=== PATIENT | female | born 2000 | race Caucasian/White ===

== ENCOUNTER 2022-07-21 11:48 | Emergency (ER) | payer MEDICAID, SELFPAY ==
[2022-07-21 12:19] VITALS: BP 114/73; PULSE 117; RESP 22; TEMP 36.7; O2SAT 97
--- NOTE | 2022-07-21 12:23 | ED.GENADULT ---
HPI - General Adult General Time Seen by Provider: 12:23 Date Seen: 07/21/22 Chief complaint: Cough Stated complaint: ear and nose drainage, headache Time Seen by Provider: 07/21/22 12:05 Source: patient, family and RN notes reviewed Mode of arrival: wheelchair Limitations: no limitations History of Present Illness HPI narrative: Patient is a 21-year-old female accompanied by family into the ER with concern of a secondary infection from COVID. She had COVID about 2 weeks ago, recovered without complication, was fine all last week. No current fevers. No last day or so has started with nasal drainage, headache again, has had some otalgia on the left side and today noted ear drainage. Related Data Home Medications Medication Instructions Recorded Confirmed oxybutynin chloride 5 mg tablet mg 07/21/22 Previous Rx's Medication Instructions Recorded amoxicillin 875 mg-potassium 1 tab PO BID #20 tabs 07/21/22 clavulanate 125 mg tablet ciprofloxacin 0.2 %-hydrocortisone 3 drp otic (ear) BID 7 days #10 mL 07/21/22 1 % ear drops,suspension (Cipro HC) Allergies Allergy/AdvReac Type Severity Reaction Status Date / Time ibuprofen Allergy Verified 07/21/22 12:16 latex Allergy Verified 07/21/22 12:16 vancomycin Allergy Verified 07/21/22 12:16 Review of Systems Status of ROS: Reports: 6 or more systems reviewed and unremarkable except as noted in History and below [facility] Social History Smoking Status: Never smoker Do you use any of these nicotine containing products: None How often do you have a drink containing alcohol: never AUDIT-C Alcohol total score: 0 Non-prescribed substance use: denies use service: No Exam Const: Vital Signs, click to edit/add: Vital Signs - 24 hr 07/21/22 12:19 Temperature 98.0 F Pulse Rate [Right Pulse Oximeter] 117 H Respiratory Rate 22 Blood Pressure [Ri ght Upper Arm] 114/73 Pulse Oximetry 97 Oxygen Delivery Me thod Room Air Patient is a 21-year-old female in her wheelchair, alert interactive no apparent stress. Common normals: no apparent distress, average body habitus, oriented x3, no limitations, healthy appearing, alert and well nourished General appearance: cooperative, comfortable, well kempt and well developed HENMT: Other: Pupils equal round reactive to light sclera clear. Right external ear and canal are normal, the tympanic membrane has loss of landmarks, erythema peripherally and mucoid material behind it causing some distortion. She has yellowish greenish drainage in her left ear canal but the external structures are normal. Cannot see down to the tympanic membrane but reviewed with them that this is most definitely perforated due to underlying infection. Anterior nares external nose normal. Oral mucosa is glistening, tongue normal. Uvula is normal without any swelling. Just to the right of the uvula, there is a little white pinpoint spot that could be an early aphthous ulcer that is coming, patient states she is having no pain. Neck is supple, no adenopathy noted. Lungs are clear with good air entry, no tachypnea, no wheezing or crackles noted. CV is regular, no murmur. Neuro: Common normals: oriented x3 Sensorium/orientation: alert Psych: Appearance: well kempt Course Course Hospital Course: Have reviewed with them that she actually appears to have bilateral ear infections, would treat her right ear if this was a presenting complaint. With a perforation in the left tympanic membrane, are going to need to use drops in this ear as well. We discussed cleaning external debris out of the ear, they are comfortable doing so. Have been advised not put anything deep into the canal. Vital Signs Vital signs: Initial Vital Signs Temperature 98.0 F 07/21/22 12:19 Temperature Source Temporal Artery Scan 07/21/22 12:19 Pulse Rate 117 H 07/21/22 12:19 Respiratory Rate 07/21/22 12:19 Blood Pressure 114/73 07/21/22 12:19 Blood Pressure Mean 86 07/21/22 12:19 Blood Pressure Position Sitting 07/21/22 12:19 Pulse Oximetry 97 07/21/22 12:19 Oxygen Delivery Method 07/21/22 12:19 Vital Signs Temperature 98.0 F 07/21/22 12:19 Pulse Rate 117 H 07/21/22 12:19 Respiratory Rate 22 07/21/22 12:19 Blood Pressure 114/73 07/21/22 12:19 Pulse Oximetry 97 07/21/22 12:19 Oxygen Delivery Method 07/21/22 12:19 Temperature 98.0 F 07/21/22 12:19 Pulse Rate 117 H 07/21/22 12:19 Respiratory Rate 22 07/21/22 12:19 Blood Pressure 114/73 07/21/22 12:19 Pulse Oximetry 97 07/21/22 12:19 Oxygen Delivery Method 07/21/22 12:19 Critical Care Time Critical Care Time Critical Care Time: No Discharge Plan Discharge Clinical Impression: Acute right otitis media, Acute otitis media of left ear with perforation Patient Disposition: Home, Self-Care Condition: Stable Instructions: Ruptured Eardrum (ED), How to Use Ear Drops (ED), Ear Infection (ED) Additional Instructions: Start oral antibiotics today and take as prescribed. May need to eat yogurt or use probiotic to help with antibiotic associated diarrhea. Need to use the ear drops to the left ear as there most definitely is a perforation of the eardrum. Need recheck in clinic in about 2 weeks to assess the underlying left eardrum, hopefully this will close off on its own. In the meantime, if you are worsening with concerning symptoms, are not improving in the next few days, would recommend re-evaluation. Prescriptions: New amoxicillin-pot clavulanate 875-125 mg tablet 1 tab PO BID Qty: 20 0RF Cipro HC 0.2-1 % drops,suspension 3 drp otic (ear) BID 7 Days Qty: 10 0RF No Action oxybutynin chloride 5 mg tablet Label Comments: TAKE ONE TABLET BY MOUTH TWICE DAILY Follow Up/Referrals: Ignacia Duran MD [Primary Care Provider] - Stand Alone [facility]
== END 2022-07-21 13:17 | disposition home or self-care (01) ==
PROVIDERS: Emergency Provider Family Medicine; PCP Pediatrics
DX: H66.93 Otitis media, unspecified, bilateral (principal); H72.92 Unspecified perforation of tympanic membrane, left ear
CPT/HCPCS: 87502; 87634; 87635; 99283; 99284

== ENCOUNTER 2023-10-31 19:40 | Emergency (ER) | payer MEDICARE, BC, MEDICAID, SELFPAY ==
[2023-10-31 19:48] VITALS: BP 135/78; PULSE 89; RESP 18; TEMP 36.7; O2SAT 99; BMI 24.8
--- NOTE | 2023-10-31 19:49 | ED.GENADULT ---
HPI - General Adult General Date Seen: 10/31/23 Chief complaint: Ear/Nose/Throat Problem Stated complaint: L ear infection Time Seen by Provider: 10/31/23 19:48 History of Present Illness HPI narrative: 23-year-old female who has a history of paraplegia, wheelchair-bound, presenting to the ER for evaluation of. She does have a history of otitis media in June 2022-treated with Augmentin. She has no history of diabetes or immunosuppression. No cancer chemotherapy. She presents to the ER today with her caregiver. She developed left ear pain radiating to left side of her neck this evening. No other antecedent symptoms such as fever or chills or cough or nasal congestion. No ear trauma. She does have a long history of excessive earwax and normally has an device like a soft screwdriver that she uses to remove her earwax at home. She felt like she might have earwax plug in upper here tonight because she was unable to hear anything. She could not find her device removed the wax and then her ear started hurting a lot anyway. It has not been swollen. No redness. No trauma. Related Data Home Medications ?Medication ?Instructions ?Recorded ?Confirmed oxybutynin chloride 5 mg tablet 5 mg PO BID 07/21/22 10/31/23 indapamide 1.25 mg tablet 1.25 mg PO QAM 10/31/23 10/31/23 potassium chloride 10 mEq 10 meq PO BID 10/31/23 10/31/23 tablet,extended release(part/cryst) Allergies Allergy/AdvReac Type Severity Reaction Status Date / Time ibuprofen Allergy Intermediate 1 Kidney Verified 10/31/23 19:52 vancomycin Allergy Intermediate Swapnil Verified 10/31/23 19:52 Syndrome latex Allergy Mild Rash Verified 10/31/23 19:52 PFSH PFS Social History Smoking Status: Never smoker Do you use any of these nicotine containing products: None How often do you have a drink containing alcohol: never AUDIT-C Alcohol total score: 0 Non-prescribed substance use: denies use service: No Exam Narrative: Exam Narrative: Constitutional: Appears well-developed and well-nourished. Active. Non-toxic appearing. Caregiver attentively at her side HENT: Head: Atraumatic. No signs of injury. No depressed skull fracture, Raccoon Eyes, Slater's sign, or hemotympanum. Face normal. Right ear: Mastoid, pinna, canal are normal. There is a small to moderate amount of cerumen but I am able to see the TM. TM is normal. Left ear: Mastoid and PIN are normal. She does complain of tenderness with palpation of the pinna. No redness. Canal is completely occluded by a soft yellowish/weight is cerumen. Cerumen was extracted using a lighted ear curette. We removed copious cerumen. No foreign body. I was able to visualize the TM which does appear normal. There does appear to be some purulent debris adherent to the wall of the canal and still some residual cerumen that I am not able to remove because it is too uncomfortable for the patient. Clinically consistent with otitis externa on the left ear canal Nose: No nasal discharge. Mouth/Throat: Mucous membranes are moist. Pharynx is normal. Tonsils symmetric. Uvula midline. Airway patent. Eyes: Conjunctivae normal and EOM are normal. Pupils are equal, round, and reactive to light. Right eye exhibits no discharge. Left eye exhibits no discharge. No icterus. Neck: Normal range of motion. Neck supple. No adenopathy. No stridor. No swelling or redness on the left neck. No adenopathy. Trachea midline. Airway patent. Cardiovascular: Normal rate and regular rhythm. No murmur heard. No murmurs, rubs, or gallops. Brisk capillary refill Pulmonary/Chest: Effort normal. No stridor. No respiratory distress. No wheezes.No rhonchi. No rales. No retractions. Musculoskeletal: Normal range of motion. No edema. No tenderness. No deformity. Neurological: Alert. Normal strength. No cranial nerve deficit or sensory deficit. Coordination normal. GCS eye subscore is 4. GCS verbal subscore is 5. GCS motor subscore is 6. Skin: Skin is warm. No rash noted. Const: Vital Signs, click to edit/add: Vital Signs - 24 hr 10/31/23 19:48 Temperature 98.0 F Pulse Rate [Right Pulse Oximeter] 89 Respiratory Rate 18 Blood Pressure [Ri ght Upper Arm] 135/78 Pulse Oximetry 99 Oxygen Delivery Me thod Room Air Course Vital Signs Vital signs: Initial Vital Signs Temperature 98.0 F 10/31/23 19:48 Temperature Source Temporal Artery Scan 10/31/23 19:48 Pulse Rate 89 10/31/23 19:48 Respiratory Rate 18 10/31/23 19:48 Blood Pressure 135/78 10/31/23 19:48 Blood Pressure Mean 97 10/31/23 19:48 Blood Pressure Position Sitting 10/31/23 19:48 Pulse Oximetry 99 10/31/23 19:48 Oxygen Delivery Method Room Air 10/31/23 19:48 Vital Signs Temperature 98.0 F 10/31/23 19:48 Pulse Rate 89 10/31/23 19:48 Respiratory Rate 18 10/31/23 19:48 Blood Pressure 135/78 10/31/23 19:48 Pulse Oximetry 99 10/31/23 19:48 Oxygen Delivery Method Room Air 10/31/23 19:48 Temperature 98.0 F 10/31/23 19:48 Pulse Rate 89 10/31/23 19:48 Respiratory Rate 18 10/31/23 19:48 Blood Pressure 135/78 10/31/23 19:48 Pulse Oximetry 99 10/31/23 19:48 Oxygen Delivery Method Room Air 10/31/23 19:48 Medical Decision Making MDM Narrative Medical decision making narrative: This patient presents for evaluation of left otalgia. The patient has an exam consistent with cerumen impaction, which I removed with a lighted curette curette and resultantly revealed otitis externa. She actually notes significant improvement in her pain just by removing the impacted cerumen. Still mild pain but she thinks it would be easily manageable with Tylenol or ibuprofen at home. Differential considered in this patient with otalgia included mastoiditis, meningitis, perforation, cerumen impaction, mass, dental abscess, or peritonsillar abscess, referred pain, cholesteatoma, otitis externa, etc. Tylenol or Ibuprofen for pain. Topical antibiotic drops for the externa are noted below. Return if increasing pain, fever, decrease in hearing or ear discharge. Follow-up with primary physician in 7-10 days, if symptoms persist and ENT consultation may be needed as outpatient. Precautions for immediate return to the ER for worsening pain, new redness or swelling of the ear or mastoid, fever chills, diffuse headache, or other worsening symptoms. Instymeds prescription for Cortisporin otic 4 drops 4 times daily. Discharge Plan Discharge Clinical Impression: Otitis externa, Cerumen impaction Patient Disposition: Home, Self-Care Condition: Stable Instructions: Swimmer's Ear (ED) Additional Instructions: As we discussed, please come back to the ER if you have worsening pain, increasing redness and swelling of your ear or around her ear, fever, headache, or any problems. Use the antibiotic drops (Cortisporin) 4 drops into her left ear canal 4 times daily for the next 5 days. After she put the drops in her ear, try to keep laying on your right side or till your head so that your left ear point up. This will allow the drops stay in your ear canal to treat the infection. Prescriptions: No Action oxybutynin chloride 5 mg tablet 5 mg PO BID Patient Comments: TAKE ONE TABLET BY MOUTH TWICE DAILY indapamide 1.25 mg tablet 1.25 mg PO QAM potassium chloride 10 mEq tablet,ER particles/crystals 10 meq PO BID Follow Up/Referrals: Ignacia Duran MD [Primary Care Provider] - Stand Alone Forms: [employer] Info Instructions
--- OUTSIDE RECORDS SUMMARY | 2023-10-31 20:44 | XMS_ITS | Clinical Summary ---
Author Organization [employer] [facility] Address [place], [place] [address] Care Team Providers Care Jig Fitter Name Role Phone Ignacia Duran MD Primary Care Provider Maren vailable Allergies Active Allergy Reactions Criticality Noted Date Comments Latex Other - Describe In Comment Field 10/08/2013 Has spina bifida Medications Medication Sig Dispensed Refills Start Date End Date Status multivitamin (MVI) tablet Take 1 tablet by mouth once daily. 0 01/17/2014 Active oxybutynin (DITROPAN) 5 mg tabletIndications:Spi na bifida of dorsal region (HC) Take 1 tablet by mouth once daily. 90 tablet 0 06/09/2015 Active medication order composerIndications:P araplegia (HC),Spina bifida of thoracic region, unspecified hydrocephalus presence Seat Cushion for Wheelchair 1 Each 01/20/2017 Active docusate (COLACE) 100 mg capsule Take 100 mg by mouth. Active silver-foam bandage (AQUACEL AG FOAM) 1.2 %- 10 X 12 bndgIndications:Skin infection Apply topically to affected area(s). 10 Each 06/05/2018 Active naproxen (NAPROSYN) 375 mg tabletIndications:Bur sitis of right shoulder Take 1 tablet by mouth 2 times daily with meals. 20 tablet 08/24/2018 Active Foam Bandage (TENDRA MEPILEX BORDER) 4 X 4 bndgIndications:Press ure injury of left elbow, stage 3 (HC) Apply topically to affected area(s). 10 Each 10/29/2018 Active hydrocolloid dressing 4 X 4 bndgIndications:Skin infection Apply topically to affected area(s). 10 Each 04/20/2019 Active medication order composer Gentamicin 30 mg flush injectable solution 0 04/29/2019 Active OTHER PEDIATRIC FLUIDS Polymyxin 500,000units/1L - Gentamicin 400mg/1L - in Normal Saline for irrigation with 30mL one time daily instill into bladder as instructed 04/20/2019 Active cephalexin (KEFLEX) 500 mg capsule Take 500 mg by mouth. 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 04/29/2011 UTI (urinary tract infection) 04/24/2011 Paraplegia 02/21/2009 Spina bifida of dorsal region 02/21/2009 Resolved Problems Problem Noted Date Diagnosed Date Resolved Date Adjustment disorder with mix ed disturbance of emotions and conduct 07/04/2011 11/23/2018 Immunizations Name Administration Dates Next Due DTaP 01/18/2008,05/06/2005 [id number] (Pediarix) 05/27/2003,03/21/2003,0 2002 HIB PRP-T (ActHIB,Hiberix) 05/27/2003,03/21/2003 ,2002 HPV 9 (Gardasil 9) 06/17/2019,12/18/2017 Hepatitis A (Peds) 01/18/2008,08/08/2006 Hib Conjugate, Unspecified 05/27/2003,03/21/2003 ,2002 Inactivated Polio Vaccine 01/18/2008 Influenza A (H1N1), Inactivated 03/18/2009 Influenza A (H1N1), Inactiva christine (Age 6-35 Mos) 03/30/2004,05/27/2003 Influenza A (H1N1), Inactiva christine (Age >=3 Years) 03/18/2009 Influenza Virus, Unspecified 02/26/2016,02/22/20 09,05/27/2003 Influenza, IIV3 (Age 6-35 mos) 1,03/23/2007,03/30/2004,05/27 Influenza, IIV3 (Age >=3 years) 06/09/19 14,04/23/2012,02/25/2011,02/21,03/23/2007,03/30/2004 Influenza, IIV4 03/27/2021, 0,06/17/2019,03/06,02/26/2016,04/27/2014 MMR 01/18/2008,09/15/2003 Meningococcal Vaccine (Menveo) 06/17/2019,2014 Pneumococcal conj 7-Valent (Prevnar 7) 4,03/21/2003,2002 Tdap 01/16/2015 Tdap, Unspecified 01/16/2015 Varicella Vaccine 01/18/2008,09/15/2003 Family History Medical History Relation Name Comments Diabetes Father Other Father obese,> 500 aravind nds/ from a blood infection Psychiatric illness Mother Bipolar disorder Anesthesia Problem No Family History Blood Disease No Family History Relation Name Status Comments Father blood infection Maternal Grandfather Maternal Grandmother Mother Alive Social History Tobacco Use Types Packs/Day Years Used Date Smoking Tobacco: Passive Smo ke Exposure - Never Smoker Smokeless Tobacco: Never Tobacco Cessation:Counseling Given: Yes Comments:family smokes Alcohol Use Standard Drinks/Week Comments No 0 (1 standard drink = 0.6 oz pur e alcohol) PHQ-2 Answer Date Recorded PHQ-2 TOTAL SCORE 0 01/11/2020 Social Connections Answer Date Recorded Frequency of Communication with Friends and Fami ly Not on file 05/22/2021 Financial Resource Strain Answer Date R ecorded Difficulty of Paying Living Expenses Not on file 05/22/2021 Difficulty of Paying Living Expenses Not on file 05/22/2021 Sex and Gender Information Value Date Recorded Sex Assigned at Not on file Gender Identity Not on file Sexual Orientation Not on file Obstetrics History Para Term AB IAB SAB Ectopic Multiple Livin g Live Births 0 0 0 0 0 0 0 0 0 0 Last Filed Vital Signs Vital Sign Reading Time Taken Comments Blood Pressure 123/80 07/12/2021 1:30 PM [employer] WORK[employer] SUPERVISOR Pulse 98 07/12/2021 1:30 PM [employer] SUPER[employer] Temperature 36.9 ??C (98.5 ??F) 07/12/2021 1:30 PM CS T Respiratory Rate 18 07/03/2015 5:27 PM [employer] SUPERVISOR Oxygen Saturation 98% 07/12/2021 1:30 PM [employer] SUPER[employer]OR Inhaled Oxygen Concentration - - Weight 61.2 kg (135 lb) 07/03/2015 5:27 PM [employer] SUPERVISOR Height - - Body Mass Index - - Plan of Treatment Health Maintenance Due Date Last Done Comments HIV for age 15-65 2017 HPV series for age 9-26 (3 - 3-dose series) 09/09/2019 06/17/2019, 12/18/2017 BMI (ht and wt on same day) for age 18+ 2020 Hepatitis C screening for age 18-79 2020 Depression screening for age 12+ 01/12/2021 01/13/2020, 01/11/2020, 12/29/2018, Additional history exists COVID-19 vaccine series (2022- season) 2023 05/02/2022, 03/27/2021, 09/18/2020, Additional history exists Pap test for age 21-65 09/17/2023 Influenza for age 9-49 01/25/2024 , 03/22/2020, 06/17/2019, Additional history exists Tetanus booster 01/16/2025 01/16/2015, 01/16/2015 Pneumococcal series for age 6-64 Aged Out 05/27/2003, 03/21/2003, 2002 No longer eligible based on patient's age to complete this topic Tdap Completed 01/16/2015, 01/16/2015 Meningococcal series for age 11-21 Completed 06/17/2019, 01/16/2015 Advance Directives Documents on File Type Date Recorded Patient [employer] Carpenter Expl anation Power of Physician Asst 06/24/2023 1:00 PM Care Teams Jig Fitter Relationship Specialty Start Date End Date Ignacia Duran MD PCP - General Pediatric 10/07/19
--- OUTSIDE RECORDS SUMMARY | 2023-10-31 20:45 | XMS_ITS | Patient Health Record ---
Author Organization [facility] Address [facility] [address] [place] [address] Care Team Providers Care Lodge Sales Associate Name Role Phone Ignacia Duran MD Primary Care Provider [phone] ADOLFO PAZ MD Reason For Referral No Information Medications Medication SIG (Take, Route, Fr equency, Duration) Notes Start Date End Date Status Gentamicin Sulfate 40 MG/ML 30ML QHS Intravesically BID for 30 days 12/30/2019 Active Problems Problem Type SNOMED Code ICD Code Onset Dates Problem Status W/U Status Risk Notes Problem 776860460 Neurogenic bladd er (N31.9) Active confirmed Problem Hydrocephalus (269600100) Hydrocephalus (G91.9) Active confirmed Problem 01709898 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 Problem 660096791 Acute pyonephros is (N13.6) Active confirmed Problem 616474171 Obesity (BMI 30-39.9) (E66.9) Active confirmed Problem 04129582 Spina bifida of lumbosacral region with 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) Active confirmed Problem 41301976 Acute pyelonephritis (N10) Active confirmed Problem Sepsis (83090779) Sepsis, due to unspecified organism (A41.9) Active confirmed Problem 07510262 Bilateral nephrolithiasis (N20.0) Active confirmed Plan Of Treatment Pending Test Test Name Order Date UDS- Flow, ru, EMG, CMG w/UA/UC and mario tion 12/02/2019 Insurance Providers Payer Name Payer Address Payer Phone Subscriber Number Group Number Insured Name Patient Relationship to Insured Coverage Start Date Coverage End Date [facility] [address] [address] [place] [id number] Fe Escudero Child - Insured has Financial Responsibility [facility] [employer] [address] [address] [place] [address] [id number] Laina Escudero Self - patient is the insured
--- OUTSIDE RECORDS SUMMARY | 2023-10-31 20:45 | XMS_ITS | Clinical Summary ---
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 Name Role Phone Carlos Joyner MD Unavailable [phone] Jadon Murray MD Unavailable Maru Villagomez RN Unavailable Unavailable Ang Slade MD Unavailable Carlos Joyner MD Unavailable [phone] Ang Slade MD Unavailable Lakshmi Wilhelm-C Unavailable Heladio Willoughby MD Primary Care Provider Heladio Willoughby MD Unavailable Alissa Perez PA-C Unavailable [phone] LaLakshmi morales-C Unavailable [phone] Allergies Active Allergy Reactions Criticality Noted Date Comments Ibuprofen Nephrotoxicity 02/04/2023 Due to hx of horseshoe kidney and recurrent nephrolithiasis Latex 10/04/2010 PN: Converted from LW Latex Sensitivity Flag Nsaids Nephrotoxicity 04/16/2023 Due to hx of horseshoe kidney and nephrolithiasis Vancomycin 02/17/2011 Other reaction(s): redmans Other reaction(s): redmans Medications Medication Sig Dispensed Refills Start Date End Date Status docusate sodium (COLACE) 100 MG capsule Take 100 mg by mouth every evening Active Elastic Bandages & Supports (PATEL ELASTIC BANDAGE 4) MISC Apply 1 each topically 11/09/2018 Active Multiple Vitamin (MULTI-VITAMINS) TABS Take 1 tablet by mouth every evening Active sodium chloride 0.9%, bottle, 0.9 % irrigation Irrigate with 60 mLs as directed 2 times daily Instill 60 ml into bladder along with Gentamicin solution Active MONOJECT HYPODERMIC NEEDLE 18G X 1 MISC USE TO FLUSH BLADDER 11/09/2019 Active B-D SYRINGE LUER-OLGA 30 ML MISC USE TO FLUSH BLADDER 11/09/2019 Active NEW MEDIndications:Recur rent UTI 480 MG Gentamicin in 1 Liter 0.9 Normal Saline. Instill 60 mL of Gentamicin solution into bladder at HS 1800 mL 11 03/15/2020 Active Additional Information Patient taking differently: EVERY EVENING, 480 MG Gentamicin in 1 Liter 0.9 Normal Saline. Instill 60 mL of Gentamicin solution into bladder at HS, Reported on 11/13/2021 Saline Bacteriostatic (SODIUM CHLORIDE BACTERIOSTATIC) 0.9 % SOLN flushIndications:Rec urrent UTI Irrigate with 30 mLs as directed At Bedtime for 31 doses 930 mL 11 08/09/2020 Active NEW MEDIndications:DUPIC ATE 480mg Gentamicin in one liter of Normal Saline. Instill 30 ml of gentamicin solution into bladder at bedtime 930 mL 11 08/09/2020 Active acetaminophen (TYLENOL) 325 MG tablet Take 325-650 mg by mouth every 6 hours as needed for mild pain Active bisacodyl (DULCOLAX) 5 MG EC tablet 0 Refill(s), Maintenance 03/13/2021 Active polyethylene glycol (MIRALAX) 17 GM/Dose powder See Instructions, 1-3 tsp as needed to maintain soft stools, # 527 g, 1 Refill(s), Maintenance, other 03/13/2021 Active Wound Dressings (MEDIHONEY CA ALGINATE 2X2) PADSIndications:Pres sure ulcer acquired in Externally apply 1 each topically daily 10 each 04/16/2023 Active indapamide (LOZOL) 1.25 MG tabletIndications:Hy percalciuria Take 1 tablet (1.25 mg) by mouth every morning 90 tablet 3 06/17/2023 Active potassium chloride ER (K-TAB) 20 MEQ CR tabletIndications:Hy percalciuria Take 1 tablet (20 mEq) by mouth daily 90 tablet 3 06/17/2023 Active potassium chloride ER (KLOR-CON M) 10 MEQ CR tabletIndications:Hy percalciuria Take 1 tablet (10 mEq) by mouth 2 times daily 90 tablet 3 06/23/2023 Active oxyBUTYnin (DITROPAN) 5 MG tabletIndications:Bl adder spasms TAKE ONE TABLET BY MOUTH TWICE DAILY 180 tablet 07/18/2023 Active sulfamethoxazole-tri methoprim (BACTRIM DS) 800-160 MG tabletIndications:Re current UTI Take 1 tablet by mouth 2 times daily 14 tablet 08/14/2023 Active Additional Information Patient not taking.Reported on 09/05/2023 Hospital, Clinic, or Other Facility Administered Medication Ordered Dose Route Frequency Start Date End Date Status medroxyPROGESTERone (DEPO-PROVERA) injection 150 mgIndications: control counseling 150 mg IM EVERY 3 MONTHS 04/16/2023 04/10/2024 Ac tive Active Problems Problem Noted Date Diagnosed Date Mild intellectual disability 04/18/2023 Overview: Dx through Neuropsych testing in 2021 Bilateral nephrolithiasis 03/31/2023 Horseshoe kidney 03/05/2023 History of major vascular surgery 08/02/2020 Hx of thrombosis 08/02/2020 Overview: In arm, 2/2 arm getting stuck overnight. Was on heparin injections. 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 10/15/2023 Travel 10/14/[address] [facility] [address] [place] [phone] Heladio Willoughby MD Dme 10/10/2023 Travel 10/06/2023 PRE VISIT [facility] [address] [phone] Lakshmi Wilhelm PA-C Pre Visit Planning - Done (UDS for neurogenic bladder/urinary incontinence. Records available in EPIC.) 10/01/2023 Telephone [facility] [address] [phone] Alissa Perez PA-C Appointment (Rescheduled 11/25 Appt) 09/24/2023 Orders Only [facility] Service Line [address] [place] [phone] Carlos Joyner MD 09/23/2023 8:00 AM CDT Virtual Visit [facility] [address] [phone] Carlos Joyner MD Kidney stone (Primary Dx) 09/18/[address] [facility] [address] [place] [phone] Heladio Willoughby MD Medication Question 09/18/2023 MyC Medical Advice [facility] [address] [phone] Carlos Joyner MD 09/17/2023 Telephone [facility] [address] [phone] Carlos Joyner MD Orders; update perscription order notes 09/17/[address] [facility] [address] [place] [phone] Heladio Willoughby MD Orders 09/17/2023 PRE VISIT [facility] [address] [phone] Carlos Joyner MD Pre Visit Planning - Done 2023 8:16 AM CDT - 2023 11:59 PM CDT Hospital Encounter [facility] [address] [place] [place] [address] [place] [phone] Carlos Joyner MD Kidney stone Discharge Disposition: Home or Self Care 2023 8:15 AM CDT Hospital Encounter [facility] [address] [place] [address] [place] [phone] Carlos Joyner MD Kidney stone Discharge Disposition: Home or Self Care 2023 Orders Only [facility] [address] [phone] Roberto Rod Kidney stone 2023 Travel 09/14/2023 Orders Only [facility] [address] [phone] Rosita Velasco RN Urinary incontinence, unspecified type (Primary Dx) 09/08/2023 MyC Medical Advice [address] [phone] Bhavna Ferris 09/08/[address] [phone] Lakshmi Wilhelm PA-C Appointment 09/05/2023 8:30 AM CDT Virtual Visit [address] [phone] Lakshmi Wilhelm PA-C Urinary incontinence, unspecified type (Primary Dx); Neurogenic bladder; Continuous leakage of urine 09/05/[address] [phone] Heladio Willoughby MD Orders 09/04/2023 MyC Medical Advice [address] [phone] Tanisha Kaur RN 09/03/2023 Telephone [facility] [address] [phone] Carlos Joyner MD Prior Auth - Medication (Gentamicin 480mg/l bladder irrigation (compounded)-primar y INSURANCE PA APPROVED) 09/03/[address] [phone] Heladio Willoughby MD Nurse Advice Line (update) 09/02/2023 11:00 AM CDT Office Visit [address] [phone] Heladio Willoughby MD Diarrhea of presumed infectious origin (Primary Dx); Rectal bleeding; Continuous leakage of urine; Neurogenic bladder; Irregular heartbeat; control counseling; Paraplegia (H) 09/02/2023 Travel 09/01/2023 Travel 08/29/[address] [facility] [address] [place] [phone] Heladio Willoughby MD wound care orders; Referral; [facility] 08/29/[address] [facility] [phone] [place] [phone] Heladio Willoughby MD Forms; Orders 08/26/2023 1:30 PM CDT Virtual Visit [facility] [address] [phone] Lakshmi Wilhelm PA-C Neurogenic bladder (Primary Dx) 08/22/2023 Telephone [facility] [address] [phone] Carlos Joyner MD Prior Auth - Medication (Gentamicin 480mg/l bladder irrigation (compounded)-PA DENIED-APPEAL INITIATED TO [employer]) 08/18/[address] [facility] [address] [place] [phone] Analisa Conner 08/18/2023 [facility] Medical Advice [facility] [phone] [place] [phone] Heladio Willoughby MD Call To Schedule Appointment (Follow up: D... 08/13/2023 11:[address] [facility] [id number] [place] [phone] Recurrent UTI 08/13/2023 Travel 08/12/2023 Telephone [facility] [address] [phone] Rosita Velasco RN Clinic Care Coordination - Follow-up (Symptoms ) 08/05/2023 Medical Correspondence [facility] [address] [place] [phone] Scan, Non-Provider 08/01/2023 Documentation Only [facility] [address] 4th [place] [phone] Carlos Joyner MD Forms; Orders from Last 3 Months Immunizations Name Administration Dates Next Due DTAP (<7y) 01/18/2008,05/06/2005 DTaP, Unspecified 01/16/2015 DTaP/HepB/IPV 05/27/2003,03/21/2003,2002 Flu, Unspecified 02/26/2016,02/21/2009, 4 E3g3-13 Novel Flu 03/18/2009 T9b1-74 Novel Flu P-free 03/30/2004,05/27/2003 HEPATITIS A (PEDS 12M-18Y) 01/18/2008,08/08/2006 HIB (PRP-T) 05/27/2003,03/21/2003,2002 HIB, Unspecified 05/27/2003,03/21/2003, 3 HPV9 04/16/2023,06/17/2019,12/18/2017 Influenza (H1N1) 03/18/2009 Influenza (IIV3) PF 06/09/2013, 2,02/25/2011,02/21,03/23/2007,03/30/2004 Influenza Vaccine 18-64 (Flublok) 03/05/2023 Influenza Vaccine >6 months,quad, PF 12/2021,03/27/2021,03/22/2020,06/17,03/06/2018,02/26/2016,04/27/2014 Influenza Vaccine, 6+MO IM (QUADRIVALENT W/PRESERVATIVES) 05/02/2022,03/27/2021 Influenza, seasonal, injectable, PF 11/2 01/2012,02/25/2011,02/21/2009,03/23,03/30/2004,05/27/2003 MMR 01/18/2008,09/15/2003 Meningococcal ACWY (Menveo??) 06/17/2019, 015 Pneumococcal (PCV 7) 05/27/2003,03/21/2003,11/22 Poliovirus, inactivated (IPV) 01/18/2008, 005 TDAP (Adacel,Boostrix) 01/16/2015 Varicella 01/18/2008,09/15/2003 Family History Medical History Relation Comments Diabetes Father Morbid Obesity Father Mental Illness Mother Bipolar disorder Relation Status Comments Father Mother Social History Tobacco Use Types Packs/Day Years Used Date Smoking Tobacco: Never Smokeless Tobacco: Never Tobacco Cessation:Counseling Given: Not Answered Alcohol Use Standard Drinks/Week Comments Not Currently 0 (1 standard drink = 0.6 oz pur e alcohol) PHQ-2 Answer Date Recorded PHQ-2 Score 0 06/24/2023 Adolescent Education Answer Date Record ed Getting School Help Needed Not on file 02/15 Food Insecurity Answer Date Recorded Within the past 12 months, d id you worry that your food would run out before you got money to buy more? No 04/16/2023 Within the past 12 months, d id the food you bought just not last and you didn? t have money to get more? No 04/16/2023 Housing Stability Answer Date Recorded Do you have housing? Yes 04/16/2023 Are you worried about losing your housing? No 04/16/2023 Financial Resource Strain Answer Date R ecorded Within the past 12 months, h ave you or your family members you live with been unable to get utilities (heat, electricity) when it was really needed? No 04/16/2023 Transportation Needs Answer Date Record ed Within the past 12 months, h as lack of transportation kept you from medical appointments, getting your medicines, non-medical meetings or appointments, work, or from getting things that you need? Yes 04/16/2023 Sex and Gender Information Value Date Recorded Sex Assigned at Not on file Gender Identity Not on file Sexual Orientation Not on file Last Filed Vital Signs Vital Sign Reading Time Taken Comments Blood Pressure 116/64 09/02/2023 10:55 AM CDT Pulse 97 09/02/2023 10:55 AM CDT Temperature 36.9 ??C (98.4 ??F) 09/02/2023 10:55 AM C DT Respiratory Rate 20 09/02/2023 10:55 AM CDT Oxygen Saturation 97% 09/02/2023 10:55 AM CDT Inhaled Oxygen Concentration - - Weight 65.8 kg (145 lb) 10/15/2023 9:01 AM CDT Height 147.3 cm (4' 10) 10/15/2023 9:01 AM CDT Body Mass Index 30.31 10/15/2023 9:01 AM CDT Plan of Treatment Upcoming Encounters Date Type Department Care Team (Late st Contact Info) Description 11/26/2023 PRE VISIT [facility] [address] [phone] Alissa Perez PA-C [address] [place], [place] [phone] Previsit 12/08/2023 9:30 AM CDT Office Visit [facility] [address] [phone] [place] [address] [place], [place] [phone] Alissa Perez PA-C [address] [place], [place] [phone] Health Maintenance Due Date Last Done Comments ANNUAL REVIEW OF HM ORDERS 2002 PAP 09/17/2023 MEDICARE ANNUAL WELLNESS VISIT 04/16/2024 04/16/2023 DTAP/TDAP/TD IMMUNIZATION (8 - Td or Tdap) 01/16/2025 01/16/2015, 01/16/2015, 01/18/2008, Additional history exists ADVANCE CARE PLANNING 04/23/2028 04/23/2023 , 04/18/2023, 09/30/2022, Additional history exists CHLAMYDIA SCREENING 07/15/2028 Postpone d from 2002 (Patient Request) HEPATITIS C SCREENING 04/16/2043 Postpo florentin from 2020 (Other) HIV SCREENING 04/16/2043 Postponed from 2017 (Other) HEPATITIS B IMMUNIZATION Completed 004, 03/21/2003, 2002 Pneumococcal Vaccine: Pediatrics (0 to 5 Years) and At-Risk Patients (6 to 64 Years) Aged Out 05/27/2003, 03/21/2003, 2002 No longer eligible based on patient's age to complete this topic IPV IMMUNIZATION Completed 01/18/2008, 04/2005, 05/27/2003, Additional history exists MENINGITIS IMMUNIZATION Completed 06/17/2019, 01/16 INFLUENZA VACCINE Completed 03/05/2023, , 05/02/2022, Additional history exists COVID-19 Vaccine Completed 03/21/2023, 06/2020, 09/18/2020, Additional history exists HPV IMMUNIZATION Completed 04/16/2023, , 12/18/2017 PHQ-2 (once per calendar year) Completed 10/15/2023, 06/24/2023, 04/16/2023, Additional history exists RSV MONOCLONAL ANTIBODY Aged Out No l onger eligible based on patient's age to complete this topic Medical Devices Implanted Type Area Poacher Operator Device Identifier Shelf Expiration Date Model / Serial / Lot Stent Ureteral Percuflex Plus [id number] - [id number] Implanted:Qty: 1 on 11/12/2021 by Carlos Joyner MD at [facility] Stent Right: Abdomen [employer] [id number] 12/26/2022 [id number] / / [id number] Ureteral Catheter 5 [place] Implanted:Qty: 1 on 03/31/2023 by Elizabeth Jacobsen MD at [facility] Right: Ureter 02/02/2026 [id number] / / [id number] Description:5 arabic Uretera l catheter used as a stent in right ureter 5 [place] Island[place] Open Ended Catheter Implanted:Qty: 1 on 03/31/2023 by Elizabeth Jacobsen MD at [facility] Left: Ureter 02/19/2026 [id number] / / [id number] Explanted Type Area Poacher Operator Device Identifier Shelf Expiration Date Model / Serial / Lot Stent Ureteral Percuflex Plus [id number] - [id number] Implanted:Qty: 1 on 05/10/2021 by Carlos Joyner MD at [facility] Explanted:Qty: 1 on 08/09/2021 by Jane Gomez MD at [facility] Stent Right: Urethra [employer] 06/14/2022 [id number] Description:Ureter Stent Ureteral Percuflex Plus [id number] - [id number] Implanted:Qty: 1 on 05/10/2021 by Carols Joyner MD at [facility] Explanted:Qty: 1 on 08/09/2021 by Jane Gomez MD at [facility] Stent Left: Urethra [employer] 07/25/2022 [id number] Stent Ureteral Percuflex Plus [id number] - [id number] Implanted:Qty: 1 on 08/09/2021 by Jane Gomez MD at [facility] Explanted:Qty: 1 on 11/12/2021 at [facility] Stent Right: Ureter [employer] 02/29/2024 [id number] Stent Ureteral Percuflex Plus [id number] - [id number] Implanted:Qty: 1 on 08/09/2021 by Jane Gomez MD at [facility] Explanted:Qty: 1 on 11/12/2021 at [facility] Stent Right: Ureter [employer] 02/29/2024 [id number] 5 Fr X 22cm Ureteral Stent Explanted:Qty: 1 on 02/07/2020 by Carlos Joyner MD at [facility] COOK 5 Fr X 22cm Ureteral Stent Explanted:Qty: 1 on 02/07/2020 by Carlos Joyner MD at [facility] COOK Procedures Procedure Name Priority Date/Time Associated Diagnosis Comments US RENAL COMPLETE NON-VASCULAR Routine 2023 9:45 AM CDT Kidney stone BASIC METABOLIC PANEL Routine 2023 9:45 AM CDT Kidney stone XR KUB Routine 2023 8:47 AM CDT Kidney stone URINE CULTURE Routine 09/08/2023 9:30 AM CDT Urinary incontinence, unspecified type URINE MICROSCOPIC EXAM Routine 09/08/2023 9:30 AM CDT Neurogenic bladder Continuous leakage of urine UA MACROSCOPIC WITH REFLEX TO MICRO AND CULTURE Routine 09/08/2023 9:30 AM CDT Neurogenic bladder Continuous leakage of urine HCG QUALITATIVE URINE Routine 09/02/2023 12:13 PM CDT control counseling EKG 12-LEAD COMPLETE W/READ - CLINICS Routine 09/02/2023 12:11 PM CDT Irregular heartbeat URINE CULTURE Routine 08/13/2023 9:54 AM CDT Recurrent UTI URINE MICROSCOPIC EXAM Routine 08/13/2023 9:54 AM CDT Recurrent UTI URINE MACROSCOPIC WITH REFLEX TO MICRO Routine 08/13/2023 9:54 AM CDT Recurrent UTI from Last 3 Months Results * US Renal Complete Non-Vascular (2023 9:45 AM CDT) Anatomical Region Laterality Modality Abdomen/Pelvis Ultrasound Impressions 2023 1:57 PM CDT IMPRESSION: 1. ??No hydronephrosis. SARANYA HALL MD SYSTEM ID: [id number] Narrative 2023 1:57 PM CDT US RENAL COMPLETE NON-VASCULAR 2023 9:45 AM CLINICAL HISTORY: Kidney stone TECHNIQUE: Routine Bilateral Renal and Bladder Ultrasound. COMPARISON: CT 04/01/2023 FINDINGS: The kidneys are suboptimally visualized due to horseshoe configuration and bowel gas. No hydronephrosis on either side. Possible nonobstructing left renal calculi. BLADDER: Decompressed. Procedure Note Saranya Hall MD - 2023 US RENAL COMPLETE NON-VASCULAR 2023 9:45 AM CLINICAL HISTORY: Kidney stone TECHNIQUE: Routine Bilateral Renal and Bladder Ultrasound. COMPARISON: CT 04/01/2023 FINDINGS: The kidneys are suboptimally visualized due to horseshoe configuration and bowel gas. No hydronephrosis on either side. Possible nonobstructing left renal calculi. BLADDER: Decompressed. IMPRESSION: 1. No hydronephrosis. SARANYA HALL MD SYSTEM ID: [id number] Carlos Joyner MD IMG US ORDERABLES * Basic metabolic panel (Ca, Cl, CO2, Creat, Gluc, K, Na, BUN) (2023 9:45 AM CDT) [facility] Sodium 139 135 - 145 mmol/L 2023 10:12 AM CDT LABORATORY Comment:Reference intervals for this test were updated on 02/18/2023 to more accurately reflect our healthy population. There may be differences in the flagging of prior results with similar values performed with this method. Interpretation of those prior results can be made in the context of the updated reference intervals. Potassium 4.1 3.4 - 5.3 mmol/L 2023 10:12 AM CDT LABORATORY Chloride 106 98 - 107 mmol/L 2023 10:12 AM CDT LABORATORY Carbon Dioxide (CO2) 23 22 - 29 mmol/L 2023 10:12 AM CDT LABORATORY Anion Gap 10 7 - 15 mmol/L 2023 10:12 AM CDT LABORATORY Urea Nitrogen 10.9 6.0 - 20.0 mg/dL 2023 10:12 AM CDT LABORATORY Creatinine 0.51 0.51 - 0.95 mg/dL 2023 10:12 AM CDT LABORATORY GFR Estimate >90 >60 mL/min/1. 73m2 2023 10:12 AM CDT LABORATORY Calcium 9.5 8.6 - 10.0 mg/dL 2023 10:12 AM CDT LABORATORY Glucose 95 70 - 99 mg/dL 2023 10:12 AM CDT LABORATORY Blood STRUCTURE OF RIGHT UPPER LIMB / Unknown Venipuncture / Unknown 2023 9:45 AM CDT 2023 9:45 AM CDT Carlos Joyner MD LAB - BLOOD ORDERA BLES LABORATORY [facility] [address] Lab (1st floor, no room number) [place] [address] * XR KUB (2023 8:47 AM CDT) Anatomical Region Laterality Modality Abdomen/Pelvis Radio Fluoroscop y Impressions 2023 1:47 PM CDT IMPRESSION: Unremarkable bowel gas pattern. Previously seen stents are no longer demonstrated. No definite urolithiasis demonstrated currently. BAY GROSS MD Narrative 2023 1:47 PM CDT ABDOMEN ONE VIEW 2023 8:47 AM HISTORY: Kidney stone. COMPARISON: February 08, 2020. Procedure Note Bay Gross MD - 2023 ABDOMEN ONE VIEW 2023 8:47 AM HISTORY: Kidney stone. COMPARISON: February 08, 2020. IMPRESSION: Unremarkable bowel gas pattern. Previously seen stents are no longer demonstrated. No definite urolithiasis demonstrated currently. BAY GROSS MD Carlos Joyner MD IMG DIAGNOSTIC MAYLIN GING ORDERABLES * (ABNORMAL) UA Macroscopic with reflex to Microscopic and Culture - Lab Collect (09/08/2023 9:30 AM CDT) Color Urine Yellow Colorless, Straw, Light Yellow, Yellow 09/08/2023 11:54 AM CDT LABORATORY Appearance Urine Cloudy(A) Clear 09/08/19 11:54 AM CDT LABORATORY Glucose Urine Negative Negative mg/dL 09/08/2023 11:54 AM CDT LABORATORY Bilirubin Urine Negative Negative 11:54 AM CDT LABORATORY Ketones Urine Negative Negative mg/dL 09/08/2023 11:54 AM CDT LABORATORY Specific Pelzer Urine 1.020 1.003 - 1.035 09/08/2023 11:54 AM CDT LABORATORY Blood Urine Trace(A) Negative 09/08/2023 11:54 AM CDT LABORATORY pH Urine 6.0 5.0 - 7.0 09/08/2023 11:54 AM CDT LABORATORY Protein Albumin Urine Negative Negative mg/dL 09/08/2023 11:54 AM CDT LABORATORY Urobilinogen Urine 0.2 0.2, 1.0 E.U./dL 09/08/2023 11:54 AM CDT LABORATORY Nitrite Urine Positive(A) Negative 09/08/2023 11:54 AM CDT LABORATORY Leukocyte Esterase Urine Large(A) Negative 09/08/2023 11:54 AM CDT LABORATORY Urine URINE SPECIMEN FROM URINARY CONDUIT / Unknown Non-blood Collection / Unknown 09/08/2023 9:30 AM CDT 09/08/2023 11:38 AM CDT Heladio Willoughby MD LAB - URINE ORDERABL ES LABORATORY [facility] [address] [facility] Lab (no room number, 1st floor of clinic) [place] [address], [facility] * (ABNORMAL) Urine Microscopic Exam (09/08/2023 9:30 AM CDT) Only the most recent of2 resultswithin the time period is included. Bacteria Urine Many(A) None Seen /HPF LINDA 09/08/2023 11:54 AM CDT LABORATORY RBC Urine 2-5(A) 0-2 /HPF /HPF LINDA 09/08/2023 11:54 AM CDT LABORATORY WBC Urine 50-100(A) 0-5 /HPF /HPF LINDA 09/08/2023 11:54 AM CDT LABORATORY Squamous Epithelials Urine Few(A) None Seen /LPF LINDA 09/08/2023 11:54 AM CDT LABORATORY Urine URINE SPECIMEN FROM URINARY CONDUIT / Unknown Non-blood Collection / Unknown 09/08/2023 9:30 AM CDT 09/08/2023 11:38 AM CDT Heladio Willoughby MD LAB - URINE ORDERABL ES RM LABORATORY [facility] [address] [facility] (no room number, 1st floor of clinic) [place] [address] [facility] * (ABNORMAL) Urine Culture Aerobic Bacterial (09/08/2023 9:30 AM CDT) Only the most recent of2 resultswithin the time period is included. Culture 50,000-100,000 CFU/mL Gram positive cocci(A) 09/09/2023 2:26 PM CDT [facility] Culture 50,000-100,000 CFU/mL Gram positive cocci(A) 09/09/2023 2:26 PM CDT [facility] Culture 50,000-100,000 CFU/mL Gram positive cocci(A) 09/09/2023 2:26 PM CDT [facility] Culture <10,000 CFU/mL Non lactose fermenting gram negative bacilli(A) 09/09/2023 2:26 PM CDT [facility] Urine URINE SPECIMEN OBTAINED VIA INDWELLING URINARY CATHETER / Unknown Non-blood Collection / Unknown 09/08/2023 9:30 AM CDT 09/08/2023 11:38 AM CDT Lakshmi Wilhelm PA-C LAB - MICRO GENE RAL ORDERABLES [facility] Inf. Diseases Diag. Lab [address] [facility], [address] [place] [address], [place] * HCG qualitative urine (09/02/2023 12:13 PM CDT) hCG Urine Qualitative Negative Negative LINDA 09/02/2023 12:19 PM CDT LABORATORY Comment:This test is for scr eening purposes. Results should be interpreted along with the clinical picture. Confirmation testing is available if warranted by ordering [id number], HCG Quantitative . Urine URINE SPECIMEN / Unknown Non-blood Collection / Unknown 09/02/2023 12:13 PM CDT 09/02/2023 12:13 PM CDT Heladio Willoughby MD LAB - URINE ORDERABL ES LABORATORY [facility] [place] [facility] [address] [facility] (no room number, 1st floor of clinic) [place] [address], [facility] * EKG 12-lead complete w/read - Clinics (09/02/2023 12:11 PM CDT) Heladio Willoughby MD ECG ORDERABLES * (ABNORMAL) UA reflex to Microscopic (08/13/2023 9:54 AM CDT) Color Urine Yellow Colorless, Straw, Light Yellow, Yellow 08/13/2023 10:02 AM CDT LABORATORY Appearance Urine Cloudy(A) Clear 08/13/19 24 10:02 AM [facility] Glucose Urine Negative Negative mg/dL 08/13/2023 10:02 AM [facility] Bilirubin Urine Negative Negative 4 10:02 AM T LABORATORY Ketones Urine Negative Negative mg/dL 08/13/2023 10:02 AM CDT LABORATORY Specific Pelzer Urine 1.025 1.003 - 1.035 08/13/2023 10:02 AM T LABORATORY Blood Urine Trace(A) Negative 08/13/2023 10:02 AM [facility] pH Urine 6.0 5.0 - 7.0 08/13/2023 10:02 AM [facility] Protein Albumin Urine Negative Negative mg/dL 08/13/2023 10:02 AM [facility] Urobilinogen Urine 0.2 0.2, 1.0 E.U./dL 08/13/2023 10:02 AM [facility] Nitrite Urine Positive(A) Negative 08/13/2023 10:02 AM CDT LABORATORY Leukocyte Esterase Urine Moderate(A) Negative 08/13/2023 10:02 AM CDT LABORATORY Urine MID-STREAM URINE SPECIMEN / Unknown Non-blood Collection / Unknown 08/13/2023 9:54 AM CDT 08/13/2023 9:54 AM CDT Lakshmi Wilhelm PA-C LAB - URINE DENIE HUAN RM LABORATORY [facility] [place] [facility] [address] [facility] (no room number, 1st floor of clinic) [place] [address], [facility] from Last 3 Months Advance Directives For more information, please contact: [phone] Documents on File Type Date Recorded Patient Rhia Expl anation Advance Directives and Living Will 04/23/2023 First Fiduciary [place] (GUARDIAN; SEE ACP TAB/SCANNED LIST FOR AUTHORIZED STAFF) Legal Guardianship 04-08-2023 Advance Directives and Living Will 09/30/2022 superseded by 04-08-2023 lg; Legal Temporary Guardianship 06-24-2022 to 04-25-2023 Advance Directives and Living Will 09/30/2022 superseded by 023 order; Legal Temporary Guardianship 02-07-2022 to 06-14-2022 Advance Directives and Living Will 04/12/2022 superseded by 022 order: Legal Temporary Guardianship 09-27-2021 to 06-14-2022 * Full Code (Latest Code Status on File) Date Activated Date Inactivated Comments 04/02/2023 8:30 PM 04/04/2023 4:39 PM All basic a nd advanced life-sustaining interventions are performed as appropriate Question Answer Comments Code status determined by: Discussion with patie nt/ legal decision maker * Full Code Date Activated Date Inactivated Comments 03/31/2023 5:39 PM 04/02/2023 8:30 PM All basic an d advanced life-sustaining interventions are performed as appropriate Question Answer Comments Code status determined by: Unable to det ermine; FULL CODE until documents or legal decision maker available * Full Code Date Activated Date Inactivated Comments 11/12/2021 10:12 PM 11/13/2021 8:25 PM All basic a nd advanced life-sustaining interventions are performed as appropriate Question Answer Comments Code status determined by: Discussion with patie nt/ legal decision maker * Full Code Date Activated Date Inactivated Comments 02/12/2020 12:41 PM 11/12/2021 12:15 PM Question Answer Comments Code status determined by: Discussion with patie nt/ legal decision maker * Full Code Date Activated Date Inactivated Comments 02/05/2020 10:00 AM 02/12/2020 12:41 PM All basic and advanced life-sustaining interventions are performed as appropriate Question Answer Comments Code status determined by: Unable to dis cuss and no AD/POLST on file; continue PREVIOUSLY ORDERED code status Care Teams Assembly Machine Tool Setter Relationship Specialty [place] [address] [facility] [place] [address] PCP - General 03/05/23 Carlos Joyner MD [address] [place] [address] Urology 12/09/19 Jadon Murray MD [facility] [address] [facility] [address] [place] [address] Referring Physician Pediatric Surgery 12/09/19 Maru Villagomez, RN Registered Nurse 12/10/19 Ang Slade MD [address] [place] [address] [address] [place], [place] [id number] Urology 04/24/20 Carlos Joyner MD [address] [place] [address] [id number] Assigned Surgical Provider 12/24/20 Ang Slade MD [address] [place] [address] [address] [place], [place] 768365 Urology 12/18/22 Lakshmi Wilhelm PA-C [address] [place] [address] 567255 Physician Automotive Service [place] Urology 02/03/23 [place] [address] [place] [address] Assigned PCP 02/06/23 Alissa Perez PA-C [address] [place] [address] [phone] Physician [employer] Surgery 09/04/23 Lakshmi Wilhelm PA-C [address] [place] [address] [id number] Physician Automotive Service [place] Urology 09/16/23
--- OUTSIDE RECORDS SUMMARY | 2023-10-31 20:46 | XMS_ITS | Encounter Summary ---
Author Organization [facility] Address [address] [place] [address] Care Team Providers Care Numberer And Wirer Name Role Phone Carlos Joyner MD Unavailable [phone] Jadon Murray MD Unavailable [phone] Maru Villagomez RN Unavailable Unavailable Ang Slade MD Unavailable [phone] Carlos Joyner MD Unavailable [phone] Ang Slade MD Unavailable [phone] Lakshmi WilhelmC Unavailable [phone] Heladio Willoughby MD Primary Care Provider [phone] Heladio Willoughby MD Unavailable Alissa Perez PA-C Unavailable [phone] Lakshmi WilhelmC Unavailable Reason for Visit * Reason Comments Urodynamics Study Neurogenic bladder/u rinary incontinence Encounter Details Date Type Department Care Team (Latest Contact Info) Description 10/15/2023 9:00 AM CDT Allied Health/Nurse Visit [facility] [address] 4th [place] [address] Lakshmi Wilhelm PA-C [address] [place] [address] Urodynamics Study (Neurogenic bladder/urin... Social History Tobacco Use Types Packs/Day Years [...] on file Sexual Orientation Not on file documented as of this encounter Last Filed Vital Signs Vital Sign Reading Time Taken Comments Blood Pressure - - Pulse - - Temperature - - Respiratory Rate - - Oxygen Saturation - - Inhaled Oxygen Concentration - - Weight 65.8 kg (145 lb) 10/15/2023 9:01 AM CDT Height 147.3 cm (4' 10) 10/15/2023 9:01 AM CDT Body Mass Index 30.31 10/15/2023 9:01 AM CDT documented in this encounter Patient Instructions * Patient Instructions* Lakshmi Wilhelm PA-C - 10/15/2023 9:00 AM CDT UROLOGY CLINIC VISIT PATIENT INSTRUCTIONS Catheterize 5 times per day on school days. Catheterize 4 times per day on weekends and in the summer. If you start to experience UTIs or incontinence while catheterizing, please increase to 5 times per day. Continue daily bladder irrigations. You can do these more often as needed (for cloudy or smelly urine). Make sure you stay well hydrated. Follow up with Dr. Joyner in [address] scan prior to monitor kidney stones. If you have any issues, questions or concerns in the meantime, do not hesitate to contact us at [phone] or via [employer]. It was a pleasure meeting with you today. Thank you for allowing me and my team the privilege of caring for you today. YOU are the reason we are here, and I truly hope we provided you with the excellent service you deserve. Please let us know if there is anything else we can do for you so that we can be sure you are leaving completely satisfied with your care experience. documented in this encounter Progress Notes * Lakshmi Wilhelm PA-C - 10/15/2023 9:00 AM CDT Urology Virtual Visit - Follow Up Reason for visit: urinary incontinence HPI: Laina Escudero is a 23 year old female with neurogenic bladder secondary to spina bifida. 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 Joyner). For bladder management, she does CIC per urethra with help from family / caregivers. At her last visit with Dr. Slade on 05/05/2023, she was not having any urinary incontinence. Urodynamics on 04/13/23 demonstrated bladder capacity 950 mL with good compliance and no significant DO or stress incontinence. I talked to Laina briefly (not an official visit as she was out of [place]) on 08/26/2023: Laina is accompanied by her casework specialist/guardian, Tanisha Marlow, of [place], as well as her school nurse, Sarika. Sraika noted a few weeks ago that Laina was having large volume incontinence at school with minimal output with straight catheterization. She was diagnosed and treated for a UTI and then went on Spring Break to [place]. Today, Laina reports that she is no longer experiencing incontinence. Last visit with me on 09/05/2023: I am meeting again with Laina, Tanisha Marlow (legal guardian / casework specialist), and Sarika (school nurse) to discuss ongoing issues with urinary incontinence. Incontinence is a new problem starting 3-4 weeks ago. She was completely dry prior to that. She is supposed to be on a 5 times per day CIC regimen, but there is some concern that her home caths are not always happening. Her schedule is normally as follows: 6AM - wake up and catheterized by cousin / mix technician, Alecia. 8:30-9AM - catheterized by school nurse 12:05 PM - brief check by school nurse 2PM - catheterized by school nurse 3:15PM - home 4-4:30PM - catheterized by OILER HELPER 8:30PM - catheterized by mix technician, then bed She sleeps throughout the night without waking to cath. Brief is sometimes wet in the mornings. She is supposed to be having her bladder irrigated once daily in the morning. Laina states that this is happening, but unsure on details. Tanisha will follow up to clarify. While on Spring Break recently, Laina reports that she was only catheterized 1-2 times per day. Now that she is home, she states that she is back on her 5 times per day schedule. School nurse, Sarika, reports that Laina continues to have intermittent wet briefs with minimal outputs with catheterization. Last week, her urine was dark, maldorous, with a lot of sediment. However, she was recovering from a diarrheal illness and likely dehydrated. Today, the urine appears moreclear. No fevers, chills, or gross hematuria. The diarrhea has resolved. Laina saw her PCP a few days ago. Tanisha reports that her doctor noted incontinence during a pelvic exam. Sarika also reports some yellowish discharge in the last few days - unsure if coming from urethra or vagina. Laina's PCP ordered a UA but it was not processed. TODAY 10/15/2023: Angelina is accompanied by her guardian, Tanisha. Plan was to repeat urodynamics given the sudden onsetof incontinence. However, there have been some changes since last visit. Laina's cousin/mix technician is no longer living with her. As a result, her nursing agency is doing all of her catheterizing. She is now being catheterized reliably 5 times per day. Since making this change, her incontinence has resolved. Both her school nurse and home health nurse report that she is dry. Her urine is clear with good outputs with each catheterization. Laina feels well with no complaints today. PEx GENERAL: alert and no distress, resting comfortably in a motorized wheelchair EYES: Eyes grossly normal to inspection. No discharge or erythema, or obvious scleral/conjunctival abnormalities. RESP: No audible wheeze, cough, or visible cyanosis. SKIN: Visible skin clear. No significant rash, abnormal pigmentation or lesions. NEURO: Cranial nerves grossly intact. Mentation and speech appropriate for age. PSYCH: Appropriate affect, tone, and pace of words LAB: Creatinine Date Value Ref Range Status 2023 0.51 0.51 - 0.95 mg/dL Final 02/12/2020 0.43 (L) 0.50 - 1.00 mg/dL Final Lab Results Component Value Date CULTURE 50,000-100,000 CFU/mL Gram positive cocci 09/08/2023 CULTURE 50,000-100,000 CFU/mL Gram positive cocci 09/08/2023 CULTURE 50,000-100,000 CFU/mL Gram positive cocci 09/08/2023 CULTURE 09/08/2023 <10,000 CFU/mL Non lactose fermenting gram negative bacilli CULTURE >100,000 CFU/mL Streptococcus constellatus 08/13/2023 CULTURE 50,000-100,000 CFU/mL Enterococcus faecalis 08/13/2023 IMAGING: US RENAL COMPLETE NON-VASCULAR 2023 FINDINGS: The kidneys are suboptimally visualized due to horseshoe configuration and bowel gas. No hydronephrosis on either side. Possible nonobstructing left renal calculi. BLADDER: Decompressed. IMPRESSION: 1. No hydronephrosis. ABDOMEN ONE VIEW 2023 IMPRESSION: Unremarkable bowel gas pattern. Previously seen stents are no longer demonstrated. No definite urolithiasis demonstrated currently. CT ABDOMEN PELVIS W/O CONTRAST, 04/01/2023 FINDINGS: Lower thorax: Patchy basilar atelectasis. No focal consolidations. Small calcified granuloma in left base. Liver: No mass within the limitations of non-contrast technique. No intrahepatic biliary ductal dilation. Biliary System: Gallbladder sludge. No gallbladder wall thickening. No extrahepatic biliary ductal dilation. Pancreas: No pancreatic ductal dilation. Adrenal glands: No mass or nodules Spleen: Normal. Kidneys: Horseshoe kidneys. Interval placement of bilateral nephroureteral stents with reduction in stone burden, largest stone in the right kidney measures up to 1 cm in lower pole and up to 0.7 cm in the left lower pole. There are blood products in right renal collecting system and likely in the renal cortex without significant hydronephrosis. Gastrointestinal tract: Normal appendix. Normal caliber small and large bowel. Moderate gaseous distention of the transverse colon with mild stool burden. Mesentery/peritoneum/retroperitoneum: New small amount of air and layering blood products in the right retroperitoneum with extension into the pelvis, maximum thickness of about 1.4 cm. Trace blood products noted in left perinephric space. REHABILITATION CASEWORKER shunt coiled in the dependant pelvis. Lymph nodes: Stable mildly enlarged right common iliac, retroperitoneal and inguinal nodes are presumably reactive. Vasculature: Normal calibre aorta. Pelvis: Urinary bladder is decompressed by Fernandez with antidependant air. Extensive stranding and small amount of fluid around the bladder. Osseous structures: Postsurgical changes of the lumbosacral spine. Chronic appearing deformity of the left femur. Soft tissues: Dystrophic calcifications and chronic fat necrosis in the left subcutaneous gluteal region. IMPRESSION: 1. Interval placement of bilateral nephroureteral stents with reduction in stone burden within the horseshoe kidney. Small amount of blood products noted in the right renal collecting system without significant hydronephrosis. 2. New small amount of air and layering blood products in the right peripheric space/retroperitoneum and extending into the pelvis. No associated significant mass effects. Trace blood products noted in the left perinephric space. 3. Moderate gaseous distention of the transverse colon, likely due to ileus. Mild colonic stool burden. ASSESSMENT/PLAN: 23 year old female with neurogenic bladder secondary to spina bifida, managed with CIC per urethra 4-5x / day, as well as a horseshoe kidney with history of recurrent staghorn calculi (followed by Dr. Joyner). UDS in 03/2023 showed capacity of 950 mL with no significant DO or incontinence and good compliance. Over the last several months, Laina experienced worsening urinary incontinence which turned out to be a result of not being catheterized by her prior mix technician/family member. This family member has now left and Laina is being catheterized regularly by her nursing agency and her incontinence has resolved. Neither home health nurse nor school nurse have any concerns to report at this time. As a result, plan to defer urodynamics today. -They will continue with CIC 5 times per day on school days, 4 times per day on weekends and in thesummer. However, if she starts to have UTIs or incontinence, will increase CIC to 5 times per day. [Pt requires intermittent catheterization for 3 months or greater (lifetime) due to chronic urinary retention.] -Continue once daily bladder irrigation. -Follow up with Dr. Joyner as planned for stone surveillance. -Follow up with Elissa Martinez CNP in 1 year for annual neurogenic bladder surveillance. Lakshmi Wilhelm PA-C Department of Urology 20 minutes spent on the date of the encounter doing chart review, review of test results, patient visit, documentation, and discussion with family documented in this encounter Plan of Treatment Upcoming Encounters Date Type Department Care Team (Late st Contact Info) Description 11/26/2023 PRE VISIT [facility] [address] [phone] Alissa Perez PA-C [address] [place] [address] Previsit 12/08/2023 9:30 AM CDT Office Visit [facility] [address] [phone] [place] [address] [place], [place] [phone] Alissa Perez PA-C [address] [place] [address] documented as of this encounter Visit Diagnoses Diagnosis Neurogenic bladder- Primary Neurogenic bladder, NOS documented in this encounter Care Teams Numberer And Wirer Relationship Specialty [place] [address] [place] [address] PCP - General 03/05/23 Carlos Joyner MD [address] [place] [address] Urology 12/09/19 Jadon Murray MD [facility] [address] [facility] [address] [place], [place] [id number] Referring Physician Pediatric Surgery 12/09/19 Maru Villagomez, RN Registered Nurse 12/10/19 Ang Slade MD [address] [place] [address] Urology 04/24/20 Carlos Joyner MD [address] [place] [address] [id number] Assigned Surgical Provider 12/24/20 Ang Slade MD [address] [place] [address] Urology 12/18/22 Lakshmi Wilhelm PA-C [address] [place] [address] [phone] Physician Negotiations Director Urology 02/03/23 [place] [address] [place] [address] Assigned PCP 02/06/23 Alissa Perez PA-C [address] [place] [address] Physician Negotiations Director Surgery 09/04/23 Lakshmi Wilhelm PA-C [address] [place] [address] Physician Negotiations Director Urology 09/16/23 documented as of this encounter
--- OUTSIDE RECORDS SUMMARY | 2023-10-31 20:46 | XMS_ITS | Encounter Summary ---
Author Organization [place] Address [address] [place] [address] Care Team Providers Care Technical Administrative Assistant Name Role Phone Carlos Joyner MD Unavailable [phone] Jadon Murray MD Unavailable [phone] Maru Villagomez RN Unavailable Unavailable Ang Slade MD Unavailable [phone] Carlos Joyner MD Unavailable [phone] Ang Slade MD Unavailable [phone] Lakshmi Wilhelm-C Unavailable [phone] Heladio Willoughby MD Primary Care Provider [phone] Heladio Willoughby MD Unavailable Alissa Perez PA-C Unavailable [phone] Lakshmi Wilhelm-C Unavailable [phone] Encounter Details Date Type Department Care Team (Latest Contact Info) Description 10/15/2023 Travel Social History Tobacco Use Types Packs/Day Years Used Date Smoking Tobacco: Never Smokeless Tobacco: Never Alcohol Use Standard Drinks/Week Comments Not Currently [...] on file documented as of this encounter Plan of Treatment Upcoming Encounters Date Type Department Care Team (Late st Contact Info) Description 11/26/2023 PRE VISIT [facility] [address] [phone] Alissa Perez PA-C [address] [place] [address] Previsit 12/08/2023 9:30 AM CDT Office Visit [facility] [address] [phone] [place] [address] [place] [address] Alissa Perez PA-C [address] [place], [place] 404405 documented as of this encounter Visit Diagnoses Not on filedocumented in this encounter Care Teams Technical Administrative Assistant Relationship Specialty Start [place] [address] [place] [address] PCP - General 03/05/23 Carlos Joyner MD [address] [place] [address] [id number] Urology 12/09/19 Jadon Murray MD [facility] [address] [facility] [address] [place] [address] Referring Physician Pediatric Surgery 12/09/19 Maru Villagomez, RN Registered Nurse 12/10/19 Ang Slade MD [address] [facility] [address] [place], [place] 899[address] Urology 04/24/20 Carlos Joyner MD [address] [place] [address] [id number] Assigned Surgical Provider 12/24/20 Ang Slade MD [address] [facility] [address] [place], [place] [address] Urology 12/18/22 Lakshmi Wilhelm PA-C [address] [place] [address] [phone] Physician Decision Support Manager Urology 02/03/23 [place] [address] [facility] [place] [address] Assigned PCP 02/06/23 Alissa Perez PA-C [address] [place] [address] [phone] Physician Decision Support Manager Surgery 09/04/23 Lakshmi Wilhelm PA-C [address] [place] [address] Physician Decision Support Manager Urology 09/16/23 documented as of this encounter
--- OUTSIDE RECORDS SUMMARY | 2023-10-31 20:46 | XMS_ITS | Encounter Summary ---
Author Organization [place] Address [address] [place] [address] Care Team Providers Care Fish Cake Maker Name Role Phone Carlos Joyner MD Unavailable [phone] Jadon Murray MD Unavailable [phone] Maru Villagomez RN Unavailable Unavailable Ang Slade MD Unavailable [phone] Carlos Joyner MD Unavailable [phone] Ang Slade MD Unavailable [phone] Lakshmi Wilhelm-C Unavailable [phone] Heladio Willoughby MD Primary Care Provider [phone] Heladio Willoughby MD Unavailable Alissa Perez PA-C Unavailable [phone] LaLakshmi morales-C Unavailable [phone] Encounter Details Date Type Department Care Team (Late st Contact Info) Description 09/14/2023 Orders Only M [facility] [address] 4th [place] [address] Amari Mcconnell RN Urinary incontinence, unspecified type (Primary Dx) Social History Tobacco Use Types Packs/Day Years [...] on file documented as of this encounter Progress Notes * Amari Mcconnell RN - 09/14/2023 8:28 PM CDT Edited orders to be under Lakshmi Wilhlem PA-C to align with recent notes. OTILIO Becker Physicist [facility] [phone] documented in this encounter Nursing Notes * Amari Mcconnell RN - 09/14/2023 8:28 PM CDT Faxed order to [facility] [phone] OTILIO Becker Physicist [facility] [phone] documented in this encounter Miscellaneous Notes * Addendum Note - Amari Mcconnell RN - 09/14/2023 8:28 PM CDTAddended by: AMAIR MCCONNELL on: 09/18/2023 08:12 AM Modules accepted: Orders documented in this encounter Plan of Treatment Upcoming Encounters Date Type Department Care Team (Late st Contact Info) Description 11/26/2023 PRE VISIT [facility] [address] [phone] Alissa Perez PA-C [address] [place] [address] 706395 Previsit 12/08/2023 9:30 AM CDT Office Visit [facility] Colon and Rectal Surgery [address] [phone] [place] [address] [place], [place] [phone] Alissa Perez PA-C [address] [place] [address] [phone] documented as of this encounter Visit Diagnoses Diagnosis Urinary incontinence, unspecified type- Primary documented in this encounter Care Teams Fish Cake Maker Relationship Specialty Start [place] [address] [place] [address] PCP - General 03/05/23 Carlos Joyner MD [address] [place] [address] Urology 12/09/19 Jadon Murray MD [facility] [address] [address] Referring Physician Pediatric Surgery 12/09/19 Maru Villagomez, RN Registered Nurse 12/10/19 Ang Slade MD [address] 530865 Urology 04/24/20 Carlos Joyner MD [address] [place] [address]19 Assigned Surgical Provider 12/24/20 Ang Slade MD [address] 233695 Urology 12/18/22 Lakshmi Wilhelm PA-C [address] [place] [address] 304555 Physician Shuttle Fixer Urology 02/03/23 [place] [address] [place] [address] Assigned PCP 02/06/23 Alissa Perez PA-C [address] [place] [address] [id number] Physician Shuttle Fixer Surgery 09/04/23 Lakshmi Wilhelm PA-C [address] [place] [address] 246565 Physician Shuttle Fixer Urology 09/16/23 documented as of this encounter
--- OUTSIDE RECORDS SUMMARY | 2023-10-31 20:46 | XMS_ITS | Encounter Summary ---
Author Organization [place] Address [address] [place] [address] Care Team Providers Care Claims Adjuster Supervisor Name Role Phone Carlos Joyner MD Unavailable [phone] Jadon Murray MD Unavailable [phone] Maru Villagomez RN Unavailable Unavailable Ang Slade MD Unavailable [phone] Carlos Joyner MD Unavailable [phone] Ang Slade MD Unavailable [phone] Lakshmi Wilhelm-C Unavailable Heladio Willoughby MD Primary Care Provider [phone] Heladio Willoughby MD Unavailable Alissa Perez PA-C Unavailable [phone] LaLakshmi morales-C Unavailable Reason for Referral * Diagnostic Imaging Ultrasound (Routine) - Pending Review Specialty Diagnoses / Procedures Referred By Charli sylvester Referred To Contact Radiology. Diagnoses Kidney stone Procedures US Renal Complete Non-Vascular Carlos Joyner MD [address] [place] [address] Referral ID Status Reason Start Date Expiration Date V isits Requested Visits Authorized [id number] Pending Review 06/24/2023 06/23/2024 1 1 Reason for Visit * Diagnostic Imaging Ultrasound (Routine) - Pending Review Specialty Diagnoses / Procedures Referred By Charli sylvester Referred To Contact Radiology. Diagnoses Kidney stone Procedures US Renal Complete Non-Vascular Carlos Joyner MD [address] [place] [address] Referral ID Status Reason Start Date Expiration Date V isits Requested Visits Authorized [id number] Pending Review 06/24/2023 06/23/2024 1 1 Encounter Details Date Type Department Care Team (Latest Contact Info) Description 2023 8:15 AM CDT Hospital Encounter [facility] [address] [place] [address] [place] [address] Carlos Joyner MD [address] [place], [place] [phone] Kidney stone Discharge Disposition: Home or Self Care Social History Tobacco Use Types Packs/Day Years [...] on file documented as of this encounter Medications at Time of Discharge Medication Sig Dispensed Refills Start Date End Date acetaminophen (TYLENOL) 325 MG tablet Take 325-650 mg by mouth every 6 hours as needed for mild pain B-D SYRINGE LUER-OLGA 30 ML MISC USE TO FLUSH BLADDER 11/09/2019 bisacodyl (DULCOLAX) 5 MG EC tablet 0 Refill(s), Maintenance 03/13/2021 docusate sodium (COLACE) 100 MG capsule Take 100 mg by mouth every evening Elastic Bandages & Supports (PATEL ELASTIC BANDAGE 4) MISC Apply 1 each topically 11/09/2018 indapamide (LOZOL) 1.25 MG tabletIndications:Hype rcalciuria Take 1 tablet (1.25 mg) by mouth every morning 90 tablet 3 06/17/2023 MONOJECT HYPODERMIC NEEDLE 18G X 1 MISC USE TO FLUSH BLADDER 11/09/2019 Multiple Vitamin (MULTI-VITAMINS) TABS Take 1 tablet by mouth every evening NEW MEDIndications:DUPICAT E 480mg Gentamicin in one liter of Normal Saline. Instill 30 ml of gentamicin solution into bladder at bedtime 930 mL 11 08/09/2020 NEW MEDIndications:Recurre nt UTI 480 MG Gentamicin in 1 Liter 0.9 Normal Saline. Instill 60 mL of Gentamicin solution into bladder at HS 1800 mL 11 03/15/2020 oxyBUTYnin (DITROPAN) 5 MG tabletIndications:Blad loan spasms TAKE ONE TABLET BY MOUTH TWICE DAILY 180 tablet 07/18/2023 polyethylene glycol (MIRALAX) 17 GM/Dose powder See Instructions, 1-3 tsp as needed to maintain soft stools, # 527 g, 1 Refill(s), Maintenance, other 03/13/2021 potassium chloride ER (K-TAB) 20 MEQ CR tabletIndications:Hype rcalciuria Take 1 tablet (20 mEq) by mouth daily 90 tablet 3 06/17/2023 potassium chloride ER (KLOR-CON M) 10 MEQ CR tabletIndications:Hype rcalciuria Take 1 tablet (10 mEq) by mouth 2 times daily 90 tablet 3 06/23/2023 sodium chloride 0.9%, bottle, 0.9 % irrigation Irrigate with 60 mLs as directed 2 times daily Instill 60 ml into bladder along with Gentamicin solution sulfamethoxazole-trime thoprim (BACTRIM DS) 800-160 MG tabletIndications:Recu rrent UTI Take 1 tablet by mouth 2 times daily 14 tablet 08/14/2023 Wound Dressings (MEDIHONEY CA ALGINATE 2X2) PADSIndications:Pressu re ulcer acquired in [facility] Externally apply 1 each topically daily 10 each 04/16/2023 documented as of this encounter Plan of Treatment Upcoming Encounters Date Type Department Care Team (Late st Contact Info) Description 11/26/2023 PRE VISIT [facility] Surgery Clinic [address] [phone] Alissa Perez PA-C [address] [place] [address] [phone] Previsit 12/08/2023 9:30 AM CDT Office Visit [facility] [address] [phone] [place] [address] [place] [address] Alissa Perez PA-C [address] [place], [place] 790395 documented as of this encounter Procedures Procedure Name Priority Date/Time Associated Diagnosis Comments US RENAL COMPLETE NON-VASCULAR Routine 2023 9:45 AM CDT Kidney stone documented in this encounter Results * US Renal Complete Non-Vascular (2023 9:45 AM CDT) Anatomical Region Laterality Modality Abdomen/Pelvis Ultrasound Impressions 2023 1:57 PM CDT IMPRESSION: 1. ??No hydronephrosis. SARANYA JIMENEZ MD SYSTEM ID: ??[id number] Narrative 2023 1:57 PM CDT US RENAL COMPLETE NON-VASCULAR 2023 9:45 AM CLINICAL HISTORY: Kidney stone TECHNIQUE: Routine Bilateral Renal and Bladder Ultrasound. COMPARISON: CT 04/01/2023 FINDINGS: The kidneys are suboptimally visualized due to horseshoe configuration and bowel gas. No hydronephrosis on either side. Possible nonobstructing left renal calculi. BLADDER: Decompressed. Procedure Note Saranya Jimenez MD - 2023 US RENAL COMPLETE NON-VASCULAR 2023 9:45 AM CLINICAL HISTORY: Kidney stone TECHNIQUE: Routine Bilateral Renal and Bladder Ultrasound. COMPARISON: CT 04/01/2023 FINDINGS: The kidneys are suboptimally visualized due to horseshoe configuration and bowel gas. No hydronephrosis on either side. Possible nonobstructing left renal calculi. BLADDER: Decompressed. IMPRESSION: 1. No hydronephrosis. SARANYA JIMENEZ MD SYSTEM ID: [id number] Carlos Joyner MD IMG US ORDERABLES documented in this encounter Visit Diagnoses Diagnosis Kidney stone Calculus of kidney documented in this encounter Care Teams Claims Adjuster Supervisor Relationship Specialty Start [place] [address] [place] [address] PCP - General 03/05/23 Carlos Joyner MD [address] [place], [place] 366235 Urology 12/09/19 Jadon Murray MD [facility] 2530 [facility] [address] [place] [address] Referring Physician Pediatric Surgery 12/09/19 Maru Villagomez, RN Registered Nurse 12/10/19 Ang Slade MD [address] [place] [address] [address] [place], [place] 958625 Urology 04/24/20 Carlos Joyner MD [address] [place] [address] 150215 Assigned Surgical Provider 12/24/20 Ang Slade MD [address] [place] [address] [id number] Urology 12/18/22 aLkshmi Wilhelm PA-C [address] [place] [address] 549685 Physician Dean Of Girls Urology 02/03/23 [place] [address] [place] [address] Assigned PCP 02/06/23 Alissa Perez PA-C [address] [place] [address] 138975 Physician [employer] Surgery 09/04/23 Lakshmi Wilhelm PA-C [address] [place] [address] 995855 Physician [employer] Urology 09/16/23 documented as of this encounter
--- OUTSIDE RECORDS SUMMARY | 2023-10-31 20:46 | XMS_ITS | Encounter Summary ---
Author Organization [place] Address [address] [place] [address] Care Team Providers Care National Sales Consultant Name Role Phone Carlos Joyner MD Unavailable [phone] Jadon Murray MD Unavailable [phone] Maru Villagomez RN Unavailable Unavailable Ang Slade MD Unavailable [phone] Carlos Joyner MD Unavailable [phone] Ang Slade MD Unavailable [phone] Lakshmi Wilhelm-C Unavailable Heladio Willoughby MD Primary Care Provider [phone] Heladio Willoughby MD Unavailable Alissa Perez PA-C Unavailable [phone] LaLakshmi morales-C Unavailable [phone] Reason for Referral * Diagnostic Imaging CT Scan (Routine) - Authorized Specialty Diagnoses / Procedures Referred By Contac t Referred To Contact Radiology. Diagnoses Kidney stone Procedures CT Abdomen Pelvis w/o Contrast Carlos Joyner MD [address] [place] [address] Referral ID Status Reason Start Date Expiration Date V isits Requested Visits Authorized [id number] Authorized 09/23/2023 09/22/2024 1 1 Reason for Visit * Reason Comments RECHECK 3 month follow up Encounter Details Date Type Department Care Team ([facility] st Contact Info) Description 09/23/2023 8:00 AM CDT Virtual Visit [facility] Urology Clinic [address] [place] [address] Carlos Joyner MD [address] [place] [address] Kidney stone (Primary Dx) Social History Tobacco Use Types [...] as of this encounter Progress Notes * Carlos Joyner MD - 09/23/2023 8:00 AM CDT UROLOGY OUTPATIENT VISIT Chief Complaint: Kidney Stones Synopsis Laina Escudero is a very pleasant AGE: [age] year old year old person 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 We performed multiple percutaneous stone removal is unclear. Now here for stone prevention visit Taking Indapamide Occasionally leaks overnight, has urodynamic appointment next month No stone or UTI type symptoms Renal ultrasound is personally reviewed there is no hydronephrosis on the limited examination KUB is personally reviewed there is no evidence of radiopaque stone Medications Current Outpatient Medications Medication Sig Dispense Refill acetaminophen (TYLENOL) 325 MG tablet Take 325-650 mg by mouth every 6 hours as needed for mild pain B-D SYRINGE LUER-OLGA 30 ML MISC USE TO FLUSH BLADDER bisacodyl (DULCOLAX) 5 MG EC tablet 0 Refill(s), Maintenance docusate sodium (COLACE) 100 MG capsule Take 100 mg by mouth every evening Elastic Bandages & Supports (PATEL ELASTIC BANDAGE 4) MISC Apply 1 each topically indapamide (LOZOL) 1.25 MG tablet Take 1 tablet (1.25 mg) by mouth every morning 90 tablet 3 MONOJECT HYPODERMIC NEEDLE 18G X 1 MISC USE TO FLUSH BLADDER Multiple Vitamin (MULTI-VITAMINS) TABS Take 1 tablet by mouth every evening NEW MED 480mg Gentamicin in one liter of Normal Saline. Instill 30 ml of gentamicin solution into bladder at bedtime 930 mL 11 NEW MED 480 MG Gentamicin in 1 Liter 0.9 Normal Saline. Instill 60 mL of Gentamicin solution into bladder at HS (Patient taking differently: every evening 480 MG Gentamicin in 1 Liter 0.9 Normal Saline. Instill 60 mL of Gentamicin solution into bladder at HS) 1800 mL 11 oxyBUTYnin (DITROPAN) 5 MG tablet TAKE ONE TABLET BY MOUTH TWICE DAILY 180 tablet 0 polyethylene glycol (MIRALAX) 17 GM/Dose powder See Instructions, 1-3 tsp as needed to maintain soft stools, # 527 g, 1 Refill(s), Maintenance, other potassium chloride ER (K-TAB) 20 MEQ CR tablet Take 1 tablet (20 mEq) by mouth daily 90 tablet 3 potassium chloride ER (KLOR-CON M) 10 MEQ CR tablet Take 1 tablet (10 mEq) by mouth 2 times daily 90 tablet 3 Saline Bacteriostatic (SODIUM CHLORIDE BACTERIOSTATIC) 0.9 % SOLN flush Irrigate with 30 mLs as directed At Bedtime for 31 doses 930 mL 11 sodium chloride 0.9%, bottle, 0.9 % irrigation Irrigate with 60 mLs as directed 2 times daily Instill 60 ml into bladder along with Gentamicin solution (Patient not taking: Reported on 08/26/2023) sulfamethoxazole-trimethoprim (BACTRIM DS) 800-160 MG tablet Take 1 tablet by mouth 2 times daily (Patient not taking: Reported on 09/05/2023) 14 tablet 0 Wound Dressings (MEDIHONEY CA ALGINATE 2X2) PADS Externally apply 1 each topically daily 10 each 0 Current Facility-Administered Medications Medication Dose Route Frequency Provider Last Rate Last Admin medroxyPROGESTERone (DEPO-PROVERA) injection 150 mg 150 mg Intramuscular Q90 Days Heladio Willoughby MD150 mg at 09/02/23 1219 The following distinct labs were reviewed I personally reviewed all applicable laboratory data and went over findings with patient Significant for: CBC RESULTS: Recent Labs Lab Test 04/04/23 0657 04/04/23 0023 04/02/23 0719 04/01/23 0814 WBC 6.9 8.7 10.5 13.0* HGB 9.8* 10.3* 10.6* 13.3 PLT 190 184 163 184 BMP RESULTS: Recent Labs Lab Test 09/16/23 0945 06/23/23 0830 04/04/23 0657 04/04/23 0023 11/12/21 1342 02/12/20 0539 02/11/20 0544 02/10/20 0530 02/09/20 0555 NA 139 142 142 140 < > 139 140 141 142 POTASSIUM 4.1 5.4* 3.4 3.2* < > 3.6 3.4 3.7 3.6 CHLORIDE 106 112* 113* 112* < > 109 112* 115* 117* CO2 23 18* 20* 19* < > 21 18* 18* 17* ANIONGAP 10 12 9 9 < > 9 10 8 8 GLC 95 82 74 92 < > 86 94 97 58* BUN 10.9 17.2 6.5 7.0 < > 11 12 8 9 CR 0.51 0.52 0.48* 0.48* < > 0.43* 0.49* 0.47* 0.43* GFRESTIMATED >90 >90 >90 >90 < > GFR not calculated, patient <18 years old. GFR not calculated, patient <18 years old. GFR not calculated, patient <18 years old. GFR not calculated, patient <18 years old. GFRESTBLACK -- -- -- -- -- GFR not calculated, patient <18 years old. GFR not calculated, patient <18 years old. GFR not calculated, patient <18 years old. GFR not calculated, patient <18years old. < > = values in this interval not displayed. CALCIUM RESULTS: Recent Labs Lab Test 09/16/23 0945 06/23/23 0830 04/04/23 0657 04/04/23 0023 SHIRA 9.5 9.4 8.2* 7.8* PTH RESULTS: No results for input(s): PTHI in the last 49284 hours. HGB A1C RESULTS: No results found for: A1C UA RESULTS: Recent Labs Lab Test 09/08/23 0930 08/13/23 0954 03/20/23 1155 11/01/21 1419 SG 1.020 1.025 1.020 1.020 URINEPH 6.0 6.0 6.0 7.5* NITRITE Positive* Positive* Positive* Positive* RBCU 2-5* 0-2 -- 10-25* WBCU 50-100* 25-50* -- 50-100* Recent Imaging Report I personally reviewed all applicable imaging and went over the below findings with patient. Results for orders placed or performed during the hospital encounter of 09/16/23 XR KUB Narrative ABDOMEN ONE VIEW 2023 8:47 AM HISTORY: Kidney stone. COMPARISON: February 08, 2020. Impression IMPRESSION: Unremarkable bowel gas pattern. Previously seen stents are no longer demonstrated. No definite urolithiasis demonstrated currently. BAY GROSS MD Assessment/Plan 23 year old year old person with history of horseshoe kidney and recurrent stones -Follow-up with me in [address] scan CC: Heladio Willoughby Virtual Visit Details Type of service: Video Visit Video Start Time: 8:00 Video End Time:8:17 AM Originating Location (pt. Location): Home Distant Location (provider location): Off-site Platform used for Video Visit: Joanna documented in this encounter Nursing Notes * Ignacia Simpson - 09/23/2023 8:00 AM CDT Check-in/rooming completed with staff, pt is joining video. Is the patient currently in the state of [place]? YES Visit mode:VIDEO If the visit is dropped, the patient can be reconnected by: VIDEO VISIT: Text to cell phone: Telephone Information: Mobile Not on file. and VIDEO VISIT: Send to e-mail at: [email or web address] Will anyone else be joining the visit? NO (If patient encounters technical issues they should call [phone] :[phone]) How would you like to obtain your AVS? MyChart Are changes needed to the allergy or medication list? No Are refills needed on medications prescribed by this physician? NO Reason for visit: RECHECK (3 month follow up) Ignacia Simpson VVBismark documented in this encounter Plan of Treatment Upcoming Encounters Date Type Department Care Team (Late st Contact Info) Description 11/26/2023 PRE VISIT [facility]al Surgery [facility] [address] [phone] Alissa Perez PA-C [address] [place] [address] [phone] Previsit 12/08/2023 9:30 AM CDT Office Visit [facility] [address] [phone] [place] [address] [place] [address] Alissa Perez PA-C [address] [place] [address] [phone] Scheduled Orders Name Type Priority Associated Diagnoses Orde r Schedule CT Abdomen Pelvis w/o Contrast Imaging Routine Kidney stone Expected: 03/24/2024 (Approximate), Expires: 09/22/2024 documented as of this encounter Visit Diagnoses Diagnosis Kidney stone- Primary Calculus of kidney documented in this encounter Care Teams National Sales Consultant Relationship Specialty Start [place] [address] [place], [place] [phone] PCP - General 03/05/23 Carlos Joyner MD [address] [place] [address] [phone] Urology 12/09/19 Jadon Murray MD [facility] [address] [id number] Referring Physician Pediatric Surgery 12/09/19 Maru Villagomez, OTILIO Registered Nurse 12/10/19 Ang Slade MD [address] [place] [address] Urology 04/24/20 Carlos Joyner MD [address] [place] [address] 057095 Assigned Surgical Provider 12/24/20 Ang Slade MD [address] [place] [address] Urology 12/18/22 Lakshmi Wilhelm PA-C [address] [place] [address] 126855 Physician Professor Of Literacy Urology 02/03/23 [place] [address] [place] [address] Assigned PCP 02/06/23 Alissa Perez PA-C [address] [place] [address] 055495 Physician Professor Of Literacy Surgery 09/04/23 Lakshmi Wilhelm PA-C [address] [place] [address] 154535 Physician Professor Of Literacy Urology 09/16/23 documented as of this encounter
--- OUTSIDE RECORDS SUMMARY | 2023-10-31 20:46 | XMS_ITS | Encounter Summary ---
Author Organization [place] Address [address] [place] [address]663 Care Team Providers Care Carnallite Plant Operator Name Role Phone Carlos Joyner MD Unavailable [phone] Jadon Murray MD Unavailable [phone] Maru Villagomez RN Unavailable Unavailable Ang Slade MD Unavailable [phone] Carlos Joyner MD Unavailable [phone] Ang Slade MD Unavailable [phone] Lakshmi Wilhelm-C Unavailable [phone] Heladio Willoughby MD Primary Care Provider [phone] Heladio Willoughby MD Unavailable Alissa Perez PA-C Unavailable [phone] LaLakshmi morales-C Unavailable [phone] Encounter Details Date Type Department Care Team (Late st Contact Info) Description 09/18/2023 [facility] Medical Advice [facility] Urology Clinic [address] [place] [address] Carlos Joyner MD [address] [place] [address] Social History Tobacco Use Types Packs/Day Years [...] st Contact Info) Description 11/26/2023 PRE VISIT [facility] Surgery Clinic [address] [phone] Alissa Perez PA-C [address] [place], [place] 309285 Previsit 12/08/2023 9:30 AM CDT Office Visit [facility] [address] [address] [place] [address] [facility] [place] [address] Alissa Perez PA-C [address] [place] [address] 233185 documented as of this encounter Visit Diagnoses Not on filedocumented in this encounter Care Teams Carnallite Plant Operator Relationship Specialty Start [place] [address] [place] [address] PCP - General 03/05/23 Carlos Joyner MD [address] [place] [address] Urology 12/09/19 Jadon Murray MD [facility] [address] [id number] Referring Physician Pediatric Surgery 12/09/19 Maru Villagomez, RN Registered Nurse 12/10/19 Ang Slade MD [address] [place] [address] Urology 04/24/20 Carlos Joyner MD [address] [place] [address] Assigned Surgical Provider 12/24/20 Ang Slade MD [address] [place] [address] 937025 Urology 12/18/22 Lakshmi Wilhelm PA-C [address] [place] [address] 896285 Physician Zyglo Inspector Urology 02/03/23 [place] [address] [place] [address] Assigned PCP 02/06/23 Alissa Perez PA-C [address] [place] [address] Physician Zyglo Inspector Surgery 09/04/23 Lakshmi Wilhelm PA-C [address] [place] [address] [phone] Physician Zyglo Inspector Urology 09/16/23 documented as of this encounter
--- OUTSIDE RECORDS SUMMARY | 2023-10-31 20:46 | XMS_ITS | Encounter Summary ---
Author Organization [place] Address [address] [place] [address] Care Team Providers Care Oral Surgery Technician Name Role Phone Carlos Joyner MD Unavailable [phone] Jadon Murray MD Unavailable [phone] Maru Villagomez RN Unavailable Unavailable Ang Slade MD Unavailable [phone] Carlos Joyner MD Unavailable [phone] Ang Slade MD Unavailable [phone] Lakshmi Wilhelm-C Unavailable Heladio Willoughby MD Primary Care Provider [phone] Heladio Willoughby MD Unavailable Alissa Perez PA-C Unavailable [phone] LaLakshmi morales-C Unavailable [phone] Encounter Details Date Type Department Care Team (Late st Contact Info) Description 09/24/2023 Orders Only [facility] Services - Surgical Specialties Service Line [address] [place] [address] Carlos Joyner MD [address] [place] [address] Social History Tobacco Use Types Packs/Day [...] st Contact Info) Description 11/26/2023 PRE VISIT [facility] [address] [address] Alissa Perez PA-C [address] [place], [place] 501225 Previsit 12/08/2023 9:30 AM CDT Office Visit [facility] [address] [phone] [place] [address] [facility] [place], [place] 1714068 Alissa Perez PA-C [address] [place] [address] 961745 documented as of this encounter Visit Diagnoses Not on filedocumented in this encounter Care Teams Oral Surgery Technician Relationship Specialty [place] [address] [place] [address] PCP - General 03/05/23 Carlos Joyner MD [address] [place] [address] 046065 Urology 12/09/19 Jadon Murray MD [facility] [address] [id number] Referring Physician Pediatric Surgery 12/09/19 Maru Villagomez, RN Registered Nurse 12/10/19 Ang Slade MD [address] [place] [address] 957965 Urology 04/24/20 Carlos Joyner MD [address] [place] [address] 612095 Assigned Surgical Provider 12/24/20 Ang Slade MD [address] [place] [address] 002175 Urology 12/18/22 Lakshmi Wilhelm PA-C [address] [place] [address] 551135 Physician Certified Home Health Aide Urology 02/03/23 [place] [address] [place] [address] Assigned PCP 02/06/23 Alissa Perez PA-C [address] [place] [address] Physician Certified Home Health Aide Surgery 09/04/23 Lakshmi Wilhelm PA-C [address] [place] [address] Physician Certified Home Health Aide Urology 09/16/23 documented as of this encounter
--- OUTSIDE RECORDS SUMMARY | 2023-10-31 20:46 | XMS_ITS | Encounter Summary ---
Author Organization [place] Address [address] [place] [address]. [place] [address] Care Team Providers Care Block Saw Operator Name Role Phone Carlos Joyner MD Unavailable [phone] Jadon Murray MD Unavailable [phone] Maru Villagomez RN Unavailable Unavailable Ang Slade MD Unavailable [phone] Carlos Joyner MD Unavailable [phone] Ang Slade MD Unavailable [phone] Lakshmi Wilhelm-C Unavailable [phone] Heladio Willoughby MD Primary Care Provider [phone] Heladio Willoughby MD Unavailable Alissa Perez PA-C Unavailable [phone] LaLakshmi morales-C Unavailable [phone] Reason for Visit * Reason Onset Date Comments Orders 09/17/2023 Encounter Details Date Type Department Care Team (Late st Contact Info) Description 09/17/2023 Telephone [facility] [address] [place] [address] [place] [address] [place] [address] Orders Social History Tobacco Use Types Packs/Day Years [...] on file documented as of this encounter Miscellaneous Notes * Telephone Encounter - Oliva Muñoz RN - 09/17/2023 12:38 PM CDT [employer] calling from [facility] ext [phone] Asking for addendum for catheter supplies of 3 months or greater per insurance requirements. Needs to state for 3 months or more or can say lifetime. Order if signed by Urologist Carlos Joyner. Advised should contact that provider's office. Transferred to get to correct care team. Oliva Muñoz RN documented in this encounter Plan of Treatment Upcoming Encounters Date Type Department Care Team ([facility] st Contact Info) Description 11/26/2023 PRE VISIT [facility] Surgery Clinic [address] [place] [address] Alissa Perez PA-C [address] [place] [address] 035315 Previsit 12/08/2023 9:30 AM CDT Office Visit [facility] [place] [address] [facility] 4th [place] [phone] [place] [address] [address] [place], [place] [phone] Alissa Perez PA-C 500 [place], [place] 204965 documented as of this encounter Visit Diagnoses Not on filedocumented in this encounter Care Teams Block Saw Operator Relationship Specialty [place] [address] [place] [address] PCP - General 03/05/23 Carlos Joyner MD [address] [place] [address] 873385 Urology 12/09/19 Jadon Murray MD [facility] [address] [address] Referring Physician Pediatric Surgery 12/09/19 Maru Villagomez, RN Registered Nurse 12/10/19 Ang Slade MD [address] [place] [address] [address] [place], [place] 306385 Urology 04/24/20 Carlos Joyner MD [address] [place] [address] 585415 Assigned Surgical Provider 12/24/20 Ang Slade MD [address] [place] [address] 776395 Urology 12/18/22 Lakshmi Wilhelm PA-C [address] [place] [address] 493565 Physician Coal Hiker Urology 02/03/23 [place] [address] [place] [address] Assigned PCP 02/06/23 Alissa Perez PA-C [address] [place] [address] 783615 Physician Coal Hiker Surgery 09/04/23 Lakshmi Wilhelm PA-C [address] [place] [address] Physician Coal Hiker Urology 09/16/23 documented as of this encounter
--- OUTSIDE RECORDS SUMMARY | 2023-10-31 20:46 | XMS_ITS | Encounter Summary ---
Author Organization [place] Address [address] [place] [address]. [place] [address] Care Team Providers Care Eyewear Manufacturing Supervisor Name Role Phone Carlos Joyner MD Unavailable [phone] Jadon Murray MD Unavailable [phone] Maru Villagomez RN Unavailable Unavailable Ang Slade MD Unavailable [phone] Carlos Joyner MD Unavailable [phone] Ang Slade MD Unavailable [phone] Lakshmi Wilhelm-C Unavailable [phone] Heladio Willoughby MD Primary Care Provider [phone] Heladio Willoughby MD Unavailable Alissa Perez PA-C Unavailable [phone] LaLakshmi morales-C Unavailable [phone] Reason for Visit * Reason Onset Date Comments Dme 10/14/2023 Encounter Details Date Type Department Care Team (Late st Contact Info) Description 10/14/2023 Telephone [facility] [address] [place] [address] [place] [address] [place] [address] Dme Social History Tobacco Use Types Packs/Day Years [...] encounter Miscellaneous Notes * Telephone Encounter - Kasia Gutierrez - 10/16/2023 11:03 AM CDT Faxed. Kasia Romero Lead Tub Chucker [facility] * Telephone Encounter - Heladio Willoughby MD - 10/16/2023 10:39 AM CDT Signed. Placed in outgoing box. Heladio Willoughby MD [facility] 10/16/2023 * Telephone Encounter - Kasia Gutierrez - 10/16/2023 9:38 AM CDT Forms/Letter Request Type of form/letter: DME Type of DME requested: Neurogenic bowel supplies Do we have the form/letter: Yes: Prescribing Order for Supplies Who is the form from? [employer] (if other please explain) Where did/will the form come from? form was faxed in When is form/letter needed by: RUPA How would you like the form/letter returned: Form placed in provider's basket for review and signature Kasia Gutierrez Lead Tub Chucker [facility] * Telephone Encounter - Tanisha Kaur RN - 10/16/2023 7:09 AM CDT Returned call to [facility] with [employer]. She will fax form over for Dr. Leija to sign today. Tanisha Kaur RN on 10/16/2023 at 7:10 AM * Telephone Encounter - Heladio Willoughby MD - 10/16/2023 6:45 AM CDT Yes, will to sign order. Thanks, Heladio Willoughby MD [facility] * Telephone Encounter - Tanisha Kaur RN - 10/14/2023 2:45 PM CDT [employer] calls requesting order for Peristeen System. Patient has a week left of supplies and previous GI provider unwilling to re-order since patient has not seen them in over a year. [facility] not have appointment with [facility] until Mid November. Routing to PCP to inquire. Triage, If PCP able to sign order, please return call to [employer], they will fax order form over for signature. Tanisha Kaur RN on 10/14/2023 at 2:53 PM documented in this encounter Plan of Treatment Upcoming Encounters Date Type Department Care Team (Late st Contact Info) Description 11/26/2023 PRE VISIT [facility] [address] [phone] Alissa Perez PA-C [address] [place] [address] 149165 Previsit 12/08/2023 9:30 AM CDT Office Visit [facility] [address] [phone] [place] [address] [facility] [place], [place] 46658[address] Alissa Perez PA-C [address] [place] [address] 848915 documented as of this encounter Visit Diagnoses Not on filedocumented in this encounter Care Teams Eyewear Manufacturing Supervisor Relationship Specialty [place] [address] [address] [place], [place] [phone] PCP - General 03/05/23 Carlos Joyner MD [address] [place] [address] Urology 12/09/19 Jadon Murray MD [facility] 2530 [facility] [address] [place] [address] Referring Physician Pediatric Surgery 12/09/19 Maru Villagomez, RN Registered Nurse 12/10/19 Ang Slade MD [address] [place] [address] 394 [place], [place] 047175 Urology 04/24/20 Carlos Joyner MD [address] [place] [address] 920955 Assigned Surgical Provider 12/24/20 Ang Slade MD [address] [place] [address] 505355 MD Urology 12/18/22 Lakshmi Wilhelm PA-C [address] [place] [address] 592855 Physician Operations Intelligence Urology 02/03/23 [place] [address] [place] [address] Assigned PCP 02/06/23 Alissa Perez PA-C [address] [place] [address]452 Physician Operations Intelligence Surgery 09/04/23 Lakshmi Wilhelm PA-C [address] [place] [address] Physician Operations Intelligence Urology 09/16/23 documented as of this encounter
--- OUTSIDE RECORDS SUMMARY | 2023-10-31 20:46 | XMS_ITS | Encounter Summary ---
Author Organization [place] Address [address] [place] [address]216 Care Team Providers Care Hot Sealing Machine Operator Name Role Phone Carlos Joyner MD Unavailable [phone] Jadon Murray MD Unavailable [phone] Maru Villagomez RN Unavailable Unavailable Ang Slade MD Unavailable [phone] Carlso Joyner MD Unavailable [phone] Ang Slade MD Unavailable [phone] Lakshmi Wilhelm-C Unavailable [phone] Heladio Willoughby MD Primary Care Provider [phone] Heladio Willoughby MD Unavailable Alissa Perez PA-C Unavailable [phone] Lakshmi Wilhelm-C Unavailable [phone] Encounter Details Date Type Department Care Team (Latest Contact Info) Description 2023 Travel Social History Tobacco Use Types Packs/Day [...] st Contact Info) Description 11/26/2023 PRE VISIT [facility] Clinic [address] [phone] Alissa Perez PA-C 500 [place] [address] Previsit 12/08/2023 9:30 AM CDT Office Visit [facility] [address] [phone] [place] [address] [place] [address] Alissa Perez PA-C 500 [place], [place] 856535 documented as of this encounter Visit Diagnoses Not on filedocumented in this encounter Care Teams Hot Sealing Machine Operator Relationship Specialty Start [place] [address] [place] [address] PCP - General 03/05/23 Carlos Joyner MD [address] [place] [address] 907535 Urology 12/09/19 Jadon Murray MD [facility] 2530 [facility] [address] [place] [address] Referring Physician Pediatric Surgery 12/09/19 Maru Villagomez, RN Registered Nurse 12/10/19 Ang Slade MD 420 [facility] 394 [place], [place] 847515 Urology 04/24/20 Carlos Joyner MD [address] [place] [address] 455585 Assigned Surgical Provider 12/24/20 Ang Slade MD 420 [facility] 394 [place], [place] 496005 Urology 12/18/22 Lakshmi Wilhelm PA-C [address] [place] [address] 624995 Physician Subway Repair Supervisor Urology 02/03/23 [place] [address] [facility] [place] [address] Assigned PCP 02/06/23 Alissa Perez PA-C [address] [place] [address] 322395 Physician Subway Repair Supervisor Surgery 09/04/23 Lakshmi Wilhelm PA-C 909 [place] [address] Physician Subway Repair Supervisor Urology 09/16/23 documented as of this encounter
--- OUTSIDE RECORDS SUMMARY | 2023-10-31 20:46 | XMS_ITS | Encounter Summary ---
Author Organization [place] Address [address] [place] [address]. [place] [address] Care Team Providers Care Funeral Home Associate Name Role Phone Carlos Joyner MD Unavailable [phone] Jadon Murray MD Unavailable [phone] Maru Villagomez RN Unavailable Unavailable Ang Slade MD Unavailable [phone] Carlos Joyner MD Unavailable [phone] Ang Slade MD Unavailable [phone] Lakshmi Wilhelm-C Unavailable [phone] Heladio Willoughby MD Primary Care Provider [phone] Heladio Willoughby MD Unavailable Alissa Perez PA-C Unavailable [phone] LaLakshmi morales-C Unavailable [phone] Reason for Visit * Reason Onset Date Comments Medication Question 09/18/2023 Encounter Details Date Type Department Care Team (Late st Contact Info) Description 09/18/2023 [facility] [address] [place] [address] [place] [address] [place] [address] Medication Question Social History Tobacco Use Types Packs/Day Years [...] st Contact Info) Description 11/26/2023 PRE VISIT [facility] and [facility]al Surgery Clinic [address] [phone] Alissa Perez PA-C 500 [place], [place] 380485 Previsit 12/08/2023 9:30 AM CDT Office Visit [facility] [address] [address] [place] [address] [place] [address] Alissa Perez PA-C 500 [place], [place] 252885 documented as of this encounter Visit Diagnoses Not on filedocumented in this encounter Care Teams Funeral Home Associate Relationship Specialty [place] [address] [place] [address] PCP - General 03/05/23 Carlos Joyner MD [address] [place] [address] Urology 12/09/19 Jadon Murray MD [facility] [address] [address] Referring Physician Pediatric Surgery 12/09/19 Maru Villagomez, OTILIO Registered Nurse 12/10/19 Ang Slade MD [address] [place] [address] Urology 04/24/20 Carlos Joyner MD [address] [place] [address] Assigned Surgical Provider 12/24/20 Ang Slade MD [address] [place] [address] Urology 12/18/22 Lakshmi Wilhelm PA-C [address] [place] [address]369 Physician Children'S Choir Director Urology 02/03/23 [place] [address] [address] [place] [address] Assigned PCP 02/06/23 Alissa Perez PA-C [address] [place] [address] Physician Children'S Choir Director Surgery 09/04/23 Lakshmi Wilhelm PA-C [address] [place] [address] 649775 Physician Children'S Choir Director Urology 09/16/23 documented as of this encounter
--- OUTSIDE RECORDS SUMMARY | 2023-10-31 20:46 | XMS_ITS | Encounter Summary ---
Author Organization [place] Address [address] [place] [address] Care Team Providers Care Service Support Representative Name Role Phone Carlos Joyner MD Unavailable [phone] Jadon Murray MD Unavailable [phone] Maru Villagomez RN Unavailable Unavailable Ang Slade MD Unavailable [phone] Carlos Joyner MD Unavailable [phone] Ang Slade MD Unavailable [phone] Lakshmi Wilhelm PA-C Unavailable [phone] Heladio Willoughby MD Primary Care Provider [phone] Heladio Willoughby MD Unavailable Alissa Perez PA-C Unavailable [phone] Lakshmi Wilhelm PA-C Unavailable [phone] Reason for Visit * Reason Onset Date Comments Appointment 10/01/2023 Rescheduled 11/25 Appt Encounter Details Date Type Department Care Team ([facility] st Contact Info) Description 10/01/2023 Telephone [facility] Clinic [address] [place] [address] Alissa Perez PA-C [address] [place] [address] Appointment (Rescheduled 11/25 Appt) Social History Tobacco Use Types Packs/Day Years [...] encounter Miscellaneous Notes * Telephone Encounter - Madhav Dempsey - 10/01/2023 3:05 PM CDT Patient confirmed scheduled appointment: Date: 12/08/23 Time: 9:30 am Visit type: New Patient Provider: Alissa Perez Location: [facility] Testing/imaging: n/a Additional notes: rescheduled 11/25 appt due to the provider being out documented in this encounter Plan of Treatment Upcoming Encounters Date Type Department Care Team (Late st Contact Info) Description 11/26/2023 PRE VISIT [facility] [address] [place] [address] Alissa Perez PA-C [address] [place] [address] Previsit 12/08/2023 9:30 AM CDT Office Visit [facility] [address] [place] [phone] [place] [address] [facility] [place], [place] 0323468 Alissa Perez PA-C [address] [place] [address] 785215 documented as of this encounter Visit Diagnoses Not on filedocumented in this encounter Care Teams Service Support Representative Relationship Specialty [place] [address] [place] [address] PCP - General 03/05/23 Carlos Joyner MD [address] [place] [address] Urology 12/09/19 Jadon Murray MD [facility] [address] [address] Referring Physician Pediatric Surgery 12/09/19 Maru Villagomez, OTILIO Registered Nurse 12/10/19 Ang Slade MD [address] [place] [address] Urology 04/24/20 Carlos Joyner MD [address] [place] [address] Assigned Surgical Provider 12/24/20 Ang Slade MD [address] [place] [address] [place] [address] Urology 12/18/22 Lakshmi Wilhelm PA-C [address] [place] [address] Physician County Library Director Urology 02/03/23 [place] [address] [place] [address] Assigned PCP 02/06/23 Alissa Perez PA-C [address] [place] [address] Physician County Library Director Surgery 09/04/23 Lakshmi Wilhelm PA-C [address] [place] [address] Physician County Library Director Urology 09/16/23 documented as of this encounter
--- OUTSIDE RECORDS SUMMARY | 2023-10-31 20:46 | XMS_ITS | Encounter Summary ---
Author Organization [place] Address [address] [place] [address] Care Team Providers Care Grease Renderer Name Role Phone Carlos Joyner MD Unavailable [phone] Jadon Murray MD Unavailable Maru Villagomez RN Unavailable Unavailable Ang Slade MD Unavailable [phone] Carlos Joyner MD Unavailable [phone] Ang Slade MD Unavailable Lakshmi Wilhelm-C Unavailable Heladio Willoughby MD Primary Care Provider Heladio Willoughby MD Unavailable Alissa Perez PA-C Unavailable [phone] LaLakshmi morales-C Unavailable Reason for Visit * Diagnostic Imaging XR (Routine) - Pending Review Specialty Diagnoses / Procedures Referred By Charli t Referred To Contact Radiology. Diagnoses Kidney stone Procedures XR KUB XR Abdomen 2 Views Carlos Joyner MD [address] [place] [address] Referral ID Status Reason Start Date Expiration Date V isits Requested Visits Authorized [id number] Pending Review 06/24/2023 06/23/2024 1 1 Encounter Details Date Type Department Care Team (Latest Contact Info) Description 2023 8:16 AM CDT - 2023 11:59 PM CDT Hospital Encounter [facility] [address] [facility] [address] [place] [address] Carlos Joyner MD [address] [place] [address] Kidney stone Discharge Disposition: Home or Self [...] ALGINATE 2X2) PADSIndications:Pressu re ulcer acquired in [facility] Externally apply 1 each topically daily 10 each 04/16/2023 documented as of this encounter Plan of Treatment Upcoming Encounters Date Type Department Care Team (Late st Contact Info) Description 11/26/2023 PRE VISIT [facility] [address] [phone] Alissa Preez PA-C 500 [place] [address] Previsit 12/08/2023 9:30 AM CDT Office Visit [facility] [address] [phone] [place] [address] [place] [address] Alissa Perez PA-C 500 [place], [place] 043215 documented as of this encounter Procedures Procedure Name Priority Date/Time Associated Diagnosis Comments XR KUB Routine 2023 8:47 AM CDT Kidney stone documented in this encounter Results * XR KUB (2023 8:47 AM CDT) [...] Joyner MD IMG DIAGNOSTIC MAYLIN GING ORDERABLES documented in this encounter Visit Diagnoses Diagnosis Kidney stone Calculus of kidney documented in this encounter Care Teams Grease Renderer Relationship Specialty Start [place] [address] [place] [address] PCP - General 03/05/23 Carlos Joyner MD [address] [place] [address] Urology 12/09/19 Jadon Murray MD [facility] [address] [address] Referring Physician Pediatric Surgery 12/09/19 Maru Villagomez, OTILIO Registered Nurse 12/10/19 Ang Slade MD [address] [place] [address] Urology 04/24/20 Carlos Joyner MD [address] [place] [address] 874895 Assigned Surgical Provider 12/24/20 Ang Slade MD [address] [place] [address] 9[address] Urology 12/18/22 Lakshmi Wilhelm PA-C [address] [place] [address] 451035 Physician Continuous Miner Operator Urology 02/03/23 [place] [address] [place] [address] Assigned PCP 02/06/23 Alissa Perez PA-C [address] [place] [address] 984415 Physician Continuous Miner Operator Surgery 09/04/23 Lakshmi Wilhelm PA-C [address] [place] [address] 134725 Physician Continuous Miner Operator Urology 09/16/23 documented as of this encounter
--- OUTSIDE RECORDS SUMMARY | 2023-10-31 20:46 | XMS_ITS | Encounter Summary ---
Author Organization [facility] Address [address] [place] [address] Care Team Providers Care Tool Grinder Name Role Phone Carlos Joyner MD Unavailable [phone] Jadon Murray MD Unavailable [phone] Maru Villagomez RN Unavailable Unavailable Ang Slade MD Unavailable [phone] Carlos Joyner MD Unavailable [phone] Ang Slade MD Unavailable [phone] Lakshmi Wilhelm PA-C Unavailable Heladio Willoughby MD Primary Care Provider [phone] Heladio Willoughby MD Unavailable Alissa Perez-C Unavailable [phone] Lakshmi WilhelmC Unavailable [phone] Reason for Visit * Reason Onset Date Comments Pre Visit Planning - Done 10/06/2023 UDS fo r neurogenic bladder/urinary incontinence. Records available in [employer] Encounter Details Date Type Department Care Team (Late st Contact Info) Description 10/06/2023 PRE VISIT [facility] [address] 4th [place] [address] Lakshmi Wilhelm PA-C [address] [place] [address] Pre Visit Planning - Done (UDS for neurogenic bladder/urinary incontinence. Records available in [facility].) Social History Tobacco Use Types Packs/Day Years [...] encounter Miscellaneous Notes * Telephone Encounter - Narda Malloy CMA - 10/07/2023 6:40 AM CDT UDS for neurogenic bladder/urinary incontinence. Records available in [facility]. documented in this encounter Plan of Treatment Upcoming Encounters Date Type Department Care Team (Late st Contact Info) Description 11/26/2023 PRE VISIT [facility] [address] [place] [address] Alissa Perez PA-C [address] [place] [address] Previsit 12/08/2023 9:30 AM CDT Office Visit [facility] [place] [address] [facility] 4th [place] [phone] [place] [address] [place], [place] [phone] Alissa Perez PA-C [address] [place] [address] 943265 documented as of this encounter Visit Diagnoses Not on filedocumented in this encounter Care Teams Tool Grinder Relationship Specialty [place] [address] [place] [address] PCP - General 03/05/23 Carlos Joyner MD [address] [place] [address] Urology 12/09/19 Jadon Murray MD [facility] [address] [address] Referring Physician Pediatric Surgery 12/09/19 Maru Villagomez, OTILIO Registered Nurse 12/10/19 Ang Slade MD [address] [place] [address] Urology 04/24/20 Carlos Joyner MD [address] [place] [address] Assigned Surgical Provider 12/24/20 Ang Slade MD [address] [place] [address] Urology 12/18/22 Lakshmi Wilhelm PA-C [address] [place] [address] Physician Director [facility] 02/03/23 [place] [address] [place] [address] Assigned PCP 02/06/23 Alissa Perez PA-C [address] [place] [address] Physician Director [facility] Surgery 09/04/23 Lakshmi Wilhelm PA-C [address] [place] [address] Physician Director [facility] 09/16/23 documented as of this encounter
--- OUTSIDE RECORDS SUMMARY | 2023-10-31 20:46 | XMS_ITS | Referral Summary ---
Author Organization [facility] Address [address] [place] [address] Care Team Providers Care Patient Resource Specialist Name Role Phone Carlos Joyner MD Unavailable [phone] Jadon Murray MD Unavailable [phone] Maru Villagomez RN Unavailable Unavailable Ang Slade MD Unavailable [phone] Carlos Joyner MD Unavailable [phone] Ang Slade MD Unavailable [phone] Lakshmi Wilhelm-C Unavailable [phone] Heladio Willoughby MD Primary Care Provider [phone] Heladio Willoughby MD Unavailable Alissa Perez PA-C Unavailable [phone] Lakshmi Wilhelm-C Unavailable [phone] Encounters Date Type Department Care Team Description 10/15/2023 Travel 10/15/2023 9:00 AM CDT Allied Health/Nurse Visit [facility] Urology [address] 4th [place] [address] Lakshmi Wilhelm PA-C Urodynamics Study (Neurogenic bladder/urin... 10/14/2023 Telephone [facility] [address] [place] [address] Heladio Willoughby MD Dme 10/10/2023 Travel 10/06/2023 PRE VISIT [facility] [address] [phone] Lakshmi Wilehlm PA-C Pre Visit Planning - Done (UDS for neurogenic bladder/urinary incontinence. Records available in [facility] 10/01/2023 Telephone [facility] [address] [phone] Alissa Perez PA-C Appointment (Rescheduled 11/25 Appt) 09/24/2023 Orders Only [facility] - Surgical Specialties Service Line [address] [place] [address] [phone] Carlos Joyner MD 09/23/2023 8:00 AM CDT Virtual Visit [facility] [address] [phone] Carlos Joyner MD Kidney stone (Primary Dx) 09/18/2023 MyC Medical Advice [facility] [address] [place] [phone] Heladio Willoughby MD Medication Question 09/18/2023 MyC Medical Advice [facility] [address] [phone] Carlos Joyner MD 09/17/2023 Telephone [facility] [address] [phone] Carlos Joyner MD Orders; update perscription order notes 09/17/2023 Telephone [facility] [address] [place] [phone] Heladio Willoughby MD Orders 09/17/2023 PRE VISIT [facility] [address] [phone] Carlos Joyner MD Pre Visit Planning - Done 2023 Orders Only [facility] [address] [place] [address] AidaRoberto carey Genie Kidney stone 2023 Travel 2023 8:15 AM CDT Hospital Encounter [facility] [address] [place] [phone] Carlos Joyner MD Kidney stone Discharge Disposition: Home or Self Care 2023 8:16 AM CDT - 2023 11:59 PM CDT Hospital Encounter [facility] [address] [place] [phone] Carlos Joyner MD Kidney stone Discharge Disposition: Home or Self Care 09/14/2023 Orders Only [facility] [address] [phone] Rosita Velasco RN Urinary incontinence, unspecified type (Primary Dx) 09/08/2023 MyC Medical Advice [address] [address] Bhavna Ferris 09/08/[address] [address] Lakshmi Wilhelm PA-C Appointment 09/05/2023 Telephone [facility] [address] [place] [address] Heladio Willoughby MD Orders 09/05/2023 8:30 AM CDT Virtual Visit [address] [address] Lakshmi Wilhelm PA-C Urinary incontinence, unspecified type (Primary Dx); Neurogenic bladder; Continuous leakage of urine 09/04/2023 MyC Medical Advice [facility] [address] [place] [phone] Tanisha Kaur RN 09/03/2023 Telephone [facility] [address] [phone] Carlos Joyner MD Prior Auth - Medication (Gentamicin 480mg/l bladder irrigation (compounded)-primar y INSURANCE PA APPROVED) 09/03/[address] [phone] Heladio Willoughby MD Nurse Advice Line (update) 09/02/2023 Travel 09/02/2023 11:00 AM CDT Office Visit [address] [phone] Heladio Willoughby MD Diarrhea of presumed infectious origin (Primary Dx); Rectal bleeding; Continuous leakage of urine; Neurogenic bladder; Irregular heartbeat; control counseling; Paraplegia (H) 09/01/2023 Travel 08/29/[address] [phone] Heladio Willoughby MD wound care orders; Referral; [facility] 08/29/2023 [place] [address] [place] [phone] Heladio Willoughby MD Forms; Orders 08/26/2023 1:30 PM CDT Virtual Visit [facility] [address] [phone] Lakshmi Wilhelm PA-C Neurogenic bladder (Primary Dx) 08/22/2023 Telephone [facility] [address] [phone] Carlos Joyner MD Prior Auth - Medication (Gentamicin 480mg/l bladder irrigation (compounded)-PA DENIED-APPEAL INITIATED TO [employer]) 08/18/2023 MyC Medical Advice [facility] [address] [place] [phone] Analisa Conner 08/18/2023 MyC Medical Advice [facility] [address] [place] [phone] Heladio Willoughby MD Call To Schedule Appointment (Follow up: D... 08/13/2023 Travel 08/13/2023 11:00 AM CDT Lab [facility] [address] [place] [phone] Recurrent UTI 08/12/2023 Telephone [facility] [address] [address] Rosita Velasco RN Clinic Care Coordination - Follow-up (Symptoms ) 08/05/2023 Medical Correspondence [facility] [address] [place] [address] Scan, Non-Provider 08/01/2023 Documentation Only [facility] [address] [place] [address] Carlos Joyner MD Forms; Orders from Last 3 Months Allergies Active Allergy Reactions Criticality Noted Date [...] ALGINATE 2X2) PADSIndications:Pres sure ulcer acquired in critical access hospital hospital Externally apply 1 each topically daily [...] Acute cystitis 04/04/2019 Ulcer, surgical 06/07/2011 S/P SKEINER shunt 04/29/2011 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) 08/04/2008 Overview: Kyphosis Neurogenic bladder 07/22/2003 Overview: LW Onset: 54Cmq01 ; Paralysis Bladder Neurogenic bowel 07/22/2003 Overview: LW Onset: 67Bds19 Paraplegia 07/22/2003 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/2003 Overview: LW Onset: 85Ynq61 ; Short Stature 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/22/2003 Overview: LW Modifier: shunted LW Onset: 16Qid60 ; Spina Bifida Lumbar w Hydrocephalus Resolved Problems Problem Noted Date Diagnosed Date Resolved Date Acute kidney failure, unspecified (H24) 02/10/2020 03/05/2023 Immunizations Name Administration Dates Next Due DTAP (<7y) 01/18/2008,05/06/2005 DTaP, Unspecified 01/16/2015 DTaP/HepB/IPV 05/27/2003,03/21/2003,2002 Flu, Unspecified 02/26/2016,02/21/2009, 4 W3d0-45 Novel Flu 03/18/2009 [id number] Novel Flu P-free 03/30/2004,05/27/2003 HEPATITIS A (PEDS [...] 01/18/2008, 005 TDAP (Adacel,Boostrix) 01/16/2015 Varicella 01/18/2008,09/15/2003 Social History Tobacco Use Types Packs/Day Years [...] st Contact Info) Description 11/26/2023 PRE VISIT [facility] [address] [phone] Alissa Perez PA-C [address] [place], [place] [address] Previsit 12/08/2023 9:30 AM CDT Office Visit [facility] [address] [phone] [place] [address] [place] [address] Alissa Perez PA-C [address] [place], [place] [phone] Medical Devices Implanted Type Area Deck And Hull Assembler Device Identifier Shelf Expiration Date Model / Serial / Lot Stent Ureteral Percuflex Plus [id number] - [id number] Implanted:Qty: 1 on 11/12/2021 by Carlos Joyner MD at [facility] Stent Right: Abdomen [employer] [id number] 12/26/2022 [id number] Ureteral Catheter 5 Singaporean Implanted:Qty: 1 on 03/31/2023 by Elizabeth Jacobsen MD at [facility] Right: Ureter 02/02/2026 [id number] Description:5 yemeni Uretera l catheter used as a stent in right ureter 5 Singaporean Open Ended Catheter Implanted:Qty: 1 on 03/31/2023 by Elizabeth Jacobsen MD at [facility] Left: Ureter 02/19/2026 [id number] Explanted Type Area Deck And Hull Assembler Device Identifier Shelf Expiration Date Model / Serial / Lot Stent Ureteral Percuflex Plus [id number] - [id number] Implanted:Qty: 1 on 05/10/2021 by Carlos Joyner MD at [facility] Explanted:Qty: 1 on 08/09/2021 by Jane Gomez MD at [facility] Stent Right: Urethra [employer] 06/14/2022 [id number] Description:Ureter Stent Ureteral Percuflex Plus [id number] - [id number] Implanted:Qty: 1 on 05/10/2021 by Carlos Joyner MD at [facility] Explanted:Qty: 1 on 08/09/2021 by Jane Gomez MD at [facility] Stent Left: Urethra [employer] 07/25/2022 [id number] Stent Ureteral Percuflex Plus [id number] - [id number] Implanted:Qty: 1 on 08/09/2021 by Jane Gomez MD at [facility] Explanted:Qty: 1 on 11/12/2021 at [facility] Stent Right: Ureter [employer] 02/29/2024 [id number] Stent Ureteral Percuflex Plus [id number] - [id number] Implanted:Qty: 1 on 08/09/2021 by Jane Gomez MD at [facility] Explanted:Qty: 1 on 11/12/2021 at [facility] Stent Right: Ureter [employer] 02/29/2024 [id number] 5 Fr X 22cm Ureteral Stent Explanted:Qty: 1 on 02/07/2020 by Carlos Joyner MD at [facility] COOK 5 Fr X 22cm Ureteral Stent Explanted:Qty: 1 on 02/07/2020 by Carlos Joyner MD at [facility] COOK Procedures Procedure Name Priority Date/Time Associated [...] ??No hydronephrosis. SARANYA HALL MD SYSTEM ID: ??[id number] Narrative 2023 1:57 PM CDT US RENAL [...] No hydronephrosis. SARANYA HALL MD SYSTEM ID: [id number] Carlos Joyner MD IMG US ORDERABLES * Basic metabolic panel (Ca, Cl, CO2, Creat, Gluc, K, Na, BUN) (2023 9:45 AM CDT) [facility] Sodium 139 135 - 145 mmol/L 2023 [...] MD LAB - BLOOD ORDERA BLES LABORATORY [facility] Lab [address] [facility] Lab (1st floor, no room number) [place] [address] * XR KUB (2023 8:47 AM CDT) Anatomical Region Laterality Modality Abdomen/Pelvis Radio Fluoroscop y Impressions 2023 1:47 PM CDT IMPRESSION: Unremarkable bowel gas pattern. Previously seen stents are no longer demonstrated. No definite urolithiasis demonstrated currently. ABY GROSS MD Narrative 2023 1:47 PM CDT [...] mg/dL 09/08/2023 11:54 AM CDT LABORATORY Specific [place] Urine 1.020 1.003 - 1.035 09/08/2023 11:54 [...] LAB - URINE ORDERABL ES LABORATORY [facility] [place] [facility] [address] [facility] (no room number, 1st floor of clinic) [place] [address], [facility] * (ABNORMAL) Urine Microscopic Exam [...] LAB - URINE ORDERABL ES LABORATORY [facility] [address] [facility] (no room number, 1st floor of clinic) [place] [address], [facility] * (ABNORMAL) Urine Culture Aerobic Bacterial [...] MICRO GENE RAL ORDERABLES UU IDD LABORATORY [facility] Inf. Diseases Diag. Lab [address] [facility], [address] [place] [address], [facility] * HCG qualitative urine (09/02/2023 12:13 PM CDT) hCG Urine Qualitative Negative Negative LINDA 09/02/2023 12:19 PM CDT LABORATORY Comment:This test is for scr eening purposes. Results should be interpreted along with the clinical picture. Confirmation testing is available if warranted by ordering [id number], HCG Quantitative . Urine URINE SPECIMEN / Unknown Non-blood Collection / Unknown 09/02/2023 12:13 PM CDT 09/02/2023 12:13 PM CDT Heladio Willoughby MD LAB - URINE ORDERABL ES LABORATORY [facility] [place] [facility] [address] [facility] (no room number, 1st floor of clinic) [place] [address], [facility] * EKG 12-lead complete w/read - Clinics (09/02/2023 12:11 PM CDT) Heladio Willoughby MD ECG ORDERABLES * (ABNORMAL) UA reflex to Microscopic (08/13/2023 9:54 AM CDT) Color Urine Yellow Colorless, Straw, Light Yellow, Yellow 08/13/2023 10:02 AM CDT LABORATORY Appearance Urine Cloudy(A) Clear 08/13/19 24 10:02 AM CDT LABORATORY Glucose Urine Negative Negative mg/dL 08/13/2023 10:02 AM CDT LABORATORY Bilirubin Urine Negative Negative 4 10:02 AM CDT LABORATORY Ketones Urine Negative Negative mg/dL 08/13/2023 10:02 AM CDT LABORATORY Specific [place] Urine 1.025 1.003 - 1.035 08/13/2023 10:02 AM CDT LABORATORY Blood Urine Trace(A) Negative 08/13/2023 10:02 AM CDT LABORATORY pH Urine 6.0 5.0 - 7.0 08/13/2023 10:02 AM CDT LABORATORY Protein Albumin Urine Negative Negative mg/dL 08/13/2023 10:02 AM CDT LABORATORY Urobilinogen Urine 0.2 0.2, 1.0 E.U./dL 08/13/2023 10:02 AM CDT LABORATORY Nitrite Urine Positive(A) Negative 08/13/2023 10:02 AM CDT LABORATORY Leukocyte Esterase Urine Moderate(A) Negative 08/13/2023 10:02 AM CDT LABORATORY Urine MID-STREAM URINE SPECIMEN / Unknown Non-blood Collection / Unknown 08/13/2023 9:54 AM CDT 08/13/2023 9:54 AM CDT Lakshmi Wilhelm PA-C LAB - URINE ORDE HUAN LABORATORY [facility] [place] [facility] [address] [facility] Lab (no room number, 1st floor of clinic) [place] [address], [facility] from Last 3 Months Advance Directives For more information, please contact: [phone] Documents on File Type Date Recorded Patient Air Pollution Engineer Expl anation Advance Directives and Living Will [...] continue PREVIOUSLY ORDERED code status Care Teams Patient Resource Specialist Relationship Specialty [place] [address] [place] [address] PCP - General 03/05/23 Carlos Joyner MD [address] [place] [address] [id number] Urology 12/09/19 Jadon Murray MD [facility] [address] [id number] Referring Physician Pediatric Surgery 12/09/19 Maru Villagomez, RN Registered Nurse 12/10/19 Ang Slade MD [address] [place] [address] Urology 04/24/20 Carlos Joyner MD [address] [place] [address] Assigned Surgical Provider 12/24/20 Ang Slade MD [address] [place] [address] 520825 Urology 12/18/22 Lakshmi Wilhelm PA-C [address] [place] [address] Physician Radius Corner Machine Operator Urology 02/03/23 [place] [address] [place] [address] Assigned PCP 02/06/23 Alissa Perez PA-C [address] [place] [address] 155895 Physician Radius Corner Machine Operator Surgery 09/04/23 Lakshmi Wilhelm PA-C [address] [place] [address] Physician Radius Corner Machine Operator Urology 09/16/23
--- OUTSIDE RECORDS SUMMARY | 2023-10-31 20:46 | XMS_ITS | Encounter Summary ---
Author Organization [facility] Address [address] [place] [address] Care Team Providers Care Gas Well Drilling Manager Name Role Phone Carlos Joyner MD Unavailable [phone] Jadon Murray MD Unavailable [phone] Maru Villagomez RN Unavailable Unavailable Ang Slade MD Unavailable [phone] Carlos Joyner MD Unavailable [phone] Ang Slade MD Unavailable [phone] Lakshmi Wilhelm-C Unavailable Heladio Willoughby MD Primary Care Provider [phone] Heladio Willoughby MD Unavailable Alissa Perez PA-C Unavailable [phone] LaLakshmi morales-C Unavailable [phone] Reason for Visit * Reason Onset Date Comments Pre Visit Planning - Done 09/17/2023 Encounter Details Date Type Department Care Team (Late st Contact Info) Description 09/17/2023 PRE VISIT [facility] [address] [place] [address] Carlos Joyner MD [address] [place] [address] Pre Visit Planning - Done Social History Tobacco Use Types Packs/Day Years [...] encounter Miscellaneous Notes * Telephone Encounter - Gemma Zayas LPN - 09/17/2023 8:36 AM CDT Reason for visit: Return Kidney stone Relevant information: [place]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 Possible non-obstructing left renal calculi Records/imaging/labs/orders: BMP, XR KUB, US Renal complete done as of 09/17/23 Pt called: Gwendolyn Zayas LPN 09/17/2023 8:36 AM documented in this encounter Plan of Treatment Upcoming Encounters Date Type Department Care Team (Late st Contact Info) Description 11/26/2023 PRE VISIT [facility] [address] [place] [address] Alissa Perez PA-C [address] [place] [address] 464035 Previsit 12/08/2023 9:30 AM CDT Office Visit [facility] [place] [address] [facility] [address] [place] [phone] [place] [address] [facility] [place], [place] [phone] Alissa Perez PA-C [address] [place], [place] 1314[address] documented as of this encounter Visit Diagnoses Not on filedocumented in this encounter Care Teams Gas Well Drilling Manager Relationship Specialty Start [place] [address] [place] [address] PCP - General 03/05/23 Carlos Joyner MD [address] [place] [address] [id number] Urology 12/09/19 Jadon Murray MD [facility] [address] [address] Referring Physician Pediatric Surgery 12/09/19 Maru Villagomez, RN Registered Nurse 12/10/19 Ang Slade MD [address] [place] [address] 394 [place], [place] 0078[address] Urology 04/24/20 Carlos Joyner MD [address] [place] [address] Assigned Surgical Provider 12/24/20 Ang Slade MD [address] [place] [address] 448105 Urology 12/18/22 Lakshmi Wilhelm PA-C [address] [place] [address] 942545 Physician Ring Sorter Urology 02/03/23 [place] [address] [place] [address] Assigned PCP 02/06/23 Alissa Perez PA-C [address] [place] [address] 770175 Physician Ring Sorter Surgery 09/04/23 Lakshmi Wilhelm PA-C [address] [place] [address] Physician Ring Sorter Urology 09/16/23 documented as of this encounter
--- OUTSIDE RECORDS SUMMARY | 2023-10-31 20:46 | XMS_ITS | Encounter Summary ---
Author Organization [place] Address [address] [place] [address] Care Team Providers Care High School Math Teacher Name Role Phone Carlos Joyner MD Unavailable [phone] Jadon Murray MD Unavailable [phone] Maru Villagomez RN Unavailable Unavailable Ang Slade MD Unavailable [phone] Carlos Joyner MD Unavailable [phone] Ang Slade MD Unavailable [phone] Lakshmi Wilhelm-C Unavailable +[phone] Heladio Willoughby MD Primary Care Provider [phone] Heladio Willoughby MD Unavailable Alissa Perez PA-C Unavailable [phone] LaLakshmi morales-C Unavailable [phone] Encounter Details Date Type Department Care Team (Late st Contact Info) Description 2023 Orders Only [facility] [address] [place] [address] Roberto Rod Kidney stone Social History Tobacco Use Types Packs/Day Years [...] st Contact Info) Description 11/26/2023 PRE VISIT [facility] [address] [address] Alissa Perez PA-C 500 [place], [place] 0[address]45 Previsit 12/08/2023 9:30 AM CDT Office Visit [facility] [address] [phone] [place] [address] [facility] [place] [address] Alissa Perez PA-C 500 [place], [place] 536785 documented as of this encounter Procedures Procedure Name Priority Date/Time Associated Diagnosis Comments BASIC METABOLIC PANEL Routine 2023 9:45 AM CDT Kidney stone documented in this encounter Results * Basic metabolic panel (Ca, Cl, CO2, Creat, Gluc, K, Na, BUN) (2023 9:45 AM CDT) [facility] Signature Sodium 139 135 - 145 mmol/L 2023 [...] MD LAB - BLOOD ORDERA [facility] Acute Care Lab [address] [facility] Lab (1st floor, no room number) [place] [address], [facility] documented in this encounter Visit Diagnoses Diagnosis Kidney stone Calculus of kidney documented in this encounter Care Teams High School Math Teacher Relationship Specialty [place] [address] [address] [place] [address] PCP - General 03/05/23 Carlos Joyner MD [address] [place] [address] Urology 12/09/19 Jadon Murray MD [facility] [address] [id number] Referring Physician Pediatric Surgery 12/09/19 Maru Villagomez, RN Registered Nurse 12/10/19 Ang Slade MD [address] [place] [address] 54070 Urology 04/24/20 Carlos Joyner MD [address] [place] [address] 25224 Assigned Surgical Provider 12/24/20 Ang Slade MD [address] [place] [address] 383365 Urology 12/18/22 Lakshmi Wilhelm PA-C [address] [place] [address] 577185 Physician Lead Architect Urology 02/03/23 [place] [address] [place] [address] Assigned PCP 02/06/23 Alissa Perez PA-C [address] [place] [address] Physician Lead Architect Surgery 09/04/23 Lakshmi Wilhelm PA-C [address] [place] [address] 885805 Physician Lead Architect Urology 09/16/23 documented as of this encounter
--- OUTSIDE RECORDS SUMMARY | 2023-10-31 20:46 | XMS_ITS | Encounter Summary ---
Author Organization [place] Address [address] [place] [address]015 Care Team Providers Care Insurance Risk Analyst Name Role Phone Carlos Joyner MD Unavailable [phone] Jadon Murray MD Unavailable [phone] Maru Villagomez RN Unavailable Unavailable Ang Slade MD Unavailable +[phone] Carlos Joyner MD Unavailable [phone] Ang Slade MD Unavailable [phone] Lakshmi Wilhelm-C Unavailable [phone] Heladio Willoughby MD Primary Care Provider [phone] Heladio Willoughby MD Unavailable Alissa Perez PA-C Unavailable [phone] LaLakshmi morales-C Unavailable Reason for Visit * Reason Onset Date Comments Orders 09/17/2023 update perscription order notes 09/17/2023 Encounter Details Date Type Department Care Team (Late st Contact Info) Description 09/17/2023 Telephone [facility]rology Clinic [address] [place] [address] Carlos Joyner MD [address] [place] [address] Orders; update perscription order notes Social History Tobacco Use Types Packs/Day Years [...] encounter Miscellaneous Notes * Telephone Encounter - Rosita Velasco RN - 09/17/2023 2:25 PM CDT RN indicated Lifetime on original prescription, so unclear what needs to be done to clarify this order. RN called [facility] and requested a call back for clarification. OTILIO Becker Automobile Appraiser- Urology [phone] * Telephone Encounter - Anjali Jackie - 09/17/2023 12:57 PM CDT [facility] Phone Message May a detailed message be left on voicemail: yes Reason for Call: Order(s): Other: Reason for requested: please update order notes for insurance purposes Date needed: yodit Provider name: Anya Please update the catheter supplies order - MUST BE 3 MONTHS OR GREATER (or lifetime) per insurancerequirements. The script is ok, but the attached notes must indicate minimum of 3 months in order to be covered by insurance. Please fax to [facility] at [phone] so [facility] can dispense. Thank you! Action Taken: Message routed to: [facility] Urology Travel Screening: Not Applicable documented in this encounter Plan of Treatment Upcoming Encounters Date Type Department Care Team (Late st Contact Info) Description 11/26/2023 PRE VISIT [facility] Colon and Rectal Surgery [address] [phone] Alissa Perez PA-C [address] [place] [address] 582135 Previsit 12/08/2023 9:30 AM CDT Office Visit [facility] Colon and Rectal Surgery [address] [phone] [place] [address] [address] [place], [place] 3464168 Alissa Perez PA-C [address] [place] [address] 161925 documented as of this encounter Visit Diagnoses Not on filedocumented in this encounter Care Teams Insurance Risk Analyst Relationship Specialty Start [place] [address] [place] [address] PCP - General 03/05/23 Carlos Joyner MD [address] [place] [address] 11960 Urology 12/09/19 Jadon Murray MD [facility] 2530 [facility] [address] [place] [address] Referring Physician Pediatric Surgery 12/09/19 Maru Villagomez, RN Registered Nurse 12/10/19 Ang Slade MD 420 [facility] 394 [place], [place] 934805 Urology 04/24/20 Carlos Joyner MD [address] [place] [address] 087325 Assigned Surgical Provider 12/24/20 Ang Slade MD 420 [facility] 394 [place], [place] 939575 MD Urology 12/18/22 Lakshmi Wilhelm PA-C [address] [place] [address] 566285 Physician Song Lyricist Urology 02/03/23 [place] [address] [place] [address] Assigned PCP 02/06/23 Alissa Perez PA-C [address] [place] [address] 248855 Physician Song Lyricist Surgery 09/04/23 Lakshmi Wilhelm PA-C [address] [place] [address] 044905 Physician Song Lyricist Urology 09/16/23 documented as of this encounter
--- OUTSIDE RECORDS SUMMARY | 2023-10-31 20:46 | XMS_ITS | Encounter Summary ---
Author Organization [place] Address [address] [place] [address]43 Care Team Providers Care Planning Feeder Name Role Phone Carlos Joyner MD Unavailable [phone] Jadon Murray MD Unavailable [phone] Maru Villagomez RN Unavailable Unavailable Ang Slade MD Unavailable [phone] Carols Joyner MD Unavailable [phone] Ang Slaed MD Unavailable [phone] Lakshmi Wilhelm-C Unavailable [phone] Heladio Willoughby MD Primary Care Provider [phone] Heladio Willoughby MD Unavailable Alissa Perez PA-C Unavailable [phone] Lakshmi Wilhelm-C Unavailable [phone] Encounter Details Date Type Department Care Team (Latest Contact Info) Description 10/10/2023 Travel Social History Tobacco Use Types Packs/Day [...] st Contact Info) Description 11/26/2023 PRE VISIT [facility] and [facility]al Surgery Clinic [address] [phone] Alissa Perez PA-C 500 [place] [address] Previsit 12/08/2023 9:30 AM CDT Office Visit [facility] [address] [phone] [place] [address] [place] [address] Alissa Perez PA-C 500 [place], [place] 686415 documented as of this encounter Visit Diagnoses Not on filedocumented in this encounter Care Teams Planning Feeder Relationship Specialty Start [place] [address] [place] [address] PCP - General 03/05/23 Carlos Joyner MD [address] [place] [address] 096075 Urology 12/09/19 Jadon Murray MD [facility] 2530 [facility] 550 [place] [address] Referring Physician Pediatric Surgery 12/09/19 Maru Villagomez, RN Registered Nurse 12/10/19 Ang Slade MD 420 [facility] 394 [place], [place] 241535 Urology 04/24/20 Carlos Joyner MD [address] [place] [address] 441445 Assigned Surgical Provider 12/24/20 Ang Slade MD 420 [facility] 394 [place], [place] 028545 Urology 12/18/22 Lakshmi Wilhelm PA-C [address] [place] [address] 974175 Physician Telecommunications Field Engineer Urology 02/03/23 [place] [address] [facility] [place] [address] Assigned PCP 02/06/23 Alissa Perez PA-C [address] [place] [address] 119545 Physician Telecommunications Field Engineer Surgery 09/04/23 Lakshmi Wilhelm PA-C 909 [place] [address] Physician Telecommunications Field Engineer Urology 09/16/23 documented as of this encounter
--- OUTSIDE RECORDS SUMMARY | 2023-10-31 20:47 | XMS_ITS | Encounter Summary ---
Author Organization [place] Address [address] [place] [address] 63339 Care Team Providers Care Maintenance Pipefitter Name Role Phone Carlos Joyner MD Unavailable [phone] Jadon Murray MD Unavailable [phone] Maru Villagomez RN Unavailable Unavailable Ang Slade MD Unavailable [phone] Carlos Joyner MD Unavailable [phone] Ang Slade MD Unavailable [phone] Lakshmi Wilhelm-C Unavailable [phone] Heladio Willoughby MD Primary Care Provider [phone] Heladio Willoughby MD Unavailable Alissa Perez-C Unavailable [phone] Reason for Visit * Reason Onset Date Comments Appointment 09/08/2023 Encounter Details Date Type Department Care Team (Late st Contact Info) Description 09/08/[address] [address] Lakshmi Wilhelm PA-C 9 [place] [address] Appointment Social History Tobacco Use Types Packs/Day Years [...] encounter Miscellaneous Notes * Telephone Encounter - Bhavna Ferris - 09/12/2023 9:15 AM CDT Left Voicemail (2nd Attempt) for the patient to call back and schedule the following: Appointment type: Urodynamics Provider: Lakshmi Wilhelm PA-C Return date: next available Specialty phone number: [phone] Additonal Notes: Urodynamics with Lakshmi Wilhelm in 4 weeks or next soonest available after that Bhavna biswas Complex Supervisor Sewing Department Dermatology, Surgery, Urology [facility] * Telephone Encounter - Bhavna Ferris - 09/08/2023 9:53 AM CDT Left Voicemail (1st Attempt) for the patient to call back and schedule the following: Appointment type: Urodynamics Provider: Lakshmi Wilhelm PA-C Return date: next available Specialty phone number: [phone] Additonal Notes: Urodynamics with Lakshmi Severinocarmen in 4 weeks or next soonest available after that Bhavna Valadez Supervisor Sewing Department Dermatology, Surgery, Urology [facility] documented in this encounter Plan of Treatment Upcoming Encounters Date Type Department Care Team (Late st Contact Info) Description 11/26/2023 PRE VISIT [facility] Colon and Rectal Surgery [address] [phone] Alissa Perez PA-C [address] [place] [address] 662405 Previsit 12/08/2023 9:30 AM CDT Office Visit [facility] Colon and Rectal Surgery [address] [phone] [place] [address] [place], [place] 3650868 Alissa Perez PA-C [address] [place] [address] 375315 documented as of this encounter Visit Diagnoses Not on filedocumented in this encounter Care Teams Maintenance Pipefitter Relationship Specialty [place] [address] [facility] [place] [address] PCP - General 03/05/23 Carlos Joyner MD [address] [place] [address] 26716 Urology 12/09/19 Jadno Murray MD [facility] [address] [address] Referring Physician Pediatric Surgery 12/09/19 Maru Villagomez, RN Registered Nurse 12/10/19 Ang Slade MD [address] [place] [address] Urology 04/24/20 Carlos Joyner MD [address] [place] [address] 88666 Assigned Surgical Provider 12/24/20 Ang Slade MD [address] [place] [address] Urology 12/18/22 Lakshmi Wilhelm PA-C [address] [place] [address] 18780 Physician Plant Sprayer Urology 02/03/23 [place] [address] [place] [address] Assigned PCP 02/06/23 Alissa Perez PA-C [address] [place] [address] 27747 Physician Plant Sprayer Surgery 09/04/23 documented as of this encounter
--- OUTSIDE RECORDS SUMMARY | 2023-10-31 20:47 | XMS_ITS | Encounter Summary ---
Author Organization [place] Address [address] [place] [address] 14347 Care Team Providers Care Fire Boat Engineer Name Role Phone Carlos Joyner MD Unavailable [phone] Jadon Murray MD Unavailable [phone] Maru Villagomez RN Unavailable Unavailable Ang Slade MD Unavailable [phone] Carlos Joyner MD Unavailable [phone] Ang Slade MD Unavailable [phone] Lakshmi Wilhelm PA-C Unavailable [phone] Heladio Willoughby MD Primary Care Provider [phone] Heladio Willoughby MD Unavailable Encounter Details Date Type Department Care Team (Latest Contact Info) Description 08/13/2023 Travel Social History Tobacco Use Types Packs/Day [...] st Contact Info) Description 11/26/2023 PRE VISIT [facility] Colon and Rectal Surgery Clinic [address] [phone] Alissa Perez PA-C [address] [place] [address] 387495 Previsit 12/08/2023 9:30 AM CDT Office Visit [facility] Colon and Rectal Surgery [address] [phone] [place] [address] [address] [place], [place] 0731168 Alissa Perez PA-C [address] [place] [address] 205615 documented as of this encounter Visit Diagnoses Not on filedocumented in this encounter Care Teams Fire Boat Engineer Relationship Specialty Start [place] [address] [address] [place] [phone] PCP - General 03/05/23 Carlos Joyner MD [address] [place] [address] 63[address] Urology 12/09/19 Jadon Murray MD [facility] [address] [facility] 550 [place], [place] 41633404 Referring Physician Pediatric Surgery 12/09/19 Maru Villagomez, RN Registered Nurse 12/10/19 Ang Slade MD 420 [facility] 394 [place], [place] 418255 Urology 04/24/20 Carlos Joyner MD 909 [place], [place] 895695 Assigned Surgical Provider 12/24/20 Ang Slade MD 420 [facility] 394 [place], [place] 082905 Urology 12/18/22 Lakshmi Wilhelm PA-C 909 [place], [place] 886335 Physician Mounting Inspector Urology 02/03/23 [place] [address] [place] [address] Assigned PCP 02/06/23 documented as of this encounter
--- OUTSIDE RECORDS SUMMARY | 2023-10-31 20:47 | XMS_ITS | Encounter Summary ---
Author Organization [place] Address [address] [place] [address]123 Care Team Providers Care Cafe Team Member Name Role Phone Carlos Joyner MD Unavailable [phone] Jadon Murray MD Unavailable [phone] Maru Villagomez RN Unavailable Unavailable Ang Slade MD Unavailable +[phone] Carlos Joyner MD Unavailable [phone] Ang Slade MD Unavailable [phone] Lakshmi Wilhelm PA-C Unavailable [phone] Heladio Willoughby MD Primary Care Provider [phone] Heladio Willoughby MD Unavailable Encounter Details Date Type Department Care Team (Latest Contact Info) Description 09/02/2023 Travel Social History Tobacco Use Types Packs/Day [...] st Contact Info) Description 11/26/2023 PRE VISIT [facility] Colon and Rectal Surgery Clinic [address] [phone] Alissa Perez PA-C [address] [place] [address] 805175 Previsit 12/08/2023 9:30 AM CDT Office Visit [facility] Colon and Rectal Surgery [address] [phone] [place] [address] [address] [place], [place] 5140568 Alissa Perez PA-C [address] [place] [address] 136045 documented as of this encounter Visit Diagnoses Not on filedocumented in this encounter Care Teams Cafe Team Member Relationship Specialty Start [place] [address] [address] [phone] PCP - General 03/05/23 Carlos Joyner MD [address] [place] [address]874 Urology 12/09/19 Jadon Murray MD [facility] 2530 [facility] 550 [place], [place] 62659404 Referring Physician Pediatric Surgery 12/09/19 Maru Villagomez, RN Registered Nurse 12/10/19 Ang Slade MD 420 [facility] 394 [place], [place] 465045 Urology 04/24/20 Carlos Joyner MD 909 [place], [place] 920515 Assigned Surgical Provider 12/24/20 Ang Slade MD 420 [facility] 394 [place], [place] 346625 Urology 12/18/22 Lakshmi Wilhelm PA-C 909 [place], [place] 544745 Physician Safety Analyst Urology 02/03/23 [place] [address] [place] [address] Assigned PCP 02/06/23 documented as of this encounter
--- OUTSIDE RECORDS SUMMARY | 2023-10-31 20:47 | XMS_ITS | Encounter Summary ---
Author Organization [place] Address [address] [place] [address] 26920 Care Team Providers Care Ramp Flight Attendant Name Role Phone Carlos Joyner MD Unavailable [phone] Jadon Murray MD Unavailable [phone] Maru Villagomez RN Unavailable Unavailable Ang Slade MD Unavailable [phone] Carlos Joyner MD Unavailable [phone] Ang Slade MD Unavailable [phone] Lakshmi Wilhelm-C Unavailable [phone] Heladio Willoughby MD Primary Care Provider [phone] Heladio Willoughby MD Unavailable Alissa Perez PA-C Unavailable [phone] LaLakshmi morales-C Unavailable [phone] Encounter Details Date Type Department Care Team (Late st Contact Info) Description 09/08/2023 MyC Medical Advice [address] [address] Bhavna Ferris Social History Tobacco Use Types Packs/Day Years [...] st Contact Info) Description 11/26/[address] [facility] Colon and Rectal Surgery Clinic [address] [phone] Alissa Perez PA-C 500 [place], [place] 513705 Previsit 12/08/2023 9:30 AM CDT Office Visit [facility] Colon and Rectal Surgery Clinic [address] [phone] [place] [address] [place] [address] Alissa Perez PA-C 500 [place], [place] 885155 documented as of this encounter Visit Diagnoses Not on filedocumented in this encounter Care Teams Ramp Flight Attendant Relationship Specialty [place] [address] [place] [address] PCP - General 03/05/23 Carlos Joyner MD [address] [place] [address] Urology 12/09/19 Jadon Murray MD [facility] [address] [facility] 550 [place] [address] Referring Physician Pediatric Surgery 12/09/19 Maru Villagomez, OTILIO Registered Nurse 12/10/19 Ang Slade MD [address] [place] [address] 862065 Urology 04/24/20 Carlos Joyner MD [address] [place] [address] 659295 Assigned Surgical Provider 12/24/20 Ang Slade MD [address] [place] [address] 852875 Urology 12/18/22 Lakshmi Wilhelm PA-C [address] [place] [address] 937315 Physician Director Professional Services Urology 02/03/23 [place] [address] [place] [address] Assigned PCP 02/06/23 Alissa Perez PA-C [address] [place] [address] 055666 Physician Director Professional Services Surgery 09/04/23 Lakshmi Wilhelm PA-C [address] [place] [address] Physician Director Professional Services Urology 09/16/23 documented as of this encounter
--- OUTSIDE RECORDS SUMMARY | 2023-10-31 20:47 | XMS_ITS | Encounter Summary ---
Author Organization [facility] Address [address] [place] [address] 8[address]35 Care Team Providers Care Cement Mason Apprentice Name Role Phone Carlos Joyner MD Unavailable [phone] Jadon Murray MD Unavailable [phone] Maru Villagomez RN Unavailable Unavailable Ang Slade MD Unavailable [phone] Carlos Joyner MD Unavailable [phone] Ang Slade MD Unavailable [phone] Lakshmi Wilhelm PA-C Unavailable [phone] Heladio Willoughby MD Primary Care Provider [phone] Heladio Willoughby MD Unavailable Encounter Details Date Type Department Care Team (Latest Contact Info) Description 09/01/2023 Travel Social History Tobacco Use Types Packs/Day [...] st Contact Info) Description 11/26/2023 PRE VISIT [facility] Colon and [facility]al Surgery Clinic [address] [phone] Alissa Perez PA-C [address] [place] [address] 633695 Previsit 12/08/2023 9:30 AM CDT Office Visit [facility] Colon and Rectal Surgery [address] [phone] [place] [address] [address] [place], [place] [phone] Alissa Perez PA-C [address] [place] [address] 131345 documented as of this encounter Visit Diagnoses Not on filedocumented in this encounter Care Teams Cement Mason Apprentice Relationship Specialty Start [place] [address] [address] [phone] PCP - General 03/05/23 Carlos Joyner MD [address] [place] [address] 8[address] Urology 12/09/19 Jadon Murray MD [facility] 2530 [facility] 550 [place], [place] 633[address]404 Referring Physician Pediatric Surgery 12/09/19 Maru Villagomez, RN Registered Nurse 12/10/19 Ang Slade MD 420 [facility] 394 [place], [place] 888955 Urology 04/24/20 Carlos Joyner MD 909 [place], [place] 500865 Assigned Surgical Provider 12/24/20 Ang Slade MD 420 [facility] 394 [place], [place] 335925 Urology 12/18/22 Lakshmi Wilhelm PA-C 909 [place], [place] 979695 Physician Weather Stripper Urology 02/03/23 [place] [address] [place] [address] Assigned PCP 02/06/23 documented as of this encounter
--- OUTSIDE RECORDS SUMMARY | 2023-10-31 20:47 | XMS_ITS | Encounter Summary ---
Author Organization [place] Address [address] [place] [address]. [place] [address] Care Team Providers Care Mortgage Consultant Name Role Phone Carlos Joyner MD Unavailable [phone] Jadon Murray MD Unavailable [phone] Maru Villagomez RN Unavailable Unavailable Ang Slade MD Unavailable [phone] Carlos Joyner MD Unavailable [phone] Ang Slade MD Unavailable [phone] Lakshmi Wilhelm-C Unavailable [phone] Heladio Willoughby MD Primary Care Provider [phone] Heladio Willoughby MD Unavailable Alissa Perez PA-C Unavailable [phone] Reason for Visit * Reason Onset Date Comments Forms 08/29/2023 Orders 08/29/2023 Encounter Details Date Type Department Care Team (Late st Contact Info) Description 08/29/2023 Telephone [facility] [address] [place] [address] [place] [address] [place] [address] Forms; Orders Social History Tobacco Use Types Packs/Day [...] * Telephone Encounter - Kasia Gutierrez - 09/15/2023 3:35 PM CDT Faxed. Kasia Romero Lead Janitor And Cleaner [facility] * Telephone Encounter - Heladio Willoughby MD - 09/15/2023 3:18 PM CDT Signed. Placed in outgoing box. Heladio [facility] MD [facility] 09/15/2023 * Telephone Encounter - Kasia Gutierrez - 09/15/2023 2:17 PM CDT Forms/Letter Request Type of form/letter: OTHER: Fax Face Sheet Do we have the form/letter: Yes: Face Sheet Who is the form from? [facility] (if other please explain) Where did/will the form come from? form was faxed in When is form/letter needed by: RUPA How would you like the form/letter returned: Fax : LORI Curtis [phone] Note on sheet: We received a incontinence and urology prescription for Laina Escudero. In order for us to dispense we are in need of signed recent progress notes within the past 12 months that talks about the need for incontinence and urology products. On the prescription there also needs to be a length of need/refills Please fax to LORI Curtis [phone] Placed in provider basket with printed visit from 09/02/23 for review and signature Kasia Gutierrez Lead Janitor And Cleaner [facility] Yancy Villarreal * Telephone Encounter - Kasia Gutierrez - 09/12/2023 11:37 AM CDT Order faxed and encounter routed to Urology. Kasia Gutierrez Lead Janitor And Cleaner [facility] Yancy Villarreal * Telephone Encounter - Lynette Bhakta RN - 09/12/2023 11:24 AM CDT Routing to to assist with faxing order. Thanks! Lynette Bhakta RN * Telephone Encounter - Heladio Willoughby MD - 09/11/2023 4:02 PM CDT Placed order. Please fax to [facility]. Disregard the bed rails, patient doesn't want these. Please route to Urology for remaining items. Heladio Willoughby MD [facility] Cherelle Haines 09/11/2023 * Telephone Encounter - Tamara Islas RN - 09/10/2023 10:16 AM CDT Called [facility]. Spoke to Derian. She said they needed the following - Added for primary care - Swabstick povodine-iodine sterrile - 2 boxes - Glove nitrile exam med 100/bx - 6 boxes - Underpad 30x36 in wings Habs - 6 bags - Inc brief derma dry xxl 12/bg - 6 bags - Cath enema set w/15 rg - 2 boxes They will contact urology for the other supplies. I had also ramy'd up a separate DME for the bed rails if that is ok. They need the order faxed to [facility] at [phone]. * Telephone Encounter - Tamara Islas RN - 09/09/2023 8:14 AM CDT Called to try to find out from [facility] the quantity of each supply that is needed. Spoke with Maru. She said that [facility] is out of the office today. She will leave her a message. Ramy'd up supplies. When [facility] calls back, please add the quantity of supplies that is needed. Thenforward to Dr. Willoughby. Can also forward on to Urology and they can order there part. * Telephone Encounter - Heladio Willoughby MD - 09/08/2023 2:17 PM CDT Yes, individual orders. There should be prior orders to copy for amounts (ramy'd up from Eliazar YAÑEZ last time). Then should be sent over to Urology for remaining orders. Heladio Willoughby MD [facility] 09/08/2023 * Telephone Encounter - Milena Vides RN - 09/05/2023 3:08 PM CDT Looks like there are individual orders for each item? Are there to be amounts for each? Looks like there was a request for bed rails also. After setting this up, do we send urology their portion? Milena Vides RN * Telephone Encounter - Heladio Willoughby MD - 09/05/2023 1:31 PM CDT Received large list of DME supplies again but now insurance requiring items to go through [facility]. Please see last MyChart/telephone encounter from 04/18/23 to identify which ones PCP should order and which ones need to be sent to Urology for orders. Specifics copy pasted from below: Provided with DME supply list for patient which needs orders. Will route to nurse triage to review paperwork, help place orders to sign. Some orders will need to go through Urology including cath, irrigation, gentamicin. Added for primary care - Swabstick povodine-iodine sterrile - Glove nitrile exam med 100/bx - Underpad 30x36 in wings Habs - Inc brief derma dry xxl 12/bg - Cath enema set w/15 rg Left out for Urology - Cath Urine straight 14fr 10 in cure - NaCl 0.9% irrigation 250 mls - Gentamicin 120 mg/250 ml NS - Cargo Surveyor irrigation - Urinal Male Please see list and ramy up PCP orders. Thanks, Heladio Willoughby MD [facility] 09/05/2023 * Telephone Encounter - Aidee Hassan RN - 08/29/2023 1:47 PM CDT Tanisha from [employer] calling to request order for bed rails to assist with ADL's. Please advise if this can be added to the DME order. OTILIO Hoskins on 08/29/2023 at 1:48 PM * Telephone Encounter - Kasia Gutierrez - 08/29/2023 12:23 PM CDT Rec'd Working DT Supply Items from [facility]. Placed in PCP basket for review and signature. . Kasia Gutierrez Lead Janitor And Cleaner [facility] Yancy [facility] * Telephone Encounter - Derian Evangelista, RN - 08/29/2023 11:[address] Leija and MA/TC: [facility] with [facility] calling to report that pt is switching to [facility] d/t coverage from Medicare. [facility] is needing all DME supply orders renewed with medical necessity (associated dx) and last office visit notes sent to: . [facility] will be faxing the needed supply list (needed orders listed) to the [facility] station at #[phone]. Please assist, thank you! Derian Evangelista, RN on 08/29/2023 at 12:18 PM documented in this encounter Plan of Treatment Upcoming Encounters Date Type Department Care Team (Late st Contact Info) Description 11/26/2023 PRE VISIT [facility] [address] [address] Alissa Perez PA-C [address] [place], [place] [id number] Previsit 12/08/2023 9:30 AM CDT Office Visit [facility] [address] [address] [place] [address] [address] [place] [address] Alissa Perez PA-C [address] [place] [id number] documented as of this encounter Visit Diagnoses Diagnosis Paraplegia (H)- Primary Paraplegia Thoracic spina bifida, unspecified hydrocephalus presence (H) documented in this encounter Care Teams Mortgage Consultant Relationship Specialty [place] [address] [place] [address] PCP - General 03/05/23 Carlos Joyner MD [address] [place] [address] Urology 12/09/19 Jadon Murray MD [facility] [address] [facility] [address] [place] [address] Referring Physician Pediatric Surgery 12/09/19 Maru Villagomez, OTILIO Registered Nurse 12/10/19 Ang Slade MD [address] [place] [address] [address] [place] [address] Urology 04/24/20 Carlos Joyner MD [address] [place] [address] Assigned Surgical Provider 12/24/20 Ang Slade MD [address] [place] [address] [address] [place] [address] Urology 12/18/22 Lakshmi Wilhelm PA-C [address] [place] [address] Physician Jogger Operator Urology 02/03/23 [place] [address] [place] [address] Assigned PCP 02/06/23 Alissa Perez PA-C [address] [place] [address] Physician Jogger Operator Surgery 09/04/23 documented as of this encounter
--- OUTSIDE RECORDS SUMMARY | 2023-10-31 20:47 | XMS_ITS | Encounter Summary ---
Author Organization [place] Address [address] [place] [address] Care Team Providers Care Long Chain Beamer Name Role Phone Carlos Joyner MD Unavailable [phone] Jadon Murray MD Unavailable [phone] Maru Villagomez RN Unavailable Unavailable Ang Slade MD Unavailable [phone] Carlos Joyner MD Unavailable [phone] Ang Slade MD Unavailable [phone] Lakshmi Wilhelm PA-C Unavailable [phone] Heladio Willoughby MD Primary Care Provider [phone] Heladio Willoughby MD Unavailable Reason for Visit * Reason Onset Date Comments Clinic Care Coordination - Follow-up 08/12/2023 Symptoms Encounter Details Date Type Department Care Team (Late st Contact Info) Description 08/12/2023 Telephone [facility] [place] [id number] [facility] 4th [place] [address] Amari Mcconnell, RN Clinic Care Coordination - Follow-up (Symptoms ) Social History Tobacco Use Types Packs/Day Years [...] encounter Miscellaneous Notes * Telephone Encounter - Amari Mcconnell RN - 08/15/2023 4:22 PM CDT Urine culture results received- per Lakshmi Wilhelm PA-C, sent amoxicillin 500mg BID x 7 days to pharmacy for pt. Advised they stop the Bactrim that was previously dispensed. Sent to [facility] in [place], [place] per caregiver Alecia's request as family is on vacation. OTILIO Becker Display Trimmer- Urology [phone] * Telephone Encounter - Amari Mcconnell RN - 08/14/2023 9:44 AM CDT RN received message from Tanisha pt's guardian, via email requesting follow up on UA/UC results. Pt is leaving for vacation and the family is concerned with obtaining antibiotics prior to leaving. Disc'd with Lakshmi Wilhelm PA-C, who recommends starting Bactrim BID x 7 days while culture results are pending. If culture results require a change in therapy, RN will reach out to pt's guardian and facilitate a different rx. Relayed this information via phone to Tanisha. No additional questions. OTILIO Becker Display Trimmer- Urology [phone] * Telephone Encounter - Amari Mcconnell RN - 08/12/2023 9:58 AM CDT Message received from Tanisha, pt's guardian regarding new urinary leakage. 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 They are unclear what might be causing this. Left direct call back number for further assistance. OTILIO Becker Display Trimmer- Urology [phone] * Addendum Note - Amari Mcconnell RN - 08/12/2023 9:58 AM CDTAddended by: AMARI MCCONNELL on: 08/12/2023 10:21 AM Modules accepted: Orders * Addendum Note - Amari Mcconnell RN - 08/12/2023 9:58 AM CDTAddended by: AMARI MCCONNELL on: 08/14/2023 09:48 AM Modules accepted: Orders * Addendum Note - Amari Mcconnell RN - 08/12/2023 9:58 AM CDTAddended by: AMARI MCCONNELL on: 08/15/2023 04:21 PM Modules accepted: Orders documented in this encounter Plan of Treatment Upcoming Encounters Date Type Department Care Team (Late st Contact Info) Description 11/26/2023 PRE VISIT [facility] [address] [address] Alissa Perez PA-C [address] [place] [address] Previsit 12/08/2023 9:30 AM CDT Office Visit [facility] [place] [id number] [facility] 4th [place] [address] [place] [address] [facility] [place] [address] Alissa Perez PA-C [address] [place], [place] [address] documented as of this encounter Results * (ABNORMAL) Urine Culture Aerobic Bacterial (08/13/2023 9:54 AM CDT) Culture >100,000 CFU/mL Streptococcus constellatus(A) LINDA 08/15/2023 10:00 PM CDT [facility] Comment:This organism is aamir ceptible to ampicillin, penicillin, vancomycin and the cephalosporins. If treatment is required and your patient is allergic to penicillin, contact the microbiology lab within 5 days to request susceptibility testing. Culture 50,000-100,000 CFU/mL Enterococcus faecalis(A) 08/15/2023 10:00 PM CDT [facility] Urine MID-STREAM URINE SPECIMEN / Unknown Non-blood Collection / Unknown 08/13/2023 9:54 AM CDT 08/13/2023 9:54 AM CDT Narrative Organism Antibiotic Method Susceptibility Enterococcus faecalis Ampicillin LINDA <=2 ug/mL: Susceptible Enterococcus faecalis Vancomycin LINDA 1 ug/mL: Susceptible Enterococcus faecalis Nitrofurantoin LINDA <=16 ug/mL: Susceptible Lakshmi Wilhelm PA-C LAB - MICRO GENE RAL ORDERABLES [facility] Inf. Diseases Diag. Lab [address] [facility], [address] [place] [address], [facility] * (ABNORMAL) UA reflex to Microscopic (08/13/2023 9:54 AM CDT) Color Urine Yellow Colorless, Straw, Light Yellow, Yellow 08/13/2023 10:02 AM CDT LABORATORY Appearance Urine Cloudy(A) Clear 08/13/19 24 10:02 AM CDT LABORATORY Glucose Urine Negative Negative mg/dL 08/13/2023 10:02 AM CDT LABORATORY Bilirubin Urine Negative Negative 10:02 AM CDT LABORATORY Ketones Urine Negative Negative mg/dL 08/13/2023 10:02 AM CDT LABORATORY Specific Ira Urine 1.025 1.003 - 1.035 08/13/2023 10:02 [...] CDT Lakshmi Wilhelm PA-C LAB - URINE [facility] - [facility] [address] [facility] (no room number, 1st floor of clinic) [place] [address], [facility] documented in this encounter Visit Diagnoses Diagnosis Neurogenic bladder- Primary Neurogenic bladder, NOS Recurrent UTI Urinary tract infection, site not specified documented in this encounter Care Teams Long Chain Beamer Relationship Specialty [place] [address] [address] [id number] PCP - General 03/05/23 Carlos Joyner MD [address] [place] [address] Urology 12/09/19 Jadon Murray MD [facility] [address] [id number] Referring Physician Pediatric Surgery 12/09/19 Maru Villagomez, RN Registered Nurse 12/10/19 Ang Slade MD [address] [place] [address] Urology 04/24/20 Carlos Joyner MD [address] [place] [address] Assigned Surgical Provider 12/24/20 Ang Slade MD [address] [place] [address] Urology 12/18/22 Lakshmi Wilhelm PA-C [address] [place] [address] Physician Market Research Lead Urology 02/03/23 [place] [address] [address] [address] Assigned PCP 02/06/23 documented as of this encounter
--- OUTSIDE RECORDS SUMMARY | 2023-10-31 20:47 | XMS_ITS | Encounter Summary ---
Author Organization [place] Address [address] [place] [address]. [place] [address] Care Team Providers Care Corporate Account Executive Name Role Phone Carlos Joyner MD Unavailable [phone] Jadon Murray MD Unavailable [phone] Maru Villagomez RN Unavailable Unavailable Ang Slade MD Unavailable [phone] Carlos Joyner MD Unavailable [phone] Ang Slade MD Unavailable [phone] Lakshmi Wilhelm PA-C Unavailable [phone] Heladio Willoughby MD Primary Care Provider [phone] Heladio Willoughby MD Unavailable Reason for Visit * Reason Onset Date Comments Call To Schedule Appointment 08/18/2023 Fol low up: Depo Encounter Details Date Type Department Care Team (Late st Contact Info) Description 08/18/2023 MyC Medical Advice [facility] [address] [place] [address] [place] [address] [place] [address] Call To Schedule Appointment (Follow up: D... Social History Tobacco Use Types Packs/Day Years [...] encounter Miscellaneous Notes * Telephone Encounter - Heladio Willoughby MD - 08/21/2023 10:49 AM CDT Yes, Miralax daily or EOD is ok. Helaido Willoughby MD [facility] 08/21/2023 * Telephone Encounter - Silvia Sidhu - 08/20/2023 11:51 AM CDT Phone # adjusted to reflect preferred number for appointed guardian per chart. Silvia Villarreal Videogame Tester * Telephone Encounter - Milena Vides, RN - 08/20/2023 10:55 AM CDT TC Please change primary number. Routed also to pcp to clarify miralax dosing. Milena Vides RN * Telephone Encounter - Analisa Conner - 08/18/2023 5:26 PM CDT [facility] with [facility] a OV for a Depo inj. Will call F/U in a few days, if Pt doesn't call back. MCM was sent to the Pt. Analisa Villarreal Videogame Tester * Telephone Encounter - Tanisha Kaur RN - 08/18/2023 5:12 PM CDT Please assist in scheduling. Pls see notes below for due date on depo. Tanisha Kaur RN on 08/18/2023 at 5:12 PM * Telephone Encounter - Heladio Willoughby MD - 08/18/2023 3:32 PM CDT Needs visit to discuss constipation. Triage, Can you please review last dose of depo and recommend appropriate next dose? Thanks, Heladio Willoughby MD [facility] 08/18/2023 * Telephone Encounter - Tamara Islas RN - 08/18/2023 2:40 PM CDT Will forward to Dr. Willoughby. Not seeing Tanisha Marlow on consent to communicate or guardianship from Fiduciary papers. Do you want the pt to do some kind of visit for this? Last depo was 04/16/23 - due for next one 07/02/23-07/30/23. documented in this encounter Plan of Treatment Upcoming Encounters Date Type Department Care Team (Late st Contact Info) Description 11/26/2023 PRE VISIT [facility] [address] [place] [phone] Alissa Perez PA-C [address] [place], [place] [address] Previsit 12/08/2023 9:30 AM CDT Office Visit [facility] [place] [address] [phone] [place] [address] [facility] [place] [address] Alissa Perez PA-C [address] [place] [id number] documented as of this encounter Visit Diagnoses Not on filedocumented in this encounter Care Teams Corporate Account Executive Relationship Specialty Start [place] [address] [place] [address] PCP - General 03/05/23 Carlos Joyner MD [address] [place] [address] 952[address] Urology 12/09/19 Jadon Murray MD [facility] [address] [address] Referring Physician Pediatric Surgery 12/09/19 Maru Villagomez, OTILIO Registered Nurse 12/10/19 Ang Slade MD [address] [place] [address] Urology 04/24/20 Carlos Joyner MD [address] [place] [address] Assigned Surgical Provider 12/24/20 Ang Slade MD [address] [place] [address] [address] [place], [place] [address] Urology 12/18/22 Lakshmi Wilhelm PA-C [address] [place] [id number] Physician Anatomy Professor Urology 02/03/23 [place] [address] [place] [address] Assigned PCP 02/06/23 documented as of this encounter
--- OUTSIDE RECORDS SUMMARY | 2023-10-31 20:47 | XMS_ITS | Encounter Summary ---
Author Organization [facility] Address [address] [place] [address] Care Team Providers Care Youth Program Director Name Role Phone Carlos Joyner MD Unavailable [phone] Jadon Murray MD Unavailable [phone] Maru Villagomez RN Unavailable Unavailable Ang Slade MD Unavailable [phone] Carlos Joyner MD Unavailable [phone] Ang Slade MD Unavailable [phone] Lakshmi Wilhelm-C Unavailable Heladio Willoughby MD Primary Care Provider [phone] Heladio Willoughby MD Unavailable Alissa Perez PA-C Unavailable [phone] LaLakshmi morales-C Unavailable Reason for Visit * Reason Onset Date Comments Prior Auth - Medication 08/22/2023 Gentamic in 480mg/l bladder irrigation (compounded)-PA DENIED-APPEAL INITIATED TO [employer] Encounter Details Date Type Department Care Team (Late st Contact Info) Description 08/22/2023 Telephone [facility] [address] 4th [place] [address] Carlos Joyner MD [address] [place] [address] Prior Auth - Medication (Gentamicin 480mg/l bladder irrigation (compounded)-[place] DENIED-APPEAL INITIATED TO [facility]) Social History Tobacco Use Types Packs/Day Years [...] encounter Miscellaneous Notes * Telephone Encounter - Jodi Whittington - 10/10/2023 10:24 AM CDT Images from the original note were not included. Central Prior Authorization Team - Medication Appeal Initiation Medication: COMPOUND 347 IN Appeal Start Date: 10/10/2023 Insurance Company: [employer] Insurance Comments: lmn sent via fax * Telephone Encounter - Rosita Velasco RN - 09/29/2023 2:20 PM CDT Mary- I reached out to the pharmacist [facility] to provide additional documentation. This was the reply I received from Ольга Villagomez PharmD.-[facility] Staff Pharmacist: As it is a compounded medication, it would probably not be listed in either of those references. Weare following HALF-WAY ([place] Pharmacopeia) 797 guidelines for sterile compounding. These standards are recognized, mandated and enforced by the FDA as well as state boards of pharmacy. There are multiple studies from reputable scientific journals that support the use of gentamicin bladder irrigations for UTI. I performed a PubMed search and found many example studies. Dr. Joyner has also detailed the criteria for medical necessity in a previous message. What are the next steps I need to take to have this approved? Rosita Conner RN [facility] [phone] * Telephone Encounter - Jodi Whittington - 09/17/2023 10:29 AM CDT Images from the original note were not included. Central Prior Authorization Team - PRIOR AUTHORIZATION DENIED Medication: COMPOUND 347 IN Insurance Company: [facility] ([facility]) - Denial Date: 09/04/2023 Denial Reason(s): Appeal Information: If the provider would like to appeal, please provide a letter of medical necessity and route back to the team. Otherwise you can close the encounter. Thank you, Central PA Team Patient Notified: NO Unfortunately, we cannot call the patient with denials because we do not know what next steps the MD will take nor can we give medical advice, please notify the patient of what they are to expect forthe continuation of their therapy from the provider. * Telephone Encounter - Jodi Whittington - 09/04/2023 10:16 AM CDT Images from the original note were not included. Prior Authorization Follow Up Received faxed request for additional info, completed form and returned via fax. Waiting for determination. PA DEPT will follow up again on status in 1 to 2 business days. * Telephone Encounter - Jodi Whittington - 09/03/2023 4:45 PM CDT Images from the original note were not included. Central Prior Authorization Team - PA Initiation Medication: COMPOUND 347 IN Insurance Company: [employer] ([facility]) - Pharmacy Filling the Rx: [facility] - [place], [place] - [address] [facility] Pharmacy Filling Pharmacy Fax: Start Date: 09/03/2023 * Telephone Encounter - Patito Cristobal - 08/22/2023 12:53 PM CDTSummary: Prior auth- Gentamicin 480mg/l bladder irrigation (compounded) A prior authorization is needed for the following compounded medications prescribed. Please complete a prior authorization with the information included below. Medication:Gentamicin 480mg/l bladder irrigation (compounded) Ingredients NDCs Quantities Gentamicin sulfate 40mg/ml soln [address]-74 10.8 ml Sodium chloride 0.9% soln [address]-53 889.2 ml Bd syringe 50ml [facility] [address]-29 30 each RX #: [id number] Reason for Rejection:product/service not covered -plan/benefit exclusion Primary Pharmacy Insurance plan:[facility] BIN #:[id number] ID #:[id number] PCN #:[id number] Phone #:[phone] Secondary insurance: [facility] part D Bin: [id number] Id: [id number] Pcn: [phone] Pharmacy Please advise the [facility] @ [phone] when the prior authorization is approved or denied. Thank you for your time. Dayan Cristobal high climber, GHISLAINE Balance Bridge Assembler [facility] [address] [place] [address] [email or web address] documented in this encounter Plan of Treatment Upcoming Encounters Date Type Department Care Team (Late st Contact Info) Description 11/26/2023 PRE VISIT [facility] [address] [phone] Alissa Perez PA-C [address] [place] [address] [id number] Previsit 12/08/2023 9:30 AM CDT Office Visit [facility] [address] [phone] [place] [address] [facility] [place], [place] [id number] Alissa Perez PA-C [address] [place] [address] 974985 documented as of this encounter Visit Diagnoses Not on filedocumented in this encounter Care Teams Youth Program Director Relationship Specialty Start [place] [address] [place] [address] PCP - General 03/05/23 Carlos Joyner MD [address] [place] [address] Urology 12/09/19 Jadon Murray MD [facility] [address] [place] [address] Referring Physician Pediatric Surgery 12/09/19 Maru Villagomez, RN Registered Nurse 12/10/19 Ang Slade MD [address] [place] [address] [address] [place] [address] Urology 04/24/20 Carlos Joyner MD [address] [place] [address] Assigned Surgical Provider 12/24/20 Ang Slade MD [address] [place] [address] Urology 12/18/22 Lakshmi Wilhelm PA-C [address] [place] [address] 61178 Physician Travel Nurse Urology 02/03/23 [place] [address] [place] [address] Assigned PCP 02/06/23 Alissa Perez PA-C [address] [place] [address]152 Physician Travel Nurse Surgery 09/04/23 Lakshmi Wilhelm PA-C [address] [place] [address] 96[address] Physician Travel Nurse Urology 09/16/23 documented as of this encounter
--- OUTSIDE RECORDS SUMMARY | 2023-10-31 20:47 | XMS_ITS | Encounter Summary ---
Author Organization [facility] Address [address] [place] [address]. [place] [address] Care Team Providers Care Escalator Constructor Name Role Phone Carlos Joyner MD Unavailable [phone] Jadon Murray MD Unavailable [phone] Maru Villagomez RN Unavailable Unavailable Ang Slade MD Unavailable [phone] Carlos Joyner MD Unavailable [phone] Ang Slade MD Unavailable [phone] Lakshmi Wilhelm-C Unavailable [phone] Heladio Willoughby MD Primary Care Provider [phone] Heladio Willoughby MD Unavailable Alissa Perez-C Unavailable [phone] Reason for Visit * Reason Onset Date Comments Nurse Advice Line 09/03/2023 update Encounter Details Date Type Department Care Team (Late st Contact Info) Description 09/03/2023 Telephone [facility] [address] [place] [address] [place] [address] [place] [address] Nurse Advice Line (update) Social History Tobacco Use Types Packs/Day Years [...] encounter Miscellaneous Notes * Telephone Encounter - Tanisha Kaur RN - 09/04/2023 7:08 AM CDT Sent [facility] informing Tanisha referral has been placed. Tanisha Kaur RN on 09/04/2023 at 7:08 AM * Telephone Encounter - Heladio Willoughby MD - 09/03/2023 6:15 PM CDT Sent in CRC referral for patient. Heladio Willoughby MD [facility] 09/03/2023 * Telephone Encounter - Daksha Crawford RN - 09/03/2023 10:11 AM CDT Tanisha (legal guardian) calls with update on visit yesterday, also home care, [facility], sees pt 5-6 daysa week, family pays for home care ~wants to confirm referral to colon rectal surgeon, wants referral yodit ~received email from staff informing pt had very extra large BM last night followed by shaheed of blood came out at the end of the BM, has no further information, pt at school now ~had visit yesterday but did not tell Dr Leija about the large BM ~Tanisha will be seeing pt today at school and can confirm above issues with pt, discussed need for evaluation if symptoms worsen or persist Tanisha is legal guardian and will need to sign CTC to have on file for ongoing communication, this was not filled out yesterday, FYI to PCP ROUTED TO DR LEIJA, PLEASE ADVISE COLON RECTAL REFERRAL, ROUTE TO INFORM TANISHA ON CELL Daksha Crawford RN, BSN [facility] documented in this encounter Plan of Treatment Upcoming Encounters Date Type Department Care Team (Late st Contact Info) Description 11/26/2023 PRE VISIT [facility] [address] [phone] Alissa Perez PA-C [address] [place] [address] 225355 Previsit 12/08/2023 9:30 AM CDT Office Visit [facility] Colon [facility] Rectal Surgery [address] [phone] [place] [address] [place] [address] Alissa Perez PA-C [address] [place] [address] 222255 documented as of this encounter Visit Diagnoses Not on filedocumented in this encounter Care Teams Escalator Constructor Relationship Specialty Start [place] [address] [address] [address] PCP - General 03/05/23 Carlos Joyner MD [address] [place] [address] Urology 12/09/19 Jadon Murray MD [facility] [address] [address] Referring Physician Pediatric Surgery 12/09/19 Maru Villagomez, OTILIO Registered Nurse 12/10/19 Ang Sldae MD [address] [place] [address] 564645 Urology 04/24/20 Carlos Joyner MD [address] [place] [address]295 Assigned Surgical Provider 12/24/20 Ang Slade MD [address] [place] [address] Urology 12/18/22 Lakshmi Wilhelm PA-C [address] [place] [address] 254675 Physician Supervisor Prepress Urology 02/03/23 [place] [address] [place] [address] Assigned PCP 02/06/23 Alissa Perze PA-C [address] [place] [address] 276655 Physician Supervisor Prepress Surgery 09/04/23 documented as of this encounter
--- OUTSIDE RECORDS SUMMARY | 2023-10-31 20:47 | XMS_ITS | Encounter Summary ---
Author Organization [facility] Address [address] [place] [address]. [place] [address] Care Team Providers Care Blender Helper Name Role Phone Carlos Joyner MD Unavailable [phone] Jadon Murray MD Unavailable [phone] Maru Villagomez RN Unavailable Unavailable Ang Slade MD Unavailable [phone] Carlos Joyner MD Unavailable [phone] Ang Slade MD Unavailable [phone] Lakshmi Wilhelm-C Unavailable [phone] Heladoi Willoughby MD Primary Care Provider [phone] Heladio Willoughby MD Unavailable Alissa Perez-C Unavailable [phone] Reason for Visit * Reason Onset Date Comments Orders 09/05/2023 Encounter Details Date Type Department Care Team (Late st Contact Info) Description 09/05/2023 Telephone [facility] [address] [place] [address] [place] [address] [place] [address] Orders Social History Tobacco Use [...] Encounter - Heladio Willoughby MD - 09/05/2023 1:36 PM CDT Two encounters open for same issue. Will close this encounter. [facility] * Telephone Encounter - Kasia Gutierrez - 09/05/2023 1:34 PM CDT Routing to provider to advise. Kasia Gutierrez Lead Legal Analyst [facility] * Telephone Encounter - Oliva Muñoz RN - 09/05/2023 12:41 PM CDT Images from the original note were not included. Homa calling from [facility] [phone]. Going to use [facility] due to insurance. [facility] is not Medicare supplier. [facility] wants orders sent to them.There are 24 items. She is faxing to main fax. Unsure if completed below. Will route to care team for follow-up. Oliva Muñoz RN This encounter was handled by a team outside your facility. If action needs to be taken, please route the encounter back to your team at your own clinic, not the sender. Thank you Aidee Hassan RN RG 08/29/23 1:48 PM Note Tanisha from [facility] calling to request order for bed rails to assist with ADL's. Please advise if this can be added to the DME order. OTILIO Hoskins on 08/29/2023 at 1:48 PM FS 08/29/23 1:33 PM [facility] [place] (GUARDIAN; SEE ACP TAB/SCANNED LIST FOR AUTHORIZED STAFF) (Emergency Contact) contacted Aidee Hassan RN CW 08/29/23 12:25 PM Kasia Gutierrez routed this conversation to Heladio Willoughby MD Wood, Chelsey 08/29/23 12:25 PM Note Rec'd Working DT Supply Items from [facility]. Placed in PCP basket for review and signature. . Kasia Gutierrez Lead Legal Analyst [facility] MR 08/29/23 12:21 PM Derian Evangelista, RN routed this conversation to Heladio Fung MD Rohwer, Morgan M, RN MR 08/29/23 12:[address] Leija and MA/TC: Homa with [facility] calling to report that pt is switching to [facility] d/t coverage from Medicare. [facility] is needing all DME supply orders renewed with medical necessity (associated dx) and last office visit notes sent to: . Homa will be faxing the needed supply list (needed orders listed) to the [facility] at #[phone]. Please assist, thank you! Derian Evangelista RN on 08/29/2023 at 12:18 PM documented in this encounter Plan of Treatment Upcoming Encounters Date Type Department Care Team (Late st Contact Info) Description 11/26/2023 PRE VISIT [facility] [address] [phone] Alissa Perez PA-C [address] [place] [address] 684395 Previsit 12/08/2023 9:30 AM CDT [facility] [address] [phone] [place] [address] [place], [place] [phone] Alissa Perez PA-C [address] [place] [address] 768365 documented as of this encounter Visit Diagnoses Not on filedocumented in this encounter Care Teams Blender Helper Relationship Specialty Start [place] [address] [place] [address] PCP - General 03/05/23 Carlos Joyner MD [address] [place] [address] 882375 Urology 12/09/19 Jadon Murray MD [facility] [address] [address] Referring Physician Pediatric Surgery 12/09/19 Maru Villagomez, RN Registered Nurse 12/10/19 Ang Slade MD [address] [place] [address] 883385 Urology 04/24/20 Carlos Joyner MD [address] [place] [address] 027605 Assigned Surgical Provider 12/24/20 Ang Slade MD [address] [place] [address] [phone] Urology 12/18/22 Lakshmi Wilhelm PA-C [address] [place] [address] 490985 Physician Director Information Security Urology 02/03/23 [place] [address] [place] [address] Assigned PCP 02/06/23 Alissa Perez PA-C [address] [place] [address] [id number] Physician Director Information Security Surgery 09/04/23 documented as of this encounter
--- OUTSIDE RECORDS SUMMARY | 2023-10-31 20:47 | XMS_ITS | Encounter Summary ---
Author Organization [facility] Address [address] [place] [address] Care Team Providers Care Airline Customer Service Agent Name Role Phone Carlos Joyner MD Unavailable [phone] Jadon Murray MD Unavailable [phone] Maru Villagomez RN Unavailable Unavailable Ang Slade MD Unavailable [phone] Carlos Joyner MD Unavailable [phone] Ang Slade MD Unavailable [phone] Lakshmi Wilhelm-C Unavailable [phone] Heladio Willoughby MD Primary Care Provider [phone] Heladio Willoughby MD Unavailable Alissa Perez PA-C Unavailable [phone] Encounter Details Date Type Department Care Team (Late st Contact Info) Description 09/04/2023 MyC Medical Advice [address] [phone] Tanisha Kaur, OTILIO Social History Tobacco Use Types Packs/Day Years [...] st Contact Info) Description 11/26/2023 PRE VISIT [facility] [address] [phone] Alissa Perez PA-C [address] [place], [place] 094085 Previsit 12/08/2023 9:30 AM CDT Office Visit [facility] [address] [phone] [place] [address] [place] [address] Alissa Perez PA-C [address] [place], [place] 832905 documented as of this encounter Visit Diagnoses Not on filedocumented in this encounter Care Teams Airline Customer Service Agent Relationship Specialty [place] [address] [address] [address] PCP - General 03/05/23 Carlos Joyner MD [address] [place] [address] 155525 Urology 12/09/19 Jadon Murray MD [facility] [address] [id number] Referring Physician Pediatric Surgery 12/09/19 Maru Villagomez, RN Registered Nurse 12/10/19 Ang Slade MD [address] [place] [address] 549365 Urology 04/24/20 Carlos Joyner MD [address] [place] [address] 19944 Assigned Surgical Provider 12/24/20 Ang Slade MD [address] [place] [address] 194945 Urology 12/18/22 Lakshmi Wilhelm PA-C [address] [place] [address] 924835 Physician Box Chipper Urology 02/03/23 [place] [address] [place] [address] Assigned PCP 02/06/23 Alissa Perez PA-C [address] [place] [address] 630875 Physician Box Chipper Surgery 09/04/23 documented as of this encounter
--- OUTSIDE RECORDS SUMMARY | 2023-10-31 20:47 | XMS_ITS | Encounter Summary ---
Author Organization [place] Address [address] [place] [address] Care Team Providers Care Sheltered Workshop Worker Name Role Phone Carlos Joyner MD Unavailable [phone] Jadon Murray MD Unavailable [phone] Maru Villagomez RN Unavailable Unavailable Ang Slade MD Unavailable [phone] Carlos Joyner MD Unavailable [phone] Ang Slade MD Unavailable [phone] Lakshmi WilhelmC Unavailable [phone] Heladio Willoughby MD Primary Care Provider [phone] Heladio Willoughby MD Unavailable Reason for Visit * Reason Comments RECHECK Encounter Details Date Type Department Care Team (Late st Contact Info) Description 08/26/2023 1:30 PM CDT Virtual Visit [facility] [address] [phone] Lakshmi Wilhelm PA-C [address] [place] [address] Neurogenic bladder (Primary Dx) Social History Tobacco Use Types [...] on file documented as of this encounter Patient Instructions * Patient Instructions* Lakshmi Wilhelm PA-C - 08/26/2023 1:30 PM CDT UROLOGY CLINIC VISIT PATIENT INSTRUCTIONS Call or follow up if incontinence recurs. If you have any issues, questions or concerns in the meantime, do not hesitate to contact us at [phone] or via NOBOT. It was a pleasure meeting with you [...] Progress Notes * Lakshmi Wilhelm PA-C - 08/26/2023 1:30 PM CDT Urology Brief Note Appointment scheduled today to discuss new urinary incontinence Chart review and documentation in preparation for visit: Laina Escudero is a 22 year old female with neurogenic bladder secondary to spina bifida. 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 Joyner). For bladder management, she does CIC per urethra with help from staff. At her last visit with Dr. Slade on 05/05/2023, she was not having any urinary incontinence. Urodynamics on 04/13/23 demonstrated bladder capacity 950 mL with good compliance and no significant DO or stress incontinence. TODAY 08/26/2023: Laina is accompanied by her piano case maker/guardian, Tanisha Marlow, of [employer], as well as her school nurse, Sarika. Sarika noted a few weeks ago that Laina was having large volume incontinence at school with minimal output with straight catheterization. She was diagnosed and treated for a UTI and then went on Spring Break to [place]. Today, Laina reports that she is no longer experiencing incontinence. It was initially reported that Laina was in the state of [place] when the virtual facilitatorschecked her in for today's appointment. However, Evonne disclosed to me that she is currently driving through [place] on her way home to [place]. At this point, the visit was concluded since patient is not in the state of [place]. No medical advice, diagnosis, or treatment was provided. No charge for today's visit. Instructed LainaTanisha, and Sarika to contact urology if incontinence recurs in the future. Wouldbe happy to coordinate another virtual or in person visit should Evonne continue to have bladderproblems that need addressing. Lakshmi Wilhelm PA-C Department of Urology documented in this encounter Nursing Notes * Jami Briones - 08/26/2023 1:30 PM CDT Is the patient currently in the state of [place]? YES Visit mode:TELEPHONE If the visit is dropped, the patient can be reconnected by: VIDEO VISIT: Text to cell phone: Telephone Information: Will anyone else be joining the visit? NO (If patient encounters technical issues they should call [phone] :[phone]) How would you like to obtain your AVS? MyChart Are changes needed to the allergy or medication list? No Are refills needed on medications prescribed by this physician? Reason for visit: RECHECK Jami Townsendlucretia VVF documented in this encounter Plan of Treatment Upcoming Encounters Date Type Department Care Team (Late st Contact Info) Description 11/26/2023 PRE VISIT [facility] [address] [phone] Alissa Perez PA-C [address] [place] [address] [phone] Previsit 12/08/2023 9:30 AM CDT Office Visit [facility] [address] [phone] [place] [address] [facility] [place], [place] [phone] Alissa Perez PA-C [address] [place] [address] 388465 documented as of this encounter Visit Diagnoses Diagnosis Neurogenic bladder- Primary Neurogenic bladder, NOS documented in this encounter Care Teams Sheltered Workshop Worker Relationship Specialty Start [place] [address] [place] [address] PCP - General 03/05/23 Carlos Joyner MD [address] [place] [address] Urology 12/09/19 Jadon Murray MD [facility] [address] [facility] [address] [place] [address] Referring Physician Pediatric Surgery 12/09/19 Maru Villagomez, RN Registered Nurse 12/10/19 Ang Slade MD [address] [facility] [address] [place], [place] 298175 Urology 04/24/20 Carlos Joyner MD [address] [place], [place] 748675 Assigned Surgical Provider 12/24/20 Ang Slade MD [address] [facility] [address] [place] [address] Urology 12/18/22 Lakshmi Wilhelm PA-C 9[address] [place], [place] 068595 Physician Central Office Operator Supervisor Urology 02/03/23 [place] [address] [place] [address] Assigned PCP 02/06/23 documented as of this encounter
--- OUTSIDE RECORDS SUMMARY | 2023-10-31 20:47 | XMS_ITS | Encounter Summary ---
Author Organization [place] Address [address] [place] [address] Care Team Providers Care Early Childhood Special Educator Name Role Phone Carlos Joyner MD Unavailable [phone] Jadon Murray MD Unavailable [phone] Maru Villagomez RN Unavailable Unavailable Ang Slade MD Unavailable [phone] Carlos Joyner MD Unavailable [phone] Ang Slade MD Unavailable [phone] Lakshmi Wilhelm PA-C Unavailable [phone] Heladio Willoughby MD Primary Care Provider [phone] Heladio Willoughby MD Unavailable Encounter Details Date Type Department Care Team (Late st Contact Info) Description 08/13/2023 11:[address] [facility] Laboratory [address] [place] [phone] Recurrent UTI Social History Tobacco Use Types Packs/Day Years [...] Upcoming Encounters Date Type Department Care Team ([facility] st Contact Info) Description 11/26/2023 PRE VISIT [facility] [address] [address] Alissa Perez PA-C [address] [place] [address] Previsit 12/08/2023 9:30 AM CDT Office Visit [facility] [address] [phone] [place] [address] [place] [address] Alissa Perez PA-C [address] [place], [place] [phone] documented as of this encounter Procedures Procedure Name Priority Date/Time Associated Diagnosis Comments URINE MACROSCOPIC WITH REFLEX TO MICRO Routine 08/13/2023 9:54 AM CDT Recurrent UTI URINE MICROSCOPIC EXAM Routine 08/13/2023 9:54 AM CDT Recurrent UTI URINE CULTURE Routine 08/13/2023 9:54 AM CDT Recurrent UTI documented in this encounter Results * (ABNORMAL) Urine Microscopic Exam (08/13/2023 9:54 AM CDT) Bacteria Urine Many(A) None Seen /HPF LINDA 08/13/2023 10:02 AM CDT [facility] LAB[facility]ATORY RBC Urine 0-2 0-2 /HPF /HPF LINDA 08/13/2023 10:02 AM CDT [facility] WBC Urine 25-50(A) 0-5 /HPF /HPF LINDA 08/13/2023 10:02 AM CDT [facility] LAB[facility]ATORY Squamous Epithelials Urine Few(A) None Seen /LPF LINDA 08/13/2023 10:02 AM CDT [facility] LAB[facility]ATORY Urine MID-STREAM URINE SPECIMEN / Unknown Non-blood Collection / Unknown 08/13/2023 9:54 AM CDT 08/13/2023 9:54 AM CDT Lakshmi Wilhelm PA-C LAB - URINE ORDE CRISTOBALLES LABORATORY [facility] [place] [facility] [address] [facility] (no room number, 1st floor of clinic) [place] [address] * (ABNORMAL) Urine Culture Aerobic Bacterial (08/13/2023 [...] PA-C LAB - MICRO GENE RAL ORDERABLES Performing Organization Address City/State/[facility] Co de Phone Number [facility]U IDD LABORATORY [facility] Inf. Diseases Diag. Lab [address] [facility], [address] [place] [id number] * (ABNORMAL) UA reflex to Microscopic (08/13/2023 9:54 AM CDT) Color Urine Yellow Colorless, Straw, Light Yellow, Yellow 08/13/2023 10:02 AM CDT LABORATORY Appearance Urine Cloudy(A) Clear 08/13/19 10:02 AM CDT LABORATORY Glucose Urine Negative Negative mg/dL 08/13/2023 10:02 AM CDT LABORATORY Bilirubin Urine Negative Negative 10:02 AM CDT LABORATORY Ketones Urine Negative Negative mg/dL 08/13/2023 10:02 AM CDT LABORATORY Specific [place] Urine 1.025 1.003 - 1.035 08/13/2023 10:02 [...] Lakshmi Wilhelm PA-C LAB - URINE ORDE RABLES LABORATORY [facility] [place] [facility] [address] [facility] (no room number, 1st floor of clinic) [place] [address], [facility] documented in this encounter Visit Diagnoses Diagnosis Recurrent UTI Urinary tract infection, site not specified documented in this encounter Care Teams Early Childhood Special Educator Relationship Specialty [place] [address] [facility] [place] [address] PCP - General 03/05/23 Carlos Joyner MD [address] [place] [address] [phone] Urology 12/09/19 Jadon Murray MD [facility] [address] [facility] [address] [place], [place] [phone] Referring Physician Pediatric Surgery 12/09/19 Maru Villagomez, RN Registered Nurse 12/10/19 Ang Slade MD [address] [place] [place] [address] [id number] Urology 04/24/20 Carlos Joyner MD [address] [place] [address] 139455 Assigned Surgical Provider 12/24/20 Ang Slade MD [address] [place] [place] [address] 139655 Urology 12/18/22 Lakshmi Wilhelm PA-C [address] [place] [address] 477825 Physician Environmental Health Manager Urology 02/03/23 [place] [address] [place] [address] Assigned PCP 02/06/23 documented as of this encounter
--- OUTSIDE RECORDS SUMMARY | 2023-10-31 20:47 | XMS_ITS | Encounter Summary ---
Author Organization [place] Address [address] [place] [address] Care Team Providers Care Loading Checker Name Role Phone Carlos Joyner MD Unavailable [phone] Jadon Murray MD Unavailable [phone] Maru Villagomez RN Unavailable Unavailable Ang Slade MD Unavailable [phone] Carlos Joyner MD Unavailable [phone] Ang Slade MD Unavailable [phone] Lakshmi Wilhelm PA-C Unavailable [phone] Heladio Willoughby MD Primary Care Provider [phone] Heladio Willoughby MD Unavailable Alissa Perez-C Unavailable [phone] Lakshmi WilhelmC Unavailable [phone] Reason for Visit * Reason Comments RECHECK Encounter Details Date Type Department Care Team ([facility] st Contact Info) Description 09/05/2023 8:30 AM CDT Virtual Visit [address] [place] [address] Lakshmi Wilhelm PA-C [address] [place] [address] Urinary incontinence, unspecified type (Primary Dx); Neurogenic bladder; Continuous leakage of urine Social History Tobacco Use Types Packs/Day Years [...] * Patient Instructions* Lakshmi Wilhelm PA-C - 09/05/2023 8:30 AM CDT UROLOGY CLINIC VISIT PATIENT INSTRUCTIONS VERY important to catheterize 5 times per day without missing any catheterizations. Irrigate your bladder once per day to minimize mucous/sediment and reduce risk for UTI. Submit a urine specimen to [facility] lab for urinalysis and culture to ensure no residual UTI. Schedule urodynamics with Lakshmi Wilhelm PA-C next available. If incontinence improves with the above measures, then cancel urodynamics. URODYNAMIC TESTING Where should I go for this test? The procedure is performed at: [facility] [address] [place] [address] Floor 4 If you have questions about your test, please call our nurse triage line at , option #2. If you need to cancel or reschedule your test for any reason, please notify us as soon as possible. Please check in approximately 15 minutes prior to your procedure time. What is urodynamic testing? Urodynamic testing refers to a group of tests used to assess bladder function by measuring various aspects of urine storage and emptying. The test takes about 75 minutes. For most patients, the test is not painful. How should I get ready for this test? If you received a bladder diary, please complete this prior to your urodynamic test and bring it with you to your appointment. A bladder diary measures how much fluid you are drinking and how often and how much you are urinating. You can also record any urinary leakage that may have occurred and what you were doing when you leaked. If you have chronic constipation, please take stool softeners for two days before your test. What happens during the test? A nurse will place a very small tube (called a catheter) into your bladder. This drains any urine left over after urinating and also measures the pressures inside of your bladder during your test. Another small catheter will then be placed into your rectum to measure abdominal pressures. Two small sticky patches will be placed on the skin near your anus to measure pelvic floor function. We will then instill contrast dye into your bladder through the bladder catheter. The contrast is very dense and will allow us to take x-ray pictures of your bladder intermittently during your test. You will be asked to tell us when you first start to feel like your bladder is filling up, when youhave moderate urgency to urinate, when you have very strong urgency to urinate and finally when youfeel that your bladder is full. You may be asked to cough or bear down several times during your procedure. The provider running your study will be looking for urine leakage during this time. What happens after the test? The provider running your urodynamic study will share the results of your test on the day of your procedure or very soon after. After your test, you may go about your day as normal. You may notice some blood in your urine for acouple of days which should clear up on its own. You may also feel a more urgent need to use the toilet or you may need to go more often - this is due to having a catheter placed and should resolve on its own in a few days. If you have any issues, questions or concerns in the meantime, do not hesitate to contact us at [phone] or via [email or web address]. It was a pleasure meeting with you [...] Progress Notes * Lakshmi Wilhelm PA-C - 09/05/2023 8:30 AM CDT Urology Virtual Visit - Follow Up Reason for visit: urinary incontinence HPI: Laina Escudero is a 22 year old [...] on 08/26/2023: Laina is accompanied by her test case developer/guardian, Tanisha Marlow, of [employer], as well as her school nurse, Sarika. Sarika noted a few weeks ago that Laina was having large volume incontinence at school with minimal output with straight catheterization. She was diagnosed and treated for a UTI and then went on Spring Break to [place]. Today, Laina reports that she is no longer experiencing incontinence. TODAY 09/05/2023: I am meeting again with Laina, Tanisha Marlow (legal guardian / test case developer), and Sarika (school nurse) to discuss ongoing [...] wake up and catheterized by cousin / textile coating machine operator, Alecia. 8:30-9AM - catheterized by school nurse 12:05 PM - brief check by school nurse 2PM - catheterized by school nurse 3:15PM - home 4-4:30PM - catheterized by DESIGN LEAD 8:30PM - catheterized by textile coating machine operator, then bed She sleeps throughout the night without waking to cath. Estlea is sometimes wet in the mornings. She [...] a UA but it was not processed. PEx GENERAL: alert and no distress EYES: Eyes grossly normal to inspection. No discharge or erythema, or obvious scleral/conjunctival abnormalities. RESP: No audible wheeze, cough, or visible cyanosis. SKIN: Visible skin clear. No significant rash, abnormal pigmentation or lesions. NEURO: Cranial nerves grossly intact. Mentation and speech appropriate for age. PSYCH: Appropriate affect, tone, and pace of words LAB: Creatinine Date Value Ref Range Status 06/23/2023 0.52 0.51 - 0.95 mg/dL Final 02/12/2020 0.43 (L) 0.50 - 1.00 mg/dL Final Lab Results Component Value Date CULTURE >100,000 CFU/mL Streptococcus constellatus 08/13/2023 CULTURE 50,000-100,000 CFU/mL Enterococcus faecalis 08/13/2023 CULTURE 3+ Escherichia coli 03/31/2023 CULTURE 2+ Serratia marcescens 03/31/2023 CULTURE 1+ Enterococcus faecalis 03/31/2023 IMAGING: CT ABDOMEN PELVIS W/O CONTRAST, 04/01/2023 FINDINGS: [...] blood products noted in left perinephric space. THERMITE BOMB LOADER shunt coiled in the dependant pelvis. Lymph [...] to ileus. Mild colonic stool burden. 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 Joyner), seen today to discuss new onset urinary incontinence. She previously did well with CIC 5 times perday with no incontinence or UTIs. UDS in 03/2023 showed capacity of 950 mL with no significant DO or incontinence and good compliance. There is some concern that she is not being catheterized at certain times of the day, which could certainly result in overflow incontinence. We discussed the importance of adhering to 5x per day CIC regimen and Tanisha, her legal guardian and test case developer, will follow up with family/caretakers. We will also proceed as follows: -UA/UC to ensure no residual infection. -Strict CIC regimen 5 times per day. Pt requires intermittent catheterization for 3 months or greater (lifetime) due to chronic urinary retention. -Continue once daily bladder irrigation. -Schedule urodynamics next available. If incontinence improves with the above measures, then cancelUDS. Lakshmi Wilhelm PA-C Department of Urology Virtual Visit Details Type of service: Video Visit Video Start Time: 8:29 AM Video End Time:8:55 AM Originating Location (pt. Location): Health system Distant Location (provider location): On-site Platform used for Video Visit: [employer] 40 minutes spent on the date of the encounter doing chart review, review of test results, interpretation of tests, patient visit, documentation, and discussion with other provider(s) documented in this encounter Nursing Notes * Jami Briones - 09/05/2023 8:30 AM CDT Is the patient currently in the state of [place]? YES Visit mode:VIDEO If the visit is dropped, the patient can be reconnected by: VIDEO VISIT: Text to cell phone: Telephone Information: Mobile Not on file. Will anyone else be joining the visit? NO (If patient encounters technical issues they should call [phone] :[phone]) How would you like to obtain your AVS? MyChart Are changes needed to the allergy or medication list? No Are refills needed on medications prescribed by this physician? Reason for visit: RECHECK Jami Rodriguezprecious VVF documented in this encounter Plan of Treatment Upcoming Encounters Date Type Department Care Team (Late st Contact Info) Description 11/26/2023 PRE VISIT [facility] [address] [phone] Alissa Perez PA-C [address] [place] [address] [phone] Previsit 12/08/2023 9:30 AM CDT Office Visit [facility] [address] [phone] [place] [address] [place] [address] Alissa Perez PA-C [address] [place] [address] [phone] documented as of this encounter Procedures Procedure Name Priority Date/Time Associated Diagnosis Comments UA MACROSCOPIC WITH REFLEX TO MICRO AND CULTURE Routine 09/08/2023 9:30 AM CDT Neurogenic bladder Continuous leakage of urine URINE MICROSCOPIC EXAM Routine 09/08/2023 9:30 AM CDT Neurogenic bladder Continuous leakage of urine URINE CULTURE Routine 09/08/2023 9:30 AM CDT Urinary incontinence, unspecified type documented in this encounter Results * (ABNORMAL) Urine Microscopic Exam (09/08/2023 9:30 AM CDT) Bacteria Urine Many(A) None Seen /HPF LNIDA 09/08/2023 11:54 AM CDT LABORATORY RBC Urine [...] MD LAB - URINE ORDERABL ES LABORATORY [facility] [address] [facility] (no room number, 1st floor of clinic) [place] [address], [facility] * (ABNORMAL) UA Macroscopic with reflex to Microscopic and Culture - Lab Collect (09/08/2023 9:30 AM CDT) Color Urine Yellow Colorless, Straw, Light Yellow, Yellow 09/08/2023 11:54 AM CDT LABORATORY Appearance Urine Cloudy(A) Clear 09/08/19 24 11:54 AM CDT LABORATORY Glucose Urine Negative Negative mg/dL 09/08/2023 11:54 AM T LABORATORY Bilirubin Urine Negative Negative 11:54 AM CDT LABORATORY Ketones Urine Negative Negative mg/dL 09/08/2023 11:54 AM CDT LABORATORY Specific [place] Urine 1.020 1.003 - 1.035 09/08/2023 11:54 [...] MD LAB - URINE ORDERABL ES LABORATORY [facility] [address] [facility] (no room number, 1st floor of clinic) [place] [address], [facility] * (ABNORMAL) Urine Culture Aerobic Bacterial (09/08/2023 9:30 AM CDT) Culture 50,000-100,000 CFU/mL Gram positive cocci(A) 09/09/2023 [...] MICRO GENE RAL ORDERABLES [facility]U IDD LABORATORY [facility] Inf. Diseases Diag. Lab [address] [facility], [address] [place] [address], [facility] documented in this encounter Visit Diagnoses Diagnosis Urinary incontinence, unspecified type- Primary Neurogenic bladder Neurogenic bladder, NOS Continuous leakage of urine Continuous leakage documented in this encounter Care Teams Loading Checker Relationship Specialty [place] [address] [place] [address] PCP - General 03/05/23 Carlos Joyner MD [address] [place] [address] Urology 12/09/19 Jadon Murray MD [facility] [address] [phone] Referring Physician Pediatric Surgery 12/09/19 Maru Villagomez, RN Registered Nurse 12/10/19 Ang Slade MD [address] [place] [address] Urology 04/24/20 Carlos Joyner MD [address] [place] [address] Assigned Surgical Provider 12/24/20 Ang Slade MD [address] [place] [address] 503125 Urology 12/18/22 Lakshmi Wilhelm PA-C [address] [place] [address] [phone] Physician Pharmacology Associate Urology 02/03/23 [place] [address] [place] [address] Assigned PCP 02/06/23 Alissa Perez PA-C [address] [place] [address] Physician Pharmacology Associate Surgery 09/04/23 Lakshmi Wilhelm PA-C [address] [place] [address] [phone] Physician Pharmacology Associate Urology 09/16/23 documented as of this encounter
--- OUTSIDE RECORDS SUMMARY | 2023-10-31 20:47 | XMS_ITS | Encounter Summary ---
Author Organization [place] Address [address] [place] [address] Care Team Providers Care Locker Room Clerk Name Role Phone Carlos Joyner MD Unavailable [phone] Jadon Murray MD Unavailable [phone] Maru Villagomez RN Unavailable Unavailable Ang Slade MD Unavailable [phone] Carlos Joyner MD Unavailable [phone] Ang Slade MD Unavailable [phone] Lakshmi Wilhelm-C Unavailable [phone] Heladio Willoughby MD Primary Care Provider [phone] Heladio Willoughby MD Unavailable Alissa Perez PA-C Unavailable [phone] LaLakshmi morales-C Unavailable [phone] Encounter Details Date Type Department Care Team (Late st Contact Info) Description 08/18/2023 MyC Medical Advice [facility] [address] [place] [address] Analisa Conner Social History Tobacco Use Types Packs/Day Years [...] [place] [facility] [address] [phone] Alissa Perez PA-C [address] [place] [address] [phone] Previsit 12/08/2023 9:30 AM CDT Office Visit [facility] [address] [phone] [place] [address] [place] [address] Alissa Perez PA-C [address] [place] [address] [phone] documented as of this encounter Visit Diagnoses Not on filedocumented in this encounter Care Teams Locker Room Clerk Relationship Specialty [place] [address] [address] [address] PCP - General 03/05/23 Carlos Joyner MD [address] [place] [address] [phone] Urology 12/09/19 Jadon Murray MD [facility] [address] [facility] 550 [place] [address] Referring Physician Pediatric Surgery 12/09/19 Maru Villagomez, RN Registered Nurse 12/10/19 Ang Slade MD [address] [place] [address] [phone] Urology 04/24/20 Carlos Joyner MD [address] [place] [address] [phone] Assigned Surgical Provider 12/24/20 Ang Slade MD [address] [place] [address] 090075 Urology 12/18/22 Lakshmi Wilhelm PA-C [address] [place] [address] [phone] Physician Air Cargo Specialist Urology 02/03/23 [place] [address] [place] [address] Assigned PCP 02/06/23 Alissa Perez PA-C [address] [place] [address] [phone] Physician Air Cargo Specialist Surgery 09/04/23 Lakshmi Wilhelm PA-C [address] [place] [address] 813285 Physician Air Cargo Specialist Urology 09/16/23 documented as of this encounter
--- OUTSIDE RECORDS SUMMARY | 2023-10-31 20:47 | XMS_ITS | Encounter Summary ---
Author Organization [place] Address [address] [place] [address] Care Team Providers Care Manager Data Center Name Role Phone Carlos Joyner MD Unavailable [phone] Jadon Murray MD Unavailable [phone] Maru Villagomez RN Unavailable Unavailable Ang Salde MD Unavailable [phone] Carlos Joyner MD Unavailable [phone] Ang Slade MD Unavailable [phone] Lakshmi Wilhelm-C Unavailable [phone] Heladio Willoughby MD Primary Care Provider [phone] Heladio Willoughby MD Unavailable Alissa Perez PA-C Unavailable [phone] LaLakshmi morales-C Unavailable Reason for Visit * Reason Onset Date Comments Prior Auth - Medication 09/03/2023 Gentamic in 480mg/l bladder irrigation (compounded)-primary INSURANCE PA APPROVED Encounter Details Date Type Department Care Team (Late st Contact Info) Description 09/03/2023 Telephone [facility] [address] 4th [place] [address] Carlos Joyner MD [address] [place] [address] Prior Auth - Medication (Gentamicin 480mg/l bladder irrigation (compounded)-primary INSURANCE PA APPROVED) Social History Tobacco Use Types Packs/Day Years [...] * Telephone Encounter - Jodi Whitting[place] - 09/08/2023 11:17 AM CDT Images from the original note were not included. Central Prior Authorization Team - Prior Authorization Approval Medication: COMPOUND [id number] IN Authorization Effective Date: 08/06/2023 Authorization Expiration Date: 09/04/2024 Approved Dose/Quantity: 900 ML Reference #: Insurance Company: [employer] [place] - Expected CoPay: $ CoPay Card Available: Financial Assistance Needed: Which Pharmacy is filling the prescription: [facility] - [place], [place] - [facility] [address] Pharmacy Notified: YES Patient Notified: YES pharmacy will notify when ready * Telephone Encounter - Jodi [place]itting[place] - 09/03/2023 4:58 PM CDT Images from the original note were not included. Central Prior Authorization Team - PA Initiation Medication: COMPOUND [id number] IN Insurance Company: [employer] [place] - Pharmacy Filling the Rx: [facility] - [place], [place] - [address] [facility] Filling Pharmacy Phone: Filling Pharmacy Fax: Start Date: 09/03/2023 * Telephone Encounter - Jodi Whittington - 09/03/2023 4:47 PM CDT Images from the original note were not included. Central Prior Authorization Team - Patient with dual insurance. Submit to Primary insurance documented in this encounter Plan of Treatment Upcoming Encounters Date Type Department Care Team (Late st Contact Info) Description 11/26/2023 PRE VISIT [facility] [address] [phone] Alissa Perez PA-C [address] [place], [place] [phone] Previsit 12/08/2023 9:30 AM CDT Office Visit [facility] [address] [address] [place] [address] [place] [address] Alissa Perez PA-C [address] [place], [place] [address] documented as of this encounter Visit Diagnoses Not on filedocumented in this encounter Care Teams Manager Data Center Relationship Specialty [place] [address] [place] [address] PCP - General 03/05/23 Carlos Joyner MD [address] [place] [address] Urology 12/09/19 Jadon Murray MD [facility] [address] [address] Referring Physician Pediatric Surgery 12/09/19 Maru Villagomez, OTILIO Registered Nurse 12/10/19 Ang Slade MD [address] [place] [address] Urology 04/24/20 Carlos Joyner MD [address] [place] [address] Assigned Surgical Provider 12/24/20 Ang Slade MD [address] [place] [address] Urology 12/18/22 Lakshmi Wilhelm PA-C [address] [place] [address] Physician Instructor Modeling Urology 02/03/23 [place] [address] [place] [address] Assigned PCP 02/06/23 Alissa Perez PA-C [address] [place] [address] Physician Instructor Modeling Surgery 09/04/23 Lakshmi Wilhelm PA-C [address] [place] [address] Physician Instructor Modeling Urology 09/16/23 documented as of this encounter
--- OUTSIDE RECORDS SUMMARY | 2023-10-31 20:47 | XMS_ITS | Encounter Summary ---
Author Organization [place] Address [address] [place] [address]. [place] [address] Care Team Providers Care Technical Writing Lead/Mgr Name Role Phone Carlos Joyner MD Unavailable [phone] Jadon Murray MD Unavailable [phone] Maru Villagomez RN Unavailable Unavailable Ang Slade MD Unavailable [phone] Carlos Joyner MD Unavailable [phone] Ang Slade MD Unavailable [phone] Lakshmi Wilhelm PA-C Unavailable [phone] Heladio Willoughby MD Primary Care Provider [phone] Heladio Willoughby MD Unavailable Reason for Visit * Reason Onset Date Comments wound care orders 08/29/2023 Referral 08/29/2023 [facility] 08/29/2023 Encounter Details Date Type Department Care Team (Late st Contact Info) Description 08/29/2023 Telephone [facility] [address] [place] [address] [place] [address] [place] [address] wound care orders; Referral; [facility] Social History Tobacco Use Types Packs/Day Years [...] encounter Miscellaneous Notes * Telephone Encounter - Kamla Roque RN - 08/29/2023 3:54 PM CDT Called Tanisha back and scheduled appt with Dr Heladio Willoughby for 09/02/23 (same day with approval from Dr Leija). Advised to be seen in UC sooner if develops any worsening symptoms or if she is concerned about dehydration. Tanisha verbalized understanding and agreeable to plan. Kamla Roque RN, BSN [facility] * Telephone Encounter - Heladio Willoughby MD - 08/29/2023 3:34 PM CDT Needs appt to discuss all items. Heladio Willoughby MD [facility] 08/29/2023 * Telephone Encounter - Aidee Hassan RN - 08/29/2023 1:41 PM CDT S-(situation): Tanisha, guardian calling to report that patient has open sores/skin breakdown in her genital area near her anus due to some loose stools and incontinence. Patient's day care aide family went to [place] with her for vacation and they all got sick. Returned home Friday but Laina was kept home yesterday and in bed due to loose stools as it was easier to clean her up per her nurse wound care report to Tanisha. B-(background): School nurse contacted guardian to report this and other concerns for UTI which urology will be addressing for the UTI symptoms. A-(assessment): skin breakdown in genital area near anus. [facility] nurse reports she was soaked with urine, she was cleaned up and a barrier cream was applied. Per nurse wound care some skin came off this morning with horacio-cares.Per Tanisha sounds like patient was very dehydrated as well. R-(recommendations): #1- Tanisha needing orders for skin breakdown in the genital/anal/back area (due to lying in bed all day yesterday with loose stools up her back). #2- Also wondering about plan of care going forward for the incontinence. #3- Tanisha also asking for a referral to [facility]. Please advise. Tanisha will coordinate everything. Aidee RN on 08/29/2023 at 2:07 PM documented in this encounter Plan of Treatment Upcoming Encounters Date Type Department Care Team (Late st Contact Info) Description 11/26/2023 PRE VISIT [facility] [address] [address] Alissa Perez PA-C [address] [place] [address] [phone] Previsit 12/08/2023 9:30 AM CDT Office Visit [facility] [address] [phone] [place] [address] [place] [address] Alissa Perez PA-C [address] [place] [address] documented as of this encounter Visit Diagnoses Not on filedocumented in this encounter Care Teams Technical Writing Lead/Mgr Relationship Specialty [place] [address] [place] [address] PCP - General 03/05/23 Carlos Joyner MD [address] [place] [address] [id number] Urology 12/09/19 Jadon Murray MD [facility] [address] [address] Referring Physician Pediatric Surgery 12/09/19 Maru Villagomez, RN Registered Nurse 12/10/19 Ang Slade MD [address] [place] [address] Urology 04/24/20 Carlos Joyner MD [address] [place] [address] [id number] Assigned Surgical Provider 12/24/20 Ang Slade MD [address] [address] Urology 12/18/22 Lakshmi Wilhelm PA-C 909 [place] [address] Physician Patient Intake Coordinator Urology 02/03/23 [place] [address] [place] [address] Assigned PCP 02/06/23 documented as of this encounter
--- OUTSIDE RECORDS SUMMARY | 2023-10-31 20:47 | XMS_ITS | Encounter Summary ---
Author Organization [facility] Address [address] [facility] [place] [address] Care Team Providers Care Career Consultant Name Role Phone Carlos Joyner MD Unavailable [phone] Jadon Murray MD Unavailable [phone] Maru Villagomez RN Unavailable Unavailable Ang Slade MD Unavailable [phone] Carlos Joyner MD Unavailable [phone] Ang Slade MD Unavailable [phone] Lakshmi Wilhelm PA-C Unavailable [phone] Heladio Willoughby MD Primary Care Provider [phone] Heladio Willoughby MD Unavailable Reason for Referral * Rehab Therapy Physical Therapy (Routine: Next available opening) - Referral NOT Required Specialty Diagnoses / Procedures Referred By Contac t Referred To Contact Diagnoses Paraplegia (H) [place] [address] [place] [address] [address] Referral ID Status Reason Start Date Expiration Date V isits Requested Visits Authorized [id number] Referral NOT Required 09/05/2023 09/04/2024 1 1 Question Answer Course of Action: Evaluation and Treatment Specialty Services: Per Associated Diagnosis Scheduling Instructions: [facility] will call you to coordinate your care as prescribed by your provider. If you don't hear from a construction representative within 2 business days, please call . Additional Information: Pool therapy Comments Please be aware that coverage of these services is subject to the terms and limitations of your health insurance plan. Call member services at your health plan with any benefit or coverage questions. [facility] will call you to coordinate your care as prescribed by your provider. If you don't hear from a construction representative within 2 business days, please call . * Consultation (Routine: Next available opening) - Referral NOT Required Specialty Diagnoses / Procedures [facility] To Contact Colon and Rectal Surgery Diagnoses [place] [address] [place] [address] Referral ID Status Reason Start Date Expiration Date V isits Requested Visits Authorized [id number] Referral NOT Required 09/03/2023 09/02/2024 1 1 Question Answer Reason for Referral: Rectal Bleeding Special Concerns: Other My Clinical Question Is: Hx of spina bifida, chronic constipation, use of Peristeen for bowels Scheduling Instructions: [facility] will call you to coordinate care as prescribed your provider. If you don? t hear from a construction representative within 2 business days, please call . Comments Please be aware that coverage of these services is subject to the terms and limitations of your health insurance plan. Call member services at your health plan with any benefit or coverage questions. [facility] will call you to coordinate care as prescribed your provider. If you don? t hear from a construction representative within 2 business days, please call . Reason for Visit * Reason Comments Incontinence Encounter Details Date Type Department Care Team (Late st Contact Info) Description 09/02/2023 11:00 AM CDT Office Visit [facility] [address] [place] [address] [place] [address] [place] [address] Diarrhea of presumed infectious origin (Primary Dx); Rectal bleeding; Continuous leakage of urine; Neurogenic bladder; Irregular heartbeat; control counseling; Paraplegia (H) Social History Tobacco Use Types Packs/Day Years [...] - - Weight 65.8 kg (145 lb) 09/02/2023 10:55 AM CDT Height - - Body Mass Index 30.31 05/05/2023 7:20 AM SOCIAL SCIENCE TEACHER documented in this encounter Progress Notes * Heladio Willoughby MD - 09/02/2023 11:00 AM CDT Assessment & Plan Diarrhea of presumed infectious origin Resolving. No longer with symptoms of dehydration. Continue to monitor. Rectal bleeding Episodes of rectal bleeding. Hx of constipation, using Peristeen system. exam with no obvious hemorrhoid/fissure. Referring to colorectal surgery team. - Adult Colorectal Surgery Film Examiner Referral Continuous leakage of urine Neurogenic bladder Has CIC routine. Now with new urinary incontinence. May be UTI 2/2 diarrhea/stool in combination with dehydration. Will collect UA for UTI. Follow up with Urology on Friday as already scheduled. - UA Macroscopic with reflex to Microscopic and Culture - Lab Collect Irregular heartbeat Per home care nurse. EKG showing sinus arrhythmia. Benign. - EKG 12-lead complete w/read - Clinics control counseling - HCG qualitative urine Paraplegia (H) Requesting pool therapy through [facility]. Placed order. - Physical Therapy Film Examiner Referral BMI Estimated body mass index is 30.31 kg/m?? as calculated from the following: Height as of 05/05/23: 1.473 m (4' 10). Weight as of this encounter: 65.8 kg (145 lb). Follow up in 6 months Heladio Willoughby MD [facility] 09/05/2023 Yared Marina is a 22 year old, presenting for the following health issues: Incontinence 09/02/2023 10:54 AM Additional Questions Roomed by jacques whittaker History of Present Illness Reason for visit: New wounds near anus, extreme loose stool, Dehydration, Referral Request for PoolTherapy & Bed Rails Symptom onset: 1-2 weeks ago Symptoms include: Frequent loose stools, Extreme Dehydration, New wounds near anus (from loose stool or Peristeen BM system - unsure) and diaper rash Symptom intensity: Severe Symptom progression: Staying the same Had these symptoms before: Yes Has tried/received treatment for these symptoms: Yes Previous treatment was successful: Yes Prior treatment description: Topical barrier cream for urine leakage and wound care[facility] with bandages, frequent brief changing She eats 2-3 servings of fruits and vegetables daily.She consumes 1 sweetened beverage(s) daily.Sheexercises with enough effort to increase her heart rate 9 or less minutes per day. She exercises with enough effort to increase her heart rate 3 or less days per week. She is taking medications regularly. Diarrhea Loose stools starting on 08/23/23 while in vehicle on the way home from [place]. Is overall improving, now is very soft. Not running diarrhea anymore. No Bms today yet. Had only one BM yesterday, three the day prior to that. Before that was 1-5 times. No abdominal pain. No nausea or vomiting. No blood in the stools. Caregiver also with recent GI illness (food poisoning but only vomited for 1 dy) Is now hydrating better. Yesterday drank a full large cup at school. Drinks 2 large cups per day typically. Feels good today. Anal skin breakdown Diarrhea has caused few small areas of skin breakdown. Then on Friday, nurse call to note there was a tear near the anus. They are wondering if this is from?compaction, peristeen system used every evening. Maybe could be due to Peristeen system use? Patient feels safe at home and denies any sexual abuse or unwanted touching. Urinary incontinence Shortly after the diarrhea started, she developed urinary incontinence. She normally does not have urinary incontinence and requires CIC. She has been receiving her normal CIC but incontinence brief soaked with urine afterwards. They do follow up Urology and have an upcoming appointment on Friday for this issue. Does have hx of UTI prior to leaving for [place]. Was placed on Bactrim initially but had to transition to amoxicillin which was completed on the . Irregular HR Noted by home care nurse who was concerned. Pulse was noted to be 57 at that time. Patient without any symptoms besides diarrhea at that time. PT Interested in pool therapy - through [facility] in [facility] Home care nurse was requesting an order for bed rails. Patient does not want bed rails. She cannot roll over in bed thus patient, caregiver and guardian do not feel this is necessary either. Wanted to make sure this was ok. Has never had issues in the past. Did have episode of arm getting stuck between bed and the wall/chair or something but nothing otherthan that. Clinic Administered Medication Documentation Patient was given Depo Provera. Prior to medication administration, verified patient's identity using patient???s name and date of . Please see MAR and medication order for additional information. Patient instructed to remain in clinic for 15 minutes and report any adverse reaction to staff immediately. Vial/Syringe: Single dose vial. Was entire vial of medication used? Yes NEXT INJECTION DUE: 11/18/23 - 12/16/23 Objective BP 116/64 (BP Location: Right arm, Patient Position: Sitting, Cuff Size: Adult Regular) Pulse 97 Temp 98.4 ??F (36.9 ??C) (Oral) Resp 20 Wt 65.8 kg (145 lb) SpO2 97% BMI 30.31 kg/m?? Body mass index is 30.31 kg/m??. Physical Exam GENERAL: healthy, alert and no distress HEAD: Normocephalic, atraumatic. EYES: Normal conjunctivae, sclera. RESP: lungs clear to auscultation - no rales, rhonchi or wheezes CV: irregular rate and rhythm, normal S1 S2, no murmur, click, rub or gallop. No peripheral swelling noted. ABDOMEN: soft, no TTP x4 quadrants. No hepatomegaly or masses appreciated. BS normactive. : Urinary leaking present during exam. Few <1cm superficial erosions located on skin surrounding anus. Anus is irritated appearing, no obvious hemorrhoids or fissures appreciated. EXT: Warm and well perfused. NEURO: CNII-XII grossly intact. No focal deficits. PSYCH: Groomed, dressed appropriately for weather. Normal mood with consistent affect. EKG: Indication: Irregular heart beat Impression: Sinus arrhythmia. No prior EKG for comparison. Signed Electronically by: Heladio Willoughby MD documented in this encounter Plan of Treatment Upcoming Encounters Date Type Department Care Team (Late st Contact Info) Description 11/26/2023 PRE VISIT [facility] [address] [place] [address] Alissa Perez PA-C [address] [place] [address] Previsit 12/08/2023 9:30 AM CDT Office Visit [facility] [address] 4[address] [place] [address] [place] [address] [place] [address] Alissa Perez PA-C [address] [place] [address] Scheduled Referrals Name Type Priority Associated Diagnoses Orde r Schedule Adult Colorectal Surgery Film Examiner Referral Referral Routine: Next available opening Rectal bleeding Expected: 09/03/2023 (Approximate), Expires: 09/02/2024 Physical Therapy Film Examiner Referral Referral Routine: Next available opening Paraplegia (H) Expected: 09/05/2023 (Approximate), Expires: 09/04/2024 documented as of this encounter Procedures Procedure Name Priority Date/Time Associated Diagnosis Comments HCG QUALITATIVE URINE Routine 09/02/2023 12:13 PM CDT control counseling EKG 12-LEAD COMPLETE W/READ - CLINICS Routine 09/02/2023 12:11 PM CDT Irregular heartbeat documented in this encounter Results * (ABNORMAL) UA Macroscopic with reflex to [...] mg/dL 09/08/2023 11:54 AM CDT LABORATORY Specific [place]ester Urine 1.020 1.003 - 1.035 09/08/2023 11:54 [...] Willoughby MD LAB - URINE ORDERABL ES Performing Organization Address City[facility]/ZIP Co de Phone Number LABORATORY [facility] [address] [facility] (no room number, 1st floor of clinic) [place] [address], [place] * HCG qualitative urine (09/02/2023 12:13 PM CDT) hCG Urine Qualitative Negative Negative LINDA 09/02/2023 12:19 PM CDT LABORATORY Comment:This test is for scr eening purposes. Results should be interpreted along with the clinical picture. Confirmation testing is available if warranted by ordering [id number], HCG Quantitative . Urine URINE SPECIMEN / Unknown Non-blood Collection / Unknown 09/02/2023 12:13 PM CDT 09/02/2023 12:13 PM CDT Heladio Willoughby MD LAB - URINE ORDERABL ES LABORATORY [facility] [address] [facility] (no room number, 1st floor of clinic) [place] [address], [place] * EKG 12-lead complete w/read - Clinics (09/02/2023 12:11 PM CDT) Heladio Willoughby MD ECG ORDERABLES documented in this encounter Visit Diagnoses Diagnosis Diarrhea of presumed infectious origin- Primary Rectal bleeding Hemorrhage of rectum and anus Continuous leakage of urine Continuous leakage Neurogenic bladder Neurogenic bladder, NOS Irregular heartbeat Cardiac dysrhythmia, unspecified control counseling General counseling for initiation of other contraceptive measures Paraplegia (H) Paraplegia documented in this encounter Administered Medications Active Administered Medications - up to 3 most recent administrations Medication Order MAR Action Action Date Dose Rate Site medroxyPROGESTERone (DEPO-PROVERA) injection 150 mg 150 mg, Intramuscular, EVERY 3 MONTHS, First dose on Fri04/16/23 at 1730, For 4 doses $Given by Other 09/02/2023 12:19 PM CDT 150 mg Right Deltoid $Given 04/16/2023 5:32 PM SOCIAL SCIENCE TEACHER 150 mg Ri ght Ventrogluteal documented in this encounter Care Teams Career Consultant Relationship Specialty [place] [address] [place] [address] PCP - General 03/05/23 Carlos Joyner MD [address] [place] [address] [id number] Urology 12/09/19 Jadon Murray MD [facility] [address] [facility] [address] [place], [place] [id number] Referring Physician Pediatric Surgery 12/09/19 Maru Villagomez, RN Registered Nurse 12/10/19 Ang Slade MD [address] [place] [address] [address] [place], [place] [id number] Urology 04/24/20 Carlos Joyner MD [address] [place] [address] [id number] Assigned Surgical Provider 12/24/20 Ang Slade MD [address] [facility] [address] [place], [place] 409335 Urology 12/18/22 Lakshmi Wilhelm PA-C [address] [place] [address] [id number] Physician Actuarial Science Teacher Urology 02/03/23 [place] [address] [place] [address] Assigned PCP 02/06/23 documented as of this encounter
--- OUTSIDE RECORDS SUMMARY | 2023-10-31 20:48 | XMS_ITS | Encounter Summary ---
Author Organization [place] Address [address] [place] [address] Care Team Providers Care Egg Buyer Name Role Phone Carlos Joyner MD Unavailable [phone] Jadon Murray MD Unavailable [phone] Maru Villagomez RN Unavailable Unavailable Ignacia Duran MD Primary Care Provider [phone] Ang Slade MD Unavailable [phone] Carlos Joyner MD Unavailable [phone] Ang Slade MD Unavailable [phone] Lakshmi WilhelmC Unavailable [phone] Heladio Willoughby MD Primary Care Provider [phone] Heladio Willoughby MD Unavailable Alissa Perez-C Unavailable [phone] Lakshmi WilhelmC Unavailable [phone] Encounter Details Date Type Department Care Team (Late st Contact Info) Description 12/30/2022 [facility] [facility] [address] [place] [address] Analisa Palacio RN Social History Tobacco Use Types Packs/Day Years Used Date Smoking Tobacco: Never Smokeless Tobacco: Never Alcohol Use Standard Drinks/Week Comments Not Currently 0 (1 standard drink = 0.6 oz pur e alcohol) PHQ-2 Answer Date Recorded PHQ-2 Score 0 04/02/2022 Sex and Gender Information Value Date Recorded Sex Assigned at Not on file Gender Identity Not on file Sexual Orientation Not on file COVID-19 Exposure Response Date Recorded In the last 10 days, have yo u been in contact with someone who was confirmed or suspected to have Coronavirus/COVID-19? No / Unsure 12/11/2022 8:56 AM CDT documented as of this encounter Plan of Treatment Upcoming Encounters Date Type Department Care Team (Late st Contact Info) Description 11/26/2023 PRE VISIT [facility] [address] [phone] Alissa Perez PA-C [address] [place] [address] 946785 Previsit 12/08/2023 9:30 AM CDT Office Visit [facility] [address] [phone] [place] [address] [place] [address] Alissa Perez PA-C [address] [place] [address] 656595 documented as of this encounter Visit Diagnoses Not on filedocumented in this encounter Additional Health Concerns Infection Onset Date Last Indicated Resolved Time MRSA Comment:Added from external infection. Pt has had Staph infections but never MRSA from Care everywhere chart review. Removing MRSA .1406/17/2019 02/06/2023 9:41 AM C DT documented as of this encounter Care Teams Egg Buyer Relationship Specialty Start Date End Date Ignacia Duran MD PCP - General Pediatrics 01/20/20 03/04/23 [place] [address] [address] [address] PCP - General 03/05/23 Carlos Joyner MD [address] [place] [address] Urology 12/09/19 Jadon Murray MD [facility] 2530 [facility] 550 [place] [address] Referring Physician Pediatric Surgery 12/09/19 Maru Villagomez, RN Registered Nurse 12/10/19 Ang Slade MD 420 [facility] 394 [place], [place] 574085 Urology 04/24/20 Carlos Joyner MD [address] [place] [address] 180035 Assigned Surgical Provider 12/24/20 Ang Slade MD 420 [facility] 394 [place], [place] 608375 Urology 12/18/22 Lakshmi Wilhelm PA-C [address] [place] [address] 423565 Physician International Travel Consultant Urology 02/03/23 [place] [address] [facility] [place] [address] Assigned PCP 02/06/23 Alissa Perez PA-C [address] [place] [address] 663315 Physician International Travel Consultant Surgery 09/04/23 Lakshmi Wilhelm PA-C 9 [place] [address] Physician International Travel Consultant Urology 09/16/23 documented as of this encounter
--- OUTSIDE RECORDS SUMMARY | 2023-10-31 20:48 | XMS_ITS | Encounter Summary ---
Author Organization [place] Address [address] [place] [address] Care Team Providers Care Renewable Energy Technician Name Role Phone Carlos Joyner MD Unavailable [phone] Jadon Murray MD Unavailable [phone] Maru Villagomez RN Unavailable Unavailable Ignacia Duran MD Primary Care Provider [phone] Ang Slade MD Unavailable [phone] Carlos Joyner MD Unavailable [phone] Annalise Orta-C Unavailable [phone] Ang Slade MD Unavailable [phone] Lakshmi Wilhelm-C Unavailable [phone] Heladio Willoughby MD Primary Care Provider [phone] Heladio Willoughby MD Unavailable Alissa Perez PA-C Unavailable [phone] Lakshmi Wilhelm-C Unavailable [phone] Encounter Details Date Type Department Care Team (Late st Contact Info) Description 11/07/2021 [facility] [address] [address] Analisa Palacio, OTILIO Social History Tobacco Use Types Packs/Day Years Used Date Smoking Tobacco: Never Smokeless Tobacco: Never Alcohol Use Standard Drinks/Week Comments Not Currently 0 (1 standard drink = 0.6 oz pur e alcohol) PHQ-2 Answer Date Recorded PHQ-2 Score 0 10/31/2021 Sex and Gender Information Value Date Recorded Sex Assigned at Not on file Gender Identity Not on file Sexual Orientation Not on file COVID-19 Exposure Response Date Recorded In the last 10 days, have yo u been in contact with someone who was confirmed or suspected to have Coronavirus/COVID-19? No / Unsure 11/08/2021 1:12 PM CDT documented as of this encounter Plan of Treatment Upcoming Encounters Date Type Department Care Team (Late st Contact Info) Description 11/26/2023 PRE VISIT [facility] [address] [phone] Alissa Perez PA-C [address] [place] [address] 056375 Previsit 12/08/2023 9:30 AM CDT Office Visit [facility] [address] [phone] [place] [address] [address] [address] Alissa Perez PA-C [address] [place] [address] documented as of this encounter Visit Diagnoses Not on filedocumented in this encounter Additional Health Concerns Infection Onset Date Last Indicated Resolved Time MRSA Comment:Added from external infection. Pt has had Staph infections but never MRSA from Care everywhere chart review. Removing MRSA 02.06.23 06/17/2019 02/06/2023 9:41 AM C DT documented as of this encounter Care Teams Renewable Energy Technician Relationship Specialty Start Date End Date Ignacia Duran MD PCP - General Pediatrics 01/20/20 03/04/23 [place] [address] [address] [address] PCP - General 03/05/23 Carlos Joyner MD [address] [place] [address] Urology 12/09/19 Jadon Murray MD [facility] [address] [address] Referring Physician Pediatric Surgery 12/09/19 Maru Villagomez, RN Registered Nurse 12/10/19 Ang Slade MD [address] [place] [address] Urology 04/24/20 Carlos Joyner MD [address] [place] [address] Assigned Surgical Provider 12/24/20 Annalise Orta PA-C 5200 [place] [address] Assigned Cancer Care Provider 05/13/21 11/01/22 Ang Slade MD [address] [place] [address] Urology 12/18/22 Lakshmi Wilhelm PA-C [address] [place] [address] Physician Metal Die Finisher Urology 02/03/23 [place] [address] [place] [address] Assigned PCP 02/06/23 Alissa Perez PA-C [address] [place] [address] Physician Metal Die Finisher Surgery 09/04/23 Lakshmi Wilhelm PA-C [address] [place] [address] Physician Metal Die Finisher Urology 09/16/23 documented as of this encounter
--- OUTSIDE RECORDS SUMMARY | 2023-10-31 20:48 | XMS_ITS | Encounter Summary ---
Author Organization [place] Address [facility] [place] [address] Care Team Providers Care Industrial Renderer Name Role Phone Carlos Joyner MD Unavailable [phone] Jadon Murray MD Unavailable [phone] Maru Villagomez RN Unavailable Unavailable Ang Slade MD Unavailable [phone] Carlos Joyner MD Unavailable [phone] Ang Slade MD Unavailable [phone] Lakshmi Wilhelm PA-C Unavailable [phone] Heladio Willoughby MD Primary Care Provider [phone] Heladio Willoughby MD Unavailable Encounter Details Date Type Department Care Team (Late st Contact Info) Description 08/05/2023 Medical Correspondence [facility] [address] [place] [address] Scan, Non-Provider Social History Tobacco Use Types Packs/Day Years [...] Upcoming Encounters Date Type Department Care Team ([facility] st Contact Info) Description 11/26/2023 PRE VISIT [facility] [address] [phone] Alissa Perez PA-C [address] [place] [address] Previsit 12/08/2023 9:30 AM CDT Office Visit [facility] [address] [phone] [place] [address] [place] [address] Alissa Perez PA-C 500 [place], [place] 605725 documented as of this encounter Visit Diagnoses Not on filedocumented in this encounter Care Teams Industrial Renderer Relationship Specialty Start [place] [address] [place] [address] PCP - General 03/05/23 Carlos Joyner MD 9 [place] [address] Urology 12/09/19 Jadon Murray MD [facility] 2530 [facility] 550 [place] [address] Referring Physician Pediatric Surgery 12/09/19 Maru Villagomez, RN Registered Nurse 12/10/19 Ang Slade MD 420 [facility] 394 [place] [address] Urology 04/24/20 Carlos Joyner MD 9 [place] [address] Assigned Surgical Provider 12/24/20 Ang Slade MD 420 [facility] 394 [place] [address] Urology 12/18/22 Lakshmi Wilhelm PA-C 9 [place] [address] Physician Collet Driller Urology 02/03/23 [place] [address] [place] [address] Assigned PCP 02/06/23 documented as of this encounter
--- OUTSIDE RECORDS SUMMARY | 2023-10-31 20:48 | XMS_ITS | Encounter Summary ---
Author Organization [place] Address [address] [place] [address] Care Team Providers Care Hydrographical Technical Officer Name Role Phone Carlos Joyner MD Unavailable [phone] Jadon Murray MD Unavailable [phone] Maru Villagomez RN Unavailable Unavailable Ignacia Duran MD Primary Care Provider Ang Slade MD Unavailable [phone] Carlos Joyner MD Unavailable [phone] Annalise Orta-C Unavailable [phone] Ang Slade MD Unavailable [phone] Lakshmi Wilhelm-C Unavailable [phone] Heladio Willoughby MD Primary Care Provider [phone] Heladio Willoughby MD Unavailable Alissa Perez PA-C Unavailable [phone] Lakshmi Wilhelm-C Unavailable [phone] Encounter Details Date Type Department Care Team (Late st Contact Info) Description 07/19/2021 [facility] [address] [place] [address] Shyann Rehman Social History Tobacco Use Types Packs/Day Years Used Date Smoking Tobacco: Never Smokeless Tobacco: Never PHQ-2 Answer Date Recorded PHQ-2 Score 0 05/03/2021 Sex and Gender Information Value Date Recorded Sex Assigned at Not on file Gender Identity Not on file Sexual Orientation Not on file COVID-19 Exposure Response Date Recorded In the last month, have you been in contact with someone who was confirmed or suspected to have Coronavirus / COVID-19? No / Unsure 06/19/2021 11:16 AM MANAGER FIELD INVESTIGATIONS documented as of this encounter Plan of Treatment Upcoming Encounters Date Type Department Care Team (Late st Contact Info) Description 11/26/2023 PRE VISIT [facility] [address] [phone] Alissa Perez PA-C [address] [place] [address] 105725 Previsit 12/08/2023 9:30 AM CDT Office Visit [facility] [address] [phone] [place] [address] [place] [address] Alissa Perez PA-C [address] [place] [address] 938685 documented as of this encounter Visit Diagnoses Not on filedocumented in this encounter Additional Health Concerns Infection Onset Date Last Indicated Resolved Time MRSA Comment:Added from external infection. Pt has had Staph infections but never MRSA from Care everywhere chart review. Removing MRSA 02.06.23 06/17/2019 02/06/2023 9:41 AM C DT documented as of this encounter Care Teams Hydrographical Technical Officer Relationship Specialty Start Date End Date Ignacia Duran MD PCP - General Pediatrics 01/20/20 03/04/23 [place] [address] [address] [address] PCP - General 03/05/23 Carlos Joyner MD [address] [place] [address] Urology 12/09/19 Jadon Murray MD [facility] [address] [facility] 550 [place] [address] Referring Physician Pediatric Surgery 12/09/19 Maru Villagomez, RN Registered Nurse 12/10/19 Ang Slade MD [address] [place] [address] Urology 04/24/20 Carlos Joyner MD [address] [place] [address] Assigned Surgical Provider 12/24/20 Annalise Orta PA-C 5200 [place] [address] Assigned Cancer Care Provider 05/13/21 11/01/22 Ang Slade MD [address] [place] [address] Urology 12/18/22 Lakshmi Wilhelm PA-C [address] [place] [address] 225325 Physician Pipe Insulator Helper Urology 02/03/23 [place] [address] [place] [address] Assigned PCP 02/06/23 Alissa Perez PA-C [address] [place] [address] 330015 Physician Pipe Insulator Helper Surgery 09/04/23 Lakshmi Wilhelm PA-C [address] [place] [address] Physician Pipe Insulator Helper Urology 09/16/23 documented as of this encounter
--- OUTSIDE RECORDS SUMMARY | 2023-10-31 20:48 | XMS_ITS | Encounter Summary ---
Author Organization [place] Address [address] [place] [address] Care Team Providers Care Telephone Diaphragm Assembler Name Role Phone Carlos Joyner MD Unavailable [phone] Jadon Murray MD Unavailable [phone] Maru Villagomez RN Unavailable Unavailable Ang Slade MD Unavailable [phone] Carlos Joyner MD Unavailable [phone] Ang Slade MD Unavailable [phone] Lakshmi Wilhelm-C Unavailable [phone] Heladio Willoughby MD Primary Care Provider [phone] Heladio Willoughby MD Unavailable Alissa Perez PA-C Unavailable [phone] LaLakshmi morales-C Unavailable [phone] Encounter Details Date Type Department Care Team (Late st Contact Info) Description 07/01/2023 MyC Medical Advice [facility] [address] [place] [address] Joao Arceo MA Social History Tobacco Use Types Packs/Day Years [...] Contact Info) Description 11/26/2023 PRE VISIT [facility]al Surgery Clinic [address] [phone] Alissa Perez PA-C 500 [place], [place] 202665 Previsit 12/08/2023 9:30 AM CDT Office Visit [facility] [address] [phone] [place] [address] [place] [address] Alissa Perez PA-C 500 [place], [place] 078375 documented as of this encounter Visit Diagnoses Not on filedocumented in this encounter Care Teams Telephone Diaphragm Assembler Relationship Specialty Start [place] [address] [place] [address] PCP - General 03/05/23 Carlos Joyner MD [address] [place] [address] Urology 12/09/19 Jadon Murray MD [facility] 2530 [facility] 550 [place] [address] Referring Physician Pediatric Surgery 12/09/19 Maru Villagomze, OTILIO Registered Nurse 12/10/19 Ang Slade MD [address] [place] [address] 021665 Urology 04/24/20 Carlos Joyner MD [address] [place] [address] 145755 Assigned Surgical Provider 12/24/20 Ang Slade MD [address] [place] [address] 898125 Urology 12/18/22 Lakshmi Wilhelm PA-C [address] [place] [address] 597615 Physician Transport Specialist Urology 02/03/23 [place] [address] [place] [address] Assigned PCP 02/06/23 Alissa Perez PA-C [address] [place] [address] Physician Transport Specialist Surgery 09/04/23 Lakshmi Wilhelm PA-C 9 [place] [address] Physician Transport Specialist Urology 09/16/23 documented as of this encounter
--- OUTSIDE RECORDS SUMMARY | 2023-10-31 20:48 | XMS_ITS | Encounter Summary ---
Author Organization [place] Address [address] [place] [address] Care Team Providers Care Gift Wrapper Name Role Phone Carlos Joyner MD Unavailable [phone] Jadon Murray MD Unavailable [phone] Maru Villagomez RN Unavailable Unavailable Ang Slade MD Unavailable [phone] Carlos Joyner MD Unavailable [phone] Ang Slade MD Unavailable [phone] Lakshmi Wilhelm PA-C Unavailable [phone] Heladio Willoughby MD Primary Care Provider [phone] Heladio Willoughby MD Unavailable Reason for Visit * Reason Comments Forms Orders Encounter Details Date Type Department Care Team (Late st Contact Info) Description 08/01/2023 Documentation Only [facility] [address] [place] [address] Carlos Joyner MD [address] [place] [address] [phone] Forms; Orders Social History Tobacco Use Types [...] as of this encounter Progress Notes * Danielle Cervantes - 08/01/2023 2:36 PM CST Type of Form Received: Order ([facility]) Form Received (Date) 08/01/23 Form Filled out Yes, date 08/01/23 Placed in provider folder Yes Received Completed forms Yes Faxed Forms Faxed To: [facility] Sent to HIM (Date) 08/05/23 documented in this encounter Plan of Treatment Upcoming Encounters Date Type Department Care Team (Late st Contact Info) Description 11/26/2023 PRE VISIT [facility] [address] [phone] Alissa Perez PA-C [address] [place] [address] Previsit 12/08/2023 9:30 AM CDT Office Visit [facility] [address] [phone] [place] [address] [place] [address] Alissa Perez PA-C [address] [place] [address] 858335 documented as of this encounter Visit Diagnoses Not on filedocumented in this encounter Care Teams Gift Wrapper Relationship Specialty Start [place] [address] [place] [address] PCP - General 03/05/23 Carlos Joyner MD [address] [place] [address] 329875 Urology 12/09/19 Jadon Murray MD [facility] [address] [address] Referring Physician Pediatric Surgery 12/09/19 Maru Villagomez, RN Registered Nurse 12/10/19 Ang Slade MD [address] [place] [address] Urology 04/24/20 Carlos Joyner MD [address] [place] [address] 333615 Assigned Surgical Provider 12/24/20 Ang Slade MD [address] [address] Urology 12/18/22 Lakshmi Wilhelm PA-C 909 [place] [address] Physician Lei Seller Urology 02/03/23 [place] [address] [place] [address] Assigned PCP 02/06/23 documented as of this encounter
--- OUTSIDE RECORDS SUMMARY | 2023-10-31 20:48 | XMS_ITS | Encounter Summary ---
Author Organization [place] Address [facility] [place] [address] Care Team Providers Care Ribbon Sweatband Operator Name Role Phone Carlos Joyner MD Unavailable [phone] Jadon Murray MD Unavailable [phone] Maru Villagomez RN Unavailable Unavailable Ang Slade MD Unavailable [phone] Carlos Joyner MD Unavailable +[phone] Ang Slade MD Unavailable [phone] Lakshmi Wilhelm-C Unavailable [phone] Heladio Willoughby MD Primary Care Provider [phone] Heladio Willoughby MD Unavailable Alissa Perez PA-C Unavailable [phone] LaLakshmi morales-C Unavailable [phone] Encounter Details Date Type Department Care Team (Late st Contact Info) Description 03/27/2023 MyC Medical Advice [facility] PREOP/PHASE II 2450 [place] [phone] Lisette Salinas RN Social History Tobacco Use Types Packs/Day Years Used Date Smoking Tobacco: Never Smokeless Tobacco: Never Alcohol Use Standard Drinks/Week Comments Not Currently 0 (1 standard drink = 0.6 oz pur e alcohol) PHQ-2 Answer Date Recorded PHQ-2 Score 0 04/02/2022 Adolescent Education Answer Date Record ed Getting School Help Needed Not on file 02/15 Food Insecurity Answer Date Recorded Within the past 12 months, d id you worry that your food would run out before you got money to buy more? No 02/26/2023 Within the past 12 months, d id the food you bought just not last and you didn? t have money to get more? No 02/26/2023 Housing Stability Answer Date Recorded Do you have housing? Yes 02/26/2023 Are you worried about losing your housing? No 02/26/2023 Financial Resource Strain Answer Date R ecorded Within the past 12 months, h ave you or your family members you live with been unable to get utilities (heat, electricity) when it was really needed? No 02/26/2023 Transportation Needs Answer Date Record ed Within the past 12 months, h as lack of transportation kept you from medical appointments, getting your medicines, non-medical meetings or appointments, work, or from getting things that you need? No 02/26/2023 Sex and Gender Information Value Date Recorded Sex Assigned at Not on file Gender Identity Not on file Sexual Orientation Not on file COVID-19 Exposure Response Date Recorded In the last 10 days, have yo u been in contact with someone who was confirmed or suspected to have Coronavirus/COVID-19? No / Unsure 02/26/2023 10:28 AM CDT documented as of this encounter Plan of Treatment Upcoming Encounters Date Type Department Care Team (Late st Contact Info) Description 11/26/2023 PRE VISIT [facility] [address] [phone] Alissa Perez PA-C 500 [place], [place] 426[address] Previsit 12/08/2023 9:30 AM CDT Office Visit [facility] [address] [address] [place] [address] [place] [address] Alissa Perez PA-C 500 [place], [place] 182785 documented as of this encounter Visit Diagnoses Not on filedocumented in this encounter Care Teams Ribbon Sweatband Operator Relationship Specialty Start [place] [address] [place] [address] PCP - General 03/05/23 Carlos Joyner MD [address] [place] [address] Urology 12/09/19 Jadon Murray MD [facility] [address] [address] Referring Physician Pediatric Surgery 12/09/19 Maru Villagomez, OTILIO Registered Nurse 12/10/19 Ang Slade MD [address] [place] [address] Urology 04/24/20 Carlos Joyner MD [address] [place] [address] Assigned Surgical Provider 12/24/20 Ang Slade MD [address] [place] [address] Urology 12/18/22 Lakshmi Wilhelm PA-C [address] [place] [address] Physician Chief Of Harbor Patrol Urology 02/03/23 [place] [address] [place] [address] Assigned PCP 02/06/23 Alissa Perez PA-C [address] [place] [address] Physician Chief Of Harbor [employer] Surgery 09/04/23 Lakshmi Wilhelm PA-C [address] [place] [address] Physician Chief Of Harbor Patrol Urology 09/16/23 documented as of this encounter
--- OUTSIDE RECORDS SUMMARY | 2023-10-31 20:48 | XMS_ITS | Encounter Summary ---
Author Organization [place] Address [address] [place] [address] 53734 Care Team Providers Care Instrument Fitter Name Role Phone Carlos Joyner MD Unavailable [phone] Jadon Murray MD Unavailable [phone] Maru Villagomez RN Unavailable Unavailable Ignacia Duran MD Primary Care Provider Ang Slade MD Unavailable [phone] Carlos Joyner MD Unavailable [phone] Annalise Orta-C Unavailable Ang Slade MD Unavailable Lakshmi Wilhelm-C Unavailable [phone] Heladio Willoughby MD Primary Care Provider [phone] Heladio Willoughby MD Unavailable Alissa Perez PA-C Unavailable [phone] Lakshmi Wilhelm-Juan A Unavailable Reason for Visit * Reason Onset Date Comments Orders 01/01/2022 Syringes - 35 an d 60 ml requested Encounter Details Date Type Department Care Team (Late st Contact Info) Description 01/01/2022 [facility] [address] 4th [place] [address] Carlos Joyner MD [address] [place] [address] Orders (Syringes - 35 and 60 ml requested) Social History Tobacco Use Types Packs/Day Years [...] Recorded In the last 10 days, have ivelisse cervnates been in contact with someone who was confirmed or suspected to have Coronavirus/COVID-19? No / Unsure 01/01/2022 12:18 PM CDT documented as of this encounter Miscellaneous Notes * Telephone Encounter - Sarika Gonsalez - 01/07/2022 3:56 PM CDT Images from the original note were not included. Analisa Palacio RN You; Sharon Mckeon CMA; Mohini Diego RN; Tani Olivares, EMT 3 days ago AM Sarika would you look into this? You will have to call her home support person, Aleica, or send a mychart. Alecia is her caregiver and reads the mycharts Thank you!! Analisa Message text Sharon Mckeon CMA Masaisai, Basil, GREGORIA 6 days ago [facility] Can you place the orders? I don't know the amount she needs. Tani placed the order on 01/04 * Telephone Encounter - Roopa Hampton - 01/01/2022 3:42 PM CDT Health Call Center Phone Message May a detailed message be left on voicemail: yes Reason for Call: Order(s): Other: Reason for requested: Syringes - 35 ml and 60 ml syringes needed Date needed: RUPA Provider name: Anya Please fax order to [facility] at [phone]. Thank you. Action Taken: Other: Urology Travel Screening: Not Applicable documented in this encounter Plan of Treatment Upcoming Encounters Date Type Department Care Team (Late st Contact Info) Description 11/26/2023 PRE VISIT [facility] [address] [phone] Alissa Perez PA-C 500 [place], [place] 467965 Previsit 12/08/2023 9:30 AM CDT Office Visit [facility] Colon and Rectal Surgery [address] [phone] [place] [address] [place] [place], [place] 19865[address] Alissa Perez PA-C [address] [place], [place] 077645 documented as of this encounter Visit Diagnoses Not on filedocumented in this encounter Additional Health Concerns Infection Onset Date Last Indicated Resolved Time MRSA Comment:Added from external infection. Pt has had Staph infections but never MRSA from Care everywhere chart review. Removing MRSA 02.06.23 06/17/2019 02/06/2023 9:41 AM C DT documented as of this encounter Care Teams Instrument Fitter Relationship Specialty Start Date End Date Ignacia Duran MD PCP - General Pediatrics 01/20/20 03/04/23 [place] [address] [place] [id number] PCP - General 03/05/23 Carlos Joyner MD [address] [place] [address] 28168 Urology 12/09/19 Jadon Murray MD [facility] 2530 [facility] [address] [place], [place] [id number] Referring Physician Pediatric Surgery 12/09/19 Maru Villagomez, RN Registered Nurse 12/10/19 Ang Slade MD 420 [facility] [address] [place], [place] 172935 Urology 04/24/20 Carlos Joyner MD [address] [place] [address] 383065 Assigned Surgical Provider 12/24/20 Annalise Orta PA-C 5200 [place] [address] Assigned Cancer Care Provider 05/13/21 11/01/22 Ang Slade MD [address] [place] [address] 011405 Urology 12/18/22 Lakshmi Wilhelm PA-C [address] [place] [address] 745045 Physician Medical Library Assistant Urology 02/03/23 [place] [address] [facility] [place] [place] 0970768 Assigned PCP 02/06/23 Alissa Perez PA-C [address] [place] [address] 084745 Physician Medical Library Assistant Surgery 09/04/23 Lakshmi Wilhelm PA-C 9 [place] [address] Physician Medical Library Assistant Urology 09/16/23 documented as of this encounter
--- OUTSIDE RECORDS SUMMARY | 2023-10-31 20:48 | XMS_ITS | Encounter Summary ---
Author Organization [place] Address [address] [place] [address] Care Team Providers Care Lace Winder Name Role Phone Carlos Joyner MD Unavailable [phone] Jadon Murray MD Unavailable [phone] Maru Villagomez RN Unavailable Unavailable Ignacia Duran MD Primary Care Provider [phone] Ang Slade MD Unavailable [phone] Carlos Joyner MD Unavailable [phone] Annalise Orta-C Unavailable [phone] Ang Salde MD Unavailable Lakshmi Wilhelm-C Unavailable Heladio Willoughby MD Primary Care Provider [phone] Heladio Willoughby MD Unavailable Alissa Perez PA-C Unavailable [phone] Lakshmi Wilhelm-C Unavailable [phone] Encounter Details Date Type Department Care Team (Late st Contact Info) Description 12/18/2021 Ifeanyi Peck [facility] [address] [address] Carlos Joyner MD [address] [place] [address] Social History Tobacco Use Types Packs/Day [...] suspected to have Coronavirus/COVID-19? No / Unsure 12/04/2021 3:26 PM CDT documented as of this encounter Plan of Treatment Upcoming Encounters Date Type Department Care Team (Late st Contact Info) Description 11/26/2023 PRE VISIT [facility] [address] [phone] Alissa Perez PA-C [address] [place] [address] Previsit 12/08/2023 9:30 AM CDT Office Visit [facility] [address] [phone] [place] [address] [place] [address] Alissa Perez PA-C 500 [place], [place] 791625 documented as of this encounter Visit Diagnoses Not on filedocumented in this encounter Additional Health Concerns Infection Onset Date Last Indicated Resolved Time MRSA Comment:Added from external infection. Pt has had Staph infections but never MRSA from Care everywhere chart review. Removing MRSA 02.06.23 06/17/2019 02/06/2023 9:41 AM C DT documented as of this encounter Care Teams Lace Winder Relationship Specialty Start Date End Date Ignacia Duran MD PCP - General Pediatrics 01/20/20 03/04/23 [place] [address] [facility] [place] [address] PCP - General 03/05/23 Carlos Joyner MD [address] [place] [address]23 Urology 12/09/19 Jadon Murray MD [facility] [address] [address] Referring Physician Pediatric Surgery 12/09/19 Maru Villagomez, RN Registered Nurse 12/10/19 Ang Slade MD [address] [place] [address] 984185 Urology 04/24/20 Carlos Joyner MD [address] [place] [address] 300975 Assigned Surgical Provider 12/24/20 Annalise Orta PA-C 5200 [place] [address] Assigned Cancer Care Provider 05/13/21 11/01/22 Ang Slade MD [address] 358105 Urology 12/18/22 Lakshmi Wilhelm PA-C [address] [place] [address] 791175 Physician Keymodule Assembly Machine Tender Urology 02/03/23 [place] [address] [facility] [place] [address] Assigned PCP 02/06/23 Alissa Perez PA-C [address] [place] [address] 048045 Physician Keymodule Assembly Machine Tender Surgery 09/04/23 Lakshmi Wilhelm PA-C [address] [place] [address] 338585 Physician Keymodule Assembly Machine Tender Urology 09/16/23 documented as of this encounter
--- OUTSIDE RECORDS SUMMARY | 2023-10-31 20:48 | XMS_ITS | Encounter Summary ---
Author Organization [place] Address [address] [place] [address] Care Team Providers Care Hauling Contractor Name Role Phone Carlos Joyner MD Unavailable [phone] Jadon Murray MD Unavailable [phone] Maru Villagomez RN Unavailable Unavailable Ignacia Duran MD Primary Care Provider Ang Slade MD Unavailable [phone] Carlos Joyner MD Unavailable [phone] Annalise Orta-C Unavailable [phone] Ang Slade MD Unavailable [phone] Lakshmi Wilhelm-C Unavailable [phone] Heladio Willoughby MD Primary Care Provider [phone] Heladio Willoughby MD Unavailable Alissa Perez PA-C Unavailable [phone] Lakshmi Wilhelm-Juan A Unavailable [phone] Encounter Details Date Type Department Care Team (Late st Contact Info) Description 12/05/2021 [facility] [address] [phone] Yancy Seo Social History Tobacco Use Types Packs/Day Years [...] st Contact Info) Description 11/26/2023 PRE VISIT [facility] [address] [phone] Alissa Perez PA-C [address] [place] [address] 512845 Previsit 12/08/2023 9:30 AM CDT Office Visit [facility] [address] [phone] [place] [address] [place] [address] Alissa Perez PA-C [address] [place] [address] documented as of this encounter Visit Diagnoses Not on filedocumented in this encounter Additional Health Concerns Infection Onset Date Last Indicated Resolved Time MRSA Comment:Added from external infection. Pt has had Staph infections but never MRSA from Care everywhere chart review. Removing MRSA 02.06.23 06/17/2019 02/06/2023 9:41 AM C DT documented as of this encounter Care Teams Hauling Contractor Relationship Specialty Start Date End Date Ignacia Duran MD PCP - General Pediatrics 01/20/20 03/04/23 [place] [address] [address] [id number] PCP - General 03/05/23 Carlos Joyner MD [address] [place] [address] 768335 Urology 12/09/19 Jadon Murray MD [facility] [address] [id number] Referring Physician Pediatric Surgery 12/09/19 Maru Villagomez, OTILIO Registered Nurse 12/10/19 Ang Slade MD [address] [place] [address] 007805 Urology 04/24/20 Carlos Joyner MD [address] [place] [address] Assigned Surgical Provider 12/24/20 Annalise Orta PA-C 5200 [place] [address] Assigned Cancer Care Provider 05/13/21 11/01/22 Ang Slade MD [address] [place] [address] 472855 Urology 12/18/22 Lakshmi Wilhelm PA-C [address] [place] [address] 722685 Physician Hand Profiler Urology 02/03/23 [place] [address] [facility] [place] [address] Assigned PCP 02/06/23 Alissa Perez PA-C [address] [place] [address] Physician Hand Profiler Surgery 09/04/23 Lakshmi Wilhelm PA-C [address] [place] [address] Physician Hand Profiler Urology 09/16/23 documented as of this encounter
--- OUTSIDE RECORDS SUMMARY | 2023-10-31 20:48 | XMS_ITS | Encounter Summary ---
Author Organization [place] Address [address] [place] [address] Care Team Providers Care Outside Plant Engineer Name Role Phone Carlos Joyner MD Unavailable [phone] Jadon Murray MD Unavailable [phone] Maru Villagomez RN Unavailable Unavailable Ang Slade MD Unavailable [phone] Carlos Joyner MD Unavailable [phone] Ang Slade MD Unavailable [phone] Lakshmi Wilhelm-C Unavailable Heladio Willoughby MD Primary Care Provider [phone] Heladio Willoughby MD Unavailable Alissa Perez PA-C Unavailable [phone] LaLakshmi morales-C Unavailable [phone] Encounter Details Date Type Department Care Team (Late st Contact Info) Description 06/25/2023 [facility] Medical Advice [facility] [address] [place] [address] Carlos Joyner MD [address] [place] [address] Social History Tobacco Use Types Packs/Day [...] st Contact Info) Description 11/26/2023 PRE VISIT [facility] [address] [phone] Alissa Perez PA-C 500 [place], [place] 6[address]235 Previsit 12/08/2023 9:30 AM CDT Office Visit [facility] [address] [phone] [place] [address] [facility] [place] [address] Alissa Perez PA-C [address] [place] [address] 658575 documented as of this encounter Visit Diagnoses Not on filedocumented in this encounter Care Teams Outside Plant Engineer Relationship Specialty [place] [address] [place] [address] PCP - General 03/05/23 Carlos Joyner MD [address] [place] [address] 18022 Urology 12/09/19 Jadon Murray MD [facility] [address] [id number] Referring Physician Pediatric Surgery 12/09/19 Maru Villagomez, RN Registered Nurse 12/10/19 Ang Slade MD [address] [place] [address] 89109 Urology 04/24/20 Carlos Joyner MD [address] [place] [address] 14985 Assigned Surgical Provider 12/24/20 Ang Slade MD [address] [place] [address] 769285 Urology 12/18/22 Lakshmi Wilhelm PA-C [address] [place] [address] 364325 Physician Delivery Engineer Urology 02/03/23 [place] [address] [place] [address] Assigned PCP 02/06/23 Alissa Perez PA-C [address] [place] [address] Physician Delivery Engineer Surgery 09/04/23 Lakshmi Wilhelm PA-C [address] [place] [place] [address] 762745 Physician Delivery Engineer Urology 09/16/23 documented as of this encounter
--- OUTSIDE RECORDS SUMMARY | 2023-10-31 20:48 | XMS_ITS | Encounter Summary ---
Author Organization [place] Address [address] [place] [address]658 Care Team Providers Care Baker Pie Name Role Phone Carlos Joyner MD Unavailable [phone] Jadon Murray MD Unavailable [phone] Maru Villagomez RN Unavailable Unavailable Ignacia Duran MD Primary Care Provider Ang Slade MD Unavailable [phone] Carlos Joyner MD Unavailable [phone] Annalise Orta-C Unavailable [phone] Ang Slade MD Unavailable Lakshmi Wilhelm-C Unavailable Heladio Willoughby MD Primary Care Provider Heladio Willoughby MD Unavailable Alissa Perez PA-C Unavailable [phone] Lakshmi Wilhelm-C Unavailable Encounter Details Date Type Department Care Team (Late st Contact Info) Description 10/01/2021 Ifeanyi Peck [facility] [address] [phone] Carlos Joyner MD [address] [place] [address] Social History Tobacco Use Types Packs/Day [...] st Contact Info) Description 11/26/2023 PRE VISIT [facility] [address] [phone] Alissa Perez PA-C [address] [place] [address] 228435 Previsit 12/08/2023 9:30 AM CDT Office Visit [facility] [address] [phone] [place] [address] [place] [address] Alissa Perez PA-C [address] [place] [address] documented as of this encounter Visit Diagnoses Not on filedocumented in this encounter Additional Health Concerns Infection Onset Date Last Indicated Resolved Time MRSA Comment:Added from external infection. Pt has had Staph infections but never MRSA from Care everywhere chart review. Removing MRSA .14.06/17/2019 02/06/2023 9:41 AM C DT documented as of this encounter Care Teams Baker Pie Relationship Specialty Start Date End Date Ignacia Duran MD PCP - General Pediatrics 01/20/20 03/04/23 [place] [address] [address] [address] PCP - General 10/11/23 Carlos Joyner MD [address] [place] [address] Urology 12/09/19 Jadon Murray MD [facility] [address] [address] Referring Physician Pediatric Surgery 12/09/19 Maru Villagomez, RN Registered Nurse 12/10/19 Ang Slade MD [address] [place] [address] 119055 Urology 04/24/20 Carlos Joyner MD [address] [place] [address] 203205 Assigned Surgical Provider 12/24/20 Annalise Orta PA-C 5200 [place] [address] Assigned Cancer Care Provider 05/13/21 11/01/22 Ang Slade MD [address] [place] [address] 517285 Urology 12/18/22 Lakshmi Wilhelm PA-C [address] [place] [address] 660065 Physician Physician Underwriter Urology 02/03/23 [place] [address] [place] [address] Assigned PCP 02/06/23 Alissa Perez PA-C [address] [place] [address] Physician Physician Underwriter Surgery 09/04/23 Lakshmi Wilhelm PA-C [address] [place] [address] 160575 Physician Physician Underwriter Urology 09/16/23 documented as of this encounter
--- OUTSIDE RECORDS SUMMARY | 2023-10-31 20:48 | XMS_ITS | Encounter Summary ---
Author Organization [facility] Address [address] [place] [address] Care Team Providers Care Grass Cutter Name Role Phone Carlos Joyner MD Unavailable [phone] Jadon Murray MD Unavailable [phone] Maru Villagomez RN Unavailable Unavailable Ignacia Duran MD Primary Care Provider Ang Slade MD Unavailable [phone] Carlos Joyner MD Unavailable [phone] Annalise Orta-C Unavailable [phone] Ang Slade MD Unavailable [phone] Lakshmi Wilhelm-C Unavailable [phone] Heladio Willoughby MD Primary Care Provider [phone] Heladio Willoughby MD Unavailable Alissa Perez PA-C Unavailable [phone] Lakshmi Wilhelm-C Unavailable [phone] Encounter Details Date Type Department Care Team (Late st Contact Info) Description 07/31/2021 [facility] Medical Advice [facility] [address] 5th [place] [address] Makenzie Drummond, RN Social History Tobacco Use Types Packs/Day [...] Upcoming Encounters Date Type Department Care Team ([facility] st Contact Info) Description 11/26/2023 PRE VISIT [facility] [address] [phone] Alissa Perez PA-C [address] [place] [address] Previsit 12/08/2023 9:30 AM CDT Office Visit [facility] [address] [phone] [place] [address] [address] [place] [phone] Alissa Perez PA-C 500 [place] [address] documented as of this encounter Visit Diagnoses Not on filedocumented in this encounter Additional Health Concerns Infection Onset Date Last Indicated Resolved Time MRSA Comment:Added from external infection. Pt has had Staph infections but never MRSA from Care everywhere chart review. Removing MRSA 02.06.23 06/17/2019 02/06/2023 9:41 AM C DT documented as of this encounter Care Teams Grass Cutter Relationship Specialty Start Date End Date Ignacia Duran MD PCP - General Pediatrics 01/20/20 03/04/23 [place] [address] [place] [address] PCP - General 03/05/23 Carlos Joyner MD [address] [place] [address] Urology 12/09/19 Jadon Murray MD [facility] 2530 [facility] 550 [place] [address] Referring Physician Pediatric Surgery 12/09/19 Maru Villagomez, RN Registered Nurse 12/10/19 Ang Slade MD [address] [place] [address] 394 [place], [place] 637875 Urology 04/24/20 Carlos Joyner MD [address] [place] [address] 594015 Assigned Surgical Provider 12/24/20 Annalise Orta PA-C 5200 [place] [address] Assigned Cancer Care Provider 05/13/21 11/01/22 Ang Slade MD [address] [place] [address] 389295 Urology 12/18/22 Lakshmi Wilhelm PA-C [address] [place] [address] 531325 Physician Health Plan Advisor Urology 02/03/23 [place] [address] [place] [address] Assigned PCP 02/06/23 Alissa Perez PA-C [address] [place] [address]841 Physician Health Plan Advisor Surgery 09/04/23 Lakshmi Wilhelm PA-C 909 [place] [address] Physician Health Plan Advisor Urology 09/16/23 documented as of this encounter
--- OUTSIDE RECORDS SUMMARY | 2023-10-31 20:48 | XMS_ITS | Encounter Summary ---
Author Organization [facility] Address [address] [place] [address]57 Care Team Providers Care Pricing Clerk Name Role Phone Carlos Joyner MD Unavailable [phone] Jadon Murray MD Unavailable [phone] Maru Villagomez RN Unavailable Unavailable Ignacia Duran MD Primary Care Provider Ang Slade MD Unavailable [phone] Carlos Joyner MD Unavailable [phone] Annalise Orta-C Unavailable [phone] Ang Slade MD Unavailable [phone] Lakshmi Wilhelm-C Unavailable [phone] Heladio Willoughby MD Primary Care Provider [phone] Heladio Willoughby MD Unavailable Alissa Perez PA-C Unavailable [phone] Lakshmi Wilhelm-C Unavailable [phone] Encounter Details Date Type Department Care Team (Late st Contact Info) Description 10/02/2021 [facility] [address] [phone] Analisa Palacio, OTILIO Social History [...] encounter Miscellaneous Notes * Telephone Encounter - JerryfroilanSarika lawson - 10/03/2021 1:34 PM CDT documented in this encounter Plan of Treatment Upcoming Encounters Date Type Department Care Team (Late st Contact Info) Description 11/26/2023 PRE VISIT [facility]al Surgery Clinic [address] [phone] Alissa Perez PA-C [address] [place] [address] Previsit 12/08/2023 9:30 AM CDT Office Visit [facility] [address] [phone] [place] [address] [place] [address] Alissa Perez PA-C 500 [place] [address] documented as of this encounter Visit Diagnoses Not on filedocumented in this encounter Additional Health Concerns Infection Onset Date Last Indicated Resolved Time MRSA Comment:Added from external infection. Pt has had Staph infections but never MRSA from Care everywhere chart review. Removing MRSA 02.06.23 06/17/2019 02/06/2023 9:41 AM C DT documented as of this encounter Care Teams Pricing Clerk Relationship Specialty Start Date End Date Ignacia Duran MD PCP - General Pediatrics 01/20/20 03/04/23 [place] [address] [facility] [place] [address] PCP - General 03/05/23 Carlos Joyner MD [address] [place] [address] Urology 12/09/19 Jadon Murray MD [facility] [address] [address] Referring Physician Pediatric Surgery 12/09/19 Maru Villagomez, RN Registered Nurse 12/10/19 Ang Slade MD [address] [place] [address] 244375 Urology 04/24/20 Carlos Joyner MD [address] [place] [address] 115225 Assigned Surgical Provider 12/24/20 Annalise Orta PA-C 5200 [place] [address] Assigned Cancer Care Provider 05/13/21 11/01/22 Ang Slade MD [address] [place] [address] 227875 Urology 12/18/22 Lakshmi Wilhelm PA-C [address] [place] [address] Physician Clinical Product Manager Urology 02/03/23 [place] [address] [place] [address] Assigned PCP 02/06/23 Alissa Perez PA-C [address] [place] [address] Physician Clinical Product Manager Surgery 09/04/23 Lakshmi Wilhelm PA-C [address] [place] [address] Physician Clinical Product Manager Urology 09/16/23 documented as of this encounter
--- OUTSIDE RECORDS SUMMARY | 2023-10-31 20:48 | XMS_ITS | Encounter Summary ---
Author Organization [facility] Address [address] [place] [address]139 Care Team Providers Care Copyright Manager Name Role Phone Carlos Joyner MD Unavailable [phone] Jadon Murray MD Unavailable [phone] Maru Villagomez RN Unavailable Unavailable Ang Slade MD Unavailable [phone] Carlos Joyner MD Unavailable +[phone] Ang Slade MD Unavailable [phone] Lakshmi Wilhelm-C Unavailable [phone] Heladio Willoughby MD Primary Care Provider [phone] Heladio Willoughby MD Unavailable Alissa Perez PA-C Unavailable [phone] LaLakshmi morales-C Unavailable [phone] Encounter Details Date Type Department Care Team (Late st Contact Info) Description 04/08/2023 MyC Medical Advice [facility] [address] [place] [address] Rosita Velasco, RN Social History Tobacco Use Types Packs/Day [...] you got money to buy more? No 04/11/2023 Within the past 12 months, d id the food you bought just not last and you didn? t have money to get more? No 04/11/2023 Housing Stability Answer Date Recorded Do you have housing? Yes 04/11/2023 Are you worried about losing your housing? No 04/11/2023 Financial Resource Strain Answer Date R ecorded Within the past 12 months, h ave you or your family members you live with been unable to get utilities (heat, electricity) when it was really needed? No 04/11/2023 Transportation Needs Answer Date Record ed Within the past 12 months, h as lack of transportation kept you from medical appointments, getting your medicines, non-medical meetings or appointments, work, or from getting things that you need? Yes 04/11/2023 Sex and Gender Information Value Date Recorded Sex Assigned at Not on file Gender Identity Not on file Sexual Orientation Not on file documented as of this encounter Plan of Treatment Upcoming Encounters Date Type Department Care Team (Late st Contact Info) Description 11/26/2023 PRE VISIT [facility] [address] [address] Alissa Perez PA-C [address] [place], [place] 648595 Previsit 12/08/2023 9:30 AM CDT Office Visit [facility] [address] [phone] [place] [address] [place] [address] Alissa Perez PA-C [address] [place], [place] 497375 documented as of this encounter Visit Diagnoses Not on filedocumented in this encounter Care Teams Copyright Manager Relationship Specialty [place] [address] [place] [address] PCP - General 03/05/23 Carlos Joyner MD [address] [place] [address] Urology 12/09/19 Jadon Murray MD [facility] 2530 [facility] 550 [place] [address] Referring Physician Pediatric Surgery 12/09/19 Maru Villagomez, OTILIO Registered Nurse 12/10/19 Ang Slade MD [address] [place] [address] 802895 Urology 04/24/20 Carlos Joyner MD [address] [place] [address] 977515 Assigned Surgical Provider 12/24/20 Ang Slade MD [address] [place] [address] 927115 Urology 12/18/22 Lakshmi Wilhelm PA-C [address] [place] [address] 909655 Physician Building Mover Urology 02/03/23 [place] [address] [place] [address] Assigned PCP 02/06/23 Alissa Perez PA-C [address] [place] [address] 558414 Physician Building Mover Surgery 09/04/23 Lakshmi Wilhelm PA-C [address] [place] [address] Physician Building Mover Urology 09/16/23 documented as of this encounter
--- OUTSIDE RECORDS SUMMARY | 2023-10-31 20:48 | XMS_ITS | Encounter Summary ---
Author Organization [facility] Address [address] [place] [address] Care Team Providers Care Stone Gluer Name Role Phone Carlos Joyner MD Unavailable [phone] Jadon Murray MD Unavailable [phone] Maru Villagomez RN Unavailable Unavailable Ignacia Duran MD Primary Care Provider [phone] Ang Slade MD Unavailable [phone] Carlos Joyner MD Unavailable [phone] Ang Slade MD Unavailable [phone] Lakshmi WilhelmC Unavailable [phone] Heladio Willoughby MD Primary Care Provider [phone] Heladio Willoughby MD Unavailable Alissa Perez-C Unavailable [phone] Lakshmi WilhelmC Unavailable [phone] Encounter Details Date Type Department Care Team (Late st Contact Info) Description 01/07/2023 [facility] [address] [place] [address] Analisa Palacio RN Social History [...] [facility] [address] [phone] Alissa Perez PA-C [address] [place] [address] 488595 Previsit 12/08/2023 9:30 AM CDT Office Visit [facility] [address] [phone] [place] [address] [place] [address] Alissa Perez PA-C [address] [place] [address] 563925 documented as of this encounter Visit Diagnoses Not on filedocumented in this encounter Additional Health Concerns Infection Onset Date Last Indicated Resolved Time MRSA Comment:Added from external infection. Pt has had Staph infections but never MRSA from Care everywhere chart review. Removing MRSA .1406/17/2019 02/06/2023 9:41 AM C DT documented as of this encounter Care Teams Stone Gluer Relationship Specialty Start Date End Date Ignacia Duran MD PCP - General Pediatrics 01/20/20 03/04/23 [place] [address] [address] [address] PCP - General 03/05/23 Carlos Joyner MD [address] [place] [address] Urology 12/09/19 Jadon Murray MD [facility] 2530 [facility] 550 [place] [address] Referring Physician Pediatric Surgery 12/09/19 Maru Villagomez, RN Registered Nurse 12/10/19 Ang Slade MD 420 [facility] 394 [place], [place] 783875 Urology 04/24/20 Carlos Joyner MD [address] [place] [address] 400075 Assigned Surgical Provider 12/24/20 Ang Slade MD 420 [facility] 394 [place], [place] 733775 Urology 12/18/22 Lakshmi Wilhelm PA-C [address] [place] [address] 679065 Physician Explosives Worker Urology 02/03/23 [place] [address] [facility] [place] [address] Assigned PCP 02/06/23 Alissa Perez PA-C [address] [place] [address] 704185 Physician Explosives Worker Surgery 09/04/23 Lakshmi Wilhelm PA-C 9 [place] [address] Physician Explosives Worker Urology 09/16/23 documented as of this encounter
--- OUTSIDE RECORDS SUMMARY | 2023-10-31 20:48 | XMS_ITS | Encounter Summary ---
Author Organization [facility] Address [address] [place] [address] Care Team Providers Care Gem Expert Name Role Phone Carlos Joyner MD Unavailable [phone] Jadon Murray MD Unavailable [phone] Maru Villagomez RN Unavailable Unavailable Ang Slade MD Unavailable [phone] Carlos Joyner MD Unavailable [phone] Ang Slade MD Unavailable [phone] Lakshmi Wilhelm-C Unavailable [phone] Heladio Willoughby MD Primary Care Provider [phone] Heladio Willoughby MD Unavailable Alissa Perez PA-C Unavailable [phone] LaLakshmi morales-C Unavailable [phone] Encounter Details Date Type Department Care Team (Late st Contact Info) Description 05/05/2023 MyC Medical Advice [facility] Urology Clinic [address] [place] [address] Rosita Velasco, RN Social History Tobacco Use Types Packs/Day Years Used Date Smoking Tobacco: Never Smokeless Tobacco: Never Alcohol Use Standard Drinks/Week Comments Not Currently 0 (1 standard drink = 0.6 oz pur e alcohol) PHQ-2 Answer Date Recorded PHQ-2 Score 0 04/16/2023 Adolescent Education Answer Date Record ed Getting [...] st Contact Info) Description 11/26/2023 PRE VISIT [facility] [address] [address] Alissa Perez PA-C 500 [place], [place] 350105 Previsit 12/08/2023 9:30 AM CDT Office Visit [facility] [address] [phone] [place] [address] [place] [address] Alisas Perez PA-C [address] [place], [place] 871195 documented as of this encounter Visit Diagnoses Not on filedocumented in this encounter Care Teams Gem Expert Relationship Specialty [place] [address] [place] [address] PCP - General 03/05/23 Carlos Joyner MD [address] [place] [address] Urology 12/09/19 Jadon Murray MD [facility] 2530 [facility] 550 [place] [address] Referring Physician Pediatric Surgery 12/09/19 Maru Villagomez, OTILIO Registered Nurse 12/10/19 Ang Slade MD [address] [place] [address] 840935 Urology 04/24/20 Carlos Joyner MD [address] [place] [address] 691125 Assigned Surgical Provider 12/24/20 Ang Slade MD [address] [place] [address] 384215 Urology 12/18/22 Lakshmi Wilhelm PA-C [address] [place] [address] 788715 Physician Automation Machine Operator Urology 02/03/23 [place] [address] [place] [address] Assigned PCP 02/06/23 Alissa Perez PA-C [address] [place] [address] 317818 Physician Automation Machine Operator Surgery 09/04/23 Lakshmi Wilhelm PA-C [address] [place] [address] Physician Automation Machine Operator Urology 09/16/23 documented as of this encounter
--- OUTSIDE RECORDS SUMMARY | 2023-10-31 20:48 | XMS_ITS | Encounter Summary ---
Author Organization [facility] Address [address] [place] [address] Care Team Providers Care Perinatal Director Name Role Phone Carlos Joyner MD Unavailable [phone] Jadon Murray MD Unavailable [phone] Maru Villagomez RN Unavailable Unavailable Ignacia Duran MD Primary Care Provider [phone] Ang Slade MD Unavailable [phone] Carlos Joyner MD Unavailable [phone] Ang Slade MD Unavailable [phone] Lakshmi Wilhelm-C Unavailable [phone] Heladio Willoughby MD Primary Care Provider [phone] Heladio Willoughby MD Unavailable Alissa Perez-C Unavailable [phone] Lakshmi WilhelmC Unavailable [phone] Encounter Details Date Type Department Care Team (Late st Contact Info) Description 01/06/2023 [facility] [place] [facility] [place] 2945 [facility] 200 [place] [address] Lisette Mariee Social History Tobacco Use Types Packs/Day Years [...] Contact Info) Description 11/26/[address] [facility] [address] [phone] Alissa Perez PA-C [address] [place] [address] 478855 Previsit 12/08/2023 9:30 AM CDT Office Visit [facility] [address] [phone] [place] [address] [place] [address] Alissa Perez PA-C [address] [place] [address] 999635 documented as of this encounter Visit Diagnoses Not on filedocumented in this encounter Additional Health Concerns Infection Onset Date Last Indicated Resolved Time MRSA Comment:Added from external infection. Pt has had Staph infections but never MRSA from Care everywhere chart review. Removing MRSA .14.06/17/2019 02/06/2023 9:41 AM C DT documented as of this encounter Care Teams Perinatal Director Relationship Specialty Start Date End Date Ignacia Duran MD PCP - General Pediatrics 01/20/20 03/04/23 [place] [address] [address] [address] PCP - General 03/05/23 Carlos Joyner MD [address] [place] [address] Urology 12/09/19 Jadon Murray MD [facility] [address] [facility] 550 [place] [address] Referring Physician Pediatric Surgery 12/09/19 Maru Villagomez, RN Registered Nurse 12/10/19 Ang Slade MD [address] [place] [address] 394 [place], [place] 384975 Urology 04/24/20 Carlos Joyner MD [address] [place] [address] 717305 Assigned Surgical Provider 12/24/20 Ang Slade MD [address] [place] [address] 802055 Urology 12/18/22 Lakshmi Wilhelm PA-C [address] [place] [address] 165045 Physician Corn Breeder Urology 02/03/23 [place] [address] [place] [address] Assigned PCP 02/06/23 Alissa Perez PA-C [address] [place] [address] 036055 Physician Corn Breeder Surgery 09/04/23 Lakshmi Wilhelm PA-C [address] [place] [address] 64[address] Physician Corn Breeder Urology 09/16/23 documented as of this encounter
--- OUTSIDE RECORDS SUMMARY | 2023-10-31 20:48 | XMS_ITS | Encounter Summary ---
Author Organization [facility] Address [address] [place] [address] Care Team Providers Care Glass Inspector Name Role Phone Carlos Joyner MD Unavailable [phone] Jadon Murray MD Unavailable [phone] Maru Villagomez RN Unavailable Unavailable Ignacia Duran MD Primary Care Provider Ang Slade MD Unavailable [phone] Carlos Joyner MD Unavailable [phone] Annalise Orta-C Unavailable Ang Slade MD Unavailable Lakshmi Wilhelm-C Unavailable [phone] Heladio Willoughby MD Primary Care Provider [phone] Heladio Willoughby MD Unavailable Alissa Perez PA-C Unavailable [phone] Lakshmi Wilhelm-C Unavailable Encounter Details Date Type Department Care Team (Late st Contact Info) Description 09/17/2021 [facility] U[facility] [address] [phone] Carlos Joyner MD [address] [place] [address] Social History Tobacco Use Types Packs/Day [...] * Telephone Encounter - Sarika Gonsalez - 09/27/2021 8:51 AM CDT documented in this encounter Plan of Treatment Upcoming Encounters Date Type Department Care Team (Late st Contact Info) Description 11/26/2023 PRE VISIT [facility] [address] [phone] Alissa Perez PA-C 500 [place] [address] Previsit 12/08/2023 9:30 AM CDT Office Visit [facility] [address] [phone] [place] [address] [place] [address] Alissa Perez PA-C [address] [place] [address] 667015 documented as of this encounter Visit Diagnoses Not on filedocumented in this encounter Additional Health Concerns Infection Onset Date Last Indicated Resolved Time MRSA Comment:Added from external infection. Pt has had Staph infections but never MRSA from Care everywhere chart review. Removing MRSA .14.06/17/2019 02/06/2023 9:41 AM C DT documented as of this encounter Care Teams Glass Inspector Relationship Specialty Start Date End Date Ignacia Duran MD PCP - General Pediatrics 01/20/20 03/04/23 [place] [address] [place] [address] PCP - General 03/05/23 Carlos Joyner MD [address] [place] [address] 873265 Urology 12/09/19 Jadon Murray MD [facility] [address] [id number] Referring Physician Pediatric Surgery 12/09/19 Maru Villagomez, OTILIO Registered Nurse 12/10/19 Ang Slade MD [address] [place] [address] Urology 04/24/20 Carlos Joyner MD [address] [place] [address] 002195 Assigned Surgical Provider 12/24/20 Annalise Orta PA-C 5200 [place] [address] Assigned Cancer Care Provider 05/13/21 11/01/22 Ang Slade MD [address] [place] [address] 943345 Urology 12/18/22 Lakshmi Wilhelm PA-C [address] [place] [address] 884465 Physician Director Education Urology 02/03/23 [place] [address] [place] [address] Assigned PCP 02/06/23 Alissa Perez PA-C [address] [place] [address] Physician Director Education Surgery 09/04/23 Lakshmi Wilhelm PA-C [address] [place] [address] [phone] Physician Director Education Urology 09/16/23 documented as of this encounter
--- OUTSIDE RECORDS SUMMARY | 2023-10-31 20:48 | XMS_ITS | Encounter Summary ---
Author Organization [facility] Address [address] [place] [address] Care Team Providers Care Team Truck Driver Name Role Phone Carlos Joyner MD Unavailable [phone] Jadon Murray MD Unavailable [phone] Maru Villagomez RN Unavailable Unavailable Ignacia Duran MD Primary Care Provider [phone] Ang Slade MD Unavailable [phone] Carlos Joyner MD Unavailable +[phone] Annalise Orta-C Unavailable [phone] Ang Slade MD Unavailable [phone] Lakshmi Wilhelm-C Unavailable [phone] Heladio Willoughby MD Primary Care Provider [phone] Heladio Willoughby MD Unavailable Alissa Perez PA-C Unavailable [phone] Lakshmi Wilhelm-C Unavailable [phone] Encounter Details Date Type Department Care Team (Late st Contact Info) Description 11/14/2021 [facility] [address] [phone] Analisa Palacio, OTILIO Social History [...] suspected to have Coronavirus/COVID-19? No / Unsure 11/12/2021 12:13 PM CDT documented as of this encounter Plan of Treatment Upcoming Encounters Date Type Department Care Team (Late st Contact Info) Description 11/26/2023 PRE VISIT [facility] Surgery [facility] [address] [phone] Alissa Perez PA-C [address] [place] [address] 143235 Previsit 12/08/2023 9:30 AM CDT Office Visit [facility] [address] [phone] [place] [address] [address] [address] Alissa Perez PA-C [address] [place] [address] documented as of this encounter Visit Diagnoses Not on filedocumented in this encounter Additional Health Concerns Infection Onset Date Last Indicated Resolved Time MRSA Comment:Added from external infection. Pt has had Staph infections but never MRSA from Care everywhere chart review. Removing MRSA 02.06.23 06/17/2019 02/06/2023 9:41 AM C DT documented as of this encounter Care Teams Team Truck Driver Relationship Specialty Start Date End Date Ignacia Duran MD PCP - General Pediatrics 01/20/20 03/04/23 [place] [address] [address] [address] PCP - General 03/05/23 Carlos Joyner MD [address] [place] [address]87 Urology 12/09/19 Jadon Murray MD [facility] [address] [address] Referring Physician Pediatric Surgery 12/09/19 Maru Villagomez, RN Registered Nurse 12/10/19 Ang Slade MD [address] [place] [address] 887[address] Urology 04/24/20 Carlos Joyner MD [address] [place] [address] 22185 Assigned Surgical Provider 12/24/20 Annalise Orta PA-C 5200 [place] [address] Assigned Cancer Care Provider 05/13/21 11/01/22 Ang Slade MD [address] [place] [address] Urology 12/18/22 Lakshmi Wilhelm PA-C [address] [place] [address] Physician Pinking Machine Operator Urology 02/03/23 [place] [address] [place] [address] Assigned PCP 02/06/23 Alissa Perez PA-C [address] [place] [address] Physician Pinking Machine Operator Surgery 09/04/23 Lakshmi Wilhelm PA-C [address] [place] [address] Physician Pinking Machine Operator Urology 09/16/23 documented as of this encounter
--- OUTSIDE RECORDS SUMMARY | 2023-10-31 20:48 | XMS_ITS | Encounter Summary ---
Author Organization [facility] Address [address] [place] [address]992 Care Team Providers Care Reception Specialist Name Role Phone Carlos Joyner MD Unavailable [phone] Jadon Murray MD Unavailable [phone] Maru Villagomez RN Unavailable Unavailable Ignacia Duran MD Primary Care Provider Ang Slade MD Unavailable [phone] Carlos Joyner MD Unavailable +[phone] Annalise Orta PA-C Unavailable +[phone] Ang Slade MD Unavailable Lakshmi Wilhelm PA-C Unavailable [phone] Heladio Willoughby MD Primary Care Provider [phone] Heladio Willoughby MD Unavailable Alissa PerezC Unavailable [phone] Lakshmi Wilhelm PA-C Unavailable Encounter Details Date Type Department Care Team (Late st Contact Info) Description 10/12/2021 [facility] [place] 909 [facility] 5th [place] [address] Tanisha Coe PA-C 909 [place] [address] Social History Tobacco Use Types Packs/Day [...] [facility] [address] [phone] Alissa Perez PA-C [address] [place] [address] 957105 Previsit 12/08/2023 9:30 AM CDT Office Visit [facility] [address] [phone] [place] [address] [place] [address] Alissa Perez PA-C [address] [place] [address] 642135 documented as of this encounter Visit Diagnoses Not on filedocumented in this encounter Additional Health Concerns Infection Onset Date Last Indicated Resolved Time MRSA Comment:Added from external infection. Pt has had Staph infections but never MRSA from Care everywhere chart review. Removing MRSA 02.06.23 06/17/2019 02/06/2023 9:41 AM C DT documented as of this encounter Care Teams Reception Specialist Relationship Specialty Start Date End Date Ignacia Duran MD PCP - General Pediatrics 01/20/20 03/04/23 [place] [address] [address] [address] PCP - General 03/05/23 Carlos Joyner MD [address] [place] [address] Urology 12/09/19 Jadon Murray MD [facility] [address] [address] Referring Physician Pediatric Surgery 12/09/19 Maru Villagomez, RN Registered Nurse 12/10/19 Ang Slade MD [address] [place] [address] 397845 Urology 04/24/20 Carlos Joyner MD [address] [place] [address] 459575 Assigned Surgical Provider 12/24/20 Annalise Orta PA-C 5200 [place] [address] Assigned Cancer Care Provider 05/13/21 11/01/22 Ang Slade MD [address] [place] [address] 549625 Urology 12/18/22 Lakshmi Wilhelm PA-C [address] [place] [address] 826255 Physician Eeg Technologist Urology 02/03/23 [place] [address] [place] [address] Assigned PCP 02/06/23 Alissa Perez PA-C [address] [place] [address] Physician Eeg Technologist Surgery 09/04/23 Lakshmi Wilhelm PA-C [address] [place] [address] 732005 Physician Eeg Technologist Urology 09/16/23 documented as of this encounter
--- OUTSIDE RECORDS SUMMARY | 2023-10-31 20:49 | XMS_ITS | Encounter Summary ---
Author Organization [facility] Address [address] [place] [address] Care Team Providers Care Lead Nurse Name Role Phone Carlos Joyner MD Unavailable [phone] Jadon Murray MD Unavailable [phone] Maru Villagomez RN Unavailable Unavailable Ignacia Duran MD Primary Care Provider Ang Slade MD Unavailable [phone] Carlos Joyner MD Unavailable [phone] Annalise Orta-C Unavailable [phone] Ang Slade MD Unavailable Lakshmi Wilhelm-C Unavailable [phone] Heladio Willoughby MD Primary Care Provider [phone] Heladio Willoughby MD Unavailable Alissa Perez PA-C Unavailable [phone] Lakshmi Wilhelm-Juan A Unavailable Reason for Visit * Reason Onset Date Comments Patient/info Update 02/26/2021 pt currently intubated, will nto be able to have uro surgery Encounter Details Date Type Department Care Team (Late st Contact Info) Description 02/26/2021 [facility] [address] 4th [place] [address] Carlos Joyner MD [address] [place] [address] Patient/info Update (pt currently intubated, will nto be able to have uro surgery) Social History Tobacco Use Types Packs/Day Years Used Date Smoking Tobacco: Never Smokeless Tobacco: Never PHQ-2 Answer Date Recorded PHQ-2 Score 0 12/13/2019 Sex and Gender Information Value Date Recorded Sex Assigned at Not on file Gender Identity Not on file Sexual Orientation Not on file documented as of this encounter Miscellaneous Notes * Telephone Encounter - Dara Sanchez - 03/06/2021 3:14 PM CDT Appt on 04/10 has been confirmed * Telephone Encounter - Lakshmi Chowdhury - 02/26/2021 2:07 PM CDT [facility] Phone Message May a detailed message be left on voicemail: yes Reason for Call: Other: Edith called in wanting to let Dr. Joyner and his team know that [facility]21. Please call back if thereare any questions at [phone] Action Taken: Message routed to: [facility] Travel Screening: Not Applicable documented in this encounter Plan of Treatment Upcoming Encounters Date Type Department Care Team ([facility] st Contact Info) Description 11/26/2023 PRE VISIT [facility] [address] [address] Alissa Perez PA-C [address] [place] [address] 707835 Previsit 12/08/2023 9:30 AM CDT Office Visit [facility] [address] [address] [place] [address] [place] [address] Alissa Perez PA-C [address] [place] [address] 304205 documented as of this encounter Visit Diagnoses Not on filedocumented in this encounter Additional Health Concerns Infection Onset Date Last Indicated Resolved Time MRSA Comment:Added from external infection. Pt has had Staph infections but never MRSA from Care everywhere chart review. Removing MRSA 02.06.23 06/17/2019 02/06/2023 9:41 AM C DT documented as of this encounter Care Teams Lead Nurse Relationship Specialty Start Date End Date Ignacia Duran MD PCP - General Pediatrics 01/20/20 03/04/23 [place] [address] [facility] [place] [address] PCP - General 03/05/23 Carlos Joyner MD [address] [place] [address] 182165 Urology 12/09/19 Jadon Murray MD [facility] 2530 [facility] [address] [place] [address] Referring Physician Pediatric Surgery 12/09/19 Maru Villagomez, OTILIO Registered Nurse 12/10/19 Ang Slade MD [address] [place] [address] [address] [place], [place] 441475 Urology 04/24/20 Carlos Joyner MD [address] [place] [address] 837005 Assigned Surgical Provider 12/24/20 Annalise Orta PA-C 5200 [place] [address] Assigned Cancer Care Provider 05/13/21 11/01/22 Ang Slade MD [address] [place] [address] 075645 MD Urology 12/18/22 Lakshmi Wilhelm PA-C [address] [place] [address] 554325 Physician Electronic Sensing Equipment Assembler Urology 02/03/23 [place] [address] [place] [address] Assigned PCP 02/06/23 Alissa Perez PA-C [address] [place] [address] 784205 Physician Electronic Sensing Equipment Assembler Surgery 09/04/23 Lakshmi Wilhelm PA-C [address] [place] [address] 173135 Physician Electronic Sensing Equipment Assembler Urology 09/16/23 documented as of this encounter
--- OUTSIDE RECORDS SUMMARY | 2023-10-31 20:49 | XMS_ITS | Encounter Summary ---
Author Organization [facility] Address [address] [place] [address] Care Team Providers Care Publications Designer Name Role Phone Carlos Joyner MD Unavailable [phone] Jadon Murray MD Unavailable [phone] Maru Villagomez RN Unavailable Unavailable Ignacia Duran MD Primary Care Provider [phone] Carlos Joyner MD Unavailable [phone] Ang Slade MD Unavailable [phone] Ang Slade MD Unavailable [phone] Carlos Joyner MD Unavailable [phone] Annalise Orta-C Unavailable [phone] Ang Slade MD Unavailable [phone] Lakshmi Wilhelm-C Unavailable [phone] Heladio Willoughby MD Primary Care Provider [phone] Heladio Willoughby MD Unavailable Alissa Perez-C Unavailable [phone] Lakshmi Wilhelm-C Unavailable [phone] Reason for Visit * Reason Onset Date Comments Call Back 08/01/2020 Miscommunication between urinary results Encounter Details Date Type Department Care Team (Late st Contact Info) Description 08/01/2020 [facility] [address] 4th [place] [address] Ang Slade MD 420 [facility] [address] [place], [place] 0684[address] Call Back (Miscommunication between urinary results) Social History Tobacco Use Types Packs/Day Years [...] have Coronavirus / COVID-19? 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 Reports that there is some miscommunication that she wants to clarify. Please call back. Action Taken: Message routed to: [facility] uro Travel Screening: Not Applicable STMAS TREE GRADER documented in this encounter Plan of Treatment Upcoming Encounters Date Type Department Care Team (Late st Contact Info) Description 11/26/[address] [facility] [address] [address] Alissa Perez PA-C [address] [place] [address] 508245 Previsit 12/08/2023 9:30 AM CDT Office Visit [facility] [address] [address] [place] [address] [facility] [address] Alissa Perez PA-C [address] [place] [address] documented as of this encounter Visit Diagnoses Not on filedocumented in this encounter Additional Health Concerns Infection Onset Date Last Indicated Resolved Time MRSA Comment:Added from external infection. Pt has had Staph infections but never MRSA from Care everywhere chart review. Removing MRSA 02.06.23 06/17/2019 02/06/2023 9:41 AM C DT documented as of this encounter Care Teams Publications Designer Relationship Specialty Start Date End Date Ignacia Duran MD PCP - General Pediatrics 01/20/20 03/04/23 [place] [address] [facility] [address] PCP - General 03/05/23 Carlos Joyner MD [address] [place] [address] Urology 12/09/19 Jadon Murray MD [facility] [address] [address] Referring Physician Pediatric Surgery 12/09/19 Maru Villagomez, RN Registered Nurse 12/10/19 Carlos Joyner MD [address] [place] [address] Assigned Surgical Provider 03/17/20 08/12/20 Ang Slade MD [address] [place] [address] Urology 04/24/20 Ang Slade MD [address] [place] [address] Assigned Surgical Provider 08/13/20 12/23/20 Carlos Joyner MD [address] [place] [address] Assigned Surgical Provider 12/24/20 Annalise Orta PA-C 5200 [place] [address] Assigned Cancer Care Provider 05/13/21 11/01/22 Ang Slade MD [address] [place] [address] Urology 12/18/22 Lakshmi Wilhelm PA-C [address] [place] [address] 003945 Physician Signals Intelligence Analysis Manager Urology 02/03/23 [place] [address] [place] [address] Assigned PCP 02/06/23 Alissa Perez PA-C [address] [place] [address] 825015 Physician Signals Intelligence Analysis Manager Surgery 09/04/23 Lakshmi Wilhelm PA-C [address] [place] [address] 770185 Physician Signals Intelligence Analysis Manager Urology 09/16/23 documented as of this encounter
--- OUTSIDE RECORDS SUMMARY | 2023-10-31 20:49 | XMS_ITS | Encounter Summary ---
Author Organization [facility] Address [address] [place] [address] Care Team Providers Care Financial Planning Advisor Name Role Phone Carlos Joyner MD Unavailable [phone] Jadon Murray MD Unavailable [phone] Maru Villagomez RN Unavailable Unavailable Ignacia Duran MD Primary Care Provider [phone] Ang Slade MD Unavailable Carlos Joyner MD Unavailable [phone] Annalise Orta-C Unavailable Ang Slaed MD Unavailable [phone] Lakshmi WilhelmC Unavailable Heladio Willoughby MD Primary Care Provider [phone] Heladio Willoughby MD Unavailable Alissa Perez-C Unavailable [phone] Lakshmi Wilhelm PA-C Unavailable Reason for Visit * Reason Onset Date Comments Call Back 06/27/2021 Bladder infectio n Encounter Details Date Type Department Care Team (Late st Contact Info) Description 06/27/2021 Telephone [facility] [address] 4th [place] [address] Carlos Joyner MD [address] [place] [address] Call Back (Bladder infection) Social History Tobacco Use Types Packs/Day Years [...] COVID-19? No / Unsure 06/19/2021 11:16 AM OCEANOGRAPHER PHYSICAL documented as of this encounter Miscellaneous Notes * Telephone Encounter - Karen Sheth - 06/27/2021 12:22 PM CST [facility] Phone Message May a detailed message be left on voicemail: yes Reason for Call: Other: Chetan calling to let Dr Joyner know that Laina has a bladder infection.Chetan asked to speak with a nurse regarding this as he has some questions. Please give Chetan a call to discuss Action Taken: Message routed to: [facility] uro Travel Screening: Not Applicable NOGRAPHER PHYSICAL documented in this encounter Plan of Treatment Upcoming Encounters Date Type Department Care Team (Late st Contact Info) Description 11/26/2023 PRE VISIT [facility] [address] [address] Alissa Perez PA-C [address] [place], [place] 219255 Previsit 12/08/2023 9:30 AM CDT Office Visit [facility] [address] [address] [place] [address] [place] [address] Alissa Perez PA-C [address] [place] [address] 602645 documented as of this encounter Visit Diagnoses Not on filedocumented in this encounter Additional Health Concerns Infection Onset Date Last Indicated Resolved Time MRSA Comment:Added from external infection. Pt has had Staph infections but never MRSA from Care everywhere chart review. Removing MRSA 02.06.23 06/17/2019 02/06/2023 9:41 AM C DT documented as of this encounter Care Teams Financial Planning Advisor Relationship Specialty Start Date End Date Ignacia Duran MD PCP - General Pediatrics 01/20/20 03/04/23 [place] [address] [place] [address] PCP - General 03/05/23 Carlos Joyner MD [address] [place] [address] 198645 Urology 12/09/19 Jadon Murray MD [facility] 2530 [facility] [address] [place] [address] Referring Physician Pediatric Surgery 12/09/19 Maru Villagomez, OTILIO Registered Nurse 12/10/19 Ang Slade MD [address] [place] [address] 394 [place], [place] 363015 Urology 04/24/20 Carlos Joyner MD [address] [place] [address] 396535 Assigned Surgical Provider 12/24/20 Annalise Orta PA-C 5200 [place] [address] Assigned Cancer Care Provider 05/13/21 11/01/22 Ang Slade MD [address] [place] [address] 826815 Urology 12/18/22 Lakshmi Wilhelm PA-C [address] [place] [address] 388025 Physician Aquaculture Farm Manager Urology 02/03/23 [place] [address] [place] [address] Assigned PCP 02/06/23 Alissa Perez PA-C [address] [place] [address] 987225 Physician Aquaculture Farm Manager Surgery 09/04/23 Lakshmi Wilhelm PA-C [address] [place] [address] 949845 Physician Aquaculture Farm Manager Urology 09/16/23 documented as of this encounter
--- OUTSIDE RECORDS SUMMARY | 2023-10-31 20:49 | XMS_ITS | Encounter Summary ---
Author Organization [facility] Address [address] [place] [address] Care Team Providers Care Networking Technician Name Role Phone Carlos Joyner MD Unavailable [phone] Jadon Murray MD Unavailable [phone] Maru Villagomez RN Unavailable Unavailable Ignacia Duran MD Primary Care Provider Ang Slade MD Unavailable [phone] Carlos Joyner MD Unavailable [phone] Annalise Orta-C Unavailable [phone] Ang Slade MD Unavailable [phone] Lakshmi Wilhelm-C Unavailable [phone] Heladio Willoughby MD Primary Care Provider [phone] Heladio Willoughby MD Unavailable Alissa Perez PA-C Unavailable [phone] Lakshmi Wilhelm-Juan A Unavailable [phone] Encounter Details Date Type Department Care Team (Late st Contact Info) Description 04/16/2021 [employer] [facility] [address] [address] Berna Britton Social History Tobacco Use Types Packs/Day Years [...] st Contact Info) Description 11/26/2023 PRE VISIT [facility] [address] [phone] Alissa Perez PA-C [address] [place], [place] 459515 Previsit 12/08/2023 9:30 AM CDT Office Visit [facility] [address] [address] [place] [address] [address] [place] [place], [place] 69[address] Alissa Perez PA-C 500 [place], [place] 830295 documented as of this encounter Visit Diagnoses Not on filedocumented in this encounter Additional Health Concerns Infection Onset Date Last Indicated Resolved Time MRSA Comment:Added from external infection. Pt has had Staph infections but never MRSA from Care everywhere chart review. Removing MRSA 02.06.23 06/17/2019 02/06/2023 9:41 AM C DT documented as of this encounter Care Teams Networking Technician Relationship Specialty Start Date End Date Ignacia Duran MD PCP - General Pediatrics 01/20/20 03/04/23 [place] [address] [place] [id number] PCP - General 03/05/23 Carlos Joyner MD [address] [place] [address] 223315 Urology 12/09/19 Jadon Murray MD [facility] [address] [address] Referring Physician Pediatric Surgery 12/09/19 Maru Villagomez, RN Registered Nurse 12/10/19 Ang Slade MD [address] [place] [address] 394 [place], [place] 066985 Urology 04/24/20 Carlos Joyner MD [address] [place] [address] 623125 Assigned Surgical Provider 12/24/20 Annalise Orta PA-C 5[address] [place] [address] Assigned Cancer Care Provider 05/13/21 11/01/22 Ang Slade MD [address] [place] [address] 844385 Urology 12/18/22 Lakshmi Wilhelm PA-C [address] [place] [address] 469625 Physician Maintenance Worker Urology 02/03/23 [place] [address] [facility] [place] [address] Assigned PCP 02/06/23 Alissa Perez PA-C [address] [place] [address] 887735 Physician Maintenance Worker Surgery 09/04/23 Lakshmi Wilhelm PA-C [address] [place] [address]102 Physician Maintenance Worker Urology 09/16/23 documented as of this encounter
--- OUTSIDE RECORDS SUMMARY | 2023-10-31 20:49 | XMS_ITS | Encounter Summary ---
Author Organization [facility] Address [address] [place] [address] Care Team Providers Care Water Mechanic Name Role Phone Carlos Joyner MD Unavailable [phone] Jadon Murray MD Unavailable [phone] Maru Villagomez RN Unavailable Unavailable Ignacia Duran MD Primary Care Provider [phone] Carlos Joyner MD Unavailable +[phone] Ang Slade MD Unavailable [phone] Ang Slade MD Unavailable [phone] Carlos Joyner MD Unavailable +[phone] Annalise Orta-C Unavailable [phone] Ang Slade MD Unavailable [phone] Lakshmi Wilhelm-C Unavailable [phone] Heladio Willoughby MD Primary Care Provider [phone] Heladio Willoughby MD Unavailable Alissa Perez-C Unavailable [phone] Lakshmi Wilhelm-C Unavailable [phone] Reason for Visit * Reason Onset Date Comments Call Back 06/07/2020 Stent FYI Encounter Details Date Type Department Care Team (Late st Contact Info) Description 06/07/2020 [facility] Urology [address] 4th [place] [address] Ang Slade MD 420 [facility] 394 [place] [address] Call Back (Stent FYI) Social History Tobacco Use Types Packs/Day Years Used Date Smoking Tobacco: Never Smokeless Tobacco: Never PHQ-2 Answer Date Recorded PHQ-2 Score 0 12/13/2019 Sex and Gender Information Value Date Recorded Sex Assigned at Not on file Gender Identity Not on file Sexual Orientation Not on file documented as of this encounter Miscellaneous Notes * Telephone Encounter - Marcelina Medley LPN - 06/07/2020 3:31 PM CST Called them back message sent to lamar reyna SPECIALIST * Telephone Encounter - Zo Geiger - 06/07/2020 3:16 PM CST [facility] Phone Message May a detailed message be left on voicemail: yes Reason for Call: Other: Cristine calling to let us know that Laina's stent was put in by a providerat [facility] in the Emergency room on 02/04. Cristine is hoping to get a call back to discuss. Action Taken: Message routed to: [facility] Urology Travel Screening: Not Applicable SPECIALIST documented in this encounter Plan of Treatment Upcoming Encounters Date Type Department Care Team (Late st Contact Info) Description 11/26/2023 PRE VISIT [facility] [address] [phone] Alissa Perez PA-C [address] [place] [address] Previsit 12/08/2023 9:30 AM CDT Office Visit [facility] [address] [phone] [place] [address] [facility] [place] [address] Alissa Perez PA-C 500 [place], [place] 769715 documented as of this encounter Visit Diagnoses Not on filedocumented in this encounter Additional Health Concerns Infection Onset Date Last Indicated Resolved Time MRSA Comment:Added from external infection. Pt has had Staph infections but never MRSA from Care everywhere chart review. Removing MRSA 02.06.23 06/17/2019 02/06/2023 9:41 AM C DT documented as of this encounter Care Teams Water Mechanic Relationship Specialty Start Date End Date Ignacia Duran MD PCP - General Pediatrics 01/20/20 03/04/23 [place] [address] [place] [address] PCP - General 03/05/23 Carlos Joyner MD [address] [place] [address] 147415 Urology 12/09/19 Jadon Murray MD [facility] [address] [address] Referring Physician Pediatric Surgery 12/09/19 Maru Villagomez, RN Registered Nurse 12/10/19 Carlos Joyner MD [address] [place] [address] 92788 Assigned Surgical Provider 03/17/20 08/12/20 Ang Slade MD [address] [place] [address] Urology 04/24/20 Ang Slade MD [address] [place] [address] 21726 Assigned Surgical Provider 08/13/20 12/23/20 Carlos Joyner MD [address] [place] [address] 61464 Assigned Surgical Provider 12/24/20 Annalise Orta PA-C [address] [place] [address] Assigned Cancer Care Provider 05/13/21 11/01/22 Ang Slade MD [address] [place] [address] 64185 Urology 12/18/22 Lakshmi Wilhelm PA-C [address] [place] [address] 200685 Physician Storage Consultant Urology 02/03/23 [place] [address] [place] [address] Assigned PCP 02/06/23 Alissa Perez PA-C [address] [place] [address] 647095 Physician Storage Consultant Surgery 09/04/23 Lakshmi Wilhelm PA-C [address] [place] [address] 522235 Physician Storage Consultant Urology 09/16/23 documented as of this encounter
--- OUTSIDE RECORDS SUMMARY | 2023-10-31 20:49 | XMS_ITS | Encounter Summary ---
Author Organization [place] Address [address] [place] [address] Care Team Providers Care Pest Control Applicator Name Role Phone Carlos Joyner MD Unavailable [phone] Jadon Murray MD Unavailable [phone] Maru Villagomez RN Unavailable Unavailable Ignacia Duran MD Primary Care Provider [phone] Carlos Joyenr MD Unavailable [phone] Ang Slade MD Unavailable [phone] Ang Slade MD Unavailable [phone] Carlos Joyner MD Unavailable [phone] Annalise Orta-C Unavailable [phone] Ang Slade MD Unavailable [phone] Lakshmi Wilhelm-C Unavailable [phone] Heladio Willoughby MD Primary Care Provider [phone] Heladio Willoughby MD Unavailable Alissa Perez-C Unavailable [phone] Lakshmi Wilhelm-C Unavailable [phone] Reason for Visit * Reason Comments Orders Encounter Details Date Type Department Care Team (Late st Contact Info) Description 02/02/2020 Orders Only [facility] Inst for Prostate and Urologic Cancers [address] [facility] [address] [place] [address] Maru Villagomez, RN Social History Tobacco Use Types Packs/Day [...] have Coronavirus / COVID-19? No / Unsure 01/16/2020 10:29 AM CDT documented as of this encounter Plan of Treatment Upcoming Encounters Date Type Department Care Team (Late st Contact Info) Description 11/26/2023 PRE VISIT [facility] [address] [phone] Alissa Perez PA-C [address] [place] [address] [id number] Previsit 12/08/2023 9:30 AM CDT Office Visit [facility] [address] [phone] [place] [address] [place] [address] Alissa Perez PA-C [address] [place], [place] [phone] documented as of this encounter Visit Diagnoses Not on filedocumented in this encounter Additional Health Concerns Infection Onset Date Last Indicated Resolved Time MRSA Comment:Added from external infection. Pt has had Staph infections but never MRSA from Care everywhere chart review. Removing MRSA 02.06.23 06/17/2019 02/06/2023 9:41 AM C DT documented as of this encounter Care Teams Pest Control Applicator Relationship Specialty Start Date End Date Ignacia Duran MD PCP - General Pediatrics 01/20/20 03/04/23 [place] [address] [facility] [address] PCP - General 03/05/23 Carlos Joyner MD [address] [place] [address] Urology 12/09/19 Jadon Murray MD [facility] [address] [facility] [address] [place] [address] Referring Physician Pediatric Surgery 12/09/19 Maru Villagomez, RN Registered Nurse 12/10/19 Carlos Joyner MD [address] [place] [address] Assigned Surgical Provider 03/17/20 08/12/20 Ang Slade MD [address] [facility] [address] [place] [address] Urology 04/24/20 Ang Slade MD [address] [facility] [address] [place] [address] Assigned Surgical Provider 08/13/20 12/23/20 Carlos Joyner MD [address] [place] [address] Assigned Surgical Provider 12/24/20 Annalise Orta PA-C [address] [place] [address] Assigned Cancer Care Provider 05/13/21 11/01/22 Ang Slade MD [address] [place] [address] [id number] Urology 12/18/22 Lakshmi Wilhelm PA-C [address] [place] [address] 900535 Physician Quality Measurement Specialist Urology 02/03/23 [place] [address] [place] [address] Assigned PCP 02/06/23 Alissa Perez PA-C [address] [place] [address] 314805 Physician Quality Measurement Specialist Surgery 09/04/23 Lakshmi Wilhelm PA-C [address] [place] [address] [id number] Physician Quality Measurement Specialist Urology 09/16/23 documented as of this encounter
--- OUTSIDE RECORDS SUMMARY | 2023-10-31 20:49 | XMS_ITS | Encounter Summary ---
Author Organization [place] Address [address] [place] [address] Care Team Providers Care Facility Manager Histology Name Role Phone Carlos Joyner MD Unavailable [phone] Jadon Murray MD Unavailable [phone] Maru Villagomez RN Unavailable Unavailable Ignacia Duran MD Primary Care Provider Ang Slade MD Unavailable [phone] Carlos Joyner MD Unavailable [phone] Annalise Orta-C Unavailable [phone] Ang Slade MD Unavailable [phone] Lakshmi Wilhelm-C Unavailable [phone] Heladio Willoughby MD Primary Care Provider [phone] Heladio Willoughby MD Unavailable Alissa Perez PA-C Unavailable [phone] Lakshmi Wilhelm PA-C Unavailable [phone] Encounter Details Date Type Department Care Team (Late st Contact Info) Description 06/19/2021 [facility] [address] [phone] Jenna Mcfadden, OTILIO Social History Tobacco Use Types Packs/Day [...] COVID-19? No / Unsure 06/19/2021 11:16 AM SOUND TECHNICIAN SUPERVISOR documented as of this encounter Plan of Treatment Upcoming Encounters Date Type Department Care Team ([facility] st Contact Info) Description 11/26/2023 PRE VISIT [facility] [address] [phone] Alissa Perez PA-C [address] [place] [address] 456805 Previsit 12/08/2023 9:30 AM CDT Office Visit [facility] [address] [phone] [place] [address] [place] [address] Alissa Perez PA-C [address] [place] [address] [phone] documented as of this encounter Visit Diagnoses Not on filedocumented in this encounter Additional Health Concerns Infection Onset Date Last Indicated Resolved Time MRSA Comment:Added from external infection. Pt has had Staph infections but never MRSA from Care everywhere chart review. Removing MRSA 02.06.23 06/17/2019 02/06/2023 9:41 AM C DT documented as of this encounter Care Teams Facility Manager Histology Relationship Specialty Start Date End Date Ignacia Duran MD PCP - General Pediatrics 01/20/20 03/04/23 [place] [address] [address] [address] PCP - General 03/05/23 Carlos Joyner MD [address] [place] [address] Urology 12/09/19 Jadon Murray MD [facility] [address] [facility] [address] [place] [address] Referring Physician Pediatric Surgery 12/09/19 Maru Villagomez, RN Registered Nurse 12/10/19 Ang Slade MD [address] [place] [address] Urology 04/24/20 Carlos Joyner MD [address] [place] [address] Assigned Surgical Provider 12/24/20 Annalise Orta PA-C [address] [place] [address] Assigned Cancer Care Provider 05/13/21 11/01/22 Ang Slade MD [address] [place] [address] Urology 12/18/22 Lakshmi Wlihelm PA-C [address] [place] [address] 784145 Physician Agriculture Instructor Urology 02/03/23 [place] [address] [facility] [place] [address] Assigned PCP 02/06/23 Alissa Perez PA-C [address] [place], [place] [address] Physician Agriculture Instructor Surgery 09/04/23 Lakshmi Wilheml PA-C [address] [place] [address] Physician Agriculture Instructor Urology 09/16/23 documented as of this encounter
[2023-10-31 21:11] VITALS: BP 122/68; PULSE 85; RESP 18; TEMP 36.7; O2SAT 99
[2023-10-31 21:12] VITALS: BP 122/68; PULSE 85; RESP 18; TEMP 36.7
== END 2023-10-31 21:12 | disposition home or self-care (01) ==
PROVIDERS: Emergency Provider Emergency Medicine; PCP Pediatrics
DX: H60.92 Unspecified otitis externa, left ear (principal)
CPT/HCPCS: 99282; 99283

== ENCOUNTER 2024-01-21 15:45 | Outpatient (RCR) | payer MEDICAID, MEDICARE, BC, SELFPAY | END 2024-04-26 09:08 | disposition home or self-care (01) | PROVIDERS: PCP Pediatrics; Visit Provider Pediatrics | DX: M62.81 Muscle weakness (generalized) (principal); Z51.89 Encounter for other specified aftercare | CPT/HCPCS: 97110; 97140; 97162 ==

== ENCOUNTER 2024-02-05 14:49 | Emergency (ER) | payer MEDICARE, BC, MEDICAID, SELFPAY ==
[2024-02-05] VITALS (33 sets, daily range): BP systolic 98–131; BP diastolic 73–100; PULSE 79–132; RESP 18; TEMP 39.2; O2SAT 96–99; BMI 30.3
--- NOTE | 2024-02-05 15:13 | ED.GENADULT ---
HPI - General Adult General Time Seen by Provider: 15:13 Date Seen: 02/05/24 Chief complaint: Abdominal Pain Stated complaint: UTI symptoms Time Seen by Provider: 02/05/24 15:13 Source: patient and RN notes reviewed Mode of arrival: ambulatory Limitations: no limitations History of Present Illness HPI narrative: This 23-year-old paraplegic female is coming in with complaint of headache, right-sided abdominal pain and foul-smelling urine. The abdominal pain started today. She has had a little bit of nasal congestion but no cough. Fever is noted at 102.5, unclear when fevers started for her. She has had a history of urinary tract infections, history of kidney stones, has a solitary kidney. 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 She is here with a care provider. They have not given her anything for her fever. Related Data Home Medications ?Medication ?Instructions ?Recorded ?Confirmed oxybutynin chloride 5 mg tablet 5 mg PO BID 07/21/22 10/31/23 indapamide 1.25 mg tablet 1.25 mg PO QAM 10/31/23 10/31/23 potassium chloride 10 mEq 10 meq PO BID 10/31/23 10/31/23 tablet,extended release(part/cryst) Previous Rx's ?Medication ?Instructions ?Recorded cephalexin 500 mg tablet 500 mg PO TID #21 tabs 02/05/24 nirmatrelvir 300 mg (150 mg See Rx Instructions PO .COMPLEX 02/05/24 x2)-ritonavir 100 mg tablet,dose #30 ea pack (Paxlovid) sulfamethoxazole 800 1 tab PO BID #14 tabs 02/08/24 mg-trimethoprim 160 mg tablet (Bactrim DS) Allergies Allergy/AdvReac Type Severity Reaction Status Date / Time ibuprofen Allergy Intermediate 1 Kidney Verified 10/31/23 19:52 vancomycin Allergy Intermediate Swapnil Verified 10/31/23 19:52 Syndrome latex Allergy Mild Rash Verified 10/31/23 19:52 Review of Systems Status of ROS: Reports: unobtainable due to medical condition Narrative: Care provider gives the majority of her history, patient is not feeling well, is alert and will give me yes no answers, points to her abdomen for where her pain is. [facility] Medical History (Updated 02/05/24 @ 20:56 by Jalyn Johnston MD) Spina bifida ?Q05.9 - Spina bifida, unspecified (ICD-10) Social History Smoking Status: Never smoker Do you use any of these nicotine containing products: None How often do you have a drink containing alcohol: never AUDIT-C Alcohol total score: 0 Non-prescribed substance use: denies use service: No Exam Const: Vital Signs, click to edit/add: Vital Signs - 24 hr 02/05/24 14:52 02/05/24 16:22 02/05/24 16:23 Temperature 102.5 F H Pulse Rate 120 H 124 H Pulse Rate [Right Pulse Oximeter] 132 H Respiratory Rate 18 Blood Pressure 131/85 Blood Pressure [Le ft Upper Arm] 124/79 Pulse Oximetry 96 98 97 Oxygen Delivery Me thod Room Air 02/05/24 16:30 02/05/24 16:31 02/05/24 16:45 Temperature Pulse Rate 116 H 110 H 121 H Pulse Rate [Right Pulse Oximeter] Respiratory Rate Blood Pressure 126/78 Blood Pressure [Le ft Upper Arm] Pulse Oximetry 98 98 98 Oxygen Delivery Me thod 02/05/24 16:46 02/05/24 17:00 02/05/24 17:04 Temperature Pulse Rate 126 H 132 H 123 H Pulse Rate [Right Pulse Oximeter] Respiratory Rate Blood Pressure Blood Pressure [Le ft Upper Arm] Pulse Oximetry 98 98 97 Oxygen Delivery Me thod 02/05/24 17:15 02/05/24 17:16 02/05/24 17:24 Temperature Pulse Rate 107 H 106 H 126 H Pulse Rate [Right Pulse Oximeter] Respiratory Rate Blood Pressure Blood Pressure [Le ft Upper Arm] Pulse Oximetry 97 97 99 Oxygen Delivery Me thod 02/05/24 17:30 02/05/24 17:45 02/05/24 18:00 Temperature Pulse Rate 108 H 107 H 112 H Pulse Rate [Right Pulse Oximeter] Respiratory Rate Blood Pressure Blood Pressure [Le ft Upper Arm] Pulse Oximetry 97 97 98 Oxygen Delivery Me thod 02/05/24 18:15 02/05/24 18:30 02/05/24 18:45 Temperature Pulse Rate 112 H 79 114 H Pulse Rate [Right Pulse Oximeter] Respiratory Rate Blood Pressure Blood Pressure [Le ft Upper Arm] Pulse Oximetry 96 98 98 Oxygen Delivery Me thod 02/05/24 19:00 02/05/24 19:11 02/05/24 19:12 Temperature Pulse Rate 116 H 108 H 106 H Pulse Rate [Right Pulse Oximeter] Respiratory Rate Blood Pressure 113/73 Blood Pressure [Le ft Upper Arm] Pulse Oximetry 98 98 98 Oxygen Delivery Me thod 02/05/24 19:15 02/05/24 19:41 02/05/24 19:46 Temperature Pulse Rate 111 H 115 H 109 H Pulse Rate [Right Pulse Oximeter] Respiratory Rate Blood Pressure Blood Pressure [Le ft Upper Arm] Pulse Oximetry 98 98 98 Oxygen Delivery Me thod 02/05/24 20:00 02/05/24 20:02 02/05/24 20:15 Temperature Pulse Rate 98 100 101 H Pulse Rate [Right Pulse Oximeter] Respiratory Rate Blood Pressure 110/90 H Blood Pressure [Le ft Upper Arm] Pulse Oximetry 98 98 99 Oxygen Delivery Me thod 02/05/24 20:30 02/05/24 20:32 Temperature Pulse Rate 118 H 105 H Pulse Rate [Right Pulse Oximeter] Respiratory Rate Blood Pressure 123/100 H Blood Pressure [Le ft Upper Arm] Pulse Oximetry 98 98 Oxygen Delivery Me thod Patient is sitting in her wheelchair, cheeks are flushed, she is breathing independently and awake but certainly looks like she does not feel well. Sclera clear, mildly tachypneic, lungs sound clear. No drainage from her nares. CV fast but regular, do not hear murmur. She currently is in her wheelchair, cannot feel any right abdominal pain but she is somewhat hunched over in her wheelchair. She is paraplegic. Documenting provider has reviewed patient's vital signs: yes Course Course ED Course: Reviewed with them that I am concerned given the history the kidney stones. We absolutely need to rule out infected kidney stone is in etiology, this really is a surgical emergency if we find this. They understand that we cannot treat that here. She could have pyelonephritis. She could have concomitant COVID. We are going to have to do catheterized specimen per their report, will get nursing staff to work on this. Will get her 1000 mg oral Tylenol for fever control, she does think she will be able to take it. Will get full complement of labs including a single blood culture due to the shortage. I will initiate a L of fluids at this time, have ordered a CT of her abdomen pelvis with IV contrast. Reevaluation(s) Time of Reevaluation #1: 16:47 Reevaluation #1: Have reviewed with them that medicine has come back COVID positive. She believes she probably got this from school. Her underlying disorder is not multiple sclerosis, it is spina bifida but there is a family history of multiple sclerosis. Time of Reevaluation #2: 17:04 Reevaluation #2: Patient's IV infiltrated, anesthesia has been called to try another IV start. Her urinalysis is showing evidence of infection with nitrite positivity. Have ordered IV Rocephin, her white blood count is normal. We do need to proceed with CT imaging. 5:25 p.m.: Anesthesia has arrived and will look for IV placement for us. 6:35 p.m.: Anesthesia cannot find an IV site, have tried multiple times. We will proceed with IM Rocephin, do noncontrast CT. Her care provider is requesting that she be allowed to eat. We will go ahead and allow her to eat. Time of Reevaluation #3: 20:34 Reevaluation #3: CT is finally back and did review this with them, provided them a copy. Her care providers worried that she is weak, usually transfers herself from her wheelchair to bed. They do have a Clementina at home, she does have round the clock care but her provider is worried she might need 2 to transfer. She does catheterization every 4 hours. We will do this now. They have requested that I ask the hospitalist if she would qualify for hospitalization, I did do so but the hospitalist does agree with me. She does not have an IV, we were unable to get IV access. Patient does admit that she is feeling better and feels that she would be okay to go home. Did discuss with them if she truly is so weak that she cannot return home, we can place her into the hospital but it would be likely that she might need a rehabilitation stay somewhere. They would like to try to go home at this point. We will get the catheterization done an empty her bladder. I will have patient see how she feels mobilizing from the bed back to her wheelchair. We discussed she will need oral antibiotic starting tomorrow as well as treatment for COVID. We do not carry that here, they should get this picked up as soon as possible tomorrow and start. We discussed that the Paxlovid is a time dependent medication, the quicker it is started, seems to have better response. She should not take it if she cannot get it within 5 days of onset of symptoms. We did go over side effects of this medicine as well. There where that we will be culturing her urine to ensure we do have her on an appropriate antibiotic. Vital Signs Vital signs: Initial Vital Signs Temperature 102.5 F H 02/05/24 14:52 Temperature Source Temporal Artery Scan 02/05/24 14:52 Pulse Rate 132 H 02/05/24 14:52 Pulse Rhythm Regular 02/05/24 14:52 Pulse Strength 3+ Normal 02/05/24 14:52 Respiratory Rate 18 02/05/24 14:52 Blood Pressure 124/79 02/05/24 14:52 Blood Pressure Mean 94 02/05/24 14:52 Blood Pressure Position Sitting 02/05/24 14:52 Pulse Oximetry 96 02/05/24 14:52 Oxygen Delivery Method Room Air 02/05/24 14:52 Vital Signs Temperature 102.5 F H 02/05/24 14:52 Pulse Rate 132 H 02/05/24 14:52 Respiratory Rate 18 02/05/24 14:52 Blood Pressure 124/79 02/05/24 14:52 Pulse Oximetry 96 02/05/24 14:52 Oxygen Delivery Method Room Air 02/05/24 14:52 Temperature 102.5 F H 02/05/24 14:52 Pulse Rate 97 02/05/24 21:02 Respiratory Rate 18 02/05/24 14:52 Blood Pressure 98/74 02/05/24 21:02 Pulse Oximetry 97 02/05/24 21:02 Oxygen Delivery Method Room Air 02/05/24 14:52 Medications Administered Medications: Discontinued Medications Generic Name Dose Route Start Last Admin Trade Name Freq PRN Reason Stop Dose Admin Acetaminophen 1,000 mg 02/05/24 15:18 02/05/24 16:22 Acetaminophen 500 Mg Tablet PO 02/05/24 15:19 1,000 mg ONCE ONE Administration Ceftriaxone Sodium 1 gm 02/05/24 18:36 02/05/24 19:06 Ceftriaxone 1 Gm Vial IM 02/05/24 18:37 1 gm ONCE ONE Administration Sodium Chloride 1,000 mls @ 1,000 mls/hr 02/05/24 15:20 02/05/24 16:25 0.9 % Sodium Chloride 1000 Ml IV 02/05/24 16:19 Infused .Q1H VAIBHAV Infusion Ceftriaxone Sodium 1 gm/ 100 mls @ 200 mls/hr 02/05/24 17:03 02/05/24 18:38 Sodium Chloride IVPB 02/05/24 17:04 Not Given ONCE ONE Lidocaine HCl 2.1 ml 02/05/24 18:36 02/05/24 19:09 Lidocaine 1% 5 Ml (Pf) 5 Ml Vial IM 2.1 ml DIRECTED PRN Administration Pain Medical Decision Making Lab Data Lab results reviewed: Yes I reviewed the patient's lab results Labs: Lab Results 02/05/24 02/05/24 02/05/24 Range/Units 16:03 16:08 16:15 WBC 6.73 (4.50-11.00) K/uL RBC 4.86 (4.00-5.20) m/uL Hgb 14.7 (12.0-16.0) gm/dL Hct 44.5 (33.0-51.0) % MCV 92 (80-100) fL MCH 30 (26-34) pg MCHC 33 (32-36) gm/dL RDW Coeff of Kimber 12.2 (11.5-15.5) % Plt Count 186 (140-440) K/uL Neut % (Auto) 83.0 H (42.0-72.0) % Lymph % (Auto) 5.9 L (20-44) % [place] % (Auto) 9.7 (0.0-11.0) % Eos % (Auto) 1.0 (0.0-7.0) % Baso % (Auto) 0.3 (0.0-3.0) % Neut # (Auto) 5.60 (1.7-7.0) K/uL Lymph # (Auto) 0.40 L (0.90-2.90) K/uL [place] # (Auto) 0.70 (0.00-0.90) K/UL Eos # (Auto) 0.07 (0.00-0.50) K/uL Baso # (Auto) 0.02 (0.00-0.30) K/uL Abs Immat Gran (auto) 0.01 (0.00-0.30) K/uL Imm/Tot Granulo (auto) 0.1 % Sodium 134 L (135-149) mmol/L Potassium 3.7 (3.6-5.1) mmol/L Chloride 101 (96-114) mmol/L Carbon Dioxide 22 (20-32) mmol/L Anion Gap 11 (7-15) mEq/L BUN 13 (5-24) mg/dL Creatinine 0.4 L (0.5-1.5) mg/dL Estimated Creat Clear 215.07 Estimated GFR 144 ml/min Glucose 91 (60-115) mg/dL Lactate 0.7 (0.5-1.9) mmol/L Calcium 9.2 (8.4-10.6) mg/dL Total Bilirubin 0.5 (0.1-1.5) mg/dL AST 24 (12-35) U/L ALT 13 (4-35) U/L Alkaline Phosphatase 80 (40-150) U/L C-Reactive Protein 1.9 H (0.5-1.0) mg/dL Total Protein 7.4 (6.0-8.3) g/dL Albumin 4.4 (3.3-5.0) g/dL Urine Color Yellow (Yellow) Urine Appearance Clear (Clear) Urine pH 6.5 (5.0-8.5) Ur Specific Hana 1.015 (1.000-1.030) Urine Protein Negative (Negative) Urine Glucose (UA) Negative (Negative) Urine Ketones Negative (Negative) Urine Blood Negative (Negative) Urine Nitrite Positive A (Negative) Urine Bilirubin Negative (Negative) Urine Urobilinogen 0.2 (0.2-1.0) Ur Leukocyte Esterase 3+ A (Negative) Urine RBC 0-2 (0-2) Urine WBC 2-5 (0-5) Ur Squamous Epith Cells None (None-Few) Urine Bacteria Few A (None) SARS-CoV-2 (PCR) POSITIVE SARS-CoV-2 A (Negative) Imaging Data CT scan - abdomen: Attestation: I have reviewed the pertinent imaging results. Radiologist's impression: Patient: GERMAIN CARNES Facility:?[facility] Patient ID:?[id number] Site Patient ID:?[id number]. Site :?[id number] Study:?CT-Abdomen/Pelvis W/O-02/05/2024 7:45:23 PM Ordering Physician:Peggy Gunderson Final Report: INDICATION: right abd pain, fever, ?pyelo, hx stones. TECHNIQUE: CT abdomen and pelvis without contrast. COMPARISON: November 30, 2019. FINDINGS: Limited evaluation of the intra-abdominal solid organs without IV contrast. Lower chest: Left lower lobe subpleural linear opacities likely atelectasis or scarring. Liver: Normal in size and attenuation. No suspicious masses. Gallbladder and bile ducts: No stones or inflammation. No biliary dilatation. Pancreas: Unremarkable. No mass or inflammation. Spleen: Normal in size. No masses. Adrenal glands: Normal in size. No nodules. Kidneys: The horseshoe kidney is noted. Bilateral renal stones are identified, nonobstructive. Mild bilateral hydronephrosis. No significant hydroureter. No obstructing stones identified. GI tract: Unremarkable. Normal in caliber. No sign of mass or inflammation. Normal appendix. Vasculature: Abdominal aorta is normal in caliber. Lymph nodes: No lymphadenopathy. Peritoneum/Abdominal Wall: Unremarkable. No sign of mass or infiltration. No free air or significant free fluid. Pelvis: Distention of the bladder. Uterus is unremarkable. Bones: Lumbar spine fixation hardware. Hardware appears intact without evidence of hardware fracture or loosening. Diffuse degenerative changes throughout the spine. Coarse calcifications adjacent to the proximal left femur may be related to prior trauma. IMPRESSION: 1. Redemonstrated horseshoe kidney with mild bilateral hydronephrosis. No hydroureter. No obstructive stones identified. Multiple bilateral nonobstructive stones similar to prior. 2. Distended bladder. 3. Otherwise, no acute intra-abdominal process identified. Please note that all CT scans at this facility use dose modulation, iterative reconstruction, and/or weight-based dosing when appropriate to reduce radiation dose to as low as reasonably achievable. Dictated by Bety Murcia MD @ 02/05/2024 8:32:47 PM (Electronic Signature) Discharge Plan Discharge Clinical Impression: COVID-19, Urinary tract infection Patient Disposition: Home, Self-Care Condition: Improved Instructions: COVID-19 (Coronavirus Disease 2019) (ED) Additional Instructions: Next dose of antibiotics due tomorrow morning, try to get 3 doses in tomorrow and take as prescribed. We will contact you if the urine does grow anything that should require an antibiotic change. For your COVID, start the Paxlovid as soon as possible tomorrow, try to get 2 doses of this medicine in. This may have interactions with your indapamide and oxybutynin. You may need to take these 2 medicines every other day or potentially hold them while you complete the Paxlovid. The interaction with Paxlovid and indapamide can be to lower your blood pressure too much. I would recommend following your blood pressure and it is significantly lower while on both of these medicines, hold the indapamide. There can be increased anticholinergic affects of the oxybutynin as in interaction, these can include such things as hallucinations come agitation, confusion, sleepiness. This very well may not happen at all but monitor for this. Review handouts. If you are not improving, feel you are worsening at any point to have concerns about these illnesses and her health, please seek re-evaluation. Use Tylenol 1000 mg 3 times a day for fever management. Activity Level: No Restrictions Discharge Diet: Regular Prescriptions: New Paxlovid 300 mg (150 mg x 2)-100 mg tablets,dose pack See Rx Instructions .ROUTE .COMPLEX Qty: 30 0RF Rx Instructions: take TWO 150 mg tablets of nirmatrelvir with ONE 100 mg tablet of ritonavir twice daily for 5 days cephalexin 500 mg tablet 500 mg PO TID Qty: 21 0RF sulfamethoxazole-trimethoprim [Bactrim DS] 800-160 mg tablet 1 tab PO BID Qty: 14 0RF No Action oxybutynin chloride 5 mg tablet 5 mg PO BID Patient Comments: TAKE ONE TABLET BY MOUTH TWICE DAILY indapamide 1.25 mg tablet 1.25 mg PO QAM potassium chloride 10 mEq tablet,ER particles/crystals 10 meq PO BID Follow Up/Referrals: Ignacia Duran MD [Primary Care Provider] - Stand Alone Forms: [facility] Inst[facility]
--- NOTE | 2024-02-05 15:18 | CRLHL7_ITS ---
For Patients: As a result of the Century Cures Act, medical imaging exams and procedure reports are released immediately into your electronic medical record. You may view this report before your referring provider. If you have questions, please contact your health care provider. INDICATION: right abd pain, fever, ?pyelo, hx stones. TECHNIQUE: CT abdomen and pelvis without contrast. COMPARISON: November 30, 2019. FINDINGS: Limited evaluation of the intra-abdominal solid organs without IV contrast. Lower chest: Left lower lobe subpleural linear opacities likely atelectasis or scarring. Liver: Normal in size and attenuation. No suspicious masses. Gallbladder and bile ducts: No stones or inflammation. No biliary dilatation. Pancreas: Unremarkable. No mass or inflammation. Spleen: Normal in size. No masses. Adrenal glands: Normal in size. No nodules. Kidneys: The horseshoe kidney is noted. Bilateral renal stones are identified, nonobstructive. Mild bilateral hydronephrosis. No significant hydroureter. No obstructing stones identified. GI tract: Unremarkable. Normal in caliber. No sign of mass or inflammation. Normal appendix. Vasculature: Abdominal aorta is normal in caliber. Lymph nodes: No lymphadenopathy. Peritoneum/Abdominal Wall: Unremarkable. No sign of mass or infiltration. No free air or significant free fluid. Pelvis: Distention of the bladder. Uterus is unremarkable. Bones: Lumbar spine fixation hardware. Hardware appears intact without evidence of hardware fracture or loosening. Diffuse degenerative changes throughout the spine. Coarse calcifications adjacent to the proximal left femur may be related to prior trauma. IMPRESSION: 1. Redemonstrated horseshoe kidney with mild bilateral hydronephrosis. No hydroureter. No obstructive stones identified. Multiple bilateral nonobstructive stones similar to prior. 2. Distended bladder. 3. Otherwise, no acute intra-abdominal process identified. Please note that all CT scans at this facility use dose modulation, iterative reconstruction, and/or weight-based dosing when appropriate to reduce radiation dose to as low as reasonably achievable. Dictated by Bety Murcia MD @ 02/05/2024 8:32:47 PM (Electronically Signed)
[2024-02-05] MEDS: 0.9 % SODIUM CHLORIDE 1000 ml 1,000 ML IV (16:00)
--- OUTSIDE RECORDS SUMMARY | 2024-02-05 16:04 | XMS_ITS | Clinical Summary ---
Author Organization [facility] Address [place], [place] [address] Care Team Providers Care Header Dock Name Role Phone Ignacia Duran MD Primary [...] recurrent major depressive d isorder 11/23/2018 S/P ACCOUNT SUPPORT REP shunt 04/29/2011 UTI (urinary tract infection) 04/24/2011 Paraplegia 02/21/2009 Spina bifida of dorsal region 02/21/2009 Resolved Problems Problem Noted Date Diagnosed Date Resolved Date Adjustment disorder with mix ed disturbance of emotions and conduct 07/04/2011 11/23/2018 Immunizations Name Administration Dates Next Due DTaP 01/18/2008,05/06/2005 PAgQ-BdeE-EUT (Pediarix) 05/27/2003,03/21/2003,0 2002 HIB PRP-T (ActHIB,Hiberix) 05/27/2003,03/21/2003 [...] years) 06/09/19 14,04/23/2012,02/25/2011,02/21,03/23/2007,03/30/2004 Influenza, IIV4 03/27/2021, 0,06/17/2019,03/06,02/26/2016,04/27/2014 MENINGOCOCCAL VACCINE 2 VIAL 2MO-55YO (MENVEO) 06/17/2019,01/16/2015 MMR 01/18/2008,09/15/2003 Pneumococcal conj 7-Valent (Prevnar 7) 4,03/21/2003,2002 Tdap [...] Comments Blood Pressure 123/80 07/12/2021 1:30 PM SENIOR SQL SERVER DBA Pulse 98 07/12/2021 1:30 PM SENIOR SQL SERVER DBA Temperature 36.9 ??C (98.5 ??F) 07/12/2021 1:30 PM CS T Respiratory Rate 18 07/03/2015 5:27 PM SENIOR SQL SERVER DBA Oxygen Saturation 98% 07/12/2021 1:30 PM SENIOR SQL SERVER DBA Inhaled Oxygen Concentration - - Weight 61.2 kg (135 lb) 07/03/2015 5:27 PM SENIOR SQL SERVER DBA Height - - Body Mass Index - [...] 01/12/2021 01/13/2020, 01/11/2020, 12/29/2018, Additional history exists Pap test for age 21-65 09/17/2023 COVID-19 vaccine series ( season) 2024 05/02/2022, 03/27/2021, 09/18/2020, Additional history exists Influenza for age 9-49 01/25/2024 , 03/22/2020, 06/17/2019, Additional history exists Tetanus booster 01/16/2025 01/16/2015, 01/16/2015 Pneumococcal series for age 6-64 Aged Out 05/27/2003, 03/21/2003, 2002 No longer eligible based on patient's age to complete this topic Tdap Completed 01/16/2015, 01/16/2015 Meningococcal series for age 11-21 Completed 06/17/2019, 01/16/2015 Advance Directives Documents on File Type Date Recorded 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
--- OUTSIDE RECORDS SUMMARY | 2024-02-05 16:04 | XMS_ITS | Clinical Summary ---
Author Organization [facility] Address [address] [place] [address] Care Team Providers Care Brand Designer Name Role Phone Carlos Joyner MD Unavailable [phone] Jadon Murray MD Unavailable Maru Villagomez RN Unavailable Unavailable Ang Slade MD Unavailable [phone] Carlos Joyner MD Unavailable [phone] Ang Slade MD Unavailable Lakshmi Wilhelm-C Unavailable Heladio Willoughby MD Primary Care Provider Heladio Willoughby MD Unavailable Alissa Perez PA-C Unavailable [phone] LaLakshmi morales-C Unavailable [phone] Allergies Active Allergy Reactions Criticality Noted Date [...] ALGINATE 2X2) PADSIndications:Pres sure ulcer acquired in [facility] Externally apply 1 each topically daily [...] times daily 90 tablet 3 06/23/2023 Active gentamicin (GARAMYCIN) 40 MG/ML injection 40 mg 11/11/2023 Active oxyBUTYnin (DITROPAN) 5 MG tabletIndications:Bl adder spasms TAKE ONE TABLET BY MOUTH TWICE DAILY 180 tablet 2 12/24/2023 Active Hospital, Clinic, or Other Facility Administered Medication [...] Acute cystitis 04/04/2019 Ulcer, surgical 06/07/2011 S/P INSPECTION MANAGER shunt 04/29/2011 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) 08/04/2008 Overview: Kyphosis Neurogenic bladder 07/22/2003 Overview: LW Onset: 66Ioc03 ; Paralysis Bladder Neurogenic bowel 07/22/2003 Overview: LW Onset: 18Unc45 Paraplegia 07/22/2003 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/2003 Overview: LW Onset: 09Mmz79 ; Short Stature 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/22/2003 Overview: LW Modifier: shunted LW Onset: 81Gop91 ; Spina Bifida Lumbar w Hydrocephalus Resolved Problems Problem Noted Date Diagnosed Date Resolved Date Acute kidney failure, unspecified (H24) 02/10/2020 03/05/2023 Encounters Date Type Department Care Team Description 12/29/2023 Telephone [facility] [address] [place] [phone] Heladio Willoughby MD 12/29/2023 Telephone [facility] [address] [place] [phone] Heladio Willoughby MD Forms ([facility]) 12/26/2023 Telephone [facility] [address] [place] [phone] Heladio Willoughby MD Orders 12/19/2023 Refill [facility] [address] [phone] Carlos Joyner MD Medication Refill ( oxyBUTYnin Chloride Oral Tablet 5 MG) 12/08/2023 9:30 AM CDT Office Visit [facility] [address] [phone] Heladio Willoughby MD Yan, Jasmine, PA-C Neurogenic bowel (Primary Dx); Paraplegia (H); Thoracic spina bifida, unspecified hydrocephalus presence (H) 12/08/2023 Travel 12/05/2023 Travel 11/26/2023 PRE VISIT [facility] [address] [phone] Alissa Perez PA-C Previsit 11/11/2023 MyC Medical Advice [facility] [address] [place] [phone] Heladio Willoughby MD Paraplegia (H) (Primary Dx) from Last 3 Months Immunizations Name Administration Dates Next Due DTAP (<7y) 01/18/2008,05/06/2005 DTaP, Unspecified 01/16/2015 DTaP/HepB/IPV 05/27/2003,03/21/2003,2002 Flu, Unspecified 02/26/2016,02/21/2009, 4 H5p4-46 Novel Flu 03/18/2009 O6d3-29 Novel Flu P-free 03/30/2004,05/27/2003 HEPATITIS A (PEDS 12M-18Y) 01/18/2008,08/08/2006 HIB (PRP-T) 05/27/2003,03/21/2003,2002 HIB, Unspecified 05/27/2003,03/21/2003, 3 HPV9 04/16/2023,06/17/2019,12/18/2017 Influenza (H1N1) 03/18/2009 Influenza (IIV3) PF 06/09/2013, 2,02/25/2011,02/21,03/23/2007,03/30/2004 Influenza Vaccine 18-64 (Flublok) 03/05/2023 Influenza Vaccine >6 months,quad, PF 12/2021,03/27/2021,03/22/2020,06/17,03/06/2018,02/26/2016,04/27/2014 Influenza Vaccine, 6+MO IM (QUADRIVALENT W/PRESERVATIVES) 05/02/2022,03/27/2021 Influenza, seasonal, injectable, PF 03/27,02/25/2011,02/21/2009,03/23,03/30/2004,05/27/2003 MMR 01/18/2008,09/15/2003 Meningococcal ACWY (Menveo??) 06/17/2019, 015 [...] Answer Date Recorded Do you have housing? (Joey cordero is defined as stable permanent housing and does not include staying ouside in a car, in a tent, in an abandoned building, in an overnight mcc, or couch-surfing.) Yes 04/16/2023 Are you worried about losing [...] Sign Reading Time Taken Comments Blood Pressure 127/83 12/08/2023 9:35 AM CDT Pulse 71 12/08/2023 9:35 AM CDT Temperature 36.9 ??C (98.4 ??F) 09/02/2023 10:55 AM C DT Respiratory Rate 20 09/02/2023 10:55 AM CDT Oxygen Saturation 99% 12/08/2023 9:35 AM CDT Inhaled Oxygen Concentration - - Weight 65.8 kg (145 lb) 12/08/2023 9:35 AM CDT p t reported Height 144.8 cm (4' 9) 12/08/2023 9:35 AM CDT Body Mass Index 31.38 12/08/2023 9:35 AM CDT Plan of Treatment Health Maintenance Due Date Last Done Comments ANNUAL REVIEW OF HM ORDERS 2002 PAP 09/17/2023 INFLUENZA VACCINE (#1) 2024 , 05/02/2022, 05/02/2022, Additional history exists MEDICARE ANNUAL WELLNESS VISIT 04/16/2024 04/16/2023 DTAP/TDAP/TD [...] on patient's age to complete this topic MENINGITIS IMMUNIZATION Completed 06/17/2019, 01/16 COVID-19 Vaccine Completed 03/21/2023, 06/2020, 09/18/2020, Additional history exists HPV IMMUNIZATION Completed 04/16/2023, , 12/18/2017 PHQ-2 (once per calendar year) Completed 10/15/2023, 06/24/2023, 04/16/2023, Additional history exists RSV MONOCLONAL ANTIBODY Aged Out No l onger eligible based on patient's age to complete this topic Medical Devices Implanted Type Area Image Processing Engineer Device Identifier Shelf Expiration Date Model / Serial / Lot Stent Ureteral Percuflex Plus [id number] - [id number] Implanted:Qty: 1 on 11/12/2021 by Carlos Joyner MD at [facility] Stent Right: Abdomen [employer] [id number] 12/26/2022 [id number] Ureteral Catheter 5 Setswana Implanted:Qty: 1 on 03/31/2023 by Elizabeth Jacobsen MD at [facility] Right: Ureter 02/02/2026 [id number] / / [id number] Description:5 israeli Uretera l catheter used as a stent in right ureter 5 Setswana Open Ended Catheter Implanted:Qty: 1 on 03/31/2023 by Elizabeth Jacobsen MD at [facility] Left: Ureter 02/19/2026 [id number] / [id number] Explanted Type Area Image Processing Engineer Device Identifier Shelf Expiration Date Model / Serial / Lot Stent Ureteral Percuflex Plus [id number] - [id number] Implanted:Qty: 1 on 05/10/2021 by Carlos Joyner MD at [facility] Explanted:Qty: 1 on 08/09/2021 by Jane Gomez MD at [facility] Stent Right: Urethra [employer] 06/14/2022 [id number] Description:Ureter Stent Ureteral Percuflex Plus [id number] - [id number] Implanted:Qty: 1 on 05/10/2021 by Carlos Joyner MD at [facility] Explanted:Qty: 1 on 08/09/2021 by Jane Gomez MD at [facility] Stent Left: Urethra [employer] 07/25/2022 [id number] Stent Ureteral Percuflex Plus [id number] - [id number] Implanted:Qty: 1 on 08/09/2021 by Jane Gomez MD at [facility] Explanted:Qty: 1 on 11/12/2021 at [facility] Stent Right: Ureter [employer] 02/29/2024 [id number] Stent Ureteral Percuflex Plus [id number] - [id number] Implanted:Qty: 1 on 08/09/2021 by Jane Gomez MD at [facility] Explanted:Qty: 1 on 11/12/2021 at [facility] Stent Right: Ureter [employer] 02/29/2024 [id number] 5 Fr X 22cm Ureteral Stent Explanted:Qty: 1 on 02/07/2020 by Carlos Joyner MD at [facility] 5 Fr X 22cm Ureteral Stent Explanted:Qty: 1 on 02/07/2020 by Carlos Joyner MD at [facility] Advance Directives For more information, please contact: [phone] Documents on File Type Date Recorded Patient Private Duty Aide Expl anation Advance Directives and Living Will [...] Comments Code status determined by: Discussion with luis alberto nt/ legal decision maker * Full Code [...] Comments Code status determined by: Discussion with luis alberto nt/ legal decision maker * Full Code Date Activated Date Inactivated Comments 02/12/2020 12:41 PM 11/12/2021 12:15 PM Question Answer Comments Code status determined by: Discussion with luis alberto nt/ legal decision maker * Full Code Date Activated Date Inactivated Comments 02/05/2020 10:00 AM 02/12/2020 12:41 PM All basic and advanced life-sustaining interventions are performed as appropriate Question Answer Comments Code status determined by: Unable to dis cuss and no AD/POLST on file; continue PREVIOUSLY ORDERED code status Care Teams Brand Designer Relationship Specialty [place] [address] [place] [address] PCP - General 03/05/23 Carlos Joyner MD [address] [place] [address] Urology 12/09/19 Jadon Murray MD [facility] [address] [facility] [address] [place] [address] Referring Physician Pediatric Surgery 12/09/19 Maru Villagomez, RN Registered Nurse 12/10/19 Ang Slade MD [address] [place] [address] [phone] Urology 04/24/20 Carlos Joyner MD [address] [place] [address] [phone] Assigned Surgical Provider 12/24/20 Ang Slade MD [address] [place] [address] [phone] Urology 12/18/22 Lakshmi Wilhelm PA-C [address] [place] [address] [phone] Physician Bus [facility] 02/03/23 [place] [address] [place] [address] Assigned PCP 02/06/23 Alissa Perez PA-C [address] [place] [address] Physician Bus [facility] Surgery 09/04/23 Lakshmi Wilhelm PA-C [address] [place] [address] Physician Bus [facility] Urology 09/16/23
--- OUTSIDE RECORDS SUMMARY | 2024-02-05 16:04 | XMS_ITS | Continuity of Care Document ---
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 Neurogenic bladder(Discharge Diagnosis) - 12/29/23 Neurogenic bowel(Discharge Diagnosis) - 12/29/23 DATA TECHNICAL LEAD (ventriculoperitoneal) shunt status(Discharge Diagnosis) - 12/29/23 Wheelchair dependent(Discharge Diagnosis) - 12/29/23 Discharge Disposition: Home/Self Care Attending Physician: Alessia Rodgers MD Admitting Physician: Alessia Rodgers MD Allergies, Adverse Reactions, Alerts Substance Reaction Severity Status ibuprofen 1 Active vancomycin redmans Active Latex 2 Active 1Avoid because of reduced kidney function 2Replaced free text allergy Assessment and Plan Future Scheduled Tests Referral* External Referral Orthopedics 12/29/23 * External Referral Sleep Disorder 12/29/23 Immunizations Given and Recorded Vaccine Date Status Refusal Reason COVID-19 Vaccine - BioNTech/Pfizer Peds 05/02/22 G iven .influenza vaccine, inactive, quadvlnt 05/02/22 Gi rosalinda .influenza vaccine, inactive, quadvlnt 03/27/21 Gi rosalinda COVID-19 Vaccine - BioNTech/Pfizer 03/27/21 Given COVID-19 Vaccine - BioNTech/Pfizer 09/18/20 Given COVID-19 Vaccine - BioNTech/Pfizer 08/28/20 Given .diphtheria-pertussis,acel-tetanus adult 01/16/15 Given .influenza H1N1 virus vaccine 03/18/09 Given influenza virus vaccine, unspec form 02/21/09 Give n influenza virus vaccine, unspec form 05/27/03 Give n .diphtheria-pertussis, acel-tetanus ped 01/18/08 G iven .diphtheria-pertussis, acel-tetanus ped 05/06/05 G iven .riqcpij-xynxg-fmyjddw virus vaccine 01/18/08 Give n .mnztqjl-cqvms-uttxtdn virus vaccine 01/18/08 Give n .nbhgwbq-fryrr-tqkklxl virus vaccine 09/15/03 Give n .poliovirus vaccine, inactivated 01/18/08 Given .poliovirus vaccine, inactivated 05/06/05 Given .varicella virus vaccine 01/18/08 Given .varicella virus vaccine 09/15/03 Given .evyahjvsyl-wbnL-olykcor,ptcp-yhroh-zqh 05/27/03 G iven .uqepptxkvz-yivI-lmcnefb,qrvf-tfwux-hxu 03/21/03 G iven .pswyrshwje-ynuL-hjnmzss,ludm-xzfiv-xdt 02 G iven .haemophilus B conjugate (PRP-T) vaccine 05/27/03 Given .haemophilus B conjugate (PRP-T) vaccine 03/21/03 Given .haemophilus B conjugate (PRP-T) vaccine 02 Given .pneumococcal 7-valent vaccine 05/27/03 Given .pneumococcal 7-valent vaccine 03/21/03 Given .pneumococcal 7-valent vaccine 02 Given Medications Ex-lax Ultra 5 mg oral enteric coated tablet 10 mg = 2 TABLET PO Once, 2 tablets the night before cleanout, # 2 TABLET, 0 Refill(s), Soft Stop, Pharmacy: [facility] #[id number] Start Date: 12/29/23 Status: Ordered Fleet Enema (Adult) 19 g-7 g rectal enema See Instructions, 1 enema as needed for 48 hours with no BM, # 30 EACH, 1 Refill(s), [facility] #[id number] Start Date: 12/29/23 Stop Date: 12/28/24 Status: Ordered indapamide 1.25 mg oral tablet 0 Refill(s), Acute = falls off med list w/stop date Start Date: 12/29/23 Status: Ordered magnesium citrate 5.8% oral solution 17.45 g = 300 mL PO Once, 300 mL by mouth the morning of bowel cleanout, # 300 mL, 0 Refill(s), [id number] Start Date: 12/29/23 Status: Ordered POTASSium CHLORIDE 10 mEq oral capsule, extended release 10 mEq = 1 CAP PO BID, 0 Refill(s), Acute = falls off med list w/stop date Start Date: 12/29/23 Status: Ordered Problem List Condition Confirmation Course Effective Dates Status Health Status Informant Acute cystitis Confirmed 04/04/19 Active At risk for falls Confirmed Active Capsulitis of left shoulder Confirmed Active Pressure injury of deep tissue Confirmed Active Wheelchair dependent Confirmed Active Rectal tear Confirmed Active Labral tear of shoulder Confirmed Active History of brain shunt Confirmed Active H/O hypercalcemia Confirmed Active DATA TECHNICAL LEAD (ventriculoperitoneal ) shunt status Confirmed Active History of urinary stone Confirmed Active High Risk Sedation (CP) Confirmed Active S/P ureteral stent placement Confirmed Active Hydrocephalus Confirmed Active Wound of thigh Confirmed Active 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 Other symptoms and signs involving the nervous system Confirmed Active Neurogenic bladder Confirmed Active Neurogenic bowel Confirmed Active Open wound of right thigh Confirmed Active Pressure injury of skin of elbow Confirmed Active Pressure injury of left elbow, unstageable Confirmed Resolved Pressure injury of right heel, stage 2 Confirmed Active Pressure injury of back, stage 3 Confirmed Active Pressure injury of elbow, stage 4 Confirmed Active Spina Bifda Confirmed Active patient Spina bifida Confirmed Active Spina bifida, unspecified Confirmed Active 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 Start Date:08/22/22 End Date:02/05/23 Status:Achieved Progression:Not Met STG: Demo management of cons tipation with bowel mgmt program x 3 mths for regular bowel movement. Start Date:08/22/22 End Date:11/05/22 Status:Achieved Progression:Not Met STG:Prob. solve w/ therapist 3 strat. for diff. portions of bowel routine success 24hr/day Start Date:08/22/22 End Date: Status:Achieved Progression:Not Met STG: will reposition self in bed with modAx1 to decrease risk of pressure injury Start Date:07/18/21 End Date:07/25/21 Status:Achieved Progression:Not Met STG: will participate in PRO M of LUE 2x/day to promote increased mobility and return to PLOF Start Date:07/18/21 End Date :07/25/21 Status:Achieved Progression:Not Met PT STG BB:Family I with food/hydration/medication strategies for daily type 4/5 BM type Start Date:03/13/21 End Date:06/11/21 Status:Achieved Progression:Not Met PT STG BB: Family I with 3 v arious strategies to promote bowel plan success for 24hr/day continence Start Date:03/13/21 End Date:06/11/21 Status:Achieved Progression:Not Met STG: Will consume 1C of food with adequate oral skills and no signs of residue Start Date:03/05/21 End Date:03/09/21 Status:Achieved Progression:Not Met STG: Will consume 6oz of thi n liquid without clinical s/s of aspiration or other issue Start Date:03/05/21 End Date: Status:Achieved Progression:Not Met LTG: consume 100% of nutriti onal needs orally without clinical s/s of aspiration or other issue Start Date:03/05/21 End Date:03/12/21 Status:Achieved Progression:Not Met STG: Will complete oral care s ind while sitting EOB with min A to progress ADL ind. Start Date:03/02/21 End Date:03/16/21 Status:Achieved Progression:Met STG: Will complete UB dressi ng with min A to progress ADL ind. Start Date:03/02/21 End Date:03/16/21 Status:Achieved Progression:Met LTG: Will complete UB dressi ng IND to return to PLOF. Start Date:03/02/21 End Date:04/02/21 Status:Achieved Progression:Not Met STG: Pt will sit EOB with mo d Ax1 and upright posture for 5min to progress towards PLOF. Start Date:03/01/21 End Date:07/25/21 Status:Achieved Progression:Not Met STG: Pt will sit EOB with mi n Ax1 for 5min to progress seated stability towards PLOF Start Date:03/01/21 End Date: Status:Achieved Progression:Not Met LTG: Pt will perform IND tra nsfer from bed to hair to return to PLOF Start Date:03/01/21 End Date:04/12/21 Status:Achieved Progression:Not Met Reason for Referral spina bifida, referred to: [id number] ( ) SLEEP MEDICINE Referred by: Alessia Rodgers MD spina bifida, referred to: [id number] ( ) ORTHOPEDIC CLINIC Referred by: Alessia Rodgers MD Patient Care team information Personnel Name: Herbie Hammond MD, Lakshmi Ham Address: Address: [id number] [place] [address]
--- OUTSIDE RECORDS SUMMARY | 2024-02-05 16:04 | XMS_ITS | Patient Health Record ---
Author Organization [facility] Address [facility] [address] [place] [address] Care Team Providers Care Third Rail Installer Name Role Phone Ignacia Duran MD Primary Care Provider [phone] ADOLFO PAZ MD [phone] Reason For Referral No Information Medications Medication SIG (Take, Route, Fr equency, Duration) Notes Start Date End Date Status Gentamicin Sulfate 40 MG/ML 30ML QHS Intravesically BID for 30 days 12/30/2019 Active Problems Problem Type SNOMED Code ICD Code Onset Dates Problem Status W/U Status Risk Notes Problem 727205694 Neurogenic bladd er (N31.9) Active confirmed Problem Hydrocephalus (917897763) Hydrocephalus (G91.9) Active confirmed Problem 54182046 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 Problem 651139663 Acute pyonephros is (N13.6) Active confirmed Problem 347063299 Obesity (BMI 30-39.9) (E66.9) Active confirmed Problem 77517097 Spina bifida of lumbosacral region with 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) Active confirmed Problem 58007359 Acute pyelonephritis (N10) Active confirmed Problem Sepsis (47908864) Sepsis, due to unspecified organism (A41.9) Active confirmed Problem 70618727 Bilateral nephrolithiasis (N20.0) Active confirmed Plan Of Treatment Pending Test Test Name Order Date UDS- Flow, ru, EMG, CMG w/UA/UC and mario tion 12/02/2019 Insurance Providers Payer Name Payer Address Payer Phone Subscriber Number Group Number Insured Name Patient Relationship to Insured Coverage Start Date Coverage End Date [facility] [address] [address] [place] [phone] [id number] Fe Escudero Child - Insured has Financial Responsibility [facility] [address] [address] [place] [address] [id number] Laina Escudero Self - patient is the insured
--- OUTSIDE RECORDS SUMMARY | 2024-02-05 16:04 | XMS_ITS | Continuity of Care Document ---
Author Organization [facility] Address Unknown Care Team Providers Care Batter Out Name Role Phone Lakshmi Guzman Primary Care Physician Encounter [facility] Date(s): 01/29/24 - 01/29/24 [facility] Discharge Disposition: Home/Self Care Attending Physician: Alessia Rodgers MD Admitting Physician: Alessia Rodgers MD Allergies, Adverse Reactions, Alerts Substance Reaction Severity Status ibuprofen 1 Active vancomycin redmans Active Latex 2 Active 1Avoid because of reduced kidney function 2Replaced free text allergy Immunizations Given and Recorded Vaccine Date Status [...] iven .diphtheria-pertussis, acel-tetanus ped 05/06/05 G iven .nllghtq-leenc-avgrckp virus vaccine 01/18/08 Give n .xiexrcb-gelrn-fplpqzv virus vaccine 01/18/08 Give n .jgahjcx-adclt-taraqkx virus vaccine 09/15/03 Give n .poliovirus vaccine, inactivated 01/18/08 Given .poliovirus vaccine, inactivated 05/06/05 Given .varicella virus vaccine 01/18/08 Given .varicella virus vaccine 09/15/03 Given .egzigbwtcf-dcdM-qvdikyt,bhmd-aotpr-kck 05/27/03 G iven .ievucfpwvo-qwpN-huzjknr,jnlg-qhwvr-uls 03/21/03 G iven .ttrdfahfos-dzeB-qcjfrzy,ibyf-tqrue-dry 02 G iven .haemophilus B conjugate (PRP-T) vaccine 05/27/03 Given .haemophilus B conjugate (PRP-T) vaccine 03/21/03 Given .haemophilus B conjugate (PRP-T) vaccine 02 Given .pneumococcal 7-valent vaccine 05/27/03 Given .pneumococcal 7-valent vaccine 03/21/03 Given .pneumococcal 7-valent vaccine 02 Given Problem List Condition Confirmation Course Effective Dates Status Health Status Informant Acute cystitis Confirmed 04/04/19 Active At risk for falls Confirmed Active Capsulitis of left shoulder Confirmed Active Pressure injury of deep tissue Confirmed Active Wheelchair dependent Confirmed Active Rectal tear Confirmed Active Requires assistance with activities of daily living (ADL) Confirmed Active Labral tear of shoulder Confirmed Active History of brain shunt Confirmed Active H/O hypercalcemia Confirmed Active COMMERCIAL REVIEW APPRAISER (ventriculoperitoneal ) shunt status Confirmed Active History [...] Confirmed Active Urinary tract infection Confirmed Active COMMERCIAL REVIEW APPRAISER shunt Confirmed Active patient Social History Social History Type Response Sex [...] Start Date:03/01/21 End Date:04/12/21 Status:Achieved Progression:Not Met Patient Care team information Personnel Name: Herbie Hammond MD, Lakshmi Ham Address: Address: [address] [place] [address]
--- OUTSIDE RECORDS SUMMARY | 2024-02-05 16:04 | XMS_ITS | Continuity of Care Document ---
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 Neurogenic bladder(Discharge Diagnosis) - 01/29/24 Neurogenic bowel(Discharge Diagnosis) - 01/29/24 Wheelchair dependent(Discharge Diagnosis) - 01/29/24 Hydrocephalus(Discharge Diagnosis) - 01/29/24 DYE RANGE FEEDER (ventriculoperitoneal) shunt status(Discharge Diagnosis) - 01/29/24 Other symptoms and signs involving the nervous system(Discharge Diagnosis) - 01/29/24 Requires assistance with activities of daily living (ADL)(Discharge Diagnosis) - 01/29/24 Discharge Disposition: Home/Self Care Attending Physician: Alessia Rodgers MD Admitting Physician: Alessia Rodgers MD Referring Physician: Alessia Rodgers MD Allergies, Adverse Reactions, [...] iven .diphtheria-pertussis, acel-tetanus ped 05/06/05 G iven .njttgzq-ysntl-pcablfa virus vaccine 01/18/08 Give n .axobolr-uwzxd-rvrcbhc virus vaccine 01/18/08 Give n .ptatsap-ciudb-uqyowvg virus vaccine 09/15/03 Give n .poliovirus vaccine, inactivated 01/18/08 Given .poliovirus vaccine, inactivated 05/06/05 Given .varicella virus vaccine 01/18/08 Given .varicella virus vaccine 09/15/03 Given .ubirvlsadd-gvuZ-aqyaxee,fhjf-rqizs-qmk 05/27/03 G iven .lgcsnzssej-yjnI-dzshcqa,ndja-llurw-omt 03/21/03 G iven .jgccqjiktf-opbB-nmznysw,mrkc-tukso-flr 02 G iven .haemophilus B conjugate (PRP-T) vaccine 05/27/03 Given .haemophilus B conjugate (PRP-T) vaccine 03/21/03 Given .haemophilus B conjugate (PRP-T) vaccine 02 Given .pneumococcal 7-valent vaccine 05/27/03 Given .pneumococcal 7-valent vaccine 03/21/03 Given .pneumococcal 7-valent vaccine 02 Given Medications ClearLax oral powder for reconstitution See Instructions, 1-3 tsp as needed to maintain soft stools, # 527 g, 1 Refill(s), Maintenance, Pharmacy: [facility][id number] Start Date: 01/29/24 Status: Ordered Ex-lax Ultra 5 mg oral enteric coated tablet See Instructions, Ex-Lax Chocolate Squares: 2 to 3 squares nightly, # 50 TABLET, 1 Refill(s), Maintenance = stays on med list, Pharmacy: [facility] #[id number] Start Date: 01/29/24 Stop Date: 01/28/25 Status: Ordered Problem List Condition Confirmation Course [...] shunt Confirmed Active H/O hypercalcemia Confirmed Active DYE RANGE FEEDER (ventriculoperitoneal ) shunt status Confirmed Active History [...] Confirmed Active Urinary tract infection Confirmed Active DYE RANGE FEEDER shunt Confirmed Active patient Vital Signs Most recent to oldest [Reference Range]: 1 Chief Complaint follow up (01/29/24 10:00 AM) Pulse Rate [61-90 bpm] 100 bpm *HI* (01/29/24 10:00 AM) Blood Pressure [90-140/60-90 mm Hg] 124/ 84mm Hg (01/29/24 10:00 AM) Concerns about Pain No (01/29/24 10:00 AM) Height Method Previously charted (01/29/24 10:00 AM) Weight 66.6 kg (01/29/24 10:00 AM) DOSING WEIGHT 66.600 kg (01/29/24 10:00 AM) Social History Social History Type Response [...] Herbie Hammond MD, Lakshmi Ham Address: Address: [id number] [place] [address]
--- OUTSIDE RECORDS SUMMARY | 2024-02-05 16:04 | XMS_ITS | Continuity of Care Document ---
Author Organization [facility] is Address [address] [place] [address]- Care Team Providers Care Account Management Specialist Name Role Phone Lakshmi Guzman Primary Care Physician Encounter [employer] Date(s): 01/29/24 - 01/29/24 [facility] [address] [place], [place] [address] Discharge Disposition: Home/Self Care Attending Physician: Lakshmi Daniels PA-C Admitting Physician: Lakshmi Daniels PA-C Allergies, Adverse Reactions, Alerts Substance Reaction Severity [...] iven .diphtheria-pertussis, acel-tetanus ped 05/06/05 G iven .suizfhe-urrow-ckjmfjc virus vaccine 01/18/08 Give n .bhdmxex-ojvca-tfifkru virus vaccine 01/18/08 Give n .vvrjotq-wrzyn-mainuhr virus vaccine 09/15/03 Give n .poliovirus vaccine, inactivated 01/18/08 Given .poliovirus vaccine, inactivated 05/06/05 Given .varicella virus vaccine 01/18/08 Given .varicella virus vaccine 09/15/03 Given .yttcguincf-qsiL-sduqlcl,wnwg-gqlqn-jdb 05/27/03 G iven .ibycjailvh-cawT-ghoqafv,zwoq-mtkeg-lxi 03/21/03 G iven .kzhhutdulo-cqzS-ygnuaxu,nsxt-teuyg-bvc 02 G iven .haemophilus B conjugate (PRP-T) [...] shunt Confirmed Active H/O hypercalcemia Confirmed Active 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 Start Date:03/02/21 End Date:04/02/21 Status:Achieved Progression:Met STG: Pt will sit EOB with mo [...] Herbie Hammond MD, Lakshmi Ham Address: Address: [id number] [place] [address]
--- OUTSIDE RECORDS SUMMARY | 2024-02-05 16:05 | XMS_ITS | Encounter Summary ---
Author Organization [facility] Address [address] [place] [address] Care Team Providers Care Production Control Technologist Name Role Phone Carlos Joyner MD Unavailable [phone] Jadon Murray MD Unavailable [phone] Maru Villagomez RN Unavailable Unavailable Ang Slade MD Unavailable [phone] Carlos Joyner MD Unavailable [phone] Ang Slade MD Unavailable [phone] Lakshmi Wilhelm-C Unavailable [phone] Heladio Willoughby MD Primary Care Provider [phone] Heladio Willoughby MD Unavailable Alissa Perez PA-C Unavailable [phone] LaLakshmi morales-C Unavailable [phone] Encounter Details Date Type Department Care Team (Late st Contact Info) Description 04/08/2023 MyC Medical Advice [facility] [address] [place] [address] Rosita Velasco, RN Social History [...] in an abandoned building, in an overnight [place], or couch-surfing.) Yes 04/11/2023 Are you worried about losing [...] as of this encounter Plan of Treatment Not on file documented as of this encounter Visit Diagnoses Not on filedocumented in this encounter Care Teams Production Control Technologist Relationship Specialty Start [place] [address] [place] [address] PCP - General 03/05/23 Carlos Joyner MD [address] [place] [address] Urology 12/09/19 Jadon Murray MD [facility] [address] [id number] Referring Physician Pediatric Surgery 12/09/19 Maru Villagomez, OTILIO Registered Nurse 12/10/19 Ang Slade MD [address] [place] [address] Urology 04/24/20 Carlos Joyner MD [address] [place] [address] Assigned Surgical Provider 12/24/20 Ang Slade MD [address] [place] [address] Urology 12/18/22 Lakshmi Wilhelm PA-C [address] [place] [address] Physician Lecturer In Computer Science Urology 02/03/23 [place] [address] [place] [address] Assigned PCP 02/06/23 Alissa Perez PA-C [address] [place] [address] Physician Lecturer In Computer Science Surgery 09/04/23 Lakshmi Wilhelm PA-C [address] [place] [address] Physician Lecturer In Computer Science Urology 09/16/23 documented as of this encounter
--- OUTSIDE RECORDS SUMMARY | 2024-02-05 16:05 | XMS_ITS | Encounter Summary ---
Author Organization [employer] Address [address] [place] [address] Care Team Providers Care Banquet Houseperson Name Role Phone Carlos Joyner MD Unavailable [phone] Jadon Murray MD Unavailable [phone] Maru Villagomez RN Unavailable Unavailable Ang Slade MD Unavailable [phone] Carlos Joyner MD Unavailable [phone] Ang Slade MD Unavailable [phone] Lakshmi Wilhelm-C Unavailable [phone] Heladio Willoughby MD Primary Care Provider [phone] Heladio Willoughby MD Unavailable Alissa Perez-C Unavailable [phone] Lakshmi Wilhelm-C Unavailable [phone] Reason for Referral * Rehab Therapy Physical Therapy (Routine: Next available opening) - Referral NOT Required Specialty Diagnoses / Procedures Referred By Contac t Referred To Contact Diagnoses Paraplegia (H) [place] [address] [place] [address] Referral ID Status Reason Start Date Expiration Date V isits Requested Visits Authorized [id number] Referral NOT Required 11/12/2023 11/11/2024 1 1 Question Answer Course of Action: Evaluation and Treatment Specialty Services: Per Associated Diagnosis Scheduling Instructions: [facility] will call you to coordinate your care as prescribed by your provider. If you don't hear from a representative government relations within 2 business days, please call . Comments Please be aware that coverage of these services is subject to the terms and limitations of your health insurance plan. Call member services at your health plan with any benefit or coverage questions. [facility] 0 , [facility], [place] [address] ?? [address] [facility] will call you to coordinate your care as prescribed by your provider. If you don't hear from a representative government relations within 2 business days, please call . Encounter Details Date Type Department Care Team (Late st Contact Info) Description 11/11/2023 MyC Medical Advice [facility] [address] [place] [address] [place] [address] [place] [address] Paraplegia (H) (Primary Dx) Social History Tobacco Use Types [...] Answer Date Recorded Do you have housing? (Housin g is defined as stable permanent housing and does not include staying ouside in a car, in a tent, in an abandoned building, in an overnight jail, or couch-surfing.) Yes 04/16/2023 Are you worried [...] Telephone Encounter - Heladio Willoughby MD - 11/12/2023 6:26 AM CDT Brief chart review. This was discussed and referral for PT through [facility] [place]. Looks like it was sent to the [place] location. [facility] [address] [place] [phone] Comment: Please be aware that coverage of these services is subject to the terms and limitations [facility] plan. Call member services at your health plan with any benefit or coverage questions.[facility] will call you to coordinate your care as prescribed by your provider. If you don't hear from a representative government relations within 2 business days, please call . I searched for [place] location on the referral order and nothing is coming up so I just placed the referral in the comments. Can we fax this over to correct location and let patient/family/caregiver know? Thanks, Heladio Willoughby MD [facility] * Telephone Encounter - Lynette Bhakta RN - 11/11/2023 2:14 PM CDT Please see MCM. Last OV 09/01, PT referral ( referral not required ). No discussion of pool therapy. Routing to PCP to review and advise. Lynette Bhakta RN documented in this encounter Plan of Treatment Scheduled Referrals Name Type Priority Associated Diagnoses Orde r Schedule Physical Therapy Needle Leader Referral Referral Routine: Next available opening Paraplegia (H) Expected: 11/12/2023 (Approximate), Expires: 11/11/2024 documented as of this encounter Visit Diagnoses Diagnosis Paraplegia (H)- Primary Paraplegia documented in this encounter Care Teams Banquet Houseperson Relationship Specialty Start [place] [address] [place] [address] PCP - General 03/05/23 Carlos Joyner MD [address] [place] [address] Urology 12/09/19 Jadon Murray MD [facility] [address] [address] Referring Physician Pediatric Surgery 12/09/19 Maru Villagomez, OTILIO Registered Nurse 12/10/19 Ang Slade MD [address] [place] [address] [id number] Urology 04/24/20 Carlos Joyner MD [address] [place] [address] Assigned Surgical Provider 12/24/20 Ang Slade MD [address] [place] [address] Urology 12/18/22 Lakshmi Wilhelm PA-C [address] [place] [address] Physician Bet Taker Urology 02/03/23 [place] [address] [facility] [place] [address] Assigned PCP 02/06/23 Alissa Perez PA-C [address] [place] [address] 763155 Physician Bet Taker Surgery 09/04/23 Lakshmi Wilhelm PA-C [address] [place] [address] [phone] Physician Bet Taker Urology 09/16/23 documented as of this encounter
--- OUTSIDE RECORDS SUMMARY | 2024-02-05 16:05 | XMS_ITS | Encounter Summary ---
Author Organization [facility] Address [address] [place] [address] Care Team Providers Care Stretcher And Drier Name Role Phone Carlos Joyner MD Unavailable [phone] Jadon Murray MD Unavailable [phone] Maru Villagomez RN Unavailable Unavailable Ang Slade MD Unavailable [phone] Carlos Joyner MD Unavailable [phone] Ang Slade MD Unavailable [phone] Lakshmi Wilhelm-C Unavailable Heladio Willoughby MD Primary Care Provider [phone] Heladio Willoughby MD Unavailable Alissa Perez PA-C Unavailable [phone] LaLakshmi morales-C Unavailable [phone] Encounter Details Date Type Department Care Team (Late st Contact Info) Description 06/25/2023 [facility] [address] [place] [address] Carlos Joynre MD [address] [place] [address] Social History Tobacco Use Types Packs/Day [...] [place] [facility] [place], or couch-surfing.) Yes 04/16/2023 Are you worried [...] on filedocumented in this encounter Care Teams Stretcher And Drier Relationship Specialty Start [place] [address] [place] [address] PCP - General 03/05/23 Carlos Joyner MD [address] [place] [address] Urology 12/09/19 Jadon Murray MD [facility] [address] [address] Referring Physician Pediatric Surgery 12/09/19 Maru Villagomez, RN Registered Nurse 12/10/19 Ang Slade MD [address] [place] [address] [id number] Urology 04/24/20 Carlos Joyner MD [address] [place] [address] 160505 Assigned Surgical Provider 12/24/20 Ang Slade MD [address] [place] [address] 622775 Urology 12/18/22 Lakshmi Wilhelm PA-C [address] [place] [address] 656565 Physician Philosophy Lecturer Urology 02/03/23 [place] [address] [place] [address] Assigned PCP 02/06/23 Alissa Perez PA-C [address] [place] [address] [phone] Physician Philosophy Lecturer Surgery 09/04/23 Lakshmi Wilhelm PA-C [address] [place] [address] 563485 Physician Philosophy Lecturer Urology 09/16/23 documented as of this encounter
--- OUTSIDE RECORDS SUMMARY | 2024-02-05 16:05 | XMS_ITS | Encounter Summary ---
Author Organization [facility] Address [address] [place] [address]. [place] [address] Care Team Providers Care Baked And Graphite Inspector Name Role Phone Carlos Joyner MD Unavailable [phone] Jadon Murray MD Unavailable [phone] Maru Villagomez RN Unavailable Unavailable Ang Slade MD Unavailable [phone] Carlos Joyner MD Unavailable [phone] Ang Slade MD Unavailable [phone] Lakshmi Wilhelm-C Unavailable [phone] Heladio Willoughby MD Primary Care Provider [phone] Heladio Willoughby MD Unavailable Alissa Perez-C Unavailable [phone] LaLakshmi morales-C Unavailable [phone] Reason for Visit * Reason Comments Consult Rectal bleeding * Consultation (Routine: Next available opening) - Closed Specialty Diagnoses / Procedures Referred By Contabran t Referred To Contact Colon and Rectal Surgery Diagnoses [place] [address] [place] [address] Referral ID Status Reason Start Date Expiration Date Visits Re quested Visits Authorized [id number] Closed 09/03/2023 09/02/2024 1 1 Encounter Details Date Type Department Care Team (Late st Contact Info) Description 12/08/2023 9:30 AM CDT Office Visit [facility] [address] [place] [address] [place] [address] [place], [place] [id number] Alissa Perez PA-C [address] [place], [place] 47[address] Neurogenic bowel (Primary Dx); Paraplegia (H); Thoracic spina bifida, unspecified hydrocephalus presence (H) Social History Tobacco Use Types Packs/Day [...] Date Recorded Do you have housing? (Joey g is defined as stable permanent housing and does not include staying ouside in a car, in a tent, in an abandoned building, in an overnight fdc, or couch-surfing.) Yes 04/16/2023 Are you worried [...] Pulse 71 12/08/2023 9:35 AM CDT Temperature - - Respiratory Rate - - Oxygen Saturation 99% 12/08/2023 9:35 AM CDT Inhaled Oxygen Concentration - - Weight 65.8 kg (145 lb) 12/08/2023 9:35 AM CDT p t reported Height 144.8 cm (4' 9) 12/08/2023 9:35 AM CDT Body Mass Index 31.38 12/08/2023 9:35 AM CDT documented in this encounter Progress Notes * Alissa Perez PA-C - 12/08/2023 9:30 AM CDT Colon and Rectal Surgery Consult Clinic Note Referring [place]: [place] [address] [place] [address] Patient: Laina Escudero Date of : 2000 Date of Visit: 12/08/2023 Laina Escudero is a very pleasant 23 year old female with a history of spina bifida, neurogenicbowel and bladder here with concerns for perianal irritation. Laina is here today with Alison. About 3-4 months ago, Laina was having some perianal skin breakdown. At that time she was having issues with urinary incontinence which ended up being related toher intermittent cath schedule not being followed by her SHIRT IRONER SUPERVISOR. She also had a roadtrip to/from [place] and had a bout of diarrhea. Alison reports that there was some barrier cream being used at the time but the skin breakdown seems to have cleared up after a month or so. Around that time, she also had some rectal bleeding from a tear and Alison notes that Laina had a very large bowel movement one day. Laina usually uses the Peristeen system every evening and has a bowel movement following this. She occasionally takes Miralax. Alison suspects that the bowel regimen was not being followed around that time (since the cath schedule was also being missed) and this is why she had a large bowel movement. She has not had rectal bleeding since then. No prior colonoscopy. No family history of colorectal cancer. Physical Examination: There were no vitals taken for this visit. General: alert, oriented, in no acute distress, in a powered wheelchair and can self-transfer with minimal assistance Respiratory: non-labored breathing on RA Perianal External Examination: Perianal skin: Intact with no excoriation or lichenification. Some excess moisture on the perianal and perineal skin but no skin breakdown, no pressure ulcers. Lesions: No evidence of an external lesion, nodularity, or induration in the perianal region. Eversion of buttocks: There was not evidence of an anal fissure. Details: N/A. Skin tags or external hemorrhoids: Small anal skin tag right posterior Digital Rectal Examination: Was deferred. Anoscopy: Was deferred. Assessment/Plan: Laina Escudero is a 23 year old female with a history of spina bifida, neurogenic bowel and bladder here with concerns for perianal irritation which is currently resolved. We discussed that the skin breakdown was likely due to a combination of factors at that time including urinary incontinence, diarrhea, and the long road trip. It is currently resolved and the perianal skin looks very healthy. Recommend a barrier cream as needed, which it sounds like they are already doing. Briefly discussed that if her bowel regimen eventually fails then she may return to see one of oursurgeons to discuss a colostomy. It sounds like the Peristeen system is working very well for her ri ght now. Follow up as needed. Patient's questions were answered to her stated satisfaction and she is in agreement with this plan. Past Medical History: Diagnosis Date Acute cystitis Acute kidney failure (H24) Acute kidney failure, unspecified (H24) 02/10/2020 Capsulitis left shoulder Cerebral infarction (H) Decubitus ulcer Depressive disorder History of brain shunt Hydrocephalus (H) evp chief exploration officer shunt 01/30/2021 Kidney stone Meningomyelocele (H) Neurogenic bladder Neurogenic bowel Paraplegia (H) Rectal tear Spina bifida with hydrocephalus, lumbar region (H) Thrombus Urinary tract infection Past Surgical History: Procedure Laterality Date CYSTOSCOPY N/A 02/07/2020 Procedure: Cystoscopy; Surgeon: Carlos Joyner MD; Location: [facility] CYSTOSCOPY, RETROGRADES, INSERT STENT URETER(S), COMBINED Bilateral 05/10/2021 Procedure: CYSTOSCOPY, WITH RETROGRADE PYELOGRAM AND URETERAL BILATERAL STENT INSERTION; Surgeon: Carlos Joyner MD; Location: [facility] OR CYSTOSCOPY, RETROGRADES, INSERT STENT URETER(S), COMBINED Bilateral 08/09/2021 Procedure: CYSTOSCOPY, WITH RETROGRADE PYELOGRAM AND URETERAL BILATERAL STENT INSERTION; Surgeon: Carlos Joyner MD; Location: [facility] OR EXTRACTION(S) DENTAL N/A 02/06/2023 Procedure: Extraction of teeth 1, 16, 17, 32; Surgeon: Joshua Martell DDS; Location: [facility] OR IMPLANT SHUNT VENTRICULOPERITONEAL 04/29/2011 LASER HOLMIUM NEPHROLITHOTOMY VIA PERCUTANEOUS NEPHROSTOMY Bilateral 02/07/2020 Procedure: NEPHROLITHOTOMY, PERCUTANEOUS, USING HOLMIUM LASER Bilateral; Surgeon: Shila Joyner MD; Location[facility] LASER HOLMIUM NEPHROLITHOTOMY VIA PERCUTANEOUS NEPHROSTOMY Bilateral 11/12/2021 Procedure: BILATERAL NEPHROLITHOTOMY, PERCUTANEOUS, USING HOLMIUM LASER; Surgeon: Shila Joyner MD; Location: [facility] OR LASER HOLMIUM NEPHROLITHOTOMY VIA PERCUTANEOUS NEPHROSTOMY SECONDARY Bilateral 04/03/2023 Procedure: BILATERAL NEPHROLITHOTOMY VIA PERCUTANEOUS NEPHROSTOMY SECONDARY; Surgeon: Carlos Joyner MD; Location: [facility] PERCUTANEOUS NEPHROLITHOTOMY Bilateral 03/31/2023 Procedure: NEPHROLITHOTOMY, PERCUTANEOUS; Surgeon: Carlos Joyenr MD; Location: [facility] OR Current Outpatient Medications Medication Sig Dispense Refill [...] 1 each topically daily 10 each 0 Allergies Allergen Reactions Ibuprofen Nephrotoxicity Due to hx of horseshoe kidney and recurrent nephrolithiasis Latex PN: Converted from LW Latex Sensitivity Flag Nsaids Nephrotoxicity Due to hx of horseshoe kidney and nephrolithiasis Vancomycin Other reaction(s): redmans Other reaction(s): redmans Family History Problem Relation Age of Onset Mental Illness Mother Bipolar disorder Diabetes Father Morbid Obesity Father Social History Tobacco Use Smoking status: Never Smokeless tobacco: Never Substance Use Topics Alcohol use: Not Currently Marital status: single. Alissa Perez PA-C Colon and Rectal Surgery [facility] No LOS data to display Time spent on date of encounter doing chart review, history and exam, documentation, and further activities in this note. documented in this encounter Nursing Notes * Joyce Jacob - 12/08/2023 9:30 AM CDT Chief Complaint Patient presents with Consult Rectal bleeding Vitals: 12/08/23 0935 BP: 127/83 BP Location: Left arm Patient Position: Sitting Cuff Size: Adult Regular Pulse: 71 SpO2: 99% Weight: 145 lb Height: 4' 9 Body mass index is 31.38 kg/m??. Joyce Jacob, EMT documented in this encounter Plan of Treatment Not on file documented as of this encounter Visit Diagnoses Diagnosis Neurogenic bowel- Primary Paraplegia (H) Paraplegia Thoracic spina bifida, unspecified hydrocephalus presence (H) documented in this encounter Care Teams Baked And Graphite Inspector Relationship Specialty [place] [address] [place] [address] PCP - General 03/05/23 Carlos Joyner MD [address] [place] [address] Urology 12/09/19 Jadon Murray MD [facility] [address] [facility] [address] [place] [address] Referring Physician Pediatric Surgery 12/09/19 Maru Villagomez, OTILIO Registered Nurse 12/10/19 Ang Slade MD [address] [place] [address] 654285 Urology 04/24/20 Carlos Joyner MD [address] [place] [address] [phone] Assigned Surgical Provider 12/24/20 Ang Slade MD [address] [place] [address] Urology 12/18/22 Lakshmi Wilhelm PA-C [address] [place] [address] Interpreter Urology 02/03/23 [place] [address] [place] [address] Assigned PCP 02/06/23 Alissa Perez PA-C [address] [place] [address] Interpreter Surgery 09/04/23 Lakshmi Wilhelm PA-C [address] [place] [address] Interpreter Urology 09/16/23 documented as of this encounter
--- OUTSIDE RECORDS SUMMARY | 2024-02-05 16:05 | XMS_ITS | Encounter Summary ---
Author Organization [facility] Address [address] [place] [address] Care Team Providers Care Archeologist Classical Name Role Phone Carlos Joyner MD Unavailable [phone] Jadon Murray MD Unavailable [phone] Maru Villagomez RN Unavailable Unavailable Ang Slade MD Unavailable [phone] Carlos Joyner MD Unavailable [phone] Ang Slade MD Unavailable [phone] Lakshmi Wilhelm-C Unavailable [phone] Heladio Willoughby MD Primary Care Provider [phone] Heladio Willoughby MD Unavailable Alissa Perez PA-C Unavailable [phone] LaLakshmi morales-C Unavailable [phone] Encounter Details Date Type Department Care Team (Late st Contact Info) Description 09/08/2023 MyC Medical Advice [address] [address] Bhavna Ferris Social History Tobacco [...] in an abandoned building, in an overnight prison, or couch-surfing.) Yes 04/16/2023 Are you worried [...] on filedocumented in this encounter Care Teams Archeologist Classical Relationship Specialty Start [place] [address] [place] [address] PCP - General 03/05/23 Carlos Joyner MD [address] [place] [address] Urology 12/09/19 Jadon Murray MD [facility] [address] [phone] Referring Physician Pediatric Surgery 12/09/19 Maru Villagomez, OTILIO Registered Nurse 12/10/19 Ang Slade MD [address] [place] [address] 385565 Urology 04/24/20 Carlos Joyner MD [address] [place] [address] Assigned Surgical Provider 12/24/20 Ang Slade MD [address] [place] [address]117 Urology 12/18/22 Lakshmi Wilhelm PA-C [address] [place] [address] Physician Planner Internship Urology 02/03/23 [place] [address] [place] [address] Assigned PCP 02/06/23 Alissa Perez PA-C [address] [place] [address] Physician Planner Internship Surgery 09/04/23 Lakshmi Wilhelm PA-C [address] [place] [address] Physician Planner Internship Urology 09/16/23 documented as of this encounter
--- OUTSIDE RECORDS SUMMARY | 2024-02-05 16:05 | XMS_ITS | Encounter Summary ---
Author Organization [facility] Address [address] [place] [address] Care Team Providers Care Financial Advisor Name Role Phone Carlos Joyner MD Unavailable [phone] Jadon Murray MD Unavailable [phone] Maru Villagomez RN Unavailable Unavailable Ang Slade MD Unavailable [phone] Carlos Joyner MD Unavailable [phone] Ang Slade MD Unavailable [phone] Lakshmi Wilhelm-C Unavailable [phone] Heladio Willoughby MD Primary Care Provider [phone] Heladio Willoughby MD Unavailable Alissa Perez PA-C Unavailable [phone] Lakshmi Wilhelm-C Unavailable [phone] Encounter Details Date Type Department Care Team (Latest Contact Info) Description 12/08/2023 Travel Social History Tobacco Use Types Packs/Day [...] in an abandoned building, in an overnight usp, or couch-surfing.) Yes 04/16/2023 Are you worried [...] on filedocumented in this encounter Care Teams Financial Advisor Relationship Specialty Start [place] [address] [place] [address] PCP - General 03/05/23 Carlos Joyner MD [address] [place], [place] 562845 Urology 12/09/19 Jadon Murray MD [facility] 2530 [facility] [address] [place] [address] Referring Physician Pediatric Surgery 12/09/19 Maru Villagomez, RN Registered Nurse 12/10/19 Ang Slade MD [address] [place] [address] [address] [place], [place] 072845 Urology 04/24/20 Carlos Joyner MD [address] [place] [address] 930525 Assigned Surgical Provider 12/24/20 Ang Slade MD [address] [place] [address] [id number] Urology 12/18/22 Lakshmi Wilhelm PA-C [address] [place] [address] 294205 Physician Linter Tender Urology 02/03/23 [place] [address] [place] [address] Assigned PCP 02/06/23 Alissa Perez PA-C [address] [place] [address] 294545 Physician Linter Tender Surgery 09/04/23 Lakshmi Wilhelm PA-C [address] [place] [address] 129805 Physician Linter Tender Urology 09/16/23 documented as of this encounter
--- OUTSIDE RECORDS SUMMARY | 2024-02-05 16:05 | XMS_ITS | Encounter Summary ---
Author Organization [facility] Address [address] [place] [address] Care Team Providers Care Electrical Controls Assembler Name Role Phone Carlos Joyner MD Unavailable [phone] Jadon Murray MD Unavailable [phone] Maru Villagomez RN Unavailable Unavailable Ang Slade MD Unavailable [phone] Carlos Joyner MD Unavailable [phone] Ang Slade MD Unavailable [phone] Lakshmi Wilhelm-C Unavailable [phone] Heladio Willoughby MD Primary Care Provider [phone] Heladio Willoughby MD Unavailable Alissa Perez-C Unavailable [phone] LaLakshmi morales-C Unavailable Reason for Visit * Reason Onset Date Comments Prior Auth - Medication 08/22/2023 Gentamic in 480mg/l bladder irrigation (compounded)-[place] DENIED-APPEAL cancelled. Patent has other insurance. Encounter Details Date Type Department Care Team (Late st Contact Info) Description 08/22/2023 Telephone [facility] [address] [place] [address] Carlos Joyner MD [address] [place] [address] Prior Auth - Medication (Gentamicin 480mg/l bladder irrigation (compounded)-[place] DENIED-APPEAL cancelled. Patent has other insurance.) Social History Tobacco Use Types Packs/Day Years [...] in an abandoned building, in an overnight custodial, or couch-surfing.) Yes 04/16/2023 Are you worried [...] * Telephone Encounter - Jodi Whittington - 11/10/2023 12:51 PM CDT Central Prior Authorization Team - Per insurance patient has another insurance plan, patient will need to obtain through other insurance. PA approved through other insurance 09/08/2023. * Telephone Encounter - Jodi Whittington - 10/10/2023 10:24 AM CDT Images from the original note were not included. Central Prior Authorization Team - Medication Appeal Initiation Medication: COMPOUND 347 [place] Appeal Start Date: 10/10/2023 Insurance Company: [email or web address] Insurance Insurance Comments: [place] sent via fax * Telephone Encounter - Rosita Velasco RN - 09/29/2023 2:20 PM CDT Mary- I reached out to the pharmacist at the [facility] to provide additional documentation. This was the reply I received from Ольга Villagomez PharmD.-[facility] Staff Pharmacist: As it is a compounded medication, it would probably not be listed in either of those references. Weare following MCFP ([place] Pharmacopeia) 797 guidelines for sterile [...] to have this approved? Rosita Conner RN Cement Mixer- Urology [phone] * Telephone Encounter - Jodi Whittington - 09/17/2023 10:29 AM CDT Images from the original note were not included. Central Prior Authorization Team - PRIOR AUTHORIZATION DENIED Medication: COMPOUND 347 [place] Insurance Company: [employer] ([employer]) - Denial Date: 09/04/2023 Denial Reason(s): Appeal [...] Medication: COMPOUND 347 [place] Insurance Company: [employer] ([employer]) - Pharmacy Filling the Rx: [facility] - [place], [place] - [address] [place] [address] Filling Pharmacy Filling Pharmacy Fax: Start Date: 09/03/2023 * Telephone Encounter - Patito Cristobal - 08/22/2023 12:53 PM CDTSummary: Prior auth- Gentamicin 480mg/l bladder irrigation (compounded) A prior authorization is needed for the following compounded medications prescribed. Please complete a prior authorization with the information included below. Medication:Gentamicin 480mg/l bladder irrigation (compounded) Ingredients NDCs Quantities Gentamicin sulfate 40mg/ml soln [address]-80 10.8 ml Sodium chloride 0.9% soln [address]-44 889.2 ml Bd syringe 50ml [facility] [address]-89 30 each RX #: [id number] Reason for Rejection:product/service not covered -plan/benefit exclusion Primary Pharmacy Insurance plan:[employer] [place] BIN #:[id number] ID #:[id number] PCN #:[facility] Phone #:[phone] Secondary insurance: [employer] part D Bin: [id number] Id: [id number] Pcn: [id number] Pharmacy Please advise the [facility] @ [phone] when the prior authorization is approved or denied. Thank you for your time. Dayan Cristobal [facility], GHISLAINE Brickmason Contractor [facility] [address] [place] [address] [email or web address] documented in this encounter Plan of Treatment Not on file documented as of this encounter Visit Diagnoses Not on filedocumented in this encounter Care Teams Electrical Controls Assembler Relationship Specialty Start [place] [address] [place] [address] PCP - General 03/05/23 Carlos Joyner MD 9 [place], [place] 794555 Urology 12/09/19 Jadon Murray MD [facility] 25[address] [facility] [address] [place], [place] [id number] Referring Physician Pediatric Surgery 12/09/19 Maru Villagomez, OTILIO Registered Nurse 12/10/19 Ang Slade MD [address] [address] Urology 04/24/20 Carlos Joyner MD [address] [place] [address] Assigned Surgical Provider 12/24/20 Ang Slade MD [address] [place] [address] Urology 12/18/22 Lakshmi Wilhelm PA-C [address] [place] [address] Physician Journeyman Glazier Urology 02/03/23 [place] [address] [place] [address] Assigned PCP 02/06/23 Alissa Perez PA-C [address] [place] [address] 310615 Physician Journeyman Glazier Surgery 09/04/23 Lakshmi Wilhelm PA-C [address] [place] [address] 058245 Physician Journeyman Glazier Urology 09/16/23 documented as of this encounter
--- OUTSIDE RECORDS SUMMARY | 2024-02-05 16:05 | XMS_ITS | Encounter Summary ---
Author Organization [facility] Address [address] [place] [address] Care Team Providers Care Statistical Modeler Name Role Phone Carlos Joyner MD Unavailable [phone] Jadon Murray MD Unavailable [phone] Maru Villagomez RN Unavailable Unavailable Ang Slade MD Unavailable [phone] Carlos Joyner MD Unavailable [phone] Ang Slade MD Unavailable [phone] Lakshmi Wilhelm PA-C Unavailable [phone] Heladio Willoughby MD Primary Care Provider [phone] Heladio Willoughby MD Unavailable Alissa Perez PA-C Unavailable [phone] Lakshmi Wilhelm PA-C Unavailable [phone] Reason for Visit * Reason Onset Date Comments Previsit 11/26/2023 Encounter Details Date Type Department Care Team (Late st Contact Info) Description 11/26/2023 PRE VISIT [facility] and [facility]al Surgery Clinic [address] [address] Alissa Perez PA-C [address] [place] [address] Previsit Social History Tobacco Use Types Packs/Day Years [...] in an abandoned building, in an overnight long-term, or couch-surfing.) Yes 04/16/2023 Are you worried [...] encounter Miscellaneous Notes * Telephone Encounter - Neha Ladd - 09/04/2023 3:35 PM CDT Diagnosis, Referred by & from: Rectal Bleeding Appt date: 11/26/2023 NOTES STATUS DETAILS OFFICE NOTE from referring provider [facility]: 09/02/23, 04/16/23 - PCC OV with Dr. Willoughby OFFICE NOTE from other specialist [facility]: 09/23/23, 06/24/23 - URO OV with Dr. Manning [facility] - M09/05/23 - URO OV with FREDDY Jimenez DISCHARGE SUMMARY from hospital N/A DISCHARGE REPORT from the ER N/A OPERATIVE REPORT N/A MEDICATION LIST Internal LABS N/A DIAGNOSTIC PROCEDURES N/A IMAGING (DISC & REPORT) CT [facility]: 04/01/23 - CT Abd/Pelvis 12/11/22 - CT Abd/Pelvis 04/01/22 - CT Abd/pelvis * Additional in Epic/PACs XRAY [facility]: (VA[facility]AV) 09/16/23 - XR Abdomen ULTRASOUND (ENDOANAL/ENDORECTAL) [facility]: ([facility]) 09/16/23 - US Renal 01/01/22 - US Renal documented in this encounter Plan of Treatment Not on file documented as of this encounter Visit Diagnoses Not on filedocumented in this encounter Care Teams Statistical Modeler Relationship Specialty Start [place] [address] [place] [address] PCP - General 03/05/23 Carlos Joyner MD [address] [place] [address] 973735 Urology 12/09/19 Jadon Murary MD [facility] 25[address] [facility] [address] [place] [address] Referring Physician Pediatric Surgery 12/09/19 Maru Villagomez, OTILIO Registered Nurse 12/10/19 Ang Slade MD [address] [place] [address] 803295 Urology 04/24/20 Carlos Joyner MD [address] [place] [address] Assigned Surgical Provider 12/24/20 Ang Slade MD [address] [place] [address] [phone] Urology 12/18/22 Lakshmi Wilhelm PA-C [address] [place] [address] 540945 Physician Fraud Analyst Urology 02/03/23 [place] [address] [place] [address] Assigned PCP 02/06/23 Alissa Perez PA-C [address] [place] [address] 066195 Physician Fraud Analyst Surgery 09/04/23 Lakshmi Wilhelm PA-C [address] [place] [address] 778405 Physician Fraud Analyst Urology 09/16/23 documented as of this encounter
--- OUTSIDE RECORDS SUMMARY | 2024-02-05 16:05 | XMS_ITS | Encounter Summary ---
Author Organization [facility] Address [address] [place] [address] Care Team Providers Care Manager Department Name Role Phone Carlos Joyner MD Unavailable [phone] Jadon Murray MD Unavailable [phone] Maru Villagomez RN Unavailable Unavailable Ang Slade MD Unavailable [phone] Carlos Joyner MD Unavailable +[phone] Ang Slade MD Unavailable +[phone] Lakshmi Wilhelm-C Unavailable +[phone] Heladio Willoughby MD Primary Care Provider [phone] Heladio Willoughby MD Unavailable Alissa Perez PA-C Unavailable [phone] LaLakshmi morales-C Unavailable [phone] Encounter Details Date Type Department Care Team (Late st Contact Info) Description 08/18/2023 MyC Medical Advice [facility] [address] [place] [address] Analisa Conner Social History Tobacco [...] filedocumented in this encounter Care Teams Manager Department Relationship Specialty [place] [address] [place] [address] PCP - General 03/05/23 Carlos Joyner MD [address] [place] [address] 466225 Urology 12/09/19 Jadon Murray MD [facility] [address] [address] Referring Physician Pediatric Surgery 12/09/19 Maru Villagomez, OTILIO Registered Nurse 12/10/19 Ang Slade MD [address] [address] Urology 04/24/20 Carlos Joyner MD [address] [place] [address] 23904 Assigned Surgical Provider 12/24/20 Ang Slade MD [address] [place] [address] 99441 Urology 12/18/22 Lakshmi Wilhelm PA-C [address] [place] [address] 024665 Physician Occupational Health Coordinator Urology 02/03/23 [place] [address] [place] [address] Assigned PCP 02/06/23 Alissa Perez PA-C [address] [place] [address] 881575 Physician Occupational Health Coordinator Surgery 09/04/23 Lakshmi Wilhelm PA-C [address] [place] [address] 07505 Physician Occupational Health Coordinator Urology 09/16/23 documented as of this encounter
--- OUTSIDE RECORDS SUMMARY | 2024-02-05 16:05 | XMS_ITS | Encounter Summary ---
Author Organization [facility] Address [address] [place] [address]. [place] [address] Care Team Providers Care Medicine Man Name Role Phone Carlos Joyner MD Unavailable [phone] Jadon Murray MD Unavailable [phone] Maru Villagomez RN Unavailable Unavailable Ang Slade MD Unavailable +[phone] Carlos Joyner MD Unavailable + [phone] Ang Slade MD Unavailable +[phone] Lakshmi Wilhelm-C Unavailable +[phone] Heladio Willoughby MD Primary Care Provider [phone] Heladio Willoughby MD Unavailable Alissa Perez PA-C Unavailable [phone] LaLakshmi morales-C Unavailable +[phone] Reason for Visit * Reason Onset Date Comments Orders 12/26/2023 Encounter Details Date Type Department Care Team (Late st Contact Info) Description 12/26/2023 Telephone [facility] [address] [place] [address] [place] [address] [place] [address] Orders Social History Tobacco Use [...] in an abandoned building, in an overnight fci, or couch-surfing.) Yes 04/16/2023 Are you worried [...] Telephone Encounter - Tanisha Kaur RN - 12/26/2023 9:28 AM CDT [facility] home medical calling regarding an order for incontinence supplies from August from Dr. Leija. Asking about a diagnosis code for urinary incontinence. Provided diagnosis code per chart documentation. Tanisha Kaur RN on 12/26/2023 at 9:31 AM documented in this encounter Plan of Treatment Not on file documented as of this encounter Visit Diagnoses Diagnosis Continuous leakage of urine- Primary Continuous leakage documented in this encounter Care Teams Medicine Man Relationship Specialty Start [place] [address] [place] [address] PCP - General 03/05/23 Carlos Joyner MD [address] [place] [address] 416255 Urology 12/09/19 Jadon Murray MD [facility] [address] [address] Referring Physician Pediatric Surgery 12/09/19 Maru Villagomez, RN Registered Nurse 12/10/19 Ang Slade MD [address] [place] [address] Urology 04/24/20 Carlos Joyner MD [address] [place] [address] 12609 Assigned Surgical Provider 12/24/20 Ang Slade MD [address] [place] [address] 63328 Urology 12/18/22 Lakshmi Wilhelm PA-C [address] [place] [address] 03878 Physician Balancer Scale Urology 02/03/23 [place] [address] [address] [place] [place], [place] 3307768 Assigned PCP 02/06/23 Alissa Perez PA-C [address] [place] [address] 641375 Physician Balancer Scale Surgery 09/04/23 Lakshmi Wilhelm PA-C [address] [place] [address] 91135 Physician Balancer Scale Urology 09/16/23 documented as of this encounter
--- OUTSIDE RECORDS SUMMARY | 2024-02-05 16:05 | XMS_ITS | Encounter Summary ---
Author Organization [facility] Address [address] [place] [address] Care Team Providers Care Sports Team Marketing Intern Name Role Phone Carlos Joyner MD Unavailable [phone] Jadon Murray MD Unavailable [phone] Maru Villagomez RN Unavailable Unavailable Ang Slade MD Unavailable +[phone] Carlos Joyner MD Unavailable +[phone] Ang Slade MD Unavailable +[phone] Lakshmi Wilhelm-C Unavailable +[phone] Heladio Willoughby MD Primary Care Provider [phone] Heladio Willoughby MD Unavailable Alissa Perez PA-C Unavailable [phone] Lakshmi Wilhelm-C Unavailable [phone] Encounter Details Date Type Department Care Team (Latest Contact Info) Description 12/05/2023 Travel Social History Tobacco Use Types Packs/Day [...] in an abandoned building, in an overnight correction, or couch-surfing.) Yes 04/16/2023 Are you worried [...] on filedocumented in this encounter Care Teams Sports Team Marketing Intern Relationship Specialty [place] [address] [place] [address] PCP - General 03/05/23 Carlos Joyner MD 909 [place], [place] 267945 Urology 12/09/19 Jadon Murray MD [facility] 2530 [facility] 550 [place] [address] Referring Physician Pediatric Surgery 12/09/19 Maru Villagomez, RN Registered Nurse 12/10/19 Ang Slade MD [address] [place] [address] 394 [place], [place] 797465 Urology 04/24/20 Carlos Joyner MD [address] [place] [address] 412535 Assigned Surgical Provider 12/24/20 Ang Slade MD [address] [place] [address] [id number] Urology 12/18/22 Lakshmi Wilhelm PA-C [address] [place] [address] 587335 Physician Morning News Producer Urology 02/03/23 [place] [address] [place] [address] Assigned PCP 02/06/23 Alissa Perez PA-C [address] [place] [address] 287485 Physician Morning News Producer Surgery 09/04/23 Lakshmi Wilhelm PA-C [address] [place] [address] 759665 Physician Morning News Producer Urology 09/16/23 documented as of this encounter
--- OUTSIDE RECORDS SUMMARY | 2024-02-05 16:05 | XMS_ITS | Encounter Summary ---
Author Organization [facility] Address [address] [place] [address] Care Team Providers Care Cycle Analyst Name Role Phone Carlos Joyner MD Unavailable [phone] Jadon Murray MD Unavailable [phone] Maru Villagomez RN Unavailable Unavailable Ang Slade MD Unavailable +[phone] Carlos Joyner MD Unavailable [phone] Ang Slade MD Unavailable +[phone] Lakshmi WilhelmC Unavailable Heladio Willoughby MD Primary Care Provider [phone] Heladio Willoughby MD Unavailable Alissa Perez-C Unavailable [phone] Lakshmi WilhelmC Unavailable Reason for Visit * Reason Comments Medication Refill oxyBUTYnin Chloride Oral Tablet 5 MG Encounter Details Date Type Department Care Team (Late st Contact Info) Description 12/19/2023 Refill [facility] [address] [place] [address] Carlos Joyner MD [address] [place] [address] Medication Refill ( oxyBUTYnin Chloride Oral Tablet 5 MG) Social History Tobacco Use Types Packs/Day Years [...] in an abandoned building, in an overnight senior living, or couch-surfing.) Yes 04/16/2023 Are you worried [...] Miscellaneous Notes * Telephone Encounter - Tanisha Macedo RN - 12/24/2023 7:44 AM CDT oxyBUTYnin Chloride Oral Tablet 5 MG Last Written Prescription Date: 07-18-23 Last Fill Quantity: 180, # refills: 0 Last Office Visit : 09-23-23 Future Office visit: none Routing refill request to provider for review/approval because: Failed protocol:diagnosis documented in this encounter Plan of Treatment Not on file documented as of this encounter Visit Diagnoses Diagnosis Bladder spasms Other specified disorders of bladder documented in this encounter Care Teams Cycle Analyst Relationship Specialty [place] [address] [place] [address] PCP - General 03/05/23 Carlos Joyner MD [address] [place] [address] Urology 12/09/19 Jadon Murray MD [facility] 2530 [facility] [address] [place] [address] Referring Physician Pediatric Surgery 12/09/19 Maru Villagomez, RN Registered Nurse 12/10/19 Ang Slade MD [address] [place] [address] Urology 04/24/20 Carlos Joyner MD [address] [place] [address] 987645 Assigned Surgical Provider 12/24/20 Agn Slade MD [address] [place] [address] Urology 12/18/22 Lakshmi Wilhelm PA-C [address] [place] [address] 9[address]42 Physician Director Of In Service Education Urology 02/03/23 [place] [address] [place] [address] Assigned PCP 02/06/23 Alissa Perez PA-C [address] [place] [address] Physician Director Of In Service Education Surgery 09/04/23 Lakshmi Wilhelm PA-C [address] [place] [address] Physician Director Of In Service Education Urology 09/16/23 documented as of this encounter
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
--- OUTSIDE RECORDS SUMMARY | 2024-02-05 16:05 | XMS_ITS | Encounter Summary ---
Author Organization [facility] Address [address] [place] [address] Care Team Providers Care Brusher Operator Name Role Phone Carlos Joyner MD Unavailable [phone] Jadon Murray MD Unavailable [phone] Maru Villagomez RN Unavailable Unavailable Ang Slade MD Unavailable [phone] Carlos Joyner MD Unavailable [phone] Ang Slade MD Unavailable [phone] Lakshmi Wilhelm-C Unavailable [phone] Heladio Willoughby MD Primary Care Provider [phone] Heladio Willoughby MD Unavailable Alissa Perez PA-C Unavailable [phone] LaLakshmi morales-C Unavailable [phone] Encounter Details Date Type Department Care Team (Late st Contact Info) Description 05/05/2023 MyC Medical Advice [facility] [address] [place] [address] Rosita Velasco, RN Social History [...] on filedocumented in this encounter Care Teams Brusher Operator Relationship Specialty [place] [address] [place] [address] PCP - General 03/05/23 Carlos Joyner MD 909 [place] [address] Urology 12/09/19 Jadon Murray MD [facility] [address] [phone] Referring Physician Pediatric Surgery 12/09/19 Maru Villagomez, OTILIO Registered Nurse 12/10/19 Ang Slade MD [address] [place] [address] 470985 Urology 04/24/20 Carlos Joyner MD [address] [place] [address] 00466 Assigned Surgical Provider 12/24/20 Ang Slade MD [address] [place] [address] Urology 12/18/22 Lakshmi Wilhelm PA-C [address] [place] [address] 85699 Physician Deblocker Urology 02/03/23 [place] [address] [place] [address] Assigned PCP 02/06/23 Alissa Perez PA-C [address] [place] [address] 16855 Physician Deblocker Surgery 09/04/23 Lakshmi Wilhelm PA-C [address] [place] [address] 66763 Physician Deblocker Urology 09/16/23 documented as of this encounter
--- OUTSIDE RECORDS SUMMARY | 2024-02-05 16:05 | XMS_ITS | Encounter Summary ---
Author Organization [facility] Address [facility] [place] [address] Care Team Providers Care Flight Coordinator Name Role Phone Carlos Joyner MD Unavailable [phone] Jadon Murray MD Unavailable [phone] Maru Villagomez RN Unavailable Unavailable Ang Slade MD Unavailable [phone] Carlos Joyner MD Unavailable +[phone] Ang Slade MD Unavailable +[phone] Lakshmi Wilhelm-C Unavailable +[phone] Heladio Willoughby MD Primary Care Provider [phone] Heladio Willoughby MD Unavailable Alissa Perez PA-C Unavailable [phone] LaLakshmi morales-C Unavailable [phone] Encounter Details Date Type Department Care Team (Late st Contact Info) Description 10/16/[address] [facility] 2450 [place] [address] Scan, Non-Provider Social History Tobacco [...] in an abandoned building, in an overnight care home, or couch-surfing.) Yes 04/16/2023 Are you worried [...] on filedocumented in this encounter Care Teams Flight Coordinator Relationship Specialty [place] [address] [place] [address] PCP - General 03/05/23 Carlos Joyner MD 9 [place] [address] Urology 12/09/19 Jadon Murray MD [facility] [address] [address] Referring Physician Pediatric Surgery 12/09/19 Maru Villagomez, OTILIO Registered Nurse 12/10/19 Ang Slade MD [address] [place] [address] 932885 Urology 04/24/20 Carlos Joyner MD [address] [place] [address] 6[address]05 Assigned Surgical Provider 12/24/20 Ang Slade MD [address] [place] [address] Urology 12/18/22 Lakshmi Wilhelm PA-C [address] [place] [address] 807025 Physician Set Up Machinist Urology 02/03/23 [place] [address] [place] [address] Assigned PCP 02/06/23 Alissa Perez PA-C [address] [place] [address] 80411 Physician Set Up Machinist Surgery 09/04/23 Lakshmi Wilhelm PA-C [address] [place] [address] Physician Set Up Machinist Urology 09/16/23 documented as of this encounter
--- OUTSIDE RECORDS SUMMARY | 2024-02-05 16:05 | XMS_ITS | Encounter Summary ---
Author Organization [facility] Address [address] [place] [address] Care Team Providers Care Test Tech Name Role Phone Carlos Joyner MD Unavailable [phone] Jadon Murray MD Unavailable [phone] Maru Villagomez RN Unavailable Unavailable Ang Slade MD Unavailable +[phone] Carlos Joyner MD Unavailable +[phone] Ang Slade MD Unavailable [phone] Lakshmi Wilhelm-C Unavailable +[phone] Heladio Willoughby MD Primary Care Provider [phone] Heladio Willoughby MD Unavailable Alissa Perez PA-C Unavailable [phone] LaLakshmi morales-C Unavailable [phone] Encounter Details Date Type Department Care Team (Late st Contact Info) Description 07/01/2023 MyC Medical Advice [facility] [address] [place] [address] Joao Arceo MA Social History [...] on filedocumented in this encounter Care Teams Test Tech Relationship Specialty [place] [address] [place] [address] PCP - General 03/05/23 Carlos Joyner MD 909 [place] [address] Urology 12/09/19 Jadon Murray MD [facility] [address] [phone] Referring Physician Pediatric Surgery 12/09/19 Maru Villagomez, OTILIO Registered Nurse 12/10/19 Ang Slade MD [address] [place] [address] 665265 Urology 04/24/20 Carlos Joyner MD [address] [place] [address] 24833 Assigned Surgical Provider 12/24/20 Ang Slade MD [address] [place] [address] 7[address] Urology 12/18/22 Lakshmi Wilhelm PA-C [address] [place] [address] 527975 Physician Environmental Emergencies Planner Urology 02/03/23 [place] [address] [place] [address] Assigned PCP 02/06/23 Alissa Perez PA-C [address] [place] [address] Physician Environmental Emergencies Planner Surgery 09/04/23 Lakshmi Wilhelm PA-C [address] [place] [address] Physician Environmental Emergencies Planner Urology 09/16/23 documented as of this encounter
--- OUTSIDE RECORDS SUMMARY | 2024-02-05 16:05 | XMS_ITS | Encounter Summary ---
Author Organization [facility] Address [address] [place] [address] Care Team Providers Care Lead Investigator Name Role Phone Carlos Joyner MD Unavailable [phone] Jadon Murray MD Unavailable [phone] Maru Villagomez RN Unavailable Unavailable Ang Slade MD Unavailable +[phone] Carlos Joyner MD Unavailable +[phone] Ang Slade MD Unavailable [phone] Lakshmi Wilhelm-C Unavailable +[phone] Heladio Willoughby MD Primary Care Provider [phone] Heladio Willoughby MD Unavailable Alissa Perez PA-C Unavailable [phone] LaLakshmi morales-C Unavailable [phone] Encounter Details Date Type Department Care Team (Late st Contact Info) Description 09/18/2023 [facility] Medical Advice [facility] [address] [place] [address] Carlos Joyner MD [address] [place] [address] Social History Tobacco Use Types Packs/Day [...] on filedocumented in this encounter Care Teams Lead Investigator Relationship Specialty [place] [address] [place] [address] PCP - General 03/05/23 Carlos Joyner MD 909 [place] [address] Urology 12/09/19 Jadon Murray MD [facility] [address] [address] Referring Physician Pediatric Surgery 12/09/19 Maru Villagomez, RN Registered Nurse 12/10/19 Ang Slade MD [address] [place] [address] 509685 Urology 04/24/20 Carlos Joyner MD [address] [place] [address] 800345 Assigned Surgical Provider 12/24/20 Ang Slade MD [address] [place] [address] 441445 Urology 12/18/22 Lakshmi Wilhelm PA-C [address] [place] [address] 244045 Physician Farm Equipment Maintenance Supervisor Urology 02/03/23 [place] [address] [place] [address] Assigned PCP 02/06/23 Alissa Perez PA-C [address] [place] [address] 741585 Physician Farm Equipment Maintenance Supervisor Surgery 09/04/23 Lakshmi Wilhelm PA-C [address] [place] [address] 727905 Physician Farm Equipment Maintenance Supervisor Urology 09/16/23 documented as of this encounter
--- OUTSIDE RECORDS SUMMARY | 2024-02-05 16:05 | XMS_ITS | Referral Summary ---
Author Organization [place] Address [address] [place] [address] Care Team Providers Care Community Support Professional Name Role Phone Carlos Joyner MD Unavailable [phone] Jadon Murray MD Unavailable [phone] Maru Villagomez RN Unavailable Unavailable Ang Slade MD Unavailable [phone] Carlos Joyner MD Unavailable [phone] Ang Slade MD Unavailable [phone] Lakshmi Wilhelm-C Unavailable Heladio Willoughby MD Primary Care Provider [phone] Heladio Willoughby MD Unavailable Alissa Perez PA-C Unavailable [phone] Lakshmi Wilhelm-C Unavailable [phone] Encounters Date Type Department Care Team Description 12/29/2023 [facility] [address] [place] [address] Heladio Willoughby MD 12/29/2023 [facility] [address] [place] [address] Heladio Willoughby MD Forms ([facility] - [facility]continence [facility]) 12/26/2023 [facility] [address] [place] [address] Heladio Willoughby MD Orders 12/19/2023 Refill [facility] [address] [address] Carlos Joyner MD Medication Refill ( oxyBUTYnin Chloride Oral Tablet 5 MG) 12/08/2023 Travel 12/08/2023 9:30 AM CDT Office Visit [facility] [address] [address] Heladio Willoughby MD Yan, Jasmine, PA-C Neurogenic bowel (Primary Dx); Paraplegia (H); Thoracic spina bifida, unspecified hydrocephalus presence (H) 12/05/2023 Travel 11/26/2023 PRE VISIT [facility] [address] [address] Alissa Perez PA-C Previsit 11/11/2023 [facility] Medical Advice [place] [phone] Heladio Willoughby MD Paraplegia (H) (Primary Dx) from Last 3 Months Allergies Active Allergy [...] ALGINATE 2X2) PADSIndications:Pres sure ulcer acquired in [facility] Externally apply 1 each topically [...] Acute cystitis 04/04/2019 Ulcer, surgical 06/07/2011 S/P INTERIOR DESIGN PROFESSIONAL shunt 04/29/2011 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) 08/04/2008 Overview: Kyphosis Neurogenic bladder 07/22/2003 Overview: LW Onset: 44Zrh87 ; Paralysis Bladder Neurogenic bowel 07/22/2003 Overview: LW Onset: 62Ktr33 Paraplegia 07/22/2003 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/2003 Overview: LW Onset: 30Prr85 ; Short Stature 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/22/2003 Overview: LW Modifier: shunted LW Onset: 57Dpu46 ; Spina Bifida Lumbar w Hydrocephalus Resolved Problems Problem Noted Date Diagnosed Date Resolved Date Acute kidney failure, unspecified (H24) 02/10/2020 03/05/2023 Immunizations Name Administration Dates Next Due DTAP (<7y) 01/18/2008,05/06/2005 DTaP, Unspecified 01/16/2015 DTaP/HepB/IPV 05/27/2003,03/21/2003,2002 Flu, Unspecified 02/26/2016,02/21/2009, 4 J1u4-74 Novel Flu 03/18/2009 E2a8-73 Novel Flu P-free 03/30/2004,05/27/2003 HEPATITIS A (PEDS [...] 12/08/2023 9:35 AM CDT Plan of Treatment Not on file Medical Devices Implanted Type Area Disability Advocate Device Identifier Shelf Expiration Date Model / Serial / Lot Stent Ureteral Percuflex Plus [id number] - [id number] Implanted:Qty: 1 on 11/12/2021 by Carlos Joyner MD at [facility] Stent Right: Abdomen [employer] [id number] 12/26/2022 [id number] Ureteral Catheter 5 [place] Implanted:Qty: 1 on 03/31/2023 by Elizabeth Jacobsen MD at [facility] Right: Ureter 02/02/2026 [id number] Description:5 cymro Uretera l catheter used as a stent in right ureter 5 [place] Open Ended Catheter Implanted:Qty: 1 on 03/31/2023 by Elizabeth Jacobsen MD at [facility] Left: Ureter 02/19/2026 [id number] Explanted Type Area Disability Advocate Device Identifier Shelf Expiration Date Model / Serial / Lot Stent Ureteral Percuflex Plus [id number] - [id number] Implanted:Qty: 1 on 05/10/2021 by Carlos Joyner MD at [facility] Explanted:Qty: 1 on 08/09/2021 by Jane Gomez MD at [facility] Stent Right: Urethra [employer] 06/14/2022 [id number] Description:Ureter Stent Ureteral Percuflex Plus [id number] - [id number] Implanted:Qty: 1 on 05/10/2021 by Carlos Joyner MD at [facility] Explanted:Qty: 1 on 08/09/2021 by Jane Gomez MD at [facility] Stent Left: Urethra [employer] 07/25/2022 [id number] Stent Ureteral Percuflex Plus [id number] - [id number] Implanted:Qty: 1 on 08/09/2021 by Jane Gomez MD at [facility] Explanted:Qty: 1 on 11/12/2021 at [facility] Stent Right: Ureter [employer] 02/29/2024 [id number] Stent Ureteral Percuflex Plus [id number] - [id number] Implanted:Qty: 1 on 08/09/2021 by Jane Gomez MD at [facility] Explanted:Qty: 1 on 11/12/2021 at [facility] Stent Right: Ureter [employer] 02/29/2024 [id number] 5 Fr X 22cm Ureteral Stent Explanted:Qty: 1 on 02/07/2020 by Carlos Joyner MD at [facility] COOK 5 Fr X 22cm Ureteral Stent Explanted:Qty: 1 on 02/07/2020 by Carlos Joyner MD at [facility] Advance Directives For more information, please contact: [phone] Documents on File Type Date Recorded Patient Wire Drawer Expl anation Advance Directives and Living Will [...] continue PREVIOUSLY ORDERED code status Care Teams Community Support Professional Relationship Specialty [place] [address] [place] [address] PCP - General 03/05/23 Carlos Joyner MD [address] [place] [address] 941605 Urology 12/09/19 Jadon Murray MD [facility] [address] [id number] Referring Physician Pediatric Surgery 12/09/19 Maru Villagomez, RN Registered Nurse 12/10/19 Ang Slade MD [address] [place] [address] 695015 Urology 04/24/20 Carlos Joyner MD [address] [place] [address] 237125 Assigned Surgical Provider 12/24/20 Ang Slade MD [address] [address] Urology 12/18/22 Lakshmi Wilhelm PA-C [address] [place] [address] 249495 Physician Certified Nurse Operating Room Urology 02/03/23 [place] [address] [facility] [place] [address] Assigned PCP 02/06/23 Alissa Perez PA-C [address] [place] [address] 349215 Physician Certified Nurse Operating Room Surgery 09/04/23 Lakshmi Wilhelm PA-C [address] [place] [address] 630295 Physician Certified Nurse Operating Room Urology 09/16/23
--- OUTSIDE RECORDS SUMMARY | 2024-02-05 16:05 | XMS_ITS | Encounter Summary ---
Author Organization [place] Address [address] [place] [address]. [place] [address] Care Team Providers Care Professor Of Anthropology Name Role Phone Carlos Joyner MD Unavailable [phone] Jadon Murray MD Unavailable [phone] Maru Villagomez RN Unavailable Unavailable Ang Slade MD Unavailable +[phone] Carlos Joyner MD Unavailable +[phone] Ang Slade MD Unavailable [phone] Lakshmi Wilhelm-C Unavailable [phone] Heladio Willoughby MD Primary Care Provider [phone] Heladio Willoughby MD Unavailable Alissa Perez PA-C Unavailable [phone] LaLakshmi morales-C Unavailable [phone] Reason for Visit * Reason Onset Date Comments Forms 12/29/2023 [facility] Encounter Details Date Type Department Care Team (Late st Contact Info) Description 12/29/2023 Telephone [facility] [address] [place] [address] [place] [address] [place] [address] Forms ([facility] - [facility]continence [facility]) Social History Tobacco Use Types Packs/Day Years [...] * Telephone Encounter - Kasia Gutierrez - 12/29/2023 2:38 PM CDT Faxed. Kasia Romero Lead Chief Risk Officer [facility] * Telephone Encounter - Heladio Willoughby MD - 12/29/2023 1:53 PM CDT Signed. Placed in outgoing box. Heladio Willoughby MD [facility] Haines 12/29/2023 * Telephone Encounter - Kasia Gutierrez - 12/29/2023 8:42 AM CDT Forms/Letter Request Type of form/letter: Incontinence Supplies Do we have the form/letter: Yes: Incontinence Supply Who is the form from? [facility] (if other please explain) Where did/will the form come from? form was faxed in When is form/letter needed by: RUPA How would you like the form/letter returned: Form placed in provider's basket for review and signature Kasia Gutierrez Lead Chief Risk Officer [facility] documented in this encounter Plan of Treatment Not on file documented as of this encounter Visit Diagnoses Not on filedocumented in this encounter Care Teams Professor Of Anthropology Relationship Specialty Start [place] [address] [place] [address] PCP - General 03/05/23 Carlos Joyner MD [address] [place] [address] 767505 Urology 12/09/19 Jadon Murray MD [facility] 2530 [facility] [address] [place] [address] Referring Physician Pediatric Surgery 12/09/19 Maru Villagomez, RN Registered Nurse 12/10/19 Ang Slade MD [address] [place] [address] [address] [place], [place] [phone] Urology 04/24/20 Carlos Joyner MD [address] [place] [address] 254595 Assigned Surgical Provider 12/24/20 Ang Slade MD [address] [place] [address] [phone] Urology 12/18/22 Lakshmi Wilhelm PA-C [address] [place] [address] 779645 Physician Web Marketing Specialist Urology 02/03/23 [place] [address] [place] [address] Assigned PCP 02/06/23 Alissa Perez PA-C [address] [place] [address] 955765 Physician Web Marketing Specialist Surgery 09/04/23 Lakshmi Wilhelm PA-C [address] [place] [address] 184485 Physician Web Marketing Specialist Urology 09/16/23 documented as of this encounter
[2024-02-05 16:06] LABS: Lactate* 0.7 mmol/L (0.5-1.9)
--- OUTSIDE RECORDS SUMMARY | 2024-02-05 16:06 | XMS_ITS | Encounter Summary ---
Author Organization [place] Address [address] [place] [address] Care Team Providers Care Wood Furniture Assembler Name Role Phone Carlos Jonyer MD Unavailable [phone] Jadon Murray MD Unavailable [phone] Maru Villagomez RN Unavailable Unavailable Ignacia Duran MD Primary Care Provider [phone] Ang Slade MD Unavailable [phone] Carlos Joyner MD Unavailable +[phone] Annalise Orta-C Unavailable +[phone] Ang Slade MD Unavailable [phone] Lakshmi Wilhelm-C Unavailable [phone] Heladio Willoughby MD Primary Care Provider [phone] Heladio Willoughby MD Unavailable Alissa Perez PA-C Unavailable [phone] Lakshmi Wilhelm-C Unavailable [phone] Encounter Details Date Type Department Care Team (Late st Contact Info) Description 07/19/2021 [facility] [address] [place] [address] Shyann Rehman Social History Tobacco [...] COVID-19? No / Unsure 06/19/2021 11:16 AM STABLE ATTENDANT documented as of this encounter Plan of [...] documented as of this encounter Care Teams Wood Furniture Assembler Relationship Specialty Start Date End Date Ignacia Duran MD PCP - General Pediatrics 01/20/20 03/04/23 [place] [address] [place] [address] PCP - General 03/05/23 Carlos Joyner MD [address] [place] [address] 625405 Urology 12/09/19 Jadon Murray MD [facility] 2530 [facility] [address] [place], [place] [address] Referring Physician Pediatric Surgery 12/09/19 Maru Villagomez, OTILIO Registered Nurse 12/10/19 Ang Slade MD [address] [place] [address] [address] [place], [place] 302875 Urology 04/24/20 Carlos Joyner MD [address] [place] [address] 639105 Assigned Surgical Provider 12/24/20 Annalise Orta PA-C 5200 [place] [address] Assigned Cancer Care Provider 05/13/21 11/01/22 Ang Slade MD [address] [place] [address] 179985 MD Urology 12/18/22 Lakshmi Wilhelm PA-C [address] [place] [address] 429035 Physician Body Piercer Urology 02/03/23 [place] [address] [place] [address] Assigned PCP 02/06/23 Ailssa Perez PA-C [address] [place] [address] 665625 Physician Body Piercer Surgery 09/04/23 Lakshmi Wilhelm PA-C [address] [place] [address] 221365 Physician Body Piercer Urology 09/16/23 documented as of this encounter
--- OUTSIDE RECORDS SUMMARY | 2024-02-05 16:06 | XMS_ITS | Encounter Summary ---
Author Organization [facility] Address [address] [place] [address] Care Team Providers Care Dramatic Coach Name Role Phone Carlos Joyner MD Unavailable [phone] Jadon Murray MD Unavailable [phone] Maru Villagomez RN Unavailable Unavailable Ignacia Duran MD Primary Care Provider Ang Slade MD Unavailable [phone] Carlos Joyner MD Unavailable +[phone] Annalise Orta-C Unavailable [phone] Ang Slade MD Unavailable [phone] Lakshmi Wilhelm-C Unavailable [phone] Heladio Willoughby MD Primary Care Provider [phone] Heladio Willoughby MD Unavailable Alissa Perez PA-C Unavailable [phone] Lakshmi Wilhelm PA-C Unavailable [phone] Encounter Details Date Type Department Care Team (Late st Contact Info) Description 06/19/2021 [facility] [address] [address] Jenna Mcfadden, OTILIO Social History [...] COVID-19? No / Unsure 06/19/2021 11:16 AM ACID WASHER OPERATOR documented as of this encounter Plan of [...] documented as of this encounter Care Teams Dramatic Coach Relationship Specialty Start Date End Date Ignacia Duran MD PCP - General Pediatrics 01/20/20 03/04/23 [place] [address] [place] [address] PCP - General 03/05/23 Carlos Joyner MD [address] [place] [address] 539355 Urology 12/09/19 Jadon Murray MD [facility] [address] [facility] [address] [place], [place] [phone] Referring Physician Pediatric Surgery 12/09/19 Maru Villagomez, RN Registered Nurse 12/10/19 Ang Slade MD [address] [place] [address] 394 [place], [place] 106295 Urology 04/24/20 Carlos Joyner MD [address] [place] [address] 383065 Assigned Surgical Provider 12/24/20 Annalise Orta PA-C 5200 [place] [address] Assigned Cancer Care Provider 05/13/21 11/01/22 Ang Slade MD [address] [place] [address] 225865 MD Urology 12/18/22 Lakshmi Wilhelm PA-C [address] [place] [address] 886365 Physician Loss Prevention Research Engineer Urology 02/03/23 [place] [address] [place] [address] Assigned PCP 02/06/23 Alissa Perez PA-C [address] [place] [address] 716635 Physician Loss Prevention Research Engineer Surgery 09/04/23 Lakshmi Wilhelm PA-C [address] [place] [address] 990435 Physician Loss Prevention Research Engineer Urology 09/16/23 documented as of this encounter
--- OUTSIDE RECORDS SUMMARY | 2024-02-05 16:06 | XMS_ITS | Encounter Summary ---
Author Organization [facility] Address [facility] [place] [address] Care Team Providers Care Pianos And Organs Salesperson Name Role Phone Carlos Joyner MD Unavailable [phone] Jadon Murray MD Unavailable [phone] Maru Villagomez RN Unavailable Unavailable Ang Slade MD Unavailable [phone] Carlos Joyner MD Unavailable +[phone] Ang Slade MD Unavailable [phone] Lakshmi Wilhelm-C Unavailable [phone] Heladio Willoughby MD Primary Care Provider [phone] Heladio Willoughby MD Unavailable Alissa Perez PA-C Unavailable [phone] LaLakshmi morales-C Unavailable [phone] Encounter Details Date Type Department Care Team (Late st Contact Info) Description 03/27/2023 My[facility] Medical Advice UR PREOP/PHASE II 2450 [place] [phone] Lisette Salinas RN Social History Tobacco Use [...] an abandoned building, in an overnight senior care, or couch-surfing.) Yes 02/26/2023 Are you worried about losing [...] on filedocumented in this encounter Care Teams Pianos And Organs Salesperson Relationship Specialty [place] [address] [place] [address] PCP - General 03/05/23 Carlos Joyner MD 9 [place] [address] Urology 12/09/19 Jadon Murray MD [facility] [address] [address] Referring Physician Pediatric Surgery 12/09/19 Maru Villagomez, RN Registered Nurse 12/10/19 Ang Slade MD [address] [place] [address] 728535 Urology 04/24/20 Carlos Joyner MD [address] [place] [address] 308015 Assigned Surgical Provider 12/24/20 Ang Slade MD [address] [place] [address] Urology 12/18/22 Lakshmi Wilhelm PA-C [address] [place] [address] 857915 Physician Whipper Beater Urology 02/03/23 [place] [address] [place] [address] Assigned PCP 02/06/23 Alissa Perez PA-C [address] [place] [address] 987015 Physician Whipper Beater Surgery 09/04/23 Lakshmi Wilhelm PA-C [address] [place] [address] 201185 Physician Whipper Beater Urology 09/16/23 documented as of this encounter
--- OUTSIDE RECORDS SUMMARY | 2024-02-05 16:06 | XMS_ITS | Encounter Summary ---
Author Organization [facility] Address [address] [place] [address] Care Team Providers Care Hot Box Operator Name Role Phone Carlos Joyner MD Unavailable [phone] Jadon Murray MD Unavailable [phone] Maru Villagomez RN Unavailable Unavailable Ignacia Duran MD Primary Care Provider [phone] Ang Slade MD Unavailable [phone] Carlos Joyner MD Unavailable +[phone] Ang Slade MD Unavailable [phone] Lakshmi WilhelmC Unavailable [phone] Heladio Willoughby MD Primary Care Provider [phone] Heladio Willoughyb MD Unavailable Alissa Perez-C Unavailable [phone] Lakshmi WilhelmC Unavailable [phone] Encounter Details Date Type Department Care Team (Late st Contact Info) Description 01/07/2023 [facility] Medical Advice [facility] U[facility] Clinic [address] [place] [address] Analisa Palacio RN Social History [...] documented as of this encounter Care Teams Hot Box Operator Relationship Specialty Start Date End Date Ignacia Duran MD PCP - General Pediatrics 01/20/20 03/04/23 [place] [address] [place] [address] PCP - General 03/05/23 Carlos Joyner MD [address] [place] [address] 283115 Urology 12/09/19 Jadon Murray MD [facility] 2530 [facility] 550 [place] [address] Referring Physician Pediatric Surgery 12/09/19 aMru Villagomez, OTILIO Registered Nurse 12/10/19 Ang Slade MD [address] [place] [address] 394 [place] [address] Urology 04/24/20 Carlos Joyner MD [address] [place] [address] 32855 Assigned Surgical Provider 12/24/20 Ang Slade MD [address] [place] [address] Urology 12/18/22 Lakshmi Wilhelm PA-C [address] [place] [address]909 Physician Publicity Writer Urology 02/03/23 [place] [address] [place] [address] Assigned PCP 02/06/23 Alissa Perez PA-C [address] [place] [address] 096585 Physician Publicity Writer Surgery 09/04/23 Lakshmi Wilhelm PA-C [address] [place] [address] 334175 Physician Publicity Writer Urology 09/16/23 documented as of this encounter
--- OUTSIDE RECORDS SUMMARY | 2024-02-05 16:06 | XMS_ITS | Encounter Summary ---
Author Organization [facility] Address [address] [place] [address] Care Team Providers Care Airplane Woodworker Name Role Phone Carlos Joyner MD Unavailable [phone] Jadon Murray MD Unavailable [phone] Maru Villagomez RN Unavailable Unavailable Ignacia Duran MD Primary Care Provider [phone] Ang Slade MD Unavailable [phone] Carlos Joyner MD Unavailable +[phone] Annalise Orta-C Unavailable [phone] Ang Slade MD Unavailable Lakshmi Wilhelm-C Unavailable Heladio Willoughby MD Primary Care Provider Heladio Willoughby MD Unavailable Alissa Perez PA-C Unavailable [phone] Lakshmi Wilhelm-C Unavailable Encounter Details Date Type Department Care Team (Late st Contact Info) Description 09/17/2021 [facility] U[facility] Clinic [address] [address] Carlos Joyner MD [address] [place] [address] Social History Tobacco Use Types Packs/Day [...] documented as of this encounter Care Teams Airplane Woodworker Relationship Specialty Start Date End Date Ignacia Duran MD PCP - General Pediatrics 01/20/20 03/04/23 [place] [address] [place] [address] PCP - General 03/05/23 Carlos Joyner MD 9 [place] [address] Urology 12/09/19 Jadon Murray MD [facility] [address] [address] Referring Physician Pediatric Surgery 12/09/19 Maru Villagomez, OTILIO Registered Nurse 12/10/19 Ang Slade MD [address] [place] [address] Urology 04/24/20 Carlos Joyner MD [address] [place] [address] Assigned Surgical Provider 12/24/20 Annalise Orta PA-C 5200 [place] [address] Assigned Cancer Care Provider 05/13/21 11/01/22 Ang Slade MD [address] [place] [address] Urology 12/18/22 Lakshmi Wilhelm PA-C [address] [place] [address] Physician Venetian Blind Assembler Urology 02/03/23 [place] [address] [place] [address] Assigned PCP 02/06/23 Alissa Perez PA-C [address] [place] [address] Physician Venetian Blind Assembler Surgery 09/04/23 Lakshmi Wilhelm PA-C [address] [place] [address] Physician Venetian Blind Assembler Urology 09/16/23 documented as of this encounter
--- OUTSIDE RECORDS SUMMARY | 2024-02-05 16:06 | XMS_ITS | Encounter Summary ---
Author Organization [place] Address [address] [place] [address] Care Team Providers Care Battery Container Tester Name Role Phone Carlos Joyner MD Unavailable [phone] Jadon Murray MD Unavailable [phone] Maru Villagomez RN Unavailable Unavailable Ignacia Duran MD Primary Care Provider Ang Slade MD Unavailable [phone] Carlos Joyner MD Unavailable +[phone] Annalise Orta PA-C Unavailable Ang Slade MD Unavailable Lakshmi Wilhelm PA-C Unavailable Heladio Willoughby MD Primary Care Provider [phone] Heladio Willoughby MD Unavailable Alissa PerezC Unavailable [phone] Lakshmi Wilhelm PA-C Unavailable [phone] Encounter Details Date Type Department Care Team (Late st Contact Info) Description 10/12/2021 [facility] [employer] 909 [facility] 5th [place] [address] Tanisha Coe PA-C 909 [place] [address] Social History Tobacco Use Types [...] from Care everywhere chart review. Removing MRSA 02.06.06/17/2019 02/06/2023 9:41 AM C DT documented as of this encounter Care Teams Battery Container Tester Relationship Specialty Start Date End Date Ignacia Duran MD PCP - General Pediatrics 01/20/20 03/04/23 [place] [address] [place] [address] PCP - General 03/05/23 Carlos Joyner MD [address] [place] [address] 921895 Urology 12/09/19 Jadon Murray MD [facility] [address] [address] Referring Physician Pediatric Surgery 12/09/19 Maru Villagomez, OTILIO Registered Nurse 12/10/19 Ang Slade MD [address] [place] [address] 980075 Urology 04/24/20 Carlos Joyner MD [address] [place] [address] 437[address] Assigned Surgical Provider 12/24/20 Annalise Orta PA-C 5200 [place] [address] Assigned Cancer Care Provider 05/13/21 11/01/22 Ang Slade MD [address] [place] [address] MD Urology 12/18/22 Lakshmi Wilhelm PA-C [address] [place] [address] 30952 Physician Senior Reliability Engineer Urology 02/03/23 [place] [address] [place] [address] Assigned PCP 02/06/23 Alissa Perez PA-C [address] [place] [address] 321435 Physician Senior Reliability Engineer Surgery 09/04/23 Lakshmi Wilhelm PA-C [address] [place] [address] Physician Senior Reliability Engineer Urology 09/16/23 documented as of this encounter
--- OUTSIDE RECORDS SUMMARY | 2024-02-05 16:06 | XMS_ITS | Encounter Summary ---
Author Organization [place] Address [address] [place] [address] 0[address]33 Care Team Providers Care Bolt Loader Name Role Phone Carlos Joyner MD Unavailable [phone] Jadon Murray MD Unavailable [phone] Maru Villagomez RN Unavailable Unavailable Ignacia Duran MD Primary Care Provider [phone] Carlos Joyner MD Unavailable +[phone] Ang Slade MD Unavailable [phone] Ang Slade MD Unavailable +[phone] Carlos Joyner MD Unavailable +[phone] Annalise Orta-C Unavailable +[phone] Ang Slade MD Unavailable +[phone] Lakshmi Wilhelm-C Unavailable +[phone] Heladio Willoughby MD Primary Care Provider [phone] Heladio Willoughby MD Unavailable Alissa Perez-C Unavailable [phone] Lakshmi Wilhelm-C Unavailable [phone] Reason for Visit * Reason Comments Orders Encounter Details Date Type Department Care Team (Late st Contact Info) Description 02/02/2020 Orders Only [facility] [address] [facility] 4th [place] [address] Maru Villagomez, RN Social History [...] documented as of this encounter Care Teams Bolt Loader Relationship Specialty Start Date End Date Ignacia Duran MD PCP - General Pediatrics 01/20/20 03/04/23 [place] [address] [place] [address] PCP - General 03/05/23 Carlos Joyner MD 9 [place], [place] 562055 Urology 12/09/19 Jadon Murray MD [facility] [address] [id number] Referring Physician Pediatric Surgery 12/09/19 Maru Villagomez, RN Registered Nurse 12/10/19 Carlos Joyner MD 9 [place], [place] 20011455 Assigned Surgical Provider 03/17/20 08/12/20 Ang Slade MD [address] [place] [address] 9[address]53 Urology 04/24/20 Ang Slade MD [address] [place] [address] 13079 Assigned Surgical Provider 08/13/20 12/23/20 Carlos Joyner MD [address] [place] [address] 414315 Assigned Surgical Provider 12/24/20 Annalise Orta PA-C 5200 [place] [address] Assigned Cancer Care Provider 05/13/21 11/01/22 Ang Slade MD [address] [place] [address] 24225 Urology 12/18/22 Lakshmi Wilhelm PA-C [address] [place] [address] 255255 Physician Yard Switch Operator Urology 02/03/23 [place] [address] [place] [address] Assigned PCP 02/06/23 Alissa Perez PA-C [address] [place] [address] 305225 Physician Yard Switch Operator Surgery 09/04/23 Lakshmi Wilhelm PA-C [address] [place] [address] 60391 Physician Yard Switch Operator Urology 09/16/23 documented as of this encounter
--- OUTSIDE RECORDS SUMMARY | 2024-02-05 16:06 | XMS_ITS | Encounter Summary ---
Author Organization [facility] Address [address] [place] [address] 36692 Care Team Providers Care Acoustic Engineer Name Role Phone Carlos Joyner MD Unavailable [phone] Jadon Murray MD Unavailable +[phone] Maru Villagomez RN Unavailable Unavailable Ignacia Duran MD Primary Care Provider [phone] Ang Slade MD Unavailable +[phone] Carlos Joyner MD Unavailable +[phone] Ang Slade MD Unavailable +[phone] Lakshmi WilhelmC Unavailable [phone] Heladio Willoughby MD Primary Care Provider [phone] Heladio Willoughby MD Unavailable Alissa Perez-C Unavailable [phone] Lakshmi WilhelmC Unavailable [phone] Encounter Details Date Type Department Care Team (Late st Contact Info) Description 12/30/2022 [facility] Medical Advice [facility] [address] [place] [address] Analisa Palacio RN Social History [...] documented as of this encounter Care Teams Acoustic Engineer Relationship Specialty Start Date End Date Ignacia Duran MD PCP - General Pediatrics 01/20/20 03/04/23 [place] [address] [place] [address] PCP - General 03/05/23 Carlos Joyner MD [address] [place] [address] 559885 Urology 12/09/19 Jadon Murray MD [facility] [address] [facility] 550 [place] [address] Referring Physician Pediatric Surgery 12/09/19 Maru Villagomez, OTILIO Registered Nurse 12/10/19 Ang Slade MD [address] [place] [address] 394 [place] [address] Urology 04/24/20 Carlos Joyner MD [address] [place] [address] 13079 Assigned Surgical Provider 12/24/20 Ang Slade MD [address] [place] [address] 15139 Urology 12/18/22 Lakshmi Wilhelm PA-C [address] [place] [address] 14428 Physician Senior Energy Trader Urology 02/03/23 [place] [address] [place] [address] Assigned PCP 02/06/23 Alissa Perez PA-C [address] [place] [address] 152745 Physician Senior Energy Trader Surgery 09/04/23 Lakshmi Wilhelm PA-C [address] [place] [address] 769695 Physician Senior Energy Trader Urology 09/16/23 documented as of this encounter
--- OUTSIDE RECORDS SUMMARY | 2024-02-05 16:06 | XMS_ITS | Encounter Summary ---
Author Organization [place] Address [address] [place] [address]12 Care Team Providers Care Stitch Bonding Machine Tender Helper Name Role Phone Carlos Joyner MD Unavailable [phone] Jadon Murray MD Unavailable +[phone] Maru Villagomez RN Unavailable Unavailable Ignacia Duran MD Primary Care Provider Ang Slade MD Unavailable +[phone] Carlos Joyner MD Unavailable +[phone] Annalise Orta-C Unavailable +[phone] Ang Slade MD Unavailable [phone] Lakshmi Wilhelm-C Unavailable [phone] Heladio Willoughby MD Primary Care Provider [phone] Heladio Willoughby MD Unavailable Alissa Perez PA-C Unavailable [phone] Lakshmi Wilhelm-C Unavailable [phone] Encounter Details Date Type Department Care Team (Late st Contact Info) Description 07/31/2021 [facility] Medical Advice [facility] [address] 5th [place] [address] Makenzie Drummond, RN Social History [...] from Care everywhere chart review. Removing MRSA 9.14.23 06/17/2019 02/06/2023 9:41 AM C DT documented as of this encounter Care Teams Stitch Bonding Machine Tender Helper Relationship Specialty Start Date End Date Ignacia Duran MD PCP - General Pediatrics 01/20/20 03/04/23 [place] [address] [place] [address] PCP - General 03/05/23 Carlos Joyner MD [address] [place] [address] 298455 Urology 12/09/19 Jadon Murray MD [facility] 2530 [facility] 550 [place], [place] [id number] Referring Physician Pediatric Surgery 12/09/19 Maru Villagomez, RN Registered Nurse 12/10/19 Ang Slade MD [address] [place] [address] 394 [place], [place] 808505 Urology 04/24/20 Carlos Joyner MD [address] [place] [address] 737465 Assigned Surgical Provider 12/24/20 Annalise Orta PA-C 5200 [place] [address] Assigned Cancer Care Provider 05/13/21 11/01/22 Ang Slade MD [address] [place] [address] 753525 MD Urology 12/18/22 Lakshmi Wilhelm PA-C [address] [place] [address] 00549455 Physician Parlor Chaperone Urology 02/03/23 [place] [address] [place] [address] Assigned PCP 02/06/23 Alissa Perez PA-C [address] [place] [address] 142935 Physician Parlor Chaperone Surgery 09/04/23 Lakshmi Wilhelm PA-C [address] [place] [address] 991315 Physician Parlor Chaperone Urology 09/16/23 documented as of this encounter
--- OUTSIDE RECORDS SUMMARY | 2024-02-05 16:06 | XMS_ITS | Encounter Summary ---
Author Organization [place] Address [address] [place] [address] 26950 Care Team Providers Care Kennel Aide Name Role Phone Carlos Joyner MD Unavailable [phone] Jadon Murray MD Unavailable [phone] Maru Villagomez RN Unavailable Unavailable Ignacia Duran MD Primary Care Provider [phone] Carlos Joyner MD Unavailable +[phone] Ang Slade MD Unavailable [phone] Ang Slade MD Unavailable [phone] Carlos Joyner MD Unavailable +[phone] Annalise Orta-C Unavailable +[phone] Ang Slade MD Unavailable [phone] Lakshmi Wilhelm-C Unavailable [phone] Heladio Willoughby MD Primary Care Provider [phone] Heladio Willoughby MD Unavailable Alissa Perez-C Unavailable [phone] Lakshmi Wilhelm-C Unavailable [phone] Reason for Visit * Reason Onset Date Comments Call Back 06/07/2020 Stent FYI Encounter Details Date Type Department Care Team (Late st Contact Info) Description 06/07/2020 [facility] Urology [address] 4th [place] [address] Ang Slade MD [address] [facility] 394 [place] [address] Call Back (Stent FYI) Social History Tobacco [...] Called them back message sent to [email or web address] YSIS INTERN * Telephone Encounter - Zo Geiger - 06/07/2020 3:16 PM CST [facility] Call Center Phone Message May a detailed message be left on voicemail: yes Reason for Call: Other: Cristine calling to let us know that Laina's stent was put in by a providerat [facility] in the Emergency room on 02/04. Cristine is hoping to get a call back to discuss. Action Taken: Message routed to: [facility] Urology Travel Screening: Not Applicable YS[employer] INTERN documented in this encounter Plan of Treatment [...] documented as of this encounter Care Teams Kennel Aide Relationship Specialty Start Date End Date Ignacia Duran MD PCP - General Pediatrics 01/20/20 03/04/23 [place] [address] [facility] [place] [address] PCP - General 03/05/23 Carlos Joyner MD [address] [place] [address] Urology 12/09/19 Jadon Murray MD [facility] [address] [address] Referring Physician Pediatric Surgery 12/09/19 Maru Villagomez, RN Registered Nurse 12/10/19 Carlos Joyner MD [address] [place] [address] 38926 Assigned Surgical Provider 03/17/20 08/12/20 Ang Slade MD [address] [facility] 394 [place] [address] Urology 04/24/20 Ang Slade MD [address] [facility] 394 [place] [address] Assigned Surgical Provider 08/13/20 12/23/20 Carlos Joyner MD [address] [place] [address] 88396 Assigned Surgical Provider 12/24/20 Annalise Orta PA-C 5200 [place] [address] Assigned Cancer Care Provider 05/13/21 11/01/22 Ang Slade MD [address] [place] [address] 818105 Urology 12/18/22 Lakshmi Wilhelm PA-C [address] [place] [address] 518805 Physician Art Educator Urology 02/03/23 [place] [address] [place] [address] Assigned PCP 02/06/23 Alissa Perez PA-C [address] [place] [address] 169055 Physician Art Educator Surgery 09/04/23 Lakshmi Wilhelm PA-C [address] [place] [address] 88411 Physician Art Educator Urology 09/16/23 documented as of this encounter
--- OUTSIDE RECORDS SUMMARY | 2024-02-05 16:06 | XMS_ITS | Encounter Summary ---
Author Organization [place] Address [address] [place] [address] 60255 Care Team Providers Care Rope Silica Machine Operator Name Role Phone Carlos Joyner MD Unavailable [phone] Jadon Murray MD Unavailable [phone] Maru Villagomez RN Unavailable Unavailable Ignacia Duran MD Primary Care Provider Ang Slade MD Unavailable [phone] Carlos Joyner MD Unavailable +[phone] Annalise Orta-C Unavailable Ang Slade MD Unavailable +[phone] Lakshmi Wilhelm-C Unavailable eHladio Willoughby MD Primary Care Provider [phone] Heladio Willoughby MD Unavailable Alissa Perez PA-C Unavailable [phone] Lakshmi Wilhelm-C Unavailable Encounter Details Date Type Department Care Team (Late st Contact Info) Description 10/01/2021 [facility] U[facility] Clinic [address] [address] Carlos Joyner MD [address] [place] [address] Social History Tobacco Use Types Packs/Day [...] documented as of this encounter Care Teams Rope Silica Machine Operator Relationship Specialty Start Date End Date Ignacia Duran MD PCP - General Pediatrics 01/20/20 03/04/23 [place] [address] [place] [address] PCP - General 03/05/23 Carlos Joyner MD [address] [place] [address] 494985 Urology 12/09/19 Jadon Murray MD [facility] 2530 [facility] 550 [place] [address] Referring Physician Pediatric Surgery 12/09/19 Maru Villagomez, OTILIO Registered Nurse 12/10/19 Ang Slade MD [address] [place] [address] 394 [place], [place] 984965 Urology 04/24/20 Carlos Joyner MD [address] [place] [address] 57578 Assigned Surgical Provider 12/24/20 Annalise Orta PA-C 5200 [place] [address] Assigned Cancer Care Provider 05/13/21 11/01/22 Ang Slade MD [address] [place] [address] MD Urology 12/18/22 Lakshmi Wilhelm PA-C [address] [place] [address] 22957 Physician Casualty Claims Supervisor Urology 02/03/23 [place] [address] [place] [address] Assigned PCP 02/06/23 Alissa Perez PA-C [address] [place] [address] 016095 Physician Casualty Claims Supervisor Surgery 09/04/23 Lakshmi Wilhelm PA-C [address] [place] [address] 185435 Physician Casualty Claims Supervisor Urology 09/16/23 documented as of this encounter
--- OUTSIDE RECORDS SUMMARY | 2024-02-05 16:06 | XMS_ITS | Encounter Summary ---
Author Organization [place] Address [address] [place] [address] Care Team Providers Care Marketing Senior Recruiter Name Role Phone Carlos Joyner MD Unavailable +[phone] Jadon Murray MD Unavailable [phone] Maru Villagomez RN Unavailable Unavailable Ignacia Duran MD Primary Care Provider Ang Slade MD Unavailable +[phone] Carlos Joyner MD Unavailable +[phone] Annalise Orta-C Unavailable +[phone] Ang Slade MD Unavailable [phone] Lakshmi Wilhelm-C Unavailable [phone] Heladio Willoughby MD Primary Care Provider [phone] Heladio Willoughby MD Unavailable Alissa Perez PA-C Unavailable [phone] Lakshmi Wilhelm-Juan A Unavailable [phone] Encounter Details Date Type Department Care Team (Late st Contact Info) Description 04/16/2021 [facility] [address] [address] Berna Britton Social History Tobacco [...] documented as of this encounter Care Teams Marketing Senior Recruiter Relationship Specialty Start Date End Date Ignacia Duran MD PCP - General Pediatrics 01/20/20 03/04/23 [place] [address] [place] [address] PCP - General 03/05/23 Carlos Joyner MD [address] [place] [address] 6[address] Urology 12/09/19 Jadon Murray MD [facility] [address] [facility] 550 [place] [address] Referring Physician Pediatric Surgery 12/09/19 Maru Villagomez, OTILIO Registered Nurse 12/10/19 Ang Slade MD [address] [place] [address] 394 [place], [place] 967165 Urology 04/24/20 Carlos Joyner MD [address] [place] [address] 13253 Assigned Surgical Provider 12/24/20 Annalise Orta PA-C 5200 [place] [address] Assigned Cancer Care Provider 05/13/21 11/01/22 Ang Slade MD [address] [place] [address] 601135 Urology 12/18/22 Lakshmi Wilhelm PA-C [address] [place] [address] 770565 Physician Attendant Campground Urology 02/03/23 [place] [address] [place] [address] Assigned PCP 02/06/23 Alissa Perez PA-C [address] [place] [address] 267075 Physician Attendant Campground Surgery 09/04/23 Lakshmi Wilhelm PA-C [address] [place] [address] 795805 Physician Attendant Campground Urology 09/16/23 documented as of this encounter
--- OUTSIDE RECORDS SUMMARY | 2024-02-05 16:06 | XMS_ITS | Encounter Summary ---
Author Organization [place] Address [address] [place] [address] 66056 Care Team Providers Care Outpatient Phlebotomist Name Role Phone Carlos Joyner MD Unavailable [phone] Jadon Murray MD Unavailable [phone] Maru Villagomez RN Unavailable Unavailable Ignacia Duran MD Primary Care Provider Ang Slade MD Unavailable [phone] Carlos Joyner MD Unavailable +[phone] Annalise Orta-C Unavailable +[phone] Ang Slade MD Unavailable [phone] Lakshmi Wilhelm-C Unavailable [phone] Heladio Willoughby MD Primary Care Provider [phone] Heladio Willoughby MD Unavailable Alissa Perez PA-C Unavailable [phone] Lakshmi Wilhelm-C Unavailable [phone] Encounter Details Date Type Department Care Team (Late st Contact Info) Description 11/14/2021 [facility] [address] [address] Analisa Palacio, OTILIO Social History [...] documented as of this encounter Care Teams Outpatient Phlebotomist Relationship Specialty Start Date End Date Ignacia Duran MD PCP - General Pediatrics 01/20/20 03/04/23 [place] [address] [place] [address] PCP - General 03/05/23 Carlos Joyner MD 9 [place] [address] Urology 12/09/19 Jadon Murray MD [facility] 2530 [facility] 550 [place] [address] Referring Physician Pediatric Surgery 12/09/19 Maru Villagomez, OTILIO Registered Nurse 12/10/19 Ang Slade MD [address] [place] [address] 394 [place], [place] 794705 Urology 04/24/20 Carlos Joyner MD [address] [place] [address] 63780 Assigned Surgical Provider 12/24/20 Annalise Orta PA-C 5[address] [facility] [place] [address] Assigned Cancer Care Provider 05/13/21 11/01/22 Ang Slade MD [address] [place] [address] 947035 Urology 12/18/22 Lakshmi Wilhelm PA-C [address] [place] [address] 794105 Physician Self Pay Collector Urology 02/03/23 [place] [address] [place] [address] Assigned PCP 02/06/23 Alissa Perez PA-C [address] [place] [address] 45113 Physician Self Pay Collector Surgery 09/04/23 Lakshmi Wilhelm PA-C [address] [place] [address] 56241 Physician Self Pay Collector Urology 09/16/23 documented as of this encounter
--- OUTSIDE RECORDS SUMMARY | 2024-02-05 16:06 | XMS_ITS | Encounter Summary ---
Author Organization [place] Address [address] [place] [address] Care Team Providers Care Loading Machine Operator Name Role Phone Carlos Joyner MD Unavailable [phone] Jadon Murray MD Unavailable [phone] Maru Villagomez RN Unavailable Unavailable Ignacia Duran MD Primary Care Provider Ang Slade MD Unavailable [phone] Carlos Joyner MD Unavailable +[phone] Annalise Orta-C Unavailable [phone] Ang Slade MD Unavailable Lakshmi Wilhelm-C Unavailable Heladio Willoughby MD Primary Care Provider [phone] Heladio Willoughby MD Unavailable Alissa Perez PA-C Unavailable [phone] Lakshmi Wilhelm-Juan A Unavailable Reason for Visit * Reason Onset Date Comments Orders 01/01/2022 Syringes - 35 an d 60 ml requested Encounter Details Date Type Department Care Team (Late st Contact Info) Description 01/01/2022 [facility] Urology Clinic [address] 4th [place] [address] Carlos Joyner MD [address] [place] [address] Orders (Syringes - 35 and 60 [...] In the last 10 days, have ivelisse cervantes been in contact with someone who was [...] have to call her home support person, Alecia, or send a mychart. Alecia is her [...] order to [facility] at [phone]. Thank you. Action Taken: Other: Urology Travel [...] documented as of this encounter Care Teams Loading Machine Operator Relationship Specialty Start Date End Date Ignacia Duran MD PCP - General Pediatrics 01/20/20 03/04/23 [place] [address] [place] [address] PCP - General 03/05/23 Carlos Joyner MD [address] [place] [address] 10866 Urology 12/09/19 Jadon Murray MD [facility] [address] [facility] 550 [place], [place] 60526404 Referring Physician Pediatric Surgery 12/09/19 Maru Villagomez, OTILIO Registered Nurse 12/10/19 Ang Sl[place] MD [address] [place] [address] 394 [place], [place] 635345 Urology 04/24/20 Carlos Joyner MD [address] [place] [address] 62602 Assigned Surgical Provider 12/24/20 Annalise Orta PA-C 5200 [place] [address] Assigned Cancer Care Provider 05/13/21 11/01/22 Ang Slade MD [address] [place] [address] 024695 MD Urology 12/18/22 Lakshmi Wilhelm PA-C [address] [place] [address] 459455 Physician General Internal Medicine Doctor Urology 02/03/23 [place] [address] [place] [address] Assigned PCP 02/06/23 Alissa Perez PA-C [address] [place] [address] 484805 Physician General Internal Medicine Doctor Surgery 09/04/23 Lakshmi Wilhelm PA-C [address] [place] [address] 593445 Physician General Internal Medicine Doctor Urology 09/16/23 documented as of this encounter
--- OUTSIDE RECORDS SUMMARY | 2024-02-05 16:06 | XMS_ITS | Encounter Summary ---
Author Organization [facility] Address [address] [place] [address] 37132 Care Team Providers Care Meat Team Lead Name Role Phone Carlos Joyner MD Unavailable [phone] Jadon Murray MD Unavailable [phone] Maru Villagomez RN Unavailable Unavailable Ignacia Duran MD Primary Care Provider Ang Slade MD Unavailable [phone] Carlos Joyner MD Unavailable [phone] Annalise Orta-C Unavailable [phone] Ang Slade MD Unavailable Lakshmi Wilhelm-C Unavailable [phone] Heladio Willoughby MD Primary Care Provider [phone] Heladio Willoughby MD Unavailable Alissa Perez PA-C Unavailable [phone] Lakshmi Wilhelm-Juan A Unavailable Reason for Visit * Reason Onset Date Comments Patient/info Update 02/26/2021 pt currently intubated, will nto be able to have uro surgery Encounter Details Date Type Department Care Team (Late st Contact Info) Description 02/26/2021 [facility] Urology Clinic [address] 4th [place] [address] Carlos Joyner MD [address] [place] [address] Patient/info Update (pt currently intubated, will [...] Lakshmi Chowdhury - 02/26/2021 2:07 PM CDT [facility] Phone Message May a detailed message be left on voicemail: yes Reason for Call: Other: Edith called in wanting to let Dr. Joyner and his team know that [facility] date [facility]09[facility]21. Please call back if thereare any questions at [phone] Action Taken: Message routed to: Clinics & [...] documented as of this encounter Care Teams Meat Team Lead Relationship Specialty Start Date End Date Ignacia Duran MD PCP - General Pediatrics 01/20/20 03/04/23 [place] [address] [place] [address] PCP - General 03/05/23 Carlos Joyner MD [address] [place] [address] 0[address]12 Urology 12/09/19 Jadon Murray MD [facility] 2530 [facility] [address] [address] Referring Physician Pediatric Surgery 12/09/19 Maru Villagomez, OTILIO Registered Nurse 12/10/19 Ang Slade MD [address] [place] [address] 766135 Urology 04/24/20 Carlos Joyner MD [address] [place] [address] 018065 Assigned Surgical Provider 12/24/20 Annalise Orta PA-C 5200 [place] [address] Assigned Cancer Care Provider 05/13/21 11/01/22 Ang Slade MD [address] [place] [address] 227005 Urology 12/18/22 Lakshmi Wilhelm PA-C [address] [place] [address] 621975 Physician Data Center Solutions Architect Urology 02/03/23 [place] [address] [place] [address] Assigned PCP 02/06/23 Alissa Perez PA-C [address] [place] [address] 21181 Physician Data Center Solutions Architect Surgery 09/04/23 Lakshmi Wilhelm PA-C [address] [place] [address] 43401 Physician Data Center Solutions Architect Urology 09/16/23 documented as of this encounter
--- OUTSIDE RECORDS SUMMARY | 2024-02-05 16:06 | XMS_ITS | Encounter Summary ---
Author Organization [place] Address [address] [place] [address] 17898 Care Team Providers Care Fuse Cutter Name Role Phone Carlos Joyner MD Unavailable [phone] Jadon Murray MD Unavailable [phone] Maru Villagomez RN Unavailable Unavailable Ignacia Duran MD Primary Care Provider Ang Slade MD Unavailable [phone] Carlos Joyner MD Unavailable [phone] Annalise Orta-C Unavailable +[phone] Ang Slade MD Unavailable [phone] Lakshmi Wilhelm-C Unavailable [phone] Heladio Willoughby MD Primary Care Provider [phone] Heladio Willoughby MD Unavailable Alissa Perez PA-C Unavailable [phone] Lakshmi Wilhelm-C Unavailable [phone] Encounter Details Date Type Department Care Team (Late st Contact Info) Description 11/07/2021 [facility] Clinic [address] [address] Analisa Palacio, OTILIO Social History [...] documented as of this encounter Care Teams Fuse Cutter Relationship Specialty Start Date End Date Ignacia Duran MD PCP - General Pediatrics 01/20/20 03/04/23 [place] [address] [place] [address] PCP - General 03/05/23 Carlos Joyner MD 9 [place] [address] Urology 12/09/19 Jadon Murray MD [facility] 2530 [facility] [address] [place] [address] Referring Physician Pediatric Surgery 12/09/19 Maru Villagomez, OTILIO Registered Nurse 12/10/19 Ang Slade MD [address] [place] [address] 394 [place], [place] 009745 Urology 04/24/20 Carlos Joyner MD [address] [place] [address] Assigned Surgical Provider 12/24/20 Annalise Orta PA-C 5[address] [facility] [place] [address] Assigned Cancer Care Provider 05/13/21 11/01/22 Ang Slade MD [address] [place] [address] 715705 Urology 12/18/22 Lakshmi Wilhelm PA-C [address] [place] [address] 613565 Physician Manager Php Urology 02/03/23 [place] [address] [place] [address] Assigned PCP 02/06/23 Alissa Perez PA-C [address] [place] [address] Physician Manager Php Surgery 09/04/23 Lakshmi Wilhelm PA-C [address] [place] [address] Physician Manager Php Urology 09/16/23 documented as of this encounter
--- OUTSIDE RECORDS SUMMARY | 2024-02-05 16:06 | XMS_ITS | Encounter Summary ---
Author Organization [place] Address [address] [place] [address] 51471 Care Team Providers Care Enrobing Machine Feeder Name Role Phone Carlos Joyner MD Unavailable [phone] Jadon Murray MD Unavailable [phone] Maru Villagomez RN Unavailable Unavailable Ignacia Duran MD Primary Care Provider Ang Slade MD Unavailable [phone] Carlos Joyner MD Unavailable [phone] Annalise Orta-C Unavailable Ang Slade MD Unavailable Lakshmi Wilhelm-C Unavailable Heladio Willoughby MD Primary Care Provider Heladio Willoughby MD Unavailable Alissa Perez PA-C Unavailable [phone] Lakshmi Wilhelm-C Unavailable Encounter Details Date Type Department Care Team (Late st Contact Info) Description 12/18/2021 [facility] Urology Clinic [address] [address] Carlos Joyner MD [address] [place] [address] Social History Tobacco Use Types Packs/Day [...] documented as of this encounter Care Teams Enrobing Machine Feeder Relationship Specialty Start Date End Date Ignacia Duran MD PCP - General Pediatrics 01/20/20 03/04/23 [place] [address] [place] [address] PCP - General 03/05/23 Carlos Joyner MD 9 [place], [place] [id number] Urology 12/09/19 Jadon Murray MD [facility] [address] [id number] Referring Physician Pediatric Surgery 12/09/19 Maru Villagomez, RN Registered Nurse 12/10/19 Ang Slade MD [address] [place] [address] [address] [place], [place] [phone] Urology 04/24/20 Carlos Joyner MD [address] [place] [address] 090215 Assigned Surgical Provider 12/24/20 Annalise Orta PA-C [address] [place] [address] Assigned Cancer Care Provider 05/13/21 11/01/22 Ang Slade MD [address] [place] [address] 789425 Urology 12/18/22 Lakshmi Wilhelm PA-C [address] [place] [address] 9[address] Physician Geological Sample Tester Urology 02/03/23 [place] [address] [place] [address] Assigned PCP 02/06/23 Alissa Perez PA-C [address] [place] [address] 858275 Physician Geological Sample Tester Surgery 09/04/23 Lakshmi Wilhelm PA-C [address] [place] [address] 780005 Physician Geological Sample Tester Urology 09/16/23 documented as of this encounter
--- OUTSIDE RECORDS SUMMARY | 2024-02-05 16:06 | XMS_ITS | Encounter Summary ---
Author Organization [place] Address [address] [place] [address] 29326 Care Team Providers Care Hot Metal Crane Operator Name Role Phone Carlos Joyner MD Unavailable [phone] Jadon Murray MD Unavailable [phone] Maru Villagomez RN Unavailable Unavailable Ignacia Duran MD Primary Care Provider Ang Slade MD Unavailable [phone] Carlos Joyner MD Unavailable [phone] Annalise Orta-C Unavailable [phone] Ang Slade MD Unavailable [phone] Lakshmi Wilhelm-C Unavailable [phone] Heladio Willoughby MD Primary Care Provider [phone] Heladio Willoughby MD Unavailable Alissa Perez PA-C Unavailable [phone] Lakshmi Wilhelm-C Unavailable [phone] Encounter Details Date Type Department Care Team (Late st Contact Info) Description 12/05/2021 [facility] Urology Clinic [address] [address] Yancy Seo Social History Tobacco [...] as of this encounter Care Teams Hot Metal Crane Operator Relationship Specialty Start Date End Date Ignacia Duran MD PCP - General Pediatrics 01/20/20 03/04/23 [place] [address] [place] [address] PCP - General 03/05/23 Carlos Joyner MD 9 [place] [address] Urology 12/09/19 Jadon Murray MD [facility] [address] [facility] 550 [place] [address] Referring Physician Pediatric Surgery 12/09/19 Maru Villagomez, OTILIO Registered Nurse 12/10/19 Ang Slade MD [address] [place] [address] 394 [place] [address] Urology 04/24/20 Carlos Joyner MD [address] [place] [address] Assigned Surgical Provider 12/24/20 Annalise Orta PA-C [address] [facility] [place] [address] Assigned Cancer Care Provider 05/13/21 11/01/22 Ang Slade MD [address] [place] [address] 654245 Urology 12/18/22 Lakshmi Wilhelm PA-C [address] [place] [address] 416515 Physician Animal Husbandman Urology 02/03/23 [place] [address] [place] [address] Assigned PCP 02/06/23 Alissa Perez PA-C [address] [place] [address] Physician Animal Husbandman Surgery 09/04/23 Lakshmi Wilhelm PA-C [address] [place] [address] Physician Animal Husbandman Urology 09/16/23 documented as of this encounter
--- OUTSIDE RECORDS SUMMARY | 2024-02-05 16:06 | XMS_ITS | Encounter Summary ---
Author Organization [place] Address [address] [place] [address] 26900 Care Team Providers Care Basin Cleaner Name Role Phone Carlos Joyner MD Unavailable [phone] Jadon Murray MD Unavailable [phone] Maru Villagomez RN Unavailable Unavailable Ignacia Duran MD Primary Care Provider [phone] Ang Slade MD Unavailable [phone] Carlos Jonyer MD Unavailable [phone] Annalise Orta-C Unavailable [phone] Ang Slade MD Unavailable [phone] Lakshmi Wilhelm-C Unavailable [phone] Heladio Willoughby MD Primary Care Provider [phone] Heladio Willoughby MD Unavailable Alissa Perez PA-C Unavailable [phone] Lakshmi Wilhelm-C Unavailable [phone] Encounter Details Date Type Department Care Team (Late st Contact Info) Description 10/02/2021 [facility] U[facility] Clinic [address] [address] Analisa Palacio, OTILIO Social History [...] * Telephone Encounter - Sarika Gonsalez - 10/03/2021 1:34 PM CDT documented in [...] documented as of this encounter Care Teams Basin Cleaner Relationship Specialty Start Date End Date Ignacia Duran MD PCP - General Pediatrics 01/20/20 03/04/23 [place] [address] [place] [address] PCP - General 03/05/23 Carlos Joyner MD 9 [place], [place] 488375 Urology 12/09/19 Jadon Murray MD [facility] 2530 [facility] 550 [place] [address] Referring Physician Pediatric Surgery 12/09/19 Maru Villagomez, RN Registered Nurse 12/10/19 Ang Slade MD [address] [place] [address] 394 [place], [place] 369965 Urology 04/24/20 Carlos Joyner MD [address] [place] [address] 666845 Assigned Surgical Provider 12/24/20 Annalise Orta PA-C 5200 [place] [address] Assigned Cancer Care Provider 05/13/21 11/01/22 Ang Slade MD [address] [place] [address] 892905 Urology 12/18/22 Lakshmi Wilhelm PA-C [address] [place] [address] 326545 Physician Sawdust Machine Operator Urology 02/03/23 [place] [address] [place] [address] Assigned PCP 02/06/23 Alissa Perez PA-C [address] [place] [address] 939255 Physician Sawdust Machine Operator Surgery 09/04/23 Lakshmi Wilhelm PA-C [address] [place] [address] 947105 Physician Sawdust Machine Operator Urology 09/16/23 documented as of this encounter
--- OUTSIDE RECORDS SUMMARY | 2024-02-05 16:06 | XMS_ITS | Encounter Summary ---
Author Organization [place] Address [address] [place] [address] 90656 Care Team Providers Care Commercial Horticulture Instructor Name Role Phone Carlos Joyner MD Unavailable [phone] Jadon Murray MD Unavailable [phone] Maru Villagomez RN Unavailable Unavailable Ignacia Duran MD Primary Care Provider Ang Slade MD Unavailable [phone] Carlos Joyner MD Unavailable [phone] Annalise Orta-C Unavailable Ang Slade MD Unavailable Lakshmi WilhelmC Unavailable Heladio Willoughby MD Primary Care Provider [phone] Heladio Willoughby MD Unavailable Alissa Perez-C Unavailable [phone] Lakshmi Wilhelm PA-C Unavailable Reason for Visit * Reason Onset Date Comments Call Back 06/27/2021 Bladder infectio n Encounter Details Date Type Department Care Team (Late st Contact Info) Description 06/27/2021 Telephone [facility] Urology Clinic [address] 4th [place] [address] Carlos Joyner MD [address] [place] [address] Call Back (Bladder infection) Social History [...] COVID-19? No / Unsure 06/19/2021 11:16 AM ELECTRIC PILE DRIVER OPERATOR documented as of this encounter Miscellaneous Notes * Telephone Encounter - Karen Sheth - 06/27/2021 12:22 PM CST [facility] Call Center Phone Message May a detailed [...] Center ([facility]): uro Travel Screening: Not Applicable TRIC PILE DRIVER OPERATOR documented in this encounter Plan of Treatment Not on file documented as of this encounter Visit Diagnoses Not on filedocumented in this encounter Additional Health Concerns Infection Onset Date Last Indicated Resolved Time MRSA Comment:Added from external infection. Pt has had Staph infections but never MRSA from Care everywhere chart review. Removing MRSA 9.14.06/17/2019 02/06/2023 9:41 AM C DT documented as of this encounter Care Teams Commercial Horticulture Instructor Relationship Specialty Start Date End Date Ignacia Duran MD PCP - General Pediatrics 01/20/20 03/04/23 [place] [address] [facility] [place] [address] PCP - General 03/05/23 Carlos Joyner MD [address] [place] [address] Urology 12/09/19 Jadon Murray MD [facility] [address] [facility] 550 [place] [address] Referring Physician Pediatric Surgery 12/09/19 Maru Villagomez, RN Registered Nurse 12/10/19 Ang Slade MD [address] [place] [address] Urology 04/24/20 Carlos Joyner MD [address] [place] [address] Assigned Surgical Provider 12/24/20 Annalise Orta PA-C 5200 [place] [address] Assigned Cancer Care Provider 05/13/21 11/01/22 Ang Slade MD [address] [place] [address] Urology 12/18/22 Lakshmi Wilhelm PA-C [address] [place] [address] Physician Cardiac Monitor Technician Urology 02/03/23 [place] [address] [place] [address] Assigned PCP 02/06/23 Alissa Perez PA-C [address] [place] [address] Physician Cardiac Monitor Technician Surgery 09/04/23 Lakshmi Wilhelm PA-C 909 [place] [address] Physician Cardiac Monitor Technician Urology 09/16/23 documented as of this encounter
--- OUTSIDE RECORDS SUMMARY | 2024-02-05 16:06 | XMS_ITS | Encounter Summary ---
Author Organization [place] Address [address] [place] [address] 62467 Care Team Providers Care Programming Coordinator Name Role Phone Carlos Joyner MD Unavailable [phone] Jadon Murray MD Unavailable [phone] Maru Villagomez RN Unavailable Unavailable Ignacia Duran MD Primary Care Provider [phone] Carlos Joyner MD Unavailable +[phone] Ang Slade MD Unavailable [phone] Ang Slade MD Unavailable [phone] Carlos Joyner MD Unavailable +[phone] Annalise Orta-C Unavailable [phone] Ang Slade MD Unavailable [phone] Lakshmi Wilhelm-C Unavailable [phone] Heladio Willoughby MD Primary Care Provider [phone] Heladio Willoughby MD Unavailable Alissa Perez-C Unavailable [phone] Lakshmi Wilhelm-C Unavailable [phone] Reason for Visit * Reason Onset Date Comments Call Back 08/01/2020 Miscommunication between urinary results Encounter Details Date Type Department Care Team (Late st Contact Info) Description 08/01/2020 [facility] Urology Clinic [address] 4th [place] [address] Agn Slade MD 420 [facility] 394 [place] [address] Call Back (Miscommunication between urinary results) Social [...] COVID-19? 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 Reports that there is some miscommunication that she wants to clarify. Please call back. 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 documented in this encounter Plan of Treatment [...] documented as of this encounter Care Teams Programming Coordinator Relationship Specialty Start Date End Date Ignacia Duran MD PCP - General Pediatrics 01/20/20 03/04/23 [place] [address] [place] [address] PCP - General 03/05/23 Carlos Joyner MD [address] [place] [address] Urology 12/09/19 Jadon Murray MD [facility] [address] [address] Referring Physician Pediatric Surgery 12/09/19 Maru Villagomez, RN Registered Nurse 12/10/19 Carlos Joyner MD [address] [place] [address] Assigned Surgical Provider 03/17/20 08/12/20 Ang Slade MD 420 [facility] 394 [place], [place] 732485 Urology 04/24/20 Ang Slade MD [address] [facility] [address] [place] [address] Assigned Surgical Provider 08/13/20 12/23/20 Carlos Joyner MD [address] [place] [address] Assigned Surgical Provider 12/24/20 Annalise Orta PA-C 5200 [place] [address] Assigned Cancer Care Provider 05/13/21 11/01/22 Ang Slade MD [address] [place] [address] 889975 Urology 12/18/22 Lakshmi Wilhelm PA-C [address] [place] [address] 533965 Physician Civil Defense Director Urology 02/03/23 [place] [address] [place] [address] Assigned PCP 02/06/23 Alissa Perez PA-C [address] [place] [address] 339635 Physician Civil Defense Director Surgery 09/04/23 Lakshmi Wilhelm PA-C [address] [place] [address] Physician Civil Defense Director Urology 09/16/23 documented as of this encounter
--- OUTSIDE RECORDS SUMMARY | 2024-02-05 16:06 | XMS_ITS | Encounter Summary ---
Author Organization [place] Address [address] [place] [address] 28338 Care Team Providers Care Penology Teacher Name Role Phone Carlos Joyner MD Unavailable [phone] Jadon Murray MD Unavailable [phone] Maru Villagomez RN Unavailable Unavailable Ignacia Duran MD Primary Care Provider [phone] Ang Slade MD Unavailable +[phone] Carlos Joyner MD Unavailable +[phone] Ang Slade MD Unavailable [phone] Lakshmi Wilhelm-C Unavailable [phone] Heladio Willoughby MD Primary Care Provider [phone] Heladio Willoughby MD Unavailable Alissa Perez-C Unavailable [phone] Lakshmi WilhelmC Unavailable [phone] Encounter Details Date Type Department Care Team (Late st Contact Info) Description 01/06/2023 [facility] [place] [address] [facility] 200 [place] [address] Lisette Mariee Social History Tobacco [...] documented as of this encounter Care Teams Penology Teacher Relationship Specialty Start Date End Date Ignacia Duran MD PCP - General Pediatrics 01/20/20 03/04/23 [place] [address] [place] [address] PCP - General 03/05/23 Carlos Joyner MD [address] [place] [address] 430305 Urology 12/09/19 Jadon Murray MD [facility] 2530 [facility] 550 [place] [address] Referring Physician Pediatric Surgery 12/09/19 Maru Villagomez, OTILIO Registered Nurse 12/10/19 Ang Slade MD [address] [place] [address] 394 [place], [place] 093535 Urology 04/24/20 Carlos Joyner MD [address] [place] [address] Assigned Surgical Provider 12/24/20 Ang Slade MD [address] [place] [address] Urology 12/18/22 Lakshmi Wilhelm PA-C [address] [place] [address] Physician Editor Urology 02/03/23 [place] [address] [place] [address] Assigned PCP 02/06/23 Alissa Perez PA-C [address] [place] [address] 339815 Physician Editor Surgery 09/04/23 Lakshmi Wilhelm PA-C [address] [place] [address] 657545 Physician Editor Urology 09/16/23 documented as of this encounter
[2024-02-05 16:09] LABS: Basophils Absolute Auto 0.02 K/uL (0.00-0.30); Basophils Percent Auto 0.3 % (0.0-3.0); Eosinophils Absolute Auto 0.07 K/uL (0.00-0.50); Hematocrit 44.5 % (33.0-51.0); Hemoglobin* 14.7 gm/dL (12.0-16.0); Immature Granulocytes Abs Auto 0.01 K/uL (0.00-0.30); Immature Granulocytes Pct Auto 0.1 %; Lymphocytes Percent Auto 5.9 % (20-44); Mean Corpuscular HGB Conc 33 gm/dL (32-36); Mean Corpuscular Hemoglobin 30 pg (26-34); Mean Corpuscular Volume 92 fL (80-100); Monocytes Percent Auto 9.7 % (0.0-11.0); Platelet Count* 186 K/uL (140-440); RDW Coefficient of Variation % 12.2 % (11.5-15.5); Red Blood Count 4.86 m/uL (4.00-5.20); White Blood Count* 6.73 K/uL (4.50-11.00)
[2024-02-05 16:12] LABS: Slide Review Reflex No
[2024-02-05] MEDS: ACETAMINOPHEN 500 MG TABLET 1000 MG PO (16:22)
[2024-02-05 16:33] LABS: Appearance Urine Clear (Clear); Bilirubin Urine Negative (Negative); Blood Urine Negative (Negative); Color Urine Yellow (Yellow); Glucose Urine Negative (Negative); Ketones Urine Negative (Negative); Leukocyte Esterase Urine 3+ (Negative); Nitrite Urine Positive (Negative); Protein Urine Negative (Negative); Specific Gravity Urine 1.015 (1.000-1.030); Urobilinogen Urine 0.2 (0.2-1.0); pH Urine 6.5 (5.0-8.5)
[2024-02-05 16:43] LABS: SARS PCR* POSITIVE SARS-CoV-2 (Negative)
[2024-02-05 16:43] LABS: Albumin* 4.4 g/dL (3.3-5.0); Chloride* 101 mmol/L (96-114)
[2024-02-05 16:44] LABS: Potassium* 3.7 mmol/L (3.6-5.1); Sodium* 134 mmol/L (135-149)
[2024-02-05 16:46] LABS: Bilirubin Total* 0.5 mg/dL (0.1-1.5); Creatinine* 0.4 mg/dL (0.5-1.5); Est. Creatinine Clearance* 215.07; Estimated Glomerular Filt Rate 144 ml/min
[2024-02-05 16:47] LABS: Alanine Aminotransferase* 13 U/L (4-35); Alkaline Phosphatase* 80 U/L (40-150); Anion Gap 11 mEq/L (7-15); Aspartate Amino Transferase* 24 U/L (12-35); Blood Urea Nitrogen* 13 mg/dL (5-24); Calcium* 9.2 mg/dL (8.4-10.6); Carbon Dioxide* 22 mmol/L (20-32); Glucose* 91 mg/dL (60-115); Total Protein* 7.4 g/dL (6.0-8.3)
[2024-02-05 16:50] LABS: C Reactive Protein* 1.9 mg/dL (0.5-1.0)
[2024-02-05 16:59] LABS: Bacteria Urine Few; RBC Urine 0-2 (0-2)
[2024-02-05] MEDS: cefTRIAXone 1 GM VIAL IM (19:06)
[2024-02-05] MEDS: LIDOCAINE 1% 5 ml (pf) 5 ML VIAL 2.1 ML IM (19:09)
--- NOTE | 2024-02-08 12:14 | ED_ITS ---
HPI - General Adult General Date Seen: 02/05/24 Chief complaint: Abdominal Pain Stated complaint: UTI symptoms Time Seen by Provider: 02/05/24 15:13 Source: patient and RN notes reviewed Mode of arrival: ambulatory Limitations: no limitations History of Present Illness HPI narrative: This is an addendum to the patient's ER note from 02/05/2024. Was seen in the ER on 02/04 for fever, weakness, tachycardia. Was diagnosed with coronavirus and prescribed Paxlovid. Also diagnosed with UTI. Unable to get IV while in the ER that day so received IM Rocephin and was discharged with a prescription for cephalexin to treat her urine. Patient's urine culture came back today with 2 different pathogens. She is growing > 100,000 CFU E coli which is pansensitive, including sensitive to cephalexin. She is also growing 50-60,000 CFU Enterobacter cloacae . This is resistant to 1st generation cephalosporins. It would have been sensitive to the Rocephin. That is also sensitive to Bactrim and fluoroquinolones. We will need to add additional antibiotic to cover the Enterobacter. Patient has allergies to vanco, ibuprofen, Lasix. Would prescribe Bactrim DS (or equivalent oral liquid dose if patient not able to take pills). We contacted the patient's primary contact. It is a phone line for a [employer]. They did not answer the phone. For call went straight to their voicemail. I left a message instructed them to call back today on Friday. We also contacted the patient's 2nd contact. The phone number listed for Alecia is not accurate. Phone call was answered (twice) by a different gentleman who is not associated with this patient. Apparently the phone number recently changed possession. Her listed address is in [place]. We Google search to this and a turns out that this is the address for her [employer], not the address of her care home. I do not have any good way to contact her or her care providers today. Awaiting for her guardian to call back and then we will be able to get her started on the additional antibiotic. At 12:22 p.m. her [employer] called back. I was also able to contact her primary guardian, Tanisha. We will send in a prescription for Bactrim DS to the [facility] here in [place]. The patient's care provider will be able to pick it up today and start the patient on the antibiotic today. Related Data Home Medications ?Medication ?Instructions ?Recorded ?Confirmed oxybutynin chloride 5 mg tablet 5 mg PO BID 07/21/22 10/31/23 indapamide 1.25 mg tablet 1.25 mg PO QAM 10/31/23 10/31/23 potassium chloride 10 mEq 10 meq PO BID 10/31/23 10/31/23 tablet,extended release(part/cryst) Previous Rx's ?Medication ?Instructions ?Recorded cephalexin 500 mg tablet 500 mg PO TID #21 tabs 02/05/24 nirmatrelvir 300 mg (150 mg See Rx Instructions PO .COMPLEX 02/05/24 x2)-ritonavir 100 mg tablet,dose #30 ea pack (Paxlovid) sulfamethoxazole 800 1 tab PO BID #14 tabs 02/08/24 mg-trimethoprim 160 mg tablet (Bactrim DS) Allergies Allergy/AdvReac Type Severity Reaction Status Date / Time ibuprofen Allergy Intermediate 1 Kidney Verified 10/31/23 19:52 vancomycin Allergy Intermediate Swapnil Verified 10/31/23 19:52 Syndrome latex Allergy Mild Rash Verified 10/31/23 19:52 [facility] Medical History (Updated 02/05/24 @ 20:56 by Jalyn Johnston MD) Spina bifida ?Q05.9 - Spina bifida, unspecified (ICD-10) Social History Smoking Status: Never smoker Do you use any of these nicotine containing products: None How often do you have a drink containing alcohol: never AUDIT-C Alcohol total score: 0 Non-prescribed substance use: denies use service: No Course Vital Signs Vital signs: Initial Vital Signs Temperature 102.5 F H 02/05/24 14:52 Temperature Source Temporal Artery Scan 02/05/24 14:52 Pulse Rate 132 H 02/05/24 14:52 Pulse Rhythm Regular 02/05/24 14:52 Pulse Strength 3+ Normal 02/05/24 14:52 Respiratory Rate 18 02/05/24 14:52 Blood Pressure 124/79 02/05/24 14:52 Blood Pressure Mean 94 02/05/24 14:52 Blood Pressure Position Sitting 02/05/24 14:52 Pulse Oximetry 96 02/05/24 14:52 Oxygen Delivery Method Room Air 02/05/24 14:52 Vital Signs Temperature 102.5 F H 02/05/24 14:52 Pulse Rate 132 H 02/05/24 14:52 Respiratory Rate 18 02/05/24 14:52 Blood Pressure 124/79 02/05/24 14:52 Pulse Oximetry 96 02/05/24 14:52 Oxygen Delivery Method Room Air 02/05/24 14:52 Temperature 102.5 F H 02/05/24 14:52 Pulse Rate 97 02/05/24 21:02 Respiratory Rate 18 02/05/24 14:52 Blood Pressure 98/74 02/05/24 21:02 Pulse Oximetry 97 02/05/24 21:02 Oxygen Delivery Method Room Air 02/05/24 14:52 Medications Administered Medications: Discontinued Medications Generic Name Dose Route Start Last Admin Trade Name Freq PRN Reason Stop Dose Admin Acetaminophen 1,000 mg 02/05/24 15:18 02/05/24 16:22 Acetaminophen 500 Mg Tablet PO 02/05/24 15:19 1,000 mg ONCE ONE Administration Ceftriaxone Sodium 1 gm 02/05/24 18:36 02/05/24 19:06 Ceftriaxone 1 Gm Vial IM 02/05/24 18:37 1 gm ONCE ONE Administration Sodium Chloride 1,000 mls @ 1,000 mls/hr 02/05/24 15:20 02/05/24 16:25 0.9 % Sodium Chloride 1000 Ml IV 02/05/24 16:19 Infused .Q1H VAIBHAV Infusion Ceftriaxone Sodium 1 gm/ 100 mls @ 200 mls/hr 02/05/24 17:03 02/05/24 18:38 Sodium Chloride IVPB 02/05/24 17:04 Not Given ONCE ONE Lidocaine HCl 2.1 ml 02/05/24 18:36 02/05/24 19:09 Lidocaine 1% 5 Ml (Pf) 5 Ml Vial IM 2.1 ml DIRECTED PRN Administration Pain Medical Decision Making Lab Data Labs: Lab Results 02/05/24 02/05/24 02/05/24 Range/Units 16:03 16:08 16:15 WBC 6.73 (4.50-11.00) K/uL RBC 4.86 (4.00-5.20) m/uL Hgb 14.7 (12.0-16.0) gm/dL Hct 44.5 (33.0-51.0) % MCV 92 (80-100) fL MCH 30 (26-34) pg MCHC 33 (32-36) gm/dL RDW Coeff of Kimber 12.2 (11.5-15.5) % Plt Count 186 (140-440) K/uL Neut % (Auto) 83.0 H (42.0-72.0) % Lymph % (Auto) 5.9 L (20-44) % [place] % (Auto) 9.7 (0.0-11.0) % Eos % (Auto) 1.0 (0.0-7.0) % Baso % (Auto) 0.3 (0.0-3.0) % Neut # (Auto) 5.60 (1.7-7.0) K/uL Lymph # (Auto) 0.40 L (0.90-2.90) K/uL [place] # (Auto) 0.70 (0.00-0.90) K/UL Eos # (Auto) 0.07 (0.00-0.50) K/uL Baso # (Auto) 0.02 (0.00-0.30) K/uL Abs Immat Gran (auto) 0.01 (0.00-0.30) K/uL Imm/Tot Granulo (auto) 0.1 % Sodium 134 L (135-149) mmol/L Potassium 3.7 (3.6-5.1) mmol/L Chloride 101 (96-114) mmol/L Carbon Dioxide 22 (20-32) mmol/L Anion Gap 11 (7-15) mEq/L BUN 13 (5-24) mg/dL Creatinine 0.4 L (0.5-1.5) mg/dL Estimated Creat Clear 215.07 Estimated GFR 144 ml/min Glucose 91 (60-115) mg/dL Lactate 0.7 (0.5-1.9) mmol/L Calcium 9.2 (8.4-10.6) mg/dL Total Bilirubin 0.5 (0.1-1.5) mg/dL AST 24 (12-35) U/L ALT 13 (4-35) U/L Alkaline Phosphatase 80 (40-150) U/L C-Reactive Protein 1.9 H (0.5-1.0) mg/dL Total Protein 7.4 (6.0-8.3) g/dL Albumin 4.4 (3.3-5.0) g/dL Urine Color Yellow (Yellow) Urine Appearance Clear (Clear) Urine pH 6.5 (5.0-8.5) Ur Specific [place] 1.015 (1.000-1.030) Urine Protein Negative (Negative) Urine Glucose (UA) Negative (Negative) Urine Ketones Negative (Negative) Urine Blood Negative (Negative) Urine Nitrite Positive A (Negative) Urine Bilirubin Negative (Negative) Urine Urobilinogen 0.2 (0.2-1.0) Ur Leukocyte Esterase 3+ A (Negative) Urine RBC 0-2 (0-2) Urine WBC 2-5 (0-5) Ur Squamous Epith Cells None (None-Few) Urine Bacteria Few A (None) SARS-CoV-2 (PCR) POSITIVE SARS-CoV-2 A (Negative) Discharge Plan Discharge Clinical Impression: COVID-19 Urinary tract infection Qualifiers: Urinary tract infection type: acute cystitis Hematuria presence: without hematuria Qualified Code(s): N30.00 - Acute cystitis without hematuria Patient Disposition: Home, Self-Care Condition: Improved Instructions: COVID-19 (Coronavirus Disease 2019) (ED) Additional Instructions: Next dose of antibiotics due tomorrow morning, try to get 3 doses in tomorrow and take as prescribed. We will contact you if the urine does grow anything that should require an antibiotic change. For your COVID, start the Paxlovid as soon as possible tomorrow, try to get 2 doses of this medicine in. This may have interactions with your indapamide and oxybutynin. You may need to take these 2 medicines every other day or potentially hold them while you complete the Paxlovid. The interaction with Paxlovid and indapamide can be to lower your blood pressure too much. I would recommend following your blood pressure and it is significantly lower while on both of these medicines, hold the indapamide. There can be increased anticholinergic affects of the oxybutynin as in interaction, these can include such things as hallucinations come agitation, confusion, sleepiness. This very well may not happen at all but monitor for this. Review handouts. If you are not improving, feel you are worsening at any point to have concerns about these illnesses and her health, please seek re- evaluation. Use Tylenol 1000 mg 3 times a day for fever management. Activity Level: No Restrictions Discharge Diet: Regular Prescriptions: New Paxlovid 300 mg (150 mg x 2)-100 mg tablets,dose pack See Rx Instructions .ROUTE .COMPLEX Qty: 30 0RF Rx Instructions: take TWO 150 mg tablets of nirmatrelvir with ONE 100 mg tablet of ritonavir twice daily for 5 days cephalexin 500 mg tablet 500 mg PO TID Qty: 21 0RF sulfamethoxazole-trimethoprim [Bactrim DS] 800-160 mg tablet 1 tab PO BID Qty: 14 0RF No Action oxybutynin chloride 5 mg tablet 5 mg PO BID Patient Comments: TAKE ONE TABLET BY MOUTH TWICE DAILY indapamide 1.25 mg tablet 1.25 mg PO QAM potassium chloride 10 mEq tablet,ER particles/crystals 10 meq PO BID Follow Up/Referrals: Ignacia Duran MD [Primary Care Provider] - Stand Alone Forms: [employer] Work[employer] Management Info Instructions
== END 2024-02-05 21:24 | disposition home or self-care (01) ==
PROVIDERS: Emergency Provider Family Medicine; PCP Pediatrics
DX: U07.1 COVID-19 (principal); N39.0 Urinary tract infection, site not specified
CPT/HCPCS: 51702; 36415; 51701; 74176; 80053; 81001; 83605; 85025; 86140; 87040; 87086; 87186; 87635; 94761; 96372; 96374; 99281; 99284; 99285; A9270; J0696; J7030

== ENCOUNTER 2024-04-29 00:45 | Outpatient (CLI) | payer MEDICARE, BC, MEDICAID, SELFPAY ==
--- OUTSIDE RECORDS SUMMARY | 2024-04-30 03:00 | XMS_ITS | Clinical Summary ---
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 UTI (urinary tract infection) 04/24/2011 Paraplegia 02/21/2009 Spina bifida of dorsal region 02/21/2009 Resolved Problems Problem Noted Date Diagnosed Date Resolved Date Adjustment disorder with mix ed disturbance of emotions and conduct 07/04/2011 11/23/2018 Immunizations Name Administration Dates Next Due DTaP 01/18/2008,05/06/2005 [id number] (Pediarix) 05/27/2003,03/21/2003,0 2002 HIB PRP-T (ActHIB,Hiberix) 05/27/2003,03/21/2003 [...] Comments Blood Pressure 123/80 07/12/2021 1:30 PM TECHNOLOGY EDUCATION INSTRUCTOR Pulse 98 07/12/2021 1:30 PM TECHNOLOGY EDUCATION INSTRUCTOR Temperature 36.9 C (98.5 F) 07/12/2021 1:30 PM TECHNOLOGY EDUCATION INSTRUCTOR Respiratory Rate 18 07/03/2015 5:27 PM TECHNOLOGY EDUCATION INSTRUCTOR Oxygen Saturation 98% 07/12/2021 1:30 PM TECHNOLOGY EDUCATION INSTRUCTOR Inhaled Oxygen Concentration - - Weight 61.2 kg (135 lb) 07/03/2015 5:27 PM TECHNOLOGY EDUCATION INSTRUCTOR Height - - Body Mass Index - [...] Documents on File Type Date Recorded Patient Freight Claim Investigator Expl anation Power of Chute Builder 06/24/2023 1:00 PM Care Teams Licensed Architect Relationship Specialty Start Date End Date Ignacia Duran MD PCP - General Pediatric 10/07/19
--- OUTSIDE RECORDS SUMMARY | 2024-04-30 03:00 | XMS_ITS | Patient Health Record ---
Author Organization [facility] Address [facility] [address] [address] [place] [address] Care Team Providers Care Insulation Cupola Charger Name Role Phone Ignacia Duran MD Primary Care Provider [phone] ADOLFO PAZ MD Reason For Referral No Information Medications Medication SIG (Take, Route, Fr equency, Duration) Notes Start Date End Date Status Gentamicin Sulfate 40 MG/ML 30ML QHS Intravesically BID for 30 days 12/30/2019 Active Problems Problem Type SNOMED Code ICD Code Onset Dates Problem Status W/U Status Risk Notes Problem 557833640 Neurogenic bladd er (N31.9) Active confirmed Problem Hydrocephalus (527328912) Hydrocephalus (G91.9) Active confirmed Problem 30837213 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 Problem 236232963 Acute pyonephros is (N13.6) Active confirmed Problem 513664681 Obesity (BMI 30-39.9) (E66.9) Active confirmed Problem 86733219 Spina bifida of lumbosacral region with 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) Active confirmed Problem 20545388 Acute pyelonephritis (N10) Active confirmed Problem Sepsis (06105666) Sepsis, due to unspecified organism (A41.9) Active confirmed Problem 76236603 Bilateral nephrolithiasis (N20.0) Active confirmed Plan Of Treatment Pending Test Test Name Order Date UDS- Flow, ru, EMG, CMG w/UA/UC and mario tion 12/02/2019 Insurance Providers Payer Name Payer Address Payer Phone Subscriber Number Group Number Insured Name Patient Relationship to Insured Coverage Start Date Coverage End Date [facility] [address] [address] [place] [address] [phone] [id number] Fe Escudero Child - Insured has Financial Responsibility [facility] [address] [address] [place] [address] [id number] Laina Escudero Self - patient is the insured
--- OUTSIDE RECORDS SUMMARY | 2024-04-30 03:01 | XMS_ITS | Encounter Summary ---
Author Organization [facility] Address [address] [place] [address] Care Team Providers Care Organic Preparation Technician Name Role Phone Carlos Joyner MD Unavailable [phone] Jadon Murray MD Unavailable [phone] Maru Villagomez RN Unavailable Unavailable Ang Slade MD Unavailable [phone] Carlos Joyner MD Unavailable [phone] Ang Slade MD Unavailable [phone] Lakshmi Wilhelm-C Unavailable [phone] Heladio Willoughby MD Primary Care Provider [phone] Heladio Willoughby MD Unavailable Alissa Perez PA-C Unavailable [phone] Lakshmi Wilhelm-C Unavailable [phone] Aidee Valero PA-C Unavailable [phone] Encounter Details Date Type Department Care Team [...] Care Team (Late st Contact Info) Description 06/15/2024 9:30 AM IT TECHNICAL ARCHITECT Office Visit [address] [phone] Xu Prince MD [address] [place] [address] [phone] 06/15/2024 2:30 PM IT TECHNICAL ARCHITECT Office Visit [facility] [address] [place] [address] Andreea Cruz PA-C [address] [place] [address] 07/21/2024 4:00 PM IT TECHNICAL ARCHITECT Office Visit [facility] [address] [place] [address] [place] [address] [place] [address] documented as of this encounter Visit Diagnoses Not on filedocumented in this encounter Care Teams Organic Preparation Technician Relationship Specialty [place] [address] [place] [address] PCP - General 03/05/23 Carlos Joyner MD [address] [place] [address] 376505 Urology 12/09/19 Jadon Murray MD [facility] [address] [phone] Referring Physician Pediatric Surgery 12/09/19 Maru Villagomez, RN Registered Nurse 12/10/19 Ang Slade MD [address] [place] [address] 087335 Urology 04/24/20 Carlos Joyner MD [address] [place] [address] [id number] Assigned Surgical Provider 12/24/20 Ang Slade MD [address] [place] [address] Urology 12/18/22 Lakshmi Wilhelm PA-C [address] [place] [address] 684665 Physician Test Clerk Urology 02/03/23 [place] [address] [place] [address] Assigned PCP 02/06/23 Alissa Perez PA-C [address] [place] [address] Physician Test Clerk Surgery 09/04/23 Lakshmi Wilhelm PA-C [address] [place] [address] Physician Test Clerk Urology 09/16/23 Aidee Valero PA-C [address] [place] [address] Assigned Musculoskeletal Provider 04/17/24 Tanisha Marlow [address] [facility] [address] 03/30/24 documented as of this encounter
--- OUTSIDE RECORDS SUMMARY | 2024-04-30 03:01 | XMS_ITS | Encounter Summary ---
Author Organization [facility] Address [address] [place] [address] Care Team Providers Care Strip Deburrer Name Role Phone Carlos Joyner MD Unavailable [phone] Jadon Murray MD Unavailable [phone] Maru Villagomez RN Unavailable Unavailable Ang Slade MD Unavailable [phone] Carlos Joyner MD Unavailable [phone] Ang Slade MD Unavailable [phone] Lakshmi Wilhelm-C Unavailable [phone] Heladio Willoughby MD Primary Care Provider [phone] Heladio Willoughby MD Unavailable Alissa Perez PA-C Unavailable [phone] Lakshmi Wilhelm-C Unavailable [phone] Aidee Valero PA-C Unavailable [phone] Encounter Details Date Type Department Care Team (Late st Contact Info) Description 04/21/2024 11:45 AM GROCERY CASHIER Lab [facility] [address] [place] [phone] Recurrent UTI Social History Tobacco Use [...] st Contact Info) Description 06/15/2024 9:30 AM GROCERY CASHIER Office Visit [address] [address] Xu Prince MD [address] [place] [address] [phone] 06/15/2024 2:30 PM GROCERY CASHIER Office Visit [facility] [address] [place] [phone] Andreea Cruz PA-C [address] [place], [place] [phone] 07/21/2024 4:00 PM GROCERY CASHIER [facility] [address] [facility] [place] [phone] [place] [address] [place] [address] documented as of this encounter Procedures Procedure Name Priority Date/Time Associated Diagnosis Comments ROUTINE UA WITH MICROSCOPIC Routine 04/21/2024 10:30 AM GROCERY CASHIER Recurrent UTI URINE MICROSCOPIC EXAM Routine 04/21/2024 10:30 AM GROCERY CASHIER Recurrent UTI URINE CULTURE Routine 04/21/2024 10:30 AM GROCERY CASHIER Recurrent UTI documented in this encounter Results * (ABNORMAL) Urine Microscopic Exam (04/21/2024 10:30 AM GROCERY CASHIER) Bacteria Urine Moderate( A) None Seen /HPF LINDA 04/21/2024 11:48 AM GROCERY CASHIER [facility] RBC Urine 2-5(A) 0-2 /HPF /HPF LINDA 04/21/2024 11:48 AM GROCERY CASHIER [facility] WBC Urine 25-50(A) 0-5 /HPF /HPF LINDA 04/21/2024 11:48 AM GROCERY CASHIER [facility] Squamous Epithelials Urine Few(A) None Seen /LPF LINDA 04/21/2024 11:48 AM GROCERY CASHIER [facility] Urine URINE SPECIMEN OBTAINED BY CLEAN CATCH PROCEDURE / Unknown Non-blood Collection / Unknown 04/21/2024 10:30 AM GROCERY CASHIER 04/21/2024 11:40 AM GROCERY CASHIER us Carlos Joyner MD LAB - URINE ORDERABLES Fin al Result LABORATORY [facility] [address] [facility] Lab (no room number, 1st floor of clinic) [place] [address], [facility] * (ABNORMAL) UA with Microscopic (04/21/2024 10:30 AM GROCERY CASHIER) Color Urine Yellow Colorless, Straw, Light Yellow, Yellow 04/21/2024 11:45 AM GROCERY CASHIER LABORATORY Appearance Urine Clear Clear 04/21/20 11:45 AM GROCERY CASHIER LABORATORY Glucose Urine Negative Negative mg/dL 04/21/2024 11:45 AM GROCERY CASHIER LABORATORY Bilirubin Urine Negative Negative 11:45 AM GROCERY CASHIER LABORATORY Ketones Urine Negative Negative mg/dL 04/21/2024 11:45 AM GROCERY CASHIER LABORATORY Specific [place] Urine 1.020 1.003 - 1.035 04/21/2024 11:45 AM GROCERY CASHIER LABORATORY Blood Urine Negative Negative 04/21/2024 11:45 AM GROCERY CASHIER LABORATORY pH Urine 6.5 5.0 - 7.0 04/21/2024 11:45 AM GROCERY CASHIER LABORATORY Protein Albumin Urine Negative Negative mg/dL 04/21/2024 11:45 AM GROCERY CASHIER LABORATORY Urobilinogen Urine 0.2 0.2, 1.0 E.U./dL 04/21/2024 11:45 AM GROCERY CASHIER LABORATORY Nitrite Urine Positive(A) Negative 04/21/2024 11:45 AM GROCERY CASHIER LABORATORY Leukocyte Esterase Urine Large(A) Negative 04/21/2024 11:45 AM GROCERY CASHIER LABORATORY Urine URINE SPECIMEN OBTAINED BY CLEAN CATCH PROCEDURE / Unknown Non-blood Collection / Unknown 04/21/2024 10:30 AM GROCERY CASHIER 04/21/2024 11:40 AM GROCERY CASHIER us Carlos Joyner MD LAB - URINE ORDERABLES Fin al Result LABORATORY [facility] [address] [facility] (no room number, 1st floor of clinic) [place] [address] * (ABNORMAL) Urine Culture (04/21/2024 10:30 AM GROCERY CASHIER) Culture >100,000 CFU/mL Escherichia coli(A) LINDA 04/23/2024 8:04 PM GROCERY CASHIER [facility] Culture >100,000 CFU/mL Enterobacter cloacae complex(A) 04/23/2024 8:04 PM GROCERY CASHIER [facility] Urine MID-STREAM URINE SPECIMEN / Unknown Non-blood Collection / Unknown 04/21/2024 10:30 AM GROCERY CASHIER 04/21/2024 11:40 AM GROCERY CASHIER Narrative Organism Antibiotic Method Susceptibility Escherichia coli [...] ORDERA BLES Final Result [facility] Inf. Diseases Diag. Lab [address] [facility], [address] [place] [address], [facility] documented in this encounter Visit Diagnoses Diagnosis Recurrent UTI Urinary tract infection, site not specified documented in this encounter Care Teams Strip Deburrer Relationship Specialty Start [place] [address] [place] [address] PCP - General 03/05/23 Carlos Joyner MD [address] [place] [address] 188505 Urology 12/09/19 Jadon Murray MD [facility] [address] [facility] [address] [place], [place] [phone] Referring Physician Pediatric Surgery 12/09/19 Maru Villagomez, RN Registered Nurse 12/10/19 Ang Slade MD [address] [place] [address] [address] [place], [place] [phone] Urology 04/24/20 Carlos Joyner MD [address] [place] [address] 777455 Assigned Surgical Provider 12/24/20 Ang Slade MD [address] [place] [address] 457605 Urology 12/18/22 Lakshmi Wilhelm PA-C [address] [place] [address] [phone] Physician Stove Cleaner Urology 02/03/23 [place] [address] [place] [address] Assigned PCP 02/06/23 Alissa Perez PA-C [address] [place] [address] Physician Stove Cleaner Surgery 09/04/23 Lakshmi Wilhelm PA-C [address] [place] [address] Physician Stove Cleaner Urology 09/16/23 Aidee Valero PA-C [address] [place] [address] Assigned Musculoskeletal Provider 04/17/24 Tanisha Marlow [address] [facility] [address] 03/30/24 documented as of this encounter
--- OUTSIDE RECORDS SUMMARY | 2024-04-30 03:01 | XMS_ITS | Clinical Summary ---
Author Organization [facility] Address [address] [place] [address] Care Team Providers Care Funeral Location Manager Name Role Phone Carlos Joyner MD Unavailable [phone] Jadon Murray MD Unavailable [phone] Maru Villagomez RN Unavailable Unavailable Ang Slade MD Unavailable Carlos Joyner MD Unavailable [phone] Ang Slade MD Unavailable [phone] Lakshmi Wilhelm-C Unavailable Heladio Willoughby MD Primary Care Provider [phone] Heladio Willoughby MD Unavailable Alissa Perez PA-C Unavailable [phone] Lakshmi Wilhelm-C Unavailable Aidee Valero PA-C Unavailable Allergies Active Allergy Reactions Criticality Noted Date [...] Refill(s), Maintenance, other 03/13/20 Active Wound Dressings ([facility] 2X2) PADSIndications:Pr essure ulcer acquired in formerly [facility] Externally apply 1 each topically daily [...] Acute cystitis 04/04/2019 Ulcer, surgical 06/07/2011 S/P MEDICINE WORKER shunt 04/29/2011 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 (03/14/2020): Vertebra Absence Congenital Kyphosis (acquired) (postural) 08/04/2008 Overview (03/14/2020): Kyphosis Neurogenic bladder 07/22/2003 Overview (03/05/2023): LW Onset: [id number] ; Paralysis Bladder Neurogenic bowel 07/22/2003 Overview (03/14/2020): LW Onset: 52Uwk12 Paraplegia 07/22/2003 Overview (04/18/2023): 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 07/22/2003 Overview (03/14/2020): LW Onset: 91Ifu21 ; Short Stature 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/22/2003 Overview (04/16/2023): LW Modifier: shunted LW Onset: ; Spina Bifida Lumbar w Hydrocephalus Resolved Problems Problem Noted Date Diagnosed Date Resolved Date Acute kidney failure, unspecified 02/10/2020 03/05/2023 Encounters Date Type Department Care Team Description 04/28/2024 Travel 04/26/2024 Orders Only [facility] [address] [phone] Carlos Joyner MD Recurrent UTI (Primary Dx) 04/26/2024 MyC Medical Advice [facility] [address] [phone] Rosita Velasco RN 04/21/2024 11:45 AM HEAT AND FROST INSULATOR HELPER Lab [facility] [address] [place] [address] Recurrent UTI 04/21/2024 Travel 04/21/2024 Orders Only [facility] [address] [phone] Carlos Joyner MD Recurrent UTI (Primary Dx) 04/21/2024 Telephone [facility] [address] [phone] Carlos Joyner MD Call Back (Pt still having UTI Symptoms. They are wanting to see about getting a new antibiotic. Please call Nurse manager mining at [phone]. Please call Yamini. As they would like to get something done prior to the holiday. Thanks ) 04/21/2024 Telephone [facility] [address] [place] [address] Heladio Willoughby MD 04/13/2024 Telephone [facility] [address] [place] [address] Heladio Willoughby MD Orders 04/13/2024 Documentation Only [facility] [address] [phone] Estrella Martinez NP Forms; Orders (Catheter, lubrication, gloves) 04/12/[address] [facility] Information Management [address] [place] [address] [address] [place] [address] Scan, Non-Provider 04/01/2024 MyC Medical Advice [facility] [address] [phone] Aidee Valero PA-C 03/30/2024 2:00 PM HEAT AND FROST INSULATOR HELPER Office Visit [facility] [address] [phone] Aidee Valero PA-C History of spinal fusion (Primary Dx); Thoracic spina bifida, unspecified hydrocephalus presence (H) 03/30/2024 1:40 PM HEAT AND FROST INSULATOR HELPER Ancillary Procedure [facility] Xray [address] [phone] Aidee Valero PA-C Thoracic spina bifida, unspecified hydrocephalus presence (H) 03/30/2024 Telephone [facility] [address] [phone] Aidee Valero PA-C 03/30/2024 Travel 03/30/2024 PRE VISIT [facility] [address] [phone] Aidee Valero PA-C Previsit 03/25/2024 Travel 03/23/2024 Orders Only [facility] [address] [phone] Aidee Valero PA-C Thoracic spina bifida, unspecified hydrocephalus presence (H) (Primary Dx) 03/09/2024 Telephone [facility] [address] [phone] Aidee Valero PA-C 03/09/2024 Telephone [facility] [address] [phone] Unknown, MD Ronak Appointment 03/05/2024 10:45 AM CDT Lab [facility] [address] [place] [address] Kidney stone 03/05/2024 Travel 03/02/2024 Orders Only [facility] [address] [phone] Carlos Joyner MD Kidney stone (Primary Dx) 03/02/2024 MyC Medical Advice [facility] [address] [phone] Carlos Joyner MD Recurrent UTI (Primary Dx) 02/14/2024 Refill [facility] [address] [phone] Carlos Joyner MD Medication Refill (Potassium Chloride Marcie ER Oral Tablet Extended Release 10 MEQ) 02/13/2024 MyC Medical Advice [facility] [address] [phone] Carlos Joyner MD 02/06/2024 MyC Medical Advice [address] [phone] Heladio Willoughby MD Forms ([facility] Education Syrup Mixer... from Last 3 Months Immunizations Name Administration Dates Next Due DTAP (<7y) 01/18/2008,05/06/2005 DTaP, Unspecified 01/16/2015 DTaP/HepB/IPV 05/27/2003,03/21/2003,2002 Flu, Unspecified 02/26/2016,02/21/2009, 4 Q9w0-33 Novel Flu 03/18/2009 W5t4-13 Novel Flu P-free 03/30/2004,05/27/2003 HEPATITIS A (PEDS [...] in an abandoned building, in an overnight skilled nursing, or couch-surfing.) Yes 04/16/2023 Are you worried [...] 61.2 kg (135 lb) 03/30/2024 2:01 PM HEAT AND FROST INSULATOR HELPER Height 147.3 cm (4' 10) 03/30/2024 2:01 PM HEAT AND FROST INSULATOR HELPER Body Mass Index 28.22 03/30/2024 2:01 PM HEAT AND FROST INSULATOR HELPER Plan of Treatment Upcoming Encounters Date Type Department Care Team (Late st Contact Info) Description 06/15/2024 9:30 AM HEAT AND FROST INSULATOR HELPER Office Visit [facility] [address] [place] [phone] Xu Prince MD [address] [place] [address] 06/15/2024 2:30 PM HEAT AND FROST INSULATOR HELPER Office Visit [facility] [address] [place] [address] nAdreea Cruz, PAEarlC [address] [place], [place] [phone] 07/21/2024 4:00 PM HEAT AND FROST INSULATOR HELPER [facility] [address] [place] [address] [place] [address] [place] [address] Health Maintenance Due Date Last Done Comments [...] this topic Medical Devices Implanted Type Area Family Psychologist Device Identifier Shelf Expiration Date Model / Serial / Lot Stent Ureteral Percuflex Plus [id number] - [id number] Implanted:Qty: 1 on 11/12/2021 by Carlos Joyner MD at [facility] Stent Right: Abdomen tracx [employer] [id number] 12/26/2022 [id number] Ureteral Catheter 5 [place]iqu[place] Implanted:Qty: 1 on 03/31/2023 by Elizabeth Jacobsen MD at [facility] Right: Ureter 02/02/2026 [id number] Description:5 citizen [place] Uretera l catheter used as a stent in right ureter 5 [place]iqu[place] Open Ended Catheter Implanted:Qty: 1 on 03/31/2023 by Elizabeth Jacobsen MD at [facility] Left: Ureter 02/19/2026 [id number] / [id number] Explanted Type Area Family Psychologist Device Identifier Shelf Expiration Date Model / Serial / Lot Stent Ureteral Percuflex Plus [id number] - [id number] Implanted:Qty: 1 on 05/10/2021 by Carlos Joyner MD at [facility] Explanted:Qty: 1 on 08/09/2021 by Jane Gomez MD at [facility] Stent Right: Urethra [employer] 06/14/2022 [id number] / [id number] Description:Ureter Stent Ureteral Percuflex Plus [id number] - [id number] Implanted:Qty: 1 on 05/10/2021 by Carlos Joyner MD at [facility] Explanted:Qty: 1 on 08/09/2021 by Jane Gomez MD at [facility] Stent Left: Urethra [employer] 07/25/2022 [id number] Stent Ureteral Percuflex Plus [id number] - [id number] Implanted:Qty: 1 on 08/09/2021 by Jane Gomez MD at [facility] Explanted:Qty: 1 on 11/12/2021 at [facility] Stent Right: Ureter [employer] 02/29/2024 [id number] Stent Ureteral Percuflex Plus [id number] - [id number] Implanted:Qty: 1 on 08/09/2021 by Jane Gomez MD at [facility] Explanted:Qty: 1 on 11/12/2021 at [facility] Stent Right: Ureter [employer] 02/29/2024 [id number] 5 Fr X 22cm Ureteral Stent Explanted:Qty: 1 on 02/07/2020 by Carlos Joyner MD at [facility] COOK 5 Fr X 22cm Ureteral Stent Explanted:Qty: 1 on 02/07/2020 by Carlos Joyner MD at [facility] COOK Procedures Procedure Name Priority Date/Time Associated Diagnosis Comments URINE CULTURE Routine 04/21/2024 10:30 AM HEAT AND FROST INSULATOR HELPER Recurrent UTI URINE MICROSCOPIC EXAM Routine 04/21/2024 10:30 AM HEAT AND FROST INSULATOR HELPER Recurrent UTI ROUTINE UA WITH MICROSCOPIC Routine 04/21/2024 10:30 AM HEAT AND FROST INSULATOR HELPER Recurrent UTI XR SPINE COMPLETE SCOLIOSIS 2 VIEWS Routine 03/30/2024 1:38 PM HEAT AND FROST INSULATOR HELPER Thoracic spina bifida, unspecified hydrocephalus presence (H) URINE CULTURE Routine 03/05/2024 7:30 AM CDT Kidney stone URINE MICROSCOPIC EXAM Routine 03/05/2024 7:30 AM CDT Kidney stone ROUTINE UA WITH MICROSCOPIC Routine 03/05/2024 7:30 AM CDT Kidney stone from Last 3 Months Results * (ABNORMAL) UA with Microscopic (04/21/2024 10:30 AM HEAT AND FROST INSULATOR HELPER) Only the most recent of2 resultswithin the time period is included. Color Urine Yellow Colorless, Straw, Light Yellow, Yellow 04/21/2024 11:45 AM HEAT AND FROST INSULATOR HELPER [facility] Appearance Urine Clear Clear 04/21/20 24 11:45 AM HEAT AND FROST INSULATOR HELPER [facility] Glucose Urine Negative Negative mg/dL 04/21/2024 11:45 AM HEAT AND FROST INSULATOR HELPER [facility] Bilirubin Urine Negative Negative 11:45 AM HEAT AND FROST INSULATOR HELPER [facility] Ketones Urine Negative Negative mg/dL 04/21/2024 11:45 AM HEAT AND FROST INSULATOR HELPER [facility] Specific Peterson Urine 1.020 1.003 - 1.035 04/21/2024 11:45 AM HEAT AND FROST INSULATOR HELPER [facility] Blood Urine Negative Negative 04/21/2024 11:45 AM HEAT AND FROST INSULATOR HELPER [facility] pH Urine 6.5 5.0 - 7.0 04/21/2024 11:45 AM HEAT AND FROST INSULATOR HELPER [facility] Protein Albumin Urine Negative Negative mg/dL 04/21/2024 11:45 AM HEAT AND FROST INSULATOR HELPER LABORATORY Urobilinogen Urine 0.2 0.2, 1.0 E.U./dL 04/21/2024 11:45 AM HEAT AND FROST INSULATOR HELPER LABORATORY Nitrite Urine Positive(A) Negative 04/21/2024 11:45 AM HEAT AND FROST INSULATOR HELPER LABORATORY Leukocyte Esterase Urine Large(A) Negative 04/21/2024 11:45 AM HEAT AND FROST INSULATOR HELPER LABORATORY Urine URINE SPECIMEN OBTAINED BY CLEAN CATCH PROCEDURE / Unknown Non-blood Collection / Unknown 04/21/2024 10:30 AM HEAT AND FROST INSULATOR HELPER 04/21/2024 11:40 AM HEAT AND FROST INSULATOR HELPER Carlos Joyner MD LAB - URINE ORDERABLES Fin al Result Performing Organization Address City/[facility]/ZIP Co de Phone Number LABORATORY [place] [phone] [facility] (no room number, 1st floor of [facility]) [address] * (ABNORMAL) Urine Microscopic Exam (04/21/2024 10:30 AM HEAT AND FROST INSULATOR HELPER) Only the most recent of2 resultswithin the time period is included. Bacteria Urine Moderate( A) None Seen /HPF LINDA 04/21/2024 11:48 AM HEAT AND FROST INSULATOR HELPER LABORATORY RBC Urine 2-5(A) 0-2 /HPF /HPF LINDA 04/21/2024 11:48 AM HEAT AND FROST INSULATOR HELPER LABORATORY WBC Urine 25-50(A) 0-5 /HPF /HPF LINDA 04/21/2024 11:48 AM HEAT AND FROST INSULATOR HELPER LABORATORY Squamous Epithelials Urine Few(A) None Seen /LPF LINDA 04/21/2024 11:48 AM HEAT AND FROST INSULATOR HELPER LABORATORY Urine URINE SPECIMEN OBTAINED BY CLEAN CATCH PROCEDURE / Unknown Non-blood Collection / Unknown 04/21/2024 10:30 AM HEAT AND FROST INSULATOR HELPER 04/21/2024 11:40 AM HEAT AND FROST INSULATOR HELPER Carlos Joyner MD LAB - URINE ORDERABLES Fin al Result Performing Organization Address City/[facility]/ZIP Co de Phone Number LABORATORY [facility] [address] [facility] (no room number, 1st floor of [facility]) [address] * (ABNORMAL) Urine Culture (04/21/2024 10:30 AM HEAT AND FROST INSULATOR HELPER) Only the most recent of2 resultswithin the time period is included. Culture >100,000 CFU/mL Escherichia coli(A) LINDA 04/23/2024 8:04 PM HEAT AND FROST INSULATOR HELPER [facility] Culture >100,000 CFU/mL Enterobacter cloacae complex(A) 04/23/2024 8:04 PM HEAT AND FROST INSULATOR HELPER [facility] Urine MID-STREAM URINE SPECIMEN / Unknown Non-blood Collection / Unknown 04/21/2024 10:30 AM HEAT AND FROST INSULATOR HELPER 04/21/2024 11:40 AM HEAT AND FROST INSULATOR HELPER Narrative Organism Antibiotic Method Susceptibility Escherichia coli Ampicillin LINDA <=2 ug/mL: Susceptible Escherichia coli Ampicillin/ Sulbactam LINDA <=2 ug/mL: Susceptible Escherichia coli Piperacillin/Tazobactam LINDA <=4 ug/mL: Susceptible Escherichia coli Cefazolin LINDA <=4 ug/mL: Susceptible Comment:Cefazolin [place] C breakpoints are for the treatment of [...] ORDERA BLES Final Result [facility] Inf. Diseases Diag. Lab [address] [facility], Room [address] [place], [place] [phone] * XR Spine Complete Scoliosis 2 Views (03/30/2024 1:38 PM HEAT AND FROST INSULATOR HELPER) Anatomical Region Laterality Modality Spine Computed Radiogr aphy Impressions 03/31/2024 1:57 PM HEAT AND FROST INSULATOR HELPER Impression: 1. Postoperative changes of T10 through pelvis fusion without evidence of hardware complication. 2. No substantial coronal curvature of the spine. 3. Negative global coronal imbalance. 4. Positive global sagittal imbalance. MILLA CHOI DO Narrative 03/31/2024 1:57 PM HEAT AND FROST INSULATOR HELPER Exam: Full spine radiographs using EOS [...] spine. Negative global coronal imbalance. Sagittal Vertical [place] (A vertical line drawn from the center [...] spine. Negative global coronal imbalance. Sagittal Vertical [place] (A vertical line drawn from the center [...] 3 Months [place] [facility] INDIVIDUAL [facility] [place] [facility] INDIVIDUAL [facility] [place] Advance Directives For more information, please contact: [phone] Documents on File Type Date Recorded Patient Pulp Screen Operator Expl anation Advance Directives and Living Will [...] continue PREVIOUSLY ORDERED code status Care Teams Funeral Location Manager Relationship Specialty [place] [address] [place] [address] PCP - General 03/05/23 Carlos Joyner MD [address] [place] [address] 190505 Urology 12/09/19 Jadon Murray MD [facility] [address] [facility] [address] [place], [place] [phone] Referring Physician Pediatric Surgery 12/09/19 Maru Villagomez RN Registered Nurse 12/10/19 Ang Slade MD [address] [place] [address] Urology 04/24/20 Carlos Joyner MD [address] [place] [address] 152025 Assigned Surgical Provider 12/24/20 Ang Slade MD [address] [place] [address] Urology 12/18/22 Lakshmi Wilhelm PA-C [address] [place] [address] 292355 Physician Claim Trainee Urology 02/03/23 [place] [address] [facility] [place] [address] Assigned PCP 02/06/23 Alissa Perez PA-C [address] [place] [address] 822005 Physician Claim Trainee Surgery 09/04/23 Lakshmi Wilhelm PA-C [address] [place] [address] Physician Claim Trainee Urology 09/16/23 Aidee Valero PA-C [address] [place] [address] 787505 Assigned Musculoskeletal Provider 04/17/24 Tanisha Marlow [address] [facility] [address] 03/30/24
--- OUTSIDE RECORDS SUMMARY | 2024-04-30 03:01 | XMS_ITS | Encounter Summary ---
Author Organization [place] Address [address] [place] [address] Care Team Providers Care Retail Helper Name Role Phone Carlos Joyner MD Unavailable [phone] Jadon Murray MD Unavailable [phone] Maru Villagomez RN Unavailable Unavailable Ang Slade MD Unavailable [phone] Carlos Joyner MD Unavailable [phone] Ang Slade MD Unavailable [phone] Lakshmi Wilhelm-C Unavailable [phone] Heladio Willoughby MD Primary Care Provider [phone] Heladio Willoughby MD Unavailable Alissa Perez PA-C Unavailable [phone] Lakshmi Wilhelm-C Unavailable [phone] Aidee Valero PA-C Unavailable [phone] Encounter Details Date Type Department Care Team [...] st Contact Info) Description 06/15/2024 9:30 AM MANAGER DISASTER RECOVERY Office Visit [address] [phone] Xu Prince MD [address] [place] [address] 152794 06/15/2024 2:30 PM MANAGER DISASTER RECOVERY Office Visit [facility] [address] [place] [address] Andreea Cruz PA-C [address] [place] [address] 07/21/2024 4:00 PM MANAGER DISASTER RECOVERY Office Visit [facility] [address] [place] [address] [place] [address] [place] [address] documented as of this encounter Visit Diagnoses Not on filedocumented in this encounter Care Teams Retail Helper Relationship Specialty [place] [address] [place] [address] PCP - General 03/05/23 Carlos Joyner MD [address] [place] [address] 389415 Urology 12/09/19 Jadon Murray MD [facility] [address] [phone] Referring Physician Pediatric Surgery 12/09/19 Maru Villagomez, RN Registered Nurse 12/10/19 Ang Slade MD [address] [place] [address] 180635 Urology 04/24/20 Carlos Joyner MD [address] [place] [address] [id number] Assigned Surgical Provider 12/24/20 Ang Slade MD [address] [place] [address] Urology 12/18/22 Lakshmi Wilhelm PA-C [address] [place] [address] 792015 Physician Accessibility Lift Technician Urology 02/03/23 [place] [address] [place] [address] Assigned PCP 02/06/23 Alissa Perez PA-C [address] [place] [address] Physician Accessibility Lift Technician Surgery 09/04/23 Lakshmi Wilhelm PA-C [address] [place] [address] Physician Accessibility Lift Technician Urology 09/16/23 Aidee Valero PA-C [address] [place] [address] Assigned Musculoskeletal Provider 04/17/24 Tanisha Marlow [address] [place] [address] 03/30/24 documented as of this encounter
--- OUTSIDE RECORDS SUMMARY | 2024-04-30 03:01 | XMS_ITS | Encounter Summary ---
Author Organization [place] Address [address] [place] [address] Care Team Providers Care Bakery Team Leader Name Role Phone Carlos Joyner MD Unavailable [phone] Jadon Murray MD Unavailable [phone] Maru Villagomez RN Unavailable Unavailable Ang Slade MD Unavailable [phone] Carlos Joyner MD Unavailable [phone] Ang Slade MD Unavailable Lakshmi Wilhelm-C Unavailable Heladio Willoughby MD Primary Care Provider [phone] Heladio Willoughby MD Unavailable Alissa Perez PA-C Unavailable [phone] Lakshmi Wilhelm-C Unavailable [phone] Aidee Valero PA-C Unavailable Encounter Details Date Type Department Care Team (Late st Contact Info) Description 04/26/2024 [facility] [address] [place] [address] Carlos Joyner MD [address] [place] [address] Recurrent UTI (Primary Dx) Social History [...] Answer Date Recorded Do you have housing? (Housashish g is defined as stable permanent housing [...] UTI and antibiotic being sent to the [facility] in [place]. She voices understanding. Thank you, Hattie Wing RN, BSN Urology Triage Nurse LIFT MATERIAL HANDLER documented in this encounter Plan of Treatment Upcoming Encounters Date Type Department Care Team (Late st Contact Info) Description 06/15/2024 9:30 AM FORKLIFT MATERIAL HANDLER Office Visit [address] [phone] Xu Prince MD 606 [address] 106 [place], [place] 188154 06/15/2024 2:30 PM FORKLIFT MATERIAL HANDLER Office Visit [facility] [address] [place] [address] Andreea Cruz PA-C [address] [place] [address] 07/21/2024 4:00 PM FORKLIFT MATERIAL HANDLER Office Visit [facility] [address] [place] [address] [place] [address] [place] [address] documented as of this encounter Visit Diagnoses Diagnosis Recurrent UTI- Primary Urinary tract infection, site not specified documented in this encounter Care Teams Bakery Team Leader Relationship Specialty Start Date End Date Heladio Will[place]by [place] [address] [place] [address] PCP - General 03/05/23 Carlos Joyner MD 9 [place] [address] Urology 12/09/19 Jadon Murray MD [facility] 25[address] [facility] 550 [place], [place] [phone] Referring Physician Pediatric Surgery 12/09/19 Maru Villagomez, RN Registered Nurse 12/10/19 Ang Slade MD [address] [place] [address] [address] [place], [place] [phone] Urology 04/24/20 Carlos Joyner MD [address] [place] [address] 079025 Assigned Surgical Provider 12/24/20 Ang Slade MD [address] [place] [address] 273165 Urology 12/18/22 Lakshmi Wilhelm PA-C [address] [place] [address] [phone] Physician Motorcycle Riding Instructor Urology 02/03/23 [place] [address] [place] [address] Assigned PCP 02/06/23 Alissa Perez PA-C [address] [place] [address] 507745 Physician Motorcycle Riding Instructor Surgery 09/04/23 Lkashmi Wilhelm PA-C [address] [place] [address] 384325 Physician Motorcycle Riding Instructor Urology 09/16/23 Aidee Valero PA-C [address] [place] [address] 815285 Assigned Musculoskeletal Provider 04/17/24 Tanisha Marlow [address] [facility] [address] 03/30/24 documented as of this encounter
--- OUTSIDE RECORDS SUMMARY | 2024-04-30 03:01 | XMS_ITS | Encounter Summary ---
Author Organization [facility] Address [address] [place] [address] Care Team Providers Care Career Development Engineer Name Role Phone Carlos Joyner MD Unavailable [phone] Jadon Murray MD Unavailable [phone] Maru Villagomez RN Unavailable Unavailable Ang Slade MD Unavailable [phone] Carlos Joyner MD Unavailable [phone] Ang Slade MD Unavailable [phone] Lakshmi Wilhelm-C Unavailable Heladio Willoughby MD Primary Care Provider Heladio Willoughby MD Unavailable Alissa Perez PA-C Unavailable [phone] Lakshmi Wilhelm-C Unavailable [phone] Aidee Valero PA-C Unavailable Encounter Details Date Type Department Care Team (Late st Contact Info) Description 04/21/2024 [facility] [address] [place] [address] Carlos Joyner MD [address] [place] [address] Recurrent UTI (Primary Dx) Social History [...] Hattie Wing RN, BSN Urology Triage Nurse ERVATION EDUCATOR documented in this encounter Plan of Treatment Upcoming Encounters Date Type Department Care Team (Late st Contact Info) Description 06/15/2024 9:30 AM CONSERVATION EDUCATOR Office Visit [address] [phone] Xu Prince MD [address] [place] [address] 06/15/2024 2:30 PM CONSERVATION EDUCATOR [facility] [address] [place] [address] Andreea Cruz PA-C [address] [place] [address] 07/21/2024 4:00 PM CONSERVATION EDUCATOR Office Visit [facility] [address] [place] [address] [place] [address] [place] [address] documented as of this encounter Results * (ABNORMAL) UA with Microscopic (04/21/2024 10:30 AM CONSERVATION EDUCATOR) Color Urine Yellow Colorless, Straw, Light Yellow, Yellow 04/21/2024 11:45 AM CONSERVATION EDUCATOR LABORATORY Appearance Urine Clear Clear 04/21/20 11:45 AM CONSERVATION EDUCATOR LABORATORY Glucose Urine Negative Negative mg/dL 04/21/2024 11:45 AM CONSERVATION EDUCATOR [facility] Bilirubin Urine Negative Negative 11:45 AM CONSERVATION EDUCATOR [facility] Ketones Urine Negative Negative mg/dL 04/21/2024 11:45 AM CONSERVATION EDUCATOR [facility] Specific [place] Urine 1.020 1.003 - 1.035 04/21/2024 11:45 AM CONSERVATION EDUCATOR [facility] Blood Urine Negative Negative 04/21/2024 11:45 AM CONSERVATION EDUCATOR [facility] pH Urine 6.5 5.0 - 7.0 04/21/2024 11:45 AM CONSERVATION EDUCATOR [facility] Protein Albumin Urine Negative Negative mg/dL 04/21/2024 11:45 AM CONSERVATION EDUCATOR [facility] Urobilinogen Urine 0.2 0.2, 1.0 E.U./dL 04/21/2024 11:45 AM CONSERVATION EDUCATOR [facility] Nitrite Urine Positive(A) Negative 04/21/2024 11:45 AM CONSERVATION EDUCATOR LABORATORY Leukocyte Esterase Urine Large(A) Negative 04/21/2024 11:45 AM CONSERVATION EDUCATOR LABORATORY Urine URINE SPECIMEN OBTAINED BY CLEAN CATCH PROCEDURE / Unknown Non-blood Collection / Unknown 04/21/2024 10:30 AM CONSERVATION EDUCATOR 04/21/2024 11:40 AM CONSERVATION EDUCATOR Carlos Joyner MD LAB - URINE ORDERABLES Fin al Result [facility] [address] [facility] (no room number, 1st floor of clinic) [place] [address], [facility] * (ABNORMAL) Urine Culture (04/21/2024 10:30 AM CONSERVATION EDUCATOR) [facility] Culture >100,000 CFU/mL Escherichia coli(A) LINDA 04/23/2024 8:04 PM CONSERVATION EDUCATOR [facility] Culture >100,000 CFU/mL Enterobacter cloacae complex(A) 04/23/2024 8:04 PM CONSERVATION EDUCATOR [facility] Urine MID-STREAM URINE SPECIMEN / Unknown Non-blood Collection / Unknown 04/21/2024 10:30 AM CONSERVATION EDUCATOR 04/21/2024 11:40 AM CONSERVATION EDUCATOR Narrative Organism Antibiotic Method Susceptibility Escherichia coli [...] ORDERA BLES Final Result [facility] Inf. Diseases Diag. Lab [address] [facility], [address] [place] [address], [facility] documented in this encounter Visit Diagnoses Diagnosis Recurrent UTI- Primary Urinary tract infection, site not specified documented in this encounter Care Teams Career Development Engineer Relationship Specialty [place] [address] [place] [address] PCP - General 03/05/23 Carlos Joyner MD [address] [place] [address] Urology 12/09/19 Jadon Murray MD [facility] [address] [address] Referring Physician Pediatric Surgery 12/09/19 Maru Villagomez, RN Registered Nurse 12/10/19 Ang Slade MD [address] [place] [address] [id number] Urology 04/24/20 Carlos Joyner MD [address] [place] [address] Assigned Surgical Provider 12/24/20 Ang Slade MD [address] [place] [address] Urology 12/18/22 Lakshmi Wilhelm PA-C [address] [place] [address] [facility] Urology 02/03/23 [place] [address] [place] [address] Assigned PCP 02/06/23 Alissa Perez PA-C [address] [place] [address] [phone] [facility] Surgery 09/04/23 Lakshmi Wilhelm PA-C [address] [place], [place] [id number] [facility] Urology 09/16/23 Aidee Valero PA-C [address] [place] [address] [id number] Assigned Musculoskeletal Provider 04/17/24 Tanisha Marlow [address] [facility] [id number] 03/30/24 documented as of this encounter
--- OUTSIDE RECORDS SUMMARY | 2024-04-30 03:01 | XMS_ITS | Encounter Summary ---
Author Organization [facility] Address [address] [place] [address] Care Team Providers Care Radiation Officer Name Role Phone Carlos Joyner MD Unavailable [phone] Jadon Murray MD Unavailable [phone] Maru Villagomez RN Unavailable Unavailable Ang Slade MD Unavailable [phone] Carlos Joyner MD Unavailable [phone] Ang Slade MD Unavailable [phone] Lakshmi Wilhelm-C Unavailable [phone] Heladio Willoughby MD Primary Care Provider [phone] Heladio Willoughby MD Unavailable Alissa Perez PA-C Unavailable [phone] Lakshmi Wilhelm-C Unavailable [phone] Aidee Valero PA-C Unavailable [phone] Reason for Visit * Reason Onset Date Comments Call Back 04/21/2024 Pt still having UTI Symptoms. They are wanting to see about getting a new antibiotic. Please call Nurse culture manager at [phone]. Please call Yamini. As they would like to get something done prior to the holiday. Thanks Encounter Details Date Type Department Care Team ([facility] st Contact Info) Description 04/21/2024 Telephone [facility] Urology Clinic [address] 4th [place] [address] Carlos Joyner MD [address] [place] [address] Call Back (Pt still having UTI Symptoms. They are wanting to see about getting a new antibiotic. Please call Nurse culture manager at [phone]. Please call Yamini. As they would like [...] getting a new antibiotic. Please call Nurse culture manager at [phone]. Please call Yamini. As they would like to get something done prior to the holiday. Thanks Action Taken: Other: uro Travel Screening: Not Applicable Date of Service: HASING INTERN documented in this encounter Plan of Treatment Upcoming Encounters Date Type Department Care Team (Late st Contact Info) Description 06/15/2024 9:30 AM PURCHASING INTERN Office Visit [address] [phone] Xu Prince MD [address] [place] [address] [id number] 06/15/2024 2:30 PM PURCHASING INTERN Office Visit [facility] [address] [place] [address] Andreea Cruz PA-C [address] [place] [address] 07/21/2024 4:00 PM PURCHASING INTERN Office Visit [facility] [address] [place] [address] [place] [address] [place], [place] [phone] documented as of this encounter Visit Diagnoses Not on filedocumented in this encounter Care Teams Radiation Officer Relationship Specialty Start [place] [address] [place], [place] [phone] PCP - General 03/05/23 Carlos Joyner MD [address] [place] [address] [phone] Urology 12/09/19 Jadon Murray MD [facility] [address] [facility] [address] [place] [address] Referring Physician Pediatric Surgery 12/09/19 Maru Villagomez, RN Registered Nurse 12/10/19 Ang Slade MD [address] [facility] [address] [place], [place] 559295 Urology 04/24/20 Carlos Joyner MD [address] [place] [address] [id number] Assigned Surgical Provider 12/24/20 Ang Slade MD [address] [facility] [address] [place], [place] 214395 Urology 12/18/22 Lakshmi Wilhelm PA-C [address] [place] [address] [phone] Physician Mastic Sprayer Urology 02/03/23 [place] [address] [place] [address] Assigned PCP 02/06/23 Alissa Perez PA-C [address] [place] [address] [id number] Physician Mastic Sprayer Surgery 09/04/23 Lakshmi Wilhelm PA-C [address] [place] [address] Physician Mastic Sprayer Urology 09/16/23 Aidee Valero, [facility] [address] [place] [address] Assigned Musculoskeletal Provider 04/17/24 Tanisha Marlow [address] [facility] [address] 03/30/24 documented as of this encounter
--- OUTSIDE RECORDS SUMMARY | 2024-04-30 03:01 | XMS_ITS | Referral Summary ---
Author Organization [facility] Address [address] [place] [address] Care Team Providers Care Head Of Ethics And Compliance Name Role Phone Carlos Joyner MD Unavailable [phone] Jadon Murray MD Unavailable [phone] Maru Villagomez RN Unavailable Unavailable Ang Slade MD Unavailable [phone] Carlos Joyner MD Unavailable [phone] Ang Slade MD Unavailable [phone] Lakshmi Wilhelm PA-C Unavailable [phone] Heladio Willoughby MD Primary Care Provider Heladio Willoughby MD Unavailable Alissa Perez PA-C Unavailable [phone] Lakshmi Wilhelm PA-C Unavailable Aidee Valero PA-C Unavailable [phone] Encounters Date Type Department Care Team Description 04/28/2024 Travel 04/26/2024 Orders Only [facility] Urology [address] [place] [address] Carlos Joyner MD Recurrent UTI (Primary Dx) 04/26/2024 MyC Medical Advice [facility] [address] [place] [address] Rosita Velasco RN 04/21/2024 Travel 04/21/2024 11:45 AM HOROLOGIST APPRENTICE Lab [facility] [address] [place] [address] Recurrent UTI 04/21/2024 Orders Only [facility] [address] [phone] Carlos Joyner MD Recurrent UTI (Primary Dx) 04/21/2024 Telephone [facility] [address] [address] Carlos Joyner MD Call Back (Pt still having UTI Symptoms. They are wanting to see about getting a new antibiotic. Please call Nurse sales product manager at [phone]. Please call Yamini. As they would like to get something done prior to the holiday. Thanks ) 04/21/2024 Telephone [facility] [address] [place] [address] Heladio Willoughby MD 04/13/2024 Telephone [facility] [address] [place] [address] Heladio Willoughby MD Orders 04/13/2024 Documentation Only [facility] [address] [phone] Estrella Martinez NP Forms; Orders (Catheter, lubrication, gloves) 04/12/2024 Medical Correspondence [facility] Health Information Management [address] [facility] [place] [address] Scan, Non-Provider 04/01/2024 MyC Medical Advice [facility] Orthopedic [address] [phone] Aidee Valero PA-C 03/30/2024 Telephone [facility] [address] [phone] Aidee Valero PA-C 03/30/2024 Travel 03/30/2024 PRE VISIT [facility] [address] [phone] Aidee Valero PA-C Previsit 03/30/2024 1:40 PM HOROLOGIST APPRENTICE Ancillary Procedure [facility] Xray [address] [phone] Aidee Valero PA-C Thoracic spina bifida, unspecified hydrocephalus presence (H) 03/30/2024 2:00 PM HOROLOGIST APPRENTICE Office Visit [facility] [address] [phone] Aidee Valero PA-C History of spinal fusion (Primary Dx); Thoracic spina bifida, unspecified hydrocephalus presence (H) 03/25/2024 Travel 03/23/2024 Orders Only [facility] [address] [phone] Aidee Valero PA-C Thoracic spina bifida, unspecified hydrocephalus presence (H) (Primary Dx) 03/09/2024 Telephone [facility] [address] [phone] Aidee Valero PA-C 03/09/2024 Telephone [facility] [address] [phone] Unknown, MD Ronak Appointment 03/05/2024 Travel 03/05/2024 10:45 AM CDT Lab [facility] [address] [place] [phone] Kidney stone 03/02/2024 Orders Only [facility]rology [address] [phone] Carlos Joyner MD Kidney stone (Primary Dx) 03/02/2024 MyC Medical Advice [facility] [address] [phone] Carlos Joyner MD Recurrent UTI (Primary Dx) 02/14/2024 Refill [facility] Clinic [address] [place] [phone] Carlos Joyner MD Medication Refill (Potassium Chloride Marcie ER Oral Tablet Extended Release 10 MEQ) 02/13/2024 [facility] [place] [address] [place] [phone] Carlos Joyner MD 02/06/2024 MyC Medical Advice [address] [address] Heladio Willoughby MD Forms ([facility] [employer] Lunchroom Operator... 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 (03/14/2020): Vertebra Absence Congenital Kyphosis (acquired) (postural) 08/04/2008 Overview (03/14/2020): Kyphosis Neurogenic bladder 07/22/2003 Overview (03/05/2023): LW Onset: 76Hky73 ; Paralysis Bladder Neurogenic bowel 07/22/2003 Overview (03/14/2020): LW Onset: 20Agl10 Paraplegia 07/22/2003 Overview (04/18/2023): 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 07/22/2003 Overview (03/14/2020): LW Onset: 33Bws88 ; Short Stature 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/22/2003 Overview (04/16/2023): LW Modifier: shunted LW Onset: 57Wbu96 ; Spina Bifida Lumbar w Hydrocephalus Resolved Problems Problem Noted Date Diagnosed Date Resolved Date Acute kidney failure, unspecified 02/10/2020 03/05/2023 Immunizations Name Administration Dates Next Due DTAP (<7y) 01/18/2008,05/06/2005 DTaP, Unspecified 01/16/2015 DTaP/HepB/IPV 05/27/2003,03/21/2003,2002 Flu, Unspecified 02/26/2016,02/21/2009, 4 D0x0-05 Novel Flu 03/18/2009 F5l4-20 Novel Flu P-free 03/30/2004,05/27/2003 HEPATITIS A (PEDS [...] 61.2 kg (135 lb) 03/30/2024 2:01 PM HOROLOGIST APPRENTICE Height 147.3 cm (4' 10) 03/30/2024 2:01 PM HOROLOGIST APPRENTICE Body Mass Index 28.22 03/30/2024 2:01 PM HOROLOGIST APPRENTICE Plan of Treatment Upcoming Encounters Date Type Department Care Team (Late st Contact Info) Description 06/15/2024 9:30 AM HOROLOGIST APPRENTICE Office Visit [facility] [address] [place] [phone] Xu Prince MD [address] [address] 06/15/2024 2:30 PM HOROLOGIST APPRENTICE Office Visit [facility] [address] [place] [address] Andreea Cruz PA-C [address] [place] [address] 07/21/2024 4:00 PM HOROLOGIST APPRENTICE Office Visit [facility] [address] [place] [address] [place] [address] [place] [address] Medical Devices Implanted Type Area Sawyer Cork Slabs Device Identifier Shelf Expiration Date Model / Serial / Lot Stent Ureteral Percuflex Plus [id number] - [id number] Implanted:Qty: 1 on 11/12/2021 by Carlos Joyner MD at [facility] Stent Right: Abdomen [employer] [id number] 12/26/2022 [id number] Ureteral Catheter 5 Montenegrin Implanted:Qty: 1 on 03/31/2023 by Elizabeth Jacobsen MD at [facility] Right: Ureter 02/02/2026 [id number] Description:5 greenlandic Uretera l catheter used as a stent in right ureter 5 Montenegrin Open Ended Catheter Implanted:Qty: 1 on 03/31/2023 by Elizabeth Jacobsen MD at [facility] Left: Ureter 02/19/2026 [id number] / / [id number] Explanted Type Area Sawyer Cork Slabs Device Identifier Shelf Expiration Date Model / Serial / Lot Stent Ureteral Percuflex Plus [id number] - [id number] Implanted:Qty: 1 on 05/10/2021 by Carlos Joyner MD at [facility] Explanted:Qty: 1 on 08/09/2021 by Jane Gomez MD at [facility] Stent Right: Urethra [employer] 06/14/2022 [id number] / [id number] Description:Ureter Stent Ureteral Percuflex Plus [id number] - [id number] Implanted:Qty: 1 on 05/10/2021 by Carlos Joyner MD at [facility] Explanted:Qty: 1 on 08/09/2021 by Jane Gomez MD at [facility] Stent Left: Urethra [employer] 07/25/2022 [id number] Stent Ureteral Percuflex Plus [id number] - [id number] Implanted:Qty: 1 on 08/09/2021 by Jane Gomez MD at [facility] Explanted:Qty: 1 on 11/12/2021 at [facility] Stent Right: Ureter [employer] 02/29/2024 [id number] Stent Ureteral Percuflex Plus [id number] - [id number] Implanted:Qty: 1 on 08/09/2021 by Jane Gomez MD at [facility] Explanted:Qty: 1 on 11/12/2021 at [facility] Stent Right: Ureter [employer] 02/29/2024 [id number] / / [id number] 5 Fr X 22cm Ureteral Stent Explanted:Qty: 1 on 02/07/2020 by Carlos Joyner MD at [facility] COOK 5 Fr X 22cm Ureteral Stent Explanted:Qty: 1 on 02/07/2020 by Carlos Joyner MD at [facility] COOK Procedures Procedure Name Priority Date/Time Associated Diagnosis Comments URINE CULTURE Routine 04/21/2024 10:30 AM HOROLOGIST APPRENTICE Recurrent UTI URINE MICROSCOPIC EXAM Routine 04/21/2024 10:30 AM HOROLOGIST APPRENTICE Recurrent UTI ROUTINE UA WITH MICROSCOPIC Routine 04/21/2024 10:30 AM HOROLOGIST APPRENTICE Recurrent UTI XR SPINE COMPLETE SCOLIOSIS 2 VIEWS Routine 03/30/2024 1:38 PM HOROLOGIST APPRENTICE Thoracic spina bifida, unspecified hydrocephalus presence (H) URINE CULTURE Routine 03/05/2024 7:30 AM CDT Kidney stone URINE MICROSCOPIC EXAM Routine 03/05/2024 7:30 AM CDT Kidney stone ROUTINE UA WITH MICROSCOPIC Routine 03/05/2024 7:30 AM CDT Kidney stone from Last 3 Months Results * (ABNORMAL) UA with Microscopic (04/21/2024 10:30 AM HOROLOGIST APPRENTICE) Only the most recent of2 resultswithin the time period is included. Color Urine Yellow Colorless, Straw, Light Yellow, Yellow 04/21/2024 11:45 AM HOROLOGIST APPRENTICE [facility] Appearance Urine Clear Clear 04/21/20 24 11:45 AM HOROLOGIST APPRENTICE [facility] Glucose Urine Negative Negative mg/dL 04/21/2024 11:45 AM HOROLOGIST APPRENTICE [facility] Bilirubin Urine Negative Negative 4 11:45 AM HOROLOGIST APPRENTICE [facility] Ketones Urine Negative Negative mg/dL 04/21/2024 11:45 AM HOROLOGIST APPRENTICE [facility] Specific Martin Urine 1.020 1.003 - 1.035 04/21/2024 11:45 AM HOROLOGIST APPRENTICE LABORATORY Blood Urine Negative Negative 04/21/2024 11:45 AM HOROLOGIST APPRENTICE LABORATORY pH Urine 6.5 5.0 - 7.0 04/21/2024 11:45 AM HOROLOGIST APPRENTICE LABORATORY Protein Albumin Urine Negative Negative mg/dL 04/21/2024 11:45 AM HOROLOGIST APPRENTICE LABORATORY Urobilinogen Urine 0.2 0.2, 1.0 E.U./dL 04/21/2024 11:45 AM HOROLOGIST APPRENTICE LABORATORY Nitrite Urine Positive(A) Negative 04/21/2024 11:45 AM HOROLOGIST APPRENTICE LABORATORY Leukocyte Esterase Urine Large(A) Negative 04/21/2024 11:45 AM HOROLOGIST APPRENTICE LABORATORY Urine URINE SPECIMEN OBTAINED BY CLEAN CATCH PROCEDURE / Unknown Non-blood Collection / Unknown 04/21/2024 10:30 AM HOROLOGIST APPRENTICE 04/21/2024 11:40 AM HOROLOGIST APPRENTICE Carlos Joyner MD LAB - URINE ORDERABLES Fin al Result LABORATORY [facility] [address] [facility] (no room number, 1st floor of clinic) [place] [address], [facility] * (ABNORMAL) Urine Microscopic Exam (04/21/2024 10:30 AM HOROLOGIST APPRENTICE) Only the most recent of2 resultswithin the time period is included. Bacteria Urine Moderate( A) None Seen /HPF LINDA 04/21/2024 11:48 AM HOROLOGIST APPRENTICE LABORATORY RBC Urine 2-5(A) 0-2 /HPF /HPF LINDA 04/21/2024 11:48 AM HOROLOGIST APPRENTICE LABORATORY WBC Urine 25-50(A) 0-5 /HPF /HPF LINDA 04/21/2024 11:48 AM HOROLOGIST APPRENTICE LABORATORY Squamous Epithelials Urine Few(A) None Seen /LPF LINDA 04/21/2024 11:48 AM HOROLOGIST APPRENTICE LABORATORY Urine URINE SPECIMEN OBTAINED BY CLEAN CATCH PROCEDURE / Unknown Non-blood Collection / Unknown 04/21/2024 10:30 AM HOROLOGIST APPRENTICE 04/21/2024 11:40 AM HOROLOGIST APPRENTICE Carlos Joyner MD LAB - URINE ORDERABLES Fin al Result LABORATORY [facility] [address] [facility] (no room number, 1st floor of clinic) [place] [address], [facility] * (ABNORMAL) Urine Culture (04/21/2024 10:30 AM HOROLOGIST APPRENTICE) Only the most recent of2 resultswithin the time period is included. Culture >100,000 CFU/mL Escherichia coli(A) LINDA 04/23/2024 8:04 PM HOROLOGIST APPRENTICE [facility] Culture >100,000 CFU/mL Enterobacter cloacae complex(A) 04/23/2024 8:04 PM HOROLOGIST APPRENTICE [facility] Urine MID-STREAM URINE SPECIMEN / Unknown Non-blood Collection / Unknown 04/21/2024 10:30 AM HOROLOGIST APPRENTICE 04/21/2024 11:40 AM HOROLOGIST APPRENTICE Narrative Organism Antibiotic Method Susceptibility Escherichia coli Ampicillin LINDA <=2 ug/mL: Susceptible Escherichia coli Ampicillin/ Sulbactam LINDA <=2 ug/mL: Susceptible Escherichia coli Piperacillin/Tazobactam LINDA <=4 ug/mL: Susceptible Escherichia coli Cefazolin LINDA <=4 ug/mL: Susceptible Comment:Cefazolin IA C breakpoints are for the treatment of [...] <=1 ug/mL: Susceptible Enterobacter cloacae complex Tobramycin LIDNA <=1 ug/mL: Susceptible Enterobacter cloacae complex Ciprofloxacin [...] ORDERA BLES Final Result [facility] [employer] Inf. Diseases Diag. Lab [address] [facility], Room [address] [place], [place] [id number] * XR Spine Complete Scoliosis 2 Views (03/30/2024 1:38 PM HOROLOGIST APPRENTICE) Anatomical Region Laterality Modality Spine Computed Radiogr aphy Impressions 03/31/2024 1:57 PM HOROLOGIST APPRENTICE Impression: 1. Postoperative changes of T10 through pelvis fusion without evidence of hardware complication. 2. No substantial coronal curvature of the spine. 3. Negative global coronal imbalance. 4. Positive global sagittal imbalance. MILLA CHOI DO Narrative 03/31/2024 1:57 PM HOROLOGIST APPRENTICE Exam: Full spine radiographs using EOS History: [...] spine. Negative global coronal imbalance. Sagittal Vertical Troutman (A vertical line drawn from the center [...] spine. Negative global coronal imbalance. Sagittal Vertical [place] (A vertical line drawn from the center [...] global sagittal imbalance. MILLA CHOI DO Aidee Valreo PA-C IMG DIAGNOSTIC IMAGING ORDER ERROL Final Result from Last 3 Months Insurance [place] [facility] [facility] [facility] [facility] [place] Advance Directives For more information, please contact: [phone] Documents on File Type Date Recorded Patient Dining Car Server Expl anation Advance Directives and Living Will [...] Comments Code status determined by: Discussion with errole nt/ legal decision maker * Full Code [...] continue PREVIOUSLY ORDERED code status Care Teams Head Of Ethics And Compliance Relationship Specialty [place] [address] [place] [address] PCP - General 03/05/23 Carlos Joyner MD [address] [place] [address] Urology 12/09/19 Jadon Murray MD [facility] [address] [facility] 550 [place] [address] Referring Physician Pediatric Surgery 12/09/19 Maru Villagomez, RN Registered Nurse 12/10/19 Ang Slade MD [address] [place] [address] [address] [place] [address] Urology 04/24/20 Carlos Joyner MD [address] [place] [address] [id number] Assigned Surgical Provider 12/24/20 Ang Slade MD [address] [place] [id number] MD Urology 12/18/22 Lakshmi Wilhelm PA-C [address] [place] [address] Justice Urology 02/03/23 [place] [address] [place] [address] Assigned PCP 02/06/23 Alissa Perez PA-C [address] [place] [address] Justice Surgery 09/04/23 Lakshmi Wilhelm PA-C [address] [place] [address] Justice Urology 09/16/23 Aidee Valero PA-C [address] [place] [address] Assigned Musculoskeletal Provider 04/17/24 Tanisha Marlow [address] [facility] [address] 03/30/24
--- OUTSIDE RECORDS SUMMARY | 2024-04-30 03:01 | XMS_ITS | Encounter Summary ---
Author Organization [facility] Address [address] [place] [address]. [place] [address] Care Team Providers Care Fairground Operator Name Role Phone Carlos Joyner MD Unavailable [phone] Jadon Murray MD Unavailable [phone] Maru Villagomez RN Unavailable Unavailable Ang Slade MD Unavailable [phone] Carlos Joyner MD Unavailable [phone] Ang Slade MD Unavailable [phone] Lakshmi Wilehlm PA-C Unavailable [phone] Heladio Willoughby MD Primary Care Provider [phone] Heladio Willoughby MD Unavailable Alissa Perez PA-C Unavailable [phone] Lakshmi Wilhelm PA-C Unavailable [phone] Aidee Valero PA-C Unavailable [phone] Encounter Details Date Type Department Care Team (Late st Contact Info) Description 04/26/2024 [facility] Medical Advice [facility] [address] 4th [place] [address] Rosita Velasco, RN Social History [...] as of this encounter Progress Notes * Rosita Velasco RN - 04/26/2024 8:20 AM CST Spoke with Tanisha from [employer]. Appreciate the update on Laina's care. No additional needsat this time. OTILIO Becker Crime Scene Evidence Technician- Urology [phone] RAMMING DIRECTOR documented in this encounter Plan of Treatment Upcoming Encounters Date Type Department Care Team (Late st Contact Info) Description 06/15/2024 9:30 AM PROGRAMMING DIRECTOR Office Visit [address] [address] Xu Prince MD [address] [place] [address] 06/15/2024 2:30 PM PROGRAMMING DIRECTOR [facility] [address] [place] [address] Andreea Cruz PA-C [address] [place] [address] 07/21/2024 4:00 PM PROGRAMMING DIRECTOR [facility] [address] [place] [address] [place] [address] [place] [address] documented as of this encounter Visit Diagnoses Not on filedocumented in this encounter Care Teams Fairground Operator Relationship Specialty Start Date End Date Heladio [place] [id number] [place], [place] [address], [place] 8[address] PCP - General 03/05/23 Carlos Joyner MD [address] [place] [address] 625975 Urology 12/09/19 Jadon Murray MD [facility] [address] [facility] [address] [place] [address] Referring Physician Pediatric Surgery 12/09/19 Maru Villagomez, OTILIO Registered Nurse 12/10/19 Ang Slade MD [address] [place] [address] 394 [place] [address] Urology 04/24/20 Carlos Joyner MD [address] [place] [address] Assigned Surgical Provider 12/24/20 Ang Slade MD [address] [place] [address] Urology 12/18/22 Lakshmi Wilhelm PA-C [address] [place] [address] Physician Outdoor Illuminating Engineer Urology 02/03/23 [place] [address] [place] [address] Assigned PCP 02/06/23 Alissa Perez PA-C [address] [place] [address] Physician Outdoor Illuminating Engineer Surgery 09/04/23 Lakshmi Wilhelm PA-C [address] [place] [address] Physician Outdoor Illuminating Engineer Urology 09/16/23 Aidee Valero PA-C [address] [place] [address] Assigned Musculoskeletal Provider 04/17/24 Tanisha Marlow 4[address] [facility] [address] 03/30/24 documented as of this encounter
--- OUTSIDE RECORDS SUMMARY | 2024-04-30 03:01 | XMS_ITS | Encounter Summary ---
Author Organization [facility] Address [address] [place] [address] Care Team Providers Care Car Salter Name Role Phone Carlos Joyner MD Unavailable [phone] Jadon Murray MD Unavailable [phone] Maru Villagomez RN Unavailable Unavailable Ang Slade MD Unavailable [phone] Carlos Joyner MD Unavailable [phone] Ang Slade MD Unavailable [phone] Lakshmi Wilhelm-C Unavailable Heladio Willoughby MD Primary Care Provider [phone] Heladio Willoughby MD Unavailable Alissa Perez PA-C Unavailable [phone] Lakshmi Wilhelm-C Unavailable [phone] Reason for Visit * Reason Comments Forms Orders Catheter, lubricatio n, gloves Encounter Details Date Type Department Care Team (Latest Contact Info) Description 04/13/[address] [facility] [place] [address] [facility] [address] 4th [place] [address] Estrella Martinez NP [address] [facility], ROOM [address] [address] Forms; Orders (Catheter, lubrication, gloves) [...] Completed forms Yes Faxed Forms Faxed To: [facility] Fax Number: [phone] Sent to HIM (Date) 04/13/24 S CUTTER HAND documented in this encounter Plan of Treatment Upcoming Encounters Date Type Department Care Team (Late st Contact Info) Description 06/15/2024 9:30 AM GLASS CUTTER HAND Office Visit [facility] [address] [place] [address] Xu Prince MD 606 [facility] 106 [place], [place] [address] 06/15/2024 2:30 PM GLASS CUTTER HAND [facility] [address] [place] [address] Andreea Cruz PA-C [address] [place] [address] 07/21/2024 4:00 PM GLASS CUTTER HAND [facility] [address] [place] [address] [place] [address] [place] [address] documented as of this encounter Visit Diagnoses Not on filedocumented in this encounter Care Teams Car Salter Relationship Specialty Start [place] [address] [place] [address] PCP - General 03/05/23 Carlos Joyner MD [address] [place] [address] 935355 Urology 12/09/19 Jadon Murray MD [facility] 2530 [facility] 550 [place], [place] [id number] Referring Physician Pediatric Surgery 12/09/19 Maru Villagomez, RN Registered Nurse 12/10/19 Ang Slade MD [address] [place] [address] [address] Urology 04/24/20 Carlos Joyner MD [address] [place] [address] Assigned Surgical Provider 12/24/20 Ang Slade MD [address] [place] [address] Urology 12/18/22 Lakshmi Wilhelm PA-C [address] [place] [address] Physician Marketing Liaison Urology 02/03/23 [place] [address] [place] [address] Assigned PCP 02/06/23 Alissa Perez PA-C [address] [place] [address] 852615 Physician Marketing Liaison Surgery 09/04/23 Lakshmi Wilhelm PA-C [address] [place] [address] 884475 Physician Marketing Liaison Urology 09/16/23 Tanisha Marlow 4[address] [facility] [address] 03/30/24 documented as of this encounter
--- OUTSIDE RECORDS SUMMARY | 2024-04-30 03:01 | XMS_ITS | Encounter Summary ---
Author Organization [facility] Address [address] [place] [address] Care Team Providers Care Supervisor Asbestos Textile Name Role Phone Carlos Joyner MD Unavailable [phone] Jadon Murray MD Unavailable [phone] Maru Villagomez RN Unavailable Unavailable Ang Slade MD Unavailable +[phone] Carlos Joyner MD Unavailable [phone] Ang Slade MD Unavailable [phone] Lakshmi Wilhelm-C Unavailable +[phone] Heladio Willoughby MD Primary Care Provider [phone] Heladio Willoughby MD Unavailable Alissa Perez PA-C Unavailable [phone] Lakshmi Wilhelm-C Unavailable [phone] Encounter Details Date Type Department Care Team (Late st Contact Info) Description 04/12/2024 Medical Correspondence [facility] Health Information Management [address] [facility] 180 [place] [address] Scan, Non-Provider Social History Tobacco Use Types [...] st Contact Info) Description 06/15/2024 9:30 AM MUD WORKER Office Visit [address] [phone] Xu Prince MD [address] [place] [address] 209974 06/15/2024 2:30 PM MUD WORKER Office Visit [facility] [address] [place] [address] Andreea Cruz PA-C [address] [place], [place] 9301168 07/21/2024 4:00 PM MUD WORKER Office Visit [facility] [address] [place] [phone] [place] [address] [address] [place], [place] 4856668 documented as of this encounter Visit Diagnoses Not on filedocumented in this encounter Care Teams Supervisor Asbestos Textile Relationship Specialty Start [place] [address] [address] [place] [id number] PCP - General 03/05/23 Carlos Joyner MD [address] [place] [address] 885405 Urology 12/09/19 Jadon Murray MD [facility] [address] [address] Referring Physician Pediatric Surgery 12/09/19 Maru Villagomez, RN Registered Nurse 12/10/19 Ang Slade MD [address] [place] [address] 14784 Urology 04/24/20 Carlos Joyner MD [address] [place] [address] 96300 Assigned Surgical Provider 12/24/20 Ang Slade MD [address] [place] [address] 29278 Urology 12/18/22 Lakshmi Wilhelm PA-C [address] [place] [address] 53357 Physician Swatch Cutter Urology 02/03/23 [place] [address] [place] [address] Assigned PCP 02/06/23 Alissa Perez PA-C 500 [place], [place] [phone] Physician Swatch Cutter Surgery 09/04/23 Lakshmi Wilhelm PA-C [address] [place] [address] 261185 Physician Swatch Cutter Urology 09/16/23 Tanisha Marlow 4120 [facility] [address] 03/30/24 documented as of this encounter
--- OUTSIDE RECORDS SUMMARY | 2024-04-30 03:01 | XMS_ITS | Encounter Summary ---
Author Organization [facility] Address [address] [place] [address]. [place] [address] Care Team Providers Care Manager Sales Training Name Role Phone Carlos Joyner MD Unavailable [phone] Jadon Murray MD Unavailable [phone] Maru Villagomez RN Unavailable Unavailable Ang Slade MD Unavailable +[phone] Carlos Joyner MD Unavailable [phone] Ang Slade MD Unavailable [phone] Lakshmi Wilhelm PA-C Unavailable [phone] Heladio Willoughby MD Primary Care Provider [phone] Heladio Willoughby MD Unavailable Alissa Perez PA-C Unavailable [phone] Lakshmi Wilhelm PA-C Unavailable [phone] Aidee Valero PA-C Unavailable [phone] Encounter Details Date Type Department Care Team (Late st Contact Info) Description 04/21/2024 Telephone [facility] [address] [place] [address] [place] [address] [place] [address] Social History Tobacco Use Types [...] Tamara Islas RN - 04/21/2024 8:30 AM SPEECH COACH Received a call from Tangela from [facility] [phone]. Home Care is calling regarding an established patient with [facility]. She said the pt was recently treated [...] Phone number given. Tamara F. Bastyr, RN CH COACH documented in this encounter Plan of Treatment Upcoming Encounters Date Type Department Care Team (Late st Contact Info) Description 06/15/2024 9:30 AM SPEECH COACH Office Visit [facility] [address] [place] [phone] Xu Prince MD [address] [place], [place] [address]E S [facility] 106 [place], [place] 550844 06/15/2024 2:30 PM SPEECH COACH Office Visit [facility] [address] [place] [address] Andreea Cruz PA-C [address] [place] [address] 07/21/2024 4:00 PM SPEECH COACH [facility] [address] [place] [address] [place] [address] [place] [address] documented as of this encounter Visit Diagnoses Not on filedocumented in this encounter Care Teams Manager Sales Training Relationship Specialty Start [place] [address] [place], [place] [phone] PCP - General 03/05/23 Carlos Joyner MD 909 [place], [place] 473375 Urology 12/09/19 Jadon Murray MD [facility] [address] [place] [address] [place], [place] [phone] Referring Physician Pediatric Surgery 12/09/19 Maru Villagomez, RN Registered Nurse 12/10/19 Ang Slade MD [address] [place] [address] Urology 04/24/20 Carlos Joyner MD [address] [place] [address] 593285 Assigned Surgical Provider 12/24/20 Ang Slade MD [address] [place] [address] 698935 Urology 12/18/22 Lakshmi Wilhelm PA-C [address] [place] [address] 845445 Physician Threading Machine Setter Urology 02/03/23 [place] [address] [place] [address] Assigned PCP 02/06/23 Alissa Perez PA-C [address] [place] [address] 868225 Physician Threading Machine Setter Surgery 09/04/23 Lakshmi Wilhelm PA-C [address] [place] [address] 005645 Physician Threading Machine Setter Urology 09/16/23 Aidee Valero PA-C [address] [place] [address] 381475 Assigned Musculoskeletal Provider 04/17/24 Tanisha Marlow [address] [place] [address] 03/30/24 documented as of this encounter
--- OUTSIDE RECORDS SUMMARY | 2024-04-30 03:01 | XMS_ITS | Encounter Summary ---
Author Organization [facility] Address [address] [place] [address]. [place] [address] Care Team Providers Care Scale Model Maker Name Role Phone Carlos Joyner MD Unavailable [phone] Jadon Murray MD Unavailable [phone] Maru Villagomez RN Unavailable Unavailable Ang Slade MD Unavailable [phone] Carlos Joyner MD Unavailable [phone] Ang Slade MD Unavailable [phone] Lakshmi Wilhelm-C Unavailable [phone] Heladio Willoughby MD Primary Care Provider [phone] Heladio Willoughby MD Unavailable Alissa Perez PA-C Unavailable [phone] Lakshmi Wilhelm-C Unavailable [phone] Reason for Visit * Reason Onset Date Comments Orders 04/13/2024 Encounter Details Date Type Department Care Team (Late st Contact Info) Description 04/13/2024 Telephone [facility] [address] [place] [address] [place] [address] [place] [address] Orders Social History Tobacco Use [...] 10:52 AM CST Scheduled. Kasia Gutierrez Lead Olericulturist [facility] [place] BOX TENDER * Telephone Encounter - Heladio Willoughby MD - 04/16/2024 10:41 AM CST If standing order is , does need follow up visit to discuss. Please let them know and help set up appt. Thanks, Heladio Willoughby MD [place] C[facility] Haines 04/16/2024 BOX TENDER * Telephone Encounter - Tanisha Quiros RN - 04/13/2024 4:33 PM CST Routing to [place] team. I do not administer depo, unsure if order is active. Can someone confirm if standing order is active? Tanisha Quiros RN on 04/13/2024 at 4:34 PM BOX TENDER * Telephone Encounter - Heladio Willoughby MD [...] let them know. Thanks, Heladio Willoughby MD [facility] 04/13/2024 BOX TENDER * Telephone Encounter - Oliva Muñoz RN - 04/13/2024 2:20 PM CST Tanisha, guardian calling [phone]. I scheduled her physical for 07/21/23. Needs [...] on 07/21/23. Please advise. Oliva Muñoz RN BOX TENDER documented in this encounter Plan of Treatment Upcoming Encounters Date Type Department Care Team (Late st Contact Info) Description 06/15/2024 9:30 AM DRY BOX TENDER Office Visit [facility] [address] [facility] [address] [place] [phone] Xu Prince MD [address] [place] [address] 106 [place], [place] 089254 06/15/2024 2:30 PM DRY BOX TENDER [facility] [address] [place] [address] Andreea Cruz PA-C [address] [place] [address] 07/21/2024 4:00 PM DRY BOX TENDER [facility] [address] [place] [address] [place] [address] [place], [place] 2675468 documented as of this encounter Visit Diagnoses Not on filedocumented in this encounter Care Teams Scale Model Maker Relationship Specialty Start Date [place] [id number] [place] [address] [id number] PCP - General 03/05/23 Carlos Joyner MD [address] [place] [address] Urology 12/09/19 Jadon Murray MD [facility] 2530 [facility] 550 [place] [address] Referring Physician Pediatric Surgery 12/09/19 Maru Villagomez, RN Registered Nurse 12/10/19 Ang Slade MD [address] [address] Urology 04/24/20 Carlos Joyner MD [address] [place] [address] Assigned Surgical Provider 12/24/20 Ang Slade MD [address] [place] [address]36 Urology 12/18/22 Lakshmi Wilhelm PA-C [address] [place] [address] Physician Academic Success Coordinator Urology 02/03/23 [place] [address] [place] [address] Assigned PCP 02/06/23 Alissa Perez PA-C [address] [place] [address] Physician Academic Success Coordinator Surgery 09/04/23 Lakshmi Wilhelm PA-C [address] [place] [address] Physician Academic Success Coordinator Urology 09/16/23 Tanisha Marlow 4120 [facility] [address] 03/30/24 documented as of this encounter
--- OUTSIDE RECORDS SUMMARY | 2024-04-30 03:02 | XMS_ITS | Encounter Summary ---
Author Organization [place] Address [address] [place] [address] Care Team Providers Care Inspector Multifocal Lens Name Role Phone Carlos Joyner MD Unavailable [phone] Jadon Murray MD Unavailable [phone] Maru Villagomez RN Unavailable Unavailable Ang Slade MD Unavailable +[phone] Carlos Joyner MD Unavailable [phone] Ang Slade MD Unavailable [phone] Lakshmi Wilhelm-C Unavailable [phone] Heladio Willoughby MD Primary Care Provider [phone] Heladio Willoughby MD Unavailable Alissa Perez PA-C Unavailable [phone] Lakshmi Wilhelm-C Unavailable [phone] Aidee Valero PA-C Unavailable [phone] Encounter Details Date Type Department Care Team (Late st Contact Info) Description 07/01/2023 [facility] [address] [place] [address] Joao Arceo MA Social History Tobacco [...] st Contact Info) Description 06/15/2024 9:30 AM MANGANESE HEATER Office Visit [address] [address] Xu Prince MD [address] [address] 360064 06/15/2024 2:30 PM MANGANESE HEATER Office Visit [facility] [address] [place] [phone] Andreea Cruz PAYuki [address] [place], [place] 7737368 07/21/2024 4:00 PM MANGANESE HEATER Office Visit [facility] [address] [place] [phone] [place] [address] [place] [address] documented as of this encounter Visit Diagnoses Not on filedocumented in this encounter Care Teams Inspector Multifocal Lens Relationship Specialty [place] [address] [address] [phone] PCP - General 03/05/23 Carlos Joyner MD [address] [place] [address] Urology 12/09/19 Jadon Murray MD [facility] 2530 [facility] 550 [place] [address] Referring Physician Pediatric Surgery 12/09/19 Maru Villagomez, OTILIO Registered Nurse 12/10/19 Ang Slade MD [address] [place] [address] 153995 Urology 04/24/20 Carlos Joyner MD [address] [place] [address] Assigned Surgical Provider 12/24/20 Ang Slade MD [address] [address] Urology 12/18/22 Lakshmi Wilhelm PA-C 909 [place] [address] Physician Insurance Assistant Urology 02/03/23 [place] [address] [place] [address] Assigned PCP 02/06/23 Alissa Perez PA-C [address] [place] [address] Physician Insurance Assistant Surgery 09/04/23 Lakshmi Wilhelm PA-C [address] [place] [address] Physician Insurance Assistant Urology 09/16/23 Aidee Valero PA-C [address] [place] [address] Assigned Musculoskeletal Provider 04/17/24 Tanisha Marlow 4120 [facility] [address] 03/30/24 documented as of this encounter
--- OUTSIDE RECORDS SUMMARY | 2024-04-30 03:02 | XMS_ITS | Encounter Summary ---
Author Organization [facility] Address [address] [place] [address] Care Team Providers Care Operating Room Assistant Name Role Phone Carlos Joyner MD Unavailable [phone] Jadon Murray MD Unavailable [phone] Maru Villagomez RN Unavailable Unavailable Ang Slade MD Unavailable [phone] Carlos Joyner MD Unavailable [phone] Ang Slade MD Unavailable [phone] Lakshmi Wilhelm PA-C Unavailable Heladio Willoughby MD Primary Care Provider [phone] Heladio Willoughby MD Unavailable Alissa Perez PA-C Unavailable [phone] Lakshmi Wilhelm PA-C Unavailable [phone] Aidee Valero PA-C Unavailable [phone] Encounter Details Date Type Department Care Team (Late st Contact Info) Description 06/25/2023 [facility] [address] [place] [address] Carlos Joyner MD [address] [place] [address] Social History Tobacco Use Types Packs/Day [...] st Contact Info) Description 06/15/2024 9:30 AM MODELER Office Visit [address] [address] Xu Prince MD [address] [place] [address] 06/15/2024 2:30 PM MODELER Office Visit [facility] [address] [place] [address] Andreea Cruz, PAEarlC [address] [facility] [place], [place] 7823868 07/21/2024 4:00 PM MODELER Office Visit [facility] [address] [place] [address] [place] [address] [place], [place] 3630468 documented as of this encounter Visit Diagnoses Not on filedocumented in this encounter Care Teams Operating Room Assistant Relationship Specialty [place] [address] [facility] [place], [place] 1008968 PCP - General 03/05/23 Carlos Joyner MD [address] [place] [address] 452175 Urology 12/09/19 Jadon Murray MD [facility] 2530 [facility] 550 [place] [address] Referring Physician Pediatric Surgery 12/09/19 Maru Villagomez, OTILIO Registered Nurse 12/10/19 Ang Slade MD [address] [place] [address] Urology 04/24/20 Carlos Joyner MD [address] [place] [address] 392095 Assigned Surgical Provider 12/24/20 Ang Slade MD [address] [place] [address] Urology 12/18/22 Lakshmi Wilhelm PA-C [address] [place] [address] 955715 Physician Acid Blower Urology 02/03/23 [place] [address] [facility] [place] [address] Assigned PCP 02/06/23 Alissa Perez PA-C [address] [place] [address] Physician Acid Blower Surgery 09/04/23 Lakshmi Wilhelm PA-C [address] [place] [address] Physician Acid Blower Urology 09/16/23 Aidee Valero PA-C [address] [place] [address] 138045 Assigned Musculoskeletal Provider 04/17/24 Tanisha Marlow 4120 [facility] [address] 03/30/24 documented as of this encounter
--- OUTSIDE RECORDS SUMMARY | 2024-04-30 03:02 | XMS_ITS | Encounter Summary ---
Author Organization [facility] Address [address] [place] [address]. [place] [address] Care Team Providers Care Film Examiner Name Role Phone Carlos Joyner MD Unavailable [phone] Jadon Murray MD Unavailable [phone] Maru Villagomez RN Unavailable Unavailable Ang Slade MD Unavailable [phone] Carlos Joyner MD Unavailable [phone] Ang Slade MD Unavailable [phone] Lakshmi Wilhelm-C Unavailable [phone] Heladio Willoughby MD Primary Care Provider [phone] Heladio Willoughby MD Unavailable Alissa Perez PA-C Unavailable [phone] Lakshmi Wilhelm-C Unavailable [phone] Aidee Valero PA-C Unavailable [phone] Reason for Visit * Reason Onset Date Comments Forms 02/06/2024 [facility]cial Education Cooperative - Medication Authorization Form Encounter Details Date Type Department Care Team (Late st Contact Info) Description 02/06/2024 [facility] [address] [place] [address] [place] [address] [place] [address] Forms ([facility] Education Inclusion Internship... Social History Tobacco Use Types Packs/Day Years [...] Authorization Form Who is the form from? [facility] [employer] [facility] (if other please explain) Where did/will the form come from? form was sent via [employer] When is form/letter needed by: [facility] How would you like the form/letter returned: [employer] Printed forms and placed in provider's basket for review and signature Kasia Gutierrez Lead Instructor [facility] documented in this encounter Plan of Treatment Upcoming Encounters Date Type Department Care Team (Late st Contact Info) Description 06/15/2024 9:30 AM MANAGER GLOBAL Office Visit [facility] [address] [place] [address] Xu Prince MD [address] [place], [place] [address] [address] 553614 06/15/2024 2:30 PM MANAGER GLOBAL [facility] [address] [place] [phone] Andreea Cruz PA-C [address] [place] [address] 07/21/2024 4:00 PM MANAGER GLOBAL [facility] [address] [place] [address] [place] [address] [place], [place] 9314468 documented as of this encounter Visit Diagnoses Not on filedocumented in this encounter Care Teams Film Examiner Relationship Specialty [place] [address] [place], [place] [phone] PCP - General 03/05/23 Carlos Joyner MD 909 [place], [place] 563985 Urology 12/09/19 Jadon Murray MD [facility] [address] [facility] 550 [place] [address] Referring Physician Pediatric Surgery 12/09/19 Maru Villagomez, RN Registered Nurse 12/10/19 Ang Slade MD [address] [place] [address] 394 [place] [address] Urology 04/24/20 Carlos Joyner MD [address] [place] [address] 467675 Assigned Surgical Provider 12/24/20 Ang Slade MD [address] [place] [address]997 MD Urology 12/18/22 Lakshmi Wilhelm PA-C [address] [place] [address] 607785 Physician Cadastral Surveyor Urology 02/03/23 [place] [address] [place] [address] Assigned PCP 02/06/23 Alissa Perez PA-C [address] [place] [address] Physician Cadastral Surveyor Surgery 09/04/23 Lakshmi Wilhelm PA-C [address] [place] [address] 381065 Physician Cadastral Surveyor Urology 09/16/23 Aiede Valero PA-C [address] [place] [address] 602735 Assigned Musculoskeletal Provider 04/17/24 Tanisha Marlow [address] [facility] [place] [address] 03/30/24 documented as of this encounter
--- OUTSIDE RECORDS SUMMARY | 2024-04-30 03:02 | XMS_ITS | Encounter Summary ---
Author Organization [facility] Address [address] [place] [address] Care Team Providers Care Delivery Motorcycle Driver Name Role Phone Carlos Joyner MD Unavailable [phone] Jadon Murray MD Unavailable [phone] Maru Villagomez RN Unavailable Unavailable Ang Slade MD Unavailable [phone] Carlos Joyner MD Unavailable [phone] Ang Slade MD Unavailable [phone] Lakshmi Wilhelm PA-C Unavailable [phone] Heladio Willoughby MD Primary Care Provider [phone] Heladio Willoughby MD Unavailable Alissa Perez PA-C Unavailable [phone] Lakshmi Wilhelm PA-C Unavailable [phone] Aidee Valero PA-C Unavailable [phone] Reason for Visit * Reason Onset Date Comments Appointment 03/09/2024 Encounter Details Date Type Department Care Team (Late st Contact Info) Description 03/09/2024 Telephone [facility] [place] [address] [facility] [address] 4th [place] [address] Unknown, Doctor, MD Appointment Social [...] st Contact Info) Description 06/15/2024 9:30 AM ROADS AND PARKING LOTS SWEEPER OPERATOR Office Visit [address] [address] Xu Prince MD [address] [place], [place] [address] 06/15/2024 2:30 PM ROADS AND PARKING LOTS SWEEPER OPERATOR [facility] [address] [place] [address] Andreea Cruz PA-C [address] [place] [address] 07/21/2024 4:00 PM ROADS AND PARKING LOTS SWEEPER OPERATOR [facility] [address] [place] [address] [place] [address] [place] [address] documented as of this encounter Visit Diagnoses Not on filedocumented in this encounter Care Teams Delivery Motorcycle Driver Relationship Specialty Start Date End Date [place] [address] [place] [address] [id number] PCP - General 03/05/23 Carlos Joyner MD [address] [place] [address] Urology 12/09/19 Jadon Murray MD [facility] 2530 [facility] 550 [place] [address] Referring Physician Pediatric Surgery 12/09/19 Maru Villagomez, RN Registered Nurse 12/10/19 Ang Slade MD [address] [place] [address] 394 [place] [address] Urology 04/24/20 Carlos Joyner MD NPI: [id number] [place] [address] Assigned Surgical Provider 12/24/20 Ang Slade MD [address] [place] [address] Urology 12/18/22 Lakshmi Wilhelm PA-C [address] [place] [address] Physician Neurology Physician Urology 02/03/23 [place] [address] [place] [address] Assigned PCP 02/06/23 Alissa Perez PA-C [address] [place] [address] Physician Neurology Physician Surgery 09/04/23 Lakshmi Wilhelm PA-C [address] [place] [address] Physician Neurology Physician Urology 09/16/23 Aidee Valero PA-C [address] [place] [address] Assigned Musculoskeletal Provider 04/17/24 Tanisha Marlow 4120 [facility] [address] 03/30/24 documented as of this encounter
--- OUTSIDE RECORDS SUMMARY | 2024-04-30 03:02 | XMS_ITS | Encounter Summary ---
Author Organization [place] Address [address] [place] [address]. [place] [address] Care Team Providers Care Channeler Name Role Phone Carlos Joyner MD Unavailable [phone] Jadon Murray MD Unavailable [phone] Maru Villagomez RN Unavailable Unavailable Ang Slade MD Unavailable +[phone] Carlos Joyner MD Unavailable +[phone] Ang Slade MD Unavailable +[phone] Lakshmi Wilhelm PA-C Unavailable +[phone] Heladio Willoughby MD Primary Care Provider [phone] Heladio Willoughby MD Unavailable Alissa Perez PA-C Unavailable [phone] Lakshmi Wilhelm PA-C Unavailable [phone] Aidee Valero PA-C Unavailable [phone] Encounter Details Date Type Department Care Team (Late st Contact Info) Description 05/05/2023 [facility] Medical Advice [facility] [address] 4th [place] [address] Rosita Velasco, RN Social History [...] st Contact Info) Description 06/15/2024 9:30 AM MULTIMEDIA EDITOR Office Visit [address] [address] Xu Prince MD [address] [place] [address] 450354 06/15/2024 2:30 PM MULTIMEDIA EDITOR Office Visit [facility] [address] [place] [phone] Andreea Cruz PA-C [address] [place], [place] 3812768 07/21/2024 4:00 PM MULTIMEDIA EDITOR Office Visit [facility] [place] [address] [address] [place] [phone] [place] [address] [address] [place] [id number] documented as of this encounter Visit Diagnoses Not on filedocumented in this encounter Care Teams Channeler Relationship Specialty [place] [address] [address] [id number] PCP - General 03/05/23 Carlos Joyner MD [address] [place] [address] Urology 12/09/19 Jadon Murray MD [facility] 2530 [facility] 550 [place] [address] Referring Physician Pediatric Surgery 12/09/19 Maru Villagomez, OTILIO Registered Nurse 12/10/19 Ang Slade MD [address] [place] [address] Urology 04/24/20 Carlos Joyner MD [address] [place] [address]45 Assigned Surgical Provider 12/24/20 Ang Slade MD [address] [address] Urology 12/18/22 Lakshmi Wilhelm PA-C [address] [place] [address]91 Physician Clinical Nurse Manager Urology 02/03/23 [place] [address] [place] [address] Assigned PCP 02/06/23 Alissa Perez PA-C [address] [place] [address]3583 Physician Clinical Nurse Manager Surgery 09/04/23 Lakshmi Wilhelm PA-C [address] [place] [address] 41920 Physician Clinical Nurse Manager Urology 09/16/23 Aidee Valero PA-C [address] [place] [address] Assigned Musculoskeletal Provider 04/17/24 Tanisha Marlow 4120 [facility] [address] 03/30/24 documented as of this encounter
--- OUTSIDE RECORDS SUMMARY | 2024-04-30 03:02 | XMS_ITS | Encounter Summary ---
Author Organization [place] Address [address] [place] [address] Care Team Providers Care Grid Operator Name Role Phone Carlos Joyner MD Unavailable [phone] Jadon Murray MD Unavailable [phone] Maru Villagomez RN Unavailable Unavailable Ang Slade MD Unavailable [phone] Carlos Joyner MD Unavailable [phone] Ang Slade MD Unavailable [phone] Lakshmi WilhelmC Unavailable [phone] Heladio Willoughby MD Primary Care Provider [phone] Heladio Willoughby MD Unavailable Alissa Perez-C Unavailable [phone] Lakshmi WilhelmC Unavailable [phone] Encounter Details Date Type Department Care Team (Late st Contact Info) Description 03/09/2024 [facility] [address] [address] Aidee Valero PA-C [address] [place] [address] Social History Tobacco Use Types Packs/Day [...] st Contact Info) Description 06/15/2024 9:30 AM CLASSIFIER TENDER Office Visit [address] [phone] Xu Prince MD [address] [place] [address] 06/15/2024 2:30 PM CLASSIFIER TENDER [facility] [address] [place] [address] Andreea Cruz PA-C [address] [place] [address] 07/21/2024 4:00 PM CLASSIFIER TENDER [facility] [address] [place] [address] [place] [address] [place] [address] documented as of this encounter Visit Diagnoses Not on filedocumented in this encounter Care Teams Grid Operator Relationship Specialty Start Date End Date Helad[place] [id number] [place], [place] [address], [place] [phone] PCP - General 03/05/23 Carlos Joyner MD [address] [place] [address] Urology 12/09/19 Jadon Murray MD [facility] 2530 [facility] 550 [place] [address] Referring Physician Pediatric Surgery 12/09/19 Maru Villagomez, OTILIO Registered Nurse 12/10/19 Ang Slade MD [address] [place] [address] 394 [place] [address] Urology 04/24/20 Carlos Joyner MD [address] [place] [address] Assigned Surgical Provider 12/24/20 Ang Slade MD [address] [place] [address] Urology 12/18/22 Lakshmi Wilhelm PA-C [address] [place] [address] 34650 Physician Bar And Filler Assembler Urology 02/03/23 [place] [address] [place] [address] Assigned PCP 02/06/23 Alissa Perez PA-C [address] [place] [address] 013605 Physician Bar And Filler Assembler Surgery 09/04/23 Lkashmi Wilhelm PA-C [address] [place] [address] 962425 Physician Bar And Filler Assembler Urology 09/16/23 documented as of this encounter
--- OUTSIDE RECORDS SUMMARY | 2024-04-30 03:02 | XMS_ITS | Encounter Summary ---
Author Organization [place] Address [address] [place] [address] Care Team Providers Care Black Ash Worker Name Role Phone Carlos Joyner MD Unavailable [phone] Jadon Murray MD Unavailable [phone] Maru Villagomez RN Unavailable Unavailable Ang Slade MD Unavailable [phone] Carlos Joyner MD Unavailable [phone] Ang Slade MD Unavailable [phone] Lakshmi Wilhelm PA-C Unavailable Heladio Willoughby MD Primary Care Provider [phone] Heladio Willoughby MD Unavailable Alissa Perez PA-C Unavailable [phone] Lakshmi Wilhelm PA-C Unavailable [phone] Aidee Valero PA-C Unavailable [phone] Encounter Details Date Type Department Care Team (Late st Contact Info) Description 02/13/2024 [facility] [address]th [place] [address] Carlos Joyner MD [address] [place] [address] Social History Tobacco Use Types Packs/Day [...] st Contact Info) Description 06/15/2024 9:30 AM PRODUCT MANAGER E COMMERCE Office Visit [address] [address] Xu Prince MD [address] [place] [address] 06/15/2024 2:30 PM PRODUCT MANAGER E COMMERCE Office Visit [facility] [address] [place] [address] Andreea Cruz, PAEarlC 132[address] [facility] [place], [place] 0388668 07/21/2024 4:00 PM PRODUCT MANAGER E COMMERCE Office Visit [facility] [address] [place] [address] [place] [address] [address] [place], [place] 8694168 documented as of this encounter Visit Diagnoses Not on filedocumented in this encounter Care Teams Black Ash Worker Relationship Specialty [place] [address] [facility] [place], [place] 6162568 PCP - General 03/05/23 Carlos Joyner MD [address] [place] [address] 698605 Urology 12/09/19 Jadon Murray MD [facility] 2530 [facility] 550 [place] [address] Referring Physician Pediatric Surgery 12/09/19 Maru Villagomez, OTILIO Registered Nurse 12/10/19 Ang Slade MD [address] [place] [address] Urology 04/24/20 Carlos Joyner MD [address] [place] [address] 323895 Assigned Surgical Provider 12/24/20 Ang Slade MD [address] [place] [address] Urology 12/18/22 Lakshmi Wilhelm PA-C [address] [place] [address] 601655 Physician Civil Engineer Helper Urology 02/03/23 [place] [address] [facility] [place] [address] Assigned PCP 02/06/23 Alissa Perez PA-C [address] [place] [address] Physician Civil Engineer Helper Surgery 09/04/23 Lakshmi Wilhelm PA-C [address] [place] [address] Physician Civil Engineer Helper Urology 09/16/23 Aidee Valero PA-C [address] [place] [address] 891595 Assigned Musculoskeletal Provider 04/17/24 Tanisha Marlow 4120 [facility] [address] 03/30/24 documented as of this encounter
--- OUTSIDE RECORDS SUMMARY | 2024-04-30 03:02 | XMS_ITS | Encounter Summary ---
Author Organization [place] Address [address] [place] [address] Care Team Providers Care Brim Plater Name Role Phone Carlos Joyner MD Unavailable [phone] Jadon Murray MD Unavailable [phone] Maru Villagomez RN Unavailable Unavailable Ang Slade MD Unavailable [phone] Carlos Joyner MD Unavailable [phone] Ang Slade MD Unavailable [phone] Lakshmi Wilhelm-C Unavailable [phone] Heladio Willoughby MD Primary Care Provider [phone] Heladio Willoughby MD Unavailable Alissa Perez PA-C Unavailable [phone] Lakshmi Wilhelm-C Unavailable [phone] Aidee Valero PA-C Unavailable [phone] Encounter Details Date Type Department Care Team (Late st Contact Info) Description 09/08/2023 [facility] Medical Advice [address] [address] Bhavna Ferris Social History Tobacco [...] st Contact Info) Description 06/15/2024 9:30 AM FOREST FIRE PREVENTION MANAGER Office Visit [address] [address] Xu Prince MD [address] [place] [address] 673124 06/15/2024 2:30 PM FOREST FIRE PREVENTION MANAGER Office Visit [facility] [address] [place] [address] Andreea Cruz PA-C [address] [place], [place] 7380868 07/21/2024 4:00 PM FOREST FIRE PREVENTION MANAGER Office Visit [facility] [address] [address] [phone] [place] [address] [address] [place] [phone] documented as of this encounter Visit Diagnoses Not on filedocumented in this encounter Care Teams Brim Plater Relationship Specialty [place] [address] [address] [phone] PCP - General 03/05/23 Carlos Joyner MD [address] [place] [address] Urology 12/09/19 Jadon Murray MD [facility] 2530 [facility] 550 [place] [address] Referring Physician Pediatric Surgery 12/09/19 Maru Villagomez, OTILIO Registered Nurse 12/10/19 Ang Slade MD [address] [place] [address] Urology 04/24/20 Carlos Joyner MD [address] [place] [address] Assigned Surgical Provider 12/24/20 Ang Slade MD [address] [address] Urology 12/18/22 Lakshmi Wilhelm PA-C [address] [place] [address]368 Physician Decorating Instructor Urology 02/03/23 [place] [address] [place] [address] Assigned PCP 02/06/23 Alissa Perez PA-C [address] [place] [address]763 Physician Decorating Instructor Surgery 09/04/23 Lakshmi Wilhelm PA-C [address] [place] [address] Physician Decorating Instructor Urology 09/16/23 Aidee Valero PA-C [address] [place] [address] Assigned Musculoskeletal Provider 04/17/24 Tanisha Marlow 4120 [facility] [address] 03/30/24 documented as of this encounter
--- OUTSIDE RECORDS SUMMARY | 2024-04-30 03:02 | XMS_ITS | Encounter Summary ---
Author Organization [facility] Address [address] [place] [address] Care Team Providers Care Transition Coach Name Role Phone Carlos Joyner MD Unavailable [phone] Jadon Murray MD Unavailable [phone] Maru Villagomez RN Unavailable Unavailable Ang Slade MD Unavailable [phone] Carlos Joyner MD Unavailable [phone] Ang Slade MD Unavailable [phone] Lakshmi WilhelmC Unavailable [phone] Heladio Willoughby MD Primary Care Provider [phone] Heladio Willoughby MD Unavailable Alissa Perez PA-C Unavailable [phone] Lakshmi WilhelmC Unavailable [phone] Aidee ValeroC Unavailable [phone] Encounter Details Date Type Department Care Team (Late st Contact Info) Description 03/30/2024 Telephone [facility] Orthopedic [address] 4th [place] [address] Aidee Valero PA-C [address] [place] [address] Social History Tobacco Use Types Packs/Day [...] Natalie Abdullahi - 03/30/2024 3:23 PM CST [facility] Call Center Phone Message May a detailed message be left on voicemail: yes Reason for Call: Other: Anna is calling from Medical Records at [facility]. She is calling as she wants to know the time frame of records that are being requested? Action Taken: Other: te Travel Screening: Not Applicable Date of Service: MESH KNITTER documented in this encounter Plan of Treatment Upcoming Encounters Date Type Department Care Team (Late st Contact Info) Description 06/15/2024 9:30 AM WIRE MESH KNITTER Office Visit [facility] [address] [place] [address] Xu Prince MD 606 24[facility] 106 [place], [place] 777074 06/15/2024 2:30 PM WIRE MESH KNITTER [facility] [address] [place] [address] Andreea Cruz PA-C [address] [place] [address] 07/21/2024 4:00 PM WIRE MESH KNITTER [facility] [address] [place] [address] [place] [address] [place] [address] documented as of this encounter Visit Diagnoses Not on filedocumented in this encounter Care Teams Transition Coach Relationship Specialty Start Date [place] [address] [place] [address] PCP - General 03/05/23 Carlos Joyner MD [address] [place] [address] 556105 Urology 12/09/19 Jadon Murray MD [facility] 2530 [facility] 550 [place], [place] [address] Referring Physician Pediatric Surgery 12/09/19 Maru Villagomez, RN Registered Nurse 12/10/19 Ang Slade MD [address] [place] [address] 394 [place] [address] Urology 04/24/20 Carlos Joyner MD [address] [place] [address] Assigned Surgical Provider 12/24/20 Ang Slade MD [address] [place] [address] Urology 12/18/22 Lakshmi Wilhelm PA-C [address] [place] [address]383 Physician Ophthalmic Tech Urology 02/03/23 [place] [address] [place] [address] Assigned PCP 02/06/23 Alissa Perez PA-C [address] [place] [address] 779835 Physician Ophthalmic Tech Surgery 09/04/23 Lakshmi Wilhelm PA-C [address] [place] [address] 173005 Physician Ophthalmic Tech Urology 09/16/23 Aidee Valero PA-C [address] [place] [address] 105525 Assigned Musculoskeletal Provider 04/17/24 Tanisha Marlow 4120 [facility] [address] 03/30/24 documented as of this encounter
--- OUTSIDE RECORDS SUMMARY | 2024-04-30 03:02 | XMS_ITS | Encounter Summary ---
Author Organization [place] Address [address] [place] [address] Care Team Providers Care Teleradiologist Name Role Phone Carlos Joyner MD Unavailable [phone] Jadon Murray MD Unavailable [phone] Maru Villagomez RN Unavailable Unavailable Ang Slade MD Unavailable [phone] Carlos Joyner MD Unavailable [phone] Ang Slade MD Unavailable [phone] Lakshmi Wilhelm-C Unavailable [phone] Heladio Willoughby MD Primary Care Provider [phone] Heladio Willoughby MD Unavailable Alissa Perez PA-C Unavailable [phone] Lakshmi Wilhelm-C Unavailable [phone] Reason for Visit * Reason Comments Medication Refill Potassium Chloride C ngoc ER Oral Tablet Extended Release 10 MEQ Encounter Details Date Type Department Care Team (Late st Contact Info) Description 02/14/2024 Refill [facility] [address] [place] [address] Carlos Joyner MD [address] [place] [address] Medication Refill (Potassium Chloride Nieves ER [...] Miscellaneous Notes * Telephone Encounter - Judy Granda RN - 02/20/2024 7:54 AM CDT Potassium [...] st Contact Info) Description 06/15/2024 9:30 AM SIGNAL TOWER DIRECTOR Office Visit [facility] [address] [place] [address] Xu Prince MD [address] [facility] 106 [place], [place] 688434 06/15/2024 2:30 PM SIGNAL TOWER DIRECTOR [facility] [address] [place] [address] Andreea Cruz PAEarlC [address] [place] [address] 07/21/2024 4:00 PM SIGNAL TOWER DIRECTOR Office [facility] [address] [place] [address] [place] [address] [place], [place] 3794368 documented as of this encounter Visit Diagnoses Diagnosis Hypercalciuria Unspecified disorders of calcium metabolism documented in this encounter Care Teams Teleradiologist Relationship Specialty [place] [address] [place] [address] PCP - General 03/05/23 Carlos Joyner MD 909 [place] [address] Urology 12/09/19 Jadon Murray MD [facility] 2530 [facility] 550 [place] [address] Referring Physician Pediatric Surgery 12/09/19 Maru Villagomez, RN Registered Nurse 12/10/19 Ang Slade MD [address] [place] [address] 071345 Urology 04/24/20 Carlos Joyner MD [address] [place] [address] 115695 Assigned Surgical Provider 12/24/20 Ang Slade MD [address] [place] [address] 682175 Urology 12/18/22 Lakshmi Wilhelm PA-C [address] [place] [address] 073985 Physician Field Service Manager Urology 02/03/23 [place] [address] [place] [address] Assigned PCP 02/06/23 Alissa Perez PA-C [address] [place] [address] 660125 Physician Field Service Manager Surgery 09/04/23 Lakshmi Wilhelm PA-C [address] [place] [address] Physician Field Service Manager Urology 09/16/23 documented as of this encounter
--- OUTSIDE RECORDS SUMMARY | 2024-04-30 03:02 | XMS_ITS | Encounter Summary ---
Author Organization [place] Address [address] [place] [address] Care Team Providers Care Center Receptionist Name Role Phone Carlos Joyner MD Unavailable [phone] Jadon Murray MD Unavailable Maru Villagomez RN Unavailable Unavailable Ang Slade MD Unavailable [phone] Carlos Joyner MD Unavailable [phone] Ang Slade MD Unavailable Lakshmi Wilhelm-C Unavailable Heladio Willoughby MD Primary Care Provider [phone] Heladio Willoughby MD Unavailable Alissa Perez PA-C Unavailable [phone] Lakshmi Wilhelm-C Unavailable [phone] Encounter Details Date Type Department Care Team (Late st Contact Info) Description 03/02/2024 [facility] Urology Clinic [address] [place] [address] Carlos Joyner MD [address] [place] [address] Kidney stone (Primary Dx) Social History [...] st Contact Info) Description 06/15/2024 9:30 AM LOAD TEST MECHANIC Office Visit [address] [address] Xu Prince MD 60[facility] [address] [address] 06/15/2024 2:30 PM LOAD TEST MECHANIC Office Visit [facility] [address] [place] [address] Andreea Cruz PAEarlC [address] [place] [address] 07/21/2024 4:00 PM LOAD TEST MECHANIC Office Visit [facility] [address] [place] [address] [place] [address] [facility] [place], [place] 4361168 documented as of this encounter Results * [...] 03/05/2024 9:06 AM CDT [facility] Specific [place] Urine 1.025 1.003 - 1.035 03/05/2024 9:06 AM CDT [facility] Blood Urine Negative Negative 03/05/2024 9:06 AM CDT [facility] pH Urine 7.0 5.0 - 7.0 03/05/2024 9:06 AM CDT [facility] Protein Albumin Urine Trace(A) Negative mg/dL 03/05/2024 9:06 AM CDT [facility] Urobilinogen Urine 0.2 0.2, 1.0 [...] ORDERABLES Fin al Result [facility] [address] [facility] (no room number, 1st floor of clinic) [place] [address], [facility] * (ABNORMAL) Urine Culture (03/05/2024 7:30 [...] coli Cefazolin LINDA <=4 ug/mL: Susceptible Comment:Cefazolin DE C breakpoints are for the treatment of [...] testing. Intrinsically Resistant Enterobacter cloacae complex Cefoxitin ILNDA Resistant Comment:Intrinsicall y Resistant Enterobacter cloacae [...] ORDERA BLES Final Result [facility] Inf. Diseases Diag. Lab [address] [facility], Room [address] [place] [phone] documented in this encounter Visit Diagnoses Diagnosis Kidney stone- Primary Calculus of kidney documented in this encounter Care Teams Center Receptionist Relationship Specialty [place] [address] [place] [address] PCP - General 03/05/23 Carlos Joyner MD [address] [place] [address] Urology 12/09/19 Jadon Murray MD [facility] [address] [id number] Referring Physician Pediatric Surgery 12/09/19 Maru Villagomez, RN Registered Nurse 12/10/19 Ang Slade MD [address] [place] [address] Urology 04/24/20 Carlos Jonyer MD [address] [place] [address] 456435 Assigned Surgical Provider 12/24/20 Ang Slade MD [address] [place] [address] 519975 Urology 12/18/22 Lakshmi Wilhelm PA-C [address] [place] [address] 687625 Physician Financial Center Manager Urology 02/03/23 [place] [address] [place] [address] Assigned PCP 02/06/23 Alissa Perez PA-C [address] [place] [address] Physician Financial Center Manager Surgery 09/04/23 Lakshmi Wilhelm PA-C [address] [place] [address] Physician Financial Center Manager Urology 09/16/23 documented as of this encounter
--- OUTSIDE RECORDS SUMMARY | 2024-04-30 03:02 | XMS_ITS | Encounter Summary ---
Author Organization [place] Address [address] [place] [address] 90251 Care Team Providers Care Riprap Placer Name Role Phone Carlos Joyner MD Unavailable [phone] Jadon Murray MD Unavailable +[phone] Maru Villagomez RN Unavailable Unavailable Ang Slade MD Unavailable +[phone] Carlos Joyner MD Unavailable +[phone] Ang Slade MD Unavailable +[phone] Lakshmi WilhelmC Unavailable +[phone] Heladio Willoughby MD Primary Care Provider [phone] Heladio Willoughby MD Unavailable Alissa Perez-C Unavailable [phone] Lakshmi Wilhelm PA-C Unavailable [phone] Reason for Visit * Reason Onset Date Comments Previsit 03/30/2024 Encounter Details Date Type Department Care Team (Late st Contact Info) Description 03/30/2024 PRE VISIT [facility] [address] [place] [address] Aidee Valero PA-C [address] [place] [address] Previsit Social History Tobacco Use Types [...] in an abandoned building, in an overnight assisted, or couch-surfing.) Yes 04/16/2023 Are you worried [...] Internal 12/08/2023 - Alissa Perez PA-C - [facility] Colon Surgery 11/16/2018 - Thong Ellis MD - [facility] Specialty OPERATIVE REPORT In process: ZA NEEDED! [id number]: Spine surgery with [facility]cho[facility] @ 10 years old. MRI PACS [facility]: 01/17/2010 - Entire Spine 01/10/2009 - C Spine 01/10/2009 - T Spine 01/10/2009 - L Spine CT SCAN PACS Internal Radiology: 02/17/2021 - Abd/Pel XRAYS (IMAGES & REPORTS) PACS Internal [facility] [place]: 2020 - Abdomen/Spine Imaging [place]: - Spine Imaging F CYTOTECHNOLOGIST F CYTOTECHNOLOGIST F CYTOTECHNOLOGIST F CYTOTECHNOLOGIST documented in this encounter Plan of Treatment Upcoming Encounters Date Type Department Care Team (Late st Contact Info) Description 06/15/2024 9:30 AM STAFF CYTOTECHNOLOGIST Office Visit [address] [phone] Xu Prince MD [address] [place] [address] [phone] 06/15/2024 2:30 PM STAFF CYTOTECHNOLOGIST Office Visit [facility] [address] [place] [address] Andreea Cruz PA-C [address] [place], [place] 7304568 07/21/2024 4:00 PM STAFF CYTOTECHNOLOGIST Office Visit [facility] [address] [place] [address] [place] [address] [place] [address] documented as of this encounter Visit Diagnoses Not on filedocumented in this encounter Care Teams Riprap Placer Relationship Specialty [place] [address] [place] [address] PCP - General 03/05/23 Carlos Joyner MD [address] [place] [address] 9[address]37 Urology 12/09/19 Jadon Murray MD [facility] 2530 [facility] 550 [place], [place] [id number] Referring Physician Pediatric Surgery 12/09/19 Maru Villagomez, RN Registered Nurse 12/10/19 Ang Slade MD [address] [place] [address] 960575 Urology 04/24/20 Carlos Joyner MD [address] [place] [address] 431005 Assigned Surgical Provider 12/24/20 Ang Slade MD [address] [place] [address] 74082 Urology 12/18/22 Lakshmi Wilhelm PA-C [address] [place] [address] 974125 Physician Head Knitting Machine Fixer Urology 02/03/23 [place] [address] [place] [address] Assigned PCP 02/06/23 Alissa Perez PA-C [address] [place] [address] Physician Head Knitting Machine Fixer Surgery 09/04/23 Lakshmi Wilhelm PA-C 909 [place] [address] Physician Head Knitting Machine Fixer Urology 09/16/23 Tanisha Marlow 4120 [facility] [address] 03/30/24 documented as of this encounter
--- OUTSIDE RECORDS SUMMARY | 2024-04-30 03:02 | XMS_ITS | Encounter Summary ---
Author Organization [place] Address [address] [place] [address] 6[address]71 Care Team Providers Care Deep Fat Cook Fry Name Role Phone Carlos Joyner MD Unavailable [phone] Jadon Murray MD Unavailable [phone] Maru Villagomez RN Unavailable Unavailable Ang Slade MD Unavailable +[phone] Carlos Joyner MD Unavailable +[phone] Ang Slade MD Unavailable +[phone] Lakshmi Wilhelm-C Unavailable +[phone] Heladio Willoughby MD Primary Care Provider [phone] Heladio Willough[place] MD Unavailable Alissa Perez PA-C Unavailable [phone] Lakshmi Wilhelm-C Unavailable [phone] Encounter Details Date Type Department Care Team (Late st Contact Info) Description 03/05/2024 10:45 AM CDT Lab [facility] [address] [place] [address] Kidney stone Social History Tobacco [...] st Contact Info) Description 06/15/2024 9:30 AM MATERIAL HANDLING EQUIPMENT STEVEDORE Office Visit [address] [phone] Xu Prince MD [address] [place] [address] 708674 06/15/2024 2:30 PM MATERIAL HANDLING EQUIPMENT STEVEDORE Office Visit [facility] [address] [place] [address] Andreea Cruz PA-C [address] [place], [place] 5005168 07/21/2024 4:00 PM MATERIAL HANDLING EQUIPMENT STEVEDORE Office Visit [facility] [address] [place] [phone] [place] [address] [place] [address] documented as of this encounter Procedures [...] - URINE ORDERABLES Fin al Result LABORATORY [facility] [address] [facility] (no room number, 1st floor of clinic) [place] [address], [facility] * (ABNORMAL) UA with Microscopic (03/05/2024 [...] 03/05/2024 9:06 AM CDT LV LABORATORY Specific [place] Urine 1.025 1.003 - 1.035 03/05/2024 9:06 [...] - URINE ORDERABLES Fin al Result LABORATORY [facility] [address] [facility] (no room number, 1st floor of clinic) [place] [address], [facility] * (ABNORMAL) Urine Culture (03/05/2024 7:30 [...] coli Cefazolin LINDA <=4 ug/mL: Susceptible Comment:Cefazolin CA C breakpoints are for the treatment of [...] ORDERA BLES Final Result [facility] IDD LABORATORY [facility] Inf. Diseases Diag. Lab 500 [facility], Room [address] [place] [address] documented in this encounter Visit Diagnoses Diagnosis Kidney stone Calculus of kidney documented in this encounter Care Teams Deep Fat Cook Fry Relationship Specialty [place] [address] [place] [address] PCP - General 03/05/23 Carlos Joyner MD 9 [place], [place] 796165 Urology 12/09/19 Jadon Murray MD [facility] [address] [address] Referring Physician Pediatric Surgery 12/09/19 Maru Villagomez, RN Registered Nurse 12/10/19 Ang Slade MD [address] [place] [address] 081035 Urology 04/24/20 Carlos Joyner MD [address] [place] [address] 854265 Assigned Surgical Provider 12/24/20 Ang Slade MD [address] [place] [address] 212435 Urology 12/18/22 Lakshmi Wilhelm PA-C [address] [place] [address] 58751 Physician College [employer] Dean Urology 02/03/23 [place] [address] [place] [address] Assigned PCP 02/06/23 Alissa Perez PA-C [address] [place] [address] 809625 Physician College [employer] Dean Surgery 09/04/23 Lakshmi Wilhelm PA-C [address] [place] [address] 835055 Physician College [employer] Dean Urology 09/16/23 documented as of this encounter
--- OUTSIDE RECORDS SUMMARY | 2024-04-30 03:02 | XMS_ITS | Encounter Summary ---
Author Organization [place] Address [address] [place] [address] Care Team Providers Care Manager Privacy Name Role Phone Carlos Joyner MD Unavailable [phone] Jadon Murray MD Unavailable [phone] Maru Villagomez RN Unavailable Unavailable Ang Slade MD Unavailable [phone] Carlos Joyner MD Unavailable [phone] Ang Sldae MD Unavailable +[phone] Lakshmi WilhelmC Unavailable +[phone] Heladio Willoughby MD Primary Care Provider [phone] Heladio Willoughby MD Unavailable Alissa Perez PA-C Unavailable [phone] Lakshmi WilhelmC Unavailable [phone] Aidee ValeroC Unavailable [phone] Encounter Details Date Type Department Care Team (Late st Contact Info) Description 04/01/2024 [facility] [address] [place] [address] Aidee Valero PA-C [address] [place] [address] Social History Tobacco Use Types Packs/Day [...] st Contact Info) Description 06/15/2024 9:30 AM CAT SCAN TECHNOLOGIST Office Visit [address] [address] Xu Prince MD [address] [place] [address] 06/15/2024 2:30 PM CAT SCAN TECHNOLOGIST Office Visit [facility] [address] [place] [address] Andreea Cruz, PAEarlC [address] [facility] [place], [place] 9668068 07/21/2024 4:00 PM CAT SCAN TECHNOLOGIST [facility] [address] [place] [phone] [place] [address] [address] [place], [place] 4763768 documented as of this encounter Visit Diagnoses Not on filedocumented in this encounter Care Teams Manager Privacy Relationship Specialty Start [place] [address] [address] [place], [place] [phone] PCP - General 03/05/23 Carlos Joyner MD [address] [place] [address] 824395 Urology 12/09/19 Jadon Murray MD [facility] 2530 [facility] 550 [place], [place] [phone] Referring Physician Pediatric Surgery 12/09/19 Maru Villagomez, RN Registered Nurse 12/10/19 Ang Slade MD [address] [place] [address] Urology 04/24/20 Carlos Joyner MD [address] [place] [address] 676115 Assigned Surgical Provider 12/24/20 Ang Slade MD [address] [place] [address] 394 [place] [address] Urology 12/18/22 Lakshmi Wilhelm PA-C [address] [place] [address] 625355 Physician Diversity Intern Urology 02/03/23 [place] [address] [facility] [place] [address] Assigned PCP 02/06/23 Alissa Perez PA-C [address] [place] [address] Physician Diversity Intern Surgery 09/04/23 Lakshmi Wilhelm PA-C [address] [place] [address] 027[address] Physician Diversity Intern Urology 09/16/23 Aidee Valero PA-C [address] [place] [address] 654245 Assigned Musculoskeletal Provider 04/17/24 Tanisha Marlow 4120 [facility] [address] 03/30/24 documented as of this encounter
--- OUTSIDE RECORDS SUMMARY | 2024-04-30 03:02 | XMS_ITS | Encounter Summary ---
Author Organization [place] Address [address] [place] [address] Care Team Providers Care Ride Attendant Name Role Phone Carlos Joyner MD Unavailable [phone] Jadon Murray MD Unavailable + [phone] Maru Villagomez RN Unavailable Unavailable Ang Slade MD Unavailable +[phone] Carlos Joyner MD Unavailable [phone] Ang Slade MD Unavailable +[phone] Lakshmi WilhelmC Unavailable [phone] Heladio Willoughby MD Primary Care Provider [phone] Heladio Willoughby MD Unavailable Alissa Perez-C Unavailable [phone] Lakshmi WilhelmC Unavailable [phone] Encounter Details Date Type Department Care Team [...] st Contact Info) Description 06/15/2024 9:30 AM MILLWRIGHT SUPERVISOR Office Visit [facility] [address] [place] [phone] Xu Prince MD [address] [place] [address] 402184 06/15/2024 2:30 PM MILLWRIGHT SUPERVISOR Office Visit [facility] [address] [place] [address] Andreea Cruz PA-C [address] [place] [address] 07/21/2024 4:00 PM MILLWRIGHT SUPERVISOR Office Visit [facility] [address] [place] [phone] [place] [address] [place] [address] documented as of this encounter Visit Diagnoses Not on filedocumented in this encounter Care Teams Ride Attendant Relationship Specialty [place] [address] [place] [address] PCP - General 03/05/23 Carlos Joyner MD [address] [place] [address] Urology 12/09/19 Jadon Murray MD [facility] 2530 [facility] 550 [place], [place] [phone] Referring Physician Pediatric Surgery 12/09/19 Maru Villagomez, OTILIO Registered Nurse 12/10/19 Ang Slade MD [address] [place] [address] 742815 Urology 04/24/20 Carlos Joyner MD [address] [place] [address] 023245 Assigned Surgical Provider 12/24/20 Ang Slade MD [address] [place] [address] 08875 Urology 12/18/22 Lakshmi Wilhelm PA-C [address] [place] [address] 876715 Physician Feed Miller Urology 02/03/23 [place] [address] [place] [address] Assigned PCP 02/06/23 Alissa Perez PA-C 500 [place] [address] Physician Feed Miller Surgery 09/04/23 Lakshmi Wilhelm PA-C [address] [place] [address] 81508 Physician Feed Miller Urology 09/16/23 Tanisha Marlow 4120 [facility] [address] 03/30/24 documented as of this encounter
--- OUTSIDE RECORDS SUMMARY | 2024-04-30 03:02 | XMS_ITS | Encounter Summary ---
Author Organization [place] Address [address] [place] [address] 23939 Care Team Providers Care Customer Account Executive Name Role Phone Carlos Joyner MD Unavailable [phone] Jadon Murray MD Unavailable [phone] Maru Villagomez RN Unavailable Unavailable Ang Slade MD Unavailable +[phone] Carlos Joyner MD Unavailable [phone] Ang Slade MD Unavailable [phone] Lakshmi Wilhelm-C Unavailable [phone] Heladio Willoughby MD Primary Care Provider Heladio Willoughby MD Unavailable Alissa Perez PA-C Unavailable [phone] Lakshmi Wilhelm-C Unavailable [phone] Encounter Details Date Type Department Care Team (Late st Contact Info) Description 12/29/2023 Medical Correspondence [facility] Health Information Management 0390 [facility] 180 [place] [address] Scan, Non-Provider Social History Tobacco Use Types [...] st Contact Info) Description 06/15/2024 9:30 AM HEALTH RECORD TECHNICIAN Office Visit [address] [phone] Xu Prince MD [address] [place] [address] 572984 06/15/2024 2:30 PM HEALTH RECORD TECHNICIAN Office Visit [facility] [address] [place] [address] Andreea Cruz PA-C [address] [place], [place] 7019768 07/21/2024 4:00 PM HEALTH RECORD TECHNICIAN Office Visit [facility] [address] [place] [address] [place] [address] [place], [place] 8818568 documented as of this encounter Visit Diagnoses Not on filedocumented in this encounter Care Teams Customer Account Executive Relationship Specialty [place] [address] [address] [place] [phone] PCP - General 03/05/23 Carlos Joyner MD [address] [place] [address] 758625 Urology 12/09/19 Jadon Murray MD [facility] [address] [address] Referring Physician Pediatric Surgery 12/09/19 Maru Villagomez, RN Registered Nurse 12/10/19 Ang Slade MD [address] [place] [address] 61424 Urology 04/24/20 Carlos Joyner MD [address] [place] [address] 49646 Assigned Surgical Provider 12/24/20 Ang Slade MD [address] [place] [address] 311[address] Urology 12/18/22 Lakshmi Wilhelm PA-C [address] [place] [address] 24458 Physician Electrical Engineering Drafting Officer Urology 02/03/23 [place] [address] [place] [address] Assigned PCP 02/06/23 Alissa Perez PA-C [address] [place] [address] Physician Electrical Engineering Drafting Officer Surgery 09/04/23 Lakshmi Wilhelm PA-C [address] [place] [address] 34687455 Physician Electrical Engineering Drafting Officer Urology 09/16/23 documented as of this encounter
--- OUTSIDE RECORDS SUMMARY | 2024-04-30 03:02 | XMS_ITS | Encounter Summary ---
Author Organization [place] Address [address] [place] [address] 03605 Care Team Providers Care Manager Media Relations Name Role Phone Carlos Joyner MD Unavailable [phone] Jadon Murray MD Unavailable [phone] Maru Villagomez RN Unavailable Unavailable Ang Slade MD Unavailable +[phone] Carlos Joyner MD Unavailable +[phone] Ang Slade MD Unavailable [phone] Lakshmi Wilhelm-C Unavailable [phone] Heladio Willoughby MD Primary Care Provider [phone] Heladio Willoughby MD Unavailable Alissa Perez PA-C Unavailable [phone] Lakshmi Wilhelm-C Unavailable [phone] Aidee Valero PA-C Unavailable +[phone] Encounter Details Date Type Department Care Team (Late st Contact Info) Description 08/18/2023 [facility] [address] [place] [address] Analisa Conner Social History Tobacco Use [...] st Contact Info) Description 06/15/2024 9:30 AM GAMB CUTTER Office Visit [address] [address] Xu Prince MD [address] [place] [address] 531774 06/15/2024 2:30 PM GAMB CUTTER Office Visit [facility] [address] [place] [address] Andreea Cruz PA-C [address] [place], [place] 4930768 07/21/2024 4:00 PM GAMB CUTTER [facility] [address] [place] [place] [phone] [place] [address] [address] [id number] documented as of this encounter Visit Diagnoses Not on filedocumented in this encounter Care Teams Manager Media Relations Relationship Specialty [place] [address] [address] [phone] PCP - General 03/05/23 Carlos Joyner MD [address] [place] [address]69 Urology 12/09/19 Jadon Murray MD [facility] [address] [address] Referring Physician Pediatric Surgery 12/09/19 Maru Villagomez, OTILIO Registered Nurse 12/10/19 Ang Slade MD [address] [place] [address] Urology 04/24/20 Carlos Joyner MD [address] [place] [address] 16973 Assigned Surgical Provider 12/24/20 Ang Slade MD [address] [address] Urology 12/18/22 Lakshmi Wilhelm PA-C [address] [place] [address] 717595 Physician Production Editor Urology 02/03/23 [place] [address] [place] [address] Assigned PCP 02/06/23 Alissa Perez PA-C [address] [place] [address] 222155 Physician Production Editor Surgery 09/04/23 Lakshmi Wilhelm PA-C [address] [place] [address] 143405 Physician Production Editor Urology 09/16/23 Aidee Valero PA-C [address] [place] [address] 587275 Assigned Musculoskeletal Provider 04/17/24 Tanisha Marlow 4120 [facility] [address] 03/30/24 documented as of this encounter
--- OUTSIDE RECORDS SUMMARY | 2024-04-30 03:02 | XMS_ITS | Encounter Summary ---
Author Organization [place] Address [address] [place] [address] 86389 Care Team Providers Care Steel Worker Name Role Phone Carlos Joyner MD Unavailable [phone] Jadon Murray MD Unavailable + [phone] Maru Villagomez RN Unavailable Unavailable Ang Slade MD Unavailable +[phone] Carlos Joyner MD Unavailable [phone] Ang Slade MD Unavailable +[phone] Lakshmi WilhelmC Unavailable +[phone] Heladio Willoughby MD Primary Care Provider [phone] Heladio Willoughby MD Unavailable Alissa Perez-C Unavailable [phone] Lakshmi WilhelmC Unavailable [phone] Encounter Details Date Type Department Care Team [...] st Contact Info) Description 06/15/2024 9:30 AM PICKLER HELPER Office Visit [facility] [address] [place] [phone] Xu Prince MD [address] [place] [address] 218794 06/15/2024 2:30 PM PICKLER HELPER Office Visit [facility] [address] [place] [address] Andreea Cruz PA-C [address] [place] [address] 07/21/2024 4:00 PM PICKLER HELPER Office Visit [facility] [address] [place] [phone] [place] [address] [place] [address] documented as of this encounter Visit Diagnoses Not on filedocumented in this encounter Care Teams Steel Worker Relationship Specialty Start [place] [address] [place] [address] PCP - General 03/05/23 Carlos Joyner MD [address] [place] [address] 70083 Urology 12/09/19 Jadon Murray MD [facility] [address] [facility] 550 [place], [place] [phone] Referring Physician Pediatric Surgery 12/09/19 Maru Villagomez, OTILIO Registered Nurse 12/10/19 Ang Slade MD [address] [place] [address] 315205 Urology 04/24/20 Carlos Joyner MD [address] [place] [address] 604885 Assigned Surgical Provider 12/24/20 Ang Slade MD [address] [place] [address] 21732 Urology 12/18/22 Lakshmi Wilhelm PA-C [address] [place] [address] 739995 Physician Area Relief Pilot Urology 02/03/23 [place] [address] [place] [address] Assigned PCP 02/06/23 Alissa Perez PA-C [address] [place] [address] 77277 Physician Area Relief Pilot Surgery 09/04/23 Lakshmi Wilhelm PA-C [address] [place] [address] 82569 Physician Area Relief Pilot Urology 09/16/23 documented as of this encounter
--- OUTSIDE RECORDS SUMMARY | 2024-04-30 03:02 | XMS_ITS | Encounter Summary ---
Author Organization [facility] Address [address] [place] [address] Care Team Providers Care Non Profit Director Name Role Phone Carlos Joyner MD Unavailable [phone] Jadon Murray MD Unavailable [phone] Maru Villagomez RN Unavailable Unavailable Ang Slade MD Unavailable [phone] Carlos Joyner MD Unavailable [phone] Ang Slade MD Unavailable [phone] Lakshmi Wilhelm PA-C Unavailable [phone] Heladio Willoughby MD Primary Care Provider [phone] Heladio Willoughby MD Unavailable Alissa Perez PA-C Unavailable [phone] Lakshmi Wilhelm PA-C Unavailable Reason for Visit * Reason Comments Consult Patient has spina bi fida.need to establish care Encounter Details Date Type Department Care Team (Latest Contact Info) Description 03/30/2024 2:00 PM HOUSING OFFICER Office Visit [facility] [address] 4th [place] [address] Aidee Valero PA-C [address] [place] [address] History of spinal fusion (Primary Dx); [...] 61.2 kg (135 lb) 03/30/2024 2:01 PM HOUSING OFFICER Height 147.3 cm (4' 10) 03/30/2024 2:01 PM HOUSING OFFICER Body Mass Index 28.22 03/30/2024 2:01 PM HOUSING OFFICER documented in this encounter Progress Notes * [...] bifida. Presents today with her nurse and rn case mgr/guardian (Tanisha). Previously managed for spina bifida care with [facility]; is working on transitioning care to adult centers since she is 23. She underwent spinal fusion at [facility] in April 2011. Se[address] 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 Has seen by Colon Surgeon here at the [facility] for neurogenic bowel and perianal irritation. She follows with primary care provider Dr. Heladio Willoughby here at the [facility]. They have a PM&R team who manages wheelchair adjustments. Today, history is provided by Laina and supplemented by Tanisha her guardian/ rn case mgr. Laina denies back pain, nerve symptoms, sitting [...] vertebrectomy with L1-3 fusion (Dr. Kulwant Alexandra, [facility]) for lumbar kyphosis with myelodysplasia 05/01/2011 - [id number] posterior spinal fusion (?doctor, [facility]) for lumbar kyphosis [?Instrumentation] DOMONIQUE Scores: [...] and extension, wrist flexion and extension. 4/5 maternity nurse strength bilaterally. 3/5 strength with interossei bilaterally. [...] T12 paraplegia, neurogenic bowel/bladder, history of PISF [id number]. Stable PJK, stable haloing bilateral pelvic instrumentation. No complaints or concerns today Plan: Patient here to establish care with spine surgery team, transitioning care from [facility]. Currently without any complaints. Reviewed today's XR [...] Mujica)MAINE Orthopaedic Spine Surgery Dept Orthopaedic Surgery, [facility] Physicians [facility] 35 minutes spent on the date of [...] to be present in the completed chart. ING OFFICER documented in this encounter Plan of Treatment Upcoming Encounters Date Type Department Care Team (Late st Contact Info) Description 06/15/2024 9:30 AM HOUSING OFFICER Office Visit [address] [address] Xu Prince MD [address] [place] [address] 803194 06/15/2024 2:30 PM HOUSING OFFICER Office Visit [facility] [address] [place] [address] Andreea Cruz PA-C [address] [place], [place] 2307168 07/21/2024 4:00 PM HOUSING OFFICER Office Visit [facility] [address] [place] [phone] [place] [address] [address] [place] [id number] documented as of this encounter Visit Diagnoses Diagnosis History of spinal fusion- Primary Arthrodesis status Thoracic spina bifida, unspecified hydrocephalus presence (H) documented in this encounter Care Teams Non Profit Director Relationship Specialty [place] [address] [address] [place] [id number] PCP - General 03/05/23 Carlos Joyner MD [address] [place] [address] 151125 Urology 12/09/19 Jadon Murray MD [facility] 2530 [facility] [address] [place] [address] Referring Physician Pediatric Surgery 12/09/19 Maru Villagomez, RN Registered Nurse 12/10/19 Ang Slade MD [address] [place] [address] 00687 Urology 04/24/20 Carlos Joyner MD [address] [place] [address] 630175 Assigned Surgical Provider 12/24/20 Ang Slade MD [address] [address] Urology 12/18/22 Lakshmi Wilhelm PA-C [address] [place] [address] Physician Media Center Assistant Urology 02/03/23 [place] [address] [place] [address] Assigned PCP 02/06/23 Alissa Perez PA-C [address] [place] [address] Physician Media Center Assistant Surgery 09/04/23 Lakshmi Wilhelm PA-C [address] [place] [address] Physician Media Center Assistant Urology 09/16/23 Tanisha Marlow [address] [facility] [address] 03/30/24 documented as of this encounter
--- OUTSIDE RECORDS SUMMARY | 2024-04-30 03:02 | XMS_ITS | Encounter Summary ---
Author Organization [facility] Address [address] [place] [address] Care Team Providers Care Foundry Worker Name Role Phone Carlos Joyner MD Unavailable [phone] Jadon Murray MD Unavailable [phone] Maru Villagomez RN Unavailable Unavailable Ang Slade MD Unavailable [phone] Carlos Joyner MD Unavailable [phone] Ang Slade MD Unavailable [phone] Lakshmi Wilhelm-C Unavailable [phone] Heladio Willoughby MD Primary Care Provider [phone] Heladio Willoughby MD Unavailable Alissa Perez PA-C Unavailable [phone] Lakshmi Wilhelm-C Unavailable [phone] Encounter Details Date Type Department Care Team (Late st Contact Info) Description 03/02/2024 Ifeanyi Medical Advice [facility] [address] [place] [address] Carlos Joyner MD [address] [place] [address] Recurrent UTI (Primary Dx) Social History [...] st Contact Info) Description 06/15/2024 9:30 AM TIRE REPAIRER Office Visit [address] [place] [address] Xu Prince MD [address] [address] [address] 06/15/2024 2:30 PM TIRE REPAIRER Office Visit [facility] [address] [place] [phone] Andreea Cruz, PAEarlC [address] [place], [place] [phone] 07/21/2024 4:00 PM TIRE REPAIRER Office Visit [facility] [address] [address] [phone] [place] [address] [address] [place] [id number] documented as of this encounter Visit Diagnoses Diagnosis Recurrent UTI- Primary Urinary tract infection, site not specified documented in this encounter Care Teams Foundry Worker Relationship Specialty Start [place] [address] [place] [id number] PCP - General 03/05/23 Carlos Joyner MD [address] [place] [address] 463[address] Urology 12/09/19 Jadon Murray MD [facility] 2530 [facility] 550 [place] [address] Referring Physician Pediatric Surgery 12/09/19 Maru Villagomez, RN Registered Nurse 12/10/19 Ang Slade MD [address] [place] [address] Urology 04/24/20 Carlos Joyner MD [address] [place] [address] Assigned Surgical Provider 12/24/20 Ang Slade MD [address] [place] [address] 239[address] Urology 12/18/22 Lakshmi Wilhelm PA-C 909 [place], [place] 300325 Physician Forest Ranger Urology 02/03/23 [place] [address] [place] [address] Assigned PCP 02/06/23 Alissa Perez PA-C [address] [place] [address] 137785 Physician Forest Ranger Surgery 09/04/23 Lakshmi Wilhelm PA-C 909 [place], [place] 464165 Physician Forest Ranger Urology 09/16/23 documented as of this encounter
--- OUTSIDE RECORDS SUMMARY | 2024-04-30 03:02 | XMS_ITS | Encounter Summary ---
Author Organization [facility] Address [address] [place] [address] Care Team Providers Care Rehabilitation Physician Name Role Phone Carlos Joyner MD Unavailable [phone] Jadon Murray MD Unavailable [phone] Maru Villagomez RN Unavailable Unavailable Ang Slade MD Unavailable [phone] Carlos Joyner MD Unavailable [phone] Ang Slade MD Unavailable [phone] Lakshmi Wilhelm PA-C Unavailable Heladio Willoughby MD Primary Care Provider [phone] Heladio Willoughby MD Unavailable Alissa Perez PA-C Unavailable [phone] Lakshmi Wilhelm PA-C Unavailable Reason for Visit * Diagnostic Imaging XR (Routine) - Pending Review Specialty Diagnoses / Procedures Referred By Charli t Referred To Contact Radiology. Diagnoses Thoracic spina bifida, unspecified hydrocephalus presence (H) Procedures XR Spine Complete Scoliosis 2 Views XR Spine Complete Scoliosis 2 Views Aidee Valero PA-C 909 [place] [address] Phone: tel: fax: Referral ID Status Reason Start Date Expiration Date V isits Requested Visits Authorized [id number] Pending Review 03/23/2024 03/23/2025 1 1 Encounter Details Date Type Department Care Team (Latest Contact Info) Description 03/30/2024 1:40 PM CLINIC PHYSICIAN Ancillary Procedure [facility] [place] [address] [place] [address] 4th [place] [address] Aidee Valero PA-C [address] [place] [address] Thoracic spina bifida, unspecified hydrocephalus presence (H) [...] st Contact Info) Description 06/15/2024 9:30 AM CLINIC PHYSICIAN Office Visit [facility] [place] [address] [place] [address] Xu Prince MD [address] [address] 06/15/2024 2:30 PM CLINIC PHYSICIAN [facility] [address] [place] [address] Andreea Cruz PA-C [address] [place] [address] 07/21/2024 4:00 PM CLINIC PHYSICIAN [facility] [address] [place] [address] [place] [address] [place] [address] documented as of this encounter Procedures Procedure Name Priority Date/Time Associated Diagnosis Comments XR SPINE COMPLETE SCOLIOSIS 2 VIEWS Routine 03/30/2024 1:38 PM CLINIC PHYSICIAN Thoracic spina bifida, unspecified hydrocephalus presence (H) documented in this encounter Results * XR Spine Complete Scoliosis 2 Views (03/30/2024 1:38 PM CLINIC PHYSICIAN) Anatomical Region Laterality Modality Spine Computed Radiogr aphy Impressions 03/31/2024 1:57 PM CLINIC PHYSICIAN Impression: 1. Postoperative changes of T10 through pelvis fusion without evidence of hardware complication. 2. No substantial coronal curvature of the spine. 3. Negative global coronal imbalance. 4. Positive global sagittal imbalance. MILLA CHOI DO Narrative 03/31/2024 1:57 PM CLINIC PHYSICIAN Exam: Full spine radiographs using EOS History: [...] spine. Negative global coronal imbalance. Sagittal Vertical Schurz (A vertical line drawn from the center [...] spine. Negative global coronal imbalance. Sagittal Vertical Schurz (A vertical line drawn from the center [...] (H) documented in this encounter Care Teams Rehabilitation Physician Relationship Specialty [place] [address] [place] [address] PCP - General 03/05/23 Carlos Joyner MD [address] [place] [address] 638585 Urology 12/09/19 Jadon Murray MD [facility] [address] [id number] Referring Physician Pediatric Surgery 12/09/19 Maru Villagomez, RN Registered Nurse 12/10/19 Ang Slade MD [address] [place] [address] Urology 04/24/20 Carlos Joyner MD [address] [place] [address] 26[address] Assigned Surgical Provider 12/24/20 Ang Slade MD [address] [place] [address] Urology 12/18/22 Lakshmi Wilhelm PA-C [address] [place] [address] Physician Hot Head Machine Operator Urology 02/03/23 [place] [address] [facility] [place] [address] Assigned PCP 02/06/23 Alissa Perez PA-C [address] [place] [address] 052875 Physician Hot Head Machine Operator Surgery 09/04/23 Lakshmi Wilhelm PA-C 909 [place] [address] Physician Hot Head Machine Operator Urology 09/16/23 Tanisha Marlow 4120 [facility] [address] 03/30/24 documented as of this encounter
--- OUTSIDE RECORDS SUMMARY | 2024-04-30 03:02 | XMS_ITS | Encounter Summary ---
Author Organization [facility] Address [address] [place] [address] Care Team Providers Care Sales Executive Name Role Phone Carlos Joyner MD Unavailable [phone] Jadon Murray MD Unavailable Maru Villagomez RN Unavailable Unavailable Ang Slade MD Unavailable [phone] Carlos Joyner MD Unavailable [phone] Ang Slade MD Unavailable Lakshmi Wilhelm PA-C Unavailable Heladio Willoughby MD Primary Care Provider [phone] Heladio Willoughby MD Unavailable Alissa Perez PA-C Unavailable [phone] Lakshmi Wilhelm PA-C Unavailable Reason for Referral * Diagnostic Imaging XR (Routine) - Pending Review Specialty Diagnoses / Procedures Referred By Charli t Referred To Contact Radiology. Diagnoses Thoracic spina bifida, unspecified hydrocephalus presence (H) Procedures XR Spine Complete Scoliosis 2 Views XR Spine Complete Scoliosis 2 Views Aidee Valero PA-C 904 [place] [address] Phone: tel: fax: Referral ID Status Reason Start Date Expiration Date V isits Requested Visits Authorized [id number] Pending Review 03/23/2024 03/23/2025 1 1 Encounter Details Date Type Department Care Team (Late st Contact Info) Description 03/23/2024 Orders Only [facility] [address] 4th [place] [address] Aidee Valero PA-C [address] [place] [address] Thoracic spina bifida, unspecified hydrocephalus presence [...] st Contact Info) Description 06/15/2024 9:30 AM COLORED LEATHER SETTER Office Visit [facility] [address] [place] [phone] Xu Prince MD [address] [place] [address] 06/15/2024 2:30 PM COLORED LEATHER SETTER [facility] [address] [place] [address] Andreea Cruz PAEarlC [address] [place] [address] 07/21/2024 4:00 PM COLORED LEATHER SETTER [facility] [address] [place] [address] [place] [address] [place] [address] documented as of this encounter Results * XR Spine Complete Scoliosis 2 Views (03/30/2024 1:38 PM COLORED LEATHER SETTER) Anatomical Region Laterality Modality Spine Computed Radiogr aphy Impressions 03/31/2024 1:57 PM COLORED LEATHER SETTER Impression: 1. Postoperative changes of T10 through pelvis fusion without evidence of hardware complication. 2. No substantial coronal curvature of the spine. 3. Negative global coronal imbalance. 4. Positive global sagittal imbalance. MILLA CHOI DO Narrative 03/31/2024 1:57 PM COLORED LEATHER SETTER Exam: Full spine radiographs using EOS History: [...] spine. Negative global coronal imbalance. Sagittal Vertical Kingston (A vertical line drawn from the center [...] spine. Negative global coronal imbalance. Sagittal Vertical [place] (A vertical line drawn from the center [...] (H) documented in this encounter Care Teams Sales Executive Relationship Specialty [place] [address] [place] [place], [place] [phone] PCP - General 03/05/23 Carlos Joyner MD [address] [place] [address] Urology 12/09/19 Jadon Murray MD [facility] [address] [address] Referring Physician Pediatric Surgery 12/09/19 Maru Villagomez, RN Registered Nurse 12/10/19 Ang Slade MD [address] [place] [address] Urology 04/24/20 Carlos Joyner MD [address] [place] [address] Assigned Surgical Provider 12/24/20 Ang Slade MD [address] [place] [address] Urology 12/18/22 Lakshmi Wilhelm PA-C [address] [place] [address] 524915 Physician Maintenance Technician Urology 02/03/23 [place] [address] [place] [address] Assigned PCP 02/06/23 Alissa Perez PA-C [address] [place] [address] Physician Maintenance Technician Surgery 09/04/23 Lakshmi Wilhelm PA-C [address] [place] [address] Physician Maintenance Technician Urology 09/16/23 documented as of this encounter
--- OUTSIDE RECORDS SUMMARY | 2024-04-30 03:02 | XMS_ITS | Encounter Summary ---
Author Organization [place] Address [address] [place] [address] Care Team Providers Care Preschool Teacher Aide Name Role Phone Carlos Joyner MD Unavailable [phone] Jadon Murray MD Unavailable [phone] Maru Villagomez RN Unavailable Unavailable Ang Slade MD Unavailable [phone] Carlos Joyner MD Unavailable [phone] Ang Slade MD Unavailable [phone] Lakshmi WilhelmC Unavailable [phone] Heladio Willoughby MD Primary Care Provider [phone] Heladio Willoughby MD Unavailable Alissa Perez-C Unavailable [phone] Lakshmi WilhelmC Unavailable [phone] Encounter Details Date Type Department Care Team [...] st Contact Info) Description 06/15/2024 9:30 AM ISOTOPE HYDROLOGIST Office Visit [facility] [address] [place] [phone] Xu Prince MD [address] [place] [address] 191514 06/15/2024 2:30 PM ISOTOPE HYDROLOGIST Office Visit [facility] [address] [place] [address] Andreea Cruz PA-C [address] [place] [address] 07/21/2024 4:00 PM ISOTOPE HYDROLOGIST Office Visit [facility] [address] [place] [phone] [place] [address] [place] [address] documented as of this encounter Visit Diagnoses Not on filedocumented in this encounter Care Teams Preschool Teacher Aide Relationship Specialty [place] [address] [place] [address] PCP - General 03/05/23 Carlos Joyner MD [address] [place] [address] Urology 12/09/19 Jadon Murray MD [facility] 2530 [facility] 550 [place], [place] [phone] Referring Physician Pediatric Surgery 12/09/19 Maru Villagomez, OTILIO Registered Nurse 12/10/19 Ang Slade MD [address] [place] [address] 119355 Urology 04/24/20 Carlos Joyner MD [address] [place] [address] 583225 Assigned Surgical Provider 12/24/20 Ang Slade MD [address] [place] [address] Urology 12/18/22 Lakshmi Wilhelm PA-C [address] [place] [address] 451225 Physician Client Development Manager Urology 02/03/23 [place] [address] [place] [address] Assigned PCP 02/06/23 Alissa Perez PA-C [address] [place] [address] Physician Client Development Manager Surgery 09/04/23 Lakshmi Wilhelm PA-C [address] [place] [address] Physician Client Development Manager Urology 09/16/23 documented as of this encounter
--- OUTSIDE RECORDS SUMMARY | 2024-04-30 03:02 | XMS_ITS | Encounter Summary ---
Author Organization [facility] Address [address] [place] [address] Care Team Providers Care Secondary School Teacher Name Role Phone Carlos Joyner MD Unavailable [phone] Jadon Murray MD Unavailable [phone] Maru Villagomez RN Unavailable Unavailable Ang Slade MD Unavailable [phone] Carlos Joyner MD Unavailable [phone] Ang Slade MD Unavailable [phone] Lakshmi Wilhelm PA-C Unavailable Heladio Willoughby MD Primary Care Provider [phone] Heladio Willoughby MD Unavailable Alissa Perez PA-C Unavailable [phone] Lakshmi Wilhelm PA-C Unavailable [phone] Aidee Valero PA-C Unavailable [phone] Encounter Details Date Type Department Care Team (Late st Contact Info) Description 09/18/2023 [facility] [address] [place] [address] Carlos Joyner MD [address] [place] [address] Social History Tobacco Use Types Packs/Day [...] st Contact Info) Description 06/15/2024 9:30 AM ASSISTANT FILM EDITOR Office Visit [address] [address] Xu Prince MD [address] [place] [address] 06/15/2024 2:30 PM ASSISTANT FILM EDITOR Office Visit [facility] [address] [place] [address] Andreea Cruz, PAEarlC [address] [facility] [place], [place] [phone] 07/21/2024 4:00 PM ASSISTANT FILM EDITOR Office Visit [facility] [address] [facility] [place] [phone] [place] [address] [address] [place], [place] [phone] documented as of this encounter Visit Diagnoses Not on filedocumented in this encounter Care Teams Secondary School Teacher Relationship Specialty [place] [address] [facility] [place], [place] [phone] PCP - General 03/05/23 Carlos Joyner MD [address] [place] [address] 358795 Urology 12/09/19 Jadon Murray MD [facility] 2530 [facility] 550 [place] [address] Referring Physician Pediatric Surgery 12/09/19 Maru Villagomez, OTILIO Registered Nurse 12/10/19 Ang Slade MD [address] [place] [address] Urology 04/24/20 Carlos Joyner MD [address] [place] [address] 486775 Assigned Surgical Provider 12/24/20 Ang Slade MD [address] [place] [address] Urology 12/18/22 Lakshmi Wilhelm PA-C [address] [place] [address] 735695 Physician Sponge Fisherman Urology 02/03/23 [place] [address] [facility] [address] Assigned PCP 02/06/23 Alissa Perez PA-C [address] [place] [address] Physician Sponge Fisherman Surgery 09/04/23 Lakshmi Wilhelm PA-C [address] [place] [address] Physician Sponge Fisherman Urology 09/16/23 Aidee Valero PA-C [address] [place] [address] 105715 Assigned Musculoskeletal Provider 04/17/24 Tanisha Marlow 4120 [facility] [address] 03/30/24 documented as of this encounter
--- OUTSIDE RECORDS SUMMARY | 2024-04-30 03:03 | XMS_ITS | Encounter Summary ---
Author Organization [place] Address [address] [place] [address] Care Team Providers Care Nut Steamer Name Role Phone Carlos Joyner MD Unavailable +[phone] Jadon Murray MD Unavailable [phone] Maru Villagomez RN Unavailable Unavailable Ignacia Duran MD Primary Care Provider [phone] Ang Slade MD Unavailable +[phone] Carlos Joyner MD Unavailable +[phone] Annalise Orta PA-C Unavailable +[phone] Ang Slade MD Unavailable +[phone] Lakshmi Wilhelm-C Unavailable +[phone] Heladio Willoughby MD Primary Care Provider [phone] Heladio Willoughby MD Unavailable Alissa Perez PA-C Unavailable [phone] Lakshmi Wilhelm PA-C Unavailable +[phone] Aidee Valero PA-C Unavailable +[phone] Encounter Details Date Type Department Care Team (Late st Contact Info) Description 12/05/2021 [facility] [address] [address] [facility] Social History Tobacco Use Types Packs/Day Years [...] st Contact Info) Description 06/15/2024 9:30 AM SWING SAW OPERATOR Office Visit [facility] [address] [place] [address] Xu Prince MD [address] [place] [address] [phone] 06/15/2024 2:30 PM SWING SAW OPERATOR Office Visit [facility] [address] [place] [address] Andreea Cruz PA-C [address] [place] [address] 07/21/2024 4:00 PM SWING SAW OPERATOR Office Visit [facility] [address] [place] [address] [place] [address] [place], [place] 7651968 documented as of this encounter Visit Diagnoses Not on filedocumented in this encounter Additional Health Concerns Infection Onset Date Last Indicated Resolved Time MRSA Comment:Added from external infection. Pt has had Staph infections but never MRSA from Care everywhere chart review. Removing MRSA 9.14.23 06/17/2019 02/06/2023 9:41 AM C DT documented as of this encounter Care Teams Nut Steamer Relationship Specialty Start Date End Date Ignacia Duran MD PCP - General Pediatrics 01/20/20 03/04/23 [place] [address] [facility] [place] [address] PCP - General 03/05/23 Carlos Joyner MD 9 [place] [address] Urology 12/09/19 Jadon Murray MD [facility] [address] [address] Referring Physician Pediatric Surgery 12/09/19 Maru Villagomez, RN Registered Nurse 12/10/19 Ang Slade MD [address] [address] Urology 04/24/20 Carlos Joyner MD [address] [place] [address]683 Assigned Surgical Provider 12/24/20 Annalise Orta PA-C 5200 [place] [address] Assigned Cancer Care Provider 05/13/21 11/01/22 Ang Slade MD [address] [address] Urology 12/18/22 Lakshmi Wilhelm PA-C [address] [place] [address] Physician Packer Inspector Urology 02/03/23 [place] [address] [place] [address] Assigned PCP 02/06/23 Alissa Perez PA-C [address] [place] [address] Physician Packer Inspector Surgery 09/04/23 Lakshmi Wilhelm PA-C [address] [place] [address] Physician Packer Inspector Urology 09/16/23 Aidee Valero PA-C [address] [place] [address] Assigned Musculoskeletal Provider 04/17/24 Tanisha Marlow 4120 [facility] [address] 03/30/24 documented as of this encounter
--- OUTSIDE RECORDS SUMMARY | 2024-04-30 03:03 | XMS_ITS | Encounter Summary ---
Author Organization [place] Address [address] [place] [address] Care Team Providers Care Plate Printer Name Role Phone Carlos Joyner MD Unavailable +[phone] Jadon Murray MD Unavailable +[phone] Maru Villagomez RN Unavailable Unavailable Ignacia Duran MD Primary Care Provider Ang Slade MD Unavailable +[phone] Carlos Joyner MD Unavailable +[phone] Annalise Orta PA-C Unavailable +[phone] Ang Slade MD Unavailable +[phone] Lakshmi Wilhelm PA-C Unavailable [phone] Heladio Willoughby MD Primary Care Provider [phone] Heladio Willoughby MD Unavailable Alissa Perez PA-C Unavailable [phone] Lakshmi Wilhelm PA-C Unavailable [phone] Aidee Valero PA-C Unavailable +[phone] Encounter Details Date Type Department Care Team (Late st Contact Info) Description 07/31/2021 [facility] [address] 5th [place] [address] Makenzie Drummond, RN Social History [...] st Contact Info) Description 06/15/2024 9:30 AM SUBSTANCE ABUSE SERVICES DIRECTOR Office Visit [facility] [address] [place] [phone] Xu Prince MD [address] [place] [address] [phone] 06/15/2024 2:30 PM SUBSTANCE ABUSE SERVICES DIRECTOR [facility] [address] [place] [address] Andreea Cruz, PA-C [address] [place], [place] [phone] 07/21/2024 4:00 PM SUBSTANCE ABUSE SERVICES DIRECTOR [facility] [address] [place] [address] [place] [address] [place] [address] documented as of this encounter Visit Diagnoses Not on filedocumented in this encounter Additional Health Concerns Infection Onset Date Last Indicated Resolved Time MRSA Comment:Added from external infection. Pt has had Staph infections but never MRSA from Care everywhere chart review. Removing MRSA 02.06.23 06/17/2019 02/06/2023 9:41 AM C DT documented as of this encounter Care Teams Plate Printer Relationship Specialty Start Date End Date Ignacia Duran MD PCP - General Pediatrics 01/20/20 03/04/23 [place] [address] [place] [address] PCP - General 03/05/23 Carlos Joyner MD [address] [place] [address] Urology 12/09/19 Jadon Murray MD [facility] [address] [address] Referring Physician Pediatric Surgery 12/09/19 Maru Villagomez, RN Registered Nurse 12/10/19 Ang Slade MD [address] [place] [address] 474285 Urology 04/24/20 Carlos Joyner MD [address] [place] [address] 794595 Assigned Surgical Provider 12/24/20 Annalise Orta PA-C 5200 [place] [address] Assigned Cancer Care Provider 05/13/21 11/01/22 Ang Slade MD [address] 942885 Urology 12/18/22 Lakshmi Wilhelm PA-C [address] [place] [address] 226045 Physician Neurologist Urology 02/03/23 [place] [address] [place] [address] Assigned PCP 02/06/23 Alissa Perez PA-C [address] [place] [address] Physician Neurologist Surgery 09/04/23 Lakshmi Wilhelm PA-C [address] [place] [address] 968335 Physician Neurologist Urology 09/16/23 Aidee Valero PA-C [address] [place] [address] 759945 Assigned Musculoskeletal Provider 04/17/24 Tanisha Marlow 4120 [facility] [address] 03/30/24 documented as of this encounter
--- OUTSIDE RECORDS SUMMARY | 2024-04-30 03:03 | XMS_ITS | Encounter Summary ---
Author Organization [place] Address [address] [place] [address] Care Team Providers Care Emery Wheel Worker Name Role Phone Carlos Joyner MD Unavailable +[phone] Jadon Murray MD Unavailable [phone] Maru Villagomez RN Unavailable Unavailable Ignacia Duran MD Primary Care Provider Ang Slade MD Unavailable +[phone] Carlos Joyner MD Unavailable +[phone] Annalise Orta PA-C Unavailable +[phone] Ang Slade MD Unavailable [phone] Lakshmi Wilhelm PA-C Unavailable [phone] Heladio Willoughby MD Primary Care Provider [phone] Heladio Willoughby MD Unavailable Alissa Perez PA-C Unavailable [phone] Lakshmi Wilhelm PA-C Unavailable [phone] Aidee Valero PA-C Unavailable [phone] Encounter Details Date Type Department Care Team (Late st Contact Info) Description 07/19/2021 [facility] [place] 20[address]59 [facility] 4th [place] [address] Shyann Rehman Social History Tobacco [...] COVID-19? No / Unsure 06/19/2021 11:16 AM ESTHETICIAN SPA documented as of this encounter Plan of Treatment Upcoming Encounters Date Type Department Care Team (Late st Contact Info) Description 06/15/2024 9:30 AM ESTHETICIAN SPA Office Visit [facility] [address] [facility] [phone] Xu Prince MD [address] [place] [address] 425444 06/15/2024 2:30 PM ESTHETICIAN SPA [facility] [address] [place] [address] Andreea Cruz PA-C [address] [place] [address] 07/21/2024 4:00 PM ESTHETICIAN SPA [facility] [address] [place] [address] [place] [address] [place] [address] documented as of this encounter Visit Diagnoses Not on filedocumented in this encounter Additional Health Concerns Infection Onset Date Last Indicated Resolved Time MRSA Comment:Added from external infection. Pt has had Staph infections but never MRSA from Care everywhere chart review. Removing MRSA 9.14.23 06/17/2019 02/06/2023 9:41 AM C DT documented as of this encounter Care Teams Emery Wheel Worker Relationship Specialty Start Date End Date Ignacia Duran MD PCP - General Pediatrics 01/20/20 03/04/23 [place] [address] [facility] [place] [address] PCP - General 03/05/23 Carlos Joyner MD [address] [place] [address] Urology 12/09/19 Jadon Murray MD [facility] [address] [address] Referring Physician Pediatric Surgery 12/09/19 Maru Villagomez, OTILIO Registered Nurse 12/10/19 Ang Slade MD [address] [place] [address] Urology 04/24/20 Carlos Joyner MD [address] [place] [address] Assigned Surgical Provider 12/24/20 Annalise Orta PA-C 5200 [place] [address] Assigned Cancer Care Provider 05/13/21 11/01/22 Ang Slade MD [address] [place] [address] 572145 Urology 12/18/22 Lakshmi Wilhelm PA-C [address] [place] [address] 100665 Physician Sugar Mixer Urology 02/03/23 [place] [address] [place] [address] Assigned PCP 02/06/23 Alissa Perez PA-C [address] [place] [address] 404635 Physician Sugar Mixer Surgery 09/04/23 Lakshmi Wilhelm PA-C [address] [place] [address] 694375 Physician Sugar Mixer Urology 09/16/23 Aidee Valero PA-C 909 [place], [place] 184065 Assigned Musculoskeletal Provider 04/17/24 Tanisha Marlow 4120 [facility] [address] 03/30/24 documented as of this encounter
--- OUTSIDE RECORDS SUMMARY | 2024-04-30 03:03 | XMS_ITS | Encounter Summary ---
Author Organization [place] Address [address] [place] [address] Care Team Providers Care Frit Mixer Name Role Phone Carlos Joyner MD Unavailable [phone] Jadon Murray MD Unavailable [phone] Maru Villagomez RN Unavailable Unavailable Ignacia Duran MD Primary Care Provider [phone] Ang Slade MD Unavailable [phone] Carlos Joyner MD Unavailable +[phone] Annalise Orta PA-C Unavailable [phone] Ang Sldae MD Unavailable [phone] Lakshmi Wilhelm-C Unavailable [phone] Heladio Willoughby MD Primary Care Provider [phone] Heladio Willoughby MD Unavailable Alissa Perez PA-C Unavailable [phone] Lakshmi Wilhelm PA-C Unavailable [phone] Aidee Valero PA-C Unavailable [phone] Encounter Details Date Type Department Care Team (Late st Contact Info) Description 11/14/2021 [facility] Urology Clinic [address] [place] [address] Analisa Palacio, RN Social History [...] st Contact Info) Description 06/15/2024 9:30 AM HEDDLER TIER Office Visit [facility] [address] [place] [phone] Xu Prince MD [address] [place] [address] [phone] 06/15/2024 2:30 PM HEDDLER TIER Office Visit [facility] [address] [place] [address] Andreea Cruz PA-C [address] [place] [address] 07/21/2024 4:00 PM HEDDLER TIER Office Visit [facility] [address] [place] [address] [place] [address] [place], [place] 6445568 documented as of this encounter Visit Diagnoses Not on filedocumented in this encounter Additional Health Concerns Infection Onset Date Last Indicated Resolved Time MRSA Comment:Added from external infection. Pt has had Staph infections but never MRSA from Care everywhere chart review. Removing MRSA 9.14.23 06/17/2019 02/06/2023 9:41 AM C DT documented as of this encounter Care Teams Frit Mixer Relationship Specialty Start Date End Date Ignacia Duran MD PCP - General Pediatrics 01/20/20 03/04/23 [place] [address] [facility] [place] [address] PCP - General 03/05/23 Carlos Joyner MD [address] [place] [address] Urology 12/09/19 Jadon Murray MD [facility] [address] [address] Referring Physician Pediatric Surgery 12/09/19 Maru Villagomez, RN Registered Nurse 12/10/19 Ang Slade MD [address] [place] [address] Urology 04/24/20 Carlos Joyner MD [address] [place] [address]67 Assigned Surgical Provider 12/24/20 Annalise Orta PA-C 5200 [place] [address] Assigned Cancer Care Provider 05/13/21 11/01/22 Ang Slade MD [address] [address] Urology 12/18/22 Lakshmi Wilhelm PA-C [address] [place] [address] Physician Yarn Preparation Supervisor Urology 02/03/23 [place] [address] [place] [address] Assigned PCP 02/06/23 Alissa Perez PA-C [address] [place] [address] Physician Yarn Preparation Supervisor Surgery 09/04/23 Lakshmi Wilhelm PA-C [address] [place] [address]47 Physician Yarn Preparation Supervisor Urology 09/16/23 Aidee Valero PA-C [address] [place] [address] Assigned Musculoskeletal Provider 04/17/24 Tanisha Marlow 4120 [facility] [address] 03/30/24 documented as of this encounter
--- OUTSIDE RECORDS SUMMARY | 2024-04-30 03:03 | XMS_ITS | Encounter Summary ---
Author Organization [place] Address [address] [place] [address] Care Team Providers Care Solar Project Engineer Name Role Phone Carlos Joyner MD Unavailable [phone] Jadon Murray MD Unavailable [phone] Maru Villagomez RN Unavailable Unavailable Ignacia Duran MD Primary Care Provider Ang Slade MD Unavailable Carlos Joyner MD Unavailable [phone] Annalise Orta-C Unavailable [phone] Ang Slade MD Unavailable Lakshmi Wilhelm-C Unavailable Heladio Willoughby MD Primary Care Provider [phone] Heladio Willoughby MD Unavailable Alissa Perez PA-C Unavailable [phone] Lakshmi Wilhelm-C Unavailable Aidee Valero PA-C Unavailable [phone] Encounter Details Date Type Department Care Team (Late st Contact Info) Description 10/12/2021 [facility] Preoperative Assessment Center [address] 5th [place] [address] Tanisha Coe PA-C [address] [place] [address] Social History Tobacco Use Types Packs/Day [...] st Contact Info) Description 06/15/2024 9:30 AM GENERAL MANAGER FOOD Office Visit [facility] [address] [facility] [place] [phone] Xu Prince MD [address] [place] [address] 225164 06/15/2024 2:30 PM GENERAL MANAGER FOOD Office Visit [facility] [address] [place] [address] Andreea Cruz PA-C [address] [place] [address] 07/21/2024 4:00 PM GENERAL MANAGER FOOD Office Visit [facility] [address] [place] [address] [place] [address] [place] [address] documented as of this encounter Visit Diagnoses Not on filedocumented in this encounter Additional Health Concerns Infection Onset Date Last Indicated Resolved Time MRSA Comment:Added from external infection. Pt has had Staph infections but never MRSA from Care everywhere chart review. Removing MRSA 02.06.23 06/17/2019 02/06/2023 9:41 AM C DT documented as of this encounter Care Teams Solar Project Engineer Relationship Specialty Start Date End Date Ignacia Duran MD PCP - General Pediatrics 01/20/20 03/04/23 [place] [address] [facility] [address] PCP - General 03/05/23 Carlos Joyner MD [address] [place] [address] Urology 12/09/19 Jadon Murray MD [facility] [address] [address] Referring Physician Pediatric Surgery 12/09/19 Maru Villagomez, OTILIO Registered Nurse 12/10/19 Ang Slade MD [address] [place] [address] Urology 04/24/20 Carlos Joyner MD [address] [place] [address] 719035 Assigned Surgical Provider 12/24/20 Annalise Orta PA-C 5200 [place] [address] Assigned Cancer Care Provider 05/13/21 11/01/22 Ang Slade MD [address] [place] [address] Urology 12/18/22 Lakshmi Wilhelm PA-C [address] [place] [address] 715465 Physician Shingle Grader Urology 02/03/23 [place] [address] [place] [address] Assigned PCP 02/06/23 Alissa Perez PA-C [address] [place] [address] 836365 Physician Shingle Grader Surgery 09/04/23 Lakshmi Wilhelm PA-C [address] [place] [address] 155105 Physician Shingle Grader Urology 09/16/23 Aidee Valero PA-C [address] [place] [address] 371775 Assigned Musculoskeletal Provider 04/17/24 Tanisha Marlow 4120 [facility] [address] 03/30/24 documented as of this encounter
--- OUTSIDE RECORDS SUMMARY | 2024-04-30 03:03 | XMS_ITS | Encounter Summary ---
Author Organization [place] Address [address] [place] [address] Care Team Providers Care Finished Hardware Erector Name Role Phone Carlos Joyner MD Unavailable +[phone] Jadon Murray MD Unavailable +[phone] Maru Villagomez RN Unavailable Unavailable Ignacia Duran MD Primary Care Provider [phone] Carlos Joyner MD Unavailable +[phone] Ang Slade MD Unavailable [phone] Ang Slade MD Unavailable [phone] Carlos Joyner MD Unavailable +[phone] Annalise Orta-C Unavailable +[phone] Ang Slade MD Unavailable [phone] Lakshmi Wilhelm-C Unavailable [phone] Heladio Willoughby MD Primary Care Provider [phone] Heladoi Willoughby MD Unavailable Alissa Perez PA-C Unavailable [phone] Lakshmi Wilhelm-C Unavailable [phone] Aidee Valero PA-C Unavailable [phone] Reason for Visit * Reason Comments Orders Encounter Details Date Type Department Care Team (Late st Contact Info) Description 02/02/2020 Orders Only [facility] Urology and [facility] [address] [phone] Maru Villagomez, RN Social History Tobacco Use [...] st Contact Info) Description 06/15/2024 9:30 AM RETAIL PHARMACIST Office Visit [facility] [address] [place] [phone] Xu Prince MD [address] [place] [address] 048974 06/15/2024 2:30 PM RETAIL PHARMACIST Office Visit [facility] [address] [place] [address] Andreea Cruz PA-C [address] [place] [address] 07/21/2024 4:00 PM RETAIL PHARMACIST Office Visit [facility] [address] [place] [address] [place] [address] [place] [address] documented as of this encounter Visit Diagnoses Not on filedocumented in this encounter Additional Health Concerns Infection Onset Date Last Indicated Resolved Time MRSA Comment:Added from external infection. Pt has had Staph infections but never MRSA from Care everywhere chart review. Removing MRSA 9.14.23 06/17/2019 02/06/2023 9:41 AM C DT documented as of this encounter Care Teams Finished Hardware Erector Relationship Specialty Start Date End Date Ignacia Duran MD PCP - General Pediatrics 01/20/20 03/04/23 [place] [address] [place] [address] PCP - General 03/05/23 Carlos Joyner MD [address] [place] [address] 383835 Urology 12/09/19 Jadon Murray MD [facility] [address] [id number] Referring Physician Pediatric Surgery 12/09/19 Maru Villagomez, RN Registered Nurse 12/10/19 Carlos Joyner MD [address] [place] [address] 431995 Assigned Surgical Provider 03/17/20 Ang Slade MD [address] [place] [address] 140075 Urology 04/24/20 Ang Slade MD [address] [place] [address] 506145 Assigned Surgical Provider 08/13/20 Carlos Joyner MD [address] [place] [address] [phone] Assigned Surgical Provider 12/24/20 Annalise Orta PA-C 5200 [place] [address] Assigned Cancer Care Provider 05/13/21 11/01/22 Ang Slade MD [address] [place] [address] 380735 MD Urology 12/18/22 Lakshmi Wilhelm PA-C [address] [place] [address] 105195 Physician Marine Diesel Mechanic Urology 02/03/23 [place] [address] [place] [address] Assigned PCP 02/06/23 Alissa Perez PA-C [address] [place] [address] 802035 Physician Marine Diesel Mechanic Surgery 09/04/23 Lakshmi Wilhelm PA-C [address] [place] [address] 712075 Physician Marine Diesel Mechanic Urology 09/16/23 Aidee Valero PA-C [address] [place] [address] 618215 Assigned Musculoskeletal Provider 04/17/24 Tanisha Marlow 4120 [facility] [address] 03/30/24 documented as of this encounter
--- OUTSIDE RECORDS SUMMARY | 2024-04-30 03:03 | XMS_ITS | Encounter Summary ---
Author Organization [place] Address [address] [place] [address]. [place] [address] Care Team Providers Care Superior Court Justice Name Role Phone Carlos Joyner MD Unavailable [phone] Jadon Murray MD Unavailable [phone] Maru Villagomez RN Unavailable Unavailable Ang Slade MD Unavailable +[phone] Carlos Joyner MD Unavailable [phone] Ang Slade MD Unavailable [phone] Lakshmi Wilhelm PA-C Unavailable [phone] Heladio Willoughby MD Primary Care Provider [phone] Heladio Willoughby MD Unavailable Alissa Perez PA-C Unavailable [phone] Lakshmi Wilhelm PA-C Unavailable [phone] Aidee Valero PA-C Unavailable [phone] Encounter Details Date Type Department Care Team (Late st Contact Info) Description 04/08/2023 [facility] Medical Advice [facility] [address] 4th [place] [address] Rosita Velasco, RN Social History [...] an overnight senior living, or couch-surfing.) Yes 04/11/2023 Are you worried [...] st Contact Info) Description 06/15/2024 9:30 AM PASSENGER SERVICE SUPERVISOR Office Visit [address] [address] Xu Prince MD [address] [place] [address] 738254 06/15/2024 2:30 PM PASSENGER SERVICE SUPERVISOR Office Visit [facility] [address] [place] [phone] Andreea Cruz PA-C [address] [place], [place] 6635668 07/21/2024 4:00 PM PASSENGER SERVICE SUPERVISOR Office Visit [facility] [place] [address] [phone] [place] [address] [address] [place] [id number] documented as of this encounter Visit Diagnoses Not on filedocumented in this encounter Care Teams Superior Court Justice Relationship Specialty Start [place] [address] [address] [id number] PCP - General 03/05/23 Carlos Joyner MD [address] [place] [address] 56435 Urology 12/09/19 Jadon Murray MD [facility] 2530 [facility] [address] [place] [address] Referring Physician Pediatric Surgery 12/09/19 Maru Villagomez, OTILIO Registered Nurse 12/10/19 Ang Slade MD [address] [place] [address] Urology 04/24/20 Carlos Joyner MD [address] [place] [address] 51643 Assigned Surgical Provider 12/24/20 Ang Slade MD [address] [address] Urology 12/18/22 Lakshmi Wilhelm PA-C [address] [place] [address]1208 Physician Scientific Software Developer Urology 02/03/23 [place] [address] [place] [address] Assigned PCP 02/06/23 Alissa Perez PA-C [address] [place] [address]482 Physician Scientific Software Developer Surgery 09/04/23 Lakshmi Wilhelm PA-C [address] [place] [address] 31782 Physician Scientific Software Developer Urology 09/16/23 Aidee Valero PA-C [address] [place] [address] Assigned Musculoskeletal Provider 04/17/24 Tnaisha Marlow 4120 [facility] [address] 03/30/24 documented as of this encounter
--- OUTSIDE RECORDS SUMMARY | 2024-04-30 03:03 | XMS_ITS | Encounter Summary ---
Author Organization [facility] Address [address] [place] [address] Care Team Providers Care Manager Office Services Name Role Phone Carlos Joyner MD Unavailable [phone] Jadon Murray MD Unavailable + [phone] Maru Villagomez RN Unavailable Unavailable Ignacia Duran MD Primary Care Provider [phone] Agn Slade MD Unavailable [phone] Carlos Joyner MD Unavailable [phone] Ang Slade MD Unavailable [phone] Lakshmi Wilhelm-C Unavailable [phone] Heladio Willoughby MD Primary Care Provider [phone] Heladio Willoughby MD Unavailable Alissa Perez PA-C Unavailable [phone] Lakshmi Wilhelm-C Unavailable [phone] Aidee Valero PA-C Unavailable [phone] Encounter Details Date Type Department Care Team (Late st Contact Info) Description 01/07/2023 [facility] [address] [place] [address] Analisa Palacio, OTILIO Social History [...] st Contact Info) Description 06/15/2024 9:30 AM CIRCULAR SAW FILER Office Visit [facility] [address] [place] [phone] Xu Prince MD [address] [place] [address] [id number] 06/15/2024 2:30 PM CIRCULAR SAW FILER Office Visit [facility] [address] [place] [address] Andreea Cruz PA-C [address] [place] [address] 07/21/2024 4:00 PM CIRCULAR SAW FILER Office Visit [facility] [address] [place] [address] [place] [address] [place] [address] documented as of this encounter Visit Diagnoses Not on filedocumented in this encounter Additional Health Concerns Infection Onset Date Last Indicated Resolved Time MRSA Comment:Added from external infection. Pt has had Staph infections but never MRSA from Care everywhere chart review. Removing MRSA 02.06.23 06/17/2019 02/06/2023 9:41 AM C DT documented as of this encounter Care Teams Manager Office Services Relationship Specialty Start Date End Date Ignacia Duran MD PCP - General Pediatrics 01/20/20 03/04/23 [place] [address] [place] [address] PCP - General 03/05/23 Carlos Joyner MD [address] [place] [address] Urology 12/09/19 Jadon Murray MD [facility] [address] [address] Referring Physician Pediatric Surgery 12/09/19 Maru Villagomez, OTILIO Registered Nurse 12/10/19 Ang Slade MD [address] [place] [address] Urology 04/24/20 Carlos Joyner MD [address] [place] [address] Assigned Surgical Provider 12/24/20 Ang Slade MD [address] [place] [address] 13490 Urology 12/18/22 Lakshmi Wilhelm PA-C [address] [place] [address] Physician School Office Manager Urology 02/03/23 [place] [address] [place] [address] Assigned PCP 02/06/23 Alissa Perez PA-C [address] [place] [address] 237765 Physician School Office Manager Surgery 09/04/23 Lakshmi Wilhelm PA-C [address] [place] [address] [phone] Physician School Office Manager Urology 09/16/23 Aidee Valero PA-C [address] [place] [address] [id number] Assigned Musculoskeletal Provider 04/17/24 Tanisha Marlow 4120 [facility] [address] 03/30/24 documented as of this encounter
--- OUTSIDE RECORDS SUMMARY | 2024-04-30 03:03 | XMS_ITS | Encounter Summary ---
Author Organization [place] Address [address] [place] [address] Care Team Providers Care Chief Controller Center Name Role Phone Carlos Joyner MD Unavailable [phone] Jadon Murray MD Unavailable [phone] Maru Villagomez RN Unavailable Unavailable Ignacia Duran MD Primary Care Provider Ang Slade MD Unavailable Carlos Joyner MD Unavailable [phone] Annalise Orta PA-C Unavailable [phone] Ang Slade MD Unavailable Lakshmi Wilhelm-C Unavailable Heladio Willoughby MD Primary Care Provider Heladio Willoughby MD Unavailable Alissa Perez PA-C Unavailable [phone] Lakshmi Wilhelm PA-C Unavailable [phone] Aidee Valero PA-C Unavailable Encounter Details Date Type Department Care Team (Late st Contact Info) Description 10/01/[address] [facility] [address] [place] [address] Carlos Joyner MD [address] [place] [address] Social History Tobacco Use Types Packs/Day [...] st Contact Info) Description 06/15/2024 9:30 AM MIXER LEVER OPERATOR Office Visit [facility] [address] [facility] [place] [phone] Xu Prince MD [address] [place] [address] 238004 06/15/2024 2:30 PM MIXER LEVER OPERATOR Office [facility] [address] [place] [address] Andreea Cruz PA-C [address] [place] [address] 07/21/2024 4:00 PM MIXER LEVER OPERATOR Office [facility] [address] [place] [address] [place] [address] [place], [place] [phone] documented as of this encounter Visit Diagnoses Not on filedocumented in this encounter Additional Health Concerns Infection Onset Date Last Indicated Resolved Time MRSA Comment:Added from external infection. Pt has had Staph infections but never MRSA from Care everywhere chart review. Removing MRSA 02.06.23 06/17/2019 02/06/2023 9:41 AM C DT documented as of this encounter Care Teams Chief Controller Center Relationship Specialty Start Date End Date Ignacia Duran MD PCP - General Pediatrics 01/20/20 03/04/23 [place] [address] [facility] [place] [place] [address] PCP - General 03/05/23 Carlos Joyner MD [address] [place] [address] Urology 12/09/19 Jadon Murray MD [facility] [address] [address] Referring Physician Pediatric Surgery 12/09/19 Maru Villagomez, OTILIO Registered Nurse 12/10/19 Ang Slade MD [address] [place] [address] Urology 04/24/20 Carlos Joyner MD [address] [place] [address] Assigned Surgical Provider 12/24/20 Annalise Orta PA-C 5200 [place] [address] Assigned Cancer Care Provider 05/13/21 11/01/22 Ang Slade MD [address] [place] [address] Urology 12/18/22 Lakshmi Wilhelm PA-C [address] [place] [address] 037495 Physician Mica Machine Operator Urology 02/03/23 [place] [address] [place] [address] Assigned PCP 02/06/23 Alissa Perez PA-C [address] [place] [address] 786525 Physician Mica Machine Operator Surgery 09/04/23 Lakshmi Wilhelm PA-C [address] [place] [address] 304505 Physician Mica Machine Operator Urology 09/16/23 Aidee Valero PA-C [address] [place] [address] 829055 Assigned Musculoskeletal Provider 04/17/24 Tanisha Marlow 4120 [facility] [address] 03/30/24 documented as of this encounter
--- OUTSIDE RECORDS SUMMARY | 2024-04-30 03:03 | XMS_ITS | Encounter Summary ---
Author Organization [place] Address [address] [place] [address] Care Team Providers Care Manufacturing Automation Engineer Name Role Phone Carlos Joyner MD Unavailable [phone] Jadon Murray MD Unavailable [phone] Maur Villagomez RN Unavailable Unavailable Ignacia Duran MD Primary Care Provider [phone] Ang Slade MD Unavailable Carlos Joyner MD Unavailable [phone] Annalise Orta PA-C Unavailable Ang Slade MD Unavailable Lakshmi Wilhelm-C Unavailable Heladio Willoughby MD Primary Care Provider [phone] Heladio Willoughby MD Unavailable Alissa Perez PA-C Unavailable [phone] Lakshmi Wilhelm PA-C Unavailable [phone] Aidee Valero PA-C Unavailable Encounter Details Date Type Department Care Team (Late st Contact Info) Description 12/18/2021 [facility] [address]th [place] [address] Carlos Joyner MD [address] [place] [address] Social History Tobacco Use Types Packs/Day [...] st Contact Info) Description 06/15/2024 9:30 AM CERTIFIED HYPERBARIC TECHNICIAN Office Visit [facility] [address] [place] [address] Xu Prince MD [address] [place] [address] [phone] 06/15/2024 2:30 PM CERTIFIED HYPERBARIC TECHNICIAN Office Visit [facility] [address] [place] [address] Andreea Cruz PA-C [address] [place] [address] 07/21/2024 4:00 PM CERTIFIED HYPERBARIC TECHNICIAN Office Visit [facility] [address] [place] [address] [place] [address] [place] [address] documented as of this encounter Visit Diagnoses Not on filedocumented in this encounter Additional Health Concerns Infection Onset Date Last Indicated Resolved Time MRSA Comment:Added from external infection. Pt has had Staph infections but never MRSA from Care everywhere chart review. Removing MRSA 02.06.23 06/17/2019 02/06/2023 9:41 AM C DT documented as of this encounter Care Teams Manufacturing Automation Engineer Relationship Specialty Start Date End Date Ignacia Duran MD PCP - General Pediatrics 01/20/20 03/04/23 [place] [address] [place] [address] PCP - General 03/05/23 Carlos Joyner MD [address] [place] [address] [phone] Urology 12/09/19 Jadon Murray MD [facility] [address] [address] Referring Physician Pediatric Surgery 12/09/19 Maru Villagomez, OTILIO Registered Nurse 12/10/19 Ang Slade MD [address] [place] [address] Urology 04/24/20 Carlos Joyner MD [address] [place] [address] Assigned Surgical Provider 12/24/20 Annalise Orta PA-C 5200 [place] [address] Assigned Cancer Care Provider 05/13/21 11/01/22 Ang Slade MD [address] 910795 Urology 12/18/22 Lakshmi Wilhelm PA-C [address] [place] [address] 534905 Physician Shellfish Farming Supervisor Urology 02/03/23 [place] [address] [facility] [place] [address] Assigned PCP 02/06/23 Alissa Perez PA-C [address] [place] [address] 724115 Physician Shellfish Farming Supervisor Surgery 09/04/23 Lakshmi Wilhelm PA-C [address] [place] [address] 130305 Physician Shellfish Farming Supervisor Urology 09/16/23 Aidee Valero PA-C [address] [place] [address] 825025 Assigned Musculoskeletal Provider 04/17/24 Tanisha Marlow 4120 [facility] [address] 03/30/24 documented as of this encounter
--- OUTSIDE RECORDS SUMMARY | 2024-04-30 03:03 | XMS_ITS | Encounter Summary ---
Author Organization [place] Address [address] [place] [address] Care Team Providers Care Escort Service Attendant Name Role Phone Carlos Joyner MD Unavailable [phone] Jadon Murray MD Unavailable [phone] Maru Villagomez RN Unavailable Unavailable Ignacia Duran MD Primary Care Provider [phone] Ang Slade MD Unavailable [phone] Carlos Joyner MD Unavailable [phone] Annalise Orta PA-C Unavailable [phone] Ang Slade MD Unavailable [phone] Lakshmi Wilhelm-C Unavailable [phone] Heladio Willoughby MD Primary Care Provider [phone] Heladio Willoughby MD Unavailable Alissa Perez PA-C Unavailable [phone] Lakshmi Wilhelm PA-C Unavailable [phone] Aidee Valero PA-C Unavailable [phone] Encounter Details Date Type Department Care Team (Late st Contact Info) Description 04/16/2021 [facility] [address] [place] [address] Berna Britton Social History Tobacco [...] st Contact Info) Description 06/15/2024 9:30 AM SUPERVISOR LAMP SHADES Office Visit [facility] [address] [place] [phone] Xu Prince MD [address] [place] [address] 508434 06/15/2024 2:30 PM SUPERVISOR LAMP SHADES [facility] [address] [place] [address] Andreea Cruz PA-C [address] [place] [address] 07/21/2024 4:00 PM SUPERVISOR LAMP SHADES Office Visit [facility] [address] [place] [address] [place] [address] [place] [address] documented as of this encounter Visit Diagnoses Not on filedocumented in this encounter Additional Health Concerns Infection Onset Date Last Indicated Resolved Time MRSA Comment:Added from external infection. Pt has had Staph infections but never MRSA from Care everywhere chart review. Removing MRSA 02.06.23 06/17/2019 02/06/2023 9:41 AM C DT documented as of this encounter Care Teams Escort Service Attendant Relationship Specialty Start Date End Date Ignacia Duran MD PCP - General Pediatrics 01/20/20 03/04/23 [place] [address] [place] [address] PCP - General 03/05/23 Carlos Joyner MD [address] [place] [address] Urology 12/09/19 Jadon Murray MD [facility] 2530 [facility] [address] [address] Referring Physician Pediatric Surgery 12/09/19 Maru Villagomez, RN Registered Nurse 12/10/19 Ang Slade MD [address] [place] [address] Urology 04/24/20 Carlos Joyner MD [address] [place] [address]78 Assigned Surgical Provider 12/24/20 Annalise Orta PA-C 5200 [place] [address] Assigned Cancer Care Provider 05/13/21 11/01/22 Ang Slade MD [address] [place] [address] Urology 12/18/22 Lakshmi Wilhelm PA-C [address] [place] [address]24 Physician Solicitor Patent Urology 02/03/23 [place] [address] [place] [address] Assigned PCP 02/06/23 Alissa Perez PA-C [address] [place] [address] Physician Solicitor Patent Surgery 09/04/23 Lakshmi Wilhelm PA-C [address] [place] [address] [id number] Physician Solicitor Patent Urology 09/16/23 Aidee Valero PA-C [address] [place] [address] 865115 Assigned Musculoskeletal Provider 04/17/24 Tanisha Marlow 4120 [facility] [address] 03/30/24 documented as of this encounter
--- OUTSIDE RECORDS SUMMARY | 2024-04-30 03:03 | XMS_ITS | Encounter Summary ---
Author Organization [place] Address [address] [place] [address] Care Team Providers Care Etl Database Developer Name Role Phone Carlos Joyner MD Unavailable [phone] Jadon Murray MD Unavailable [phone] Maru Villagomez RN Unavailable Unavailable Ignacia Duran MD Primary Care Provider Ang Slade MD Unavailable Carlos Joyner MD Unavailable [phone] Annalise Orta PA-C Unavailable Ang Slade MD Unavailable [phone] Lakshmi Wilhelm-C Unavailable [phone] Heladio Willoughby MD Primary Care Provider [phone] Heladio Willoughby MD Unavailable Alissa Perez PA-C Unavailable [phone] Lakshmi Wilhelm-C Unavailable Aidee Valero PA-C Unavailable Reason for Visit * Reason Onset Date Comments Call Back 06/27/2021 Bladder infectio n Encounter Details Date Type Department Care Team (Late st Contact Info) Description 06/27/2021 Telephone [facility] [address] 4th [place] [address] Carlos Joyner MD [address] [place] [address] Call Back (Bladder infection) Social History [...] COVID-19? No / Unsure 06/19/2021 11:16 AM BIOMEDICAL SPECIALIST documented as of this encounter Miscellaneous Notes * Telephone Encounter - Karen Sheth - 06/27/2021 12:22 PM CST [facility] Phone [...] Center ([facility]): uro Travel Screening: Not Applicable EDICAL SPECIALIST documented in this encounter Plan of Treatment Upcoming Encounters Date Type Department Care Team (Late st Contact Info) Description 06/15/2024 9:30 AM BIOMEDICAL SPECIALIST Office Visit [address] [address] Xu Prince MD [address] [place] [address] 06/15/2024 2:30 PM BIOMEDICAL SPECIALIST Office Visit [facility] [address] [place] [phone] Andreea Cruz PA-C [address] [place] [address] 07/21/2024 4:00 PM BIOMEDICAL SPECIALIST Office Visit [facility] [address] [place] [address] [place] [address] [facility] [place], [place] 7500568 documented as of this encounter Visit Diagnoses Not on filedocumented in this encounter Additional Health Concerns Infection Onset Date Last Indicated Resolved Time MRSA Comment:Added from external infection. Pt has had Staph infections but never MRSA from Care everywhere chart review. Removing MRSA 02.06.23 06/17/2019 02/06/2023 9:41 AM C DT documented as of this encounter Care Teams Etl Database Developer Relationship Specialty Start Date End Date Ignacia Duran MD PCP - General Pediatrics 01/20/20 03/04/23 [place] [address] [address] [place], [place] 4888768 PCP - General 03/05/23 Carlos Joyner MD [address] [place] [address] Urology 12/09/19 Jadon Murray MD [facility] 2530 [facility] 550 [place] [address] Referring Physician Pediatric Surgery 12/09/19 Maru Villagomez, OTILIO Registered Nurse 12/10/19 Ang Slade MD [address] [place] [address] 394 [place] [address] Urology 04/24/20 Carlos Joyner MD [address] [place] [address] Assigned Surgical Provider 12/24/20 Annalise Orta PA-C 5200 [place] [address] Assigned Cancer Care Provider 05/13/21 11/01/22 Ang Slade MD [address] [place] [address] 500685 Urology 12/18/22 Lakshmi Wilhelm PA-C [address] [place] [address] 693725 Physician Softball Player Urology 02/03/23 [place] [address] [place] [address] Assigned PCP 02/06/23 Alissa Perez PA-C [address] [place] [address] Physician Softball Player Surgery 09/04/23 Lakshmi Wilhelm PA-C [address] [place] [address] Physician Softball Player Urology 09/16/23 Aidee Valero PA-C [address] [place] [address] Assigned Musculoskeletal Provider 04/17/24 Tanisha Marlow 4120 [facility] [address] 03/30/24 documented as of this encounter
--- OUTSIDE RECORDS SUMMARY | 2024-04-30 03:03 | XMS_ITS | Encounter Summary ---
Author Organization [place] Address [address] [place] [address] Care Team Providers Care Abrasive Grinder Name Role Phone Carlos Joyner MD Unavailable +[phone] Jadon Murray MD Unavailable +[phone] Maru Villagomez RN Unavailable Unavailable Ignacia Duran MD Primary Care Provider +[phone] Carlos Joyner MD Unavailable +[phone] Ang Slade MD Unavailable +[phone] Ang Slade MD Unavailable +[phone] Carlos Joyner MD Unavailable +[phone] Annalise Orta PA-C Unavailable +[phone] Ang Slade MD Unavailable +[phone] Lakshmi Wilhelm-C Unavailable +[phone] Heladio iWlloughby MD Primary Care Provider +[phone] Heladio Willoughby MD Unavailable Alissa Perez PA-C Unavailable +[phone] Lakshmi Wilhelm-C Unavailable +[phone] Aidee Valero PA-C Unavailable +[phone] Reason for Visit * Reason Onset Date Comments Call Back 08/01/2020 Miscommunication between urinary results Encounter Details Date Type Department Care Team (Late st Contact Info) Description 08/01/2020 Telephone [facility] [address] [place] [phone] Ang Slade MD 420 [facility] 394 [place], [place] 451655 Call Back (Miscommunication between urinary results) Social [...] COVID-19? No / Unsure 08/02/2020 8:37 AM EXPORT FREIGHT MANAGER documented as of this encounter Miscellaneous Notes * Telephone Encounter - Diego Sams - 08/01/2020 11:21 AM CST [facility] Phone Message May a detailed message be left on voicemail: yes Reason for Call: Other: Cristine with [facility] calling because pt's primary, , would like to speak with or a nurse regarding pt's urinary results. Reports that there is some miscommunication that she wants to clarify. Please call back. Action Taken: Message routed to: [facility] uro Travel Screening: Not Applicable RT FREIGHT MANAGER documented in this encounter Plan of Treatment Upcoming Encounters Date Type Department Care Team (Late st Contact Info) Description 06/15/2024 9:30 AM EXPORT FREIGHT MANAGER Office Visit [address] [address] Xu Prince MD [address] [place] [address] 106 [place] [address] 06/15/2024 2:30 PM EXPORT FREIGHT MANAGER [facility] [address] [place] [phone] Andreea Cruz PA-C [address] [place], [place] 0839568 07/21/2024 4:00 PM EXPORT FREIGHT MANAGER [facility] [address] [place] [phone] [place] [address] [place], [place] [phone] documented as of this encounter Visit Diagnoses Not on filedocumented in this encounter Additional Health Concerns Infection Onset Date Last Indicated Resolved Time MRSA Comment:Added from external infection. Pt has had Staph infections but never MRSA from Care everywhere chart review. Removing MRSA 02.06.23 06/17/2019 02/06/2023 9:41 AM C DT documented as of this encounter Care Teams Abrasive Grinder Relationship Specialty Start Date End Date Ignacia Duran MD PCP - General Pediatrics 01/20/20 03/04/23 [place] [address] [place], [place] [id number] PCP - General 03/05/23 Carlos Joyner MD 909 [place] [address] Urology 12/09/19 Jadon Murray MD [facility] [address] [address] Referring Physician Pediatric Surgery 12/09/19 Maru Villagomez, RN Registered Nurse 12/10/19 Carlos Joyner MD 909 [place], [place] 579845 Assigned Surgical Provider 03/17/20 Ang Slade MD 420 [facility] [address] [place], [place] 579675 Urology 04/24/20 Ang Slade MD 420 [facility] [address] [place], [place] 915045 Assigned Surgical Provider 08/13/20 Carlos Joyner MD [address] [place] [address] 218955 Assigned Surgical Provider 12/24/20 Annalise Orta PA-C 5200 [place] [address] Assigned Cancer Care Provider 05/13/21 11/01/22 Ang Slade MD [address] 682585 Urology 12/18/22 Lakshmi Wilhelm PA-C [address] [place] [address] 418895 Physician Service Rig Operator Urology 02/03/23 [place] [address] [facility] [address] Assigned PCP 02/06/23 Alissa Perez PA-C [address] [place] [address] Physician Service Rig Operator Surgery 09/04/23 Lakshmi Wilhelm PA-C [address] [place] [address] Physician Service Rig Operator Urology 09/16/23 Aidee Valero PA-C [address] [place] [address] Assigned Musculoskeletal Provider 04/17/24 Tanisha Marlow 4120 [facility] [address] 03/30/24 documented as of this encounter
--- OUTSIDE RECORDS SUMMARY | 2024-04-30 03:03 | XMS_ITS | Encounter Summary ---
Author Organization [place] Address [address] [place] [address] Care Team Providers Care Ammunition Storekeeper Name Role Phone Carlos Joyner MD Unavailable +[phone] Jadon Murray MD Unavailable +[phone] Maru Villagomez RN Unavailable Unavailable Ignacia Duran MD Primary Care Provider [phone] Carlos Joyner MD Unavailable +[phone] Ang Slade MD Unavailable +[phone] Ang Slade MD Unavailable +[phone] Carlos Joyner MD Unavailable +[phone] Annalise Orta PA-C Unavailable +[phone] Ang Slade MD Unavailable +[phone] Lakshmi Wilhelm-C Unavailable +[phone] Heladio Willoughby MD Primary Care Provider +[phone] Heladio Willoughby MD Unavailable Alissa Perez PA-C Unavailable [phone] Lakshmi Wilhelm-C Unavailable +[phone] Aidee Valero PA-C Unavailable +[phone] Reason for Visit * Reason Onset Date Comments Call Back 06/07/2020 Stent FYI Encounter Details Date Type Department Care Team (Late st Contact Info) Description 06/07/2020 [facility] [place] 205379 [facility] [address]th [place] [phone] Ang Slade MD 420 [facility] 394 [place], [place] 529115 Call Back (Stent FYI) Social History Tobacco [...] them back message sent to [email or web address] GER NICU * Telephone Encounter - Zo Geiger - 06/07/2020 3:16 PM CST [facility] Phone Message May a detailed message be left on voicemail: yes Reason for Call: Other: Cristine calling to let us know that Laina's stent was put in by a provider[facility] in the Emergency room on 02/04. Cristine is hoping to get a call back to discuss. Action Taken: Message routed to: [facility] Urology Travel Screening: Not Applicable GER NICU documented in this encounter Plan of Treatment Upcoming Encounters Date Type Department Care Team (Late st Contact Info) Description 06/15/2024 9:30 AM MANAGER NICU Office Visit [address] [address] Xu Prince MD [address] [place] [address] 835634 06/15/2024 2:30 PM MANAGER NICU Office Visit [facility] [address] [place] [phone] Andreea Cruz PA-C [address] [place], [place] 7614068 07/21/2024 4:00 PM MANAGER NICU [facility] [address] [place] [address] [place] [address] [place], [place] [phone] documented as of this encounter Visit Diagnoses Not on filedocumented in this encounter Additional Health Concerns Infection Onset Date Last Indicated Resolved Time MRSA Comment:Added from external infection. Pt has had Staph infections but never MRSA from Care everywhere chart review. Removing MRSA 02.06.23 06/17/2019 02/06/2023 9:41 AM C DT documented as of this encounter Care Teams Ammunition Storekeeper Relationship Specialty Start Date End Date Ignacia Duran MD PCP - General Pediatrics 01/20/20 03/04/23 [place] [address] [place], [place] 0688868 PCP - General 03/05/23 Carlos Joyner MD 9 [place] [address] Urology 12/09/19 Jadon Murray MD [facility] [address] [address] Referring Physician Pediatric Surgery 12/09/19 Maru Villagomez, OTILIO Registered Nurse 12/10/19 Carlos Joyner MD 909 [place], [place] 439405 Assigned Surgical Provider 03/17/20 Ang Slade MD 420 [facility] 394 [place] [address] Urology 04/24/20 Ang Slade MD 420 [facility] 394 [place], [place] 005[address] Assigned Surgical Provider 08/13/20 Carlos Joyner MD [address] [place] [address] 540185 Assigned Surgical Provider 12/24/20 Annalise Orta PA-C 5200 [place] [address] Assigned Cancer Care Provider 05/13/21 11/01/22 Ang Slade MD [address] 954075 Urology 12/18/22 Lakshmi Wilhelm PA-C [address] [place] [address] 393945 Physician Music Industry Internship Urology 02/03/23 [place] [address] [place] [address] Assigned PCP 02/06/23 Alissa Perez PA-C 500 [place] [address] Physician Music Industry Internship Surgery 09/04/23 Lakshmi Wilhelm PA-C [address] [place] [address] Physician Music Industry Internship Urology 09/16/23 Aidee Valero PA-C [address] [place] [address] Assigned Musculoskeletal Provider 04/17/24 Tanisha Marlow 4120 [facility] [address] 03/30/24 documented as of this encounter
--- OUTSIDE RECORDS SUMMARY | 2024-04-30 03:03 | XMS_ITS | Encounter Summary ---
Author Organization [place] Address [address] [place] [address] Care Team Providers Care Pre Press Manager Name Role Phone Carlos Joyner MD Unavailable [phone] Jadon Murray MD Unavailable + [phone] Maru Villagomez RN Unavailable Unavailable Ignacia Duran MD Primary Care Provider [phone] Ang Slade MD Unavailable +[phone] Carlos Joyner MD Unavailable [phone] Ang Slade MD Unavailable +[phone] Lakshmi Wilhelm-C Unavailable +[phone] Heladio Willoughby MD Primary Care Provider [phone] Heladio Willoughby MD Unavailable Alissa Perez PA-C Unavailable [phone] Lakshmi Wilhelm-C Unavailable [phone] Aidee Valero PA-C Unavailable [phone] Encounter Details Date Type Department Care Team (Late st Contact Info) Description 12/30/2022 [facility] Medical Advice [facility] Urology Clinic [address]th [place] [address] Analisa Palacio, OTILIO Social History [...] st Contact Info) Description 06/15/2024 9:30 AM DISTILLERY MILLER Office Visit [facility] [address] [place] [phone] Xu Prince MD [address] [place] [address] [phone] 06/15/2024 2:30 PM DISTILLERY MILLER Office Visit [facility] [address] [place] [address] Andreea Cruz PA-C [address] [place] [address] 07/21/2024 4:00 PM DISTILLERY MILLER Office Visit [facility] [address] [place] [address] [place] [address] [place] [address] documented as of this encounter Visit Diagnoses Not on filedocumented in this encounter Additional Health Concerns Infection Onset Date Last Indicated Resolved Time MRSA Comment:Added from external infection. Pt has had Staph infections but never MRSA from Care everywhere chart review. Removing MRSA 02.06.23 06/17/2019 02/06/2023 9:41 AM C DT documented as of this encounter Care Teams Pre Press Manager Relationship Specialty Start Date End Date Ignacia Duran MD PCP - General Pediatrics 01/20/20 03/04/23 [place] [address] [place] [address] PCP - General 03/05/23 Carlos Joyner MD [address] [place] [address] Urology 12/09/19 Jadon Murray MD [facility] [address] [address] Referring Physician Pediatric Surgery 12/09/19 Maru Villagomez, OTILIO Registered Nurse 12/10/19 Ang Slade MD [address] [place] [address] Urology 04/24/20 Carlos Joyner MD [address] [place] [address] Assigned Surgical Provider 12/24/20 Ang Slade MD [address] [place] [address] Urology 12/18/22 Lakshmi Wilhelm PA-C [address] [place] [address] Physician Erp Analyst Urology 02/03/23 [place] [address] [place] [address] Assigned PCP 02/06/23 Alissa Perez PA-C [address] [place] [address] 027025 Physician Erp Analyst Surgery 09/04/23 Lakshmi Wilhelm PA-C [address] [place] [address] [id number] Physician Erp Analyst Urology 09/16/23 iAdee Valero PA-C [address] [place] [address] [id number] Assigned Musculoskeletal Provider 04/17/24 Tanisha Marlow 4120 [facility] [address] 03/30/24 documented as of this encounter
--- OUTSIDE RECORDS SUMMARY | 2024-04-30 03:03 | XMS_ITS | Encounter Summary ---
Author Organization [place] Address [address] [place] [address] Care Team Providers Care Salesperson Children'S Shoes Name Role Phone Carlos Joyner MD Unavailable [phone] Jadon Murray MD Unavailable +[phone] Maru Villagomez RN Unavailable Unavailable Ang Slade MD Unavailable +[phone] Carlos Joyner MD Unavailable +[phone] Ang Slade MD Unavailable +[phone] Lakshmi Wilhelm PA-C Unavailable +[phone] Heladio Willoughby MD Primary Care Provider [phone] Heladio Willoughby MD Unavailable Alissa Perez PA-C Unavailable [phone] Lakshmi Wilhelm PA-C Unavailable +[phone] Aidee Valero PA-C Unavailable +[phone] Encounter Details Date Type Department Care Team (Late st Contact Info) Description 03/27/2023 [facility] Medical Advice UR PREOP/PHASE II 2450 [place] [phone] Lisette Salinas RN Social History Tobacco Use [...] an overnight nursing home, or couch-surfing.) Yes 02/26/2023 Are you worried [...] st Contact Info) Description 06/15/2024 9:30 AM NURSE PRACTITIONER ADULT Office Visit [address] [address] Xu Prince MD [address] [place] [address] 024074 06/15/2024 2:30 PM NURSE PRACTITIONER ADULT Office Visit [address] [address] Andreea Cruz PA-C [address] [place] [address] 07/21/2024 4:00 PM NURSE PRACTITIONER ADULT Office [facility] [address] [place] [phone] [place] [address] [facility] [place] [place] 1809168 documented as of this encounter Visit Diagnoses Not on filedocumented in this encounter Care Teams Salesperson Children'S Shoes Relationship Specialty Start [place] [address] [facility] [place], [place] [phone] PCP - General 03/05/23 Carlos Joyner MD [address] [place] [address] Urology 12/09/19 Jadon Murray MD [facility] 2530 [facility] 550 [place] [address] Referring Physician Pediatric Surgery 12/09/19 Maru Villagomez, OTILIO Registered Nurse 12/10/19 Ang Slade MD [address] [place] [address] 015375 Urology 04/24/20 Carlos Joyner MD [address] [place] [address] Assigned Surgical Provider 12/24/20 Ang Slade MD [address] [place] [address] Urology 12/18/22 Lakshmi Wilhelm PA-C [address] [place] [address] Physician Ambulatory Care Coordinator Urology 02/03/23 [place] [address] [place] [address] Assigned PCP 02/06/23 Alissa Perez PA-C [address] [place] [address] Physician Ambulatory Care Coordinator Surgery 09/04/23 Lakshmi Wilhelm PA-C [address] [place] [address] Physician Ambulatory Care Coordinator Urology 09/16/23 Aidee Valero PA-C [address] [place] [address] 170735 Assigned Musculoskeletal Provider 04/17/24 Tanisha Marlow 4120 [facility] [address] 03/30/24 documented as of this encounter
--- OUTSIDE RECORDS SUMMARY | 2024-04-30 03:03 | XMS_ITS | Encounter Summary ---
Author Organization [place] Address [address] [place] [address] Care Team Providers Care Lab Nurse Name Role Phone Carlos Joyner MD Unavailable [phone] Jadon Murray MD Unavailable +[phone] Maru Villagomez RN Unavailable Unavailable Ignacia Duran MD Primary Care Provider [phone] Ang Slade MD Unavailable +[phone] Carlos Joyner MD Unavailable +[phone] Annalise Orta PA-C Unavailable +[phone] Ang Slade MD Unavailable +[phone] Lakshmi Wilhelm-C Unavailable [phone] Heladio Willoughby MD Primary Care Provider [phone] Heladio Willoughby MD Unavailable Alissa Perez PA-C Unavailable [phone] Lakshmi Wilhelm PA-C Unavailable [phone] Aidee Valero PA-C Unavailable [phone] Encounter Details Date Type Department Care Team (Late st Contact Info) Description 06/19/2021 [facility] U[facility] Clinic [address] [address] Jenna Mcfadden, RN Social History [...] COVID-19? No / Unsure 06/19/2021 11:16 AM ORTHOTIC AND PROSTHETIC TECHNICIAN documented as of this encounter Plan of Treatment Upcoming Encounters Date Type Department Care Team (Late st Contact Info) Description 06/15/2024 9:30 AM ORTHOTIC AND PROSTHETIC TECHNICIAN Office Visit [facility] [address] [place] [address] Xu Prince MD [address] [place] [address] 865274 06/15/2024 2:30 PM ORTHOTIC AND PROSTHETIC TECHNICIAN [facility] [address] [place] [address] Andreea Cruz PA-C [address] [place] [address] 07/21/2024 4:00 PM ORTHOTIC AND PROSTHETIC TECHNICIAN [facility] [address] [place] [address] [place] [address] [place] [address] documented as of this encounter Visit Diagnoses Not on filedocumented in this encounter Additional Health Concerns Infection Onset Date Last Indicated Resolved Time MRSA Comment:Added from external infection. Pt has had Staph infections but never MRSA from Care everywhere chart review. Removing MRSA 9.14.23 06/17/2019 02/06/2023 9:41 AM C DT documented as of this encounter Care Teams Lab Nurse Relationship Specialty Start Date End Date Ignacia Duran MD PCP - General Pediatrics 01/20/20 03/04/23 [place] [address] [facility] [place] [address] PCP - General 03/05/23 Carlos Joyner MD [address] [place] [address] Urology 12/09/19 Jadon Murray MD [facility] [address] [id number] Referring Physician Pediatric Surgery 12/09/19 Maru Villagomez, OTILIO Registered Nurse 12/10/19 Ang Slade MD [address] [place] [address] Urology 04/24/20 Carlos Joyner MD [address] [place] [address] Assigned Surgical Provider 12/24/20 Annalise Orta PA-C 5200 [place] [address] Assigned Cancer Care Provider 05/13/21 11/01/22 Ang Slade MD [address] [place] [address] 371305 Urology 12/18/22 Lakshmi Wilhelm PA-C [address] [place] [address] 702675 Physician Exercise Planner Urology 02/03/23 [place] [address] [place] [address] Assigned PCP 02/06/23 Alissa Perez PA-C [address] [place] [address] 489785 Physician Exercise Planner Surgery 09/04/23 Lakshmi Wilhelm PA-C [address] [place] [address] 011395 Physician Exercise Planner Urology 09/16/23 Aidee Valero PA-C 909 [place], [place] 698885 Assigned Musculoskeletal Provider 04/17/24 Tanisha Marlow 4120 [facility] [address] 03/30/24 documented as of this encounter
--- OUTSIDE RECORDS SUMMARY | 2024-04-30 03:03 | XMS_ITS | Encounter Summary ---
Author Organization [place] Address [address] [place] [address] Care Team Providers Care High School Social Studies Teacher Name Role Phone Carlos Joyner MD Unavailable [phone] Jadon Murray MD Unavailable [phone] Maru Villagomez RN Unavailable Unavailable Ignacia Duran MD Primary Care Provider [phone] Ang Sldae MD Unavailable +[phone] Carlos Joyner MD Unavailable +[phone] Annalise Orta PA-C Unavailable +[phone] Ang Slade MD Unavailable [phone] Lakshmi Wilhelm-C Unavailable Heladio Willoughby MD Primary Care Provider Heladio Willoughby MD Unavailable Alissa Perez PA-C Unavailable [phone] Lakshmi Wilhelm PA-C Unavailable +[phone] Aidee Valero PA-C Unavailable [phone] Encounter Details Date Type Department Care Team (Late st Contact Info) Description 09/17/2021 [facility] Urology Clinic [address] [place] [address] Carlos Joyner MD [address] [place] [address] Social History Tobacco Use Types Packs/Day [...] encounter Miscellaneous Notes * Telephone Encounter - Sairka Gonsalez - 09/27/2021 8:51 AM CDT documented in this encounter Plan of Treatment Upcoming Encounters Date Type Department Care Team (Late st Contact Info) Description 06/15/2024 9:30 AM CONFERENCE CENTER COORDINATOR Office Visit [address] [phone] Xu Prince MD [address] [place] [address] 06/15/2024 2:30 PM CONFERENCE CENTER COORDINATOR Office Visit [facility] [address] [place] [address] Andreea Cruz PAEarlC [address] [place] [address] 07/21/2024 4:00 PM CONFERENCE CENTER COORDINATOR Office Visit [facility] [address] [place] [address] [place] [address] [place] [address] documented as of this encounter Visit Diagnoses Not on filedocumented in this encounter Additional Health Concerns Infection Onset Date Last Indicated Resolved Time MRSA Comment:Added from external infection. Pt has had Staph infections but never MRSA from Care everywhere chart review. Removing MRSA 9.14.23 06/17/2019 02/06/2023 9:41 AM C DT documented as of this encounter Care Teams High School Social Studies Teacher Relationship Specialty Start Date End Date Ignacia Duran MD PCP - General Pediatrics 01/20/20 03/04/23 [place] [address] [place] [address] PCP - General 03/05/23 Carlos Joyner MD [address] [place] [address] Urology 12/09/19 Jadon Murray MD [facility] [address] [address] Referring Physician Pediatric Surgery 12/09/19 Maru Villagomez, OTILIO Registered Nurse 12/10/19 Ang Slade MD 420 [facility] 394 [place] [address] Urology 04/24/20 Carlos Joyner MD [address] [place] [address] Assigned Surgical Provider 12/24/20 Annalise Orta PA-C 5200 [place] [address] Assigned Cancer Care Provider 05/13/21 11/01/22 Ang Slade MD [address] [place] [address] Urology 12/18/22 Lakshmi Wilhelm PA-C [address] [place] [address] Physician Mechatronics Technologist Urology 02/03/23 [place] [address] [place] [address] Assigned PCP 02/06/23 Alissa Perez PA-C [address] [place] [address] Physician Mechatronics Technologist Surgery 09/04/23 Lakshmi Wilhelm PA-C [address] [place] [address] Physician Mechatronics Technologist Urology 09/16/23 Aidee Valero PA-C [address] [place] [address] Assigned Musculoskeletal Provider 04/17/24 Tanisha Marlow 4120 [facility] [address] 03/30/24 documented as of this encounter
--- OUTSIDE RECORDS SUMMARY | 2024-04-30 03:03 | XMS_ITS | Encounter Summary ---
Author Organization [place] Address [address] [place] [address] Care Team Providers Care Rip/Mould Operator Name Role Phone Carlos Joyner MD Unavailable [phone] Jadon Murray MD Unavailable + [phone] Maru Villagomez RN Unavailable Unavailable Ignacia Duran MD Primary Care Provider [phone] Ang Slade MD Unavailable [phone] Carlos Joyner MD Unavailable [phone] Ang Slade MD Unavailable [phone] Lakshmi Wilhelm-C Unavailable +[phone] Heladio Willoughby MD Primary Care Provider [phone] Heladio Willoughby MD Unavailable Alissa Perez PA-C Unavailable [phone] Lakshmi Wilhelm-C Unavailable [phone] Aidee Valero PA-C Unavailable +[phone] Encounter Details Date Type Department Care Team (Late st Contact Info) Description 01/06/2023 [facility] [place] [facility] [address] Lisette Mariee Social History Tobacco [...] st Contact Info) Description 06/15/2024 9:30 AM BUTT WELDER Office Visit [facility] [address] [place] [address] [phone] Xu Prince MD [address] [place] [address] 465474 06/15/2024 2:30 PM BUTT WELDER Office Visit [facility] [address] [place] [address] Andreea Cruz PA-C [address] [place] [address] 07/21/2024 4:00 PM BUTT WELDER Office Visit [facility] [address] [place] [address] [place] [address] [place], [place] [phone] documented as of this encounter Visit Diagnoses Not on filedocumented in this encounter Additional Health Concerns Infection Onset Date Last Indicated Resolved Time MRSA Comment:Added from external infection. Pt has had Staph infections but never MRSA from Care everywhere chart review. Removing MRSA 02.06.23 06/17/2019 02/06/2023 9:41 AM C DT documented as of this encounter Care Teams Rip/Mould Operator Relationship Specialty Start Date End Date Ignacia Duran MD PCP - General Pediatrics 01/20/20 03/04/23 [place] [address] [place] [address] PCP - General 03/05/23 Carlos Joyner MD [address] [place] [address] 18492 Urology 12/09/19 Jadon Murray MD [facility] [address] [address] Referring Physician Pediatric Surgery 12/09/19 Maru Villagomez, OTILIO Registered Nurse 12/10/19 Ang Slade MD [address] [place] [address] 88922 Urology 04/24/20 Carlos Joyner MD [address] [place] [address]7623 Assigned Surgical Provider 12/24/20 Ang Slade MD [address] [place] [address] 10742 Urology 12/18/22 Lakshmi Wilhelm PA-C [address] [place] [address] Physician Emd Teacher Urology 02/03/23 [place] [address] [place] [address] Assigned PCP 02/06/23 Alissa Perez PA-C [address] [place] [address] 387455 Physician Emd Teacher Surgery 09/04/23 Lakshmi Wilhelm PA-C [address] [place] [address] [id number] Physician Emd Teacher Urology 09/16/23 Aidee Valero PA-C [address] [place] [address] [id number] Assigned Musculoskeletal Provider 04/17/24 Tanisha Marlow 4120 [facility] [address] 03/30/24 documented as of this encounter
--- OUTSIDE RECORDS SUMMARY | 2024-04-30 03:03 | XMS_ITS | Encounter Summary ---
Author Organization [place] Address [address] [place] [address] Care Team Providers Care Jawbone Puller Name Role Phone Carlos Joyner MD Unavailable [phone] Jadon Murray MD Unavailable +[phone] Maru Villagomez RN Unavailable Unavailable Ignacia Duran MD Primary Care Provider Ang Slade MD Unavailable [phone] Carlos Joyner MD Unavailable [phone] Annalise Orta PA-C Unavailable [phone] Ang Slade MD Unavailable [phone] Lakshmi Wilhelm-C Unavailable [phone] Heladio Willoughby MD Primary Care Provider [phone] Heladio Willoughby MD Unavailable Alissa Perez PA-C Unavailable [phone] Lakshmi Wilhelm PA-C Unavailable [phone] Aidee Valero PA-C Unavailable +[phone] Encounter Details Date Type Department Care Team (Late st Contact Info) Description 10/02/2021 [facility] [address] [place] [address] Analisa Palacio, RN Social History [...] encounter Miscellaneous Notes * Telephone Encounter - Walalce Sarika - 10/03/2021 1:34 PM CDT documented in this encounter Plan of Treatment Upcoming Encounters Date Type Department Care Team (Late st Contact Info) Description 06/15/2024 9:30 AM ANDROID PROGRAMMER Office Visit [address] [phone] Xu Prince MD [address] [place] [address] [phone] 06/15/2024 2:30 PM ANDROID PROGRAMMER Office Visit [facility] [address] [place] [address] Andreea Cruz PA-C [address] [place], [place] 2597668 07/21/2024 4:00 PM ANDROID PROGRAMMER Office Visit [facility] [address] [place] [address] [place] [address] [place] [address] documented as of this encounter Visit Diagnoses Not on filedocumented in this encounter Additional Health Concerns Infection Onset Date Last Indicated Resolved Time MRSA Comment:Added from external infection. Pt has had Staph infections but never MRSA from Care everywhere chart review. Removing MRSA 9.14.23 06/17/2019 02/06/2023 9:41 AM C DT documented as of this encounter Care Teams Jawbone Puller Relationship Specialty Start Date End Date Ignacia Duran MD PCP - General Pediatrics 01/20/20 03/04/23 [place] [address] [place] [address] PCP - General 03/05/23 Carlos Joyner MD [address] [place] [address] Urology 12/09/19 Jadon Murray MD [facility] [address] [address] Referring Physician Pediatric Surgery 12/09/19 Maru Villagomez, RN Registered Nurse 12/10/19 Ang Slade MD [address] [place] [address] 728805 Urology 04/24/20 Carlos Joyner MD [address] [place] [address] [phone] Assigned Surgical Provider 12/24/20 Annalise Orta PA-C 5200 [place] [address] Assigned Cancer Care Provider 05/13/21 11/01/22 Ang Slade MD [address] [address] Urology 12/18/22 Lakshmi Wilhelm PA-C [address] [place] [phone] Clerk Urology 02/03/23 [place] [address] [place] [address] Assigned PCP 02/06/23 Alissa Perez PA-C [address] [place] [address] Clerk Surgery 09/04/23 Lakshmi Wilhelm PA-C [address] [place] [address] Urology 09/16/23 Aidee Valero PA-C [address] [place] [address] 982995 Assigned Musculoskeletal Provider 04/17/24 Tanisha Marlow 4120 [facility] [address] 03/30/24 documented as of this encounter
--- OUTSIDE RECORDS SUMMARY | 2024-04-30 03:03 | XMS_ITS | Encounter Summary ---
Author Organization [facility] Address [address] [place] [address] Care Team Providers Care Reimbursement Specialist Name Role Phone Carlos Joyner MD Unavailable [phone] Jadon Murray MD Unavailable [phone] Maru Villagomez RN Unavailable Unavailable Ignacia Duran MD Primary Care Provider Ang Slade MD Unavailable [phone] Carlos Joyner MD Unavailable +[phone] Annalise Orta PA-C Unavailable [phone] Ang Slade MD Unavailable [phone] Lakshmi Wilhelm-C Unavailable [phone] Heladio Willoughby MD Primary Care Provider Heladio Willoughby MD Unavailable Alissa Perez PA-C Unavailable [phone] Lakshmi Wilhelm PA-C Unavailable [phone] Aidee Valero PA-C Unavailable [phone] Reason for Visit * Reason Onset Date Comments Orders 01/01/2022 Syringes - 35 an d 60 ml requested Encounter Details Date Type Department Care Team (Late st Contact Info) Description 01/01/2022 Telephone [facility] [address] 4th [place] [address] Carlos Joyner MD [address] [place] [address] Orders (Syringes - 35 and 60 ml [...] order to [facility] at [phone]. Thank you. Action Taken: Other: Urology Travel Screening: Not Applicable documented in this encounter Plan of Treatment Upcoming Encounters Date Type Department Care Team (Late st Contact Info) Description 06/15/2024 9:30 AM MANUFACTURING GROUP LEADER Office Visit [facility] [address] [place] [phone] Xu Prince MD [address] [phone] 06/15/2024 2:30 PM MANUFACTURING GROUP LEADER Office Visit [facility] [address] [place] [address] Andreea Cruz PA-C [address] [place] [address] 07/21/2024 4:00 PM MANUFACTURING GROUP LEADER Office Visit [facility] [address] [place] [address] [place] [address] [place] [address] documented as of this encounter Visit Diagnoses Not on filedocumented in this encounter Additional Health Concerns Infection Onset Date Last Indicated Resolved Time MRSA Comment:Added from external infection. Pt has had Staph infections but never MRSA from Care everywhere chart review. Removing MRSA 02.06.23 06/17/2019 02/06/2023 9:41 AM C DT documented as of this encounter Care Teams Reimbursement Specialist Relationship Specialty Start Date End Date Ignacia Duran MD PCP - General Pediatrics 01/20/20 03/04/23 [place] [address] [place] [address] PCP - General 03/05/23 Carlos Joyner MD [address] [place] [address] Urology 12/09/19 Jadon Murray MD [facility] 2530 [facility] [address] [address] Referring Physician Pediatric Surgery 12/09/19 Maru Villagomez, OTILIO Registered Nurse 12/10/19 Ang Slade MD [address] [place] [address] [phone] Urology 04/24/20 Carlos Joyner MD [address] [place] [address] 238835 Assigned Surgical Provider 12/24/20 Annalise Orta PA-C 5200 [place] [address] Assigned Cancer Care Provider 05/13/21 11/01/22 Ang Slade MD [address] [place] [address] 936035 Urology 12/18/22 Lakshmi Wilhelm PA-C [address] [place] [address] 059805 Physician Community Artist Urology 02/03/23 [place] [address] [place] [address] Assigned PCP 02/06/23 Alissa Perez PA-C [address] [place] [address]702 Physician Community Artist Surgery 09/04/23 Lakshmi Wilhelm PA-C [address] [place] [address] Physician Community Artist Urology 09/16/23 Aidee Valero PA-C [address] [place] [address] Assigned Musculoskeletal Provider 04/17/24 Tanisha Marlow [facility]0 [facility] [address] 03/30/24 documented as of this encounter
--- OUTSIDE RECORDS SUMMARY | 2024-04-30 03:03 | XMS_ITS | Encounter Summary ---
Author Organization [place] Address [address] [place] [address] Care Team Providers Care Admiralty Lawyer Name Role Phone Carlos Joyner MD Unavailable [phone] Jadon Murray MD Unavailable [phone] Maru Villagomez RN Unavailable Unavailable Ignacia Duran MD Primary Care Provider Ang Slade MD Unavailable [phone] Carlos Joyner MD Unavailable [phone] Annalise Orta PA-C Unavailable [phone] Ang Slade MD Unavailable [phone] Lakshmi Wilhelm-C Unavailable [phone] Heladio Willoughby MD Primary Care Provider [phone] Heladio Willoughby MD Unavailable Alissa Perez PA-C Unavailable [phone] Lakshmi Wilhelm PA-C Unavailable [phone] Aidee Valero PA-C Unavailable [phone] Encounter Details Date Type Department Care Team (Late st Contact Info) Description 11/07/2021 [facility] [address] [place] [address] Analisa Palacio, RN Social History [...] st Contact Info) Description 06/15/2024 9:30 AM CLINICAL DIETICIAN Office Visit [facility] [address] [place] [address] [phone] Xu Prince MD [address] [place] [address] [phone] 06/15/2024 2:30 PM CLINICAL DIETICIAN Office Visit [facility] [address] [place] [address] Andreea Cruz PA-C [address] [place] [address] 07/21/2024 4:00 PM CLINICAL DIETICIAN Office Visit [facility] [address] [place] [address] [place] [address] [place], [place] [phone] documented as of this encounter Visit Diagnoses Not on filedocumented in this encounter Additional Health Concerns Infection Onset Date Last Indicated Resolved Time MRSA Comment:Added from external infection. Pt has had Staph infections but never MRSA from Care everywhere chart review. Removing MRSA 9.14.23 06/17/2019 02/06/2023 9:41 AM C DT documented as of this encounter Care Teams Admiralty Lawyer Relationship Specialty Start Date End Date Ignacia Duran MD PCP - General Pediatrics 01/20/20 03/04/23 [place] [address] [place] [address] PCP - General 03/05/23 Carlos Joyner MD [address] [place] [address] Urology 12/09/19 Jadon Murray MD [facility] [address] [address] Referring Physician Pediatric Surgery 12/09/19 Maru Villagomez, RN Registered Nurse 12/10/19 Ang Slade MD [address] [place] [address] Urology 04/24/20 Carlos Joyner MD [address] [place] [address] Assigned Surgical Provider 12/24/20 Annalise Orta PA-C 5200 [place] [address] Assigned Cancer Care Provider 05/13/21 11/01/22 Ang Slade MD [address] [address] Urology 12/18/22 Lakshmi Wilhelm PA-C [address] [place] [address] Physician Business Support Specialist Urology 02/03/23 [place] [address] [place] [address] Assigned PCP 02/06/23 Alissa Perez PA-C [address] [place] [address]21 Physician Business Support Specialist Surgery 09/04/23 Lakshmi Wilhelm PA-C [address] [place] [address] Physician Business Support Specialist Urology 09/16/23 Aidee Valero PA-C [address] [place] [address] Assigned Musculoskeletal Provider 04/17/24 Tanisha Marlow 4120 [facility] [address] 03/30/24 documented as of this encounter
--- OUTSIDE RECORDS SUMMARY | 2024-04-30 03:03 | XMS_ITS | Encounter Summary ---
Author Organization [facility] Address [address] [place] [address] Care Team Providers Care Composition Board Press Operator Name Role Phone Carlos Joyner MD Unavailable [phone] Jadon Murray MD Unavailable +[phone] Maru Villagomez RN Unavailable Unavailable Ignacia Duran MD Primary Care Provider Ang Slade MD Unavailable +[phone] Carlos Joyner MD Unavailable +[phone] Annalise Orta PA-C Unavailable Ang Slade MD Unavailable Lakshmi Wilhelm-C Unavailable [phone] Heladio Willoughby MD Primary Care Provider Heladio Willoughby MD Unavailable Alissa Perez PA-C Unavailable [phone] Lakshmi Wilhelm-C Unavailable [phone] Aidee Valero PA-C Unavailable [phone] Reason for Visit * Reason Onset Date Comments Patient/info Update 02/26/2021 pt currently intubated, will nto be able to have uro surgery Encounter Details Date Type Department Care Team ([facility] Contact Info) Description 02/26/2021 [facility] [address] [place] [address] Carlos Joyner MD 909 [place], [place] 527825 Patient/info Update (pt currently intubated, will nto [...] Lakshmi Chowdhury - 02/26/2021 2:07 PM CDT [facility] Phone Message May a detailed message be left on voicemail: yes Reason for Call: Other: Edith called in wanting to let Dr. Joyner and his team know that [facility] date [facility]09[facility]21. Please call back if thereare any questions at [phone] Action Taken: Message routed to: [facility] uro Travel Screening: Not Applicable documented in this encounter Plan of Treatment Upcoming Encounters Date Type Department Care Team (Late st Contact Info) Description 06/15/2024 9:30 AM EARLY CHILDHOOD EDUCATION INSTRUCTOR Office Visit [address] [address] Xu Prince MD [address] [place] [address] 093714 06/15/2024 2:30 PM EARLY CHILDHOOD EDUCATION INSTRUCTOR [facility] [address] [place] [phone] Andreea Cruz PA-C [address] [place], [place] 8452868 07/21/2024 4:00 PM EARLY CHILDHOOD EDUCATION INSTRUCTOR [facility] [address] [place] [address] [place] [address] [place], [place] [phone] documented as of this encounter Visit Diagnoses Not on filedocumented in this encounter Additional Health Concerns Infection Onset Date Last Indicated Resolved Time MRSA Comment:Added from external infection. Pt has had Staph infections but never MRSA from Care everywhere chart review. Removing MRSA .1406/17/2019 02/06/2023 9:41 AM C DT documented as of this encounter Care Teams Composition Board Press Operator Relationship Specialty Start Date End Date Ignacia Duran MD PCP - General Pediatrics 01/20/20 03/04/23 [place] [address] [place], [place] [phone] PCP - General 03/05/23 Carlos Joyner MD 9 [place] [address] Urology 12/09/19 Jadon Murray MD [facility] [address] [address] Referring Physician Pediatric Surgery 12/09/19 Maru Villagomez, OTILIO Registered Nurse 12/10/19 Ang Slade MD [address] [place] [address] Urology 04/24/20 Carlos Joyner MD [address] [place] [address] Assigned Surgical Provider 12/24/20 Annalise Orta PA-C 5200 [place] [address] Assigned Cancer Care Provider 05/13/21 11/01/22 Ang Slade MD [address] [place] [address] Urology 12/18/22 Lakshmi Wilhelm PA-C [address] [place] [address] Physician Vice President Sales Urology 02/03/23 [place] [address] [place] [address] Assigned PCP 02/06/23 Alissa Perez PA-C [address] [place] [address] Physician Vice President Sales Surgery 09/04/23 Lakshmi Wilhelm PA-C [address] [place] [address] Physician Vice President Sales Urology 09/16/23 Aidee Valero PA-C [address] [place] [address] Assigned Musculoskeletal Provider 04/17/24 Tanisha Marlow 4120 [facility] [address] 03/30/24 documented as of this encounter
== END 2024-04-29 00:46 | disposition home or self-care (01) ==
LOC: AMB 04-30 02:58
PROVIDERS: PCP Pediatrics; Visit Provider Family Medicine
DX: R10.9 Unspecified abdominal pain (principal); R11.0 Nausea
CPT/HCPCS: A0425; A0427

== ENCOUNTER 2024-04-29 01:21 | Inpatient (IN) | payer MEDICARE, BC, MEDICAID, SELFPAY ==
[2024-04-29] VITALS (16 sets, daily range): BP systolic 98–122; BP diastolic 48–82; PULSE 99–135; RESP 16–20; TEMP 37.3–38.8; O2SAT 94–99
[2024-04-29] MEDS: 0.9 % SODIUM CHLORIDE 1000 ml 1,000 ML IV (01:59)
[2024-04-29 02:08] LABS: PCR FLU A Negative PCR FLU A (Negative); PCR FLU B Negative PCR FLU B (Negative); PCR RSV Negative PCR RSV (Negative); SARS PCR* Negative SARS-CoV-2 (Negative)
[2024-04-29 02:13] LABS: Lactate* 1.1 mmol/L (0.5-1.9)
--- NOTE | 2024-04-29 02:14 | ED_ITS ---
HPI - General Adult General Date Seen: 04/29/24 Chief complaint: Fever Stated complaint: fever Time Seen by Provider: 04/29/24 01:33 Source: patient Mode of arrival: EMS Limitations: no limitations History of Present Illness HPI narrative: Patient is a 23-year-old female with a history of spina bifida, neurogenic bladder, and recurrent urinary tract infections. She has a remote history of urosepsis about four or five years ago. She was recently treated with antibiotics and when she continued to have symptoms her urologist was contacted and another urine was sent in on 04/21/2024. This was nitrite positive with 25- 50 white blood cells. Her urine culture grew both pansensitive E coli and Enterobacter cloacae that was sensitive to Cipro and Bactrim. She was started on Cipro but did not get the antibiotic until yesterday. She has had two or three doses. Today she began complaining of some migratory abdominal pain and difficulty breathing. She was less responsive and may have been confused earlier this evening. The nurse line was called by her caregiver and they were instructed to bring her to the emergency department for evaluation for sepsis. She has had fever as high as 102. With her neurogenic bladder she self catheterizes about 5 times per day. She has a history of kidney stones. Related Data Home Medications ?Medication ?Instructions ?Recorded ?Confirmed oxybutynin chloride 5 mg tablet 5 mg PO BID 07/21/22 10/31/23 indapamide 1.25 mg tablet 1.25 mg PO QAM 10/31/23 10/31/23 potassium chloride 10 mEq 10 meq PO BID 10/31/23 10/31/23 tablet,extended release(part/cryst) Previous Rx's ?Medication ?Instructions ?Recorded cephalexin 500 mg tablet 500 mg PO TID #21 tabs 02/05/24 sulfamethoxazole 800 1 tab PO BID #14 tabs 02/08/24 mg-trimethoprim 160 mg tablet (Bactrim DS) Allergies Allergy/AdvReac Type Severity Reaction Status Date / Time ibuprofen Allergy Intermediate 1 Kidney Verified 10/31/23 19:52 vancomycin Allergy Intermediate Swapnil Verified 10/31/23 19:52 Syndrome latex Allergy Mild Rash Verified 10/31/23 19:52 Review of Systems Narrative: Review of systems is as outlined above otherwise noted to be negative. Her urologist is at [facility]. She does not have a local PCP. She is full code. Her last hospitalization was at [facility] about five years ago. 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.1 - Lobulated, fused and horseshoe kidney (ICD-10) Mild intellectual disability ?F70 - Mild intellectual disabilities (ICD-10) Neurogenic bladder ?N31.9 - Neuromuscular dysfunction of bladder, unspecified (ICD-10) COVID-19 ?U07.1 - COVID-19 (ICD-10) Spina bifida ?Q05.9 - Spina bifida, unspecified (ICD-10) Surgical History (Updated 04/29/24 @ 02:09 by Jadon Thompson MD) History of spinal fusion ?Z98.1 - Arthrodesis status (ICD-10) H/O wisdom tooth extraction ?K08.409 - Partial loss of teeth, unspecified cause, unspecified class (ICD- 10) Hx of nephrolithotomy with removal of calculi ?Z98.890 - Other specified postprocedural states (ICD-10) ?Z87.442 - Personal history of urinary calculi (ICD-10) S/P PUBLICITY AGENT shunt ?Z98.2 - Presence of cerebrospinal fluid drainage device (ICD-10) Family History (Updated 04/29/24 @ 02:08 by Jadon Thompson MD) Father Diabetes Mother Bipolar 1 disorder Social History Smoking Status: Never smoker Do you use any of these nicotine containing products: None Second hand tobacco smoke exposure: No How often do you have a drink containing alcohol: never AUDIT-C Alcohol total score: 0 Non-prescribed substance use: denies use service: No Exam Narrative: Exam Narrative: Vitals noted. She is awake and alert and able to answer questions. She is tachycardic. Temp is 100.0?. HEENT: Conjunctiva clear. Posterior pharynx is clear without erythema or exudate. Neck is supple without adenopathy. Lungs: Clear to auscultation in all pérez. No wheezes, rales, rhonchi. No inc reased work of breathing. Heart: Tachycardic, regular rate, without murmur. Abdomen: Soft with mild diffuse tenderness. No guarding, rigidity, rebound. Bowel sounds are normal. No palpable masses. Extremities: No cyanosis or edema. Good distal pulses. Skin: Her lower extremities are pink and perfused. Neurologic: Awake, alert, fully oriented. She is paraplegic with previous spinal surgery. Const: Vital Signs, click to edit/add: Vital Signs - 24 hr 04/29/24 01:26 04/29/24 01:32 04/29/24 01:51 Temperature 100.0 F H 100.0 F H Pulse Rate 123 H Pulse Rate [Right Pulse Oximeter] 125 H 127 H Respiratory Rate 20 20 20 Blood Pressure 113/71 Blood Pressure [Le ft Arm] 122/69 Blood Pressure [Ri ght Upper Arm] 107/76 Pulse Oximetry 99 95 99 Oxygen Delivery Me thod Room Air Room Air 04/29/24 02:11 04/29/24 02:13 04/29/24 02:32 Temperature Pulse Rate 128 H 126 H Pulse Rate [Right Pulse Oximeter] Respiratory Rate 20 20 Blood Pressure 122/69 118/82 Blood Pressure [Le ft Arm] Blood Pressure [Ri ght Upper Arm] Pulse Oximetry 94 99 97 Oxygen Delivery Me thod Course Course ED Course: Patient is seen and examined. IV is established in she received 1 L of normal saline rapidly initially. After reviewing her records we did give Cipro 400 mg IV after drawing labs and blood cultures x2. Reevaluation(s) Reevaluation #1: [place] [address], hemoglobin 17.0. 88% neutrophils. Lactate is 1.1. Triple swab is negative. Basic metabolic panel shows a BUN of 26 and a creatinine of 0.5. Procalcitonin are pending. CT of the abdomen and pelvis with IV contrast is ordered. Reevaluation #2: Procalcitonin is minimally elevated. CT scan shows chronic stable bilateral hydronephrosis, multiple renal calculi, bladder stone. No evidence of pyelonephrosis. I do not believe that she is septic but with her febrile UTI, neurogenic bladder, and history of chronic recurrent infections I think she would benefit from admission, IV fluids, IV antibiotics. Our E-hospitalist kindly agrees to admit her. Vital Signs Vital signs: Initial Vital Signs Temperature 100.0 F H 04/29/24 01:26 Temperature Source Temporal Artery Scan 04/29/24 01:26 Pulse Rate 125 H 04/29/24 01:26 Respiratory Rate 20 04/29/24 01:26 Blood Pressure 107/76 04/29/24 01:26 Blood Pressure Mean 86 04/29/24 01:26 Blood Pressure Position Supine 04/29/24 01:26 Pulse Oximetry 99 04/29/24 01:26 Oxygen Delivery Method Room Air 04/29/24 01:26 Vital Signs Temperature 100.0 F H 04/29/24 01:26 Pulse Rate 125 H 04/29/24 01:26 Respiratory Rate 20 04/29/24 01:26 Blood Pressure 107/76 04/29/24 01:26 Pulse Oximetry 99 04/29/24 01:26 Oxygen Delivery Method Room Air 04/29/24 01:26 Temperature 100.0 F H 04/29/24 01:51 Pulse Rate 126 H 04/29/24 02:32 Respiratory Rate 20 04/29/24 02:32 Blood Pressure 118/82 04/29/24 02:32 Pulse Oximetry 97 04/29/24 02:32 Oxygen Delivery Method Room Air 04/29/24 01:51 Medications Administered Medications: Generic Name Dose Route Start Last Admin Trade Name Freq PRN Reason Stop Dose Admin Ciprofloxacin 400 mg in 200 mls @ 200 mls/hr 04/29/24 02:17 04/29/24 02:22 Ciprofloxacin IVPB 200 mls/hr Q12H VAIBHAV Administration Discontinued Medications Generic Name Dose Route Start Last Admin Trade Name Freq PRN Reason Stop Dose Admin Sodium Chloride 1,000 mls @ 1,000 mls/hr 04/29/24 01:50 04/29/24 02:58 0.9 % Sodium Chloride 1000 Ml IV 04/29/24 02:49 Infused .Q1H VAIBHAV Infusion Medical Decision Making Lab Data Labs: Lab Results 04/29/24 04/29/24 Range/Units 01:25 02:10 WBC 11.07 H (4.50-11.00) K/uL RBC 5.65 H (4.00-5.20) m/uL Hgb 17.0 H (12.0-16.0) gm/dL Hct 52.0 H (33.0-51.0) % MCV 92 (80-100) fL MCH 30 (26-34) pg MCHC 33 (32-36) gm/dL RDW Coeff of Kimber 12.6 (11.5-15.5) % Plt Count 196 (140-440) K/uL Neut % (Auto) 88.3 H (42.0-72.0) % Lymph % (Auto) 4.1 L (20-44) % [place] % (Auto) 6.7 (0.0-11.0) % Eos % (Auto) 0.6 (0.0-7.0) % Baso % (Auto) 0.1 (0.0-3.0) % Neut # (Auto) 9.80 H (1.7-7.0) K/uL Lymph # (Auto) 0.50 L (0.90-2.90) K/uL [place] # (Auto) 0.70 (0.00-0.90) K/UL Eos # (Auto) 0.10 (0.00-0.50) K/uL Baso # (Auto) 0.00 (0.00-0.30) K/uL Abs Immat Gran (auto) 0.00 (0.00-0.30) K/uL Imm/Tot Granulo (auto) 0.2 % Sodium 139 (135-149) mmol/L Potassium 3.7 (3.6-5.1) mmol/L Chloride 108 (96-114) mmol/L Carbon Dioxide 21 (20-32) mmol/L Anion Gap 10 (7-15) mEq/L BUN 26 H (5-24) mg/dL Creatinine 0.5 (0.5-1.5) mg/dL Estimated GFR 137 ml/min Glucose 117 H (60-115) mg/dL Lactate 1.1 (0.5-1.9) mmol/L Calcium 9.1 (8.4-10.6) mg/dL Procalcitonin 0.53 H (<0.50) ng/mL SARS-CoV-2 (PCR) Negative SARS-CoV-2 (Negative) Influenza Type A (PCR) Negative PCR FLU A (Negative) Influenza Type B (PCR) Negative PCR FLU B (Negative) RSV (PCR) Negative PCR RSV (Negative) Discharge Plan Discharge Clinical Impression: Febrile urinary tract infection, Neurogenic bladder Patient Disposition: Admitted As Inpatient Condition: Stable
[2024-04-29 02:15] LABS: Basophils Percent Auto 0.1 % (0.0-3.0); Eosinophils Percent Auto 0.6 % (0.0-7.0); Immature Granulocytes Pct Auto 0.2 %; Lymphocytes Percent Auto 4.1 % (20-44); Mean Corpuscular HGB Conc 33 gm/dL (32-36); Mean Corpuscular Hemoglobin 30 pg (26-34); Mean Corpuscular Volume 92 fL (80-100); Monocytes Percent Auto 6.7 % (0.0-11.0); Neutrophils Percent Auto 88.3 % (42.0-72.0); Platelet Count* 196 K/uL (140-440); RDW Coefficient of Variation % 12.6 % (11.5-15.5); Red Blood Count 5.65 m/uL (4.00-5.20); White Blood Count* 11.07 K/uL (4.50-11.00)
[2024-04-29 02:17] LABS: Slide Review Reflex No
[2024-04-29] MEDS: CIPROFLOXACIN 400 MG/200 ML PIGGYBACK 200 MG IVPB (02:22)
--- OUTSIDE RECORDS SUMMARY | 2024-04-29 02:22 | XMS_ITS | Continuity of Care Document ---
Author Organization Saritha Gurrola is Address [address] [place] [id number]- Care Team Providers Care Principal Web Developer Name Role Phone Lakshmi Guzman Primary Care Physician Encounter [facility] Date(s): 02/12/24 - 02/12/24 [facility] [address] [place], [place] [address] Discharge Disposition: Home/Self Care Attending Physician: Alessia [...] iven .diphtheria-pertussis, acel-tetanus ped 05/06/05 G iven .xtmgigk-bzbrq-xofhxka virus vaccine 01/18/08 Give n .qrnmduw-ygtgc-vjqvwvl virus vaccine 01/18/08 Give n .ivqgpmx-gkkib-vxzbush virus vaccine 09/15/03 Give n .poliovirus vaccine, inactivated 01/18/08 Given .poliovirus vaccine, inactivated 05/06/05 Given .varicella virus vaccine 01/18/08 Given .varicella virus vaccine 09/15/03 Given .kmdfzwfjbu-jloG-htnipbw,vfcx-wnlfr-lzb 05/27/03 G iven .qqxbcbwhrh-hhdL-jqumkim,auuu-pbqqu-cuu 03/21/03 G iven .jfwhmxfeue-lhyR-lpcoloi,musf-eamsp-sga 02 G iven .haemophilus B conjugate (PRP-T) [...] shunt Confirmed Active H/O hypercalcemia Confirmed Active PLANT OPERATOR HELPER (ventriculoperitoneal ) shunt status Confirmed Active History [...] Confirmed Active Urinary tract infection Confirmed Active PLANT OPERATOR HELPER shunt Confirmed Active patient Social History Social History Type Response Sex Female Goals LTG: Complete bowel manageme nt program 7/7 d/wk for daily stooling with social continence daily. Start Date:01/29/24 End Date:04/28/24 Status:Achieved Progression:Not Met STG: Demo management of cons tipation with bowel mgmt program x 3 mths for regular bowel movement. Start Date:01/29/24 End Date:04/28/24 Status:Achieved Progression:Not Met STG:Prob. solve w/ therapist 3 strat. for diff. portions of bowel routine success 24hr/day Start Date:01/29/24 End Date: Status:Achieved Progression:Not Met STG: will [...] Herbie Hammond MD, Lakshmi Ham Address: Address: [id number] [place] [address]
--- OUTSIDE RECORDS SUMMARY | 2024-04-29 02:22 | XMS_ITS | Continuity of Care Document ---
Author Organization Saritha Gurrola is Address [address] [place] [id number]- Care Team Providers Care Manager Culture Name Role Phone Lakshmi Guzman Primary Care Physician Encounter [facility] Date(s): 03/04/24 - 03/04/24 [facility] [address] [place] [address]- Encounter Diagnosis Neurogenic bladder(Discharge Diagnosis) - 03/04/24 Neurogenic bowel(Discharge Diagnosis) - 03/04/24 Other symptoms and signs involving the nervous system(Discharge Diagnosis) - 03/04/24 Myelomeningocele(Discharge Diagnosis) - 03/04/24 Discharge Disposition: Home/Self Care Attending Physician: Alessia [...] 03/18/09 Given influenza virus vaccine, unspec form 9/29/09 Give n influenza virus vaccine, unspec form 05/27/03 Give n .diphtheria-pertussis, acel-tetanus ped 01/18/08 G iven .diphtheria-pertussis, acel-tetanus ped 05/06/05 G iven .nosmqje-ntkdu-zjfdkhh virus vaccine 01/18/08 Give n .vxgosqb-rdmqc-wedflnw virus vaccine 01/18/08 Give n .rzomquk-qbart-mvpqkxi virus vaccine 09/15/03 Give n .poliovirus vaccine, inactivated 01/18/08 Given .poliovirus vaccine, inactivated 05/06/05 Given .varicella virus vaccine 01/18/08 Given .varicella virus vaccine 09/15/03 Given .djsyqgdjgw-pflU-lzwvzxq,ckbl-hqies-cxc 05/27/03 G iven .udxaexwnti-aepH-wmvsbjj,jear-lfgxm-itx 03/21/03 G iven .aretwababq-blnS-iqewdkz,ccbc-yeadw-mld 02 G iven .haemophilus B conjugate (PRP-T) [...] shunt Confirmed Active H/O hypercalcemia Confirmed Active ASSISTANT DEAN (ventriculoperitoneal ) shunt status Confirmed Active History [...] Confirmed Active Urinary tract infection Confirmed Active ASSISTANT DEAN shunt Confirmed Active patient Social History Social [...] Herbie Hammond MD, Lakshmi Ham Address: Address: [id number] [place] [address]
--- OUTSIDE RECORDS SUMMARY | 2024-04-29 02:22 | XMS_ITS | Clinical Summary ---
Author Organization [employer] [facility] Address [place], [place] [address] Care Team Providers Care Trolley Car Mechanic Name Role Phone Ignacia Duran MD Primary Care Provider [phone] Allergies Active Allergy Reactions Criticality Noted Date [...] Apply topically to affected area(s). 10 Each 6 10/29/2018 Active hydrocolloid dressing 4 X 4 bndgIndications:Skin infection Apply topically to affected area(s). 10 Each 6 04/20/2019 Active medication order composer Gentamicin 30 [...] recurrent major depressive d isorder 11/23/2018 S/P PEDIATRIC PSYCHOLOGIST shunt 04/29/2011 UTI (urinary tract infection) 04/24/2011 Paraplegia 02/21/2009 Spina bifida of dorsal region 02/21/2009 Resolved Problems Problem Noted Date Diagnosed Date Resolved Date Adjustment disorder with mix ed disturbance of emotions and conduct 07/04/2011 11/23/2018 Immunizations Name Administration Dates Next Due DTaP 01/18/2008,05/06/2005 [id number] (Pediarix) 05/27/2003,03/21/2003,0 2002 HIB PRP-T (ActHIB,Hiberix) 05/27/2003,03/21/2003 [...] Comments Blood Pressure 123/80 07/12/2021 1:30 PM COATING MIXER SUPERVISOR Pulse 98 07/12/2021 1:30 PM COATING MIXER SUPERVISOR Temperature 36.9 C (98.5 F) 07/12/2021 1:30 PM COATING MIXER SUPERVISOR Respiratory Rate 18 07/03/2015 5:27 PM COATING MIXER SUPERVISOR Oxygen Saturation 98% 07/12/2021 1:30 PM COATING MIXER SUPERVISOR Inhaled Oxygen Concentration - - Weight 61.2 kg (135 lb) 07/03/2015 5:27 PM COATING MIXER SUPERVISOR Height - - Body Mass Index [...] Documents on File Type Date Recorded Patient Helmet Hat Puncher Expl anation Power of Manager Unit 06/24/2023 1:00 PM Care Teams Trolley Car Mechanic Relationship Specialty Start Date End Date Ignacia Duran MD PCP - General Pediatric 10/07/19
--- OUTSIDE RECORDS SUMMARY | 2024-04-29 02:22 | XMS_ITS | Patient Health Record ---
Author Organization [facility] Address [facility] [address] [place] [address] Care Team Providers Care Conference Translator Name Role Phone Ignacia Duran MD Primary Care Provider [phone] ADOLFO PAZ MD Reason For Referral No Information Medications Medication SIG (Take, Route, Fr equency, Duration) Notes Start Date End Date Status Gentamicin Sulfate 40 MG/ML 30ML QHS Intravesically BID for 30 days 12/30/2019 Active Problems Problem Type SNOMED Code ICD Code Onset Dates Problem Status W/U Status Risk Notes Problem 821373976 Neurogenic bladd er (N31.9) Active confirmed Problem Hydrocephalus (589891196) Hydrocephalus (G91.9) Active confirmed Problem 69510118 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 Problem 451877999 Acute pyonephros is (N13.6) Active confirmed Problem 356705869 Obesity (BMI 30-39.9) (E66.9) Active confirmed Problem 36409621 Spina bifida of lumbosacral region with 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) Active confirmed Problem 73550128 Acute pyelonephritis (N10) Active confirmed Problem Sepsis (14213802) Sepsis, due to unspecified organism (A41.9) Active confirmed Problem 07833688 Bilateral nephrolithiasis (N20.0) Active confirmed Plan Of Treatment Pending Test Test Name Order Date UDS- Flow, ru, EMG, CMG w/UA/UC and mario tion 12/02/2019 Insurance Providers Payer Name Payer Address Payer Phone Subscriber Number Group Number Insured Name Patient Relationship to Insured Coverage Start Date Coverage End Date [facility] [address] [address] [place] [phone] [id number] Fe Escudero Child - Insured has Financial Responsibility [facility] [address] [address] [place] [address] [id number] Laina Escudero Self - patient is the insured
--- OUTSIDE RECORDS SUMMARY | 2024-04-29 02:23 | XMS_ITS | Referral Summary ---
Author Organization [place] Address [address] [place] [address] Care Team Providers Care Gm/Svp Global Publisher Business Name Role Phone Carlos Joyner MD Unavailable [phone] Jadon Murray MD Unavailable [phone] Maru Villagomez RN Unavailable Unavailable Ang Slade MD Unavailable [phone] Carlos Joyner MD Unavailable [phone] Ang Slade MD Unavailable [phone] Lakshmi Wilhelm PA-C Unavailable Heladio Willoughby MD Primary Care Provider [phone] Heladio Willoughby MD Unavailable Alissa Perez PA-C Unavailable [phone] Lakshmi Wilhelm PA-C Unavailable Aidee Valero PA-C Unavailable Encounters Date Type Department Care Team Description 04/28/2024 Travel 04/26/2024 Orders Only [facility] [address] [place] [address] Carlos Joyner MD Recurrent UTI (Primary Dx) 04/26/2024 MyC Medical Advice [facility] [address] [place] [address] Rosita Velasco RN 04/21/2024 Travel 04/21/2024 11:45 AM SYRUP MIXER HELPER Lab [facility] [address] [place] [phone] Recurrent UTI 04/21/2024 Orders Only [facility] [address] [phone] Carlos Joyner MD Recurrent UTI (Primary Dx) 04/21/2024 Telephone [facility] [address] [phone] Carlos Joyner MD Call Back (Pt still having UTI Symptoms. They are wanting to see about getting a new antibiotic. Please call Nurse manager cleaning at [phone]. Please call Yamini. As they would like to get something done prior to the holiday. Thanks ) 04/21/2024 Telephone [facility] [address] [place] [address] Heladio Willoughby MD 04/13/2024 Telephone [facility] [address] [place] [address] Heladio Willoughby MD Orders 04/13/2024 Documentation Only [facility] [address] [phone] Estrella Martinez NP Forms; Orders (Catheter, lubrication, gloves) 04/12/2024 Medical Correspondence [facility] [address] [facility] [address] [place] [address] Scan, Non-Provider 04/01/2024 MyC Medical Advice [facility] [address] [phone] Aidee Valero PA-C 03/30/2024 Telephone [facility] [address] [phone] Aidee Valero PA-C 03/30/2024 Travel 03/30/2024 PRE VISIT [facility] [address] [phone] Aidee Valero PA-C Previsit 03/30/2024 1:40 PM SYRUP MIXER HELPER Ancillary Procedure [facility] Xray [address] [phone] Aidee Valero PA-C Thoracic spina bifida, unspecified hydrocephalus presence (H) 03/30/2024 2:00 PM SYRUP MIXER HELPER Office Visit [facility] [address] [phone] Aidee Valero PA-C History of spinal fusion (Primary Dx); Thoracic spina bifida, unspecified hydrocephalus presence (H) 03/25/2024 Travel 03/23/2024 Orders Only [facility] [address] [phone] Aidee Valero PA-C Thoracic spina bifida, unspecified hydrocephalus presence (H) (Primary Dx) 03/09/2024 Telephone [facility] [address] [phone] Aidee Valero PA-C 03/09/2024 Telephone [facility] [address] [phone] Unknown, MD Ronak Appointment 03/05/2024 Travel 03/05/2024 10:45 AM CDT Lab [facility] [address] [place] [phone] Kidney stone 03/02/2024 Orders Only [facility] [address] [phone] Carlos Joyner MD Kidney stone (Primary Dx) 03/02/2024 MyC Medical Advice [facility] [address] [phone] Carlos Joyner MD Recurrent UTI (Primary Dx) 02/14/2024 Refill [facility] [address] [place] [phone] Carlos Joyner MD Medication Refill (Potassium Chloride Marcie ER Oral Tablet Extended Release 10 MEQ) 02/13/2024 [facility] Medical Advice [facility] [address] [place] [phone] Carlos Joyner MD 02/06/2024 MyC Medical Advice [address] [phone] Heladio Willoughby MD Forms (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 Last 3 Months Allergies Active Allergy Reactions Criticality Noted Date Comments Ibuprofen Nephrotoxicity 02/04/2023 Due to hx of horseshoe kidney and recurrent nephrolithiasis Latex 10/04/2010 PN: Converted from LW Latex Sensitivity Flag Nsaids Nephrotoxicity 04/16/2023 Due to hx of horseshoe kidney and nephrolithiasis Vancomycin 02/17/2011 Other reaction(s): redmans Other reaction(s): redmans Medications docusate sodium (COLACE) 100 MG capsule Take 100 mg by mouth every evening Active Elastic Bandages & Supports (PATEL ELASTIC BANDAGE 4) MISC Apply 1 each topically 11/10/19 19 Active Multiple Vitamin (MULTI-VITAMINS) TABS Take 1 tablet by mouth every evening Active sodium chloride 0.9%, bottle, 0.9 % irrigation Irrigate with 60 mLs as directed 2 times daily Instill 60 ml into bladder along with Gentamicin solution Active MONOJECT HYPODERMIC NEEDLE 18G X 1 MISC USE TO FLUSH BLADDER 11/09/19 20 Active B-D SYRINGE LUER-OLGA 30 ML MISC USE TO FLUSH BLADDER 11/09/19 20 Active NEW MEDIndications:Rec urrent UTI 480 MG Gentamicin in 1 Liter 0.9 Normal Saline. Instill 60 mL of Gentamicin solution into bladder at HS 1800 mL 11 03/15/20 20 Active Saline Bacteriostatic (SODIUM CHLORIDE BACTERIOSTATIC) 0.9 % SOLN flushIndications:R ecurrent UTI Irrigate with 30 mLs as directed At Bedtime for 31 doses 930 mL 11 08/10/19 Active NEW MEDIndications:DUP ICATE 480mg Gentamicin in one liter of Normal Saline. Instill 30 ml of gentamicin solution into bladder at bedtime 930 mL 08/10/19 Active acetaminophen (TYLENOL) 325 MG tablet Take 325-650 mg by mouth every 6 hours as needed for mild pain Active bisacodyl (DULCOLAX) 5 MG EC tablet 0 Refill(s), Maintenance 03/13/20 Active polyethylene glycol (MIRALAX) 17 GM/Dose powder See Instructions, 1-3 tsp as needed to maintain soft stools, # 527 g, 1 Refill(s), Maintenance, other 03/13/20 Active Wound Dressings (MEDIHONEY CA ALGINATE 2X2) PADSIndications:Pr essure ulcer acquired in formerly [facility] Externally apply 1 each topically daily 10 each 04/16/20 23 Active indapamide (LOZOL) 1.25 MG tabletIndications: Hypercalciuria Take 1 tablet (1.25 mg) by mouth every morning 90 tablet 3 06/17/19 24 Active potassium chloride ER (K-TAB) 20 MEQ CR tabletIndications: Hypercalciuria Take 1 tablet (20 mEq) by mouth daily 90 tablet 3 06/17/19 24 Active gentamicin (GARAMYCIN) 40 MG/ML injection 40 mg 11/11/19 24 Active oxyBUTYnin (DITROPAN) 5 MG tabletIndications: Bladder spasms TAKE ONE TABLET BY MOUTH TWICE DAILY 180 tablet 2 12/24/19 24 Active potassium chloride marcie ER (KLOR-CON M10) 10 MEQ CR tabletIndications: Hypercalciuria TAKE ONE TABLET BY MOUTH TWICE DAILY 90 tablet 3 02/20/20 24 Active nitroFURantoin macrocrystal-monoh ydrate (MACROBID) 100 MG capsuleIndications :Recurrent UTI Take 1 capsule (100 mg) by mouth 2 times daily. 14 capsule 03/09/20 24 Active ciprofloxacin (CIPRO) 500 MG tabletIndications: Recurrent UTI Take 1 tablet (500 mg) by mouth 2 times daily for 7 days. 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 Was on heparin injections. 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 07/22/2003 Overview (03/14/2020): LW Onset: 05Mgp42 ; Short Stature 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/22/2003 Overview (04/16/2023): LW Modifier: shunted LW Onset: 10Jjz12 ; Spina Bifida Lumbar w Hydrocephalus Resolved Problems Problem Noted Date Diagnosed Date Resolved Date Acute kidney failure, unspecified 02/10/2020 03/05/2023 Immunizations Name Administration Dates Next Due DTAP (<7y) 01/18/2008,05/06/2005 DTaP, Unspecified 01/16/2015 DTaP/HepB/IPV 05/27/2003,03/21/2003,2002 Flu, Unspecified 02/26/2016,02/21/2009, 4 D2q8-22 Novel Flu 03/18/2009 [id number] Novel Flu P-free 03/30/2004,05/27/2003 HEPATITIS A (PEDS 12M-18Y) 01/18/2008,08/08/2006 HIB (PRP-T) 05/27/2003,03/21/2003,2002 HIB, Unspecified 05/27/2003,03/21/2003, 3 HPV9 04/16/2023,06/17/2019,12/18/2017 Influenza (H1N1) 03/18/2009 Influenza (IIV3) PF 06/09/2013, 2,02/25/2011,02/21,03/23/2007,03/30/2004 Influenza (prior to 2023) 04/23/2012,07/2010,02/21/2009,03/23,03/30/2004,05/27/2003 Influenza Vaccine 18-64 (Flublok) 03/05/2023 Influenza Vaccine >6 months,quad, PF 12/2021,03/27/2021,03/22/2020,06/17,03/06/2018,02/26/2016,04/27/2014 Influenza Vaccine, 6+MO IM (QUADRIVALENT W/PRESERVATIVES) 05/02/2022,03/27/2021 MMR 01/18/2008,09/15/2003 Meningococcal ACWY (Menveo ) 06/17/2019,01/16/2015 Pneumococcal (PCV 7) 05/27/2003,03/21/2003,11/22 Poliovirus, inactivated (IPV) [...] you bought just not last and you didn t have money to get more? No 04/16/2023 Housing Stability Answer Date Recorded Do you have housing? (Joey cordero is defined as stable permanent housing and does not include staying ouside in a car, in a tent, in an abandoned building, in an overnight half-way, or couch-surfing.) Yes 04/16/2023 Are you worried [...] getting things that you need? Yes 04/16/2023 Comments No Sex and Gender Information Value Date Recorded Sex Assigned at Not on file Legal Sex Female 3:09 PM CDT Gender Identity Not on file Sexual Orientation Not on file Last Filed Vital Signs Vital Sign Reading Time Taken Comments Blood Pressure 127/83 12/08/2023 9:35 AM CDT Pulse 71 12/08/2023 9:35 AM CDT Temperature 36.9 C (98.4 F) 09/02/2023 10:55 AM CDT Respiratory Rate 20 09/02/2023 10:55 AM CDT Oxygen Saturation 99% 12/08/2023 9:35 AM CDT Inhaled Oxygen Concentration - - Weight 61.2 kg (135 lb) 03/30/2024 2:01 PM SYRUP MIXER HELPER Height 147.3 cm (4' 10) 03/30/2024 2:01 PM SYRUP MIXER HELPER Body Mass Index 28.22 03/30/2024 2:01 PM SYRUP MIXER HELPER Plan of Treatment Upcoming Encounters Date Type Department Care Team (Late st Contact Info) Description 04/29/2024 5:00 PM SYRUP MIXER HELPER Office Visit [facility] [address] [place] [address] Carlene Knight APRN FIRE CLAIMS ADJUSTER [address] [place] [address] 06/15/2024 9:30 AM SYRUP MIXER HELPER Office Visit [facility] [address] [phone] Xu Prince MD [address] [place] [address] 07/21/2024 4:00 PM SYRUP MIXER HELPER Office Visit [facility] [address] [place] [address] [place] [address] [place] [address] Medical Devices Implanted Type Area Licensed Retail Supervisor Device Identifier Shelf Expiration Date Model / Serial / Lot Stent Ureteral Percuflex Plus [id number] - [id number] Implanted:Qty: 1 on 11/12/2021 by Carlos Joyner MD at [facility] Stent Right: Abdomen [employer] [id number] 12/26/2022 [id number] Ureteral Catheter 5 [place] Implanted:Qty: 1 on 03/31/2023 by Elizabeth Jacobsen MD at [facility] Right: Ureter 02/02/2026 [id number] Description:5 indonesian Uretera l catheter used as a stent in right ureter 5 [place] Open Ended Catheter Implanted:Qty: 1 on 03/31/2023 by Elizabeth Jacobsen MD at [facility] Left: Ureter 02/19/2026 [id number] / / [id number] Explanted Type Area Licensed Retail Supervisor Device Identifier Shelf Expiration Date Model / Serial / Lot Stent Ureteral Percuflex Plus [id number] - [id number] Implanted:Qty: 1 on 05/10/2021 by Carlos Joyner MD at [facility] Explanted:Qty: 1 on 08/09/2021 by Jane Gomez MD at [facility] Stent Right: Urethra [employer] 06/14/2022 [id number] / [id number] Description:Ureter Stent Ureteral Percuflex Plus [id number] - [id number] Implanted:Qty: 1 on 05/10/2021 by Carlos Joyner MD at [facility] Explanted:Qty: 1 on 08/09/2021 by Jane Gomez MD at [facility] Stent Left: Urethra [employer] 07/25/2022 [id number] Stent Ureteral Percuflex Plus [id number] - [id number] Implanted:Qty: 1 on 08/09/2021 by Jane Gomez MD at [facility] Explanted:Qty: 1 on 11/12/2021 at [facility] Stent Right: Ureter [employer] 02/29/2024 [id number] Stent Ureteral Percuflex Plus [id number] - [id number] Implanted:Qty: 1 on 08/09/2021 by Jane Gomez MD at [facility] Explanted:Qty: 1 on 11/12/2021 at [facility] Stent Right: Ureter [employer] 02/29/2024 [id number] / / [id number] 5 Fr X 22cm Ureteral Stent Explanted:Qty: 1 on 02/07/2020 by Carlos Joyner MD at [facility] COOK 5 Fr X 22cm Ureteral Stent Explanted:Qty: 1 on 02/07/2020 by Carlos Joyner MD at [facility] COOK Procedures Procedure Name Priority Date/Time Associated Diagnosis Comments URINE CULTURE Routine 04/21/2024 10:30 AM SYRUP MIXER HELPER Recurrent UTI URINE MICROSCOPIC EXAM Routine 04/21/2024 10:30 AM SYRUP MIXER HELPER Recurrent UTI ROUTINE UA WITH MICROSCOPIC Routine 04/21/2024 10:30 AM SYRUP MIXER HELPER Recurrent UTI XR SPINE COMPLETE SCOLIOSIS 2 VIEWS Routine 03/30/2024 1:38 PM SYRUP MIXER HELPER Thoracic spina bifida, unspecified hydrocephalus presence (H) URINE CULTURE Routine 03/05/2024 7:30 AM CDT Kidney stone URINE MICROSCOPIC EXAM Routine 03/05/2024 7:30 AM CDT Kidney stone ROUTINE UA WITH MICROSCOPIC Routine 03/05/2024 7:30 AM CDT Kidney stone from Last 3 Months Results * (ABNORMAL) UA with Microscopic (04/21/2024 10:30 AM SYRUP MIXER HELPER) Only the most recent of2 resultswithin the time period is included. Color Urine Yellow Colorless, Straw, Light Yellow, Yellow 04/21/2024 11:45 AM SYRUP MIXER HELPER [facility] Appearance Urine Clear Clear 04/21/20 11:45 AM SYRUP MIXER HELPER [facility] Glucose Urine Negative Negative mg/dL 04/21/2024 11:45 AM SYRUP MIXER HELPER [facility] Bilirubin Urine Negative Negative 4 11:45 AM SYRUP MIXER HELPER [facility] Ketones Urine Negative Negative mg/dL 04/21/2024 11:45 AM SYRUP MIXER HELPER [facility] Specific [place] Urine 1.020 1.003 - 1.035 04/21/2024 11:45 AM SYRUP MIXER HELPER LABORATORY Blood Urine Negative Negative 04/21/2024 11:45 AM SYRUP MIXER HELPER LABORATORY pH Urine 6.5 5.0 - 7.0 04/21/2024 11:45 AM SYRUP MIXER HELPER LABORATORY Protein Albumin Urine Negative Negative mg/dL 04/21/2024 11:45 AM SYRUP MIXER HELPER LABORATORY Urobilinogen Urine 0.2 0.2, 1.0 E.U./dL 04/21/2024 11:45 AM SYRUP MIXER HELPER LABORATORY Nitrite Urine Positive(A) Negative 04/21/2024 11:45 AM SYRUP MIXER HELPER LABORATORY Leukocyte Esterase Urine Large(A) Negative 04/21/2024 11:45 AM SYRUP MIXER HELPER LABORATORY Urine URINE SPECIMEN OBTAINED BY CLEAN CATCH PROCEDURE / Unknown Non-blood Collection / Unknown 04/21/2024 10:30 AM SYRUP MIXER HELPER 04/21/2024 11:40 AM SYRUP MIXER HELPER Carlos Joyner MD LAB - URINE ORDERABLES Fin al Result LABORATORY [facility] [address] [facility] (no room number, 1st floor of clinic) [place] [address], [facility] * (ABNORMAL) Urine Microscopic Exam (04/21/2024 10:30 AM SYRUP MIXER HELPER) Only the most recent of2 resultswithin the time period is included. Bacteria Urine Moderate( A) None Seen /HPF LINDA 04/21/2024 11:48 AM SYRUP MIXER HELPER LABORATORY RBC Urine 2-5(A) 0-2 /HPF /HPF LINDA 04/21/2024 11:48 AM SYRUP MIXER HELPER LABORATORY WBC Urine 25-50(A) 0-5 /HPF /HPF LINDA 04/21/2024 11:48 AM SYRUP MIXER HELPER LABORATORY Squamous Epithelials Urine Few(A) None Seen /LPF LINDA 04/21/2024 11:48 AM SYRUP MIXER HELPER LABORATORY Urine URINE SPECIMEN OBTAINED BY CLEAN CATCH PROCEDURE / Unknown Non-blood Collection / Unknown 04/21/2024 10:30 AM SYRUP MIXER HELPER 04/21/2024 11:40 AM SYRUP MIXER HELPER Carlos Joyner MD LAB - URINE ORDERABLES Fin al Result LABORATORY [facility] [address] [facility] (no room number, 1st floor of clinic) [place] [address], [facility] * (ABNORMAL) Urine Culture (04/21/2024 10:30 AM SYRUP MIXER HELPER) Only the most recent of2 resultswithin the time period is included. Culture >100,000 CFU/mL Escherichia coli(A) LINDA 04/23/2024 8:04 PM SYRUP MIXER HELPER [facility] Culture >100,000 CFU/mL Enterobacter cloacae complex(A) 04/23/2024 8:04 PM SYRUP MIXER HELPER [facility] Urine MID-STREAM URINE SPECIMEN / Unknown Non-blood Collection / Unknown 04/21/2024 10:30 AM SYRUP MIXER HELPER 04/21/2024 11:40 AM SYRUP MIXER HELPER Narrative Organism Antibiotic Method Susceptibility Escherichia coli Ampicillin LINDA <=2 ug/mL: Susceptible Escherichia coli Ampicillin/ Sulbactam LINDA <=2 ug/mL: Susceptible Escherichia coli Piperacillin/Tazobactam LINDA <=4 ug/mL: Susceptible Escherichia coli Cefazolin LINDA <=4 ug/mL: Susceptible Comment:Cefazolin NH C breakpoints are for the treatment of uncomplicated urinary tract infections. For the treatment of systemic infections, please contact the laboratory for additional testing. Escherichia coli Cefoxitin LINDA <=4 ug/mL: Susceptible Escherichia coli Ceftazidime LINDA <=1 ug/mL: Susceptible Escherichia coli Ceftriaxone LINDA <=1 ug/mL: Susceptible Escherichia coli Cefepime LINDA <=1 ug/mL: Susceptible Escherichia coli Gentamicin LINDA <=1 ug/mL: Susceptible Escherichia coli Tobramycin LINDA <=1 ug/mL: Susceptible Escherichia coli Ciprofloxacin LINDA <=0.25 ug/mL: Susceptible Escherichia coli Levofloxacin LINDA <=0.12 ug/mL: Susceptible Escherichia coli Nitrofurantoin LINDA <=16 ug/mL: Susceptible Escherichia coli Trimethoprim/Sulfame thoxaz ole LINDA <=1/19 ug/mL: Susceptible Enterobacter cloacae complex Ampicillin ILNDA Resistant Comment:Intrinsicall y Resistant Enterobacter cloacae complex Ampicillin/ Sulbactam LINDA Resistant Comment:Intrinsicall y Resistant Enterobacter cloacae complex Piperacillin/Tazobactam LINDA Resistant Enterobacter cloacae complex Cefazolin LINDA Resistant Comment: Cefazolin LINDA breakpoints are for the treatment of uncomplicated urinary tract infections. For the treatment of systemic infections, please contact the laboratory for additional testing. Intrinsically Resistant Enterobacter cloacae complex Cefoxitin LINDA Resistant Comment:Intrinsicall y Resistant Enterobacter cloacae complex Ceftazidime LINDA Resistant Enterobacter cloacae complex Ceftriaxone LINDA Resistant Enterobacter cloacae complex Cefepime LINDA <=1 ug/mL: Susceptible Enterobacter cloacae complex Gentamicin LINDA <=1 ug/mL: Susceptible Enterobacter cloacae complex Tobramycin LINDA <=1 ug/mL: Susceptible Enterobacter cloacae complex Ciprofloxacin LINDA <=0.25 ug/mL: Susceptible Enterobacter cloacae complex Levofloxacin LINDA <=0.12 ug/mL: Susceptible Enterobacter cloacae complex Nitrofurantoin LINDA 64 ug/mL: Intermediate Enterobacter cloacae complex Trimethoprim/Sulfamethoxaz ole LINDA <=1/19 ug/mL: Susceptible Comment: Enterobacter cloacae, Klebsiella aerogenes, and Citrobacter freundii have moderate to high levels of inducible AmpC -lactamase expression. The use of 3rd generation cephalosporins including ceftriaxone and ceftazidime, as well as piperacillin-tazobactam, should be avoided for invasive infections, regardless of susceptibility results. Carlos Joyner MD LAB - MICRO GENERAL ORDERA BLES Final Result [facility] Inf. Diseases Diag. Lab [facility], [address] [place], [place] [id number] * XR Spine Complete Scoliosis 2 Views (03/30/2024 1:38 PM SYRUP MIXER HELPER) Anatomical Region Laterality Modality Spine Computed Radiogr aphy Impressions 03/31/2024 1:57 PM SYRUP MIXER HELPER Impression: 1. Postoperative changes of T10 through pelvis fusion without evidence of hardware complication. 2. No substantial coronal curvature of the spine. 3. Negative global coronal imbalance. 4. Positive global sagittal imbalance. MILLA CHOI DO Narrative 03/31/2024 1:57 PM SYRUP MIXER HELPER Exam: Full spine radiographs using EOS History: Thoracic spina bifida, unspecified hydrocephalus presence (H) Comparison: None. Findings: 12 rib bearing vertebral bodies and 5 lumbar type vertebral bodies are used for the purpose of this dictation. Postoperative changes of T10 through pelvis fusion. Hardware appears intact without evidence of complication. Coronal Deformity: There is no substantial coronal curvature of the spine. Negative global coronal imbalance. Sagittal Vertical [place] (A vertical line drawn from the center of C7 (sang line) to the posterosuperior aspect of the S1 on sagittal plane): positive Additional Findings: Focal kyphosis centered about the T9 level. There is otherwise straightening of the spine with loss of the normal lordotic and kyphotic curvatures. No acute osseous abnormality. Nonobstructive bowel gas pattern with prominent gaseous distended large bowel in the right upper quadrant. Low lung volumes without acute airspace disease. Procedure Note Milla Choi MD - 03/31/2024 Exam: Full spine radiographs using EOS History: Thoracic spina bifida, unspecified hydrocephalus presence (H) Comparison: None. Findings: 12 rib bearing vertebral bodies and 5 lumbar type vertebral bodies are used for the purpose of this dictation. Postoperative changes of T10 through pelvis fusion. Hardware appears intact without evidence of complication. Coronal Deformity: There is no substantial coronal curvature of the spine. Negative global coronal imbalance. Sagittal Vertical [place] (A vertical line drawn from the center of C7 (sang line) to the posterosuperior aspect of the S1 on sagittal plane): positive Additional Findings: Focal kyphosis centered about the T9 level. There is otherwise straightening of the spine with loss of the normal lordotic and kyphotic curvatures. No acute osseous abnormality. Nonobstructive bowel gas pattern with prominent gaseous distended large bowel in the right upper quadrant. Low lung volumes without acute airspace disease. Impression: 1. Postoperative changes of T10 through pelvis fusion without evidence of hardware complication. 2. No substantial coronal curvature of the spine. 3. Negative global coronal imbalance. 4. Positive global sagittal imbalance. MILLA CHOI DO Aidee Valero PA-C IMG DIAGNOSTIC IMAGING ORDER ERROL Final Result from Last 3 Months Insurance [place] [facility] INDIVIDUAL [facility] [place]DIVIDUAL [place] [facility] INDIVIDUAL [facility] INDIV[place]UAL [place] Advance Directives For more information, please contact: [phone] Documents on File Type Date Recorded Patient Bisque Brusher Expl anation Advance Directives and Living Will [...] continue PREVIOUSLY ORDERED code status Care Teams Gm/Svp Global Publisher Business Relationship Specialty Start Date End [place] [address] [place] [address] PCP - General 03/05/23 Carlos Joyner MD [address] [place] [address] 327555 Urology 12/09/19 Jadon Murray MD [facility] [address] [facility] 550 [place] [address] Referring Physician Pediatric Surgery 12/09/19 Maru Villagomez, RN Registered Nurse 12/10/19 Ang Slade MD [address] [place] [address] 394 [place], [place] [phone] Urology 04/24/20 Carlos Joyner MD [address] [place] [address] 220995 Assigned Surgical Provider 12/24/20 Ang Slade MD [address] [place] [address] [id number] MD Urology 12/18/22 Lakshmi Wilhelm PA-C [address] [place] [address] 969895 Physician Ophthalmic Technologist Urology 02/03/23 [place] [address] [place] [address] Assigned PCP 02/06/23 Alissa Perez PA-C [address] [place] [address] 757685 Physician Ophthalmic Technologist Surgery 09/04/23 Lakshmi Wilhelm PA-C [address] [place] [address] 466075 Physician Ophthalmic Technologist Urology 09/16/23 Aidee Valero PA-C [address] [place] [address] 195775 Assigned Musculoskeletal Provider 04/17/24 Tanisha Marlow 4120 [facility] [address] 03/30/24
--- OUTSIDE RECORDS SUMMARY | 2024-04-29 02:23 | XMS_ITS | Encounter Summary ---
Author Organization [place] Address [address] [place] [address] Care Team Providers Care Stocklayer Name Role Phone Carlos Joyner MD Unavailable [phone] Jadon Murray MD Unavailable [phone] Maru Villagomez RN Unavailable Unavailable Ang Slade MD Unavailable [phone] Carlos Joyner MD Unavailable [phone] Ang Slade MD Unavailable [phone] Lakshmi Wilhelm-C Unavailable [phone] Heladio Willoughby MD Primary Care Provider [phone] Heladio Willoughby MD Unavailable Alissa Perez PA-C Unavailable [phone] Lakshmi Wilhelm-C Unavailable [phone] Aidee Valero PA-C Unavailable [phone] Reason for Visit * Reason Onset Date Comments Call Back 04/21/2024 Pt still having UTI Symptoms. They are wanting to see about getting a new antibiotic. Please call Nurse technical manager at [phone]. Please call Yamini. As they would like to get something done prior to the holiday. Thanks Encounter Details Date Type Department Care Team ([facility] st Contact Info) Description 04/21/2024 Telephone [facility] [address] 4th [place] [address] Carlos Joyner MD [address] [place] [address] Call Back (Pt still having UTI Symptoms. They are wanting to see about getting a new antibiotic. Please call Nurse technical manager at [phone]. Please call Yamini. As they would like to get something done prior to the holiday. Thanks ) Social History Tobacco Use Types Packs/Day [...] in an abandoned building, in an overnight snf, or couch-surfing.) Yes 04/16/2023 Are you worried [...] encounter Miscellaneous Notes * Telephone Encounter - Yoli Benjamin - 04/21/2024 8:39 AM CST [facility] Phone Message May a detailed message be left on voicemail: no Reason for Call: Other: Pt still having UTI Symptoms. They are wanting to see about getting a new antibiotic. Please call Nurse technical manager at [phone]. Please call Yamini. As they would like to get something done prior to the holiday. Thanks Action Taken: Other: uro Travel Screening: Not Applicable Date of Service: R CUTTER MACHINE documented in this encounter Plan of Treatment Upcoming Encounters Date Type Department Care Team (Late st Contact Info) Description 04/29/2024 5:00 PM COVER CUTTER MACHINE Office Visit [facility] [address] [place] [address] Carlene Knight APRN [facility] [address] [place], [place] [phone] 06/15/2024 9:30 AM COVER CUTTER MACHINE Office Visit [address] [phone] Xu Prince MD [address] [place] [address] 07/21/2024 4:00 PM COVER CUTTER MACHINE Office Visit [facility] [address] [place] [address] [place] [address] [place], [place] 7991968 documented as of this encounter Visit Diagnoses Not on filedocumented in this encounter Care Teams Stocklayer Relationship Specialty Start [place] [address] [place], [place] [phone] PCP - General 03/05/23 Carlos Joyner MD [address] [place], [place] [phone] Urology 12/09/19 Jadon Murray MD [facility] [address] [facility] 550 [place] [address] Referring Physician Pediatric Surgery 12/09/19 Maru Villagomez, RN Registered Nurse 12/10/19 Ang Slade MD 420 [facility] 394 [place], [place] 222515 Urology 04/24/20 Carlos Joyner MD [address] [place] [address] 404825 Assigned Surgical Provider 12/24/20 Ang Slade MD [address] [place] [address] 394 [place], [place] 261435 Urology 12/18/22 Lakshmi Wilhelm PA-C [address] [place] [address] 264765 Physician Master Brewer Urology 02/03/23 [place] [address] [place] [address] Assigned PCP 02/06/23 Alissa Perez PA-C [address] [place] [address] 851235 Physician Master Brewer Surgery 09/04/23 Lakshmi Wilhelm PA-C [address] [place] [address] Physician Master Brewer Urology 09/16/23 Aidee Valreo, [facility] 9 [place] [address] Assigned Musculoskeletal Provider 04/17/24 Tanisha Marlow 4120 [facility] [address] 03/30/24 documented as of this encounter
--- OUTSIDE RECORDS SUMMARY | 2024-04-29 02:23 | XMS_ITS | Encounter Summary ---
Author Organization [place] Address [address] [place] [address] Care Team Providers Care Soil Field Technician Name Role Phone Carlos Joyner MD Unavailable [phone] Jadon Murray MD Unavailable [phone] Maru Villagomez RN Unavailable Unavailable Ang Slade MD Unavailable [phone] Carlos Joyner MD Unavailable [phone] Ang Slade MD Unavailable [phone] Lakshmi Wilhelm-C Unavailable [phone] Heladio Willoughby MD Primary Care Provider [phone] Heladio Willoughby MD Unavailable Alissa Perez PA-C Unavailable [phone] Lakshmi Wilhelm-C Unavailable [phone] Aidee Valero PA-C Unavailable [phone] Encounter Details Date Type Department Care Team (Latest Contact Info) Description 04/21/2024 Travel Social History Tobacco Use Types Packs/Day [...] st Contact Info) Description 04/29/2024 5:00 PM DRIER TAKE OFF TENDER Office Visit [facility] [address] [place] [phone] Carlene Knight APRN MULTIPLE RESAW OPERATOR [address] [place], [place] 1013868 06/15/2024 9:30 AM DRIER TAKE OFF TENDER Office Visit [facility] [address] [place] [address] Xu Prince MD [address] [address] 07/21/2024 4:00 PM DRIER TAKE OFF TENDER [facility] [address] [place] [phone] [place] [address] [place] [address] documented as of this encounter Visit Diagnoses Not on filedocumented in this encounter Care Teams Soil Field Technician Relationship Specialty Start [place] [address] [place] [address] PCP - General 03/05/23 Carlos Joyner MD [address] [place] [address] 835155 Urology 12/09/19 Jadon Murray MD [facility] 2530 [facility] 550 [place], [place] [phone] Referring Physician Pediatric Surgery 12/09/19 Maru Villagomez, RN Registered Nurse 12/10/19 Ang Slade MD [address] [place] [address] 528055 Urology 04/24/20 Carlos Joyner MD [address] [place] [address] 930715 Assigned Surgical Provider 12/24/20 Ang Slade MD [address] [place] [address] Urology 12/18/22 Lakshmi Wilhelm PA-C [address] [place] [address] 95011 Physician Gridcap Machine Operator Urology 02/03/23 [place] [address] [place] [address] Assigned PCP 02/06/23 Alissa Perez PA-C [address] [place] [address] Physician Gridcap Machine Operator Surgery 09/04/23 Lakshmi Wilhelm PA-C [address] [place] [address] Physician Gridcap Machine Operator Urology 09/16/23 Aidee Valero PA-C [address] [place] [address] Assigned Musculoskeletal Provider 04/17/24 Tanisha Marlow 4120 [facility] [address] 03/30/24 documented as of this encounter
--- OUTSIDE RECORDS SUMMARY | 2024-04-29 02:23 | XMS_ITS | Encounter Summary ---
Author Organization [place] Address [address] [place] [address]. [place] [address] Care Team Providers Care Radio Control Crane Operator Name Role Phone Carlos Joyner MD Unavailable [phone] Jadon Murray MD Unavailable [phone] Maru Villagomez RN Unavailable Unavailable Ang Slade MD Unavailable [phone] Carlos Joyner MD Unavailable [phone] Ang Slade MD Unavailable [phone] Lakshmi Wilhelm-C Unavailable [phone] Heladio Willoughby MD Primary Care Provider [phone] Heladio Willoughby MD Unavailable Alissa Perez PA-C Unavailable [phone] Lakshmi Wilhelm-C Unavailable [phone] Reason for Visit * Reason Onset Date Comments Orders 04/13/2024 Encounter Details Date Type Department Care Team (Late st Contact Info) Description 04/13/2024 Telephone [facility] [address] [place] [address] [place] [address] [place] [address] Orders Social History Tobacco Use [...] in an abandoned building, in an overnight chcf, or couch-surfing.) Yes 04/16/2023 Are you worried [...] * Telephone Encounter - Kasia Gutierrez - 04/16/2024 10:52 AM CST Scheduled. Kasia Gutierrez Lead Labor Relations Analyst [facility] Y[facility] [place] UTION CONTROL TECHNICIAN * Telephone Encounter - Heladio Willoughby MD - 04/16/2024 10:41 AM CST If standing order is , does need follow up visit to discuss. Please let them know and help set up appt. Thanks, Heladio Willoughby MD [facility] Cherelle Haines 04/16/2024 UTION CONTROL TECHNICIAN * Telephone Encounter - Tanisha Quiros RN - 04/13/2024 4:33 PM CST Routing to NE team. I do not administer depo, unsure if order is active. Can someone confirm if standing order is active? Tanisha Quiros RN on 04/13/2024 at 4:34 PM UTION CONTROL TECHNICIAN * Telephone Encounter - Heladio Willoughby MD - 04/13/2024 3:53 PM CST If there are standing orders for depo that have not yet , ok to provide depo shot so long asshe has not been sexually active for the past 2 weeks and we obtain a urine hCG on day of depo. Will discuss alternative, better forms of control at upcoming physical on 06/2024. Please let them know. Thanks, Heladio Willoughby MD [facility] 04/13/2024 UTION CONTROL TECHNICIAN * Telephone Encounter - Oliva Muñoz RN - 04/13/2024 2:20 PM CST Tanisha, guardian calling [phone]. I scheduled her physical for 07/21/23. Needs physical and to discuss control options. Patient currently has her period. Got period last month also and now. Tanisha feels this period started the 17th or 18th. She is having cramps and upset stomach. Tanisha states she was told by Dr. Willoughby she should not be on depo more than a year. Has been a year and is overdue for depo but Laina would like to get depo. Wondering if can get depo and discuss control options at visit on 07/21/23. Please advise. Oliva Muñoz RN UTION CONTROL TECHNICIAN documented in this encounter Plan of Treatment Upcoming Encounters Date Type Department Care Team (Late st Contact Info) Description 04/29/2024 5:00 PM POLLUTION CONTROL TECHNICIAN [facility] [address] [place] [phone] [place] CHARGE ATTENDANT [facility] [address] [place], [place] 8007468 06/15/2024 9:30 AM POLLUTION CONTROL TECHNICIAN Office Visit [facility] [address] [place] [phone] Xu Prince MD [address] [place] [address] 106 [place] [address] 07/21/2024 4:00 PM POLLUTION CONTROL TECHNICIAN [facility] [address] [place] [address] [place] [address] [place], [place] 5849168 documented as of this encounter Visit Diagnoses Not on filedocumented in this encounter Care Teams Radio Control Crane Operator Relationship Specialty Start Date End Date Heladio [place] [address] [place] [address] 4983368 PCP - General 03/05/23 Carlos Joyner MD [address] [place] [address] Urology 12/09/19 Jadon Murray MD [facility] 2530 [facility] 550 [place] [address] Referring Physician Pediatric Surgery 12/09/19 Maru Villagomez, RN Registered Nurse 12/10/19 Ang Slade MD [address] [address] Urology 04/24/20 Cralos Joyner MD [address] [place] [address] Assigned Surgical Provider 12/24/20 Ang Slade MD [address] [place] [address] Urology 12/18/22 Lakshmi Wilhelm PA-C [address] [place] [address] 85104 Physician Knot Borer Urology 02/03/23 [place] [address] [place] [address] Assigned PCP 02/06/23 Alissa Perez PA-C [address] [place] [address] Physician Knot Borer Surgery 09/04/23 Lakshmi Wilhelm PA-C [address] [place] [address] Physician Knot Borer Urology 09/16/23 Tanisha Marlow 4120 [facility] [address] 03/30/24 documented as of this encounter
--- OUTSIDE RECORDS SUMMARY | 2024-04-29 02:23 | XMS_ITS | Encounter Summary ---
Author Organization [place] Address [address] [place] [address] Care Team Providers Care Phlebotomy Technician Name Role Phone Carlos Joyner MD Unavailable [phone] Jadon Murray MD Unavailable [phone] Maru Villagomez RN Unavailable Unavailable Ang Slade MD Unavailable [phone] Carlos Joyner MD Unavailable [phone] Ang Slade MD Unavailable [phone] Lakshmi Wilhelm-C Unavailable [phone] Heladio Willoughby MD Primary Care Provider [phone] Heladio Willoughby MD Unavailable Alissa Perez PA-C Unavailable [phone] Lakshmi Wilhelm-C Unavailable [phone] Encounter Details Date Type Department Care Team (Late st Contact Info) Description 04/12/2024 Medical Correspondence [facility] Health Information Management 3530 [facility] 180 [place] [address] Scan, Non-Provider Social History Tobacco Use Types [...] st Contact Info) Description 04/29/2024 5:00 PM MIS SPECIALIST Office Visit [facility] [address] [place] [phone] Carlene Knight APRN PUBLIC RELATIONS SPECIALIST [address] [place], [place] [phone] 06/15/2024 9:30 AM MIS SPECIALIST Office Visit [facility] [place] [address] [place] [address] Xu Prince MD [address] 206914 07/21/2024 4:00 PM MIS SPECIALIST [facility] [address] [place] [address] [place] [address] [place] [address] documented as of this encounter Visit Diagnoses Not on filedocumented in this encounter Care Teams Phlebotomy Technician Relationship Specialty Start [place] [address] [address] [place] [phone] PCP - General 03/05/23 Carlos Joyner MD [address] [place] [address] 714315 Urology 12/09/19 Jadon Murray MD [facility] [address] [address] Referring Physician Pediatric Surgery 12/09/19 Maru Villagomez, RN Registered Nurse 12/10/19 Ang Slade MD [address] [place] [address] Urology 04/24/20 Carlos Joyner MD [address] [place] [address]85 Assigned Surgical Provider 12/24/20 Ang Slade MD [address] [place] [address] Urology 12/18/22 Lakshmi Wilhelm PA-C [address] [place] [address] Physician Helper/Driver Urology 02/03/23 [place] [address] [place] [address] Assigned PCP 02/06/23 Alissa Perez PA-C [address] [place], [place] 03596455 Physician Helper/Driver Surgery 09/04/23 Lakshmi Wilhelm PA-C 909 [place], [place] 646185 Physician Helper/Driver Urology 09/16/23 Tanisha Marlow 4120 [facility] [address] 03/30/24 documented as of this encounter
--- OUTSIDE RECORDS SUMMARY | 2024-04-29 02:23 | XMS_ITS | Encounter Summary ---
Author Organization [place] Address [address] [place] [address] Care Team Providers Care Freight Car Cleaner Delta System Name Role Phone Carlos Joyner MD Unavailable [phone] Jadon Murray MD Unavailable [phone] Maru Villagomez RN Unavailable Unavailable Ang Slade MD Unavailable [phone] Carlos Joyner MD Unavailable [phone] Ang Slade MD Unavailable [phone] Lakshmi Wilhelm-C Unavailable [phone] Heladio Willoughby MD Primary Care Provider [phone] Heladio Willoughby MD Unavailable Alissa Perez PA-C Unavailable [phone] Lakshmi Wilhelm-C Unavailable [phone] Aidee Valero PA-C Unavailable [phone] Encounter Details Date Type Department Care Team (Late st Contact Info) Description 04/21/2024 [facility] [address] 4th [place] [address] Carlos Joyner MD [address] [place] [address] Recurrent UTI (Primary Dx) Social History Tobacco Use Types [...] in an abandoned building, in an overnight halfway, or couch-surfing.) Yes 04/16/2023 Are you worried [...] as of this encounter Progress Notes * Hattie Wing, RN - 04/21/2024 9:13 AM CST Call placed to patient's facility and spoke with Angle, staff there. Let her know that I have placed UA/UC orders. She will get a specimen in today. Thank you, Hattie Wing RN, BSN Urology Triage Nurse GRAPHY TECHNOLOGIST documented in this encounter Plan of Treatment Upcoming Encounters Date Type Department Care Team (Late st Contact Info) Description 04/29/2024 5:00 PM SONOGRAPHY TECHNOLOGIST Office Visit [address] [address] Carlene Knight APRN DIGGING MACHINE OPERATOR [address] [place] [address] 06/15/2024 9:30 AM SONOGRAPHY TECHNOLOGIST Office Visit [facility] [address] [place] [address] Xu Prince MD [address] [address] 07/21/2024 4:00 PM SONOGRAPHY TECHNOLOGIST Office Visit [facility] [address] [place] [address] [place] [address] [place] [address] documented as of this encounter Results * (ABNORMAL) UA with Microscopic (04/21/2024 10:30 AM SONOGRAPHY TECHNOLOGIST) Color Urine Yellow Colorless, Straw, Light Yellow, Yellow 04/21/2024 11:45 AM SONOGRAPHY TECHNOLOGIST LABORATORY Appearance Urine Clear Clear 04/21/20 11:45 AM SONOGRAPHY TECHNOLOGIST LV LABORATORY Glucose Urine Negative Negative mg/dL 04/21/2024 11:45 AM SONOGRAPHY TECHNOLOGIST [facility] Bilirubin Urine Negative Negative 11:45 AM SONOGRAPHY TECHNOLOGIST [facility] Ketones Urine Negative Negative mg/dL 04/21/2024 11:45 AM SONOGRAPHY TECHNOLOGIST [facility] Specific [place] Urine 1.020 1.003 - 1.035 04/21/2024 11:45 AM SONOGRAPHY TECHNOLOGIST [facility] Blood Urine Negative Negative 04/21/2024 11:45 AM SONOGRAPHY TECHNOLOGIST [facility] pH Urine 6.5 5.0 - 7.0 04/21/2024 11:45 AM SONOGRAPHY TECHNOLOGIST [facility] Protein Albumin Urine Negative Negative mg/dL 04/21/2024 11:45 AM SONOGRAPHY TECHNOLOGIST [facility] Urobilinogen Urine 0.2 0.2, 1.0 E.U./dL 04/21/2024 11:45 AM SONOGRAPHY TECHNOLOGIST [facility] Nitrite Urine Positive(A) Negative 04/21/2024 11:45 AM SONOGRAPHY TECHNOLOGIST LABORATORY Leukocyte Esterase Urine Large(A) Negative 04/21/2024 11:45 AM SONOGRAPHY TECHNOLOGIST [facility]OR[facility] Urine URINE SPECIMEN OBTAINED BY CLEAN CATCH PROCEDURE / Unknown Non-blood Collection / Unknown 04/21/2024 10:30 AM SONOGRAPHY TECHNOLOGIST 04/21/2024 11:40 AM SONOGRAPHY TECHNOLOGIST Carlos Joyner MD LAB - URINE ORDERABLES Fin al Result LABORATORY [facility] [address] [facility] Lab (no room number, 1st floor of clinic) [place] [address], [facility] * (ABNORMAL) Urine Culture (04/21/2024 10:30 AM SONOGRAPHY TECHNOLOGIST) [facility] Culture >100,000 CFU/mL Escherichia coli(A) LINDA 04/23/2024 8:04 PM SONOGRAPHY TECHNOLOGIST [facility] Culture >100,000 CFU/mL Enterobacter cloacae complex(A) 04/23/2024 8:04 PM SONOGRAPHY TECHNOLOGIST [facility] Urine MID-STREAM URINE SPECIMEN / Unknown Non-blood Collection / Unknown 04/21/2024 10:30 AM SONOGRAPHY TECHNOLOGIST 04/21/2024 11:40 AM SONOGRAPHY TECHNOLOGIST Narrative Organism Antibiotic Method Susceptibility Escherichia coli Ampicillin LINDA <=2 ug/mL: Susceptible Escherichia coli Ampicillin/ Sulbactam LINDA <=2 ug/mL: Susceptible Escherichia coli Piperacillin/Tazobactam LINDA <=4 ug/mL: Susceptible Escherichia coli Cefazolin LINDA <=4 ug/mL: Susceptible Comment:Cefazolin AZ C breakpoints are for the treatment of [...] <=1/19 ug/mL: Susceptible Enterobacter cloacae complex Ampicillin LINDA Resistant Comment:Intrinsicall y Resistant Enterobacter cloacae [...] for invasive infections, regardless of susceptibility results. us Carlos Joyner MD LAB - MICRO GENERAL ORDERA BLES Final Result [facility] Inf. Diseases Diag. Lab [address] [facility][1], Room [address] [place] [address], [facility] documented in this encounter Visit Diagnoses Diagnosis Recurrent UTI- Primary Urinary tract infection, site not specified documented in this encounter Care Teams Freight Car Cleaner Delta System Relationship Specialty Start [place] [address] [facility] [place] [address] PCP - General 03/05/23 Carlos Joyner MD [address] [place] [address] Urology 12/09/19 Jadon Murray MD [facility] [address] [address] Referring Physician Pediatric Surgery 12/09/19 Maru Villagomez, RN Registered Nurse 12/10/19 Ang Slade MD [address] [place] [address] Urology 04/24/20 Carlos Joyner MD [address] [place] [address] 70274 Assigned Surgical Provider 12/24/20 Ang Slade MD [address] [place] [address] Urology 12/18/22 Lakshmi Wilhelm PA-C [address] [place] [address] Physician Construction Teacher Urology 02/03/23 [place] [address] [facility] [place] [address] Assigned PCP 02/06/23 Alissa Perez PA-C [address] [place] [address] 306545 Physician Construction Teacher Surgery 09/04/23 Lakshmi Wilhelm PA-C 909 [place] [address] Physician Construction Teacher Urology 09/16/23 Aidee Valero PA-C [address] [place] [address] 74809455 Assigned Musculoskeletal Provider 04/17/24 Tanisha Marlow 4120 [facility] [address] 03/30/24 documented as of this encounter
--- OUTSIDE RECORDS SUMMARY | 2024-04-29 02:23 | XMS_ITS | Encounter Summary ---
Author Organization [facility] Address [address] [place] [address] Care Team Providers Care Stitchdowns Toe Former Name Role Phone Carlos Joyner MD Unavailable [phone] Jadon Murray MD Unavailable [phone] Maru Villagomez RN Unavailable Unavailable Ang Slade MD Unavailable [phone] Carlos Joyner MD Unavailable [phone] Ang Slade MD Unavailable [phone] Lakshmi WilhelmC Unavailable [phone] Heladio Willoughby MD Primary Care Provider [phone] Heladio Willoughby MD Unavailable Alissa Perez PA-C Unavailable [phone] Lakshmi WilhelmC Unavailable [phone] Aidee ValeroC Unavailable +[phone] Encounter Details Date Type Department Care Team (Late st Contact Info) Description 03/30/2024 Telephone [facility] [place] [facility] [address] 4th [place] [address] Aidee Valero PA-C [address] [place] [address] Social History Tobacco Use Types Packs/Day [...] in an abandoned building, in an overnight mcfp, or couch-surfing.) Yes 04/16/2023 Are you worried [...] encounter Miscellaneous Notes * Telephone Encounter - Natalie Abdullahi - 03/30/2024 3:23 PM CST [facility] Phone Message May a detailed message be left on voicemail: yes Reason for Call: Other: Anna is calling from Medical Records at [facility]. She is calling as she wants to know the time frame of records that are being requested? Action Taken: Other: te Travel Screening: Not Applicable Date of Service: USION TEACHER documented in this encounter Plan of Treatment Upcoming Encounters Date Type Department Care Team (Late st Contact Info) Description 04/29/2024 5:00 PM INCLUSION TEACHER [facility] [address] [place] [phone] EugeneCarlene BOW TACKER SEDIMENTATIONIST [address] [place] [address] 06/15/2024 9:30 AM INCLUSION TEACHER Office [facility] [address] [place] [phone] Xu Prince MD [facility] 106 [place] [address] 07/21/2024 4:00 PM INCLUSION TEACHER [facility] [address] [place] [address] [place] [address] [place], [place] [phone] documented as of this encounter Visit Diagnoses Not on filedocumented in this encounter Care Teams Stitchdowns Toe Former Relationship Specialty Start Date End Date Helad[place] [id number] [place] [address] [id number] PCP - General 03/05/23 Carlos Joyner MD [address] [place] [address] [id number] Urology 12/09/19 Jadon Murray MD [facility] [address] [facility] 550 [place], [place] [id number] Referring Physician Pediatric Surgery 12/09/19 Maru Villagomez, RN Registered Nurse 12/10/19 Ang Slade MD [address] [place] [address] 394 [place] [address] Urology 04/24/20 Carlos Joyner MD [address] [place] [address] Assigned Surgical Provider 12/24/20 Ang Slade MD [address] [place] [address] Urology 12/18/22 Lakshmi Wilhelm PA-C [address] [place] [address] Physician Grocery Manager Urology 02/03/23 [place] [address] [place] [address] Assigned PCP 02/06/23 Alissa Perez PA-C [address] [place] [address] 401665 Physician Grocery Manager Surgery 09/04/23 Lakshmi Wilhelm PA-C [address] [place] [address] 967055 Physician Grocery Manager Urology 09/16/23 Aidee Valero PA-C [address] [place] [address] 705725 Assigned Musculoskeletal Provider 04/17/24 Tanisha Marlow 4120 [facility] [address] 03/30/24 documented as of this encounter
--- OUTSIDE RECORDS SUMMARY | 2024-04-29 02:23 | XMS_ITS | Encounter Summary ---
Author Organization [place] Address [address] [place] [address] Care Team Providers Care User Interface Artist Name Role Phone Carlos Joyner MD Unavailable [phone] Jadon Mruray MD Unavailable + [phone] Maru Villagomez RN Unavailable Unavailable Ang Slade MD Unavailable [phone] Carlos Joyner MD Unavailable [phone] Ang Slade MD Unavailable [phone] Lakshmi Wilhelm-C Unavailable [phone] Heladio Willoughby MD Primary Care Provider [phone] Heladio Willoughby MD Unavailable Alissa Perez PA-C Unavailable [phone] Lakshmi Wilhelm-C Unavailable [phone] Aidee Valero PA-C Unavailable [phone] Encounter Details Date Type Department Care Team (Latest Contact Info) Description 04/28/2024 Travel Social History Tobacco Use Types Packs/Day [...] in an abandoned building, in an overnight retirement, or couch-surfing.) Yes 04/16/2023 Are you worried [...] st Contact Info) Description 04/29/2024 5:00 PM ORGAN PIPE MAKER METAL Office Visit [facility] [address] [place] [phone] Carlene Knight APRN MACHINE TOOL ELECTRICIAN [address] [place], [place] [phone] 06/15/2024 9:30 AM ORGAN PIPE MAKER METAL Office Visit [facility] [address] [place] [address] Xu Prince MD [address] [address] 07/21/2024 4:00 PM ORGAN PIPE MAKER METAL [facility] [address] [place] [phone] [place] [address] [place] [address] documented as of this encounter Visit Diagnoses Not on filedocumented in this encounter Care Teams User Interface Artist Relationship Specialty [place] [address] [place] [address] PCP - General 03/05/23 Carlos Joyner MD [address] [place] [address] 161735 Urology 12/09/19 Jadon Murray MD [facility] 2530 [facility] 550 [place], [place] [phone] Referring Physician Pediatric Surgery 12/09/19 Maru Villagomez, RN Registered Nurse 12/10/19 Ang Slade MD [address] [place] [address] 040845 Urology 04/24/20 Carlos Joyner MD [address] [place] [address] 087655 Assigned Surgical Provider 12/24/20 Ang Slade MD [address] [place] [address] Urology 12/18/22 Lakshmi Wilhelm PA-C [address] [place] [address] Physician Residential Remodeling Subcontractor Urology 02/03/23 [place] [address] [place] [address] Assigned PCP 02/06/23 Alissa Perez PA-C [address] [place] [address] Physician Residential Remodeling Subcontractor Surgery 09/04/23 Lakshmi Wilhelm PA-C [address] [place] [address] Physician Residential Remodeling Subcontractor Urology 09/16/23 Aidee Valero PA-C [address] [place] [address] Assigned Musculoskeletal Provider 04/17/24 Tanisha Marlow 4120 [facility] [address] 03/30/24 documented as of this encounter
--- OUTSIDE RECORDS SUMMARY | 2024-04-29 02:23 | XMS_ITS | Encounter Summary ---
Author Organization [place] Address [address] [place] [address] Care Team Providers Care Bander And Cellophaner Machine Name Role Phone Carlos Joyner MD Unavailable [phone] Jadon Murray MD Unavailable [phone] Maru Villagomez RN Unavailable Unavailable Ang Slade MD Unavailable [phone] Carlos Joyner MD Unavailable [phone] Ang Slade MD Unavailable [phone] Lakshmi WilhelmC Unavailable [phone] Heladio Willoughby MD Primary Care Provider [phone] Heladio Willoughby MD Unavailable Alissa Perez PA-C Unavailable [phone] Lakshmi WilhelmC Unavailable [phone] Aidee ValeroC Unavailable [phone] Encounter Details Date Type Department Care Team (Late st Contact Info) Description 04/01/2024 [facility] [address] [place] [address] Aidee Valero PA-C [address] [place] [address] Social History Tobacco Use Types Packs/Day [...] st Contact Info) Description 04/29/2024 5:00 PM SANITARY INSPECTOR Office Visit [facility] [address] [place] [phone] Carlene Knight APRN DIRECTOR OF DIRECT MARKETING [address] [place], [place] [phone] 06/15/2024 9:30 AM SANITARY INSPECTOR Office Visit [facility] [place] [address] [place] [address] Xu Prince MD [address] [facility] 106 [place] [address] 07/21/2024 4:00 PM SANITARY INSPECTOR Office Visit [facility] [address] [place] [address] [place] [address] [facility] [place], [place] [phone] documented as of this encounter Visit Diagnoses Not on filedocumented in this encounter Care Teams Bander And Cellophaner Machine Relationship Specialty [place] [address] [place] [address] PCP - General 03/05/23 Carlos Joyner MD [address] [place] [address] 444275 Urology 12/09/19 Jadon Murray MD [facility] 2530 [facility] 550 [place] [address] Referring Physician Pediatric Surgery 12/09/19 Maru Villagomez RN Registered Nurse 12/10/19 Ang Slade MD [address] [place] [address] Urology 04/24/20 Carlos Joyner MD [address] [place] [address] 839685 Assigned Surgical Provider 12/24/20 Ang Slade MD [address] [place] [address] 394 [place] [address] Urology 12/18/22 Lakshmi Wilhelm PA-C [address] [place] [address] 297635 Physician Specimen Accessioner Urology 02/03/23 [place] [address] [facility] [place] [address] Assigned PCP 02/06/23 Alissa Perez PA-C [address] [place] [address] Physician Specimen Accessioner Surgery 09/04/23 Lakshmi Wilhelm PA-C [address] [place] [address] Physician Specimen Accessioner Urology 09/16/23 Aidee Valero PA-C [address] [place] [address] 086945 Assigned Musculoskeletal Provider 04/17/24 Tanisha Marlow 4120 [facility] [address] 03/30/24 documented as of this encounter
--- OUTSIDE RECORDS SUMMARY | 2024-04-29 02:23 | XMS_ITS | Encounter Summary ---
Author Organization [place] Address [address] [place] [address] Care Team Providers Care Surgical Appliance Fitter Name Role Phone Carlos Joyner MD Unavailable [phone] Jadon Murray MD Unavailable [phone] Maru Villagomez RN Unavailable Unavailable Ang Slade MD Unavailable [phone] Carlos Joyner MD Unavailable [phone] Ang Slade MD Unavailable [phone] Lakshmi Wilhelm-C Unavailable Heladio Willoughby MD Primary Care Provider [phone] Heladio Willoughby MD Unavailable Alissa Perez PA-C Unavailable [phone] Lakshmi Wilhelm-C Unavailable [phone] Reason for Visit * Reason Comments Forms Orders Catheter, lubricatio n, gloves Encounter Details Date Type Department Care Team (Latest Contact Info) Description 04/13/2024 Documentation Only [facility] [place] [address] [facility] [address] [place] [address] Estrella Martinez NP 420 [facility], ROOM [address] [address] Forms; Orders (Catheter, lubrication, gloves) Social History Tobacco Use Types Packs/Day Years [...] in an abandoned building, in an overnight long term, or couch-surfing.) Yes 04/16/2023 Are you worried [...] as of this encounter Progress Notes * Ciera Villatoro - 04/13/2024 10:25 AM CST Type of Form Received: Orders (catheter, lubrication, gloves) Form Received (Date) 04/13/24 Form Filled out Yes Placed in provider folder Yes Received Completed forms Yes Faxed Forms Faxed To: [facility] Fax Number: [phone] Sent to HIM (Date) 04/13/24 N ELECTRONIC TECHNICIAN documented in this encounter Plan of Treatment Upcoming Encounters Date Type Department Care Team (Late st Contact Info) Description 04/29/2024 5:00 PM TRAIN ELECTRONIC TECHNICIAN [facility] [address] [place] [phone] Eugene NESTOR Concepcion CNP [address] [place] [address] 06/15/2024 9:30 AM TRAIN ELECTRONIC TECHNICIAN Office Visit [facility] [address] [place] [address] Xu Prince MD [address] [facility] 106 [place] [address] 07/21/2024 4:00 PM TRAIN ELECTRONIC TECHNICIAN [facility] [address] [place] [address] [place] [address] [place], [place] [phone] documented as of this encounter Visit Diagnoses Not on filedocumented in this encounter Care Teams Surgical Appliance Fitter Relationship Specialty Start [place] [address] [place], [place] [phone] PCP - General 03/05/23 Carlos Joyner MD 909 [place], [place] 930435 Urology 12/09/19 Jadon Murray MD [facility] 2530 [facility] 550 [place], [place] [phone] Referring Physician Pediatric Surgery 12/09/19 Maru Villagomez, RN Registered Nurse 12/10/19 Ang Slade MD [address] [place] [address] [address] Urology 04/24/20 Carlos Joyner MD [address] [place] [address] Assigned Surgical Provider 12/24/20 Ang Slade MD [address] [place] [address] Urology 12/18/22 Lakshmi Wilhelm PA-C [address] [place] [address] Physician Shingle Weaver Urology 02/03/23 [place] [address] [place] [address] Assigned PCP 02/06/23 Alissa Perez PA-C [address] [place] [address] 712595 Physician Shingle Weaver Surgery 09/04/23 Lakshmi Wilhelm PA-C [address] [place] [address] 338345 Physician Shingle Weaver Urology 09/16/23 Tanisha Marlow 4120 [facility] [address] 03/30/24 documented as of this encounter
--- OUTSIDE RECORDS SUMMARY | 2024-04-29 02:23 | XMS_ITS | Clinical Summary ---
Author Organization [facility] Address [address] [place] [address] Care Team Providers Care Lumber Straightened Name Role Phone Carlos Joyner MD Unavailable [phone] Jadon Murray MD Unavailable [phone] Maru Villagomez RN Unavailable Unavailable Ang Slade MD Unavailable Carlos Joyner MD Unavailable [phone] Ang Slade MD Unavailable [phone] Lakshmi Wilhelm-C Unavailable [phone] Heladio Willoughby MD Primary Care Provider [phone] Heladio Willoughby MD Unavailable Alissa Perez PA-C Unavailable [phone] Lakshmi Wilhelm-C Unavailable [phone] Aidee Valero PA-C Unavailable [phone] Allergies Active Allergy Reactions Criticality Noted Date [...] BANDAGE 4) MISC Apply 1 each topically 06/17/20 19 Active Multiple Vitamin (MULTI-VITAMINS) TABS Take 1 tablet by mouth every evening Active sodium chloride 0.9%, bottle, 0.9 % irrigation Irrigate with 60 mLs as directed 2 times daily Instill 60 ml into bladder along with Gentamicin solution Active MONOJECT HYPODERMIC NEEDLE 18G X 1 MISC USE TO FLUSH BLADDER 11/09/19 Active B-D SYRINGE LUER-OLGA 30 ML MISC USE TO FLUSH BLADDER 11/09/19 Active NEW MEDIndications:Rec urrent UTI 480 MG Gentamicin in 1 Liter 0.9 Normal Saline. Instill 60 mL of Gentamicin solution into bladder at HS 1800 mL 11 03/15/20 Active Saline Bacteriostatic (SODIUM CHLORIDE BACTERIOSTATIC) 0.9 [...] Refill(s), Maintenance, other 03/13/20 Active Wound Dressings (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 (03/14/2020): Vertebra Absence Congenital Kyphosis (acquired) (postural) 08/04/2008 Overview (03/14/2020): Kyphosis Neurogenic bladder 07/22/2003 Overview (03/05/2023): LW Onset: 39Vuk50 ; Paralysis Bladder Neurogenic bowel 07/22/2003 Overview (03/14/2020): LW Onset: 79Dht34 Paraplegia 07/22/2003 Overview (04/18/2023): 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 07/22/2003 Overview (03/14/2020): LW Onset: 38Fdw45 ; Short Stature 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/22/2003 Overview (04/16/2023): LW Modifier: shunted LW Onset: ; Spina Bifida Lumbar w Hydrocephalus Resolved Problems Problem Noted Date Diagnosed Date Resolved Date Acute kidney failure, unspecified 02/10/2020 03/05/2023 Encounters Date Type Department Care Team Description 04/28/2024 Travel 04/26/2024 Orders Only [facility] [address] [phone] Carlos Joyner MD Recurrent UTI (Primary Dx) 04/26/2024 MyC Medical Advice [facility] [address] [phone] Rosita Velasco RN 04/21/2024 11:45 AM PREDICTIVE MAINTENANCE TECHNICIAN Lab [facility] [address] [place] [address] Recurrent UTI 04/21/2024 Travel 04/21/2024 Orders Only [facility] [address] [phone] Carlos Joyner MD Recurrent UTI (Primary Dx) 04/21/2024 Telephone [facility] [address] [phone] Carlos Joyner MD Call Back (Pt still having UTI Symptoms. They are wanting to see about getting a new antibiotic. Please call Nurse safety and skill based pay manager at [phone]. Please call Yamini. As they would like to get something done prior to the holiday. Thanks ) 04/21/2024 Telephone [facility] [address] [place] [address] Heladio Willoughby MD 04/13/2024 Telephone [facility] [address] [place] [address] Heladio Willoughby MD Orders 04/13/2024 Documentation Only [facility] [address] [phone] Estrella Martinez NP Forms; Orders (Catheter, lubrication, gloves) 04/12/2024 Medical Correspondence [facility] Information Management [address] [place] [address] [address] [place] [address] Scan, Non-Provider 04/01/2024 MyC Medical Advice [facility] [address] [phone] Aidee Valero PA-C 03/30/2024 2:00 PM PREDICTIVE MAINTENANCE TECHNICIAN Office Visit [facility] [address] [phone] Aidee Valero PA-C History of spinal fusion (Primary Dx); Thoracic spina bifida, unspecified hydrocephalus presence (H) 03/30/2024 1:40 PM PREDICTIVE MAINTENANCE TECHNICIAN Ancillary Procedure [facility] Xray [address] [phone] Aidee Valero PA-C Thoracic spina bifida, unspecified hydrocephalus presence (H) 03/30/2024 Telephone [facility] [address] [phone] Aidee Valero PA-C 03/30/2024 Travel 03/30/2024 PRE VISIT [facility] [address] [phone] Aidee Valero PA-C Previsit 03/25/2024 Travel 03/23/2024 Orders Only [facility] [address] [phone] Aidee Valero PA-C Thoracic spina bifida, unspecified hydrocephalus presence (H) (Primary Dx) 03/09/2024 Telephone [facility] [address] [phone] Aidee Valero PA-C 03/09/2024 Telephone [facility] [address] [phone] Unknown, MD Ronak Appointment 03/05/2024 10:45 AM CDT Lab [facility] [address] [place] [address] Kidney stone 03/05/2024 Travel 03/02/2024 Orders Only [facility] [address] [phone] Carlos Joyner MD Kidney stone (Primary Dx) 03/02/2024 MyC Medical Advice [facility] [address] [phone] Carlos Joyner MD Recurrent UTI (Primary Dx) 02/14/2024 Refill [facility] [address] [phone] Carlos Joyner MD Medication Refill (Potassium Chloride Marcie ER Oral Tablet Extended Release 10 MEQ) 02/13/2024 MyC Medical Advice [facility] [address] [phone] Carlos Joyner MD 02/06/2024 MyC Medical Advice [address] [phone] Heladio Willoughby MD Forms ([facility] Education Plate Mounter... from Last 3 Months Immunizations Name Administration Dates Next Due DTAP (<7y) 01/18/2008,05/06/2005 DTaP, Unspecified 01/16/2015 DTaP/HepB/IPV 05/27/2003,03/21/2003,2002 Flu, Unspecified 02/26/2016,02/21/2009, 4 H7g1-96 Novel Flu 03/18/2009 Z7q0-24 Novel Flu P-free 03/30/2004,05/27/2003 HEPATITIS A (PEDS [...] Answer Date Recorded Do you have housing? (Natin g is defined as stable permanent housing [...] 61.2 kg (135 lb) 03/30/2024 2:01 PM PREDICTIVE MAINTENANCE TECHNICIAN Height 147.3 cm (4' 10) 03/30/2024 2:01 PM PREDICTIVE MAINTENANCE TECHNICIAN Body Mass Index 28.22 03/30/2024 2:01 PM PREDICTIVE MAINTENANCE TECHNICIAN Plan of Treatment Upcoming Encounters Date Type Department Care Team (Late st Contact Info) Description 04/29/2024 5:00 PM PREDICTIVE MAINTENANCE TECHNICIAN Office Visit [facility] [address] [place] [phone] Carlene Knight APRN CUSTOMER ASSISTANT [address] [place], [place] [phone] 06/15/2024 9:30 AM PREDICTIVE MAINTENANCE TECHNICIAN Office Visit [facility] Sleep [address] [phone] Xu Prince MD [address] [place] [address] [phone] 07/21/2024 4:00 PM PREDICTIVE MAINTENANCE TECHNICIAN Office Visit [facility] [address] [place] [phone] [place] [address] [place], [place] [phone] Health Maintenance Due Date Last Done Comments [...] HIV SCREENING 04/16/2043 Postponed from 2017 (Other) RSV VACCINE (1 - 1-dose 75+ series) 2077 HEPATITIS B IMMUNIZATION Completed 004, 03/21/2003, 2002 Pneumococcal Vaccine: Pediatrics (0 to 5 Years) and At-Risk Patients (6 to 64 Years) Aged Out 05/27/2003, 03/21/2003, 2002 No longer eligible based on patient's age to complete this topic MENINGITIS IMMUNIZATION Completed 06/17/2019, 01/16 HPV IMMUNIZATION Completed 04/16/2023, , 12/18/2017 PHQ-2 (once per calendar year) Completed 10/15/2023, 06/24/2023, 04/16/2023, Additional history exists COVID-19 Vaccine Completed 04/14/2024, , 05/02/2022, Additional history exists INFLUENZA VACCINE Completed 04/14/2024, , 05/02/2022, Additional history exists RSV MONOCLONAL ANTIBODY Aged Out No l onger eligible based on patient's age to complete this topic Medical Devices Implanted Type Area Hydrochloric Area Supervisor Device Identifier Shelf Expiration Date Model / Serial / Lot Stent Ureteral Percuflex Plus [id number] - [id number] Implanted:Qty: 1 on 11/12/2021 by Carlos Joyner MD at [facility] Stent Right: Abdomen [employer] [id number] 12/26/2022 [id number] Ureteral Catheter 5 [place] Implanted:Qty: 1 on 03/31/2023 by Elizabeth Jacobsen MD at [facility] Right: Ureter 02/02/2026 [id number] Description:5 tamazight Uretera l catheter used as a stent in right ureter 5 [place] Open Ended Catheter Implanted:Qty: 1 on 03/31/2023 by Elizabeth Jacobsen MD at [facility] Left: Ureter 02/19/2026 [id number] / [id number] Explanted Type Area Hydrochloric Area Supervisor Device Identifier Shelf Expiration Date Model / Serial / Lot Stent Ureteral Percuflex Plus [id number] - [id number] Implanted:Qty: 1 on 05/10/2021 by Carlos Joyner MD at [facility] Explanted:Qty: 1 on 08/09/2021 by Jane Gomez MD at [facility] Stent Right: Urethra [employer] 06/14/2022 [id number] Description:Ureter Stent Ureteral Percuflex Plus [id number] - [id number] Implanted:Qty: 1 on 05/10/2021 by Carlos Joyner MD at [facility] Explanted:Qty: 1 on 08/09/2021 by Jane Gomez MD at [facility] Stent Left: Urethra [employer] 07/25/2022 [id number] Stent Ureteral Percuflex Plus [id number] - [id number] Implanted:Qty: 1 on 08/09/2021 by Jane Gomez MD at [facility] Explanted:Qty: 1 on 11/12/2021 at [facility] Stent Right: Ureter [employer] 02/29/2024 [id number] Stent Ureteral Percuflex Plus [id number] - [id number] Implanted:Qty: 1 on 08/09/2021 by Jane Gomez MD at [facility] Explanted:Qty: 1 on 11/12/2021 at [facility] Stent Right: Ureter [employer] 02/29/2024 [id number] 5 Fr X 22cm Ureteral Stent Explanted:Qty: 1 on 02/07/2020 by Carlos Joyner MD at [facility] COOK 5 Fr X 22cm Ureteral Stent Explanted:Qty: 1 on 02/07/2020 by Carlos Joyner MD at [facility] COOK Procedures Procedure Name Priority Date/Time Associated Diagnosis Comments URINE CULTURE Routine 04/21/2024 10:30 AM PREDICTIVE MAINTENANCE TECHNICIAN Recurrent UTI URINE MICROSCOPIC EXAM Routine 04/21/2024 10:30 AM PREDICTIVE MAINTENANCE TECHNICIAN Recurrent UTI ROUTINE UA WITH MICROSCOPIC Routine 04/21/2024 10:30 AM PREDICTIVE MAINTENANCE TECHNICIAN Recurrent UTI XR SPINE COMPLETE SCOLIOSIS 2 VIEWS Routine 03/30/2024 1:38 PM PREDICTIVE MAINTENANCE TECHNICIAN Thoracic spina bifida, unspecified hydrocephalus presence (H) URINE CULTURE Routine 03/05/2024 7:30 AM CDT Kidney stone URINE MICROSCOPIC EXAM Routine 03/05/2024 7:30 AM CDT Kidney stone ROUTINE UA WITH MICROSCOPIC Routine 03/05/2024 7:30 AM CDT Kidney stone from Last 3 Months Results * (ABNORMAL) UA with Microscopic (04/21/2024 10:30 AM PREDICTIVE MAINTENANCE TECHNICIAN) Only the most recent of2 resultswithin the time period is included. Color Urine Yellow Colorless, Straw, Light Yellow, Yellow 04/21/2024 11:45 AM PREDICTIVE MAINTENANCE TECHNICIAN [facility] Appearance Urine Clear Clear 04/21/20 24 11:45 AM PREDICTIVE MAINTENANCE TECHNICIAN [facility] Glucose Urine Negative Negative mg/dL 04/21/2024 11:45 AM PREDICTIVE MAINTENANCE TECHNICIAN [facility] Bilirubin Urine Negative Negative 11:45 AM PREDICTIVE MAINTENANCE TECHNICIAN [facility] Ketones Urine Negative Negative mg/dL 04/21/2024 11:45 AM PREDICTIVE MAINTENANCE TECHNICIAN [facility] Specific [place] Urine 1.020 1.003 - 1.035 04/21/2024 11:45 AM PREDICTIVE MAINTENANCE TECHNICIAN [facility] Blood Urine Negative Negative 04/21/2024 11:45 AM PREDICTIVE MAINTENANCE TECHNICIAN [facility] pH Urine 6.5 5.0 - 7.0 04/21/2024 11:45 AM PREDICTIVE MAINTENANCE TECHNICIAN [facility] Protein Albumin Urine Negative Negative mg/dL 04/21/2024 11:45 AM PREDICTIVE MAINTENANCE TECHNICIAN LABORATORY Urobilinogen Urine 0.2 0.2, 1.0 E.U./dL 04/21/2024 11:45 AM PREDICTIVE MAINTENANCE TECHNICIAN LABORATORY Nitrite Urine Positive(A) Negative 04/21/2024 11:45 AM PREDICTIVE MAINTENANCE TECHNICIAN LABORATORY Leukocyte Esterase Urine Large(A) Negative 04/21/2024 11:45 AM PREDICTIVE MAINTENANCE TECHNICIAN LABORATORY Urine URINE SPECIMEN OBTAINED BY CLEAN CATCH PROCEDURE / Unknown Non-blood Collection / Unknown 04/21/2024 10:30 AM PREDICTIVE MAINTENANCE TECHNICIAN 04/21/2024 11:40 AM PREDICTIVE MAINTENANCE TECHNICIAN Carlos Joyner MD LAB - URINE ORDERABLES Fin al Result Performing Organization Address [facility]/ZIP Co de Phone Number LABORATORY [facility] [address] [facility] (no room number, 1st floor of [facility]) [address] * (ABNORMAL) Urine Microscopic Exam (04/21/2024 10:30 AM PREDICTIVE MAINTENANCE TECHNICIAN) Only the most recent of2 resultswithin the time period is included. Bacteria Urine Moderate( A) None Seen /HPF LINDA 04/21/2024 11:48 AM PREDICTIVE MAINTENANCE TECHNICIAN LABORATORY RBC Urine 2-5(A) 0-2 /HPF /HPF LINDA 04/21/2024 11:48 AM PREDICTIVE MAINTENANCE TECHNICIAN LABORATORY WBC Urine 25-50(A) 0-5 /HPF /HPF LINDA 04/21/2024 11:48 AM PREDICTIVE MAINTENANCE TECHNICIAN LABORATORY Squamous Epithelials Urine Few(A) None Seen /LPF LINDA 04/21/2024 11:48 AM PREDICTIVE MAINTENANCE TECHNICIAN LABORATORY Urine URINE SPECIMEN OBTAINED BY CLEAN CATCH PROCEDURE / Unknown Non-blood Collection / Unknown 04/21/2024 10:30 AM PREDICTIVE MAINTENANCE TECHNICIAN 04/21/2024 11:40 AM PREDICTIVE MAINTENANCE TECHNICIAN Carlos Joyner MD LAB - URINE ORDERABLES Fin al Result Performing Organization Address City/[facility]/ZIP Co de Phone Number LABORATORY [facility] [address] [facility] (no room number, [facility]st floor [facility]) [address] * (ABNORMAL) Urine Culture (04/21/2024 10:30 AM PREDICTIVE MAINTENANCE TECHNICIAN) Only the most recent of2 resultswithin the time period is included. Culture >100,000 CFU/mL Escherichia coli(A) LINDA 04/23/2024 8:04 PM PREDICTIVE MAINTENANCE TECHNICIAN [facility] Culture >100,000 CFU/mL Enterobacter cloacae complex(A) 04/23/2024 8:04 PM PREDICTIVE MAINTENANCE TECHNICIAN [facility] Urine MID-STREAM URINE SPECIMEN / Unknown Non-blood Collection / Unknown 04/21/2024 10:30 AM PREDICTIVE MAINTENANCE TECHNICIAN 04/21/2024 11:40 AM PREDICTIVE MAINTENANCE TECHNICIAN Narrative Organism Antibiotic Method Susceptibility Escherichia coli Ampicillin LINDA <=2 ug/mL: Susceptible Escherichia coli Ampicillin/ Sulbactam LINDA <=2 ug/mL: Susceptible Escherichia coli Piperacillin/Tazobactam LINDA <=4 ug/mL: Susceptible Escherichia coli Cefazolin LINDA <=4 ug/mL: Susceptible Comment:Cefazolin [place] C breakpoints are for the treatment of [...] ORDERA BLES Final Result [facility] Inf. Diseases Diag. Lab [address] [facility], [address] [place], [place] [phone] * XR Spine Complete Scoliosis 2 Views (03/30/2024 1:38 PM PREDICTIVE MAINTENANCE TECHNICIAN) Anatomical Region Laterality Modality Spine Computed Radiogr aphy Impressions 03/31/2024 1:57 PM PREDICTIVE MAINTENANCE TECHNICIAN Impression: 1. Postoperative changes of T10 through pelvis fusion without evidence of hardware complication. 2. No substantial coronal curvature of the spine. 3. Negative global coronal imbalance. 4. Positive global sagittal imbalance. MILLA CHOI DO Narrative 03/31/2024 1:57 PM PREDICTIVE MAINTENANCE TECHNICIAN Exam: Full spine radiographs using EOS History: [...] spine. Negative global coronal imbalance. Sagittal Vertical [place] (A vertical line drawn from the center [...] spine. Negative global coronal imbalance. Sagittal Vertical [place] (A vertical line drawn from the center [...] 3 Months [place] [facility] INDIVIDUAL [facility] [place]DIV[facility]UAL [place] [facility] INDIVIDUAL [facility] [place]UAL [place] IN[place] Advance Directives For more information, please contact: [phone] Documents on File Type Date Recorded Patient B2B Account Executive Expl anation Advance Directives and Living Will [...] continue PREVIOUSLY ORDERED code status Care Teams Lumber Straightened Relationship Specialty [place] [address] [place] [address] PCP - General 03/05/23 Carlos Joyner MD [address] [place] [address] 990245 Urology 12/09/19 Jadon Murray MD [facility] [address] [facility] [address] [place], [place] [phone] Referring Physician Pediatric Surgery 12/09/19 Maru Villagomez, RN Registered Nurse 12/10/19 Ang Slade MD [address] [place] [address] [id number] Urology 04/24/20 Carlos Joyner MD [address] [place] [address] 524885 Assigned Surgical Provider 12/24/20 Ang Slade MD [address] [place] [address] [address] [place] [address] Urology 12/18/22 Lakshmi Wilhelm PA-C [address] [place] [address] 056645 Physician Gun Sealing Machine Operator Urology 02/03/23 [place] [address] [facility] [place] [address] Assigned PCP 02/06/23 Alissa Perez PA-C [address] [place] [address] [id number] Physician Gun Sealing Machine Operator Surgery 09/04/23 Lakshmi Wilhelm PA-C [address] [place] [address] Physician Gun Sealing Machine Operator Urology 09/16/23 Aidee Valero PA-C [address] [place] [address] 393145 Assigned Musculoskeletal Provider 04/17/24 Tanisha Marlow [address] [facility] [address] 03/30/24
--- OUTSIDE RECORDS SUMMARY | 2024-04-29 02:23 | XMS_ITS | Encounter Summary ---
Author Organization [facility] Address [address] [place] [address] Care Team Providers Care Slab Lifting Supervisor Name Role Phone Carlos Joyner MD Unavailable [phone] Jadon Murray MD Unavailable [phone] Maru Villagomez RN Unavailable Unavailable Ang Slade MD Unavailable [phone] Carlos Joyner MD Unavailable [phone] Ang Slade MD Unavailable [phone] Lakshmi WilhelmC Unavailable [phone] Heladio Willoughby MD Primary Care Provider [phone] Heladio Willoughby MD Unavailable Alisas Perez-C Unavailable [phone] Lakshmi WilhelmC Unavailable [phone] Encounter Details Date Type Department Care Team (Latest Contact Info) Description 03/30/2024 Travel Social History Tobacco Use Types Packs/Day [...] in an abandoned building, in an overnight alf, or couch-surfing.) Yes 04/16/2023 Are you worried [...] st Contact Info) Description 04/29/2024 5:00 PM PRESS MACHINE FEEDER [facility] [address] [place] [address] Carlene Knight APRN TUB WASHER [address] [place], [place] [phone] 06/15/2024 9:30 AM PRESS MACHINE FEEDER Office Visit [facility] [address] [address] Xu Prince MD [address] [place] [address] 07/21/2024 4:00 PM PRESS MACHINE FEEDER Office Visit [facility] [address] [place] [phone] [place] [address] [place], [place] [phone] documented as of this encounter Visit Diagnoses Not on filedocumented in this encounter Care Teams Slab Lifting Supervisor Relationship Specialty Start [place] [address] [place] [address] PCP - General 03/05/23 Carlos Joyner MD [address] [place] [address] Urology 12/09/19 Jadon Murray MD [facility] [address] [phone] Referring Physician Pediatric Surgery 12/09/19 Maru Villagomez, OTILIO Registered Nurse 12/10/19 Ang Slade MD [address] [place] [address] [id number] Urology 04/24/20 Carlos Joyner MD [address] [place] [address] [phone] Assigned Surgical Provider 12/24/20 Ang Slade MD [address] [place] [address] Urology 12/18/22 Lakshmi Wilhelm PA-C [address] [place] [address] [phone] Physician Sole Filler Urology 02/03/23 [place] [address] [place] [address] Assigned PCP 02/06/23 Alissa Perez PA-C [address] [place] [address] Physician Sole Filler Surgery 09/04/23 Lakshmi Wilhelm PA-C [address] [place] [address] Physician Sole Filler Urology 09/16/23 Tanisha Marlow [address] [facility] [address] 03/30/24 documented as of this encounter
--- OUTSIDE RECORDS SUMMARY | 2024-04-29 02:23 | XMS_ITS | Encounter Summary ---
Author Organization [facility] Address [address] [place] [address] Care Team Providers Care Income Tax Expert Name Role Phone Carlos Joyenr MD Unavailable [phone] Jadon Murray MD Unavailable [phone] Maru Villagomez RN Unavailable Unavailable Ang Slade MD Unavailable [phone] Carlos Joyner MD Unavailable [phone] Ang Slade MD Unavailable [phone] Lakshmi Wilhelm-C Unavailable [phone] Heladio Willoughby MD Primary Care Provider [phone] Heladio Willoughby MD Unavailable Alissa Perez PA-C Unavailable [phone] Lakshmi Wilhelm-C Unavailable [phone] Aidee Valero PA-C Unavailable [phone] Encounter Details Date Type Department Care Team (Late st Contact Info) Description 04/21/2024 11:45 AM KILNMAN Lab [facility] [address] [place] [address] Recurrent UTI Social History Tobacco Use Types [...] an overnight senior care, or couch-surfing.) Yes 04/16/2023 Are you worried [...] st Contact Info) Description 04/29/2024 5:00 PM KILNMAN Office Visit [facility] [address] [place] [phone] Carlene Knight APRN [facility] [address] [place] [address] 06/15/2024 9:30 AM KILNMAN Office Visit [address] [address] Xu Prince MD [address] [place] [address] 07/21/2024 4:00 PM KILNMAN [facility] [address] [facility] [place] [phone] [place] [address] [place] [address] documented as of this encounter Procedures Procedure Name Priority Date/Time Associated Diagnosis Comments ROUTINE UA WITH MICROSCOPIC Routine 04/21/2024 10:30 AM KILNMAN Recurrent UTI URINE MICROSCOPIC EXAM Routine 04/21/2024 10:30 AM KILNMAN Recurrent UTI URINE CULTURE Routine 04/21/2024 10:30 AM KILNMAN Recurrent UTI documented in this encounter Results * (ABNORMAL) Urine Microscopic Exam (04/21/2024 10:30 AM KILNMAN) Bacteria Urine Moderate( A) None Seen /HPF LINDA 04/21/2024 11:48 AM [facility] RBC Urine 2-5(A) 0-2 /HPF /HPF LINDA 04/21/2024 11:48 AM [facility] WBC Urine 25-50(A) 0-5 /HPF /HPF LINDA 04/21/2024 11:48 AM [facility] Squamous Epithelials Urine Few(A) None Seen /LPF LINDA 04/21/2024 11:48 AM [facility] Urine URINE SPECIMEN OBTAINED BY CLEAN CATCH PROCEDURE / Unknown Non-blood Collection / Unknown 04/21/2024 10:30 AM KILNMAN 04/21/2024 11:40 AM KILNMAN us Carlos Joyner MD LAB - URINE ORDERABLES Fin al Result LABORATORY [facility] [address] [facility] Lab (no room number, 1st floor of clinic) [place] [address], [facility] * (ABNORMAL) UA with Microscopic (04/21/2024 10:30 AM KILNMAN) Color Urine Yellow Colorless, Straw, Light Yellow, Yellow 04/21/2024 11:45 AM [facility] LABORATORY Appearance Urine Clear Clear 04/21/20 11:45 AM [facility] LABORATORY Glucose Urine Negative Negative mg/dL 04/21/2024 11:45 AM [facility] LABORATORY Bilirubin Urine Negative Negative 11:45 AM [facility] LABOR[facility]ORY Ketones Urine Negative Negative mg/dL 04/21/2024 11:45 AM [facility] LABORATORY Specific Cameron Urine 1.020 1.003 - 1.035 04/21/2024 11:45 AM [facility] LAB[facility] Blood Urine Negative Negative 04/21/2024 11:45 AM [facility] pH Urine 6.5 5.0 - 7.0 04/21/2024 11:45 AM [facility] LABORAT[facility] Protein Albumin Urine Negative Negative mg/dL 04/21/2024 11:45 AM [facility] LABORATORY Urobilinogen Urine 0.2 0.2, 1.0 E.U./dL 04/21/2024 11:45 AM [facility] LABORATORY Nitrite Urine Positive(A) Negative 04/21/2024 11:45 AM [facility] LABORATORY Leukocyte Esterase Urine Large(A) Negative 04/21/2024 11:45 AM [facility] LABORATORY Urine URINE SPECIMEN OBTAINED BY CLEAN CATCH PROCEDURE / Unknown Non-blood Collection / Unknown 04/21/2024 10:30 AM KILNMAN 04/21/2024 11:40 AM KILNMAN Carlos Joyner MD LAB - URINE ORDERABLES Fin al Result LABORATORY [facility] [address] [facility] Lab (no room number, 1st floor of clinic) [place] [address] * (ABNORMAL) Urine Culture (04/21/2024 10:30 AM KILNMAN) Culture >100,000 CFU/mL Escherichia coli(A) LINDA 04/23/2024 8:04 PM K[facility]NMAN [facility] Culture >100,000 CFU/mL Enterobacter cloacae complex(A) 04/23/2024 8:04 PM K[facility]NMAN [facility] Urine MID-STREAM URINE SPECIMEN / Unknown Non-blood Collection / Unknown 04/21/2024 10:30 AM KILNMAN 04/21/2024 11:40 AM KILNMAN Narrative Organism Antibiotic Method Susceptibility Escherichia coli Ampicillin LINDA <=2 ug/mL: Susceptible Escherichia coli Ampicillin/ Sulbactam LINDA <=2 ug/mL: Susceptible Escherichia coli Piperacillin/Tazobactam LINDA <=4 ug/mL: Susceptible Escherichia coli Cefazolin LINDA <=4 ug/mL: Susceptible Comment:Cefazolin DC C breakpoints are for the treatment of [...] ORDERA BLES Final Result [facility]ORAT[facility] Inf. Diseases Diag. Lab [address] [facility], Room [address] [place] [address], [facility] documented in this encounter Visit Diagnoses Diagnosis Recurrent UTI Urinary tract infection, site not specified documented in this encounter Care Teams Income Tax Expert Relationship Specialty [place] [address] [place] [address] PCP - General 03/05/23 Carlos Joyner MD [address] [place] [address] 766645 Urology 12/09/19 Jadon Murray MD [facility] 2530 [facility] [address] [place], [place] [phone] Referring Physician Pediatric Surgery 12/09/19 Maru Villagomez, RN Registered Nurse 12/10/19 Ang Slade MD [address] [place] [address] [address] [place], [place] 390385 Urology 04/24/20 Carlos Joyner MD [address] [place] [address] 409165 Assigned Surgical Provider 12/24/20 Ang Slade MD [address] [place] [address] [phone] Urology 12/18/22 Lakshmi Wilhelm PA-C [address] [place] [address] 174685 Physician Electronic Prepress Technician Urology 02/03/23 [place] [address] [place] [address] Assigned PCP 02/06/23 Alissa Perez PA-C [address] [place] [address] Physician Electronic Prepress Technician Surgery 09/04/23 Lakshmi Wilhelm PA-C [address] [place] [address] Physician Electronic Prepress Technician Urology 09/16/23 Aidee Valero PA-C [address] [place] [address] Assigned Musculoskeletal Provider 04/17/24 Tanisha Marlow 4120 [facility] [address] 03/30/24 documented as of this encounter
--- OUTSIDE RECORDS SUMMARY | 2024-04-29 02:23 | XMS_ITS | Encounter Summary ---
Author Organization [facility] Address [address] [place] [address]. [place] [address] Care Team Providers Care Generator Technician Name Role Phone Carlos Joyner MD Unavailable [phone] Jadon Murray MD Unavailable [phone] Maru Villagomez RN Unavailable Unavailable Ang Slade MD Unavailable [phone] Carlos Joyner MD Unavailable [phone] Ang Slade MD Unavailable [phone] Lakshmi Wilhelm PA-C Unavailable [phone] Heladio Willoughby MD Primary Care Provider [phone] Heladio Willoughby MD Unavailable Alissa Perez PA-C Unavailable [phone] Lakshmi Wilhelm PA-C Unavailable [phone] Aidee Valero PA-C Unavailable [phone] Encounter Details Date Type Department Care Team (Late st Contact Info) Description 04/26/2024 [facility] [address] 4th [place] [address] Rosita Velasco, RN Social History [...] st Contact Info) Description 04/29/2024 5:00 PM WATER REUSE PROGRAM MANAGER Office Visit [facility] [address] [place] [phone] Carlene Knight APRN [facility] [address] [place], [place] [phone] 06/15/2024 9:30 AM WATER REUSE PROGRAM MANAGER Office Visit [place] [address] [place] [address] Xu Prince MD [address] [address] 07/21/2024 4:00 PM WATER REUSE PROGRAM MANAGER Office Visit [facility] [address] [address] [phone] [place] [address] [address] [phone] documented as of this encounter Visit Diagnoses Not on filedocumented in this encounter Care Teams Generator Technician Relationship Specialty [place] [address] [address] [phone] PCP - General 03/05/23 Carlos Joyner MD [address] [place] [address] Urology 12/09/19 Jadon Murray MD [facility] 2530 [facility] 550 [place] [address] Referring Physician Pediatric Surgery 12/09/19 Maru Villagomez, OTILIO Registered Nurse 12/10/19 Ang Slade MD [address] [place] [address] Urology 04/24/20 Carlos Joyner MD [address] [place] [address] Assigned Surgical Provider 12/24/20 Ang Slade MD [address] [address] Urology 12/18/22 Lakshmi Wilhelm PA-C [address] [place] [address] Physician Probate Judge Urology 02/03/23 [place] [address] [facility] [place] [address] Assigned PCP 02/06/23 Alissa Perez PA-C [address] [place] [address] Physician Probate Judge Surgery 09/04/23 Lakshmi Wilhelm PA-C [address] [place] [address] Physician Probate Judge Urology 09/16/23 Aidee Valero PA-C [address] [place] [address] Assigned Musculoskeletal Provider 04/17/24 Tanisha Marlow 4120 [facility] [address] 03/30/24 documented as of this encounter
--- OUTSIDE RECORDS SUMMARY | 2024-04-29 02:23 | XMS_ITS | Encounter Summary ---
Author Organization [facility] Address [address] [place] [address] Care Team Providers Care Pump Servicer Supervisor Name Role Phone Carlos Joyner MD Unavailable [phone] Jadon Murray MD Unavailable [phone] Maru Villagomez RN Unavailable Unavailable Ang Slade MD Unavailable [phone] Carlos Joyner MD Unavailable [phone] Ang Slade MD Unavailable [phone] Lakshmi Wilhelm-C Unavailable Heladio Willoughby MD Primary Care Provider [phone] Heladio Willoughby MD Unavailable Alissa Perez PA-C Unavailable [phone] Lakshmi Wilhelm-C Unavailable Aidee Valero PA-C Unavailable Encounter Details Date Type Department Care Team (Late st Contact Info) Description 04/26/2024 [facility] [address] 4th [place] [address] Carlos Joyner MD [address] [place] [address] Recurrent UTI (Primary Dx) Social History [...] Progress Notes * Hattie Wing, RN - 04/26/2024 11:15 AM CST Call placed to Tanisha Marlow, patient's guardian to inform her of Laina's UTI and antibiotic being sent to the [facility] in [place]. She voices understanding. Thank you, Hattie Wing RN, BSN Urology Triage Nurse LER RUBBER STRAND documented in this encounter Plan of Treatment Upcoming Encounters Date Type Department Care Team (Late st Contact Info) Description 04/29/2024 5:00 PM SPOOLER RUBBER STRAND Office Visit [place] [phone] Carlene Knight APRN SUPERVISOR [employer] [address] [place] [address] 06/15/2024 9:30 AM SPOOLER RUBBER STRAND Office Visit [facility] [address] [place] [phone] Xu Prince MD 606 24[facility] 106 [place] [address] 07/21/2024 4:00 PM SPOOLER RUBBER STRAND Office Visit [facility] [address] [place] [address] [place] [address] [place] [address] documented as of this encounter Visit Diagnoses Diagnosis Recurrent UTI- Primary Urinary tract infection, site not specified documented in this encounter Care Teams Pump Servicer Supervisor Relationship Specialty Start [place] [address] [place] [address] PCP - General 03/05/23 Carlos Joyner MD 909 [place] [address] Urology 12/09/19 Jadon Murray MD [facility] 2530 [facility] 550 [place], [place] [phone] Referring Physician Pediatric Surgery 12/09/19 Maru Villagomez, RN Registered Nurse 12/10/19 Ang Slade MD [address] [place] [address] 394 [place] [address] Urology 04/24/20 Carlos Joyner MD [address] [place] [address] 790825 Assigned Surgical Provider 12/24/20 Ang Slade MD [address] [place] [address] 491205 Urology 12/18/22 Lakshmi Wilhelm PA-C [address] [place] [address] 415975 Physician Airframe Design Engineer Urology 02/03/23 [place] [address] [place], [place] 6292068 Assigned PCP 02/06/23 Alissa Perez PA-C [address] [place] [address] 249125 Physician Airframe Design Engineer Surgery 09/04/23 Lakshmi Wilhelm PA-C [address] [place] [address] 835805 Physician Airframe Design Engineer Urology 09/16/23 Aidee Valero PA-C [address] [place] [address] 492235 Assigned Musculoskeletal Provider 04/17/24 Tanisha Marlow 4120 [facility] [address] 03/30/24 documented as of this encounter
--- OUTSIDE RECORDS SUMMARY | 2024-04-29 02:23 | XMS_ITS | Encounter Summary ---
Author Organization [facility] Address [address] [place] [address]. [place] [address] Care Team Providers Care Stretcher Leveler Operator Helper Name Role Phone Carlos Joyner MD Unavailable [phone] Jadon Murray MD Unavailable [phone] Maru Villagomez RN Unavailable Unavailable Ang Slade MD Unavailable [phone] Carlos Joyner MD Unavailable [phone] Ang Slade MD Unavailable [phone] Lakshmi Wilhelm PA-C Unavailable [phone] Heladio Willoughby MD Primary Care Provider [phone] Heladio Willoughby MD Unavailable Alissa Perez PA-C Unavailable [phone] Lakshmi Wilhelm PA-C Unavailable [phone] Aidee Valero PA-C Unavailable [phone] Encounter Details Date Type Department Care Team (Late st Contact Info) Description 04/21/2024 Telephone [facility] [address] [place] [address] [place] [address] [place] [address] Social History Tobacco Use Types [...] encounter Miscellaneous Notes * Telephone Encounter - Tamara Islas RN - 04/21/2024 8:30 AM SECRETARY OFFICE CLERK Received a call from Tangela from [facility] [phone]. Home Care is calling regarding an established patient with [facility]. She said the pt was recently treated for a uti with nitrofurantoin. She believes it didn't get rid of the uti. The urine is cloudy and has a foul order. Advised it looks like the pt is followed by Urology and Dr. Carlos Joyner ordered the nitrofurantoin and ordered the last urine test. Advised reaching out to Urology. Phone number given. Tamara F. Bastyr, RN ETARY OFFICE CLERK documented in this encounter Plan of Treatment Upcoming Encounters Date Type Department Care Team (Late st Contact Info) Description 04/29/2024 5:00 PM SECRETARY OFFICE CLERK [facility] [address] [place] [phone] Carlene Knight APRN CNP [address] [place], [place] [phone] 06/15/2024 9:30 AM SECRETARY OFFICE CLERK Office [facility] [address] [facility] [place] [phone] Xu Prince MD [address] [place] [address] [phone] 07/21/2024 4:00 PM SECRETARY OFFICE CLERK [facility] [address] [place] [phone] [place] [address] [place], [place] [phone] documented as of this encounter Visit Diagnoses Not on filedocumented in this encounter Care Teams Stretcher Leveler Operator Helper Relationship Specialty Start Date End Date Heladio Willoughby [place] [address] [place] [address] [phone] PCP - General 03/05/23 Carlos Joyner MD 909 [place], [place] 435005 Urology 12/09/19 Jadon Murray MD [facility] [address] [facility] 550 [place], [place] [phone] Referring Physician Pediatric Surgery 12/09/19 Maru Villagomez, RN Registered Nurse 12/10/19 Ang Slade MD [address] [place] [address] Urology 04/24/20 Carlos Joyner MD [address] [place] [address] 819745 Assigned Surgical Provider 12/24/20 Ang Slade MD [address] [place] [address] 154045 Urology 12/18/22 Lakshmi Wilhelm PA-C [address] [place] [address] 756655 Physician [place] Attorney Urology 02/03/23 [place] [address] [place] [address] Assigned PCP 02/06/23 Alissa Perez PA-C [address] [place] [address] 779255 Physician [place] Attorney Surgery 09/04/23 Lakshmi Wilhelm PA-C [address] [place] [address] 718525 Physician [place] Attorney Urology 09/16/23 Aidee Valero PA-C [address] [place] [address] 711105 Assigned Musculoskeletal Provider 04/17/24 Tanisha Marlow [address] [place] [address] 03/30/24 documented as of this encounter
--- OUTSIDE RECORDS SUMMARY | 2024-04-29 02:23 | XMS_ITS | Encounter Summary ---
Author Organization [facility] Address [address] [place] [address] Care Team Providers Care Shipping And Receiving Associate Name Role Phone Carlos Joyner MD Unavailable [phone] Jadon Murray MD Unavailable [phone] Maru Villagomez RN Unavailable Unavailable Ang Slade MD Unavailable [phone] Carlos Joyner MD Unavailable [phone] Ang Slade MD Unavailable [phone] Lakshmi WilhelmC Unavailable [phone] Heladio Willoughby MD Primary Care Provider [phone] Heladio Willoughby MD Unavailable Alissa Perez-C Unavailable [phone] Lakshmi Wilhelm PA-C Unavailable [phone] Reason for Visit * Reason Onset Date Comments Previsit 03/30/2024 Encounter Details Date Type Department Care Team (Late st Contact Info) Description 03/30/[address] [facility] [address] [place] [address] Aidee Valero PA-C [address] [place] [address] Previsit Social History Tobacco Use Types [...] in an abandoned building, in an overnight group home, or couch-surfing.) Yes 04/16/2023 Are you [...] encounter Miscellaneous Notes * Telephone Encounter - Naomi Wolf - 03/29/2024 3:39 PM CST Action March 30, 2024 10:55 AM MT Action Taken Called [facility] for imaging to be pushed STAT, rep states the last imaging with them were done in [address] back to 2004. They will push over the imaging, but the za is needed for records. DIAGNOSIS: SPINE BIFIDA APPOINTMENT DATE: 03/30/2024 NOTES STATUS DETAILS OFFICE NOTE from referring provider SELF OFFICE NOTE from other specialist Internal 12/08/2023 - Alissa Perez PA-C - [facility] Colon Surgery 11/16/2018 - Thong Ellis MD - [facility] Specialty OPERATIVE REPORT In process: ZA NEEDED! [id number]: Spine surgery with [facility] @ 10 years old. MRI PACS [facility]: 01/17/2010 - Entire Spine 01/10/2009 - C Spine 01/10/2009 - T Spine 01/10/2009 - L Spine CT SCAN PACS Internal Radiology: 02/17/2021 - Abd/Pel XRAYS (IMAGES & REPORTS) PACS Internal [facility] [place]: 2020 - Abdomen/Spine Imaging [place]: - Spine Imaging Y LEVEL ACCOUNT MANAGER Y LEVEL ACCOUNT MANAGER Y LEVEL ACCOUNT MANAGER Y LEVEL ACCOUNT MANAGER documented in this encounter Plan of Treatment Upcoming Encounters Date Type Department Care Team (Late st Contact Info) Description 04/29/2024 5:00 PM ENTRY LEVEL ACCOUNT MANAGER [facility] [address] [place] [address] Carlene Knight APRN ADVERTISING ACCOUNT MANAGER [address] [place] [address] 06/15/2024 9:30 AM ENTRY LEVEL ACCOUNT MANAGER Office Visit [address] [address] Xu Prince MD [address] [place] [address] [phone] 07/21/2024 4:00 PM ENTRY LEVEL ACCOUNT MANAGER Office Visit [facility] [place] [address] [place] [address] [place] [address] [place], [place] [phone] documented as of this encounter Visit Diagnoses Not on filedocumented in this encounter Care Teams Shipping And Receiving Associate Relationship Specialty [place] [address] [place] [address] PCP - General 03/05/23 Carlos Joyner MD [address] [place] [address] Urology 12/09/19 Jadon Murray MD [facility] 2530 [facility] 550 [place], [place] [phone] Referring Physician Pediatric Surgery 12/09/19 Maru Villagomez, RN Registered Nurse 12/10/19 Ang Slade MD [address] [place] [address] Urology 04/24/20 Carlos Joyner MD [address] [place] [address] 780725 Assigned Surgical Provider 12/24/20 Ang Sldae MD [address] [place] [address] Urology 12/18/22 Lakshmi Wilhelm PA-C [address] [place] [address] 041915 Physician Label Paster Urology 02/03/23 [place] [address] [place] [address] Assigned PCP 02/06/23 Alissa Perez PA-C [address] [place] [address] Physician Label Paster Surgery 09/04/23 Lakshmi Wilhelm PA-C 909 [place] [address] Physician Label Paster Urology 09/16/23 Tanisha Marlow 4120 [facility] [address] 03/30/24 documented as of this encounter
--- OUTSIDE RECORDS SUMMARY | 2024-04-29 02:24 | XMS_ITS | Encounter Summary ---
Author Organization [facility] Address [address] [place] [address] Care Team Providers Care Reading Recovery Teacher Name Role Phone Carlos Joyner MD Unavailable [phone] Jadon Murray MD Unavailable [phone] Maru Villagomez RN Unavailable Unavailable Ang Slade MD Unavailable [phone] Carlos Joyner MD Unavailable [phone] Ang Slade MD Unavailable [phone] Lakshmi Wilhelm PA-C Unavailable Heladio Willoughby MD Primary Care Provider [phone] Heladio Willoughby MD Unavailable Alissa Perez PA-C Unavailable [phone] Lakshmi Wilhelm PA-C Unavailable [phone] Reason for Visit * Diagnostic Imaging XR (Routine) - Pending Review Specialty Diagnoses / Procedures Referred By Charli t Referred To Contact Radiology. Diagnoses Thoracic spina bifida, unspecified hydrocephalus presence (H) Procedures XR Spine Complete Scoliosis 2 Views XR Spine Complete Scoliosis 2 Views Aidee Valero PA-C [address] [place] [address] Phone: tel: fax: Referral ID Status Reason Start Date Expiration Date V isits Requested Visits Authorized [id number] Pending Review 03/23/2024 03/23/2025 1 1 Encounter Details Date Type Department Care Team (Latest Contact Info) Description 03/30/2024 1:40 PM COOPERAGE SHOP SUPERVISOR Ancillary Procedure [facility] [address] [place] [address] 4th [place] [address] Aidee Valero PA-C [address] [place] [address] Thoracic spina bifida, unspecified hydrocephalus presence (H) [...] st Contact Info) Description 04/29/2024 5:00 PM COOPERAGE SHOP SUPERVISOR [facility] [address] [place] [phone] Eugene Carlene, APRN DATA PROCESSING CONTROL CLERK [address] [place] [address] 06/15/2024 9:30 AM COOPERAGE SHOP SUPERVISOR Office Visit [facility] [address] [place] [address] Xu Prince MD [address] [address] 07/21/2024 4:00 PM COOPERAGE SHOP SUPERVISOR [facility] [address] [place] [address] [place] [address] [place] [address] documented as of this encounter Procedures Procedure Name Priority Date/Time Associated Diagnosis Comments XR SPINE COMPLETE SCOLIOSIS 2 VIEWS Routine 03/30/2024 1:38 PM COOPERAGE SHOP SUPERVISOR Thoracic spina bifida, unspecified hydrocephalus presence (H) documented in this encounter Results * XR Spine Complete Scoliosis 2 Views (03/30/2024 1:38 PM COOPERAGE SHOP SUPERVISOR) Anatomical Region Laterality Modality Spine Computed Radiogr aphy Impressions 03/31/2024 1:57 PM COOPERAGE SHOP SUPERVISOR Impression: 1. Postoperative changes of T10 through pelvis fusion without evidence of hardware complication. 2. No substantial coronal curvature of the spine. 3. Negative global coronal imbalance. 4. Positive global sagittal imbalance. MILLA CHOI DO Narrative 03/31/2024 1:57 PM COOPERAGE SHOP SUPERVISOR Exam: Full spine radiographs using EOS History: [...] spine. Negative global coronal imbalance. Sagittal Vertical [place] (A vertical line drawn from the center [...] spine. Negative global coronal imbalance. Sagittal Vertical [place] (A vertical line drawn from the center [...] Positive global sagittal imbalance. MILLA CHOI DO us Aidee Valero PA-C IMG DIAGNOSTIC IMAGING ORDER ERROL Final Result documented in this encounter Visit Diagnoses Diagnosis Thoracic spina bifida, unspecified hydrocephalus presence (H) documented in this encounter Care Teams Reading Recovery Teacher Relationship Specialty Start [place] [address] [place] [address] PCP - General 03/05/23 Carlos Joyner MD [address] [place] [address] 225115 Urology 12/09/19 Jadon Murray MD [facility] [address] [id number] Referring Physician Pediatric Surgery 12/09/19 Maru Villagomez, RN Registered Nurse 12/10/19 Ang Slade MD [address] [place] [address] 909505 Urology 04/24/20 Carlos Joyner MD [address] [place] [address] 047955 Assigned Surgical Provider 12/24/20 Ang Slade MD [address] [place] [address] 227475 Urology 12/18/22 Lakshmi Wilhelm PA-C [address] [place] [address] 817055 Physician Tobacco Hanger Urology 02/03/23 [place] [address] [facility] [place] [address] Assigned PCP 02/06/23 Alissa Perez PA-C [address] [place] [address] 476115 Physician Tobacco Hanger Surgery 09/04/23 Lakshmi Wilhelm PA-C [address] [place] [address] Physician Tobacco Hanger Urology 09/16/23 Tanisha Marlow 4120 [facility] [address] 03/30/24 documented as of this encounter
--- OUTSIDE RECORDS SUMMARY | 2024-04-29 02:24 | XMS_ITS | Encounter Summary ---
Author Organization [facility] Address [address] [place] [address] Care Team Providers Care Probation Manager Name Role Phone Carlos Joyner MD Unavailable [phone] Jadon Murray MD Unavailable [phone] Maru Villagomez RN Unavailable Unavailable Ang Slade MD Unavailable [phone] Carlos Joyner MD Unavailable [phone] Ang Slade MD Unavailable [phone] Lakshmi Wilhelm PA-C Unavailable [phone] Heladio Willoughby MD Primary Care Provider [phone] Heladio Willoughby MD Unavailable Alissa Perez PA-C Unavailable [phone] Lakshmi Wilhelm PA-C Unavailable [phone] Aidee Valero PA-C Unavailable [phone] Encounter Details Date Type Department Care Team (Late st Contact Info) Description 06/25/2023 [facility] [address] [place] [address] Carlos Joyner MD [address] [place] [address] Social History Tobacco Use Types Packs/Day [...] in an abandoned building, in an overnight longterm, or couch-surfing.) Yes 04/16/2023 Are you worried [...] st Contact Info) Description 04/29/2024 5:00 PM CLOTH COLORER Office Visit [facility] [address] [place] [address] Carlene Knight APRN CMM TECHNICIAN [address] [place], [place] [phone] 06/15/2024 9:30 AM CLOTH COLORER Office Visit [facility] [place] [address] [place] [address] Xu Prince MD 606 24[facility] 106 [place] [address] 07/21/2024 4:00 PM CLOTH COLORER Office Visit [facility] [address] [place] [address] [place] [address] [address] [place], [place] [phone] documented as of this encounter Visit Diagnoses Not on filedocumented in this encounter Care Teams Probation Manager Relationship Specialty Start [place] [address] [place] [address] PCP - General 03/05/23 Carlos Joyner MD [address] [place] [address] 727625 Urology 12/09/19 Jadon Murray MD [facility] [address] [facility] [address] [place] [address] Referring Physician Pediatric Surgery 12/09/19 Maru Villagomez RN Registered Nurse 12/10/19 Ang Slade MD [address] [place] [address] Urology 04/24/20 Carlos Joyner MD [address] [place] [address] 640885 Assigned Surgical Provider 12/24/20 Ang Slade MD [address] [place] [address] Urology 12/18/22 Lakshmi Wilhelm PA-C [address] [place] [address] 185615 Physician Electrical Engineering Drafting Officer Urology 02/03/23 [place] [address] [facility] [place] [address] Assigned PCP 02/06/23 Alissa Perez PA-C [address] [place] [address] 677945 Physician Electrical Engineering Drafting Officer Surgery 09/04/23 Lakshmi Wilhelm PA-C [address] [place] [address] Physician Electrical Engineering Drafting Officer Urology 09/16/23 Aidee Valero PA-C [address] [place] [address] 162745 Assigned Musculoskeletal Provider 04/17/24 Tanisha Marlow 4120 [facility] [address] 03/30/24 documented as of this encounter
--- OUTSIDE RECORDS SUMMARY | 2024-04-29 02:24 | XMS_ITS | Encounter Summary ---
Author Organization [facility] Address [address] [place] [address] Care Team Providers Care Provider Relations Representative Name Role Phone Carlos Joyner MD Unavailable [phone] Jadon Murray MD Unavailable [phone] Maru Villagomez RN Unavailable Unavailable Ang Slade MD Unavailable [phone] Carlos Joyner MD Unavailable [phone] Ang Slade MD Unavailable [phone] Lakshmi Wilhelm PA-C Unavailable [phone] Heladio Willoughby MD Primary Care Provider [phone] Heladio Willoughby MD Unavailable Alissa Perez PA-C Unavailable [phone] Lakshmi Wilhelm PA-C Unavailable Reason for Visit * Reason Comments Consult Patient has spina bi fida.need to establish care Encounter Details Date Type Department Care Team (Latest Contact Info) Description 03/30/2024 2:00 PM SLOPE TENDER Office Visit [facility] [address] 4th [place] [address] Aidee Valero PA-C [address] [place] [address] History of spinal fusion (Primary Dx); Thoracic [...] - Inhaled Oxygen Concentration - - Weight 61.2 kg (135 lb) 03/30/2024 2:01 PM SLOPE TENDER Height 147.3 cm (4' 10) 03/30/2024 2:01 PM SLOPE TENDER Body Mass Index 28.22 03/30/2024 2:01 PM SLOPE TENDER documented in this encounter Progress Notes * Aidee Valero PA-C - 03/30/2024 2:00 PM CST Images from the original note were not included. Laina Escudero complains of Chief Complaint Patient presents with Consult Patient has spina bifida.need to establish care I have reviewed and updated the patient's Past Medical History, Social History, Family History and Medication List. ALLERGIES Ibuprofen, Latex, Nsaids, and Vancomycin Spine Surgery Consultation REFERRING PHYSICIAN: Aidee Valero PRIMARY CARE PHYSICIAN: Heladio Willoughby Chief Complaint: Consult (Patient has spina bifida.need to establish care) History of Present Illness: Symptom Profile Including: location of symptoms, onset, severity, exacerbating/alleviating factors,previous treatments: Laina Escudero is a 23 year old female who presents today to establish care for spina bifida. Patient born with spina bifida. Presents today with her nurse and correctional case records supervisor/guardian (Tanisha). Previously managed for spina bifida care with [facility]; is working on transitioning care to adult centers since she is 23. She underwent spinal fusion at [facility] in April 2011. Se[address]. 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 Has seen by Colon Surgeon here at the [facility] for neurogenic bowel and perianal irritation. She follows with primary care provider Dr. Heladio Willoughby here at the [facility]. They have a PM&R team who manages wheelchair adjustments. Today, history is provided by Laina and supplemented by Tanisha her guardian/ correctional case records supervisor. Laina denies back pain, nerve symptoms, sitting intolerance, or other complaints today. Denies skin breakdown, prominent hardware, etc. she did have an MRI recently which did cause her significant back pain while needing to lay flat, but otherwise does not have pain on a day-to-day basis. She reports she has full function of her arms. She usually sits in her wheelchair during the day, and does not have issues with this. Spine Surgery hx: 01/19/2010 - L2 vertebrectomy with L1-3 fusion (Dr. Kulwant Alexandra, [facility]) for lumbar kyphosis with myelodysplasia 05/01/2011 - W60-stilsr posterior spinal fusion (?doctor, [facility]) for lumbar kyphosis [?Instrumentation] DOMONIQUE Scores: Oswestry (DOMONIQUE) Questionnaire 03/25/2024 11:56 AM OSWESTRY DISABILITY INDEX Count 9 Sum 19 Oswestry Score (%) 42.22 % Patient-reported Visual Analog Pain Scale Back Pain Scale 0-10: 0 Right leg pain: 0 Left leg pain: 0 Neck Pain Scale 0-10: 0 Right arm pain: 0 Left arm pain: 0 PROMIS-10 Scores: Global Mental Health Score: (Proxy-Rptd) (P) 12 Global Physical Health Score: (Proxy-Rptd) (P) 13 PROMIS TOTAL - SUBSCORES: (Proxy-Rptd) (P) 25 Physical Exam: Constitutional - Patient is healthy, well-nourished and appears stated age Respiratory - Patient is breathing normally and in no respiratory distress. Skin - No suspicious rashes or lesions. Psychiatric - Normal mood and affect. Cardiovascular - Extremities warm and well perfused. Eyes - Visual acuity is normal to the written word. ENT - Hearing intact to the spoken word. GI - No abdominal distention. Musculoskeletal -presents in a power wheelchair today. Not in acute distress. Able to flex forward without pain or difficulty. Well-healed midline surgical incision without evidence of wound dehiscence or skin breakdown. No gross deformity or hardware prominence. Patient reports LE paraplegia. Bilateral upper extremity strength: 5/5 shoulder abduction, elbow flexion and extension, wrist flexion and extension. 4/5 timber killer strength bilaterally. 3/5 strength with interossei bilaterally. Imaging: I independently reviewed & provided my own interpretation of new radiographs and/ or advanced imaging at this clinic visit. The results were discussed with the patient. Findings include: 03/30/2024 full spine seated AP/lateral view x-rays: Stable appearance of posterior instrumentation.Stable appearance of haloing around bilateral pelvic fixation screws. Stable appearance of adjacentsegment kyphosis compared to previous CT scans available 04/01/2023 CT chest abdomen pelvis without contrast: Haloing surrounding bilateral pelvic screws. solid fusion mass T10-S1. Stable proximal junctional kyphosis measured at 31 degrees between T9-10 Assessment and Plan: Assessment: 23 year old female with complex PMH spina bifida with T12 paraplegia, neurogenic bowel/bladder, history of PISF [id number]. Stable PJK, stable haloing bilateral pelvic instrumentation. No complaints or concerns today Plan: Patient here to establish care with spine surgery team, transitioning care from [facility]. Currently without any complaints. Reviewed today's XR images which demonstrate stable instrumentation, stable appearance of adjacent segment kyphosis which has been present for at least the past 4 years upon review of previous imaging. Would recommend follow-up in 2 years with repeat images, or sooner if issues arise. Reviewed patient's case with Drs. Le and Kurtis who agree with plan for follow-up, no other advanced imaging or procedures necessary at this time. - Obtain operative report from previous [facility] spine surgery so we have records of current implants in case of need for any future spine surgery - Follow up in about 2 years with repeat full spine seated AP/lateral view XR, or sooner if issues arise. Respectfully, Aidee Valero (tommy Mujica)MAINE [facility] Surgery Dept Orthopaedic Surgery, [facility] 35 minutes spent on the date of the encounter doing chart review, review of outside records, reviewof test results, my own interpretation of tests, documentation, patient history, physical exam & discussion of plan with patient and family. Dictation Disclaimer: Some of this Note has been completed with voice- recognition dictation software. Although errors are generally corrected real- time, there is the potential for a rare error to be present in the completed chart. E TENDER documented in this encounter Plan of Treatment Upcoming Encounters Date Type Department Care Team (Late st Contact Info) Description 04/29/2024 5:00 PM SLOPE TENDER [facility] [address] [place] [address] Carlene Knight APRN TRACK LAYER HEAD [address] [place], [place] 54569[address] 06/15/2024 9:30 AM SLOPE TENDER Office Visit [address] [address] Xu Prince MD [address] [place] [address] 07/21/2024 4:00 PM SLOPE TENDER Office Visit [facility] [address] [address] [place] [address] [place] [address] [address] [place] [phone] documented as of this encounter Visit Diagnoses Diagnosis History of spinal fusion- Primary Arthrodesis status Thoracic spina bifida, unspecified hydrocephalus presence (H) documented in this encounter Care Teams Provider Relations Representative Relationship Specialty [place] [address] [address] [id number] PCP - General 03/05/23 Carlos Joyner MD [address] [place] [address] 764835 Urology 12/09/19 Jadon Murray MD [facility] 2530 [facility] 550 [place] [address] Referring Physician Pediatric Surgery 12/09/19 Maru Villagomez, RN Registered Nurse 12/10/19 Ang Slade MD [address] [place] [address] Urology 04/24/20 Carlos Joyner MD [address] [place] [address] 065495 Assigned Surgical Provider 12/24/20 Ang Slade MD [address] [address] Urology 12/18/22 Lakshmi Wilhelm PA-C [address] [place] [address] Physician Journeyman Tool And Die Maker Urology 02/03/23 [place] [address] [place] [address] Assigned PCP 02/06/23 Alissa Perez PA-C [address] [place] [address] Physician Journeyman Tool And Die Maker Surgery 09/04/23 Lakshmi Wilhelm PA-C [address] [place] [address] Physician Journeyman Tool And Die Maker Urology 09/16/23 Tanisha Marlow [facility] [address] 03/30/24 documented as of this encounter
--- OUTSIDE RECORDS SUMMARY | 2024-04-29 02:24 | XMS_ITS | Encounter Summary ---
Author Organization [facility] Address [address] [place] [address]. [place] [address] Care Team Providers Care Pipe Stem Sawyer Name Role Phone Carlos Joyner MD Unavailable [phone] Jadon Murray MD Unavailable [phone] Maru Villagomez RN Unavailable Unavailable Ang Slade MD Unavailable [phone] Carlos Joyner MD Unavailable [phone] Ang Slade MD Unavailable [phone] Lakshmi Wilhelm PA-C Unavailable [phone] Heladio Willoughby MD Primary Care Provider [phone] Heladio Willoughby MD Unavailable Alissa Perez PA-C Unavailable [phone] Lakshmi Wilhelm PA-C Unavailable [phone] Aidee Valero PA-C Unavailable [phone] Encounter Details Date Type Department Care Team (Late st Contact Info) Description 05/05/2023 [facility] Medical Advice [facility] [address] 4th [place] [address] Rosita Velasco, RN Social History [...] st Contact Info) Description 04/29/2024 5:00 PM DIRECTOR WHOLESALE Office Visit [facility] [address] [place] [address] Carlene Knight APRN [facility] [address] [place], [place] [phone] 06/15/2024 9:30 AM DIRECTOR WHOLESALE Office Visit [place] [address] [place] [address] Xu Prince MD [address] [address] 07/21/2024 4:00 PM DIRECTOR WHOLESALE Office Visit [facility] [address] [address] [phone] [place] [address] [address] [id number] documented as of this encounter Visit Diagnoses Not on filedocumented in this encounter Care Teams Pipe Stem Sawyer Relationship Specialty [place] [address] [address] [phone] PCP - General 03/05/23 Carlos Joyner MD [address] [place] [address] Urology 12/09/19 Jadon Murray MD [facility] 2530 [facility] 550 [place] [address] Referring Physician Pediatric Surgery 12/09/19 Maru Villagomez, OTILIO Registered Nurse 12/10/19 Ang Slade MD [address] [place] [address] Urology 04/24/20 Carlos Joyner MD [address] [place] [address] Assigned Surgical Provider 12/24/20 Ang Slade MD [address] [address] Urology 12/18/22 Lakshmi Wilhelm PA-C [address] [place] [address] Physician Chemical Equipment Sales Engineer Urology 02/03/23 [place] [address] [facility] [place] [address] Assigned PCP 02/06/23 Alissa Perez PA-C [address] [place] [address] Physician Chemical Equipment Sales Engineer Surgery 09/04/23 Lakshmi Wilhelm PA-C [address] [place] [address] Physician Chemical Equipment Sales Engineer Urology 09/16/23 Aidee Valero PA-C [address] [place] [address] Assigned Musculoskeletal Provider 04/17/24 Tanisha Marlow 4[address] [facility] [address] 03/30/24 documented as of this encounter
--- OUTSIDE RECORDS SUMMARY | 2024-04-29 02:24 | XMS_ITS | Encounter Summary ---
Author Organization [facility] Address [address] [place] [address] Care Team Providers Care General Production Laborer Name Role Phone Carlos Joyner MD Unavailable [phone] Jadon Murray MD Unavailable + [phone] Maru Villagomez RN Unavailable Unavailable Ang Slade MD Unavailable [phone] Carlos Joyner MD Unavailable [phone] Ang Slade MD Unavailable [phone] Lakshmi WilhelmC Unavailable [phone] Heladio Willoughby MD Primary Care Provider [phone] Heladio Willoughby MD Unavailable Alissa Perez-C Unavailable [phone] Lakshmi WilhelmC Unavailable [phone] Encounter Details Date Type Department Care Team (Latest Contact Info) Description 03/25/2024 Travel Social History Tobacco Use Types Packs/Day [...] st Contact Info) Description 04/29/2024 5:00 PM EVENT MANAGEMENT CONSULTANT [facility] [address] [place] [address] Carlene Knight APRN CIGARETTE INSPECTOR [address] [place], [place] [phone] 06/15/2024 9:30 AM EVENT MANAGEMENT CONSULTANT Office Visit [facility] [address] [address] Xu Prince MD [address] [place] [address] 07/21/2024 4:00 PM EVENT MANAGEMENT CONSULTANT Office Visit [facility] [address] [place] [phone] [place] [address] [place], [place] [phone] documented as of this encounter Visit Diagnoses Not on filedocumented in this encounter Care Teams General Production Laborer Relationship Specialty Start [place] [address] [place] [address] PCP - General 03/05/23 Carlos Joyner MD [address] [place] [address] Urology 12/09/19 Jadon Murray MD [facility] [address] [id number] Referring Physician Pediatric Surgery 12/09/19 Maru Villagomez, OTILIO Registered Nurse 12/10/19 Ang Slade MD [address] [place] [address] 311955 Urology 04/24/20 Carlos Joyner MD [address] [place] [address] 652915 Assigned Surgical Provider 12/24/20 Ang Slade MD [address] [place] [address] Urology 12/18/22 Lakshmi Wilhelm PA-C [address] [place] [address] 402795 Physician Neck Band Maker Urology 02/03/23 [place] [address] [place] [address] Assigned PCP 02/06/23 Alissa Perez PA-C [address] [place] [address] Physician Neck Band Maker Surgery 09/04/23 Lakshmi Wilhelm PA-C [address] [place] [address] Physician Neck Band Maker Urology 09/16/23 documented as of this encounter
--- OUTSIDE RECORDS SUMMARY | 2024-04-29 02:24 | XMS_ITS | Encounter Summary ---
Author Organization [employer] Address [address] [place] [address] Care Team Providers Care Director Of Intelligence Name Role Phone Carlos Joyner MD Unavailable [phone] Jadon Murray MD Unavailable + [phone] Maru Villagomez RN Unavailable Unavailable Ignacia Duran MD Primary Care Provider [phone] Ang Slade MD Unavailable [phone] Carlos Joyner MD Unavailable [phone] Ang Slade MD Unavailable [phone] Lakshmi Wilhelm-C Unavailable +[phone] Heladio Willoughby MD Primary Care Provider [phone] Heladio Willoughby MD Unavailable Alissa Perez PA-C Unavailable [phone] Lakshmi Wilhelm-C Unavailable [phone] Aidee Valero PA-C Unavailable +[phone] Encounter Details Date Type Department Care Team (Late st Contact Info) Description 01/07/2023 [facility] [address] [place] [address] Analisa Palacio, OTILIO Social History Tobacco Use Types Packs/Day Years Used Date Smoking Tobacco: Never Smokeless Tobacco: Never Alcohol Use Standard Drinks/Week Comments Not Currently 0 (1 standard drink = 0.6 oz pur e alcohol) PHQ-2 Answer Date Recorded PHQ-2 Score 0 04/02/2022 Comments No Sex and Gender Information Value [...] st Contact Info) Description 04/29/2024 5:00 PM ALUMNI RELATIONS MANAGER [facility] [address] [place] [address] Carlene Knight APRN SUPERVISOR ASSEMBLY STOCK [address] [place], [place] 1190068 06/15/2024 9:30 AM ALUMNI RELATIONS MANAGER Office Visit [address] [phone] Xu Prince MD [address] [place] [address] 07/21/2024 4:00 PM ALUMNI RELATIONS MANAGER [facility] [address] [place] [address] [place] [address] [place], [place] [phone] documented as of this encounter Visit Diagnoses Not on filedocumented in this encounter Additional Health Concerns Infection Onset Date Last Indicated Resolved Time MRSA Comment:Added from external infection. Pt has had Staph infections but never MRSA from Care everywhere chart review. Removing MRSA 02.06.23 06/17/2019 02/06/2023 9:41 AM C DT documented as of this encounter Care Teams Director Of Intelligence Relationship Specialty Start Date End Date Ignacia Duran MD PCP - General Pediatrics 01/20/20 03/04/23 [place] [address] [place] [address] PCP - General 03/05/23 Carlos Joyner MD [address] [place] [address] Urology 12/09/19 Jadon Murray MD [facility] [address] [id number] Referring Physician Pediatric Surgery 12/09/19 Maru Villagomez, RN Registered Nurse 12/10/19 Ang Slade MD [address] [place] [address] Urology 04/24/20 Carlos Joyner MD [address] [place] [address] 88[address] Assigned Surgical Provider 12/24/20 Ang Slade MD [address] [place] [address] 394 [place] [address] Urology 12/18/22 Lakshmi Wilhelm PA-C [address] [place] [address] 580785 Physician Trauma Coordinator Urology 02/03/23 [place] [address] [place] [address] Assigned PCP 02/06/23 Alissa Perez PA-C [address] [place] [address] 705425 Physician Trauma Coordinator Surgery 09/04/23 Lakshmi Wilhelm PA-C [address] [place] [address] 376495 Physician Trauma Coordinator Urology 09/16/23 Aidee Valero PA-C [address] [place] [address] 692635 Assigned Musculoskeletal Provider 04/17/24 Tanisha Marlow 4120 [facility] [address] 03/30/24 documented as of this encounter
--- OUTSIDE RECORDS SUMMARY | 2024-04-29 02:24 | XMS_ITS | Encounter Summary ---
Author Organization [place] Address [address] [place] [address] Care Team Providers Care Escort Patients Name Role Phone Carlos Joyner MD Unavailable [phone] Jadon Murray MD Unavailable [phone] Maru Villagomez RN Unavailable Unavailable Ang Slade MD Unavailable [phone] Carlos Joyner MD Unavailable [phone] Ang Slade MD Unavailable [phone] Lakshmi Wilhelm-C Unavailable [phone] Heladio Willoughby MD Primary Care Provider [phone] Heladio Willoughby MD Unavailable Alissa Perez PA-C Unavailable [phone] Lakshmi Wilhelm-C Unavailable [phone] Reason for Visit * Reason Comments Medication Refill Potassium Chloride C ngoc ER Oral Tablet Extended Release 10 MEQ Encounter Details Date Type Department Care Team (Late st Contact Info) Description 02/14/2024 Refill [facility] [address] [place] [address] Carlos Joyner MD [address] [place] [address] Medication Refill (Potassium Chloride Nieves ER Oral Tablet Extended Release 10 MEQ) Social History Tobacco Use Types Packs/Day Years [...] encounter Miscellaneous Notes * Telephone Encounter - Judy Grnada RN - 02/20/2024 7:54 AM CDT Potassium Chloride Nieves ER Oral Tablet Extended Release 10 MEQ Last Written Prescription Date: 06/23/23 Last Fill Quantity: 90( 45 days), # refills: 3 Last Office Visit : 09/23/23 Future Office visit: None Routing refill request to provider for review/approval because: Potassium Chloride NIEVES not on UROLOGY Health refill protocol documented in this encounter Plan of Treatment Upcoming Encounters Date Type Department Care Team (Late st Contact Info) Description 04/29/2024 5:00 PM TRAUMA COUNSELLOR [facility] [address] [place] [address] Carlene Knight APRN DIRECTOR DIVERSITY [address] [place], [place] [phone] 06/15/2024 9:30 AM TRAUMA COUNSELLOR Office Visit [facility] [address] [place] [phone] Xu Prince MD [address] [place] [address] 106 [place] [address] 07/21/2024 4:00 PM TRAUMA COUNSELLOR [facility] [address] [place] [address] [place] [address] [place], [place] [phone] documented as of this encounter Visit Diagnoses Diagnosis Hypercalciuria Unspecified disorders of calcium metabolism documented in this encounter Care Teams Escort Patients Relationship Specialty Start [place] [address] [place], [place] [phone] PCP - General 03/05/23 Carlos Joyner MD 909 [place] [address] Urology 12/09/19 Jadon Murray MD [facility] 2530 [facility] 550 [place] [address] Referring Physician Pediatric Surgery 12/09/19 Maru Villagomez, RN Registered Nurse 12/10/19 Ang Slade MD [address] 427725 Urology 04/24/20 Carlos Joyner MD [address] [place] [address] 608185 Assigned Surgical Provider 12/24/20 Ang Slade MD [address] [place] [address] 231545 Urology 12/18/22 Lakshmi Wilhelm PA-C [address] [place] [address] 594475 Physician Textile Technical Officer Urology 02/03/23 [place] [address] [place] [address] Assigned PCP 02/06/23 Alissa Perez PA-C [address] [place] [address] 912775 Physician Textile Technical Officer Surgery 09/04/23 Lakshmi Wilhelm PA-C [address] [place] [address] Physician Textile Technical Officer Urology 09/16/23 documented as of this encounter
--- OUTSIDE RECORDS SUMMARY | 2024-04-29 02:24 | XMS_ITS | Encounter Summary ---
Author Organization [place] Address [address] [facility] [place] [address] Care Team Providers Care Garland Machine Operator Name Role Phone Carlos Joyner MD Unavailable [phone] Jadon Murray MD Unavailable [phone] Maru Villagomez RN Unavailable Unavailable Ang Slade MD Unavailable [phone] Carlos Joyner MD Unavailable [phone] Ang Slade MD Unavailable [phone] Lakshmi Wilhelm PA-C Unavailable [phone] Heladio Willoughby MD Primary Care Provider [phone] Heladio Willoughby MD Unavailable Alissa Perez PA-C Unavailable [phone] Lakshmi Wilhelm PA-C Unavailable [phone] Aidee Valero PA-C Unavailable [phone] Encounter Details Date Type Department Care Team (Late st Contact Info) Description 03/27/2023 [facility] Medical Advice UR PREOP/PHASE II 2450 [place] [phone] Lisette Salinas RN Social History Tobacco Use [...] in an overnight custodial, or couch-surfing.) Yes 02/26/2023 Are you worried [...] getting things that you need? No 02/26/2023 Comments No Sex and Gender Information Value [...] st Contact Info) Description 04/29/2024 5:00 PM SLATE CUTTER Office [facility] [address] [place] [phone] Carlene Knight APRN HISTORY DEPARTMENT CHAIR [address] [place], [place] [phone] 06/15/2024 9:30 AM SLATE CUTTER Office Visit [facility] [address] [place] [address] Xu Prince MD 606 24 [facility] [place] 106 [place], [place] 532664 07/21/2024 4:00 PM SLATE CUTTER Office Visit [facility] [address] [place] [phone] [place] [address] [place] [address] documented as of this encounter Visit Diagnoses Not on filedocumented in this encounter Care Teams Garland Machine Operator Relationship Specialty Start [place] [address] [facility] [place] [address] PCP - General 03/05/23 Carlos Joyner MD [address] [place] [address] 923615 Urology 12/09/19 Jadon Murray MD [facility] [address] [facility] 550 [place] [address] Referring Physician Pediatric Surgery 12/09/19 Maru Villagomez RN Registered Nurse 12/10/19 Ang Slade MD [address] [place] [address] 394 [place], [place] 664325 Urology 04/24/20 Carlos Joyner MD [address] [place] [address] 629735 Assigned Surgical Provider 12/24/20 Ang Slade MD [address] [place] [address] 394 [place] [address] Urology 12/18/22 Lakshmi Wilhelm PA-C [address] [place] [address] Physician Government Minister Urology 02/03/23 [place] [address] [place] [address] Assigned PCP 02/06/23 Alissa Perez PA-C [address] [place] [address] Physician Government Minister Surgery 09/04/23 Lakshmi Wilhelm PA-C [address] [place] [address] Physician Government Minister Urology 09/16/23 Aidee Valero PA-C [address] [place] [address] 955305 Assigned Musculoskeletal Provider 04/17/24 Tanisha Malrow 4120 [facility] [place] [address] 03/30/24 documented as of this encounter
--- OUTSIDE RECORDS SUMMARY | 2024-04-29 02:24 | XMS_ITS | Encounter Summary ---
Author Organization [employer] Address [address] [place] [address] Care Team Providers Care Cement Tile Maker Name Role Phone Carlos Joyner MD Unavailable [phone] Jadon Murray MD Unavailable [phone] Maru Villagomez RN Unavailable Unavailable Ang Slade MD Unavailable [phone] Carlos Joyner MD Unavailable [phone] Ang Slade MD Unavailable [phone] Lakshmi Wilhelm-C Unavailable [phone] Heladio Willoughby MD Primary Care Provider [phone] Heladio Willoughby MD Unavailable Alissa Perez PA-C Unavailable [phone] Lakshmi Wilhelm-C Unavailable [phone] Aidee Valero PA-C Unavailable [phone] Encounter Details Date Type Department Care Team (Late st Contact Info) Description 09/08/2023 [facility] Medical Advice [address] [address] Bhavna Ferris Social History Tobacco [...] st Contact Info) Description 04/29/2024 5:00 PM FOOD QUALITY TECHNICIAN Office Visit [facility] [address] [place] [phone] Carlene Knight APRN [facility] [address] [place], [place] [phone] 06/15/2024 9:30 AM FOOD QUALITY TECHNICIAN Office Visit [place] [address] [place] [address] Xu Prince MD [address] [address] 07/21/2024 4:00 PM FOOD QUALITY TECHNICIAN Office Visit [facility] [place] [address] [address] [place] [phone] [place] [address] [address] [id number] documented as of this encounter Visit Diagnoses Not on filedocumented in this encounter Care Teams Cement Tile Maker Relationship Specialty [place] [address] [address] [id number] PCP - General 03/05/23 Carlos Joyner MD [address] [place] [address] Urology 12/09/19 Jadon Murray MD [facility] 2530 [facility] 550 [place] [address] Referring Physician Pediatric Surgery 12/09/19 Maru Villagomez, OTILIO Registered Nurse 12/10/19 Ang Slade MD [address] [place] [address] Urology 04/24/20 Carlos Joyner MD [address] [place] [address] Assigned Surgical Provider 12/24/20 Ang Slade MD [address] [address] Urology 12/18/22 Lakshmi Wilhelm PA-C [address] [place] [address] Physician Administrative Support Specialist Urology 02/03/23 [place] [address] [facility] [place] [address] Assigned PCP 02/06/23 Alissa Perez PA-C [address] [place] [address] Physician Administrative Support Specialist Surgery 09/04/23 Lakshmi Wilhelm PA-C [address] [place] [address] Physician Administrative Support Specialist Urology 09/16/23 Aidee Valero PA-C [address] [place] [address] Assigned Musculoskeletal Provider 04/17/24 Tanisha Marlow 4120 [facility] [address] 03/30/24 documented as of this encounter
--- OUTSIDE RECORDS SUMMARY | 2024-04-29 02:24 | XMS_ITS | Encounter Summary ---
Author Organization [place] Address [address] [place] [address] Care Team Providers Care Commercial Specialist Name Role Phone Carlos Joyner MD Unavailable [phone] Jadon Murray MD Unavailable [phone] Maru Villagomez RN Unavailable Unavailable Ang Slade MD Unavailable [phone] Carlos Joyner MD Unavailable [phone] Ang Slade MD Unavailable [phone] Lakshmi Wilhelm-C Unavailable [phone] Heladio Willoughby MD Primary Care Provider [phone] Heladio Willoughby MD Unavailable Alissa Perez PA-C Unavailable [phone] Lakshmi Wilhelm-C Unavailable [phone] Encounter Details Date Type Department Care Team (Late st Contact Info) Description 03/05/2024 10:45 AM CDT Lab [facility] [address] [place] [address] Kidney stone Social History Tobacco Use Types [...] st Contact Info) Description 04/29/2024 5:00 PM GUT CARRIER [facility] [address] [place] [address] Carlene Knight APRN PUBLIC SPEAKING TEACHER [address] [place] [address] 06/15/2024 9:30 AM GUT CARRIER Office Visit [facility] [address] [place] [address] Xu Prince MD [address] [address] 07/21/2024 4:00 PM GUT CARRIER [facility] [address] [place] [phone] [place] [address] [place] [address] documented as of this encounter Procedures Procedure Name Priority Date/Time Associated Diagnosis Comments ROUTINE UA WITH MICROSCOPIC Routine 03/05/2024 7:30 AM CDT Kidney stone URINE MICROSCOPIC EXAM Routine 03/05/2024 7:30 AM CDT Kidney stone URINE CULTURE Routine 03/05/2024 7:30 AM CDT Kidney stone documented in this encounter Results * (ABNORMAL) Urine Microscopic Exam (03/05/2024 7:30 AM CDT) Bacteria Urine Many(A) None Seen /HPF LINDA 03/05/2024 9:07 AM CDT [facility] RBC Urine 0-2 0-2 /HPF /HPF LINDA 03/05/2024 9:07 AM CDT [facility] WBC Urine >100(A) 0-5 /HPF /HPF LINDA 03/05/2024 9:07 AM CDT [facility] Squamous Epithelials Urine Few(A) None Seen /LPF LINDA 03/05/2024 9:07 AM CDT [facility] Urine URINE SPECIMEN FROM URINARY CONDUIT / Unknown Non-blood Collection / Unknown 03/05/2024 7:30 AM CDT 03/05/2024 8:59 AM CDT us Carlos Joyner MD LAB - URINE ORDERABLES Fin al Result LABORATORY [facility] - [facility] [address] [facility] (no room number, 1st floor of clinic) [place] [address], [facility] * (ABNORMAL) UA with Microscopic (03/05/2024 7:30 AM CDT) Color Urine Yellow Colorless, Straw, Light Yellow, Yellow 03/05/2024 9:06 AM CDT [facility] Appearance Urine Slightly Cloudy(A) Clear 03/05/2024 9:06 AM CDT LABORATORY Glucose Urine Negative Negative mg/dL 03/05/2024 9:06 AM CDT LABORATORY Bilirubin Urine Negative Negative 9:06 AM CDT LABORATORY Ketones Urine Negative Negative mg/dL 03/05/2024 9:06 AM CDT LABORATORY Specific [place] Urine 1.025 1.003 - 1.035 03/05/2024 9:06 AM CDT LABORATORY Blood Urine Negative Negative 03/05/2024 9:06 AM CDT LABORATORY pH Urine 7.0 5.0 - 7.0 03/05/2024 9:06 AM CDT LABORATORY Protein Albumin Urine Trace(A) Negative mg/dL 03/05/2024 9:06 AM CDT LABORATORY Urobilinogen Urine 0.2 0.2, 1.0 E.U./dL 03/05/2024 9:06 AM CDT LABORATORY Nitrite Urine Positive(A) Negative 03/05/2024 9:06 AM CDT LABORATORY Leukocyte Esterase Urine Moderate(A) Negative 03/05/2024 9:06 AM CDT LABORATORY Urine URINE SPECIMEN FROM URINARY CONDUIT / Unknown Non-blood Collection / Unknown 03/05/2024 7:30 AM CDT 03/05/2024 8:59 AM CDT us Carlos Joyner MD LAB - URINE ORDERABLES Fin al Result LABORATORY [facility] [address] [facility] (no room number, 1st floor of clinic) [place] [address], [facility] * (ABNORMAL) Urine Culture (03/05/2024 7:30 AM CDT) Culture 50,000-100,000 CFU/mL Escherichia coli(A) LINDA 03/07/2024 11:06 PM CDT [facility] Culture 10,000-50,000 CFU/mL Enterobacter cloacae complex(A) 03/07/2024 11:06 PM CDT [facility] Culture >100,000 CFU/mL Enterococcus faecalis(A) 03/07/2024 11:06 PM CDT [facility] Culture >100,000 CFU/mL Streptococcus constellatus(A) 03/07/2024 11:06 PM CDT [facility] Comment:This organism is aamir ceptible to ampicillin, penicillin, vancomycin and the cephalosporins. If treatment is required and your patient is allergic to penicillin, contact the microbiology lab within 5 days to request susceptibility testing. Urine URINE SPECIMEN OBTAINED VIA INDWELLING URINARY CATHETER / Unknown Non-blood Collection / Unknown 03/05/2024 7:30 AM CDT 03/05/2024 8:59 AM CDT Narrative Organism Antibiotic Method Susceptibility Escherichia coli Ampicillin LINDA <=2 ug/mL: Susceptible Escherichia coli Ampicillin/ Sulbactam LINDA <=2 ug/mL: Susceptible Escherichia coli Piperacillin/Tazobactam LINDA <=4 ug/mL: Susceptible Escherichia coli Cefazolin LINDA <=4 ug/mL: Susceptible Comment:Cefazolin MS C breakpoints are for the treatment of [...] for invasive infections, regardless of susceptibility results. Enterococcus faecalis Ampicillin LINDA <=2 ug/mL: Susceptible Enterococcus faecalis Vancomycin LINDA 1 ug/mL: Susceptible Enterococcus faecalis Nitrofurantoin LINDA <=16 ug/mL: Susceptible Carlos Joyner MD LAB - MICRO GENERAL ORDERA BLES Final Result [facility] Inf. Diseases Diag. Lab [address] [facility], Room [address] [place] [address] documented in this encounter Visit Diagnoses Diagnosis Kidney stone Calculus of kidney documented in this encounter Care Teams Commercial Specialist Relationship Specialty [place] [address] [place] [address] PCP - General 03/05/23 Carlos Joyner MD 9 [place] [address] Urology 12/09/19 Jadon Murray MD [facility] [address] [address] Referring Physician Pediatric Surgery 12/09/19 Maru Villagomez, RN Registered Nurse 12/10/19 Ang Slade MD [address] [place] [address] 405135 Urology 04/24/20 Carlos Joyner MD [address] [place] [address] 340685 Assigned Surgical Provider 12/24/20 Ang Slade MD [address] [place] [address] 845765 Urology 12/18/22 Lakshmi Wilhelm PA-C [address] [place] [address] Physician Cook Fish And Chips Urology 02/03/23 [place] [address] [place] [address] Assigned PCP 02/06/23 Alissa Perez PA-C [address] [place] [address] 897895 Physician [employer] Surgery 09/04/23 Lakshmi Wilhelm PA-C [address] [place] [address] 235425 Physician [employer] Urology 09/16/23 documented as of this encounter
--- OUTSIDE RECORDS SUMMARY | 2024-04-29 02:24 | XMS_ITS | Encounter Summary ---
Author Organization [place] Address [address] [place] [address] Care Team Providers Care Mechanic Chief Name Role Phone Carlos Joyner MD Unavailable [phone] Jadon Murray MD Unavailable [phone] Maru Villagomez RN Unavailable Unavailable Ang Slade MD Unavailable [phone] Carlos Joyner MD Unavailable [phone] Ang Slade MD Unavailable [phone] Lakshmi Wilhelm-C Unavailable [phone] Heladio Willoughby MD Primary Care Provider [phone] Heladio Willoughby MD Unavailable Alissa Perez PA-C Unavailable [phone] Lakshmi Wilhelm-C Unavailable [phone] Encounter Details Date Type Department Care Team (Late st Contact Info) Description 03/02/2024 [facility] Medical Advice [facility] Clinic [address] [place] [address] Carlos Joyner MD [address] [place] [address] Recurrent UTI (Primary Dx) Social History [...] st Contact Info) Description 04/29/2024 5:00 PM LABORER PETROLEUM REFINERY Office Visit [facility] [address] [place] [address] Carlene Knight APRN WAREHOUSE ENGINEER [address] [place], [place] [phone] 06/15/2024 9:30 AM LABORER PETROLEUM REFINERY Office Visit [address] [place] [address] Xu Prince MD [address] [place] [address] 07/21/2024 4:00 PM LABORER PETROLEUM REFINERY Office Visit [facility] [address] [place] [phone] [place] [address] [place] [phone] documented as of this encounter Visit Diagnoses Diagnosis Recurrent UTI- Primary Urinary tract infection, site not specified documented in this encounter Care Teams Mechanic Chief Relationship Specialty Start [place] [address] [address] [place] [phone] PCP - General 03/05/23 Carlos Joyner MD [address] [place] [address] Urology 12/09/19 Jadon Murray MD [facility] [address] [facility] 550 [place] [address] Referring Physician Pediatric Surgery 12/09/19 Maru Villagomez, RN Registered Nurse 12/10/19 Ang Slade MD [address] [place] [address] Urology 04/24/20 Carlos Joyner MD [address] [place] [address] Assigned Surgical Provider 12/24/20 nAg Slade MD [address] [place] [address] Urology 12/18/22 Lakshmi Wilhelm PA-C 909 [place], [place] 241855 Physician Forestry Consultant Urology 02/03/23 [place] [address] [place] [address] Assigned PCP 02/06/23 Alissa Perez PA-C [address] [place] [address] 155995 Physician Forestry Consultant Surgery 09/04/23 Lakshmi Wilhelm PA-C 909 [place] [address] Physician Forestry Consultant Urology 09/16/23 documented as of this encounter
--- OUTSIDE RECORDS SUMMARY | 2024-04-29 02:24 | XMS_ITS | Encounter Summary ---
Author Organization [place] Address [address] [place] [address] Care Team Providers Care Pulverizer Operator Name Role Phone Carlos Joyner MD Unavailable [phone] Jadon Murray MD Unavailable [phone] Maru Villagomez RN Unavailable Unavailable Ang Slade MD Unavailable +[phone] Carlos Joyner MD Unavailable [phone] Ang Slade MD Unavailable +[phone] Lakshmi WilhelmC Unavailable [phone] Heladio Willoughby MD Primary Care Provider [phone] Heladio Willoughby MD Unavailable Alissa Perez-C Unavailable [phone] Lakshmi WilhelmC Unavailable [phone] Encounter Details Date Type Department Care Team (Late st Contact Info) Description 03/09/2024 [facility] [address] [address] Aidee Valero PA-C [address] [place] [address] Social History Tobacco Use Types Packs/Day [...] in an abandoned building, in an overnight detention, or couch-surfing.) Yes 04/16/2023 Are you worried [...] encounter Miscellaneous Notes * Telephone Encounter - Chiara Harris - 03/09/2024 1:49 PM CDT Patient confirmed scheduled appointment: Date: 03/30/24 Time: 2:00PM Visit type: new lumbar spine Provider: Aidee Valero Location: [facility] documented in this encounter Plan of Treatment Upcoming Encounters Date Type Department Care Team (Late st Contact Info) Description 04/29/2024 5:00 PM BRIM SHAPER Office Visit [facility] [address] [place] [address] Carlene Knight APRN WATER PLUMBER [address] [place] [address] 06/15/2024 9:30 AM BRIM SHAPER Office Visit [facility] [address] [place] [phone] Xu Prince MD [address] [facility] 106 [place], [place] 051374 07/21/2024 4:00 PM BRIM SHAPER Office Visit [facility] [address] [place] [address] [place] [address] [place] [address] documented as of this encounter Visit Diagnoses Not on filedocumented in this encounter Care Teams Pulverizer Operator Relationship Specialty Start Date [place] [address] [place] [address] PCP - General 03/05/23 Carlos Joyner MD [address] [place] [address] 935455 Urology 12/09/19 Jadon Murray MD [facility] 2530 [facility] 550 [place] [address] Referring Physician Pediatric Surgery 12/09/19 Maru Villagomez, OTILIO Registered Nurse 12/10/19 Ang Slade MD [address] [place] [address] 394 [place], [place] 727015 Urology 04/24/20 Carlos Joyner MD [address] [place] [address] Assigned Surgical Provider 12/24/20 Ang Slade MD [address] [place] [address] Urology 12/18/22 Lakshmi Wilhelm PA-C [address] [place] [address] Physician Dye Boarding Machine Operator Urology 02/03/23 [place] [address] [place] [address] Assigned PCP 02/06/23 Alissa Perez PA-C [address] [place] [address] 209215 Physician Dye Boarding Machine Operator Surgery 09/04/23 Lakshmi Wilhelm PA-C [address] [place] [address] 026285 Physician Dye Boarding Machine Operator Urology 09/16/23 documented as of this encounter
--- OUTSIDE RECORDS SUMMARY | 2024-04-29 02:24 | XMS_ITS | Encounter Summary ---
Author Organization [place] Address [address] [place] [address]85 Care Team Providers Care Sewing Machine Repairer Name Role Phone Carlos Joyner MD Unavailable [phone] Jadon Murray MD Unavailable + [phone] Maru Villagomez RN Unavailable Unavailable Ang Slade MD Unavailable +[phone] Carlos Joyner MD Unavailable [phone] Ang Slade MD Unavailable [phone] Lakshmi WilhelmC Unavailable [phone] Heladio Willoughby MD Primary Care Provider [phone] Heladio Willoughby MD Unavailable Alissa Perez-C Unavailable [phone] Lakshmi WilhelmC Unavailable [phone] Encounter Details Date Type Department Care Team (Latest Contact Info) Description 03/05/2024 Travel Social History Tobacco Use Types Packs/Day [...] in an abandoned building, in an overnight intermediate, or couch-surfing.) Yes 04/16/2023 Are you worried [...] st Contact Info) Description 04/29/2024 5:00 PM GUARD MUSEUM [facility] [address] [place] [address] Carlene Knight APRN MANAGER READING [address] [place], [place] 25690[address] 06/15/2024 9:30 AM GUARD MUSEUM Office Visit [facility] [address] [address] Xu Prince MD [address] [place] [address] 07/21/2024 4:00 PM GUARD MUSEUM Office Visit [facility] [address] [place] [address] [place] [address] [place], [place] 2521194 documented as of this encounter Visit Diagnoses Not on filedocumented in this encounter Care Teams Sewing Machine Repairer Relationship Specialty [place] [address] [place] [address] PCP - General 03/05/23 Carlos Joyner MD [address] [place] [address] Urology 12/09/19 Jadon Murray MD [facility] [address] [phone] Referring Physician Pediatric Surgery 12/09/19 Maru Villagomez, OTILIO Registered Nurse 12/10/19 Ang Slade MD [address] [place] [address] 903335 Urology 04/24/20 Carlos Joyner MD [address] [place] [address] 066125 Assigned Surgical Provider 12/24/20 Ang Slade MD [address] [place] [address] Urology 12/18/22 Lakshmi Wilhelm PA-C [address] [place] [address] 743025 Physician Stem Mounter Urology 02/03/23 [place] [address] [place] [address] Assigned PCP 02/06/23 Alissa Perez PA-C [address] [place] [address] Physician Stem Mounter Surgery 09/04/23 Lakshmi Wilhelm PA-C [address] [place] [address] Physician Stem Mounter Urology 09/16/23 documented as of this encounter
--- OUTSIDE RECORDS SUMMARY | 2024-04-29 02:24 | XMS_ITS | Encounter Summary ---
Author Organization [place] Address [address] [place] [address] Care Team Providers Care Costume Maker Name Role Phone Carlos Joyner MD Unavailable [phone] Jadon Murray MD Unavailable [phone] Maru Villagomez RN Unavailable Unavailable Ang Slade MD Unavailable [phone] Carlos Joyner MD Unavailable +[phone] Ang Slade MD Unavailable +[phone] Lakshmi Wilhelm-C Unavailable [phone] Heladio Willoughby MD Primary Care Provider [phone] Heladio Willoughby MD Unavailable Alissa Perez PA-C Unavailable [phone] Lakshmi Wilhelm-C Unavailable [phone] Encounter Details Date Type Department Care Team (Late st Contact Info) Description 12/29/2023 Medical Correspondence [facility] 3510 [facility] 180 [place] [address] Scan, Non-Provider Social History Tobacco Use Types [...] st Contact Info) Description 04/29/2024 5:00 PM ADMISSIONS RECRUITER Office Visit [facility] [address] [place] [phone] Carlene Knight APRN LINUX DEVOPS ENGINEER [address] [place], [place] 2065768 06/15/2024 9:30 AM ADMISSIONS RECRUITER Office Visit [facility] [place] [address] [place] [address] Xu Prince MD [address] 836414 07/21/2024 4:00 PM ADMISSIONS RECRUITER [facility] [address] [place] [address] [place] [address] [place] [address] documented as of this encounter Visit Diagnoses Not on filedocumented in this encounter Care Teams Costume Maker Relationship Specialty [place] [address] [address] [place] [phone] PCP - General 03/05/23 Carlos Joyner MD [address] [place] [address] 388235 Urology 12/09/19 Jadon Murray MD [facility] [address] [address] Referring Physician Pediatric Surgery 12/09/19 Maru Villagomez, RN Registered Nurse 12/10/19 Ang Slade MD [address] [place] [address] Urology 04/24/20 Carlos Joyner MD [address] [place] [address]95 Assigned Surgical Provider 12/24/20 Ang Slade MD [address] [place] [address] Urology 12/18/22 Lakshmi Wilhelm PA-C [address] [place] [address]89 Physician Snaker Driving Horses Urology 02/03/23 [place] [address] [facility] [place] [address] Assigned PCP 02/06/23 Alissa Perez PA-C [address] [place] [address] [phone] Physician Snaker Driving Horses Surgery 09/04/23 Lakshmi Wilhelm PA-C [address] [place] [address] [phone] Physician Snaker Driving Horses Urology 09/16/23 documented as of this encounter
--- OUTSIDE RECORDS SUMMARY | 2024-04-29 02:24 | XMS_ITS | Encounter Summary ---
Author Organization [place] Address [address] [place] [address] Care Team Providers Care Sales Training Manager Name Role Phone Carlos Joyner MD Unavailable [phone] Jadon Murray MD Unavailable [phone] Maru Villagomez RN Unavailable Unavailable Ang Slade MD Unavailable +[phone] Carlos Joyner MD Unavailable [phone] Ang Slade MD Unavailable +[phone] Lakshmi Wilhelm PA-C Unavailable +[phone] Heladio Willoughby MD Primary Care Provider [phone] Heladio Willoughby MD Unavailable Alissa Perez PA-C Unavailable [phone] Lakshmi Wilhelm PA-C Unavailable [phone] Aidee Valero PA-C Unavailable +[phone] Reason for Visit * Reason Onset Date Comments Appointment 03/09/2024 Encounter Details Date Type Department Care Team (Late st Contact Info) Description 03/09/2024 Telephone [facility] [place] 033[address] [facility] [address] 4th [place] [address] Unknown, Doctor, MD Appointment Social History Tobacco Use Types Packs/Day [...] encounter Miscellaneous Notes * Telephone Encounter - Jaimie Melo - 03/09/2024 11:06 AM CDT Appointment Reason for Call: Patient's guardian calling because they need to establish care with an ortho spineprovider. Patient has spina bifida - checking which provider she should see. documented in this encounter Plan of Treatment Upcoming Encounters Date Type Department Care Team (Late st Contact Info) Description 04/29/2024 5:00 PM PHARMACIST INTERN Office Visit [facility] [address] [place] [phone] Carlene Knight APRN [facility] [address] [place], [place] 7116868 06/15/2024 9:30 AM PHARMACIST INTERN Office Visit [facility] [address] [place] [address] Xu Prince MD [address] [place] [address] 106 [place], [place] [phone] 07/21/2024 4:00 PM PHARMACIST INTERN Office Visit [facility] [address] [place] [address] [place] [address] [place], [place] 0621068 documented as of this encounter Visit Diagnoses Not on filedocumented in this encounter Care Teams Sales Training Manager Relationship Specialty Start [place] [address] [place] [address] [phone] PCP - General 03/05/23 Carlos Joyner MD [address] [place] [address] Urology 12/09/19 Jadon Murray MD [facility] 2530 [facility] 550 [place] [address] Referring Physician Pediatric Surgery 12/09/19 Maru Villagomez, OTILIO Registered Nurse 12/10/19 Ang Slade MD [address] [place] [address] 394 [place] [address] Urology 04/24/20 Carlos Joyner MD [address] [place] [address] Assigned Surgical Provider 12/24/20 Ang Slade MD [address] [place] [address] Urology 12/18/22 Lakshmi Wilhelm PA-C [address] [place] [address] 03800 Physician Executive Administrative Assistant Urology 02/03/23 [place] [address] [place] [address] Assigned PCP 02/06/23 Alissa Perez PA-C [address] [place] [address]136 Physician Executive Administrative Assistant Surgery 09/04/23 Lakshmi Wilhelm PA-C [address] [place] [address] Physician Executive Administrative Assistant Urology 09/16/23 Aidee Valero PA-C [address] [place] [address] Assigned Musculoskeletal Provider 04/17/24 Tanisha Marlow 4120 [facility] [address] 03/30/24 documented as of this encounter
--- OUTSIDE RECORDS SUMMARY | 2024-04-29 02:24 | XMS_ITS | Encounter Summary ---
Author Organization [place] Address [address] [place] [address] 30897 Care Team Providers Care Flavor Room Worker Name Role Phone Carlos Joyner MD Unavailable [phone] Jadon Murray MD Unavailable Maru Villagomez RN Unavailable Unavailable Ang Slade MD Unavailable [phone] Carlos Joyner MD Unavailable [phone] Ang Slade MD Unavailable [phone] Lakshmi Wilhelm PA-C Unavailable Heladio Willoughby MD Primary Care Provider Heladio Willoughby MD Unavailable Alissa Perez PA-C Unavailable [phone] Lakshmi Wilhelm PA-C Unavailable [phone] Reason for Referral * Diagnostic Imaging XR (Routine) - Pending Review Specialty Diagnoses / Procedures Referred By Charli t Referred To Contact Radiology. Diagnoses Thoracic spina bifida, unspecified hydrocephalus presence (H) Procedures XR Spine Complete Scoliosis 2 Views XR Spine Complete Scoliosis 2 Views Aidee Valero PA-C 901 [place] [address] Phone: tel: fax: Referral ID Status Reason Start Date Expiration Date V isits Requested Visits Authorized [id number] Pending Review 03/23/2024 03/23/2025 1 1 Encounter Details Date Type Department Care Team (Late st Contact Info) Description 03/23/2024 Orders Only [facility] [address] 4th [place] [address] Aidee Valero PA-C [address] [place] [address] Thoracic spina bifida, unspecified hydrocephalus presence (H) (Primary Dx) Social History Tobacco Use [...] as of this encounter Miscellaneous Notes * Addendum Note - Dandre Jaramillo MA - 03/23/2024 4:30 PM CDTAddended by: DANDRE JARAMILLO on: 03/23/2024 04:37 PM Modules accepted: Orders documented in this encounter Plan of Treatment Upcoming Encounters Date Type Department Care Team (Late st Contact Info) Description 04/29/2024 5:00 PM NEPHROLOGIST [facility] [address] [place] [phone] Carlene Knight APRN REMOTE SENSING SPECIALIST [address] [place] [address] 06/15/2024 9:30 AM NEPHROLOGIST Office Visit [address] [phone] Xu Prince MD [address] [place] [address] 64584454 07/21/2024 4:00 PM NEPHROLOGIST Office Visit [facility] [address] [place] [address] [place] [address] [place], [place] [phone] documented as of this encounter Results * XR Spine Complete Scoliosis 2 Views (03/30/2024 1:38 PM NEPHROLOGIST) Anatomical Region Laterality Modality Spine Computed Radiogr aphy Impressions 03/31/2024 1:57 PM NEPHROLOGIST Impression: 1. Postoperative changes of T10 through pelvis fusion without evidence of hardware complication. 2. No substantial coronal curvature of the spine. 3. Negative global coronal imbalance. 4. Positive global sagittal imbalance. MILLA CHOI DO Narrative 03/31/2024 1:57 PM NEPHROLOGIST Exam: Full spine radiographs using EOS History: [...] spine. Negative global coronal imbalance. Sagittal Vertical [place] (A vertical line drawn from the center [...] spine. Negative global coronal imbalance. Sagittal Vertical [place] (A vertical line drawn from the center [...] Diagnosis Thoracic spina bifida, unspecified hydrocephalus presence (H)- Primary Thoracic spina bifida, unspecified hydrocephalus presence (H) documented in this encounter Care Teams Flavor Room Worker Relationship Specialty Start [place] [address] [place], [place] 3296368 PCP - General 03/05/23 Carlos Joyner MD [address] [place] [address] Urology 12/09/19 Jadon Murray MD [facility] [address] [address] Referring Physician Pediatric Surgery 12/09/19 Maru Villagomez, RN Registered Nurse 12/10/19 Ang Slade MD [address] [place] [address] Urology 04/24/20 Carlos Joyner MD [address] [place] [address] 331845 Assigned Surgical Provider 12/24/20 Ang Slade MD [address] [place] [address] Urology 12/18/22 Lakshmi Wilhelm PA-C [address] [place] [address] 351065 Physician Metal Drill Press Operator Urology 02/03/23 [place] [address] [place] [address] Assigned PCP 02/06/23 Alissa Perez PA-C [address] [place] [address] Physician Metal Drill Press Operator Surgery 09/04/23 Lakshmi Wilhelm PA-C [address] [place] [address] 453715 Physician Metal Drill Press Operator Urology 09/16/23 documented as of this encounter
--- OUTSIDE RECORDS SUMMARY | 2024-04-29 02:24 | XMS_ITS | Encounter Summary ---
Author Organization [place] Address [address] [place] [address] Care Team Providers Care Recreational Resort Manager Name Role Phone Carlos Joyner MD Unavailable [phone] Jadon Murray MD Unavailable [phone] Maru Villagomez RN Unavailable Unavailable Ang Slade MD Unavailable [phone] Carlos Joyner MD Unavailable [phone] Ang Slade MD Unavailable [phone] Lakshmi Wilhelm-C Unavailable [phone] Heladio Willoughby MD Primary Care Provider [phone] Heladio Willoughby MD Unavailable Alissa Perez PA-C Unavailable [phone] Lakshmi Wilhelm-C Unavailable [phone] Aidee Valero PA-C Unavailable [phone] Encounter Details Date Type Department Care Team (Late st Contact Info) Description 08/18/2023 [facility] [place] [facility] [address] [place] [address] Analisa Conner Social History Tobacco Use [...] st Contact Info) Description 04/29/2024 5:00 PM STRAIGHTEDGE WORKER Office Visit [facility] [address] [place] [address] Carlene Knight APRN [facility] [address] [place] [address] 06/15/2024 9:30 AM STRAIGHTEDGE WORKER Office Visit [address] [address] Xu Prince MD [address] [place] [address] 07/21/2024 4:00 PM STRAIGHTEDGE WORKER [facility] [address] [place] [phone] [place] [address] [address] [place] [address] documented as of this encounter Visit Diagnoses Not on filedocumented in this encounter Care Teams Recreational Resort Manager Relationship Specialty [place] [address] [address] [place] [address] PCP - General 03/05/23 Carlos Joyner MD [address] [place] [address] Urology 12/09/19 Jadon Murray MD [facility] 2530 [facility] 550 [place] [address] Referring Physician Pediatric Surgery 12/09/19 Maru Villagomez, OTILIO Registered Nurse 12/10/19 Ang Slade MD [address] 073465 Urology 04/24/20 Carlos Joyner MD [address] [place] [address] Assigned Surgical Provider 12/24/20 Ang Slade MD [address] [address] Urology 12/18/22 Lakshmi Wilhelm PA-C [address] [place] [address] 321895 Physician Tallier Urology 02/03/23 [place] [address] [place] [address] Assigned PCP 02/06/23 Alissa Perez PA-C [address] [place] [address] 982595 Physician Tallier Surgery 09/04/23 Lakshmi Wilhelm PA-C [address] [place] [address] 429785 Physician Tallier Urology 09/16/23 Aidee Valero PA-C [address] [place] [address] 406565 Assigned Musculoskeletal Provider 04/17/24 Tanisha Marlow 4120 [facility] [address] 03/30/24 documented as of this encounter
--- OUTSIDE RECORDS SUMMARY | 2024-04-29 02:24 | XMS_ITS | Encounter Summary ---
Author Organization [place] Address [address] [place] [address] Care Team Providers Care Sr. Manager Name Role Phone Carlos Joyner MD Unavailable [phone] Jadon Murray MD Unavailable [phone] Maru Villagomez RN Unavailable Unavailable Ang Slade MD Unavailable [phone] Carlos Joyner MD Unavailable +[phone] Ang Slade MD Unavailable [phone] Lakshmi Wilhelm-C Unavailable [phone] Heladio Willoughby MD Primary Care Provider [phone] Heladio Willoughby MD Unavailable Alissa Perez PA-C Unavailable [phone] Lakshmi Wilhelm-C Unavailable [phone] Aidee Valero PA-C Unavailable [phone] Encounter Details Date Type Department Care Team (Late st Contact Info) Description 07/01/2023 [facility] [place] [facility] [id number] [place] [address] Joao Arceo MA Social History Tobacco [...] st Contact Info) Description 04/29/2024 5:00 PM [employer] [place] Office Visit [facility] [address] [place] [address] Carlene Knight APRN [facility] [address] [place], [place] 2143368 06/15/2024 9:30 AM [employer] [place] Office Visit [address] [place] [address] Xu Prince MD [address] [address] 07/21/2024 4:00 PM [employer] [place] Office Visit [facility] [address] [place] [phone] [place] [address] [address] [place] [phone] documented as of this encounter Visit Diagnoses Not on filedocumented in this encounter Care Teams Sr. Manager Relationship Specialty [place] [address] [address] [phone] PCP - General 03/05/23 Carlos Joyner MD [address] [place] [address] Urology 12/09/19 Jadon Murray MD [facility] [address] [facility] 550 [place] [address] Referring Physician Pediatric Surgery 12/09/19 Maru Villagomez, OTILIO Registered Nurse 12/10/19 Ang Slade MD [address] [place] [address] Urology 04/24/20 Carlos Joyner MD [address] [place] [address] Assigned Surgical Provider 12/24/20 Ang Slade MD [address] [address] Urology 12/18/22 Lakshmi Wilhelm PA-C [address] [place] [address] Physician Conference Coordinator Urology 02/03/23 [place] [address] [place] [address] Assigned PCP 02/06/23 Alissa Perez PA-C [address] [place] [address] Physician Conference Coordinator Surgery 09/04/23 Lakshmi Wilhelm PA-C [address] [place] [address] Physician Conference Coordinator Urology 09/16/23 Aidee Valero PA-C [address] [place] [address] 320[address] Assigned Musculoskeletal Provider 04/17/24 Tanisha Marlow 4120 [facility] [address] 03/30/24 documented as of this encounter
--- OUTSIDE RECORDS SUMMARY | 2024-04-29 02:24 | XMS_ITS | Encounter Summary ---
Author Organization [facility] Address [address] [place] [address] Care Team Providers Care Musical Engineer Name Role Phone Carlos Joyner MD Unavailable [phone] Jadon Murray MD Unavailable Maru Villagomez RN Unavailable Unavailable Ang Slade MD Unavailable [phone] Carlos Joyner MD Unavailable [phone] Ang Slade MD Unavailable [phone] Lakshmi Wilhelm-C Unavailable Heladio Willoughby MD Primary Care Provider Heladio Willoughby MD Unavailable Alissa Perez PA-C Unavailable [phone] Lakshmi Wilhelm-C Unavailable [phone] Encounter Details Date Type Department Care Team (Late st Contact Info) Description 03/02/2024 [facility] [address] [place] [address] Carlos Joyner MD [address] [place] [address] Kidney stone (Primary Dx) Social History Tobacco [...] st Contact Info) Description 04/29/2024 5:00 PM BUSINESS DEVELOPMENT ASSOCIATE Office Visit [facility] [address] [place] [address] Carlene Knight APRN POLICE COMMISSIONER [address] [place], [place] 9640168 06/15/2024 9:30 AM BUSINESS DEVELOPMENT ASSOCIATE Office Visit [address] [place] [address] Xu Prince MD [address] [place] [address] 07/21/2024 4:00 PM BUSINESS DEVELOPMENT ASSOCIATE Office Visit [facility] [address] [place] [address] [place] [address] [place] [address] documented as of this encounter Results * (ABNORMAL) UA with Microscopic (03/05/2024 7:30 AM CDT) Color Urine Yellow Colorless, Straw, Light Yellow, Yellow 03/05/2024 9:06 AM CDT [facility] Appearance Urine Slightly Cloudy(A) Clear 03/05/2024 9:06 AM CDT [facility] Glucose Urine Negative Negative mg/dL 03/05/2024 9:06 AM CDT [facility] Bilirubin Urine Negative Negative 9:06 AM CDT [facility] Ketones Urine Negative Negative mg/dL 03/05/2024 9:06 AM CDT [facility] Specific [place] Urine 1.025 1.003 - 1.035 03/05/2024 9:06 AM CDT [facility] Blood Urine Negative Negative 03/05/2024 9:06 AM CDT [facility] pH Urine 7.0 5.0 - 7.0 03/05/2024 9:06 AM CDT [facility] Protein Albumin Urine Trace(A) Negative mg/dL 03/05/2024 9:06 AM CDT LABORATORY Urobilinogen Urine 0.2 0.2, 1.0 E.U./dL 03/05/2024 9:06 AM CDT [facility] Nitrite Urine Positive(A) Negative 03/05/2024 9:06 AM CDT [facility] Leukocyte Esterase Urine Moderate(A) Negative 03/05/2024 9:06 AM CDT [facility] Urine URINE SPECIMEN FROM URINARY CONDUIT / Unknown Non-blood Collection / Unknown 03/05/2024 7:30 AM CDT 03/05/2024 8:59 AM CDT Carlos Joyner MD LAB - URINE ORDERABLES Fin al Result [facility] [address] [facility] Lab (no room number, 1st floor of clinic) [place] [address], [facility] * (ABNORMAL) Urine Culture (03/05/2024 7:30 AM [...] coli Cefazolin LINDA <=4 ug/mL: Susceptible Comment:Cefazolin NM C breakpoints are for the treatment of [...] Enterococcus faecalis Nitrofurantoin LINDA <=16 ug/mL: Susceptible us Carlos Joyner MD LAB - MICRO GENERAL ORDERA BLES Final Result [facility] Inf. Diseases Diag. Lab 500 [facility], [address] [place] [phone] documented in this encounter Visit Diagnoses Diagnosis Kidney stone- Primary Calculus of kidney documented in this encounter Care Teams Musical Engineer Relationship Specialty Start [place] [address] [place] [address] PCP - General 03/05/23 Carlos Joyner MD [address] [place] [address] Urology 12/09/19 Jadon Murray MD [facility] [address] [id number] Referring Physician Pediatric Surgery 12/09/19 Maru Villagomez, RN Registered Nurse 12/10/19 Ang Slade MD [address] [place] [address] Urology 04/24/20 Carlos Joyner MD [address] [place] [address] 370945 Assigned Surgical Provider 12/24/20 Ang Slade MD [address] [place] [address] 735125 Urology 12/18/22 Lakshmi Wilhelm PA-C [address] [place] [address] 140625 Physician Tube Coremaker Urology 02/03/23 [place] [address] [place] [address] Assigned PCP 02/06/23 Alissa Perez PA-C [address] [place] [address] Physician Tube Coremaker Surgery 09/04/23 Lakshmi Wilhelm PA-C [address] [place] [address] 477125 Physician Tube Coremaker Urology 09/16/23 documented as of this encounter
--- OUTSIDE RECORDS SUMMARY | 2024-04-29 02:24 | XMS_ITS | Encounter Summary ---
Author Organization [facility] Address [address] [place] [address]. [place] [address] Care Team Providers Care Evaporator Helper Name Role Phone Carlos Joyner MD Unavailable [phone] Jadon Murray MD Unavailable [phone] Maru Villagomez RN Unavailable Unavailable Ang Slade MD Unavailable [phone] Carlos Joyner MD Unavailable [phone] Ang Slade MD Unavailable [phone] Lakshmi Wilhelm PA-C Unavailable [phone] Heladio Willoughby MD Primary Care Provider [phone] Heladio Willoughby MD Unavailable Alissa Perez PA-C Unavailable [phone] Lakshmi Wilhelm PA-C Unavailable [phone] Aidee Valero PA-C Unavailable [phone] Encounter Details Date Type Department Care Team (Late st Contact Info) Description 04/08/2023 [facility] Medical Advice [facility] Clinic [address] 4th [place] [address] Rosita Velasco, RN Social History [...] in an overnight intermediate, or couch-surfing.) Yes 04/11/2023 Are you worried [...] getting things that you need? Yes 04/11/2023 Comments No Sex and Gender Information Value Date Recorded Sex Assigned at Not on file Legal Sex Female 3:09 PM CDT Gender Identity Not on file Sexual Orientation Not on file documented as of this encounter Plan of Treatment Upcoming Encounters Date Type Department Care Team (Late st Contact Info) Description 04/29/2024 5:00 PM SPUD DRILLER Office Visit [facility] [address] [place] [phone] Carlene Knight APRN [facility] [address] [place], [place] 1181068 06/15/2024 9:30 AM SPUD DRILLER Office Visit [place] [address] [place] [address] Xu Prince MD [address] [address] 07/21/2024 4:00 PM SPUD DRILLER Office Visit [facility] [place] [address] [address] [phone] [place] [address] [address] [phone] documented as of this encounter Visit Diagnoses Not on filedocumented in this encounter Care Teams Evaporator Helper Relationship Specialty [place] [address] [address] [phone] PCP - General 03/05/23 Carlos Joyner MD [address] [place] [address] Urology 12/09/19 Jadon Murray MD [facility] 2530 [facility] 550 [place] [address] Referring Physician Pediatric Surgery 12/09/19 Maru Villagomez, OTILIO Registered Nurse 12/10/19 Ang Slade MD [address] [place] [address] Urology 04/24/20 Carlos Joyner MD [address] [place] [address] Assigned Surgical Provider 12/24/20 Ang Slade MD [address] [address] Urology 12/18/22 Lakshmi Wilhelm PA-C [address] [place] [address]227 Physician Learning Services Coordinator Urology 02/03/23 [place] [address] [facility] [place] [address] Assigned PCP 02/06/23 Alissa Perez PA-C [address] [place] [address] Physician Learning Services Coordinator Surgery 09/04/23 Lakshmi Wilhelm PA-C [address] [place] [address] Physician Learning Services Coordinator Urology 09/16/23 Aidee Valero PA-C [address] [place] [address] Assigned Musculoskeletal Provider 04/17/24 Tanisha Marlow 4120 [facility] [address] 03/30/24 documented as of this encounter
--- OUTSIDE RECORDS SUMMARY | 2024-04-29 02:24 | XMS_ITS | Encounter Summary ---
Author Organization [facility] Address [address] [place] [address] Care Team Providers Care Clinical Program Consultant Name Role Phone Carlos Joyner MD Unavailable [phone] Jadon Murray MD Unavailable [phone] Maru Villagomez RN Unavailable Unavailable Ang Slade MD Unavailable [phone] Carlos Joyner MD Unavailable [phone] Ang Slade MD Unavailable [phone] Lakshmi Wilhelm PA-C Unavailable [phone] Heladio Willoughby MD Primary Care Provider [phone] Heladio Willoughby MD Unavailable Alissa Perez PA-C Unavailable [phone] Lakshmi Wilhelm PA-C Unavailable [phone] Aidee Valero PA-C Unavailable [phone] Encounter Details Date Type Department Care Team (Late st Contact Info) Description 02/13/2024 [facility] Urology Clinic [address] [place] [address] Carlos Joyner MD [address] [place] [address] Social History Tobacco Use Types Packs/Day [...] in an abandoned building, in an overnight nursing home, or couch-surfing.) Yes 04/16/2023 Are you [...] st Contact Info) Description 04/29/2024 5:00 PM SOLDERER DIPPER Office Visit [facility] [address] [place] [address] Carlene Knight APRN FACULTY RESEARCH PHYSICIAN [address] [place], [place] [phone] 06/15/2024 9:30 AM SOLDERER DIPPER Office Visit [facility] [place] [address] [place] [address] Xu Prince MD 606 24[facility] 106 [place] [address] 07/21/2024 4:00 PM SOLDERER DIPPER Office Visit [facility] [address] [place] [address] [place] [address] [address] [place], [place] [phone] documented as of this encounter Visit Diagnoses Not on filedocumented in this encounter Care Teams Clinical Program Consultant Relationship Specialty Start [place] [address] [place] [address] PCP - General 03/05/23 Carlos Joyner MD [address] [place] [address] 398965 Urology 12/09/19 Jadon Murray MD [facility] [address] [facility] 550 [place] [address] Referring Physician Pediatric Surgery 12/09/19 Maru Villagomez RN Registered Nurse 12/10/19 Ang Slade MD [address] [place] [address] Urology 04/24/20 Carlos Joyner MD [address] [place] [address] 926385 Assigned Surgical Provider 12/24/20 Ang Slade MD [address] [place] [address] 0[address] Urology 12/18/22 Lakshmi Wilhelm PA-C [address] [place] [address] 936195 Physician Knifeman Urology 02/03/23 [place] [address] [facility] [place] [address] Assigned PCP 02/06/23 Alissa Perez PA-C [address] [place] [address] 804725 Physician Knifeman Surgery 09/04/23 Lakshmi Wilhelm PA-C [address] [place] [address] Physician Knifeman Urology 09/16/23 Aidee Valero PA-C [address] [place] [address] 372505 Assigned Musculoskeletal Provider 04/17/24 Tanisha Marlow 4120 [facility] [address] 03/30/24 documented as of this encounter
--- OUTSIDE RECORDS SUMMARY | 2024-04-29 02:24 | XMS_ITS | Encounter Summary ---
Author Organization [facility] Address [address] [place] [address] Care Team Providers Care Community Services Manager Name Role Phone Carlos Joyner MD Unavailable [phone] Jadon Murray MD Unavailable [phone] Maru Villagomez RN Unavailable Unavailable Ang Slade MD Unavailable [phone] Carlos Joyner MD Unavailable [phone] Ang Slade MD Unavailable [phone] Lakshmi Wilhelm PA-C Unavailable [phone] Heladio Willoughby MD Primary Care Provider [phone] Heladio Willoughby MD Unavailable Alissa Perez PA-C Unavailable [phone] Lakshmi Wilhelm PA-C Unavailable [phone] Aidee Valero PA-C Unavailable [phone] Encounter Details Date Type Department Care Team (Late st Contact Info) Description 09/18/2023 [facility] [address] [place] [address] Carlos Joyner MD [address] [place] [address] Social History Tobacco Use Types Packs/Day [...] st Contact Info) Description 04/29/2024 5:00 PM SOCIAL INSURANCE SPECIALIST Office Visit [facility] [address] [place] [address] Carlene Knight APRN CLOTH COVERED HELMET PULLER [address] [place], [place] 9240168 06/15/2024 9:30 AM SOCIAL INSURANCE SPECIALIST Office Visit [facility] [place] [address] [place] [address] Xu Prince MD 606 24[facility] 106 [place] [address] 07/21/2024 4:00 PM SOCIAL INSURANCE SPECIALIST Office Visit [facility] [address] [place] [address] [place] [address] [place], [place] 4068868 documented as of this encounter Visit Diagnoses Not on filedocumented in this encounter Care Teams Community Services Manager Relationship Specialty [place] [address] [place] [address] PCP - General 03/05/23 Carlos Joyner MD [address] [place] [address] 610555 Urology 12/09/19 Jadon Murray MD [facility] 2530 [facility] 550 [place] [address] Referring Physician Pediatric Surgery 12/09/19 Maru Villagomez RN Registered Nurse 12/10/19 Ang Slade MD [address] [place] [address] Urology 04/24/20 Carlos Joyner MD [address] [place] [address] 299235 Assigned Surgical Provider 12/24/20 Ang Slade MD [address] [place] [address] Urology 12/18/22 Lakshmi Wilhelm PA-C [address] [place] [address] 877245 Physician Vulcanized Fiber Unit Operator Urology 02/03/23 [place] [address] [facility] [place] [address] Assigned PCP 02/06/23 Alissa Perez PA-C [address] [place] [address] 818735 Physician Vulcanized Fiber Unit Operator Surgery 09/04/23 Lakshmi Wilhelm PA-C [address] [place] [address] Physician Vulcanized Fiber Unit Operator Urology 09/16/23 Aidee Valero PA-C [address] [place] [address] 921315 Assigned Musculoskeletal Provider 04/17/24 Tanisha Marlow 4120 [facility] [address] 03/30/24 documented as of this encounter
--- OUTSIDE RECORDS SUMMARY | 2024-04-29 02:24 | XMS_ITS | Encounter Summary ---
Author Organization [facility] Address [address] [place] [address]. [place] [address] Care Team Providers Care Back Facer Name Role Phone Carlos Joyner MD Unavailable [phone] Jadon Murray MD Unavailable [phone] Maru Villagomez RN Unavailable Unavailable Ang Slade MD Unavailable [phone] Carlos Joyner MD Unavailable [phone] Ang Slade MD Unavailable [phone] Lakshmi Wilhelm-C Unavailable [phone] Heladio Willoughby MD Primary Care Provider [phone] Heladio Willoughby MD Unavailable Alissa Perez PA-C Unavailable [phone] Lakshmi Wilhelm-C Unavailable [phone] Aidee Valero PA-C Unavailable [phone] Reason for Visit * Reason Onset Date Comments Forms 02/06/2024 [facility] ecial Education [employer] - Medication Authorization Form Encounter Details Date Type Department Care Team (Late st Contact Info) Description 02/06/2024 [facility] [address] [place] [address] [place] [address] [place] [address] Forms ([facility] Education Veneer Lathe Operator... Social History Tobacco Use Types Packs/Day Years [...] * Telephone Encounter - Kasia Gutierrez - 02/06/2024 1:08 PM CDT Forms/Letter Request Type of form/letter: School Do we have the form/letter: Yes: Medication Authorization Form Who is the form from? [facility] [facility] (if other please explain) Where did/will the form come from? form was sent via [employer] When is form/letter needed by: [facility] How would you like the form/letter returned: [employer] Printed forms and placed in provider's basket for review and signature Kasia Gutierrez Lead Chemical Research Technician [facility] documented in this encounter Plan of Treatment Upcoming Encounters Date Type Department Care Team (Late st Contact Info) Description 04/29/2024 5:00 PM STUDENT FINANCE SPECIALIST [facility] [address] [place] [address] Carlene Knight APRN CCTV TECHNICIAN [address] [place], [place] [phone] 06/15/2024 9:30 AM STUDENT FINANCE SPECIALIST Office Visit [facility] [address] [place] [phone] Xu Prince MD [address] [place], [place] [address]E [facility] 106 [place], [place] 400244 07/21/2024 4:00 PM STUDENT FINANCE SPECIALIST [facility] [address] [place] [address] [place] [address] [place], [place] [address] documented as of this encounter Visit Diagnoses Not on filedocumented in this encounter Care Teams Back Facer Relationship Specialty Start [place] [address] [place], [place] [phone] PCP - General 03/05/23 Carlos Joyner MD 909 [place], [place] 902375 Urology 12/09/19 Jadon Murray MD [facility] 2530 [facility] 550 [place] [address] Referring Physician Pediatric Surgery 12/09/19 Maru Villagomez, RN Registered Nurse 12/10/19 Ang Slade MD 420 [facility] 394 [place] [address] MD Urology 04/24/20 Carlos Joyner MD [address] [place] [address] 644705 Assigned Surgical Provider 12/24/20 Ang Slade MD [address] [place] [address] Urology 12/18/22 Lakshmi Wilhelm PA-C [address] [place] [address] Physician Commercial Loan Underwriter Urology 02/03/23 [place] [address] [place] [address] Assigned PCP 02/06/23 Alissa Perez PA-C [address] [place] [address] 757605 Physician Commercial Loan Underwriter Surgery 09/04/23 Lakshmi Wilhelm PA-C [address] [place] [address] 148905 Physician Commercial Loan Underwriter Urology 09/16/23 Aidee Valero PA-C [address] [place] [address] 187595 Assigned Musculoskeletal Provider 04/17/24 Tanisha Marlow [address] [facility] [place] [address] 03/30/24 documented as of this encounter
--- OUTSIDE RECORDS SUMMARY | 2024-04-29 02:25 | XMS_ITS | Encounter Summary ---
Author Organization [facility] [facility] Address [address] [place] [address] Care Team Providers Care Child Protection Specialist Name Role Phone Carlos Joyner MD Unavailable [phone] Jadon Murray MD Unavailable [phone] Maru Villagomez RN Unavailable Unavailable Ignacia Duran MD Primary Care Provider Ang Slade MD Unavailable Carlos Joyner MD Unavailable [phone] Annalise Orta PA-C Unavailable Ang Slade MD Unavailable Lakshmi Wilhelm-C Unavailable Heladio Willoughby MD Primary Care Provider Heladio Willoughby MD Unavailable Alissa Perez PA-C Unavailable [phone] Lakshmi Wilhelm PA-C Unavailable Aidee Valero PA-C Unavailable Encounter Details Date Type Department Care Team (Late st Contact Info) Description 09/17/2021 [facility] [address] [place] [address] Carlos Joyner MD [address] [place] [address] Social History Tobacco Use Types Packs/Day Years Used Date Smoking Tobacco: Never Smokeless Tobacco: Never Alcohol Use Standard Drinks/Week Comments Not Currently 0 (1 standard drink = 0.6 oz pur e alcohol) PHQ-2 Answer Date Recorded PHQ-2 Score 0 05/03/2021 Comments No Sex and Gender Information Value [...] st Contact Info) Description 04/29/2024 5:00 PM WASTE ELIMINATION [facility] [address] [place] [address] Carlene Knight APRN MAMMOGRAPHY TECH [address] [place], [place] 5153068 06/15/2024 9:30 AM WASTE ELIMINATION Office Visit [facility] [place] [address] [place] [phone] Xu Prince MD [address] [place] [address] 07/21/2024 4:00 PM WASTE ELIMINATION [facility] [address] [place] [address] [place] [address] [place] [address] documented as of this encounter Visit Diagnoses Not on filedocumented in this encounter Additional Health Concerns Infection Onset Date Last Indicated Resolved Time MRSA Comment:Added from external infection. Pt has had Staph infections but never MRSA from Care everywhere chart review. Removing MRSA 9.14.23 06/17/2019 02/06/2023 9:41 AM C DT documented as of this encounter Care Teams Child Protection Specialist Relationship Specialty Start Date End Date Ignacia Duran MD PCP - General Pediatrics 01/20/20 03/04/23 [place] [address] [place] [address] PCP - General 03/05/23 Carlos Joyner MD [address] [place] [address] Urology 12/09/19 Jadon Murray MD [facility] [address] [address] Referring Physician Pediatric Surgery 12/09/19 Maru Villagomez, OTILIO Registered Nurse 12/10/19 Ang Slade MD [address] [place] [address] Urology 04/24/20 Carlos Joyner MD [address] [place] [address]77 Assigned Surgical Provider 12/24/20 Annalise Orta PA-C 5200 [place] [address] Assigned Cancer Care Provider 05/13/21 11/01/22 Ang Slade MD [address] [address] Urology 12/18/22 Lakshmi Wilhelm PA-C [address] [place] [address] 9[address] Physician Gas Leak Inspector Urology 02/03/23 [place] [address] [place] [address] Assigned PCP 02/06/23 Alissa Perez PA-C [address] [place] [address] Physician Gas Leak Inspector Surgery 09/04/23 Lakshmi Wilhelm PA-C [address] [place] [address] Physician Gas Leak Inspector Urology 09/16/23 Aidee Valero PA-C [address] [place] [address] Assigned Musculoskeletal Provider 04/17/24 Tanisha Marlow 4120 [facility] [address] 03/30/24 documented as of this encounter
--- OUTSIDE RECORDS SUMMARY | 2024-04-29 02:25 | XMS_ITS | Encounter Summary ---
Author Organization [place] Address [address] [place] [address] Care Team Providers Care Tack Cutter Name Role Phone Carlos Joyner MD Unavailable +[phone] Jadon Murray MD Unavailable +[phone] Maru Villagomez RN Unavailable Unavailable Ignacia Duran MD Primary Care Provider Ang Slade MD Unavailable +[phone] Carlos Joyner MD Unavailable +[phone] Annalise Orta PA-C Unavailable +[phone] Ang Slade MD Unavailable +[phone] Lakshmi Wilhelm PA-C Unavailable +[phone] Heladio Willoughby MD Primary Care Provider [phone] Heladio Willoughby MD Unavailable Alissa Perez PA-C Unavailable [phone] Lakshmi Wilhelm PA-C Unavailable +[phone] Aidee Valero PA-C Unavailable +[phone] Encounter Details Date Type Department Care Team (Late st Contact Info) Description 07/19/2021 [facility] [place] [id number] [facility] 4th [place] [address] Shyann Rehman Social History Tobacco [...] COVID-19? No / Unsure 06/19/2021 11:16 AM SENIOR SOURCING MANAGER documented as of this encounter Plan of Treatment Upcoming Encounters Date Type Department Care Team (Late st Contact Info) Description 04/29/2024 5:00 PM SENIOR SOURCING MANAGER [facility] [address] [place] [address] Carlene Knight APRN FIREBRICK LAYER [address] [place], [place] [phone] 06/15/2024 9:30 AM SENIOR SOURCING MANAGER Office Visit [address] [phone] Xu Prince MD [address] [place] [address] 07/21/2024 4:00 PM SENIOR SOURCING MANAGER [facility] [address] [place] [address] [place] [address] [facility], [place] 8502768 documented as of this encounter Visit Diagnoses Not on filedocumented in this encounter Additional Health Concerns Infection Onset Date Last Indicated Resolved Time MRSA Comment:Added from external infection. Pt has had Staph infections but never MRSA from Care everywhere chart review. Removing MRSA .14.06/17/2019 02/06/2023 9:41 AM C DT documented as of this encounter Care Teams Tack Cutter Relationship Specialty Start Date End Date Ignacia Duran MD PCP - General Pediatrics 01/20/20 03/04/23 [place] [address] [facility] [place] [address] PCP - General 03/05/23 Carlos Joyner MD [address] [place] [address] Urology 12/09/19 Jadon Murray MD [facility] [address] [id number] Referring Physician Pediatric Surgery 12/09/19 Maru Villagomez, OTILIO Registered Nurse 12/10/19 Ang Slade MD [address] [place] [address] 9[address] Urology 04/24/20 Carlos Joyner MD [address] [place] [address] 987[address] Assigned Surgical Provider 12/24/20 Annalise Orta PA-C 5200 [place] [address] Assigned Cancer Care Provider 05/13/21 11/01/22 Ang Slade MD [address] [place] [address] 598195 Urology 12/18/22 Lakshmi Wilhelm PA-C [address] [place] [address] 957165 Physician Wholesale Buyer Urology 02/03/23 [place] [address] [place] [address] Assigned PCP 02/06/23 Alissa Perez PA-C [address] [place] [address] 026495 Physician Wholesale Buyer Surgery 09/04/23 Lakshmi Wilhelm PA-C [address] [place] [address] 915085 Physician Wholesale Buyer Urology 09/16/23 Aidee Valero PA-C 909 [place], [place] 520515 Assigned Musculoskeletal Provider 04/17/24 Tanisha Marlow 4120 [facility] [address] 03/30/24 documented as of this encounter
--- OUTSIDE RECORDS SUMMARY | 2024-04-29 02:25 | XMS_ITS | Encounter Summary ---
Author Organization [place] Address [address] [place] [address] 9[address] Care Team Providers Care Supply Aide Name Role Phone Carlos Joyner MD Unavailable [phone] Jadon Murray MD Unavailable +[phone] Maru Villagomez RN Unavailable Unavailable Ignacia Duran MD Primary Care Provider Ang Slade MD Unavailable +[phone] Carlos Joyner MD Unavailable +[phone] Annalise Orta PA-C Unavailable +[phone] Ang Slade MD Unavailable Lakshmi Wilhelm-C Unavailable +[phone] Heladio Willoughby MD Primary Care Provider Heladio Willoughby MD Unavailable Alissa Perez PA-C Unavailable [phone] Lakshmi Wilhelm-C Unavailable [phone] Aidee Valero PA-C Unavailable +[phone] Reason for Visit * Reason Onset Date Comments Patient/info Update 02/26/2021 pt currently intubated, will nto be able to have uro surgery Encounter Details Date Type Department Care Team ([facility] Contact Info) Description 02/26/2021 [facility] [address] [place] [address] Carlos Joyner MD 909 [place] [address] Patient/info Update (pt currently intubated, will nto be able to have uro surgery) Social History Tobacco Use Types Packs/Day Years Used Date Smoking Tobacco: Never Smokeless Tobacco: Never PHQ-2 Answer Date Recorded PHQ-2 Score 0 12/13/2019 Comments No Sex and Gender Information Value [...] Lakshmi Chowdhury - 02/26/2021 2:07 PM CDT [facility] Phone Message May a detailed message be left on voicemail: yes Reason for Call: Other: Edith called in wanting to let Dr. Joyner and his team know that [facility] date [facility]09[facility]21. Please call back if thereare any questions at [phone] Action Taken: Message routed to: [facility] uro Travel Screening: Not Applicable documented in this encounter Plan of Treatment Upcoming Encounters Date Type Department Care Team (Late st Contact Info) Description 04/29/2024 5:00 PM GREENHOUSE WORKER Office Visit [facility] [address] [place] [address] Carlene Knight APRN LINE DANCER [address] [place] [address] 06/15/2024 9:30 AM GREENHOUSE WORKER Office Visit [facility] [address] [address] Xu Prince MD [address] [place] [address] 637174 07/21/2024 4:00 PM GREENHOUSE WORKER [facility] [address] [place] [address] [place] [address] [place], [place] 9793968 documented as of this encounter Visit Diagnoses Not on filedocumented in this encounter Additional Health Concerns Infection Onset Date Last Indicated Resolved Time MRSA Comment:Added from external infection. Pt has had Staph infections but never MRSA from Care everywhere chart review. Removing MRSA 1406/17/2019 02/06/2023 9:41 AM CDT documented as of this encounter Care Teams Supply Aide Relationship Specialty Start Date End Date Ignacia Duran MD PCP - General Pediatrics 01/20/20 03/04/23 [place] [address] [place], [place] [phone] PCP - General 03/05/23 Carlos Joyner MD [address] [place] [address] Urology 12/09/19 Jadon Murray MD [facility] [address] [address] Referring Physician Pediatric Surgery 12/09/19 Maru Villagomez, OTILIO Registered Nurse 12/10/19 Ang Slade MD [address] [place] [address] Urology 04/24/20 Carlos Joyner MD [address] [place] [address]30[address] Assigned Surgical Provider 12/24/20 Annalise Orta PA-C 5200 [place] [address] Assigned Cancer Care Provider 05/13/21 11/01/22 Ang Slade MD [address] [place] [address]39[address] Urology 12/18/22 Lakshmi Wilhelm PA-C [address] [place] [address] Physician Ratings Analyst Urology 02/03/23 [place] [address] [place] [address] Assigned PCP 02/06/23 Alissa Perez PA-C [address] [place] [address]642 Physician Ratings Analyst Surgery 09/04/23 Lakshmi Wilhelm PA-C [address] [place] [address] Physician Ratings Analyst Urology 09/16/23 Aidee Valero PA-C [address] [place] [address] 836935 Assigned Musculoskeletal Provider 04/17/24 Tanisha Marlow 4120 [facility] [address] 03/30/24 documented as of this encounter
--- OUTSIDE RECORDS SUMMARY | 2024-04-29 02:25 | XMS_ITS | Encounter Summary ---
Author Organization [place] Address [address] [place] [address] Care Team Providers Care Health Service Worker Name Role Phone Carlos Joyner MD Unavailable +[phone] Jadon Murray MD Unavailable +[phone] Maru Villagomez RN Unavailable Unavailable Ignacia Duran MD Primary Care Provider Ang Slade MD Unavailable +[phone] Carlos Joyner MD Unavailable +[phone] Annalise Orta PA-C Unavailable +[phone] Ang Slade MD Unavailable +[phone] Lakshmi Wilhelm-C Unavailable [phone] Heladio Willoughby MD Primary Care Provider [phone] Heladio Willoughby MD Unavailable Alissa Perez PA-C Unavailable [phone] Lakshmi Wilhelm PA-C Unavailable [phone] Aidee Valero PA-C Unavailable +[phone] Encounter Details Date Type Department Care Team (Late st Contact Info) Description 04/16/2021 [facility] [address] [place] [address] Berna Britton Social History Tobacco Use [...] st Contact Info) Description 04/29/2024 5:00 PM POLISH COMPOUNDER Office Visit [facility] [address] [place] [phone] Carlene Knight APRN SOCIAL MEDIA CAMPAIGN MANAGER [address] [place], [place] [phone] 06/15/2024 9:30 AM POLISH COMPOUNDER Office Visit [facility] [address] [place] [phone] Xu Prince MD 606 [facility] [address] [address] 07/21/2024 4:00 PM POLISH COMPOUNDER Office Visit [facility] [address] [place] [address] [place] [address] [place], [place] 1338168 documented as of this encounter Visit Diagnoses Not on filedocumented in this encounter Additional Health Concerns Infection Onset Date Last Indicated Resolved Time MRSA Comment:Added from external infection. Pt has had Staph infections but never MRSA from Care everywhere chart review. Removing MRSA 9.14.06/17/2019 02/06/2023 9:41 AM C DT documented as of this encounter Care Teams Health Service Worker Relationship Specialty Start Date End Date Ignacia Duran MD PCP - General Pediatrics 01/20/20 03/04/23 [place] [address] [facility] [place] [address] PCP - General 03/05/23 Carlos Joyner MD [address] [place] [address] Urology 12/09/19 Jadon Murray MD [facility] 2530 [facility] [address] [address] Referring Physician Pediatric Surgery 12/09/19 Maru Villagomez, RN Registered Nurse 12/10/19 Ang Slade MD [address] [place] [address] Urology 04/24/20 Carlos Joyner MD [address] [place] [address] Assigned Surgical Provider 12/24/20 Annalise Orta PA-C 5200 [place] [address] Assigned Cancer Care Provider 05/13/21 11/01/22 Ang Slade MD [address] [place] [address] Urology 12/18/22 Lakshmi Wilhelm PA-C [address] [place] [address] Physician Trial Attorney Urology 02/03/23 [place] [address] [facility] [place] [address] Assigned PCP 02/06/23 Alissa Perez PA-C [address] [place] [address] Physician Trial Attorney Surgery 09/04/23 Lakshmi Wilhelm PA-C [address] [place] [address] 069455 Physician Trial Attorney Urology 09/16/23 Aidee Valero PA-C [address] [place] [address] 651925 Assigned Musculoskeletal Provider 04/17/24 Tanisha Marlow 4120 [facility] [address] 03/30/24 documented as of this encounter
--- OUTSIDE RECORDS SUMMARY | 2024-04-29 02:25 | XMS_ITS | Encounter Summary ---
Author Organization [place] Address [address] [place] [address] Care Team Providers Care Mems Process Engineer Name Role Phone Carlos Joyner MD Unavailable [phone] Jadon Murray MD Unavailable + [phone] Maru Villagomez RN Unavailable Unavailable Ignacia Duran MD Primary Care Provider [phone] Ang Slade MD Unavailable [phone] Carlos Joyner MD Unavailable [phone] Ang Slade MD Unavailable [phone] Lakshmi Wilhelm-C Unavailable [phone] Heladio Willoughby MD Primary Care Provider Heladio Willoughby MD Unavailable Alissa Perez PA-C Unavailable [phone] Lakshmi Wilhelm-C Unavailable [phone] Aidee Valero PA-C Unavailable +[phone] Encounter Details Date Type Department Care Team (Late st Contact Info) Description 01/06/2023 [facility] [address] [address] Lisette Mariee Social History Tobacco Use [...] st Contact Info) Description 04/29/2024 5:00 PM MANAGER CITY [facility] [address] [place] [address] Carlene Knight APRN RETAIL SALES TEAMMATE [address] [place], [place] [phone] 06/15/2024 9:30 AM MANAGER CITY Office Visit [address] [phone] Xu Prince MD [address] [place] [address] 07/21/2024 4:00 PM MANAGER CITY [facility] [address] [place] [address] [place] [address] [place], [place] [phone] documented as of this encounter Visit Diagnoses Not on filedocumented in this encounter Additional Health Concerns Infection Onset Date Last Indicated Resolved Time MRSA Comment:Added from external infection. Pt has had Staph infections but never MRSA from Care everywhere chart review. Removing MRSA 02.06.23 06/17/2019 02/06/2023 9:41 AM C DT documented as of this encounter Care Teams Mems Process Engineer Relationship Specialty Start Date End Date Ignacia Duran MD PCP - General Pediatrics 01/20/20 03/04/23 [place] [address] [place] [address] PCP - General 03/05/23 Carlos Joyner MD [address] [place] [address] Urology 12/09/19 Jadon Murray MD [facility] [address] [address] Referring Physician Pediatric Surgery 12/09/19 Maru Villagomez, OTILIO Registered Nurse 12/10/19 Ang Slade MD [address] [place] [address] Urology 04/24/20 Carlos Joyner MD [address] [place] [address] Assigned Surgical Provider 12/24/20 Ang Slade MD [address] [place] [address] Urology 12/18/22 Lakshmi Wilhelm PA-C [address] [place] [address] Physician Black Off Worker Urology 02/03/23 [place] [address] [place] [address] Assigned PCP 02/06/23 Alissa Perez PA-C [address] [place] [address] 896865 Physician Black Off Worker Surgery 09/04/23 Lakshmi Wilhelm PA-C [address] [place] [address] [phone] Physician Black Off Worker Urology 09/16/23 Aidee Valero PA-C [address] [place] [address] [phone] Assigned Musculoskeletal Provider 04/17/24 Tanisha Marlow 4120 [facility] [address] 03/30/24 documented as of this encounter
--- OUTSIDE RECORDS SUMMARY | 2024-04-29 02:25 | XMS_ITS | Encounter Summary ---
Author Organization [place] Address [address] [place] [address] Care Team Providers Care Terrazzo Mechanic Helper Name Role Phone Carlos Joyner MD Unavailable +[phone] Jadon Murray MD Unavailable +[phone] Maru Villagomez RN Unavailable Unavailable Ignacia Duran MD Primary Care Provider [phone] Ang Slade MD Unavailable +[phone] Carlos Joyner MD Unavailable +[phone] Annalise Orta PA-C Unavailable +[phone] Ang Slade MD Unavailable [phone] Lakshmi Wilhelm-C Unavailable [phone] Heladio Willoughby MD Primary Care Provider [phone] Heladio Willoughby MD Unavailable Alissa Perez PA-C Unavailable [phone] Lakshmi Wilhelm PA-C Unavailable [phone] Aidee Valero PA-C Unavailable +[phone] Encounter Details Date Type Department Care Team (Late st Contact Info) Description 11/14/2021 [facility] [address] [place] [address] Analisa Palacio, RN Social History Tobacco Use Types Packs/Day Years Used Date Smoking Tobacco: Never Smokeless Tobacco: Never Alcohol Use Standard Drinks/Week Comments Not Currently 0 (1 standard drink = 0.6 oz pur e alcohol) PHQ-2 Answer Date Recorded PHQ-2 Score 0 10/31/2021 Comments No Sex and Gender Information Value [...] st Contact Info) Description 04/29/2024 5:00 PM UNEMPLOYMENT CLAIMS ADJUDICATOR [facility] [address] [place] [address] Carlene Knight APRN CNP [address] [place] [address] 06/15/2024 9:30 AM UNEMPLOYMENT CLAIMS ADJUDICATOR Office Visit [address] [phone] Xu Prince MD [address] [place] [address] 348744 07/21/2024 4:00 PM UNEMPLOYMENT CLAIMS ADJUDICATOR [facility] [address] [place] [address] [place] [address] [place], [place] 8446968 documented as of this encounter Visit Diagnoses Not on filedocumented in this encounter Additional Health Concerns Infection Onset Date Last Indicated Resolved Time MRSA Comment:Added from external infection. Pt has had Staph infections but never MRSA from Care everywhere chart review. Removing MRSA 9.14.23 06/17/2019 02/06/2023 9:41 AM C DT documented as of this encounter Care Teams Terrazzo Mechanic Helper Relationship Specialty Start Date End Date Ignacia Duran MD PCP - General Pediatrics 01/20/20 03/04/23 [place] [address] [facility] [place] [address] PCP - General 03/05/23 Carlos Joyner MD 9 [place] [address] Urology 12/09/19 Jadon Murray MD [facility] [address] [address] Referring Physician Pediatric Surgery 12/09/19 Maru Villagomez, RN Registered Nurse 12/10/19 Ang Slade MD [address] 977545 Urology 04/24/20 Carlos Joyner MD [address] [place] [address] 459205 Assigned Surgical Provider 12/24/20 Annalise Orta PA-C 5200 [place] [address] Assigned Cancer Care Provider 05/13/21 11/01/22 Ang Slade MD [address] [address] Urology 12/18/22 Lakshmi Wilhelm PA-C [address] [place] [address] Physician Wood Shop Teacher Urology 02/03/23 [place] [address] [place] [address] Assigned PCP 02/06/23 Alissa Perez PA-C [address] [place] [address]80 Physician Wood Shop Teacher Surgery 09/04/23 Lakshmi Wilhelm PA-C [address] [place] [address] Physician Wood Shop Teacher Urology 09/16/23 Aidee Valero PA-C [address] [place] [address] Assigned Musculoskeletal Provider 04/17/24 Tanisha Marlow 4120 [facility] [address] 03/30/24 documented as of this encounter
--- OUTSIDE RECORDS SUMMARY | 2024-04-29 02:25 | XMS_ITS | Encounter Summary ---
Author Organization [place] Address [address] [place] [address] Care Team Providers Care Technical Delivery Manager Name Role Phone Carlos Joyner MD Unavailable +[phone] Jadon Murray MD Unavailable +[phone] Maru Villagomez RN Unavailable Unavailable Ignacia Duran MD Primary Care Provider Ang Slade MD Unavailable +[phone] Carlos Joyner MD Unavailable +[phone] Annalise Orta PA-C Unavailable +[phone] Ang Slade MD Unavailable [phone] Lakshmi Wilhelm-C Unavailable [phone] Heladio Willoughby MD Primary Care Provider [phone] Heladio Willoughby MD Unavailable Alissa Perez PA-C Unavailable [phone] Lakshmi Wilhelm PA-C Unavailable [phone] Aidee Valero PA-C Unavailable [phone] Encounter Details Date Type Department Care Team (Late st Contact Info) Description 10/02/2021 [facility] [address] [place] [address] Analisa Palacio, RN Social History [...] encounter Miscellaneous Notes * Telephone Encounter - Wallace Sarika - 10/03/2021 1:34 PM CDT documented in this encounter Plan of Treatment Upcoming Encounters Date Type Department Care Team (Late st Contact Info) Description 04/29/2024 5:00 PM HYDRAULICS ENGINEER [facility] [address] [place] [phone] Carlene Knight APRN THREAD MACHINE OPERATOR [address] [place], [place] 1162368 06/15/2024 9:30 AM HYDRAULICS ENGINEER Office Visit [facility] [address] [place] [phone] Xu Prince MD [address] [place] [address] 274234 07/21/2024 4:00 PM HYDRAULICS ENGINEER [facility] [address] [place] [phone] [place] [address] [place], [place] [phone] documented as of this encounter Visit Diagnoses Not on filedocumented in this encounter Additional Health Concerns Infection Onset Date Last Indicated Resolved Time MRSA Comment:Added from external infection. Pt has had Staph infections but never MRSA from Care everywhere chart review. Removing MRSA 9.14.23 06/17/2019 02/06/2023 9:41 AM C DT documented as of this encounter Care Teams Technical Delivery Manager Relationship Specialty Start Date End Date Ignacia Duran MD PCP - General Pediatrics 01/20/20 03/04/23 [place] [address] [place] [address] PCP - General 03/05/23 Carlos Joyner MD [address] [place] [address] Urology 12/09/19 Jadon Murray MD [facility] [address] [address] Referring Physician Pediatric Surgery 12/09/19 Maru Villagomez, RN Registered Nurse 12/10/19 Ang Slade MD [address] [place] [address] 769935 Urology 04/24/20 Carlos Joyner MD [address] [place] [address] 373525 Assigned Surgical Provider 12/24/20 Annalise Orta PA-C 5200 [place] [address] Assigned Cancer Care Provider 05/13/21 11/01/22 Ang Slade MD [address] [address] Urology 12/18/22 Lakshmi Wilhelm PA-C [address] [place] [address] 360025 Physician Registered Phlebotomist Part Time Urology 02/03/23 [place] [address] [place] [address] Assigned PCP 02/06/23 Alissa Perez PA-C [address] [place] [address] Physician Registered Phlebotomist Part Time Surgery 09/04/23 Lakshmi Wilhelm PA-C [address] [place] [address] Physician Registered Phlebotomist Part Time Urology 09/16/23 Aidee Valero PA-C [address] [place] [address] 973795 Assigned Musculoskeletal Provider 04/17/24 Tanisha Marlow 4120 [facility] [address] 03/30/24 documented as of this encounter
--- OUTSIDE RECORDS SUMMARY | 2024-04-29 02:25 | XMS_ITS | Encounter Summary ---
Author Organization [facility] Address [address] [place] [address] Care Team Providers Care Software Validation Technician Name Role Phone Carlos Joyner MD Unavailable [phone] Jadon Murray MD Unavailable [phone] Maru Villagomez RN Unavailable Unavailable Ignacia Duran MD Primary Care Provider Ang Slade MD Unavailable +[phone] Carlos Joyner MD Unavailable +[phone] Annalise Orta PA-C Unavailable Ang Slade MD Unavailable Lakshmi Wilhelm-C Unavailable +[phone] Heladio Willoughby MD Primary Care Provider [phone] Heladio Willoughby MD Unavailable Alissa Perez PA-C Unavailable [phone] Lakshmi Wilhelm-C Unavailable +[phone] Aidee Valero PA-C Unavailable Reason for Visit * Reason Onset Date Comments Call Back 06/27/2021 Bladder infectio n Encounter Details Date Type Department Care Team (Late st Contact Info) Description 06/27/2021 Telephone [facility] Urology Clinic [address] 4th [place] [address] Carlos Joyner MD [address] [place] [address] Call Back (Bladder infection) Social History [...] COVID-19? No / Unsure 06/19/2021 11:16 AM RETAIL PHARMACY TECHNICIAN documented as of this encounter Miscellaneous Notes * Telephone Encounter - Karen Sheth - 06/27/2021 12:22 PM CST [facility] Phone Message May a detailed [...] Center ([facility]): uro Travel Screening: Not Applicable [place] PHARMACY TECHNICIAN documented in this encounter Plan of Treatment Upcoming Encounters Date Type Department Care Team (Late st Contact Info) Description 04/29/2024 5:00 PM RETAIL PHARMACY TECHNICIAN Office Visit [facility] [address] [place] [phone] Carlene Knight APRN CREDIT UNION MANAGER [address] [place] [address] 06/15/2024 9:30 AM RETAIL PHARMACY TECHNICIAN Office Visit [address] [address] Xu Prince MD [address] [place] [address] 07/21/2024 4:00 PM RETAIL PHARMACY TECHNICIAN Office Visit [facility] [address] [place] [address] [place] [address] [facility] [place] 6225[address] documented as of this encounter Visit Diagnoses Not on filedocumented in this encounter Additional Health Concerns Infection Onset Date Last Indicated Resolved Time MRSA Comment:Added from external infection. Pt has had Staph infections but never MRSA from Care everywhere chart review. Removing MRSA 02.06.23 06/17/2019 02/06/2023 9:41 AM C DT documented as of this encounter Care Teams Software Validation Technician Relationship Specialty Start Date End Date Ignacia Duran MD PCP - General Pediatrics 01/20/20 03/04/23 [place] [address] [place] [address] PCP - General 03/05/23 Carlos Joyner MD [address] [place] [address] Urology 12/09/19 Jadon Murray MD [facility] 2530 [facility] 550 [place] [address] Referring Physician Pediatric Surgery 12/09/19 Maru Villagomez, OTILIO Registered Nurse 12/10/19 Ang Slade MD [address] [place] [address] 394 [place] [address] Urology 04/24/20 Carlos Joyner MD [address] [place] [address] Assigned Surgical Provider 12/24/20 Annalise Orta PA-C 5200 [place] [address] Assigned Cancer Care Provider 05/13/21 11/01/22 Ang Slade MD [address] [place] [address] 454485 Urology 12/18/22 Lakshmi Wilhelm PA-C [address] [place] [address] Physician Budget Record Clerk Urology 02/03/23 [place] [address] [place] [address] Assigned PCP 02/06/23 Alissa Perez PA-C [address] [place] [address] Physician Budget Record Clerk Surgery 09/04/23 Lakshmi Wilhelm PA-C [address] [place] [address] Physician Budget Record Clerk Urology 09/16/23 Aidee Valero PA-C [address] [place] [address] Assigned Musculoskeletal Provider 04/17/24 Tanisha Marlow 4120 [facility] [address] 03/30/24 documented as of this encounter
--- OUTSIDE RECORDS SUMMARY | 2024-04-29 02:25 | XMS_ITS | Encounter Summary ---
Author Organization [facility] Address [address] [place] [address] Care Team Providers Care Dry Box Tender Name Role Phone Carlos Joyner MD Unavailable [phone] Jadon Murray MD Unavailable [phone] Maru Villagomez RN Unavailable Unavailable Ignacia Duran MD Primary Care Provider Ang Slade MD Unavailable +[phone] Carlos Joyner MD Unavailable +[phone] Annalise Orta PA-C Unavailable +[phone] Ang Slade MD Unavailable [phone] Lakshmi Wilhelm-C Unavailable [phone] Heladio Willoughby MD Primary Care Provider [phone] Heladio Willoughby MD Unavailable Alissa Perez PA-C Unavailable [phone] Lakshmi Wilhelm PA-C Unavailable [phone] Aidee Valero PA-C Unavailable +[phone] Encounter Details Date Type Department Care Team (Late st Contact Info) Description 11/07/2021 [facility] Urology Clinic [address] 4th [place] [address] Analisa Palacio, RN Social History [...] Contact Info) Description 04/29/2024 5:00 PM RETAIL ADVERTISING SALES MANAGER [facility] [address] [place] [address] Carlene Knight APRN CNP [address] [place], [place] [id number] 06/15/2024 9:30 AM RETAIL ADVERTISING SALES MANAGER Office Visit [address] [phone] Xu Prince MD [address] [place] [address] 305634 07/21/2024 4:00 PM RETAIL ADVERTISING SALES MANAGER [facility] [address] [place] [address] [place] [address] [place], [place] 5381968 documented as of this encounter Visit Diagnoses Not on filedocumented in this encounter Additional Health Concerns Infection Onset Date Last Indicated Resolved Time MRSA Comment:Added from external infection. Pt has had Staph infections but never MRSA from Care everywhere chart review. Removing MRSA 9.14.23 06/17/2019 02/06/2023 9:41 AM C DT documented as of this encounter Care Teams Dry Box Tender Relationship Specialty Start Date End Date Ignacia Duran MD PCP - General Pediatrics 01/20/20 03/04/23 [place] [address] [facility] [place] [address] PCP - General 03/05/23 Carlos Joyner MD 9 [place] [address] Urology 12/09/19 Jadon Murray MD [facility] [address] [address] Referring Physician Pediatric Surgery 12/09/19 Maru Villagomez, RN Registered Nurse 12/10/19 Ang Slade MD [address] 450635 Urology 04/24/20 Carlos Joyner MD [address] [place] [address] 774275 Assigned Surgical Provider 12/24/20 Annalise Orta PA-C 5200 [place] [address] Assigned Cancer Care Provider 05/13/21 11/01/22 Ang Slade MD [address] [address] Urology 12/18/22 Lakshmi Wilhelm PA-C [address] [place] [address] Physician Carving Machine Operator Urology 02/03/23 [place] [address] [place] [address] Assigned PCP 02/06/23 Alissa Perez PA-C [address] [place] [address] Physician Carving Machine Operator Surgery 09/04/23 Lakshmi Wilhelm PA-C [address] [place] [address] Physician Carving Machine Operator Urology 09/16/23 Aidee Valero PA-C [address] [place] [address] Assigned Musculoskeletal Provider 04/17/24 Tanisha Marlow 4120 [facility] [address] 03/30/24 documented as of this encounter
--- OUTSIDE RECORDS SUMMARY | 2024-04-29 02:25 | XMS_ITS | Encounter Summary ---
Author Organization [facility] Address [address] [place] [address] Care Team Providers Care Perishable Freight Inspector Name Role Phone Carlos Joyner MD Unavailable +[phone] Jadon Murray MD Unavailable +[phone] Maru Villagomez RN Unavailable Unavailable Ignacia Duran MD Primary Care Provider [phone] Carlos Joyner MD Unavailable +[phone] Ang Slade MD Unavailable [phone] Ang Slade MD Unavailable +[phone] Carlos Joyner MD Unavailable +[phone] Annalise Orta PA-C Unavailable +[phone] Ang Slade MD Unavailable +[phone] Lakshmi Wilhelm-C Unavailable +[phone] Heladio Willoughby MD Primary Care Provider [phone] Heladio Willoughby MD Unavailable Alissa Perez PA-C Unavailable [phone] Lakshmi Wilhelm-C Unavailable [phone] Aidee Valero PA-C Unavailable +[phone] Reason for Visit * Reason Onset Date Comments Call Back 06/07/2020 Stent FYI Encounter Details Date Type Department Care Team (Late st Contact Info) Description 06/07/2020 [facility] [place] 211449 [facility] 4th [place] [phone] Ang Slade MD 420 [facility] 394 [place] [address] Call Back (Stent FYI) Social History Tobacco [...] Called them back message sent to [email or web address] ETING SALES SUPERVISOR * Telephone Encounter - Zo Geiger - 06/07/2020 3:16 PM CST [facility] Phone Message May a detailed message be left on voicemail: yes Reason for Call: Other: Cristine calling to let us know that Laina's stent was put [facility] a [facility] in [facility] Emergency room on 02/04. Cristine is hoping to get a call back to discuss. Action Taken: Message routed to: [facility] Urology Travel Screening: Not Applicable ETING SALES SUPERVISOR documented in this encounter Plan of Treatment Upcoming Encounters Date Type Department Care Team (Late st Contact Info) Description 04/29/2024 5:00 PM MARKETING SALES SUPERVISOR Office Visit [facility] [address] [place] [address] Carlene Knight APRN SHAMPOOER [address] [place] [address] 06/15/2024 9:30 AM MARKETING SALES SUPERVISOR Office Visit [facility] [place] [address] [place] [phone] Xu Prince MD [address] [place] [address] 106 [place], [place] 481744 07/21/2024 4:00 PM MARKETING SALES SUPERVISOR [facility] [address] [place] [address] [place] [address] [place], [place] 7931968 documented as of this encounter Visit Diagnoses Not on filedocumented in this encounter Additional Health Concerns Infection Onset Date Last Indicated Resolved Time MRSA Comment:Added from external infection. Pt has had Staph infections but never MRSA from Care everywhere chart review. Removing MRSA 02.06.23 06/17/2019 02/06/2023 9:41 AM C DT documented as of this encounter Care Teams Perishable Freight Inspector Relationship Specialty Start Date End Date Ignacia Duran MD PCP - General Pediatrics 01/20/20 03/04/23 [place] [address] [place], [place] 6044568 PCP - General 03/05/23 Carlos Joyner MD [address] [place] [address] Urology 12/09/19 Jadon Murray MD [facility] 2530 [facility] 550 [place] [address] Referring Physician Pediatric Surgery 12/09/19 Maru Villagomez, OTILIO Registered Nurse 12/10/19 Carlos Joyner MD 909 [place] [address] Assigned Surgical Provider 03/17/20 Ang Slade MD 420 [facility] 394 [place] [address] Urology 04/24/20 Ang Slade MD 420 [facility] 394 [place], [place] 886375 Assigned Surgical Provider 08/13/20 Carlos Joyner MD [address] [place] [address] 967255 Assigned Surgical Provider 12/24/20 Annalise Orta PA-C 5200 [place] [address] Assigned Cancer Care Provider 05/13/21 11/01/22 Ang Slade MD [address] 974745 Urology 12/18/22 Lakshmi Wilhelm PA-C [address] [place] [address] 844185 Physician Site Engineer Urology 02/03/23 [place] [address] [place] [address] Assigned PCP 02/06/23 Alissa Perez PA-C [address] [place] [address] [place] [address] Physician Site Engineer Surgery 09/04/23 Lakshmi Wilhelm PA-C 909 [place] [address] Physician Site Engineer Urology 09/16/23 Aidee Valero PA-C [address] [place] [address] Assigned Musculoskeletal Provider 04/17/24 Tanisha Marlow 4120 [facility] [address] 03/30/24 documented as of this encounter
--- OUTSIDE RECORDS SUMMARY | 2024-04-29 02:25 | XMS_ITS | Encounter Summary ---
Author Organization [facility] Address [address] [place] [address] Care Team Providers Care Care Nurse Rn Name Role Phone Carlos Joyner MD Unavailable [phone] Jadon Murray MD Unavailable +[phone] Maru Villagomez RN Unavailable Unavailable Ignacia Duran MD Primary Care Provider Ang Slade MD Unavailable +[phone] Carlos Joyner MD Unavailable +[phone] Annalise Orta PA-C Unavailable +[phone] Ang Slade MD Unavailable +[phone] Lakshmi Wilhelm PA-C Unavailable [phone] Heladio Willoughby MD Primary Care Provider [phone] Heladio Willoughby MD Unavailable Alissa Perez PA-C Unavailable [phone] Lakshmi Wilhelm PA-C Unavailable +[phone] Aidee Valero PA-C Unavailable +[phone] Encounter Details Date Type Department Care Team (Late st Contact Info) Description 07/31/2021 [facility] Preoperative Assessment Center [address] 5th [place] [address] Makenzie Drummond, RN Social History [...] st Contact Info) Description 04/29/2024 5:00 PM FACILITIES TECHNICIAN [facility] [address] [place] [phone] JacksonCarlene APRN CYLINDER SANDER OPERATOR [address] [place] [address] 06/15/2024 9:30 AM FACILITIES TECHNICIAN Office Visit [address] [address] Xu Prince MD [address] [place] [address] 64266454 07/21/2024 4:00 PM FACILITIES TECHNICIAN Office Visit [facility] [address] [place] [phone] [place] [address] [place], [place] 9288068 documented as of this encounter Visit Diagnoses Not on filedocumented in this encounter Additional Health Concerns Infection Onset Date Last Indicated Resolved Time MRSA Comment:Added from external infection. Pt has had Staph infections but never MRSA from Care everywhere chart review. Removing MRSA 02.06.23 06/17/2019 02/06/2023 9:41 AM C DT documented as of this encounter Care Teams Care Nurse Rn Relationship Specialty Start Date End Date Ignacia Duran MD PCP - General Pediatrics 01/20/20 03/04/23 [place] [address] [facility] [place] [address] PCP - General 03/05/23 Carlos Joyner MD [address] [place] [address] Urology 12/09/19 Jadon Murray MD [facility] 2530 [facility] [address] [place] [address] Referring Physician Pediatric Surgery 12/09/19 Maru Villagomez, RN Registered Nurse 12/10/19 Ang Slade MD [address] [place] [address] 787115 Urology 04/24/20 Carlos Joyner MD [address] [place] [address] 002145 Assigned Surgical Provider 12/24/20 Annalise Orta PA-C 5200 [place] [address] Assigned Cancer Care Provider 05/13/21 11/01/22 Ang Slade MD [address] 263915 Urology 12/18/22 Lakshmi Wilhelm PA-C [address] [place] [address] Physician Training Mgr Urology 02/03/23 [place] [address] [address] [place] [address] Assigned PCP 02/06/23 Alissa Perez PA-C [address] [place] [address] Physician Training Mgr Surgery 09/04/23 aLkshmi Wilhelm PA-C [address] [place] [address] Physician Training Mgr Urology 09/16/23 Aidee Valero PA-C 909 [place], [place] 814055 Assigned Musculoskeletal Provider 04/17/24 Tanisha Marlow 4120 [facility] [address] 03/30/24 documented as of this encounter
--- OUTSIDE RECORDS SUMMARY | 2024-04-29 02:25 | XMS_ITS | Encounter Summary ---
Author Organization [facility] Address [address] [place] [address] Care Team Providers Care Clothes Model Name Role Phone Carlos Joyner MD Unavailable +[phone] Jadon Murray MD Unavailable +[phone] Maru Villagomez RN Unavailable Unavailable Ignacia Duran MD Primary Care Provider [phone] Carlos Joyner MD Unavailable +[phone] Ang Slade MD Unavailable +[phone] Ang Slade MD Unavailable +[phone] Carlos Joyner MD Unavailable +[phone] Annalise Orta-C Unavailable +[phone] Ang Slade MD Unavailable [phone] Lakshmi Wilhelm-C Unavailable +[phone] Heladio Willoughby MD Primary Care Provider [phone] Heladio Willoughby MD Unavailable Alissa Perez PA-C Unavailable [phone] Lakshmi Wilhelm-C Unavailable [phone] Aidee Valero PA-C Unavailable +[phone] Reason for Visit * Reason Comments Orders Encounter Details Date Type Department Care Team (Late st Contact Info) Description 02/02/2020 Orders Only [facility] [address] [phone] Maru Villagomez, RN Social History Tobacco Use [...] st Contact Info) Description 04/29/2024 5:00 PM FRONT DESK AUXILIARY [facility] [address] [place] [address] Carlene Knight APRN CNP [address] [place], [place] 7627468 06/15/2024 9:30 AM FRONT DESK AUXILIARY [facility] [address] [place] [phone] Xu Prince MD [address] [place] [address] 79916454 07/21/2024 4:00 PM FRONT DESK AUXILIARY [facility] [address] [place] [address] [place] [address] [place] [address] documented as of this encounter Visit Diagnoses Not on filedocumented in this encounter Additional Health Concerns Infection Onset Date Last Indicated Resolved Time MRSA Comment:Added from external infection. Pt has had Staph infections but never MRSA from Care everywhere chart review. Removing MRSA 9.14.23 06/17/2019 02/06/2023 9:41 AM C DT documented as of this encounter Care Teams Clothes Model Relationship Specialty Start Date End Date Ignacia Duran MD PCP - General Pediatrics 01/20/20 03/04/23 [place] [address] [place] [address] PCP - General 03/05/23 Carlos Joyner MD [address] [place] [address] 734765 Urology 12/09/19 Jadon Murray MD [facility] [address] [id number] Referring Physician Pediatric Surgery 12/09/19 Maru Villagomez, RN Registered Nurse 12/10/19 Carlos Joyner MD [address] [place] [address] 227875 Assigned Surgical Provider 03/17/20 Ang Slade MD [address] [place] [address] 759355 Urology 04/24/20 Ang Slade MD [address] [place] [address] 327445 Assigned Surgical Provider 08/13/20 Carlos Joyner MD [address] [place] [address] 799545 Assigned Surgical Provider 12/24/20 Annalise Orta PA-C 5200 [place] [address] Assigned Cancer Care Provider 05/13/21 11/01/22 Ang Slade MD [address] [place] [address] 447345 MD Urology 12/18/22 Lakshmi Wilhelm PA-C [address] [place] [address] 603635 Physician Deputy Coroner Urology 02/03/23 [place] [address] [place] [address] Assigned PCP 02/06/23 Alissa Perez PA-C [address] [place] [address] 485685 Physician Deputy Coroner Surgery 09/04/23 Lakshmi Wilhelm PA-C [address] [place] [address] 661305 Physician Deputy Coroner Urology 09/16/23 Aidee Valero PA-C [address] [place] [address] 737935 Assigned Musculoskeletal Provider 04/17/24 Tanisha Marlow 4120 [facility] [address] 03/30/24 documented as of this encounter
--- OUTSIDE RECORDS SUMMARY | 2024-04-29 02:25 | XMS_ITS | Encounter Summary ---
Author Organization [place] Address [address] [place] [address] Care Team Providers Care Nut Sorter Operator Name Role Phone Carlos Joyner MD Unavailable +[phone] Jadon Murray MD Unavailable [phone] Maru Villagomez RN Unavailable Unavailable Ignacia Duran MD Primary Care Provider Ang Slade MD Unavailable [phone] Carlos Joyner MD Unavailable +[phone] Annalise Orta-C Unavailable +[phone] Ang Slade MD Unavailable [phone] Lakshmi Wilhelm-C Unavailable [phone] Heladio Willoughby MD Primary Care Provider [phone] Heladio Willoughby MD Unavailable Alissa Perez PA-C Unavailable [phone] Lakshmi Wilhelm-C Unavailable [phone] Aidee Valero PA-C Unavailable Encounter Details Date Type Department Care Team (Late st Contact Info) Description 10/12/2021 [facility] Preoperative Assessment Center [address] 5th [place] [address] Tnaisha Coe PA-C [address] [place] [address] Social History Tobacco Use Types Packs/Day [...] st Contact Info) Description 04/29/2024 5:00 PM BURIAL VAULT MAKER [facility] [address] [place] [address] Carlene Knight APRN SKEET OPERATOR [address] [place], [place] 3526668 06/15/2024 9:30 AM BURIAL VAULT MAKER Office Visit [address] [phone] Xu Prince MD [address] [place] [address] 07/21/2024 4:00 PM BURIAL VAULT MAKER Office [facility] [address] [place] [address] [place] [address] [place], [place] [phone] documented as of this encounter Visit Diagnoses Not on filedocumented in this encounter Additional Health Concerns Infection Onset Date Last Indicated Resolved Time MRSA Comment:Added from external infection. Pt has had Staph infections but never MRSA from Care everywhere chart review. Removing MRSA 02.06.23 06/17/2019 02/06/2023 9:41 AM C DT documented as of this encounter Care Teams Nut Sorter Operator Relationship Specialty Start Date End Date Ignacia Duran MD PCP - General Pediatrics 01/20/20 03/04/23 [place] [address] [facility] [place] [address] PCP - General 03/05/23 Carlos Joyner MD [address] [place] [address] Urology 12/09/19 Jadon Murray MD [facility] [address] [address] Referring Physician Pediatric Surgery 12/09/19 Maru Villagomez, OTILIO Registered Nurse 12/10/19 Ang Slade MD [address] [place] [address] Urology 04/24/20 Carlos Joyner MD [address] [place] [address] 043945 Assigned Surgical Provider 12/24/20 Annalise Orta PA-C 5200 [place] [address] Assigned Cancer Care Provider 05/13/21 11/01/22 Ang Slade MD [address] [place] [address] Urology 12/18/22 Lakshmi Wilhelm PA-C [address] [place] [address] 853195 Physician Spiral Tube Winder Urology 02/03/23 [place] [address] [place] [address] Assigned PCP 02/06/23 Alissa Perez PA-C [address] [place] [address] 124035 Physician Spiral Tube Winder Surgery 09/04/23 Lakshmi Wilhelm PA-C [address] [place] [address] 083965 Physician Spiral Tube Winder Urology 09/16/23 Aidee Valero PA-C [address] [place] [address] 748185 Assigned Musculoskeletal Provider 04/17/24 Tanisha Marlow 4120 [facility] [address] 03/30/24 documented as of this encounter
--- OUTSIDE RECORDS SUMMARY | 2024-04-29 02:25 | XMS_ITS | Encounter Summary ---
Author Organization [facility] Address [address] [place] [address] Care Team Providers Care Surface Boss Name Role Phone Carlos Joyner MD Unavailable [phone] Jadon Murray MD Unavailable +[phone] Maru Villagomez RN Unavailable Unavailable Ignacia Duran MD Primary Care Provider Ang Slade MD Unavailable +[phone] Carlos Joyner MD Unavailable +[phone] Annalise Orta PA-C Unavailable +[phone] Ang Slade MD Unavailable +[phone] Lakshmi Wilhelm-C Unavailable +[phone] Heladio Willoughby MD Primary Care Provider [phone] Heladio Willoughby MD Unavailable Alissa Perez PA-C Unavailable [phone] Lakshmi Wilhelm PA-C Unavailable +[phone] Aidee Valero PA-C Unavailable +[phone] Encounter Details Date Type Department Care Team (Late st Contact Info) Description 12/05/2021 [facility] Clinic [address] [address] [facility] Social History Tobacco Use Types Packs/Day Years [...] st Contact Info) Description 04/29/2024 5:00 PM TORCH BURNER [facility] [address] [place] [address] Carlene Knight APRN WILLOW MACHINE OPERATOR [address] [place], [place] [id number] 06/15/2024 9:30 AM TORCH BURNER Office Visit [facility] [address] [phone] Xu Prince MD [address] [place] [address] 880104 07/21/2024 4:00 PM TORCH BURNER [facility] [address] [place] [address] [place] [address] [place], [place] [phone] documented as of this encounter Visit Diagnoses Not on filedocumented in this encounter Additional Health Concerns Infection Onset Date Last Indicated Resolved Time MRSA Comment:Added from external infection. Pt has had Staph infections but never MRSA from Care everywhere chart review. Removing MRSA 9.14.23 06/17/2019 02/06/2023 9:41 AM C DT documented as of this encounter Care Teams Surface Boss Relationship Specialty Start Date End Date Ignacia Duran MD PCP - General Pediatrics 01/20/20 03/04/23 [place] [address] [facility] [address] PCP - General 03/05/23 Carlos Joyner MD 9 [place] [address] Urology 12/09/19 Jadon Murray MD [facility] [address] [facility] 550 [place] [address] Referring Physician Pediatric Surgery 12/09/19 Maru Villagomez, RN Registered Nurse 12/10/19 Ang Slade MD [address] [place] [address] 030745 Urology 04/24/20 Carlos Joyner MD [address] [place] [address] Assigned Surgical Provider 12/24/20 Annalise Orta PA-C 5200 [place] [address] Assigned Cancer Care Provider 05/13/21 11/01/22 Ang Slade MD [address] [address] Urology 12/18/22 Lakshmi Wilhelm PA-C [address] [place] [address] Physician Beam Doffer Urology 02/03/23 [place] [address] [place] [address] Assigned PCP 02/06/23 Alissa Perez PA-C [address] [place] [address] Physician Beam Doffer Surgery 09/04/23 Lakshmi Wilhelm PA-C [address] [place] [address] Physician Beam Doffer Urology 09/16/23 Aidee Valero PA-C [address] [place] [address] Assigned Musculoskeletal Provider 04/17/24 Tanisha Marlow 4120 [facility] [address] 03/30/24 documented as of this encounter
--- OUTSIDE RECORDS SUMMARY | 2024-04-29 02:25 | XMS_ITS | Encounter Summary ---
Author Organization [place] Address [address] [place] [address] Care Team Providers Care Supervisor Audit Clerks Name Role Phone Carlos Joyner MD Unavailable +[phone] Jadon Murray MD Unavailable +[phone] Maru Villagomez RN Unavailable Unavailable Ignacia Duran MD Primary Care Provider [phone] Carlos Joyner MD Unavailable +[phone] Ang Slade MD Unavailable [phone] Ang Slade MD Unavailable +[phone] Carlos Joyner MD Unavailable +[phone] Annalise Orta PA-C Unavailable +[phone] Ang Slade MD Unavailable +[phone] Lakshmi Wilhelm-C Unavailable +[phone] Heladio Willoughby MD Primary Care Provider [phone] Heladio Willoughby MD Unavailable Alissa Perez PA-C Unavailable [phone] Lakshmi Wilhelm-C Unavailable +[phone] Aidee Valero PA-C Unavailable +[phone] Reason for Visit * Reason Onset Date Comments Call Back 08/01/2020 Miscommunication between urinary results Encounter Details Date Type Department Care Team (Late st Contact Info) Description 08/01/2020 Telephone [facility] Urology Clinic [address] [place] [phone] Ang Slade MD 420 [facility] 394 [place] [address] Call Back (Miscommunication between urinary results) Social [...] COVID-19? No / Unsure 08/02/2020 8:37 AM EARLY CHILDHOOD EDUCATION INSTRUCTOR documented as of this encounter Miscellaneous Notes * Telephone Encounter - Diego Sams - 08/01/2020 11:21 AM CST [facility] Phone Message May a detailed message be left on voicemail: yes Reason for Call: Other: Cristine with [facility] calling because pt's primary, , would like to speak with or a nurse regarding pt's urinary results. Reports that there is some miscommunication that she wants to clarify. Please call back. Action Taken: Message routed to: [facility] uro Travel Screening: Not Applicable Y CHILDHOOD EDUCATION INSTRUCTOR documented in this encounter Plan of Treatment Upcoming Encounters Date Type Department Care Team (Late st Contact Info) Description 04/29/2024 5:00 PM EARLY CHILDHOOD EDUCATION INSTRUCTOR Office Visit [facility] [address] [place] [phone] Carlene Knight APRN BOX SPRING FRAME BUILDER [address] [place], [place] [phone] 06/15/2024 9:30 AM EARLY CHILDHOOD EDUCATION INSTRUCTOR Office Visit [facility] [address] [facility] [place] [phone] Xu Prince MD [address] [place] [address] 106 [place] [address] 07/21/2024 4:00 PM EARLY CHILDHOOD EDUCATION INSTRUCTOR Office [facility] [address] [place] [phone] [place] [address] [place], [place] 5137068 documented as of this encounter Visit Diagnoses Not on filedocumented in this encounter Additional Health Concerns Infection Onset Date Last Indicated Resolved Time MRSA Comment:Added from external infection. Pt has had Staph infections but never MRSA from Care everywhere chart review. Removing MRSA 02.06.23 06/17/2019 02/06/2023 9:41 AM C DT documented as of this encounter Care Teams Supervisor Audit Clerks Relationship Specialty Start Date End Date Ignacia Duran MD PCP - General Pediatrics 01/20/20 03/04/23 [place] [address] [place], [place] [phone] PCP - General 03/05/23 Carlos Joyner MD [address] [place] [address] Urology 12/09/19 Jadon Murray MD [facility] [address] [facility] 550 [place] [address] Referring Physician Pediatric Surgery 12/09/19 Maru Villagomez, OTILIO Registered Nurse 12/10/19 Carlos Joyner MD 909 [place], [place] 679195 Assigned Surgical Provider 03/17/20 Ang Slade MD 420 [facility] 394 [place], [place] 639295 Urology 04/24/20 Ang Slade MD 420 [facility] 394 [place], [place] 168985 Assigned Surgical Provider 08/13/20 Carlos Joyner MD [address] [place] [address] 384255 Assigned Surgical Provider 12/24/20 Annalise Orta PA-C 5200 [place] [address] Assigned Cancer Care Provider 05/13/21 11/01/22 Ang Slade MD [address] 228855 Urology 12/18/22 Lakshmi Wilhelm PA-C [address] [place] [address] 406915 Physician Education Diagnostician Urology 02/03/23 [place] [address] [facility] [place] [address] Assigned PCP 02/06/23 Alissa Perez PA-C [address] [place] [address] Physician Education Diagnostician Surgery 09/04/23 Lakshmi Wilhelm PA-C [address] [place] [address] Physician Education Diagnostician Urology 09/16/23 Aidee Valero PA-C [address] [place] [address] Assigned Musculoskeletal Provider 04/17/24 Tanisha Marlow 4120 [facility] [address] 03/30/24 documented as of this encounter
--- OUTSIDE RECORDS SUMMARY | 2024-04-29 02:25 | XMS_ITS | Encounter Summary ---
Author Organization [facility] Address [address] [place] [address] Care Team Providers Care City Secretary Name Role Phone Carlos Joyner MD Unavailable [phone] Jadon Murray MD Unavailable + [phone] Maru Villagomez RN Unavailable Unavailable Ignacia Duran MD Primary Care Provider [phone] Ang Slade MD Unavailable [phone] Carlos Joyner MD Unavailable [phone] Ang Slade MD Unavailable [phone] Lakshmi Wilhelm-C Unavailable [phone] Heladio Willoughby MD Primary Care Provider Heladio Willoughby MD Unavailable Alissa Preez PA-C Unavailable [phone] Lakshmi Wilhelm-C Unavailable [phone] Aidee Valero PA-C Unavailable [phone] Encounter Details Date Type Department Care Team (Late st Contact Info) Description 12/30/2022 [facility] Medical Advice [facility] Urology Clinic [address] [place] [address] Analisa Palacio, OTILIO Social History [...] st Contact Info) Description 04/29/2024 5:00 PM SPECIAL EFFECTS TECHNICIAN [facility] [address] [place] [address] Carlene Knight APRN BELT PRESS OPERATOR [address] [place], [place] 0281868 06/15/2024 9:30 AM SPECIAL EFFECTS TECHNICIAN Office Visit [address] [phone] Xu Prince MD [address] [place] [address] 07/21/2024 4:00 PM SPECIAL EFFECTS TECHNICIAN [facility] [address] [place] [address] [place] [address] [place], [place] 0358468 documented as of this encounter Visit Diagnoses Not on filedocumented in this encounter Additional Health Concerns Infection Onset Date Last Indicated Resolved Time MRSA Comment:Added from external infection. Pt has had Staph infections but never MRSA from Care everywhere chart review. Removing MRSA 02.06.23 06/17/2019 02/06/2023 9:41 AM C DT documented as of this encounter Care Teams City Secretary Relationship Specialty Start Date End Date Ignacia Duran MD PCP - General Pediatrics 01/20/20 03/04/23 [place] [address] [place] [address] PCP - General 03/05/23 Carlos Joyner MD [address] [place] [address] Urology 12/09/19 Jadon Murray MD [facility] [address] [phone] Referring Physician Pediatric Surgery 12/09/19 Maru Villagomez, RN Registered Nurse 12/10/19 Ang Slade MD [address] [place] [address] Urology 04/24/20 Carlos Joyner MD [address] [place] [address] Assigned Surgical Provider 12/24/20 Ang Slade MD [address] [place] [address] 394 [place] [address] Urology 12/18/22 Lakshmi Wilhelm PA-C [address] [place] [address] 360005 Physician Wallcovering Hanger Urology 02/03/23 [place] [address] [place] [address] Assigned PCP 02/06/23 Alissa Perez PA-C [address] [place] [address] 404345 Physician Wallcovering Hanger Surgery 09/04/23 Lakshmi Wilhelm PA-C [address] [place] [address] 505165 Physician Wallcovering Hanger Urology 09/16/23 Aidee Valero PA-C [address] [place] [address] 936775 Assigned Musculoskeletal Provider 04/17/24 Tanisha Marlow 4120 [facility] [address] 03/30/24 documented as of this encounter
--- OUTSIDE RECORDS SUMMARY | 2024-04-29 02:25 | XMS_ITS | Encounter Summary ---
Author Organization [place] Address [address] [place] [address] Care Team Providers Care Sequins Winder Name Role Phone Carlos Joyner MD Unavailable [phone] Jadon Murray MD Unavailable [phone] Maru Villagomez RN Unavailable Unavailable Ignacia Duran MD Primary Care Provider Ang Slade MD Unavailable [phone] Carlos Joyner MD Unavailable +[phone] Annalise Orta PA-C Unavailable +[phone] Ang Slade MD Unavailable [phone] Lakshmi Wilhelm-C Unavailable Heladio Willoughby MD Primary Care Provider Heladio Willoughby MD Unavailable Alissa Perez PA-C Unavailable [phone] Lakshmi Wilhelm PA-C Unavailable Aidee Valero PA-C Unavailable Encounter Details Date Type Department Care Team (Late st Contact Info) Description 10/01/2021 [facility] Urology Clinic [address] [place] [address] Carlos Joyner MD [address] [place] [address] Social History Tobacco Use Types Packs/Day [...] st Contact Info) Description 04/29/2024 5:00 PM GANG SAWYER [facility] [address] [place] [address] Carlene Knight APRN INTERNAL COMBUSTION ENGINEER [address] [place], [place] 7382368 06/15/2024 9:30 AM GANG SAWYER Office Visit [address] [phone] Xu Prince MD [address] [place] [address] 07/21/2024 4:00 PM GANG SAWYER [facility] [address] [place] [address] [place] [address] [place], [place] 5517568 documented as of this encounter Visit Diagnoses Not on filedocumented in this encounter Additional Health Concerns Infection Onset Date Last Indicated Resolved Time MRSA Comment:Added from external infection. Pt has had Staph infections but never MRSA from Care everywhere chart review. Removing MRSA 02.06.23 06/17/2019 02/06/2023 9:41 AM C DT documented as of this encounter Care Teams Sequins Winder Relationship Specialty Start Date End Date Ignacia Duran MD PCP - General Pediatrics 01/20/20 03/04/23 [place] [address] [facility] [place] [address] PCP - General 03/05/23 Carlos Joyner MD [address] [place] [address] Urology 12/09/19 Jadon Murray MD [facility] [address] [address] Referring Physician Pediatric Surgery 12/09/19 Maru Villagomez, OTILIO Registered Nurse 12/10/19 Ang Slade MD [address] [place] [address] Urology 04/24/20 Carlos Joyner MD [address] [place] [address] Assigned Surgical Provider 12/24/20 Annalise Orta PA-C 5200 [place] [address] Assigned Cancer Care Provider 05/13/21 11/01/22 Ang Slade MD [address] [place] [address] Urology 12/18/22 Lakshmi Wilhelm PA-C [address] [place] [address] 035845 Physician Bottle Capping Machine Operator Urology 02/03/23 [place] [address] [place] [address] Assigned PCP 02/06/23 Alissa Perez PA-C [address] [place] [address] 062995 Physician Bottle Capping Machine Operator Surgery 09/04/23 Lakshmi Wilhelm PA-C [address] [place] [address] 748685 Physician Bottle Capping Machine Operator Urology 09/16/23 Aidee Valero PA-C [address] [place] [address] 966475 Assigned Musculoskeletal Provider 04/17/24 Tanisha Marlow 4120 [facility] [address] 03/30/24 documented as of this encounter
--- OUTSIDE RECORDS SUMMARY | 2024-04-29 02:25 | XMS_ITS | Encounter Summary ---
Author Organization [facility] Address [address] [place] [address] Care Team Providers Care Motor Assembly Supervisor Name Role Phone Carlos Joyner MD Unavailable [phone] Jadon Murray MD Unavailable [phone] Maru Villagomez RN Unavailable Unavailable Ignacia Duran MD Primary Care Provider [phone] Ang Slade MD Unavailable Carlos Joyner MD Unavailable +[phone] Annalise Orta PA-C Unavailable Ang Slade MD Unavailable Lakshmi Wilhelm-C Unavailable [phone] Heladio Willoughby MD Primary Care Provider [phone] Heladio Willoughby MD Unavailable Alissa Perez PA-C Unavailable [phone] Lakshmi Wilhelm PA-C Unavailable Aidee Valero PA-C Unavailable [phone] Encounter Details Date Type Department Care Team (Late st Contact Info) Description 12/18/2021 [facility] U[facility] Clinic [address] [place] [address] Carlos Joyner MD [address] [place] [address] Social History Tobacco Use Types Packs/Day [...] st Contact Info) Description 04/29/2024 5:00 PM CATALOGUE ILLUSTRATOR [facility] [address] [place] [address] Carlene Knight APRN CUFF CUTTER [address] [place], [place] 2994368 06/15/2024 9:30 AM CATALOGUE ILLUSTRATOR Office Visit [facility] [address] [place] [address] Xu Prince MD [address] [place] [address] 07/21/2024 4:00 PM CATALOGUE ILLUSTRATOR [facility] [address] [place] [address] [place] [address] [place] [address] documented as of this encounter Visit Diagnoses Not on filedocumented in this encounter Additional Health Concerns Infection Onset Date Last Indicated Resolved Time MRSA Comment:Added from external infection. Pt has had Staph infections but never MRSA from Care everywhere chart review. Removing MRSA 9.14.23 06/17/2019 02/06/2023 9:41 AM C DT documented as of this encounter Care Teams Motor Assembly Supervisor Relationship Specialty Start Date End Date Ignacia Duran MD PCP - General Pediatrics 01/20/20 03/04/23 [place] [address] [place] [address] PCP - General 03/05/23 Carlos Joyner MD [address] [place] [address] 445775 Urology 12/09/19 Jadon Murray MD [facility] [address] [id number] Referring Physician Pediatric Surgery 12/09/19 Maru Villagomez, OTILIO Registered Nurse 12/10/19 Ang Slade MD [address] [place] [address] 830195 Urology 04/24/20 Carlos Joyner MD [address] [place] [address] 042675 Assigned Surgical Provider 12/24/20 Annalise Orta PA-C 5200 [place] [address] Assigned Cancer Care Provider 05/13/21 11/01/22 Ang Slade MD [address] 001105 Urology 12/18/22 Lakshmi Wilhelm PA-C [address] [place] [address] 880885 Physician Ctrs Urology 02/03/23 [place] [address] [facility] [place] [address] Assigned PCP 02/06/23 Alissa Perez PA-C [address] [place] [address] 856045 Physician Ctrs Surgery 09/04/23 Lakshmi Wilhelm PA-C [address] [place] [address] 312755 Physician Ctrs Urology 09/16/23 Aidee Valero PA-C [address] [place] [address] 296035 Assigned Musculoskeletal Provider 04/17/24 Tanisha Marlow 4120 [facility] [address] 03/30/24 documented as of this encounter
--- OUTSIDE RECORDS SUMMARY | 2024-04-29 02:25 | XMS_ITS | Encounter Summary ---
Author Organization [place] Address [address] [place] [address] Care Team Providers Care Component Design Engineer Name Role Phone Carlos Joyner MD Unavailable [phone] Jadon Murray MD Unavailable [phone] Maru Villagomez RN Unavailable Unavailable Ignacia Duran MD Primary Care Provider Ang Slade MD Unavailable [phone] Carlos Joyner MD Unavailable +[phone] Annalise Orta PA-C Unavailable [phone] Ang Slade MD Unavailable [phone] Lakshmi Wilhelm-C Unavailable [phone] Heladio Willoughby MD Primary Care Provider [phone] Heladio Willoughby MD Unavailable Alissa Perez PA-C Unavailable [phone] Lakshmi Wilhelm PA-C Unavailable [phone] Aidee Valero PA-C Unavailable [phone] Encounter Details Date Type Department Care Team (Late st Contact Info) Description 06/19/2021 [facility] Urology Clinic [address] [place] [address] [address] Jenna Mcfadden, RN Social History Tobacco Use Types Packs/Day [...] COVID-19? No / Unsure 06/19/2021 11:16 AM INPUT OUTPUT CLERK documented as of this encounter Plan of Treatment Upcoming Encounters Date Type Department Care Team (Late st Contact Info) Description 04/29/2024 5:00 PM INPUT OUTPUT CLERK [facility] [address] [place] [address] Carlene Knight APRN SOFTWARE CONFIGURATION MANAGER [address] [place], [place] 5731168 06/15/2024 9:30 AM INPUT OUTPUT CLERK Office Visit [address] [address] Xu Prince MD [address] [place] [address] 07/21/2024 4:00 PM INPUT OUTPUT CLERK [facility] [address] [place] [address] [place] [address] [place] [address] documented as of this encounter Visit Diagnoses Not on filedocumented in this encounter Additional Health Concerns Infection Onset Date Last Indicated Resolved Time MRSA Comment:Added from external infection. Pt has had Staph infections but never MRSA from Care everywhere chart review. Removing MRSA 02.06.06/17/2019 02/06/2023 9:41 AM C DT documented as of this encounter Care Teams Component Design Engineer Relationship Specialty Start Date End Date Ignacia Duran MD PCP - General Pediatrics 01/20/20 03/04/23 [place] [address] [place] [address] PCP - General 03/05/23 Carlos Joyner MD [address] [place] [address] Urology 12/09/19 Jadon Murray MD [facility] [address] [id number] Referring Physician Pediatric Surgery 12/09/19 Maru Villagomez, RN Registered Nurse 12/10/19 Ang Slade MD [address] [place] [address] Urology 04/24/20 Carlos Joyner MD [address] [place] [address] Assigned Surgical Provider 12/24/20 Annalise Orta PA-C 5200 [place] [address] Assigned Cancer Care Provider 05/13/21 11/01/22 Ang Slade MD [address] [place] [address] 902945 Urology 12/18/22 Lakshmi Wilhelm PA-C [address] [place] [address] 026445 Physician Transportation Department Supervisor Urology 02/03/23 [place] [address] [place] [address] Assigned PCP 02/06/23 Alissa Perez PA-C [address] [place] [address] 281415 Physician Transportation Department Supervisor Surgery 09/04/23 Lakshmi Wilhelm PA-C [address] [place] [address] 840485 Physician Transportation Department Supervisor Urology 09/16/23 Aidee Valero PA-C 909 [place], [place] 843595 Assigned Musculoskeletal Provider 04/17/24 Tanisha Marlow 4120 [facility] [address] 03/30/24 documented as of this encounter
--- OUTSIDE RECORDS SUMMARY | 2024-04-29 02:25 | XMS_ITS | Encounter Summary ---
Author Organization [facility] Address [address] [place] [id number] Care Team Providers Care Applications Engineer Manufacturing Name Role Phone Carlos Joyner MD Unavailable [phone] Jadon Murray MD Unavailable [phone] Maru Villagomez RN Unavailable Unavailable Ignacia Duran MD Primary Care Provider Ang Slade MD Unavailable [phone] Carlos Joyner MD Unavailable [phone] Annalise Orta PA-C Unavailable [phone] Ang Slade MD Unavailable Lakshmi Wilhelm-C Unavailable [phone] Heladio Willoughby MD Primary Care Provider Heladio Willoughby MD Unavailable Alissa Perez PA-C Unavailable [phone] Lakshmi Wilhelm PA-C Unavailable [phone] Aidee Valero PA-C Unavailable [phone] Reason for Visit * Reason Onset Date Comments Orders 01/01/2022 Syringes - 35 an d 60 ml requested Encounter Details Date Type Department Care Team (Late st Contact Info) Description 01/01/2022 Telephone [facility] [address] 4th [place] [address] Carlos Joyner MD [address] [place] [id number] Orders (Syringes - 35 and 60 ml [...] the original note were not included. Analisa Palacio, OTILIO You; Sharon Mckeon CMA; Mohini Diego RN; Tani Olivares, GREGORIA 3 days ago AM Sarika would you look into this? You will have to call her home support person, Alecia, or send a mychart. Alecia is her caregiver and reads the mycharts Thank you!! Analisa Message text Sharon Mckeon CMA [place], Basil, EMT 6 days ago [facility] Can you place [...] syringes needed Date needed: RUPA Provider name: Borofsky Please fax order to [facility] at [phone]. Thank you. Action Taken: Other: Urology Travel Screening: Not Applicable documented in this encounter Plan of Treatment Upcoming Encounters Date Type Department Care Team (Late st Contact Info) Description 04/29/2024 5:00 PM HYDROLOGY TEACHER Office Visit [facility] [address] [place] [address] Carlene Knight APRN STEAM HAMMER OPERATOR [address] [place], [place] [id number] 06/15/2024 9:30 AM HYDROLOGY TEACHER Office Visit [address] [phone] Xu Prince MD [address] [place] [address] 07/21/2024 4:00 PM HYDROLOGY TEACHER Office Visit [facility] [address] [place] [address] [place] [address] [place], [place] [id number] documented as of this encounter Visit Diagnoses Not on filedocumented in this encounter Additional Health Concerns Infection Onset Date Last Indicated Resolved Time MRSA Comment:Added from external infection. Pt has had Staph infections but never MRSA from Care everywhere chart review. Removing MRSA 02.06.23 06/17/2019 02/06/2023 9:41 AM C DT documented as of this encounter Care Teams Applications Engineer Manufacturing Relationship Specialty Start Date End Date Ignacia Duran MD PCP - General Pediatrics 01/20/20 03/04/23 [place] [address] [place] [address] PCP - General 03/05/23 Carlos Joyner MD [address] [place] [address] Urology 12/09/19 Jadon Murray MD [facility] [address] [address] Referring Physician Pediatric Surgery 12/09/19 Maru Villagomez, RN Registered Nurse 12/10/19 Ang Slade MD [address] [place] [address] [id number] Urology 04/24/20 Carlos Joyner MD [address] [place] [address] [id number] Assigned Surgical Provider 12/24/20 Annalise Orta PA-C [address] [place] [address] Assigned Cancer Care Provider 05/13/21 11/01/22 Ang Slade MD [address] [place] [address] [id number] Urology 12/18/22 Lakshmi Wilhelm PA-C [address] [place] [address] [id number] Physician Binder Technician Urology 02/03/23 [place] [address] [place] [address] Assigned PCP 02/06/23 Alissa Perez PA-C [address] [place] [address] Physician Binder Technician Surgery 09/04/23 Lakshmi Wilhelm PA-C [address] [place] [address] Physician Binder Technician Urology 09/16/23 Aidee Valero PA-C [address] [place] [address] [id number] Assigned Musculoskeletal Provider 04/17/24 Tanisha Marlow [facility] [address] 03/30/24 documented as of this encounter
[2024-04-29 02:30] LABS: Chloride* 108 mmol/L (96-114); Potassium* 3.7 mmol/L (3.6-5.1); Sodium* 139 mmol/L (135-149)
[2024-04-29 02:32] LABS: Creatinine* 0.5 mg/dL (0.5-1.5); Estimated Glomerular Filt Rate 137 ml/min
[2024-04-29 02:33] LABS: Anion Gap 10 mEq/L (7-15); Blood Urea Nitrogen* 26 mg/dL (5-24); Calcium* 9.1 mg/dL (8.4-10.6); Carbon Dioxide* 21 mmol/L (20-32); Glucose* 117 mg/dL (60-115)
--- NOTE | 2024-04-29 02:43 | CRLHL7_ITS ---
For Patients: As a result of the Century Cures Act, medical imaging exams and procedure reports are released immediately into your electronic medical record. You may view this report before your referring provider. If you have questions, please contact your health care provider. INDICATION: Kidney infection. TECHNIQUE: CT abdomen and pelvis acquired with 66 cc Omnipaque 370 IV contrast. COMPARISON: CT abdomen and pelvis 02/05/2024. FINDINGS: Lower chest: Unremarkable. Liver: No suspicious hepatic lesion. Gallbladder and bile ducts: No gallstones. No suspicious biliary ductal dilatation. Pancreas: Unremarkable. No mass or inflammation. Spleen: Unremarkable. Normal in size. No masses. Adrenal glands: Unremarkable. No nodules. Kidneys: Horseshoe kidney. Multiple bilateral renal calculi with staghorn calculus at the left lower pole measuring up to 2.1 cm, similar to prior. There is [id number] bilateral hydronephrosis, likely minimally increased compared to prior. No obstructing calculus is evident. No suspicious renal lesion. GI tract: No bowel obstruction. No suspicious bowel wall thickening. Normal appendix. Vasculature: Abdominal aorta is normal in caliber. Mesenteric vasculature patent. Lymph nodes: No suspicious lymphadenopathy. Peritoneum/Abdominal Wall: No ascites or pneumoperitoneum. Pelvis: Air present within the bladder lumen in addition to layering bladder calculi. Bones: Spinal fixation hardware. No acute osseous abnormality evident. IMPRESSION: 1. Horseshoe kidney with multiple bilateral renal calculi including prominent staghorn calculus at the left lower pole measuring 2.1 cm, overall similar to the previous examination with probable mild interval increase in degree of mild to moderate bilateral hydronephrosis, although no obstructing calculi are definitively identified. 2. Bladder calculi. Gas within the bladder lumen. Correlate for cystitis or history of recent instrumentation. Please note that all CT scans at this facility use dose modulation, iterative reconstruction, and/or weight-based dosing when appropriate to reduce radiation dose to as low as reasonably achievable. Dictated by Joshua Edwards MD @ 04/29/2024 3:32:04 AM (Electronically Signed)
[2024-04-29 02:50] LABS: Procalcitonin* 0.53 ng/mL (<0.50)
--- NOTE | 2024-04-29 05:59 | W.PM.THH&P_ITS ---
Telehealth- H&P: HPI History of Present Illness Date Seen: 04/29/24 Chief complaint: fever Narrative: Laina Escudero is seen as an Interactive Telehealth visit. Laina Escudero is a 23 year old female with past medical history significant for spina bifida, paraplegia, mild intellectual disability, neurogenic bladder requiring straight cath 4-5 times a day, depression, GERD presented to ED with fevers and nausea/vomiting Pt has h/o spina bifida and paraplegia, neurogenic bladder requiring straight cath 6 times a day. She gets frequent UTIs. Last UTI in january 2024 grew enterobacter cloacae and e coli. Pt at the time of interview was sleeping and refused to participate in interview. She was awake however wished to rest. Pts family member who lives with her was present in the room at the time of interview and provided brief history. Pt is denying any pain any where. No nausea. Did have two BMS since coming to hospital. Unable to obtain further history or ROS from the patient. . Per history from ER provider, pt has been having recurrent UTIS and most recent UA from 04/21 by urology was positive nitrite and ecoli and enterobacter. She was started on cipro and bactrim and her first dose was just a day before coming in. Caregiver called nurse line because pt had been more confused, less responsive and had fever of 102. She was also tachycardic. She was brought to ED for further evaluation. In ED pt was tachycardic with HR in 120s. Workup in the emergency department showed mild leukocytosis with white count of 11.07, hemoglobin 17, hematocrit 52, platelets 196. Sodium 139, potassium 3.7, chloride 108, bicarb 21, BUN 26, creatinine 0.5, glucose 117, lactate 1.1, procalcitonin 0.53 CT scan showed horseshoe kidney with multiple bilateral renal calculi including prominent staghorn calculus at the left lower pole measuring 2.1 cm overall similar to the previous examination with probable mild interval increase in degree of mild to moderate bilateral hydronephrosis, although no obstructing calculi are definitely identified. Bladder calculi. Gas within the bladder lumen correlate for cystitis. Pt was given IV cipro and Iv fluids in ER. male who is Review of Systems Status of ROS: Reports: unobtainable due to medical condition [facility] Medical History (Updated 04/29/24 @ 06:11 by Aide Ortiz MD) Depression ?F32.A - Depression, unspecified (ICD-10) Paraplegia ?G82.20 - Paraplegia, unspecified (ICD-10) Horseshoe kidney ?Q63.1 - Lobulated, fused and horseshoe kidney (ICD-10) Mild intellectual disability ?F70 - Mild intellectual disabilities (ICD-10) Neurogenic bladder ?N31.9 - Neuromuscular dysfunction of bladder, unspecified (ICD-10) COVID-19 ?U07.1 - COVID-19 (ICD-10) Spina bifida ?Q05.9 - Spina bifida, unspecified (ICD-10) Surgical History (Updated 04/29/24 @ 02:09 by Jadon Thompson MD) History of spinal fusion ?Z98.1 - Arthrodesis status (ICD-10) H/O wisdom tooth extraction ?K08.409 - Partial loss of teeth, unspecified cause, unspecified class (ICD- 10) Hx of nephrolithotomy with removal of calculi ?Z98.890 - Other specified postprocedural states (ICD-10) ?Z87.442 - Personal history of urinary calculi (ICD-10) S/P RADAR AIR TRAFFIC CONTROLLER shunt ?Z98.2 - Presence of cerebrospinal fluid drainage device (ICD-10) Family History (Updated 04/29/24 @ 02:08 by Jadon Thompson MD) Father Diabetes Mother Bipolar 1 disorder Social History What is your current living situation?: I presently have a place to live Problems where you live: no known problems Problems where you live details: no known problems In the past 12 months, utilities in danger of being shut off: no In the past 12 mos, have been you worried that your food would run out before you had money to buy more?: never true In the past 12 mos, the food you bought just didn't last and you didn't have money to buy more?: never true Smoking Status: Never smoker Do you use any of these nicotine containing products: None Second hand tobacco smoke exposure: No How often do you have a drink containing alcohol: never AUDIT-C Alcohol total score: 0 Non-prescribed substance use: denies use Caffeine: Yes (Coffee) How often does anyone, including family, friends and others, physically hurt you : never How often does anyone, including family, friends and others, insult or talk down to you: never How often does anyone, including family, friends and others, threaten you with harm: never How often does anyone, including family, friends and others, scream or curse at you: never service: No Meds Home Medications and Allergies Home Medications ?Medication ?Instructions ?Recorded ?Confirmed ?Type oxybutynin chloride 5 mg tablet 5 mg PO BID 07/21/22 10/31/23 History indapamide 1.25 mg tablet 1.25 mg PO QAM 10/31/23 10/31/23 History potassium chloride 10 mEq 10 meq PO BID 10/31/23 10/31/23 History tablet,extended release(part/cryst) Allergies Allergy/AdvReac Type Severity Reaction Status Date / Time ibuprofen Allergy Intermediate 1 Kidney Verified 10/31/23 19:52 vancomycin Allergy Intermediate Swapnil Verified 10/31/23 19:52 Syndrome latex Allergy Mild Rash Verified 10/31/23 19:52 Exam Narrative Exam Narrative: Physical Exam GENERAL: ?vital signs reviewed, Pt doesnt appear to be in any acute resp distress HEART: +tachycardia, no murmer LUNGS: Clear to auscultation bilaterally with good air movement throughout ABDOMEN: Observation from nurse assisted exam, abdomen appears soft, nontender, and nondistended with Positive bowel sounds noted. EXTREMITIES: no gross edema Limited exam due to patient reluctant to participate. Const Vital Signs, click to edit/add: Vital Signs - 24 hr 04/29/24 01:26 04/29/24 01:32 04/29/24 01:51 Temperature 100.0 F H 100.0 F H Pulse Rate 123 H Pulse Rate [Right Pulse Oximeter] 125 H 127 H Respiratory Rate 20 20 20 Blood Pressure 113/71 Blood Pressure [Left Arm] 122/69 Blood Pressure [Right Upper Arm] 107/76 Pulse Oximetry 99 95 99 Oxygen Delivery Method Room Air Room Air 04/29/24 02:11 04/29/24 02:13 04/29/24 02:32 Temperature Pulse Rate 128 H 126 H Pulse Rate [Right Pulse Oximeter] Respiratory Rate 20 20 Blood Pressure 122/69 118/82 Blood Pressure [Left Arm] Blood Pressure [Right Upper Arm] Pulse Oximetry 94 99 97 Oxygen Delivery Method 04/29/24 03:46 04/29/24 03:54 04/29/24 04:12 Temperature 99.5 F 99.5 F 99.7 F H Pulse Rate Pulse Rate [Right Pulse Oximeter] 115 H 115 H 128 H Respiratory Rate 20 20 20 Blood Pressure Blood Pressure [Left Arm] 114/65 Blood Pressure [Right Upper Arm] 118/74 118/74 Pulse Oximetry 97 96 Oxygen Delivery Method Room Air Room Air 04/29/24 04:12 Temperature Pulse Rate Pulse Rate [Right Pulse Oximeter] Respiratory Rate 20 Blood Pressure Blood Pressure [Left Arm] Blood Pressure [Right Upper Arm] Pulse Oximetry Oxygen Delivery Method Room Air Hospitalist - H&P: Result Labs Labs: Short CBC 04/29/24 Range/Units 02:10 WBC 11.07 H (4.50-11.00) K/uL Hgb 17.0 H (12.0-16.0) gm/dL Hct 52.0 H (33.0-51.0) % Plt Count 196 (140-440) K/uL [facility] 04/29/24 02:10 Sodium 139 Potassium 3.7 Chloride 108 Carbon Dioxide 21 BUN 26 H Creatinine 0.5 Glucose 117 H Calcium 9.1 Assessment and Plan Assessment and plan (1) Febrile urinary tract infection: Status: Acute (2) Horseshoe kidney: Status: Acute (3) Mild intellectual disability: Status: Acute (4) Neurogenic bladder: Status: Acute (5) Spina bifida: Status: Acute (6) Paraplegia: Status: Acute (7) Depression: Status: Acute (8) Hydronephrosis with infection: Status: Acute Plan # UTI with sepsis # Mild to moderate b/l Hydronephrosis # Non ostructive nephrolithiasis. # Neurogenic bladder requiring self cath - pt is presenting with change in mental status, fever, nausea and vomiting. Recent follow up with urology and was started on abx yesterday. - repeat UA and change abx to ceftriaxone 2 g daily - consult urology in am regarding mildly increased hydronephrosis seen on CT scan. - follow up blood and urine cultures # Depression # h/o spinal Bifida # h/o paraplagia - review meds after reconciled [facility]. # DVT proph - [facility] Telehealth: Statement Statement Telehealth Visit: Today's History and Physical is provided via interactive telehealth by Aide Ortiz MD.? Patient is located at [facility].? Provider is located at [facility].? Nursing staff assisted with the patient's exam. The visit being done today meets criteria for a telehealth visit and the patient or patient?s parent/guardian is aware the visit is a telehealth visit. Camera Start Time: 05:04 Camera End Time: 05:16
[2024-04-29] MEDS: cefTRIAXone 2 GM in 0.9 % SODIUM CHLORIDE Mini-bag 100 ML IVPB (06:26)
[2024-04-29] MEDS: 0.9 % SODIUM CHLORIDE 1000 ml 1,000 ML 100 ML IV (06:26)
[2024-04-29 06:54] LABS: Appearance Urine Slightly Cloudy (Clear); Bilirubin Urine Negative (Negative); Blood Urine 1+ (Negative); Color Urine Yellow (Yellow); Glucose Urine Negative (Negative); Ketones Urine Negative (Negative); Leukocyte Esterase Urine Trace (Negative); Nitrite Urine Negative (Negative); Protein Urine Negative (Negative); Urobilinogen Urine 0.2 (0.2-1.0); pH Urine 5.5 (5.0-8.5)
--- NOTE | 2024-04-29 07:02 | PC.NURSE ---
Pt admitted to floor at 03:55. Pt alert and oriented to self only. Pt denies pain, chest pain, SOB, N/V. Pt is paraplegic and was turned and repositioned in bed but uses her own power chair at home during day. Pt's Aunt Kecia reports she will go and get the power chair to bring back to the hospital. Pt had two soft/loose bowel movements. Pt was straight catheterized with 550 ml output, tolerated well.
[2024-04-29 07:13] LABS: Squamous Epithelial Cell Urine Few (None-Few)
--- NOTE | 2024-04-29 07:36 | PM.IMPN1 ---
Progress Note: A&P Assessment and plan (1) Febrile urinary tract infection: Problem details: -UA slightly cloudy, trace LE, negative nitrate, WBC 10-25, no bacteria - questionable UTI, await culture, continue empiric antibiotic therapy -fever 100? at highest, mild leukocytosis with left shift, lactate 1.1, procalcitonin 0.53 -CT shows Bladder calculi. Gas within the bladder lumen, c/w possible acute cystitis. No CXR obtained but no c/o cough, SOB, triple swab negative -continue ceftriaxone 2g Q 24 hours, previous urine cultures show sensitivities to this -BC x1 and UC pending -will obtain CXR Status: Acute (2) Hydronephrosis with infection: Problem details: -CT shows probable mild interval increase in degree of mild to moderate bilateral hydronephrosis, although no obstructing calculi are definitively identified -consider further imaging if necessary Status: Acute (3) Horseshoe kidney: Problem details: -CT shows Horseshoe kidney with multiple bilateral renal calculi including prominent staghorn calculus at the left lower pole measuring 2.1 cm Status: Acute (4) Mild intellectual disability: Problem details: -noted. Care team consists of aunt who lives with her, [facility] care, and a [facility] case packer, Alison Status: Acute (5) Spina bifida: Problem details: -noted Status: Acute (6) Paraplegia: Problem details: -noted. Frequent positional changes, offloading, skin barrier cream as needed Status: Acute (7) Neurogenic bladder: Problem details: -noted, complicating above, history of recurrent UTIs -continue oxybutynin -continue straight cath Status: Acute (8) Abdominal pain: Problem details: -LUQ, worse with deep breath and palpation -CT without acute findings. No known ulcerative history. Mild nausea without vomiting -manage nausea, trial Tylenol for pain, PPI. Monitor Status: Acute Time Spent With Patient Total time spent: Reassessment following admission requiring further studies and management of acute findings. Total time spent caring for the patient today was 45 minutes. This includes time spent for the visit reviewing the chart, time spent during the visit, time spent after the visit and documentation and planning in coordination of care. Subjective Date Seen: 04/29/24 Interval history: This patient was admitted earlier this morning by our overnight hospitalist service. Is seen with nurse at bedside. Reporting pain under the left lower rib cage, worse with deep breath and with palpation. Noted in ED. Nauseous but has not vomited. Denies headache or dizziness. Admitted with UTI, does not quite fit sepsis criteria. Has been tachycardic, remains mildly febrile. Blood pressure stable. Lactate WNL. Elevated procalcitonin. Exam Narrative: Exam Narrative: PHYSICAL EXAM General: Appropriately conversant, NAD Cardiovascular: Tachycardic. No pitting edema Pulmonary: CTA bilaterally without rhonchi, rales, expiratory wheezes. No dyspnea on RA Abdominal: Soft, nondistended, tender LUQ Neurological: Alert, currently answering questions appropriately, cranial nerves intact, no focal findings Extremities: Bilateral lower extremity deformities noted, chronic. Neurovascularly intact Skin: Warm, dry. Const: Vital Signs, click to edit/add: Vital Signs - 24 hr 04/29/24 01:26 04/29/24 01:32 04/29/24 01:51 Temperature 100.0 F H 100.0 F H Pulse Rate 123 H Pulse Rate [Right Pulse Oximeter] 125 H 127 H Respiratory Rate 20 20 20 Blood Pressure 113/71 Blood Pressure [Le ft Arm] 122/69 Blood Pressure [Ri ght Upper Arm] 107/76 Pulse Oximetry 99 95 99 Oxygen Delivery Me thod Room Air Room Air 04/29/24 02:11 04/29/24 02:13 04/29/24 02:32 Temperature Pulse Rate 128 H 126 H Pulse Rate [Right Pulse Oximeter] Respiratory Rate 20 20 Blood Pressure 122/69 118/82 Blood Pressure [Le ft Arm] Blood Pressure [Ri ght Upper Arm] Pulse Oximetry 94 99 97 Oxygen Delivery Me thod 04/29/24 03:46 04/29/24 03:54 04/29/24 04:12 Temperature 99.5 F 99.5 F 99.7 F H Pulse Rate Pulse Rate [Right Pulse Oximeter] 115 H 115 H 128 H Respiratory Rate 20 20 20 Blood Pressure Blood Pressure [Le ft Arm] 114/65 Blood Pressure [Ri ght Upper Arm] 118/74 118/74 Pulse Oximetry 97 96 Oxygen Delivery Me thod Room Air Room Air 04/29/24 04:12 Temperature Pulse Rate Pulse Rate [Right Pulse Oximeter] Respiratory Rate 20 Blood Pressure Blood Pressure [Le ft Arm] Blood Pressure [Ri ght Upper Arm] Pulse Oximetry Oxygen Delivery Me thod Room Air Labs Labs: Laboratory Results - last 24 hr 04/29/24 04/29/24 04/29/24 01:25 02:10 06:47 WBC 11.07 H RBC 5.65 H Hgb 17.0 H Hct 52.0 H MCV 92 MCH 30 MCHC 33 RDW Coeff of Kimber 12.6 Plt Count 196 Neut % (Auto) 88.3 H Lymph % (Auto) 4.1 L [place] % (Auto) 6.7 Eos % (Auto) 0.6 Baso % (Auto) 0.1 Neut # (Auto) 9.80 H Lymph # (Auto) 0.50 L [place] # (Auto) 0.70 Eos # (Auto) 0.10 Baso # (Auto) 0.00 Abs Immat Gran (auto) 0.00 Imm/Tot Granulo (auto) 0.2 Sodium 139 Potassium 3.7 Chloride 108 Carbon Dioxide 21 Anion Gap 10 BUN 26 H Creatinine 0.5 Estimated GFR 137 Glucose 117 H Lactate 1.1 Calcium 9.1 Procalcitonin 0.53 H Urine Color Yellow Urine Appearance Slightly Cloudy A Urine pH 5.5 Ur Specific [place] 1.020 Urine Protein Negative Urine Glucose (UA) Negative Urine Ketones Negative Urine Blood 1+ A Urine Nitrite Negative Urine Bilirubin Negative Urine Urobilinogen 0.2 Ur Leukocyte Esterase Trace A Urine RBC 2-5 A Urine WBC 10-25 A Ur Squamous Epith Cells Few Urine Bacteria None SARS-CoV-2 (PCR) Negative SARS-CoV-2 Influenza Type A (PCR) Negative PCR FLU A Influenza Type B (PCR) Negative PCR FLU B RSV (PCR) Negative PCR RSV
[2024-04-29] MEDS: 0.9 % SODIUM CHLORIDE 1000 ml 1,000 ML 500 ML IV (09:34)
[2024-04-29] MEDS: ACETAMINOPHEN 325 MG TABLET 650 MG PO ×2 (09:53→15:59)
[2024-04-29] MEDS: ONDANSETRON 2 MG/ML inj 4 MG IVP (09:53)
[2024-04-29] MEDS: oxyBUTYnin chloride 5 MG TABLET PO ×2 (09:54→22:54)
[2024-04-29] MEDS: POTASSIUM CHLORIDE 10 MEQ CAPSULE ER PO ×2 (09:54→22:54)
[2024-04-29] MEDS: PANTOPRAZOLE SODIUM 40 MG INJ IVP (09:54)
--- NOTE | 2024-04-29 12:25 | CRLHL7_ITS ---
For Patients: As a result of the Century Cures Act, medical imaging exams and procedure reports are released immediately into your electronic medical record. You may view this report before your referring provider. If you have questions, please contact your health care provider. INDICATION: Chest pain. TECHNIQUE: Chest radiograph, 1 view. COMPARISON: None. FINDINGS: Cardiovascular/Mediastinum: Normal heart size. Unremarkable. Lungs: Low lung volumes limit evaluation. No focal consolidation. Airways: Trachea remains midline. Pleura: No pleural effusions or pneumothorax. Bones: No acute osseous abnormalities. Partially visualized lumbar spinal fixation Upper abdomen: Unremarkable. IMPRESSION: No acute cardiopulmonary process. No acute displaced rib fractures Dictated by Jairo Haney MD @ 04/29/2024 1:08:29 PM (Electronically Signed)
--- NOTE | 2024-04-29 16:19 | PC.SOCIAL ---
Discharge planning: Social work attempted to meet with the pt today to discuss early discharge planning. Pt was sleeping/resting for most of the day today. Social work will attempt to meet with pt again tomorrow. Social work to follow-up as needed.
--- NOTE | 2024-04-29 16:31 | PC.NURSE ---
shift note: pt temp 101.9 axillary. pt appears flushed and tired. frequent loose stools. approx 5 total since 0800. po tylenol given. Dr. Ojeda and charge nurse Mini updated on pt's status. pt strght cath for 350cc cloudy dk yellow urine. order for cdiff placed and sample collected. No further orders at this time
[2024-04-29 17:50] LABS: C.Difficile Negative (Negative); CDIFFEPI 027 PRESUMPTIVE NEGATIVE (Negative)
[2024-04-29] MEDS: 0.9 % SODIUM CHLORIDE 1000 ml 1,000 ML 125 ML IV (19:21)
--- NOTE | 2024-04-29 20:12 | PC.NURSE ---
shift note: pt with elevated temps as high as 101.9. pt flushed and sleepy. pt has frequent loose stools. pt straight cath using sterile technique x2 and bladder scanned x3. pt medicated for nausea and epigastric pain this a.m. Pt medicated with prn tylenol for elevated temps. LS remain clr. cont sats average >92%. pt refused meal x3. Pt's skin intact but noted to have bright pink tint to bilat u/e, pt drinking water and juice. Dr. Goldman and Dr. Ojeda updated throughout the day with pt's condition. IV to Lt hand placed. Alison pt's guardian updated late a.m on pt's condition. Tangela pt's home care nurse updated this breann on pt's condition. Report given to Tanisha YAÑEZ.
--- NOTE | 2024-04-29 20:55 | PC.NURSE ---
shift note: pt temp @ 1559 axillary 101.9. pt asked to pull personal blanket to waist to help decrease temp. pt states No! It's my body. Explained to pt that she needed to turn down blanket partially to help decrease body temp due to high temperature. Pt reassured that bond underwriter would check temp in 30 mins to see if it was decreasing and pt could resume blanket covering body up to her head. Pt agreed to this.
[2024-04-30] VITALS (7 sets, daily range): BP systolic 109–131; BP diastolic 54–77; PULSE 75–107; RESP 16–20; TEMP 36.8–37.4; O2SAT 95–100
[2024-04-30] MEDS: 0.9 % SODIUM CHLORIDE 1000 ml 1,000 ML 125 ML IV (03:09)
[2024-04-30] MEDS: cefTRIAXone 2 GM in 0.9 % SODIUM CHLORIDE Mini-bag 100 ML IVPB (06:21)
[2024-04-30 06:50] LABS: Hematocrit 40.7 % (33.0-51.0); Hemoglobin* 13.2 gm/dL (12.0-16.0); Mean Corpuscular HGB Conc 32 gm/dL (32-36); Mean Corpuscular Hemoglobin 30 pg (26-34); Mean Corpuscular Volume 94 fL (80-100); Platelet Count* 140 K/uL (140-440); Red Blood Count 4.34 m/uL (4.00-5.20); White Blood Count* 4.69 K/uL (4.50-11.00)
[2024-04-30 07:01] LABS: Slide Review Reflex No
[2024-04-30 07:02] LABS: Chloride* 114 mmol/L (96-114)
[2024-04-30 07:03] LABS: Sodium* 139 mmol/L (135-149)
[2024-04-30 07:06] LABS: Blood Urea Nitrogen* 15 mg/dL (5-24); Calcium* 7.7 mg/dL (8.4-10.6); Creatinine* 0.5 mg/dL (0.5-1.5); Estimated Glomerular Filt Rate 137 ml/min; Glucose* 78 mg/dL (60-115)
[2024-04-30 07:27] LABS: Potassium* 2.3 mmol/L (3.6-5.1)
[2024-04-30 07:38] LABS: Anion Gap 8 mEq/L (7-15); Carbon Dioxide* 17 mmol/L (20-32)
--- NOTE | 2024-04-30 07:40 | PC.NURSE ---
Shift Note: HR has been mildly tachycardic, low 100's. BP's WNL and pt has been afebrile. Denies pain. Resistant to planning straight cath timing, pt rolled eyes, glared, and told bond writer to get out of my room. This occurred a second time when bond writer offered to reposition pt. Pt was approached Q2h throughout the shift and continually refused to reposition off her back. Pt educated on risks of pressure injury and pt verbalized understanding. Loose stool x1. Straight cathed at 0620, a moderate amount of sediment was noted at the end of urine stream. No blood noted in relation to straight cath, although pt is currently menstruating.
[2024-04-30 08:01] LABS: Potassium* 3.2 mmol/L (3.6-5.1)
[2024-04-30] MEDS: SODIUM CHLORIDE 0.9 % (FLUSH) 10 ML SYRINGE 5 ML IVF ×2 (09:28→21:10)
[2024-04-30] MEDS: oxyBUTYnin chloride 5 MG TABLET PO ×2 (09:28→21:10)
[2024-04-30] MEDS: PANTOPRAZOLE SODIUM 40 MG INJ IVP (09:28)
[2024-04-30] MEDS: POTASSIUM BICARB 25 MEQ EFFERVESCENT TAB PO ×2 (09:28→10:16)
[2024-04-30] MEDS: POTASSIUM CHLORIDE 10 MEQ CAPSULE ER PO ×2 (09:28→21:10)
--- NOTE | 2024-04-30 10:21 | NUTR.NU ---
RDN with nutrition screen related to positive skin risk. Patient admitted for hydronephrosis and UTI positive. Past medical history includes but not limited to spina bifida, paraplegia, mild intellectual disability, neurogenic bladder, depression, and GERD. Current weight is 146 lbs 7oz; per weight history weight has been stable recently. Current diet is Regular. No meal intakes yet since admit. No nutrition interventions at this time due to stable weight. RDN will continue to monitor and follow up prn.
--- NOTE | 2024-04-30 10:57 | P.IMPN_ITS ---
Progress Note: A&P Assessment and plan (1) Febrile urinary tract infection: Problem details: -UA slightly cloudy, trace LE, negative nitrate, WBC 10-25, no bacteria - questionable UTI, await culture, continue empiric antibiotic therapy -fever 100? at highest, mild leukocytosis with left shift, lactate 1.1, procalcitonin 0.53 -CT shows Bladder calculi. Gas within the bladder lumen, c/w possible acute cystitis. No CXR obtained but no c/o cough, SOB, triple swab negative -continue ceftriaxone 2g Q 24 hours, previous urine cultures show sensitivities to this 04/30: -leukocytosis resolved, BC x1 NGTD. Tachycardia resolved. Last fever 101.5? at 1700 on 04/29 -UC growing Gram-positive cocci, preliminary, remains pending -CXR shows no acute cardiopulmonary process Status: Acute (2) Hydronephrosis with infection: Problem details: -CT shows probable mild interval increase in degree of mild to moderate bilateral hydronephrosis, although no obstructing calculi are definitively identified -consider further imaging if necessary Status: Acute (3) Horseshoe kidney: Problem details: -CT shows Horseshoe kidney with multiple bilateral renal calculi including prominent staghorn calculus at the left lower pole measuring 2.1 cm Status: Acute (4) Mild intellectual disability: Problem details: -noted. Care team consists of aunt who lives with her, [facility] care, and a [facility] appointed guardian, Alison Status: Acute (5) Spina bifida: Problem details: -noted Status: Acute (6) Paraplegia: Problem details: -noted. Frequent positional changes, offloading, skin barrier cream as needed Status: Acute (7) Neurogenic bladder: Problem details: -noted, complicating above, history of recurrent UTIs -continue oxybutynin -continue straight cath -recommend outpatient follow-up with Urology, consideration for suprapubic catheter if not previously addressed Status: Acute (8) Hypokalemia: Problem details: -initial potassium 2.3, repeated is 3.2 -normally on 10 mEq b.i.d.. Additional 25 mEq potassium bicarbonate x2 ordered Status: Acute (9) Abdominal pain: Problem details: RESOLVED -LUQ, worse with deep breath and palpation -CT without acute findings. No known ulcerative history. Mild nausea without vomiting -manage nausea, trial Tylenol for pain, PPI. Monitor Status: Resolved Plan Awaiting urine culture results. Continue IV antibiotics with plan to transition to oral once sensitivities are available and discharge to home. Time Spent With Patient Total time spent: Total time spent caring for the patient today was 45 minutes. This includes time spent for the visit reviewing the chart, time spent during the visit, time spent after the visit and documentation and planning in coordination of care. Subjective Date Seen: 04/30/24 Interval history: Patient is seen sitting up in bed this morning. Appears brighter and feeling better. LUQ abdominal pain has resolved. No further nausea. Tolerating orals without vomiting. Few loose stools with history of same. C difficile negative. Last fever of 101.5? at 1700 last night. Tachycardia improved overnight, resolved this morning. Leukocytosis resolved. Blood culture x1 NGTD. Urine culture growing Gram- positive cocci otherwise remains pending. C difficile negative. Stool culture pending. Exam Narrative: Exam Narrative: PHYSICAL EXAM General: Alert, smiling, pleasant, NAD Cardiovascular: RRR. No pitting edema Pulmonary: CTA bilaterally without rhonchi, rales, expiratory wheezes. No dyspnea on RA Abdominal: Soft, nondistended, NTTP Neurological: Alert, currently answering questions appropriately, cranial nerves intact, no focal findings Extremities: Bilateral lower extremity deformities noted, chronic. Neurovascularly intact Skin: Warm, dry. Const: Vital Signs, click to edit/add: Vital Signs - 24 hr 04/29/24 11:00 04/29/24 15:00 04/29/24 15:59 Temperature 100.2 F H 100.3 F H 101.9 F H Pulse Rate [Right Pulse Oximeter] 134 H 121 H Respiratory Rate 20 16 Blood Pressure [Le ft Arm] 106/48 L 105/55 L Blood Pressure [Ri ght Arm] Pulse Oximetry 97 97 Oxygen Delivery Me thod Room Air Room Air 04/29/24 17:18 04/29/24 21:06 04/29/24 23:00 Temperature 101.5 F H 99.2 F Pulse Rate [Right Pulse Oximeter] 125 H 99 Respiratory Rate 16 18 Blood Pressure [Le ft Arm] Blood Pressure [Ri ght Arm] 98/50 L Pulse Oximetry 97 Oxygen Delivery Me thod Room Air 04/29/24 23:00 04/30/24 03:09 04/30/24 07:00 Temperature 99.2 F 99.3 F Pulse Rate [Right Pulse Oximeter] 125 H 107 H 76 Respiratory Rate 16 20 20 Blood Pressure [Le ft Arm] 105/55 L Blood Pressure [Ri ght Arm] 98/50 L 111/67 Pulse Oximetry 97 95 Oxygen Delivery Me thod Room Air Room Air 04/30/24 08:00 Temperature 99.1 F Pulse Rate [Right Pulse Oximeter] 76 Respiratory Rate 20 Blood Pressure [Le ft Arm] Blood Pressure [Ri ght Arm] 109/61 Pulse Oximetry 100 Oxygen Delivery Me thod Room Air Labs Labs: Laboratory Results - last 24 hr 04/29/24 04/30/24 04/30/24 Unknown 06:24 07:44 WBC 4.69 RBC 4.34 Hgb 13.2 Hct 40.7 MCV 94 MCH 30 MCHC 32 Plt Count 140 Sodium 139 Potassium 2.3 L* 3.2 L Chloride 114 Carbon Dioxide 17 L Anion Gap 8 BUN 15 Creatinine 0.5 Estimated GFR 137 Glucose 78 Calcium 7.7 L Stl C. diff Tox B Gene Negative Stl C. diff [id number] PRESUMPTIVE NEGATIVE
[2024-04-30] MEDS: POTASSIUM CHLORIDE 10 MEQ CAPSULE ER 30 MEQ PO (18:18)
--- NOTE | 2024-04-30 19:17 | PC.NURSE ---
15-19: The patient is pleasant and cooperative with cares. Incontinent of 1 small BM this shift. Straight cath completed with no issues for 300cc. The patient is eating dinner in bed sitting up, offered to get up to her wheelchair, but the patient refused. VSS on RA, afebrile. No complaints of pain per the patient. Claudia YAÑEZ BSN
[2024-04-30] MEDS: ENOXAPARIN 40 MG/0.4 ML INJ SUBCUT (21:10)
[2024-05-01] VITALS (7 sets, daily range): BP systolic 103–109; BP diastolic 54–69; PULSE 59–84; RESP 16–18; TEMP 36.6–36.9; O2SAT 96–99
[2024-05-01] MEDS: cefTRIAXone 2 GM in 0.9 % SODIUM CHLORIDE Mini-bag 100 ML IVPB (05:45)
[2024-05-01 06:41] LABS: Hematocrit 35.5 % (33.0-51.0); Hemoglobin* 11.6 gm/dL (12.0-16.0); Mean Corpuscular HGB Conc 33 gm/dL (32-36); Mean Corpuscular Hemoglobin 30 pg (26-34); Mean Corpuscular Volume 93 fL (80-100); Platelet Count* 121 K/uL (140-440); Red Blood Count 3.81 m/uL (4.00-5.20); White Blood Count* 4.35 K/uL (4.50-11.00)
[2024-05-01 06:54] LABS: Slide Review Reflex No
--- NOTE | 2024-05-01 07:03 | PC.NURSE ---
End of shift [id number]: Pleasant and cooperative with cares. Denies any pain or SOB this shift. Straight cath completed x 2 this shift per orders, urine was clear, straw in color with normal odor. Patient able to sit self up in bed and turn with minimal assistance, declined to transfer to chair or wheelchair. Continues to be menstruating, patient unsure which day was onset of cycle. Louisa cares completed and utilized large tabbed brief. Incontinent of bowels.
[2024-05-01 07:07] LABS: Chloride* 112 mmol/L (96-114); Potassium* 3.5 mmol/L (3.6-5.1); Sodium* 138 mmol/L (135-149)
[2024-05-01 07:09] LABS: Creatinine* 0.4 mg/dL (0.5-1.5); Estimated Glomerular Filt Rate 144 ml/min
[2024-05-01 07:10] LABS: Anion Gap 6 mEq/L (7-15); Blood Urea Nitrogen* 10 mg/dL (5-24); Calcium* 8.4 mg/dL (8.4-10.6); Carbon Dioxide* 20 mmol/L (20-32); Glucose* 70 mg/dL (60-115)
--- NOTE | 2024-05-01 07:38 | P.IMPN_ITS ---
Progress Note: A&P Assessment and plan (1) Febrile urinary tract infection: Problem details: -UA slightly cloudy, trace LE, negative nitrate, WBC 10-25, no bacteria - questionable UTI, await culture, continue empiric antibiotic therapy -fever 100? at highest, mild leukocytosis with left shift, lactate 1.1, procalcitonin 0.53 -CT shows Bladder calculi. Gas within the bladder lumen, c/w possible acute cystitis. No CXR obtained but no c/o cough, SOB, triple swab negative -continue ceftriaxone 2g Q 24 hours, previous urine cultures show sensitivities to this 04/30: -leukocytosis resolved, BC x1 NGTD. Tachycardia resolved. Last fever 101.5? at 1700 on 04/29 -UC growing Gram-positive cocci, preliminary, remains pending -CXR shows no acute cardiopulmonary process - 05/01 BCx1 NGTD, TM 99.1 yesterday morning, clinically improved, awaiting UC results (currently G+ cocci), continue IV ceftriaxone Status: Acute (2) Neurogenic bladder: Problem details: -noted, complicating above, history of recurrent UTIs -continue oxybutynin -continue straight cath -recommend outpatient follow-up with Urology, consideration for suprapubic catheter if not previously addressed Status: Chronic (3) Hypokalemia: Problem details: -initial potassium 2.3, improving with oral replacement/supplementation -Continue home 10 mEq b.i.d.. - Give additional 25 mEq potassium bicarbonate x1 today, recheck in am Status: Acute (4) Pancytopenia: Problem details: - mild, suspect reactionary, follow Status: Acute (5) Hydronephrosis with infection: Problem details: -CT shows probable mild interval increase in degree of mild to moderate bilateral hydronephrosis, although no obstructing calculi are definitively identified -consider further imaging if necessary Status: Acute (6) Horseshoe kidney: Problem details: -CT shows Horseshoe kidney with multiple bilateral renal calculi including prominent staghorn calculus at the left lower pole measuring 2.1 cm Status: Acute (7) Mild intellectual disability: Problem details: -noted. Care team consists of aunt who lives with her, [facility] care, and a [facility] appointed guardian, Alison Status: Chronic (8) Spina bifida: Problem details: -noted Status: Chronic (9) Paraplegia: Problem details: -noted. Frequent positional changes, offloading, skin barrier cream as needed Status: Chronic (10) Abdominal pain: Problem details: RESOLVED -LUQ, worse with deep breath and palpation -CT without acute findings. No known ulcerative history. Mild nausea without vomiting -manage nausea, trial Tylenol for pain, PPI. Monitor Status: Resolved Plan Awaiting urine culture results. Continue IV ceftriaxone with plan to transition to oral once sensitivities are available and discharge to home. Subjective Time Seen by Provider: 07:25 Date Seen: 05/01/24 Interval history: Laina denies any concerns or complaints this morning. She says she feels well. Denies pain. Exam Narrative: Exam Narrative: General: No acute distress. Awake, alert, oriented. Pleasant. No pallor. No jaundice. Oropharynx: Clear. Mucous membranes moist. Cardiovascular: Regular rate and rhythm. No murmurs, gallops, or rubs. Respiratory: Clear to auscultation bilaterally. No wheezes or crackles. Abdomen: Bowel sounds present. Soft, nondistended, nontender. Extremities: Bilateral lower extremity congenital deformities noted. No pedal edema. Const: Vital Signs, click to edit/add: Vital Signs - 24 hr 04/30/24 08:00 04/30/24 11:35 04/30/24 15:00 Temperature 99.1 F 98.8 F 98.4 F Pulse Rate [Right Pulse Oximeter] 76 95 78 Respiratory Rate 20 18 18 Blood Pressure [Ri ght Arm] 109/61 131/77 115/54 L Pulse Oximetry 100 97 100 Oxygen Delivery Me thod Room Air Room Air Room Air 04/30/24 19:00 04/30/24 23:00 04/30/24 23:00 Temperature 98.3 F 98.8 F Pulse Rate [Right Pulse Oximeter] 75 76 76 Respiratory Rate 16 17 17 Blood Pressure [Ri ght Arm] 112/59 L 123/61 Pulse Oximetry 100 96 Oxygen Delivery Me thod Room Air Room Air 05/01/24 03:00 Temperature Pulse Rate [Right Pulse Oximeter] Respiratory Rate 18 Blood Pressure [Ri ght Arm] Pulse Oximetry Oxygen Delivery Me thod Labs Labs: Laboratory Results - last 24 hr 04/30/24 04/30/24 05/01/24 06:24 07:44 05:54 WBC 4.35 L RBC 3.81 L Hgb 11.6 L Hct 35.5 MCV 93 MCH 30 MCHC 33 Plt Count 121 L Sodium 138 Potassium 3.2 L 3.5 L Chloride 112 Carbon Dioxide 17 L 20 Anion Gap 8 6 L BUN 10 Creatinine 0.4 L Estimated GFR 144 Glucose 70 Calcium 8.4
[2024-05-01] MEDS: oxyBUTYnin chloride 5 MG TABLET PO ×2 (09:09→21:21)
[2024-05-01] MEDS: PANTOPRAZOLE SODIUM 40 MG INJ IVP (09:10)
[2024-05-01] MEDS: POTASSIUM CHLORIDE 10 MEQ CAPSULE ER PO ×2 (09:10→21:21)
[2024-05-01] MEDS: SODIUM CHLORIDE 0.9 % (FLUSH) 10 ML SYRINGE 5 ML IVF ×2 (09:16→21:22)
[2024-05-01] MEDS: POTASSIUM CHLORIDE 10 MEQ CAPSULE ER 20 MEQ PO (10:08)
--- NOTE | 2024-05-01 15:53 | PC.NURSE ---
End of Shift: Patient pleasant and cooperative, A&O. VSS, afebrile. SpO2 maintained above 90% on RA. Straight cathed x2 this shift. Patient denies pain this shift. Patient is tolerating regular diet.
[2024-05-01] MEDS: CIPROFLOXACIN 250 MG TABLET PO (17:16)
[2024-05-01] MEDS: ENOXAPARIN 40 MG/0.4 ML INJ SUBCUT (21:21)
--- NOTE | 2024-05-01 23:46 | PC.NURSE ---
Patient alert and orientedx4 all shift. Denies pain this shift. Declined to get out of bed to the chair. Stated that she did not want to. Vital signs stable. Able to communicate needs. Straight cathed as directed.
[2024-05-02 03:00] VITALS: RESP 15
[2024-05-02 06:09] LABS: Hematocrit 34.9 % (33.0-51.0); Hemoglobin* 11.4 gm/dL (12.0-16.0); Mean Corpuscular HGB Conc 33 gm/dL (32-36); Mean Corpuscular Hemoglobin 30 pg (26-34); Mean Corpuscular Volume 93 fL (80-100); Platelet Count* 117 K/uL (140-440); Red Blood Count 3.76 m/uL (4.00-5.20); White Blood Count* 4.98 K/uL (4.50-11.00)
[2024-05-02 06:11] LABS: Slide Review Reflex No
[2024-05-02 06:22] LABS: Chloride* 110 mmol/L (96-114); Potassium* 3.7 mmol/L (3.6-5.1); Sodium* 137 mmol/L (135-149)
[2024-05-02 06:25] LABS: Anion Gap 5 mEq/L (7-15); Blood Urea Nitrogen* 10 mg/dL (5-24); Calcium* 8.5 mg/dL (8.4-10.6); Carbon Dioxide* 22 mmol/L (20-32); Creatinine* 0.4 mg/dL (0.5-1.5); Estimated Glomerular Filt Rate 144 ml/min; Glucose* 79 mg/dL (60-115)
--- NOTE | 2024-05-02 06:26 | PC.NURSE ---
End of shift report [id number]: Alert and oriented x 4. Pleasant and cooperative with cares. Denies any pain or SOB this shift. Straight cath x 2 this shift, urine is clear, straw in color and normal odor.
[2024-05-02] MEDS: CIPROFLOXACIN 250 MG TABLET PO (06:44)
[2024-05-02 08:49] VITALS: BP 112/70; PULSE 82; RESP 18; TEMP 36.8; O2SAT 96
[2024-05-02 09:00] VITALS: PULSE 82; RESP 18
[2024-05-02] MEDS: POTASSIUM CHLORIDE 10 MEQ CAPSULE ER PO (09:38)
[2024-05-02] MEDS: SODIUM CHLORIDE 0.9 % (FLUSH) 10 ML SYRINGE 5 ML IVF (09:39)
[2024-05-02] MEDS: INDAPAMIDE 2.5 MG TABLET 1.25 MG PO (09:39)
[2024-05-02] MEDS: oxyBUTYnin chloride 5 MG TABLET PO (09:39)
--- NOTE | 2024-05-02 10:19 | P.DS_ITS ---
DS: Providers Provider Time Seen by Provider: 08:34 Date Seen: 05/02/24 Date of admission: 04/29/24 03:53 Primary care physician: Ignacia Duran MD Admitting Clinician: Aide Ortiz MD Attending Physician on discharge: Christie Jacob MD Date of Discharge: 05/02/24 DS: Diagnosis Discharge Diagnosis (1) Febrile urinary tract infection: Status: Acute Problem details: -UA slightly cloudy, trace LE, negative nitrate, WBC 10-25, no bacteria - questionable UTI, await culture, continue empiric antibiotic therapy -fever 100? at highest, mild leukocytosis with left shift, lactate 1.1, procalcitonin 0.53 -CT shows Bladder calculi. Gas within the bladder lumen, c/w possible acute cystitis. No CXR obtained but no c/o cough, SOB, triple swab negative -treated with ceftriaxone 2g Q 24 hours, previous urine cultures show sensitivities to this 04/30: -leukocytosis resolved, BC x1 NGTD. Tachycardia resolved. Last fever 101.5? at 1700 on 04/29 -UC growing Gram-positive cocci, preliminary, remains pending -CXR shows no acute cardiopulmonary process - 05/01 BCx1 NGTD, TM 99.1 yesterday morning, clinically improved, awaiting UC results (currently G+ cocci), continue IV ceftriaxone - 05/02 BCx1 NGTD, afebrile, UC grew out enterococcus faecalis, pansensitive, started ciprofloxacin last night. Doing well. Will discharge home with 10 day course of ciprofloxacin. F/u with urologist. (2) Neurogenic bladder: Status: Chronic Problem details: -noted, complicating above, history of recurrent UTIs -continue oxybutynin -continue straight cath -recommend outpatient follow-up with Urology, consideration for suprapubic catheter if not previously addressed (3) Hypokalemia: Status: Resolved Problem details: -initial potassium 2.3, improving with oral replacement/supplementation -Continue home 10 mEq b.i.d.. - Give additional 25 mEq potassium bicarbonate x1 today, recheck in am 12 K 3.7 (4) Pancytopenia: Status: Resolved Problem details: - mild, suspect reactionary (5) Hydronephrosis with infection: Status: Acute Problem details: -CT shows probable mild interval increase in degree of mild to moderate bilateral hydronephrosis, although no obstructing calculi are definitively identified -consider further imaging if necessary (6) Horseshoe kidney: Status: Acute Problem details: -CT shows Horseshoe kidney with multiple bilateral renal calculi including prominent staghorn calculus at the left lower pole measuring 2.1 cm (7) Mild intellectual disability: Status: Chronic Problem details: -noted. Care team consists of aunt who lives with her, [facility] care, and a [facility] appointed guardian, Alison (8) Spina bifida: Status: Chronic Problem details: -noted (9) Paraplegia: Status: Chronic Problem details: -noted. Frequent positional changes, offloading, skin barrier cream as needed (10) Abdominal pain: Status: Resolved Problem details: RESOLVED -LUQ, worse with deep breath and palpation -CT without acute findings. No known ulcerative history. Mild nausea without vomiting -manage nausea, trial Tylenol for pain, PPI. Monitor DS: Summary Hospital Course Hospital Course: Per H&P: Laina Escudero is seen as an Interactive Telehealth visit. Laina Escudero is a 23 year old female with past medical history significant for spina bifida, paraplegia, mild intellectual disability, neurogenic bladder requiring straight cath 4-5 times a day, depression, GERD presented to ED with fevers and nausea/vomiting Pt has h/o spina bifida and paraplegia, neurogenic bladder requiring straight cath 6 times a day. She gets frequent UTIs. Last UTI in january 2024 grew enterobacter cloacae and e coli. Pt at the time of interview was sleeping and refused to participate in interview. She was awake however wished to rest. Pts family member who lives with her was present in the room at the time of interview and provided brief history. Pt is denying any pain any where. No nausea. Did have two BMS since coming to hospital. Unable to obtain further history or ROS from the patient. . Per history from ER provider, pt has been having recurrent UTIS and most recent UA from 04/21 by urology was positive nitrite and ecoli and enterobacter. She was started on cipro and bactrim and her first dose was just a day before coming in. Caregiver called nurse line because pt had been more confused, less responsive and had fever of 102. She was also tachycardic. She was brought to ED for further evaluation. In ED pt was tachycardic with HR in 120s. Workup in the emergency department showed mild leukocytosis with white count of 11.07, hemoglobin 17, hematocrit 52, platelets 196. Sodium 139, potassium 3.7, chloride 108, bicarb 21, BUN 26, creatinine 0.5, glucose 117, lactate 1.1, procalcitonin 0.53 CT scan showed horseshoe kidney with multiple bilateral renal calculi including prominent staghorn calculus at the left lower pole measuring 2.1 cm overall similar to the previous examination with probable mild interval increase in degree of mild to moderate bilateral hydronephrosis, although no obstructing calculi are definitely identified. Bladder calculi. Gas within the bladder lumen correlate for cystitis. Pt was given IV cipro and Iv fluids in ER. Laina was admitted on IV ceftriaxone. She clinically improved. UC grew out pansensitive Enterococcus faecalis. She has a known horseshoe kidney with mild to moderate hydronephrosis, so I avoided nitrofurantoin and have placed her on ciprofloxacin for 10 days for complicated UTI. Would like her to follow-up with her urologist in the next 2 weeks. Time Spent with Patient Time attestation: Total time spent providing and/or coordinating discharge services: 35 minutes, coordination with team, home care, call to guardian, discussion with pharmacist Exam Narrative: Exam Narrative: General: No acute distress. Awake, alert, oriented. Pleasant. No pallor. No jaundice. Oropharynx: Clear. Mucous membranes moist. Cardiovascular: Regular rate and rhythm. No murmurs, gallops, or rubs. Respiratory: Clear to auscultation bilaterally. No wheezes or crackles. Abdomen: Bowel sounds present. Soft, nondistended, nontender. Const: Vital Signs, click to edit/add: Vital Signs - 24 hr 05/01/24 11:45 05/01/24 15:52 05/01/24 16:00 Temperature 97.8 F 98.3 F Pulse Rate [Right Pulse Oximeter] 59 L 84 84 Respiratory Rate 18 18 18 Blood Pressure [Le ft Arm] 108/69 Blood Pressure [Ri ght Arm] 103/56 L Pulse Oximetry 99 98 Oxygen Delivery Me thod Room Air Room Air 05/01/24 20:00 05/01/24 23:00 05/01/24 23:00 Temperature 97.9 F 97.8 F Pulse Rate [Right Pulse Oximeter] 69 61 61 Respiratory Rate 18 16 16 Blood Pressure [Le ft Arm] Blood Pressure [Ri ght Arm] 109/62 103/54 L Pulse Oximetry 98 96 Oxygen Delivery Me thod Room Air 05/02/24 03:00 05/02/24 08:49 05/02/24 09:00 Temperature 98.2 F Pulse Rate [Right Pulse Oximeter] 82 82 Respiratory Rate 15 18 18 Blood Pressure [Le ft Arm] Blood Pressure [Ri ght Arm] 112/70 Pulse Oximetry 96 Oxygen Delivery Me thod Room Air DS: Data Data Completed and Pending Completed studies during hospitalization: Ordering Physician: Jadon Thompson M.D. Date of Service: 04/29/24 Procedure(s): CT abdomen pelvis w con Accession Number(s): [id number] cc: Jadon Thompson M.D.; Ignacia Duran M.D.~ For Patients: As a result of the Cures Act, medical imaging exams and procedure reports are released immediately into your electronic medical record. You may view this report before your referring provider. If you have questions, please contact your health care provider. INDICATION: Kidney infection. TECHNIQUE: CT abdomen and pelvis acquired with 66 cc Omnipaque 370 IV contrast. COMPARISON: CT abdomen and pelvis 02/05/2024. FINDINGS: Lower chest: Unremarkable. Liver: No suspicious hepatic lesion. Gallbladder and bile ducts: No gallstones. No suspicious biliary ductal dilatation. Pancreas: Unremarkable. No mass or inflammation. Spleen: Unremarkable. Normal in size. No masses. Adrenal glands: Unremarkable. No nodules. Kidneys: Horseshoe kidney. Multiple bilateral renal calculi with staghorn calculus at the left lower pole measuring up to 2.1 cm, similar to prior. There is [id number] bilateral hydronephrosis, likely minimally increased compared to prior. No obstructing calculus is evident. No suspicious renal lesion. GI tract: No bowel obstruction. No suspicious bowel wall thickening. Normal appendix. Vasculature: Abdominal aorta is normal in caliber. Mesenteric vasculature patent. Lymph nodes: No suspicious lymphadenopathy. Peritoneum/Abdominal Wall: No ascites or pneumoperitoneum. Pelvis: Air present within the bladder lumen in addition to layering bladder calculi. Bones: Spinal fixation hardware. No acute osseous abnormality evident. IMPRESSION: 1. Horseshoe kidney with multiple bilateral renal calculi including prominent staghorn calculus at the left lower pole measuring 2.1 cm, overall similar to the previous examination with probable mild interval increase in degree of mild to moderate bilateral hydronephrosis, although no obstructing calculi are definitively identified. 2. Bladder calculi. Gas within the bladder lumen. Correlate for cystitis or history of recent instrumentation. Please note that all CT scans at this facility use dose modulation, iterative reconstruction, and/or weight-based dosing when appropriate to reduce radiation dose to as low as reasonably achievable. Dictated by Joshua Edwards MD @ 04/29/2024 3:32:04 AM (Electronically Signed) Ordering Physician: Siria GROVE Date of Service: 04/29/24 Procedure(s): XR chest 1V portable Accession Number(s): [id number] cc: Ignacia Duran M.D.; Siria GROVE~ For Patients: As a result of the Cures Act, medical imaging exams and procedure reports are released immediately into your electronic medical record. You may view this report before your referring provider. If you have questions, please contact your health care provider. INDICATION: Chest pain. TECHNIQUE: Chest radiograph, 1 view. COMPARISON: None. FINDINGS: Cardiovascular/Mediastinum: Normal heart size. Unremarkable. Lungs: Low lung volumes limit evaluation. No focal consolidation. Airways: Trachea remains midline. Pleura: No pleural effusions or pneumothorax. Bones: No acute osseous abnormalities. Partially visualized lumbar spinal fixation Upper abdomen: Unremarkable. IMPRESSION: No acute cardiopulmonary process. No acute displaced rib fractures Dictated by Jairo Haney MD @ 04/29/2024 1:08:29 PM (Electronically Signed) Labs on day of discharge: Labs from last 24 hours 05/02/24 05:46 WBC 4.98 RBC 3.76 L Hgb 11.4 L Hct 34.9 MCV 93 MCH 30 MCHC 33 Plt Count 117 L Sodium 137 Potassium 3.7 Chloride 110 Carbon Dioxide 22 Anion Gap 5 L BUN 10 Creatinine 0.4 L Estimated GFR 144 Glucose 79 Calcium 8.5 Preliminary micro results at discharge 04/29/24 18:19 Stool Culture - Preliminary Stool 04/29/24 02:10 Blood Culture - Preliminary Blood NO GROWTH AFTER 72 HOURS Discharge Plan Discharge Disposition: Home w/ Parent or Adult Date of Admission: 04/29/24 03:53 Attending Provider on Discharge: Christie Jacob Primary Care Provider: Ignacia Duran Condition: Stable Anticipated Discharge Date/Time: 05/02/24 10:25 Discharge Medications: New ciprofloxacin HCl [Cipro] 500 mg tablet 500 mg PO BID 10 Days Qty: 20 0RF Continued oxybutynin chloride 5 mg tablet 5 mg PO BID indapamide 1.25 mg tablet 1.25 mg PO QAM potassium chloride 10 mEq tablet,ER particles/crystals 10 meq PO BID Discontinued ciprofloxacin HCl 500 mg tablet 500 mg PO BID Discharge Orders: Discharge Order (Routine); Ordered 05/02/24 Ordered By: Christie Jacob Additional Instructions: Recommend outpatient follow-up with Urology for consideration of suprapubic cat heter if not already addressed. Resume straight cath 5x/day and as needed. Resume home care as previously ordered. Activity Level: No Restrictions Discharge Diet: Regular Follow Up Appointments: Ignacia Duran MD [Primary Care Provider] - [facility] Info Instructions
[2024-05-02 11:22] VITALS: BP 110/60; PULSE 59; RESP 18; TEMP 36.7; O2SAT 98
--- NOTE | 2024-05-02 15:44 | PC.NURSE ---
Discharge: Patient pleasant and cooperative, A&O. VSS, afebrile. Straight cathed x2 this shift. Tolerating regular diet. IV removed with tip intact. Discharge instructions provided, all questions answered . Discharge to home with home care.
== END 2024-05-02 15:32 | disposition home or self-care (01) | DRG 690 ==
LOC: ED 03:39 → MEDSURG 03:55
PROVIDERS: Physician Assistant; Student in an Organized Health Care Education/Training Program; Admitting Provider Internal Medicine; Emergency Provider Family Medicine; PCP Pediatrics; Visit Provider Internal Medicine
DX: N13.6 Pyonephrosis (principal); G82.20 Paraplegia, unspecified; D61.818 Other pancytopenia; B95.2 Enterococcus as the cause of diseases classified elsewhere; Q63.1 Lobulated, fused and horseshoe kidney; N31.9 Neuromuscular dysfunction of bladder, unspecified; E87.6 Hypokalemia; R10.12 Left upper quadrant pain; R00.0 Tachycardia, unspecified; Z87.442 Personal history of urinary calculi; Z87.440 Personal history of urinary (tract) infections; Q05.9 Spina bifida, unspecified; F70 Mild intellectual disabilities; F32.A Depression, unspecified; Z98.1 Arthrodesis status; Z98.2 Presence of cerebrospinal fluid drainage device
CPT/HCPCS: 36415; 51702; 51798; 71045; 74177; 80048; 81001; 83605; 84132; 84145; 85025; 85027; 87040; 87045; 87046; 87086; 87186; 87427; 87493; 87631; 94761; 99284; 99285; A9270; J0696; J0744; J1650; J2405; J2470; J7030; Q9967

== ENCOUNTER 2024-06-07 15:12 | Emergency (ER) | payer MEDICARE, BC, MEDICAID, SELFPAY ==
[2024-06-07 15:17] VITALS: BP 136/77; PULSE 65; RESP 20; TEMP 36.6; O2SAT 100; BMI 30.3
[2024-06-07 15:52] LABS: Appearance Urine Clear (Clear); Bilirubin Urine Negative (Negative); Blood Urine Negative (Negative); Color Urine Yellow (Yellow); Glucose Urine Negative (Negative); Ketones Urine Negative (Negative); Leukocyte Esterase Urine 3+ (Negative); Nitrite Urine Positive (Negative); Protein Urine Negative (Negative); Urobilinogen Urine 0.2 (0.2-1.0)
--- NOTE | 2024-06-07 15:55 | ED_ITS ---
HPI - Headache General Time Seen by Provider: 15:55 Date Seen: 06/07/24 Chief Complaint: Headache/Migraine Stated Complaint: Headache Time Seen by Provider: 06/07/24 15:52 Source: patient Mode of arrival: wheelchair Limitations: no limitations History of Present Illness HPI Narrative: 23-year-old female who presents today with headache. Patient notes right-sided headache in the right frontal and right occipital area going into the right side of the neck starting earlier today, pain is almost resolved now. When she had the headache it was better when she laid down. No photophobia, no nausea vomiting. Did not taking anything for her headache. Also notes ?cloudy urine?. No fever, no abdominal pain. Related Data Home Medications ?Medication ?Instructions ?Recorded ?Confirmed oxybutynin chloride 5 mg tablet 5 mg PO BID 07/21/22 04/29/24 indapamide 1.25 mg tablet 1.25 mg PO QAM 10/31/23 04/29/24 potassium chloride 10 mEq 10 meq PO BID 10/31/23 04/29/24 tablet,extended release(part/cryst) Previous Rx's ?Medication ?Instructions ?Recorded ciprofloxacin HCl 500 mg tablet 500 mg PO BID 10 days #20 tabs 05/02/24 (Cipro) ciprofloxacin HCl 500 mg tablet 500 mg PO BID #14 tabs 06/07/24 (Cipro) Allergies Allergy/AdvReac Type Severity Reaction Status Date / Time ibuprofen Allergy Intermediate 1 Kidney Verified 10/31/23 19:52 vancomycin Allergy Intermediate Swapnil Verified 10/31/23 19:52 Syndrome latex Allergy Mild Rash Verified 10/31/23 19:52 PFSH PFS Medical History (Updated 06/07/24 @ 17:19 by Fredo Yoder MD) Depression ?F32.A - Depression, unspecified (ICD-10) Paraplegia ?G82.20 - Paraplegia, unspecified (ICD-10) Horseshoe kidney ?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.1 - Lobulated, fused and horseshoe kidney (ICD-10) Mild intellectual disability ?F70 - Mild intellectual disabilities (ICD-10) Neurogenic bladder ?N31.9 - Neuromuscular dysfunction of bladder, unspecified (ICD-10) COVID-19 ?U07.1 - COVID-19 (ICD-10) Spina bifida ?Q05.9 - Spina bifida, unspecified (ICD-10) Surgical History (Updated 06/07/24 @ 17:19 by Fredo Yoder MD) History of spinal fusion ?Z98.1 - Arthrodesis status (ICD-10) H/O wisdom tooth extraction ?K08.409 - Partial loss of teeth, unspecified cause, unspecified class (ICD- 10) Hx of nephrolithotomy with removal of calculi ?Z98.890 - Other specified postprocedural states (ICD-10) ?Z87.442 - Personal history of urinary calculi (ICD-10) S/P DIRECTOR HEDIS shunt ?Z98.2 - Presence of cerebrospinal fluid drainage device (ICD-10) Family History (Updated 04/29/24 @ 02:08 by Jadon Thompson MD) Father Diabetes Mother Bipolar 1 disorder Social History What is your current living situation?: I presently have a place to live Problems where you live: no known problems Problems where you live details: no known problems In the past 12 months, utilities in danger of being shut off: no In past 12 months, lack of transportation kept you from medical appts, meetings, work, or getting things needed for daily living: no In the past 12 mos, have been you worried that your food would run out before you had money to buy more?: never true In the past 12 mos, the food you bought just didn't last and you didn't have money to buy more?: never true Smoking Status: Never smoker Do you use any of these nicotine containing products: None Second hand tobacco smoke exposure: No How often do you have a drink containing alcohol: never AUDIT-C Alcohol total score: 0 Non-prescribed substance use: denies use Caffeine: Yes (Coffee) How often does anyone, including family, friends and others, physically hurt you : never How often does anyone, including family, friends and others, insult or talk down to you: never How often does anyone, including family, friends and others, threaten you with harm: never How often does anyone, including family, friends and others, scream or curse at you: never service: No Exam Narrative: Exam Narrative: General: Well-developed and well-nourished, no acute distress Head: Atraumatic and normocephalic Eyes: Pupils are equal reactive, extraocular motions intact, conjunctiva clear ENT: External nose and ears are normal, posterior pharynx without erythema or exudate Neck: No midline cervical tenderness, full spontaneous range of motion the neck, trachea midline, no adenopathy Heart: Regular rate and rhythm no murmurs or thrills Lungs: Clear to auscultation bilaterally without wheezes or crackles Abdomen: Soft, nontender, nondistended with active bowel sounds Musculoskeletal: No tenderness or edema Neurologic: Awake, alert, and oriented x3, at baseline Psych: Mood and affect are appropriate Skin: No rashes Const: Vital Signs, click to edit/add: Vital Signs - 24 hr 06/07/24 15:17 06/07/24 17:08 Temperature 97.9 F 98.1 F Pulse Rate [Pulse Oximeter] 65 74 Respiratory Rate 20 18 Blood Pressure [Le ft Upper Arm] 136/77 137/88 Pulse Oximetry 100 100 Oxygen Delivery Me thod Room Air Course Course ED Course: Reviewed most recent primary care visit from October 2023 which was follow-up for multiple medical issues, referral for [facility] rehab was made. Patient also has close follow-up with urology and ortho spine to [place]. Patient presents today with concern for headache. This is right-sided, 0 most resolved at this point, and better when she lays down. Patient does have a shunt but symptoms are not consistent with increased intracranial pressure given the patient is almost headache free now, no associated nausea nor vomiting, and pain is better lying down. Nonetheless, due to patient and family concern, CT scan of the head is ordered. They also concerned about cloudy urine with history of urinary tract infection, however no recent fever or systemic signs of infection. Reevaluation(s) Time of Reevaluation #1: 17:15 Reevaluation #1: CT scan of the head panel interpreted by me with shunt in place, ventricles well decompressed, no acute changes. Urinalysis independently interpreted by me nitrate positive with some white cells. Patient will be started on antibiotics, review of culture from April 29 with pansensitive Enterococcus, prior to that had Enterobacter resistant to cephalosporin, cefoxitin, nitrofurantoin with pansensitive E coli. Due to recent resistance pattern, will be started on ciprofloxacin pending cultures. Time of Reevaluation #2: 17:25 Reevaluation #2: Reviewed radiology interpretation of CT scan which also demonstrates changes of suboccipital craniotomy for Chiari malformation. Patient is stable for discharge. Vital Signs Vital signs: Initial Vital Signs Temperature 97.9 F 06/07/24 15:17 Temperature Source Temporal Artery Scan 06/07/24 15:17 Pulse Rate 65 06/07/24 15:17 Pulse Rhythm Regular 06/07/24 15:17 Respiratory Rate 20 06/07/24 15:17 Blood Pressure 136/77 06/07/24 15:17 Blood Pressure Mean 96 06/07/24 15:17 Blood Pressure Position Sitting 06/07/24 15:17 Pulse Oximetry 100 06/07/24 15:17 Vital Signs Temperature 97.9 F 06/07/24 15:17 Pulse Rate 65 06/07/24 15:17 Respiratory Rate 20 06/07/24 15:17 Blood Pressure 136/77 06/07/24 15:17 Pulse Oximetry 100 06/07/24 15:17 Temperature 98.1 F 06/07/24 17:08 Pulse Rate 74 06/07/24 17:08 Respiratory Rate 18 06/07/24 17:08 Blood Pressure 137/88 06/07/24 17:08 Pulse Oximetry 100 06/07/24 17:08 Oxygen Delivery Method Room Air 06/07/24 17:08 Medications Administered Medications: Discontinued Medications Generic Name Dose Route Start Last Admin Trade Name Freq PRN Reason Stop Dose Admin Acetaminophen 650 mg 06/07/24 16:16 06/07/24 16:21 Acetaminophen 325 Mg Tablet PO 06/07/24 16:17 650 mg ONCE ONE Administration MDM - Headache Lab Data Labs: Lab Results 06/07/24 Range/Units 15:32 Urine Color Yellow (Yellow) Urine Appearance Clear (Clear) Urine pH 7.0 (5.0-8.5) Ur Specific Sidney 1.020 (1.000-1.030) Urine Protein Negative (Negative) Urine Glucose (UA) Negative (Negative) Urine Ketones Negative (Negative) Urine Blood Negative (Negative) Urine Nitrite Positive A (Negative) Urine Bilirubin Negative (Negative) Urine Urobilinogen 0.2 (0.2-1.0) Ur Leukocyte Esterase 3+ A (Negative) Urine RBC 0-2 (0-2) Urine WBC 5-10 A (0-5) Ur Squamous Epith Cells Few (None-Few) Urine Bacteria Few A (None) Discharge Plan Discharge Clinical Impression: Headache, DIRECTOR HEDIS (ventriculoperitoneal) shunt status, Complicated urinary tract infection Patient Disposition: Home w/ Parent or Adult Condition: Stable Instructions: Urinary Tract Infection in Women (DC), General Headache (ED) Additional Instructions: Take Tylenol as needed for headache. Take antibiotics as prescribed Prescriptions: New ciprofloxacin HCl [Cipro] 500 mg tablet 500 mg PO BID Qty: 14 0RF No Action oxybutynin chloride 5 mg tablet 5 mg PO BID indapamide 1.25 mg tablet 1.25 mg PO QAM potassium chloride 10 mEq tablet,ER particles/crystals 10 meq PO BID ciprofloxacin HCl [Cipro] 500 mg tablet 500 mg PO BID 10 Days Qty: 20 0RF Follow Up/Referrals: Ignacia Duran MD [Primary Care Provider] - Stand Alone Forms: Regulatory[employer]inder Info Instructions
--- NOTE | 2024-06-07 16:16 | CRLHL7_ITS ---
For Patients: As a result of the Century Cures Act, medical imaging exams and procedure reports are released immediately into your electronic medical record. You may view this report before your referring provider. If you have questions, please contact your health care provider. INDICATION: Headache. TECHNIQUE: Noncontrast CT images of the brain. COMPARISON: None. FINDINGS: Artifact degrades image quality. Right parietal approach shunt catheter terminating in the left frontal horn. The ventricular system is decompressed. No mass effect or midline shift. Cedillo-white differentiation is maintained. No acute intracranial hemorrhage or pathologic extra-axial fluid collection. Chiari malformation. Postsurgical changes of suboccipital craniectomy. No calvarial fracture. The globes are symmetric. Minimal right maxillary sinus mucosal thickening. Mastoid air cells are clear. IMPRESSION: 1. No acute intracranial hemorrhage or mass effect. 2. Right parietal approach shunt catheter. The ventricular system is decompressed. 3. Chiari malformation. Postsurgical changes of suboccipital craniectomy. Please note that all CT scans at this facility use dose modulation, iterative reconstruction, and/or weight-based dosing when appropriate to reduce radiation dose to as low as reasonably achievable. Dictated by Surjit Lu MD @ 06/07/2024 4:56:25 PM (Electronically Signed)
[2024-06-07] MEDS: ACETAMINOPHEN 325 MG TABLET 650 MG PO (16:21)
[2024-06-07 16:55] LABS: Bacteria Urine Few; RBC Urine 0-2 (0-2); Squamous Epithelial Cell Urine Few (None-Few)
[2024-06-07 17:08] VITALS: BP 137/88; PULSE 74; RESP 18; TEMP 36.7; O2SAT 100
[2024-06-07] MEDS: CIPROFLOXACIN 500 MG TABLET PO (17:25)
--- OUTSIDE RECORDS SUMMARY | 2024-06-07 17:48 | XMS_ITS | Clinical Summary ---
Author Organization [facility] Address [place], [place] [address] Care Team Providers Care Pig Furnace Operator Name Role Phone Ignacia Duran MD Primary Care Provider [phone] Allergies Active Allergy Reactions Criticality Noted Date Comments Latex Other - Describe In Comment Field 10/08/2013 Has spina bifida Medications multivitamin (MVI) tablet Take 1 tablet by mouth once daily. 0 4 Active oxybutynin (DITROPAN) 5 mg tabletIndications :Spina bifida of dorsal region (HC) Take 1 tablet by mouth once daily. 90 tablet 0 6 Active medication order composerIndicatio ns:Paraplegia (HC),Spina bifida of thoracic region, unspecified hydrocephalus presence Seat Cushion for Wheelchair 1 Each 7 Active docusate (COLACE) 100 mg capsule Take 100 mg by mouth. Active silver-foam bandage (AQUACEL AG FOAM) 1.2 %- 10 X 12 bndgIndications:S kin infection Apply topically to affected area(s). 10 Each 9 Active naproxen (NAPROSYN) 375 mg tabletIndications :Bursitis of right shoulder Take 1 tablet by mouth 2 times daily with meals. 20 tablet 9 Active Foam Bandage (TENDRA MEPILEX BORDER) 4 X 4 bndgIndications:P ressure injury of left elbow, stage 3 (HC) Apply topically to affected area(s). 10 Each 6 9 Active hydrocolloid dressing 4 X 4 bndgIndications:S kin infection Apply topically to affected area(s). 10 Each 6 9 Active medication order composer Gentamicin 30 mg flush injectable solution 0 9 Active OTHER PEDIATRIC FLUIDS Polymyxin 500,000units/1 L - Gentamicin 400mg/1L - in Normal Saline for irrigation with 30mL one time daily instill into bladder as instructed 9 Active cephalexin (KEFLEX) 500 mg capsule Take 500 mg by mouth. 2 Active Active Problems Problem Noted Date Diagnosed Date Blister (nonthermal), right thigh, sequela 06/21 Wound infection 06/21/2019 Decubitus ulcer of left elbow, unstageable 05/10 Open back wound, left, subsequent encounter 04/25 Moderate episode of recurrent major depressive d isorder 11/23/2018 S/P REGIONAL FLATBED TRUCK DRIVER shunt 04/29/2011 UTI (urinary tract infection) 04/24/2011 Paraplegia 02/21/2009 Spina bifida of dorsal region 02/21/2009 Resolved Problems Problem Noted Date Diagnosed Date Resolved Date Adjustment disorder with mix ed disturbance of emotions and conduct 07/04/2011 11/23/2018 Immunizations Name Administration Dates Next Due DTaP 01/18/2008,05/06/2005 [id number] (Pediarix) 05/27/2003,03/21/2003,0 2002 HIB PRP-T (ActHIB,Hiberix) 05/27/2003,03/21/2003 [...] Paying Living Expenses Not on file 05/22/2021 Comments No Sex and Gender Information Value Date Recorded Sex Assigned at Not on file Legal Sex Female 6:29 AM FAMILY HEALTH NURSE PRACTITIONER Gender Identity Not on file Sexual Orientation Not on file 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 Industry 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2 kg (135 lb) 07/03/2015 5:27 PM FAMILY HEALTH NURSE PRACTITIONER Height - - Body Mass Index - [...] 01/16/2025 01/16/2015, 01/16/2015 Pneumococcal series for age 6-49 Aged Out 05/27/2003, 03/21/2003, 2002 No longer eligible based on patient's age to complete this topic Tdap Completed 01/16/2015, 01/16/2015 Meningococcal series for age 11-21 Completed 06/17/2019, 01/16/2015 Insurance MEDICAID [facility] MEDICARE PART A HB ONLY MEDICARE PART B HB ONLY MEDICARE PB ONLY MEDICAID [id number] [place] [address] Advance Directives Documents on File Type Date Recorded Patient Non Destructive Evaluation Technician Expl anation Power of Retail Field Merchandiser 06/24/2023 1:00 PM Care Teams Pig Furnace Operator Relationship Specialty Start Date End Date Ignacia Duran MD PCP - General Pediatric 10/07/19
--- OUTSIDE RECORDS SUMMARY | 2024-06-07 17:49 | XMS_ITS | Encounter Summary ---
Author Organization [facility] Address [address] [place] [address] Care Team Providers Care Hoop Puncher Name Role Phone Carlos Joyner MD Unavailable [phone] Jadon Murray MD Unavailable [phone] Maru Villagomez RN Unavailable Unavailable Ang Slade MD Unavailable [phone] Carlos Joyner MD Unavailable [phone] Ang Slade MD Unavailable [phone] Lakshmi Wilhelm-C Unavailable [phone] Heladio Willoughby MD Primary Care Provider [phone] Heladio Willoughby MD Unavailable Alissa Perez PA-C Unavailable [phone] Lakshmi Wilhelm-C Unavailable [phone] Aidee Valero PA-C Unavailable [phone] Encounter Details Date Type Department Care Team (Late st Contact Info) Description 08/18/2023 [facility] [facility] [id number] [place] [phone] Analisa Conner Social History Tobacco Use [...] st Contact Info) Description 06/15/2024 9:30 AM AMMONIA REFRIGERATION WORKER Office Visit [address] [address] Xu Prince MD [address] [place] [address] [id number] 06/15/2024 2:30 PM AMMONIA REFRIGERATION WORKER Office Visit [facility] [address] [place] [address] Andreea Cruz PA-C [address] [place], [place] [phone] 07/21/2024 4:00 PM AMMONIA REFRIGERATION WORKER [facility] [address] [phone] [place] [address] [address] [id number] documented as of this encounter Visit Diagnoses Not on filedocumented in this encounter Care Teams Hoop Puncher Relationship Specialty [place] [address] [address] [id number] PCP - General 03/05/23 Carlos Joyner MD [address] [place] [address] Urology 12/09/19 Jadon Murray MD [facility] [address] [address] Referring Physician Pediatric Surgery 12/09/19 Maru Villagomez, OTILIO Registered Nurse 12/10/19 Ang Slade MD [address] [place] [address] Urology 04/24/20 Carlos Joyner MD [address] [place] [address] Assigned Surgical Provider 12/24/20 Ang Slade MD [address] [address] Urology 12/18/22 Lakshmi Wilhelm PA-C [address] [place] [address] [id number] Physician Senior Security Analyst Urology 02/03/23 [place] [address] [place] [address] Assigned PCP 02/06/23 Alissa Perez PA-C [address] [place] [address] [id number] Physician Senior Security Analyst Surgery 09/04/23 Lakshmi Wilhelm PA-C [address] [place] [address] [id number] Physician Senior Security Analyst Urology 09/16/23 Aidee Valero PA-C [address] [place] [address] [id number] Assigned Musculoskeletal Provider 04/17/24 Tanisha Marlow 4120 [facility] [address] 03/30/24 documented as of this encounter
--- OUTSIDE RECORDS SUMMARY | 2024-06-07 17:49 | XMS_ITS | Encounter Summary ---
Author Organization [facility] Address [address] [place] [address] Care Team Providers Care Microelectronics Assembler Name Role Phone Carlos Joyner MD Unavailable [phone] Jadon Murray MD Unavailable [phone] Maru Villagomez RN Unavailable Unavailable Ang Slade MD Unavailable [phone] Carlos Joyner MD Unavailable [phone] Ang Slade MD Unavailable [phone] Lakshmi Wilhelm-C Unavailable [phone] Heladio Willoughby MD Primary Care Provider [phone] Heladio Willoughby MD Unavailable Alissa Perez PA-C Unavailable [phone] Lakshmi Wilhelm-C Unavailable [phone] Aidee Valero PA-C Unavailable [phone] Reason for Visit * Reason Onset Date Comments Call Back 04/21/2024 Pt still having UTI Symptoms. They are wanting to see about getting a new antibiotic. Please call Nurse treatment manager at [phone]. Please call Yamini. As they would like to get something done prior to the holiday. Thanks Encounter Details Date Type Department Care Team ([facility] st Contact Info) Description 04/21/2024 Telephone [facility] [address] [place] [address] Carlos Joyner MD [address] [place] [address] Call Back (Pt still having UTI Symptoms. They are wanting to see about getting a new antibiotic. Please call Nurse treatment manager at [phone]. Please call Yamini. As they would like [...] getting a new antibiotic. Please call Nurse treatment manager at [phone]. Please call Yamini. As they would like to get something done prior to the holiday. Thanks Action Taken: Other: uro Travel Screening: Not Applicable Date of Service: ENT SEWING MACHINE OPERATOR documented in this encounter Plan of Treatment Upcoming Encounters Date Type Department Care Team (Late st Contact Info) Description 06/15/2024 9:30 AM GARMENT SEWING MACHINE OPERATOR Office Visit [address] [phone] Xu Prince MD [address] [place] [phone] 06/15/2024 2:30 PM GARMENT SEWING MACHINE OPERATOR Office Visit [facility] [address] [place] [address] Andreea Cruz PA-C [address] [place] [address] 07/21/2024 4:00 PM GARMENT SEWING MACHINE OPERATOR Office Visit [facility] [address] [place] [address] [place] [address] [place], [place] [phone] documented as of this encounter Visit Diagnoses Not on filedocumented in this encounter Care Teams Microelectronics Assembler Relationship Specialty Start [place] [address] [place], [place] [phone] PCP - General 03/05/23 Carlos Joyner MD [address] [place] [address] [phone] Urology 12/09/19 Jadon Murray MD [facility] 2530 [facility] [address] [place] [address] Referring Physician Pediatric Surgery 12/09/19 Maru Villagomez, RN Registered Nurse 12/10/19 Ang Slade MD 420 [facility] [address] [place], [place] [phone] Urology 04/24/20 Carlos Joyner MD [address] [place] [address] [phone] Assigned Surgical Provider 12/24/20 Ang Slade MD 420 [facility] [address] [place], [place] 0[address] Urology 12/18/22 Lakshmi Wilhelm PA-C [address] [place] [address] [id number] Physician Head Gauge Unit Operator Urology 02/03/23 [place] [address] [place] [address] Assigned PCP 02/06/23 Alissa Perez PA-C [address] [place] [address] [id number] Physician Head Gauge Unit Operator Surgery 09/04/23 Lakshmi Wilhelm PA-C [address] [place] [address] Physician Head Gauge Unit Operator Urology 09/16/23 Aidee Valero, [facility] [address] [place] [address] Assigned Musculoskeletal Provider 04/17/24 Tanisha Marlow 4120 [facility] [address] 03/30/24 documented as of this encounter
--- OUTSIDE RECORDS SUMMARY | 2024-06-07 17:49 | XMS_ITS | Encounter Summary ---
Author Organization [place] Address [address] [place] [address] Care Team Providers Care Assembler Show Motor Name Role Phone Carlos Joyner MD Unavailable [phone] Jadon Murray MD Unavailable [phone] Maru Villagomez RN Unavailable Unavailable Ang Slade MD Unavailable [phone] Carlos Joyner MD Unavailable [phone] Ang Slade MD Unavailable +[phone] Lakshmi Wilhelm PA-C Unavailable [phone] Heladio Willoughby MD Primary Care Provider [phone] Heladio Willoughby MD Unavailable Alissa Perez PA-C Unavailable [phone] Lakshmi Wilhelm PA-C Unavailable [phone] Aidee Valero PA-C Unavailable +[phone] Reason for Visit * Reason Onset Date Comments Appointment 03/09/2024 Encounter Details Date Type Department Care Team (Late st Contact Info) Description 03/09/2024 Telephone [facility] [place] [address] [facility] [address] 4[address] [place] [address] Unknown, Doctor, MD Appointment Social [...] st Contact Info) Description 06/15/2024 9:30 AM PACKAGE REINSPECTOR Office Visit [address] [address] Xu Prince MD [address] [place], [place] [id number] 06/15/2024 2:30 PM PACKAGE REINSPECTOR [facility] [address] [place] [address] Andreea Cruz PA-C [address] [place] [address] 07/21/2024 4:00 PM PACKAGE REINSPECTOR [facility] [address] [place] [address] [place] [address] [place] [address] documented as of this encounter Visit Diagnoses Not on filedocumented in this encounter Care Teams Assembler Show Motor Relationship Specialty Start Date End Date Heladio [place] [id number] [place] [address] [id number] PCP - General 03/05/23 Carlos Joyner MD [address] [place] [address] Urology 12/09/19 Jadon Murray MD [facility] [address] [facility] 550 [place] [address] Referring Physician Pediatric Surgery 12/09/19 Maru Villagomez, RN Registered Nurse 12/10/19 Ang Slade MD [address] [place] [address] 394 [place] [address] Urology 04/24/20 Carlos Joyner MD NPI: [id number] [place] [address] Assigned Surgical Provider 12/24/20 Ang Slade MD [address] [place] [address] Urology 12/18/22 Lakshmi Wilhelm PA-C [address] [place] [address] Physician Grader Patrol Urology 02/03/23 [place] [address] [place] [address] Assigned PCP 02/06/23 Alissa Perez PA-C [address] [place] [address] Physician Grader Patrol Surgery 09/04/23 Lakshmi Wilhelm PA-C [address] [place] [address] Physician Grader Patrol Urology 09/16/23 Aidee Valero PA-C [address] [place] [address] Assigned Musculoskeletal Provider 04/17/24 Tanisha Marlow 4120 [facility] [place] [address] 03/30/24 documented as of this encounter
--- OUTSIDE RECORDS SUMMARY | 2024-06-07 17:49 | XMS_ITS | Encounter Summary ---
Author Organization [place] Address [address] [place] [address] Care Team Providers Care Weight Reduction Specialist Name Role Phone Carlos Joyner MD Unavailable [phone] Jadon Murray MD Unavailable [phone] Maru Villagomez RN Unavailable Unavailable Ang Slade MD Unavailable [phone] Carlos Joyner MD Unavailable [phone] Ang Slade MD Unavailable [phone] Lakshmi WilhelmC Unavailable [phone] Heladio Willoughby MD Primary Care Provider [phone] Heladio Willoughby MD Unavailable Alissa Perez PA-C Unavailable [phone] Lakshmi WilhelmC Unavailable [phone] Aidee ValeroC Unavailable [phone] Encounter Details Date Type Department Care Team (Late st Contact Info) Description 03/30/2024 Telephone [facility] [address] 4th [place] [address] Aidee Valero PA-C [address] [place] [address] Social History Tobacco Use Types Packs/Day [...] Natalie Abdullahi - 03/30/2024 3:23 PM CST [facility] Call Center Phone Message May a detailed message be left on voicemail: yes Reason for Call: Other: Anna is calling from Medical Records at [facility]. She is calling as she wants to know the time frame of records that are being requested? Action Taken: Other: te Travel Screening: Not Applicable Date of Service: TESTER documented in this encounter Plan of Treatment Upcoming Encounters Date Type Department Care Team (Late st Contact Info) Description 06/15/2024 9:[address] Office Visit [facility] [address] [place] [address] Xu Prince MD 606 24[facility] 106 [place], [place] [address] 06/15/2024 2:[address] TESTER [facility] [address] [place] [address] Andreea Cruz PA-C [address] [place] [address] 07/21/2024 4:[address] TESTER [facility] [address] [place] [address] [place] [address] [place] [address] documented as of this encounter Visit Diagnoses Not on filedocumented in this encounter Care Teams Weight Reduction Specialist Relationship Specialty Start Date [place] Date Heladio [place] [id number] [place] [address] PCP - General 03/05/23 Carlos Joyner MD [address] [place] [address] 586005 Urology 12/09/19 Jadon Murray MD [facility] 2530 [facility] 550 [place], [place] [phone] Referring Physician Pediatric Surgery 12/09/19 Maru Villagomez, RN Registered Nurse 12/10/19 Ang Slade MD [address] [place] [address] 394 [place] [address] Urology 04/24/20 Carlos Joyner MD [address] [place] [address] Assigned Surgical Provider 12/24/20 Ang Slade MD [address] [place] [address] Urology 12/18/22 Lakshmi Wilhelm PA-C [address] [place] [address] Physician Survey Cad Technician Urology 02/03/23 [place] [address] [place] [address] Assigned PCP 02/06/23 Alissa Perez PA-C [address] [place] [address] 200145 Physician Survey Cad Technician Surgery 09/04/23 Lakshmi Wilhelm PA-C [address] [place] [address] 218855 Physician Survey Cad Technician Urology 09/16/23 Aidee Valero PA-C [address] [place] [address] 170515 Assigned Musculoskeletal Provider 04/17/24 Tanisha Marlow 4120 [facility] [address] 03/30/24 documented as of this encounter
--- OUTSIDE RECORDS SUMMARY | 2024-06-07 17:49 | XMS_ITS | Encounter Summary ---
Author Organization [place] Address [address] [place] [address] Care Team Providers Care Industrial Maintenance Instructor Name Role Phone Carlos Joyner MD Unavailable [phone] Jadon Murray MD Unavailable [phone] Maru Villagomez RN Unavailable Unavailable Ang Slade MD Unavailable [phone] Carlos Joyner MD Unavailable [phone] Ang Slade MD Unavailable [phone] Lakshmi Wilhelm PA-C Unavailable [phone] Heladio Willoughby MD Primary Care Provider [phone] Heladio Willoughby MD Unavailable Alissa Perez PA-C Unavailable [phone] Lakshmi Wilhelm PA-C Unavailable [phone] Aidee Valero PA-C Unavailable [phone] Encounter Details Date Type Department Care Team (Late st Contact Info) Description 02/13/2024 [facility] [address] [place] [address] Carlos Joyner MD [address] [place] [address] Social History Tobacco Use Types Packs/Day [...] st Contact Info) Description 06/15/2024 9:30 AM COKE WORKER Office Visit [address] [address] Xu Prince MD [address] [place] [address] 06/15/2024 2:30 PM COKE WORKER Office Visit [facility] [address] [place] [address] Andreea Cruz, PAEarlC [address] [facility] [place], [place] [address] 07/21/2024 4:00 PM COKE WORKER Office Visit [facility] [address] [facility] [place] [address] [place] [address] [place] [address] documented as of this encounter Visit Diagnoses Not on filedocumented in this encounter Care Teams Industrial Maintenance Instructor Relationship Specialty [place] [address] [facility] [place], [place] [address] PCP - General 03/05/23 Carlos Joyner MD [address] [place] [address] 675235 Urology 12/09/19 Jadon Murray MD [facility] 2530 [facility] 550 [place] [address] Referring Physician Pediatric Surgery 12/09/19 Maru Villagomez, OTILIO Registered Nurse 12/10/19 Ang Slade MD [address] [place] [address] Urology 04/24/20 Carlos Joyner MD [address] [place] [address] 908085 Assigned Surgical Provider 12/24/20 Ang Slade MD [address] [place] [address] Urology 12/18/22 Lakshmi Wilhelm PA-C [address] [place] [address] 654955 Physician Parts Control Clerk Urology 02/03/23 [place] [address] [facility] [place] [address] Assigned PCP 02/06/23 Alissa Perez PA-C [address] [place] [address] Physician Parts Control Clerk Surgery 09/04/23 Lakshmi Wilhelm PA-C [address] [place] [address] Physician Parts Control Clerk Urology 09/16/23 Aidee Valero PA-C [address] [place] [address] 196485 Assigned Musculoskeletal Provider 04/17/24 Tanisha Marlow 4120 [facility] [address] 03/30/24 documented as of this encounter
--- OUTSIDE RECORDS SUMMARY | 2024-06-07 17:49 | XMS_ITS | Encounter Summary ---
Author Organization [place] Address [address] [place] [address] Care Team Providers Care Rn Emergency Room Name Role Phone Carlos Joyner MD Unavailable [phone] Jadon Murray MD Unavailable [phone] Maru Villagomez RN Unavailable Unavailable Ang Slade MD Unavailable [phone] Carlos Joyner MD Unavailable [phone] Ang Slade MD Unavailable [phone] Lakshmi WilhelmC Unavailable [phone] Heladio Willoughby MD Primary Care Provider [phone] Heladio Willoughby MD Unavailable Alissa Perez PA-C Unavailable [phone] Lakshmi WilhelmC Unavailable [phone] Aidee ValeroC Unavailable [phone] Encounter Details Date Type Department Care Team (Late st Contact Info) Description 04/01/2024 [facility] [place] [facility] [address] [place] [address] Aidee Valero PA-C [address] [place] [address] Social History Tobacco Use Types Packs/Day [...] st Contact Info) Description 06/15/2024 9:30 AM STOCK PLAN ADMINISTRATOR Office Visit [address] [address] Xu Prince MD [address] [place] [address] 06/15/2024 2:30 PM STOCK PLAN ADMINISTRATOR Office Visit [facility] [address] [place] [address] Andreea Cruz, PAEarlC [address] [facility] [place], [place] 58[address] 07/21/2024 4:00 PM STOCK PLAN ADMINISTRATOR [facility] [address] [facility] [place] [address] [place] [address] [place], [place] 20[address] documented as of this encounter Visit Diagnoses Not on filedocumented in this encounter Care Teams Rn Emergency Room Relationship Specialty Start [place] [address] [place], [place] [phone] PCP - General 03/05/23 Carlos Joyner MD [address] [place] [address] 536035 Urology 12/09/19 Jadon Murray MD [facility] [address] [facility] 550 [place], [place] [phone] Referring Physician Pediatric Surgery 12/09/19 Maru iVllagomez, RN Registered Nurse 12/10/19 Ang Slade MD [address] [place] [address] Urology 04/24/20 Carlos Joyner MD [address] [place] [address] 224435 Assigned Surgical Provider 12/24/20 Agn Slade MD [address] [place] [address] 394 [place] [address] Urology 12/18/22 Lakshmi Wilhelm PA-C [address] [place] [address] 843975 Physician Nuclear Medicine Pet Ct Technologist Urology 02/03/23 [place] [address] [facility] [address] Assigned PCP 02/06/23 Alissa Perez PA-C [address] [place] [address] Physician Nuclear Medicine Pet Ct Technologist Surgery 09/04/23 Lakshmi Wilhelm PA-C [address] [place] [address] Physician Nuclear Medicine Pet Ct Technologist Urology 09/16/23 Aidee Valero PA-C [address] [place] [address] 348435 Assigned Musculoskeletal Provider 04/17/24 Tanisha Marlow 4120 [facility] [address] 03/30/24 documented as of this encounter
--- OUTSIDE RECORDS SUMMARY | 2024-06-07 17:49 | XMS_ITS | Referral Summary ---
Author Organization [facility] Address [address] [place] [address] Care Team Providers Care Security Lead Name Role Phone Carlos Joyner MD Unavailable [phone] Jadon Murray MD Unavailable [phone] Maru Villagomez RN Unavailable Unavailable Ang Slade MD Unavailable [phone] Carlos Joyner MD Unavailable [phone] Ang Slade MD Unavailable [phone] Lakshmi Wilhelm PA-C Unavailable Heladio Willoughby MD Primary Care Provider Heladio Willoughby MD Unavailable Alissa Perez PA-C Unavailable [phone] Lakshmi Wilhelm PA-C Unavailable [phone] Aidee Valero PA-C Unavailable Encounters Date Type Department Care Team Description 04/28/2024 Travel 04/26/[address] [facility] Urology [address] [place] [address] Carlos Joyner MD Recurrent UTI (Primary Dx) 04/26/[address] [facility] [address] [place] [address] Rosita Velasco RN 04/21/2024 Travel 04/21/2024 11:45 AM IDENTIFICATION CLERK Lab [facility] [address] [place] [address] Recurrent UTI 04/21/[address] [facility]rology [address] [phone] Carlos Joyner MD Recurrent UTI (Primary Dx) 04/21/[address] [facility] [address] [address] Carlos Joyner MD Call Back (Pt still having UTI Symptoms. They are wanting to see about getting a new antibiotic. Please call Nurse customer project manager at [phone]. Please call Yamini. As they would like to get something done prior to the holiday. Thanks ) 04/21/2024 Telephone [facility] [address] [place] [address] Heladio Willoughby MD 04/13/2024 Telephone [facility] [address] [place] [address] Heladio Willoughby MD Orders 04/13/[address] [facility]rology [address] [phone] Estrella Martinez NP Forms; Orders (Catheter, lubrication, gloves) 04/12/[address] [facility] Health Information Management [address] [facility] [address] [place] [address] Scan, Non-Provider 04/01/[address] [facility] Orthopedic [address] [phone] Aidee Valero PA-C 03/30/[address] [facility] [address] [phone] Aidee Valero PA-C 03/30/2024 Travel 03/30/[address] [facility] [address] [phone] Aidee Valero PA-C Previsit 03/30/2024 1:40 PM IDENTIFICATION CLERK Ancillary Procedure [facility] Xray [address] [phone] Aidee Valero PA-C Thoracic spina bifida, unspecified hydrocephalus presence (H) 03/30/2024 2:00 PM IDENTIFICATION CLERK Office Visit [facility] [address] [phone] Aidee Valero PA-C History of spinal fusion (Primary Dx); Thoracic spina bifida, unspecified hydrocephalus presence (H) 03/25/2024 Travel 03/23/[address] [facility] [address] [phone] Aidee Valero PA-C Thoracic spina bifida, unspecified hydrocephalus presence (H) (Primary Dx) 03/09/[address] [facility] [address] [phone] Aidee Valero PA-C 03/09/[address] [facility] [address] [phone] Unknown, Doctor, Appointment from Last 3 Months Allergies Active Allergy [...] Maintenance, other 03/13/20 Active Wound Dressings ([facility] ALGINATE 2X2) PADSIndications:Pr essure ulcer [facility] in [facility] hospital [...] mouth 2 times daily. 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 07/22/2003 Overview (03/14/2020): LW Onset: ; Short Stature 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/22/2003 Overview (04/16/2023): LW Modifier: shunted LW Onset: 72Tcv53 ; Spina Bifida Lumbar w Hydrocephalus Resolved Problems Problem Noted Date Diagnosed Date Resolved Date Acute kidney failure, unspecified 02/10/2020 03/05/2023 Immunizations Name Administration Dates Next Due DTAP (<7y) 01/18/2008,05/06/2005 DTaP, Unspecified 01/16/2015 DTaP/HepB/IPV 05/27/2003,03/21/2003,2002 Flu, Unspecified 02/26/2016,02/21/2009, 4 P6h2-73 Novel Flu 03/18/2009 [id number] Novel Flu P-free 03/30/2004,05/27/2003 HEPATITIS A (PEDS [...] 61.2 kg (135 lb) 03/30/2024 2:01 PM IDENTIFICATION CLERK Height 147.3 cm (4' 10) 03/30/2024 2:01 PM IDENTIFICATION CLERK Body Mass Index 28.22 03/30/2024 2:01 PM IDENTIFICATION CLERK Plan of Treatment Upcoming Encounters Date Type Department Care Team (Late st Contact Info) Description 06/15/2024 9:30 AM IDENTIFICATION CLERK Office Visit [facility] [address] [place] [phone] Xu Prince MD [address] [place] [phone] 06/15/2024 2:30 PM IDENTIFICATION CLERK Office Visit [facility] [address] [place] [address] Andreea Cruz PA-C [address] [place] [address] 07/21/2024 4:00 PM IDENTIFICATION CLERK Office Visit [facility] [address] [place] [address] [place] [address] [place] [address] Medical Devices Implanted Type Area Heating Plant Superintendent Device Identifier Shelf Expiration Date Model / Serial / Lot Stent Ureteral Percuflex Plus [id number] - [id number] Implanted:Qty: 1 on 11/12/2021 by Carlos Joyner MD at [facility] Stent Right: Abdomen [employer] [id number] 12/26/2022 [id number] Ureteral Catheter 5 Peruvian Implanted:Qty: 1 on 03/31/2023 by Elizabeth Jacobsen MD at [facility] Right: Ureter 02/02/2026 [id number] 10 / / [id number] Description:5 costa rican Uretera l catheter used as a stent in right ureter 5 Peruvian Open Ended Catheter Implanted:Qty: 1 on 03/31/2023 by Elizabeth Jacobsen MD at [facility] Left: Ureter 02/19/2026 [id number] 10 / / [id number] Explanted Type Area Heating Plant Superintendent Device Identifier Shelf Expiration Date Model / Serial / Lot Stent Ureteral Percuflex Plus [id number] - [id number] Implanted:Qty: 1 on 05/10/2021 by Carlos Joyner MD at [facility] Explanted:Qty: 1 on 08/09/2021 by Jane Gomez MD at [facility] Stent Right: Urethra [employer] 06/14/2022 [id number] 10 / [id number] Description:Ureter Stent Ureteral Percuflex Plus [id number] - [id number] Implanted:Qty: 1 on 05/10/2021 by Carlos Joyner MD at [facility] Explanted:Qty: 1 on 08/09/2021 by Jane Gomez MD at [facility] Stent Left: Urethra [employer] 07/25/2022 [id number] 10 / / [id number] Stent Ureteral Percuflex Plus [id number] - [id number] Implanted:Qty: 1 on 08/09/2021 by Jane Gomez MD at [facility] Explanted:Qty: 1 on 11/12/2021 at [facility] Stent Right: Ureter [employer] 02/29/2024 [id number] 10 / / [id number] Stent Ureteral Percuflex Plus [id number] - [id number] Implanted:Qty: 1 on 08/09/2021 by Jane Gomez MD at [facility] Explanted:Qty: 1 on 11/12/2021 at [facility] Stent Right: Ureter [employer] 02/29/2024 [id number] 10 / [id number] 5 Fr X 22cm Ureteral Stent Explanted:Qty: 1 on 02/07/2020 by Carlos Joyner MD at [facility] COOK 5 Fr X 22cm Ureteral Stent Explanted:Qty: 1 on 02/07/2020 by Carlos Joyner MD at [facility] COOK Procedures Procedure Name Priority Date/Time Associated Diagnosis Comments URINE CULTURE Routine 04/21/2024 10:30 AM IDENTIFICATION CLERK Recurrent UTI URINE MICROSCOPIC EXAM Routine 04/21/2024 10:30 AM IDENTIFICATION CLERK Recurrent UTI ROUTINE UA WITH MICROSCOPIC Routine 04/21/2024 10:30 AM IDENTIFICATION CLERK Recurrent UTI XR SPINE COMPLETE SCOLIOSIS 2 VIEWS Routine 03/30/2024 1:38 PM IDENTIFICATION CLERK Thoracic spina bifida, unspecified hydrocephalus presence (H) from Last 3 Months Results * (ABNORMAL) UA with Microscopic (04/21/2024 10:30 AM IDENTIFICATION CLERK) Color Urine Yellow Colorless, Straw, Light Yellow, Yellow 04/21/2024 11:45 AM IDENTIFICATION CLERK [facility] Appearance Urine Clear Clear 04/21/20 11:45 AM IDENTIFICATION CLERK [facility] Glucose Urine Negative Negative mg/dL 04/21/2024 11:45 AM IDENTIFICATION CLERK [facility] Bilirubin Urine Negative Negative 11:45 AM IDENTIFICATION CLERK [facility] Ketones Urine Negative Negative mg/dL 04/21/2024 11:45 AM IDENTIFICATION CLERK [facility] Specific [place] Urine 1.020 1.003 - 1.035 04/21/2024 11:45 AM IDENTIFICATION CLERK [facility] Blood Urine Negative Negative 04/21/2024 11:45 AM IDENTIFICATION CLERK [facility] pH Urine 6.5 5.0 - 7.0 04/21/2024 11:45 AM IDENTIFICATION CLERK LABORATORY Protein Albumin Urine Negative Negative mg/dL 04/21/2024 11:45 AM IDENTIFICATION CLERK LABORATORY Urobilinogen Urine 0.2 0.2, 1.0 E.U./dL 04/21/2024 11:45 AM IDENTIFICATION CLERK LABORATORY Nitrite Urine Positive(A) Negative 04/21/2024 11:45 AM IDENTIFICATION CLERK LABORATORY Leukocyte Esterase Urine Large(A) Negative 04/21/2024 11:45 AM IDENTIFICATION CLERK LABORATORY Urine URINE SPECIMEN OBTAINED BY CLEAN CATCH PROCEDURE / Unknown Non-blood Collection / Unknown 04/21/2024 10:30 AM IDENTIFICATION CLERK 04/21/2024 11:40 AM IDENTIFICATION CLERK Carlos Joyner MD LAB - URINE ORDERABLES Fin al Result Performing Organization Address [facility] Co de Phone Number LABORATORY [facility] [address] [place] [address] (no room number, 1st floor of [facility]) [address] * (ABNORMAL) Urine Microscopic Exam (04/21/2024 10:30 AM IDENTIFICATION CLERK) Bacteria Urine Moderate( A) None Seen /HPF LINDA 04/21/2024 11:48 AM IDENTIFICATION CLERK LABORATORY RBC Urine 2-5(A) 0-2 /HPF /HPF LINDA 04/21/2024 11:48 AM IDENTIFICATION CLERK LABORATORY WBC Urine 25-50(A) 0-5 /HPF /HPF LINDA 04/21/2024 11:48 AM IDENTIFICATION CLERK LABORATORY Squamous Epithelials Urine Few(A) None Seen /LPF LINDA 04/21/2024 11:48 AM IDENTIFICATION CLERK LABORATORY Urine URINE SPECIMEN OBTAINED BY CLEAN CATCH PROCEDURE / Unknown Non-blood Collection / Unknown 04/21/2024 10:30 AM IDENTIFICATION CLERK 04/21/2024 11:40 AM IDENTIFICATION CLERK Carlos Joyner MD LAB - URINE ORDERABLES Fin al Result Performing Organization Address [facility]/ZIP Co de Phone Number LABORATORY [facility] [address] [place] [address] Lab (no room number, 1st floor of [facility]) [address] * (ABNORMAL) Urine Culture (04/21/2024 10:30 AM IDENTIFICATION CLERK) [facility] Signature Culture >100,000 CFU/mL Escherichia coli(A) LINDA 04/23/2024 8:04 PM IDENTIFICATION CLERK [facility] Culture >100,000 CFU/mL Enterobacter cloacae complex(A) 04/23/2024 8:04 PM IDENTIFICATION CLERK [facility] Urine MID-STREAM URINE SPECIMEN / Unknown Non-blood Collection / Unknown 04/21/2024 10:30 AM IDENTIFICATION CLERK 04/21/2024 11:40 AM IDENTIFICATION CLERK Narrative Organism Antibiotic Method Susceptibility Escherichia coli Ampicillin LINDA <=2 ug/mL: Susceptible Escherichia coli Ampicillin/ Sulbactam LINDA <=2 ug/mL: Susceptible Escherichia coli Piperacillin/Tazobactam LINDA <=4 ug/mL: Susceptible Escherichia coli Cefazolin LINDA <=4 ug/mL: Susceptible Comment:Cefazolin IL C breakpoints are for the treatment of [...] ORDERA BLES Final Result [facility] Inf. Diseases Di[facility]. Lab [address] [facility] [place] [address] * XR Spine Complete Scoliosis 2 Views (03/30/2024 1:38 PM IDENTIFICATION CLERK) Anatomical Region Laterality Modality Spine Computed Radiogr aphy Impressions 03/31/2024 1:57 PM IDENTIFICATION CLERK Impression: 1. Postoperative changes of T10 through pelvis fusion without evidence of hardware complication. 2. No substantial coronal curvature of the spine. 3. Negative global coronal imbalance. 4. Positive global sagittal imbalance. MILLA CHOI DO Narrative 03/31/2024 1:57 PM IDENTIFICATION CLERK Exam: Full spine radiographs using EOS History: [...] spine. Negative global coronal imbalance. Sagittal Vertical [place] (A vertical line drawn from the center [...] spine. Negative global coronal imbalance. Sagittal Vertical [place] (A vertical line drawn from the center [...] imbalance. MILLA CHOI DO Aidee Valero PA-C [facility] ORDER ERROL Final Result from Last 3 Months Insurance [place]ICA[place] [facility] [place] [address] [facility] [place]ID [place] MED[place] [facility] IN[facility] [place] [facility] Advance Directives For more information, please contact: [phone] Documents on File Type Date Recorded Patient Inserter Expl anation Advance Directives and Living Will [...] continue PREVIOUSLY ORDERED code status Care Teams Security Lead Relationship Specialty [place] [address] [facility] [place] [address] PCP - General 03/05/23 Carlos Joyner MD [address] [place] [id number] Urology 12/09/19 Jadon Murray MD [facility] [address] [facility] [address] [place] [address] Referring Physician Pediatric Surgery 12/09/19 Maru Villagomez, RN Registered Nurse 12/10/19 Ang Slade MD [address] [address] Urology 04/24/20 Carlos Joyner MD [address] [place] [address] [id number] Assigned Surgical Provider 12/24/20 Ang Slade MD [address] [facility] [address] [place] [address] Urology 12/18/22 Lakshmi Wilhelm PA-C [address] [place] [address] Physician [facility] 02/03/23 [place] [address] [facility] [place] [place] [address] Assigned PCP 02/06/23 Alissa Perez PA-C [address] [place] [address] Physician [facility] 09/04/23 Lakshmi Wilhelm PA-C [address] [place] [address] Physician [facility] 09/16/23 Aidee Valero PA-C [address] [place] [address] Assigned Musculoskeletal Provider 04/17/24 Tanisha Marlow [address] [facility] [address] 03/30/24
--- OUTSIDE RECORDS SUMMARY | 2024-06-07 17:49 | XMS_ITS | Clinical Summary ---
Author Organization [facility] Address [address] [place] [address] Care Team Providers Care Radio Reporter Name Role Phone Carlos Joyner MD Unavailable [phone] Jadon Murray MD Unavailable [phone] Maru Villagomez RN Unavailable Unavailable Agn Slade MD Unavailable Carlos Joyner MD Unavailable [phone] Ang Slade MD Unavailable Lakshmi Wilhelm-C Unavailable [phone] Heladio Willoughby MD Primary Care Provider [phone] Heladio Willoughby MD Unavailable Alissa Perez PA-C Unavailable [phone] Lakshmi Wilhelm-C Unavailable [phone] Aidee Valero PA-C Unavailable Allergies Active Allergy [...] Refill(s), Maintenance, other 03/13/20 Active Wound Dressings ([facility] ALGINATE 2X2) PADSIndications:Pr essure ulcer acquired in [facility] Externally apply 1 each topically daily [...] MOUTH TWICE DAILY 180 tablet 2 12/24/19 Active potassium chloride marcie ER (KLOR-CON M10) [...] Acute cystitis 04/04/2019 Ulcer, surgical 06/07/2011 S/P FIG BAR MACHINE OPERATOR shunt 04/29/2011 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 (03/14/2020): Vertebra Absence Congenital Kyphosis (acquired) (postural) 08/04/2008 Overview (03/14/2020): Kyphosis Neurogenic bladder 07/22/2003 Overview (03/05/2023): LW Onset: 66Khq19 ; Paralysis Bladder Neurogenic bowel 07/22/2003 Overview (03/14/2020): LW Onset: 16Rzp36 Paraplegia 07/22/2003 Overview (04/18/2023): 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 07/22/2003 Overview (03/14/2020): LW Onset: ; Short Stature 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/22/2003 Overview (04/16/2023): LW Modifier: shunted LW Onset: 57Qvv02 ; Spina Bifida Lumbar w Hydrocephalus Resolved Problems Problem Noted Date Diagnosed Date Resolved Date Acute kidney failure, unspecified 02/10/2020 03/05/2023 Encounters Date Type Department Care Team Description 04/28/2024 Travel 04/26/2024 Orders Only [facility] [address] [phone] Carlos Joyner MD Recurrent UTI (Primary Dx) 04/26/2024 MyC Medical Advice [facility] [address] [phone] Rosita Velasco RN 04/21/2024 11:45 AM CLINICAL TEAM LEAD Lab [facility] [address] [place] [phone] Recurrent UTI 04/21/2024 Travel 04/21/2024 Orders Only [facility] [address] [phone] Carlos Joyner MD Recurrent UTI (Primary Dx) 04/21/2024 Telephone [facility] [address] [phone] Carlos Joyner MD Call Back (Pt still having UTI Symptoms. They are wanting to see about getting a new antibiotic. Please call Nurse manager telemarketing at [phone]. Please call Yamini. As they would like to get something done prior to the holiday. Thanks ) 04/21/2024 Telephone [facility] [address] [place] [address] Heladio Willoughby MD 04/13/2024 Telephone [facility] [address] [place] [phone] Heladio Willoughby MD Orders 04/13/2024 Documentation Only [facility] [address] [phone] Estrella Martinez NP Forms; Orders (Catheter, lubrication, gloves) 04/12/2024 Medical Correspondence [facility] Information Management [address] [place] [address] Scan, Non-Provider 04/01/2024 MyC Medical Advice [facility] [address] [phone] Aidee Valero PA-C 03/30/2024 2:00 PM CLINICAL TEAM LEAD Office Visit [facility] [address] [phone] Aidee Valero PA-C History of spinal fusion (Primary Dx); Thoracic spina bifida, unspecified hydrocephalus presence (H) 03/30/2024 1:40 PM CLINICAL TEAM LEAD Ancillary Procedure [facility] Xray [address] [phone] Aidee Valero PA-C Thoracic spina bifida, unspecified hydrocephalus presence (H) 03/30/2024 Telephone [facility] [address] [phone] Aidee Valero PA-C 03/30/2024 Travel 03/30/2024 PRE VISIT [facility] [address] [phone] Aidee Valero PA-C Previsit 03/25/2024 Travel 03/23/2024 Orders Only [facility] [address] [phone] Aidee Valero PA-C Thoracic spina bifida, unspecified hydrocephalus presence (H) (Primary Dx) 03/09/2024 Telephone [facility] [address] [facility] 4th [place] [address] Aidee Valero PA-C 03/09/2024 Telephone [facility] [address] [facility] [address] 4th [place] [address] Unknown, Doctor, Appointment from Last 3 Months Immunizations Name Administration Dates Next Due DTAP (<7y) 01/18/2008,05/06/2005 DTaP, Unspecified 01/16/2015 DTaP/HepB/IPV 05/27/2003,03/21/2003,2002 Flu, Unspecified 02/26/2016,02/21/2009, 4 R5q8-40 Novel Flu 03/18/2009 [id number] Novel Flu P-free 03/30/2004,05/27/2003 HEPATITIS A (PEDS [...] 61.2 kg (135 lb) 03/30/2024 2:01 PM CLINICAL TEAM LEAD Height 147.3 cm (4' 10) 03/30/2024 2:01 PM CLINICAL TEAM LEAD Body Mass Index 28.22 03/30/2024 2:01 PM CLINICAL TEAM LEAD Plan of Treatment Upcoming Encounters Date Type Department Care Team (Late st Contact Info) Description 06/15/2024 9:30 AM CLINICAL TEAM LEAD Office Visit [facility] [address] [place] [address] [phone] Xu Prince MD [address] [place] [address] [phone] 06/15/2024 2:30 PM CLINICAL TEAM LEAD Office Visit [facility] [address] [place] [address] Andreea Cruz PA-C [address] [place], [place] [phone] 07/21/2024 4:00 PM CLINICAL TEAM LEAD Office Visit [facility] [address] [place] [address] [place] [address] [place] [address] Health Maintenance Due Date Last Done Comments ANNUAL REVIEW OF HM ORDERS 2002 MENINGITIS B IMMUNIZATION (1 of 2 - Standard) 2018 PAP 09/17/2023 MEDICARE ANNUAL WELLNESS VISIT 04/16/2024 04/16/2023 PHQ-2 (once per calendar year) 2024 10/15/2023, 06/24/2023, 04/16/2023, Additional history exists DTAP/TDAP/TD IMMUNIZATION (8 - Td or Tdap) [...] 5 Years) and At-Risk Patients (6 to 49 Years) Aged Out 05/27/2003, 03/21/2003, 2002 No longer eligible based on patient's age to complete this topic MENINGITIS IMMUNIZATION Completed 06/17/2019, 01/16 HPV IMMUNIZATION Completed 04/16/2023, , 12/18/2017 COVID-19 Vaccine Completed 04/14/2024, , 05/02/2022, Additional history exists INFLUENZA VACCINE Completed 04/14/2024, , 05/02/2022, Additional history exists RSV MONOCLONAL ANTIBODY Aged Out No l onger eligible based on patient's age to complete this topic Medical Devices Implanted Type Area Teaching Supervisor Device Identifier Shelf Expiration Date Model / Serial / Lot Stent Ureteral Percuflex Plus [id number] - [id number] Implanted:Qty: 1 on 11/12/2021 by Carlos Joyner MD at [facility] Stent Right: Abdomen [employer] [id number] 12/26/2022 [id number] Ureteral Catheter 5 Lao Implanted:Qty: 1 on 03/31/2023 by Elizabeth Jacobsen MD at [facility] Right: Ureter 02/02/2026 [id number] 10 / / [id number] Description:5 belgian Uretera l catheter used as a stent in right ureter 5 Lao Open Ended Catheter Implanted:Qty: 1 on 03/31/2023 by Elizabeth Jacobsen MD at [facility] Left: Ureter 02/19/2026 [id number] 10 / / [id number] Explanted Type Area Teaching Supervisor Device Identifier Shelf Expiration Date Model / Serial / Lot Stent Ureteral Percuflex Plus [id number] - [id number] Implanted:Qty: 1 on 05/10/2021 by Carlos Joyner MD at [facility] Explanted:Qty: 1 on 08/09/2021 by Jane Gomez MD at [facility] Stent Right: Urethra [employer] 06/14/2022 [id number] 10 / / [id number] Description:Ureter Stent Ureteral Percuflex Plus [id number] - [id number] Implanted:Qty: 1 on 05/10/2021 by Carlos Joyner MD at [facility] Explanted:Qty: 1 on 08/09/2021 by Jane Gomez MD at [facility] Stent Left: Urethra [employer] 07/25/2022 [id number] 10 / / [id number] Stent Ureteral Percuflex Plus [id number] - [id number] Implanted:Qty: 1 on 08/09/2021 by Jane Gomez MD at [facility] Explanted:Qty: 1 on 11/12/[address] [facility] Stent Right: Ureter [employer] 02/29/2024 [id number] / / [id number] Stent Ureteral Percuflex Plus [id number] - [id number] Implanted:Qty: 1 on 08/09/2021 by Jane Gomez MD at [facility] Explanted:Qty: 1 on 11/12/[address] [facility] Stent Right: Ureter [employer] 02/29/2024 [id number] 10 / / [id number] 5 Fr X 22cm Ureteral Stent Explanted:Qty: 1 on 02/07/2020 by Carlos Joyner MD at [facility] COOK 5 Fr X 22cm Ureteral Stent Explanted:Qty: 1 on 02/07/2020 by Carlos Joyner MD at [facility] COOK Procedures Procedure Name Priority Date/Time Associated Diagnosis Comments URINE CULTURE Routine 04/21/2024 10:30 AM CLINICAL TEAM LEAD Recurrent UTI URINE MICROSCOPIC EXAM Routine 04/21/2024 10:30 AM CLINICAL TEAM LEAD Recurrent UTI ROUTINE UA WITH MICROSCOPIC Routine 04/21/2024 10:30 AM CLINICAL TEAM LEAD Recurrent UTI XR SPINE COMPLETE SCOLIOSIS 2 VIEWS Routine 03/30/2024 1:38 PM CLINICAL TEAM LEAD Thoracic spina bifida, unspecified hydrocephalus presence (H) from Last 3 Months Results * (ABNORMAL) UA with Microscopic (04/21/2024 10:30 AM CLINICAL TEAM LEAD) Color Urine Yellow Colorless, Straw, Light Yellow, Yellow 04/21/2024 11:45 AM CLINICAL TEAM LEAD [facility] Appearance Urine Clear Clear 04/21/20 11:45 AM CLINICAL TEAM LEAD [facility] Glucose Urine Negative Negative mg/dL 04/21/2024 11:45 AM CLINICAL TEAM LEAD [facility] Bilirubin Urine Negative Negative 11:45 AM CLINICAL TEAM LEAD [facility] Ketones Urine Negative Negative mg/dL 04/21/2024 11:45 AM CLINICAL TEAM LEAD [facility] Specific Diggs Urine 1.020 1.003 - 1.035 04/21/2024 11:45 AM CLINICAL TEAM LEAD [facility] Blood Urine Negative Negative 04/21/2024 11:45 AM CLINICAL TEAM LEAD [facility] pH Urine 6.5 5.0 - 7.0 04/21/2024 11:45 AM CLINICAL TEAM LEAD [facility] Protein Albumin Urine Negative Negative mg/dL 04/21/2024 11:45 AM CLINICAL TEAM LEAD [facility] Urobilinogen Urine 0.2 0.2, 1.0 E.U./dL 04/21/2024 11:45 AM CLINICAL TEAM LEAD LABORATORY Nitrite Urine Positive(A) Negative 04/21/2024 11:45 AM CLINICAL TEAM LEAD LABORATORY Leukocyte Esterase Urine Large(A) Negative 04/21/2024 11:45 AM CLINICAL TEAM LEAD LABORATORY Urine URINE SPECIMEN OBTAINED BY CLEAN CATCH PROCEDURE / Unknown Non-blood Collection / Unknown 04/21/2024 10:30 AM CLINICAL TEAM LEAD 04/21/2024 11:40 AM CLINICAL TEAM LEAD Carlos Joyner MD LAB - URINE ORDERABLES Fin al Result Performing Organization Address City/[facility]/ZIP Co de Phone Number LABORATORY [address] (no room number, 1st floor of [facility]) [address] * (ABNORMAL) Urine Microscopic Exam (04/21/2024 10:30 AM CLINICAL TEAM LEAD) Bacteria Urine Moderate( A) None Seen /HPF LINDA 04/21/2024 11:48 AM CLINICAL TEAM LEAD LABORATORY RBC Urine 2-5(A) 0-2 /HPF /HPF LINDA 04/21/2024 11:48 AM CLINICAL TEAM LEAD LABORATORY WBC Urine 25-50(A) 0-5 /HPF /HPF LINDA 04/21/2024 11:48 AM CLINICAL TEAM LEAD LABORATORY Squamous Epithelials Urine Few(A) None Seen /LPF LINDA 04/21/2024 11:48 AM CLINICAL TEAM LEAD LABORATORY Urine URINE SPECIMEN OBTAINED BY CLEAN CATCH PROCEDURE / Unknown Non-blood Collection / Unknown 04/21/2024 10:30 AM CLINICAL TEAM LEAD 04/21/2024 11:40 AM CLINICAL TEAM LEAD Carlos Joyner MD LAB - URINE ORDERABLES Fin al Result Performing Organization Address City/[facility]/ZIP Co de Phone Number LABORATORY [address] Lab (no room number, 1st floor of [facility]) [address] * (ABNORMAL) Urine Culture (04/21/2024 10:30 AM CLINICAL TEAM LEAD) Culture >100,000 CFU/mL Escherichia coli(A) LINDA 04/23/2024 8:04 PM CLINICAL TEAM LEAD [facility] Culture >100,000 CFU/mL Enterobacter cloacae complex(A) 04/23/2024 8:04 PM CLINICAL TEAM LEAD [facility] Urine MID-STREAM URINE SPECIMEN / Unknown Non-blood Collection / Unknown 04/21/2024 10:30 AM CLINICAL TEAM LEAD 04/21/2024 11:40 AM CLINICAL TEAM LEAD Narrative Organism Antibiotic Method Susceptibility Escherichia coli [...] Ceftriaxone LINDA Resistant Enterobacter cloacae complex Cefepime LINAD <=1 ug/mL: Susceptible Enterobacter cloacae complex Gentamicin [...] ORDERA BLES Final Result [facility] Inf. Diseases Diag. Lab [address] [facility], [address] [place] [phone] * XR Spine Complete Scoliosis 2 Views (03/30/2024 1:38 PM CLINICAL TEAM LEAD) Anatomical Region Laterality Modality Spine Computed Radiogr aphy Impressions 03/31/2024 1:57 PM CLINICAL TEAM LEAD Impression: 1. Postoperative changes of T10 through pelvis fusion without evidence of hardware complication. 2. No substantial coronal curvature of the spine. 3. Negative global coronal imbalance. 4. Positive global sagittal imbalance. MILLA CHOI DO Narrative 03/31/2024 1:57 PM CLINICAL TEAM LEAD Exam: Full spine radiographs using EOS History: [...] spine. Negative global coronal imbalance. Sagittal Vertical [place] (A vertical line drawn from the center [...] spine. Negative global coronal imbalance. Sagittal Vertical [place] (A vertical line drawn from the center [...] 3 Months Insurance [place] [facility] [place] [facility] [place] [place] [facility] [place] [facility] [place] [address] [place] [facility] [place] Advance Directives For more information, please contact: [phone] Documents on File Type Date Recorded Patient Steam Box Hand Expl anation Advance Directives and Living Will [...] continue PREVIOUSLY ORDERED code status Care Teams Radio Reporter Relationship Specialty [place] [address] [place] [address] PCP - General 03/05/23 Carlos Joyner MD [address] [place] [address] [id number] Urology 12/09/19 Jadon Murray MD [facility] [address] [phone] Referring Physician Pediatric Surgery 12/09/19 Maru Villagomez, OTILIO Registered Nurse 12/10/19 Ang Slade MD [address] [place] [address] 409395 Urology 04/24/20 Carlos Joyner MD [address] [place] [address] 038105 Assigned Surgical Provider 12/24/20 Ang Slade MD [address] [place] [address] 086615 Urology 12/18/22 Lakshmi Wilhelm PA-C [address] [place] [address] 110685 Physician Per Assessment Nurse Urology 02/03/23 [place] [address] [place] [address] Assigned PCP 02/06/23 Alissa Perez PA-C [address] [place] [address] 892405 Physician Per Assessment Nurse Surgery 09/04/23 Lakshmi Wilhelm PA-C [address] [place] [address] 039205 Physician Per Assessment Nurse Urology 09/16/23 Aidee Valero PA-C [address] [place], [place] 885985 Assigned Musculoskeletal Provider 04/17/24 Tanisha Mralow [address] [facility] [address] 03/30/24
--- OUTSIDE RECORDS SUMMARY | 2024-06-07 17:49 | XMS_ITS | Encounter Summary ---
Author Organization [place] Address [address] [place] [address]. [place] [address] Care Team Providers Care Automatic Brine Mixer Operator Name Role Phone Carlos Joyner MD Unavailable [phone] Jadon Murray MD Unavailable [phone] Maru Villagomez RN Unavailable Unavailable Ang Slade MD Unavailable [phone] Carlos Joyner MD Unavailable [phone] Ang Slade MD Unavailable [phone] Lakshmi Wilhelm PA-C Unavailable [phone] Heladio Willoughby MD Primary Care Provider [phone] Heladio Willoughby MD Unavailable Alissa Perez PA-C Unavailable [phone] Lakshmi Wilhelm PA-C Unavailable [phone] Aidee Valero PA-C Unavailable [phone] Encounter Details Date Type Department Care Team (Late st Contact Info) Description 04/26/2024 [facility] Medical Advice [facility] [address] 4th [place] [address] Rosita Velasco, RN Social History [...] No additional needsat this time. OTILIO Becker Retail Salesman- Urology [phone] CH/LANGUAGE THERAPIST documented in this encounter Plan of Treatment Upcoming Encounters Date Type Department Care Team (Late st Contact Info) Description 06/15/2024 9:30 AM SPEECH/LANGUAGE THERAPIST Office Visit [address] [address] Xu Prince MD [address] [place] [address] 06/15/2024 2:30 PM SPEECH/LANGUAGE THERAPIST [facility] [address] [place] [address] Andreea Cruz PA-C [address] [place] [address] 07/21/2024 4:00 PM SPEECH/LANGUAGE THERAPIST [facility] [address] [place] [address] [place] [address] [place] [address] documented as of this encounter Visit Diagnoses Not on filedocumented in this encounter Care Teams Automatic Brine Mixer Operator Relationship Specialty Start Date End Date Heladio [place] [id number] [place], [place] [address], [place] [phone] PCP - General 03/05/23 Carlos Joyner MD [address] [place] [address] [phone] Urology 12/09/19 Jadon Murray MD [facility] [address] [facility] [address] [place] [address] Referring Physician Pediatric Surgery 12/09/19 Maru Villagomez, OTILIO Registered Nurse 12/10/19 Ang Slade MD [address] [place] [address] [address] [place] [address] Urology 04/24/20 Carlos Joyner MD [address] [place] [address] Assigned Surgical Provider 12/24/20 Ang Slade MD [address] [place] [address] Urology 12/18/22 Lakshmi Wilhelm PA-C [address] [place] [address] Physician Insolvency Consultant Urology 02/03/23 [place] [address] [place] [address] Assigned PCP 02/06/23 Alissa Perez PA-C [address] [place] [address] Physician Insolvency Consultant Surgery 09/04/23 Lakshmi Wilhelm PA-C [address] [place] [address] Physician Insolvency Consultant Urology 09/16/23 Aidee Valero PA-C [address] [place] [address] Assigned Musculoskeletal Provider 04/17/24 Tanisha Marlow [address] [facility] [address] 03/30/24 documented as of this encounter
--- OUTSIDE RECORDS SUMMARY | 2024-06-07 17:49 | XMS_ITS | Encounter Summary ---
Author Organization [place] Address [address] [place] [address] Care Team Providers Care Unarmed Security Guard Name Role Phone Carlos Joyner MD Unavailable [phone] Jadon Murray MD Unavailable [phone] Maru Villagomez RN Unavailable Unavailable Ang Slade MD Unavailable [phone] Carlos Joyner MD Unavailable [phone] Ang Slade MD Unavailable [phone] Lakshmi Wilhelm-C Unavailable [phone] Heladio Willoughby MD Primary Care Provider [phone] Heladio Willoughby MD Unavailable Alissa Perez PA-C Unavailable [phone] Lakshmi Wilhelm-C Unavailable [phone] Aidee Valero PA-C Unavailable [phone] Encounter Details Date Type Department Care Team [...] st Contact Info) Description 06/15/2024 9:30 AM STEAM BOILER FIREMAN Office Visit [address] [phone] Xu Prince MD [address] [place] [address] 932624 06/15/2024 2:30 PM STEAM BOILER FIREMAN Office Visit [facility] [address] [place] [address] nAdreea Cruz PA-C [address] [place] [address] 07/21/2024 4:00 PM STEAM BOILER FIREMAN Office Visit [facility] [address] [place] [address] [place] [address] [place] [address] documented as of this encounter Visit Diagnoses Not on filedocumented in this encounter Care Teams Unarmed Security Guard Relationship Specialty Start [place] [address] [place] [address] PCP - General 03/05/23 Carlos Joyner MD [address] [place] [address] 739115 Urology 12/09/19 Jadon Murray MD [facility] [address] [phone] Referring Physician Pediatric Surgery 12/09/19 Maru Villagomez, RN Registered Nurse 12/10/19 Ang Slade MD [address] [place] [address] [phone] Urology 04/24/20 Carlos Joyner MD [address] [place] [address] 361015 Assigned Surgical Provider 12/24/20 Ang Slade MD [address] [place] [address] Urology 12/18/22 Lakshmi Wilhelm PA-C [address] [place] [address] 495445 Physician Certified Professional Ergonomist Urology 02/03/23 [place] [address] [place] [address] Assigned PCP 02/06/23 Alissa Perez PA-C [address] [place] [address] Physician Certified Professional Ergonomist Surgery 09/04/23 Lakshmi Wilhelm PA-C [address] [place] [address] Physician Certified Professional Ergonomist Urology 09/16/23 Aidee Valero PA-C [address]09 [place] [address] Assigned Musculoskeletal Provider 04/17/24 Tanisha Marlow 4[address] [facility] [address] 03/30/24 documented as of this encounter
--- OUTSIDE RECORDS SUMMARY | 2024-06-07 17:49 | XMS_ITS | Encounter Summary ---
Author Organization [place] Address [address] [place] [address] Care Team Providers Care Restaurant And Bar Manager Name Role Phone Carlos Joyner MD Unavailable [phone] Jadon Murray MD Unavailable [phone] Maru Villagomez RN Unavailable Unavailable Ang Slade MD Unavailable +[phone] Carlos Joyner MD Unavailable [phone] Ang Slade MD Unavailable +[phone] Lakshmi Wilhelm-C Unavailable Heladio Willoughby MD Primary Care Provider [phone] Heladio Willoughby MD Unavailable Alissa Perez PA-C Unavailable [phone] Lakshmi Wilhelm-C Unavailable +[phone] Aidee Valero PA-C Unavailable Encounter Details Date Type Department Care Team (Late st Contact Info) Description 04/26/2024 [facility] [address] 4th [place] [address] Carlos Joyner MD [address] [place] [address] Recurrent UTI (Primary Dx) Social History [...] UTI and antibiotic being sent to the [facility] in [place]. She voices understanding. Thank you, Hattie Wing RN, BSN Urology Triage Nurse E WINDER documented in this encounter Plan of Treatment Upcoming Encounters Date Type Department Care Team (Late st Contact Info) Description 06/15/2024 9:30 AM TWINE WINDER Office Visit [address] [phone] Xu Prince MD 606 24[facility] 106 [place], [place] 862754 06/15/2024 2:30 PM TWINE WINDER Office Visit [facility] [address] [place] [address] Andreea Cruz PA-C [address] [place] [address] 07/21/2024 4:00 PM TWINE WINDER Office Visit [facility] [address] [place] [address] [place] [address] [place] [address] documented as of this encounter Visit Diagnoses Diagnosis Recurrent UTI- Primary Urinary tract infection, site not specified documented in this encounter Care Teams Restaurant And Bar Manager Relationship Specialty Start Date [place] [id number] [place] [address] PCP - General 03/05/23 Carlos Joyner MD 9 [place] [address] Urology 12/09/19 Jadon Murray MD [facility] 2530 [facility] 550 [place], [place] [id number] Referring Physician Pediatric Surgery 12/09/19 Maru Villagomez, RN Registered Nurse 12/10/19 Ang Slade MD [address] [place] [address] 394 [place], [place] [phone] Urology 04/24/20 Carlos Joyner MD [address] [place] [address] 564105 Assigned Surgical Provider 12/24/20 Ang Slade MD [address] [place] [address] 188025 Urology 12/18/22 Lakshmi Wilhelm PA-C [address] [place] [address] 854735 Physician Transportation Attendant Urology 02/03/23 [place] [address] [place] [address] Assigned PCP 02/06/23 Alissa Perez PA-C [address] [place] [address] 652495 Physician Transportation Attendant Surgery 09/04/23 Lakshmi Wilhelm PA-C [address] [place] [address] 057705 Physician Transportation Attendant Urology 09/16/23 Aidee Valero PA-C [address] [place] [address] 600185 Assigned Musculoskeletal Provider 04/17/24 Tanisha Marlow 4120 [facility] [address] 03/30/24 documented as of this encounter
--- OUTSIDE RECORDS SUMMARY | 2024-06-07 17:49 | XMS_ITS | Encounter Summary ---
Author Organization [place] Address [address] [place] [address]. [place] [address] Care Team Providers Care Engineering Associate Name Role Phone Carlos Joyner MD Unavailable [phone] Jadon Murray MD Unavailable [phone] Maru Villagomez RN Unavailable Unavailable Ang Slade MD Unavailable +[phone] Carlos Joyner MD Unavailable +[phone] Ang Slade MD Unavailable [phone] Lakshmi Wilhelm-C Unavailable +[phone] Heladio Willoughby MD Primary Care Provider [phone] Heladio Willoughby MD Unavailable Alissa Perez PA-C Unavailable [phone] Lakshmi Wilhelm-C Unavailable [phone] Aidee Valero PA-C Unavailable [phone] Reason for Visit * Reason Onset Date Comments Forms 02/06/2024 [facility] ecial Education Cooperative - Medication Authorization Form Encounter Details Date Type Department Care Team (Late st Contact Info) Description 02/06/2024 [facility] [address] [place] [address] [place] [address] [place] [address] Forms ([facility] Education Manager Dialysis... Social History Tobacco Use Types Packs/Day Years [...] in an abandoned building, in an overnight penitentiary, or couch-surfing.) Yes 04/16/2023 Are you worried [...] Authorization Form Who is the form from? [facility] [employer] [facility] (if other please explain) Where did/will the form come from? form was sent via [employer] When is form/letter needed by: [facility] How would you like the form/letter returned: [employer] Printed forms and placed in provider's basket for review and signature Kasia Gutierrez Lead Compensation Business Partner [facility] documented in this encounter Plan of Treatment Upcoming Encounters Date Type Department Care Team (Late st Contact Info) Description 06/15/2024 9:30 AM REPORT PROGRAMMER Office Visit [facility] [address] [place] [phone] Xu Prince MD [address] [place], [place] [address] [address] 150114 06/15/2024 2:30 PM REPORT PROGRAMMER [facility] [address] [place] [phone] Andreea Cruz PA-C [address] [place] [address] 07/21/2024 4:00 PM REPORT PROGRAMMER [facility] [address] [place] [address] [place] [address] [place], [place] 8962468 documented as of this encounter Visit Diagnoses Not on filedocumented in this encounter Care Teams Engineering Associate Relationship Specialty Start [place] [address] [place], [place] [phone] PCP - General 03/05/23 Carlos Joyner MD [address] [place], [place] 611225 Urology 12/09/19 Jadon Murray MD [facility] 2530 [facility] 550 [place] [address] Referring Physician Pediatric Surgery 12/09/19 Maru Villagomez, RN Registered Nurse 12/10/19 Ang Slade MD [address] [place] [address] 394 [place] [address] Urology 04/24/20 Carlos Joyner MD [address] [place] [address] 072285 Assigned Surgical Provider 12/24/20 Ang Slade MD [address] [place] [address] MD Urology 12/18/22 Lakshmi Wilhelm PA-C [address] [place] [address] 182545 Physician Hog Raiser Urology 02/03/23 [place] [address] [place] [address] Assigned PCP 02/06/23 Alissa Perez PA-C [address] [place] [address] Physician Hog Raiser Surgery 09/04/23 Lakshmi Wilhelm PA-C [address] [place] [address] 888755 Physician Hog Raiser Urology 09/16/23 Aidee Valero PA-C [address] [place] [address] 878095 Assigned Musculoskeletal Provider 04/17/24 Tanisha Marlow 4120 [place] [address] 03/30/24 documented as of this encounter
--- OUTSIDE RECORDS SUMMARY | 2024-06-07 17:49 | XMS_ITS | Encounter Summary ---
Author Organization [place] Address [address] [place] [address] Care Team Providers Care Mortgage Accounting Clerk Name Role Phone Carlos Joyner MD Unavailable [phone] Jadon Murray MD Unavailable [phone] Maru Villagomez RN Unavailable Unavailable Ang Slade MD Unavailable [phone] Carlos Joyner MD Unavailable [phone] Ang Slade MD Unavailable [phone] Lakshmi Wilhelm PA-C Unavailable Heladio Willoughby MD Primary Care Provider [phone] Heladio Willoughby MD Unavailable Alissa Perez PA-C Unavailable [phone] Lakshmi Wilhelm PA-C Unavailable [phone] Aidee Valero PA-C Unavailable [phone] Encounter Details Date Type Department Care Team (Late st Contact Info) Description 09/18/2023 [facility] U[facility] Clinic [address] [place] [address] Carlos Jonyer MD [address] [place] [address] Social History Tobacco Use Types Packs/Day [...] in an abandoned building, in an overnight fpc, or couch-surfing.) Yes 04/16/2023 Are you worried [...] st Contact Info) Description 06/15/2024 9:30 AM PEDIATRIC DIETICIAN Office Visit [address] [address] Xu Prince MD [address] [place] [address] 06/15/2024 2:30 PM PEDIATRIC DIETICIAN Office Visit [facility] [address] [place] [address] Andreea Cruz, PAEarlC [address] [facility] [place], [place] [address] 07/21/2024 4:00 PM PEDIATRIC DIETICIAN Office Visit [facility] [address] [facility] [place] [address] [place] [address] [place], [place] 4793468 documented as of this encounter Visit Diagnoses Not on filedocumented in this encounter Care Teams Mortgage Accounting Clerk Relationship Specialty [place] [address] [facility] [place], [place] [phone] PCP - General 03/05/23 Carlos Joyner MD [address] [place] [address] 728425 Urology 12/09/19 Jadon Murray MD [facility] [address] [facility] 550 [place] [address] Referring Physician Pediatric Surgery 12/09/19 Maru Villagomez, OTILIO Registered Nurse 12/10/19 Ang Slade MD [address] [place] [address] Urology 04/24/20 Carlos Joyner MD [address] [place] [address] 728195 Assigned Surgical Provider 12/24/20 Ang Slade MD [address] [place] [address] Urology 12/18/22 Lakshmi Wilhelm PA-C [address] [place] [address] 084535 Physician It Security Consultant Urology 02/03/23 [place] [address] [facility] [address] Assigned PCP 02/06/23 Alissa Perez PA-C [address] [place] [address]95 Physician It Security Consultant Surgery 09/04/23 Lakshmi Wilhelm PA-C [address] [place] [address] Physician It Security Consultant Urology 09/16/23 Aidee Valero PA-C [address] [place] [address] 877975 Assigned Musculoskeletal Provider 04/17/24 Tanisha Marlow 4120 [facility] [address] 03/30/24 documented as of this encounter
--- OUTSIDE RECORDS SUMMARY | 2024-06-07 17:49 | XMS_ITS | Encounter Summary ---
Author Organization [place] Address [address] [place] [address] Care Team Providers Care Instrumentation Fitter Name Role Phone Carlos Joyner MD Unavailable [phone] Jadon Murray MD Unavailable [phone] Maru Villagomez RN Unavailable Unavailable Ang Slade MD Unavailable [phone] Carlos Joyner MD Unavailable +[phone] Ang Slade MD Unavailable [phone] Lakshmi Wilhelm-C Unavailable [phone] Heladio Willoughby MD Primary Care Provider [phone] Heladio Willoughby MD Unavailable Alissa Perez PA-C Unavailable [phone] Lakshmi Wilhelm-C Unavailable [phone] Aidee Valero PA-C Unavailable [phone] Encounter Details Date Type Department Care Team (Late st Contact Info) Description 09/08/2023 [facility] Advice [address] [address] Bhavna Ferris Social History Tobacco [...] st Contact Info) Description 06/15/2024 9:30 AM ORCHESTRA DIRECTOR Office Visit [address] [address] Xu Prince MD [address] [place] [address] 501444 06/15/2024 2:30 PM ORCHESTRA DIRECTOR Office Visit [facility] [address] [place] [address] Andreea Cruz PA-C [address] [place], [place] 6713268 07/21/2024 4:00 PM ORCHESTRA DIRECTOR Office Visit [facility] [place] [address] [address] [phone] [place] [address] [address] [place] [phone] documented as of this encounter Visit Diagnoses Not on filedocumented in this encounter Care Teams Instrumentation Fitter Relationship Specialty [place] [address] [address] [phone] PCP - General 03/05/23 Carlos Joyner MD [address] [place] [address] Urology 12/09/19 Jadon Murray MD [facility] [address] [facility] 550 [place] [address] Referring Physician Pediatric Surgery 12/09/19 Maru Villagomez, OTILIO Registered Nurse 12/10/19 Ang Slade MD [address] [place] [address] Urology 04/24/20 Carlos Joyner MD [address] [place] [address] 6[address] Assigned Surgical Provider 12/24/20 Ang Slade MD [address] [address] Urology 12/18/22 Lakshmi Wilhelm PA-C [address] [place] [address] 18485 Physician Blind Hanger Urology 02/03/23 [place] [address] [place] [address] Assigned PCP 02/06/23 Alissa Perez PA-C [address] [place] [address] Physician Blind Hanger Surgery 09/04/23 Lakshmi Wilhelm PA-C [address] [place] [address] Physician Blind Hanger Urology 09/16/23 Aidee Valero PA-C [address] [place] [address] Assigned Musculoskeletal Provider 04/17/24 Tanisha Marlow 4120 [facility] [address] 03/30/24 documented as of this encounter
--- OUTSIDE RECORDS SUMMARY | 2024-06-07 17:49 | XMS_ITS | Encounter Summary ---
Author Organization [place] Address [address] [place] [address] Care Team Providers Care Arrow Point Attacher Name Role Phone Carlos Joyner MD Unavailable [phone] Jaodn Murray MD Unavailable [phone] Maru Villagomez RN Unavailable Unavailable Ang Slade MD Unavailable [phone] Carlos Joyner MD Unavailable +[phone] Ang Slade MD Unavailable +[phone] Lakshmi Wilhelm-C Unavailable +[phone] Heladio Willoughby MD Primary Care Provider [phone] Heladio Willoughby MD Unavailable Alissa Perez PA-C Unavailable [phone] Lakshmi Wilhelm-C Unavailable [phone] Aidee Valero PA-C Unavailable [phone] Encounter Details Date Type Department Care Team (Late st Contact Info) Description 07/01/2023 [facility] Advice [facility] [address] [place] [address] Joao Arceo MA Social History Tobacco [...] st Contact Info) Description 06/15/2024 9:30 AM LINOLEUM PRINTER Office Visit [address] [address] Xu Prince MD [facility] [address] [address] 06/15/2024 2:30 PM LINOLEUM PRINTER Office Visit [facility] [address] [place] [phone] Andreea Cruz PAYuki [address] [place], [place] 4329468 07/21/2024 4:00 PM LINOLEUM PRINTER Office Visit [facility] [place] [address] [address] [phone] [place] [address] [place] [address] documented as of this encounter Visit Diagnoses Not on filedocumented in this encounter Care Teams Arrow Point Attacher Relationship Specialty [place] [address] [address] [phone] PCP - General 03/05/23 Carlos Joyner MD [address] [place] [address] Urology 12/09/19 Jadon Murray MD [facility] 2530 [facility] 550 [place] [address] Referring Physician Pediatric Surgery 12/09/19 Maru Villagomez, OTILIO Registered Nurse 12/10/19 Ang Slade MD [address] [place] [address] 449235 Urology 04/24/20 Carlos Joyner MD [address] [place] [address] 26692 Assigned Surgical Provider 12/24/20 Ang Slade MD [address] [address] Urology 12/18/22 Lakshmi Wilhelm PA-C 909 [place] [address] Physician Cartridge Assembler Urology 02/03/23 [place] [address] [place] [address] Assigned PCP 02/06/23 Alissa Perez PA-C [address] [place] [address] Physician Cartridge Assembler Surgery 09/04/23 Lakshmi Wilhelm PA-C [address] [place] [address] Physician Cartridge Assembler Urology 09/16/23 Aidee Valero PA-C [address] [place] [address] Assigned Musculoskeletal Provider 04/17/24 Tanisha Marlow 4120 [facility] [place] [address] 03/30/24 documented as of this encounter
--- OUTSIDE RECORDS SUMMARY | 2024-06-07 17:50 | XMS_ITS | Encounter Summary ---
Author Organization [place] Address [address] [place] [address]. [place] [address] Care Team Providers Care Retail Wireless Associate Name Role Phone Carlos Joyner MD Unavailable [phone] Jadon Murray MD Unavailable +[phone] Maru Villagomez RN Unavailable Unavailable Ang Slade MD Unavailable +[phone] Carlos Joyner MD Unavailable +[phone] Ang Slade MD Unavailable [phone] Lakshmi Wilhelm PA-C Unavailable +[phone] Heladio Willoughby MD Primary Care Provider [phone] Heladio Willoughby MD Unavailable Alissa Perez PA-C Unavailable [phone] Lakshmi Wilhelm PA-C Unavailable [phone] Aidee Valero PA-C Unavailable [phone] Encounter Details Date Type Department Care Team (Late st Contact Info) Description 04/08/2023 [facility] Medical Advice [facility] [address] 4th [place] [address] Rosita Velasco, RN Social History [...] in an overnight long-term, or couch-surfing.) Yes 04/11/2023 Are you worried [...] st Contact Info) Description 06/15/2024 9:30 AM HAND THERAPIST Office Visit [address] [address] Xu Prince MD [address] [place] [address] 041354 06/15/2024 2:30 PM HAND THERAPIST Office Visit [facility] [address] [place] [address] Andreea Cruz PA-C [address] [place], [place] 5859268 07/21/2024 4:00 PM HAND THERAPIST Office Visit [facility] [address] [address] [phone] [place] [address] [address] [place] 8116568 documented as of this encounter Visit Diagnoses Not on filedocumented in this encounter Care Teams Retail Wireless Associate Relationship Specialty [place] [address] [address] [phone] PCP - General 03/05/23 Carlos Joyner MD [address] [place] [address] Urology 12/09/19 Jadon Murray MD [facility] [address] [facility] 550 [place] [address] Referring Physician Pediatric Surgery 12/09/19 Maru Villagomez, OTILIO Registered Nurse 12/10/19 Ang Slade MD [address] [place] [address] Urology 04/24/20 Carlos Joyner MD [address] [place] [address] Assigned Surgical Provider 12/24/20 Ang Slade MD [address] [address] Urology 12/18/22 Lakshmi Wilhelm PA-C [address] [place] [address]362 Physician Public Health Doctor Urology 02/03/23 [place] [address] [place] [address] Assigned PCP 02/06/23 Alissa Perez PA-C [address] [place] [address]67 Physician Public Health Doctor Surgery 09/04/23 Lakshmi Wilhelm PA-C [address] [place] [address] Physician Public Health Doctor Urology 09/16/23 Aidee Valero PA-C [address] [place] [address]106 Assigned Musculoskeletal Provider 04/17/24 Tanisha Marlow 4120 [facility] [address] 03/30/24 documented as of this encounter
--- OUTSIDE RECORDS SUMMARY | 2024-06-07 17:50 | XMS_ITS | Encounter Summary ---
Author Organization [place] Address [address] [place] [address] Care Team Providers Care Wood Floor Refinisher Name Role Phone Carlos Joyner MD Unavailable [phone] Jadon Murray MD Unavailable + [phone] Maru Villagomez RN Unavailable Unavailable Ignacia Duran MD Primary Care Provider [phone] Ang Slade MD Unavailable [phone] Carlos Joyner MD Unavailable [phone] Ang Slade MD Unavailable [phone] Lakshmi Wilhelm-C Unavailable [phone] Heladio Willoughby MD Primary Care Provider [phone] Heladio Willoughby MD Unavailable Alissa Perez PA-C Unavailable [phone] Lakshmi Wilhelm-C Unavailable [phone] Aidee Valero PA-C Unavailable [phone] Encounter Details Date Type Department Care Team (Late st Contact Info) Description 01/07/2023 [facility] [address] [place] [address] Analisa Palacio, OTILIO Social History [...] st Contact Info) Description 06/15/2024 9:30 AM SULFURIC ACID PLANT OPERATOR Office Visit [facility] [address] [place] [phone] Xu Prince MD [address] [place] [address] [phone] 06/15/2024 2:30 PM SULFURIC ACID PLANT OPERATOR Office Visit [facility] [address] [place] [address] Andreea Cruz PA-C [address] [place] [address] 07/21/2024 4:00 PM SULFURIC ACID PLANT OPERATOR Office Visit [facility] [address] [place] [address] [place] [address] [place] [address] documented as of this encounter Visit Diagnoses Not on filedocumented in this encounter Additional Health Concerns Infection Onset Date Last Indicated Resolved Time MRSA Comment:Added from external infection. Pt has had Staph infections but never MRSA from Care everywhere chart review. Removing MRSA 02.06.23 06/17/2019 02/06/2023 9:41 AM C DT documented as of this encounter Care Teams Wood Floor Refinisher Relationship Specialty Start Date End Date Ignacia Duran MD PCP - General Pediatrics 01/20/20 03/04/23 [place] [address] [place] [address] PCP - General 03/05/23 Carlos Joyner MD [address] [place] [address] Urology 12/09/19 Jadon Murray MD [facility] [address] [address] Referring Physician Pediatric Surgery 12/09/19 Maru Villagomez, OTILIO Registered Nurse 12/10/19 Ang Slade MD [address] [place] [address] Urology 04/24/20 Carlos Joyner MD [address] [place] [address] Assigned Surgical Provider 12/24/20 Ang Slade MD [address] [place] [address] Urology 12/18/22 Lakshmi Wilhelm PA-C [address] [place] [address] Physician Manager Tax Urology 02/03/23 [place] [address] [place] [address] Assigned PCP 02/06/23 Alissa Perez PA-C [address] [place] [address] 437355 Physician Manager Tax Surgery 09/04/23 Lakshmi Wilhelm PA-C [address] [place] [address] [phone] Physician Manager Tax Urology 09/16/23 Aidee Valero PA-C [address] [place] [address] 60479455 Assigned Musculoskeletal Provider 04/17/24 Tanisha Marlow 4120 [facility] [address] 03/30/24 documented as of this encounter
--- OUTSIDE RECORDS SUMMARY | 2024-06-07 17:50 | XMS_ITS | Encounter Summary ---
Author Organization [place] Address [address] [place] [address] Care Team Providers Care Center Machine Set Up Operator Name Role Phone Carlos Joyner MD Unavailable [phone] Jadon Murray MD Unavailable [phone] Maru Villagomez RN Unavailable Unavailable Ignacia Duran MD Primary Care Provider Ang Slade MD Unavailable +[phone] Carlos Joyner MD Unavailable +[phone] Annalise Orta PA-C Unavailable +[phone] Ang Slade MD Unavailable [phone] Lakshmi Wilhelm-C Unavailable [phone] Heladio Willoughby MD Primary Care Provider [phone] Heladio Willoughby MD Unavailable Alissa Perez PA-C Unavailable [phone] Lakshmi Wilhelm PA-C Unavailable +[phone] Aidee Valero PA-C Unavailable [phone] Encounter Details Date Type Department Care Team (Late st Contact Info) Description 04/16/2021 [facility] [address] [place] [address] Berna Britton Social History Tobacco [...] Contact Info) Description 06/15/2024 9:30 AM RETAIL EXPERIENCE SPECIALIST Office Visit [facility] [address] [place] [phone] Xu Prince MD [address] [place] [address] 219924 06/15/2024 2:30 PM RETAIL EXPERIENCE SPECIALIST [facility] [address] [place] [address] Andreea Cruz PA-C [address] [place] [address] 07/21/2024 4:00 PM RETAIL EXPERIENCE SPECIALIST Office Visit [facility] [address] [place] [address] [place] [address] [place] [address] documented as of this encounter Visit Diagnoses Not on filedocumented in this encounter Additional Health Concerns Infection Onset Date Last Indicated Resolved Time MRSA Comment:Added from external infection. Pt has had Staph infections but never MRSA from Care everywhere chart review. Removing MRSA 02.06.23 06/17/2019 02/06/2023 9:41 AM C DT documented as of this encounter Care Teams Center Machine Set Up Operator Relationship Specialty Start Date End Date Ignacia Duran MD PCP - General Pediatrics 01/20/20 03/04/23 [place] [address] [place] [address] PCP - General 03/05/23 Carlos Joyner MD [address] [place] [address] 11804 Urology 12/09/19 Jadon Murray MD [facility] 2530 [facility] [address] [address] Referring Physician Pediatric Surgery 12/09/19 Maru Villagomez, RN Registered Nurse 12/10/19 Ang Slade MD [address] [place] [address] Urology 04/24/20 Carlos Joyner MD [address] [place] [address] 09195 Assigned Surgical Provider 12/24/20 Annalise Orta PA-C 5200 [place] [address] Assigned Cancer Care Provider 05/13/21 11/01/22 Ang Slade MD [address] [place] [address]29 Urology 12/18/22 Lakshmi Wilhelm PA-C [address] [place] [address] 11791 Physician Used Car Sales Manager Urology 02/03/23 [place] [address] [place] [address] Assigned PCP 02/06/23 Alissa Perez PA-C [address] [place] [address]16 Physician Used Car Sales Manager Surgery 09/04/23 Lakshmi Wilhelm PA-C [address] [place] [address] 063145 Physician Used Car Sales Manager Urology 09/16/23 Aidee Valero PA-C [address] [place] [address] 069355 Assigned Musculoskeletal Provider 04/17/24 Tanisha Marlow 4120 [facility] [address] 03/30/24 documented as of this encounter
--- OUTSIDE RECORDS SUMMARY | 2024-06-07 17:50 | XMS_ITS | Encounter Summary ---
Author Organization [place] Address [address] [place] [address] 19573 Care Team Providers Care Plastics Fabricator And Assembler Name Role Phone Carlos Joyner MD Unavailable [phone] Jadon Murray MD Unavailable [phone] Maru Villagomez RN Unavailable Unavailable Ignacia Duran MD Primary Care Provider [phone] Carlos Joyner MD Unavailable [phone] Ang Slade MD Unavailable +[phone] Ang Slade MD Unavailable +[phone] Carlos Joyner MD Unavailable +[phone] Annalise Orta PA-C Unavailable +[phone] Ang Slade MD Unavailable +[phone] Lakshmi Wilhelm-C Unavailable [phone] Heladio Willoughby MD Primary Care Provider [phone] Heladio Willoughby MD Unavailable Alissa Perez PA-C Unavailable [phone] Lakshmi Wilhelm-C Unavailable [phone] Aidee Valero PA-C Unavailable [phone] Reason for Visit * Reason Onset Date Comments Call Back 08/01/2020 Miscommunication between urinary results Encounter Details Date Type Department Care Team (Late st Contact Info) Description 08/01/2020 Telephone [facility] [address] [place] [phone] Ang Slade MD 420 [facility] 394 [place], [place] 799255 Call Back (Miscommunication between urinary results) Social [...] COVID-19? No / Unsure 08/02/2020 8:37 AM SUPERVISOR ELECTROLYTIC TINNING documented as of this encounter Miscellaneous Notes * Telephone Encounter - Diego Sams - 08/01/2020 11:21 AM CST [facility] Phone Message May a detailed message be left on voicemail: yes Reason for Call: Other: Cristine with [facility] calling because pt's primary, , would like to speak with or a nurse regarding pt's urinary results. Reports that there is some miscommunication that she wants to clarify. Please call back. Action Taken: Message routed to: [facility] uro Travel Screening: Not Applicable RVISOR ELECTROLYTIC TINNING documented in this encounter Plan of Treatment Upcoming Encounters Date Type Department Care Team (Late st Contact Info) Description 06/15/2024 9:30 AM SUPERVISOR ELECTROLYTIC TINNING Office Visit [address] [address] Xu Prince MD [address] [place] [address] 106 [place] [address] 06/15/2024 2:30 PM SUPERVISOR ELECTROLYTIC TINNING [facility] [address] [place] [phone] Andreea Cruz PA-C [address] [place], [place] 8104868 07/21/2024 4:00 PM SUPERVISOR ELECTROLYTIC TINNING [facility] [address] [place] [phone] [place] [address] [place], [place] 4598368 documented as of this encounter Visit Diagnoses Not on filedocumented in this encounter Additional Health Concerns Infection Onset Date Last Indicated Resolved Time MRSA Comment:Added from external infection. Pt has had Staph infections but never MRSA from Care everywhere chart review. Removing MRSA 02.06.23 06/17/2019 02/06/2023 9:41 AM C DT documented as of this encounter Care Teams Plastics Fabricator And Assembler Relationship Specialty Start Date End Date Ignacia Duran MD PCP - General Pediatrics 01/20/20 03/04/23 [place] [address] [place], [place] 6469068 PCP - General 03/05/23 Carlos Joyner MD 909 [place] [address] Urology 12/09/19 Jadon Murray MD [facility] [address] [address] Referring Physician Pediatric Surgery 12/09/19 Maru Villagomez, RN Registered Nurse 12/10/19 Carlos Joyner MD 909 [place], [place] 138065 Assigned Surgical Provider 03/17/20 Ang Slade MD 420 [facility] 394 [place], [place] 264795 Urology 04/24/20 Ang Slade MD 420 [facility] 394 [place], [place] 736435 Assigned Surgical Provider 08/13/20 Carlos Joyner MD [address] [place] [address] 686805 Assigned Surgical Provider 12/24/20 Annalise Orta PA-C 5200 [place] [address] Assigned Cancer Care Provider 05/13/21 11/01/22 Ang Slade MD [address] 116[address] Urology 12/18/22 Lakshmi Wilhelm PA-C [address] [place] [address] 906545 Physician Station Operator Urology 02/03/23 [place] [address] [facility] [place] [address] Assigned PCP 02/06/23 Alissa Perez PA-C [address] [place] [address] Physician Station Operator Surgery 09/04/23 Lakshmi Wilhelm PA-C [address] [place] [address] Physician Station Operator Urology 09/16/23 Aidee Valero PA-C [address] [place] [address]34 Assigned Musculoskeletal Provider 04/17/24 Tanisha Marlow 4120 [facility] [address] 03/30/24 documented as of this encounter
--- OUTSIDE RECORDS SUMMARY | 2024-06-07 17:50 | XMS_ITS | Encounter Summary ---
Author Organization [place] Address [address] [place] [address] Care Team Providers Care Screedman Name Role Phone Carlos Joyner MD Unavailable [phone] Jadon Murray MD Unavailable [phone] Maru Villagomez RN Unavailable Unavailable Ang Slade MD Unavailable [phone] Carlos Joyner MD Unavailable +[phone] Ang Slade MD Unavailable [phone] Lakshmi Wilhelm PA-C Unavailable [phone] Heladio Willoughby MD Primary Care Provider [phone] Heladio Willoughby MD Unavailable Alissa Perez PA-C Unavailable [phone] Lakshmi Wilhelm PA-C Unavailable [phone] Aidee Valero PA-C Unavailable [phone] Encounter Details Date Type Department Care Team (Late st Contact Info) Description 06/25/2023 [facility] [address] [place] [address] Carlos Joyner MD [address] [place] [address] Social History Tobacco Use Types Packs/Day [...] st Contact Info) Description 06/15/2024 9:30 AM INTENSIVE CARE ANAESTHETIST Office Visit [address] [address] Xu Prince MD [address] [place] [address] 06/15/2024 2:30 PM INTENSIVE CARE ANAESTHETIST Office Visit [facility] [address] [place] [address] Andreea Cruz, PAEarlC [address] [facility] [place], [place] 8188068 07/21/2024 4:00 PM INTENSIVE CARE ANAESTHETIST Office Visit [facility] [address] [facility] [place] [address] [place] [address] [address] [place], [place] 5046268 documented as of this encounter Visit Diagnoses Not on filedocumented in this encounter Care Teams Screedman Relationship Specialty Start [place] [address] [facility] [place], [place] 0515968 PCP - General 03/05/23 Carlos Joyner MD [address] [place] [address] 573515 Urology 12/09/19 Jadon Murray MD [facility] 2530 [facility] 550 [place] [address] Referring Physician Pediatric Surgery 12/09/19 Maru Villagomez, OTILIO Registered Nurse 12/10/19 Ang Slade MD [address] [place] [address] Urology 04/24/20 Carlos Joyner MD [address] [place] [address] 088435 Assigned Surgical Provider 12/24/20 Ang Slade MD [address] [place] [address] Urology 12/18/22 Lakshmi Wilhelm PA-C [address] [place] [address] 403815 Physician Benefit Specialist Urology 02/03/23 [place] [address] [facility] [place] [address] Assigned PCP 02/06/23 Alissa Perez PA-C [address] [place] [address] Physician Benefit Specialist Surgery 09/04/23 Lakshmi Wilhelm PA-C [address] [place] [address]779 Physician Benefit Specialist Urology 09/16/23 Aidee Valero PA-C [address] [place] [address] 877015 Assigned Musculoskeletal Provider 04/17/24 Tanisha Marlow 4120 [facility] [address] 03/30/24 documented as of this encounter
--- OUTSIDE RECORDS SUMMARY | 2024-06-07 17:50 | XMS_ITS | Encounter Summary ---
Author Organization [place] Address [address] [place] [address] Care Team Providers Care Milk Tanker Driver Name Role Phone Carlos Joyner MD Unavailable [phone] Jadon Murray MD Unavailable [phone] Maru Villagomez RN Unavailable Unavailable Ignacia Duran MD Primary Care Provider Ang Slade MD Unavailable [phone] Carlos Joyner MD Unavailable [phone] Annalise Orta PA-C Unavailable [phone] Ang Slade MD Unavailable Lakshmi Wilhelm-C Unavailable Heladio Willoughby MD Primary Care Provider Heladio Willoughby MD Unavailable Alissa Perez PA-C Unavailable [phone] Lakshmi Wilhelm PA-C Unavailable Aidee Valero PA-C Unavailable [phone] Encounter Details Date Type Department Care Team (Late st Contact Info) Description 10/01/2021 [facility] [address] [place] [address] Carlos Joyner MD [address] [place] [address] Social History Tobacco Use Types Packs/Day [...] st Contact Info) Description 06/15/2024 9:30 AM ESCAPEMENT MAKER Office Visit [facility] 606 [facility] [place] [address] Xu Prince MD [address] [place] [address] 936844 06/15/2024 2:30 PM ESCAPEMENT MAKER Office Visit [facility] [address] [place] [address] Andreea Cruz PA-C [address] [place] [address] 07/21/2024 4:00 PM ESCAPEMENT MAKER Office Visit [facility] [address] [place] [address] [place] [address] [place], [place] 4064068 documented as of this encounter Visit Diagnoses Not on filedocumented in this encounter Additional Health Concerns Infection Onset Date Last Indicated Resolved Time MRSA Comment:Added from external infection. Pt has had Staph infections but never MRSA from Care everywhere chart review. Removing MRSA 02.06.23 06/17/2019 02/06/2023 9:41 AM C DT documented as of this encounter Care Teams Milk Tanker Driver Relationship Specialty Start Date End Date Ignacia Duran MD PCP - General Pediatrics 01/20/20 03/04/23 [place] [address] [facility] [place] [address] PCP - General 03/05/23 Carlos Joyner MD [address] [place] [address] Urology 12/09/19 Jadon Murray MD [facility] [address] [address] Referring Physician Pediatric Surgery 12/09/19 Maru Villagomez, OTILIO Registered Nurse 12/10/19 Ang Slade MD [address] [place] [address] Urology 04/24/20 Carlos Joyner MD [address] [place] [address] Assigned Surgical Provider 12/24/20 Annalise Orta PA-C 5200 [place] [address] Assigned Cancer Care Provider 05/13/21 11/01/22 Ang Slade MD [address] [place] [address] Urology 12/18/22 Lakshmi Wilhelm PA-C [address] [place] [address] 069715 Physician Corporate Learning Consultant Urology 02/03/23 [place] [address] [place] [address] Assigned PCP 02/06/23 Alissa Perez PA-C [address] [place] [address] 628275 Physician Corporate Learning Consultant Surgery 09/04/23 Lakshmi Wilhelm PA-C [address] [place] [address] 681715 Physician Corporate Learning Consultant Urology 09/16/23 Aidee Valero PA-C [address] [place] [address] 644405 Assigned Musculoskeletal Provider 04/17/24 Tanisha Marlow 4120 [facility] [address] 03/30/24 documented as of this encounter
--- OUTSIDE RECORDS SUMMARY | 2024-06-07 17:50 | XMS_ITS | Encounter Summary ---
Author Organization [place] Address [address] [place] [address] Care Team Providers Care Take Up Operator Name Role Phone Carlos Joyner MD Unavailable [phone] Jadon Murray MD Unavailable [phone] Maru Villagomez RN Unavailable Unavailable Ignacia Duran MD Primary Care Provider Ang Slade MD Unavailable [phone] Carlos Joyner MD Unavailable +[phone] Annalise Orta PA-C Unavailable [phone] Ang Slade MD Unavailable [phone] Lakshmi Wilhelm-C Unavailable [phone] Heladio Willoughby MD Primary Care Provider [phone] Heladio Willoughby MD Unavailable Alissa Perez PA-C Unavailable [phone] Lakshmi Wilhelm PA-C Unavailable [phone] Aidee Valero PA-C Unavailable [phone] Encounter Details Date Type Department Care Team (Late st Contact Info) Description 06/19/2021 [facility] Clinic [address] [address] Jenna Mcfadden, RN Social History [...] COVID-19? No / Unsure 06/19/2021 11:16 AM VEGETABLE TIER documented as of this encounter Plan of Treatment Upcoming Encounters Date Type Department Care Team (Late st Contact Info) Description 06/15/2024 9:30 AM VEGETABLE TIER Office Visit [facility] [address] [place] [address] Xu Prince MD [address] [place] [address] 169624 06/15/2024 2:30 PM VEGETABLE TIER [facility] [address] [place] [address] Andreea Cruz PA-C [address] [place] [address] 07/21/2024 4:00 PM VEGETABLE TIER [facility] [address] [place] [address] [place] [address] [place] [address] documented as of this encounter Visit Diagnoses Not on filedocumented in this encounter Additional Health Concerns Infection Onset Date Last Indicated Resolved Time MRSA Comment:Added from external infection. Pt has had Staph infections but never MRSA from Care everywhere chart review. Removing MRSA 9.14.23 06/17/2019 02/06/2023 9:41 AM C DT documented as of this encounter Care Teams Take Up Operator Relationship Specialty Start Date End Date Ignacia Duran MD PCP - General Pediatrics 01/20/20 03/04/23 [place] [address] [facility] [place] [address] PCP - General 03/05/23 Carlos Joyner MD [address] [place] [address] Urology 12/09/19 Jadon Murray MD [facility] [address] [id number] Referring Physician Pediatric Surgery 12/09/19 Maru Villagomez, OTILIO Registered Nurse 12/10/19 Ang Slade MD [address] [place] [address] Urology 04/24/20 Carlos Joyner MD [address] [place] [address] Assigned Surgical Provider 12/24/20 Annalise Orta PA-C 5200 [place] [address] Assigned Cancer Care Provider 05/13/21 11/01/22 Ang Slade MD [address] [place] [address] 406495 Urology 12/18/22 Lakshmi Wilhelm PA-C [address] [place] [address] 352265 Physician Joinery Machinist Urology 02/03/23 [place] [address] [place] [address] Assigned PCP 02/06/23 Alissa Perez PA-C [address] [place] [address] 797255 Physician Joinery Machinist Surgery 09/04/23 Lakshmi Wilhelm PA-C [address] [place] [address] 373175 Physician Joinery Machinist Urology 09/16/23 Aidee Valero PA-C 909 [place], [place] 226045 Assigned Musculoskeletal Provider 04/17/24 Tanisha Marlow 4120 [facility] [address] 03/30/24 documented as of this encounter
--- OUTSIDE RECORDS SUMMARY | 2024-06-07 17:50 | XMS_ITS | Encounter Summary ---
Author Organization [place] Address [address] [place] [address]. [place] [address] Care Team Providers Care Distillery Supervisor Name Role Phone Carlos Joyner MD Unavailable [phone] Jadon Murray MD Unavailable [phone] Maru Villagomez RN Unavailable Unavailable Ang Slade MD Unavailable [phone] Carlos Joyner MD Unavailable +[phone] Ang Slade MD Unavailable [phone] Lakshmi Wilhelm PA-C Unavailable [phone] Heladio Willoughby MD Primary Care Provider [phone] Heladio Willoughby MD Unavailable Alissa Perez PA-C Unavailable [phone] Lakshmi Wilhelm PA-C Unavailable [phone] Aidee Valero PA-C Unavailable [phone] Encounter Details Date Type Department Care Team (Late st Contact Info) Description 05/05/2023 [facility] [address] 4th [place] [address] Rosita Velasco, RN Social History [...] st Contact Info) Description 06/15/2024 9:30 AM MEDICAL LABORATORY ASSISTANT Office Visit [address] [address] Xu Prince MD [address] [place] [address] 547294 06/15/2024 2:30 PM MEDICAL LABORATORY ASSISTANT Office [facility] [address] [place] [address] Andreea Cruz PA-C [address] [place], [place] 1504168 07/21/2024 4:00 PM MEDICAL LABORATORY ASSISTANT Office Visit [facility] [place] [address] [address] [phone] [place] [address] [address] [place] 7884568 documented as of this encounter Visit Diagnoses Not on filedocumented in this encounter Care Teams Distillery Supervisor Relationship Specialty [place] [address] [address] [phone] PCP - General 03/05/23 Carlos Joyner MD [address] [place] [address] Urology 12/09/19 Jadon Murray MD [facility] 2530 [facility] 550 [place] [address] Referring Physician Pediatric Surgery 12/09/19 Maru Villagomez, OTILIO Registered Nurse 12/10/19 Ang Slade MD [address] [place] [address] Urology 04/24/20 Carlos Joyner MD [address] [place] [address] Assigned Surgical Provider 12/24/20 Ang Slade MD [address] [address] Urology 12/18/22 Lakshmi Wilhelm PA-C [address] [place] [address]87 Physician Account Manager Trainee Urology 02/03/23 [place] [address] [place] [address] Assigned PCP 02/06/23 Alissa Perez PA-C [address] [place] [address] Physician Account Manager Trainee Surgery 09/04/23 Lakshmi Wilhelm PA-C [address] [place] [address] Physician Account Manager Trainee Urology 09/16/23 Aidee Valero PA-C [address] [place] [address] Assigned Musculoskeletal Provider 04/17/24 Tanisha Marlow 4120 [facility] [address] 03/30/24 documented as of this encounter
--- OUTSIDE RECORDS SUMMARY | 2024-06-07 17:50 | XMS_ITS | Encounter Summary ---
Author Organization [place] Address [address] [place] [address]28 Care Team Providers Care Medical Library Assistant Name Role Phone Carlos Joyner MD Unavailable [phone] Jadon Murray MD Unavailable + [phone] Maru Villagomez RN Unavailable Unavailable Ignacia Duran MD Primary Care Provider [phone] Ang Slade MD Unavailable [phone] Carlos Joyner MD Unavailable [phone] Ang Slade MD Unavailable +[phone] Lakshmi Wilhelm-C Unavailable +[phone] Heladio Willoughby MD Primary Care Provider [phone] Heladio Willoughby MD Unavailable Alissa Perez PA-C Unavailable [phone] Lakshmi Wilhelm-C Unavailable +[phone] Aidee Valero PA-C Unavailable +[phone] Encounter Details Date Type Department Care Team (Late st Contact Info) Description 12/30/2022 [facility] Clinic [address] [place] [address] Analisa Palacio, OTILIO Social History [...] st Contact Info) Description 06/15/2024 9:30 AM FINANCIAL MARKET DEALER Office Visit [facility] [address] [place] [phone] uX Prince MD [address] [place] [address] [phone] 06/15/2024 2:30 PM FINANCIAL MARKET DEALER Office Visit [facility] [address] [place] [address] Andreea Cruz PA-C [address] [place] [address] 07/21/2024 4:00 PM FINANCIAL MARKET DEALER Office Visit [facility] [address] [place] [address] [place] [address] [place] [address] documented as of this encounter Visit Diagnoses Not on filedocumented in this encounter Additional Health Concerns Infection Onset Date Last Indicated Resolved Time MRSA Comment:Added from external infection. Pt has had Staph infections but never MRSA from Care everywhere chart review. Removing MRSA 02.06.23 06/17/2019 02/06/2023 9:41 AM C DT documented as of this encounter Care Teams Medical Library Assistant Relationship Specialty Start Date End Date Ignacia Duran MD PCP - General Pediatrics 01/20/20 03/04/23 [place] [address] [place] [address] PCP - General 03/05/23 Carlos Joyner MD [address] [place] [address] 18457 Urology 12/09/19 Jadon Murray MD [facility] [address] [address] Referring Physician Pediatric Surgery 12/09/19 Maru Villagomez, OTILIO Registered Nurse 12/10/19 Ang Slade MD [address] [place] [address] 7[address]10 Urology 04/24/20 Carlos Joyner MD [address] [place] [address] 16064 Assigned Surgical Provider 12/24/20 Ang Slade MD [address] [place] [address] 10814 Urology 12/18/22 Lakshmi Wilhelm PA-C [address] [place] [address] 85686 Physician Filament Cutter Urology 02/03/23 [place] [address] [place] [address] Assigned PCP 02/06/23 Alissa Perez PA-C [address] [place] [address] 407095 Physician Filament Cutter Surgery 09/04/23 Lakshmi Wilhelm PA-C [address] [place] [address] [phone] Physician Filament Cutter Urology 09/16/23 Aidee Valero PA-C [address] [place] [address] [phone] Assigned Musculoskeletal Provider 04/17/24 Tanisha Marlow 4120 [facility] [address] 03/30/24 documented as of this encounter
--- OUTSIDE RECORDS SUMMARY | 2024-06-07 17:50 | XMS_ITS | Encounter Summary ---
Author Organization [place] Address [address] [place] [address] Care Team Providers Care Unix Consultant Name Role Phone Carlos Joyner MD Unavailable [phone] Jadon Murray MD Unavailable [phone] Maru Villagomze RN Unavailable Unavailable Ignacia Duran MD Primary Care Provider Ang Slade MD Unavailable +[phone] Carlos Joyner MD Unavailable +[phone] Annalise Orta PA-C Unavailable +[phone] Ang Slade MD Unavailable +[phone] Lakshmi Wilhelm PA-C Unavailable +[phone] Heladio Willoughby MD Primary Care Provider [phone] Heladio Willoughby MD Unavailable Alissa Perez PA-C Unavailable [phone] Lakshmi Wilhelm PA-C Unavailable [phone] Aidee Valero PA-C Unavailable +[phone] Encounter Details Date Type Department Care Team (Late st Contact Info) Description 07/31/[address] [facility] Preoperative Assessment Center [address] 5th [place] [address] Makenzie Drummond, RN Social History [...] st Contact Info) Description 06/15/2024 9:30 AM FILE KEEPER Office Visit [facility] [address] [place] [place] [phone] Xu Prince MD [address] [place] [address] [phone] 06/15/2024 2:30 PM FILE KEEPER [facility] [address] [place] [address] Andreea Cruz, PA-C [address] [place], [place] [id number] 07/21/2024 4:00 PM FILE KEEPER [facility] [address] [place] [address] [place] [address] [place] [address] documented as of this encounter Visit Diagnoses Not on filedocumented in this encounter Additional Health Concerns Infection Onset Date Last Indicated Resolved Time MRSA Comment:Added from external infection. Pt has had Staph infections but never MRSA from Care everywhere chart review. Removing MRSA 02.06.23 06/17/2019 02/06/2023 9:41 AM C DT documented as of this encounter Care Teams Unix Consultant Relationship Specialty Start Date End Date Ignacia Duran MD PCP - General Pediatrics 01/20/20 03/04/23 [place] [address] [place] [address] PCP - General 03/05/23 Carlos Joyner MD [address] [place] [address]177 Urology 12/09/19 Jadon Murray MD [facility] [address] [address] Referring Physician Pediatric Surgery 12/09/19 Maru Villagomez, RN Registered Nurse 12/10/19 Ang Slade MD [address] [place] [address] 182315 Urology 04/24/20 Carlos Joyner MD [address] [place] [address] 628415 Assigned Surgical Provider 12/24/20 Annalise Orta PA-C 5200 [place] [address] Assigned Cancer Care Provider 05/13/21 11/01/22 Ang Slade MD [address] 513095 Urology 12/18/22 Lakshmi Wilhelm PA-C [address] [place] [address] 164695 Physician Seasonal Retail Merchandiser Urology 02/03/23 [place] [address] [address] [place] [address] Assigned PCP 02/06/23 Alissa Perez PA-C [address] [place] [address]40 Physician Seasonal Retail Merchandiser Surgery 09/04/23 Lakshmi Wilhelm PA-C [address] [place] [address] 492165 Physician Seasonal Retail Merchandiser Urology 09/16/23 Aidee Valero PA-C [address] [place] [address] [id number] Assigned Musculoskeletal Provider 04/17/24 Tanisha Marlow 4120 [facility] [address] 03/30/24 documented as of this encounter
--- OUTSIDE RECORDS SUMMARY | 2024-06-07 17:50 | XMS_ITS | Encounter Summary ---
Author Organization [place] Address [address] [place] [address] Care Team Providers Care Flat Knitter Name Role Phone Carlos Joyner MD Unavailable [phone] Jadon Murray MD Unavailable [phone] Maru Villagomez RN Unavailable Unavailable Ignacia Duran MD Primary Care Provider Ang Slade MD Unavailable [phone] Carlos Joyner MD Unavailable [phone] Annalise Orta-C Unavailable Ang Slade MD Unavailable Lakshmi Wilhelm-C Unavailable [phone] Heladio Willoughby MD Primary Care Provider [phone] Heladio Willoughby MD Unavailable Alissa Perez PA-C Unavailable [phone] Lakshmi Wilhelm-C Unavailable Aidee Valero PA-C Unavailable Encounter Details Date Type Department Care Team (Late st Contact Info) Description 10/12/2021 [facility] Preoperative Assessment Center [address] 5th [place] [address] Tanisha Coe PA-C [address] [place] [address] Social History Tobacco Use Types Packs/Day [...] st Contact Info) Description 06/15/2024 9:30 AM CROWN AND BRIDGE DENTAL LAB TECHNICIAN Office Visit [facility] [address] [place] [phone] Xu Prince MD [address] [place] [address] [id number] 06/15/2024 2:30 PM CROWN AND BRIDGE DENTAL LAB TECHNICIAN Office Visit [facility] [address] [place] [address] Andreea Cruz PA-C [address] [place] [address] 07/21/2024 4:00 PM CROWN AND BRIDGE DENTAL LAB TECHNICIAN Office Visit [facility] [address] [place] [address] [place] [address] [place] [address] documented as of this encounter Visit Diagnoses Not on filedocumented in this encounter Additional Health Concerns Infection Onset Date Last Indicated Resolved Time MRSA Comment:Added from external infection. Pt has had Staph infections but never MRSA from Care everywhere chart review. Removing MRSA 02.06.23 06/17/2019 02/06/2023 9:41 AM C DT documented as of this encounter Care Teams Flat Knitter Relationship Specialty Start Date End Date Ignacia Duran MD PCP - General Pediatrics 01/20/20 03/04/23 [place] [address] [facility] [place] [address] PCP - General 03/05/23 Carlos Joyner MD [address] [place] [address] Urology 12/09/19 Jadon Murray MD [facility] [address] [address] Referring Physician Pediatric Surgery 12/09/19 Maru Villagomez, OTILIO Registered Nurse 12/10/19 Ang Slade MD [address] [place] [address] 29352 Urology 04/24/20 Carlos Joyner MD [address] [place] [address] 024325 Assigned Surgical Provider 12/24/20 Annalise Orta PA-C 5200 [place] [address] Assigned Cancer Care Provider 05/13/21 11/01/22 Ang Slade MD [address] [place] [address] 69104 Urology 12/18/22 Lakshmi Wilhelm PA-C [address] [place] [address] 344955 Physician Pit Crane Operator Urology 02/03/23 [place] [address] [place] [address] Assigned PCP 02/06/23 Alissa Perez PA-C [address] [place] [address] 190015 Physician Pit Crane Operator Surgery 09/04/23 Lakshmi Wilhelm PA-C [address] [place] [address] 758225 Physician Pit Crane Operator Urology 09/16/23 Aidee Valero PA-C [address] [place] [address] 069815 Assigned Musculoskeletal Provider 04/17/24 Tanisha Marlow 4120 [facility] [address] 03/30/24 documented as of this encounter
--- OUTSIDE RECORDS SUMMARY | 2024-06-07 17:50 | XMS_ITS | Encounter Summary ---
Author Organization [place] Address [address] [place] [address] Care Team Providers Care Investment Counselor Name Role Phone Carlos Joyner MD Unavailable [phone] Jadon Murray MD Unavailable [phone] Maru Villagomez RN Unavailable Unavailable Ignacia Duran MD Primary Care Provider [phone] Ang Slade MD Unavailable [phone] Carlos Joyner MD Unavailable +[phone] Annalise Orta PA-C Unavailable [phone] Ang Slade MD Unavailable +[phone] Lakshmi Wilhelm-C Unavailable [phone] Heladio Willoughby MD Primary Care Provider [phone] Heladio Willoughby MD Unavailable Alissa Perez PA-C Unavailable [phone] Lakshmi Wilhelm PA-C Unavailable [phone] Aidee Valero PA-C Unavailable [phone] Encounter Details Date Type Department Care Team (Late st Contact Info) Description 11/14/2021 [facility] Urology Clinic [address] [place] [address] Analisa Palacio, RN Social History [...] st Contact Info) Description 06/15/2024 9:30 AM INTEL RECRUITER Office Visit [facility] [address] [place] [address] [phone] Xu Prince MD [address] [place] [address] [phone] 06/15/2024 2:30 PM INTEL RECRUITER Office Visit [facility] [address] [place] [address] Andreea Cruz PA-C [address] [place] [address] 07/21/2024 4:00 PM INTEL RECRUITER Office [facility] [address] [place] [address] [place] [address] [place], [place] [phone] documented as of this encounter Visit Diagnoses Not on filedocumented in this encounter Additional Health Concerns Infection Onset Date Last Indicated Resolved Time MRSA Comment:Added from external infection. Pt has had Staph infections but never MRSA from Care everywhere chart review. Removing MRSA 9.14.23 06/17/2019 02/06/2023 9:41 AM C DT documented as of this encounter Care Teams Investment Counselor Relationship Specialty Start Date End Date Ignacia Duran MD PCP - General Pediatrics 01/20/20 03/04/23 [place] [address] [facility] [place] [address] PCP - General 03/05/23 Carlos Joyner MD [address] [place] [address] Urology 12/09/19 Jadon Murray MD [facility] [address] [address] Referring Physician Pediatric Surgery 12/09/19 Maru Villagomez, RN Registered Nurse 12/10/19 Ang Slade MD [address] [place] [address] Urology 04/24/20 Carlos Joyner MD [address] [place] [address] 85069 Assigned Surgical Provider 12/24/20 Annalise Orta PA-C 5200 [place] [address] Assigned Cancer Care Provider 05/13/21 11/01/22 Ang Slade MD [address] [address] Urology 12/18/22 Lakshmi Wilhelm PA-C [address] [place] [address] Physician Jewel Stripper Urology 02/03/23 [place] [address] [place] [address] Assigned PCP 02/06/23 Alissa Perez PA-C [address] [place] [address]43 Physician Jewel Stripper Surgery 09/04/23 Lakshmi Wilhelm PA-C [address] [place] [address] 23896 Physician Jewel Stripper Urology 09/16/23 Aidee Valero PA-C [address] [place] [address] Assigned Musculoskeletal Provider 04/17/24 Tanisha Marlow 4120 [facility] [address] 03/30/24 documented as of this encounter
--- OUTSIDE RECORDS SUMMARY | 2024-06-07 17:50 | XMS_ITS | Encounter Summary ---
Author Organization [place] Address [address] [place] [address]58 Care Team Providers Care Rack Loader Name Role Phone Carlos Joyner MD Unavailable +[phone] Jadon Murray MD Unavailable [phone] Maru Villagomez RN Unavailable Unavailable Ignacia Duran MD Primary Care Provider Ang Slade MD Unavailable +[phone] Carlos Joyner MD Unavailable +[phone] Annalise Orta PA-C Unavailable +[phone] Ang Slade MD Unavailable +[phone] Lakshmi Wilhelm-C Unavailable [phone] Heladio Willoughby MD Primary Care Provider [phone] Heladio Willoughby MD Unavailable Alissa Perez PA-C Unavailable [phone] Lakshmi Wilhelm PA-C Unavailable [phone] Aidee Valero PA-C Unavailable +[phone] Encounter Details Date Type Department Care Team (Late st Contact Info) Description 12/05/2021 [facility] Urology Clinic [address] [address] [facility] Social History Tobacco Use Types Packs/Day Years [...] st Contact Info) Description 06/15/2024 9:30 AM ACCOUNT CLASSIFICATION CLERK Office Visit [facility] [address] [place] [address] Xu Prince MD [address] [place] [address] [id number] 06/15/2024 2:30 PM ACCOUNT CLASSIFICATION CLERK Office Visit [facility] [address] [place] [address] Andreea Cruz PA-C [address] [place] [address] 07/21/2024 4:00 PM ACCOUNT CLASSIFICATION CLERK Office Visit [facility] [address] [place] [address] [place] [address] [place], [place] [phone] documented as of this encounter Visit Diagnoses Not on filedocumented in this encounter Additional Health Concerns Infection Onset Date Last Indicated Resolved Time MRSA Comment:Added from external infection. Pt has had Staph infections but never MRSA from Care everywhere chart review. Removing MRSA 9.14.23 06/17/2019 02/06/2023 9:41 AM C DT documented as of this encounter Care Teams Rack Loader Relationship Specialty Start Date End Date Ignacia Duran MD PCP - General Pediatrics 01/20/20 03/04/23 [place] [address] [facility] [place] [address] PCP - General 03/05/23 Carlos Joyner MD 9 [place] [address] Urology 12/09/19 Jadon Murray MD [facility] [address] [address] Referring Physician Pediatric Surgery 12/09/19 Maru Villagomez, RN Registered Nurse 12/10/19 Ang Slade MD [address] [address] Urology 04/24/20 Carlos Joyner MD [address] [place] [address] Assigned Surgical Provider 12/24/20 Annalise Orta PA-C 5200 [place] [address] Assigned Cancer Care Provider 05/13/21 11/01/22 Ang Slade MD [address] [address] Urology 12/18/22 Lakshmi Wilhelm PA-C [address] [place] [address] 7[address]28 Physician Service Station Console Operator Urology 02/03/23 [place] [address] [place] [address] Assigned PCP 02/06/23 Alissa Perez PA-C [address] [place] [address]168 Physician Service Station Console Operator Surgery 09/04/23 Lakshmi Wilhelm PA-C [address] [place] [address] Physician Service Station Console Operator Urology 09/16/23 Aidee Valero PA-C [address] [place] [address] Assigned Musculoskeletal Provider 04/17/24 Tanisha Marlow 4120 [facility] [address] 03/30/24 documented as of this encounter
--- OUTSIDE RECORDS SUMMARY | 2024-06-07 17:50 | XMS_ITS | Encounter Summary ---
Author Organization [place] Address [address] [place] [address] Care Team Providers Care Licensed Practical Nurse Clinic Nurse Name Role Phone Carlos Joyner MD Unavailable +[phone] Jadon Murray MD Unavailable +[phone] Maru Villagomez RN Unavailable Unavailable Ignacia Duran MD Primary Care Provider [phone] Ang Slade MD Unavailable [phone] Carlos Joyner MD Unavailable +[phone] Annalise Orta PA-C Unavailable +[phone] Ang Slade MD Unavailable [phone] Lakshmi Wilhelm-C Unavailable [phone] Heladio Willoughby MD Primary Care Provider [phone] Heladio Willoughby MD Unavailable Alissa Perez PA-C Unavailable [phone] Lakshmi Wilhelm PA-C Unavailable [phone] Aidee Valero PA-C Unavailable +[phone] Encounter Details Date Type Department Care Team (Late st Contact Info) Description 10/02/2021 [facility] U[facility] Clinic [address] [place] [address] Analisa Palacio, RN Social History [...] st Contact Info) Description 06/15/2024 9:30 AM WARD SECRETARY Office Visit [address] [phone] Xu Prince MD [address] [place] [address] [phone] 06/15/2024 2:30 PM WARD SECRETARY Office Visit [facility] [address] [place] [address] Andreea Cruz PA-C [address] [place], [place] [phone] 07/21/2024 4:00 PM WARD SECRETARY Office Visit [facility] [address] [place] [address] [place] [address] [place] [address] documented as of this encounter Visit Diagnoses Not on filedocumented in this encounter Additional Health Concerns Infection Onset Date Last Indicated Resolved Time MRSA Comment:Added from external infection. Pt has had Staph infections but never MRSA from Care everywhere chart review. Removing MRSA 9.14.23 06/17/2019 02/06/2023 9:41 AM C DT documented as of this encounter Care Teams Licensed Practical Nurse Clinic Nurse Relationship Specialty Start Date End Date Ignacia Duran MD PCP - General Pediatrics 01/20/20 03/04/23 [place] [address] [place] [address] PCP - General 03/05/23 Carlos Joyner MD [address] [place] [address] Urology 12/09/19 Jadon Murray MD [facility] [address] [address] Referring Physician Pediatric Surgery 12/09/19 Maru Villagomez, RN Registered Nurse 12/10/19 Ang Slade MD [address] [place] [address] 462955 Urology 04/24/20 Carlos Joyner MD [address] [place] [address] 559135 Assigned Surgical Provider 12/24/20 Annalise Orta PA-C 5200 [place] [address] Assigned Cancer Care Provider 05/13/21 11/01/22 Ang Slade MD [address] [address] Urology 12/18/22 Lakshmi Wilhelm PA-C [address] [place] [address] 268435 Physician Call Or Contact Centre Manager Urology 02/03/23 [place] [address] [place] [address] Assigned PCP 02/06/23 Alissa Perez PA-C [address] [place] [address] 069225 Physician Call Or Contact Centre Manager Surgery 09/04/23 Lakshmi Wilhelm PA-C [address] [place] [address] Physician Call Or Contact Centre Manager Urology 09/16/23 Aidee Valero PA-C [address] [place] [address] 779495 Assigned Musculoskeletal Provider 04/17/24 Tanisha Marlow 4120 [facility] [address] 03/30/24 documented as of this encounter
--- OUTSIDE RECORDS SUMMARY | 2024-06-07 17:50 | XMS_ITS | Encounter Summary ---
Author Organization [facility] Address [address] [place] [address] Care Team Providers Care Mail Service Coordinator Name Role Phone Carlos Joyner MD Unavailable [phone] Jadon Murray MD Unavailable +[phone] Maru Villagomez RN Unavailable Unavailable Ignacia Duran MD Primary Care Provider Ang Slade MD Unavailable [phone] Carlos Joyner MD Unavailable +[phone] Annalise Orta PA-C Unavailable +[phone] Ang Slade MD Unavailable +[phone] Lakshmi Wilhelm PA-C Unavailable [phone] Heladio Willoughby MD Primary Care Provider [phone] Heladio Willoughby MD Unavailable Alissa Perez PA-C Unavailable [phone] Lakshmi Wilhelm PA-C Unavailable [phone] Aidee Valero PA-C Unavailable +[phone] Encounter Details Date Type Department Care Team (Late st Contact Info) Description 07/19/2021 [facility] [place] [id number] [facility] 4th [place] [address] Shyann Rehman Social History Tobacco [...] COVID-19? No / Unsure 06/19/2021 11:16 AM TELEVISION MECHANIC documented as of this encounter Plan of Treatment Upcoming Encounters Date Type Department Care Team (Late st Contact Info) Description 06/15/2024 9:30 AM TELEVISION MECHANIC Office Visit [facility] [address] [facility] [place] [address] Xu Prince MD [address] [place] [address] 820674 06/15/2024 2:30 PM TELEVISION MECHANIC [facility] [address] [place] [address] Andreea Cruz PA-C [address] [place] [address] 07/21/2024 4:00 PM TELEVISION MECHANIC [facility] [address] [place] [address] [place] [address] [place] [address] documented as of this encounter Visit Diagnoses Not on filedocumented in this encounter Additional Health Concerns Infection Onset Date Last Indicated Resolved Time MRSA Comment:Added from external infection. Pt has had Staph infections but never MRSA from Care everywhere chart review. Removing MRSA 9.14.23 06/17/2019 02/06/2023 9:41 AM C DT documented as of this encounter Care Teams Mail Service Coordinator Relationship Specialty Start Date End Date Ignacia Duran MD PCP - General Pediatrics 01/20/20 03/04/23 [place] [address] [facility] [place] [place] [address] PCP - General 03/05/23 Carlos Joyner MD [address] [place] [address]51 Urology 12/09/19 Jadon Murray MD [facility] [address] [address] Referring Physician Pediatric Surgery 12/09/19 Maru Villagomez, OTILIO Registered Nurse 12/10/19 Ang Slade MD [address] [place] [address] 99758 Urology 04/24/20 Carlos Joyner MD [address] [place] [address] 65447 Assigned Surgical Provider 12/24/20 Annalise Orta PA-C 5200 [place] [address] Assigned Cancer Care Provider 05/13/21 11/01/22 Ang Slade MD [address] [place] [address] 142985 Urology 12/18/22 Lakshmi Wilhelm PA-C [address] [place] [address] 665375 Physician Service Department Manager Urology 02/03/23 [place] [address] [place] [address] Assigned PCP 02/06/23 Alissa Perez PA-C [address] [place] [address] 876385 Physician Service Department Manager Surgery 09/04/23 Lakshmi Wilhelm PA-C [address] [place] [address] 756645 Physician Service Department Manager Urology 09/16/23 Aidee Valero PA-C 909 [place], [place] 263235 Assigned Musculoskeletal Provider 04/17/24 Tanisha Marlow 4120 [facility] [address] 03/30/24 documented as of this encounter
--- OUTSIDE RECORDS SUMMARY | 2024-06-07 17:50 | XMS_ITS | Encounter Summary ---
Author Organization [facility] Address [address] [place] [address] Care Team Providers Care Absorption And Adsorption Engineer Name Role Phone Carlos Joyner MD Unavailable [phone] Jadon Murray MD Unavailable [phone] Maru Villagomez RN Unavailable Unavailable Ignacia Duran MD Primary Care Provider Ang Slade MD Unavailable +[phone] Carlos Joyner MD Unavailable +[phone] Annalise Orta PA-C Unavailable +[phone] Ang Slade MD Unavailable Lakshmi Wilhelm-C Unavailable [phone] Heladio Willoughby MD Primary Care Provider Heladio Willoughby MD Unavailable Alissa Perez PA-C Unavailable [phone] Lakshmi Wilhelm PA-C Unavailable [phone] Aidee Valero PA-C Unavailable Encounter Details Date Type Department Care Team (Late st Contact Info) Description 12/18/2021 [facility] [address] [place] [address] Carlos Joyner MD [address] [place] [address] Social History Tobacco Use Types Packs/Day [...] st Contact Info) Description 06/15/2024 9:30 AM SECURITY RISK ANALYST Office Visit [facility] [address] [place] [address] Xu Prince MD [address] [place] [address] [phone] 06/15/2024 2:30 PM SECURITY RISK ANALYST Office Visit [facility] [address] [place] [address] Andreea Cruz PA-C [address] [place] [address] 07/21/2024 4:00 PM SECURITY RISK ANALYST Office Visit [facility] [address] [place] [address] [place] [address] [place] [address] documented as of this encounter Visit Diagnoses Not on filedocumented in this encounter Additional Health Concerns Infection Onset Date Last Indicated Resolved Time MRSA Comment:Added from external infection. Pt has had Staph infections but never MRSA from Care everywhere chart review. Removing MRSA 02.06.23 06/17/2019 02/06/2023 9:41 AM C DT documented as of this encounter Care Teams Absorption And Adsorption Engineer Relationship Specialty Start Date End Date Ignacia Duran MD PCP - General Pediatrics 01/20/20 03/04/23 [place] [address] [place] [address] PCP - General 03/05/23 Carlos Joyner MD [address] [place] [address] 480225 Urology 12/09/19 Jadon Murray MD [facility] [address] [address] Referring Physician Pediatric Surgery 12/09/19 Maru Villagomez, OTILIO Registered Nurse 12/10/19 Ang Slade MD [address] [place] [address] 87897 Urology 04/24/20 Carlos Joyner MD [address] [place] [address] 26549 Assigned Surgical Provider 12/24/20 Annalise Orta PA-C 5200 [place] [address] Assigned Cancer Care Provider 05/13/21 11/01/22 Ang Slade MD [address] 487275 Urology 12/18/22 Lakshmi Wilhelm PA-C [address] [place] [address] 471135 Physician Quality Control Associate Urology 02/03/23 [place] [address] [place] [address] Assigned PCP 02/06/23 Alissa Perez PA-C [address] [place] [address] 267455 Physician Quality Control Associate Surgery 09/04/23 Lakshmi Wilhelm PA-C [address] [place] [address] 690275 Physician Quality Control Associate Urology 09/16/23 Aidee Valero PA-C [address] [place] [address] 862415 Assigned Musculoskeletal Provider 04/17/24 Tanisha Marlow 4120 [facility] [address] 03/30/24 documented as of this encounter
--- OUTSIDE RECORDS SUMMARY | 2024-06-07 17:50 | XMS_ITS | Encounter Summary ---
Author Organization [facility] Address [address] [place] [address] Care Team Providers Care Enterprise Account Executive Name Role Phone Carlos Joyner MD Unavailable [phone] Jadon Murray MD Unavailable [phone] Maru Villagomez RN Unavailable Unavailable Ignacia Duran MD Primary Care Provider Ang Slade MD Unavailable [phone] Carlos Joyner MD Unavailable +[phone] Annalise Orta PA-C Unavailable [phone] Ang Slade MD Unavailable [phone] Lakshmi Wilhelm-C Unavailable [phone] Heladio Willoughby MD Primary Care Provider [phone] Heladio Willoughby MD Unavailable Alissa Perez PA-C Unavailable [phone] Lakshmi Wilhelm PA-C Unavailable [phone] Aidee Valero PA-C Unavailable +[phone] Reason for Visit * Reason Onset Date Comments Patient/info Update 02/26/2021 pt currently intubated, will nto be able to have uro surgery Encounter Details Date Type Department Care Team ([facility] Contact Info) Description 02/26/2021 [facility] [address] [place] [address] Carlos Joyner MD 909 [place], [place] 920755 Patient/info Update (pt currently intubated, will nto [...] Lakshmi Chowdhury - 02/26/2021 2:07 PM CDT [facility] Phone Message May a detailed message be left on voicemail: yes Reason for Call: Other: Edith called in wanting to let Dr. Joyner and his team know that [facility] date [facility]09[facility]21. Please call back if thereare any questions at [phone] Action Taken: Message routed to: [facility] uro Travel Screening: Not Applicable documented in this encounter Plan of Treatment Upcoming Encounters Date Type Department Care Team (Late st Contact Info) Description 06/15/2024 9:30 AM SQUILGEER Office Visit [address] [address] Xu Prince MD [address] [place] [address] 307264 06/15/2024 2:30 PM SQUILGEER [facility] [address] [place] [address] Andreea Cruz PA-C [address] [place], [place] 7842568 07/21/2024 4:00 PM SQUILGEER [facility] [address] [place] [address] [place] [address] [place], [place] 6319568 documented as of this encounter Visit Diagnoses Not on filedocumented in this encounter Additional Health Concerns Infection Onset Date Last Indicated Resolved Time MRSA Comment:Added from external infection. Pt has had Staph infections but never MRSA from Care everywhere chart review. Removing MRSA .1406/17/2019 02/06/2023 9:41 AM C DT documented as of this encounter Care Teams Enterprise Account Executive Relationship Specialty Start Date End Date Ignacia Duran MD PCP - General Pediatrics 01/20/20 03/04/23 [place] [address] [place], [place] 6723168 PCP - General 03/05/23 Carlos Joyner MD 9 [place] [address] Urology 12/09/19 Jadon Murray MD [facility] [address] [address] Referring Physician Pediatric Surgery 12/09/19 Maru Villagomez, OTILIO Registered Nurse 12/10/19 Ang Slade MD [address] [place] [address] Urology 04/24/20 Carlos Joyner MD [address] [place] [address] 23446 Assigned Surgical Provider 12/24/20 Annalise Orta PA-C 5200 [place] [address] Assigned Cancer Care Provider 05/13/21 11/01/22 Ang Slade MD [address] [place] [address]239 Urology 12/18/22 Lakshmi Wilhelm PA-C [address] [place] [address] 46761 Physician Kettle Girl Urology 02/03/23 [place] [address] [place] [address] Assigned PCP 02/06/23 Alissa Perez PA-C [address] [place] [address]34 Physician Kettle Girl Surgery 09/04/23 Lakshmi Wilhelm PA-C [address] [place] [address]79 Physician Kettle Girl Urology 09/16/23 Aidee Valero PA-C [address] [place] [address] Assigned Musculoskeletal Provider 04/17/24 Tanisha Marlow 4120 [facility] [address] 03/30/24 documented as of this encounter
--- OUTSIDE RECORDS SUMMARY | 2024-06-07 17:50 | XMS_ITS | Encounter Summary ---
Author Organization [facility] Address 24[address] [facility] [place] [address] Care Team Providers Care Managed Services Consultant Name Role Phone Carlos Joyner MD Unavailable [phone] Jadon Murray MD Unavailable [phone] Maru Villagomez RN Unavailable Unavailable Ang Slade MD Unavailable [phone] Carlos Joyner MD Unavailable [phone] Ang Slade MD Unavailable [phone] Lakshmi Wilhelm PA-C Unavailable [phone] Heladio Willoughby MD Primary Care Provider [phone] Heladio Willoughby MD Unavailable Alissa Perez PA-C Unavailable [phone] Lakshmi Wilhelm PA-C Unavailable [phone] Aidee Valero PA-C Unavailable [phone] Encounter Details Date Type Department Care Team (Late st Contact Info) Description 03/27/2023 MyC Medical Advice UR PREOP/PHASE II 2450 [place] [address] Lisette Salinas RN Social History Tobacco Use [...] in an overnight half-way, or couch-surfing.) Yes 02/26/2023 Are you worried [...] st Contact Info) Description 06/15/2024 9:30 AM BRICK KILN BURNER Office Visit [address] [address] Xu Prince MD [address] [place] [address] 670804 06/15/2024 2:30 PM BRICK KILN BURNER Office Visit [address] [address] Andreea Cruz PA-C [address] [place] [address] 07/21/2024 4:00 PM BRICK KILN BURNER Office Visit [facility] [place] [address] [place] [phone] [place] [address] [facility] [place], [place] 0594268 documented as of this encounter Visit Diagnoses Not on filedocumented in this encounter Care Teams Managed Services Consultant Relationship Specialty [place] [address] [facility] [place], [place] 6852068 PCP - General 03/05/23 Carlos Joyner MD [address] [place] [address] Urology 12/09/19 Jadon Murray MD [facility] 2530 [facility] [address] [place] [address] Referring Physician Pediatric Surgery 12/09/19 Maru Villagomez, OTILIO Registered Nurse 12/10/19 Ang Slade MD [address] [place] [address] 931305 Urology 04/24/20 Carlos Joyner MD [address] [place] [address] Assigned Surgical Provider 12/24/20 Ang Slade MD [address] [place] [address] Urology 12/18/22 Lakshmi Wilhelm PA-C [address] [place] [address] 22899 Physician Sports Marketer Urology 02/03/23 [place] [address] [place] [address] Assigned PCP 02/06/23 Alissa Perez PA-C [address] [place] [address] Physician Sports Marketer Surgery 09/04/23 Lakshmi Wilhelm PA-C [address] [place] [address] 04482 Physician Sports Marketer Urology 09/16/23 Aidee Valero PA-C [address] [place] [address] 379635 Assigned Musculoskeletal Provider 04/17/24 Tanisha Marlow 4120 [facility] [address] 03/30/24 documented as of this encounter
--- OUTSIDE RECORDS SUMMARY | 2024-06-07 17:50 | XMS_ITS | Encounter Summary ---
Author Organization [facility] Address [address] [place] [address] Care Team Providers Care Secondary School Registrar Name Role Phone Carlos Joyner MD Unavailable [phone] Jadon Murray MD Unavailable [phone] Maru Villagomez RN Unavailable Unavailable Ignacia Duran MD Primary Care Provider [phone] Ang Slade MD Unavailable Carlos Joyner MD Unavailable +[phone] Annalise Orta PA-C Unavailable +[phone] Ang Slade MD Unavailable [phone] Lakshmi Wilhelm-C Unavailable [phone] Heladio Willoughby MD Primary Care Provider Heladio Willoughby MD Unavailable Alissa Perez PA-C Unavailable [phone] Lakshmi Wilhelm-C Unavailable [phone] Aidee Valero PA-C Unavailable [phone] Reason for Visit * Reason Onset Date Comments Call Back 06/27/2021 Bladder infectio n Encounter Details Date Type Department Care Team (Late st Contact Info) Description 06/27/2021 Telephone [facility] Clinic [address] 4th [place] [address] Carlos Joyner MD [address] [place] [address] Call Back (Bladder infection) Social History [...] COVID-19? No / Unsure 06/19/2021 11:16 AM WINDOWS SYSTEMS ARCHITECT documented as of this encounter Miscellaneous Notes * Telephone Encounter - Karen Sheth - 06/27/2021 12:[address] [facility] Phone Message May a detailed [...] Center ([facility]): uro Travel Screening: Not Applicable OWS SYSTEMS ARCHITECT documented in this encounter Plan of Treatment Upcoming Encounters Date Type Department Care Team (Late st Contact Info) Description 06/15/2024 9:30 AM WINDOWS SYSTEMS ARCHITECT Office Visit [address] [address] Xu Prince MD [address] [place] [address] 06/15/2024 2:30 PM WINDOWS SYSTEMS ARCHITECT Office Visit [facility] [address] [place] [address] Andreea Cruz PA-C [address] [place] [address] 07/21/2024 4:00 PM WINDOWS SYSTEMS ARCHITECT Office Visit [facility] [address] [place] [address] [place] [address] [facility] [place], [place] 2697068 documented as of this encounter Visit Diagnoses Not on filedocumented in this encounter Additional Health Concerns Infection Onset Date Last Indicated Resolved Time MRSA Comment:Added from external infection. Pt has had Staph infections but never MRSA from Care everywhere chart review. Removing MRSA 02.06.23 06/17/2019 02/06/2023 9:41 AM C DT documented as of this encounter Care Teams Secondary School Registrar Relationship Specialty Start Date End Date Ignacia Duran MD PCP - General Pediatrics 01/20/20 03/04/23 [place] [address] [address] [place], [place] 4244068 PCP - General 03/05/23 Carlos Joyner MD [address] [place] [address] Urology 12/09/19 Jadon Murray MD [facility] 2530 550 [place] [address] Referring Physician Pediatric Surgery 12/09/19 Maru Villagomez, OTILIO Registered Nurse 12/10/19 Ang Slade MD [address] [place] [address] 394 [place] [address] Urology 04/24/20 Carlos Joyner MD [address] [place] [address] Assigned Surgical Provider 12/24/20 Annalise Orta PA-C 5200 [place] [address] Assigned Cancer Care Provider 05/13/21 11/01/22 Ang Slade MD [address] [place] [address] 401225 Urology 12/18/22 Lakshmi Wilhelm PA-C [address] [place] [address] 474575 Physician Lpn Or Medical Assistant Urology 02/03/23 [place] [address] [place] [address] Assigned PCP 02/06/23 Alissa Perez PA-C [address] [place] [address]239 Physician Lpn Or Medical Assistant Surgery 09/04/23 Lakshmi Wilhelm PA-C [address] [place] [address]65 Physician Lpn Or Medical Assistant Urology 09/16/23 Aidee Valero PA-C [address] [place] [address] Assigned Musculoskeletal Provider 04/17/24 Tanisha Marlow 4120 [facility] [address] 03/30/24 documented as of this encounter
--- OUTSIDE RECORDS SUMMARY | 2024-06-07 17:50 | XMS_ITS | Encounter Summary ---
Author Organization [place] Address [address] [place] [address] Care Team Providers Care Room Service Associate Name Role Phone Carlos Joyner MD Unavailable [phone] Jadon Murray MD Unavailable + [phone] Maru Villagomez RN Unavailable Unavailable Ignacia Duran MD Primary Care Provider [phone] Ang Slade MD Unavailable [phone] Carlos Joyner MD Unavailable [phone] Ang Slade MD Unavailable [phone] Lakshmi Wilhelm-C Unavailable [phone] Heladio Willoughby MD Primary Care Provider [phone] Heladio Willoughby MD Unavailable Alissa Perez PA-C Unavailable [phone] Lakshmi Wilhelm-C Unavailable [phone] Aidee Valero PA-C Unavailable +[phone] Encounter Details Date Type Department Care Team (Late st Contact Info) Description 01/06/2023 [facility] [place] [facility] [address] Lisette Mariee Social History Tobacco [...] st Contact Info) Description 06/15/2024 9:30 AM LABORER CONSTRUCTION OR LEAK GANG Office Visit [facility] [address] [place] [phone] Xu Prince MD [address] [place] [address] 090084 06/15/2024 2:30 PM LABORER CONSTRUCTION OR LEAK GANG Office Visit [facility] [address] [place] [address] Andreea Cruz PA-C [address] [place] [address] 07/21/2024 4:00 PM LABORER CONSTRUCTION OR LEAK GANG Office Visit [facility] [address] [place] [address] [place] [address] [place], [place] 5990568 documented as of this encounter Visit Diagnoses Not on filedocumented in this encounter Additional Health Concerns Infection Onset Date Last Indicated Resolved Time MRSA Comment:Added from external infection. Pt has had Staph infections but never MRSA from Care everywhere chart review. Removing MRSA 02.06.23 06/17/2019 02/06/2023 9:41 AM C DT documented as of this encounter Care Teams Room Service Associate Relationship Specialty Start Date End Date Ignacia Duran MD PCP - General Pediatrics 01/20/20 03/04/23 [place] [address] [place] [address] PCP - General 03/05/23 Carlos Joyner MD [address] [place] [address] Urology 12/09/19 Jadon Murray MD [facility] [address] [address] Referring Physician Pediatric Surgery 12/09/19 Maru Villagomez, OTILIO Registered Nurse 12/10/19 Ang Slade MD [address] [place] [address] Urology 04/24/20 Carlos Joyner MD [address] [place] [address] Assigned Surgical Provider 12/24/20 Ang Slade MD [address] [place] [address] 135[address] Urology 12/18/22 Lakshmi Wilhelm PA-C [address] [place] [address] Physician Admissions Director Urology 02/03/23 [place] [address] [place] [address] Assigned PCP 02/06/23 Alissa Perez PA-C [address] [place] [address] 684245 Physician Admissions Director Surgery 09/04/23 Lakshmi Wihlelm PA-C [address] [place] [address] [phone] Physician Admissions Director Urology 09/16/23 Aidee Valero PA-C [address] [place] [address] 46865455 Assigned Musculoskeletal Provider 04/17/24 Tanisha Marlow 4120 [facility] [address] 03/30/24 documented as of this encounter
--- OUTSIDE RECORDS SUMMARY | 2024-06-07 17:50 | XMS_ITS | Encounter Summary ---
Author Organization [place] Address [address] [place] [address] Care Team Providers Care Cable Strander Name Role Phone Carlos Joyner MD Unavailable [phone] Jadon Murray MD Unavailable [phone] Maru Villagomez RN Unavailable Unavailable Ignacia Duran MD Primary Care Provider Ang Slade MD Unavailable +[phone] Carlos Joyner MD Unavailable +[phone] Annalise Orta PA-C Unavailable +[phone] Ang Slade MD Unavailable Lakshmi Wilhelm-C Unavailable +[phone] Heladio Willoughby MD Primary Care Provider Heladio Willoughby MD Unavailable Alissa Perez PA-C Unavailable [phone] Lakshmi Wilhelm PA-C Unavailable [phone] Aidee Valero PA-C Unavailable +[phone] Reason for Visit * Reason Onset Date Comments Orders 01/01/2022 Syringes - 35 an d 60 ml requested Encounter Details Date Type Department Care Team (Late st Contact Info) Description 01/01/[address] [facility] [address] 4th [place] [address] Carlos Joyner MD [address] [place] [address] 87[address] Orders (Syringes - 35 and 60 ml [...] order to [facility] at [phone]. Thank you. Action Taken: Other: Urology Travel Screening: Not Applicable documented in this encounter Plan of Treatment Upcoming Encounters Date Type Department Care Team (Late st Contact Info) Description 06/15/2024 9:30 AM PRESSURE DISPATCHER Office Visit [facility] [address] [place] [phone] Xu Prince MD [address] [phone] 06/15/2024 2:30 PM PRESSURE DISPATCHER Office Visit [facility] [address] [place] [address] Andreea Cruz PA-C [address] [place] [address] 07/21/2024 4:00 PM PRESSURE DISPATCHER Office Visit [facility] [address] [place] [address] [place] [address] [place] [address] documented as of this encounter Visit Diagnoses Not on filedocumented in this encounter Additional Health Concerns Infection Onset Date Last Indicated Resolved Time MRSA Comment:Added from external infection. Pt has had Staph infections but never MRSA from Care everywhere chart review. Removing MRSA 02.06.23 06/17/2019 02/06/2023 9:41 AM C DT documented as of this encounter Care Teams Cable Strander Relationship Specialty Start Date End Date Ignacia Duran MD PCP - General Pediatrics 01/20/20 03/04/23 [place] [address] [place] [address] PCP - General 03/05/23 Carlos Joynre MD [address] [place] [address] 8[address]17 Urology 12/09/19 Jadon Murray MD [facility] 2530 [facility] [address] [address] Referring Physician Pediatric Surgery 12/09/19 Maru Villagomez, OTILIO Registered Nurse 12/10/19 Ang Slade MD [address] [place] [address] 691765 Urology 04/24/20 Carlos Joyner MD [address] [place] [address] 391325 Assigned Surgical Provider 12/24/20 Annalise Orta PA-C 5200 [place] [address] Assigned Cancer Care Provider 05/13/21 11/01/22 Ang Slade MD [address] [place] [address] 684185 Urology 12/18/22 Lakshmi Wilhelm PA-C [address] [place] [address] 077775 Physician Photocopier Technician Urology 02/03/23 [place] [address] [place] [address] Assigned PCP 02/06/23 Alissa Perez PA-C [address] [place] [address]83 Physician Photocopier Technician Surgery 09/04/23 Lakshmi Wilhelm PA-C [address] [place] [address] 8[address] Physician Photocopier Technician Urology 09/16/23 Aidee Valero PA-C [address] [place] [address] 57961 Assigned Musculoskeletal Provider 04/17/24 Tanisha Marlow [facility] [address] 03/30/24 documented as of this encounter
--- OUTSIDE RECORDS SUMMARY | 2024-06-07 17:50 | XMS_ITS | Encounter Summary ---
Author Organization [place] Address [address] [place] [address] Care Team Providers Care Measurement And Sensing Technician Name Role Phone Carlos Joyner MD Unavailable [phone] Jadon Murray MD Unavailable [phone] Maru Villagomez RN Unavailable Unavailable Ignacia Duran MD Primary Care Provider Ang Slade MD Unavailable Carlos Joyner MD Unavailable [phone] Annalise Orta PA-C Unavailable Ang Slade MD Unavailable Lakshmi Wilhelm-C Unavailable [phone] Heladio Willoughby MD Primary Care Provider Heladio Willoughby MD Unavailable Alissa Perez PA-C Unavailable [phone] Lakshmi Wilhelm PA-C Unavailable Aidee Valero PA-C Unavailable Encounter Details Date Type Department Care Team (Late st Contact Info) Description 09/17/2021 [facility] [address] [place] [address] Carlos Joyner MD [address] [place] [address] Social History Tobacco Use Types Packs/Day [...] st Contact Info) Description 06/15/2024 9:30 AM SEWER BRICKLAYER Office Visit [address] [phone] Xu Prince MD [address] [place] [address] 06/15/2024 2:30 PM SEWER BRICKLAYER Office Visit [facility] [address] [place] [address] Andreea Cruz PAEarlC [address] [place] [address] 07/21/2024 4:00 PM SEWER BRICKLAYER Office Visit [facility] [address] [place] [address] [place] [address] [place] [address] documented as of this encounter Visit Diagnoses Not on filedocumented in this encounter Additional Health Concerns Infection Onset Date Last Indicated Resolved Time MRSA Comment:Added from external infection. Pt has had Staph infections but never MRSA from Care everywhere chart review. Removing MRSA 9.14.23 06/17/2019 02/06/2023 9:41 AM C DT documented as of this encounter Care Teams Measurement And Sensing Technician Relationship Specialty Start Date End Date Ignacia Duran MD PCP - General Pediatrics 01/20/20 03/04/23 [place] [address] [place] [address] PCP - General 03/05/23 Carlos Joyner MD [address] [place] [address] 12873 Urology 12/09/19 Jadon Murray MD [facility] [address] [address] Referring Physician Pediatric Surgery 12/09/19 Maru Villagomez, OTLIIO Registered Nurse 12/10/19 Ang Slade MD 420 [facility] 394 [place] [address] Urology 04/24/20 Carlos Joyner MD [address] [place] [address] 73789 Assigned Surgical Provider 12/24/20 Annalise Orta PA-C 5200 [place] [address] Assigned Cancer Care Provider 05/13/21 11/01/22 Ang Slade MD [address] [place] [address] Urology 12/18/22 Lakshmi Wilhelm PA-C [address] [place] [address] 53730 Physician Long Wall Shear Operator Urology 02/03/23 [place] [address] [place] [address] Assigned PCP 02/06/23 Alissa Perez PA-C [address] [place] [address]53 Physician Long Wall Shear Operator Surgery 09/04/23 Lakshmi Wilhelm PA-C [address] [place] [address] 19949 Physician Long Wall Shear Operator Urology 09/16/23 Aidee Valero PA-C [address] [place] [address] 33025 Assigned Musculoskeletal Provider 04/17/24 Tanisha Marlow [address] [place] [address] 03/30/24 documented as of this encounter
--- OUTSIDE RECORDS SUMMARY | 2024-06-07 17:50 | XMS_ITS | Encounter Summary ---
Author Organization [place] Address [address] [place] [address] Care Team Providers Care Supervisor Knitting Name Role Phone Carlos Joyner MD Unavailable [phone] Jadon Murray MD Unavailable [phone] Maru Villagomez RN Unavailable Unavailable Ignacia Duran MD Primary Care Provider [phone] Ang Slade MD Unavailable [phone] Carlos Joyner MD Unavailable [phone] Annalise Orta PA-C Unavailable [phone] Ang Slade MD Unavailable [phone] Lakshmi Wilhelm-C Unavailable [phone] Heladio Willoughby MD Primary Care Provider [phone] Hleadio Willoughby MD Unavailable Alissa Perez PA-C Unavailable [phone] Lakshmi Wilhelm PA-C Unavailable [phone] Aidee Valero PA-C Unavailable [phone] Encounter Details Date Type Department Care Team (Late st Contact Info) Description 11/07/2021 [facility] [address] [place] [address] Analisa Palacio, RN Social History [...] st Contact Info) Description 06/15/2024 9:30 AM CODING QUALITY ANALYST Office Visit [facility] [address] [place] [phone] Xu Prince MD [address] [place] [address] [phone] 06/15/2024 2:30 PM CODING QUALITY ANALYST Office Visit [facility] [address] [place] [address] Andreea Cruz PA-C [address] [place] [address] 07/21/2024 4:00 PM CODING QUALITY ANALYST Office Visit [facility] [address] [place] [address] [place] [address] [place], [place] 5004968 documented as of this encounter Visit Diagnoses Not on filedocumented in this encounter Additional Health Concerns Infection Onset Date Last Indicated Resolved Time MRSA Comment:Added from external infection. Pt has had Staph infections but never MRSA from Care everywhere chart review. Removing MRSA 9.14.23 06/17/2019 02/06/2023 9:41 AM C DT documented as of this encounter Care Teams Supervisor Knitting Relationship Specialty Start Date End Date Ignacia Duran MD PCP - General Pediatrics 01/20/20 03/04/23 [place] [address] [facility] [place] [address] PCP - General 03/05/23 Carlos Joyner MD [address] [place] [address] Urology 12/09/19 Jadon Murray MD [facility] [address] [address] Referring Physician Pediatric Surgery 12/09/19 Maru Villagomez, RN Registered Nurse 12/10/19 Ang Slade MD [address] [place] [address]270 Urology 04/24/20 Carlos Joyner MD [address] [place] [address] Assigned Surgical Provider 12/24/20 Annalise Orta PA-C 5200 [place] [address] Assigned Cancer Care Provider 05/13/21 11/01/22 Ang Slade MD [address] [address] Urology 12/18/22 Lakshmi Wilhelm PA-C [address] [place] [address] Physician Acoustic Intelligence Specialist Urology 02/03/23 [place] [address] [place] [address] Assigned PCP 02/06/23 Alissa Perez PA-C [address] [place] [address]385 Physician Acoustic Intelligence Specialist Surgery 09/04/23 Lakshmi Wilhelm PA-C [address] [place] [address] Physician Acoustic Intelligence Specialist Urology 09/16/23 Aidee Valero PA-C [address] [place] [address]144 Assigned Musculoskeletal Provider 04/17/24 Tanisha Marlow 4120 [facility] [address] 03/30/24 documented as of this encounter
--- OUTSIDE RECORDS SUMMARY | 2024-06-07 17:51 | XMS_ITS | Encounter Summary ---
Author Organization [place] Address [address] [place] [address]67 Care Team Providers Care Business Director Name Role Phone Carlos Joyner MD Unavailable [phone] Jadon Murray MD Unavailable [phone] Maru Villagomez RN Unavailable Unavailable Ignacia Duran MD Primary Care Provider [phone] Carlos Joyner MD Unavailable +[phone] Ang Slade MD Unavailable [phone] Ang Slade MD Unavailable [phone] Carlos Joyner MD Unavailable +[phone] Annalise Orta PA-C Unavailable [phone] Ang Slade MD Unavailable [phone] Lakshmi Wilhelm-C Unavailable [phone] Heladio Wliloughby MD Primary Care Provider [phone] Heladio Willoughby MD Unavailable Alissa Perez PA-C Unavailable [phone] Lakshmi Wilhelm-C Unavailable [phone] Aidee Valero PA-C Unavailable +[phone] Reason for Visit * Reason Onset Date Comments Call Back 06/07/2020 Stent FYI Encounter Details Date Type Department Care Team (Late st Contact Info) Description 06/07/2020 [facility]rology Clinic [place] [id number] [facility] 4th [place] [phone] Ang Slade MD 420 [facility] 394 [place], [place] 850045 Call Back (Stent FYI) Social History Tobacco [...] them back message sent to [email or web address] NT COORDINATOR * Telephone Encounter - Zo Geiger - 06/07/2020 3:16 PM CST [facility] Phone Message May a detailed message be left on voicemail: yes Reason for Call: Other: Cristine calling to let us know that Laian's stent was put in by a providerat [facility] in the Emergency room on 02/04. Cristine is hoping to get a call back to discuss. Action Taken: Message routed to: [facility] Urology Travel Screening: Not Applicable NT COORDINATOR documented in this encounter Plan of Treatment Upcoming Encounters Date Type Department Care Team (Late st Contact Info) Description 06/15/2024 9:30 AM TENANT COORDINATOR Office Visit [address] [address] Xu Prince MD [address] [place] [address] 863354 06/15/2024 2:30 PM TENANT COORDINATOR Office Visit [facility] [place] [address] [place] [phone] Andreea Cruz PA-C [address] [place], [place] [phone] 07/21/2024 4:00 PM TENANT COORDINATOR [facility] [address] [place] [address] [place] [address] [place], [place] 3040968 documented as of this encounter Visit Diagnoses Not on filedocumented in this encounter Additional Health Concerns Infection Onset Date Last Indicated Resolved Time MRSA Comment:Added from external infection. Pt has had Staph infections but never MRSA from Care everywhere chart review. Removing MRSA 02.06.23 06/17/2019 02/06/2023 9:41 AM C DT documented as of this encounter Care Teams Business Director Relationship Specialty Start Date End Date Ignacia Duran MD PCP - General Pediatrics 01/20/20 03/04/23 [place] [address] [place], [place] [phone] PCP - General 03/05/23 Carlos Joyner MD 9 [place] [address] Urology 12/09/19 Jadon Murray MD [facility] [address] [address] Referring Physician Pediatric Surgery 12/09/19 Maru Villagomez, OTILIO Registered Nurse 12/10/19 Carlos Joyner MD 909 [place], [place] 739315 Assigned Surgical Provider 03/17/20 Ang Slade MD 420 [facility] 394 [place] [address] Urology 04/24/20 Ang Slade MD 420 [facility] 394 [place], [place] 101995 Assigned Surgical Provider 08/13/20 Carlos Joyner MD [address] [place] [address] 320935 Assigned Surgical Provider 12/24/20 Annalise Orta PA-C 5200 [place] [address] Assigned Cancer Care Provider 05/13/21 11/01/22 Ang Slade MD [address] 809975 Urology 12/18/22 Lakshmi Wilhelm PA-C [address] [place] [address] 303345 Physician Facility Security Officer Urology 02/03/23 [place] [address] [place] [address] Assigned PCP 02/06/23 Alissa Perez PA-C 500 [place] [address] Physician Facility Security Officer Surgery 09/04/23 Lakshmi Wilhelm PA-C [address] [place] [address] Physician Facility Security Officer Urology 09/16/23 Aidee Valero PA-C [address] [place] [address] Assigned Musculoskeletal Provider 04/17/24 Tanisha Marlow 4120 [facility] [address] 03/30/24 documented as of this encounter
--- OUTSIDE RECORDS SUMMARY | 2024-06-07 17:51 | XMS_ITS | Encounter Summary ---
Author Organization [place] Address [address] [place] [address] Care Team Providers Care Boom Crane Operator Name Role Phone Carlos Joyner MD Unavailable +[phone] Jadon Murray MD Unavailable +[phone] Maru Villagomez RN Unavailable Unavailable Ignacia Duran MD Primary Care Provider [phone] Carlos Joyner MD Unavailable +[phone] Ang Slade MD Unavailable [phone] Ang Slade MD Unavailable [phone] Carlos Joyner MD Unavailable +[phone] Annalise Orta-C Unavailable [phone] Ang Slade MD Unavailable [phone] Lakshmi Wilhelm-C Unavailable [phone] Heladio Willoughby MD Primary Care Provider [phone] Heladio Willoughby MD Unavailable Alissa Perez PA-C Unavailable [phone] Lakshmi Wilhelm-C Unavailable [phone] Aidee Valero PA-C Unavailable +[phone] Reason for Visit * Reason Comments Orders Encounter Details Date Type Department Care Team (Late st Contact Info) Description 02/02/2020 Orders Only [facility] [address] [phone] Maru Villagomez, RN Social History Tobacco Use [...] st Contact Info) Description 06/15/2024 9:30 AM REGULATORY COMPLIANCE SPECIALIST Office [facility] [address] [place] [phone] Xu Prince MD [address] [place] [address] 130564 06/15/2024 2:30 PM REGULATORY COMPLIANCE SPECIALIST Office Visit [facility] [address] [place] [address] Andreea Cruz PA-C [address] [place] [address] 07/21/2024 4:00 PM REGULATORY COMPLIANCE SPECIALIST Office Visit [facility] [address] [place] [address] [place] [address] [place] [address] documented as of this encounter Visit Diagnoses Not on filedocumented in this encounter Additional Health Concerns Infection Onset Date Last Indicated Resolved Time MRSA Comment:Added from external infection. Pt has had Staph infections but never MRSA from Care everywhere chart review. Removing MRSA 9.14.23 06/17/2019 02/06/2023 9:41 AM C DT documented as of this encounter Care Teams Boom Crane Operator Relationship Specialty Start Date End Date Ignacia Duran MD PCP - General Pediatrics 01/20/20 03/04/23 [place] [address] [place] [address] PCP - General 03/05/23 Carlos Joyner MD [address] [place] [address] 692115 Urology 12/09/19 Jadon Murray MD [facility] [address] [phone] Referring Physician Pediatric Surgery 12/09/19 Maru Villagomez, RN Registered Nurse 12/10/19 Carlos Joyner MD [address] [place] [address] 743405 Assigned Surgical Provider 03/17/20 Ang Slade MD [address] [place] [address] 757095 Urology 04/24/20 Ang Slade MD [address] [place] [address] 207465 Assigned Surgical Provider 08/13/20 Carlos Joyner MD [address] [place] [address] 299725 Assigned Surgical Provider 12/24/20 Annalise Orta PA-C 5200 [place] [address] Assigned Cancer Care Provider 05/13/21 11/01/22 Ang Slade MD [address] [place] [address] 236655 MD Urology 12/18/22 Lakshmi Wilhelm PA-C [address] [place] [address] 905435 Physician Airset Caster Urology 02/03/23 [place] [address] [place] [address] Assigned PCP 02/06/23 Alissa Perez PA-C [address] [place] [address] 175285 Physician Airset Caster Surgery 09/04/23 Lakshmi Wilhelm PA-C [address] [place] [address] 261985 Physician Airset Caster Urology 09/16/23 Aidee Valero PA-C [address] [place] [address] 200315 Assigned Musculoskeletal Provider 04/17/24 Tanisha Marlow 4120 [facility] [address] 03/30/24 documented as of this encounter
== END 2024-06-07 19:12 | disposition home or self-care (01) ==
LOC: ED 17:47
PROVIDERS: Emergency Provider Family Medicine; PCP Pediatrics
DX: R51.9 Headache, unspecified (principal); Z98.2 Presence of cerebrospinal fluid drainage device; R82.90 Unspecified abnormal findings in urine
CPT/HCPCS: 70450; 81001; 87086; 99284; A9270

== ENCOUNTER 2024-06-07 19:05 | Outpatient (CLI) | payer MEDICARE, BC, MEDICAID, SELFPAY | END 2024-06-07 19:06 | disposition home or self-care (01) | LOC: AMB 06-23 16:35 | PROVIDERS: PCP Pediatrics; Visit Provider Family Medicine | DX: G82.20 Paraplegia, unspecified (principal); R59.1 Generalized enlarged lymph nodes; N39.0 Urinary tract infection, site not specified; Z99.3 Dependence on wheelchair | CPT/HCPCS: A0425; A0428 ==

== ENCOUNTER 2024-06-10 20:01 | Emergency (ER) | payer MEDICARE, BC, MEDICAID, SELFPAY ==
--- OUTSIDE RECORDS SUMMARY | 2024-06-10 20:05 | XMS_ITS | Encounter Summary ---
Author Organization [place] Address [address] [place] [address]. [place] [address] Care Team Providers Care Cotton Grower Name Role Phone Carlos Joyner MD Unavailable [phone] Jadon Murray MD Unavailable [phone] Maru Villagomez RN Unavailable Unavailable Ang Slade MD Unavailable [phone] Carlos Joyner MD Unavailable +[phone] Ang Slade MD Unavailable +[phone] Lakshmi Wilhelm PA-C Unavailable [phone] Heladio Willoughby MD Primary Care Provider [phone] Heladio Willoughby MD Unavailable Alissa Perez PA-C Unavailable [phone] Lakshmi Wilhelm PA-C Unavailable [phone] Aidee Valero PA-C Unavailable [phone] Encounter Details Date Type Department Care Team (Late st Contact Info) Description 04/26/2024 [facility] Medical Advice [facility] [address] 4th [place] [address] Rosita Velasco, RN Social History [...] No additional needsat this time. OTILIO Becker Fit Model- Urology [phone] NSIC ARTIST documented in this encounter Plan of Treatment Upcoming Encounters Date Type Department Care Team (Late st Contact Info) Description 06/15/2024 9:30 AM FORENSIC ARTIST Office Visit [address] [address] Xu Prince MD [address] [place] [address] 06/15/2024 2:30 PM FORENSIC ARTIST [facility] [address] [place] [address] Andreea Cruz PA-C [address] [place] [address] 07/21/2024 4:00 PM FORENSIC ARTIST [facility] [address] [place] [address] [place] [address] [place] [address] documented as of this encounter Visit Diagnoses Not on filedocumented in this encounter Care Teams Cotton Grower Relationship Specialty Start Date End Date Heladio [place] [id number] [place], [place] [address], [place] [phone] PCP - General 03/05/23 Carlos Joyner MD [address] [place] [address] 447775 Urology 12/09/19 Jadon Murray MD [facility] 2530 [facility] 550 [place] [address] Referring Physician Pediatric Surgery 12/09/19 Maru Villagomez, OTILIO Registered Nurse 12/10/19 Ang Slade MD [address] [place] [address] 394 [place] [address] Urology 04/24/20 Carlos Joyner MD [address] [place] [address] Assigned Surgical Provider 12/24/20 Ang Slade MD [address] [place] [address] Urology 12/18/22 Lakshmi Wilhelm PA-C [address] [place] [address]397 Physician Production Line Operator Urology 02/03/23 [place] [address] [place] [address] Assigned PCP 02/06/23 Alissa Perez PA-C [address] [place] [address]487 Physician Production Line Operator Surgery 09/04/23 Lakshmi Wilhelm PA-C [address] [place] [address] Physician Production Line Operator Urology 09/16/23 Aidee Valero PA-C [address] [place] [address] Assigned Musculoskeletal Provider 04/17/24 Tanisha Marlow 4120 [facility] [address] 03/30/24 documented as of this encounter
--- OUTSIDE RECORDS SUMMARY | 2024-06-10 20:05 | XMS_ITS | Encounter Summary ---
Author Organization [place] Address [address] [place] [address] Care Team Providers Care Garbage Collector Driver Name Role Phone Carlos Joyner MD Unavailable [phone] Jadon Murrya MD Unavailable [phone] Maru Villagomez RN Unavailable Unavailable Ang Slade MD Unavailable [phone] Carlos Joyner MD Unavailable [phone] Ang Slade MD Unavailable Lakshmi Wilhelm-C Unavailable Heladio Willoughby MD Primary Care Provider [phone] Heladio Willoughby MD Unavailable Alissa Perez PA-C Unavailable [phone] Lakshmi Wilhelm-C Unavailable Aidee Valero PA-C Unavailable Encounter Details Date Type Department Care Team (Late st Contact Info) Description 04/26/2024 [facility] [address] 4th [place] [address] Carlos Joyner MD [address] [place] [address] Recurrent UTI (Primary Dx) Social History [...] UTI and antibiotic being sent to the [facility] in [place]. She voices understanding. Thank you, Hattie Wing RN, BSN Urology Triage Nurse BING ASSEMBLER documented in this encounter Plan of Treatment Upcoming Encounters Date Type Department Care Team (Late st Contact Info) Description 06/15/2024 9:30 AM PLUMBING ASSEMBLER Office Visit [address] [phone] Xu Prince MD 606 24[facility] 106 [place], [place] 3[address] 06/15/2024 2:30 PM PLUMBING ASSEMBLER Office Visit [facility] [address] [place] [address] Andreea Cruz PA-C [address] [place] [address] 07/21/2024 4:00 PM PLUMBING ASSEMBLER Office Visit [facility] [address] [place] [address] [place] [address] [place] [address] documented as of this encounter Visit Diagnoses Diagnosis Recurrent UTI- Primary Urinary tract infection, site not specified documented in this encounter Care Teams Garbage Collector Driver Relationship Specialty Start Date End [place] [id number] [place] [address] PCP - General 03/05/23 Carlos Joyner MD 9 [place] [address] Urology 12/09/19 Jadon Murray MD [facility] 2530 [facility] 550 [place], [place] [phone] Referring Physician Pediatric Surgery 12/09/19 Maru Villagomez, RN Registered Nurse 12/10/19 Ang Slade MD [address] [place] [address] [address] [place], [place] [id number] Urology 04/24/20 Carlos Joyner MD [address] [place] [address] [id number] Assigned Surgical Provider 12/24/20 Ang Slade MD [address] [place] [address] 087495 Urology 12/18/22 Lakshmi Wilhelm PA-C [address] [place] [address] 046695 Physician Coach Urology 02/03/23 [place] [address] [place] [address] Assigned PCP 02/06/23 Alissa Perez PA-C [address] [place] [address] 252255 Physician Coach Surgery 09/04/23 Lakshmi Wilhelm PA-C [address] [place] [address] 230995 Physician Coach Urology 09/16/23 Aidee Valero PA-C [address] [place] [address] 142705 Assigned Musculoskeletal Provider 04/17/24 Tanisha Marlow 4120 [facility] [address] 03/30/24 documented as of this encounter
--- OUTSIDE RECORDS SUMMARY | 2024-06-10 20:05 | XMS_ITS | Clinical Summary ---
Author Organization [place] Address [address] [place] [address] Care Team Providers Care Director Auto Name Role Phone Carlos Joyner MD Unavailable [phone] Jadon Murray MD Unavailable [phone] Maru Villagomez RN Unavailable Unavailable Ang Slade MD Unavailable [phone] Carlos Joyner MD Unavailable [phone] Ang Slade MD Unavailable [phone] Lakshmi Wilhelm-C Unavailable Heladio Willoughby MD Primary Care Provider [phone] Heladio Willoughby MD Unavailable Alissa Perez PA-C Unavailable [phone] Lakshmi Wilhelm-C Unavailable Aidee Valero PA-C [...] other 03/13/20 Active Wound Dressings ([facility] ALGINATE 2X2) PADSIndications:Pr essure ulcer acquired in [facility] Externally apply 1 each topically daily [...] Acute cystitis 04/04/2019 Ulcer, surgical 06/07/2011 S/P PRODUCTION DIRECTOR shunt 04/29/2011 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 (03/14/2020): Vertebra Absence Congenital Kyphosis (acquired) (postural) 08/04/2008 Overview (03/14/2020): Kyphosis Neurogenic bladder 07/22/2003 Overview (03/05/2023): LW Onset: 27Chh48 ; Paralysis Bladder Neurogenic bowel 07/22/2003 Overview (03/14/2020): LW Onset: [id number] Paraplegia 07/22/2003 Overview (04/18/2023): 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 07/22/2003 Overview (03/14/2020): LW Onset: ; Short Stature 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/22/2003 Overview (04/16/2023): LW Modifier: shunted LW Onset: 04Ufa75 ; Spina Bifida Lumbar w Hydrocephalus Resolved Problems Problem Noted Date Diagnosed Date Resolved Date Acute kidney failure, unspecified 02/10/2020 03/05/2023 Encounters Date Type Department Care Team Description 04/28/2024 Travel 04/26/2024 Orders Only [facility] [address] [phone] Carlos Joyner MD Recurrent UTI (Primary Dx) 04/26/2024 MyC Medical Advice [facility] [address] [phone] Rosita Velasco RN 04/21/2024 11:45 AM HOUSEHOLD PERSONAL ASSISTANT Lab [facility] [address] [place] [phone] Recurrent UTI 04/21/2024 Travel 04/21/2024 Orders Only [facility] [address] [phone] Carlos Joyner MD Recurrent UTI (Primary Dx) 04/21/2024 Telephone [facility] [address] [phone] Carlos Joyner MD Call Back (Pt still having UTI Symptoms. They are wanting to see about getting a new antibiotic. Please call Nurse guest experience manager at [phone]. Please call Yamini. As they would like to get something done prior to the holiday. Thanks ) 04/21/2024 Telephone [facility] [address] [place] [address] Heladio Willoughby MD 04/13/2024 Telephone [facility] [address] [place] [phone] Heladio Willoughby MD Orders 04/13/2024 Documentation Only [facility] [address] [phone] Estrella Martinez NP Forms; Orders (Catheter, lubrication, gloves) 04/12/2024 Medical Correspondence [facility] Information Management [address] [facility] [address] [place] [address] Scan, Non-Provider 04/01/2024 MyC Medical Advice [facility] [address] [phone] Aidee Valero PA-C 03/30/2024 2:00 PM HOUSEHOLD PERSONAL ASSISTANT Office Visit [facility] [address] [phone] Aidee Valero PA-C History of spinal fusion (Primary Dx); Thoracic spina bifida, unspecified hydrocephalus presence (H) 03/30/2024 1:40 PM HOUSEHOLD PERSONAL ASSISTANT Ancillary Procedure [facility] Xray [address] [phone] Aidee Valero PA-C Thoracic spina bifida, unspecified hydrocephalus presence (H) 03/30/2024 Telephone [facility] [address] [phone] Aidee Valero PA-C 03/30/2024 Travel 03/30/2024 PRE VISIT [facility] [address] [phone] Aidee Valero PA-C Previsit 03/25/2024 Travel 03/23/2024 Orders Only [facility] [address] [phone] Aidee Valero PA-C Thoracic spina bifida, unspecified hydrocephalus presence (H) (Primary Dx) from Last 3 Months Immunizations Name Administration Dates Next Due DTAP (<7y) 01/18/2008,05/06/2005 DTaP, Unspecified 01/16/2015 DTaP/HepB/IPV 05/27/2003,03/21/2003,2002 Flu, Unspecified 02/26/2016,02/21/2009, 4 E3q3-90 Novel Flu 03/18/2009 X2k3-33 Novel Flu P-free 03/30/2004,05/27/2003 HEPATITIS A (PEDS [...] 61.2 kg (135 lb) 03/30/2024 2:01 PM HOUSEHOLD PERSONAL ASSISTANT Height 147.3 cm (4' 10) 03/30/2024 2:01 PM HOUSEHOLD PERSONAL ASSISTANT Body Mass Index 28.22 03/30/2024 2:01 PM HOUSEHOLD PERSONAL ASSISTANT Plan of Treatment Upcoming Encounters Date Type Department Care Team (Late st Contact Info) Description 06/15/2024 9:30 AM HOUSEHOLD PERSONAL ASSISTANT Office Visit [facility] [address] [place] [phone] Xu Prince MD [address] [place] [address] 400544 06/15/2024 2:30 PM HOUSEHOLD PERSONAL ASSISTANT [facility] [address] [place] [address] Andreea Cruz PAEarlC [address] [place] [address] 07/21/2024 4:00 PM HOUSEHOLD PERSONAL ASSISTANT [facility] [address] [place] [address] [place] [address] [place] [address] Health Maintenance Due Date Last Done Comments ANNUAL REVIEW OF ORDERS 2002 MENINGITIS B IMMUNIZATION (1 of [...] this topic Medical Devices Implanted Type Area Bias Binding Folder Device Identifier Shelf Expiration Date Model / Serial / Lot Stent Ureteral Percuflex Plus [id number] - [id number] Implanted:Qty: 1 on 11/12/2021 by Carlos Joyner MD at [facility] Stent Right: Abdomen [employer] [id number] 12/26/2022 [id number] Ureteral Catheter 5 Sami Implanted:Qty: 1 on 03/31/2023 by Elizabeth Jacobsen MD at [facility] Right: Ureter 02/02/2026 [id number] / [id number] Description:5 khmer Uretera l catheter used as a stent in right ureter 5 Sami Open Ended Catheter Implanted:Qty: 1 on 03/31/2023 by Elizabeth Jacobsen MD at [facility] Left: Ureter 02/19/2026 [id number] / / [id number] Explanted Type Area Bias Binding Folder Device Identifier Shelf Expiration Date Model / Serial / Lot Stent Ureteral Percuflex Plus [id number] - [id number] Implanted:Qty: 1 on 05/10/2021 by Carlos Joyner MD at [facility] Explanted:Qty: 1 on 08/09/2021 by Jane Gomez MD at [facility] Stent Right: Urethra [employer] 06/14/2022 [id number] Description:Ureter Stent Ureteral Percuflex Plus [id number] - [id number] Implanted:Qty: 1 on 05/10/2021 by Carlos Joyner MD at [facility] Explanted:Qty: 1 on 08/09/2021 by Jane Gomez MD at [facility] Stent Left: Urethra [employer] 07/25/2022 [id number] Stent Ureteral Percuflex Plus [id number] - [id number] Implanted:Qty: 1 on 08/09/2021 by Jane Gomez MD at [facility] Explanted:Qty: 1 on 11/12/2021 at [facility] Stent Right: Ureter [employer] 02/29/2024 [id number] Stent Ureteral Percuflex Plus [id number] - [id number] Implanted:Qty: 1 on 08/09/2021 by Jane Gomez MD at [facility] Explanted:Qty: 1 on 11/12/2021 at [facility] Stent Right: Ureter [employer] 02/29/2024 [id number] 5 Fr X 22cm Ureteral Stent Explanted:Qty: 1 on 02/07/2020 by Carlos Joyner MD at [facility] COOK 5 Fr X 22cm Ureteral Stent Explanted:Qty: 1 on 02/07/2020 by Carlos Joyner MD at [facility] COOK Procedures Procedure Name Priority Date/Time Associated Diagnosis Comments URINE CULTURE Routine 04/21/2024 10:30 AM HOUSEHOLD PERSONAL ASSISTANT Recurrent UTI URINE MICROSCOPIC EXAM Routine 04/21/2024 10:30 AM HOUSEHOLD PERSONAL ASSISTANT Recurrent UTI ROUTINE UA WITH MICROSCOPIC Routine 04/21/2024 10:30 AM HOUSEHOLD PERSONAL ASSISTANT Recurrent UTI XR SPINE COMPLETE SCOLIOSIS 2 VIEWS Routine 03/30/2024 1:38 PM HOUSEHOLD PERSONAL ASSISTANT Thoracic spina bifida, unspecified hydrocephalus presence (H) from Last 3 Months Results * (ABNORMAL) UA with Microscopic (04/21/2024 10:30 AM HOUSEHOLD PERSONAL ASSISTANT) Color Urine Yellow Colorless, Straw, Light Yellow, Yellow 04/21/2024 11:45 AM HOUSEHOLD PERSONAL ASSISTANT [facility] Appearance Urine Clear Clear 04/21/20 24 11:45 AM HOUSEHOLD PERSONAL ASSISTANT [facility] Glucose Urine Negative Negative mg/dL 04/21/2024 11:45 AM HOUSEHOLD PERSONAL ASSISTANT [facility] Bilirubin Urine Negative Negative 11:45 AM HOUSEHOLD PERSONAL ASSISTANT [facility] Ketones Urine Negative Negative mg/dL 04/21/2024 11:45 AM HOUSEHOLD PERSONAL ASSISTANT [facility] Specific [place]ner Urine 1.020 1.003 - 1.035 04/21/2024 11:45 AM HOUSEHOLD PERSONAL ASSISTANT [facility] Blood Urine Negative Negative 04/21/2024 11:45 AM HOUSEHOLD PERSONAL ASSISTANT [facility] pH Urine 6.5 5.0 - 7.0 04/21/2024 11:45 AM HOUSEHOLD PERSONAL ASSISTANT [facility] Protein Albumin Urine Negative Negative mg/dL 04/21/2024 11:45 AM HOUSEHOLD PERSONAL ASSISTANT [facility] Urobilinogen Urine 0.2 0.2, 1.0 E.U./dL 04/21/2024 11:45 AM HOUSEHOLD PERSONAL ASSISTANT [facility] Nitrite Urine Positive(A) Negative 04/21/2024 11:45 AM HOUSEHOLD PERSONAL ASSISTANT [facility] Leukocyte Esterase Urine Large(A) Negative 04/21/2024 11:45 AM HOUSEHOLD PERSONAL ASSISTANT [facility] Urine URINE SPECIMEN OBTAINED BY CLEAN CATCH PROCEDURE / Unknown Non-blood Collection / Unknown 04/21/2024 10:30 AM HOUSEHOLD PERSONAL ASSISTANT 04/21/2024 11:40 AM HOUSEHOLD PERSONAL ASSISTANT Carlos Joyner MD LAB - URINE ORDERABLES Fin al Result Performing Organization Address City/[facility]/ZIP Co de Phone Number LABORATORY [facility] [address] [facility] (no room number, 1st floor of [facility]) [address] * (ABNORMAL) Urine Microscopic Exam (04/21/2024 10:30 AM HOUSEHOLD PERSONAL ASSISTANT) Bacteria Urine Moderate( A) None Seen /HPF LINDA 04/21/2024 11:48 AM HOUSEHOLD PERSONAL ASSISTANT LABORATORY RBC Urine 2-5(A) 0-2 /HPF /HPF LINDA 04/21/2024 11:48 AM HOUSEHOLD PERSONAL ASSISTANT [facility] WBC Urine 25-50(A) 0-5 /HPF /HPF LINDA 04/21/2024 11:48 AM HOUSEHOLD PERSONAL ASSISTANT LABORATORY Squamous Epithelials Urine Few(A) None Seen /LPF LINDA 04/21/2024 11:48 AM HOUSEHOLD PERSONAL ASSISTANT [facility] Urine URINE SPECIMEN OBTAINED BY CLEAN CATCH PROCEDURE / Unknown Non-blood Collection / Unknown 04/21/2024 10:30 AM HOUSEHOLD PERSONAL ASSISTANT 04/21/2024 11:40 AM HOUSEHOLD PERSONAL ASSISTANT Carlos Joyner MD LAB - URINE ORDERABLES Fin al Result Performing Organization Address [facility] de Phone Number LABORATORY [facility] [address] [facility] (no room number, [facility]st [facility]) [address] * (ABNORMAL) Urine Culture (04/21/2024 10:30 AM HOUSEHOLD PERSONAL ASSISTANT) Culture >100,000 CFU/mL Escherichia coli(A) LINDA 04/23/2024 8:04 PM HOUSEHOLD PERSONAL ASSISTANT [facility] Culture >100,000 CFU/mL Enterobacter cloacae complex(A) 04/23/2024 8:04 PM HOUSEHOLD PERSONAL ASSISTANT [facility] Urine MID-STREAM URINE SPECIMEN / Unknown Non-blood Collection / Unknown 04/21/2024 10:30 AM HOUSEHOLD PERSONAL ASSISTANT 04/21/2024 11:40 AM HOUSEHOLD PERSONAL ASSISTANT Narrative Organism Antibiotic Method Susceptibility Escherichia coli Ampicillin LINDA <=2 ug/mL: Susceptible Escherichia coli Ampicillin/ Sulbactam LINDA <=2 ug/mL: Susceptible Escherichia coli Piperacillin/Tazobactam LINDA <=4 ug/mL: Susceptible Escherichia coli Cefazolin LINDA <=4 ug/mL: Susceptible Comment:Cefazolin TN C breakpoints are for the treatment of [...] Final Result [facility] Inf. Diseases Diag. Lab [address] [facility], [address] [place] [address] * XR Spine Complete Scoliosis 2 Views (03/30/2024 1:38 PM HOUSEHOLD PERSONAL ASSISTANT) Anatomical Region Laterality Modality Spine Computed Radiogr aphy Impressions 03/31/2024 1:57 PM HOUSEHOLD PERSONAL ASSISTANT Impression: 1. Postoperative changes of T10 through pelvis fusion without evidence of hardware complication. 2. No substantial coronal curvature of the spine. 3. Negative global coronal imbalance. 4. Positive global sagittal imbalance. MILLA CHOI DO Narrative 03/31/2024 1:57 PM HOUSEHOLD PERSONAL ASSISTANT Exam: Full spine radiographs using EOS History: [...] spine. Negative global coronal imbalance. Sagittal Vertical [place] (A vertical line drawn from the center [...] spine. Negative global coronal imbalance. Sagittal Vertical [place] (A vertical line drawn from the center [...] 3 Months Insurance [place] [facility] IN[facility]UAL [facility] INDIV[facility]UAL [place] [facility] INDIV[facility]UAL [facility] [place]UAL [place] [facility] INDIV[facility]UAL Advance Directives For more information, please contact: [phone] Documents on File Type Date Recorded Patient Stick Welder Expl anation Advance Directives and Living Will [...] continue PREVIOUSLY ORDERED code status Care Teams Director Auto Relationship Specialty [place] [address] [place] [address] PCP - General 03/05/23 Carlos Joyner MD [address] [place] [address] Urology 12/09/19 Jadon Murray MD [facility] 25[address] [facility] [address] [address] Referring Physician Pediatric Surgery 12/09/19 Maru Villagomez, RN Registered Nurse 12/10/19 Ang Slade MD [address] [place] [address] 762755 Urology 04/24/20 Carlos Joyner MD [address] [place] [address] 191115 Assigned Surgical Provider 12/24/20 Ang Slade MD [address] [place] [address] 047225 Urology 12/18/22 Lakshmi Wilhelm PA-C [address] [place] [address] 599385 Physician Automatic Coin Machine Mechanic Urology 02/03/23 [place] [address] [place] [address] Assigned PCP 02/06/23 Alissa Perez PA-C [address] [place] [address] Physician Automatic Coin Machine Mechanic Surgery 09/04/23 Lakshmi Wilhelm PA-C [address] [place] [address] Physician Automatic Coin Machine Mechanic Urology 09/16/23 Aidee Valero PA-C [address] [place] [address] 23384 Assigned Musculoskeletal Provider 04/17/24 Tanisha Marlow 4[address] [facility] [id number] 03/30/24
--- OUTSIDE RECORDS SUMMARY | 2024-06-10 20:05 | XMS_ITS | Encounter Summary ---
Author Organization [place] Address [address] [place] [address] Care Team Providers Care Labor Service Representative Name Role Phone Carlos Joyner MD Unavailable [phone] Jadon Murray MD Unavailable [phone] Maru Villagomez RN Unavailable Unavailable Ang Slade MD Unavailable [phone] Carlos Joyner MD Unavailable [phone] Ang Slade MD Unavailable [phone] Lakshmi Wilhelm-C Unavailable [phone] Heladio Willoughby MD Primary Care Provider [phone] Heladio Willoughby MD Unavailable Alissa Perez PA-C Unavailable [phone] Lakshmi Wilhelm-C Unavailable [phone] Aidee Valero PA-C Unavailable [phone] Reason for Visit * Reason Onset Date Comments Call Back 04/21/2024 Pt still having UTI Symptoms. They are wanting to see about getting a new antibiotic. Please call Nurse outside sales manager at [phone]. Please call Yamini. As they would like to get something done prior to the holiday. Thanks Encounter Details Date Type Department Care Team ([facility] st Contact Info) Description 04/21/2024 Telephone [facility] [address] 4th [place] [address] Carlos Joyner MD [address] [place] [address] Call Back (Pt still having UTI Symptoms. They are wanting to see about getting a new antibiotic. Please call Nurse outside sales manager at [phone]. Please call Yamini. As they would like [...] getting a new antibiotic. Please call Nurse outside sales manager at [phone]. Please call Yamini. As they would like to get something done prior to the holiday. Thanks Action Taken: Other: uro Travel Screening: Not Applicable Date of Service: S PROJECT ADMINISTRATOR documented in this encounter Plan of Treatment Upcoming Encounters Date Type Department Care Team (Late st Contact Info) Description 06/15/2024 9:30 AM SALES PROJECT ADMINISTRATOR Office Visit [address] [phone] Xu Prince MD [address] [place] [address] 993964 06/15/2024 2:30 PM SALES PROJECT ADMINISTRATOR Office Visit [facility] [address] [place] [address] Andreea Cruz PA-C [address] [place] [address] 07/21/2024 4:00 PM SALES PROJECT ADMINISTRATOR Office Visit [facility] [address] [place] [address] [place] [address] [place], [place] [phone] documented as of this encounter Visit Diagnoses Not on filedocumented in this encounter Care Teams Labor Service Representative Relationship Specialty Start [place] [address] [place], [place] [phone] PCP - General 03/05/23 Carlos Joyner MD [address] [place] [address] 061395 Urology 12/09/19 Jadon Murray MD [facility] 2530 [facility] [address] [place] [address] Referring Physician Pediatric Surgery 12/09/19 Maru Villagomez, RN Registered Nurse 12/10/19 Ang Slade MD 420 [facility] [address] [place], [place] 873405 Urology 04/24/20 Carlos Joyner MD [address] [place] [address] 471875 Assigned Surgical Provider 12/24/20 Ang Slade MD 420 [facility] 394 [place], [place] 086875 Urology 12/18/22 Lakshmi Wilhelm PA-C [address] [place] [address] 651175 Physician Recreation Facilities Supervisor Urology 02/03/23 [place] [address] [place] [address] Assigned PCP 02/06/23 Alissa Perez PA-C [address] [place] [address] 801415 Physician Recreation Facilities Supervisor Surgery 09/04/23 Lakshmi Wilhelm PA-C [address] [place] [address] Physician Recreation Facilities Supervisor Urology 09/16/23 Aidee Valero, [facility] [address] [place] [address] Assigned Musculoskeletal Provider 04/17/24 Tanisha Marlow 4[address] [facility] [address] 03/30/24 documented as of this encounter
--- OUTSIDE RECORDS SUMMARY | 2024-06-10 20:05 | XMS_ITS | Encounter Summary ---
Author Organization [facility] Address [address] [place] [address] Care Team Providers Care Shoe Repair Supervisor Name Role Phone Carlos Joyner MD Unavailable [phone] Jadon Murray MD Unavailable + [phone] Maru Villagomez RN Unavailable Unavailable Ang Slade MD Unavailable [phone] Carlos Joyner MD Unavailable [phone] Ang Slade MD Unavailable [phone] Lakshmi Wilhelm-C Unavailable [phone] Heladio Willoughby MD Primary Care Provider [phone] Heladio Willoughby MD Unavailable Alissa Perez PA-C Unavailable [phone] Lakshmi Wilhelm-C Unavailable [phone] Aidee Valero PA-C Unavailable [phone] Encounter Details Date Type Department Care Team [...] st Contact Info) Description 06/15/2024 9:30 AM BLOCKING MACHINE OPERATOR Office Visit [address] [phone] Xu Prince MD [address] [place] [address] 323244 06/15/2024 2:30 PM BLOCKING MACHINE OPERATOR Office Visit [facility] [address] [place] [address] Andreea Cruz PA-C [address] [place] [address] 07/21/2024 4:00 PM BLOCKING MACHINE OPERATOR Office Visit [facility] [address] [place] [address] [place] [address] [place] [address] documented as of this encounter Visit Diagnoses Not on filedocumented in this encounter Care Teams Shoe Repair Supervisor Relationship Specialty [place] [address] [place] [address] PCP - General 03/05/23 Carlos Joyner MD [address] [place] [address] 430675 Urology 12/09/19 Jadon Murray MD [facility] [address] [phone] Referring Physician Pediatric Surgery 12/09/19 Maru Villagomez, RN Registered Nurse 12/10/19 Ang Slade MD [address] [place] [address] 835165 Urology 04/24/20 Carlos Joyner MD [address] [place] [address] 636565 Assigned Surgical Provider 12/24/20 Ang Slade MD [address] [place] [address]67 Urology 12/18/22 Lakshmi Wilhelm PA-C [address] [place] [address] 099405 Physician Truck Railroad And Bus Motor Mechanic Urology 02/03/23 [place] [address] [place] [address] Assigned PCP 02/06/23 Alissa Perez PA-C [address] [place] [address] Physician Truck Railroad And Bus Motor Mechanic Surgery 09/04/23 Lakshmi Wilhelm PA-C [address] [place] [address]10 Physician Truck Railroad And Bus Motor Mechanic Urology 09/16/23 Aidee Valero PA-C 909 [place] [address] Assigned Musculoskeletal Provider 04/17/24 Tanisha Marlow 4120 [facility] [address] 03/30/24 documented as of this encounter
--- OUTSIDE RECORDS SUMMARY | 2024-06-10 20:05 | XMS_ITS | Referral Summary ---
Author Organization [facility] Address [address] [place] [address] Care Team Providers Care Material Assembler Name Role Phone Carlos Joyner MD Unavailable [phone] Jadon Murray MD Unavailable [phone] Maru Villagomez RN Unavailable Unavailable Ang Slade MD Unavailable [phone] Carlos Joyner MD Unavailable [phone] Ang Slade MD Unavailable [phone] Lakshmi Wilhelm PA-C Unavailable [phone] Heladio Willoughby MD Primary Care Provider [phone] Heladio Willoughby MD Unavailable Alissa Perez PA-C Unavailable [phone] Lakshmi Wilhelm PA-C Unavailable Aidee Valero PA-C Unavailable [phone] Encounters Date Type Department Care Team Description 04/28/2024 Travel 04/26/2024 Orders Only [facility] Urology [address] [place] [address] Carlos Joyner MD Recurrent UTI (Primary Dx) 04/26/2024 MyC Medical Advice [facility] Urology [address] [place] [address] Rosita Velasco RN 04/21/2024 Travel 04/21/2024 11:45 AM JET OPERATOR Lab [facility] [address] [place] [address] Recurrent UTI 04/21/2024 Orders Only [facility] Urology [address] [phone] Carlos Joyner MD Recurrent UTI (Primary Dx) 04/21/2024 Telephone [facility] Urology [address] [address] Carlos Joyner MD Call Back (Pt still having UTI Symptoms. They are wanting to see about getting a new antibiotic. Please call Nurse manager packaging at [phone]. Please call Yamini. As they would like to get something done prior to the holiday. Thanks ) 04/21/2024 Telephone [facility] [address] [place] [address] Heladio Willoughby MD 04/13/2024 Telephone [facility] [address] [place] [address] Heladio Willoughby MD Orders 04/13/2024 Documentation Only [facility] Urology [address] [phone] Estrella Martinez NP Forms; Orders (Catheter, lubrication, gloves) 04/12/2024 Medical Correspondence [facility] Health Information Management [address] [facility] [address] [place] [address] Scan, Non-Provider 04/01/2024 MyC Medical Advice [facility] Orthopedic [address] [phone] Aidee Valero PA-C 03/30/2024 Telephone [facility] Orthopedic [address] [phone] Aidee Valero PA-C 03/30/2024 Travel 03/30/2024 PRE VISIT [facility] Orthopedic Clinic [address] [phone] Aidee Valero PA-C Previsit 03/30/2024 1:40 PM JET OPERATOR Ancillary Procedure [facility] Orthopedic Xray [address] [phone] Aidee Valero PA-C Thoracic spina bifida, unspecified hydrocephalus presence (H) 03/30/2024 2:00 PM JET OPERATOR Office Visit [facility] Orthopedic [address] [phone] Aidee Valero PA-C History of spinal fusion (Primary Dx); Thoracic spina bifida, unspecified hydrocephalus presence (H) 03/25/2024 Travel 03/23/2024 Orders Only [facility] Orthopedic [address] [phone] Aidee Valero PA-C Thoracic spina bifida, unspecified [...] Refill(s), Maintenance, other 03/13/20 Active Wound Dressings ([facility] ALGINATE 2X2) PADSIndications:Pr essure ulcer acquired in formerly [facility] Externally apply 1 each topically daily [...] Acute cystitis 04/04/2019 Ulcer, surgical 06/07/2011 S/P INSPECTOR OUTSIDE STEAM DISTRIBUTION shunt 04/29/2011 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 (03/14/2020): Vertebra Absence Congenital Kyphosis (acquired) (postural) 08/04/2008 Overview (03/14/2020): Kyphosis Neurogenic bladder 07/22/2003 Overview (03/05/2023): LW Onset: 84Tro84 ; Paralysis Bladder Neurogenic bowel 07/22/2003 Overview (03/14/2020): LW Onset: 29Rrz92 Paraplegia 07/22/2003 Overview (04/18/2023): 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 07/22/2003 Overview (03/14/2020): LW Onset: 59Epn73 ; Short Stature 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/22/2003 Overview (04/16/2023): LW Modifier: shunted LW Onset: 22Tud74 ; Spina Bifida Lumbar w Hydrocephalus Resolved Problems Problem Noted Date Diagnosed Date Resolved Date Acute kidney failure, unspecified 02/10/2020 03/05/2023 Immunizations Name Administration Dates Next Due DTAP (<7y) 01/18/2008,05/06/2005 DTaP, Unspecified 01/16/2015 DTaP/HepB/IPV 05/27/2003,03/21/2003,2002 Flu, Unspecified 02/26/2016,02/21/2009, 4 [id number] Novel Flu 03/18/2009 [id number] Novel Flu P-free 03/30/2004,05/27/2003 HEPATITIS A (PEDS [...] 61.2 kg (135 lb) 03/30/2024 2:01 PM JET OPERATOR Height 147.3 cm (4' 10) 03/30/2024 2:01 PM JET OPERATOR Body Mass Index 28.22 03/30/2024 2:01 PM JET OPERATOR Plan of Treatment Upcoming Encounters Date Type Department Care Team (Late st Contact Info) Description 06/15/2024 9:30 AM JET OPERATOR Office Visit [facility] [address] [facility] [place] [phone] Xu Prince MD [address] [place] [address] 06/15/2024 2:30 PM JET OPERATOR [facility] [address] [place] [address] Andreea Cruz PA-C [address] [place] [address] 07/21/2024 4:00 PM JET OPERATOR [facility] [address] [place] [address] [place] [address] [place] [address] Medical Devices Implanted Type Area Joint Cutter Machine Device Identifier Shelf Expiration Date Model / Serial / Lot Stent Ureteral Percuflex Plus [id number] - [id number] Implanted:Qty: 1 on 11/12/2021 by Carlos Joyner MD at [facility] Stent Right: Abdomen [employer] [id number] 12/26/2022 [id number] Ureteral Catheter 5 Danish Implanted:Qty: 1 on 03/31/2023 by Elizabeth Jacobsen MD at [facility] Right: Ureter 02/02/2026 [id number] Description:5 uzbek Uretera l catheter used as a stent in right ureter 5 Danish Open Ended Catheter Implanted:Qty: 1 on 03/31/2023 by Elizabeth Jacobsen MD at [facility] Left: Ureter 02/19/2026 [id number] / [id number] Explanted Type Area Joint Cutter Machine Device Identifier Shelf Expiration Date Model / Serial / Lot Stent Ureteral Percuflex Plus [id number] - [id number] Implanted:Qty: 1 on 05/10/2021 by Carlos Joyner MD at [facility] Explanted:Qty: 1 on 08/09/2021 by Jane Gomez MD at [facility] Stent Right: Urethra [employer] 06/14/2022 [id number] Description:Ureter Stent Ureteral Percuflex Plus [id number] - [id number] Implanted:Qty: 1 on 05/10/2021 by Carlos Joyner MD at [facility] Explanted:Qty: 1 on 08/09/2021 by Jane Gomez MD at [facility] Stent Left: Urethra [employer] 07/25/2022 [id number] Stent Ureteral Percuflex Plus [id number] - [id number] Implanted:Qty: 1 on 08/09/2021 by Jane Gomez MD at [facility] Explanted:Qty: 1 on 11/12/2021 at [facility] Stent Right: Ureter [employer] 02/29/2024 [id number] Stent Ureteral Percuflex Plus [id number] - [id number] Implanted:Qty: 1 on 08/09/2021 by Jane Gomez MD at [facility] Explanted:Qty: 1 on 11/12/2021 at [facility] Stent Right: Ureter [employer] 02/29/2024 [id number] 5 Fr X 22cm Ureteral Stent Explanted:Qty: 1 on 02/07/2020 by Carlos Joyner MD at [facility] COOK 5 Fr X 22cm Ureteral Stent Explanted:Qty: 1 on 02/07/2020 by Carlos Joyner MD at [facility] COOK Procedures Procedure Name Priority Date/Time Associated Diagnosis Comments URINE CULTURE Routine 04/21/2024 10:30 AM JET OPERATOR Recurrent UTI URINE MICROSCOPIC EXAM Routine 04/21/2024 10:30 AM JET OPERATOR Recurrent UTI ROUTINE UA WITH MICROSCOPIC Routine 04/21/2024 10:30 AM JET OPERATOR Recurrent UTI XR SPINE COMPLETE SCOLIOSIS 2 VIEWS Routine 03/30/2024 1:38 PM JET OPERATOR Thoracic spina bifida, unspecified hydrocephalus presence (H) from Last 3 Months Results * (ABNORMAL) UA with Microscopic (04/21/2024 10:30 AM JET OPERATOR) Color Urine Yellow Colorless, Straw, Light Yellow, Yellow 04/21/2024 11:45 AM JET OPERATOR [facility] Appearance Urine Clear Clear 04/21/20 11:45 AM JET OPERATOR [facility] Glucose Urine Negative Negative mg/dL 04/21/2024 11:45 AM JET OPERATOR [facility] Bilirubin Urine Negative Negative 11:45 AM JET OPERATOR [facility] Ketones Urine Negative Negative mg/dL 04/21/2024 11:45 AM JET OPERATOR [facility] Specific Moriah Urine 1.020 1.003 - 1.035 04/21/2024 11:45 AM JET OPERATOR [facility] Blood Urine Negative Negative 04/21/2024 11:45 AM JET OPERATOR [facility] pH Urine 6.5 5.0 - 7.0 04/21/2024 11:45 AM JET OPERATOR [facility] Protein Albumin Urine Negative Negative mg/dL 04/21/2024 11:45 AM JET OPERATOR [facility] Urobilinogen Urine 0.2 0.2, 1.0 E.U./dL 04/21/2024 11:45 AM JET OPERATOR [facility] Nitrite Urine Positive(A) Negative 04/21/2024 11:45 AM JET OPERATOR [facility] Leukocyte Esterase Urine Large(A) Negative 04/21/2024 11:45 AM JET OPERATOR LABORATORY Urine URINE SPECIMEN OBTAINED BY CLEAN CATCH PROCEDURE / Unknown Non-blood Collection / Unknown 04/21/2024 10:30 AM JET OPERATOR 04/21/2024 11:40 AM JET OPERATOR Carlos Joyner MD LAB - URINE ORDERABLES Fin al Result Performing Organization Address [facility] Co de Phone Number LABORATORY [facility] [address] [place] [address] Lab (no room number, 1st floor of [facility]) [address] * (ABNORMAL) Urine Microscopic Exam (04/21/2024 10:30 AM JET OPERATOR) Bacteria Urine Moderate( A) None Seen /HPF LINDA 04/21/2024 11:48 AM JET OPERATOR LABORATORY RBC Urine 2-5(A) 0-2 /HPF /HPF LINDA 04/21/2024 11:48 AM JET OPERATOR LABORATORY WBC Urine 25-50(A) 0-5 /HPF /HPF LINDA 04/21/2024 11:48 AM JET OPERATOR LABORATORY Squamous Epithelials Urine Few(A) None Seen /LPF LINDA 04/21/2024 11:48 AM JET OPERATOR LABORATORY Urine URINE SPECIMEN OBTAINED BY CLEAN CATCH PROCEDURE / Unknown Non-blood Collection / Unknown 04/21/2024 10:30 AM JET OPERATOR 04/21/2024 11:40 AM JET OPERATOR Carlos Joyner MD LAB - URINE ORDERABLES Fin al Result Performing Organization Address City/[facility] de Phone Number LABORATORY [facility] [address] [place] [address] Lab (no room number, 1st floor of [facility]) [address] * (ABNORMAL) Urine Culture (04/21/2024 10:30 AM JET OPERATOR) Culture >100,000 CFU/mL Escherichia coli(A) LINDA 04/23/2024 8:04 PM JET OPERATOR [facility] Culture >100,000 CFU/mL Enterobacter cloacae complex(A) 04/23/2024 8:04 PM JET OPERATOR [facility] Urine MID-STREAM URINE SPECIMEN / Unknown Non-blood Collection / Unknown 04/21/2024 10:30 AM JET OPERATOR 04/21/2024 11:40 AM JET OPERATOR Narrative Organism Antibiotic Method Susceptibility Escherichia coli Ampicillin LINDA <=2 ug/mL: Susceptible Escherichia coli Ampicillin/ Sulbactam LINDA <=2 ug/mL: Susceptible Escherichia coli Piperacillin/Tazobactam LINDA <=4 ug/mL: Susceptible Escherichia coli Cefazolin LINDA <=4 ug/mL: Susceptible Comment:Cefazolin [place] C breakpoints are for the treatment of [...] [facility] Di[facility] Lab [address] [facility], Room [address] [place] [address] * XR Spine Complete Scoliosis 2 Views (03/30/2024 1:38 PM JET OPERATOR) Anatomical Region Laterality Modality Spine Computed Radiogr aphy Impressions 03/31/2024 1:57 PM JET OPERATOR Impression: 1. Postoperative changes of T10 through pelvis fusion without evidence of hardware complication. 2. No substantial coronal curvature of the spine. 3. Negative global coronal imbalance. 4. Positive global sagittal imbalance. MILLA CHOI DO Narrative 03/31/2024 1:57 PM JET OPERATOR Exam: Full spine radiographs using EOS History: [...] spine. Negative global coronal imbalance. Sagittal Vertical [place] (A vertical line drawn from the center [...] spine. Negative global coronal imbalance. 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 Expl anation Advance Directives and Living [...] continue PREVIOUSLY ORDERED code status Care Teams Material Assembler Relationship Specialty [place] [address] [address] [place], [place] [phone] PCP - General 03/05/23 Carlos Joyner MD [address] [place] [address] 018705 Urology 12/09/19 Jadon Murray MD [facility] [address] [facility] [address] [place], [place] [phone] Referring Physician Pediatric Surgery 12/09/19 Maru Villagomez, RN Registered Nurse 12/10/19 Ang Slade MD [address] [place] [address] 394 [place], [place] 311505 Urology 04/24/20 Carlos Joyner MD [address] [place] [address] 094195 Assigned Surgical Provider 12/24/20 Ang Slade MD [address] [place] [address] 394 [place] [address] Urology 12/18/22 Lakshmi Wilhelm PA-C [address] [place] [address] 019545 Physician Industrial Real Estate Agent Urology 02/03/23 [place] [address] [place] [address] Assigned PCP 02/06/23 Alissa Perez PA-C [address] [place] [address] 943955 Physician Industrial Real Estate Agent Surgery 09/04/23 Lakshmi Wilhelm PA-C [address] [place] [address] 814295 Physician Industrial Real Estate Agent Urology 09/16/23 Aidee Valero PA-C [address] [place] [address] 259805 Assigned Musculoskeletal Provider 04/17/24 Tanisha Marlow [address] [facility] [address] 03/30/24
--- OUTSIDE RECORDS SUMMARY | 2024-06-10 20:06 | XMS_ITS | Encounter Summary ---
Author Organization [facility] Address [address] [place] [address] Care Team Providers Care Roast Master Name Role Phone Carlos Joyner MD Unavailable [phone] Jadon Murray MD Unavailable [phone] Maru Villagomez RN Unavailable Unavailable Ang Slade MD Unavailable [phone] Carlos Joyner MD Unavailable [phone] Ang Slade MD Unavailable [phone] Lakshmi WilhelmC Unavailable [phone] Heladio Willoughby MD Primary Care Provider [phone] Heladio Willoughby MD Unavailable Alissa Perez PA-C Unavailable [phone] Lakshmi WilhelmC Unavailable [phone] Aidee ValeroC Unavailable [phone] Encounter Details Date Type Department Care Team (Late st Contact Info) Description 03/30/[address] [facility] [address] 4[address] [place] [address] Aidee Valero PA-C [address] [place] [address] Social History Tobacco Use Types Packs/Day [...] Natalie Abdullahi - 03/30/2024 3:23 PM CST [facility] Call Center Phone Message May a detailed message be left on voicemail: yes Reason for Call: Other: Anna is calling from Medical Records at [facility]. She is calling as she wants to know the time frame of records that are being requested? Action Taken: Other: te Travel Screening: Not Applicable Date of Service: NE STEWARD documented in this encounter Plan of Treatment Upcoming Encounters Date Type Department Care Team (Late st Contact Info) Description 06/15/2024 9:30 AM MARINE STEWARD Office Visit [facility] [address] [place] [phone] Xu Prince MD 606 [facility] [address] [place], [place] [address]304 06/15/2024 2:30 PM MARINE STEWARD [facility] [address] [place] [address] Andreea Cruz PA-C [address] [place] [address] 07/21/2024 4:00 PM MARINE STEWARD [facility] [address] [place] [address] [place] [address] [place] [address] documented as of this encounter Visit Diagnoses Not on filedocumented in this encounter Care Teams Roast Master Relationship Specialty Start Date End Date Heladio [place] [address] [place] [address] PCP - General 03/05/23 Carlos Joyner MD [address] [place] [address] 813065 Urology 12/09/19 Jadon Murray MD [facility] 25[address] [facility] 550 [place], [place] [phone] Referring Physician Pediatric Surgery 12/09/19 Maru Villagomez, RN Registered Nurse 12/10/19 Ang Slade MD [address] [place] [address] 394 [place] [address] Urology 04/24/20 Carlos Joyner MD [address] [place] [address] Assigned Surgical Provider 12/24/20 Ang Slade MD [address] [place] [address] Urology 12/18/22 Lakshmi Wilhelm PA-C [address] [place] [address] Physician Outside Physical Damage Appraiser Urology 02/03/23 [place] [address] [place] [address] Assigned PCP 02/06/23 Alissa Perez PA-C [address] [place] [address] 834415 Physician Outside Physical Damage Appraiser Surgery 09/04/23 Lakshmi Wilhelm PA-C [address] [place] [address] 228425 Physician Outside Physical Damage Appraiser Urology 09/16/23 Aidee Valero PA-C [address] [place] [address] 350575 Assigned Musculoskeletal Provider 04/17/24 Tanisha Marlow 4120 [facility] [address] 03/30/24 documented as of this encounter
--- OUTSIDE RECORDS SUMMARY | 2024-06-10 20:06 | XMS_ITS | Encounter Summary ---
Author Organization [facility] Address [address] [place] [address] Care Team Providers Care Pipe Layer Helper Name Role Phone Carlos Joyner MD Unavailable [phone] Jadon Murray MD Unavailable [phone] Maru Villagomez RN Unavailable Unavailable Ang Slade MD Unavailable [phone] Carlos Joyner MD Unavailable [phone] Ang Slade MD Unavailable [phone] Lakshmi WilhelmC Unavailable [phone] Heladio Willoughby MD Primary Care Provider [phone] Heladio Willoughby MD Unavailable Alissa Perez PA-C Unavailable [phone] Lakshmi WilhelmC Unavailable [phone] Aidee ValeroC Unavailable [phone] Encounter Details Date Type Department Care Team (Late st Contact Info) Description 04/01/2024 [facility] [place] [facility] [address] [place] [address] Aidee Valero PA-C [address] [place] [address] Social History Tobacco Use Types Packs/Day [...] st Contact Info) Description 06/15/2024 9:30 AM FIRMWARE SOFTWARE VERIFICATION ENGINEER Office Visit [address] [address] Xu Prince MD [address] [place] [address] 06/15/2024 2:30 PM FIRMWARE SOFTWARE VERIFICATION ENGINEER Office Visit [facility] [address] [place] [address] Andreea Cruz, PAEarlC [address] [facility] [place] 77394[address] 07/21/2024 4:00 PM FIRMWARE SOFTWARE VERIFICATION ENGINEER [facility] [address] [facility] [place] [phone] [place] [address] [address] [place], [place] 9194668 documented as of this encounter Visit Diagnoses Not on filedocumented in this encounter Care Teams Pipe Layer Helper Relationship Specialty Start [place] [address] [address] [place], [place] [phone] PCP - General 03/05/23 Carlos Joyner MD [address] [place] [address] 143115 Urology 12/09/19 Jadon Murray MD [facility] 25[address] [facility] 550 [place], [place] [phone] Referring Physician Pediatric Surgery 12/09/19 Maru Villagomez, RN Registered Nurse 12/10/19 Ang Slade MD [address] [place] [address] Urology 04/24/20 Carlos Joyner MD [address] [place] [address] 701295 Assigned Surgical Provider 12/24/20 Ang Slade MD [address] [place] [address] 394 [place] [address] Urology 12/18/22 Lakshmi Wilhelm PA-C [address] [place] [address] 922565 Physician Data Steward Urology 02/03/23 [place] [address] [facility] [place] [address] Assigned PCP 02/06/23 Alissa Perez PA-C [address] [place] [address] Physician Data Steward Surgery 09/04/23 Lakshmi Wilhelm PA-C [address] [place] [address] Physician Data Steward Urology 09/16/23 Aidee Valero PA-C [address] [place] [address] 441345 Assigned Musculoskeletal Provider 04/17/24 Tanisha Marlow 4120 [facility] [address] 03/30/24 documented as of this encounter
--- OUTSIDE RECORDS SUMMARY | 2024-06-10 20:07 | XMS_ITS | Encounter Summary ---
Author Organization [place] Address [address] [place] [address] Care Team Providers Care Auger Machine Offbearer Name Role Phone Carlos Joyner MD Unavailable [phone] Jadon Murray MD Unavailable +[phone] Maru Villagomez RN Unavailable Unavailable Ang Slade MD Unavailable +[phone] Carlos Joyner MD Unavailable +[phone] Ang Slade MD Unavailable +[phone] Lakshmi Wilhelm PA-C Unavailable +[phone] Heladio Willoughby MD Primary Care Provider [phone] Heladio Willoughby MD Unavailable Alissa Perez PA-C Unavailable [phone] Lakshmi Wilhelm PA-C Unavailable +[phone] Aidee Valero PA-C Unavailable +[phone] Encounter Details Date Type Department Care Team (Late st Contact Info) Description 06/25/2023 [facility] [address] [place] [address] Carlos Joyner MD [address] [place] [address] Social History Tobacco Use Types Packs/Day [...] Contact Info) Description 06/15/2024 9:30 AM MANAGER INTERNET RETAILS SALES Office Visit [address] [address] Xu Prince MD [address] [place] [address] 06/15/2024 2:30 PM MANAGER INTERNET RETAILS SALES Office Visit [facility] [address] [place] [address] Andreea Cruz, PAEarlC [address]269 [facility] [place], [place] 0616468 07/21/2024 4:00 PM MANAGER INTERNET RETAILS SALES Office Visit [facility] [address] [facility] [place] [phone] [place] [address] [address] [place], [place] 1414768 documented as of this encounter Visit Diagnoses Not on filedocumented in this encounter Care Teams Auger Machine Offbearer Relationship Specialty [place] [address] [facility] [place], [place] 4042868 PCP - General 03/05/23 Carlos Joyner MD [address] [place] [address] 771365 Urology 12/09/19 Jadon Murray MD [facility] [address] [facility] 550 [place] [address] Referring Physician Pediatric Surgery 12/09/19 Maru Villagomez, OTILIO Registered Nurse 12/10/19 Ang Slade MD [address] [place] [address] 34317 Urology 04/24/20 Carlos Joyner MD [address] [place] [address] 900575 Assigned Surgical Provider 12/24/20 Ang Slade MD [address] [place] [address] 06440 Urology 12/18/22 Lakshmi Wilhelm PA-C [address] [place] [address] 277895 Physician Commercial Green Building Designer Urology 02/03/23 [place] [address] [facility] [place] [address] Assigned PCP 02/06/23 Alissa Perez PA-C [address] [place] [address] 10789 Physician Commercial Green Building Designer Surgery 09/04/23 Lakshmi Wilhelm PA-C [address] [place] [address] 94368 Physician Commercial Green Building Designer Urology 09/16/23 Aidee Valero PA-C [address] [place] [address] 206905 Assigned Musculoskeletal Provider 04/17/24 Tanisha Marlow 4120 [facility] [address] 03/30/24 documented as of this encounter
--- OUTSIDE RECORDS SUMMARY | 2024-06-10 20:07 | XMS_ITS | Encounter Summary ---
Author Organization [place] Address [address] [place] [address]. [place] [address] Care Team Providers Care Veterans Service Representative Name Role Phone Carlos Joyner MD Unavailable [phone] Jadon Murray MD Unavailable +[phone] Maru Villagomez RN Unavailable Unavailable Ang Slade MD Unavailable +[phone] Carlos Joynre MD Unavailable +[phone] Ang Slade MD Unavailable +[phone] Lakshmi Wilhelm PA-C Unavailable +[phone] Heladio Willoughby MD Primary Care Provider [phone] Heladio Willoughby MD Unavailable Alissa Perez PA-C Unavailable [phone] Lakshmi Wilhelm PA-C Unavailable +[phone] Aidee Valero PA-C Unavailable +[phone] Encounter Details Date Type Department Care Team (Late st Contact Info) Description 05/05/2023 [facility] [address] 4th [place] [address] Rosita Velasco, RN Social History [...] Contact Info) Description 06/15/2024 9:30 AM GLASS CURVATURE GAUGER Office Visit [address] [address] Xu Prince MD [address] [place] [address] 502294 06/15/2024 2:30 PM GLASS CURVATURE GAUGER Office Visit [facility] [address] [place] [phone] Andreea Cruz PA-C [address] [place], [place] 6224068 07/21/2024 4:00 PM GLASS CURVATURE GAUGER Office Visit [facility] [place] [address] [address] [phone] [place] [address] [address] [place] [id number] documented as of this encounter Visit Diagnoses Not on filedocumented in this encounter Care Teams Veterans Service Representative Relationship Specialty [place] [address] [address] [phone] PCP - General 03/05/23 Carlos Joyner MD [address] [place] [address] 67964 Urology 12/09/19 Jadon Murray MD [facility] 2530 [facility] 550 [place] [address] Referring Physician Pediatric Surgery 12/09/19 Maru Villagomez, OTILIO Registered Nurse 12/10/19 Ang Slade MD [address] [place] [address] 65236 Urology 04/24/20 Carlos Joyner MD [address] [place] [address] 35856 Assigned Surgical Provider 12/24/20 Ang Slade MD [address] [address] Urology 12/18/22 Lakshmi Wilhelm PA-C [address] [place] [address] 47665 Physician Reel Assembler Urology 02/03/23 [place] [address] [place] [address] Assigned PCP 02/06/23 Alissa Perez PA-C [address] [place] [address] 15238 Physician Reel Assembler Surgery 09/04/23 Lakshmi Wilhelm PA-C [address] [place] [address] 63796 Physician Reel Assembler Urology 09/16/23 Aidee Valero PA-C [address] [place] [address] 13462 Assigned Musculoskeletal Provider 04/17/24 Tanisha Marlow 4120 [facility] [address] 03/30/24 documented as of this encounter
--- OUTSIDE RECORDS SUMMARY | 2024-06-10 20:07 | XMS_ITS | Encounter Summary ---
Author Organization [place] Address [address] [place] [address] Care Team Providers Care Tuft Machine Operator Name Role Phone Carlos Joyner MD Unavailable [phone] Jadon Murray MD Unavailable [phone] Maru Villagomez RN Unavailable Unavailable Ang Slade MD Unavailable +[phone] Carlos Joyner MD Unavailable +[phone] Ang Slade MD Unavailable [phone] Lakshmi Wilhelm-C Unavailable +[phone] Heladio Willoughby MD Primary Care Provider [phone] Heladio Willoughby MD Unavailable Alissa Perez PA-C Unavailable [phone] Lakshmi Wilhelm-C Unavailable [phone] Aidee Valero PA-C Unavailable [phone] Encounter Details Date Type Department Care Team (Late st Contact Info) Description 09/08/2023 [facility] [address] [address] Bhavna Ferris Social History Tobacco [...] st Contact Info) Description 06/15/2024 9:30 AM DIGITAL ANALYST Office Visit [address] [address] Xu Prince MD [address] [place] [address] 352814 06/15/2024 2:30 PM DIGITAL ANALYST Office Visit [facility] [address] [place] [address] Andreea Cruz PA-C [address] [place], [place] 4656868 07/21/2024 4:00 PM DIGITAL ANALYST Office Visit [facility] [place] [address] [address] [phone] [place] [address] [address] [place] [id number] documented as of this encounter Visit Diagnoses Not on filedocumented in this encounter Care Teams Tuft Machine Operator Relationship Specialty [place] [address] [address] [phone] PCP - General 03/05/23 Carlos Joyner MD [address] [place] [address] 53847 Urology 12/09/19 Jadon Murray MD [facility] [address] [facility] 550 [place] [address] Referring Physician Pediatric Surgery 12/09/19 Maru Villagomez, OTILIO Registered Nurse 12/10/19 Ang Slade MD [address] [place] [address] 8[address]56 Urology 04/24/20 Carlos Joyner MD [address] [place] [address] 00985 Assigned Surgical Provider 12/24/20 Ang Slade MD [address] [address] Urology 12/18/22 Lakshmi Wilhelm PA-C [address] [place] [address] 78929 Physician Manager Clinical Research Urology 02/03/23 [place] [address] [place] [address] Assigned PCP 02/06/23 Alissa Perez PA-C [address] [place] [address] 03546 Physician Manager Clinical Research Surgery 09/04/23 Lakshmi Wilhelm PA-C [address] [place] [address] 79249 Physician Manager Clinical Research Urology 09/16/23 Aidee Valero PA-C [address] [place] [address] 94334 Assigned Musculoskeletal Provider 04/17/24 Tanisha Marlow 4120 [facility] [address] 03/30/24 documented as of this encounter
--- OUTSIDE RECORDS SUMMARY | 2024-06-10 20:07 | XMS_ITS | Encounter Summary ---
Author Organization [place] Address [address] [place] [address] Care Team Providers Care Toppiece Cutter Name Role Phone Carlos Joyner MD Unavailable [phone] Jadon Murray MD Unavailable [phone] Maru Villagomez RN Unavailable Unavailable Ang Slade MD Unavailable +[phone] Carlos Joyner MD Unavailable +[phone] Ang Slade MD Unavailable +[phone] Lakshmi Wilhelm PA-C Unavailable +[phone] Heladio Willoughby MD Primary Care Provider [phone] Heladio Willoughby MD Unavailable Alissa Perez PA-C Unavailable [phone] Lakshmi Wilhelm PA-C Unavailable [phone] Aidee Valero PA-C Unavailable [phone] Encounter Details Date Type Department Care Team (Late st Contact Info) Description 02/13/2024 [facility] U[facility] Clinic [address]th [place] [address] Carlos Joyner MD [address] [place] [address] Social History Tobacco Use Types Packs/Day [...] Contact Info) Description 06/15/2024 9:30 AM ASSISTANT NURSE MANAGER Office Visit [address] [address] Xu Prince MD [address] [place] [address] 06/15/2024 2:30 PM ASSISTANT NURSE MANAGER Office Visit [facility] [address] [place] [address] Andreea Cruz, PAEarlC [address] [facility] [place], [place] 9392868 07/21/2024 4:00 PM ASSISTANT NURSE MANAGER Office Visit [facility] [address] [facility] [place] [phone] [place] [address] [address] [place], [place] 8405768 documented as of this encounter Visit Diagnoses Not on filedocumented in this encounter Care Teams Toppiece Cutter Relationship Specialty Start [place] [address] [facility] [place], [place] 7685768 PCP - General 03/05/23 Carlos Joyner MD [address] [place] [address] 388855 Urology 12/09/19 Jadon Murray MD [facility] [address] [facility] 550 [place] [address] Referring Physician Pediatric Surgery 12/09/19 Maru Villagomez, OTILIO Registered Nurse 12/10/19 Ang Slade MD [address] [place] [address] 62226 Urology 04/24/20 Carlos Joyner MD [address] [place] [address] 287005 Assigned Surgical Provider 12/24/20 Ang Slade MD [address] [place] [address] 32436 Urology 12/18/22 Lakshmi Wilhelm PA-C [address] [place] [address] 001955 Physician Firmware Manager Urology 02/03/23 [place] [address] [facility] [place] [address] Assigned PCP 02/06/23 Alissa Perez PA-C [address] [place] [address] 87355 Physician Firmware Manager Surgery 09/04/23 Lakshmi Wilhelm PA-C [address] [place] [address] 68061 Physician Firmware Manager Urology 09/16/23 Aidee Valero PA-C [address] [place] [address] 618385 Assigned Musculoskeletal Provider 04/17/24 Tanisha Marlow 4120 [facility] [address] 03/30/24 documented as of this encounter
--- OUTSIDE RECORDS SUMMARY | 2024-06-10 20:07 | XMS_ITS | Encounter Summary ---
Author Organization [place] Address [address] [place] [address]18 Care Team Providers Care Accounting Clerks Supervisor Name Role Phone Carlos Joyner MD Unavailable [phone] Jadon Murray MD Unavailable [phone] Maru Villagomez RN Unavailable Unavailable Ang Slade MD Unavailable +[phone] Carlos Joyner MD Unavailable +[phone] Ang Slade MD Unavailable +[phone] Lakshmi Wilhelm PA-C Unavailable [phone] Heladio Willoughby MD Primary Care Provider [phone] Heladio Willoughby MD Unavailable Alissa Perez PA-C Unavailable [phone] Lakshmi Wilhelm-C Unavailable [phone] Aidee Valero PA-C Unavailable [phone] Encounter Details Date Type Department Care Team (Late st Contact Info) Description 08/18/2023 [facility] Advice [facility] [address] [place] [address] Analisa Conner Social History Tobacco Use [...] st Contact Info) Description 06/15/2024 9:30 AM CHAUFFEUR Office Visit [address] [address] Xu Prince MD [address] [place] [address] 178664 06/15/2024 2:30 PM CHAUFFEUR Office Visit [facility] [address] [place] [address] Andreea Cruz PA-C [address] [place], [place] 7696068 07/21/2024 4:00 PM CHAUFFEUR [facility] [address] [address] [phone] [place] [address] [address] [phone] documented as of this encounter Visit Diagnoses Not on filedocumented in this encounter Care Teams Accounting Clerks Supervisor Relationship Specialty [place] [address] [address] [phone] PCP - General 03/05/23 Carlos Joyner MD [address] [place] [address] 15236 Urology 12/09/19 Jadon Murray MD [facility] [address] [address] Referring Physician Pediatric Surgery 12/09/19 Maru Villagomez, OTILIO Registered Nurse 12/10/19 Ang Slade MD [address] [place] [address] 14826 Urology 04/24/20 Carlos Joyner MD [address] [place] [address] 52385 Assigned Surgical Provider 12/24/20 Ang Slade MD [address] [address] Urology 12/18/22 Lakshmi Wilhelm PA-C [address] [place] [address] 443245 Physician Strategy Planning Consultant Urology 02/03/23 [place] [address] [place] [address] Assigned PCP 02/06/23 Alissa Perez PA-C [address] [place] [address] 608405 Physician Strategy Planning Consultant Surgery 09/04/23 Lakshmi Wilhelm PA-C [address] [place] [address] 363305 Physician Strategy Planning Consultant Urology 09/16/23 Aidee Valero PA-C [address] [place] [address] 135985 Assigned Musculoskeletal Provider 04/17/24 Tanisha Marlow 4120 [facility] [address] 03/30/24 documented as of this encounter
--- OUTSIDE RECORDS SUMMARY | 2024-06-10 20:07 | XMS_ITS | Encounter Summary ---
Author Organization [place] Address [address] [place] [address] Care Team Providers Care Gimp Buttonhole Machine Operator Name Role Phone Carlos Joyner MD Unavailable [phone] Jadon Murray MD Unavailable +[phone] Maru Villagomez RN Unavailable Unavailable Ang Slade MD Unavailable +[phone] Carlos Joyner MD Unavailable +[phone] Ang Slade MD Unavailable +[phone] Lakshmi Wilhelm PA-C Unavailable Heladio Willoughby MD Primary Care Provider [phone] Heladio Willoughby MD Unavailable Alissa Perez PA-C Unavailable [phone] Lakshmi Wilhelm PA-C Unavailable +[phone] Aidee Valero PA-C Unavailable [phone] Encounter Details Date Type Department Care Team (Late st Contact Info) Description 09/18/2023 [facility] [address] [place] [address] Carlos Joyner MD [address] [place] [address] Social History Tobacco Use Types Packs/Day [...] st Contact Info) Description 06/15/2024 9:30 AM ROUTE SALESMAN AND DRIVER Office Visit [address] [address] Xu Prince MD [address] [place] [address] 06/15/2024 2:30 PM ROUTE SALESMAN AND DRIVER Office Visit [facility] [address] [place] [address] Andreea Cruz, PAEarlC [address] [facility] [place] 1629068 07/21/2024 4:00 PM ROUTE SALESMAN AND DRIVER Office Visit [facility] [address] [facility] [place] [phone] [place] [address] [address] [place], [place] 8221768 documented as of this encounter Visit Diagnoses Not on filedocumented in this encounter Care Teams Gimp Buttonhole Machine Operator Relationship Specialty [place] [address] [facility] [place], [place] 9149468 PCP - General 03/05/23 Carlos Joyner MD [address] [place] [address] 315085 Urology 12/09/19 Jadon Murray MD [facility] 2530 [facility] 550 [place] [address] Referring Physician Pediatric Surgery 12/09/19 Maru Villagomez, OTILIO Registered Nurse 12/10/19 Ang Slade MD [address] [place] [address]12 Urology 04/24/20 Carlos Joyner MD [address] [place] [address] 639565 Assigned Surgical Provider 12/24/20 Ang Slade MD [address] [place] [address] 53420 Urology 12/18/22 Lakshmi Wilhelm PA-C [address] [place] [address] 839235 Physician Down Filler Urology 02/03/23 [place] [address] [facility] [place] [place] [address] Assigned PCP 02/06/23 Alissa Perez PA-C [address] [place] [address] 25362 Physician Down Filler Surgery 09/04/23 Lakshmi Wilhelm PA-C [address] [place] [address] 52653 Physician Down Filler Urology 09/16/23 Aidee Valero PA-C [address] [place] [address] 000875 Assigned Musculoskeletal Provider 04/17/24 Tanisha Marlow 4120 [facility] [address] 03/30/24 documented as of this encounter
--- OUTSIDE RECORDS SUMMARY | 2024-06-10 20:07 | XMS_ITS | Encounter Summary ---
Author Organization [place] Address [address] [place] [address]. [place] [address] Care Team Providers Care Electrolog Operator Name Role Phone Carlos Joyner MD Unavailable [phone] Jadon Murray MD Unavailable [phone] Maru Villagomez RN Unavailable Unavailable Ang Slade MD Unavailable +[phone] Carlos Joyner MD Unavailable +[phone] Ang Slade MD Unavailable +[phone] Lakshmi Wilhelm-C Unavailable [phone] Heladio Willoughby MD Primary Care Provider [phone] Heladio Willoughby MD Unavailable Alissa Perez PA-C Unavailable [phone] Lakshmi Wilhelm-C Unavailable [phone] Aidee Valero PA-C Unavailable [phone] Reason for Visit * Reason Onset Date Comments Forms 02/06/2024 [facility] ecial Education Cooperative - Medication Authorization Form Encounter Details Date Type Department Care Team (Late st Contact Info) Description 02/06/2024 [facility] [address] [place] [address] [place] [address] [place] [address] Forms ([facility] Education Welfare Administrator... Social History Tobacco Use Types Packs/Day Years [...] Authorization Form Who is the form from? [facility] [employer] [facility] (if other please explain) Where did/will the form come from? form was sent via [employer] When is form/letter needed by: [facility] How would you like the form/letter returned: [employer] Printed forms and placed in provider's basket for review and signature Kasia Gutierrez Lead Electroslag Welding Machine Operator [facility] documented in this encounter Plan of Treatment Upcoming Encounters Date Type Department Care Team (Late st Contact Info) Description 06/15/2024 9:30 AM CLAIM AUDITOR Office Visit [facility] [address] [place] [phone] Xu Prince MD [address] [place], [place] [address]E [address] 345164 06/15/2024 2:30 PM CLAIM AUDITOR [facility] [address] [place] [phone] Andreea Cruz PA-C [address] [place] [address] 07/21/2024 4:00 PM CLAIM AUDITOR [facility] [address] [place] [address] [place] [address] [place], [place] 2647668 documented as of this encounter Visit Diagnoses Not on filedocumented in this encounter Care Teams Electrolog Operator Relationship Specialty Start [place] [address] [place], [place] [phone] PCP - General 03/05/23 Carlos Joyner MD 909 [place], [place] 231945 Urology 12/09/19 Jadon Murray MD [facility] 2530 [facility] 550 [place] [address] Referring Physician Pediatric Surgery 12/09/19 Maru Villagomez, RN Registered Nurse 12/10/19 Ang Slade MD [address] [place] [address] 394 [place] [address] Urology 04/24/20 Carlos Joyner MD [address] [place] [address] 998375 Assigned Surgical Provider 12/24/20 Ang Slade MD [address] [place] [address] 32930 MD Urology 12/18/22 Lakshmi Wilhelm PA-C [address] [place] [address] 546985 Physician Loader Operator/Ground Leader Urology 02/03/23 [place] [address] [place] [address] Assigned PCP 02/06/23 Alissa Perez PA-C [address] [place] [address] 89633 Physician Loader Operator/Ground Leader Surgery 09/04/23 Lakshmi Wilhelm PA-C [address] [place] [address] 983535 Physician Loader Operator/Ground Leader Urology 09/16/23 Aidee Valero PA-C [address] [place] [address] 581325 Assigned Musculoskeletal Provider 04/17/24 Tanisha Marlow [address] [facility] [place] [address] 03/30/24 documented as of this encounter
--- OUTSIDE RECORDS SUMMARY | 2024-06-10 20:07 | XMS_ITS | Encounter Summary ---
Author Organization [place] Address [address] [place] [address] 22985 Care Team Providers Care Monitor And Storage Bin Tender Name Role Phone Carlos Joyner MD Unavailable [phone] Jadon Murray MD Unavailable +[phone] Maru Villagomez RN Unavailable Unavailable Ang Slade MD Unavailable +[phone] Carlos Joyner MD Unavailable +[phone] Ang Slade MD Unavailable +[phone] Lakshmi Wilhelm-C Unavailable +[phone] Heladio Wilolughby MD Primary Care Provider [phone] Heladio Willoughby MD Unavailable Alissa Perez PA-C Unavailable [phone] Lakshmi Wilhelm-C Unavailable +[phone] Aidee Valero PA-C Unavailable +[phone] Encounter Details Date Type Department Care Team (Late st Contact Info) Description 07/01/2023 [facility] Medical Advice [facility] [address] [place] [address] Joao Arceo MA Social History Tobacco [...] st Contact Info) Description 06/15/2024 9:30 AM HUMAN RESOURCES BENEFITS ASSISTANT Office Visit [address] [address] Xu Prince MD [address] [address] 166494 06/15/2024 2:30 PM HUMAN RESOURCES BENEFITS ASSISTANT Office Visit [facility] [address] [place] [phone] Andreea Cruz PAYuki [address] [place], [place] 5402268 07/21/2024 4:00 PM HUMAN RESOURCES BENEFITS ASSISTANT Office [facility] [address] [phone] [place] [address] [place] [address] documented as of this encounter Visit Diagnoses Not on filedocumented in this encounter Care Teams Monitor And Storage Bin Tender Relationship Specialty [place] [address] [address] [id number] PCP - General 03/05/23 Carlos Joyner MD [address] [place] [address]306 Urology 12/09/19 Jadon Murray MD [facility] 2530 [facility] 550 [place] [address] Referring Physician Pediatric Surgery 12/09/19 Maru Villagomez, OTILIO Registered Nurse 12/10/19 Ang Slade MD [address] [place] [address] 903995 Urology 04/24/20 Carlos Joyner MD [address] [place] [address] Assigned Surgical Provider 12/24/20 Ang Slade MD [address] [address] Urology 12/18/22 Lakshmi Wilhelm PA-C 909 [place] [address] Physician Titrator Urology 02/03/23 [place] [address] [place] [address] Assigned PCP 02/06/23 Alissa Perez PA-C [address] [place] [address] Physician Titrator Surgery 09/04/23 Lakshmi Wilhelm PA-C [address] [place] [address]47 Physician Titrator Urology 09/16/23 Aidee Valero PA-C [address] [place] [address] Assigned Musculoskeletal Provider 04/17/24 Tanisha Marlow 4120 [facility] [address] 03/30/24 documented as of this encounter
--- OUTSIDE RECORDS SUMMARY | 2024-06-10 20:08 | XMS_ITS | Encounter Summary ---
Author Organization [facility] Address [address] [place] [address]643 Care Team Providers Care Engineering Patternmaker Name Role Phone Carlos Joyner MD Unavailable [phone] Jadon Murray MD Unavailable + [phone] Maru Villagomez RN Unavailable Unavailable Ignacia Duran MD Primary Care Provider [phone] Ang Slade MD Unavailable +[phone] Carlos Joyner MD Unavailable +[phone] Ang Slade MD Unavailable +[phone] Lakshmi Wilhelm-C Unavailable +[phone] Heladio Willoughby MD Primary Care Provider [phone] Heladio Willoughby MD Unavailable Alissa Perez PA-C Unavailable [phone] Lakshmi Wilhelm-C Unavailable +[phone] Aidee Valero PA-C Unavailable +[phone] Encounter Details Date Type Department Care Team (Late st Contact Info) Description 01/06/2023 [facility] Medical [facility] [address] [address] Lisette Mariee Social History Tobacco [...] st Contact Info) Description 06/15/2024 9:30 AM CREW SCHEDULER Office Visit [facility] [address] [place] [phone] Xu Prince MD [address] [place] [address] 935724 06/15/2024 2:30 PM CREW SCHEDULER Office Visit [facility] [address] [place] [address] Andreea Cruz PA-C [address] [place] [address] 07/21/2024 4:00 PM CREW SCHEDULER Office Visit [facility] [address] [place] [address] [place] [address] [place], [place] [phone] documented as of this encounter Visit Diagnoses Not on filedocumented in this encounter Additional Health Concerns Infection Onset Date Last Indicated Resolved Time MRSA Comment:Added from external infection. Pt has had Staph infections but never MRSA from Care everywhere chart review. Removing MRSA 02.06.23 06/17/2019 02/06/2023 9:41 AM C DT documented as of this encounter Care Teams Engineering Patternmaker Relationship Specialty Start Date End Date Ignacia Duran MD PCP - General Pediatrics 01/20/20 03/04/23 [place] [address] [place] [address] PCP - General 03/05/23 Carlos Joyner MD [address] [place] [address] 556[address] Urology 12/09/19 Jadon Murray MD [facility] [address] [address] Referring Physician Pediatric Surgery 12/09/19 Maru Villagomez, OTILIO Registered Nurse 12/10/19 Ang Slade MD [address] [place] [address] 10060 Urology 04/24/20 Carlos Joyner MD [address] [place] [address]1991 Assigned Surgical Provider 12/24/20 Ang Slade MD [address] [place] [address] 23096 Urology 12/18/22 Lakshmi Wilhelm PA-C [address] [place] [address] 31199 Physician Principal Technologist Urology 02/03/23 [place] [address] [place] [address] Assigned PCP 02/06/23 Alissa Perez PA-C [address] [place] [address] 470515 Physician Principal Technologist Surgery 09/04/23 Lakshmi Wilhelm PA-C [address] [place] [address] [phone] Physician Principal Technologist Urology 09/16/23 Aidee Valero PA-C [address] [place] [address] [id number] Assigned Musculoskeletal Provider 04/17/24 Tanisha Marlow 4120 [facility] [address] 03/30/24 documented as of this encounter
--- OUTSIDE RECORDS SUMMARY | 2024-06-10 20:08 | XMS_ITS | Encounter Summary ---
Author Organization [place] Address [address] [place] [address]76 Care Team Providers Care Component Overhaul Operator Name Role Phone Carlos Joyner MD Unavailable [phone] Jadon Murray MD Unavailable + [phone] Maru Villagomez RN Unavailable Unavailable Ignacia Duran MD Primary Care Provider [phone] Ang Slade MD Unavailable +[phone] Carlos Joyner MD Unavailable [phone] Ang Slade MD Unavailable +[phone] Lakshmi Wilhelm-C Unavailable +[phone] Heladio Willoughby MD Primary Care Provider [phone] Heladio Willoughby MD Unavailable Alissa Perez PA-C Unavailable [phone] Lakshmi Wilhelm-C Unavailable [phone] Aidee Valero PA-C Unavailable [phone] Encounter Details Date Type Department Care Team (Late st Contact Info) Description 01/07/2023 [facility] [address] [place] [address] Analisa Palacio, OTILIO Social History [...] st Contact Info) Description 06/15/2024 9:30 AM COMMUNITY PLACEMENT WORKER Office Visit [facility] [address] [place] [phone] Xu Prince MD [address] [place] [address] [id number] 06/15/2024 2:30 PM COMMUNITY PLACEMENT WORKER Office Visit [facility] [address] [place] [address] Andreea Cruz PA-C [address] [place] [address] 07/21/2024 4:00 PM COMMUNITY PLACEMENT WORKER Office Visit [facility] [address] [place] [address] [place] [address] [place] [address] documented as of this encounter Visit Diagnoses Not on filedocumented in this encounter Additional Health Concerns Infection Onset Date Last Indicated Resolved Time MRSA Comment:Added from external infection. Pt has had Staph infections but never MRSA from Care everywhere chart review. Removing MRSA 02.06.23 06/17/2019 02/06/2023 9:41 AM C DT documented as of this encounter Care Teams Component Overhaul Operator Relationship Specialty Start Date End Date Ignacia Duran MD PCP - General Pediatrics 01/20/20 03/04/23 [place] [address] [place] [address] PCP - General 03/05/23 Carlos Joyner MD [address] [place] [address] Urology 12/09/19 Jadon Murray MD [facility] [address] [address] Referring Physician Pediatric Surgery 12/09/19 Maru Villagomez, OTILIO Registered Nurse 12/10/19 Ang Slade MD [address] [place] [address] Urology 04/24/20 Carlos Joyner MD [address] [place] [address]14[address] Assigned Surgical Provider 12/24/20 Ang Slade MD [address] [place] [address] 830[address] Urology 12/18/22 Lakshmi Wilhelm PA-C [address] [place] [address]266 Physician Philosophy Specialist Urology 02/03/23 [place] [address] [place] [address] Assigned PCP 02/06/23 Alissa Perez PA-C [address] [place] [address] 927565 Physician Philosophy Specialist Surgery 09/04/23 Lakshmi Wilhelm PA-C [address] [place] [address] [phone] Physician Philosophy Specialist Urology 09/16/23 Aidee Valero PA-C [address] [place] [address] [id number] Assigned Musculoskeletal Provider 04/17/24 Tanisha Marlow 4120 [facility] [address] 03/30/24 documented as of this encounter
--- OUTSIDE RECORDS SUMMARY | 2024-06-10 20:08 | XMS_ITS | Encounter Summary ---
Author Organization [place] Address 2450 [facility] [place] [address] Care Team Providers Care Doper Name Role Phone Carlos Joyner MD Unavailable [phone] Jadon Murray MD Unavailable [phone] Maru Villagomez RN Unavailable Unavailable Ang Slade MD Unavailable +[phone] Carlos Joyner MD Unavailable +[phone] Ang Slade MD Unavailable +[phone] Lakshmi Wilhelm PA-C Unavailable +[phone] Heladio Willoughby MD Primary Care Provider [phone] Heladio Willoughby MD Unavailable Alissa Perez PA-C Unavailable [phone] Lakshmi Wilhelm PA-C Unavailable +[phone] Aidee Valero PA-C Unavailable +[phone] Encounter Details Date Type Department Care Team (Late st Contact Info) Description 03/27/2023 [facility] Medical Advice [facility] PREOP/PHASE II 2450 [place] [phone] Lisette Salinas RN Social History Tobacco Use [...] in an overnight penitentiary, or couch-surfing.) Yes 02/26/2023 Are you worried [...] Contact Info) Description 06/15/2024 9:30 AM SUPERVISOR MOLDING Office Visit [address] [address] Xu Prince MD [address] [place] [address] 043904 06/15/2024 2:30 PM SUPERVISOR MOLDING Office Visit [address] [address] Andreea Cruz PA-C [address] [place] [address] 07/21/2024 4:00 PM SUPERVISOR MOLDING Office Visit [facility] [address] [place] [phone] [place] [address] [facility] [place], [place] [phone] documented as of this encounter Visit Diagnoses Not on filedocumented in this encounter Care Teams Doper Relationship Specialty [place] [address] [facility] [place], [place] [phone] PCP - General 03/05/23 Calros Joyner MD [address] [place] [address] Urology 12/09/19 Jadon Murray MD [facility] 2530 [facility] 550 [place] [address] Referring Physician Pediatric Surgery 12/09/19 Maru Villagomez, OTILIO Registered Nurse 12/10/19 Ang Slade MD [address] [place] [address] 338525 Urology 04/24/20 Carlos Joyner MD [address] [place] [address]679 Assigned Surgical Provider 12/24/20 Ang Slade MD [address] [place] [address] 60833 Urology 12/18/22 Lakshmi Wilhelm PA-C [address] [place] [address] 18168 Physician Metallurgical Inspector Urology 02/03/23 [place] [address] [place] [address] Assigned PCP 02/06/23 Alissa Perez PA-C [address] [place] [address] Physician Metallurgical Inspector Surgery 09/04/23 Lakshmi Wilhelm PA-C [address] [place] [address] Physician Metallurgical Inspector Urology 09/16/23 Aidee Valero PA-C [address] [place] [address] 236215 Assigned Musculoskeletal Provider 04/17/24 Tanisha Marlow 4120 [facility] [address] 03/30/24 documented as of this encounter
--- OUTSIDE RECORDS SUMMARY | 2024-06-10 20:08 | XMS_ITS | Encounter Summary ---
Author Organization [facility] Address [address] [place] [address]. [place] [address] Care Team Providers Care Hospitality Workers Name Role Phone Carlos Joyner MD Unavailable [phone] Jadon Murray MD Unavailable +[phone] Maru Villagomez RN Unavailable Unavailable Ang Slade MD Unavailable +[phone] Carlos Joyner MD Unavailable +[phone] Ang Slade MD Unavailable +[phone] Lakshmi Wilhelm PA-C Unavailable +[phone] Heladio Willoughby MD Primary Care Provider [phone] Heladio Willoughby MD Unavailable Alissa Perez PA-C Unavailable [phone] Lakshmi Wilhelm PA-C Unavailable [phone] Aidee Valero PA-C Unavailable [phone] Encounter Details Date Type Department Care Team (Late st Contact Info) Description 04/08/2023 [facility] Medical Advice [facility] [address] 4th [place] [address] Rosita Velasco, RN Social History [...] an overnight care home, or couch-surfing.) Yes 04/11/2023 Are you worried [...] st Contact Info) Description 06/15/2024 9:30 AM STEWARD/STEWARDESS TOURIST CLASS Office Visit [address] [address] Xu Prince MD [address] [place] [address] 757924 06/15/2024 2:30 PM STEWARD/STEWARDESS TOURIST CLASS Office Visit [facility] [address] [place] [phone] Andreea Cruz PA-C [address] [place], [place] 7248768 07/21/2024 4:00 PM STEWARD/STEWARDESS TOURIST CLASS Office Visit [facility] [address] [address] [address] [phone] [place] [address] [address] [place] [phone] documented as of this encounter Visit Diagnoses Not on filedocumented in this encounter Care Teams Hospitality Workers Relationship Specialty [place] [address] [address] [phone] PCP - General 03/05/23 Carlos Joyner MD [address] [place] [address]409 Urology 12/09/19 Jadon Murray MD [facility] 2530 [facility] 550 [place] [address] Referring Physician Pediatric Surgery 12/09/19 Maru Villagomez, OTILIO Registered Nurse 12/10/19 Ang Slade MD [address] [place] [address] Urology 04/24/20 Carlos Joyner MD [address] [place] [address] 14161 Assigned Surgical Provider 12/24/20 Ang Slade MD [address] [address] Urology 12/18/22 Lakshmi Wilhelm PA-C [address] [place] [address]3960 Physician Department Manager Urology 02/03/23 [place] [address] [place] [address] Assigned PCP 02/06/23 Alissa Perez PA-C [address] [place] [address]63 Physician Department Manager Surgery 09/04/23 Lakshmi Wilhelm PA-C [address] [place] [address]006 Physician Department Manager Urology 09/16/23 Aidee Valero PA-C [address] [place] [address] Assigned Musculoskeletal Provider 04/17/24 Tanisha Marlow 4120 [facility] [address] 03/30/24 documented as of this encounter
--- OUTSIDE RECORDS SUMMARY | 2024-06-10 20:08 | XMS_ITS | Encounter Summary ---
Author Organization [place] Address [address] [place] [address] Care Team Providers Care Rental Clerk Tool And Equipment Name Role Phone Carlos Joyner MD Unavailable [phone] Jadon Murray MD Unavailable + [phone] Maru Villagomez RN Unavailable Unavailable Ignacia Duran MD Primary Care Provider [phone] Ang Slade MD Unavailable +[phone] Carlos Joyner MD Unavailable [phone] Ang Slade MD Unavailable +[phone] Lakshmi Wilhelm-C Unavailable +[phone] Heladio Willoughby MD Primary Care Provider [phone] Heladio Willoughby MD Unavailable Alissa Perez PA-C Unavailable [phone] Lakshmi Wilhelm-C Unavailable +[phone] Aidee Valero PA-C Unavailable [phone] Encounter Details Date Type Department Care Team (Late st Contact Info) Description 12/30/2022 [facility] [address] [place] [address] Analisa Palacio, OTILIO Social History [...] Contact Info) Description 06/15/2024 9:30 AM SALES ASSOC Office Visit [facility] [address] [place] [phone] Xu Prince MD [address] [place] [address] [phone] 06/15/2024 2:30 PM SALES ASSOC Office Visit [facility] [address] [place] [address] Andreea Cruz PA-C [address] [place] [address] 07/21/2024 4:00 PM SALES ASSOC Office Visit [facility] [address] [place] [address] [place] [address] [place] [address] documented as of this encounter Visit Diagnoses Not on filedocumented in this encounter Additional Health Concerns Infection Onset Date Last Indicated Resolved Time MRSA Comment:Added from external infection. Pt has had Staph infections but never MRSA from Care everywhere chart review. Removing MRSA 02.06.23 06/17/2019 02/06/2023 9:41 AM C DT documented as of this encounter Care Teams Rental Clerk Tool And Equipment Relationship Specialty Start Date End Date Ignacia Duran MD PCP - General Pediatrics 01/20/20 03/04/23 [place] [address] [place] [address] PCP - General 03/05/23 Carlos Joyner MD [address] [place] [address]28 Urology 12/09/19 Jadon Murray MD [facility] [address] [address] Referring Physician Pediatric Surgery 12/09/19 Maru Villagomez, OTILIO Registered Nurse 12/10/19 Ang Slade MD [address] [place] [address] 13672 Urology 04/24/20 Carlos Joyner MD [address] [place] [address] 19902 Assigned Surgical Provider 12/24/20 Ang Slade MD [address] [place] [address] 22595 Urology 12/18/22 Lakshmi Wilhelm PA-C [address] [place] [address] 39543 Physician Business Mail Entry Clerk Urology 02/03/23 [place] [address] [place] [address] Assigned PCP 02/06/23 Alissa Perez PA-C [address] [place] [address] 468605 Physician Business Mail Entry Clerk Surgery 09/04/23 Lakshmi Wilhelm PA-C [address] [place] [address] [phone] Physician Business Mail Entry Clerk Urology 09/16/23 Aidee Valero PA-C [address] [place] [address] [id number] Assigned Musculoskeletal Provider 04/17/24 Tanisha Marlow 4120 [facility] [address] 03/30/24 documented as of this encounter
--- OUTSIDE RECORDS SUMMARY | 2024-06-10 20:09 | XMS_ITS | Encounter Summary ---
Author Organization [place] Address [address] [place] [address] Care Team Providers Care Manager Surgical Name Role Phone Carlos Joyner MD Unavailable [phone] Jadon Murray MD Unavailable [phone] Maru Villagomez RN Unavailable Unavailable Ignacia Duran MD Primary Care Provider [phone] Ang Slade MD Unavailable +[phone] Carlos Joyner MD Unavailable +[phone] Annalise Orta PA-C Unavailable Ang Slade MD Unavailable +[phone] Lakshmi Wilhelm-C Unavailable [phone] Heladio Willoughby MD Primary Care Provider [phone] Heladio Willoughby MD Unavailable Alissa Perez PA-C Unavailable [phone] Lakshmi Wilhelm PA-C Unavailable Aidee Valero PA-C Unavailable [phone] Encounter Details Date Type Department Care Team (Late st Contact Info) Description 10/01/2021 [facility] [address] [place] [address] Carlos Joyner MD [address] [place] [address] Social History Tobacco Use Types Packs/Day [...] st Contact Info) Description 06/15/2024 9:30 AM TEENAGE BABYSITTER Office Visit [facility] 606 [facility] [place] [phone] Xu Prince MD [address] [place] [address] 234954 06/15/2024 2:30 PM TEENAGE BABYSITTER Office Visit [facility] [address] [place] [address] Andreea Cruz PA-C [address] [place] [address] 07/21/2024 4:00 PM TEENAGE BABYSITTER Office Visit [facility] [address] [place] [address] [place] [address] [place], [place] [phone] documented as of this encounter Visit Diagnoses Not on filedocumented in this encounter Additional Health Concerns Infection Onset Date Last Indicated Resolved Time MRSA Comment:Added from external infection. Pt has had Staph infections but never MRSA from Care everywhere chart review. Removing MRSA 02.06.23 06/17/2019 02/06/2023 9:41 AM C DT documented as of this encounter Care Teams Manager Surgical Relationship Specialty Start Date End Date Ignacia Duran MD PCP - General Pediatrics 01/20/20 03/04/23 [place] [address] [facility] [place] [address] PCP - General 03/05/23 Carlos Joyner MD [address] [place] [address] 9[address]80 Urology 12/09/19 Jadon Murray MD [facility] [address] [address] Referring Physician Pediatric Surgery 12/09/19 Maru Villagomez, OTILIO Registered Nurse 12/10/19 Ang Slade MD [address] [place] [address] 29400 Urology 04/24/20 Carlos Joyner MD [address] [place] [address] 89786 Assigned Surgical Provider 12/24/20 Annalise Orta PA-C 5200 [place] [address] Assigned Cancer Care Provider 05/13/21 11/01/22 Ang Slade MD [address] [place] [address]107 Urology 12/18/22 Lakshmi Wilhelm PA-C [address] [place] [address] 616135 Physician Biometrics Head Urology 02/03/23 [place] [address] [place] [address] Assigned PCP 02/06/23 Alissa Perez PA-C [address] [place] [address] 559575 Physician Biometrics Head Surgery 09/04/23 Lakshmi Wilhelm PA-C [address] [place] [address] 618275 Physician Biometrics Head Urology 09/16/23 Aidee Valero PA-C [address] [place] [address] [phone] Assigned Musculoskeletal Provider 04/17/24 Tanisha Marlow 4120 [facility] [address] 03/30/24 documented as of this encounter
--- OUTSIDE RECORDS SUMMARY | 2024-06-10 20:09 | XMS_ITS | Encounter Summary ---
Author Organization [place] Address [address] [place] [address] Care Team Providers Care Drying Oven Attendant Name Role Phone Carlos Joyner MD Unavailable [phone] Jadon Murray MD Unavailable [phone] Maru Villagomez RN Unavailable Unavailable Ignacia Duran MD Primary Care Provider Ang Slade MD Unavailable +[phone] Carlos Joyner MD Unavailable +[phone] Annalise Orta PA-C Unavailable +[phone] Ang Slade MD Unavailable +[phone] Lakshmi Wilhelm-C Unavailable +[phone] Heladio Willoughby MD Primary Care Provider [phone] Heladio Willoughby MD Unavailable Alissa Perez PA-C Unavailable [phone] Lakshmi Wilhelm PA-C Unavailable [phone] Aidee Valero PA-C Unavailable +[phone] Encounter Details Date Type Department Care Team (Late st Contact Info) Description 11/14/2021 [facility] [address] [place] [address] Analisa Palacio, RN Social History [...] st Contact Info) Description 06/15/2024 9:[address] REPORTER Office Visit [facility] [address] [place] [address] [phone] Xu Prince MD [address] [place] [address] [id number] 06/15/2024 2:[address] REPORTER Office Visit [facility] [address] [place] [address] Andreea Cruz PA-C [address] [place] [address] 07/21/2024 4:[address] REPORTER Office Visit [facility] [address] [place] [address] [place] [address] [place], [place] [phone] documented as of this encounter Visit Diagnoses Not on filedocumented in this encounter Additional Health Concerns Infection Onset Date Last Indicated Resolved Time MRSA Comment:Added from external infection. Pt has had Staph infections but never MRSA from Care everywhere chart review. Removing MRSA 9.14.23 06/17/2019 02/06/2023 9:41 AM C DT documented as of this encounter Care Teams Drying Oven Attendant Relationship Specialty Start Date End Date Ignacia Duran MD PCP - General Pediatrics 01/20/20 03/04/23 [place] [address] [facility] [place] [address] PCP - General 03/05/23 Carlos Joyner MD [address] [place] [address] 26187 Urology 12/09/19 Jadon Murray MD [facility] [address] [address] Referring Physician Pediatric Surgery 12/09/19 Maru Villagomez, RN Registered Nurse 12/10/19 Ang Slade MD [address] [place] [address] 87994 Urology 04/24/20 Carlos Joyner MD [address] [place] [address] 75162 Assigned Surgical Provider 12/24/20 Annalise Orta PA-C 5200 [place] [address] Assigned Cancer Care Provider 05/13/21 11/01/22 [place] Slade MD [address] [address] Urology 12/18/22 Lakshmi Wilhelm PA-C [address] [place] [address]392 Physician Manager Parking Urology 02/03/23 [place] [address] [place] [address] Assigned PCP 02/06/23 Alissa Perez PA-C [address] [place] [address] Physician Manager Parking Surgery 09/04/23 Lakshmi Wilhelm PA-C [address] [place] [address]54 Physician Manager Parking Urology 09/16/23 Aidee Valero PA-C [address] [place] [address] 55[address] Assigned Musculoskeletal Provider 04/17/24 Tanisha Marlow 4120 [facility] [address] 03/30/24 documented as of this encounter
--- OUTSIDE RECORDS SUMMARY | 2024-06-10 20:09 | XMS_ITS | Encounter Summary ---
Author Organization [place] Address [address] [place] [address] Care Team Providers Care Financial Services Assistant Name Role Phone Carlos Joyner MD Unavailable [phone] Jadon Murray MD Unavailable [phone] Maru Villagomez RN Unavailable Unavailable Ignacia Duran MD Primary Care Provider [phone] Ang Slade MD Unavailable +[phone] Carlos Joyner MD Unavailable +[phone] Annalise Orta PA-C Unavailable [phone] [place] Slade MD Unavailable +[phone] Lakshmi Wilhelm-C Unavailable [phone] Heladio Willoughby MD Primary Care Provider [phone] Heladio Willoughby MD Unavailable Alissa Perez PA-C Unavailable [phone] Lakshmi Wilhelm PA-C Unavailable [phone] Aidee Valero PA-C Unavailable +[phone] Encounter Details Date Type Department Care Team (Late st Contact Info) Description 12/05/2021 [facility] [address] [address] [facility] Social History Tobacco Use Types Packs/Day [...] st Contact Info) Description 06/15/2024 9:30 AM FIRE CONTROL OFFICER Office Visit [facility] [address] [place] [address] Xu Prince MD [address] [place] [address] [phone] 06/15/2024 2:30 PM FIRE CONTROL OFFICER Office Visit [facility] [address] [place] [address] Andreea Cruz PA-C [address] [place] [address] 07/21/2024 4:00 PM FIRE CONTROL OFFICER Office Visit [facility] [address] [place] [address] [place] [address] [place], [place] 4161068 documented as of this encounter Visit Diagnoses Not on filedocumented in this encounter Additional Health Concerns Infection Onset Date Last Indicated Resolved Time MRSA Comment:Added from external infection. Pt has had Staph infections but never MRSA from Care everywhere chart review. Removing MRSA 9.14.23 06/17/2019 02/06/2023 9:41 AM C DT documented as of this encounter Care Teams Financial Services Assistant Relationship Specialty Start Date End Date Ignacia Duran MD PCP - General Pediatrics 01/20/20 03/04/23 [place] [address] [facility] [place] [address] PCP - General 03/05/23 Carlos Joyner MD 9 [place] [address] Urology 12/09/19 Jadon Murray MD [facility] [address] [address] Referring Physician Pediatric Surgery 12/09/19 Maru Villagomez, RN Registered Nurse 12/10/19 [place] Slade MD [address] [address] Urology 04/24/20 Carlos Joyner MD [address] [place] [address] Assigned Surgical Provider 12/24/20 Annalise Orta PA-C 5200 [place] [address] Assigned Cancer Care Provider 05/13/21 11/01/22 [place] Slade MD [address] [address] Urology 12/18/22 Lakshmi Wilhelm PA-C [address] [place] [address] Physician Surface To Air Weapons Officer Urology 02/03/23 [place] [address] [place] [address] Assigned PCP 02/06/23 Alissa Perez PA-C [address] [place] [address] 24753 Physician Surface To Air Weapons Officer Surgery 09/04/23 Lakshmi Wilhelm PA-C [address] [place] [address] 18409 Physician Surface To Air Weapons Officer Urology 09/16/23 Aidee Valero PA-C [address] [place] [address] Assigned Musculoskeletal Provider 04/17/24 Tanisha Marlow 4120 [facility] [address] 03/30/24 documented as of this encounter
--- OUTSIDE RECORDS SUMMARY | 2024-06-10 20:09 | XMS_ITS | Encounter Summary ---
Author Organization [place] Address [address] [place] [address] Care Team Providers Care Film Processor Name Role Phone Carlos Joyner MD Unavailable [phone] Jadon Murray MD Unavailable [phone] Maru Villagomez RN Unavailable Unavailable Ignacia Duran MD Primary Care Provider [place] Slade MD Unavailable [phone] Carlos Joyner MD Unavailable +[phone] Annalise Orta PA-C Unavailable +[phone] [place] Slade MD Unavailable [phone] Lakshmi Wilhelm-C Unavailable [phone] Heladio Willoughby MD Primary Care Provider [phone] Heladio Willoughby MD Unavailable Alissa Perez PA-C Unavailable [phone] Lakshmi Wilhelm PA-C Unavailable [phone] Aidee Valero PA-C Unavailable [phone] Encounter Details Date Type Department Care Team (Late st Contact Info) Description 10/02/2021 [facility] [address] [place] [address] Analisa Palacio, RN Social History [...] st Contact Info) Description 06/15/2024 9:30 AM RESERVATION CLERK Office Visit [address] [phone] Xu Prince MD [address] [place] [address] [phone] 06/15/2024 2:30 PM RESERVATION CLERK Office Visit [facility] [address] [place] [address] Andreea Cruz PA-C [address] [place], [place] [id number] 07/21/2024 4:00 PM RESERVATION CLERK Office Visit [facility] [address] [place] [address] [place] [address] [place] [address] documented as of this encounter Visit Diagnoses Not on filedocumented in this encounter Additional Health Concerns Infection Onset Date Last Indicated Resolved Time MRSA Comment:Added from external infection. Pt has had Staph infections but never MRSA from Care everywhere chart review. Removing MRSA 9.14.23 06/17/2019 02/06/2023 9:41 AM C DT documented as of this encounter Care Teams Film Processor Relationship Specialty Start Date End Date Ignacia Duran MD PCP - General Pediatrics 01/20/20 03/04/23 [place] [address] [place] [address] PCP - General 03/05/23 Carlos Joyner MD [address] [place] [address] Urology 12/09/19 Jadon Murray MD [facility] [address] [address] Referring Physician Pediatric Surgery 12/09/19 Maru Villagomez, RN Registered Nurse 12/10/19 Ang Slade MD [address] [place] [address] 248515 Urology 04/24/20 Carlos Joyner MD [address] [place] [address] 617625 Assigned Surgical Provider 12/24/20 Annalise Orta PA-C 5200 [place] [address] Assigned Cancer Care Provider 05/13/21 11/01/22 Ang Slade MD [address] [address] Urology 12/18/22 Lakshmi Wilhelm PA-C [address] [place] [address] 169645 Physician Excellence Consultant Urology 02/03/23 [place] [address] [place] [address] Assigned PCP 02/06/23 Alissa Perez PA-C [address] [place] [address] 553455 Physician Excellence Consultant Surgery 09/04/23 Lakshmi Wilhelm PA-C [address] [place] [address]661 Physician Excellence Consultant Urology 09/16/23 Aidee Valero PA-C [address] [place] [address] 772405 Assigned Musculoskeletal Provider 04/17/24 Tanisha Marlow 4120 [facility] [address] 03/30/24 documented as of this encounter
--- OUTSIDE RECORDS SUMMARY | 2024-06-10 20:09 | XMS_ITS | Encounter Summary ---
Author Organization [place] Address [address] [place] [address] Care Team Providers Care Turbine Attendant Name Role Phone Carlos Joyner MD Unavailable [phone] Jadon Murray MD Unavailable [phone] Maru Villagomez RN Unavailable Unavailable Ignacia Duran MD Primary Care Provider Ang Slade MD Unavailable [phone] Carlos Joyner MD Unavailable [phone] Annalise Orta-C Unavailable Ang Slade MD Unavailable [phone] Lakshmi Wilhelm-C Unavailable [phone] Heladio Willoughby MD Primary Care Provider Heladio Willoughby MD Unavailable Alissa Perez PA-C Unavailable [phone] Lakshmi Wilhelm-C Unavailable [phone] Aidee Valero PA-C Unavailable Encounter Details Date Type Department Care Team (Late st Contact Info) Description 10/12/2021 [facility] [address] 5th [place] [address] Tanisha Coe PA-C [address] [place] [address] Social History Tobacco Use Types Packs/Day [...] st Contact Info) Description 06/15/2024 9:30 AM EXPERT WITNESS Office Visit [facility] [address] [facility] [place] [place] [phone] Xu Prince MD [address] [place] [address] 424564 06/15/2024 2:30 PM EXPERT WITNESS Office Visit [facility] [address] [place] [address] Andreea Cruz PA-C [address] [place] [address] 07/21/2024 4:00 PM EXPERT WITNESS Office Visit [facility] [address] [place] [address] [place] [address] [place] [address] documented as of this encounter Visit Diagnoses Not on filedocumented in this encounter Additional Health Concerns Infection Onset Date Last Indicated Resolved Time MRSA Comment:Added from external infection. Pt has had Staph infections but never MRSA from Care everywhere chart review. Removing MRSA 02.06.23 06/17/2019 02/06/2023 9:41 AM C DT documented as of this encounter Care Teams Turbine Attendant Relationship Specialty Start Date End Date Ignacia Duran MD PCP - General Pediatrics 01/20/20 03/04/23 [place] [address] [facility] [place] [address] PCP - General 03/05/23 Carlos Joyner MD [address] [place] [address] Urology 12/09/19 Jadon Murray MD [facility] [address] [address] Referring Physician Pediatric Surgery 12/09/19 Maru Villagomez, OTILIO Registered Nurse 12/10/19 Ang Slade MD [address] [place] [place] [address] Urology 04/24/20 Carlos Joyner MD [address] [place] [address] 547805 Assigned Surgical Provider 12/24/20 Annalise Orta PA-C 5200 [place] [address] Assigned Cancer Care Provider 05/13/21 11/01/22 Ang Slade MD [address] [place] [place] [address] Urology 12/18/22 Lakshmi Wilhelm PA-C [address] [place] [address] 693115 Physician Incinerator Plant General Supervisor Urology 02/03/23 [place] [address] [place] [address] Assigned PCP 02/06/23 Alissa Perez PA-C [address] [place] [address] 250075 Physician Incinerator Plant General Supervisor Surgery 09/04/23 Lakshmi Wilhelm PA-C [address] [place] [address] 859835 Physician Incinerator Plant General Supervisor Urology 09/16/23 Aidee Valero PA-C [address] [place] [address] 279415 Assigned Musculoskeletal Provider 04/17/24 Tanisha Marlow 4120 [facility] [address] 03/30/24 documented as of this encounter
--- OUTSIDE RECORDS SUMMARY | 2024-06-10 20:09 | XMS_ITS | Encounter Summary ---
Author Organization [place] Address [address] [place] [address] Care Team Providers Care Nursing Care Attendant Name Role Phone Carlos Joyner MD Unavailable [phone] Jadon Murray MD Unavailable [phone] Maru Villagomez RN Unavailable Unavailable Ignacia Duran MD Primary Care Provider [phone] Ang Slade MD Unavailable Carlos Joyner MD Unavailable +[phone] Annalise Orta PA-C Unavailable [phone] Ang Slade MD Unavailable [phone] Lakshmi Wilhelm-C Unavailable Heladio Willoughby MD Primary Care Provider Heladio Willoughby MD Unavailable Alissa Perez PA-C Unavailable [phone] Lakshmi Wilhelm PA-C Unavailable Aidee Valero PA-C Unavailable Encounter Details Date Type Department Care Team (Late st Contact Info) Description 09/17/2021 [facility] Clinic [address] [place] [address] Carlos Joyner MD [address] [place] [address] Social History Tobacco Use Types Packs/Day [...] st Contact Info) Description 06/15/2024 9:30 AM HEAD ESTHETICIAN Office Visit [address] [phone] Xu Prince MD [address] [place] [address] 06/15/2024 2:30 PM HEAD ESTHETICIAN Office Visit [facility] [address] [place] [address] Andreea Cruz PAEarlC [address] [place] [address] 07/21/2024 4:00 PM HEAD ESTHETICIAN Office Visit [facility] [address] [place] [address] [place] [address] [place] [address] documented as of this encounter Visit Diagnoses Not on filedocumented in this encounter Additional Health Concerns Infection Onset Date Last Indicated Resolved Time MRSA Comment:Added from external infection. Pt has had Staph infections but never MRSA from Care everywhere chart review. Removing MRSA 9.14.23 06/17/2019 02/06/2023 9:41 AM C DT documented as of this encounter Care Teams Nursing Care Attendant Relationship Specialty Start Date End Date Ignacia Duran MD PCP - General Pediatrics 01/20/20 03/04/23 [place] [address] [place] [address] PCP - General 03/05/23 Carlos Joyner MD [address] [place] [address] Urology 12/09/19 Jadon Murray MD [facility] [address] [address] Referring Physician Pediatric Surgery 12/09/19 Maru Villagomez, OTILIO Registered Nurse 12/10/19 Ang Slade MD 420 [facility] [address] [place] [address] Urology 04/24/20 Carlos Joyner MD [address] [place] [address] Assigned Surgical Provider 12/24/20 Annalise Orta PA-C 5200 [place] [address] Assigned Cancer Care Provider 05/13/21 11/01/22 Ang Slade MD [address] [place] [address] Urology 12/18/22 Lakshmi Wilhelm PA-C [address] [place] [address] Physician Wearing Apparel Assembler Urology 02/03/23 [place] [address] [place] [address] Assigned PCP 02/06/23 Alissa Perez PA-C [address] [place] [address] Physician Wearing Apparel Assembler Surgery 09/04/23 Lakshmi Wilhelm PA-C [address] [place] [address] Physician Wearing Apparel Assembler Urology 09/16/23 Aidee Valero PA-C [address] [place] [address] Assigned Musculoskeletal Provider 04/17/24 Tanisha Marlow 4120 [facility] [address] 03/30/24 documented as of this encounter
--- OUTSIDE RECORDS SUMMARY | 2024-06-10 20:09 | XMS_ITS | Encounter Summary ---
Author Organization [facility] Address [address] [place] [address] Care Team Providers Care Cane Furniture Maker Name Role Phone Carlos Joyner MD Unavailable [phone] Jadon Murray MD Unavailable [phone] Maru Villagomez RN Unavailable Unavailable Ignacia Duran MD Primary Care Provider [phone] Ang Slade MD Unavailable +[phone] Carlos Joyner MD Unavailable [phone] Annalise Orta PA-C Unavailable Ang Slade MD Unavailable Lakshmi Wilhelm-C Unavailable [phone] Heladio Willoughby MD Primary Care Provider [phone] Heladio Willoughby MD Unavailable Alissa Perez PA-C Unavailable [phone] Lakshmi Wilhelm PA-C Unavailable Aidee Valero PA-C Unavailable Encounter Details Date Type Department Care Team (Late st Contact Info) Description 12/18/2021 [facility] U[facility] Clinic [address] [place] [address] Carlos Joyner MD [address] [place] [address] Social History Tobacco Use Types Packs/Day [...] st Contact Info) Description 06/15/2024 9:30 AM INSURANCE SPECIALIST Office Visit [facility] [address] [place] [address] Xu Prince MD [address] [place] [address] [phone] 06/15/2024 2:30 PM INSURANCE SPECIALIST Office Visit [facility] [address] [place] [address] Andreea Cruz PA-C [address] [place] [address] 07/21/2024 4:00 PM INSURANCE SPECIALIST Office Visit [facility] [address] [place] [address] [place] [address] [place] [address] documented as of this encounter Visit Diagnoses Not on filedocumented in this encounter Additional Health Concerns Infection Onset Date Last Indicated Resolved Time MRSA Comment:Added from external infection. Pt has had Staph infections but never MRSA from Care everywhere chart review. Removing MRSA 02.06.23 06/17/2019 02/06/2023 9:41 AM C DT documented as of this encounter Care Teams Cane Furniture Maker Relationship Specialty Start Date End Date Ignacia Duran MD PCP - General Pediatrics 01/20/20 03/04/23 [place] [address] [place] [address] PCP - General 03/05/23 Carlos Joyner MD [address] [place] [address] 276785 Urology 12/09/19 Jadon Murray MD [facility] [address] [address] Referring Physician Pediatric Surgery 12/09/19 Maru Villagomez, OTILIO Registered Nurse 12/10/19 Ang Slade MD [address] [place] [address] Urology 04/24/20 Carlos Joyner MD [address] [place] [address] 25043 Assigned Surgical Provider 12/24/20 Annalise Orta PA-C 5200 [place] [address] Assigned Cancer Care Provider 05/13/21 11/01/22 Ang Slade MD [address] 324365 Urology 12/18/22 Lakshmi Wilhelm PA-C [address] [place] [address] 482585 Physician Firefighter Urology 02/03/23 [place] [address] [facility] [place] [address] Assigned PCP 02/06/23 Alissa Perez PA-C [address] [place] [address] 477705 Physician Firefighter Surgery 09/04/23 Lakshmi Wilhelm PA-C [address] [place] [address] 909935 Physician Firefighter Urology 09/16/23 Aidee Valero PA-C [address] [place] [address] 048835 Assigned Musculoskeletal Provider 04/17/24 Tanisha Marlow 4120 [facility] [address] 03/30/24 documented as of this encounter
--- OUTSIDE RECORDS SUMMARY | 2024-06-10 20:09 | XMS_ITS | Encounter Summary ---
Author Organization [place] Address [address] [place] [address] Care Team Providers Care Motor Vehicle Salesperson Name Role Phone Carlos Joyner MD Unavailable [phone] Jadon Murray MD Unavailable [phone] Maru Villagomez RN Unavailable Unavailable Ignacia Duran MD Primary Care Provider [phone] Ang Slade MD Unavailable [phone] Carlos Joyner MD Unavailable [phone] Annalise Orta PA-C Unavailable [phone] Ang Slade MD Unavailable [phone] Lakshmi Wilhelm-C Unavailable [phone] Heladio Willoughby MD Primary Care Provider [phone] Heladio Willoughby MD Unavailable Alissa Perez PA-C Unavailable [phone] Lakshmi Wilhelm PA-C Unavailable [phone] Aidee Valero PA-C Unavailable [phone] Encounter Details Date Type Department Care Team (Late st Contact Info) Description 11/07/2021 [facility] [address] [place] [address] Analisa Palacio, RN Social History [...] st Contact Info) Description 06/15/2024 9:30 AM SOLAR ENERGY SALES SPECIALIST Office Visit [facility] [address] [place] [phone] Xu Pirnce MD [address] [place] [address] [id number] 06/15/2024 2:30 PM SOLAR ENERGY SALES SPECIALIST Office Visit [facility] [address] [place] [address] Andreea Cruz PA-C [address]20 [place] [address] 07/21/2024 4:00 PM SOLAR ENERGY SALES SPECIALIST Office Visit [facility] [address] [place] [address] [place] [address] [place], [place] [phone] documented as of this encounter Visit Diagnoses Not on filedocumented in this encounter Additional Health Concerns Infection Onset Date Last Indicated Resolved Time MRSA Comment:Added from external infection. Pt has had Staph infections but never MRSA from Care everywhere chart review. Removing MRSA 9.14.23 06/17/2019 02/06/2023 9:41 AM C DT documented as of this encounter Care Teams Motor Vehicle Salesperson Relationship Specialty Start Date End Date Ignacia Duran MD PCP - General Pediatrics 01/20/20 03/04/23 [place] [address] [facility] [place] [address] PCP - General 03/05/23 Carlos Joyner MD [address] [place] [address] Urology 12/09/19 Jadon Murray MD [facility] [address] [address] Referring Physician Pediatric Surgery 12/09/19 Maru Villagomez, RN Registered Nurse 12/10/19 Ang Slade MD [address] [place] [address] Urology 04/24/20 Carlos Joyner MD [address] [place] [address] Assigned Surgical Provider 12/24/20 Annalise Orta PA-C 5200 [place] [address] Assigned Cancer Care Provider 05/13/21 11/01/22 Ang Slade MD [address] [address] Urology 12/18/22 Lakshmi Wilhelm PA-C [address] [place] [address]571 Physician Tearoom Host Urology 02/03/23 [place] [address] [place] [address] Assigned PCP 02/06/23 Alissa Perez PA-C [address] [place] [address] Physician Tearoom Host Surgery 09/04/23 Lakshmi Wilhelm PA-C [address] [place] [address] Physician Tearoom Host Urology 09/16/23 Aidee Valero PA-C [address] [place] [address] Assigned Musculoskeletal Provider 04/17/24 Tanisha Marlow 4120 [facility] [address] 03/30/24 documented as of this encounter
--- OUTSIDE RECORDS SUMMARY | 2024-06-10 20:10 | XMS_ITS | Encounter Summary ---
Author Organization [place] Address [address] [place] [address] 8[address]54 Care Team Providers Care Pulp Mill Operator Name Role Phone Carlos Joyner MD Unavailable +[phone] Jadon Murray MD Unavailable +[phone] aMru Villagomez RN Unavailable Unavailable Ignacia Duran MD Primary Care Provider +[phone] Ang Slade MD Unavailable +[phone] Carlos Joyner MD Unavailable +[phone] Annalise Orta PA-C Unavailable +[phone] Ang Slade MD Unavailable +[phone] Lakshmi Wilhelm PA-C Unavailable +[phone] Heladio Willoughby MD Primary Care Provider [phone] Heladio Willoughby MD Unavailable Alissa Perez PA-C Unavailable [phone] Lakshmi Wilhelm PA-C Unavailable [phone] Aidee Valero PA-C Unavailable +[phone] Encounter Details Date Type Department Care Team (Late st Contact Info) Description 07/19/2021 [facility] [place] [address] [facility] 4th [place] [address] Shyann Rehman Social History Tobacco [...] COVID-19? No / Unsure 06/19/2021 11:16 AM HAMMERER HELPER documented as of this encounter Plan of Treatment Upcoming Encounters Date Type Department Care Team (Late st Contact Info) Description 06/15/2024 9:30 AM HAMMERER HELPER Office Visit [facility] [address] [place] [phone] Xu Prince MD [address] [place] [address] 713814 06/15/2024 2:30 PM HAMMERER HELPER [facility] [address] [place] [address] Andreea Cruz PA-C [address] [place] [address] 07/21/2024 4:00 PM HAMMERER HELPER [facility] [address] [place] [address] [place] [address] [place] [address] documented as of this encounter Visit Diagnoses Not on filedocumented in this encounter Additional Health Concerns Infection Onset Date Last Indicated Resolved Time MRSA Comment:Added from external infection. Pt has had Staph infections but never MRSA from Care everywhere chart review. Removing MRSA 9.14.23 06/17/2019 02/06/2023 9:41 AM C DT documented as of this encounter Care Teams Pulp Mill Operator Relationship Specialty Start Date End Date Ignacia Duran MD PCP - General Pediatrics 01/20/20 03/04/23 [place] [address] [facility] [address] PCP - General 03/05/23 Carlos Joyner MD [address] [place] [address] 57444 Urology 12/09/19 Jadon Murray MD [facility] [address] [address] Referring Physician Pediatric Surgery 12/09/19 Maru Villagomez, OTILIO Registered Nurse 12/10/19 Ang Slade MD [address] [place] [address] 93539 Urology 04/24/20 Carlos Joyner MD [address] [place] [address] 43567 Assigned Surgical Provider 12/24/20 Annalise Orta PA-C 5200 [place] [address] Assigned Cancer Care Provider 05/13/21 11/01/22 Ang Slade MD [address] [place] [address] 065395 Urology 12/18/22 Lakshmi Wilhelm PA-C [address] [place] [address] 666085 Physician Perinatal Specialist Urology 02/03/23 [place] [address] [place] [address] Assigned PCP 02/06/23 Alissa Perez PA-C [address] [place] [address] 817575 Physician Perinatal Specialist Surgery 09/04/23 Lakshmi Wilhelm PA-C [address] [place] [address] 789085 Physician Perinatal Specialist Urology 09/16/23 Aidee Valero PA-C 909 [place], [place] 417495 Assigned Musculoskeletal Provider 04/17/24 Tanisha Marlow 4120 [facility] [address] 03/30/24 documented as of this encounter
--- OUTSIDE RECORDS SUMMARY | 2024-06-10 20:11 | XMS_ITS | Encounter Summary ---
Author Organization [facility] Address [address] [place] [address] Care Team Providers Care Leave Coordinator Name Role Phone Carlos Joyner MD Unavailable +[phone] Jadon Murray MD Unavailable +[phone] Maru Villagomez RN Unavailable Unavailable Ignacia Duran MD Primary Care Provider [phone] Ang Slade MD Unavailable +[phone] Carlos Joyner MD Unavailable +[phone] Annalise Orta PA-C Unavailable +[phone] Ang Slade MD Unavailable +[phone] Lakshmi Wilhelm-C Unavailable [phone] Heladio Willoughby MD Primary Care Provider [phone] Heladio Willoughby MD Unavailable Alissa Perez PA-C Unavailable [phone] Lakshmi Wilhelm PA-C Unavailable +[phone] Aidee Valero PA-C Unavailable +[phone] Encounter Details Date Type Department Care Team (Late st Contact Info) Description 04/16/2021 [facility] [address] [place] [address] Berna Britton Social History Tobacco [...] Contact Info) Description 06/15/2024 9:30 AM SUPERVISOR CLEANING AND ANNEALING Office Visit [facility] [address] [place] [phone] Xu Prince MD [address] [place] [address] 091874 06/15/2024 2:30 PM SUPERVISOR CLEANING AND ANNEALING [facility] [address] [place] [address] Andreea Cruz PA-C [address] [place] [address] 07/21/2024 4:00 PM SUPERVISOR CLEANING AND ANNEALING Office Visit [facility] [address] [place] [address] [place] [address] [place] [address] documented as of this encounter Visit Diagnoses Not on filedocumented in this encounter Additional Health Concerns Infection Onset Date Last Indicated Resolved Time MRSA Comment:Added from external infection. Pt has had Staph infections but never MRSA from Care everywhere chart review. Removing MRSA 02.06.23 06/17/2019 02/06/2023 9:41 AM C DT documented as of this encounter Care Teams Leave Coordinator Relationship Specialty Start Date End Date Ignacia Duran MD PCP - General Pediatrics 01/20/20 03/04/23 [place] [address] [place] [address] PCP - General 03/05/23 Carlos Joyner MD [address] [place] [address] 29113 Urology 12/09/19 Jadon Murray MD [facility] 2530 [facility] [address] [address] Referring Physician Pediatric Surgery 12/09/19 Maru Villagomez, RN Registered Nurse 12/10/19 Ang Slade MD [address] [place] [address] 324[address] Urology 04/24/20 Carlos Joyner MD [address] [place] [address]1025 Assigned Surgical Provider 12/24/20 Annalise Orta PA-C 5200 [place] [address] Assigned Cancer Care Provider 05/13/21 11/01/22 Ang Slade MD [address] [place] [address] 14927 Urology 12/18/22 Lakshmi Wilhelm PA-C [address] [place] [address] 36561 Physician Sourcing Assistant Urology 02/03/23 [place] [address] [place] [address] Assigned PCP 02/06/23 Alissa Perez PA-C [address] [place] [address] 08561 Physician Sourcing Assistant Surgery 09/04/23 Lakshmi Wilhelm PA-C [address] [place] [address] 494855 Physician Sourcing Assistant Urology 09/16/23 Aidee Valero PA-C [address] [place] [address] 403705 Assigned Musculoskeletal Provider 04/17/24 Tanisha Marlow 4120 [facility] [address] 03/30/24 documented as of this encounter
--- OUTSIDE RECORDS SUMMARY | 2024-06-10 20:11 | XMS_ITS | Encounter Summary ---
Author Organization [place] Address [address] [place] [address] 9[address]67 Care Team Providers Care Kettle Girl Name Role Phone Carlos Joyner MD Unavailable +[phone] Jadon Murray MD Unavailable +[phone] Maru Villagomez RN Unavailable Unavailable Ignacia Duran MD Primary Care Provider [phone] Carlos Joyner MD Unavailable +[phone] Ang Slade MD Unavailable +[phone] Ang Slade MD Unavailable [phone] Carlos Joyner MD Unavailable +[phone] Annalise Orta-C Unavailable [phone] Ang Slade MD Unavailable [phone] Lakshmi Wilhelm-C Unavailable +[phone] Heladio Willoughby MD Primary Care Provider [phone] Heladio Willoughby MD Unavailable Alissa Perez PA-C Unavailable [phone] Lakshmi Wilhelm-C Unavailable +[phone] Aidee Valero PA-C Unavailable +[phone] Reason for Visit * Reason Comments Orders Encounter Details Date Type Department Care Team (Late st Contact Info) Description 02/02/2020 Orders Only [facility] [address] [phone] Maru Villagomez, RN Social History Tobacco Use [...] st Contact Info) Description 06/15/2024 9:30 AM STEEL CHIPPER Office Visit [facility] [address] [place] [phone] Xu Prince MD [address] [place] [address] 069074 06/15/2024 2:30 PM STEEL CHIPPER Office Visit [facility] [address] [place] [address] Andreea Cruz PA-C [address] [place] [address] 07/21/2024 4:00 PM STEEL CHIPPER Office Visit [facility] [address] [place] [address] [place] [address] [place] [address] documented as of this encounter Visit Diagnoses Not on filedocumented in this encounter Additional Health Concerns Infection Onset Date Last Indicated Resolved Time MRSA Comment:Added from external infection. Pt has had Staph infections but never MRSA from Care everywhere chart review. Removing MRSA 9.14.23 06/17/2019 02/06/2023 9:41 AM C DT documented as of this encounter Care Teams Kettle Girl Relationship Specialty Start Date End Date Ignacia Duran MD PCP - General Pediatrics 01/20/20 03/04/23 [place] [address] [place] [address] PCP - General 03/05/23 Carlos Joyner MD [address] [place] [address] 361565 Urology 12/09/19 Jadon Murray MD [facility] [address] [id number] Referring Physician Pediatric Surgery 12/09/19 Maru Villagomez, RN Registered Nurse 12/10/19 Carlos Joyner MD [address] [place] [address] 426505 Assigned Surgical Provider 03/17/20 Ang Slade MD [address] [place] [address] 594365 Urology 04/24/20 Ang Slade MD [address] [place] [address] 519635 Assigned Surgical Provider 08/13/20 Carlos Joyner MD [address] [place] [address] 459125 Assigned Surgical Provider 12/24/20 Annalise Orta PA-C 5200 [place] [address] Assigned Cancer Care Provider 05/13/21 11/01/22 Ang Slade MD [address] [place] [address] 205745 MD Urology 12/18/22 Lakshmi Wilhelm PA-C [address] [place] [address] 232925 Physician Client Manager Large [employer] Urology 02/03/23 [place] [address] [place] [address] Assigned PCP 02/06/23 Alissa Perez PA-C [address] [place] [address] 521885 Physician Client Manager [employer] Surgery 09/04/23 Lakshmi Wilhelm PA-C [address] [place] [address] 395085 Physician Client Manager [employer] Urology 09/16/23 Aidee Valero PA-C [address] [place] [address] 645595 Assigned Musculoskeletal Provider 04/17/24 Tanisha Marlow 4120 [facility] [address] 03/30/24 documented as of this encounter
--- OUTSIDE RECORDS SUMMARY | 2024-06-10 20:11 | XMS_ITS | Encounter Summary ---
Author Organization [facility] Address [address] [place] [address] 89662 Care Team Providers Care Set Up Worker Name Role Phone Carlos Joyner MD Unavailable [phone] Jadon Murray MD Unavailable +[phone] Maru Villagomez RN Unavailable Unavailable Ignacia Duran MD Primary Care Provider Ang Slade MD Unavailable [phone] Carlos Joyner MD Unavailable +[phone] Annalise Orta PA-C Unavailable +[phone] Ang Slade MD Unavailable +[phone] Lakshmi Wilhelm-C Unavailable [phone] Heladio Willoughby MD Primary Care Provider Heladio Willoughby MD Unavailable Alissa Perez PA-C Unavailable [phone] Lakshmi Wilhelm PA-C Unavailable [phone] Aidee Valero PA-C Unavailable +[phone] Reason for Visit * Reason Onset Date Comments Patient/info Update 02/26/2021 pt currently intubated, will nto be able to have uro surgery Encounter Details Date Type Department Care Team ([facility] Contact Info) Description 02/26/2021 [facility] Clinic [address] [place] [address] Carlos Joyner MD 909 [place], [place] 545835 Patient/info Update (pt currently intubated, will nto [...] Lakshmi Chowdhury - 02/26/2021 2:07 PM CDT [facility] Phone Message May a detailed message be left on voicemail: yes Reason for Call: Other: Edith called in wanting to let Dr. Joyner and his team know that [facility] date [facility]09[facility]21. Please call back if thereare any questions at [phone] Action Taken: Message routed to: [facility] uro Travel Screening: Not Applicable documented in this encounter Plan of Treatment Upcoming Encounters Date Type Department Care Team (Late st Contact Info) Description 06/15/2024 9:30 AM BRIQUETTE MAKER Office Visit [address] [address] Xu Prince MD [address] [place] [address] 469234 06/15/2024 2:30 PM BRIQUETTE MAKER [facility] [address] [place] [phone] Andreea Cruz PA-C [address] [place], [place] 1705068 07/21/2024 4:00 PM BRIQUETTE MAKER [facility] [address] [place] [address] [place] [address] [place], [place] 1497268 documented as of this encounter Visit Diagnoses Not on filedocumented in this encounter Additional Health Concerns Infection Onset Date Last Indicated Resolved Time MRSA Comment:Added from external infection. Pt has had Staph infections but never MRSA from Care everywhere chart review. Removing MRSA .1406/17/2019 02/06/2023 9:41 AM C DT documented as of this encounter Care Teams Set Up Worker Relationship Specialty Start Date End Date Ignacia Duran MD PCP - General Pediatrics 01/20/20 03/04/23 [place] [address] [place], [place] 7391868 PCP - General 03/05/23 Carlos Joyner MD 9 [place] [address] Urology 12/09/19 Jadon Murray MD [facility] [address] [address] Referring Physician Pediatric Surgery 12/09/19 Maru Villagomez, OTILIO Registered Nurse 12/10/19 Ang Slade MD [address] [place] [address] Urology 04/24/20 Carlos Joyner MD [address] [place] [address] 36852 Assigned Surgical Provider 12/24/20 Annalise Orta PA-C 5200 [place] [address] Assigned Cancer Care Provider 05/13/21 11/01/22 Ang Slade MD [address] [place] [place] [address] 15167 Urology 12/18/22 Lakshmi Wilhelm PA-C [address] [place] [address] 86770 Physician Professional Model Urology 02/03/23 [place] [address] [place] [address] Assigned PCP 02/06/23 Alissa Perez PA-C [address] [place] [address]207 Physician Professional Model Surgery 09/04/23 Lakshmi Wilhelm PA-C [address] [place] [address] 35753 Physician Professional Model Urology 09/16/23 Aidee Valero PA-C [address] [place] [address] 62073 Assigned Musculoskeletal Provider 04/17/24 Tanisha Marlow 4120 [facility] [address] 03/30/24 documented as of this encounter
--- OUTSIDE RECORDS SUMMARY | 2024-06-10 20:11 | XMS_ITS | Encounter Summary ---
Author Organization [place] Address [address] [place] [address] Care Team Providers Care Power Checker Name Role Phone Carlos Joyner MD Unavailable +[phone] Jadon Murray MD Unavailable [phone] Maru Villagomez RN Unavailable Unavailable Ignacia Duarn MD Primary Care Provider [phone] Ang Slade MD Unavailable +[phone] Carlos Joyner MD Unavailable +[phone] Annalise Orta PA-C Unavailable +[phone] Ang Slade MD Unavailable +[phone] Lakshmi Wilhelm-C Unavailable [phone] Heladio Willoughby MD Primary Care Provider [phone] Heladio Willoughby MD Unavailable Alissa Perez PA-C Unavailable [phone] Lakshmi Wilhelm PA-C Unavailable [phone] Aidee Valero PA-C Unavailable +[phone] Encounter Details Date Type Department Care Team (Late st Contact Info) Description 06/19/2021 [facility] [address] [address] Jenna Mcfadden, RN Social History [...] COVID-19? No / Unsure 06/19/2021 11:16 AM RENTAL SALES ASSOCIATE documented as of this encounter Plan of Treatment Upcoming Encounters Date Type Department Care Team (Late st Contact Info) Description 06/15/2024 9:30 AM RENTAL SALES ASSOCIATE Office Visit [facility] [address] [place] [address] Xu Prince MD [address] [place] [address] 588634 06/15/2024 2:30 PM RENTAL SALES ASSOCIATE [facility] [address] [place] [address] Andreea Cruz PA-C [address] [place] [address] 07/21/2024 4:00 PM RENTAL SALES ASSOCIATE [facility] [address] [place] [address] [place] [address] [place] [address] documented as of this encounter Visit Diagnoses Not on filedocumented in this encounter Additional Health Concerns Infection Onset Date Last Indicated Resolved Time MRSA Comment:Added from external infection. Pt has had Staph infections but never MRSA from Care everywhere chart review. Removing MRSA 9.14.23 06/17/2019 02/06/2023 9:41 AM C DT documented as of this encounter Care Teams Power Checker Relationship Specialty Start Date End Date Ignacia Duran MD PCP - General Pediatrics 01/20/20 03/04/23 [place] [address] [facility] [place] [address] PCP - General 03/05/23 Carlos Joyner MD [address] [place] [address]38 Urology 12/09/19 Jadon Murray MD [facility] [address] [id number] Referring Physician Pediatric Surgery 12/09/19 Maru Villagomez, OTILIO Registered Nurse 12/10/19 Ang Slade MD [address] [place] [address] 9[address] Urology 04/24/20 Carlos Joyner MD [address] [place] [address] 11347 Assigned Surgical Provider 12/24/20 Annalise Orta PA-C 5200 [place] [address] Assigned Cancer Care Provider 05/13/21 11/01/22 Ang Slade MD [address] [place] [address] 643295 Urology 12/18/22 Lakshmi Wilhelm PA-C [address] [place] [address] 845795 Physician Assistant Education Director Urology 02/03/23 [place] [address] [place] [address] Assigned PCP 02/06/23 Alissa Perez PA-C [address] [place] [address] 042665 Physician Assistant Education Director Surgery 09/04/23 Lakshmi Wilhelm PA-C [address] [place] [address] 810425 Physician Assistant Education Director Urology 09/16/23 Aidee Valero PA-C 909 [place], [place] 035725 Assigned Musculoskeletal Provider 04/17/24 Tanisha Marlow 4120 [facility] [address] 03/30/24 documented as of this encounter
--- OUTSIDE RECORDS SUMMARY | 2024-06-10 20:11 | XMS_ITS | Encounter Summary ---
Author Organization [facility] Address [address] [place] [address]368 Care Team Providers Care Computer Science Instructor Name Role Phone Carlos Joyner MD Unavailable +[phone] Jadon Murray MD Unavailable [phone] Maru Villagomez RN Unavailable Unavailable Ignacia Duran MD Primary Care Provider [phone] Carlos Joyner MD Unavailable +[phone] Ang Slade MD Unavailable +[phone] Ang Slade MD Unavailable [phone] Carlos Joyner MD Unavailable +[phone] Annalise Orta PA-C Unavailable +[phone] Ang Slade MD Unavailable +[phone] Lakshmi Wilhelm-C Unavailable [phone] Heladio Willoughby MD Primary Care Provider [phone] Heladio Willoughby MD Unavailable Alissa Perez PA-C Unavailable [phone] Lakshmi Wilhelm-C Unavailable +[phone] Aidee Valero PA-C Unavailable +[phone] Reason for Visit * Reason Onset Date Comments Call Back 08/01/2020 Miscommunication between urinary results Encounter Details Date Type Department Care Team (Late st Contact Info) Description 08/01/2020 Telephone [facility] [address] [place] [phone] Ang Slade MD 420 [facility] 394 [place], [place] 934065 Call Back (Miscommunication between urinary results) Social [...] COVID-19? No / Unsure 08/02/2020 8:37 AM DIVISION ENGINEER documented as of this encounter Miscellaneous Notes * Telephone Encounter - Diego Sams - 08/01/2020 11:21 AM CST [facility] Phone Message May a detailed message be left on voicemail: yes Reason for Call: Other: Cristine with [facility] calling because pt's primary, , would like to speak with or a nurse regarding pt's urinary results. Reports that there is some miscommunication that she wants to clarify. Please call back. Action Taken: Message routed to: [facility] uro Travel Screening: Not Applicable SION ENGINEER documented in this encounter Plan of Treatment Upcoming Encounters Date Type Department Care Team (Late st Contact Info) Description 06/15/2024 9:30 AM DIVISION ENGINEER Office Visit [address] [address] Xu Prince MD [address] [place] [address] 106 [place] [address] 06/15/2024 2:30 PM DIVISION ENGINEER [facility] [address] [place] [phone] Andreea Cruz PA-C [address] [place], [place] 3657368 07/21/2024 4:00 PM DIVISION ENGINEER [facility] [address] [place] [phone] [place] [address] [place], [place] 9419868 documented as of this encounter Visit Diagnoses Not on filedocumented in this encounter Additional Health Concerns Infection Onset Date Last Indicated Resolved Time MRSA Comment:Added from external infection. Pt has had Staph infections but never MRSA from Care everywhere chart review. Removing MRSA 02.06.23 06/17/2019 02/06/2023 9:41 AM C DT documented as of this encounter Care Teams Computer Science Instructor Relationship Specialty Start Date End Date Ignacia Duran MD PCP - General Pediatrics 01/20/20 03/04/23 [place] [address] [place], [place] 5638968 PCP - General 03/05/23 Carlos Joyner MD 909 [place] [address] Urology 12/09/19 Jadon Murray MD [facility] [address] [address] Referring Physician Pediatric Surgery 12/09/19 Maru Villagomez, RN Registered Nurse 12/10/19 Carlos Joyner MD 909 [place], [place] 656305 Assigned Surgical Provider 03/17/20 Ang Slade MD 420 [facility] 394 [place], [place] 701895 Urology 04/24/20 Ang Slade MD 420 [facility] 394 [place], [place] 988935 Assigned Surgical Provider 08/13/20 Carlos Joyner MD [address] [place] [address] 619065 Assigned Surgical Provider 12/24/20 Annalise Orta PA-C 5200 [place] [address] Assigned Cancer Care Provider 05/13/21 11/01/22 Ang Slade MD [address] 815785 Urology 12/18/22 Lakshmi Wilhelm PA-C [address] [place] [address] 849765 Physician Sales Agent Pest Control Service Urology 02/03/23 [place] [address] [facility] [place] [address] Assigned PCP 02/06/23 Alissa Perez PA-C [address] [place] [address] 38618 Physician Sales Agent Pest Control Service Surgery 09/04/23 Lakshmi Wilhelm PA-C [address] [place] [address] 83062 Physician Sales Agent Pest Control Service Urology 09/16/23 Aidee Valero PA-C [address] [place] [address] 40314 Assigned Musculoskeletal Provider 04/17/24 Tanisha Marlow 4120 [facility] [address] 03/30/24 documented as of this encounter
--- OUTSIDE RECORDS SUMMARY | 2024-06-10 20:11 | XMS_ITS | Encounter Summary ---
Author Organization [place] Address [address] [place] [address] Care Team Providers Care Section Leader And Machine Setter Name Role Phone Carlos Joyner MD Unavailable [phone] Jadon Murray MD Unavailable [phone] Maru Villagomez RN Unavailable Unavailable Ignacia Duran MD Primary Care Provider [phone] Carlos Joyner MD Unavailable [phone] Ang Slade MD Unavailable [phone] Ang Slade MD Unavailable [phone] Carlos Joyner MD Unavailable [phone] Annalise Orta PA-C Unavailable [phone] Ang Slade MD Unavailable [phone] Lakshmi Wilhelm-C Unavailable [phone] Heladio Willoughby MD Primary Care Provider [phone] Heladio Willoughby MD Unavailable Alissa Perez PA-C Unavailable [phone] Lakshmi Wilhelm-C Unavailable [phone] Aidee Valero PA-C Unavailable [phone] Reason for Visit * Reason Onset Date Comments Call Back 06/07/2020 Stent FYI Encounter Details Date Type Department Care Team (Late st Contact Info) Description 06/07/2020 [facility] [place] [id number] [facility] 4th [place] [phone] Ang Slade MD [address] [facility] [address] [place], [place] 8[address]25 Call Back (Stent FYI) Social History Tobacco [...] them back message sent to lamar [email or web address] FILLER * Telephone Encounter - Zo Geiger - 06/07/2020 3:[address] [facility] Phone Message May a detailed message be left on voicemail: yes Reason for Call: Other: Cristine calling to let us know that Laina's stent was put in by a provider[facility] in the Emergency room on 02/04. Cristine is hoping to get a call back to discuss. Action Taken: Message routed to: [facility] Urology Travel Screening: Not Applicable FILLER documented in this encounter Plan of Treatment Upcoming Encounters Date Type Department Care Team (Late st Contact Info) Description 06/15/2024 9:30 AM BASE FILLER Office Visit [address] [address] Xu Prince MD [address] [place] [address] 955494 06/15/2024 2:30 PM BASE FILLER Office Visit [facility] [address] [place] [phone] Andreea Cruz PA-C [address] [place], [place] [id number] 07/21/2024 4:00 PM BASE FILLER Office Visit [facility] [address] [place] [address] [place] [address] [place], [place] [phone] documented as of this encounter Visit Diagnoses Not on filedocumented in this encounter Additional Health Concerns Infection Onset Date Last Indicated Resolved Time MRSA Comment:Added from external infection. Pt has had Staph infections but never MRSA from Care everywhere chart review. Removing MRSA 02.06.23 06/17/2019 02/06/2023 9:41 AM C DT documented as of this encounter Care Teams Section Leader And Machine Setter Relationship Specialty Start Date End Date Ignacia Duran MD PCP - General Pediatrics 01/20/20 03/04/23 [place] [address] [place], [place] [phone] PCP - General 03/05/23 Carlos Joyner MD [address] [place] [address] Urology 12/09/19 Jadon Murray MD [facility] [address] [address] Referring Physician Pediatric Surgery 12/09/19 Maru Villagomez, OTILIO Registered Nurse 12/10/19 Carlos Joyner MD [address] [place], [place] 184775 Assigned Surgical Provider 03/17/20 Ang Slade MD [address] [facility] [address] [place] [address] Urology 04/24/20 Ang Slade MD [address] [facility] [address] [place], [place] 812305 Assigned Surgical Provider 08/13/20 Carlos Joyner MD [address] [place] [address] 323135 Assigned Surgical Provider 12/24/20 Annalise Orta PA-C [address] [place] [address] Assigned Cancer Care Provider 05/13/21 11/01/22 Ang Slade MD [address] [id number] Urology 12/18/22 Lakshmi Wilhelm PA-C [address] [place] [address] [id number] Physician Catering Sous Chef Urology 02/03/23 [place] [address] [place] [address] Assigned PCP 02/06/23 Alissa Perez PA-C [address] [place] [address] Physician Catering Sous Chef Surgery 09/04/23 Lakshmi Wilhelm PA-C [address] [place] [address] Physician Catering Sous Chef Urology 09/16/23 Aidee Valero PA-C [address] [place] [address] Assigned Musculoskeletal Provider 04/17/24 Tanisha Marlow [address] [facility] [address] 03/30/24 documented as of this encounter
--- OUTSIDE RECORDS SUMMARY | 2024-06-10 20:11 | XMS_ITS | Encounter Summary ---
Author Organization [place] Address [address] [place] [address] Care Team Providers Care Forging Press Setter Up Name Role Phone Carlos Joyner MD Unavailable [phone] Jadon Murray MD Unavailable [phone] Maru Villagomez RN Unavailable Unavailable Ignacia Duran MD Primary Care Provider Ang Slade MD Unavailable Carlos Joyner MD Unavailable [phone] Annalise Orta PA-C Unavailable Ang Slade MD Unavailable Lakshmi Wilhelm-C Unavailable [phone] Heladio Willoughby MD Primary Care Provider [phone] Heladio Willoughby MD Unavailable Alissa Perez PA-C Unavailable [phone] Lakshmi Wilhelm-C Unavailable Aiede Valero PA-C Unavailable [phone] Reason for Visit * Reason Onset Date Comments Call Back 06/27/2021 Bladder infectio n Encounter Details Date Type Department Care Team (Late st Contact Info) Description 06/27/2021 Telephone [facility] [address] 4[address] [place] [address] Carlos Joyner MD [address] [place] [address] Call Back (Bladder infection) Social History [...] COVID-19? No / Unsure 06/19/2021 11:16 AM MEDICAL ADMINISTRATIVE SPECIALIST documented as of this encounter Miscellaneous Notes * Telephone Encounter - Karen Sheth - 06/27/2021 12:22 PM CST [facility] Phone Message May a detailed [...] Center ([facility]): uro Travel Screening: Not Applicable CAL ADMINISTRATIVE SPECIALIST documented in this encounter Plan of Treatment Upcoming Encounters Date Type Department Care Team (Late st Contact Info) Description 06/15/2024 9:30 AM MEDICAL ADMINISTRATIVE SPECIALIST Office Visit [address] [address] Xu Prince MD [address] [place] [address] 06/15/2024 2:30 PM MEDICAL ADMINISTRATIVE SPECIALIST Office Visit [facility] [address] [place] [phone] Andreea Cruz PA-C [address] [place] [address] 07/21/2024 4:00 PM MEDICAL ADMINISTRATIVE SPECIALIST Office Visit [facility] [address] [address] [place] [address] [place] [address] [facility] [place] [place] [phone] documented as of this encounter Visit Diagnoses Not on filedocumented in this encounter Additional Health Concerns Infection Onset Date Last Indicated Resolved Time MRSA Comment:Added from external infection. Pt has had Staph infections but never MRSA from Care everywhere chart review. Removing MRSA 02.06.23 06/17/2019 02/06/2023 9:41 AM C DT documented as of this encounter Care Teams Forging Press Setter Up Relationship Specialty Start Date End Date Ignacia Duran MD PCP - General Pediatrics 01/20/20 03/04/23 [place] [address] [address] [place], [place] [phone] PCP - General 03/05/23 Carlos Joyner MD [address] [place] [address] Urology 12/09/19 Jadon Murray MD [facility] [address] [place] [address] Referring Physician Pediatric Surgery 12/09/19 Maru Villagomez, OTILIO Registered Nurse 12/10/19 Agn Slade MD [address] [place] [address] [address] [place] [address] Urology 04/24/20 Carlos Joyner MD [address] [place] [address] Assigned Surgical Provider 12/24/20 Annalise Orta PA-C [address] [place] [address] Assigned Cancer Care Provider 05/13/21 11/01/22 Ang Slade MD [address] [place] [address] 877445 Urology 12/18/22 Lakshmi Wilhelm PA-C [address] [place] [address] 102635 Physician Welding Machine Operator [employer] Urology 02/03/23 [place] [address] [place] [address] Assigned PCP 02/06/23 Alissa Perez PA-C [address] [place] [address] Physician Welding Machine Operator [employer] Surgery 09/04/23 Laksmhi Wilhelm PA-C [address] [place] [address] Physician Welding Machine Operator [employer] Urology 09/16/23 Aidee Valero PA-C [address] [place] [address] Assigned Musculoskeletal Provider 04/17/24 Tanisha Marlow [address] [facility] [address] 03/30/24 documented as of this encounter
[2024-06-10 20:41] VITALS: BP 132/81; PULSE 108; RESP 16; TEMP 36.6; O2SAT 98
--- NOTE | 2024-06-10 23:25 | ED.FEMALEGU ---
HPI - Female Genitourinary General Chief complaint: Urogenital Problems, Female Stated complaint: Needs straight cath Time Seen by Provider: 06/10/24 22:51 History of Present Illness HPI Narrative: This patient is a 23-year-old female with paraplegia a and comes in [facility] for the purpose of getting a straight catheter placed to drain her urine. An attempt at her residence was unsuccessful. She does not have any other needs or complaints for this visit today. Related Data Home Medications ?Medication ?Instructions ?Recorded ?Confirmed oxybutynin chloride 5 mg tablet 5 mg PO BID 07/21/22 06/10/24 indapamide 1.25 mg tablet 1.25 mg PO QAM 10/31/23 06/10/24 potassium chloride 10 mEq 10 meq PO BID 10/31/23 06/10/24 tablet,extended release(part/cryst) Previous Rx's ?Medication ?Instructions ?Recorded ciprofloxacin HCl 500 mg tablet 500 mg PO BID 10 days #20 tabs 05/02/24 (Cipro) ciprofloxacin HCl 500 mg tablet 500 mg PO BID #14 tabs 06/07/24 (Cipro) Allergies Allergy/AdvReac Type Severity Reaction Status Date / Time ibuprofen Allergy Intermediate 1 Kidney Verified 10/31/23 19:52 vancomycin Allergy Intermediate Swapnil Verified 10/31/23 19:52 Syndrome latex Allergy Mild Rash Verified 10/31/23 19:52 Review of Systems Status of ROS: Reports: 10 or more systems reviewed and unremarkable except as noted in History and below Narrative: Constitutional: No fevers, no weight gain or loss. Eyes: No discharge. No vision changes. HENT: No congestion, no sore throat, no ear pain. Cardiovascular: No chest pain, no palpitations. Respiratory: No shortness of breath, no wheezes, no cough. Gastrointestinal: No abdominal pain, no vomiting, no diarrhea. Genitourinary: No dysuria, no hematuria. Musculoskeletal: Paraplegia Skin: No rashes, no pruritis. Pysch: no suicidality, no anxiety, no insomnia. All other systems reviewed and are negative. 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 - Lobulated, fused and horseshoe kidney (ICD-10) Mild intellectual disability ?F70 - Mild intellectual disabilities (ICD-10) Neurogenic bladder ?N31.9 - Neuromuscular dysfunction of bladder, unspecified (ICD-10) COVID-19 ?U07.1 - COVID-19 (ICD-10) Spina bifida ?Q05.9 - Spina bifida, unspecified (ICD-10) Surgical History (Updated 06/07/24 @ 17:19 by Fredo Yoder MD) History of spinal fusion ?Z98.1 - Arthrodesis status (ICD-10) H/O wisdom tooth extraction ?K08.409 - Partial loss of teeth, unspecified cause, unspecified class (ICD-10) Hx of nephrolithotomy with removal of calculi ?Z98.890 - Other specified postprocedural states (ICD-10) ?Z87.442 - Personal history of urinary calculi (ICD-10) 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 ?Z98.2 - Presence of cerebrospinal fluid drainage device (ICD-10) Family History (Updated 04/29/24 @ 02:08 by Jadon Thompson MD) Father Diabetes Mother Bipolar 1 disorder Social History What is your current living situation?: I presently have a place to live Problems where you live: no known problems Problems where you live details: no known problems In the past 12 months, utilities in danger of being shut off: no In past 12 months, lack of transportation kept you from medical appts, meetings, work, or getting things needed for daily living: no In the past 12 mos, have been you worried that your food would run out before you had money to buy more?: never true In the past 12 mos, the food you bought just didn't last and you didn't have money to buy more?: never true Smoking Status: Never smoker Do you use any of these nicotine containing products: None Second hand tobacco smoke exposure: No How often do you have a drink containing alcohol: never AUDIT-C Alcohol total score: 0 Non-prescribed substance use: denies use Caffeine: Yes (Coffee) How often does anyone, including family, friends and others, physically hurt you: never How often does anyone, including family, friends and others, insult or talk down to you: never How often does anyone, including family, friends and others, threaten you with harm: never How often does anyone, including family, friends and others, scream or curse at you: never service: No Exam Narrative: Exam Narrative: Constitutional: Well-developed, well-nourished, no acute distress. HEENT: Normocephalic, atraumatic. Neck: Normal range of motion. Nontender. Supple. Heart: Intact distal pulses. Lungs: No chest discomfort. No wheezes, rhonchi, or rales. Abdomen: Nontender. Back: Normal range of motion. Extremities: No injury Skin: Intact. No rash. Warm. No erythema or pallor. Neurologic: Paraplegia. Alert and oriented. Psychiatric: No suicidality. No anxiety or depression. No insomnia. Nursing notes and vitals signs are reviewed. Const: Vital Signs, click to edit/add: Vital Signs - 24 hr 06/10/24 20:41 Temperature 97.9 F Pulse Rate [Pulse Oximeter] 108 H Respiratory Rate 16 Blood Pressure [Le ft Upper Arm] 132/81 Pulse Oximetry 98 Oxygen Delivery Me thod Room Air Course Vital Signs Vital signs: Initial Vital Signs Temperature 97.9 F 06/10/24 20:41 Temperature Source Temporal Artery Scan 06/10/24 20:41 Pulse Rate 108 H 06/10/24 20:41 Respiratory Rate 16 06/10/24 20:41 Blood Pressure 132/81 06/10/24 20:41 Blood Pressure Mean 98 06/10/24 20:41 Blood Pressure Position Sitting 06/10/24 20:41 Pulse Oximetry 98 06/10/24 20:41 Oxygen Delivery Method Room Air 06/10/24 20:41 Vital Signs Temperature 97.9 F 06/10/24 20:41 Pulse Rate 108 H 06/10/24 20:41 Respiratory Rate 16 06/10/24 20:41 Blood Pressure 132/81 06/10/24 20:41 Pulse Oximetry 98 06/10/24 20:41 Oxygen Delivery Method Room Air 06/10/24 20:41 Temperature 97.9 F 06/10/24 20:41 Pulse Rate 108 H 06/10/24 20:41 Respiratory Rate 16 06/10/24 20:41 Blood Pressure 132/81 06/10/24 20:41 Pulse Oximetry 98 06/10/24 20:41 Oxygen Delivery Method Room Air 06/10/24 20:41 MDM - Female Genitourinary MDM Narrative Medical decision making narrative: This patient needs to have a straight catheter placed in an out in order to drain her bladder. She has paraplegia. Nurses were successful in doing so and she yielded 350 mL of urine. She is okay to be discharged home to resume current plans. Discharge Plan Discharge Clinical Impression: Neurogenic bladder Patient Disposition: Home w/ Parent or Adult Condition: Improved Additional Instructions: Continue current plans. Follow up with MD as needed or return if worsening. Prescriptions: No Action oxybutynin chloride 5 mg tablet 5 mg PO BID indapamide 1.25 mg tablet 1.25 mg PO QAM potassium chloride 10 mEq tablet,ER particles/crystals 10 meq PO BID ciprofloxacin HCl [Cipro] 500 mg tablet 500 mg PO BID Qty: 14 0RF ciprofloxacin HCl [Cipro] 500 mg tablet 500 mg PO BID 10 Days Qty: 20 0RF Follow Up/Referrals: Ignacia Duran MD [Primary Care Provider] - Stand Alone Forms: [email or web address] Info Instructions
--- OUTSIDE RECORDS SUMMARY | 2024-06-10 23:35 | XMS_ITS | Clinical Summary ---
Author Organization [facility] Address [address] [place] [address] Care Team Providers Care Sanitation Officer Name Role Phone Carlos Joyner MD Unavailable [phone] Jadon Murray MD Unavailable [phone] Maru Villagomez RN Unavailable Unavailable Ang Slade MD Unavailable [phone] Carlos Joyner MD Unavailable [phone] Ang Slade MD Unavailable [phone] Lakshmi Wilhelm-C Unavailable Heladio Willoughby MD Primary Care Provider [phone] Heladio Willoughby MD Unavailable Alissa Perez PA-C Unavailable [phone] Lakshmi Wilhelm-C Unavailable Aidee Valero PA-C Unavailable [phone] Allergies Active Allergy Reactions Criticality Noted Date [...] Refill(s), Maintenance, other 03/13/20 Active Wound Dressings ([facility] ALGINATE 2X2) PADSIndications:Pr essure ulcer acquired in [facility] Externally apply 1 each topically [...] Acute cystitis 04/04/2019 Ulcer, surgical 06/07/2011 S/P PLUMBING WAREHOUSE HELPER shunt 04/29/2011 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 (03/14/2020): Vertebra Absence Congenital Kyphosis (acquired) (postural) 08/04/2008 Overview (03/14/2020): Kyphosis Neurogenic bladder 07/22/2003 Overview (03/05/2023): LW Onset: 22Tvd26 ; Paralysis Bladder Neurogenic bowel 07/22/2003 Overview (03/14/2020): LW Onset: 81Jsg09 Paraplegia 07/22/2003 Overview (04/18/2023): 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 07/22/2003 Overview (03/14/2020): LW Onset: ; Short Stature 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/22/2003 Overview (04/16/2023): LW Modifier: shunted LW Onset: 66Ndr60 ; Spina Bifida Lumbar w Hydrocephalus Resolved Problems Problem Noted Date Diagnosed Date Resolved Date Acute kidney failure, unspecified 02/10/2020 03/05/2023 Encounters Date Type Department Care Team Description 04/28/2024 Travel 04/26/2024 Orders Only [facility] [address] [phone] Carlos Joyner MD Recurrent UTI (Primary Dx) 04/26/2024 MyC Medical Advice [facility] [address] [phone] Rosita Velasco RN 04/21/2024 11:45 AM PIPE FITTER APPRENTICE Lab [facility] [address] [place] [phone] Recurrent UTI 04/21/2024 Travel 04/21/2024 Orders Only [facility] [address] [phone] Carlos Joyner MD Recurrent UTI (Primary Dx) 04/21/2024 Telephone [facility] [address] [phone] Carlos Joyner MD Call Back (Pt still having UTI Symptoms. They are wanting to see about getting a new antibiotic. Please call Nurse manager financial at [phone]. Please call Yamini. As they would like to get something done prior to the holiday. Thanks ) 04/21/2024 [facility]phone [facility] [address] [place] [address] Heladio Willoughby MD 04/13/2024 Telephone [facility] [address] [place] [phone] Heladio Willoughby MD Orders 04/13/2024 Documentation Only [facility] [address] [phone] Estrella Martinez NP Forms; Orders (Catheter, lubrication, gloves) 04/12/2024 Medical Correspondence [facility] [address] [place] [address] Scan, Non-Provider 04/01/2024 MyC Medical Advice [facility] [address] [phone] Aidee Valero PA-C 03/30/2024 2:00 PM PIPE FITTER APPRENTICE Office Visit [facility] [address] [phone] Aidee Valero PA-C History of spinal fusion (Primary Dx); Thoracic spina bifida, unspecified hydrocephalus presence (H) 03/30/2024 1:40 PM PIPE FITTER APPRENTICE Ancillary Procedure [facility] Xray [address] [phone] Aidee Valero PA-C Thoracic spina bifida, unspecified hydrocephalus presence (H) 03/30/2024 Telephone [facility] [address] [phone] Aidee Valero PA-C 03/30/2024 Travel 03/30/2024 PRE VISIT [facility] [address] [phone] Aidee Valero PA-C Previsit 03/25/2024 Travel 03/23/2024 Orders Only [facility] [address] [phone] Aidee Valero PA-C Thoracic spina bifida, unspecified hydrocephalus presence (H) (Primary Dx) from Last 3 Months Immunizations Name Administration Dates Next Due DTAP (<7y) 01/18/2008,05/06/2005 DTaP, Unspecified 01/16/2015 DTaP/HepB/IPV 05/27/2003,03/21/2003,2002 Flu, Unspecified 02/26/2016,02/21/2009, 4 L5n9-75 Novel Flu 03/18/2009 A7w8-10 Novel Flu P-free 03/30/2004,05/27/2003 HEPATITIS A (PEDS [...] 61.2 kg (135 lb) 03/30/2024 2:01 PM PIPE FITTER APPRENTICE Height 147.3 cm (4' 10) 03/30/2024 2:01 PM PIPE FITTER APPRENTICE Body Mass Index 28.22 03/30/2024 2:01 PM PIPE FITTER APPRENTICE Plan of Treatment Upcoming Encounters Date Type Department Care Team (Late st Contact Info) Description 06/15/2024 9:30 AM PIPE FITTER APPRENTICE Office Visit [facility] [address] [place] [phone] Xu Prince MD [address] [place] [address] 06/15/2024 2:30 PM PIPE FITTER APPRENTICE [facility] [address] [place] [address] Andreea Cruz PAEarlC [address] [place] [address] 07/21/2024 4:00 PM PIPE FITTER APPRENTICE Office Visit [facility] [address] [place] [address] [place] [address] [place] [address] Health Maintenance Due Date Last [...] this topic Medical Devices Implanted Type Area Web Software Engineer Device Identifier Shelf Expiration Date Model / Serial / Lot Stent Ureteral Percuflex Plus [id number] - [id number] Implanted:Qty: 1 on 11/12/2021 by Carlos Joyner MD at [facility] Stent Right: Abdomen [employer] [id number] 12/26/2022 [id number] Ureteral Catheter 5 [place] Implanted:Qty: 1 on 03/31/2023 by Elizabeth Jacobsen MD at [facility] Right: Ureter 02/02/2026 [id number] / [id number] Description:5 turkmen Uretera l catheter used as a stent in right ureter 5 Tajik Open Ended Catheter Implanted:Qty: 1 on 03/31/2023 by Elizabeth Jacobsen MD at [facility] Left: Ureter 02/19/2026 [id number] / / [id number] Explanted Type Area Web Software Engineer Device Identifier Shelf Expiration Date Model / Serial / Lot Stent Ureteral Percuflex Plus [id number] - [id number] Implanted:Qty: 1 on 05/10/2021 by Carlos Joyner MD at [facility] Explanted:Qty: 1 on 08/09/2021 by Jane Gomez MD at [facility] Stent Right: Urethra [employer] 06/14/2022 [id number] Description:Ureter Stent Ureteral Percuflex Plus [id number] - [id number] Implanted:Qty: 1 on 05/10/2021 by Carlos Joyner MD at [facility] Explanted:Qty: 1 on 08/09/2021 by Jane Gomez MD at [facility] Stent Left: Urethra [employer] 07/25/2022 [id number] Stent Ureteral Percuflex Plus [id number] - [id number] Implanted:Qty: 1 on 08/09/2021 by Jane Gomez MD at [facility] Explanted:Qty: 1 on 11/12/2021 at [facility] Stent Right: Ureter [employer] 02/29/2024 [id number] Stent Ureteral Percuflex Plus [id number] - [id number] Implanted:Qty: 1 on 08/09/2021 by Jane Gomez MD at [facility] Explanted:Qty: 1 on 11/12/2021 at [facility] Stent Right: Ureter [employer] 02/29/2024 [id number] 5 Fr X 22cm Ureteral Stent Explanted:Qty: 1 on 02/07/2020 by Carlos Joyner MD at [facility] COOK 5 Fr X 22cm Ureteral Stent Explanted:Qty: 1 on 02/07/2020 by Carlos Joyner MD at [facility] COOK Procedures Procedure Name Priority Date/Time Associated Diagnosis Comments URINE CULTURE Routine 04/21/2024 10:30 AM PIPE FITTER APPRENTICE Recurrent UTI URINE MICROSCOPIC EXAM Routine 04/21/2024 10:30 AM PIPE FITTER APPRENTICE Recurrent UTI ROUTINE UA WITH MICROSCOPIC Routine 04/21/2024 10:30 AM PIPE FITTER APPRENTICE Recurrent UTI XR SPINE COMPLETE SCOLIOSIS 2 VIEWS Routine 03/30/2024 1:38 PM PIPE FITTER APPRENTICE Thoracic spina bifida, unspecified hydrocephalus presence (H) from Last 3 Months Results * (ABNORMAL) UA with Microscopic (04/21/2024 10:30 AM PIPE FITTER APPRENTICE) Color Urine Yellow Colorless, Straw, Light Yellow, Yellow 04/21/2024 11:45 AM PIPE FITTER APPRENTICE [facility] Appearance Urine Clear Clear 04/21/20 24 11:45 AM PIPE FITTER APPRENTICE [facility] Glucose Urine Negative Negative mg/dL 04/21/2024 11:45 AM PIPE FITTER APPRENTICE [facility] Bilirubin Urine Negative Negative 11:45 AM PIPE FITTER APPRENTICE [facility] Ketones Urine Negative Negative mg/dL 04/21/2024 11:45 AM PIPE FITTER APPRENTICE [facility] Specific [place] Urine 1.020 1.003 - 1.035 04/21/2024 11:45 AM PIPE FITTER APPRENTICE [facility] Blood Urine Negative Negative 04/21/2024 11:45 AM PIPE FITTER APPRENTICE [facility] pH Urine 6.5 5.0 - 7.0 04/21/2024 11:45 AM PIPE FITTER APPRENTICE [facility] Protein Albumin Urine Negative Negative mg/dL 04/21/2024 11:45 AM PIPE FITTER APPRENTICE [facility] Urobilinogen Urine 0.2 0.2, 1.0 E.U./dL 04/21/2024 11:45 AM PIPE FITTER APPRENTICE [facility] Nitrite Urine Positive(A) Negative 04/21/2024 11:45 AM PIPE FITTER APPRENTICE [facility] Leukocyte Esterase Urine Large(A) Negative 04/21/2024 11:45 AM PIPE FITTER APPRENTICE [facility] Urine URINE SPECIMEN OBTAINED BY CLEAN CATCH PROCEDURE / Unknown Non-blood Collection / Unknown 04/21/2024 10:30 AM PIPE FITTER APPRENTICE 04/21/2024 11:40 AM PIPE FITTER APPRENTICE Carlos Joyner MD LAB - URINE ORDERABLES Fin al Result Performing Organization Address City/[facility]/ZIP Co de Phone Number LABORATORY [facility] [address] [facility] (no room number, [facility]) [address] * (ABNORMAL) Urine Microscopic Exam (04/21/2024 10:30 AM PIPE FITTER APPRENTICE) Bacteria Urine Moderate( A) None Seen /HPF LINDA 04/21/2024 11:48 AM PIPE FITTER APPRENTICE LABORATORY RBC Urine 2-5(A) 0-2 /HPF /HPF LINDA 04/21/2024 11:48 AM PIPE FITTER APPRENTICE [facility] WBC Urine 25-50(A) 0-5 /HPF /HPF LINDA 04/21/2024 11:48 AM PIPE FITTER APPRENTICE LABORATORY Squamous Epithelials Urine Few(A) None Seen /LPF LINDA 04/21/2024 11:48 AM PIPE FITTER APPRENTICE [facility] Urine URINE SPECIMEN OBTAINED BY CLEAN CATCH PROCEDURE / Unknown Non-blood Collection / Unknown 04/21/2024 10:30 AM PIPE FITTER APPRENTICE 04/21/2024 11:40 AM PIPE FITTER APPRENTICE Carlos Joyner MD LAB - URINE ORDERABLES Fin al Result Performing Organization Address [facility] de Phone Number LABORATORY [facility] [address] [facility] Lab (no room number, [facility]) [address] * (ABNORMAL) Urine Culture (04/21/2024 10:30 AM PIPE FITTER APPRENTICE) Culture >100,000 CFU/mL Escherichia coli(A) LINDA 04/23/2024 8:04 PM PIPE FITTER APPRENTICE [facility] Culture >100,000 CFU/mL Enterobacter cloacae complex(A) 04/23/2024 8:04 PM PIPE FITTER APPRENTICE [facility] Urine MID-STREAM URINE SPECIMEN / Unknown Non-blood Collection / Unknown 04/21/2024 10:30 AM PIPE FITTER APPRENTICE 04/21/2024 11:40 AM PIPE FITTER APPRENTICE Narrative Organism Antibiotic Method Susceptibility Escherichia coli Ampicillin LINDA <=2 ug/mL: Susceptible Escherichia coli Ampicillin/ Sulbactam LINDA <=2 ug/mL: Susceptible Escherichia coli Piperacillin/Tazobactam ILNDA <=4 ug/mL: Susceptible Escherichia coli Cefazolin LINDA [...] ORDERA BLES Final Result [facility] Inf. Diseases Diag. Lab [address] [facility] [place] [address] * XR Spine Complete Scoliosis 2 Views (03/30/2024 1:38 PM PIPE FITTER APPRENTICE) Anatomical Region Laterality Modality Spine Computed Radiogr aphy Impressions 03/31/2024 1:57 PM PIPE FITTER APPRENTICE Impression: 1. Postoperative changes of T10 through pelvis fusion without evidence of hardware complication. 2. No substantial coronal curvature of the spine. 3. Negative global coronal imbalance. 4. Positive global sagittal imbalance. MILLA CHOI DO Narrative 03/31/2024 1:57 PM PIPE FITTER APPRENTICE Exam: Full spine radiographs using EOS [...] spine. Negative global coronal imbalance. Sagittal Vertical [place] (A vertical line drawn from the center [...] spine. Negative global coronal imbalance. Sagittal Vertical [place] (A vertical line drawn from the center [...] 3 Months Insurance [place] [facility] INDIVIDUAL [facility] [place]DIVIDUAL [place] [facility] INDIVIDUAL [facility] [place]DIV[place]UAL [place] [facility] INDIVIDUAL Advance Directives For more information, please contact: [phone] Documents on File Type Date Recorded Patient Quill Skinner Expl anation Advance Directives and Living Will [...] continue PREVIOUSLY ORDERED code status Care Teams Sanitation Officer Relationship Specialty [place] [address] [place] [address] PCP - General 03/05/23 Carlos Joyner MD [address] [place] [address] Urology 12/09/19 Jadon Murray MD [facility] [address] [facility] [address] [address] Referring Physician Pediatric Surgery 12/09/19 Maru Villagomez, RN Registered Nurse 12/10/19 Ang Slade MD [address] [place] [address] [id number] Urology 04/24/20 Carlos Joyner MD [address] [place] [address] 950975 Assigned Surgical Provider 12/24/20 Ang Slade MD [address] [place] [address] 325555 Urology 12/18/22 Lakshmi Wilhelm PA-C [address] [place] [address] 732805 Physician Hand Roller Engraver Urology 02/03/23 [place] [address] [place] [address] Assigned PCP 02/06/23 Alissa Perez PA-C [address] [place] [address] Physician Hand Roller Engraver Surgery 09/04/23 Lakshmi Wilhelm PA-C [address] [place] [address] Physician Hand Roller Engraver Urology 09/16/23 Aidee Valero PA-C [address] [place] [address] Assigned Musculoskeletal Provider 04/17/24 Tanisha Marlow [address] [facility] [id number] 03/30/24
--- OUTSIDE RECORDS SUMMARY | 2024-06-10 23:35 | XMS_ITS | Clinical Summary ---
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 shunt 04/29/2011 UTI (urinary tract infection) 04/24/2011 Paraplegia 02/21/2009 Spina bifida of dorsal region 02/21/2009 Resolved Problems Problem Noted Date Diagnosed Date Resolved Date Adjustment disorder with mix ed disturbance of emotions and conduct 07/04/2011 11/23/2018 Immunizations Name Administration Dates Next Due DTaP 01/18/2008,05/06/2005 NEkP-NhiP-KKS (Pediarix) 05/27/2003,03/21/2003,0 2002 HIB PRP-T (ActHIB,Hiberix) 05/27/2003,03/21/2003 [...] on file Legal Sex Female 6:29 AM WATCH INSPECTOR FINAL MOVEMENT Gender Identity Not on file Sexual Orientation [...] Comments Blood Pressure 123/80 07/12/2021 1:30 PM WATCH INSPECTOR FINAL MOVEMENT Pulse 98 07/12/2021 1:30 PM WATCH INSPECTOR FINAL MOVEMENT Temperature 36.9 C (98.5 F) 07/12/2021 1:30 PM WATCH INSPECTOR FINAL MOVEMENT Respiratory Rate 18 07/03/2015 5:27 PM WATCH INSPECTOR FINAL MOVEMENT Oxygen Saturation 98% 07/12/2021 1:30 PM WATCH INSPECTOR FINAL MOVEMENT Inhaled Oxygen Concentration - - Weight 61.2 kg (135 lb) 07/03/2015 5:27 PM WATCH INSPECTOR FINAL MOVEMENT Height - - Body Mass Index - [...] age 11-21 Completed 06/17/2019, 01/16/2015 Insurance MEDICAID [facility] MEDICARE PART A HB ONLY MEDICARE PART B HB ONLY MEDICARE PB ONLY MEDICAID [id number] [place] [address] Advance Directives Documents on File Type Date Recorded Patient Supervisor Filling And Packing Expl anation Power of Sash Installer 06/24/2023 1:00 PM Care Teams Plant Scientist Relationship Specialty Start Date End Date Ignacia Duran MD PCP - General Pediatric 10/07/19
--- OUTSIDE RECORDS SUMMARY | 2024-06-10 23:36 | XMS_ITS | Encounter Summary ---
Author Organization [facility] Address [address] [place] [address] Care Team Providers Care Side Hemmer Name Role Phone Carlos Joyner MD Unavailable [phone] Jadon Murray MD Unavailable [phone] Maru Villagomez RN Unavailable Unavailable Ignacia Duran MD Primary Care Provider [phone] Ang Slade MD Unavailable [phone] Carlos Joyner MD Unavailable [phone] Annalise Orta PA-C Unavailable [phone] Ang Slade MD Unavailable [phone] Lakshmi Wilhelm-C Unavailable [phone] Heladio Willoughby MD Primary Care Provider Heladio Willoughby MD Unavailable Alissa Perez PA-C Unavailable [phone] Lakshmi Wilhelm PA-C Unavailable [phone] Aidee Valero PA-C Unavailable [phone] Reason for Visit * Reason Onset Date Comments Orders 01/01/2022 Syringes - 35 an d 60 ml requested Encounter Details Date Type Department Care Team (Late st Contact Info) Description 01/01/2022 Telephone [facility] [address] [place] [address] Carlos Joyner MD [address] [place] [address] Orders (Syringes - 35 and 60 ml [...] order to [facility] at [phone]. Thank you. Action Taken: Other: Urology Travel Screening: Not Applicable documented in this encounter Plan of Treatment Upcoming Encounters Date Type Department Care Team (Late st Contact Info) Description 06/15/2024 9:30 AM ADJUNCT FACULTY FOR MEDICAL TERMINOLOGY Office Visit [facility] [address] [place] [phone] Xu Prince MD [address] [phone] 06/15/2024 2:30 PM ADJUNCT FACULTY FOR MEDICAL TERMINOLOGY Office Visit [facility] [address] [place] [address] Andreea Cruz PA-C [address] [place] [address] 07/21/2024 4:00 PM ADJUNCT FACULTY FOR MEDICAL TERMINOLOGY Office Visit [facility] [address] [place] [address] [place] [address] [place] [address] documented as of this encounter Visit Diagnoses Not on filedocumented in this encounter Additional Health Concerns Infection Onset Date Last Indicated Resolved Time MRSA Comment:Added from external infection. Pt has had Staph infections but never MRSA from Care everywhere chart review. Removing MRSA 02.06.23 06/17/2019 02/06/2023 9:41 AM C DT documented as of this encounter Care Teams Side Hemmer Relationship Specialty Start Date End Date Ignacia Duran MD PCP - General Pediatrics 01/20/20 03/04/23 [place] [address] [place] [address] PCP - General 03/05/23 Carlos Joyner MD [address] [place] [address] Urology 12/09/19 Jadon Murray MD [facility] [address] [facility] [address] [address] Referring Physician Pediatric Surgery 12/09/19 Maru Villagomez, OTILIO Registered Nurse 12/10/19 Ang Slade MD [address] [place] [address] 104545 Urology 04/24/20 Carlos Joyner MD [address] [place] [address] 885885 Assigned Surgical Provider 12/24/20 Annalise Orta PA-C [address] [place] [address] Assigned Cancer Care Provider 05/13/21 11/01/22 Ang Slade MD [address] [place] [address] 022615 Urology 12/18/22 Lakshmi Wilhelm PA-C [address] [place] [address] 669485 Physician Housetrailer Servicer Urology 02/03/23 [place] [address] [place] [address] Assigned PCP 02/06/23 Alissa Perez PA-C [address] [place] [address] Physician Housetrailer Servicer Surgery 09/04/23 Lakshmi Wilhelm PA-C [address] [place] [address] Physician Housetrailer Servicer Urology 09/16/23 Aidee Valero PA-C [address] [place] [address] Assigned Musculoskeletal Provider 04/17/24 Tanisha Marlow [facility] [address] 03/30/24 documented as of this encounter
--- OUTSIDE RECORDS SUMMARY | 2024-06-10 23:36 | XMS_ITS | Referral Summary ---
Author Organization [facility] Address [address] [place] [address] Care Team Providers Care Cotton Inspector Name Role Phone Carlos Joyner MD Unavailable [phone] Jadon Murray MD Unavailable [phone] Maru Villagomez RN Unavailable Unavailable Ang Slade MD Unavailable [phone] Carlos Joyner MD Unavailable [phone] Ang Slade MD Unavailable [phone] Lakshmi Wilhelm PA-C Unavailable [phone] Heladio Willoughby MD Primary Care Provider [phone] Heladio Willoughby MD Unavailable Alissa Perez PA-C Unavailable [phone] Lakshmi Wilhelm PA-C Unavailable Aidee Valero PA-C Unavailable Encounters Date Type Department Care Team Description 04/28/2024 Travel 04/26/2024 Orders Only [facility] Urology [address] [place] [address] Carlos Joyner MD Recurrent UTI (Primary Dx) 04/26/2024 MyC Medical Advice [facility] Urology [address] [place] [address] Rosita Velasco RN 04/21/2024 Travel 04/21/2024 11:45 AM HYDRAULIC DREDGE OPERATOR Lab [facility] [address] [place] [address] Recurrent UTI 04/21/2024 Orders Only [facility] Urology [address] [phone] Carlos Joyner MD Recurrent UTI (Primary Dx) 04/21/2024 Telephone [facility] [address] [address] Carlos Joyner MD Call Back (Pt still having UTI Symptoms. They are wanting to see about getting a new antibiotic. Please call Nurse manager of medical at [phone]. Please call Yamini. As they would like to get something done prior to the holiday. Thanks ) 04/21/2024 Telephone [facility] [address] [place] [address] Heladio Willoughby MD 04/13/2024 Telephone [facility] [address] [place] [address] Heladio Willoughby MD Orders 04/13/2024 Documentation Only [facility] Urology [address] [phone] Estrella Martinez NP Forms; Orders (Catheter, lubrication, gloves) 04/12/2024 Medical Correspondence [facility] Health Information Management [address] [place] [address] Scan, Non-Provider 04/01/2024 MyC Medical Advice [facility] Orthopedic [address] [phone] Aidee Valero PA-C 03/30/2024 Telephone [facility] Orthopedic [address] [phone] Aidee Valero PA-C 03/30/2024 Travel 03/30/2024 PRE VISIT [facility] Clinic [address] [phone] Aidee Valero PA-C Previsit 03/30/2024 1:40 PM HYDRAULIC DREDGE OPERATOR Ancillary Procedure [facility] Xray [address] [phone] Aidee Valero PA-C Thoracic spina bifida, unspecified hydrocephalus presence (H) 03/30/2024 2:00 PM HYDRAULIC DREDGE OPERATOR Office Visit [facility] [address] [phone] Aidee Valero PA-C History of spinal fusion (Primary Dx); Thoracic spina bifida, unspecified hydrocephalus presence (H) 03/25/2024 Travel 03/23/2024 Orders Only [facility] Orthopedic [address] [phone] Aidee Valero PA-C Thoracic spina bifida, unspecified [...] Refill(s), Maintenance, other 03/13/20 Active Wound Dressings ([facility] ALGINATE 2X2) PADSIndications:Pr essure ulcer acquired in [facility] Externally apply 1 each [...] Acute cystitis 04/04/2019 Ulcer, surgical 06/07/2011 S/P METAL SPRAY OPERATOR shunt 04/29/2011 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 (03/14/2020): Vertebra Absence Congenital Kyphosis (acquired) (postural) 08/04/2008 Overview (03/14/2020): Kyphosis Neurogenic bladder 07/22/2003 Overview (03/05/2023): LW Onset: 33Hox34 ; Paralysis Bladder Neurogenic bowel 07/22/2003 Overview (03/14/2020): LW Onset: 11Kre64 Paraplegia 07/22/2003 Overview (04/18/2023): 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 07/22/2003 Overview (03/14/2020): LW Onset: 05Sqc13 ; Short Stature 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/22/2003 Overview (04/16/2023): LW Modifier: shunted LW Onset: 66Qfm57 ; Spina Bifida Lumbar w Hydrocephalus Resolved Problems Problem Noted Date Diagnosed Date Resolved Date Acute kidney failure, unspecified 02/10/2020 03/05/2023 Immunizations Name Administration Dates Next Due DTAP (<7y) 01/18/2008,05/06/2005 DTaP, Unspecified 01/16/2015 DTaP/HepB/IPV 05/27/2003,03/21/2003,2002 Flu, Unspecified 02/26/2016,02/21/2009, 4 [id number] Novel Flu 03/18/2009 [id number] Novel Flu P-free 03/30/2004,05/27/2003 HEPATITIS A (PEDS [...] 61.2 kg (135 lb) 03/30/2024 2:01 PM HYDRAULIC DREDGE OPERATOR Height 147.3 cm (4' 10) 03/30/2024 2:01 PM HYDRAULIC DREDGE OPERATOR Body Mass Index 28.22 03/30/2024 2:01 PM HYDRAULIC DREDGE OPERATOR Plan of Treatment Upcoming Encounters Date Type Department Care Team (Late st Contact Info) Description 06/15/2024 9:30 AM HYDRAULIC DREDGE OPERATOR Office Visit [facility] [place] [address] [facility] [place] [phone] Xu Prince MD [address] [place] [address] 06/15/2024 2:30 PM HYDRAULIC DREDGE OPERATOR [facility] [address] [place] [address] Andreea Cruz PA-C [address] [place] [address] 07/21/2024 4:00 PM HYDRAULIC DREDGE OPERATOR [facility] [address] [place] [address] [place] [address] [place] [address] Medical Devices Implanted Type Area Resolution Rep Device Identifier Shelf Expiration Date Model / Serial / Lot Stent Ureteral Percuflex Plus [id number] - [id number] Implanted:Qty: 1 on 11/12/2021 by Carlos Joyner MD at [facility] Stent Right: Abdomen [employer] [id number] 12/26/2022 [id number] Ureteral Catheter 5 Spanish Implanted:Qty: 1 on 03/31/2023 by Elizabeth Jacobsen MD at [facility] Right: Ureter 02/02/2026 [id number] Description:5 estonian Uretera l catheter used as a stent in right ureter 5 Spanish Open Ended Catheter Implanted:Qty: 1 on 03/31/2023 by Elizabeth Jacobsen MD at [facility] Left: Ureter 02/19/2026 [id number] / [id number] Explanted Type Area Resolution Rep Device Identifier Shelf Expiration Date Model / Serial / Lot Stent Ureteral Percuflex Plus [id number] - [id number] Implanted:Qty: 1 on 05/10/2021 by Carlos Joyner MD at [facility] Explanted:Qty: 1 on 08/09/2021 by Jane Gomez MD at [facility] Stent Right: Urethra [employer] 06/14/2022 [id number] Description:Ureter Stent Ureteral Percuflex Plus [id number] - [id number] Implanted:Qty: 1 on 05/10/2021 by Carlos Joyner MD at [facility] Explanted:Qty: 1 on 08/09/2021 by Jane Gomez MD at [facility] Stent Left: Urethra [employer] 07/25/2022 [id number] Stent Ureteral Percuflex Plus [id number] - [id number] Implanted:Qty: 1 on 08/09/2021 by Jane Gomez MD at [facility] Explanted:Qty: 1 on 11/12/2021 at [facility] Stent Right: Ureter [employer] 02/29/2024 [id number] Stent Ureteral Percuflex Plus [id number] - [id number] Implanted:Qty: 1 on 08/09/2021 by Jane Gomez MD at [facility] Explanted:Qty: 1 on 11/12/2021 at [facility] Stent Right: Ureter [employer] 02/29/2024 [id number] 5 Fr X 22cm Ureteral Stent Explanted:Qty: 1 on 02/07/2020 by Carlos Joyner MD at [facility] COOK 5 Fr X 22cm Ureteral Stent Explanted:Qty: 1 on 02/07/2020 by Carlos Joyner MD at [facility] COOK Procedures Procedure Name Priority Date/Time Associated Diagnosis Comments URINE CULTURE Routine 04/21/2024 10:30 AM HYDRAULIC DREDGE OPERATOR Recurrent UTI URINE MICROSCOPIC EXAM Routine 04/21/2024 10:30 AM HYDRAULIC DREDGE OPERATOR Recurrent UTI ROUTINE UA WITH MICROSCOPIC Routine 04/21/2024 10:30 AM HYDRAULIC DREDGE OPERATOR Recurrent UTI XR SPINE COMPLETE SCOLIOSIS 2 VIEWS Routine 03/30/2024 1:38 PM HYDRAULIC DREDGE OPERATOR Thoracic spina bifida, unspecified hydrocephalus presence (H) from Last 3 Months Results * (ABNORMAL) UA with Microscopic (04/21/2024 10:30 AM HYDRAULIC DREDGE OPERATOR) Color Urine Yellow Colorless, Straw, Light Yellow, Yellow 04/21/2024 11:45 AM HYDRAULIC DREDGE OPERATOR [facility] Appearance Urine Clear Clear 04/21/20 11:45 AM HYDRAULIC DREDGE OPERATOR [facility] Glucose Urine Negative Negative mg/dL 04/21/2024 11:45 AM HYDRAULIC DREDGE OPERATOR [facility] Bilirubin Urine Negative Negative 11:45 AM HYDRAULIC DREDGE OPERATOR [facility] Ketones Urine Negative Negative mg/dL 04/21/2024 11:45 AM HYDRAULIC DREDGE OPERATOR [facility] Specific Ross Urine 1.020 1.003 - 1.035 04/21/2024 11:45 AM HYDRAULIC DREDGE OPERATOR [facility] Blood Urine Negative Negative 04/21/2024 11:45 AM HYDRAULIC DREDGE OPERATOR [facility] pH Urine 6.5 5.0 - 7.0 04/21/2024 11:45 AM HYDRAULIC DREDGE OPERATOR [facility] Protein Albumin Urine Negative Negative mg/dL 04/21/2024 11:45 AM HYDRAULIC DREDGE OPERATOR [facility] Urobilinogen Urine 0.2 0.2, 1.0 E.U./dL 04/21/2024 11:45 AM HYDRAULIC DREDGE OPERATOR [facility] Nitrite Urine Positive(A) Negative 04/21/2024 11:45 AM HYDRAULIC DREDGE OPERATOR [facility] Leukocyte Esterase Urine Large(A) Negative 04/21/2024 11:45 AM HYDRAULIC DREDGE OPERATOR LABORATORY Urine URINE SPECIMEN OBTAINED BY CLEAN CATCH PROCEDURE / Unknown Non-blood Collection / Unknown 04/21/2024 10:30 AM HYDRAULIC DREDGE OPERATOR 04/21/2024 11:40 AM HYDRAULIC DREDGE OPERATOR Carlos Joyner MD LAB - URINE ORDERABLES Fin al Result Performing Organization Address [facility] Co de Phone Number LABORATORY [facility] Lab [address] [place] [address] Lab (no room number, 1st floor of [facility]) [address] * (ABNORMAL) Urine Microscopic Exam (04/21/2024 10:30 AM HYDRAULIC DREDGE OPERATOR) Bacteria Urine Moderate( A) None Seen /HPF LINDA 04/21/2024 11:48 AM HYDRAULIC DREDGE OPERATOR LABORATORY RBC Urine 2-5(A) 0-2 /HPF /HPF LINDA 04/21/2024 11:48 AM HYDRAULIC DREDGE OPERATOR LABORATORY WBC Urine 25-50(A) 0-5 /HPF /HPF LINDA 04/21/2024 11:48 AM HYDRAULIC DREDGE OPERATOR LABORATORY Squamous Epithelials Urine Few(A) None Seen /LPF LINDA 04/21/2024 11:48 AM HYDRAULIC DREDGE OPERATOR LABORATORY Urine URINE SPECIMEN OBTAINED BY CLEAN CATCH PROCEDURE / Unknown Non-blood Collection / Unknown 04/21/2024 10:30 AM HYDRAULIC DREDGE OPERATOR 04/21/2024 11:40 AM HYDRAULIC DREDGE OPERATOR Carlos Joyner MD LAB - URINE ORDERABLES Fin al Result Performing Organization Address City/[facility] de Phone Number LABORATORY [facility] Lab [address] [place] [address] Lab (no room number, 1st floor of [facility]) [address] * (ABNORMAL) Urine Culture (04/21/2024 10:30 AM HYDRAULIC DREDGE OPERATOR) Culture >100,000 CFU/mL Escherichia coli(A) LINDA 04/23/2024 8:04 PM HYDRAULIC DREDGE OPERATOR [facility] Culture >100,000 CFU/mL Enterobacter cloacae complex(A) 04/23/2024 8:04 PM HYDRAULIC DREDGE OPERATOR [facility] Urine MID-STREAM URINE SPECIMEN / Unknown Non-blood Collection / Unknown 04/21/2024 10:30 AM HYDRAULIC DREDGE OPERATOR 04/21/2024 11:40 AM HYDRAULIC DREDGE OPERATOR Narrative Organism Antibiotic Method Susceptibility Escherichia [...] ORDERA BLES Final Result [facility] Inf. Diseases Diag. Lab [address] [facility], [address] [place] [address] * XR Spine Complete Scoliosis 2 Views (03/30/2024 1:38 PM HYDRAULIC DREDGE OPERATOR) Anatomical Region Laterality Modality Spine Computed Radiogr aphy Impressions 03/31/2024 1:57 PM HYDRAULIC DREDGE OPERATOR Impression: 1. Postoperative changes of T10 through pelvis fusion without evidence of hardware complication. 2. No substantial coronal curvature of the spine. 3. Negative global coronal imbalance. 4. Positive global sagittal imbalance. MILLA CHOI DO Narrative 03/31/2024 1:57 PM HYDRAULIC DREDGE OPERATOR Exam: Full spine radiographs using EOS [...] spine. Negative global coronal imbalance. Sagittal Vertical [place] (A vertical line drawn from the center [...] spine. Negative global coronal imbalance. 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 Expl anation Advance Directives and Living Will [...] continue PREVIOUSLY ORDERED code status Care Teams Cotton Inspector Relationship Specialty [place] [address] [address] [place] [place], [place] [phone] PCP - General 03/05/23 Carlos Joyner MD [address] [place] [address] 822875 Urology 12/09/19 Jadon Murray MD [facility] [address] [facility] [address] [place], [place] [phone] Referring Physician Pediatric Surgery 12/09/19 Maru Villagomez, RN Registered Nurse 12/10/19 Ang Slade MD [address] [place] [address] [address] [place], [place] 804605 Urology 04/24/20 Carlos Joyner MD [address] [place] [address] 188625 Assigned Surgical Provider 12/24/20 Ang Slade MD [address] [place] [address] [address] [place] [address] Urology 12/18/22 Lakshmi Wilhelm PA-C [address] [place] [address] 854375 Physician Radio Performer Urology 02/03/23 [place] [address] [place] [address] Assigned PCP 02/06/23 Alissa Perez PA-C [address] [place] [address] 153805 Physician Radio Performer Surgery 09/04/23 Lakshmi Wilhelm PA-C [address] [place] [address] 012155 Physician Radio Performer Urology 09/16/23 Aidee Valero PA-C [address] [place] [address] 942665 Assigned Musculoskeletal Provider 04/17/24 Tanisha Marlow [address] [facility] [address] 03/30/24
--- OUTSIDE RECORDS SUMMARY | 2024-06-10 23:36 | XMS_ITS | Encounter Summary ---
Author Organization [facility] Address [address] [place] [address] Care Team Providers Care Button Tacker Name Role Phone Carlos Joyner MD Unavailable [phone] Jadon Murray MD Unavailable [phone] Maru Villagomez RN Unavailable Unavailable Ang Slade MD Unavailable [phone] Carlos Joyner MD Unavailable [phone] Ang Slade MD Unavailable [phone] Lakshmi Wilhelm-C Unavailable [phone] Heladio Willoughby MD Primary Care Provider Heladio Willoughby MD Unavailable Alissa Perez PA-C Unavailable [phone] Lakshmi Wilhelm-C Unavailable [phone] Aidee Valero PA-C Unavailable [phone] Reason for Visit * Reason Onset Date Comments Call Back 04/21/2024 Pt still having UTI Symptoms. They are wanting to see about getting a new antibiotic. Please call Nurse dental office manager at [phone]. Please call Yamini. As they would like to get something done prior to the holiday. Thanks Encounter Details Date Type Department Care Team ([facility] st Contact Info) Description 04/21/2024 Telephone [facility] Clinic [address] 4th [place] [address] Carlos Joyner MD [address] [place] [address] Call Back (Pt still having UTI Symptoms. They are wanting to see about getting a new antibiotic. Please call Nurse dental office manager at [phone]. Please call Yamini. As they would like [...] getting a new antibiotic. Please call Nurse dental office manager at [phone]. Please call Yamini. As they would like to get something done prior to the holiday. Thanks Action Taken: Other: uro Travel Screening: Not Applicable Date of Service: UNTING CLERKS SUPERVISOR documented in this encounter Plan of Treatment Upcoming Encounters Date Type Department Care Team (Late st Contact Info) Description 06/15/2024 9:30 AM ACCOUNTING CLERKS SUPERVISOR Office Visit [address] [phone] Xu Prince MD [address] [place] [address] 777724 06/15/2024 2:30 PM ACCOUNTING CLERKS SUPERVISOR Office Visit [facility] [address] [place] [address] Andreea Cruz PA-C [address] [place] [address] 07/21/2024 4:00 PM ACCOUNTING CLERKS SUPERVISOR Office Visit [facility] [address] [place] [address] [place] [address] [place], [place] [phone] documented as of this encounter Visit Diagnoses Not on filedocumented in this encounter Care Teams Button Tacker Relationship Specialty Start [place] [address] [place], [place] [phone] PCP - General 03/05/23 Carlos Joyner MD [address] [place] [address] 426775 Urology 12/09/19 Jadon Murray MD [facility] [address] [facility] 550 [place] [address] Referring Physician Pediatric Surgery 12/09/19 Maru Villagomez, RN Registered Nurse 12/10/19 Ang Slade MD [address] [facility] 394 [place], [place] 393785 Urology 04/24/20 Carlos Joyner MD [address] [place] [address] 041365 Assigned Surgical Provider 12/24/20 Ang Slade MD [address] [facility] 394 [place], [place] 235045 Urology 12/18/22 Lakshmi Wilhelm PA-C [address] [place] [address] 983595 Physician Net Developer Urology 02/03/23 [place] [address] [place] [address] Assigned PCP 02/06/23 Alissa Perez PA-C [address] [place] [address] 366735 Physician Net Developer Surgery 09/04/23 Lakshmi Wilhelm PA-C [address] [place] [address] Physician Net Developer Urology 09/16/23 Aidee Valero, [facility] [address] [place] [address] Assigned Musculoskeletal Provider 04/17/24 Tanisha Marlow [address] [facility] [address] 03/30/24 documented as of this encounter
--- OUTSIDE RECORDS SUMMARY | 2024-06-10 23:36 | XMS_ITS | Encounter Summary ---
Author Organization [facility] Address [address] [place] [address]. [place] [address] Care Team Providers Care Ironmolder Name Role Phone Carlos Joyner MD Unavailable [phone] Jadon Murray MD Unavailable [phone] Maru Villagomez RN Unavailable Unavailable Ang Slade MD Unavailable [phone] Carlos Joyner MD Unavailable [phone] Ang Slade MD Unavailable [phone] Lakshmi Wilhelm PA-C Unavailable [phone] Heladio Willoughby MD Primary Care Provider [phone] Heladio Willoughby MD Unavailable Alissa Perez PA-C Unavailable [phone] Lakshmi Wilheml PA-C Unavailable [phone] Aidee Valero PA-C Unavailable [phone] Encounter Details Date Type Department Care Team (Late st Contact Info) Description 04/08/2023 [facility] Medical Advice [facility] Clinic [address] 4th [place] [address] Rosita Velasco, RN Social History [...] st Contact Info) Description 06/15/2024 9:30 AM PROCTOLOGIST Office Visit [address] [address] Xu Prince MD [address] [place] [address] 772154 06/15/2024 2:30 PM PROCTOLOGIST Office Visit [facility] [address] [place] [phone] Andreea Cruz PA-C [address] [place], [place] [phone] 07/21/2024 4:00 PM PROCTOLOGIST Office [facility] [address] [address] [place] [phone] [place] [address] [address] [place] [phone] documented as of this encounter Visit Diagnoses Not on filedocumented in this encounter Care Teams Ironmolder Relationship Specialty Start [place] [address] [address] [phone] PCP - General 03/05/23 Carlos Joyner MD [address] [place] [address] Urology 12/09/19 Jadon Murray MD [facility] 25[address] [facility] 550 [place] [address] Referring Physician Pediatric Surgery 12/09/19 Maru Villagomez, OTILIO Registered Nurse 12/10/19 Ang Slade MD [address] [place] [address] Urology 04/24/20 Carlos Joyner MD [address] [place] [address] Assigned Surgical Provider 12/24/20 Ang Slade MD [address] [address] Urology 12/18/22 Lakshmi Wilhelm PA-C [address] [place] [address] Physician Barge Engineer Urology 02/03/23 [place] [address] [place] [address] Assigned PCP 02/06/23 Alissa Perez PA-C [address] [place] [address] Physician Barge Engineer Surgery 09/04/23 Lakshmi Wilhelm PA-C [address] [place] [address] Physician Barge Engineer Urology 09/16/23 Aidee Valero PA-C [address] [place] [address] Assigned Musculoskeletal Provider 04/17/24 Tanisha Marlow 4[address] [facility] [address] 03/30/24 documented as of this encounter
--- OUTSIDE RECORDS SUMMARY | 2024-06-10 23:36 | XMS_ITS | Encounter Summary ---
Author Organization [place] Address [address] [place] [address] Care Team Providers Care Dry Mop Maker Name Role Phone Carlos Joyner MD Unavailable [phone] Jadon Murray MD Unavailable [phone] Maru Villagomez RN Unavailable Unavailable Ang Slade MD Unavailable +[phone] Carlos Joyner MD Unavailable [phone] Ang Slade MD Unavailable [phone] Lakshmi WilhelmC Unavailable [phone] Heladio Willoughby MD Primary Care Provider [phone] Heladio Willoughby MD Unavailable Alissa Perez PA-C Unavailable [phone] Lakshmi WilhelmC Unavailable [phone] Aidee ValeroC Unavailable +[phone] Encounter Details Date Type Department Care Team (Late st Contact Info) Description 03/30/2024 Telephone [facility] [address] 4th [place] [address] Aidee Valero PA-C [address] [place] [address] Social History Tobacco Use Types Packs/Day [...] Natalie Abdullahi - 03/30/2024 3:23 PM CST [facility] Call Center Phone Message May a detailed message be left on voicemail: yes Reason for Call: Other: Anna is calling from Medical Records at [facility]. She is calling as she wants to know the time frame of records that are being requested? Action Taken: Other: te Travel Screening: Not Applicable Date of Service: RANCE ACCOUNT MANAGER documented in this encounter Plan of Treatment Upcoming Encounters Date Type Department Care Team (Late st Contact Info) Description 06/15/2024 9:30 AM INSURANCE ACCOUNT MANAGER Office Visit [facility] [address] [place] [address] Xu Prince MD 606 24[facility] 106 [place], [place] [address] 06/15/2024 2:30 PM INSURANCE ACCOUNT MANAGER [facility] [address] [place] [address] Andreea Cruz PA-C [address] [place] [address] 07/21/2024 4:00 PM INSURANCE ACCOUNT MANAGER [facility] [address] [place] [address] [place] [address] [place] [address] documented as of this encounter Visit Diagnoses Not on filedocumented in this encounter Care Teams Dry Mop Maker Relationship Specialty Start Date End [place] [address] [place] [address] PCP - General 03/05/23 Cralos Joyner MD [address] [place] [address] 787915 Urology 12/09/19 Jadon Murray MD [facility] 2530 [facility] 550 [place], [place] [id number] Referring Physician Pediatric Surgery 12/09/19 Maru Villagomez, RN Registered Nurse 12/10/19 Ang Slade MD [address] [place] [address] 394 [place] [address] Urology 04/24/20 Carlos Joyner MD [address] [place] [address] 94493 Assigned Surgical Provider 12/24/20 Ang Slade MD [address] [place] [address] 616[address] Urology 12/18/22 Lakshmi Wilhelm PA-C [address] [place] [address] 6[address]26 Physician Video Camera Operator Urology 02/03/23 [place] [address] [place] [address] Assigned PCP 02/06/23 Alissa Perez PA-C [address] [place] [address] 606785 Physician Video Camera Operator Surgery 09/04/23 Lakshmi Wilhelm PA-C [address] [place] [address] 455785 Physician Video Camera Operator Urology 09/16/23 Aidee Valero PA-C [address] [place] [address] 586635 Assigned Musculoskeletal Provider 04/17/24 Tanisha Marlow 4120 [facility] [address] 03/30/24 documented as of this encounter
--- OUTSIDE RECORDS SUMMARY | 2024-06-10 23:36 | XMS_ITS | Encounter Summary ---
Author Organization [place] Address [address] [place] [address] Care Team Providers Care Assistant County Engineer Name Role Phone Carlos Joyner MD Unavailable [phone] Jadon Murray MD Unavailable [phone] Maru Villagomez RN Unavailable Unavailable Ang Slade MD Unavailable +[phone] Carlos Joyner MD Unavailable +[phone] Ang Slade MD Unavailable [phone] Lakshmi Wilhelm-C Unavailable +[phone] Heladio Willoughby MD Primary Care Provider [phone] Heladio Willoughby MD Unavailable Alissa Perez PA-C Unavailable [phone] Lakshmi Wilhelm-C Unavailable [phone] Aidee Valero PA-C Unavailable [phone] Encounter Details Date Type Department Care Team (Late st Contact Info) Description 07/01/2023 [facility] [address] [place] [address] Joao Arceo MA Social History Tobacco [...] st Contact Info) Description 06/15/2024 9:30 AM COMPOSITION MIXER Office Visit [address] [address] Xu Prince MD 60[facility] [address] 827864 06/15/2024 2:30 PM COMPOSITION MIXER Office Visit [facility] [address] [place] [address] Andreea Cruz PAYuki [address] [place], [place] 6712868 07/21/2024 4:00 PM COMPOSITION MIXER Office [facility] [place] [address] [address] [place] [phone] [place] [address] [place] [address] documented as of this encounter Visit Diagnoses Not on filedocumented in this encounter Care Teams Assistant County Engineer Relationship Specialty [place] [address] [address] [id number] PCP - General 03/05/23 Carlos Joyner MD [address] [place] [address] Urology 12/09/19 Jadon Murray MD [facility] 2530 550 [place] [address] Referring Physician Pediatric Surgery 12/09/19 Maru Villagomez, OTILIO Registered Nurse 12/10/19 Ang Slade MD [address] [place] [address] 225975 Urology 04/24/20 Carlos Joyner MD [address] [place] [address] 11245 Assigned Surgical Provider 12/24/20 Ang Slade MD [address] [address] Urology 12/18/22 Lakshmi Wilhelm PA-C 909 [place] [address] Physician Literacy Tutor Urology 02/03/23 [place] [address] [place] [address] Assigned PCP 02/06/23 Alissa Perez PA-C [address] [place] [address] Physician Literacy Tutor Surgery 09/04/23 Lakshmi Wilhelm PA-C [address] [place] [address] Physician Literacy Tutor Urology 09/16/23 Aidee Valero PA-C [address] [place] [address] 46[address] Assigned Musculoskeletal Provider 04/17/24 Tanisha Marlow 4120 [facility] [address] 03/30/24 documented as of this encounter
--- OUTSIDE RECORDS SUMMARY | 2024-06-10 23:36 | XMS_ITS | Encounter Summary ---
Author Organization [facility] Address [address] [place] [address] Care Team Providers Care Therapist Physical Name Role Phone Carlos Joyner MD Unavailable [phone] Jadon Murray MD Unavailable [phone] Maru Villagomez RN Unavailable Unavailable Ang Slade MD Unavailable [phone] Carlos Joyner MD Unavailable [phone] Ang Slade MD Unavailable Lakshmi Wilhelm-C Unavailable Heladio Willoughby MD Primary Care Provider [phone] Heladio Willoughby MD Unavailable Alissa Perez PA-C Unavailable [phone] Lakshmi Wilhelm-C Unavailable Aidee Valero PA-C Unavailable [phone] Encounter Details Date Type Department Care Team (Late st Contact Info) Description 04/26/2024 [facility] [address] 4th [place] [address] Carlos Joyner MD [address] [place] [address] Recurrent UTI (Primary Dx) Social History [...] UTI and antibiotic being sent to the [facility] in [place]. She voices understanding. Thank you, Hattie Wing RN, BSN Urology Triage Nurse EY KNITTER documented in this encounter Plan of Treatment Upcoming Encounters Date Type Department Care Team (Late st Contact Info) Description 06/15/2024 9:30 AM JERSEY KNITTER Office Visit [address] [phone] Xu Prince MD 606 24[facility] 106 [place], [place] 728214 06/15/2024 2:30 PM JERSEY KNITTER Office Visit [facility] [address] [place] [address] Andreea Cruz PA-C [address] [place] [address] 07/21/2024 4:00 PM JERSEY KNITTER Office Visit [facility] [address] [place] [address] [place] [address] [place] [address] documented as of this encounter Visit Diagnoses Diagnosis Recurrent UTI- Primary Urinary tract infection, site not specified documented in this encounter Care Teams Therapist Physical Relationship Specialty Start Date [place]ad[place] [address] [place] [address] PCP - General 03/05/23 Carlos Joyner MD 9 [place] [address] Urology 12/09/19 Jadon Murray MD [facility] 2530 [facility] 550 [place], [place] [phone] Referring Physician Pediatric Surgery 12/09/19 Maru Villagomez, RN Registered Nurse 12/10/19 Ang Slade MD [address] [place] [address] 394 [place], [place] 50784455 Urology 04/24/20 Carlos Joyner MD [address] [place] [address] 197605 Assigned Surgical Provider 12/24/20 Ang Slade MD [address] [place] [address] 630895 Urology 12/18/22 Lakshmi Wilhelm PA-C [address] [place] [address] 991505 Physician Trade Marker Urology 02/03/23 [place] [address] [place] [address] Assigned PCP 02/06/23 Alissa Perez PA-C [address] [place] [address] 803925 Physician Trade Marker Surgery 09/04/23 Lakshmi Wilhelm PA-C [address] [place] [address] 480325 Physician Trade Marker Urology 09/16/23 Aidee Valero PA-C [address] [place] [address] 308775 Assigned Musculoskeletal Provider 04/17/24 Tanisha Marlow 4120 [facility] [address] 03/30/24 documented as of this encounter
--- OUTSIDE RECORDS SUMMARY | 2024-06-10 23:36 | XMS_ITS | Encounter Summary ---
Author Organization [place] Address [address] [place] [address] Care Team Providers Care Interventional Physiatrist Name Role Phone Carlos Joyner MD Unavailable [phone] Jadon Murray MD Unavailable [phone] Maru Villagomez RN Unavailable Unavailable Ang Slade MD Unavailable [phone] Carlos Joyner MD Unavailable [phone] Ang Slade MD Unavailable [phone] Lakshmi Wilhelm PA-C Unavailable Heladio Willoughby MD Primary Care Provider [phone] Heladio Willoughby MD Unavailable Alissa Perez PA-C Unavailable [phone] Lakshmi Wilhelm PA-C Unavailable [phone] Aidee Valero PA-C Unavailable [phone] Encounter Details Date Type Department Care Team (Late st Contact Info) Description 06/25/2023 [facility] [address] [place] [address] Carlos Joyner MD [address] [place] [address] Social History Tobacco Use Types Packs/Day [...] st Contact Info) Description 06/15/2024 9:30 AM COUNSELING DIRECTOR Office Visit [address] [address] Xu Prince MD [address] [place] [address] 06/15/2024 2:30 PM COUNSELING DIRECTOR Office Visit [facility] [address] [place] [address] Andreea Cruz, PAEarlC 65678 [facility] [place], [place] 8288868 07/21/2024 4:00 PM COUNSELING DIRECTOR Office Visit [facility] [address] [facility] [place] [address] [place] [address] [address] [place], [place] 1079768 documented as of this encounter Visit Diagnoses Not on filedocumented in this encounter Care Teams Interventional Physiatrist Relationship Specialty [place] [address] [facility] [place] [place] 5921768 PCP - General 03/05/23 Carlos Joyner MD [address] [place] [address] 105975 Urology 12/09/19 Jadon Murray MD [facility] 2530 [facility] 550 [place] [address] Referring Physician Pediatric Surgery 12/09/19 Maru Villagomez, OTILIO Registered Nurse 12/10/19 Ang Slade MD [address] [place] [address] Urology 04/24/20 Carlos Joyner MD [address] [place] [address] 453315 Assigned Surgical Provider 12/24/20 Ang Slade MD [address] [place] [address] Urology 12/18/22 Lakshmi Wilhelm PA-C [address] [place] [address] 265205 Physician Correctional Casework Specialist Urology 02/03/23 [place] [address] [facility] [address] Assigned PCP 02/06/23 Alissa Perez PA-C [address] [place] [address]47 Physician Correctional Casework Specialist Surgery 09/04/23 Lakshmi Wilhelm PA-C [address] [place] [address]385 Physician Correctional Casework Specialist Urology 09/16/23 Aidee Valero PA-C [address] [place] [address] 446925 Assigned Musculoskeletal Provider 04/17/24 Tanisha Marlow 4120 [facility] [address] 03/30/24 documented as of this encounter
--- OUTSIDE RECORDS SUMMARY | 2024-06-10 23:36 | XMS_ITS | Encounter Summary ---
Author Organization [place] Address 24[address] [facility] [place] [address] Care Team Providers Care Coding Consultant Name Role Phone Carlos Joyner MD Unavailable [phone] Jadon Murray MD Unavailable [phone] Maru Villagomez RN Unavailable Unavailable Ang Slade MD Unavailable +[phone] Carlos Joyner MD Unavailable [phone] Ang Slade MD Unavailable [phone] Lakshmi Wilhelm PA-C Unavailable [phone] Heladio Willoughby MD Primary Care Provider [phone] Heladio Willoughby MD Unavailable Alissa Perez PA-C Unavailable [phone] Lakshmi Wilhelm PA-C Unavailable [phone] Aidee Valero PA-C Unavailable [phone] Encounter Details Date Type Department Care Team (Late st Contact Info) Description 03/27/2023 [facility] Advice [facility] PREOP/PHASE II 2450 [place] [address] Lisette Salinas RN Social History Tobacco Use [...] in an overnight longterm, or couch-surfing.) Yes 02/26/2023 Are you worried [...] st Contact Info) Description 06/15/2024 9:30 AM CUFF SETTER Office Visit [address] [address] Xu Prince MD [address] [place] [address] 095884 06/15/2024 2:30 PM CUFF SETTER Office Visit [address] [address] Andreea Cruz PA-C [address] [place] [address] 07/21/2024 4:00 PM CUFF SETTER Office Visit [facility] [address] [place] [address] [place] [address] [facility] [place] [place] 3530468 documented as of this encounter Visit Diagnoses Not on filedocumented in this encounter Care Teams Coding Consultant Relationship Specialty [place] [address] [facility] [place], [place] 1145868 PCP - General 03/05/23 Carlos Joyner MD [address] [place] [address] Urology 12/09/19 Jadon Murray MD [facility] 2530 [facility] 550 [place] [address] Referring Physician Pediatric Surgery 12/09/19 Maru Villagomez, OTILIO Registered Nurse 12/10/19 Ang Slade MD [address] [place] [address] 865685 Urology 04/24/20 Carlos Joyner MD [address] [place] [address] 73962 Assigned Surgical Provider 12/24/20 Ang Slade MD [address] [place] [address] Urology 12/18/22 Lakshmi Wilhelm PA-C [address] [place] [address] 09851 Physician Associate Professor Of Biology Urology 02/03/23 [place] [address] [place] [address] Assigned PCP 02/06/23 Alissa Perez PA-C [address] [place] [address]24 Physician Associate Professor Of Biology Surgery 09/04/23 Lakshmi Wilhelm PA-C [address] [place] [address]007 Physician Associate Professor Of Biology Urology 09/16/23 Aidee Valero PA-C [address] [place] [address] 636945 Assigned Musculoskeletal Provider 04/17/24 Tanisha Marlow 4120 [facility] [address] 03/30/24 documented as of this encounter
--- OUTSIDE RECORDS SUMMARY | 2024-06-10 23:36 | XMS_ITS | Encounter Summary ---
Author Organization [place] Address [address] [place] [address]. [place] [address] Care Team Providers Care Warranty Clerk Name Role Phone Carlos Joyner MD Unavailable [phone] Jadon Murray MD Unavailable [phone] Maru Villagomez RN Unavailable Unavailable Ang Slade MD Unavailable +[phone] Carlos Joyner MD Unavailable [phone] Ang Slade MD Unavailable [phone] Lakshmi Wilhelm PA-C Unavailable [phone] Heladio Willoughby MD Primary Care Provider [phone] Heladio Willoughby MD Unavailable Alissa Perez PA-C Unavailable [phone] Lakshmi Wilhelm PA-C Unavailable [phone] Aidee Valero PA-C Unavailable [phone] Encounter Details Date Type Department Care Team (Late st Contact Info) Description 05/05/2023 [facility] Adv[facility] [address] 4th [place] [address] Rosita Velasco, RN Social History [...] st Contact Info) Description 06/15/2024 9:30 AM PERSONNEL COUNSELOR Office Visit [address] [address] Xu Prince MD [address] [place] [address] 796314 06/15/2024 2:30 PM PERSONNEL COUNSELOR Office Visit [facility] [address] [place] [address] Andreea Cruz PA-C [address] [place], [place] 0741768 07/21/2024 4:00 PM PERSONNEL COUNSELOR Office Visit [facility] [address] [address] [phone] [place] [address] [address] [place] 7373668 documented as of this encounter Visit Diagnoses Not on filedocumented in this encounter Care Teams Warranty Clerk Relationship Specialty [place] [address] [address] 6841668 PCP - General 03/05/23 Carlos Joyner MD [address] [place] [address] 115[address] Urology 12/09/19 Jadon Murray MD [facility] 2530 [facility] 550 [place] [address] Referring Physician Pediatric Surgery 12/09/19 Maru Villagomez, OTILIO Registered Nurse 12/10/19 Ang Slade MD [address] [place] [address] Urology 04/24/20 Carlos Joyner MD [address] [place] [address] 88868 Assigned Surgical Provider 12/24/20 Ang Slade MD [address] [address] Urology 12/18/22 Lakshmi Wilhelm PA-C [address] [place] [address] Physician Spool Worker Urology 02/03/23 [place] [address] [place] [address] Assigned PCP 02/06/23 Alissa Perez PA-C [address] [place] [address]31 Physician Spool Worker Surgery 09/04/23 Lakshmi Wilhelm PA-C [address] [place] [address] 46735 Physician Spool Worker Urology 09/16/23 Aidee Valero PA-C [address] [place] [address]198 Assigned Musculoskeletal Provider 04/17/24 Tanisha Marlow 4120 [facility] [address] 03/30/24 documented as of this encounter
--- OUTSIDE RECORDS SUMMARY | 2024-06-10 23:36 | XMS_ITS | Encounter Summary ---
Author Organization [place] Address [address] [place] [address] Care Team Providers Care Camera Repair Technician Name Role Phone Carlos Joyner MD Unavailable [phone] Jadon Murray MD Unavailable + [phone] Maru Villagomez RN Unavailable Unavailable Ignacia Duran MD Primary Care Provider [phone] Ang Slade MD Unavailable [phone] Carlos Joyner MD Unavailable [phone] Ang Slade MD Unavailable [phone] Lakshmi Wilhelm-C Unavailable [phone] Heladio Willoughby MD Primary Care Provider [phone] Heladio Willoughby MD Unavailable Alissa Perez PA-C Unavailable [phone] Lakshmi Wilhelm-C Unavailable [phone] Aidee Valero PA-C Unavailable [phone] Encounter Details Date Type Department Care Team (Late st Contact Info) Description 01/06/2023 [facility] [place] [facility] [address] [address] Lisette Mariee Social History Tobacco [...] st Contact Info) Description 06/15/2024 9:30 AM TECHNICAL CABLE JOINTER Office Visit [facility] [address] [place] [phone] Xu Prince MD [address] [place] [address] 013854 06/15/2024 2:30 PM TECHNICAL CABLE JOINTER Office [facility] [address] [place] [address] Andreea Cruz PA-C [address] [place] [address] 07/21/2024 4:00 PM TECHNICAL CABLE JOINTER Office [facility] [address] [place] [address] [place] [address] [place], [place] 2844268 documented as of this encounter Visit Diagnoses Not on filedocumented in this encounter Additional Health Concerns Infection Onset Date Last Indicated Resolved Time MRSA Comment:Added from external infection. Pt has had Staph infections but never MRSA from Care everywhere chart review. Removing MRSA 02.06.23 06/17/2019 02/06/2023 9:41 AM C DT documented as of this encounter Care Teams Camera Repair Technician Relationship Specialty Start Date End Date Ignacia Duran MD PCP - General Pediatrics 01/20/20 03/04/23 [place] [address] [place] [address] PCP - General 03/05/23 Carlos Joyner MD [address] [place] [address] 17633 Urology 12/09/19 Jadon Murray MD [facility] [address] [address] Referring Physician Pediatric Surgery 12/09/19 Maru Villagomez, OTILIO Registered Nurse 12/10/19 Ang Slade MD [address] [place] [address] 42798 Urology 04/24/20 Carlos Joyner MD [address] [place] [address] 53242 Assigned Surgical Provider 12/24/20 Ang Slade MD [address] [place] [address] 77321 Urology 12/18/22 Lakshmi Wilhelm PA-C [address] [place] [address] 71851 Physician Blown Film Extrusion Operator Urology 02/03/23 [place] [address] [place] [address] Assigned PCP 02/06/23 Alissa Perez PA-C [address] [place] [address] 289245 Physician Blown Film Extrusion Operator Surgery 09/04/23 Lakshmi Wilhelm PA-C [address] [place] [address] 52816455 Physician Blown Film Extrusion Operator Urology 09/16/23 Aidee Valero PA-C [address] [place] [address] 89958455 Assigned Musculoskeletal Provider 04/17/24 Tanisha Marlow 4120 [facility] [address] 03/30/24 documented as of this encounter
--- OUTSIDE RECORDS SUMMARY | 2024-06-10 23:36 | XMS_ITS | Encounter Summary ---
Author Organization [facility] Address [address] [place] [address]. [place] [address] Care Team Providers Care Sap Pi Architect Name Role Phone Carlos Joyner MD Unavailable [phone] Jadon Murray MD Unavailable +[phone] Maru Villagomez RN Unavailable Unavailable Ang Slade MD Unavailable +[phone] Carlos Joyner MD Unavailable +[phone] Ang Slade MD Unavailable +[phone] Lakshmi Wilhelm-C Unavailable +[phone] Heladio Willoughby MD Primary Care Provider [phone] Heladio Willoughby MD Unavailable Alissa Perez PA-C Unavailable [phone] Lakshmi Wilhelm-C Unavailable +[phone] Aidee Valero PA-C Unavailable +[phone] Reason for Visit * Reason Onset Date Comments Forms 02/06/2024 [facility] ecial Education Cooperative - Medication Authorization Form Encounter Details Date Type Department Care Team (Late st Contact Info) Description 02/06/2024 [facility] [address] [place] [address] [place] [address] [place] [address] Forms ([facility] Education Crocodile Farmer... Social History Tobacco Use Types Packs/Day Years [...] is the form from? [facility] Urban Renew[employer] [facility] (if other please explain) Where did/will the form come from? form was sent via [facility] When is form/letter needed by: [facility] How would you like the form/letter returned: Clerkhart Printed forms and placed in provider's basket for review and signature Kasia Gutierrez Lead Retail Grocer [facility] documented in this encounter Plan of Treatment Upcoming Encounters Date Type Department Care Team (Late st Contact Info) Description 06/15/2024 9:30 AM METAL FENCE ERECTOR Office Visit [facility] [address] [phone] Xu Prince MD [address] [place], [place] [address] [address] 536564 06/15/2024 2:30 PM METAL FENCE ERECTOR [facility] [address] [place] [phone] Andreea Cruz PA-C [address] [place] [address] 07/21/2024 4:00 PM METAL FENCE ERECTOR [facility] [address] [place] [address] [place] [address] [place], [place] [phone] documented as of this encounter Visit Diagnoses Not on filedocumented in this encounter Care Teams Sap Pi Architect Relationship Specialty Start [place] [address] [place], [place] [phone] PCP - General 03/05/23 Carlos Joyner MD 909 [place], [place] 121125 Urology 12/09/19 Jadon Murray MD [facility] [address] [facility] 550 [place] [address] Referring Physician Pediatric Surgery 12/09/19 Maru Villagomez, RN Registered Nurse 12/10/19 Ang Slade MD [address] [place] [address] 394 [place] [address] Urology 04/24/20 Carlos Joyner MD [address] [place] [address] 328405 Assigned Surgical Provider 12/24/20 Ang Slade MD [address] [place] [address] MD Urology 12/18/22 Lakshmi Wilhelm PA-C [address] [place] [address] 564905 Physician Examination Grader Urology 02/03/23 [place] [address] [place] [address] Assigned PCP 02/06/23 Alissa Perez PA-C [address] [place] [address] Physician Examination Grader Surgery 09/04/23 Lakshmi Wilhelm PA-C [address] [place] [address] 826455 Physician Examination Grader Urology 09/16/23 Aidee Valero PA-C [address] [place] [address] 831725 Assigned Musculoskeletal Provider 04/17/24 Tanisha Marlow [address] [place] [address] 03/30/24 documented as of this encounter
--- OUTSIDE RECORDS SUMMARY | 2024-06-10 23:36 | XMS_ITS | Encounter Summary ---
Author Organization [facility] Address [address] [place] [address] Care Team Providers Care Leather Coverer Name Role Phone Carlos Joyner MD Unavailable [phone] Jadon Murray MD Unavailable +[phone] Maru Villagomez RN Unavailable Unavailable Ang Slade MD Unavailable +[phone] Carlos Joyner MD Unavailable +[phone] Ang Slade MD Unavailable +[phone] Lakshmi Wilhelm-C Unavailable +[phone] Heladio Willoughby MD Primary Care Provider [phone] Heladio Willoughby MD Unavailable Alissa Perez PA-C Unavailable [phone] Lakshmi Wilhelm-C Unavailable +[phone] Aidee Valero PA-C Unavailable [phone] Encounter Details Date Type Department Care Team (Late st Contact Info) Description 09/08/2023 [facility] Medical Advice [address] [address] Bhavna Ferris Social History Tobacco [...] st Contact Info) Description 06/15/2024 9:30 AM CELL INSTALLER Office Visit [address] [address] Xu Prince MD [address] [place] [address] 636774 06/15/2024 2:30 PM CELL INSTALLER Office Visit [facility] [address] [place] [phone] Andreea Cruz PA-C [address] [place], [place] 8065968 07/21/2024 4:00 PM CELL INSTALLER Office Visit [facility] [place] [address] [address] [phone] [place] [address] [address] [place] [id number] documented as of this encounter Visit Diagnoses Not on filedocumented in this encounter Care Teams Leather Coverer Relationship Specialty [place] [address] [address] [phone] PCP - General 03/05/23 Carlos Joyner MD [address] [place] [address] Urology 12/09/19 Jadon Murray MD [facility] 2530 [facility] 550 [place] [address] Referring Physician Pediatric Surgery 12/09/19 Maru Villagomez, OTILIO Registered Nurse 12/10/19 Ang Slade MD [address] [place] [address] Urology 04/24/20 Carlos Joyner MD [address] [place] [address] Assigned Surgical Provider 12/24/20 Ang Slade MD [address] [address] Urology 12/18/22 Lakshmi Wilhelm PA-C [address] [place] [address] Physician Marsh Buggy Operator Urology 02/03/23 [place] [address] [place] [address] Assigned PCP 02/06/23 Alissa Perez PA-C [address] [place] [address] Physician Marsh Buggy Operator Surgery 09/04/23 Lakshmi Wilhelm PA-C [address] [place] [address] Physician Marsh Buggy Operator Urology 09/16/23 Aidee Valero PA-C [address] [place] [address] Assigned Musculoskeletal Provider 04/17/24 Tanisha Marlow 4120 [facility] [address] 03/30/24 documented as of this encounter
--- OUTSIDE RECORDS SUMMARY | 2024-06-10 23:36 | XMS_ITS | Encounter Summary ---
Author Organization [facility] Address [address] [place] [address] Care Team Providers Care Value Analyst Name Role Phone Carlos Joyner MD Unavailable [phone] aJdon Murray MD Unavailable + [phone] Maru Villagomez RN Unavailable Unavailable Ang Slade MD Unavailable +[phone] Carlos Joyner MD Unavailable [phone] Ang Slade MD Unavailable +[phone] Lakshmi Wilhelm-C Unavailable +[phone] Heladio Willoughby MD Primary Care Provider [phone] Heladio Willoughby MD Unavailable Alissa Perez PA-C Unavailable [phone] Lakshmi Wilhelm-C Unavailable +[phone] Aidee Valero PA-C Unavailable +[phone] Encounter Details Date Type Department Care Team [...] st Contact Info) Description 06/15/2024 9:30 AM SENIOR INFORMATION SECURITY ARCHITECT Office Visit [address] [phone] Xu Prince MD [address] [place] [address] 795514 06/15/2024 2:30 PM SENIOR INFORMATION SECURITY ARCHITECT Office Visit [facility] [address] [place] [address] Andreea Cruz PA-C [address] [place] [address] 07/21/2024 4:00 PM SENIOR INFORMATION SECURITY ARCHITECT Office Visit [facility] [address] [place] [address] [place] [address] [place] [address] documented as of this encounter Visit Diagnoses Not on filedocumented in this encounter Care Teams Value Analyst Relationship Specialty [place] [address] [place] [address] PCP - General 03/05/23 Carlos Joyner MD [address] [place] [address] 440905 Urology 12/09/19 Jadon Murray MD [facility] [address] [id number] Referring Physician Pediatric Surgery 12/09/19 Maru Villagomez, RN Registered Nurse 12/10/19 Ang Slade MD [address] [place] [address] 650085 Urology 04/24/20 Carlos Joyner MD [address] [place] [address] 155945 Assigned Surgical Provider 12/24/20 Ang Slade MD [address] [place] [address] Urology 12/18/22 Lakshmi Wilhelm PA-C [address] [place] [address] 340635 Physician Technology Support Analyst Urology 02/03/23 [place] [address] [place] [address] Assigned PCP 02/06/23 Alissa Perez PA-C [address] [place] [address] Physician Technology Support Analyst Surgery 09/04/23 Lakshmi Wilhelm PA-C [address] [place] [address] Physician Technology Support Analyst Urology 09/16/23 Aidee Valero PA-C 909 [place] [address] Assigned Musculoskeletal Provider 04/17/24 Tanisha Marlow 4120 [facility] [address] 03/30/24 documented as of this encounter
--- OUTSIDE RECORDS SUMMARY | 2024-06-10 23:36 | XMS_ITS | Encounter Summary ---
Author Organization [facility] Address [address] [place] [address] Care Team Providers Care Business Insurance Agent Name Role Phone Carlos Joyner MD Unavailable [phone] Jadon Murray MD Unavailable + [phone] Maru Villagomez RN Unavailable Unavailable Ignacia Duran MD Primary Care Provider [phone] Ang Slade MD Unavailable +[phone] Carlos Joyner MD Unavailable [phone] Ang Slade MD Unavailable +[phone] Lakshmi Wilhelm-C Unavailable +[phone] Heladio Willoughby MD Primary Care Provider [phone] Heladio Willoughby MD Unavailable Alissa Perez PA-C Unavailable [phone] Lakshmi Wilhelm-C Unavailable [phone] Aidee Valero PA-C Unavailable [phone] Encounter Details Date Type Department Care Team (Late st Contact Info) Description 01/07/2023 [facility] [address] [place] [address] Analisa Palacio, OTILIO Social History [...] st Contact Info) Description 06/15/2024 9:30 AM PORTFOLIO STRATEGIST Office Visit [facility] [address] [place] [phone] Xu Prince MD [address] [place] [address] [id number] 06/15/2024 2:30 PM PORTFOLIO STRATEGIST Office [facility] [address] [place] [address] Andreea Cruz PA-C [address] [place] [address] 07/21/2024 4:00 PM PORTFOLIO STRATEGIST Office [facility] [address] [place] [address] [place] [address] [place] [address] documented as of this encounter Visit Diagnoses Not on filedocumented in this encounter Additional Health Concerns Infection Onset Date Last Indicated Resolved Time MRSA Comment:Added from external infection. Pt has had Staph infections but never MRSA from Care everywhere chart review. Removing MRSA 02.06.23 06/17/2019 02/06/2023 9:41 AM C DT documented as of this encounter Care Teams Business Insurance Agent Relationship Specialty Start Date End Date Ignacia Duran MD PCP - General Pediatrics 01/20/20 03/04/23 [place] [address] [place] [address] PCP - General 03/05/23 Carlos Joyner MD [address] [place] [address] Urology 12/09/19 Jadon Murray MD [facility] [address] [address] Referring Physician Pediatric Surgery 12/09/19 Maru Villagomez, OTILIO Registered Nurse 12/10/19 Ang Slade MD [address] [place] [address] Urology 04/24/20 Carlos Joyner MD [address] [place] [address] Assigned Surgical Provider 12/24/20 Ang Slade MD [address] [place] [address] Urology 12/18/22 Lakshmi Wilhelm PA-C [address] [place] [address] Physician Sheet Rock Layer Urology 02/03/23 [place] [address] [place] [address] Assigned PCP 02/06/23 Alissa Perez PA-C [address] [place] [address] 704285 Physician Sheet Rock Layer Surgery 09/04/23 Lakshmi Wilhelm PA-C [address] [place] [address] [phone] Physician Sheet Rock Layer Urology 09/16/23 Aidee Valero PA-C [address] [place] [address] [id number] Assigned Musculoskeletal Provider 04/17/24 Tanisha Marlow 4120 [facility] [place] [address] 03/30/24 documented as of this encounter
--- OUTSIDE RECORDS SUMMARY | 2024-06-10 23:36 | XMS_ITS | Encounter Summary ---
Author Organization [facility] Address [address] [place] [address] Care Team Providers Care Tile Presser Name Role Phone Carlos Joyner MD Unavailable [phone] Jadon Murray MD Unavailable [phone] Maru Villagomez RN Unavailable Unavailable Ang Slade MD Unavailable +[phone] Carlos Joyner MD Unavailable +[phone] Ang Slade MD Unavailable +[phone] Lakshmi Wilhelm PA-C Unavailable +[phone] Heladio Willoughby MD Primary Care Provider [phone] Heladio Willoughby MD Unavailable Alissa Perez PA-C Unavailable [phone] Lakshmi Wilhelm-C Unavailable +[phone] Aidee Valero PA-C Unavailable +[phone] Encounter Details Date Type Department Care Team (Late st Contact Info) Description 08/18/2023 [facility] Advice [employer] [address] [place] [address] Analisa Conner Social History Tobacco Use [...] st Contact Info) Description 06/15/2024 9:30 AM MOPHEAD TRIMMER AND WRAPPER Office Visit [address] [address] Xu Prince MD [address] [place] [address] 085614 06/15/2024 2:30 PM MOPHEAD TRIMMER AND WRAPPER Office Visit [facility] [address] [place] [address] Andreea Cruz PA-C [address] [place], [place] 9423668 07/21/2024 4:00 PM MOPHEAD TRIMMER AND WRAPPER [facility] [address] [address] [phone] [place] [address] [address] [id number] documented as of this encounter Visit Diagnoses Not on filedocumented in this encounter Care Teams Tile Presser Relationship Specialty [place] [address] [address] [phone] PCP - General 03/05/23 Carlos Joyner MD [address] [place] [address] Urology 12/09/19 Jadon Murray MD [facility] [address] [address] Referring Physician Pediatric Surgery 12/09/19 Maru Villagomez, OTILIO Registered Nurse 12/10/19 Ang Slade MD [address] [place] [address] Urology 04/24/20 Carlos Joyner MD [address] [place] [address] Assigned Surgical Provider 12/24/20 Ang Slade MD [address] [address] Urology 12/18/22 Lakshmi Wilhelm PA-C [address] [place] [address] 048385 Physician Food Safety Technician Urology 02/03/23 [place] [address] [place] [address] Assigned PCP 02/06/23 lAissa Perez PA-C [address] [place] [address] 707995 Physician Food Safety Technician Surgery 09/04/23 Lakshmi Wilhelm PA-C [address] [place] [address] 690365 Physician Food Safety Technician Urology 09/16/23 Aidee Valero PA-C [address] [place] [address] 667875 Assigned Musculoskeletal Provider 04/17/24 Tanisha Marlow 4120 [facility] [address] 03/30/24 documented as of this encounter
--- OUTSIDE RECORDS SUMMARY | 2024-06-10 23:36 | XMS_ITS | Encounter Summary ---
Author Organization [facility] Address [address] [place] [address] Care Team Providers Care Bilingual Customer Service Name Role Phone Carlos Joyner MD Unavailable [phone] Jadon Murray MD Unavailable + [phone] Maru Villagomez RN Unavailable Unavailable Ignacia Duran MD Primary Care Provider [phone] Ang Slade MD Unavailable +[phone] Carlos Joyner MD Unavailable [phone] Ang Slade MD Unavailable +[phone] Lakshmi Wilhelm-C Unavailable +[phone] Heladio Willoughby MD Primary Care Provider [phone] Heladio Willoughby MD Unavailable Alissa Perez PA-C Unavailable [phone] Lakshmi Wilhelm-C Unavailable +[phone] Aidee Valero PA-C Unavailable +[phone] Encounter Details Date Type Department Care Team (Late st Contact Info) Description 12/30/2022 [facility] [address] [place] [address] Analisa Palacio, OTILIO Social History [...] Contact Info) Description 06/15/2024 9:30 AM SALES REPRESENTATIVE WIRE ROPE Office Visit [facility] [address] [place] [phone] Xu Prince MD [address] [place] [address] 69469454 06/15/2024 2:30 PM SALES REPRESENTATIVE WIRE ROPE Office Visit [facility] [address] [place] [address] Andreea Cruz PA-C [address] [place] [address] 07/21/2024 4:00 PM SALES REPRESENTATIVE WIRE ROPE Office Visit [facility] [address] [place] [address] [place] [address] [place] [address] documented as of this encounter Visit Diagnoses Not on filedocumented in this encounter Additional Health Concerns Infection Onset Date Last Indicated Resolved Time MRSA Comment:Added from external infection. Pt has had Staph infections but never MRSA from Care everywhere chart review. Removing MRSA 02.06.23 06/17/2019 02/06/2023 9:41 AM C DT documented as of this encounter Care Teams Bilingual Customer Service Relationship Specialty Start Date End Date Ignacia Duran MD PCP - General Pediatrics 01/20/20 03/04/23 [place] [address] [place] [address] PCP - General 03/05/23 Carlos Joyner MD [address] [place] [address] Urology 12/09/19 Jadon Murray MD [facility] [address] [address] Referring Physician Pediatric Surgery 12/09/19 Maru Villagomez, OTILIO Registered Nurse 12/10/19 Ang Slade MD [address] [place] [address] Urology 04/24/20 Carlos Joyner MD [address] [place] [address] 88191 Assigned Surgical Provider 12/24/20 Ang Sldae MD [address] [place] [address] Urology 12/18/22 Lakshmi Wilhelm PA-C [address] [place] [address] Physician Bale Stacker Urology 02/03/23 [place] [address] [place] [address] Assigned PCP 02/06/23 Alissa Perez PA-C [address] [place] [address] 438495 Physician Bale Stacker Surgery 09/04/23 Lakshmi Wilhelm PA-C [address] [place] [address] [id number] Physician Bale Stacker Urology 09/16/23 Aidee Valero PA-C [address] [place] [address] [phone] Assigned Musculoskeletal Provider 04/17/24 Tanisha Marlow 4120 [facility] [address] 03/30/24 documented as of this encounter
--- OUTSIDE RECORDS SUMMARY | 2024-06-10 23:36 | XMS_ITS | Encounter Summary ---
Author Organization [facility] Address [address] [place] [address] Care Team Providers Care Training And Development Specialist Name Role Phone Carlos Joyner MD Unavailable [phone] Jadon Murray MD Unavailable [phone] Maru Villagomez RN Unavailable Unavailable Ang Slade MD Unavailable +[phone] Carlos Joyner MD Unavailable [phone] Ang Slade MD Unavailable +[phone] Lakshmi Wilhelm PA-C Unavailable [phone] Heladio Willoughby MD Primary Care Provider [phone] Heladio Willoughby MD Unavailable Alissa Perez PA-C Unavailable [phone] Lakshmi Wilhelm PA-C Unavailable +[phone] Aidee Valero PA-C Unavailable +[phone] Reason for Visit * Reason Onset Date Comments Appointment 03/09/2024 Encounter Details Date Type Department Care Team (Late st Contact Info) Description 03/09/2024 Telephone [facility] [place] 199469 [facility] [address] 4[address] [place] [address] Unknown, Doctor, MD Appointment Social [...] st Contact Info) Description 06/15/2024 9:30 AM BARNWORKER GROOM Office Visit [address] [address] Xu Prince MD [address] [place], [place] [phone] 06/15/2024 2:30 PM BARNWORKER GROOM [facility] [address] [place] [address] Andreea Cruz PA-C [address] [place] [address] 07/21/2024 4:00 PM BARNWORKER GROOM [facility] [address] [place] [address] [place] [address] [place] [address] documented as of this encounter Visit Diagnoses Not on filedocumented in this encounter Care Teams Training And Development Specialist Relationship Specialty Start Date End Date Heladio [place]by [place] [address] [place] [address] [id number] PCP - General 03/05/23 Carlos Joyner MD [address] [place] [address] Urology 12/09/19 Jadon Murray MD [facility] 2530 [facility] 550 [place] [address] Referring Physician Pediatric Surgery 12/09/19 Maru Villagomez, RN Registered Nurse 12/10/19 Ang Slade MD [address] [place] [address] 394 [place] [address] Urology 04/24/20 Carlos Joyner MD NPI: [id number] [place] [address] Assigned Surgical Provider 12/24/20 Ang Slade MD [address] [place] [address] Urology 12/18/22 Lakshmi Wilhelm PA-C [address] [place] [address] Physician Organizational Consultant Urology 02/03/23 [place] [address] [place] [address] Assigned PCP 02/06/23 Alissa Perez PA-C [address] [place] [address] Physician Organizational Consultant Surgery 09/04/23 Lakshmi Wilhelm PA-C [address] [place] [address] Physician Organizational Consultant Urology 09/16/23 Aidee Valero PA-C [address] [place] [address] Assigned Musculoskeletal Provider 04/17/24 Tanisha Marlow 4120 [facility] [address] 03/30/24 documented as of this encounter
--- OUTSIDE RECORDS SUMMARY | 2024-06-10 23:36 | XMS_ITS | Encounter Summary ---
Author Organization [place] Address [address] [place] [address] Care Team Providers Care Fire Systems Inspector Name Role Phone Carlos Joyner MD Unavailable [phone] Jadon Murray MD Unavailable [phone] Maru Villagomez RN Unavailable Unavailable Ignacia Duran MD Primary Care Provider [phone] Ang Slade MD Unavailable +[phone] Carlos Joyner MD Unavailable [phone] Annalise Orta PA-C Unavailable Ang Slade MD Unavailable +[phone] Lakshmi Wilhelm-C Unavailable Heladio Willoughby MD Primary Care Provider [phone] Heladio Willoughby MD Unavailable Alissa Perez PA-C Unavailable [phone] Lakshmi Wilhelm PA-C Unavailable Aidee Valero PA-C Unavailable Encounter Details Date Type Department Care Team (Late st Contact Info) Description 12/18/2021 [facility] [address]th [place] [address] Carlos Joyner MD [address] [place] [address] Social History Tobacco Use Types Packs/Day [...] st Contact Info) Description 06/15/2024 9:30 AM COMMERCIAL DRONE SOFTWARE DEVELOPER Office Visit [facility] [address] [place] [address] Xu Prince MD [address] [place] [address] [phone] 06/15/2024 2:30 PM COMMERCIAL DRONE SOFTWARE DEVELOPER Office Visit [facility] [address] [place] [address] Andreea Cruz PA-C [address] [place] [address] 07/21/2024 4:00 PM COMMERCIAL DRONE SOFTWARE DEVELOPER Office Visit [facility] [address] [place] [address] [place] [address] [place] [address] documented as of this encounter Visit Diagnoses Not on filedocumented in this encounter Additional Health Concerns Infection Onset Date Last Indicated Resolved Time MRSA Comment:Added from external infection. Pt has had Staph infections but never MRSA from Care everywhere chart review. Removing MRSA 02.06.23 06/17/2019 02/06/2023 9:41 AM C DT documented as of this encounter Care Teams Fire Systems Inspector Relationship Specialty Start Date End Date Ignacia Duran MD PCP - General Pediatrics 01/20/20 03/04/23 [place] [address] [place] [address] PCP - General 03/05/23 Carlos Joyner MD [address] [place] [address] 325015 Urology 12/09/19 Jadon Murray MD [facility] [address] [address] Referring Physician Pediatric Surgery 12/09/19 Maru Villagomez, OTILIO Registered Nurse 12/10/19 Ang Slade MD [address] [place] [address] Urology 04/24/20 Carlos Joyner MD [address] [place] [address] 32260 Assigned Surgical Provider 12/24/20 Annalise Orta PA-C [address] [place] [address] Assigned Cancer Care Provider 05/13/21 11/01/22 Ang Slade MD [address] 369735 Urology 12/18/22 Lakshmi Wilhelm PA-C [address] [place] [address] 959335 Physician Coding Auditor Urology 02/03/23 [place] [address] [facility] [place] [address] Assigned PCP 02/06/23 Alissa Perez PA-C [address] [place] [address] 468455 Physician Coding Auditor Surgery 09/04/23 Lakshmi Wilhelm PA-C [address] [place] [address] 106355 Physician Coding Auditor Urology 09/16/23 Aidee Valero PA-C [address] [place] [address] 114755 Assigned Musculoskeletal Provider 04/17/24 Tanisha Marlow 4120 [facility] [address] 03/30/24 documented as of this encounter
--- OUTSIDE RECORDS SUMMARY | 2024-06-10 23:36 | XMS_ITS | Encounter Summary ---
Author Organization [place] Address [address] [place] [address]. [place] [address] Care Team Providers Care Environmental Services Technician Name Role Phone Carlos Joyner MD Unavailable [phone] Jadon Murray MD Unavailable [phone] Maru Villagomez RN Unavailable Unavailable Ang Slade MD Unavailable [phone] Carlos Joyner MD Unavailable +[phone] Ang Slade MD Unavailable [phone] Lakshmi Wilhelm PA-C Unavailable +[phone] Heladio Willoughby MD Primary Care Provider [phone] Heladio Willuoghby MD Unavailable Alissa Perez PA-C Unavailable [phone] Lakshmi Wilhelm PA-C Unavailable [phone] Aidee Valero PA-C Unavailable [phone] Encounter Details Date Type Department Care Team (Late st Contact Info) Description 04/26/2024 [facility] Adv[facility] [address] 4th [place] [address] Rosita Velasco, RN Social History [...] No additional needsat this time. OTILIO Becker Market Director- Urology [phone] RHOUSE HELPER documented in this encounter Plan of Treatment Upcoming Encounters Date Type Department Care Team (Late st Contact Info) Description 06/15/2024 9:30 AM POWERHOUSE HELPER Office Visit [address] [address] Xu Prince MD [address] [place] [address] 06/15/2024 2:30 PM POWERHOUSE HELPER [facility] [address] [place] [address] Andreea Cruz PA-C [address] [place] [address] 07/21/2024 4:00 PM POWERHOUSE HELPER [facility] [address] [place] [address] [place] [address] [place] [address] documented as of this encounter Visit Diagnoses Not on filedocumented in this encounter Care Teams Environmental Services Technician Relationship Specialty Start Date End Date Helad[place] [id number] [place], [place] [address]Genie [place], [place] [phone] PCP - General 03/05/23 Carlos Joyner MD [address] [place] [address] 974235 Urology 12/09/19 Jadon Murray MD [facility] 2530 [facility] [address] [place] [address] Referring Physician Pediatric Surgery 12/09/19 Maru Villagomez, OTILIO Registered Nurse 12/10/19 Ang Slade MD [address] [place] [address] [address] [place] [address] Urology 04/24/20 Carlos Joyner MD [address] [place] [address] 23060 Assigned Surgical Provider 12/24/20 Ang Slade MD [address] [place] [address] Urology 12/18/22 Lakshmi Wilhelm PA-C [address] [place] [address] 27731 Physician Rubber Insulator Urology 02/03/23 [place] [address] [place] [address] Assigned PCP 02/06/23 Alissa Perez PA-C [address] [place] [address] 19205 Physician Rubber Insulator Surgery 09/04/23 Lakshmi Wilhelm PA-C [address] [place] [address] 51782 Physician Rubber Insulator Urology 09/16/23 Aidee Valero PA-C [address] [place] [address] 70478 Assigned Musculoskeletal Provider 04/17/24 Tanisha Marlow 4120 [facility] [address] 03/30/24 documented as of this encounter
--- OUTSIDE RECORDS SUMMARY | 2024-06-10 23:36 | XMS_ITS | Encounter Summary ---
Author Organization [facility] Address [address] [place] [address] 269[address] Care Team Providers Care Mailing Manager Name Role Phone Carlos Joyner MD Unavailable [phone] Jadon Murray MD Unavailable [phone] Maru Villagomez RN Unavailable Unavailable Ang Slade MD Unavailable [phone] Carlos Joyner MD Unavailable [phone] Ang Slade MD Unavailable +[phone] Lakshmi Wilhelm PA-C Unavailable [phone] Heladio Willoughby MD Primary Care Provider [phone] Heladio Willoughby MD Unavailable Alissa Perez PA-C Unavailable [phone] Lakshmi Wilhelm PA-C Unavailable [phone] Aidee Valero PA-C Unavailable [phone] Encounter Details Date Type Department Care Team (Late st Contact Info) Description 02/13/2024 [facility] [address] [place] [address] Carlos Joyner MD [address] [place] [address] Social History Tobacco Use Types Packs/Day [...] st Contact Info) Description 06/15/2024 9:30 AM TUNNELING MACHINE OPERATOR Office Visit [address] [address] Xu Prince MD [address] [place] [address] 06/15/2024 2:30 PM TUNNELING MACHINE OPERATOR Office Visit [facility] [address] [place] [address] Andreea Cruz, PAEarlC [address] [facility] [place], [place] 05657[address] 07/21/2024 4:00 PM TUNNELING MACHINE OPERATOR Office Visit [facility] [address] [place] [address] [place] [address] [address] [place], [place] 4021668 documented as of this encounter Visit Diagnoses Not on filedocumented in this encounter Care Teams Mailing Manager Relationship Specialty [place] [address] [facility] [place] [place] 4291168 PCP - General 03/05/23 Carlos Joyner MD [address] [place] [address] 589815 Urology 12/09/19 Jadon Murray MD [facility] 2530 [facility] 550 [place] [address] Referring Physician Pediatric Surgery 12/09/19 Maru Villagomez, OTILIO Registered Nurse 12/10/19 Ang Slade MD [address] [place] [address] Urology 04/24/20 Carlos Joyner MD [address] [place] [address] 348895 Assigned Surgical Provider 12/24/20 Ang Slade MD [address] [place] [address] Urology 12/18/22 Lakshmi Wilhelm PA-C [address] [place] [address] 374195 Physician Assurance Specialist Urology 02/03/23 [place] [address] [facility] [place] [address] Assigned PCP 02/06/23 Alissa Perez PA-C [address] [place] [address] 89058 Physician Assurance Specialist Surgery 09/04/23 Lakshmi Wilhelm PA-C [address] [place] [address]604 Physician Assurance Specialist Urology 09/16/23 Aidee Valero PA-C [address] [place] [address] 751605 Assigned Musculoskeletal Provider 04/17/24 Tanisha Marlow 4120 [facility] [address] 03/30/24 documented as of this encounter
--- OUTSIDE RECORDS SUMMARY | 2024-06-10 23:36 | XMS_ITS | Encounter Summary ---
Author Organization [place] Address [address] [place] [address] Care Team Providers Care Tool Repairer Bench Name Role Phone Carlos Joyner MD Unavailable [phone] Jadon Murray MD Unavailable [phone] Maru Villagomez RN Unavailable Unavailable Ang Slade MD Unavailable [phone] Carlos Joyner MD Unavailable [phone] Ang Slade MD Unavailable +[phone] Lakshmi Wilhelm PA-C Unavailable Heladio Willoughby MD Primary Care Provider [phone] Heladio Willoughby MD Unavailable Alissa Perez PA-C Unavailable [phone] Lakshmi Wilhelm PA-C Unavailable [phone] Aidee Valero PA-C Unavailable [phone] Encounter Details Date Type Department Care Team (Late st Contact Info) Description 09/18/2023 [facility] Clinic [address] [place] [address] Carlos Joyner MD [address] [place] [address] Social History Tobacco Use Types Packs/Day [...] st Contact Info) Description 06/15/2024 9:30 AM VENETIAN BLIND MACHINE OPERATOR Office Visit [address] [address] Xu Prince MD [address] [place] [address] 06/15/2024 2:30 PM VENETIAN BLIND MACHINE OPERATOR Office Visit [facility] [address] [place] [address] Andreea Cruz, PAEarlC [address] [facility] [place], [place] 2413768 07/21/2024 4:00 PM VENETIAN BLIND MACHINE OPERATOR Office Visit [facility] [address] [facility] [place] [address] [place] [address] [address] [place], [place] 5926368 documented as of this encounter Visit Diagnoses Not on filedocumented in this encounter Care Teams Tool Repairer Bench Relationship Specialty [place] [address] [facility] [place], [place] 7779268 PCP - General 03/05/23 Carlos Joyner MD [address] [place] [address] 391925 Urology 12/09/19 Jadon Murray MD [facility] 2530 [facility] 550 [place] [address] Referring Physician Pediatric Surgery 12/09/19 Maru Villagomez, OTILIO Registered Nurse 12/10/19 Ang Slade MD [address] [place] [address] Urology 04/24/20 Carlos Joyner MD [address] [place] [address] 400205 Assigned Surgical Provider 12/24/20 Ang Slade MD [address] [place] [address] 069[address] Urology 12/18/22 Lakshmi Wilhelm PA-C [address] [place] [address] 190345 Physician Application Dba Urology 02/03/23 [place] [address] [facility] [place] [address] Assigned PCP 02/06/23 Alissa Perez PA-C [address] [place] [address] Physician Application Dba Surgery 09/04/23 Lakshmi Wilhelm PA-C [address] [place] [address]3425 Physician Application Dba Urology 09/16/23 Aidee Valero PA-C [address] [place] [address] 660065 Assigned Musculoskeletal Provider 04/17/24 Tanisha Marlow 4120 [facility] [address] 03/30/24 documented as of this encounter
--- OUTSIDE RECORDS SUMMARY | 2024-06-10 23:36 | XMS_ITS | Encounter Summary ---
Author Organization [place] Address [address] [place] [address] Care Team Providers Care Order Planner Name Role Phone Carlos Joyner MD Unavailable [phone] Jadon Murray MD Unavailable [phone] Maru Villagomez RN Unavailable Unavailable Ang Slade MD Unavailable +[phone] Carlos Joyner MD Unavailable [phone] Ang Slade MD Unavailable [phone] Lakshmi WilhelmC Unavailable [phone] Heladio Willoughby MD Primary Care Provider [phone] Heladio Willoughby MD Unavailable Alissa Perez PA-C Unavailable [phone] Lakshmi WilhelmC Unavailable [phone] Aidee ValeroC Unavailable [phone] Encounter Details Date Type Department Care Team (Late st Contact Info) Description 04/01/2024 [facility] [address] [place] [address] Aidee Valero PA-C [address] [place] [address] Social History Tobacco Use Types Packs/Day [...] st Contact Info) Description 06/15/2024 9:30 AM TRAVELING FREIGHT AGENT Office Visit [address] [address] Xu Prince MD [address] [place] [address] 06/15/2024 2:30 PM TRAVELING FREIGHT AGENT Office Visit [facility] [address] [place] [address] Andreea Cruz, PAEarlC [address] [facility] [place], [place] 9916968 07/21/2024 4:00 PM TRAVELING FREIGHT AGENT [facility] [address] [place] [address] [place] [address] [address] [place], [place] 3681668 documented as of this encounter Visit Diagnoses Not on filedocumented in this encounter Care Teams Order Planner Relationship Specialty [place] [address] [place], [place] 1965168 PCP - General 03/05/23 Carlos Joyner MD [address] [place] [address] 098855 Urology 12/09/19 Jadon Murray MD [facility] 2530 [facility] 550 [place], [place] [phone] Referring Physician Pediatric Surgery 12/09/19 Maru Villagomez, RN Registered Nurse 12/10/19 Ang Sl[place] MD [address] [place] [address] Urology 04/24/20 Carlos Joyner MD [address] [place] [address] 905655 Assigned Surgical Provider 12/24/20 Ang Sl[place] MD [address] [place] [address] 394 [place] [address] Urology 12/18/22 Lakshmi Wilhelm PA-C [address] [place] [address] 368105 Physician Security Screener Urology 02/03/23 [place] [address] [facility] [place] [address] Assigned PCP 02/06/23 Alissa Perez PA-C [address] [place] [address]79 Physician Security Screener Surgery 09/04/23 Lakshmi Wilhelm PA-C [address] [place] [address]75 Physician Security Screener Urology 09/16/23 Aidee Valero PA-C [address] [place] [address] 029305 Assigned Musculoskeletal Provider 04/17/24 Tanisha Marlow 4120 [facility] [address] 03/30/24 documented as of this encounter
--- OUTSIDE RECORDS SUMMARY | 2024-06-10 23:37 | XMS_ITS | Encounter Summary ---
Author Organization [place] Address [address] [place] [address] Care Team Providers Care Pull Through Hooker Name Role Phone Carlos Joyner MD Unavailable [phone] Jadon Murray MD Unavailable [phone] Maru Villagomez RN Unavailable Unavailable Ignacia Duran MD Primary Care Provider [phone] Carlos Joyner MD Unavailable +[phone] Ang Slade MD Unavailable [phone] Ang Slade MD Unavailable [phone] Carlos Joyner MD Unavailable +[phone] Annalise Orta-C Unavailable [phone] Ang Slade MD Unavailable [phone] Lakshmi Wilhelm-C Unavailable [phone] Heladio Willoughby MD Primary Care Provider [phone] Heladio Willoughby MD Unavailable Alissa Perez PA-C Unavailable [phone] Lakshmi Wilhelm-C Unavailable [phone] Aidee Valero PA-C Unavailable +[phone] Reason for Visit * Reason Comments Orders Encounter Details Date Type Department Care Team (Late st Contact Info) Description 02/02/2020 Orders Only [facility] Urology and [email or web address] for Prostate and Urologic Cancers [address] [phone] Maru Villagomez, RN Social History Tobacco Use [...] Contact Info) Description 06/15/2024 9:30 AM HAND I TUBE BENDER Office Visit [facility] [address] [place] [phone] Xu Prince MD [address] [place] [address] 931634 06/15/2024 2:30 PM HAND I TUBE BENDER Office Visit [facility] [address] [place] [address] Andreea Cruz PA-C [address] [place] [address] 07/21/2024 4:00 PM HAND I TUBE BENDER Office Visit [facility] [address] [place] [address] [place] [address] [place] [address] documented as of this encounter Visit Diagnoses Not on filedocumented in this encounter Additional Health Concerns Infection Onset Date Last Indicated Resolved Time MRSA Comment:Added from external infection. Pt has had Staph infections but never MRSA from Care everywhere chart review. Removing MRSA 9.14.23 06/17/2019 02/06/2023 9:41 AM C DT documented as of this encounter Care Teams Pull Through Hooker Relationship Specialty Start Date End Date Ignacia Duran MD PCP - General Pediatrics 01/20/20 03/04/23 [place] [address] [place] [address] PCP - General 03/05/23 Carlos Joyner MD [address] [place] [address] 429895 Urology 12/09/19 Jadon Murray MD [facility] [address] [id number] Referring Physician Pediatric Surgery 12/09/19 Maru Villagomez, RN Registered Nurse 12/10/19 Carlos Joyner MD [address] [place] [address] 292125 Assigned Surgical Provider 03/17/20 Ang Slade MD [address] [place] [address] 827205 Urology 04/24/20 Ang Slade MD [address] [place] [address] 843285 Assigned Surgical Provider 08/13/20 Carlos Joyner MD [address] [place] [address] 111395 Assigned Surgical Provider 12/24/20 Annalise Orta PA-C 5200 [place] [address] Assigned Cancer Care Provider 05/13/21 11/01/22 Ang Slade MD [address] [place] [address] 018535 MD Urology 12/18/22 Lakshmi Wilhelm PA-C [address] [place] [address] 765195 Physician Hvac Design Mechanical Engineer Urology 02/03/23 [place] [address] [place] [address] Assigned PCP 02/06/23 Alissa Perez PA-C [address] [place] [address] 536165 Physician Hvac Design Mechanical Engineer Surgery 09/04/23 Lakshmi Wilhelm PA-C [address] [place] [address] 167105 Physician Hvac Design Mechanical Engineer Urology 09/16/23 Aidee Valero PA-C [address] [place] [address] 009145 Assigned Musculoskeletal Provider 04/17/24 Tanisha Marlow 4120 [facility] [address] 03/30/24 documented as of this encounter
--- OUTSIDE RECORDS SUMMARY | 2024-06-10 23:37 | XMS_ITS | Encounter Summary ---
Author Organization [place] Address [address] [place] [address] Care Team Providers Care Anode Adjuster Name Role Phone Carlos Joyner MD Unavailable +[phone] Jadon Murray MD Unavailable [phone] Maru Villagomez RN Unavailable Unavailable Ignacia Duran MD Primary Care Provider [phone] Carlos Joyner MD Unavailable +[phone] Ang Slade MD Unavailable [phone] Ang Slade MD Unavailable +[phone] Carlos Joyner MD Unavailable +[phone] Annalise Orta PA-C Unavailable +[phone] Ang Slade MD Unavailable [phone] Lakshmi Wilhelm-C Unavailable [phone] Heladio Willoughby MD Primary Care Provider [phone] Heladio Willoughby MD Unavailable Alissa Peerz PA-C Unavailable [phone] Lakshmi Wilhelm-C Unavailable [phone] Aidee Valero PA-C Unavailable +[phone] Reason for Visit * Reason Onset Date Comments Call Back 08/01/2020 Miscommunication between urinary results Encounter Details Date Type Department Care Team (Late st Contact Info) Description 08/01/2020 Telephone [facility] [address] [place] [phone] Ang Slade MD 420 [facility] 394 [place], [place] 777835 Call Back (Miscommunication between urinary results) Social [...] COVID-19? No / Unsure 08/02/2020 8:37 AM SPECIAL TESTER documented as of this encounter Miscellaneous Notes * Telephone Encounter - Diego Sams - 08/01/2020 11:21 AM CST [facility] Phone Message May a detailed message be left on voicemail: yes Reason for Call: Other: Cristine with [facility] calling because pt's primary, , would like to speak with or a nurse regarding pt's urinary results. Reports that there is some miscommunication that she wants to clarify. Please call back. Action Taken: Message routed to: [facility] uro Travel Screening: Not Applicable IAL TESTER documented in this encounter Plan of Treatment Upcoming Encounters Date Type Department Care Team (Late st Contact Info) Description 06/15/2024 9:30 AM SPECIAL TESTER Office Visit [address] [address] Xu Prince MD [address] [place] [address] 106 [place] [address] 06/15/2024 2:30 PM SPECIAL TESTER [facility] [address] [place] [phone] Andreea Cruz PA-C [address] [place], [place] 6335468 07/21/2024 4:00 PM SPECIAL TESTER [facility] [address] [place] [phone] [place] [address] [place], [place] 5187968 documented as of this encounter Visit Diagnoses Not on filedocumented in this encounter Additional Health Concerns Infection Onset Date Last Indicated Resolved Time MRSA Comment:Added from external infection. Pt has had Staph infections but never MRSA from Care everywhere chart review. Removing MRSA 02.06.23 06/17/2019 02/06/2023 9:41 AM C DT documented as of this encounter Care Teams Anode Adjuster Relationship Specialty Start Date End Date Ignacia Duran MD PCP - General Pediatrics 01/20/20 03/04/23 [place] [address] [place], [place] 7054368 PCP - General 03/05/23 Carlos Joyner MD 909 [place] [address] Urology 12/09/19 Jadon Murray MD [facility] [address] [address] Referring Physician Pediatric Surgery 12/09/19 Maru Villagomez, RN Registered Nurse 12/10/19 Carlos Joyner MD 909 [place], [place] 860685 Assigned Surgical Provider 03/17/20 Ang Slade MD 420 [facility] 394 [place], [place] 529005 Urology 04/24/20 Ang Slade MD 420 [facility] 394 [place], [place] 124005 Assigned Surgical Provider 08/13/20 Carlos Joyner MD [address] [place] [address] 274855 Assigned Surgical Provider 12/24/20 Annalise Orta PA-C 5200 [place] [address] Assigned Cancer Care Provider 05/13/21 11/01/22 Ang Slade MD [address] 643725 Urology 12/18/22 Lakshmi Wilhelm PA-C [address] [place] [address] 530285 Physician Residential Program Coordinator Urology 02/03/23 [place] [address] [facility] [place] [address] Assigned PCP 02/06/23 Alissa Perez PA-C [address] [place] [address] Physician Residential Program Coordinator Surgery 09/04/23 Lakshmi Wilhelm PA-C [address] [place] [address] Physician Residential Program Coordinator Urology 09/16/23 Aidee Valero PA-C [address] [place] [address] Assigned Musculoskeletal Provider 04/17/24 Tanisha Marlow 4120 [facility] [address] 03/30/24 documented as of this encounter
--- OUTSIDE RECORDS SUMMARY | 2024-06-10 23:37 | XMS_ITS | Encounter Summary ---
Author Organization [facility] Address [address] [place] [address] Care Team Providers Care Extruding Department Supervisor Name Role Phone Carlos Joyner MD Unavailable +[phone] Jadon Murray MD Unavailable +[phone] Maru Villagomez RN Unavailable Unavailable Ignacia Duran MD Primary Care Provider [phone] Carlos Joyner MD Unavailable +[phone] Ang Slade MD Unavailable [phone] Ang Slade MD Unavailable +[phone] Carlos Joyner MD Unavailable +[phone] Annalise Orta PA-C Unavailable +[phone] Ang Slade MD Unavailable +[phone] Lakshmi Wilhelm-C Unavailable [phone] Heladio Willoughby MD Primary Care Provider [phone] Heladio Willoughby MD Unavailable lAissa Perez PA-C Unavailable [phone] Lakshmi Wilhelm-C Unavailable [phone] Aidee Valero PA-C Unavailable +[phone] Reason for Visit * Reason Onset Date Comments Call Back 06/07/2020 Stent FYI Encounter Details Date Type Department Care Team (Late st Contact Info) Description 06/07/2020 [facility] [place] 556299 [facility] 4th [place] [phone] Ang Slade MD 420 [facility] 394 [place], [place] 435395 Call Back (Stent FYI) Social History Tobacco [...] them back message sent to [email or web address] POUNCING MACHINE OPERATOR * Telephone Encounter - Zo Geiger - 06/07/2020 3:16 PM CST [facility] Phone Message May a detailed message be left on voicemail: yes Reason for Call: Other: Cristine calling to let us know that Laina's stent was put in by a providerat [facility] in the Emergency room on 02/04. Cristine is hoping to get a call back to discuss. Action Taken: Message routed to: [facility] Urology Travel Screening: Not Applicable POUNCING MACHINE OPERATOR documented in this encounter Plan of Treatment Upcoming Encounters Date Type Department Care Team (Late st Contact Info) Description 06/15/2024 9:30 AM BRIM POUNCING MACHINE OPERATOR Office Visit [address] [address] Xu Prince MD [address] [place] [address] 633384 06/15/2024 2:30 PM BRIM POUNCING MACHINE OPERATOR [facility] [address] [address] [place] [phone] Andreea Cruz PA-C [address] [place], [place] 7782468 07/21/2024 4:00 PM BRIM POUNCING MACHINE OPERATOR [facility] [address] [place] [address] [place] [address] [place], [place] 5437368 documented as of this encounter Visit Diagnoses Not on filedocumented in this encounter Additional Health Concerns Infection Onset Date Last Indicated Resolved Time MRSA Comment:Added from external infection. Pt has had Staph infections but never MRSA from Care everywhere chart review. Removing MRSA 02.06.23 06/17/2019 02/06/2023 9:41 AM C DT documented as of this encounter Care Teams Extruding Department Supervisor Relationship Specialty Start Date End Date Ignacia Duran MD PCP - General Pediatrics 01/20/20 03/04/23 [place] [address] [place], [place] [phone] PCP - General 03/05/23 Carlos Joyner MD 9 [place] [address] Urology 12/09/19 Jadon Murray MD [facility] [address] [address] Referring Physician Pediatric Surgery 12/09/19 Maru Villagomez, OTILIO Registered Nurse 12/10/19 Carlos Joyner MD 909 [place], [place] 542805 Assigned Surgical Provider 03/17/20 Ang Slade MD 420 [facility] 394 [place] [address] Urology 04/24/20 Ang Slade MD 420 [facility] 394 [place], [place] 377655 Assigned Surgical Provider 08/13/20 Carlos Joyner MD [address] [place] [address] 358575 Assigned Surgical Provider 12/24/20 Annalise Orta PA-C 5200 [place] [address] Assigned Cancer Care Provider 05/13/21 11/01/22 Agn Slade MD [address] 787325 Urology 12/18/22 Lakshmi Wilhelm PA-C [address] [place] [address] 284925 Physician Director Field Services Urology 02/03/23 [place] [address] [place] [address] Assigned PCP 02/06/23 Alissa Perez PA-C 500 [place] [address] Physician Director Field Services Surgery 09/04/23 Lakshmi Wilhelm PA-C [address] [place] [address] Physician Director Field Services Urology 09/16/23 Aidee Valero PA-C [address] [place] [address] Assigned Musculoskeletal Provider 04/17/24 Tanisha Marlow 4120 [facility] [address] 03/30/24 documented as of this encounter
--- OUTSIDE RECORDS SUMMARY | 2024-06-10 23:37 | XMS_ITS | Encounter Summary ---
Author Organization [place] Address [address] [place] [address] Care Team Providers Care Video Editing Intern Name Role Phone Carlos Joyner MD Unavailable +[phone] Jadon Murray MD Unavailable [phone] Maru Villagomez RN Unavailable Unavailable Ignacia Duran MD Primary Care Provider Ang Slade MD Unavailable +[phone] Carlos Joyner MD Unavailable +[phone] Annalise Orta PA-C Unavailable +[phone] Ang Slade MD Unavailable [phone] Lakshmi Wilhelm-C Unavailable [phone] Heladio Willoughby MD Primary Care Provider [phone] Heladio Willoughby MD Unavailable Alissa Perez PA-C Unavailable [phone] Lakshmi Wilhelm PA-C Unavailable [phone] Aidee Valero PA-C Unavailable [phone] Encounter Details Date Type Department Care Team (Late st Contact Info) Description 12/05/2021 [facility] [address] [address] [facility] Social History Tobacco Use Types Packs/Day [...] Contact Info) Description 06/15/2024 9:30 AM GLASS LAMINATING OPERATOR Office Visit [facility] [address] [place] [address] Xu Prince MD [address] [place] [address] [phone] 06/15/2024 2:30 PM GLASS LAMINATING OPERATOR Office Visit [facility] [address] [place] [address] Andreea Cruz PA-C [address] [place] [address] 07/21/2024 4:00 PM GLASS LAMINATING OPERATOR Office Visit [facility] [address] [place] [address] [place] [address] [place], [place] [phone] documented as of this encounter Visit Diagnoses Not on filedocumented in this encounter Additional Health Concerns Infection Onset Date Last Indicated Resolved Time MRSA Comment:Added from external infection. Pt has had Staph infections but never MRSA from Care everywhere chart review. Removing MRSA 9.14.23 06/17/2019 02/06/2023 9:41 AM C DT documented as of this encounter Care Teams Video Editing Intern Relationship Specialty Start Date End Date Ignacia Duran MD PCP - General Pediatrics 01/20/20 03/04/23 [place] [address] [facility] [place] [address] PCP - General 03/05/23 Carlos Joyner MD 9 [place] [address] Urology 12/09/19 Jadon Murray MD [facility] [address] [address] Referring Physician Pediatric Surgery 12/09/19 Maru Villagomez, RN Registered Nurse 12/10/19 Ang Slade MD [address] [address] Urology 04/24/20 Carlos Joyner MD [address] [place] [address] Assigned Surgical Provider 12/24/20 Annalise Orta PA-C 5200 [place] [address] Assigned Cancer Care Provider 05/13/21 11/01/22 Ang Slade MD [address] [address] Urology 12/18/22 Lakshmi Wilhelm PA-C [address] [place] [address] Physician Concession Cashier Urology 02/03/23 [place] [address] [place] [address] Assigned PCP 02/06/23 Alissa Perez PA-C [address] [place] [address] Physician Concession Cashier Surgery 09/04/23 Lakshmi Wilhelm PA-C [address] [place] [address] Physician Concession Cashier Urology 09/16/23 Aidee Valero PA-C [address] [place] [address] Assigned Musculoskeletal Provider 04/17/24 Tanisha Marlow 4120 [facility] [address] 03/30/24 documented as of this encounter
--- OUTSIDE RECORDS SUMMARY | 2024-06-10 23:37 | XMS_ITS | Encounter Summary ---
Author Organization [facility] Address [address] [place] [address] Care Team Providers Care Trainman Name Role Phone Carlos Joyner MD Unavailable +[phone] Jadon Murray MD Unavailable [phone] Maru Villagomez RN Unavailable Unavailable Ignacia Duran MD Primary Care Provider Ang Slade MD Unavailable [phone] Carlos Joyner MD Unavailable [phone] Annalise Orta-C Unavailable Ang Slade MD Unavailable Lakshmi Wilhelm-C Unavailable [phone] Heladio Willoughby MD Primary Care Provider [phone] Heladio Willougbhy MD Unavailable Alissa Perez PA-C Unavailable [phone] Lakshmi Wilhelm-C Unavailable Aidee Valero PA-C Unavailable Encounter Details Date Type Department Care Team (Late st Contact Info) Description 10/12/2021 [facility] [address] 5th [place] [address] Tanisha Coe PA-C [address] [place] [address] Social History Tobacco Use Types Packs/Day [...] st Contact Info) Description 06/15/2024 9:30 AM EDGE SANDER Office Visit [facility] [address] [place] [phone] Xu Prince MD [address] [place] [address] 082854 06/15/2024 2:30 PM EDGE SANDER Office Visit [facility] [address] [place] [address] Andreea Cruz PA-C [address] [place] [address] 07/21/2024 4:00 PM EDGE SANDER Office Visit [facility] [address] [place] [address] [place] [address] [place] [address] documented as of this encounter Visit Diagnoses Not on filedocumented in this encounter Additional Health Concerns Infection Onset Date Last Indicated Resolved Time MRSA Comment:Added from external infection. Pt has had Staph infections but never MRSA from Care everywhere chart review. Removing MRSA 02.06.23 06/17/2019 02/06/2023 9:41 AM C DT documented as of this encounter Care Teams Trainman Relationship Specialty Start Date End Date Ignacia Duran MD PCP - General Pediatrics 01/20/20 03/04/23 [place] [address] [facility] [place] [address] PCP - General 03/05/23 Carlos Joyner MD [address] [place] [address] Urology 12/09/19 Jadon Murray MD [facility] [address] [address] Referring Physician Pediatric Surgery 12/09/19 Maru Villagomez, OTILIO Registered Nurse 12/10/19 Ang Slade MD [address] [place] [address] Urology 04/24/20 Carlos Joyner MD [address] [place] [address] 673445 Assigned Surgical Provider 12/24/20 Annalise Orta PA-C 5200 [place] [address] Assigned Cancer Care Provider 05/13/21 11/01/22 Ang Slade MD [address] [place] [address] Urology 12/18/22 Lakshmi Wilhelm PA-C [address] [place] [address] 646515 Physician Manager Market Research Urology 02/03/23 [place] [address] [place] [address] Assigned PCP 02/06/23 Alissa Perez PA-C [address] [place] [address] 084495 Physician Manager Market Research Surgery 09/04/23 Lakshmi Wilhelm PA-C [address] [place] [address] 367965 Physician Manager Market Research Urology 09/16/23 Aidee Valero PA-C [address] [place] [address] 263845 Assigned Musculoskeletal Provider 04/17/24 Tanisha Marlow 4120 [facility] [address] 03/30/24 documented as of this encounter
--- OUTSIDE RECORDS SUMMARY | 2024-06-10 23:37 | XMS_ITS | Encounter Summary ---
Author Organization [place] Address [address] [place] [address] Care Team Providers Care Spinning Bath Person Name Role Phone Carlos Joyner MD Unavailable [phone] Jadon Murray MD Unavailable [phone] Maru Villagomez RN Unavailable Unavailable Ignacia Duran MD Primary Care Provider Ang Slade MD Unavailable [phone] Carlos Joyner MD Unavailable [phone] Annalise Orta PA-C Unavailable +[phone] Ang Slade MD Unavailable [phone] Lakshmi Wilhelm PA-C Unavailable [phone] Heladio Willoughby MD Primary Care Provider [phone] Heladio Willoughby MD Unavailable Alissa Perez PA-C Unavailable [phone] Lakshmi Wilhelm PA-C Unavailable [phone] iAdee Valero PA-C Unavailable [phone] Encounter Details Date Type Department Care Team (Late st Contact Info) Description 07/19/2021 [facility] [place] 757499 [facility] 4th [place] [address] Shyann Rehmna Social History Tobacco Use Types Packs/Day Years [...] COVID-19? No / Unsure 06/19/2021 11:16 AM TOOL AND DIE MAKER documented as of this encounter Plan of Treatment Upcoming Encounters Date Type Department Care Team (Late st Contact Info) Description 06/15/2024 9:30 AM TOOL AND DIE MAKER Office Visit [facility] [address] [facility] [place] [address] Xu Prince MD [address] [place] [address] 232394 06/15/2024 2:30 PM TOOL AND DIE MAKER [facility] [address] [place] [address] Andreea Cruz PA-C [address] [place] [address] 07/21/2024 4:00 PM TOOL AND DIE MAKER [facility] [address] [place] [address] [place] [address] [place] [address] documented as of this encounter Visit Diagnoses Not on filedocumented in this encounter Additional Health Concerns Infection Onset Date Last Indicated Resolved Time MRSA Comment:Added from external infection. Pt has had Staph infections but never MRSA from Care everywhere chart review. Removing MRSA 9.14.23 06/17/2019 02/06/2023 9:41 AM C DT documented as of this encounter Care Teams Spinning Bath Person Relationship Specialty Start Date End Date Ignacia Duran MD PCP - General Pediatrics 01/20/20 03/04/23 [place] [address] [facility] [place] [address] PCP - General 03/05/23 Carlos Joyner MD [address] [place] [address] Urology 12/09/19 Jadon Murray MD [facility] [address] [address] Referring Physician Pediatric Surgery 12/09/19 Maru Villagomez, OTILIO Registered Nurse 12/10/19 Ang Slade MD [address] [place] [address] Urology 04/24/20 Carlos Joyner MD [address] [place] [address] Assigned Surgical Provider 12/24/20 Annalise Orta PA-C 5200 [place] [address] Assigned Cancer Care Provider 05/13/21 11/01/22 Ang Slade MD [address] [place] [address] 390455 Urology 12/18/22 Lakshmi Wilhelm PA-C [address] [place] [address] 348145 Physician Ship Cleaner Urology 02/03/23 [place] [address] [place] [address] Assigned PCP 02/06/23 Alissa Perez PA-C [address] [place] [address] 677475 Physician Ship Cleaner Surgery 09/04/23 Lakshmi Wilhelm PA-C [address] [place] [address] 544005 Physician Ship Cleaner Urology 09/16/23 Aidee Valero PA-C 909 [place], [place] 156915 Assigned Musculoskeletal Provider 04/17/24 Tanisha Marlow 4120 [facility] [address] 03/30/24 documented as of this encounter
--- OUTSIDE RECORDS SUMMARY | 2024-06-10 23:37 | XMS_ITS | Encounter Summary ---
Author Organization [facility] Address [address] [place] [address] Care Team Providers Care Trophy Assembler Name Role Phone Carlos Joyner MD Unavailable +[phone] Jadon Murray MD Unavailable [phone] Maru Villagomez RN Unavailable Unavailable Ignacia Duran MD Primary Care Provider Ang Slade MD Unavailable [phone] Carlos Joyner MD Unavailable +[phone] Annalise Orta PA-C Unavailable +[phone] Ang Slade MD Unavailable +[phone] Lakshmi Wilhelm-C Unavailable [phone] Heladio Willoughby MD Primary Care Provider [phone] Heladio Willoughby MD Unavailable Alissa Perez PA-C Unavailable [phone] Lakshmi Wilhelm PA-C Unavailable [phone] Aidee Valero PA-C Unavailable [phone] Encounter Details Date Type Department Care Team (Late st Contact Info) Description 10/02/2021 [facility] Urology Clinic [address] [place] [address] Analisa Palacio, RN Social History [...] st Contact Info) Description 06/15/2024 9:30 AM MOLD RELEASE WORKER Office Visit [address] [phone] Xu Prince MD [address] [place] [address] [id number] 06/15/2024 2:30 PM MOLD RELEASE WORKER Office Visit [facility] [address] [place] [address] Andreea Cruz PA-C [address] [place], [place] 3352068 07/21/2024 4:00 PM MOLD RELEASE WORKER Office Visit [facility] [address] [place] [address] [place] [address] [place] [address] documented as of this encounter Visit Diagnoses Not on filedocumented in this encounter Additional Health Concerns Infection Onset Date Last Indicated Resolved Time MRSA Comment:Added from external infection. Pt has had Staph infections but never MRSA from Care everywhere chart review. Removing MRSA 9.14.23 06/17/2019 02/06/2023 9:41 AM C DT documented as of this encounter Care Teams Trophy Assembler Relationship Specialty Start Date End Date Ignacia Duran MD PCP - General Pediatrics 01/20/20 03/04/23 [place] [address] [place] [address] PCP - General 03/05/23 Carlos Joyner MD [address] [place] [address] Urology 12/09/19 Jadon Murray MD [facility] [address] [address] Referring Physician Pediatric Surgery 12/09/19 Maru Villagomez, RN Registered Nurse 12/10/19 Ang Slade MD [address] [place] [address] 590815 Urology 04/24/20 Carlos Joyner MD [address] [place] [address] 213665 Assigned Surgical Provider 12/24/20 Annalise Orta PA-C 5200 [place] [address] Assigned Cancer Care Provider 05/13/21 11/01/22 Ang Slade MD [address] [address] Urology 12/18/22 Lakshmi Wilhelm PA-C [address] [place] [address] 479395 Physician Machine Erector Urology 02/03/23 [place] [address] [place] [address] Assigned PCP 02/06/23 Alissa Perez PA-C [address] [place] [address] 742815 Physician Machine Erector Surgery 09/04/23 Lakshmi Wilhelm PA-C [address] [place] [address] Physician Machine Erector Urology 09/16/23 Adiee Valero PA-C [address] [place] [address] 783875 Assigned Musculoskeletal Provider 04/17/24 Tanisha Marlow 4120 [facility] [address] 03/30/24 documented as of this encounter
--- OUTSIDE RECORDS SUMMARY | 2024-06-10 23:37 | XMS_ITS | Encounter Summary ---
Author Organization [place] Address [address] [place] [address] 85772 Care Team Providers Care Sanitation Worker Cleaning Machinery Name Role Phone Carlos Joyner MD Unavailable [phone] Jadon Murray MD Unavailable [phone] Maru Villagomez RN Unavailable Unavailable Ignacia Duran MD Primary Care Provider [phone] Ang Slade MD Unavailable [phone] Carlos Joyner MD Unavailable +[phone] Annalise Orta PA-C Unavailable [phone] Ang Slade MD Unavailable [phone] Lakshmi Wilhelm-C Unavailable [phone] Heladio Willoughby MD Primary Care Provider [phone] Heladio Willoughby MD Unavailable Alissa Perez PA-C Unavailable [phone] Lakshmi Wilhelm PA-C Unavailable [phone] Aidee Valero PA-C Unavailable [phone] Encounter Details Date Type Department Care Team (Late st Contact Info) Description 04/16/2021 [facility] [address] [place] [address] Berna Britton Social History Tobacco [...] st Contact Info) Description 06/15/2024 9:30 AM GREENHOUSE ASSISTANT Office Visit [facility] [address] [place] [phone] Xu Prince MD [address] [place] [address] 163944 06/15/2024 2:30 PM GREENHOUSE ASSISTANT [facility] [address] [place] [address] Andreea Cruz PA-C [address] [place] [address] 07/21/2024 4:00 PM GREENHOUSE ASSISTANT Office Visit [facility] [address] [place] [address] [place] [address] [place] [address] documented as of this encounter Visit Diagnoses Not on filedocumented in this encounter Additional Health Concerns Infection Onset Date Last Indicated Resolved Time MRSA Comment:Added from external infection. Pt has had Staph infections but never MRSA from Care everywhere chart review. Removing MRSA 02.06.23 06/17/2019 02/06/2023 9:41 AM C DT documented as of this encounter Care Teams Sanitation Worker Cleaning Machinery Relationship Specialty Start Date End Date Ignacia Duran MD PCP - General Pediatrics 01/20/20 03/04/23 [place] [address] [place] [address] PCP - General 03/05/23 Carlos Joyner MD [address] [place] [address] Urology 12/09/19 Jadon Murray MD [facility] 2530 [facility] [address] [address] Referring Physician Pediatric Surgery 12/09/19 Maru Villagomez, RN Registered Nurse 12/10/19 Ang Slade MD [address] [place] [address]44 Urology 04/24/20 Carlos Joyner MD [address] [place] [address]35 Assigned Surgical Provider 12/24/20 Annalise Orta PA-C 5200 [place] [address] Assigned Cancer Care Provider 05/13/21 11/01/22 Ang Slade MD [address] [place] [address] Urology 12/18/22 Lakshmi Wilhelm PA-C [address] [place] [address] Physician Recruiting Internship Urology 02/03/23 [place] [address] [place] [address] Assigned PCP 02/06/23 Alissa Perez PA-C [address] [place] [address] Physician Recruiting Internship Surgery 09/04/23 Lakshmi Wilhelm PA-C [address] [place] [address] 097875 Physician Recruiting Internship Urology 09/16/23 Aidee Valero PA-C [address] [place] [address] 751875 Assigned Musculoskeletal Provider 04/17/24 Tanisha Marlow 4120 [facility] [address] 03/30/24 documented as of this encounter
--- OUTSIDE RECORDS SUMMARY | 2024-06-10 23:37 | XMS_ITS | Encounter Summary ---
Author Organization [place] Address [address] [place] [address] Care Team Providers Care Electrotyper Apprentice Name Role Phone Carlos Joyner MD Unavailable [phone] Jadon Murray MD Unavailable [phone] Maru Villagomez RN Unavailable Unavailable Ignacia Duran MD Primary Care Provider Ang Slade MD Unavailable [phone] Carlos Joyner MD Unavailable [phone] Annalise Orta PA-C Unavailable [phone] Ang Slade MD Unavailable [phone] Lakshmi Wilhelm PA-C Unavailable [phone] Heladio Willoughby MD Primary Care Provider [phone] Heladio Willoughby MD Unavailable Alissa Perez PA-C Unavailable [phone] Lakshmi Wilhelm PA-C Unavailable [phone] Aidee Valero PA-C Unavailable [phone] Encounter Details Date Type Department Care Team (Late st Contact Info) Description 07/31/2021 [facility] [address] 5th [place] [address] Makenzie Drummond, RN Social History [...] st Contact Info) Description 06/15/2024 9:30 AM PERSONAL SHOPPER Office Visit [facility] [address] [place] [phone] Xu Prince MD [address] [place] [address] [phone] 06/15/2024 2:30 PM PERSONAL SHOPPER Office Visit [facility] [address] [place] [address] Andreea Cruz, PA-C [address] [place], [place] 7931368 07/21/2024 4:00 PM PERSONAL SHOPPER Office Visit [facility] [address] [place] [address] [place] [address] [place] [address] documented as of this encounter Visit Diagnoses Not on filedocumented in this encounter Additional Health Concerns Infection Onset Date Last Indicated Resolved Time MRSA Comment:Added from external infection. Pt has had Staph infections but never MRSA from Care everywhere chart review. Removing MRSA 02.06.23 06/17/2019 02/06/2023 9:41 AM C DT documented as of this encounter Care Teams Electrotyper Apprentice Relationship Specialty Start Date End Date Ignacia Duran MD PCP - General Pediatrics 01/20/20 03/04/23 [place] [address] [facility] [place] [address] PCP - General 03/05/23 Carlos Joyner MD [address] [place] [address] Urology 12/09/19 Jadon Murray MD [facility] [address] [address] Referring Physician Pediatric Surgery 12/09/19 Maru Villagomez, RN Registered Nurse 12/10/19 Ang Slade MD [address] [place] [address] 878995 Urology 04/24/20 Carlos Joyner MD [address] [place] [address] 045225 Assigned Surgical Provider 12/24/20 Annalise Orta PA-C 5200 [place] [address] Assigned Cancer Care Provider 05/13/21 11/01/22 Ang Slade MD [address] 752515 Urology 12/18/22 Lakshmi Wilhelm PA-C [address] [place] [address] 136905 Physician Nipple Maker Urology 02/03/23 [place] [address] [address] [place] [address] Assigned PCP 02/06/23 Alissa Perez PA-C [address] [place] [address] Physician Nipple Maker Surgery 09/04/23 Lakshmi Wilhelm PA-C [address] [place] [address] 951405 Physician Nipple Maker Urology 09/16/23 Aidee Valero PA-C [address] [place] [address] 699535 Assigned Musculoskeletal Provider 04/17/24 Tanisha Marlow 4120 [facility] [address] 03/30/24 documented as of this encounter
--- OUTSIDE RECORDS SUMMARY | 2024-06-10 23:37 | XMS_ITS | Encounter Summary ---
Author Organization [place] Address [address] [place] [address] Care Team Providers Care Talcer Name Role Phone Carlos Joyner MD Unavailable [phone] Jadon Murray MD Unavailable [phone] Maru Villagomez RN Unavailable Unavailable Ignacia Duran MD Primary Care Provider Ang Slade MD Unavailable [phone] Carlos Joyner MD Unavailable [phone] Annalise Orta PA-C Unavailable [phone] Ang Slade MD Unavailable [phone] Lakshmi Wilhelm-C Unavailable [phone] Heladio Willoughby MD Primary Care Provider [phone] Heladio Willoughby MD Unavailable Alissa Perez PA-C Unavailable [phone] Lakshmi Wilhelm PA-C Unavailable [phone] Aidee Valero PA-C Unavailable [phone] Encounter Details Date Type Department Care Team (Late st Contact Info) Description 11/07/2021 [facility] Urology Clinic [address] [place] [address] Analisa Palacio, RN Social History [...] st Contact Info) Description 06/15/2024 9:30 AM LINE PILOT Office Visit [facility] [address] [place] [phone] Xu Prince MD [address] [place] [address] [phone] 06/15/2024 2:30 PM LINE PILOT Office Visit [facility] [address] [place] [address] Andreea Cruz PA-C [address] [place] [address] 07/21/2024 4:00 PM LINE PILOT Office Visit [facility] [address] [place] [address] [place] [address] [place], [place] [phone] documented as of this encounter Visit Diagnoses Not on filedocumented in this encounter Additional Health Concerns Infection Onset Date Last Indicated Resolved Time MRSA Comment:Added from external infection. Pt has had Staph infections but never MRSA from Care everywhere chart review. Removing MRSA 9.14.23 06/17/2019 02/06/2023 9:41 AM C DT documented as of this encounter Care Teams Talcer Relationship Specialty Start Date End Date Ignacia Duran MD PCP - General Pediatrics 01/20/20 03/04/23 [place] [address] [facility] [place] [address] PCP - General 03/05/23 Carlos Joyner MD [address] [place] [address] Urology 12/09/19 Jadon Murray MD [facility] [address] [address] Referring Physician Pediatric Surgery 12/09/19 Maru Villagomez, RN Registered Nurse 12/10/19 Ang Slade MD [address] [place] [address] Urology 04/24/20 Carlos Joyner MD [address] [place] [address] 89337 Assigned Surgical Provider 12/24/20 Annalise Orta PA-C 5200 [place] [address] Assigned Cancer Care Provider 05/13/21 11/01/22 Ang Slade MD [address] [address] Urology 12/18/22 Lakshmi Wilhelm PA-C [address] [place] [address] Physician Snow Removing Supervisor Urology 02/03/23 [place] [address] [place] [address] Assigned PCP 02/06/23 Alissa Perez PA-C [address] [place] [address] Physician Snow Removing Supervisor Surgery 09/04/23 Lakshmi Wilhelm PA-C [address] [place] [address] 15183 Physician Snow Removing Supervisor Urology 09/16/23 Aidee Valero PA-C [address] [place] [address] 617[address] Assigned Musculoskeletal Provider 04/17/24 Tanisha Marlow 4120 [facility] [address] 03/30/24 documented as of this encounter
--- OUTSIDE RECORDS SUMMARY | 2024-06-10 23:37 | XMS_ITS | Encounter Summary ---
Author Organization [place] Address [address] [place] [address]772 Care Team Providers Care Airworthiness Inspector Name Role Phone Carlos Joyner MD Unavailable [phone] Jadon Murray MD Unavailable [phone] Maru Villagomez RN Unavailable Unavailable Ignacia Duran MD Primary Care Provider [phone] Ang Slade MD Unavailable Carlos Joyner MD Unavailable [phone] Annalise Orta PA-C Unavailable Ang Slade MD Unavailable Lakshmi Wilhelm-C Unavailable Heladio Willoughby MD Primary Care Provider Heladio Willoughby MD Unavailable Alissa Perez PA-C Unavailable [phone] Lakshmi Wilhelm PA-C Unavailable [phone] Aidee Valero PA-C Unavailable [phone] Encounter Details Date Type Department Care Team (Late st Contact Info) Description 09/17/2021 [facility] [address] [place] [address] Carlos Joyner MD [address] [place] [address] Social History Tobacco Use Types Packs/Day [...] st Contact Info) Description 06/15/2024 9:30 AM BINDING PRINTER Office Visit [address] [phone] Xu Prince MD [address] [place] [address] 06/15/2024 2:30 PM BINDING PRINTER Office Visit [facility] [address] [place] [address] Andreea Cruz PAEarlC [address] [place] [address] 07/21/2024 4:00 PM BINDING PRINTER Office Visit [facility] [address] [place] [address] [place] [address] [place] [address] documented as of this encounter Visit Diagnoses Not on filedocumented in this encounter Additional Health Concerns Infection Onset Date Last Indicated Resolved Time MRSA Comment:Added from external infection. Pt has had Staph infections but never MRSA from Care everywhere chart review. Removing MRSA 9.14.23 06/17/2019 02/06/2023 9:41 AM C DT documented as of this encounter Care Teams Airworthiness Inspector Relationship Specialty Start Date End Date Ignacia Duran MD PCP - General Pediatrics 01/20/20 03/04/23 [place] [address] [place] [address] PCP - General 03/05/23 Carlos Joyner MD [address] [place] [address] Urology 12/09/19 Jadon Murray MD [facility] [address] [address] Referring Physician Pediatric Surgery 12/09/19 Maru Villagomez, OTILIO Registered Nurse 12/10/19 Ang Slade MD 420 [facility] [address] [place] [address] Urology 04/24/20 Carlos Joyner MD [address] [place] [address]37 Assigned Surgical Provider 12/24/20 Annalise Orta PA-C 5200 [place] [address] Assigned Cancer Care Provider 05/13/21 11/01/22 Ang Slade MD [address] [place] [address] Urology 12/18/22 Lakshmi Wilhelm PA-C [address] [place] [address] Physician Paradichlorobenzene Machine Operator Urology 02/03/23 [place] [address] [place] [address] Assigned PCP 02/06/23 Alissa Perez PA-C [address] [place] [address] Physician Paradichlorobenzene Machine Operator Surgery 09/04/23 Lakshmi Wilhelm PA-C [address] [place] [address] Physician Paradichlorobenzene Machine Operator Urology 09/16/23 Aidee Valero PA-C [address] [place] [address] Assigned Musculoskeletal Provider 04/17/24 Tanisha Marlow 4120 [facility] [address] 03/30/24 documented as of this encounter
--- OUTSIDE RECORDS SUMMARY | 2024-06-10 23:37 | XMS_ITS | Continuity of Care Document ---
Author Name NwGEOVANNIN User [email or web address] Address Unknown Organization Unknown Address Unknown Procedures FILTER APPLIED:Only known Procedures with Onset Date within the last 5 years Procedure Date Procedure Provider Additiona l Information Status [place] EMG ANAL/URETH SPHINCTER, OTHER THAN NEEDLE (44194) Completed [place] CYSTOMETROGRAM COMPLEX (45095) Completed [place] PERCUT NL/PL LITHOTRP COMPLEX >2 CM, MULTIPLE LOC, W IMG GUIDANCE (65647) Completed [place] PERCUT NL/PL LITHOTRP SIMPLE <=2 CM, 1 LOC, W IMG GUIDANCE (25413) Completed MANUAL THERAPY 1/> REGIONS (23577) Completed PT EVAL MOD COMPLEX 30 MIN (45287) Completed THERAPEUTIC EXERCISES (73450) Completed Encounters FILTER APPLIED:Only known Encounters with Admission Date within the last 5 years Encounter Location Admission Discharge Billing Code Crop And Soil Technician Ted hunter Inpatient [facility] Outpatient Ignacia mayes Outpatient [facility]
--- OUTSIDE RECORDS SUMMARY | 2024-06-10 23:37 | XMS_ITS | Encounter Summary ---
Author Organization [place] Address [address] [place] [address] Care Team Providers Care Car Repossessor Name Role Phone Carlos Joyner MD Unavailable [phone] Jadon Murray MD Unavailable [phone] Maru Villagomez RN Unavailable Unavailable Ignacia Duran MD Primary Care Provider Ang Slade MD Unavailable [phone] Carlos Joyner MD Unavailable [phone] Annalise Orta PA-C Unavailable [phone] Ang Slade MD Unavailable [phone] Lakshmi Wilhelm-C Unavailable [phone] Heladio Willoughby MD Primary Care Provider Heladio Willoughby MD Unavailable Alissa Perez PA-C Unavailable [phone] Lakshmi Wilhelm PA-C Unavailable [phone] Aidee Valero PA-C Unavailable [phone] Reason for Visit * Reason Onset Date Comments Patient/info Update 02/26/2021 pt currently intubated, will nto be able to have uro surgery Encounter Details Date Type Department Care Team ([facility] Contact Info) Description 02/26/[address] [facility] Urology Clinic [address] [place] [address] Carlos Joyner MD 909 [place], [place] 497105 Patient/info Update (pt currently intubated, will nto [...] Lakshmi Chowdhury - 02/26/2021 2:07 PM CDT [facility] Phone Message May a detailed message be left on voicemail: yes Reason for Call: Other: Edith called in wanting to let Dr. Joyner and his team know that [facility] date [facility]21. Please call back if thereare any questions at [phone] Action Taken: Message routed to: [facility] uro Travel Screening: Not Applicable documented in this encounter Plan of Treatment Upcoming Encounters Date Type Department Care Team (Late st Contact Info) Description 06/15/2024 9:30 AM SQUEAK RATTLE AND LEAK REPAIRER Office Visit [address] [address] Xu Prince MD [address] [place] [address] 696094 06/15/2024 2:30 PM SQUEAK RATTLE AND LEAK REPAIRER [facility] [address] [place] [phone] Andreea Cruz PA-C [address] [place], [place] 5430468 07/21/2024 4:00 PM SQUEAK RATTLE AND LEAK REPAIRER [facility] [address] [place] [address] [place] [address] [place], [place] 1414968 documented as of this encounter Visit Diagnoses Not on filedocumented in this encounter Additional Health Concerns Infection Onset Date Last Indicated Resolved Time MRSA Comment:Added from external infection. Pt has had Staph infections but never MRSA from Care everywhere chart review. Removing MRSA .1406/17/2019 02/06/2023 9:41 AM C DT documented as of this encounter Care Teams Car Repossessor Relationship Specialty Start Date End Date Ignacia Duran MD PCP - General Pediatrics 01/20/20 03/04/23 [place] [address] [place], [place] 0118668 PCP - General 03/05/23 Carlos Joyner MD 9 [place] [address] Urology 12/09/19 Jadon Murray MD [facility] [address] [address] Referring Physician Pediatric Surgery 12/09/19 Maru Villagomez, OTILIO Registered Nurse 12/10/19 Ang Slade MD [address] [place] [address] Urology 04/24/20 Carlos Joyner MD [address] [place] [address] Assigned Surgical Provider 12/24/20 Annalise Orta PA-C 5200 [place] [address] Assigned Cancer Care Provider 05/13/21 11/01/22 Ang Slade MD [address] [place] [address] Urology 12/18/22 Lakshmi Wilhelm PA-C [address] [place] [address] Physician Cow Tender Urology 02/03/23 [place] [address] [place] [address] Assigned PCP 02/06/23 Alissa Perez PA-C [address] [place] [address] Physician Cow Tender Surgery 09/04/23 Lakshmi Wilhelm PA-C [address] [place] [address] Physician Cow Tender Urology 09/16/23 Aidee Valero PA-C [address] [place] [address] Assigned Musculoskeletal Provider 04/17/24 Tanisha Marlow 4120 [facility] [address] 03/30/24 documented as of this encounter
--- OUTSIDE RECORDS SUMMARY | 2024-06-10 23:37 | XMS_ITS | Encounter Summary ---
Author Organization [place] Address [address] [place] [address] Care Team Providers Care Mill Controller Name Role Phone Carlos Joyner MD Unavailable [phone] Jadon Murray MD Unavailable [phone] Maru Villagomez RN Unavailable Unavailable Ignacia Duran MD Primary Care Provider Ang Slade MD Unavailable Carlos Joyner MD Unavailable [phone] Annalise Orta PA-C Unavailable Ang Slade MD Unavailable Lakshmi Wilhelm-C Unavailable [phone] Heladio Willoughby MD Primary Care Provider Heladio Willoughby MD Unavailable Alissa Perez PA-C Unavailable [phone] Lakshmi Wilhelm-C Unavailable Aidee Valero PA-C Unavailable [phone] Reason for Visit * Reason Onset Date Comments Call Back 06/27/2021 Bladder infectio n Encounter Details Date Type Department Care Team (Late st Contact Info) Description 06/27/2021 Telephone [facility]rology Clinic [address] 4th [place] [address] Carlos Joyner MD [address] [place] [address] Call Back (Bladder infection) Social History [...] COVID-19? No / Unsure 06/19/2021 11:16 AM FIBER DESIGNER documented as of this encounter Miscellaneous Notes * Telephone Encounter - Karen Sheth - 06/27/2021 12:22 PM CST [facility] Phone Message May a detailed [...] Center ([facility]): uro Travel Screening: Not Applicable R DESIGNER documented in this encounter Plan of Treatment Upcoming Encounters Date Type Department Care Team (Late st Contact Info) Description 06/15/2024 9:30 AM FIBER DESIGNER Office Visit [address] [address] Xu Prince MD [address] [place] [address] 06/15/2024 2:30 PM FIBER DESIGNER Office Visit [facility] [address] [place] [phone] Andreea Cruz PA-C [address] [place] [address] 07/21/2024 4:00 PM FIBER DESIGNER Office Visit [facility] [address] [place] [address] [place] [address] [facility] [place], [place] [phone] documented as of this encounter Visit Diagnoses Not on filedocumented in this encounter Additional Health Concerns Infection Onset Date Last Indicated Resolved Time MRSA Comment:Added from external infection. Pt has had Staph infections but never MRSA from Care everywhere chart review. Removing MRSA 02.06.23 06/17/2019 02/06/2023 9:41 AM C DT documented as of this encounter Care Teams Mill Controller Relationship Specialty Start Date End Date Ignacia Duran MD PCP - General Pediatrics 01/20/20 03/04/23 [place] [address] [address] [place], [place] [phone] PCP - General 03/05/23 Carlos Joyner MD [address] [place] [address] Urology 12/09/19 Jadon Murray MD [facility] [address] [facility] 550 [place] [address] Referring Physician Pediatric Surgery 12/09/19 Maru Villagomez, OTILIO Registered Nurse 12/10/19 Ang Slade MD [address] [place] [address] 394 [place] [address] Urology 04/24/20 Carlos Joyner MD [address] [place] [address] Assigned Surgical Provider 12/24/20 Annalise Orta PA-C 5200 [place] [address] Assigned Cancer Care Provider 05/13/21 11/01/22 Ang Slade MD [address] [place] [address] 837315 Urology 12/18/22 Lakshmi Wilhelm PA-C [address] [place] [address] 920115 Physician Odd Ticket Clerk Urology 02/03/23 [place] [address] [place] [address] Assigned PCP 02/06/23 Alissa Perez PA-C [address] [place] [address] Physician Odd Ticket Clerk Surgery 09/04/23 Lakshmi Wilhelm PA-C [address] [place] [address] Physician Odd Ticket Clerk Urology 09/16/23 Aidee Valero PA-C [address] [place] [address] Assigned Musculoskeletal Provider 04/17/24 Tanisha Marlow 4120 [facility] [address] 03/30/24 documented as of this encounter
--- OUTSIDE RECORDS SUMMARY | 2024-06-10 23:37 | XMS_ITS | Encounter Summary ---
Author Organization [place] Address [address] [place] [address] Care Team Providers Care Shuttle Veneering Supervisor Name Role Phone Carlos Joyner MD Unavailable [phone] Jadon Murray MD Unavailable +[phone] Maru Villagomez RN Unavailable Unavailable Ignacia Duran MD Primary Care Provider Ang Slade MD Unavailable +[phone] Carlos Joyner MD Unavailable +[phone] Annalise Orta PA-C Unavailable +[phone] Ang Slade MD Unavailable +[phone] Lakshmi Wilhelm-C Unavailable [phone] Heladio Willoughby MD Primary Care Provider [phone] Heladio Willoughby MD Unavailable Alissa Perez PA-C Unavailable [phone] Lakshmi Wilhelm PA-C Unavailable +[phone] Aidee Valero PA-C Unavailable +[phone] Encounter Details Date Type Department Care Team (Late st Contact Info) Description 11/14/2021 [facility] [address] [place] [address] Analisa Palacio, RN Social History [...] Contact Info) Description 06/15/2024 9:30 AM MEDICAL SCREENER Office Visit [facility] [address] [place] [address] [phone] Xu Prince MD [address] [place] [address] [phone] 06/15/2024 2:30 PM MEDICAL SCREENER Office Visit [facility] [address] [place] [address] Andreea Cruz PA-C [address] [place] [address] 07/21/2024 4:00 PM MEDICAL SCREENER Office Visit [facility] [address] [place] [address] [place] [address] [place], [place] [phone] documented as of this encounter Visit Diagnoses Not on filedocumented in this encounter Additional Health Concerns Infection Onset Date Last Indicated Resolved Time MRSA Comment:Added from external infection. Pt has had Staph infections but never MRSA from Care everywhere chart review. Removing MRSA 9.14.23 06/17/2019 02/06/2023 9:41 AM C DT documented as of this encounter Care Teams Shuttle Veneering Supervisor Relationship Specialty Start Date End Date Ignacia Duran MD PCP - General Pediatrics 01/20/20 03/04/23 [place] [address] [facility] [place] [address] PCP - General 03/05/23 Carlos Joyner MD [address] [place] [address] 65272 Urology 12/09/19 Jadon Murray MD [facility] [address] [address] Referring Physician Pediatric Surgery 12/09/19 Maru Villagomez, RN Registered Nurse 12/10/19 Ang Slade MD [address] [place] [address] 11568 Urology 04/24/20 Carlos Joyner MD [address] [place] [address] 30427 Assigned Surgical Provider 12/24/20 Annalise Orta PA-C 5200 [place] [address] Assigned Cancer Care Provider 05/13/21 11/01/22 Ang Slade MD [address] [address] Urology 12/18/22 Lakshmi Wilhelm PA-C [address] [place] [address] 49527 Physician Welder Production Line Arc Urology 02/03/23 [place] [address] [place] [address] Assigned PCP 02/06/23 Alissa Perez PA-C [address] [place] [address] 68368 Physician Welder Production Line Arc Surgery 09/04/23 Lakshmi Wilhelm PA-C [address] [place] [address] 82309 Physician Welder Production Line Arc Urology 09/16/23 Aidee Valero PA-C [address] [place] [address]57 Assigned Musculoskeletal Provider 04/17/24 Tanisha Marlow 4120 [facility] [address] 03/30/24 documented as of this encounter
--- OUTSIDE RECORDS SUMMARY | 2024-06-10 23:37 | XMS_ITS | Encounter Summary ---
Author Organization [place] Address [address] [place] [address] Care Team Providers Care Card Hanger Name Role Phone Carlos Joyner MD Unavailable [phone] Jadon Murray MD Unavailable [phone] Maru Villagomez RN Unavailable Unavailable Ignacia Duran MD Primary Care Provider [phone] Ang Slade MD Unavailable Carlos Joyner MD Unavailable +[phone] Annalise Orta PA-C Unavailable +[phone] Ang Slade MD Unavailable Lakshmi Wilhelm-C Unavailable [phone] Heladio Willoughby MD Primary Care Provider Heladio Willoughby MD Unavailable Alissa Perez PA-C Unavailable [phone] Lakshmi Wilhelm PA-C Unavailable Aidee Valero PA-C Unavailable Encounter Details Date Type Department Care Team (Late st Contact Info) Description 10/01/2021 [facility] [address] [place] [address] Carlos Joyner MD [address] [place] [address] Social History Tobacco Use Types Packs/Day [...] st Contact Info) Description 06/15/2024 9:30 AM HOME HEALTH OCCUPATIONAL THERAPIST Office Visit [facility] [address] [facility] [place] [phone] Xu Prince MD [address] [place] [address] [phone] 06/15/2024 2:30 PM HOME HEALTH OCCUPATIONAL THERAPIST Office Visit [facility] [address] [place] [address] Andreea Cruz PA-C [address] [place] [address] 07/21/2024 4:00 PM HOME HEALTH OCCUPATIONAL THERAPIST Office Visit [facility] [address] [place] [address] [place] [address] [place], [place] [phone] documented as of this encounter Visit Diagnoses Not on filedocumented in this encounter Additional Health Concerns Infection Onset Date Last Indicated Resolved Time MRSA Comment:Added from external infection. Pt has had Staph infections but never MRSA from Care everywhere chart review. Removing MRSA 02.06.23 06/17/2019 02/06/2023 9:41 AM C DT documented as of this encounter Care Teams Card Hanger Relationship Specialty Start Date End Date Ignacia Duran MD PCP - General Pediatrics 01/20/20 03/04/23 [place] [address] [facility] [place] [place] [address] PCP - General 03/05/23 Carlos Joyner MD [address] [place] [address] Urology 12/09/19 Jadon Murray MD [facility] [address] [address] Referring Physician Pediatric Surgery 12/09/19 Maru Villagomez, OTILIO Registered Nurse 12/10/19 Ang Slade MD [address] [place] [address] 17592 Urology 04/24/20 Carlos Joyner MD [address] [place] [address] Assigned Surgical Provider 12/24/20 Annalise Orta PA-C 5200 [place] [address] Assigned Cancer Care Provider 05/13/21 11/01/22 Ang Slade MD [address] [place] [address] Urology 12/18/22 Lakshmi Wilhelm PA-C [address] [place] [address] 936385 Physician Hypnotherapist Urology 02/03/23 [place] [address] [place] [address] Assigned PCP 02/06/23 Alissa Perez PA-C [address] [place] [address] 112745 Physician Hypnotherapist Surgery 09/04/23 Lakshmi Wilhelm PA-C [address] [place] [address] 256265 Physician Hypnotherapist Urology 09/16/23 Aidee Valero PA-C [address] [place] [address] 436795 Assigned Musculoskeletal Provider 04/17/24 Tanisha Marlow 4120 [facility] [address] 03/30/24 documented as of this encounter
--- OUTSIDE RECORDS SUMMARY | 2024-06-10 23:37 | XMS_ITS | Encounter Summary ---
Author Organization [place] Address [address] [place] [address]679 Care Team Providers Care Air Twist Operator Name Role Phone Carlos Joyner MD Unavailable [phone] Jadon Murray MD Unavailable [phone] Maru Villagomez RN Unavailable Unavailable Ignacia Duran MD Primary Care Provider [phone] Ang Slade MD Unavailable [phone] Carlos Joyner MD Unavailable [phone] Annalise Orta PA-C Unavailable [phone] Ang Slade MD Unavailable [phone] Lakshmi Wilhelm-C Unavailable [phone] Heladio Willoughby MD Primary Care Provider [phone] Heladio Willoughby MD Unavailable Alissa Perez PA-C Unavailable [phone] Lakshmi Wilhelm PA-C Unavailable [phone] Aidee Valero PA-C Unavailable [phone] Encounter Details Date Type Department Care Team (Late st Contact Info) Description 06/19/2021 [facility] [address] [address] Jenna Mcfadden, RN Social History [...] COVID-19? No / Unsure 06/19/2021 11:16 AM VARNISH MAKER HELPER documented as of this encounter Plan of Treatment Upcoming Encounters Date Type Department Care Team (Late st Contact Info) Description 06/15/2024 9:30 AM VARNISH MAKER HELPER Office Visit [facility] [address] [place] [phone] Xu Prince MD [address] [place] [address] 338454 06/15/2024 2:30 PM VARNISH MAKER HELPER [facility] [address] [place] [address] Andreea Cruz PA-C [address] [place] [address] 07/21/2024 4:00 PM VARNISH MAKER HELPER [facility] [address] [place] [address] [place] [address] [place] [address] documented as of this encounter Visit Diagnoses Not on filedocumented in this encounter Additional Health Concerns Infection Onset Date Last Indicated Resolved Time MRSA Comment:Added from external infection. Pt has had Staph infections but never MRSA from Care everywhere chart review. Removing MRSA 9.14.23 06/17/2019 02/06/2023 9:41 AM C DT documented as of this encounter Care Teams Air Twist Operator Relationship Specialty Start Date End Date Ignacia Duran MD PCP - General Pediatrics 01/20/20 03/04/23 [place] [address] [facility] [place] [address] PCP - General 03/05/23 Carlos Joyner MD [address] [place] [address] Urology 12/09/19 Jadon Murray MD [facility] [address] [id number] Referring Physician Pediatric Surgery 12/09/19 Maru Villagomez, OTILIO Registered Nurse 12/10/19 Ang Slade MD [address] [place] [address] Urology 04/24/20 Carlos Joyner MD [address] [place] [address]35 Assigned Surgical Provider 12/24/20 Annalise Orta PA-C 5200 [place] [address] Assigned Cancer Care Provider 05/13/21 11/01/22 Ang Slade MD [address] [place] [address] 494695 Urology 12/18/22 Lakshmi Wilhelm PA-C [address] [place] [address] 905395 Physician Haul Truck Driver Urology 02/03/23 [place] [address] [place] [address] Assigned PCP 02/06/23 Alissa Perez PA-C [address] [place] [address] 181525 Physician Haul Truck Driver Surgery 09/04/23 Lakshmi Wilhelm PA-C [address] [place] [address] 495495 Physician Haul Truck Driver Urology 09/16/23 Aidee Valero PA-C 909 [place], [place] 309935 Assigned Musculoskeletal Provider 04/17/24 Tanisha Marlow 4120 [facility] [address] 03/30/24 documented as of this encounter
== END 2024-06-10 23:44 | disposition home or self-care (01) ==
LOC: ED 23:34
PROVIDERS: Emergency Provider Emergency Medicine Emergency Medical Services; PCP Pediatrics
DX: N31.9 Neuromuscular dysfunction of bladder, unspecified (principal)
CPT/HCPCS: 51701; 99282; 99284

== ENCOUNTER 2024-07-18 21:54 | Emergency (ER) | payer MEDICARE, MEDICAID, SELFPAY ==
--- OUTSIDE RECORDS SUMMARY | 2024-07-18 21:57 | XMS_ITS | Encounter Summary ---
Author Organization [place] Address [address] [place] [address] Care Team Providers Care Financial Management Name Role Phone Carlos Joyner MD Unavailable [phone] Jadon Murray MD Unavailable [phone] Maru Villagomez RN Unavailable Unavailable Ignacia Duran MD Primary Care Provider Ang Slade MD Unavailable [phone] Carlos Joyner MD Unavailable +[phone] Annalise Orta PA-C Unavailable [phone] Ang Slade MD Unavailable [phone] Lakshmi Wilhelm PA-C Unavailable [phone] Heladio Willoughby MD Primary Care Provider [phone] Heladio Willoughby MD Unavailable Alissa Perez PA-C Unavailable [phone] Lakshmi Wilhelm PA-C Unavailable [phone] Aidee Valero PA-C Unavailable [phone] Encounter Details Date Type Department Care Team (Late st Contact Info) Description 07/19/2021 [facility] [place] 393199 [facility] 4th [place] [address] Shyann Rehman Social History Tobacco [...] COVID-19? No / Unsure 06/19/2021 11:16 AM PUBLIC HEALTH REPRESENTATIVE documented as of this encounter Plan of Treatment Upcoming Encounters Date Type Department Care Team (Late st Contact Info) Description 07/21/2024 4:00 PM PUBLIC HEALTH REPRESENTATIVE Office Visit [facility] [address] [place] [phone] [place] [address] [place], [place] [phone] 09/07/2024 8:30 AM CDT Virtual Visit [facility] [address] [phone] Carlos Joyner MD [address] [place] [address] [phone] 09/20/2024 11:00 AM CDT Office Visit [facility] [place] [address] [place] [phone] Sugey Mccoy, GLASS SELECTOR [address] [id number] documented as of this encounter Visit Diagnoses Not on filedocumented in this encounter Additional Health Concerns Infection Onset Date Last Indicated Resolved Time MRSA Comment:Added from external infection. Pt has had Staph infections but never MRSA from Care everywhere chart review. Removing MRSA 9.14.23 06/17/2019 02/06/2023 9:41 AM C DT documented as of this encounter Care Teams Financial Management Relationship Specialty Start Date End Date Ignacia Duran MD PCP - General Pediatrics 01/20/20 03/04/23 [place] [address] [place] [address] PCP - General 03/05/23 Carlos Joyner MD [address] [place] [address] 616835 Urology 12/09/19 Jadon Murray MD [facility] [address] [address] Referring Physician Pediatric Surgery 12/09/19 Maru Villagomez, OTILIO Registered Nurse 12/10/19 Ang Slade MD [address] [place] [address] Urology 04/24/20 Carlos Joyner MD [address] [place] [address] Assigned Surgical Provider 12/24/20 Annalise Orta PA-C 5200 [place] [address] Assigned Cancer Care Provider 05/13/21 11/01/22 Ang Slade MD [address] [place] [address] 213115 Urology 12/18/22 Lakshmi Wilhelm PA-C [address] [place] [address] 611935 Physician Manager Pathology Urology 02/03/23 [place] [address] [place] [address] Assigned PCP 02/06/23 Alissa Perez PA-C [address] [place] [address] 256465 Physician Manager Pathology Surgery 09/04/23 Lakshmi Wilhelm PA-C [address] [place] [address] 466135 Physician Manager Pathology Urology 09/16/23 Aidee Valero PA-C 909 [place], [place] 577555 Assigned Musculoskeletal Provider 04/17/24 Tanisha Marlow 4120 [facility] [address] 03/30/24 documented as of this encounter
--- OUTSIDE RECORDS SUMMARY | 2024-07-18 21:57 | XMS_ITS | Encounter Summary ---
Author Organization [facility] Address [address] [place] [address] Care Team Providers Care 4Th Grade Teacher Name Role Phone Carlos Joyner MD Unavailable [phone] Jadon Murray MD Unavailable [phone] Maru Villagomez RN Unavailable Unavailable Ignacia Duran MD Primary Care Provider Ang Slade MD Unavailable [phone] Carlos Joyner MD Unavailable +[phone] Annalise Orta PA-C Unavailable +[phone] Ang Slade MD Unavailable [phone] Lakshmi Wilhelm-C Unavailable [phone] Heladio Willoughby MD Primary Care Provider [phone] Heladio Willoughby MD Unavailable Alissa Perez PA-C Unavailable [phone] Lakshmi Wilhelm PA-C Unavailable [phone] Aidee Valero PA-C Unavailable [phone] Encounter Details Date Type Department Care Team (Late st Contact Info) Description 04/16/[address] [facility] [address] [place] [address] Berna Britton Social History Tobacco [...] st Contact Info) Description 07/21/2024 4:00 PM FITNESS WORKER Office Visit [facility] [address] [place] [address] [place] [address] [place], [place] [phone] 09/07/2024 8:30 AM CDT Virtual Visit [facility] [address] [place] [phone] Carlos Joyner MD [address] [place] [address] 069715 09/20/2024 11:00 AM CDT Office [facility] [place] [address] [place] [phone] Sugey Mccoy APRN [address] [place], [place] 182984 documented as of this encounter Visit Diagnoses Not on filedocumented in this encounter Additional Health Concerns Infection Onset Date Last Indicated Resolved Time MRSA Comment:Added from external infection. Pt has had Staph infections but never MRSA from Care everywhere chart review. Removing MRSA 02.06.23 06/17/2019 02/06/2023 9:41 AM C DT documented as of this encounter Care Teams 4Th Grade Teacher Relationship Specialty Start Date End Date Ignacia Duran MD PCP - General Pediatrics 01/20/20 03/04/23 [place] [address] [place] [address] PCP - General 03/05/23 Carlos Joyner MD [address] [place] [address]394 Urology 12/09/19 Jadon Murray MD [facility] [address] [address] Referring Physician Pediatric Surgery 12/09/19 Maru Villagomez, RN Registered Nurse 12/10/19 Ang Slade MD [address] [place] [address] Urology 04/24/20 Carlos Joyner MD [address] [place] [address] 10867 Assigned Surgical Provider 12/24/20 Annalise Orta PA-C 5200 [place] [address] Assigned Cancer Care Provider 05/13/21 11/01/22 Ang Slade MD [address] [place] [address] Urology 12/18/22 Lakshmi Wilhelm PA-C [address] [place] [address] 43659 Physician Catalyst Concentration Operator Urology 02/03/23 [place] [address] [facility] [place] [address] Assigned PCP 02/06/23 Alissa Perez PA-C [address] [place] [address] Physician Catalyst Concentration Operator Surgery 09/04/23 Lakshmi Wilhelm PA-C [address] [place] [address] 158295 Physician Catalyst Concentration Operator Urology 09/16/23 Aidee Valero PA-C [address] [place] [address] 876825 Assigned Musculoskeletal Provider 04/17/24 Tanisha Marlow 4120 [facility] [address] 03/30/24 documented as of this encounter
--- OUTSIDE RECORDS SUMMARY | 2024-07-18 21:57 | XMS_ITS | Encounter Summary ---
Author Organization [place] Address [address] [facility] [place] [address] Care Team Providers Care Street Light Wirer Name Role Phone Carlos Joyner MD Unavailable [phone] Jadon Murray MD Unavailable [phone] Maru Villagomez RN Unavailable Unavailable Ang Slade MD Unavailable [phone] Carlos Joyner MD Unavailable +[phone] Ang Slade MD Unavailable [phone] Lakshmi Wilhelm PA-C Unavailable [phone] Heladio Willoughby MD Primary Care Provider [phone] Heladio Willoughby MD Unavailable Alissa Perez PA-C Unavailable [phone] Lakshmi Wilhelm PA-C Unavailable [phone] Aidee Valero PA-C Unavailable [phone] Encounter Details Date Type Department Care Team (Late st Contact Info) Description 03/27/2023 [facility] Medical Advice UR PREOP/PHASE II 2450 [place] [phone] Lisette Salinas RN Social History Tobacco Use [...] st Contact Info) Description 07/21/2024 4:00 PM SUPERVISOR BINDERY Office Visit [facility] [address] [place] [address] [place] [address] [place] [address] 09/07/2024 8:30 AM CDT Virtual Visit [facility] [address] [place] [address] Carlos Joyner MD 909 [place], [place] 821935 09/20/2024 11:00 AM CDT Office Visit [facility] [address] [place] [address] Sugey Mccoy, MANAGER ORANGE MOTION GRAPHICS ARTIST [address] [place] [address] documented as of this encounter Visit Diagnoses Not on filedocumented in this encounter Care Teams Street Light Wirer Relationship Specialty Start [place] [address] [place] [address] PCP - General 03/05/23 Carlos Joyner MD [address] [place] [address] 045175 Urology 12/09/19 Jadon Murray MD [facility] 2530 [facility] 550 [place] [address] Referring Physician Pediatric Surgery 12/09/19 Maru Villagomez, OTILIO Registered Nurse 12/10/19 Ang Slade MD [address] [place] [address] 048065 Urology 04/24/20 Carlos Joyner MD [address] [place] [address] 690975 Assigned Surgical Provider 12/24/20 Ang Slade MD [address] [place] [address] 394 [place], [place] 992765 Urology 12/18/22 Lakshmi Wilhelm PA-C [address] [place] [address] 8[address]75 Physician Gear Room Keeper Urology 02/03/23 [place] [address] [place] [address] Assigned PCP 02/06/23 Alissa Perez PA-C [address] [place] [address] 34352 Physician Gear Room Keeper Surgery 09/04/23 Lakshmi Wilhelm PA-C [address] [place] [address] 27920 Physician Gear Room Keeper Urology 09/16/23 Aidee Valero PA-C [address] [place] [address] 779475 Assigned Musculoskeletal Provider 04/17/24 Tanisha Marlow 4120 [facility] [address] 03/30/24 documented as of this encounter
--- OUTSIDE RECORDS SUMMARY | 2024-07-18 21:57 | XMS_ITS | Encounter Summary ---
Author Organization [place] Address [address] [place] [address] 40456 Care Team Providers Care Medical Parasitologist Name Role Phone Carlos Joyner MD Unavailable [phone] Jadon Murray MD Unavailable [phone] Maru Villagomez RN Unavailable Unavailable Ignacia Duran MD Primary Care Provider Ang Slade MD Unavailable +[phone] Carlos Joyner MD Unavailable [phone] Annalise Orta PA-C Unavailable +[phone] Ang Slade MD Unavailable Lakshmi Wilhelm-C Unavailable [phone] Heladio Willoughby MD Primary Care Provider Heladio Willoughby MD Unavailable Alissa Perez PA-C Unavailable [phone] Lakshmi Wilhelm PA-C Unavailable +[phone] Aidee Valero PA-C Unavailable +[phone] Reason for Visit * Reason Onset Date Comments Patient/info Update 02/26/2021 pt currently intubated, will nto be able to have uro surgery Encounter Details Date Type Department Care Team ([facility] Contact Info) Description 02/26/2021 [facility] Urology Clinic [address] [place] [address] Carlos Joyner MD [address] [place] [address]183 Patient/info Update (pt currently intubated, will nto [...] Lakshmi Chowdhury - 02/26/2021 2:07 PM CDT [facility] Center Phone Message May a detailed message be left on voicemail: yes Reason for Call: Other: Edith called in wanting to let Dr. Joyner and his team know that [facility] date [facility]09[facility]21. Please call back if thereare any questions at [phone] Action Taken: Message routed to: [facility] uro Travel Screening: Not Applicable documented in this encounter Plan of Treatment Upcoming Encounters Date Type Department Care Team (Late st Contact Info) Description 07/21/2024 4:00 PM TURNER IN Office Visit [facility] [address] [place] [address] [place] [address] [place] [address] 09/07/2024 8:30 AM CDT Virtual Visit [facility] Urology Clinic [address] [place] [address] Carlos Joyner MD [address] [place] [address] 09/20/2024 11:00 AM CDT Office Visit [facility] [address] [place] [address] Sugey Mccoy, ENVIRONMENTAL REMEDIATION CONSULTANT [facility] [address] [place] [address] [address] [place], [place] 838694 documented as of this encounter Visit Diagnoses Not on filedocumented in this encounter Additional Health Concerns Infection Onset Date Last Indicated Resolved Time MRSA Comment:Added from external infection. Pt has had Staph infections but never MRSA from Care everywhere chart review. Removing MRSA .14.06/17/2019 02/06/2023 9:41 AM C DT documented as of this encounter Care Teams Medical Parasitologist Relationship Specialty Start Date End Date Ignacia Duran MD PCP - General Pediatrics 01/20/20 03/04/23 [place] [address] [place] [address] PCP - General 03/05/23 Carlos Joyner MD [address] [place] [address] 17446 Urology 12/09/19 Jadon Murray MD [facility] [address] [address] Referring Physician Pediatric Surgery 12/09/19 Maru Villagomez, RN Registered Nurse 12/10/19 Ang Slade MD [address] [place] [address] Urology 04/24/20 Carlos Joyner MD [address] [place] [address] 25521 Assigned Surgical Provider 12/24/20 Annalise Orta PA-C [address] [place] [address] Assigned Cancer Care Provider 05/13/21 11/01/22 Ang Slade MD [address] [place] [address] 9[address] Urology 12/18/22 Lakshmi Wilhelm PA-C [address] [place] [address] 009975 Physician Airdox Fitter Urology 02/03/23 [place] [address] [place] [address] Assigned PCP 02/06/23 Alissa Perez PA-C [address] [place] [address] 860675 Physician Airdox Fitter Surgery 09/04/23 Lakshmi Wilhelm PA-C [address] [place] [address] 933965 Physician Airdox Fitter Urology 09/16/23 Aidee Valero PA-C [address] [place] [address] 612785 Assigned Musculoskeletal Provider 04/17/24 Tanisha Marlow [address] [place] [address] 03/30/24 documented as of this encounter
--- OUTSIDE RECORDS SUMMARY | 2024-07-18 21:57 | XMS_ITS | Encounter Summary ---
Author Organization [place] Address [address] [place] [address] Care Team Providers Care Diesel Powerplant Mechanic Name Role Phone Carlos Joyner MD Unavailable [phone] Jadon Murray MD Unavailable + [phone] Maru Villagomez RN Unavailable Unavailable Ignacia Duran MD Primary Care Provider [phone] Ang Slade MD Unavailable [phone] Carlos Joyner MD Unavailable [phone] Ang Slade MD Unavailable [phone] Lakshmi Wilhelm-C Unavailable [phone] Heladio Willoughby MD Primary Care Provider [phone] Heladio Willoughby MD Unavailable Alissa Peerz PA-C Unavailable [phone] Lakshmi Wilhelm-C Unavailable +[phone] Aidee Valero PA-C Unavailable [phone] Encounter Details Date Type Department Care Team (Late st Contact Info) Description 01/07/[address] [facility] Medical [facility] Urology Clinic [address] [place] [address] Analisa Palacio, OTILIO Social History [...] st Contact Info) Description 07/21/2024 4:00 PM ORDER BOOKER Office Visit [facility] [address] [place] [address] [place] [address] [place] [address] 09/07/2024 8:30 AM CDT Virtual Visit [facility] Urology Clinic [address] [phone] Carlos Joyner MD [address] [place] [address] [id number] 09/20/2024 11:00 AM CDT Office Visit [facility] [address] [phone] Sugey Mccoy, PRINT LINE SUPERVISOR [address] 435224 documented as of this encounter Visit Diagnoses Not on filedocumented in this encounter Additional Health Concerns Infection Onset Date Last Indicated Resolved Time MRSA Comment:Added from external infection. Pt has had Staph infections but never MRSA from Care everywhere chart review. Removing MRSA 9.14.23 06/17/2019 02/06/2023 9:41 AM C DT documented as of this encounter Care Teams Diesel Powerplant Mechanic Relationship Specialty Start Date End Date Ignacia Duran MD PCP - General Pediatrics 01/20/20 03/04/23 [place] [address] [place] [address] PCP - General 03/05/23 Carlos Joyner MD [address] [place] [address] Urology 12/09/19 Jadon Murray MD [facility] [address] [address] Referring Physician Pediatric Surgery 12/09/19 Maru Villagomez, OTILIO Registered Nurse 12/10/19 Ang Slade MD [address] [place] [address]131 Urology 04/24/20 Carlos Joyner MD [address] [place] [address] 42470 Assigned Surgical Provider 12/24/20 Ang Slade MD [address] [place] [address] Urology 12/18/22 Lakshmi Wilhelm PA-C [address] [place] [address] 546225 Physician Chartered Financial Analyst Urology 02/03/23 [place] [address] [place] [address] Assigned PCP 02/06/23 Alissa Perez PA-C [address] [place] [address] 596715 Physician Chartered Financial Analyst Surgery 09/04/23 Lakshmi Wilhelm PA-C [address] [place] [address] 714975 Physician Chartered Financial Analyst Urology 09/16/23 Aidee Valero PA-C [address] [place] [address] 165075 Assigned Musculoskeletal Provider 04/17/24 Tanisha Marlow 4120 [facility] [address] 03/30/24 documented as of this encounter
--- OUTSIDE RECORDS SUMMARY | 2024-07-18 21:57 | XMS_ITS | Encounter Summary ---
Author Organization [place] Address [address] [place] [address] Care Team Providers Care Business Performance Analyst Name Role Phone Carlos Joyner MD Unavailable [phone] Jadon Murray MD Unavailable +[phone] Maru Villagomez RN Unavailable Unavailable Ang Slade MD Unavailable +[phone] Carlos Joyner MD Unavailable +[phone] Ang Slade MD Unavailable +[phone] Lakshmi Wilhelm PA-C Unavailable Heladio Willoughby MD Primary Care Provider [phone] Heladio Willoughby MD Unavailable Alissa Perez PA-C Unavailable [phone] Lakshmi Wilhelm PA-C Unavailable +[phone] Aidee Valero PA-C Unavailable [phone] Encounter Details Date Type Department Care Team (Late st Contact Info) Description 06/25/2023 [facility] Urology Clinic [address] [place] [address] Carlos Joyner MD [address] [place] [address] Social History Tobacco Use Types Packs/Day [...] st Contact Info) Description 07/21/2024 4:00 PM PRIMER BOXER Office Visit [facility] [address] [place] [address] [place] [address] [place] [address] 09/07/2024 8:30 AM CDT Virtual Visit [facility] Urology Clinic [address] [place] [address] Carlos Joyner MD [address] [place] [address] 09/20/2024 11:00 AM CDT Office Visit [facility] [address], [place] [phone] Sugey Mccoy, NASCAR RACER PHYSICAL THERAPY COORDINATOR [address] [place], [place] 0567[address] documented as of this encounter Visit Diagnoses Not on filedocumented in this encounter Care Teams Business Performance Analyst Relationship Specialty Start [place] [address] [place] [address] PCP - General 03/05/23 Carlos Joyner MD [address] [place] [address] 578955 Urology 12/09/19 Jadon Murray MD [facility] 2530 [facility] [address] [place], [place] [phone] Referring Physician Pediatric Surgery 12/09/19 Maru Villagomez, RN Registered Nurse 12/10/19 Ang Slade MD [address] [place] [address] 394 [place] [address] Urology 04/24/20 Carlos Joyner MD [address] [place] [address] 650385 Assigned Surgical Provider 12/24/20 Ang Slade MD [address] [place] [address] 394 [place] [address] Urology 12/18/22 Lakshmi Wilhelm PA-C [address] [place] [address] 949925 Physician Slip Cover Sewer Urology 02/03/23 [place] [address] [place] [address] Assigned PCP 02/06/23 Alissa Perez PA-C [address] [place] [address] 501205 Physician Slip Cover Sewer Surgery 09/04/23 Lakshmi Wilhelm PA-C [address] [place] [address] 073445 Physician Slip Cover Sewer Urology 09/16/23 Aidee Valero PA-C [address] [place] [address] 642245 Assigned Musculoskeletal Provider 04/17/24 Tanisha Marlow 4120 [facility] [address] 03/30/24 documented as of this encounter
--- OUTSIDE RECORDS SUMMARY | 2024-07-18 21:57 | XMS_ITS | Encounter Summary ---
Author Organization [place] Address [address] [place] [address] Care Team Providers Care Donor Relations Manager Name Role Phone Carlos Joyner MD Unavailable [phone] Jadon Murray MD Unavailable [phone] Maru Villagomze RN Unavailable Unavailable Ang Slade MD Unavailable +[phone] Carlos Joyner MD Unavailable [phone] Ang Slade MD Unavailable [phone] Lakshmi Wilhelm-C Unavailable [phone] Heladio Willoughby MD Primary Care Provider [phone] Heladio Willoughby MD Unavailable Alissa Perez PA-C Unavailable [phone] Lakshmi Wilhelm-C Unavailable [phone] Aidee Valero PA-C Unavailable [phone] Encounter Details Date Type Department Care Team (Late st Contact Info) Description 07/01/2023 [facility] Medical Advice [facility] [id number] [place] [address] Joao Arceo MA Social History Tobacco [...] st Contact Info) Description 07/21/2024 4:00 PM PREFORMER IMPREGNATED FABRICS Office Visit [facility] [address] [place] [address] [place] [address] [place], [place] 9123568 09/07/2024 8:30 AM CDT Virtual Visit [facility] Urology Clinic [address] [address] Carlos Joyner MD [address] [place] [address] 875915 09/20/2024 11:00 AM CDT Office Visit [facility] [address] [place] [address] Sugey Mccoy, DEVELOPER PROVER UPHOLSTERING FRAME BUILDER [address] [place] [address] [address] [place] [address] documented as of this encounter Visit Diagnoses Not on filedocumented in this encounter Care Teams Donor Relations Manager Relationship Specialty Start [place] [address] [place] [address] PCP - General 03/05/23 Carlos Joyner MD [address] [place] [address] Urology 12/09/19 Jadon Murray MD [facility] 2530 [facility] [address] [place] [address] Referring Physician Pediatric Surgery 12/09/19 Maru Villagomez, OTILIO Registered Nurse 12/10/19 Ang Slade MD [address] [address] Urology 04/24/20 Carlos Joyner MD [address] [place] [address] 68368 Assigned Surgical Provider 12/24/20 Ang Slade MD [address] [address] Urology 12/18/22 Lakshmi Wilhelm PA-C [address] [place] [address] 102055 Physician Consumer Services Consultant Urology 02/03/23 [place] [address] [place] [address] Assigned PCP 02/06/23 Alissa Perez PA-C [address] [place] [address] 705145 Physician Consumer Services Consultant Surgery 09/04/23 Lakshmi Wilhelm PA-C [address] [place] [address] 061625 Physician Consumer Services Consultant Urology 09/16/23 Aidee Valero PA-C [address] [place] [address] 814025 Assigned Musculoskeletal Provider 04/17/24 Tanisha Marlow 4120 [facility] [address] 03/30/24 documented as of this encounter
--- OUTSIDE RECORDS SUMMARY | 2024-07-18 21:57 | XMS_ITS | Encounter Summary ---
Author Organization [place] Address [address] [place] [address] 80083 Care Team Providers Care Orthopedic Assistant Name Role Phone Carlos Joyner MD Unavailable [phone] Jadon Murray MD Unavailable [phone] Maru Villagomez RN Unavailable Unavailable Ang Slade MD Unavailable [phone] Carlos Joyner MD Unavailable +[phone] Ang Slade MD Unavailable +[phone] Lakshmi Wilhelm PA-C Unavailable [phone] Heladio Willoughby MD Primary Care Provider [phone] Heladio Willoughby MD Unavailable Alissa Perez PA-C Unavailable [phone] Lakshmi Wilhelm PA-C Unavailable [phone] Aidee Valero PA-C Unavailable [phone] Encounter Details Date Type Department Care Team (Late st Contact Info) Description 06/23/2024 [facility] Urology Clinic [address] [place] [address] Carlos Joyner MD [address] [place] [address] Social History Tobacco Use Types Packs/Day [...] st Contact Info) Description 07/21/2024 4:00 PM UROLOGY TEACHER Office Visit [facility] [address] [place] [address] [place] [address] [place] [address] 09/07/2024 8:30 AM CDT Virtual Visit [facility] Urology Clinic [address] [place] [address] Carlos Joyner MD [address] [place] [address] 09/20/2024 11:00 AM CDT Office Visit [facility] [address], [place] [address] Sugey Mccoy, GREIGE MENDER SEO EXPERT [address] [place], [place] 2325[address] documented as of this encounter Visit Diagnoses Not on filedocumented in this encounter Care Teams Orthopedic Assistant Relationship Specialty Start [place] [address] [place] [address] PCP - General 03/05/23 Carlos Joyner MD [address] [place] [address] 730835 Urology 12/09/19 Jadon Murray MD [facility] 2530 [facility] [address] [place], [place] 714[address] Referring Physician Pediatric Surgery 12/09/19 Maru Villagomez, RN Registered Nurse 12/10/19 Ang Slade MD [address] [place] [address] 394 [place] [address] Urology 04/24/20 Carlos Joyner MD [address] [place] [address] 199845 Assigned Surgical Provider 12/24/20 Ang Slade MD [address] [place] [address] 394 [place] [address] Urology 12/18/22 Lakshmi Wilhelm PA-C [address] [place] [address] 263335 Physician Scientific Research Manager Urology 02/03/23 [place] [address] [facility] [place] [address] Assigned PCP 02/06/23 Alissa Perez PA-C [address] [place] [address] 246745 Physician Scientific Research Manager Surgery 09/04/23 Lakshmi Wilhelm PA-C [address] [place] [address] 334755 Physician Scientific Research Manager Urology 09/16/23 Aidee Valero PA-C [address] [place] [address] 655235 Assigned Musculoskeletal Provider 04/17/24 Tanisha Marlow 4120 [facility] [address] 03/30/24 documented as of this encounter
--- OUTSIDE RECORDS SUMMARY | 2024-07-18 21:57 | XMS_ITS | Encounter Summary ---
Author Organization [place] Address [address] [place] [address]. [place] [address] Care Team Providers Care Supervisor Painting Name Role Phone Carlos Joyner MD Unavailable [phone] Jadon Murray MD Unavailable [phone] Maru Villagomez RN Unavailable Unavailable Ang Slade MD Unavailable +[phone] Carlos Joyner MD Unavailable +[phone] Ang Slade MD Unavailable +[phone] Lakshmi Wilhelm PA-C Unavailable +[phone] Heladio Willoughby MD Primary Care Provider [phone] Heladio Willoughby MD Unavailable Alissa Perez PA-C Unavailable [phone] Lakshmi Wilhelm PA-C Unavailable [phone] Aidee Valero PA-C Unavailable [phone] Encounter Details Date Type Department Care Team (Late st Contact Info) Description 04/08/2023 [facility] Medical Advice [facility] Urology Clinic [address] [place] [address] Rosita Velasco, RN Social History [...] in an overnight mcc, or couch-surfing.) Yes 04/11/2023 Are you worried [...] Contact Info) Description 07/21/2024 4:00 PM SUPERVISOR PORCELAIN DEPARTMENT Office Visit [facility] [address] [place] [address] [place] [address] [place], [place] 2888268 09/07/2024 8:30 AM CDT Virtual Visit [facility] Urology Clinic [address] [address] Carlos Joyner MD [address] [place] [address] 81681455 09/20/2024 11:00 AM CDT Office Visit [facility] [address] [place] [address] Sugey Mccoy, BARREL LINER PUBLIC HOUSING MANAGER [address] [place] [address] [address] [place] [address] documented as of this encounter Visit Diagnoses Not on filedocumented in this encounter Care Teams Supervisor Painting Relationship Specialty Start [place] [address] [place] [address] PCP - General 03/05/23 Carlos Joyner MD [address] [place] [address] Urology 12/09/19 Jadon Murray MD [facility] 2530 [facility] [address] [place] [address] Referring Physician Pediatric Surgery 12/09/19 Maru Villagomez, OTILIO Registered Nurse 12/10/19 Ang Slade MD [address] [address] Urology 04/24/20 Carlos Joyner MD [address] [place] [address] 6[address] Assigned Surgical Provider 12/24/20 Ang Slade MD [address] [address] Urology 12/18/22 Lakshmi Wilhelm PA-C [address] [place] [address] 540855 Physician Civil Process Server Urology 02/03/23 [place] [address] [place] [address] Assigned PCP 02/06/23 Alissa Perez PA-C [address] [place] [address] 714605 Physician Civil Process Server Surgery 09/04/23 Lakshmi Wilhelm PA-C [address] [place] [address] 437245 Physician Civil Process Server Urology 09/16/23 Aidee Valero PA-C [address] [place] [address] 339595 Assigned Musculoskeletal Provider 04/17/24 Tanisha Marlow 4120 [facility] [address] 03/30/24 documented as of this encounter
--- OUTSIDE RECORDS SUMMARY | 2024-07-18 21:57 | XMS_ITS | Encounter Summary ---
Author Organization [place] Address [address] [place] [address] Care Team Providers Care Sleeping Car Porter Name Role Phone Carlos Joyner MD Unavailable [phone] Jadon Murray MD Unavailable [phone] Maru Villagomez RN Unavailable Unavailable Ang Slade MD Unavailable +[phone] Carlos Joyner MD Unavailable +[phone] Ang Slade MD Unavailable [phone] Lakshmi Wilhelm-C Unavailable +[phone] Heladio Willoughby MD Primary Care Provider [phone] Heladio Willoughby MD Unavailable Alissa Perez PA-C Unavailable [phone] Lakshmi Wilhelm-C Unavailable [phone] Aidee Valero PA-C Unavailable [phone] Encounter Details Date Type Department Care Team (Late st Contact Info) Description 09/08/2023 [facility] Medical Advice [address] [address] Bhavna Ferris Social History Tobacco [...] st Contact Info) Description 07/21/2024 4:00 PM WHEEL BUFFER Office Visit [facility] [address] [place] [address] [place] [address] [place], [place] 8471768 09/07/2024 8:30 AM CDT Virtual Visit [facility] Urology Clinic [address] [address] Carlos Joyner MD [address] [place] [address] 17411455 09/20/2024 11:00 AM CDT Office Visit [facility] [address] [place] [address] Sugey Mccoy, COUNTER CLERK VULCANIZER [address] [place] [address] [address] [place] [address] documented as of this encounter Visit Diagnoses Not on filedocumented in this encounter Care Teams Sleeping Car Porter Relationship Specialty Start [place] [address] [place] [address] PCP - General 03/05/23 Carlos Joyner MD [address] [place] [address] Urology 12/09/19 Jadon Murray MD [facility] 2530 [facility] [address] [place] [address] Referring Physician Pediatric Surgery 12/09/19 Maru Villagomez, OTILIO Registered Nurse 12/10/19 Ang Slade MD [address] [address] Urology 04/24/20 Carlos Joyner MD [address] [place] [address] Assigned Surgical Provider 12/24/20 Ang Slade MD [address] [address] Urology 12/18/22 Lakshmi Wilhelm PA-C [address] [place] [address] 332535 Physician Audio/Video Technician Urology 02/03/23 [place] [address] [place] [address] Assigned PCP 02/06/23 Alissa Perez PA-C [address] [place] [address] 883265 Physician Audio/Video Technician Surgery 09/04/23 Lakshmi Wilhelm PA-C [address] [place] [address] 076005 Physician Audio/Video Technician Urology 09/16/23 Aidee Valero PA-C [address] [place] [address] 133925 Assigned Musculoskeletal Provider 04/17/24 Tanisha Marlow 4120 [facility] [address] 03/30/24 documented as of this encounter
--- OUTSIDE RECORDS SUMMARY | 2024-07-18 21:57 | XMS_ITS | Encounter Summary ---
Author Organization [facility] Address [address] [place] [address] Care Team Providers Care Tattoo Identifier Name Role Phone Carlos Joyner MD Unavailable [phone] Jadon Murray MD Unavailable [phone] Maru Villagomez RN Unavailable Unavailable Ang Slade MD Unavailable [phone] Carlos Joyner MD Unavailable [phone] Ang Slade MD Unavailable [phone] Lakshmi Wilhelm PA-C Unavailable [phone] Heladio Willoughby MD Primary Care Provider [phone] Heladio Willoughby MD Unavailable Alissa Perez PA-C Unavailable [phone] Lakshmi Wilhelm-C Unavailable [phone] Aidee Valero PA-C Unavailable [phone] Encounter Details Date Type Department Care Team (Late st Contact Info) Description 08/18/2023 [facility] [place] [facility] [address] [place] [address] Analisa Conner Social History Tobacco Use [...] st Contact Info) Description 07/21/2024 4:00 PM BASEBALL INSPECTOR AND REPAIRER Office Visit [facility] [address] [place] [phone] [place] [address] [place] [address] 09/07/2024 8:30 AM CDT Virtual Visit [facility] Clinic [address] [address] Carlos Joyner MD [address] [place] [address] 747075 09/20/2024 11:00 AM CDT Office Visit [facility] [address] [place] [phone] Sugey Mccoy, MENTAL HEALTH ASSISTANT [facility] [address] [place], [place] [address]E [address] [place], [place] [address] documented as of this encounter Visit Diagnoses Not on filedocumented in this encounter Care Teams Tattoo Identifier Relationship Specialty [place] [address] [place] [address] PCP - General 03/05/23 Carlos Joyner MD [address] [place] [address] Urology 12/09/19 Jadon Murray MD [facility] 2530 [facility] [address] [place] [address] Referring Physician Pediatric Surgery 12/09/19 Maru Villagomez, OTILIO Registered Nurse 12/10/19 Ang Slade MD [address] [place] [address] 800255 Urology 04/24/20 Carlos Joyner MD [address] [place] [address]14 Assigned Surgical Provider 12/24/20 Ang Slade MD [address] [place] [address] Urology 12/18/22 Lakshmi Wilhelm PA-C [address] [place] [address] 248435 Physician Water Pump Assembler Urology 02/03/23 [place] [address] [place] [address] Assigned PCP 02/06/23 Alissa Perez PA-C [address] [place] [address] 633305 Physician Water Pump Assembler Surgery 09/04/23 Lakshmi Wilhelm PA-C [address] [place] [address] 176195 Physician Water Pump Assembler Urology 09/16/23 Aidee Valero PA-C [address] [place] [address] 239985 Assigned Musculoskeletal Provider 04/17/24 Tanisha Marlow 4120 [facility] [address] 03/30/24 documented as of this encounter
--- OUTSIDE RECORDS SUMMARY | 2024-07-18 21:57 | XMS_ITS | Encounter Summary ---
Author Organization [facility] Address [address] [place] [address] Care Team Providers Care Therapy Manager Name Role Phone Carlos Joyner MD Unavailable [phone] Jadon Murray MD Unavailable [phone] Maru Villagomez RN Unavailable Unavailable Ignacia Duran MD Primary Care Provider Ang Slade MD Unavailable [phone] Carlos Joyner MD Unavailable +[phone] Annalise Orta PA-C Unavailable [phone] Ang Slade MD Unavailable [phone] Lakshmi Wilhelm-C Unavailable [phone] Heladio Willoughby MD Primary Care Provider [phone] Heladio Willoughby MD Unavailable Alissa Perez PA-C Unavailable [phone] Lakshmi Wilhelm PA-C Unavailable [phone] Aidee Valero PA-C Unavailable [phone] Encounter Details Date Type Department Care Team (Late st Contact Info) Description 06/19/2021 [facility] [facility] U[facility] Clinic [address] [address] Jenna Mcfadden, RN Social History [...] COVID-19? No / Unsure 06/19/2021 11:16 AM COMMERCIAL CENTER MANAGER documented as of this encounter Plan of Treatment Upcoming Encounters Date Type Department Care Team (Late st Contact Info) Description 07/21/2024 4:00 PM COMMERCIAL CENTER MANAGER Office Visit [facility] [address] [place] [phone] [place] [address] [place], [place] [phone] 09/07/2024 8:30 AM CDT Virtual Visit [facility] Urology Clinic [address] [place] [phone] Carlos Joyner MD [address] [place] [address] 211455 09/20/2024 11:00 AM CDT Office Visit [facility] Sleep Center [address] [phone] Sugey Mccoy, PIPING DRAFTER [address] [phone] documented as of this encounter Visit Diagnoses Not on filedocumented in this encounter Additional Health Concerns Infection Onset Date Last Indicated Resolved Time MRSA Comment:Added from external infection. Pt has had Staph infections but never MRSA from Care everywhere chart review. Removing MRSA 9.14.23 06/17/2019 02/06/2023 9:41 AM C DT documented as of this encounter Care Teams Therapy Manager Relationship Specialty Start Date End Date Ignacia Duran MD PCP - General Pediatrics 01/20/20 03/04/23 [place] [address] [place] [address] PCP - General 03/05/23 Carlos Joyner MD [address] [place] [address] Urology 12/09/19 Jadon Murray MD [facility] [address] [address] Referring Physician Pediatric Surgery 12/09/19 Maru Villagomez, RN Registered Nurse 12/10/19 Ang Slade MD [address] [place] [address] Urology 04/24/20 Carlos Joyner MD [address] [place] [address] Assigned Surgical Provider 12/24/20 Annalise Orta PA-C 5200 [place] [address] Assigned Cancer Care Provider 05/13/21 11/01/22 Ang Slade MD [address] [place] [address] 441455 Urology 12/18/22 Lakshmi Wilhelm PA-C [address] [place] [address] 571535 Physician Asphalt Patcher Urology 02/03/23 [place] [address] [place] [address] Assigned PCP 02/06/23 Alissa Perez PA-C [address] [place] [address] 738725 Physician Asphalt Patcher Surgery 09/04/23 Lakshmi Wilhelm PA-C [address] [place] [address] 049535 Physician Asphalt Patcher Urology 09/16/23 Aidee Valero PA-C 909 [place], [place] 108755 Assigned Musculoskeletal Provider 04/17/24 Tanisha Marlow 4120 [facility] [address] 03/30/24 documented as of this encounter
--- OUTSIDE RECORDS SUMMARY | 2024-07-18 21:57 | XMS_ITS | Encounter Summary ---
Author Organization [facility] Address [address] [place] [address]. [place] [address] Care Team Providers Care Flap Presser Name Role Phone Carlos Joyner MD Unavailable [phone] Jadon Murray MD Unavailable [phone] Maru Villagomez RN Unavailable Unavailable Ang Slade MD Unavailable [phone] Carlos Joyner MD Unavailable [phone] Ang Slade MD Unavailable [phone] Lakshmi Wilhelm PA-C Unavailable [phone] Heladio Willoughby MD Primary Care Provider [phone] Heladio Willoughby MD Unavailable Alissa Perez PA-C Unavailable [phone] Lakshmi Wilhelm PA-C Unavailable [phone] Aidee Valero PA-C Unavailable [phone] Encounter Details Date Type Department Care Team (Late st Contact Info) Description 05/05/2023 [facility] [place] [facility] [address] [place] [address] Rosita Velasco, RN Social History [...] Date Recorded Do you have housing? (Joey ocrdero is defined as stable permanent housing and [...] st Contact Info) Description 07/21/2024 4:00 PM DIE REPAIR MACHINIST Office Visit [facility] [address] [place] [address] [place] [address] [place], [place] [phone] 09/07/2024 8:30 AM CDT Virtual Visit [facility] [address] [address] Carlos Joyner MD [address] [place] [address] [id number] 09/20/2024 11:00 AM CDT Office Visit [facility] [address] [place] [address] Sugey Mccoy, 7TH GRADE SOCIAL STUDIES TEACHER NETWORK SYSTEMS CONSULTANT [address] [place] [address] [address] [place] [address] documented as of this encounter Visit Diagnoses Not on filedocumented in this encounter Care Teams Flap Presser Relationship Specialty Start [place] [address] [place] [address] PCP - General 03/05/23 Carlos Joyner MD [address] [place] [address] Urology 12/09/19 Jadon Murray MD [facility] 2530 [facility] [address]ANC[address] 550 [place] [address] Referring Physician Pediatric Surgery 12/09/19 Maru Villagomez, OTILIO Registered Nurse 12/10/19 Ang Slade MD [address] [address] Urology 04/24/20 Carlos Joyner MD [address] [place] [address] Assigned Surgical Provider 12/24/20 Ang Slade MD [address] [address] Urology 12/18/22 Lakshmi Wilhelm PA-C [address] [place] [address] 083795 Physician Assistant Hvac Mechanic Urology 02/03/23 [place] [address] [place] [address] Assigned PCP 02/06/23 Alissa Perez PA-C [address] [place] [address] 241965 Physician Assistant Hvac Mechanic Surgery 09/04/23 Lakshmi Wilhelm PA-C [address] [place] [address] 681335 Physician Assistant Hvac Mechanic Urology 09/16/23 Aidee Valero PA-C [address] [place] [address] 004825 Assigned Musculoskeletal Provider 04/17/24 Tanisha Marlow 4120 [facility] [address] 03/30/24 documented as of this encounter
--- OUTSIDE RECORDS SUMMARY | 2024-07-18 21:57 | XMS_ITS | Encounter Summary ---
Author Organization [facility] Address [address] [place] [address] Care Team Providers Care District Scout Executive Name Role Phone Carlos Joyner MD Unavailable [phone] Jadon Murray MD Unavailable + [phone] Maru Villagomez RN Unavailable Unavailable Ignacia Duran MD Primary Care Provider [phone] Ang Slade MD Unavailable [phone] Carlos Joyner MD Unavailable [phone] Ang Slade MD Unavailable [phone] Lakshmi Wilhelm-C Unavailable [phone] Heladio Willoughby MD Primary Care Provider [phone] Heladio Willoughby MD Unavailable Alissa Perez PA-C Unavailable [phone] Lakshmi Wilhelm-C Unavailable [phone] Aidee Valero PA-C Unavailable [phone] Encounter Details Date Type Department Care Team (Late st Contact Info) Description 01/06/2023 [facility] [place] [facility] [address] [address] Lisette Mariee Social History Tobacco [...] st Contact Info) Description 07/21/2024 4:00 PM COUNSELOR EDUCATION PROFESSOR Office Visit [facility] [address] [place] [address] [place] [address] [place] [address] 09/07/2024 8:30 AM CDT Virtual Visit [facility] Urology Clinic [address] [place] [phone] Carlos Joyner MD [address] [place] [address] [phone] 09/20/2024 11:00 AM CDT Office Visit [facility] Sleep Center [address] [phone] Sugey Mccoy, DIRECTOR DATA [address] 328464 documented as of this encounter Visit Diagnoses Not on filedocumented in this encounter Additional Health Concerns Infection Onset Date Last Indicated Resolved Time MRSA Comment:Added from external infection. Pt has had Staph infections but never MRSA from Care everywhere chart review. Removing MRSA .14.06/17/2019 02/06/2023 9:41 AM C DT documented as of this encounter Care Teams District Scout Executive Relationship Specialty Start Date End Date Ignacia Duran MD PCP - General Pediatrics 01/20/20 03/04/23 [place] [address] [place] [address] PCP - General 03/05/23 Carlos Joyner MD [address] [place] [address] Urology 12/09/19 Jadon Murray MD [facility] [address] [address] Referring Physician Pediatric Surgery 12/09/19 Maru Villagomez, OTILIO Registered Nurse 12/10/19 Ang Slade MD [address] [place] [address] Urology 04/24/20 Carlos Joyner MD [address] [place] [address] Assigned Surgical Provider 12/24/20 Ang Slade MD [address] [place] [address] Urology 12/18/22 Lakshmi Wilhelm PA-C [address] [place] [address] 616365 Physician Sea Shell Gatherer Urology 02/03/23 [place] [address] [place] [address] Assigned PCP 02/06/23 Alissa Perez PA-C [address] [place] [address] 914335 Physician Sea Shell Gatherer Surgery 09/04/23 Lakshmi Wilhelm PA-C [address] [place] [address] 650785 Physician Sea Shell Gatherer Urology 09/16/23 Aidee Valero PA-C [address] [place] [address] 931905 Assigned Musculoskeletal Provider 04/17/24 Tanisha Marlow 4120 [facility] [address] 03/30/24 documented as of this encounter
--- OUTSIDE RECORDS SUMMARY | 2024-07-18 21:57 | XMS_ITS | Encounter Summary ---
Author Organization [facility] Address [address] [place] [address]. [place] [address] Care Team Providers Care Ham Curer Name Role Phone Carlos Joyner MD Unavailable [phone] Jadon Murray MD Unavailable [phone] Maru Villagomez RN Unavailable Unavailable Ang Slade MD Unavailable [phone] Carlos Joyner MD Unavailable [phone] Ang Slade MD Unavailable [phone] Lakshmi Wilhelm-C Unavailable [phone] Heladio Willoughby MD Primary Care Provider [phone] Heladio Willoughby MD Unavailable Alissa Perez PA-C Unavailable [phone] Lakshim Wilhelm-C Unavailable [phone] Aidee Valero PA-C Unavailable [phone] Reason for Visit * Reason Onset Date Comments Orders 06/22/2024 Encounter Details Date Type Department Care Team (Late st Contact Info) Description 06/22/2024 Telephone [facility] [address] [place] [address] [place] [address] [place] [address] Orders Social History Tobacco Use [...] Miscellaneous Notes * Telephone Encounter - Tanisha Quiros RN - 06/24/2024 7:55 AM CST Returned call to [facility] with [employer], left detailed VM with order approval per provider. Tanisha Quiros RN on 06/24/2024 at 7:56 AM CIATE AGENT INSURANCE SALES * Telephone Encounter - Heladio Willoughby MD - 06/24/2024 5:49 AM CST Verbal order given. Thanks, Heladio Willoughby MD [facility] 06/24/2024 CIATE AGENT INSURANCE SALES * Telephone Encounter - Ileana Lieberman RN - 06/22/2024 3:46 PM CST Received call from Vanessa at [employer] Requesting verbal order from Dr Heladio Willoughby for 30 Peristeen Catheters to be dispensed and shipped yodit. Under current DME order, unable to ship until end of June (3 month supply at a time), patient recently moved to new home and supplies were lost during move. Please call Vanessa back with provider approval of verbal order. Ok to leave detailed message if needed. CIATE AGENT INSURANCE SALES documented in this encounter Plan of Treatment Upcoming Encounters Date Type Department Care Team (Late st Contact Info) Description 07/21/2024 4:00 PM ASSOCIATE AGENT INSURANCE SALES Office Visit [facility] [address] [place] [phone] [place] [address] [place], [place] 1759168 09/07/2024 8:30 AM CDT Virtual Visit [facility] Urology Clinic [address] [place] [phone] Carlos Joyner MD [address] [place] [address] 388985 09/20/2024 11:00 AM CDT Office Visit [facility] Sleep Center [address] [phone] Sugey Mccoy APRN [address] [phone] documented as of this encounter Procedures Procedure Name Priority Date/Time Associated Diagnosis Comments ROUTINE UA WITH MICROSCOPIC Routine 06/25/2024 9:14 AM ASSOCIATE AGENT INSURANCE SALES Recurrent UTI URINE MICROSCOPIC EXAM Routine 06/25/2024 9:14 AM ASSOCIATE AGENT INSURANCE SALES Recurrent UTI URINE CULTURE Routine 06/25/2024 9:14 AM ASSOCIATE AGENT INSURANCE SALES Recurrent UTI documented in this encounter Results * (ABNORMAL) Urine Microscopic Exam (06/25/2024 9:14 AM ASSOCIATE AGENT INSURANCE SALES) Bacteria Urine Many(A) None Seen /HPF LINDA 06/25/2024 9:20 AM ASSOCIATE AGENT INSURANCE SALES RM LABORATORY RBC Urine 2-5(A) 0-2 /HPF /HPF LINDA 06/25/2024 9:20 AM ASSOCIATE AGENT INSURANCE SALES RM LABORATORY WBC Urine 10-25(A) 0-5 /HPF /HPF LINDA 06/25/2024 9:20 AM ASSOCIATE AGENT INSURANCE SALES RM LABORATORY Amorphous Crystals Urine Few(A) None Seen /HPF LINDA 06/25/2024 9:20 AM ASSOCIATE AGENT INSURANCE SALES RM LABORATORY Urine URINE SPECIMEN FROM URINARY CONDUIT / Unknown Non-blood Collection / Unknown 06/25/2024 9:14 AM ASSOCIATE AGENT INSURANCE SALES 06/25/2024 9:15 AM ASSOCIATE AGENT INSURANCE SALES Carlos Joyner MD LAB - URINE ORDERABLES Fin al Result LABORATORY [facility] [place] [facility] [address] [facility] (no room number, 1st floor of clinic) [place] [address], [facility] * (ABNORMAL) Urine Culture (06/25/2024 9:14 AM ASSOCIATE AGENT INSURANCE SALES) Culture >100,000 CFU/mL Staphylococcus epidermidis(A) LINDA 06/28/2024 6:49 AM ASSOCIATE AGENT INSURANCE SALES [facility] Culture 50,000-100,000 CFU/mL Staphylococcus epidermidis(A) 06/28/2024 6:49 AM ASSOCIATE AGENT INSURANCE SALES [facility] Urine URINE SPECIMEN OBTAINED VIA INDWELLING URINARY CATHETER / Unknown Non-blood Collection / Unknown 06/25/2024 9:14 AM ASSOCIATE AGENT INSURANCE SALES 06/25/2024 9:15 AM ASSOCIATE AGENT INSURANCE SALES Narrative Organism Antibiotic Method Susceptibility Staphylococcus epidermidis Oxacillin LINDA >=4 ug/mL: Resistant Comment:Oxacillin skaggs sceptible isolates are susceptible to cephalosporins (example: cefazolin and cephalexin) and beta lactam combination agents. Oxacillin resistant isolates are resistant to these agents. Staphylococcus epidermidis Gentamicin LINDA 2 ug/mL: Susceptible Staphylococcus epidermidis Ciprofloxacin LINDA >=8 ug/mL: Resistant Staphylococcus epidermidis Levofloxacin LINDA 4 ug/mL: Resistant Staphylococcus epidermidis Vancomycin LINDA 2 ug/mL: Susceptible Staphylococcus epidermidis Daptomycin LINDA 0.5 ug/mL: Susceptible Staphylococcus epidermidis Tetracycline LINDA >=16 ug/mL: Resistant Staphylococcus epidermidis Doxycycline LINDA 8 ug/mL: Intermediate Staphylococcus epidermidis Nitrofurantoin LINDA <=16 ug/mL: Susceptible Staphylococcus epidermidis Trimethoprim/ Sulfamethoxaz ole LINDA Susceptible Comment:Antibiotics listed a s No Interpretation have no regulatory guidelines for susceptibility/resistance available. Staphylococcus epidermidis Oxacillin LINDA 2 ug/mL: Resistant Comment:Oxacillin skaggs sceptible isolates are susceptible to cephalosporins (example: cefazolin and cephalexin) and beta lactam combination agents. Oxacillin resistant isolates are resistant to these agents. Staphylococcus epidermidis Gentamicin LINDA 8 ug/mL: Intermediate Staphylococcus epidermidis Ciprofloxacin LINDA >=8 ug/mL: Resistant Staphylococcus epidermidis Levofloxacin LINDA 4 ug/mL: Resistant Staphylococcus epidermidis Vancomycin LINDA <=0.5 ug/mL: Susceptible Staphylococcus epidermidis Daptomycin LINDA 0.25 ug/mL: Susceptible Staphylococcus epidermidis Tetracycline LINDA 2 ug/mL: Susceptible Staphylococcus epidermidis Doxycycline LINDA 2 ug/mL: Susceptible Staphylococcus epidermidis Nitrofurantoin LINDA <=16 ug/mL: Susceptible Staphylococcus epidermidis Trimethoprim/ Sulfamethoxaz ole LINDA Susceptible Comment:Antibiotics listed a s No Interpretation have no regulatory guidelines for susceptibility/resistance available. us Carlos Joyner MD LAB - MICRO GENERAL ORDERA BLES Final Result [facility] Inf. Diseases Diag. Lab 500 [facility], [address] [place] [id number] * (ABNORMAL) UA with Microscopic (06/25/2024 9:14 AM ASSOCIATE AGENT INSURANCE SALES) Color Urine Yellow Colorless, Straw, Light Yellow, Yellow 06/25/2024 9:19 AM ASSOCIATE AGENT INSURANCE SALES LABORATORY Appearance Urine Cloudy(A) Clear 06/25/19 25 9:19 AM [facility] Glucose Urine Negative Negative mg/dL 06/25/2024 9:19 AM [facility] Bilirubin Urine Negative Negative 9:19 AM [facility] Ketones Urine Negative Negative mg/dL 06/25/2024 9:19 AM [facility] Specific [place] Urine 1.020 1.003 - 1.035 06/25/2024 9:19 AM [facility] Blood Urine Small(A) Negative 06/25/2024 9:19 AM [facility] pH Urine 6.0 5.0 - 7.0 06/25/2024 9:19 AM [facility] Protein Albumin Urine Negative Negative mg/dL 06/25/2024 9:19 AM [facility] Urobilinogen Urine 0.2 0.2, 1.0 E.U./dL 06/25/2024 9:19 AM [facility] Nitrite Urine Positive(A) Negative 06/25/2024 9:19 AM [facility] Leukocyte Esterase Urine Small(A) Negative 06/25/2024 9:19 AM [facility] Urine URINE SPECIMEN FROM URINARY CONDUIT / Unknown Non-blood Collection / Unknown 06/25/2024 9:14 AM ASSOCIATE AGENT INSURANCE SALES 06/25/2024 9:15 AM [facility] us Carlos Joyner MD LAB - URINE ORDERABLES Fin al Result LABORATORY [facility] [address] [facility] (no room number, 1st floor of clinic) [place] [id number] documented in this encounter Visit Diagnoses Diagnosis Recurrent UTI Urinary tract infection, site not specified documented in this encounter Care Teams Ham Curer Relationship Specialty [place] [address] [place] [address] PCP - General 03/05/23 Carlos Joyner MD [address] [place] [address] Urology 12/09/19 Jadon Murray MD [facility] 2530 [facility] 550 [place] [address] Referring Physician Pediatric Surgery 12/09/19 Maru Villagomez, RN Registered Nurse 12/10/19 Ang Slade MD 420 [facility] [address] [place], [place] 083675 Urology 04/24/20 Carlos Joyner MD [address] [place] [address] [phone] Assigned Surgical Provider 12/24/20 Ang Slade MD [address] [place] [address] [address] [place], [place] 964925 MD Urology 12/18/22 Lakshmi Wilhelm PA-C [address] [place] [address] 618245 Physician Media Marketing Manager Urology 02/03/23 [place] [address] [place] [address] Assigned PCP 02/06/23 Alissa Perez PA-C [address] [place] [address] 198295 Physician Media Marketing Manager Surgery 09/04/23 Lakshmi Wilhelm PA-C [address] [place] [address] 038125 Physician Media Marketing Manager Urology 09/16/23 Aidee Valero PA-C [address] [place] [address] Assigned Musculoskeletal Provider 04/17/24 Tanisha Marlow 4120 [facility] [place] [address] 03/30/24 documented as of this encounter
--- OUTSIDE RECORDS SUMMARY | 2024-07-18 21:57 | XMS_ITS | Encounter Summary ---
Author Organization [facility] Address [address] [place] [address] Care Team Providers Care Tool Repairer Name Role Phone Carlos Joyner MD Unavailable +[phone] Jadon Murray MD Unavailable [phone] Maru Villagomez RN Unavailable Unavailable Ignacia Duran MD Primary Care Provider [phone] Carlos Joyner MD Unavailable +[phone] Ang Slade MD Unavailable +[phone] Ang Slade MD Unavailable +[phone] Carlos Joyner MD Unavailable +[phone] Annalise Orta PA-C Unavailable [phone] Ang Slade MD Unavailable +[phone] Lakshmi Wilhelm-C Unavailable +[phone] Heladio Willoughby MD Primary Care Provider [phone] Heladio Willoughby MD Unavailable Alissa Perez PA-C Unavailable [phone] Lakshmi Wilhelm-C Unavailable [phone] Aidee Valero PA-C Unavailable +[phone] Reason for Visit * Reason Onset Date Comments Call Back 06/07/2020 Stent FYI Encounter Details Date Type Department Care Team (Late st Contact Info) Description 06/07/2020 [facility] [place] [address] [facility] 4th [place] [phone] Ang Slade MD 420 [facility] 394 [place] [address] Call Back (Stent FYI) Social History Tobacco [...] them back message sent to [email or web address] CHER * Telephone Encounter - Zo Geiger - 06/07/2020 3:16 PM CST [facility] Phone Message May a detailed message be left on voicemail: yes Reason for Call: Other: Cristine calling to let us know that Laina's stent was put in by a providerat [facility] in the Emergency room on 02/04. Cristine is hoping to get a call back to discuss. Action Taken: Message routed to: [facility] Urology Travel Screening: Not Applicable CHER documented in this encounter Plan of Treatment Upcoming Encounters Date Type Department Care Team (Late st Contact Info) Description 07/21/2024 4:00 PM BRANCHER Office Visit [facility] [address] [place] [address] [place] [address] [place] [address] 09/07/2024 8:30 AM CDT Virtual Visit [facility] [place] [address] [facility] 4th [place] [phone] Carlos Joyner MD [address] [place] [address] 276795 09/20/2024 11:00 AM CDT Office Visit [facility] [address] [place] [address] Sugey Mccoy, HEAD OF PRODUCT [facility] [address] [place] [address] [address] [place], [place] 499304 documented as of this encounter Visit Diagnoses Not on filedocumented in this encounter Additional Health Concerns Infection Onset Date Last Indicated Resolved Time MRSA Comment:Added from external infection. Pt has had Staph infections but never MRSA from Care everywhere chart review. Removing MRSA 1406/17/2019 02/06/2023 9:41 AM C DT documented as of this encounter Care Teams Tool Repairer Relationship Specialty Start Date End Date Ignacia Duran MD PCP - General Pediatrics 01/20/20 03/04/23 [place] [address] [place] [address] PCP - General 03/05/23 Carlos Joyner MD [address] [place] [address] Urology 12/09/19 Jadon Murray MD [facility] 2530 [facility] 550 [place] [address] Referring Physician Pediatric Surgery 12/09/19 Maru Villagomez, RN Registered Nurse 12/10/19 Carlos Joyner MD 909 [place] [address] Assigned Surgical Provider 03/17/20 Ang Slade MD 420 [facility] 394 [place] [address] Urology 04/24/20 Ang Slade MD 420 [facility] 394 [place], [place] 606035 Assigned Surgical Provider 08/13/20 Carlos Joyner MD [address] [place] [address] 474585 Assigned Surgical Provider 12/24/20 Annalise Orta PA-C 5200 [place] [address] Assigned Cancer Care Provider 05/13/21 11/01/22 Ang Slade MD [address] 084105 Urology 12/18/22 Lakshmi Wilhelm PA-C [address] [place] [address] 593595 Physician Engineering Department Chair Urology 02/03/23 [place] [address] [place] [address] Assigned PCP 02/06/23 Alissa Perez PA-C [address] [place] [address] Physician Engineering Department Chair Surgery 09/04/23 Lakshmi Wilhelm PA-C 9 [place] [address] Physician Engineering Department Chair Urology 09/16/23 Aidee Valero PA-C [address] [place] [address] Assigned Musculoskeletal Provider 04/17/24 Tanisha Marlow 4120 [facility] [id number] 03/30/24 documented as of this encounter
--- OUTSIDE RECORDS SUMMARY | 2024-07-18 21:57 | XMS_ITS | Encounter Summary ---
Author Organization [facility] Address [address] [place] [address] Care Team Providers Care Laborer Hoisting Name Role Phone Carlos Joyner MD Unavailable [phone] Jadon Murray MD Unavailable + [phone] Maru Villagomez RN Unavailable Unavailable Ignacia Duran MD Primary Care Provider [phone] Ang Slade MD Unavailable [phone] Carlos Joyner MD Unavailable [phone] Ang Slade MD Unavailable +[phone] Lakshmi Wilhelm-C Unavailable +[phone] Heladio Willoughby MD Primary Care Provider Heladio Willoughby MD Unavailable Alissa Perez PA-C Unavailable [phone] Lakshmi Wilhelm-C Unavailable [phone] Aidee Valero PA-C Unavailable +[phone] Encounter Details Date Type Department Care Team (Late st Contact Info) Description 12/30/2022 [facility] [place] [facility] [address] 4th [place] [address] Analisa Palacio, OTILIO Social History [...] st Contact Info) Description 07/21/2024 4:00 PM BEAN DUMPER Office Visit [facility] [address] [place] [address] [place] [address] [place] [address] 09/07/2024 8:30 AM CDT Virtual Visit [facility] [address] [phone] Carlos Joyner MD [address] [place] [address] 18078455 09/20/2024 11:00 AM CDT Office Visit [facility] [address] [phone] Sugey Mccoy, MAINTENANCE TRUCK DRIVER [address] 135074 documented as of this encounter Visit Diagnoses Not on filedocumented in this encounter Additional Health Concerns Infection Onset Date Last Indicated Resolved Time MRSA Comment:Added from external infection. Pt has had Staph infections but never MRSA from Care everywhere chart review. Removing MRSA 9.14.23 06/17/2019 02/06/2023 9:41 AM C DT documented as of this encounter Care Teams Laborer Hoisting Relationship Specialty Start Date End Date Ignacia Duran MD PCP - General Pediatrics 01/20/20 03/04/23 [place] [address] [place] [address] PCP - General 03/05/23 Carlos Joyner MD [address] [place] [address] Urology 12/09/19 Jadon Murray MD [facility] [address] [address] Referring Physician Pediatric Surgery 12/09/19 Maru Villagomez, OTILIO Registered Nurse 12/10/19 Ang Slade MD [address] [place] [address] Urology 04/24/20 Carlos Joyner MD [address] [place] [address] Assigned Surgical Provider 12/24/20 Ang Slade MD [address] [place] [address] Urology 12/18/22 Lakshmi Wilhelm PA-C [address] [place] [address] 940495 Physician Mold Tooler Urology 02/03/23 [place] [address] [place] [address] Assigned PCP 02/06/23 Alissa Perez PA-C [address] [place] [address] 388375 Physician Mold Tooler Surgery 09/04/23 Lakshmi Wilhelm PA-C [address] [place] [address] 864135 Physician Mold Tooler Urology 09/16/23 Aidee Valero PA-C [address] [place] [address] 891535 Assigned Musculoskeletal Provider 04/17/24 Tanisha Marlow 4120 [facility] [address] 03/30/24 documented as of this encounter
--- OUTSIDE RECORDS SUMMARY | 2024-07-18 21:57 | XMS_ITS | Encounter Summary ---
Author Organization [facility] Address [address] [place] [address] Care Team Providers Care Sap Project Manager Name Role Phone Carlos Joyner MD Unavailable [phone] Jadon Murray MD Unavailable [phone] Maru Villagomez RN Unavailable Unavailable Ignacia Duran MD Primary Care Provider [phone] Ang Slade MD Unavailable +[phone] Carlos Joyner MD Unavailable +[phone] Annalise Orta PA-C Unavailable +[phone] Ang Slade MD Unavailable +[phone] Lakshmi Wilhelm PA-C Unavailable [phone] Heladio Willoughby MD Primary Care Provider [phone] Heladio Willoughby MD Unavailable Alissa Perez PA-C Unavailable [phone] Lakshmi Wilhelm PA-C Unavailable [phone] Aidee Valero PA-C Unavailable +[phone] Encounter Details Date Type Department Care Team (Late st Contact Info) Description 07/31/2021 [facility] [address] 5th [place] [address] Makenzie Drummond, RN Social History [...] st Contact Info) Description 07/21/2024 4:00 PM SPRAY GUN SIZER Office Visit [facility] [address] [place] [phone] [place] [address] [place], [place] 5654668 09/07/2024 8:30 AM CDT Virtual Visit [facility] [address] 4th [place] [phone] Carlos Joyner MD [address] [place] [address] 328695 09/20/2024 11:00 AM CDT Office Visit [facility] [address] [phone] Sugey Mccoy, INTEGRITY DIRECTOR [address] 423924 documented as of this encounter Visit Diagnoses Not on filedocumented in this encounter Additional Health Concerns Infection Onset Date Last Indicated Resolved Time MRSA Comment:Added from external infection. Pt has had Staph infections but never MRSA from Care everywhere chart review. Removing MRSA 02.06.23 06/17/2019 02/06/2023 9:41 AM C DT documented as of this encounter Care Teams Sap Project Manager Relationship Specialty Start Date End Date Ignacia Duran MD PCP - General Pediatrics 01/20/20 03/04/23 [place] [address] [place] [address] PCP - General 03/05/23 Carlos Joyner MD [address] [place] [address] Urology 12/09/19 Jadon Murray MD [facility] [address] [address] Referring Physician Pediatric Surgery 12/09/19 Maru Villagomez, RN Registered Nurse 12/10/19 Ang Slade MD [address] [place] [address] 211845 Urology 04/24/20 Carlos Joyner MD [address] [place] [address] 177835 Assigned Surgical Provider 12/24/20 Annalise Orta PA-C 5200 [place] [address] Assigned Cancer Care Provider 05/13/21 11/01/22 Ang Slade MD [address] 139395 Urology 12/18/22 Lakshmi Wilhelm PA-C [address] [place] [address] Physician Environmental Services Technician Urology 02/03/23 [place] [address] [place] [address] Assigned PCP 02/06/23 Alissa Perez PA-C [address] [place] [address] Physician Environmental Services Technician Surgery 09/04/23 Lakshmi Wilhelm PA-C [address] [place] [address] Physician Environmental Services Technician Urology 09/16/23 Aidee Valero PA-C [address] [place] [address] Assigned Musculoskeletal Provider 04/17/24 Tanisha Marlow 4120 [facility] [address] 03/30/24 documented as of this encounter
--- OUTSIDE RECORDS SUMMARY | 2024-07-18 21:57 | XMS_ITS | Encounter Summary ---
Author Organization [facility] Address [address] [place] [address] Care Team Providers Care Aging Room Operator Name Role Phone Carlos Joyner MD Unavailable +[phone] Jadon Murray MD Unavailable [phone] Maru Villagomez RN Unavailable Unavailable Ignacia Duran MD Primary Care Provider [phone] Carlos Joyner MD Unavailable +[phone] Agn Slade MD Unavailable [phone] Ang Slade MD Unavailable +[phone] Carlos Joyner MD Unavailable +[phone] Annalise Orta PA-C Unavailable +[phone] Ang Slade MD Unavailable [phone] Lakshmi Wilhelm-C Unavailable [phone] Heladio Willoughby MD Primary Care Provider [phone] Heladio Willoughby MD Unavailable Alissa Perez PA-C Unavailable [phone] Lakshmi Wilhelm-C Unavailable +[phone] Aidee Valero PA-C Unavailable +[phone] Reason for Visit * Reason Onset Date Comments Call Back 08/01/2020 Miscommunication between urinary results Encounter Details Date Type Department Care Team (Late st Contact Info) Description 08/01/2020 Telephone [facility] [address] [place] [phone] Ang Slade MD 420 [facility] 394 [place] [address] Call Back (Miscommunication between urinary results) Social [...] COVID-19? No / Unsure 08/02/2020 8:37 AM FORM BUILDING SUPERVISOR documented as of this encounter Miscellaneous Notes * Telephone Encounter - Diego Sams - 08/01/2020 11:21 AM CST [facility] Phone Message May a detailed message be left on voicemail: yes Reason for Call: Other: Cristine with [facility] calling because pt's primary, , would like to speak with or a nurse regarding pt's urinary results. Reports that there is some miscommunication that she wants to clarify. Please call back. Action Taken: Message routed to: [facility] uro Travel Screening: Not Applicable BUILDING SUPERVISOR documented in this encounter Plan of Treatment Upcoming Encounters Date Type Department Care Team (Late st Contact Info) Description 07/21/2024 4:00 PM FORM BUILDING SUPERVISOR Office Visit [facility] [address] [place] [address] [place] [address] [place] [address] 09/07/2024 8:30 AM CDT Virtual Visit [facility] [place] 909 [facility] 4th [place] [phone] Carlos Joyner MD [address] [place] [address] 682055 09/20/2024 11:00 AM CDT Office Visit [facility] [address] [place] [address] Sugey Mccoy, UROLOGIST [facility] [address] [place] [address] [address] [place], [place] 843744 documented as of this encounter Visit Diagnoses Not on filedocumented in this encounter Additional Health Concerns Infection Onset Date Last Indicated Resolved Time MRSA Comment:Added from external infection. Pt has had Staph infections but never MRSA from Care everywhere chart review. Removing MRSA 02.06.23 06/17/2019 02/06/2023 9:41 AM C DT documented as of this encounter Care Teams Aging Room Operator Relationship Specialty Start Date End Date Ignacia Duran MD PCP - General Pediatrics 01/20/20 03/04/23 [place] [address] [place] [address] PCP - General 03/05/23 Carlos Joyner MD [address] [place] [address] Urology 12/09/19 Jadon Murray MD [facility] 2530 [facility] 550 [place] [address] Referring Physician Pediatric Surgery 12/09/19 Maru Villagomez, OTILIO Registered Nurse 12/10/19 Carlos Joyner MD 909 [place] [address] Assigned Surgical Provider 03/17/20 Ang Slade MD 420 [facility] 394 [place] [address] Urology 04/24/20 Ang Slade MD 420 [facility] 394 [place], [place] 813985 Assigned Surgical Provider 08/13/20 Carlos Joyner MD [address] [place] [address] 858485 Assigned Surgical Provider 12/24/20 Annalise Orta PA-C 5200 [place] [address] Assigned Cancer Care Provider 05/13/21 11/01/22 nAg Slade MD [address] 866235 Urology 12/18/22 Lakshmi Wilhelm PA-C [address] [place] [address] 108145 Physician Photonics Engineering Technician Urology 02/03/23 [place] [address] [place] [address] Assigned PCP 02/06/23 Ailssa Perez PA-C [address] [place] [address] Physician Photonics Engineering Technician Surgery 09/04/23 Lakshmi Wilhelm PA-C 9 [place] [address] Physician Photonics Engineering Technician Urology 09/16/23 Aidee Valero PA-C [address] [place] [address] Assigned Musculoskeletal Provider 04/17/24 Tanisha Marlow 4120 [facility] [address] 03/30/24 documented as of this encounter
--- OUTSIDE RECORDS SUMMARY | 2024-07-18 21:57 | XMS_ITS | Encounter Summary ---
Author Organization [place] Address [address] [place] [address] Care Team Providers Care Stockbroking Dealer Name Role Phone Carlos Joyner MD Unavailable [phone] Jadon Murray MD Unavailable [phone] Maru Villagomez RN Unavailable Unavailable Ignacia Duran MD Primary Care Provider [phone] Ang Slade MD Unavailable +[phone] Carlos Joyner MD Unavailable +[phone] Annalise Orta PA-C Unavailable [phone] Ang Slade MD Unavailable Lakshmi Wilhelm-C Unavailable [phone] Heladio Willoughby MD Primary Care Provider Heladio Willoughby MD Unavailable Alissa Perez PA-C Unavailable [phone] Lakshmi Wilhelm-C Unavailable Aidee Valero PA-C Unavailable [phone] Reason for Visit * Reason Onset Date Comments Call Back 06/27/2021 Bladder infectio n Encounter Details Date Type Department Care Team (Late st Contact Info) Description 06/27/2021 Telephone [facility] Urology Clinic [address] 4th [place] [address] Carlos Joyner MD [address] [place] [address] Call Back (Bladder infection) Social History [...] COVID-19? No / Unsure 06/19/2021 11:16 AM TELEPHONE ADVICE NURSE documented as of this encounter Miscellaneous Notes * Telephone Encounter - Karen Sheth - 06/27/2021 12:22 PM CST [facility] Call Center Phone Message May [...] Center ([facility]): uro Travel Screening: Not Applicable PHONE ADVICE NURSE documented in this encounter Plan of Treatment Upcoming Encounters Date Type Department Care Team (Late st Contact Info) Description 07/21/2024 4:00 PM TELEPHONE ADVICE NURSE Office Visit [facility] [address] [place] [address] [place] [address] [place], [place] 8287968 09/07/2024 8:30 AM CDT Virtual Visit [facility] Urology Clinic [address] 4th [place] [phone] Carlos Joyner MD [address] [place] [address] 764455 09/20/2024 11:00 AM CDT Office Visit [facility] [address] [facility] [place] [address] Sugey Mccoy, WORD PROCESSING MACHINE OPERATOR SPECIAL EDUCATION RESOURCE TEACHER [address] [place] [address] [address] [place], [place] 441754 documented as of this encounter Visit Diagnoses Not on filedocumented in this encounter Additional Health Concerns Infection Onset Date Last Indicated Resolved Time MRSA Comment:Added from external infection. Pt has had Staph infections but never MRSA from Care everywhere chart review. Removing MRSA 02.06.23 06/17/2019 02/06/2023 9:41 AM C DT documented as of this encounter Care Teams Stockbroking Dealer Relationship Specialty Start Date End Date Ignacia Duran MD PCP - General Pediatrics 01/20/20 03/04/23 [place] [address] [place] [address] PCP - General 03/05/23 Carlos Joyner MD 9 [place] [address] Urology 12/09/19 Jadon Murray MD [facility] 2530 [facility] 550 [place] [address] Referring Physician Pediatric Surgery 12/09/19 Maru Villagomez, OTILIO Registered Nurse 12/10/19 Ang Slade MD [address] [place] [address] 394 [place] [address] Urology 04/24/20 Carlos Joyner MD [address] [place] [address] Assigned Surgical Provider 12/24/20 Annalise Orta PA-C 5200 [place] [address] Assigned Cancer Care Provider 05/13/21 11/01/22 Ang Slade MD [address] [place] [address] Urology 12/18/22 Lakshmi Wilhelm PA-C [address] [place] [address] 16897 Physician Cleaning Crew Member Urology 02/03/23 [place] [address] [place] [address] Assigned PCP 02/06/23 Alissa Perez PA-C [address] [place] [address] Physician Cleaning Crew Member Surgery 09/04/23 Lakshmi Wilhelm PA-C [address] [place] [address] 20780 Physician Cleaning Crew Member Urology 09/16/23 Aidee Valero PA-C [address] [place] [address] 318545 Assigned Musculoskeletal Provider 04/17/24 Tanisha Marlow 4120 [facility] [address] 03/30/24 documented as of this encounter
--- OUTSIDE RECORDS SUMMARY | 2024-07-18 21:57 | XMS_ITS | Encounter Summary ---
Author Organization [facility] Address [address] [place] [address] Care Team Providers Care Automotive Center Manager Name Role Phone Carlos Joyner MD Unavailable [phone] Jadon Murray MD Unavailable [phone] Maru Villagomez RN Unavailable Unavailable Ang Slade MD Unavailable [phone] Carlos Joyner MD Unavailable +[phone] Ang Slade MD Unavailable [phone] Lakshmi Wilhelm PA-C Unavailable [phone] Helaido Willoughby MD Primary Care Provider [phone] Heladio Willoughby MD Unavailable Alissa Perez PA-C Unavailable [phone] Lakshmi Wilhelm PA-C Unavailable [phone] Aidee Valero PA-C Unavailable +[phone] Encounter Details Date Type Department Care Team (Late st Contact Info) Description 09/18/2023 [facility] [place] [facility] [address]th [place] [address] Carlos Joyner MD [address] [place] [address] Social History Tobacco Use Types Packs/Day [...] st Contact Info) Description 07/21/2024 4:00 PM AIR BRAKE OPERATOR Office Visit [facility] [address] [place] [address] [place] [address] [place] [address] 09/07/2024 8:30 AM CDT Virtual Visit [facility] [address] [place] [address] Carlos Joyner MD [address] [place] [address] 09/20/2024 11:00 AM CDT Office Visit [facility] [address], [place] [phone] Sugey Mccoy, FUSING FURNACE LOADER PHYSICAL INSTRUCTOR [address] [place], [place] [address] documented as of this encounter Visit Diagnoses Not on filedocumented in this encounter Care Teams Automotive Center Manager Relationship Specialty Start [place] [address] [place] [address] PCP - General 03/05/23 Carlos Joyner MD [address] [place] [address] 517585 Urology 12/09/19 Jadon Murray MD [facility] 2530 [facility] 550 [place], [place] 40[address] Referring Physician Pediatric Surgery 12/09/19 Maru Villagomez, RN Registered Nurse 12/10/19 Ang Slade MD [address] [place] [address] 394 [place] [address] Urology 04/24/20 Carlos Joyner MD [address] [place] [address] 505205 Assigned Surgical Provider 12/24/20 Ang Slade MD [address] [place] [address] 394 [place] [address] Urology 12/18/22 Lakshmi Wilhelm PA-C [address] [place] [address] 954215 Physician Automatic Seamer Urology 02/03/23 [place] [address] [facility] [address] Assigned PCP 02/06/23 Alissa Perez PA-C [address] [place] [address] 271775 Physician Automatic Seamer Surgery 09/04/23 Lakshmi Wilhelm PA-C [address] [place] [address] 028955 Physician Automatic Seamer Urology 09/16/23 Aidee Valero PA-C [address] [place] [address] 676095 Assigned Musculoskeletal Provider 04/17/24 Tanisha Marlow 4120 [facility] [address] 03/30/24 documented as of this encounter
--- OUTSIDE RECORDS SUMMARY | 2024-07-18 21:58 | XMS_ITS | Encounter Summary ---
Author Organization [facility] Address [address] [place] [address] Care Team Providers Care Collection Clerk Name Role Phone Carlos Joyner MD Unavailable [phone] Jadon Murray MD Unavailable [phone] Maru Villagomez RN Unavailable Unavailable Ang Slade MD Unavailable [phone] Carlos Joyner MD Unavailable [phone] Ang Slade MD Unavailable [phone] Lakshmi Wilhelm PA-C Unavailable Heladio Willoughby MD Primary Care Provider Heladio Willoughby MD Unavailable Alissa Perez PA-C Unavailable [phone] Lakshmi Wilhelm PA-C Unavailable [phone] Aidee Valero PA-C Unavailable Reason for Visit * Reason Onset Date Comments Call Back 06/24/2024 Previous message from [employer] Encounter Details Date Type Department Care Team (Late st Contact Info) Description 06/24/2024 Telephone [facility] [address] [place] [address] Carlos Joyner MD [address] [place] [address] Call Back (Previous message from [employer]) Social History Tobacco Use Types Packs/Day Years [...] Telephone Encounter - Amari Mcconnell RN - 06/29/2024 9:12 AM CST Per Tanisha and patient's school nurse, who this RN spoke with, Laina typically only experiences incontinence and bladder spasms when she has an infection. RN sent antibiotics to [facility] pharmacy for pt. OTILIO Becker Assistant Food Service Manager- Urology [phone] TER CONTROL OPERATOR * Telephone Encounter - Amari Mcconnell RN - 06/28/2024 8:37 AM CST RN returned call to Tanisha, pt's guardian, with urine culture results. If symptomatic, rec Macrobid 100mg BID x [address] Joyner. RN requested return call to confirm plan. OTILIO Becker Assistant Food Service Manager- Urology [phone] TER CONTROL OPERATOR * Telephone Encounter - Kilo Perez - 06/24/2024 3:23 PM COUNTER CONTROL OPERATOR [facility] Phone Message May a detailed message be left on voicemail: yes Reason for Call: Alison from patients facility is requesting a response from yesterday's [employer] message RUPA: Mary Joyner & Team, [facility] sent the below message regarding her urine. Do you think she should have a urinalysis done in case of infection? Thank you greatly for advising. From: Christie Avila < > Sent: Sunday, June 23, 2024 10:06 AM To: Tanisha Marlow < [email or web address]>; Nurse < > Subject: MS Good Morning Tanisha, We've noticed some changes to Laina's urine output and today she was wet in her brief ( which inthe past was r/t a bladder spasm, and a UTI) so I wanted to provide you with our totals for the week so you can relay to her new homecare team, which she loves. (She has been coming in with her hair done and some cute color coordinated outfits) 06/21 - am -580cc's, darker yellow with some odor noted. 06/21 - pm - 280cc's - dark yellow with sediment noted 06/22 - am - 700cc's - darker yellow, odor and sediment 06/22 - pm - 220cc's - darker yellow urine 06/23 - am - 280cc's , and a large amount of urine in her brief. Sediment noted in catheter tubing as well. Laina has been bringing water from home, and we continue to encourage her to push fluids but in light of today's incontinence, it may be prudent to err on the side of caution and check a urine on her. She is afebrile. Please reach out if you have any other questions or concerns. Christie Avila RN, BSN, PHN, LSN Building Nurse [facility] Alison also reports the following updates for today: AM 220CC large amount of urine in brief. PM 380CC Yellow urine and sediment noted. Action Taken: Message routed to: [facility] Urology Travel Screening: Not Applicable Date of Service: TER CONTROL OPERATOR * Addendum Note - Amari Mcconnell RN - 06/24/2024 3:23 PM CSTAddended by: AMARI MCCONNELL on: 06/29/2024 09:13 AM Modules accepted: Orders TER CONTROL OPERATOR documented in this encounter Plan of Treatment Upcoming Encounters Date Type Department Care Team (Late st Contact Info) Description 07/21/2024 4:00 PM COUNTER CONTROL OPERATOR Office Visit [facility] [address] [place] [phone] [place] [address] [place], [place] [phone] 09/07/2024 8:30 AM CDT Virtual Visit [facility] [address] [place] [phone] Carlos Joyner MD [address] [place] [id number] 09/20/2024 11:00 AM CDT Office Visit [facility] [address] [address] Sugey Mccoy, BACK UP SCAN COORDINATOR COMMERCIAL UNDERWRITER [address] [place] [address] documented as of this encounter Visit Diagnoses Diagnosis Recurrent UTI- Primary Urinary tract infection, site not specified documented in this encounter Care Teams Collection Clerk Relationship Specialty [place] [address] [facility] [place] [address] PCP - General 03/05/23 Carlos Joyner MD [address] [place] [address] Urology 12/09/19 Jadon Murray MD [facility] [address] [facility] [address] [place] [address] Referring Physician Pediatric Surgery 12/09/19 Maru Villagomez, RN Registered Nurse 12/10/19 Ang Slade MD [address] [place] [address] Urology 04/24/20 Carlos Joyner MD [address] [place] [address] 079405 Assigned Surgical Provider 12/24/20 Ang Slade MD [address] [facility] [address] [place] [address] Urology 12/18/22 Lakshmi Wilhelm PA-C [address] [place] [address] Physician Bareback Rider Urology 02/03/23 [place] [address] [place] [address] Assigned PCP 02/06/23 Alissa Perez PA-C [address] [place] [address] Physician Bareback Rider Surgery 09/04/23 Lakshmi Wilhelm PA-C [address] [place] [address] Physician Bareback Rider Urology 09/16/23 Aidee Valero PA-C [address] [place] [address] Assigned Musculoskeletal Provider 04/17/24 Tanisha Marlow [address] [facility] [address] 03/30/24 documented as of this encounter
--- OUTSIDE RECORDS SUMMARY | 2024-07-18 21:58 | XMS_ITS | Encounter Summary ---
Author Organization [facility] Address [address] [place] [address] Care Team Providers Care Operational Assistant Name Role Phone Carlos Joyner MD Unavailable [phone] Jadon Murray MD Unavailable [phone] Maru Villagomez RN Unavailable Unavailable Ignacia Duran MD Primary Care Provider [phone] Ang Slade MD Unavailable [phone] Carlos Joyner MD Unavailable [phone] Annalise Orta PA-C Unavailable [phone] Ang Slade MD Unavailable [phone] Lakshmi Wilhelm-C Unavailable [phone] Heladio Willoughby MD Primary Care Provider [phone] Heladio Willoughby MD Unavailable Alissa Perez PA-C Unavailable [phone] Lakshmi Wilhelm PA-C Unavailable [phone] Aidee Valero PA-C Unavailable [phone] Encounter Details Date Type Department Care Team (Late st Contact Info) Description 11/14/2021 [facility] [address] [place] [address] Analisa Palacio, RN Social History [...] st Contact Info) Description 07/21/2024 4:00 PM NEW CLIENT BANKING SERVICES CLERK Office Visit [facility] [address] [place] [address] [place] [address] [place] [address] 09/07/2024 8:30 AM CDT Virtual Visit [facility] [address] [place] [phone] Carlos Joyner MD [address] [place] [id number] 09/20/2024 11:00 AM CDT Office Visit [facility] [address] [phone] Sugey Mccoy, COTTAGE ATTENDANT [address] 765484 documented as of this encounter Visit Diagnoses Not on filedocumented in this encounter Additional Health Concerns Infection Onset Date Last Indicated Resolved Time MRSA Comment:Added from external infection. Pt has had Staph infections but never MRSA from Care everywhere chart review. Removing MRSA 9.14.23 06/17/2019 02/06/2023 9:41 AM C DT documented as of this encounter Care Teams Operational Assistant Relationship Specialty Start Date End Date Ignacia Duran MD PCP - General Pediatrics 01/20/20 03/04/23 [place] [address] [facility] [place] [place] [address] PCP - General 03/05/23 Carlos Joyner MD [address] [place] [address] Urology 12/09/19 Jadon Murray MD [facility] [address] [address] Referring Physician Pediatric Surgery 12/09/19 Maru Villagomez, RN Registered Nurse 12/10/19 Ang Slade MD [address] [id number] Urology 04/24/20 Carlos Joyner MD [address] [place] [address] Assigned Surgical Provider 12/24/20 Annalise Orta PA-C [address] [place] [address] Assigned Cancer Care Provider 05/13/21 11/01/22 Ang Slade MD [address] [address] Urology 12/18/22 Lakshmi Wilhelm PA-C [address] [place] [address] Physician Pre Owned Sales Consultant Urology 02/03/23 [place] [address] [place] [address] Assigned PCP 02/06/23 Alissa Perez PA-C [address] [place] [address] Physician Pre Owned Sales Consultant Surgery 09/04/23 Lakshmi Wilhelm PA-C [address] [place] [address] Physician Pre Owned Sales Consultant Urology 09/16/23 Aidee Valero PA-C [address] [place] [address] Assigned Musculoskeletal Provider 04/17/24 Tanisha Marlow 4[address] [facility] [address] 03/30/24 documented as of this encounter
--- OUTSIDE RECORDS SUMMARY | 2024-07-18 21:58 | XMS_ITS | Encounter Summary ---
Author Organization [facility] Address [address] [place] [address] Care Team Providers Care Senior Network Engineer Name Role Phone Carlos Joyner MD Unavailable [phone] Jadon Murray MD Unavailable [phone] Maru Villagomez RN Unavailable Unavailable Ignacia Duran MD Primary Care Provider Ang Slade MD Unavailable [phone] Carlos Joyner MD Unavailable [phone] Annalise Orta PA-C Unavailable Ang Slade MD Unavailable Lakshmi Wilhelm-C Unavailable [phone] Heladio Willoughby MD Primary Care Provider Heladio Willoughby MD Unavailable Alissa Perez PA-C Unavailable [phone] Lakshmi Wilhelm PA-C Unavailable Aidee Valero PA-C Unavailable Encounter Details Date Type Department Care Team (Late st Contact Info) Description 10/01/2021 [facility] [address] [place] [address] Carlos Joyner MD [address] [place] [address] Social History Tobacco Use Types Packs/Day [...] st Contact Info) Description 07/21/2024 4:00 PM SECTION LEADER Office Visit [facility] [address] [place] [address] [place] [address] [place], [place] [phone] 09/07/2024 8:30 AM CDT Virtual Visit [facility] [address] [phone] Carlos Joyner MD [address] [place] [address] 815805 09/20/2024 11:00 AM CDT Office Visit [facility] [address] [phone] Sugey Mccoy, JAVA TECHNICAL ARCHITECT [address] [address]85454 documented as of this encounter Visit Diagnoses Not on filedocumented in this encounter Additional Health Concerns Infection Onset Date Last Indicated Resolved Time MRSA Comment:Added from external infection. Pt has had Staph infections but never MRSA from Care everywhere chart review. Removing MRSA 02.06.23 06/17/2019 02/06/2023 9:41 AM C DT documented as of this encounter Care Teams Senior Network Engineer Relationship Specialty Start Date End Date Ignacia Duran MD PCP - General Pediatrics 01/20/20 03/04/23 [place] [address] [facility] [place] [address] PCP - General 03/05/23 Carlos Joyner MD [address] [place] [address] Urology 12/09/19 Jadon Murray MD [facility] [address] [address] Referring Physician Pediatric Surgery 12/09/19 Maru Villagomez, OTILIO Registered Nurse 12/10/19 Ang Slade MD [address] [place] [address] Urology 04/24/20 Carlos Joyner MD [address] [place] [address] Assigned Surgical Provider 12/24/20 Annalise Orta PA-C [address] [place] [address] Assigned Cancer Care Provider 05/13/21 11/01/22 Ang Slade MD [address] [place] [address] Urology 12/18/22 Lakshmi Wilhelm PA-C [address] [place] [address] Physician Filenet Developer Urology 02/03/23 [place] [address] [place] [address] Assigned PCP 02/06/23 Alissa Perez PA-C [address] [place] [address] [id number] Physician Filenet Developer Surgery 09/04/23 Lakshmi Wilhelm PA-C [address] [place] [address] Physician Filenet Developer Urology 09/16/23 Aidee Valero PA-C [address] [place] [address] [id number] Assigned Musculoskeletal Provider 04/17/24 Tanisha Marlow [address] [facility] [id number] 03/30/24 documented as of this encounter
--- OUTSIDE RECORDS SUMMARY | 2024-07-18 21:58 | XMS_ITS | Clinical Summary ---
Author Organization [facility] Address [address] [place] [address] Care Team Providers Care Transportation Aid Name Role Phone Carlos Joyner MD Unavailable [phone] Jadon Murray MD Unavailable [phone] Maru Villagomez RN Unavailable Unavailable Ang Slade MD Unavailable [phone] Carlos Joyner MD Unavailable [phone] Ang Slade MD Unavailable Lakshmi Wilhelm-C Unavailable [phone] Heladio Willoughby MD Primary Care Provider [phone] Heladio Willoughby MD Unavailable Alissa Perez PA-C Unavailable [phone] Lakshmi Wilhelm-C Unavailable Aidee Valero PA-C [...] BANDAGE 4) MISC Apply 1 each topically 06/17/2 019 Active Multiple Vitamin (MULTI-VITAMINS) TABS Take 1 tablet by mouth every evening Active sodium chloride 0.9%, bottle, 0.9 % irrigation Irrigate with 60 mLs as directed 2 times daily Instill 60 ml into bladder along with Gentamicin solution Active MONOJECT HYPODERMIC NEEDLE 18G X 1 MISC USE TO FLUSH BLADDER Active B-D SYRINGE LUER-OLGA 30 ML MISC USE TO FLUSH BLADDER Active NEW MEDIndications:Re current UTI 480 MG Gentamicin in 1 Liter 0.9 Normal Saline. Instill 60 mL of Gentamicin solution into bladder at HS 1800 mL 11 Active Saline Bacteriostatic (SODIUM CHLORIDE BACTERIOSTATIC) 0.9 % SOLN flushIndications: Recurrent UTI Irrigate with 30 mLs as directed At Bedtime for 31 doses 930 mL 11 Active NEW MEDIndications:DU PICATE 480mg Gentamicin in one liter of Normal Saline. Instill 30 ml of gentamicin solution into bladder at bedtime 930 mL 11 Active acetaminophen (TYLENOL) 325 MG tablet Take 325-650 mg by mouth every 6 hours as needed for mild pain Active bisacodyl (DULCOLAX) 5 MG EC tablet 0 Refill(s), Maintenance Active polyethylene glycol (MIRALAX) 17 GM/Dose powder See Instructions, 1-3 tsp as needed to maintain soft stools, # 527 g, 1 Refill(s), Maintenance, other Active Wound Dressings ([facility]) PADSIndications:P ressure ulcer [facility] Externally apply 1 each topically daily 10 each 023 Active potassium chloride ER (K-TAB) 20 MEQ CR tabletIndications :Hypercalciuria Take 1 tablet (20 mEq) by mouth daily 90 tablet 3 024 Active gentamicin (GARAMYCIN) 40 MG/ML injection 40 mg 024 Active oxyBUTYnin (DITROPAN) 5 MG tabletIndications :Bladder spasms TAKE ONE TABLET BY MOUTH TWICE DAILY 180 tablet 2 024 Active potassium chloride marcie ER (KLOR-CON M10) 10 MEQ CR tabletIndications :Hypercalciuria TAKE ONE TABLET BY MOUTH TWICE DAILY 90 tablet 3 024 Active nitroFURantoin macrocrystal-mono hydrate (MACROBID) 100 MG capsuleIndication s:Recurrent UTI Take 1 capsule (100 mg) by mouth 2 times daily. 14 capsule 024 Active nitroFURantoin macrocrystal-mono hydrate (MACROBID) 100 MG capsuleIndication s:Recurrent UTI Take 1 capsule (100 mg) by mouth 2 times daily. 14 capsule 025 Active indapamide (LOZOL) 1.25 MG tabletIndications :Hypercalciuria TAKE ONE TABLET BY MOUTH EVERY DAY IN THE MORNING. 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 (03/14/2020): Vertebra Absence Congenital Kyphosis (acquired) (postural) 08/04/2008 Overview (03/14/2020): Kyphosis Neurogenic bladder 07/22/2003 Overview (03/05/2023): LW Onset: 45Ygh16 ; Paralysis Bladder Neurogenic bowel 07/22/2003 Overview (03/14/2020): LW Onset: 52Ldm67 Paraplegia 07/22/2003 Overview (04/18/2023): 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 07/22/2003 Overview (03/14/2020): LW Onset: 38Qub63 ; Short Stature 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/22/2003 Overview (04/16/2023): LW Modifier: shunted LW Onset: 14Dph28 ; Spina Bifida Lumbar w Hydrocephalus Resolved Problems Problem Noted Date Diagnosed Date Resolved Date Acute kidney failure, unspecified 02/10/2020 03/05/2023 Encounters Date Type Department Care Team Description 07/16/2024 Travel 07/09/2024 MyC Medical Advice [facility] [address] [phone] Hattie Wing RN 07/05/2024 Refill [facility] [address] [phone] Carlos Joyner MD Medication Refill 06/24/2024 Orders Only [facility] [address] [phone] Carlos Joyner MD Recurrent UTI (Primary Dx) 06/24/2024 Telephone [facility] [address] [phone] Carlos Joyner MD Call Back (Previous message from [employer]) 06/23/2024 MyC Medical Advice [facility] [address] [phone] Carlos Joyner MD 06/22/2024 Telephone [facility] [address] [place] [address] Heladio Willoughby MD Orders 06/15/2024 [facility] [address] [place] [phone] Sarika Calhoun MA 06/11/2024 Travel 04/28/2024 Travel 04/26/2024 Orders Only [facility] [address] [phone] Carlos Joyner MD Recurrent UTI (Primary Dx) 04/26/2024 MyC Medical Advice [facility] [address] [phone] Rosita Velasco RN 04/21/2024 11:45 AM WEATHERSEAL TECHNICIAN Lab [facility] [address] [place] [phone] Recurrent UTI 04/21/2024 Travel 04/21/2024 Orders Only [facility] [address] [phone] Carlos Joyner MD Recurrent UTI (Primary Dx) 04/21/2024 Telephone [facility] [address] [phone] Carlos Joyner MD Call Back (Pt still having UTI Symptoms. They are wanting to see about getting a new antibiotic. Please call Nurse corporate traffic manager at [phone]. Please call Yamini. As they would like to get something done prior to the holiday. Thanks ) 04/21/2024 Telephone [facility] [address] [place] [address] Heladio Willoughby MD from Last 3 Months Immunizations Name Administration Dates Next Due DTAP (<7y) 01/18/2008,05/06/2005 DTaP, Unspecified 01/16/2015 DTaP/HepB/IPV 05/27/2003,03/21/2003,2002 Flu, Unspecified 02/26/2016,02/21/2009, 4 S6p9-08 Novel Flu 03/18/2009 Q6g7-82 Novel Flu P-free 03/30/2004,05/27/2003 HEPATITIS A (PEDS [...] drink = 0.6 oz pur e alcohol) Social Connection and Isolat ion Panel [NHANES] Answer Date Recorded Frequency of Communication w ith Friends and Family Not on file 07/16/2024 How often do you get togethe r with friends or relatives? More than three times a week 07/16/2024 Attends [employer] Not on file 07/16 Active Member of Clubs or Organizations Not on f ile 07/16/2024 Attends Club or Organization Meetings Not on antelmo e 07/16/2024 Marital Status Not on file 07/16/2024 PHQ-2 Answer Date Recorded PHQ-2 Score 0 06/24/2023 [facility] - Occupational Stress Questionnaire Answer Date Recorded Do you feel stress - tense, restless, nervous, or anxious, or unable to sleep at night because your mind is troubled all the time - these days? Not at all 07/16/2024 Exercise Vital Sign Answer Date Recorde d On average, how many days pe r week do you engage in moderate to strenuous exercise (like a brisk walk)? 0 days 07/16/2024 On average, how many minutes do you engage in exercise at this level? 0 min 07/16/2024 Adolescent Education Answer Date Record ed Getting School Help Needed Not on file 02/15 Food Insecurity Answer Date Recorded Within the past 12 months, d id you worry that your food would run out before you got money to buy more? No 07/16/2024 Within the past 12 months, d id the food you bought just not last and you didn t have money to get more? No 07/16/2024 Housing Stability Answer Date Recorded Do you have housing? (Joey g is defined as stable permanent housing and does not include staying ouside in a car, in a tent, in an abandoned building, in an overnight group home, or couch-surfing.) No 07/16/2024 Are you worried about losing your housing? No 07/16/2024 Financial Resource Strain Answer Date R ecorded Within the past 12 months, h ave you or your family members you live with been unable to get utilities (heat, electricity) when it was really needed? No 07/16/2024 Transportation Needs Answer Date Record ed Within the past 12 months, h as lack of transportation kept you from medical appointments, getting your medicines, non-medical meetings or appointments, work, or from getting things that you need? No 07/16/2024 Comments No Sex and Gender Information Value [...] 61.2 kg (135 lb) 03/30/2024 2:01 PM WEATHERSEAL TECHNICIAN Height 147.3 cm (4' 10) 03/30/2024 2:01 PM WEATHERSEAL TECHNICIAN Body Mass Index 28.22 03/30/2024 2:01 PM WEATHERSEAL TECHNICIAN Plan of Treatment Upcoming Encounters Date Type Department Care Team (Late st Contact Info) Description 07/21/2024 4:00 PM WEATHERSEAL TECHNICIAN Office Visit [facility] [address] [place] [address] [phone] [place] [address] [place] [address] 09/07/2024 8:30 AM CDT Virtual Visit [facility] [address] [place] [address] Carlos Joyner MD [address] [place] [address] [phone] 09/20/2024 11:00 AM CDT Office Visit [facility] [address] [phone] Sugey Mccoy APRN [address] [address] Health Maintenance Due Date Last Done Comments [...] HIV SCREENING 04/16/2043 Postponed from 2017 (Other) ZOSTER IMMUNIZATION (1 of 2) 2052 HEPATITIS B IMMUNIZATION Completed 004, 03/21/2003, 2002 [...] Completed 04/14/2024, , 05/02/2022, Additional history exists Medical Devices Implanted Type Area Hide Inspector And Sorter Device Identifier Shelf Expiration Date Model / Serial / Lot Stent Ureteral Percuflex Plus [id number] - [id number] Implanted:Qty: 1 on 11/12/2021 by Carlos Joyner MD at [facility] Stent Right: Abdomen [employer] [id number] 12/26/2022 [id number] / [id number] Ureteral Catheter 5 Micronesian Implanted:Qty: 1 on 03/31/2023 by Elizabeth Jacobsen MD at [facility] Right: Ureter 02/02/2026 [id number] / / [id number] Description:5 montenegrin Uretera l catheter used as a stent in right ureter 5 Micronesian Open Ended Catheter Implanted:Qty: 1 on 03/31/2023 by Elizabeth Jacobsen MD at [facility] Left: Ureter 02/19/2026 [id number] / / [id number] Explanted Type Area Hide Inspector And Sorter Device Identifier Shelf Expiration Date Model / Serial / Lot Stent Ureteral Percuflex Plus [id number] - [id number] Implanted:Qty: 1 on 05/10/2021 by Carlos Joyner MD at [facility] Explanted:Qty: 1 on 08/09/2021 by Jane Gomez MD at [facility] Stent Right: Urethra [employer] 06/14/2022 [id number] / [id number] Description:Ureter Stent Ureteral Percuflex Plus [id number] - [id number] Implanted:Qty: 1 on 05/10/2021 by Carlos Joyner MD at [facility] Explanted:Qty: 1 on 08/09/2021 by Jane Gomez MD at [facility] Stent Left: Urethra [employer] 07/25/2022 [id number] 10 / [id number] Stent Ureteral Percuflex Plus [id number] - [id number] Implanted:Qty: 1 on 08/09/2021 by Jane Gomez MD at [facility] Explanted:Qty: 1 on 11/12/2021 at [facility] Stent Right: Ureter [employer] 02/29/2024 [id number] / / [id number] Stent Ureteral Percuflex Plus [id number] - [id number] Implanted:Qty: 1 on 08/09/2021 by aJne Gomez MD at [facility] Explanted:Qty: 1 on 11/12/2021 at [facility] Stent Right: Ureter [employer] 02/29/2024 [id number] / / [id number] 5 Fr X 22cm Ureteral Stent Explanted:Qty: 1 on 02/07/2020 by Carlos Joyner MD at [facility] 5 Fr X 22cm Ureteral Stent Explanted:Qty: 1 on 02/07/2020 by Carlos Joyner MD at [facility] COOK Procedures Procedure Name Priority Date/Time Associated Diagnosis Comments URINE CULTURE Routine 06/25/2024 9:14 AM WEATHERSEAL TECHNICIAN Recurrent UTI URINE MICROSCOPIC EXAM Routine 06/25/2024 9:14 AM WEATHERSEAL TECHNICIAN Recurrent UTI ROUTINE UA WITH MICROSCOPIC Routine 06/25/2024 9:14 AM WEATHERSEAL TECHNICIAN Recurrent UTI URINE CULTURE Routine 04/21/2024 10:30 AM WEATHERSEAL TECHNICIAN Recurrent UTI URINE MICROSCOPIC EXAM Routine 04/21/2024 10:30 AM WEATHERSEAL TECHNICIAN Recurrent UTI ROUTINE UA WITH MICROSCOPIC Routine 04/21/2024 10:30 AM WEATHERSEAL TECHNICIAN Recurrent UTI from Last 3 Months Results * (ABNORMAL) UA with Microscopic (06/25/2024 9:14 AM WEATHERSEAL TECHNICIAN) Only the most recent of2 resultswithin the time period is included. Color Urine Yellow Colorless, Straw, Light Yellow, Yellow 06/25/2024 9:19 AM WEATHERSEAL TECHNICIAN [facility] LABORATORY Appearance Urine Cloudy(A) Clear 06/25/19 9:19 AM WEATHERSEAL TECHNICIAN [facility] Glucose Urine Negative Negative mg/dL 06/25/2024 9:19 AM WEATHERSEAL TECHNICIAN [facility] Bilirubin Urine Negative Negative 9:19 AM WEATHERSEAL TECHNICIAN [facility] Ketones Urine Negative Negative mg/dL 06/25/2024 9:19 AM [facility] Specific [place] Urine 1.020 1.003 - 1.035 06/25/2024 9:19 AM [facility] Blood Urine Small(A) Negative 06/25/2024 9:19 AM [facility] pH Urine 6.0 5.0 - 7.0 06/25/2024 9:19 AM [facility] Protein Albumin Urine Negative Negative mg/dL 06/25/2024 9:19 AM [facility] Urobilinogen Urine 0.2 0.2, 1.0 E.U./dL 06/25/2024 9:19 AM [facility] Nitrite Urine Positive(A) Negative 06/25/2024 9:19 AM [facility] Leukocyte Esterase Urine Small(A) Negative 06/25/2024 9:19 AM [facility] Urine URINE SPECIMEN FROM URINARY CONDUIT / Unknown Non-blood Collection / Unknown 06/25/2024 9:14 AM WEATHERSEAL TECHNICIAN 06/25/2024 9:15 AM [facility] Carlos Joyner MD LAB - URINE ORDERABLES Fin al Result LABORATORY [facility] [place] [facility] [address] [facility] (no room number, 1st floor of clinic) [place] [address] * (ABNORMAL) Urine Microscopic Exam (06/25/2024 9:14 AM [facility]) Only the most recent of2 resultswithin the time period is included. Bacteria Urine Many(A) None Seen /HPF LINDA 06/25/2024 9:20 AM [facility] RBC Urine 2-5(A) 0-2 /HPF /HPF LINDA 06/25/2024 9:20 AM [facility] WBC Urine 10-25(A) 0-5 /HPF /HPF LINDA 06/25/2024 9:20 AM [facility] Amorphous Crystals Urine Few(A) None Seen /HPF LINDA 06/25/2024 9:20 AM [facility] Urine URINE SPECIMEN FROM URINARY CONDUIT / Unknown Non-blood Collection / Unknown 06/25/2024 9:14 AM WEATHERSEAL TECHNICIAN 06/25/2024 9:15 AM WEATHERSEAL TECHNICIAN us Carlos Joyner MD LAB - URINE ORDERABLES Fin al Result LABORATORY [facility] [place] [facility] [address] [facility] (no room number, 1st floor of clinic) [place] [address], [facility] * (ABNORMAL) Urine Culture (06/25/2024 9:14 AM WEATHERSEAL TECHNICIAN) Only the most recent of2 resultswithin the time period is included. Culture >100,000 CFU/mL Staphylococcus epidermidis(A) LINDA 06/28/2024 6:49 AM WEATHERSEAL TECHNICIAN [facility] Culture 50,000-100,000 CFU/mL Staphylococcus epidermidis(A) 06/28/2024 6:49 AM WEATHERSEAL TECHNICIAN [facility] Urine URINE SPECIMEN OBTAINED VIA INDWELLING URINARY CATHETER / Unknown Non-blood Collection / Unknown 06/25/2024 9:14 AM WEATHERSEAL TECHNICIAN 06/25/2024 9:15 AM WEATHERSEAL TECHNICIAN Narrative Organism Antibiotic Method Susceptibility Staphylococcus epidermidis [...] have no regulatory guidelines for susceptibility/resistance available. Carlos Joyner MD LAB - MICRO GENERAL ORDERA BLES Final Result [facility] Inf. Diseases Diag. Lab [address] [facility] [place] [address], [facility] from Last 3 Months Insurance [place]ICAID [place] [facility] INDIVIDUAL [facility] INDIVIDUAL [place]ICAID [place] [facility] INDIVIDUAL [facility] INDIVIDUAL [place] [facility] INDIVIDUAL Advance Directives For more information, please contact: [phone] Documents on File Type Date Recorded Patient Risk Compliance Manager Expl anation Advance Directives and Living Will [...] continue PREVIOUSLY ORDERED code status Care Teams Transportation Aid Relationship Specialty [place] [address] [facility] [place] [place] [address] PCP - General 03/05/23 Carlos Joyner MD [address] [place] [address] Urology 12/09/19 Jadon Murray MD [facility] [address] [facility] [address] [place] [address] Referring Physician Pediatric Surgery 12/09/19 Maru Villagomez, RN Registered Nurse 12/10/19 Ang Slade MD [address] [facility] [address] [place], [place] 117545 Urology 04/24/20 Carlos Joyner MD [address] [place] [address] [id number] Assigned Surgical Provider 12/24/20 Ang Slade MD [address] [facility] [address] [place], [place] 516895 Urology 12/18/22 Lakshmi Wilhelm PA-C [address] [place] [address] 857875 Physician Brass And Wind Instrument Repairer Urology 02/03/23 [place] [address] [place] [address] Assigned PCP 02/06/23 Alissa Perez PA-C [address] [place] [address] 405925 Physician Brass And Wind Instrument Repairer Surgery 09/04/23 Lakshmi Wilhelm PA-C [address] [place] [address] Physician Brass And Wind Instrument Repairer Urology 09/16/23 Aidee Valero PA-C [address] [place] [address] Assigned Musculoskeletal Provider 04/17/24 Tanisha Marlow [address] [facility] [address] 03/30/24
--- OUTSIDE RECORDS SUMMARY | 2024-07-18 21:58 | XMS_ITS | Encounter Summary ---
Author Organization [facility] Address [address] [place] [address] Care Team Providers Care Council On Aging Director Name Role Phone Carlos Joyner MD Unavailable [phone] Jadon Murray MD Unavailable [phone] Maru Villagomez RN Unavailable Unavailable Ignacia Duran MD Primary Care Provider Ang Slade MD Unavailable [phone] Carlos Joyner MD Unavailable [phone] Annalise Orta PA-C Unavailable Ang Slade MD Unavailable Lakshmi Wilhelm-C Unavailable Heladio Willoughby MD Primary Care Provider Heladio Willoughby MD Unavailable Alissa Perez PA-C Unavailable [phone] Lakshmi Wilhelm PA-C Unavailable [phone] Aidee Valero PA-C Unavailable Encounter Details Date Type Department Care Team (Late st Contact Info) Description 09/17/2021 [facility] [address] [place] [address] Carlos Joyner MD [address] [place] [address] Social History Tobacco Use Types Packs/Day [...] st Contact Info) Description 07/21/2024 4:00 PM AUTOMOTIVE QUALITY ENGINEER Office Visit [facility] [address] [place] [phone] [place] [address] [place] [address] 09/07/2024 8:30 AM CDT Virtual Visit [facility] [address] [phone] Carlos Jyoner MD [address] [place] [address] 420675 09/20/2024 11:00 AM CDT Office Visit [facility] [address] [address] Sugey Mccoy, NESTOR [address] [phone] documented as of this encounter Visit Diagnoses Not on filedocumented in this encounter Additional Health Concerns Infection Onset Date Last Indicated Resolved Time MRSA Comment:Added from external infection. Pt has had Staph infections but never MRSA from Care everywhere chart review. Removing MRSA 9.14.23 06/17/2019 02/06/2023 9:41 AM C DT documented as of this encounter Care Teams Council On Aging Director Relationship Specialty Start Date End Date Ignacia Duran MD PCP - General Pediatrics 01/20/20 03/04/23 [place] [address] [place] [address] PCP - General 03/05/23 Carlos Joyner MD [address] [place] [address] Urology 12/09/19 Jadon Murray MD [facility] [address] [address] Referring Physician Pediatric Surgery 12/09/19 Maru Villagomez, OTILIO Registered Nurse 12/10/19 Ang Slade MD [address] [place] [address] Urology 04/24/20 Carlos Joyner MD [address] [place] [address] Assigned Surgical Provider 12/24/20 Annalise Orta PA-C [address] [place] [address] Assigned Cancer Care Provider 05/13/21 11/01/22 Ang Slade MD [address] [place] [address] Urology 12/18/22 Lakshmi Wilhlem PA-C [address] [place] [address] Physician Branch Specialist Urology 02/03/23 [place] [address] [place] [address] Assigned PCP 02/06/23 Alissa Perez PA-C [address] [place] [address] Physician Branch Specialist Surgery 09/04/23 Lakshmi Wilhelm PA-C [address] [place] [address] Physician Branch Specialist Urology 09/16/23 Aidee Valero PA-C [address] [place] [address] Assigned Musculoskeletal Provider 04/17/24 Tanisha Marlow [address] [facility] [address] 03/30/24 documented as of this encounter
--- OUTSIDE RECORDS SUMMARY | 2024-07-18 21:58 | XMS_ITS | Encounter Summary ---
Author Organization [facility] Address [address] [place] [address] Care Team Providers Care Machine Helper Name Role Phone Carlos Joyner MD Unavailable [phone] Jadon Murray MD Unavailable [phone] Maru Villagomez RN Unavailable Unavailable Ang Slade MD Unavailable [phone] Carlos Joyner MD Unavailable [phone] Ang Slade MD Unavailable [phone] Lakshmi Wilhelm-C Unavailable [phone] Heladio Willoughby MD Primary Care Provider [phone] Heladio Willoughby MD Unavailable Alissa Perez PA-C Unavailable [phone] Lakshmi Wilhelm-C Unavailable Aidee Valero PA-C Unavailable [phone] Encounter Details Date Type Department Care Team (Late st Contact Info) Description 06/24/2024 [facility] Clinic [address] 4th [place] [address] Carlos Joyner MD [address] [place] [address] Recurrent UTI (Primary Dx) Social History [...] of this encounter Progress Notes * Hattie Wing RN - 06/24/2024 4:17 PM CST Call placed to patient's guardian, Alison. Patient has dark, cloudy, odorous urine. 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 UA/UC orders placed. Thank you, Hattie Wing RN, BSN Urology Triage Nurse TER WHITTLER documented in this encounter Plan of Treatment Upcoming Encounters Date Type Department Care Team (Late st Contact Info) Description 07/21/2024 4:00 PM PLASTER WHITTLER [facility] [address] [place] [address] [place] [address] [place], [place] [phone] 09/07/2024 8:30 AM CDT Virtual Visit [facility] Clinic [address] 4th [place] [phone] Carlos Joyner MD [address] [place] [address] [phone] 09/20/2024 11:00 AM CDT Office Visit [facility] [place] [address] [place] [address] Sugey Mccoy, [facility] [address] [place] [address] documented as of this encounter Results * (ABNORMAL) Urine Culture (06/25/2024 9:14 AM PLASTER WHITTLER) Pathologist [facility] Culture >100,000 CFU/mL Staphylococcus epidermidis(A) LINDA 06/28/2024 6:49 AM PLASTER WHITTLER [facility] Culture 50,000-100,000 CFU/mL Staphylococcus epidermidis(A) 06/28/2024 6:49 AM PLASTER WHITTLER [facility] Urine URINE SPECIMEN OBTAINED VIA INDWELLING URINARY CATHETER / Unknown Non-blood Collection / Unknown 06/25/2024 9:14 AM PLASTER WHITTLER 06/25/2024 9:15 AM PLASTER WHITTLER Narrative Organism Antibiotic Method Susceptibility Staphylococcus epidermidis [...] ORDERA BLES Final Result [facility] Inf. Diseases Diag. Lab [address] [facility], Room [address] [place] [id number] * (ABNORMAL) UA with Microscopic (06/25/2024 9:14 AM PLASTER WHITTLER) Color Urine Yellow Colorless, Straw, Light Yellow, Yellow 06/25/2024 9:19 AM PLASTER WHITTLER RM LABORATORY Appearance Urine Cloudy(A) Clear 06/25/19 9:19 AM PLASTER WHITTLER RM LABORATORY Glucose Urine Negative Negative mg/dL 06/25/2024 9:19 AM PLASTER WHITTLER RM LABORATORY Bilirubin Urine Negative Negative 9:19 AM PLASTER WHITTLER RM LABORATORY Ketones Urine Negative Negative mg/dL 06/25/2024 9:19 AM PLASTER WHITTLER RM LABORATORY Specific [place] Urine 1.020 1.003 - 1.035 06/25/2024 9:19 AM PLASTER WHITTLER LABORATORY Blood Urine Small(A) Negative 06/25/2024 9:19 AM [facility] pH Urine 6.0 5.0 - 7.0 06/25/2024 9:19 AM PLASTER WHITTLER LABORATORY Protein Albumin Urine Negative Negative mg/dL 06/25/2024 9:19 AM PLASTER WHITTLER LABORATORY Urobilinogen Urine 0.2 0.2, 1.0 E.U./dL 06/25/2024 9:19 AM [facility] Nitrite Urine Positive(A) Negative 06/25/2024 9:19 AM PLASTER WHITTLER LABORATORY Leukocyte Esterase Urine Small(A) Negative 06/25/2024 9:19 AM PLASTER WHITTLER LABORATORY Urine URINE SPECIMEN FROM URINARY CONDUIT / Unknown Non-blood Collection / Unknown 06/25/2024 9:14 AM PLASTER WHITTLER 06/25/2024 9:15 AM PLASTER WHITTLER Carlos Joyner MD LAB - URINE ORDERABLES Fin al Result LABORATORY [facility] [address] [facility] (no room number, 1st floor of clinic) [place] [address], [facility] documented in this encounter Visit Diagnoses Diagnosis Recurrent UTI- Primary Urinary tract infection, site not specified documented in this encounter Care Teams Machine Helper Relationship Specialty Start [place] [address] [place] [address] PCP - General 03/05/23 Carlos Joyner MD 909 [place], [place] 628485 Urology 12/09/19 Jadon Murray MD [facility] [address] [address] Referring Physician Pediatric Surgery 12/09/19 Maru Villagomez, RN Registered Nurse 12/10/19 Ang Slade MD 420 [facility] 394 [place], [place] 302195 Urology 04/24/20 Carlos Joyner MD [address] [place] [address] 003505 Assigned Surgical Provider 12/24/20 Ang Slade MD [address] [place] [address] 030965 Urology 12/18/22 Lakshmi Wilhelm PA-C [address] [place] [address] 323085 Physician Rail Filler Urology 02/03/23 [place] [address] [place] [address] Assigned PCP 02/06/23 Alissa Perez PA-C [address] [place] [address] 434085 Physician Rail Filler Surgery 09/04/23 Lakshmi Wilhelm PA-C [address] [place] [address] Physician Rail Filler Urology 09/16/23 Aidee Valero PA-C [address] [place] [address] 046975 Assigned Musculoskeletal Provider 04/17/24 Tanisha Marlow 4120 [facility] [address] 03/30/24 documented as of this encounter
--- OUTSIDE RECORDS SUMMARY | 2024-07-18 21:58 | XMS_ITS | Encounter Summary ---
Author Organization [place] Address [address] [place] [address] Care Team Providers Care Cellular Tower Climber Name Role Phone Carlos Joyner MD Unavailable [phone] Jadon Murray MD Unavailable [phone] Maru Villagomez RN Unavailable Unavailable Ignacia Duran MD Primary Care Provider [phone] Carlos Joyner MD Unavailable [phone] Ang Slade MD Unavailable [phone] Ang Slade MD Unavailable [phone] Carlos Joyner MD Unavailable [phone] Annalise Orta-C Unavailable [phone] Ang Slade MD Unavailable [phone] Lakshmi Wilhelm-C Unavailable [phone] Heladio Willoughby MD Primary Care Provider [phone] Heladio Willoughby MD Unavailable Alissa Perez PA-C Unavailable [phone] Lakshmi Wilhelm-C Unavailable [phone] Aidee Valero PA-C Unavailable [phone] Reason for Visit * Reason Comments Orders Encounter Details Date Type Department Care Team (Late st Contact Info) Description 02/02/2020 Orders Only [facility] Urology and [facility] [address] [phone] Maru Villagomez, RN Social History Tobacco Use [...] st Contact Info) Description 07/21/2024 4:00 PM HORSE RIDING COACH OR INSTRUCTOR Office Visit [facility] [address] [place] [phone] [place] [address] [place] [address] 09/07/2024 8:30 AM CDT Virtual Visit [facility] [address] [phone] Carlos Joyner MD [address] [place] [address] 524115 09/20/2024 11:00 AM CDT Office Visit [facility] [address] [phone] Sugey Mccoy APRN [address] [address] documented as of this encounter Visit Diagnoses Not on filedocumented in this encounter Additional Health Concerns Infection Onset Date Last Indicated Resolved Time MRSA Comment:Added from external infection. Pt has had Staph infections but never MRSA from Care everywhere chart review. Removing MRSA 9.14.06/17/2019 02/06/2023 9:41 AM C DT documented as of this encounter Care Teams Cellular Tower Climber Relationship Specialty Start Date End Date Ignacia Duran MD PCP - General Pediatrics 01/20/20 03/04/23 [place] [address] [place] [address] PCP - General 03/05/23 Carlos Joyner MD [address] [place] [address] 211635 Urology 12/09/19 Jadon Murray MD [facility] [address] [phone] Referring Physician Pediatric Surgery 12/09/19 Maru Villagomez, RN Registered Nurse 12/10/19 Carlos Joyner MD [address] [place] [address] 966125 Assigned Surgical Provider 03/17/20 Ang Slade MD [address] [place] [address] Urology 04/24/20 Ang Slade MD [address] [place] [address] 242365 Assigned Surgical Provider 08/13/20 Carlos Joyner MD [address] [place] [address] 853265 Assigned Surgical Provider 12/24/20 Annalise Orta PA-C 5200 [place] [address] Assigned Cancer Care Provider 05/13/21 11/01/22 Ang Slade MD [address] [place] [address] [phone] MD Urology 12/18/22 Lakshmi Wilhelm PA-C [address] [place] [address] 395175 Physician Field Support Representative Urology 02/03/23 [place] [address] [place] [address] Assigned PCP 02/06/23 Alissa Perez PA-C [address] [place] [address] 027965 Physician Field Support Representative Surgery 09/04/23 Lakshmi Wilhelm PA-C [address] [place] [address] 910325 Physician Field Support Representative Urology 09/16/23 Aidee Valero PA-C [address] [place] [address] 906345 Assigned Musculoskeletal Provider 04/17/24 Tanisha Marlow 4120 [facility] [address] 03/30/24 documented as of this encounter
--- OUTSIDE RECORDS SUMMARY | 2024-07-18 21:58 | XMS_ITS | Encounter Summary ---
Author Organization [facility] Address [address] [place] [address] Care Team Providers Care Channel Business Manager Name Role Phone Carlos Joyner MD Unavailable [phone] Jadon Murray MD Unavailable [phone] Maru Villagomez RN Unavailable Unavailable Ang Slade MD Unavailable [phone] Carlos Joyner MD Unavailable [phone] Ang Slade MD Unavailable [phone] Lakshmi WilhelmC Unavailable [phone] Heladio Willoughby MD Primary Care Provider [phone] Heladio Willoughby MD Unavailable Alissa Perez PA-C Unavailable [phone] Lakshmi WilhelmC Unavailable [phone] Aidee ValeroC Unavailable [phone] Encounter Details Date Type Department Care Team (Late st Contact Info) Description 03/30/2024 Telephone [facility] [address] 4th [place] [address] Aidee Valero PA-C [address] [place] [address] Social History Tobacco Use Types Packs/Day [...] Natalie Abdullahi - 03/30/2024 3:23 PM CST [facility] [place] [facility] Call Center Phone Message May a detailed message be left on voicemail: yes Reason for Call: Other: Anna is calling from Medical Records at [facility]. She is calling as she wants to know the time frame of records that are being requested? Action Taken: Other: te Travel Screening: Not Applicable Date of Service: N CAPITAL CONSULTANT documented in this encounter Plan of Treatment Upcoming Encounters Date Type Department Care Team (Late st Contact Info) Description 07/21/2024 4:00 PM HUMAN CAPITAL CONSULTANT Office Visit [facility] [address] [place] [phone] [place] [address] [place], [place] [phone] 09/07/2024 8:30 AM CDT Virtual Visit [facility] [place] 909 [facility] 4th [place] [phone] Carlos Joyner MD [address] [place] [address] 183015 09/20/2024 11:00 AM CDT Office Visit [facility] [place] [address] [place] [phone] Sugey Mccoy, [facility]F [facility] [address] [place], [place] [address]E [address] [facility] 106 [place] [address] documented as of this encounter Visit Diagnoses Not on filedocumented in this encounter Care Teams Channel Business Manager Relationship Specialty [place] [address] [place] [address] PCP - General 03/05/23 Carlos Joyner MD [address] [place] [address] 600305 Urology 12/09/19 Jadon Murray MD [facility] 2530 [facility] S [facility] [place] 550 [place] [address] Referring Physician Pediatric Surgery 12/09/19 Maru Villagomez, RN Registered Nurse 12/10/19 Ang Slade MD [address] [place] [address] 394 [place], [place] [phone] Urology 04/24/20 Carlos Joyner MD [address] [place] [address] 091005 Assigned Surgical Provider 12/24/20 Ang Slade MD [address] [place] [address] 432105 Urology 12/18/22 Lakshmi Wilhelm PA-C [address] [place] [address] [phone] Physician Production Material Handler Urology 02/03/23 [place] [address] [place] [address] Assigned PCP 02/06/23 Alissa Perez PA-C [address] [place] [address] 430725 Physician Production Material Handler Surgery 09/04/23 Lakshmi Wilhelm PA-C [address] [place] [address] 847255 Physician Production Material Handler Urology 09/16/23 Aidee Valero PA-C [address] [place] [address] 455125 Assigned Musculoskeletal Provider 04/17/24 Tanisha Marlow 4120 [facility] [address] 03/30/24 documented as of this encounter
--- OUTSIDE RECORDS SUMMARY | 2024-07-18 21:58 | XMS_ITS | Encounter Summary ---
Author Organization [place] Address [address] [place] [address]. [place] [address] Care Team Providers Care Integrity Analyst Name Role Phone Carlos Joyner MD Unavailable [phone] Jadon Murray MD Unavailable [phone] Maru Villagomez RN Unavailable Unavailable Ang Slade MD Unavailable [phone] Carlos Joyner MD Unavailable [phone] Ang Slade MD Unavailable [phone] Lakshmi Wilhelm PA-C Unavailable [phone] Heladio Willoughby MD Primary Care Provider [phone] Heladio Willoughby MD Unavailable Alissa Perez PA-C Unavailable [phone] Lakshmi Wilhelm-C Unavailable [phone] Aidee Valero PA-C Unavailable [phone] Encounter Details Date Type Department Care Team (Late st Contact Info) Description 07/09/2024 [facility] Medical Advice [facility] U[facility] Clinic [address]th [place] [address] Hattie Wing, RN Social History Tobacco Use Types Packs/Day [...] st Contact Info) Description 07/21/2024 4:00 PM HANDICAPPED TEACHER Office Visit [facility] [address] [place] [address] [place] [address] [place] [address] 09/07/2024 8:30 AM CDT Virtual Visit [facility] U[facility] Clinic [address] [address] Carlos Joyner MD [address] [place] [address] 018155 09/20/2024 11:00 AM CDT Office Visit [facility] [address] [place] [phone] Sugey Mccoy, FIXED ROUTE OPERATOR INFECTION PREVENTIONIST [address] [place] [address] [address] [place] [address] documented as of this encounter Visit Diagnoses Not on filedocumented in this encounter Care Teams Integrity Analyst Relationship Specialty [place] [address] [place] [address] PCP - General 03/05/23 Carlos Joyner MD [address] [place] [address] Urology 12/09/19 Jadon Murray MD [facility] 2530 [facility] [place] 550 [place] [address] Referring Physician Pediatric Surgery 12/09/19 Maru Villagomez, OTILIO Registered Nurse 12/10/19 Ang Slade MD [address] [address] Urology 04/24/20 Carlos Joyner MD [address] [place] [address] Assigned Surgical Provider 12/24/20 Ang Slade MD [address] [address] Urology 12/18/22 Lakshmi Wilhelm PA-C [address] [place] [address] 615355 Physician Railroad Car Loader Urology 02/03/23 [place] [address] [place] [address] Assigned PCP 02/06/23 Alissa Perez PA-C [address] [place] [address] 971445 Physician Railroad Car Loader Surgery 09/04/23 Lakshmi Wilhelm PA-C [address] [place] [address] 709185 Physician Railroad Car Loader Urology 09/16/23 Aidee Valero PA-C [address] [place] [address] 375445 Assigned Musculoskeletal Provider 04/17/24 Tanisha Marlow 4120 [facility] [address] 03/30/24 documented as of this encounter
--- OUTSIDE RECORDS SUMMARY | 2024-07-18 21:58 | XMS_ITS | Encounter Summary ---
Author Organization [facility] Address [address] [place] [address] Care Team Providers Care Automatic Profile Shaper Operator Name Role Phone Carlos Joyner MD Unavailable [phone] Jadon Murray MD Unavailable [phone] Maru Villagomez RN Unavailable Unavailable Ang Slade MD Unavailable [phone] Carlos Joyner MD Unavailable [phone] Ang Slade MD Unavailable [phone] Lakshmi WilhelmC Unavailable [phone] Heladio Willoughby MD Primary Care Provider [phone] Heladio Willoughby MD Unavailable Alissa Perez PA-C Unavailable [phone] Lakshmi WilhelmC Unavailable [phone] Aidee ValeroC Unavailable [phone] Encounter Details Date Type Department Care Team (Late st Contact Info) Description 04/01/2024 [facility] Medical [facility] [address] [place] [address] Aidee Valero PA-C [address] [place] [address] Social History Tobacco Use Types Packs/Day [...] st Contact Info) Description 07/21/2024 4:00 PM DUAL HOSE CEMENTER Office Visit [facility] [address] [place] [address] [place] [address] [place] [address] 09/07/2024 8:30 AM CDT Virtual Visit [facility] Urology [address] [place] [address] Carlos Joyner MD [address] [place] [address] 966295 09/20/2024 11:00 AM CDT Office Visit [facility] [address] [place] [phone] Sugey Mccoy, PLASTICS FABRICATION SUPERVISOR [facility] [address] [facility] [address] [place], [place] 226524 documented as of this encounter Visit Diagnoses Not on filedocumented in this encounter Care Teams Automatic Profile Shaper Operator Relationship Specialty [place] [address] [place], [place] [phone] PCP - General 03/05/23 Carlos Joyner MD [address] [place] [address] 980475 Urology 12/09/19 Jadon Murray MD [facility] 2530 [facility] [address] 550 [place], [place] [phone] Referring Physician Pediatric Surgery 12/09/19 Maru Villagomez, RN Registered Nurse 12/10/19 Ang Slade MD [address] [place] [address] 394 [place] [address] Urology 04/24/20 Carlos Joyner MD [address] [place] [address] 863855 Assigned Surgical Provider 12/24/20 Ang Slade MD [address] [place] [address] 394 [place] [address] Urology 12/18/22 Lakshmi Wilhelm PA-C [address] [place] [address] 793575 Physician Residence Director Urology 02/03/23 [place] [address] [facility] [place] [place] [address] Assigned PCP 02/06/23 Alissa Perez PA-C [address] [place] [address] 823495 Physician Residence Director Surgery 09/04/23 Lakshmi Wilhelm PA-C [address] [place] [address] 879995 Physician Residence Director Urology 09/16/23 Aidee Valero PA-C [address] [place] [address] 485315 Assigned Musculoskeletal Provider 04/17/24 Tanisha Marlow 4120 [facility] [address] 03/30/24 documented as of this encounter
--- OUTSIDE RECORDS SUMMARY | 2024-07-18 21:58 | XMS_ITS | Encounter Summary ---
Author Organization [place] Address [address] [place] [address] Care Team Providers Care Routing Clerk Name Role Phone Carlos Joyner MD Unavailable [phone] Jadon Murray MD Unavailable [phone] Maru Villagomez RN Unavailable Unavailable Ang Slade MD Unavailable [phone] Carlos Joyner MD Unavailable [phone] Ang Slade MD Unavailable [phone] Lakshmi Wilhelm-C Unavailable [phone] Heladio Willoughby MD Primary Care Provider [phone] Heladio Willoughby MD Unavailable Alissa Perez PA-C Unavailable [phone] Lakshmi Wilhelm-C Unavailable [phone] Aidee Valero PA-C Unavailable [phone] Reason for Visit * Reason Onset Date Comments Call Back 04/21/2024 Pt still having UTI Symptoms. They are wanting to see about getting a new antibiotic. Please call Nurse residential mortgage manager at [phone]. Please call Yamini. As they would like to get something done prior to the holiday. Thanks Encounter Details Date Type Department Care Team ([facility] st Contact Info) Description 04/21/2024 Telephone [facility] Urology Clinic [address] 4th [place] [address] Carlos Joyner MD [address] [place] [address] Call Back (Pt still having UTI Symptoms. They are wanting to see about getting a new antibiotic. Please call Nurse residential mortgage manager at [phone]. Please call Yamini. As they would like [...] getting a new antibiotic. Please call Nurse residential mortgage manager at [phone]. Please call Yamini. As they would like to get something done prior to the holiday. Thanks Action Taken: Other: uro Travel Screening: Not Applicable Date of Service: PAPER DELIVERER documented in this encounter Plan of Treatment Upcoming Encounters Date Type Department Care Team (Late st Contact Info) Description 07/21/2024 4:00 PM NEWSPAPER DELIVERER Office Visit [facility] [address] [place] [phone] [place] [address] [place], [place] [phone] 09/07/2024 8:30 AM CDT Virtual Visit [facility] Urology Clinic [address] 4th [place] [phone] Carlos Joyner MD [address] [place] [address] 01938455 09/20/2024 11:00 AM CDT Office Visit [facility] [address] [phone] Sugey Mccoy, HEATING SYSTEMS INSTALLER [address] [place], [place] 422224 documented as of this encounter Visit Diagnoses Not on filedocumented in this encounter Care Teams Routing Clerk Relationship Specialty Start [place] [address] [place], [place] [phone] PCP - General 03/05/23 Carlos Joyner MD [address] [place] [address] Urology 12/09/19 Jadon Murray MD [facility] 2530 [facility] 550 [place] [address] Referring Physician Pediatric Surgery 12/09/19 Maru Villagomez, RN Registered Nurse 12/10/19 Ang Slade MD [address] [place] [address] 394 [place], [place] 084675 Urology 04/24/20 Carlos Joyner MD [address] [place] [address] 442725 Assigned Surgical Provider 12/24/20 Ang Slade MD [address] [place] [address] 394 [place], [place] 603395 Urology 12/18/22 Lakshmi Wilhelm PA-C [address] [place] [address] 328335 Physician Production Controller Urology 02/03/23 [place] [address] [place] [address] Assigned PCP 02/06/23 Alissa Perez PA-C [address] [place] [address] 223385 Physician Production Controller Surgery 09/04/23 Lakshmi Wilhelm PA-C [address] [place] [address] 282595 Physician Production Controller Urology 09/16/23 Aidee Valero PA-C 9 [place] [address] Assigned Musculoskeletal Provider 04/17/24 Tanisha Marlow 4120 [facility] [address] 03/30/24 documented as of this encounter
--- OUTSIDE RECORDS SUMMARY | 2024-07-18 21:58 | XMS_ITS | Encounter Summary ---
Author Organization [facility] Address [address] [place] [address] Care Team Providers Care Package Reinspector Name Role Phone Carlos Joyner MD Unavailable [phone] Jadon Murray MD Unavailable +[phone] Maru Villagomez RN Unavailable Unavailable Ignacia Duran MD Primary Care Provider Ang Slade MD Unavailable [phone] Carlos Joyner MD Unavailable +[phone] Annalise Orta PA-C Unavailable +[phone] Ang Slade MD Unavailable +[phone] Lakshmi Wilhelm-C Unavailable [phone] Heladio Willoughby MD Primary Care Provider [phone] Heladio Willoughby MD Unavailable Alissa Perez PA-C Unavailable [phone] Lakshmi Wilhelm PA-C Unavailable [phone] Aidee Valero PA-C Unavailable +[phone] Encounter Details Date Type Department Care Team (Late st Contact Info) Description 10/02/2021 [facility] [address] [place] [address] Analisa Palacio, RN Social History [...] st Contact Info) Description 07/21/2024 4:00 PM SOLAR CONSULTANT Office Visit [facility] [address] [place] [phone] [place] [address] [place], [place] [phone] 09/07/2024 8:30 AM CDT Virtual Visit [facility] [address] [place] [phone] Carlos Joyner MD 909 [place], [place] 0[address]65 09/20/2024 11:00 AM CDT Office Visit [facility] [address] [phone] Sugey Mccoy, INVESTMENT BROKER [address] [place] [address] documented as of this encounter Visit Diagnoses Not on filedocumented in this encounter Additional Health Concerns Infection Onset Date Last Indicated Resolved Time MRSA Comment:Added from external infection. Pt has had Staph infections but never MRSA from Care everywhere chart review. Removing MRSA 9.14.23 06/17/2019 02/06/2023 9:41 AM C DT documented as of this encounter Care Teams Package Reinspector Relationship Specialty Start Date End Date Ignacia Duran MD PCP - General Pediatrics 01/20/20 03/04/23 [place] [address] [place] [address] PCP - General 03/05/23 Carlos Joyner MD [address] [place] [address] Urology 12/09/19 Jadon Murray MD [facility] [address] [address] Referring Physician Pediatric Surgery 12/09/19 Maru Villagomez, RN Registered Nurse 12/10/19 Ang Slade MD [address] [address] Urology 04/24/20 Carlos Joyner MD [address] [place] [address] Assigned Surgical Provider 12/24/20 Annalise Orta PA-C 5200 [place] [address] Assigned Cancer Care Provider 05/13/21 11/01/22 Ang Slade MD [address] [address] Urology 12/18/22 Lakshmi Wilhelm PA-C [address] [place] [address] Physician Straw Hat Plunger Operator Urology 02/03/23 [place] [address] [place] [address] Assigned PCP 02/06/23 Alissa Perez PA-C [address] [place] [address] Physician Straw Hat Plunger Operator Surgery 09/04/23 Lakshmi Wilhelm PA-C [address] [place] [address] Physician Straw Hat Plunger Operator Urology 09/16/23 Aidee Valero PA-C [address] [place] [address] 661815 Assigned Musculoskeletal Provider 04/17/24 Tanisha Marlow 4120 [facility] [address] 03/30/24 documented as of this encounter
--- OUTSIDE RECORDS SUMMARY | 2024-07-18 21:58 | XMS_ITS | Encounter Summary ---
Author Organization [facility] Address [address] [place] [address] Care Team Providers Care Wood Sawyer Name Role Phone Carlos Joyner MD Unavailable [phone] Jadon Murray MD Unavailable [phone] Maru Villagomez RN Unavailable Unavailable Ignacia Duran MD Primary Care Provider [phone] Ang Slade MD Unavailable +[phone] Carlos Joyner MD Unavailable +[phone] Annalise Orta PA-C Unavailable +[phone] Ang Slade MD Unavailable [phone] Lakshmi Wilhelm-C Unavailable [phone] Heladio Willoughby MD Primary Care Provider [phone] Heladio Willoughby MD Unavailable Alissa Perez PA-C Unavailable [phone] Lakshmi Wilhelm PA-C Unavailable [phone] Aidee Valero PA-C Unavailable [phone] Encounter Details Date Type Department Care Team (Late st Contact Info) Description 12/05/2021 [facility] [address] [address] [facility] Social History Tobacco Use Types Packs/Day [...] st Contact Info) Description 07/21/2024 4:00 PM BUSINESS CONTINUITY DIRECTOR Office Visit [facility] [address] [place] [address] [place] [address] [place] [address] 09/07/2024 8:30 AM CDT Virtual Visit [facility] [address] [place] [phone] Carlos Joyner MD [address] [place] [address] [phone] 09/20/2024 11:00 AM CDT Office Visit [facility] [address] [phone] Sugey Mccoy, NESTOR [address] [id number] documented as of this encounter Visit Diagnoses Not on filedocumented in this encounter Additional Health Concerns Infection Onset Date Last Indicated Resolved Time MRSA Comment:Added from external infection. Pt has had Staph infections but never MRSA from Care everywhere chart review. Removing MRSA 9.14.23 06/17/2019 02/06/2023 9:41 AM C DT documented as of this encounter Care Teams Wood Sawyer Relationship Specialty Start Date End Date Ignacia Duran MD PCP - General Pediatrics 01/20/20 03/04/23 [place] [address] [place] [address] PCP - General 03/05/23 Cralos Joyner MD [address] [place] [address] Urology 12/09/19 Jadon Murray MD [facility] [address] [address] Referring Physician Pediatric Surgery 12/09/19 Maru Villagomez, OTILIO Registered Nurse 12/10/19 Ang Slade MD [address] [place] [address] 675085 Urology 04/24/20 Carlos Joyner MD [address] [place] [address] Assigned Surgical Provider 12/24/20 Annalise Orta PA-C 5200 [place] [address] Assigned Cancer Care Provider 05/13/21 11/01/22 Ang Slade MD [address] [address] Urology 12/18/22 Lakshmi Wilhelm PA-C 909 [place] [address] Physician Camera Repairer Urology 02/03/23 [place] [address] [place] [address] Assigned PCP 02/06/23 Alissa Perez PA-C [address] [place] [address] Physician Camera Repairer Surgery 09/04/23 Lakshmi Wilhelm PA-C [address] [place] [address] Physician Camera Repairer Urology 09/16/23 Aidee Valero PA-C [address] [place] [address] Assigned Musculoskeletal Provider 04/17/24 Tanisha Marlow 4120 [facility] [address] 03/30/24 documented as of this encounter
--- OUTSIDE RECORDS SUMMARY | 2024-07-18 21:58 | XMS_ITS | Encounter Summary ---
Author Organization [facility] Address [address] [place] [address] Care Team Providers Care Cow Buyer Name Role Phone Carlos Joyner MD Unavailable [phone] Jadon Murray MD Unavailable [phone] Maru Villagomez RN Unavailable Unavailable Ang Slade MD Unavailable [phone] Carlos Joyner MD Unavailable [phone] Ang Slade MD Unavailable [phone] Lakshmi Wilhelm-C Unavailable [phone] Heladio Willoughby MD Primary Care Provider [phone] Heladio Willoughby MD Unavailable Alissa Perez PA-C Unavailable [phone] Lakshmi Wilhelm-C Unavailable [phone] Aidee Valero PA-C Unavailable [phone] Encounter Details Date Type Department Care Team (Latest Contact Info) Description 07/16/2024 Travel Social History Tobacco Use Types Packs/Day [...] than three times a week 07/16/2024 Attends Druze Services Not on file 02/21 /2025 Active Member of Clubs or Organizations Not on f ile 07/16/2024 Attends Club or Organization Meetings Not on antelmo e 07/16/2024 Marital Status Not on file 07/16/2024 PHQ-2 Answer Date Recorded PHQ-2 Score 0 06/24/2023 [facility] Occupat ional Health - Occupational Stress [...] building, in an overnight retirement, or couch-surfing.) No 07/16/2024 Are you worried [...] st Contact Info) Description 07/21/2024 4:00 PM FOLLOW UP MANAGER Office Visit [facility] [address] [place] [phone] [place] [address] [place], [place] [phone] 09/07/2024 8:30 AM CDT Virtual Visit [facility] [place] [address] [place] [address] 4th [place] [phone] Carlos Joyner MD [address] [place] [address] 587345 09/20/2024 11:00 AM CDT Office Visit [facility] [place] [address] [facility] [place] [phone] Sugey Mccoy, SURGICAL SPECIALIST [facility] [address] [place] [address] [address] [place], [place] 618784 documented as of this encounter Visit Diagnoses Not on filedocumented in this encounter Care Teams Cow Buyer Relationship Specialty Start [place] [address] [place] [address] PCP - General 03/05/23 Carlos Joyner MD [address] [place] [address] Urology 12/09/19 Jadno Murray MD [facility] 2530 [facility] [address] [place] [address] Referring Physician Pediatric Surgery 12/09/19 Maru Villagomez, OTILIO Registered Nurse 12/10/19 Ang Slade MD [address] [place] [address] 394 [place], [place] 0[address]235 Urology 04/24/20 Carlos Joyner MD [address] [place] [address] 992025 Assigned Surgical Provider 12/24/20 Ang Slade MD [address] [place] [address] Urology 12/18/22 Lakshmi Wilhelm PA-C [address] [place] [address] 136195 Physician Gerontology Aide Urology 02/03/23 [place] [address] [place] [address] Assigned PCP 02/06/23 Alissa Perez PA-C [address] [place] [address] Physician Gerontology Aide Surgery 09/04/23 Lakshmi Wilhelm PA-C [address] [place] [address] Physician Gerontology Aide Urology 09/16/23 Aidee Valero PA-C [address] [place] [address] 668635 Assigned Musculoskeletal Provider 04/17/24 Tanisha Marlow 4120 [facility] [address] 03/30/24 documented as of this encounter
--- OUTSIDE RECORDS SUMMARY | 2024-07-18 21:58 | XMS_ITS | Encounter Summary ---
Author Organization [facility] Address [address] [place] [address] Care Team Providers Care Therapeutic Sales Specialist Name Role Phone Carlos Joyner MD Unavailable [phone] Jadon Murray MD Unavailable [phone] Maru Villagomez RN Unavailable Unavailable Ignacia Duran MD Primary Care Provider Ang Slade MD Unavailable [phone] Carlos Joyner MD Unavailable [phone] Annalise Orta PA-C Unavailable [phone] Ang Slade MD Unavailable Lakshmi Wilhelm-C Unavailable [phone] Heladio Willoughby MD Primary Care Provider Heladio Willoughby MD Unavailable Alissa Perez PA-C Unavailable [phone] Lakshmi Wilhelm PA-C Unavailable [phone] Aidee Valero PA-C Unavailable [phone] Reason for Visit * Reason Onset Date Comments Orders 01/01/2022 Syringes - 35 an d 60 ml requested Encounter Details Date Type Department Care Team (Late st Contact Info) Description 01/01/2022 Telephone [facility] Urology Clinic [address] 4th [place] [address] Carlos Joyner MD [address] [place] [address] Orders (Syringes - 35 and 60 ml [...] order to [facility] at [phone]. Thank you. Action Taken: Other: Urology Travel Screening: Not Applicable documented in this encounter Plan of Treatment Upcoming Encounters Date Type Department Care Team (Late st Contact Info) Description 07/21/2024 4:00 PM ANALYSIS DIRECTOR Office Visit [facility] [address] [place] [phone] [place] [address] [place], [place] 70768[address] 09/07/2024 8:30 AM CDT Virtual Visit [facility] [address] 4th [place] [phone] Carlos Joyner MD [address] [place] [address] 731805 09/20/2024 11:00 AM CDT Office Visit [facility] [address] [phone] Sugey Mccoy APRN [address] 824294 documented as of this encounter Visit Diagnoses Not on filedocumented in this encounter Additional Health Concerns Infection Onset Date Last Indicated Resolved Time MRSA Comment:Added from external infection. Pt has had Staph infections but never MRSA from Care everywhere chart review. Removing MRSA 02.06.23 06/17/2019 02/06/2023 9:41 AM C DT documented as of this encounter Care Teams Therapeutic Sales Specialist Relationship Specialty Start Date End Date Ignacia Duran MD PCP - General Pediatrics 01/20/20 03/04/23 [place] [address] [place] [address] PCP - General 03/05/23 Carlos Joyner MD [address] [place] [address] Urology 12/09/19 Jadon Murray MD [facility] 2530 [facility] [address] [address] Referring Physician Pediatric Surgery 12/09/19 Maru Villagomez, RN Registered Nurse 12/10/19 Ang Slade MD [address] [place] [address] Urology 04/24/20 Carlos Joyner MD [address] [place] [address] Assigned Surgical Provider 12/24/20 Annalise Orta PA-C 5200 [place] [address] Assigned Cancer Care Provider 05/13/21 11/01/22 Ang Slade MD [address] [place] [address] Urology 12/18/22 Lakshmi Wilhelm PA-C [address] [place] [address] Physician Hand Splitter Urology 02/03/23 [place] [address] [facility] [place] [address] Assigned PCP 02/06/23 Alissa Perez PA-C [address] [place] [address] Physician Hand Splitter Surgery 09/04/23 Lakshmi Wilhelm PA-C [address] [place] [address] 147715 Physician Hand Splitter Urology 09/16/23 Aidee Valero PA-C [address] [place] [address] 999115 Assigned Musculoskeletal Provider 04/17/24 Tanisha Marlow 4120 [facility] [address] 03/30/24 documented as of this encounter
--- OUTSIDE RECORDS SUMMARY | 2024-07-18 21:58 | XMS_ITS | Encounter Summary ---
Author Organization [facility] Address [address] [place] [address] Care Team Providers Care Journalism Intern Name Role Phone Carlos Joyner MD Unavailable [phone] Jadon Murray MD Unavailable [phone] Maru Villagomez RN Unavailable Unavailable Ignacia Duran MD Primary Care Provider [phone] Ang Slade MD Unavailable [phone] Carlos Joyner MD Unavailable [phone] Annalise Orta-C Unavailable Ang Slade MD Unavailable Lakshmi Wilhelm-C Unavailable [phone] Heladio Willoughby MD Primary Care Provider Heladio Willoughby MD Unavailable Alissa Perez PA-C Unavailable [phone] Lakshmi Wilhelm-C Unavailable [phone] Aidee Valero PA-C Unavailable [phone] Encounter Details Date Type Department Care Team (Late st Contact Info) Description 10/12/2021 [facility]any[facility] [address] 5th [place] [address] Tanisha Coe PA-C [address] [place] [address] Social History Tobacco Use Types Packs/Day [...] st Contact Info) Description 07/21/2024 4:00 PM BOX STORAGE WORKER Office Visit [facility] [address] [place] [address] [place] [address] [place], [place] 4725068 09/07/2024 8:30 AM CDT Virtual Visit [facility] Clinic [address] [phone] Carlos Joyner MD [address] [place] [address] 851275 09/20/2024 11:00 AM CDT Office Visit [facility] [address] [phone] Sugey Mccoy, VETERINARY ATTENDANT [address] [address] documented as of this encounter Visit Diagnoses Not on filedocumented in this encounter Additional Health Concerns Infection Onset Date Last Indicated Resolved Time MRSA Comment:Added from external infection. Pt has had Staph infections but never MRSA from Care everywhere chart review. Removing MRSA 02.06.23 06/17/2019 02/06/2023 9:41 AM C DT documented as of this encounter Care Teams Journalism Intern Relationship Specialty Start Date End Date Ignacia Duran MD PCP - General Pediatrics 01/20/20 03/04/23 [place] [address] [facility] [place] [address] PCP - General 03/05/23 Carlos Joyner MD [address] [place] [address] Urology 12/09/19 Jadon Murray MD [facility] [address] [address] Referring Physician Pediatric Surgery 12/09/19 Maru Villagomez, RN Registered Nurse 12/10/19 Ang Slade MD [address] [place] [place] [address] Urology 04/24/20 Carlos Joyner MD [address] [place] [address] Assigned Surgical Provider 12/24/20 Annalise Orta PA-C 5200 [place] [address] Assigned Cancer Care Provider 05/13/21 11/01/22 Ang Slade MD [address] [place] [place] [address] Urology 12/18/22 Lakshmi Wilhelm PA-C [address] [place] [address] Physician Clutch Rebuilder Urology 02/03/23 [place] [address] [place] [address] Assigned PCP 02/06/23 Alissa Perez PA-C [address] [place] [address] 659145 Physician Clutch Rebuilder Surgery 09/04/23 Lakshmi Wilhelm PA-C [address] [place] [address] 874155 Physician Clutch Rebuilder Urology 09/16/23 Aidee Valero PA-C [address] [place] [address] 521865 Assigned Musculoskeletal Provider 04/17/24 Tanisha Marolw 4120 [facility] [place] [address] 03/30/24 documented as of this encounter
--- OUTSIDE RECORDS SUMMARY | 2024-07-18 21:58 | XMS_ITS | Encounter Summary ---
Author Organization [facility] Address [address] [place] [address] Care Team Providers Care Local Telephone Operator Name Role Phone Carlos Joyner MD Unavailable [phone] Jadon Murray MD Unavailable [phone] Maru Villagomez RN Unavailable Unavailable Ignacia Duran MD Primary Care Provider [phone] Ang Slade MD Unavailable Carlos Joyner MD Unavailable +[phone] Annalise Orta PA-C Unavailable [phone] Ang Slade MD Unavailable [phone] Lakshmi Wilhelm-C Unavailable Heladio Willoughby MD Primary Care Provider Heladio Willoughby MD Unavailable Alissa Perez PA-C Unavailable [phone] Lakshmi Wilhelm PA-C Unavailable Aidee Valero PA-C Unavailable [phone] Encounter Details Date Type Department Care Team (Late st Contact Info) Description 12/18/2021 [facility] [address] [place] [address] Carlos Joyner MD [address] [place] [address] Social History Tobacco Use Types Packs/Day [...] Upcoming Encounters Date Type Department Care Team ([facility] st Contact Info) Description 07/21/2024 4:00 PM ENROBING MACHINE FEEDER Office Visit [facility] [address] [place] [phone] [place] [address] [place], [place] 7957568 09/07/2024 8:30 AM CDT Virtual Visit [facility] [address] [phone] Carlos Joyner MD [address] [place] [address] 747715 09/20/2024 11:00 AM CDT Office Visit [facility] [address] [phone] Sugey Mccoy, AUTO MOTOR MECHANIC [address] [address] documented as of this encounter Visit Diagnoses Not on filedocumented in this encounter Additional Health Concerns Infection Onset Date Last Indicated Resolved Time MRSA Comment:Added from external infection. Pt has had Staph infections but never MRSA from Care everywhere chart review. Removing MRSA 9.14.23 06/17/2019 02/06/2023 9:41 AM C DT documented as of this encounter Care Teams Local Telephone Operator Relationship Specialty Start Date End Date Ignacia Duran MD PCP - General Pediatrics 01/20/20 03/04/23 [place] [address] [place] [address] PCP - General 03/05/23 Carlos Joyner MD [address] [place] [address] 299335 Urology 12/09/19 Jadon Murray MD [facility] [address] [address] Referring Physician Pediatric Surgery 12/09/19 Maru Villagomez, RN Registered Nurse 12/10/19 Ang Slade MD [address] [place] [address] Urology 04/24/20 Carlos Joyner MD [address] [place] [address] Assigned Surgical Provider 12/24/20 Annalise Orta PA-C 5200 [place] [address] Assigned Cancer Care Provider 05/13/21 11/01/22 Ang Slade MD [address] [address] Urology 12/18/22 Lakshmi Wilhelm PA-C [address] [place] [address] 239175 Physician Tooth Polisher Urology 02/03/23 [place] [address] [facility] [address] Assigned PCP 02/06/23 Alissa Perez PA-C [address] [place] [address] Physician Tooth Polisher Surgery 09/04/23 Lakshmi Wilhelm PA-C [address] [place] [address] Physician Tooth Polisher Urology 09/16/23 Aidee Valero PA-C [address] [place] [address] 380165 Assigned Musculoskeletal Provider 04/17/24 Tanisha Marlow 4120 [facility] [address] 03/30/24 documented as of this encounter
--- OUTSIDE RECORDS SUMMARY | 2024-07-18 21:58 | XMS_ITS | Encounter Summary ---
Author Organization [facility] Address [address] [place] [address] Care Team Providers Care Broadcasting Equipment Mechanic Name Role Phone Carlos Joyner MD Unavailable [phone] Jadon Murray MD Unavailable [phone] Maru Villagomez RN Unavailable Unavailable Ignacia Duran MD Primary Care Provider [phone] Ang Slade MD Unavailable [phone] Carlos Joyner MD Unavailable [phone] Annalise Orta PA-C Unavailable [phone] Ang Slade MD Unavailable [phone] Lakshmi Wilhelm-C Unavailable [phone] Heladio Willoughby MD Primary Care Provider [phone] Heladio Willoughby MD Unavailable Alissa Perez PA-C Unavailable [phone] Lakshmi Wilhelm PA-C Unavailable [phone] Aidee Valero PA-C Unavailable [phone] Encounter Details Date Type Department Care Team (Late st Contact Info) Description 11/07/2021 [facility] [employer] [facility] [address] [place] [address] Analisa Palacio, RN Social History [...] st Contact Info) Description 07/21/2024 4:00 PM HOLE FILLER Office Visit [facility] [address] [place] [address] [place] [address] [place] [address] 09/07/2024 8:30 AM CDT Virtual Visit [facility] [address] [place] [phone] Carlos Joyner MD [address] [place] [address] 31655455 09/20/2024 11:00 AM CDT Office Visit [facility] [address] [phone] Sugey Mccoy, REWINDER OPERATOR HELPER [address] [address] documented as of this encounter Visit Diagnoses Not on filedocumented in this encounter Additional Health Concerns Infection Onset Date Last Indicated Resolved Time MRSA Comment:Added from external infection. Pt has had Staph infections but never MRSA from Care everywhere chart review. Removing MRSA 9.14.23 06/17/2019 02/06/2023 9:41 AM C DT documented as of this encounter Care Teams Broadcasting Equipment Mechanic Relationship Specialty Start Date End Date gInacia Duran MD PCP - General Pediatrics 01/20/20 03/04/23 [place] [address] [facility] [place] [place] [address] PCP - General 03/05/23 Carlos Joyner MD [address] [place] [address] Urology 12/09/19 Jadon Murray MD [facility] [address] [address] Referring Physician Pediatric Surgery 12/09/19 Maru Villagomez, RN Registered Nurse 12/10/19 Ang Slade MD [address] 834025 Urology 04/24/20 Carlos Joyner MD [address] [place] [address]67 Assigned Surgical Provider 12/24/20 Annalise Orta PA-C 5200 [place] [address] Assigned Cancer Care Provider 05/13/21 11/01/22 Ang Slade MD [address] [address] Urology 12/18/22 Lakshmi Wilhelm PA-C [address] [place] [address] Physician Angle Shear Operator Urology 02/03/23 [place] [address] [place] [address] Assigned PCP 02/06/23 Alissa Perez PA-C [address] [place] [address] Physician Angle Shear Operator Surgery 09/04/23 Lakshmi Wilhelm PA-C [address] [place] [address] Physician Angle Shear Operator Urology 09/16/23 Aidee Valero PA-C [address] [place] [address] Assigned Musculoskeletal Provider 04/17/24 Tanisha Marlow 4120 [facility] [address] 03/30/24 documented as of this encounter
--- OUTSIDE RECORDS SUMMARY | 2024-07-18 21:58 | XMS_ITS | Encounter Summary ---
Author Organization [facility] Address [address] [place] [address] Care Team Providers Care Channel Program Manager Name Role Phone Carlos Joyner MD Unavailable [phone] Jadon Murray MD Unavailable [phone] Maru Villagomez RN Unavailable Unavailable Ang Slade MD Unavailable [phone] Carlos Joyner MD Unavailable [phone] Ang Slade MD Unavailable [phone] Lakshmi Wilhelm PA-C Unavailable [phone] Heladio Willoughby MD Primary Care Provider [phone] Heladio Willoughby MD Unavailable Alissa Perez PA-C Unavailable [phone] Lakshmi Wilhelm-C Unavailable [phone] Aidee Valero PA-C Unavailable [phone] Encounter Details Date Type Department Care Team (Late st Contact Info) Description 06/15/2024 [facility] Medical Advice [facility] [address] [place] [address] Sarika Calhoun MA Social History Tobacco Use Types Packs/Day [...] st Contact Info) Description 07/21/2024 4:00 PM DEPUTY ADMINISTRATOR Office Visit [facility] [address] [place] [address] [place] [address] [place], [place] 1939268 09/07/2024 8:30 AM CDT Virtual Visit [facility] [address] [address] Carlos Joyner MD [address] [place] [address] 101195 09/20/2024 11:00 AM CDT Office Visit [facility] [address] [place] [phone] Sugey Mccoy, SHOWROOM EXECUTIVE DIRECTOR [facility] [address] [place], [place] [address] [address] [place], [place] [address] documented as of this encounter Visit Diagnoses Not on filedocumented in this encounter Care Teams Channel Program Manager Relationship Specialty Start [place] [address] [place] [address] PCP - General 03/05/23 Carlos Joyner MD [address] [place] [address] Urology 12/09/19 Jadon Murray MD [facility] 2530 [facility] [address] [place] [address] Referring Physician Pediatric Surgery 12/09/19 Maru Villagomez, OTILIO Registered Nurse 12/10/19 Ang Slade MD [address] [place] [address] Urology 04/24/20 Carlos Joyner MD [address] [place] [address] Assigned Surgical Provider 12/24/20 Ang Slade MD [address] [address] Urology 12/18/22 Lakshmi Wilhelm PA-C [address] [place] [address] 370945 Physician Lead Athlete Urology 02/03/23 [place] [address] [place] [address] Assigned PCP 02/06/23 Alissa Perez PA-C [address] [place] [address] 204045 Physician Lead Athlete Surgery 09/04/23 Lakshmi Wilhelm PA-C [address] [place] [address] 397265 Physician Lead Athlete Urology 09/16/23 Aidee Valero PA-C 909 [place], [place] 924445 Assigned Musculoskeletal Provider 04/17/24 Tanisha Marlow 4120 [facility] [address] 03/30/24 documented as of this encounter
--- OUTSIDE RECORDS SUMMARY | 2024-07-18 21:58 | XMS_ITS | Encounter Summary ---
Author Organization [facility] Address [address] [place] [address] Care Team Providers Care Tractor Engine Assembler Name Role Phone Carlos Joyner MD Unavailable [phone] Jadon Murray MD Unavailable [phone] Maru Villagomez RN Unavailable Unavailable Ang Slade MD Unavailable [phone] Carlos Joyner MD Unavailable [phone] nAg Slade MD Unavailable [phone] Lakshmi Wilhelm-C Unavailable [phone] Heladio Willoughby MD Primary Care Provider [phone] Heladio Willoughby MD Unavailable Alissa Perez PA-C Unavailable [phone] Lakshmi Wilhelm-C Unavailable [phone] Aidee Valero PA-C Unavailable [phone] Encounter Details Date Type Department Care Team (Latest Contact Info) Description 06/11/2024 Travel Social History Tobacco Use Types Packs/Day [...] st Contact Info) Description 07/21/2024 4:00 PM TELECOM NETWORK MANAGER Office Visit [facility] [address] [place] [phone] [place] [address] [place], [place] [phone] 09/07/2024 8:30 AM CDT Virtual Visit [facility] [address] [place] [address] Carlos Joyner MD [address] [place] [address] 983785 09/20/2024 11:00 AM CDT Office Visit [facility] [address] [phone] Sugey Mccoy, FLATTENING MACHINE OPERATOR DOOR PULLER [address] [place] [address] documented as of this encounter Visit Diagnoses Not on filedocumented in this encounter Care Teams Tractor Engine Assembler Relationship Specialty Start [place] [address] [facility] [place] [address] PCP - General 03/05/23 Carlos Joyner MD [address] [place] [address] Urology 12/09/19 Jadon Murray MD [facility] [address] [place] [address] Referring Physician Pediatric Surgery 12/09/19 Maru Villagomez, RN Registered Nurse 12/10/19 Ang Slade MD [address] [place] [address] 511905 Urology 04/24/20 Carlos Joyner MD [address] [place] [address] 026085 Assigned Surgical Provider 12/24/20 Ang Slade MD [address] [address] Urology 12/18/22 Lakshmi Wilhelm PA-C [address] [place] [address] Physician Fiction And Nonfiction Author Urology 02/03/23 [place] [address] [place] [address] Assigned PCP 02/06/23 Alissa Perez PA-C [address] [place] [address] Physician Fiction And Nonfiction Author Surgery 09/04/23 Lakshmi Wilhelm PA-C [address] [place] [address] Physician Fiction And Nonfiction Author Urology 09/16/23 Aidee Valero PA-C [address] [place] [address] Assigned Musculoskeletal Provider 04/17/24 Tanisha Marlow [facility]0 [facility] [address] 03/30/24 documented as of this encounter
--- OUTSIDE RECORDS SUMMARY | 2024-07-18 21:58 | XMS_ITS | Encounter Summary ---
Author Organization [facility] Address [address] [place] [address] Care Team Providers Care Licensed Staff Mft Name Role Phone Carlos Joyner MD Unavailable [phone] Jadon Murray MD Unavailable [phone] Maru Villagomez RN Unavailable Unavailable Ang Slade MD Unavailable [phone] Carlos Joyner MD Unavailable [phone] Ang Slade MD Unavailable [phone] Lakshmi Wilhelm-C Unavailable Heladio Willoughby MD Primary Care Provider [phone] Heladio Willoughby MD Unavailable Alissa Perez PA-C Unavailable [phone] Lakshmi Wilhelm-C Unavailable [phone] Aidee Valero PA-C Unavailable Reason for Visit * Reason Comments Medication Refill Encounter Details Date Type Department Care Team (Late st Contact Info) Description 07/05/2024 Refill [facility] [address] [place] [address] Carlos Joyner MD [address] [place] [address] Medication Refill Social History Tobacco Use Types Packs/Day Years [...] encounter Miscellaneous Notes * Telephone Encounter - Karlie Johnson RN - 07/09/2024 10:15 AM CST Last Written Prescription: indapamide (LOZOL) 1.25 MG tablet 1.25 mg, EVERY MORNING Summary: Take 1 tablet (1.25 mg) by mouth every morning, Disp-90 tablet, R-3, E-Prescribe Dose, Route, Frequency: 1.25 mg, Oral, EVERY MORNINGStart: 06/17/2023Ord/Sold: 06/17/2023 (O)Ordered On: 4Pharmacy: [id number] [address] Associated: Taking: Long-term: Med Note: Patient Sig: Take 1 tablet (1.25 mg) by mouth every morning Ordering Department: [facility] UR[facility] Authorized By: Carlos Joyner MD Dispense: 90 tablet Refills: 3 ordered Last Visit Date: 09/23/23 Anya MANRIQEU Future Visit Date: 09/07/24 [] Refill decision: Medication refilled per ???Medication Refill in Solid Waste Technician?? policy. [] Supervision: no future appointment scheduled. Scheduling has been notified to contact the pt forappointment. [x] Refill decision: Medication unable to be refilled by RN due to: Other: Associated diagnosis needed Request from pharmacy: Requested Prescriptions Pending Prescriptions Disp Refills indapamide (LOZOL) 1.25 MG tablet [Pharmacy Med Name: Indapamide Oral Tablet 1.25 MG] 90 tablet 0 Sig: TAKE ONE TABLET BY MOUTH EVERY DAY IN THE MORNING. Diuretics (Including Combos) Protocol Failed - 07/09/2024 10:15 AM Failed - Medication indicated for associated diagnosis Medication is associated with one or more of the following diagnoses: Edema Hypertension Heart Failure Meniere's Disease Bilateral localized swelling of lower limbs Pulmonary Hypertension Passed - Most recent blood pressure under 140/90 in past 12 months BP Readings from Last 3 Encounters: 12/08/23 127/83 09/02/23 116/64 04/23/23 118/73 No data recorded Passed - Potassium level on file in past 12 months Passed - Medication is active on med list and the sig matches. RN to manually verify dose and sig if red X/fail. If the protocol passes (green check), you do not need to verify med dose and sig. A prescription matches if they are the same clinical intention. For Example: once daily and every morning are the same. For all fails (red x), verify dose and sig. If the refill does match what is on file, the RN can still proceed to approve the refill request. If they do not match, route to the appropriate provider. Passed - Has GFR on file in past 12 months and most recent value is normal Passed - Recent (12 mo) or future (90 days) visit within the authorizing provider's specialty The patient must have completed an in-person or virtual visit within the past 12 months or has a future visit scheduled within the next 90 days with the authorizing provider???s specialty. Urgent care and e-visits do not qualify as an office visit for this protocol. Passed - Patient is age 18 or older Passed - No active pregancy on record Passed - No positive test in past 12 months Elysia Emanuel RN [facility] Central Nursing/Red Flag Triage & Med Refill Team SUPPORT TECHNICIAN documented in this encounter Plan of Treatment Upcoming Encounters Date Type Department Care Team (Late st Contact Info) Description 07/21/2024 4:00 PM IT SUPPORT TECHNICIAN Office Visit [facility] [address] [place] [phone] [place] [address] [place], [place] [phone] 09/07/2024 8:30 AM CDT Virtual Visit [facility] [address] [place] [phone] Carlos Joyner MD [address] [place] [address] 312065 09/20/2024 11:00 AM CDT Office Visit [facility] [address] [phone] Sugey Mccoy, RISK CONTROL PRODUCT LIABILITY DIRECTOR [address] [address] documented as of this encounter Visit Diagnoses Diagnosis Hypercalciuria Unspecified disorders of calcium metabolism documented in this encounter Care Teams Licensed Staff Mft Relationship Specialty Start [place] [address] [place], [place] [phone] PCP - General 03/05/23 Carlos Joyner MD [address] [place] [address] 301935 Urology 12/09/19 Jadon Murray MD [facility] [address] [id number] Referring Physician Pediatric Surgery 12/09/19 Maru Villagomez, OTILIO Registered Nurse 12/10/19 Ang Slade MD [address] [place] [address] Urology 04/24/20 Carlos Joyner MD [address] [place] [address] Assigned Surgical Provider 12/24/20 Ang Slade MD [address] [place] [address] Urology 12/18/22 Lakshmi Wilhelm PA-C [address] [place] [address]43 Physician Edging Machine Operator Urology 02/03/23 [place] [address] [place], [place] 1493668 Assigned PCP 02/06/23 Alissa Perez PA-C [address] [place] [address] 292995 Physician Edging Machine Operator Surgery 09/04/23 Lakshmi Wilhelm PA-C 909 [place], [place] 335625 Physician Edging Machine Operator Urology 09/16/23 Aidee Valero PA-C [address] [place] [address] 974975 Assigned Musculoskeletal Provider 04/17/24 Tanisha Marlow 4120 [facility] [address] 03/30/24 documented as of this encounter
--- OUTSIDE RECORDS SUMMARY | 2024-07-18 21:58 | XMS_ITS | Clinical Summary ---
Author Organization [facility] Address [address] [place] [address] Care Team Providers Care Change Of Address Clerk Name Role Phone Ignacia Duran MD Primary Care Provider [phone] Allergies Active Allergy Reactions Criticality Noted Date [...] recurrent major depressive d isorder 11/23/2018 S/P STRUCTURAL WORKER shunt 04/29/2011 UTI (urinary tract infection) 04/24/2011 Paraplegia 02/21/2009 Spina bifida of dorsal region 02/21/2009 Resolved Problems Problem Noted Date Diagnosed Date Resolved Date Adjustment disorder with mix ed disturbance of emotions and conduct 07/04/2011 11/23/2018 Immunizations Name Administration Dates Next Due DTaP 01/18/2008,05/06/2005 RFaA-JeeP-UIZ (Pediarix) 05/27/2003,03/21/2003,0 2002 HIB PRP-T (ActHIB,Hiberix) 05/27/2003,03/21/2003 [...] on file Legal Sex Female 6:29 AM DIRECTOR PRIVATE MUSIC THERAP[employer] AGENCY Gender Identity Not on file Sexual Orientation [...] Comments Blood Pressure 123/80 07/12/2021 1:30 PM DIRECTOR PRIVATE MUSIC THERAPY AGENCY Pulse 98 07/12/2021 1:30 PM DIRECTOR PRIVATE MUSIC THERAPY AGENCY Temperature 36.9 C (98.5 F) 07/12/2021 1:30 PM DIRECTOR PRIVATE MUSIC THERAPY AGENCY Respiratory Rate 18 07/03/2015 5:27 PM DIRECTOR PRIVATE MUSIC THERAPY AGENCY Oxygen Saturation 98% 07/12/2021 1:30 PM DIRECTOR PRIVATE MUSIC THERAPY AGENCY Inhaled Oxygen Concentration - - Weight 61.2 kg (135 lb) 07/03/2015 5:27 PM DIRECTOR PRIVATE MUSIC THERAPY AGENCY Height - - Body Mass Index - [...] age 11-21 Completed 06/17/2019, 01/16/2015 Insurance MEDICAID [facility] MEDICARE PART A HB ONLY MEDICARE PART B HB ONLY MEDICARE [place] ONLY MEDICAID [id number] [place] [address] Advance Directives Documents on File Type Date Recorded Patient Sr. Operations Manager Expl anation Power of Dial Lathe Operator 06/24/2023 1:00 PM Care Teams Change Of Address Clerk Relationship Specialty Start Date End Date Ignacia Duran MD PCP - General Pediatric 10/07/19
--- OUTSIDE RECORDS SUMMARY | 2024-07-18 21:59 | XMS_ITS | Patient Health Record ---
Author Organization [facility] Address [facility] [place] [address] [place] [address] Care Team Providers Care Meat Carrier Name Role Phone Ignacia Duran MD Primary Care Provider [phone] ADOLFO PAZ MD Reason For Referral No Information Medications Medication SIG (Take, Route, Fr equency, Duration) Notes Start Date End Date Status Gentamicin Sulfate 40 MG/ML 30ML QHS Intravesically BID for 30 days 12/30/2019 Active Problems Problem Type SNOMED Code ICD Code Onset Dates Problem Status W/U Status Risk Notes Problem 377600064 Neurogenic bladd er (N31.9) Active confirmed Problem Hydrocephalus (604035784) Hydrocephalus (G91.9) Active confirmed Problem 64764655 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 Problem 975750144 Acute pyonephros is (N13.6) Active confirmed Problem 934910842 Obesity (BMI 30-39.9) (E66.9) Active confirmed Problem 86087755 Spina bifida of lumbosacral region with 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) Active confirmed Problem 23835928 Acute pyelonephritis (N10) Active confirmed Problem Sepsis (06453796) Sepsis, due to unspecified organism (A41.9) Active confirmed Problem 72969751 Bilateral nephrolithiasis (N20.0) Active confirmed Plan Of Treatment Pending Test Test Name Order Date UDS- Flow, ru, EMG, CMG w/UA/UC and mario tion 12/02/2019 Insurance Providers Payer Name Payer Address Payer Phone Subscriber Number Group Number Insured Name Patient Relationship to Insured Coverage Start Date Coverage End Date [facility] [address] [address] [place] [address] [phone] [id number] Fe Escudero Child - Insured has Financial Responsibility [facility] [address] [address] [place] [address] [id number] Laina Escudero Self - patient is the insured
--- OUTSIDE RECORDS SUMMARY | 2024-07-18 21:59 | XMS_ITS | Encounter Summary ---
Author Organization [facility] Address [address] [place] [address] Care Team Providers Care Radiologic Technology Teacher Name Role Phone Carlos Joyner MD Unavailable [phone] Jadon Murray MD Unavailable [phone] Maru Villagomez RN Unavailable Unavailable Ang Slade MD Unavailable [phone] Carlos Joyner MD Unavailable [phone] Ang Slade MD Unavailable [phone] Lakshmi Wilhelm PA-C Unavailable Heladio Willoughby MD Primary Care Provider [phone] Heladio Willoughby MD Unavailable Alissa Perez PA-C Unavailable [phone] Lakshmi Wilhelm PA-C Unavailable [phone] Aidee Valero PA-C Unavailable [phone] Encounter Details Date Type Department Care Team (Late st Contact Info) Description 02/13/2024 [facility] Medical [facility] [address] [place] [address] Carlos Joyner MD [address] [place] [address] Social History Tobacco Use Types Packs/Day [...] st Contact Info) Description 07/21/2024 4:00 PM CONTENT STRATEGIST Office Visit [facility] [address] [place] [address] [place] [address] [place] [address] 09/07/2024 8:30 AM CDT Virtual Visit [facility] Urology Clinic [address] [place] [address] Carlos Joyner MD [address] [place] [address] 09/20/2024 11:00 AM CDT Office Visit [facility] [address], [place] [phone] Sugey Mccoy, MEDIA JOB TITLES DINING CHAIR SEAT CUSHION TRIMMER [address] [place], [place] 96[address] documented as of this encounter Visit Diagnoses Not on filedocumented in this encounter Care Teams Radiologic Technology Teacher Relationship Specialty Start [place] [address] [place] [address] PCP - General 03/05/23 Carlos Joyner MD [address] [place] [address] 965725 Urology 12/09/19 Jadon Murray MD [facility] [address] [facility] [address] [place], [place] [phone] Referring Physician Pediatric Surgery 12/09/19 Maru Villagomez, RN Registered Nurse 12/10/19 Ang Slade MD [address] [place] [address] 394 [place] [address] Urology 04/24/20 Carlos Joyner MD [address] [place] [address] 532725 Assigned Surgical Provider 12/24/20 Ang Slade MD [address] [place] [address] 394 [place] [address] Urology 12/18/22 Lakshmi Wilhelm PA-C [address] [place] [address] 934435 Physician Silviculturist Urology 02/03/23 [place] [address] [facility] [place] [address] Assigned PCP 02/06/23 Alissa Perez PA-C [address] [place] [address] 648635 Physician Silviculturist Surgery 09/04/23 Lakshmi Wilhelm PA-C [address] [place] [address] 147995 Physician Silviculturist Urology 09/16/23 Aidee Valero PA-C [address] [place] [address] 609895 Assigned Musculoskeletal Provider 04/17/24 Tanisha Marlow 4120 [facility] [address] 03/30/24 documented as of this encounter
--- OUTSIDE RECORDS SUMMARY | 2024-07-18 21:59 | XMS_ITS | Encounter Summary ---
Author Organization [facility] Address [address] [place] [address]. [place] [address] Care Team Providers Care Headend Technician Name Role Phone Carlos Joyner MD Unavailable [phone] Jadon Murray MD Unavailable [phone] Maru Villagomez RN Unavailable Unavailable Ang Slade MD Unavailable [phone] Carlos Joyner MD Unavailable [phone] Ang Slade MD Unavailable [phone] Lakshmi Wilhelm-C Unavailable [phone] Heladio Willoughby MD Primary Care Provider [phone] Heladio Willoughby MD Unavailable Alissa Perez PA-C Unavailable [phone] Lakshmi Wilhelm-C Unavailable [phone] Aidee Valero PA-C Unavailable [phone] Reason for Visit * Reason Onset Date Comments Forms 02/06/2024 [facility] [employer] - Medication Authorization Form Encounter Details Date Type Department Care Team (Late st Contact Info) Description 02/06/2024 [facility] [address] [place] [address] [place] [address] [place] [address] Forms ([facility] Education Make Up Editor... Social History Tobacco Use Types Packs/Day Years [...] Authorization Form Who is the form from? [facility] (if other please explain) Where did/will the form come from? form was sent via [employer] When is form/letter needed by: [facility] How would you like the form/letter returned: [employer] Printed forms and placed in provider's basket for review and signature Kasia Gutierrez Lead Bobbin [facility] documented in this encounter Plan of Treatment Upcoming Encounters Date Type Department Care Team (Late st Contact Info) Description 07/21/2024 4:00 PM VICE PRESIDENT DIGITAL STRATEGIST Office Visit [facility] [address] [place] [phone] [place] [address] [place] [address] 09/07/2024 8:30 AM CDT Virtual Visit [facility] [address] [place] [phone] Carlos Joyner MD [address] [place] [address] 686655 09/20/2024 11:00 AM CDT Office Visit [facility] [place] [address] [place] [phone] Sugey Mccoy, MAT MACHINE TENDER [address] [place], [place] [address] documented as of this encounter Visit Diagnoses Not on filedocumented in this encounter Care Teams Headend Technician Relationship Specialty Start [place] [address] [place] [address] PCP - General 03/05/23 Carlos Joyner MD [address] [place] [address] [phone] Urology 12/09/19 Jadon Murray MD [facility] [address] [address] Referring Physician Pediatric Surgery 12/09/19 Maru Villagomez, RN Registered Nurse 12/10/19 Ang Slade MD [address] [place] [address] Urology 04/24/20 Carlos Joyner MD [address] [place] [address] 612145 Assigned Surgical Provider 12/24/20 Ang Slade MD [address] [place] [address] Urology 12/18/22 Lakshmi Wilhelm PA-C [address] [place] [address] 970695 Physician Dependency Case Manager Urology 02/03/23 [place] [address] [place] [address] Assigned PCP 02/06/23 Alissa Perez PA-C [address] [place] [address] 305765 Physician Dependency Case Manager Surgery 09/04/23 Lakshmi Wilhelm PA-C [address] [place] [address] 497305 Physician Dependency Case Manager Urology 09/16/23 Aidee Valero PA-C [address] [place] [address] [id number] Assigned Musculoskeletal Provider 04/17/24 Tanisha Marlow [facility] [address] 03/30/24 documented as of this encounter
--- OUTSIDE RECORDS SUMMARY | 2024-07-18 21:59 | XMS_ITS | Encounter Summary ---
Author Organization [employer] Address [address] [place] [address] Care Team Providers Care Barrel Planer Name Role Phone Carlos Joyner MD Unavailable [phone] Jadon Murray MD Unavailable [phone] Maru Villagomez RN Unavailable Unavailable Ang Slade MD Unavailable [phone] Carlos Joyner MD Unavailable [phone] Ang Slade MD Unavailable [phone] Lakshmi Wilhelm PA-C Unavailable [phone] Heladio Willoughby MD Primary Care Provider [phone] Heladio Willoughby MD Unavailable Alissa Perez PA-C Unavailable [phone] Lakshmi Wilhelm PA-C Unavailable [phone] Aidee Valero PA-C Unavailable [phone] Reason for Visit * Reason Onset Date Comments Appointment 03/09/2024 Encounter Details Date Type Department Care Team (Late st Contact Info) Description 03/09/2024 Telephone [facility] [place] [address] [facility] [address] 4th [place] [address] Unknown, Doctor, MD Appointment Social [...] st Contact Info) Description 07/21/2024 4:00 PM INTERNAL SPECIALIST Office [facility] [address] [place] [phone] [place] [address] [place] [address] 09/07/2024 8:30 AM CDT Virtual Visit [facility] [place] [address] [facility] 4th [place] [phone] Carlos Joyner MD [address] [place] [address] [phone] 09/20/2024 11:00 AM CDT Office Visit [facility] [address] [address] [place] [phone] Sugey Mccoy, SOLE LEATHER CUTTING MACHINE OPERATOR [facility] [address] [place] [address] [address] [place], [place] [address] documented as of this encounter Visit Diagnoses Not on filedocumented in this encounter Care Teams Barrel Planer Relationship Specialty Start [place] [address] [place] [address] PCP - General 03/05/23 Carlos Joyner MD [address] [place] [address] [phone] Urology 12/09/19 Jadon Murray MD [facility] [address] [facility] [address] [place] [address] Referring Physician Pediatric Surgery 12/09/19 Maru Villagomez, OTILIO Registered Nurse 12/10/19 Ang Slade MD [address] [place] [address] 394 [place] [address] Urology 04/24/20 Carlos Joyner MD [address] [place] [address] Assigned Surgical Provider 12/24/20 Ang Slade MD [address] [place] [address] Urology 12/18/22 Lakshmi Wilhelm PA-C [address] [place] [address] Physician Meter/Relay Craftsman Urology 02/03/23 [place] [address] [place] [address] Assigned PCP 02/06/23 Alissa Perez PA-C [address] [place] [address] Physician Meter/Relay Craftsman Surgery 09/04/23 Lakshmi Wilhelm PA-C [address] [place] [address] Physician Meter/Relay Craftsman Urology 09/16/23 Aidee Valero PA-C [address] [place] [address] Assigned Musculoskeletal Provider 04/17/24 Tanisha Marlow [address] [facility] [address] 03/30/24 documented as of this encounter
[2024-07-18 22:01] VITALS: BP 120/81; PULSE 106; RESP 18; TEMP 36.6; O2SAT 98
--- NOTE | 2024-07-18 22:21 | ED.GENADULT ---
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 She was hit in the headache and left face at about 2:00 a.m. this afternoon by a basketball. History is partially obtained from the patient and partly from her caregiver. She was at basketball practice today and she admits that she was not being full attention. Someone threw a basketball to her but it struck her in the left cheek and left side of her face. Injury happened about 2:00 a.m.. She was not knocked out but was momentarily dazed and vision went dark. About an hour to after that she started developing headache that is predominantly left-sided but is fairly diffuse. She was able to take some Tylenol for the headache and was somewhat better but came back this evening. This evening she also started developed nausea. No other painful injuries. No neck pain. No focal numbness or weakness in her arms or legs. No facial droop. No confusion. She was nauseous but did not vomit. She is not anticoagulated. Related Data Home Medications ?Medication ?Instructions ?Recorded ?Confirmed oxybutynin chloride 5 mg tablet 5 mg PO BID 07/21/22 06/10/24 indapamide 1.25 mg tablet 1.25 mg PO QAM 10/31/23 06/10/24 potassium chloride 10 mEq 10 meq PO BID 10/31/23 06/10/24 tablet,extended release(part/cryst) Previous Rx's ?Medication ?Instructions ?Recorded ciprofloxacin HCl 500 mg tablet 500 mg PO BID 10 days #20 tabs 05/02/24 (Cipro) ciprofloxacin HCl 500 mg tablet 500 mg PO BID #14 tabs 06/07/24 (Cipro) ondansetron 4 mg disintegrating 4 mg PO Q8H PRN nausea and 07/19/24 tablet vomiting #10 tabs Allergies Allergy/AdvReac Type Severity Reaction Status Date / Time ibuprofen Allergy Intermediate 1 Kidney Verified 10/31/23 19:52 vancomycin Allergy Intermediate Swapnil Verified 10/31/23 19:52 Syndrome latex Allergy Mild Rash Verified 10/31/23 19:52 PFSH [facility] Medical History (Updated 07/19/24 @ 00:20 by Carlos Acosta MD) Depression ?F32.A - Depression, unspecified (ICD-10) Paraplegia ?G82.20 - Paraplegia, unspecified (ICD-10) Horseshoe kidney ?Q63.1 - Lobulated, fused and horseshoe kidney (ICD-10) Mild intellectual disability ?F70 - Mild intellectual disabilities (ICD-10) Neurogenic bladder ?N31.9 - Neuromuscular dysfunction of bladder, unspecified (ICD-10) COVID-19 ?U07.1 - COVID-19 (ICD-10) Spina bifida ?Q05.9 - Spina bifida, unspecified (ICD-10) Surgical History (Updated 06/22/24 @ 00:00 by Keshawn Renee) History of spinal fusion ?Z98.1 - Arthrodesis status (ICD-10) H/O wisdom tooth extraction ?K08.409 - Partial loss of teeth, unspecified cause, unspecified class (ICD-10) Hx of nephrolithotomy with removal of calculi ?Z98.890 - Other specified postprocedural states (ICD-10) ?Z87.442 - Personal history of urinary calculi (ICD-10) S/P PLASTIC PARTS DESIGNER shunt ?Z98.2 - Presence of cerebrospinal fluid drainage device (ICD-10) Family History (Updated 04/29/24 @ 02:08 by Jadon Thompson MD) Father Diabetes Mother Bipolar 1 disorder Social History What is your current living situation?: I presently have a place to live Problems where you live: no known problems Problems where you live details: no known problems In the past 12 months, utilities in danger of being shut off: no In past 12 months, lack of transportation kept you from medical appts, meetings, work, or getting things needed for daily living: no In the past 12 mos, have been you worried that your food would run out before you had money to buy more?: never true In the past 12 mos, the food you bought just didn't last and you didn't have money to buy more?: never true Smoking Status: Never smoker Do you use any of these nicotine containing products: None Second hand tobacco smoke exposure: No How often do you have a drink containing alcohol: never AUDIT-C Alcohol total score: 0 Non-prescribed substance use: denies use Caffeine: Yes (Coffee) How often does anyone, including family, friends and others, physically hurt you: never How often does anyone, including family, friends and others, insult or talk down to you: never How often does anyone, including family, friends and others, threaten you with harm: never How often does anyone, including family, friends and others, scream or curse at you: never service: No Exam Narrative: Exam Narrative: Constitutional: Appears well-developed and well-nourished. Alert. Conversant. Non toxic. HENT: Head: Atraumatic. No depressed skull fracture, Raccoon Eyes, Slater's sign, or hemotympanum. Face normal. TMs normal Nose: Nose normal. Mouth/Throat: Oral mucosa is clear and moist. no trismus. Pharynx normal. Tonsils symmetric. No tonsillar enlargement, erythema, or exudate. Eyes: Conjunctivae normal. EOM normal. Pupils equal, round, and reactive to light. No scleral icterus. Neck: Normal range of motion. Neck supple. No tracheal deviation present. Cardiovascular: Normal rate, regular rhythm. No gallop. No friction rub. No murmur heard. Pulmonary/Chest: Effort normal. No stridor. No respiratory distress. No wheezes. No rales. No rhonchi . Abdominal: Soft. Bowel sounds normal. No distension. No mass. No tenderness. No rebound. No guarding. Musculoskeletal: RUE: Normal range of motion. No tenderness. No deformity LUE: Normal range of motion. No tenderness. No deformity RLE: Normal range of motion. No edema. No tenderness. No deformity LLE: Normal range of motion. No edema. No tenderness. No deformity Neurological: Alert and oriented to person, place, and time. Normal strength. She is in her wheelchair. She is at her neurologic baseline. Moves both upper extremities purposefully. Strength 5/5 bilaterally in the deltoid, biceps, triceps, laborer, wrist extensors, wrist flexors. Sensation intact to light touch bilaterally in the upper extremities. Skin: Skin is warm and dry. No rash noted. No pallor. Normal capillary refill. Psychiatric: Normal mood. Normal affect. Const: Vital Signs, click to edit/add: Vital Signs - 24 hr 07/18/24 22:01 07/19/24 00:30 Temperature 97.9 F Pulse Rate [Left P ulse Oximeter] 106 H 98 Respiratory Rate 18 18 Blood Pressure [Ri ght Upper Arm] 120/81 Pulse Oximetry 98 96 Oxygen Delivery Me thod Room Air Course Vital Signs Vital signs: Initial Vital Signs Temperature 97.9 F 07/18/24 22:01 Temperature Source Temporal Artery Scan 07/18/24 22:01 Pulse Rate 106 H 07/18/24 22:01 Pulse Rhythm Regular 07/18/24 22:01 Respiratory Rate 18 07/18/24 22:01 Blood Pressure 120/81 07/18/24 22:01 Blood Pressure Mean 94 07/18/24 22:01 Blood Pressure Position Sitting 07/18/24 22:01 Pulse Oximetry 98 07/18/24 22:01 Oxygen Delivery Method Room Air 07/18/24 22:01 Vital Signs Temperature 97.9 F 07/18/24 22:01 Pulse Rate 106 H 07/18/24 22:01 Respiratory Rate 18 07/18/24 22:01 Blood Pressure 120/81 07/18/24 22:01 Pulse Oximetry 98 07/18/24 22:01 Oxygen Delivery Method Room Air 07/18/24 22:01 Temperature 97.9 F 07/18/24 22:01 Pulse Rate 98 07/19/24 00:30 Respiratory Rate 18 07/19/24 00:30 Blood Pressure 120/81 07/18/24 22:01 Pulse Oximetry 96 07/19/24 00:30 Oxygen Delivery Method Room Air 07/18/24 22:01 Medications Administered Medications: Discontinued Medications Generic Name Dose Route Start Last Admin Trade Name Freq PRN Reason Stop Dose Admin Acetaminophen 1,000 mg 07/18/24 22:32 07/18/24 22:46 Acetaminophen 500 Mg Tablet PO 07/18/24 22:33 1,000 mg ONCE ONE Administration Ondansetron HCl 4 mg 07/18/24 22:32 07/18/24 22:45 Ondansetron Odt 4 Mg Tab PO 07/18/24 22:33 4 mg ONCE ONE Administration Medical Decision Making MDM Narrative Medical decision making narrative: This patient presents with blunt head trauma. Differential includes intracranial injuries (e.g. skull fracture, epidural hematoma, subdural hematoma, intracerebral hemorrhage, and traumatic subarachnoid hemorrhage), verses concussion or other traumatic brain injury. With history of PLASTIC PARTS DESIGNER shunt associated with headache and vomiting, I felt CT was indicated. Fortunately she is not anticoagulated. CT imaging was obtained and fortunately was normal. At this time it appears that the patient's symptoms are due to a concussion. The patient/family understand that they must return if any red flags appear/develop in the coming hours/days, as this may represent an indication to perform a repeat CT scan or further evaluation. I have noted that red flags include: headaches that get worse, increased drowsiness, strange behavior, repetitive speech, seizures, repeated vomiting, growing confusion, increased irritability, slurred speech, weakness or numbness, and loss of responsiveness. This information will also be provided in writing at discharge. I have discussed the second impact syndrome, and the importance of not sustaining repeated concussion in the next 1-2 weeks. Post concussive syndrome is also discussed. The patient's questions have been answered. They have a responsible adult to accompany them home. Imaging Data CT scan - head: Attestation: I have reviewed the pertinent imaging results. Radiologist's impression: IMPRESSION: No acute intracranial abnormality. No significant change compared to prior CT head. Discharge Plan Discharge Clinical Impression: Concussion Patient Disposition: Home, Self-Care Condition: Stable Instructions: Concussion (ED) Additional Instructions: As we discussed, return to the ER right away if you have worsening or severe headache, uncontrolled vomiting, seizures, confusion, or any other concerns Use Tylenol if needed for headache. Use the Zofran if needed for nausea or vomiting If not completely improved within 3-5 days, please recheck with your regular doctor or come back to the ER. Prescriptions: New ondansetron 4 mg tablet,disintegrating 4 mg PO Q8H PRN (Reason: nausea and vomiting) Qty: 10 0RF No Action oxybutynin chloride 5 mg tablet 5 mg PO BID indapamide 1.25 mg tablet 1.25 mg PO QAM potassium chloride 10 mEq tablet,ER particles/crystals 10 meq PO BID ciprofloxacin HCl [Cipro] 500 mg tablet 500 mg PO BID Qty: 14 0RF ciprofloxacin HCl [Cipro] 500 mg tablet 500 mg PO BID 10 Days Qty: 20 0RF Follow Up/Referrals: Ignacia Duran MD [Primary Care Provider] - Stand Alone Forms: [employer] Info Instructions
--- NOTE | 2024-07-18 22:32 | CRLHL7_ITS ---
For Patients: As a result of the Century Cures Act, medical imaging exams and procedure reports are released immediately into your electronic medical record. You may view this report before your referring provider. If you have questions, please contact your health care provider. INDICATION: Headache and nausea. Hit by basketball. 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 TECHNIQUE: CT head without contrast. COMPARISON: CT head 06/07/2024. FINDINGS: Again noted is a right parietal approach ventricular catheter unchanged in position. No hydrocephalus appreciated. No acute intracranial hemorrhage or CT evidence of acute territorial infarct, however evaluation is somewhat limited by streak artifact. Postoperative changes of the calvarium are evident without acute calvarial fracture. Visualized paranasal sinuses and mastoid air cells are ventilated. IMPRESSION: No acute intracranial abnormality. No significant change compared to prior CT head. Please note that all CT scans at this facility use dose modulation, iterative reconstruction, and/or weight-based dosing when appropriate to reduce radiation dose to as low as reasonably achievable. Dictated by Joshua Edwards MD @ 07/18/2024 11:34:09 PM (Electronically Signed)
[2024-07-18] MEDS: ONDANSETRON ODT 4 MG TAB PO (22:45)
[2024-07-18] MEDS: ACETAMINOPHEN 500 MG TABLET 1000 MG PO (22:46)
--- OUTSIDE RECORDS SUMMARY | 2024-07-18 22:46 | XMS_ITS | Encounter Summary ---
Author Organization [facility] Address [address] [place] [address] Care Team Providers Care Unit Tender Name Role Phone Carlos Joyner MD Unavailable [phone] Jadon Murray MD Unavailable [phone] Maru Villagomez RN Unavailable Unavailable Ang Slade MD Unavailable [phone] Carlos Joyner MD Unavailable [phone] Ang Slade MD Unavailable [phone] Lakshmi Wilhelm PA-C Unavailable Heladio Willoughby MD Primary Care Provider [phone] Heladio Willoughby MD Unavailable Alissa Perez PA-C Unavailable [phone] Lakshmi Wilhelm PA-C Unavailable [phone] Aidee Valero PA-C Unavailable [phone] Encounter Details Date Type Department Care Team (Late st Contact Info) Description 09/18/2023 [facility] [address] [place] [address] Carlos Joyner MD [address] [place] [address] Social History Tobacco Use Types Packs/Day [...] st Contact Info) Description 07/21/2024 4:00 PM INFORMATION TECHNOLOGY INTERNSHIP Office Visit [facility] [address] [place] [address] [place] [address] [place] [address] 09/07/2024 8:30 AM CDT Virtual Visit [facility] [address] [place] [address] Carlos Joyner MD [address] [place] [address] 09/20/2024 11:00 AM CDT Office Visit [facility] [address], [place] [phone] Sugey Mccoy, CIRCLE EDGER CATHEAD WORKER [address] [place], [place] [address] documented as of this encounter Visit Diagnoses Not on filedocumented in this encounter Care Teams Unit Tender Relationship Specialty Start [place] [address] [place] [address] PCP - General 03/05/23 Carlos Joyner MD [address] [place] [address] [id number] Urology 12/09/19 Jadon Murray MD [facility] [address] [facility] [address] [place], [place] [phone] Referring Physician Pediatric Surgery 12/09/19 Maru Villagomez, RN Registered Nurse 12/10/19 Ang Slade MD [address] [place] [address] 394 [place] [address] Urology 04/24/20 Carlos Joyner MD [address] [place] [address] 336605 Assigned Surgical Provider 12/24/20 Ang Slade MD [address] [place] [address] 394 [place] [address] Urology 12/18/22 Lakshmi Wilhelm PA-C [address] [place] [address] 671005 Physician Motor Racer Urology 02/03/23 [place] [address] [facility] [place] [address] Assigned PCP 02/06/23 Alissa Perez PA-C [address] [place] [address] 954785 Physician Motor Racer Surgery 09/04/23 Lakshmi Wilhelm PA-C [address] [place] [address] 330375 Physician Motor Racer Urology 09/16/23 Aidee Valero PA-C [address] [place] [address] [id number] Assigned Musculoskeletal Provider 04/17/24 Tanisha Marlow [address] [facility] [address] 03/30/24 documented as of this encounter
--- OUTSIDE RECORDS SUMMARY | 2024-07-18 22:46 | XMS_ITS | Encounter Summary ---
Author Organization [place] Address [address] [place] [address] 96809 Care Team Providers Care Pharmacovigilance Scientist Name Role Phone Carlos Joyner MD Unavailable [phone] Jadon Murray MD Unavailable [phone] Maru Villagomez RN Unavailable Unavailable Ang Slade MD Unavailable [phone] Carlos Joyner MD Unavailable +[phone] Ang Slade MD Unavailable +[phone] Lakshmi Wilhelm PA-C Unavailable [phone] Heladio Willoughby MD Primary Care Provider [phone] Heladio Willoughby MD Unavailable Alissa Perez PA-C Unavailable [phone] Lakshmi Wilhelm-C Unavailable [phone] Aidee Valero PA-C Unavailable +[phone] Encounter Details Date Type Department Care Team (Late st Contact Info) Description 08/18/2023 [facility] Medical Advice [facility] [id number] [place] [address] Analisa Conner Social History Tobacco Use [...] st Contact Info) Description 07/21/2024 4:00 PM CIGAR BRANDER Office Visit [facility] [address] [place] [phone] [place] [address] [place] [address] 09/07/2024 8:30 AM CDT Virtual Visit [facility] [address] [address] Carlos Joyner MD [address] [place] [address] 693925 09/20/2024 11:00 AM CDT Office Visit [facility] [address] [place] [phone] Sugey Mccoy, ESCALATOR ATTENDANT [facility] [address] [place], [place] [address]E [address] [place], [place] 79[address] documented as of this encounter Visit Diagnoses Not on filedocumented in this encounter Care Teams Pharmacovigilance Scientist Relationship Specialty Start [place] [address] [place] [address] PCP - General 03/05/23 Carlos Joyner MD [address] [place] [address] 37744 Urology 12/09/19 Jadon Murray MD [facility] 2530 [facility] [address] [place] [address] Referring Physician Pediatric Surgery 12/09/19 Maru Villagomez, OTILIO Registered Nurse 12/10/19 Ang Slade MD [address] [place] [address] 395135 Urology 04/24/20 Carlos Joyner MD [address] [place] [address] 42006 Assigned Surgical Provider 12/24/20 Ang Slade MD [address] [place] [address] 618[address] Urology 12/18/22 Lakshmi Wilhelm PA-C [address] [place] [address] 417675 Physician System Engineer Urology 02/03/23 [place] [address] [address] [place] [address] Assigned PCP 02/06/23 Alissa Perez PA-C [address] [place] [address] 218015 Physician System Engineer Surgery 09/04/23 Lakshmi Wilhelm PA-C [address] [place] [address] 943875 Physician System Engineer Urology 09/16/23 Aidee Valero PA-C [address] [place] [address] 357565 Assigned Musculoskeletal Provider 04/17/24 Tanisha Marlow 4120 [facility] [address] 03/30/24 documented as of this encounter
--- OUTSIDE RECORDS SUMMARY | 2024-07-18 22:46 | XMS_ITS | Encounter Summary ---
Author Organization [place] Address [address] [place] [address] Care Team Providers Care Gas Appliance Servicer Name Role Phone Carlos Joyner MD Unavailable [phone] Jadon Murray MD Unavailable +[phone] Maru Villagomez RN Unavailable Unavailable Ignacia Duran MD Primary Care Provider Ang Slade MD Unavailable +[phone] Carlos Joyner MD Unavailable +[phone] Annalise Orta PA-C Unavailable +[phone] Ang Slade MD Unavailable +[phone] Lakshmi Wilhelm-C Unavailable [phone] Heladio Willoughby MD Primary Care Provider [phone] Heladio Willoughby MD Unavailable Alissa Perez PA-C Unavailable [phone] Lakshmi Wilhelm PA-C Unavailable +[phone] Aidee Valero PA-C Unavailable +[phone] Encounter Details Date Type Department Care Team (Late st Contact Info) Description 04/16/2021 [facility] [address] [place] [address] Berna Britton Social History Tobacco [...] st Contact Info) Description 07/21/2024 4:00 PM WINDOW GLASS INSTALLER Office Visit [facility] [address] [place] [address] [place] [address] [place], [place] 7394268 09/07/2024 8:30 AM CDT Virtual Visit [facility] U[facility] Clinic [address] [place] [phone] Carlos Joyner MD [address] [place] [address] 370925 09/20/2024 11:00 AM CDT Office Visit [facility] [place] [address] [place] [phone] Sugey Mccoy APRN [address] [place], [place] 6[address]34 documented as of this encounter Visit Diagnoses Not on filedocumented in this encounter Additional Health Concerns Infection Onset Date Last Indicated Resolved Time MRSA Comment:Added from external infection. Pt has had Staph infections but never MRSA from Care everywhere chart review. Removing MRSA 02.06.23 06/17/2019 02/06/2023 9:41 AM C DT documented as of this encounter Care Teams Gas Appliance Servicer Relationship Specialty Start Date End Date Ignacia Duran MD PCP - General Pediatrics 01/20/20 03/04/23 [place] [address] [place] [address] PCP - General 03/05/23 Carlos Joyner MD [address] [place] [address] 1964[address] Urology 12/09/19 Jadon Murray MD [facility] [address] [address] Referring Physician Pediatric Surgery 12/09/19 Maru Villagomez, RN Registered Nurse 12/10/19 Ang Slade MD [address] [place] [address] 518[address] Urology 04/24/20 Carlos Joyner MD [address] [place] [address]368 Assigned Surgical Provider 12/24/20 Annalise Orta PA-C 5200 [place] [address] Assigned Cancer Care Provider 05/13/21 11/01/22 Ang Slade MD [address] [place] [address] 92218 Urology 12/18/22 Lakshmi Wilhelm PA-C [address] [place] [address] 59758 Physician Demonstrator [employer]iances Urology 02/03/23 [place] [address] [facility] [place] [place] [address] Assigned PCP 02/06/23 Alissa Perez PA-C [address] [place] [address] Physician Demonstrator [employer] Surgery 09/04/23 Lakshmi Wilhelm PA-C [address] [place] [address] 480505 Physician Demonstrator [employer] Urology 09/16/23 Aidee Valero PA-C [address] [place] [address] 705135 Assigned Musculoskeletal Provider 04/17/24 Tanisha Marlow 4120 [facility] [address] 03/30/24 documented as of this encounter
--- OUTSIDE RECORDS SUMMARY | 2024-07-18 22:46 | XMS_ITS | Encounter Summary ---
Author Organization [place] Address [address] [place] [address] Care Team Providers Care Production Sound Mixer Name Role Phone Carlos Joyner MD Unavailable [phone] Jadon Murray MD Unavailable +[phone] Maru Villagomez RN Unavailable Unavailable Ignacia Duran MD Primary Care Provider Ang Slade MD Unavailable [phone] Carlos Joyner MD Unavailable +[phone] Annalise Orta PA-C Unavailable +[phone] Ang Slade MD Unavailable +[phone] Lakshmi Wilhelm-C Unavailable [phone] Heladio Willoughby MD Primary Care Provider Heladio Willoughby MD Unavailable Alissa Perez PA-C Unavailable [phone] Lakshmi Wilhelm PA-C Unavailable [phone] Aidee Valero PA-C Unavailable +[phone] Reason for Visit * Reason Onset Date Comments Patient/info Update 02/26/2021 pt currently intubated, will nto be able to have uro surgery Encounter Details Date Type Department Care Team ([facility] Contact Info) Description 02/26/2021 [facility] [address] [place] [address] Carlos Joyner MD [address] [place] [address] Patient/info Update (pt currently intubated, will nto [...] Lakshmi Chowdhury - 02/26/2021 2:07 PM CDT [facility] Phone Message May a detailed message be left on voicemail: yes Reason for Call: Other: Edith called in wanting to let Dr. Joyner and his team know that [facility] date [facility]09[facility]21. Please call back if thereare any questions at [phone] Action Taken: Message routed to: [facility] uro Travel Screening: Not Applicable documented in this encounter Plan of Treatment Upcoming Encounters Date Type Department Care Team (Late st Contact Info) Description 07/21/2024 4:00 PM SPRAY GUN SIZER Office Visit [facility] [address] [place] [address] [place] [address] [place] [address] 09/07/2024 8:30 AM CDT Virtual Visit [facility] Urology Clinic [address] [place] [phone] Carlos Joyner MD [address] [place] [address] 09/20/2024 11:00 AM CDT Office Visit [facility] [address] [place] [address] Sugey Mccoy, CANDY COOKER HELPER [facility] [address] [place] [address] [address] [place], [place] 317174 documented as of this encounter Visit Diagnoses Not on filedocumented in this encounter Additional Health Concerns Infection Onset Date Last Indicated Resolved Time MRSA Comment:Added from external infection. Pt has had Staph infections but never MRSA from Care everywhere chart review. Removing MRSA .14.06/17/2019 02/06/2023 9:41 AM C DT documented as of this encounter Care Teams Production Sound Mixer Relationship Specialty Start Date End Date Ignacia Duran MD PCP - General Pediatrics 01/20/20 03/04/23 [place] [address] [place] [address] PCP - General 03/05/23 Carlos Joyner MD [address] [place] [address] Urology 12/09/19 Jadon Murray MD [facility] [address] [address] Referring Physician Pediatric Surgery 12/09/19 Maru Villagomez, RN Registered Nurse 12/10/19 Ang Slade MD [address] [place] [address] Urology 04/24/20 Carlos Joyner MD [address] [place] [address] 30925 Assigned Surgical Provider 12/24/20 Annalise Orta PA-C 5200 [place] [address] Assigned Cancer Care Provider 05/13/21 11/01/22 Ang Slade MD [address] [place] [address] 13227 Urology 12/18/22 Lakshmi Wilhelm PA-C [address] [place] [address] 570955 Physician Administrative Appeals Tribunal Member Urology 02/03/23 [place] [address] [place] [address] Assigned PCP 02/06/23 Alissa Perez PA-C [address] [place] [address] 236445 Physician Administrative Appeals Tribunal Member Surgery 09/04/23 Lakshmi Wilhelm PA-C [address] [place] [address] 596065 Physician Administrative Appeals Tribunal Member Urology 09/16/23 Aidee Valero PA-C [address] [place] [address] 944675 Assigned Musculoskeletal Provider 04/17/24 Tanisha Marlow [address] [place] [address] 03/30/24 documented as of this encounter
--- OUTSIDE RECORDS SUMMARY | 2024-07-18 22:46 | XMS_ITS | Encounter Summary ---
Author Organization [place] Address [address] [place] [address]. [place] [address] Care Team Providers Care Gamma Facilities Operator Name Role Phone Carlos Joyner MD Unavailable [phone] Jadon Murray MD Unavailable [phone] Maru Villagomez RN Unavailable Unavailable Ang Slade MD Unavailable [phone] Carlos Joyner MD Unavailable [phone] Ang Slade MD Unavailable [phone] Lakshmi Wilhelm PA-C Unavailable [phone] Heladio Willoughby MD Primary Care Provider [phone] Heladio Willoughby MD Unavailable Alissa Perez PA-C Unavailable [phone] Lakshmi Wilhelm PA-C Unavailable [phone] Aidee Valero PA-C Unavailable [phone] Encounter Details Date Type Department Care Team (Late st Contact Info) Description 05/05/2023 [facility] [address] [place] [address] Rosita Velasco, RN Social History [...] st Contact Info) Description 07/21/2024 4:00 PM BELT LOOP CUTTER Office Visit [facility] [address] [place] [address] [place] [address] [place], [place] 8052668 09/07/2024 8:30 AM CDT Virtual Visit [facility] U[facility] Clinic [address] [address] Carlos Joyner MD [address] [place] [address] 62619455 09/20/2024 11:00 AM CDT Office Visit [facility] [address] [place] [address] Sugey Mccoy, BRICK MOLDER HAND EMBEDDED LINUX ENGINEER [address] [place] [address] [address] [place] [address] documented as of this encounter Visit Diagnoses Not on filedocumented in this encounter Care Teams Gamma Facilities Operator Relationship Specialty [place] [address] [place] [address] PCP - General 03/05/23 Carlos Joyner MD [address] [place] [address]59 Urology 12/09/19 Jadon Murray MD [facility] 2530 [facility] [address] [place] [address] Referring Physician Pediatric Surgery 12/09/19 Maru Villagomez, OTILIO Registered Nurse 12/10/19 Ang Slade MD [address] [address] Urology 04/24/20 Carlos Joyner MD [address] [place] [address] 469[address] Assigned Surgical Provider 12/24/20 Ang Slade MD [address] [address] Urology 12/18/22 Lakshmi Wilhelm PA-C [address] [place] [address] 536885 Physician Layer Up Urology 02/03/23 [place] [address] [place] [address] Assigned PCP 02/06/23 Alissa Perez PA-C [address] [place] [address] 284155 Physician Layer Up Surgery 09/04/23 Lakshmi Wilhelm PA-C [address] [place] [address] 885955 Physician Layer Up Urology 09/16/23 Aidee Valero PA-C [address] [place] [address] 811035 Assigned Musculoskeletal Provider 04/17/24 Tanisha Marlow 4120 [facility] [address] 03/30/24 documented as of this encounter
--- OUTSIDE RECORDS SUMMARY | 2024-07-18 22:46 | XMS_ITS | Encounter Summary ---
Author Organization [place] Address [address] [place] [address] Care Team Providers Care Project Development Manager Name Role Phone Carlos Joyner MD Unavailable [phone] Jadon Murray MD Unavailable [phone] Maru Villagomez RN Unavailable Unavailable Ignacia Duran MD Primary Care Provider Ang Slade MD Unavailable +[phone] Carlos Joyner MD Unavailable +[phone] Annalise Orta PA-C Unavailable +[phone] Ang Slade MD Unavailable +[phone] Lakshmi Wilhelm PA-C Unavailable [phone] Heladio Willoughby MD Primary Care Provider [phone] Heladio Willoughby MD Unavailable Alissa Perez PA-C Unavailable [phone] Lakshmi Wilhelm PA-C Unavailable [phone] Aidee Valero PA-C Unavailable +[phone] Encounter Details Date Type Department Care Team (Late st Contact Info) Description 07/19/2021 [facility] [place] 8[address] [facility] 4th [place] [address] Shyann Rehman Social History Tobacco [...] COVID-19? No / Unsure 06/19/2021 11:16 AM FERTILIZER PROCESSING SUPERVISOR documented as of this encounter Plan of Treatment Upcoming Encounters Date Type Department Care Team (Late st Contact Info) Description 07/21/2024 4:00 PM FERTILIZER PROCESSING SUPERVISOR Office Visit [facility] [address] [place] [phone] [place] [address] [place], [place] 9386268 09/07/2024 8:30 AM CDT Virtual Visit [facility] Urology Clinic [address] [phone] Carlos Joyner MD [address] [place] [address] 29943455 09/20/2024 11:00 AM CDT Office Visit [facility] [place] [address] [place] [phone] Sugey Mccoy, MARKET RESEARCH ASSISTANT [address] [phone] documented as of this encounter Visit Diagnoses Not on filedocumented in this encounter Additional Health Concerns Infection Onset Date Last Indicated Resolved Time MRSA Comment:Added from external infection. Pt has had Staph infections but never MRSA from Care everywhere chart review. Removing MRSA 9.14.23 06/17/2019 02/06/2023 9:41 AM C DT documented as of this encounter Care Teams Project Development Manager Relationship Specialty Start Date End Date Ignacia Duran MD PCP - General Pediatrics 01/20/20 03/04/23 [place] [address] [place] [address] PCP - General 03/05/23 Carlos Joyner MD [address] [place] [address] 375485 Urology 12/09/19 Jadon Murray MD [facility] [address] [address] Referring Physician Pediatric Surgery 12/09/19 Maru Villagomez, OTILIO Registered Nurse 12/10/19 Ang Slade MD [address] [place] [address] Urology 04/24/20 Carlos Joyner MD [address] [place] [address] 22513 Assigned Surgical Provider 12/24/20 Annalise Orta PA-C 5200 [place] [address] Assigned Cancer Care Provider 05/13/21 11/01/22 Ang Slade MD [address] [place] [address] 628895 Urology 12/18/22 Lakshmi Wilhelm PA-C [address] [place] [address] 584835 Physician Technician Automated Equipment Urology 02/03/23 [place] [address] [place] [address] Assigned PCP 02/06/23 Alissa Perez PA-C [address] [place] [address] 831005 Physician Technician Automated Equipment Surgery 09/04/23 Lakshmi Wilhelm PA-C [address] [place] [address] 686975 Physician Technician Automated Equipment Urology 09/16/23 Aidee Valero PA-C 909 [place], [place] 309745 Assigned Musculoskeletal Provider 04/17/24 Tanisha Marlow 4120 [facility] [address] 03/30/24 documented as of this encounter
--- OUTSIDE RECORDS SUMMARY | 2024-07-18 22:46 | XMS_ITS | Encounter Summary ---
Author Organization [place] Address [address] [facility] [place] [address] Care Team Providers Care Cop Winder Name Role Phone Carlos Joyner MD Unavailable [phone] Jadon Murray MD Unavailable +[phone] Maru Villagomez RN Unavailable Unavailable Ang Slade MD Unavailable +[phone] Carlos Joyner MD Unavailable +[phone] Ang Slade MD Unavailable [phone] Lakshmi Wilhelm PA-C Unavailable +[phone] Heladio Willoughby MD Primary Care Provider [phone] Heladio Willoughby MD Unavailable Alissa Perez PA-C Unavailable [phone] Lakshmi Wilhelm PA-C Unavailable [phone] Aidee Valero PA-C Unavailable [phone] Encounter Details Date Type Department Care Team (Late st Contact Info) Description 03/27/2023 [facility] Medical Advice UR PREOP/PHASE II 2450 [place] [phone] Lisette Salinas RN Social History Tobacco Use [...] an overnight senior living, or couch-surfing.) Yes 02/26/2023 Are you worried [...] st Contact Info) Description 07/21/2024 4:00 PM CRUDE OIL TREATER Office Visit [facility] [address] [place] [address] [place] [address] [place] [address] 09/07/2024 8:30 AM CDT Virtual Visit [facility] Clinic [address] [place] [address] Carlos Joyner MD 909 [place], [place] 483685 09/20/2024 11:00 AM CDT Office Visit [facility] [address] [place] [address] Sugey Mccoy, BRIDGE REPAIR CREW PERSON BUSINESS MANAGEMENT ASSOCIATE [address] [place] [address] documented as of this encounter Visit Diagnoses Not on filedocumented in this encounter Care Teams Cop Winder Relationship Specialty Start [place] [address] [place] [address] PCP - General 03/05/23 Carlos Joyner MD [address] [place] [address] 702745 Urology 12/09/19 Jadon Murray MD [facility] 2530 [facility] 550 [place] [address] Referring Physician Pediatric Surgery 12/09/19 Maru Villagomez, OTILIO Registered Nurse 12/10/19 Ang Slade MD [address] [place] [address] 943875 Urology 04/24/20 Carlos Joyner MD [address] [place] [address] 272185 Assigned Surgical Provider 12/24/20 Ang Slade MD [address] [place] [address] 394 [place], [place] 036515 Urology 12/18/22 Lakshmi Wilhelm PA-C [address] [place] [address] 78958 Physician Lot Worker Urology 02/03/23 [place] [address] [place] [address] Assigned PCP 02/06/23 Alissa Perez PA-C [address] [place] [address] 32534 Physician Lot Worker Surgery 09/04/23 Lakshmi Wilhelm PA-C [address] [place] [address] 74493 Physician Lot Worker Urology 09/16/23 Aidee Valero PA-C [address] [place] [address] 962705 Assigned Musculoskeletal Provider 04/17/24 Tanisha Marlow 4120 [facility] [address] 03/30/24 documented as of this encounter
--- OUTSIDE RECORDS SUMMARY | 2024-07-18 22:46 | XMS_ITS | Encounter Summary ---
Author Organization [place] Address [address] [place] [address] Care Team Providers Care Director Employee Safety And Health Name Role Phone Carlos Joyner MD Unavailable [phone] Jadon Murray MD Unavailable +[phone] Maru Villagomez RN Unavailable Unavailable Ignacia Duran MD Primary Care Provider Ang Slade MD Unavailable +[phone] Carlos Joyner MD Unavailable +[phone] Annalise Orta PA-C Unavailable +[phone] Ang Slade MD Unavailable [phone] Lakshmi Wilhelm PA-C Unavailable [phone] Heladio Willoughby MD Primary Care Provider [phone] Heladio Willoughby MD Unavailable Alissa Perez PA-C Unavailable [phone] Lakshmi Wilhelm PA-C Unavailable [phone] Aidee Valero PA-C Unavailable [phone] Encounter Details Date Type Department Care Team (Late st Contact Info) Description 07/31/2021 [facility] Preoperative Assessment Center [address] 5th [place] [address] Makenzie Drummond, RN Social History [...] st Contact Info) Description 07/21/2024 4:00 PM FIELDWORK COORDINATOR Office Visit [facility] [address] [place] [phone] [place] [address] [place], [place] [phone] 09/07/2024 8:30 AM CDT Virtual Visit [facility] Urology Clinic [address] [place] [phone] Carlos Joyner MD [address] [place] [address] 558455 09/20/2024 11:00 AM CDT Office Visit [facility] Sleep Center [address] [phone] Sugey Mccoy, TIPPLE MECHANIC [address] 583724 documented as of this encounter Visit Diagnoses Not on filedocumented in this encounter Additional Health Concerns Infection Onset Date Last Indicated Resolved Time MRSA Comment:Added from external infection. Pt has had Staph infections but never MRSA from Care everywhere chart review. Removing MRSA 02.06.23 06/17/2019 02/06/2023 9:41 AM C DT documented as of this encounter Care Teams Director Employee Safety And Health Relationship Specialty Start Date End Date Ignacia Duran MD PCP - General Pediatrics 01/20/20 03/04/23 [place] [address] [place] [address] PCP - General 03/05/23 Carlos Joyner MD [address] [place] [address] Urology 12/09/19 Jadon Murray MD [facility] [address] [address] Referring Physician Pediatric Surgery 12/09/19 Maru Villagomez, RN Registered Nurse 12/10/19 Ang Slade MD [address] [place] [address] 684895 Urology 04/24/20 Carlos Joyner MD [address] [place] [address] 696705 Assigned Surgical Provider 12/24/20 Annalise Orta PA-C 5200 [place] [address] Assigned Cancer Care Provider 05/13/21 11/01/22 Ang Slade MD [address] 174405 Urology 12/18/22 Lakshmi Wilhelm PA-C [address] [place] [address] 17026 Physician Spinning Frame Tender Urology 02/03/23 [place] [address] [place] [address] Assigned PCP 02/06/23 Alissa Perez PA-C [address] [place] [address] Physician Spinning Frame Tender Surgery 09/04/23 Lakshmi Wilhelm PA-C [address] [place] [address] Physician Spinning Frame Tender Urology 09/16/23 Aidee Valero PA-C [address] [place] [address] 29387 Assigned Musculoskeletal Provider 04/17/24 Tanisha Marlow 4120 [facility] [address] 03/30/24 documented as of this encounter
--- OUTSIDE RECORDS SUMMARY | 2024-07-18 22:46 | XMS_ITS | Encounter Summary ---
Author Organization [place] Address [address] [place] [address] Care Team Providers Care Parking Ramp Attendant Name Role Phone Carlos Joyner MD Unavailable [phone] Jadon Murray MD Unavailable +[phone] Maru Villagomez RN Unavailable Unavailable Ang Slade MD Unavailable +[phone] Carlos Joyner MD Unavailable +[phone] Ang Slade MD Unavailable +[phone] Lakshmi Wilhelm-C Unavailable +[phone] Heladio Willoughby MD Primary Care Provider [phone] Heladio Willoughby MD Unavailable Alissa Perez PA-C Unavailable [phone] Lakshmi Wilhelm-C Unavailable [phone] Aidee Valero PA-C Unavailable +[phone] Encounter Details Date Type Department Care Team (Late st Contact Info) Description 07/01/2023 [facility] Medical Advice [facility] [address] [place] [address] Joao Arceo MA Social History Tobacco [...] st Contact Info) Description 07/21/2024 4:00 PM DRY YARD WORKER Office Visit [facility] [address] [place] [address] [place] [address] [place], [place] [address]3954[address] 09/07/2024 8:30 AM CDT Virtual Visit [facility] Urology Clinic [address] [address] Carlos Joyner MD [address] [place] [address] 455625 09/20/2024 11:00 AM CDT Office Visit [facility] [address] [place] [address] Sugey Mccoy, INTEGRATION SOLUTION ARCHITECT CD MIXER [address] [place] [address] [address] [place] [address] documented as of this encounter Visit Diagnoses Not on filedocumented in this encounter Care Teams Parking Ramp Attendant Relationship Specialty Start [place] [address] [place] [address] PCP - General 03/05/23 Carlos Joyner MD [address] [place] [address] Urology 12/09/19 Jadon Murray MD [facility] 2530 [facility] [address] [place] [address] Referring Physician Pediatric Surgery 12/09/19 Maru Villagomez, OTILIO Registered Nurse 12/10/19 Ang Slade MD [address] [address] Urology 04/24/20 Carlos oJyner MD [address] [place] [address] Assigned Surgical Provider 12/24/20 Ang Slade MD [address] [address] Urology 12/18/22 Lakshmi Wilhelm PA-C [address] [place] [address] 672385 Physician Engineering Associate Urology 02/03/23 [place] [address] [place] [address] Assigned PCP 02/06/23 Alissa Perez PA-C [address] [place] [address] 683035 Physician Engineering Associate Surgery 09/04/23 Lakshmi Wilhelm PA-C [address] [place] [address] 100815 Physician Engineering Associate Urology 09/16/23 Aidee Valero PA-C [address] [place] [address] 232455 Assigned Musculoskeletal Provider 04/17/24 Tanisha Marlow 4120 [facility] [address] 03/30/24 documented as of this encounter
--- OUTSIDE RECORDS SUMMARY | 2024-07-18 22:46 | XMS_ITS | Encounter Summary ---
Author Organization [place] Address [address] [place] [address] Care Team Providers Care Automation Qa Tester Name Role Phone Carlos Joyner MD Unavailable [phone] Jadon Murray MD Unavailable + [phone] Maru Villagomez RN Unavailable Unavailable Ignacia Duran MD Primary Care Provider [phone] Ang Slade MD Unavailable +[phone] Carlos Joyner MD Unavailable +[phone] Ang Slade MD Unavailable +[phone] Lakshmi Wilhelm-C Unavailable +[phone] Heladio Willoughby MD Primary Care Provider [phone] Heladio Willoughby MD Unavailable Alissa Perez PA-C Unavailable [phone] Lakshmi Wilhelm-C Unavailable [phone] Aidee Valero PA-C Unavailable +[phone] Encounter Details Date Type Department Care Team (Late st Contact Info) Description 01/07/2023 [facility] [address] [place] [address] Analisa Palacio, OTILIO Social History [...] st Contact Info) Description 07/21/2024 4:00 PM SPORTS FITNESS AND WELLNESS DIRECTOR Office Visit [facility] [address] [place] [address] [place] [address] [place] [address] 09/07/2024 8:30 AM CDT Virtual Visit [facility] Urology Clinic [address] [phone] Carlos Joyner MD [address] [place] [address] [id number] 09/20/2024 11:00 AM CDT Office Visit [facility] [address] [phone] Sugey Mccoy, DELIVERY STOCK CLERK [address] 200114 documented as of this encounter Visit Diagnoses Not on filedocumented in this encounter Additional Health Concerns Infection Onset Date Last Indicated Resolved Time MRSA Comment:Added from external infection. Pt has had Staph infections but never MRSA from Care everywhere chart review. Removing MRSA 9.14.23 06/17/2019 02/06/2023 9:41 AM C DT documented as of this encounter Care Teams Automation Qa Tester Relationship Specialty Start Date End Date Ignacia Duran MD PCP - General Pediatrics 01/20/20 03/04/23 [place] [address] [place] [address] PCP - General 03/05/23 Carlos Joyner MD [address] [place] [address] Urology 12/09/19 Jadon Murray MD [facility] [address] [address] Referring Physician Pediatric Surgery 12/09/19 Maru Villagomez, OTILIO Registered Nurse 12/10/19 Ang Slade MD [address] [place] [address] Urology 04/24/20 Carlos Joyner MD [address] [place] [address] 268[address] Assigned Surgical Provider 12/24/20 Ang Slade MD [address] [place] [address] Urology 12/18/22 Lakshmi Wilhelm PA-C [address] [place] [address] 641985 Physician Automotive Mechanical Engineer Urology 02/03/23 [place] [address] [place] [address] Assigned PCP 02/06/23 Alissa Perez PA-C [address] [place] [address] 537955 Physician Automotive Mechanical Engineer Surgery 09/04/23 Lakshmi Wilhelm PA-C [address] [place] [address] 795525 Physician Automotive Mechanical Engineer Urology 09/16/23 Aidee Valero PA-C [address] [place] [address] 707955 Assigned Musculoskeletal Provider 04/17/24 Tanisha Marlow 4120 [facility] [address] 03/30/24 documented as of this encounter
--- OUTSIDE RECORDS SUMMARY | 2024-07-18 22:46 | XMS_ITS | Encounter Summary ---
Author Organization [facility] Address [address] [place] [address] Care Team Providers Care Cryptologic Technician Name Role Phone Carlos Joyner MD Unavailable [phone] Jadon Murray MD Unavailable [phone] Maru Villagomez RN Unavailable Unavailable Ignacia Duran MD Primary Care Provider Ang Slade MD Unavailable +[phone] Carlos Joyner MD Unavailable +[phone] Annalise Orta PA-C Unavailable +[phone] Ang Slade MD Unavailable [phone] Lakshmi Wilhelm-C Unavailable [phone] Heladio Willoughby MD Primary Care Provider Heladio Willoughby MD Unavailable Alissa Perez PA-C Unavailable [phone] Lakshmi Wilhelm-C Unavailable Aidee Valero PA-C Unavailable +[phone] Reason for Visit * Reason Onset Date Comments Call Back 06/27/2021 Bladder infectio n Encounter Details Date Type Department Care Team (Late st Contact Info) Description 06/27/2021 Telephone [facility] Urology Clinic [address] 4th [place] [address] Carlos Joyner MD [address] [place] [address] Call Back (Bladder infection) Social History [...] COVID-19? No / Unsure 06/19/2021 11:16 AM MACHINE BILLER documented as of this encounter Miscellaneous Notes * Telephone Encounter - Karen Sheth - 06/27/2021 12:22 PM CST M [facility] Call Center Phone Message May a [...] Center ([facility]): uro Travel Screening: Not Applicable INE BILLER documented in this encounter Plan of Treatment Upcoming Encounters Date Type Department Care Team (Late st Contact Info) Description 07/21/2024 4:00 PM MACHINE BILLER Office Visit [facility] [address] [place] [phone] [place] [address] [place], [place] 2279468 09/07/2024 8:30 AM CDT Virtual Visit [facility] Urology Clinic [address] 4th [place] [phone] Carlos Joyner MD [address] [place] [address] 876845 09/20/2024 11:00 AM CDT Office Visit [facility] [address] [facility] [place] [address] Sugey Mccoy, BUSINESS OPERATIONS CONSULTANT PLATE CLEANER [address] [place] [address] [address] [place], [place] 018924 documented as of this encounter Visit Diagnoses Not on filedocumented in this encounter Additional Health Concerns Infection Onset Date Last Indicated Resolved Time MRSA Comment:Added from external infection. Pt has had Staph infections but never MRSA from Care everywhere chart review. Removing MRSA 02.06.23 06/17/2019 02/06/2023 9:41 AM C DT documented as of this encounter Care Teams Cryptologic Technician Relationship Specialty Start Date End Date Ignacia Duran MD PCP - General Pediatrics 01/20/20 03/04/23 [place] [address] [place] [address] PCP - General 03/05/23 Carlos Joyner MD 9 [place] [address] Urology 12/09/19 Jadon Murray MD [facility] 2530 [facility] 550 [place] [address] Referring Physician Pediatric Surgery 12/09/19 Maru Villagomez, OTILIO Registered Nurse 12/10/19 Ang Slade MD [address] [place] [address] 394 [place] [address] Urology 04/24/20 Carlos Joyner MD [address] [place] [address] Assigned Surgical Provider 12/24/20 Annalise Orta PA-C 5200 [place] [address] Assigned Cancer Care Provider 05/13/21 11/01/22 Ang Slade MD [address] [place] [address] Urology 12/18/22 Lakshmi Wilhelm PA-C [address] [place] [address]37 Physician Light Adjuster Urology 02/03/23 [place] [address] [place] [address] Assigned PCP 02/06/23 Alissa Perez PA-C [address] [place] [address] Physician Light Adjuster Surgery 09/04/23 Lakshmi Wilhelm PA-C [address] [place] [address] Physician Light Adjuster Urology 09/16/23 Aidee Valero PA-C [address] [place] [address] 256425 Assigned Musculoskeletal Provider 04/17/24 Tanisha Marlow 4120 [facility] [address] 03/30/24 documented as of this encounter
--- OUTSIDE RECORDS SUMMARY | 2024-07-18 22:46 | XMS_ITS | Encounter Summary ---
Author Organization [facility] Address [address] [place] [address] Care Team Providers Care Hardness Tester Name Role Phone Carlos Joyner MD Unavailable [phone] Jadon Murray MD Unavailable [phone] Maru Villagomez RN Unavailable Unavailable Ang Slade MD Unavailable +[phone] Carlos Joyner MD Unavailable +[phone] Ang Slade MD Unavailable [phone] Lakshmi Wilhelm PA-C Unavailable [phone] Heladio Willoughby MD Primary Care Provider [phone] Heladio Willoughby MD Unavailable Alissa Perez PA-C Unavailable [phone] Lakshmi Wilhelm PA-C Unavailable [phone] Aidee Valero PA-C Unavailable +[phone] Encounter Details Date Type Department Care Team (Late st Contact Info) Description 06/25/2023 [facility] Urology Clinic [address] [place] [address] Carlos Joyner MD [address] [place] [address] Social History Tobacco Use Types Packs/Day [...] st Contact Info) Description 07/21/2024 4:00 PM CULTURIST Office Visit [facility] [address] [place] [address] [place] [address] [place] [address] 09/07/2024 8:30 AM CDT Virtual Visit [facility] Urology Clinic [address] [place] [address] Carlos Joyner MD [address] [place] [address] 09/20/2024 11:00 AM CDT Office Visit [facility] 60 [address] [phone] Sugey Mccoy, COOK STATION OBSTETRICS SCRUB NURSE [address] [place], [place] 1424[address] documented as of this encounter Visit Diagnoses Not on filedocumented in this encounter Care Teams Hardness Tester Relationship Specialty Start [place] [address] [place] [address] PCP - General 03/05/23 Carlos Joyner MD [address] [place] [address] 898645 Urology 12/09/19 Jadon Murray MD [facility] 2530 [facility] [address] [place], [place] 20[address] Referring Physician Pediatric Surgery 12/09/19 Maru Villagomez, RN Registered Nurse 12/10/19 Ang Slade MD [address] [place] [address] 394 [place] [address] Urology 04/24/20 Carlos Joyner MD [address] [place] [address] 844585 Assigned Surgical Provider 12/24/20 Ang Slade MD [address] [place] [address] 394 [place] [address] Urology 12/18/22 Lakshmi Wilhelm PA-C [address] [place] [address] 021505 Physician Cattle Broker Urology 02/03/23 [place] [address] [facility] [place] [address] Assigned PCP 02/06/23 Alissa Perez PA-C [address] [place] [address] 551275 Physician Cattle Broker Surgery 09/04/23 Lakshmi Wilhelm PA-C [address] [place] [address] 519595 Physician Cattle Broker Urology 09/16/23 Aidee Valero PA-C [address] [place] [address] 764365 Assigned Musculoskeletal Provider 04/17/24 Tanisha Marlow 4120 [facility] [address] 03/30/24 documented as of this encounter
--- OUTSIDE RECORDS SUMMARY | 2024-07-18 22:46 | XMS_ITS | Encounter Summary ---
Author Organization [place] Address [address] [place] [address] Care Team Providers Care Automatic Edger Name Role Phone Carlos Joyner MD Unavailable [phone] Jadon Murray MD Unavailable + [phone] Maru Villagomez RN Unavailable Unavailable Ignacia Duran MD Primary Care Provider [phone] Ang Slade MD Unavailable [phone] Carlos Joyner MD Unavailable [phone] Ang Slade MD Unavailable [phone] Lakshmi Wilhelm-C Unavailable [phone] Heladio Willoughby MD Primary Care Provider [phone] Heladio Willoughby MD Unavailable Alissa Perez PA-C Unavailable [phone] Lakshmi Wilhelm-C Unavailable [phone] Aidee Valero PA-C Unavailable +[phone] Encounter Details Date Type Department Care Team (Late st Contact Info) Description 12/30/2022 [facility] Urology Clinic [address] [place] [address] Analisa Palacio, OTILIO Social History [...] st Contact Info) Description 07/21/2024 4:00 PM RECEPTION Office Visit [facility] [address] [place] [address] [place] [address] [place] [address] 09/07/2024 8:30 AM CDT Virtual Visit [facility] Urology Clinic [address] [phone] Carlos Joyner MD [address] [place] [address] 21714455 09/20/2024 11:00 AM CDT Office Visit [facility] Sleep Center [address] [phone] Sugey Mccoy, PRODUCTION CHECKER [address] 947334 documented as of this encounter Visit Diagnoses Not on filedocumented in this encounter Additional Health Concerns Infection Onset Date Last Indicated Resolved Time MRSA Comment:Added from external infection. Pt has had Staph infections but never MRSA from Care everywhere chart review. Removing MRSA 9.14.23 06/17/2019 02/06/2023 9:41 AM C DT documented as of this encounter Care Teams Automatic Edger Relationship Specialty Start Date End Date Ignacia Duran MD PCP - General Pediatrics 01/20/20 03/04/23 [place] [address] [place] [address] PCP - General 03/05/23 Carlos Joyner MD [address] [place] [address] Urology 12/09/19 Jadon Murray MD [facility] [address] [address] Referring Physician Pediatric Surgery 12/09/19 Maru Villagomez, OTILIO Registered Nurse 12/10/19 Ang Slade MD [address] [place] [address] Urology 04/24/20 Carlos Joyner MD [address] [place] [address] Assigned Surgical Provider 12/24/20 Ang Slade MD [address] [place] [address] Urology 12/18/22 Lakshmi Wilhelm PA-C [address] [place] [address]/Medical Interpreter Urology 02/03/23 [place] [address] [place] [address] Assigned PCP 02/06/23 Alissa Perez PA-C [address] [place] [address]/Medical Interpreter Surgery 09/04/23 Lakshmi Wilhelm PA-C [address] [place] [address]/Medical Interpreter Urology 09/16/23 Aidee Valero PA-C [address] [place] [address] 330175 Assigned Musculoskeletal Provider 04/17/24 Tanisha Marlow 4120 [facility] [address] 03/30/24 documented as of this encounter
--- OUTSIDE RECORDS SUMMARY | 2024-07-18 22:46 | XMS_ITS | Encounter Summary ---
Author Organization [place] Address [address] [place] [address] Care Team Providers Care Rate Inserter Name Role Phone Carlos Joyner MD Unavailable +[phone] Jadon Murray MD Unavailable +[phone] Maru Villagomez RN Unavailable Unavailable Ignacia Duran MD Primary Care Provider [phone] Carlos Joyner MD Unavailable +[phone] Ang Slade MD Unavailable +[phone] Ang Slade MD Unavailable +[phone] Carlos Joyner MD Unavailable +[phone] Annalise Otra PA-C Unavailable +[phone] Ang Slade MD Unavailable +[phone] Lakshmi Wilhelm-C Unavailable [phone] Heladio Willoughby MD Primary Care Provider [phone] Heladio Willoughby MD Unavailable Alissa Perez PA-C Unavailable [phone] Lakshmi Wilhelm-C Unavailable [phone] Aidee Valero PA-C Unavailable [phone] Reason for Visit * Reason Onset Date Comments Call Back 08/01/2020 Miscommunication between urinary results Encounter Details Date Type Department Care Team (Late st Contact Info) Description 08/01/2020 Telephone [facility] Urology Clinic [address] [place] [address] Ang Slade MD 420 [facility] 394 [place] [address] Call Back (Miscommunication between urinary results) Social [...] COVID-19? No / Unsure 08/02/2020 8:37 AM FEEDER TENDER documented as of this encounter Miscellaneous Notes * Telephone Encounter - Diego Sams - 08/01/2020 11:21 AM CST [facility] Phone Message May a detailed message be left on voicemail: yes Reason for Call: Other: Cristine with [facility] calling because pt's primary, , would like to speak with or a nurse regarding pt's urinary results. Reports that there is some miscommunication that she wants to clarify. Please call back. Action Taken: Message routed to: [facility] uro Travel Screening: Not Applicable ER TENDER documented in this encounter Plan of Treatment Upcoming Encounters Date Type Department Care Team (Late st Contact Info) Description 07/21/2024 4:00 PM FEEDER TENDER Office Visit [facility] [address] [place] [address] [place] [address] [place] [address] 09/07/2024 8:30 AM CDT Virtual Visit [facility] Urology Clinic [place] [address] [facility] 4th [place] [address] Carlos Joyner MD [address] [place] [address] 434625 09/20/2024 11:00 AM CDT Office Visit [facility] [address] [place] [address] Sugey Mccoy, WARP KNITTING MACHINE OPERATOR [facility] [address] [place] [address] [address] [place], [place] 497104 documented as of this encounter Visit Diagnoses Not on filedocumented in this encounter Additional Health Concerns Infection Onset Date Last Indicated Resolved Time MRSA Comment:Added from external infection. Pt has had Staph infections but never MRSA from Care everywhere chart review. Removing MRSA 02.06.23 06/17/2019 02/06/2023 9:41 AM C DT documented as of this encounter Care Teams Rate Inserter Relationship Specialty Start Date End Date Ignacia Duran MD PCP - General Pediatrics 01/20/20 03/04/23 [place] [address] [place] [address] PCP - General 03/05/23 Carlos Joyner MD [address] [place] [address] Urology 12/09/19 Jadon Murray MD [facility] [address] [facility] 550 [place] [address] Referring Physician Pediatric Surgery 12/09/19 Maru Villagomez, OTILIO Registered Nurse 12/10/19 Carlos Joyner MD 909 [place] [address] Assigned Surgical Provider 03/17/20 Ang Slade MD 420 [facility] 394 [place] [address] Urology 04/24/20 Ang Slade MD 420 [facility] 394 [place], [place] 619995 Assigned Surgical Provider 08/13/20 Carlos Joyner MD [address] [place] [address] 970115 Assigned Surgical Provider 12/24/20 Annalise Orta PA-C 5200 [place] [address] Assigned Cancer Care Provider 05/13/21 11/01/22 Ang Slade MD [address] 264045 Urology 12/18/22 Lakshmi Wilhelm PA-C [address] [place] [address] 224945 Physician Dowel Sticker Operator Urology 02/03/23 [place] [address] [place] [address] Assigned PCP 02/06/23 Alissa Perez PA-C [address] [place] [address] Physician Dowel Sticker Operator Surgery 09/04/23 Lakshmi Wilhelm PA-C 9 [place] [address] Physician Dowel Sticker Operator Urology 09/16/23 Aidee Valero PA-C [address] [place] [address] Assigned Musculoskeletal Provider 04/17/24 Tanisha Marlow 4120 [facility] [address] 03/30/24 documented as of this encounter
--- OUTSIDE RECORDS SUMMARY | 2024-07-18 22:46 | XMS_ITS | Encounter Summary ---
Author Organization [facility] Address [address] [place] [address]67 Care Team Providers Care Air Drier Name Role Phone Carlos Joyner MD Unavailable [phone] Jadon Murray MD Unavailable [phone] Maru Villagomez RN Unavailable Unavailable Ignacia Duran MD Primary Care Provider [phone] Ang Slade MD Unavailable [phone] Carlos Joyner MD Unavailable [phone] Annalise Orta PA-C Unavailable [phone] Ang Slade MD Unavailable [phone] Lakshmi Wilhelm-C Unavailable [phone] Heladio Willoughby MD Primary Care Provider [phone] Heladio Willoughby MD Unavailable Alissa Perez PA-C Unavailable [phone] Lakshmi Wilhelm PA-C Unavailable [phone] Aidee Valero PA-C Unavailable [phone] Encounter Details Date Type Department Care Team (Late st Contact Info) Description 06/19/2021 [facility] [address] [address] Jenna Mcfadden, RN Social History [...] COVID-19? No / Unsure 06/19/2021 11:16 AM METAL TURNER documented as of this encounter Plan of Treatment Upcoming Encounters Date Type Department Care Team (Late st Contact Info) Description 07/21/2024 4:00 PM METAL TURNER Office Visit [facility] [address] [place] [phone] [place] [address] [place], [place] [phone] 09/07/2024 8:30 AM CDT Virtual Visit [facility] [address] [place] [phone] Carlos Joyner MD [address] [place] [address] [id number] 09/20/2024 11:00 AM CDT Office Visit [facility] [address] [phone] Sugey Mccoy, RECEPTION INTERVIEWER [address] [id number] documented as of this encounter Visit Diagnoses Not on filedocumented in this encounter Additional Health Concerns Infection Onset Date Last Indicated Resolved Time MRSA Comment:Added from external infection. Pt has had Staph infections but never MRSA from Care everywhere chart review. Removing MRSA 9.14.23 06/17/2019 02/06/2023 9:41 AM C DT documented as of this encounter Care Teams Air Drier Relationship Specialty Start Date End Date Ignacia Duran MD PCP - General Pediatrics 01/20/20 03/04/23 [place] [address] [place] [address] PCP - General 03/05/23 Carlos Joyner MD [address] [place] [address] Urology 12/09/19 Jadon Murray MD [facility] [address] [address] Referring Physician Pediatric Surgery 12/09/19 Maru Villagomez, RN Registered Nurse 12/10/19 Ang Slade MD [address] [place] [address] Urology 04/24/20 Carlos Joyner MD [address] [place] [address] Assigned Surgical Provider 12/24/20 Annalise Orta PA-C 5200 [place] [address] Assigned Cancer Care Provider 05/13/21 11/01/22 Ang Slade MD [address] [place] [address] 690455 Urology 12/18/22 Lakshmi Wilhelm PA-C [address] [place] [address] 087595 Physician Gang Head Saw Operator Urology 02/03/23 [place] [address] [place] [address] Assigned PCP 02/06/23 Alissa Perez PA-C [address] [place] [address] 595665 Physician Gang Head Saw Operator Surgery 09/04/23 Lakshmi Wilhelm PA-C [address] [place] [address] 775555 Physician Gang Head Saw Operator Urology 09/16/23 Aidee Valero PA-C 909 [place], [place] 352235 Assigned Musculoskeletal Provider 04/17/24 Tanisha Marlow 4120 [facility] [address] 03/30/24 documented as of this encounter
--- OUTSIDE RECORDS SUMMARY | 2024-07-18 22:46 | XMS_ITS | Encounter Summary ---
Author Organization [facility] Address [address] [place] [address] Care Team Providers Care Pearl Fisherman Name Role Phone Carlos Joyner MD Unavailable [phone] Jadon Murray MD Unavailable [phone] Maru Villagomez RN Unavailable Unavailable Ang Slade MD Unavailable [phone] Carlos Joyner MD Unavailable [phone] Ang Slade MD Unavailable [phone] Lakshmi Wilhelm-C Unavailable [phone] Heladio Willoughby MD Primary Care Provider [phone] Heladio Willoughby MD Unavailable Alissa Perez PA-C Unavailable [phone] Lakshmi Wilhelm-C Unavailable [phone] Aiede Valero PA-C Unavailable [phone] Encounter Details Date Type Department Care Team (Late st Contact Info) Description 09/08/2023 [facility] [address] [address] Bhavna Ferris Social History Tobacco [...] st Contact Info) Description 07/21/2024 4:00 PM BRIQUETTING MACHINE OPERATOR Office Visit [facility] [address] [place] [address] [place] [address] [place], [place] [phone] 09/07/2024 8:30 AM CDT Virtual Visit [facility] [address] [address] Carlos Joyner MD [address] [place] [address] [phone] 09/20/2024 11:00 AM CDT Office Visit [facility] [address] [place] [address] Sugey Mccoy, MEAT SPECIALIST DRUM PRINTER [address] [place] [address] [address] [place] [address] documented as of this encounter Visit Diagnoses Not on filedocumented in this encounter Care Teams Pearl Fisherman Relationship Specialty Start [place] [address] [place] [address] PCP - General 03/05/23 Carlos Joyner MD [address] [place] [address] Urology 12/09/19 Jadon Murray MD [facility] 2530 [facility] [address] [place] [address] Referring Physician Pediatric Surgery 12/09/19 Maru Villagomez, OTILIO Registered Nurse 12/10/19 Ang Slade MD [address] [address] Urology 04/24/20 Carlos Joyner MD [address] [place] [address] Assigned Surgical Provider 12/24/20 Ang Slade MD [address] [address] Urology 12/18/22 Lakshmi Wilhelm PA-C [address] [place] [address] 645165 Physician Cashier Wrapper Urology 02/03/23 [place] [address] [place] [address] Assigned PCP 02/06/23 Alissa Perez PA-C [address] [place] [address] 150365 Physician Cashier Wrapper Surgery 09/04/23 Lakshmi Wilhelm PA-C [address] [place] [address] [phone] Physician Cashier Wrapper Urology 09/16/23 Aidee Valero PA-C [address] [place] [address] [phone] Assigned Musculoskeletal Provider 04/17/24 Tanisha Marlow 4120 [facility] [address] 03/30/24 documented as of this encounter
--- OUTSIDE RECORDS SUMMARY | 2024-07-18 22:47 | XMS_ITS | Clinical Summary ---
Author Organization [facility] Address [address] [place] [address] Care Team Providers Care Tank Car Reconditioner Name Role Phone Carlos Joyner MD Unavailable [phone] Jadon Murray MD Unavailable [phone] Maru Villagomez RN Unavailable Unavailable Ang Slade MD Unavailable Carlos Joyner MD Unavailable [phone] Ang Slade MD Unavailable Lakshmi Wilhelm-C Unavailable Heladio Willoughby MD Primary Care Provider [phone] Heladio Willoughby MD Unavailable Alissa Perez PA-C Unavailable [phone] Lakshmi Wilhelm-C Unavailable Aidee Valero PA-C Unavailable [phone] Allergies Active Allergy Reactions Criticality Noted Date [...] 1 Refill(s), Maintenance, other Active Wound Dressings ([facility]) PADSIndications:P ressure ulcer acquired in [facility] Externally apply 1 each topically daily [...] Acute cystitis 04/04/2019 Ulcer, surgical 06/07/2011 S/P RESISTANCE WELDING MACHINE OPERATOR shunt 04/29/2011 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 (03/14/2020): Vertebra Absence Congenital Kyphosis (acquired) (postural) 08/04/2008 Overview (03/14/2020): Kyphosis Neurogenic bladder 07/22/2003 Overview (03/05/2023): LW Onset: 43Wbm70 ; Paralysis Bladder Neurogenic bowel 07/22/2003 Overview (03/14/2020): LW Onset: 55Php74 Paraplegia 07/22/2003 Overview (04/18/2023): 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 07/22/2003 Overview (03/14/2020): LW Onset: 43Nrc30 ; Short Stature 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/22/2003 Overview (04/16/2023): LW Modifier: shunted LW Onset: 22Rkg25 ; Spina Bifida Lumbar w Hydrocephalus Resolved Problems Problem Noted Date Diagnosed Date Resolved Date Acute kidney failure, unspecified 02/10/2020 03/05/2023 Encounters Date Type Department Care Team Description 07/16/2024 Travel 07/09/2024 MyC Medical Advice [facility] [address] [phone] Hattie Wing RN 07/05/2024 Refill [facility] [address] [phone] Carlos Joyner MD Medication Refill 06/24/2024 Orders Only [facility] [address] [phone] Carlos Joyner MD Recurrent UTI (Primary Dx) 06/24/2024 Telephone [facility] [address] [phone] Carlos Joyner MD Call Back (Previous message from [employer]) 06/23/2024 MyC Medical Advice [facility] [address] [phone] Carlos Joyner MD 06/22/2024 Telephone [facility] [address] [place] [address] Heladio Willoughby MD Orders 06/15/2024 [facility] [address] [place] [phone] Sarika Calhoun MA 06/11/2024 Travel 04/28/2024 Travel 04/26/2024 Orders Only [facility] [address] [phone] Carlos Joyner MD Recurrent UTI (Primary Dx) 04/26/2024 MyC Medical Advice [facility] [address] [phone] Rosita Velasco RN 04/21/2024 11:45 AM FORMING AND ASSEMBLING SUPERVISOR Lab [facility] [address] [place] [phone] Recurrent UTI 04/21/2024 Travel 04/21/2024 Orders Only [facility] [address] [phone] Carlos Joyner MD Recurrent UTI (Primary Dx) 04/21/2024 Telephone [facility] [address] [phone] Carlos Joyner MD Call Back (Pt still having UTI Symptoms. They are wanting to see about getting a new antibiotic. Please call Nurse commercial construction project manager at [phone]. Please call Yamini. As they would like to get something done prior to the holiday. Thanks ) 04/21/2024 Telephone [facility] [address] [place] [address] Heladio Willoughby MD from Last 3 Months Immunizations Name Administration Dates Next Due DTAP (<7y) 01/18/2008,05/06/2005 DTaP, Unspecified 01/16/2015 DTaP/HepB/IPV 05/27/2003,03/21/2003,2002 Flu, Unspecified 02/26/2016,02/21/2009, 4 L6y6-80 Novel Flu 03/18/2009 K2a1-16 Novel Flu P-free 03/30/2004,05/27/2003 HEPATITIS A (PEDS [...] than three times a week 07/16/2024 Attends Scientologist Services Not on file 07/16 Active Member of Clubs or Organizations Not on f ile 07/16/2024 Attends Club or Organization Meetings Not on antelmo e 07/16/2024 Marital Status Not on file 07/16/2024 PHQ-2 Answer Date Recorded PHQ-2 Score 0 06/24/2023 [facility] - Occupational [...] building, in an overnight intermediate, or couch-surfing.) No 07/16/2024 Are you worried [...] 61.2 kg (135 lb) 03/30/2024 2:01 PM FORMING AND ASSEMBLING SUPERVISOR Height 147.3 cm (4' 10) 03/30/2024 2:01 PM FORMING AND ASSEMBLING SUPERVISOR Body Mass Index 28.22 03/30/2024 2:01 PM FORMING AND ASSEMBLING SUPERVISOR Plan of Treatment Upcoming Encounters Date Type Department Care Team (Late st Contact Info) Description 07/21/2024 4:00 PM FORMING AND ASSEMBLING SUPERVISOR Office Visit [facility] [address] [place] [phone] [place] [address] [place] [address] 09/07/2024 8:30 AM CDT Virtual Visit [facility] [address] [place] [address] Carlos Joyner MD [address] [place] [address] 338855 09/20/2024 11:00 AM CDT Office Visit [facility] [address] [address] Sugey Mccoy APRN [address] [address] Health Maintenance Due Date Last [...] history exists Medical Devices Implanted Type Area Nursing Informatics Analyst Device Identifier Shelf Expiration Date Model / Serial / Lot Stent Ureteral Percuflex Plus [id number] - [id number] Implanted:Qty: 1 on 11/12/2021 by Carlos Joyner MD at [facility] Stent Right: Abdomen [place] [id number] 12/26/2022 [id number] / [id number] Ureteral Catheter 5 [place] [employer] Implanted:Qty: 1 on 03/31/2023 by Elizabeth Jacobsen MD at [facility] Right: Ureter 02/02/2026 [id number] / / [id number] Description:5 icelandic Uretera l catheter used as a stent in right ureter 5 [place] [employer] Open Ended Catheter Implanted:Qty: 1 on 03/31/2023 by Elizabeth Jacobsen MD at [facility] Left: Ureter 02/19/2026 [id number] 10 / / [id number] Explanted Type Area Nursing Informatics Analyst Device Identifier Shelf Expiration Date Model / Serial / Lot Stent Ureteral Percuflex Plus [id number] - [id number] Implanted:Qty: 1 on 05/10/2021 by Carlos Joyner MD at [facility] Explanted:Qty: 1 on 08/09/2021 by Jane Gomez MD at [facility] Stent Right: Urethra [employer] 06/14/2022 [id number] / [id number] Description:Ureter Stent Ureteral Percuflex Plus [id number] - [id number] Implanted:Qty: 1 on 05/10/2021 by Carlos Joyner MD at [facility] Explanted:Qty: 1 on 08/09/2021 by Jane Gomez MD at [facility] Stent Left: Urethra [employer] 07/25/2022 [id number] / [id number] Stent Ureteral Percuflex Plus [id number] - [id number] Implanted:Qty: 1 on 08/09/2021 by Jane Gomez MD at [facility] Explanted:Qty: 1 on 11/12/2021 at [facility] Stent Right: Ureter [employer] 02/29/2024 [id number] / / [id number] Stent Ureteral Percuflex Plus [id number] - [id number] Implanted:Qty: 1 on 08/09/2021 by Jane Gomez MD at [facility] Explanted:Qty: 1 on 11/12/2021 at [facility] Stent Right: Ureter [employer] 02/29/2024 [id number] / / [id number] 5 Fr X 22cm Ureteral Stent Explanted:Qty: 1 on 02/07/2020 by Carlos Joyner MD at [facility] 5 Fr X 22cm Ureteral Stent Explanted:Qty: 1 on 02/07/2020 by Carlos Joyner MD at [facility] COOK Procedures Procedure Name Priority Date/Time Associated Diagnosis Comments URINE CULTURE Routine 06/25/2024 9:14 AM FORMING AND ASSEMBLING SUPERVISOR Recurrent UTI URINE MICROSCOPIC EXAM Routine 06/25/2024 9:14 AM FORMING AND ASSEMBLING SUPERVISOR Recurrent UTI ROUTINE UA WITH MICROSCOPIC Routine 06/25/2024 9:14 AM FORMING AND ASSEMBLING SUPERVISOR Recurrent UTI URINE CULTURE Routine 04/21/2024 10:30 AM FORMING AND ASSEMBLING SUPERVISOR Recurrent UTI URINE MICROSCOPIC EXAM Routine 04/21/2024 10:30 AM FORMING AND ASSEMBLING SUPERVISOR Recurrent UTI ROUTINE UA WITH MICROSCOPIC Routine 04/21/2024 10:30 AM FORMING AND ASSEMBLING SUPERVISOR Recurrent UTI from Last 3 Months Results * (ABNORMAL) UA with Microscopic (06/25/2024 9:14 AM FORMING AND ASSEMBLING SUPERVISOR) Only the most recent of2 resultswithin the time period is included. Color Urine Yellow Colorless, Straw, Light Yellow, Yellow 06/25/2024 9:19 AM FORMING AND ASSEMBLING SUPERVISOR [facility] Appearance Urine Cloudy(A) Clear 06/25/19 9:19 AM FORMING AND ASSEMBLING SUPERVISOR [facility] Glucose Urine Negative Negative mg/dL 06/25/2024 9:19 AM FORMING AND ASSEMBLING SUPERVISOR [facility] Bilirubin Urine Negative Negative 9:19 AM FORMING AND ASSEMBLING SUPERVISOR [facility]ORY Ketones Urine Negative Negative mg/dL 06/25/2024 9:19 AM [facility] Specific [place] Urine 1.020 1.003 - 1.035 06/25/2024 9:19 AM [facility] Blood Urine Small(A) Negative 06/25/2024 9:19 AM [facility] pH Urine 6.0 5.0 - 7.0 06/25/2024 9:19 AM [facility] Protein Albumin Urine Negative Negative mg/dL 06/25/2024 9:19 AM [facility] Urobilinogen Urine 0.2 0.2, 1.0 E.U./dL 06/25/2024 9:19 AM [facility] Nitrite Urine Positive(A) Negative 06/25/2024 9:19 AM [facility] Leukocyte Esterase Urine Small(A) Negative 06/25/2024 9:19 AM [facility] Urine URINE SPECIMEN FROM URINARY CONDUIT / Unknown Non-blood Collection / Unknown 06/25/2024 9:14 AM FORMING AND ASSEMBLING SUPERVISOR 06/25/2024 9:15 AM [facility] Carlos Joyner MD LAB - URINE ORDERABLES Fin al Result LABORATORY [facility] [address] [facility] (no room number, 1st floor of clinic) [place] [address] * (ABNORMAL) Urine Microscopic Exam (06/25/2024 9:14 AM [facility]) Only the most recent of2 resultswithin the time period is included. Bacteria Urine Many(A) None Seen /HPF LINDA 06/25/2024 9:20 AM [facility] RBC Urine 2-5(A) 0-2 /HPF /HPF LINDA 06/25/2024 9:20 AM [facility] WBC Urine 10-25(A) 0-5 /HPF /HPF LINDA 06/25/2024 9:20 AM [facility] Amorphous Crystals Urine Few(A) None Seen /HPF LINDA 06/25/2024 9:20 AM [facility] Urine URINE SPECIMEN FROM URINARY CONDUIT / Unknown Non-blood Collection / Unknown 06/25/2024 9:14 AM FORMING AND ASSEMBLING SUPERVISOR 06/25/2024 9:15 AM FORMING AND ASSEMBLING SUPERVISOR us Carlos Joyner MD LAB - URINE ORDERABLES Fin al Result LABORATORY [facility] [address] [facility] (no room number, 1st floor of clinic) [place] [address], [facility] * (ABNORMAL) Urine Culture (06/25/2024 9:14 AM FORMING AND ASSEMBLING SUPERVISOR) Only the most recent of2 resultswithin the time period is included. Culture >100,000 CFU/mL Staphylococcus epidermidis(A) LINDA 06/28/2024 6:49 AM FORMING AND ASSEMBLING SUPERVISOR [facility] Culture 50,000-100,000 CFU/mL Staphylococcus epidermidis(A) 06/28/2024 6:49 AM FORMING AND ASSEMBLING SUPERVISOR [facility] Urine URINE SPECIMEN OBTAINED VIA INDWELLING URINARY CATHETER / Unknown Non-blood Collection / Unknown 06/25/2024 9:14 AM FORMING AND ASSEMBLING SUPERVISOR 06/25/2024 9:15 AM FORMING AND ASSEMBLING SUPERVISOR Narrative Organism Antibiotic Method Susceptibility Staphylococcus epidermidis [...] LINDA 8 ug/mL: Intermediate Staphylococcus epidermidis Nitrofurantoin LNIDA <=16 ug/mL: Susceptible Staphylococcus epidermidis Trimethoprim/ Sulfamethoxaz [...] [facility] Lab [address] [facility], [address] [place] [address], [facility] from Last 3 Months Insurance [place] [facility] INDIVIDUAL [facility] [place] [facility] INDIVIDUAL [facility] [place]DIV[place]UAL [place] [facility] INDIVIDUAL Advance Directives For more information, please contact: [phone] Documents on File Type Date Recorded Patient Posting Clerk Expl anation Advance Directives and Living Will [...] continue PREVIOUSLY ORDERED code status Care Teams Tank Car Reconditioner Relationship Specialty [place] [address] [place] [address] PCP - General 03/05/23 Carlos Joyner MD [address] [place] [address] Urology 12/09/19 Jadon Murray MD [facility] [address] [facility] [address] [place] [address] Referring Physician Pediatric Surgery 12/09/19 Maru Villagomez, RN Registered Nurse 12/10/19 Ang Slade MD [address] [facility] [address] [place], [place] 674185 Urology 04/24/20 Carlos Joyner MD [address] [place] [address] 338175 Assigned Surgical Provider 12/24/20 Ang Slade MD [address] [facility] [address] [place], [place] 759515 Urology 12/18/22 Lakshmi Wilhelm PA-C [address] [place] [address] 189295 Physician Associate Financial Planner Urology 02/03/23 [place] [address] [place] [address] Assigned PCP 02/06/23 Alissa Perez PA-C [address] [place] [address] 921835 Physician Associate Financial Planner Surgery 09/04/23 Lakshmi Wilhelm PA-C [address] [place] [address] Physician Associate Financial Planner Urology 09/16/23 Aidee Valero PA-C [address]09 [place] [address] Assigned Musculoskeletal Provider 04/17/24 Tanisha Marlow [address] [facility] [address] 03/30/24
--- OUTSIDE RECORDS SUMMARY | 2024-07-18 22:47 | XMS_ITS | Encounter Summary ---
Author Organization [place] Address [address] [place] [address] Care Team Providers Care Radius Corner Machine Operator Name Role Phone Carlos Joyner MD Unavailable [phone] Jadon Murray MD Unavailable [phone] Maru Villagomez RN Unavailable Unavailable Ang Slade MD Unavailable +[phone] Carlos Joyner MD Unavailable [phone] Ang Slade MD Unavailable [phone] Lakshmi Wilhelm-C Unavailable Heladio Willoughby MD Primary Care Provider [phone] Heladio Willoughby MD Unavailable Alissa Perez PA-C Unavailable [phone] Lakshmi Wilhelm-C Unavailable Aidee Valero PA-C Unavailable [phone] Encounter Details Date Type Department Care Team (Late st Contact Info) Description 06/24/2024 [facility] [address] 4th [place] [address] Carlos Joyner MD [address] [place] [address] Recurrent UTI (Primary Dx) Social History [...] Hattie Wing RN, BSN Urology Triage Nurse H COOK documented in this encounter Plan of Treatment Upcoming Encounters Date Type Department Care Team (Late st Contact Info) Description 07/21/2024 4:00 PM RANCH COOK [facility] [address] [place] [address] [place] [address] [place], [place] [phone] 09/07/2024 8:30 AM CDT Virtual Visit [facility] Urology Clinic [address] 4th [place] [phone] Carlos Joyner MD [address] [place] [address] [phone] 09/20/2024 11:00 AM CDT Office Visit [facility] [place] [address] [place] [address] Sugey Mccoy, NESTOR [facility] [address] [place] [address] documented as of this encounter Results * (ABNORMAL) Urine Culture (06/25/2024 9:14 AM RANCH COOK) Pathologist [facility] Culture >100,000 CFU/mL Staphylococcus epidermidis(A) LINDA 06/28/2024 6:49 AM RANCH COOK [facility] Culture 50,000-100,000 CFU/mL Staphylococcus epidermidis(A) 06/28/2024 6:49 AM RANCH COOK [facility] Urine URINE SPECIMEN OBTAINED VIA INDWELLING URINARY CATHETER / Unknown Non-blood Collection / Unknown 06/25/2024 9:14 AM RANCH COOK 06/25/2024 9:15 AM RANCH COOK Narrative Organism Antibiotic Method Susceptibility Staphylococcus epidermidis [...] ORDERA BLES Final Result [facility] Inf. Diseases Diag. Lab [address] [facility], Room [address] [place] [id number] * (ABNORMAL) UA with Microscopic (06/25/2024 9:14 AM RANCH COOK) Color Urine Yellow Colorless, Straw, Light Yellow, Yellow 06/25/2024 9:19 AM RANCH COOK RM LABORATORY Appearance Urine Cloudy(A) Clear 06/25/19 9:19 AM RANCH COOK RM LABORATORY Glucose Urine Negative Negative mg/dL 06/25/2024 9:19 AM RANCH COOK RM LABORATORY Bilirubin Urine Negative Negative 9:19 AM RANCH COOK RM LABORATORY Ketones Urine Negative Negative mg/dL 06/25/2024 9:19 AM RANCH COOK RM LABORATORY Specific [place] Urine 1.020 1.003 - 1.035 06/25/2024 9:19 AM RANCH COOK LABORATORY Blood Urine Small(A) Negative 06/25/2024 9:19 AM [facility] pH Urine 6.0 5.0 - 7.0 06/25/2024 9:19 AM [facility] LABORATORY Protein Albumin Urine Negative Negative mg/dL 06/25/2024 9:19 AM [facility] LABORATORY Urobilinogen Urine 0.2 0.2, 1.0 E.U./dL 06/25/2024 9:19 AM [facility] Nitrite Urine Positive(A) Negative 06/25/2024 9:19 AM [facility] LABORATORY Leukocyte Esterase Urine Small(A) Negative 06/25/2024 9:19 AM [facility] LABOR[facility]ORY Urine URINE SPECIMEN FROM URINARY CONDUIT / Unknown Non-blood Collection / Unknown 06/25/2024 9:14 AM RANCH COOK 06/25/2024 9:15 AM RANCH COOK Carlos Joyner MD LAB - URINE ORDERABLES Fin al Result LABORATORY [facility] [place] Lab [address] [facility] (no room number, 1st floor of clinic) [place] [address], [facility] documented in this encounter Visit Diagnoses Diagnosis Recurrent UTI- Primary Urinary tract infection, site not specified documented in this encounter Care Teams Radius Corner Machine Operator Relationship Specialty Start [place] [address] [place] [address] PCP - General 03/05/23 Carlos Joyner MD 909 [place], [place] 131945 Urology 12/09/19 Jadon Murray MD [facility] [address] [address] Referring Physician Pediatric Surgery 12/09/19 Maru Villagomez, RN Registered Nurse 12/10/19 Ang Slade MD 420 [facility] 394 [place], [place] 677685 Urology 04/24/20 Carlos Joyner MD [address] [place] [address] 129605 Assigned Surgical Provider 12/24/20 Ang Slade MD [address] [place] [address] [id number] Urology 12/18/22 Lakshmi Wilhelm PA-C [address] [place] [address] 900805 Physician Support Services Rep Urology 02/03/23 [place] [address] [place] [address] Assigned PCP 02/06/23 Alissa Perez PA-C [address] [place] [address] 932125 Physician Support Services Rep Surgery 09/04/23 Lakshmi Wilhelm PA-C [address] [place] [address] Physician Support Services Rep Urology 09/16/23 Aidee Valero PA-C [address] [place] [address] 067705 Assigned Musculoskeletal Provider 04/17/24 Tanisha Marlow 4120 [facility] [address] 03/30/24 documented as of this encounter
--- OUTSIDE RECORDS SUMMARY | 2024-07-18 22:47 | XMS_ITS | Encounter Summary ---
Author Organization [place] Address [address] [place] [address] Care Team Providers Care Primary Montessori Teacher Name Role Phone Carlos Joyner MD Unavailable [phone] Jadon Murray MD Unavailable [phone] Maru Villagomez RN Unavailable Unavailable Igncaia Duran MD Primary Care Provider [phone] Carlos oJyner MD Unavailable [phone] Ang Slade MD Unavailable [phone] Ang Slade MD Unavailable [phone] Carlos Joyner MD Unavailable [phone] Annalise Orta PA-C Unavailable [phone] Ang Slade MD Unavailable [phone] Lakshmi Wilhelm-C Unavailable [phone] Heladio Willoughby MD Primary Care Provider [phone] Heladio Willoughby MD Unavailable Alissa Perez PA-C Unavailable [phone] Lakshmi Wilhelm-C Unavailable [phone] Aidee Valero PA-C Unavailable [phone] Reason for Visit * Reason Onset Date Comments Call Back 06/07/2020 Stent FYI Encounter Details Date Type Department Care Team (Late st Contact Info) Description 06/07/2020 [facility] Urology Clinic [place] 33[address] [facility] 4th [place] [phone] Ang Slade MD 420 [facility] 394 [place] [address] Call Back (Stent FYI) Social History Tobacco [...] them back message sent to [email or web address] POUNCER * Telephone Encounter - Zo Geiger - 06/07/2020 3:16 PM CST [facility] Phone Message [...] Center (CSC): Urology Travel Screening: Not Applicable POUNCER documented in this encounter Plan of Treatment Upcoming Encounters Date Type Department Care Team (Late st Contact Info) Description 07/21/2024 4:00 PM BRIM POUNCER Office Visit [facility] [address] [place] [address] [place] [address] [place] [address] 09/07/2024 8:30 AM CDT Virtual Visit [facility] Urology Clinic [place] [address] [facility] 4th [place] [phone] Carlos Joyner MD [address] [place] [address] 714385 09/20/2024 11:00 AM CDT Office Visit [facility] [address] [place] [address] Sugey Mccoy, STEEL FLOOR PAN PLACING SUPERVISOR [facility] [address] [place] [address] [address] [place], [place] 158444 documented as of this encounter Visit Diagnoses Not on filedocumented in this encounter Additional Health Concerns Infection Onset Date Last Indicated Resolved Time MRSA Comment:Added from external infection. Pt has had Staph infections but never MRSA from Care everywhere chart review. Removing MRSA 1406/17/2019 02/06/2023 9:41 AM C DT documented as of this encounter Care Teams Primary Montessori Teacher Relationship Specialty Start Date End Date Ignacia Duran MD PCP - General Pediatrics 01/20/20 03/04/23 [place] [address] [place] [address] PCP - General 03/05/23 Carlos Joyner MD [address] [place] [address] Urology 12/09/19 Jadon Murray MD [facility] 2530 [facility] 550 [place] [address] Referring Physician Pediatric Surgery 12/09/19 Maru Villagomez, RN Registered Nurse 12/10/19 Carlos Joyner MD 909 [place] [address] Assigned Surgical Provider 03/17/20 Ang Slade MD 420 [facility] 394 [place] [address] Urology 04/24/20 Ang Slade MD 420 [facility] 394 [place], [place] 553835 Assigned Surgical Provider 08/13/20 Carlos Joyner MD [address] [place] [address] 184745 Assigned Surgical Provider 12/24/20 Annalise Orta PA-C 5200 [place] [address] Assigned Cancer Care Provider 05/13/21 11/01/22 Ang Slade MD [address] 363[address] Urology 12/18/22 Lakshmi Wilhelm PA-C [address] [place] [address] 732515 Physician Orchard Sprayer Urology 02/03/23 [place] [address] [place] [address] Assigned PCP 02/06/23 Alissa Perez PA-C [address] [place] [address] Physician Orchard Sprayer Surgery 09/04/23 Lakshmi Wilhelm PA-C 9 [place] [address] Physician Orchard Sprayer Urology 09/16/23 Aidee Valero PA-C [address] [place] [address] Assigned Musculoskeletal Provider 04/17/24 Tanisha Marlow 4120 [facility] [phone] 03/30/24 documented as of this encounter
--- OUTSIDE RECORDS SUMMARY | 2024-07-18 22:47 | XMS_ITS | Encounter Summary ---
Author Organization [place] Address [address] [place] [address] Care Team Providers Care Unloader Name Role Phone Carlos Joyner MD Unavailable [phone] Jadon Murray MD Unavailable [phone] Maru Villagomez RN Unavailable Unavailable Ignacia Duran MD Primary Care Provider Ang Slade MD Unavailable [phone] Carlos Joyner MD Unavailable [phone] Annalise Orta PA-C Unavailable [phone] Ang Slade MD Unavailable [phone] Lakshmi Wilhelm-C Unavailable [phone] Heladio Willoughby MD Primary Care Provider [phone] Heladio Willoughby MD Unavailable Alissa Perez PA-C Unavailable [phone] Lakshmi Wilhelm PA-C Unavailable [phone] Aidee Valero PA-C Unavailable [phone] Encounter Details Date Type Department Care Team (Late st Contact Info) Description 12/05/2021 [facility] Urology Clinic [address] [address] [facility] Social History Tobacco Use Types Packs/Day [...] st Contact Info) Description 07/21/2024 4:00 PM COORDINATOR OF PLACEMENT Office Visit [facility] [address] [place] [address] [place] [address] [place] [address] 09/07/2024 8:30 AM CDT Virtual Visit [facility] [address]th [place] [phone] Carlos Joyner MD [address] [place] [address] [phone] 09/20/2024 11:00 AM CDT Office Visit [facility] [address] [place] [address] [phone] Sugey Mccoy, NESTOR [address] 771074 documented as of this encounter Visit Diagnoses Not on filedocumented in this encounter Additional Health Concerns Infection Onset Date Last Indicated Resolved Time MRSA Comment:Added from external infection. Pt has had Staph infections but never MRSA from Care everywhere chart review. Removing MRSA 9.14.23 06/17/2019 02/06/2023 9:41 AM C DT documented as of this encounter Care Teams Unloader Relationship Specialty Start Date End Date Ignacia Duran MD PCP - General Pediatrics 01/20/20 03/04/23 [place] [address] [place] [address] PCP - General 03/05/23 Carlos Joyner MD [address] [place] [address] Urology 12/09/19 Jadon Murray MD [facility] [address] [address] Referring Physician Pediatric Surgery 12/09/19 Maru Villagomez, OTILIO Registered Nurse 12/10/19 Ang Slade MD [address] [place] [address] 514885 Urology 04/24/20 Carlos Joyner MD [address] [place] [address] Assigned Surgical Provider 12/24/20 Annalise Orta PA-C 5200 [place] [address] Assigned Cancer Care Provider 05/13/21 11/01/22 Ang Slade MD [address] [address] Urology 12/18/22 Lakshmi Wilhelm PA-C 909 [place] [address] Physician Matchbook Maker Urology 02/03/23 [place] [address] [place] [address] Assigned PCP 02/06/23 Alissa Perez PA-C [address] [place] [address] Physician Matchbook Maker Surgery 09/04/23 Lakshmi Wilhelm PA-C [address] [place] [address] Physician Matchbook Maker Urology 09/16/23 Aidee Valero PA-C [address] [place] [address] Assigned Musculoskeletal Provider 04/17/24 Tanisha Marlow 4120 [facility] [address] 03/30/24 documented as of this encounter
--- OUTSIDE RECORDS SUMMARY | 2024-07-18 22:47 | XMS_ITS | Encounter Summary ---
Author Organization [place] Address [address] [place] [address] Care Team Providers Care Sponge Buffer Name Role Phone Carlos Joyner MD Unavailable [phone] Jadon Murray MD Unavailable [phone] Maru Villagomez RN Unavailable Unavailable Ang Slade MD Unavailable [phone] Carlos Joyner MD Unavailable [phone] Ang Slade MD Unavailable [phone] Lakshmi Wilhelm PA-C Unavailable [phone] Heladio Willoughby MD Primary Care Provider Heladio Willoughby MD Unavailable Alissa Perez PA-C Unavailable [phone] Lakshmi Wilhelm PA-C Unavailable [phone] Aidee Valero PA-C Unavailable Reason for Visit * Reason Onset Date Comments Call Back 06/24/2024 Previous message from [employer] Encounter Details Date Type Department Care Team (Late st Contact Info) Description 06/24/[address] [facility] Urology Clinic [address]th [place] [address] Carlos Joyner MD [address] [place] [address] Call Back (Previous message from [employer]) Social History Tobacco Use Types Packs/Day Years [...] has an infection. RN sent antibiotics to [facility] pharmacy for pt. OTILIO Becker Band Saw Operator Cake Cutting- Urology [phone] ROLL WORKER * Telephone Encounter - Amari Mcconnell RN - 06/28/2024 8:37 AM CST RN returned call to Tanisha, pt's guardian, with urine culture results. If symptomatic, rec Macrobid 100mg BID x [address] Joyner. RN requested return call to confirm plan. OTILIO Becker Band Saw Operator Cake Cutting- Urology [phone] ROLL WORKER * Telephone Encounter - Kilo Perez - 06/24/2024 3:23 PM GREY ROLL WORKER [facility] Phone Message May a detailed message be left on voicemail: yes Reason for Call: Alison from patients facility is requesting a response from yesterday's [employer] message RUPA: Mary Joyner & Team, [facility] sent the below message regarding her urine. Do you think she should have a urinalysis done in case of infection? Thank you greatly for advising. From: Christie Avila < > Sent: Sunday, June 23, 2024 10:06 AM To: Tanisha Marlow < [email or web address]>; Nurse < > Subject: MS Good Morning [...] Avila RN, BSN, PHN, LSN Building Nurse [facility] Alison also reports the following updates for today: AM 220CC large amount of urine in brief. PM 380CC Yellow urine and sediment noted. Action Taken: Message routed to: [facility] Urology Travel Screening: Not Applicable Date of Service: ROLL WORKER * Addendum Note - Amari Mcconnell RN - 06/24/2024 3:23 PM CSTAddended by: AMARI MCCONNELL on: 06/29/2024 09:13 AM Modules accepted: Orders ROLL WORKER documented in this encounter Plan of Treatment Upcoming Encounters Date Type Department Care Team (Late st Contact Info) Description 07/21/2024 4:00 PM GREY ROLL WORKER Office Visit [facility] [address] [place] [phone] [place] [address] [place], [place] [phone] 09/07/2024 8:30 AM CDT Virtual Visit [facility] Urology Clinic [address] [place] [phone] Carlos Joyner MD [address] [place] [address] [phone] 09/20/2024 11:00 AM CDT Office Visit [facility] Sleep Center [address] [address] Sugey Mccoy, CONCEPT ARTIST SHELVING SUPERVISOR [address] [place] [address] documented as of this encounter Visit Diagnoses Diagnosis Recurrent UTI- Primary Urinary tract infection, site not specified documented in this encounter Care Teams Sponge Buffer Relationship Specialty Start [place] [address] [facility] [place] [address] PCP - General 03/05/23 Carlos Joyner MD [address] [place] [address] Urology 12/09/19 Jadon Murray MD [facility] 2530 [facility] [place] 550 [place] [address] Referring Physician Pediatric Surgery 12/09/19 Maru Villagomez, RN Registered Nurse 12/10/19 Ang Slade MD [address] [place] [address] Urology 04/24/20 Carlos Joyner MD [address] [place] [address] 230815 Assigned Surgical Provider 12/24/20 Ang Slade MD 420 [facility] 394 [place] [address] Urology 12/18/22 Lakshmi Wilhelm PA-C [address] [place] [address] Physician Planer Feeder Urology 02/03/23 [place] [address] [place] [address] Assigned PCP 02/06/23 Alissa Perez PA-C [address] [place] [address] Physician Planer Feeder Surgery 09/04/23 Lakshmi Wilhelm PA-C [address] [place] [address] Physician Planer Feeder Urology 09/16/23 Aidee Valero PA-C [address] [place] [address] Assigned Musculoskeletal Provider 04/17/24 Tanisha Marlow 4120 [facility] [address] 03/30/24 documented as of this encounter
--- OUTSIDE RECORDS SUMMARY | 2024-07-18 22:47 | XMS_ITS | Encounter Summary ---
Author Organization [place] Address [address] [place] [address] Care Team Providers Care Planning Manager Name Role Phone Carlos Joyner MD Unavailable [phone] Jadon Murray MD Unavailable [phone] Maru Villagomez RN Unavailable Unavailable Ignacia Duran MD Primary Care Provider [phone] Carlos Joyner MD Unavailable +[phone] Ang Slade MD Unavailable [phone] Ang Slade MD Unavailable [phone] Carlos Joyner MD Unavailable +[phone] Annalise Orta-C Unavailable [phone] Ang Slade MD Unavailable [phone] Lakshmi Wilhelm-C Unavailable [phone] Heladio Willoughby MD Primary Care Provider [phone] Heladio Willoughby MD Unavailable Alissa Perez PA-C Unavailable [phone] Lakshmi Wilhelm-C Unavailable [phone] Aidee Valero PA-C Unavailable [phone] Reason for Visit * Reason Comments Orders Encounter Details Date Type Department Care Team (Late st Contact Info) Description 02/02/2020 Orders Only [facility] Urology and [facility] [address] [phone] Maru Villagomez, RN Social History Tobacco Use [...] st Contact Info) Description 07/21/2024 4:00 PM BILLING CUSTOMER SERVICE REPRESENTATIVE Office Visit [facility] [address] [place] [phone] [place] [address] [place] [address] 09/07/2024 8:30 AM CDT Virtual Visit [facility] Urology Clinic [address] [phone] Carlos Joyner MD [address] [place] [address] 444755 09/20/2024 11:00 AM CDT Office Visit [facility] Sleep Center [address] [phone] Sugey Mccoy APRN [address] [address] documented as of this encounter Visit Diagnoses Not on filedocumented in this encounter Additional Health Concerns Infection Onset Date Last Indicated Resolved Time MRSA Comment:Added from external infection. Pt has had Staph infections but never MRSA from Care everywhere chart review. Removing MRSA 9.14.06/17/2019 02/06/2023 9:41 AM C DT documented as of this encounter Care Teams Planning Manager Relationship Specialty Start Date End Date Ignacia Duran MD PCP - General Pediatrics 01/20/20 03/04/23 [place] [address] [place] [address] PCP - General 03/05/23 Carlos Joyner MD [address] [place] [address] 287675 Urology 12/09/19 Jadon Murray MD [facility] [address] [id number] Referring Physician Pediatric Surgery 12/09/19 Maru Villagomez, RN Registered Nurse 12/10/19 Carlos Joyner MD [address] [place] [address] 279175 Assigned Surgical Provider 03/17/20 Ang Slade MD [address] [place] [address] Urology 04/24/20 Ang Slade MD [address] [place] [address] 853935 Assigned Surgical Provider 08/13/20 Carlos Joyner MD [address] [place] [address] 998195 Assigned Surgical Provider 12/24/20 Annalise Orta PA-C 5200 [place] [address] Assigned Cancer Care Provider 05/13/21 11/01/22 Ang Slade MD [address] [place] [address] [phone] MD Urology 12/18/22 Lakshmi Wilhelm PA-C [address] [place] [address] 553205 Physician Golf Club Head Inspector And Adjuster Urology 02/03/23 [place] [address] [place] [address] Assigned PCP 02/06/23 Alissa Perez PA-C [address] [place] [address] 082265 Physician Golf Club Head Inspector And Adjuster Surgery 09/04/23 Lakshmi Wilhelm PA-C [address] [place] [address] 409045 Physician Golf Club Head Inspector And Adjuster Urology 09/16/23 Aidee Valero PA-C [address] [place] [address] 959925 Assigned Musculoskeletal Provider 04/17/24 Tanisha Marlow 4120 [facility] [address] 03/30/24 documented as of this encounter
--- OUTSIDE RECORDS SUMMARY | 2024-07-18 22:47 | XMS_ITS | Encounter Summary ---
Author Organization [place] Address [address] [place] [address]. [place] [address] Care Team Providers Care International Flight Attendant Name Role Phone Carlos Joyner MD Unavailable [phone] Jadon Murray MD Unavailable [phone] Maru Villagomez RN Unavailable Unavailable Ang Slade MD Unavailable [phone] Carlos Joyner MD Unavailable [phone] Ang Slade MD Unavailable [phone] Lakshmi Wilhelm-C Unavailable [phone] Heladio Willoughby MD Primary Care Provider [phone] Heladio Willoughby MD Unavailable Alissa Perez PA-C Unavailable [phone] Lakshmi Wilhelm-C Unavailable [phone] Aidee Valero PA-C Unavailable +[phone] Reason for Visit * Reason Onset Date Comments Orders 06/22/2024 Encounter Details Date Type Department Care Team (Late st Contact Info) Description 06/22/2024 Telephone [facility] [address] [place] [address] [place] [address] [place] [address] Orders Social History Tobacco Use [...] 06/24/2024 7:55 AM CST Returned call to [facility] with [employer], left detailed VM with order approval per provider. Tanisha Quiros RN on 06/24/2024 at 7:56 AM OR NATIONAL ACCOUNT MANAGER * Telephone Encounter - Heladio Willoughby MD - 06/24/2024 5:49 AM CST Verbal order given. Thanks, Heladio Willoughby MD [facility] 06/24/2024 OR NATIONAL ACCOUNT MANAGER * Telephone Encounter - Ileana Lieberman RN - 06/22/2024 3:46 PM CST Received call from Vanessa at [facility] Requesting verbal order from Dr Heladio Willoughby for 30 Peristeen Catheters to be dispensed and shipped yodit. Under current DME order, unable to ship until end of June (3 month supply at a time), patient recently moved to new home and supplies were lost during move. Please call Vanessa back with provider approval of verbal order. Ok to leave detailed message if needed. OR NATIONAL ACCOUNT MANAGER documented in this encounter Plan of Treatment Upcoming Encounters Date Type Department Care Team (Late st Contact Info) Description 07/21/2024 4:00 PM SENIOR NATIONAL ACCOUNT MANAGER Office Visit [facility] [address] [place] [phone] [place] [address] [place], [place] [phone] 09/07/2024 8:30 AM CDT Virtual Visit [facility] [address] [place] [phone] Carlos Joyner MD [address] [place] [address] 173795 09/20/2024 11:00 AM CDT Office Visit [facility] [address] [phone] Sugey Mccoy APRN [address] [phone] documented as of this encounter Procedures Procedure Name Priority Date/Time Associated Diagnosis Comments ROUTINE UA WITH MICROSCOPIC Routine 06/25/2024 9:14 AM SENIOR NATIONAL ACCOUNT MANAGER Recurrent UTI URINE MICROSCOPIC EXAM Routine 06/25/2024 9:14 AM SENIOR NATIONAL ACCOUNT MANAGER Recurrent UTI URINE CULTURE Routine 06/25/2024 9:14 AM SENIOR NATIONAL ACCOUNT MANAGER Recurrent UTI documented in this encounter Results * (ABNORMAL) Urine Microscopic Exam (06/25/2024 9:14 AM SENIOR NATIONAL ACCOUNT MANAGER) Bacteria Urine Many(A) None Seen /HPF LINDA 06/25/2024 9:20 AM SENIOR NATIONAL ACCOUNT MANAGER [facility] LAB[facility]ATORY RBC Urine 2-5(A) 0-2 /HPF /HPF LINDA 06/25/2024 9:20 AM SENIOR NATIONAL ACCOUNT MANAGER [facility] WBC Urine 10-25(A) 0-5 /HPF /HPF LINDA 06/25/2024 9:20 AM SENIOR NATIONAL ACCOUNT MANAGER [facility] Amorphous Crystals Urine Few(A) None Seen /HPF LINDA 06/25/2024 9:20 AM SENIOR NATIONAL ACCOUNT MANAGER [facility]ORY Urine URINE SPECIMEN FROM URINARY CONDUIT / Unknown Non-blood Collection / Unknown 06/25/2024 9:14 AM SENIOR NATIONAL ACCOUNT MANAGER 06/25/2024 9:15 AM SENIOR NATIONAL ACCOUNT MANAGER Cralos Joyner MD LAB - URINE ORDERABLES Fin al Result LABORATORY [facility] [place] [facility] [address] [facility] (no room number, 1st floor of clinic) [place] [address], [facility] * (ABNORMAL) Urine Culture (06/25/2024 9:14 AM SENIOR NATIONAL ACCOUNT MANAGER) Culture >100,000 CFU/mL Staphylococcus epidermidis(A) LINDA 06/28/2024 6:49 AM SENIOR NATIONAL ACCOUNT MANAGER [facility] Culture 50,000-100,000 CFU/mL Staphylococcus epidermidis(A) 06/28/2024 6:49 AM SENIOR NATIONAL ACCOUNT MANAGER [facility] Urine URINE SPECIMEN OBTAINED VIA INDWELLING URINARY CATHETER / Unknown Non-blood Collection / Unknown 06/25/2024 9:14 AM SENIOR NATIONAL ACCOUNT MANAGER 06/25/2024 9:15 AM SENIOR NATIONAL ACCOUNT MANAGER Narrative Organism Antibiotic Method Susceptibility Staphylococcus epidermidis [...] ORDERA BLES Final Result [facility] Inf. Diseases Diag. Lab [address] [facility], [address] [place] [id number] * (ABNORMAL) UA with Microscopic (06/25/2024 9:14 AM SENIOR NATIONAL ACCOUNT MANAGER) Color Urine Yellow Colorless, Straw, Light Yellow, Yellow 06/25/2024 9:19 AM SENIOR NATIONAL ACCOUNT MANAGER LABORATORY Appearance Urine Cloudy(A) Clear 06/25/19 25 9:19 AM [facility] Glucose Urine Negative Negative mg/dL 06/25/2024 9:19 AM [facility] Bilirubin Urine Negative Negative 9:19 AM [facility] Ketones Urine Negative Negative mg/dL 06/25/2024 9:19 AM [facility] Specific Scalf Urine 1.020 1.003 - 1.035 06/25/2024 9:19 AM [facility] Blood Urine Small(A) Negative 06/25/2024 9:19 AM [facility] pH Urine 6.0 5.0 - 7.0 06/25/2024 9:19 AM [facility] Protein Albumin Urine Negative Negative mg/dL 06/25/2024 9:19 AM [facility] Urobilinogen Urine 0.2 0.2, 1.0 E.U./dL 06/25/2024 9:19 AM [facility] Nitrite Urine Positive(A) Negative 06/25/2024 9:19 AM [facility] Leukocyte Esterase Urine Small(A) Negative 06/25/2024 9:19 AM [facility] Urine URINE SPECIMEN FROM URINARY CONDUIT / Unknown Non-blood Collection / Unknown 06/25/2024 9:14 AM SENIOR NATIONAL ACCOUNT MANAGER 06/25/2024 9:15 AM [facility] us Carlos Joyner MD LAB - URINE ORDERABLES Fin al Result LABORATORY [facility] [place] [facility] [address] [facility] (no room number, 1st floor of clinic) [place] [address] documented in this encounter Visit Diagnoses Diagnosis Recurrent UTI Urinary tract infection, site not specified documented in this encounter Care Teams International Flight Attendant Relationship Specialty Start [place] [address] [place] [address] PCP - General 03/05/23 Carlos Joyner MD [address] [place] [address] Urology 12/09/19 Jadon Murray MD [facility] [address] [facility] [address] [place] [address] Referring Physician Pediatric Surgery 12/09/19 Maru Villagomez, RN Registered Nurse 12/10/19 Ang Slade MD [address] [facility] [address] [place], [place] 482095 Urology 04/24/20 Carlos Joyner MD [address] [place] [address] 562275 Assigned Surgical Provider 12/24/20 Ang Slade MD [address] [place] [address] 394 [place], [place] 966955 MD Urology 12/18/22 Lakshmi Wilhelm PA-C [address] [place] [address] 488845 Physician Corporate Vp Advertising & Online Urology 02/03/23 [place] [address] [place] [address] Assigned PCP 02/06/23 Alissa Perez PA-C [address] [place] [address] 998675 Physician Corporate Vp Advertising & Online Surgery 09/04/23 Lakshmi Wilhelm PA-C [address] [place] [address] 070035 Physician Corporate Vp Advertising & Online Urology 09/16/23 Aidee Valero PA-C 909 [place] [address] Assigned Musculoskeletal Provider 04/17/24 Tanisha Marlow 4120 [facility] [address] 03/30/24 documented as of this encounter
--- OUTSIDE RECORDS SUMMARY | 2024-07-18 22:47 | XMS_ITS | Encounter Summary ---
Author Organization [place] Address [address] [place] [address] Care Team Providers Care Trauma Surgeon Name Role Phone Carlos Joyner MD Unavailable [phone] Jadon Murray MD Unavailable [phone] Maru Villagomez RN Unavailable Unavailable Ang Slade MD Unavailable [phone] Carlos Joyner MD Unavailable [phone] Ang Slade MD Unavailable [phone] Lakshmi Wilhelm-C Unavailable [phone] Heladio Willoughby MD Primary Care Provider [phone] Heladio Willoughby MD Unavailable Alissa Perez PA-C Unavailable [phone] Lakshmi Wilhelm-C Unavailable [phone] Aidee Vaelro PA-C Unavailable [phone] Reason for Visit * Reason Onset Date Comments Call Back 04/21/2024 Pt still having UTI Symptoms. They are wanting to see about getting a new antibiotic. Please call Nurse platform material handler manager at [phone]. Please call Yamini. As they would like to get something done prior to the holiday. Thanks Encounter Details Date Type Department Care Team ([facility] st Contact Info) Description 04/21/2024 Telephone [facility] [address] 4th [place] [address] Carlos Joyner MD [address] [place] [address] Call Back (Pt still having UTI Symptoms. They are wanting to see about getting a new antibiotic. Please call Nurse platform material handler manager at [phone]. Please call Yamini. As they would like [...] getting a new antibiotic. Please call Nurse platform material handler manager at [phone]. Please call Yamini. As they would like to get something done prior to the holiday. Thanks Action Taken: Other: uro Travel Screening: Not Applicable Date of Service: ARY CLERK documented in this encounter Plan of Treatment Upcoming Encounters Date Type Department Care Team (Late st Contact Info) Description 07/21/2024 4:00 PM ACTUARY CLERK Office Visit [facility] [address] [place] [phone] [place] [address] [place], [place] [phone] 09/07/2024 8:30 AM CDT Virtual Visit [facility] [address] 4th [place] [phone] Carlos Joyner MD [address] [place] [address] [id number] 09/20/2024 11:00 AM CDT Office Visit [facility] [address] [phone] Sugey Mccoy, RETORT OPERATOR [address] [place], [place] 669784 documented as of this encounter Visit Diagnoses Not on filedocumented in this encounter Care Teams Trauma Surgeon Relationship Specialty Start [place] [address] [place], [place] [phone] PCP - General 03/05/23 Carlos Joyner MD [address] [place] [address] Urology 12/09/19 Jadon Murray MD [facility] 2530 [facility] 550 [place] [address] Referring Physician Pediatric Surgery 12/09/19 Maru Villagomez, RN Registered Nurse 12/10/19 Ang Slade MD [address] [place] [address] 394 [place], [place] 235105 Urology 04/24/20 Carlos Joyner MD [address] [place] [address] 071345 Assigned Surgical Provider 12/24/20 Ang Slade MD [address] [place] [address] 394 [place], [place] 107665 Urology 12/18/22 Lakshmi Wilhelm PA-C [address] [place] [address] 586955 Physician Business Education Professor Urology 02/03/23 [place] [address] [place] [address] Assigned PCP 02/06/23 Alissa Perez PA-C [address] [place] [address] 565215 Physician Business Education Professor Surgery 09/04/23 Lakshmi Wilhelm PA-C [address] [place] [address] 850985 Physician Business Education Professor Urology 09/16/23 Aidee Valero PA-C 9 [place] [address] Assigned Musculoskeletal Provider 04/17/24 Tanisha Marlow 4120 [facility] [address] 03/30/24 documented as of this encounter
--- OUTSIDE RECORDS SUMMARY | 2024-07-18 22:47 | XMS_ITS | Encounter Summary ---
Author Organization [place] Address [address] [place] [address] Care Team Providers Care Retail Bakery Manager Name Role Phone Carlos Joyner MD Unavailable [phone] Jadon Murray MD Unavailable [phone] Maru Villagomez RN Unavailable Unavailable Ignacia Duran MD Primary Care Provider [phone] Ang Slade MD Unavailable [phone] Carlos Joyner MD Unavailable [phone] Annalise Orta PA-C Unavailable [phone] Ang Slade MD Unavailable [phone] Lakshmi Wilhelm-C Unavailable [phone] Heladio Willoughby MD Primary Care Provider [phone] Heladio Willoughby MD Unavailable Alissa Perez PA-C Unavailable [phone] Lakshmi Wilhelm PA-C Unavailable [phone] Aidee Valero PA-C Unavailable [phone] Reason for Visit * Reason Onset Date Comments Orders 01/01/2022 Syringes - 35 an d 60 ml requested Encounter Details Date Type Department Care Team (Late st Contact Info) Description 01/01/2022 Telephone [facility] [address] 4th [place] [address] Carlos Joyner MD [address] [place] [address] Orders (Syringes - 35 and 60 ml [...] mycharts Thank you!! Analisa Message text Sharon Mckeno CMA Mas[place], Basil, EMT 6 days ago [...] order to [facility] at [phone]. Thank you. Action Taken: Other: Urology Travel Screening: Not Applicable documented in this encounter Plan of Treatment Upcoming Encounters Date Type Department Care Team (Late st Contact Info) Description 07/21/2024 4:00 PM TRAFFIC COUNTER Office Visit [facility] [address] [place] [phone] [place] [address] [place], [place] [phone] 09/07/2024 8:30 AM CDT Virtual Visit [facility] [address] 4th [place] [phone] Carlos Joyner MD [address] [place] [address] 525385 09/20/2024 11:00 AM CDT Office Visit [facility] [address] [phone] Sugey Mccoy APRN [address] 17360[address] documented as of this encounter Visit Diagnoses Not on filedocumented in this encounter Additional Health Concerns Infection Onset Date Last Indicated Resolved Time MRSA Comment:Added from external infection. Pt has had Staph infections but never MRSA from Care everywhere chart review. Removing MRSA 02.06.23 06/17/2019 02/06/2023 9:41 AM C DT documented as of this encounter Care Teams Retail Bakery Manager Relationship Specialty Start Date End Date Ignacia Duran MD PCP - General Pediatrics 01/20/20 03/04/23 [place] [address] [place] [address] PCP - General 03/05/23 Carlos Joyner MD [address] [place] [address] Urology 12/09/19 Jadon Murray MD [facility] 2530 [facility] [address] [address] Referring Physician Pediatric Surgery 12/09/19 Maru Villagomez, RN Registered Nurse 12/10/19 Ang Slade MD [address] [place] [address] Urology 04/24/20 Carlos Joyner MD [address] [place] [address] Assigned Surgical Provider 12/24/20 Annalise Orta PA-C 5200 [place] [address] Assigned Cancer Care Provider 05/13/21 11/01/22 Ang Slade MD [address] [place] [address] Urology 12/18/22 Lakshmi Wilhelm PA-C [address] [place] [address] Physician Plumber Assistant Urology 02/03/23 [place] [address] [facility] [place] [address] Assigned PCP 02/06/23 Alissa Perez PA-C [address] [place] [address] Physician Plumber Assistant Surgery 09/04/23 Lakshmi Wilhelm PA-C [address] [place] [address] 851235 Physician Plumber Assistant Urology 09/16/23 Aidee Valero PA-C [address] [place] [address] 288155 Assigned Musculoskeletal Provider 04/17/24 Tanisha Marlow 4120 [facility] [address] 03/30/24 documented as of this encounter
--- OUTSIDE RECORDS SUMMARY | 2024-07-18 22:47 | XMS_ITS | Encounter Summary ---
Author Organization [place] Address [address] [place] [address] Care Team Providers Care Cottage Parent Name Role Phone Carlos Joyner MD Unavailable [phone] Jadon Murray MD Unavailable [phone] Maru Villagomez RN Unavailable Unavailable Ang Slade MD Unavailable [phone] Carlos Joyner MD Unavailable [phone] Ang Slade MD Unavailable [phone] Lakshmi Wilhelm-C Unavailable [phone] Heladio Willoughby MD Primary Care Provider [phone] Heladio Willoughby MD Unavailable Alissa Perez PA-C Unavailable [phone] Lakshmi Wilhelm-C Unavailable [phone] Aidee Valero PA-C Unavailable [phone] Encounter Details Date Type Department Care Team [...] st Contact Info) Description 07/21/2024 4:00 PM MEDIA ANALYTICS MANAGER Office Visit [facility] [address] [place] [phone] [place] [address] [place], [place] [phone] 09/07/2024 8:30 AM CDT Virtual Visit [facility] [address] [place] [address] Carlos Joyner MD [address] [place] [address] 105665 09/20/2024 11:00 AM CDT Office Visit [facility] Sleep Center [address] [phone] Sugey Mccoy, STORAGE ADMINISTRATOR CLERICAL AND ADMINISTRATIVE WORKERS [address] [place] [address] documented as of this encounter Visit Diagnoses Not on filedocumented in this encounter Care Teams Cottage Parent Relationship Specialty [place] [address] [place] [address] PCP - General 03/05/23 Carlos Joyner MD [address] [place] [address] Urology 12/09/19 Jadon Murray MD [facility] [address] [place] [address] [place] [address] Referring Physician Pediatric Surgery 12/09/19 Maru Villagomez, RN Registered Nurse 12/10/19 Ang Slade MD [address] [place] [address] 095525 Urology 04/24/20 Carlos Joyner MD [address] [place] [address] 848565 Assigned Surgical Provider 12/24/20 Ang Slade MD [address] [address] Urology 12/18/22 Lakshmi Wilhelm PA-C [address] [place] [address] Physician Dobby Looms Pegger Urology 02/03/23 [place] [address] [place] [address] Assigned PCP 02/06/23 Alissa Perez PA-C [address] [place] [address] Physician Dobby Looms Pegger Surgery 09/04/23 Lakshmi Wilhelm PA-C [address] [place] [address] Physician Dobby Looms Pegger Urology 09/16/23 Aidee Valero PA-C [address] [place] [address] Assigned Musculoskeletal Provider 04/17/24 Tanisha Marlow [facility]0 [facility] [address] 03/30/24 documented as of this encounter
--- OUTSIDE RECORDS SUMMARY | 2024-07-18 22:47 | XMS_ITS | Encounter Summary ---
Author Organization [place] Address [address] [place] [address] Care Team Providers Care Solar Applications Development Engineer Name Role Phone Carlos Joyner MD Unavailable [phone] Jadon Murray MD Unavailable [phone] Maru Villagomez RN Unavailable Unavailable Ang Slade MD Unavailable [phone] Carlos Joyner MD Unavailable [phone] Ang Slade MD Unavailable [phone] Lakshmi Wilhelm-C Unavailable Heladio Willoughby MD Primary Care Provider [phone] Heladio Willoughby MD Unavailable Alissa Perez PA-C Unavailable [phone] Lakshmi Wilhelm-C Unavailable [phone] Aidee Valero PA-C Unavailable [phone] Reason for Visit * Reason Comments Medication Refill Encounter Details Date Type Department Care Team (Late st Contact Info) Description 07/05/2024 Refill [facility] [address] [place] [address] Carlos Joyner MD [address] [place] [address] Medication Refill Social History Tobacco Use [...] EVERY MORNINGStart: 06/17/2023Ord/Sold: 06/17/2023 (O)Ordered On: 4Pharmacy: [id number] [address] Associated: Taking: Long-term: Med Note: Patient Sig: Take 1 tablet (1.25 mg) by mouth every morning Ordering Department: [facility] Authorized By: Carlos Joyner MD Dispense: 90 tablet Refills: 3 ordered Last Visit Date: 09/23/23 Anya MANRIQUE Future Visit Date: 09/07/24 [] Refill decision: Medication refilled per ???Medication Refill in Bearing Press Machine Operator?? policy. [] Supervision: no future appointment scheduled. [...] in past 12 months Elysia Emanuel RN [facility] Central Nursing/Red Flag Triage & Med Refill Team LE CATCHER documented in this encounter Plan of Treatment Upcoming Encounters Date Type Department Care Team (Late st Contact Info) Description 07/21/2024 4:00 PM MANGLE CATCHER Office Visit [facility] [address] [place] [phone] [place] [address] [place], [place] [phone] 09/07/2024 8:30 AM CDT Virtual Visit [facility] [address] [place] [phone] Carlos Joyner MD [address] [place] [address] 977215 09/20/2024 11:00 AM CDT Office Visit [facility] [address] [phone] Sugey Mccoy, RELIGIOUS HEALER [address] 499[address] documented as of this encounter Visit Diagnoses Diagnosis Hypercalciuria Unspecified disorders of calcium metabolism documented in this encounter Care Teams Solar Applications Development Engineer Relationship Specialty Start [place] [address] [place], [place] [phone] PCP - General 03/05/23 Carlos Joyner MD [address] [place] [address] 192725 Urology 12/09/19 Jadon Murray MD [facility] [address] [id number] Referring Physician Pediatric Surgery 12/09/19 Maru Villagomez, OTILIO Registered Nurse 12/10/19 Ang Slade MD [address] [place] [address] Urology 04/24/20 Carlos Joyner MD [address] [place] [address] Assigned Surgical Provider 12/24/20 Ang Slade MD [address] [place] [address] Urology 12/18/22 Lakshmi Wilhelm PA-C [address] [place] [address] Physician Wind Commissioning Technician Urology 02/03/23 [place] [address] [address] [place], [place] 7240568 Assigned PCP 02/06/23 Alissa Perez PA-C [address] [place] [address] 646065 Physician Wind Commissioning Technician Surgery 09/04/23 Lakshmi Wilhelm PA-C 909 [place], [place] 650435 Physician Wind Commissioning Technician Urology 09/16/23 Aidee Valero PA-C [address] [place] [address] 579645 Assigned Musculoskeletal Provider 04/17/24 Tanisha Marlow 4120 [facility] [address] 03/30/24 documented as of this encounter
--- OUTSIDE RECORDS SUMMARY | 2024-07-18 22:47 | XMS_ITS | Encounter Summary ---
Author Organization [place] Address [address] [place] [address] 18539 Care Team Providers Care Director Human Services Name Role Phone Carlos Joyner MD Unavailable [phone] Jadon Murray MD Unavailable [phone] Maru Villagomez RN Unavailable Unavailable Ignacia Duran MD Primary Care Provider Ang Slade MD Unavailable [phone] Carlos Joyner MD Unavailable +[phone] Annalise Orta PA-C Unavailable +[phone] Ang Slade MD Unavailable +[phone] Lakshmi Wilhelm-C Unavailable +[phone] Heladio Willoughby MD Primary Care Provider [phone] Heladio Willoughby MD Unavailable Alissa Perez PA-C Unavailable [phone] Lakshmi Wilhelm PA-C Unavailable [phone] Aidee Valero PA-C Unavailable +[phone] Encounter Details Date Type Department Care Team (Late st Contact Info) Description 11/07/2021 [facility] Urology Clinic [address] [place] [address] Analisa Palacio, RN Social History [...] st Contact Info) Description 07/21/2024 4:00 PM BUFFET WAITER/WAITRESS Office Visit [facility] [address] [place] [address] [place] [address] [place] [address] 09/07/2024 8:30 AM CDT Virtual Visit [facility] Urology Clinic [address] [place] [address] Carlos Joyner MD [address] [place] [address] [id number] 09/20/2024 11:00 AM CDT Office Visit [facility] Sleep Center [address] [phone] Sugey Mccoy, AMPOULE EXAMINER [address] 557174 documented as of this encounter Visit Diagnoses Not on filedocumented in this encounter Additional Health Concerns Infection Onset Date Last Indicated Resolved Time MRSA Comment:Added from external infection. Pt has had Staph infections but never MRSA from Care everywhere chart review. Removing MRSA 9.14.23 06/17/2019 02/06/2023 9:41 AM C DT documented as of this encounter Care Teams Director Human Services Relationship Specialty Start Date End Date Ignacia Duran MD PCP - General Pediatrics 01/20/20 03/04/23 [place] [address] [facility] [place] [address] PCP - General 03/05/23 Carlos Joyner MD [address] [place] [address] Urology 12/09/19 Jadon Murray MD [facility] [address] [address] Referring Physician Pediatric Surgery 12/09/19 Maru Villagomez, RN Registered Nurse 12/10/19 Ang Slade MD [address] 784095 Urology 04/24/20 Carlos Joyner MD [address] [place] [address]69 Assigned Surgical Provider 12/24/20 Annalise Orta PA-C 5200 [place] [address] Assigned Cancer Care Provider 05/13/21 11/01/22 Ang Slade MD [address] [address] Urology 12/18/22 Lakshmi Wilhelm PA-C [address] [place] [address] Physician Behavioral Health Counselor Urology 02/03/23 [place] [address] [place] [address] Assigned PCP 02/06/23 Alissa Perez PA-C [address] [place] [address]78 Physician Behavioral Health Counselor Surgery 09/04/23 Lakshmi Wilhelm PA-C [address] [place] [address] 60265 Physician Behavioral Health Counselor Urology 09/16/23 Aidee Valero PA-C [address] [place] [address] 666[address] Assigned Musculoskeletal Provider 04/17/24 Tanisha Marlow 4120 [facility] [address] 03/30/24 documented as of this encounter
--- OUTSIDE RECORDS SUMMARY | 2024-07-18 22:47 | XMS_ITS | Encounter Summary ---
Author Organization [place] Address [address] [place] [address] Care Team Providers Care Permanent Waver Name Role Phone Carlos Joyner MD Unavailable [phone] Jadon Murray MD Unavailable +[phone] Maru Villagomez RN Unavailable Unavailable Ang Slade MD Unavailable [phone] Carlos Joyner MD Unavailable [phone] Ang Slade MD Unavailable [phone] Lakshmi Wilhelm-C Unavailable [phone] Heladio Willoughby MD Primary Care Provider Heladio Willouhgby MD Unavailable Alissa Perez PA-C Unavailable [phone] Lakshmi Wilhelm-C Unavailable [phone] Aidee Valero PA-C Unavailable +[phone] Encounter Details Date Type Department Care Team [...] than three times a week 07/16/2024 Attends Taoism Services Not on file 02/21 /2025 Active Member of Clubs or Organizations Not on f ile 07/16/2024 Attends Club or Organization Meetings Not on antelmo e 07/16/2024 Marital Status Not on file 07/16/2024 PHQ-2 Answer Date Recorded PHQ-2 Score 0 06/24/2023 [facility] [place] of Occupat ional Health - Occupational Stress [...] building, in an overnight mcc, or couch-surfing.) No 07/16/2024 Are you worried [...] st Contact Info) Description 07/21/2024 4:00 PM CORONER TRANSPORT TECHNICIAN Office Visit [facility] [address] [place] [phone] [place] [address] [place], [place] [phone] 09/07/2024 8:30 AM CDT Virtual Visit [facility] Urology Clinic [place] [address] [place] [address] 4th [place] [phone] Carlos Joyner MD [address] [place] [address] 588795 09/20/2024 11:00 AM CDT Office Visit [facility] Sleep Center [place] [address] [place] [phone] Sugey Mccoy, CORPORATE MEETING PLANNER [facility] [address] [place] [address] [address] [place], [place] 998684 documented as of this encounter Visit Diagnoses Not on filedocumented in this encounter Care Teams Permanent Waver Relationship Specialty Start [place] [address] [place] [address] PCP - General 03/05/23 Carlos Joyner MD [address] [place] [address] Urology 12/09/19 Jadon Murray MD [facility] 2530 [facility] [address] [place] [address] Referring Physician Pediatric Surgery 12/09/19 Maru Villagomez, OTILIO Registered Nurse 12/10/19 Ang Slade MD [address] [place] [address] 394 [place], [place] 721775 Urology 04/24/20 Carlos Joyner MD [address] [place] [address] 095535 Assigned Surgical Provider 12/24/20 Ang Slade MD [address] [place] [address] Urology 12/18/22 Lakshmi Wilhelm PA-C [address] [place] [address] 713205 Physician [facility] Urology 02/03/23 [place] [address] [place] [address] Assigned PCP 02/06/23 Alissa Perez PA-C [address] [place] [address] Physician [facility] Surgery 09/04/23 Lakshmi Wilhelm PA-C [address] [place] [address] Physician [facility] Urology 09/16/23 Aidee Valero PA-C [address] [place] [address] 931795 Assigned Musculoskeletal Provider 04/17/24 Tanisha Marlow 4120 [facility] [address] 03/30/24 documented as of this encounter
--- OUTSIDE RECORDS SUMMARY | 2024-07-18 22:47 | XMS_ITS | Encounter Summary ---
Author Organization [place] Address [address] [place] [address] Care Team Providers Care Doughnut Fryer Name Role Phone Carlos Joyner MD Unavailable [phone] Jadon Murray MD Unavailable [phone] Maru Villagomez RN Unavailable Unavailable Ignacia Duran MD Primary Care Provider Ang Slade MD Unavailable Carlos Joyner MD Unavailable +[phone] Annalise Orta PA-C Unavailable Ang Slade MD Unavailable [phone] Lakshmi Wilhelm-C Unavailable [phone] Heladio Willoughby MD Primary Care Provider [phone] Heladio Willoughby MD Unavailable Alissa Perez PA-C Unavailable [phone] Lakshmi Wilhelm PA-C Unavailable Aidee Valero PA-C Unavailable Encounter Details Date Type Department Care Team (Late st Contact Info) Description 12/18/2021 [facility] Urology Clinic [address] [place] [address] Carlos Joyner MD [address] [place] [address] Social History Tobacco Use Types Packs/Day [...] Upcoming Encounters Date Type Department Care Team ([facility] st Contact Info) Description 07/21/2024 4:00 PM METHODS TIME ANALYST Office Visit [facility] [address] [place] [phone] [place] [address] [place], [place] 4393668 09/07/2024 8:30 AM CDT Virtual Visit [facility] Urology Clinic [address] [phone] Carlos Joyner MD [address] [place] [address] 881335 09/20/2024 11:00 AM CDT Office Visit [facility] Sleep Center [address] [phone] Sugey Mccoy, QUARRYING MANAGER [address] [address] documented as of this encounter Visit Diagnoses Not on filedocumented in this encounter Additional Health Concerns Infection Onset Date Last Indicated Resolved Time MRSA Comment:Added from external infection. Pt has had Staph infections but never MRSA from Care everywhere chart review. Removing MRSA 9.14.23 06/17/2019 02/06/2023 9:41 AM C DT documented as of this encounter Care Teams Doughnut Fryer Relationship Specialty Start Date End Date Ignacia Duran MD PCP - General Pediatrics 01/20/20 03/04/23 [place] [address] [place] [address] PCP - General 03/05/23 Carlos Joyner MD [address] [place] [address] 062385 Urology 12/09/19 Jadon Murray MD [facility] [address] [address] Referring Physician Pediatric Surgery 12/09/19 Maru Villagomez, RN Registered Nurse 12/10/19 Ang Slade MD [address] [place] [address] Urology 04/24/20 Carlos Joyner MD [address] [place] [address] Assigned Surgical Provider 12/24/20 Annalise Orta PA-C 5200 [place] [address] Assigned Cancer Care Provider 05/13/21 11/01/22 Ang Slade MD [address] [address] Urology 12/18/22 Lakshmi Wilhelm PA-C [address] [place] [address] 722365 Physician Industrial Maintenance Electrician Urology 02/03/23 [place] [address] [facility] [place] [address] Assigned PCP 02/06/23 Alissa Perez PA-C [address] [place] [address]222 Physician Industrial Maintenance Electrician Surgery 09/04/23 Lakshmi Wilhelm PA-C [address] [place] [address] Physician Industrial Maintenance Electrician Urology 09/16/23 Aidee Valero PA-C [address] [place] [address] 896235 Assigned Musculoskeletal Provider 04/17/24 Tanisha Marlow 4120 [place] [address] 03/30/24 documented as of this encounter
--- OUTSIDE RECORDS SUMMARY | 2024-07-18 22:47 | XMS_ITS | Encounter Summary ---
Author Organization [facility] Address [address] [place] [address] Care Team Providers Care Molecular Spectroscopist Name Role Phone Carlos Joyner MD Unavailable [phone] Jadon Murray MD Unavailable + [phone] Maru Villagomez RN Unavailable Unavailable Ignacia Duran MD Primary Care Provider [phone] Ang Slade MD Unavailable [phone] Carlos Joyner MD Unavailable [phone] Ang Slade MD Unavailable [phone] Lakshmi Wilhelm-C Unavailable [phone] Heladio Willoughby MD Primary Care Provider [phone] Heladio Willoughby MD Unavailable Alissa Perez PA-C Unavailable [phone] Lakshmi Wilhelm-C Unavailable [phone] Aidee Valero PA-C Unavailable [phone] Encounter Details Date Type Department Care Team (Late st Contact Info) Description 01/06/2023 [facility] [address] [address] Lisette Mariee Social History Tobacco [...] st Contact Info) Description 07/21/2024 4:00 PM WEB PUBLISHER Office Visit [facility] [address] [place] [address] [place] [address] [place] [address] 09/07/2024 8:30 AM CDT Virtual Visit [facility] Urology Clinic [address] [place] [phone] Carlos Joyner MD [address] [place] [address] 17828455 09/20/2024 11:00 AM CDT Office Visit [facility] [address] [phone] Sugey Mccoy, FINISHER [employer] [address] 256424 documented as of this encounter Visit Diagnoses Not on filedocumented in this encounter Additional Health Concerns Infection Onset Date Last Indicated Resolved Time MRSA Comment:Added from external infection. Pt has had Staph infections but never MRSA from Care everywhere chart review. Removing MRSA .14.06/17/2019 02/06/2023 9:41 AM C DT documented as of this encounter Care Teams Molecular Spectroscopist Relationship Specialty Start Date End Date Ignacia Duran MD PCP - General Pediatrics 01/20/20 03/04/23 [place] [address] [place] [address] PCP - General 03/05/23 Carlos Joyner MD [address] [place] [address] Urology 12/09/19 Jadon Murray MD [facility] [address] [address] Referring Physician Pediatric Surgery 12/09/19 Maru Villagomez, OTILIO Registered Nurse 12/10/19 Ang Slade MD [address] [place] [address] Urology 04/24/20 Carlos Joyner MD [address] [place] [address]46 Assigned Surgical Provider 12/24/20 Ang Slade MD [address] [place] [address] Urology 12/18/22 Lakshmi Wilhelm PA-C [address] [place] [address] 874645 Physician Elementary Summer School Teacher Urology 02/03/23 [place] [address] [place] [address] Assigned PCP 02/06/23 Alissa Perez PA-C [address] [place] [address] 334645 Physician Elementary Summer School Teacher Surgery 09/04/23 Lakshmi Wilhelm PA-C [address] [place] [address] 879135 Physician Elementary Summer School Teacher Urology 09/16/23 Aidee Valero PA-C [address] [place] [address] 164725 Assigned Musculoskeletal Provider 04/17/24 Tanisha Marlow 4120 [facility] [address] 03/30/24 documented as of this encounter
--- OUTSIDE RECORDS SUMMARY | 2024-07-18 22:47 | XMS_ITS | Encounter Summary ---
Author Organization [facility] Address [address] [place] [address]. [place] [address] Care Team Providers Care Mechanical Handyman Name Role Phone Carlos Joyner MD Unavailable [phone] Jadon Murray MD Unavailable [phone] Maru Villagomez RN Unavailable Unavailable Ang Slade MD Unavailable [phone] Carlos Joyner MD Unavailable +[phone] Ang Slade MD Unavailable [phone] Lakshmi Wilhelm PA-C Unavailable [phone] Heladio Willoughby MD Primary Care Provider [phone] Heladio Willoughby MD Unavailable Alissa Perez PA-C Unavailable [phone] Lakshmi Wilhelm PA-C Unavailable [phone] Aidee Valero PA-C Unavailable [phone] Encounter Details Date Type Department Care Team (Late st Contact Info) Description 04/08/2023 [facility] Medical Advice [facility] Urology Clinic [address] [place] [address] Rosita Velasco, RN Social History [...] in an overnight custodial, or couch-surfing.) Yes 04/11/2023 Are you worried [...] st Contact Info) Description 07/21/2024 4:00 PM SLICE CUTTING MACHINE OPERATOR Office Visit [facility] [address] [place] [address] [place] [address] [place], [place] [phone] 09/07/2024 8:30 AM CDT Virtual Visit [facility] Urology Clinic [address] [address] Carlos Joyner MD [address] [place] [address] [phone] 09/20/2024 11:00 AM CDT Office Visit [facility] [address] [place] [address] Sugey Mccoy, GRANITE SANDBLASTER APPRENTICE LUGGAGE MAKER [address] [place] [address] [address] [place] [address] documented as of this encounter Visit Diagnoses Not on filedocumented in this encounter Care Teams Mechanical Handyman Relationship Specialty Start [place] [address] [place] [address] PCP - General 03/05/23 Carlos Joyner MD [address] [place] [address] Urology 12/09/19 Jadon Murray MD [facility] 2530 [facility] [address] [place] [address] Referring Physician Pediatric Surgery 12/09/19 Maru Villagomez, OTILIO Registered Nurse 12/10/19 Ang Slade MD [address] [address] Urology 04/24/20 Carlos Joyner MD [address] [place] [address] Assigned Surgical Provider 12/24/20 Ang Slade MD [address] [address] Urology 12/18/22 Lakshmi Wilhelm PA-C [address] [place] [address] 273275 Physician Equipment Operator/Laborer/Supervisor Urology 02/03/23 [place] [address] [place] [address] Assigned PCP 02/06/23 Alissa Perez PA-C [address] [place] [address] 681085 Physician Equipment Operator/Laborer/Supervisor Surgery 09/04/23 Lakshmi Wilhelm PA-C [address] [place] [address] 934885 Physician Equipment Operator/Laborer/Supervisor Urology 09/16/23 Aidee Valero PA-C [address] [place] [address] 984995 Assigned Musculoskeletal Provider 04/17/24 Tanisha Marolw 4120 [facility] [address] 03/30/24 documented as of this encounter
--- OUTSIDE RECORDS SUMMARY | 2024-07-18 22:47 | XMS_ITS | Encounter Summary ---
Author Organization [place] Address [address] [place] [address] Care Team Providers Care Cement Cutter Name Role Phone Carlos Joyner MD Unavailable [phone] Jadon Murray MD Unavailable [phone] Maru Villagomez RN Unavailable Unavailable Ignacia Duran MD Primary Care Provider Ang Slade MD Unavailable +[phone] Carlos Joyner MD Unavailable +[phone] Annalise Orta PA-C Unavailable +[phone] Ang Slade MD Unavailable +[phone] Lakshmi Wilhelm-C Unavailable [phone] Heladio Willoughby MD Primary Care Provider [phone] Heladio Willoughby MD Unavailable Alissa Perez PA-C Unavailable [phone] Lakshmi Wilhelm PA-C Unavailable [phone] Aidee Valero PA-C Unavailable [phone] Encounter Details Date Type Department Care Team (Late st Contact Info) Description 11/14/2021 [facility] Urology Clinic [address] [place] [address] Analisa Palacio, RN Social History [...] st Contact Info) Description 07/21/2024 4:00 PM EX CHEF Office Visit [facility] [address] [place] [address] [place] [address] [place] [address] 09/07/2024 8:30 AM CDT Virtual Visit [facility] Urology Clinic [address] [place] [phone] Carlos Joyner MD [address] [place] [address] 73807455 09/20/2024 11:00 AM CDT Office Visit [facility] [address] [phone] Sugey Mccoy, MEDICAL BILLING SERVICE [address] 958824 documented as of this encounter Visit Diagnoses Not on filedocumented in this encounter Additional Health Concerns Infection Onset Date Last Indicated Resolved Time MRSA Comment:Added from external infection. Pt has had Staph infections but never MRSA from Care everywhere chart review. Removing MRSA 9.14.23 06/17/2019 02/06/2023 9:41 AM C DT documented as of this encounter Care Teams Cement Cutter Relationship Specialty Start Date End Date Ignacia Duran MD PCP - General Pediatrics 01/20/20 03/04/23 [place] [address] [facility] [place] [place] [address] PCP - General 03/05/23 Carlos Joyner MD [address] [place] [address] Urology 12/09/19 Jadon Murray MD [facility] [address] [address] Referring Physician Pediatric Surgery 12/09/19 Maru Villagomez, RN Registered Nurse 12/10/19 Ang Slade MD [address] 429975 Urology 04/24/20 Carlos Joyner MD [address] [place] [address] Assigned Surgical Provider 12/24/20 Annalise Orta PA-C 5200 [place] [address] Assigned Cancer Care Provider 05/13/21 11/01/22 Ang Slade MD [address] [address] Urology 12/18/22 Lakshmi Wilhelm PA-C [address] [place] [address] Physician Linen Manager Urology 02/03/23 [place] [address] [place] [address] Assigned PCP 02/06/23 Alissa Perez PA-C [address] [place] [address] Physician Linen Manager Surgery 09/04/23 Lakshmi Wilhelm PA-C [address] [place] [address] 72063 Physician Linen Manager Urology 09/16/23 Aidee Valero PA-C [address] [place] [address] Assigned Musculoskeletal Provider 04/17/24 Tanisha Marlow 4120 [facility] [address] 03/30/24 documented as of this encounter
--- OUTSIDE RECORDS SUMMARY | 2024-07-18 22:47 | XMS_ITS | Encounter Summary ---
Author Organization [facility] Address [address] [place] [address] Care Team Providers Care Barrel Scraper Name Role Phone Carlos Joyner MD Unavailable [phone] Jadon Murray MD Unavailable [phone] Maru Villagomez RN Unavailable Unavailable Ang Slade MD Unavailable [phone] Carlos Joyner MD Unavailable [phone] Ang Slade MD Unavailable +[phone] Lakshmi Wilhelm PA-C Unavailable [phone] Heladio Willoughby MD Primary Care Provider [phone] Heladio Willoughby MD Unavailable Alissa Perez PA-C Unavailable [phone] Lakshmi Wilhelm-C Unavailable [phone] Aidee Valero PA-C Unavailable [phone] Encounter Details Date Type Department Care Team (Late st Contact Info) Description 06/15/2024 [facility] [address] [place] [address] Sarika Calhoun MA Social History [...] st Contact Info) Description 07/21/2024 4:00 PM DEICER KIT ASSEMBLER Office Visit [facility] [address] [place] [address] [place] [address] [place], [place] 2199668 09/07/2024 8:30 AM CDT Virtual Visit [facility] Urology Clinic [address] [address] Carlos Joyner MD [address] [place] [address] 904455 09/20/2024 11:00 AM CDT Office Visit [facility] [address] [place] [phone] Sugey Mccoy, ELECTRIC MOTOR ANALYST [facility] [address] [place], [place] [address]E S [address] [place], [place] 944404 documented as of this encounter Visit Diagnoses Not on filedocumented in this encounter Care Teams Barrel Scraper Relationship Specialty Start [place] [address] [place] [address] PCP - General 03/05/23 Carlos Joyner MD [address] [place] [address]846 Urology 12/09/19 Jadon Murray MD [facility] 2530 [facility] [address] [place] [address] Referring Physician Pediatric Surgery 12/09/19 Maru Villagomez, OTILIO Registered Nurse 12/10/19 Ang Slade MD [address] [place] [address] Urology 04/24/20 Carlos Joyner MD [address] [place] [address] Assigned Surgical Provider 12/24/20 Ang Slade MD [address] [address] Urology 12/18/22 Lakshmi Wilhelm PA-C [address] [place] [address] 897185 Physician Link Trainer Teacher Urology 02/03/23 [place] [address] [place] [address] Assigned PCP 02/06/23 Alissa Perez PA-C [address] [place] [address] 429805 Physician Link Trainer Teacher Surgery 09/04/23 Lakshmi Wilhelm PA-C [address] [place] [address] 492675 Physician Link Trainer Teacher Urology 09/16/23 Aidee Valero PA-C 909 [place], [place] 838575 Assigned Musculoskeletal Provider 04/17/24 Tanisha Marlow 4120 [facility] [address] 03/30/24 documented as of this encounter
--- OUTSIDE RECORDS SUMMARY | 2024-07-18 22:47 | XMS_ITS | Encounter Summary ---
Author Organization [facility] Address [address] [place] [address]. [place] [address] Care Team Providers Care Bander Hand Name Role Phone Carlos Joyner MD Unavailable [phone] Jadon Murray MD Unavailable [phone] Maru Villagomez RN Unavailable Unavailable Ang Slade MD Unavailable +[phone] Carlos Joyner MD Unavailable +[phone] Ang Slade MD Unavailable [phone] Lakshmi Wilhelm PA-C Unavailable [phone] Heladio Willoughby MD Primary Care Provider [phone] Heladio Willoughby MD Unavailable Alissa Perez PA-C Unavailable [phone] Lakshmi Wilhelm-C Unavailable [phone] Aidee Valero PA-C Unavailable [phone] Encounter Details Date Type Department Care Team (Late st Contact Info) Description 07/09/2024 [facility] [address] [place] [address] Hattie Wing, RN Social History [...] st Contact Info) Description 07/21/2024 4:00 PM TOP DYEING MACHINE TENDER Office Visit [facility] [address] [place] [address] [place] [address] [place] [address] 09/07/2024 8:30 AM CDT Virtual Visit [facility] [address] [address] Carlos Joyner MD [address] [place] [address] 502675 09/20/2024 11:00 AM CDT Office Visit [facility] [address] [place] [phone] Sugey Mccoy, BRINE PLANT OPERATOR FACE PAINTER [address] [place] [address] [address] [place] [address] documented as of this encounter Visit Diagnoses Not on filedocumented in this encounter Care Teams Bander Hand Relationship Specialty Start [place] [address] [place] [address] PCP - General 03/05/23 Carlos Joyner MD [address] [place] [address] Urology 12/09/19 Jadon Murray MD [facility] 2530 [facility] [address] [place] [address] Referring Physician Pediatric Surgery 12/09/19 Maru Villagomez, OTILIO Registered Nurse 12/10/19 Ang Slade MD [address] [address] Urology 04/24/20 Carlos Joyner MD [address] [place] [address] Assigned Surgical Provider 12/24/20 Ang Slade MD [address] [address] Urology 12/18/22 Lakshmi Wilhelm PA-C [address] [place] [address] 635375 Physician Associate Data Scientist Urology 02/03/23 [place] [address] [place] [address] Assigned PCP 02/06/23 Alissa Perez PA-C [address] [place] [address] 516245 Physician Associate Data Scientist Surgery 09/04/23 Lakshmi Wilhelm PA-C [address] [place] [address] 367295 Physician Associate Data Scientist Urology 09/16/23 Aidee Valero PA-C [address] [place] [address] 809355 Assigned Musculoskeletal Provider 04/17/24 Tanisha Marlow 4120 [facility] [address] 03/30/24 documented as of this encounter
--- OUTSIDE RECORDS SUMMARY | 2024-07-18 22:47 | XMS_ITS | Encounter Summary ---
Author Organization [facility] Address [address] [place] [address] Care Team Providers Care Sports Announcer Name Role Phone Carlos Joyner MD Unavailable [phone] Jadon Murray MD Unavailable [phone] Maru Villagomez RN Unavailable Unavailable Ang Slade MD Unavailable [phone] Carlos Joyner MD Unavailable +[phone] Ang Slade MD Unavailable +[phone] Lakshmi Wilhelm PA-C Unavailable [phone] Heladio Willoughby MD Primary Care Provider [phone] Heladio Willoughby MD Unavailable Alissa Perez PA-C Unavailable [phone] Lakshmi Wilhelm PA-C Unavailable [phone] Aidee Valero PA-C Unavailable [phone] Encounter Details Date Type Department Care Team (Late st Contact Info) Description 06/23/2024 [facility] [address] [place] [address] Carlos Joyner MD [address] [place] [address] Social History Tobacco Use Types Packs/Day [...] st Contact Info) Description 07/21/2024 4:00 PM EDUCATION SUPERVISOR Office Visit [facility] [address] [place] [address] [place] [address] [place] [address] 09/07/2024 8:30 AM CDT Virtual Visit [facility] Urology Clinic [address] [place] [address] Carlos Joyner MD [address] [place] [address] 09/20/2024 11:00 AM CDT Office Visit [facility] [address], [place] [phone] Sugey Mccoy, SEAT MENDER UNDER SHERIFF [address] [place], [place] 3[address] documented as of this encounter Visit Diagnoses Not on filedocumented in this encounter Care Teams Sports Announcer Relationship Specialty Start [place] [address] [place] [address] PCP - General 03/05/23 Carlos Joyner MD [address] [place] [address] 149825 Urology 12/09/19 Jadon Murray MD [facility] 2530 [facility] [address] [place], [place] [phone] Referring Physician Pediatric Surgery 12/09/19 Maru Villagomez, RN Registered Nurse 12/10/19 Ang Slade MD [address] [place] [address] 394 [place] [address] Urology 04/24/20 Carlos Joyner MD [address] [place] [address] 880835 Assigned Surgical Provider 12/24/20 Ang Slade MD [address] [place] [address] 394 [place] [address] Urology 12/18/22 Lakshmi Wilhelm PA-C [address] [place] [address] 720705 Physician Trimmer Operator Three Knife Urology 02/03/23 [place] [address] [facility] [place] [address] Assigned PCP 02/06/23 Alissa Perez PA-C [address] [place] [address] 374175 Physician Trimmer Operator Three Knife Surgery 09/04/23 Lakshmi Wilhelm PA-C [address] [place] [address] 415555 Physician Trimmer Operator Three Knife Urology 09/16/23 Aidee Valero PA-C [address] [place] [address] 731635 Assigned Musculoskeletal Provider 04/17/24 Tanisha Marlow 4120 [facility] [address] 03/30/24 documented as of this encounter
--- OUTSIDE RECORDS SUMMARY | 2024-07-18 22:48 | XMS_ITS | Encounter Summary ---
Author Organization [facility] Address [address] [place] [address] Care Team Providers Care Semiconductor Wafers Etch Operator Name Role Phone Carlos Joyner MD Unavailable [phone] Jadon Murray MD Unavailable [phone] Maru Villagomez RN Unavailable Unavailable Ang Slade MD Unavailable [phone] Carlos Joyner MD Unavailable [phone] Ang Slade MD Unavailable [phone] Lakshmi WilhelmC Unavailable [phone] Heladio Willoughby MD Primary Care Provider [phone] Heladio Willoughby MD Unavailable Alissa Perez PA-C Unavailable [phone] Lakshmi WilhelmC Unavailable [phone] Aidee ValeroC Unavailable [phone] Encounter Details Date Type Department Care Team (Late st Contact Info) Description 04/01/2024 [facility] [address] [place] [address] Aidee Valero PA-C [address] [place] [address] Social History Tobacco Use Types Packs/Day [...] st Contact Info) Description 07/21/2024 4:00 PM BRICK YARD HAND Office Visit [facility] [address] [place] [address] [place] [address] [place] [address] 09/07/2024 8:30 AM CDT Virtual Visit [facility] Urology [address] [place] [address] Carlos Joyner MD [address] [place] [address] 156105 09/20/2024 11:00 AM CDT Office Visit [facility] [address] [place] [phone] Sugey Mccoy, QUALITATIVE EXECUTIVE RESEARCHER [facility] [address] [address] [place], [place] [address] documented as of this encounter Visit Diagnoses Not on filedocumented in this encounter Care Teams Semiconductor Wafers Etch Operator Relationship Specialty Start [place] [address] [place], [place] 8621668 PCP - General 03/05/23 Carlos Joyner MD [address] [place] [address] 084105 Urology 12/09/19 Jadon Murray MD [facility] [address] [facility] [address] [place], [place] [id number] Referring Physician Pediatric Surgery 12/09/19 Maru Villagomez, RN Registered Nurse 12/10/19 Ang Slade MD [address] [place] [address] 394 [place] [address] Urology 04/24/20 Carlos Joyner MD [address] [place] [address] 137865 Assigned Surgical Provider 12/24/20 Ang Slade MD [address] [place] [address] 394 [place] [address] Urology 12/18/22 Lakshmi Wilhelm PA-C [address] [place] [address] 411755 Physician Leaded Glass Installer Urology 02/03/23 [place] [address] [facility] [place] [address] Assigned PCP 02/06/23 Alissa Perez PA-C [address] [place] [address] 823225 Physician Leaded Glass Installer Surgery 09/04/23 Lakshmi Wilhelm PA-C [address] [place] [address] 504715 Physician Leaded Glass Installer Urology 09/16/23 Aidee Valero PA-C [address] [place] [address] 747775 Assigned Musculoskeletal Provider 04/17/24 Tanisha Marlow 4120 [facility] [address] 03/30/24 documented as of this encounter
--- OUTSIDE RECORDS SUMMARY | 2024-07-18 22:48 | XMS_ITS | Encounter Summary ---
Author Organization [facility] Address [address] [place] [address]. [place] [address] Care Team Providers Care Repeater Operator Name Role Phone Carlos Joyner MD Unavailable [phone] Jadon Murray MD Unavailable [phone] Maru Villagomez RN Unavailable Unavailable Ang Slade MD Unavailable [phone] Carlos Joyner MD Unavailable [phone] Ang Slade MD Unavailable [phone] Lakshmi Wilhelm-C Unavailable [phone] Heladio Willoughby MD Primary Care Provider [phone] Heladio Willoughby MD Unavailable Alissa Perez PA-C Unavailable [phone] Lakshmi Wilhelm-C Unavailable [phone] Aidee Valero PA-C Unavailable [phone] Reason for Visit * Reason Onset Date Comments Forms 02/06/2024 [facility] [employer] - Medication Authorization Form Encounter Details Date Type Department Care Team (Late st Contact Info) Description 02/06/2024 [facility] [address] [place] [address] [place] [address] [place] [address] Forms ([facility] Education Rail Setter... Social History Tobacco Use Types Packs/Day Years [...] Authorization Form Who is the form from? [facility] [employer] [facility] (if other please explain) Where did/will the form come from? form was sent via [employer] When is form/letter needed by: [facility] How would you like the form/letter returned: [employer] Printed forms and placed in provider's basket for review and signature Kasia Gutierrez Lead Talent Acquisition Operations Manager [facility] documented in this encounter Plan of Treatment Upcoming Encounters Date Type Department Care Team (Late st Contact Info) Description 07/21/2024 4:00 PM SOAKER HELPER Office Visit [facility] [address] [place] [phone] [place] [address] [place] [address] 09/07/2024 8:30 AM CDT Virtual Visit [facility] Urology Clinic [address] [place] [address] Carlos Joyner MD [address] [place] [address] 165955 09/20/2024 11:00 AM CDT Office Visit [facility] [place] [address] [place] [phone] Sugey Mccoy, ACADEMIC ADVISEMENT DIRECTOR [address] [place], [place] [address] documented as of this encounter Visit Diagnoses Not on filedocumented in this encounter Care Teams Repeater Operator Relationship Specialty Start [place] [address] [place] [address] PCP - General 03/05/23 Carlos Joyner MD [address] [place] [address] 199375 Urology 12/09/19 Jadon Murray MD [facility] [address] [address] Referring Physician Pediatric Surgery 12/09/19 Maru Villagomez, RN Registered Nurse 12/10/19 Ang Slade MD [address] [place] [address] Urology 04/24/20 Carlos Joyner MD [address] [place] [address] 491305 Assigned Surgical Provider 12/24/20 Ang Slade MD [address] [place] [address] Urology 12/18/22 Lakshmi Wilhelm PA-C [address] [place] [address] 951445 Physician Galley Worker Urology 02/03/23 [place] [address] [place] [address] Assigned PCP 02/06/23 Ailssa Perez PA-C [address] [place] [address] 940765 Physician Galley Worker Surgery 09/04/23 Lakshmi Wilhelm PA-C [address] [place] [address] 628105 Physician Galley Worker Urology 09/16/23 Aidee Valero PA-C [address] [place] [address] 536465 Assigned Musculoskeletal Provider 04/17/24 Tanisha Marlow 4120 [facility] [address] 03/30/24 documented as of this encounter
--- OUTSIDE RECORDS SUMMARY | 2024-07-18 22:48 | XMS_ITS | Clinical Summary ---
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 Resolved Problems Problem Noted Date Diagnosed Date Resolved Date Adjustment disorder with mix ed disturbance of emotions and conduct 07/04/2011 11/23/2018 Immunizations Name Administration Dates Next Due DTaP 01/18/2008,05/06/2005 [id number] (Pediarix) 05/27/2003,03/21/2003,0 2002 HIB PRP-T (ActHIB,Hiberix) 05/27/2003,03/21/2003 [...] on file Legal Sex Female 6:29 AM JAR CAPPER Gender Identity Not on file Sexual Orientation [...] Comments Blood Pressure 123/80 07/12/2021 1:30 PM JAR CAPPER Pulse 98 07/12/2021 1:30 PM JAR CAPPER Temperature 36.9 C (98.5 F) 07/12/2021 1:30 PM JAR CAPPER Respiratory Rate 18 07/03/2015 5:27 PM JAR CAPPER Oxygen Saturation 98% 07/12/2021 1:30 PM JAR CAPPER Inhaled Oxygen Concentration - - Weight 61.2 kg (135 lb) 07/03/2015 5:27 PM JAR CAPPER Height - - Body Mass Index - [...] age 11-21 Completed 06/17/2019, 01/16/2015 Insurance MEDICAID [facility] MEDICARE PART A HB ONLY MEDICARE PART B HB ONLY MEDICARE PB ONLY MEDICAID [facility] [place] [address] [id number] [place] [address] Advance Directives Documents on File Type Date Recorded Patient Admissions Recruiter Expl anation Power of Reinforcing Steel Placer 06/24/2023 1:00 PM Care Teams Filter Worker Relationship Specialty Start Date End Date Ignacia Duran MD PCP - General Pediatric 10/07/19
--- OUTSIDE RECORDS SUMMARY | 2024-07-18 22:48 | XMS_ITS | Encounter Summary ---
Author Organization [facility] Address [address] [place] [address] Care Team Providers Care Block Captain Name Role Phone Carlos Joyner MD Unavailable [phone] Jadon Murray MD Unavailable [phone] Maru Villagomez RN Unavailable Unavailable Ignacia Duran MD Primary Care Provider Ang Slade MD Unavailable [phone] Carlos Joyner MD Unavailable +[phone] Annalise Orta PA-C Unavailable +[phone] Ang Slade MD Unavailable +[phone] Lakshmi Wilhelm-C Unavailable [phone] Heladio Willoughby MD Primary Care Provider [phone] Heladio Willoughby MD Unavailable Alissa Perez PA-C Unavailable [phone] Lakshmi Wilhelm PA-C Unavailable [phone] Aidee Valero PA-C Unavailable [phone] Encounter Details Date Type Department Care Team (Late st Contact Info) Description 10/02/2021 [facility] [address] [place] [address] Analisa Palacio, RN Social History [...] st Contact Info) Description 07/21/2024 4:00 PM YARN SALVAGER Office Visit [facility] [address] [place] [phone] [place] [address] [place], [place] 2984868 09/07/2024 8:30 AM CDT Virtual Visit [facility] Clinic [address] [place] [phone] Carlos Joyner MD [address] [place], [place] 29[address] 09/20/2024 11:00 AM CDT Office Visit [facility] [address] [phone] Sugey Mccoy, BICYCLE REPAIR TECHNICIAN [address] [place] [address] documented as of this encounter Visit Diagnoses Not on filedocumented in this encounter Additional Health Concerns Infection Onset Date Last Indicated Resolved Time MRSA Comment:Added from external infection. Pt has had Staph infections but never MRSA from Care everywhere chart review. Removing MRSA 9.14.23 06/17/2019 02/06/2023 9:41 AM C DT documented as of this encounter Care Teams Block Captain Relationship Specialty Start Date End Date Ignacia Duran MD PCP - General Pediatrics 01/20/20 03/04/23 [place] [address] [place] [address] PCP - General 03/05/23 Carlos Joyner MD [address] [place] [address] Urology 12/09/19 Jadon Murray MD [facility] [address] [address] Referring Physician Pediatric Surgery 12/09/19 Maru Villagomez, RN Registered Nurse 12/10/19 Ang Slade MD [address] [address] Urology 04/24/20 Carlos Joyner MD [address] [place] [address] Assigned Surgical Provider 12/24/20 Annalise Orta PA-C 5200 [place] [address] Assigned Cancer Care Provider 05/13/21 11/01/22 Ang Slade MD [address] [address] Urology 12/18/22 Lakshmi Wilhelm PA-C [address] [place] [address] Physician First Officer Urology 02/03/23 [place] [address] [place] [address] Assigned PCP 02/06/23 Alissa Perez PA-C [address] [place] [address] Physician First Officer Surgery 09/04/23 Lakshmi Wilhelm PA-C [address] [place] [address] Physician First Officer Urology 09/16/23 Aidee Valero PA-C [address] [place] [address] 154075 Assigned Musculoskeletal Provider 04/17/24 Tanisha Marlow 4120 [facility] [address] 03/30/24 documented as of this encounter
--- OUTSIDE RECORDS SUMMARY | 2024-07-18 22:48 | XMS_ITS | Encounter Summary ---
Author Organization [facility] Address [address] [place] [address] Care Team Providers Care Windows Systems Admin Name Role Phone Carlos Joyner MD Unavailable +[phone] Jadon Murray MD Unavailable [phone] Maru Villagomez RN Unavailable Unavailable Ignacia Duran MD Primary Care Provider Ang Slade MD Unavailable [phone] Carlos Joyner MD Unavailable [phone] Annalise Orta-C Unavailable [phone] Ang Slade MD Unavailable [phone] Lakshmi Wilhelm-C Unavailable [phone] Heladio Willoughby MD Primary Care Provider Heladio Willoughby MD Unavailable Alissa Perez PA-C Unavailable [phone] Lakshmi Wilhelm-C Unavailable Aidee Valero PA-C Unavailable Encounter Details Date Type Department Care Team (Late st Contact Info) Description 10/12/2021 Ifeanyi Peck [facility] Preoperative Assessment Center [address] 5th [place] [address] Tanisha Coe PA-C [address] [place] [address] Social History Tobacco Use Types Packs/Day [...] Contact Info) Description 07/21/2024 4:00 PM SUPERVISOR TRUST ACCOUNTS Office Visit [facility] [address] [place] [address] [place] [address] [place], [place] [phone] 09/07/2024 8:30 AM CDT Virtual Visit [facility] Urology Clinic [address] [phone] Carlos Joyner MD [address] [place] [address] 784735 09/20/2024 11:00 AM CDT Office Visit [facility] Center [address] [phone] Sugey Mccoy, BAR STEWARD [address] [address] documented as of this encounter Visit Diagnoses Not on filedocumented in this encounter Additional Health Concerns Infection Onset Date Last Indicated Resolved Time MRSA Comment:Added from external infection. Pt has had Staph infections but never MRSA from Care everywhere chart review. Removing MRSA 02.06.23 06/17/2019 02/06/2023 9:41 AM C DT documented as of this encounter Care Teams Windows Systems Admin Relationship Specialty Start Date End Date Ignacia Duran MD PCP - General Pediatrics 01/20/20 03/04/23 [place] [address] [facility] [place] [address] PCP - General 03/05/23 Carlos Joyner MD [address] [place] [address] Urology 12/09/19 Jadon Murray MD [facility] [address] [address] Referring Physician Pediatric Surgery 12/09/19 Maru Villagomez, RN Registered Nurse 12/10/19 Ang Slade MD [address] [place] [address] Urology 04/24/20 Carlos Joyner MD [address] [place] [address] Assigned Surgical Provider 12/24/20 Annalise Orta PA-C 5200 [place] [address] Assigned Cancer Care Provider 05/13/21 11/01/22 Ang Slade MD [address] [place] [address] Urology 12/18/22 Lakshmi Wilhelm PA-C [address] [place] [address] Physician Transport Engineer Urology 02/03/23 [place] [address] [place] [address] Assigned PCP 02/06/23 Alissa Perez PA-C [address] [place] [address] 289295 Physician Transport Engineer Surgery 09/04/23 Lakshmi Wilhelm PA-C [address] [place] [address] 088935 Physician Transport Engineer Urology 09/16/23 Aidee Valero PA-C [address] [place] [address] 492835 Assigned Musculoskeletal Provider 04/17/24 Tanisha Marlow 4120 [facility] [place] [address] 03/30/24 documented as of this encounter
--- OUTSIDE RECORDS SUMMARY | 2024-07-18 22:48 | XMS_ITS | Encounter Summary ---
Author Organization [facility] Address [address] [place] [address] 34765 Care Team Providers Care Global Marketing Coordinator Name Role Phone Carlos Joyner MD Unavailable [phone] Jadon Murray MD Unavailable [phone] Maru Villagomez RN Unavailable Unavailable Ignacia Duran MD Primary Care Provider Ang Slade MD Unavailable Carlos Joyner MD Unavailable [phone] Annalise Orta PA-C Unavailable Ang Slade MD Unavailable +[phone] Lakshmi Wilhelm-C Unavailable [phone] Heladio Willoughby MD Primary Care Provider Heladio Willoughby MD Unavailable Alissa Perez PA-C Unavailable [phone] Lakshmi Wilhelm PA-C Unavailable Aidee Valero PA-C Unavailable Encounter Details Date Type Department Care Team (Late st Contact Info) Description 10/01/2021 [facility] Urology Clinic [address] [place] [address] Carlos Joyner MD [address] [place] [address] Social History Tobacco Use Types Packs/Day [...] st Contact Info) Description 07/21/2024 4:00 PM RETAIL SHIFT MANAGER Office Visit [facility] [address] [place] [address] [place] [address] [place], [place] [phone] 09/07/2024 8:30 AM CDT Virtual Visit [facility] [address] [phone] Carlos Joyner MD [address] [place] [address] 967145 09/20/2024 11:00 AM CDT Office Visit [facility] [address] [phone] Sugey Mccoy, PURSE SEINER [address] 233504 documented as of this encounter Visit Diagnoses Not on filedocumented in this encounter Additional Health Concerns Infection Onset Date Last Indicated Resolved Time MRSA Comment:Added from external infection. Pt has had Staph infections but never MRSA from Care everywhere chart review. Removing MRSA 02.06.23 06/17/2019 02/06/2023 9:41 AM C DT documented as of this encounter Care Teams Global Marketing Coordinator Relationship Specialty Start Date End Date Ignacia Duran MD PCP - General Pediatrics 01/20/20 03/04/23 [place] [address] [facility] [place] [address] PCP - General 03/05/23 Carlos Joyner MD [address] [place] [address]605 Urology 12/09/19 Jadon Murray MD [facility] [address] [address] Referring Physician Pediatric Surgery 12/09/19 Maru Villagomez, OTILIO Registered Nurse 12/10/19 Ang Slade MD [address] [place] [address] Urology 04/24/20 Carlos Joyner MD [address] [place] [address] 29749 Assigned Surgical Provider 12/24/20 Annalise Orta PA-C [address] [place] [address] Assigned Cancer Care Provider 05/13/21 11/01/22 Ang Slade MD [address] [place] [address] Urology 12/18/22 Lakshmi Wilhelm PA-C [address] [place] [address]45 Physician Film Sound Coordinator Urology 02/03/23 [place] [address] [place] [address] Assigned PCP 02/06/23 Alissa Perez PA-C [address] [place] [address] 027715 Physician Film Sound Coordinator Surgery 09/04/23 Lakshmi Wilhelm PA-C [address] [place] [address] 962895 Physician Film Sound Coordinator Urology 09/16/23 Aidee Valero PA-C [address] [place] [address] 762335 Assigned Musculoskeletal Provider 04/17/24 Tanisha Marlow 4120 [facility] [id number] 03/30/24 documented as of this encounter
--- OUTSIDE RECORDS SUMMARY | 2024-07-18 22:48 | XMS_ITS | Encounter Summary ---
Author Organization [facility] Address [address] [place] [address] Care Team Providers Care Lan Specialist Name Role Phone Carlos Joyner MD Unavailable [phone] Jadon Murray MD Unavailable [phone] Maru Villagomez RN Unavailable Unavailable Ang Slade MD Unavailable [phone] Carlos Joyner MD Unavailable +[phone] Ang Slade MD Unavailable +[phone] Lakshmi Wilhelm PA-C Unavailable [phone] Heladio Willoughby MD Primary Care Provider [phone] Heladio Willoughby MD Unavailable Alissa Perez PA-C Unavailable [phone] Lakshmi Wilhelm PA-C Unavailable [phone] Aidee Valero PA-C Unavailable [phone] Encounter Details Date Type Department Care Team (Late st Contact Info) Description 02/13/2024 [facility] Urology Clinic [address] [place] [address] Carlos Joyner MD [address] [place] [address] Social History Tobacco Use Types Packs/Day [...] st Contact Info) Description 07/21/2024 4:00 PM PRINCIPAL CONSULTING ENGINEER Office [facility] [address] [place] [address] [place] [address] [place] [address] 09/07/2024 8:30 AM CDT Virtual Visit [facility] Urology Clinic [address] [place] [address] Carlos Joyner MD [address] [place] [address] 09/20/2024 11:00 AM CDT Office [facility] 60 [address], [place] [phone] Sugey Mccoy, INDUSTRIAL RELATIONS COUNSELOR BAR WAITER/WAITRESS [address] [place], [place] 780864 documented as of this encounter Visit Diagnoses Not on filedocumented in this encounter Care Teams Lan Specialist Relationship Specialty Start [place] [address] [place] [address] PCP - General 03/05/23 Carlos Joyner MD [address] [place] [address] 651025 Urology 12/09/19 Jadon Murray MD [facility] 2530 [facility] 550 [place], [place] 84[address] Referring Physician Pediatric Surgery 12/09/19 Maru Villagomez, RN Registered Nurse 12/10/19 Ang Slade MD [address] [place] [address] 394 [place] [address] Urology 04/24/20 Carlos Joyner MD [address] [place] [address] 644775 Assigned Surgical Provider 12/24/20 Ang Slade MD [address] [place] [address] 394 [place] [address] Urology 12/18/22 Lakshmi Wilhelm PA-C [address] [place] [address] 642105 Physician Nurse Ortho Urology 02/03/23 [place] [address] [facility] [place] [address] Assigned PCP 02/06/23 Alissa Perez PA-C [address] [place] [address] 299105 Physician Nurse Ortho Surgery 09/04/23 Lakshmi Wilhelm PA-C [address] [place] [address] 273195 Physician Nurse Ortho Urology 09/16/23 Aidee Valero PA-C [address] [place] [address] 018355 Assigned Musculoskeletal Provider 04/17/24 Tanisha Marlow 4120 [facility] [address] 03/30/24 documented as of this encounter
--- OUTSIDE RECORDS SUMMARY | 2024-07-18 22:48 | XMS_ITS | Encounter Summary ---
Author Organization [facility] Address [address] [place] [address] Care Team Providers Care Traveling Missionary Name Role Phone Carlos Joyner MD Unavailable [phone] Jadon Murray MD Unavailable [phone] Maru Villagomez RN Unavailable Unavailable Ang Slade MD Unavailable [phone] Carlos Joyner MD Unavailable [phone] Ang Slade MD Unavailable +[phone] Lakshmi Wilhelm PA-C Unavailable [phone] Heladio Willoughby MD Primary Care Provider [phone] Heladio Willoughby MD Unavailable Alissa Perez PA-C Unavailable [phone] Lakshmi Wilhelm PA-C Unavailable +[phone] Aidee Valero PA-C Unavailable [phone] Reason for Visit * Reason Onset Date Comments Appointment 03/09/2024 Encounter Details Date Type Department Care Team (Late st Contact Info) Description 03/09/2024 Telephone [facility] Orthopedic Clinic [place] 181489 [facility] [address] 4th [place] [address] Unknown, Doctor, MD Appointment Social [...] st Contact Info) Description 07/21/2024 4:00 PM DIGESTER OPERATOR HELPER Office Visit [facility] [address] [place] [phone] [place] [address] [place] [address] 09/07/2024 8:30 AM CDT Virtual Visit [facility] [place] 909 [facility] 4th [place] [phone] Carlos Joyner MD [address] [place] [address] 353165 09/20/2024 11:00 AM CDT Office Visit [facility] [address] [place] [phone] Sugey Mccoy, [facility] [address] [place] [address] [address] [place], [place] 861354 documented as of this encounter Visit Diagnoses Not on filedocumented in this encounter Care Teams Traveling Missionary Relationship Specialty Start [place] [address] [place] [address] PCP - General 03/05/23 Carlos Joyner MD [address] [place] [address] 443975 Urology 12/09/19 Jadon Murray MD [facility] 2530 [facility] 550 [place] [address] Referring Physician Pediatric Surgery 12/09/19 Maru Villagomez, OTILIO Registered Nurse 12/10/19 Ang Slade MD [address] [place] [address] 394 [place] [address] Urology 04/24/20 Carlos Joyner MD [address] [place] [address] Assigned Surgical Provider 12/24/20 Ang Slade MD [address] [place] [address] Urology 12/18/22 Lakshmi Wilhelm PA-C [address] [place] [address] Physician Modeling Agent Urology 02/03/23 [place] [address] [place] [address] Assigned PCP 02/06/23 Alissa Perez PA-C [address] [place] [address] Physician Modeling Agent Surgery 09/04/23 Lakshmi Wilhelm PA-C [address] [place] [address] Physician Modeling Agent Urology 09/16/23 Aidee Valero PA-C [address] [place] [address] Assigned Musculoskeletal Provider 04/17/24 Tanisha Marlow 4120 [facility] [address] 03/30/24 documented as of this encounter
--- OUTSIDE RECORDS SUMMARY | 2024-07-18 22:48 | XMS_ITS | Encounter Summary ---
Author Organization [facility] Address [address] [place] [address] Care Team Providers Care Professor Of Theater Name Role Phone Carlos Joyner MD Unavailable [phone] Jadon Murray MD Unavailable [phone] Maru Villagomez RN Unavailable Unavailable Ang Slade MD Unavailable [phone] Carlos Joyner MD Unavailable [phone] Ang Slade MD Unavailable [phone] Lakshmi WilhelmC Unavailable [phone] Heladio Willoughby MD Primary Care Provider [phone] Heladio Willoughby MD Unavailable Alissa Perez PA-C Unavailable [phone] Lakshmi WilhelmC Unavailable [phone] Aidee ValeroC Unavailable [phone] Encounter Details Date Type Department Care Team (Late st Contact Info) Description 03/30/2024 Telephone [facility] Orthopedic Clinic [address] 4th [place] [address] Aidee Valero PA-C [address] [place] [address] Social History Tobacco Use Types Packs/Day [...] Natalie Abdullahi - 03/30/2024 3:23 PM CST [facility] Call Center Phone Message May a detailed message be left on voicemail: yes Reason for Call: Other: Anna is calling from Medical Records at [facility]. She is calling as she wants to know the time frame of records that are being requested? Action Taken: Other: te Travel Screening: Not Applicable Date of Service: ITY CONTROL ASSESSOR documented in this encounter Plan of Treatment Upcoming Encounters Date Type Department Care Team (Late st Contact Info) Description 07/21/2024 4:00 PM QUALITY CONTROL ASSESSOR Office Visit [facility] [address] [place] [phone] [place] [address] [place], [place] [phone] 09/07/2024 8:30 AM CDT Virtual Visit [facility] Urology [facility] [place] 909 [facility] 4th [place] [phone] Carlos Joyner MD [address] [place] [address] 235505 09/20/2024 11:00 AM CDT Office Visit [facility] [place] [address] [place] [phone] Sugey Mccoy, PROFESSOR OF BIOLOGY [facility] [address] [place], [place] [address]E S [facility] 106 [place] [address] documented as of this encounter Visit Diagnoses Not on filedocumented in this encounter Care Teams Professor Of Theater Relationship Specialty Start [place] [address] [place] [address] PCP - General 03/05/23 Carlos Joyner MD [address] [place] [address] 482575 Urology 12/09/19 Jadon Murray MD [facility] 2530 [facility] 550 [place] [address] Referring Physician Pediatric Surgery 12/09/19 Maru Villagomez, RN Registered Nurse 12/10/19 Ang Slade MD [address] [place] [address] 394 [place], [place] [phone] Urology 04/24/20 Carlos Joyner MD [address] [place] [address] 125495 Assigned Surgical Provider 12/24/20 Ang Slade MD [address] [place] [address] 398105 Urology 12/18/22 Lakshmi Wilhelm PA-C [address] [place] [address] 633045 Physician Seed Collector Urology 02/03/23 [place] [address] [place] [address] Assigned PCP 02/06/23 Alissa Perez PA-C [address] [place] [address] 720265 Physician Seed Collector Surgery 09/04/23 Lakshmi Wilhelm PA-C [address] [place] [address] 717195 Physician Seed Collector Urology 09/16/23 Aidee Valero PA-C [address] [place] [address] 234595 Assigned Musculoskeletal Provider 04/17/24 Tanisha Marlow 4120 [facility] [address] 03/30/24 documented as of this encounter
--- OUTSIDE RECORDS SUMMARY | 2024-07-18 22:48 | XMS_ITS | Encounter Summary ---
Author Organization [facility] Address [address] [place] [address] Care Team Providers Care Medical Planner Name Role Phone Carlos Joyner MD Unavailable [phone] Jadon Murray MD Unavailable [phone] Maru Villagomez RN Unavailable Unavailable Ignacia Duran MD Primary Care Provider Ang Slade MD Unavailable [phone] Carlos Joyner MD Unavailable [phone] Annalise Orta PA-C Unavailable Ang Slade MD Unavailable Lakshmi Wilhelm-C Unavailable Heladio Willoughby MD Primary Care Provider Heladio Willoughby MD Unavailable Alissa Perez PA-C Unavailable [phone] Lakshmi Wilhelm PA-C Unavailable Aidee Valero PA-C Unavailable Encounter Details Date Type Department Care Team (Late st Contact Info) Description 09/17/2021 [facility] Urology Clinic [address] [place] [address] Carlos Joyner MD [address] [place] [address] Social History Tobacco Use Types Packs/Day [...] st Contact Info) Description 07/21/2024 4:00 PM DERMATOLOGIST MANAGING PARTNER Office Visit [facility] [address] [place] [phone] [place] [address] [place] [address] 09/07/2024 8:30 AM CDT Virtual Visit [facility] Urology Clinic [address] [phone] Carlos Joyner MD [address] [place] [address] 184745 09/20/2024 11:00 AM CDT Office Visit [facility] Sleep Center [address] [address] Sugey Mccoy, NESTOR [address] [phone] documented as of this encounter Visit Diagnoses Not on filedocumented in this encounter Additional Health Concerns Infection Onset Date Last Indicated Resolved Time MRSA Comment:Added from external infection. Pt has had Staph infections but never MRSA from Care everywhere chart review. Removing MRSA 9.14.23 06/17/2019 02/06/2023 9:41 AM C DT documented as of this encounter Care Teams Medical Planner Relationship Specialty Start Date End Date Ignacia Duran MD PCP - General Pediatrics 01/20/20 03/04/23 [place] [address] [place] [address] PCP - General 03/05/23 Carlos Joyner MD [address] [place] [address] Urology 12/09/19 Jadon Murray MD [facility] [address] [address] Referring Physician Pediatric Surgery 12/09/19 Maru Villagomez, OTILIO Registered Nurse 12/10/19 Ang Slade MD [address] [place] [address] Urology 04/24/20 Carlos Joyner MD [address] [place] [address] 31568 Assigned Surgical Provider 12/24/20 Annalise Orta PA-C [address] [place] [address] Assigned Cancer Care Provider 05/13/21 11/01/22 Ang Slade MD [address] [place] [address] Urology 12/18/22 Lakshmi Wilhelm PA-C [address] [place] [address]2014 Physician Rn New Graduate Urology 02/03/23 [place] [address] [place] [address] Assigned PCP 02/06/23 Alissa Perez PA-C [address] [place] [address] Physician Rn New Graduate Surgery 09/04/23 Lakshmi Wilhelm PA-C [address] [place] [address] Physician Rn New Graduate Urology 09/16/23 Aidee Valero PA-C [address] [place] [address] Assigned Musculoskeletal Provider 04/17/24 Tanisha Marlow 4120 [facility] [address] 03/30/24 documented as of this encounter
[2024-07-19 00:30] VITALS: PULSE 98; RESP 18; O2SAT 96
== END 2024-07-19 00:35 | disposition home or self-care (01) ==
PROVIDERS: Emergency Provider Emergency Medicine; PCP Pediatrics
DX: S06.0X1A Concussion with loss of consciousness of 30 minutes or less, initial encounter (principal); W21.05XA Struck by basketball, initial encounter; Y93.67 Activity, basketball
CPT/HCPCS: 70450; 99283; 99284; A9270

== ENCOUNTER 2024-08-03 21:43 | Emergency (ER) | payer MEDICARE, MEDICAID, SELFPAY ==
--- OUTSIDE RECORDS SUMMARY | 2024-08-03 21:45 | XMS_ITS | Encounter Summary ---
Author Organization [facility] Address [address] [place] [address] Care Team Providers Care Doughmaker Name Role Phone Carlos Joyner MD Unavailable [phone] Jadon Murray MD Unavailable + [phone] Maru Villagomez RN Unavailable Unavailable Ignacia Duran MD Primary Care Provider [phone] Ang Slade MD Unavailable [phone] Carlos Joyner MD Unavailable [phone] Ang Slade MD Unavailable [phone] Lakshmi Wilhelm-C Unavailable [phone] Heladio Willoughby MD Primary Care Provider [phone] Heladio Willoughby MD Unavailable Alissa Perez PA-C Unavailable [phone] Lakshmi Wilhelm-C Unavailable [phone] Aidee Valero PA-C Unavailable [phone] Encounter Details Date Type Department Care Team (Late st Contact Info) Description 12/30/2022 [facility] U[facility] [address] [place] [address] Analisa Palacio, OTILIO Social History [...] Care Team (Late st Contact Info) Description 09/07/2024 8:30 AM CDT Virtual Visit [facility] Urology Clinic [address] [place] [phone] Carlos Joyner MD [address] [place] [address] 762875 09/13/2024 11:00 AM CDT Office Visit [facility] [address] [place] [phone] [place] [address] [place], [place] 4793168 09/20/2024 11:00 AM CDT Office Visit [facility] Sleep Center [address] [phone] Sugey Mccoy, ELECTROSTATIC POWDER COATING TECHNICIAN [address] 533214 documented as of this encounter Visit Diagnoses Not on filedocumented in this encounter Additional Health Concerns Infection Onset Date Last Indicated Resolved Time MRSA Comment:Added from external infection. Pt has had Staph infections but never MRSA from Care everywhere chart review. Removing MRSA .14.23 06/17/2019 02/06/2023 9:41 AM C DT documented as of this encounter Care Teams Doughmaker Relationship Specialty Start Date End Date Ignacia Duran MD PCP - General Pediatrics 01/20/20 03/04/23 [place] [address] [place] [address] PCP - General 03/05/23 Carlos Joyner MD [address] [place] [address] Urology 12/09/19 Jadon Murray MD [facility] [address] [address] Referring Physician Pediatric Surgery 12/09/19 Maru Villagomez, OTILIO Registered Nurse 12/10/19 Ang Slade MD [address] [place] [address] 575075 Urology 04/24/20 Carlos Joyner MD [address] [place] [address] 121785 Assigned Surgical Provider 12/24/20 Ang Slade MD [address] [place] [address] Urology 12/18/22 Lakshmi Wilhelm PA-C [address] [place] [address] 711455 Physician Human Intelligence Urology 02/03/23 [place] [address] [place] [address] Assigned PCP 02/06/23 Alissa Perez PA-C [address] [place] [address] 983505 Physician Human Intelligence Surgery 09/04/23 Lakshmi Wilhelm PA-C [address] [place] [address] 873985 Physician Human Intelligence Urology 09/16/23 Aidee Valero PA-C [address] [place] [address] 004945 Assigned Musculoskeletal Provider 04/17/24 Tanisha Marlow 4120 [facility] [address] 03/30/24 documented as of this encounter
--- OUTSIDE RECORDS SUMMARY | 2024-08-03 21:45 | XMS_ITS | Encounter Summary ---
Author Organization [place] Address [address] [place] [address] Care Team Providers Care Lining Machine Operator Name Role Phone Carlos Joyner MD Unavailable +[phone] Jadon Murray MD Unavailable +[phone] Maru Villagomez RN Unavailable Unavailable Ignacia Duran MD Primary Care Provider [phone] Carlos Joyner MD Unavailable +[phone] Ang Slade MD Unavailable +[phone] Ang Slade MD Unavailable +[phone] Carlos Joyner MD Unavailable +[phone] Annalise Orta PA-C Unavailable +[phone] Ang Slade MD Unavailable +[phone] Lakshmi Wilhelm-C Unavailable +[phone] Heladio Willoughby MD Primary Care Provider +[phone] Heladio Willoughby MD Unavailable Alissa Perez PA-C Unavailable [phone] Lakshmi Wilhelm-C Unavailable +[phone] Aidee Valero PA-C Unavailable +[phone] Reason for Visit * Reason Onset Date Comments Call Back 08/01/2020 Miscommunication between urinary results Encounter Details Date Type Department Care Team (Late st Contact Info) Description 08/01/2020 Telephone [facility] [address] [place] [phone] Ang Slade MD 420 [facility] 394 [place], [place] 111285 Call Back (Miscommunication between urinary results) Social [...] COVID-19? No / Unsure 08/02/2020 8:37 AM MANAGER TALENT MANAGEMENT documented as of this encounter Miscellaneous Notes * Telephone Encounter - Diego Sams - 08/01/2020 11:21 AM CST [facility] Phone Message May a detailed message be left on voicemail: yes Reason for Call: Other: Cristine with [facility] calling because pt's primary, , would like to speak with or a nurse regarding pt's urinary results. Reports that there is some miscommunication that she wants to clarify. Please call back. Action Taken: Message routed to: [facility] uro Travel Screening: Not Applicable GER TALENT MANAGEMENT documented in this encounter Plan of Treatment Upcoming Encounters Date Type Department Care Team (Late st Contact Info) Description 09/07/2024 8:30 AM CDT Virtual Visit [facility] [address] [phone] Carlos Joyner MD [address] [place] [address] 09/13/2024 11:00 AM CDT Office Visit [facility] [address] [place] [phone] [place] [address] [place], [place] 4495368 09/20/2024 11:00 AM CDT Office Visit [place] [address] [place] [phone] Sugey Mccoy, FOOTWEAR STITCHER [facility] [address] [place], [place] [address] [address] [place], [place] [address] documented as of this encounter Visit Diagnoses Not on filedocumented in this encounter Additional Health Concerns Infection Onset Date Last Indicated Resolved Time MRSA Comment:Added from external infection. Pt has had Staph infections but never MRSA from Care everywhere chart review. Removing MRSA 02.06.23 06/17/2019 02/06/2023 9:41 AM C DT documented as of this encounter Care Teams Lining Machine Operator Relationship Specialty Start Date End Date Ignacia Duran MD PCP - General Pediatrics 01/20/20 03/04/23 [place] [address] [place] [address] PCP - General 03/05/23 Carlos Joyner MD [address] [place] [address] Urology 12/09/19 Jadon Murray MD [facility] 2530 [facility] 550 [place] [address] Referring Physician Pediatric Surgery 12/09/19 Maru Villagomez, OTILIO Registered Nurse 12/10/19 Carlos Joyner MD 909 [place] [address] Assigned Surgical Provider 03/17/20 Ang Slade MD 420 [facility] 394 [place] [address] Urology 04/24/20 Ang Slade MD 420 [facility] 394 [place], [place] 857975 Assigned Surgical Provider 08/13/20 Carlos Joyner MD [address] [place] [address] 935135 Assigned Surgical Provider 12/24/20 Annalise Orta PA-C [address] [place] [address] Assigned Cancer Care Provider 05/13/21 11/01/22 Ang Slade MD [address] 903995 Urology 12/18/22 Lakshmi Wilhelm PA-C [address] [place] [address] 235135 Physician Commercial Photographer Urology 02/03/23 [place] [address] [place] [address] Assigned PCP 02/06/23 Alissa Perez PA-C [address] [place] [address] [place] [address] Physician Commercial Photographer Surgery 09/04/23 Lakshmi Wilhelm PA-C 909 [place] [address] Physician Commercial Photographer Urology 09/16/23 Aidee Valero PA-C [address] [place] [address] Assigned Musculoskeletal Provider 04/17/24 Tanisha Marlow 4120 [facility] [address] 03/30/24 documented as of this encounter
--- OUTSIDE RECORDS SUMMARY | 2024-08-03 21:45 | XMS_ITS | Encounter Summary ---
Author Organization [place] Address [address] [place] [address] Care Team Providers Care Maternity Nurse Name Role Phone Carlos Joyner MD Unavailable [phone] Jadon Murray MD Unavailable +[phone] Maru Villagomez RN Unavailable Unavailable Ang Slade MD Unavailable +[phone] Carlos Joyner MD Unavailable +[phone] Ang Slade MD Unavailable +[phone] Lakshmi WilhelmC Unavailable +[phone] Heladio Willoughby MD Primary Care Provider [phone] Heladio Willoughby MD Unavailable Alissa Perez PA-C Unavailable [phone] Lakshmi WilhelmC Unavailable +[phone] Aidee ValeroC Unavailable +[phone] Encounter Details Date Type Department Care Team (Late st Contact Info) Description 04/01/2024 [facility] [address] [place] [address] Aidee Valero PA-C [address] [place] [address] Social History Tobacco Use Types Packs/Day [...] Description 09/07/2024 8:30 AM CDT Virtual Visit [facility] Urology [address] [phone] Carlos Joyner MD [address] [place] [address] 403395 09/13/2024 11:00 AM CDT Office Visit [facility] [address] [place] [address] [place] [address] [facility] [place] 8357968 09/20/2024 11:00 AM CDT Office Visit [facility] [address] [place] [phone] Sugey Mccoy, SENIOR INDUSTRIAL ENGINEER CRUCIBLE PACKER [address] [place], [place] [address]E [address] [place], [place] 8[address] documented as of this encounter Visit Diagnoses Not on filedocumented in this encounter Care Teams Maternity Nurse Relationship Specialty Start [place] [address] [facility] [place], [place] 8894768 PCP - General 03/05/23 Carlos Joyner MD [address] [place] [address] 852055 Urology 12/09/19 Jadon Murray MD [facility] 2530 [facility] 550 [place], [place] 8[address] Referring Physician Pediatric Surgery 12/09/19 Maru Villagomez RN Registered Nurse 12/10/19 Ang Slade MD [address] [place] [address] Urology 04/24/20 Carlos Joyner MD [address] [place] [address] 635575 Assigned Surgical Provider 12/24/20 Ang Slade MD [address] [place] [address] 394 [place] [address] Urology 12/18/22 Lakshmi Wilhelm PA-C [address] [place] [address] 404835 Physician Ophthalmologist Retina Specialist Urology 02/03/23 [place] [address] [facility] [place] [address] Assigned PCP 02/06/23 Alissa Perez PA-C [address] [place] [address] 039525 Physician Ophthalmologist Retina Specialist Surgery 09/04/23 Lakshmi Wilhelm PA-C [address] [place] [address] 845195 Physician Ophthalmologist Retina Specialist Urology 09/16/23 Aidee Valero PA-C [address] [place] [address] 654835 Assigned Musculoskeletal Provider 04/17/24 Tanisha Marlow 4120 [facility] [address] 03/30/24 documented as of this encounter
--- OUTSIDE RECORDS SUMMARY | 2024-08-03 21:45 | XMS_ITS | Encounter Summary ---
Author Organization [place] Address [address] [place] [address] Care Team Providers Care Plastics Patternmaker Name Role Phone Carlos Joyner MD Unavailable [phone] Jadon Murray MD Unavailable [phone] Maru Villagomez RN Unavailable Unavailable Ignacia Duran MD Primary Care Provider +[phone] Carlos Joyner MD Unavailable +[phone] Ang Slade MD Unavailable +[phone] Ang Slade MD Unavailable +[phone] Carlos Joyner MD Unavailable +[phone] Annalise Orta PA-C Unavailable +[phone] Ang Slade MD Unavailable +[phone] Lakshmi Wilhelm-C Unavailable +[phone] Heladio Willoughby MD Primary Care Provider [phone] Heladio Willoughby MD Unavailable Alissa Perez PA-C Unavailable [phone] Lakshmi Wilhelm-C Unavailable +[phone] Aidee Valero PA-C Unavailable +[phone] Reason for Visit * Reason Onset Date Comments Call Back 06/07/2020 Stent FYI Encounter Details Date Type Department Care Team (Late st Contact Info) Description 06/07/2020 [facility] [place] [address] [facility] 4th [place] [phone] Ang Slade MD 420 [facility] 394 [place], [place] 0726[address] Call Back (Stent FYI) Social History Tobacco [...] them back message sent to lamar .jw K ROLLER * Telephone Encounter - Zo Geiger - 06/07/2020 3:16 PM CST [facility] Phone Message May a detailed message be left on voicemail: yes Reason for Call: Other: Cristine calling to let us know that Laina's stent was put in by a providerat [facility] in the Emergency room on 02/04. Cristine is hoping to get a call back to discuss. Action Taken: Message routed to: [facility] Urology Travel Screening: Not Applicable K ROLLER documented in this encounter Plan of Treatment Upcoming Encounters Date Type Department Care Team (Late st Contact Info) Description 09/07/2024 8:30 AM CDT Virtual Visit [facility] [address] [phone] Carlos Joyner MD [address] [place] [address] 09/13/2024 11:00 AM CDT Office Visit [facility] [address] [place] [address] [place] [address] [place], [place] 8856368 09/20/2024 11:00 AM CDT Office Visit [place] [address] [place] [address] Sugey Mccoy, DATA REVIEWER [facility] [address] [place] [address] [address] [place], [place] 763564 documented as of this encounter Visit Diagnoses Not on filedocumented in this encounter Additional Health Concerns Infection Onset Date Last Indicated Resolved Time MRSA Comment:Added from external infection. Pt has had Staph infections but never MRSA from Care everywhere chart review. Removing MRSA 9.14.06/17/2019 02/06/2023 9:41 AM C DT documented as of this encounter Care Teams Plastics Patternmaker Relationship Specialty Start Date End Date Ignacia Duran MD PCP - General Pediatrics 01/20/20 03/04/23 [place] [address] [place] [address] PCP - General 03/05/23 Carlos Joyner MD 9 [place] [address] Urology 12/09/19 Jadon Murray MD [facility] 2530 550 [place] [address] Referring Physician Pediatric Surgery 12/09/19 Maru Villagomez, RN Registered Nurse 12/10/19 Carlos Joyner MD 909 [place] [address] Assigned Surgical Provider 03/17/20 Ang Slade MD 420 [facility] 394 [place] [address] Urology 04/24/20 Ang Slade MD 420 [facility] 394 [place], [place] 093485 Assigned Surgical Provider 08/13/20 Carlos Joyner MD [address] [place] [address] 732955 Assigned Surgical Provider 12/24/20 Ananlise Orta PA-C 5200 [place] [address] Assigned Cancer Care Provider 05/13/21 11/01/22 Ang Slade MD [address] 021525 Urology 12/18/22 Lakshmi Wilhelm PA-C [address] [place] [address] 536685 Physician Occupational Therapist'S Assistant Urology 02/03/23 [place] [address] [place] [address] Assigned PCP 02/06/23 Alissa Perez PA-C [address] [place] [address] Physician Occupational Therapist'S Assistant Surgery 09/04/23 Lakshmi Wilhelm PA-C 9 [place] [address] Physician Occupational Therapist'S Assistant Urology 09/16/23 Aidee Valero PA-C [address] [place] [address] Assigned Musculoskeletal Provider 04/17/24 Tanisha Marlow [facility] [id number] 03/30/24 documented as of this encounter
--- OUTSIDE RECORDS SUMMARY | 2024-08-03 21:45 | XMS_ITS | Encounter Summary ---
Author Organization [place] Address [address] [place] [address]027 Care Team Providers Care Assisted Living Housekeeper Name Role Phone Carlos Joyner MD Unavailable [phone] Jadon Murray MD Unavailable +[phone] Maru Villagomez RN Unavailable Unavailable Ang Slade MD Unavailable [phone] Carlos Joyner MD Unavailable +[phone] Ang Slade MD Unavailable +[phone] Lakshmi Wilhelm PA-C Unavailable Heladio Willoughby MD Primary Care Provider [phone] Heladio Willoughby MD Unavailable Alissa Perez PA-C Unavailable [phone] Lakshmi Wilhelm PA-C Unavailable [phone] Aidee Valero PA-C Unavailable [phone] Encounter Details Date Type Department Care Team (Late st Contact Info) Description 06/23/2024 [facility] [address] [place] [address] Carlos Joyner MD [address] [place] [address] Social History Tobacco Use Types Packs/Day [...] Description 09/07/2024 8:30 AM CDT Virtual Visit [facility] [address] [place] [address] Carlos Joyner MD [address] [place] [address] 650315 09/13/2024 11:00 AM CDT Office Visit [facility] [address] [place] [address] [place] [address] [place] [address] 09/20/2024 11:00 AM CDT Office Visit [facility] [address] [place] [phone] Sugey Mccoy, HOSPITAL INTERN [facility] 606 [facility] [address] [place], [place] 327544 documented as of this encounter Visit Diagnoses Not on filedocumented in this encounter Care Teams Assisted Living Housekeeper Relationship Specialty Start [place] [address] [place] [address] PCP - General 03/05/23 Carlos Joyner MD [address] [place] [address] 231825 Urology 12/09/19 Jadon Murray MD [facility] 2530 [facility] 550 [place], [place] [phone] Referring Physician Pediatric Surgery 12/09/19 Maru Villagomez, RN Registered Nurse 12/10/19 Ang Slade MD [address] [place] [address] Urology 04/24/20 Carlos Joyner MD [address] [place] [address] 948935 Assigned Surgical Provider 12/24/20 Ang Slade MD [address] [place] [address] 394 [place] [address] Urology 12/18/22 Lakshmi Wilhelm PA-C [address] [place] [address] 118765 Physician Psychiatry Instructor Urology 02/03/23 [place] [address] [facility] [place] [address] Assigned PCP 02/06/23 Alissa Perez PA-C [address] [place] [address] 510815 Physician Psychiatry Instructor Surgery 09/04/23 Lakshmi Wilhelm PA-C [address] [place] [address] 297045 Physician Psychiatry Instructor Urology 09/16/23 Aidee Valero PA-C [address] [place] [address] 391095 Assigned Musculoskeletal Provider 04/17/24 Tanisha Marlow 4120 [facility] [address] 03/30/24 documented as of this encounter
--- OUTSIDE RECORDS SUMMARY | 2024-08-03 21:45 | XMS_ITS | Encounter Summary ---
Author Organization [place] Address [address] [place] [address] Care Team Providers Care Air Launch Weapons Technician Name Role Phone Carlos Joyner MD Unavailable [phone] Jadon Murray MD Unavailable + [phone] Maru Villagomez RN Unavailable Unavailable Ignacia Duran MD Primary Care Provider [phone] Ang Slade MD Unavailable [phone] Carlos Joyner MD Unavailable [phone] Ang Slade MD Unavailable +[phone] Lakshmi Wilhelm-C Unavailable [phone] Heladio Willoughby MD Primary Care Provider [phone] Heladio Willoughby MD Unavailable Alissa Perez PA-C Unavailable [phone] Lakshmi Wilhelm-C Unavailable [phone] Aidee Valero PA-C Unavailable +[phone] Encounter Details Date Type Department Care Team (Late st Contact Info) Description 01/07/2023 [facility] [address] [place] [address] Analisa Palacio, OTILIO Social History [...] 8:30 AM CDT Virtual Visit [facility] [address] [place] [phone] Carlos Joyner MD [address] [place] [address] 092505 09/13/2024 11:00 AM CDT Office Visit [facility] [address] [place] [phone] [place] [address] [place], [place] 2011568 09/20/2024 11:00 AM CDT Office Visit [facility] [address] [phone] Sugey Mccoy, OPERATIONS RECRUITER [address] 960074 documented as of this encounter Visit Diagnoses Not on filedocumented in this encounter Additional Health Concerns Infection Onset Date Last Indicated Resolved Time MRSA Comment:Added from external infection. Pt has had Staph infections but never MRSA from Care everywhere chart review. Removing MRSA .14.23 06/17/2019 02/06/2023 9:41 AM C DT documented as of this encounter Care Teams Air Launch Weapons Technician Relationship Specialty Start Date End Date Ignacia Duran MD PCP - General Pediatrics 01/20/20 03/04/23 [place] [address] [place] [address] PCP - General 03/05/23 Carlos Joyner MD [address] [place] [address] Urology 12/09/19 Jadon Murray MD [facility] [address] [address] Referring Physician Pediatric Surgery 12/09/19 Maru Villagomez, OTILIO Registered Nurse 12/10/19 Ang Slade MD [address] [place] [address] 615865 Urology 04/24/20 Carlos Joyner MD [address] [place] [address] 582215 Assigned Surgical Provider 12/24/20 Ang Slade MD [address] [place] [address] Urology 12/18/22 Lakshmi Wilhelm PA-C [address] [place] [address] 027915 Physician Cafe Associate Urology 02/03/23 [place] [address] [place] [address] Assigned PCP 02/06/23 Alissa Perez PA-C [address] [place] [address] 258925 Physician Cafe Associate Surgery 09/04/23 Lakshmi Wilhelm PA-C [address] [place] [address] 227205 Physician Cafe Associate Urology 09/16/23 Aidee Valero PA-C [address] [place] [address] 825255 Assigned Musculoskeletal Provider 04/17/24 Tanisha Marlow 4120 [facility] [address] 03/30/24 documented as of this encounter
--- OUTSIDE RECORDS SUMMARY | 2024-08-03 21:45 | XMS_ITS | Encounter Summary ---
Author Organization [place] Address [address] [place] [address] Care Team Providers Care Client Portfolio Manager Name Role Phone Carlos Joyner MD Unavailable [phone] Jadon Murray MD Unavailable + [phone] Maru Villagomez RN Unavailable Unavailable Ignacia Duran MD Primary Care Provider +[phone] Ang Slade MD Unavailable +[phone] Carlos Joyner MD Unavailable +[phone] Ang Slade MD Unavailable +[phone] Lakshmi Wilhelm-C Unavailable +[phone] Heladio Willoughby MD Primary Care Provider [phone] Heladio Willoughby MD Unavailable Alissa Perez PA-C Unavailable [phone] Lakshmi Wilhelm-C Unavailable [phone] Aidee Valero PA-C Unavailable +[phone] Encounter Details Date Type Department Care Team (Late st Contact Info) Description 01/06/2023 [facility] [address] [address] Lisette Mariee Social History Tobacco [...] Description 09/07/2024 8:30 AM CDT Virtual Visit [facility] [address] [place] [phone] Carlos Joyner MD [address] [place] [address] 247915 09/13/2024 11:00 AM CDT Office Visit [facility] [address] [place] [phone] [place] [address] [place], [place] 7278568 09/20/2024 11:00 AM CDT Office Visit [facility] [address] [phone] Sugey Mccoy, PORTRAIT PAINTER [address] 757614 documented as of this encounter Visit Diagnoses Not on filedocumented in this encounter Additional Health Concerns Infection Onset Date Last Indicated Resolved Time MRSA Comment:Added from external infection. Pt has had Staph infections but never MRSA from Care everywhere chart review. Removing MRSA 9.14.23 06/17/2019 02/06/2023 9:41 AM C DT documented as of this encounter Care Teams Client Portfolio Manager Relationship Specialty Start Date End Date Ignacia Duran MD PCP - General Pediatrics 01/20/20 03/04/23 [place] [address] [place] [address] PCP - General 03/05/23 Carlos Joyner MD [address] [place] [address] Urology 12/09/19 Jadon Murray MD [facility] [address] [address] Referring Physician Pediatric Surgery 12/09/19 Maru Villagomez, OTILIO Registered Nurse 12/10/19 Ang Slade MD [address] [place] [address] Urology 04/24/20 Carlos Joyner MD [address] [place] [address] Assigned Surgical Provider 12/24/20 Ang Slade MD [address] [place] [address] Urology 12/18/22 Lakshmi Wilhelm PA-C [address] [place] [address] 352855 Physician Certified Nurse Practitioner Urology 02/03/23 [place] [address] [place] [address] Assigned PCP 02/06/23 Alissa Perez PA-C [address] [place] [address] 588415 Physician Certified Nurse Practitioner Surgery 09/04/23 Lakshmi Wilhelm PA-C [address] [place] [address] 568455 Physician Certified Nurse Practitioner Urology 09/16/23 Aidee Valero PA-C [address] [place] [address] 221765 Assigned Musculoskeletal Provider 04/17/24 Tanisha Marlow 4120 [facility] [address] 03/30/24 documented as of this encounter
--- OUTSIDE RECORDS SUMMARY | 2024-08-03 21:45 | XMS_ITS | Encounter Summary ---
Author Organization [place] Address [address] [place] [address] Care Team Providers Care Machine Coremaker Name Role Phone Carlos Joyner MD Unavailable [phone] Jadon Murray MD Unavailable [phone] Maru Villagomez RN Unavailable Unavailable Ignacia Duran MD Primary Care Provider [phone] Ang Slade MD Unavailable [phone] Carlos Joyner MD Unavailable [phone] Annalise Orta PA-C Unavailable [phone] Ang Slade MD Unavailable Lakshmi Wilhelm-C Unavailable [phone] Heladio Willoughby MD Primary Care Provider Heladio Willoughby MD Unavailable Alissa Perez PA-C Unavailable [phone] Lakshmi Wilhelm-C Unavailable [phone] Aidee Valero PA-C Unavailable [phone] Reason for Visit * Reason Onset Date Comments Patient/info Update 02/26/2021 pt currently intubated, will nto be able to have uro surgery Encounter Details Date Type Department Care Team ([facility] Contact Info) Description 02/26/2021 [facility] [address] [place] [address] Carlos Joyner MD 909 [place] [address] Patient/info Update (pt currently intubated, will nto [...] Lakshmi Chowdhury - 02/26/2021 2:07 PM CDT [facility] Phone Message May a detailed message be left on voicemail: yes Reason for Call: Other: Edith called in wanting to let Dr. Joyner and his team know that [facility] date [facility]09[facility]21. Please call back if thereare any questions at [phone] Action Taken: Message routed to: [facility] uro Travel Screening: Not Applicable documented in this encounter Plan of Treatment Upcoming Encounters Date Type Department Care Team (Late st Contact Info) Description 09/07/2024 8:30 AM CDT Virtual Visit [facility] [address] 4th [place] [address] Carlos Joyner MD [address] [place] [address] 09/13/2024 11:00 AM CDT Office Visit [address] [place] [address] [place] [address] [place], [place] 5410668 09/20/2024 11:00 AM CDT Office Visit [facility] [address] [place] [address] Sugey Mccoy, AGENT BASED MODELER [facility] [address] [place], [place] [address]E [address] [place] [address] documented as of this encounter Visit Diagnoses Not on filedocumented in this encounter Additional Health Concerns Infection Onset Date Last Indicated Resolved Time MRSA Comment:Added from external infection. Pt has had Staph infections but never MRSA from Care everywhere chart review. Removing MRSA 9.14.06/17/2019 02/06/2023 9:41 AM C DT documented as of this encounter Care Teams Machine Coremaker Relationship Specialty Start Date End Date Ignacia Duran MD PCP - General Pediatrics 01/20/20 03/04/23 [place] [address] [place], [place] 6737968 PCP - General 03/05/23 Carlos Joyner MD [address] [place] [address] Urology 12/09/19 Jadon Murray MD [facility] [address] [address] Referring Physician Pediatric Surgery 12/09/19 Maru Villagomez, OTILIO Registered Nurse 12/10/19 Ang Slade MD [address] [place] [address] Urology 04/24/20 Carlos Joyner MD [address] [place] [address]83 Assigned Surgical Provider 12/24/20 Annalise Orta PA-C 5200 [place] [address] Assigned Cancer Care Provider 05/13/21 11/01/22 Ang Slade MD [address] [place] [address] Urology 12/18/22 Lakshmi Wilhelm PA-C [address] [place] [address] 554725 Physician Quality Assurance Test Program Manager Urology 02/03/23 [place] [address] [place] [address] Assigned PCP 02/06/23 Alissa Perez PA-C [address] [place] [address] Physician Quality Assurance Test Program Manager Surgery 09/04/23 Lakshmi Wilhelm PA-C [address] [place] [address] 400005 Physician Quality Assurance Test Program Manager Urology 09/16/23 Aidee Valero PA-C [address] [place] [address] 341435 Assigned Musculoskeletal Provider 04/17/24 Tanisha Marlow [address] [place] [address] 03/30/24 documented as of this encounter
--- OUTSIDE RECORDS SUMMARY | 2024-08-03 21:45 | XMS_ITS | Encounter Summary ---
Author Organization [place] Address [address] [place] [address]. [place] [address] Care Team Providers Care Hydrotel Operator Name Role Phone Carlos Joyner MD Unavailable [phone] Jadon Murray MD Unavailable [phone] Maru Villagomez RN Unavailable Unavailable Ang Slade MD Unavailable [phone] Carlos Joyner MD Unavailable [phone] Ang Slade MD Unavailable [phone] Lakshmi Wilhelm-C Unavailable [phone] Heladio Willoughby MD Primary Care Provider [phone] Heladio Willoughby MD Unavailable Alissa Perez PA-C Unavailable [phone] Lakshmi Wilhelm-C Unavailable [phone] Aidee Valero PA-C Unavailable [phone] Reason for Visit * Reason Onset Date Comments Orders 06/22/2024 Encounter Details Date Type Department Care Team (Late st Contact Info) Description 06/22/2024 Telephone [facility] [address] [place] [address] [place] [address] [place] [address] Orders Social History Tobacco Use [...] 06/24/2024 7:55 AM CST Returned call to [facility] with [employer], left detailed VM with order approval per provider. Tanisha Quiros RN on 06/24/2024 at 7:56 AM FARM ENGINEER * Telephone Encounter - Heladio Willoughby MD - 06/24/2024 5:49 AM CST Verbal order given. Thanks, Heladio Willoughby MD [facility] 06/24/2024 FARM ENGINEER * Telephone Encounter - Ileana Lieberman RN - 06/22/2024 3:46 PM CST Received call from Vanessa at [employer] Requesting verbal order from Dr Heladio Willoughby for 30 Peristeen Catheters to be dispensed and shipped yodit. Under current DME order, unable to ship until end of June (3 month supply at a time), patient recently moved to new home and supplies were lost during move. Please call Vanessa back with provider approval of verbal order. Ok to leave detailed message if needed. FARM ENGINEER documented in this encounter Plan of Treatment Upcoming Encounters Date Type Department Care Team (Late st Contact Info) Description 09/07/2024 8:30 AM CDT Virtual Visit [facility] [address] [place] [address] Carlos Joyner MD [address] [place] [address] 171015 09/13/2024 11:00 AM CDT Office Visit [facility] [address] [place] [phone] [place] [address] [place] [address] 09/20/2024 11:00 AM CDT Office Visit [facility] [address] [phone] Sugey Mccoy APRN [address] [id number] documented as of this encounter Procedures Procedure Name Priority Date/Time Associated Diagnosis Comments ROUTINE UA WITH MICROSCOPIC Routine 06/25/2024 9:14 AM WIND FARM ENGINEER Recurrent UTI URINE MICROSCOPIC EXAM Routine 06/25/2024 9:14 AM WIND FARM ENGINEER Recurrent UTI URINE CULTURE Routine 06/25/2024 9:14 AM WIND FARM ENGINEER Recurrent UTI documented in this encounter Results * (ABNORMAL) Urine Microscopic Exam (06/25/2024 9:14 AM WIND FARM ENGINEER) Bacteria Urine Many(A) None Seen /HPF LINDA 06/25/2024 9:20 AM WIND FARM ENGINEER RM LABORATORY RBC Urine 2-5(A) 0-2 /HPF /HPF LINDA 06/25/2024 9:20 AM WIND FARM ENGINEER RM LAB[facility]ATORY WBC Urine 10-25(A) 0-5 /HPF /HPF LINDA 06/25/2024 9:20 AM WIND FARM ENGINEER RM LABORATORY Amorphous Crystals Urine Few(A) None Seen /HPF LINDA 06/25/2024 9:20 AM WIND FARM ENGINEER RM LABORATORY Urine URINE SPECIMEN FROM URINARY CONDUIT / Unknown Non-blood Collection / Unknown 06/25/2024 9:14 AM WIND FARM ENGINEER 06/25/2024 9:15 AM WIND FARM ENGINEER Carlos Joyner MD LAB - URINE ORDERABLES Fin al Result LABORATORY [facility] [address] [facility] (no room number, 1st floor of clinic) [place] [address], [facility] * (ABNORMAL) Urine Culture (06/25/2024 9:14 AM WIND FARM ENGINEER) Culture >100,000 CFU/mL Staphylococcus epidermidis(A) LINDA 06/28/2024 6:49 AM WIND FARM ENGINEER [facility] Culture 50,000-100,000 CFU/mL Staphylococcus epidermidis(A) 06/28/2024 6:49 AM WIND FARM ENGINEER [facility] Urine URINE SPECIMEN OBTAINED VIA INDWELLING URINARY CATHETER / Unknown Non-blood Collection / Unknown 06/25/2024 9:14 AM WIND FARM ENGINEER 06/25/2024 9:15 AM WIND FARM ENGINEER Narrative Organism Antibiotic Method Susceptibility Staphylococcus epidermidis [...] Final Result [facility] Inf. Diseases Diag. Lab [address] [facility], Room [address] [place] [id number] * (ABNORMAL) UA with Microscopic (06/25/2024 9:14 AM WIND FARM ENGINEER) Color Urine Yellow Colorless, Straw, Light Yellow, Yellow 06/25/2024 9:19 AM WIND FARM ENGINEER LABORATORY Appearance Urine Cloudy(A) Clear 06/25/19 25 9:19 AM ED [facility] Glucose Urine Negative Negative mg/dL 06/25/2024 9:19 AM ED [facility] Bilirubin Urine Negative Negative 9:19 AM ED [facility] Ketones Urine Negative Negative mg/dL 06/25/2024 9:19 AM ED [facility] Specific [place] Urine 1.020 1.003 - 1.035 06/25/2024 9:19 AM ED [facility] Blood Urine Small(A) Negative 06/25/2024 9:19 AM ED [facility] pH Urine 6.0 5.0 - 7.0 06/25/2024 9:19 AM ED [facility] Protein Albumin Urine Negative Negative mg/dL 06/25/2024 9:19 AM ED [facility] Urobilinogen Urine 0.2 0.2, 1.0 E.U./dL 06/25/2024 9:19 AM ED [facility] Nitrite Urine Positive(A) Negative 06/25/2024 9:19 AM ED [facility] Leukocyte Esterase Urine Small(A) Negative 06/25/2024 9:19 AM ED [facility] Urine URINE SPECIMEN FROM URINARY CONDUIT / Unknown Non-blood Collection / Unknown 06/25/2024 9:14 AM WIND FARM ENGINEER 06/25/2024 9:15 AM [facility] us Carlos Joyner MD LAB - URINE ORDERABLES Fin al Result LABORATORY [facility] [address] [facility] (no room number, 1st floor of clinic) [place] [id number] documented in this encounter Visit Diagnoses Diagnosis Recurrent UTI Urinary tract infection, site not specified documented in this encounter Care Teams Hydrotel Operator Relationship Specialty Start [place] [address] [place] [address] PCP - General 03/05/23 Carlos Joyner MD [address] [place] [address] Urology 12/09/19 Jadon Murray MD [facility] [address] [facility] 550 [place] [address] Referring Physician Pediatric Surgery 12/09/19 Maru Villagomez, RN Registered Nurse 12/10/19 Ang Slade MD 420 [facility] 394 [place], [place] 387155 Urology 04/24/20 Carlos Joyner MD [address] [place] [address] 920735 Assigned Surgical Provider 12/24/20 Ang Slade MD 420 [facility] 394 [place], [place] 139475 Urology 12/18/22 Lakshmi Wilhelm PA-C [address] [place] [address] 760055 Physician Panel Fitter Urology 02/03/23 [place] [address] [place] [address] Assigned PCP 02/06/23 Alissa Perez PA-C [address] [place] [address] 301315 Physician Panel Fitter Surgery 09/04/23 Lakshmi Wilhelm PA-C [address] [place] [address] 226795 Physician Panel Fitter Urology 09/16/23 Aidee Valero PA-C 9 [place] [address] Assigned Musculoskeletal Provider 04/17/24 Tanisha Marlow 4120 [facility] [address] 03/30/24 documented as of this encounter
--- OUTSIDE RECORDS SUMMARY | 2024-08-03 21:45 | XMS_ITS | Encounter Summary ---
Author Organization [place] Address [address] [place] [address] Care Team Providers Care Drupal Php Developer Name Role Phone Carlos Joyner MD Unavailable [phone] Jadon Murray MD Unavailable [phone] Maru Villagomez RN Unavailable Unavailable Ang Slade MD Unavailable [phone] Carlos Joyner MD Unavailable [phone] Ang Slade MD Unavailable [phone] Lakshmi Wilhelm PA-C Unavailable [phone] Heladio Willoughby MD Primary Care Provider [phone] Heladio Willoughby MD Unavailable Alissa Perez PA-C Unavailable [phone] Lakshmi Wilhelm-C Unavailable [phone] Aidee Valero PA-C Unavailable [phone] Encounter Details Date Type Department Care Team (Late st Contact Info) Description 06/15/2024 [facility] [address] [place] [address] Sarika Calhoun MA Social History [...] [facility] Urology Clinic [address] [place] [address] Carlos Joyner MD [address] [place] [address] 09/13/2024 11:00 AM CDT Office Visit [facility] [address] [place] [address] [place] [address] [place] [address] 09/20/2024 11:00 AM CDT Office Visit [facility] [address] [place] [phone] Sugey Mccoy, PUPIL PERSONNEL SERVICES DIRECTOR SOFTWARE ENGINEERING SUPERVISOR [address] [place] [address] [address] [place] [address] documented as of this encounter Visit Diagnoses Not on filedocumented in this encounter Care Teams Drupal Php Developer Relationship Specialty Start [place] [address] [place] [address] PCP - General 03/05/23 Carlos Joyner MD [address] [place] [address] Urology 12/09/19 Jadon Murray MD [facility] 2530 [facility] S [address] [place] [address] Referring Physician Pediatric Surgery 12/09/19 Maru Villagomez, OTILIO Registered Nurse 12/10/19 Ang Slade MD [address] [address] Urology 04/24/20 Carlos Joyner MD [address] [place] [address] Assigned Surgical Provider 12/24/20 Ang Slade MD [address] [address] Urology 12/18/22 Lakshmi Wilhelm PA-C [address] [place] [address] 651265 Physician Dictaphone Mechanic Urology 02/03/23 [place] [address] [place] [address] Assigned PCP 02/06/23 Alissa Perez PA-C [address] [place] [address] 217855 Physician Dictaphone Mechanic Surgery 09/04/23 Lakshmi Wilhelm PA-C [address] [place] [address] 891585 Physician Dictaphone Mechanic Urology 09/16/23 Aidee Valero PA-C [address] [place] [address] 950485 Assigned Musculoskeletal Provider 04/17/24 Tanisha Marlow 4120 [facility] [address] 03/30/24 documented as of this encounter
--- OUTSIDE RECORDS SUMMARY | 2024-08-03 21:46 | XMS_ITS | Encounter Summary ---
Author Organization [place] Address [address] [place] [address]. [place] [address] Care Team Providers Care Retail Marketing Coordinator Name Role Phone Carlos Joyner MD Unavailable [phone] Jadon Murray MD Unavailable [phone] Maru Villagomez RN Unavailable Unavailable Ang Slade MD Unavailable [phone] Carlos oJyner MD Unavailable [phone] Ang Slade MD Unavailable [phone] Lakshmi Wilhelm PA-C Unavailable [phone] Heladio Willoughby MD Primary Care Provider [phone] Heladio Willoughby MD Unavailable Alissa Perez PA-C Unavailable [phone] Lakshmi Wilhelm PA-C Unavailable [phone] Aidee Valero PA-C Unavailable [phone] Encounter Details Date Type Department Care Team (Late st Contact Info) Description 05/05/2023 [facility] Medical Advice [facility] [address] 4th [place] [address] Rosita Velasco, RN Social History [...] Description 09/07/2024 8:30 AM CDT Virtual Visit [facility] [address] [place] [address] Carlos Joyner MD [address] [place] [address] 09/13/2024 11:00 AM CDT Office Visit [facility] [address] [place] [address] [place] [address] [place], [place] 3010768 09/20/2024 11:00 AM CDT Office Visit [facility] [address] [place] [address] Sugey Mccoy, [employer] HAZMAT TANKER DRIVER DATASTAGE CONSULTANT [address] [place] [address] [address] [place] [address] documented as of this encounter Visit Diagnoses Not on filedocumented in this encounter Care Teams Retail Marketing Coordinator Relationship Specialty Start [place] [address] [place] [address] PCP - General 03/05/23 Carlos Joyner MD [address] [place] [address] Urology 12/09/19 Jadon Murray MD [facility] 2530 [facility] [address] [place] [address] Referring Physician Pediatric Surgery 12/09/19 Maru Villagomez, OTILIO Registered Nurse 12/10/19 Ang Slade MD [address] [address] Urology 04/24/20 Carlos Joyner MD [address] [place] [address] Assigned Surgical Provider 12/24/20 Ang Slade MD [address] [address] Urology 12/18/22 Lakshmi Wilhelm PA-C [address] [place] [address] 944315 Physician Small Electric Engine Technician Urology 02/03/23 [place] [address] [place] [address] Assigned PCP 02/06/23 Alissa Perez PA-C [address] [place] [address] 279555 Physician Small Electric Engine Technician Surgery 09/04/23 Lakshmi Wilhelm PA-C [address] [place] [address] 824375 Physician Small Electric Engine Technician Urology 09/16/23 Aidee Valero PA-C [address] [place] [address] 194545 Assigned Musculoskeletal Provider 04/17/24 Tanisha Marlow 4120 [facility] [address] 03/30/24 documented as of this encounter
--- OUTSIDE RECORDS SUMMARY | 2024-08-03 21:46 | XMS_ITS | Encounter Summary ---
Author Organization [place] Address [address] [place] [address] Care Team Providers Care Comfort Filler Name Role Phone Carlos Joyner MD Unavailable [phone] Jadon Murray MD Unavailable [phone] Maru Villagomez RN Unavailable Unavailable Ang Slade MD Unavailable [phone] Carlos Joyner MD Unavailable [phone] Ang Slade MD Unavailable [phone] Lakshmi WilhelmC Unavailable [phone] Heladio Willoughby MD Primary Care Provider [phone] Heladio Willoughby MD Unavailable Alissa Perez PA-C Unavailable [phone] Lakshmi WilhelmC Unavailable [phone] Aidee ValeroC Unavailable [phone] Encounter Details Date Type Department Care Team (Late st Contact Info) Description 03/30/2024 Telephone [facility] [address] 4th [place] [address] Aidee Valero PA-C [address] [place] [address] Social History Tobacco Use Types Packs/Day [...] Natalie Abdullahi - 03/30/2024 3:23 PM CST [facility] Call Center Phone Message May a detailed message be left on voicemail: yes Reason for Call: Other: Anna is calling from Medical Records at [facility]. She is calling as she wants to know the time frame of records that are being requested? 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 4th [place] [address] Carlos Joyner MD [address] [place] [address] 091315 09/13/2024 11:00 AM CDT Office Visit [facility] [address] [place] [phone] [place] [address] [place], [place] 8116068 09/20/2024 11:00 AM CDT Office Visit [facility] [address] [facility] [place] [phone] Sugey Mccoy APRN [facility] [address] [place] [address] 106 [place], [place] [phone] documented as of this encounter Visit Diagnoses Not on filedocumented in this encounter Care Teams Comfort Filler Relationship Specialty Start Date End Date Heladio [place] [id number] [place] [address] PCP - General 03/05/23 Carlos Joyner MD [address] [place] [address] 349735 Urology 12/09/19 Jadon Murray MD [facility] 2530 [facility] 550 [place] [address] Referring Physician Pediatric Surgery 12/09/19 Maru Villagomez, RN Registered Nurse 12/10/19 Ang Slade MD [address] [place] [address] 394 [place], [place] 736235 Urology 04/24/20 Carlos Joyner MD [address] [place] [address] 363665 Assigned Surgical Provider 12/24/20 Ang Slade MD [address] [place] [address] 480925 Urology 12/18/22 Lakshmi Wilhelm PA-C [address] [place] [address] 274925 Physician Group Therapist Urology 02/03/23 [place] [address] [place] [address] Assigned PCP 02/06/23 Alissa Perez PA-C [address] [place] [address] 988075 Physician Group Therapist Surgery 09/04/23 Lakshmi Wilhelm PA-C [address] [place] [address] 960105 Physician Group Therapist Urology 09/16/23 Aidee Valero PA-C [address] [place] [address] 740595 Assigned Musculoskeletal Provider 04/17/24 Tanisha Marlow 4120 [facility] [address] 03/30/24 documented as of this encounter
--- OUTSIDE RECORDS SUMMARY | 2024-08-03 21:46 | XMS_ITS | Encounter Summary ---
Author Organization [place] Address [address] [place] [address] Care Team Providers Care Power Regulator Name Role Phone Carlos Joyner MD Unavailable [phone] Jadon Murray MD Unavailable [phone] Maru Villagomez RN Unavailable Unavailable Ignacia Duran MD Primary Care Provider Ang Slade MD Unavailable [phone] Carlos Joyner MD Unavailable [phone] Annalise Orta PA-C Unavailable [phone] Ang Slade MD Unavailable [phone] Lakshmi Wilhelm PA-C Unavailable [phone] Heladio Willoughby MD Primary Care Provider [phone] Heladio Willoughby MD Unavailable Alissa Perez PA-C Unavailable [phone] Lakshmi Wilhelm PA-C Unavailable [phone] Aidee Valero PA-C Unavailable [phone] Encounter Details Date Type Department Care Team (Late st Contact Info) Description 07/19/2021 [facility] [place] 775359 [facility] 4th [place] [address] Shyann Rehman Social History Tobacco [...] COVID-19? No / Unsure 06/19/2021 11:16 AM BARREL BRIDGE ASSEMBLER documented as of this encounter Plan of Treatment Upcoming Encounters Date Type Department Care Team (Late st Contact Info) Description 09/07/2024 8:30 AM CDT Virtual Visit [facility] [address] 4th [place] [phone] Carlos Joyner MD [address] [place] [address] 09/13/2024 11:00 AM CDT Office Visit [facility] [address] [place] [address] [place] [address] [place], [place] [phone] 09/20/2024 11:00 AM CDT Office Visit [facility] [place] [address] [place] [phone] Sugey Mccoy, EMERGENCY MEDCL EMT [facility] [address] [place] [address] [phone] documented as of this encounter Visit Diagnoses Not on filedocumented in this encounter Additional Health Concerns Infection Onset Date Last Indicated Resolved Time MRSA Comment:Added from external infection. Pt has had Staph infections but never MRSA from Care everywhere chart review. Removing MRSA .14.06/17/2019 02/06/2023 9:41 AM C DT documented as of this encounter Care Teams Power Regulator Relationship Specialty Start Date End Date Ignacia Duran MD PCP - General Pediatrics 01/20/20 03/04/23 [place] [address] [place] [address] PCP - General 03/05/23 Carlos Joyner MD [address] [place] [address] [id number] Urology 12/09/19 Jadon Murray MD [facility] [address] [phone] Referring Physician Pediatric Surgery 12/09/19 Maru Villagomez, OTILIO Registered Nurse 12/10/19 Ang Slade MD [address] [place] [address] Urology 04/24/20 Carlos Joyner MD [address] [place] [address] 823645 Assigned Surgical Provider 12/24/20 Annalise Orta PA-C 5200 [place] [address] Assigned Cancer Care Provider 05/13/21 11/01/22 Ang Slade MD [address] [place] [address] 123595 Urology 12/18/22 Lakshmi Wilhelm PA-C [address] [place] [address] 397975 Physician Medicine Worker Urology 02/03/23 [place] [address] [place] [address] Assigned PCP 02/06/23 Alissa Perez PA-C [address] [place] [address] 059615 Physician Medicine Worker Surgery 09/04/23 Lakshmi Wilhelm PA-C [address] [place] [address] 611235 Physician Medicine Worker Urology 09/16/23 Aidee Valero PA-C 909 [place], [place] 829495 Assigned Musculoskeletal Provider 04/17/24 Tanisha Marlow 4120 [facility] [address] 03/30/24 documented as of this encounter
--- OUTSIDE RECORDS SUMMARY | 2024-08-03 21:46 | XMS_ITS | Encounter Summary ---
Author Organization [place] Address [address] [place] [address]99 Care Team Providers Care Launch Commander [employer] Name Role Phone Carlos Joyner MD Unavailable [phone] Jadon Murray MD Unavailable [phone] Maru Villagomez RN Unavailable Unavailable Ignacia Duran MD Primary Care Provider [phone] Ang Slade MD Unavailable Carlos Joyner MD Unavailable [phone] Annalise Orta PA-C Unavailable Ang Slade MD Unavailable Lakshmi Wilhelm-C Unavailable [phone] Heladio Willoughby MD Primary Care Provider Heladio Willoughby MD Unavailable Alissa Perez PA-C Unavailable [phone] Lakshmi Wilhelm PA-C Unavailable Aidee Valero PA-C Unavailable Encounter Details Date Type Department Care Team (Late st Contact Info) Description 09/17/2021 [facility] [employer] [facility] Urology Clinic [address] [place] [address] Carlos Joyner MD [address] [place] [address] Social History Tobacco Use Types Packs/Day [...] Description 09/07/2024 8:30 AM CDT Virtual Visit [facility] Urology Clinic [address] [place] [phone] Carlos Joyner MD [address] [place] [address] 218315 09/13/2024 11:00 AM CDT Office Visit [address] [phone] Heladio Willoughby MD [address] [place] [address] [phone] 09/20/2024 11:00 AM CDT Office Visit [facility] Sleep Center [address] [address] Sugey Mccoy APRN [address] 688144 documented as of this encounter Visit Diagnoses Not on filedocumented in this encounter Additional Health Concerns Infection Onset Date Last Indicated Resolved Time MRSA Comment:Added from external infection. Pt has had Staph infections but never MRSA from Care everywhere chart review. Removing MRSA 9.14.06/17/2019 02/06/2023 9:41 AM C DT documented as of this encounter Care Teams Launch Commander [employer] Relationship Specialty Start Date End Date Ignacia Duran MD PCP - General Pediatrics 01/20/20 03/04/23 [place] [address] [place] [address] PCP - General 03/05/23 Carlos Joyner MD [address] [place] [address] Urology 12/09/19 Jadon Murray MD [facility] [address] [address] Referring Physician Pediatric Surgery 12/09/19 Maru Villagomez, OTILIO Registered Nurse 12/10/19 Ang Slade MD [address] [place] [address]88 Urology 04/24/20 Carlos Joyner MD [address] [place] [address] Assigned Surgical Provider 12/24/20 Annalise Orta PA-C 5200 [place] [address] Assigned Cancer Care Provider 05/13/21 11/01/22 Ang Slade MD [address] [id number] Urology 12/18/22 Lakshmi Wilhelm PA-C [address] [place] [address]605 Physician Donor Center Technician Urology 02/03/23 [place] [address] [place] [address] Assigned PCP 02/06/23 Alissa Perez PA-C [address] [place] [address] Physician Donor Center Technician Surgery 09/04/23 Lakshmi Wilhelm PA-C [address] [place] [address]487 Physician Donor Center Technician Urology 09/16/23 Aidee Valero PA-C [address] [place] [address] Assigned Musculoskeletal Provider 04/17/24 Tanisha Marlow 4[address] [facility] [place] [address] 03/30/24 documented as of this encounter
--- OUTSIDE RECORDS SUMMARY | 2024-08-03 21:46 | XMS_ITS | Encounter Summary ---
Author Organization [place] Address [address] [place] [address]. [place] [address] Care Team Providers Care Smt Technician Name Role Phone Carlos Joyner MD Unavailable [phone] Jadon Murray MD Unavailable [phone] Maru Villagomez RN Unavailable Unavailable Ang Slade MD Unavailable [phone] Carlos Joyner MD Unavailable [phone] Ang Slade MD Unavailable [phone] Lakshmi Wilhelm-C Unavailable [phone] Heladio Willoughby MD Primary Care Provider [phone] Heladio Willoughby MD Unavailable Alissa Perez PA-C Unavailable [phone] Lakshmi Wilhelm PA-C Unavailable [phone] Aidee Valero PA-C Unavailable [phone] Encounter Details Date Type Department Care Team (Late st Contact Info) Description 07/23/2024 Telephone [facility] [address] [place] [address] [place] [address] [place] [address] Social History Tobacco Use Types [...] than three times a week 07/16/2024 Attends Mu-Ism Services Not on file 07/16 Active Member of Clubs or Organizations Not on f ile 07/16/2024 Attends Club or Organization Meetings Not on antelmo e 07/16/2024 Marital Status Not on file 07/16/2024 PHQ-2 Answer Date Recorded PHQ-2 Score Incomplete 07/21/2024 [facility] [place] [facility] - Occupational Stress [...] [facility], or couch-surfing.) No 07/16/2024 Are you worried [...] Miscellaneous Notes * Telephone Encounter - Kasia Kang - 07/26/2024 2:50 PM CST Faxed to [employer] and [employer]. Kasia Kang Lead Truck Caterer [facility] ISTICS EXPERT FORENSIC * Telephone Encounter - Heladio Willoughby MD - 07/26/2024 2:18 PM CST Signed. Placed in outgoing box. [facility] ISTICS EXPERT FORENSIC * Telephone Encounter - Kasia Kang - 07/23/2024 4:33 PM CST Placed form in provider's basket for review and signature. Kasia Kang Lead Truck Caterer [facility] ISTICS EXPERT FORENSIC * Telephone Encounter - Eleno Valera - 07/23/2024 3:42 PM CST Forms/Letter Request Type of form/letter: OTHER: [employer] Regarding: Repairs/Replacements,Adjustments as needed to patient owned: Q6 [facility] Do we have the form/letter: Yes: front desk worker in basket Who is the form from? [employer] Where did/will the form come from? form was faxed in When is form/letter needed by: RUPA How would you like the form/letter returned: Patient Notified form requests are processed in 5-7 business days:No Could we send this information to you in [employer] or would you prefer to receive a phone call?: No preference Okay to leave a detailed message?: No at Other phone number: Eleno Valera Patient Tromper [facility] ISTICS EXPERT FORENSIC documented in this encounter Plan of Treatment Upcoming Encounters Date Type Department Care Team (Late st Contact Info) Description 09/07/2024 8:30 AM CDT Virtual Visit [facility] Urology [address] 4th [place] [phone] Carlos Joyner MD [address] [place] [address] 414135 09/13/2024 11:00 AM CDT Office Visit [facility] [address] [place] [phone] [place] [address] [place], [place] [phone] 09/20/2024 11:00 AM CDT Office Visit [facility] Sleep [facility] [address] [place] [address] Sugey Mccoy, ENROBING MACHINE OPERATOR [address] [place], [place] [address] documented as of this encounter Visit Diagnoses Not on filedocumented in this encounter Care Teams Smt Technician Relationship Specialty Start [place] [address] [place] [address] PCP - General 03/05/23 Carlos Joyner MD [address] [place] [address]66 Urology 12/09/19 Jadon Murray MD [facility] 2530 [facility] 550 [place] [address] Referring Physician Pediatric Surgery 12/09/19 Maru Villagomez, RN Registered Nurse 12/10/19 Ang Slade MD 420 [facility] 394 [place], [place] 956575 MD Urology 04/24/20 Carlos Joyner MD [address] [place] [address] 347165 Assigned Surgical Provider 12/24/20 Ang Slade MD 420 [facility] 394 [place], [place] 459655 MD Urology 12/18/22 Lakshmi Wilhelm PA-C [address] [place] [address] 587915 Physician Desk Top Publisher Urology 02/03/23 [place] [address] [place] [address] Assigned PCP 02/06/23 Alissa Perez PA-C [address] [place] [address] 825945 Physician Desk Top Publisher Surgery 09/04/23 Lakshmi Wilhelm PA-C [address] [place] [address] 714635 Physician Desk Top Publisher Urology 09/16/23 Aidee Valero PA-C [address] [place] [address] 71211 Assigned Musculoskeletal Provider 04/17/24 Tanisha Marlow [facility]0 [facility] [address] 03/30/24 documented as of this encounter
--- OUTSIDE RECORDS SUMMARY | 2024-08-03 21:46 | XMS_ITS | Encounter Summary ---
Author Organization [place] Address [address] [place] [address] Care Team Providers Care Instructional Manager Name Role Phone Carlos Joyner MD Unavailable [phone] Jadon Murray MD Unavailable [phone] Maru Villagomez RN Unavailable Unavailable Ang Slade MD Unavailable [phone] Carlos Joyner MD Unavailable [phone] Ang Slade MD Unavailable [phone] Lakshmi Wilhelm PA-C Unavailable [phone] Heladio Willoughby MD Primary Care Provider [phone] Heladio Willoughby MD Unavailable Alissa Perez PA-C Unavailable [phone] Lakshmi Wilhelm PA-C Unavailable [phone] Aidee Valero PA-C Unavailable [phone] Reason for Visit * Reason Onset Date Comments Appointment 03/09/2024 Encounter Details Date Type Department Care Team (Late st Contact Info) Description 03/09/2024 Telephone [facility] Orthopedic [facility] [place] 934719 [facility] 4th [place] [address] Unknown, Doctor, MD Appointment Social [...] Description 09/07/2024 8:30 AM CDT Virtual Visit [facility] Urology Clinic [address] [place] [address] Carlos Joyner MD [address] [place] [address] 09/13/2024 11:00 AM CDT Office Visit [facility] [address] [place] [phone] [place] [address] [place], [place] [phone] 09/20/2024 11:00 AM CDT Office Visit [facility] [address] [place] [phone] Sugey Mccoy, SPINDRAW OPERATOR [facility] [address] [place] [address] [address] [place], [place] 109224 documented as of this encounter Visit Diagnoses Not on filedocumented in this encounter Care Teams Instructional Manager Relationship Specialty Start [place] [address] [place] [address] PCP - General 03/05/23 Carlos Joyner MD [address] [place] [address] 275645 Urology 12/09/19 Jadon Murray MD [facility] 2530 [facility] 550 [place] [address] Referring Physician Pediatric Surgery 12/09/19 Maru Villagomez, OTILIO Registered Nurse 12/10/19 Ang Slade MD [address] [place] [address] 394 [place], [place] 351585 Urology 04/24/20 Carlos Joyner MD [address] [place] [address] Assigned Surgical Provider 12/24/20 Ang Slade MD [address] [place] [address] Urology 12/18/22 Lakshmi Wilhelm PA-C [address] [place] [address] Physician Automotive Customer Experience Advisor Urology 02/03/23 [place] [address] [place] [address] Assigned PCP 02/06/23 Alissa Perez PA-C [address] [place] [address] Physician Automotive Customer Experience Advisor Surgery 09/04/23 Lakshmi Wilhelm PA-C [address] [place] [address] 29898 Physician Automotive Customer Experience Advisor Urology 09/16/23 Aidee Valero PA-C [address] [place] [address] 130255 Assigned Musculoskeletal Provider 04/17/24 Tanisha Marlow 4120 [facility] [address] 03/30/24 documented as of this encounter
--- OUTSIDE RECORDS SUMMARY | 2024-08-03 21:46 | XMS_ITS | Encounter Summary ---
Author Organization [place] Address [address] [place] [address] Care Team Providers Care P 3 Armament/Ordnance Ima Technician Name Role Phone Carlos Joyner MD Unavailable [phone] Jadon Murray MD Unavailable [phone] Maru Villagomez RN Unavailable Unavailable Ang Slade MD Unavailable [phone] Carlos Joyner MD Unavailable [phone] Ang Slade MD Unavailable [phone] Lakshmi Wilhelm PA-C Unavailable Heladoi Willoughby MD Primary Care Provider [phone] Heladio Willoughby MD Unavailable Alissa Perze PA-C Unavailable [phone] Lakshmi Wilhelm PA-C Unavailable [phone] Aidee Valero PA-C Unavailable [phone] Encounter Details Date Type Department Care Team (Late st Contact Info) Description 02/13/2024 [facility] Urology Clinic [address] [place] [address] Carlos Joyner MD [address] [place] [address] Social History Tobacco Use Types Packs/Day [...] Description 09/07/2024 8:30 AM CDT Virtual Visit [facility] Urology [address] [place] [address] Carlos Joyner MD [address] [place] [address] 089475 09/13/2024 11:00 AM CDT [facility] [address] [place] [address] [place] [address] [place] [address] 09/20/2024 11:00 AM CDT Office Visit [facility] [address] [place] [phone] Sugey Mccoy, CHAR [facility] [address] [address] [place], [place] 421424 documented as of this encounter Visit Diagnoses Not on filedocumented in this encounter Care Teams P 3 Armament/Ordnance Ima Technician Relationship Specialty Start [place] [address] [place] [address] PCP - General 03/05/23 Carlos Joyner MD [address] [place] [address] [phone] Urology 12/09/19 Jadon Murray MD [facility] 2530 [facility] 550 [place], [place] [phone] Referring Physician Pediatric Surgery 12/09/19 Maru Villagomez, RN Registered Nurse 12/10/19 Ang Slade MD [address] [place] [address] Urology 04/24/20 Carlos Joyner MD [address] [place] [address] 579885 Assigned Surgical Provider 12/24/20 Ang Slade MD [address] [place] [address] 394 [place] [address] Urology 12/18/22 Lakshmi Wilhelm PA-C [address] [place] [address] 638345 Physician Land Classifier Urology 02/03/23 [place] [address] [facility] [address] Assigned PCP 02/06/23 Alissa Perez PA-C [address] [place] [address] 553475 Physician Land Classifier Surgery 09/04/23 Lakshmi Wilhelm PA-C [address] [place] [address] 529975 Physician Land Classifier Urology 09/16/23 Aidee Valero PA-C [address] [place] [address] 615285 Assigned Musculoskeletal Provider 04/17/24 Tanisha Marlow 4120 [facility] [address] 03/30/24 documented as of this encounter
--- OUTSIDE RECORDS SUMMARY | 2024-08-03 21:46 | XMS_ITS | Clinical Summary ---
Author Organization [facility] Address [address] [place] [address] Care Team Providers Care Stewardess Supervisor Name Role Phone Carlos Joyner MD Unavailable [phone] Jadon Murray MD Unavailable [phone] Maru Villagomez RN Unavailable Unavailable Ang Slade MD Unavailable [phone] Carlos Joyner MD Unavailable [phone] Ang Slade MD Unavailable Lakshmi Wilhelm-C Unavailable Heladio Willoughby MD Primary Care Provider [phone] Heladio Willoughby MD Unavailable Alissa Perez PA-C Unavailable [phone] Lakshmi Wilhelm-C Unavailable [phone] Aidee Valero PA-C Unavailable [phone] Allergies Active Allergy Reactions Criticality Noted Date [...] 1 Refill(s), Maintenance, other Active Wound [facility]) PADSIndications:P ressure ulcer acquired in [facility] Externally apply 1 each topically daily [...] TWICE DAILY 90 tablet 3 024 Active indapamide (LOZOL) 1.25 MG tabletIndications :Hypercalciuria TAKE ONE TABLET BY MOUTH EVERY DAY IN THE MORNING. 90 tablet 025 Active COMPOUNDED NON-CONTROLLED SUBSTANCE (CMPD RX) - PHARMACY TO MIX COMPOUNDED MEDICATIONIndicat ions:Recurrent UTI Instill 30 mL into the bladder via straight catheter once daily per provider instructions. 900 mL 11 Active indapamide (LOZOL) 1.25 MG tabletIndications :Hypercalciuria Take 1 tablet (1.25 mg) by mouth every morning 90 tablet 3 024 2024 Discontinued nitroFURantoin macrocrystal-mono hydrate (MACROBID) 100 MG capsuleIndication s:Recurrent UTI Take 1 capsule (100 mg) by mouth 2 times daily. 14 capsule 024 2024 Discontinued nitroFURantoin macrocrystal-mono hydrate (MACROBID) 100 MG capsuleIndication s:Recurrent UTI Take 1 capsule (100 mg) by mouth 2 times daily. 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 Was on heparin injections. 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 (03/14/2020): Vertebra Absence Congenital Kyphosis (acquired) (postural) 08/04/2008 Overview (03/14/2020): Kyphosis Neurogenic bladder 07/22/2003 Overview (03/05/2023): LW Onset: 58Mjm61 ; Paralysis Bladder Neurogenic bowel 07/22/2003 Overview (03/14/2020): LW Onset: 61Abb55 Paraplegia 07/22/2003 Overview (04/18/2023): 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 07/22/2003 Overview (03/14/2020): LW Onset: 59Abq75 ; Short Stature 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/22/2003 Overview (07/23/2024): Complicated by hydrocephalus, s/p REAL ESTATE PORTFOLIO MANAGER shunt; chiari type 2 malformation, syringomyelia, neurogenic bowel and bladder. At : [facility], aplasia cutis of scalp (pinpoint), R knee contracture, clubbed feet bilaterally, microcephaly, kyphosis. Specialist involved: Adult [facility]ifida [facility] - looking into locations/referrals Adult neurosurgery team - not needed until age 27 (currently following with Dr. Rodgers of [facility]) Adult Urology team - Dr. Joyner of [facility] Adult Sleep Medicine - referral placed Adult Orthopaedics - [facility] Resolved Problems Problem Noted Date Diagnosed Date Resolved Date Acute kidney failure, unspecified 02/10/2020 03/05/2023 Ulcer, surgical 06/07/2011 07/22/2024 Encounters Date Type Department Care Team Description 07/27/2024 Telephone [facility] [place] [address] [place] [phone] Carlos Joyner MD Prior Auth - Medication (COMPOUNDED NON-CONTROLLED SUBSTANCE (CMPD RX) - PHARMACY TO MIX COMPOUNDED MEDICATION--DENIED) 07/26/2024 Medical Correspondence [facility] Information Management [address] [place] [address] [address] [place] [address] Scan, Non-Provider 07/23/2024 [facility] [address] [place] [phone] Heladio Willoughby MD 07/22/2024 Telephone [facility] [address] [place] [address] Heladio Willoughby MD IUD 07/22/2024 [facility] [address] [place] [phone] Heladio Willoughby MD 07/22/2024 Telephone [facility] [address] [phone] Rosita Velasco RN Clinic Care Coordination - Follow-up (Med request) 07/21/2024 4:00 PM WINDOWS SECURITY ENGINEER Office Visit [facility] [address] [place] [phone] Heladio Willoughby MD Encounter for Medicare annual wellness exam (Primary Dx); Cervical cancer screening; Thoracic spina bifida, unspecified hydrocephalus presence (H); Chiari malformation type II (H); Paraplegia (H); S/P REAL ESTATE PORTFOLIO MANAGER shunt; Wheelchair dependence; Morbid obesity (H); Horseshoe kidney; Bilateral nephrolithiasis; Recurrent cystitis; Neurogenic bladder; Neurogenic bowel; control counseling 07/21/2024 Travel 07/16/2024 Travel 07/09/2024 MyC Medical Advice [facility] [address] [phone] Hattie Wing RN 07/05/2024 Refill [facility] [address] [phone] Carlos Joyner MD Medication Refill 06/24/2024 Orders Only [facility] [address] [phone] Carlos Joyner MD Recurrent UTI (Primary Dx) 06/24/2024 Telephone [facility] [address] [phone] Carlos Joyner MD Call Back (Previous message from haku) 06/23/2024 MyC Medical Advice [facility] [address] [phone] Carlos Joyner MD 06/22/2024 Telephone [facility] [address] [place] [address] Heladio Willoughby MD Orders 06/15/2024 MyC Medical Advice [facility] [address] [place] [address] Sarika Calhoun MA 06/11/2024 Travel from Last 3 Months Immunizations Name Administration Dates Next Due DTAP (<7y) 01/18/2008,05/06/2005 DTaP, Unspecified 01/16/2015 DTaP/HepB/IPV 05/27/2003,03/21/2003,2002 Flu, Unspecified 02/26/2016,02/21/2009, 4 Y2o1-03 Novel Flu 03/18/2009 [id number] Novel Flu P-free 03/30/2004,05/27/2003 HEPATITIS A (PEDS [...] Relation Comments Diabetes Father Morbid Obesity Father Bipolar Disorder Mother Relation Status Comments Father Mother Social History [...] than three times a week 07/16/2024 Attends Jew Services Not on file 07/16 Active Member of Clubs or Organizations Not on f ile 07/16/2024 Attends Club or Organization Meetings Not on antelmo e 07/16/2024 Marital Status Not on file 07/16/2024 PHQ-2 Answer Date Recorded PHQ-2 Score Incomplete 07/21/2024 [employer] [facility] [employer] [facility] - Occupational Stress [...] building, in an overnight mcfp, or couch-surfing.) No 07/16/2024 Are you worried [...] Sign Reading Time Taken Comments Blood Pressure 132/73 07/21/2024 3:51 PM WINDOWS SECURITY ENGINEER Pulse 61 07/21/2024 3:44 PM WINDOWS SECURITY ENGINEER Temperature 36.6 C (97.9 F) 07/21/2024 3:44 PM WINDOWS SECURITY ENGINEER Respiratory Rate 18 07/21/2024 3:44 PM WINDOWS SECURITY ENGINEER Oxygen Saturation 99% 07/21/2024 3:44 PM WINDOWS SECURITY ENGINEER Inhaled Oxygen Concentration - - Weight 61.2 kg (135 lb) 03/30/2024 2:01 PM WINDOWS SECURITY ENGINEER Height 147.3 cm (4' 10) 03/30/2024 2:01 PM WINDOWS SECURITY ENGINEER Body Mass Index 28.22 03/30/2024 2:01 PM WINDOWS SECURITY ENGINEER Plan of Treatment Upcoming Encounters Date Type Department Care Team (Late st Contact Info) Description 09/07/2024 8:30 AM CDT Virtual Visit [facility] [address] 4th [place] [phone] Carlos Joyner MD [address] [place], [place] [address] 09/13/2024 11:00 AM CDT Office Visit [facility] [address] [place] [address] [place] [address] [place], [place] [phone] 09/20/2024 11:00 AM CDT Office Visit [facility] [address] [address] Sugey Mccoy APRN [facility] [address] [place] [address] [address] [place] [address] Health Maintenance Due Date Last Done Comments ANNUAL REVIEW OF HM ORDERS 2002 MENINGITIS B IMMUNIZATION (1 of 2 - Standard) 2018 PAP 09/17/2023 PHQ-2 (once per calendar year) 2024 10/15/2023, 06/24/2023, 04/16/2023, Additional history exists DTAP/TDAP/TD IMMUNIZATION (8 - Td or Tdap) 01/16/2025 01/16/2015, 01/16/2015, 01/18/2008, Additional history exists MEDICARE ANNUAL WELLNESS VISIT 07/21/2025 07/21/2024, 04/16/2023 CHLAMYDIA SCREENING 07/15/2028 Postpone d from 2002 (Patient Request) ADVANCE CARE PLANNING 07/22/2029 07/22/2024 , 04/23/2023, 04/18/2023, Additional history exists HEPATITIS C SCREENING 04/16/2043 Postpo florentin from [...] history exists Medical Devices Implanted Type Area Golf Course Laborer Device Identifier Shelf Expiration Date Model / Serial / Lot Stent Ureteral Percuflex Plus [id number] - [id number] Implanted:Qty: 1 on 11/12/2021 by Carlos Joyner MD at [facility] Stent Right: Abdomen [employer] [id number] 12/26/2022 [id number] Ureteral Catheter 5 Bengali Implanted:Qty: 1 on 03/31/2023 by Elizabeth Jacobsen MD at [facility] Right: Ureter 02/02/2026 [id number] Description:5 spanish Uretera l catheter used as a stent in right ureter 5 Bengali Open Ended Catheter Implanted:Qty: 1 on 03/31/2023 by Elizabeth Jacobsen MD at [facility] Left: Ureter 02/19/2026 [id number] / [id number] Explanted Type Area Golf Course Laborer Device Identifier Shelf Expiration Date Model / Serial / Lot Stent Ureteral Percuflex Plus [id number] - [id number] Implanted:Qty: 1 on 05/10/2021 by Carlos Joyner MD at [facility] Explanted:Qty: 1 on 08/09/2021 by Jane Gomez MD at [facility] Stent Right: Urethra [employer] 06/14/2022 [id number] Description:Ureter Stent Ureteral Percuflex Plus [id number] - [id number] Implanted:Qty: 1 on 05/10/2021 by Carlos Joyner MD at [facility] Explanted:Qty: 1 on 08/09/2021 by Jane Gomez MD at [facility] Stent Left: Urethra [employer] 07/25/2022 [id number] Stent Ureteral Percuflex Plus [id number] - [id number] Implanted:Qty: 1 on 08/09/2021 by Jane Gomez MD at [facility] Explanted:Qty: 1 on 11/12/2021 at [facility] Stent Right: Ureter [employer] 02/29/2024 [id number] Stent Ureteral Percuflex Plus [id number] - [id number] Implanted:Qty: 1 on 08/09/2021 by Jane Gomez MD at [facility] Explanted:Qty: 1 on 11/12/2021 at [facility] Stent Right: Ureter [employer] 02/29/2024 [id number] 5 Fr X 22cm Ureteral Stent Explanted:Qty: 1 on 02/07/2020 by Carlos Joyner MD at [facility] COOK 5 Fr X 22cm Ureteral Stent Explanted:Qty: 1 on 02/07/2020 by Carlos Joyner MD at [facility] COOK Procedures Procedure Name Priority Date/Time Associated Diagnosis Comments URINE CULTURE Routine 06/25/2024 9:14 AM WINDOWS SECURITY ENGINEER Recurrent UTI URINE MICROSCOPIC EXAM Routine 06/25/2024 9:14 AM WINDOWS SECURITY ENGINEER Recurrent UTI ROUTINE UA WITH MICROSCOPIC Routine 06/25/2024 9:14 AM WINDOWS SECURITY ENGINEER Recurrent UTI from Last 3 Months Results * (ABNORMAL) UA with Microscopic (06/25/2024 9:14 AM WINDOWS SECURITY ENGINEER) Color Urine Yellow Colorless, Straw, Light Yellow, Yellow 06/25/2024 9:19 AM [facility] Appearance Urine Cloudy(A) Clear 06/25/19 9:19 AM [facility] Glucose Urine Negative Negative mg/dL 06/25/2024 9:19 AM [facility] Bilirubin Urine Negative Negative 9:19 AM [facility] Ketones Urine Negative Negative mg/dL 06/25/2024 9:19 AM [facility] Specific [place] Urine 1.020 1.003 - 1.035 06/25/2024 9:19 AM [facility] Blood Urine Small(A) Negative 06/25/2024 9:19 AM [facility] pH Urine 6.0 5.0 - 7.0 06/25/2024 9:19 AM [facility] Protein Albumin Urine Negative Negative mg/dL 06/25/2024 9:19 AM [facility] Urobilinogen Urine 0.2 0.2, 1.0 E.U./dL 06/25/2024 9:19 AM [facility] Nitrite Urine Positive(A) Negative 06/25/2024 9:19 AM [facility] Leukocyte Esterase Urine Small(A) Negative 06/25/2024 9:19 AM [facility] Urine URINE SPECIMEN FROM URINARY CONDUIT / Unknown Non-blood Collection / Unknown 06/25/2024 9:14 AM WINDOWS SECURITY ENGINEER 06/25/2024 9:15 AM WINDOWS SECURITY ENGINEER Carlos Joyner MD LAB - URINE ORDERABLES Fin al Result LABORATORY [facility] [address] [facility] (no room number, 1st floor of clinic) [place] [address], [facility] * (ABNORMAL) Urine Microscopic Exam (06/25/2024 9:14 AM WINDOWS SECURITY ENGINEER) Bacteria Urine Many(A) None Seen /HPF LINDA 06/25/2024 9:20 AM WINDOWS SECURITY ENGINEER LABORATORY RBC Urine 2-5(A) 0-2 /HPF /HPF LINDA 06/25/2024 9:20 AM WINDOWS SECURITY ENGINEER LABORATORY WBC Urine 10-25(A) 0-5 /HPF /HPF LINDA 06/25/2024 9:20 AM WINDOWS SECURITY ENGINEER LABORATORY Amorphous Crystals Urine Few(A) None Seen /HPF LINDA 06/25/2024 9:20 AM WINDOWS SECURITY ENGINEER [facility] LABORATORY Urine URINE SPECIMEN FROM URINARY CONDUIT / Unknown Non-blood Collection / Unknown 06/25/2024 9:14 AM WINDOWS SECURITY ENGINEER 06/25/2024 9:15 AM WINDOWS SECURITY ENGINEER Carlos Joyner MD LAB - URINE ORDERABLES Fin al Result LABORATORY [facility] [address] [facility] (no room number, 1st floor of clinic) [place] [address], [facility] * (ABNORMAL) Urine Culture (06/25/2024 9:14 AM WINDOWS SECURITY ENGINEER) Culture >100,000 CFU/mL Staphylococcus epidermidis(A) LINDA 06/28/2024 6:49 AM WINDOWS SECURITY ENGINEER [facility] Culture 50,000-100,000 CFU/mL Staphylococcus epidermidis(A) 06/28/2024 6:49 AM WINDOWS SECURITY ENGINEER [facility] Urine URINE SPECIMEN OBTAINED VIA INDWELLING URINARY CATHETER / Unknown Non-blood Collection / Unknown 06/25/2024 9:14 AM WINDOWS SECURITY ENGINEER 06/25/2024 9:15 AM WINDOWS SECURITY ENGINEER Narrative Organism Antibiotic Method Susceptibility Staphylococcus [...] [facility] Inf[facility] Diag. Lab [address] [facility] [place] [address], [facility] from Last 3 Months Insurance [place]ICAID [place] [facility] INDIVIDUAL [facility] INDIVIDUAL [place] [facility] INDIVIDUAL [facility] [place]UAL [place] Advance Directives For more information, please contact: [phone] Documents on File Type Date Recorded Patient Program Lead Expl anation Advance Directives and Living Will [...] continue PREVIOUSLY ORDERED code status Care Teams Stewardess Supervisor Relationship Specialty [place] [address] [place] [address] PCP - General 03/05/23 Carlos Joyner MD [address] [place] [address] Urology 12/09/19 Jadon Murray MD [facility] [address] [facility] [address] [place] [address] Referring Physician Pediatric Surgery 12/09/19 Maru Villagomez, OTILIO Registered Nurse 12/10/19 Ang Slade MD [address] [place] [address] [address] [place], [place] 118475 Urology 04/24/20 Carlos Joyner MD [address] [place] [address] Assigned Surgical Provider 12/24/20 Ang Slade MD [address] [place] [address] [address] [place] [address] Urology 12/18/22 Lakshmi Wilhelm PA-C [address] [place] [address] Physician Field Training Agent Urology 02/03/23 [place] [address] [place] [address] Assigned PCP 02/06/23 Alissa Perez PA-C [address] [place] [address] Physician Field Training Agent Surgery 09/04/23 Lakshmi Wilhelm PA-C [address] [place] [address] Physician Field Training Agent Urology 09/16/23 Aidee Valero PA-C [address] [place] [address] Assigned Musculoskeletal Provider 04/17/24 Tanisha Marlow [address] [facility] [address] 03/30/24
--- OUTSIDE RECORDS SUMMARY | 2024-08-03 21:46 | XMS_ITS | Encounter Summary ---
Author Organization [facility] Address [address] [place] [address] Care Team Providers Care Professional Services Specialist Name Role Phone Carlos Joyner MD Unavailable [phone] Jadon Murray MD Unavailable [phone] Maru Villagomez RN Unavailable Unavailable Ang Slade MD Unavailable [phone] Carlos Joyner MD Unavailable [phone] Ang Slade MD Unavailable [phone] Lakshmi Wilhelm-C Unavailable [phone] Heladio Willoughby MD Primary Care Provider Heladio Willoughby MD Unavailable Alissa Perez PA-C Unavailable [phone] Lakshmi Wilhelm-C Unavailable [phone] Aidee Valero PA-C Unavailable [phone] Reason for Visit * Reason Onset Date Comments Call Back 04/21/2024 Pt still having UTI Symptoms. They are wanting to see about getting a new antibiotic. Please call Nurse manager export at [phone]. Please call Yamini. As they would like to get something done prior to the holiday. Thanks Encounter Details Date Type Department Care Team ([facility] st Contact Info) Description 04/21/2024 Telephone [facility] [address] 4th [place] [address] Carlos Joyner MD [address] [place] [address] Call Back (Pt still having UTI Symptoms. They are wanting to see about getting a new antibiotic. Please call Nurse manager export at [phone]. Please call Yamini. As they would like [...] a new antibiotic. Please call Nurse manager export at [phone]. Please call Yamini. As they would like to get something done prior to the holiday. Thanks Action Taken: Other: uro Travel Screening: Not Applicable Date of Service: TOR/QUALITY documented in this encounter Plan of Treatment Upcoming Encounters Date Type Department Care Team (Late st Contact Info) Description 09/07/2024 8:30 AM CDT Virtual Visit [facility] [address] 4th [place] [phone] Carlos Joyner MD [address] [place] [address] 799105 09/13/2024 11:00 AM CDT Office Visit [facility] [address] [place] [phone] [place] [address] [place], [place] [phone] 09/20/2024 11:00 AM CDT Office Visit [facility] [address] [phone] Sugey Mccoy, CORPORATE [employer] [address] 636914 documented as of this encounter Visit Diagnoses Not on filedocumented in this encounter Care Teams Professional Services Specialist Relationship Specialty Start [place] [address] [place], [place] [phone] PCP - General 03/05/23 Carlos Joyner MD [address] [place] [address] Urology 12/09/19 Jadon Murray MD [facility] [address] [facility] [address] [place] [address] Referring Physician Pediatric Surgery 12/09/19 Maru Villagomez, RN Registered Nurse 12/10/19 Ang Slade MD [address] [place] [address] 394 [place], [place] 940[address] Urology 04/24/20 Carlos Joyner MD [address] [place] [address] [id number] Assigned Surgical Provider 12/24/20 Ang Slade MD [address] [place] [address] 394 [place], [place] 115845 Urology 12/18/22 Lakshmi Wilhelm PA-C [address] [place] [address] 478465 Physician Hand Riveter Urology 02/03/23 [place] [address] [place] [address] Assigned PCP 02/06/23 Alissa Perez PA-C [address] [place] [address] 734185 Physician Hand Riveter Surgery 09/04/23 Lakshmi Wilhelm PA-C [address] [place] [address] 238165 Physician Hand Riveter Urology 09/16/23 Aidee Valero, [facility] [address] [place] [address] Assigned Musculoskeletal Provider 04/17/24 Tanisha Marlow [address] [facility] [address] 03/30/24 documented as of this encounter
--- OUTSIDE RECORDS SUMMARY | 2024-08-03 21:46 | XMS_ITS | Encounter Summary ---
Author Organization [facility] Address [address] [place] [address] Care Team Providers Care Epic Kaleidoscope Analyst Name Role Phone Carlos Joyner MD Unavailable [phone] Jadon Murray MD Unavailable [phone] Maru Villagomez RN Unavailable Unavailable Ignacia Duran MD Primary Care Provider Ang Slade MD Unavailable [phone] Carlos Joyner MD Unavailable [phone] Annalise Orta PA-C Unavailable [phone] Ang Slade MD Unavailable [phone] Lakshmi Wilhelm-C Unavailable [phone] Heladio Willoughby MD Primary Care Provider [phone] Heladio Willoughby MD Unavailable Alissa Perez PA-C Unavailable [phone] Lakshmi Wilhelm PA-C Unavailable [phone] Aidee Valero PA-C Unavailable +[phone] Encounter Details Date Type Department Care Team (Late st Contact Info) Description 06/19/2021 [facility] [address] [address] Jenna Mcfadden, RN Social History [...] COVID-19? No / Unsure 06/19/2021 11:16 AM CONTINUITY DIRECTOR documented as of this encounter Plan of Treatment Upcoming Encounters Date Type Department Care Team (Late st Contact Info) Description 09/07/2024 8:30 AM CDT Virtual Visit [facility] [address] 4th [place] [phone] Carlos Joyner MD [address] [place] [address] 09/13/2024 11:00 AM CDT Office Visit [facility] [address] [place] [address] [phone] [place] [address] [place], [place] [phone] 09/20/2024 11:00 AM CDT Office Visit [facility] [place] [address] [place] [address] [phone] Sugey Mccoy, ORGANIZATIONAL DEVELOPMENT DIRECTOR [address] [phone] documented as of this encounter Visit Diagnoses Not on filedocumented in this encounter Additional Health Concerns Infection Onset Date Last Indicated Resolved Time MRSA Comment:Added from external infection. Pt has had Staph infections but never MRSA from Care everywhere chart review. Removing MRSA 9.14.23 06/17/2019 02/06/2023 9:41 AM C DT documented as of this encounter Care Teams Epic Kaleidoscope Analyst Relationship Specialty Start Date End Date Ignacia Duran MD PCP - General Pediatrics 01/20/20 03/04/23 [place] [address] [place] [address] PCP - General 03/05/23 Carlos Joyner MD [address] [place] [address] 255615 Urology 12/09/19 Jadon Murray MD [facility] [address] [address] Referring Physician Pediatric Surgery 12/09/19 Maru Villagomez, OTILIO Registered Nurse 12/10/19 Ang Slade MD [address] [place] [address] Urology 04/24/20 Carlos Joyner MD [address] [place] [address] 10712 Assigned Surgical Provider 12/24/20 Annalise Orta PA-C 5200 [place] [address] Assigned Cancer Care Provider 05/13/21 11/01/22 Ang Slade MD [address] [place] [address] 650905 Urology 12/18/22 Lakshmi Wilhelm PA-C [address] [place] [address] 550715 Physician Habitat Biologist Urology 02/03/23 [place] [address] [place] [address] Assigned PCP 02/06/23 Alissa Perez PA-C [address] [place] [address] 827345 Physician Habitat Biologist Surgery 09/04/23 Lakshmi Wilhelm PA-C [address] [place] [address] 573475 Physician Habitat Biologist Urology 09/16/23 Aidee Valero PA-C [address] [place], [place] 476175 Assigned Musculoskeletal Provider 04/17/24 Tanisha Marlow 4120 [facility] [address] 03/30/24 documented as of this encounter
--- OUTSIDE RECORDS SUMMARY | 2024-08-03 21:46 | XMS_ITS | Encounter Summary ---
Author Organization [place] Address [address] [place] [address] 50721 Care Team Providers Care Plastic Straightening Roll Operator Name Role Phone Carlos Joyner MD Unavailable [phone] Jadon Murray MD Unavailable [phone] Maru Villagomez RN Unavailable Unavailable Ang Slade MD Unavailable [phone] Carlos Joyner MD Unavailable [phone] Ang Slade MD Unavailable [phone] Lakshmi Wilhelm PA-C Unavailable [phone] Heladio Willoughby MD Primary Care Provider [phone] Heladio Willoughby MD Unavailable Alissa Perez PA-C Unavailable [phone] Lakshmi Wilhelm PA-C Unavailable [phone] Aidee Valero PA-C Unavailable [phone] Encounter Details Date Type Department Care Team (Late st Contact Info) Description 06/25/2023 [facility] [address] [place] [address] Carlos Joyner MD [address] [place] [address] Social History Tobacco Use Types Packs/Day [...] Description 09/07/2024 8:30 AM CDT Virtual Visit [facility] Urology [address] [place] [address] Carlos Joyner MD [address] [place] [address] 612205 09/13/2024 11:00 AM CDT Office Visit [facility] [address] [place] [address] [place] [address] [place] [address] 09/20/2024 11:00 AM CDT Office Visit [facility] [address] [place] [phone] Sugey Mccoy, FUNERAL SERVICE PRACTITIONER/EMBALMER [facility] [address] [address] [place], [place] 561654 documented as of this encounter Visit Diagnoses Not on filedocumented in this encounter Care Teams Plastic Straightening Roll Operator Relationship Specialty Start [place] [address] [place] [address] PCP - General 03/05/23 Carlos Joyner MD [address] [place] [address] 870915 Urology 12/09/19 Jadon Murray MD [facility] 2530 [facility] [address] [place], [place] [phone] Referring Physician Pediatric Surgery 12/09/19 Maru Villagomez, RN Registered Nurse 12/10/19 Ang Slade MD [address] [place] [address] Urology 04/24/20 Carlos Joyner MD [address] [place] [address] 091425 Assigned Surgical Provider 12/24/20 Ang Slade MD [address] [place] [address] 394 [place] [address] Urology 12/18/22 Lakshmi Wilhelm PA-C [address] [place] [address] 634625 Physician Automatic Riveting Machine Operator Urology 02/03/23 [place] [address] [facility] [place] [address] Assigned PCP 02/06/23 Alissa Perez PA-C [address] [place] [address] 756215 Physician Automatic Riveting Machine Operator Surgery 09/04/23 Lakshmi Wilhelm PA-C [address] [place] [address] 160065 Physician Automatic Riveting Machine Operator Urology 09/16/23 Aidee Valero PA-C [address] [place] [address] 045475 Assigned Musculoskeletal Provider 04/17/24 Tanisha Marlow 4120 [facility] [address] 03/30/24 documented as of this encounter
--- OUTSIDE RECORDS SUMMARY | 2024-08-03 21:46 | XMS_ITS | Clinical Summary ---
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5 F) 07/12/2021 1:30 PM BANK VAULT ATTENDANT Respiratory Rate 18 07/03/2015 5:27 PM BANK VAULT ATTENDANT Oxygen Saturation 98% 07/12/2021 1:30 PM BANK VAULT ATTENDANT Inhaled Oxygen Concentration - - Weight 61.2 kg (135 lb) 07/03/2015 5:27 PM BANK VAULT ATTENDANT Height - - Body Mass Index - [...] 05/02/2022, 03/27/2021, 09/18/2020, Additional history exists Influenza Vaccine (#1) 2024 , 03/22/2020, 06/17/2019, Additional history exists Tetanus [...] ONLY MEDICARE [place] ONLY MEDICAID [address] [id number] [place] [address] Advance Directives Documents on File Type Date Recorded Patient Television Antenna Installer Expl anation Power of Stunt Woman 06/24/2023 1:00 PM Care Teams Supervisor Drilling And Shooting Relationship Specialty Start Date End Date Ignacia Duran MD PCP - General Pediatric 10/07/19
--- OUTSIDE RECORDS SUMMARY | 2024-08-03 21:46 | XMS_ITS | Encounter Summary ---
Author Organization [place] Address [address] [place] [address] Care Team Providers Care Direct Support Specialist Name Role Phone Carlos Joyner MD Unavailable [phone] Jadon Murray MD Unavailable [phone] Maru Villagomez RN Unavailable Unavailable Ang Slade MD Unavailable [phone] Carlos Joyner MD Unavailable [phone] Ang Slade MD Unavailable [phone] Lakshmi Wilhelm-C Unavailable Heladio Willoughby MD Primary Care Provider [phone] Heladio Willoughby MD Unavailable Alissa Perez PA-C Unavailable [phone] Lakshmi Wilhelm-C Unavailable Aidee Valero PA-C Unavailable [phone] Reason for Visit * Reason Onset Date Comments Prior Auth - Medication 07/27/2024 COMPOUND ED NON-CONTROLLED SUBSTANCE (CMPD RX) - PHARMACY TO MIX COMPOUNDED MEDICATION--DENIED Encounter Details Date Type Department Care Team (Late st Contact Info) Description 07/27/2024 [facility] [address] [place] [address] Carlos Joyner MD [address] [place] [address] Prior Auth - Medication (COMPOUNDED NON-CONTROLLED SUBSTANCE (CMPD RX) - PHARMACY TO MIX COMPOUNDED MEDICATION--DENIED) Social History Tobacco Use Types Packs/Day Years [...] than three times a week 07/16/2024 Attends [employer] Services Not on file 07/16 Active Member of Clubs or Organizations Not on f ile 07/16/2024 Attends Club or Organization Meetings Not on antelmo e 07/16/2024 Marital Status Not on file 07/16/2024 PHQ-2 Answer Date Recorded PHQ-2 Score Incomplete 07/21/2024 [facility] - Occupational Stress Questionnaire Answer [...] building, in an overnight custodial, or couch-surfing.) No 07/16/2024 Are you worried [...] encounter Miscellaneous Notes * Telephone Encounter - Daly Eaton - 08/03/2024 12:07 PM CDT Images from the original note were not included. PRIOR AUTHORIZATION DENIED Medication: COMPOUNDED NON-CONTROLLED (CMPD RX) - PHARMACY TO MIX COMPOUNDED MEDICATION Insurance Company: [employer] D - Denial Date: 07/30/2024 Denial Reason(s): Excluded Appeal Information: * Telephone Encounter - Daly Eaton - 07/29/2024 3:17 PM CST Images from the original note were not included. PA Initiation Medication: COMPOUNDED NON-CONTROLLED (CMPD RX) - PHARMACY TO MIX COMPOUNDED MEDICATION Insurance Company: [employer] D - Pharmacy Filling the Rx: [facility] - [place], [place] - [address] Filling Pharmacy Filling Pharmacy Start Date: 07/29/2024 ATIONAL ADVISER * Telephone Encounter - Yovana Burt - 07/27/2024 1:05 PM CST A prior authorization is needed for the following compounded medications prescribed. Please complete a prior authorization with the information included below. Medication: Compounded Gentamicin 480 mg/L Bladder Irrigation Ingredients NDCs Quantities Gentamicin Sulfate 40 mg/mL Solution [address]-83 10.800 mLs Sodium Chloride 0.9% Solution [address]-13 889.200 mLs BD Syringe 50 mL [id number] 30.000 grams RX #: Reason for Rejection:[id number] Pharmacy Insurance plan: getbetter! Part D BIN #:[id number] ID #:[id number] PCN #:[id number] Phone #:[phone] Pharmacy Please advise the [facility] @ [phone] when the prior authorization is approved or denied. Additionally, this medication is no longer covered by the secondary [facility] [place] plan (what the patient now has), so there may be a copay associated with the medication once it is approved. Thank you for your time. [email or web address] [email or web address] [address] [place] [address] ATIONAL ADVISER documented in this encounter Plan of Treatment Upcoming Encounters Date Type Department Care Team (Late st Contact Info) Description 09/07/2024 8:30 AM CDT Virtual Visit [facility] Urology Clinic [address] [phone] Carlos Joyner MD [address] [place] [address] 09/13/2024 11:00 AM CDT Office Visit [facility] [address] [place] [address] [place] [address] [place] [address] 09/20/2024 11:00 AM CDT Office Visit [facility] [address] [place] [phone] Sugey Mccoy, FOOD AND BEVERAGE DIRECTOR STRIPE MARKER [address] [place], [place] [address] documented as of this encounter Visit Diagnoses Not on filedocumented in this encounter Care Teams Direct Support Specialist Relationship Specialty Start [place] [address] [place] [address] PCP - General 03/05/23 Carlos Joyner MD [address] [place] [address] 620205 Urology 12/09/19 Jadon Murray MD [facility] [address] [place] [address] Referring Physician Pediatric Surgery 12/09/19 Maru Villagomez, OTILIO Registered Nurse 12/10/19 Ang Slade MD [address] [place] [address] 316285 Urology 04/24/20 Carlos Joyner MD [address] [place] [address]335 Assigned Surgical Provider 12/24/20 Ang Slade MD [address] [place] [address] Urology 12/18/22 Lakshmi Wilhelm PA-C [address] [place] [address] 909685 Physician Driller Multiple Spindle Urology 02/03/23 [place] [address] [place] [address] Assigned PCP 02/06/23 Alissa Perez PA-C [address] [place] [address] 411995 Physician Driller Multiple Spindle Surgery 09/04/23 Lakshmi Wilhelm PA-C [address] [place] [address] 744775 Physician Driller Multiple Spindle Urology 09/16/23 Aidee Valero PA-C [address] [place] [address] 320035 Assigned Musculoskeletal Provider 04/17/24 Tanisha Marlow 4120 [facility] [address] 03/30/24 documented as of this encounter
--- OUTSIDE RECORDS SUMMARY | 2024-08-03 21:46 | XMS_ITS | Encounter Summary ---
Author Organization [facility] Address [address] [place] [address]37 Care Team Providers Care Straw Hat Brim Raiser Operator Name Role Phone Carlos Joyner MD Unavailable [phone] Jadon Murray MD Unavailable [phone] Maru Villagomez RN Unavailable Unavailable Ignacia Duran MD Primary Care Provider Ang Slade MD Unavailable [phone] Carlos Joyner MD Unavailable [phone] Annalise Orta PA-C Unavailable [phone] Ang Slade MD Unavailable [phone] Lakshmi Wilhelm-C Unavailable [phone] Heladio Willoughby MD Primary Care Provider Heladio Willoughby MD Unavailable Alissa Perez PA-C Unavailable [phone] Lakshmi Wilhelm-C Unavailable [phone] Aidee Valero PA-C Unavailable [phone] Reason for Visit * Reason Onset Date Comments Call Back 06/27/2021 Bladder infectio n Encounter Details Date Type Department Care Team (Late st Contact Info) Description 06/27/2021 Telephone [facility] Urology Clinic [address] 4th [place] [address] Carlos Joyner MD [address] [place] [address] Call Back (Bladder infection) Social History [...] COVID-19? No / Unsure 06/19/2021 11:16 AM COMB SETTER documented as of this encounter Miscellaneous Notes * Telephone Encounter - Karen Sheth - 06/27/2021 12:22 PM CST [facility] Phone Message May a detailed message [...] Center ([facility]): uro Travel Screening: Not Applicable SETTER documented in this encounter Plan of Treatment Upcoming Encounters Date Type Department Care Team (Late st Contact Info) Description 09/07/2024 8:30 AM CDT Virtual Visit [facility] [address] 4th [place] [phone] Carlos Joyner MD [address] [place] [address] 09/13/2024 11:00 AM CDT Office Visit [facility] [address] [place] [address] [place] [address] [place] [address] 09/20/2024 11:00 AM CDT Office Visit [facility] [address] [place] [address] Sugey Mccoy, INVESTIGATION CLERK [facility] [address] [place] [address] [address] [place], [place] 8670[address] documented as of this encounter Visit Diagnoses Not on filedocumented in this encounter Additional Health Concerns Infection Onset Date Last Indicated Resolved Time MRSA Comment:Added from external infection. Pt has had Staph infections but never MRSA from Care everywhere chart review. Removing MRSA 02.06.23 06/17/2019 02/06/2023 9:41 AM C DT documented as of this encounter Care Teams Straw Hat Brim Raiser Operator Relationship Specialty Start Date End Date Ignacia Duran MD PCP - General Pediatrics 01/20/20 03/04/23 [place] [address] [place] [address] PCP - General 03/05/23 Carlos Joyner MD [address] [place] [address] Urology 12/09/19 Jadon Murray MD [facility] 2530 [facility] 550 [place] [address] Referring Physician Pediatric Surgery 12/09/19 Maru Villagomez, OTILIO Registered Nurse 12/10/19 Ang Slade MD [address] [place] [address] 394 [place] [address] Urology 04/24/20 Carlos Joyner MD [address] [place] [address] 33565 Assigned Surgical Provider 12/24/20 Annalise Orta PA-C 5200 [place] [address] Assigned Cancer Care Provider 05/13/21 11/01/22 Ang Slade MD [address] [place] [address] Urology 12/18/22 Lakshmi Wilhelm PA-C [address] [place] [address] 20616 Physician Top Dyeing Machine Loader Urology 02/03/23 [place] [address] [place] [address] Assigned PCP 02/06/23 Alissa Perez PA-C [address] [place] [address]606 Physician Top Dyeing Machine Loader Surgery 09/04/23 Lakshmi Wilhelm PA-C [address] [place] [address] Physician Top Dyeing Machine Loader Urology 09/16/23 Aidee Valero PA-C [address] [place] [address] 265795 Assigned Musculoskeletal Provider 04/17/24 Tanisha Marlow 4120 [facility] [address] 03/30/24 documented as of this encounter
--- OUTSIDE RECORDS SUMMARY | 2024-08-03 21:46 | XMS_ITS | Encounter Summary ---
Author Organization [facility] Address [address] [place] [address] Care Team Providers Care Space Officer Name Role Phone Carlos Joyner MD Unavailable [phone] Jadon Murray MD Unavailable [phone] Maru Villagomez RN Unavailable Unavailable Ignacia Duran MD Primary Care Provider Ang Slade MD Unavailable [phone] Carlos Joyner MD Unavailable [phone] Annalise Orta PA-C Unavailable [phone] Ang Slade MD Unavailable [phone] Lakshmi Wilhelm PA-C Unavailable [phone] Heladio Willoughby MD Primary Care Provider [phone] Heladio Willoughby MD Unavailable Alissa Perez PA-C Unavailable [phone] Lakshmi Wilhelm PA-C Unavailable [phone] Aidee Valero PA-C Unavailable [phone] Encounter Details Date Type Department Care Team (Late st Contact Info) Description 07/31/2021 [facility] [address] 5th [place] [address] Makenzie Drummond, RN Social History [...] CDT Virtual Visit [facility] [address] 4th [place] [phone] Carlos Joyner MD [address] [place] [address] 408535 09/13/2024 11:00 AM CDT Office Visit [facility] [address] [place] [phone] [place] [address] [place], [place] 3891768 09/20/2024 11:00 AM CDT Office Visit [facility] [address] [place] [phone] Sugey Mccoy, SUPERVISOR PYROTECHNIC LOADING [facility] [address] [place] [address] 106 [place], [place] [phone] documented as of this encounter Visit Diagnoses Not on filedocumented in this encounter Additional Health Concerns Infection Onset Date Last Indicated Resolved Time MRSA Comment:Added from external infection. Pt has had Staph infections but never MRSA from Care everywhere chart review. Removing MRSA 02.06.23 06/17/2019 02/06/2023 9:41 AM C DT documented as of this encounter Care Teams Space Officer Relationship Specialty Start Date End Date Ignacia Duran MD PCP - General Pediatrics 01/20/20 03/04/23 [place] [address] [place] [address] PCP - General 03/05/23 Carlos Joyner MD [address] [place] [address] Urology 12/09/19 Jadon Murray MD [facility] [address] [address] Referring Physician Pediatric Surgery 12/09/19 Maru Villagomez, RN Registered Nurse 12/10/19 Ang Slade MD [address] [place] [address] 384435 Urology 04/24/20 Carlos Joyner MD [address] [place] [address] 285425 Assigned Surgical Provider 12/24/20 Annalise Orta PA-C 5200 [place] [address] Assigned Cancer Care Provider 05/13/21 11/01/22 Ang Slade MD [address] [place] [address] 723805 Urology 12/18/22 Lakshmi Wilhelm PA-C [address] [place] [address] Physician Senior Drupal Developer Urology 02/03/23 [place] [address] [place] [address] Assigned PCP 02/06/23 Alissa Perez PA-C [address] [place] [address] Physician Senior Drupal Developer Surgery 09/04/23 Lakshmi Wilhelm PA-C [address] [place] [address] Physician Senior Drupal Developer Urology 09/16/23 Aidee Valero PA-C [address] [place] [address] 10[address] Assigned Musculoskeletal Provider 04/17/24 Tanisha Marlow 4120 [facility] [address] 03/30/24 documented as of this encounter
--- OUTSIDE RECORDS SUMMARY | 2024-08-03 21:46 | XMS_ITS | Encounter Summary ---
Author Organization [place] Address [address] [place] [address] Care Team Providers Care Dressmaker Garment Fitter Name Role Phone Carlos Joyner MD Unavailable [phone] Jadon Murray MD Unavailable [phone] Maru Villagomez RN Unavailable Unavailable Ang Slade MD Unavailable [phone] Carlos Joyner MD Unavailable [phone] Ang Slade MD Unavailable [phone] Lakshmi Wilhelm PA-C Unavailable [phone] Heladio Willoughby MD Primary Care Provider [phone] Heladio Willoughby MD Unavailable Alissa Perez PA-C Unavailable [phone] Lakshmi Wilhelm PA-C Unavailable [phone] Aidee Valero PA-C Unavailable [phone] Reason for Visit * Reason Onset Date Comments Clinic Care Coordination - Follow-up 07/22/2024 Med request Encounter Details Date Type Department Care Team (Late st Contact Info) Description 07/22/2024 Telephone [facility] [place] [id number] [facility] 4th [place] [address] Rosita Velasco RN Clinic Care Coordination - Follow-up (Med request) Social History Tobacco Use Types Packs/Day Years [...] than three times a week 07/16/2024 Attends Faith Services Not on file 07/16 Active Member of Clubs or Organizations Not on f ile 07/16/2024 Attends Club or Organization Meetings Not on antelmo e 07/16/2024 Marital Status Not on file 07/16/2024 PHQ-2 Answer Date Recorded PHQ-2 Score Incomplete 07/21/2024 [facility] of Occupat ional Health - [...] building, in an overnight jail, or couch-surfing.) No 07/16/2024 Are you worried [...] Telephone Encounter - Rosita Velasco RN - 07/22/2024 11:45 AM CST RN received call from Tanisha pt's guardian requesting refill of patient's gentamicin irrigations. Sent to compounding pharmacy. Pt has annual appointment with Dr. Joyner in August. OTILIO Becker Speech Writer- Urology [phone] OLE BEVELER documented in this encounter Plan of Treatment Upcoming Encounters Date Type Department Care Team (Late st Contact Info) Description 09/07/2024 8:30 AM CDT Virtual Visit [facility] [address] [phone] Carlos Joyner MD [address] [place] [address] 783765 09/13/2024 11:00 AM CDT Office Visit [facility] [address] [place] [address] [place] [address] [place], [place] 4116268 09/20/2024 11:00 AM CDT Office Visit [address] [phone] Sugey Mccoy APRN [address] 075894 documented as of this encounter Visit Diagnoses Diagnosis Recurrent UTI- Primary Urinary tract infection, site not specified documented in this encounter Care Teams Dressmaker Garment Fitter Relationship Specialty [place] [address] [place] [address] PCP - General 03/05/23 Carlos Joyner MD [address] [place] [address]36 Urology 12/09/19 Jadon Murray MD [facility] [address] [id number] Referring Physician Pediatric Surgery 12/09/19 Maru Villagomez, RN Registered Nurse 12/10/19 Ang Slade MD [address] [place] [address] 18006 Urology 04/24/20 Carlos Joyner MD [address] [place] [address] 897485 Assigned Surgical Provider 12/24/20 Ang Slade MD [address] [place] [address] 801475 Urology 12/18/22 Lakshmi Wilhelm PA-C [address] [place] [address] 701155 Physician Hot Water Heater Installer Urology 02/03/23 [place] [address] [place] [address] Assigned PCP 02/06/23 Alissa Perez PA-C [address] [place] [address] 256775 Physician Hot Water Heater Installer Surgery 09/04/23 Lakshmi Wilhelm PA-C [address] [place] [address] [id number] Physician Hot Water Heater Installer Urology 09/16/23 Aidee Valero PA-C [address] [place] [address] [id number] Assigned Musculoskeletal Provider 04/17/24 Tanisha Marlow 4120 [facility] [address] 03/30/24 documented as of this encounter
--- OUTSIDE RECORDS SUMMARY | 2024-08-03 21:46 | XMS_ITS | Encounter Summary ---
Author Organization [place] Address [address] [place] [address] Care Team Providers Care Cashiers Bussers Food Runners Name Role Phone Carlos Joyner MD Unavailable [phone] Jadon Murray MD Unavailable [phone] Maru Villagomez RN Unavailable Unavailable Ang Slade MD Unavailable [phone] Carlos Joyner MD Unavailable [phone] Ang Slade MD Unavailable [phone] Lakshmi Wilhelm-C Unavailable [phone] Heladio Willoughby MD Primary Care Provider [phone] Heladio Willoughby MD Unavailable Alissa Perez PA-C Unavailable [phone] Lakshmi Wilhelm-C Unavailable [phone] Aidee Valero PA-C Unavailable [phone] Encounter Details Date Type Department Care Team (Late st Contact Info) Description 07/01/2023 [facility] [address] [place] [address] Joao Arceo MA Social History Tobacco [...] Upcoming Encounters Date Type Department Care Team ([facility] st Contact Info) Description 09/07/2024 8:30 AM CDT Virtual Visit [facility] Urology Clinic [address] [place] [address] Carlos Joyner MD [address] [place] [address] 09/13/2024 11:00 AM CDT Office Visit [facility] [address] [place] [address] [place] [address] [place] [address] 09/20/2024 11:00 AM CDT Office [facility] [address] [place] [address] Sugey Mccoy, WATCH CRYSTAL MOLDER [facility] [address] [place], [place] [address]E [address] [place] [address] documented as of this encounter Visit Diagnoses Not on filedocumented in this encounter Care Teams Cashiers Bussers Food Runners Relationship Specialty Start [place] [address] [place] [address] PCP - General 03/05/23 Carlos Joyner MD [address] [place] [address] 537[address] Urology 12/09/19 Jadon Murray MD [facility] 2530 [facility] [address] [place] [address] Referring Physician Pediatric Surgery 12/09/19 Maru Villagomez, OTILIO Registered Nurse 12/10/19 Ang Slade MD [address] [address] Urology 04/24/20 Carlos Joyner MD [address] [place] [address] 80136 Assigned Surgical Provider 12/24/20 Ang Slade MD [address] [address] Urology 12/18/22 Lakshmi Wilhelm PA-C [address] [place] [address]395 Physician Pitch Gatherer Urology 02/03/23 [place] [address] [place] [address] Assigned PCP 02/06/23 Alissa Perez PA-C [address] [place] [address] Physician Pitch Gatherer Surgery 09/04/23 Lakshmi Wilhelm PA-C [address] [place] [address] Physician Pitch Gatherer Urology 09/16/23 Aidee Valero PA-C [address] [place] [address] 10768 Assigned Musculoskeletal Provider 04/17/24 Tanisha Marlow 4120 [facility] [address] 03/30/24 documented as of this encounter
--- OUTSIDE RECORDS SUMMARY | 2024-08-03 21:46 | XMS_ITS | Encounter Summary ---
Author Organization [place] Address [address] [place] [address]. [place] [address] Care Team Providers Care Steel Fixer Name Role Phone Carlos Joyner MD Unavailable [phone] Jadon Murray MD Unavailable [phone] Maru Villagomez RN Unavailable Unavailable Ang Slade MD Unavailable [phone] Carlos Joyner MD Unavailable [phone] Ang Slade MD Unavailable [phone] Lakshmi Wilhelm-C Unavailable [phone] Heladio Willoughby MD Primary Care Provider [phone] Heladio Willoughby MD Unavailable Alissa Perez PA-C Unavailable [phone] Lakshmi Wilhelm PA-C Unavailable [phone] Aidee Valero PA-C Unavailable [phone] Encounter Details Date Type Department Care Team (Late st Contact Info) Description 07/22/2024 Telephone [facility] [address] [place] [address] [place] [address] [place] [address] Social History Tobacco Use Types [...] than three times a week 07/16/2024 Attends Shinto Services Not on file 07/16 Active Member of Clubs or Organizations Not on f ile 07/16/2024 Attends Club or Organization Meetings Not on antelmo e 07/16/2024 Marital Status Not on file 07/16/2024 PHQ-2 Answer Date Recorded PHQ-2 Score Incomplete 07/21/2024 [facility] of Occupat ional Health - Occupational Stress [...] building, in an overnight chcf, or couch-surfing.) No 07/16/2024 Are you worried [...] Telephone Encounter - Kasia Kang - 07/26/2024 2:51 PM CST Faxed. Kasia Kang Lead Cyber Forensics Analyst [facility] WAY EQUIPMENT OPERATOR * Telephone Encounter - Heladio Willoughby MD - 07/26/2024 2:21 PM CST Provided paper prescription for electric wheelchair with seating assessment. Please fax/mail (to address listed in last office visit on 07/21/24 (under HPI)) as appropriate. Thanks, Heladio Edler. [facility] WAY EQUIPMENT OPERATOR * Telephone Encounter - Mercy Feliz, RN - 07/22/2024 3:30 PM RAILWAY EQUIPMENT OPERATOR Called guardian to clarify questions below. 1) Tanisha (guardian) states that she was told by neurosurgery in January 2024, that pt can stay with them until she is 27. Yashira would not like pt to switch to [facility] or [facility] until she is 27. Per neurosurgery, pt to return in 1-2 years, no concerns at this time. No referral needed at this time. 2) Guardian states she will talk with pt about BC. Tanisha states that pt is on the bus right now and does not want to have to talk to her about it in public. Will call back to schedule IUD and PAP. requesting this appointment be at least 1 hour. Routing separate telephone encounter to TC's so they can help schedule pt when call back. 3) Tanisha states that the previous wheelchair orders were written as a script. Please state in the script that it is for electric wheelchair and seating assessment. Tanisha would like this faxed to her at [phone]. 4) Tanisha states that lab staff could not find vein for 5 min. Tried in L arm and L hand. No luck. Advised to go to [facility] for draw. Pt will got to [facility] on Friday to get blood drawn. Routing to Dr. Leija. Please please order for script and send via fax to yasemin manleyan. YOLA Salinas, RN [facility] 07/22/2024 at 4:09 [address] EQUIPMENT OPERATOR * Telephone Encounter - Heladio Willoughby MD - 07/22/2024 2:48 PM CST Ar Nurse Triage, Just saw this patient yesterday. She has complex hx of spina bifida with complications requiring several specialists. She is currently in [facility] to [facility] with adult specialists ([facility] through [facility] I am trying to find out how to send in a referral for her to continue receiving spina bifida specific cares. It was recommended that she see [facility]. Can you please look into this and anne up referral? Can you also please call guardian and let her know the following: I sent in a referral for her to establish/see adult Neurosurgery. Please provide her with the referral information. It was recommended that she see Dr. Khanna with [facility] Neurosurgery. She was interested in alternative BC methods (currently on Depo which is not great for bone density, especially in patient who is wheelchair bound). Please let her know that I would strongly recommend hormonal IUD which we can place in clinic at same time as her pap smear. If patient is agreeable, please help them set up appt for IUD insertion/pap smear. If she is not, I can send in e-consult to heavy forging machine operator for alternative consideration for menstrual suppression. I have placed a DME order to replace her existing power wheelchair with referral to PT/OT. I am notexactly sure this is the correct next step. Can you please review order and/or perhaps give PT/OT acall to make sure this is correct way to order this? If so, please let guardian know that she wouldneed to set up PT/OT appointment to start the wheelchair replacement process. It appears she did not have blood work done yesterday. Can either obtain during pap smear appointment or earlier with lab only visit. Whew! I think that is all. Thanks so much for all your help! Let me know if you think CC would be better served for these situations above and I can place the referral. Heladio Willoughby MD [facility] [place] 07/22/2024 WAY EQUIPMENT OPERATOR documented in this encounter Plan of Treatment Upcoming Encounters Date Type Department Care Team (Late st Contact Info) Description 09/07/2024 8:30 AM CDT Virtual Visit [facility] [address] [place] [phone] Carlos Joyner MD [address] [place] [address] 194005 09/13/2024 11:00 AM CDT Office Visit [facility] [address] [place] [address] [place] [address] [place], [place] [phone] 09/20/2024 11:00 AM CDT Office Visit [facility] [address] [phone] Sugey Mccoy, NESTOR [address] [place] [address] documented as of this encounter Visit Diagnoses Diagnosis Paraplegia (H)- Primary Paraplegia Thoracic spina bifida, unspecified hydrocephalus presence (H) Wheelchair dependence documented in this encounter Care Teams Steel Fixer Relationship Specialty [place] [address] [place] [address] PCP - General 03/05/23 Carlos Joyner MD [address] [place] [address] Urology 12/09/19 Jadon Murray MD [facility] [address] [address] Referring Physician Pediatric Surgery 12/09/19 Maru Villagomez, RN Registered Nurse 12/10/19 Ang Slade MD [address] [place] [address] 807765 Urology 04/24/20 Carlos Joyner MD [address] [place] [address] 13584 Assigned Surgical Provider 12/24/20 Ang Slade MD [address] [place] [address] 60782 Urology 12/18/22 Lakshmi Wilhelm PA-C [address] [place] [address] 06180 Physician Teacher Drama Urology 02/03/23 [place] [address] [place] [address] Assigned PCP 02/06/23 Alissa Perez PA-C [address] [place] [address] 312175 Physician Teacher Drama Surgery 09/04/23 Lakshmi Wilhelm PA-C 909 [place], [place] [phone] Physician Teacher Drama Urology 09/16/23 Aidee Valero PA-C [address] [place] [address] [id number] Assigned Musculoskeletal Provider 04/17/24 aTnisha Marlow 4120 [facility] [id number] 03/30/24 documented as of this encounter
--- OUTSIDE RECORDS SUMMARY | 2024-08-03 21:46 | XMS_ITS | Encounter Summary ---
Author Organization [place] Address [address] [place] [address]. [place] [address] Care Team Providers Care Model Maker Firearms Name Role Phone Carlos Joyner MD Unavailable [phone] Jadon Murray MD Unavailable [phone] Maru Villagomez RN Unavailable Unavailable Ang Slade MD Unavailable [phone] Carlos Joyner MD Unavailable [phone] Ang Slade MD Unavailable [phone] Lakshmi Wilhelm-C Unavailable [phone] Heladio Willoughby MD Primary Care Provider [phone] Heladio Willoughby MD Unavailable Alissa Perez PA-C Unavailable [phone] Lakshmi Wilhelm-C Unavailable [phone] Aidee Valero PA-C Unavailable [phone] Reason for Visit * Reason Onset Date Comments Forms 02/06/2024 [facility] Education Cooperative - Medication Authorization Form Encounter Details Date Type Department Care Team (Late st Contact Info) Description 02/06/2024 [facility] [address] [place] [address] [place] [address] [place] [address] Forms ([facility] Education Time Recorder... Social History Tobacco Use Types Packs/Day Years [...] * Telephone Encounter - Kasia Kang - 02/06/2024 1:08 PM CDT Forms/Letter Request Type of form/letter: School Do we have the form/letter: Yes: Medication Authorization Form Who is the form from? [facility] (if other please explain) Where did/will the form come from? form was sent via [employer] When is form/letter needed by: [facility] How would you like the form/letter returned: [employer] Printed forms and placed in provider's basket for review and signature Kasia Gutierrez Lead Wastewater Process Engineer [facility] documented in this encounter Plan of Treatment Upcoming Encounters Date Type Department Care Team (Late st Contact Info) Description 09/07/2024 8:30 AM CDT Virtual Visit [facility] Urology Clinic [address] 4th [place] [phone] Carlos Joyner MD [address] [place] [address] 09/13/2024 11:00 AM CDT Office Visit [facility] [address] [place] [phone] [place] [address] [place], [place] [phone] 09/20/2024 11:00 AM CDT Office Visit [facility] [place] [address] [place] [address] Sugey Mccoy, POWER LINEWORKER[address] 674464 documented as of this encounter Visit Diagnoses Not on filedocumented in this encounter Care Teams Model Maker Firearms Relationship Specialty [place] [address] [place] [address] PCP - General 03/05/23 Carlos Joyner MD [address] [place] [address] Urology 12/09/19 Jadon Murray MD [facility] [address] [address] Referring Physician Pediatric Surgery 12/09/19 Maru Villagomez, RN Registered Nurse 12/10/19 Ang Slade MD [address] [place] [address] MD Urology 04/24/20 Carlos Joyner MD [address] [place] [address] 908085 Assigned Surgical Provider 12/24/20 Ang Slade MD [address] [place] [address] Urology 12/18/22 Lakshmi Wilhelm PA-C [address] [place] [address] 962715 Physician Cattle Broker Urology 02/03/23 [place] [address] [place] [address] Assigned PCP 02/06/23 Alissa Perez PA-C [address] [place] [address] 129595 Physician Cattle Broker Surgery 09/04/23 Lakshmi Wilhelm PA-C [address] [place] [address] 805255 Physician Cattle Broker Urology 09/16/23 Aidee Valero PA-C [address] [place] [address] 337675 Assigned Musculoskeletal Provider 04/17/24 Tanisha Marlow 4120 [facility] [address] 03/30/24 documented as of this encounter
--- OUTSIDE RECORDS SUMMARY | 2024-08-03 21:46 | XMS_ITS | Encounter Summary ---
Author Organization [place] Address [address] [place] [address] Care Team Providers Care Endorsement Clerk Name Role Phone Carlos Joyner MD Unavailable [phone] Jadon Murray MD Unavailable + [phone] Maru Villagomez RN Unavailable Unavailable Ang Slade MD Unavailable [phone] Carlos Joyner MD Unavailable [phone] Ang Slade MD Unavailable [phone] Lakshmi Wilhelm-C Unavailable [phone] Heladio Willoughby MD Primary Care Provider [phone] Heladio Willoughby MD Unavailable Alissa Perez PA-C Unavailable [phone] Lakshmi Wilhelm-C Unavailable [phone] Aidee Valero PA-C Unavailable [phone] Encounter Details Date Type Department Care Team (Late st Contact Info) Description 07/26/2024 Medical Correspondence [facility] Health Information Management [address] [facility] [address] [place] [address] Scan, Non-Provider Social History Tobacco Use Types [...] than three times a week 07/16/2024 Attends Sabianist Services Not on file 07/16 Active Member of Clubs or Organizations Not on f ile 07/16/2024 Attends Club or Organization Meetings Not on antelmo e 07/16/2024 Marital Status Not on file 07/16/2024 PHQ-2 Answer Date Recorded PHQ-2 Score Incomplete 07/21/2024 [facility] Questionnaire Answer Date Recorded [...] [facility] [address] 4th [place] [address] Carlos Joyner MD [address] [place] [address] 09/13/2024 11:00 AM CDT Office Visit [facility] [address] [place] [address] [place] [address] [place], [place] 7061168 09/20/2024 11:00 AM CDT Office Visit [facility] Sleep [address] [place] [phone] Sugey Mccoy, EDGER MACHINE OPERATOR [address] [place], [place] 276[address] documented as of this encounter Visit Diagnoses Not on filedocumented in this encounter Care Teams Endorsement Clerk Relationship Specialty [place] [address] [place], [place] 9369268 PCP - General 03/05/23 Carlos Joyner MD [address] [place] [address] Urology 12/09/19 Jadon Murray MD [facility] [address] [place] [address] Referring Physician Pediatric Surgery 12/09/19 Maru Villagomez, RN Registered Nurse 12/10/19 Ang Slade MD [address] [place] [address] 276175 Urology 04/24/20 Carlos Joyner MD [address] [place] [address] 923825 Assigned Surgical Provider 12/24/20 Ang Slade MD [address] [place] [address] 226755 Urology 12/18/22 Lakshmi Wilhelm PA-C [address] [place] [address] 154725 Physician Salon Customer Experience Specialist Urology 02/03/23 [place] [address] [place] [address] Assigned PCP 02/06/23 Alissa Perez PA-C [address] [place] [address] 908385 Physician Salon Customer Experience Specialist Surgery 09/04/23 Lakshmi Wilhelm PA-C [address] [place] [address] 389765 Physician Salon Customer Experience Specialist Urology 09/16/23 Aidee Valero PA-C [address] [place] [address] 965025 Assigned Musculoskeletal Provider 04/17/24 Tanisha Marlow 4120 [facility] [address] 03/30/24 documented as of this encounter
--- OUTSIDE RECORDS SUMMARY | 2024-08-03 21:47 | XMS_ITS | Encounter Summary ---
Author Organization [place] Address [address] [place] [address]. [place] [address] Care Team Providers Care Fine Wire Drawer Name Role Phone Carlos Joyner MD Unavailable [phone] Jadon Murray MD Unavailable [phone] Maru Villagomez RN Unavailable Unavailable Ang Slade MD Unavailable +[phone] Carlos Joyner MD Unavailable [phone] Ang Slade MD Unavailable [phone] Lakshmi Wilhelm-C Unavailable [phone] Heladio Willoughby MD Primary Care Provider [phone] Heladio Willoughby MD Unavailable Alissa Perez PA-C Unavailable [phone] Lakshmi Wilhelm-C Unavailable [phone] Aidee Valero PA-C Unavailable +[phone] Reason for Visit * Reason Onset Date Comments IUD 07/22/2024 Encounter Details Date Type Department Care Team (Late st Contact Info) Description 07/22/2024 Telephone [facility] [address] [place] [address] [place] [address] [place] [address] IUD Social History Tobacco Use Types Packs/Day Years [...] than three times a week 07/16/2024 Attends [employer] Not on file 07/16 Active Member of Clubs or Organizations Not on f ile 07/16/2024 Attends Club or Organization Meetings Not on antelmo e 07/16/2024 Marital Status Not on file 07/16/2024 PHQ-2 Answer Date Recorded PHQ-2 Score Incomplete 07/21/2024 [facility] of Occupat ional Health - Occupational Stress [...] building, in an overnight fpc, or couch-surfing.) No 07/16/2024 Are you worried [...] encounter Miscellaneous Notes * Telephone Encounter - Mercy Feliz RN - 07/22/2024 4:10 PM INVERTED BLOCK OPERATOR TC's: Dr. Leija recommended pt get IUD. Called guardian and guardian stated that she will talk with pt and call back if they would like to proceed. When Tanisha (guardian) calls back please help schedulethis appointment. Dr. Leija would like PAP done at the same time and would like this appointment to be at least 1 hr long. Cad Technician not sure how to schedule this so routing to TC's as FYI for when guardian calls back. (See other telephone encounter from 07/22 for more details) YOLA Salinas, RN [facility] 07/22/2024 at 4:12 PM RTED BLOCK OPERATOR documented in this encounter Plan of Treatment Upcoming Encounters Date Type Department Care Team (Late st Contact Info) Description 09/07/2024 8:30 AM CDT Virtual Visit [facility] [address] [place] [address] Carlos Joyner MD [address] [place] [address] 09/13/2024 11:00 AM CDT Office Visit [facility] [address] [place] [address] [place] [address] [place], [place] 8694868 09/20/2024 11:00 AM CDT Office Visit [facility] [address] [place] [address] Sugey Mccoy, DIGITAL MARKETING ANALYST CERTIFIED SUBSTANCE ABUSE COUNSELOR [address] [place] [address] [address] [place] [address] documented as of this encounter Visit Diagnoses Not on filedocumented in this encounter Care Teams Fine Wire Drawer Relationship Specialty Start [place] [address] [place] [address] PCP - General 03/05/23 Carlos Joyner MD [address] [place] [address] Urology 12/09/19 Jadon Murray MD [facility] [address] [facility] [address] [place] [address] Referring Physician Pediatric Surgery 12/09/19 Maru Villagomez, OTILIO Registered Nurse 12/10/19 Ang Slade MD [address] [address] Urology 04/24/20 Carlos Joyner MD [address] [place] [address] Assigned Surgical Provider 12/24/20 Ang Slade MD [address] [address] Urology 12/18/22 Lakshmi Wilhelm PA-C [address] [place] [address] 245475 Physician Sourcing Manager Urology 02/03/23 [place] [address] [place] [address] Assigned PCP 02/06/23 Alissa Perez PA-C [address] [place] [address] 060075 Physician Sourcing Manager Surgery 09/04/23 Lakshmi Wilhelm PA-C [address] [place] [address] 912005 Physician Sourcing Manager Urology 09/16/23 Aidee Valero PA-C [address] [place] [address] 028095 Assigned Musculoskeletal Provider 04/17/24 Tanisha Marlow 4120 [facility] [address] 03/30/24 documented as of this encounter
--- OUTSIDE RECORDS SUMMARY | 2024-08-03 21:47 | XMS_ITS | Encounter Summary ---
Author Organization [place] Address [address] [place] [address] Care Team Providers Care Interstate Bus Driver Name Role Phone Carlos Joyner MD Unavailable [phone] Jadon Murray MD Unavailable [phone] Maru Villagomez RN Unavailable Unavailable Ignacia Duran MD Primary Care Provider Ang Slade MD Unavailable +[phone] Carlos Joyner MD Unavailable [phone] Annalise Orta PA-C Unavailable +[phone] Ang Slade MD Unavailable [phone] Lakshmi Wilhelm-C Unavailable [phone] Heladio Willoughby MD Primary Care Provider [phone] Heladio Willoughby MD Unavailable Alissa Perez PA-C Unavailable [phone] Lakshmi Wilhelm PA-C Unavailable [phone] Aidee Valero PA-C Unavailable [phone] Encounter Details Date Type Department Care Team (Late st Contact Info) Description 10/02/2021 [facility] [address] [place] [address] Analisa Palacio, RN Social History [...] Description 09/07/2024 8:30 AM CDT Virtual Visit [facility] [address] [place] [address] Carlos Joyner MD [address] [place] [address] 639495 09/13/2024 11:00 AM CDT Office Visit [facility] [address] [place] [address] [place] [address] [place] [address] 09/20/2024 11:00 AM CDT Office Visit [facility] [address] [phone] Sugey Mccoy APRN [address] [place] [address] documented as of this encounter Visit Diagnoses Not on filedocumented in this encounter Additional Health Concerns Infection Onset Date Last Indicated Resolved Time MRSA Comment:Added from external infection. Pt has had Staph infections but never MRSA from Care everywhere chart review. Removing MRSA 9.14.23 06/17/2019 02/06/2023 9:41 AM C DT documented as of this encounter Care Teams Interstate Bus Driver Relationship Specialty Start Date End Date Ignacia Duran MD PCP - General Pediatrics 01/20/20 03/04/23 [place] [address] [place] [address] PCP - General 03/05/23 Carlos Joynre MD [address] [place] [address] Urology 12/09/19 Jadon Murray MD [facility] [address] [address] Referring Physician Pediatric Surgery 12/09/19 Maru Villagomez, RN Registered Nurse 12/10/19 Ang Slade MD [address] [address] Urology 04/24/20 Carlos Joyner MD [address] [place] [address] Assigned Surgical Provider 12/24/20 Annalise Orta PA-C 5200 [place] [address] Assigned Cancer Care Provider 05/13/21 11/01/22 Ang Slade MD [address] [address] Urology 12/18/22 Lakshmi Wilhelm PA-C 9 [place] [address] Physician Blind Slat Stapling Machine Operator Urology 02/03/23 [place] [address] [place] [address] Assigned PCP 02/06/23 Alissa Perez PA-C [address] [place] [address] Physician Blind Slat Stapling Machine Operator Surgery 09/04/23 Lakshmi Wilhelm PA-C [address] [place] [address] Physician Blind Slat Stapling Machine Operator Urology 09/16/23 Aidee Valero PA-C [address] [place] [address] 697765 Assigned Musculoskeletal Provider 04/17/24 Tanisha Marlow 4120 [facility] [address] 03/30/24 documented as of this encounter
--- OUTSIDE RECORDS SUMMARY | 2024-08-03 21:47 | XMS_ITS | Encounter Summary ---
Author Organization [place] Address [address] [place] [address] Care Team Providers Care Signs Cleaner Name Role Phone Carlos Joyner MD Unavailable [phone] Jadon Murray MD Unavailable [phone] Maru Villagomez RN Unavailable Unavailable Ignacia Duran MD Primary Care Provider Ang Slade MD Unavailable Carlos Joyner MD Unavailable [phone] Annalise Orta PA-C Unavailable [phone] Ang Slade MD Unavailable Lakshmi Wilhelm-C Unavailable [phone] Heladio Willoughby MD Primary Care Provider Heladio Willoughby MD Unavailable Alissa Perez PA-C Unavailable [phone] Lakshmi Wilhelm PA-C Unavailable [phone] Aidee Valero PA-C Unavailable Encounter Details Date Type Department Care Team (Late st Contact Info) Description 10/01/2021 [facility] [address] [place] [address] Carlos Joyner MD [address] [place] [address] Social History Tobacco Use Types Packs/Day [...] AM CDT Virtual Visit [facility] [address] [place] [address] Carlos Joyner MD [address] [place] [address] 09/13/2024 11:00 AM CDT Office Visit [facility] [address] [place] [phone] [place] [address] [place], [place] 655[address] 09/20/2024 11:00 AM CDT Office Visit [facility] [address] [phone] Sugey Mccoy, INSOLE PRESSER [address] [address] documented as of this encounter Visit Diagnoses Not on filedocumented in this encounter Additional Health Concerns Infection Onset Date Last Indicated Resolved Time MRSA Comment:Added from external infection. Pt has had Staph infections but never MRSA from Care everywhere chart review. Removing MRSA 02.06.23 06/17/2019 02/06/2023 9:41 AM C DT documented as of this encounter Care Teams Signs Cleaner Relationship Specialty Start Date End Date Ignacia Duran MD PCP - General Pediatrics 01/20/20 03/04/23 [place] [address] [facility] [place] [address] PCP - General 03/05/23 Carlos Joyner MD [address] [place] [address] Urology 12/09/19 Jadon Murray MD [facility] [address] [address] Referring Physician Pediatric Surgery 12/09/19 Maru Villagomez, RN Registered Nurse 12/10/19 Ang Slade MD [address] [place] [address] Urology 04/24/20 Carlos Joyner MD [address] [place] [address] Assigned Surgical Provider 12/24/20 Annalise Orta PA-C 5200 [place] [address] Assigned Cancer Care Provider 05/13/21 11/01/22 Ang Slade MD [address] [place] [address] Urology 12/18/22 Lakshmi Wilhelm PA-C [address] [place] [address] Physician Pest Control Supervisor Urology 02/03/23 [place] [address] [place] [address] Assigned PCP 02/06/23 Alissa Perez PA-C [address] [place] [address] 476635 Physician Pest Control Supervisor Surgery 09/04/23 Lakshmi Wilhelm PA-C [address] [place] [address] 210815 Physician Pest Control Supervisor Urology 09/16/23 Aidee Valero PA-C [address] [place] [address] 592985 Assigned Musculoskeletal Provider 04/17/24 Tanisha Marlow 4120 [facility] [address] 03/30/24 documented as of this encounter
--- OUTSIDE RECORDS SUMMARY | 2024-08-03 21:47 | XMS_ITS | Encounter Summary ---
Author Organization [place] Address [address] [place] [address] Care Team Providers Care Powerhouse Engineer Name Role Phone Carlos Joyner MD Unavailable [phone] Jadon Murray MD Unavailable [phone] Maru Villagomez RN Unavailable Unavailable Ang Slade MD Unavailable [phone] Carlos Joyner MD Unavailable [phone] Ang Slade MD Unavailable [phone] Lakshmi Wilhelm-C Unavailable [phone] Heladio Willoughby MD Primary Care Provider [phone] Heladio Willoughby MD Unavailable Alissa Perez PA-C Unavailable [phone] Lakshmi Wilhelm-C Unavailable [phone] Aidee Valero PA-C Unavailable [phone] Encounter Details Date Type Department Care Team [...] than three times a week 07/16/2024 Attends Baptism Services Not on file 02/21 /2025 Active Member of Clubs or Organizations Not on f ile 07/16/2024 Attends Club or Organization Meetings Not on antelmo e 07/16/2024 Marital Status Not on file 07/16/2024 PHQ-2 Answer Date Recorded PHQ-2 Score 0 06/24/2023 [facility] [place] of Occupat ional Health - Occupational Stress [...] in an overnight skilled nursing, or couch-surfing.) No 07/16/2024 Are you worried [...] Description 09/07/2024 8:30 AM CDT Virtual Visit [facility] [place] [address] [facility] 4th [place] [address] Carlos Joyner MD [address] [place] [address] 09/13/2024 11:00 AM CDT Office Visit [facility] [address] [place] [address] [place] [address] [place], [place] 1598168 09/20/2024 11:00 AM CDT Office Visit [facility] Sleep [address] [place] [phone] Sugey Mccoy, TRAFFIC SIGNAL MECHANIC [address] [place], [place] 0[address]164 documented as of this encounter Visit Diagnoses Not on filedocumented in this encounter Care Teams Powerhouse Engineer Relationship Specialty Start Date End Date Heladio [place] [address] [place] [address] [id number] PCP - General 03/05/23 Carlos Joyner MD [address] [place] [address] Urology 12/09/19 Jadon Murray MD [facility] 2530 [facility] 550 [place] [address] Referring Physician Pediatric Surgery 12/09/19 Maru Villagomez, OTILIO Registered Nurse 12/10/19 Ang Slade MD [address] [place] [address] 394 [place], [place] 461065 Urology 04/24/20 Carlos Joyner MD [address] [place] [address] 642765 Assigned Surgical Provider 12/24/20 Ang Slade MD [address] [place] [address] Urology 12/18/22 Lakshmi Wilhelm PA-C [address] [place] [address] 492155 Physician Lifestyle Coordinator Urology 02/03/23 [place] [address] [place] [address] Assigned PCP 02/06/23 Alissa Perez PA-C [address] [place] [address] 878695 Physician Lifestyle Coordinator Surgery 09/04/23 Lakshmi Wilhelm PA-C [address] [place] [address] Physician Lifestyle Coordinator Urology 09/16/23 Aidee Valero PA-C [address] [place] [address] 062925 Assigned Musculoskeletal Provider 04/17/24 Tanisha Marlow 4120 [facility] [address] 03/30/24 documented as of this encounter
--- OUTSIDE RECORDS SUMMARY | 2024-08-03 21:47 | XMS_ITS | Encounter Summary ---
Author Organization [place] Address [address] [place] [address]. [place] [address] Care Team Providers Care Drying Oven Attendant Name Role Phone Carlos Joyner MD Unavailable [phone] Jadon Murray MD Unavailable [phone] Maru Villagomez RN Unavailable Unavailable Ang Slade MD Unavailable [phone] Carlos Joyner MD Unavailable [phone] Ang Slade MD Unavailable [phone] Lakshmi Wilhelm PA-C Unavailable [phone] Heladio Willoughby MD Primary Care Provider [phone] Heladio Willoughby MD Unavailable Alissa Perez PA-C Unavailable [phone] Lakshmi Wilhelm-C Unavailable [phone] Aidee Valero PA-C Unavailable [phone] Encounter Details Date Type Department Care Team (Late st Contact Info) Description 07/09/2024 [facility] Medical Advice [facility] [address] [place] [address] Hattie Wing, RN Social History [...] [facility] Contact Info) Description 09/07/2024 8:30 AM CDT Virtual Visit [facility] [address] [place] [address] Carlos Joyner MD [address] [place] [address] 09/13/2024 11:00 AM CDT Office Visit [facility] [address] [place] [address] [place] [address] [place] [address] 09/20/2024 11:00 AM CDT Office Visit [facility] [address] [place] [address] Sugey Mccoy, LUNCHROOM FOOD SERVICE SUPERVISOR WATER TAXI DRIVER [address] [place] [address] [address] [place] [address] documented as of this encounter Visit Diagnoses Not on filedocumented in this encounter Care Teams Drying Oven Attendant Relationship Specialty [place] [address] [place] [address] PCP - General 03/05/23 Carlos Joyner MD [address] [place] [address] Urology 12/09/19 Jadon Murray MD [facility] 2530 [facility] [address] [place] [address] Referring Physician Pediatric Surgery 12/09/19 Maru Villagomez, OTILIO Registered Nurse 12/10/19 Ang Slade MD [address] [address] Urology 04/24/20 Carlos Joyner MD [address] [place] [address] Assigned Surgical Provider 12/24/20 Ang Slade MD [address] [address] Urology 12/18/22 Lakshmi Wilhelm PA-C [address] [place] [address] 965875 Physician Jewelry Cutter Urology 02/03/23 [place] [address] [place] [address] Assigned PCP 02/06/23 Alissa Perez PA-C [address] [place] [address] 133975 Physician Jewelry Cutter Surgery 09/04/23 Lakshmi Wilhelm PA-C [address] [place] [address] 858855 Physician Jewelry Cutter Urology 09/16/23 Aidee Valero PA-C [address] [place] [address] 912585 Assigned Musculoskeletal Provider 04/17/24 Tanisha Marlow 4120 [facility] [address] 03/30/24 documented as of this encounter
--- OUTSIDE RECORDS SUMMARY | 2024-08-03 21:47 | XMS_ITS | Encounter Summary ---
Author Organization [place] Address [address] [place] [address] Care Team Providers Care Netbackup Administrator Name Role Phone Carlos Joyner MD Unavailable [phone] Jadon Murray MD Unavailable [phone] Maru Villagomez RN Unavailable Unavailable Ignacia Duran MD Primary Care Provider Ang Slade MD Unavailable [phone] Carlos Joyner MD Unavailable +[phone] Annalise Orta PA-C Unavailable [phone] Ang Slade MD Unavailable [phone] Lakshmi Wilhelm-C Unavailable [phone] Heladio Willoughby MD Primary Care Provider Heladio Willoughby MD Unavailable Alissa Perez PA-C Unavailable [phone] Lakshmi Wilhelm PA-C Unavailable [phone] Aidee Valero PA-C Unavailable [phone] Reason for Visit * Reason Onset Date Comments Orders 01/01/2022 Syringes - 35 an d 60 ml requested Encounter Details Date Type Department Care Team (Late st Contact Info) Description 01/01/2022 Telephone [facility] [address] 4th [place] [address] Carlos Joyner MD [address] [place] [address] Orders (Syringes - 35 and 60 ml [...] order to [facility] at [phone]. Thank you. Action Taken: Other: Urology Travel Screening: Not Applicable documented in this encounter Plan of Treatment Upcoming Encounters Date Type Department Care Team (Late st Contact Info) Description 09/07/2024 8:30 AM CDT Virtual Visit [facility] [address] 4th [place] [phone] Carlos Joyner MD [address] [place] [address] 985685 09/13/2024 11:00 AM CDT Office Visit [facility] [address] [place] [phone] [place] [address] [place], [place] 0248868 09/20/2024 11:00 AM CDT Office Visit [facility] [address] [address] Sugey Mccoy APRN [address] 460664 documented as of this encounter Visit Diagnoses Not on filedocumented in this encounter Additional Health Concerns Infection Onset Date Last Indicated Resolved Time MRSA Comment:Added from external infection. Pt has had Staph infections but never MRSA from Care everywhere chart review. Removing MRSA 02.06.23 06/17/2019 02/06/2023 9:41 AM C DT documented as of this encounter Care Teams Netbackup Administrator Relationship Specialty Start Date End Date Ignacia Duran MD PCP - General Pediatrics 01/20/20 03/04/23 [place] [address] [place] [address] PCP - General 03/05/23 Carlos Joyner MD [address] [place] [address] Urology 12/09/19 Jadon Murray MD [facility] 2530 [facility] [address] [address] Referring Physician Pediatric Surgery 12/09/19 Maru Villagomez, RN Registered Nurse 12/10/19 Ang Slade MD [address] [place] [address] Urology 04/24/20 Carlos Joyner MD [address] [place] [address] Assigned Surgical Provider 12/24/20 Annalise Orta PA-C 5200 [place] [address] Assigned Cancer Care Provider 05/13/21 11/01/22 Ang Slade MD [address] [place] [address] Urology 12/18/22 Lakshmi Wilhelm PA-C [address] [place] [address] Physician Fiber Heel Piece Shaper Urology 02/03/23 [place] [address] [place] [address] Assigned PCP 02/06/23 Alissa Perez PA-C [address] [place] [address] Physician Fiber Heel Piece Shaper Surgery 09/04/23 Lakshmi Wilhelm PA-C [address] [place] [address] 276115 Physician Fiber Heel Piece Shaper Urology 09/16/23 Aidee Valero PA-C [address] [place] [address] 679255 Assigned Musculoskeletal Provider 04/17/24 Tanisha Marlow 4120 [facility] [address] 03/30/24 documented as of this encounter
--- OUTSIDE RECORDS SUMMARY | 2024-08-03 21:47 | XMS_ITS | Encounter Summary ---
Author Organization [facility] Address [address] [place] [address] 16048 Care Team Providers Care Movie Critic Name Role Phone Carlos Joyner MD Unavailable [phone] Jadon Murray MD Unavailable [phone] Maru Villagomez RN Unavailable Unavailable Ignacia Duran MD Primary Care Provider [phone] Ang Slade MD Unavailable [phone] Carlos Joyner MD Unavailable [phone] Annalise Orta PA-C Unavailable [phone] Ang Slade MD Unavailable [phone] Lakshmi Wilhelm-C Unavailable [phone] Heladio Willoughby MD Primary Care Provider [phone] Heladio Willoughby MD Unavailable Alissa Perez PA-C Unavailable [phone] Lakshmi Wilhelm PA-C Unavailable [phone] Aidee Valero PA-C Unavailable +[phone] Encounter Details Date Type Department Care Team (Late st Contact Info) Description 04/16/2021 [facility] [address] [place] [address] Berna Britton Social History Tobacco [...] Description 09/07/2024 8:30 AM CDT Virtual Visit [facility] Urology Clinic [address] [place] [phone] Carlos Joyner MD [address] [place] [address] 09/13/2024 11:00 AM CDT Office Visit [facility] [address] [place] [address] [place] [address] [place] [address] 09/20/2024 11:00 AM CDT Office Visit [facility] Sleep Center [address] [address] Sugey Mccoy APRN [address] 075124 documented as of this encounter Visit Diagnoses Not on filedocumented in this encounter Additional Health Concerns Infection Onset Date Last Indicated Resolved Time MRSA Comment:Added from external infection. Pt has had Staph infections but never MRSA from Care everywhere chart review. Removing MRSA 02.06.23 06/17/2019 02/06/2023 9:41 AM C DT documented as of this encounter Care Teams Movie Critic Relationship Specialty Start Date End Date Ignacia Duran MD PCP - General Pediatrics 01/20/20 03/04/23 [place] [address] [place] [address] PCP - General 03/05/23 Carlos Joynre MD [address] [place] [address] 24066 Urology 12/09/19 Jadon Murray MD [facility] [address] [address] Referring Physician Pediatric Surgery 12/09/19 Maru Villagomez, RN Registered Nurse 12/10/19 Ang Slade MD [address] [place] [address] 94215 Urology 04/24/20 Carlos Joyner MD [address] [place] [address]67[address] Assigned Surgical Provider 12/24/20 Annalise Orta PA-C 5200 [place] [address] Assigned Cancer Care Provider 05/13/21 11/01/22 Ang Slade MD [address] [place] [address] 36871 Urology 12/18/22 Lakshmi Wilhelm PA-C [address] [place] [address]36 Physician Machinery Mechanic Urology 02/03/23 [place] [address] [place] [address] Assigned PCP 02/06/23 Alissa Perez PA-C [address] [place] [address] 641575 Physician Machinery Mechanic Surgery 09/04/23 Lakshmi Wilhelm PA-C [address] [place] [address] 204505 Physician Machinery Mechanic Urology 09/16/23 Aidee Valero PA-C [address] [place] [address] 875355 Assigned Musculoskeletal Provider 04/17/24 Tanisha Marlow 4120 [facility] [address] 03/30/24 documented as of this encounter
--- OUTSIDE RECORDS SUMMARY | 2024-08-03 21:47 | XMS_ITS | Encounter Summary ---
Author Organization [facility] Address [address] [place] [address] Care Team Providers Care Descriptive Catalog Librarian Name Role Phone Carlos Joyner MD Unavailable [phone] Jadon Murray MD Unavailable +[phone] Maru Villagomez RN Unavailable Unavailable Ignacia Duran MD Primary Care Provider [phone] Carlos Joyner MD Unavailable [phone] Ang Slade MD Unavailable [phone] Ang Slade MD Unavailable [phone] Carlos Joyner MD Unavailable [phone] Annalise Orta-C Unavailable [phone] Ang Slade MD Unavailable [phone] Lakshmi Wilhelm-C Unavailable [phone] Heladio Willoughby MD Primary Care Provider [phone] Heladio Willoughby MD Unavailable Alissa Perez PA-C Unavailable [phone] Lakshmi Wilhelm-C Unavailable [phone] Aidee Valero PA-C Unavailable [phone] Reason for Visit * Reason Comments Orders Encounter Details Date Type Department Care Team (Late st Contact Info) Description 02/02/[address] [facility] [address] [address] Maru Villagomez, RN Social History Tobacco Use [...] Description 09/07/2024 8:30 AM CDT Virtual Visit [facility] Urology Clinic [address] 4th [place] [phone] Carlos Joyner MD [address] [place] [address] 09/13/2024 11:00 AM CDT Office Visit [facility] [address] [place] [phone] [place] [address] [place], [place] 8631368 09/20/2024 11:00 AM CDT Office Visit [facility] Sleep Center [address] [phone] Sugey Mccoy APRN [address] 492344 documented as of this encounter Visit Diagnoses Not on filedocumented in this encounter Additional Health Concerns Infection Onset Date Last Indicated Resolved Time MRSA Comment:Added from external infection. Pt has had Staph infections but never MRSA from Care everywhere chart review. Removing MRSA 14.23 06/17/2019 02/06/2023 9:41 AM C DT documented as of this encounter Care Teams Descriptive Catalog Librarian Relationship Specialty Start Date End Date Ignacia Duran MD PCP - General Pediatrics 01/20/20 03/04/23 [place] [address] [place] [address] PCP - General 03/05/23 Carlos Jyoner MD [address] [place] [address] 782645 Urology 12/09/19 Jadon Murray MD [facility] [address] [phone] Referring Physician Pediatric Surgery 12/09/19 Maru Villagomez, RN Registered Nurse 12/10/19 Carlos Joyner MD [address] [place] [address] 715115 Assigned Surgical Provider 03/17/20 Ang Slade MD [address] [place] [address] 80181 Urology 04/24/20 Ang Slade MD [address] [place] [address] 99833 Assigned Surgical Provider 08/13/20 Carlos Joyner MD [address] [place] [address] 985105 Assigned Surgical Provider 12/24/20 Annalise Orta PA-C 5200 [place] [address] Assigned Cancer Care Provider 05/13/21 11/01/22 Ang Slade MD [address] [place] [address] 854415 MD Urology 12/18/22 Lakshmi Wilhelm PA-C [address] [place] [address] 055605 Physician Electronic Controls Repairer Supervisor Urology 02/03/23 [place] [address] [place] [address] Assigned PCP 02/06/23 Alissa Perez PA-C [address] [place] [address] 711635 Physician Electronic Controls Repairer Supervisor Surgery 09/04/23 Lakshmi Wilhelm PA-C [address] [place] [address] 642225 Physician Electronic Controls Repairer Supervisor Urology 09/16/23 Aidee Valero PA-C [address] [place] [address] 348005 Assigned Musculoskeletal Provider 04/17/24 Tanisha Marlow 4120 [facility] [address] 03/30/24 documented as of this encounter
--- OUTSIDE RECORDS SUMMARY | 2024-08-03 21:47 | XMS_ITS | Encounter Summary ---
Author Organization [facility] Address [address] [place] [address] Care Team Providers Care District Branch Manager Name Role Phone Carlos Joyner MD Unavailable [phone] Jadon Murray MD Unavailable [phone] Maru Villagomez RN Unavailable Unavailable Ignacia Duran MD Primary Care Provider Ang Slade MD Unavailable Carlos Joyner MD Unavailable [phone] Annalise Orta PA-C Unavailable Ang Slade MD Unavailable Lakshmi Wilhelm-C Unavailable Heladio Willoughby MD Primary Care Provider Heladio Willoughby MD Unavailable Alissa Perez PA-C Unavailable [phone] Lakshmi Wilhelm PA-C Unavailable Aidee Valero PA-C Unavailable Encounter Details Date Type Department Care Team (Late st Contact Info) Description 12/18/2021 [facility] Urology Clinic [address] [place] [address] Carlos Joyner MD [address] [place] [address] Social History Tobacco Use Types Packs/Day [...] Upcoming Encounters Date Type Department Care Team ([facility] st Contact Info) Description 09/07/2024 8:30 AM CDT Virtual Visit [facility] Urology Clinic [address] [place] [phone] Carlos Joyner MD [address] [place] [address] 09/13/2024 11:00 AM CDT Office Visit [facility] [address] [place] [address] [place] [address] [place], [place] 6047268 09/20/2024 11:00 AM CDT Office Visit [facility] Sleep Center [address] [phone] Sugey Mccoy APRN [address] [address] documented as of this encounter Visit Diagnoses Not on filedocumented in this encounter Additional Health Concerns Infection Onset Date Last Indicated Resolved Time MRSA Comment:Added from external infection. Pt has had Staph infections but never MRSA from Care everywhere chart review. Removing MRSA 9.14.23 06/17/2019 02/06/2023 9:41 AM C DT documented as of this encounter Care Teams District Branch Manager Relationship Specialty Start Date End Date Ignacia Duran MD PCP - General Pediatrics 01/20/20 03/04/23 [place] [address] [place] [address] PCP - General 03/05/23 Carlos Joyner MD [address] [place] [address] 769925 Urology 12/09/19 Jadon Murray MD [facility] [address] [phone] Referring Physician Pediatric Surgery 12/09/19 Maru Villagomez, RN Registered Nurse 12/10/19 Ang Slade MD [address] [place] [address] Urology 04/24/20 Carlos Joyner MD [address] [place] [address] 21224 Assigned Surgical Provider 12/24/20 Annalise Orta PA-C [address] [place] [address] Assigned Cancer Care Provider 05/13/21 11/01/22 Ang Slade MD [address] 000215 Urology 12/18/22 Lakshmi Wilhelm PA-C [address] [place] [address] 351835 Physician Overlock Sleeve Setter Urology 02/03/23 [place] [address] [place] [address] Assigned PCP 02/06/23 Alissa Perez PA-C [address] [place] [address] Physician Overlock Sleeve Setter Surgery 09/04/23 Lakshmi Wilhelm PA-C [address] [place] [address] 569[address] Physician Overlock Sleeve Setter Urology 09/16/23 Aidee Valero PA-C [address] [place] [address] 023805 Assigned Musculoskeletal Provider 04/17/24 Tanisha Marlow 4120 [facility] [address] 03/30/24 documented as of this encounter
--- OUTSIDE RECORDS SUMMARY | 2024-08-03 21:47 | XMS_ITS | Encounter Summary ---
Author Organization [facility] Address [address] [place] [address]. [place] [address] Care Team Providers Care Aviation Engineer Name Role Phone Carlos Joyner MD Unavailable [phone] Jadon Murray MD Unavailable [phone] Maru Villagomez RN Unavailable Unavailable Ang Slade MD Unavailable [phone] Carlos Joyner MD Unavailable [phone] Ang Slade MD Unavailable [phone] Lakshmi Wilhelm PA-C Unavailable [phone] Heladio Willoughby MD Primary Care Provider [phone] Heladio Willoughby MD Unavailable Alissa Perez PA-C Unavailable [phone] Lakshmi Wilhelm PA-C Unavailable [phone] Aidee Valero PA-C Unavailable [phone] Encounter Details Date Type Department Care Team (Late st Contact Info) Description 04/08/2023 [facility] Medical Advice [facility] Urology Clinic [address] 4th [place] [address] Rosita Velasco, RN Social History [...] in an overnight chcf, or couch-surfing.) Yes 04/11/2023 Are you worried [...] Description 09/07/2024 8:30 AM CDT Virtual Visit [facility] Urology Clinic [address] [place] [address] Carlos Joyner MD [address] [place] [address] 09/13/2024 11:00 AM CDT Office Visit [facility] [address] [place] [address] [place] [address] [place], [place] [phone] 09/20/2024 11:00 AM CDT Office Visit [facility] [address] [place] [address] Sugey Mccoy, LOGISTICS TEAM LEADER ASSEMBLY ASSOCIATE [address] [place] [address] [address] [place] [address] documented as of this encounter Visit Diagnoses Not on filedocumented in this encounter Care Teams Aviation Engineer Relationship Specialty Start [place] [address] [place] [address] PCP - General 03/05/23 Carlos Joyner MD [address] [place] [address] Urology 12/09/19 Jadon Murray MD [facility] 2530 [facility] [address] [place] [address] Referring Physician Pediatric Surgery 12/09/19 Maru Villagomez, OTILIO Registered Nurse 12/10/19 Ang Slade MD [address] [address] Urology 04/24/20 Carlos Joyner MD [address] [place] [address]702 Assigned Surgical Provider 12/24/20 Ang Slade MD [address] [address] Urology 12/18/22 Lakshmi Wilhelm PA-C [address] [place] [address] 097105 Physician Marketing Outreach Coordinator Urology 02/03/23 [place] [address] [place] [address] Assigned PCP 02/06/23 Alissa Perez PA-C [address] [place] [address] 019155 Physician Marketing Outreach Coordinator Surgery 09/04/23 Lakshmi Wilhelm PA-C [address] [place] [address] 849685 Physician Marketing Outreach Coordinator Urology 09/16/23 Aidee Valero PA-C [address] [place] [address] 882045 Assigned Musculoskeletal Provider 04/17/24 Tanisha Marlow 4120 [facility] [address] 03/30/24 documented as of this encounter
--- OUTSIDE RECORDS SUMMARY | 2024-08-03 21:47 | XMS_ITS | Encounter Summary ---
Author Organization [facility] Address [address] [place] [address] Care Team Providers Care Maintenance And Repair Worker Name Role Phone Carlos Joyner MD Unavailable [phone] Jadon Murray MD Unavailable [phone] Maru Villagomez RN Unavailable Unavailable Ang Slade MD Unavailable [phone] Carlos Joyner MD Unavailable [phone] Ang Slade MD Unavailable [phone] Lakshmi Wilhelm-C Unavailable Heladio Willoughby MD Primary Care Provider [phone] Heladio Willoughby MD Unavailable Alissa Perez PA-C Unavailable [phone] Lakshmi Wilhelm-C Unavailable [phone] Aidee Valero PA-C Unavailable Reason for Visit * Reason Comments Medication Refill Encounter Details Date Type Department Care Team (Late st Contact Info) Description 07/05/2024 Refill [facility] Urology Clinic [address] [place] [address] Carlos Joyner MD [address] [place] [address] Medication Refill Social History Tobacco Use [...] EVERY MORNINGStart: 06/17/2023Ord/Sold: 06/17/2023 (O)Ordered On: 4Pharmacy: [id number] [address] Associated: Taking: Long-term: Med Note: Patient Sig: Take 1 tablet (1.25 mg) by mouth every morning Ordering Department: [facility] UROLOG[facility] Authorized By: Carlos Joyner MD Dispense: 90 tablet Refills: 3 ordered Last Visit Date: 09/23/23 Anya MANRIQUE Future Visit Date: 09/07/24 [] Refill decision: Medication refilled per ???Medication Refill in Gang Vibrator Operator?? policy. [] Supervision: no future appointment [...] Nursing/Red Flag Triage & Med Refill Team KMAN documented in this encounter Plan of Treatment Upcoming Encounters Date Type Department Care Team (Late st Contact Info) Description 09/07/2024 8:30 AM CDT Virtual Visit [facility] Urology Clinic [address] 4th [place] [phone] Carlos Joyner MD [address] [place] [address] 868795 09/13/2024 11:00 AM CDT Office Visit [facility] [address] [place] [address] [place] [address] [place], [place] 6352268 09/20/2024 11:00 AM CDT Office Visit [facility] Sleep Center [address] [phone] Sugey Mccoy, POKER DEALER [address] 626394 documented as of this encounter Visit Diagnoses Diagnosis Hypercalciuria Unspecified disorders of calcium metabolism documented in this encounter Care Teams Maintenance And Repair Worker Relationship Specialty Start [place] [address] [place], [place] 5521368 PCP - General 03/05/23 Carlos Joyner MD [address] [place] [address] Urology 12/09/19 Jadon Murray MD [facility] [address] [address] Referring Physician Pediatric Surgery 12/09/19 Maru Villagomez, OTILIO Registered Nurse 12/10/19 Ang Slade MD [address] [place] [address] Urology 04/24/20 Carlos Joyner MD [address] [place] [address] Assigned Surgical Provider 12/24/20 Ang Slade MD [address] [place] [address] Urology 12/18/22 Lakshmi Wilhelm PA-C [address] [place] [address] Physician Clinical Biostatistics Director Urology 02/03/23 [place] [address] [facility] [place], [place] 8903368 Assigned PCP 02/06/23 Alissa Perez PA-C [address] [place] [address] 320925 Physician Clinical Biostatistics Director Surgery 09/04/23 Lakshmi Wilhelm PA-C 909 [place], [place] 578915 Physician Clinical Biostatistics Director Urology 09/16/23 Aidee Valero PA-C [address] [place] [address] 745905 Assigned Musculoskeletal Provider 04/17/24 Tanisha Marlow 4120 [facility] [id number] 03/30/24 documented as of this encounter
--- OUTSIDE RECORDS SUMMARY | 2024-08-03 21:47 | XMS_ITS | Patient Health Record ---
Author Organization [facility] Address [facility] [address] [address] [place] [address] Care Team Providers Care Corrosion Engineer Name Role Phone Ignacia Duran MD Primary Care Provider [phone] ADOLFO PAZ MD Reason For Referral No Information Medications Medication SIG (Take, Route, Fr equency, Duration) Notes Start Date End Date Status Gentamicin Sulfate 40 MG/ML 30ML QHS Intravesically BID for 30 days 12/30/2019 Active Problems Problem Type SNOMED Code ICD Code Onset Dates Problem Status W/U Status Risk Notes Problem 720135245 Neurogenic bladd er (N31.9) Active confirmed Problem Hydrocephalus (437051093) Hydrocephalus (G91.9) Active confirmed Problem 38145733 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 Problem 515340733 Acute pyonephros is (N13.6) Active confirmed Problem 437330829 Obesity (BMI 30-39.9) (E66.9) Active confirmed Problem 76037888 Spina bifida of lumbosacral region with 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) Active confirmed Problem 21098843 Acute pyelonephritis (N10) Active confirmed Problem Sepsis (51800207) Sepsis, due to unspecified organism (A41.9) Active confirmed Problem 99733027 Bilateral nephrolithiasis (N20.0) Active confirmed Plan Of Treatment Pending Test Test Name Order Date UDS- Flow, ru, EMG, CMG w/UA/UC and mario tion 12/02/2019 Insurance Providers Payer Name Payer Address Payer Phone Subscriber Number Group Number Insured Name Patient Relationship to Insured Coverage Start Date Coverage End Date [facility] [address] [address] [place] [phone] [id number] Fe Escudero Child - Insured has Financial Responsibility [facility] [address] [address] [place] [address] [id number] Laina Escudero Self - patient is the insured
--- OUTSIDE RECORDS SUMMARY | 2024-08-03 21:47 | XMS_ITS | Encounter Summary ---
Author Organization [facility] Address [address] [place] [address] Care Team Providers Care Baseball Winder Name Role Phone Carlos Joyner MD Unavailable [phone] Jadon Murray MD Unavailable +[phone] Maru Villagomez RN Unavailable Unavailable Ang Slade MD Unavailable [phone] Carlos Joyner MD Unavailable [phone] Ang Slade MD Unavailable [phone] Lakshmi Wilhelm PA-C Unavailable [phone] Heladio Willoughby MD Primary Care Provider [phone] Heladio Willoughby MD Unavailable Alissa Perez PA-C Unavailable [phone] Lakshmi Wilhelm PA-C Unavailable [phone] Aidee Valero PA-C Unavailable [phone] Reason for Visit * Reason Onset Date Comments Call Back 06/24/2024 Previous message from [employer] Encounter Details Date Type Department Care Team (Late st Contact Info) Description 06/24/[address] [facility] Urology Clinic [address] [place] [address] Carlos Joyner MD [address] [place] [address] Call Back (Previous message from [employer]) Social History Tobacco Use Types Packs/Day Years [...] infection. RN sent antibiotics to [facility] pharmacy for pt. OTILIO Becker Linderman Operator- Urology [phone] ESTATE MANAGEMENT SPECIALIST * Telephone Encounter - Amari Mcconnell RN - 06/28/2024 8:37 AM CST RN returned call to Tanisha, pt's guardian, with urine culture results. If symptomatic, rec Macrobid 100mg BID x [address] Joyner. RN requested return call to confirm plan. OTILIO Becker Linderman Operator- Urology [phone] ESTATE MANAGEMENT SPECIALIST * Telephone Encounter - Kilo Perez - 06/24/2024 3:23 PM REAL ESTATE MANAGEMENT SPECIALIST [facility] Phone Message May a detailed message be left on voicemail: yes Reason for Call: Alison from patients facility is requesting a response from yesterday's [employer] message RUPA: [facility], [facility] sent the below message regarding her urine. Do you think she should have a urinalysis done in case of infection? Thank you greatly for advising. From: Christie Avila < > Sent: Sunday, June 23, 2024 10:06 AM To: Tanisha Marlow < [email or web address]>; Nurse < > Subject: MS Good Morning [...] Avila RN, BSN, PHN, LSN Building Nurse [facility] lAison also reports the following updates for today: AM 220CC large amount of urine in brief. PM 380CC Yellow urine and sediment noted. Action Taken: Message routed to: [facility] Urology Travel Screening: Not Applicable Date of Service: ESTATE MANAGEMENT SPECIALIST * Addendum Note - Amari Mcconnell RN - 06/24/2024 3:23 PM CSTAddended by: AMARI MCCONNELL on: 06/29/2024 09:13 AM Modules accepted: Orders ESTATE MANAGEMENT SPECIALIST documented in this encounter Plan of Treatment Upcoming Encounters Date Type Department Care Team (Late st Contact Info) Description 09/07/2024 8:30 AM CDT Virtual Visit [facility] Urology Clinic [address] [phone] Carlos Joyner MD [address] [place] [address] 480215 09/13/2024 11:00 AM CDT Office Visit [facility] [address] [place] [address] [place] [address] [place] [address] 09/20/2024 11:00 AM CDT Office Visit [facility] Sleep Center [address] [phone] Sugey Mccoy, COOK HELPER INDUSTRIAL ELECTRICAL TECHNICIAN [address] [place] [address] documented as of this encounter Visit Diagnoses Diagnosis Recurrent UTI- Primary Urinary tract infection, site not specified documented in this encounter Care Teams Baseball Winder Relationship Specialty [place] [address] [place] [address] PCP - General 03/05/23 Carlos Joyner MD [address] [place] [address] Urology 12/09/19 Jadon Murray MD [facility] [address] [facility] [address] [place] [address] Referring Physician Pediatric Surgery 12/09/19 Maru Villagomez, RN Registered Nurse 12/10/19 Ang Slade MD [address] [place] [address] Urology 04/24/20 Carlos Joyner MD [address] [place] [address] Assigned Surgical Provider 12/24/20 Ang Slade MD [address] [address] Urology 12/18/22 Lakshmi Wilhelm PA-C [address] [place] [address] Physician Laboratory Aide Urology 02/03/23 [place] [address] [place] [address] Assigned PCP 02/06/23 Alissa Perez PA-C [address] [place] [address] Physician Laboratory Aide Surgery 09/04/23 Lakshmi Wilhelm PA-C [address] [place] [address] Physician Laboratory Aide Urology 09/16/23 Aidee Valero PA-C [address] [place] [address] Assigned Musculoskeletal Provider 04/17/24 Tanisha Marlow 4120 [facility] [address] 03/30/24 documented as of this encounter
--- OUTSIDE RECORDS SUMMARY | 2024-08-03 21:47 | XMS_ITS | Encounter Summary ---
Author Organization [place] Address [address] [place] [address] Care Team Providers Care Sugar Chipper Machine Operator Name Role Phone Carlos Joyner MD Unavailable [phone] Jadon Murray MD Unavailable [phone] Maru Villagomez RN Unavailable Unavailable Ang Slade MD Unavailable [phone] Carlos Joyner MD Unavailable [phone] Ang Slade MD Unavailable [phone] Lakshmi Wilhelm PA-C Unavailable [phone] Heladio Willoughby MD Primary Care Provider [phone] Heladio Willoughby MD Unavailable Alissa Perez PA-C Unavailable [phone] Lakshmi Wilhelm PA-C Unavailable [phone] Aidee Valero PA-C Unavailable [phone] Encounter Details Date Type Department Care Team (Late st Contact Info) Description 03/27/2023 [facility] Medical Advice UR PREOP/PHASE II 2450 [place] [phone] Lisette Salinas RN Social History Tobacco Use [...] in an overnight halfway, or couch-surfing.) Yes 02/26/2023 Are you worried [...] Description 09/07/2024 8:30 AM CDT Virtual Visit [facility] Urology Clinic [address] 4th [place] [address] Carlos Joyner MD [address] [place] [address] 866215 09/13/2024 11:00 AM CDT Office Visit [address] [address] [place] [address] [place] [address] 09/20/2024 11:00 AM CDT Office Visit [facility] [address] [place] [phone] Darius Elvir[place]ia Elder, SEO SPECIALIST CAR SHIFTER [address] [address] [address] [place] [address] documented as of this encounter Visit Diagnoses Not on filedocumented in this encounter Care Teams Sugar Chipper Machine Operator Relationship Specialty Start [place] [address] [place] [address] PCP - General 03/05/23 Carlos Joyner MD [address] [place] [address] 544265 Urology 12/09/19 Jadon Murray MD [facility] 2530 [facility] [address] [place] [address] Referring Physician Pediatric Surgery 12/09/19 Maru Villagomez, OTILIO Registered Nurse 12/10/19 Ang Slade MD [address] [place] [address] 873265 Urology 04/24/20 Carlos Joyner MD 9 [place], [place] 530155 Assigned Surgical Provider 12/24/20 Ang Slade MD [address] [place] [address] 032615 Urology 12/18/22 Lakshmi Wilhelm PA-C [address] [place] [address]141 Physician Funeral Service Manager Urology 02/03/23 [place] [address] [facility] [place] [address] Assigned PCP 02/06/23 Alissa Perez PA-C [address] [place] [address] Physician Funeral Service Manager Surgery 09/04/23 Lakshmi Wilhelm PA-C [address] [place] [address] Physician Funeral Service Manager Urology 09/16/23 Aidee Valero PA-C [address] [place] [address] 662665 Assigned Musculoskeletal Provider 04/17/24 Tanisha Marlow 4120 [facility] [address] 03/30/24 documented as of this encounter
--- OUTSIDE RECORDS SUMMARY | 2024-08-03 21:47 | XMS_ITS | Encounter Summary ---
Author Organization [place] Address [address] [place] [address] Care Team Providers Care Transferrer Name Role Phone Carlos Joyner MD Unavailable [phone] Jadon Murray MD Unavailable [phone] Maru Villagomez RN Unavailable Unavailable Ang Slade MD Unavailable [phone] Carlos Joyner MD Unavailable [phone] Ang Slade MD Unavailable [phone] Lakshmi Wilhelm-C Unavailable [phone] Heladio Willoughby MD Primary Care Provider [phone] Heladio Willoughby MD Unavailable Alissa Perez PA-C Unavailable [phone] Lakshmi Wilhelm-C Unavailable [phone] Aidee Valero PA-C Unavailable [phone] Encounter Details Date Type Department Care Team (Late st Contact Info) Description 08/18/2023 [facility] Medical Advice [facility] [address] [place] [address] Analisa Conner Social History Tobacco Use [...] Description 09/07/2024 8:30 AM CDT Virtual Visit [facility] Urology Clinic [address] [phone] Carlos Joyner MD [address] [place] [address] 09/13/2024 11:00 AM CDT Office Visit [facility] [address] [place] [address] [place] [address] [place] [address] 09/20/2024 11:00 AM CDT Office Visit [facility] [address] [place] [phone] Sugey Mccoy, DUMPER OPERATOR [facility] [address] [place], [place] [address]E [address] [place], [place] [address] documented as of this encounter Visit Diagnoses Not on filedocumented in this encounter Care Teams Transferrer Relationship Specialty [place] [address] [place] [address] PCP - General 03/05/23 Carlos Joyner MD [address] [place] [address] Urology 12/09/19 Jadon Murray MD [facility] [address] [facility] [address] [place] [address] Referring Physician Pediatric Surgery 12/09/19 Maru Villagomez, OTILIO Registered Nurse 12/10/19 Ang Slade MD [address] [place] [address] 807745 Urology 04/24/20 Carlos Joyner MD [address] [place] [address] Assigned Surgical Provider 12/24/20 Ang Slade MD [address] [address] Urology 12/18/22 Lakshmi Wilhelm PA-C [address] [place] [address] 616325 Physician Director Clinical Applications Urology 02/03/23 [place] [address] [place] [address] Assigned PCP 02/06/23 Alissa Perez PA-C [address] [place] [address] 759705 Physician Director Clinical Applications Surgery 09/04/23 Lakshmi Wilhelm PA-C [address] [place] [address] 155555 Physician Director Clinical Applications Urology 09/16/23 Aidee Valero PA-C [address] [place] [address] 873705 Assigned Musculoskeletal Provider 04/17/24 Tanisha Marlow 4120 [facility] [address] 03/30/24 documented as of this encounter
--- OUTSIDE RECORDS SUMMARY | 2024-08-03 21:47 | XMS_ITS | Encounter Summary ---
Author Organization [facility] Address [address] [place] [address] Care Team Providers Care Interventional Pain Physician Name Role Phone Carlos Joyner MD Unavailable [phone] Jadon Murray MD Unavailable [phone] Maru Villagomez RN Unavailable Unavailable Ignacia Duran MD Primary Care Provider Ang Slade MD Unavailable [phone] Carlos Joyner MD Unavailable +[phone] Annalise Orta PA-C Unavailable [phone] Ang Slade MD Unavailable [phone] Lakshmi Wilhelm-C Unavailable [phone] Heladio Willoughby MD Primary Care Provider [phone] Heladio Willoughby MD Unavailable Alissa Perez PA-C Unavailable [phone] Lakshmi Wilhelm PA-C Unavailable [phone] Aidee Valero PA-C Unavailable [phone] Encounter Details Date Type Department Care Team (Late st Contact Info) Description 12/05/2021 [facility] Urology Clinic [address] [address] [facility] Social History Tobacco Use Types Packs/Day [...] Description 09/07/2024 8:30 AM CDT Virtual Visit [facility] Urology Clinic [address] [phone] Carlos Joyner MD [address] [place] [address] 847025 09/13/2024 11:00 AM CDT Office Visit [facility] [address] [place] [address] [place] [address] [place] [address] 09/20/2024 11:00 AM CDT Office Visit [facility] Sleep [address] [phone] Sugey Mccoy, SETTLEMENT AGENT [facility] [address] [place] [address] 697694 documented as of this encounter Visit Diagnoses Not on filedocumented in this encounter Additional Health Concerns Infection Onset Date Last Indicated Resolved Time MRSA Comment:Added from external infection. Pt has had Staph infections but never MRSA from Care everywhere chart review. Removing MRSA 9.14.23 06/17/2019 02/06/2023 9:41 AM C DT documented as of this encounter Care Teams Interventional Pain Physician Relationship Specialty Start Date End Date Ignacia Duran MD PCP - General Pediatrics 01/20/20 03/04/23 [place] [address] [place] [address] PCP - General 03/05/23 Carlos Joyner MD [address] [place] [address] Urology 12/09/19 Jadon Murray MD [facility] [address] [address] Referring Physician Pediatric Surgery 12/09/19 Maru Villagomez, OTILIO Registered Nurse 12/10/19 Ang Slade MD [address] 385435 Urology 04/24/20 Carlos Joyner MD [address] [place] [address] Assigned Surgical Provider 12/24/20 Annalise Orta PA-C 5200 [place] [address] Assigned Cancer Care Provider 05/13/21 11/01/22 Ang Slade MD [address] [address] Urology 12/18/22 Lakshmi Wilhelm PA-C [address] [place] [address] Physician Tubing Mill Operator Urology 02/03/23 [place] [address] [place] [address] Assigned PCP 02/06/23 Alissa Perez PA-C [address] [place] [address] Physician Tubing Mill Operator Surgery 09/04/23 Lakshmi Wilhelm PA-C [address] [place] [address] Physician Tubing Mill Operator Urology 09/16/23 Aidee Valero PA-C [address] [place] [address] Assigned Musculoskeletal Provider 04/17/24 Tanisha Marlow 4120 [facility] [address] 03/30/24 documented as of this encounter
--- OUTSIDE RECORDS SUMMARY | 2024-08-03 21:47 | XMS_ITS | Encounter Summary ---
Author Organization [facility] Address [address] [place] [address] Care Team Providers Care Solution Manager Name Role Phone Carlos Joyner MD Unavailable [phone] Jadon Murray MD Unavailable [phone] Maru Villagomez RN Unavailable Unavailable Ang Slade MD Unavailable [phone] Carlos Joyner MD Unavailable +[phone] Ang Slade MD Unavailable [phone] Lakshmi Wilhelm PA-C Unavailable Heladio Willoughby MD Primary Care Provider [phone] Heladio Wliloughby MD Unavailable Alissa Perez PA-C Unavailable [phone] Lakshmi Wilhelm PA-C Unavailable [phone] Aidee Valero PA-C Unavailable [phone] Encounter Details Date Type Department Care Team (Late st Contact Info) Description 09/18/2023 [facility] [address] [place] [address] Carlos Joyner MD [address] [place] [address] Social History Tobacco Use Types Packs/Day [...] Description 09/07/2024 8:30 AM CDT Virtual Visit [facility] Urology [address] [place] [address] Carlos Joyner MD [address] [place] [address] 039695 09/13/2024 11:00 AM CDT Office Visit [facility] [address] [place] [address] [place] [address] [place] [address] 09/20/2024 11:00 AM CDT Office Visit [facility] [address] [place] [phone] Sugey Mccoy, OXYHYDROGEN WELDER [facility] [address] [address] [place], [place] [address] documented as of this encounter Visit Diagnoses Not on filedocumented in this encounter Care Teams Solution Manager Relationship Specialty [place] [address] [place] [address] PCP - General 03/05/23 Carlos Joyner MD [address] [place] [address] 863725 Urology 12/09/19 Jadon Murray MD [facility] 2530 [facility] 550 [place], [place] [phone] Referring Physician Pediatric Surgery 12/09/19 Maru Villagomez, RN Registered Nurse 12/10/19 Ang Slade MD [address] [place] [address] Urology 04/24/20 Carlos Joyner MD [address] [place] [address] 376745 Assigned Surgical Provider 12/24/20 Ang Slade MD [address] [place] [address] 394 [place] [address] Urology 12/18/22 Lakshmi Wilhelm PA-C [address] [place] [address] 206115 Physician Steamboat Inspector Urology 02/03/23 [place] [address] [facility] [address] Assigned PCP 02/06/23 Alissa Perez PA-C [address] [place] [address] 980255 Physician Steamboat Inspector Surgery 09/04/23 Lakshmi Wilhelm PA-C [address] [place] [address] 128625 Physician Steamboat Inspector Urology 09/16/23 Aidee Valero PA-C [address] [place] [address] 254695 Assigned Musculoskeletal Provider 04/17/24 Tanisha Marlow 4120 [facility] [address] 03/30/24 documented as of this encounter
--- OUTSIDE RECORDS SUMMARY | 2024-08-03 21:47 | XMS_ITS | Encounter Summary ---
Author Organization [facility] Address [address] [place] [id number] Care Team Providers Care Radiation Technician Name Role Phone Carlos Joyner MD Unavailable [phone] Jadon Murray MD Unavailable [phone] Maru Villagomez RN Unavailable Unavailable Ang Slade MD Unavailable [phone] Carlos Joyner MD Unavailable [phone] Ang Slade MD Unavailable [phone] Lakshmi Wilhelm-C Unavailable [phone] Heladio Willoughby MD Primary Care Provider [phone] Heladio Willoughby MD Unavailable Alissa Perez PA-C Unavailable [phone] Lakshmi Wilhelm-C Unavailable [phone] Aidee Valero PA-C Unavailable [phone] Reason for Referral * Consultation (Routine: Next available opening) - Referral NOT Required Specialty Diagnoses / Procedures Referred By Contabran t Referred To Contact Neurological Surgery Diagnoses Thoracic spina bifida, unspecified hydrocephalus presence (H) Chiari malformation type II (H) Paraplegia (H) S/P MEDIA [place] [address] [place] [address] Phone: tel: fax: Referral ID Status Reason Start Date Expiration Date V isits Requested Visits Authorized [id number] Referral NOT Required 07/22/2024 07/22/2025 1 1 Question Answer Reason for Referral: Other/General Neurosurgery My Clinical Question Is: Transitioning to adult neurosurgeon for hx of spina bifida, hydrocephalus, s/p MEDIA EXECUTIVE shunt. Pediatric neurosurgery team recommending Dr. Seven LEGER Patient Scheduling Instructions: [employer] will call you to coordinate your care as prescribed by your provider. If you don't hear from a scheduling representative within 2 business days, please call . Comments To help facilitate your referral to neurosurgery, please request the release of your outside records to assist the scheduling team. X-rays, CTs, MRIs, and other imaging must be pushed electronically to the [employer] system. Please be aware that coverage of these services is subject to the terms and limitations of your health insurance plan. Call member services at your health plan with any benefit or coverage questions. [employer] will call you to coordinate your care as prescribed by your provider. If you don't hear from a scheduling representative within 2 business days, please call . IPLE DRUM SANDER HELPER * Occupational Therapy (Routine: Next available opening) - Referral NOT Required Specialty Diagnoses / Procedures Referred By Charli sylvester Referred To Contact Occupational Therapy Diagnoses [place] [address] [place] [address] Phone: tel: fax: Referral ID Status Reason Start Date Expiration Date V isits Requested Visits Authorized [id number] Referral NOT Required 07/22/2024 07/22/2025 1 1 Question Answer Course of Action: Evaluation and Treatment Specialty Services: Per Associated Diagnosis Patient Scheduling Instructions: [employer] will call you to coordinate your care as prescribed by your provider. If you don't hear from a scheduling representative within 2 business days, please call . Comments Please be aware that coverage of these services is subject to the terms and limitations of your health insurance plan. Call member services at your health plan with any benefit or coverage questions. [employer] will call you to coordinate your care as prescribed by your provider. If you don't hear from a scheduling representative within 2 business days, please call . IPLE DRUM SANDER HELPER Reason for Visit * Reason Comments Physical wheel chair Forms for a new one Contraception Different options to regulate menstrual cycle Encounter Details Date Type Department Care Team (Late st Contact Info) Description 07/21/2024 4:00 PM MULTIPLE DRUM SANDER HELPER Office Visit [facility] [address] [place] [address] [place] [address] [place] [address] Encounter for Medicare annual wellness exam (Primary Dx); Cervical cancer screening; Thoracic spina bifida, unspecified hydrocephalus presence (H); Chiari malformation type II (H); Paraplegia (H); S/P MEDIA EXECUTIVE shunt; Wheelchair dependence; Morbid obesity (H); Horseshoe kidney; Bilateral nephrolithiasis; Recurrent cystitis; Neurogenic bladder; Neurogenic bowel; control counseling Social History Tobacco Use Types Packs/Day Years [...] than three times a week 07/16/2024 Attends Judaism Services Not on file 07/16 Active Member of Clubs or Organizations Not on f ile 07/16/2024 Attends Club or Organization Meetings Not on antelmo e 07/16/2024 Marital Status Not on file 07/16/2024 PHQ-2 Answer Date Recorded PHQ-2 Score Incomplete 07/21/2024 [facility] - Occupational Stress [...] building, in an overnight longterm, or couch-surfing.) No 07/16/2024 Are you worried [...] Comments Blood Pressure 132/73 07/21/2024 3:51 PM MULTIPLE DRUM SANDER HELPER Pulse 61 07/21/2024 3:44 PM MULTIPLE DRUM SANDER HELPER Temperature 36.6 C (97.9 F) 07/21/2024 3:44 PM MULTIPLE DRUM SANDER HELPER Respiratory Rate 18 07/21/2024 3:44 PM MULTIPLE DRUM SANDER HELPER Oxygen Saturation 99% 07/21/2024 3:44 PM MULTIPLE DRUM SANDER HELPER Inhaled Oxygen Concentration - - Weight - - Height - - Body Mass Index - - documented in this encounter Patient Instructions * Patient Instructions* Heladio Willoughby MD - 07/21/2024 4:00 PM MULTIPLE DRUM SANDER HELPER Images from the original note were not included. Patient Education Preventive Care Advice This is general advice given by our system to help you stay healthy. However, your care team may have specific advice just for you. Please talk to your care team about your preventive care needs. Nutrition Eat 5 or more servings of fruits and vegetables each day. Try wheat bread, brown rice and whole grain pasta (instead of white bread, rice, and pasta). Get enough calcium and vitamin D. Check the label on foods and aim for 100% of the COURIER DELIVERY DRIVER (recommendeddaily allowance). Lifestyle Exercise at least 150 minutes each week (30 minutes a day, 5 days a week). Do muscle strengthening activities 2 days a week. These help control your weight and prevent disease. No smoking. Wear sunscreen to prevent skin cancer. Have a dental exam and cleaning every 6 months. Yearly exams See your health care team every year to talk about: Any changes in your health. Any medicines your care team has prescribed. Preventive care, family planning, and ways to prevent chronic diseases. Shots (vaccines) HPV shots (up to age 26), if you've never had them before. Hepatitis B shots (up to age 59), if you've never had them before. COVID-19 shot: Get this shot when it's due. Flu shot: Get a flu shot every year. Tetanus shot: Get a tetanus shot every 10 years. Pneumococcal, hepatitis A, and RSV shots: Ask your care team if you need these based on your risk. Shingles shot (for age 50 and up) General health tests Diabetes screening: Starting at age 35, Get screened for diabetes at least every 3 years. If you are younger than age 35, ask your care team if you should be screened for diabetes. Cholesterol test: At age 39, start having a cholesterol test every 5 years, or more often if advised. Bone density scan (DEXA): At age 50, ask your care team if you should have this scan for osteoporosis (brittle bones). Hepatitis C: Get tested at least once in your life. STIs (sexually transmitted infections) Before age 24: Ask your care team if you should be screened for STIs. After age 24: Get screened for STIs if you're at risk. You are at risk for STIs (including HIV) if: You are sexually active with more than one person. You don't use condoms every time. You or a partner was diagnosed with a sexually transmitted infection. If you are at risk for HIV, ask about PrEP medicine to prevent HIV. Get tested for HIV at least once in your life, whether you are at risk for HIV or not. Cancer screening tests Cervical cancer screening: If you have a cervix, begin getting regular cervical cancer screening tests starting at age 21. Breast cancer scan (mammogram): If you've ever had breasts, begin having regular mammograms starting at age 40. This is a scan to check for breast cancer. Colon cancer screening: It is important to start screening for colon cancer at age 45. Have a colonoscopy test every 10 years (or more often if you're at risk) Or, ask your provider about stool tests like a FIT test every year or Cologuard test every 3 years. To learn more about your testing options, visit: . For help making a decision, visit: https://bit.ly/rz71559. Prostate cancer screening test: If you have a prostate, ask your care team if a prostate cancer screening test (PSA) at age 55 is right for you. Lung cancer screening: If you are a current or former smoker ages 50 to 80, ask your care team if ongoing lung cancer screenings are right for you. For informational purposes only. Not to replace the advice of your health care provider. Copyright ?? 2022 [facility] [employer]. All rights reserved. Clinically reviewed by the [employer] Transitions Program. [employer] 624809 - REV 06/18. Preventing Falls: Care Instructions Injuries and health problems such as trouble walking or poor eyesight can increase your risk of falling. So can some medicines. But there are things you can do to help prevent falls. You can exerciseto get stronger. You can also arrange your home to make it safer. Talk to your doctor about the medicines you take. Ask if any of them increase the risk of falls andwhether they can be changed or stopped. Try to exercise regularly. It can help improve your strength and balance. This can help lower your risk of falling. Practice fall safety and prevention. Wear low-heeled shoes that fit well and give your feet good support. Talk to your doctor if you have foot problems that make this hard. Carry a cellphone or wear a medical alert device that you can use to call for help. Use stepladders instead of chairs to reach high objects. Don't climb if you're at risk for falls. Ask for help, if needed. Wear the correct eyeglasses, if you need them. Make your home safer. Remove rugs, cords, clutter, and furniture from walkways. Keep your house well lit. Use night-lights in hallways and bathrooms. Install and use sturdy handrails on stairways. Wear nonskid footwear, even inside. Don't walk barefoot or in socks without shoes. Be safe outside. Use handrails, curb cuts, and ramps whenever possible. Keep your hands free by using a shoulder bag or backpack. Try to walk in well-lit areas. Watch out for uneven ground, changes in pavement, and debris. Be careful in the winter. Walk on the grass or gravel when sidewalks are slippery. Use de-icer on steps and walkways. Add non-slip devices to shoes. Put grab bars and nonskid mats in your shower or tub and near the toilet. Try to use a shower chairor bath bench when bathing. Get into a tub or shower by putting in your weaker leg first. Get out with your strong side first. Have a phone or medical alert device in the bathroom with you. Where can you learn more? Go to https://www.[employer].net/patiented Enter G117 in the search box to learn more about Preventing Falls: Care Instructions. Current as of: December 24, 2023 Content Version: 14.3 ?? 2023 Attributor. Care instructions adapted under license by your healthcare professional. If you have questions about a medical condition or this instruction, always ask your healthcare professional. Attributor disclaims any warranty or liability for your use of this information. Bladder Training: Care Instructions Your Care Instructions Bladder training is used to treat urge incontinence and stress incontinence. Urge incontinence means that the need to urinate comes on so fast that you can't get to a toilet in time. Stress incontinence means that you leak urine because of pressure on your bladder. For example, it may happen when you laugh, cough, or lift something heavy. Bladder training can increase how long you can wait before you have to urinate. It can also help your bladder hold more urine. And it can give you better control over the urge to urinate. It is important to remember that bladder training takes a few weeks to a few months to make a difference. You may not see results right away, but don't give up. Follow-up care is a mcgarry part of your treatment and safety. Be sure to make and go to all appointments, and call your doctor if you are having problems. It's also a good idea to know your test resultsand keep a list of the medicines you take. How can you care for yourself at home? Work with your doctor to come up with a bladder training program that is right for you. You may useone or more of the following methods. Delayed urination In the beginning, try to keep from urinating for 5 minutes after you first feel the need to go. While you wait, take deep, slow breaths to relax. Kegel exercises can also help you delay the need to go to the bathroom. After some practice, when you can easily wait 5 minutes to urinate, try to wait 10 minutes before you urinate. Slowly increase the waiting period until you are able to control when you have to urinate. Scheduled urination Empty your bladder when you first wake up in the morning. Schedule times throughout the day when you will urinate. Start by going to the bathroom every hour, even if you don't need to go. Slowly increase the time between trips to the bathroom. When you have found a schedule that works well for you, keep doing it. If you wake up during the night and have to urinate, do it. Apply your schedule to waking hours only. Kegel exercises These tighten and strengthen pelvic muscles, which can help you control the flow of urine. (If doing these exercises causes pain, stop doing them and talk with your doctor.) To do Kegel exercises: Squeeze your muscles as if you were trying not to pass gas. Or squeeze your muscles as if you were stopping the flow of urine. Your belly, legs, and buttocks shouldn't move. Hold the squeeze for 3 seconds, then relax for 5 to 10 seconds. Start with 3 seconds, then add 1 second each week until you are able to squeeze for 10 seconds. Repeat the exercise 10 times a session. Do 3 to 8 sessions a day. When should you call for help? Watch closely for changes in your health, and be sure to contact your doctor if: Your incontinence is getting worse. You do not get better as expected. Where can you learn more? Go to https://www.[employer].net/patiented Enter V684 in the search box to learn more about Bladder Training: Care Instructions. Current as of: September 23, 2023 Content Version: 14.3 ?? 2023 Attributor. Care instructions adapted under license by your healthcare professional. If you have questions about a medical condition or this instruction, always ask your healthcare professional. Attributor disclaims any warranty or liability for your use of this information. IPLE DRUM SANDER HELPER documented in this encounter Progress Notes * Heladio Willoughby MD - 07/21/2024 4:00 PM CST Images from the original note were not included. Preventive Care Visit [facility] Heladio Willoughby MD, Family Medicine Jul 21, 2024 Assessment & Plan Encounter for Medicare annual wellness exam Stable overall. See below for specific annual lab requirements. Due for pap smear, plan to set up separate appt to obtain. UTD on vaccination recommendations. Cervical cancer screening Wheelchair bound with flaccid LE paralysis. Due for pap smear. Plan to set up future visit for possible combined IUD and pap smear. See below. Thoracic spina bifida, unspecified hydrocephalus presence (H) Chiari malformation type II (H) Paraplegia (H) S/P MEDIA EXECUTIVE shunt Was seeing PCP and Dr. Rodgers, [facility] Planning to transition to adult care through [facility]. Per Dr. Rodgers, patient requires annual lipid, CMP, vitamin D. Ordered. Also recommending follow specialty teams for comprehensive care including adult SB care ([facility] Almaraz vs. [facility]); adult neurosurgery, order placed. In process of transitioning to [facility]. Upcoming appt with adult sleep medicine. Currently following with adult Urology. - Comprehensive metabolic panel (BMP + Alb, Alk Phos, ALT, AST, Total. Bili, TP) - Lipid panel reflex to direct LDL Fasting - CBC with platelets and differential - Lipid panel reflex to direct LDL Fasting - Adult neurosurgery referral placed Wheelchair dependence Current wheelchair in disrepair with recommendations by [facility] for new chair. Needs annual wheelchair inspection. Last completed in 2023. - Comprehensive metabolic panel (BMP + Alb, Alk Phos, ALT, AST, Total. Bili, TP) - Lipid panel reflex to direct LDL Fasting - CBC with platelets and differential - Lipid panel reflex to direct LDL Fasting - Electric Wheelchair Order for DME with OT or PT Referral Morbid obesity (H) - Vitamin D Deficiency Horseshoe kidney Bilateral nephrolithiasis Recurrent cystitis Neurogenic bladder Neurogenic bowel Hx of recurrent UTIs. Following with Urology who is managing. control counseling Discussed various options. Due to immobility, would likely avoid estrogen containing BC. Would recommend hormone IUD. If she is not amenable, would likely send in e-consult to cloth brushing and sueding supervisor to consider alternatives - high dose POP pills? BMI Estimated body mass index is 28.22 kg/m?? as calculated from the following: Height as of 03/30/24: 1.473 m (4' 10). Weight as of 03/30/24: 61.2 kg (135 lb). In addition to the preventive service, I spent 40 minutes discussing the patient's chronic conditions and ongoing management/treatment. The longitudinal plan of care for the diagnosis(es)/condition(s) as documented were addressed during this visit. Due to the added complexity in care, I will continue to support Laina in the subsequent management and with ongoing continuity of care. Counseling Appropriate preventive services were discussed with this patient. Checklist reviewing preventive services available has been given to the patient. Follow up in one month for LARC, pap Heladio Willoughby MD [facility] 07/22/2024 Yared Marina is a 23 year old, presenting for the following: Physical, wheel chair (Forms for a new one), and Contraception (Different options to regulate menstrual cycle) 07/21/2024 3:35 PM Additional Questions Roomed by Jacey REED Accompanied by arnav 07/21/2024 Forms Any forms needing to be completed Yes 07/21/2024 3:35 PM Patient Reported Additional Medications Patient reports taking the following new medications n/a Contraception Wheelchair prescription Has had current wheelchair for the past 5 years. Just last , [employer] came by and said there were too many things to fix on the wheelchair and that she likely needed a whole new wheelchair. Most worrisome, though, is the joystick - as patient almost got stuck in the bathroom since the wheelchair continued to move when it is not supposed to. School nurse emailed with concerns about cushion - cushion cover is broken but unable to replace. Sides are not holding up as well as should. Head rest is broken. - Told to have annual wheelchair inspection. - [employer] is the wheelchair provider who they contact when pieces or equipment is controlled. Does have a trustee that pays for things if insurance doesn't cover it but would like to try and gothrough insurance first. Mail the wheelchair prescription to: Laina Escudero [address] [place] [address] Period control Laina is currently using depo to control her periods. This help decrease amount and duration of bleeding. Since this is not ideal in her case, looking for alternative options of BC Hx of UTIs Following with Urology with some concerns for development of urosepsis. Especially as she is unableto feel her bottom half. Does have a consult with Dr. Joyner upcoming for: Suggestions of what to look for with UTIs along with talking about a potential suprapubic catheter. Hard for Laina to drink water all the time. Prior spina bifida physician Dr. Alessia Rodgers is the spina bifida provider at [facility]. She suggested the sleep study. Did have DEXA scans done through [facility]. Dr. Caruso was PCP at [facility] and Remy PROCESS IMPROVEMENT ENGINEER for spina bifida. Home Care Patient lives at her own home. Her aunt lives with her. She gets 24/7 hour cares by home care agency: Just transitioned to [employer] which is a [employer]. Started in May. Cares are happening consistently. Laina seems happier with this home care agency compared to last agency. Other services: Also established care with [facility]. Antoinette Calvin from [facility] for assessment and private PT once weekly too Health Care Directive Patient has a Health Care Directive on file Advance care planning document is on file and is current. 07/16/2024 General Health How would you rate your overall physical health? Good Feel stress (tense, anxious, or unable to sleep) Not at all Proxy-reported 07/16/2024 Nutrition Diet: Low salt Proxy-reported 07/16/2024 Exercise Days per week of moderate/strenous exercise 0 days Average minutes spent exercising at this level 0 min Proxy-reported (!) EXERCISE CONCERN 07/16/2024 Social Factors Frequency of gathering with friends or relatives More than three times a week Worry food won't last until get money to buy more No Food not last or not have enough money for food? No Do you have housing? (Housing is defined as stable permanent housing and does not include staying ouside in a car, in a tent, in an abandoned building, in an overnight longterm, or couch-surfing.) No Are you worried about losing your housing? No Lack of transportation? No Unable to get utilities (heat,electricity)? No Want help with housing or utility concern? No Proxy-reported (!) HOUSING CONCERN PRESENT 07/16/2024 Fall Risk Fallen 2 or more times in the past year? No Trouble with walking or balance? Yes Proxy-reported 07/16/2024 Activities of Daily Living- Home Safety Needs help with the following daily activites Transportation Shopping Preparing meals Housework Bathing Laundry Medication administration Money management Toileting Dressing Safety concerns in the home None of the above Proxy-reported Multiple values from one day are sorted in reverse-chronological order 07/16/2024 Dental Dentist two times every year? Yes Proxy-reported 07/16/2024 Hearing Screening Hearing concerns? None of the above Proxy-reported 07/16/2024 Driving Risk Screening Patient/family members have concerns about driving No Proxy-reported 07/16/2024 General Alertness/Fatigue Screening Have you been more tired than usual lately? No Proxy-reported 07/16/2024 Urinary Incontinence Screening Bothered by leaking urine in past 6 months Yes Proxy-reported Today's PHQ-2 Score: 07/21/2024 9:47 AM PHQ-2 (??1998 [employer]) PHQ-2 Score Incomplete Proxy-reported 07/16/2024 Substance Use Alcohol more than 3/day or more than 7/wk Not Applicable Do you have a current opioid prescription? No How severe/bad is pain from 1 to 10? 0/10 (No Pain) Do you use any other substances recreationally? No Proxy-reported Social History Tobacco Use Smoking status: Never Smokeless tobacco: Never Vaping Use Vaping status: Never Used Substance Use Topics Alcohol use: Not Currently Drug use: Not Currently History of abnormal Pap smear: No - age 21-29 PAP every 3 years recommended 07/16/2024 Contraception/Family Planning Questions about contraception or family planning (!) YES Proxy-reported Reviewed and updated as needed this visit by Provider Tobacco Allergies Meds Med Hx Surg Hx Fam Hx Current providers sharing in care for this patient include: Patient Care Team: Heladio Willoughby MD as PCP - General Carlos Joyner MD as MD (Urology) Jadon Murray MD as Referring Physician (Pediatric Surgery) Maru Villagomez RN as Registered Nurse Ang Slade MD as MD (Urology) Carlos Joyner MD as Assigned Surgical Provider Ang Slade MD as MD (Urology) Lakshmi Wilhelm PA-C as Physician Rotor Assembler (Urology) Heladio Willoughby MD as Assigned PCP Alissa Perez PA-C as Physician Rotor Assembler (Surgery) Lakshmi Wilhelm PA-C as Physician Rotor Assembler (Urology) Aidee Del Valle PA-C as Assigned Musculoskeletal Provider The following health maintenance items are reviewed in [facility] and correct as of today: Health Maintenance Topic Date Due ANNUAL REVIEW OF ORDERS Never done MENINGITIS B IMMUNIZATION (1 of 2 - Standard) Never done PAP Never done PHQ-2 (once per calendar year) 2024 CHLAMYDIA SCREENING 07/15/2028 (Originally 2002) HEPATITIS C SCREENING 04/16/2043 (Originally 2020) HIV SCREENING 04/16/2043 (Originally 2017) DTAP/TDAP/TD IMMUNIZATION (8 - Td or Tdap) 01/16/2025 MEDICARE ANNUAL WELLNESS VISIT 07/21/2025 ADVANCE CARE PLANNING 07/21/2029 ZOSTER IMMUNIZATION (1 of 2) 2052 INFLUENZA VACCINE Completed HPV IMMUNIZATION Completed MENINGITIS IMMUNIZATION Completed HEPATITIS B IMMUNIZATION Completed COVID-19 Vaccine Completed Pneumococcal Vaccine: Pediatrics (0 to 5 Years) and At-Risk Patients (6 to 49 Years) Aged Out Objective Exam BP 132/73 Pulse 61 Temp 97.9 ??F (36.6 ??C) (Oral) Resp 18 SpO2 99% Estimated body mass index is 28.22 kg/m?? as calculated from the following: Height as of 03/30/24: 1.473 m (4' 10). Weight as of 03/30/24: 61.2 kg (135 lb). Physical Exam GENERAL: healthy, alert and no distress. HEAD: Normocephalic, atraumatic. EYES: PERRL. Normal conjunctivae, sclera. ENT: Normal EAC and TMs bilaterally. Normal oropharynx. NECK: Supple. No lymphadenopathy appreciated. Trachea midline. Thyroid not enlarged, not TTP. RESP: lungs clear to auscultation - no rales, rhonchi or wheezes CV: regular rate and rhythm, normal S1 S2, no murmur, click, rub or gallop. No peripheral swelling noted. ABDOMEN: soft, no TTP x4 quadrants. No hepatomegaly or masses appreciated. BS normactive. MSK: Flaccid SKIN: Grade 1 pressure injury over posterior lumbar region of back. Mild erythematous patch within skin folds of back. EXT: Warm and well perfused. DP pulses 2+ bilaterally. Clubbed feet. NEURO: Wheelchair bound. CNII-XII grossly intact. Moves BUE symmetrically. 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 PSYCH: Groomed, dressed appropriately for weather. Answering questions appropriately with short responses. Mood stated as tired with consistent affect. Due to age, did not complete mini cog today Signed Electronically by: Heladio Willoughby MD IPLE DRUM SANDER HELPER documented in this encounter Plan of Treatment Upcoming Encounters Date Type Department Care Team (Late st Contact Info) Description 09/07/2024 8:30 AM CDT Virtual Visit [facility] [address] [place] [address] Carlos Joyner MD [address] [place] [address] 09/13/2024 11:00 AM CDT Office Visit [address] [address] [place] [address] [place] [address] 09/20/2024 11:00 AM CDT Office Visit [place] [address] [place] [address] Sugey Mccoy, [facility] [address] [place] [address] Scheduled Orders Name Type Priority Associated Diagnoses Orde r Schedule Lipid panel reflex to direct LDL Fasting Lab Routine Thoracic spina bifida, unspecified hydrocephalus presence (H) Wheelchair dependence Morbid obesity (H) Expected: 07/21/2024 (Approximate), Expires: 07/21/2025 Vitamin D Deficiency Lab Routine Morbid obesity (H) Expected: 07/21/2024 (Approximate), Expires: 07/21/2025 Comprehensive metabolic panel Lab Routine Morbid obesity (H) Expected: 07/21/2024 (Approximate), Expires: 07/21/2025 CBC with Platelets & Differential Lab Panel Routine Morbid obesity (H) Expected: 07/21/2024 (Approximate), Expires: 07/21/2025 Scheduled Referrals Name Type Priority Associated Diagnoses Orde r Schedule Electric Wheelchair Order for DME with OT or PT Referral Referral Routine: Next available opening Wheelchair dependence Expected: 07/22/2024 (Approximate), Expires: 07/22/2025 Adult Neurosurgery Unit Assembler Referral Referral Routine: Next available opening Thoracic spina bifida, unspecified hydrocephalus presence (H) Chiari malformation type II (H) Paraplegia (H) S/P MEDIA EXECUTIVE shunt Expected: 07/22/2024 (Approximate), Expires: 07/22/2025 documented as of this encounter Visit Diagnoses Diagnosis Encounter for Medicare annual wellness exam- Primary Routine general medical examination at a health care facility Cervical cancer screening Screening for malignant neoplasm of the cervix Thoracic spina bifida, unspecified hydrocephalus presence (H) Chiari malformation type II (H) Spina bifida with hydrocephalus, unspecified region Paraplegia (H) Paraplegia S/P MEDIA EXECUTIVE shunt 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 dependence Morbid obesity (H) Morbid obesity 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 Bilateral nephrolithiasis Recurrent cystitis Cystitis, unspecified Neurogenic bladder Neurogenic bladder, NOS Neurogenic bowel control counseling General counseling for initiation of other contraceptive measures documented in this encounter Care Teams Radiation Technician Relationship Specialty [place] [address] [place] [address] PCP - General 03/05/23 Carlos Joyner MD [address] [place] [address] Urology 12/09/19 Jadon Murray MD [facility] 2530 [facility] 550 [place], [place] [phone] Referring Physician Pediatric Surgery 12/09/19 Maru Villagomez, RN Registered Nurse 12/10/19 Ang Slade MD [address] [place] [address] 050565 Urology 04/24/20 Carlos Joyner MD [address] [place] [address] 957515 Assigned Surgical Provider 12/24/20 Ang Slade MD [address] [place] [address] 11881 Urology 12/18/22 Lakshmi Wilhelm PA-C [address] [place] [address] 22862 Physician Rotor Assembler Urology 02/03/23 [place] [address] [place] [address] Assigned PCP 02/06/23 Alissa Perez PA-C [address] [place] [address] Physician Rotor Assembler Surgery 09/04/23 Lakshmi Wilhelm PA-C [address] [place] [address] Physician Rotor Assembler Urology 09/16/23 Aidee Valero PA-C [address] [place] [address] 23033 Assigned Musculoskeletal Provider 04/17/24 Tanisha Marlow 4120 [facility] [address] 03/30/24 documented as of this encounter
--- OUTSIDE RECORDS SUMMARY | 2024-08-03 21:47 | XMS_ITS | Encounter Summary ---
Author Organization [place] Address [address] [place] [address] Care Team Providers Care Radiologist Diagnostic Name Role Phone Carlos Joyner MD Unavailable [phone] Jadon Murray MD Unavailable [phone] Maru Villagomez RN Unavailable Unavailable Ang Slade MD Unavailable [phone] Carlos Joyner MD Unavailable [phone] Ang Slade MD Unavailable [phone] Lakshmi Wilhelm-C Unavailable [phone] Heladio Willoughby MD Primary Care Provider [phone] Heladio Willoughby MD Unavailable Alissa Perez PA-C Unavailable [phone] Lakshmi Wilhelm-C Unavailable [phone] Aidee Valero PA-C Unavailable [phone] Encounter Details Date Type Department Care Team (Late st Contact Info) Description 09/08/2023 [facility] Medical Advice [address] [address] Bhavna Ferris Social History Tobacco [...] Description 09/07/2024 8:30 AM CDT Virtual Visit [facility] [address] [place] [address] Carlos Joyner MD [address] [place] [address] 09/13/2024 11:00 AM CDT Office Visit [facility] [address] [place] [address] [place] [address] [place], [place] 08187[address] 09/20/2024 11:00 AM CDT Office Visit [facility] [address] [place] [address] Sugey Mccoy, TUBE BENDER HAND MANUFACTURING FINANCE MANAGER [address] [place] [address] [address] [place] [address] documented as of this encounter Visit Diagnoses Not on filedocumented in this encounter Care Teams Radiologist Diagnostic Relationship Specialty Start [place] [address] [place] [address] PCP - General 03/05/23 Carlos Joyner MD [address] [place] [address] 9[address]98 Urology 12/09/19 Jadon Murray MD [facility] 2530 [facility] 550 [place] [address] Referring Physician Pediatric Surgery 12/09/19 Maru Villagomez, OTILIO Registered Nurse 12/10/19 Ang Slade MD [address] [address] Urology 04/24/20 Carlos Joyner MD [address] [place] [address] Assigned Surgical Provider 12/24/20 Ang Slade MD [address] [address] Urology 12/18/22 Lakshmi Wilhelm PA-C [address] [place] [address] 718145 Physician Food Assembler Urology 02/03/23 [place] [address] [place] [address] Assigned PCP 02/06/23 Alissa Perez PA-C [address] [place] [address] 222415 Physician Food Assembler Surgery 09/04/23 Lakshmi Wilhelm PA-C [address] [place] [address] 308875 Physician Food Assembler Urology 09/16/23 Aidee Valero PA-C [address] [place] [address] 743135 Assigned Musculoskeletal Provider 04/17/24 Tanisha Marlow 4120 [facility] [address] 03/30/24 documented as of this encounter
--- OUTSIDE RECORDS SUMMARY | 2024-08-03 21:47 | XMS_ITS | Encounter Summary ---
Author Organization [place] Address [address] [place] [address] Care Team Providers Care Frame Gate Mortiser Operator Name Role Phone Carlos Joyner MD Unavailable [phone] Jadon Murray MD Unavailable [phone] Maru Villagomez RN Unavailable Unavailable Ang Slade MD Unavailable [phone] Carlos Joyner MD Unavailable [phone] Ang Slade MD Unavailable [phone] Lakshmi Wilhelm-C Unavailable [phone] Heladio Willoughby MD Primary Care Provider [phone] Heladio Willoughby MD Unavailable Alissa Perez PA-C Unavailable [phone] Lakshmi Wilhelm-C Unavailable [phone] Aidee Valero PA-C Unavailable [phone] Encounter Details Date Type Department Care Team (Latest Contact Info) Description 07/21/2024 Travel Social History Tobacco Use Types Packs/Day [...] than three times a week 07/16/2024 Attends Restorationist Services Not on file 02/21 /2025 Active Member of Clubs or Organizations Not on f ile 07/16/2024 Attends Club or Organization Meetings Not on antelmo e 07/16/2024 Marital Status Not on file 07/16/2024 PHQ-2 Answer Date Recorded PHQ-2 Score Incomplete 07/21/2024 [facility] [place] [facility] - Occupational Stress [...] building, in an overnight half-way, or couch-surfing.) No 07/16/2024 Are you worried [...] Virtual Visit [facility] [place] 909 [facility] 4th [place] [phone] Carlos Joyner MD [address] [place] [address] 09/13/2024 11:00 AM CDT Office Visit [facility] [address] [place] [phone] [place] [address] [place], [place] 491[address] 09/20/2024 11:00 AM CDT Office Visit [facility] [address] [place] [phone] Sugey Mccoy, DAYCARE MANAGER [address] [place], [place] 94[address] documented as of this encounter Visit Diagnoses Not on filedocumented in this encounter Care Teams Frame Gate Mortiser Operator Relationship Specialty Start Date [place] [id number] [place] [address] [phone] PCP - General 03/05/23 Carlos Joyner MD [address] [place] [address] Urology 12/09/19 Jadon Murray MD [facility] 2530 [facility] 550 [place] [address] Referring Physician Pediatric Surgery 12/09/19 Maru Villagomez, OTILIO Registered Nurse 12/10/19 Ang Slade MD [address] [place] [address] 394 [place], [place] 412645 Urology 04/24/20 Cralos Joyner MD [address] [place] [address] 788485 Assigned Surgical Provider 12/24/20 Ang Slade MD [address] [place] [address] Urology 12/18/22 Lakshmi Wilhelm PA-C [address] [place] [address] 596975 Physician Baseball Glove Stuffer Urology 02/03/23 [place] [address] [place] [address] Assigned PCP 02/06/23 Alissa Perez PA-C [address] [place] [address] 293935 Physician Baseball Glove Stuffer Surgery 09/04/23 Lakshmi Wilhelm PA-C [address] [place] [address] Physician Baseball Glove Stuffer Urology 09/16/23 Aidee Valero PA-C [address] [place] [address] 361795 Assigned Musculoskeletal Provider 04/17/24 Tanisha Marlow 4120 [facility] [address] 03/30/24 documented as of this encounter
--- OUTSIDE RECORDS SUMMARY | 2024-08-03 21:47 | XMS_ITS | Encounter Summary ---
Author Organization [place] Address [address] [place] [address] Care Team Providers Care Roller Leveler Name Role Phone Carlos Joyner MD Unavailable [phone] Jadon Murray MD Unavailable [phone] Maru Villagomez RN Unavailable Unavailable Ignacia Duran MD Primary Care Provider [phone] Ang Slade MD Unavailable [phone] Carlos Joyner MD Unavailable [phone] Annalise Orta-C Unavailable Ang Slade MD Unavailable Lakshmi Wilhelm-C Unavailable [phone] Heladio Willoughby MD Primary Care Provider [phone] Heladio Willoughby MD Unavailable Alissa Perez PA-C Unavailable [phone] Lakshmi Wilhelm-C Unavailable [phone] Aidee Valero PA-C Unavailable Encounter Details Date Type Department Care Team (Late st Contact Info) Description 10/12/2021 Ifeanyi Peck [facility] [address] 5th [place] [address] Tanisha Coe PA-C [address] [place] [address] Social History Tobacco Use Types Packs/Day [...] Virtual Visit [facility] [address] [place] [phone] Carlos Joyner MD [address] [place] [address] 060455 09/13/2024 11:00 AM CDT Office Visit [address] [phone] [place] [address] [place], [place] 3616068 09/20/2024 11:00 AM CDT Office Visit [facility] [address] [phone] Sugey Mccoy, NEURO PSYCH SALES SPECIALIST [address] 160664 documented as of this encounter Visit Diagnoses Not on filedocumented in this encounter Additional Health Concerns Infection Onset Date Last Indicated Resolved Time MRSA Comment:Added from external infection. Pt has had Staph infections but never MRSA from Care everywhere chart review. Removing MRSA 02.06.23 06/17/2019 02/06/2023 9:41 AM C DT documented as of this encounter Care Teams Roller Leveler Relationship Specialty Start Date End Date Ignacia Duran MD PCP - General Pediatrics 01/20/20 03/04/23 [place] [address] [facility] [address] PCP - General 03/05/23 Carlos Joyner MD [address] [place] [address] Urology 12/09/19 Jadon Murray MD [facility] [address] [address] Referring Physician Pediatric Surgery 12/09/19 Maru Villagomez, OTILIO Registered Nurse 12/10/19 Ang Slade MD [address] [place] [address] Urology 04/24/20 Carlos Joyner MD [address] [place] [address] Assigned Surgical Provider 12/24/20 Annalise Orta PA-C 5[address] [place] [address] Assigned Cancer Care Provider 05/13/21 11/01/22 Ang Slade MD [address] [place] [address] Urology 12/18/22 Lakshmi Wilhelm PA-C [address] [place] [address] Physician Stave Planer Tender Urology 02/03/23 [place] [address] [place] [address] Assigned PCP 02/06/23 Alissa Perez PA-C [address] [place] [address] 401015 Physician Stave Planer Tender Surgery 09/04/23 Lakshmi Wilhelm PA-C [address] [place] [address] 959535 Physician Stave Planer Tender Urology 09/16/23 Aidee Valero PA-C [address] [place] [address] 918385 Assigned Musculoskeletal Provider 04/17/24 Tanisha Marlow 4120 [facility] [address] 03/30/24 documented as of this encounter
--- OUTSIDE RECORDS SUMMARY | 2024-08-03 21:47 | XMS_ITS | Encounter Summary ---
Author Organization [place] Address [address] [place] [address] Care Team Providers Care Admissions Dean Name Role Phone Carlos Joyner MD Unavailable [phone] Jadon Murray MD Unavailable [phone] Maru Villagomez RN Unavailable Unavailable Ang Slade MD Unavailable [phone] Carlos Joyner MD Unavailable [phone] Ang Slade MD Unavailable [phone] Lakshmi Wilhelm-C Unavailable [phone] Heladio Willoughby MD Primary Care Provider [phone] Heladio Willoughby MD Unavailable Alissa Perez PA-C Unavailable [phone] Lakshmi Wilhelm-C Unavailable Aidee Valero PA-C Unavailable [phone] Encounter Details Date Type Department Care Team (Late st Contact Info) Description 06/24/2024 [facility] [address] 4th [place] [address] Carlos Joyner MD [address] [place] [address] Recurrent UTI (Primary Dx) Social History [...] Hattie Wing RN, BSN Urology Triage Nurse SMISSION INSPECTOR documented in this encounter Plan of Treatment Upcoming Encounters Date Type Department Care Team (Late st Contact Info) Description 09/07/2024 8:30 AM CDT Virtual Visit [facility] [place] 909 [facility] 4th [place] [phone] Carlos Joyner MD 909 [place] [address] 09/13/2024 11:00 AM CDT Office Visit [facility] [address] [place] [address] [place] [address] [place] [address] 09/20/2024 11:00 AM CDT Office Visit [facility] [address] [facility] [place] [phone] Sugey Mccoy APRN [facility] [address] [place] [address] documented as of this encounter Results * (ABNORMAL) Urine Culture (06/25/2024 9:14 AM TRANSMISSION INSPECTOR) Pathologist [facility] Culture >100,000 CFU/mL Staphylococcus epidermidis(A) LINDA 06/28/2024 6:49 AM TRANSMISSION INSPECTOR [facility] Culture 50,000-100,000 CFU/mL Staphylococcus epidermidis(A) 06/28/2024 6:49 AM TRANSMISSION INSPECTOR [facility] Urine URINE SPECIMEN OBTAINED VIA [facility] URINARY CATHETER / Unknown Non-blood Collection / Unknown 06/25/2024 9:14 AM TRANSMISSION INSPECTOR 06/25/2024 9:15 AM TRANSMISSION INSPECTOR Narrative Organism Antibiotic Method Susceptibility Staphylococcus epidermidis [...] ORDERA BLES Final Result [facility] Inf. Diseases Diag. Lab [address] [facility], Room [address] [place] [phone] * (ABNORMAL) UA with Microscopic (06/25/2024 9:14 AM TRANSMISSION INSPECTOR) Color Urine Yellow Colorless, Straw, Light Yellow, Yellow 06/25/2024 9:19 AM TRANSMISSION INSPECTOR [facility] Appearance Urine Cloudy(A) Clear 06/25/19 9:19 AM TRANSMISSION INSPECTOR [facility] Glucose Urine Negative Negative mg/dL 06/25/2024 9:19 AM TRANSMISSION INSPECTOR [facility] Bilirubin Urine Negative Negative 9:19 AM TRANSMISSION INSPECTOR RM LAB[facility]ATORY Ketones Urine Negative Negative mg/dL 06/25/2024 9:19 AM TRANSMISSION INSPECTOR RM LABORATORY Specific [place] Urine 1.020 1.003 - 1.035 06/25/2024 9:19 AM TRANSMISSION INSPECTOR LABORATORY Blood Urine Small(A) Negative 06/25/2024 9:19 AM [facility] pH Urine 6.0 5.0 - 7.0 06/25/2024 9:19 AM [facility] Protein Albumin Urine Negative Negative mg/dL 06/25/2024 9:19 AM TRANSMISSION INSPECTOR LABORATORY Urobilinogen Urine 0.2 0.2, 1.0 E.U./dL 06/25/2024 9:19 AM [facility] Nitrite Urine Positive(A) Negative 06/25/2024 9:19 AM TRANSMISSION INSPECTOR LABORATORY Leukocyte Esterase Urine Small(A) Negative 06/25/2024 9:19 AM [facility] Urine URINE SPECIMEN FROM URINARY CONDUIT / Unknown Non-blood Collection / Unknown 06/25/2024 9:14 AM TRANSMISSION INSPECTOR 06/25/2024 9:15 AM TRANSMISSION INSPECTOR Carlos Joyner MD LAB - URINE ORDERABLES Fin al Result LABORATORY [facility] [address] [facility] (no room number, 1st floor of clinic) [place] [address], [facility] documented in this encounter Visit Diagnoses Diagnosis Recurrent UTI- Primary Urinary tract infection, site not specified documented in this encounter Care Teams Admissions Dean Relationship Specialty Start [place] [address] [place] [address] PCP - General 03/05/23 Carlos Joyner MD 9 [place], [place] 755255 Urology 12/09/19 Jadon Murray MD [facility] [address] [address] Referring Physician Pediatric Surgery 12/09/19 Maru Villagomez, RN Registered Nurse 12/10/19 Ang Slade MD [address] 933645 Urology 04/24/20 Calros Joyner MD [address] [place] [address] 654995 Assigned Surgical Provider 12/24/20 Ang Slade MD [address] 846135 Urology 12/18/22 Lakshmi Wilhelm PA-C [address] [place] [address] 785275 Physician Laundry Housekeeping Aide Urology 02/03/23 [place] [address] [place] [address] Assigned PCP 02/06/23 Alissa Perez PA-C [address] [place] [address] 743285 Physician Laundry Housekeeping Aide Surgery 09/04/23 Lakshmi Wilhelm PA-C [address] [place] [address] Physician Laundry Housekeeping Aide Urology 09/16/23 Aidee Valero PA-C [address] [place] [address] 260905 Assigned Musculoskeletal Provider 04/17/24 Tanisha Marlow 4120 [facility] [address] 03/30/24 documented as of this encounter
--- OUTSIDE RECORDS SUMMARY | 2024-08-03 21:47 | XMS_ITS | Encounter Summary ---
Author Organization [place] Address [address] [place] [address] Care Team Providers Care Oil Speculator Name Role Phone Carlos Joyner MD Unavailable [phone] Jadon Murray MD Unavailable [phone] Maru Villagomez RN Unavailable Unavailable Ignacia Duran MD Primary Care Provider Ang Slade MD Unavailable [phone] Carlos Joyner MD Unavailable [phone] Annalise Orta PA-C Unavailable [phone] Ang Slade MD Unavailable [phone] Lakshmi Wilhelm-C Unavailable [phone] Heladio Willoughby MD Primary Care Provider [phone] Heladio Willoughby MD Unavailable Alsisa Perez PA-C Unavailable [phone] Lakshmi Wilhelm PA-C Unavailable [phone] Aidee Valero PA-C Unavailable [phone] Encounter Details Date Type Department Care Team (Late st Contact Info) Description 11/07/[address] [facility] [address] [place] [address] Analisa Palacio, RN Social History [...] Virtual Visit [facility] [address] [place] [phone] Carlos Joyner MD [address] [place] [address] 688995 09/13/2024 11:00 AM CDT Office Visit [facility] [address] [place] [address] [place] [address] [place] [address] 09/20/2024 11:00 AM CDT Office Visit [facility] [address] [phone] Sugey Mccoy, TEXTILE CUTTING MACHINE OPERATOR [address] [id number] documented as of this encounter Visit Diagnoses Not on filedocumented in this encounter Additional Health Concerns Infection Onset Date Last Indicated Resolved Time MRSA Comment:Added from external infection. Pt has had Staph infections but never MRSA from Care everywhere chart review. Removing MRSA 9.14.23 06/17/2019 02/06/2023 9:41 AM C DT documented as of this encounter Care Teams Oil Speculator Relationship Specialty Start Date End Date Ignacia Duran MD PCP - General Pediatrics 01/20/20 03/04/23 [place] [address] [facility] [place] [address] PCP - General 03/05/23 Carlos Joyner MD [address] [place] [address] Urology 12/09/19 Jadon Murray MD [facility] 2530 [facility] 550 [place] [address] Referring Physician Pediatric Surgery 12/09/19 Maru Villagomez, RN Registered Nurse 12/10/19 Ang Slade MD [address] 884315 Urology 04/24/20 Carlos Joyner MD [address] [place] [address] Assigned Surgical Provider 12/24/20 Annalise Orta PA-C 5200 [place] [address] Assigned Cancer Care Provider 05/13/21 11/01/22 Ang Slade MD [address] [address] Urology 12/18/22 Lakshmi Wilhelm PA-C [address] [place] [address] Physician Stave Planer Tender Urology 02/03/23 [place] [address] [place] [address] Assigned PCP 02/06/23 Alissa Perez PA-C [address] [place] [address] Physician Stave Planer Tender Surgery 09/04/23 Lakshmi Wilhelm PA-C [address] [place] [address] Physician Stave Planer Tender Urology 09/16/23 Aidee Valero PA-C [address] [place] [address] Assigned Musculoskeletal Provider 04/17/24 Tanisha Marlow 4120 [facility] [address] 03/30/24 documented as of this encounter
--- OUTSIDE RECORDS SUMMARY | 2024-08-03 21:47 | XMS_ITS | Encounter Summary ---
Author Organization [place] Address [address] [place] [address] Care Team Providers Care Coordinator Of Health Services Name Role Phone Carlos Joyner MD Unavailable [phone] Jadon Murray MD Unavailable [phone] Maru Villagomez RN Unavailable Unavailable Ignacia Duran MD Primary Care Provider [phone] Ang Slade MD Unavailable [phone] Carlos Joyner MD Unavailable [phone] Annalise Orta PA-C Unavailable [phone] Ang Slade MD Unavailable [phone] Lakshmi Wilhelm-C Unavailable [phone] Heladio Willoughby MD Primary Care Provider [phone] Heladio Willoughby MD Unavailable Alissa Perez PA-C Unavailable [phone] Lakshmi Wilhelm PA-C Unavailable [phone] Aidee Valero PA-C Unavailable [phone] Encounter Details Date Type Department Care Team (Late st Contact Info) Description 11/14/2021 [facility] [employer] [facility] [address] [place] [address] Analisa Palacio, RN Social History [...] [facility] [address] [place] [phone] Carlos Joyner MD [address] [place] [address] 185685 09/13/2024 11:00 AM CDT Office Visit [facility] [address] [place] [address] [place] [address] [place] [address] 09/20/2024 11:00 AM CDT Office Visit [facility] [address] [phone] Sugey Mccoy, RADIO INTERFERENCE INVESTIGATOR [address] 934214 documented as of this encounter Visit Diagnoses Not on filedocumented in this encounter Additional Health Concerns Infection Onset Date Last Indicated Resolved Time MRSA Comment:Added from external infection. Pt has had Staph infections but never MRSA from Care everywhere chart review. Removing MRSA 9.14.23 06/17/2019 02/06/2023 9:41 AM C DT documented as of this encounter Care Teams Coordinator Of Health Services Relationship Specialty Start Date End Date Ignacia Duran MD PCP - General Pediatrics 01/20/20 03/04/23 [place] [address] [facility] [place] [address] PCP - General 03/05/23 Carlos Joyner MD [address] [place] [address] Urology 12/09/19 Jadon Murray MD [facility] 2530 [facility] 550 [place] [address] Referring Physician Pediatric Surgery 12/09/19 Maru Villagomez, RN Registered Nurse 12/10/19 Ang Slade MD [address] 956135 Urology 04/24/20 Carlos Joyner MD [address] [place] [address] Assigned Surgical Provider 12/24/20 Annalise Orta PA-C 5200 [place] [address] Assigned Cancer Care Provider 05/13/21 11/01/22 Ang Slade MD [address] [address] Urology 12/18/22 Lakshmi Wilhelm PA-C [address] [place] [address] Physician Pecan Cleaner Urology 02/03/23 [place] [address] [place] [address] Assigned PCP 02/06/23 Alissa Perez PA-C [address] [place] [address] Physician Pecan Cleaner Surgery 09/04/23 Lakshmi Wilhelm PA-C [address] [place] [address] Physician Pecan Cleaner Urology 09/16/23 Aidee Valero PA-C [address] [place] [address] Assigned Musculoskeletal Provider 04/17/24 Tanisha Marlow 4120 [facility] [address] 03/30/24 documented as of this encounter
[2024-08-03 22:07] VITALS: BP 127/90; PULSE 85; RESP 16; TEMP 36.4; O2SAT 99
--- NOTE | 2024-08-03 22:57 | ED_ITS ---
HPI - General Adult General Chief complaint: Extremity Pain/Injury, Upper Stated complaint: Left shoulder pain Time Seen by Provider: 08/03/24 22:57 History of Present Illness HPI narrative: Patient reports pain on the top of their left shoulder. Started this evening, reports no falls or injuries, took a one Tylenol around 20:00. 23-year-old young woman presenting to the emergency depart with concern of left shoulder area pain. History of paraplegia however does play basketball and another support. Does not recall any particular injury. Has had pain here before but not like this she says. Just began spontaneously. No chest pain. No shortness of breath. No radicular symptoms. No rashes noted. She is left-handed. History of spinal fusion Due to ?1 kidney? is not to take NSAIDs Related Data Home Medications ?Medication ?Instructions ?Recorded ?Confirmed oxybutynin chloride 5 mg tablet 5 mg PO BID 07/21/22 06/10/24 indapamide 1.25 mg tablet 1.25 mg PO QAM 10/31/23 06/10/24 potassium chloride 10 mEq 10 meq PO BID 10/31/23 06/10/24 tablet,extended release(part/cryst) Previous Rx's ?Medication ?Instructions ?Recorded ciprofloxacin HCl 500 mg tablet 500 mg PO BID 10 days #20 tabs 05/02/24 (Cipro) ciprofloxacin HCl 500 mg tablet 500 mg PO BID #14 tabs 06/07/24 (Cipro) ondansetron 4 mg disintegrating 4 mg PO Q8H PRN nausea and 07/19/24 tablet vomiting #10 tabs Allergies Allergy/AdvReac Type Severity Reaction Status Date / Time ibuprofen Allergy Intermediate 1 Kidney Verified 08/03/24 22:05 vancomycin Allergy Intermediate Swapnil Verified 08/03/24 22:05 Syndrome latex Allergy Mild Rash Verified 08/03/24 22:05 Review of Systems Status of ROS: Reports: 6 or more systems reviewed and unremarkable except as noted in History and below [facility] Medical History Depression ?F32.A - Depression, unspecified (ICD-10) Paraplegia ?G82.20 - Paraplegia, unspecified (ICD-10) Horseshoe kidney ?Q63.1 - Lobulated, fused and horseshoe kidney (ICD-10) Mild intellectual disability ?F70 - Mild intellectual disabilities (ICD-10) Neurogenic bladder ?N31.9 - Neuromuscular dysfunction of bladder, unspecified (ICD-10) COVID-19 ?U07.1 - COVID-19 (ICD-10) Spina bifida ?Q05.9 - Spina bifida, unspecified (ICD-10) Surgical History History of spinal fusion ?Z98.1 - Arthrodesis status (ICD-10) H/O wisdom tooth extraction ?K08.409 - Partial loss of teeth, unspecified cause, unspecified class (ICD-1 0) Hx of nephrolithotomy with removal of calculi ?Z98.890 - Other specified postprocedural states (ICD-10) ?Z87.442 - Personal history of urinary calculi (ICD-10) S/P DIGITAL DESIGN ENGINEER shunt ?Z98.2 - Presence of cerebrospinal fluid drainage device (ICD-10) Family History Father Diabetes Mother Bipolar 1 disorder Social History What is your current living situation?: I presently have a place to live Problems where you live: no known problems Problems where you live details: no known problems In the past 12 months, utilities in danger of being shut off: no In past 12 months, lack of transportation kept you from medical appts, meetings, work, or getting things needed for daily living: no In the past 12 mos, have been you worried that your food would run out before you had money to buy more?: never true In the past 12 mos, the food you bought just didn't last and you didn't have money to buy more?: never true Smoking Status: Never smoker Do you use any of these nicotine containing products: None Second hand tobacco smoke exposure: No How often do you have a drink containing alcohol: never AUDIT-C Alcohol total score: 0 Non-prescribed substance use: denies use Caffeine: Yes (Coffee) How often does anyone, including family, friends and others, physically hurt you : never How often does anyone, including family, friends and others, insult or talk down to you: never How often does anyone, including family, friends and others, threaten you with harm: never How often does anyone, including family, friends and others, scream or curse at you: never service: No Exam Narrative: Exam Narrative: Calm. Blunted affect. Marked tension and discomfort of the periscapular musculature and particularly trapezius musculature on the left shoulder. She is also sore to palpation underneath the acromial process in the deltoid. No particular swelling. No rash. No significant pain to movement of the shoulder joint itself. Const: Vital Signs, click to edit/add: Vital Signs - 24 hr 08/03/24 22:07 Temperature 97.5 F L Pulse Rate [Right Pulse Oximeter] 85 Respiratory Rate 16 Blood Pressure [Ri ght Upper Arm] 127/90 H Pulse Oximetry 99 Oxygen Delivery Me thod Room Air Documenting provider has reviewed patient's vital signs: yes Course Vital Signs Vital signs: Initial Vital Signs Temperature 97.5 F L 08/03/24 22:07 Temperature Source Temporal Artery Scan 08/03/24 22:07 Pulse Rate 85 08/03/24 22:07 Respiratory Rate 16 08/03/24 22:07 Blood Pressure 127/90 H 08/03/24 22:07 Blood Pressure Mean 102 08/03/24 22:07 Blood Pressure Position Sitting 08/03/24 22:07 Pulse Oximetry 99 08/03/24 22:07 Oxygen Delivery Method Room Air 08/03/24 22:07 Vital Signs Temperature 97.5 F L 08/03/24 22:07 Pulse Rate 85 08/03/24 22:07 Respiratory Rate 16 08/03/24 22:07 Blood Pressure 127/90 H 08/03/24 22:07 Pulse Oximetry 99 08/03/24 22:07 Oxygen Delivery Method Room Air 08/03/24 22:07 Temperature 97.5 F L 08/03/24 22:07 Pulse Rate 85 08/03/24 22:07 Respiratory Rate 16 08/03/24 22:07 Blood Pressure 127/90 H 08/03/24 22:07 Pulse Oximetry 99 08/03/24 22:07 Oxygen Delivery Method Room Air 08/03/24 22:07 Medications Administered Medications: Discontinued Medications Generic Name Dose Route Start Last Admin Trade Name Freq PRN Reason Stop Dose Admin Acetaminophen 1,000 mg 08/03/24 23:13 08/03/24 23:21 Acetaminophen 500 Mg Tablet PO 08/03/24 23:14 1,000 mg ONCE ONE Administration Medical Decision Making MDM Narrative Medical decision making narrative: Certainly has marked tension of the muscles. I do not appreciate an issue with rotator cuff or joint capsule itself. There might be a subacromial bursitis here but just seems so tense. Three-view x-ray of the left shoulder been ordered prior to my seeing Laina. I have independently reviewed them. I do not appreciate any bony abnormality. Had been placing a folded warm blanket on her shoulder during her wait which may have been helpful. I would apply ice packs 2-3 times daily over the next few days. Continue with acetaminophen. I understand you are not to have NSAIDs like ibuprofen. Am prescribing some cyclobenzaprine a ?muscle relaxer? though honestly is perhaps more sedating in its effect. I think it would be a great idea to have physical therapy come out and/or receive a massage to the muscles in your upper back and shoulder. Your muscle seem extremely tense. But also to assist you with exercises to mobilize this area. You seem to have some aspects of subacromial bursitis as well. See handout of exercises that might be utilized by you and/or physical therapy if they approve. Would like to treat over this next week and see how you do. Medical Records Medical records reviewed: Yes I reviewed the patient's medical records Discharge Plan Discharge Clinical Impression: Left shoulder pain, Muscle tension pain Patient Disposition: Home w/ Parent or Adult Condition: Stable Additional Instructions: I would apply ice packs 2-3 times daily over the next few days. Continue with acetaminophen. I understand you are not to have NSAIDs like ibuprofen. Am prescribing some cyclobenzaprine a ?muscle relaxer? though honestly is perhaps more sedating in its effect. I think it would be a great idea to have physical therapy come out and/or receive a massage to the muscles in your upper back and shoulder. Your muscle seem extremely tense. But also to assist you with exercises to mobilize this area. You seem to have some aspects of subacromial bursitis as well. See handout of exercises that might be utilized by you and/or physical therapy if they approve. Would like to treat over this next week and see how you do. Prescriptions: No Action oxybutynin chloride 5 mg tablet 5 mg PO BID indapamide 1.25 mg tablet 1.25 mg PO QAM potassium chloride 10 mEq tablet,ER particles/crystals 10 meq PO BID ciprofloxacin HCl [Cipro] 500 mg tablet 500 mg PO BID Qty: 14 0RF ciprofloxacin HCl [Cipro] 500 mg tablet 500 mg PO BID 10 Days Qty: 20 0RF ondansetron 4 mg tablet,disintegrating 4 mg PO Q8H PRN (Reason: nausea and vomiting) Qty: 10 0RF Follow Up/Referrals: Ignacia Duran MD [Primary Care Provider] - Stand Alone Forms: Circle 1 [employer]th Info Instructions
--- OUTSIDE RECORDS SUMMARY | 2024-08-03 23:19 | XMS_ITS | Encounter Summary ---
Author Organization [facility] Address [address] [place] [address]. [place] [address] Care Team Providers Care Land Acquisition Specialist Name Role Phone Carlos Joyner MD Unavailable [phone] Jadon Murray MD Unavailable [phone] Maru Villagomez RN Unavailable Unavailable Ang Slade MD Unavailable [phone] Carlos Joyner MD Unavailable [phone] Ang Slade MD Unavailable [phone] Lakshmi Wilhelm-C Unavailable [phone] Heladio Willoughby MD Primary Care Provider [phone] Heladio Willoughby MD Unavailable Alissa Perez PA-C Unavailable [phone] Lakshmi Wilhelm-C Unavailable [phone] Aidee Valero PA-C Unavailable [phone] Reason for Visit * Reason Onset Date Comments Orders 06/22/2024 Encounter Details Date Type Department Care Team (Late st Contact Info) Description 06/22/2024 Telephone [facility] [address] [place] [address] [place] [address] [place] [address] Orders Social History Tobacco Use [...] 06/24/2024 7:55 AM CST Returned call to [facility] with [facility], left detailed VM with order approval per provider. Tanisha Quiros RN on 06/24/2024 at 7:56 AM ANICAL INSULATOR * Telephone Encounter - Heladio Willoughby MD - 06/24/2024 5:49 AM CST Verbal order given. Thanks, Heladio Wilolughby MD [facility] 06/24/2024 ANICAL INSULATOR * Telephone Encounter - Ileana Lieberman RN - 06/22/2024 3:46 PM CST Received call from Vanessa at [facility] Requesting verbal order from Dr Heladio Willoughby for 30 Peristeen Catheters to be dispensed and shipped yodit. Under current DME order, unable to ship until end of June (3 month supply at a time), patient recently moved to new home and supplies were lost during move. Please call Vanessa back with provider approval of verbal order. Ok to leave detailed message if needed. ANICAL INSULATOR documented in this encounter Plan of Treatment Upcoming Encounters Date Type Department Care Team (Late st Contact Info) Description 09/07/2024 8:30 AM CDT Virtual Visit [facility] [address] [place] [phone] Carlos Joyner MD [address] [place] [address] 09/13/2024 11:00 AM CDT Office Visit [facility] [address] [place] [phone] [place] [address] [place] [address] 09/20/2024 11:00 AM CDT Office Visit [facility] [address] [phone] Sugey Mccoy APRN [address] [address]8614 documented as of this encounter Procedures Procedure Name Priority Date/Time Associated Diagnosis Comments ROUTINE UA WITH MICROSCOPIC Routine 06/25/2024 9:14 AM MECHANICAL INSULATOR Recurrent UTI URINE MICROSCOPIC EXAM Routine 06/25/2024 9:14 AM MECHANICAL INSULATOR Recurrent UTI URINE CULTURE Routine 06/25/2024 9:14 AM MECHANICAL INSULATOR Recurrent UTI documented in this encounter Results * (ABNORMAL) Urine Microscopic Exam (06/25/2024 9:14 AM MECHANICAL INSULATOR) Bacteria Urine Many(A) None Seen /HPF LINDA 06/25/2024 9:20 AM MECHANICAL INSULATOR [facility] RBC Urine 2-5(A) 0-2 /HPF /HPF LINDA 06/25/2024 9:20 AM MECHANICAL INSULATOR [facility] WBC Urine 10-25(A) 0-5 /HPF /HPF LINDA 06/25/2024 9:20 AM MECHANICAL INSULATOR [facility] Amorphous Crystals Urine Few(A) None Seen /HPF LINDA 06/25/2024 9:20 AM MECHANICAL INSULATOR [facility] Urine URINE SPECIMEN FROM URINARY CONDUIT / Unknown Non-blood Collection / Unknown 06/25/2024 9:14 AM MECHANICAL INSULATOR 06/25/2024 9:15 AM MECHANICAL INSULATOR Carlos Joyner MD LAB - URINE ORDERABLES Fin al Result LABORATORY [facility] [address] [facility] (no room number, 1st floor of clinic) [place] [address], [facility] * (ABNORMAL) Urine Culture (06/25/2024 9:14 AM MECHANICAL INSULATOR) Culture >100,000 CFU/mL Staphylococcus epidermidis(A) LINDA 06/28/2024 6:49 AM MECHANICAL INSULATOR [facility] Culture 50,000-100,000 CFU/mL Staphylococcus epidermidis(A) 06/28/2024 6:49 AM MECHANICAL INSULATOR [facility] Urine URINE SPECIMEN OBTAINED VIA [facility] URINARY CATHETER / Unknown Non-blood Collection / Unknown 06/25/2024 9:14 AM MECHANICAL INSULATOR 06/25/2024 9:15 AM MECHANICAL INSULATOR Narrative Organism Antibiotic Method Susceptibility Staphylococcus epidermidis [...] LINDA 2 ug/mL: Susceptible Staphylococcus epidermidis Nitrofurantoin LNIDA <=16 ug/mL: Susceptible Staphylococcus epidermidis Trimethoprim/ Sulfamethoxaz ole LINDA Susceptible Comment:Antibiotics listed a s No Interpretation have no regulatory guidelines for susceptibility/resistance available. us Carlos Joyner MD LAB - MICRO GENERAL ORDERA BLES Final Result [facility] Inf. Diseases Diag. Lab [address] [facility], Room [address] [place] [id number] * (ABNORMAL) UA with Microscopic (06/25/2024 9:14 AM MECHANICAL INSULATOR) Color Urine Yellow Colorless, Straw, Light Yellow, Yellow 06/25/2024 9:19 AM MECHANICAL INSULATOR LABORATORY Appearance Urine Cloudy(A) Clear 06/25/19 25 9:19 AM [facility] Glucose Urine Negative Negative mg/dL 06/25/2024 9:19 AM [facility] Bilirubin Urine Negative Negative 9:19 AM [facility] Ketones Urine Negative Negative mg/dL 06/25/2024 9:19 AM [facility] Specific [place] Urine 1.020 1.003 - 1.035 06/25/2024 9:19 AM [facility] Blood Urine Small(A) Negative 06/25/2024 9:19 AM [facility] pH Urine 6.0 5.0 - 7.0 06/25/2024 9:19 AM [facility] Protein Albumin Urine Negative Negative mg/dL 06/25/2024 9:19 AM [facility] Urobilinogen Urine 0.2 0.2, 1.0 E.U./dL 06/25/2024 9:19 AM [facility] Nitrite Urine Positive(A) Negative 06/25/2024 9:19 AM [facility] Leukocyte Esterase Urine Small(A) Negative 06/25/2024 9:19 AM [facility] Urine URINE SPECIMEN FROM URINARY CONDUIT / Unknown Non-blood Collection / Unknown 06/25/2024 9:14 AM MECHANICAL INSULATOR 06/25/2024 9:15 AM [facility] us Carlos Joyner MD LAB - URINE ORDERABLES Fin al Result LABORATORY [facility] [address] [facility] (no room number, 1st floor of clinic) [place] [address] documented in this encounter Visit Diagnoses Diagnosis Recurrent UTI Urinary tract infection, site not specified documented in this encounter Care Teams Land Acquisition Specialist Relationship Specialty Start [place] [address] [place] [address] PCP - General 03/05/23 Carlos Joyner MD [address] [place] [address] Urology 12/09/19 Jadon Murray MD [facility] 2530 [facility] 550 [place] [address] Referring Physician Pediatric Surgery 12/09/19 Maru Villagomez, RN Registered Nurse 12/10/19 Ang Slade MD 420 [facility] 394 [place], [place] 223445 Urology 04/24/20 Carlos Joyner MD [address] [place] [address]55 Assigned Surgical Provider 12/24/20 Ang Slade MD 420 [facility] 394 [place], [place] [phone] Urology 12/18/22 Lakshmi Wilhelm PA-C [address] [place] [address] [id number] Physician Char Filter Operator Urology 02/03/23 [place] [address] [place] [address] Assigned PCP 02/06/23 Alissa Perez PA-C [address] [place] [address] 308505 Physician Char Filter Operator Surgery 09/04/23 Lakshmi Wilhelm PA-C [address] [place] [address] [id number] Physician Char Filter Operator Urology 09/16/23 Aidee Valero PA-C 9 [place] [address] Assigned Musculoskeletal Provider 04/17/24 Tanisha Marlow 4120 [facility] [address] 03/30/24 documented as of this encounter
--- OUTSIDE RECORDS SUMMARY | 2024-08-03 23:19 | XMS_ITS | Encounter Summary ---
Author Organization [place] Address [address] [place] [address] Care Team Providers Care Quill Picking Machine Operator Name Role Phone Carlos Joyner MD Unavailable +[phone] Jadon Murray MD Unavailable +[phone] Maru Villagomez RN Unavailable Unavailable Ignacia Duran MD Primary Care Provider [phone] Carlos Joyner MD Unavailable +[phone] Ang Slade MD Unavailable +[phone] Ang Slade MD Unavailable +[phone] Carlos Joyner MD Unavailable +[phone] Annalise Orta PA-C Unavailable +[phone] Ang Slade MD Unavailable +[phone] Lakshmi Wilhelm-C Unavailable +[phone] Heladio Willoughby MD Primary Care Provider [phone] Heladio Willoughby MD Unavailable Alissa Perez PA-C Unavailable [phone] Lakshmi Wilhelm-C Unavailable +[phone] Aidee Valero PA-C Unavailable +[phone] Reason for Visit * Reason Onset Date Comments Call Back 06/07/2020 Stent FYI Encounter Details Date Type Department Care Team (Late st Contact Info) Description 06/07/2020 [facility] [place] [address] [facility] 4th [place] [phone] Ang Slade MD 420 [facility] [address] [place], [place] 615485 Call Back (Stent FYI) Social History Tobacco [...] them back message sent to [email or web address] NGUAL SALES CONSULTANT * Telephone Encounter - Zo Geiger - 06/07/2020 3:16 PM CST [facility] Phone Message May a detailed message be left on voicemail: yes Reason for Call: Other: Cristine calling to let us know that Laina's stent was put in by a providerat [facility] in the Emergency room on 02/04. Cristine is hoping to get a call back to discuss. Action Taken: Message routed to: [facility] Urology Travel Screening: Not Applicable NGUAL SALES CONSULTANT documented in this encounter Plan of Treatment Upcoming Encounters Date Type Department Care Team (Late st Contact Info) Description 09/07/2024 8:30 AM CDT Virtual Visit [facility] [address] [phone] Carlos Joyner MD [address] [place] [address] 09/13/2024 11:00 AM CDT Office Visit [facility] [address] [place] [address] [place] [address] [place], [place] 7910468 09/20/2024 11:00 AM CDT Office Visit [place] [address] [place] [address] Sugey Mccoy, REGISTRY RN [facility] [address] [place] [address] [address] [place], [place] 859284 documented as of this encounter Visit Diagnoses Not on filedocumented in this encounter Additional Health Concerns Infection Onset Date Last Indicated Resolved Time MRSA Comment:Added from external infection. Pt has had Staph infections but never MRSA from Care everywhere chart review. Removing MRSA 9.14.06/17/2019 02/06/2023 9:41 AM C DT documented as of this encounter Care Teams Quill Picking Machine Operator Relationship Specialty Start Date End Date Ignacia Duran MD PCP - General Pediatrics 01/20/20 03/04/23 [place] [address] [place] [address] PCP - General 03/05/23 Carlos Joyner MD 9 [place] [address] Urology 12/09/19 Jadon Murray MD [facility] 2530 [facility] 550 [place] [address] Referring Physician Pediatric Surgery 12/09/19 Maru Villagomez, RN Registered Nurse 12/10/19 Carlos Joyner MD 909 [place] [address] Assigned Surgical Provider 03/17/20 Ang Slade MD 420 [facility] [address] [place] [address] Urology 04/24/20 Ang Slade MD 420 [facility] [address] [place], [place] 464695 Assigned Surgical Provider 08/13/20 Carlos Joyner MD [address] [place] [address] 603995 Assigned Surgical Provider 12/24/20 Annalise Orta PA-C 5200 [place] [address] Assigned Cancer Care Provider 05/13/21 11/01/22 Ang Slade MD [address] 546495 Urology 12/18/22 Lakshmi Wilhelm PA-C [address] [place] [address] 296885 Physician Safety Attendant Urology 02/03/23 [place] [address] [place] [address] Assigned PCP 02/06/23 Alissa Perez PA-C [address] [place] [address] Physician Safety Attendant Surgery 09/04/23 Lakshmi Wilhelm PA-C 9 [place] [address] Physician Safety Attendant Urology 09/16/23 Aidee Valero PA-C [address] [place] [address] Assigned Musculoskeletal Provider 04/17/24 Tanisha Marlow [facility] [id number] 03/30/24 documented as of this encounter
--- OUTSIDE RECORDS SUMMARY | 2024-08-03 23:19 | XMS_ITS | Encounter Summary ---
Author Organization [place] Address [address] [place] [address] Care Team Providers Care Mineral Resources Inspector Name Role Phone Carlos Joyner MD Unavailable [phone] Jadon Murray MD Unavailable + [phone] Maru Villagomez RN Unavailable Unavailable Ignacia Duran MD Primary Care Provider [phone] Ang Slade MD Unavailable +[phone] Carlos Joyner MD Unavailable +[phone] Ang Slade MD Unavailable +[phone] Lakshmi Wilhelm-C Unavailable +[phone] Heladio Willoughby MD Primary Care Provider [phone] Heladio Willoughby MD Unavailable Alissa Perez PA-C Unavailable [phone] Lakshmi Wilhelm-C Unavailable +[phone] Aidee Valero PA-C Unavailable [phone] Encounter Details Date Type Department Care Team (Late st Contact Info) Description 01/06/2023 [facility] [address] [address] Lisette Mariee Social History Tobacco [...] Virtual Visit [facility] [address] 4th [place] [phone] Carlos Joyner MD [address] [place] [address] 743075 09/13/2024 11:00 AM CDT Office Visit [facility] [address] [place] [phone] [place] [address] [place], [place] 5301568 09/20/2024 11:00 AM CDT Office Visit [facility] [address] [phone] Sugey Mccoy, CURB BUILDER [address] 703724 documented as of this encounter Visit Diagnoses Not on filedocumented in this encounter Additional Health Concerns Infection Onset Date Last Indicated Resolved Time MRSA Comment:Added from external infection. Pt has had Staph infections but never MRSA from Care everywhere chart review. Removing MRSA 9.14.23 06/17/2019 02/06/2023 9:41 AM C DT documented as of this encounter Care Teams Mineral Resources Inspector Relationship Specialty Start Date End Date Ignacia Duran MD PCP - General Pediatrics 01/20/20 03/04/23 [place] [address] [place] [address] PCP - General 03/05/23 Carlos Joyner MD [address] [place] [address] Urology 12/09/19 Jadon Murray MD [facility] [address] [address] Referring Physician Pediatric Surgery 12/09/19 Maru Villagomez, OTILIO Registered Nurse 12/10/19 Ang Slade MD [address] [place] [address] Urology 04/24/20 Carlos Joyner MD [address] [place] [address] Assigned Surgical Provider 12/24/20 Ang Slade MD [address] [place] [address] Urology 12/18/22 Lakshmi Wilhelm PA-C [address] [place] [address] 235755 Physician Sessions Clerk Urology 02/03/23 [place] [address] [place] [address] Assigned PCP 02/06/23 Alissa Perez PA-C [address] [place] [address] 636805 Physician Sessions Clerk Surgery 09/04/23 Lakshmi Wilhelm PA-C [address] [place] [address] 041595 Physician Sessions Clerk Urology 09/16/23 Aidee Valero PA-C [address] [place] [address] 628285 Assigned Musculoskeletal Provider 04/17/24 Tanisha Marlow 4120 [facility] [address] 03/30/24 documented as of this encounter
--- OUTSIDE RECORDS SUMMARY | 2024-08-03 23:19 | XMS_ITS | Encounter Summary ---
Author Organization [place] Address [address] [place] [address] Care Team Providers Care Siebel Solution Architect Name Role Phone Carlos Joyner MD Unavailable [phone] Jadon Murray MD Unavailable +[phone] Maru Villagomez RN Unavailable Unavailable Ignacia Duran MD Primary Care Provider [phone] Carlos Joyner MD Unavailable +[phone] Ang Slade MD Unavailable +[phone] Ang Slade MD Unavailable +[phone] Carlos Joyner MD Unavailable +[phone] Annalise Orta PA-C Unavailable +[phone] Ang Slade MD Unavailable +[phone] Lakshmi Wilhelm-C Unavailable +[phone] Heladio Willoughby MD Primary Care Provider [phone] Heladio Willoughby MD Unavailable Alissa Perez PA-C Unavailable [phone] Lakshmi Wilhelm-C Unavailable +[phone] Aidee Valero PA-C Unavailable +[phone] Reason for Visit * Reason Onset Date Comments Call Back 08/01/2020 Miscommunication between urinary results Encounter Details Date Type Department Care Team (Late st Contact Info) Description 08/01/2020 Telephone [facility] [address] [place] [phone] Ang Slade MD 420 [facility] 394 [place], [place] 707315 Call Back (Miscommunication between urinary results) Social [...] COVID-19? 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 Phone Message May a detailed message be left on voicemail: yes Reason for Call: Other: Cristine with [facility] calling because pt's primary, , would like to speak with or a nurse regarding pt's urinary results. Reports that there is some miscommunication that she wants to clarify. Please call back. Action Taken: Message routed to: [facility] uro Travel Screening: Not Applicable IDE SALES ADVERTISING EXECUTIVE documented in this encounter Plan of Treatment Upcoming Encounters Date Type Department Care Team (Late st Contact Info) Description 09/07/2024 8:30 AM CDT Virtual Visit [facility] [address] [phone] Carlos Joyner MD [address] [place] [address] 09/13/2024 11:00 AM CDT Office Visit [facility] [address] [place] [phone] [place] [address] [place], [place] 9649968 09/20/2024 11:00 AM CDT Office Visit [place] [address] [place] [phone] Sugey Mccoy, GAS TURBINE POWERPLANT MECHANIC HELPER [facility] [address] [place], [place] [address]E [address] [place], [place] 676954 documented as of this encounter Visit Diagnoses Not on filedocumented in this encounter Additional Health Concerns Infection Onset Date Last Indicated Resolved Time MRSA Comment:Added from external infection. Pt has had Staph infections but never MRSA from Care everywhere chart review. Removing MRSA 02.06.23 06/17/2019 02/06/2023 9:41 AM C DT documented as of this encounter Care Teams Siebel Solution Architect Relationship Specialty Start Date End Date Ignacia Duran MD PCP - General Pediatrics 01/20/20 03/04/23 [place] [address] [place] [address] PCP - General 03/05/23 Carlos Joyner MD [address] [place] [address] Urology 12/09/19 Jadon Murray MD [facility] 2530 [facility] 550 [place] [address] Referring Physician Pediatric Surgery 12/09/19 Maru Villagomez, OTILIO Registered Nurse 12/10/19 Carlos Joyner MD 909 [place] [address] Assigned Surgical Provider 03/17/20 Ang Slade MD 420 [facility] 394 [place] [address] Urology 04/24/20 Ang Slade MD 420 [facility] 394 [place], [place] 052845 Assigned Surgical Provider 08/13/20 Carlos Joyner MD [address] [place] [address] 387405 Assigned Surgical Provider 12/24/20 Annalise Orta PA-C 5200 [place] [address] Assigned Cancer Care Provider 05/13/21 11/01/22 Ang Slade MD [address] 923605 Urology 12/18/22 Lakshmi Wilhelm PA-C [address] [place] [address] 233555 Physician Director Of Provider Relations Urology 02/03/23 [place] [address] [place] [address] Assigned PCP 02/06/23 Alissa Perez PA-C [address] [place] [address] [place] [address] Physician Director Of Provider Relations Surgery 09/04/23 Lakshmi Wilhelm PA-C 909 [place] [address] Physician Director Of Provider Relations Urology 09/16/23 Aidee Valero PA-C [address] [place] [address] Assigned Musculoskeletal Provider 04/17/24 Tanisha Marlow 4120 [facility] [address] 03/30/24 documented as of this encounter
--- OUTSIDE RECORDS SUMMARY | 2024-08-03 23:19 | XMS_ITS | Encounter Summary ---
Author Organization [facility] Address [address] [place] [address] Care Team Providers Care Speech Language Pathologist Travel Name Role Phone Carlos Joyner MD Unavailable [phone] Jadon Murray MD Unavailable + [phone] Maru Villagomez RN Unavailable Unavailable Ignacia Duran MD Primary Care Provider [phone] Ang Slade MD Unavailable +[phone] Calros Joyner MD Unavailable [phone] Ang Slade MD Unavailable [phone] Lakshmi Wilhelm-C Unavailable +[phone] Heladio Willoughby MD Primary Care Provider [phone] Heladio Willoughby MD Unavailable Alissa Perez PA-C Unavailable [phone] Lakshmi Wilhelm-C Unavailable [phone] Aidee Valero PA-C Unavailable +[phone] Encounter Details Date Type Department Care Team (Late st Contact Info) Description 01/07/2023 [facility] [address] [place] [address] Analisa Palacio, OTILIO Social History [...] Visit [facility] [address] [place] [phone] Carlos Joyner MD [address] [place] [address] 227285 09/13/2024 11:00 AM CDT Office Visit [facility] [address] [place] [address] [phone] [place] [address] [place], [place] 0886368 09/20/2024 11:00 AM CDT Office Visit [facility] [address] [phone] Sugey Mccoy, HORSE DOCTOR [address] 299284 documented as of this encounter Visit Diagnoses Not on filedocumented in this encounter Additional Health Concerns Infection Onset Date Last Indicated Resolved Time MRSA Comment:Added from external infection. Pt has had Staph infections but never MRSA from Care everywhere chart review. Removing MRSA .14.23 06/17/2019 02/06/2023 9:41 AM C DT documented as of this encounter Care Teams Speech Language Pathologist Travel Relationship Specialty Start Date End Date Ignacia Duran MD PCP - General Pediatrics 01/20/20 03/04/23 [place] [address] [place] [address] PCP - General 03/05/23 Carlos Joyner MD [address] [place] [address] Urology 12/09/19 Jadon Murray MD [facility] [address] [address] Referring Physician Pediatric Surgery 12/09/19 Maru Villagomez, OTILIO Registered Nurse 12/10/19 Ang Slade MD [address] [place] [address] 852355 Urology 04/24/20 Carlos Joyner MD [address] [place] [address] 146655 Assigned Surgical Provider 12/24/20 Ang Slade MD [address] [place] [address] Urology 12/18/22 Lakshmi Wilhelm PA-C [address] [place] [address] 003745 Physician Environmental Services Coordinator Urology 02/03/23 [place] [address] [place] [address] Assigned PCP 02/06/23 Alissa Perez PA-C [address] [place] [address] 832065 Physician Environmental Services Coordinator Surgery 09/04/23 Lakshmi Wilhelm PA-C [address] [place] [address] 591165 Physician Environmental Services Coordinator Urology 09/16/23 Aidee Valero PA-C [address] [place] [address] 678425 Assigned Musculoskeletal Provider 04/17/24 Tanisha Marlow 4120 [facility] [address] 03/30/24 documented as of this encounter
--- OUTSIDE RECORDS SUMMARY | 2024-08-03 23:19 | XMS_ITS | Encounter Summary ---
Author Organization [place] Address [address] [place] [address] Care Team Providers Care Library Circulation Assistant Name Role Phone Carlos Joyner MD Unavailable [phone] Jadon Murray MD Unavailable [phone] Maru Villagomez RN Unavailable Unavailable Ignacia Duran MD Primary Care Provider Ang Slade MD Unavailable +[phone] Carlos Joyner MD Unavailable +[phone] Annalise Orta PA-C Unavailable +[phone] Ang Slade MD Unavailable Lakshmi Wilhelm-C Unavailable [phone] Heladio Willoughby MD Primary Care Provider Heladio Willoughby MD Unavailable Alissa Perez PA-C Unavailable [phone] Lakshmi Wilhelm-C Unavailable [phone] Aidee Valero PA-C Unavailable +[phone] Reason for Visit * Reason Onset Date Comments Patient/info Update 02/26/2021 pt currently intubated, will nto be able to have uro surgery Encounter Details Date Type Department Care Team ([facility] Contact Info) Description 02/26/2021 [facility] [address] [place] [address] Carlos Joyner MD 909 [place] [address] Patient/info Update (pt currently intubated, will nto [...] Lakshmi Chowdhury - 02/26/2021 2:07 PM CDT [facility] Phone Message May a detailed message be left on voicemail: yes Reason for Call: Other: Edith called in wanting to let Dr. Joyner and his team know that [facility] date of [facility]09[facility]21. Please call back if thereare any questions at [phone] Action Taken: Message routed to: [facility] uro Travel Screening: Not Applicable documented in this encounter Plan of Treatment Upcoming Encounters Date Type Department Care Team (Late st Contact Info) Description 09/07/2024 8:30 AM CDT Virtual Visit [facility] [address] 4th [place] [address] Carlos Joyner MD [address] [place] [address] 09/13/2024 11:00 AM CDT Office Visit [address] [place] [phone] [place] [address] [place], [place] 1880668 09/20/2024 11:00 AM CDT Office Visit [facility] [address] [place] [address] Sugey Mccoy, SCREEN MAKER [facility] [address] [place], [place] [address]E [address] [place] [address] documented as of this encounter Visit Diagnoses Not on filedocumented in this encounter Additional Health Concerns Infection Onset Date Last Indicated Resolved Time MRSA Comment:Added from external infection. Pt has had Staph infections but never MRSA from Care everywhere chart review. Removing MRSA 9.14.06/17/2019 02/06/2023 9:41 AM C DT documented as of this encounter Care Teams Library Circulation Assistant Relationship Specialty Start Date End Date Ignacia Duran MD PCP - General Pediatrics 01/20/20 03/04/23 [place] [address] [place], [place] 9536168 PCP - General 03/05/23 Carlos Joyner MD [address] [place] [address] Urology 12/09/19 Jadon Murray MD [facility] [address] [address] Referring Physician Pediatric Surgery 12/09/19 Maru Villagomez, OTILIO Registered Nurse 12/10/19 Ang Slade MD [address] [place] [address] Urology 04/24/20 Carlos Joyner MD [address] [place] [address] Assigned Surgical Provider 12/24/20 Annalise Orta PA-C 5200 [place] [address] Assigned Cancer Care Provider 05/13/21 11/01/22 Ang Slade MD [address] [place] [address] Urology 12/18/22 Lakshmi Wilhelm PA-C [address] [place] [address] 238485 Physician Manager Market Urology 02/03/23 [place] [address] [place] [address] Assigned PCP 02/06/23 Alissa Perez PA-C [address] [place] [address] Physician Manager Market Surgery 09/04/23 Lakshmi Wilhelm PA-C [address] [place] [address] 338865 Physician Manager Market Urology 09/16/23 Aidee Valero PA-C [address] [place] [address] 500195 Assigned Musculoskeletal Provider 04/17/24 Tanisha Marlow 4120 [facility] [address] 03/30/24 documented as of this encounter
--- OUTSIDE RECORDS SUMMARY | 2024-08-03 23:19 | XMS_ITS | Encounter Summary ---
Author Organization [place] Address [address] [place] [address] Care Team Providers Care Shift Supervisor Rn Name Role Phone Carlos Joyner MD Unavailable [phone] Jadon Murray MD Unavailable [phone] Maru Villagomez RN Unavailable Unavailable Ang Slade MD Unavailable [phone] Carlos Joyner MD Unavailable +[phone] Ang Slade MD Unavailable [phone] Lakshmi Wilhelm PA-C Unavailable [phone] Heladio Willoughby MD Primary Care Provider [phone] Heladio Willoughby MD Unavailable Alissa Perez PA-C Unavailable [phone] Lakshmi Wilhelm-C Unavailable [phone] Aidee Valero PA-C Unavailable +[phone] Encounter Details Date Type Department Care Team (Late st Contact Info) Description 06/15/2024 [facility] Medical Advice [facility] [address] [place] [address] Sarika Calhoun MA Social History [...] Virtual Visit [facility] [address] [place] [address] Carlos Joyner MD [address] [place] [address] 09/13/2024 11:00 AM CDT Office Visit [facility] [address] [place] [address] [place] [address] [place] [address] 09/20/2024 11:00 AM CDT Office Visit [facility] [address] [place] [phone] Sugey Mccoy, SUPERVISOR NATURAL GAS PLANT BALLOON MAKER [address] [place] [address] [address] [place] [address] documented as of this encounter Visit Diagnoses Not on filedocumented in this encounter Care Teams Shift Supervisor Rn Relationship Specialty Start [place] [address] [place] [address] PCP - General 03/05/23 Carlos Joyner MD [address] [place] [address] Urology 12/09/19 Jadon Murray MD [facility] 2530 [facility] [address] 550 [place] [address] Referring Physician Pediatric Surgery 12/09/19 Maru Villagomez, OTILIO Registered Nurse 12/10/19 Ang Slade MD [address] [address] Urology 04/24/20 Carlos Joyner MD [address] [place] [address] Assigned Surgical Provider 12/24/20 Ang Slade MD [address] [address] Urology 12/18/22 Lakshmi Wilhelm PA-C [address] [place] [address] 101635 Physician Film Cleaner Urology 02/03/23 [place] [address] [place] [address] Assigned PCP 02/06/23 Alissa Perez PA-C [address] [place] [address] 089025 Physician Film Cleaner Surgery 09/04/23 Lakshmi Wilhelm PA-C [address] [place] [address] 159185 Physician Film Cleaner Urology 09/16/23 Aidee Valero PA-C [address] [place] [address] 129245 Assigned Musculoskeletal Provider 04/17/24 Tanisha Marlow 4120 [facility] [address] 03/30/24 documented as of this encounter
--- OUTSIDE RECORDS SUMMARY | 2024-08-03 23:19 | XMS_ITS | Encounter Summary ---
Author Organization [facility] Address [address] [place] [address] 22375 Care Team Providers Care Accountant Auditor Name Role Phone Carlos Joyner MD Unavailable [phone] Jadon Murray MD Unavailable + [phone] Maru Villagomez RN Unavailable Unavailable Ignacia Duran MD Primary Care Provider [phone] Ang Slade MD Unavailable [phone] Carlos Joyner MD Unavailable [phone] Ang Slade MD Unavailable [phone] Lakshmi Wilhelm-C Unavailable [phone] Heladio Willoughby MD Primary Care Provider [phone] Heladio Willoughby MD Unavailable Alissa Perez PA-C Unavailable [phone] Lakshmi Wilhelm-C Unavailable [phone] Aidee Valero PA-C Unavailable [phone] Encounter Details Date Type Department Care Team (Late st Contact Info) Description 12/30/2022 [facility] [address] [place] [address] Analisa Palacio, OTILIO Social History [...] Description 09/07/2024 8:30 AM CDT Virtual Visit [facility] Clinic [address] [place] [phone] Carlos Joyner MD [address] [place] [address] 226135 09/13/2024 11:00 AM CDT Office Visit [facility] [address] [place] [phone] [place] [address] [place], [place] 2120468 09/20/2024 11:00 AM CDT Office Visit [facility] [address] [phone] Sugey Mccoy, MANAGER MOBILITY [address] 966194 documented as of this encounter Visit Diagnoses Not on filedocumented in this encounter Additional Health Concerns Infection Onset Date Last Indicated Resolved Time MRSA Comment:Added from external infection. Pt has had Staph infections but never MRSA from Care everywhere chart review. Removing MRSA .14.23 06/17/2019 02/06/2023 9:41 AM C DT documented as of this encounter Care Teams Accountant Auditor Relationship Specialty Start Date End Date Ignacia Duran MD PCP - General Pediatrics 01/20/20 03/04/23 [place] [address] [place] [address] PCP - General 03/05/23 Carlos Joyner MD [address] [place] [address] 53650 Urology 12/09/19 Jadon Murray MD [facility] [address] [address] Referring Physician Pediatric Surgery 12/09/19 Maru Villagomez, OTILIO Registered Nurse 12/10/19 Ang Slade MD [address] [place] [address] 470365 Urology 04/24/20 Carlos Joyner MD [address] [place] [address] 777465 Assigned Surgical Provider 12/24/20 Ang Slade MD [address] [place] [address] 73503 Urology 12/18/22 Lakshmi Wilhelm PA-C [address] [place] [address] 873395 Physician Automatic Outsole Cutter Urology 02/03/23 [place] [address] [place] [address] Assigned PCP 02/06/23 Alissa Perez PA-C [address] [place] [address] 113275 Physician Automatic Outsole Cutter Surgery 09/04/23 Lakshmi Wilhelm PA-C [address] [place] [address] 620575 Physician Automatic Outsole Cutter Urology 09/16/23 Aidee Valero PA-C [address] [place] [address] 420485 Assigned Musculoskeletal Provider 04/17/24 Tanisha Marlow 4120 [facility] [address] 03/30/24 documented as of this encounter
--- OUTSIDE RECORDS SUMMARY | 2024-08-03 23:19 | XMS_ITS | Encounter Summary ---
Author Organization [place] Address [address] [place] [address] 8[address]93 Care Team Providers Care Infrastructure Project Manager Name Role Phone Carlos Joyner MD Unavailable [phone] Jadon Murray MD Unavailable [phone] Maru Villagomez RN Unavailable Unavailable Ang Slade MD Unavailable [phone] Carlos Joyner MD Unavailable [phone] Ang Slade MD Unavailable +[phone] Lakshmi Wilhelm PA-C Unavailable +[phone] Heladio Willoughby MD Primary Care Provider [phone] Heladio Willoughby MD Unavailable Alissa Perez PA-C Unavailable [phone] Lakshmi Wilhelm PA-C Unavailable [phone] Aidee Valero PA-C Unavailable [phone] Encounter Details Date Type Department Care Team (Late st Contact Info) Description 06/23/2024 [facility] [address] [place] [address] Carlos Joyner MD [address] [place] [address] Social History Tobacco Use Types Packs/Day [...] Description 09/07/2024 8:30 AM CDT Virtual Visit [facility] Urology [address] [place] [address] Carlos Joyner MD [address] [place] [address] 941405 09/13/2024 11:00 AM CDT Office Visit [facility] [address] [place] [address] [place] [address] [place] [address] 09/20/2024 11:00 AM CDT Office Visit [facility] [address] [place] [phone] Sugey Mccoy, PERSONAL CARE AID [facility] [address] [facility] [address] [place], [place] 088394 documented as of this encounter Visit Diagnoses Not on filedocumented in this encounter Care Teams Infrastructure Project Manager Relationship Specialty Start [place] [address] [place] [address] PCP - General 03/05/23 Carlos Joyner MD [address] [place] [address] 127845 Urology 12/09/19 Jadon Murray MD [facility] 2530 [facility] 550 [place], [place] [phone] Referring Physician Pediatric Surgery 12/09/19 Maru Villagomez, RN Registered Nurse 12/10/19 Ang Slade MD [address] [place] [address] 62682 Urology 04/24/20 Carlos Joyner MD [address] [place] [address] 575145 Assigned Surgical Provider 12/24/20 Ang Slade MD [address] [place] [address] 394 [place] [address] Urology 12/18/22 Lakshmi Wilhelm PA-C [address] [place] [address] 531415 Physician Medical Device Sales Representative Urology 02/03/23 [place] [address] [facility] [place] [address] Assigned PCP 02/06/23 Alissa Perez PA-C [address] [place] [address] 428715 Physician Medical Device Sales Representative Surgery 09/04/23 Lakshmi Wilhelm PA-C [address] [place] [address] 753635 Physician Medical Device Sales Representative Urology 09/16/23 Aidee Valero PA-C [address] [place] [address] 353385 Assigned Musculoskeletal Provider 04/17/24 Tanisha Marlow 4120 [facility] [address] 03/30/24 documented as of this encounter
--- OUTSIDE RECORDS SUMMARY | 2024-08-03 23:20 | XMS_ITS | Encounter Summary ---
Author Organization [place] Address [address] [place] [address] 43857 Care Team Providers Care Dry Cleaner Name Role Phone Carlos Joyner MD Unavailable [phone] Jadon Murray MD Unavailable [phone] Maru Villagomez RN Unavailable Unavailable Ignacia Duran MD Primary Care Provider Ang Slade MD Unavailable Carlos Joyner MD Unavailable [phone] Annalise Orta PA-C Unavailable Ang Slade MD Unavailable Lakshmi Wilhelm-C Unavailable Heladio Willoughby MD Primary Care Provider Heladio Willoughby MD Unavailable Alissa Perez PA-C Unavailable [phone] Lakshmi Wilhelm PA-C Unavailable Aidee Valero PA-C Unavailable Encounter Details Date Type Department Care Team (Late st Contact Info) Description 09/17/2021 [facility] Urology Clinic [address] [place] [address] Carlos Joyner MD [address] [place] [address] Social History Tobacco Use Types Packs/Day [...] [facility] [address] [place] [phone] Carlos Joyner MD [address] [place] [address] 011925 09/13/2024 11:00 AM CDT Office Visit [address] [phone] Heladio Willoughby MD [address] [place] [address] 5316168 09/20/2024 11:00 AM CDT Office Visit [facility] Center [address] [address] Sugey Mccoy APRN [address] 072454 documented as of this encounter Visit Diagnoses Not on filedocumented in this encounter Additional Health Concerns Infection Onset Date Last Indicated Resolved Time MRSA Comment:Added from external infection. Pt has had Staph infections but never MRSA from Care everywhere chart review. Removing MRSA 9.14.06/17/2019 02/06/2023 9:41 AM C DT documented as of this encounter Care Teams Dry Cleaner Relationship Specialty Start Date End Date Ignacia Duran MD PCP - General Pediatrics 01/20/20 03/04/23 [place] [address] [place] [address] PCP - General 03/05/23 Carlos Joyner MD [address] [place] [address] 60613 Urology 12/09/19 Jadon Murray MD [facility] [address] [address] Referring Physician Pediatric Surgery 12/09/19 Maru Villagomez, OTILIO Registered Nurse 12/10/19 Ang Slade MD [address] [place] [address] 6[address]43 Urology 04/24/20 Carlos Joyner MD [address] [place] [address] 27785 Assigned Surgical Provider 12/24/20 Annalise Orta PA-C 5200 [place] [address] Assigned Cancer Care Provider 05/13/21 11/01/22 Ang Slade MD [address] 001035 Urology 12/18/22 Lakshmi Wilhelm PA-C [address] [place] [address] 21987 Physician Hard Rock Drill Operator Urology 02/03/23 [place] [address] [place] [address] Assigned PCP 02/06/23 Alissa Perez PA-C [address] [place] [address] 36127 Physician [place] Drill Operator Surgery 09/04/23 Lakshmi Wilhelm PA-C [address] [place] [address] 58012 Physician [place] Drill Operator Urology 09/16/23 Aidee Valero PA-C [address] [place] [address] 18942 Assigned Musculoskeletal Provider 04/17/24 Tanisha Marlow 4120 [facility] [address] 03/30/24 documented as of this encounter
--- OUTSIDE RECORDS SUMMARY | 2024-08-03 23:20 | XMS_ITS | Encounter Summary ---
Author Organization [place] Address [address] [place] [address] 24697 Care Team Providers Care Step Down Specialist Name Role Phone Carlos Joyner MD Unavailable [phone] Jadon Murray MD Unavailable [phone] Maru Villagomez RN Unavailable Unavailable Ang Slade MD Unavailable [phone] Carlos Joyner MD Unavailable [phone] Ang Slade MD Unavailable [phone] Lakshmi Wilhelm-C Unavailable [phone] Heladio Willoughby MD Primary Care Provider [phone] Heladio Willoughby MD Unavailable Alissa Perez PA-C Unavailable [phone] Lakshmi Wilhelm-C Unavailable [phone] Aidee Valero PA-C Unavailable [phone] Reason for Visit * Reason Onset Date Comments Call Back 04/21/2024 Pt still having UTI Symptoms. They are wanting to see about getting a new antibiotic. Please call Nurse is/it project manager at [phone]. Please call Yamini. As they would like to get something done prior to the holiday. Thanks Encounter Details Date Type Department Care Team ([facility] st Contact Info) Description 04/21/2024 Telephone [facility] Urology Clinic [address] 4th [place] [address] Carlos Joyner MD [address] [place] [address] 24687 Call Back (Pt still having UTI Symptoms. They are wanting to see about getting a new antibiotic. Please call Nurse is/it project manager at [phone]. Please call Yamini. As they would like [...] getting a new antibiotic. Please call Nurse is/it project manager at [phone]. Please call Yamini. As they would like to get something done prior to the holiday. Thanks Action Taken: Other: uro Travel Screening: Not Applicable Date of Service: ED TECH documented in this encounter Plan of Treatment Upcoming Encounters Date Type Department Care Team (Late st Contact Info) Description 09/07/2024 8:30 AM CDT Virtual Visit [facility] Urology Clinic [address] 4th [place] [phone] Carlos Joyner MD [address] [place] [address] 898015 09/13/2024 11:00 AM CDT Office Visit [facility] [address] [place] [phone] [place] [address] [place], [place] 5470168 09/20/2024 11:00 AM CDT Office Visit [facility] Center [address] [phone] Sugey Mccoy, INTELLECTUAL PROPERTY LEGAL ASSISTANT [address] 994484 documented as of this encounter Visit Diagnoses Not on filedocumented in this encounter Care Teams Step Down Specialist Relationship Specialty [place] [address] [place], [place] [phone] PCP - General 03/05/23 Carlos Joyner MD [address] [place] [address] 91391 Urology 12/09/19 Jadon Murray MD [facility] [address] [facility] 550 [place] [address] Referring Physician Pediatric Surgery 12/09/19 Maru Villagomez, RN Registered Nurse 12/10/19 Ang Slade MD [address] [place] [address] 394 [place], [place] 967665 Urology 04/24/20 Carlos Joyner MD [address] [place] [address] 735955 Assigned Surgical Provider 12/24/20 Ang Slade MD [address] [place] [address] 394 [place], [place] 547875 Urology 12/18/22 Lakshmi Wilhelm PA-C [address] [place] [address] 000185 Physician Flipping Machine Operator Urology 02/03/23 [place] [address] [place] [address] Assigned PCP 02/06/23 Alissa Perez PA-C [address] [place] [address] 449035 Physician Flipping Machine Operator Surgery 09/04/23 Lakshmi Wilhelm PA-C [address] [place] [address] 443045 Physician Flipping Machine Operator Urology 09/16/23 Aidee Valero, [facility] 9 [place] [address] Assigned Musculoskeletal Provider 04/17/24 Tanisha Marlow 4120 [facility] [address] 03/30/24 documented as of this encounter
--- OUTSIDE RECORDS SUMMARY | 2024-08-03 23:20 | XMS_ITS | Encounter Summary ---
Author Organization [place] Address [address] [place] [address] 79354 Care Team Providers Care Representative Government Relations Name Role Phone Carlos Joyner MD Unavailable [phone] Jadon Murray MD Unavailable [phone] Maru Villagomez RN Unavailable Unavailable Ignacia Duran MD Primary Care Provider [phone] Ang Slade MD Unavailable [phone] Carlos Joyner MD Unavailable [phone] Annalise Orta PA-C Unavailable [phone] Ang Slade MD Unavailable [phone] Lakshmi Wilhelm PA-C Unavailable [phone] Heladio Willoughby MD Primary Care Provider [phone] Heladio Willoughby MD Unavailable Alissa Perez PA-C Unavailable [phone] Lakshmi Wilhelm PA-C Unavailable [phone] Aidee Valero PA-C Unavailable [phone] Encounter Details Date Type Department Care Team (Late st Contact Info) Description 07/31/2021 [facility] [address] 5th [place] [address] Makenzie Drummond, RN Social History [...] CDT Virtual Visit [facility] Urology Clinic [address] 4th [place] [address] Carlos Joyner MD [address] [place] [place] [address] 535975 09/13/2024 11:00 AM CDT Office Visit [facility] [address] [place] [phone] [place] [address] [place], [place] 0822868 09/20/2024 11:00 AM CDT Office Visit [facility] [place] [address] [place] [phone] Sugey Mccoy, NUCLEAR FUEL PROCESSING TECHNICIAN [facility] [address] [place] [address] 106 [place], [place] [phone] documented as of this encounter Visit Diagnoses Not on filedocumented in this encounter Additional Health Concerns Infection Onset Date Last Indicated Resolved Time MRSA Comment:Added from external infection. Pt has had Staph infections but never MRSA from Care everywhere chart review. Removing MRSA 02.06.23 06/17/2019 02/06/2023 9:41 AM C DT documented as of this encounter Care Teams Representative Government Relations Relationship Specialty Start Date End Date Ignacia Duran MD PCP - General Pediatrics 01/20/20 03/04/23 [place] [address] [place] [address] PCP - General 03/05/23 Carlos Joyner MD [address] [place] [place] [address] Urology 12/09/19 Jadon Murray MD [facility] [address] [address] Referring Physician Pediatric Surgery 12/09/19 Maru Villagomez, RN Registered Nurse 12/10/19 Ang Slade MD [address] [place] [address] 090265 Urology 04/24/20 Carlos Joyner MD [address] [place] [place] [address] 063435 Assigned Surgical Provider 12/24/20 Annalise Orta PA-C 5200 [place] [address] Assigned Cancer Care Provider 05/13/21 11/01/22 Ang Slade MD [address] [place] [address] 206885 Urology 12/18/22 Lakshmi Wilhelm PA-C [address] [place] [place] [address] 03521 Physician Rn Call Center Urology 02/03/23 [place] [address] [place] [address] Assigned PCP 02/06/23 Alissa Perez PA-C [address] [place] [address] 41905 Physician Rn Call Center Surgery 09/04/23 Lakshmi Wilhelm PA-C [address] [place] [address] 82616 Physician Rn Call Center Urology 09/16/23 Aidee Valero PA-C [address] [place] [address] 62212 Assigned Musculoskeletal Provider 04/17/24 Tanisha Marlow 4120 [facility] [address] 03/30/24 documented as of this encounter
--- OUTSIDE RECORDS SUMMARY | 2024-08-03 23:20 | XMS_ITS | Encounter Summary ---
Author Organization [facility] Address [address] [place] [address] 32534 Care Team Providers Care Computer Repair Engineer Name Role Phone Carlos Joyner MD Unavailable [phone] Jadon Murray MD Unavailable [phone] Maru Villagomez RN Unavailable Unavailable Ang Slade MD Unavailable [phone] Carlos Joyner MD Unavailable +[phone] Ang Slade MD Unavailable [phone] Lakshmi Wilhelm PA-C Unavailable [phone] Heladio Willoughby MD Primary Care Provider [phone] Heladio Willoughby MD Unavailable Alissa Perez PA-C Unavailable [phone] Lakshmi Wilhelm PA-C Unavailable [phone] Aidee Valero PA-C Unavailable [phone] Encounter Details Date Type Department Care Team (Late st Contact Info) Description 06/25/2023 [facility] [address] [place] [address] Carlos Joyner MD [address] [place] [address] Social History Tobacco Use Types Packs/Day [...] Description 09/07/2024 8:30 AM CDT Virtual Visit [facility] Urology [address] [place] [address] Carlos Joyner MD [address] [place] [address] 048495 09/13/2024 11:00 AM CDT Office Visit [facility] [address] [place] [address] [place] [address] [place] [address] 09/20/2024 11:00 AM CDT Office Visit [facility] [address] [place] [phone] Sugey Mccoy, CUSTOMER SUPPLY CHAIN ANALYST [facility] [address] [facility] [address] [place], [place] 0307[address] documented as of this encounter Visit Diagnoses Not on filedocumented in this encounter Care Teams Computer Repair Engineer Relationship Specialty Start [place] [address] [place] [address] PCP - General 03/05/23 Carlos Joyner MD [address] [place] [address] 662395 Urology 12/09/19 Jadon Murray MD [facility] 2530 [facility] 550 [place], [place] [phone] Referring Physician Pediatric Surgery 12/09/19 Maru Villagomez, RN Registered Nurse 12/10/19 Ang Slade MD [address] [place] [address] 51168 Urology 04/24/20 Carlos Joyner MD [address] [place] [address] 112395 Assigned Surgical Provider 12/24/20 Ang Slade MD [address] [place] [address] 394 [place] [address] Urology 12/18/22 Lakshmi Wilhelm PA-C [address] [place] [address] 364095 Physician Co Op Urology 02/03/23 [place] [address] [facility] [place] [address] Assigned PCP 02/06/23 Alissa Perez PA-C [address] [place] [address] 949785 Physician Co Op Surgery 09/04/23 Lakshmi Wilhelm PA-C [address] [place] [address] 031355 Physician Co Op Urology 09/16/23 Aidee Valero PA-C [address] [place] [address] 151915 Assigned Musculoskeletal Provider 04/17/24 Tanisha Marlow 4120 [facility] [address] 03/30/24 documented as of this encounter
--- OUTSIDE RECORDS SUMMARY | 2024-08-03 23:20 | XMS_ITS | Encounter Summary ---
Author Organization [place] Address [address] [place] [address] 96853 Care Team Providers Care Tool Grinder Name Role Phone Carlos Joyner MD Unavailable [phone] Jdaon Murray MD Unavailable [phone] Maru Villagomez RN Unavailable Unavailable Ignacia Duran MD Primary Care Provider [phone] Ang Slade MD Unavailable [phone] Carlos Joyner MD Unavailable +[phone] Annalise Orta PA-C Unavailable [phone] Ang Slade MD Unavailable [phone] Lakshmi Wilhelm PA-C Unavailable [phone] Heladio Willoughby MD Primary Care Provider [phone] Heladio Willoughby MD Unavailable Alissa Perez PA-C Unavailable [phone] Lakshmi Wilhelm PA-C Unavailable [phone] Aidee Valero PA-C Unavailable [phone] Encounter Details Date Type Department Care Team (Late st Contact Info) Description 07/19/2021 [facility] [place] 65[address] [facility] 4th [place] [address] Shyann Rehman Social History Tobacco [...] COVID-19? No / Unsure 06/19/2021 11:16 AM DIRECTOR OUTCOMES documented as of this encounter Plan of Treatment Upcoming Encounters Date Type Department Care Team (Late st Contact Info) Description 09/07/2024 8:30 AM CDT Virtual Visit [facility] Urology Clinic [address] 4th [place] [phone] Carlos Joyner MD [address] [place] [address] 09/13/2024 11:00 AM CDT Office Visit [facility] [address] [place] [address] [place] [address] [place], [place] 7561468 09/20/2024 11:00 AM CDT Office Visit [facility] [place] [address] [place] [address] [phone] Sugey Mccoy, STITCHER FEEDER [facility] [address] [place] [address] 59030454 documented as of this encounter Visit Diagnoses Not on filedocumented in this encounter Additional Health Concerns Infection Onset Date Last Indicated Resolved Time MRSA Comment:Added from external infection. Pt has had Staph infections but never MRSA from Care everywhere chart review. Removing MRSA .14.06/17/2019 02/06/2023 9:41 AM C DT documented as of this encounter Care Teams Tool Grinder Relationship Specialty Start Date End Date Ignacia Duran MD PCP - General Pediatrics 01/20/20 03/04/23 [place] [address] [place] [address] PCP - General 03/05/23 Carlos Joyner MD [address] [place] [address] 971625 Urology 12/09/19 Jadon Murray MD [facility] [address] [id number] Referring Physician Pediatric Surgery 12/09/19 Maru Villagomez, OTILIO Registered Nurse 12/10/19 Ang Slade MD [address] [place] [address] 839[address] Urology 04/24/20 Carlos Joyner MD [address] [place] [address] 612315 Assigned Surgical Provider 12/24/20 Annalise Orta PA-C 5200 [place] [address] Assigned Cancer Care Provider 05/13/21 11/01/22 Ang Slade MD [address] [place] [address] 326375 Urology 12/18/22 Lakshmi Wilhelm PA-C [address] [place] [address] 573045 Physician Assembler Gold Frame Urology 02/03/23 [place] [address] [place] [address] Assigned PCP 02/06/23 Alissa Perez PA-C [address] [place] [address] 388795 Physician Assembler Gold Frame Surgery 09/04/23 Lakshmi Wilhelm PA-C [address] [place] [address] 989935 Physician Assembler Gold Frame Urology 09/16/23 Aidee Valero PA-C 909 [place], [place] 567505 Assigned Musculoskeletal Provider 04/17/24 Tanisha Marlow 4120 [facility] [address] 03/30/24 documented as of this encounter
--- OUTSIDE RECORDS SUMMARY | 2024-08-03 23:20 | XMS_ITS | Encounter Summary ---
Author Organization [facility] Address [address] [place] [address] Care Team Providers Care Machine Washer Name Role Phone Carlos Joyner MD Unavailable [phone] Jadon Murray MD Unavailable +[phone] Maru Villagomez RN Unavailable Unavailable Ang Slade MD Unavailable +[phone] Carlos Joyner MD Unavailable +[phone] Ang Slade MD Unavailable [phone] Lakshmi WilhelmC Unavailable [phone] Heladio Willoughby MD Primary Care Provider [phone] Heladio Willoughby MD Unavailable Alissa Perez PA-C Unavailable [phone] Lakshmi WilhelmC Unavailable [phone] Aidee ValeroC Unavailable +[phone] Encounter Details Date Type Department Care Team (Late st Contact Info) Description 03/30/2024 Telephone [facility] [address] 4th [place] [address] Aidee Valero PA-C [address] [place] [address] Social History Tobacco Use Types Packs/Day [...] Natalie Abdullahi - 03/30/2024 3:[address] [facility] Call Center Phone Message May a detailed message be left on voicemail: yes Reason for Call: Other: Anna is calling from Medical Records at [facility]. She is calling as she wants to know the time frame of records that are being requested? Action Taken: Other: te Travel Screening: Not Applicable Date of Service: CIATE CIVIL ENGINEER documented in this encounter Plan of Treatment Upcoming Encounters Date Type Department Care Team (Late st Contact Info) Description 09/07/2024 8:30 AM CDT Virtual Visit [facility] [place] [address] [facility] 4th [place] [address] Carlos Joyner MD [address] [place] [address] 920955 09/13/2024 11:00 AM CDT Office Visit [facility] [address] [place] [phone] [place] [address] [place], [place] 3303768 09/20/2024 11:00 AM CDT Office Visit [facility] [address] [facility] [place] [phone] Sugey Mccoy APRN [facility] [address] [place] [address] 106 [place], [place] [id number] documented as of this encounter Visit Diagnoses Not on filedocumented in this encounter Care Teams Machine Washer Relationship Specialty Start Date End [place] [id number] [place] [address] PCP - General 03/05/23 Carlos Joyner MD [address] [place] [address] 831775 Urology 12/09/19 Jadon Murray MD [facility] 2530 [facility] 550 [place] [address] Referring Physician Pediatric Surgery 12/09/19 Maru Villagomez, RN Registered Nurse 12/10/19 Ang Slade MD [address] [place] [address] 394 [place], [place] 528965 Urology 04/24/20 Carlos Joyner MD [address] [place] [address] 428905 Assigned Surgical Provider 12/24/20 Ang Slade MD [address] [place] [address] 246515 Urology 12/18/22 Lakshmi Wilhelm PA-C [address] [place] [address] 869575 Physician Director Compliance Urology 02/03/23 [place] [address] [place] [address] Assigned PCP 02/06/23 Alissa Perez PA-C [address] [place] [address] 131515 Physician Director Compliance Surgery 09/04/23 Lakshmi Wilhelm PA-C [address] [place] [address] 803425 Physician Director Compliance Urology 09/16/23 Aidee Valero PA-C [address] [place] [address] 874165 Assigned Musculoskeletal Provider 04/17/24 Tanisha Marlow 4120 [facility] [address] 03/30/24 documented as of this encounter
--- OUTSIDE RECORDS SUMMARY | 2024-08-03 23:20 | XMS_ITS | Encounter Summary ---
Author Organization [facility] Address [address] [place] [address] Care Team Providers Care Learning Coach Name Role Phone Carlos Joyner MD Unavailable [phone] Jadon Murray MD Unavailable +[phone] Maru Villagomez RN Unavailable Unavailable Ang Slade MD Unavailable +[phone] Carlos Joyner MD Unavailable [phone] Ang Slade MD Unavailable +[phone] Lakshmi Wilhelm-C Unavailable +[phone] Heladio Willoughby MD Primary Care Provider [phone] Heladio Willoughby MD Unavailable Alissa Perez PA-C Unavailable [phone] Lakshmi Wilhelm-C Unavailable [phone] Aidee Valero PA-C Unavailable [phone] Encounter Details Date Type Department Care Team (Late st Contact Info) Description 07/01/2023 [facility] Medical Advice [facility] [address] [place] [address] Joao Arceo MA Social History Tobacco [...] Upcoming Encounters Date Type Department Care Team ([facility] st Contact Info) Description 09/07/2024 8:30 AM CDT Virtual Visit [facility] [address] 4th [place] [address] Carlos Joyner MD [address] [place] [address] 09/13/2024 11:00 AM CDT Office Visit [facility] [address] [place] [address] [place] [address] [place] [address] 09/20/2024 11:00 AM CDT Office Visit [facility] [address] [place] [address] Sugey Mccoy, CENTRIFUGAL DRIER OPERATOR [facility] [address] [place], [place] [address]E [address] [place] [address] documented as of this encounter Visit Diagnoses Not on filedocumented in this encounter Care Teams Learning Coach Relationship Specialty [place] [address] [place] [address] PCP - General 03/05/23 Carlos Joyner MD [address] [place] [address] Urology 12/09/19 Jadon Murray MD [facility] [address] [facility] [address] 550 [place] [address] Referring Physician Pediatric Surgery 12/09/19 Maru Villagomez, OTILIO Registered Nurse 12/10/19 Ang Slade MD [address] [address] Urology 04/24/20 Carlos Joyner MD [address] [place] [address] Assigned Surgical Provider 12/24/20 Ang Slade MD [address] [address] Urology 12/18/22 Lakshmi Wilhelm PA-C [address] [place] [address] Physician Mirror Inspector Urology 02/03/23 [place] [address] [place] [address] Assigned PCP 02/06/23 Alissa Perez PA-C [address] [place] [address] Physician Mirror Inspector Surgery 09/04/23 Lakshmi Wilhelm PA-C [address] [place] [address] Physician Mirror Inspector Urology 09/16/23 Aidee Valero PA-C [address] [place] [address] Assigned Musculoskeletal Provider 04/17/24 Tanisha Marlow 4120 [facility] [address] 03/30/24 documented as of this encounter
--- OUTSIDE RECORDS SUMMARY | 2024-08-03 23:20 | XMS_ITS | Encounter Summary ---
Author Organization [facility] Address [address] [place] [address] Care Team Providers Care Professor Sculpture Name Role Phone Carlos Joyner MD Unavailable [phone] Jadon Murray MD Unavailable [phone] Maru Villagomez RN Unavailable Unavailable Ang Slade MD Unavailable [phone] Carlos Joyner MD Unavailable +[phone] Ang Slade MD Unavailable +[phone] Lakshmi Wilhelm PA-C Unavailable +[phone] Heladio Willoughby MD Primary Care Provider [phone] Heladio Willoughby MD Unavailable Alissa Perez PA-C Unavailable [phone] Lakshmi Wilhelm PA-C Unavailable [phone] Aidee Valero PA-C Unavailable [phone] Encounter Details Date Type Department Care Team (Late st Contact Info) Description 02/13/2024 [facility] [address] [place] [address] Carlos Joyner MD [address] [place] [address] Social History Tobacco Use Types Packs/Day [...] AM CDT Virtual Visit [facility]rology [address]th [place] [address] Carlos Joyner MD [address] [place] [address] 934915 09/13/2024 11:00 AM CDT Office [facility] [address] [place] [address] [place] [address] [place] [address] 09/20/2024 11:00 AM CDT Office Visit [facility] [address] [place] [phone] Sugey Mccoy, AMUSEMENT PARK WORKER [facility] [address] [facility] [address] [place], [place] 495204 documented as of this encounter Visit Diagnoses Not on filedocumented in this encounter Care Teams Professor Sculpture Relationship Specialty Start [place] [address] [place] [address] PCP - General 03/05/23 aCrlos Joyner MD [address] [place] [address] 471985 Urology 12/09/19 Jadon Murray MD [facility] [address] [facility] 550 [place], [place] 30[address] Referring Physician Pediatric Surgery 12/09/19 Maru Villagomez, RN Registered Nurse 12/10/19 Ang Slade MD [address] [place] [address] Urology 04/24/20 Carlos Joyner MD [address] [place] [address] 865705 Assigned Surgical Provider 12/24/20 Ang Slade MD [address] [place] [address] 394 [place] [address] Urology 12/18/22 Lakshmi Wilhelm PA-C [address] [place] [address] 799225 Physician Finance Professor Urology 02/03/23 [place] [address] [facility] [address] Assigned PCP 02/06/23 Alissa Perez PA-C [address] [place] [address] 167315 Physician Finance Professor Surgery 09/04/23 Lakshmi Wilhelm PA-C [address] [place] [address] 336525 Physician Finance Professor Urology 09/16/23 Aidee Valero PA-C [address] [place] [address] 652775 Assigned Musculoskeletal Provider 04/17/24 Tanisha Marlow 4120 [facility] [address] 03/30/24 documented as of this encounter
--- OUTSIDE RECORDS SUMMARY | 2024-08-03 23:20 | XMS_ITS | Encounter Summary ---
Author Organization [facility] Address [address] [place] [address] Care Team Providers Care Propulsion Motor And Generator Repairer Name Role Phone Carlos Joyner MD Unavailable [phone] Jadon Murray MD Unavailable [phone] Maru Villagomez RN Unavailable Unavailable Ignacia Duran MD Primary Care Provider Ang Slade MD Unavailable [phone] Carlos Joyner MD Unavailable +[phone] Annalise Orta PA-C Unavailable [phone] Ang Slade MD Unavailable [phone] Lakshmi Wilhelm-C Unavailable [phone] Heladio Willoughby MD Primary Care Provider [phone] Heladio Willoughby MD Unavailable Alissa Perez PA-C Unavailable [phone] Lakshmi Wilhelm PA-C Unavailable [phone] Aidee Valero PA-C Unavailable [phone] Encounter Details Date Type Department Care Team (Late st Contact Info) Description 06/19/2021 [facility] [address] [address] Jenna Mcfadden, RN Social History [...] COVID-19? No / Unsure 06/19/2021 11:16 AM MATH SPECIALIST documented as of this encounter Plan of Treatment Upcoming Encounters Date Type Department Care Team (Late st Contact Info) Description 09/07/2024 8:30 AM CDT Virtual Visit [facility] [address] 4th [place] [phone] Carlos Joyner MD [address] [place] [address] 09/13/2024 11:00 AM CDT Office Visit [facility] [address] [place] [phone] [place] [address] [place], [place] 4503668 09/20/2024 11:00 AM CDT Office Visit [facility] [place] [address] [place] [phone] Sugey Mccoy, PAYROLL ACCOUNTING MANAGER [address] [phone] documented as of this encounter Visit Diagnoses Not on filedocumented in this encounter Additional Health Concerns Infection Onset Date Last Indicated Resolved Time MRSA Comment:Added from external infection. Pt has had Staph infections but never MRSA from Care everywhere chart review. Removing MRSA 9.14.23 06/17/2019 02/06/2023 9:41 AM C DT documented as of this encounter Care Teams Propulsion Motor And Generator Repairer Relationship Specialty Start Date End Date Ignacia Duran MD PCP - General Pediatrics 01/20/20 03/04/23 [place] [address] [place] [address] PCP - General 03/05/23 Carlos Joyner MD [address] [place] [address] 473865 Urology 12/09/19 Jadon Murray MD [facility] [address] [address] Referring Physician Pediatric Surgery 12/09/19 Maru Villagomez, OTILIO Registered Nurse 12/10/19 Ang Slade MD [address] [place] [address] Urology 04/24/20 Carlos Joyner MD [address] [place] [address] Assigned Surgical Provider 12/24/20 Annalise Orta PA-C 5200 [place] [address] Assigned Cancer Care Provider 05/13/21 11/01/22 Ang Slade MD [address] [place] [address] 095155 Urology 12/18/22 Lakshmi Wilhelm PA-C [address] [place] [address] 948465 Physician Turn Down Worker Urology 02/03/23 [place] [address] [place] [address] Assigned PCP 02/06/23 Alissa Perez PA-C [address] [place] [address] 236325 Physician Turn Down Worker Surgery 09/04/23 Lakshmi Wilhelm PA-C [address] [place] [address] 386075 Physician Turn Down Worker Urology 09/16/23 Aidee Valero PA-C 909 [place], [place] 705585 Assigned Musculoskeletal Provider 04/17/24 Tanisha Marlow 4120 [facility] [address] 03/30/24 documented as of this encounter
--- OUTSIDE RECORDS SUMMARY | 2024-08-03 23:20 | XMS_ITS | Encounter Summary ---
Author Organization [employer] Address [address] [place] [address] Care Team Providers Care Metal Casket Assembler Name Role Phone Carlos Joyner MD Unavailable [phone] Jadon Murray MD Unavailable + [phone] Maru Villagomez RN Unavailable Unavailable Ang Slade MD Unavailable [phone] Carlos Joyner MD Unavailable [phone] Ang Slade MD Unavailable [phone] Lakshmi Wilhelm-C Unavailable [phone] Heladio Willoughby MD Primary Care Provider [phone] Heladio Willoughby MD Unavailable Alissa Perez PA-C Unavailable [phone] Lakshmi Wilhelm-C Unavailable [phone] Aidee Valero PA-C Unavailable [phone] Encounter Details Date Type Department Care Team (Late st Contact Info) Description 07/26/2024 Medical Correspondence [facility] Health Information Management [address] [facility] [address] [place] [address] Scan, Non-Provider Social History Tobacco Use Types [...] than three times a week 07/16/2024 Attends Orthodox Services Not on file 07/16 Active Member of Clubs or Organizations Not on f ile 07/16/2024 Attends Club or Organization Meetings Not on antelmo e 07/16/2024 Marital Status Not on file 07/16/2024 PHQ-2 Answer Date Recorded PHQ-2 Score Incomplete 07/21/2024 [facility] Answer Date Recorded [...] in an overnight nursing home, or couch-surfing.) No 07/16/2024 Are you [...] Description 09/07/2024 8:30 AM CDT Virtual Visit [facility] [address] 4th [place] [address] Carlos Joyner MD [address] [place] [address] 09/13/2024 11:00 AM CDT Office Visit [facility] [address] [place] [address] [place] [address] [place], [place] 8969468 09/20/2024 11:00 AM CDT Office Visit [facility] Sleep [address] [place] [phone] Sugey Mccoy, SENIOR COGNOS DEVELOPER [address] [place], [place] 518934 documented as of this encounter Visit Diagnoses Not on filedocumented in this encounter Care Teams Metal Casket Assembler Relationship Specialty [place] [address] [place], [place] [phone] PCP - General 03/05/23 Carlos Joyner MD [address] [place] [address] Urology 12/09/19 Jadon Murray MD [facility] [address] [place] [address] Referring Physician Pediatric Surgery 12/09/19 Maru Villagomez, RN Registered Nurse 12/10/19 Ang Slade MD [address] [place] [address] 436865 Urology 04/24/20 Carlos Joyner MD [address] [place] [address] 794375 Assigned Surgical Provider 12/24/20 Ang Slade MD [address] [place] [address] 749115 Urology 12/18/22 Lakshmi Wilhelm PA-C [address] [place] [address] 472405 Physician Straddle Bug Driver Urology 02/03/23 [place] [address] [place] [address] Assigned PCP 02/06/23 Alissa Perez PA-C [address] [place] [address] 679835 Physician Straddle Bug Driver Surgery 09/04/23 Lakshmi Wilhelm PA-C [address] [place] [address] 605975 Physician Straddle Bug Driver Urology 09/16/23 Aidee Valero PA-C [address] [place] [address] 557785 Assigned Musculoskeletal Provider 04/17/24 Tanisha Marlow 4120 [facility] [address] 03/30/24 documented as of this encounter
--- OUTSIDE RECORDS SUMMARY | 2024-08-03 23:20 | XMS_ITS | Encounter Summary ---
Author Organization [facility] Address [address] [place] [address] Care Team Providers Care Dining Car Hop Name Role Phone Carlos Joyner MD Unavailable [phone] Jadon Murray MD Unavailable [phone] Maru Villagomez RN Unavailable Unavailable Ignacia Duran MD Primary Care Provider [phone] Ang Slade MD Unavailable [phone] Carlos Joyner MD Unavailable [phone] Annalise Orta PA-C Unavailable Ang Slade MD Unavailable Lakshmi Wilhelm-C Unavailable [phone] Heladio Willoughby MD Primary Care Provider Heladio Willoughby MD Unavailable Alissa Perez PA-C Unavailable [phone] Lakshmi Wilhelm-C Unavailable [phone] Aidee Valero PA-C Unavailable +[phone] Reason for Visit * Reason Onset Date Comments Call Back 06/27/2021 Bladder infectio n Encounter Details Date Type Department Care Team (Late st Contact Info) Description 06/27/2021 Telephone [facility] [address] 4th [place] [address] Carlos Joyner MD [address] [place] [address] Call Back (Bladder infection) Social History [...] COVID-19? No / Unsure 06/19/2021 11:16 AM NURSING CLINICAL DIRECTOR documented as of this encounter Miscellaneous Notes * Telephone Encounter - Karen Sheth - 06/27/2021 12:22 PM CST [facility] Phone Message May a detailed [...] Center ([facility]): uro Travel Screening: Not Applicable ING CLINICAL DIRECTOR documented in this encounter Plan of Treatment Upcoming Encounters Date Type Department Care Team (Late st Contact Info) Description 09/07/2024 8:30 AM CDT Virtual Visit [facility] [address] 4th [place] [phone] Carlos Joyner MD [address] [place] [address] 09/13/2024 11:00 AM CDT Office Visit [facility] [address] [place] [address] [place] [address] [place] [address] 09/20/2024 11:00 AM CDT Office Visit [facility] [address] [place] [address] Sugey Mccoy, CURTAIN FELLER BLINDSTITCH [facility] [address] [place] [address] [address] [place], [place] 9085[address] documented as of this encounter Visit Diagnoses Not on filedocumented in this encounter Additional Health Concerns Infection Onset Date Last Indicated Resolved Time MRSA Comment:Added from external infection. Pt has had Staph infections but never MRSA from Care everywhere chart review. Removing MRSA 02.06.23 06/17/2019 02/06/2023 9:41 AM C DT documented as of this encounter Care Teams Dining Car Hop Relationship Specialty Start Date End Date Ignacia Duran MD PCP - General Pediatrics 01/20/20 03/04/23 [place] [address] [place] [address] PCP - General 03/05/23 Carlos Joyner MD 9 [place] [address] Urology 12/09/19 Jadon Murray MD [facility] 2530 [facility] 550 [place] [address] Referring Physician Pediatric Surgery 12/09/19 Maru Villagomez, OTILIO Registered Nurse 12/10/19 Ang Slade MD [address] [place] [address] 394 [place] [address] Urology 04/24/20 Carlos Joyner MD [address] [place] [address] Assigned Surgical Provider 12/24/20 Annalise Orta PA-C 5200 [place] [address] Assigned Cancer Care Provider 05/13/21 11/01/22 Ang Slade MD [address] [place] [address] Urology 12/18/22 Lakshmi Wilhelm PA-C [address] [place] [address] Physician Brazing Furnace Operator Urology 02/03/23 [place] [address] [place] [address] Assigned PCP 02/06/23 Alissa Perez PA-C [address] [place] [address] Physician Brazing Furnace Operator Surgery 09/04/23 Lakshmi Wilhelm PA-C [address] [place] [address] Physician Brazing Furnace Operator Urology 09/16/23 Aidee Valero PA-C [address] [place] [address] 035655 Assigned Musculoskeletal Provider 04/17/24 Tanisha Marlwo 4120 [facility] [address] 03/30/24 documented as of this encounter
--- OUTSIDE RECORDS SUMMARY | 2024-08-03 23:20 | XMS_ITS | Encounter Summary ---
Author Organization [place] Address [address] [place] [address] Care Team Providers Care Jelly Filter Tender Name Role Phone Carlos Joyner MD Unavailable [phone] Jadon Murray MD Unavailable [phone] Maru Villagomez RN Unavailable Unavailable Ang Slade MD Unavailable [phone] Carlos Joyner MD Unavailable [phone] Ang Slade MD Unavailable [phone] Lakshmi WilhelmC Unavailable [phone] Heladio Willoughby MD Primary Care Provider [phone] Heladio Willoughby MD Unavailable Alissa Perez PA-C Unavailable [phone] Lakshmi WilhelmC Unavailable [phone] Aidee ValeroC Unavailable [phone] Encounter Details Date Type Department Care Team (Late st Contact Info) Description 04/01/2024 [facility] [address] [place] [address] Aidee Valero PA-C [address] [place] [address] Social History Tobacco Use Types Packs/Day [...] 09/07/2024 8:30 AM CDT Virtual Visit [facility] Urology [address] [phone] Carlos Joyner MD [address] [place] [address] 041915 09/13/2024 11:00 AM CDT Office Visit [facility] [address] [place] [address] [place] [address] [facility] [place] [id number] 09/20/2024 11:00 AM CDT Office Visit [facility] [address] [place] [phone] Sugey Mccoy, SPOOLER OPERATOR IMAGING SYSTEM ADMINISTRATOR [address] [place], [place] [address]E [address] [place], [place] [address] documented as of this encounter Visit Diagnoses Not on filedocumented in this encounter Care Teams Jelly Filter Tender Relationship Specialty [place] [address] [facility] [place], [place] 1032768 PCP - General 03/05/23 Carlos Joyner MD [address] [place] [address] 495105 Urology 12/09/19 Jadon Murray MD [facility] 2530 [facility] 550 [place], [place] [id number] Referring Physician Pediatric Surgery 12/09/19 Maru Villagomez RN Registered Nurse 12/10/19 Ang Slade MD [address] [place] [address] Urology 04/24/20 Carlos Joyner MD [address] [place] [address] 069575 Assigned Surgical Provider 12/24/20 Ang Slade MD [address] [place] [address] 394 [place] [address] Urology 12/18/22 Lakshmi Wilhelm PA-C [address] [place] [address] 022135 Physician Test Deck Supervisor Urology 02/03/23 [place] [address] [facility] [place] [address] Assigned PCP 02/06/23 Alissa Perez PA-C [address] [place] [address] 615105 Physician Test Deck Supervisor Surgery 09/04/23 Lakshmi Wilhelm PA-C [address] [place] [address] 143215 Physician Test Deck Supervisor Urology 09/16/23 Aidee Valero PA-C [address] [place] [address] 995585 Assigned Musculoskeletal Provider 04/17/24 Tanisha Marlow 4120 [facility] [address] 03/30/24 documented as of this encounter
--- OUTSIDE RECORDS SUMMARY | 2024-08-03 23:20 | XMS_ITS | Encounter Summary ---
Author Organization [facility] Address [address] [place] [address]. [place] [address] Care Team Providers Care Archives Specialist Name Role Phone Carlos Joyner MD Unavailable [phone] Jadon Murray MD Unavailable [phone] Maru Villagomez RN Unavailable Unavailable Ang Slade MD Unavailable [phone] Carlos Joyner MD Unavailable [phone] Ang Slade MD Unavailable [phone] Lakshmi Wilhelm-C Unavailable [phone] Heladio Willoughby MD Primary Care Provider [phone] Heladio Willoughby MD Unavailable Alissa Perez PA-C Unavailable [phone] Lakshmi Wilhelm PA-C Unavailable [phone] Aidee Valero PA-C Unavailable [phone] Encounter Details Date Type Department Care Team (Late st Contact Info) Description 07/23/2024 Telephone [facility] [address] [place] [address] [place] [address] [place] [address] Social History Tobacco Use Types [...] Answer Date Recorded PHQ-2 Score Incomplete 07/21/2024 [facility] Occupat ional Health - Occupational Stress [...] building, in an overnight correction, or couch-surfing.) No 07/16/2024 Are you worried [...] - 07/26/2024 2:50 PM CST Faxed to [employer]. Kasia Kang Lead Flatwork Washer [facility] ITORY DEVELOPMENT MANAGER * Telephone Encounter - Heladio Willoughby MD - 07/26/2024 2:18 PM CST Signed. Placed in outgoing box. [facility] ITORY DEVELOPMENT MANAGER * Telephone Encounter - Kasia Kang - 07/23/2024 4:33 PM CST Placed form in provider's basket for review and signature. Kasia Kang Lead Flatwork Washer [facility] ITORY DEVELOPMENT MANAGER * Telephone Encounter - Eleno Valera - 07/23/2024 3:42 PM CST Forms/Letter Request Type of form/letter: OTHER: [employer] Regarding: Repairs/Replacements,Adjustments as needed to patient owned: Q6 [facility] Do we have the form/letter: Yes: desk sergeant in basket Who is the form from? [employer] Where did/will the form come from? form was faxed in When is form/letter needed by: [employer]PA How would you like the form/letter returned: Patient Notified form requests are processed in 5-7 business days:No Could we send this information to you in [place] or would you prefer to receive a phone call?: No preference Okay to leave a detailed message?: No at Other phone number: Eleno Valera Patient Table Assembler Metal [facility] ITORY DEVELOPMENT MANAGER documented in this encounter Plan of Treatment Upcoming Encounters Date Type Department Care Team (Late st Contact Info) Description 09/07/2024 8:30 AM CDT Virtual Visit [facility] Urology [address] 4th [place] [phone] Carlos Joyner MD [address] [place] [address] 853185 09/13/2024 11:00 AM CDT Office Visit [facility] [address] [place] [phone] [place] [address] [place], [place] 1797768 09/20/2024 11:00 AM CDT Office Visit [facility] Sleep [facility] [address] [place] [address] Sugey Mccoy, CONSULTING SENIOR PRACTICE DIRECTOR [address] [place], [place] 72[address] documented as of this encounter Visit Diagnoses Not on filedocumented in this encounter Care Teams Archives Specialist Relationship Specialty Start [place] [address] [place] [address] PCP - General 03/05/23 Carlos Joyner MD [address] [place] [address] Urology 12/09/19 Jadon Murray MD [facility] 2530 [facility] [address] [place] [address] Referring Physician Pediatric Surgery 12/09/19 Maru Villagomez, RN Registered Nurse 12/10/19 Ang Slade MD 420 [facility] [address] [place], [place] 987255 MD Urology 04/24/20 Carlos Joyner MD [address] [place] [address] 106785 Assigned Surgical Provider 12/24/20 Ang Slade MD 420 [facility] [address] [place], [place] 413085 MD Urology 12/18/22 Lakshmi Wilhelm PA-C [address] [place] [address] 319205 Physician Pelt Salter Urology 02/03/23 [place] [address] [place] [address] Assigned PCP 02/06/23 Alissa Perez PA-C [address] [place] [address] 831835 Physician Pelt Salter Surgery 09/04/23 Lakshmi Wilhelm PA-C [address] [place] [address] 899335 Physician Pelt Salter Urology 09/16/23 Aidee Valero PA-C [address] [place] [address] Assigned Musculoskeletal Provider 04/17/24 Tanisha Marlow [facility] [address] 03/30/24 documented as of this encounter
--- OUTSIDE RECORDS SUMMARY | 2024-08-03 23:20 | XMS_ITS | Encounter Summary ---
Author Organization [place] Address [address] [place] [address] Care Team Providers Care Scallop Cutter Machine Name Role Phone Carlos Joyner MD Unavailable [phone] Jadon Murray MD Unavailable [phone] Maru Villagomez RN Unavailable Unavailable Ang Slade MD Unavailable [phone] Carlos Joyner MD Unavailable [phone] Ang Slade MD Unavailable [phone] Lakshmi Wilhelm PA-C Unavailable [phone] Heladio Willoughby MD Primary Care Provider [phone] Heladio Willoughby MD Unavailable Alissa Perez PA-C Unavailable [phone] Lakshmi Wilhelm PA-C Unavailable [phone] Aidee Vlaero PA-C Unavailable [phone] Reason for Visit * Reason Onset Date Comments Appointment 03/09/2024 Encounter Details Date Type Department Care Team (Late st Contact Info) Description 03/09/2024 Telephone [facility] [place] [address] [facility] [address] 4th [place] [address] Unknown, Doctor, MD Appointment Social [...] Description 09/07/2024 8:30 AM CDT Virtual Visit [facility] U[facility] Clinic [address] [place] [address] Carlos Joyner MD [address] [place] [address] 09/13/2024 11:00 AM CDT Office Visit [facility] [address] [place] [phone] [place] [address] [place], [place] 3773468 09/20/2024 11:00 AM CDT Office Visit [facility] [address] [place] [address] Sugey Mccoy, PERFORMANCE REPORTER [facility] [address] [place] [address] [address] [place], [place] 256514 documented as of this encounter Visit Diagnoses Not on filedocumented in this encounter Care Teams Scallop Cutter Machine Relationship Specialty [place] [address] [place] [address] PCP - General 03/05/23 Carlos Joyner MD [address] [place] [address] 383365 Urology 12/09/19 Jadon Murray MD [facility] 2530 [facility] 550 [place] [address] Referring Physician Pediatric Surgery 12/09/19 Maru Villagomez, OTILIO Registered Nurse 12/10/19 Ang Slade MD [address] [place] [address] 394 [place], [place] 107845 Urology 04/24/20 Carlos Joyner MD [address] [place] [address] Assigned Surgical Provider 12/24/20 Ang Slade MD [address] [place] [address] Urology 12/18/22 Lakshmi Wilhelm PA-C [address] [place] [address] Physician Conditioner Tumbler Urology 02/03/23 [place] [address] [place] [address] Assigned PCP 02/06/23 Alissa Perez PA-C [address] [place] [address] Physician Conditioner Tumbler Surgery 09/04/23 Lakshmi Wilhelm PA-C [address] [place] [address] Physician Conditioner Tumbler Urology 09/16/23 Aidee Valero PA-C [address] [place] [address] 648455 Assigned Musculoskeletal Provider 04/17/24 Tanisha Marlow 4120 [facility] [address] 03/30/24 documented as of this encounter
--- OUTSIDE RECORDS SUMMARY | 2024-08-03 23:20 | XMS_ITS | Encounter Summary ---
Author Organization [place] Address [address] [place] [address]. [place] [address] Care Team Providers Care Log Hooker Name Role Phone Carlos Joyner MD Unavailable [phone] Jadon Murray MD Unavailable [phone] Maru Villagomez RN Unavailable Unavailable Ang Slade MD Unavailable [phone] Carlos Joyner MD Unavailable [phone] Ang Slade MD Unavailable [phone] Lakshmi Wilhelm PA-C Unavailable [phone] Heladio Willoughby MD Primary Care Provider [phone] Heladio Willoughby MD Unavailable Alissa Perez PA-C Unavailable [phone] Lakshmi Wilhelm PA-C Unavailable [phone] Aidee Valero PA-C Unavailable [phone] Encounter Details Date Type Department Care Team (Late st Contact Info) Description 05/05/2023 [facility] Medical Advice [facility] Clinic [address] 4th [place] [address] Rosita Velasco, RN Social History [...] Virtual Visit [facility] [address] [place] [address] Carlos Joyner MD [address] [place] [address] 09/13/2024 11:00 AM CDT Office Visit [facility] [address] [place] [address] [place] [address] [place], [place] 1742268 09/20/2024 11:00 AM CDT Office Visit [facility] [address] [place] [address] Sugey Mccoy, DROP FORGE HAND EVENT PLANNING MANAGER [address] [place] [address] [address] [place] [address] documented as of this encounter Visit Diagnoses Not on filedocumented in this encounter Care Teams Log Hooker Relationship Specialty Start [place] [address] [place] [address] PCP - General 03/05/23 Carlos Joyner MD [address] [place] [address] Urology 12/09/19 Jadon Murray MD [facility] 2530 [facility] [place] 550 [place] [address] Referring Physician Pediatric Surgery 12/09/19 Maru Villagomez, OTILIO Registered Nurse 12/10/19 Ang Slade MD [address] [address] Urology 04/24/20 Carlos Joyner MD [address] [place] [address] Assigned Surgical Provider 12/24/20 Ang Slade MD [address] [address] Urology 12/18/22 Lakshmi Wilhelm PA-C [address] [place] [address] 298865 Physician Video Arcade Manager Urology 02/03/23 [place] [address] [place] [address] Assigned PCP 02/06/23 Alissa Perez PA-C [address] [place] [address] 691795 Physician Video Arcade Manager Surgery 09/04/23 Lakshmi Wilhelm PA-C [address] [place] [address] 433075 Physician Video Arcade Manager Urology 09/16/23 Aidee Valero PA-C [address] [place] [address] 588425 Assigned Musculoskeletal Provider 04/17/24 Tanisha Marlow 4120 [facility] [address] 03/30/24 documented as of this encounter
--- OUTSIDE RECORDS SUMMARY | 2024-08-03 23:20 | XMS_ITS | Encounter Summary ---
Author Organization [place] Address [address] [place] [address]. [place] [address] Care Team Providers Care Shipping Receiving Clerk Name Role Phone Carlos Joyner MD Unavailable [phone] Jadon Murray MD Unavailable [phone] Maru Villagomez RN Unavailable Unavailable Ang Slade MD Unavailable [phone] Carlos Joyner MD Unavailable [phone] Ang Slade MD Unavailable [phone] Lakshmi Wilhelm-C Unavailable [phone] Heladio Willoughby MD Primary Care Provider [phone] Heladio Willoughby MD Unavailable Alissa Perez PA-C Unavailable [phone] Lakshmi Wilhelm-C Unavailable [phone] Aidee Valero PA-C Unavailable +[phone] Reason for Visit * Reason Onset Date Comments Forms 02/06/2024 [facility] ecial Education [employer]operative - Medication Authorization Form Encounter Details Date Type Department Care Team (Late st Contact Info) Description 02/06/2024 [facility] [address] [place] [address] [place] [address] [place] [address] Forms ([facility] Education 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 Social History Tobacco Use Types Packs/Day [...] Authorization Form Who is the form from? [facility] (if other please explain) Where did/will the form come from? form was sent via [employer] When is form/letter needed by: [facility] How would you like the form/letter returned: [employer] Printed forms and placed in provider's basket for review and signature Kasia Gutierrez Lead Campaign Consultant [facility] documented in this encounter Plan of Treatment Upcoming Encounters Date Type Department Care Team (Late st Contact Info) Description 09/07/2024 8:30 AM CDT Virtual Visit [facility] U[facility] Clinic [address] 4th [place] [address] Carlos Joyner MD [address] [place] [address] 09/13/2024 11:00 AM CDT Office Visit [facility] [address] [place] [address] [place] [address] [place], [place] 4378668 09/20/2024 11:00 AM CDT Office Visit [facility] [place] [address] [facility] [place] [address] Sugey Mccoy, COMPOUNDING PHARMACY TECHNICIAN[address] 091154 documented as of this encounter Visit Diagnoses Not on filedocumented in this encounter Care Teams Shipping Receiving Clerk Relationship Specialty Start [place] [address] [place] [address] PCP - General 03/05/23 Carlos Joyner MD [address] [place] [address] Urology 12/09/19 Jadon Murray MD [facility] [address] [place] [address] [address] Referring Physician Pediatric Surgery 12/09/19 Maru Villagomez, RN Registered Nurse 12/10/19 Ang Slade MD [address] [place] [address] MD Urology 04/24/20 Carlos Joyner MD [address] [place] [address] 449985 Assigned Surgical Provider 12/24/20 Ang Slade MD [address] [place] [address] Urology 12/18/22 Lakshmi Wilhelm PA-C [address] [place] [address] 578215 Physician Manufacturers Representative Urology 02/03/23 [place] [address] [place] [address] Assigned PCP 02/06/23 Alissa Perez PA-C [address] [place] [address] 902265 Physician Manufacturers Representative Surgery 09/04/23 Lakshmi Wilhelm PA-C [address] [place] [address] 435965 Physician Manufacturers Representative Urology 09/16/23 Aidee Valero PA-C [address] [place] [address] 399035 Assigned Musculoskeletal Provider 04/17/24 Tanisha Marlow [facility]120 [facility] [address] 03/30/24 documented as of this encounter
--- OUTSIDE RECORDS SUMMARY | 2024-08-03 23:20 | XMS_ITS | Clinical Summary ---
Author Organization [facility] Address [address] [place] [address] Care Team Providers Care Ring Sorter Name Role Phone Ignacia Duran MD Primary Care Provider [phone] Allergies Active Allergy Reactions Criticality Noted Date [...] recurrent major depressive d isorder 11/23/2018 S/P SPEECH LANG PATH THERAPIST shunt 04/29/2011 UTI (urinary tract infection) 04/24/2011 Paraplegia 02/21/2009 Spina bifida of dorsal region 02/21/2009 Resolved Problems Problem Noted Date Diagnosed Date Resolved Date Adjustment disorder with mix ed disturbance of emotions and conduct 07/04/2011 11/23/2018 Immunizations Immunization Administration Dates Next Due DTaP 01/18/2008,05/06/2005 [id number] (Pediarix) 05/27/2003,03/21/2003,0 2002 HIB PRP-T (ActHIB,Hiberix) 05/27/2003,03/21/2003 [...] on file Legal Sex Female 6:29 AM LIQUOR STORES AND AGENCIES SUPERVISOR Gender Identity Not on file Sexual Orientation [...] Comments Blood Pressure 123/80 07/12/2021 1:30 PM LIQUOR STORES AND AGENCIES SUPERVISOR Pulse 98 07/12/2021 1:30 PM LIQUOR STORES AND AGENCIES SUPERVISOR Temperature 36.9 C (98.5 F) 07/12/2021 1:30 PM LIQUOR STORES AND AGENCIES SUPERVISOR Respiratory Rate 18 07/03/2015 5:27 PM LIQUOR STORES AND AGENCIES SUPERVISOR Oxygen Saturation 98% 07/12/2021 1:30 PM LIQUOR STORES AND AGENCIES SUPERVISOR Inhaled Oxygen Concentration - - Weight 61.2 kg (135 lb) 07/03/2015 5:27 PM LIQUOR STORES AND AGENCIES SUPERVISOR Height - - Body Mass Index [...] age 11-21 Completed 06/17/2019, 01/16/[address] [facility] MEDICARE PART A HB ONLY MEDICARE PART B HB ONLY MEDICARE PB ONLY MEDICAID [id number] [place] [address] Advance Directives Documents on File Type Date Recorded Patient Clinical Biostatistics Director Expl anation Power of General Scrap Worker 06/24/2023 1:00 PM Care Teams Ring Sorter Relationship Specialty Start Date End Date Ignacia Duran MD PCP - General Pediatric 10/07/19
--- OUTSIDE RECORDS SUMMARY | 2024-08-03 23:20 | XMS_ITS | Clinical Summary ---
Author Organization [place] Address [address] [place] [address] Care Team Providers Care Life Insurance Underwriter Name Role Phone Carlos Joyner MD Unavailable [phone] Jadon Murray MD Unavailable [phone] Maru Villagomez RN Unavailable Unavailable Ang Slade MD Unavailable Carlos Joyner MD Unavailable [phone] Ang Slade MD Unavailable [phone] Lakshmi Wilhelm-C Unavailable Heladio Willoughby MD Primary Care Provider Heladio Willoughby MD Unavailable Alissa Perez PA-C Unavailable [phone] Lakshmi Wilhelm-C Unavailable Aidee Valero PA-C [...] 1 Refill(s), Maintenance, other Active Wound Dress[facility] ([facility] PADSIndications:P ressure ulcer [facility] Externally apply 1 each topically daily [...] 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 At : [facility], aplasia cutis of scalp (pinpoint), R knee contracture, clubbed feet bilaterally, microcephaly, kyphosis. Specialist involved: Adult Spina Bifida Clinic - looking into locations/referrals Adult neurosurgery team - not needed until age 27 (currently following with Dr. Rodgers of [facility]) Adult Urology team - Dr. Joyner of [facility] Adult Sleep Medicine - referral placed Adult Orthopaedics - [facility] Resolved Problems Problem Noted Date Diagnosed Date Resolved Date Acute kidney failure, unspecified 02/10/2020 03/05/2023 Ulcer, surgical 06/07/2011 07/22/2024 Encounters Date Type Department Care Team Description 07/27/2024 Telephone [facility] [place] [address] [place] [address] [phone] Carlos Joyner MD Prior Auth - Medication (COMPOUNDED NON-CONTROLLED SUBSTANCE (CMPD RX) - PHARMACY TO MIX COMPOUNDED MEDICATION--DENIED) 07/26/2024 Medical Correspondence [facility] Information Management [address] [place] [address] [address] [place] [address] Scan, Non-Provider 07/23/[address] [facility] [address] [place] [phone] Heladio Willoughby MD 07/22/2024 Telephone [facility] [address] [place] [address] Heladio Willoughby MD IUD 07/22/[address] [facility] [address] [place] [phone] Heladio Willoughby MD 07/22/2024 Telephone [facility] [address] [phone] Rosita Velasco RN Clinic Care Coordination - Follow-up (Med request) 07/21/2024 4:00 PM SKIN CARE TECHNICIAN Office Visit [facility] [address] [place] [phone] Heladio Willoughby MD Encounter for Medicare annual wellness exam (Primary Dx); Cervical cancer screening; Thoracic spina bifida, unspecified hydrocephalus presence (H); Chiari malformation type II (H); Paraplegia (H); S/P AUDIT DIRECTOR shunt; Wheelchair dependence; Morbid obesity (H); Horseshoe kidney; Bilateral nephrolithiasis; Recurrent cystitis; Neurogenic bladder; Neurogenic bowel; control counseling 07/21/2024 Travel 07/16/2024 Travel 07/09/2024 MyC Medical Advice [facility] [address] [phone] Hattie Wing RN 07/05/2024 Refill [facility] [address] [phone] Carlos Joyner MD Medication Refill 06/24/2024 Orders Only [facility] [address] [phone] Carlos Joyner MD Recurrent UTI (Primary Dx) 06/24/2024 Telephone [facility] [address] [address] Carlos Joyner MD Call Back (Previous message from [employer]) 06/23/2024 MyC Medical Advice [facility] [address] [phone] Carlos Joyner MD 06/22/2024 Telephone [facility] [address] [place] [address] Heladio Willoughby MD Orders 06/15/2024 MyC Medical Advice [facility] [address] [place] [address] Sarika Calhoun MA 06/11/2024 Travel from Last 3 Months Immunizations Name Administration Dates Next Due DTAP (<7y) 01/18/2008,05/06/2005 DTaP, Unspecified 01/16/2015 DTaP/HepB/IPV 05/27/2003,03/21/2003,2002 Flu, Unspecified 02/26/2016,02/21/2009, 4 G8w1-83 Novel Flu 03/18/2009 G8e1-29 Novel Flu P-free 03/30/2004,05/27/2003 HEPATITIS A (PEDS [...] than three times a week 07/16/2024 Attends Buddhism Services Not on file 07/16 Active Member of Clubs or Organizations Not on f ile 07/16/2024 Attends Club or Organization Meetings Not on antelmo e 07/16/2024 Marital Status Not on file 07/16/2024 PHQ-2 Answer Date Recorded PHQ-2 Score Incomplete 07/21/2024 [facility] - Occupational Stress [...] Comments Blood Pressure 132/73 07/21/2024 3:51 PM SKIN CARE TECHNICIAN Pulse 61 07/21/2024 3:44 PM SKIN CARE TECHNICIAN Temperature 36.6 C (97.9 F) 07/21/2024 3:44 PM SKIN CARE TECHNICIAN Respiratory Rate 18 07/21/2024 3:44 PM SKIN CARE TECHNICIAN Oxygen Saturation 99% 07/21/2024 3:44 PM SKIN CARE TECHNICIAN Inhaled Oxygen Concentration - - Weight 61.2 kg (135 lb) 03/30/2024 2:01 PM SKIN CARE TECHNICIAN Height 147.3 cm (4' 10) 03/30/2024 2:01 PM SKIN CARE TECHNICIAN Body Mass Index 28.22 03/30/2024 2:01 PM SKIN CARE TECHNICIAN Plan of Treatment Upcoming Encounters Date Type Department Care Team (Late st Contact Info) Description 09/07/2024 8:30 AM CDT Virtual Visit [facility] [address] 4th [place] [phone] Carlos Joyner MD [address] [place], [place] [address] 09/13/2024 11:00 AM CDT Office Visit [facility] [address] [place] [address] [place] [address] [place], [place] [phone] 09/20/2024 11:00 AM CDT Office Visit [facility] [address] [address] Sugey Mccoy APRN [facility] [address] [place] [address] [address] [place] [address] Health Maintenance Due Date Last [...] history exists Medical Devices Implanted Type Area Field Talent Qualification Specialist Device Identifier Shelf Expiration Date Model / Serial / Lot Stent Ureteral Percuflex Plus [id number] - [id number] Implanted:Qty: 1 on 11/12/2021 by Carlos Joyner MD at [facility] Stent Right: Abdomen [employer] [id number] 12/26/2022 [id number] Ureteral Catheter 5 Irish Implanted:Qty: 1 on 03/31/2023 by Elizabeth Jacobsen MD at [facility] Right: Ureter 02/02/2026 [id number] Description:5 polish Uretera l catheter used as a stent in right ureter 5 Irish Open Ended Catheter Implanted:Qty: 1 on 03/31/2023 by Elizabeth Jacobsen MD at [facility] Left: Ureter 02/19/2026 [id number] / [id number] Explanted Type Area Field Talent Qualification Specialist Device Identifier Shelf Expiration Date Model / Serial / Lot Stent Ureteral Percuflex Plus [id number] - [id number] Implanted:Qty: 1 on 05/10/2021 by Carlos Joyner MD at [facility] Explanted:Qty: 1 on 08/09/2021 by Jane Gomez MD at [facility] Stent Right: Urethra [employer] 06/14/2022 [id number] / [id number] Description:Ureter Stent Ureteral Percuflex Plus [id number] - [id number] Implanted:Qty: 1 on 05/10/2021 by Carlos Joyner MD at [facility] Explanted:Qty: 1 on 08/09/2021 by Jane Gomez MD at [facility] Stent Left: Urethra [employer] 07/25/2022 [id number] Stent Ureteral Percuflex Plus [id number] - [id number] Implanted:Qty: 1 on 08/09/2021 by Jane Gomez MD at [facility] Explanted:Qty: 1 on 11/12/2021 at [facility] Stent Right: Ureter [employer] 02/29/2024 [id number] Stent Ureteral Percuflex Plus [id number] - [id number] Implanted:Qty: 1 on 08/09/2021 by Jane Gomez MD at [facility] Explanted:Qty: 1 on 11/12/2021 at [facility] Stent Right: Ureter [employer] 02/29/2024 [id number] 5 Fr X 22cm Ureteral Stent Explanted:Qty: 1 on 02/07/2020 by Carlos Joyner MD at [facility] COOK 5 Fr X 22cm Ureteral Stent Explanted:Qty: 1 on 02/07/2020 by Carlos Joyner MD at [facility] COOK Procedures Procedure Name Priority Date/Time Associated Diagnosis Comments URINE CULTURE Routine 06/25/2024 9:14 AM SKIN CARE TECHNICIAN Recurrent UTI URINE MICROSCOPIC EXAM Routine 06/25/2024 9:14 AM SKIN CARE TECHNICIAN Recurrent UTI ROUTINE UA WITH MICROSCOPIC Routine 06/25/2024 9:14 AM SKIN CARE TECHNICIAN Recurrent UTI from Last 3 Months Results * (ABNORMAL) UA with Microscopic (06/25/2024 9:14 AM SKIN CARE TECHNICIAN) Color Urine Yellow Colorless, Straw, Light Yellow, Yellow 06/25/2024 9:19 AM [facility] Appearance Urine Cloudy(A) Clear 06/25/19 9:19 AM [facility] Glucose Urine Negative Negative mg/dL 06/25/2024 9:19 AM [facility] Bilirubin Urine Negative Negative 9:19 AM [facility] Ketones Urine Negative Negative mg/dL 06/25/2024 9:19 AM [facility] Specific [place] Urine 1.020 1.003 - 1.035 06/25/2024 9:19 AM [facility] Blood Urine Small(A) Negative 06/25/2024 9:19 AM [facility] pH Urine 6.0 5.0 - 7.0 06/25/2024 9:19 AM [facility] Protein Albumin Urine Negative Negative mg/dL 06/25/2024 9:19 AM [facility] Urobilinogen Urine 0.2 0.2, 1.0 E.U./dL 06/25/2024 9:19 AM [facility] Nitrite Urine Positive(A) Negative 06/25/2024 9:19 AM [facility] Leukocyte Esterase Urine Small(A) Negative 06/25/2024 9:19 AM [facility] Urine URINE SPECIMEN FROM URINARY CONDUIT / Unknown Non-blood Collection / Unknown 06/25/2024 9:14 AM SKIN CARE TECHNICIAN 06/25/2024 9:15 AM SKIN CARE TECHNICIAN Carlos Joyner MD LAB - URINE ORDERABLES Fin al Result LABORATORY [facility] [address] [facility] Lab (no room number, 1st floor of clinic) [place] [address], [facility] * (ABNORMAL) Urine Microscopic Exam (06/25/2024 9:14 AM SKIN CARE TECHNICIAN) Bacteria Urine Many(A) None Seen /HPF LINDA 06/25/2024 9:20 AM SKIN CARE TECHNICIAN LABORATORY RBC Urine 2-5(A) 0-2 /HPF /HPF LINDA 06/25/2024 9:20 AM SKIN CARE TECHNICIAN LABORATORY WBC Urine 10-25(A) 0-5 /HPF /HPF LINDA 06/25/2024 9:20 AM SKIN CARE TECHNICIAN LABORATORY Amorphous Crystals Urine Few(A) None Seen /HPF LINDA 06/25/2024 9:20 AM SKIN CARE TECHNICIAN [facility] LABORATORY Urine URINE SPECIMEN FROM URINARY CONDUIT / Unknown Non-blood Collection / Unknown 06/25/2024 9:14 AM SKIN CARE TECHNICIAN 06/25/2024 9:15 AM SKIN CARE TECHNICIAN Carlos Joyner MD LAB - URINE ORDERABLES Fin al Result LABORATORY [facility] [address] [facility] Lab (no room number, 1st floor of clinic) [place] [address], [facility] * (ABNORMAL) Urine Culture (06/25/2024 9:14 AM SKIN CARE TECHNICIAN) Culture >100,000 CFU/mL Staphylococcus epidermidis(A) LINDA 06/28/2024 6:49 AM SKIN CARE TECHNICIAN [facility] Culture 50,000-100,000 CFU/mL Staphylococcus epidermidis(A) 06/28/2024 6:49 AM SKIN CARE TECHNICIAN [facility] Urine URINE SPECIMEN OBTAINED VIA INDWELLING URINARY CATHETER / Unknown Non-blood Collection / Unknown 06/25/2024 9:14 AM SKIN CARE TECHNICIAN 06/25/2024 9:15 AM SKIN CARE TECHNICIAN Narrative Organism Antibiotic Method Susceptibility Staphylococcus [...] [address] [facility], [address] [place] [address], [facility] from Last 3 Months Insurance [place]ICAID [place] [facility] INDIVIDUAL [facility]DIVIDUAL [place] [facility] INDIVIDUAL [facility] [place]UAL [place] Advance Directives For more information, please contact: [phone] Documents on File Type Date Recorded Patient Shelf Stocker Expl anation Advance Directives and Living Will [...] continue PREVIOUSLY ORDERED code status Care Teams Life Insurance Underwriter Relationship Specialty [place] [address] [place] [address] PCP - General 03/05/23 Carlos Joyner MD [address] [place] [address] Urology 12/09/19 Jadon Murray MD [facility] [address] [place] [address] Referring Physician Pediatric Surgery 12/09/19 Maru Villagomez, OTILIO Registered Nurse 12/10/19 Ang Slade MD [address] [place] [address] [address] [place], [place] 464645 Urology 04/24/20 Carlos Joyner MD [address] [place] [address] Assigned Surgical Provider 12/24/20 Ang Slade MD [address] [place] [address] [address] [place] [address] Urology 12/18/22 Lakshmi Wilhelm PA-C [address] [place] [address] Physician Child Care Specialist Urology 02/03/23 [place] [address] [place] [address] Assigned PCP 02/06/23 Alissa Perez PA-C [address] [place] [address] Physician Child Care Specialist Surgery 09/04/23 Lakshmi Wilhelm PA-C [address] [place] [address] Physician Child Care Specialist Urology 09/16/23 Aidee Valero PA-C [address] [place] [address] Assigned Musculoskeletal Provider 04/17/24 Tanisha Marlow [address] [facility] [address] 03/30/24
[2024-08-03] MEDS: ACETAMINOPHEN 500 MG TABLET 1000 MG PO (23:21)
--- OUTSIDE RECORDS SUMMARY | 2024-08-03 23:21 | XMS_ITS | Encounter Summary ---
Author Organization [place] Address [address] [place] [address] Care Team Providers Care Actuarial Technician Name Role Phone Carlos Joyner MD Unavailable [phone] Jadon Murray MD Unavailable [phone] Maru Villagomez RN Unavailable Unavailable Ang Slade MD Unavailable [phone] Carlos Joyner MD Unavailable [phone] Ang Slade MD Unavailable [phone] Lakshmi Wilhelm PA-C Unavailable Heladio Willoughby MD Primary Care Provider [phone] Heladio Willoughby MD Unavailable Alissa Perez PA-C Unavailable [phone] Lakshmi Wilhelm PA-C Unavailable [phone] Aidee Valero PA-C Unavailable Reason for Visit * Reason Onset Date Comments Call Back 06/24/2024 Previous message from [employer] Encounter Details Date Type Department Care Team (Late st Contact Info) Description 06/24/2024 Telephone [facility] [address] [place] [address] Carlos Joyner MD [address] [place] [address] Call Back (Previous message from [employer]) Social History Tobacco Use Types Packs/Day Years [...] has an infection. RN sent antibiotics to [facility] pharmacy for pt. OTILIO Becker Fish Bin Tender- Urology [phone] ENGINEER * Telephone Encounter - Amari Mcconnell RN - 06/28/2024 8:37 AM CST RN returned call to Tanisha, pt's guardian, with urine culture results. If symptomatic, rec Macrobid 100mg BID x [address] Joyner. RN requested return call to confirm plan. OTILIO Becker Fish Bin Tender- Urology [phone] ENGINEER * Telephone Encounter - Kilo Perez - 06/24/2024 3:23 PM CFD ENGINEER [facility] Phone Message May a detailed message be left on voicemail: yes Reason for Call: Alison from patients facility is requesting a response from yesterday's [employer] message RUPA: Mary Joyner & Team, [facility] sent the below message regarding her urine. Do you think she should have a urinalysis done in case of infection? Thank you greatly for advising. From: Christie Avila < > Sent: Sunday, June 23, 2024 10:06 AM To: Tanisha Marlow < [email or web address]>; Nurse < > Subject: MS Good Morning [...] Avila RN, BSN, PHN, LSN Building Nurse [facility] Alison also reports the following updates for today: AM 220CC large amount of urine in brief. PM 380CC Yellow urine and sediment noted. Action Taken: Message routed to: [facility] Urology Travel Screening: Not Applicable Date of Service: ENGINEER * Addendum Note - Amari Mcconnell RN - 06/24/2024 3:23 PM CSTAddended by: AMARI MCCONNELL on: 06/29/2024 09:13 AM Modules accepted: Orders ENGINEER documented in this encounter Plan of Treatment Upcoming Encounters Date Type Department Care Team (Late st Contact Info) Description 09/07/2024 8:30 AM CDT Virtual Visit [facility] [address] [phone] Carlos Joyner MD [address] [place] [address] 9[address] 09/13/2024 11:00 AM CDT Office Visit [facility] [address] [place] [address] [place] [address] [place] [address] 09/20/2024 11:00 AM CDT Office Visit [facility] [address] [phone] Sugey Mccoy, ARTIST MODEL POT ROOM SUPERVISOR [address] [place] [address] documented as of this encounter Visit Diagnoses Diagnosis Recurrent UTI- Primary Urinary tract infection, site not specified documented in this encounter Care Teams Actuarial Technician Relationship Specialty Start [place] [address] [place] [address] PCP - General 03/05/23 Carlos Joyner MD [address] [place] [address] Urology 12/09/19 Jadon Murray MD [facility] [address] [facility] [address] [address] [place] [address] Referring Physician Pediatric Surgery 12/09/19 Maru Villagomez, RN Registered Nurse 12/10/19 Ang Slade MD [address] [place] [address] Urology 04/24/20 Carlos Joyner MD [address] [place] [address] Assigned Surgical Provider 12/24/20 Ang Slade MD [address] [address] Urology 12/18/22 Lakshmi Wilhelm PA-C [address] [place] [address] Physician Apple Checker Urology 02/03/23 [place] [address] [place] [address] Assigned PCP 02/06/23 Alissa Perez PA-C [address] [place] [address] Physician Apple Checker Surgery 09/04/23 Lakshmi Wilhelm PA-C [address] [place] [address] Physician Apple Checker Urology 09/16/23 Aidee Valero PA-C [address] [place] [address] Assigned Musculoskeletal Provider 04/17/24 Tanisha Marlow 4[address] [facility] [address] 03/30/24 documented as of this encounter
--- OUTSIDE RECORDS SUMMARY | 2024-08-03 23:21 | XMS_ITS | Encounter Summary ---
Author Organization [place] Address [address] [place] [address] Care Team Providers Care Electric Switch Tester Name Role Phone Carlos Joyner MD Unavailable [phone] Jadon Murray MD Unavailable [phone] Maru Villagomez RN Unavailable Unavailable Ignacia Duran MD Primary Care Provider Ang Slade MD Unavailable [phone] Carlos Joyner MD Unavailable [phone] Annalise Orta PA-C Unavailable [phone] Ang Slade MD Unavailable [phone] Lakshmi Wilhelm-C Unavailable [phone] Healdio Willoughby MD Primary Care Provider [phone] Heladio Willoughby MD Unavailable Alissa Perez PA-C Unavailable [phone] Lakshmi Wilhelm PA-C Unavailable [phone] Aidee Valero PA-C Unavailable [phone] Encounter Details Date Type Department Care Team (Late st Contact Info) Description 11/14/2021 [facility] [address] [place] [address] Analisa Palacio, RN Social History [...] Description 09/07/2024 8:30 AM CDT Virtual Visit [facility] [address] [place] [phone] Carlos Joyner MD [address] [place] [address] 832175 09/13/2024 11:00 AM CDT Office Visit [facility] [address] [place] [address] [place] [address] [place] [address] 09/20/2024 11:00 AM CDT Office Visit [facility] [address] [phone] Sugey Mccoy, BERRY PICKER MACHINE OPERATOR [address] [address] documented as of this encounter Visit Diagnoses Not on filedocumented in this encounter Additional Health Concerns Infection Onset Date Last Indicated Resolved Time MRSA Comment:Added from external infection. Pt has had Staph infections but never MRSA from Care everywhere chart review. Removing MRSA 9.14.23 06/17/2019 02/06/2023 9:41 AM C DT documented as of this encounter Care Teams Electric Switch Tester Relationship Specialty Start Date End Date Ignacia Duran MD PCP - General Pediatrics 01/20/20 03/04/23 [place] [address] [facility] [address] PCP - General 03/05/23 Carlos Joyner MD [address] [place] [address] Urology 12/09/19 Jadon Murray MD [facility] [address] [facility] [address] [place] [address] Referring Physician Pediatric Surgery 12/09/19 Maru Villagomez, RN Registered Nurse 12/10/19 Ang Slade MD [address] [address] Urology 04/24/20 Carlos Joyner MD [address] [place] [address] Assigned Surgical Provider 12/24/20 Annalise Orta PA-C [address] [place] [address] Assigned Cancer Care Provider 05/13/21 11/01/22 Ang Slade MD [address] [address] Urology 12/18/22 Lakshmi Wilhelm PA-C [address] [place] [address] Physician Agriscience Technology Instructor Urology 02/03/23 [place] [address] [place] [address] Assigned PCP 02/06/23 Alissa Perez PA-C [address] [place] [address] Physician Agriscience Technology Instructor Surgery 09/04/23 Lakshmi Wilhelm PA-C [address] [place] [address] Physician Agriscience Technology Instructor Urology 09/16/23 Aidee Valero PA-C [address] [place] [address] Assigned Musculoskeletal Provider 04/17/24 Tanisha Marlow [address] [facility] [address] 03/30/24 documented as of this encounter
--- OUTSIDE RECORDS SUMMARY | 2024-08-03 23:21 | XMS_ITS | Encounter Summary ---
Author Organization [facility] Address [address] [place] [address] Care Team Providers Care Osteology Teacher Name Role Phone Carlos Joyner MD Unavailable [phone] Jadon Murray MD Unavailable [phone] Maru Villagomez RN Unavailable Unavailable Ang Slade MD Unavailable [phone] Carlos Joyner MD Unavailable [phone] Ang Slade MD Unavailable [phone] Lakshmi Wilhelm-C Unavailable [phone] Heladio Willoughby MD Primary Care Provider [phone] Heladio Willoughby MD Unavailable Alissa Perez PA-C Unavailable [phone] Lakshmi Wilhelm-C Unavailable [phone] Aidee Valero PA-C Unavailable [phone] Reason for Referral * Consultation (Routine: Next available opening) - Referral NOT Required Specialty Diagnoses / Procedures Referred By Contabran t Referred To Contact Neurological Surgery Diagnoses Thoracic spina bifida, unspecified hydrocephalus presence (H) Chiari malformation type II (H) Paraplegia (H) S/P NEWS GATHERING TECHN[place] [address] [place] [address] Phone: tel: fax: Referral ID Status Reason Start Date Expiration Date V isits Requested Visits Authorized [id number] Referral NOT Required 07/22/2024 07/22/2025 1 1 Question Answer Reason for Referral: Other/General Neurosurgery My Clinical Question Is: Transitioning to adult neurosurgeon for hx of spina bifida, hydrocephalus, s/p NEWS GATHERING TECHNICIAN shunt. Pediatric neurosurgery team recommending Dr. Seven LEGER Patient Scheduling Instructions: [employer] will call you to coordinate your care as prescribed by your provider. If you don't hear from a hardware supplies sales representative within 2 business days, please call . Comments To help facilitate your referral to neurosurgery, please request the release of your outside records to assist the scheduling team. X-rays, CTs, MRIs, and other imaging must be pushed electronically to the [employer] system. Please be aware that coverage of these services is subject to the terms and limitations of your health insurance plan. Call member services at your health plan with any benefit or coverage questions. [employer] will call you to coordinate your care as prescribed by your provider. If you don't hear from a hardware supplies sales representative within 2 business days, please call . REPAIRER * Occupational Therapy (Routine: Next available opening) - Referral NOT Required Specialty Diagnoses / Procedures Referred By Charli sylvester Referred To Contact Occupational Therapy Diagnoses [place] [address] [place] [address] Phone: tel: fax: Referral ID Status Reason Start Date Expiration Date V isits Requested Visits Authorized [id number] Referral NOT Required 07/22/2024 07/22/2025 1 1 Question Answer Course of Action: Evaluation and Treatment Specialty Services: Per Associated Diagnosis Patient Scheduling Instructions: [employer] will call you to coordinate your care as prescribed by your provider. If you don't hear from a hardware supplies sales representative within 2 business days, please call . Comments Please be aware that coverage of these services is subject to the terms and limitations of your health insurance plan. Call member services at your health plan with any benefit or coverage questions. [employer] will call you to coordinate your care as prescribed by your provider. If you don't hear from a hardware supplies sales representative within 2 business days, please call . REPAIRER Reason for Visit * Reason Comments Physical wheel chair Forms for a new one Contraception Different options to regulate menstrual cycle Encounter Details Date Type Department Care Team (Late st Contact Info) Description 07/21/2024 4:00 PM DOLL REPAIRER Office Visit [facility] [address] [place] [address] [place] [address] Encounter for Medicare annual wellness exam (Primary Dx); Cervical cancer screening; Thoracic spina bifida, unspecified hydrocephalus presence (H); Chiari malformation type II (H); Paraplegia (H); S/P NEWS GATHERING TECHNICIAN shunt; Wheelchair dependence; Morbid obesity (H); Horseshoe [...] than three times a week 07/16/2024 Attends Congregation Services Not on file 07/16 Active Member of Clubs or Organizations Not on f ile 07/16/2024 Attends Club or Organization Meetings Not on antelmo e 07/16/2024 Marital Status Not on file 07/16/2024 PHQ-2 Answer Date Recorded PHQ-2 Score Incomplete 07/21/2024 [facility] of Occupat ional Health - Occupational Stress [...] in an overnight long term, or couch-surfing.) No 07/16/2024 Are you worried [...] Comments Blood Pressure 132/73 07/21/2024 3:51 PM DOLL REPAIRER Pulse 61 07/21/2024 3:44 PM DOLL REPAIRER Temperature 36.6 C (97.9 F) 07/21/2024 3:44 PM DOLL REPAIRER Respiratory Rate 18 07/21/2024 3:44 PM DOLL REPAIRER Oxygen Saturation 99% 07/21/2024 3:44 PM DOLL REPAIRER Inhaled Oxygen Concentration - - Weight - - Height - - Body Mass Index - - documented in this encounter Patient Instructions * Patient Instructions* Heladio Willoughby MD - 07/21/2024 4:00 PM DOLL REPAIRER Images from the original note were not [...] foods and aim for 100% of the WASH OIL PUMP OPERATOR HELPER (recommendeddaily allowance). Lifestyle Exercise at least 150 [...] . For help making a decision, visit: https://bit.ly/dm99018. Prostate cancer screening test: If you have [...] your health care provider. Copyright ?? 2022 [facility] [employer]. All rights reserved. Clinically reviewed by the [facility] Transitions Program. [employer] [id number] - REV 06/18. Preventing Falls: Care Instructions [...] Where can you learn more? Go to https://www.Mov[employer].net/patiented Enter G117 in the search box to learn more about Preventing Falls: Care Instructions. Current as of: December 24, 2023 Content Version: 14.3 ?? 2023 [employer]. Care instructions adapted under license by your healthcare professional. If you have questions about a medical condition or this instruction, always ask your healthcare professional. [employer] disclaims any warranty or liability for your [...] Where can you learn more? Go to https://www.Movinary.net/patiented Enter V684 in the search box to learn more about Bladder Training: Care Instructions. Current as of: September 23, 2023 Content Version: 14.3 ?? 2023 [employer]. Care instructions adapted under license by your healthcare professional. If you have questions about a medical condition or this instruction, always ask your healthcare professional. [employer] disclaims any warranty or liability for your use of this information. REPAIRER documented in this encounter Progress Notes * Heladio Willoughby MD - 07/21/2024 4:00 PM CST Images from the original note were not included. Preventive Care Visit [facility] Heladio Willoughby MD, Family Medicine [...] malformation type II (H) Paraplegia (H) S/P NEWS GATHERING TECHNICIAN shunt Was seeing PCP and Dr. Rodgers, [facility]. Planning to transition to adult care through [facility]. Per Dr. Rodgers, patient requires annual lipid, CMP, vitamin D. Ordered. Also recommending follow specialty teams for comprehensive care including adult SB care ([facility]aine Almaraz vs. [facility]); adult neurosurgery, order placed. In process [...] Current wheelchair in disrepair with recommendations by [facility] for new chair. Needs annual [...] amenable, would likely send in e-consult to burr bench operator to consider alternatives - high dose POP [...] month for LARC, pap Heladio Willoughby MD [facility] 07/22/2024 Yared Marina is a 23 year [...] Mail the wheelchair prescription to: Laina Escudero [address] [place] [address] Period control Laina is currently using depo [...] Rodgers is the spina bifida provider at [facility]. She suggested the sleep study. Did have DEXA scans done through [facility]. Dr. Caruso was PCP at [facility] and Remy CUSTOMER ACCOUNTS ADVISOR for spina bifida. Home Care Patient lives at her own home. Her aunt lives with her. She gets 24/7 hour cares by home care agency: Just transitioned to [facility] which is a s0cket. Started in May. Cares are happening consistently. Laina seems happier with this home care agency compared to last agency. Other services: Also established care with [facility]. Antoinette Calvin from [facility] for assessment and [...] in an overnight long term, or couch-surfing.) No Are you worried about [...] MD (Urology) Lakshmi Wilhelm PA-C as Physician Chargeback Analyst (Urology) Heladio Willoughby MD as Assigned PCP Alissa Perez PA-C as Physician Chargeback Analyst (Surgery) Lakshmi Wilhelm PA-C as Physician Chargeback Analyst (Urology) Aidee Del Valle PA-C as Assigned Musculoskeletal Provider The following health maintenance items are reviewed in [facility] and correct as of today: Health Maintenance [...] today Signed Electronically by: Heladio Willoughby MD REPAIRER documented in this encounter Plan of Treatment Upcoming Encounters Date Type Department Care Team (Late st Contact Info) Description 09/07/2024 8:30 AM CDT Virtual Visit [facility] [address] [place] [address] Carlos Joyner MD [address] [place] [address] 09/13/2024 11:00 AM CDT Office Visit [address] [address] [place] [address] [place] [address] 09/20/2024 11:00 AM CDT Office Visit [facility] [address] [place] [address] Sugey Mccoy, AUTOMATIC COIN MACHINE MECHANIC [facility] [address] [place] [address] Scheduled Orders Name Type Priority Associated [...] Expected: 07/22/2024 (Approximate), Expires: 07/22/2025 Adult Neurosurgery Pool Technician Referral Referral Routine: Next available opening Thoracic spina bifida, unspecified hydrocephalus presence (H) Chiari malformation type II (H) Paraplegia (H) S/P NEWS GATHERING TECHNICIAN shunt Expected: 07/22/2024 (Approximate), Expires: 07/22/2025 documented as of this encounter Visit Diagnoses Diagnosis Encounter for Medicare annual wellness exam- Primary Routine general medical examination at a health care facility Cervical cancer screening Screening for malignant neoplasm of the cervix Thoracic spina bifida, unspecified hydrocephalus presence (H) Chiari malformation type II (H) Spina bifida with hydrocephalus, unspecified region Paraplegia (H) Paraplegia S/P NEWS GATHERING TECHNICIAN shunt 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 dependence Morbid obesity (H) Morbid obesity 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 Bilateral nephrolithiasis Recurrent cystitis Cystitis, unspecified Neurogenic bladder Neurogenic bladder, NOS Neurogenic bowel control counseling General counseling for initiation of other contraceptive measures documented in this encounter Care Teams Osteology Teacher Relationship Specialty Start [place] [address] [place] [address] PCP - General 03/05/23 Carlos Joyner MD [address] [place] [address] Urology 12/09/19 Jadon Murray MD [facility] [address] [facility] [address] [place], [place] [phone] Referring Physician Pediatric Surgery 12/09/19 Maru Villagomez, RN Registered Nurse 12/10/19 Ang Slade MD [address] [place] [address] 449215 Urology 04/24/20 Carlos Joyner MD [address] [place] [address] [id number] Assigned Surgical Provider 12/24/20 Ang Slade MD [address] [place] [address] Urology 12/18/22 Lakshmi Wilhelm PA-C [address] [place] [address]15 Physician Chargeback Analyst Urology 02/03/23 [place] [address] [place] [address] Assigned PCP 02/06/23 Alissa Perez PA-C [address] [place] [address] Physician Chargeback Analyst Surgery 09/04/23 Lakshmi Wilhelm PA-C [address] [place] [address]1995 Physician Chargeback Analyst Urology 09/16/23 Aidee Valero PA-C [address] [place] [address] Assigned Musculoskeletal Provider 04/17/24 Tanisha Marlow [address] [facility] [address] 03/30/24 documented as of this encounter
--- OUTSIDE RECORDS SUMMARY | 2024-08-03 23:21 | XMS_ITS | Encounter Summary ---
Author Organization [facility] Address [address] [place] [address] Care Team Providers Care Mail Machine Operator Name Role Phone Carlos Joyner MD Unavailable [phone] Jadon Murray MD Unavailable [phone] Maru Villagomez RN Unavailable Unavailable Ignacia Duran MD Primary Care Provider Ang Slade MD Unavailable [phone] Carlos Joyner MD Unavailable [phone] Annalise Orta PA-C Unavailable [phone] Ang Slade MD Unavailable [phone] Lakshmi Wilhelm-C Unavailable [phone] Heladio Willoughby MD Primary Care Provider [phone] Heladio Willoughby MD Unavailable Alissa Perez PA-C Unavailable [phone] Lakshmi Wilhelm PA-C Unavailable [phone] Aidee Valero PA-C Unavailable [phone] Encounter Details Date Type Department Care Team (Late st Contact Info) Description 11/07/2021 [facility] [address] [place] [address] Analisa Palacio, RN Social History [...] Virtual Visit [facility] [address] [place] [phone] Carlos Joyner MD [address] [place] [address] 847145 09/13/2024 11:00 AM CDT Office Visit [facility] [address] [place] [address] [place] [address] [place] [address] 09/20/2024 11:00 AM CDT Office Visit [facility] [address] [phone] Sugey Mccoy, TRAVERSE ROD ASSEMBLER [address] [id number] documented as of this encounter Visit Diagnoses Not on filedocumented in this encounter Additional Health Concerns Infection Onset Date Last Indicated Resolved Time MRSA Comment:Added from external infection. Pt has had Staph infections but never MRSA from Care everywhere chart review. Removing MRSA 9.14.23 06/17/2019 02/06/2023 9:41 AM C DT documented as of this encounter Care Teams Mail Machine Operator Relationship Specialty Start Date End Date Ignacia Duran MD PCP - General Pediatrics 01/20/20 03/04/23 [place] [address] [facility] [place] [address] PCP - General 03/05/23 Carlos Joyner MD [address] [place] [address] Urology 12/09/19 Jadon Murray MD [facility] [address] [facility] [address] [place] [address] Referring Physician Pediatric Surgery 12/09/19 Maru Villagomez, RN Registered Nurse 12/10/19 Ang Slade MD [address] [id number] Urology 04/24/20 Carlos Joyner MD [address] [place] [address] Assigned Surgical Provider 12/24/20 Annalise Orta PA-C [address] [place] [address] Assigned Cancer Care Provider 05/13/21 11/01/22 Ang Slade MD [address] [address] Urology 12/18/22 Lakshmi Wilhelm PA-C [address] [place] [address] Physician Wet Press Tender Urology 02/03/23 [place] [address] [place] [address] Assigned PCP 02/06/23 Alissa Perez PA-C [address] [place] [address]81 Physician Wet Press Tender Surgery 09/04/23 Lakshmi Wilhelm PA-C [address] [place] [address]877 Physician Wet Press Tender Urology 09/16/23 Aidee Valero PA-C [address] [place] [address] Assigned Musculoskeletal Provider 04/17/24 Tanisha Mralow 4[address] [facility] [address] 03/30/24 documented as of this encounter
--- OUTSIDE RECORDS SUMMARY | 2024-08-03 23:21 | XMS_ITS | Encounter Summary ---
Author Organization [facility] Address [address] [place] [address] Care Team Providers Care Photo Stylist Name Role Phone Carlos Joyner MD Unavailable [phone] Jadon Murray MD Unavailable [phone] Maru Villagomez RN Unavailable Unavailable Ang Slade MD Unavailable [phone] Carlos Joyner MD Unavailable [phone] Ang Slade MD Unavailable [phone] Lakshmi Wilhelm-C Unavailable [phone] Heladio Willoughby MD Primary Care Provider [phone] Heladio Willoughby MD Unavailable Alissa Perez PA-C Unavailable [phone] Lakshmi Wilhelm-C Unavailable [phone] Aidee Valero PA-C Unavailable [phone] Encounter Details Date Type Department Care Team [...] than three times a week 07/16/2024 Attends Islam Services Not on file 02/21 /2025 Active Member of Clubs or Organizations Not on f ile 07/16/2024 Attends Club or Organization Meetings Not on antemlo e 07/16/2024 Marital Status Not on file 07/16/2024 PHQ-2 Answer Date Recorded PHQ-2 Score 0 06/24/2023 [facility] [place] of Occupat ional Health - Occupational Stress [...] AM CDT Virtual Visit [facility] [place] [address] [facility] 4th [place] [phone] Carlos Joyner MD [address] [place] [address] 09/13/2024 11:00 AM CDT Office Visit [facility] [address] [place] [phone] [place] [address] [place], [place] [phone] 09/20/2024 11:00 AM CDT Office Visit [facility] Sleep [address] [place] [phone] Sugey Mccoy, DOPE FIRER [address] [place], [place] [address] documented as of this encounter Visit Diagnoses Not on filedocumented in this encounter Care Teams Photo Stylist Relationship Specialty Start Date End [place] [id number] [place] [address] [id number] PCP - General 03/05/23 Carlos Joyner MD [address] [place] [address] Urology 12/09/19 Jadon Murray MD [facility] [address] [facility] [address] [place] [address] Referring Physician Pediatric Surgery 12/09/19 Maru Villagomez, OTILIO Registered Nurse 12/10/19 Ang Slade MD [address] [place] [address] [address] [place], [place] [address] Urology 04/24/20 Carlos Joyner MD [address] [place] [address] 317165 Assigned Surgical Provider 12/24/20 Ang Slade MD [address] [place] [address] Urology 12/18/22 Lakshmi Wilhelm PA-C [address] [place] [address] 656905 Physician Lens Engraver Urology 02/03/23 [place] [address] [place] [address] Assigned PCP 02/06/23 Alissa Preez PA-C [address] [place] [address] 317595 Physician Lens Engraver Surgery 09/04/23 Lakshmi Wilhelm PA-C [address] [place] [address] Physician Lens Engraver Urology 09/16/23 Aidee Valero PA-C [address] [place] [address] [phone] Assigned Musculoskeletal Provider 04/17/24 Tanisha Marlow [address] [facility] [address] 03/30/24 documented as of this encounter
--- OUTSIDE RECORDS SUMMARY | 2024-08-03 23:21 | XMS_ITS | Encounter Summary ---
Author Organization [facility] Address [address] [place] [address] Care Team Providers Care Tilting Head Band Sawyer Name Role Phone Carlos Joyner MD Unavailable [phone] Jadon Murray MD Unavailable [phone] Maru Villagomez RN Unavailable Unavailable Ang Slade MD Unavailable [phone] Carlos Joyner MD Unavailable [phone] Ang Slade MD Unavailable [phone] Lakshmi Wilhelm-C Unavailable [phone] Heladio Willoughby MD Primary Care Provider [phone] Heladio Willoughby MD Unavailable Alissa Perez PA-C Unavailable [phone] Lakshmi Wilhelm-C Unavailable Aidee Valero PA-C Unavailable [phone] Encounter Details Date Type Department Care Team (Late st Contact Info) Description 06/24/2024 [facility] [address] 4th [place] [address] Carlos Joyner MD [address] [place] [address] Recurrent UTI (Primary Dx) Social History [...] Hattie Wing RN, BSN Urology Triage Nurse N MANAGER documented in this encounter Plan of Treatment Upcoming Encounters Date Type Department Care Team (Late st Contact Info) Description 09/07/2024 8:30 AM CDT Virtual Visit [facility] [place] [address] [facility] 4th [place] [phone] Carlos Joyner MD 909 [place] [address] 09/13/2024 11:00 AM CDT Office Visit [facility] [address] [place] [address] [place] [address] [place] [address] 09/20/2024 11:00 AM CDT Office Visit [facility] [address] [place] [phone] Sugey Mccoy APRN [facility] [address] [place] [address] documented as of this encounter Results * (ABNORMAL) Urine Culture (06/25/2024 9:14 AM SALON MANAGER) Pathologist [facility] Culture >100,000 CFU/mL Staphylococcus epidermidis(A) LINDA 06/28/2024 6:49 AM SALON MANAGER [facility] Culture 50,000-100,000 CFU/mL Staphylococcus epidermidis(A) 06/28/2024 6:49 AM SALON MANAGER [facility] Urine URINE SPECIMEN OBTAINED VIA INDWELLING URINARY CATHETER / Unknown Non-blood Collection / Unknown 06/25/2024 9:14 AM SALON MANAGER 06/25/2024 9:15 AM SALON MANAGER Narrative Organism Antibiotic Method Susceptibility Staphylococcus [...] ORDERA BLES Final Result [facility] Inf. Diseases Diag. Lab [address] [facility], [address] [place] [id number] * (ABNORMAL) UA with Microscopic (06/25/2024 9:14 AM SALON MANAGER) Color Urine Yellow Colorless, Straw, Light Yellow, Yellow 06/25/2024 9:19 AM SALON MANAGER RM LABORATORY Appearance Urine Cloudy(A) Clear 06/25/19 9:19 AM SALON MANAGER RM LABORATORY Glucose Urine Negative Negative mg/dL 06/25/2024 9:19 AM SALON MANAGER RM LABORATORY Bilirubin Urine Negative Negative 9:19 AM SALON MANAGER RM LABORATORY Ketones Urine Negative Negative mg/dL 06/25/2024 9:19 AM SALON MANAGER RM LABORATORY Specific Barton Urine 1.020 1.003 - 1.035 06/25/2024 9:19 AM SALON MANAGER LABORATORY Blood Urine Small(A) Negative 06/25/2024 9:19 AM [facility] pH Urine 6.0 5.0 - 7.0 06/25/2024 9:19 AM [facility] Protein Albumin Urine Negative Negative mg/dL 06/25/2024 9:19 AM SALON MANAGER LABORATORY Urobilinogen Urine 0.2 0.2, 1.0 E.U./dL 06/25/2024 9:19 AM [facility] Nitrite Urine Positive(A) Negative 06/25/2024 9:19 AM SALON MANAGER LABORATORY Leukocyte Esterase Urine Small(A) Negative 06/25/2024 9:19 AM [facility] Urine URINE SPECIMEN FROM URINARY CONDUIT / Unknown Non-blood Collection / Unknown 06/25/2024 9:14 AM SALON MANAGER 06/25/2024 9:15 AM SALON MANAGER Carlos Joyner MD LAB - URINE ORDERABLES Fin al Result LABORATORY [facility] [address] [facility] (no room number, 1st floor of clinic) [place] [address], [facility] [[email or web address]] documented in this encounter Visit Diagnoses Diagnosis Recurrent UTI- Primary Urinary tract infection, site not specified documented in this encounter Care Teams Tilting Head Band Sawyer Relationship Specialty Start [place] [address] [place] [address] PCP - General 03/05/23 Carlos Joyner MD 9 [place], [place] 432955 Urology 12/09/19 Jadon Murray MD [facility] [address] [address] Referring Physician Pediatric Surgery 12/09/19 Maru Villagomez, RN Registered Nurse 12/10/19 Ang Slade MD [address] 707295 Urology 04/24/20 Carlos Joyner MD [address] [place] [address] 123305 Assigned Surgical Provider 12/24/20 Ang Slade MD [address] 064565 Urology 12/18/22 Lakshmi Wilhelm PA-C [address] [place] [address] 953165 Physician Party Director Urology 02/03/23 [place] [address] [place] [address] Assigned PCP 02/06/23 Alissa Perez PA-C [address] [place] [address] 014415 Physician Party Director Surgery 09/04/23 Lakshmi Wilhelm PA-C [address] [place] [address] Physician Party Director Urology 09/16/23 Aidee Valero PA-C [address] [place] [address] 607865 Assigned Musculoskeletal Provider 04/17/24 Tanisha Marlow 4120 [facility] [address] 03/30/24 documented as of this encounter
--- OUTSIDE RECORDS SUMMARY | 2024-08-03 23:21 | XMS_ITS | Encounter Summary ---
Author Organization [place] [facility] Address [address] [place] [address] Care Team Providers Care Wiener Packer Name Role Phone Carlos Joyner MD Unavailable [phone] Jadon Murray MD Unavailable [phone] Maru Villagomez RN Unavailable Unavailable Ignacia Duran MD Primary Care Provider [phone] Ang Slade MD Unavailable [phone] Carlos Joyner MD Unavailable [phone] Annalise Orta PA-C Unavailable [phone] Ang Slade MD Unavailable Lakshmi Wilhelm-C Unavailable [phone] Heladio Willoughby MD Primary Care Provider Heladio Willoughby MD Unavailable Alissa Perez PA-C Unavailable [phone] Lakshmi Wilhelm PA-C Unavailable [phone] Aidee Valero PA-C Unavailable [phone] Reason for Visit * Reason Onset Date Comments Orders 01/01/2022 Syringes - 35 an d 60 ml requested Encounter Details Date Type Department Care Team (Late st Contact Info) Description 01/01/2022 Telephone [facility] Urology Clinic [address] 4th [place] [address] Carlos Joyner MD [address] [place] [address] Orders (Syringes - 35 and 60 ml [...] order to [facility] at [phone]. Thank you. Action Taken: Other: Urology Travel Screening: Not Applicable documented in this encounter Plan of Treatment Upcoming Encounters Date Type Department Care Team (Late st Contact Info) Description 09/07/2024 8:30 AM CDT Virtual Visit [facility] Urology Clinic [address] 4th [place] [phone] Carlos Joyner MD [address] [place] [address] 782905 09/13/2024 11:00 AM CDT Office Visit [facility] [address] [place] [phone] [place] [address] [place], [place] 6223668 09/20/2024 11:00 AM CDT Office Visit [facility] Center [address] [address] Sugey Mccoy APRN [address] 090634 documented as of this encounter Visit Diagnoses Not on filedocumented in this encounter Additional Health Concerns Infection Onset Date Last Indicated Resolved Time MRSA Comment:Added from external infection. Pt has had Staph infections but never MRSA from Care everywhere chart review. Removing MRSA 02.06.23 06/17/2019 02/06/2023 9:41 AM C DT documented as of this encounter Care Teams Wiener Packer Relationship Specialty Start Date End Date Ignacia Duran MD PCP - General Pediatrics 01/20/20 03/04/23 [place] [address] [place] [address] PCP - General 03/05/23 Carlos Joyner MD [address] [place] [address] Urology 12/09/19 Jadon Murray MD [facility] 2530 [facility] [address] [address] Referring Physician Pediatric Surgery 12/09/19 Maru Villagomez, RN Registered Nurse 12/10/19 Ang Slade MD [address] [place] [address] Urology 04/24/20 Carlos Joyner MD [address] [place] [address] Assigned Surgical Provider 12/24/20 Annalise Orta PA-C 5200 [place] [address] Assigned Cancer Care Provider 05/13/21 11/01/22 Ang Salde MD [address] [place] [address] Urology 12/18/22 Lakshmi Wilhelm PA-C [address] [place] [address] Physician Sander Wooden Pencils Urology 02/03/23 [place] [address] [place] [address] Assigned PCP 02/06/23 Alissa Perez PA-C [address] [place] [address] Physician Sander Wooden Pencils Surgery 09/04/23 Lakshmi Wilhelm PA-C [address] [place] [address] 538685 Physician Sander Wooden Pencils Urology 09/16/23 Aidee Valero PA-C [address] [place] [address] 413615 Assigned Musculoskeletal Provider 04/17/24 Tanisha Marlow 4120 [facility] [address] 03/30/24 documented as of this encounter
--- OUTSIDE RECORDS SUMMARY | 2024-08-03 23:21 | XMS_ITS | Encounter Summary ---
Author Organization [facility] Address [address] [place] [address]. [place] [address] Care Team Providers Care Composition Tile Layer Name Role Phone Carlos Joyner MD Unavailable [phone] Jadon Murray MD Unavailable [phone] Maru Villagomez RN Unavailable Unavailable Ang Slade MD Unavailable [phone] Carlos Joyner MD Unavailable [phone] Ang Slade MD Unavailable [phone] Lakshmi Wilhelm-C Unavailable [phone] Heladio Willoughby MD Primary Care Provider [phone] Heladio Willoughby MD Unavailable Alissa Perez PA-C Unavailable [phone] Lakshmi Wilhelm PA-C Unavailable [phone] Aidee Valero PA-C Unavailable [phone] Encounter Details Date Type Department Care Team (Late st Contact Info) Description 07/22/2024 Telephone [facility] [address] [place] [address] [place] [address] [place] [address] Social History Tobacco Use Types [...] than three times a week 07/16/2024 Attends Syn[employer] Services Not on file 07/16 Active Member of Clubs or Organizations Not on f ile 07/16/2024 Attends Club or Organization Meetings Not on antelmo e 07/16/2024 Marital Status Not on file 07/16/2024 PHQ-2 Answer Date Recorded PHQ-2 Score Incomplete 07/21/2024 [facility] [place] of Occupat ional Health - Occupational Stress [...] building, in an overnight long-term, or couch-surfing.) No 07/16/2024 Are you worried [...] 2:51 PM CST Faxed. Kasia Kang Lead Shampoo Person [facility] WARE LEAD * Telephone Encounter - Heladio Willoughby MD - 07/26/2024 2:21 PM CST Provided paper prescription for electric wheelchair with seating assessment. Please fax/mail (to address listed in last office visit on 07/21/24 (under HPI)) as appropriate. Thanks, Heladio Elder. [facility] WARE LEAD * Telephone Encounter - Mercy Feliz, RN - 07/22/2024 3:30 PM SOFTWARE LEAD Called guardian to clarify questions below. 1) [...] would like this faxed to her at [phone]. 4) Tanisha states that lab staff could not find vein for 5 min. Tried in L arm and L hand. No luck. Advised to go to [facility] for draw. Pt will got to [facility] on Friday to get blood drawn. Routing to Dr. Leija. Please please order for script and send via fax to yasemin manleyan. YOLA Salinas, RN [facility] 07/22/2024 at 4:09 PM WARE LEAD * Telephone Encounter - Heladio Willoughby MD - 07/22/2024 2:48 PM CST [place] Nurse Triage, Just saw this patient yesterday. [...] recommended that she see Dr. Khanna with [facility] Neurosurgery. She was interested in alternative BC [...] not, I can send in e-consult to grease remover for alternative consideration for menstrual suppression. I [...] can place the referral. Heladio Willoughby MD [facility] 07/22/2024 WARE LEAD documented in this encounter Plan of Treatment Upcoming Encounters Date Type Department Care Team (Late st Contact Info) Description 09/07/2024 8:30 AM CDT Virtual Visit [facility] Urology Clinic [address]th [place] [address] Carlos Joyner MD [address] [place] [address] 895985 09/13/2024 11:00 AM CDT Office Visit [facility] [address] [place] [address] [place] [address] [place], [place] 8341968 09/20/2024 11:00 AM CDT Office Visit [facility] [address] [phone] Sugey Mccoy, NESTOR [address] [place] [address] documented as of this encounter Visit Diagnoses Diagnosis Paraplegia (H)- Primary Paraplegia Thoracic spina bifida, unspecified hydrocephalus presence (H) Wheelchair dependence documented in this encounter Care Teams Composition Tile Layer Relationship Specialty Start [place] [address] [place] [address] PCP - General 03/05/23 Carlos Joyner MD [address] [place] [address] Urology 12/09/19 Jadon Murray MD [facility] [address] [address] Referring Physician Pediatric Surgery 12/09/19 Maru Villagomez, RN Registered Nurse 12/10/19 Ang Slade MD [address] [place] [address] 986225 Urology 04/24/20 Carlos Joyner MD [address] [place] [address] Assigned Surgical Provider 12/24/20 Ang Slade MD [address] [place] [address] Urology 12/18/22 Lakshmi Wlihelm PA-C [address] [place] [address] Physician Mangle Feeder Urology 02/03/23 [place] [address] [place] [address] Assigned PCP 02/06/23 Alissa Perez PA-C [address] [place] [address] 558375 Physician Mangle Feeder Surgery 09/04/23 Lakshmi Wilhelm PA-C 909 [place], [place] 93340455 Physician Mangle Feeder Urology 09/16/23 Aidee Valero PA-C [address] [place] [address] [id number] Assigned Musculoskeletal Provider 04/17/24 Tanisha Marlow 4120 [facility] [id number] 03/30/24 documented as of this encounter
--- OUTSIDE RECORDS SUMMARY | 2024-08-03 23:21 | XMS_ITS | Encounter Summary ---
Author Organization [facility] Address [address] [place] [address] Care Team Providers Care Log Scaler Name Role Phone Carlos Joyner MD Unavailable [phone] Jadon Murray MD Unavailable [phone] Maru Villagomez RN Unavailable Unavailable Ang Slade MD Unavailable [phone] Carlos Joyner MD Unavailable [phone] Ang Slade MD Unavailable [phone] Lakshmi Wilhelm-C Unavailable [phone] Heladio Willoughby MD Primary Care Provider [phone] Heladio Willoughby MD Unavailable Alissa Perez PA-C Unavailable [phone] Lakshmi Wilhelm-C Unavailable [phone] Aidee Valero PA-C Unavailable [phone] Encounter Details Date Type Department Care Team (Late st Contact Info) Description 09/08/2023 [facility] Advice [address] [address] Bhavna Ferris Social History Tobacco [...] CDT Virtual Visit [facility] Clinic [address] [place] [address] Carlos Joyner MD [address] [place] [address] 09/13/2024 11:00 AM CDT Office Visit [facility] [address] [place] [address] [place] [address] [place], [place] 7001768 09/20/2024 11:00 AM CDT Office Visit [facility] [address] [place] [address] Sugey Mccoy, PATIENT SCHEDULING MANAGER SAP SENIOR DEVELOPER [address] [place] [address] [address] [place] [address] documented as of this encounter Visit Diagnoses Not on filedocumented in this encounter Care Teams Log Scaler Relationship Specialty [place] [address] [place] [address] PCP - General 03/05/23 Carlos Joyner MD [address] [place] [address] Urology 12/09/19 Jadon Murray MD [facility] 2530 [facility] [address] [place] [address] Referring Physician Pediatric Surgery 12/09/19 Maru Villagomez, OTILIO Registered Nurse 12/10/19 Ang Slade MD [address] [address] Urology 04/24/20 Carlos Joyner MD [address] [place] [address] Assigned Surgical Provider 12/24/20 Ang Slade MD [address] [address] Urology 12/18/22 Lakshmi Wilhelm PA-C [address] [place] [address] 727555 Physician Flatbed Company Driver Urology 02/03/23 [place] [address] [place] [address] Assigned PCP 02/06/23 Alissa Perez PA-C [address] [place] [address] 997655 Physician Flatbed Company Driver Surgery 09/04/23 Laksmhi Wilhelm PA-C [address] [place] [address] 669305 Physician Flatbed Company Driver Urology 09/16/23 Aidee Valero PA-C [address] [place] [address] 811775 Assigned Musculoskeletal Provider 04/17/24 Tanisha Marlow 4120 [facility] [address] 03/30/24 documented as of this encounter
--- OUTSIDE RECORDS SUMMARY | 2024-08-03 23:21 | XMS_ITS | Encounter Summary ---
Author Organization [facility] Address [address] [place] [address]. [place] [address] Care Team Providers Care Direct Mail Clerk Name Role Phone Carlos Joyner MD Unavailable [phone] Jadon Murray MD Unavailable [phone] Maru Villagomez RN Unavailable Unavailable Ang Slade MD Unavailable [phone] Carlos Joyner MD Unavailable [phone] Ang Slade MD Unavailable [phone] Lakshmi Wilhelm PA-C Unavailable [phone] Heladio Willoughby MD Primary Care Provider [phone] Heladio Willoughby MD Unavailable Alissa Perez PA-C Unavailable [phone] Lakshmi Wilhelm PA-C Unavailable [phone] Aidee Valero PA-C Unavailable [phone] Encounter Details Date Type Department Care Team (Late st Contact Info) Description 04/08/2023 [facility] [address] 4th [place] [address] Rosita Velasco, RN Social History [...] in an overnight usp, or couch-surfing.) Yes 04/11/2023 Are you worried [...] Visit [facility] [address] [place] [address] Carlos Joyner MD [address] [place] [address] 09/13/2024 11:00 AM CDT Office Visit [facility] [address] [place] [address] [place] [address] [place], [place] 8361768 09/20/2024 11:00 AM CDT Office Visit [facility] [address] [place] [address] Sugey Mccoy, MIDWIFE PRACTITIONER FILE CLERK [address] [place] [address] [address] [place] [address] documented as of this encounter Visit Diagnoses Not on filedocumented in this encounter Care Teams Direct Mail Clerk Relationship Specialty [place] [address] [place] [address] PCP - General 03/05/23 Carlos Joyner MD [address] [place] [address] Urology 12/09/19 Jadon Murray MD [facility] 2530 [facility] [address] [place] [address] Referring Physician Pediatric Surgery 12/09/19 Maru Villagomez, OTILIO Registered Nurse 12/10/19 Ang Slade MD [address] [address] Urology 04/24/20 Carlos Joyner MD [address] [place] [address] Assigned Surgical Provider 12/24/20 Ang Slade MD [address] [address] Urology 12/18/22 Lakshmi Wilhelm PA-C [address] [place] [address] 112625 Physician Contact Lens Inspector Urology 02/03/23 [place] [address] [place] [address] Assigned PCP 02/06/23 Alissa Perez PA-C [address] [place] [address] 441465 Physician Contact Lens Inspector Surgery 09/04/23 Lakshmi Wilhelm PA-C [address] [place] [address] 696885 Physician Contact Lens Inspector Urology 09/16/23 Aiede Valero PA-C [address] [place] [address] 771935 Assigned Musculoskeletal Provider 04/17/24 Tanisha Marlow 4120 [facility] [address] 03/30/24 documented as of this encounter
--- OUTSIDE RECORDS SUMMARY | 2024-08-03 23:21 | XMS_ITS | Encounter Summary ---
Author Organization [facility] Address [address] [place] [address] Care Team Providers Care Drill Press Operator Numerical Control Name Role Phone Carlos Joyner MD Unavailable [phone] Jadon Murray MD Unavailable [phone] Maru Villagomez RN Unavailable Unavailable Ignacia Duran MD Primary Care Provider [phone] Ang Slade MD Unavailable [phone] Carlos Joyner MD Unavailable [phone] Annalise Orta PA-C Unavailable [phone] Ang Slade MD Unavailable [phone] Lakshmi Wilhelm-C Unavailable [phone] Heladio Willoughby MD Primary Care Provider [phone] Heladio Willoughby MD Unavailable Alissa Perez PA-C Unavailable [phone] Lakshmi Wilhelm PA-C Unavailable [phone] Aidee Valero PA-C Unavailable [phone] Encounter Details Date Type Department Care Team (Late st Contact Info) Description 12/05/2021 [facility] Urology Clinic [address] [address] [facility] Social History Tobacco Use Types Packs/Day [...] [facility] Urology Clinic [address] [phone] Carlos Joyner MD [address] [place] [address] 339365 09/13/2024 11:00 AM CDT Office Visit [facility] [address] [place] [address] [place] [address] [place] [address] 09/20/2024 11:00 AM CDT Office Visit [facility] Sleep [address] [phone] Sugey Mccoy, TYPEWRITERS FUNCTIONAL TESTER [facility] [address] [place] [address] 298084 documented as of this encounter Visit Diagnoses Not on filedocumented in this encounter Additional Health Concerns Infection Onset Date Last Indicated Resolved Time MRSA Comment:Added from external infection. Pt has had Staph infections but never MRSA from Care everywhere chart review. Removing MRSA 9.14.23 06/17/2019 02/06/2023 9:41 AM C DT documented as of this encounter Care Teams Drill Press Operator Numerical Control Relationship Specialty Start Date End Date Ignacia Duran MD PCP - General Pediatrics 01/20/20 03/04/23 [place] [address] [place] [address] PCP - General 03/05/23 Carlos Joyner MD [address] [place] [address] Urology 12/09/19 Jadon Murray MD [facility] [address] [address] Referring Physician Pediatric Surgery 12/09/19 Maru Villagomez, OTILIO Registered Nurse 12/10/19 Ang Slade MD [address] 339395 Urology 04/24/20 Carlos Joyner MD [address] [place] [address] Assigned Surgical Provider 12/24/20 Annalise Orta PA-C 5200 [place] [address] Assigned Cancer Care Provider 05/13/21 11/01/22 Ang Slade MD [address] [address] Urology 12/18/22 Lakshmi Wilhelm PA-C [address] [place] [address] Physician Licensed Midwife Urology 02/03/23 [place] [address] [place] [address] Assigned PCP 02/06/23 Alissa Perez PA-C [address] [place] [address] Physician Licensed Midwife Surgery 09/04/23 Lakshmi Wilhelm PA-C [address] [place] [address] Physician Licensed Midwife Urology 09/16/23 Aidee Valero PA-C [address] [place] [address] Assigned Musculoskeletal Provider 04/17/24 Tanisha Marlow 4120 [facility] [address] 03/30/24 documented as of this encounter
--- OUTSIDE RECORDS SUMMARY | 2024-08-03 23:21 | XMS_ITS | Encounter Summary ---
Author Organization [facility] Address [address] [facility] [place] [address] Care Team Providers Care Research Center Director Name Role Phone Carlos Joyner MD Unavailable [phone] Jadon Murray MD Unavailable [phone] Maru Villagomez RN Unavailable Unavailable Ang Slade MD Unavailable [phone] Carlos Joyner MD Unavailable [phone] Ang Slade MD Unavailable +[phone] Lakshmi Wilhelm PA-C Unavailable +[phone] Heladio Willoughby MD Primary Care Provider [phone] Heladio Willoughby MD Unavailable Alissa Perez PA-C Unavailable [phone] Lakshmi Wilhelm PA-C Unavailable [phone] Aidee Valero PA-C Unavailable +[phone] Encounter Details Date Type Department Care Team (Late st Contact Info) Description 03/27/2023 MyC Medical Advice UR PREOP/PHASE II [address] [place] [phone] Lisette Salinas RN Social History Tobacco Use [...] in an overnight fpc, or couch-surfing.) Yes 02/26/2023 Are you worried [...] CDT Virtual Visit [facility] [address] 4th [place] [address] Carlos Joyner MD [address] [place] [address] 087905 09/13/2024 11:00 AM CDT Office Visit [address] [address] [place] [address] [place] [address] 09/20/2024 11:00 AM CDT Office Visit [facility] [address] [place] [phone] Darius Elvirginia Elder, PROPOSAL COORDINATOR SPECIAL DELIVERY MAIL CARRIER [address] [address] [place] [address] documented as of this encounter Visit Diagnoses Not on filedocumented in this encounter Care Teams Research Center Director Relationship Specialty Start [place] [address] [place] [address] PCP - General 03/05/23 Carlos Joyner MD [address] [place] [address] 121375 Urology 12/09/19 Jadon Murray MD [facility] [address] [facility] [address] [place] [address] Referring Physician Pediatric Surgery 12/09/19 Maru Villagomez, OTILIO Registered Nurse 12/10/19 Ang Slade MD [address] [place] [address] 596235 Urology 04/24/20 Carlos Joyner MD 9 [place], [place] 159235 Assigned Surgical Provider 12/24/20 Ang Slade MD [address] [place] [address] 496415 Urology 12/18/22 Lakshmi Wilhelm PA-C [address] [place] [address] 16035 Physician Muffle Operator Urology 02/03/23 [place] [address] [facility] [place] [address] Assigned PCP 02/06/23 Alissa Perez PA-C [address] [place] [address] 16378 Physician Muffle Operator Surgery 09/04/23 Lakshmi Wilhelm PA-C [address] [place] [address] 27140 Physician Muffle Operator Urology 09/16/23 Aidee Valero PA-C [address] [place] [address] 379835 Assigned Musculoskeletal Provider 04/17/24 Tanisha Marlow 4120 [facility] [address] 03/30/24 documented as of this encounter
--- OUTSIDE RECORDS SUMMARY | 2024-08-03 23:21 | XMS_ITS | Encounter Summary ---
Author Organization [facility] Address [address] [place] [address] Care Team Providers Care Junior High School Teacher Name Role Phone Carlos Joyner MD Unavailable [phone] Jadon Murray MD Unavailable [phone] Maru Villagomez RN Unavailable Unavailable Ang Slade MD Unavailable +[phone] Carlos Joyner MD Unavailable [phone] Ang Slade MD Unavailable [phone] Lakshmi Wilhelm-C Unavailable [phone] Heladio Willoughby MD Primary Care Provider [phone] Heladio Willoughby MD Unavailable Alissa Perez PA-C Unavailable [phone] Lakshmi Wilhelm-C Unavailable [phone] Aidee Valero PA-C Unavailable Reason for Visit * Reason Comments Medication Refill Encounter Details Date Type Department Care Team (Late st Contact Info) Description 07/05/2024 Refill [facility] [address] [place] [address] Carlos Joyner MD [address] [place] [address] Medication Refill Social History Tobacco Use [...] MORNINGStart: 06/17/2023Ord/Sold: 06/17/2023 (O)Ordered On: 4Pharmacy: [id number] [address] Associated: Taking: Long-term: Med Note: Patient Sig: Take 1 tablet (1.25 mg) by mouth every morning Ordering Department: [facility] Authorized By: Carlos Joyner MD Dispense: 90 tablet Refills: 3 ordered Last Visit Date: 09/23/23 Anya MANRIQUE Future Visit Date: 09/07/24 [] Refill decision: Medication refilled per ???Medication Refill in Exhibition Specialist?? policy. [] Supervision: no future appointment scheduled. [...] in past 12 months Elysia Emanuel RN [facility] Central Nursing/Red Flag Triage & Med Refill Team K WORKER documented in this encounter Plan of Treatment Upcoming Encounters Date Type Department Care Team (Late st Contact Info) Description 09/07/2024 8:30 AM CDT Virtual Visit [facility] [address] 4th [place] [phone] Carlos Joyner MD [address] [place] [address] 112215 09/13/2024 11:00 AM CDT Office Visit [facility] [address] [place] [address] [place] [address] [place], [place] 0578668 09/20/2024 11:00 AM CDT Office Visit [facility] [address] [phone] Sugey Mccoy, BILINGUAL SALES CONSULTANT [address] 296454 documented as of this encounter Visit Diagnoses Diagnosis Hypercalciuria Unspecified disorders of calcium metabolism documented in this encounter Care Teams Junior High School Teacher Relationship Specialty Start [place] [address] [place], [place] [phone] PCP - General 03/05/23 Carlos Joyner MD [address] [place] [address] 39843 Urology 12/09/19 Jadon Murray MD [facility] [address] [address] Referring Physician Pediatric Surgery 12/09/19 Maru Villagomez, OTILIO Registered Nurse 12/10/19 Ang Slade MD [address] [place] [address] 75791 Urology 04/24/20 Carlos Joyner MD [address] [place] [address] 41296 Assigned Surgical Provider 12/24/20 Ang Slade MD [address] [place] [address] 53352 Urology 12/18/22 Lakshmi Wilhelm PA-C [address] [place] [address] 68776 Physician Geothermal Powerplant Mechanic Urology 02/03/23 [place] [address] [facility] [place], [place] [phone] Assigned PCP 02/06/23 Alissa Perez PA-C [address] [place] [address] 186985 Physician Geothermal Powerplant Mechanic Surgery 09/04/23 Lakshmi Wilhelm PA-C 909 [place], [place] 691905 Physician Geothermal Powerplant Mechanic Urology 09/16/23 Aidee Valero PA-C [address] [place] [address] 514205 Assigned Musculoskeletal Provider 04/17/24 Tanisha Marlow 4120 [facility] [id number] 03/30/24 documented as of this encounter
--- OUTSIDE RECORDS SUMMARY | 2024-08-03 23:21 | XMS_ITS | Encounter Summary ---
Author Organization [facility] Address [address] [place] [address]. [place] [address] Care Team Providers Care Turret Lathe Machinist Name Role Phone Cralos Joyner MD Unavailable [phone] Jadon Murray MD Unavailable [phone] Maru Villagomez RN Unavailable Unavailable Ang Slade MD Unavailable [phone] Carlos Joyner MD Unavailable [phone] Ang Slade MD Unavailable [phone] Lakshmi Wilhelm-C Unavailable [phone] Heladio Willoughby MD Primary Care Provider [phone] Heladio Willoughby MD Unavailable Alissa Perez PA-C Unavailable [phone] Lakshmi Wilhelm-C Unavailable [phone] Aidee Valero PA-C Unavailable [phone] Reason for Visit * Reason Onset Date Comments IUD 07/22/2024 Encounter Details Date Type Department Care Team (Late st Contact Info) Description 07/22/2024 Telephone [facility] [address] [place] [address] [place] [address] [place] [address] IUD Social History Tobacco Use [...] than three times a week 07/16/2024 Attends Sikhism Services Not on file 07/16 Active Member of Clubs or Organizations Not on f ile 07/16/2024 Attends Club or Organization Meetings Not on antelmo e 07/16/2024 Marital Status Not on file 07/16/2024 PHQ-2 Answer Date Recorded PHQ-2 Score Incomplete 07/21/2024 [facility] of Occupat ional Health - Occupational Stress [...] building, in an overnight detention, or couch-surfing.) No 07/16/2024 Are you worried [...] Mercy Feliz RN - 07/22/2024 4:10 PM SENIOR RISK ANALYST TC's: Dr. Leija recommended pt get IUD. Called guardian and guardian stated that she will talk with pt and call back if they would like to proceed. When Tanisha (guardian) calls back please help schedulethis appointment. Dr. Leija would like PAP done at the same time and would like this appointment to be at least 1 hr long. Ski Patrol Officer not sure how to schedule this so routing to TC's as FYI for when guardian calls back. (See other telephone encounter from 07/22 for more details) YOLA Salinas, RN [facility] 07/22/2024 at 4:12 PM OR RISK ANALYST documented in this encounter Plan of Treatment Upcoming Encounters Date Type Department Care Team (Late st Contact Info) Description 09/07/2024 8:30 AM CDT Virtual Visit [facility] [address] [place] [address] Carlos Joyner MD [address] [place] [address] 09/13/2024 11:00 AM CDT Office Visit [facility] [address] [place] [address] [place] [address] [place], [place] 0509568 09/20/2024 11:00 AM CDT Office Visit [facility] [address] [place] [address] Sugey Mccoy, PARTITION ASSEMBLER FEDERAL AID COORDINATOR [address] [place] [address] [address] [place] [address] documented as of this encounter Visit Diagnoses Not on filedocumented in this encounter Care Teams Turret Lathe Machinist Relationship Specialty Start [place] [address] [place] [address] PCP - General 03/05/23 Carlos Joyner MD [address] [place] [address] 0[address] Urology 12/09/19 Jadon Murrya MD [facility] 2530 [facility] [address] 550 [place] [address] Referring Physician Pediatric Surgery 12/09/19 Maru Villagomez, OTILIO Registered Nurse 12/10/19 Ang Slade MD [address] [address] Urology 04/24/20 Carlos Joyner MD [address] [place] [address] 16014 Assigned Surgical Provider 12/24/20 Ang Slade MD [address] [address] Urology 12/18/22 Lakshmi Wilhelm PA-C [address] [place] [address] 589005 Physician Partition Assembler Urology 02/03/23 [place] [address] [place] [address] Assigned PCP 02/06/23 Alissa Perez PA-C [address] [place] [address] 732335 Physician Partition Assembler Surgery 09/04/23 Lakshmi Wilhelm PA-C [address] [place] [address] 022685 Physician Partition Assembler Urology 09/16/23 Aidee Valero PA-C [address] [place] [address] 308255 Assigned Musculoskeletal Provider 04/17/24 Tanisha Marlow 4120 [facility] [address] 03/30/24 documented as of this encounter
--- OUTSIDE RECORDS SUMMARY | 2024-08-03 23:21 | XMS_ITS | Encounter Summary ---
Author Organization [facility] Address [address] [place] [address] Care Team Providers Care Cognos Report Developer Name Role Phone Carlos Joyner MD Unavailable [phone] Jadon Murray MD Unavailable [phone] Maru Villagomez RN Unavailable Unavailable Ignacia Duran MD Primary Care Provider [phone] Ang Slade MD Unavailable [phone] Carlos Joyner MD Unavailable [phone] Annalise Orta PA-C Unavailable [phone] Ang Slade MD Unavailable [phone] Lakshmi Wilhelm-C Unavailable [phone] Heladio Willoughby MD Primary Care Provider [phone] Heladio Willoughby MD Unavailable Alissa Perez PA-C Unavailable [phone] Lakshmi Wilhelm PA-C Unavailable [phone] Aidee Valero PA-C Unavailable [phone] Encounter Details Date Type Department Care Team (Late st Contact Info) Description 04/16/[address] [facility] [address] [place] [address] Berna Britton Social History Tobacco [...] Virtual Visit [facility] [address] [place] [phone] Carlos Joyner MD [address] [place] [address] 09/13/2024 11:00 AM CDT Office Visit [facility] [address] [place] [address] [place] [address] [place] [address] 09/20/2024 11:00 AM CDT Office Visit [facility] [address] [address] Sugey Mccoy APRN [address] 994154 documented as of this encounter Visit Diagnoses Not on filedocumented in this encounter Additional Health Concerns Infection Onset Date Last Indicated Resolved Time MRSA Comment:Added from external infection. Pt has had Staph infections but never MRSA from Care everywhere chart review. Removing MRSA 02.06.23 06/17/2019 02/06/2023 9:41 AM C DT documented as of this encounter Care Teams Cognos Report Developer Relationship Specialty Start Date End Date Ignacia Duran MD PCP - General Pediatrics 01/20/20 03/04/23 [place] [address] [place] [address] PCP - General 03/05/23 Carlos Joyner MD [address] [place] [address] Urology 12/09/19 Jadon Murray MD [facility] [address] [address] Referring Physician Pediatric Surgery 12/09/19 Maru Villagomez, RN Registered Nurse 12/10/19 Ang Slade MD [address] [place] [address]2443 Urology 04/24/20 Carlos Joyner MD [address] [place] [address] Assigned Surgical Provider 12/24/20 Annalise Orta PA-C 5200 [place] [address] Assigned Cancer Care Provider 05/13/21 11/01/22 Ang Slade MD [address] [place] [address] Urology 12/18/22 Lakshmi Wilhelm PA-C [address] [place] [address] Physician Waste Cotton Cleaner Urology 02/03/23 [place] [address] [place] [address] Assigned PCP 02/06/23 Alissa Perez PA-C [address] [place] [address] 707115 Physician Waste Cotton Cleaner Surgery 09/04/23 Lakshmi Wilhelm PA-C [address] [place] [address] 262305 Physician Waste Cotton Cleaner Urology 09/16/23 Aidee Valero PA-C [address] [place] [address] 480945 Assigned Musculoskeletal Provider 04/17/24 Tanisha Marlow 4120 [facility] [address] 03/30/24 documented as of this encounter
--- OUTSIDE RECORDS SUMMARY | 2024-08-03 23:21 | XMS_ITS | Encounter Summary ---
Author Organization [facility] Address [address] [place] [address] Care Team Providers Care Clerk General Office Name Role Phone Carlos Joyner MD Unavailable [phone] Jadon Murray MD Unavailable [phone] Maru Villagomez RN Unavailable Unavailable Ang Slade MD Unavailable [phone] Carlos Joyner MD Unavailable [phone] Ang Slade MD Unavailable [phone] Lakshmi Wilhelm-C Unavailable Heladio Willoughby MD Primary Care Provider [phone] Heladio Willoughby MD Unavailable Alissa Perez PA-C Unavailable [phone] Lakshmi Wilhelm-C Unavailable [phone] Aidee Valero PA-C Unavailable Reason for Visit * Reason Onset Date Comments Prior Auth - Medication 07/27/2024 COMPOUND ED NON-CONTROLLED SUBSTANCE (CMPD RX) - PHARMACY TO MIX COMPOUNDED MEDICATION--DENIED Encounter Details Date Type Department Care Team (Late st Contact Info) Description 07/27/2024 [facility] [address] [place] [address] Carlos Joyner MD [address] [place] [address] Prior Auth - Medication (COMPOUNDED NON-CONTROLLED [...] than three times a week 07/16/2024 Attends Worship Services Not on file 07/16 Active Member of Clubs or Organizations Not on f ile 07/16/2024 Attends Club or Organization Meetings Not on antelmo e 07/16/2024 Marital Status Not on file 07/16/2024 PHQ-2 Answer Date Recorded PHQ-2 Score Incomplete 07/21/2024 [facility] - Occupational Stress Questionnaire Answer [...] PHARMACY TO MIX COMPOUNDED MEDICATION Insurance Company: Group 47 D - Denial Date: 07/30/2024 Denial Reason(s): Excluded Appeal Information: * Telephone Encounter - Daly Eaton - 07/29/2024 3:17 PM CST Images from the original note were not included. PA Initiation Medication: COMPOUNDED NON-CONTROLLED (CMPD RX) - PHARMACY TO MIX COMPOUNDED MEDICATION Insurance Company: [employer] Part D - Pharmacy Filling the Rx: [facility] - [place], [place] - [address] Filling Pharmacy Filling Pharmacy Start Date: 07/29/2024 TAINER OPERATOR * Telephone Encounter - Yovana Burt - 07/27/2024 1:05 PM CST A prior authorization is needed for the following compounded medications prescribed. Please complete a prior authorization with the information included below. Medication: Compounded Gentamicin 480 mg/L Bladder Irrigation Ingredients NDCs Quantities Gentamicin Sulfate 40 mg/mL Solution [address]-40 10.800 mLs Sodium Chloride 0.9% Solution [address]-20 889.200 mLs BD Syringe 50 mL [id number] 30.000 grams RX #: Reason for Rejection:[id number] Pharmacy Insurance plan: [employer] Part D BIN #:[id number] ID #:[id number] PCN #:[id number] Phone #:[phone] Pharmacy Please advise the [facility] @ [phone] when the prior authorization is approved or denied. Additionally, this medication is no longer covered by the [facility] [place] plan (what the patient now has), so there may be a copay associated with the medication once it is approved. Thank you for your time. [email or web address] [address] [place] [address] TAINER OPERATOR documented in this encounter Plan of Treatment Upcoming Encounters Date Type Department Care Team (Late st Contact Info) Description 09/07/2024 8:30 AM CDT Virtual Visit [facility] [address] [phone] Carlos Joyenr MD [address] [place] [address] 09/13/2024 11:00 AM CDT Office Visit [facility] [address] [place] [address] [place] [address] [place] [address] 09/20/2024 11:00 AM CDT Office Visit [place] [facility] [address] [place] [phone] Sugey Mccoy, IT SUPPORT ANALYST PUNCHBOARD INSERTER [address] [place], [place] 923[address] documented as of this encounter Visit Diagnoses Not on filedocumented in this encounter Care Teams Clerk General Office Relationship Specialty [place] [address] [place] [address] PCP - General 03/05/23 Carlos Joyner MD [address] [place] [address] 753155 Urology 12/09/19 Jadon Murray MD [facility] [address] [place] [address] Referring Physician Pediatric Surgery 12/09/19 Maru Villagomez, OTILIO Registered Nurse 12/10/19 Ang Slade MD [address] [place] [address] 695305 Urology 04/24/20 Carlos Joyner MD [address] [place] [address] 83798 Assigned Surgical Provider 12/24/20 Ang Slade MD [address] [place] [address] 8[address] Urology 12/18/22 Lakshmi Wilhelm PA-C [address] [place] [address] 793735 Physician Car Dealer Urology 02/03/23 [place] [address] [place] [address] Assigned PCP 02/06/23 Alissa Perez PA-C [address] [place] [address] 896295 Physician Car Dealer Surgery 09/04/23 Lakshmi Wilhelm PA-C [address] [place] [address] 898905 Physician Car Dealer Urology 09/16/23 Aidee Valero PA-C [address] [place] [address] 613125 Assigned Musculoskeletal Provider 04/17/24 Tanisha Marlow 4120 [facility] [address] 03/30/24 documented as of this encounter
--- OUTSIDE RECORDS SUMMARY | 2024-08-03 23:21 | XMS_ITS | Encounter Summary ---
Author Organization [facility] Address [address] [place] [address] Care Team Providers Care Director Of Marketing Operations Name Role Phone Carlos Joyner MD Unavailable [phone] Jadon Murray MD Unavailable [phone] Maru Villagomez RN Unavailable Unavailable Ang Slade MD Unavailable [phone] Carlos Joyner MD Unavailable [phone] Ang Slade MD Unavailable [phone] Lakshmi Wilhelm PA-C Unavailable [phone] Heladio Willoughby MD Primary Care Provider [phone] Heladio Willoughby MD Unavailable Alissa Perez PA-C Unavailable [phone] Lakshmi Wilhelm PA-C Unavailable [phone] Aidee Valero PA-C Unavailable [phone] Reason for Visit * Reason Onset Date Comments Clinic Care Coordination - Follow-up 07/22/2024 Med request Encounter Details Date Type Department Care Team (Late st Contact Info) Description 07/22/2024 Telephone [facility] [place] [address] [facility] 4th [place] [address] Rosita Velasco RN Clinic Care [...] than three times a week 07/16/2024 Attends Orthodoxy Services Not on file 07/16 Active Member of Clubs or Organizations Not on f ile 07/16/2024 Attends Club or Organization Meetings Not on antelmo e 07/16/2024 Marital Status Not on file 07/16/2024 PHQ-2 Answer Date Recorded PHQ-2 Score Incomplete 07/21/2024 [facility] of Occupat ional Health - Occupational [...] with Dr. Joyner in August. OTILIO Becker Sider Mechanic- Urology [phone] ING FOREMAN documented in this encounter Plan of Treatment Upcoming Encounters Date Type Department Care Team (Late st Contact Info) Description 09/07/2024 8:30 AM CDT Virtual Visit [facility] [address] [phone] Carlos Joyner MD [address] [place] [address] 724445 09/13/2024 11:00 AM CDT Office Visit [facility] [address] [place] [address] [place] [address] [place], [place] 2729168 09/20/2024 11:00 AM CDT Office Visit [address] [phone] Sugey Mccoy APRN [address] 908064 documented as of this encounter Visit Diagnoses Diagnosis Recurrent UTI- Primary Urinary tract infection, site not specified documented in this encounter Care Teams Director Of Marketing Operations Relationship Specialty Start [place] [address] [place] [address] PCP - General 03/05/23 Carlos Joyner MD [address] [place] [address] Urology 12/09/19 Jadon Murray MD [facility] [address] [id number] Referring Physician Pediatric Surgery 12/09/19 Maru Villagomez, RN Registered Nurse 12/10/19 Ang Slade MD [address] [place] [address] Urology 04/24/20 Carlos Joyner MD [address] [place] [address] 181215 Assigned Surgical Provider 12/24/20 Ang Slade MD [address] [place] [address] 767895 Urology 12/18/22 Lakshmi Wilhelm PA-C [address] [place] [address] 564945 Physician Correspondence School Instructor Urology 02/03/23 [place] [address] [place] [address] Assigned PCP 02/06/23 Alissa Perez PA-C [address] [place] [address] 671835 Physician Correspondence School Instructor Surgery 09/04/23 Lakshmi Wilhelm PA-C [address] [place] [address] 44028455 Physician Correspondence School Instructor Urology 09/16/23 Aidee Valero PA-C [address] [place] [address] 26657455 Assigned Musculoskeletal Provider 04/17/24 Tanisha Marlow 4120 [facility] [address] 03/30/24 documented as of this encounter
--- OUTSIDE RECORDS SUMMARY | 2024-08-03 23:21 | XMS_ITS | Encounter Summary ---
Author Organization [facility] Address [address] [place] [address]. [place] [address] Care Team Providers Care Kettle Room Helper Name Role Phone Carlos Joyner MD Unavailable [phone] Jadon Murray MD Unavailable [phone] Maru Villagomez RN Unavailable Unavailable Ang Slade MD Unavailable [phone] Carlos Joyner MD Unavailable +[phone] Ang Slade MD Unavailable +[phone] Lakshmi Wilhelm PA-C Unavailable [phone] Heladio Willoughby MD Primary Care Provider [phone] Heladio Willoughby MD Unavailable Alissa Perez PA-C Unavailable [phone] Lakshmi Wilhelm-C Unavailable [phone] Aidee Valero PA-C Unavailable +[phone] Encounter Details Date Type Department Care Team (Late st Contact Info) Description 07/09/2024 [facility] Medical Advice [facility] [address] [place] [address] Hattie Wing, RN Social History [...] Upcoming Encounters Date Type Department Care Team ([facility] st Contact Info) Description 09/07/2024 8:30 AM CDT Virtual Visit [facility] [address] [place] [address] Carlos Joyner MD [address] [place] [address] 09/13/2024 11:00 AM CDT Office Visit [facility] [address] [place] [address] [place] [address] [place] [address] 09/20/2024 11:00 AM CDT Office Visit [facility] [address] [place] [address] Sugey Mccoy, MACHINE II TRIMMER ASPARAGUS BUNCHER [address] [place] [address] [address] [place] [address] documented as of this encounter Visit Diagnoses Not on filedocumented in this encounter Care Teams Kettle Room Helper Relationship Specialty Start [place] [address] [place] [address] PCP - General 03/05/23 Carlos Joynre MD [address] [place] [address] Urology 12/09/19 Jadon Murray MD [facility] [address] [place] [address] Referring Physician Pediatric Surgery 12/09/19 Maru Villagomez, OTILIO Registered Nurse 12/10/19 Ang Slade MD [address] [address] Urology 04/24/20 Carlos Joyner MD [address] [place] [address] Assigned Surgical Provider 12/24/20 Ang Slade MD [address] [address] Urology 12/18/22 Lakshmi Wilhelm PA-C [address] [place] [address] 422595 Physician Printing Press Operator Apprentice Urology 02/03/23 [place] [address] [place] [address] Assigned PCP 02/06/23 Alissa Perez PA-C [address] [place] [address] 640245 Physician Printing Press Operator Apprentice Surgery 09/04/23 Lakshmi Wilhelm PA-C [address] [place] [address] 855235 Physician Printing Press Operator Apprentice Urology 09/16/23 Aidee Valero PA-C [address] [place] [address] 133715 Assigned Musculoskeletal Provider 04/17/24 Tanisha Marlow 4120 [facility] [address] 03/30/24 documented as of this encounter
--- OUTSIDE RECORDS SUMMARY | 2024-08-03 23:21 | XMS_ITS | Encounter Summary ---
Author Organization [facility] Address [address] [place] [address] Care Team Providers Care Hosiery Repairer Name Role Phone Carlos Joyner MD Unavailable [phone] Jadon Murray MD Unavailable [phone] Maru Villagomez RN Unavailable Unavailable Ignacia Duran MD Primary Care Provider [phone] Ang Slade MD Unavailable +[phone] Carlos Joyner MD Unavailable +[phone] Annalise Orta PA-C Unavailable Ang Slade MD Unavailable +[phone] Lakshmi Wilhelm-C Unavailable Heladio Willoughby MD Primary Care Provider Heladio Willoughby MD Unavailable Alissa Perez PA-C Unavailable [phone] Lakshmi Wilhelm PA-C Unavailable Aidee Valero PA-C Unavailable [phone] Encounter Details Date Type Department Care Team (Late st Contact Info) Description 12/18/[address] [facility] Urology Clinic [address] [place] [address] Carlos Joyner MD [address] [place] [address] Social History Tobacco Use Types Packs/Day [...] Upcoming Encounters Date Type Department Care Team ([facility] st Contact Info) Description 09/07/2024 8:30 AM CDT Virtual Visit [facility] [address] [place] [address] Carlos Joyner MD [address] [place] [address] 09/13/2024 11:00 AM CDT Office Visit [facility] [address] [place] [address] [place] [address] [place], [place] 90675[address] 09/20/2024 11:00 AM CDT Office Visit [facility] [address] [phone] Sugey Mccoy APRN [address] [address] documented as of this encounter Visit Diagnoses Not on filedocumented in this encounter Additional Health Concerns Infection Onset Date Last Indicated Resolved Time MRSA Comment:Added from external infection. Pt has had Staph infections but never MRSA from Care everywhere chart review. Removing MRSA 9.14.23 06/17/2019 02/06/2023 9:41 AM C DT documented as of this encounter Care Teams Hosiery Repairer Relationship Specialty Start Date End Date Ignacia Duran MD PCP - General Pediatrics 01/20/20 03/04/23 [place] [address] [place] [address] PCP - General 03/05/23 Carlos Joyner MD [address] [place] [address] 082305 Urology 12/09/19 Jadon Murray MD [facility] [address] [phone] Referring Physician Pediatric Surgery 12/09/19 Maru Villagomez, RN Registered Nurse 12/10/19 Ang Slade MD [address] [place] [address] Urology 04/24/20 Carlos Joyner MD [address] [place] [address] Assigned Surgical Provider 12/24/20 Annalise Orta PA-C 5200 [place] [address] Assigned Cancer Care Provider 05/13/21 11/01/22 Ang Slade MD [address] 164385 Urology 12/18/22 Lakshmi Wilhelm PA-C [address] [place] [address] 429755 Physician Grinder Lap Urology 02/03/23 [place] [address] [place] [address] Assigned PCP 02/06/23 Alissa Perez PA-C [address] [place] [address] Physician Grinder Lap Surgery 09/04/23 Lakshmi Wilhelm PA-C [address] [place] [address]397 Physician Grinder Lap Urology 09/16/23 Aidee Valero PA-C [address] [place] [address] 062575 Assigned Musculoskeletal Provider 04/17/24 Tanisha Marlow 4120 [facility] [address] 03/30/24 documented as of this encounter
--- OUTSIDE RECORDS SUMMARY | 2024-08-03 23:21 | XMS_ITS | Encounter Summary ---
Author Organization [facility] Address [address] [place] [address] Care Team Providers Care General Warehouse Worker Name Role Phone Carlos Joyner MD Unavailable [phone] Jadon Murray MD Unavailable [phone] Maru Villagomez RN Unavailable Unavailable Ang Slade MD Unavailable [phone] Carlos Joyner MD Unavailable +[phone] Ang Slade MD Unavailable [phone] Lakshmi Wilhelm-C Unavailable [phone] Heladio Willoughby MD Primary Care Provider Heladio Willoughby MD Unavailable Alissa Perez PA-C Unavailable [phone] Lakshmi Wilhelm-C Unavailable [phone] Aidee Valero PA-C Unavailable [phone] Encounter Details Date Type Department Care Team [...] than three times a week 07/16/2024 Attends Gnosticism Services Not on file 02/21 /2025 Active Member of Clubs or Organizations Not on f ile 07/16/2024 Attends Club or Organization Meetings Not on antelmo e 07/16/2024 Marital Status Not on file 07/16/2024 PHQ-2 Answer Date Recorded PHQ-2 Score Incomplete 07/21/2024 [facility] Occupat ional Health - Occupational Stress [...] Virtual Visit [facility] [place] [address] [facility] 4th [place] [phone] Carlos Joyner MD [address] [place] [address] 09/13/2024 11:00 AM CDT Office Visit [facility] [address] [place] [phone] [place] [address] [place], [place] 2443768 09/20/2024 11:00 AM CDT Office Visit [facility] Sleep [address] [place] [phone] Sugey Mccoy, BRANCH GENERAL MANAGER [address] [place], [place] 00[address] documented as of this encounter Visit Diagnoses Not on filedocumented in this encounter Care Teams General Warehouse Worker Relationship Specialty Start Date End Date Helad[place] [address] [place] [address] [id number] PCP - General 03/05/23 Carlos Joyner MD [address] [place] [address] Urology 12/09/19 Jadon Murray MD [facility] 2530 [facility] 550 [place] [address] Referring Physician Pediatric Surgery 12/09/19 Maru Villagomez, OTILIO Registered Nurse 12/10/19 Ang Slade MD [address] [place] [address] 394 [place], [place] 433345 Urology 04/24/20 Carlos Joyner MD [address] [place] [address] 033205 Assigned Surgical Provider 12/24/20 Ang Slade MD [address] [place] [address] Urology 12/18/22 Lakshmi Wilhelm PA-C [address] [place] [address] 818755 Physician Stator Tester Urology 02/03/23 [place] [address] [place] [address] Assigned PCP 02/06/23 Alissa Perez PA-C [address] [place] [address] 124945 Physician Stator Tester Surgery 09/04/23 Lakshmi Wilhelm PA-C [address] [place] [address] Physician Stator Tester Urology 09/16/23 Aidee Valero PA-C [address] [place] [address] 326915 Assigned Musculoskeletal Provider 04/17/24 Tanisha Marlow 4120 [facility] [address] 03/30/24 documented as of this encounter
--- OUTSIDE RECORDS SUMMARY | 2024-08-03 23:21 | XMS_ITS | Encounter Summary ---
Author Organization [facility] Address [address] [place] [address] Care Team Providers Care Oncology Rn Name Role Phone Carlos Joyner MD Unavailable [phone] Jadon Murray MD Unavailable [phone] Maru Villagomez RN Unavailable Unavailable Ignacia Duran MD Primary Care Provider [phone] Carlos Joyner MD Unavailable +[phone] Ang Slade MD Unavailable [phone] Ang Slade MD Unavailable [phone] Carlos Joyner MD Unavailable +[phone] Annalise Orta-C Unavailable [phone] Ang Slade MD Unavailable [phone] Lakshmi Wilhelm-C Unavailable [phone] Heladio Willoughby MD Primary Care Provider [phone] Heladio Willoughby MD Unavailable Alissa Perez PA-C Unavailable [phone] Lakshmi Wilhelm-C Unavailable [phone] Aidee Valero PA-C Unavailable [phone] Reason for Visit * Reason Comments Orders Encounter Details Date Type Department Care Team (Late st Contact Info) Description 02/02/2020 Orders Only [facility] Urology and [facility] [address] [address] Maru Villagomez, RN Social History Tobacco Use [...] 09/07/2024 8:30 AM CDT Virtual Visit [facility] [address] 4th [place] [phone] Carlos Joyner MD [address] [place] [address] 09/13/2024 11:00 AM CDT Office Visit [facility] [address] [place] [phone] [place] [address] [place], [place] 4402368 09/20/2024 11:00 AM CDT Office Visit [facility] [address] [phone] Sugey Mccoy APRN [address] 738974 documented as of this encounter Visit Diagnoses Not on filedocumented in this encounter Additional Health Concerns Infection Onset Date Last Indicated Resolved Time MRSA Comment:Added from external infection. Pt has had Staph infections but never MRSA from Care everywhere chart review. Removing MRSA 14.23 06/17/2019 02/06/2023 9:41 AM C DT documented as of this encounter Care Teams Oncology Rn Relationship Specialty Start Date End Date Ignacia Duran MD PCP - General Pediatrics 01/20/20 03/04/23 [place] [address] [place] [address] PCP - General 03/05/23 Carlos Joyner MD [address] [place] [address] 384615 Urology 12/09/19 Jadon Murray MD [facility] [address] [phone] Referring Physician Pediatric Surgery 12/09/19 Maru Villagomez, RN Registered Nurse 12/10/19 Carlos Joyner MD [address] [place] [address] 863225 Assigned Surgical Provider 03/17/20 Ang Slade MD [address] [place] [address] Urology 04/24/20 Ang Slade MD [address] [place] [address] Assigned Surgical Provider 08/13/20 Carlos Joyner MD [address] [place] [address] 060305 Assigned Surgical Provider 12/24/20 Annalise Orta PA-C 5200 [place] [address] Assigned Cancer Care Provider 05/13/21 11/01/22 Ang Slade MD [address] [place] [address] 119005 MD Urology 12/18/22 Lakshmi Wilhelm PA-C [address] [place] [address] 087025 Physician Rn Surgery [facility] U[facility] 02/03/23 [place] [address] [place] [address] Assigned PCP 02/06/23 Alissa Perez PA-C [address] [place] [address] 611895 Physician Rn Surgery [facility] Surgery 09/04/23 Lakshmi Wilhelm PA-C [address] [place] [address] 227975 Physician Rn Surgery [facility] Urology 09/16/23 Aidee Valero PA-C [address] [place] [address] 148355 Assigned Musculoskeletal Provider 04/17/24 Tanisha Marlow 4120 [place] [address] 03/30/24 documented as of this encounter
--- OUTSIDE RECORDS SUMMARY | 2024-08-03 23:21 | XMS_ITS | Encounter Summary ---
Author Organization [facility] Address [address] [place] [address] Care Team Providers Care Bridal Stylist Sales Consultant Name Role Phone Carlos Joyner MD Unavailable [phone] Jadon Murray MD Unavailable [phone] Maru Villagomez RN Unavailable Unavailable Ang Slade MD Unavailable [phone] Carlos Joyner MD Unavailable +[phone] Ang Slade MD Unavailable [phone] Lakshmi Wilhelm PA-C Unavailable Heladio Willoughby MD Primary Care Provider [phone] Heladio Willoughby MD Unavailable Alissa Perez PA-C Unavailable [phone] Lakshmi Wilhelm PA-C Unavailable [phone] Aidee Valero PA-C Unavailable [phone] Encounter Details Date Type Department Care Team (Late st Contact Info) Description 09/18/2023 [facility] [address] [place] [address] Carlos Joyner MD [address] [place] [address] Social History Tobacco Use Types Packs/Day [...] AM CDT Virtual Visit [facility] Urology [address] [place] [address] Carlos Joyner MD [address] [place] [address] 161975 09/13/2024 11:00 AM CDT Office Visit [facility] [address] [place] [address] [place] [address] [place] [address] 09/20/2024 11:00 AM CDT Office Visit [facility] [address] [place] [phone] Sugey Mccoy, SKY LINE YARDER [facility] [address] [facility] [address] [place], [place] 15[address] documented as of this encounter Visit Diagnoses Not on filedocumented in this encounter Care Teams Bridal Stylist Sales Consultant Relationship Specialty [place] [address] [place] [address] PCP - General 03/05/23 Carlos Joyner MD [address] [place] [address] 765585 Urology 12/09/19 Jadon Murray MD [facility] 2530 [facility] 550 [place], [place] [phone] Referring Physician Pediatric Surgery 12/09/19 Maru Villagomez, RN Registered Nurse 12/10/19 Ang Slade MD [address] [place] [address] Urology 04/24/20 Carlos Joyner MD [address] [place] [address] 782995 Assigned Surgical Provider 12/24/20 Ang Slade MD [address] [place] [address] 394 [place] [address] Urology 12/18/22 Lakshmi Wilhelm PA-C [address] [place] [address] 414765 Physician Geospatial Developer Urology 02/03/23 [place] [address] [facility] [place] [address] Assigned PCP 02/06/23 Alissa Perez PA-C [address] [place] [address] 609845 Physician Geospatial Developer Surgery 09/04/23 Lakshmi Wilhelm PA-C [address] [place] [address] 676185 Physician Geospatial Developer Urology 09/16/23 Aidee Valero PA-C [address] [place] [address] 489425 Assigned Musculoskeletal Provider 04/17/24 Tanisha Marlow 4120 [facility] [address] 03/30/24 documented as of this encounter
--- OUTSIDE RECORDS SUMMARY | 2024-08-03 23:22 | XMS_ITS | Encounter Summary ---
Author Organization [facility] Address [address] [place] [address] Care Team Providers Care Middle School Band Teacher Name Role Phone Carlos Joyner MD Unavailable [phone] Jadon Murray MD Unavailable [phone] Maru Villagomez RN Unavailable Unavailable Ignacia Duran MD Primary Care Provider Ang Slade MD Unavailable Carlos Joyner MD Unavailable +[phone] Annalise Orta PA-C Unavailable [phone] Ang Slade MD Unavailable Lakshmi Wilhelm-C Unavailable Heladio Willoughby MD Primary Care Provider [phone] Heladio Willoughby MD Unavailable Alissa Perez PA-C Unavailable [phone] Lakshmi Wilhelm PA-C Unavailable [phone] Aidee Valero PA-C Unavailable Encounter Details Date Type Department Care Team (Late st Contact Info) Description 10/01/2021 [facility] Clinic [address] [place] [address] Carlos Joyner MD [address] [place] [address] Social History Tobacco Use Types Packs/Day [...] Visit [facility]rology Clinic [address] [place] [address] Carlos Joyner MD [address] [place] [address] 09/13/2024 11:00 AM CDT Office Visit [facility] [address] [place] [phone] [place] [address] [place], [place] 1028668 09/20/2024 11:00 AM CDT Office Visit [facility] Sleep Center [address] [phone] Sugey Mccoy, DIVER PUMPER [address] 577304 documented as of this encounter Visit Diagnoses Not on filedocumented in this encounter Additional Health Concerns Infection Onset Date Last Indicated Resolved Time MRSA Comment:Added from external infection. Pt has had Staph infections but never MRSA from Care everywhere chart review. Removing MRSA 02.06.23 06/17/2019 02/06/2023 9:41 AM C DT documented as of this encounter Care Teams Middle School Band Teacher Relationship Specialty Start Date End Date Ignacia Duran MD PCP - General Pediatrics 01/20/20 03/04/23 [place] [address] [facility] [place] [address] PCP - General 03/05/23 Carlos Joyner MD [address] [place] [address] Urology 12/09/19 Jadon Murray MD [facility] [address] [address] Referring Physician Pediatric Surgery 12/09/19 Maru Villagomez, RN Registered Nurse 12/10/19 Ang Slade MD [address] [place] [address] Urology 04/24/20 Carlos Joyner MD [address] [place] [address] Assigned Surgical Provider 12/24/20 Annalise Orta PA-C 5200 [place] [address] Assigned Cancer Care Provider 05/13/21 11/01/22 Ang Slade MD [address] [place] [address] Urology 12/18/22 Lakshmi Wilhelm PA-C [address] [place] [address] Physician Supply Manager Urology 02/03/23 [place] [address] [place] [address] Assigned PCP 02/06/23 Alissa Perez PA-C [address] [place] [address] 118195 Physician Supply Manager Surgery 09/04/23 Lakshmi Wilhelm PA-C [address] [place] [address] 097645 Physician Supply Manager Urology 09/16/23 Aidee Valero PA-C [address] [place] [address] 982175 Assigned Musculoskeletal Provider 04/17/24 Tanisha Marlow 4120 [facility] [address] 03/30/24 documented as of this encounter
--- OUTSIDE RECORDS SUMMARY | 2024-08-03 23:22 | XMS_ITS | Patient Health Record ---
Author Organization [facility] Address [facility] [address] [place] [address] Care Team Providers Care Game Developer Name Role Phone Ignacia Duran MD Primary Care Provider [phone] ADOLFO PAZ MD Reason For Referral No Information Medications Medication SIG (Take, Route, Fr equency, Duration) Notes Start Date End Date Status Gentamicin Sulfate 40 MG/ML 30ML QHS Intravesically BID for 30 days 12/30/2019 Active Problems Problem Type SNOMED Code ICD Code Onset Dates Problem Status W/U Status Risk Notes Problem 877110815 Neurogenic bladd er (N31.9) Active confirmed Problem Hydrocephalus (120857004) Hydrocephalus (G91.9) Active confirmed Problem 18139289 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 Problem 932707525 Acute pyonephros is (N13.6) Active confirmed Problem 939297793 Obesity (BMI 30-39.9) (E66.9) Active confirmed Problem 99799953 Spina bifida of lumbosacral region with 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) Active confirmed Problem 88094777 Acute pyelonephritis (N10) Active confirmed Problem Sepsis (53055688) Sepsis, due to unspecified organism (A41.9) Active confirmed Problem 65055871 Bilateral nephrolithiasis (N20.0) Active confirmed Plan Of Treatment Pending Test Test Name Order Date UDS- Flow, ru, EMG, CMG w/UA/UC and mario tion 12/02/2019 Insurance Providers Payer Name Payer Address Payer Phone Subscriber Number Group Number Insured Name Patient Relationship to Insured Coverage Start Date Coverage End Date [facility] [address] [address] [place] [phone] [id number] Fe Escudero Child - Insured has Financial Responsibility [facility] [address] [address] [place] [address] [id number] Laina Escudero Self - patient is the insured
--- OUTSIDE RECORDS SUMMARY | 2024-08-03 23:22 | XMS_ITS | Encounter Summary ---
Author Organization [place] Address [address] [place] [address] Care Team Providers Care Policy Checker Name Role Phone Carlos Joyner MD Unavailable [phone] Jadon Murray MD Unavailable +[phone] Maru Villagomez RN Unavailable Unavailable Ignacia Duran MD Primary Care Provider Ang Slade MD Unavailable +[phone] Carlos Joyner MD Unavailable +[phone] Annalise Orta PA-C Unavailable +[phone] Ang Slade MD Unavailable +[phone] Lakshmi Wilhelm-C Unavailable +[phone] Heladio Willoughby MD Primary Care Provider [phone] Heladio Willoughby MD Unavailable Alissa Perez PA-C Unavailable [phone] Lakshmi Wilhelm PA-C Unavailable [phone] Aidee Valero PA-C Unavailable +[phone] Encounter Details Date Type Department Care Team (Late st Contact Info) Description 10/02/2021 [facility] [address] [place] [address] Analisa Palacio, RN Social History [...] Description 09/07/2024 8:30 AM CDT Virtual Visit [facility] [address] [place] [phone] Carlos Joyner MD [address] [place] [address] [id number] 09/13/2024 11:00 AM CDT Office Visit [facility] [id number] [place] [address] [place] [address] [place] [address] 09/20/2024 11:00 AM CDT Office Visit [facility] [address] [phone] Sugey Mccoy APRN [address] [place] [address] documented as of this encounter Visit Diagnoses Not on filedocumented in this encounter Additional Health Concerns Infection Onset Date Last Indicated Resolved Time MRSA Comment:Added from external infection. Pt has had Staph infections but never MRSA from Care everywhere chart review. Removing MRSA 9.14.23 06/17/2019 02/06/2023 9:41 AM C DT documented as of this encounter Care Teams Policy Checker Relationship Specialty Start Date End Date Ignacia Duran MD PCP - General Pediatrics 01/20/20 03/04/23 [place] [address] [place] [address] PCP - General 03/05/23 Carlos Joyner MD [address] [place] [address] Urology 12/09/19 Jadon Murray MD [facility] [address] [address] Referring Physician Pediatric Surgery 12/09/19 Maru Villagomez, RN Registered Nurse 12/10/19 Ang Slade MD [address] [address] Urology 04/24/20 Carlos Joyner MD [address] [place] [address] Assigned Surgical Provider 12/24/20 Annalise Orta PA-C 5200 [place] [address] Assigned Cancer Care Provider 05/13/21 11/01/22 Ang Slade MD [address] [address] Urology 12/18/22 Lakshmi Wilhelm PA-C 9 [place] [address] Physician Toe Trimmer Urology 02/03/23 [place] [address] [place] [address] Assigned PCP 02/06/23 Alissa Perez PA-C [address] [place] [address] Physician Toe Trimmer Surgery 09/04/23 Lakshmi Wilhelm PA-C [address] [place] [address] Physician Toe Trimmer Urology 09/16/23 Aidee Valero PA-C [address] [place] [address] 328765 Assigned Musculoskeletal Provider 04/17/24 Tanisha Marlow 4120 [facility] [address] 03/30/24 documented as of this encounter
--- OUTSIDE RECORDS SUMMARY | 2024-08-03 23:22 | XMS_ITS | Encounter Summary ---
Author Organization [place] Address [address] [place] [address] Care Team Providers Care Magnetic Resonance Imaging Director Name Role Phone Carlos Joyner MD Unavailable [phone] Jadno Murray MD Unavailable +[phone] Maru Villagomez RN Unavailable Unavailable Ignacia Duran MD Primary Care Provider Ang Slade MD Unavailable [phone] Carlos Joyner MD Unavailable [phone] Annalise Orta-C Unavailable Ang Slade MD Unavailable Lakshmi Wilhelm-C Unavailable [phone] Heladio Willoughby MD Primary Care Provider Heladio Willoughby MD Unavailable Alissa Perez PA-C Unavailable [phone] Lakshmi Wilhelm-C Unavailable [phone] Aidee Valero PA-C Unavailable [phone] Encounter Details Date Type Department Care Team (Late st Contact Info) Description 10/12/2021 Ifeanyi Peck [facility] [address] 5th [place] [address] Tanisha Coe PA-C [address] [place] [address] Social History Tobacco Use Types Packs/Day [...] Virtual Visit [facility] [address] [place] [phone] Carlos Joyner MD [address] [place] [address] 981645 09/13/2024 11:00 AM CDT Office Visit [address] [phone] [place] [address] [place], [place] [phone] 09/20/2024 11:00 AM CDT Office Visit [facility] [address] [phone] Sugey Mccoy, [employer] MANAGEMENT CONSULTANT [address] 288404 documented as of this encounter Visit Diagnoses Not on filedocumented in this encounter Additional Health Concerns Infection Onset Date Last Indicated Resolved Time MRSA Comment:Added from external infection. Pt has had Staph infections but never MRSA from Care everywhere chart review. Removing MRSA 02.06.23 06/17/2019 02/06/2023 9:41 AM C DT documented as of this encounter Care Teams Magnetic Resonance Imaging Director Relationship Specialty Start Date End Date Ignacia Duran MD PCP - General Pediatrics 01/20/20 03/04/23 [place] [address] [place] [address] PCP - General 03/05/23 Carlos Joyner MD [address] [place] [address] Urology 12/09/19 Jadon Murray MD [facility] [address] [address] Referring Physician Pediatric Surgery 12/09/19 Maru Villagomez, OTILIO Registered Nurse 12/10/19 Ang Slade MD [address] [place] [address] Urology 04/24/20 Carlos Joyner MD [address] [place] [address] Assigned Surgical Provider 12/24/20 Annalise Orta PA-C 5200 [place] [address] Assigned Cancer Care Provider 05/13/21 11/01/22 Ang Slade MD [address] [place] [address] Urology 12/18/22 Lakshmi Wilhelm PA-C [address] [place] [address] Physician Computer Installer Urology 02/03/23 [place] [address] [place] [address] Assigned PCP 02/06/23 Alissa Perez PA-C [address] [place] [address] 658765 Physician Computer Installer Surgery 09/04/23 Lakshmi Wilhelm PA-C [address] [place] [address] 847015 Physician Computer Installer Urology 09/16/23 Aidee Valero PA-C [address] [place] [address] 070445 Assigned Musculoskeletal Provider 04/17/24 Tanisha Marlow 4120 [facility] [address] 03/30/24 documented as of this encounter
--- OUTSIDE RECORDS SUMMARY | 2024-08-03 23:22 | XMS_ITS | Encounter Summary ---
Author Organization [place] Address [address] [place] [address] Care Team Providers Care Promotor Group Ticket Sales Name Role Phone Carlos Joyner MD Unavailable [phone] Jadon Murray MD Unavailable [phone] Maru Villagomez RN Unavailable Unavailable Ang Slade MD Unavailable [phone] Carlos Joyner MD Unavailable [phone] Ang Slade MD Unavailable [phone] Lakshmi Wilhelm-C Unavailable [phone] Heladio Willoughby MD Primary Care Provider [phone] Heladio Willoughby MD Unavailable Alissa Perez PA-C Unavailable [phone] Lakshmi Wilhelm-C Unavailable [phone] Aidee Valero PA-C Unavailable [phone] Encounter Details Date Type Department Care Team (Late st Contact Info) Description 08/18/2023 [facility] [address] [place] [address] Analisa Conner Social History Tobacco Use [...] Virtual Visit [facility] [address] [phone] Carlos Joyner MD [address] [place] [address] 09/13/2024 11:00 AM CDT Office Visit [facility] [address] [place] [address] [place] [address] [place] [address] 09/20/2024 11:00 AM CDT Office Visit [facility] [address] [place] [phone] Sugey Mccoy, [facility] [address] [place], [place] [address]E [address] [place], [place] 4[address] documented as of this encounter Visit Diagnoses Not on filedocumented in this encounter Care Teams Promotor Group Ticket Sales Relationship Specialty Start [place] [address] [place] [address] PCP - General 03/05/23 Carlos Joyner MD [address] [place] [address] Urology 12/09/19 Jadon Murray MD [facility] 2530 [facility] [address] [place] [address] Referring Physician Pediatric Surgery 12/09/19 Maru Villagomez, OTILIO Registered Nurse 12/10/19 Ang Slade MD [address] [place] [address] 842675 Urology 04/24/20 Carlos Joyner MD [address] [place] [address] Assigned Surgical Provider 12/24/20 Ang Slade MD [address] [address] Urology 12/18/22 Lakshmi Wilhelm PA-C [address] [place] [address] 300975 Physician Lens Gauger Urology 02/03/23 [place] [address] [place] [address] Assigned PCP 02/06/23 Alissa Perez PA-C [address] [place] [address] 508355 Physician Lens Gauger Surgery 09/04/23 Lakshmi Wilhelm PA-C [address] [place] [address] 760585 Physician Lens Gauger Urology 09/16/23 Aidee Valero PA-C [address] [place] [address] 248095 Assigned Musculoskeletal Provider 04/17/24 Tanisha Marlow 4120 [facility] [address] 03/30/24 documented as of this encounter
== END 2024-08-03 23:27 | disposition home or self-care (01) ==
PROVIDERS: Emergency Provider Family Medicine; PCP Pediatrics
DX: M25.512 Pain in left shoulder (principal)
CPT/HCPCS: 73030; 99283; 99284; A9270

== ENCOUNTER 2024-09-19 21:05 | Emergency (ER) | payer MEDICARE, MEDICAID, SELFPAY ==
--- OUTSIDE RECORDS SUMMARY | 2024-09-19 21:07 | XMS_ITS | Encounter Summary ---
Author Organization [place] Address [address] [place] [address] Care Team Providers Care Foiling Machine Adjuster Name Role Phone Carlos Joyner MD Unavailable [phone] Jadon Murray MD Unavailable + [phone] Maru Villagomez RN Unavailable Unavailable Ignacia Duran MD Primary Care Provider [phone] Ang Slade MD Unavailable [phone] Carlos Joyner MD Unavailable [phone] Ang Slade MD Unavailable [phone] Lakshmi Wilhelm-C Unavailable [phone] Heladio Willoughby MD Primary Care Provider [phone] Heladio Willoughby MD Unavailable Alissa Perez PA-C Unavailable [phone] Lakshmi Wilhelm-C Unavailable [phone] Aidee Valero PA-C Unavailable [phone] Encounter Details Date Type Department Care Team (Late st Contact Info) Description 01/07/2023 [facility] [address] [place] [address] Analisa Palacio, OTILIO Social History [...] on file Sexual Orientation Not on file Travel History Travel Start Travel End [place] 08/13/2024 08/19/2024 COVID-19 Exposure Response Date Recorded In the last 10 days, have yo u been in contact with someone who was confirmed or suspected to have Coronavirus/COVID-19? No / Unsure 12/11/2022 8:56 AM CDT documented as of this encounter Plan of Treatment Upcoming Encounters Date Type Department Care Team (Late st Contact Info) Description 09/20/2024 11:00 AM CDT Office Visit [address] [phone] Sugey Mccoy APRN [address] 663974 09/27/2024 1:40 PM CDT Ancillary Procedure [address] [place] [phone] [place] [address] [place] [address] 09/28/2024 10:30 AM CDT Therapy Visit [facility] 2200 [facility] [address] [place], [place] [phone] [place] [address] [place], [place] [phone] Daly Edmonds, OT [address] [place] [address] 197815 Scheduled Procedures Name Priority Associated Diagnoses Date/Ti me NEPHROLITHOTOMY, PERCUTANEOU S, USING HOLMIUM LASER Kidney stone documented as of this encounter Visit Diagnoses Not on filedocumented in this encounter Additional Health Concerns Infection Onset Date Last Indicated Resolved Time MRSA Comment:Added from external infection. Pt has had Staph infections but never MRSA from Care everywhere chart review. Removing MRSA 9.14.23 06/17/2019 02/06/2023 9:41 AM C DT documented as of this encounter Care Teams Foiling Machine Adjuster Relationship Specialty Start Date End Date Ignacia Duran MD PCP - General Pediatrics 01/20/20 03/04/23 [place] [address] [place] [address] PCP - General 03/05/23 Carlos Joyner MD [address] [place] [address] Urology 12/09/19 Jaodn Murray MD [facility] [address] [address] Referring Physician Pediatric Surgery 12/09/19 Maru Villagomez, OTILIO Registered Nurse 12/10/19 Ang Slade MD [address] 273835 Urology 04/24/20 Carlos Joyner MD [address] [place] [address] 017855 Assigned Surgical Provider 12/24/20 Ang Slade MD [address] [address] Urology 12/18/22 Lakshmi Wilhelm PA-C [address] [place] [address] 006715 Physician Pathology Laboratory Aides Teacher Urology 02/03/23 [place] [address] [place] [address] Assigned PCP 02/06/23 Alissa Perez PA-C [address] [place] [address] 313045 Physician Pathology Laboratory Aides Teacher Surgery 09/04/23 Lakshmi Wilhelm PA-C [address] [place] [address] 495385 Physician Pathology Laboratory Aides Teacher Urology 09/16/23 Aidee Valero PA-C [address] [place] [address] 622295 Assigned Musculoskeletal Provider 04/17/24 Tanisha Marlow 4120 [facility] [address] 03/30/24 documented as of this encounter
--- OUTSIDE RECORDS SUMMARY | 2024-09-19 21:07 | XMS_ITS | Encounter Summary ---
Author Organization [place] Address [address] [place] [address] Care Team Providers Care Admission Liaison Name Role Phone Carlos Joyner MD Unavailable [phone] Jadon Murray MD Unavailable + [phone] Maru Villagomez RN Unavailable Unavailable Ignacia Duran MD Primary Care Provider [phone] Ang Slade MD Unavailable [phone] Carlos Joyner MD Unavailable [phone] Ang Slade MD Unavailable [phone] Lakshmi Wilhelm-C Unavailable [phone] Heladio Willoughby MD Primary Care Provider [phone] Heladio Willoughby MD Unavailable Alissa Perez PA-C Unavailable [phone] Lakshmi Wilhelm-C Unavailable [phone] Aidee Valero PA-C Unavailable [phone] Encounter Details Date Type Department Care Team (Late st Contact Info) Description 01/06/2023 [facility] [address] [address] Lisette Mariee Social History Tobacco [...] file Travel History Travel Start Travel End [place] 08/13/2024 08/19/2024 COVID-19 Exposure Response Date Recorded In the last 10 days, have yo u been in contact with someone who was confirmed or suspected to have Coronavirus/COVID-19? No / Unsure 12/11/2022 8:56 AM CDT documented as of this encounter Plan of Treatment Upcoming Encounters Date Type Department Care Team (Late st Contact Info) Description 09/20/2024 11:00 AM CDT Office Visit [address] [phone] Sugey Mccoy APRN [address] 440[address] 09/27/2024 1:40 PM CDT Ancillary Procedure [address] [place] [phone] [place] [address] [place] [address] 09/28/2024 10:30 AM CDT Therapy Visit [facility] 2[address] [facility] [address] [place] [address] [place] [address] [place], [place] [phone] Daly Edmonds, OT [address] [place] [address] 401695 Scheduled Procedures Name Priority Associated Diagnoses Date/Ti [...] documented as of this encounter Care Teams Admission Liaison Relationship Specialty Start Date End Date Ignacia Duran MD PCP - General Pediatrics 01/20/20 03/04/23 [place] [address] [place] [address] PCP - General 03/05/23 Carlos Joyner MD [address] [place] [address] Urology 12/09/19 Jadon Murray MD [facility] 2530 [facility] 550 [place] [address] Referring Physician Pediatric Surgery 12/09/19 Maru Villagomez, OTILIO Registered Nurse 12/10/19 Ang Slade MD [address] 643665 Urology 04/24/20 Carlos Joyner MD [address] [place] [address] 878665 Assigned Surgical Provider 12/24/20 Ang Slade MD [address] [address] Urology 12/18/22 Lakshmi Wilhelm PA-C [address] [place] [address] 833015 Physician Wood Inspector Urology 02/03/23 [place] [address] [place] [address] Assigned PCP 02/06/23 Alissa Perez PA-C [address] [place] [address] 148355 Physician Wood Inspector Surgery 09/04/23 Lakshmi Wilhelm PA-C [address] [place] [address] 655895 Physician Wood Inspector Urology 09/16/23 Aidee Valero PA-C [address] [place] [address] 342925 Assigned Musculoskeletal Provider 04/17/24 Tanisha Marlow 4120 [facility] [address] 03/30/24 documented as of this encounter
--- OUTSIDE RECORDS SUMMARY | 2024-09-19 21:07 | XMS_ITS | Encounter Summary ---
Author Organization [place] Address [address] [place] [address] Care Team Providers Care Soccer Player Name Role Phone Carlos Joyner MD Unavailable [phone] Jadon Murray MD Unavailable [phone] Maru Villagomez RN Unavailable Unavailable Ang Slade MD Unavailable [phone] Carlos Joyner MD Unavailable +[phone] Ang Slade MD Unavailable +[phone] Lakshmi Wilhelm PA-C Unavailable [phone] Heladio Willoughby MD Primary Care Provider [phone] Heladio Willoughby MD Unavailable Alissa Perez PA-C Unavailable [phone] Lakshmi Wilhelm-C Unavailable [phone] Aidee Valero PA-C Unavailable +[phone] Encounter Details Date Type Department Care Team (Late st Contact Info) Description 06/15/2024 [facility] Adv[facility] [address] [place] [address] Sarika Calhoun MA Social History [...] permanent housing and does not include staying outside in a car, in a tent, in [...] file Travel History Travel Start Travel End [place] 08/13/2024 08/19/2024 documented as of this encounter Plan of Treatment Upcoming Encounters Date Type Department Care Team (Late st Contact Info) Description 09/20/2024 11:00 AM CDT Office Visit [address] [address] Sugey Mccoy, [facility] [address] [place] [address] [address] [place] [address] 09/27/2024 1:40 PM CDT Ancillary Procedure [address] [place] [phone] [place] [address] [place] [address] 09/28/2024 10:30 AM CDT Therapy Visit [facility] [address] [facility] [address] [place] [address] [place] [address] [place] [address] Daly Edmonds, OT 909 [place], [place] 401995 Scheduled Procedures Name Priority Associated Diagnoses Date/Ti me NEPHROLITHOTOMY, PERCUTANEOU S, USING HOLMIUM LASER Kidney stone documented as of this encounter Visit Diagnoses Not on filedocumented in this encounter Care Teams Soccer Player Relationship Specialty Start [place] [address] [place] [address] PCP - General 03/05/23 Carlos Joyner MD [address] [place] [address] Urology 12/09/19 Jadon Murray MD [facility] 25[address] [facility] [address] [place] [address] Referring Physician Pediatric Surgery 12/09/19 Maru Villagomez, RN Registered Nurse 12/10/19 Ang Slade MD [address] [place] [address] 394 [place], [place] 445645 Urology 04/24/20 Carlos Joyner MD 9 [place] [address] Assigned Surgical Provider 12/24/20 Ang Slade MD [address] [place] [address] 859355 Urology 12/18/22 Lakshmi Wilhelm PA-C [address] [place] [address] Physician Binder Selector Urology 02/03/23 [place] [address] [place] [address] Assigned PCP 02/06/23 Alissa Perez PA-C [address] [place] [address] Physician Binder Selector Surgery 09/04/23 Lakshmi Wilhelm PA-C [address] [place] [address] Physician Binder Selector Urology 09/16/23 Aidee Valero PA-C [address] [place] [address] Assigned Musculoskeletal Provider 04/17/24 Tanisha Marlow 4120 [facility] [address] 03/30/24 documented as of this encounter
--- OUTSIDE RECORDS SUMMARY | 2024-09-19 21:07 | XMS_ITS | Encounter Summary ---
Author Organization [place] Address [address] [place] [address] Care Team Providers Care Legal Secretary Receptionist Name Role Phone Carlos Joyner MD Unavailable +[phone] Jadon Murray MD Unavailable [phone] Maru Villagomez RN Unavailable Unavailable Ignacia Duran MD Primary Care Provider [phone] Carlos Joyner MD Unavailable +[phone] Ang Slade MD Unavailable +[phone] Ang Slade MD Unavailable +[phone] Carlos Joyner MD Unavailable +[phone] Annalise Orta PA-C Unavailable +[phone] Ang Slade MD Unavailable +[phone] Lakshmi Wilhelm-C Unavailable +[phone] Heladio Willoughby MD Primary Care Provider [phone] Heladio Willoughby MD Unavailable Alissa Perez PA-C Unavailable [phone] Lakshmi Wilhelm-C Unavailable +[phone] Aidee Valero PA-C Unavailable +[phone] Reason for Visit * Reason Onset Date Comments Call Back 08/01/2020 Miscommunication between urinary results Encounter Details Date Type Department Care Team (Late st Contact Info) Description 08/01/2020 Telephone [facility] [address] [place] [phone] Ang Slade MD 420 [facility] [address] [place] [address] Call Back (Miscommunication between urinary results) Social History Tobacco Use Types Packs/Day Years Used Date Smoking Tobacco: Never Smokeless Tobacco: Never Social Connection and Isolat ion Panel [NHANES] Answer Date Recorded Frequency of Communication w ith Friends and Family Not on file 07/16/2024 How often do you get togethe r with friends or relatives? More than three times a week 07/16/2024 Attends Sikh Services Not on file 07/16 Active Member of Clubs or Organizations Not on f ile 07/16/2024 Attends Club or Organization Meetings Not on antelmo e 07/16/2024 Marital Status Not on file 07/16/2024 PHQ-2 Answer Date Recorded PHQ-2 Score Incomplete 07/21/2024 [facility]at ional [facility] - Occupational [...] file Travel History Travel Start Travel End [place] 08/13/2024 08/19/2024 COVID-19 Exposure Response Date Recorded In the last 10 days, have yo u been in contact with someone who was confirmed or suspected to have Coronavirus/COVID-19? No / Unsure 02/26/2023 10:28 AM CDT documented as of this encounter Miscellaneous Notes * Telephone Encounter - Diego Sams - 08/01/2020 11:21 AM CST [facility] Phone Message May a detailed message be left on voicemail: yes Reason for Call: Other: Cristine with [facility] calling because pt's primary, , would like to speak with or a nurse regarding pt's urinary results. Reports that there is some miscommunication that she wants to clarify. Please call back. Action Taken: Message routed to: [facility] uro Travel Screening: Not Applicable NGUAL CUSTOMER SERVICE documented in this encounter Plan of Treatment Upcoming Encounters Date Type Department Care Team (Late st Contact Info) Description 09/20/2024 11:00 AM CDT Office Visit [address] [address] Sugey Mccoy, MELTER SUPERVISOR OXYGEN FURNACE [address] [id number] 09/27/2024 1:40 PM CDT Ancillary Procedure [address] [place] [phone] [place] [address] [place] [address] 09/28/2024 10:30 AM CDT Therapy Visit [facility] [address] [place] [address] [address] [place], [place] [phone] [place] [address] [address] [id number] Daly Edmonds, OT [address] [place], [place] 991435 Scheduled Procedures Name Priority Associated Diagnoses Date/Ti [...] documented as of this encounter Care Teams Legal Secretary Receptionist Relationship Specialty Start Date End Date Ignacia Duran MD PCP - General Pediatrics 01/20/20 03/04/23 [place] [address] [place] [address] PCP - General 03/05/23 Carlos Joyner MD [address] [place], [place] 045685 Urology 12/09/19 Jadon Murray MD [facility] 2530 [facility] [address] [place] [address] Referring Physician Pediatric Surgery 12/09/19 Maru Villagomez, RN Registered Nurse 12/10/19 Carlos Joyner MD [address] [place] [address] 244735 Assigned Surgical Provider 03/17/20 Ang Slade MD [address] [place] [address] 807725 Urology 04/24/20 Ang Slade MD [address] [place] [address] 821805 Assigned Surgical Provider 08/13/20 Carlos Joyner MD [address] [place] [address] 449265 Assigned Surgical Provider 12/24/20 Annalise Orta PA-C 5200 [place] [address] Assigned Cancer Care Provider 05/13/21 11/01/22 Ang Slade MD [address] [place] [address] 205205 Urology 12/18/22 Lakshmi Wilhelm PA-C [address] [place] [address] 530515 Physician Recycle Worker Urology 02/03/23 [place] [address] [place] [address] Assigned PCP 02/06/23 Alissa Perez PA-C [address] [place] [address] 511775 Physician Recycle Worker Surgery 09/04/23 Lakshmi Wilhelm PA-C [address] [place] [address] 365955 Physician Recycle Worker Urology 09/16/23 Aidee Valero PA-C [address] [place] [address] 867415 Assigned Musculoskeletal Provider 04/17/24 Tanisha Marlow 4120 [facility] [address] 03/30/24 documented as of this encounter
--- OUTSIDE RECORDS SUMMARY | 2024-09-19 21:07 | XMS_ITS | Encounter Summary ---
Author Organization [facility] Address [address] [place] [address] Care Team Providers Care Capture Manager Name Role Phone Carlos Joyner MD Unavailable [phone] Jadon Murray MD Unavailable [phone] Maru Villagomez RN Unavailable Unavailable Ignacia Duran MD Primary Care Provider [phone] Carlos Joyner MD Unavailable +[phone] Ang Slade MD Unavailable [phone] Ang Slade MD Unavailable +[phone] Carlos Joyner MD Unavailable +[phone] Annalise Orta PA-C Unavailable +[phone] Ang Slade MD Unavailable +[phone] Lakshmi Wilhelm-C Unavailable [phone] Heladio Willoughby MD Primary Care Provider [phone] Heladio Willoughby MD Unavailable Alissa Perez PA-C Unavailable [phone] Lakshmi Wilhelm-C Unavailable +[phone] Aidee Valero PA-C Unavailable +[phone] Reason for Visit * Reason Onset Date Comments Call Back 06/07/2020 Stent FYI Encounter Details Date Type Department Care Team (Late st Contact Info) Description 06/07/2020 [facility] [place] [id number] [facility] [address]th [place] [phone] Ang Slade MD 420 [facility] [address] [place], [place] 980985 Call Back (Stent ) Social History Tobacco Use Types Packs/Day [...] Answer Date Recorded PHQ-2 Score Incomplete 07/21/2024 [facility] of Occupat ional Health - Occupational [...] in an overnight care home, or couch-surfing.) No 07/16/2024 Are you [...] file Travel History Travel Start Travel End [place] 08/13/2024 08/19/2024 COVID-19 Exposure Response Date Recorded In the last 10 days, have yo u been in contact with someone who was confirmed or suspected to have Coronavirus/COVID-19? No / Unsure 02/26/2023 10:28 AM CDT documented as of this encounter Miscellaneous Notes * Telephone Encounter - Marcelina Medley LPN - 06/07/2020 3:31 PM CST Called them back message sent to lamar reyna F CONSTRUCTION INSPECTOR * Telephone Encounter - Zo Geiger - 06/07/2020 3:16 PM CST [facility] Phone Message May [...] Center ([facility]): Urology Travel Screening: Not Applicable F CONSTRUCTION INSPECTOR documented in this encounter Plan of Treatment Upcoming Encounters Date Type Department Care Team (Late st Contact Info) Description 09/20/2024 11:00 AM CDT Office Visit [address] [phone] Sugey Mccoy Jael, GANTRY CRANE OPERATOR ONLINE ADVERTISING DIRECTOR [address] [place], [place] 99[address] 09/27/2024 1:40 PM CDT Ancillary Procedure [address] [place] [phone] [place] [address] [facility] [place], [place] 0308[address] 09/28/2024 10:30 AM CDT Therapy Visit [facility] 2[address] [facility] [address] [place] [address] [place] [address] [place] [address] Daly Edmonds, OT [address] [place] [address] Scheduled Procedures Name Priority Associated Diagnoses Date/Ti me NEPHROLITHOTOMY, PERCUTANEOU S, USING HOLMIUM LASER Kidney stone documented as of this encounter Visit Diagnoses Not on filedocumented in this encounter Additional Health Concerns Infection Onset Date Last Indicated Resolved Time MRSA Comment:Added from external infection. Pt has had Staph infections but never MRSA from Care everywhere chart review. Removing MRSA .06/17/2019 02/06/2023 9:41 AM C DT documented as of this encounter Care Teams Capture Manager Relationship Specialty Start Date End Date Ignacia Duran MD PCP - General Pediatrics 01/20/20 03/04/23 [place] [address] [address] [place] [id number] PCP - General 03/05/23 Carlos Joyner MD [address]09 [place] [address] Urology 12/09/19 Jadon Murray MD [facility] 2530 [facility] [address] [place] [address] Referring Physician Pediatric Surgery 12/09/19 Maru Villagomez, RN Registered Nurse 12/10/19 Carlos Joyner MD [address] [place] [address] Assigned Surgical Provider 03/17/20 Ang Slade MD [address] [address] Urology 04/24/20 Ang Slade MD [address] [address] Assigned Surgical Provider 08/13/20 Carlos Joyner MD 9 [place] [address] Assigned Surgical Provider 12/24/20 Annalise Orta PA-C 5200 [place] [address] Assigned Cancer Care Provider 05/13/21 11/01/22 Ang Slade MD 420 [facility] [address] [place] [address] Urology 12/18/22 Lakshmi Wilhelm PA-C 9 [place] [address] Physician Group Home Counselor Urology 02/03/23 [place] [address] [facility] [place] [address] Assigned PCP 02/06/23 Alissa Perez PA-C [address] [place] [address] Physician Group Home Counselor Surgery 09/04/23 Lakshmi Wilhelm PA-C [address] [place] [address] Physician Group Home Counselor Urology 09/16/23 Aidee Valero PA-C [address] [place] [address] Assigned Musculoskeletal Provider 04/17/24 Tanisha Marlow 4120 [facility] [address] 03/30/24 documented as of this encounter
--- OUTSIDE RECORDS SUMMARY | 2024-09-19 21:07 | XMS_ITS | Encounter Summary ---
Author Organization [facility] Address [address] [place] [address] Care Team Providers Care Independent Driver Name Role Phone Carlos Joyner MD Unavailable [phone] Jadon Murray MD Unavailable [phone] Maru Villagomez RN Unavailable Unavailable Ignacia Duran MD Primary Care Provider Ang Slade MD Unavailable [phone] Carlos Joyner MD Unavailable +[phone] Annalise Orta PA-C Unavailable [phone] Ang Slade MD Unavailable [phone] Lakshmi Wilhelm-C Unavailable [phone] Heladio Willoughby MD Primary Care Provider Heladio Willoughby MD Unavailable Alissa Perez PA-C Unavailable [phone] Lakshmi Wilhelm-C Unavailable [phone] Aidee Valero PA-C Unavailable [phone] Reason for Visit * Reason Onset Date Comments Patient/info Update 02/26/2021 pt currently intubated, will nto be able to have uro surgery Encounter Details Date Type Department Care Team ([facility] Contact Info) Description 02/26/2021 [facility] [address] [place] [address] Carlos Joyner MD [address] [place] [address] Patient/info Update (pt currently intubated, will nto [...] Answer Date Recorded PHQ-2 Score Incomplete 07/21/2024 [facility] Occupat ional Health - Occupational Stress [...] file Travel History Travel Start Travel End [place] 08/13/2024 08/19/2024 COVID-19 Exposure Response Date Recorded [...] Lakshmi Chowdhury - 02/26/2021 2:07 PM CDT [facility] Call Center Phone Message May a detailed message be left on voicemail: yes Reason for Call: Other: Edith called in wanting to let Dr. Joyner and his team know [facility] date [facility]21. Please call back if thereare any questions at [phone] Action Taken: Message routed to: [facility] uro Travel Screening: Not Applicable documented in this encounter Plan of Treatment Upcoming Encounters Date Type Department Care Team (Late st Contact Info) Description 09/20/2024 11:00 AM CDT Office Visit [address] [address] Sugey Mccoy, FORCER MAKER EQUIPMENT APPLICATION SPECIALIST [address] [place], [place] [address] 09/27/2024 1:40 PM CDT Ancillary Procedure [facility] [address] [facility] [address] [place] [phone] [place] [address] [address] [place], [place] 9293868 09/28/2024 10:30 AM CDT Therapy Visit [facility] [address] [place] [address] [address] [place], [place] [phone] [place] [address] [address] [place], [place] [phone] Daly Edmonds, OT 909 [place] [address] Scheduled Procedures Name Priority Associated Diagnoses Date/Ti [...] documented as of this encounter Care Teams Independent Driver Relationship Specialty Start Date End Date Ignacia Duran MD PCP - General Pediatrics 01/20/20 03/04/23 [place] [address] [place] [address] PCP - General 03/05/23 Carlos Joyner MD [address] [place] [address] Urology 12/09/19 Jadon Murray MD [facility] 2530 [facility] [address] [place] [address] Referring Physician Pediatric Surgery 12/09/19 Maru Villagomez, OTILIO Registered Nurse 12/10/19 Ang Slade MD [address] [place] [address] Urology 04/24/20 Carlos Joyner MD [address] [place] [address] Assigned Surgical Provider 12/24/20 Annalise Orta PA-C 5[address] [place] [address] Assigned Cancer Care Provider 05/13/21 11/01/22 Ang Slade MD [address] [place] [address] Urology 12/18/22 Lakshmi Wilhelm PA-C [address] [place] [address]262 Physician Foundation Drill Operator Urology 02/03/23 [place] [address] [place] [address] Assigned PCP 02/06/23 Alissa Perez PA-C [address] [place] [address] Physician Foundation Drill Operator Surgery 09/04/23 Lakshmi Wilhelm PA-C 9 [place] [address] Physician Foundation Drill Operator Urology 09/16/23 Aidee Valero PA-C [address] [place] [address] Assigned Musculoskeletal Provider 04/17/24 Tanisha Marlow 4120 [facility] [id number] 03/30/24 documented as of this encounter
--- OUTSIDE RECORDS SUMMARY | 2024-09-19 21:07 | XMS_ITS | Encounter Summary ---
Author Organization [facility] Address [address] [place] [address] Care Team Providers Care Crime Specialist Name Role Phone Carlos Joyner MD Unavailable [phone] Jadon Murray MD Unavailable + [phone] Maru Villagomez RN Unavailable Unavailable Ignacia Duran MD Primary Care Provider [phone] Ang Slade MD Unavailable [phone] Carlos Joyner MD Unavailable [phone] Ang Slade MD Unavailable [phone] Lakshmi Wilhelm-C Unavailable [phone] Heladio Willoughby MD Primary Care Provider Heladio Willoughby MD Unavailable Alissa Perez PA-C Unavailable [phone] Lakshmi Wilhelm-C Unavailable [phone] Aidee Valero PA-C Unavailable [phone] Encounter Details Date Type Department Care Team (Late st Contact Info) Description 12/30/2022 [facility] [address] [place] [address] Analisa Palacio, OTILIO Social History [...] file Travel History Travel Start Travel End [place] 08/13/2024 08/19/2024 COVID-19 Exposure Response Date Recorded In the last 10 days, have yo u been in contact with someone who was confirmed or suspected to have Coronavirus/COVID-19? No / Unsure 12/11/2022 8:56 AM CDT documented as of this encounter Plan of Treatment Upcoming Encounters Date Type Department Care Team (Late st Contact Info) Description 09/20/2024 11:00 AM CDT Office Visit [address] [phone] Sugey Mccoy APRN [address] 433064 09/27/2024 1:40 PM CDT Ancillary Procedure [address] [place] [phone] [place] [address] [place] [address] 09/28/2024 10:30 AM CDT Therapy Visit [facility] 2[address] [facility] [address] [place], [place] [phone] [place] [address] [place], [place] [phone] Daly Edmonds, OT [address] [place] [address] 639495 Scheduled Procedures Name Priority Associated Diagnoses Date/Ti [...] documented as of this encounter Care Teams Crime Specialist Relationship Specialty Start Date End Date Ignacia Duran MD PCP - General Pediatrics 01/20/20 03/04/23 [place] [address] [place] [address] PCP - General 03/05/23 Carlos Joyner MD [address] [place] [address] Urology 12/09/19 Jadon Murray MD [facility] [address] [address] Referring Physician Pediatric Surgery 12/09/19 Maru Villagomez, OTILIO Registered Nurse 12/10/19 Ang Slade MD [address] 001675 Urology 04/24/20 Carlos Joyner MD [address] [place] [address] 611295 Assigned Surgical Provider 12/24/20 Ang Slade MD [address] [address] Urology 12/18/22 Lakshmi Wilhelm PA-C [address] [place] [address] 658525 Physician Communications Engineering Technician Urology 02/03/23 [place] [address] [place] [address] Assigned PCP 02/06/23 Alissa Perez PA-C [address] [place] [address] 819995 Physician Communications Engineering Technician Surgery 09/04/23 Lakshmi Wilhelm PA-C [address] [place] [address] 281565 Physician Communications Engineering Technician Urology 09/16/23 Aidee Valero PA-C [address] [place] [address] 611985 Assigned Musculoskeletal Provider 04/17/24 Tanisha Marlow 4120 [facility] [address] 03/30/24 documented as of this encounter
--- OUTSIDE RECORDS SUMMARY | 2024-09-19 21:08 | XMS_ITS | Encounter Summary ---
Author Organization [facility] Address [address] [place] [address] Care Team Providers Care Apprentice Technician Name Role Phone Carlos Joyner MD Unavailable [phone] Jadon Murray MD Unavailable [phone] Maru Villagomez RN Unavailable Unavailable Ang Slade MD Unavailable [phone] Carlos Joyner MD Unavailable +[phone] Ang Slade MD Unavailable +[phone] Lakshmi Wilhelm-C Unavailable [phone] Heladio Willoughby MD Primary Care Provider [phone] Heladio Willoughby MD Unavailable Alissa Perez PA-C Unavailable [phone] Lakshmi Wilhelm-C Unavailable [phone] Aidee Valero PA-C Unavailable [phone] Encounter Details Date Type Department Care Team (Latest Contact Info) Description 09/13/2024 Travel Social History Tobacco Use Types Packs/Day [...] 07/16/2024 Attends Buddhism Services Not on file 02/21 /2025 Active Member of Clubs or Organizations Not on f ile 07/16/2024 Attends Club or Organization Meetings Not on antelmo e 07/16/2024 Marital Status Not on file 07/16/2024 PHQ-2 Answer Date Recorded PHQ-2 Score 0 09/13/2024 [facility] of Occupat ional Health - Occupational Stress [...] file Travel History Travel Start Travel End [place] 08/13/2024 08/19/2024 documented as of this encounter Plan of Treatment Upcoming Encounters Date Type Department Care Team (Late st Contact Info) Description 09/20/2024 11:00 AM CDT Office Visit [facility] [address] [place] [phone] Darius Elvir[place]ia Elder, NESTOR MOSQUERA [address] [place], [place] [address] 09/27/2024 1:40 PM CDT Ancillary Procedure [address] [place] [address] [place] [address] [address] [place], [place] 27[address] 09/28/2024 10:30 AM CDT Therapy Visit [facility] 2200 [facility] [address] [place] [address] [place] [address] [address] [place], [place] [id number] Daly Edmonds, OT 909 [place] [address] Scheduled Procedures Name Priority Associated Diagnoses Date/Ti me NEPHROLITHOTOMY, PERCUTANEOU S, USING HOLMIUM LASER Kidney stone documented as of this encounter Visit Diagnoses Not on filedocumented in this encounter Care Teams Apprentice Technician Relationship Specialty Start [place] [address] [place] [address] PCP - General 03/05/23 Carlos Joyner MD 9 [place] [address] Urology 12/09/19 Jadon Murray MD [facility] 2530 [facility] 550 [place] [address] Referring Physician Pediatric Surgery 12/09/19 Maru Villagomez, RN Registered Nurse 12/10/19 Ang Slade MD 420 [facility] 394 [place], [place] 039[address] MD Urology 04/24/20 Carlos Joyner MD [address] [place] [address] 432365 Assigned Surgical Provider 12/24/20 Ang Slade MD 420 [facility] 394 [place], [place] 135815 MD Urology 12/18/22 Lakshmi Wilhelm PA-C [address] [place] [address] 313435 Physician Technical Illustrations Map Inker Urology 02/03/23 [place] [address] [place] [address] Assigned PCP 02/06/23 Alissa Perez PA-C [address] [place] [address] 172275 Physician Technical Illustrations Map Inker Surgery 09/04/23 Lakshmi Wilhelm PA-C [address] [place] [address] 653145 Physician Technical Illustrations Map Inker Urology 09/16/23 Aidee Valero PA-C 909 [place] [address] Assigned Musculoskeletal Provider 04/17/24 Tanisha Marlow 4120 [facility] [address] 03/30/24 documented as of this encounter
--- OUTSIDE RECORDS SUMMARY | 2024-09-19 21:08 | XMS_ITS | Encounter Summary ---
Author Organization [place] Address [address] [place] [address] Care Team Providers Care Sustainability Purchasing Agent Name Role Phone Carlos Joyner MD Unavailable [phone] Jadon Murray MD Unavailable [phone] Maru Villagomez RN Unavailable Unavailable Ang Slade MD Unavailable [phone] Carlos Joyner MD Unavailable [phone] Ang Slade MD Unavailable [phone] Lakshmi Wilhelm-C Unavailable [phone] Heladio Willoughby MD Primary Care Provider [phone] Heladio Willoughby MD Unavailable Alissa Perez PA-C Unavailable [phone] Lakshmi Wilhelm-C Unavailable [phone] Aidee Valero PA-C Unavailable [phone] Encounter Details Date Type Department Care Team (Late st Contact Info) Description 08/26/2024 [facility] [address] 4th [place] [address] Sarika Tomlinson Social History Tobacco Use Types Packs/Day Years [...] than three times a week 07/16/2024 Attends Yazidi Services Not on file 07/16 Active Member of Clubs or Organizations Not on f ile 07/16/2024 Attends Club or Organization Meetings Not on antelmo e 07/16/2024 Marital Status Not on file 07/16/2024 PHQ-2 Answer Date Recorded PHQ-2 Score Incomplete 07/21/2024 [facility] - Occupational Stress Questionnaire Answer Date Recorded [...] building, in an overnight fci, or couch-surfing.) No 07/16/2024 Are you worried [...] Travel Start Travel End [place] 08/13/2024 08/19/2024 documented as of this encounter Plan of Treatment Upcoming Encounters Date Type Department Care Team (Late st Contact Info) Description 09/20/2024 11:00 AM CDT Office Visit [address] [phone] Sugey Mccoy, PARKS WORKER [address] [place], [place] [address] 09/27/2024 1:40 PM CDT Ancillary Procedure [address] [place] [phone] [place] [address] [place], [place] 9[address]58[address] 09/28/2024 10:30 AM CDT Therapy Visit [facility] [address] [facility] [address] [place], [place] [phone] [place] [address] [place], [place] 2858368 Daly Edmonds, OT 9 [place] [address] Scheduled Procedures Name Priority Associated Diagnoses Date/Ti me NEPHROLITHOTOMY, PERCUTANEOU S, USING HOLMIUM LASER Kidney stone documented as of this encounter Visit Diagnoses Not on filedocumented in this encounter Care Teams Sustainability Purchasing Agent Relationship Specialty Start [place] [address] [place] [address] PCP - General 03/05/23 Carlos Joyner MD [address] [place] [address] Urology 12/09/19 Jadon Murray MD [facility] 2530 [facility] 550 [place] [address] Referring Physician Pediatric Surgery 12/09/19 Maru Villagomez, RN Registered Nurse 12/10/19 Ang Slade MD 420 [facility] 394 [place], [place] 500885 Urology 04/24/20 Carlos Joyner MD [address] [place] [address] 278995 Assigned Surgical Provider 12/24/20 Ang Slade MD [address] [place] [address] 394 [place], [place] 385265 Urology 12/18/22 Lakshmi Wilhelm PA-C [address] [place] [address] 024315 Physician Accounts Payable Bookkeeper Urology 02/03/23 [place] [address] [place] [address] Assigned PCP 02/06/23 Alissa Perez PA-C [address] [place] [address] 704765 Physician Accounts Payable Bookkeeper Surgery 09/04/23 Lakshmi Wilhelm PA-C [address] [place] [address] Physician Accounts Payable Bookkeeper Urology 09/16/23 Aidee Valero, [facility] 9 [place] [address] Assigned Musculoskeletal Provider 04/17/24 Tanisha Marlow 4120 [facility] [address] 03/30/24 documented as of this encounter
--- OUTSIDE RECORDS SUMMARY | 2024-09-19 21:08 | XMS_ITS | Encounter Summary ---
Author Organization [place] Address [address] [place] [address] Care Team Providers Care Recruiting Intern Name Role Phone Carlos Joyner MD Unavailable [phone] Jadon Murray MD Unavailable [phone] Maru Villagomez RN Unavailable Unavailable Ang Slade MD Unavailable [phone] Carlos Joyner MD Unavailable [phone] Ang Slade MD Unavailable [phone] Lakshmi Wilhelm PA-C Unavailable [phone] Heladio Willoughby MD Primary Care Provider [phone] Heladio Willoughby MD Unavailable Alissa Perez PA-C Unavailable [phone] Lakshmi Wilhelm PA-C Unavailable [phone] Aidee Valero PA-C Unavailable [phone] Reason for Visit * Reason Onset Date Comments Appointment 03/09/2024 Encounter Details Date Type Department Care Team (Late st Contact Info) Description 03/09/2024 Telephone [facility] [place] [address] [facility] [address] 4th [place] [address] Unknown, Doctor, MD Appointment Social [...] Answer Date Recorded PHQ-2 Score Incomplete 07/21/2024 [facility]at ional [facility] - Occupational Stress [...] building, in an overnight penitentiary, or couch-surfing.) No 07/16/2024 Are you worried [...] Travel Start Travel End [place] 08/13/2024 08/19/2024 documented as of this encounter Miscellaneous Notes * Telephone Encounter - KameronJaimie - 03/09/2024 11:06 AM CDT Appointment Reason for Call: Patient's guardian calling because they need to establish care with an ortho spineprovider. Patient has spina bifida - checking which provider she should see. documented in this encounter Plan of Treatment Upcoming Encounters Date Type Department Care Team (Late st Contact Info) Description 09/20/2024 11:00 AM CDT Office Visit [address] [phone] Sugey Mccoy, VICE INVESTIGATOR [facility] [address] [place] [address] 09/27/2024 1:40 PM CDT Ancillary Procedure [address] [place] [phone] [place] [address] [place], [place] 3030368 09/28/2024 10:30 AM CDT Therapy Visit [facility] 2200 [facility] [address] [place] [address] [place] [address] [place] 1133868 Daly Edmonds, OT 909 [place] [address] Scheduled Procedures Name Priority Associated Diagnoses Date/Ti me NEPHROLITHOTOMY, PERCUTANEOU S, USING HOLMIUM LASER Kidney stone documented as of this encounter Visit Diagnoses Not on filedocumented in this encounter Care Teams Recruiting Intern Relationship Specialty Start [place] [address] [place] [address] PCP - General 03/05/23 Carlos Joyner MD [address] [place] [address] Urology 12/09/19 Jadon Murray MD [facility] [address] [address] Referring Physician Pediatric Surgery 12/09/19 Maru Villagomez, OTILIO Registered Nurse 12/10/19 Ang Slade MD [address] [place] [address] Urology 04/24/20 Carlos Joyner MD [address] [place] [address] 992165 Assigned Surgical Provider 12/24/20 Ang Slade MD [address] [place] [address] Urology 12/18/22 Lakshmi Wilhelm PA-C [address] [place] [address] Physician Pet Care Worker Urology 02/03/23 [place] [address] [place] [address] Assigned PCP 02/06/23 Alissa Perez PA-C [address] [place] [address] 782195 Physician Pet Care Worker Surgery 09/04/23 Lakshmi Wilhelm PA-C [address] [place] [address] [phone] Physician Pet Care Worker Urology 09/16/23 Aidee Valero PA-C [address] [place] [address] [id number] Assigned Musculoskeletal Provider 04/17/24 Tanisha Marlow 4120 [facility] [address] 03/30/24 documented as of this encounter
--- OUTSIDE RECORDS SUMMARY | 2024-09-19 21:08 | XMS_ITS | Encounter Summary ---
Author Organization [place] Address [address] [place] [address] Care Team Providers Care Global Sales Manager Name Role Phone Carlos Joyner MD Unavailable [phone] Jadon Murray MD Unavailable [phone] Maru Villagomez RN Unavailable Unavailable Ang Slade MD Unavailable [phone] Carlos Joyner MD Unavailable [phone] Ang Slade MD Unavailable [phone] Lakshmi Wilhelm PA-C Unavailable Heladio Willoughby MD Primary Care Provider [phone] Heladio Willoughby MD Unavailable Alissa Perez PA-C Unavailable [phone] Lakshmi Wilhelm PA-C Unavailable [phone] Aidee Valero PA-C Unavailable [phone] Encounter Details Date Type Department Care Team (Late st Contact Info) Description 06/23/2024 [facility] [address] 4th [place] [address] Carlos Joyner MD [address] [place] [address] Social History Tobacco Use Types Packs/Day [...] file Travel History Travel Start Travel End [place] 08/13/2024 08/19/2024 documented as of this encounter Plan of Treatment Upcoming Encounters Date Type Department Care Team (Late st Contact Info) Description 09/20/2024 11:00 AM CDT Office Visit [address] [address] Sugey Mccoy, DRAWSTRING KNOTTER [address] [address] 09/27/2024 1:40 PM CDT Ancillary Procedure [address] [place] [address] [place] [address] [place] [address] 09/28/2024 10:30 AM CDT Therapy Visit [facility] 2[address] [facility] [address] [place] [address] [place] [address] [place] [address] Daly Edmonds, OT 909 [place], [place] 922675 Scheduled Procedures Name Priority Associated Diagnoses Date/Ti me NEPHROLITHOTOMY, PERCUTANEOU S, USING HOLMIUM LASER Kidney stone documented as of this encounter Visit Diagnoses Not on filedocumented in this encounter Care Teams Global Sales Manager Relationship Specialty Start [place] [address] [place] [address] PCP - General 03/05/23 Carlos Joyner MD [address] [place] [address] 467165 Urology 12/09/19 Jadon Murray MD [facility] 2530 [facility] 550 [place] [address] Referring Physician Pediatric Surgery 12/09/19 Maru Villagomez, OTILIO Registered Nurse 12/10/19 Ang Slade MD [address] [place] [address] 394 [place], [place] 217635 Urology 04/24/20 Carlos Joyner MD [address] [place] [address] 538265 Assigned Surgical Provider 12/24/20 Ang Slade MD [address] [place] [address] 096635 MD Urology 12/18/22 Lakshmi Wilhelm PA-C [address] [place] [address] Physician Tester Equipment Urology 02/03/23 [place] [address] [place] [address] Assigned PCP 02/06/23 Alissa Perez PA-C [address] [place] [address] 717585 Physician Tester Equipment Surgery 09/04/23 Lakshmi Wilhelm PA-C [address] [place] [address] 471155 Physician Tester Equipment Urology 09/16/23 Aidee Valero PA-C [address] [place] [address] 958015 Assigned Musculoskeletal Provider 04/17/24 Tanisha Marlow 4120 [facility] [address] 03/30/24 documented as of this encounter
--- OUTSIDE RECORDS SUMMARY | 2024-09-19 21:08 | XMS_ITS | Encounter Summary ---
Author Organization [place] Address [address] [place] [address] Care Team Providers Care Coat Operator Insulator Name Role Phone Carlos Joyner MD Unavailable [phone] Jadon Murray MD Unavailable [phone] Maru Villagomez RN Unavailable Unavailable Ang Slade MD Unavailable [phone] Carlos Joyner MD Unavailable [phone] Ang Slade MD Unavailable [phone] Lakshmi Wilhelm-C Unavailable [phone] Heladio Willoughby MD Primary Care Provider [phone] Heladio Willoughby MD Unavailable Alissa Perez PA-C Unavailable [phone] Lakshmi Wilhelm-C Unavailable [phone] Aidee Valero PA-C Unavailable [phone] Encounter Details Date Type Department Care Team (Late st Contact Info) Description 08/20/2024 [facility] Medical Advice [facility] [address] [place] [address] Mercy Feliz RN Social History Tobacco Use Types Packs/Day [...] Answer Date Recorded PHQ-2 Score Incomplete 07/21/2024 [facility] - Occupational Stress Questionnaire Answer Date [...] file Travel History Travel Start Travel End [place] 08/13/2024 08/19/2024 documented as of this encounter Plan of Treatment Upcoming Encounters Date Type Department Care Team (Late st Contact Info) Description 09/20/2024 11:00 AM CDT Office Visit [address] [phone] Sugey Mccoy, CLINICAL INFORMATICS MANAGER [facility] [address] [place] [address] [address] [place], [place] 807204 09/27/2024 1:40 PM CDT Ancillary Procedure [address] [place] [address] [place] [phone] [place] [address] [place], [place] 1136868 09/28/2024 10:30 AM CDT Therapy Visit [facility] 2[address] [facility] [address] [place], [place] [phone] [place] [address] [place], [place] 0615868 Daly Edmonds, OT 9 [place], [place] 984745 Scheduled Procedures Name Priority Associated Diagnoses Date/Ti me NEPHROLITHOTOMY, PERCUTANEOU S, USING HOLMIUM LASER Kidney stone documented as of this encounter Visit Diagnoses Not on filedocumented in this encounter Care Teams Coat Operator Insulator Relationship Specialty Start [place] [address] [place] [address] PCP - General 03/05/23 Carlos Joyner MD [address] [place] [address] Urology 12/09/19 Jadon Murray MD [facility] 2530 [facility] 550 [place] [address] Referring Physician Pediatric Surgery 12/09/19 Maru Villagomez, RN Registered Nurse 12/10/19 Ang Slade MD [address] [place] [address] 394 [place], [place] 868505 Urology 04/24/20 Carlos Joyner MD [address] [place] [address] 256575 Assigned Surgical Provider 12/24/20 Ang Slade MD [address] [place] [address] 394 [place], [place] 966985 Urology 12/18/22 Lakshmi Wilhelm PA-C [address] [place] [address] 019385 Physician Cooperer Urology 02/03/23 [place] [address] [place] [address] Assigned PCP 02/06/23 Alissa Perez PA-C [address] [place] [address] 743655 Physician Cooperer Surgery 09/04/23 Lakshmi Wilhelm PA-C [address] [place] [address] 613555 Physician Cooperer Urology 09/16/23 Aidee Valero, [facility] 9 [place] [address] Assigned Musculoskeletal Provider 04/17/24 Tanisha Marlow 4120 [facility] [address] 03/30/24 documented as of this encounter
--- OUTSIDE RECORDS SUMMARY | 2024-09-19 21:08 | XMS_ITS | Encounter Summary ---
Author Organization [place] Address [address] [place] [address] Care Team Providers Care Safety Supervisor Name Role Phone Carlos Joyner MD Unavailable [phone] Jadon Murray MD Unavailable [phone] Maru Villagomez RN Unavailable Unavailable Ang Slade MD Unavailable [phone] Carlos Joyner MD Unavailable [phone] Ang Slade MD Unavailable [phone] Lakshmi Wilhelm-C Unavailable [phone] Heladio Willoughby MD Primary Care Provider [phone] Heladio Willoughby MD Unavailable Alissa Perez PA-C Unavailable [phone] Lakshmi Wilhelm-C Unavailable [phone] Aidee Valero PA-C Unavailable [phone] Encounter Details Date Type Department Care Team (Latest Contact Info) Description 09/15/2024 Travel Social History Tobacco Use Types Packs/Day [...] 07/16/2024 Attends Mu-Ism Services Not on file 02/21 /2025 Active Member of Clubs or Organizations Not on f ile 07/16/2024 Attends Club or Organization Meetings Not on antelmo e 07/16/2024 Marital Status Not on file 07/16/2024 PHQ-2 Answer Date Recorded PHQ-2 Score 0 09/13/2024 [facility] [place] of Occupat ional Health - Occupational Stress [...] file Travel History Travel Start Travel End [place] 08/13/2024 08/19/2024 documented as of this encounter Plan of Treatment Upcoming Encounters Date Type Department Care Team (Late st Contact Info) Description 09/20/2024 11:00 AM CDT Office Visit [facility] [address] [place] [phone] Darius Elvirginia Elder, NESTOR MOSQUERA [address] [place], [place] 185894 09/27/2024 1:40 PM CDT Ancillary Procedure [address] [place] [address] [place] [address] [place] [place], [place] 7692468 09/28/2024 10:30 AM CDT Therapy Visit [facility] Rehabilitation [facility] 2200 [facility] [address] [place] [address] [place] [address] [address] [place], [place] [phone] Daly Edmonds, OT 909 [place] [address] Scheduled Procedures Name Priority Associated Diagnoses Date/Ti me NEPHROLITHOTOMY, PERCUTANEOU S, USING HOLMIUM LASER Kidney stone documented as of this encounter Visit Diagnoses Not on filedocumented in this encounter Care Teams Safety Supervisor Relationship Specialty Start [place] [address] [place] [address] PCP - General 03/05/23 Carlos Joyner MD 9 [place] [address] Urology 12/09/19 Jadon Murray MD [facility] [address] [facility] 550 [place] [address] Referring Physician Pediatric Surgery 12/09/19 Maru Villagomez, RN Registered Nurse 12/10/19 Ang Slade MD 420 [facility] 394 [place], [place] 621765 MD Urology 04/24/20 Carlos Joyner MD [address] [place] [address] 109505 Assigned Surgical Provider 12/24/20 Ang Slade MD 420 [facility] 394 [place], [place] 963395 MD Urology 12/18/22 Lakshmi Wilhelm PA-C [address] [place] [address] 125845 Physician Router Machine Operator Urology 02/03/23 [place] [address] [place] [address] Assigned PCP 02/06/23 Alissa Perez PA-C [address] [place] [address] 733735 Physician Router Machine Operator Surgery 09/04/23 Lakshmi Wilhelm PA-C [address] [place] [address] 794245 Physician Router Machine Operator Urology 09/16/23 Aidee Valero PA-C 909 [place] [address] Assigned Musculoskeletal Provider 04/17/24 Tanisha Marlow 4120 [facility] [address] 03/30/24 documented as of this encounter
--- OUTSIDE RECORDS SUMMARY | 2024-09-19 21:08 | XMS_ITS | Encounter Summary ---
Author Organization [place] Address [address] [place] [address]. [place] [address] Care Team Providers Care Ui Lead Developer Name Role Phone Carlos Joyner MD Unavailable [phone] Jadon Murray MD Unavailable [phone] Maru Villagomez RN Unavailable Unavailable Ang Slade MD Unavailable [phone] Carlos Joyner MD Unavailable [phone] Ang Slade MD Unavailable [phone] Lakshmi Wilhelm-C Unavailable [phone] Heladio Willoughby MD Primary Care Provider [phone] Heladio Willoughby MD Unavailable Alissa Perez PA-C Unavailable [phone] Lakshmi Wilhelm PA-C Unavailable [phone] Aidee Valero PA-C Unavailable [phone] Reason for Visit * Reason Onset Date Comments Forms 09/14/2024 Supplies Order Encounter Details Date Type Department Care Team (Late st Contact Info) Description 09/14/2024 Telephone [facility] [address] [place] [address] [place] [address] [place] [address] Forms (Supplies Order) Social History Tobacco Use Types Packs/Day Years [...] than three times a week 07/16/2024 Attends Adventist Services Not on file 07/16 Active Member of Clubs or Organizations Not on f ile 07/16/2024 Attends Club or Organization Meetings Not on antelmo e 07/16/2024 Marital Status Not on file 07/16/2024 PHQ-2 Answer Date Recorded PHQ-2 Score 0 09/13/2024 [facility] [place] of Occupat ional Health - Occupational Stress [...] file Travel History Travel Start Travel End [place] 08/13/2024 08/19/2024 documented as of this encounter Miscellaneous Notes * Telephone Encounter - Kasia Kang - 2024 7:48 AM CDT Faxed to [facility]. Kasia Kang Lead Surface Logging Systems Logger [facility] * Telephone Encounter - Heladio Willoughby MD - 2024 5:01 AM CDT Signed. Placed in outgoing box. Heladio [facility]oughby MD [facility] * Telephone Encounter - Kasia Kang - 09/14/2024 3:24 PM CDT Placed in provider's basket for review and signature. Kasia Kang Lead Surface Logging Systems Logger [facility] * Telephone Encounter - Eleno Valera - 09/14/2024 3:00 PM CDT Forms/Letter Request Type of form/letter: OTHER: [employer] Do we have the form/letter: Yes: help desk engineer in basket Who is the form from? [employer] Where did/will the form come from? form was faxed in When is form/letter needed by: RUPA How would you like the form/letter returned: [phone] Patient Notified form requests are processed in 5-7 business days:No Could we send this information to you in MyChart or would you prefer to receive a phone call?: No preference Okay to leave a detailed message?: No at Other phone number: FAX: [phone] Eleno Valera Patient Art Therapy Certified Supervisor [facility] documented in this encounter Plan of Treatment Upcoming Encounters Date Type Department Care Team (Late st Contact Info) Description 09/20/2024 11:00 AM CDT Office Visit [facility] [address] [phone] Sugey Mccoy, NESTOR [address] [place], [place] [address] 09/27/2024 1:40 PM CDT Ancillary Procedure [address] [place] [phone] [place] [address] [place] [address] 09/28/2024 10:30 AM CDT Therapy Visit [facility] Rehabilitation [facility] 2200 [facility] [address] [place] [address] [place] [address] [place], [place] [phone] Daly Edmonds, OT 909 [place] [address] Scheduled Procedures Name Priority Associated Diagnoses Date/Ti me NEPHROLITHOTOMY, PERCUTANEOU S, USING HOLMIUM LASER Kidney stone documented as of this encounter Visit Diagnoses Not on filedocumented in this encounter Care Teams Ui Lead Developer Relationship Specialty Start [place] [address] [facility] [place], [place] 9455068 PCP - General 03/05/23 Carlos Joyner MD [address] [place] [address] Urology 12/09/19 Jadon Murray MD [facility] 2530 [facility] 550 [place], [place] 568[address] Referring Physician Pediatric Surgery 12/09/19 Maru Villagomez, RN Registered Nurse 12/10/19 Ang Slade MD 420 [facility] 394 [place], [place] [address] Urology 04/24/20 Carlos Joyner MD [address] [place] [address] 978555 Assigned Surgical Provider 12/24/20 Ang Slade MD 420 [facility] 394 [place], [place] 944135 Urology 12/18/22 Lakshmi Wilhelm PA-C [address] [place] [address] 909855 Physician Alumni Relations Coordinator Urology 02/03/23 [place] [address] [facility] [address] Assigned PCP 02/06/23 Alissa Perez PA-C [address] [place] [address] 988875 Physician Alumni Relations Coordinator Surgery 09/04/23 Lakshmi Wilhelm PA-C 909 [place] [address] Physician Alumni Relations Coordinator Urology 09/16/23 Aidee Valero PA-C 909 [place] [address] Assigned Musculoskeletal Provider 04/17/24 Tanisha Marlow [facility]0 [facility] [address] 03/30/24 documented as of this encounter
--- OUTSIDE RECORDS SUMMARY | 2024-09-19 21:08 | XMS_ITS | Encounter Summary ---
Author Organization [place] Address [address] [place] [address] Care Team Providers Care Church Business Administrator Name Role Phone Carlos Joyner MD Unavailable [phone] Jadon Murray MD Unavailable [phone] Maru Villagomez RN Unavailable Unavailable Ang Slade MD Unavailable [phone] Carlos Joyner MD Unavailable [phone] Ang Slade MD Unavailable [phone] Lakshmi WilhelmC Unavailable [phone] Heladio Willoughby MD Primary Care Provider [phone] Heladio Willoughby MD Unavailable Alissa Perez PA-C Unavailable [phone] Lakshmi WilhelmC Unavailable [phone] Aidee ValeroC Unavailable [phone] Encounter Details Date Type Department Care Team (Late st Contact Info) Description 04/01/2024 [facility] [address] [place] [address] Aidee Valero PA-C [address] [place] [address] Social History Tobacco Use Types Packs/Day [...] Description 09/20/2024 11:00 AM CDT Office Visit [address] [address] Sugey Mccoy, ELECTRIC PILE DRIVER OPERATOR [address] [address] 09/27/2024 1:40 PM CDT Ancillary Procedure [address] [place] [address] [place] [address] [place] [address] 09/28/2024 10:30 AM CDT Therapy Visit [facility] [address] [facility] [address] [place] [address] [place] [address] [place] [address] Daly [place], OT 909 [place], [place] 7[address]15 Scheduled Procedures Name Priority Associated Diagnoses Date/Ti me NEPHROLITHOTOMY, PERCUTANEOU S, USING HOLMIUM LASER Kidney stone documented as of this encounter Visit Diagnoses Not on filedocumented in this encounter Care Teams Church Business Administrator Relationship Specialty Start [place] [address] [place] [address] PCP - General 03/05/23 Carlos Joyner MD [address] [place] [address] 993555 Urology 12/09/19 Jadon Murray MD [facility] 2530 [facility] 550 [place] [address] Referring Physician Pediatric Surgery 12/09/19 Maru Villagomez, OTILIO Registered Nurse 12/10/19 Ang Slade MD [address] [place] [address] 394 [place], [place] 929515 Urology 04/24/20 Carlos Joyner MD [address] [place] [address] 553505 Assigned Surgical Provider 12/24/20 Ang Slade MD [address] [place] [address] Urology 12/18/22 Lakshmi Wilhelm PA-C [address] [place] [address] Physician Cylinder Valve Repairer Urology 02/03/23 [place] [address] [place] [address] Assigned PCP 02/06/23 Alissa Perez PA-C [address] [place] [address] Physician Cylinder Valve Repairer Surgery 09/04/23 Lakshmi Wilhelm PA-C [address] [place] [address] 109965 Physician Cylinder Valve Repairer Urology 09/16/23 Aidee Valero PA-C [address] [place] [address] Assigned Musculoskeletal Provider 04/17/24 Tanisha Marlow 4120 [facility] [address] 03/30/24 documented as of this encounter
--- OUTSIDE RECORDS SUMMARY | 2024-09-19 21:08 | XMS_ITS | Encounter Summary ---
Author Organization [place] Address [address] [place] [address] Care Team Providers Care Food Supervisor Name Role Phone Carlos Joyner MD Unavailable [phone] Jadon Murray MD Unavailable [phone] Maru Villagomez RN Unavailable Unavailable Ang Slade MD Unavailable [phone] Carlos Joyner MD Unavailable [phone] Ang Slade MD Unavailable [phone] Lakshmi Wilhelm-C Unavailable [phone] Heladio Willoughby MD Primary Care Provider [phone] Heladio Willoughby MD Unavailable Alissa Perez PA-C Unavailable [phone] Lakshmi Wilhelm-C Unavailable [phone] Aidee Valero PA-C Unavailable [phone] Encounter Details Date Type Department Care Team (Latest Contact Info) Description 09/03/2024 Travel Social History Tobacco Use Types Packs/Day [...] than three times a week 07/16/2024 Attends Advent Services Not on file 02/21 /2025 Active Member of Clubs or Organizations Not on f ile 07/16/2024 Attends Club or Organization Meetings Not on antelmo e 07/16/2024 Marital Status Not on file 07/16/2024 PHQ-2 Answer Date Recorded PHQ-2 Score Incomplete 07/21/2024 [facility] [place] of Occupat ional Health - Occupational Stress [...] file Travel History Travel Start Travel End [place] 08/13/2024 08/19/2024 documented as of this encounter Plan of Treatment Upcoming Encounters Date Type Department Care Team (Late st Contact Info) Description 09/20/2024 11:00 AM CDT Office Visit [facility] [address] [place] [address] Darius [place] Elder, NESTOR MOSQUERA [address] [place], [place] [address] 09/27/2024 1:40 PM CDT Ancillary Procedure [address] [place] [address] [place] [address] [address] [place], [place] 0[address]47[address] 09/28/2024 10:30 AM CDT Therapy Visit [facility] 2[address] [facility] [address] [place] [address] [place] [address] [address] [place], [place] 4531268 Daly [place], OT 909 [place] [address] Scheduled Procedures Name Priority Associated Diagnoses Date/Ti me NEPHROLITHOTOMY, PERCUTANEOU S, USING HOLMIUM LASER Kidney stone documented as of this encounter Visit Diagnoses Not on filedocumented in this encounter Care Teams Food Supervisor Relationship Specialty Start [place] [address] [place] [address] PCP - General 03/05/23 Carlos Joyner MD 9 [place] [address] Urology 12/09/19 Jadon Murray MD [facility] 2530 [facility] 550 [place] [address] Referring Physician Pediatric Surgery 12/09/19 Maru Villagomez, RN Registered Nurse 12/10/19 Ang Slade MD 420 [facility] 394 [place], [place] 912755 MD Urology 04/24/20 Carlos Joyner MD [address] [place] [address] 177845 Assigned Surgical Provider 12/24/20 Ang Slade MD 420 [facility] 394 [place], [place] 726915 MD Urology 12/18/22 Lakshmi Wilhelm PA-C [address] [place] [address] 614655 Physician Beauty Advisor Urology 02/03/23 [place] [address] [place] [address] Assigned PCP 02/06/23 Alissa Perez PA-C [address] [place] [address] 878335 Physician Beauty Advisor Surgery 09/04/23 Lakshmi Wilhelm PA-C [address] [place] [address] 730775 Physician Beauty Advisor Urology 09/16/23 Aidee Valero PA-C 909 [place] [address] Assigned Musculoskeletal Provider 04/17/24 Tanisha Marlow 4120 [facility] [address] 03/30/24 documented as of this encounter
--- OUTSIDE RECORDS SUMMARY | 2024-09-19 21:08 | XMS_ITS | Encounter Summary ---
Author Organization [place] Address [address] [place] [address] Care Team Providers Care Pharmacy Specialist Name Role Phone Carlos Joyner MD Unavailable [phone] Jadon Murray MD Unavailable [phone] Maru Villagomez RN Unavailable Unavailable Ang Slade MD Unavailable [phone] Carlos Joyner MD Unavailable [phone] Ang Slade MD Unavailable [phone] Lakshmi Wilhelm-C Unavailable [phone] Heladio Willoughby MD Primary Care Provider [phone] Heladio Willoughby MD Unavailable Alissa Perez PA-C Unavailable [phone] Lakshmi Wilhelm-C Unavailable [phone] Aidee Valero PA-C Unavailable [phone] Reason for Visit * Reason Onset Date Comments Call Back 04/21/2024 Pt still having UTI Symptoms. They are wanting to see about getting a new antibiotic. Please call Nurse primary health organisation manager at [phone]. Please call Yamini. As they would like to get something done prior to the holiday. Thanks Encounter Details Date Type Department Care Team ([facility] st Contact Info) Description 04/21/2024 Telephone [facility] [address] 4th [place] [address] Carlos Joyner MD [address] [place] [address] Call Back (Pt still having UTI Symptoms. They are wanting to see about getting a new antibiotic. Please call Nurse primary health organisation manager at [phone]. Please call Yamini. As they would like [...] 07/16/2024 Attends Baptism Services Not on file 07/16 Active Member of Clubs or Organizations Not on f ile 07/16/2024 Attends Club or Organization Meetings Not on antelmo e 07/16/2024 Marital Status Not on file 07/16/2024 PHQ-2 Answer Date Recorded PHQ-2 Score Incomplete 07/21/2024 [facility] of Occupat ional Health - Occupational Stress [...] file Travel History Travel Start Travel End [place] 08/13/2024 08/19/2024 documented as of this encounter Miscellaneous Notes * Telephone Encounter - Yoli Benjamin - 04/21/2024 8:39 AM CST [facility] Call Center Phone Message May a detailed message be left on voicemail: no Reason for Call: Other: Pt still having UTI Symptoms. They are wanting to see about getting a new antibiotic. Please call Nurse primary health organisation manager at [phone]. Please call Yamini. As they would like to get something done prior to the holiday. Thanks Action Taken: Other: uro Travel Screening: Not Applicable Date of Service: N'S ACTIVITIES ADVISER documented in this encounter Plan of Treatment Upcoming Encounters Date Type Department Care Team (Late st Contact Info) Description 09/20/2024 11:00 AM CDT Office Visit [address] [address] Sugey Mccoy, NESTOR [address] [address] 09/27/2024 1:40 PM CDT Ancillary Procedure [address] [place] [phone] [place] [address] [place] [address] 09/28/2024 10:30 AM CDT Therapy Visit [facility] [address] [place] [address] [address] [place], [place] [phone] [place] [address] [place] [address] Daly [place], OT 909 [place], [place] [address] Scheduled Procedures Name Priority Associated Diagnoses Date/Ti me NEPHROLITHOTOMY, PERCUTANEOU S, USING HOLMIUM LASER Kidney stone documented as of this encounter Visit Diagnoses Not on filedocumented in this encounter Care Teams Pharmacy Specialist Relationship Specialty Start [place] [address] [place] [address] PCP - General 03/05/23 Carlos Joyner MD [address] [place] [address] Urology 12/09/19 Jadon Murray MD [facility] 2530 [facility] 550 [place] [address] Referring Physician Pediatric Surgery 12/09/19 Maru Villagomez, OTILIO Registered Nurse 12/10/19 Ang Slade MD [address] [place] [address] 394 [place] [address] Urology 04/24/20 Carlos Joyner MD [address] [place] [address] Assigned Surgical Provider 12/24/20 Ang Slade MD [address] [place] [address] Urology 12/18/22 Lakshmi Wilhelm PA-C [address] [place] [address] Physician Instructor Weaving Urology 02/03/23 [place] [address] [place] [address] Assigned PCP 02/06/23 Alissa Perez PA-C [address] [place] [address] Physician Instructor Weaving Surgery 09/04/23 Lakshmi Wilhelm PA-C [address] [place] [address] Physician Instructor Weaving Urology 09/16/23 Aidee Valero PA-C [address] [place] [address] Assigned Musculoskeletal Provider 04/17/24 Tanisha Marlow 4120 [facility] [address] 03/30/24 documented as of this encounter
--- OUTSIDE RECORDS SUMMARY | 2024-09-19 21:08 | XMS_ITS | Encounter Summary ---
Author Organization [place] Address [address] [place] [address] Care Team Providers Care Label Drier Name Role Phone Carlos Joyner MD Unavailable [phone] Jadon Murray MD Unavailable [phone] Maru Villagomez RN Unavailable Unavailable Ang Slade MD Unavailable [phone] Carlos Joyner MD Unavailable [phone] Ang Slade MD Unavailable [phone] Lakshmi Wilhelm-C Unavailable [phone] Heladio Willoughby MD Primary Care Provider [phone] Heladio Willoughby MD Unavailable Alissa Perez PA-C Unavailable [phone] Lakshmi Wilhelm-C Unavailable [phone] Aidee Valero PA-C Unavailable [phone] Encounter Details Date Type Department Care Team (Latest Contact Info) Description 09/08/2024 Travel Social History Tobacco Use Types Packs/Day [...] 07/16/2024 Attends Congregation Services Not on file 02/21 /2025 Active Member of Clubs or Organizations Not on f ile 07/16/2024 Attends Club or Organization Meetings Not on antelmo e 07/16/2024 Marital Status Not on file 07/16/2024 PHQ-2 Answer Date Recorded PHQ-2 Score Incomplete 07/21/2024 [facility] of Occupat ional Health - Occupational Stress [...] building, in an overnight residential, or couch-surfing.) No 07/16/2024 Are you worried [...] file Travel History Travel Start Travel End [place] 08/13/2024 08/19/2024 documented as of this encounter Plan of Treatment Upcoming Encounters Date Type Department Care Team (Late st Contact Info) Description 09/20/2024 11:00 AM CDT Office Visit [facility] [address] [place] [address] Darius Elvir[place]ia Elder, NESTOR MOSQUERA [address] [place], [place] [address] 09/27/2024 1:40 PM CDT Ancillary Procedure [address] [place] [address] [place] [address] [address] [place], [place] 20[address] 09/28/2024 10:30 AM CDT Therapy Visit [facility] 2[address] [facility] [address] [place] [address] [place] [address] [address] [place], [place] 6443068 Daly [place]s, OT 909 [place] [address] Scheduled Procedures Name Priority Associated Diagnoses Date/Ti me NEPHROLITHOTOMY, PERCUTANEOU S, USING HOLMIUM LASER Kidney stone documented as of this encounter Visit Diagnoses Not on filedocumented in this encounter Care Teams Label Drier Relationship Specialty Start [place] [address] [place] [address] PCP - General 03/05/23 Carlos Joyner MD 9 [place] [address] Urology 12/09/19 Jadon Murray MD [facility] [address] [facility] 550 [place] [address] Referring Physician Pediatric Surgery 12/09/19 Maru Villagomez, RN Registered Nurse 12/10/19 nAg Slade MD 420 [facility] 394 [place], [place] 582665 MD Urology 04/24/20 Carlos Joyner MD [address] [place] [address] 413005 Assigned Surgical Provider 12/24/20 Ang Slade MD 420 [facility] 394 [place], [place] 404295 MD Urology 12/18/22 Lakshmi Wilhelm PA-C [address] [place] [address] 220345 Physician Geophysical Prospecting Surveyor Urology 02/03/23 [place] [address] [place] [address] Assigned PCP 02/06/23 Alissa Perez PA-C [address] [place] [address] 314345 Physician Geophysical Prospecting Surveyor Surgery 09/04/23 Lakshmi Wilhelm PA-C [address] [place] [address] 282995 Physician Geophysical Prospecting Surveyor Urology 09/16/23 Adiee Valero PA-C 909 [place] [address] Assigned Musculoskeletal Provider 04/17/24 Tanisha Marlow 4120 [facility] [address] 03/30/24 documented as of this encounter
--- OUTSIDE RECORDS SUMMARY | 2024-09-19 21:08 | XMS_ITS | Encounter Summary ---
Author Organization [place] Address [address] [place] [address] Care Team Providers Care Director Of Purchasing Name Role Phone Carlos Joyner MD Unavailable [phone] Jadon Murray MD Unavailable [phone] Maru Villagomez RN Unavailable Unavailable Ang Slade MD Unavailable Carlos Joyner MD Unavailable [phone] Ang Slade MD Unavailable Lakshmi Wilhelm-C Unavailable Heladio Willoughby MD Primary Care Provider Heladio Willoughby MD Unavailable Alissa Perez PA-C Unavailable [phone] Lakshmi Wilhelm-C Unavailable Aidee Valero PA-C Unavailable Reason for Visit * Reason Onset Date Comments Pre Visit Planning - Done 09/07/2024 Encounter Details Date Type Department Care Team (Late st Contact Info) Description 09/07/2024 PRE VISIT [facility] [address] [place] [address] Carlos Joyner MD [address] [place] [address] Pre Visit Planning - Done Social [...] than three times a week 07/16/2024 Attends Hoahaoism Services Not on file 07/16 Active Member of Clubs or Organizations Not on f ile 07/16/2024 Attends Club or Organization Meetings Not on antelmo e 07/16/2024 Marital Status Not on file 07/16/2024 PHQ-2 Answer Date Recorded PHQ-2 Score Incomplete 07/21/2024 [facility] [place] of Occupat ional Health - Occupational Stress [...] Miscellaneous Notes * Telephone Encounter - Sarika Tomlinson - 08/26/2024 10:01 AM CDT Reason for visit: Follow up: horseshoe kidney and recurrent stones Relevant information: Last seen by Dr. Joyner on 09/23/23. Plan of care follow up in [address] scheduling in progress - see outgoing communications for updates. Records/imaging/labs/orders: IN [facility], CARE EVERYWHERE, AND PACS At Rooming: Standard rooming Sarika Tomlinson 08/26/2024 10:02 AM documented in this encounter Plan of Treatment Upcoming Encounters Date Type Department Care Team (Late st Contact Info) Description 09/20/2024 11:00 AM CDT Office Visit [address] [address] Sugey Mccoy, PUBLIC HEALTH ENGINEER TEACHER OF THE EMOTIONALLY DISTURBED [address] [place] [address] [address] [place], [place] 705084 09/27/2024 1:40 PM CDT Ancillary Procedure [address] [place] [address] [place] [address] [place] [address] 09/28/2024 10:30 AM CDT Therapy Visit [facility] [address] [place] [address] [place] [address] [facility] [place] [address] Daly [place]s, OT 909 [place], [place] 7928[address] Scheduled Procedures Name Priority Associated Diagnoses Date/Ti me NEPHROLITHOTOMY, PERCUTANEOU S, USING HOLMIUM LASER Kidney stone documented as of this encounter Visit Diagnoses Not on filedocumented in this encounter Care Teams Director Of Purchasing Relationship Specialty Start [place] [address] [address] [place], [place] 9704768 PCP - General 03/05/23 Carols Joyner MD [address] [place] [address] Urology 12/09/19 Jadon Murray MD [facility] 2530 [facility] 550 [place] [address] Referring Physician Pediatric Surgery 12/09/19 Maru Villagomez, RN Registered Nurse 12/10/19 Ang Slade MD 420 [facility] 394 [place] [address] Urology 04/24/20 Carlos Joyner MD 9 [place] [address] Assigned Surgical Provider 12/24/20 Ang Slade MD [address] [place] [address] 797415 Urology 12/18/22 Lakshmi Wilhelm PA-C [address] [place] [address] Physician Network Engineering Advisor Urology 02/03/23 [place] [address] [place] [address] Assigned PCP 02/06/23 Alissa Perez PA-C [address] [place] [address] Physician Network Engineering Advisor Surgery 09/04/23 Lakshmi Wilhelm PA-C [address] [place] [address] Physician Network Engineering Advisor Urology 09/16/23 Aidee Valero PA-C [address] [place] [address] Assigned Musculoskeletal Provider 04/17/24 Tanisha Marlow 4120 [facility] [address] 03/30/24 documented as of this encounter
--- OUTSIDE RECORDS SUMMARY | 2024-09-19 21:08 | XMS_ITS | Encounter Summary ---
Author Organization [place] Address [address] [place] [address] Care Team Providers Care Illuminator Name Role Phone Carlos Joyner MD Unavailable [phone] Jadon Murray MD Unavailable [phone] Maru Villagomez RN Unavailable Unavailable Ang Slade MD Unavailable [phone] Carlos Joyner MD Unavailable [phone] Ang Slade MD Unavailable [phone] Lakshmi Wilhelm-C Unavailable Heladio Willoughby MD Primary Care Provider [phone] Heladio Willoughby MD Unavailable Alissa Perez PA-C Unavailable [phone] Lakshmi Wilhelm PA-C Unavailable [phone] Aidee Valero PA-C Unavailable [phone] Encounter Details Date Type Department Care Team (Late st Contact Info) Description 08/26/2024 Telephone [facility] Urology Clinic [address] 4th [place] [address] Carlos Joyner MD [address] [place] [address] Social History Tobacco Use Types Packs/Day [...] than three times a week 07/16/2024 Attends Restoration Services Not on file 07/16 Active Member of Clubs or Organizations Not on f ile 07/16/2024 Attends Club or Organization Meetings Not on antelmo e 07/16/2024 Marital Status Not on file 07/16/2024 PHQ-2 Answer Date Recorded PHQ-2 Score Incomplete 07/21/2024 [facility] of Occupat ional Health - [...] file Travel History Travel Start Travel End [place] 08/13/2024 08/19/2024 documented as of this encounter Miscellaneous Notes * Telephone Encounter - Rosita Jhaveri - 08/26/2024 2:19 PM CDT Left Voicemail (1st Attempt) for the patient to call back and schedule the following: Appointment type: imaging Provider: imaging Return date: prior to 09/07 Specialty phone number: [phone] (imaging) * Telephone Encounter - Rosita Jhaveri - 08/26/2024 2:18 PM CDT ----- Message from Sarika Jean sent at 08/26/2024 10:03 AM CDT ----- Regarding: Imaging Appointment before 09/07/24 Mary, Please kindly reach out to this patient to help schedule an imaging appointment before the patients09/07/[address] Joyner Order details: CT Abdomen Pelvis w/o Contrast [[id number]] (Order [id number]) Thank you for your help documented in this encounter Plan of Treatment Upcoming Encounters Date Type Department Care Team (Late st Contact Info) Description 09/20/2024 11:00 AM CDT Office Visit [address] [address] Sugey Mccoy, NESTOR [address] 3296[address] 09/27/2024 1:40 PM CDT Ancillary Procedure [address] [place] [address] [place] [address] [place] [address] 09/28/2024 10:30 AM CDT Therapy Visit [facility] [address] [place] [address] [address] [place], [place] [phone] [place] [address] [place] [address] Daly [place]s, OT 909 [place], [place] [address] Scheduled Procedures Name Priority Associated Diagnoses Date/Ti me NEPHROLITHOTOMY, PERCUTANEOU S, USING HOLMIUM LASER Kidney stone documented as of this encounter Visit Diagnoses Not on filedocumented in this encounter Care Teams Illuminator Relationship Specialty Start [place] [address] [place] [address] PCP - General 03/05/23 Carlos Joyner MD [address] [place] [address] Urology 12/09/19 Jadon Murray MD [facility] 2530 [facility] 550 [place] [address] Referring Physician Pediatric Surgery 12/09/19 Maru Villagomez, OTILIO Registered Nurse 12/10/19 Ang Slade MD [address] [place] [address] 394 [place], [place] 95[address] Urology 04/24/20 Carlos Joyner MD [address] [place] [address] Assigned Surgical Provider 12/24/20 Ang Slade MD [address] [place] [address] Urology 12/18/22 Lakshmi Wilhelm PA-C [address] [place] [address] Physician Sinter Machine Operator Urology 02/03/23 [place] [address] [place] [address] Assigned PCP 02/06/23 Alissa Perez PA-C [address] [place] [address] Physician Sinter Machine Operator Surgery 09/04/23 Lakshmi Wilhelm PA-C [address] [place] [address] Physician Sinter Machine Operator Urology 09/16/23 Aidee Valero PA-C [address] [place] [address] Assigned Musculoskeletal Provider 04/17/24 Tanisha Marlow 4120 [facility] [address] 03/30/24 documented as of this encounter
--- OUTSIDE RECORDS SUMMARY | 2024-09-19 21:08 | XMS_ITS | Encounter Summary ---
Author Organization [facility] Address [address] [place] [address] Care Team Providers Care Biological Photographer Name Role Phone Carlos Joyner MD Unavailable [phone] Jadon Murray MD Unavailable [phone] Maru Villagomez RN Unavailable Unavailable Ang Slade MD Unavailable [phone] Carlos Joyner MD Unavailable [phone] Ang Slade MD Unavailable [phone] Lakshmi Wilhelm-C Unavailable [phone] Heladio Willoughby MD Primary Care Provider [phone] Heladio Willoughby MD Unavailable Alissa Perez PA-C Unavailable [phone] Lakshmi Wilhelm-C Unavailable [phone] Aidee Valero PA-C Unavailable [phone] Reason for Referral * Rehab Therapy Physical Therapy (Routine: Next available opening) - Pending Review Specialty Diagnoses / Procedures Referred By Contabran t Referred To Contact Diagnoses Thoracic spina bifida, unspecified hydrocephalus presence (H[place] [address] [place] [address] Phone: tel: fax: Other External Hospital (IP) [address] [place] [address] Phone: tel: Referral ID Status Reason Start Date Expiration Date V isits Requested Visits Authorized [id number] Pending Review 09/13/2024 09/13/2025 1 1 Question Answer Course of Action: Evaluation and Treatment Specialty Services: Pool Therapy ([place] Only) Patient Scheduling Instructions: [facility] will call you to coordinate your care as prescribed by your provider. If you don't hear from a risk control field representative within 2 business days, please call . Comments Please be aware that coverage of these services is subject to the terms and limitations of your health insurance plan. Call member services at your health plan with any benefit or coverage questions. Pool therapy request: Please fax referral to [facility] Location: [address] [place] [id number] [facility] will call you to coordinate your care as prescribed by your provider. If you don't hear from a risk control field representative within 2 business days, please call . * Diagnostic Imaging Ultrasound (Routine) - Pending Review Specialty Diagnoses / Procedures Referred By Charli sylvester Referred To Contact Radiology. Diagnoses Horseshoe kidney with renal calculus Procedures US Pelvic Complete [place] [address] [place] [address] Phone: tel: fax: Referral ID Status Reason Start Date Expiration Date V isits Requested Visits Authorized [id number] Pending Review 09/13/2024 09/13/2025 1 1 Reason for Visit * Reason Comments IUD Encounter Details Date Type Department Care Team (Late st Contact Info) Description 09/13/2024 11:00 AM CDT Office Visit [facility] [address] [id number] [place] [address] [place] [address] Screening for cervical cancer (Primary Dx); Horseshoe kidney with renal calculus; Encounter for IUD insertion; Thoracic spina bifida, unspecified hydrocephalus presence (H); Wheelchair dependence Social History Tobacco Use Types Packs/Day Years [...] 07/16/2024 Attends Gnosticism Services Not on file 07/16 Active Member of Clubs or Organizations Not on f ile 07/16/2024 Attends Club or Organization Meetings Not on antelmo e 07/16/2024 Marital Status Not on file 07/16/2024 PHQ-2 Answer Date Recorded PHQ-2 Score 0 09/13/2024 [facility] - Occupational [...] building, in an overnight assisted, or couch-surfing.) No 07/16/2024 Are you worried [...] file Travel History Travel Start Travel End [place] 08/13/2024 08/19/2024 documented as of this encounter Last Filed Vital Signs Vital Sign Reading Time Taken Comments Blood Pressure 118/77 09/13/2024 11:15 AM CDT Pulse 75 09/13/2024 11:15 AM CDT Temperature 36.7 C (98.1 F) 09/13/2024 11:15 AM CDT Respiratory Rate 16 09/13/2024 11:15 AM CDT Oxygen Saturation 98% 09/13/2024 11:15 AM CDT Inhaled Oxygen Concentration - - Weight - - Height - - Body Mass Index - - documented in this encounter Progress Notes * Heladio Willoughby MD - 09/13/2024 11:00 AM CDT Assessment & Plan Screening for cervical cancer Obtained pap smear without difficulty. (Completed in wheelchair with two MAs to assist in holding legs in position) - Pap Screen Only - Recommended Age 21 - 24 Years Horseshoe kidney with renal calculus Encounter for IUD insertion Here for IUD insertion but upon further review of problem list, does have horseshoe kidney. Small cervix on genital exam today. Plan to obtain US pelvis first to evaluate for any congenital anomalies prior to IUD placement. - US Pelvic Complete with Transvaginal - HCG qualitative Thoracic spina bifida, unspecified hydrocephalus presence (H) Wheelchair dependence Requesting referral for pool therapy at [facility] in [place]. Placed. - Physical Therapy Avionics Engineer Referral BMI Estimated body mass index is 28.22 kg/m?? as calculated from the following: Height as of 03/30/24: 1.473 m (4' 10). Weight as of 03/30/24: 61.2 kg (135 lb). Follow up pending labs/image Heladio Willoughby MD [facility] 09/13/2024 Yared Marina is a 23 year old, presenting for the following health issues: IUD HPI Pap smear Needs pap smear completed today Interested in IUD insertion Does have hx of horseshoe kidney. No prior US pelvis before Objective BP 118/77 (BP Location: Left arm) Pulse 75 Temp 98.1 ??F (36.7 ??C) Resp 16 SpO2 98% There is no height or weight on file to calculate BMI. Physical Exam GENERAL: healthy, alert and no distress HEAD: Normocephalic, atraumatic. EYES: Normal conjunctivae, sclera. RESP: Normal respiratory effort. : Normal external genitalia. Normal vaginal vault. Cervix appears quite small, approx 2cm. MSK: no gross musculoskeletal defects noted. SKIN: no suspicious lesions or rashes. NEURO: CNII-XII grossly intact. No focal deficits. PSYCH: Groomed, dressed appropriately for weather. Normal mood with consistent affect. Signed Electronically by: Heladio Willoughby MD documented in this encounter Plan of Treatment Upcoming Encounters Date Type Department Care Team (Late st Contact Info) Description 09/20/2024 11:00 AM CDT Office Visit [address] [address] Sugey Mccoy, OLIVER FILTER OPERATOR DRUGLESS PHYSICIAN [address] [place] [address] [address] [place], [place] [id number] 09/27/2024 1:40 PM CDT Ancillary Procedure [address] [place] [address] [place] [address] [place] [address] 09/28/2024 10:30 AM CDT Therapy Visit [facility] [address] [facility] [address] [place] [address] [place] [address] [facility] [place] [address] Daly Edmonds, OT [address] [place] [address] Scheduled Orders Name Type Priority Associated Diagnoses Orde r Schedule US Pelvic Complete with Transvaginal Imaging Routine Horseshoe kidney with renal calculus Expected: 09/13/2024 (Approximate), Expires: 09/13/2025 Scheduled Procedures Name Priority Associated Diagnoses Date/Ti me NEPHROLITHOTOMY, PERCUTANEOU S, USING HOLMIUM LASER Kidney stone Scheduled Referrals Name Type Priority Associated Diagnoses Orde r Schedule Physical Therapy Avionics Engineer Referral Referral Routine: Next available opening Thoracic spina bifida, unspecified hydrocephalus presence (H) Expected: 09/13/2024 (Approximate), Expires: 09/13/2025 documented as of this encounter Procedures Procedure Name Priority Date/Time Associated Diagnosis Comments GYNECOLOGIC CYTOLOGY Routine 09/13/2024 12:04 PM CDT Screening for cervical cancer RBC AND PLATELET MORPHOLOGY Routine 09/13/2024 11:03 AM CDT CBC WITH PLATELETS AND DIFFERENTIAL Routine 09/13/2024 11:03 AM CDT CBC WITH PLATELETS & DIFFERENTIAL Routine 09/13/2024 11:03 AM CDT VITAMIN D DEFICIENCY SCREENING Routine 09/13/2024 11:03 AM CDT LIPID REFLEX TO DIRECT LDL PANEL Routine 09/13/2024 11:03 AM CDT Thoracic spina bifida, unspecified hydrocephalus presence (H) Wheelchair dependence HCG QUALITATIVE Routine 09/13/2024 11:03 AM CDT Encounter for IUD insertion COMPREHENSIVE METABOLIC PANEL Routine 09/13/2024 11:03 AM CDT documented in this encounter Results * Pap Screen Only - Recommended Age 21 - 24 Years (09/13/2024 12:04 PM CDT) Interpretation Negative for Intraepithelial Lesion or Malignancy (NILM) 2024 1:59 PM CDT [facility] Comment Papanicolaou Test Limitations: Cervical cytology is a screening test with limited sensitivity, and regular screening is critical for cancer prevention. Pap tests are primarily effective for the diagnosis/prevent ion of squamous cell carcinoma, not adenocarcinoma or other cancers. 2024 1:59 PM CDT [facility] Specimen Adequacy Satisfactory for evaluation, endocervical/mendoza sformation zone component present 2024 1:59 PM CDT [facility] Clinical Information none 2024 1:59 PM CDT [facility] Reflex Testing No 2024 1:59 PM CDT [facility] Previous Abnormal? No 2024 1:59 PM CDT [facility] Performing Labs The technical component of this testing was completed at [facility]. Stain controls for all stains resulted within this report have been reviewed and show appropriate reactivity. 2024 1:59 PM CDT [facility] Brushing ENDOCERVICAL STRUCTURE / Unknown Non-blood Collection / Unknown 09/13/2024 12:04 PM CDT 09/13/2024 12:07 PM CDT us Heladio COLLINS - JOHN GALLEGOS Final Result [facility] [address] [facility], Room [address] [place] [phone] * (ABNORMAL) RBC and Platelet Morphology (09/13/2024 11:03 AM CDT) RBC Morphology Confirmed RBC Indices 09/13/2024 6:11 PM CDT [facility] Platelet Assessment Platelets Clumped(A) Automated Count Confirmed. Platelet morphology is normal. LINDA 09/13/2024 6:11 PM CDT [facility] Blood BLOOD SPECIMEN / Unknown Venipuncture / Unknown 09/13/2024 11:03 AM CDT 09/13/2024 11:03 AM CDT us Heladio Willoughby MD LAB - BLOOD ORDERABLES Final Res ult [facility] [address] Lab (1st floor, no room number) [place] [address] * CBC with platelets and differential (09/13/2024 11:03 AM CDT) WBC Count 8.0 4.0 - 11.0 10e3/uL 09/13/2024 6:10 PM CDT [facility] RBC Count 4.75 3.80 - 5.20 10e6/uL 09/13/2024 6:10 PM CDT [facility] Hemoglobin 14.8 11.7 - 15.7 g/dL 09/13/2024 6:10 PM CDT [facility] Hematocrit 43.1 35.0 - 47.0 % 09/13/2024 6:10 PM CDT [facility] MCV 91 78 - 100 fL 09/13/2024 6:10 PM CDT [facility] MCH 31.2 26.5 - 33.0 pg 09/13/2024 6:10 PM CDT [facility] MCHC 34.3 31.5 - 36.5 g/dL 09/13/2024 6:10 PM CDT [facility] RDW 12.5 10.0 - 15.0 % 09/13/2024 6:10 PM CDT [facility] Platelet Count 09/13/2024 6:10 PM CDT [facility] Comment: Platelets clumped. Platelet count not available. This is a corrected result. Previous result was 173 10e3/uL on 09/13/2024 at 5:52 PM CDT % Neutrophils 62 % 09/13/2024 6:10 PM CDT [facility] % Lymphocytes 28 % 09/13/2024 6:10 PM CDT [facility] % Monocytes 7 % 09/13/2024 6:10 PM CDT [facility] % Eosinophils 2 % 09/13/2024 6:10 PM CDT [facility] % Basophils 0 % 09/13/2024 6:10 PM CDT [facility] % Immature Granulocytes 1 % 09/13/2024 6:10 PM CDT [facility] NRBCs per 100 WBC 0 <1 /100 025 6:10 PM CDT [facility] Absolute Neutrophils 4.9 1.6 - 8.3 10e3/uL 09/13/2024 6:10 PM CDT [facility] Absolute Lymphocytes 2.3 0.8 - 5.3 10e3/uL 09/13/2024 6:10 PM CDT [facility] Absolute Monocytes 0.6 0.0 - 1.3 10e3/uL 09/13/2024 6:10 PM CDT [facility] Absolute Eosinophils 0.2 0.0 - 0.7 10e3/uL 09/13/2024 6:10 PM CDT [facility] Absolute Basophils 0.0 0.0 - 0.2 10e3/uL 09/13/2024 6:10 PM CDT [facility] Absolute Immature Granulocytes 0.0 <=0.4 10e3/uL 09/13/2024 6:10 PM CDT [facility] Absolute NRBCs 0.0 10e3/uL 09/13/2024 6:10 PM CDT [facility] Blood BLOOD SPECIMEN / Unknown Venipuncture / Unknown 09/13/2024 11:03 AM CDT 09/13/2024 11:03 AM CDT us Heladio Willoughby MD LAB - BLOOD ORDERABLES Final Res ult [facility] [address] Lab (1st floor, no room number) [place] [address], [facility] * (ABNORMAL) Comprehensive metabolic panel (09/13/2024 11:03 AM CDT) Sodium 141 135 - 145 mmol/L 09/14/2024 8:50 AM CDT [facility] Potassium 4.4 3.4 - 5.3 mmol/L 09/14/2024 8:50 AM CDT [facility] Carbon Dioxide (CO2) 26 22 - 29 mmol/L 09/14/2024 8:50 AM CDT [facility] Anion Gap 12 7 - 15 mmol/L 09/14/2024 8:50 AM CDT [facility] Urea Nitrogen 21.0(H) 6.0 - 20.0 mg/dL 09/14/2024 8:50 AM CDT [facility] Creatinine 0.51 0.51 - 0.95 mg/dL 09/14/2024 8:50 AM CDT [facility] GFR Estimate >90 >60 mL/min/1.7 3m2 09/14/2024 8:50 AM CDT [facility] Comment:eGFR calculated us2020 CKD-EPI equation. Calcium 9.6 8.8 - 10.4 mg/dL 09/14/2024 8:50 AM CDT [facility] Chloride 103 98 - 107 mmol/L 09/14/2024 8:50 AM CDT [facility] Glucose 93 70 - 99 mg/dL 09/14/2024 8:50 AM CDT [facility] Alkaline Phosphatase 84 40 - 150 U/L 09/14/2024 8:50 AM CDT [facility] AST 13 0 - 45 U/L 09/14/2024 8:50 AM CDT [facility] ALT 12 0 - 50 U/L 09/14/2024 8:50 AM CDT [facility] Protein Total 6.7 6.4 - 8.3 g/dL 09/14/2024 8:50 AM CDT [facility] Albumin 3.8 3.5 - 5.2 g/dL 09/14/2024 8:50 AM CDT [facility] Bilirubin Total 0.3 <=1.2 mg/dL 09/14/2024 8:50 AM CDT [facility] Patient Fasting > 8hrs? No 09/14/2024 8:50 AM CDT [facility] Blood BLOOD SPECIMEN / Unknown Venipuncture / Unknown 09/13/2024 11:03 AM CDT 09/13/2024 11:03 AM CDT us Heladio Willoughby MD LAB - BLOOD ORDERABLES Final Res ult [facility] [address], [address] [phone] * Vitamin D Deficiency (09/13/2024 11:03 AM CDT) Vitamin D, Total (25-Hydroxy) 27 20 - 50 ng/mL 09/14/2024 8:50 AM CDT [facility] Comment:optimum levels Blood BLOOD SPECIMEN / Unknown Venipuncture / Unknown 09/13/2024 11:03 AM CDT 09/13/2024 11:03 AM CDT Narrative [facility] - 09/14/2024 8:50 AM CDT Season, race, dietary intake, and treatment affect the concentration of 94-anzqakx-Nhjidxh D. Values may decrease during winter months and increase during summer months. Vitamin D determination is routinely performed by an immunoassay specific for 25 hydroxyvitamin D3. If an individual is on vitamin D2(ergocalciferol) supplementation, please specify 25 OH vitamin D2 and D3 level determination by LCMSMS test [id number]. us Heladio Willoughby MD LAB - BLOOD ORDERABLES Final Res ult [facility] [address] [facility], [address] [phone] * Lipid panel reflex to direct LDL Fasting (09/13/2024 11:03 AM CDT) Cholesterol 160 <200 mg/dL 09/14/2024 8:50 AM CDT [facility] Triglycerides 50 <150 mg/dL 09/14/2024 8:50 AM CDT [facility] Direct Measure HDL 61 >=50 mg/dL 2024 8:50 AM CDT [facility] LDL Cholesterol Calculated 89 <100 mg/dL 09/14/2024 8:50 AM CDT [facility] Non HDL Cholesterol 99 <130 mg/dL 09/14/2024 8:50 AM CDT [facility] Patient Fasting > 8hrs? No 09/14/2024 8:50 AM CDT [facility] Blood BLOOD SPECIMEN / Unknown Venipuncture / Unknown 09/13/2024 11:03 AM CDT 09/13/2024 11:03 AM CDT Narrative [facility] - 09/14/2024 8:50 AM CDT Cholesterol Desirable: < 200 mg/dL Borderline High: 200 - 239 mg/dL High: >= 240 mg/dL Triglycerides Normal: < 150 mg/dL Borderline High: 150 - 199 mg/dL High: 200-499 mg/dL Very High: >= 500 mg/dL Direct Measure HDL Female: >= 50 mg/dL Male: >= 40 mg/dL LDL Cholesterol Desirable: < 100 mg/dL Above Desirable: 100 - 129 mg/dL Borderline High: 130 - 159 mg/dL High: 160 - 189 mg/dL Very High: >= 190 mg/dL Non HDL Cholesterol Desirable: < 130 mg/dL Above Desirable: 130 - 159 mg/dL Borderline High: 160 - 189 mg/dL High: 190 - 219 mg/dL Very High: >= 220 mg/dL us Heladio Willoughby MD LAB - BLOOD ORDERABLES Final Res ult Performing Organization Address City/[facility]/ZIP Co de Phone Number LABORATORY [facility] [address] [facility], [address] [phone] * HCG qualitative (09/13/2024 11:03 AM CDT) hCG Serum Qualitative Negative Negative LINDA 09/13/2024 8:35 PM CDT [facility] Comment:This test is for scr eening purposes. Results should be interpreted along with the clinical picture. Confirmation testing is available if warranted by ordering [id number], HCG Quantitative . Blood BLOOD SPECIMEN / Unknown Venipuncture / Unknown 09/13/2024 11:03 AM CDT 09/13/2024 11:03 AM CDT Heladio Willoughby MD LAB - BLOOD ORDERABLES Final Res ult LABORATORY [facility] [address] [facility], [address] [phone] documented in this encounter Visit Diagnoses Diagnosis Screening for cervical cancer- Primary Screening for malignant neoplasm of the cervix Horseshoe kidney with renal calculus Encounter for IUD insertion Encounter for insertion of intrauterine contraceptive device Thoracic spina bifida, unspecified hydrocephalus presence (H) Wheelchair dependence documented in this encounter Care Teams Biological Photographer Relationship Specialty [place] [address] [place] [address] PCP - General 03/05/23 Carlos Joyner MD [address] [place] [address] Urology 12/09/19 Jadon Murray MD [facility] [address] [phone] Referring Physician Pediatric Surgery 12/09/19 Maru Villagomez, OTILIO Registered Nurse 12/10/19 Ang Slade MD [address] [place] [address] [phone] Urology 04/24/20 Carlos Joyner MD [address] [place] [address] [id number] Assigned Surgical Provider 12/24/20 Ang Slade MD [address] [place] [address] [phone] Urology 12/18/22 Lakshmi Wilhelm PA-C [address] [place] [id number] Physician Multiplex Operator Urology 02/03/23 [place] [address] [place] [address] Assigned PCP 02/06/23 Alissa Perez PA-C [address] [place] [address] Physician Multiplex Operator Surgery 09/04/23 Lakshmi Wilhelm PA-C [address] [place] [address] Physician Multiplex Operator Urology 09/16/23 Aidee Valero PA-C [address] [place] [address] [id number] Assigned Musculoskeletal Provider 04/17/24 Tanisha Marlow [address] [facility] [address] 03/30/24 documented as of this encounter
--- OUTSIDE RECORDS SUMMARY | 2024-09-19 21:08 | XMS_ITS | Encounter Summary ---
Author Organization [facility] Address [address] [place] [address] Care Team Providers Care Bowl Turner Name Role Phone Carlos Joyner MD Unavailable [phone] Jadon Murray MD Unavailable [phone] Maru Villagomez RN Unavailable Unavailable Ang Slade MD Unavailable [phone] Carlos Joyner MD Unavailable [phone] Ang Slade MD Unavailable [phone] Lakshmi Wilhelm PA-C Unavailable Heladio Willoughby MD Primary Care Provider [phone] Heladio Willoughby MD Unavailable Alissa Perez PA-C Unavailable [phone] Lakshmi Wilhelm PA-C Unavailable Aidee Valero PA-C Unavailable Reason for Visit * Reason Comments RECHECK Encounter Details Date Type Department Care Team (Late st Contact Info) Description 09/07/2024 8:30 AM CDT Virtual Visit [facility] [address] [place] [address] Carlos Joyner MD [address] [place] [address] Kidney stone (Primary Dx); Hypercalciuria Social History Tobacco Use Types Packs/Day Years [...] than three times a week 07/16/2024 Attends Denominational Services Not on file 07/16 Active Member of Clubs or Organizations Not on f ile 07/16/2024 Attends Club or Organization Meetings Not on antelmo e 07/16/2024 Marital Status Not on file 07/16/2024 PHQ-2 Answer Date Recorded PHQ-2 Score Incomplete 07/21/2024 [facility] [place] of Occupat ional Health - Occupational Stress [...] building, in an overnight fdc, or couch-surfing.) No 07/16/2024 Are you worried [...] 08/13/2024 08/19/2024 documented as of this encounter Progress Notes * Carlos Joyner MD - 09/07/2024 8:30 AM CDT Virtual Visit Details Type of service: Video Visit Video Start Time: 8:30 Video End Time: 8:50 Originating Location (pt. Location): Home Distant Location (provider location): Off-site Platform used for Video Visit: [facility] UROLOGY OUTPATIENT VISIT ASSESSMENT/PLAN 23 year old year old being seen today for kidney stones now wih recurrent UTI and large left staghorn stone -We discussed the surgical treatment options for renal stones including shock wave lithotripsy, ureteroscopy, and percutaneous nephrolithotomy. We discussed the risks and benefits of each approach inthe context of the patient's current stone burden. After consideration of each the decision was made to proceed with left percutaneous nephrolithotomy and right ureteroscopic stone treatment because We discussed the risks of bleeding, infection, incomplete stone removal, damage to adjacent organs,and need for staged procedures. We reviewed the potential increased risk for infection and prolonged hospitalization related to herunderlying neurologic condition of spina bifida CHIEF COMPLAINT Kidney stone Synopsis Laina Escudero is a very pleasant AGE: [age] year old year old person Is a history of spina bifida with bladder augment and catheterizable Mitrofanoff. She has a patent urethra. She also has a horseshoe kidney and is required multiple endoscopic stone removals in the past. Her last procedure was with me over a year ago. We have been making best efforts to prevent kidney stones and infections. She has been irrigating at home and at school around every 6 hours. She also uses gentamicin irrigation daily. Unfortunately, the frequency of urinary tract infections has been increasing over the past several months. She had 1 hospitalization related to UTI this past April. She is otherwise not had any kidney stone events and denies any hematuria or flank pain. An updated CT scan was performed recently which I personally reviewed showing current stone in the left kidney in the form of a 3 cm lower pole staghorn occupying multiple calyces. There are otherwise a couple of small stones in the right kidney that are not obstructive. Medications Current Outpatient Medications Medication Sig Dispense Refill indapamide (LOZOL) 1.25 MG tablet Take 1 tablet (1.25 mg) by mouth every morning. 90 tablet 3 acetaminophen (TYLENOL) 325 MG tablet Take 325-650 mg by mouth every 6 hours as needed for mild pain B-D SYRINGE LUER-OLGA 30 ML MISC USE TO FLUSH BLADDER bisacodyl (DULCOLAX) 5 MG EC tablet 0 Refill(s), Maintenance COMPOUNDED NON-CONTROLLED SUBSTANCE (CMPD RX) - PHARMACY TO MIX COMPOUNDED MEDICATION Instill 30 mLinto the bladder via straight catheter once daily per provider instructions. 900 mL 11 docusate sodium (COLACE) 100 MG capsule Take 100 mg by mouth every evening Elastic Bandages & Supports (PATEL ELASTIC BANDAGE 4) MISC Apply 1 each topically gentamicin (GARAMYCIN) 40 MG/ML injection 40 mg MONOJECT HYPODERMIC NEEDLE 18G X 1 MISC [...] into bladder at HS 1800 mL 11 oxyBUTYnin (DITROPAN) 5 MG tablet TAKE ONE TABLET BY MOUTH TWICE DAILY 180 tablet 2 polyethylene glycol (MIRALAX) 17 GM/Dose powder See Instructions, 1-3 tsp as needed to maintain soft stools, # 527 g, 1 Refill(s), Maintenance, other potassium chloride marcie ER (KLOR-CON M10) 10 MEQ CR tablet TAKE ONE TABLET BY MOUTH TWICE DAILY 90 tablet 3 potassium chloride ER (K-TAB) 20 MEQ CR tablet Take 1 tablet (20 mEq) by mouth daily 90 tablet 3 Saline Bacteriostatic (SODIUM CHLORIDE BACTERIOSTATIC) 0.9 % SOLN flush Irrigate with 30 mLs as directed At Bedtime for 31 doses 930 mL 11 sodium chloride 0.9%, bottle, 0.9 % irrigation Irrigate with 60 mLs as directed 2 times daily Instill 60 ml into bladder along with Gentamicin solution Wound Dressings (MEDIHONEY CA ALGINATE 2X2) PADS Externally apply 1 each topically daily 10 each 0 No current facility-administered medications for this visit. The following distinct labs were reviewed I [...] 04/04/23 0023 SHIRA 9.5 9.4 8.2* 7.8* UA RESULTS: Recent Labs Lab Test 06/25/24 0914 04/21/24 1030 03/05/24 0730 SG 1.020 1.020 1.025 URINEPH 6.0 6.5 7.0 NITRITE Positive* Positive* Positive* RBCU 2-5* 2-5* 0-2 WBCU 10-25* 25-50* >100* PSA RESULTS No results found for: PSA Recent Imaging Report I personally reviewed all applicable imaging and went over the below findings with patient. Results for orders placed or performed during the hospital encounter of 09/03/24 CT Abdomen Pelvis w/o Contrast Narrative EXAM: CT ABDOMEN PELVIS W/O CONTRAST LOCATION: [facility] DATE: 09/03/2024 INDICATION: Low dose for kidney stones. COMPARISON: 04/01/2023. TECHNIQUE: Low dose CT scan of the abdomen and pelvis was performed without IV contrast. Multiplanar reformats were obtained. Dose reduction techniques were used. CONTRAST: None. FINDINGS: LOWER CHEST: Normal. HEPATOBILIARY: Normal. PANCREAS: Normal. SPLEEN: Normal. ADRENAL GLANDS: Normal. KIDNEYS/BLADDER: Horseshoe kidney. Previously seen percutaneous nephrostomy tubes and ureteral stents have been removed. No definite hydronephrosis. There are multiple nonobstructing bilateral renal calculi. The largest calculus is a staghorn type calculus filling the lower pole calyces of the left moiety measuring up to 3.1 cm in greatest length. The largest calculi right lower pole measure 8 mm. No ureteral or bladder calculi. BOWEL: Normal. LYMPH NODES: Normal. VASCULATURE: Normal. PELVIC ORGANS: Gas in the bladder presumably from prior instrumentation. [employer] shunt tubing in the pelvis. MUSCULOSKELETAL: Lumbosacral fusion. Muscular atrophy in the pelvis. 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 Impression IMPRESSION: Multiple nonobstructing bilateral renal calculi in a horseshoe kidney. The largest calculus is a staghorn type calculus on the left measuring over 3 cm in greatest diameter. CC: Heladio Willoughby documented in this encounter Nursing Notes * Sherry Aguilar - 09/07/2024 8:30 AM CDT Current patient location:School Is the patient currently in the state [facility]? YES Visit mode: VIDEO If the visit is dropped, the patient can be reconnected by:VIDEO VISIT: Text to cell phone: Telephone Information: Mobile Not on file. Will anyone else be joining the visit? NO (If patient encounters technical issues they should call [phone] :[phone]) Are changes needed to the allergy or medication list? No Are refills needed on medications prescribed by this physician? NO Rooming Documentation: Not applicable Reason for visit: RECHECK Sherry Crystal VVF documented in this encounter Plan of Treatment Upcoming Encounters Date Type Department Care Team (Late st Contact Info) Description 09/20/2024 11:00 AM CDT Office Visit [address] [phone] Sugey Mccoy, SUPER[employer] [address] [id number] 09/27/2024 1:40 PM CDT Ancillary Procedure [address] [place] [phone] [place] [address] [place] [address] 09/28/2024 10:30 AM CDT Therapy Visit [facility] [address] [facility] [address] [place] [address] [place] [address] [address] [place], [place] [phone] Daly Edmonds, [address] [id number] Scheduled Procedures Name Priority Associated Diagnoses Date/Ti me NEPHROLITHOTOMY, PERCUTANEOU S, USING HOLMIUM LASER Kidney stone documented as of this encounter Visit Diagnoses Diagnosis Kidney stone- Primary Calculus of kidney Hypercalciuria Unspecified disorders of calcium metabolism documented in this encounter Care Teams Bowl Turner Relationship Specialty Start [place] [address] [place] [address] PCP - General 03/05/23 Carlos Joyner MD [address] [place] [address] [id number] Urology 12/09/19 Jadon Murray MD [facility] [address] [address] Referring Physician Pediatric Surgery 12/09/19 Maru Villagomez, RN Registered Nurse 12/10/19 Ang Slade MD [address] [place] [address] Urology 04/24/20 Carlos Joyner MD [address] [place] [address] [phone] Assigned Surgical Provider 12/24/20 Ang Slade MD [address] [place] [address] Urology 12/18/22 Lakshmi Wilhelm PA-C [address] [place] [address] Physician Etcher Machine Urology 02/03/23 [place] [address] [place] [address] Assigned PCP 02/06/23 Alissa Perez PA-C [address] [place] [address] [phone] Physician Etcher Machine Surgery 09/04/23 Lakshmi Wilhelm PA-C [address] [place] [address] [phone] Physician Etcher Machine Urology 09/16/23 Aidee Valero PA-C [address] [place] [address] 186465 Assigned Musculoskeletal Provider 04/17/24 Tanisha Marlow [address] [facility] [address] 03/30/24 documented as of this encounter
--- OUTSIDE RECORDS SUMMARY | 2024-09-19 21:08 | XMS_ITS | Encounter Summary ---
Author Organization [facility] Address [address] [place] [address] Care Team Providers Care Photo Finisher Name Role Phone Carlos Joyner MD Unavailable [phone] Jadon Mruray MD Unavailable [phone] Maru Villagomez RN Unavailable Unavailable Ang Slade MD Unavailable [phone] Carlos Joyner MD Unavailable [phone] Ang Slade MD Unavailable [phone] Lakshmi Wilhelm-C Unavailable [phone] Heladio Willoughby MD Primary Care Provider [phone] Heladio Willoughby MD Unavailable Alissa Perez PA-C Unavailable [phone] Lakshmi Wilhelm-C Unavailable [phone] Aidee Valero PA-C Unavailable Reason for Referral * Diagnostic Imaging CT Scan (Routine) - Closed Specialty Diagnoses / Procedures Referred By Contabran t Referred To Contact Radiology. Diagnoses Kidney stone Procedures CT Abdomen Pelvis w/o Contrast Carlos Joyner MD [address] [place] [address] Phone: tel: fax: Referral ID Status Reason Start Date Expiration Date Visits Re quested Visits Authorized [id number] Closed 09/23/2023 09/22/2024 1 1 Reason for Visit * Diagnostic Imaging CT Scan (Routine) - Closed Specialty Diagnoses / Procedures Referred By Charli t Referred To Contact Radiology. Diagnoses Kidney stone Procedures CT Abdomen Pelvis w/o Contrast Carlos Joyner MD [address] [place] [address] Phone: tel: fax: Referral ID Status Reason Start Date Expiration Date Visits Re quested Visits Authorized [id number] Closed 09/23/2023 09/22/2024 1 1 Encounter Details Date Type Department Care Team (Latest Contact Info) Description 09/03/2024 9:32 AM CDT - 09/03/2024 11:59 PM CDT Hospital Encounter [facility] [address] [phone] Carlos Joyner MD [address] [place] [address] [phone] Kidney stone Discharge Disposition: Home or Self [...] than three times a week 07/16/2024 Attends Bahai Services Not on file 07/16 Active Member of Clubs or Organizations Not on f ile 07/16/2024 Attends Club or Organization Meetings Not on antelmo e 07/16/2024 Marital Status Not on file 07/16/2024 PHQ-2 Answer Date Recorded PHQ-2 Score Incomplete 07/21/2024 [facility] [place] of Occupat ional Health - Occupational Stress [...] in an overnight senior care, or couch-surfing.) No 07/16/2024 Are you worried [...] Travel History Travel Start Travel End [place] 08/13/2024 08/19/2024 documented as of this encounter Medications at Time of Discharge acetaminophen (TYLENOL) 325 MG tablet Take 325-650 mg by mouth every 6 hours as needed for mild pain B-D SYRINGE LUER-OLGA 30 ML MISC USE TO FLUSH BLADDER 11/09/2019 bisacodyl (DULCOLAX) 5 MG EC tablet 0 Refill(s), Maintenance 03/13/2021 COMPOUNDED NON-CONTROLLED SUBSTANCE (CMPD RX) - PHARMACY TO MIX COMPOUNDED MEDICATIONIndica tions:Recurrent UTI Instill 30 mL into the bladder via straight catheter once daily per provider instructions. 900 mL 11 07/22/2024 docusate sodium (COLACE) 100 MG capsule Take 100 mg by mouth every evening Elastic Bandages & Supports (PATEL ELASTIC BANDAGE 4) MISC Apply 1 each topically 11/09/2018 gentamicin (GARAMYCIN) 40 MG/ML injection 40 mg 11/11/2023 MONOJECT HYPODERMIC NEEDLE 18G X 1 MISC USE TO FLUSH BLADDER 11/09/2019 Multiple Vitamin (MULTI-VITAMINS) TABS Take 1 tablet by mouth every evening NEW MEDIndications:D UPICATE 480mg Gentamicin in one liter of Normal Saline. Instill 30 ml of gentamicin solution into bladder at bedtime 930 mL 11 08/09/2020 NEW MEDIndications:R ecurrent UTI 480 MG Gentamicin in 1 Liter 0.9 Normal Saline. Instill 60 mL of Gentamicin solution into bladder at HS 1800 mL 11 03/15/2020 oxyBUTYnin (DITROPAN) 5 MG tabletIndication s:Bladder spasms TAKE ONE TABLET BY MOUTH TWICE DAILY 180 tablet 2 12/24/2023 polyethylene glycol (MIRALAX) 17 GM/Dose powder See Instructions, 1-3 tsp as needed to maintain soft stools, # 527 g, 1 Refill(s), Maintenance, other 03/13/2021 potassium chloride marcie ER (KLOR-CON M10) 10 MEQ CR tabletIndication s:Hypercalciuria TAKE ONE TABLET BY MOUTH TWICE DAILY 90 tablet 3 02/20/2024 potassium chloride ER (K-TAB) 20 MEQ CR tabletIndication s:Hypercalciuria Take 1 tablet (20 mEq) by mouth daily 90 tablet 3 06/17/2023 sodium chloride 0.9%, bottle, 0.9 % irrigation Irrigate with 60 mLs as directed 2 times daily Instill 60 ml into bladder along with Gentamicin solution Wound Dressings (MEDIHONEY CA ALGINATE 2X2) PADSIndications: Pressure ulcer acquired in [facility] Externally apply 1 each topically daily 10 each 04/16/2023 indapamide (LOZOL) 1.25 MG tabletIndication s:Hypercalciuria TAKE ONE TABLET BY MOUTH EVERY DAY IN THE MORNING. 90 tablet 07/09/2024 5 documented as of this encounter Plan of Treatment Upcoming Encounters Date Type Department Care Team (Darío villafana Contact Info) Description 09/20/2024 11:00 AM CDT Office Visit [facility] [address] [place] [phone] Sugey Mccoy APRN CNP [address] [place] [address] 09/27/2024 1:40 PM CDT Ancillary Procedure [address] [place] [phone] [place] [address] [address] [place], [place] [phone] 09/28/2024 10:30 AM CDT Therapy Visit [facility] [address] [facility] [address] [place] [address] [place] [address] [place], [place] [phone] Daly Edmonds, OT [address] [place] [address] Scheduled Procedures Name Priority Associated Diagnoses Date/Ti me NEPHROLITHOTOMY, PERCUTANEOU S, USING HOLMIUM LASER Kidney stone documented as of this encounter Procedures Procedure Name Priority Date/Time Associated Diagnosis Comments CT ABDOMEN PELVIS W/O CONTRAST Routine 09/03/2024 10:00 AM CDT Kidney stone documented in this encounter Results * CT Abdomen Pelvis w/o Contrast (09/03/2024 10:00 AM CDT) Anatomical Region Laterality Modality Abdomen/Pelvis, SUBRAD CT ASCENCION DY, UMP CT ABDOMEN PELVIS, RAD CT Computed Tomography 09/03/2024 10:0 0 AM CDT Impressions 09/03/2024 2:50 PM CDT IMPRESSION: Multiple nonobstructing bilateral renal calculi in a horseshoe kidney. The largest calculus is a staghorn type calculus on the left measuring over 3 cm in greatest diameter. Narrative 09/03/2024 2:50 PM CDT EXAM: CT ABDOMEN PELVIS W/O CONTRAST LOCATION: [facility] DATE: 09/03/2024 INDICATION: Low dose for kidney [...] in the bladder presumably from prior instrumentation. [employer] shunt tubing in the pelvis. MUSCULOSKELETAL: Lumbosacral fusion. Muscular atrophy in the pelvis. 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 Procedure Note Vito Jimenez MD - 09/03/2024 EXAM: CT ABDOMEN PELVIS W/O CONTRAST LOCATION: [facility] DATE: 09/03/2024 INDICATION: Low dose for kidney stones. COMPARISON: 04/01/2023. TECHNIQUE: Low dose CT scan of the abdomen and pelvis was performedwithout IV contrast. Multiplanar reformats were obtained. Dose reductiontechniques were used. CONTRAST: None. FINDINGS: LOWER CHEST: Normal. HEPATOBILIARY: Normal. PANCREAS: Normal. SPLEEN: Normal. ADRENAL GLANDS: Normal. KIDNEYS/BLADDER: Horseshoe kidney. Previously seen percutaneousnephrostomy tubes and ureteral stents have been removed. No definitehydronephrosis. There are multiple nonobstructing bilateral renal calculi.The largest calculus is a staghorn type calculus filling the lower pole calyces of the left moiety measuring up to3.1 cm in greatest length. The largest calculi right lower pole measure 8mm. No ureteral or bladder calculi. BOWEL: Normal. LYMPH NODES: Normal. VASCULATURE: Normal. PELVIC ORGANS: Gas in the bladder presumably from prior instrumentation.[employer] shunt tubing in the pelvis. MUSCULOSKELETAL: Lumbosacral fusion. Muscular atrophy in the pelvis.Chronic ossification lateral to the left hip. IMPRESSION: Multiple nonobstructing bilateral renal calculi in a horseshoekidney. The largest calculus is a staghorn type calculus on the leftmeasuring over 3 cm in greatest diameter. Carlos Joyner MD IMG CT ORDERABLES Final Re sult documented in this encounter Visit Diagnoses Diagnosis Kidney stone Calculus of kidney documented in this encounter Care Teams Photo Finisher Relationship Specialty Start [place] [address] [place] [address] PCP - General 03/05/23 Carlos Joyner MD [address] [place] [address] Urology 12/09/19 Jadon Murray MD [facility] [address] [place] [address] Referring Physician Pediatric Surgery 12/09/19 Maru Villagomez, RN Registered Nurse 12/10/19 Ang Slade MD [address] [place] [address] [id number] Urology 04/24/20 Carlos Joyner MD [address] [place] [address] Assigned Surgical Provider 12/24/20 Ang Slade MD [address] [place] [address] [id number] Urology 12/18/22 Lakshmi Wilhelm PA-C [address] [place] [address] Physician Planer Stone Urology 02/03/23 [place] [address] [place] [address] Assigned PCP 02/06/23 Alissa Perez PA-C [address] [place] [address] Physician Planer Stone Surgery 09/04/23 Lakshmi Wilhelm PA-C [address] [place] [address] Physician Planer Stone Urology 09/16/23 Aidee Valero PA-C [address] [place] [address] [phone] Assigned Musculoskeletal Provider 04/17/24 Tanisha Marlow [address] [facility] [address] 03/30/24 documented as of this encounter
--- OUTSIDE RECORDS SUMMARY | 2024-09-19 21:08 | XMS_ITS | Encounter Summary ---
Author Organization [facility] Address [address] [place] [address] Care Team Providers Care Steam Clean Machine Operator Name Role Phone Carlos Joyner MD Unavailable [phone] Jadon Murray MD Unavailable [phone] Maru Villagomez RN Unavailable Unavailable Ang Slade MD Unavailable [phone] Carlos Joyner MD Unavailable [phone] Ang Slade MD Unavailable [phone] Lakshmi WilhelmC Unavailable [phone] Heladio Willoughby MD Primary Care Provider [phone] Heladio Willoughby MD Unavailable Alissa Perez PA-C Unavailable [phone] Lakshmi WilhelmC Unavailable [phone] Aidee ValeroC Unavailable +[phone] Encounter Details Date Type Department Care Team (Late st Contact Info) Description 03/30/2024 Telephone [facility] Orthopedic [address] 4th [place] [address] Aidee Valero PA-C [address] [place] [address] Social History Tobacco Use Types Packs/Day [...] 07/16/2024 Attends Taoism Services Not on file 07/16 Active Member of Clubs or Organizations Not on f ile 07/16/2024 Attends Club or Organization Meetings Not on antelmo e 07/16/2024 Marital Status Not on file 07/16/2024 PHQ-2 Answer Date Recorded PHQ-2 Score Incomplete 07/21/2024 [facility] of Occupat ional Health [...] file Travel History Travel Start Travel End [place] 08/13/2024 08/19/2024 documented as of this encounter Miscellaneous Notes * Telephone Encounter - Natalie Abdullahi - 03/30/2024 3:[address] [facility] Call Center Phone Message May a detailed message be left on voicemail: yes Reason for Call: Other: Anna is calling from Medical Records at [facility]. She is calling as she wants to know the time frame of records that are being requested? Action Taken: Other: te Travel Screening: Not Applicable Date of Service: UCTION SKI REPAIRER documented in this encounter Plan of Treatment Upcoming Encounters Date Type Department Care Team (Late st Contact Info) Description 09/20/2024 11:00 AM CDT Office Visit [facility] Sleep Center [address] [phone] Sugey Mccoy, TUBE BACKER [facility] [address] [place] [address] [address] [place] [address] 09/27/2024 1:40 PM CDT Ancillary Procedure [address] [place] [phone] [place] [address] [place] [address] 09/28/2024 10:30 AM CDT Therapy Visit [facility] Rehabilitation Services [facility] [address] [place] [address] [address] [place] [address] [place] [address] [place] [id number] Daly Edmonds, OT 909 [place], [place] [address] Scheduled Procedures Name Priority Associated Diagnoses Date/Ti me NEPHROLITHOTOMY, PERCUTANEOU S, USING HOLMIUM LASER Kidney stone documented as of this encounter Visit Diagnoses Not on filedocumented in this encounter Care Teams Steam Clean Machine Operator Relationship Specialty Start [place] [address] [facility] [address] PCP - General 03/05/23 Carlos Joyner MD [address] [place] [address] [id number] Urology 12/09/19 Jadon Murray MD [facility] [address] [id number] Referring Physician Pediatric Surgery 12/09/19 Maru Villagomez, OTILIO Registered Nurse 12/10/19 Ang Slade MD [address] [place] [address] 713085 Urology 04/24/20 Carlos Joyner MD [address] [place] [address] Assigned Surgical Provider 12/24/20 Ang Slade MD [address] [place] [address] 634745 Urology 12/18/22 Lakshmi Wilhelm PA-C [address] [place] [address] 682335 Physician Director Of Institutional Giving Urology 02/03/23 [place] [address] [place] [address] Assigned PCP 02/06/23 Alissa Perez PA-C [address] [place] [address] 467805 Physician Director Of Institutional Giving Surgery 09/04/23 Lakshmi Wilhelm PA-C [address] [place] [address] 598895 Physician Director Of Institutional Giving Urology 09/16/23 Aidee Valero PA-C 909 [place], [place] 253825 Assigned Musculoskeletal Provider 04/17/24 Tanisha Marlow 4120 [facility] [address] 03/30/24 documented as of this encounter
--- OUTSIDE RECORDS SUMMARY | 2024-09-19 21:08 | XMS_ITS | Encounter Summary ---
Author Organization [facility] [facility] Address [address] [place] [address]. [place] [address] Care Team Providers Care President Of The [place] Name Role Phone Carlos Joyenr MD Unavailable [phone] Jadon Murray MD Unavailable [phone] Maru Villagomez RN Unavailable Unavailable Ang Slade MD Unavailable [phone] Carlos Joyner MD Unavailable [phone] Ang Slade MD Unavailable [phone] Lakshmi Wilhelm-C Unavailable [phone] Heladio Willoughby MD Primary Care Provider [phone] Heladio Willoughby MD Unavailable Alissa Perez PA-C Unavailable [phone] Lakshmi Wilhelm-C Unavailable [phone] Aidee Valero PA-C Unavailable [phone] Reason for Visit * Reason Onset Date Comments Vaginal Problem 08/20/2024 Encounter Details Date Type Department Care Team (Late st Contact Info) Description 08/20/2024 Telephone [facility] [address] [place] [address] [place] [address] [place] [address] Vaginal Problem Social History Tobacco Use Types Packs/Day Years [...] than three times a week 07/16/2024 Attends Sabianism Services Not on file 07/16 Active Member of Clubs or Organizations Not on f ile 07/16/2024 Attends Club or Organization Meetings Not on antelmo e 07/16/2024 Marital Status Not on file 07/16/2024 PHQ-2 Answer Date Recorded PHQ-2 Score Incomplete 07/21/2024 [facility] of Occupat ional Health - Occupational Stress [...] building, in an overnight snf, or couch-surfing.) No 07/16/2024 Are you worried [...] file Travel History Travel Start Travel End [place] 08/13/2024 08/19/2024 documented as of this encounter Miscellaneous Notes * Telephone Encounter - Mercy Feliz, RN - 08/20/2024 3:00 PM CDT Daksha, from [facility] calling. States she was straight cathing pt and noticed a white milky discharge. States she has a history of frequent UTI's and yeast infections. Daksha thinks this is a yeast infection. Advised daksha that a lab test is needed in order to prescribe an antibiotic. In order to get the lab tests as soon as possible, software writer advised proxy to submit an e-visit through pt's AIM. Sent instructions via AIM on how to submit e-visit. HANS SalinasN, RN [facility] 08/20/2024 at 3:10 PM documented in this encounter Plan of Treatment Upcoming Encounters Date Type Department Care Team (Late st Contact Info) Description 09/20/2024 11:00 AM CDT Office Visit [address] [address] Sugey Mccoy, ACCOUNTING ASSISTANT [address] [place] [address] 09/27/2024 1:40 PM CDT Ancillary Procedure [address] [place] [phone] [place] [address] [place] [address] 09/28/2024 10:30 AM CDT Therapy Visit [facility] 2200 [facility] [address] [place] [address] [place] [address] [place] [address] Daly Edmonds, OT 909 [place], [place] 2460[address] Scheduled Procedures Name Priority Associated Diagnoses Date/Ti me NEPHROLITHOTOMY, PERCUTANEOU S, USING HOLMIUM LASER Kidney stone documented as of this encounter Visit Diagnoses Not on filedocumented in this encounter Care Teams President Of The [place] Relationship Specialty Start [place] [address] [place] [address] PCP - General 03/05/23 Carlos Joyner MD [address] [place] [address] Urology 12/09/19 Jadon Murray MD [facility] 2530 [facility] [address] [place] [address] Referring Physician Pediatric Surgery 12/09/19 Maru Villagomez RN Registered Nurse 12/10/19 Ang Slade MD 420 [facility] 394 [place] [address] Urology 04/24/20 Carlos Joyner MD [address] [place] [address] Assigned Surgical Provider 12/24/20 Ang Slade MD [address] [place] [address] Urology 12/18/22 Lakshmi Wilhelm PA-C [address] [place] [address] Physician Skiver Counter Urology 02/03/23 [place] [address] [place] [address] Assigned PCP 02/06/23 Alissa Perez PA-C [address] [place] [address] Physician Skiver Counter Surgery 09/04/23 Lakshmi Wilhelm PA-C [address] [place] [address] Physician Skiver Counter Urology 09/16/23 Aidee Valero PA-C [address] [place] [address] Assigned Musculoskeletal Provider 04/17/24 Tanisha Marlow 4120 [facility] [address] 03/30/24 documented as of this encounter
--- OUTSIDE RECORDS SUMMARY | 2024-09-19 21:08 | XMS_ITS | Encounter Summary ---
Author Organization [facility] Address [address] [place] [address]. [place] [address] Care Team Providers Care Receiving Worker Name Role Phone Carlos Joyner MD Unavailable [phone] Jadon Murray MD Unavailable [phone] Maru Villagomez RN Unavailable Unavailable Ang Slade MD Unavailable [phone] Carlos Joyner MD Unavailable [phone] Ang Slade MD Unavailable [phone] Lakshmi Wilhelm-C Unavailable [phone] Heladio Willoughby MD Primary Care Provider [phone] Heladio Willoughby MD Unavailable Alissa Perez PA-C Unavailable [phone] Lakshmi Wilhelm-C Unavailable [phone] Aidee Valero PA-C Unavailable [phone] Reason for Visit * Reason Onset Date Comments Forms 02/06/2024 [facility] [employer] - Medication Authorization Form Encounter Details Date Type Department Care Team (Late st Contact Info) Description 02/06/2024 [facility] [address] [place] [address] [place] [address] [place] [address] Forms ([facility] Education Key Ringer... Social History Tobacco Use Types Packs/Day Years [...] Travel History Travel Start Travel End [place] 08/13/2024 08/19/2024 documented as of this encounter Miscellaneous Notes * Telephone Encounter - Jorge Luis Kasia - 02/06/2024 1:08 PM CDT Forms/Letter Request Type of form/letter: School Do we have the form/letter: Yes: Medication Authorization Form Who is the form from? [facility] (if other please explain) Where did/will the form come from? form was sent via [employer] When is form/letter needed by: RUPA How would you like the form/letter returned: MyChart Printed forms and placed in provider's basket for review and signature Kasia Gutierrez Lead Pressure Welder [facility] documented in this encounter Plan of Treatment Upcoming Encounters Date Type Department Care Team (Late st Contact Info) Description 09/20/2024 11:00 AM CDT Office Visit [address] [phone] Sugey Mccoy, NESTOR [facility] [address] [place] [address] 106 [place] [address] 09/27/2024 1:40 PM CDT Ancillary Procedure [address] [place] [phone] [place] [address] [place] [address] 09/28/2024 10:30 AM CDT Therapy Visit [facility] Rehabilitation [facility] 2200 [facility] [address] [place] [address] [place] [address] [place] [address] Daly Edmonds, OT 909 [place] [address] Scheduled Procedures Name Priority Associated Diagnoses Date/Ti me NEPHROLITHOTOMY, PERCUTANEOU S, USING HOLMIUM LASER Kidney stone documented as of this encounter Visit Diagnoses Not on filedocumented in this encounter Care Teams Receiving Worker Relationship Specialty Start [place] [address] [place] [address] PCP - General 03/05/23 Carlos Joyner MD [address] [place] [address] Urology 12/09/19 Jadon Murray MD [facility] 2530 [facility] [address] [place] [address] Referring Physician Pediatric Surgery 12/09/19 Maru Villagomez, RN Registered Nurse 12/10/19 Ang Slade MD 420 [facility] 394 [place], [place] 387735 Urology 04/24/20 Carlos Joyner MD [address] [place] [address] 012945 Assigned Surgical Provider 12/24/20 Ang Slade MD 420 [facility] 394 [place], [place] 231875 Urology 12/18/22 Lakshmi Wilhelm PA-C [address] [place] [address] 118085 Physician Shift Production Supervisor Urology 02/03/23 [place] [address] [place] [address] Assigned PCP 02/06/23 Alissa Perez PA-C [address] [place] [address] Physician Shift Production Supervisor Surgery 09/04/23 Lakshmi Wilhelm PA-C [address] [place] [address] Physician Shift Production Supervisor Urology 09/16/23 Aidee Valero PA-C 909 [place] [address] Assigned Musculoskeletal Provider 04/17/24 Tanisha Marlow [facility] [address] 03/30/24 documented as of this encounter
--- OUTSIDE RECORDS SUMMARY | 2024-09-19 21:09 | XMS_ITS | Encounter Summary ---
Author Organization [facility] Address [address] [place] [address] Care Team Providers Care Account Group Supervisor Name Role Phone Carlos Joyner MD Unavailable [phone] Jadon Murray MD Unavailable [phone] Maru Villagomez RN Unavailable Unavailable Ignacia Duran MD Primary Care Provider [phone] Carlos Joyner MD Unavailable [phone] Ang Slade MD Unavailable [phone] Ang Slade MD Unavailable [phone] Carlos Joyner MD Unavailable [phone] Annalise Orta-C Unavailable [phone] Ang Slade MD Unavailable [phone] Lakshmi Wilhelm-C Unavailable [phone] Heladio Willoughby MD Primary Care Provider [phone] Heladio Willoughby MD Unavailable Alissa Perez PA-C Unavailable [phone] Lakshmi Wilhelm-C Unavailable [phone] Aidee Valero PA-C Unavailable +[phone] Reason for Visit * Reason Comments Orders Encounter Details Date Type Department Care Team (Late st Contact Info) Description 02/02/2020 Orders Only [facility] Urology and [facility] [address] [phone] Maru Villagomez, RN Social History Tobacco Use [...] Description 09/20/2024 11:00 AM CDT Office Visit [address] [phone] Sugey Mccoy, FISH HATCHERY SUPERVISOR [facility] [address] [place] [address] [address] [place] [address] 09/27/2024 1:40 PM CDT Ancillary Procedure [address] [place] [phone] [place] [address] [address] [place] 1148668 09/28/2024 10:30 AM CDT Therapy Visit [facility] Rehabilitation Services [facility] 2200 [facility] [address] [place], [place] [phone] [place] [address] [address] [place] 6007968 Daly Edmonds, OT 909 [place] [address] Scheduled Procedures Name Priority Associated Diagnoses Date/Ti [...] documented as of this encounter Care Teams Account Group Supervisor Relationship Specialty Start Date End Date Ignacia Duran MD PCP - General Pediatrics 01/20/20 03/04/23 [place] [address] [place] [address] PCP - General 03/05/23 Carlos Joyner MD [address] [place] [address] Urology 12/09/19 Jadon Murray MD [facility]0 [address] [address] Referring Physician Pediatric Surgery 12/09/19 Maru Villagomez, RN Registered Nurse 12/10/19 Carlos Joyner MD [address] [place] [address] Assigned Surgical Provider 03/17/20 Ang Slade MD [address] [place] [address] 940435 Urology 04/24/20 Ang Slade MD 420 [facility] [address] [place] [address] Assigned Surgical Provider 08/13/20 Carlos Joyner MD [address] [place] [address] Assigned Surgical Provider 12/24/20 Annalise Orta PA-C 5200 [place] [address] Assigned Cancer Care Provider 05/13/21 11/01/22 Ang Slade MD [address] [place] [address] MD Urology 12/18/22 Lakshmi Wilhelm PA-C [address] [place] [address] Physician Relations Manager Urology 02/03/23 [place] [address] [place] [address] Assigned PCP 02/06/23 Alissa Perez PA-C [address] [place] [address] 259045 Physician Relations Manager Surgery 09/04/23 Lakshmi Wilhelm PA-C [address] [place] [address] 480835 Physician Relations Manager Urology 09/16/23 Aidee Valero PA-C [address] [place] [address] 516965 Assigned Musculoskeletal Provider 04/17/24 Tanisha Marlow 4120 [facility] [address] 03/30/24 documented as of this encounter
--- OUTSIDE RECORDS SUMMARY | 2024-09-19 21:09 | XMS_ITS | Encounter Summary ---
Author Organization [place] Address [address] [place] [address] Care Team Providers Care Spinner Cap Frame Name Role Phone Carlos Joyner MD Unavailable [phone] Jadon Murray MD Unavailable [phone] Maru Villagomez RN Unavailable Unavailable Ignacia Duran MD Primary Care Provider Ang Slade MD Unavailable [phone] Carlos Joyner MD Unavailable +[phone] Annalise Orta PA-C Unavailable [phone] Ang Slade MD Unavailable [phone] Lakshmi Wilhelm-C Unavailable [phone] Heladio Willoughby MD Primary Care Provider [phone] Heladio Willoughby MD Unavailable Alissa Perez PA-C Unavailable [phone] Lakshmi Wilhelm PA-C Unavailable [phone] Aidee Valero PA-C Unavailable [phone] Reason for Visit * Reason Onset Date Comments Orders 01/01/2022 Syringes - 35 an d 60 ml requested Encounter Details Date Type Department Care Team (Late st Contact Info) Description 01/01/2022 Telephone [facility] [address] 4th [place] [address] Carlos Joyner MD [address] [place] [address] Orders (Syringes - 35 and 60 ml [...] Answer Date Recorded PHQ-2 Score Incomplete 07/21/2024 [facility] of Occupat ional Health - Occupational Stress [...] in an overnight senior living, or couch-surfing.) No 07/16/2024 Are you worried [...] Travel Start Travel End [place] 08/13/2024 08/19/2024 COVID-19 Exposure Response Date Recorded In the last 10 days, have yo u been in contact with someone who was confirmed or suspected to have Coronavirus/COVID-19? No / Unsure 02/26/2023 10:28 AM CDT documented as of this encounter Miscellaneous Notes * Telephone Encounter - Sarika Gonsalez - 01/07/2022 3:56 PM CDT Images from the original note were not included. Analisa Palacio, RN You; Sharon Mckeon CMA; Mohini Diego [...] Roopa Hampton - 01/01/2022 3:42 PM CDT [facility] Phone Message May a detailed message be left on voicemail: yes Reason for Call: Order(s): Other: Reason for requested: Syringes - 35 ml and 60 ml syringes needed Date needed: RUPA Provider name: Anya Please fax order to [facility] at [phone]. Thank you. Action Taken: Other: Urology Travel Screening: Not Applicable documented in this encounter Plan of Treatment Upcoming Encounters Date Type Department Care Team (Late st Contact Info) Description 09/20/2024 11:00 AM CDT Office Visit [facility] [address] [phone] Sugey Mccoy APRN [facility]6 [address] [place] [address] [address] [place], [place] 137[address] 09/27/2024 1:40 PM CDT Ancillary Procedure [address] [place] [phone] [place] [address] [place], [place] 0119[address] 09/28/2024 10:30 AM CDT [facility] 2200 [facility] [address] [place] [address] [place] [address] [place], [place] [phone] Daly Edmonds, OT 909 [place] [address] Scheduled Procedures Name Priority Associated Diagnoses Date/Ti [...] documented as of this encounter Care Teams Spinner Cap Frame Relationship Specialty Start Date End Date Ignacia Duran MD PCP - General Pediatrics 01/20/20 03/04/23 [place] [address] [place] [address] PCP - General 03/05/23 Carlos Joyner MD 9 [place] [address] Urology 12/09/19 Jadon Murray MD [facility] 2530 [facility] 550 [place] [address] Referring Physician Pediatric Surgery 12/09/19 Maru Villagomez, RN Registered Nurse 12/10/19 Ang Slade MD [address] [address] Urology 04/24/20 Carlos Joyner MD [address] [place] [address] Assigned Surgical Provider 12/24/20 Annalise Orta PA-C 5[address] [facility] [place] [address] Assigned Cancer Care Provider 05/13/21 11/01/22 Ang Slade MD 420 [facility] 394 [place] [address] Urology 12/18/22 Lakshmi Wilhelm PA-C [address] [place] [address] Physician Aircraft Mechanic Armament Urology 02/03/23 [place] [address] [place] [address] Assigned PCP 02/06/23 Alissa Perez PA-C [address] [place] [address] Physician Aircraft Mechanic Armament Surgery 09/04/23 Lakshmi Wilhelm PA-C [address] [place] [address] Physician Aircraft Mechanic Armament Urology 09/16/23 Aidee Valero PA-C [address] [place] [address] Assigned Musculoskeletal Provider 04/17/24 Tanisha Marlow 4120 [facility] [address] 03/30/24 documented as of this encounter
--- OUTSIDE RECORDS SUMMARY | 2024-09-19 21:09 | XMS_ITS | Encounter Summary ---
Author Organization [place] Address [address] [place] [address]. [place] [address] Care Team Providers Care Tree Marker Name Role Phone Carlos Joyner MD Unavailable [phone] Jadon Murray MD Unavailable [phone] Maru Villagomez RN Unavailable Unavailable Ang Slade MD Unavailable [phone] Carlos Joyner MD Unavailable [phone] Ang Slade MD Unavailable [phone] Lakshmi Wilhelm PA-C Unavailable [phone] Heladio Willoughby MD Primary Care Provider [phone] Heladio Willoughby MD Unavailable Alissa Perez PA-C Unavailable [phone] Lakshmi Wilhelm PA-C Unavailable [phone] Aidee Valero PA-C Unavailable [phone] Encounter Details Date Type Department Care Team (Late st Contact Info) Description 04/08/2023 [facility] [place] [facility] [address] 4th [place] [address] Rosita Velasco, RN Social History [...] in an overnight snf, or couch-surfing.) Yes 04/11/2023 Are you worried [...] Description 09/20/2024 11:00 AM CDT Office Visit [address] [address] Sugey Mccoy, FREIGHT TRAFFIC CONSULTANT [facility] [place] [address] [place] [address] 454604 09/27/2024 1:40 PM CDT Ancillary Procedure [address] [place] [address] [place] [address] [place] [address] 09/28/2024 10:30 AM CDT Therapy Visit [facility] 2[address] [facility] [address] [place], [place] [address] [place] [address] [place] [address] Daly Edmonds, OT 909 [place], [place] 984535 Scheduled Procedures Name Priority Associated Diagnoses Date/Ti me NEPHROLITHOTOMY, PERCUTANEOU S, USING HOLMIUM LASER Kidney stone documented as of this encounter Visit Diagnoses Not on filedocumented in this encounter Care Teams Tree Marker Relationship Specialty Start [place] [address] [place] [address] PCP - General 03/05/23 Carlos Joyner MD [address] [place] [address] 922985 Urology 12/09/19 Jadon Murray MD [facility] [address] [facility] 550 [place] [address] Referring Physician Pediatric Surgery 12/09/19 Maru Villagomez, RN Registered Nurse 12/10/19 Ang Slade MD [address] [place] [address] 394 [place], [place] 646405 Urology 04/24/20 Carlos Joyner MD [address] [place] [address] 094535 Assigned Surgical Provider 12/24/20 Ang Slade MD [address] [place] [address] 044405 Urology 12/18/22 Lakshmi Wilhelm PA-C [address] [place] [address] 237615 Physician Calf Skinner Urology 02/03/23 [place] [address] [place] [address] Assigned PCP 02/06/23 Alissa Perez PA-C [address] [place] [address] Physician Calf Skinner Surgery 09/04/23 Lakshmi Wilhelm PA-C [address] [place] [address] Physician Calf Skinner Urology 09/16/23 Aidee Valero PA-C [address] [place] [address] Assigned Musculoskeletal Provider 04/17/24 Tanisha Marlow 4120 [facility] [address] 03/30/24 documented as of this encounter
--- OUTSIDE RECORDS SUMMARY | 2024-09-19 21:09 | XMS_ITS | Encounter Summary ---
Author Organization [place] Address [address] [place] [address]. [place] [address] Care Team Providers Care Greenhouse Florist Name Role Phone Carlos Joyner MD Unavailable [phone] Jadon Murray MD Unavailable [phone] Maru Villagomez RN Unavailable Unavailable Ang Slade MD Unavailable [phone] Carlos Joyner MD Unavailable [phone] Ang Slade MD Unavailable [phone] Lakshmi Wilhelm PA-C Unavailable [phone] Heladio Willoughby MD Primary Care Provider [phone] Heladio Willoughby MD Unavailable Alissa Perez PA-C Unavailable [phone] Lakshmi Wilhelm PA-C Unavailable [phone] Aidee Valero PA-C Unavailable [phone] Encounter Details Date Type Department Care Team (Late st Contact Info) Description 05/05/2023 [facility] [place] Adv[place] [facility] [address] 4th [place] [address] Rosita Velasco, RN Social History [...] file Travel History Travel Start Travel End [place] 08/13/2024 08/19/2024 documented as of this encounter Plan of Treatment Upcoming Encounters Date Type Department Care Team (Late st Contact Info) Description 09/20/2024 11:00 AM CDT Office Visit [address] [address] Sugey Mccoy, TICKET AGENT [facility] [address] [place] [address] [address] [place], [place] 659994 09/27/2024 1:40 PM CDT Ancillary Procedure [address] [place] [address] [place] [address] [place] [address] 09/28/2024 10:30 AM CDT Therapy Visit [facility] 2[address] [facility] [address] [place], [place] 68[address] [place] [address] [place] [address] Daly Edmonds, OT 909 [place], [place] 527645 Scheduled Procedures Name Priority Associated Diagnoses Date/Ti me NEPHROLITHOTOMY, PERCUTANEOU S, USING HOLMIUM LASER Kidney stone documented as of this encounter Visit Diagnoses Not on filedocumented in this encounter Care Teams Greenhouse Florist Relationship Specialty Start [place] [address] [place] [address] PCP - General 03/05/23 Carlos Joyner MD [address] [place] [address] 516095 Urology 12/09/19 Jadon Murray MD [facility] 2530 [facility] 550 [place] [address] Referring Physician Pediatric Surgery 12/09/19 Maru Villagomez, RN Registered Nurse 12/10/19 Ang Slade MD [address] [place] [address] 394 [place], [place] 182125 Urology 04/24/20 Carlos Joyner MD [address] [place] [address] 088425 Assigned Surgical Provider 12/24/20 Ang Slade MD [address] [place] [address] 715015 Urology 12/18/22 Lakshmi Wilhelm PA-C [address] [place] [address] 597775 Physician Salesperson [employer] Urology 02/03/23 [place] [address] [place] [address] Assigned PCP 02/06/23 Alissa Perez PA-C [address] [place] [address] Physician Salesperson [employer] Surgery 09/04/23 Lakshmi Wilhelm PA-C [address] [place] [address] Physician Salesperson [employer] Urology 09/16/23 Aidee Valero PA-C [address] [place] [address] Assigned Musculoskeletal Provider 04/17/24 Tanisha Marlow 4120 [facility] [address] 03/30/24 documented as of this encounter
--- OUTSIDE RECORDS SUMMARY | 2024-09-19 21:09 | XMS_ITS | Encounter Summary ---
Author Organization [place] Address [address] [place] [address] Care Team Providers Care Blueprint Blocker Name Role Phone Carlos Joyner MD Unavailable [phone] Jadon Murray MD Unavailable [phone] Maru Villagomez RN Unavailable Unavailable Ignacia Duran MD Primary Care Provider Ang Slade MD Unavailable Carlos Joyner MD Unavailable [phone] Annalise Orta PA-C Unavailable Ang Slade MD Unavailable Lakshmi Wilhelm-C Unavailable [phone] Heladio Willoughby MD Primary Care Provider [phone] Heladio Willoughby MD Unavailable Alissa Perez PA-C Unavailable [phone] Lakshmi Wilhelm PA-C Unavailable Aidee Valero PA-C Unavailable [phone] Encounter Details Date Type Department Care Team (Late st Contact Info) Description 09/17/2021 [facility] Urology Clinic [address] [place] [address] Carlos Joyner MD [address] [place] [address] Social History Tobacco Use Types Packs/Day [...] 09/20/2024 11:00 AM CDT Office Visit [address] [phone] Sugey cMcoy, COOPERATIVE EDUCATION DIRECTOR [facility] [address] [place] [address] [address] [place], [place] 227154 09/27/2024 1:40 PM CDT Ancillary Procedure [address] [place] [phone] [place] [address] [place] [address] 09/28/2024 10:30 AM CDT Therapy Visit [facility] 2200 [facility] [address] [place], [place] [phone] [place] [address] [place] [place], [place] 1378768 Daly Edmonds, OT [address] [place] [address] Scheduled Procedures Name Priority Associated Diagnoses Date/Ti [...] documented as of this encounter Care Teams Blueprint Blocker Relationship Specialty Start Date End Date Ignacia Duran MD PCP - General Pediatrics 01/20/20 03/04/23 [place] [address] [place] [address] PCP - General 03/05/23 Carlos Joyner MD 9 [place] [address] Urology 12/09/19 Jadon Murray MD [facility] 2530 [facility] [address] 550 [place] [address] Referring Physician Pediatric Surgery 12/09/19 Maru Villagomez, OTILIO Registered Nurse 12/10/19 Ang Slade MD [address] [place] [address] 394 [place], [place] 980155 Urology 04/24/20 Carlos Joyner MD 9 [place] [address] Assigned Surgical Provider 12/24/20 Annalise Orta PA-C [address] [place] [address] Assigned Cancer Care Provider 05/13/21 11/01/22 Ang Slade MD [address] [place] [address] 871275 Urology 12/18/22 Lakshmi Wilhelm PA-C [address] [place] [address] 662525 Physician Drafter Landscape Urology 02/03/23 [place] [address] [place] [address] Assigned PCP 02/06/23 Alissa Perez PA-C [address] [place] [address] Physician Drafter Landscape Surgery 09/04/23 Lakshmi Wilhelm PA-C [address] [place] [address] Physician Drafter Landscape Urology 09/16/23 Aidee Valero PA-C [address] [place] [address] Assigned Musculoskeletal Provider 04/17/24 Tanisha Marlow 4120 [facility] [address] 03/30/24 documented as of this encounter
--- OUTSIDE RECORDS SUMMARY | 2024-09-19 21:09 | XMS_ITS | Encounter Summary ---
Author Organization [place] Address [address] [place] [address] Care Team Providers Care Cvt Rn Name Role Phone Carlos Joyner MD Unavailable [phone] Jadon Murray MD Unavailable [phone] Maru Villagomez RN Unavailable Unavailable Ang Slade MD Unavailable [phone] Carlos Joyner MD Unavailable [phone] Ang Slade MD Unavailable [phone] Lakshmi Wilhelm-C Unavailable Heladio Willoughby MD Primary Care Provider [phone] Heladio Willoughby MD Unavailable Alissa Perez PA-C Unavailable [phone] Lakshmi Wilhelm-C Unavailable Aidee Valero PA-C Unavailable Reason for Visit * Reason Onset Date Comments Prior Auth - Medication 07/27/2024 COMPOUND ED NON-CONTROLLED SUBSTANCE (CMPD RX) - PHARMACY TO MIX COMPOUNDED MEDICATION--DENIED Encounter Details Date Type Department Care Team (Late st Contact Info) Description 07/27/2024 [facility] Urology Clinic [address] [place] [address] Carlos Joyner MD [address] [place] [address] Prior Auth - Medication (COMPOUNDED NON-CONTROLLED [...] Answer Date Recorded PHQ-2 Score Incomplete 07/21/2024 [facility] - Occupational Stress Questionnaire [...] Telephone Encounter - Rosita Velasco RN - 08/11/2024 9:03 AM CDT RN received email from patient's guarding regarding this PA. Called the [facility], who said that the PA process is complete and the insurance will not cover. RN called patient's guardian to relay this info. [facility] Physical Therapist- Urology [phone] * Telephone Encounter - Rosita Velasco RN - 08/04/2024 2:31 PM CDT Called the number provided to an expedite phone appeal. This was denied. The termite control representative advisedthe claim will be sent for second level appeal. RN called [facility] pharmacy to update them. [facility] Physical Therapist- Urology [phone] * Telephone Encounter - Daly [place] - 08/03/2024 12:07 PM CDT Images from the original note were not included. PRIOR AUTHORIZATION DENIED Medication: COMPOUNDED NON-CONTROLLED (CMPD RX) - PHARMACY TO MIX COMPOUNDED MEDICATION Insurance Company: [employer] Part D - Denial Date: 07/30/2024 Denial Reason(s): Excluded Appeal Information: * Telephone Encounter - Daly [place] - 07/29/2024 3:17 PM CST Images from the original note were not included. PA Initiation Medication: COMPOUNDED NON-CONTROLLED (CMPD RX) - PHARMACY TO MIX COMPOUNDED MEDICATION Insurance Company: [employer] Part D - Pharmacy Filling the Rx: [facility] - [place], [place] - [address] [facility] Filling Pharmacy Start Date: 07/29/2024 AND BREAKFAST OPERATOR * Telephone Encounter - Yovana Burt - 07/27/2024 1:05 PM CST A prior authorization is needed for the following compounded medications prescribed. Please complete a prior authorization with the information included below. Medication: Compounded Gentamicin 480 mg/L Bladder Irrigation Ingredients NDCs Quantities Gentamicin Sulfate 40 mg/mL Solution [address]-75 10.800 mLs Sodium Chloride 0.9% Solution [id number] 889.200 mLs BD Syringe 50 mL [id number] 30.000 grams RX #: Reason for Rejection:[id number] Pharmacy Insurance plan: [employer] Part D BIN #:[id number] ID #:[id number] PCN #:[id number] Phone #:[phone] Pharmacy Please advise the [facility] @ [phone] when the prior authorization is approved or denied. Additionally, this medication is no longer covered by the secondary [facility] plan (what the patient now has), so there may be a copay associated with the medication once it is approved. Thank you for your time. [email or web address] [address] [place] [address] AND BREAKFAST OPERATOR documented in this encounter Plan of Treatment Upcoming Encounters Date Type Department Care Team (Late st Contact Info) Description 09/20/2024 11:00 AM CDT Office Visit [address] [place] [phone] Sugey Mccoy, FACTORY ENGINEER [facility] [address] [place] [address] [address] [place], [place] 425904 09/27/2024 1:40 PM CDT Ancillary Procedure [address] [place] [address] [place] [address] [place], [place] 8265868 09/28/2024 10:30 AM CDT Therapy Visit [facility] 2[address] [facility] [address] [place], [place] 8[address] [place] [address] [place], [place] 5146368 Daly Edmonds, OT 9 [place], [place] 058875 Scheduled Procedures Name Priority Associated Diagnoses Date/Ti me NEPHROLITHOTOMY, PERCUTANEOU S, USING HOLMIUM LASER Kidney stone documented as of this encounter Visit Diagnoses Not on filedocumented in this encounter Care Teams Cvt Rn Relationship Specialty Start [place] [address] [facility] [place] [address] PCP - General 03/05/23 Carlos Joyner MD [address] [place] [address] Urology 12/09/19 Jadon Murray MD [facility] 2530 [facility] 550 [place] [address] Referring Physician Pediatric Surgery 12/09/19 Maru Villagomez, RN Registered Nurse 12/10/19 Ang Slade MD [address] [place] [address] 394 [place], [place] 250555 Urology 04/24/20 Carlos Joyner MD [address] [place] [address] 390365 Assigned Surgical Provider 12/24/20 Ang Slade MD [address] [place] [address] 394 [place], [place] 0[address]495 Urology 12/18/22 Lakshmi Wilhelm PA-C [address] [place] [address] 129685 Physician Glass Silverer Urology 02/03/23 [place] [address] [place] [address] Assigned PCP 02/06/23 Alissa Perez PA-C [address] [place] [address] 513605 Physician Glass Silverer Surgery 09/04/23 Lakshmi Wilhelm PA-C [address] [place] [address] 476825 Physician Glass Silverer Urology 09/16/23 Aidee Valero PA-C 9 [place] [address] Assigned Musculoskeletal Provider 04/17/24 Tanisha Marlow 4120 [facility] [address] 03/30/24 documented as of this encounter
--- OUTSIDE RECORDS SUMMARY | 2024-09-19 21:09 | XMS_ITS | Encounter Summary ---
Author Organization [place] Address [address] [place] [address]. [place] [address] Care Team Providers Care Equity Analyst Name Role Phone Carlos Joyner MD Unavailable [phone] Jadon Murray MD Unavailable [phone] Maru Villagomez RN Unavailable Unavailable Ang Slade MD Unavailable [phone] Carlos Joyner MD Unavailable [phone] Ang Slade MD Unavailable [phone] Lakshmi Wilhelm PA-C Unavailable [phone] Heladio Willoughby MD Primary Care Provider [phone] Heladio Willoughby MD Unavailable Alissa Perez PA-C Unavailable [phone] Lakshmi Wilhelm-C Unavailable [phone] Aidee Valero PA-C Unavailable [phone] Encounter Details Date Type Department Care Team (Late st Contact Info) Description 07/09/2024 [facility] Medical Advice [facility] Urology Clinic [address] [place] [address] Hattie Wing, RN Social History [...] file Travel History Travel Start Travel End [place] 08/13/2024 08/19/2024 documented as of this encounter Plan of Treatment Upcoming Encounters Date Type Department Care Team (Late st Contact Info) Description 09/20/2024 11:00 AM CDT Office Visit [address] [address] Sugey Mccoy, MEDICAL TRANSCRIBER [facility]6 [address] [place] [address] [place] [address] 887454 09/27/2024 1:40 PM CDT Ancillary Procedure [address] [place] [address] [place] [address] [place] [address] 09/28/2024 10:30 AM CDT Therapy Visit [facility] 2200 [facility] [address] [place], [place] [phone] [place] [address] [place] [address] Daly Edmonds, OT 909 [place], [place] 342505 Scheduled Procedures Name Priority Associated Diagnoses Date/Ti me NEPHROLITHOTOMY, PERCUTANEOU S, USING HOLMIUM LASER Kidney stone documented as of this encounter Visit Diagnoses Not on filedocumented in this encounter Care Teams Equity Analyst Relationship Specialty Start [place] [address] [place] [address] PCP - General 03/05/23 Carlos Joyner MD [address] [place] [address] Urology 12/09/19 Jadon Murray MD [facility] 2530 [facility] [address] 550 [place] [address] Referring Physician Pediatric Surgery 12/09/19 Maru Villagomez, RN Registered Nurse 12/10/19 Ang Slade MD [address] [place] [address] 394 [place], [place] 227915 Urology 04/24/20 Carlos Joyner MD [address] [place] [address] Assigned Surgical Provider 12/24/20 Ang Slade MD [address] [place] [address] 557685 Urology 12/18/22 Lakshmi Wilhelm PA-C [address] [place] [address] Physician Technical Training Coordinator Urology 02/03/23 [place] [address] [place] [address] Assigned PCP 02/06/23 Alissa Perez PA-C [address] [place] [address] Physician Technical Training Coordinator Surgery 09/04/23 Lakshmi Wilhelm PA-C [address] [place] [address] Physician Technical Training Coordinator Urology 09/16/23 Aidee Valero PA-C [address] [place] [address] Assigned Musculoskeletal Provider 04/17/24 Tanisha Marlow 4120 [facility] [address] 03/30/24 documented as of this encounter
--- OUTSIDE RECORDS SUMMARY | 2024-09-19 21:09 | XMS_ITS | Encounter Summary ---
Author Organization [place] Address [address] [place] [address] Care Team Providers Care Last Repairer Helper Name Role Phone Carlos Joyner MD Unavailable [phone] Jadon Murray MD Unavailable [phone] Maru Villagomez RN Unavailable Unavailable Ignacia Duran MD Primary Care Provider Ang Slade MD Unavailable [phone] Carlos Joyner MD Unavailable +[phone] Annalise Orta PA-C Unavailable [phone] Ang Slade MD Unavailable [phone] Lakshmi Wilhelm-C Unavailable [phone] Heladio Willoughby MD Primary Care Provider [phone] Heladio Willoughby MD Unavailable Alissa Perez PA-C Unavailable [phone] Lakshmi Wilhelm PA-C Unavailable [phone] Aidee Valero PA-C Unavailable [phone] Encounter Details Date Type Department Care Team (Late st Contact Info) Description 04/16/2021 [facility] [address] [place] [address] Berna Britton Social History Tobacco [...] 09/20/2024 11:00 AM CDT Office Visit [address] [phone] Sugey Mccoy, MANNEQUIN WIG MAKER [address] [place], [place] [address] 09/27/2024 1:40 PM CDT Ancillary Procedure [address] [place] [phone] [place] [address] [place] [address] 09/28/2024 10:30 AM CDT Therapy Visit [facility] Rehabilitation [facility] 2200 [facility] [address] [place] [address] [place] [address] [place], [place] [phone] Daly Edmonds, OT [address] [place] [address] Scheduled Procedures Name Priority Associated Diagnoses Date/Ti [...] documented as of this encounter Care Teams Last Repairer Helper Relationship Specialty Start Date End Date Ignacia Duran MD PCP - General Pediatrics 01/20/20 03/04/23 [place] [address] [facility] [place] [address] PCP - General 03/05/23 Carlos Joyner MD 9 [place] [address] Urology 12/09/19 Jadon Murray MD [facility] 2530 [facility] 550 [place] [address] Referring Physician Pediatric Surgery 12/09/19 Maru Villagomez, RN Registered Nurse 12/10/19 Ang Slade MD [address] [place] [address] 167685 Urology 04/24/20 Carlos Joyner MD [address] [place] [address] Assigned Surgical Provider 12/24/20 Annalise Orta PA-C 5200 [place] [address] Assigned Cancer Care Provider 05/13/21 11/01/22 Ang Slade MD [address] [address] Urology 12/18/22 Lakshmi Wilhelm PA-C [address] [place] [address] Physician Aircraft Powertrain Repairer Urology 02/03/23 [place] [address] [place] [address] Assigned PCP 02/06/23 Alissa Perez PA-C [address] [place] [address] Physician Aircraft Powertrain Repairer Surgery 09/04/23 Lakshmi Wilhelm PA-C [address] [place] [address] Physician Aircraft Powertrain Repairer Urology 09/16/23 Aidee Valero PA-C [address] [place] [address] Assigned Musculoskeletal Provider 04/17/24 Tanisha Marlow 4120 [facility] [address] 03/30/24 documented as of this encounter
--- OUTSIDE RECORDS SUMMARY | 2024-09-19 21:09 | XMS_ITS | Encounter Summary ---
Author Organization [place] Address [address] [place] [address] Care Team Providers Care Interlocking Installer Name Role Phone Carlos Joyner MD Unavailable [phone] Jadon Murray MD Unavailable [phone] Maru Villagomez RN Unavailable Unavailable Ignacia Duran MD Primary Care Provider [phone] Ang Slade MD Unavailable [phone] Carlos Joyner MD Unavailable [phone] Annalise Orta PA-C Unavailable +[phone] Ang Slade MD Unavailable [phone] Lakshmi Wilhelm-C Unavailable [phone] Heladio Willoughby MD Primary Care Provider [phone] Heladio Willoughby MD Unavailable Alissa Perez PA-C Unavailable [phone] Lakshmi Wilhelm PA-C Unavailable [phone] Aidee Valero PA-C Unavailable +[phone] Encounter Details Date Type Department Care Team (Late st Contact Info) Description 06/19/2021 [facility] [address] [address] Jenan Mcfadden, RN Social History Tobacco Use Types Packs/Day Years Used Date Smoking Tobacco: Never Smokeless Tobacco: Never PHQ-2 Answer Date Recorded PHQ-2 Score 0 05/03/2021 Comments No Sex and Gender Information Value Date Recorded Sex Assigned at Not on file Legal Sex Female 3:09 PM CDT Gender Identity Not on file Sexual Orientation Not on file Travel History Travel Start Travel End [place] 08/13/2024 08/19/2024 COVID-19 Exposure Response Date Recorded In the last month, have you been in contact with someone who was confirmed or suspected to have Coronavirus / COVID-19? No / Unsure 06/19/2021 11:16 AM POLICE STENOGRAPHER documented as of this encounter Plan of Treatment Upcoming Encounters Date Type Department Care Team (Late st Contact Info) Description 09/20/2024 11:00 AM CDT Office Visit [address] [phone] Sugey Mccoy APRN [facility] [place] [address] 106 [place], [place] 7[address]74 09/27/2024 1:40 PM CDT Ancillary Procedure [address] [place] [phone] [place] [address] [place] [address] 09/28/2024 10:30 AM CDT Therapy Visit [facility] [address] [facility] [address] [place] [address] [place] [address] [place], [place] [phone] Daly Edmonds, OT 909 [place] [address] Scheduled Procedures Name Priority Associated Diagnoses Date/Ti [...] documented as of this encounter Care Teams Interlocking Installer Relationship Specialty Start Date End Date Ignacia Duran MD PCP - General Pediatrics 01/20/20 03/04/23 [place] [address] [place] [address] PCP - General 03/05/23 Carlos Joyner MD [address] [place] [address] Urology 12/09/19 Jadon Murray MD [facility] [address] [address] Referring Physician Pediatric Surgery 12/09/19 Maru Villagomez, OTILIO Registered Nurse 12/10/19 Ang Slade MD [address] [place] [address] 130495 Urology 04/24/20 Carlos Joyner MD [address] [place] [address] Assigned Surgical Provider 12/24/20 Annalise Orta PA-C 5200 [place] [address] Assigned Cancer Care Provider 05/13/21 11/01/22 Ang Slade MD [address] [place] [address] Urology 12/18/22 Lakshmi Wilhelm PA-C [address] [place] [address] Physician Safety Deposit Supervisor Urology 02/03/23 [place] [address] [place] [address] Assigned PCP 02/06/23 Alissa Perez PA-C [address] [place] [address] Physician Safety Deposit Supervisor Surgery 09/04/23 Lakshmi Wilhelm PA-C [address] [place] [address] Physician Safety Deposit Supervisor Urology 09/16/23 Aidee Valero PA-C [address] [place] [address] Assigned Musculoskeletal Provider 04/17/24 Tanisha Marlow 4120 [facility] [address] 03/30/24 documented as of this encounter
--- OUTSIDE RECORDS SUMMARY | 2024-09-19 21:09 | XMS_ITS | Encounter Summary ---
Author Organization [place] Address [address] [place] [address] Care Team Providers Care Audit Mgr Name Role Phone Carlos Joyner MD Unavailable [phone] Jadon Murray MD Unavailable [phone] Maru Villagomez RN Unavailable Unavailable Ignacia Duran MD Primary Care Provider Ang Slade MD Unavailable [phone] Carlos Joyner MD Unavailable [phone] Annalise Orta PA-C Unavailable Ang Slade MD Unavailable [phone] Lakshmi Wilhelm-C Unavailable [phone] Heladio Willoughby MD Primary Care Provider [phone] Heladio Willoughby MD Unavailable Alissa Perez PA-C Unavailable [phone] Lakshmi Wilhelm-C Unavailable Aidee Valero PA-C Unavailable [phone] Reason for Visit * Reason Onset Date Comments Call Back 06/27/2021 Bladder infectio n Encounter Details Date Type Department Care Team (Late st Contact Info) Description 06/27/2021 Telephone [facility] [address] 4th [place] [address] Carlos Joyner MD [address] [place] [address] Call Back (Bladder infection) Social History [...] 07/16/2024 Attends [employer]ze Services Not on file 07/16 Active Member of Clubs or Organizations Not on f ile 07/16/2024 Attends Club or Organization Meetings Not on antelmo e 07/16/2024 Marital Status Not on file 07/16/2024 PHQ-2 Answer Date Recorded PHQ-2 Score Incomplete 07/21/2024 [facility] - Occupational Stress [...] In the last 10 days, have ivelisse u been in contact with someone who was confirmed or suspected to have Coronavirus/COVID-19? No / Unsure 02/26/2023 10:28 AM CDT documented as of this encounter Miscellaneous Notes * Telephone Encounter - Karen Sheth - 06/27/2021 12:22 PM CST [facility] Call Center Phone Message May [...] Center ([facility]): uro Travel Screening: Not Applicable SPORTATION MANAGER documented in this encounter Plan of Treatment Upcoming Encounters Date Type Department Care Team (Late st Contact Info) Description 09/20/2024 11:00 AM CDT Office Visit [address] [address] Sugey Mccoy, FILLER SIFTER MACHINE [address] [address] 09/27/2024 1:40 PM CDT Ancillary Procedure [address] [place] [address] [place] [address] [place] [address] [place] [address] 09/28/2024 10:30 AM CDT Therapy Visit [facility] [address] [facility] [address] [place] [address] [place] [address] [place] [address] Daly Edmonds, OT 909 [place] [address] Scheduled Procedures Name Priority Associated Diagnoses Date/Ti [...] documented as of this encounter Care Teams Audit Mgr Relationship Specialty Start Date End Date Ignacia Duran MD PCP - General Pediatrics 01/20/20 03/04/23 [place] [address] [place] [address] PCP - General 03/05/23 Carlos Joyner MD 909 [place], [place] 961725 Urology 12/09/19 Jadon Murray MD [facility] 2530 [facility] [address] [address] Referring Physician Pediatric Surgery 12/09/19 Hernando, Maru, RN Registered Nurse 12/10/19 Ang Slade MD [address] [address] Urology 04/24/20 Carlos Joyner MD [address] [place] [address] 105795 Assigned Surgical Provider 12/24/20 Annalise Orta PA-C 5200 [place] [address] Assigned Cancer Care Provider 05/13/21 11/01/22 Ang Slade MD [address] [place] [address] Urology 12/18/22 Lakshmi Wilhelm PA-C [address] [place] [address] 267975 Physician Mesh Man Urology 02/03/23 [place] [address] [place] [address] Assigned PCP 02/06/23 Alissa Perez PA-C [address] [place] [address] 632045 Physician Mesh Man Surgery 09/04/23 Lakshmi Wilhelm PA-C [address] [place] [address] Physician Mesh Man Urology 09/16/23 Aidee Valero PA-C 909 [place] [address] Assigned Musculoskeletal Provider 04/17/24 Tanisha Marlow 4120 [facility] [address] 03/30/24 documented as of this encounter
--- OUTSIDE RECORDS SUMMARY | 2024-09-19 21:09 | XMS_ITS | Encounter Summary ---
Author Organization [place] Address [address] [place] [address] Care Team Providers Care Line Controller Name Role Phone Carlos Joyner MD Unavailable [phone] Jadon Murray MD Unavailable [phone] Maru Villagomez RN Unavailable Unavailable Ignacia Duran MD Primary Care Provider [phone] Ang Slade MD Unavailable [phone] Carlos Joyner MD Unavailable [phone] Annalise Orta PA-C Unavailable [phone] Ang Slade MD Unavailable [phone] Lakshmi Wilhelm PA-C Unavailable [phone] Heladio Willoughby MD Primary Care Provider [phone] Heladio Willoughby MD Unavailable Alissa Perez PA-C Unavailable [phone] Lakshmi Wilhelm PA-C Unavailable [phone] Aidee Valero PA-C Unavailable [phone] Encounter Details Date Type Department Care Team (Late st Contact Info) Description 07/19/2021 [facility] [place] 913719 [facility] 4th [place] [address] Shyann Rehman Social History Tobacco [...] COVID-19? No / Unsure 06/19/2021 11:16 AM MEDIA INTERN documented as of this encounter Plan of Treatment Upcoming Encounters Date Type Department Care Team (Late st Contact Info) Description 09/20/2024 11:00 AM CDT Office Visit [address] [phone] Sugey Mccoy APRN [address] [place], [place] [address] 09/27/2024 1:40 PM CDT Ancillary Procedure [address] [place] [phone] [place] [address] [place] [address] 09/28/2024 10:30 AM CDT Therapy Visit [facility] [address] [facility] [address] [place] [address] [place] [address] [place] [address] Daly Edmonds, OT 909 [place] [address] Scheduled Procedures Name Priority Associated Diagnoses Date/Ti [...] documented as of this encounter Care Teams Line Controller Relationship Specialty Start Date End Date Ignacia Duran MD PCP - General Pediatrics 01/20/20 03/04/23 [place] [address] [place] [address] PCP - General 03/05/23 Carlos Joyner MD [address] [place] [address] Urology 12/09/19 Jadon Murray MD [facility] [address] [address] Referring Physician Pediatric Surgery 12/09/19 Maru Villagomez, OTILIO Registered Nurse 12/10/19 Ang Slade MD [address] [place] [address] 614745 Urology 04/24/20 Carlos Joyner MD [address] [place] [address] Assigned Surgical Provider 12/24/20 Annalise Orta PA-C 5200 [place] [address] Assigned Cancer Care Provider 05/13/21 11/01/22 Ang Slade MD [address] [place] [address] Urology 12/18/22 Lakshmi Wilhelm PA-C [address] [place] [address] Physician Sweatband Flanger Urology 02/03/23 [place] [address] [place] [address] Assigned PCP 02/06/23 Alissa Perez PA-C [address] [place] [address] Physician Sweatband Flanger Surgery 09/04/23 Lakshmi Wilhelm PA-C [address] [place] [address] Physician Sweatband Flanger Urology 09/16/23 Aidee Valero PA-C [address] [place] [address] Assigned Musculoskeletal Provider 04/17/24 Tanisha Marlow 4120 [facility] [address] 03/30/24 documented as of this encounter
--- OUTSIDE RECORDS SUMMARY | 2024-09-19 21:09 | XMS_ITS | Encounter Summary ---
Author Organization [place] Address [address] [facility] [place] [address] Care Team Providers Care Medical Lab Tech Instructor Name Role Phone Carlos Joyner MD Unavailable [phone] Jadon Murray MD Unavailable [phone] Maru Villagomez RN Unavailable Unavailable Ang Slade MD Unavailable [phone] Carlos Joyner MD Unavailable [phone] Ang Slade MD Unavailable [phone] Lakshmi Wilhelm PA-C Unavailable [phone] Heladio Willoughby MD Primary Care Provider [phone] Heladio Willoughby MD Unavailable Alissa Perez PA-C Unavailable [phone] Lakshmi Wilhelm PA-C Unavailable [phone] Aidee Valero PA-C Unavailable [phone] Encounter Details Date Type Department Care Team (Late st Contact Info) Description 03/27/2023 MyC Medical Advice UR PREOP/PHASE II 2450 [place] [phone] Lisette Salinas RN Social History Tobacco Use [...] Description 09/20/2024 11:00 AM CDT Office Visit [address] [address] Sugey Mccoy, NESTOR [address] [address] 09/27/2024 1:40 PM CDT Ancillary Procedure [address] 100 [place] [phone] [place] [address] [place] [address] 09/28/2024 10:30 AM CDT Therapy Visit [facility] [address] [place] [address] [address] [place], [place] [phone] [place] [address] [place] [address] Daly Edmonds, OT 909 [place], [place] 219995 Scheduled Procedures Name Priority Associated Diagnoses Date/Ti me NEPHROLITHOTOMY, PERCUTANEOU S, USING HOLMIUM LASER Kidney stone documented as of this encounter Visit Diagnoses Not on filedocumented in this encounter Care Teams Medical Lab Tech Instructor Relationship Specialty Start [place] [address] [place] [address] PCP - General 03/05/23 Carlos Joyner MD [address] [place] [address] Urology 12/09/19 Jadon Murray MD [facility] 2530 [facility] 550 [place] [address] Referring Physician Pediatric Surgery 12/09/19 Maru Villagomez, OTILIO Registered Nurse 12/10/19 Ang Slade MD [address] [place] [address] 394 [place] [address] Urology 04/24/20 Carlso Joyner MD [address] [place] [address] Assigned Surgical Provider 12/24/20 Ang Slade MD [address] [place] [address] Urology 12/18/22 Lakshmi Wilhelm PA-C [address] [place] [address] Physician Product Tester Urology 02/03/23 [place] [address] [place] [address] Assigned PCP 02/06/23 Alissa Perez PA-C [address] [place] [address] Physician Product Tester Surgery 09/04/23 Lakshmi Wilhelm PA-C [address] [place] [address] Physician Product Tester Urology 09/16/23 Aidee Valero PA-C [address] [place] [address] Assigned Musculoskeletal Provider 04/17/24 Tanisha Marlow 4120 [facility] [address] 03/30/24 documented as of this encounter
--- OUTSIDE RECORDS SUMMARY | 2024-09-19 21:09 | XMS_ITS | Clinical Summary ---
Author Organization [facility] Address [address] [place] [address] Care Team Providers Care Dining Room Manager Name Role Phone Ignacia Duran MD Primary Care Provider [phone] Allergies Active Allergy Reactions Criticality Noted Date [...] recurrent major depressive d isorder 11/23/2018 S/P QUALITY CONTROL TESTER shunt 04/29/2011 UTI (urinary tract infection) 04/24/2011 Paraplegia 02/21/2009 Spina bifida of dorsal region 02/21/2009 Resolved Problems Problem Noted Date Diagnosed Date Resolved Date Adjustment disorder with mix ed disturbance of emotions and conduct 07/04/2011 11/23/2018 Immunizations Immunization Administration Dates Next Due DTaP 01/18/2008,05/06/2005 [id number] (Pediarix) 05/27/2003,03/21/2003,0 2002 HIB PRP-T (ActHIB,Hiberix) 05/27/2003,03/21/2003 [...] on file Legal Sex Female 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 Gender Identity Not on file Sexual Orientation [...] Comments Blood Pressure 123/80 07/12/2021 1:30 PM FIBERGLASS TECHNICIAN Pulse 98 07/12/2021 1:30 PM FIBERGLASS TECHNICIAN Temperature 36.9 C (98.5 F) 07/12/2021 1:30 PM FIBERGLASS TECHNICIAN Respiratory Rate 18 07/03/2015 5:27 PM FIBERGLASS TECHNICIAN Oxygen Saturation 98% 07/12/2021 1:30 PM FIBERGLASS TECHNICIAN Inhaled Oxygen Concentration - - Weight 61.2 kg (135 lb) 07/03/2015 5:27 PM FIBERGLASS TECHNICIAN Height - - Body Mass Index - [...] 2024 05/02/2022, 03/27/2021, 09/18/2020, Additional history exists Tetanus booster 01/16/2025 01/16/2015, 01/16/2015 Influenza Vaccine (Season Ended) 2025 03/27/2021, 03/22/2020, 06/17/2019, Additional history exists Pneumococcal series for age 6-49 Aged Out 05/27/2003, 03/21/2003, 2002 No longer eligible based on patient's age to complete this topic Tdap Completed 01/16/2015, 01/16/[address] 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
--- OUTSIDE RECORDS SUMMARY | 2024-09-19 21:09 | XMS_ITS | Encounter Summary ---
Author Organization [place] Address [address] [place] [address] Care Team Providers Care Microstrategy Architect Developer Name Role Phone Carlos Joyner MD Unavailable [phone] Jadon Murray MD Unavailable [phone] Maru Villagomez RN Unavailable Unavailable Ang Slade MD Unavailable [phone] Carlos Joyner MD Unavailable [phone] Ang Slade MD Unavailable [phone] Lakshmi Wilhelm PA-C Unavailable Heladio Willoughby MD Primary Care Provider [phone] Heladio Willoughby MD Unavailable Alissa Perez PA-C Unavailable [phone] Lakshmi Wilhelm PA-C Unavailable [phone] Aidee Valero PA-C Unavailable [phone] Encounter Details Date Type Department Care Team (Late st Contact Info) Description 02/13/2024 [facility] [address] [place] [address] Carlos Joyner MD [address] [place] [address] Social History Tobacco Use Types Packs/Day [...] file Travel History Travel Start Travel End [place] 08/13/2024 08/19/2024 documented as of this encounter Plan of Treatment Upcoming Encounters Date Type Department Care Team (Late st Contact Info) Description 09/20/2024 11:00 AM CDT Office Visit [address] [address] Sugey Mccoy, BINDING FOLDER MACHINE [address] [address] 09/27/2024 1:40 PM CDT Ancillary Procedure [address] [place] [address] [place] [address] [place] [address] 09/28/2024 10:30 AM CDT Therapy Visit [facility] [address] [facility] [address] [place] [address] [place] [address] [place] [address] Daly Edmonds, OT 909 [place], [place] 566595 Scheduled Procedures Name Priority Associated Diagnoses Date/Ti me NEPHROLITHOTOMY, PERCUTANEOU S, USING HOLMIUM LASER Kidney stone documented as of this encounter Visit Diagnoses Not on filedocumented in this encounter Care Teams Microstrategy Architect Developer Relationship Specialty Start [place] [address] [place] [address] PCP - General 03/05/23 Carlos Joyner MD [address] [place] [address] 037545 Urology 12/09/19 Jadon Murray MD [facility] 2530 [facility] 550 [place] [address] Referring Physician Pediatric Surgery 12/09/19 Maru Villagomez, OTILIO Registered Nurse 12/10/19 Ang Slade MD [address] [place] [address] 394 [place], [place] 125315 Urology 04/24/20 Carlos Joyner MD [address] [place] [address] 791195 Assigned Surgical Provider 12/24/20 Ang Slade MD [address] [place] [address] 698195 MD Urology 12/18/22 Lakshmi Wilhelm PA-C [address] [place] [address] Physician Cashier Wrapper Urology 02/03/23 [place] [address] [place] [address] Assigned PCP 02/06/23 Alissa Perez PA-C [address] [place] [address] 451785 Physician Cashier Wrapper Surgery 09/04/23 Lakshmi Wilhelm PA-C [address] [place] [address] 546145 Physician Cashier Wrapper Urology 09/16/23 Aidee Valero PA-C [address] [place] [address] 661495 Assigned Musculoskeletal Provider 04/17/24 Tanisha Marlow 4120 [facility] [address] 03/30/24 documented as of this encounter
--- OUTSIDE RECORDS SUMMARY | 2024-09-19 21:09 | XMS_ITS | Encounter Summary ---
Author Organization [place] Address [address] [place] [address] Care Team Providers Care Cage Cashier Name Role Phone Carlos Joyner MD Unavailable [phone] Jadon Murray MD Unavailable [phone] Maru Villagomez RN Unavailable Unavailable Ang Slade MD Unavailable [phone] Carlos Joyner MD Unavailable [phone] Ang Slade MD Unavailable [phone] Lakshmi Wilhelm PA-C Unavailable [phone] Heladio Willoughby MD Primary Care Provider [phone] Heladio Willoughby MD Unavailable Alissa Perez PA-C Unavailable [phone] Lakshmi Wilhelm PA-C Unavailable [phone] Aidee Valero PA-C Unavailable [phone] Encounter Details Date Type Department Care Team (Late st Contact Info) Description 06/25/2023 [facility] [address] [place] [address] Carlos Joyner MD [address] [place] [address] Social History Tobacco Use Types Packs/Day [...] file Travel History Travel Start Travel End [place] 08/13/2024 08/19/2024 documented as of this encounter Plan of Treatment Upcoming Encounters Date Type Department Care Team (Late st Contact Info) Description 09/20/2024 11:00 AM CDT Office Visit [address] [address] Sugey Mccoy, RELIABILITY TECHNICIANS [address] [address] 09/27/2024 1:40 PM CDT Ancillary Procedure [address] [place] [address] [place] [address] [place] [address] 09/28/2024 10:30 AM CDT Therapy Visit [facility] [address] [facility] [address] [place] [address] [place] [address] [place] [address] Daly Edmonds, OT 909 [place], [place] 155475 Scheduled Procedures Name Priority Associated Diagnoses Date/Ti me NEPHROLITHOTOMY, PERCUTANEOU S, USING HOLMIUM LASER Kidney stone documented as of this encounter Visit Diagnoses Not on filedocumented in this encounter Care Teams Cage Cashier Relationship Specialty Start [place] [address] [place] [address] PCP - General 03/05/23 Carlos Joyner MD [address] [place] [address] 073165 Urology 12/09/19 Jadon Murray MD [facility] [address] [facility] 550 [place] [address] Referring Physician Pediatric Surgery 12/09/19 Maru Villagomez, OTILIO Registered Nurse 12/10/19 Ang Slade MD [address] [place] [address] 394 [place], [place] 985515 Urology 04/24/20 Carlos Joyner MD [address] [place] [address] 615505 Assigned Surgical Provider 12/24/20 Ang Slade MD [address] [place] [address] 107275 MD Urology 12/18/22 Lakshmi Wilhelm PA-C [address] [place] [address] Physician Prototype Special Build Urology 02/03/23 [place] [address] [place] [address] Assigned PCP 02/06/23 Alissa Perez PA-C [address] [place] [address] 376285 Physician Prototype Special Build Surgery 09/04/23 Lakshmi Wilhelm PA-C [address] [place] [address] 979835 Physician Prototype Special Build Urology 09/16/23 Aidee Valero PA-C [address] [place] [address] 630125 Assigned Musculoskeletal Provider 04/17/24 Tanisha Marlow 4120 [facility] [address] 03/30/24 documented as of this encounter
--- OUTSIDE RECORDS SUMMARY | 2024-09-19 21:09 | XMS_ITS | Clinical Summary ---
Author Organization [facility] Address [address] [place] [address] Care Team Providers Care Screen Making Supervisor Name Role Phone Carlos Joyner MD Unavailable [phone] Jadon Murray MD Unavailable [phone] Maru Villagomez RN Unavailable Unavailable Ang Slade MD Unavailable Carlos Joyner MD Unavailable [phone] Ang Slade MD Unavailable Lakshmi Wilhelm-C Unavailable [phone] Heladio Willoughby MD Primary Care Provider [phone] Heladio Willoughby MD Unavailable Alissa Perez PA-C Unavailable [phone] Lakshmi Wilhelm-C Unavailable [phone] Aidee Valero PA-C Unavailable Allergies Active Allergy [...] into bladder at bedtime 930 mL 11 08/10/19 Active acetaminophen (TYLENOL) 325 MG tablet Take 325-650 mg by mouth every 6 hours as needed for mild pain Active bisacodyl (DULCOLAX) 5 MG EC tablet 0 Refill(s), Maintenance 03/13/20 Active polyethylene glycol (MIRALAX) 17 GM/Dose powder See Instructions, 1-3 tsp as needed to maintain soft stools, # 527 g, 1 Refill(s), Maintenance, other 03/13/20 Active Wound Dressings ([facility] 2X2) PADSIndications:Pr essure ulcer acquired in formerly [facility] Externally apply 1 each topically daily 10 each 04/16/20 23 Active potassium chloride ER (K-TAB) 20 MEQ [...] DAILY 90 tablet 3 02/20/20 24 Active COMPOUNDED NON-CONTROLLED SUBSTANCE (CMPD RX) - PHARMACY TO MIX COMPOUNDED MEDICATIONIndicati ons:Recurrent UTI Instill 30 mL into the bladder via straight catheter once daily per provider instructions. 900 mL 11 07/22/19 25 Active indapamide (LOZOL) 1.25 MG tabletIndications: Hypercalciuria Take 1 tablet (1.25 mg) by mouth every morning. 90 tablet 3 09/08/19 25 Active indapamide (LOZOL) 1.25 MG tabletIndications: Hypercalciuria TAKE ONE TABLET BY MOUTH EVERY DAY IN THE MORNING. 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 At : [facility], aplasia cutis of scalp (pinpoint), R knee contracture, clubbed feet bilaterally, microcephaly, kyphosis. Specialist involved: Adult [facility]ida [facility] - looking into locations/referrals Adult neurosurgery team - not needed until age 27 (currently following with Dr. Rodgers of [facility]) Adult Urology team - Dr. Joyner of [facility] Adult Sleep Medicine - referral placed Adult Orthopaedics - [facility] Resolved Problems Problem Noted Date Diagnosed Date Resolved Date Acute kidney failure, unspecified 02/10/2020 03/05/2023 Ulcer, surgical 06/07/2011 07/22/2024 Encounters Date Type Department Care Team Description 09/15/2024 Travel 09/14/2024 Telephone [facility] [address] [place] [address] Heladio Willoughby MD Forms (Supplies Order) 09/13/2024 11:00 AM CDT Office Visit [facility] [address] [place] [address] Heladio Willoughby MD Screening for cervical cancer (Primary Dx); Horseshoe kidney with renal calculus; Encounter for IUD insertion; Thoracic spina bifida, unspecified hydrocephalus presence (H); Wheelchair dependence 09/13/2024 Travel 09/08/2024 Travel 09/07/2024 8:30 AM CDT Virtual Visit [facility] [address] [phone] Carlos Jonyer MD Kidney stone (Primary Dx); Hypercalciuria 09/07/2024 PRE VISIT [facility] [address] [phone] Carlos Joyner MD Pre Visit Planning - Done 09/03/2024 9:32 AM CDT - 09/03/2024 11:59 PM CDT Hospital Encounter [facility] [address] [place] [address] Carlos Joyner MD Kidney stone Discharge Disposition: Home or Self Care 09/03/2024 Travel 08/26/2024 Telephone [facility] [address] [phone] Carlos Joyner MD 08/26/2024 MyC Medical Advice [facility] [address] [phone] Sarika Tomlinson 08/20/2024 MyC Medical Advice [facility] [address] [place] [address] Mercy Feliz RN 08/20/2024 Telephone [facility] [address] [place] [address] Heladio Willoughby MD Vaginal Problem 07/27/2024 Telephone [facility] [address] [phone] Carlos Joyner MD Prior Auth - Medication (COMPOUNDED NON-CONTROLLED SUBSTANCE (CMPD RX) - PHARMACY TO MIX COMPOUNDED MEDICATION--DENIED) 07/26/2024 Medical Correspondence [facility] Information Management [address] [facility] [address] [facility] [address] [place] [address] Scan, Non-Provider 07/23/2024 [facility] [address] [place] [phone] Heladio Willoughby MD 07/22/2024 [facility] [address] [place] [address] Heladio Willoughby MD IUD 07/22/2024 [facility] [address] [place] [address] Heladio Willoughby MD 07/22/2024 Telephone [facility] [address] [address] Rosita Velasco RN Clinic Care Coordination - Follow-up (Med request) 07/21/2024 4:00 PM [facility] Office Visit [facility] [address] [place] [address] Heladio Willoughby MD Encounter for Medicare annual wellness exam (Primary Dx); Cervical cancer screening; Thoracic spina bifida, unspecified hydrocephalus presence (H); Chiari malformation type II (H); Paraplegia (H); S/P LOCK MAINTENANCE SUPERVISOR shunt; Wheelchair dependence; Morbid obesity (H); Horseshoe kidney; Bilateral nephrolithiasis; Recurrent cystitis; Neurogenic bladder; Neurogenic bowel; control counseling 07/21/2024 Travel 07/16/2024 Travel 07/09/2024 MyC Medical Advice [facility] [address] [phone] Hattie Wing RN 07/05/2024 Refill [facility] [address] [phone] Carlos Joyner MD Medication Refill 06/24/2024 Orders Only [facility] [address] [place] [address] Carlos Joyner MD Recurrent UTI (Primary Dx) 06/24/2024 Telephone [facility] [address] [place] [address] Carlos Joyner MD Call Back (Previous message from [employer]) 06/23/2024 MyC Medical Advice [facility] [address] [place] [address] Carlos Joyner MD 06/22/2024 Telephone [place] [id number] [place] [address] Heladio Willoughby MD Orders from Last 3 Months Immunizations Name Administration Dates Next Due DTAP (<7y) 01/18/2008,05/06/2005 DTaP, Unspecified 01/16/2015 DTaP/HepB/IPV 05/27/2003,03/21/2003,2002 Flu, Unspecified 02/26/2016,02/21/2009, 4 B4u2-72 Novel Flu 03/18/2009 Q0s5-47 Novel Flu P-free 03/30/2004,05/27/2003 HIB (PRP-T) 05/27/2003,03/21/2003,2002 HIB, Unspecified 05/27/2003,03/21/2003, 3 HPV9 (Gardasil) 04/16/2023,06/17/2019,12/18/2017 Hepatitis A (Vaqta/Havrix)(P eds 12m-18y) 01/18/2008,08/08/2006 Influenza (H1N1) 03/18/2009 Influenza (IIV3) PF 06/09/2013, 2,02/25/2011,02/21,03/23/2007,03/30/2004 Influenza (prior to 2023) 04/23/2012,07/2010,02/21/2009,03/23,03/30/2004,05/27/2003 Influenza Vaccine 18-64 (Flublok) 03/05/2023 Influenza Vaccine >6 months,quad, PF 12/2021,03/27/2021,03/22/2020,06/17,03/06/2018,02/26/2016,04/27/2014 Influenza Vaccine, 6+MO IM (QUADRIVALENT W/PRESERVATIVES) 05/02/2022,03/27/2021 MMR (MMRII) 01/18/2008,09/15/2003 Meningococcal ACWY (Menveo ) 06/17/2019,01/16/2015 Pneumococcal (PCV 7) 05/27/2003,03/21/2003,11/22 Poliovirus, inactivated (IPV) 01/18/2008, 005 TDAP (Adacel,Boostrix) 01/16/2015 Varicella (Varivax) 01/18/2008,09/15/2003 Family History Medical History Relation Comments [...] Answer Date Recorded PHQ-2 Score 0 09/13/2024 [facility] - Occupational Stress [...] building, in an overnight prison, or couch-surfing.) No 07/16/2024 Are you worried [...] file Travel History Travel Start Travel End [place] 08/13/2024 08/19/2024 Last Filed Vital Signs Vital Sign Reading Time Taken Comments Blood Pressure 118/77 09/13/2024 11:15 AM CDT Pulse 75 09/13/2024 11:15 AM CDT Temperature 36.7 C (98.1 F) 09/13/2024 11:15 AM CDT Respiratory Rate 16 09/13/2024 11:15 AM CDT Oxygen Saturation 98% 09/13/2024 11:15 AM CDT Inhaled Oxygen Concentration - - Weight 61.2 kg (135 lb) 03/30/2024 2:01 PM [facility] Height 147.3 cm (4' 10) 03/30/2024 2:01 PM [facility] Body Mass Index 28.22 03/30/2024 2:01 PM [facility] Plan of Treatment Upcoming Encounters Date Type Department Care Team (Late st Contact Info) Description 09/20/2024 11:00 AM CDT Office Visit [facility] [address] [phone] Sugey Mccoy, SPIRAL MACHINE OPERATOR BEHAVIOR INTERVENTIONIST [address] [place] [address] [address] [place], [place] [address] 09/27/2024 1:40 PM CDT Ancillary Procedure [address] [place] [phone] [place] [address] [place], [place] [phone] 09/28/2024 10:30 AM CDT Therapy Visit [facility] [address] [facility] [address] [place] [address] [place] [address] [place], [place] [phone] Daly Edmonds, OT [address] [place], [place] [address] Scheduled Procedures Name Priority Associated Diagnoses Date/Ti me NEPHROLITHOTOMY, PERCUTANEOU S, USING HOLMIUM LASER Kidney stone Health Maintenance Due Date Last Done Comments ANNUAL REVIEW OF HM ORDERS 2002 MENINGITIS B IMMUNIZATION (1 of 2 - Standard) 2018 DTAP/TDAP/TD IMMUNIZATION (8 - Td or Tdap) 01/16/2025 01/16/2015, 01/16/2015, 01/18/2008, Additional history exists MEDICARE ANNUAL WELLNESS VISIT 07/21/2025 07/21/2024, 04/16/2023 PAP 09/14/2027 09/13/2024 CHLAMYDIA SCREENING 07/15/2028 Postpone d from 2002 [...] , 12/18/2017 COVID-19 Vaccine Completed 04/14/2024, , 03/27/2021, Additional history exists INFLUENZA VACCINE Completed 04/14/2024, , 05/02/2022, Additional history exists PHQ-2 (once per calendar year) Completed 09/13/2024, 09/08/2024, 06/24/2023, Additional history exists Medical Devices Implanted Type Area Traverse Rod Assembler Device Identifier Shelf Expiration Date Model / Serial / Lot Stent Ureteral Percuflex Plus [id number] - [id number] Implanted:Qty: 1 on 11/12/2021 by Carlos Joyner MD at [facility] Stent Right: Abdomen [employer] [id number] 12/26/2022 [id number] Ureteral Catheter 5 Mongolian Implanted:Qty: 1 on 03/31/2023 by Elizabeth Jacobsen MD at [facility] Right: Ureter 02/02/2026 [id number] Description:5 kiswahili Uretera l catheter used as a stent in right ureter 5 Mongolian Open Ended Catheter Implanted:Qty: 1 on 03/31/2023 by Elizabeth Jacobsen MD at [facility] Left: Ureter 02/19/2026 [id number] / [id number] Explanted Type Area Traverse Rod Assembler Device Identifier Shelf Expiration Date Model / Serial / Lot Stent Ureteral Percuflex Plus [id number] - [id number] Implanted:Qty: 1 on 05/10/2021 by Carlos Joyner MD at [facility] Explanted:Qty: 1 on 08/09/2021 by Jane Gomez MD at [facility] Stent Right: Urethra [employer] 06/14/2022 [id number] Description:Ureter Stent Ureteral Percuflex Plus [id number] - [id number] Implanted:Qty: 1 on 05/10/2021 by Carlos Joyner MD at [facility] Explanted:Qty: 1 on 08/09/2021 by Jane Gomez MD at [facility] Stent Left: Urethra [employer] 07/25/2022 [id number] Stent Ureteral Percuflex Plus [id number] - [id number] Implanted:Qty: 1 on 08/09/2021 by Jane Gomez MD at [facility] Explanted:Qty: 1 on 11/12/2021 at [facility] Stent Right: Ureter [employer] 02/29/2024 [id number] Stent Ureteral Percuflex Plus [id number] - [id number] Implanted:Qty: 1 on 08/09/2021 by Jane Gomez MD at [facility] Explanted:Qty: 1 on 11/12/2021 at [facility] Stent Right: Ureter [employer] 02/29/2024 [id number] 5 Fr X 22cm Ureteral Stent Explanted:Qty: 1 on 02/07/2020 by Carlos Joyner MD at [facility] APARNA 5 Fr X 22cm Ureteral Stent Explanted:Qty: 1 on 02/07/2020 by Carlos Joyner MD at [facility] APARNA Procedures Procedure Name Priority Date/Time Associated Diagnosis Comments GYNECOLOGIC CYTOLOGY Routine 09/13/2024 12:04 PM CDT Screening for cervical cancer CBC WITH PLATELETS & DIFFERENTIAL Routine 09/13/2024 11:03 AM CDT RBC AND PLATELET MORPHOLOGY Routine 09/13/2024 11:03 AM CDT CBC WITH PLATELETS AND DIFFERENTIAL Routine 09/13/2024 11:03 AM CDT HCG QUALITATIVE Routine 09/13/2024 11:03 AM CDT Encounter for IUD insertion COMPREHENSIVE METABOLIC PANEL Routine 09/13/2024 11:03 AM CDT VITAMIN D DEFICIENCY SCREENING Routine 09/13/2024 11:03 AM CDT LIPID REFLEX TO DIRECT LDL PANEL Routine 09/13/2024 11:03 AM CDT Thoracic spina bifida, unspecified hydrocephalus presence (H) Wheelchair dependence CT ABDOMEN PELVIS W/O CONTRAST Routine 09/03/2024 10:00 AM CDT Kidney stone URINE CULTURE Routine 06/25/2024 9:14 AM [facility] Recurrent UTI URINE MICROSCOPIC EXAM Routine 06/25/2024 9:14 AM [facility] Recurrent UTI ROUTINE UA WITH MICROSCOPIC Routine 06/25/2024 9:14 AM [facility] Recurrent UTI from Last 3 Months Results * Pap Screen Only - Recommended [...] component of this testing was completed at [facility]. Stain controls for all stains resulted within this report have been reviewed and show appropriate reactivity. 2024 1:59 PM CDT [facility] Brushing ENDOCERVICAL STRUCTURE / Unknown Non-blood Collection / Unknown 09/13/2024 12:04 PM CDT 09/13/2024 12:07 PM CDT us Heladio Willoughby MD LAB - JOHN AP Final Result [facility] Specialty Lab [address] [facility], [address] [place] [address] * (ABNORMAL) RBC and Platelet Morphology (09/13/2024 11:03 AM CDT) RBC Morphology Confirmed RBC Indices 09/13/2024 6:11 PM CDT [facility] Platelet Assessment Platelets Clumped(A) Automated Count Confirmed. Platelet morphology is normal. [facility] 09/13/2024 6:11 PM CDT [facility] Blood BLOOD SPECIMEN / Unknown Venipuncture / Unknown 09/13/2024 11:03 AM CDT 09/13/2024 11:03 AM CDT us Heladio Willoughby MD LAB - BLOOD ORDERABLES Final Res ult [facility] Lab [address] Lab (1st floor, no room number) [place] [address], [facility] * CBC with platelets and differential (09/13/2024 11:03 AM CDT) [facility] Signature WBC Count 8.0 4.0 - 11.0 10e3/uL [...] - BLOOD ORDERABLES Final Res ult LABORATORY [facility] [address] Lab (1st floor, no room number) [place] [address], [facility] * Vitamin D Deficiency (09/13/2024 11:03 AM CDT) [facility] Vitamin D, Total (25-Hydroxy) 27 20 - 50 ng/mL 09/14/2024 8:50 AM CDT [facility] Comment:optimum levels Blood BLOOD SPECIMEN / Unknown Venipuncture / Unknown 09/13/2024 11:03 AM CDT 09/13/2024 11:03 AM CDT Narrative [facility] - 09/14/2024 8:50 AM CDT Season, race, dietary intake, and treatment affect the concentration of 97-prakhdv-Csfkxlt D. Values may decrease during winter months and increase during summer months. Vitamin D determination is routinely performed by an immunoassay specific for 25 hydroxyvitamin D3. If an individual is on vitamin D2(ergocalciferol) supplementation, please specify 25 [place] vitamin D2 and D3 level determination by LCMSMS test VITD23. us Heladio Willoughby MD LAB - BLOOD ORDERABLES Final Res ult [facility] Core Lab [address] [facility], [address] [place] [address] * Lipid panel reflex to direct LDL Fasting (09/13/2024 11:03 AM CDT) [facility] Cholesterol 160 <200 mg/dL 09/14/2024 8:50 AM [...] 219 mg/dL Very High: >= 220 mg/dL Heladio Willoughby MD LAB - BLOOD ORDERABLES Final Res ult Performing Organization Address [facility] Co de Phone Number [facility] [place] [facility] Lab [address] [facility], [address] [address] * HCG qualitative (09/13/2024 11:03 AM CDT) hCG Serum Qualitative Negative Negative LINDA 09/13/2024 8:35 PM CDT [facility] Comment:This test is for scr eening purposes. Results should be interpreted along with the clinical picture. Confirmation testing is available if warranted by ordering [id number], HCG Quantitative . Blood BLOOD SPECIMEN / Unknown Venipuncture / Unknown 09/13/2024 11:03 AM CDT 09/13/2024 11:03 AM CDT Heladio Willoughby MD LAB - BLOOD ORDERABLES Final Res ult Performing Organization Address [facility] Co de Phone Number [facility] [place] [facility] Lab [address] [facility], [address] * (ABNORMAL) Comprehensive metabolic panel (09/13/2024 11:03 AM CDT) Pathologist [facility] Sodium 141 135 - 145 mmol/L 09/14/2024 [...] BLOOD ORDERABLES Final Res ult [facility] [place] [facility] [address] [facility], [address] [place] [address], [facility] * CT Abdomen Pelvis w/o Contrast (09/03/2024 [...] EXAM: CT ABDOMEN PELVIS W/O CONTRAST LOCATION: [facility] DATE: 09/03/2024 INDICATION: Low dose [...] in the bladder presumably from prior instrumentation. LOCK MAINTENANCE SUPERVISOR shunt tubing in the pelvis. MUSCULOSKELETAL: Lumbosacral fusion. Muscular atrophy in the pelvis. 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 Procedure Note Vito Jimenez MD - 09/03/2024 EXAM: CT ABDOMEN PELVIS W/O CONTRAST LOCATION: [facility] DATE: 09/03/2024 INDICATION: Low dose [...] Gas in the bladder presumably from prior instrumentation.LOCK MAINTENANCE SUPERVISOR shunt tubing in the pelvis. MUSCULOSKELETAL: Lumbosacral fusion. Muscular atrophy in the pelvis.Chronic ossification lateral to the left hip. IMPRESSION: Multiple nonobstructing bilateral renal calculi in a horseshoekidney. The largest calculus is a staghorn type calculus on the leftmeasuring over 3 cm in greatest diameter. us Carlos Joyner MD IMG CT ORDERABLES Final Re sult * (ABNORMAL) UA with Microscopic (06/25/2024 9:14 AM [facility]) Color Urine Yellow Colorless, Straw, Light Yellow, Yellow 06/25/2024 9:19 AM [facility] Appearance Urine Cloudy(A) Clear 06/25/19 25 9:19 AM [facility] Glucose Urine Negative Negative mg/dL 06/25/2024 9:19 AM [facility] Bilirubin Urine Negative Negative 9:19 AM [facility] Ketones Urine Negative Negative mg/dL 06/25/2024 9:19 AM [facility] Specific Devol Urine 1.020 1.003 - 1.035 06/25/2024 9:19 AM [facility] Blood Urine Small(A) Negative 06/25/2024 9:19 AM [facility] pH Urine 6.0 5.0 - 7.0 06/25/2024 9:19 AM [facility] Protein Albumin Urine Negative Negative mg/dL 06/25/2024 9:19 AM [facility] Urobilinogen Urine 0.2 0.2, 1.0 E.U./dL 06/25/2024 9:19 AM [facility] Nitrite Urine Positive(A) Negative 06/25/2024 9:19 AM [facility] Leukocyte Esterase Urine Small(A) Negative 06/25/2024 9:19 AM [facility] Urine URINE SPECIMEN FROM URINARY CONDUIT / Unknown Non-blood Collection / Unknown 06/25/2024 9:14 AM [facility] 06/25/2024 9:15 AM [facility] Carlos Joyner MD LAB - URINE ORDERABLES Fin al Result LABORATORY [facility] Lab [address] [facility] Lab (no room number, 1st floor of [facility]) [place] [address], [facility] * (ABNORMAL) Urine Microscopic Exam (06/25/2024 9:14 AM [facility]) Bacteria Urine Many(A) None Seen /HPF LINDA 06/25/2024 9:20 AM [facility] LABORATORY RBC Urine 2-5(A) 0-2 /HPF /HPF LINDA 06/25/2024 9:20 AM [facility] RM LABORATORY WBC Urine 10-25(A) 0-5 /HPF /HPF LINDA 06/25/2024 9:20 AM [facility] LABORATORY Amorphous Crystals Urine Few(A) None Seen /HPF LINDA 06/25/2024 9:20 AM [facility]ATORY Urine URINE SPECIMEN FROM URINARY CONDUIT / Unknown Non-blood Collection / Unknown 06/25/2024 9:14 AM [facility] 06/25/2024 9:15 AM [facility] Carlos Joyner MD LAB - URINE ORDERABLES Fin al Result Performing Organization Address City/[facility] de Phone Number LABORATORY [facility] Lab [address] [facility] Lab (no room number, 1st floor of [facility]) [place] [address], [place] * (ABNORMAL) Urine Culture (06/25/2024 9:14 AM [facility]) Culture >100,000 CFU/mL Staphylococcus epidermidis(A) LINDA 06/28/2024 6:49 AM [facility] Culture 50,000-100,000 CFU/mL Staphylococcus epidermidis(A) 06/28/2024 6:49 AM [facility] Urine URINE SPECIMEN OBTAINED VIA INDWELLING URINARY CATHETER / Unknown Non-blood Collection / Unknown 06/25/2024 9:14 AM [facility] 06/25/2024 9:15 AM [facility] Narrative Organism Antibiotic Method Susceptibility Staphylococcus epidermidis [...] ORDERA BLES Final Result [facility] Inf. Diseases Diag. Lab [address] [facility] [place] [address], [facility] from Last 3 Months Insurance [place] Advance Directives For more information, please contact: [phone] Documents on File Type Date Recorded Patient Circuit Rider Expl anation Advance Directives and Living Will [...] continue PREVIOUSLY ORDERED code status Care Teams Screen Making Supervisor Relationship Specialty Start [place] [address] [place] [address] PCP - General 03/05/23 Carlos Joyner MD [address] [place] [address] Urology 12/09/19 Jadon Murray MD [facility] [address] [address] Referring Physician Pediatric Surgery 12/09/19 Maru Villagomez, OTILIO Registered Nurse 12/10/19 Ang Slade MD [address] [place] [address] 834295 Urology 04/24/20 Carlos Joyner MD [address] [place] [address] 896485 Assigned Surgical Provider 12/24/20 Ang Slade MD [address] [place] [address] 76348 Urology 12/18/22 Lakshmi Wilhelm PA-C [address] [place] [address] 82302 Physician Underbaster Urology 02/03/23 [place] [address] [place] [address] Assigned PCP 02/06/23 Alissa Perez PA-C [address] [place] [address] 674135 Physician Underbaster Surgery 09/04/23 Lakshmi Wilhelm PA-C [address] [place] [address] 896815 Physician Underbaster Urology 09/16/23 Aidee Valero PA-C [address] [place] [address] 000125 Assigned Musculoskeletal Provider 04/17/24 Tanisha Marlow 4120 [facility] [address] 03/30/24
--- OUTSIDE RECORDS SUMMARY | 2024-09-19 21:09 | XMS_ITS | Encounter Summary ---
Author Organization [facility] Address [address] [place] [address] 34839 Care Team Providers Care Payable Manager Name Role Phone Carlos Joyner MD Unavailable [phone] Jadon Murray MD Unavailable [phone] Maru Villagomez RN Unavailable Unavailable Ang Slade MD Unavailable +[phone] Carlos Joyner MD Unavailable [phone] Ang Slade MD Unavailable [phone] Lakshmi Wilhelm-C Unavailable +[phone] Heladio Willoughby MD Primary Care Provider [phone] Heladio Willoughby MD Unavailable Alissa Perez PA-C Unavailable [phone] Lakshmi Wilhelm-C Unavailable [phone] Aidee Valero PA-C Unavailable [phone] Encounter Details Date Type Department Care Team (Late st Contact Info) Description 07/01/2023 [facility] Medical Advice [facility] [id number] [place] [address] Joao Arceo MA Social History Tobacco [...] 09/20/2024 11:00 AM CDT Office Visit [address] [address] Sugey Mccoy, MOTOR COACH BUS DRIVER [facility] [place] [address] [address] [place] [address] 09/27/2024 1:40 PM CDT Ancillary Procedure [address] [place] [address] [place] [address] [facility] [address] 09/28/2024 10:30 AM CDT Therapy Visit [facility] 2[address] [facility] [address] [place], [place] [phone] [place] [address] [address] [place], [place] 7266468 Daly [place]s, OT 909 [place] [address] Scheduled Procedures Name Priority Associated Diagnoses Date/Ti me NEPHROLITHOTOMY, PERCUTANEOU S, USING HOLMIUM LASER Kidney stone documented as of this encounter Visit Diagnoses Not on filedocumented in this encounter Care Teams Payable Manager Relationship Specialty Start [place] [address] [place], [place] 7812268 PCP - General 03/05/23 Carlos Joyner MD [address] [place] [address] 265275 Urology 12/09/19 Jadon Murray MD [facility] 2530 [facility] [address] [place] [address] Referring Physician Pediatric Surgery 12/09/19 Maru Villagomez, RN Registered Nurse 12/10/19 Ang Slade MD [address] [place] [address] 394 [place], [place] 903345 Urology 04/24/20 Carlos Joyner MD 9 [place], [place] 503095 Assigned Surgical Provider 12/24/20 Ang Slade MD [address] [place] [address] 007935 Urology 12/18/22 Lakshmi Wilhelm PA-C [address] [place] [address] 805675 Physician Structural Metal Fabricator Apprentice Urology 02/03/23 [place] [address] [place] [address] Assigned PCP 02/06/23 Alissa Perez PA-C [address] [place] [address] 64230 Physician Structural Metal Fabricator Apprentice Surgery 09/04/23 Lakshmi Wilhelm PA-C [address] [place] [address] 94570 Physician Structural Metal Fabricator Apprentice Urology 09/16/23 Aidee Valero PA-C [address] [place] [address] 06743 Assigned Musculoskeletal Provider 04/17/24 Tanisha Marlow 4120 [facility] [address] 03/30/24 documented as of this encounter
--- OUTSIDE RECORDS SUMMARY | 2024-09-19 21:09 | XMS_ITS | Encounter Summary ---
Author Organization [place] Address [address] [place] [address] 7[address]05 Care Team Providers Care Sheet Metal Worker Maintenance Name Role Phone Carlos Joyner MD Unavailable [phone] Jadon Murray MD Unavailable +[phone] Maru Villagomez RN Unavailable Unavailable Ignacia Duran MD Primary Care Provider [phone] Ang Slade MD Unavailable +[phone] Carlos Joyner MD Unavailable +[phone] Annalise Orta PA-C Unavailable +[phone] Ang Slade MD Unavailable +[phone] Lakshmi Wilhelm PA-C Unavailable [phone] Heladio Willoughby MD Primary Care Provider [phone] Heladio Willoughby MD Unavailable Alissa Perez PA-C Unavailable [phone] Lakshmi Wilhelm PA-C Unavailable [phone] Aidee Valero PA-C Unavailable [phone] Encounter Details Date Type Department Care Team (Late st Contact Info) Description 07/31/2021 [facility] Preoperative Assessment Center [address] 5th [place] [address] Makenzie Drummond, RN Social [...] Description 09/20/2024 11:00 AM CDT Office Visit [facility] Sleep Center [address] [phone] Sugey Mccoy, NESTOR [address] [place] [address] 09/27/2024 1:40 PM CDT Ancillary Procedure [address] [place] [phone] [place] [address] [place], [place] 7624068 09/28/2024 10:30 AM CDT Therapy Visit [facility] Rehabilitation Services [facility] 2200 [facility] [address] [place] [address] [place] [address] [place] [address] Daly [place], OT 909 [place] [address] Scheduled Procedures Name Priority Associated Diagnoses Date/Ti [...] documented as of this encounter Care Teams Sheet Metal Worker Maintenance Relationship Specialty Start Date End Date Ignacia Duran MD PCP - General Pediatrics 01/20/20 03/04/23 [place] [address] [place] [address] PCP - General 03/05/23 Carlos Joyner MD [address] [place] [address] 43850 Urology 12/09/19 Jadon Murray MD [facility] [address] [address] Referring Physician Pediatric Surgery 12/09/19 Maru Villagomez, RN Registered Nurse 12/10/19 Ang Slade MD [address] [place] [address] 00428 Urology 04/24/20 Carlos Joyner MD [address] [place] [address] 86243 Assigned Surgical Provider 12/24/20 Annalise Orta PA-C 5200 [place] [address] Assigned Cancer Care Provider 05/13/21 11/01/22 Ang Slade MD [address] [address] Urology 12/18/22 Lakshmi Wilhelm PA-C [address] [place] [address] 286685 Physician Hotel Service Supervisor Urology 02/03/23 [place] [address] [facility] [place] [place] [address] Assigned PCP 02/06/23 Alissa Perez PA-C [address] [place] [address] 722865 Physician Hotel Service Supervisor Surgery 09/04/23 Lakshmi Wilhelm PA-C [address] [place] [address] 597375 Physician Hotel Service Supervisor Urology 09/16/23 Aidee Valero PA-C [address] [place] [address] 566415 Assigned Musculoskeletal Provider 04/17/24 Tanisha Marlow 4120 [facility] [address] 03/30/24 documented as of this encounter
--- OUTSIDE RECORDS SUMMARY | 2024-09-19 21:10 | XMS_ITS | Encounter Summary ---
Author Organization [facility] Address [address] [place] [address] Care Team Providers Care Silk Presser Name Role Phone Carlos Joyner MD Unavailable [phone] Jadon Murray MD Unavailable [phone] Maru Villagomez RN Unavailable Unavailable Ignacia Duran MD Primary Care Provider Ang Slade MD Unavailable +[phone] Carlos Joyner MD Unavailable +[phone] Annalise Orta PA-C Unavailable +[phone] Ang Slade MD Unavailable [phone] Lakshmi Wilhelm-C Unavailable [phone] Heladio Willoughby MD Primary Care Provider [phone] Heladio Willoughby MD Unavailable Alissa Perez PA-C Unavailable [phone] Lakshmi Wilhelm PA-C Unavailable [phone] Aidee Valero PA-C Unavailable [phone] Encounter Details Date Type Department Care Team (Late st Contact Info) Description 12/05/2021 [facility] Urology Clinic [address] [address] [facility] Social History Tobacco Use Types Packs/Day [...] Travel Start Travel End [place] 08/13/2024 08/19/2024 COVID-19 Exposure Response Date Recorded In the last 10 days, have yo u been in contact with someone who was confirmed or suspected to have Coronavirus/COVID-19? No / Unsure 12/04/2021 3:26 PM CDT documented as of this encounter Plan of Treatment Upcoming Encounters Date Type Department Care Team (Late st Contact Info) Description 09/20/2024 11:00 AM CDT Office Visit [facility] [address] [phone] Sugey Mccoy APRN [address] [place], [place] 575[address] 09/27/2024 1:40 PM CDT Ancillary Procedure [address] [place] [phone] [place] [address] [place], [place] 6891168 09/28/2024 10:30 AM CDT Therapy Visit [facility] Rehabilitation Services [facility] 2200 [facility] [address] [place] [address] [place] [address] [facility] [address] Daly [place]s, OT [address] [place] [address] Scheduled Procedures Name Priority Associated Diagnoses Date/Ti [...] documented as of this encounter Care Teams Silk Presser Relationship Specialty Start Date End Date Ignacia Duran MD PCP - General Pediatrics 01/20/20 03/04/23 [place] [address] [place] [address] PCP - General 03/05/23 Carlos Joyner MD [address] [place] [address] 60618 Urology 12/09/19 Jadon Murray MD [facility] 2530 [facility] [address] [place] [address] Referring Physician Pediatric Surgery 12/09/19 Maru Villagomez, RN Registered Nurse 12/10/19 Ang Slade MD [address] [place] [address] 394 [place], [place] 300965 Urology 04/24/20 Carlos Joyner MD [address] [place] [address] 356325 Assigned Surgical Provider 12/24/20 Annalise Orta PA-C 5200 [place] [address] Assigned Cancer Care Provider 05/13/21 11/01/22 Ang Slade MD [address] [place] [address] 153745 Urology 12/18/22 Lakshmi Wilhelm PA-C [address] [place] [address] 868455 Physician Press Operator Heavy Duty Urology 02/03/23 [place] [address] [place] [address] Assigned PCP 02/06/23 Alissa Perez PA-C [address] [place] [address] 44814 Physician Press Operator Heavy Duty Surgery 09/04/23 Lakshmi Wilhelm PA-C [address] [place] [address] 46524 Physician Press Operator Heavy Duty Urology 09/16/23 Aidee Valero PA-C [address] [place] [address] 40158 Assigned Musculoskeletal Provider 04/17/24 Tanisha Marlow 4120 [facility] [address] 03/30/24 documented as of this encounter
--- OUTSIDE RECORDS SUMMARY | 2024-09-19 21:10 | XMS_ITS | Encounter Summary ---
Author Organization [place] Address [address] [place] [address] 83640 Care Team Providers Care Pest Control Service Technician Name Role Phone Carlos Joyner MD Unavailable [phone] Jadon Murray MD Unavailable [phone] Maru Villagomez RN Unavailable Unavailable Ignacia Duran MD Primary Care Provider [phone] Ang Slade MD Unavailable [phone] Carlos Joyner MD Unavailable +[phone] Annalise Orta PA-C Unavailable [phone] Ang Slade MD Unavailable [phone] Lakshmi Wilhelm-C Unavailable [phone] Heladio Willoughby MD Primary Care Provider [phone] Heladio Willoughby MD Unavailable Alissa Perez PA-C Unavailable [phone] Lakshmi Wilhelm PA-C Unavailable [phone] Aidee Valero PA-C Unavailable +[phone] Encounter Details Date Type Department Care Team (Late st Contact Info) Description 11/14/2021 [facility] Urology Clinic [address] [place] [address] Analisa Palacio, RN Social History [...] Travel Start Travel End [place] 08/13/2024 08/19/2024 COVID-19 Exposure Response Date Recorded In the last 10 days, have yo u been in contact with someone who was confirmed or suspected to have Coronavirus/COVID-19? No / Unsure 11/12/2021 12:13 PM CDT documented as of this encounter Plan of Treatment Upcoming Encounters Date Type Department Care Team (Late st Contact Info) Description 09/20/2024 11:00 AM CDT Office Visit [address] [phone] Sugey Mccoy APRN [address] [place], [place] 3[address] 09/27/2024 1:40 PM CDT Ancillary Procedure [address] [place] [phone] [place] [address] [address] [place], [place] 8297968 09/28/2024 10:30 AM CDT Therapy Visit [facility] Rehabilitation Services [facility] 2200 [facility] [address] [place] [address] [place] [address] [facility] [place] [address] Daly [place]s, OT 909 [place] [address] Scheduled Procedures Name Priority Associated Diagnoses Date/Ti [...] of this encounter Care Teams Pest Control Service Technician Relationship Specialty Start Date End Date Ignacia Duran MD PCP - General Pediatrics 01/20/20 03/04/23 [place] [address] [place] [address] PCP - General 03/05/23 Carlos Joyner MD [address] [place] [address] 526605 Urology 12/09/19 Jadon Murray MD [facility] 2530 [facility] 550 [place] [address] Referring Physician Pediatric Surgery 12/09/19 Maru Villagomez, RN Registered Nurse 12/10/19 Ang Slade MD 420 [facility] 394 [place], [place] 662625 Urology 04/24/20 Carlos Joyner MD [address] [place] [address] 782775 Assigned Surgical Provider 12/24/20 Annalise Orta PA-C 5200 [place] [address] Assigned Cancer Care Provider 05/13/21 11/01/22 Ang Slade MD [address] [place] [address] 325495 Urology 12/18/22 Lakshmi Wilhelm PA-C [address] [place] [address] 363965 Physician Electric Vehicle Electrician Urology 02/03/23 [place] [address] [place] [address] Assigned PCP 02/06/23 Alissa Perez PA-C [address] [place] [address] 132635 Physician Electric Vehicle Electrician Surgery 09/04/23 Lakshmi Wilhelm PA-C [address] [place] [address] 83926 Physician Electric Vehicle Electrician Urology 09/16/23 Aidee Valero PA-C [address] [place] [address] Assigned Musculoskeletal Provider 04/17/24 Tanisha Marlow 4120 [facility] [address] 03/30/24 documented as of this encounter
--- OUTSIDE RECORDS SUMMARY | 2024-09-19 21:10 | XMS_ITS | Encounter Summary ---
Author Organization [place] Address [address] [place] [address]30 Care Team Providers Care Mechanic Foreman Name Role Phone Carlos Joyner MD Unavailable [phone] Jadon Murray MD Unavailable [phone] Maru Villagomez RN Unavailable Unavailable Ignacia Duran MD Primary Care Provider [phone] Ang Slade MD Unavailable [phone] Carlos Joyner MD Unavailable +[phone] Annalise Orta PA-C Unavailable [phone] Ang Slade MD Unavailable [phone] Lakshmi Wilhelm-C Unavailable [phone] Heladio Willoughby MD Primary Care Provider [phone] Heladio Willoughby MD Unavailable Alissa Perez PA-C Unavailable [phone] Lakshmi Wilhelm PA-C Unavailable [phone] Aidee Valero PA-C Unavailable [phone] Encounter Details Date Type Department Care Team (Late st Contact Info) Description 11/07/2021 [facility] Urology Clinic [address] [place] [address] Analisa Palacio, RN Social History [...] file Travel History Travel Start Travel End [place] 08/13/2024 08/19/2024 COVID-19 Exposure Response Date Recorded In the last 10 days, have yo u been in contact with someone who was confirmed or suspected to have Coronavirus/COVID-19? No / Unsure 11/08/2021 1:12 PM CDT documented as of this encounter Plan of Treatment Upcoming Encounters Date Type Department Care Team (Late st Contact Info) Description 09/20/2024 11:00 AM CDT Office Visit [address] [phone] Sugey Mccoy APRN [address] [place], [place] 609[address] 09/27/2024 1:40 PM CDT Ancillary Procedure [address] [place] [phone] [place] [address] [place] [place], [place] 7791168 09/28/2024 10:30 AM CDT Therapy Visit [facility] Rehabilitation Services [facility] [address] [facility] [address] [place] [address] [place] [address] [facility] [place] [address] Daly [place]s, OT 909 [place] [address] Scheduled Procedures Name Priority Associated Diagnoses Date/Ti [...] documented as of this encounter Care Teams Mechanic Foreman Relationship Specialty Start Date End Date Ignacia Duran MD PCP - General Pediatrics 01/20/20 03/04/23 [place] [address] [place] [address] PCP - General 03/05/23 Carlos Joyner MD [address] [place] [address] 833915 Urology 12/09/19 Jadon Murray MD [facility] 2530 [facility] 550 [place] [address] Referring Physician Pediatric Surgery 12/09/19 Maru Villagomez, RN Registered Nurse 12/10/19 Ang Slade MD 420 [facility] 394 [place], [place] 170885 Urology 04/24/20 Carlos Joyner MD [address] [place] [address] 139475 Assigned Surgical Provider 12/24/20 Annalise Orta PA-C 5200 [place] [address] Assigned Cancer Care Provider 05/13/21 11/01/22 Ang Slade MD [address] [place] [address] 949925 Urology 12/18/22 Lakshmi Wilhelm PA-C [address] [place] [address] 539215 Physician Process Tech Urology 02/03/23 [place] [address] [place] [address] Assigned PCP 02/06/23 Alissa Perez PA-C [address] [place] [address] 286185 Physician Process Tech Surgery 09/04/23 Lakshmi Wilhelm PA-C [address] [place] [address] Physician Process Tech Urology 09/16/23 Aidee Valero PA-C [address] [place] [address] Assigned Musculoskeletal Provider 04/17/24 Tanisha Marlow 4120 [facility] [place] [address] 03/30/24 documented as of this encounter
--- OUTSIDE RECORDS SUMMARY | 2024-09-19 21:10 | XMS_ITS | Patient Health Record ---
Author Organization [facility] Address [facility] [address] [place] [address] Care Team Providers Care Skylights Assembler Name Role Phone Ignacia Duran MD Primary Care Provider [phone] ADOLFO PAZ MD Reason For Referral No Information Medications Medication SIG (Take, Route, Fr equency, Duration) Notes Start Date End Date Status Gentamicin Sulfate 40 MG/ML 30ML QHS Intravesically BID for 30 days 12/30/2019 Active Problems Problem Type SNOMED Code ICD Code Onset Dates Problem Status W/U Status Risk Notes Problem 927192111 Neurogenic bladd er (N31.9) Active confirmed Problem Hydrocephalus (695974763) Hydrocephalus (G91.9) Active confirmed Problem 75035703 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 Problem 941088595 Acute pyonephros is (N13.6) Active confirmed Problem 621788089 Obesity (BMI 30-39.9) (E66.9) Active confirmed Problem 80376857 Spina bifida of lumbosacral region with 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) Active confirmed Problem 66715508 Acute pyelonephritis (N10) Active confirmed Problem Sepsis (39607386) Sepsis, due to unspecified organism (A41.9) Active confirmed Problem 07976837 Bilateral nephrolithiasis (N20.0) Active confirmed Plan Of Treatment Pending Test Test Name Order Date UDS- Flow, ru, EMG, CMG w/UA/UC and mario tion 12/02/2019 Insurance Providers Payer Name Payer Address Payer Phone Subscriber Number Group Number Insured Name Patient Relationship to Insured Coverage Start Date Coverage End Date [facility] [address] [address] [place] [address] [phone] [id number] Fe Escudero Child - Insured has Financial Responsibility [facility] [address] [address] [place] [address] [id number] Laina Escudero Self - patient is the insured
--- OUTSIDE RECORDS SUMMARY | 2024-09-19 21:10 | XMS_ITS | Encounter Summary ---
Author Organization [place] Address [address] [place] [address] Care Team Providers Care Photolithographic Stripper Name Role Phone Carlos Joyner MD Unavailable [phone] Jadon Murray MD Unavailable [phone] Maru Villagomez RN Unavailable Unavailable Ang Slade MD Unavailable +[phone] Carlos Joyner MD Unavailable [phone] Ang Slade MD Unavailable [phone] Lakshmi Wilhelm PA-C Unavailable [phone] Heladio Willoughby MD Primary Care Provider [phone] Heladio Willoughby MD Unavailable Alissa Perez PA-C Unavailable [phone] aLkshmi Wilhelm PA-C Unavailable +[phone] Aidee Valero PA-C Unavailable +[phone] Encounter Details Date Type Department Care Team (Late st Contact Info) Description 09/18/2023 [facility] Urology Clinic [address] [place] [address] Carlos Joyner MD [address] [place] [address] Social History Tobacco Use Types Packs/Day [...] 09/20/2024 11:00 AM CDT Office Visit [address] [address] Sugey Mccoy, EDUCATOR SENIOR CLINICAL [address] [address] 09/27/2024 1:40 PM CDT Ancillary Procedure [address] [place] [address] [place] [address] [place] [address] 09/28/2024 10:30 AM CDT [facility] Visit [facility] 2200 [facility] [address] [place] [address] [place] [address] [place] [address] Daly [place]s, OT 909 [place], [place] 059305 Scheduled Procedures Name Priority Associated Diagnoses Date/Ti me NEPHROLITHOTOMY, PERCUTANEOU S, USING HOLMIUM LASER Kidney stone documented as of this encounter Visit Diagnoses Not on filedocumented in this encounter Care Teams Photolithographic Stripper Relationship Specialty Start [place] [address] [place] [address] PCP - General 03/05/23 Carlos Joyner MD [address] [place] [address] [phone] Urology 12/09/19 Jadon Murray MD [facility] 2530 [facility] 550 [place] [address] Referring Physician Pediatric Surgery 12/09/19 Maru Villagomez, OTILIO Registered Nurse 12/10/19 Ang Slade MD [address] [place] [address] 394 [place], [place] 260405 Urology 04/24/20 Carlos Joyner MD [address] [place] [address] 590985 Assigned Surgical Provider 12/24/20 Ang Slade MD [address] [place] [address] 614695 MD Urology 12/18/22 Lakshmi Wilhelm PA-C [address] [place] [address] Physician Digital Product Specialist Urology 02/03/23 [place] [address] [place] [address] Assigned PCP 02/06/23 Alissa Perez PA-C [address] [place] [address] 496655 Physician Digital Product Specialist Surgery 09/04/23 Lakshmi Wilhelm PA-C [address] [place] [address] 489095 Physician Digital Product Specialist Urology 09/16/23 Aidee Valero PA-C [address] [place] [address] 642055 Assigned Musculoskeletal Provider 04/17/24 Tanisha Marlow 4120 [facility] [address] 03/30/24 documented as of this encounter
--- OUTSIDE RECORDS SUMMARY | 2024-09-19 21:10 | XMS_ITS | Encounter Summary ---
Author Organization [place] Address [address] [place] [address] Care Team Providers Care Used Building Materials Yard Worker Name Role Phone Carlos Joyner MD Unavailable [phone] Jadon Murray MD Unavailable [phone] Maru Villagomez RN Unavailable Unavailable Ignacia Duran MD Primary Care Provider Ang Slade MD Unavailable [phone] Carlos Joyner MD Unavailable +[phone] Annalise Orta PA-C Unavailable [phone] Ang Slade MD Unavailable [phone] Lakshmi Wilhelm-C Unavailable [phone] Heladio Willoughby MD Primary Care Provider [phone] Heladio Willoughby MD Unavailable Alissa Perez PA-C Unavailable [phone] Lakshmi Wilhelm PA-C Unavailable [phone] Aidee Valero PA-C Unavailable [phone] Encounter Details Date Type Department Care Team (Late st Contact Info) Description 10/02/2021 [facility] [address] [place] [address] Analisa Palacio, RN Social History [...] file Travel History Travel Start Travel End [place] 08/13/2024 08/19/2024 documented as of this encounter Miscellaneous Notes * Telephone Encounter - Sarika Gonsalez - 10/03/2021 1:34 PM CDT documented in this encounter Plan of Treatment Upcoming Encounters Date Type Department Care Team (Late st Contact Info) Description 09/20/2024 11:00 AM CDT Office Visit [address] [phone] Sugey Mccoy, CIRCULATING NURSE [facility] [place] [address] [place] [address] 09/27/2024 1:40 PM CDT Ancillary Procedure [address] [place] [phone] [place] [address] [facility] [place], [place] [address]608[address] 09/28/2024 10:30 AM CDT Therapy Visit [facility] 2[address] [facility] [address] [place] [address] [place] [address] [facility] [place] [address] Daly Edmonds, OT 909 [place] [address] Scheduled Procedures Name Priority Associated Diagnoses Date/Ti [...] documented as of this encounter Care Teams Used Building Materials Yard Worker Relationship Specialty Start Date End Date Ignacia Duran MD PCP - General Pediatrics 01/20/20 03/04/23 [place] [address] [place] [address] PCP - General 03/05/23 Carlos Joyner MD [address] [place] [address] 207385 Urology 12/09/19 Jadon Murray MD [facility] 2530 [facility] 550 [place], [place] [id number] Referring Physician Pediatric Surgery 12/09/19 Maru Villagomez RN Registered Nurse 12/10/19 Ang Slade MD [address] [place] [address] 394 [place], [place] 044625 Urology 04/24/20 Carlos Joyner MD [address] [place] [address] 101715 Assigned Surgical Provider 12/24/20 Annalise Orta PA-C 5200 [place] [address] Assigned Cancer Care Provider 05/13/21 11/01/22 Ang Slade MD [address] [place] [address] [id number] Urology 12/18/22 Lakshmi Wilhelm PA-C [address] [place] [address] 109095 Physician Editing Computer Publisher Urology 02/03/23 [place] [address] [place] [address] Assigned PCP 02/06/23 Alissa Perez PA-C [address] [place] [address] 908975 Physician Editing Computer Publisher Surgery 09/04/23 Lakshmi Wilhelm PA-C [address] [place] [address] 340065 Physician Editing Computer Publisher Urology 09/16/23 Aidee Valero PA-C [address] [place] [address] 800925 Assigned Musculoskeletal Provider 04/17/24 Tanisha Marlow 4120 [facility] [address] 03/30/24 documented as of this encounter
--- OUTSIDE RECORDS SUMMARY | 2024-09-19 21:10 | XMS_ITS | Encounter Summary ---
Author Organization [place] Address [address] [place] [address] Care Team Providers Care Boats Renter Name Role Phone Carlos Joyner MD Unavailable [phone] Jadon Murray MD Unavailable [phone] Maru Villagomez RN Unavailable Unavailable Ignacia Duran MD Primary Care Provider Ang Slade MD Unavailable Carlos Joyner MD Unavailable [phone] Annalise Orta PA-C Unavailable Ang Slade MD Unavailable [phone] Lakshmi Wilhelm-C Unavailable Heladio Willoughby MD Primary Care Provider [phone] Heladio Willoughby MD Unavailable Alissa Perez PA-C Unavailable [phone] Lakshmi Wilhelm PA-C Unavailable Aidee Valero PA-C Unavailable [phone] Encounter Details Date Type Department Care Team (Late st Contact Info) Description 10/01/2021 [facility] [address] [place] [address] Carlos Joyner MD [address] [place] [address] Social History Tobacco Use Types Packs/Day [...] Description 09/20/2024 11:00 AM CDT Office Visit [address] [phone] Sugey Mccoy, [facility] [address] [place] [address] 581514 09/27/2024 1:40 PM CDT Ancillary Procedure [address] [place] [phone] [place] [address] [place], [place] 9444268 09/28/2024 10:30 AM CDT Therapy Visit [facility] 2200 [facility] [address] [place], [place] [phone] [place] [address] [place], [place] [phone] Daly Edmonds, OT 909 [place], [place] 224315 Scheduled Procedures Name Priority Associated Diagnoses Date/Ti [...] documented as of this encounter Care Teams Boats Renter Relationship Specialty Start Date End Date Ignacia Duran MD PCP - General Pediatrics 01/20/20 03/04/23 [place] [address] [place] [address] PCP - General 03/05/23 Carlos Joyner MD [address] [place] [address] Urology 12/09/19 Jadon Murray MD [facility] [address] [address] Referring Physician Pediatric Surgery 12/09/19 Maru Villagomez, OTILIO Registered Nurse 12/10/19 Ang Slade MD 420 [facility] 394 [place] [address] Urology 04/24/20 Carlos Joyner MD [address] [place] [address] Assigned Surgical Provider 12/24/20 Annalise Orta PA-C 5200 [place] [address] Assigned Cancer Care Provider 05/13/21 11/01/22 Ang Slade MD [address] [place] [address] Urology 12/18/22 Lakshmi Wilhelm PA-C [address] [place] [address] Physician Oracle Webcenter Consultant Urology 02/03/23 [place] [address] [place] [address] Assigned PCP 02/06/23 Alissa Perez PA-C [address] [place] [address] Physician Oracle Webcenter Consultant Surgery 09/04/23 Lakshmi Wilhelm PA-C [address] [place] [address] Physician Oracle Webcenter Consultant Urology 09/16/23 Aidee Valero PA-C [address] [place] [address] Assigned Musculoskeletal Provider 04/17/24 Tanisha Marlow 4120 [facility] [address] 03/30/24 documented as of this encounter
--- OUTSIDE RECORDS SUMMARY | 2024-09-19 21:10 | XMS_ITS | Encounter Summary ---
Author Organization [place] Address [address] [place] [address] Care Team Providers Care Molding Machine Setter Name Role Phone Carlos Joyner MD Unavailable [phone] Jadon Murray MD Unavailable [phone] Maru Villagomez RN Unavailable Unavailable Ang Slade MD Unavailable [phone] Carlos Joyner MD Unavailable [phone] Ang Slade MD Unavailable [phone] Lakshmi Wilhelm-C Unavailable [phone] Heladio Willoughby MD Primary Care Provider [phone] Heladio Willoughby MD Unavailable Alissa Perez PA-C Unavailable [phone] Lakshmi Wilhelm-C Unavailable [phone] Aidee Valero PA-C Unavailable [phone] Encounter Details Date Type Department Care Team (Late st Contact Info) Description 09/08/2023 [facility] [address] [address] Bhavna Ferris Social History Tobacco [...] 09/20/2024 11:00 AM CDT Office Visit [address] [address] Sugey Mccoy, PLATFORM BUILDER [facility] [address] [place] [address] [address] [place], [place] 329464 09/27/2024 1:40 PM CDT Ancillary Procedure [address] [place] [address] [place] [address] [place] [address] 09/28/2024 10:30 AM CDT Therapy Visit [facility] 2200 [facility] [address] [place], [place] [phone] [place] [address] [place] [address] Daly Edmonds, OT 909 [place], [place] 819205 Scheduled Procedures Name Priority Associated Diagnoses Date/Ti me NEPHROLITHOTOMY, PERCUTANEOU S, USING HOLMIUM LASER Kidney stone documented as of this encounter Visit Diagnoses Not on filedocumented in this encounter Care Teams Molding Machine Setter Relationship Specialty Start [place] [address] [place] [address] PCP - General 03/05/23 Carlos Joyner MD [address] [place] [address] 031265 Urology 12/09/19 Jadon Murray MD [facility] 2530 [facility] 550 [place] [address] Referring Physician Pediatric Surgery 12/09/19 Maru Villagomez, RN Registered Nurse 12/10/19 Ang Slade MD [address] [place] [address] 394 [place], [place] 796365 Urology 04/24/20 Carlos Joyner MD [address] [place] [address] 573935 Assigned Surgical Provider 12/24/20 Ang Slade MD [address] [place] [address] 040505 Urology 12/18/22 Lakshmi Wilhelm PA-C [address] [place] [address] 274985 Physician Primer Inspector Urology 02/03/23 [place] [address] [place] [address] Assigned PCP 02/06/23 Alissa Perez PA-C [address] [place] [address] Physician Primer Inspector Surgery 09/04/23 Lakshmi Wilhelm PA-C [address] [place] [address] Physician Primer Inspector Urology 09/16/23 Aidee Valero PA-C [address] [place] [address] Assigned Musculoskeletal Provider 04/17/24 Tanisha Marlow 4120 [facility] [address] 03/30/24 documented as of this encounter
--- OUTSIDE RECORDS SUMMARY | 2024-09-19 21:10 | XMS_ITS | Encounter Summary ---
Author Organization [place] Address [address] [place] [address] Care Team Providers Care Science Interpreter Name Role Phone Carlos Joyner MD Unavailable [phone] Jadon Murray MD Unavailable [phone] Maru Villagomez RN Unavailable Unavailable Ignacia Duran MD Primary Care Provider Ang Slade MD Unavailable [phone] Carlos Joyner MD Unavailable [phone] Annalise Orta-C Unavailable Ang Slade MD Unavailable Lakshmi Wilhelm-C Unavailable [phone] Heladio Willoughby MD Primary Care Provider Heladio Willoughby MD Unavailable Alissa Perez PA-C Unavailable [phone] Lakshmi Wilhelm-C Unavailable [phone] Aidee Valero PA-C Unavailable Encounter Details Date Type Department Care Team (Late st Contact Info) Description 10/12/2021 [facility] [address] 5th [place] [address] Tanisha Coe PA-C [address] [place] [address] Social History Tobacco Use Types Packs/Day [...] file Travel History Travel Start Travel End [place] 08/13/2024 08/19/2024 documented as of this encounter Plan of Treatment Upcoming Encounters Date Type Department Care Team (Late st Contact Info) Description 09/20/2024 11:00 AM CDT Office Visit [address] [phone] Sugey Mccoy APRN CRUSHER PLANT OPERATOR [address] [place] [address] 581974 09/27/2024 1:40 PM CDT Ancillary Procedure [address] [place] [phone] [place] [address] [place], [place] 3719268 09/28/2024 10:30 AM CDT Therapy Visit [facility] [address] [facility] [address] [place] [address] [place] [address] [facility] [place] [address] Daly Edmonds, OT [address] [place] [address] Scheduled Procedures Name Priority Associated Diagnoses Date/Ti me NEPHROLITHOTOMY, PERCUTANEOU S, USING HOLMIUM LASER Kidney stone documented as of this encounter Visit Diagnoses Not on filedocumented in this encounter Additional Health Concerns Infection Onset Date Last Indicated Resolved Time MRSA Comment:Added from external infection. Pt has had Staph infections but never MRSA from Care everywhere chart review. Removing MRSA ..06/17/2019 02/06/2023 9:41 AM C DT documented as of this encounter Care Teams Science Interpreter Relationship Specialty Start Date End Date Ignacia Duran MD PCP - General Pediatrics 01/20/20 03/04/23 [place] [address] [place] [address] PCP - General 03/05/23 Carlos Joyner MD 909 [place] [address] Urology 12/09/19 Jadon Murray MD [facility] [address] [facility] 550 [place] [address] Referring Physician Pediatric Surgery 12/09/19 Maru Villagomez, OTILIO Registered Nurse 12/10/19 Ang Slade MD 420 [facility] 394 [place] [address] Urology 04/24/20 Carlos Joyner MD [address] [place] [address] Assigned Surgical Provider 12/24/20 Annalise Orta PA-C 5200 [place] [address] Assigned Cancer Care Provider 05/13/21 11/01/22 Ang Slade MD [address] [place] [address] Urology 12/18/22 Lakshmi Wilhelm PA-C [address] [place] [address] Physician Sourcing Associate Urology 02/03/23 [place] [address] [place] [address] Assigned PCP 02/06/23 Alissa Perez PA-C [address] [place] [address]563 Physician Sourcing Associate Surgery 09/04/23 Lakshmi Wilhelm PA-C [address] [place] [address] Physician Sourcing Associate Urology 09/16/23 Aidee Valero PA-C [address] [place] [address]40 Assigned Musculoskeletal Provider 04/17/24 Tanisha Marlow 4120 [facility] [address] 03/30/24 documented as of this encounter
--- OUTSIDE RECORDS SUMMARY | 2024-09-19 21:10 | XMS_ITS | Encounter Summary ---
Author Organization [place] Address [address] [place] [address] Care Team Providers Care Air Crew Officer Name Role Phone Carlos Joyner MD Unavailable [phone] Jadon Murray MD Unavailable [phone] Maru Villagomez RN Unavailable Unavailable Ignacia Duran MD Primary Care Provider [phone] Ang Slade MD Unavailable Carlos Joyner MD Unavailable [phone] Annalise Orta PA-C Unavailable Ang Slade MD Unavailable Lakshmi Wilhelm-C Unavailable [phone] Heladio Willoughby MD Primary Care Provider Heladio Willoughby MD Unavailable Alissa Perez PA-C Unavailable [phone] Lakshmi Wilhelm PA-C Unavailable Aidee Valero PA-C Unavailable Encounter Details Date Type Department Care Team (Late st Contact Info) Description 12/18/[address] [facility] [address] [place] [address] Carlos Joyner MD [address] [place] [address] Social History Tobacco Use Types Packs/Day [...] Travel History Travel Start Travel End [place] 08/13/2024 08/19/2024 COVID-19 Exposure Response Date Recorded In the last 10 days, have yo u been in contact with someone who was confirmed or suspected to have Coronavirus/COVID-19? No / Unsure 12/04/2021 3:26 PM CDT documented as of this encounter Plan of Treatment Upcoming Encounters Date Type Department Care Team (Late st Contact Info) Description 09/20/2024 11:00 AM CDT Office Visit [address] [phone] Sugey Mccoy, MINING ENGINEERING TECHNOLOGIST [address] [place], [place] 3[address] 09/27/2024 1:40 PM CDT Ancillary Procedure [address] [place] [phone] [place] [address] [address] [place], [place] 417[address]68 09/28/2024 10:30 AM CDT Therapy Visit [facility] 2[address] [facility] [address] [place], [place] [phone] [place] [address] [place] [phone] Daly Edmonds, OT 9 [place] [address] Scheduled Procedures Name Priority Associated Diagnoses Date/Ti [...] as of this encounter Care Teams Air Crew Officer Relationship Specialty Start Date End Date Ignacia Duran MD PCP - General Pediatrics 01/20/20 03/04/23 [place] [address] [place] [address] PCP - General 03/05/23 Carlos Joyner MD [address] [place] [address] Urology 12/09/19 Jadon Murray MD [facility] 2530 [facility] 550 [place] [address] Referring Physician Pediatric Surgery 12/09/19 Maru Villagomez, OTILIO Registered Nurse 12/10/19 Ang Slade MD [address] [place] [address] 394 [place], [place] 586605 Urology 04/24/20 Carlos Joyner MD [address] [place] [address] Assigned Surgical Provider 12/24/20 Annalise Orta PA-C 5200 [place] [address] Assigned Cancer Care Provider 05/13/21 11/01/22 Ang Slade MD [address] [place] [address] Urology 12/18/22 Lakshmi Wilhelm PA-C [address] [place] [address] Physician Cutting And Splicing Supervisor Urology 02/03/23 [place] [address] [place] [address] Assigned PCP 02/06/23 Alissa Perez PA-C [address] [place] [address] Physician Cutting And Splicing Supervisor Surgery 09/04/23 Lakshmi Wilhelm PA-C [address] [place] [address] 9[address] Physician Cutting And Splicing Supervisor Urology 09/16/23 Aidee Valero PA-C [address] [place] [address] 578175 Assigned Musculoskeletal Provider 04/17/24 Tanisha Marlow 4120 [facility] [address] 03/30/24 documented as of this encounter
--- OUTSIDE RECORDS SUMMARY | 2024-09-19 21:10 | XMS_ITS | Encounter Summary ---
Author Organization [facility] Address [address] [place] [address] Care Team Providers Care Clinical Rehabilitation Aide Name Role Phone Carlos Joyner MD Unavailable [phone] Jadon Murray MD Unavailable [phone] Maru Villagomez RN Unavailable Unavailable Ang Slade MD Unavailable [phone] Carlos Joyner MD Unavailable [phone] Ang Slade MD Unavailable [phone] Lakshmi Wilhelm-C Unavailable [phone] Heladio Willoughby MD Primary Care Provider [phone] Heladio Willoughby MD Unavailable Alissa Perez PA-C Unavailable [phone] Lakshmi Wilhelm-C Unavailable [phone] Aidee Valero PA-C Unavailable [phone] Encounter Details Date Type Department Care Team (Late st Contact Info) Description 08/18/2023 [facility] [facility] [address] [place] [address] Analisa Conner Social History Tobacco Use [...] Description 09/20/2024 11:00 AM CDT Office Visit [address] [address] Sugey Mccoy, RETAIL WIRELESS SALES REPRESENTATIVE SUPERVISOR PRE WAVE [address] [place] [address] [address] [place], [place] 88[address]54 09/27/2024 1:40 PM CDT Ancillary Procedure [address] [place] [address] [place] [address] [place] [address] 09/28/2024 10:30 AM CDT Therapy Visit [facility] [address] [place] [address] [place] [address] [facility] [place] [address] Daly Edmonds, OT 909 [place], [place] 213555 Scheduled Procedures Name Priority Associated Diagnoses Date/Ti me NEPHROLITHOTOMY, PERCUTANEOU S, USING HOLMIUM LASER Kidney stone documented as of this encounter Visit Diagnoses Not on filedocumented in this encounter Care Teams Clinical Rehabilitation Aide Relationship Specialty Start [place] [address] [address] [place], [place] 3585968 PCP - General 03/05/23 Carlos Joyner MD [address] [place] [address] Urology 12/09/19 Jadon Murray MD [facility] 2530 [facility] 550 [place] [address] Referring Physician Pediatric Surgery 12/09/19 Maru Villagomez, RN Registered Nurse 12/10/19 Ang Slade MD 420 [facility] 394 [place] [address] Urology 04/24/20 Carlos Joyner MD 9 [place] [address] Assigned Surgical Provider 12/24/20 Ang Slade MD [address] [place] [address] 322205 Urology 12/18/22 Lakshmi Wilhelm PA-C [address] [place] [address] Physician Structural Rigger Urology 02/03/23 [place] [address] [place] [address] Assigned PCP 02/06/23 Alissa Perez PA-C [address] [place] [address] Physician Structural Rigger Surgery 09/04/23 Lakshmi Wilhelm PA-C [address] [place] [address] Physician Structural Rigger Urology 09/16/23 Aidee Valero PA-C [address] [place] [address] Assigned Musculoskeletal Provider 04/17/24 Tanisha Marlow 4120 [facility] [address] 03/30/24 documented as of this encounter
[2024-09-19 21:22] VITALS: BP 160/85; PULSE 80; RESP 20; TEMP 37.1; O2SAT 98
--- NOTE | 2024-09-19 22:22 | ED_ITS ---
HPI - General Adult General Date Seen: 09/19/24 Chief complaint: Shoulder Injury/Pain Stated complaint: Right shoulder pain, no fall Time Seen by Provider: 09/19/24 21:08 History of Present Illness HPI narrative: 24-year-old female with a past medical history of spina bifida, neurogenic bladder, or shoe kidney, presenting to the ER today from her long term for evaluation of atraumatic right shoulder pain. History is obtained mostly from the patient but is supplemented by her long term staff. She is wheelchair- bound because of spina bifida. He recall that she was seen here in the ER recently perhaps a month or 2 ago for atraumatic left shoulder pain. That had healed up. This evening she started having pain in her right shoulder in particular in the right anterior shoulder/proximal humerus. Pain started a couple of hours prior to arrival. She does not have any trauma. No and was lifting her helping her transfer. Pain does not radiate down her arm. No pain in her neck. No chest pain or trouble breathing. No abdominal pain. No fever. No swelling. Related Data Home Medications ?Medication ?Instructions ?Recorded ?Confirmed oxybutynin chloride 5 mg tablet 5 mg PO BID 07/21/22 06/10/24 indapamide 1.25 mg tablet 1.25 mg PO QAM 10/31/23 06/10/24 potassium chloride 10 mEq 10 meq PO BID 10/31/23 06/10/24 tablet,extended release(part/cryst) Previous Rx's ?Medication ?Instructions ?Recorded ciprofloxacin HCl 500 mg tablet 500 mg PO BID 10 days #20 tabs 05/02/24 (Cipro) ciprofloxacin HCl 500 mg tablet 500 mg PO BID #14 tabs 06/07/24 (Cipro) ondansetron 4 mg disintegrating 4 mg PO Q8H PRN nausea and 07/19/24 tablet vomiting #10 tabs Allergies Allergy/AdvReac Type Severity Reaction Status Date / Time ibuprofen Allergy Intermediate 1 Kidney Verified 08/03/24 22:05 vancomycin Allergy Intermediate Swapnil Verified 08/03/24 22:05 Syndrome latex Allergy Mild Rash Verified 08/03/24 22:05 [facility] Medical History Depression ?F32.A - Depression, unspecified (ICD-10) Paraplegia ?G82.20 - Paraplegia, unspecified (ICD-10) Horseshoe kidney ?Q63.1 - Lobulated, fused and horseshoe kidney (ICD-10) Mild intellectual disability ?F70 - Mild intellectual disabilities (ICD-10) Neurogenic bladder ?N31.9 - Neuromuscular dysfunction of bladder, unspecified (ICD-10) COVID-19 ?U07.1 - COVID-19 (ICD-10) Spina bifida ?Q05.9 - Spina bifida, unspecified (ICD-10) Surgical History History of spinal fusion ?Z98.1 - Arthrodesis status (ICD-10) H/O wisdom tooth extraction ?K08.409 - Partial loss of teeth, unspecified cause, unspecified class (ICD- 10) Hx of nephrolithotomy with removal of calculi ?Z98.890 - Other specified postprocedural states (ICD-10) ?Z87.442 - Personal history of urinary calculi (ICD-10) S/P BRAKE SPECIALIST shunt ?Z98.2 - Presence of cerebrospinal fluid drainage device (ICD-10) Family History Father Diabetes Mother Bipolar 1 disorder Social History What is your current living situation?: I presently have a place to live Problems where you live: no known problems Problems where you live details: no known problems In the past 12 months, utilities in danger of being shut off: no In past 12 months, lack of transportation kept you from medical appts, meetings, work, or getting things needed for daily living: no In the past 12 mos, have been you worried that your food would run out before you had money to buy more?: never true In the past 12 mos, the food you bought just didn't last and you didn't have money to buy more?: never true Smoking Status: Never smoker Do you use any of these nicotine containing products: None Second hand tobacco smoke exposure: No How often do you have a drink containing alcohol: never AUDIT-C Alcohol total score: 0 Non-prescribed substance use: denies use Caffeine: Yes (Coffee) How often does anyone, including family, friends and others, physically hurt you : never How often does anyone, including family, friends and others, insult or talk down to you: never How often does anyone, including family, friends and others, threaten you with harm: never How often does anyone, including family, friends and others, scream or curse at you: never service: No Exam Narrative: Exam Narrative: Constitutional: Appears well-developed and well-nourished. Active. Non-toxic appearing. Sitting up in her wheelchair. Plate conversant. HENT: Head: Atraumatic. No signs of injury. Nose: No nasal discharge. Mouth/Throat: Mucous membranes are moist. Pharynx is normal. Tonsils symmetric. Uvula midline. Airway patent. Eyes: Conjunctivae normal and EOM are normal. Pupils are equal, round, and reactive to light. Right eye exhibits no discharge. Left eye exhibits no discharge. No icterus. Neck: Normal range of motion. Neck supple. No adenopathy. No stridor. No tenderness. Normal range of motion. Cardiovascular: Normal rate and regular rhythm. No murmur heard. No murmurs, rub s, or gallops. Brisk capillary refill Pulmonary/Chest: Effort normal. No stridor. No respiratory distress. No wheezes.No rhonchi. No rales. No retractions. No rib tenderness. Abdominal: Soft. Bowel sounds are normal. No distension. No mass. There is no tenderness. No right upper quadrant tenderness. There is no rebound and no guarding. Musculoskeletal: Normal inspection of her right upper extremity. There is no redness or warmth or swelling of the shoulder. She endorses tenderness over the proximal humerus and lateral deltoid. No deformity there. Range of motion is limited to about 30? of flexion and 20? of abduction. Passive range of motion is a bit better at. I can passively flex her to about 90 and abductor to almost 90. There is no clicking. No signs of shoulder dislocation. No bony crepitus. Humeral shaft, biceps, triceps, elbow are nontender. Normal elbow flexion extension. Normal pronation and supination of forearm. Forearm forearm, wrist, hand, fingers are nontender. Intact axillary, radial, median, ulnar nerve sensory function. Neurological: Alert. Normal strength. No cranial nerve deficit or sensory deficit. Coordination normal. GCS eye subscore is 4. GCS verbal subscore is 5. GCS motor subscore is 6. Skin: Skin is warm. No rash noted. Const: Vital Signs, click to edit/add: Vital Signs - 24 hr 09/19/24 21:22 Temperature 98.8 F Pulse Rate [Right Pulse Oximeter] 80 Respiratory Rate 20 Blood Pressure [Ri ght Upper Arm] 160/85 H Pulse Oximetry 98 Oxygen Delivery Me thod Room Air Course Vital Signs Vital signs: Initial Vital Signs Temperature 98.8 F 09/19/24 21:22 Temperature Source Temporal Artery Scan 09/19/24 21:22 Pulse Rate 80 09/19/24 21:22 Respiratory Rate 20 09/19/24 21:22 Blood Pressure 160/85 H 09/19/24 21:22 Blood Pressure Mean 110 H 09/19/24 21:22 Blood Pressure Position Sitting 09/19/24 21:22 Pulse Oximetry 98 09/19/24 21:22 Oxygen Delivery Method Room Air 09/19/24 21:22 Vital Signs Temperature 98.8 F 09/19/24 21:22 Pulse Rate 80 09/19/24 21:22 Respiratory Rate 20 09/19/24 21:22 Blood Pressure 160/85 H 09/19/24 21:22 Pulse Oximetry 98 09/19/24 21:22 Oxygen Delivery Method Room Air 09/19/24 21:22 Temperature 98.8 F 09/19/24 21:22 Pulse Rate 80 09/19/24 21:22 Respiratory Rate 20 09/19/24 21:22 Blood Pressure 160/85 H 09/19/24 21:22 Pulse Oximetry 98 09/19/24 21:22 Oxygen Delivery Method Room Air 09/19/24 21:22 Medications Administered Medications: Discontinued Medications Generic Name Dose Route Start Last Admin Trade Name Freq PRN Reason Stop Dose Admin Acetaminophen 1,000 mg 09/19/24 22:30 09/19/24 22:52 Acetaminophen 500 Mg Tablet PO 09/19/24 22:31 1,000 mg ONCE ONE Administration Cyclobenzaprine HCl 10 mg 09/19/24 22:30 09/19/24 22:53 Cyclobenzaprine Hcl 10 Mg Tablet PO 09/19/24 22:31 10 mg ONCE ONE Administration Medical Decision Making [facility] Narrative Medical decision making narrative: Pleasant 24-year-old female with spina bifida, wheelchair-bound, presenting to the ER today with her long term staff for evaluation of atraumatic right shoulder pain that began about 2 hours prior to arrival. She did have significant pain and limited range of motion on her initial exam. Although there was no trauma we did obtain x-rays to look for possible pathologic fracture or other abnormality. Fortunately x-rays are reassuring. She reports that she had a similar episode of atraumatic left shoulder pain about a month or 2 ago that got better after taking muscle relaxers, but she cannot recall which 1. Records show that she had been given cyclobenzaprine. We administer this cyclobenzaprine and Tylenol here in the ER with good improvement. At this point I think she is safe for discharge back to long term with staff. Would advise close outpatient follow-up with PCP or the [facility] ortho clinic for re-evaluation especially if she has ongoing shoulder pain. Discussed that there are etiologies of shoulder pain that cannot be detected here in the ER or by x-rays. These would include shoulder joint rotator cuff injury or labrum injury. At this point I do not have any suspicion for septic arthritis. At this point nothing pushing us toward hospitalization, arthrocentesis, or immediate surgical intervention. She has an adequate supply of cyclobenzaprine that she can use as needed at her long term. Therefore will hold off on other prescriptions. Questions answered. Imaging Data XR Right soulder: Attestation: I have reviewed the pertinent imaging results. Radiologist's impression: IMPRESSION: No acute osseous abnormality. Discharge Plan Discharge Clinical Impression: Acute pain of right shoulder Patient Disposition: Home, Self-Care Condition: Stable Instructions: Shoulder Pain (ED) Additional Instructions: As we discussed your x-ray looks good. No signs of broken bones, arthritis, or dislocation in your shoulder. At this point we do not know the exact cause of your shoulder pain. It could be a pulled muscle or possibly an injury to your rotator cuff or labrum. If your pain is not better within the next 2-3 days, please follow-up with your doctor or with the [facility]. To make an appointment with the orthopedic clinic you can call [phone]. Use the prescription muscle relaxer cyclobenzaprine that you have at home, as needed for the pain. You can also use meyj-oxe-vrirzwd medications such as acetaminophen (Tylenol). Activity Level: No Restrictions Discharge Diet: Regular Prescriptions: No Action oxybutynin chloride 5 mg tablet 5 mg PO BID indapamide 1.25 mg tablet 1.25 mg PO QAM potassium chloride 10 mEq tablet,ER particles/crystals 10 meq PO BID ciprofloxacin HCl [Cipro] 500 mg tablet 500 mg PO BID Qty: 14 0RF ciprofloxacin HCl [Cipro] 500 mg tablet 500 mg PO BID 10 Days Qty: 20 0RF ondansetron 4 mg tablet,disintegrating 4 mg PO Q8H PRN (Reason: nausea and vomiting) Qty: 10 0RF Follow Up/Referrals: Ignacia Duran MD [Primary Care Provider] - Stand Alone Forms: [employer] Info Instructions
--- NOTE | 2024-09-19 22:31 | CRLHL7_ITS ---
For Patients: As a result of the Century Cures Act, medical imaging exams and procedure reports are released immediately into your electronic medical record. You may view this report before your referring provider. If you have questions, please contact your health care provider. INDICATION: Right shoulder pain. TECHNIQUE: Right shoulder 3 views. COMPARISON: None. FINDINGS: No acute fractures or malalignment. Joint spaces are maintained. Soft tissues are unremarkable. IMPRESSION: No acute osseous abnormality. Dictated by Andrea Lau MD @ 09/19/2024 11:12:00 PM (Electronically Signed)
[2024-09-19] MEDS: ACETAMINOPHEN 500 MG TABLET 1000 MG PO (22:52)
[2024-09-19] MEDS: CYCLOBENZAPRINE HCL 10 MG TABLET PO (22:53)
--- OUTSIDE RECORDS SUMMARY | 2024-09-19 23:03 | XMS_ITS | Encounter Summary ---
Author Organization [facility] Address [address] [place] [address] Care Team Providers Care Business Machine Operator Name Role Phone Carlos Joyner MD Unavailable [phone] Jadon Murray MD Unavailable [phone] Maru Villagomez RN Unavailable Unavailable Ignacia Duran MD Primary Care Provider Ang Slade MD Unavailable [phone] Carlos Joyner MD Unavailable [phone] Annalise Orta PA-C Unavailable [phone] Ang Slade MD Unavailable Lakshmi Wilhelm-C Unavailable [phone] Heladio Willoughby MD Primary Care Provider Heladio Willoughby MD Unavailable Alissa Perez PA-C Unavailable [phone] Lakshmi Wilhelm-C Unavailable [phone] Aidee Valero PA-C Unavailable [phone] Reason for Visit * Reason Onset Date Comments Patient/info Update 02/26/2021 pt currently intubated, will nto be able to have uro surgery Encounter Details Date Type Department Care Team ([facility] Contact Info) Description 02/26/2021 [facility] [address] [place] [address] Carlos Joyner MD [address] [place] [address] Patient/info Update (pt currently intubated, will nto [...] than three times a week 07/16/2024 Attends Jainism Services Not on file 07/16 Active Member of Clubs or Organizations Not on f ile 07/16/2024 Attends Club or Organization Meetings Not on antelmo e 07/16/2024 Marital Status Not on file 07/16/2024 PHQ-2 Answer Date Recorded PHQ-2 Score Incomplete 07/21/2024 [facility] - Occupational [...] Travel Start Travel End [place] 08/13/2024 08/19/2024 COVID-19 Exposure Response Date Recorded [...] Lakshmi Chowdhury - 02/26/2021 2:07 PM CDT [facility] Phone Message May a detailed message be left on voicemail: yes Reason for Call: Other: Edith called in wanting to let Dr. Joyner and his team know that pt [facility] date of 03/09/21. Please call back if thereare any questions at [phone] Action Taken: Message routed to: [facility] uro Travel Screening: Not Applicable documented in this encounter Plan of Treatment Upcoming Encounters Date Type Department Care Team (Late st Contact Info) Description 09/20/2024 11:00 AM CDT Office Visit [address] [address] Sugey Mccoy, PROGRAMMING MANAGER WINERY WORKER [address] [place], [place] [address] 09/27/2024 1:40 PM CDT Ancillary Procedure [facility] [address] [facility] [address] [place] [phone] [place] [address] [address] [place], [place] [id number] 09/28/2024 10:30 AM CDT Therapy Visit [facility] [address] [place] [address] [address] [place], [place] [phone] [place] [address] [address] [place], [place] [id number] Daly Edmonds, OT [address] [place] [address] Scheduled Procedures Name Priority Associated Diagnoses Date/Ti [...] as of this encounter Care Teams Business Machine Operator Relationship Specialty Start Date End Date Ignacia Duran MD PCP - General Pediatrics 01/20/20 03/04/23 [place] [address] [place] [address] PCP - General 03/05/23 Carlos Joyner MD [address] [place] [address] Urology 12/09/19 Jadon Murray MD [facility] [address] [facility] [address] [place] [address] Referring Physician Pediatric Surgery 12/09/19 Maru Villagomez, OTILIO Registered Nurse 12/10/19 Ang Slade MD [address] [place] [address] Urology 04/24/20 Carlos Joyner MD [address] [place] [address] Assigned Surgical Provider 12/24/20 Annalise Orta PA-C [address] [place] [address] Assigned Cancer Care Provider 05/13/21 11/01/22 Ang Slade MD [address] [place] [address] Urology 12/18/22 Lakshmi Wilhelm PA-C [address] [place] [address] Physician Cornetist Urology 02/03/23 [place] [address] [place] [address] Assigned PCP 02/06/23 Alissa Perez PA-C [address] [place] [address] Physician Cornetist Surgery 09/04/23 Lakshmi Wilhelm PA-C [address] [place] [address] Physician Cornetist Urology 09/16/23 Aidee Valero PA-C [address] [place] [address] Assigned Musculoskeletal Provider 04/17/24 Tanisha Marlow 4[address] [facility] [id number] 03/30/24 documented as of this encounter
--- OUTSIDE RECORDS SUMMARY | 2024-09-19 23:03 | XMS_ITS | Encounter Summary ---
Author Organization [facility] Address [address] [place] [address] Care Team Providers Care Natural Gas Engineer Name Role Phone Carlos Joyner MD Unavailable [phone] Jadon Murray MD Unavailable [phone] Maru Villagomez RN Unavailable Unavailable Ignacia Duran MD Primary Care Provider [phone] Ang Slade MD Unavailable [phone] Carlos Joyner MD Unavailable [phone] Ang Slade MD Unavailable [phone] Lakshmi Wilhelm-C Unavailable [phone] Heladio Willoughby MD Primary Care Provider [phone] Heladio Willoughby MD Unavailable Alissa Perez PA-C Unavailable [phone] Lakshmi Wilhelm-C Unavailable [phone] Aidee Valero PA-C Unavailable [phone] Encounter Details Date Type Department Care Team (Late st Contact Info) Description 12/30/2022 [facility] [address] [place] [address] Analisa Palacio, OTILIO Social History [...] Description 09/20/2024 11:00 AM CDT Office Visit [address] [phone] Sugey Mccoy APRN [address] 823754 09/27/2024 1:40 PM CDT Ancillary Procedure [address] [place] [phone] [place] [address] [place] [address] 09/28/2024 10:30 AM CDT Therapy Visit [facility] [address] [facility] [address] [place], [place] [phone] [place] [address] [place], [place] [phone] Daly Edmonds, OT [address] [place] [address] 648805 Scheduled Procedures Name Priority Associated Diagnoses Date/Ti [...] documented as of this encounter Care Teams Natural Gas Engineer Relationship Specialty Start Date End Date Ignacia Duran MD PCP - General Pediatrics 01/20/20 03/04/23 [place] [address] [place] [address] PCP - General 03/05/23 Carlos Joyner MD [address] [place] [address] Urology 12/09/19 Jadon Murray MD [facility] [address] [address] Referring Physician Pediatric Surgery 12/09/19 Maru Villagomez, OTILIO Registered Nurse 12/10/19 Ang Slade MD [address] 103475 Urology 04/24/20 Carlos Joyner MD [address] [place] [address] 234135 Assigned Surgical Provider 12/24/20 Ang Slade MD [address] [address] Urology 12/18/22 Lakshmi Wilhelm PA-C [address] [place] [address] 794595 Physician Special Education Administrator Urology 02/03/23 [place] [address] [place] [address] Assigned PCP 02/06/23 Alissa Perez PA-C [address] [place] [address] 732405 Physician Special Education Administrator Surgery 09/04/23 Lakshmi Wilhelm PA-C [address] [place] [address] 831015 Physician Special Education Administrator Urology 09/16/23 Aidee Valero PA-C [address] [place] [address] [id number] Assigned Musculoskeletal Provider 04/17/24 Tanisha Marlow 4120 [facility] [address] 03/30/24 documented as of this encounter
--- OUTSIDE RECORDS SUMMARY | 2024-09-19 23:03 | XMS_ITS | Encounter Summary ---
Author Organization [facility] Address [address] [place] [address] Care Team Providers Care Rn Peritoneal Dialysis Name Role Phone Carlos Joyner MD Unavailable [phone] Jadon Murray MD Unavailable [phone] Maru Villagomez RN Unavailable Unavailable Ang Slade MD Unavailable [phone] Carlos Joyner MD Unavailable [phone] Ang Slade MD Unavailable [phone] Lakshmi Wilhelm PA-C Unavailable [phone] Heladio Willoughby MD Primary Care Provider [phone] Heladio Willoughby MD Unavailable Alissa Perez PA-C Unavailable [phone] Lakshmi Wilhelm-C Unavailable [phone] Aidee Valero PA-C Unavailable [phone] Encounter Details Date Type Department Care Team (Late st Contact Info) Description 06/15/2024 [facility] [address] [place] [address] Sarika Calhoun MA Social History [...] Travel History Travel Start Travel End [place] 08/13/2024 08/19/2024 documented as of this encounter Plan of Treatment Upcoming Encounters Date Type Department Care Team (Late st Contact Info) Description 09/20/2024 11:00 AM CDT Office Visit [address] [address] Sugey Mccoy, NESTOR [facility] [place] [address] [address] [place] [address] 09/27/2024 1:40 PM CDT Ancillary Procedure [address] [place] [phone] [place] [address] [place] [address] 09/28/2024 10:30 AM CDT Therapy Visit [facility] [address] [facility] [address] [place] [address] [place] [address] [place] [address] Daly Edmonds, OT [address] [place], [place] 5[address] Scheduled Procedures Name Priority Associated Diagnoses Date/Ti me NEPHROLITHOTOMY, PERCUTANEOU S, USING HOLMIUM LASER Kidney stone documented as of this encounter Visit Diagnoses Not on filedocumented in this encounter Care Teams Rn Peritoneal Dialysis Relationship Specialty Start [place] [address] [place] [address] PCP - General 03/05/23 Carlos Joyner MD [address] [place] [address] Urology 12/09/19 Jadon Murray MD [facility] [address] [facility] [address] [place] [address] Referring Physician Pediatric Surgery 12/09/19 Maru Villagomez, RN Registered Nurse 12/10/19 Ang Slaed MD [address] [place] [address] [address] [place], [place] 750415 Urology 04/24/20 Carlos Joyner MD [address] [place] [address] Assigned Surgical Provider 12/24/20 Ang Slade MD [address] [place] [address] [id number] Urology 12/18/22 Lakshmi Wilhelm PA-C [address] [place] [address] Physician Garment Sorter Urology 02/03/23 [place] [address] [place] [address] Assigned PCP 02/06/23 Alissa Perez PA-C [address] [place] [address] Physician Garment Sorter Surgery 09/04/23 Lakshmi Wilhelm PA-C [address] [place] [address] Physician Garment Sorter Urology 09/16/23 Aidee Valero PA-C [address] [place] [address] Assigned Musculoskeletal Provider 04/17/24 Tanisha Marlow 4120 [facility] [address] 03/30/24 documented as of this encounter
--- OUTSIDE RECORDS SUMMARY | 2024-09-19 23:03 | XMS_ITS | Encounter Summary ---
Author Organization [place] Address [address] [place] [address] Care Team Providers Care Executive Officer Name Role Phone Carlos Joyner MD Unavailable [phone] Jadon Murray MD Unavailable [phone] Maru Villagomez RN Unavailable Unavailable Ang Slade MD Unavailable [phone] Carlos Joyner MD Unavailable [phone] Ang Slade MD Unavailable [phone] Lakshmi Wilhelm-C Unavailable Heladio Willoughby MD Primary Care Provider [phone] Heladio Willoughby MD Unavailable Alissa Perez PA-C Unavailable [phone] Lakshmi Wilhelm PA-C Unavailable [phone] Aidee Valero PA-C Unavailable [phone] Encounter Details Date Type Department Care Team (Late st Contact Info) Description 08/26/2024 Telephone [facility] [address] 4th [place] [address] Carlos Joyner MD [address] [place] [address] Social History Tobacco Use Types Packs/Day [...] than three times a week 07/16/2024 Attends Caodaism Services Not on file 07/16 Active Member of Clubs or Organizations Not on f ile 07/16/2024 Attends Club or Organization Meetings Not on antelmo e 07/16/2024 Marital Status Not on file 07/16/2024 PHQ-2 Answer Date Recorded PHQ-2 Score Incomplete 07/21/2024 [facility] - Occupational [...] date: prior to 09/07 Specialty phone number: [phone] (imaging) * Telephone Encounter - Rosita Jhaveri - 08/26/2024 2:18 PM CDT ----- Message from Sarika Jean sent at 08/26/2024 10:03 AM CDT ----- Regarding: Imaging Appointment before 09/07/24 Mary, Please kindly reach out to this patient to help schedule an imaging appointment before the patients09/07/[address] Joyner Order details: CT Abdomen Pelvis w/o Contrast [[id number]] (Order [id number]) Thank you for your help documented in this encounter Plan of Treatment Upcoming Encounters Date Type Department Care Team (Late st Contact Info) Description 09/20/2024 11:00 AM CDT Office Visit [address] [address] Sugey Mccoy, NESTOR [address] [address] 09/27/2024 1:40 PM CDT Ancillary Procedure [address] [place] [phone] [place] [address] [place] [address] 09/28/2024 10:30 AM CDT Therapy Visit [facility] [address] [place] [address] [address] [place], [place] [phone] [place] [address] [place] [address] Daly Edmonds, OT 909 [place], [place] 126155 Scheduled Procedures Name Priority Associated Diagnoses Date/Ti me NEPHROLITHOTOMY, PERCUTANEOU S, USING HOLMIUM LASER Kidney stone documented as of this encounter Visit Diagnoses Not on filedocumented in this encounter Care Teams Executive Officer Relationship Specialty [place] [address] [place] [address] PCP - General 03/05/23 Carlos Joyner MD [address] [place] [address] Urology 12/09/19 Jadon Murray MD [facility] 2530 [facility] 550 [place] [address] Referring Physician Pediatric Surgery 12/09/19 Maru Villagomez, OTILIO Registered Nurse 12/10/19 Ang Slade MD [address] [place] [address] 394 [place], [place] 310415 Urology 04/24/20 Carlos Joyner MD [address] [place] [address] Assigned Surgical Provider 12/24/20 Ang Slade MD [address] [place] [address] Urology 12/18/22 Lakshmi Wilhelm PA-C [address] [place] [address] Physician Recruiting Operations Consultant Urology 02/03/23 [place] [address] [place] [address] Assigned PCP 02/06/23 Alissa Perez PA-C [address] [place] [address] Physician Recruiting Operations Consultant Surgery 09/04/23 Lakshmi Wilhelm PA-C [address] [place] [address] Physician Recruiting Operations Consultant Urology 09/16/23 Aidee Valero PA-C [address] [place] [address] Assigned Musculoskeletal Provider 04/17/24 Tanisha Marlow 4120 [facility] [address] 03/30/24 documented as of this encounter
--- OUTSIDE RECORDS SUMMARY | 2024-09-19 23:03 | XMS_ITS | Encounter Summary ---
Author Organization [place] Address [address] [place] [address] Care Team Providers Care Helicopter Dispatcher Name Role Phone Carlos Joyner MD Unavailable [phone] Jadon Murray MD Unavailable [phone] Maru Villagomez RN Unavailable Unavailable Ang Slade MD Unavailable [phone] Carlos Joyner MD Unavailable [phone] Ang Slade MD Unavailable [phone] Lakshmi Wilhelm PA-C Unavailable Heladio Willoughby MD Primary Care Provider [phone] Heladio Willoughby MD Unavailable Alissa Perez PA-C Unavailable [phone] Lakshmi Wilhelm PA-C Unavailable Aidee Valero PA-C Unavailable Reason for Visit * Reason Comments RECHECK Encounter Details Date Type Department Care Team (Late st Contact Info) Description 09/07/2024 8:30 AM CDT Virtual Visit [facility] [address] [place] [address] Carlos Joyner MD [address] [place] [address] Kidney stone (Primary Dx); Hypercalciuria Social [...] than three times a week 07/16/2024 Attends Zoroastrianism Services Not on file 07/16 Active Member of Clubs or Organizations Not on f ile 07/16/2024 Attends Club or Organization Meetings Not on antelmo e 07/16/2024 Marital Status Not on file 07/16/2024 PHQ-2 Answer Date Recorded PHQ-2 Score Incomplete 07/21/2024 [facility] Occupat [facility] - Occupational Stress [...] location): Off-site Platform used for Video Visit: [facility] UROLOGY OUTPATIENT VISIT ASSESSMENT/PLAN 23 year old [...] EXAM: CT ABDOMEN PELVIS W/O CONTRAST LOCATION: DATE: 09/03/2024 INDICATION: Low dose for kidney [...] in the bladder presumably from prior instrumentation. METER MECHANIC shunt tubing in the pelvis. MUSCULOSKELETAL: Lumbosacral [...] Is the patient currently in the state [facility]? YES Visit mode: VIDEO If the visit is dropped, the patient can be reconnected by:VIDEO VISIT: Text to cell phone: Telephone Information: Mobile Not on file. Will anyone else be joining the visit? NO (If patient encounters technical issues they should call [phone] :[phone]) Are changes needed to the allergy or medication list? No Are refills needed on medications prescribed by this physician? NO Rooming Documentation: Not applicable Reason for visit: RECHECK Sherry Crystal VVF documented in this encounter Plan of Treatment Upcoming Encounters Date Type Department Care Team (Late st Contact Info) Description 09/20/2024 11:00 AM CDT Office Visit [address] [phone] Sugey Mccoy, AUTOMAT CAR ATTENDANT [address] 606924 09/27/2024 1:40 PM CDT Ancillary Procedure [address] [place] [phone] [place] [address] [place] [address] 09/28/2024 10:30 AM CDT Therapy Visit [facility] 2200 [facility] [address] [place] [address] [place] [address] [address] [place], [place] [phone] Daly Edmonds, [address] 7300[address] Scheduled Procedures Name Priority Associated Diagnoses Date/Ti me NEPHROLITHOTOMY, PERCUTANEOU S, USING HOLMIUM LASER Kidney stone documented as of this encounter Visit Diagnoses Diagnosis Kidney stone- Primary Calculus of kidney Hypercalciuria Unspecified disorders of calcium metabolism documented in this encounter Care Teams Helicopter Dispatcher Relationship Specialty Start [place] [address] [place] [address] PCP - General 03/05/23 Carlos Joyner MD [address] [place] [address] 162125 Urology 12/09/19 Jadon Murray MD [facility] [address] [address] Referring Physician Pediatric Surgery 12/09/19 Maru Villagomez, RN Registered Nurse 12/10/19 Ang Slade MD [address] [place] [address] Urology 04/24/20 Carlos Joyner MD [address] [place] [address] 660915 Assigned Surgical Provider 12/24/20 Ang Slade MD [address] [place] [address] Urology 12/18/22 Lakshmi Wilhelm PA-C [address] [place] [address] Physician Cloth Shader Urology 02/03/23 [place] [address] [place] [address] Assigned PCP 02/06/23 Alissa Perez PA-C [address] [place] [address] 260795 Physician Cloth Shader Surgery 09/04/23 Lakshmi Wilhelm PA-C [address] [place] [address] 955105 Physician Cloth Shader Urology 09/16/23 Aidee Valero PA-C [address] [place] [address] 383645 Assigned Musculoskeletal Provider 04/17/24 Tanisha Marlow 4120 [facility] [address] 03/30/24 documented as of this encounter
--- OUTSIDE RECORDS SUMMARY | 2024-09-19 23:03 | XMS_ITS | Encounter Summary ---
Author Organization [place] Address [address] [place] [address] Care Team Providers Care Bean Snapper Name Role Phone Carlos Joyner MD Unavailable [phone] Jadon Murray MD Unavailable [phone] Maru Villagomez RN Unavailable Unavailable Ang Slade MD Unavailable [phone] Carlos Joyner MD Unavailable [phone] Ang Slade MD Unavailable [phone] Lakshmi Wilhelm-C Unavailable [phone] Heladio Willoughby MD Primary Care Provider [phone] Heladio Willoughby MD Unavailable Alissa Perez PA-C Unavailable [phone] Lakshmi Wilhelm-C Unavailable [phone] Aidee Valero PA-C Unavailable [phone] Encounter Details Date Type Department Care Team (Late st Contact Info) Description 08/20/2024 [facility] Medical Advice [facility] [address] [place] [address] Mercy Feliz RN Social History Tobacco [...] than three times a week 07/16/2024 Attends Buddhist Services Not on file 07/16 Active Member of Clubs or Organizations Not on f ile 07/16/2024 Attends Club or Organization Meetings Not on antelmo e 07/16/2024 Marital Status Not on file 07/16/2024 PHQ-2 Answer Date Recorded PHQ-2 Score Incomplete 07/21/2024 [facility] - Occupational Stress Questionnaire Answer Date [...] 09/20/2024 11:00 AM CDT Office Visit [address] [phone] Sugey Mccoy, REGISTERED PRIVATE DUTY NURSE [facility] [address] [place] [address] [address] [place], [place] 802244 09/27/2024 1:40 PM CDT Ancillary Procedure [address] [place] [phone] [place] [address] [place], [place] 4950568 09/28/2024 10:30 AM CDT Therapy Visit [facility] 2200 [facility] [address] [place], [place] [phone] [place] [address] [place], [place] [phone] Daly Edmonds, OT [address] [place], [place] 262675 Scheduled Procedures Name Priority Associated Diagnoses Date/Ti me NEPHROLITHOTOMY, PERCUTANEOU S, USING HOLMIUM LASER Kidney stone documented as of this encounter Visit Diagnoses Not on filedocumented in this encounter Care Teams Bean Snapper Relationship Specialty Start [place] [address] [place] [address] PCP - General 03/05/23 Carlos Joyner MD [address] [place] [address] Urology 12/09/19 Jadon Murray MD [facility] 2530 [facility] 550 [place] [address] Referring Physician Pediatric Surgery 12/09/19 Maru Villagomez, RN Registered Nurse 12/10/19 Ang Slade MD [address] [place] [address] 394 [place], [place] 374555 Urology 04/24/20 Carlos Joyner MD [address] [place] [address] 071695 Assigned Surgical Provider 12/24/20 Ang Slade MD [address] [place] [address] 394 [place], [place] 381905 Urology 12/18/22 Lakshmi Wilhelm PA-C [address] [place] [address] 908035 Physician Receiving Weigher Urology 02/03/23 [place] [address] [place] [address] Assigned PCP 02/06/23 Alissa Perez PA-C [address] [place] [address] 265495 Physician Receiving Weigher Surgery 09/04/23 Lakshmi Wilhelm PA-C [address] [place] [address] 985125 Physician Receiving Weigher Urology 09/16/23 Aidee Valero, [facility] [address] [place] [address] Assigned Musculoskeletal Provider 04/17/24 Tanisha Marlow 4120 [facility] [address] 03/30/24 documented as of this encounter
--- OUTSIDE RECORDS SUMMARY | 2024-09-19 23:03 | XMS_ITS | Encounter Summary ---
Author Organization [place] Address [address] [place] [address] Care Team Providers Care Meter Reader Name Role Phone Carlos Joyner MD Unavailable [phone] Jadon Murray MD Unavailable [phone] Maru Villagomez RN Unavailable Unavailable Ang Slade MD Unavailable [phone] Carlos Joyner MD Unavailable [phone] Ang Slade MD Unavailable [phone] Lakshmi Wilhelm PA-C Unavailable Heladio Willoughby MD Primary Care Provider [phone] Heladio Willoughby MD Unavailable Alissa Perez PA-C Unavailable [phone] Lakshmi Wilhelm PA-C Unavailable [phone] Aidee Valero PA-C Unavailable [phone] Encounter Details Date Type Department Care Team (Late st Contact Info) Description 06/23/2024 [facility] Urology Clinic [address] [place] [address] Carlos Joyner MD [address] [place] [address] Social History Tobacco Use Types Packs/Day [...] file Travel History Travel Start Travel End [place] 08/13/2024 08/19/2024 documented as of this encounter Plan of Treatment Upcoming Encounters Date Type Department Care Team (Late st Contact Info) Description 09/20/2024 11:00 AM CDT Office Visit [address] [address] Sugey Mccoy, LOGISTICS OFFICER [address] [address] 09/27/2024 1:40 PM CDT Ancillary Procedure [address] [place] [address] [place] [address] [place] [address] 09/28/2024 10:30 AM CDT Therapy Visit [facility] 2200 [facility] [address] [place] [address] [place] [address] [place] [address] Daly Edmonds, OT 909 [place], [place] 520625 Scheduled Procedures Name Priority Associated Diagnoses Date/Ti me NEPHROLITHOTOMY, PERCUTANEOU S, USING HOLMIUM LASER Kidney stone documented as of this encounter Visit Diagnoses Not on filedocumented in this encounter Care Teams Meter Reader Relationship Specialty Start [place] [address] [place] [address] PCP - General 03/05/23 Carlos Joyner MD [address] [place] [address] 901665 Urology 12/09/19 Jadon Murray MD [facility] 2530 [facility] 550 [place] [address] Referring Physician Pediatric Surgery 12/09/19 Maru Villagomez, OTILIO Registered Nurse 12/10/19 Ang Slade MD [address] [place] [address] 394 [place], [place] 386975 Urology 04/24/20 Carlos Joyner MD [address] [place] [address] 553855 Assigned Surgical Provider 12/24/20 Ang Slade MD [address] [place] [address] 711255 MD Urology 12/18/22 Lakshmi Wilhelm PA-C [address] [place] [address] Physician Tax Services Specialist Urology 02/03/23 [place] [address] [place] [address] Assigned PCP 02/06/23 Alissa Perez PA-C [address] [place] [address] 218255 Physician Tax Services Specialist Surgery 09/04/23 Lakshmi Wilhelm PA-C [address] [place] [address] 534645 Physician Tax Services Specialist Urology 09/16/23 Aidee Valero PA-C [address] [place] [address] 188755 Assigned Musculoskeletal Provider 04/17/24 Tanisha Marlow 4120 [facility] [address] 03/30/24 documented as of this encounter
--- OUTSIDE RECORDS SUMMARY | 2024-09-19 23:03 | XMS_ITS | Encounter Summary ---
Author Organization [place] Address [address] [place] [address] Care Team Providers Care Tie Cutter Name Role Phone Carlos Joyner MD Unavailable [phone] Jadon Murray MD Unavailable + [phone] Maru Villagomez RN Unavailable Unavailable Ignacia Duran MD Primary Care Provider [phone] Ang Slade MD Unavailable [phone] Carlos Joyner MD Unavailable [phone] Ang Slade MD Unavailable [phone] Lakshmi Wilhelm-C Unavailable [phone] Heladio Willoughby MD Primary Care Provider [phone] Heladio Willoughby MD Unavailable Alissa Perez PA-C Unavailable [phone] Lakshmi Wilhelm-C Unavailable [phone] Aidee Valero PA-C Unavailable [phone] Encounter Details Date Type Department Care Team (Late st Contact Info) Description 01/06/2023 [facility] [address] [address] Lisette Mariee Social History Tobacco [...] Travel Start Travel End [place] 08/13/2024 08/19/2024 COVID-19 Exposure Response Date Recorded In the last 10 days, have yo u been in contact with someone who was confirmed or suspected to have Coronavirus/COVID-19? No / Unsure 12/11/2022 8:56 AM CDT documented as of this encounter Plan of Treatment Upcoming Encounters Date Type Department Care Team (Late st Contact Info) Description 09/20/2024 11:00 AM CDT Office Visit [address] [phone] Sugey Mccoy APRN [address] 29220[address] 09/27/2024 1:40 PM CDT Ancillary Procedure [address] [place] [phone] [place] [address] [place] [address] 09/28/2024 10:30 AM CDT Therapy Visit [facility] Rehabilitation Services [facility] 2200 [facility] [address] [place] [address] [place] [address] [place], [place] [phone] Daly Edmonds, OT [address] [place] [address] 465815 Scheduled Procedures Name Priority Associated Diagnoses Date/Ti [...] documented as of this encounter Care Teams Tie Cutter Relationship Specialty Start Date End Date Ignacia Duran MD PCP - General Pediatrics 01/20/20 03/04/23 [place] [address] [place] [address] PCP - General 03/05/23 Carlos Joyner MD [address] [place] [address] Urology 12/09/19 Jadon Murray MD [facility] 2530 [facility] 550 [place] [address] Referring Physician Pediatric Surgery 12/09/19 Maru Villagomez, OTILIO Registered Nurse 12/10/19 Ang Slade MD [address] 911[address] Urology 04/24/20 Carlos Joyner MD [address] [place] [address] 789265 Assigned Surgical Provider 12/24/20 Ang Slade MD [address] [address] Urology 12/18/22 Lakshmi Wilhelm PA-C [address] [place] [address] 742815 Physician Rural Health Consultant Urology 02/03/23 [place] [address] [place] [address] Assigned PCP 02/06/23 Alissa Perez PA-C [address] [place] [address] 035545 Physician Rural Health Consultant Surgery 09/04/23 Lakshmi Wilhelm PA-C [address] [place] [address] 023265 Physician Rural Health Consultant Urology 09/16/23 Aidee Valero PA-C [address] [place] [address] 820165 Assigned Musculoskeletal Provider 04/17/24 Tanisha Marlow 4120 [facility] [address] 03/30/24 documented as of this encounter
--- OUTSIDE RECORDS SUMMARY | 2024-09-19 23:03 | XMS_ITS | Encounter Summary ---
Author Organization [facility] Address [address] [place] [address] Care Team Providers Care Foam Dispenser Name Role Phone Carlos Joyner MD Unavailable [phone] Jadon Murray MD Unavailable [phone] Maru Villagomez RN Unavailable Unavailable Ang Slade MD Unavailable [phone] Carlos Joyner MD Unavailable [phone] Ang Slade MD Unavailable [phone] Lakshmi Wilhelm-C Unavailable Heladio Willoughby MD Primary Care Provider [phone] Heladio Willoughby MD Unavailable Alissa Perez PA-C Unavailable [phone] Lakshmi Wilhelm-C Unavailable [phone] Aidee Valero PA-C Unavailable [phone] Reason for Referral * Diagnostic Imaging CT Scan (Routine) - Closed Specialty Diagnoses / Procedures Referred By Contabran t Referred To Contact Radiology. Diagnoses Kidney stone Procedures CT Abdomen Pelvis w/o Contrast Carlos Joyner MD [address] [place] [address] Phone: tel: fax: Referral ID Status Reason Start Date Expiration Date Visits Re quested Visits Authorized [id number] Closed 09/23/2023 09/22/2024 1 1 Reason for Visit * Diagnostic Imaging CT Scan (Routine) - Closed Specialty Diagnoses / Procedures Referred By Charli t Referred To Contact Radiology. Diagnoses Kidney stone Procedures CT Abdomen Pelvis w/o Contrast Carlos Joyner MD [address] [place] [address] Phone: tel: fax: Referral ID Status Reason Start Date Expiration Date Visits Re quested Visits Authorized [id number] Closed 09/23/2023 09/22/2024 1 1 Encounter Details Date Type Department Care Team (Latest Contact Info) Description 09/03/2024 9:32 AM CDT - 09/03/2024 11:59 PM CDT Hospital Encounter [facility] [address] [place] [phone] Carlos Joyner MD [address] [place] [address] [phone] Kidney stone Discharge Disposition: Home or Self [...] than three times a week 07/16/2024 Attends Rastafari Services Not on file 07/16 Active Member of Clubs or Organizations Not on f ile 07/16/2024 Attends Club or Organization Meetings Not on antelmo e 07/16/2024 Marital Status Not on file 07/16/2024 PHQ-2 Answer Date Recorded PHQ-2 Score Incomplete 07/21/2024 [facility] [place] of Occupat ional Health - Occupational Stress [...] ALGINATE 2X2) PADSIndications: Pressure ulcer acquired in critical access hospital hospital Externally apply 1 each topically daily 10 each 04/16/2023 indapamide (LOZOL) 1.25 MG tabletIndication s:Hypercalciuria TAKE ONE TABLET BY MOUTH EVERY DAY IN THE MORNING. 90 tablet 07/09/2024 5 documented as of this encounter Plan of Treatment Upcoming Encounters Date Type Department Care Team (Darío villafana Contact Info) Description 09/20/2024 11:00 AM CDT Office Visit [facility] [address] [place] [phone] Sugey Mccoy APRN CNP [address] [place] [address] 09/27/2024 1:40 PM CDT Ancillary Procedure [address] [place] [phone] [place] [address] [place], [place] 7[address] 09/28/2024 10:30 AM CDT Therapy Visit [facility] Rehabilitation Services [facility] [address] [facility] [address] [place] [address] [place] [address] [place], [place] [phone] Daly Edmonds, OT [address] [place] [address] Scheduled Procedures Name Priority Associated Diagnoses Date/Ti [...] EXAM: CT ABDOMEN PELVIS W/O CONTRAST LOCATION: [facility] DATE: 09/03/2024 INDICATION: Low dose for kidney [...] in the bladder presumably from prior instrumentation. FEED MILLER shunt tubing in the pelvis. MUSCULOSKELETAL: Lumbosacral fusion. Muscular atrophy in the pelvis. 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 Procedure Note Vito Jimenez MD - 09/03/2024 EXAM: CT ABDOMEN PELVIS W/O CONTRAST LOCATION: [facility] DATE: 09/03/2024 INDICATION: Low dose for kidney [...] Gas in the bladder presumably from prior instrumentation.FEED MILLER shunt tubing in the pelvis. MUSCULOSKELETAL: Lumbosacral [...] kidney documented in this encounter Care Teams Foam Dispenser Relationship Specialty Start [place] [address] [place] [address] PCP - General 03/05/23 Carlos Joyner MD [address] [place] [address] Urology 12/09/19 Jadon Murray MD [facility] [address] [place] [address] Referring Physician Pediatric Surgery 12/09/19 Maru Villagomez, RN Registered Nurse 12/10/19 Ang Slade MD [address] [place] [address] 093235 Urology 04/24/20 Carlos Joyner MD [address] [place] [address] Assigned Surgical Provider 12/24/20 Ang Slade MD [address] [place] [address] 473385 Urology 12/18/22 Lakshmi Wilhelm PA-C [address] [place] [address]33 Physician Quantitative Strategy Analyst Urology 02/03/23 [place] [address] [place] [address] Assigned PCP 02/06/23 Alissa Perez PA-C [address] [place] [address] 23233 Physician Quantitative Strategy Analyst Surgery 09/04/23 Lakshmi Wilhelm PA-C [address] [place] [address] Physician Quantitative Strategy Analyst Urology 09/16/23 Aidee Valero PA-C [address] [place] [address] 874115 Assigned Musculoskeletal Provider 04/17/24 Tanisha Marlow [address] [facility] [address] 03/30/24 documented as of this encounter
--- OUTSIDE RECORDS SUMMARY | 2024-09-19 23:03 | XMS_ITS | Encounter Summary ---
Author Organization [facility] Address [address] [place] [address] Care Team Providers Care [employer] Court Of Appeals Law Clerk Name Role Phone Carlos Joyner MD Unavailable [phone] Jadon Murray MD Unavailable [phone] Maru Villagomez RN Unavailable Unavailable Ang Slade MD Unavailable [phone] Carlos Joyner MD Unavailable [phone] Ang Slade MD Unavailable [phone] Lakshmi Wilhelm-C Unavailable [phone] Heladio Willoughby MD Primary Care Provider [phone] Heladio Willoughby MD Unavailable Alissa Perez PA-C Unavailable [phone] Lakshmi Wilhelm-C Unavailable [phone] Aidee Valero PA-C Unavailable [phone] Encounter Details Date Type Department Care Team (Late st Contact Info) Description 08/26/2024 [facility] Medical Advice [facility] [address] 4[address] [place] [address] Sarika Tomlinson Social History Tobacco [...] than three times a week 07/16/2024 Attends Yazdanism Services Not on file 07/16 Active Member of Clubs or Organizations Not on f ile 07/16/2024 Attends Club or Organization Meetings Not on antelmo e 07/16/2024 Marital Status Not on file 07/16/2024 PHQ-2 Answer Date Recorded PHQ-2 Score Incomplete 07/21/2024 [facility] - Occupational Stress Questionnaire Answer Date Recorded [...] Description 09/20/2024 11:00 AM CDT Office Visit [address] [phone] Sugey Mccoy, BODY SHOP WORKER [address] [place], [place] 4[address] 09/27/2024 1:40 PM CDT Ancillary Procedure [address] [place] [phone] [place] [address] [place], [place] 9347768 09/28/2024 10:30 AM CDT Therapy Visit [facility] Rehabilitation [facility] [address] [facility] [address] [place], [place] [phone] [place] [address] [place], [place] [phone] Daly Edmonds, OT 9 [place] [address] Scheduled Procedures Name Priority Associated Diagnoses Date/Ti me NEPHROLITHOTOMY, PERCUTANEOU S, USING HOLMIUM LASER Kidney stone documented as of this encounter Visit Diagnoses Not on filedocumented in this encounter Care Teams [employer] Law Clerk Relationship Specialty Start [place] [address] [place] [address] PCP - General 03/05/23 Carlos Joyner MD [address] [place] [address] Urology 12/09/19 Jadon Murray MD [facility] 25[address] [facility] 550 [place] [address] Referring Physician Pediatric Surgery 12/09/19 Maru Villagomez, RN Registered Nurse 12/10/19 Ang Slade MD 420 [facility] 394 [place], [place] 153165 Urology 04/24/20 Carlos Joyner MD [address] [place] [address] 763035 Assigned Surgical Provider 12/24/20 Ang Slade MD [address] [place] [address] 394 [place], [place] 120135 Urology 12/18/22 Lakshmi Wilhelm PA-C [address] [place] [address] 712765 Physician Venetian Blind Installer Urology 02/03/23 [place] [address] [place] [address] Assigned PCP 02/06/23 Alissa Perez PA-C [address] [place] [address] 340465 Physician Venetian Blind Installer Surgery 09/04/23 Lakshmi Wilhelm PA-C [address] [place] [address] Physician Venetian Blind Installer Urology 09/16/23 Aidee Valero, [facility] 9 [place] [address] Assigned Musculoskeletal Provider 04/17/24 Tanisha Marlow 4120 [facility] [address] 03/30/24 documented as of this encounter
--- OUTSIDE RECORDS SUMMARY | 2024-09-19 23:03 | XMS_ITS | Encounter Summary ---
Author Organization [facility] Address [address] [place] [address] Care Team Providers Care Charge Manager Name Role Phone Carlos Joyner MD Unavailable [phone] Jadon Murray MD Unavailable + [phone] Maru Villagomez RN Unavailable Unavailable Ignacia Duran MD Primary Care Provider [phone] Ang Slade MD Unavailable [phone] Carlos Joyner MD Unavailable [phone] Ang Slade MD Unavailable [phone] Lakshmi Wilhelm-C Unavailable [phone] Heladio Willoughby MD Primary Care Provider [phone] Heladio Willoughby MD Unavailable Alissa Perez PA-C Unavailable [phone] Lakshmi Wilhelm-C Unavailable [phone] Aidee Valero PA-C Unavailable [phone] Encounter Details Date Type Department Care Team (Late st Contact Info) Description 01/07/2023 [facility] [address] [place] [address] Analisa Palacio, OTILIO Social History [...] Description 09/20/2024 11:00 AM CDT Office Visit [address] [phone] Sugey Mccoy APRN [address] 906944 09/27/2024 1:40 PM CDT Ancillary Procedure [address] [place] [phone] [place] [address] [place] [address] 09/28/2024 10:30 AM CDT Therapy Visit [facility] Rehabilitation Services [facility] [address] [facility] [address] [place], [place] [phone] [place] [address] [place], [place] 5219568 Daly Edmonds, OT [address] [place] [address] 334655 Scheduled Procedures Name Priority Associated Diagnoses Date/Ti [...] documented as of this encounter Care Teams Charge Manager Relationship Specialty Start Date End Date Ignacia Duran MD PCP - General Pediatrics 01/20/20 03/04/23 [place] [address] [place] [address] PCP - General 03/05/23 Carlos Joyner MD [address] [place] [address] Urology 12/09/19 Jadon Murray MD [facility] [address] [address] Referring Physician Pediatric Surgery 12/09/19 Maru Villagomez, OTILIO Registered Nurse 12/10/19 Ang Slade MD [address] 900215 Urology 04/24/20 Carlos Joyner MD [address] [place] [address] 627995 Assigned Surgical Provider 12/24/20 Ang Slade MD [address] [address] Urology 12/18/22 Lakshmi Wilhelm PA-C [address] [place] [address] 605435 Physician Enterprise Mobility Architect Urology 02/03/23 [place] [address] [place] [address] Assigned PCP 02/06/23 Alissa Perez PA-C [address] [place] [address] 115225 Physician Enterprise Mobility Architect Surgery 09/04/23 Lakshmi Wilhelm PA-C [address] [place] [address] 014285 Physician Enterprise Mobility Architect Urology 09/16/23 Aidee Valero PA-C [address] [place] [address] 476985 Assigned Musculoskeletal Provider 04/17/24 Tanisha Marlow 4120 [facility] [address] 03/30/24 documented as of this encounter
--- OUTSIDE RECORDS SUMMARY | 2024-09-19 23:03 | XMS_ITS | Encounter Summary ---
Author Organization [place] Address [address] [place] [address] Care Team Providers Care Care Professionals Name Role Phone Carlos Joyner MD Unavailable [phone] Jadon Murray MD Unavailable [phone] Maru Villagomez RN Unavailable Unavailable Ignacia Duran MD Primary Care Provider [phone] Carlos Joyner MD Unavailable +[phone] Ang Slade MD Unavailable [phone] Ang Slade MD Unavailable [phone] Carlos Joyner MD Unavailable [phone] Annalise Orta PA-C Unavailable [phone] Ang Slade MD Unavailable [phone] Lakshmi Wilhelm-C Unavailable [phone] Heladio Willoughby MD Primary Care Provider [phone] Heladio Willoughby MD Unavailable Alissa Perez PA-C Unavailable [phone] Lakshmi Wilhelm-C Unavailable [phone] Aidee Valero PA-C Unavailable [phone] Reason for Visit * Reason Onset Date Comments Call Back 08/01/2020 Miscommunication between urinary results Encounter Details Date Type Department Care Team (Late st Contact Info) Description 08/01/2020 Telephone [facility] [address] [place] [phone] Ang Slade MD 420 [facility] 394 [place] [address] Call Back (Miscommunication between urinary results) Social History Tobacco Use Types Packs/Day Years Used Date Smoking Tobacco: Never Smokeless Tobacco: Never Social Connection and Isolat ion Panel [NHANES] Answer Date Recorded Frequency of Communication w ith Friends and Family Not on file 07/16/2024 How often do you get togethe r with friends or relatives? More than three times a week 07/16/2024 Attends Latter Day Services Not on file 07/16 Active Member of Clubs or Organizations Not on f ile 07/16/2024 Attends Club or Organization Meetings Not on antelmo e 07/16/2024 Marital Status Not on file 07/16/2024 PHQ-2 Answer Date Recorded PHQ-2 Score Incomplete 07/21/2024 [facility] of Occupat ional Health - Occupational [...] file Travel History Travel Start Travel End [place] 08/13/2024 08/19/2024 COVID-19 Exposure Response Date Recorded In the last 10 days, have yo u been in contact with someone who was confirmed or suspected to have Coronavirus/COVID-19? No / Unsure 02/26/2023 10:28 AM CDT documented as of this encounter Miscellaneous Notes * Telephone Encounter - Diego Sams - 08/01/2020 11:21 AM CST [facility] Phone Message May a detailed message be left on voicemail: yes Reason for Call: Other: Cristine with [facility] calling because pt's primary, , would like to speak with or a nurse regarding pt's urinary results. Reports that there is some miscommunication that she wants to clarify. Please call back. Action Taken: Message routed to: [facility] uro Travel Screening: Not Applicable ET RENOVATOR documented in this encounter Plan of Treatment Upcoming Encounters Date Type Department Care Team (Late st Contact Info) Description 09/20/2024 11:00 AM CDT Office Visit [address] [address] Sugey Mccoy, SERVICE OPERATIONS MANAGER [address] 333804 09/27/2024 1:40 PM CDT Ancillary Procedure [address] [place] [phone] [place] [address] [place] [address] 09/28/2024 10:30 AM CDT Therapy Visit [facility] [address] [place] [address] [address] [place], [place] [phone] [place] [address] [place] [phone] Daly Edmonds, OT [address]09 [place], [place] 032455 Scheduled Procedures Name Priority Associated Diagnoses Date/Ti [...] as of this encounter Care Teams Care Professionals Relationship Specialty Start Date End Date Ignacia Duran MD PCP - General Pediatrics 01/20/20 03/04/23 [place] [address] [place] [address] PCP - General 03/05/23 Carlos Joyner MD 909 [place], [place] 065055 Urology 12/09/19 Jadon Murray MD [facility]30 [facility] 550 [place] [address] Referring Physician Pediatric Surgery 12/09/19 Maru Villagomez, RN Registered Nurse 12/10/19 Carlos Joyner MD [address] [place] [address] 611675 Assigned Surgical Provider 03/17/20 Ang Slade MD [address] [place] [address] 092435 Urology 04/24/20 Ang Slade MD [address] [place] [address] 079635 Assigned Surgical Provider 08/13/20 Carlos Joyner MD [address] [place] [address] 039355 Assigned Surgical Provider 12/24/20 Annalise Orta PA-C 5200 [place] [address] Assigned Cancer Care Provider 05/13/21 11/01/22 Ang Slade MD [address] [place] [address] 914725 Urology 12/18/22 Lakshmi Wilhelm PA-C [address] [place] [address] 127195 Physician Engineer Geophysical Laboratory Urology 02/03/23 [place] [address] [place] [address] Assigned PCP 02/06/23 Alissa Perez PA-C [address] [place] [address] 391225 Physician Engineer Geophysical Laboratory Surgery 09/04/23 Lakshmi Wilhelm PA-C [address] [place] [address] 294255 Physician Engineer Geophysical Laboratory Urology 09/16/23 Aidee Valero PA-C [address] [place] [address] 226875 Assigned Musculoskeletal Provider 04/17/24 Tanisha Marlow 4120 [facility] [address] 03/30/24 documented as of this encounter
--- OUTSIDE RECORDS SUMMARY | 2024-09-19 23:03 | XMS_ITS | Encounter Summary ---
Author Organization [facility] Address [address] [place] [address] Care Team Providers Care Investigator Fraud Name Role Phone Carlos Joyner MD Unavailable [phone] Jadon Murray MD Unavailable [phone] Maru Villagomez RN Unavailable Unavailable Ang Slade MD Unavailable [phone] Carlos Joyner MD Unavailable [phone] Ang Slade MD Unavailable [phone] Lakshmi Wilhelm-C Unavailable Heladio Willoughby MD Primary Care Provider Heladio Willoughby MD Unavailable Alissa Perez PA-C Unavailable [phone] Lakshmi Wilhelm-C Unavailable Aidee Valero PA-C Unavailable [phone] Reason for Visit * Reason Onset Date Comments Pre Visit Planning - Done 09/07/2024 Encounter Details Date Type Department Care Team (Late st Contact Info) Description 09/07/2024 PRE VISIT [facility] U[facility] Clinic [address] [place] [address] Carlos Joyner MD [address] [place] [address] Pre Visit Planning - Done Social [...] Answer Date Recorded PHQ-2 Score Incomplete 07/21/2024 [facility] of Occupat ional Health - Occupational Stress [...] see outgoing communications for updates. Records/imaging/labs/orders: IN [facility], CARE EVERYWHERE, AND PACS At Rooming: Standard rooming Sarika Tomlinson 08/26/2024 10:02 AM documented in this encounter Plan of Treatment Upcoming Encounters Date Type Department Care Team (Late st Contact Info) Description 09/20/2024 11:00 AM CDT Office Visit [address] [address] Sugey Mccoy, CLIENT SERVICE SUPERVISOR RETAIL SUPPORT ASSOCIATE [address] [place] [address] [address] [place], [place] 8[address] 09/27/2024 1:40 PM CDT Ancillary Procedure [address] [place] [address] [place] [address] [place] [address] 09/28/2024 10:30 AM CDT Therapy Visit [facility] [address] [place] [address] [place] [address] [facility] [place] [address] Daly Edmonds, OT [address]09 [place], [place] 762955 Scheduled Procedures Name Priority Associated Diagnoses Date/Ti me NEPHROLITHOTOMY, PERCUTANEOU S, USING HOLMIUM LASER Kidney stone documented as of this encounter Visit Diagnoses Not on filedocumented in this encounter Care Teams Investigator Fraud Relationship Specialty Start [place] [address] [address] [place], [place] [phone] PCP - General 03/05/23 Carlos Joyner MD [address] [place] [address] Urology 12/09/19 Jadon Murray MD [facility] 2530 [facility] 550 [place] [address] Referring Physician Pediatric Surgery 12/09/19 Maru Villagomez, RN Registered Nurse 12/10/19 Ang Slade MD 420 [facility] 394 [place] [address] Urology 04/24/20 Carlos Joyner MD 9 [place] [address] Assigned Surgical Provider 12/24/20 Ang Slade MD [address] [place] [address] 331595 Urology 12/18/22 Lakshmi Wilhelm PA-C [address] [place] [address] Physician General Farm Manager Urology 02/03/23 [place] [address] [place] [address] Assigned PCP 02/06/23 Alissa Perez PA-C [address] [place] [address] Physician General Farm Manager Surgery 09/04/23 Lakshmi Wilhelm PA-C [address] [place] [address] Physician General Farm Manager Urology 09/16/23 Aidee Valero PA-C [address] [place] [address] Assigned Musculoskeletal Provider 04/17/24 Tanisha Marlow 4[address] [facility] [address] 03/30/24 documented as of this encounter
--- OUTSIDE RECORDS SUMMARY | 2024-09-19 23:03 | XMS_ITS | Encounter Summary ---
Author Organization [place] Address [address] [place] [address] Care Team Providers Care Veneer Trimmer Name Role Phone Carlos Joyner MD Unavailable [phone] Jadon Murray MD Unavailable [phone] Maru Villagomez RN Unavailable Unavailable Ignacia Duran MD Primary Care Provider [phone] Carlos Joyner MD Unavailable [phone] Ang Slade MD Unavailable [phone] Ang Slade MD Unavailable [phone] Carlos Joyner MD Unavailable +[phone] Annalise Orta PA-C Unavailable +[phone] Ang Slade MD Unavailable +[phone] Lakshmi Wilhelm-C Unavailable [phone] Heladio Willoughby MD Primary Care Provider [phone] Heladio Willoughby MD Unavailable Alissa Perez PA-C Unavailable [phone] Lakshmi Wilhelm-C Unavailable [phone] Aidee Valero PA-C Unavailable [phone] Reason for Visit * Reason Onset Date Comments Call Back 06/07/2020 Stent FYI Encounter Details Date Type Department Care Team (Late st Contact Info) Description 06/07/2020 [facility] [place] 8[address] [facility] [address]th [place] [phone] Ang Slade MD 420 [facility] 394 [place], [place] [address] Call Back (Stent ) Social History Tobacco Use Types Packs/Day Years Used Date Smoking Tobacco: Never Smokeless Tobacco: Never Social Connection and Isolat ion Panel [NHANES] Answer Date Recorded Frequency of Communication w ith Friends and Family Not on file 07/16/2024 How often do you get togethe r with friends or relatives? More than three times a week 07/16/2024 Attends Zoroastrian Services Not on file 07/16 Active Member of Clubs or Organizations Not on f ile 07/16/2024 Attends Club or Organization Meetings Not on antelmo e 07/16/2024 Marital Status Not on file 07/16/2024 PHQ-2 Answer Date Recorded PHQ-2 Score Incomplete 07/21/2024 [facility] - Occupational [...] them back message sent to lamar reyna KEN CUTTER * Telephone Encounter - Zo Geiger - 06/07/2020 3:16 PM CST [facility] Phone Message May a detailed [...] Center ([facility]): Urology Travel Screening: Not Applicable KEN CUTTER documented in this encounter Plan of Treatment Upcoming Encounters Date Type Department Care Team (Late st Contact Info) Description 09/20/2024 11:00 AM CDT Office Visit [address] [phone] Sugey Mccoy Jael, CARGO CHECKER HIM DIRECTOR [address] [place], [place] [address] 09/27/2024 1:40 PM CDT Ancillary Procedure [address] [place] [phone] [place] [address] [facility] [place] [place] [address] 09/28/2024 10:30 AM CDT Therapy Visit [facility] 2[address] [facility] [address] [place] [address] [place] [address] [place] [address] Daly Edmonds, OT 909 [place] [address] Scheduled Procedures Name Priority Associated Diagnoses Date/Ti [...] documented as of this encounter Care Teams Veneer Trimmer Relationship Specialty Start Date End Date Ignacia Duran MD PCP - General Pediatrics 01/20/20 03/04/23 [place] [address] [address] [place] [id number] PCP - General 03/05/23 Carlos Jonyer MD 909 [place] [address] Urology 12/09/19 Jadon Murray MD [facility] 2530 [facility] [address] [place] [address] Referring Physician Pediatric Surgery 12/09/19 Maru Villagomez, RN Registered Nurse 12/10/19 Carlos Joyner MD [address] [place] [address] Assigned Surgical Provider 03/17/20 Ang Slade MD [address] [address] Urology 04/24/20 Ang Slade MD [address] [address] Assigned Surgical Provider 08/13/20 Carlos Joyner MD 9 [place] [address] Assigned Surgical Provider 12/24/20 Annalise Orta PA-C 5200 [place] [address] Assigned Cancer Care Provider 05/13/21 11/01/22 Ang Slade MD 420 [facility] 394 [place] [address] Urology 12/18/22 Lakshmi Wilhelm PA-C 9 [place] [address] Physician Finisher Brush Urology 02/03/23 [place] [address] [facility] [place] [address] Assigned PCP 02/06/23 Alissa Perez PA-C [address] [place] [address] Physician Finisher Brush Surgery 09/04/23 Lakshmi Wilhelm PA-C [address] [place] [address] Physician Finisher Brush Urology 09/16/23 Aidee Valero PA-C [address] [place] [address] Assigned Musculoskeletal Provider 04/17/24 Tanisha Marlow 4120 [facility] [address] 03/30/24 documented as of this encounter
--- OUTSIDE RECORDS SUMMARY | 2024-09-19 23:03 | XMS_ITS | Encounter Summary ---
Author Organization [place] Address [address] [place] [address] Care Team Providers Care Diesel Locomotive Firer Name Role Phone Carlos Joyner MD Unavailable [phone] Jadon Murray MD Unavailable [phone] Maru Villagomez RN Unavailable Unavailable Ang Slade MD Unavailable [phone] Carlos Joyner MD Unavailable [phone] Ang Slade MD Unavailable [phone] Lakshmi Wilhelm-C Unavailable [phone] Heladio Willoughby MD Primary Care Provider [phone] Heladio Willoughby MD Unavailable Alissa Perez PA-C Unavailable [phone] Lakshmi Wilhelm-C Unavailable [phone] Aidee Valero PA-C Unavailable [phone] Encounter Details Date Type Department Care Team [...] 07/16/2024 Attends [employer] Services Not on file 02/21 /2025 Active Member of Clubs or Organizations Not on f ile 07/16/2024 Attends Club or Organization Meetings Not on antelmo e 07/16/2024 Marital Status Not on file 07/16/2024 PHQ-2 Answer Date Recorded PHQ-2 Score Incomplete 07/21/2024 [facility] [place] - Occupational Stress [...] Description 09/20/2024 11:00 AM CDT Office Visit [facility] [address] [place] [phone] Darius Elvirginia Elder, NESTOR MOSQUERA [address] [place], [place] [address] 09/27/2024 1:40 PM CDT Ancillary Procedure [address] [place] [address] [place] [address] [address] [place], [place] [address] 09/28/2024 10:30 AM CDT Therapy Visit [facility] [address] [facility] [address] [place] [address] [place] [address] [address] [place], [place] 2527068 Daly Edmonds, OT 909 [place] [address] Scheduled Procedures Name Priority Associated Diagnoses Date/Ti me NEPHROLITHOTOMY, PERCUTANEOU S, USING HOLMIUM LASER Kidney stone documented as of this encounter Visit Diagnoses Not on filedocumented in this encounter Care Teams Diesel Locomotive Firer Relationship Specialty Start [place] [address] [place] [address] PCP - General 03/05/23 Carlos Joyner MD 9 [place] [address] Urology 12/09/19 Jadon Murray MD [facility] 2530 [facility] 550 [place] [address] Referring Physician Pediatric Surgery 12/09/19 Maru Villagomez, RN Registered Nurse 12/10/19 Ang Slade MD 420 [facility] 394 [place], [place] 9[address] MD Urology 04/24/20 Carlos Joyner MD [address] [place] [address] 340785 Assigned Surgical Provider 12/24/20 Ang Slade MD 420 [facility] 394 [place], [place] 830155 MD Urology 12/18/22 Lakshmi Wilhelm PA-C [address] [place] [address] 079775 Physician Chief Medical Technologist Urology 02/03/23 [place] [address] [place] [address] Assigned PCP 02/06/23 Alissa Perez PA-C [address] [place] [address] 580795 Physician Chief Medical Technologist Surgery 09/04/23 Lakshmi Wilhelm PA-C [address] [place] [address] 854415 Physician Chief Medical Technologist Urology 09/16/23 Aidee Valero PA-C 909 [place] [address] Assigned Musculoskeletal Provider 04/17/24 Tanisha Marlow 4120 [facility] [address] 03/30/24 documented as of this encounter
--- OUTSIDE RECORDS SUMMARY | 2024-09-19 23:04 | XMS_ITS | Encounter Summary ---
Author Organization [place] Address [address] [place] [address] Care Team Providers Care Tax Audit Manager Name Role Phone Carlos Joyner MD Unavailable [phone] Jadon Murray MD Unavailable [phone] Maru Villagomez RN Unavailable Unavailable Ignacia Duran MD Primary Care Provider [phone] Ang Slade MD Unavailable Carlos Joyner MD Unavailable [phone] Annalise Orta PA-C Unavailable Ang Slade MD Unavailable Lakshmi Wilhelm-C Unavailable Heladio Willoughby MD Primary Care Provider [phone] Heladio Willoughby MD Unavailable Alissa Perez PA-C Unavailable [phone] Lakshmi Wilhelm PA-C Unavailable Aidee Valero PA-C Unavailable Encounter Details Date Type Department Care Team (Late st Contact Info) Description 09/17/2021 [facility] [address]th [place] [address] Carlos Joyner MD [address] [place] [address] Social History Tobacco Use Types Packs/Day [...] Description 09/20/2024 11:00 AM CDT Office Visit [address] [phone] Sugey Mccoy, DATA INTEGRITY CONSULTANT [facility] [address] [place] [address] [address] [place], [place] [address] 09/27/2024 1:40 PM CDT Ancillary Procedure [address] [place] [phone] [place] [address] [place] [address] 09/28/2024 10:30 AM CDT Therapy Visit [facility] 2200 [facility] [address] [place], [place] [phone] [place] [address] [address] [place], [place] 376[address]68 Daly Edmonds, OT [address] [place] [address] Scheduled Procedures Name Priority Associated Diagnoses Date/Ti [...] documented as of this encounter Care Teams Tax Audit Manager Relationship Specialty Start Date End Date Ignacia Duran MD PCP - General Pediatrics 01/20/20 03/04/23 [place] [address] [place] [address] PCP - General 03/05/23 Carlos Joyner MD 9 [place] [address] Urology 12/09/19 Jadon Murray MD [facility] 2530 [facility] [address] 550 [place] [address] Referring Physician Pediatric Surgery 12/09/19 Maru Villagomez, OTILIO Registered Nurse 12/10/19 Ang Slade MD [address] [place] [address] 394 [place], [place] 9[address] Urology 04/24/20 Carlos Joyner MD 9 [place] [address] Assigned Surgical Provider 12/24/20 Annalise Orta PA-C [address] [place] [address] Assigned Cancer Care Provider 05/13/21 11/01/22 Ang Slade MD [address] [place] [address] 643605 Urology 12/18/22 Lakshmi Wilhelm PA-C [address] [place] [address] 915335 Physician Olericulture Teacher Urology 02/03/23 [place] [address] [place] [address] Assigned PCP 02/06/23 Alissa Perez PA-C [address] [place] [address] Physician Olericulture Teacher Surgery 09/04/23 Lakshmi Wilhelm PA-C [address] [place] [address] Physician Olericulture Teacher Urology 09/16/23 Aidee Valero PA-C [address] [place] [address] Assigned Musculoskeletal Provider 04/17/24 Tanisha Marlow 4120 [facility] [address] 03/30/24 documented as of this encounter
--- OUTSIDE RECORDS SUMMARY | 2024-09-19 23:04 | XMS_ITS | Encounter Summary ---
Author Organization [place] Address [address] [place] [address]. [place] [address] Care Team Providers Care Chronic Disease Epidemiologist Name Role Phone Carlos Joyner MD Unavailable [phone] Jadon Murray MD Unavailable [phone] Maru Villagomez RN Unavailable Unavailable Ang Slade MD Unavailable [phone] Carlos Joyner MD Unavailable [phone] Ang Slade MD Unavailable [phone] Lakshmi Wilhelm PA-C Unavailable [phone] Heladio Willoughby MD Primary Care Provider [phone] Heladio Willoughby MD Unavailable Alissa Perez PA-C Unavailable [phone] Lakshmi Wilhelm PA-C Unavailable [phone] Aidee Valero PA-C Unavailable [phone] Encounter Details Date Type Department Care Team (Late st Contact Info) Description 05/05/2023 [facility] Clinic [address] 4th [place] [address] Rosita Velasco, RN Social History [...] 09/20/2024 11:00 AM CDT Office Visit [address] [address] Sugey Mccoy, ENROLLMENT MANAGEMENT MANAGER [facility]6 [address] [place] [address] [address] [place], [place] 76[address] 09/27/2024 1:40 PM CDT Ancillary Procedure [address] [place] [address] [place] [address] [place] [address] 09/28/2024 10:30 AM CDT Therapy Visit [facility] 2200 [facility] [address] [place], [place] [phone] [place] [address] [place] [address] Daly Edmonds, OT 909 [place], [place] 95[address] Scheduled Procedures Name Priority Associated Diagnoses Date/Ti me NEPHROLITHOTOMY, PERCUTANEOU S, USING HOLMIUM LASER Kidney stone documented as of this encounter Visit Diagnoses Not on filedocumented in this encounter Care Teams Chronic Disease Epidemiologist Relationship Specialty Start [place] [address] [place] [address] PCP - General 03/05/23 Carlos Joyner MD [address] [place] [address] 828865 Urology 12/09/19 Jadon Murray MD [facility] 2530 [facility] 550 [place] [address] Referring Physician Pediatric Surgery 12/09/19 Maru Villagomez, RN Registered Nurse 12/10/19 Ang Slade MD [address] [place] [address] 394 [place], [place] [address] Urology 04/24/20 Carlos Joyner MD [address] [place] [address] 874135 Assigned Surgical Provider 12/24/20 Ang Slade MD [address] [place] [address] 533775 Urology 12/18/22 Lakshmi Wilhelm PA-C [address] [place] [address] 056625 Physician Surgical Services Assistant Urology 02/03/23 [place] [address] [place] [address] Assigned PCP 02/06/23 Alissa Perez PA-C [address] [place] [address] Physician Surgical Services Assistant Surgery 09/04/23 Lakshmi Wilhelm PA-C [address] [place] [address] Physician Surgical Services Assistant Urology 09/16/23 Aidee Valero PA-C [address] [place] [address] Assigned Musculoskeletal Provider 04/17/24 Tanisha Marlow 4120 [facility] [address] 03/30/24 documented as of this encounter
--- OUTSIDE RECORDS SUMMARY | 2024-09-19 23:04 | XMS_ITS | Encounter Summary ---
Author Organization [place] Address [address] [place] [address]. [place] [address] Care Team Providers Care Internal Medicine Physician Name Role Phone Carlos Joyner MD Unavailable [phone] Jdaon Murray MD Unavailable [phone] Maru Villagomez RN Unavailable Unavailable Ang Slade MD Unavailable [phone] Carlos Joyner MD Unavailable [phone] Ang Slade MD Unavailable [phone] Lakshmi Wilhelm-C Unavailable [phone] Heladio Willoughby MD Primary Care Provider [phone] Heladio Willoughby MD Unavailable Alissa Perez PA-C Unavailable [phone] Lakshmi Wilhelm-C Unavailable [phone] Aidee Valero PA-C Unavailable [phone] Reason for Visit * Reason Onset Date Comments Forms 02/06/2024 [facility] ecial Education Cooperative - Medication Authorization Form Encounter Details Date Type Department Care Team (Late st Contact Info) Description 02/06/2024 [facility] [address] [place] [address] [place] [address] [place] [address] Forms ([facility] Education Digital Marketing Apprentice... Social History Tobacco Use Types Packs/Day Years [...] Authorization Form Who is the form from? [facility] (if other please explain) Where did/will the form come from? form was sent via [employer] When is form/letter needed by: RUPA How would you like the form/letter returned: MyChart Printed forms and placed in provider's basket for review and signature Kasia Gutierrez Lead Reservation Manager [facility] documented in this encounter Plan of Treatment Upcoming Encounters Date Type Department Care Team (Late st Contact Info) Description 09/20/2024 11:00 AM CDT Office Visit [address] [phone] Sugey Mccoy, [facility] [address] [place] [address] 106 [place] [address] 09/27/2024 1:40 PM CDT Ancillary Procedure [address] [place] [phone] [place] [address] [place] [address] 09/28/2024 10:30 AM CDT Therapy Visit [facility] 2200 [facility] [address] [place] [address] [place] [address] [place] [address] Daly Edmonds, OT 909 [place] [address] Scheduled Procedures Name Priority Associated Diagnoses Date/Ti me NEPHROLITHOTOMY, PERCUTANEOU S, USING HOLMIUM LASER Kidney stone documented as of this encounter Visit Diagnoses Not on filedocumented in this encounter Care Teams Internal Medicine Physician Relationship Specialty Start [place] [address] [place] [address] PCP - General 03/05/23 Carlos Joyner MD [address] [place] [address] Urology 12/09/19 Jadon Murray MD [facility] 2530 [facility] [address] [place] [address] Referring Physician Pediatric Surgery 12/09/19 Maru Villagomez, RN Registered Nurse 12/10/19 Ang Slade MD 420 [facility] 394 [place], [place] 6[address]25 Urology 04/24/20 Carlos Joyner MD [address] [place] [address] 126175 Assigned Surgical Provider 12/24/20 Ang Slade MD 420 [facility] 394 [place], [place] 122135 Urology 12/18/22 Lakshmi Wilhelm PA-C [address] [place] [address] 958745 Physician Manager R D Urology 02/03/23 [place] [address] [place] [address] Assigned PCP 02/06/23 Alissa Perez PA-C [address] [place] [address] Physician Manager R D Surgery 09/04/23 Lakshmi Wilhelm PA-C [address] [place] [address] Physician Manager R D Urology 09/16/23 Aidee Valero PA-C 909 [place] [address] Assigned Musculoskeletal Provider 04/17/24 Tanisha Marlow [facility]0 [facility] [address] 03/30/24 documented as of this encounter
--- OUTSIDE RECORDS SUMMARY | 2024-09-19 23:04 | XMS_ITS | Encounter Summary ---
Author Organization [place] Address [address] [place] [address] Care Team Providers Care Tar Boiler Name Role Phone Carlos Joyner MD Unavailable [phone] Jadon Murray MD Unavailable [phone] Maru Villagomez RN Unavailable Unavailable Ang Slade MD Unavailable [phone] Carlos Joyner MD Unavailable [phone] Ang Slade MD Unavailable [phone] Lakshmi WilhelmC Unavailable [phone] Heladio Willoughby MD Primary Care Provider [phone] Heladio Willoughby MD Unavailable Alissa Perez PA-C Unavailable [phone] Lakshmi WilhelmC Unavailable [phone] Aidee ValeroC Unavailable [phone] Encounter Details Date Type Department Care Team (Late st Contact Info) Description 04/01/2024 [facility] [address] [place] [address] Aidee Valero PA-C [address] [place] [address] Social History Tobacco Use Types Packs/Day [...] 09/20/2024 11:00 AM CDT Office Visit [address] [address] Sugey Mccoy, SIDE GLUER [address] [address] 09/27/2024 1:40 PM CDT Ancillary Procedure [address] [place] [address] [place] [address] [place] [address] 09/28/2024 10:30 AM CDT Therapy Visit [facility] 2200 [facility] [address] [place] [address] [place] [address] [place] [address] Daly Edmonds, OT 909 [place], [place] 159835 Scheduled Procedures Name Priority Associated Diagnoses Date/Ti me NEPHROLITHOTOMY, PERCUTANEOU S, USING HOLMIUM LASER Kidney stone documented as of this encounter Visit Diagnoses Not on filedocumented in this encounter Care Teams Tar Boiler Relationship Specialty Start [place] [address] [place] [address] PCP - General 03/05/23 Carlos Joyner MD [address] [place] [address] 503535 Urology 12/09/19 Jadon Murray MD [facility] 2530 [facility] 550 [place] [address] Referring Physician Pediatric Surgery 12/09/19 Maru Villagomez, OTILIO Registered Nurse 12/10/19 Ang Slade MD [address] [place] [address] 394 [place], [place] 348805 Urology 04/24/20 Carlos Joyner MD [address] [place] [address] 948805 Assigned Surgical Provider 12/24/20 Ang Slade MD [address] [place] [address] Urology 12/18/22 Lakshmi Wilhelm PA-C [address] [place] [address] Physician Disulfurizer Tender Urology 02/03/23 [place] [address] [place] [address] Assigned PCP 02/06/23 Alissa Perez PA-C [address] [place] [address] Physician Disulfurizer Tender Surgery 09/04/23 Lakshmi Wilhelm PA-C [address] [place] [address] 593755 Physician Disulfurizer Tender Urology 09/16/23 Aidee Valero PA-C [address] [place] [address] Assigned Musculoskeletal Provider 04/17/24 Tanisha Marlow 4120 [facility] [address] 03/30/24 documented as of this encounter
--- OUTSIDE RECORDS SUMMARY | 2024-09-19 23:04 | XMS_ITS | Encounter Summary ---
Author Organization [place] Address [address] [place] [address] Care Team Providers Care Respiratory Coordinator Name Role Phone Carlos Joyner MD Unavailable [phone] Jadon Murray MD Unavailable [phone] Maru Villagomez RN Unavailable Unavailable Ang Slade MD Unavailable +[phone] Carlos Joyner MD Unavailable [phone] Ang Slade MD Unavailable [phone] Lakshmi Wilhelm-C Unavailable [phone] Heladio Willoughby MD Primary Care Provider [phone] Heladio Willoughby MD Unavailable Alissa Perez PA-C Unavailable [phone] Lakshmi Wilhelm-C Unavailable [phone] Aidee Valero PA-C Unavailable +[phone] Encounter Details Date Type Department Care Team [...] than three times a week 07/16/2024 Attends Yarsani Services Not on file 02/21 /2025 Active Member of Clubs or Organizations Not on f ile 07/16/2024 Attends Club or Organization Meetings Not on antelmo e 07/16/2024 Marital Status Not on file 07/16/2024 PHQ-2 Answer Date Recorded PHQ-2 Score Incomplete 07/21/2024 [facility] of Occupat ional Health - Occupational [...] building, in an overnight alf, or couch-surfing.) No 07/16/2024 Are you worried [...] Travel Start Travel End [place] 08/13/2024 08/19/2024 documented as of this encounter Plan of Treatment Upcoming Encounters Date Type Department Care Team (Late st Contact Info) Description 09/20/2024 11:00 AM CDT Office Visit [facility] [address] [place] [address] Darius Elvirginia Elder, NESTOR MOSQUERA [address] [place], [place] [address] 09/27/2024 1:40 PM CDT Ancillary Procedure [address] [place] [address] [place] [address] [address] [place], [place] [address] 09/28/2024 10:30 AM CDT Therapy Visit [facility] 2200 [facility] [address] [place] [address] [place] [address] [address] [place], [place] 2656068 Daly Edmonds, OT 909 [place] [address] Scheduled Procedures Name Priority Associated Diagnoses Date/Ti me NEPHROLITHOTOMY, PERCUTANEOU S, USING HOLMIUM LASER Kidney stone documented as of this encounter Visit Diagnoses Not on filedocumented in this encounter Care Teams Respiratory Coordinator Relationship Specialty Start [place] [address] [place] [address] PCP - General 03/05/23 Carlos Joyner MD 9 [place] [address] Urology 12/09/19 Jadon Murray MD [facility] 2530 [facility] 550 [place] [address] Referring Physician Pediatric Surgery 12/09/19 Maru Villagomez, RN Registered Nurse 12/10/19 Ang Slade MD 420 [facility] 394 [place], [place] 8616[address] MD Urology 04/24/20 Carlos Joyner MD [address] [place] [address] 785195 Assigned Surgical Provider 12/24/20 Ang Slade MD 420 [facility] 394 [place], [place] 608435 MD Urology 12/18/22 Lakshmi Wilhelm PA-C [address] [place] [address] 347115 Physician Safety Admin Assistant Urology 02/03/23 [place] [address] [place] [address] Assigned PCP 02/06/23 Alissa Perez PA-C [address] [place] [address] 110525 Physician Safety Admin Assistant Surgery 09/04/23 Lakshmi Wilhelm PA-C [address] [place] [address] 442095 Physician Safety Admin Assistant Urology 09/16/23 Aidee Valero PA-C 909 [place] [address] Assigned Musculoskeletal Provider 04/17/24 Tanisha Marlow 4120 [facility] [address] 03/30/24 documented as of this encounter
--- OUTSIDE RECORDS SUMMARY | 2024-09-19 23:04 | XMS_ITS | Encounter Summary ---
Author Organization [place] Address [address] [place] [address] Care Team Providers Care Vacuum Cleaner Operator Name Role Phone Carlos Joyner MD Unavailable [phone] Jadon Murray MD Unavailable [phone] Maru Villagomez RN Unavailable Unavailable Ang Slade MD Unavailable [phone] Carlos Joyner MD Unavailable [phone] Ang Slade MD Unavailable [phone] Lakshmi Wilhelm-C Unavailable [phone] Heladio Willoughby MD Primary Care Provider [phone] Heladio Willoughby MD Unavailable Alissa Perez PA-C Unavailable [phone] Lakshmi Wilhelm-C Unavailable [phone] Aidee Valero PA-C Unavailable [phone] Encounter Details Date Type Department Care Team [...] than three times a week 07/16/2024 Attends Mosque Services Not on file 02/21 /2025 Active Member of Clubs or Organizations Not on f ile 07/16/2024 Attends Club or Organization Meetings Not on antelmo e 07/16/2024 Marital Status Not on file 07/16/2024 PHQ-2 Answer Date Recorded PHQ-2 Score 0 09/13/2024 [facility] of Occupat ional Health - Occupational Stress [...] file Travel History Travel Start Travel End [place] 08/13/2024 08/19/2024 documented as of this encounter Plan of Treatment Upcoming Encounters Date Type Department Care Team (Late st Contact Info) Description 09/20/2024 11:00 AM CDT Office Visit [facility] [address] [place] [address] Darius Elvirginia Elder, NESTOR MOSQUERA [address] [place], [place] 57[address] 09/27/2024 1:40 PM CDT Ancillary Procedure [address] [place] [address] [place] [address] [address] [place], [place] 7[address] 09/28/2024 10:30 AM CDT Therapy Visit [facility] 2200 [facility] [address] [place] [address] [place] [address] [address] [place], [place] 1320368 Daly Edmonds, OT 909 [place] [address] Scheduled Procedures Name Priority Associated Diagnoses Date/Ti me NEPHROLITHOTOMY, PERCUTANEOU S, USING HOLMIUM LASER Kidney stone documented as of this encounter Visit Diagnoses Not on filedocumented in this encounter Care Teams Vacuum Cleaner Operator Relationship Specialty Start [place] [address] [place] [address] PCP - General 03/05/23 Carlos Joyner MD 9 [place] [address] Urology 12/09/19 Jadon Murray MD [facility] 2530 [facility] 550 [place] [address] Referring Physician Pediatric Surgery 12/09/19 Maru Villagomez, RN Registered Nurse 12/10/19 Ang Slade MD 420 [facility] 394 [place], [place] 331535 MD Urology 04/24/20 Carlos Joyner MD [address] [place] [address] 592405 Assigned Surgical Provider 12/24/20 Ang Slade MD 420 [facility] 394 [place], [place] 153645 MD Urology 12/18/22 Lakshmi Wilhelm PA-C [address] [place] [address] 629025 Physician Label Remover Urology 02/03/23 [place] [address] [place] [address] Assigned PCP 02/06/23 Alissa Perez PA-C [address] [place] [address] 078915 Physician Label Remover Surgery 09/04/23 Lakshmi Wilhelm PA-C [address] [place] [address] 076835 Physician Label Remover Urology 09/16/23 Aidee Valero PA-C 909 [place] [address] Assigned Musculoskeletal Provider 04/17/24 Tanisha Marlow 4120 [facility] [address] 03/30/24 documented as of this encounter
--- OUTSIDE RECORDS SUMMARY | 2024-09-19 23:04 | XMS_ITS | Encounter Summary ---
Author Organization [place] Address [address] [place] [address] Care Team Providers Care Production Operator Name Role Phone Carlos Joyner MD Unavailable [phone] Jadon Murray MD Unavailable [phone] Maru Villagomez RN Unavailable Unavailable Ignacia Duran MD Primary Care Provider [phone] Ang Slade MD Unavailable [phone] Carlos Joyner MD Unavailable [phone] Annalise Orta PA-C Unavailable [phone] Ang Slade MD Unavailable [phone] Lakshmi Wilhelm-C Unavailable [phone] Heladio Willoughby MD Primary Care Provider [phone] Heladio Willoughby MD Unavailable Alissa Perez PA-C Unavailable [phone] Lakshmi Wilhelm-C Unavailable Aidee Valero PA-C Unavailable [phone] Reason for Visit * Reason Onset Date Comments Call Back 06/27/2021 Bladder infectio n Encounter Details Date Type Department Care Team (Late st Contact Info) Description 06/27/2021 Telephone [facility] [address] 4th [place] [address] Carlos Joyner MD [address] [place] [address] Call Back (Bladder infection) Social History [...] Answer Date Recorded PHQ-2 Score Incomplete 07/21/2024 [facility] of Occupat ional Health - [...] Travel Start Travel End [place] 08/13/2024 08/19/2024 COVID-19 Exposure Response Date Recorded In the last 10 days, have ivelisse u been in contact with someone who was confirmed or suspected to have Coronavirus/COVID-19? No / Unsure 02/26/2023 10:28 AM CDT documented as of this encounter Miscellaneous Notes * Telephone Encounter - Karen Sheth - 06/27/2021 12:22 PM CST [facility] Call Center Phone Message May a [...] Center ([facility]): uro Travel Screening: Not Applicable AL GEAR GENERATOR documented in this encounter Plan of Treatment Upcoming Encounters Date Type Department Care Team (Late st Contact Info) Description 09/20/2024 11:00 AM CDT Office Visit [address] [address] Sugey Mccoy, MARKETING MANAGER [address] 973284 09/27/2024 1:40 PM CDT Ancillary Procedure [address] [place] [address] [place] [address] [place] [address] 09/28/2024 10:30 AM CDT Therapy Visit [facility] [address] [facility] [address] [place] [address] [place] [address] [place] [address] Daly Edmonds, OT 909 [place] [address] Scheduled Procedures Name Priority Associated Diagnoses Date/Ti [...] as of this encounter Care Teams Production Operator Relationship Specialty Start Date End Date Ignacia Duran MD PCP - General Pediatrics 01/20/20 03/04/23 [place] [address] [place] [address] PCP - General 03/05/23 Carlos Joyner MD 909 [place], [place] 170855 Urology 12/09/19 Jadon Murray MD [facility] 2530 [facility] [address] [address] Referring Physician Pediatric Surgery 12/09/19 Hernando, Maru, RN Registered Nurse 12/10/19 Ang Slade MD [address] [address] Urology 04/24/20 Carlos Joyner MD [address] [place] [address] 267865 Assigned Surgical Provider 12/24/20 Annalise Orta PA-C 5200 [place] [address] Assigned Cancer Care Provider 05/13/21 11/01/22 Ang Slade MD [address] [place] [address] Urology 12/18/22 Lakshmi Wilhelm PA-C [address] [place] [address] 677435 Physician Fire Boss Urology 02/03/23 [place] [address] [place] [address] Assigned PCP 02/06/23 Alissa Perez PA-C [address] [place] [address] 987075 Physician Fire Boss Surgery 09/04/23 Lakshmi Wilhelm PA-C [address] [place] [address] Physician Fire Boss Urology 09/16/23 Aidee Valero PA-C 909 [place] [address] Assigned Musculoskeletal Provider 04/17/24 Tanisha Marlow 4120 [facility] [address] 03/30/24 documented as of this encounter
--- OUTSIDE RECORDS SUMMARY | 2024-09-19 23:04 | XMS_ITS | Encounter Summary ---
Author Organization [place] Address [address] [place] [address] Care Team Providers Care Credit Intern Name Role Phone Carlos Joyner MD Unavailable [phone] Jadon Murray MD Unavailable [phone] Maru Villagomez RN Unavailable Unavailable Ang Slade MD Unavailable [phone] Carlos Joyner MD Unavailable [phone] Ang Slade MD Unavailable [phone] Lakshmi Wilhelm PA-C Unavailable Heladio Willoughby MD Primary Care Provider [phone] Heladio Willoughby MD Unavailable Alissa Perez PA-C Unavailable [phone] Lakshmi Wilhelm PA-C Unavailable [phone] Aidee Valero PA-C Unavailable [phone] Encounter Details Date Type Department Care Team (Late st Contact Info) Description 02/13/2024 [facility] [address] [place] [address] Carlos Joyner MD [address] [place] [address] Social History Tobacco Use Types Packs/Day [...] 09/20/2024 11:00 AM CDT Office Visit [address] [address] Sugey Mccoy, MEDICAL AND SCIENTIFIC ILLUSTRATOR [address] [address] 09/27/2024 1:40 PM CDT Ancillary Procedure [address] [place] [address] [place] [address] [place] [address] 09/28/2024 10:30 AM CDT Therapy Visit [facility] 2200 [facility] [address] [place] [address] [place] [address] [place] [address] Daly Edmonds, OT 909 [place], [place] 7[address]45 Scheduled Procedures Name Priority Associated Diagnoses Date/Ti me NEPHROLITHOTOMY, PERCUTANEOU S, USING HOLMIUM LASER Kidney stone documented as of this encounter Visit Diagnoses Not on filedocumented in this encounter Care Teams Credit Intern Relationship Specialty Start [place] [address] [place] [address] PCP - General 03/05/23 Carlos Joyner MD [address] [place] [address] 340155 Urology 12/09/19 Jadon Murray MD [facility] [address] [facility] 550 [place] [address] Referring Physician Pediatric Surgery 12/09/19 Maru Villagomez, OTILIO Registered Nurse 12/10/19 Ang Slade MD [address] [place] [address] 394 [place], [place] 497[address] Urology 04/24/20 Carlos Joyner MD [address] [place] [address] 991865 Assigned Surgical Provider 12/24/20 Ang Slade MD [address] [place] [address] 080605 MD Urology 12/18/22 Lakshmi Wilhelm PA-C [address] [place] [address] Physician Lime Mixer Tender Urology 02/03/23 [place] [address] [place] [address] Assigned PCP 02/06/23 Alissa Perez PA-C [address] [place] [address] 933875 Physician Lime Mixer Tender Surgery 09/04/23 Lakshmi Wilhelm PA-C [address] [place] [address] 579615 Physician Lime Mixer Tender Urology 09/16/23 Aidee Valero PA-C [address] [place] [address] 376435 Assigned Musculoskeletal Provider 04/17/24 Tanisha Marlow 4120 [facility] [address] 03/30/24 documented as of this encounter
--- OUTSIDE RECORDS SUMMARY | 2024-09-19 23:04 | XMS_ITS | Encounter Summary ---
Author Organization [place] Address [address] [place] [address]. [place] [address] Care Team Providers Care Bank Reconciliator Name Role Phone Carlos Joyner MD Unavailable [phone] Jadon Murray MD Unavailable [phone] Maru Villagomez RN Unavailable Unavailable Ang Slade MD Unavailable [phone] Carlos Joyner MD Unavailable [phone] Ang Slade MD Unavailable [phone] Lakshmi Wilhelm-C Unavailable [phone] Heladio Willoughby MD Primary Care Provider [phone] Heladio Willoughby MD Unavailable Alissa Perez PA-C Unavailable [phone] Lakshmi Wilhelm-C Unavailable [phone] Aidee Valero PA-C Unavailable [phone] Reason for Visit * Reason Onset Date Comments Vaginal Problem 08/20/2024 Encounter Details Date Type Department Care Team (Late st Contact Info) Description 08/20/2024 Telephone [facility] [address] [place] [address] [place] [address] [place] [address] Vaginal Problem Social History Tobacco [...] Answer Date Recorded PHQ-2 Score Incomplete 07/21/2024 [facility] [place] of Occupat ional Health - Occupational Stress [...] the lab tests as soon as possible, life insurance underwriter advised proxy to submit an e-visit through pt's [employer]. Sent instructions via [employer] on how to submit e-visit. HANS SalinasN, RN [facility] 08/20/2024 at 3:10 PM documented in this encounter Plan of Treatment Upcoming Encounters Date Type Department Care Team (Late st Contact Info) Description 09/20/2024 11:00 AM CDT Office Visit [address] [address] Sugey Mccoy, PLANT SCIENCES PROFESSOR [address] [place] [address] 09/27/2024 1:40 PM CDT Ancillary Procedure [address] [place] [address] [place] [address] [place] [address] 09/28/2024 10:30 AM CDT Therapy Visit [facility] 2200 [facility] [address] [place] [address] [place] [address] [place] [address] Daly Edmonds, OT 909 [place], [place] 835825 Scheduled Procedures Name Priority Associated Diagnoses Date/Ti me NEPHROLITHOTOMY, PERCUTANEOU S, USING HOLMIUM LASER Kidney stone documented as of this encounter Visit Diagnoses Not on filedocumented in this encounter Care Teams Bank Reconciliator Relationship Specialty Start [place] [address] [place] [address] PCP - General 03/05/23 Carlos Joyner MD [address] [place] [address] Urology 12/09/19 Jadon Murray MD [facility] 2530 [facility] 550 [place] [address] Referring Physician Pediatric Surgery 12/09/19 Maru Villagomez RN Registered Nurse 12/10/19 Ang Slade MD 420 [facility] 394 [place] [address] Urology 04/24/20 Carlos Joyner MD [address] [place] [address] Assigned Surgical Provider 12/24/20 Ang Slade MD [address] [place] [address] Urology 12/18/22 Lakshmi Wilhelm PA-C [address] [place] [address] Physician Cooling Machine Operator Urology 02/03/23 [place] [address] [place] [address] Assigned PCP 02/06/23 Alissa Perez PA-C [address] [place] [address] Physician Cooling Machine Operator Surgery 09/04/23 Lakshmi Wilhelm PA-C [address] [place] [address] Physician Cooling Machine Operator Urology 09/16/23 Aidee Valero PA-C [address] [place] [address] Assigned Musculoskeletal Provider 04/17/24 Tanisha Marlow 4120 [facility] [address] 03/30/24 documented as of this encounter
--- OUTSIDE RECORDS SUMMARY | 2024-09-19 23:04 | XMS_ITS | Encounter Summary ---
Author Organization [place] Address [address] [place] [address] Care Team Providers Care Sr. Unix System Administrator Name Role Phone Carlos Joyner MD Unavailable [phone] Jadon Murray MD Unavailable [phone] Maru Villagomez RN Unavailable Unavailable Ang Slade MD Unavailable [phone] Carlos Joyner MD Unavailable [phone] Ang Slade MD Unavailable [phone] Lakshmi Wilhelm-C Unavailable [phone] Heladio Willoughby MD Primary Care Provider [phone] Heladio Willoughby MD Unavailable Alissa Perez PA-C Unavailable [phone] Lakshmi Wilhelm-C Unavailable [phone] Aidee Valero PA-C Unavailable [phone] Encounter Details Date Type Department Care Team [...] than three times a week 07/16/2024 Attends Religion Services Not on file 02/21 /2025 Active Member of Clubs or Organizations Not on f ile 07/16/2024 Attends Club or Organization Meetings Not on antelmo e 07/16/2024 Marital Status Not on file 07/16/2024 PHQ-2 Answer Date Recorded PHQ-2 Score 0 09/13/2024 [facility] [place] of Occupat ional Health - Occupational Stress [...] Travel Start Travel End [place] 08/13/2024 08/19/2024 documented as of this encounter Plan of Treatment Upcoming Encounters Date Type Department Care Team (Late st Contact Info) Description 09/20/2024 11:00 AM CDT Office Visit [facility] [address] [place] [address] Darius Elvirginia Elder, NESTOR MOSQUERA [address] [place], [place] [address] 09/27/2024 1:40 PM CDT Ancillary Procedure [address] [place] [address] [place] [address] [place] [place], [place] 00945[address] 09/28/2024 10:30 AM CDT Therapy Visit [facility] 2200 [facility] [address] [place] [address] [place] [address] [address] [place], [place] 3240568 Daly Edmonds, OT 909 [place] [address] Scheduled Procedures Name Priority Associated Diagnoses Date/Ti me NEPHROLITHOTOMY, PERCUTANEOU S, USING HOLMIUM LASER Kidney stone documented as of this encounter Visit Diagnoses Not on filedocumented in this encounter Care Teams Sr. Unix System Administrator Relationship Specialty Start [place] [address] [place] [address] PCP - General 03/05/23 Carlos Joyner MD 9 [place] [address] Urology 12/09/19 Jadon Murray MD [facility] 2530 [facility] 550 [place] [address] Referring Physician Pediatric Surgery 12/09/19 Maru Villagomez, RN Registered Nurse 12/10/19 Ang Slade MD 420 [facility] 394 [place], [place] [address] MD Urology 04/24/20 Carlos Joyner MD [address] [place] [address] 068545 Assigned Surgical Provider 12/24/20 Ang Slade MD 420 [facility] 394 [place], [place] 075305 MD Urology 12/18/22 Lakshmi Wilhelm PA-C [address] [place] [address] 697405 Physician Medical Assembler Urology 02/03/23 [place] [address] [place] [address] Assigned PCP 02/06/23 Alissa Perez PA-C [address] [place] [address] 072655 Physician Medical Assembler Surgery 09/04/23 Lakshmi Wilhelm PA-C [address] [place] [address] 463715 Physician Medical Assembler Urology 09/16/23 Aidee Valero PA-C 909 [place] [address] Assigned Musculoskeletal Provider 04/17/24 Tanisha Marlow 4120 [facility] [address] 03/30/24 documented as of this encounter
--- OUTSIDE RECORDS SUMMARY | 2024-09-19 23:04 | XMS_ITS | Encounter Summary ---
Author Organization [place] Address [address] [place] [address] Care Team Providers Care Manager Payer Name Role Phone Carlos Joyner MD Unavailable [phone] Jadon Murray MD Unavailable [phone] Maru Villagomez RN Unavailable Unavailable Ignacia Duran MD Primary Care Provider Ang Slade MD Unavailable [phone] Carlos Joyner MD Unavailable [phone] Annalise Orta PA-C Unavailable [phone] Ang Slade MD Unavailable +[phone] Lakshmi Wilhelm PA-C Unavailable [phone] Heladio Willoughby MD Primary Care Provider [phone] Heladio Willoughby MD Unavailable Alissa Perez PA-C Unavailable [phone] Lakshmi Wilhelm PA-C Unavailable [phone] Aidee Valero PA-C Unavailable +[phone] Encounter Details Date Type Department Care Team (Late st Contact Info) Description 07/31/2021 [facility] [address] 5th [place] [address] Makenzie Drummond, RN Social History [...] Description 09/20/2024 11:00 AM CDT Office Visit [facility] [address] [phone] Sugey Mccoy, NESTOR [address] [place] [address] 09/27/2024 1:40 PM CDT Ancillary Procedure [address] [place] [phone] [place] [address] [place], [place] 7[address]66[address] 09/28/2024 10:30 AM CDT Therapy Visit [facility] [address] [facility] [address] [place] [address] [place] [address] [place] [address] Daly Edmonds, OT 909 [place] [address] Scheduled Procedures Name Priority Associated Diagnoses Date/Ti [...] as of this encounter Care Teams Manager Payer Relationship Specialty Start Date End Date Ignacia Duran MD PCP - General Pediatrics 01/20/20 03/04/23 [place] [address] [place] [address] PCP - General 03/05/23 Carlos Joyner MD [address] [place] [address] Urology 12/09/19 Jadon Murray MD [facility] [address] [address] Referring Physician Pediatric Surgery 12/09/19 Maru Villagomez, RN Registered Nurse 12/10/19 Ang Slade MD [address] [place] [address] Urology 04/24/20 Carlos Joyner MD [address] [place] [address] Assigned Surgical Provider 12/24/20 Annalise Orta PA-C 5200 [place] [address] Assigned Cancer Care Provider 05/13/21 11/01/22 Ang Slade MD [address] [address] Urology 12/18/22 Lakshmi Wilhelm PA-C [address] [place] [address] 874705 Physician It Risk And Assurance Senior Manager Urology 02/03/23 [place] [address] [facility] [address] Assigned PCP 02/06/23 Alissa Perez PA-C [address] [place] [address] 870725 Physician It Risk And Assurance Senior Manager Surgery 09/04/23 Lakshmi Wilhelm PA-C [address] [place] [address] 640695 Physician It Risk And Assurance Senior Manager Urology 09/16/23 Aidee Valero PA-C [address] [place] [address] 831905 Assigned Musculoskeletal Provider 04/17/24 Tanisha Marlow [address] [facility] [address] 03/30/24 documented as of this encounter
--- OUTSIDE RECORDS SUMMARY | 2024-09-19 23:04 | XMS_ITS | Encounter Summary ---
Author Organization [place] Address [address] [place] [address] Care Team Providers Care Crawler Crane Operator Name Role Phone Carlos Joyner MD Unavailable [phone] Jadon Murray MD Unavailable [phone] Maru Villagomez RN Unavailable Unavailable Ang Slade MD Unavailable +[phone] Carlos Joyner MD Unavailable [phone] Ang Slade MD Unavailable [phone] Lakshmi Wilhelm-C Unavailable [phone] Heladio Willoughby MD Primary Care Provider [phone] Heladio Willoughby MD Unavailable Alissa Perez PA-C Unavailable [phone] Lakshmi Wilhelm-C Unavailable [phone] Aidee Valero PA-C Unavailable [phone] Encounter Details Date Type Department Care Team (Late st Contact Info) Description 07/01/2023 [facility] Medical Advice [facility] [address] [place] [address] Joao Arceo MA Social History Tobacco [...] Description 09/20/2024 11:00 AM CDT Office Visit [address] [address] Sugey Mccoy, HAND II [facility] [address] [place] [address] [address] [place] [address] 09/27/2024 1:40 PM CDT Ancillary Procedure [address] [place] [address] [place] [address] [facility] [place] [address] 09/28/2024 10:30 AM CDT Therapy Visit [facility] [address] [facility] [address] [place], [place] [phone] [place] [address] [place] [place], [place] [phone] Daly Edmonds, OT 909 [place] [address] Scheduled Procedures Name Priority Associated Diagnoses Date/Ti me NEPHROLITHOTOMY, PERCUTANEOU S, USING HOLMIUM LASER Kidney stone documented as of this encounter Visit Diagnoses Not on filedocumented in this encounter Care Teams Crawler Crane Operator Relationship Specialty Start [place] [address] [place] [place], [place] 6193168 PCP - General 03/05/23 Carlos Joyner MD [address] [place] [address] 472035 Urology 12/09/19 Jadon Murray MD [facility] [address] [facility] [address] [place] [address] Referring Physician Pediatric Surgery 12/09/19 Maru Villagomez, RN Registered Nurse 12/10/19 Ang Slade MD [address] [place] [address] 394 [place], [place] 103685 Urology 04/24/20 Carlos Joyner MD 9 [place], [place] 777435 Assigned Surgical Provider 12/24/20 Ang Slade MD [address] [place] [address] 798445 Urology 12/18/22 Lakshmi Wilhelm PA-C [address] [place] [address] 369175 Physician Home Help Aide Urology 02/03/23 [place] [address] [place] [address] Assigned PCP 02/06/23 Alissa Perez PA-C [address] [place] [address] Physician Home Help Aide Surgery 09/04/23 Lakshmi Wilhelm PA-C [address] [place] [address] Physician Home Help Aide Urology 09/16/23 Aidee Valero PA-C [address] [place] [address] Assigned Musculoskeletal Provider 04/17/24 Tanisha Marlow 4120 [facility] [address] 03/30/24 documented as of this encounter
--- OUTSIDE RECORDS SUMMARY | 2024-09-19 23:04 | XMS_ITS | Encounter Summary ---
Author Organization [place] Address [address] [place] [address] Care Team Providers Care Plating Stripper Name Role Phone Carlos Joyner MD Unavailable [phone] Jadon Murray MD Unavailable [phone] Maru Villagomez RN Unavailable Unavailable Ang Slade MD Unavailable [phone] Carlos Joyner MD Unavailable [phone] Ang Slade MD Unavailable [phone] Lakshmi Wilhelm PA-C Unavailable Heladio Willoughby MD Primary Care Provider [phone] Heladio Willoughby MD Unavailable Alissa Perez PA-C Unavailable [phone] Lakshmi Wilhelm PA-C Unavailable [phone] Aidee Valero PA-C Unavailable [phone] Encounter Details Date Type Department Care Team (Late st Contact Info) Description 06/25/2023 [facility] [address] [place] [address] Carlos Joyner MD [address] [place] [address] Social History Tobacco Use Types Packs/Day [...] Description 09/20/2024 11:00 AM CDT Office Visit [address] [address] Sugey Mccoy, SOX ANALYST [address] [address] 09/27/2024 1:40 PM CDT Ancillary Procedure [address] [place] [address] [place] [address] [place] [address] 09/28/2024 10:30 AM CDT Therapy Visit [facility] [address] [facility] [address] [place] [address] [place] [address] [place] [address] Daly Edmonds, OT 909 [place], [place] 729315 Scheduled Procedures Name Priority Associated Diagnoses Date/Ti me NEPHROLITHOTOMY, PERCUTANEOU S, USING HOLMIUM LASER Kidney stone documented as of this encounter Visit Diagnoses Not on filedocumented in this encounter Care Teams Plating Stripper Relationship Specialty Start [place] [address] [place] [address] PCP - General 03/05/23 Carlos Joyner MD [address] [place] [address] 620385 Urology 12/09/19 Jadon Murray MD [facility] [address] [facility] [address] [place] [address] Referring Physician Pediatric Surgery 12/09/19 Maru Villagomez, OTILIO Registered Nurse 12/10/19 Ang Slade MD [address] [place] [address] 394 [place], [place] 710335 Urology 04/24/20 Carlos Joyner MD [address] [place] [address] 674325 Assigned Surgical Provider 12/24/20 Ang Slade MD [address] [place] [address] 559695 MD Urology 12/18/22 Lakshmi Wilhelm PA-C [address] [place] [address] Physician Lead Generation Representative Urology 02/03/23 [place] [address] [place] [address] Assigned PCP 02/06/23 Alissa Perez PA-C [address] [place] [address] 174655 Physician Lead Generation Representative Surgery 09/04/23 Lakshmi Wilhelm PA-C [address] [place] [address] 024055 Physician Lead Generation Representative Urology 09/16/23 Aidee Valero PA-C [address] [place] [address] 526685 Assigned Musculoskeletal Provider 04/17/24 Tanisha Marlow 4[address] [facility] [address] 03/30/24 documented as of this encounter
--- OUTSIDE RECORDS SUMMARY | 2024-09-19 23:04 | XMS_ITS | Clinical Summary ---
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 Resolved Problems Problem Noted Date Diagnosed Date Resolved Date Adjustment disorder with mix ed disturbance of emotions and conduct 07/04/2011 11/23/2018 Immunizations Immunization Administration Dates Next Due DTaP 01/18/2008,05/06/2005 [id number] (Pediarix) 05/27/2003,03/21/2003,0 2002 HIB PRP-T (ActHIB,Hiberix) 05/27/2003,03/21/2003 [...] on file Legal Sex Female 6:29 AM HALFTONE OPERATOR Gender Identity Not on file Sexual Orientation [...] Comments Blood Pressure 123/80 07/12/2021 1:30 PM HALFTONE OPERATOR Pulse 98 07/12/2021 1:30 PM HALFTONE OPERATOR Temperature 36.9 C (98.5 F) 07/12/2021 1:30 PM HALFTONE OPERATOR Respiratory Rate 18 07/03/2015 5:27 PM HALFTONE OPERATOR Oxygen Saturation 98% 07/12/2021 1:30 PM HALFTONE OPERATOR Inhaled Oxygen Concentration - - Weight 61.2 kg (135 lb) 07/03/2015 5:27 PM HALFTONE OPERATOR Height - - Body Mass Index - [...] topic Tdap Completed 01/16/2015, 01/16/2015 Insurance MEDICAID [facility] MEDICARE PART A HB ONLY MEDICARE PART B HB ONLY MEDICARE PB ONLY MEDICAID [id number] [place] [address] Advance Directives Documents on File Type Date Recorded Patient Wool Classer Expl anation Power of Artist Woodblock 06/24/2023 1:00 PM Care Teams Ampoule Filler And Sealer Relationship Specialty Start Date End Date Ignacia Duran MD PCP - General Pediatric 10/07/19
--- OUTSIDE RECORDS SUMMARY | 2024-09-19 23:04 | XMS_ITS | Encounter Summary ---
Author Organization [place] Address [address] [place] [address] Care Team Providers Care Windows Server Specialist Name Role Phone Carlos Joyner MD Unavailable [phone] Jadon Murray MD Unavailable [phone] Maru Villagomez RN Unavailable Unavailable Ang Slade MD Unavailable [phone] Carlos Joyner MD Unavailable [phone] Ang Slade MD Unavailable [phone] Lakshmi WilhelmC Unavailable [phone] Heladio Willoughby MD Primary Care Provider [phone] Heladio Willoughby MD Unavailable Alissa Perez PA-C Unavailable [phone] Lakshmi WilhelmC Unavailable [phone] Aidee ValeroC Unavailable [phone] Encounter Details Date Type Department Care Team (Late st Contact Info) Description 03/30/2024 Telephone [facility] Orthopedic [address] 4th [place] [address] Aidee Valero PA-C [address] [place] [address] Social History Tobacco Use Types Packs/Day [...] Score Incomplete 07/21/2024 [facility] - Occupational [...] Abdullahi - 03/30/2024 3:23 PM CST M [facility] Call Center Phone Message May a detailed message be left on voicemail: yes Reason for Call: Other: Anna is calling from Medical Records at [facility]. She is calling as she wants to know the time frame of records that are being requested? Action Taken: Other: te Travel Screening: Not Applicable Date of Service: GER VAN documented in this encounter Plan of Treatment Upcoming Encounters Date Type Department Care Team (Late st Contact Info) Description 09/20/2024 11:00 AM CDT Office Visit [facility] [address] [phone] Sugey Mccoy, PAID INTERN [facility] [address] [place] [address] [address] [place] [address] 09/27/2024 1:40 PM CDT Ancillary Procedure [address] [place] [phone] [place] [address] [place] [address] 09/28/2024 10:30 AM CDT Therapy Visit [facility] Rehabilitation Services [facility] [address] [place] [address] [address] [place] [address] [place] [address] [place] [id number] Daly Edmonds, OT 909 [place], [place] 147115 Scheduled Procedures Name Priority Associated Diagnoses Date/Ti me NEPHROLITHOTOMY, PERCUTANEOU S, USING HOLMIUM LASER Kidney stone documented as of this encounter Visit Diagnoses Not on filedocumented in this encounter Care Teams Windows Server Specialist Relationship Specialty Start [place] [address] [facility] [place] [address] PCP - General 03/05/23 Carlos Joyner MD [address] [place] [address] 174525 Urology 12/09/19 Jadon Murray MD [facility] [address] [id number] Referring Physician Pediatric Surgery 12/09/19 Maru Villagomez, OTILIO Registered Nurse 12/10/19 Ang Slade MD [address] [place] [address] 825205 Urology 04/24/20 Carlos Joyner MD [address] [place] [address] Assigned Surgical Provider 12/24/20 Ang Slade MD [address] [place] [address] 664625 Urology 12/18/22 Lakshmi Wilhelm PA-C [address] [place] [address] 523525 Physician Inclusion Manager Urology 02/03/23 [place] [address] [place] [address] Assigned PCP 02/06/23 Alissa Perez PA-C [address] [place] [address] 996335 Physician Inclusion Manager Surgery 09/04/23 Lakshmi Wilhelm PA-C [address] [place] [address] 374995 Physician Inclusion Manager Urology 09/16/23 Aidee Valero PA-C 909 [place], [place] 126825 Assigned Musculoskeletal Provider 04/17/24 Tanisha Marlow 4120 [facility] [address] 03/30/24 documented as of this encounter
--- OUTSIDE RECORDS SUMMARY | 2024-09-19 23:04 | XMS_ITS | Encounter Summary ---
Author Organization [place] Address [address] [place] [address] Care Team Providers Care Boiler Assistant Operator Name Role Phone Carlos Joyner MD Unavailable [phone] Jadon Murray MD Unavailable [phone] Maru Villagomez RN Unavailable Unavailable Ang Slade MD Unavailable [phone] Carlos Joyner MD Unavailable [phone] Ang Slade MD Unavailable [phone] Lakshmi Wilhelm-C Unavailable [phone] Heladio Willoughby MD Primary Care Provider [phone] Heladio Willoughby MD Unavailable Alissa Perez PA-C Unavailable [phone] Lakshmi Wilhelm-C Unavailable [phone] Aidee Valero PA-C Unavailable [phone] Reason for Visit * Reason Onset Date Comments Call Back 04/21/2024 Pt still having UTI Symptoms. They are wanting to see about getting a new antibiotic. Please call Nurse correctional case manager at [phone]. Please call Yamini. As they would like to get something done prior to the holiday. Thanks Encounter Details Date Type Department Care Team ([facility] st Contact Info) Description 04/21/2024 Telephone [facility] Clinic [address] 4th [place] [address] Carlos Joyner MD [address] [place] [address] Call Back (Pt still having UTI Symptoms. They are wanting to see about getting a new antibiotic. Please call Nurse correctional case manager at [phone]. Please call Yamini. As they would like [...] than three times a week 07/16/2024 Attends [employer] Services Not on file 07/16 Active Member of Clubs or Organizations Not on f ile 07/16/2024 Attends Club or Organization Meetings Not on antelmo e 07/16/2024 Marital Status Not on file 07/16/2024 PHQ-2 Answer Date Recorded PHQ-2 Score Incomplete 07/21/2024 [facility] - [...] Benjamin - 04/21/2024 8:39 AM CST M [facility] Call Center Phone Message May a detailed message be left on voicemail: no Reason for Call: Other: Pt still having UTI Symptoms. They are wanting to see about getting a new antibiotic. Please call Nurse correctional case manager at [phone]. Please call Yamini. As they would like to get something done prior to the holiday. Thanks Action Taken: Other: uro Travel Screening: Not Applicable Date of Service: OLOGY SCHEDULER documented in this encounter Plan of Treatment Upcoming Encounters Date Type Department Care Team (Late st Contact Info) Description 09/20/2024 11:00 AM CDT Office Visit [address] [address] Sugey Mccoy, NESTOR [address] [address] 09/27/2024 1:40 PM CDT Ancillary Procedure [address] [place] [phone] [place] [address] [place] [address] 09/28/2024 10:30 AM CDT Therapy Visit [facility] [address] [place] [address] [address] [place], [place] [phone] [place] [address] [place] [address] Daly Edmonds, OT 909 [place], [place] 7284[address] Scheduled Procedures Name Priority Associated Diagnoses Date/Ti me NEPHROLITHOTOMY, PERCUTANEOU S, USING HOLMIUM LASER Kidney stone documented as of this encounter Visit Diagnoses Not on filedocumented in this encounter Care Teams Boiler Assistant Operator Relationship Specialty Start [place] [address] [place] [address] PCP - General 03/05/23 Carlos Joyner MD [address] [place] [address] Urology 12/09/19 Jadon Murray MD [facility] 2530 [facility] 550 [place] [address] Referring Physician Pediatric Surgery 12/09/19 Maru Villagomez, OTILIO Registered Nurse 12/10/19 Ang Slade MD [address] [place] [address] 394 [place] [address] Urology 04/24/20 Carlos Joyner MD [address] [place] [address] Assigned Surgical Provider 12/24/20 Ang Slade MD [address] [place] [address] Urology 12/18/22 Lakshmi Wilhelm PA-C [address] [place] [address] Physician Restaurant Maintenance Technician Urology 02/03/23 [place] [address] [place] [address] Assigned PCP 02/06/23 Alissa Perez PA-C [address] [place] [address] Physician Restaurant Maintenance Technician Surgery 09/04/23 Lakshmi Wilhelm PA-C [address] [place] [address] Physician Restaurant Maintenance Technician Urology 09/16/23 Aidee Valero PA-C [address] [place] [address] Assigned Musculoskeletal Provider 04/17/24 Tanisha Marlow 4120 [facility] [address] 03/30/24 documented as of this encounter
--- OUTSIDE RECORDS SUMMARY | 2024-09-19 23:04 | XMS_ITS | Encounter Summary ---
Author Organization [facility] Address [address] [place] [address] Care Team Providers Care Pipe Puller Name Role Phone Carlos Joyner MD Unavailable [phone] Jadon Murray MD Unavailable [phone] Maru Villagomez RN Unavailable Unavailable Ang Slade MD Unavailable [phone] Carlos Joyner MD Unavailable [phone] Ang Slade MD Unavailable [phone] Lakshmi Wilhelm-C Unavailable [phone] Heladio Willoughby MD Primary Care Provider [phone] Heladio Willoughby MD Unavailable Alissa Perez PA-C Unavailable [phone] Lakshmi Wilhelm-C Unavailable [phone] Aidee Valero PA-C Unavailable [phone] Reason for Referral * Rehab Therapy Physical Therapy (Routine: Next available opening) - Pending Review Specialty Diagnoses / Procedures Referred By Contabran t Referred To Contact Diagnoses Thoracic spina bifida, unspecified hydrocephalus presence (H) [place] [address] [place] [address] Phone: tel: fax: Other External Hospital (IP) [address] [place] [address] Phone: tel: Referral ID Status Reason Start Date Expiration Date V isits Requested Visits Authorized [id number] Pending Review 09/13/2024 09/13/2025 1 1 Question Answer Course of Action: Evaluation and Treatment Specialty Services: Pool Therapy ([place] Only) Patient Scheduling Instructions: [facility] will call you to coordinate your care as prescribed by your provider. If you don't hear from a parts representative within 2 business days, please call . Comments Please be aware that coverage of these services is subject to the terms and limitations of your health insurance plan. Call member services at your health plan with any benefit or coverage questions. Pool therapy request: Please fax referral to [facility] Location: [address] [place] [address] [facility] will call you to coordinate your care as prescribed by your provider. If you don't hear from a parts representative within 2 business days, please call . * Diagnostic Imaging Ultrasound (Routine) - Pending Review Specialty Diagnoses / Procedures Referred By Charli sylvester Referred To Contact Radiology. Diagnoses Horseshoe kidney with renal calculus Procedures US Pelvic Complete [place] [address] [address] [place] [address] Phone: tel: fax: Referral ID Status Reason Start Date Expiration Date V isits Requested Visits Authorized [id number] Pending Review 09/13/2024 09/13/2025 1 1 Reason for Visit * Reason Comments IUD Encounter Details Date Type Department Care Team (Late st Contact Info) Description 09/13/2024 11:00 AM CDT Office Visit [facility] [address] [phone] [place] [address] [place] [address] Screening for cervical cancer (Primary Dx); [...] than three times a week 07/16/2024 Attends Nondenominational Services Not on file 07/16 Active Member of Clubs or Organizations Not on f ile 07/16/2024 Attends Club or Organization Meetings Not on antelmo e 07/16/2024 Marital Status Not on file 07/16/2024 PHQ-2 Answer Date Recorded PHQ-2 Score 0 09/13/2024 [facility] of Occupat ional Health - [...] dependence Requesting referral for pool therapy at [facility] [place]. Placed. - Physical Therapy Computer Forensics Investigator Referral BMI Estimated body mass index is 28.22 kg/m?? as calculated from the following: Height as of 03/30/24: 1.473 m (4' 10). Weight as of 03/30/24: 61.2 kg (135 lb). Follow up pending labs/image Heladio Willoughby MD [facility] 09/13/2024 Yared Marina is a 23 year [...] 09/20/2024 11:00 AM CDT Office Visit [address] [address] Sugey Mccoy, RECREATION THERAPY TEACHER FIELD MARKETING SPECIALIST [address] [place] [address] [address] [place], [place] [address] 09/27/2024 1:40 PM CDT Ancillary Procedure [address] [place] [address] [place] [address] [place] [address] 09/28/2024 10:30 AM CDT Therapy Visit [facility] [address] [facility] [address] [place] [address] [place] [address] [facility] [address] Daly Edmonds, OT 909 [place] [address] Scheduled Orders Name Type Priority Associated Diagnoses Orde r Schedule US Pelvic Complete with Transvaginal Imaging Routine Horseshoe kidney with renal calculus Expected: 09/13/2024 (Approximate), Expires: 09/13/2025 Scheduled Procedures Name Priority Associated Diagnoses Date/Ti me NEPHROLITHOTOMY, PERCUTANEOU S, USING HOLMIUM LASER Kidney stone Scheduled Referrals Name Type Priority Associated Diagnoses Orde r Schedule Physical Therapy Computer Forensics Investigator Referral Referral Routine: Next available opening Thoracic [...] component of this testing was completed at [facility]. Stain controls for all stains resulted within this report have been reviewed and show appropriate reactivity. 2024 1:59 PM CDT SPECIALTY LABS Brushing ENDOCERVICAL STRUCTURE / Unknown Non-blood Collection / Unknown 09/13/2024 12:04 PM CDT 09/13/2024 12:07 PM CDT us Heladio COLLINS - JOHN GALLEGOS Final Result SPECIALTY LAB[facility] [address] [facility], [address] [place] [phone] * (ABNORMAL) RBC and Platelet Morphology (09/13/2024 [...] BLOOD ORDERABLES Final Res ult [facility] LABORATORY [facility] [address] Lab (1st floor, no room number) [place] [address] * CBC with platelets and differential (09/13/2024 [...] BLOOD ORDERABLES Final Res ult [facility]AT[facility] [address] Lab (1st floor, no room number) [place] [address], [facility] * (ABNORMAL) Comprehensive metabolic panel (09/13/2024 11:03 [...] BLOOD ORDERABLES Final Res ult [facility]AT[facility] [place] [facility] [address], [address] [phone] * Vitamin D Deficiency (09/13/2024 11:03 AM CDT) Vitamin D, Total (25-Hydroxy) 27 20 - 50 ng/mL 09/14/2024 8:50 AM CDT [facility] Comment:optimum levels Blood BLOOD SPECIMEN / Unknown Venipuncture / Unknown 09/13/2024 11:03 AM CDT 09/13/2024 11:03 AM CDT Narrative [facility] - 09/14/2024 8:50 AM CDT Season, race, dietary intake, and treatment affect the concentration of 32-ppmmlcr-Boozjzc D. Values may decrease during winter months and increase during summer months. Vitamin D determination is routinely performed by an immunoassay specific for 25 hydroxyvitamin D3. If an individual is on vitamin D2(ergocalciferol) supplementation, please specify 25 OH vitamin D2 and D3 level determination by LCMSMS test VITD23. us Heladio Willoughby MD LAB - BLOOD ORDERABLES Final Res ult [facility] [place] [facility] [address] [facility], Room [address] [phone] * Lipid panel reflex to direct LDL [...] ORDERABLES Final Res ult Performing Organization Address City/[facility]/ZIP Co de Phone Number LABORATORY [facility] [place] [facility] [address] [facility], [address] [phone] * HCG qualitative (09/13/2024 11:03 AM CDT) hCG Serum Qualitative Negative Negative LINDA 09/13/2024 8:35 PM CDT U LABORATORY Comment:This test is for scr eening purposes. Results should be interpreted along with the clinical picture. Confirmation testing is available if warranted by ordering [id number], HCG Quantitative . Blood BLOOD SPECIMEN / Unknown Venipuncture / Unknown 09/13/2024 11:03 AM CDT 09/13/2024 11:03 AM CDT Heladio Willoughby MD LAB - BLOOD ORDERABLES Final Res ult LABORATORY [facility] [place] [facility] [address] [facility], [address] [address] documented in this encounter Visit Diagnoses Diagnosis Screening for cervical cancer- Primary Screening for malignant neoplasm of the cervix Horseshoe kidney with renal calculus Encounter for IUD insertion Encounter for insertion of intrauterine contraceptive device Thoracic spina bifida, unspecified hydrocephalus presence (H) Wheelchair dependence documented in this encounter Care Teams Pipe Puller Relationship Specialty [place] [address] [place] [address] PCP - General 03/05/23 Carlos Joyner MD [address] [place] [address] Urology 12/09/19 Jadon Murray MD [facility] [address] [phone] Referring Physician Pediatric Surgery 12/09/19 Maru Villagomez, OTILIO Registered Nurse 12/10/19 Ang Slade MD [address] [place] [address] 135235 Urology 04/24/20 Carlos Joyner MD [address] [place] [address] 829475 Assigned Surgical Provider 12/24/20 Ang Slade MD [address] [place] [address] 478715 Urology 12/18/22 Lakshmi Wilhelm PA-C [address] [place] [address] 237065 Physician Public Message Service Supervisor Urology 02/03/23 [place] [address] [place] [address] Assigned PCP 02/06/23 Alissa Perez PA-C [address] [place] [address] Physician Public Message Service Supervisor Surgery 09/04/23 Lakshmi Wilhelm PA-C [address] [place] [address] Physician Public Message Service Supervisor Urology 09/16/23 Aidee Valero PA-C [address] [place] [address] 442725 Assigned Musculoskeletal Provider 04/17/24 Tanisha Marlow [address] [facility] [address] 03/30/24 documented as of this encounter
--- OUTSIDE RECORDS SUMMARY | 2024-09-19 23:04 | XMS_ITS | Encounter Summary ---
Author Organization [facility] Address [address] [place] [address] Care Team Providers Care Station Agent Name Role Phone Carlos Joyner MD Unavailable [phone] Jadon Murray MD Unavailable [phone] Maru Villagomez RN Unavailable Unavailable Ang Slade MD Unavailable [phone] Carlos Joyner MD Unavailable [phone] Ang Slade MD Unavailable [phone] Lakshmi Wilhelm PA-C Unavailable [phone] Heladio Willoughby MD Primary Care Provider [phone] Heladio Willoughby MD Unavailable Alissa Perez PA-C Unavailable [phone] Lakshmi Wilhelm PA-C Unavailable [phone] Aidee Valero PA-C Unavailable [phone] Reason for Visit * Reason Onset Date Comments Appointment 03/09/2024 Encounter Details Date Type Department Care Team (Late st Contact Info) Description 03/09/2024 Telephone [facility] Orthopedic [place] [id number] [facility] [address] 4th [place] [address] Unknown, Doctor, MD Appointment Social [...] than three times a week 07/16/2024 Attends Scientology Services Not on file 07/16 Active Member [...] Description 09/20/2024 11:00 AM CDT Office Visit [address] [phone] Sugey Mccoy, SUPPLY CHAIN ASSISTANT [facility] [address] [place] [address] 09/27/2024 1:40 PM CDT Ancillary Procedure [address] [place] [phone] [place] [address] [address] [place], [place] [address] 09/28/2024 10:30 AM CDT Therapy Visit [facility] Rehabilitation [facility] [address] [facility] [address] [place] [address] [place] [address] [address] [place] [id number] Daly Edmonds, OT 909 [place] [address] Scheduled Procedures Name Priority Associated Diagnoses Date/Ti me NEPHROLITHOTOMY, PERCUTANEOU S, USING HOLMIUM LASER Kidney stone documented as of this encounter Visit Diagnoses Not on filedocumented in this encounter Care Teams Station Agent Relationship Specialty Start [place] [address] [place] [address] PCP - General 03/05/23 Carlos Joyner MD [address] [place] [address] Urology 12/09/19 Jadon Murray MD [facility] [address] [address] Referring Physician Pediatric Surgery 12/09/19 Maru Villagomez, OTILIO Registered Nurse 12/10/19 Ang Slade MD [address] [place] [address] Urology 04/24/20 Carlos Joyner MD [address] [place] [address] 793135 Assigned Surgical Provider 12/24/20 Ang Slade MD [address] [place] [address] Urology 12/18/22 Lakshmi Wilhelm PA-C [address] [place] [address] Physician Floor Finisher Helper Urology 02/03/23 [place] [address] [place] [address] Assigned PCP 02/06/23 Alissa Perez PA-C [address] [place] [address] 584665 Physician Floor Finisher Helper Surgery 09/04/23 Lakshmi Wilhelm PA-C [address] [place] [address] [id number] Physician Floor Finisher Helper Urology 09/16/23 Aidee Valero PA-C [address] [place] [address] [id number] Assigned Musculoskeletal Provider 04/17/24 Tanisha Marlow 4[address] [facility] [address] 03/30/24 documented as of this encounter
--- OUTSIDE RECORDS SUMMARY | 2024-09-19 23:04 | XMS_ITS | Encounter Summary ---
Author Organization [facility] Address [address] [place] [address] Care Team Providers Care Roving Court Reporter Name Role Phone Carlos Joyner MD Unavailable [phone] Jadon Murray MD Unavailable [phone] Maru Villagomez RN Unavailable Unavailable Ignacia Duran MD Primary Care Provider [phone] Ang Slade MD Unavailable [phone] Carlos Joyner MD Unavailable [phone] Annalise Orta PA-C Unavailable [phone] Ang Slade MD Unavailable [phone] Lakshmi Wilhelm PA-C Unavailable [phone] Heladio iWlloughby MD Primary Care Provider [phone] Heladio Willoughby MD Unavailable Alissa Perez PA-C Unavailable [phone] Lakshmi Wilhelm PA-C Unavailable [phone] Aidee Valero PA-C Unavailable [phone] Encounter Details Date Type Department Care Team (Late st Contact Info) Description 07/19/2021 [facility] [place] [address] [facility] 4th [place] [address] Shyann Rehman Social History Tobacco [...] COVID-19? No / Unsure 06/19/2021 11:16 AM REVENUE RESEARCH ANALYST documented as of this encounter Plan of Treatment Upcoming Encounters Date Type Department Care Team (Late st Contact Info) Description 09/20/2024 11:00 AM CDT Office Visit [address] [phone] Sugey Mccoy APRN [address] [place], [place] [address] 09/27/2024 1:40 PM CDT Ancillary Procedure [address] [place] [phone] [place] [address] [place] [address] 09/28/2024 10:30 AM CDT Therapy Visit [facility] Rehabilitation Services [facility] [address] [facility] [address] [place] [address] [place] [address] [place] [address] Daly Edmonds, OT 909 [place] [address] Scheduled Procedures Name Priority Associated Diagnoses Date/Ti [...] documented as of this encounter Care Teams Roving Court Reporter Relationship Specialty Start Date End Date Ignacia Duran MD PCP - General Pediatrics 01/20/20 03/04/23 [place] [address] [place] [address] PCP - General 03/05/23 Carlos Joyner MD [address] [place] [address] Urology 12/09/19 Jadon Murray MD [facility] [address] [address] Referring Physician Pediatric Surgery 12/09/19 Maru Villagomez, OTILIO Registered Nurse 12/10/19 Ang Slade MD [address] [place] [address] 478995 Urology 04/24/20 Carlos Joyner MD [address] [place] [address] Assigned Surgical Provider 12/24/20 Annalise Orta PA-C [address] [place] [address] Assigned Cancer Care Provider 05/13/21 11/01/22 Ang Slade MD [address] [place] [address] Urology 12/18/22 Lakshmi Wilhelm PA-C [address] [place] [address] Physician Head Inspector And Center Marker Urology 02/03/23 [place] [address] [place] [address] Assigned PCP 02/06/23 Alissa Perez PA-C [address] [place] [address] Physician Head Inspector And Center Marker Surgery 09/04/23 Lakshmi Wilhelm PA-C [address] [place] [address] Physician Head Inspector And Center Marker Urology 09/16/23 Aidee Valero PA-C [address] [place] [address] Assigned Musculoskeletal Provider 04/17/24 Tanisha Marlow 4120 [facility] [address] 03/30/24 documented as of this encounter
--- OUTSIDE RECORDS SUMMARY | 2024-09-19 23:04 | XMS_ITS | Encounter Summary ---
Author Organization [facility] Address [address] [place] [address]. [place] [address] Care Team Providers Care Supervisor Shipping Name Role Phone Carlos Joyner MD Unavailable [phone] Jadon Murray MD Unavailable [phone] Maru Villagomez RN Unavailable Unavailable Ang Slade MD Unavailable [phone] Carlos Joyner MD Unavailable [phone] Ang Slade MD Unavailable [phone] Lakshmi Wilhelm-C Unavailable [phone] Heladio Willoughby MD Primary Care Provider [phone] Heladio Willoughby MD Unavailable Alissa Perez PA-C Unavailable [phone] Lakshmi Wilhelm PA-C Unavailable [phone] Adiee Valero PA-C Unavailable [phone] Reason for Visit * Reason Onset Date Comments Forms 09/14/2024 Supplies Order Encounter Details Date Type Department Care Team (Late st Contact Info) Description 09/14/2024 Telephone [facility] [address] [place] [address] [place] [address] [place] [address] Forms (Supplies Order) Social History [...] Answer Date Recorded PHQ-2 Score 0 09/13/2024 [facility] [place] of Occupat ional Health - Occupational Stress [...] building, in an overnight halfway, or couch-surfing.) No 07/16/2024 Are you worried [...] - 2024 7:48 AM CDT Faxed to [facility]. Kasia Kang Lead Clam Bed Worker [facility] * Telephone Encounter - Heladio Willoughby MD - 2024 5:01 AM CDT Signed. Placed in outgoing box. [facility] * Telephone Encounter - Kasia Kang - 09/14/2024 3:24 PM CDT Placed in provider's basket for review and signature. Kasia Kang Lead Clam Bed Worker [facility] * Telephone Encounter - Eleno Valera - 09/14/2024 3:00 PM CDT Forms/Letter Request Type of form/letter: OTHER: [employer] Do we have the form/letter: Yes: front desk admin in basket Who is the form from? [employer] Where did/will the form come from? form was faxed in When is form/letter needed by: RUPA How would you like the form/letter returned: [phone] Patient Notified form requests are processed in 5-7 business days:No Could we send this information to you in MyChart or would you prefer to receive a phone call?: No preference Okay to leave a detailed message?: No at Other phone number: FAX: [phone] Eleno Valera Patient Wash Oil Pump Operator Helper [facility] [place] documented in this encounter Plan of Treatment Upcoming Encounters Date Type Department Care Team (Late st Contact Info) Description 09/20/2024 11:00 AM CDT Office Visit [facility] [address] [phone] Sugey Mccoy, NESTOR [address] [place], [place] [address] 09/27/2024 1:40 PM CDT Ancillary Procedure [address] [place] [phone] [place] [address] [place] [address] 09/28/2024 10:30 AM CDT Therapy Visit [facility] [address] [facility] [address] [place] [address] [place] [address] [place], [place] [phone] Daly Edmonds, OT 909 [place] [address] Scheduled Procedures Name Priority Associated Diagnoses Date/Ti me NEPHROLITHOTOMY, PERCUTANEOU S, USING HOLMIUM LASER Kidney stone documented as of this encounter Visit Diagnoses Not on filedocumented in this encounter Care Teams Supervisor Shipping Relationship Specialty Start [place] [address] [facility] [place], [place] [phone] PCP - General 03/05/23 Carlos Joyner MD [address] [place] [address] Urology 12/09/19 Jadon Murray MD [facility] 2530 [facility] 550 [place], [place] [phone] Referring Physician Pediatric Surgery 12/09/19 Maru Villagomez, RN Registered Nurse 12/10/19 Ang Slade MD [address] [facility] 394 [place], [place] 875[address] Urology 04/24/20 Carlos Joyner MD [address] [place] [address] 553805 Assigned Surgical Provider 12/24/20 Ang Slade MD [address] [facility] 394 [place], [place] 225725 Urology 12/18/22 Lakshmi Wilhelm PA-C [address] [place] [address] 775025 Physician Accreditation Coordinator Urology 02/03/23 [place] [address] [facility] [place] [address] Assigned PCP 02/06/23 Alissa Perez PA-C [address] [place] [address] 678765 Physician Accreditation Coordinator Surgery 09/04/23 Lakshmi Wilhelm PA-C 909 [place] [address] Physician Accreditation Coordinator Urology 09/16/23 Aidee Valero PA-C [address]09 [place] [address] Assigned Musculoskeletal Provider 04/17/24 Tanisha Marlow [facility]0 [facility] [address] 03/30/24 documented as of this encounter
--- OUTSIDE RECORDS SUMMARY | 2024-09-19 23:05 | XMS_ITS | Clinical Summary ---
Author Organization [facility] Address [address] [place] [address] Care Team Providers Care Full Stack Engineer Name Role Phone Carlos Joyner MD Unavailable [phone] Jadon Murray MD Unavailable [phone] Maru Villagomez RN Unavailable Unavailable Ang Slade MD Unavailable Carlos Joyner MD Unavailable [phone] Ang Slade MD Unavailable Lakshmi Wilhelm-C Unavailable Heladio Willoughby MD Primary Care Provider [phone] Heladio Willoughby MD Unavailable Alissa Perez PA-C Unavailable [phone] Lakshmi Wilhelm-C Unavailable Aidee Valero PA-C [...] Refill(s), Maintenance, other 03/13/20 Active Wound Dressings ([facility] ALGINATE 2X2) PADSIndications:Pr essure ulcer acquired in [facility] Externally apply 1 each topically [...] 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 (03/14/2020): Vertebra Absence Congenital Kyphosis (acquired) (postural) 08/04/2008 Overview (03/14/2020): Kyphosis Neurogenic bladder 07/22/2003 Overview (03/05/2023): LW Onset: [id number] ; Paralysis Bladder Neurogenic bowel 07/22/2003 Overview (03/14/2020): LW Onset: [id number] Paraplegia 07/22/2003 Overview (04/18/2023): 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 07/22/2003 Overview (03/14/2020): LW Onset: [id number] ; Short Stature 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/22/2003 Overview (07/23/2024): Complicated by hydrocephalus, s/p CELERY WRAPPER shunt; chiari type 2 malformation, syringomyelia, neurogenic bowel and bladder. At : [facility], aplasia cutis of scalp (pinpoint), R knee contracture, clubbed feet bilaterally, microcephaly, kyphosis. Specialist involved: Adult Spina Bifida Clinic - looking into locations/referrals Adult neurosurgery team - not needed until age 27 (currently following with Dr[facility] Rodgers of [facility]) Adult Urology team - Dr. Joyner of [facility] Adult Sleep Medicine - referral placed Adult Orthopaedics - [facility] Resolved Problems Problem Noted Date Diagnosed Date Resolved Date Acute kidney failure, unspecified 02/10/2020 03/05/2023 Ulcer, surgical 06/07/2011 07/22/2024 Encounters Date Type Department Care Team Description 09/15/2024 Travel 09/14/2024 Telephone [facility] [address] [place] [address] Heladio Willoughby MD Forms (Supplies Order) 09/13/2024 11:00 AM CDT Office Visit [facility] [address] [place] [address] Heladio Willoughby MD Screening for cervical cancer (Primary Dx); Horseshoe kidney with renal calculus; Encounter for IUD insertion; Thoracic spina bifida, unspecified hydrocephalus presence (H); Wheelchair dependence 09/13/2024 Travel 09/08/2024 Travel 09/07/2024 8:30 AM CDT Virtual Visit [facility] [address] [phone] Carlos Joyner MD Kidney stone (Primary Dx); Hypercalciuria 09/07/2024 PRE VISIT [facility] [address] [phone] Carlos Joyner MD Pre Visit Planning - Done 09/03/2024 9:32 AM CDT - 09/03/2024 11:59 PM CDT Hospital Encounter [facility] [address] [place] [address] Carlos Joyner MD Kidney stone Discharge Disposition: Home or Self Care 09/03/2024 Travel 08/26/2024 Telephone [facility] [address] [phone] Carlos Joyner MD 08/26/2024 MyC Medical Advice [facility] [address] [phone] Sarika Tomlinson 08/20/2024 MyC Medical Advice [facility] [address] [place] [address] Mercy Feliz RN 08/20/2024 Telephone [facility] [address] [place] [address] Heladio Willoughby MD Vaginal Problem 07/27/2024 Telephone [facility] [address] [phone] Carlos Joyner MD Prior Auth - Medication (COMPOUNDED NON-CONTROLLED SUBSTANCE (CMPD RX) - PHARMACY TO MIX COMPOUNDED MEDICATION--DENIED) 07/26/[address] [facility] Information Management [address] [place] [address] Scan, Non-Provider 07/23/2024 [facility] [address] [place] [phone] Heladio Willoughby MD 07/22/2024 [facility] [address] [place] [address] Heladio Willoughby MD IUD 07/22/2024 [facility] [address] [place] [address] Heladio Willoughby MD 07/22/2024 Telephone [facility] [address] [address] Rosita Velasco RN Clinic Care Coordination - Follow-up (Med request) 07/21/2024 4:00 PM GUEST SERVICE MANAGER Office Visit [facility] [address] [place] [address] Heladio Willoughby MD Encounter for Medicare annual wellness exam (Primary Dx); Cervical cancer screening; Thoracic spina bifida, unspecified hydrocephalus presence (H); Chiari malformation type II (H); Paraplegia (H); S/P CELERY WRAPPER shunt; Wheelchair dependence; Morbid obesity (H); Horseshoe kidney; Bilateral nephrolithiasis; Recurrent cystitis; Neurogenic bladder; Neurogenic bowel; control counseling 07/21/2024 Travel 07/16/2024 Travel 07/09/2024 MyC Medical Advice [facility] [address] [address] Hattie Wing RN 07/05/2024 Refill [facility] [address] [phone] Carlos Joyner MD Medication Refill 06/24/2024 Orders Only [facility] [address] [place] [address] Carlos Joyner MD Recurrent UTI (Primary Dx) 06/24/2024 Telephone [facility] [address] [place] [address] Carlos Joyner MD Call Back (Previous message from [employer]) 06/23/2024 MyC Medical Advice [facility] [address] [place] [address] Carlos Joyner MD 06/22/2024 Telephone [place] [id number] [place] [address] Heladio Willoughby MD Orders from Last 3 Months Immunizations Name Administration Dates Next Due DTAP (<7y) 01/18/2008,05/06/2005 DTaP, Unspecified 01/16/2015 DTaP/HepB/IPV 05/27/2003,03/21/2003,2002 Flu, Unspecified 02/26/2016,02/21/2009, 4 [id number] Novel Flu 03/18/2009 [id number] Novel Flu P-free 03/30/2004,05/27/2003 HIB (PRP-T) 05/27/2003,03/21/2003,2002 [...] than three times a week 07/16/2024 Attends [employer] Services Not on file 07/16 Active Member of Clubs or Organizations Not on f ile 07/16/2024 Attends Club or Organization Meetings Not on antelmo e 07/16/2024 Marital Status Not on file 07/16/2024 PHQ-2 Answer Date Recorded PHQ-2 Score 0 09/13/2024 [facility] [place] [facility] Occupat ional Health - Occupational Stress [...] Travel Start Travel End [place] 08/13/2024 08/19/2024 Last Filed Vital Signs Vital Sign Reading Time Taken Comments Blood Pressure 118/77 09/13/2024 11:15 AM CDT Pulse 75 09/13/2024 11:15 AM CDT Temperature 36.7 C (98.1 F) 09/13/2024 11:15 AM CDT Respiratory Rate 16 09/13/2024 11:15 AM CDT Oxygen Saturation 98% 09/13/2024 11:15 AM CDT Inhaled Oxygen Concentration - - Weight 61.2 kg (135 lb) 03/30/2024 2:01 PM GUEST SERVICE MANAGER Height 147.3 cm (4' 10) 03/30/2024 2:01 PM GUEST SERVICE MANAGER Body Mass Index 28.22 03/30/2024 2:01 PM GUEST SERVICE MANAGER Plan of Treatment Upcoming Encounters Date Type Department Care Team (Late st Contact Info) Description 09/20/2024 11:00 AM CDT Office Visit [facility] [address] [phone] Sugey Mccoy, LIVESTOCK NUTRITIONIST RADIO TELEVISION TECHNICAL DIRECTOR [address] [place] [address] [address] [place], [place] [address] 09/27/2024 1:40 PM CDT Ancillary Procedure [address] [place] [phone] [place] [address] [place], [place] [phone] 09/28/2024 10:30 AM CDT Therapy Visit [facility] [address] [place] [address] [place] [address] [place], [place] [phone] Daly Edmonds, OT [address] [place], [place] [address] Scheduled Procedures Name Priority Associated Diagnoses Date/Ti [...] history exists Medical Devices Implanted Type Area Car Hop Device Identifier Shelf Expiration Date Model / Serial / Lot Stent Ureteral Percuflex Plus [id number] - [id number] Implanted:Qty: 1 on 11/12/2021 by Carlos Joyner MD at [facility] Stent Right: Abdomen [employer] [id number] 12/26/2022 [id number] Ureteral Catheter 5 Bengali Implanted:Qty: 1 on 03/31/2023 by Elizabeth Jacobsen MD at [facility] Right: Ureter 02/02/2026 [id number] Description:5 irish Uretera l catheter used as a stent in right ureter 5 Bengali Open Ended Catheter Implanted:Qty: 1 on 03/31/2023 by Elizabeth Jacobsen MD at [facility] Left: Ureter 02/19/2026 [id number] / [id number] Explanted Type Area Car Hop Device Identifier Shelf Expiration Date Model / Serial / Lot Stent Ureteral Percuflex Plus [id number] - [id number] Implanted:Qty: 1 on 05/10/2021 by Carlos Joyner MD at [facility] Explanted:Qty: 1 on 08/09/2021 by Jane Gomez MD at [facility] Stent Right: Urethra [employer] 06/14/2022 [id number] Description:Ureter Stent Ureteral Percuflex Plus [id number] - [id number] Implanted:Qty: 1 on 05/10/2021 by Carlos Joyner MD at [facility] Explanted:Qty: 1 on 08/09/2021 by Jane Gomez MD at [facility] Stent Left: Urethra [employer] 07/25/2022 [id number] Stent Ureteral Percuflex Plus [id number] - [id number] Implanted:Qty: 1 on 08/09/2021 by Jane Gomez MD at [facility] Explanted:Qty: 1 on 11/12/2021 at [facility] Stent Right: Ureter [employer] 02/29/2024 [id number] Stent Ureteral Percuflex Plus [id number] - [id number] Implanted:Qty: 1 on 08/09/2021 by Jane Gomez MD at [facility] Explanted:Qty: 1 on 11/12/2021 at [facility] Stent Right: Ureter [employer] 02/29/2024 [id number] 5 Fr X 22cm Ureteral Stent Explanted:Qty: 1 on 02/07/2020 by Carlos Joyner MD at [facility] APARNA 5 Fr X 22cm Ureteral Stent Explanted:Qty: 1 on 02/07/2020 by Carlos Joyner MD at [facility] APARNA Procedures Procedure Name Priority Date/Time Associated [...] stone URINE CULTURE Routine 06/25/2024 9:14 AM GUEST SERVICE MANAGER Recurrent UTI URINE MICROSCOPIC EXAM Routine 06/25/2024 9:14 AM GUEST SERVICE MANAGER Recurrent UTI ROUTINE UA WITH MICROSCOPIC Routine 06/25/2024 9:14 AM GUEST SERVICE MANAGER Recurrent UTI from Last 3 Months Results [...] component of this testing was completed at [facility]. Stain controls for all stains resulted within this report have been reviewed and show appropriate reactivity. 2024 1:59 PM CDT [facility] Brushing ENDOCERVICAL STRUCTURE / Unknown Non-blood Collection / Unknown 09/13/2024 12:04 PM CDT 09/13/2024 12:07 PM CDT us Heladio Willoughby MD LAB - JOHN AP Final Result [facility] Specialty Lab [address] [facility], Room [address] [place] [phone] * (ABNORMAL) RBC and Platelet Morphology (09/13/2024 11:03 AM CDT) RBC Morphology Confirmed RBC Indices 09/13/2024 6:11 PM CDT [facility] Platelet Assessment Platelets Clumped(A) Automated Count Confirmed. Platelet morphology is normal. [facility] 09/13/2024 6:11 PM CDT [facility] Blood BLOOD SPECIMEN / Unknown Venipuncture / Unknown 09/13/2024 11:03 AM CDT 09/13/2024 11:03 AM CDT us Heladio Willoughby MD LAB - BLOOD ORDERABLES Final Res ult [facility] Acute Care Lab [address] Lab (1st floor, no room number) [place] [address], [facility] * CBC with platelets and differential (09/13/2024 11:03 AM CDT) [facility] Signature WBC Count 8.0 4.0 - 11.0 [...] - BLOOD ORDERABLES Final Res ult LABORATORY [facility] Acute Care Lab [address] Lab (1st floor, no room number) [place] [address], [facility] * Vitamin D Deficiency (09/13/2024 11:03 AM CDT) [facility] Vitamin D, Total (25-Hydroxy) 27 20 - 50 ng/mL 09/14/2024 8:50 AM CDT [facility] Comment:optimum levels Blood BLOOD SPECIMEN / Unknown Venipuncture / Unknown 09/13/2024 11:03 AM CDT 09/13/2024 11:03 AM CDT Narrative [facility] - 09/14/2024 8:50 AM CDT Season, race, dietary intake, and treatment affect the concentration of 29-xfuicxy-Hfdaxfb D. Values may decrease during winter months and increase during summer months. Vitamin D determination is routinely performed by an immunoassay specific for 25 hydroxyvitamin D3. If an individual is on vitamin D2(ergocalciferol) supplementation, please specify 25 OH vitamin D2 and D3 level determination by LCMSMS test VITD23. us Heladio Willoughby MD LAB - BLOOD ORDERABLES Final Res ult [facility] Core Lab [address] [facility], [address] [place] [address] * Lipid panel reflex to direct LDL Fasting (09/13/2024 11:03 AM CDT) [facility] Cholesterol 160 <200 mg/dL 09/14/2024 8:50 AM [...] ORDERABLES Final Res ult Performing Organization Address [facility] Co de Phone Number [facility] Core Lab [address] [facility], [address] [phone] * HCG qualitative (09/13/2024 11:03 AM CDT) hCG Serum Qualitative Negative Negative LINDA 09/13/2024 8:35 PM CDT [facility] Comment:This test is for scr eening purposes. Results should be interpreted along with the clinical picture. Confirmation testing is available if warranted by ordering [id number], HCG Quantitative . Blood BLOOD SPECIMEN / Unknown Venipuncture / Unknown 09/13/2024 11:03 AM CDT 09/13/2024 11:03 AM CDT Heladio Willoughby MD LAB - BLOOD ORDERABLES Final Res ult Performing Organization Address [facility] Co de Phone Number [facility] Core Lab [address] [facility], [address] * (ABNORMAL) Comprehensive metabolic panel (09/13/2024 11:03 AM CDT) Pathologist [facility] Sodium 141 135 - 145 mmol/L 09/14/2024 [...] BLOOD ORDERABLES Final Res ult [facility] Core Lab [address] [facility], [address] [place] [address], [facility] * CT Abdomen Pelvis w/o [...] EXAM: CT ABDOMEN PELVIS W/O CONTRAST LOCATION: [facility] DATE: 09/03/2024 INDICATION: Low dose [...] in the bladder presumably from prior instrumentation. CELERY WRAPPER shunt tubing in the pelvis. MUSCULOSKELETAL: Lumbosacral fusion. Muscular atrophy in the pelvis. 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 Procedure Note Vito Jimenez MD - 09/03/2024 EXAM: CT ABDOMEN PELVIS W/O CONTRAST LOCATION: [facility] DATE: 09/03/2024 INDICATION: Low dose [...] Gas in the bladder presumably from prior instrumentation.CELERY WRAPPER shunt tubing in the pelvis. MUSCULOSKELETAL: Lumbosacral fusion. Muscular atrophy in the pelvis.Chronic ossification lateral to the left hip. IMPRESSION: Multiple nonobstructing bilateral renal calculi in a horseshoekidney. The largest calculus is a staghorn type calculus on the leftmeasuring over 3 cm in greatest diameter. us Carlos Joyner MD IMG CT ORDERABLES Final Re sult * (ABNORMAL) UA with Microscopic (06/25/2024 9:14 AM [facility]) Color Urine Yellow Colorless, Straw, Light Yellow, Yellow 06/25/2024 9:19 AM [facility] Appearance Urine Cloudy(A) Clear 06/25/19 25 9:19 AM [facility] Glucose Urine Negative Negative mg/dL 06/25/2024 9:19 AM [facility] Bilirubin Urine Negative Negative 9:19 AM [facility] Ketones Urine Negative Negative mg/dL 06/25/2024 9:19 AM [facility] Specific [place] Urine 1.020 1.003 - 1.035 06/25/2024 9:19 AM [facility] Blood Urine Small(A) Negative 06/25/2024 9:19 AM [facility] pH Urine 6.0 5.0 - 7.0 06/25/2024 9:19 AM [facility] Protein Albumin Urine Negative Negative mg/dL 06/25/2024 9:19 AM [facility] Urobilinogen Urine 0.2 0.2, 1.0 E.U./dL 06/25/2024 9:19 AM [facility] Nitrite Urine Positive(A) Negative 06/25/2024 9:19 AM [facility] Leukocyte Esterase Urine Small(A) Negative 06/25/2024 9:19 AM [facility] Urine URINE SPECIMEN FROM URINARY CONDUIT / Unknown Non-blood Collection / Unknown 06/25/2024 9:14 AM GUEST SERVICE MANAGER 06/25/2024 9:15 AM GUEST SERVICE MANAGER Carlos Joyner MD LAB - URINE ORDERABLES Fin al Result LABORATORY [facility] [address] [facility] Lab (no room number, 1st floor of [facility]) [place] [address], [facility] * (ABNORMAL) Urine Microscopic Exam (06/25/2024 9:14 AM GUEST SERVICE MANAGER) Bacteria Urine Many(A) None Seen /HPF LINDA 06/25/2024 9:20 AM GUEST SERVICE MANAGER LABORATORY RBC Urine 2-5(A) 0-2 /HPF /HPF LINDA 06/25/2024 9:20 AM GUEST SERVICE MANAGER RM LABORATORY WBC Urine 10-25(A) 0-5 /HPF /HPF LINDA 06/25/2024 9:20 AM GUEST SERVICE MANAGER LABORATORY Amorphous Crystals Urine Few(A) None Seen /HPF LINDA 06/25/2024 9:20 AM GUEST SERVICE MANAGER RM LABORATORY Urine URINE SPECIMEN FROM URINARY CONDUIT / Unknown Non-blood Collection / Unknown 06/25/2024 9:14 AM GUEST SERVICE MANAGER 06/25/2024 9:15 AM GUEST SERVICE MANAGER Carlos Joyner MD LAB - URINE ORDERABLES Fin al Result Performing Organization Address City/[facility] de Phone Number LABORATORY [facility] [address] [facility] Lab (no room number, 1st floor of [facility]) [place] [address], [place] * (ABNORMAL) Urine Culture (06/25/2024 9:14 AM GUEST SERVICE MANAGER) Culture >100,000 CFU/mL Staphylococcus epidermidis(A) LINDA 06/28/2024 6:49 AM GUEST SERVICE MANAGER [facility] Culture 50,000-100,000 CFU/mL Staphylococcus epidermidis(A) 06/28/2024 6:49 AM GUEST SERVICE MANAGER [facility] Urine URINE SPECIMEN OBTAINED VIA INDWELLING URINARY CATHETER / Unknown Non-blood Collection / Unknown 06/25/2024 9:14 AM GUEST SERVICE MANAGER 06/25/2024 9:15 AM GUEST SERVICE MANAGER Narrative Organism Antibiotic Method Susceptibility Staphylococcus [...] [facility] Di[facility] Lab [address] [facility], [address] [place] [address], [facility] from Last 3 Months Insurance [place] [address] Advance Directives For more information, please contact: [phone] Documents on File Type Date Recorded Patient Flight Engineer Performance Qualified Expl anation Advance Directives and Living Will [...] continue PREVIOUSLY ORDERED code status Care Teams Full Stack Engineer Relationship Specialty Start [place] [address] [place] [address] PCP - General 03/05/23 Carlos Joyner MD [address] [place] [address] Urology 12/09/19 Jadon Murray MD [facility] [address] [address] Referring Physician Pediatric Surgery 12/09/19 Maru Villagomez, OTILIO Registered Nurse 12/10/19 Ang Slade MD [address] [place] [address] [id number] Urology 04/24/20 Carlos Joyner MD [address] [place] [address] 284855 Assigned Surgical Provider 12/24/20 Ang Slade MD [address] [place] [address] Urology 12/18/22 Lakshmi Wilhelm PA-C [address] [place] [address] Physician Sealing And Canceling Machine Operator Urology 02/03/23 [place] [address] [place] [address] Assigned PCP 02/06/23 Alissa Perez PA-C [address] [place] [address] [id number] Physician Sealing And Canceling Machine Operator Surgery 09/04/23 Lakshmi Wilhelm PA-C [address] [place] [address] [phone] Physician Sealing And Canceling Machine Operator Urology 09/16/23 Aidee Valero PA-C [address] [place] [address]955 Assigned Musculoskeletal Provider 04/17/24 Tanisha Marlow [address] [facility] [address] 03/30/24
--- OUTSIDE RECORDS SUMMARY | 2024-09-19 23:05 | XMS_ITS | Encounter Summary ---
Author Organization [place] Address [address] [place] [address] Care Team Providers Care Medical Staff Specialist Name Role Phone Carlos Joyner MD Unavailable [phone] Jadon Murray MD Unavailable [phone] Maru Villagomez RN Unavailable Unavailable Ignacia Duran MD Primary Care Provider [phone] Ang Slade MD Unavailable [phone] Carlos Joyner MD Unavailable +[phone] Annalise Orta PA-C Unavailable +[phone] Ang Slade MD Unavailable [phone] Lakshmi Wilhelm-C Unavailable [phone] Heladio Willoughby MD Primary Care Provider [phone] Heladio Willoughby MD Unavailable Alissa Perez PA-C Unavailable [phone] Lakshmi Wilhelm PA-C Unavailable [phone] Aidee Valero PA-C Unavailable +[phone] Encounter Details Date Type Department Care Team (Late st Contact Info) Description 11/07/2021 [facility] [address]th [place] [address] Analisa Palacio, RN Social History [...] Description 09/20/2024 11:00 AM CDT Office Visit [address] [phone] Sugey Mccoy APRN [address] [place], [place] 97[address] 09/27/2024 1:40 PM CDT Ancillary Procedure [address] [place] [phone] [place] [address] [place] [place], [place] 144[address] 09/28/2024 10:30 AM CDT Therapy Visit [facility] 2200 [facility] [address] [place] [address] [place] [address] [facility] [place] [address] Daly Edmonds, OT 909 [place] [address] Scheduled Procedures Name Priority Associated Diagnoses Date/Ti [...] as of this encounter Care Teams Medical Staff Specialist Relationship Specialty Start Date End Date Ignacia Duran MD PCP - General Pediatrics 01/20/20 03/04/23 [place] [address] [place] [address] PCP - General 03/05/23 Carlos Joyner MD [address] [place] [address] 319595 Urology 12/09/19 Jadon Murray MD [facility] 2530 [facility] 550 [place] [address] Referring Physician Pediatric Surgery 12/09/19 Maru Villagomez, RN Registered Nurse 12/10/19 Ang Slade MD 420 [facility] 394 [place], [place] 633055 Urology 04/24/20 Carlos Joyner MD [address] [place] [address] 394725 Assigned Surgical Provider 12/24/20 Annalise Orta PA-C 5200 [place] [address] Assigned Cancer Care Provider 05/13/21 11/01/22 Ang Slade MD [address] [place] [address] 102085 Urology 12/18/22 Lakshmi Wilhelm PA-C [address] [place] [address] 881385 Physician Installers Mechanical Urology 02/03/23 [place] [address] [place] [address] Assigned PCP 02/06/23 Alissa Perez PA-C [address] [place] [address] 851715 Physician Installers Mechanical Surgery 09/04/23 Lakshmi Wilhelm PA-C [address] [place] [address] 22129 Physician Installers Mechanical Urology 09/16/23 Aidee Valero PA-C [address] [place] [address]150 Assigned Musculoskeletal Provider 04/17/24 Tanisha Marlow 4120 [facility] [address] 03/30/24 documented as of this encounter
--- OUTSIDE RECORDS SUMMARY | 2024-09-19 23:05 | XMS_ITS | Encounter Summary ---
Author Organization [place] Address [address] [place] [address] 29888 Care Team Providers Care Linseed Oil Boiler Name Role Phone Carlos Joyner MD Unavailable [phone] Jadon Murray MD Unavailable [phone] Maru Villagomez RN Unavailable Unavailable Ignacia Duran MD Primary Care Provider [phone] Ang Slade MD Unavailable +[phone] Carlos Joyner MD Unavailable +[phone] Annalise Orta PA-C Unavailable [phone] Ang Slade MD Unavailable [phone] Lakshmi Wilhelm-C Unavailable [phone] Heladio Willoughby MD Primary Care Provider [phone] Heladio Willoughby MD Unavailable Alissa Perez PA-C Unavailable [phone] Lakshmi Wilhelm PA-C Unavailable [phone] Aidee Valero PA-C Unavailable [phone] Encounter Details Date Type Department Care Team (Late st Contact Info) Description 06/19/2021 [facility] [address] [address] Jenna Mcfadden, RN Social History [...] Travel Start Travel End [place] 08/13/2024 08/19/2024 COVID-19 Exposure Response Date Recorded In the last month, have you been in contact with someone who was confirmed or suspected to have Coronavirus / COVID-19? No / Unsure 06/19/2021 11:16 AM ORE FIELDER documented as of this encounter Plan of Treatment Upcoming Encounters Date Type Department Care Team (Late st Contact Info) Description 09/20/2024 11:00 AM CDT Office Visit [address] [phone] Sugey Mccoy APRN [facility] [address] [place] [address] 106 [place], [place] 538884 09/27/2024 1:40 PM CDT Ancillary Procedure [address] [place] [phone] [place] [address] [place] [address] 09/28/2024 10:30 AM CDT Therapy Visit [facility] 2200 [facility] [address] [place] [address] [place] [address] [place], [place] [phone] Daly Edmonds, OT 909 [place] [address] Scheduled Procedures Name Priority Associated Diagnoses Date/Ti [...] documented as of this encounter Care Teams Linseed Oil Boiler Relationship Specialty Start Date End Date Ignacia Duran MD PCP - General Pediatrics 01/20/20 03/04/23 [place] [address] [place] [address] PCP - General 03/05/23 Carlos Joyner MD [address] [place] [address] Urology 12/09/19 Jadon Murray MD [facility] [address] [address] Referring Physician Pediatric Surgery 12/09/19 Maru Villagomez, OTILIO Registered Nurse 12/10/19 Ang Slade MD [address] [place] [address] 948965 Urology 04/24/20 Carlos Joyner MD [address] [place] [address] 20874 Assigned Surgical Provider 12/24/20 Annalise Orta PA-C 5200 [place] [address] Assigned Cancer Care Provider 05/13/21 11/01/22 Ang Slade MD [address] [place] [address] Urology 12/18/22 Lakshmi Wilhelm PA-C [address] [place] [address] Physician Electrical Installer Urology 02/03/23 [place] [address] [place] [address] Assigned PCP 02/06/23 Alissa Perez PA-C [address] [place] [address] 16261 Physician Electrical Installer Surgery 09/04/23 Lakshmi Wilhelm PA-C [address] [place] [address] 41834 Physician Electrical Installer Urology 09/16/23 Aidee Valero PA-C [address] [place] [address] Assigned Musculoskeletal Provider 04/17/24 Tanisha Marlow 4120 [facility] [address] 03/30/24 documented as of this encounter
--- OUTSIDE RECORDS SUMMARY | 2024-09-19 23:05 | XMS_ITS | Encounter Summary ---
Author Organization [place] Address [address] [place] [address]84 Care Team Providers Care Psychiatric Assistant Name Role Phone Carlos Joyner MD Unavailable [phone] Jadon Murray MD Unavailable [phone] Maru Villagomez RN Unavailable Unavailable Ignacia Duran MD Primary Care Provider [phone] Ang Slade MD Unavailable [phone] Carlos Joyner MD Unavailable [phone] Annalise Orta-C Unavailable Ang Slade MD Unavailable Lakshmi Wilhelm-C Unavailable [phone] Heladio Willoughby MD Primary Care Provider Heladio Willoughby MD Unavailable Alissa Perez PA-C Unavailable [phone] Lakshmi Wilhelm-C Unavailable Aidee Valero PA-C Unavailable [phone] Encounter Details Date Type Department Care Team (Late st Contact Info) Description 10/12/2021 [facility] [address] 5th [place] [address] Tanisha Coe PA-C [address] [place] [address] Social History Tobacco Use Types Packs/Day [...] 09/20/2024 11:00 AM CDT Office Visit [address] [phone] Sugey Mccoy APRN W[employer] SPECIALIST [address] [place] [address] 335564 09/27/2024 1:40 PM CDT Ancillary Procedure [address] [place] [phone] [place] [address] [place], [place] 9712068 09/28/2024 10:30 AM CDT Therapy Visit [facility] Rehabilitation Services [facility] 2200 [facility] [address] [place] [address] [place] [address] [facility] [address] Daly Edmonds, OT [address] [place] [address] Scheduled Procedures Name Priority Associated Diagnoses Date/Ti [...] documented as of this encounter Care Teams Psychiatric Assistant Relationship Specialty Start Date End Date Ignacia Duran MD PCP - General Pediatrics 01/20/20 03/04/23 [place] [address] [place] [address] PCP - General 03/05/23 Carlos Joyner MD 909 [place] [address] Urology 12/09/19 Jadon Murray MD [facility] 2530 [facility] 550 [place] [address] Referring Physician Pediatric Surgery 12/09/19 Maru Villagomez, OTILIO Registered Nurse 12/10/19 Ang Slade MD 420 [facility] 394 [place] [address] Urology 04/24/20 Carlos Joyner MD [address] [place] [address] 8[address] Assigned Surgical Provider 12/24/20 Annalise Orta PA-C 5200 [place] [address] Assigned Cancer Care Provider 05/13/21 11/01/22 Ang Slade MD [address] [place] [address] Urology 12/18/22 Lakshmi Wilhelm PA-C [address] [place] [address]77 Physician Casket Assembler Metal Urology 02/03/23 [place] [address] [place] [address] Assigned PCP 02/06/23 Alissa Perez PA-C [address] [place] [address] 61782 Physician Casket Assembler Metal Surgery 09/04/23 Lakshmi Wilhelm PA-C [address] [place] [address] Physician Casket Assembler Metal Urology 09/16/23 Aidee Valero PA-C [address] [place] [address] Assigned Musculoskeletal Provider 04/17/24 Tanisha Marlow 4120 [facility] [address] 03/30/24 documented as of this encounter
--- OUTSIDE RECORDS SUMMARY | 2024-09-19 23:05 | XMS_ITS | Encounter Summary ---
Author Organization [place] Address [address] [place] [address] Care Team Providers Care Consulting Application Engineer Name Role Phone Carlos Joyner MD Unavailable [phone] Jadon Murray MD Unavailable [phone] Maru Villagomez RN Unavailable Unavailable Ang Slade MD Unavailable [phone] Carlos Joyner MD Unavailable [phone] Ang Slade MD Unavailable [phone] Lakshmi Wilhelm-C Unavailable [phone] Heladio Willoughby MD Primary Care Provider [phone] Heladio Willoughby MD Unavailable Alissa Perez PA-C Unavailable [phone] Lakshmi Wilhelm-C Unavailable [phone] Aidee Valero PA-C Unavailable [phone] Encounter Details Date Type Department Care Team (Late st Contact Info) Description 09/08/2023 [facility] Medical Advice [address] [address] Bhavna Ferris Social History Tobacco [...] Description 09/20/2024 11:00 AM CDT Office Visit [address] [address] Sugey Mccoy, INSPECTION MANAGER [facility]6 [address] [place] [address] [address] [place], [place] 693394 09/27/2024 1:40 PM CDT Ancillary Procedure [address] [place] [address] [place] [address] [place] [address] 09/28/2024 10:30 AM CDT Therapy Visit [facility] 2200 [facility] [address] [place], [place] [phone] [place] [address] [place] [address] Daly Edmonds, OT 909 [place], [place] 590425 Scheduled Procedures Name Priority Associated Diagnoses Date/Ti me NEPHROLITHOTOMY, PERCUTANEOU S, USING HOLMIUM LASER Kidney stone documented as of this encounter Visit Diagnoses Not on filedocumented in this encounter Care Teams Consulting Application Engineer Relationship Specialty Start [place] [address] [place] [address] PCP - General 03/05/23 Carlos Joyner MD [address] [place] [address] 481975 Urology 12/09/19 Jadon Murray MD [facility] 2530 [facility] 550 [place] [address] Referring Physician Pediatric Surgery 12/09/19 Maru Villagomez, RN Registered Nurse 12/10/19 Ang Slade MD [address] [place] [address] 394 [place], [place] 722955 Urology 04/24/20 Carlos Joyner MD [address] [place] [address] 549885 Assigned Surgical Provider 12/24/20 Ang Slade MD [address] [place] [address] 677485 Urology 12/18/22 Lakshmi Wilhelm PA-C [address] [place] [address] 821365 Physician Wafer Slicer Urology 02/03/23 [place] [address] [place] [address] Assigned PCP 02/06/23 Alissa Perez PA-C [address] [place] [address] Physician Wafer Slicer Surgery 09/04/23 Lakshmi Wilhelm PA-C [address] [place] [address] Physician Wafer Slicer Urology 09/16/23 Aidee Valero PA-C [address] [place] [address] 6[address] Assigned Musculoskeletal Provider 04/17/24 Tanisha Marlow 4120 [facility] [address] 03/30/24 documented as of this encounter
--- OUTSIDE RECORDS SUMMARY | 2024-09-19 23:05 | XMS_ITS | Encounter Summary ---
Author Organization [facility] Address [address] [place] [address] Care Team Providers Care Warper Creeler Name Role Phone Carlos Joyner MD Unavailable [phone] Jadon Murray MD Unavailable [phone] Maru Villagomez RN Unavailable Unavailable Ignacia Duran MD Primary Care Provider Ang Slade MD Unavailable +[phone] Carlos Joyner MD Unavailable +[phone] Annalise Orta PA-C Unavailable [phone] Ang Slade MD Unavailable Lakshmi Wilhelm-C Unavailable [phone] Heladio Willoughby MD Primary Care Provider Heladio Willoughby MD Unavailable Alissa Perez PA-C Unavailable [phone] Lakshmi Wilhelm PA-C Unavailable [phone] Aidee Valero PA-C Unavailable [phone] Reason for Visit * Reason Onset Date Comments Orders 01/01/2022 Syringes - 35 an d 60 ml requested Encounter Details Date Type Department Care Team (Late st Contact Info) Description 01/01/2022 Telephone [facility] [address] 4th [place] [address] Carlos Joyner MD [address] [place] [address] Orders (Syringes - 35 and 60 ml [...] than three times a week 07/16/2024 Attends Holiness Services Not on file 07/16 Active Member of Clubs or Organizations Not on f ile 07/16/2024 Attends Club or Organization Meetings Not on antelmo e 07/16/2024 Marital Status Not on file 07/16/2024 PHQ-2 Answer Date Recorded PHQ-2 Score Incomplete 07/21/2024 [facility] - Occupational [...] Start Travel End [place] 08/13/2024 08/19/2024 COVID-19 Exposure Response Date Recorded [...] Palacio, RN You; Sharon Mckeon CMA; Mohini iDego RN; Tani Olivares, EMT 3 days ago [...] order to [facility] at [phone]. Thank you. Action Taken: Other: Urology Travel Screening: Not Applicable documented in this encounter Plan of Treatment Upcoming Encounters Date Type Department Care Team (Late st Contact Info) Description 09/20/2024 11:00 AM CDT Office Visit [facility] [address] [phone] Sugey Mccoy APRN [facility] [address] [place] [address] [address] [place], [place] 168094 09/27/2024 1:40 PM CDT Ancillary Procedure [address] [place] [phone] [place] [address] [place], [place] 7247368 09/28/2024 10:30 AM CDT Therapy Visit [facility] [address] [facility] [address] [place] [address] [place] [address] [place], [place] 0382668 Daly Edmonds, OT 909 [place] [address] Scheduled Procedures Name Priority Associated Diagnoses Date/Ti [...] documented as of this encounter Care Teams Warper Creeler Relationship Specialty Start Date End Date Ignacia Duran MD PCP - General Pediatrics 01/20/20 03/04/23 [place] [address] [place] [address] PCP - General 03/05/23 Carlos Joyner MD 9 [place] [address] Urology 12/09/19 Jadon Murray MD [facility] 2530 [facility] 550 [place] [address] Referring Physician Pediatric Surgery 12/09/19 Maru Villagomez, RN Registered Nurse 12/10/19 Ang Slade MD [address] [address] Urology 04/24/20 Carlos Joyner MD [address] [place] [address] Assigned Surgical Provider 12/24/20 Annalise Orta PA-C 5[address] [facility] [place] [address] Assigned Cancer Care Provider 05/13/21 11/01/22 Ang Slade MD 420 [facility] 394 [place] [address] Urology 12/18/22 Lakshmi Wilhelm PA-C [address] [place] [address] 18333 Physician Appeals Specialist Urology 02/03/23 [place] [address] [place] [address] Assigned PCP 02/06/23 Alissa Perez PA-C [address] [place] [address] Physician Appeals Specialist Surgery 09/04/23 Lakshmi Wilhelm PA-C [address] [place] [address] Physician Appeals Specialist Urology 09/16/23 Aidee Valero PA-C [address] [place] [address] Assigned Musculoskeletal Provider 04/17/24 Tanisha Marlow 4120 [facility] [address] 03/30/24 documented as of this encounter
--- OUTSIDE RECORDS SUMMARY | 2024-09-19 23:05 | XMS_ITS | Encounter Summary ---
Author Organization [place] Address 2450 [facility] [place] [address] Care Team Providers Care Shut Off Worker Name Role Phone Carlos Joyner MD Unavailable [phone] Jadon Murray MD Unavailable [phone] Maru Villagomez RN Unavailable Unavailable Ang Slade MD Unavailable [phone] Carlos Joyner MD Unavailable +[phone] Ang Slade MD Unavailable [phone] Lakshmi Wilhelm PA-C Unavailable [phone] Heladio Willoughby MD Primary Care Provider [phone] Heladio Willoughby MD Unavailable Alissa Perez PA-C Unavailable [phone] Lakshmi Wilhelm PA-C Unavailable [phone] Aidee Valero PA-C Unavailable [phone] Encounter Details Date Type Department Care Team (Late st Contact Info) Description 03/27/2023 [facility] Medical Advice UR PREOP/PHASE II 2450 [place] [phone] Lisette Salinas RN Social History Tobacco Use [...] in an overnight assisted, or couch-surfing.) Yes 02/26/2023 Are you worried [...] Description 09/20/2024 11:00 AM CDT Office Visit [address] [address] Sugey Mccoy, NESTOR [address] [address] 09/27/2024 1:40 PM CDT Ancillary Procedure [address] 100 [place] [phone] [place] [address] [place] [address] 09/28/2024 10:30 AM CDT Therapy Visit [facility] [address] [place] [address] [address] [place], [place] [phone] [place] [address] [place] [address] Daly Edmonds, OT 909 [place], [place] 239965 Scheduled Procedures Name Priority Associated Diagnoses Date/Ti me NEPHROLITHOTOMY, PERCUTANEOU S, USING HOLMIUM LASER Kidney stone documented as of this encounter Visit Diagnoses Not on filedocumented in this encounter Care Teams Shut Off Worker Relationship Specialty Start [place] [address] [place] [address] PCP - General 03/05/23 Carlos Joyner MD [address] [place] [address] Urology 12/09/19 Jadon Murray MD [facility] 2530 [facility] 550 [place] [address] Referring Physician Pediatric Surgery 12/09/19 Maru Villagomez, OTILIO Registered Nurse 12/10/19 Ang Slade MD [address] [place] [address] 394 [place] [address] Urology 04/24/20 Carlos Joyner MD [address] [place] [address] Assigned Surgical Provider 12/24/20 Ang Slade MD [address] [place] [address] Urology 12/18/22 Lakshmi Wilhelm PA-C [address] [place] [address] 28421 Physician Sap Trainer Urology 02/03/23 [place] [address] [place] [address] Assigned PCP 02/06/23 Alissa Perez PA-C [address] [place] [address] Physician Sap Trainer Surgery 09/04/23 Lakshmi Wilhelm PA-C [address] [place] [address] Physician Sap Trainer Urology 09/16/23 Aidee Valero PA-C [address] [place] [address]127 Assigned Musculoskeletal Provider 04/17/24 Tanisha Marlow 4120 [facility] [address] 03/30/24 documented as of this encounter
--- OUTSIDE RECORDS SUMMARY | 2024-09-19 23:05 | XMS_ITS | Encounter Summary ---
Author Organization [place] Address [address] [place] [address] Care Team Providers Care Credit Reporting Clerk Name Role Phone Carlos Joyner MD Unavailable [phone] Jadon Murray MD Unavailable [phone] Maru Villagomez RN Unavailable Unavailable Ang Slade MD Unavailable [phone] Carlos Joyner MD Unavailable [phone] Ang Slade MD Unavailable [phone] Lakshmi Wilhelm PA-C Unavailable Heladio Willoughby MD Primary Care Provider [phone] Heladio Willoughby MD Unavailable Alissa Perez PA-C Unavailable [phone] Lakshmi Wilhelm PA-C Unavailable [phone] Aidee Valero PA-C Unavailable [phone] Encounter Details Date Type Department Care Team (Late st Contact Info) Description 09/18/2023 [facility] [address] [place] [address] Carlos Joyner MD [address] [place] [address] Social History Tobacco Use Types Packs/Day [...] Description 09/20/2024 11:00 AM CDT Office Visit [address] [address] Sugey Mccoy, STEREO EQUIPMENT INSTALLER [address] [address] 09/27/2024 1:40 PM CDT Ancillary Procedure [address] [place] [address] [place] [address] [place] [address] 09/28/2024 10:30 AM CDT Therapy Visit [facility] 2200 [facility] [address] [place] [address] [place] [address] [place] [address] Daly Edmonds, OT 909 [place], [place] 972895 Scheduled Procedures Name Priority Associated Diagnoses Date/Ti me NEPHROLITHOTOMY, PERCUTANEOU S, USING HOLMIUM LASER Kidney stone documented as of this encounter Visit Diagnoses Not on filedocumented in this encounter Care Teams Credit Reporting Clerk Relationship Specialty Start [place] [address] [place] [address] PCP - General 03/05/23 Carlos Joyner MD [address] [place] [address] 785755 Urology 12/09/19 Jadon Murray MD [facility] 2530 [facility] 550 [place] [address] Referring Physician Pediatric Surgery 12/09/19 Maru Villagomez, OTILIO Registered Nurse 12/10/19 Ang Slade MD [address] [place] [address] 394 [place], [place] 599335 Urology 04/24/20 Carlos Joyner MD [address] [place] [address] 178985 Assigned Surgical Provider 12/24/20 Ang Slade MD [address] [place] [address] 961445 MD Urology 12/18/22 Lakshmi Wilhelm PA-C [address] [place] [address] Physician Anthropology Faculty Member Urology 02/03/23 [place] [address] [place] [address] Assigned PCP 02/06/23 Alissa Perez PA-C [address] [place] [address] 725305 Physician Anthropology Faculty Member Surgery 09/04/23 Lakshmi Wilhelm PA-C [address] [place] [address] 680385 Physician Anthropology Faculty Member Urology 09/16/23 Aidee Valero PA-C [address] [place] [address] 317195 Assigned Musculoskeletal Provider 04/17/24 Tanisha Marlow 4120 [facility] [address] 03/30/24 documented as of this encounter
--- OUTSIDE RECORDS SUMMARY | 2024-09-19 23:05 | XMS_ITS | Encounter Summary ---
Author Organization [facility] Address [address] [place] [address]252 Care Team Providers Care Home Health Care Worker Name Role Phone Carlos Joyner MD Unavailable [phone] Jadon Murray MD Unavailable [phone] Maru Villagomez RN Unavailable Unavailable Ignacia Duran MD Primary Care Provider [phone] Carlos Joyner MD Unavailable +[phone] Ang Slade MD Unavailable [phone] Ang Slade MD Unavailable [phone] Carlos Joyner MD Unavailable [phone] Annalise Orta-C Unavailable [phone] Ang Slade MD Unavailable [phone] Lakshmi Wilhelm-C Unavailable [phone] Heladio Willoughby MD Primary Care Provider [phone] Heladio Willoughby MD Unavailable Alissa Perez PA-C Unavailable [phone] Lakshmi Wilhelm-C Unavailable +[phone] Aidee Valero PA-C Unavailable +[phone] Reason for Visit * Reason Comments Orders Encounter Details Date Type Department Care Team (Late st Contact Info) Description 02/02/2020 Orders Only [facility] [address] [phone] Maru Villagomez, RN Social History Tobacco Use [...] Description 09/20/2024 11:00 AM CDT Office Visit [address] [phone] Sugey Mccoy, DOOR [facility] [address] [place] [address] [address] [place] [address] 09/27/2024 1:40 PM CDT Ancillary Procedure [address] [place] [phone] [place] [address] [place] 4583468 09/28/2024 10:30 AM CDT Therapy Visit [facility] Services [facility] 2200 [facility] [address] [place], [place] [phone] [place] [address] [place] [phone] Daly Edmonds, OT 909 [place] [address] Scheduled Procedures Name Priority Associated Diagnoses Date/Ti [...] documented as of this encounter Care Teams Home Health Care Worker Relationship Specialty Start Date End Date Ignacia Duran MD PCP - General Pediatrics 01/20/20 03/04/23 [place] [address] [place] [address] PCP - General 03/05/23 Carlos Joyner MD [address] [place] [address] 59661 Urology 12/09/19 Jadon Murray MD [facility] [address] [address] Referring Physician Pediatric Surgery 12/09/19 Maru Villagomez, RN Registered Nurse 12/10/19 Carlos Joyner MD [address] [place] [address] 60650 Assigned Surgical Provider 03/17/20 Ang Slade MD [address] [place] [address] 336915 Urology 04/24/20 Ang Slade MD 420 [facility] [address] [place] [address] 12010 Assigned Surgical Provider 08/13/20 Carlos Joyner MD [address] [place] [address] 90888 Assigned Surgical Provider 12/24/20 Annalise Orta PA-C 5200 [place] [address] Assigned Cancer Care Provider 05/13/21 11/01/22 Ang Slade MD [address] [place] [address] 52135 MD Urology 12/18/22 Lakshmi Wilhelm PA-C [address] [place] [address] 20808 Physician Bobbin Drier Urology 02/03/23 [place] [address] [place] [address] Assigned PCP 02/06/23 Alissa Perez PA-C [address] [place] [address] 684535 Physician Bobbin Drier Surgery 09/04/23 Lakshmi Wilhelm PA-C [address] [place] [address] 365115 Physician Bobbin Drier Urology 09/16/23 Aidee Valero PA-C [address] [place] [address] 002285 Assigned Musculoskeletal Provider 04/17/24 Tanisha Marlow 4120 [facility] [address] 03/30/24 documented as of this encounter
--- OUTSIDE RECORDS SUMMARY | 2024-09-19 23:05 | XMS_ITS | Encounter Summary ---
Author Organization [facility] Address [address] [place] [address] 74471 Care Team Providers Care Electric Razor Mechanic Name Role Phone Carlos Joyner MD Unavailable [phone] Jadon Murray MD Unavailable [phone] Maru Villagomez RN Unavailable Unavailable Ignacia Duran MD Primary Care Provider Ang Slade MD Unavailable +[phone] Carlos Joyner MD Unavailable +[phone] Annalise Orta PA-C Unavailable +[phone] Ang Slade MD Unavailable [phone] Lakshmi Wilhelm-C Unavailable [phone] Heladio Willoughby MD Primary Care Provider [phone] Heladio Willoughby MD Unavailable Alissa Perez PA-C Unavailable [phone] Lakshmi Wilhelm PA-C Unavailable [phone] Aidee Valero PA-C Unavailable [phone] Encounter Details Date Type Department Care Team (Late st Contact Info) Description 04/16/2021 [facility] [address] [place] [address] Berna Britton Social History Tobacco [...] 09/20/2024 11:00 AM CDT Office Visit [address] [phone] Sugey Mccoy, ASSISTANT DEAN [address] [place], [place] [address] 09/27/2024 1:40 PM CDT Ancillary Procedure [address] [place] [phone] [place] [address] [place] [address] 09/28/2024 10:30 AM CDT Therapy Visit [facility] Rehabilitation Services [facility] 2200 [facility] [address] [place] [address] [place] [address] [place], [place] 1744168 Daly Edmonds, OT [address] [place] [address]34 Scheduled Procedures Name Priority Associated Diagnoses Date/Ti [...] as of this encounter Care Teams Electric Razor Mechanic Relationship Specialty Start Date End Date Ignacia Duran MD PCP - General Pediatrics 01/20/20 03/04/23 [place] [address] [facility] [place] [address] PCP - General 03/05/23 Carlos Joyner MD 9 [place] [address] Urology 12/09/19 Jadon Murray MD [facility] 2530 [facility] 550 [place] [address] Referring Physician Pediatric Surgery 12/09/19 Maru Villagomez, RN Registered Nurse 12/10/19 Ang Slade MD [address] [place] [address] 255145 Urology 04/24/20 Carlos Joyner MD [address] [place] [address] 66796 Assigned Surgical Provider 12/24/20 Annalise Orta PA-C 5200 [place] [address] Assigned Cancer Care Provider 05/13/21 11/01/22 Ang Slade MD [address] [address] Urology 12/18/22 Lakshmi Wilhelm PA-C [address] [place] [address] 49960 Physician Can Intake Worker Urology 02/03/23 [place] [address] [place] [address] Assigned PCP 02/06/23 Alissa Perez PA-C [address] [place] [address] 91666 Physician Can Intake Worker Surgery 09/04/23 Lakshmi Wilhelm PA-C [address] [place] [address] Physician Can Intake Worker Urology 09/16/23 Aidee Valero PA-C [address] [place] [address] 59797 Assigned Musculoskeletal Provider 04/17/24 Tanisha Marlow 4120 [facility] [address] 03/30/24 documented as of this encounter
--- OUTSIDE RECORDS SUMMARY | 2024-09-19 23:05 | XMS_ITS | Encounter Summary ---
Author Organization [facility] Address [address] [place] [address]34 Care Team Providers Care Milking Machine Mechanic Name Role Phone Carlos Joyner MD Unavailable [phone] Jadon Murray MD Unavailable [phone] Maru Villagomez RN Unavailable Unavailable Ignacia Duran MD Primary Care Provider Ang Slade MD Unavailable Carlos Joyner MD Unavailable [phone] Annalise Orta PA-C Unavailable Ang Slade MD Unavailable Lakshmi Wilhelm-C Unavailable Heladio Willoughby MD Primary Care Provider Heladio Willoughby MD Unavailable Alissa Perez PA-C Unavailable [phone] Lakshmi Wilhelm PA-C Unavailable [phone] Aidee Valero PA-C Unavailable Encounter Details Date Type Department Care Team (Late st Contact Info) Description 10/01/2021 [facility] Clinic [address] [place] [address] Carlos Joyner MD [address] [place] [address] Social History Tobacco Use Types Packs/Day [...] file Travel History Travel Start Travel End [place] 08/13/2024 08/19/2024 documented as of this encounter Plan of Treatment Upcoming Encounters Date Type Department Care Team (Late st Contact Info) Description 09/20/2024 11:00 AM CDT Office Visit [address] [phone] Sugey Mccoy, [facility] [address] [place] [address] 795864 09/27/2024 1:40 PM CDT Ancillary Procedure [address] [place] [phone] [place] [address] [place], [place] 9083268 09/28/2024 10:30 AM CDT Therapy Visit [facility] Rehabilitation Services [facility] 2200 [facility] [address] [place], [place] [phone] [place] [address] [place], [place] [phone] Daly Edmonds, OT 909 [place], [place] 586[address] Scheduled Procedures Name Priority Associated Diagnoses Date/Ti [...] documented as of this encounter Care Teams Milking Machine Mechanic Relationship Specialty Start Date End Date Ignacia Duran MD PCP - General Pediatrics 01/20/20 03/04/23 [place] [address] [place] [address] PCP - General 03/05/23 Carlos Joyner MD [address] [place] [address]85 Urology 12/09/19 Jadon Murray MD [facility] [address] [address] Referring Physician Pediatric Surgery 12/09/19 Maru Villagomez, OTILIO Registered Nurse 12/10/19 Ang Slade MD 420 [facility] 394 [place] [address] Urology 04/24/20 Carlos Joyner MD [address] [place] [address] 18852 Assigned Surgical Provider 12/24/20 Annalise Orta PA-C 5200 [place] [address] Assigned Cancer Care Provider 05/13/21 11/01/22 Ang Slade MD [address] [place] [address] Urology 12/18/22 Lakshmi Wilhelm PA-C [address] [place] [address]96 Physician Business Resiliency Manager Urology 02/03/23 [place] [address] [place] [address] Assigned PCP 02/06/23 Alissa Perez PA-C [address] [place] [address] 24199 Physician Business Resiliency Manager Surgery 09/04/23 Lakshmi Wilhelm PA-C [address] [place] [address] 66785 Physician Business Resiliency Manager Urology 09/16/23 Aidee Valero PA-C [address] [place] [address] 78186 Assigned Musculoskeletal Provider 04/17/24 Tanisha Marlow 4120 [facility] [address] 03/30/24 documented as of this encounter
--- OUTSIDE RECORDS SUMMARY | 2024-09-19 23:05 | XMS_ITS | Encounter Summary ---
Author Organization [facility] Address [address] [place] [address] Care Team Providers Care Clinical Support Specialist Name Role Phone Carlos Joyner MD Unavailable [phone] Jadon Murray MD Unavailable [phone] Maru Villagomez RN Unavailable Unavailable Ignacia Duran MD Primary Care Provider Ang Slade MD Unavailable [phone] Carlos Joyner MD Unavailable [phone] Annalise Orta PA-C Unavailable [phone] Ang Slade MD Unavailable [phone] Lakshmi Wilhelm-C Unavailable [phone] Heladio Willoughby MD Primary Care Provider [phone] Heladio Willoughby MD Unavailable Alissa Perez PA-C Unavailable [phone] Lakshmi Wilhelm PA-C Unavailable [phone] Aidee Valero PA-C Unavailable [phone] Encounter Details Date Type Department Care Team (Late st Contact Info) Description 11/14/2021 [facility] Clinic [address] [place] [address] Analisa Palacio, RN Social History [...] 09/20/2024 11:00 AM CDT Office Visit [address] [phone] Sugey Mccoy APRN [address] 106 [place], [place] 09[address] 09/27/2024 1:40 PM CDT Ancillary Procedure [address] [place] [phone] [place] [address] [place] 5549368 09/28/2024 10:30 AM CDT Therapy Visit [facility] Rehabilitation Services [facility] 2200 [facility] [address] [place] [address] [place] [address] [facility] [address] Daly Edmonds, OT 909 [place] [address] Scheduled Procedures Name Priority Associated Diagnoses Date/Ti [...] documented as of this encounter Care Teams Clinical Support Specialist Relationship Specialty Start Date End Date Ignacia Duran MD PCP - General Pediatrics 01/20/20 03/04/23 [place] [address] [place] [address] PCP - General 03/05/23 Carlos Joyner MD [address] [place] [address] 983605 Urology 12/09/19 Jadon Murray MD [facility] 2530 [facility] 550 [place] [address] Referring Physician Pediatric Surgery 12/09/19 Maru Villagomez, RN Registered Nurse 12/10/19 Ang Slade MD 420 [facility] 394 [place], [place] 916705 Urology 04/24/20 Carlos Joyner MD [address] [place] [address] 252455 Assigned Surgical Provider 12/24/20 Annalise Orta PA-C 5200 [place] [address] Assigned Cancer Care Provider 05/13/21 11/01/22 Ang Slade MD [address] [place] [address] 753145 Urology 12/18/22 Lakshmi Wilhelm PA-C [address] [place] [address] 538675 Physician Laborer Cheesemaking Urology 02/03/23 [place] [address] [place] [address] Assigned PCP 02/06/23 Alissa Perez PA-C [address] [place] [address] 573205 Physician Laborer Cheesemaking Surgery 09/04/23 Lakshmi Wilhelm PA-C [address] [place] [address] 96907 Physician Laborer Cheesemaking Urology 09/16/23 Aidee Valero PA-C [address] [place] [address] 65190 Assigned Musculoskeletal Provider 04/17/24 Tanisha Marlow 4120 [facility] [address] 03/30/24 documented as of this encounter
--- OUTSIDE RECORDS SUMMARY | 2024-09-19 23:05 | XMS_ITS | Encounter Summary ---
Author Organization [place] Address [address] [place] [address]. [place] [address] Care Team Providers Care Coffee Sommelier Name Role Phone Carlos Joyner MD Unavailable [phone] Jadon Murray MD Unavailable [phone] Maru Villagomez RN Unavailable Unavailable Ang Slade MD Unavailable [phone] Carlos Joyner MD Unavailable +[phone] Ang Slade MD Unavailable [phone] Lakshmi Wilhelm PA-C Unavailable [phone] Heladio Willoughby MD Primary Care Provider [phone] Heladio Willoughby MD Unavailable Alissa Perez PA-C Unavailable [phone] Lakshmi Wilhelm PA-C Unavailable [phone] Aidee Valero PA-C Unavailable [phone] Encounter Details Date Type Department Care Team (Late st Contact Info) Description 04/08/2023 [facility] Medical Advice [facility] Urology Clinic [address] 4th [place] [address] Rosita Velasco, RN Social History [...] an overnight nursing home, or couch-surfing.) Yes 04/11/2023 Are you [...] 09/20/2024 11:00 AM CDT Office Visit [address] [address] Sugey Mccoy, STATION MASTER [facility] [address] [place] [address] [place] [address] 913414 09/27/2024 1:40 PM CDT Ancillary Procedure [address] [place] [address] [place] [address] [place] [address] 09/28/2024 10:30 AM CDT Therapy Visit [facility] 2200 [facility] [address] [place], [place] [phone] [place] [address] [place] [address] Daly Edmonds, OT 909 [place], [place] 211965 Scheduled Procedures Name Priority Associated Diagnoses Date/Ti me NEPHROLITHOTOMY, PERCUTANEOU S, USING HOLMIUM LASER Kidney stone documented as of this encounter Visit Diagnoses Not on filedocumented in this encounter Care Teams Coffee Sommelier Relationship Specialty Start [place] [address] [place] [address] PCP - General 03/05/23 Carlos Joyner MD [address] [place] [address] 051465 Urology 12/09/19 Jadon Murray MD [facility] 2530 [facility] 550 [place] [address] Referring Physician Pediatric Surgery 12/09/19 Maru Villagomez, RN Registered Nurse 12/10/19 Ang Slade MD [address] [place] [address] 394 [place], [place] 890325 Urology 04/24/20 Carlos Joyner MD [address] [place] [address] 976385 Assigned Surgical Provider 12/24/20 Ang Slade MD [address] [place] [address] 453925 Urology 12/18/22 Lakshmi Wilhelm PA-C [address] [place] [address] 242775 Physician Atmospheric Technician Urology 02/03/23 [place] [address] [place] [address] Assigned PCP 02/06/23 Alissa Perez PA-C [address] [place] [address] Physician Atmospheric Technician Surgery 09/04/23 Lakshmi Wilhelm PA-C [address] [place] [address] Physician Atmospheric Technician Urology 09/16/23 Aidee Valero PA-C [address] [place] [address] 33476 Assigned Musculoskeletal Provider 04/17/24 Tanisha Marlow 4120 [facility] [address] 03/30/24 documented as of this encounter
--- OUTSIDE RECORDS SUMMARY | 2024-09-19 23:05 | XMS_ITS | Patient Health Record ---
Author Organization [facility] Address [facility] [address] [place] [address] Care Team Providers Care Guest Relations Executive Name Role Phone Ignacia Duran MD Primary Care Provider [phone] ADOLFO PAZ MD Reason For Referral No Information Medications Medication SIG (Take, Route, Fr equency, Duration) Notes Start Date End Date Status Gentamicin Sulfate 40 MG/ML 30ML QHS Intravesically BID for 30 days 12/30/2019 Active Problems Problem Type SNOMED Code ICD Code Onset Dates Problem Status W/U Status Risk Notes Problem 366784510 Neurogenic bladd er (N31.9) Active confirmed Problem Hydrocephalus (764779540) Hydrocephalus (G91.9) Active confirmed Problem 61262101 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 Problem 112173670 Acute pyonephros is (N13.6) Active confirmed Problem 644423745 Obesity (BMI 30-39.9) (E66.9) Active confirmed Problem 49577465 Spina bifida of lumbosacral region with 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) Active confirmed Problem 79475857 Acute pyelonephritis (N10) Active confirmed Problem Sepsis (65573364) Sepsis, due to unspecified organism (A41.9) Active confirmed Problem 42612237 Bilateral nephrolithiasis (N20.0) Active confirmed Plan Of Treatment Pending Test Test Name Order Date UDS- Flow, ru, EMG, CMG w/UA/UC and mario tion 12/02/2019 Insurance Providers Payer Name Payer Address Payer Phone Subscriber Number Group Number Insured Name Patient Relationship to Insured Coverage Start Date Coverage End Date [facility] [employer] [address] [address] [place] [phone] [id number] Fe Escudero Child - Insured has Financial Responsibility [employer] [address] [address] [place] [address] [id number] Laina Escudero Self - patient is the insured
--- OUTSIDE RECORDS SUMMARY | 2024-09-19 23:05 | XMS_ITS | Encounter Summary ---
Author Organization [facility] Address [address] [place] [address] Care Team Providers Care Underwriting Analyst Name Role Phone Carlos Joyner MD Unavailable [phone] Jadon Murray MD Unavailable [phone] Maru Villagomez RN Unavailable Unavailable Ignacia Duran MD Primary Care Provider Ang Slade MD Unavailable [phone] Carlos Joyner MD Unavailable +[phone] Annalise Orta PA-C Unavailable [phone] Ang Slade MD Unavailable [phone] Lakshmi Wilhelm-C Unavailable [phone] Heladio Willoughby MD Primary Care Provider [phone] Heladio Willoughby MD Unavailable Alissa Perez PA-C Unavailable [phone] Lakshmi Wilhelm PA-C Unavailable [phone] Aidee Valero PA-C Unavailable [phone] Encounter Details Date Type Department Care Team (Late st Contact Info) Description 10/02/2021 [facility] U[facility] Clinic [address] [place] [address] Analisa Palacio, RN Social History [...] 09/20/2024 11:00 AM CDT Office Visit [address] [phone] Sugey Mccoy, VULCANIZING MACHINE OPERATOR [facility] [address] [place] [address] [place] [address] 09/27/2024 1:40 PM CDT Ancillary Procedure [address] [place] [phone] [place] [address] [facility] [place], [place] 38865[address] 09/28/2024 10:30 AM CDT Therapy Visit [facility] Rehabilitation Services [facility] 2200 [facility] [address] [place] [address] [place] [address] [facility] [place] [address] Daly Edmonds, OT 909 [place] [address] Scheduled Procedures Name Priority Associated Diagnoses Date/Ti [...] documented as of this encounter Care Teams Underwriting Analyst Relationship Specialty Start Date End Date Ignacia Duran MD PCP - General Pediatrics 01/20/20 03/04/23 [place] [address] [place] [address] PCP - General 03/05/23 Carlos Joyner MD [address] [place] [address] 432225 Urology 12/09/19 Jadon Murray MD [facility] [address] [facility] 550 [place], [place] [phone] Referring Physician Pediatric Surgery 12/09/19 Maru Villagomez RN Registered Nurse 12/10/19 Ang Slade MD [address] [place] [address] 394 [place], [place] 255205 Urology 04/24/20 Carlos Joyner MD [address] [place] [address] 704765 Assigned Surgical Provider 12/24/20 Annalise Orta PA-C 5200 [place] [address] Assigned Cancer Care Provider 05/13/21 11/01/22 Ang Slade MD [address] [place] [address] [id number] Urology 12/18/22 Lakshmi Wilhelm PA-C [address] [place] [address] 570785 Physician Director University Urology 02/03/23 [place] [address] [place] [address] Assigned PCP 02/06/23 Alissa Perez PA-C [address] [place] [address] 071245 Physician Director University Surgery 09/04/23 Lakshmi Wilhelm PA-C [address] [place] [address] 459395 Physician Director University Urology 09/16/23 Aidee Valero PA-C [address] [place] [address] 847215 Assigned Musculoskeletal Provider 04/17/24 Tanisha Marlow 4120 [facility] [address] 03/30/24 documented as of this encounter
--- OUTSIDE RECORDS SUMMARY | 2024-09-19 23:05 | XMS_ITS | Encounter Summary ---
Author Organization [place] Address [address] [place] [address]. [place] [address] Care Team Providers Care Corporate Accountant Name Role Phone Carlos Joyner MD Unavailable [phone] Jadon Murray MD Unavailable [phone] Maru Villagomez RN Unavailable Unavailable Ang Slade MD Unavailable [phone] Carlos Joyner MD Unavailable [phone] Ang Slade MD Unavailable [phone] Lakshmi Wilhelm PA-C Unavailable [phone] Heladio Willoughby MD Primary Care Provider [phone] Heladio Willoughby MD Unavailable Alissa Perez PA-C Unavailable [phone] Lakshmi Wilhelm-C Unavailable [phone] Aidee Valero PA-C Unavailable [phone] Encounter Details Date Type Department Care Team (Late st Contact Info) Description 07/09/2024 [facility] [address] [place] [address] Hattie Wing, RN Social History [...] Description 09/20/2024 11:00 AM CDT Office Visit [address] [address] Sugey Mccoy, TIN CAN LABORER [facility] [address] [place] [address] [place] [address] 136984 09/27/2024 1:40 PM CDT Ancillary Procedure [address] [place] [address] [place] [address] [place] [address] 09/28/2024 10:30 AM CDT Therapy Visit [facility] [address] [facility] [address] [place], [place] [phone] [place] [address] [place] [address] Daly Edmonds, OT 909 [place], [place] 9[address] Scheduled Procedures Name Priority Associated Diagnoses Date/Ti me NEPHROLITHOTOMY, PERCUTANEOU S, USING HOLMIUM LASER Kidney stone documented as of this encounter Visit Diagnoses Not on filedocumented in this encounter Care Teams Corporate Accountant Relationship Specialty Start [place] [address] [place] [address] PCP - General 03/05/23 Carlos Joyner MD [address] [place] [address] Urology 12/09/19 Jadon Murray MD [facility] [address] [facility] [address] 550 [place] [address] Referring Physician Pediatric Surgery 12/09/19 Maru Villagomez, RN Registered Nurse 12/10/19 Ang Slade MD [address] [place] [address] 394 [place], [place] 482935 Urology 04/24/20 Carlos Joyner MD [address] [place] [address] Assigned Surgical Provider 12/24/20 Ang Slade MD [address] [place] [address] 079875 Urology 12/18/22 Lakshmi Wilhelm PA-C [address] [place] [address] Physician Supervisor [facility] 02/03/23 [place] [address] [place] [address] Assigned PCP 02/06/23 Alissa Perez PA-C [address] [place] [address] Physician Supervisor [place] Surgery 09/04/23 Lakshmi Wilhelm PA-C [address] [place] [address] Physician Supervisor [place] U[facility] 09/16/23 Aidee Valero PA-C [address] [place] [address] Assigned Musculoskeletal Provider 04/17/24 Tanisha Marlow 4120 [facility] [address] 03/30/24 documented as of this encounter
--- OUTSIDE RECORDS SUMMARY | 2024-09-19 23:05 | XMS_ITS | Encounter Summary ---
Author Organization [place] Address [address] [place] [address] Care Team Providers Care Cannery Tender Engineer Name Role Phone Carlos Joyner MD Unavailable [phone] Jadon Murray MD Unavailable [phone] Maru Villagomez RN Unavailable Unavailable Ignacia Duran MD Primary Care Provider Ang Slade MD Unavailable [phone] Carlos Joyner MD Unavailable [phone] Annalise Orta PA-C Unavailable [phone] Ang Slade MD Unavailable [phone] Lakshmi Wilhelm-C Unavailable [phone] Heladio Willoughby MD Primary Care Provider [phone] Heladio Willoughby MD Unavailable Alissa Perez PA-C Unavailable [phone] Lakshmi Wilhelm PA-C Unavailable [phone] Aidee Valero PA-C Unavailable [phone] Encounter Details Date Type Department Care Team (Late st Contact Info) Description 12/05/2021 [facility] [address] [address] [facility] Social History Tobacco Use Types Packs/Day [...] Travel Start Travel End [place] 08/13/2024 08/19/2024 COVID-19 Exposure Response Date Recorded In the last 10 days, have yo u been in contact with someone who was confirmed or suspected to have Coronavirus/COVID-19? No / Unsure 12/04/2021 3:26 PM CDT documented as of this encounter Plan of Treatment Upcoming Encounters Date Type Department Care Team (Late st Contact Info) Description 09/20/2024 11:00 AM CDT Office Visit [facility] [address] [phone] Sugey Mccoy APRN [address] [place], [place] 3[address] 09/27/2024 1:40 PM CDT Ancillary Procedure [address] [place] [phone] [place] [address] [place] [place], [place] [address] 09/28/2024 10:30 AM CDT Therapy [facility] [address] [facility] [address] [place] [address] [place] [address] [facility] [place] [address] Daly Edmonds, OT [address] [place] [address] Scheduled Procedures Name Priority Associated Diagnoses Date/Ti [...] documented as of this encounter Care Teams Cannery Tender Engineer Relationship Specialty Start Date End Date Ignacia Duran MD PCP - General Pediatrics 01/20/20 03/04/23 [place] [address] [place] [address] PCP - General 03/05/23 Carlos Joyner MD [address] [place] [address] Urology 12/09/19 Jadon Murray MD [facility] [address] [facility] [address] [place] [address] Referring Physician Pediatric Surgery 12/09/19 Maru Villagomez, RN Registered Nurse 12/10/19 Ang Slade MD [address] [place] [address] 394 [place], [place] 821385 Urology 04/24/20 Carlos Joyner MD [address] [place] [address] 687135 Assigned Surgical Provider 12/24/20 Annalise Orta PA-C 5200 [place] [address] Assigned Cancer Care Provider 05/13/21 11/01/22 Ang Slade MD [address] [place] [address] 647735 Urology 12/18/22 Lakshmi Wilhelm PA-C [address] [place] [address] 133715 Physician Reamer Hand Urology 02/03/23 [place] [address] [place] [address] Assigned PCP 02/06/23 Alissa Perez PA-C [address] [place] [address] Physician Reamer Hand Surgery 09/04/23 Lakshmi Wilhelm PA-C [address] [place] [address] Physician Reamer Hand Urology 09/16/23 Aidee Valero PA-C [address] [place] [address] Assigned Musculoskeletal Provider 04/17/24 Tanisha Marlow 4120 [facility] [address] 03/30/24 documented as of this encounter
--- OUTSIDE RECORDS SUMMARY | 2024-09-19 23:05 | XMS_ITS | Encounter Summary ---
Author Organization [place] Address [address] [place] [address] Care Team Providers Care Ehs Teacher Name Role Phone Carlos Joyner MD Unavailable [phone] Jadon Murray MD Unavailable [phone] Maru Villagomez RN Unavailable Unavailable Ang Slade MD Unavailable [phone] Carlos Joyner MD Unavailable [phone] Ang Slade MD Unavailable [phone] Lakshmi Wilhelm-C Unavailable Heladio Willoughby MD Primary Care Provider [phone] Heladio Willoughby MD Unavailable Alissa Perez PA-C Unavailable [phone] Lakshmi Wilhelm-C Unavailable [phone] Aidee Valero PA-C Unavailable Reason for Visit * Reason Onset Date Comments Prior Auth - Medication 07/27/2024 COMPOUND ED NON-CONTROLLED SUBSTANCE (CMPD RX) - PHARMACY TO MIX COMPOUNDED MEDICATION--DENIED Encounter Details Date Type Department Care Team (Late st Contact Info) Description 07/27/2024 [facility] [address] [place] [address] Carlos Joyner MD [address] [place] [address] Prior Auth - Medication (COMPOUNDED NON-CONTROLLED [...] Answer Date Recorded PHQ-2 Score Incomplete 07/21/2024 [facility] - Occupational Stress Questionnaire [...] patient's guarding regarding this PA. Called the [facility] pharmacy, who said that the PA process is complete and the insurance will not cover. RN called patient's guardian to relay this info. OTILIO Becker Community Service Director- Urology [phone] * Telephone Encounter - Rosita Velasco RN - 08/04/2024 2:31 PM CDT Called the number provided to an expedite phone appeal. This was denied. The home office representative advisedthe claim will be sent for second level appeal. RN called [facility] pharmacy to update them. OTILIO Becker Community Service Director- Urology [phone] * Telephone Encounter - Daly Eaton - 08/03/2024 12:07 PM CDT Images from the original note were not included. PRIOR AUTHORIZATION DENIED Medication: COMPOUNDED NON-CONTROLLED (CMPD RX) - PHARMACY TO MIX COMPOUNDED MEDICATION Insurance Company: [employer] Part D - Denial Date: 07/30/2024 Denial Reason(s): Excluded Appeal Information: * Telephone Encounter - Daly Eaton - 07/29/2024 3:17 PM CST Images from the original note were not included. PA Initiation Medication: COMPOUNDED NON-CONTROLLED (CMPD RX) - PHARMACY TO MIX COMPOUNDED MEDICATION Insurance Company: [employer] Part D - Pharmacy Filling the Rx: [facility] [place], [place] - [address] [facility] Filling Pharmacy Start Date: 07/29/2024 OLOGY ASSISTANT * Telephone Encounter - Yovana Burt - 07/27/2024 1:05 PM CST A prior authorization is needed for the following compounded medications prescribed. Please complete a prior authorization with the information included below. Medication: Compounded Gentamicin 480 mg/L Bladder Irrigation Ingredients NDCs Quantities Gentamicin Sulfate 40 mg/mL Solution [address]-48 10.800 mLs Sodium Chloride 0.9% Solution [address]-87 889.200 mLs BD Syringe 50 mL [id number] 30.000 grams RX #: Reason for Rejection:[id number] Pharmacy Insurance plan: [employer] Part D BIN #:[id number] ID #:[id number] PCN #:[id number] Phone #:[phone] Pharmacy Please advise the [facility] @ [phone] when the prior authorization is approved or denied. Additionally, this medication is no longer covered by the secondary [facility] plan (what the patient now has), so there may be a copay associated with the medication once it is approved. Thank you for your time. [email or web address] [address] [place] [address] OLOGY ASSISTANT documented in this encounter Plan of Treatment Upcoming Encounters Date Type Department Care Team (Late st Contact Info) Description 09/20/2024 11:00 AM CDT Office Visit [address] [place] [phone] Sugey Mccoy, ALL ROUND BUTCHER [facility] [address] [place] [address] [address] [place], [place] 0312[address] 09/27/2024 1:40 PM CDT Ancillary Procedure [address] [place] [phone] [place] [address] [place], [place] 2466768 09/28/2024 10:30 AM CDT Therapy Visit [facility] [address] [facility] [address] [place], [place] [phone] [place] [address] [place], [place] 2662468 Daly Edmonds, OT 9 [place], [place] 75[address]25 Scheduled Procedures Name Priority Associated Diagnoses Date/Ti me NEPHROLITHOTOMY, PERCUTANEOU S, USING HOLMIUM LASER Kidney stone documented as of this encounter Visit Diagnoses Not on filedocumented in this encounter Care Teams Ehs Teacher Relationship Specialty Start [place] [address] [facility] [place] [address] PCP - General 03/05/23 Carlos Joyner MD [address] [place] [address] Urology 12/09/19 Jadon Murray MD [facility] 2530 [facility] 550 [place] [address] Referring Physician Pediatric Surgery 12/09/19 Maru Villagomez, RN Registered Nurse 12/10/19 Ang Slade MD [address] [place] [address] 394 [place], [place] 720715 Urology 04/24/20 Carlos Joyner MD [address] [place] [address] 378305 Assigned Surgical Provider 12/24/20 Ang Slade MD [address] [place] [address] 394 [place], [place] 434545 Urology 12/18/22 Lakshmi Wilhelm PA-C [address] [place] [address] 838955 Physician Lead Radiologic Technologist Urology 02/03/23 [place] [address] [place] [address] Assigned PCP 02/06/23 Alissa Perez PA-C [address] [place] [address]2015 Physician Lead Radiologic Technologist Surgery 09/04/23 Lakshmi Wilhelm PA-C [address] [place] [address] 211765 Physician Lead Radiologic Technologist Urology 09/16/23 Aidee Valero PA-C 9 [place] [address] Assigned Musculoskeletal Provider 04/17/24 Tanisha Marlow 4120 [facility] [address] 03/30/24 documented as of this encounter
--- OUTSIDE RECORDS SUMMARY | 2024-09-19 23:05 | XMS_ITS | Encounter Summary ---
Author Organization [place] Address [address] [place] [address] Care Team Providers Care Monologist Name Role Phone Carlos Joyner MD Unavailable [phone] Jadon Murray MD Unavailable [phone] Maru Villagomez RN Unavailable Unavailable Ignacia Duran MD Primary Care Provider [phone] Ang Slade MD Unavailable [phone] Carlos Joyner MD Unavailable [phone] Annalise Orta PA-C Unavailable Ang Slade MD Unavailable [phone] Lakshmi Wilhelm-C Unavailable [phone] Heladio Willoughby MD Primary Care Provider Heladio Willoughby MD Unavailable Alissa Perez PA-C Unavailable [phone] Lakshmi Wilhelm PA-C Unavailable [phone] Aidee Valero PA-C Unavailable Encounter Details Date Type Department Care Team (Late st Contact Info) Description 12/18/2021 [facility] [address] [place] [address] Carlos Joyner MD [address] [place] [address] Social History Tobacco Use Types Packs/Day [...] Start Travel End [place] 08/13/2024 08/19/2024 COVID-19 Exposure Response Date Recorded In the last 10 days, have yo u been in contact with someone who was confirmed or suspected to have Coronavirus/COVID-19? No / Unsure 12/04/2021 3:26 PM CDT documented as of this encounter Plan of Treatment Upcoming Encounters Date Type Department Care Team (Late st Contact Info) Description 09/20/2024 11:00 AM CDT Office Visit [address] [phone] Sugey Mccoy, TUBE BACKER [address] [place], [place] [address] 09/27/2024 1:40 PM CDT Ancillary Procedure [address] [place] [phone] [place] [address] [address] [place], [place] 479[address]68 09/28/2024 10:30 AM CDT Therapy Visit [facility] 2[address] [facility] [address] [place], [place] [phone] [place] [address] [place] [phone] Daly Edmonds, OT 9 [place] [address] Scheduled Procedures Name Priority Associated Diagnoses Date/Ti [...] documented as of this encounter Care Teams Monologist Relationship Specialty Start Date End Date Ignacia Duran MD PCP - General Pediatrics 01/20/20 03/04/23 [place] [address] [place] [address] PCP - General 03/05/23 Carlos Joyner MD [address] [place] [address] Urology 12/09/19 Jadon Murray MD [facility] [address] [facility] 550 [place] [address] Referring Physician Pediatric Surgery 12/09/19 Maru Villagomez, OTILIO Registered Nurse 12/10/19 Ang Slade MD [address] [place] [address] 394 [place], [place] 013125 Urology 04/24/20 Carlos Joyner MD [address] [place] [address] Assigned Surgical Provider 12/24/20 Annalise Orta PA-C 5200 [place] [address] Assigned Cancer Care Provider 05/13/21 11/01/22 Ang Slade MD [address] [place] [address] Urology 12/18/22 Lakshmi Wilhelm PA-C [address] [place] [address] Physician Military Source Operations Specialist Urology 02/03/23 [place] [address] [place] [address] Assigned PCP 02/06/23 Alissa Perez PA-C [address] [place] [address] Physician Military Source Operations Specialist Surgery 09/04/23 Lakshmi Wilhelm PA-C [address] [place] [address] Physician Military Source Operations Specialist Urology 09/16/23 Aidee Valero PA-C [address] [place] [address] 926225 Assigned Musculoskeletal Provider 04/17/24 Tanisha Marlow 4120 [facility] [address] 03/30/24 documented as of this encounter
--- OUTSIDE RECORDS SUMMARY | 2024-09-19 23:06 | XMS_ITS | Encounter Summary ---
Author Organization [place] Address [address] [place] [address] Care Team Providers Care Facility Maintenance Manager Name Role Phone Carlos Joyner MD Unavailable [phone] Jadon Murray MD Unavailable [phone] Maru Villagomez RN Unavailable Unavailable Ang Slade MD Unavailable [phone] Carlos Joyner MD Unavailable [phone] Ang Slade MD Unavailable [phone] Lakshmi Wilhelm-C Unavailable [phone] Heladio Willoughby MD Primary Care Provider [phone] Heladio Willoughby MD Unavailable Alissa Perez PA-C Unavailable [phone] Lakshmi Wilhelm-C Unavailable [phone] Aidee Valero PA-C Unavailable [phone] Encounter Details Date Type Department Care Team (Late st Contact Info) Description 08/18/2023 [facility] Medical Advice [facility] [address] [place] [address] Analisa Conner Social History Tobacco Use [...] Travel Start Travel End [place] 08/13/2024 08/19/2024 documented as of this encounter Plan of Treatment Upcoming Encounters Date Type Department Care Team (Late st Contact Info) Description 09/20/2024 11:00 AM CDT Office Visit [address] [address] Sugey Mccoy, [employer] CLAIMS SPECIALIST [address] [place] [address] [address] [place], [place] [address] 09/27/2024 1:40 PM CDT Ancillary Procedure [address] [place] [address] [place] [address] [place] [address] 09/28/2024 10:30 AM CDT Therapy Visit [facility] [address] [place] [address] [place] [address] [facility] [place] [address] Daly Edmonds, OT 909 [place], [place] 177245 Scheduled Procedures Name Priority Associated Diagnoses Date/Ti me NEPHROLITHOTOMY, PERCUTANEOU S, USING HOLMIUM LASER Kidney stone documented as of this encounter Visit Diagnoses Not on filedocumented in this encounter Care Teams Facility Maintenance Manager Relationship Specialty Start [place] [address] [address] [place], [place] 7287[address] PCP - General 03/05/23 Carlos Joyner MD [address] [place] [address] Urology 12/09/19 Jadon Murray MD [facility] [address] [facility] [address] [facility] 550 [place] [address] Referring Physician Pediatric Surgery 12/09/19 Maru Villagomez, RN Registered Nurse 12/10/19 Ang Slade MD [address] [facility] 394 [place] [address] Urology 04/24/20 Carlos Joyner MD 9 [place] [address] Assigned Surgical Provider 12/24/20 Ang Slade MD [address] [place] [address] 523155 Urology 12/18/22 Lakshmi Wilhelm PA-C [address] [place] [address] Physician Sanding Machine Tender Automatic Urology 02/03/23 [place] [address] [place] [address] Assigned PCP 02/06/23 Alissa Perez PA-C [address] [place] [address] Physician Sanding Machine Tender Automatic Surgery 09/04/23 Lakshmi Wilhelm PA-C [address] [place] [address] Physician Sanding Machine Tender Automatic Urology 09/16/23 Aidee Valero PA-C [address] [place] [address] Assigned Musculoskeletal Provider 04/17/24 Tanisha Marlow 4120 [facility] [address] 03/30/24 documented as of this encounter
== END 2024-09-19 23:43 | disposition home or self-care (01) ==
PROVIDERS: Emergency Provider Emergency Medicine; PCP Pediatrics
DX: M25.511 Pain in right shoulder (principal)
CPT/HCPCS: 73030; 99282; 99283; A9270

== ENCOUNTER 2025-02-26 23:10 | Emergency (ER) | payer MEDICARE, MEDICAID, SELFPAY ==
--- OUTSIDE RECORDS SUMMARY | 2025-01-12 17:30 | XMS_ITS | Encounter Summary ---
Author Organization [facility] Address [address] [place] [address] Care Team Providers Care Cleat Feeder Name Role Phone Carlos Joyner MD Unavailable [phone] Jadon Murray MD Unavailable [phone] Maru Villagomez RN Unavailable Unavailable Ang Slade MD Unavailable [phone] Carlos Joyner MD Unavailable [phone] Ang Slade MD Unavailable [phone] Lakshmi Wilhelm-C Unavailable [phone] Heladio Willoughby MD Primary Care Provider [phone] Heladio Willoughby MD Unavailable Alissa Perez PA-C Unavailable [phone] Lakshmi Wilhelm-C Unavailable [phone] Aidee Valero PA-C Unavailable [phone] Reason for Visit * Reason Comments Wound Check Patient has spina bi fida, she has folds on her back and there is a lesion about 1 inch in diameter within these folds. Has been there for about 1 week. Solutions Operator ( Tanisha )was notified of this today. Tanisha stated she was is unsure if anything has been being used on it. Nat (staff) with be patient for visit and can give more insight. Encounter Details Date Type Department Care Team (Latest Contact Info) Description 01/12/2025 5:30 PM CDT Virtual Visit [facility] [address] [place] [phone] Belen Arellano APRN [facility] [address] [place] [address] Open wound (Primary Dx); Paraplegia (H); Thoracic spina bifida, [...] than three times a week 07/16/2024 Attends [employer] Services Not on file 07/16 Active Member of Clubs or Organizations Not on f ile 07/16/2024 Attends Club or Organization Meetings Not on antelmo e 07/16/2024 Marital Status Not on file 07/16/2024 PHQ-2 Answer Date Recorded PHQ-2 Score 0 09/13/2024 [facility] Occupat ional [facility] - Occupational Stress [...] getting things that you need? No 07/16/2024 Interpersonal Safety Answer Date Record ed Do you feel physically and e motionally safe where you currently live? Yes 12/02/2024 Within the past 12 months, h ave you been hit, slapped, kicked or otherwise physically hurt by someone? No 12/02/2024 Within the past 12 months, h ave you been humiliated or emotionally abused in other ways by your partner or ex-partner? No 12/02/2024 Comments No Sex and Gender Information Value Date Recorded Sex Assigned at Not on file Legal Sex Female 3:09 PM CDT Gender Identity Not on file Sexual Orientation Not on file documented as of this encounter Progress Notes * Belen Arellano APRN PLANT OPERATIONS COORDINATOR - 01/12/2025 5:30 PM CDT Laina is a 24 year old who is being evaluated via a billable video visit. How would you like to obtain your AVS? MyChart If the video visit is dropped, the invitation should be resent by: Text to cell phone: Will anyone else be joining your video visit? Yes, Nat (House staff) Assessment & Plan Open wound Recurrent wound having approximately 3-4 times per year and fold related to spina bifida and paraplegia. Generally good skin care and A&E ointment will cleared up, staff reports that this has been improving. Continue keeping skin clean and dry, can do a trial of InterDry for recurrent symptoms.Has in in person evaluation scheduled for next week with PCP for follow up, symptoms which would warrant immediate follow-up discussed. - Wound Care Order for DME - ONLY FOR DME Paraplegia (H) Per above. - Wound Care Order for DME - ONLY FOR DME Thoracic spina bifida, unspecified hydrocephalus presence (H) Per above. - Wound Care Order for DME - ONLY FOR DME Yared Marina is a 24 year old, presenting for the following health issues: Wound Check (Patient has spina bifida, she has folds on her back and there is a lesion about 1 inchin diameter within these folds. Has been there for about 1 week. Solutions Operator ( Tanisha )was notified of this today. Tanisha stated she was is unsure if anything has been being used on it. /Nat (staff) with be patient for visit and can give more insight. ) 01/12/2025 4:53 PM Additional Questions Roomed by Maria Luisa Nash CMA Accompanied by Tanisha Marlow - eye clinic manager Start Time: 5:30 PM HPI Chief Complaint Patient presents with Wound Check Patient has spina bifida, she has folds on her back and there is a lesion about 1 inch in diameter within these folds. Has been there for about 1 week. Solutions Operator ( Tanisha )was notified of this today. Tanisha stated she was is unsure if anything has been being used on it. Nat (staff) with be patient for visit and can give more insight. Sore comes and goes, starting to get bad again about a week ago A and D ointment, keeping clean and dry will resolve will help No pain or surrounding redness Review of Systems Constitutional, HEENT, cardiovascular, pulmonary, gi and gu systems are negative, except as otherwise noted. Objective Vitals: No vitals were obtained today due to virtual visit. Physical Exam GENERAL: alert and no distress SKIN: linear open area in fold of skin on back, no surrounding erythema PSYCH: Appropriate affect, tone, and pace of words Video-Visit Details Type of service: Video Visit Video End Time:5:47 PM Originating Location (pt. Location): Home Distant Location (provider location): On-site Platform used for Video Visit: Miles Signed Electronically by: Belen Arellano APRN CNP documented in this encounter Plan of Treatment Upcoming Encounters Date Type Department Care Team (Late st Contact Info) Description 03/03/2025 9:00 AM CDT Office Visit [facility] [address] 3rd [place] [address] Jadon Floyd MD [address] [place] [address] 03/23/2025 12:45 PM CDT Appointment [facility] [address] [facility] [address] [place] [phone] Cayden Bejarano MD [address] [place] [address] [address] [place] [address] 03/23/2025 1:30 PM CDT Hospital Encounter [facility] [address] [facility] [address] [place] [phone] Cayden Bejarano MD [address] [place], [place] [address] [place] [address] 03/25/2025 10:20 AM CDT Virtual Visit [facility] [place] [address] [place], [place] [address] [place] [address] Cayden Bejarano MD [address] [place] [address] [address] [place] [address] 04/04/2025 12:00 PM LEARNING SUPPORT AIDE Office Visit [facility] [address] [phone] Sugey Mccoy APRN [address] [address] 05/30/2025 10:20 AM LEARNING SUPPORT AIDE Appointment [facility] [address] [facility] [address] [place] [address] Carlos Joyner MD [address] [place] [address] 05/31/2025 2:00 PM LEARNING SUPPORT AIDE Virtual Visit [facility] [address] 4th [place] [phone] Carlos Joyner MD [address] [place] [address] 07/25/2025 11:00 AM LEARNING SUPPORT AIDE Office Visit [facility] [address] [place] [phone] [place] [address] [place] [address] documented as of this encounter Visit Diagnoses Diagnosis Open wound- Primary Open wound(s) (multiple) of unspecified site(s), without mention of complication Paraplegia (H) Paraplegia Thoracic spina bifida, unspecified hydrocephalus presence (H) documented in this encounter Care Teams Cleat Feeder Relationship Specialty Start [place] [address] [place], [place] [phone] PCP - General 03/05/23 Carlos Joyner MD [address] [place] [address] Urology 12/09/19 Jadon Murray MD [facility] [address] [address] Referring Physician Pediatric Surgery 12/09/19 Maru Villagomez, OTILIO Registered Nurse 12/10/19 Ang Slade MD [address] [place] [address] Urology 04/24/20 Carlos Joyner MD [address] [place] [address] Assigned Surgical Provider 12/24/20 Ang Slade MD [address] [place] [address] Urology 12/18/22 Lakshmi Wilhelm PA-C [address] [place] [address] Physician Stockroom Clerk Urology 02/03/23 [place] [address] [place] [address] Assigned PCP 02/06/23 Alissa Perez PA-C [address] [place] [address] Physician Stockroom Clerk Surgery 09/04/23 Lakshmi Wilhelm PA-C [address] [place] [address] Physician Stockroom Clerk Urology 09/16/23 Aidee Valero PA-C [address] [place] [address] Assigned Musculoskeletal Provider 04/17/24 02/14/25 Tanisha Marlow [address] [facility] [address] 03/30/24 documented as of this encounter
--- OUTSIDE RECORDS SUMMARY | 2025-01-18 10:07 | XMS_ITS | Encounter Summary ---
Author Organization [facility] Address [address] [place] [address] Care Team Providers Care Factory Worker Name Role Phone Carlos Joyner MD Unavailable [phone] Jadon Murray MD Unavailable [phone] Maru Villagomez RN Unavailable Unavailable Ang Slade MD Unavailable [phone] Carlos Joyner MD Unavailable [phone] Ang Slade MD Unavailable Lakshmi Wilhelm-C Unavailable [phone] Heladio Willoughby MD Primary Care Provider [phone] Heladio Willoughby MD Unavailable Alissa Perez PA-C Unavailable [phone] Lakshmi Wilhelm-Juan A Unavailable [phone] Aidee Valero PA-C Unavailable [phone] Reason for Referral * Diagnostic Imaging CT Scan (Routine) - Closed Specialty Diagnoses / Procedures Referred By Contabran t Referred To Contact Radiology. Diagnoses Bilateral nephrolithiasis Procedures CT Abdomen Pelvis w/o Contrast Mary Jo Pineda MD [address] [place] [address] Phone: tel: fax: Referral ID Status Reason Start Date Expiration Date Visits Re quested Visits Authorized [id number] Closed 12/04/2024 12/04/2025 1 1 Reason for Visit * Diagnostic Imaging CT Scan (Routine) - Closed Specialty Diagnoses / Procedures Referred By Charli sylvester Referred To Contact Radiology. Diagnoses Bilateral nephrolithiasis Procedures CT Abdomen Pelvis w/o Contrast Mary Jo Pineda MD [address] [place] [address] Phone: tel: fax: Referral ID Status Reason Start Date Expiration Date Visits Re quested Visits Authorized [id number] Closed 12/04/2024 12/04/2025 1 1 Encounter Details Date Type Department Care Team (Latest Contact Info) Description 01/18/2025 10:07 AM CDT - 01/18/2025 11:59 PM CDT Hospital Encounter [facility] [address] [place] [address] Mary Jo Pineda MD [address] [place] [address] [phone] Bilateral nephrolithiasis Discharge Disposition: Home or Self [...] Answer Date Recorded PHQ-2 Score 0 09/13/2024 [facility] [place] of Occupat ional Health - Occupational Stress [...] ALGINATE 2X2) PADSIndications:Pres sure ulcer acquired in [facility] Externally apply 1 each topically daily 10 each 3 documented as of this encounter Plan of Treatment Upcoming Encounters Date Type Department Care Team (Late st Contact Info) Description 03/03/2025 9:00 AM CDT Office Visit [facility] [address] [place] [address] Jadon Floyd MD [address] [place] [address] [id number] 03/23/2025 12:45 PM CDT Appointment [facility] [address] [place] [address] [place] [address] [place] [address] 03/23/2025 1:30 PM CDT Hospital Encounter [facility] [address] [place] [address] [place] [address] [place] [address] 03/25/2025 10:20 AM CDT Virtual Visit [facility] [place] [address] [place] [address] [place] [address] [place] [address] 04/04/2025 12:00 PM JACQUARD LOOM HEDDLES TIER Office Visit [facility] [address] [phone] Sugey Mccoy, [address] [address] 05/30/2025 10:20 AM JACQUARD LOOM HEDDLES TIER Appointment [facility] [address] [place] [phone] Carlos Joyner MD [address] [place] [address] 05/31/2025 2:00 PM JACQUARD LOOM HEDDLES TIER Virtual Visit [facility] [address] 4th [place] [phone] Carlos Joyner MD [address] [place] [address] [id number] 07/25/2025 11:00 AM JACQUARD LOOM HEDDLES TIER Office Visit [facility] [place] [address] [facility] [place] [address] [place] [address] [facility] [place] [address] documented as of this encounter Procedures [...] EXAM: CT ABDOMEN PELVIS W/O CONTRAST LOCATION: [facility] DATE: 01/18/2025 INDICATION: Bilateral nephrolithiasis COMPARISON: None. [...] EXAM: CT ABDOMEN PELVIS W/O CONTRAST LOCATION: [facility] DATE: 01/18/2025 INDICATION: Bilateral nephrolithiasis COMPARISON: None. [...] nephrolithiasis documented in this encounter Care Teams Factory Worker Relationship Specialty Start [place] [address] [place] [address] PCP - General 03/05/23 Carlos Joyner MD [address] [place] [address] Urology 12/09/19 Jadon Murray MD [facility] [address] [facility] [address] [place] [address] Referring Physician Pediatric Surgery 12/09/19 Maru Villagomez, RN Registered Nurse 12/10/19 Ang Slade MD [address] [place] [address] Urology 04/24/20 Carlos Joyner MD [address] [place] [address] [phone] Assigned Surgical Provider 12/24/20 Ang Slade MD [address] [place] [address] [phone] Urology 12/18/22 Lakshim Wilhelm PA-C [address] [place] [address] 228395 Physician Supercalender Operator Urology 02/03/23 [place] [address] [place] [address] Assigned PCP 02/06/23 Alissa Perez PA-C [address] [place] [address] Physician Supercalender Operator Surgery 09/04/23 Lakshmi Wilhelm PA-C [address] [place] [address] Physician Supercalender Operator Urology 09/16/23 Aidee Valero PA-C [address] [place] [address] Assigned Musculoskeletal Provider 04/17/24 02/14/25 aTnisha Marlow [address] [facility] [address] 03/30/24 documented as of this encounter
--- OUTSIDE RECORDS SUMMARY | 2025-01-18 10:07 | XMS_ITS | Encounter Summary ---
Author Organization [facility] Address [address] [place] [address] Care Team Providers Care Dross Puller Name Role Phone Carlos Joyner MD Unavailable [phone] Jadon Murray MD Unavailable [phone] Maru Villagomez RN Unavailable Unavailable Ang Slade MD Unavailable [phone] Carlos Joyner MD Unavailable [phone] Ang Slade MD Unavailable Lakshmi Wilhelm-C Unavailable [phone] Heladio Willoughby MD Primary Care Provider [phone] Heladio Willoughby MD Unavailable Alissa Perez PA-C Unavailable [phone] Lakshmi Wilhelm-Juan A Unavailable [phone] Aidee Valero PA-C Unavailable [phone] Reason for Referral * Diagnostic Imaging CT Scan (Routine) - Closed Specialty Diagnoses / Procedures Referred By Contabran t Referred To Contact Radiology. Diagnoses Bilateral nephrolithiasis Procedures CT Abdomen Pelvis w/o Contrast Mary Jo Pineda MD [address] [place] [address] Phone: tel: fax: Referral ID Status Reason Start Date Expiration Date Visits Re quested Visits Authorized [id number] Closed 12/04/2024 12/04/2025 1 1 Reason for Visit * Diagnostic Imaging CT Scan (Routine) - Closed Specialty Diagnoses / Procedures Referred By Charli sylvester Referred To Contact Radiology. Diagnoses Bilateral nephrolithiasis Procedures CT Abdomen Pelvis w/o Contrast Mary Jo Pineda MD [address] [place] [address] Phone: tel: fax: Referral ID Status Reason Start Date Expiration Date Visits Re quested Visits Authorized [id number] Closed 12/04/2024 12/04/2025 1 1 Encounter Details Date Type Department Care Team (Latest Contact Info) Description 01/18/2025 10:07 AM CDT - 01/18/2025 11:59 PM CDT Hospital Encounter [facility] [address] [place] [address] Mary Jo Pineda MD [address] [place] [address] [phone] Bilateral nephrolithiasis Discharge Disposition: Home or Self [...] Answer Date Recorded PHQ-2 Score 0 09/13/2024 [facility] of Occupat ional Health - Occupational Stress [...] PADSIndications:Pres sure ulcer acquired in [facility] Externally apply 1 each topically daily 10 each 3 documented as of this encounter Plan of Treatment Upcoming Encounters Date Type Department Care Team (Late st Contact Info) Description 03/03/2025 9:00 AM CDT Office Visit [facility] [address] [place] [address] Jadon Floyd MD [address] [place] [address] 03/23/2025 12:45 PM CDT Appointment [facility] [address] [place] [address] [place] [address] [place] [address] 03/23/2025 1:30 PM CDT Hospital Encounter [facility] [address] [place] [address] [place] [address] [place] [address] 03/25/2025 10:20 AM CDT Virtual Visit [facility] [place] [address] [address] [place] [address] [place] [address] [place] [address] 04/04/2025 12:00 PM CREEL HAND Office Visit [facility] [address] [phone] Sugey Mccoy, [address] [address] 05/30/2025 10:20 AM CREEL HAND Appointment [facility] [address] [place] [address] Carlos Joyner MD [address] [place] [address] 05/31/2025 2:00 PM CREEL HAND Virtual Visit [facility] [address] 4[address] [place] [phone] Carlos Joyner MD [address] [place] [address] [phone] 07/25/2025 11:00 AM CREEL HAND Office Visit [facility] [address] [facility] [place] [address] [place] [address] [facility] [place] [address] documented as of this encounter Procedures [...] EXAM: CT ABDOMEN PELVIS W/O CONTRAST LOCATION: [facility] DATE: 01/18/2025 INDICATION: Bilateral nephrolithiasis COMPARISON: [...] EXAM: CT ABDOMEN PELVIS W/O CONTRAST LOCATION: [facility] DATE: 01/18/2025 INDICATION: Bilateral nephrolithiasis COMPARISON: [...] nephrolithiasis documented in this encounter Care Teams Dross Puller Relationship Specialty Start [place] [address] [place] [address] PCP - General 03/05/23 Carlos Joyner MD [address] [place] [address] Urology 12/09/19 Jadon Murray MD [facility] [address] [facility] [address] [place] [address] Referring Physician Pediatric Surgery 12/09/19 Maru Villagomez, RN Registered Nurse 12/10/19 Ang Slade MD [address] [place] [address] Urology 04/24/20 Carlos Joyner MD [address] [place] [address] [phone] Assigned Surgical Provider 12/24/20 Ang Slade MD [address] [place] [address] [phone] Urology 12/18/22 Lakshmi Wilhelm PA-C [address] [place] [address] [phone] Physician Runner On Urology 02/03/23 [place] [address] [place] [address] Assigned PCP 02/06/23 Alissa Perez PA-C [address] [place] [address] Physician Runner On Surgery 09/04/23 Lakshmi Wilhelm PA-C [address] [place] [address] Physician Runner On Urology 09/16/23 Aidee Valero PA-C [address] [place] [address] Assigned Musculoskeletal Provider 04/17/24 02/14/25 Tanisha Marlow [address] [facility] [address] 03/30/24 documented as of this encounter
--- OUTSIDE RECORDS SUMMARY | 2025-01-19 11:30 | XMS_ITS | Encounter Summary ---
Author Organization [facility] Address [address] [place] [address] Care Team Providers Care Laboratory Associate Name Role Phone Carlos Joyner MD Unavailable [phone] Jadon Murray MD Unavailable [phone] Maru Villagomez RN Unavailable Unavailable Ang Slade MD Unavailable [phone] Carlos Joyner MD Unavailable [phone] Ang Slade MD Unavailable [phone] Lakshmi Wilhelm-C Unavailable [phone] Heladio Willoughby MD Primary Care Provider [phone] Heladio Willoughby MD Unavailable Alissa Perez PA-C Unavailable [phone] Lakshmi Wilhelm-C Unavailable [phone] Aidee Valero PA-C Unavailable [phone] Reason for Referral * Consultation (Priority: 1-2 Weeks) - Pending Review Specialty Diagnoses / Procedures Referred By Charli t Referred To Contact Diagnoses Pressure injury of left lower back, stage 2 (H) History of pressure injury of skin Paraplegia ([place]) [place] [address] [place] [address] Phone: tel: fax: Referral ID Status Reason Start Date Expiration Date V isits Requested Visits Authorized [id number] Pending Review 01/24/2025 01/24/2026 1 1 Question Answer Reason for Referral: Other My Clinical Question Is: Hx of spina bifida; T12 paraplegia, recurrent pressure wounds. Scheduling Instructions: [facility] will call you to coordinate your care as prescribed by your provider. A billing representative will call you within 2 business days to help schedule your appointment, or you may contact the Director Enterprise Data [employer] Belt Machine Operator at . Comments Please be aware that coverage of these services is subject to the terms and limitations of your health insurance plan. Call member services at your health plan with any benefit or coverage questions. [facility] will call you to coordinate your care as prescribed by your provider. A billing representative will call you within 2 business days to help schedule your appointment, or you may contact the Director Enterprise Data [employer] Belt Machine Operator at . * Consultation (Routine) - Pending Review Specialty Diagnoses / Procedures Referred By Charli sylvetser Referred To Contact Diagnoses [place] [address] [place] [address] Phone: tel: fax: Referral ID Status Reason Start Date Expiration Date V isits Requested Visits Authorized [id number] Pending Review 01/19/2025 01/19/2026 1 1 Question Answer Consult Type: Hand/Wrist Type: Per Protocol My clinical question is: R wrist pain Patient Scheduling Instructions: [facility] Orthopedic Director [employer] team will contact you via phone, text, email or IN-PIPE TECHNOLOGYhart within 2 business days to help you schedule your appointment, or you may contact the Director Enterprise Data [employer] Team at . Comments Please be aware that coverage of these services is subject to the terms and limitations of your health insurance plan. Call member services at your health plan with any benefit or coverage questions. [facility] Orthopedic Director [employer] team will contact you via phone, text, email or IN-PIPE TECHNOLOGYhart within 2 business days to help you schedule your appointment, or you may contact the Director Enterprise Data [employer] Team at . Reason for Visit * Reason Comments IUD Wound Check Musculoskeletal Problem Encounter Details Date Type Department Care Team (Late st Contact Info) Description 01/19/2025 11:30 AM CDT Office Visit M [facility] [address] [place] [phone] [place] [address] [place] [address] IUD check up (Primary Dx); Pressure injury of left lower back, stage 2 (H); History of pressure injury of skin; Paraplegia (H); Right wrist pain Social History Tobacco Use Types Packs/Day Years [...] Answer Date Recorded PHQ-2 Score 0 09/13/2024 [facility] - [...] Sign Reading Time Taken Comments Blood Pressure 102/65 01/19/2025 11:26 AM CDT Pulse 101 01/19/2025 11:26 AM CDT Temperature 36.7 C (98 F) 01/19/2025 11:26 AM CDT Respiratory Rate 18 01/19/2025 11:26 AM CDT Oxygen Saturation 96% 01/19/2025 11:26 AM CDT Inhaled Oxygen Concentration - - Weight 70.3 kg (155 lb) 01/19/2025 11:26 AM CDT Height 157.5 cm (5' 2) 01/19/2025 11:26 AM CDT Body Mass Index 28.35 01/19/2025 11:26 AM CDT documented in this encounter Patient Instructions * Patient Instructions* Heladio Willoughby MD - 01/19/2025 11:30 AM CDT For wound care: Continue to use either Vaseline or the A&D cream. Apply thin layer (maybe pea size amount to wound). Cover with Mepilex bandage. Remove and replace bandage when soaked or has signs of moisture. Place soft towel/fabric in between skin fold to offset pressure point. Follow up in one week. documented in this encounter Progress Notes * Heladio Willoughby MD - 01/19/2025 11:30 AM CDT Images from the original note were not included. Assessment & Plan IUD check up IUD in place. No concerns. Pressure injury of left lower back, stage 2 (H) Hx of pressure injury of skin Paraplegia (H) Current stage 2 non-infected pressure wound, see below image for details/description. Hx of prior pressure wounds. Complicated by hx of spina bifida with paraplegia, wheelchair bound. Dressed wound, provided instructions on wound care. Offload pressure point. Plan to follow up in one week. In meanti me, refer to PM&R for ongoing management, mattress/wheelchair pressure point assessment. - referral to Adult Physical Medicine and Rehab Director [employer] Right wrist pain - Orthopedic Director [employer] Referral BMI Estimated body mass index is 28.35 kg/m?? as calculated from the following: Height as of this encounter: 1.575 m (5' 2). Weight as of this encounter: 70.3 kg (155 lb). The longitudinal plan of care for the diagnosis(es)/condition(s) as documented were addressed during this visit. Due to the added complexity in care, I will continue to support Laina in the subsequent management and with ongoing continuity of care. Follow up in one week for pressure wound recheck [facility] Yared Marina is a 24 year old, presenting for the following health issues: IUD, Wound Check, and Musculoskeletal Problem 01/19/2025 11:23 AM Additional Questions Roomed by Nohemi Gongora CMA Accompanied by Analisa-guardian 01/19/2025 11:23 AM Patient Reported Additional Medications Patient reports taking the following new medications None Contraception History of Present Illness Reason for visit: IUD Placement Follow Up & Wrist Pain Provider Support Request She eats 2-3 servings of fruits and vegetables daily.She consumes 2 sweetened beverage(s) daily.Sheexercises with enough effort to increase her heart rate 9 or less minutes per day. She exercises with enough effort to increase her heart rate 3 or less days per week. She is taking medications regularly. R wrist Pain, pretty bad. Just started hurting in the past couple of weeks. If not using brace, hurts a ton. In PT, working on this. Prior injury from 2014. Hurts to transfer. Back wound On the left side. Using A&D cream. Wants to make sure no infection and is healing. She can't feel the wound. First noticed a couple of weeks ago. Not sure if any discharge at all. Has been using daily bandage. No fevers. No nausea. Has had recurrent wounds on back in the past. IUD check Has had one period since placement. Had prolonged period but all bleeding and spotting has since resolved. No additional vaginal odor or discharge. No issues at all. Sees PM&R - for large and small motor activities. Objective BP 102/65 (BP Location: Right arm, Patient Position: Sitting, Cuff Size: Adult Large) Pulse 101 Temp 98 ??F (36.7 ??C) (Oral) Resp 18 Ht 1.575 m (5' 2) Wt 70.3 kg (155 lb) LMP (LMP Unknown) SpO2 96% BMI 28.35 kg/m?? Body mass index is 28.35 kg/m??. Physical Exam GENERAL: healthy, alert and no distress HEAD: Normocephalic, atraumatic. EYES: Normal conjunctivae, sclera. RESP: Normal respiratory effort. : Normal external genitalia. Normal appearing vaginal vault and cervix. Both IUD strings visible extending from cervical os. MSK: no gross musculoskeletal defects noted. R WRIST: No gross abnormalities. No significant edema,erythema, warmth. Normal active ROM. TTP over distal ulna and radius. SKIN: 3x1cm wound with exposed dermis appreciated in left thoracic back within crease of skin fold.Surrounded by minimal erythema. Some maceration. No purulence, warmth, edema. (See image). EXT: Warm and well perfused. DP pulses 2+ bilaterally. NEURO: CNII-XII grossly intact. No focal deficits. PSYCH: Groomed, dressed appropriately for weather. Logical, linear thought process. Normal mood with consistent affect. Signed Electronically by: Heladio Willoughby MD documented in this encounter Plan of Treatment Upcoming Encounters Date Type Department Care Team (Late st Contact Info) Description 03/03/2025 9:00 AM CDT Office Visit [facility] [address] [phone] Jadon Floyd MD [address] [place] [address] 03/23/2025 12:[address] [facility] [address] [facility] [address] [place] [phone] Cayden Bejarano MD [address] [place] [address] DR CRUZ [address] [place] [address] 03/23/2025 1:30 PM CDT Hospital Encounter [facility] [address] [place] [phone] Cayden Bejarano MD [address] [place] [address] [address] [place] [address] 03/25/2025 10:20 AM CDT Virtual Visit [facility] [place] [address] [place] [address] [place] [address] [address] [place] [address] 04/04/2025 12:00 PM AIRPLANE MECHANIC Office Visit [facility] [place] [address] [place] [phone] Sugey Mccoy, AMUSEMENT PARK ENTERTAINER [facility] [address] [place], [place] [address] 05/30/2025 10:20 AM AIRPLANE MECHANIC Appoint[address] [facility] [address] [place] [phone] Carlos Joyner MD [address] [place] [address] 926385 05/31/2025 2:00 PM AIRPLANE MECHANIC Virtual Visit [facility] [place] [address] [facility] 4th [place] [phone] Carlos Joyner MD [address] [place] [address] [phone] 07/25/2025 11:00 AM AIRPLANE MECHANIC Office Visit [address] [address] Heladio Willoughby MD [address] [place] [address] [phone] Scheduled Referrals Name Type Priority Associated Diagnoses Orde r Schedule Orthopedic Director [employer] Referral Referral Routine Right wrist pain Expected: 01/19/2025 (Approximate), Expires: 01/19/2026 Adult Physical Medicine and Rehab Director [employer] Referral Referral Priority: 1-2 Weeks Pressure injury of left lower back, stage 2 (H) History of pressure injury of skin Paraplegia (H) Expected: 01/24/2025 (Approximate), Expires: 01/24/2026 documented as of this encounter Visit Diagnoses Diagnosis IUD check up- Primary Surveillance of previously prescribed intrauterine contraceptive device Pressure injury of left lower back, stage 2 (H) History of pressure injury of skin Paraplegia (H) Paraplegia Right wrist pain Pain in joint, forearm documented in this encounter Care Teams Laboratory Associate Relationship Specialty Start [place] [address] [place] [address] PCP - General 03/05/23 Carlos Joyner MD [address] [place] [address] Urology 12/09/19 Jadon Murray MD [facility] [address] [facility] 550 [place], [place] [phone] Referring Physician Pediatric Surgery 12/09/19 Maru Villagomez, RN Registered Nurse 12/10/19 Ang Slade MD [address] [place] [address] [id number] Urology 04/24/20 Carlos Joyner MD [address] [place] [address] [id number] Assigned Surgical Provider 12/24/20 Ang Slade MD [address] [address] Urology 12/18/22 Lakshmi Wilhelm PA-C [address] [place] [address] Physician Parts Counter Salesperson Urology 02/03/23 [place] [address] [place] [address] Assigned PCP 02/06/23 Alissa Perez PA-C [address] [place] [address] Physician Parts Counter Salesperson Surgery 09/04/23 Lakshmi Wilhelm PA-C [address] [place] [address] Physician Parts Counter Salesperson Urology 09/16/23 Aidee Valero PA-C [address] [place] [address] Assigned Musculoskeletal Provider 04/17/24 02/14/25 Tanisha Marlow [address] [facility] [address] 03/30/24 documented as of this encounter
--- OUTSIDE RECORDS SUMMARY | 2025-01-19 11:30 | XMS_ITS | Encounter Summary ---
Author Organization [facility] Address [address] [place] [address] Care Team Providers Care Rn Case Manager Name Role Phone Carlos Joyner MD Unavailable [phone] Jadon Murray MD Unavailable [phone] Maru Villagomez RN Unavailable Unavailable Ang Slade MD Unavailable [phone] Carlos Joyner MD Unavailable [phone] Ang Slade MD Unavailable [phone] Lakshmi Wilhelm-C Unavailable [phone] Heladio Willoughby MD Primary Care Provider [phone] Heladio Willoughby MD Unavailable Alissa Perez PA-C Unavailable [phone] Lakshmi Wilhelm-C Unavailable [phone] Aidee Valero PA-C Unavailable [phone] Reason for Referral * Consultation (Priority: 1-2 Weeks) - Pending Review Specialty Diagnoses / Procedures Referred By Charli t Referred To Contact Diagnoses Pressure injury of left lower back, stage 2 (H) History of pressure injury of skin Paraplegia (H) [place] [address] [place] [address] Phone: tel: fax: Referral ID Status Reason Start Date Expiration Date V isits Requested Visits Authorized [id number] Pending Review 01/24/2025 01/24/2026 1 1 Question Answer Reason for Referral: Other My Clinical Question Is: Hx of spina bifida; T12 paraplegia, recurrent pressure wounds. Scheduling Instructions: [facility] will call you to coordinate your care as prescribed by your provider. A community health representative will call you within 2 business days to help schedule your appointment, or you may contact the Inner Layer Scrubber Tender Mortgage Counselor at . Comments Please be aware that coverage of these services is subject to the terms and limitations of your health insurance plan. Call member services at your health plan with any benefit or coverage questions. [facility] will call you to coordinate your care as prescribed by your provider. A community health representative will call you within 2 business days to help schedule your appointment, or you may contact the Inner Layer Scrubber Tender Mortgage Counselor at . * Consultation (Routine) - Pending Review Specialty Diagnoses / Procedures Referred By Charli sylvester Referred To Contact Diagnoses [place] [address] [place] [address] Phone: tel: fax: Referral ID Status Reason Start Date Expiration Date V isits Requested Visits Authorized [id number] Pending Review 01/19/2025 01/19/2026 1 1 Question Answer Consult Type: Hand/Wrist Type: Per Protocol My clinical question is: R wrist pain Patient Scheduling Instructions: Our [facility] Orthopedic Inner Layer Scrubber Tender team will contact you via phone, text, email or Achaogenhart within 2 business days to help you schedule your appointment, or you may contact the Inner Layer Scrubber Tender Team at . Comments Please be aware that coverage of these services is subject to the terms and limitations of your health insurance plan. Call member services at your health plan with any benefit or coverage questions. Our [facility] Inner Layer Scrubber Tender team will contact you via phone, text, email or Achaogenhart within 2 business days to help you schedule your appointment, or you may contact the Inner Layer Scrubber Tender Team at . Reason for Visit * Reason Comments IUD Wound Check Musculoskeletal Problem Encounter Details Date Type Department Care Team (Late st Contact Info) Description 01/19/2025 11:30 AM CDT Office Visit [facility] [address] [place] [phone] [place] [address] [place] [address] IUD check up (Primary Dx); [...] than three times a week 07/16/2024 Attends Spiritism Services Not on file 07/16 Active Member of Clubs or Organizations Not on f ile 07/16/2024 Attends Club or Organization Meetings Not on antelmo e 07/16/2024 Marital Status Not on file 07/16/2024 PHQ-2 Answer Date Recorded PHQ-2 Score 0 09/13/2024 [facility] - [...] referral to Adult Physical Medicine and Rehab Inner Layer Scrubber Tender Right wrist pain - Orthopedic Inner Layer Scrubber Tender Referral BMI Estimated body mass index is [...] for pressure wound recheck [facility] Yared Marina is a 24 year [...] Description 03/03/2025 9:00 AM CDT Office Visit [facility] [address] [phone] Jadon Floyd MD [address] [place] [address] 03/23/2025 12:45 PM CDT Appointment [facility] [address] [facility] [address] [place] [phone] Cayden Bejarano MD [address] [place] [address] DR CRUZ [address] [place] [address] 03/23/2025 1:30 PM CDT Hospital Encounter [facility] [address] [place] [phone] Cayden Bejarano MD [address] [place] [address] [address] [place] [address] 03/25/2025 10:20 AM CDT Virtual Visit [facility] [place] [address] [place] [address] [place] [address] [address] [place] [address] 04/04/2025 12:00 PM RISK ASSESSOR Office Visit [facility] [address] [place] [phone] Sugey Mccoy, MOTION DESIGNER [facility] [address] [place], [place] [address] 05/30/2025 10:20 AM RISK ASSESSOR Appointment [facility] [address] [place] [phone] Carlos Joyner MD [address] [place] [phone] 05/31/2025 2:00 PM RISK ASSESSOR Virtual Visit [facility] [address] [facility] 4th [place] [phone] Carlos Joyner MD [address] [place] [phone] 07/25/2025 11:00 AM RISK ASSESSOR Office Visit [address] [address] Heladio Willoughby MD [address] [place] [address] [phone] Scheduled Referrals Name Type Priority Associated Diagnoses Orde r Schedule Orthopedic Inner Layer Scrubber Tender Referral Referral Routine Right wrist pain Expected: 01/19/2025 (Approximate), Expires: 01/19/2026 Adult Physical Medicine and Rehab Inner Layer Scrubber Tender Referral Referral Priority: 1-2 Weeks Pressure injury [...] forearm documented in this encounter Care Teams Rn Case Manager Relationship Specialty Start [place] [address] [place] [address] PCP - General 03/05/23 Carlos Joyner MD [address] [place] [address] Urology 12/09/19 Jadon Murray MD [facility] [address] [facility] [address] [place], [place] [phone] Referring Physician Pediatric Surgery 12/09/19 Maru Villagomez, RN Registered Nurse 12/10/19 Ang Slade MD [address] [place] [phone] Urology 04/24/20 Carlos Joyner MD [address] [place] [address] [phone] Assigned Surgical Provider 12/24/20 Ang Slade MD [address] [address] Urology 12/18/22 Lakshmi Wilhelm PA-C [address] [place] [id number] Physician Rn Recruitment Urology 02/03/23 [place] [address] [place] [address] Assigned PCP 02/06/23 Alissa Perez PA-C [address] [place] [phone] Physician Rn Recruitment Surgery 09/04/23 Lakshmi Wilhelm PA-C [address] [place] [address] Physician Rn Recruitment Urology 09/16/23 Aidee Valero PA-C [address] [place] [id number] Assigned Musculoskeletal Provider 04/17/24 02/14/25 Tanisha Marlow [address] [facility] [address] 03/30/24 documented as of this encounter
--- OUTSIDE RECORDS SUMMARY | 2025-01-25 10:45 | XMS_ITS | Encounter Summary ---
Author Organization [facility] Address [address] [place] [address] Care Team Providers Care Jet Wiper Name Role Phone Carlos Joyner MD Unavailable [phone] Jadon Murray MD Unavailable [phone] Maru Villagomez RN Unavailable Unavailable Ang Slade MD Unavailable [phone] Carlos Joyner MD Unavailable [phone] Ang Slade MD Unavailable [phone] Lakshmi Wilhelm-C Unavailable [phone] Heladio Willoughby MD Primary Care Provider [phone] Heladio Willoughby MD Unavailable Alissa Perez PA-C Unavailable [phone] Lakshmi Wilhelm-Juan A Unavailable [phone] Aidee Valero PA-C Unavailable [phone] Carlos Joyner MD Unavailable [phone] Reason for Referral * Diagnostic Imaging Ultrasound (Routine) - Authorized Specialty Diagnoses / Procedures Referred By Contabran t Referred To Contact Radiology. Diagnoses Recurrent UTI Kidney stone Procedures US Renal Complete Non-Vascular Carlos Joyner MD [address] [place] [address] Phone: tel: fax: Referral ID Status Reason Start Date Expiration Date V isits Requested Visits Authorized [id number] Authorized 01/25/2025 01/25/2026 1 1 * Diagnostic Imaging XR (Routine) - Authorized Specialty Diagnoses / Procedures Referred By Contac t Referred To Contact Radiology. Diagnoses Recurrent UTI Kidney stone Procedures XR Abdomen 2 Views Carlos Joyner MD [address] [place] [address] Phone: tel: fax: Referral ID Status Reason Start Date Expiration Date V isits Requested Visits Authorized [id number] Authorized 01/25/2025 01/25/2026 1 1 Reason for Visit * Reason Comments RECHECK Encounter Details Date Type Department Care Team (Late st Contact Info) Description 01/25/2025 10:45 AM CDT Virtual Visit [facility] [address] [place] [phone] Cralos Joyner MD [address] [place] [address] [phone] Recurrent UTI (Primary Dx); Kidney stone Social History Tobacco Use Types Packs/Day Years Used Date Smoking Tobacco: Never Smokeless Tobacco: Never Tobacco Cessation:Counseling Given: Not Answered Comments:N/A Alcohol Use Standard Drinks/Week Comments Never 0 (1 standard drink = 0.6 oz pur e alcohol) Social Connection and Isolat ion Panel [NHANES] Answer Date Recorded Frequency of Communication w ith Friends and Family Not on file 07/16/2024 How often do you get togethe r with friends or relatives? More than three times a week 07/16/2024 Attends Yazidism Services Not on file 07/16 Active Member of Clubs or Organizations Not on f ile 07/16/2024 Attends Club or Organization Meetings Not on antelmo e 07/16/2024 Marital Status Not on file 07/16/2024 PHQ-2 Answer Date Recorded PHQ-2 Score 0 09/13/2024 [facility] - [...] exercise (like a brisk walk)? 0 days 01/27/2025 On average, how many minutes do you engage in exercise at this level? 0 min 01/27/2025 Adolescent Education Answer Date Record ed Getting [...] Progress Notes * Carlos Joyner MD - 01/25/2025 10:45 AM CDT Virtual Visit Details Type of service: Video Visit Video Start Time: 10:45 Video End Time:11:00 Originating Location (pt. Location): Home Distant Location (provider location): Off-site Platform used for Video Visit: [facility] UROLOGY OUTPATIENT VISIT CHIEF COMPLAINT Kidney Stones Synopsis History of Present Illness- Laina Escudero, 24-year-old female with hx of spina bifida and horseshoe kidney - Underwent surgery for kidney stones a couple of months ago: left side treated percutaneously, right side treated with ureteroscope and suction - All tubes removed the week after surgery by nurse - Recent scan showed very small stones remaining in lower poles - History of horseshoe kidneys with chronic stone formation - History of chronic bacterial colonization and bladder irrigation with antibiotic solution - Denies current major issues - Denies headaches, tremor, or feeling unwell at present -Stone analysis was CaP ASSESSMENT/PLAN Assessment & Plan Recurrent UTI: - Chronic colonization with bacteria contributing to recurrent urinary tract infections, particularly in the context of horseshoe kidneys and inefficient urinary drainage. - Start acetohydroxamic acid (Lithostat) 1 tablet by mouth 3 times daily to reduce infection stone formation. Monitor with lab work 1-2 weeks after initiation to assess kidney function and blood counts. Continue bladder irrigation and catheterization as previously. Follow up in 4 months with updated x-ray and ultrasound imaging. - Risks and side effects: Discussed potential for seizures, lab abnormalities, headaches, and tremor associated with Lithostat. Patient informed and consented to start medication. Kidney stone: - Persistent formation of small renal calculi due to anatomical factors (horseshoe kidneys) and chronic bacterial colonization. Complete clearance may not be achievable. - Initiate acetohydroxamic acid (Lithostat) to reduce recurrence of infection stones. Schedule follow-up imaging (x-ray and ultrasound) in 4 months to monitor stone burden. Ordered lab work 1-2 weeksafter starting medication to monitor for adverse effects. - Risks and side effects: Discussed risk of seizures, headaches, tremor, and laboratory abnormalities with Lithostat. Patient informed and agreed to proceed. Potential insurance coverage issues discussed; patient advised to contact office if difficulties arise. Medications Current Outpatient Medications Medication Sig Dispense Refill Acetohydroxamic Acid (LITHOSTAT) 250 MG TABS Take 250 mg by mouth 3 times daily. 270 tablet 3 acetaminophen (TYLENOL) 325 MG tablet [...] daily per provider instructions. 900 mL 11 cyclobenzaprine (FLEXERIL) 5 MG tablet Take 5 mg by mouth 3 times daily as needed for muscle spasms. docusate sodium (COLACE) 100 MG capsule Take 100 mg by mouth every evening Elastic Bandages & Supports (PATEL ELASTIC BANDAGE 4) MISC Apply 1 each topically gentamicin (GARAMYCIN) 40 MG/ML injection 40 mg every 24 hours. indapamide (LOZOL) 1.25 MG tablet Take 1 tablet (1.25 mg) by mouth every morning. 90 tablet 3 levonorgestrel (MIRENA) 52 MG (20 mcg/day) IUD [...] mL 11 oxyBUTYnin (DITROPAN) 5 MG tablet Take 1 tablet (5 mg) by mouth 2 times daily. 180 tablet 2 polyethylene glycol (MIRALAX) 17 GM/Dose powder Take 17 g by mouth daily. 510 g 0 polyethylene glycol (MIRALAX) 17 GM/Dose powder See Instructions, 1-3 tsp as needed to maintain soft stools, # 527 g, 1 Refill(s), Maintenance, other potassium chloride marcie ER (KLOR-CON M10) 10 MEQ CR tablet Take 1 tablet (10 mEq) by mouth 2 times daily. 180 tablet 3 potassium chloride marcie ER (KLOR-CON M10) 10 MEQ CR tablet TAKE ONE TABLET BY MOUTH TWICE DAILY 90 tablet 0 potassium chloride ER (K-TAB) 20 MEQ CR tablet Take 1 tablet (20 mEq) by mouth daily 90 tablet 3 Saline Bacteriostatic (SODIUM CHLORIDE BACTERIOSTATIC) 0.9 % SOLN flush Irrigate with 30 mLs as directed At Bedtime for 31 doses 930 mL 11 sennosides (SENOKOT) 8.6 MG tablet Take 1 tablet by mouth 2 times daily as needed for constipation.100 tablet 0 sodium chloride 0.9%, bottle, 0.9 % irrigation Irrigate with 60 mLs as directed 2 times daily Instill 60 ml into bladder along with Gentamicin solution Vitamin D3 (VITAMIN D, CHOLECALCIFEROL,) 25 mcg (1000 units) tablet Take by mouth daily. Wound Dressings (MEDIHONEY CA ALGINATE 2X2) PADS Externally apply 1 each topically daily 10 each 0 Current Facility-Administered Medications Medication Dose Route Frequency Provider Last Rate Last Admin levonorgestrel (MIRENA) 52 MG (20 mcg/day) IUD 1 each 1 each Intrauterine See Admin Instructions 1 each at 12/14/24 1229 The following distinct labs were reviewed I personally reviewed all applicable laboratory data and went over findings with patient Significant for: CBC RESULTS: Recent Labs Lab Test 12/04/24 0722 12/03/24 0644 12/02/24 1503 09/13/24 1103 04/04/23 0657 WBC 11.2* 13.0* 11.5* 8.0 6.9 HGB 12.5 12.8 15.0 14.8 9.8* PLT 163 166 172 -- 190 BMP RESULTS: Recent Labs Lab Test 12/03/24 0644 12/02/24 1503 11/17/24 1023 09/13/24 1103 11/12/21 1342 02/12/20 0539 02/11/20 0544 02/10/20 0530 02/09/20 0555 NA 135 136 140 141 < > 139 140 141 142 POTASSIUM 3.5 4.2 5.0 4.4 < > 3.6 3.4 3.7 3.6 CHLORIDE 101 102 106 103 < > 109 112* 115* 117* CO2 20* 20* 22 26 < > 21 18* 18* 17* ANIONGAP 14 14 12 12 < > 9 10 8 8 GLC 110* 107* 93 93 < > 86 94 97 58* BUN 16.7 14.7 27.2* 21.0* < > 11 12 8 9 CR 0.49* 0.38* 0.42* 0.51 < > 0.43* 0.49* 0.47* 0.43* GFRESTIMATED [...] displayed. CALCIUM RESULTS: Recent Labs Lab Test 12/03/24 0644 12/02/24 1503 11/17/24 1023 09/13/24 1103 SHIRA 8.3* 8.7* 9.8 9.6 PTH RESULTS: No results for input(s): PTHI in the last 87424 hours. HGB A1C RESULTS: No results found for: A1C UA RESULTS: Recent Labs Lab Test 06/25/24 [...] or performed during the hospital encounter of 01/18/25 CT Abdomen Pelvis w/o Contrast Narrative EXAM: CT ABDOMEN PELVIS W/O CONTRAST LOCATION: [facility] DATE: 01/18/2025 INDICATION: Bilateral nephrolithiasis COMPARISON: [...] No apparent mass or bile duct dilatation. Nocalcified gallstones. PANCREAS: Normal. SPLEEN: Normal. ADRENAL GLANDS: Normal. 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 Lower poles of the kidneys appear to be fusedin the midline abdomen anterior to the spine. There is mild bilateral hydronephrosis. Mild corticalthinning of the left cortex. Several nonobstructing calcifications are identified bilaterally. There are approximately 3-4 calcifications in both rightand left portions of the partially kidney, largest in the right lower pole measuring 9 mm. BOWEL: Normal. LYMPH NODES: Normal. VASCULATURE: Normal. PELVIC ORGANS: IUD in place. No pelvic mass or adenopathy. MUSCULOSKELETAL: There are stable postoperative changes of thoracolumbar posterior spinal fixation. Impression IMPRESSION: 1. Nephrolithiasis: Small nonobstructing stones bilaterally. 2. Mild bilateral hydronephrosis. 3. Partially kidney anomaly. 4. Ventricular peritoneal shunt catheter in place. 5. Thoracolumbar posterior spinal fixation. CC: Heladio Willoughby documented in this encounter Nursing Notes * Claudia Barron - 01/25/2025 10:45 AM CDT Current patient location: [address] [place] [address] Is the patient currently in the state of [place]? YES Visit mode: VIDEO If the visit is dropped, the patient can be reconnected by:VIDEO VISIT: Text to cell phone: Telephone Information: [employer] # - [phone] Will anyone else be joining the visit? YES: How would they like to receive their invitation? Text to cell phone: [employer] # - [phone] (If patient encounters technical issues they should call [phone]) Are changes needed to the allergy or medication list? Pt stated no med changes Are refills needed on medications prescribed by this physician? Discuss with provider Rooming Documentation: Not applicable Reason for visit: RECHECK Claudia Barron VVF Pts legal guardian completed check in. documented in this encounter Plan of Treatment Upcoming Encounters Date Type Department Care Team (Late st Contact Info) Description 03/03/2025 9:00 AM CDT Office Visit [facility] [address] 3rd [place] [phone] Jadon Floyd MD [address] [place] [address] 03/23/2025 12:45 PM CDT Appointment [facility] [address] [place] [phone] Cayden Bejarano MD [address] [place] [address] [address] [place] [address] 03/23/2025 1:30 PM CDT Hospital Encounter [facility] [address] [place] [phone] Cayden Bejarano MD [address] [place], [place] [address] [place] [address] 03/25/2025 10:20 AM CDT Virtual Visit [facility] [place] [address] [place], [place] [address] [place] [address] Cayden Bejarano MD [address] [place] [address] [address] [place] [address] 04/04/2025 12:00 PM JOB COACH Office Visit [facility] [address] [phone] Sugey Mccoy, NESTOR AIRCRAFT ENGINE MECHANIC SUPERVISOR [address] [place] [address] [place] [address] [phone] 05/30/2025 10:20 AM JOB COACH Appointment [facility] [address] [place] [phone] Carlos Joyner MD [address] [place] [address] 05/31/2025 2:00 PM JOB COACH Virtual Visit [facility] [address] 4[address] [place] [phone] Carlos Joyner MD [address] [place] [address] [phone] 07/25/2025 11:00 AM JOB COACH Office Visit [facility] [address] [place] [address] [place] [address] [place] [address] Scheduled Orders Name Type Priority Associated Diagnoses Orde r Schedule XR Abdomen 2 Views Imaging Routine Recurrent UTI Kidney stone Expected: 05/27/2025 (Approximate), Expires: 01/25/2026 Renal Complete Non-Vascular Imaging Routine Recurrent UTI Kidney stone Expected: 05/27/2025 (Approximate), Expires: 01/25/2026 documented as of this encounter Results * Hepatic panel (Albumin, ALT, AST, Bili, Alk Phos, TP) (02/21/2025 11:26 AM CDT) Protein Total 6.9 6.4 - 8.3 g/dL 02/21/2025 12:21 PM CDT [facility] Albumin 3.7 3.5 - 5.2 g/dL 02/21/2025 12:21 PM CDT [facility] Bilirubin Total 0.3 <=1.2 mg/dL 02/21/2025 12:21 PM CDT [facility] Alkaline Phosphatase 85 40 - 150 U/L 02/21/2025 12:21 PM CDT [facility] AST 12 0 - 45 U/L 02/21/2025 12:21 PM CDT [facility] ALT 11 0 - 50 U/L 02/21/2025 12:21 PM CDT [facility] Bilirubin Direct 0.09 0.00 - 0.30 mg/dL 02/21/2025 12:21 PM CDT [facility] Comment:As of 24, refer ence ranges and trending lines may vary depending on the testing location. Blood STRUCTURE OF RIGHT UPPER LIMB / Unknown Venipuncture / Unknown 02/21/2025 11:26 AM CDT 02/21/2025 11:27 AM CDT Carlos Joyner MD LAB - BLOOD ORDERABLES Fin al Result Performing Organization Address [facility]/ZIP Co de Phone Number [facility] [address] (1st floor, no room number) [place] [address] * Reticulocyte count (02/21/2025 11:26 AM CDT) % Reticulocyte 1.82 0.50 - 2.00 % 02/21/2025 12:13 PM CDT [facility] Absolute Reticulocyte 0.0865 0.0250 - 0.0950 10e6/uL 02/21/2025 12:13 PM CDT [facility] Blood STRUCTURE OF RIGHT UPPER LIMB / Unknown Venipuncture / Unknown 02/21/2025 11:26 AM CDT 02/21/2025 11:27 AM CDT Carlos Joyner MD LAB - BLOOD ORDERABLES Fin al Result [facility] [address] (1st floor, no room number) [place] [address] * (ABNORMAL) Basic metabolic panel (Ca, Cl, CO2, Creat, Gluc, K, Na, BUN) (02/21/2025 11:26 AM CDT) Sodium 140 135 - 145 mmol/L 02/21/2025 12:21 PM CDT LABORATORY Potassium 3.9 3.4 - 5.3 mmol/L 02/21/2025 12:21 PM CDT [facility]OR[facility] Chloride 104 98 - 107 mmol/L 02/21/2025 12:21 PM CDT LABOR[facility]ORY Carbon Dioxide (CO2) 24 22 - 29 mmol/L 02/21/2025 12:21 PM CDT [facility] Anion Gap 12 7 - 15 mmol/L 02/21/2025 12:21 PM CDT LABORATORY Urea Nitrogen 17.6 6.0 - 20.0 mg/dL 02/21/2025 12:21 PM CDT LABORATORY Creatinine 0.48(L) 0.51 - 0.95 mg/dL 02/21/2025 12:21 PM CDT LABORATORY GFR Estimate >90 >60 mL/min/1.7 3m2 02/21/2025 12:21 PM CDT [facility] Comment:eGFR calculated usin g 2020 CKD-EPI equation. Calcium 9.2 8.8 - 10.4 mg/dL 02/21/2025 12:21 PM CDT LABORATORY Glucose 91 70 - 99 mg/dL 02/21/2025 12:21 PM CDT LABORATORY Blood STRUCTURE OF RIGHT UPPER LIMB / Unknown Venipuncture / Unknown 02/21/2025 11:26 AM CDT 02/21/2025 11:27 AM CDT Carlos Joyner MD LAB - BLOOD ORDERABLES Fin al Result LABORATORY [facility] [address] Lab (1st floor, no room number) [place] [address], [facility] documented in this encounter Visit Diagnoses Diagnosis Recurrent UTI- Primary Urinary tract infection, site not specified Kidney stone Calculus of kidney documented in this encounter Care Teams Jet Wiper Relationship Specialty [place] [address] [place] [address] PCP - General 03/05/23 Carlos Joyner MD [address] [place] [address] Urology 12/09/19 Jadon Murray MD [facility] [address] [facility] [address] [place] [address] Referring Physician Pediatric Surgery 12/09/19 Maru Villagomez, RN Registered Nurse 12/10/19 Ang Slade MD [address] [facility] [address] [place], [place] [phone] Urology 04/24/20 Carlos Joyner MD [address] [place] [address] [phone] Assigned Surgical Provider 12/24/20 Ang Slade MD [address] [facility] [address] [place], [place] [address] Urology 12/18/22 Lakshmi Wilhelm PA-C [address] [place] [address] [phone] Physician Nuclear Station Operator Urology 02/03/23 [place] [address] [place] [address] Assigned PCP 02/06/23 Alissa Perez PA-C [address] [place] [address] 574695 Physician Nuclear Station Operator Surgery 09/04/23 Lakshmi Wilhelm PA-C [address] [place] [address] Physician Nuclear Station Operator Urology 09/16/23 Aidee Valero PA-C [address] [place] [address] Assigned Musculoskeletal Provider 04/17/24 02/14/25 Carlos Joyner MD [address] [place] [address] Urology 01/26/25 Tanisha Marlow [facility] [address] 03/30/24 documented as of this encounter
--- OUTSIDE RECORDS SUMMARY | 2025-01-25 10:45 | XMS_ITS | Encounter Summary ---
Author Organization [facility] Address [address] [place] [address] Care Team Providers Care Assistant Farm Operations Manager Name Role Phone Carlos Joyner MD Unavailable [phone] Jadon Murray MD Unavailable [phone] Maru Villagomez RN Unavailable Unavailable Ang Slade MD Unavailable [phone] Carlos Joyner MD Unavailable [phone] Ang Slade MD Unavailable [phone] Lakshmi Wilhelm-C Unavailable [phone] Heladio Willoughby MD Primary Care Provider [phone] Heladio Willoughby MD Unavailable Alissa Perez PA-C Unavailable [phone] Lakshmi Wilhelm-Juan A Unavailable [phone] Aidee Valero PA-C Unavailable [phone] Carlos Joyner MD Unavailable [phone] Reason for Referral * Diagnostic Imaging Ultrasound (Routine) - Authorized Specialty Diagnoses / Procedures Referred By Contabran t Referred To Contact Radiology. Diagnoses Recurrent UTI Kidney stone Procedures US Renal Complete Non-Vascular Carlos Joyner MD [address] [place] [address] Phone: tel: fax: Referral ID Status Reason Start Date Expiration Date V isits Requested Visits Authorized [id number] Authorized 01/25/2025 01/25/2026 1 1 * Diagnostic Imaging XR (Routine) - Authorized Specialty Diagnoses / Procedures Referred By Contac t Referred To Contact Radiology. Diagnoses Recurrent UTI Kidney stone Procedures XR Abdomen 2 Views Carlos Joyner MD [address] [place] [address] Phone: tel: fax: Referral ID Status Reason Start Date Expiration Date V isits Requested Visits Authorized [id number] Authorized 01/25/2025 01/25/2026 1 1 Reason for Visit * Reason Comments RECHECK Encounter Details Date Type Department Care Team (Late st Contact Info) Description 01/25/2025 10:45 AM CDT Virtual Visit [facility] [address] [place] [phone] Carlos Joyner MD [address] [place] [address] [phone] Recurrent UTI (Primary Dx); Kidney stone Social [...] 07/16/2024 Attends [employer] Not on file 07/16 Active Member of Clubs or Organizations Not on f ile 07/16/2024 Attends Club or Organization Meetings Not on antelmo e 07/16/2024 Marital Status Not on file 07/16/2024 PHQ-2 Answer Date Recorded PHQ-2 Score 0 09/13/2024 [facility] - Occupational [...] location): Off-site Platform used for Video Visit: [facility] UROLOGY OUTPATIENT VISIT CHIEF COMPLAINT Kidney Stones [...] results for input(s): PTHI in the last 75010 hours. HGB A1C RESULTS: No results found [...] EXAM: CT ABDOMEN PELVIS W/O CONTRAST LOCATION: [facility] DATE: 01/18/2025 INDICATION: Bilateral nephrolithiasis COMPARISON: [...] 01/25/2025 10:45 AM CDT Current patient location: [address] [place] [address] Is the patient currently in the state of [place]? YES Visit mode: VIDEO If the visit is dropped, the patient can be reconnected by:VIDEO VISIT: Text to cell phone: Telephone Information: [employer] # - [phone] Will anyone else be joining the visit? YES: How would they like to receive their invitation? Text to cell phone: [employer] # - [phone] (If patient encounters technical issues they should call [phone]) Are changes needed to the allergy [...] Description 03/03/2025 9:00 AM CDT Office Visit [facility] [address] 3rd [place] [address] Jadon Floyd MD [address] [place] [address] 03/23/2025 12:[address] [facility] [address] [facility] [address] [place] [address] Cayden Bejarano MD [address] [place] [address] [address] [place] [address] 03/23/2025 1:30 PM CDT Hospital Encounter [facility] [address] [place] [address] Cayden Bejarano MD [address] [place], [place] [address] [place] [address] 03/25/2025 10:20 AM CDT Virtual Visit [facility] [place] [address] [place], [place] [address] [place] [address] Cayden Bejarano MD [address] [place] [address] [address] [place] [address] 04/04/2025 12:00 PM PETROPHYSICAL ENGINEER Office Visit [facility] [address] [phone] Sugey Mccoy, NESTOR BUSINESS DEVELOPMENT CONSULTANT [address] [place] [address] [place] [address] 043194 05/30/2025 10:20 AM PETROPHYSICAL ENGINEER Appointment [facility] [address] [facility] [address] [place] [phone] Carlos Joyner MD [address] [place] [address] 05/31/2025 2:00 PM PETROPHYSICAL ENGINEER Virtual Visit [facility] [address] 4th [place] [address] Carlos Joyner MD [address] [place] [address] [phone] 07/25/2025 11:00 AM PETROPHYSICAL ENGINEER Office Visit [facility] [address] [place] [address] [place] [address] [place] [address] Scheduled Orders Name Type Priority [...] ORDERABLES Fin al Result Performing Organization Address [facility]/ZIP Co de Phone Number [facility] [address] (1st floor, no room number) [place] [address] * Reticulocyte count (02/21/2025 11:26 [...] LAB - BLOOD ORDERABLES Fin al Result [facility] [address] (1st floor, no room number) [place] [address] * (ABNORMAL) Basic metabolic panel [...] - BLOOD ORDERABLES Fin al Result LABORATORY [facility] Lab [address] Lab (1st floor, no room number) [place] [address], [facility] documented in this encounter Visit Diagnoses Diagnosis Recurrent UTI- Primary Urinary tract infection, site not specified Kidney stone Calculus of kidney documented in this encounter Care Teams Assistant Farm Operations Manager Relationship Specialty [place] [address] [place] [address] PCP - General 03/05/23 Carlos Joyner MD [address] [place] [address] Urology 12/09/19 Jadon Murray MD [facility] [address] [facility] 550 [place] [address] Referring Physician Pediatric Surgery 12/09/19 Maru Villagomez, RN Registered Nurse 12/10/19 Ang Slade MD 420 [facility] [address] [place], [place] [address] Urology 04/24/20 Carlos Joyner MD [address] [place] [address] [phone] Assigned Surgical Provider 12/24/20 Ang Salde MD 420 [facility] [address] [place], [place] 7582[address] Urology 12/18/22 Lakshmi Wilhelm PA-C [address] [place] [address] 655925 Physician Bottoming Room Supervisor Urology 02/03/23 [place] [address] [place] [address] Assigned PCP 02/06/23 Alissa Perez PA-C [address] [place] [address] 781365 Physician Bottoming Room Supervisor Surgery 09/04/23 Lakshmi Wilhelm PA-C [address] [place] [address] Physician Bottoming Room Supervisor Urology 09/16/23 Aidee Valero PA-C [address] [place] [address] Assigned Musculoskeletal Provider 04/17/24 02/14/25 Carlos Joyner MD [address] [place] [address] Urology 01/26/25 Tanisha Marlow [facility]0 [facility] [address] 03/30/24 documented as of this encounter
--- OUTSIDE RECORDS SUMMARY | 2025-01-28 09:30 | XMS_ITS | Encounter Summary ---
Author Organization [place] Address [address] [place] [address]. [place] [address] Care Team Providers Care Continuous Vulcanizing Machine Operator Name Role Phone Carlos Joyner MD Unavailable [phone] Jadon Murray MD Unavailable [phone] Maru Villagomez RN Unavailable Unavailable Ang Slade MD Unavailable [phone] Carlos Joyner MD Unavailable [phone] Ang Slade MD Unavailable [phone] Lakshmi Wilhelm-C Unavailable [phone] Heladio Willoughby MD Primary Care Provider [phone] Heladio Willoughby MD Unavailable Alissa Perez PA-C Unavailable [phone] Lakshmi Wilhelm-C Unavailable [phone] Aidee Valero PA-C Unavailable [phone] Carlos Joyner MD Unavailable [phone] Reason for Visit * Reason Comments Follow Up Encounter Details Date Type Department Care Team (Late st Contact Info) Description 01/28/2025 9:30 AM CDT Office Visit [facility] [address] [place] [address] [place] [address] [place] [address] Visit for wound check (Primary Dx); Pressure injury of back, stage 2 (H); Paraplegia (H); Right wrist pain Social History Tobacco Use Types Packs/Day Years Used Date Smoking Tobacco: Never Smokeless Tobacco: Never Comments:N/A Alcohol Use Standard Drinks/Week Comments Never [...] Answer Date Recorded PHQ-2 Score 0 09/13/2024 [facility] - Occupational [...] Sign Reading Time Taken Comments Blood Pressure 131/84 01/28/2025 9:26 AM CDT Pulse 99 01/28/2025 9:26 AM CDT Temperature 36.7 C (98.1 F) 01/28/2025 9:26 AM CDT Respiratory Rate 15 01/28/2025 9:26 AM CDT Oxygen Saturation 95% 01/28/2025 9:26 AM CDT Inhaled Oxygen Concentration - - Weight 70.3 kg (155 lb) 01/28/2025 9:26 AM CDT Height 157.5 cm (5' 2) 01/28/2025 9:26 AM CDT Body Mass Index 28.35 01/28/2025 9:26 AM CDT documented in this encounter Progress Notes * Heladio Willoughby MD - 01/28/2025 9:30 AM CDT Images from the original note were not included. Assessment & Plan Visit for wound check Pressure injury of back, stage 2 (H) Paraplegia (H) Wound improving, see image. No signs of infection. In process of setting up appt with PM&R. Ok to RTC prn. Right wrist pain Ice, acetaminophen, brace. Upcoming appt with Ortho next week, BMI Estimated body mass index is 28.35 kg/m?? as calculated from the following: Height as of this encounter: 1.575 m (5' 2). Weight as of this encounter: 70.3 kg (155 lb). Follow up in 6 months for annual physical, earlier as needed Heladio Willoughby MD [facility] 01/28/2025 Yared Marina is a 24 year old, presenting for the following health issues: Follow Up 01/28/2025 9:25 AM Additional Questions Roomed by MR Accompanied by Caregivers History of Present Illness Reason for visit: [...] per week. She is taking medications regularly. Pressure wound update Wound is getting smaller according to caregiver No purulence, no drainage, no significant erythema, warmth, swelling. Trying to use the fabric between the skin fold but does fall out often. Is in the process of setting up PM&R visit. RT Wrist pain Ulnar and radial aspect R wrist pain. Has upcoming appt with Ortho on Friday, next week Working with PT/OT who is recommending specific brace. No obvious swelling, redness. Hx of injury several years ago at [place] when her wheelchair tipped and she braced herself with herright hand. Objective BP 131/84 Pulse 99 Temp 98.1 ??F (36.7 ??C) (Oral) Resp 15 Ht 1.575 m (5' 2) Wt 70.3 kg (155 lb) LMP (LMP Unknown) SpO2 95% BMI 28.35 kg/m?? Body mass index is 28.35 kg/m??. Physical Exam GENERAL: healthy, alert and no distress HEAD: Normocephalic, atraumatic. EYES: Normal conjunctivae, sclera. RESP: Normal respiratory effort. MSK: no gross musculoskeletal defects noted. R WRIST: No gross abnormalities. No significant edema,erythema, warmth. Normal active ROM. TTP diffusely over dorsal wrist. SKIN: [id number] wound with exposed dermis appreciated in left thoracic back within crease of skin fold. Surrounded by minimal erythema. Maceration resolved. No purulence, warmth, edema. Seems improved compared to last visit (See image). .NEURO: CNII-XII grossly intact. No focal deficits. PSYCH: Groomed, dressed appropriately for weather. Signed Electronically by: Heladio Willoughby MD documented in this encounter Plan of Treatment Upcoming Encounters Date Type Department Care Team (Late st Contact Info) Description 03/03/2025 9:00 AM CDT Office Visit [facility] [address] [phone] Jadon Floyd MD [address] [place] [address] 03/23/2025 12:45 PM CDT Appointment [facility] [place] [facility] [address] [facility] [address] [place] [address] Cayden Bejarano MD [address] [place], [place] [address] [place] [address] 03/23/2025 1:30 PM CDT Hospital Encounter [facility] [address] [place] [address] Cayden Bejarano [place] [address] [place] [address] 03/25/2025 10:20 AM CDT Virtual Visit [facility] [place] [address] [place] [address] Drive [address] [place] [address] Cayden Bejarano MD [address] [place], [place] [address] [place] [address] 04/04/2025 12:00 PM XM1 TANK DRIVER Office Visit [facility] [place] [address] [place] [address] Darius Elvirginia JaelNESTOR CNP [address] [place] [address] 05/30/2025 10:20 AM XM1 TANK DRIVER Appointment [facility] [address] [place] [address] aCrlos Joyner MD [address] [place] [address] 2623[address] 05/31/2025 2:00 PM XM1 TANK DRIVER Virtual Visit [facility] [address] 4th [place] [address] Carlos Joyner MD [address] [place] [address]58[address] 07/25/2025 11:00 AM XM1 TANK DRIVER Office Visit [facility] [address] [place] [address] [place] [address] [place] [address] documented as of this encounter Visit Diagnoses Diagnosis Visit for wound check- Primary Encounter for other specified aftercare Pressure injury of back, stage 2 (H) Paraplegia (H) Paraplegia Right wrist pain Pain in joint, forearm documented in this encounter Care Teams Continuous Vulcanizing Machine Operator Relationship Specialty Start [place] [address] [place] [address] PCP - General 03/05/23 Carlos Joyner MD [address] [place] [address] Urology 12/09/19 Jadon Murray MD [facility] [address] [facility] [address] [place] [address] Referring Physician Pediatric Surgery 12/09/19 Maru Villagomez, RN Registered Nurse 12/10/19 Ang Slade MD 420 [facility] 394 [place], [place] [address] Urology 04/24/20 Carlos Joyner MD [address] [place] [address] 260185 Assigned Surgical Provider 12/24/20 Ang Slade MD 420 [facility] 394 [place], [place] 9[address] Urology 12/18/22 Lakshmi Wilhelm PA-C [address] [place] [address] 387725 Physician Roving Winder Urology 02/03/23 [place] [address] [place] [address] Assigned PCP 02/06/23 Alissa Perez PA-C [address] [place] [address] 708485 Physician Roving Winder Surgery 09/04/23 Lakshmi Wilhelm PA-C [address] [place] [address] Physician Roving Winder Urology 09/16/23 Aidee Valero PA-C 909 [place] [address] Assigned Musculoskeletal Provider 04/17/24 02/14/25 Carlos Joyner MD 909 [place] [address] Urology 01/26/25 Tanisha Marlow [facility] [address] 03/30/24 documented as of this encounter
--- OUTSIDE RECORDS SUMMARY | 2025-01-28 09:30 | XMS_ITS | Encounter Summary ---
Author Organization [place] Address [address] [place] [address]. [place] [address] Care Team Providers Care Cook Apprentice Pastry Name Role Phone Carlos Joyner MD Unavailable [phone] Jadon Murray MD Unavailable [phone] Maru Villagomez RN Unavailable Unavailable Ang Slade MD Unavailable [phone] Carlos Joyner MD Unavailable [phone] Ang Slade MD Unavailable [phone] Lakshmi Wilhelm-C Unavailable [phone] Heladio Willoughby MD Primary Care Provider [phone] Heladio Willoughby MD Unavailable Alissa Perez PA-C Unavailable [phone] Lakshmi Wilhelm-C Unavailable [phone] Aidee Valero PA-C Unavailable [phone] Carlos Joyner MD Unavailable [phone] Reason for Visit * Reason Comments Follow Up Encounter Details Date Type Department Care Team (Late st Contact Info) Description 01/28/2025 9:30 AM CDT Office Visit [facility] [address] [place] [address] [place] [address] [place] [address] Visit for wound check (Primary Dx); Pressure [...] than three times a week 07/16/2024 Attends Anabaptism Services Not on file 07/16 Active Member of Clubs or Organizations Not on f ile 07/16/2024 Attends Club or Organization Meetings Not on antelmo e 07/16/2024 Marital Status Not on file 07/16/2024 PHQ-2 Answer Date Recorded PHQ-2 Score 0 09/13/2024 [facility] Occupat ional Health - [...] physical, earlier as needed Heladio Willoughby MD [facility] 01/28/2025 Yared Marina is a [...] Hx of injury several years ago at [place] when her wheelchair tipped and she braced [...] ROM. TTP diffusely over dorsal wrist. SKIN: [id number] wound with exposed dermis appreciated in left [...] [facility] [address] [phone] Jadon Floyd MD [address] [place] [address] 03/23/2025 12:45 PM CDT Appointment [facility] [place] [facility] [address] [place] [address] Cayden Bejarano MD [address] [place], [place] [address] [place] [address] 03/23/2025 1:30 PM CDT Hospital Encounter [facility] [address] [place] [address] Cayden Bejarano [place] [address] [place] [address] 03/25/2025 10:20 AM CDT Virtual Visit [facility] [place] [address] [place] [address] Drive [address] [place] [address] Cayden Bejarano MD [address] [place], [place] [address] [place] [address] 04/04/2025 12:00 PM REMELT FURNACE EXPEDITER Office Visit [facility] [place] [address] [place] [address] Darius Elvirginia JaelNESTOR CNP [address] [place] [address] 05/30/2025 10:20 AM REMELT FURNACE EXPEDITER Appointment [facility] [address] [place] [address] Carlos Joyner MD [address] [place] [address] 131285 05/31/2025 2:00 PM REMELT FURNACE EXPEDITER Virtual Visit [facility] [address] 4th [place] [address] Carlos Joyner MD [address] [place] [address] 568635 07/25/2025 11:00 AM REMELT FURNACE EXPEDITER Office Visit [facility] [address] [place] [address] [place] [address] [place] [address] documented as of this encounter Visit Diagnoses Diagnosis Visit for wound check- Primary Encounter for other specified aftercare Pressure injury of back, stage 2 (H) Paraplegia (H) Paraplegia Right wrist pain Pain in joint, forearm documented in this encounter Care Teams Cook Apprentice Pastry Relationship Specialty Start [place] [address] [place] [address] PCP - General 03/05/23 Carlos Joyner MD [address] [place] [address] Urology 12/09/19 Jadon Murray MD [facility] [address] [facility] [address] [place] [address] Referring Physician Pediatric Surgery 12/09/19 Maru Villagomez, RN Registered Nurse 12/10/19 Ang Slade MD 420 [facility] 394 [place], [place] 3824[address] Urology 04/24/20 Carlos Joyner MD [address] [place] [address] 510405 Assigned Surgical Provider 12/24/20 Ang Slade MD 420 [facility] 394 [place], [place] 045[address] Urology 12/18/22 Lakshmi Wilhelm PA-C [address] [place] [address] 735135 Physician Can Repairer Urology 02/03/23 [place] [address] [place] [address] Assigned PCP 02/06/23 Alissa Perez PA-C [address] [place] [address] 079685 Physician Can Repairer Surgery 09/04/23 Lakshmi Wilhelm PA-C [address] [place] [address] Physician Can Repairer Urology 09/16/23 Aidee Valero PA-C 909 [place] [address] Assigned Musculoskeletal Provider 04/17/24 02/14/25 Carlos Joyner MD 909 [place] [address] Urology 01/26/25 Tanisha Marlow [facility]0 [facility] [address] 03/30/24 documented as of this encounter
--- OUTSIDE RECORDS SUMMARY | 2025-02-01 10:00 | XMS_ITS | Encounter Summary ---
Author Organization [place] Address [address] [place] [address] Care Team Providers Care Sales Promotion Coordinator Name Role Phone Carlos Joyner MD Unavailable + [phone] Jadon Murray MD Unavailable [phone] Maru Villagomez RN Unavailable Unavailable Ang Slade MD Unavailable [phone] Carlos Joyner MD Unavailable + [phone] Ang Slade MD Unavailable + [phone] Lakshmi Wilhelm-C Unavailable [phone] Heladio Willoughby MD Primary Care Provider [phone] Heladio Willoughby MD Unavailable Alissa Perez PA-C Unavailable [phone] [facility] Unavailable [phone] Aidee Valero PA-C Unavailable [phone] Carlos Joyner MD Unavailable + [phone] Jadon Floyd MD Unavailable [phone] Reason for Referral * Occupational Therapy (Routine: Next available opening) - Pending Review Specialty Diagnoses / Procedures Referred By Contabran t Referred To Contact Diagnoses Right wrist pain 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 If you don't hear from a textile machinery sales representative within 2 business days, please call . Additional Information: mold custom splint as well Comments Please be aware that coverage of these services is subject to the terms and limitations of your health insurance plan. Call member services at your health plan with any benefit or coverage questions. [employer] will call you to coordinate your care as prescribed by your provider. If you don't hear from a textile machinery sales representative within 2 business days, please call . * Diagnostic Imaging MRI (Routine) - Authorized Specialty Diagnoses / Procedures Referred By Charli sylvester Referred To Contact Radiology. 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 Diagnoses Right wrist pain Procedures XR Wrist Right G/E 3 [place] [address] [address] [place] [address] Phone: tel: fax: Referral ID Status Reason Start Date Expiration Date Visits Re quested Visits Authorized [id number] Closed 02/01/2025 02/01/2026 1 1 Reason for Visit * Reason Comments Pain * Consultation (Routine) - Pending Review Specialty Diagnoses / Procedures Referred By Charli sylvester Referred To Contact Diagnoses [place] [address] [place] [address] Phone: tel: fax: Referral ID Status Reason Start Date Expiration Date V isits Requested Visits Authorized [id number] Pending Review 01/19/2025 01/19/2026 1 1 Encounter Details Date Type Department Care Team (Late st Contact Info) Description 02/01/2025 10:00 AM CDT Office Visit [facility] [place] [address] [facility] [address] [place] [address] [place] [address] [place] [id number] [place] [address] [address] [place] [address] Injury of triangular fibrocartilage complex (TFCC) of [...] Answer Date Recorded PHQ-2 Score 0 09/13/2024 [facility] - [...] MRI has been ordered. You may call [phone] to schedule over the phone. Please call my office to schedule a video visit 2 days after your MRI is complete to discuss results and next step treatment options. -Patient will start formal hand therapy and home exercise program. They can also digital content marketing manager a custom splint to wear to help with her pain while she is transferring from her wheelchair -Call direct clinic number [[phone]] at any time with questions or concerns. Cayden Bejarano MD [facility] Orth[facility]ics and Sports Medicine [facility] documented in this encounter Progress Notes [...] MRI has been ordered. You may call [phone] to schedule over the phone. Please call my office to schedule a video visit 2 days after your MRI is complete to discuss results and next step treatment options. -Patient will start formal hand therapy and home exercise program. They can also digital content marketing manager a custom splint to wear to help with her pain while she is transferring from her wheelchair -Call direct clinic number [[phone]] at any time with questions or concerns. Cayden Bejarano MD [facility] Orth[facility]ics and Sports Medicine [facility] ----- SUBJECTIVE Laina Escudero is a/an 24 year old Left handed female who is seen in consultation at the request of Heladio Willoughby M.D. for evaluation of right wrist pain. The patient was recently seen by Family Medicine and mentioned righ wrist painThe patient is seen with staff, Helen and staff from the company [email or web address]. Onset: Intermittent for several years. Patient states [...] in hospitality or with animals. Bowling, basketball, bocce ball and Track Past Medical History: Diagnosis Date Acute cystitis Acute kidney failure Acute kidney failure, unspecified 02/10/2020 Capsulitis left shoulder Cerebral infarction (H) Decubitus ulcer Depressive disorder History of brain shunt Horseshoe kidney Hydrocephalus (H) vp product shunt 01/30/2021 Kidney stone Meningomyelocele (H) Neurogenic [...] min Stress: No Stress Concern Present (07/16/2024) [place] [employer] Occupational Health - Occupational Stress Questionnaire [...] pain, ulnar deviation limited by pain Strength: Sales And Marketing Administrator strength limited by pain flexion limited by pain extension limited by pain. Normal pinch strength. Special Tests: Positive: tfc grind Negative: Mary's, CMC grind, thenar eminence wasting, hypothenar eminence wasting. Independent visualization of the below image: Recent Results (from the past 24 hours) XR Wrist Right G/E 3 Views Narrative No acute fracture, dislocation or osseous abnormalities. Caydne Bejarano MD [facility] documented in this encounter Plan of Treatment Upcoming Encounters Date Type Department Care Team (Late st Contact Info) Description 03/03/2025 9:00 AM CDT Office Visit [facility] Rehabilitation [facility] [address] 3rd [place] [phone] Jadon Floyd MD [address] [place] [address] 03/23/2025 12:45 PM CDT Appointment [facility] Imaging [address] [place] [phone] [place] [address] [place] [address] 03/23/2025 1:30 PM CDT Hospital Encounter [facility] [address] [facility] [address] [place] [phone] Cayden Bejarano MD [address] [place] [address] [address] [place] [address] 03/25/2025 10:20 AM CDT Virtual Visit [facility] [place] [address] [place] [address] [place] [address] [place] [address] 04/04/2025 12:00 PM FRUIT II FARMWORKER Office Visit [facility] [address] [phone] Sugey Mccoy, INDEPENDENT VIDEO PRODUCER [address] [address] 05/30/2025 10:20 AM FRUIT II FARMWORKER Appointment [facility] [address] [facility] [address] [place] [phone] Carlos Joyner MD [address] [place] [address] 05/31/2025 2:00 PM FRUIT II FARMWORKER Virtual Visit [facility] [address] 4th [place] [phone] Carlos Joyner MD [address] [place] [address] 07/25/2025 11:00 AM FRUIT II FARMWORKER Office Visit [facility] [address] [place] [address] [place] [address] [place], [place] [phone] Scheduled Orders Name Type Priority Associated Diagnoses [...] forearm documented in this encounter Care Teams Sales Promotion Coordinator Relationship Specialty Start [place] [address] [facility] [place] [address] PCP - General 03/05/23 Carlos Joyner MD [address] [place] [address] [id number] Urology 12/09/19 Jadon Murray MD [facility] [address] [facility] [address] [place], [place] [phone] Referring Physician Pediatric Surgery 12/09/19 Maru Villagomez, RN Registered Nurse 12/10/19 Ang Slade MD [address] [place] [address] 558125 Urology 04/24/20 Carlos Joyner MD [address] [place] [address] 303105 Assigned Surgical Provider 12/24/20 Ang Slade MD [address] [address] Urology 12/18/22 Lakshmi Wilhelm PA-C [address] [place] [address] Physician Bead Flipper Urology 02/03/23 [place] [address] [place] [address] Assigned PCP 02/06/23 Alissa Perez PA-C [address] [place] [address] Physician Bead Flipper Surgery 09/04/23 Lakshmi Wilhelm PA-C [address] [place] [address] Physician Bead Flipper Urology 09/16/23 Aidee Valero PA-C [address] [place] [address] Assigned Musculoskeletal Provider 04/17/24 02/14/25 Carlos Joyner MD [address] [place] [address] Urology 01/26/25 Jadon Floyd MD [address] [place] [address] Physician Physical Medicine and Rehabilitation 01/31/25 Tanisha Marlow 4[address] [facility] [address] 03/30/24 documented as of this encounter
--- OUTSIDE RECORDS SUMMARY | 2025-02-01 10:00 | XMS_ITS | Encounter Summary ---
Author Organization [facility] Address [address] [place] [address] Care Team Providers Care Digital Communications Manager Name Role Phone Carlos Joyner MD Unavailable + [phone] Jadon Murray MD Unavailable [phone] Maru Villagomez RN Unavailable Unavailable Ang Slade MD Unavailable +[phone] Carlos Joyner MD Unavailable + [phone] Ang Slade MD Unavailable + [phone] Lakshmi Wilhelm-C Unavailable [phone] Heladio Willoughby MD Primary Care Provider [phone] Heladio Willoughby MD Unavailable Alissa Perez PA-C Unavailable [phone] [facility] care[facility] PA-C Unavailable +- [phone] Aidee aVlero PA-C Unavailable [phone] Carlos Joyner MD Unavailable + [phone] Jadon Floyd MD Unavailable [phone] Reason for Referral * Occupational Therapy (Routine: Next available opening) - Pending Review Specialty Diagnoses / Procedures Referred By Contabran t Referred To Contact Diagnoses Right wrist pain 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 If you don't hear from a direct sales representative within 2 business days, please call . Additional Information: mold custom splint as well Comments Please be aware that coverage of these services is subject to the terms and limitations of your health insurance plan. Call member services at your health plan with any benefit or coverage questions. [employer] will call you to coordinate your care as prescribed by your provider. If you don't hear from a direct sales representative within 2 business days, please call . * Diagnostic Imaging MRI (Routine) - Authorized Specialty Diagnoses / Procedures Referred By Charli sylvester Referred To Contact Radiology. 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 Diagnoses Right wrist pain Procedures XR Wrist Right G/E 3 [place] [address] [place] [address] Phone: tel: fax: Referral ID Status Reason Start Date Expiration Date Visits Re quested Visits Authorized [id number] Closed 02/01/2025 02/01/2026 1 1 Reason for Visit * Reason Comments Pain * Consultation (Routine) - Pending Review Specialty Diagnoses / Procedures Referred By Charli sylvester Referred To Contact Diagnoses [place] [address] [place] [address] Phone: tel: fax: Referral ID Status Reason Start Date Expiration Date V isits Requested Visits Authorized [id number] Pending Review 01/19/2025 01/19/2026 1 1 Encounter Details Date Type Department Care Team (Late st Contact Info) Description 02/01/2025 10:00 AM CDT Office Visit [facility] [place] [address] [facility] [address] [place] [address] [place] [address] [place] [id number] [place] [address] [place] [address] Injury of triangular fibrocartilage complex (TFCC) of [...] Answer Date Recorded PHQ-2 Score 0 09/13/2024 [facility] - Occupational [...] MRI has been ordered. You may call [phone] to schedule over the phone. Please call my office to schedule a video visit 2 days after your MRI is complete to discuss results and next step treatment options. -Patient will start formal hand therapy and home exercise program. They can also bakelite molder a custom splint to wear to help with her pain while she is transferring from her wheelchair -Call direct clinic number [[phone]] at any time with questions or concerns. Cayden Bejarano MD [facility] Orthopedics and Sports Medicine [facility] documented in this encounter Progress Notes * [...] MRI has been ordered. You may call [phone] to schedule over the phone. Please call my office to schedule a video visit 2 days after your MRI is complete to discuss results and next step treatment options. -Patient will start formal hand therapy and home exercise program. They can also bakelite molder a custom splint to wear to help with her pain while she is transferring from her wheelchair -Call direct clinic number [[phone]] at any time with questions or concerns. Cayden Bejarano MD [facility] Orthopedics and Sports Medicine [facility] ----- SUBJECTIVE Laina Escudero is a/an 24 year old Left handed female who is seen in consultation at the request of Heladio Willoughby M.D. for evaluation of right wrist pain. The patient was recently seen by Family Medicine and mentioned righ wrist painThe patient is seen with staff, Helen and staff from the company [employer]. Onset: Intermittent for several years. 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 Normal pinch strength. Special Tests: Positive: tfc grind Negative: Mary's, CMC grind, thenar eminence wasting, hypothenar eminence wasting. Independent visualization of the below image: Recent Results (from the past 24 hours) XR Wrist Right G/E 3 Views Narrative No acute fracture, dislocation or osseous abnormalities. Cayden Bejarano MD [facility] documented in this encounter Plan of Treatment Upcoming Encounters Date Type Department Care Team (Late st Contact Info) Description 03/03/2025 9:00 AM CDT Office Visit [facility] [address] 3rd [place] [phone] Jadon Floyd MD [address] [place] [address] 03/23/2025 12:45 PM CDT Appointment [facility] [address] [place] [phone] [place] [address] [place] [address] 03/23/2025 1:30 PM CDT Hospital Encounter [facility] [address] [place] [address] Cayden Bejarano MD [address] [place] [address] [address] [place] [address] 03/25/2025 10:20 AM CDT Virtual Visit [facility] [place] [address] [place] [address] [place] [address] [place] [address] 04/04/2025 12:00 PM PREPARED FOODS ASSOCIATE Office Visit [facility] [address] [phone] Sugey Mccoy, MAGNETOMETER OPERATOR [address] [address] 05/30/2025 10:20 AM PREPARED FOODS ASSOCIATE Appointment [facility] [address] [place] [phone] Carlos Joyner MD [address] [place] [address] 05/31/2025 2:00 PM PREPARED FOODS ASSOCIATE Virtual Visit [facility] [address] 4th [place] [phone] Carlos Joyner MD [address] [place] [address] 07/25/2025 11:00 AM PREPARED FOODS ASSOCIATE Office Visit [facility] [address] [place] [address] [place] [address] [place], [place] [phone] Scheduled Orders Name Type Priority Associated Diagnoses [...] forearm documented in this encounter Care Teams Digital Communications Manager Relationship Specialty Start [place] [address] [place] [address] PCP - General 03/05/23 Carlos Joyner MD [address] [place] [address] [phone] Urology 12/09/19 Jadon Murray MD [facility] [address] [facility] [address] [place], [place] [phone] Referring Physician Pediatric Surgery 12/09/19 Maru Villagomez, RN Registered Nurse 12/10/19 Ang Slade MD [address] [place] [address] 996925 Urology 04/24/20 Carlos Joyner MD [address] [place] [address] 840755 Assigned Surgical Provider 12/24/20 Ang Slade MD [address] [address] Urology 12/18/22 Lakshmi Wilhelm PA-C [address] [place] [address] Physician Dray Truck Driver Urology 02/03/23 [place] [address] [place] [address] Assigned PCP 02/06/23 Alissa Perez PA-C [address] [place] [address] Physician Dray Truck Driver Surgery 09/04/23 Lakshmi Wilheml PA-C [address] [place] [address] Physician Dray Truck Driver Urology 09/16/23 Aidee Valero PA-C [address] [place] [address] Assigned Musculoskeletal Provider 04/17/24 02/14/25 Carlos Joyner MD [address] [place] [address] Urology 01/26/25 Jadon Floyd MD [address] [place] [address] Physician Physical Medicine and Rehabilitation 01/31/25 Tanisha Marlow [address] [facility] [address] 03/30/24 documented as of this encounter
--- OUTSIDE RECORDS SUMMARY | 2025-02-01 10:05 | XMS_ITS | Encounter Summary ---
Author Organization [place] Address [address] [place] [address] Care Team Providers Care Domestic Helper Name Role Phone Carlos Joyner MD Unavailable [phone] Jadon Murray MD Unavailable +[phone] Maru Villagomez RN Unavailable Unavailable Ang Slade MD Unavailable +[phone] Carlos Joyner MD Unavailable [phone] Ang Slade MD Unavailable [phone] Lakshmi Wilhelm-C Unavailable [phone] Heladio Willoughby MD Primary Care Provider [phone] Heladio Willoughby MD Unavailable Alissa Perez PA-C Unavailable [phone] [facility] carey PA-C Unavailable [phone] Aidee Valero PA-C Unavailable [phone] Carlos Joyner MD Unavailable [phone] Jadon Floyd MD Unavailable [phone] Reason for Visit * Diagnostic Imaging XR (Routine) - Closed Specialty Diagnoses / Procedures Referred By Contac t Referred To Contact Radiology. Diagnoses Right wrist pain Procedures XR Wrist Right G/E 3 [place] [address] [place] [address] Phone: tel: fax: Referral ID Status Reason Start Date Expiration Date Visits Re quested Visits Authorized [id number] Closed 02/01/2025 02/01/2026 1 1 Encounter Details Date Type Department Care Team (Late st Contact Info) Description 02/01/2025 10:05 AM CDT Ancillary Procedure [facility] [address] [place] [address] [place] [address] [place] [address] Right wrist pain Social History Tobacco Use [...] Answer Date Recorded PHQ-2 Score 0 09/13/2024 [facility] of Occupat ional Health - Occupational Stress [...] Description 03/03/2025 9:00 AM CDT Office Visit [facility] [address] [address] Jadon Floyd MD [address] [place] [address] 410205 03/23/2025 12:45 PM CDT Appointment [facility] Special[facility] [place] [facility] [address] [place] [address] [place] [address] [place] [address] [place] [address] 03/23/2025 1:30 PM CDT Hospital Encounter [facility] [address] [facility] [address] [place] [address] [place]den [place]jar[place] [address] [place] [address] [address] [place] [address] 03/25/2025 10:20 AM CDT Virtual Visit [facility] [place] [address] [place] [address] [address] [place] [address] [place] [address] [place] [address] 04/04/2025 12:00 PM MOTIVATIONAL SPEAKER Office Visit [facility] Sleep [address] [phone] Sugey Mccoy, ACID RETORT OPERATOR [address] 056234 05/30/2025 10:20 AM MOTIVATIONAL SPEAKER Appointment [facility] [address] [facility] [address] [place] [phone] Carlos Joyner MD [address] [place] [address] 749455 05/31/2025 2:00 PM MOTIVATIONAL SPEAKER Virtual Visit [facility] Urology [address] [place] [phone] Carlos Joyner MD [address] [place] [address] [phone] 07/25/2025 11:00 AM MOTIVATIONAL SPEAKER Office Visit [facility] [address] [place] [phone] [place] [address] [place], [place] 1077368 documented as of this encounter Procedures Procedure [...] forearm documented in this encounter Care Teams Domestic Helper Relationship Specialty Start [place] [address] [place], [place] [phone] PCP - General 03/05/23 Carlos Joyner MD [address] [place] [address] Urology 12/09/19 Jadon Murray MD [facility] [address] [address] Referring Physician Pediatric Surgery 12/09/19 Maru Villagomez, RN Registered Nurse 12/10/19 Ang Slade MD [address] [place] [address] Urology 04/24/20 Carlos Joyner MD [address] [place] [address] 270[address] Assigned Surgical Provider 12/24/20 Ang Slade MD [address] [place] [address] Urology 12/18/22 Lakshmi Wilhelm PA-C [address] [place] [address] 280085 Physician Federal Law Clerk Urology 02/03/23 [place] [address] [place] [address] Assigned PCP 02/06/23 Alissa Perez PA-C [address] [place] [address] 027185 Physician Federal Law Clerk Surgery 09/04/23 Lakshmi Wilhelm PA-C [address] [place] [address] 345255 Physician Federal Law Clerk Urology 09/16/23 Aidee Valero PA-C [address] [place] [address] 344825 Assigned Musculoskeletal Provider 04/17/24 02/14/25 Carlos Joyner MD [address] [place] [address] [phone] Urology 01/26/25 Jadon Floyd MD 9 [place], [place] 452355 Physician Physical Medicine and Rehabilitation 01/31/25 Tanisha Marlow 4120 [facility] [address] 03/30/24 documented as of this encounter
--- OUTSIDE RECORDS SUMMARY | 2025-02-01 10:05 | XMS_ITS | Encounter Summary ---
Author Organization [facility] Address [address] [place] [address] Care Team Providers Care Back End Architect Name Role Phone Carlos Joyner MD Unavailable [phone] Jadon Murray MD Unavailable [phone] Maru Villagomez RN Unavailable Unavailable Ang Slade MD Unavailable [phone] Carlos Joyner MD Unavailable [phone] Ang Slade MD Unavailable [phone] Lakshmi Wilhelm-C Unavailable [phone] Heladio Willoughby MD Primary Care Provider [phone] Heladio Willoughby MD Unavailable Alissa Perez PA-C Unavailable [phone] [facility] Unavailable [phone] Aidee Valero PA-C Unavailable [phone] Carlos Joyner MD Unavailable [phone] Jadon Floyd MD Unavailable [phone] Reason for Visit * Diagnostic Imaging XR (Routine) - Closed Specialty Diagnoses / Procedures Referred By Contac t Referred To Contact Radiology. Diagnoses Right wrist pain Procedures XR Wrist Right G/E 3 [place] [address] [address] [place] [address] Phone: tel: fax: Referral ID Status Reason Start Date Expiration Date Visits Re quested Visits Authorized [id number] Closed 02/01/2025 02/01/2026 1 1 Encounter Details Date Type Department Care Team (Late st Contact Info) Description 02/01/2025 10:05 AM CDT Ancillary Procedure [facility] [address] [place] [address] [place] [address] [place] [address] Right wrist pain Social History Tobacco Use [...] Answer Date Recorded PHQ-2 Score 0 09/13/2024 [facility] [place] of Occupat ional Health - Occupational Stress [...] Description 03/03/2025 9:00 AM CDT Office Visit [facility] [address] [address] Jadon Floyd MD [address] [place] [address] 030075 03/23/2025 12:45 PM CDT Appointment [facility] Specialty [facility] [place] [facility] [address] [place] [address] [place] [address] [place] [address] [place] [address] 03/23/2025 1:30 PM CDT Hospital Encounter [facility] [address] [facility] [address] [place] [address] Cayden [place]jar[place] [address] [place] [address] [address] [place] [address] 03/25/2025 10:20 AM CDT Virtual Visit [facility] [place] [address] [place] [address] [address] [place] [address] [place] [address] [place] [address] 04/04/2025 12:00 PM UNDERWRITING INTERNSHIP Office Visit [facility] Sleep [address] [phone] Sugey Mccoy, COMMERCIAL REAL ESTATE ASSOCIATE [address] 1040[address] 05/30/2025 10:20 AM UNDERWRITING INTERNSHIP Appointment [facility] [address] [facility] [address] [place] [address] Carlos Joyner MD [address] [place] [address] 867195 05/31/2025 2:00 PM UNDERWRITING INTERNSHIP Virtual Visit [facility] Urology [address] [place] [phone] Carlos Joyner MD [address] [place] [address] [phone] 07/25/2025 11:00 AM UNDERWRITING INTERNSHIP Office Visit [facility] [address] [place] [phone] [place] [address] [place], [place] [phone] documented as of this encounter Procedures Procedure [...] forearm documented in this encounter Care Teams Back End Architect Relationship Specialty Start [place] [address] [place], [place] [phone] PCP - General 03/05/23 Carlos Joyner MD [address] [place] [address] Urology 12/09/19 Jadon Murray MD [facility] [address] [address] Referring Physician Pediatric Surgery 12/09/19 Maru Villagomez, RN Registered Nurse 12/10/19 Ang Slade MD [address] [place] [address] Urology 04/24/20 Carlos Joyner MD [address] [place] [address] Assigned Surgical Provider 12/24/20 Ang Slade MD [address] [place] [address] Urology 12/18/22 Lakshmi Wilhelm PA-C [address] [place] [address] 881225 Physician Clipper Machine Operator Urology 02/03/23 [place] [address] [place] [address] Assigned PCP 02/06/23 Alissa Perez PA-C [address] [place] [address] 054665 Physician Clipper Machine Operator Surgery 09/04/23 Lakshmi Wilhelm PA-C [address] [place] [address] 679815 Physician Clipper Machine Operator Urology 09/16/23 Aidee Valero PA-C [address] [place] [address] 386705 Assigned Musculoskeletal Provider 04/17/24 02/14/25 Carlos Joyner MD [address] [place] [address] 285375 Urology 01/26/25 Jadon Floyd MD 9 [place], [place] 822775 Physician Physical Medicine and Rehabilitation 01/31/25 Tanisha Marlow 4120 [facility] [address] 03/30/24 documented as of this encounter
--- OUTSIDE RECORDS SUMMARY | 2025-02-08 15:00 | XMS_ITS | Encounter Summary ---
Author Organization [facility] Address [address] [place] [address] Care Team Providers Care Ceramics Test Engineer Name Role Phone Carlos Joyner MD Unavailable + [phone] Jadon Murray MD Unavailable [phone] Maru Villagomez RN Unavailable Unavailable Ang Slade MD Unavailable [phone] Carlos Joyner MD Unavailable + [phone] Ang Slade MD Unavailable [phone] Lakshmi Wilhelm-C Unavailable [phone] Heladio Willoughby MD Primary Care Provider [phone] Heladio Willoughby MD Unavailable Alissa Perez PA-C Unavailable [phone] [facility] PA-[facility] Unavailable [phone] Aidee Valero PA-C Unavailable [phone] Carlos Joyner MD Unavailable [phone] Jadon Floyd MD Unavailable [phone] Reason for Visit * Occupational Therapy (Routine: Next available opening) - Pending Review Specialty Diagnoses / Procedures Referred By Contabran t Referred To Contact Diagnoses Right wrist pain 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, [place] [address] [place] [address] Phone: tel: fax: Referral ID Status Reason Start Date Expiration Date V isits Requested Visits Authorized [id number] Pending Review 02/01/2025 02/01/2026 1 1 Encounter Details Date Type Department Care Team (Latest Contact Info) Description 02/08/2025 3:00 PM CDT Therapy Visit [facility] [address] [place] [address] [place] [address] [place], [place] [phone] Eliza Carty OT [address] [place] [address] Injury of triangular fibrocartilage complex (TFCC) of [...] Answer Date Recorded PHQ-2 Score 0 09/13/2024 [facility] [place] of Occupat ional Health - Occupational Stress [...] as of this encounter Progress Notes * Eliza Carty OT - 02/08/2025 3:00 PM CDT OCCUPATIONAL THERAPY EVALUATION Type of Visit: Evaluation Fall Risk Screen: Have you fallen 2 or more times in the past year?: No Have you fallen and had an injury in the past year?: No Subjective Presenting condition or subjective complaint: Recurring right wrist pain which is affecting abilityto transfer in and out of motorized wheelchair and complete activities of daily living. Date of onset: 02/01/25 (order date) Relevant medical history: Bladder or bowel problems; Depression; Implanted device; Incontinence; Sleep disorder like apnea Dates & types of surgery: Shunt Insertion at . Numerous Kidney Stone Surgeries, most recent in November 2024. Prior diagnostic imaging/testing results: Prior therapy history for the same diagnosis, illness or injury: No Prior Level of Function Transfers: Ambulation: ADL: IADL: Living Environment Social support: With a caregiver/helper Type of home: House; Multi-level Stairs to enter the home: Yes 3 Is there a railing: No Ramp: Yes Stairs inside the home: Yes 20 Is there a railing: Yes Help at home: Self Cares (home health aide/personal injury paralegal, family, etc); Home management tasks (cooking, cleaning); Medication and/or finances; Home and Yard maintenance tasks; Assist for driving and community activities Equipment owned: Power wheelchair or scooter; Raised toilet seat; Ceiling lift Employment: No Hobbies/Interests: [employer] Bowling, Basketball, Bocce Ball, Track & Field. [employer] Bowling. Dining out with family & caregivers, movies, animals, crafts. Getting nails and hair done. Patient goals for therapy: Continue safe transfers in and out of motorized wheelchair and continue activities of daily living, including Physical Therapy sessions that I've recently been unable to complete due to Right wrist pain and discomfort. 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 Unsure if starting therapy again or what caused, but occasionally was bothersome before. Now it's been more frequent and worsened intensity Functional Outcome Measure: Upper Extremity Functional Index Score: SCORE: Column Totals: /80: (Proxy-Rptd) 8 (A lower score indicates greater disability.) Pain Level (Scale 0-10): 02/08/2025 At Rest 0-2+/10 With Use 03/04 Pain Description: Date 02/08/2025 Location wrist Pain Quality Sharp and Shooting Frequency intermittent Pain is worst daytime Exacerbated by Functional transfers/weight bearing Relieved by rest and OTC brace, Tylenol Progression Gradually getting worse. Edema (Circumference measured in cm) 02/08/2025 02/08/2025 L R Distal wrist crease 15.9 15.8 SENSATION: WNL throughout all nerve distributions; per patient report ROM: Wrist ROM Left AROM Right AROM Extension 58 36 + Flexion 66 6 + Radial Deviation (RD) 16 -6 Ulnar Deviation (UD) 27 11 Supination 83 53 Pronation WNL WNL STRENGTH: Deferred due to pain PALPATION: Pain Report: - none + mild ++ moderate +++ severe Wrist Palpation 1st Dorsal Compartment + Distal Radius +++ Radial Styloid +++ FCR +++ Dorsal Sensory Radial Nerve (DSRN) NT DRUJ ++ Ulna Styloid ++ TFCC +++ Volar Scaphoid +++ Dorsal Scaphoid +++ Volar Lunate NT d/t pain Dorsal Lunate NT d/t pain Assessment & Plan CLINICAL IMPRESSIONS Medical Diagnosis: Right wrist pain 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 The following significant findings have been identified: Impaired activity tolerance, Impaired coordination, Impaired ROM, Impaired strength, and Pain. These identified deficits interfere with their ability to perform self care tasks as compared to previous level of function. Clinical Decision Making (Complexity): Assessment of Occupational Performance: 5 or more Performance Deficits Occupational Performance Limitations: bathing/showering, toileting, dressing, feeding, functional mobility, hygiene and grooming, and community mobility Clinical Decision Making (Complexity): Low complexity PLAN OF CARE Treatment Interventions: Modalities: US, Ice and Hot Packs Therapeutic Exercise: AROM, AAROM, PROM, Tendon Gliding, Isotonics, Isometrics, and Stabilization Neuromuscular re-education: Nerve Gliding, Coordination/Dexterity, Proprioceptive Training, Kinesiotaping, and Strain Counter Strain Manual Techniques: Coordination/Dexterity, Joint mobilization, Friction massage, Myofascial release, and Manual edema mobilization Orthotic Fabrication: Static and Forearm based Self Care: Self Care Tasks Stereo Equipment Repairer Goals OT Goal 1 Goal Identifier: ADL - bathing Goal Description: A reduction in 3 points or more on the pain scale during functional tasks Rationale: In order to maximize safety and independence with performance of self-care activities Goal Progress: Goal established. Up to a 03/04 pain Target Date: 04/05/25 OT Goal 3 Goal Identifier: ADL - bathing Goal Description: Mild to no difficulty (3 or greater UEFI score) weight bearing needed for functional transfers Rationale: In order to maximize safety and independence with functional transfers and functional mobility within the home or community Goal Progress: Quite a bit of difficulty (1 UEFI score) weight bearing. Goal established Target Date: 04/05/25 Frequency of Treatment: 1x/week Duration of Treatment: 4 weeks, tapering to biweekly for 4 weeks Recommended Referrals to Other Professionals: Education Assessment: Learner/Method: Patient;Demonstration Education Comments: PTRX on phone Risks and benefits of evaluation/treatment have been explained. Patient/Family/caregiver agrees with Plan of Care. 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 Referring Provider: Cayden Bejarano Initial Assessment See Epic Evaluation- 02/08/25 Cosigned by Cayden Bejarano MD at 02/08/2025 5:15 PM CDT Associated attestation - Cayden Bejarano MD - 02/08/2025 5:15 PM CDT Physician Attestation I agree with the information in this note. Cayden Bejarano MD documented in this encounter Plan of Treatment Upcoming Encounters Date Type Department Care Team (Late st Contact Info) Description 03/03/2025 9:00 AM CDT Office Visit [facility] Physical Medicine and Rehabilitation Clinic [address] [phone] Jadon Floyd MD [address] [place] [address] 837115 03/23/2025 12:45 PM CDT Appointment [facility] [address] [place] [phone] [place] [address] [address] [place] [address] 03/23/2025 1:30 PM CDT Hospital Encounter [facility] [address] [place] [phone] [place] [address] [place] [address] 03/25/2025 10:20 AM CDT Virtual Visit [facility] [place] [address] [place], [place] [address] [place] [address] Cayden Bejarano [place] [address] [place] [address] 04/04/2025 12:00 PM SLEEPER CUTTER Office Visit [facility] [place] [address] [place] [phone] Sugey Mccoy, [facility] [address] [place] [address] [address] [place] [address] 05/30/2025 10:20 AM SLEEPER CUTTER Appointment [facility] [address] [place] [phone] Carlos Joyner MD [address] [place] [address] [phone] 05/31/2025 2:00 PM SLEEPER CUTTER Virtual Visit [facility] Urology Clinic [address] 4th [place] [phone] Carlos Joyner MD [address] [place] [address] [phone] 07/25/2025 11:00 AM SLEEPER CUTTER Office Visit [facility] [address] [place] [phone] [place] [address] [place] [address] documented as of this encounter Visit Diagnoses Diagnosis 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, initial encounter- Primary Right wrist pain Pain in joint, forearm documented in this encounter Care Teams Ceramics Test Engineer Relationship Specialty Start [place] [address] [place] [address] PCP - General 03/05/23 Carlos Joyner MD [address] [place] [address] [id number] Urology 12/09/19 Jadon Murray MD [facility] [address] [facility] 550 [place] [address] Referring Physician Pediatric Surgery 12/09/19 Maru Villagomez, RN Registered Nurse 12/10/19 Ang Slade MD [address] [place] [address] 394 [place] [address] Urology 04/24/20 Carlos Joyner MD [address] [place] [address] [phone] Assigned Surgical Provider 12/24/20 Ang Slade MD [address] [place] [address] 394 [place] [address] Urology 12/18/22 Lakshmi Wilhelm PA-C [address] [place] [address] 486805 Physician Product Applications Scientist Urology 02/03/23 [place] [address] [place] [address] Assigned PCP 02/06/23 Alissa Perez PA-C [address] [place] [address] [phone] Physician Product Applications Scientist Surgery 09/04/23 Lakshmi Wilhelm PA-C [address] [place] [address] 829565 Physician Product Applications Scientist Urology 09/16/23 Aidee Valero PA-C [address] [place] [address] [phone] Assigned Musculoskeletal Provider 04/17/24 02/14/25 Carlos Joyner MD [address] [place] [address] 364885 Urology 01/26/25 Jadon Floyd MD [address] [place] [address] [phone] Physician Physical Medicine and Rehabilitation 01/31/25 Tanisha Marlow 4120 [facility] [address] 03/30/24 documented as of this encounter
--- OUTSIDE RECORDS SUMMARY | 2025-02-08 15:00 | XMS_ITS | Encounter Summary ---
Author Organization [facility] Address [address] [place] [address] Care Team Providers Care Sewer Connector Name Role Phone Carlos Joyner MD Unavailable + [phone] Jadon Murray MD Unavailable +[phone] Maru Villagomez RN Unavailable Unavailable Ang Slade MD Unavailable +- [phone] Carlos Joyner MD Unavailable + [phone] Ang Slade MD Unavailable +- [phone] Lakshmi Wilhelm-C Unavailable +[phone] Heladio Willoughby MD Primary Care Provider [phone] Heladio Willoughby MD Unavailable Alissa Perez PA-C Unavailable [phone] [facility] carey PA-C Unavailable +- [phone] Aidee Valero PA-C Unavailable +-[phone] Carlos Joyner MD Unavailable + [phone] Jadon Flyod MD Unavailable [phone] Reason for Visit * Occupational Therapy (Routine: Next available opening) - Pending Review Specialty Diagnoses / Procedures Referred By Contabran t Referred To Contact Diagnoses Right wrist pain 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, [place] [address] [place] [address] Phone: tel: fax: Referral ID Status Reason Start Date Expiration Date V isits Requested Visits Authorized [id number] Pending Review 02/01/2025 02/01/2026 1 1 Encounter Details Date Type Department Care Team (Latest Contact Info) Description 02/08/2025 3:00 PM CDT Therapy Visit [facility] [address] [place] [address] [place] [address] [place], [place] [phone] Eliza Carty OT 909 [place] [address] Injury of triangular fibrocartilage complex (TFCC) of [...] Answer Date Recorded PHQ-2 Score 0 09/13/2024 [facility] [place] of Occupat ional Health - Occupational Stress [...] at home: Self Cares (home health aide/personal care worker, family, etc); Home management tasks (cooking, cleaning); Medication and/or finances; Home and Yard maintenance tasks; Assist for driving and community activities Equipment owned: Power wheelchair or scooter; Raised toilet seat; Ceiling lift Employment: No Hobbies/Interests: [employer] Bowling, Basketball, Bocce Ball, Track & Field. Community Flo[employer] Bowling. Dining out with family & caregivers, [...] Transportation: medical transportation Currently not working -At [email or web address] 5-7 years ago, chair fell over the [...] Forearm based Self Care: Self Care Tasks Billing Auditor Goals OT Goal 1 Goal Identifier: ADL [...] Care. Evaluation Time: Sherman Corcoran Complexity Minutes (88415): 26 Signing Clinician: Eliza Carty OT [facility] OUTPATIENT OCCUPATIONAL THERAPY PLAN OF TREATMENT FOR OUTPATIENT REHABILITATION Patient's Last Name, First Name, JaelLaina Allan Date of : 2000 Provider's Name [facility] Onset Date: 02/01/25 (order date) Start of [...] Description 03/03/2025 9:00 AM CDT Office Visit [facility] Rehabilitation Clinic [address] [phone] Jadon Floyd MD [address] [place] [address] 698565 03/23/2025 12:45 PM CDT Appointment [facility] [address] [place] [address] [place] [address] [place] [address] 03/23/2025 1:30 PM CDT Hospital Encounter [facility] [address] [place] [phone] [place] [address] [place] [address] 03/25/2025 10:20 AM CDT Virtual Visit [facility] [place] [address] [place], [place] [address] [place] [address] Cayden [place] [address] [place] [address] 04/04/2025 12:00 PM TREND INVESTIGATOR Office Visit [facility] [place] [address] [place] [phone] Sugey Mccoy, NESTOR [facility] [address] [place] [address] [address] [place] [address] 05/30/2025 10:20 AM TREND INVESTIGATOR Appointment [facility] [address] [place] [phone] Carlos Joyner MD [address] [place] [address] [phone] 05/31/2025 2:00 PM TREND INVESTIGATOR Virtual Visit [facility] Urology Clinic [address] 4th [place] [phone] Carlos Joyner MD [address] [place] [address] 759725 07/25/2025 11:00 AM TREND INVESTIGATOR Office Visit [facility] [address] [place] [phone] [place] [address] [place] [address] documented as of this encounter Visit Diagnoses Diagnosis 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, initial encounter- Primary Right wrist pain Pain in joint, forearm documented in this encounter Care Teams Sewer Connector Relationship Specialty Start [place] [address] [place] [address] PCP - General 03/05/23 Carlos Joyner MD [address] [place] [address] [phone] Urology 12/09/19 Jadon Murray MD [facility] 2530 [facility] [address] [place] [address] Referring Physician Pediatric Surgery 12/09/19 Maru Villagomez, RN Registered Nurse 12/10/19 Ang Slade MD [address] [place] [address] [address] [place] [address] Urology 04/24/20 Carlos Joyner MD [address] [place] [address] [phone] Assigned Surgical Provider 12/24/20 Ang Slade MD [address] [place] [address] 394 [place] [address] Urology 12/18/22 Lakshmi Wilhelm PA-C [address] [place] [address] [phone] Physician Asp Net Software Developer Urology 02/03/23 [place] [address] [place] [address] Assigned PCP 02/06/23 Alissa Perez PA-C [address] [place] [address] 062435 Physician Asp Net Software Developer Surgery 09/04/23 Lakshmi Wilhelm PA-C [address] [place] [address] [phone] Physician [employer] Software Developer Urology 09/16/23 Aidee Valero PA-C [address] [place] [address] [phone] Assigned Musculoskeletal Provider 04/17/24 02/14/25 Carlos Joyner MD [address] [place] [address] [phone] Urology 01/26/25 Jadon Floyd MD [address] [place] [address] 366075 Physician Physical Medicine and Rehabilitation 01/31/25 Tanisha Marlow 4120 [facility] [address] 03/30/24 documented as of this encounter
--- OUTSIDE RECORDS SUMMARY | 2025-02-15 10:00 | XMS_ITS | Encounter Summary ---
Author Organization [place] Address [address] [place] [address] Care Team Providers Care Academic Adviser Name Role Phone Carlos Joyner MD Unavailable [phone] Jadon Murray MD Unavailable +[phone] Maru Villagomez RN Unavailable Unavailable Ang Slade MD Unavailable +[phone] Carlos Joyner MD Unavailable +[phone] Ang Slade MD Unavailable +[phone] Lakshmi Wilhelm PA-C Unavailable +[phone] Heladio Willoughby MD Primary Care Provider [phone] Heladio Willoughby MD Unavailable Alissa Perez-Juan A Unavailable [phone] Lakshmi Wilhelm PA-C Unavailable +[phone] Carlos Joyner MD Unavailable +[phone] Jadon Floyd MD Unavailable +[phone] aCyden Bejarano MD Unavailable Encounter Details Date Type Department Care Team (Latest Contact Info) Description 02/15/2025 10:00 AM CDT Therapy Visit [facility] [address] [facility] [address] [place] [address] Eliza Carty, OT [address] [place] [address] 14700 Injury of triangular fibrocartilage complex (TFCC) of [...] Answer Date Recorded PHQ-2 Score 0 09/13/2024 [facility]at ional [...] Description 03/03/2025 9:00 AM CDT Office Visit [facility] [address] [phone] Jadon Floyd MD [address] [place] [address] 744225 03/23/2025 12:45 PM CDT Appointment [facility] [address] [place] [address] Cayden Bejarano MD [address] [place] [address] 300 [place], [place] 530797 03/23/2025 1:30 PM CDT Hospital Encounter [facility] [address] [place] [address] [place] [address] [place] [address] 03/25/2025 10:20 AM CDT Virtual Visit [facility] [place] [address] [facility] [address] [place] [address] [place] [address] [place] [address] 04/04/2025 12:00 PM AUTOMOTIVE WHOLESALE PARTS ADVISOR Office Visit [facility] [place] [address] [facility] [address] Sugey Mccoy APRN [facility] [address] [place] [address] [address] [place] [address] 05/30/2025 10:20 AM AUTOMOTIVE WHOLESALE PARTS ADVISOR Appointment [facility] [address] [facility] [address] [place] [address] Carlos Joyner MD [address] [place] [address] 616455 05/31/2025 2:00 PM AUTOMOTIVE WHOLESALE PARTS ADVISOR Virtual Visit [facility] [address] 4th [place] [address] Carlos Joyner MD [address] [place] [address] 07/25/2025 11:00 AM AUTOMOTIVE WHOLESALE PARTS ADVISOR Office Visit [address] [address] [place] [address] [place] [address] documented as of this encounter Visit Diagnoses Diagnosis 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, initial encounter- Primary Right wrist pain Pain in joint, forearm documented in this encounter Care Teams Academic Adviser Relationship Specialty [place] [address] [place] [address] PCP - General 03/05/23 Carlos Joyner MD [address] [place] [address] 17306 Urology 12/09/19 Jadon Murray MD [facility] [address] [address] Referring Physician Pediatric Surgery 12/09/19 Maru Villagomez, RN Registered Nurse 12/10/19 Ang Slade MD [address] [place] [address] Urology 04/24/20 Carlos Joyner MD [address] [place] [address] 52559 Assigned Surgical Provider 12/24/20 Ang Slade MD [address] [place] [address] 84450 Urology 12/18/22 Lakshmi Wilhelm PA-C [address] [place] [address] 279035 Physician [place] [facility] 02/03/23 [place] [address] [place] [address] Assigned PCP 02/06/23 Alissa Perez PA-C [address] [place] [address] 168965 Physician [place] Surgery 09/04/23 Lakshmi Wilhelm PA-C [address] [place] [address] 14514 Physician [place] Urology 09/16/23 Carlos Joyner MD [address] [place] [address] 038525 Urology 01/26/25 Jadon Floyd MD [address] [place] [address] 187155 Physician Physical Medicine and Rehabilitation 01/31/25 [place] [address] [place] [address] Assigned Musculoskeletal Provider 02/15/25 Tanisha Marlow 4[address] [facility] [address] 03/30/24 documented as of this encounter
--- OUTSIDE RECORDS SUMMARY | 2025-02-15 10:00 | XMS_ITS | Encounter Summary ---
Author Organization [place] Address [address] [place] [address] Care Team Providers Care Online Tutor Name Role Phone Carlos Joyner MD Unavailable [phone] Jadon Murray MD Unavailable +[phone] Maru Villagomez RN Unavailable Unavailable Ang Slade MD Unavailable +[phone] Carlos Joyner MD Unavailable +[phone] Ang Slade MD Unavailable [phone] Lakshmi Wilhelm PA-C Unavailable [phone] Heladio Willoughby MD Primary Care Provider [phone] Heladio Willoughby MD Unavailable Alissa Perez-Juan A Unavailable [phone] Lakshmi Wilhelm PA-C Unavailable [phone] Carlos Joyner MD Unavailable [phone] Jadon Floyd MD Unavailable [phone] Cayden Bejarano MD Unavailable Encounter Details Date Type Department Care Team (Latest Contact Info) Description 02/15/2025 10:00 AM CDT Therapy Visit [facility] [address] [facility] [address] [place] [address] Eliza Carty, OT [address] [place] [address] Injury of triangular fibrocartilage complex (TFCC) of [...] Answer Date Recorded PHQ-2 Score 0 09/13/2024 [facility] of Occupat ional Health [...] [facility] [address] [phone] Jadon Floyd MD [address] [place] [address] 368205 03/23/2025 12:45 PM CDT Appointment [facility] [address] [place] [address] Cayden Bejarano MD [address] [place] [address] 300 [place], [place] 681447 03/23/2025 1:30 PM CDT Hospital Encounter [facility] [address] [place] [address] [place] [address] [place] [address] 03/25/2025 10:20 AM CDT Virtual Visit [facility] [place] [address] [facility] [address] [place] [address] [place] [address] [place] [address] 04/04/2025 12:00 PM DIRECTOR DENTAL SERVICES Office Visit [facility] [place] [address] [facility] [place] [place] [address] Sugey Mccoy APRN [facility] [address] [place] [address] [address] [place] [address] 05/30/2025 10:20 AM DIRECTOR DENTAL SERVICES Appointment [facility] [address] [facility] [address] [place] [address] Carlos Joyner MD [address] [place] [address] 153585 05/31/2025 2:00 PM DIRECTOR DENTAL SERVICES Virtual Visit [facility] [address] 4th [place] [address] Carlos Joyner MD [address] [place] [address] 07/25/2025 11:00 AM DIRECTOR DENTAL SERVICES Office Visit [address] [address] [place] [address] [place] [address] documented as of this encounter Visit Diagnoses Diagnosis 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, initial encounter- Primary Right wrist pain Pain in joint, forearm documented in this encounter Care Teams Online Tutor Relationship Specialty [place] [address] [place] [address] PCP - General 03/05/23 Carlos Joyner MD [address] [place] [address] 659[address] Urology 12/09/19 Jadon Murray MD [facility] [address] [address] Referring Physician Pediatric Surgery 12/09/19 Maru Villagomez, RN Registered Nurse 12/10/19 Ang Slade MD [address] [place] [address]694 Urology 04/24/20 Carlos Joyner MD [address] [place] [address] 34494 Assigned Surgical Provider 12/24/20 Ang Slade MD [address] [place] [address] 50585 Urology 12/18/22 Lakshmi Wilhelm PA-C [address] [place] [address] 050425 Physician Uniform Force Captain Urology 02/03/23 [place] [address] [place] [address] Assigned PCP 02/06/23 Alissa Perez PA-C [address] [place] [address] 729675 Physician Uniform Force Captain Surgery 09/04/23 Lakshmi Wilhelm PA-C [address] [place] [address] 14297 Physician Uniform [employer] Captain Urology 09/16/23 Carlos Joyner MD [address] [place] [address] 557355 Urology 01/26/25 Jadon Floyd MD [address] [place] [address] 061115 Physician Physical Medicine and Rehabilitation 01/31/25 [place] [address] [place] [address] Assigned Musculoskeletal Provider 02/15/25 Tanisha Marlow 4120 [facility] [address] 03/30/24 documented as of this encounter
--- OUTSIDE RECORDS SUMMARY | 2025-02-21 11:05 | XMS_ITS | Encounter Summary ---
Author Organization [place] Address [address] [place] [address] Care Team Providers Care Lettuce Cutter Name Role Phone Carlos Joyner MD Unavailable [phone] Jadon Murray MD Unavailable [phone] Maru Villagomez RN Unavailable Unavailable Ang Slade MD Unavailable [phone] Carlos Joyner MD Unavailable [phone] Ang Slade MD Unavailable [phone] Lakshmi WilhelmC Unavailable [phone] Heladio Willoughby MD Primary Care Provider [phone] Heladio Willoguhby MD Unavailable Alissa Perez-Juan A Unavailable [phone] Lakshmi Wilhelm PA-C Unavailable [phone] Carlos Joyner MD Unavailable [phone] Jadon Floyd MD Unavailable [phone] Cayden Bejarano MD Unavailable Encounter Details Date Type Department Care Team (Late st Contact Info) Description 02/21/2025 11:05 AM CDT Lab [facility] [address] [place] [address] Recurrent UTI; Kidney stone Social History Tobacco Use Types [...] Answer Date Recorded PHQ-2 Score 0 09/13/2024 [facility] [...] Description 03/03/2025 9:00 AM CDT Office Visit [facility] [address] [phone] Jadon Floyd MD [address] [place] [address] 587655 03/23/2025 12:45 PM CDT Appointment [facility] [address] [place] [address] [address] [place] [address] Cayden Bejar[place] [address] [place] [address] 03/23/2025 1:30 PM CDT Hospital Encounter [facility] [address] [facility] [address] [place] [address] Cayden Bejarano [place] [address] [place] [address] 03/25/2025 10:20 AM CDT Virtual Visit [facility] [place] [address] [place] [address] [place] [address] [place] [address] 04/04/2025 12:00 PM SUPERVISOR LITHARGE Office Visit [facility] [place] [address] [place] [phone] Sugey Mccoy, NESTOR [facility] [address] [place], [place] [address] [address] [place], [place] [address] 05/30/2025 10:20 AM SUPERVISOR LITHARGE Appointment [facility] [address] [facility] [address] [place] [phone] Carlos Joyner MD [address] [place] [address] 917305 05/31/2025 2:00 PM SUPERVISOR LITHARGE Virtual Visit [facility] [place] [address] [facility] 4th [place] [phone] Carlos Joyner MD [address] [place] [address] [phone] 07/25/2025 11:00 AM SUPERVISOR LITHARGE Office Visit [address] [address] [place] [address] [place] [address] documented as of this encounter Procedures Procedure Name Priority Date/Time Associated Diagnosis Comments CBC WITH PLATELETS AND DIFFERENTIAL Routine 02/21/2025 11:26 AM CDT Recurrent UTI Kidney stone CBC WITH PLATELETS & DIFFERENTIAL Routine 02/21/2025 11:26 AM CDT Recurrent UTI Kidney stone RETICULOCYTE COUNT Routine 02/21/2025 11 :26 AM CDT Recurrent UTI Kidney stone HEPATIC FUNCTION PANEL Routine 02/21/2025 11:26 AM CDT Recurrent UTI Kidney stone BASIC METABOLIC PANEL Routine 02/21/2025 11:26 AM CDT Recurrent UTI Kidney stone URINE CULTURE Routine 02/21/2025 11:15 AM CDT Recurrent UTI documented in this encounter Results * CBC with platelets and differential (02/21/2025 11:26 AM CDT) Pathologist [facility] WBC Count 8.85 4.00 - 11.00 10e3/uL 02/21/2025 12:13 PM CDT [facility] RBC Count 4.75 3.80 - 5.20 10e6/uL 02/21/2025 12:13 PM CDT [facility] Hemoglobin 14.4 11.7 - 15.7 g/dL 02/21/2025 12:13 PM CDT [facility] Hematocrit 44.0 35.0 - 47.0 % 02/21/2025 12:13 PM CDT [facility] MCV 92.6 78.0 - 100.0 fL 02/21/2025 12:13 PM CDT [facility] MCH 30.3 26.5 - 33.0 pg 02/21/2025 12:13 PM CDT [facility] MCHC 32.7 31.5 - 36.5 g/dL 02/21/2025 12:13 PM CDT [facility] RDW 12.8 10.0 - 15.0 % 02/21/2025 12:13 PM CDT [facility] Platelet Count 213 150 - 450 10e3/uL 02/21/2025 12:13 PM CDT [facility] % Neutrophils 62.2 % 02/21/2025 12:13 PM CDT [facility] % Lymphocytes 26.7 % 02/21/2025 12:13 PM CDT [facility] % Monocytes 9.3 % 02/21/2025 12:13 PM CDT [facility] % Eosinophils 1.2 % 02/21/2025 12:13 PM CDT [facility] % Basophils 0.3 % 02/21/2025 12:13 PM CDT [facility] % Immature Granulocytes 0.3 % 02/21/2025 12:13 PM CDT [facility] NRBCs per 100 WBC 0.0 <1.0 /100 025 12:13 PM CDT [facility] Absolute Neutrophils 5.50 1.60 - 8.30 10e3/uL 02/21/2025 12:13 PM CDT [facility] Absolute Lymphocytes 2.36 0.80 - 5.30 10e3/uL 02/21/2025 12:13 PM CDT [facility] Absolute Monocytes 0.82 0.00 - 1.30 10e3/uL 02/21/2025 12:13 PM CDT LABORATORY Absolute Eosinophils 0.11 0.00 - 0.70 10e3/uL 02/21/2025 12:13 PM CDT LABORATORY Absolute Basophils 0.03 0.00 - 0.20 10e3/uL 02/21/2025 12:13 PM CDT LABORATORY Absolute Immature Granulocytes 0.03 <=0.40 10e3/uL 02/21/2025 12:13 PM CDT [facility] Absolute NRBCs <0.03 10e3/uL 02/21/2025 12:13 PM CDT [facility] Blood STRUCTURE OF RIGHT UPPER LIMB / Unknown Venipuncture / Unknown 02/21/2025 11:26 AM CDT 02/21/2025 11:27 AM CDT us Carlos Joyner MD LAB - BLOOD ORDERABLES Fin al Result LABORATORY [facility] Acute Care Lab [address] [facility] Lab (1st floor, no room number) [place] [address], [facility] * Hepatic panel (Albumin, ALT, AST, Bili, Alk Phos, TP) (02/21/2025 11:26 AM CDT) Protein Total 6.9 6.4 - 8.3 g/dL 02/21/2025 12:21 PM CDT LABORATORY Albumin 3.7 3.5 - 5.2 g/dL [...] al Result Performing Organization Address City/[facility]/ZIP Co de Phone Number [facility] Care [facility] [address] Lab (1st floor, no room number) [place] [address] * Reticulocyte count (02/21/2025 11:26 AM CDT) [facility] % Reticulocyte 1.82 0.50 - 2.00 % 02/21/2025 12:13 PM CDT LABORATORY Absolute Reticulocyte 0.0865 0.0250 - 0.0950 10e6/uL 02/21/2025 12:13 PM CDT [facility] Blood STRUCTURE OF RIGHT UPPER LIMB / Unknown Venipuncture / Unknown 02/21/2025 11:26 AM CDT 02/21/2025 11:27 AM CDT Carlos Joyner MD LAB - BLOOD ORDERABLES Fin al Result [facility] Acute Care Lab [address] Lab (1st floor, no room number) [place] [address] * (ABNORMAL) Basic metabolic panel (Ca, Cl, CO2, Creat, Gluc, K, Na, BUN) (02/21/2025 11:26 AM CDT) Pathologist [facility] Sodium 140 135 - 145 mmol/L 02/21/2025 [...] 02/21/2025 12:21 PM CDT LABORATORY Comment:eGFR calculated 2020 CKD-EPI equation. Calcium 9.2 8.8 - 10.4 mg/dL 02/21/2025 12:21 PM CDT LABORATORY Glucose 91 70 - 99 mg/dL 02/21/2025 12:21 PM CDT LABORATORY Blood STRUCTURE OF RIGHT UPPER LIMB / Unknown Venipuncture / Unknown 02/21/2025 11:26 AM CDT 02/21/2025 11:27 AM CDT us Carlos Joyner MD LAB - BLOOD ORDERABLES Fin al Result LABORATORY [facility] Acute Care Lab [address] [facility] Lab (1st floor, no room number) [place] [address], [facility] * (ABNORMAL) Urine Culture Aerobic Bacterial (02/21/2025 11:15 AM CDT) Pathologist [facility] Culture 50,000-100,000 CFU/mL Enterococcus faecalis(A) 02/24/2025 10:10 PM CDT [facility] Culture 50,000-100,000 CFU/mL Klebsiella pneumoniae(A) 02/24/2025 10:10 PM CDT [facility] Culture 50,000-100,000 CFU/mL Klebsiella pneumoniae(A) 02/24/2025 10:10 PM CDT [facility] Culture 50,000-100,000 CFU/mL Klebsiella pneumoniae(A) 02/24/2025 10:10 PM CDT [facility] Urine URINE SPECIMEN / Unknown Non-blood Collection / Unknown 02/21/2025 11:15 AM CDT 02/21/2025 11:16 AM CDT Narrative [facility] - 02/24/2025 10:10 PM CDT ID and Susceptibility testing requested by Dr Joyner [phone] Multiple morphotypes present with no predominant organism. Growth consistent with probable contamination during collection. Suggest repeat specimen if clinically indicated. Organism Antibiotic Method Susceptibility Enterococcus faecalis Ampicillin LINDA <=2 ug/mL: Susceptible Enterococcus faecalis Vancomycin LINDA 1 ug/mL: Susceptible Enterococcus faecalis Nitrofurantoin LINDA <=16 ug/mL: Susceptible Klebsiella pneumoniae Ampicillin LINDA Resistant Comment:Intrinsicall y Resistant Klebsiella pneumoniae Ampicillin/ Sulbactam LINDA 8 ug/mL: Susceptible Klebsiella pneumoniae Piperacillin/Tazobactam LINDA <=4 ug/mL: Susceptible Klebsiella pneumoniae Cefazolin LINDA 2 ug/mL: Susceptible Klebsiella pneumoniae Ceftazidime LINDA <=0.5 ug/mL: Susceptible Klebsiella pneumoniae Ceftriaxone LINDA <=0.25 ug/mL: Susceptible Klebsiella pneumoniae Cefepime LINDA <=0.12 ug/mL: Susceptible Klebsiella pneumoniae Gentamicin LINDA <=1 ug/mL: Susceptible Klebsiella pneumoniae Ciprofloxacin LINDA <=0.06 ug/mL: Susceptible Klebsiella pneumoniae Levofloxacin LINDA <=0.12 ug/mL: Susceptible Klebsiella pneumoniae Nitrofurantoin LINDA 64 ug/mL: Intermediate Klebsiella pneumoniae Trimethoprim/Sulfa methoxazol e LINDA <=1/19 ug/mL: Susceptible Klebsiella pneumoniae Ampicillin LINDA Resistant Comment:Intrinsicall y Resistant Klebsiella pneumoniae Ampicillin/ Sulbactam LINDA 8 ug/mL: Susceptible Klebsiella pneumoniae Piperacillin/Tazobactam LINDA <=4 ug/mL: Susceptible Klebsiella pneumoniae Cefazolin LINDA 2 ug/mL: Susceptible Klebsiella pneumoniae Ceftazidime LINDA <=0.5 ug/mL: Susceptible Klebsiella pneumoniae Ceftriaxone LINDA <=0.25 ug/mL: Susceptible Klebsiella pneumoniae Cefepime LINDA <=0.12 ug/mL: Susceptible Klebsiella pneumoniae Gentamicin LINDA <=1 ug/mL: Susceptible Klebsiella pneumoniae Ciprofloxacin LINDA <=0.06 ug/mL: Susceptible Klebsiella pneumoniae Levofloxacin LINDA <=0.12 ug/mL: Susceptible Klebsiella pneumoniae Nitrofurantoin LINDA 64 ug/mL: Intermediate Klebsiella pneumoniae Trimethoprim/Sulfa methoxazol e LINDA <=1/19 ug/mL: Susceptible Klebsiella pneumoniae Ampicillin LINDA Resistant Comment:Intrinsicall y Resistant Klebsiella pneumoniae Ampicillin/ Sulbactam LINDA 16 ug/mL: Intermediate Klebsiella pneumoniae Piperacillin/Tazobactam LINDA 16 ug/mL: Susceptible Dose Dependent Klebsiella pneumoniae Cefazolin LINDA 4 ug/mL: Susceptible Klebsiella pneumoniae Ceftazidime LINDA <=0.5 ug/mL: Susceptible Klebsiella pneumoniae Ceftriaxone LINDA <=0.25 ug/mL: Susceptible Klebsiella pneumoniae Cefepime LINDA <=0.12 ug/mL: Susceptible Klebsiella pneumoniae Gentamicin LINDA <=1 ug/mL: Susceptible Klebsiella pneumoniae Ciprofloxacin LINDA 0.12 ug/mL: Susceptible Klebsiella pneumoniae Levofloxacin LINDA 0.25 ug/mL: Susceptible Klebsiella pneumoniae Nitrofurantoin LINDA 64 ug/mL: Intermediate Klebsiella pneumoniae Trimethoprim/Sulfa methoxazol e LINDA <=1/19 ug/mL: Susceptible Carlos Joyner MD LAB - [place] [facility] ORDERA BLES Edited Result - Final [facility] LABORATORY [facility] Inf. Diseases Diag. Lab [address] [facility], Room [address] [place] [phone] documented in this encounter Visit Diagnoses Diagnosis Recurrent UTI Urinary tract infection, site not specified Kidney stone Calculus of kidney documented in this encounter Care Teams Lettuce Cutter Relationship Specialty [place] [address] [place] [address] PCP - General 03/05/23 Carlos Joyner MD [address] [place] [address] Urology 12/09/19 Jadon Murray MD [facility] [address] [facility] 550 [place] [address] Referring Physician Pediatric Surgery 12/09/19 Maru Villagomez, RN Registered Nurse 12/10/19 Ang Slade MD [address] [facility] [address] [place], [place] 378[address] Urology 04/24/20 Carlos Joyner MD [address] [place] [address] [id number] Assigned Surgical Provider 12/24/20 Ang Slade MD [address] [place] [address] [address] [place], [place] [id number] MD Urology 12/18/22 Lakshmi Wilhelm PA-C [address] [place] [address] [phone] Physician Fishing Line Winding Machine Operator Urology 02/03/23 [place] [address] [place] [address] Assigned PCP 02/06/23 Alissa Perez PA-C [address] [place] [address] [phone] Physician Fishing Line Winding Machine Operator Surgery 09/04/23 Lakshmi Wilhelm PA-C [address] [place] [address] [phone] Physician Fishing Line Winding Machine Operator Urology 09/16/23 Carlos Joyner MD [address] [place] [address] Urology 01/26/25 Jadon Floyd MD 909 [place], [place] 810415 Physician Physical Medicine and Rehabilitation 01/31/25 [place] [address] [place], [place] 0[address] Assigned Musculoskeletal Provider 02/15/25 Tanisha Marlow 4[address] [facility] [address] 03/30/24 documented as of this encounter
--- OUTSIDE RECORDS SUMMARY | 2025-02-21 11:05 | XMS_ITS | Encounter Summary ---
Author Organization [place] Address [address] [place] [address] Care Team Providers Care Paste Worker Name Role Phone Carlos Joyner MD Unavailable [phone] Jadon Murray MD Unavailable [phone] Maru Villagomez RN Unavailable Unavailable Ang Slade MD Unavailable [phone] Carlos Joyner MD Unavailable [phone] Ang Slade MD Unavailable [phone] Lakshmi WilhelmC Unavailable [phone] Heladio Willoughby MD Primary Care Provider [phone] Heladio Willoughby MD Unavailable Alissa Perez-Juan A Unavailable [phone] Lakshmi Wilhelm PA-C Unavailable [phone] Carlos Joyner MD Unavailable [phone] Jadon Floyd MD Unavailable [phone] Cayden Bejarano MD Unavailable Encounter Details Date Type Department Care Team (Late st Contact Info) Description 02/21/2025 11:05 AM CDT Lab [facility] [address] [place] [address] Recurrent UTI; Kidney stone Social [...] Answer Date Recorded PHQ-2 Score 0 09/13/2024 [facility] of Occupat ional Health - Occupational [...] Description 03/03/2025 9:00 AM CDT Office Visit [facility] [address] [phone] Jadon Floyd MD [address] [place] [address] [phone] 03/23/2025 12:45 PM CDT Appointment [facility] [address] [place] [address] [address] [place] [address] Cayden Bejarano [place] [address] [place] [address] 03/23/2025 1:30 PM CDT Hospital Encounter [facility] [address] [facility] [address] [place] [address] Cayden [place] [address] [place] [address] 03/25/2025 10:20 AM CDT Virtual Visit [facility] [place] [address] [place] [address] [place] [address] [place] [address] 04/04/2025 12:00 PM SCHOOL TRANSPORTATION SUPERVISOR Office Visit [facility] [place] [address] [place] [phone] Sugey Mccoy, NESTOR [facility] [address] [place], [place] [address]E [address] [place], [place] [address] 05/30/2025 10:20 AM SCHOOL TRANSPORTATION SUPERVISOR Appointment [facility] Imaging [address] [facility] [address] [place] [phone] Carlos Joyner MD [address] [place] [address] [phone] 05/31/2025 2:00 PM SCHOOL TRANSPORTATION SUPERVISOR Virtual Visit [facility] [place] [address] [facility] 4th [place] [phone] Carlos Joyner MD [address] [place] [address] 859705 07/25/2025 11:00 AM SCHOOL TRANSPORTATION SUPERVISOR Office Visit [address] [address] [place] [address] [place] [address] documented as of this encounter [...] and differential (02/21/2025 11:26 AM CDT) Pathologist [facility] WBC Count 8.85 4.00 - 11.00 10e3/uL [...] - BLOOD ORDERABLES Fin al Result LABORATORY [facility] Acute Care Lab [address] [facility] Lab (1st floor, no room number) [place] [address], [facility] * Hepatic panel (Albumin, ALT, AST, Bili, [...] ORDERABLES Fin al Result Performing Organization Address City/[facility]/ZIP Co de Phone Number [facility] Care Lab [address] [employer] Lab (1st floor, no room number) [place] [address] * Reticulocyte count (02/21/2025 11:26 AM CDT) [facility] % Reticulocyte 1.82 0.50 - 2.00 % 02/21/2025 12:13 PM CDT LABORATORY Absolute Reticulocyte 0.0865 0.0250 - 0.0950 10e6/uL 02/21/2025 12:13 PM CDT [facility] Blood STRUCTURE OF RIGHT UPPER LIMB / Unknown Venipuncture / Unknown 02/21/2025 11:26 AM CDT 02/21/2025 11:27 AM CDT Carlos Joyner MD LAB - BLOOD ORDERABLES Fin al Result [facility] Acute Care Lab [address] Lab (1st floor, no room number) [place] [address] * (ABNORMAL) Basic metabolic panel (Ca, Cl, CO2, Creat, Gluc, K, Na, BUN) (02/21/2025 11:26 AM CDT) Pathologist [facility] Sodium 140 135 - 145 mmol/L 02/21/2025 [...] - BLOOD ORDERABLES Fin al Result LABORATORY [facility] Acute Care Lab [address] [facility] Lab (1st floor, no room number) [place] [address], [facility] * (ABNORMAL) Urine Culture Aerobic Bacterial (02/21/2025 11:15 AM CDT) Pathologist [facility] Culture 50,000-100,000 CFU/mL Enterococcus faecalis(A) 02/24/2025 10:10 [...] and Susceptibility testing requested by Dr Joyner [phone] Multiple morphotypes present with no predominant organism. [...] ug/mL: Susceptible Carlos Joyner MD LAB - [place] [facility] ORDERA BLES Edited Result - Final [facility] IDD LABORATORY [facility] Inf. Diseases Diag. Lab 500 [facility], [address] [place] [phone] documented in this encounter Visit Diagnoses Diagnosis Recurrent UTI Urinary tract infection, site not specified Kidney stone Calculus of kidney documented in this encounter Care Teams Paste Worker Relationship Specialty [place] [address] [place] [address] PCP - General 03/05/23 Carlos Joyner MD 9 [place] [address] Urology 12/09/19 Jadon Murray MD [facility] [address] [facility] 550 [place] [address] Referring Physician Pediatric Surgery 12/09/19 Maru Villagomez, RN Registered Nurse 12/10/19 Ang Slade MD [address] [facility] 394 [place], [place] [address] Urology 04/24/20 Carlos Joyner MD [address] [place] [address] [id number] Assigned Surgical Provider 12/24/20 Ang Slade MD [address] [place] [address] 394 [place], [place] 232465 MD Urology 12/18/22 Lakshmi Wilhelm PA-C [address] [place] [address] [phone] Physician Craft Superintendent Urology 02/03/23 [place] [address] [place] [address] Assigned PCP 02/06/23 Alissa Perez PA-C [address] [place] [address] [phone] Physician Craft Superintendent Surgery 09/04/23 Lakshmi Wilhelm PA-C [address] [place] [address] [phone] Physician Craft Superintendent Urology 09/16/23 Carlos Joyner MD 909 [place] [address] Urology 01/26/25 Jadon Floyd MD 909 [place], [place] [phone] Physician Physical Medicine and Rehabilitation 01/31/25 [place] [address] [place], [place] [phone] Assigned Musculoskeletal Provider 02/15/25 Tanisha Marlow 4[address] [facility] [address] 03/30/24 documented as of this encounter
--- OUTSIDE RECORDS SUMMARY | 2025-02-22 14:30 | XMS_ITS | Encounter Summary ---
Author Organization [facility] Address [address] [place] [address] Care Team Providers Care Inspector Circuitry Negative Name Role Phone Carlos Joyner MD Unavailable [phone] Jadon Murray MD Unavailable [phone] Maru Villagomez RN Unavailable Unavailable Ang Slade MD Unavailable [phone] Carlos Joyner MD Unavailable [phone] Ang Slade MD Unavailable [phone] Lakshmi Wilhelm PA-C Unavailable [phone] Heladio Willoughby MD Primary Care Provider [phone] Heladio Willoughby MD Unavailable Alissa Perez-Juan A Unavailable [phone] Lakshmi Wilhelm PA-C Unavailable [phone] Carlos Joyner MD Unavailable [phone] Jadon Floyd MD Unavailable [phone] Cayden Bejarano MD Unavailable Encounter Details Date Type Department Care Team (Latest Contact Info) Description 02/22/2025 2:30 PM CDT Therapy Visit [facility] [address] [facility] [address] [place] [address] Eliza Carty, OT [address] [place] [address] Injury of triangular fibrocartilage complex (TFCC) of [...] Date Recorded PHQ-2 Score 0 09/13/2024 [facility] Occupat ional Health - Occupational Stress [...] Description 03/03/2025 9:00 AM CDT Office Visit [facility] [address] [phone] Jadon Floyd MD [address] [place] [address] 658265 03/23/2025 12:45 PM CDT Appointment [facility] [address] [place] [address] Cayden Bejarano MD [address] [place] [address] 300 [place], [place] 473287 03/23/2025 1:30 PM CDT Hospital Encounter [facility] [address] [place] [address] [place] [address] [place] [address] 03/25/2025 10:20 AM CDT Virtual Visit [facility] [place] [address] [facility] [address] [place] [address] [place] [address] [place] [address] 04/04/2025 12:00 PM WHITE GOODS APPLIANCE TECH Office Visit [facility] [place] [address] [place] [phone] Sugey Mccoy APRN [facility] [address] [place] [address] [address] [place] [address] 05/30/2025 10:20 AM WHITE GOODS APPLIANCE TECH Appointment [facility] [address] [facility] [address] [place] [address] Carlos Joyner MD [address] [place] [address] 545415 05/31/2025 2:00 PM WHITE GOODS APPLIANCE TECH Virtual Visit [facility] Urology Clinic [address] 4th [place] [phone] Carlos Joyner MD [address] [place] [address] 07/25/2025 11:00 AM WHITE GOODS APPLIANCE TECH Office Visit [address] [address] [place] [address] [place] [address] documented as of this encounter Visit Diagnoses Diagnosis 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, initial encounter- Primary Right wrist pain Pain in joint, forearm documented in this encounter Care Teams Inspector Circuitry Negative Relationship Specialty [place] [address] [place] [address] PCP - General 03/05/23 Carlos Joyner MD [address] [place] [address] Urology 12/09/19 Jadon Murray MD [facility] [address] [address] Referring Physician Pediatric Surgery 12/09/19 Maru Villagomez, RN Registered Nurse 12/10/19 Ang Slade MD [address] [place] [address] Urology 04/24/20 Carlos Joyner MD [address] [place] [address] 54232 Assigned Surgical Provider 12/24/20 Ang Slade MD [address] [place] [address] 39968 Urology 12/18/22 Lakshmi Wilhelm PA-C [address] [place] [address] 063555 Physician Vascular Tech Urology 02/03/23 [place] [address] [place] [address] Assigned PCP 02/06/23 Alissa Perez PA-C [address] [place] [address] 719715 Physician Vascular Tech Surgery 09/04/23 Lakshmi Wilhelm PA-C [address] [place] [address] 21498 Physician Vascular Tech Urology 09/16/23 Carlos Joyner MD [address] [place] [address] 902975 Urology 01/26/25 Jadon Floyd MD [address] [place] [address] 522765 Physician Physical Medicine and Rehabilitation 01/31/25 [place] [address] [place] [address] Assigned Musculoskeletal Provider 02/15/25 Tanisha Marlow [address] [facility] [address] 03/30/24 documented as of this encounter
--- OUTSIDE RECORDS SUMMARY | 2025-02-22 14:30 | XMS_ITS | Encounter Summary ---
Author Organization [facility] Address [address] [place] [address] Care Team Providers Care Center Hole Reamer Name Role Phone Carlos Joyner MD Unavailable [phone] Jadon Murray MD Unavailable [phone] Maru Villagomez RN Unavailable Unavailable Ang Slade MD Unavailable [phone] Carlos Joyner MD Unavailable [phone] Ang Slade MD Unavailable [phone] Lakshmi Wilhelm PA-C Unavailable [phone] Heladio Willoughby MD Primary Care Provider [phone] Heladio Willoughby MD Unavailable Alissa Perez-Juan A Unavailable [phone] Lakshmi Wilhelm PA-C Unavailable [phone] Carlos Joyner MD Unavailable [phone] Jadon Floyd MD Unavailable [phone] Cayden Bejarano MD Unavailable Encounter Details Date Type Department Care Team (Latest Contact Info) Description 02/22/2025 2:30 PM CDT Therapy Visit [facility] [address] [facility] [address] [place] [address] Eliza Carty, OT [address] [place] [address] Injury of triangular fibrocartilage complex (TFCC) of [...] than three times a week 07/16/2024 Attends Pentecostalism Services Not on file 07/16 Active Member of Clubs or Organizations Not on f ile 07/16/2024 Attends Club or Organization Meetings Not on antelmo e 07/16/2024 Marital Status Not on file 07/16/2024 PHQ-2 Answer Date Recorded PHQ-2 Score 0 09/13/2024 [facility] Occupat ional Health - [...] Description 03/03/2025 9:00 AM CDT Office Visit [facility] Physical Medicine and Rehabilitation Clinic [address] [phone] Jadon Floyd MD [address] [place] [address] 275695 03/23/2025 12:45 PM CDT Appointment [facility] [address] [place] [address] Cayden Bejarano MD [address] [place] [address] 300 [place], [place] 6[address] 03/23/2025 1:30 PM CDT Hospital Encounter [facility] [address] [place] [address] [place] [address] [place] [address] 03/25/2025 10:20 AM CDT Virtual Visit [facility] Sports Medicine [facility] [place] [address] [facility] [address] [place] [address] [place] [address] [place] [address] 04/04/2025 12:00 PM STOCK REPLENISHER Office Visit [facility] [place] [address] [facility] [place] [phone] Sugey Mccoy APRN [facility] [address] [place] [address] [address] [place] [address] 05/30/2025 10:20 AM STOCK REPLENISHER Appointment [facility] [address] [facility] [address] [place] [address] Carlos Joyner MD [address] [place] [address] 388205 05/31/2025 2:00 PM STOCK REPLENISHER Virtual Visit [facility] Urology Clinic [address] 4th [place] [phone] Carlos Joyner MD [address] [place] [address] 07/25/2025 11:00 AM STOCK REPLENISHER Office Visit [address] [address] [place] [address] [place] [address] documented as of this encounter Visit Diagnoses Diagnosis 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, initial encounter- Primary Right wrist pain Pain in joint, forearm documented in this encounter Care Teams Center Hole Reamer Relationship Specialty [place] [address] [place] [address] PCP - General 03/05/23 Carlos Joyner MD [address] [place] [address] Urology 12/09/19 Jadon Murray MD [facility] [address] [address] Referring Physician Pediatric Surgery 12/09/19 Maru Villagomez, RN Registered Nurse 12/10/19 Ang Slade MD [address] [place] [address] Urology 04/24/20 Carlos Joyner MD [address] [place] [address] 39423 Assigned Surgical Provider 12/24/20 Ang Slade MD [address] [place] [address] Urology 12/18/22 Lakshmi Wilhelm PA-C [address] [place] [address] 515995 Physician Nursing Faculty Urology 02/03/23 [place] [address] [place] [address] Assigned PCP 02/06/23 Alissa Perez PA-C [address] [place] [address] 741345 Physician Nursing Faculty Surgery 09/04/23 Lakshmi Wilhelm PA-C [address] [place] [address] 28704 Physician Nursing Faculty Urology 09/16/23 Carlos Joyner MD [address] [place] [address] 166875 Urology 01/26/25 Jadon Floyd MD [address] [place] [address] 972865 Physician Physical Medicine and Rehabilitation 01/31/25 [place] [address] [place] [address] Assigned Musculoskeletal Provider 02/15/25 Tanisha Marlow 4120 [facility] [address] 03/30/24 documented as of this encounter
--- OUTSIDE RECORDS SUMMARY | 2025-02-25 10:45 | XMS_ITS | Encounter Summary ---
Author Organization [facility] Address [address] [place] [address] Care Team Providers Care Flight Operations Manager Name Role Phone Carlos Joyner MD Unavailable [phone] Jadon Murray MD Unavailable [phone] Maru Villagomez RN Unavailable Unavailable Ang Slade MD Unavailable [phone] Carlos Joyner MD Unavailable +[phone] Ang Slade MD Unavailable [phone] Lakshmi WilhelmC Unavailable [phone] Heladio Willoughby MD Primary Care Provider [phone] Heladio Willoughby MD Unavailable Alissa Perez PA-Juan A Unavailable [phone] Lakshmi Wilhelm PA-C Unavailable [phone] Carlos Joyner MD Unavailable +[phone] Jadon Floyd MD Unavailable [phone] Cayden Bejarano MD Unavailable Reason for Visit * Reason Comments RECHECK Encounter Details Date Type Department Care Team (Late st Contact Info) Description 02/25/2025 10:45 AM CDT Virtual Visit [facility] Urology [address] 4th [place] [address] Estrella Martinez, HEDDLER TIER 420 [facility], RO[address] [place] [address] Neurogenic bladder (Primary Dx); Recurrent UTI Social [...] 07/16/2024 Attends [employer] Not on file 07/16 Active Member of Clubs or Organizations Not on f ile 07/16/2024 Attends Club or Organization Meetings Not on antelmo e 07/16/2024 Marital Status Not on file 07/16/2024 PHQ-2 Answer Date Recorded PHQ-2 Score 0 09/13/2024 [facility] - [...] may be seen on withdrawal of saline. [email or web address].[email or web address] sands express/bladder-irrigation Signs of UTI - fever, chills, altered [...] location): On-site Platform used for Video Visit: [facility] HPI: Laina Escudero is a 24 [...] me in 1 year. Estrella Martinez NP [facility] [place] Additional Coding Information: Time spent: I spent a total of 40 minutes on the day of the visit. Time spent by me today doing chart review, history and exam, documentation and further activities per the note documented in this encounter Nursing Notes * Martha Garduno - 02/25/2025 10:45 AM CDT Current patient location: [place] Is the patient currently in the state of [place]? YES Visit mode: VIDEO If the visit is dropped, the patient can be reconnected by:VIDEO VISIT: Text to cell phone: Telephone Information: Mobile Not on file. Will anyone else be joining the visit? NO (If patient encounters technical issues they should call [phone] :[phone]) Are changes needed to the allergy or [...] Care System [facility] [address] [phone] Jadon Floyd MD [address] [place] [address] 266[address] 03/23/2025 12:45 PM CDT Appointment [facility] [address] [place] [address] [place] [address] [address] [place] [address] 03/23/2025 1:30 PM CDT Hospital Encounter [facility] [address] [place] [address] [place] [address] [address] [place] [address] 03/25/2025 10:20 AM CDT Virtual Visit [facility] [place] [address] [place] [address] [place] [address] [place] [address] 04/04/2025 12:00 PM BUSINESS CONTINUITY COORDINATOR Office Visit [facility] [place] [address] [place] [address] Sugey Mccoy APRN [facility] [address] [place] [address] 05/30/2025 10:20 AM BUSINESS CONTINUITY COORDINATOR Appointment [facility] [address] [place] [address] Carlos Joyner MD [address] [place] [address] 644915 05/31/2025 2:00 PM BUSINESS CONTINUITY COORDINATOR Virtual Visit [facility] [place] [address] [place] [address] 4th [place] [address] Carlos Joyner MD [address] [place] [address] 2605[address] 07/25/2025 11:00 AM BUSINESS CONTINUITY COORDINATOR Office Visit [facility] [address] [place] [phone] [place] [address] [place] [address] documented as of this encounter Visit Diagnoses Diagnosis Neurogenic bladder- Primary Neurogenic bladder, NOS Recurrent UTI Urinary tract infection, site not specified documented in this encounter Care Teams Flight Operations Manager Relationship Specialty Start Date End Date [place] [address] [place] [address] PCP - General 03/05/23 Carlos Joyner MD [address] [place] [address] Urology 12/09/19 Jadon Murray MD [facility] [address] [address] Referring Physician Pediatric Surgery 12/09/19 Maru Villagomez, RN Registered Nurse 12/10/19 Ang Slade MD [address] [place] [address] Urology 04/24/20 Carlos Joyner MD [address] [place] [address] Assigned Surgical Provider 12/24/20 Ang Slade MD [address] [place] [address] Urology 12/18/22 Lakshmi Wilhelm PA-C [address] [place] [address] Physician Optics Technical Officer Urology 02/03/23 [place] [address] [facility] [place] [address] Assigned PCP 02/06/23 Alissa Perez PA-C [address] [place] [address] 883115 Physician Optics Technical Officer Surgery 09/04/23 Lakshmi Wilhelm PA-C [address] [place] [address] 200565 Physician Optics Technical Officer Urology 09/16/23 Carlos Joyner MD [address] [place] [address] 160295 Urology 01/26/25 Jadon Floyd MD [address] [place] [address] 016685 Physician Physical Medicine and Rehabilitation 01/31/25 [place] [address] [place] [address] Assigned Musculoskeletal Provider 02/15/25 Tanisha Marlow [address] [place] [address] 03/30/24 documented as of this encounter
--- OUTSIDE RECORDS SUMMARY | 2025-02-25 10:45 | XMS_ITS | Encounter Summary ---
Author Organization [facility] Address [address] [place] [address] Care Team Providers Care Generator Switchboard Operator Name Role Phone Carlos Joyner MD Unavailable [phone] Jadon Murray MD Unavailable [phone] Maru Villagomez RN Unavailable Unavailable Ang Slade MD Unavailable [phone] Carlos Joyner MD Unavailable [phone] Ang Slade MD Unavailable [phone] Lakshmi WilhelmC Unavailable [phone] Heladio Willoughby MD Primary Care Provider [phone] Heladio Willoughby MD Unavailable Alissa Perez PA-Juan A Unavailable [phone] Lakshmi Wilhelm PA-C Unavailable [phone] Carlos Joyner MD Unavailable +[phone] Jadon Floyd MD Unavailable [phone] Cayden Bejarano MD Unavailable Reason for Visit * Reason Comments RECHECK Encounter Details Date Type Department Care Team (Late st Contact Info) Description 02/25/2025 10:45 AM CDT Virtual Visit [facility] Urology [address] 4th [place] [address] Estrella Martinez, GENERAL LEDGER ACCOUNTANT 420 [facility], RO[address] [place] [address] Neurogenic bladder (Primary Dx); Recurrent UTI Social [...] Answer Date Recorded PHQ-2 Score 0 09/13/2024 [facility] of Occupat ional Health - [...] may be seen on withdrawal of saline. [email or web address] Signs of UTI - fever, chills, altered [...] location): On-site Platform used for Video Visit: [facility] HPI: Laina Escudero is a 24 year [...] me in 1 year. Estrella Martinez NP [facility] [place] Additional Coding Information: Time spent: I spent a total of 40 minutes on the day of the visit. Time spent by me today doing chart review, history and exam, documentation and further activities per the note documented in this encounter Nursing Notes * Martha Garduno - 02/25/2025 10:45 AM CDT Current patient location: [place] Is the patient currently in the state of [place]? YES Visit mode: VIDEO If the visit is dropped, the patient can be reconnected by:VIDEO VISIT: Text to cell phone: Telephone Information: Mobile Not on file. Will anyone else be joining the visit? NO (If patient encounters technical issues they should call [phone] :[phone]) Are changes needed to the allergy or medication list? No Are refills needed on medications prescribed by this physician? NO Rooming Documentation: Questionnaire(s) completed Reason for visit: RECHECK Martha Garduno VVF documented in this encounter Plan of Treatment Upcoming Encounters Date Type Department Care Team (Late st Contact Info) Description 03/03/2025 9:00 AM CDT Office Visit [facility] Rehabilitation Clinic [address] [phone] Jadon Floyd MD [address] [place] [address] 271395 03/23/2025 12:45 PM CDT Appointment [facility] [address] [place] [address] [place] [address] [facility] [place] [address] 03/23/2025 1:30 PM CDT Hospital Encounter [facility] [address] [place] [address] [place] [address] [address] [place] [address] 03/25/2025 10:20 AM CDT Virtual Visit [facility] Medicine [facility] [place] [address] [place] [address] [place] [address] [place] [address] 04/04/2025 12:00 PM VETERINARY RECEPTIONIST Office Visit [facility] [place] [address] [place] [address] Sguey Mccoy APRN [facility] [address] [place] [address] 05/30/2025 10:20 AM VETERINARY RECEPTIONIST Appointment [facility] [address] [place] [address] Carlos Joyner MD [address] [place] [address] 064985 05/31/2025 2:00 PM VETERINARY RECEPTIONIST Virtual Visit [facility] [place] [address] [place] [address] 4th [place] [address] Carlos Joyner MD [address] [place] [address] 374465 07/25/2025 11:00 AM VETERINARY RECEPTIONIST Office Visit [facility] [address] [place] [phone] [place] [address] [place] [address] documented as of this encounter Visit Diagnoses Diagnosis Neurogenic bladder- Primary Neurogenic bladder, NOS Recurrent UTI Urinary tract infection, site not specified documented in this encounter Care Teams Generator Switchboard Operator Relationship Specialty Start Date End Date Helad[place] [address] [place] [address] PCP - General 03/05/23 Carlos Joyner MD [address] [place] [address] Urology 12/09/19 Jadon Murray MD [facility] [address] [address] Referring Physician Pediatric Surgery 12/09/19 Maru Villagomez, RN Registered Nurse 12/10/19 Ang Slade MD [address] [place] [address] Urology 04/24/20 Carlos Joyner MD [address] [place] [address] Assigned Surgical Provider 12/24/20 Ang Slade MD [address] [place] [address] Urology 12/18/22 Lakshmi Wilhelm PA-C [address] [place] [address] Physician Zipper Sewing Machine Operator Urology 02/03/23 [place] [address] [facility] [place] [address] Assigned PCP 02/06/23 Alissa Perez PA-C [address] [place] [address] 417285 Physician Zipper Sewing Machine Operator Surgery 09/04/23 Lakshmi Wilhelm PA-C [address] [place] [address] 360665 Physician Zipper Sewing Machine Operator Urology 09/16/23 Carlos Joyner MD [address] [place] [address] 085855 Urology 01/26/25 Jadon Floyd MD [address] [place] [address] 389085 Physician Physical Medicine and Rehabilitation 01/31/25 [place] [address] [place] [address] Assigned Musculoskeletal Provider 02/15/25 Tanisha Marlow [address] [place] [address] 03/30/24 documented as of this encounter
--- OUTSIDE RECORDS SUMMARY | 2025-02-26 23:12 | XMS_ITS | Encounter Summary ---
Author Organization [facility] Address [address] [place] [address] Care Team Providers Care Social Security Specialist Name Role Phone Carlos Joyner MD Unavailable [phone] Jadon Murray MD Unavailable [phone] Maru Villagomez RN Unavailable Unavailable Ignacia Duran MD Primary Care Provider [phone] Ang Slade MD Unavailable [phone] Carlos Jonyer MD Unavailable +[phone] Ang Slade MD Unavailable [phone] Lakshmi Wilhelm-C Unavailable [phone] Heladio Willoughby MD Primary Care Provider [phone] Heladio Willoughby MD Unavailable Alissa Perez PA-C Unavailable [phone] LaLakshmi morales-C Unavailable [phone] Aidee Valero PA-C Unavailable [phone] Carlos Joyner MD Unavailable +[phone] Jadon Floyd MD Unavailable [phone] Cayden Bejarano MD Unavailable Encounter Details Date Type Department Care Team (Late st Contact Info) Description 12/30/2022 [facility] [place] [facility] Urology [address] [place] [address] Analisa Palacio RN Social History Tobacco Use [...] Description 03/03/2025 9:00 AM CDT Office Visit [facility] [address] [place] [phone] Jadon Floyd MD [address] [place] [address] 03/23/2025 12:45 PM CDT Appointment [facility] Imaging [address] [place] [address] [address] [place] [address] Cayden Bejarano MD [address] [place] [address] [address] [place] [address] 03/23/2025 1:30 PM CDT Hospital Encounter [facility] [address] [place] [address] [place] [address] Cayden Bejarano MD [address] [place] [address] [address] [place] [address] 03/25/2025 10:20 AM CDT Virtual Visit [facility] [address] [place] [address] [place] [address] [place] [address] 04/04/2025 12:00 PM PRECAST MOLDER Office Visit [facility] [place] [address] [place] [address] Sugey Mccoy, DIRT CONTRACTOR [facility] [address] [place], [place] [address]E S [address] [place] [address] 05/30/2025 10:20 AM PRECAST MOLDER Appointment [facility] [address] [facility] [address] [place] [address] Carlos Joyner MD [address] [place] [address] 769065 05/31/2025 2:00 PM PRECAST MOLDER Virtual Visit [facility] [place] [address] [facility] 4th [place] [phone] Carlos Joyner MD [address] [place] [address] 106375 07/25/2025 11:00 AM PRECAST MOLDER Office Visit [address] [address] [place] [address] [place] [address] documented as of this encounter Visit Diagnoses Not on filedocumented in this encounter Additional Health Concerns Infection Onset Date Last Indicated Resolved Time MRSA Comment:Added from external infection. Pt has had Staph infections but never MRSA from Care everywhere chart review. Removing MRSA 9.14.23 06/17/2019 02/06/2023 9:41 AM C DT documented as of this encounter Care Teams Social Security Specialist Relationship Specialty Start Date End Date Ignacia Duran MD PCP - General Pediatrics 01/20/20 03/04/23 [place] [address] [place] [address] PCP - General 03/05/23 Carlos Joyner MD [address] [place] [address] Urology 12/09/19 Jadon Murray MD [facility] [address] [facility] 550 [place], [place] [phone] Referring Physician Pediatric Surgery 12/09/19 Maru Villagomez, RN Registered Nurse 12/10/19 Ang Slade MD [address] [place] [address] 757495 Urology 04/24/20 Carlos Joyner MD [address] [place] [address] 784765 Assigned Surgical Provider 12/24/20 Ang Slade MD [address] [place] [address] 394 [place] [address] Urology 12/18/22 Lakshmi Wilhelm PA-C [address] [place] [address] 26097 Physician Spray Mixer Urology 02/03/23 [place] [address] [place] [address] Assigned PCP 02/06/23 Alissa Perez PA-C [address] [place] [address]452 Physician Spray Mixer Surgery 09/04/23 Lakshmi Wilhelm PA-C [address] [place] [address] 295[address] Physician Spray Mixer Urology 09/16/23 Aidee Valero PA-C [address] [place] [address] Assigned Musculoskeletal Provider 04/17/24 02/14/25 Carlos Joyner MD [address] [place] [address] Urology 01/26/25 Jadon Floyd MD [address] [place] [address] 65586 Physician Physical Medicine and Rehabilitation 01/31/25 [place] [address] [place] [address] Assigned Musculoskeletal Provider 02/15/25 Tanisha Marlow 4120 [facility] [address] 03/30/24 documented as of this encounter
--- OUTSIDE RECORDS SUMMARY | 2025-02-26 23:12 | XMS_ITS | Encounter Summary ---
Author Organization [place] Address [address] [place] [address] Care Team Providers Care Grass Cutter Name Role Phone Carlos Joyner MD Unavailable [phone] Jadon Murray MD Unavailable +[phone] Maru Villagomez RN Unavailable Unavailable Ignacia Duran MD Primary Care Provider [phone] Ang Slade MD Unavailable +[phone] Carlos Joyner MD Unavailable + [phone] Ang Slade MD Unavailable +[phone] Lakshmi Wilhelm-C Unavailable +[phone] Heladio Willoughby MD Primary Care Provider [phone] Heladio Willoughby MD Unavailable Alissa Perez PA-C Unavailable [phone] LaLakshmi morales-C Unavailable [phone] Aidee Valero PA-C Unavailable [phone] Carlos Joyner MD Unavailable +[phone] Jadon Floyd MD Unavailable [phone] Cayden Bejarano MD Unavailable Encounter Details Date Type Department Care Team (Late st Contact Info) Description 01/07/2023 [facility] U[facility] [address] [place] [address] Analisa Palacio RN Social History Tobacco Use [...] Description 03/03/2025 9:00 AM CDT Office Visit [facility] [address] 3rd [place] [address] Jadon Floyd MD [address] [place] [address] 03/23/2025 12:45 PM CDT Appointment [facility] [address] [place] [address] [address] [place] [address] Cayden Bejarano MD [address] [place] [address] [address] [place] [address] 03/23/2025 1:30 PM CDT Hospital Encounter [facility] [address] [place] [address] Cayden Bejarano MD [address] [place] [address] [address] [place] [address] 03/25/2025 10:20 AM CDT Virtual Visit [facility] Sports Medicine Clinic [address] [place] [address] [place] [address] [place] [address] 04/04/2025 12:00 PM EVENT COORDINATOR Office Visit [facility] [address] [place] [address] Sugey Mccoy, ASSEMBLER [employer]S [facility] [address] [place], [place] [address]E [address] [place] [address] 05/30/2025 10:20 AM EVENT COORDINATOR Appointment [facility] [address] [facility] [address] [place] [address] Carlos Joyner MD [address] [place] [address] 543685 05/31/2025 2:00 PM EVENT COORDINATOR Virtual Visit [facility] [address] [facility] 4th [place] [address] Carlos Joyner MD [address] [place] [address] 214795 07/25/2025 11:00 AM EVENT COORDINATOR Office Visit [address] [address] [place] [address] [place] [address] documented as of this encounter [...] General Pediatrics 01/20/20 03/04/23 [place] [address] [place] [address] PCP - General 03/05/23 Carlos Joyner MD [address] [place] [address] Urology 12/09/19 Jadon Murray MD [facility] [address] [facility] 550 [place], [place] [phone] Referring Physician Pediatric Surgery 12/09/19 Maru Villagomez, RN Registered Nurse 12/10/19 Ang Slade MD [address] [place] [address] 761585 Urology 04/24/20 Carlos Joyner MD [address] [place] [address] 336245 Assigned Surgical Provider 12/24/20 Ang Slade MD [address] [place] [address] 394 [place] [address] Urology 12/18/22 Lakshmi Wilhelm PA-C [address] [place] [address] Physician Mill Platform Supervisor Urology 02/03/23 [place] [address] [place] [address] Assigned PCP 02/06/23 Alissa Perez PA-C [address] [place] [address] Physician Mill Platform Supervisor Surgery 09/04/23 Lakshmi Wilhelm PA-C [address] [place] [address] Physician Mill Platform Supervisor Urology 09/16/23 Aidee Valero PA-C [address] [place] [address] Assigned Musculoskeletal Provider 04/17/24 02/14/25 Carlos Joyner MD [address] [place] [address] Urology 01/26/25 Jadon Floyd MD [address] [place] [address] Physician Physical Medicine and Rehabilitation 01/31/25 [place] [address] [place] [place] [address] Assigned Musculoskeletal Provider 02/15/25 Tanisha Marlow 4120 [facility] [address] 03/30/24 documented as of this encounter
--- OUTSIDE RECORDS SUMMARY | 2025-02-26 23:13 | XMS_ITS | Clinical Summary ---
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 Resolved Problems Problem Noted Date Diagnosed Date Resolved Date Adjustment disorder with mix ed disturbance of emotions and conduct 07/04/2011 11/23/2018 Immunizations Immunization Administration Dates Next Due DTaP 01/18/2008,05/06/2005 [id number] (Pediarix) 05/27/2003,03/21/2003,0 2002 HIB PRP-T (ActHIB,Hiberix) 05/27/2003,03/21/2003 [...] on file Legal Sex Female 6:29 AM INSURANCE SALESPERSON Gender Identity Not on file Sexual Orientation [...] Comments Blood Pressure 123/80 07/12/2021 1:30 PM INSURANCE SALESPERSON Pulse 98 07/12/2021 1:30 PM INSURANCE SALESPERSON Temperature 36.9 C (98.5 F) 07/12/2021 1:30 PM INSURANCE SALESPERSON Respiratory Rate 18 07/03/2015 5:27 PM INSURANCE SALESPERSON Oxygen Saturation 98% 07/12/2021 1:30 PM INSURANCE SALESPERSON Inhaled Oxygen Concentration - - Weight 61.2 kg (135 lb) 07/03/2015 5:27 PM INSURANCE SALESPERSON Height - - Body Mass Index - - Plan of Treatment Health Maintenance Due Date Last Done Comments HIV for age 15-65 2017 HPV series for age 9-45 (3 - 3-dose series) 09/09/2019 06/17/2019, 12/18/2017 BMI (ht and wt on same day) for age 18+ 2020 Hepatitis C screening for age 18-79 2020 Depression screening for age 12+ 01/12/2021 01/13/2020, 01/11/2020, 12/29/2018, Additional history exists Pap test for age 21-65 09/17/2023 Tetanus booster 01/16/2025 01/16/2015, 01/16/2015 Influenza Vaccine (#1) 2025 , 03/22/2020, 06/17/2019, Additional history exists RSV vaccine for adults or (1 - 1-dose 75+ series) 2077 Hepatitis B series for 19+ Completed 05/27, 03/21/2003, 2002 Pneumococcal series for age 6-49 Aged Out 05/27/2003, 03/21/2003, 2002 No longer eligible based on patient's age to complete this topic COVID-19 vaccine series Completed 04/14/20, 03/21/2023, 05/02/2022, Additional history exists Insurance MEDICAID MEDICARE PART A HB ONLY MEDICARE PART B HB ONLY MEDICARE PB ONLY Member Subscriber Plan / Payer (Ef fective 2022-Present) Name:Laina Escudero Member ID:[id number] Relation to Subscriber:Self Name:Laina Escudero Subscriber ID:[id number] Payer ID:Not on file Group ID:Not on file Type:Not on file Address: ATTN: [id number] [place] [address] Advance Directives Documents on File Type Date Recorded Patient Director Of Automation Expl anation Power of Spanish Literature Professor 06/24/2023 1:00 PM Care Teams Informatics Pharmacist Relationship Specialty Start Date End Date Heladio Willoughby MD PCP - General Family Practice 10/04/24
--- OUTSIDE RECORDS SUMMARY | 2025-02-26 23:13 | XMS_ITS | Encounter Summary ---
Author Organization [place] Address [address] [place] [address] Care Team Providers Care Grocery Checker Name Role Phone Carlos Joyner MD Unavailable [phone] Jadon Murray MD Unavailable [phone] Maru Villagomez RN Unavailable Unavailable Ignacia Duran MD Primary Care Provider [phone] Ang Slade MD Unavailable [phone] Carlos Joyner MD Unavailable +[phone] Ang Slade MD Unavailable [phone] Lakshmi Wilhelm-C Unavailable +[phone] Heladio Willoughby MD Primary Care Provider [phone] Heladio Willoughby MD Unavailable Alissa Perez PA-C Unavailable [phone] AzLakshmi morales-C Unavailable [phone] Aidee Valero PA-C Unavailable [phone] Carlos Joyner MD Unavailable [phone] Jadon Floyd MD Unavailable [phone] Cayden Bejarano MD Unavailable Encounter Details Date Type Department Care Team (Late st Contact Info) Description 01/06/2023 [facility] [address] [place] [address] Lisette Mariee Social History Tobacco Use Types [...] [facility] [address] [phone] Jadon Floyd MD [address] [place] [address] 03/23/2025 12:45 PM CDT Appointment [facility] [address] [place] [address] [address] [place] [address] Cayden Bejarano MD [address] [place] [address] [address] [place] [address] 03/23/2025 1:30 PM CDT Hospital Encounter [facility] [address] [facility] [address] [place] [address] Cayden Bejarano MD [address] [place] [address] [address] [place] [address] 03/25/2025 10:20 AM CDT Virtual Visit [facility] [address] [place] [address] [place] [address] [place] [address] 04/04/2025 12:00 PM BRACE END MAINSPRING FORMER Office Visit [facility] [place] [address] [place] [address] Sugey Mccoy, SPOT CLEANER [facility] [address] [place], [place] [address]E [address] [place] [address] 05/30/2025 10:20 AM BRACE END MAINSPRING FORMER Appointment [facility] [address] [facility] [address] [place] [address] Carlos Joyner MD [address] [place] [address] 172265 05/31/2025 2:00 PM BRACE END MAINSPRING FORMER Virtual Visit [facility] [place] 909 [facility] 4th [place] [phone] Carlos Joyner MD [address] [place] [address] 481215 07/25/2025 11:00 AM BRACE END MAINSPRING FORMER Office Visit [address] [address] [place] [address] [place] [address] documented as of this encounter Visit Diagnoses Not on filedocumented in this encounter Additional Health Concerns Infection Onset Date Last Indicated Resolved Time MRSA Comment:Added from external infection. Pt has had Staph infections but never MRSA from Care everywhere chart review. Removing MRSA 9.14.23 06/17/2019 02/06/2023 9:41 AM C DT documented as of this encounter Care Teams Grocery Checker Relationship Specialty Start Date End Date Ignacia Duran MD PCP - General Pediatrics 01/20/20 03/04/23 [place] [address] [place] [address] PCP - General 03/05/23 Carlos Joyner MD [address] [place] [address] Urology 12/09/19 Jadon Murray MD [facility] 2530 [facility] 550 [place], [place] [phone] Referring Physician Pediatric Surgery 12/09/19 Maru Villagomez, RN Registered Nurse 12/10/19 Ang Slade MD [address] [place] [address] 394 [place], [place] 543155 Urology 04/24/20 Carlos Joyner MD [address] [place] [address] 130055 Assigned Surgical Provider 12/24/20 Ang Slade MD 420 [facility] 394 [place] [address] Urology 12/18/22 Lakshmi Wilhelm PA-C [address] [place] [address]357 Physician Barrel Plater Urology 02/03/23 [place] [address] [place] [address] Assigned PCP 02/06/23 Alissa Perez PA-C [address] [place] [address] Physician Barrel Plater Surgery 09/04/23 Lakshmi Wilhelm PA-C [address] [place] [address]2548 Physician Barrel Plater Urology 09/16/23 Aidee Valero PA-C [address] [place] [address] Assigned Musculoskeletal Provider 04/17/24 02/14/25 Carlos Joyner MD [address] [place] [address] Urology 01/26/25 Jadon Floyd MD [address] [place] [address] Physician Physical Medicine and Rehabilitation 01/31/25 [place] [address] [place] [address] Assigned Musculoskeletal Provider 02/15/25 Tanisha Marlow 4120 [facility] [address] 03/30/24 documented as of this encounter
--- OUTSIDE RECORDS SUMMARY | 2025-02-26 23:14 | XMS_ITS | Encounter Summary ---
Author Organization [place] Address [address] [place] [address] Care Team Providers Care Instructional Media Services Technician Name Role Phone Carlos Joyner MD Unavailable [phone] Jadon Murray MD Unavailable +[phone] Maru Villagomez RN Unavailable Unavailable Ang Slade MD Unavailable [phone] Carlos Joyner MD Unavailable +[phone] Ang Slade MD Unavailable [phone] Lakshmi Wilhelm-C Unavailable [phone] Heladio Willoughby MD Primary Care Provider [phone] Heladio Willoughby MD Unavailable Alissa Perez PA-C Unavailable [phone] Lakshmi Wilhelm-C Unavailable [phone] Aidee Valero PA-C Unavailable [phone] Carlos Joyner MD Unavailable +[phone] Jadon Floyd MD Unavailable [phone] Cayden Bejarano MD Unavailable Encounter Details Date Type Department Care Team (Late st Contact Info) Description 11/03/2024 [facility] [place] [address] [facility] 4th [place] [address] Carlos Joyner MD 9 [place] [address] Social History Tobacco Use Types Packs/Day Years [...] Date Recorded PHQ-2 Score 0 09/13/2024 [facility] - Occupational [...] 03/03/2025 9:00 AM CDT Office Visit [facility] [address] [phone] Jadon Floyd MD [address] [place] [address] 03/23/2025 12:45 PM CDT Appointment [facility] [address] [facility] [address] [place] [address] [place] [address] [place] [address] 03/23/2025 1:30 PM CDT Hospital Encounter [facility] [address] [place] [address] [place] [address] [place] [address] [place] [address] 03/25/2025 10:20 AM CDT Virtual Visit [facility] [place] [address] [place], [place] [address] [place] [address] [place] [address] [place] [address] 04/04/2025 12:00 PM LIQUOR BLENDER Office Visit [facility] [place] [address] [place] [address] Sugey Mccoy, ASSOCIATE PROFESSOR OF ENGLISH STEEL BURNER [address] [place], [place] [address] 05/30/2025 10:20 AM LIQUOR BLENDER Appointment [facility] [address] [place] [address] [place] [address] Carlos Joyner MD [address] [place] [address] 182435 05/31/2025 2:00 PM LIQUOR BLENDER Virtual Visit [facility] [place] 909 [facility] 4th [place] [address] Carlos Joyner MD [address] [place] [address] 52033455 07/25/2025 11:00 AM LIQUOR BLENDER Office Visit [address] [phone] [place] [address] [place] [address] documented as of this encounter Visit Diagnoses Not on filedocumented in this encounter Care Teams Instructional Media Services Technician Relationship Specialty Start Date End Date [place] [address] [place] [address] PCP - General 03/05/23 Carlos Joyner MD [address] [place] [address] Urology 12/09/19 Jadon Murray MD [facility] 2530 [facility] 550 [place] [address] Referring Physician Pediatric Surgery 12/09/19 Maru Villagomez, RN Registered Nurse 12/10/19 Ang Slade MD 420 [facility] 394 [place], [place] [address] Urology 04/24/20 Carlos Joyner MD [address] [place] [address] 096895 Assigned Surgical Provider 12/24/20 Ang Slade MD [address] [place] [address] 394 [place] [address] Urology 12/18/22 Lakshmi Wilhelm PA-C [address] [place] [address] 876025 Physician Law Researcher Urology 02/03/23 [place] [address] [place] [address] Assigned PCP 02/06/23 Alissa Perez PA-C [address] [place] [address] 843945 Physician Law Researcher Surgery 09/04/23 Lakshmi Wilhelm PA-C [address] [place] [address] 861225 Physician Law Researcher Urology 09/16/23 Aidee Valero PA-C [address] [place] [address] 68030 Assigned Musculoskeletal Provider 04/17/24 02/14/25 Carlos Joyner MD [address] [place] [address] Urology 01/26/25 Jadon Floyd MD [address] [place] [address] 125235 Physician Physical Medicine and Rehabilitation 01/31/25 [place] [address] [place] [address] Assigned Musculoskeletal Provider 02/15/25 Tanisha Marlow [address] [address] 03/30/24 documented as of this encounter
--- OUTSIDE RECORDS SUMMARY | 2025-02-26 23:14 | XMS_ITS | Encounter Summary ---
Author Organization [place] Address [address] [place] [address] Care Team Providers Care Station Tender Name Role Phone Carlos Joyner MD Unavailable [phone] Jadon Murray MD Unavailable [phone] Maru Villagomez RN Unavailable Unavailable Ang Slade MD Unavailable +[phone] Carlos Joyner MD Unavailable +[phone] Ang Slade MD Unavailable [phone] Lakshmi Wilhlem-C Unavailable [phone] Heladio Willoughby MD Primary Care Provider [phone] Heladio Willoughby MD Unavailable Alissa Perez PA-C Unavailable [phone] Lakshmi Wilhelm-Juan A Unavailable [phone] Aidee Valero PA-C Unavailable [phone] Carlos Joyner MD Unavailable +[phone] Jadon Floyd MD Unavailable [phone] Cayden Bejarano MD Unavailable Encounter Details Date Type Department Care Team (Late st Contact Info) Description 09/27/[address] [address] Lisette Mariee Social History Tobacco [...] than three times a week 07/16/2024 Attends Catholic Services Not on file 07/16 Active Member of Clubs or Organizations Not on f ile 07/16/2024 Attends Club or Organization Meetings Not on antelmo e 07/16/2024 Marital Status Not on file 07/16/2024 PHQ-2 Answer Date Recorded PHQ-2 Score 0 09/13/2024 [facility] - Occupational [...] [facility] [address] [place] [phone] Jadon Floyd MD [address] [place] [address] 03/23/2025 12:[address] [facility] [address] [facility] [address] [place] [address] [place] [address] [place] [address] 03/23/2025 1:30 PM CDT Hospital Encounter [facility] [address] [place] [address] [place] [address] Cayden [place]jar[place] [address] [place] [address] 03/25/2025 10:20 AM CDT Virtual Visit [facility] [place] [address] [place], [place] [address] [place] [address] [place] [address] [address] [place] [address] 04/04/2025 12:00 PM LIFT SLAB OPERATOR Office Visit [facility] [place] [address] [place] [address] Sugey Mccoy, LINUX SERVER ENGINEER [facility] [address] [place] [address] [address] [place] [address] 05/30/2025 10:20 AM LIFT SLAB OPERATOR Appointment [facility] [address] [facility] [address] [place] [address] Carlos Joyner MD [address] [place] [address] 05/31/2025 2:00 PM LIFT SLAB OPERATOR Virtual Visit [facility] [place] 9[address] [facility] 4th [place] [address] Carlos Joyner MD [address] [place] [address] 07/25/2025 11:00 AM LIFT SLAB OPERATOR Office Visit [facility] [address] [place] [address] [place] [address] [place], [place] 7898168 documented as of this encounter Visit Diagnoses Not on filedocumented in this encounter Care Teams Station Tender Relationship Specialty Start [place] [address] [place] [address] PCP - General 03/05/23 Carlos Joyner MD [address] [place] [address] Urology 12/09/19 Jadon Murray MD [facility] 2530 [facility] 550 [place] [address] Referring Physician Pediatric Surgery 12/09/19 Maru Villagomez, RN Registered Nurse 12/10/19 Ang Slade MD 420 [facility] 394 [place], [place] 7[address] MD Urology 04/24/20 Carlos Joyner MD [address] [place] [address] [phone] Assigned Surgical Provider 12/24/20 Ang Slade MD 420 [facility] 394 [place], [place] 590815 MD Urology 12/18/22 Lakshmi Wilhelm PA-C [address] [place] [address] 393605 Physician Applications Specialist Urology 02/03/23 [place] [address] [place] [address] Assigned PCP 02/06/23 Alissa Perez PA-C [address] [place] [address] 603085 Physician Applications Specialist Surgery 09/04/23 Lakshmi Wilhelm PA-C [address] [place] [address] 969385 Physician Applications Specialist Urology 09/16/23 Aidee Valero PA-C [address] [place] [address] Assigned Musculoskeletal Provider 04/17/24 02/14/25 Carlos Joyner MD [address] [place] [address] Urology 01/26/25 Jadon Floyd MD [address] [place] [address]62 Physician Physical Medicine and Rehabilitation 01/31/25 [place] [address] [place] [address] Assigned Musculoskeletal Provider 02/15/25 Tanisha Marlow 4120 [facility] [address] 03/30/24 documented as of this encounter
--- OUTSIDE RECORDS SUMMARY | 2025-02-26 23:14 | XMS_ITS | Encounter Summary ---
Author Organization [facility] Address [address] [place] [address] Care Team Providers Care Metal Bumper Name Role Phone Carlos Joyner MD Unavailable + [phone] Jadon Murray MD Unavailable +[phone] Maru Villagomez RN Unavailable Unavailable Ang Slade MD Unavailable +[phone] Carlos Joyner MD Unavailable +[phone] Ang Slade MD Unavailable +[phone] Lakshmi Wilhelm-C Unavailable +[phone] Heladio Willoughby MD Primary Care Provider +[phone] Heladio Willoughby MD Unavailable Alissa Perez PA-C Unavailable [phone] Lakshmi Wilhelm-C Unavailable +[phone] Aidee Valero PA-C Unavailable +[phone] Carlos Joyner MD Unavailable +[phone] Jadon Floyd MD Unavailable +[phone] Cayden Bejarano MD Unavailable Encounter Details Date Type Department Care Team (Late st Contact Info) Description 10/01/2024 [facility] [place] [address] [facility] [address]th [place] [address] Hattie Wing RN Social History Tobacco Use Types Packs/Day [...] than three times a week 07/16/2024 Attends Alevism Services Not on file 07/16 Active Member of Clubs or Organizations Not on f ile 07/16/2024 Attends Club or Organization Meetings Not on antelmo e 07/16/2024 Marital Status Not on file 07/16/2024 PHQ-2 Answer Date Recorded PHQ-2 Score 0 09/13/2024 [facility] - [...] Medical [facility] Physical Medicine and Rehabilitation Clinic [address]rd [place] [address] Jadon Floyd MD [address] [place] [address] 03/23/2025 12:[address] [facility] Imaging [address] [facility] [address] [place] [address] [place] [address] [address] [place] [address] 03/23/2025 1:30 PM CDT Hospital Encounter [facility] Imaging [address] [place] [address] Cayden Bejarano [place] [address] [place] [address] 03/25/2025 10:20 AM CDT Virtual Visit [facility] [place] [address] [place], [place] [address] [place] [address] [place] [address] [address] [place] [address] 04/04/2025 12:00 PM SENIOR GEOLOGIST Office Visit [facility] [place] [address] [place] [address] Sugey Mccoy, CHIROPRACTIC PRACTICE MANAGER [facility] [address] [place] [address] [address] [place] [address] 05/30/2025 10:20 AM SENIOR GEOLOGIST Appointment [facility] Imaging [address] [facility] [address] [place] [address] Carlos Joyner MD [address] [place] [address] 734875 05/31/2025 2:00 PM SENIOR GEOLOGIST Virtual Visit [facility] [place] 909 [facility] 4th [place] [address] Carlos Joyner MD [address] [place] [address] 522595 07/25/2025 11:00 AM SENIOR GEOLOGIST Office Visit [facility] [address] [place] [address] [place] [address] [place], [place] [phone] documented as of this encounter Visit Diagnoses Not on filedocumented in this encounter Care Teams Metal Bumper Relationship Specialty [place] [address] [place] [address] PCP - General 03/05/23 Carlos Joyner MD [address] [place] [address] Urology 12/09/19 Jadon Murray MD [facility] 2530 [facility] 550 [place] [address] Referring Physician Pediatric Surgery 12/09/19 Maru Villagomez, RN Registered Nurse 12/10/19 Ang Slade MD 420 [facility] 394 [place], [place] 457475 MD Urology 04/24/20 Carlos Joyner MD [address] [place] [address] [phone] Assigned Surgical Provider 12/24/20 Ang Slade MD 420 [facility] 394 [place], [place] 637525 MD Urology 12/18/22 Lakshmi Wilhelm PA-C [address] [place] [address] 462265 Physician Protective Signal Operator Urology 02/03/23 [place] [address] [place] [address] Assigned PCP 02/06/23 Alissa Perez PA-C [address] [place] [address] 796845 Physician Protective Signal Operator Surgery 09/04/23 Lakshmi Wilhelm PA-C [address] [place] [address] 012265 Physician Protective Signal Operator Urology 09/16/23 Aidee Valero PA-C [address] [place] [address] 0[address] Assigned Musculoskeletal Provider 04/17/24 02/14/25 Carlos Joyner MD [address] [place] [address] Urology 01/26/25 Jadon Floyd MD [address] [place] [address]34 Physician Physical Medicine and Rehabilitation 01/31/25 [place] [address] [place] [address] Assigned Musculoskeletal Provider 02/15/25 Tanisha Marlow 4120 [facility] [address] 03/30/24 documented as of this encounter
--- OUTSIDE RECORDS SUMMARY | 2025-02-26 23:14 | XMS_ITS | Encounter Summary ---
Author Organization [facility] Address [address] [place] [address] 19807 Care Team Providers Care Software Asset Manager Name Role Phone Carlos Joyner MD Unavailable + [phone] Jadon Murray MD Unavailable +[phone] Maru Villagomez RN Unavailable Unavailable Ang Slade MD Unavailable +[phone] Carlos Joyner MD Unavailable +[phone] Ang Slade MD Unavailable +[phone] Lakshmi Wilhelm-C Unavailable +[phone] Heladio Willoughby MD Primary Care Provider +[phone] Heladio Willoughby MD Unavailable Alissa Perez PA-C Unavailable [phone] Lakshmi Wilhelm-C Unavailable +[phone] Aidee Valero PA-C Unavailable +[phone] Carlos Joyner MD Unavailable +[phone] Jadon Floyd MD Unavailable +[phone] Cayden Bejarano MD Unavailable Encounter Details Date Type Department Care Team (Late st Contact Info) Description 09/29/2024 [facility] [place] 024309 [facility] 4th [place] [address] Hattie Wing RN Social History [...] Description 03/03/2025 9:00 AM CDT Office Visit [facility] Physical Medicine and Rehabilitation Clinic [address] 3rd [place] [address] aJdon Floyd MD [address] [place] [address] 03/23/2025 12:45 PM CDT Appointment [facility] [address] [facility] [address] [place] [address] [place] [address] [address] [place] [address] 03/23/2025 1:30 PM CDT Hospital Encounter [facility] [address] [place] [address] Cayden Bejarano [place] [address] [place] [address] 03/25/2025 10:20 AM CDT Virtual Visit [facility] Medicine [facility] [place] [address] [place], [place] [address] [place] [address] [place] [address] [address] [place] [address] 04/04/2025 12:00 PM MACHINE LAY OUT WORKER Office Visit [facility] [place] [address] [place] [address] Sugey Mccoy, COMPUTATIONAL THEORY SCIENTIST [facility] [address] [place] [address] [address] [place] [address] 05/30/2025 10:20 AM MACHINE LAY OUT WORKER Appointment [facility] [address] [facility] [address] [place] [address] Carlos Joyner MD [address] [place] [address] 932625 05/31/2025 2:00 PM MACHINE LAY OUT WORKER Virtual Visit [facility]rology [facility] [place] 909 [facility] 4th [place] [address] Carlos Joyner MD [address] [place] [address] 199905 07/25/2025 11:00 AM MACHINE LAY OUT WORKER Office Visit [facility] [address] [place] [address] [place] [address] [place], [place] [phone] documented as of this encounter Visit Diagnoses Not on filedocumented in this encounter Care Teams Software Asset Manager Relationship Specialty Start [place] [address] [place] [address] PCP - General 03/05/23 Carlos Joyner MD [address] [place] [address] 25527 Urology 12/09/19 Jadon Murray MD [facility] 2530 [facility] 550 [place] [address] Referring Physician Pediatric Surgery 12/09/19 Maru Villagomez, RN Registered Nurse 12/10/19 Ang Slade MD 420 [facility] 394 [place], [place] 653985 MD Urology 04/24/20 Carlos Joyner MD [address] [place] [address] [phone] Assigned Surgical Provider 12/24/20 Ang Slade MD 420 [facility] 394 [place], [place] 347225 MD Urology 12/18/22 Lakshmi Wilhelm PA-C [address] [place] [address] 726205 Physician Content Producer Urology 02/03/23 [place] [address] [place] [address] Assigned PCP 02/06/23 Alissa Perez PA-C [address] [place] [address] 140715 Physician Content Producer Surgery 09/04/23 Lakshmi Wilhelm PA-C [address] [place] [address] 391355 Physician Content Producer Urology 09/16/23 Aidee Valero PA-C [address] [place] [address] 48[address] Assigned Musculoskeletal Provider 04/17/24 02/14/25 Carlos Joyner MD [address] [place] [address] Urology 01/26/25 Jadon Floyd MD [address] [place] [address] 77013 Physician Physical Medicine and Rehabilitation 01/31/25 [place] [address] [place] [address] Assigned Musculoskeletal Provider 02/15/25 Tanisha Marlow 4120 [facility] [address] 03/30/24 documented as of this encounter
--- OUTSIDE RECORDS SUMMARY | 2025-02-26 23:14 | XMS_ITS | Encounter Summary ---
Author Organization [facility] Address [address] [place] [address] Care Team Providers Care Felt Finisher Name Role Phone Carlos Joyner MD Unavailable + [phone] Jadon Murray MD Unavailable +[phone] Maru Villagomez RN Unavailable Unavailable Ang Slade MD Unavailable +[phone] Carlos Joyner MD Unavailable + [phone] Ang Slade MD Unavailable +[phone] Lakshmi Wilhelm-C Unavailable +[phone] Heladio Willoughby MD Primary Care Provider [phone] Heladio Willoughby MD Unavailable Alissa Perez PA-C Unavailable [phone] Lakshmi Wilhelm PA-C Unavailable +[phone] Aidee Valero PA-C Unavailable +[phone] Carlos Joyner MD Unavailable + [phone] Jadon Floyd MD Unavailable +[phone] Cayden Bejarano MD Unavailable Encounter Details Date Type Department Care Team (Late st Contact Info) Description 09/23/[address] [address] [place] [address] [place] [address] Social History Tobacco Use Types Packs/Day Years [...] Answer Date Recorded PHQ-2 Score 0 09/13/2024 [facility] ional [facility] - [...] Answer Date Recorded Do you have housing? (Jeoy g is defined as stable permanent housing [...] Telephone Encounter - Heladio Willoughby MD - 09/24/2024 2:59 PM CDT Signed, routing back. Heladio Elder. MD [facility] * Telephone Encounter - Kasia Kang - 09/24/2024 2:54 PM CDT Referral is still pending. Routing to provider to sign off and route back to TC's to fax. Kasia Kang Lead Wireless Manager [facility] [place] documented in this encounter Plan of Treatment Upcoming Encounters Date Type Department Care Team (Late st Contact Info) Description 03/03/2025 9:00 AM CDT Office Visit [facility] [address] 3rd [place] [address] Jadon Floyd MD [address] [place] [address] 617385 03/23/2025 12:45 PM CDT Appointment [facility] [address] [facility] [address] [place] [address] [place] [address] [place] [address] 03/23/2025 1:30 PM CDT Hospital Encounter [facility] [address] [facility] [address] [place] [address] [place] [address] [place] [address] 03/25/2025 10:20 AM CDT Virtual [facility] [address] [place] [address] [address] [place] [address] [place] [address] [place] [address] 04/04/2025 12:00 PM FIRE APPARATUS ENGINEER Office Visit [facility] [address] [address] Sugey Mccoy, PERENNIAL HOUSE MANAGER [address] [phone] 05/30/2025 10:20 AM FIRE APPARATUS ENGINEER Appointment [facility] [address] [facility] [address] [place] [address] Carlos Joyner MD [address] [place] [address] 05/31/2025 2:00 PM FIRE APPARATUS ENGINEER Virtual Visit [facility] Urology [address] 4th [place] [address] Carlos Joyner MD [address] [place] [address] 07/25/2025 11:00 AM FIRE APPARATUS ENGINEER Office Visit [facility] [address] [place] [address] [place] [address] [address] [place] [phone] documented as of this encounter Visit Diagnoses Not on filedocumented in this encounter Care Teams Felt Finisher Relationship Specialty Start [place] [address] [address] [place] [phone] PCP - General 03/05/23 Carlos Joyner MD [address] [place] [address] 976265 Urology 12/09/19 Jadon Murray MD [facility] [address] [address] Referring Physician Pediatric Surgery 12/09/19 Maru Villagomez, RN Registered Nurse 12/10/19 Ang Slade MD [address] [place] [address] 741645 Urology 04/24/20 Carlos Joyner MD [address] [place] [address] Assigned Surgical Provider 12/24/20 Ang Slade MD [address] [place] [address] 850565 Urology 12/18/22 Lakshmi Wilhelm PA-C [address] [place] [address] 227735 Physician Saddle And Harness Maker Urology 02/03/23 [place] [address] [place] [address] Assigned PCP 02/06/23 Alissa Perez PA-C [address] [place] [address] 996315 Physician Saddle And Harness Maker Surgery 09/04/23 Lakshmi Wilhelm PA-C [address] [place] [address] 944755 Physician Saddle And Harness Maker Urology 09/16/23 Aidee Valero PA-C [address] [place] [address] 120295 Assigned Musculoskeletal Provider 04/17/24 02/14/25 Carlos Joyner MD [address] [place] [address] 840545 Urology 01/26/25 Jadon Floyd MD [address] [place] [address] 816135 Physician Physical Medicine and Rehabilitation 01/31/25 [place] [address] [place] [address] Assigned Musculoskeletal Provider 02/15/25 Tanisha aMrlow 4120 [facility] [address] 03/30/24 documented as of this encounter
--- OUTSIDE RECORDS SUMMARY | 2025-02-26 23:14 | XMS_ITS | Encounter Summary ---
Author Organization [facility] Address [address] [place] [address] Care Team Providers Care Getter Welder Name Role Phone Carlos Joyner MD Unavailable +[phone] Jadon Murray MD Unavailable +[phone] Maru Villagomez RN Unavailable Unavailable Ang Slade MD Unavailable +[phone] Cralos Joyner MD Unavailable +[phone] Ang Slade MD Unavailable +[phone] Lakshmi Wilhelm-C Unavailable +[phone] Heladio Willoughby MD Primary Care Provider [phone] Heladio Willoughby MD Unavailable Alissa Perez PA-C Unavailable [phone] Lakshmi Wilhelm-C Unavailable +[phone] Aidee Valero PA-C Unavailable +[phone] Encounter Details Date Type Department Care Team (Late st Contact Info) Description 11/22/2024 Results Follow-Up [facility] Clinic [address] [place] [address] Rosita Velasco, RN Dx: Kidney stone (Primary Dx) Social History Tobacco [...] Medical Center Physical Medicine and Rehabilitation Clinic [address] [address] Jadon Floyd MD [address] [place] [address] 03/23/2025 12:45 PM CDT Appointment [facility] [address] [facility] [address] [place] [address] [place] [address] [place] [address] 03/23/2025 1:30 PM CDT Hospital Encounter [facility] Imaging [address] [place] [address] [place] [address] [facility] [address] [address] [place] [address] 03/25/2025 10:20 AM CDT Virtual Visit [facility] Medicine [facility] [place] [address] [place], [place] [address] [place] [address] [place] [address] [place] [address] 04/04/2025 12:00 PM CHOCOLATE TEMPERER Office Visit [facility] [place] [address] [place] [address] Sugey Mccoy, MATERIAL DAMAGE ADJUSTER [facility] [address] [place], [place] 9[address] 05/30/2025 10:20 AM CHOCOLATE TEMPERER Appointment [facility] [address] [facility] [address] [place] [address] Carlos Joyner MD [address] [place] [address] 981925 05/31/2025 2:00 PM CHOCOLATE TEMPERER Virtual Visit [facility] [place] 909 [facility] 4th [place] [address] Carlos Joyner MD [address] [place] [address] 27721455 07/25/2025 11:00 AM CHOCOLATE TEMPERER Office Visit [facility] [address] [place] [address] [place] [address] [place] [address] documented as of this encounter Visit Diagnoses Diagnosis Kidney stone- Primary Calculus of kidney documented in this encounter Care Teams Getter Welder Relationship Specialty Start [place] [address] [place] [address] PCP - General 03/05/23 Carols Joyner MD [address] [place] [address] Urology 12/09/19 Jadon Murray MD [facility] 2530 [facility] 550 [place] [address] Referring Physician Pediatric Surgery 12/09/19 Maru Villagomez, RN Registered Nurse 12/10/19 Ang Slade MD 420 [facility] 394 [place], [place] 037335 Urology 04/24/20 Carlos Joyner MD [address] [place] [address] 120585 Assigned Surgical Provider 12/24/20 Ang Slade MD 420 [facility] 394 [place], [place] 424655 Urology 12/18/22 Lakshmi Wilhelm PA-C [address] [place] [address] 253705 Physician C.O.D. Biller Urology 02/03/23 [place] [address] [place] [address] Assigned PCP 02/06/23 Alissa Perez PA-C [address] [place] [address] 891705 Physician C.O.D. Biller Surgery 09/04/23 Lakshmi Wilhelm PA-C [address] [place] [address] 76785 Physician C.O.D. Biller Urology 09/16/23 Aidee Valero PA-C 909 [place] [address] Assigned Musculoskeletal Provider 04/17/24 02/14/25 Tanisha Marlow 4120 [facility] [address] 03/30/24 documented as of this encounter
--- OUTSIDE RECORDS SUMMARY | 2025-02-26 23:14 | XMS_ITS | Encounter Summary ---
Author Organization [place] Address [address] [place] [address] Care Team Providers Care Mat Cleaning Machine Operator Name Role Phone Carlos Joyner MD Unavailable +[phone] Jadon Murray MD Unavailable [phone] Maru Villagomez RN Unavailable Unavailable Ang Slade MD Unavailable [phone] Carlos Joyner MD Unavailable +[phone] Ang Slade MD Unavailable [phone] Lakshmi Wilhelm-C Unavailable [phone] Heladio Willoughby MD Primary Care Provider [phone] Heladio Willoughby MD Unavailable Alissa Perez PA-C Unavailable [phone] KyLakshmi morales-C Unavailable +[phone] Aidee Valero PA-C Unavailable [phone] Carlos Joyner MD Unavailable +[phone] Jadon Floyd MD Unavailable [phone] Reason for Visit * Reason Onset Date Comments Forms 02/03/2025 OT Outpatient/Th oratic Spina bifida- [facility] Encounter Details Date Type Department Care Team (Late st Contact Info) Description 02/03/2025 [facility] [address] [place] [address] [place] [address] [address] [place] [id number] Forms (OT Outpatient/Thoratic Spina bifida- [facility]/) Social History Tobacco Use Types Packs/Day Years [...] Answer Date Recorded PHQ-2 Score 0 09/13/2024 [facility] ional [facility] [...] Miscellaneous Notes * Telephone Encounter - Sarika Dunaway - 02/03/2025 9:28 AM CDT Faxed to [facility] and abstracting. Placed in tc basket at [facility]. Sarika Prescott Quality Control Chemist- [place] [address] Primary Care- [place] [facility] * Telephone Encounter - Heladio Willoughby MD - 02/03/2025 8:26 AM CDT Signed. Placed in outgoing box. MD [facility] * Telephone Encounter - Sarika Dunaway - 02/03/2025 7:47 AM CDT OT orders in provider basket for signature. Sarika Prescott, Quality Control Chemist- [facility] 2 Primary Care- [place] [facility] * Telephone Encounter - Zoe Johnson - 02/03/2025 7:00 AM CDT Forms/Letter Request Type of form/letter: OTHER: [facility] Thoratic Spina bifida OT Outpatient Do we have the form/letter: Yes: Who is the form from? Where did/will the form come from? form was faxed in When is form/letter needed by: How would you like the form/letter returned: Zoe Johnson Patient Principal Examiner documented in this encounter Plan of Treatment Upcoming Encounters Date Type Department Care Team (Late st Contact Info) Description 03/03/2025 9:00 AM CDT Office Visit [facility] [address] [phone] Jadon Floyd MD [address] [place] [address] 03/23/2025 12:45 PM CDT Appointment [facility] [address] [facility] [address] [place] [phone] [place] [address] [place] [address] 03/23/2025 1:30 PM CDT Hospital Encounter [facility] [address] [place] [address] [place] [address] [facility] [address] [place] [address] 03/25/2025 10:20 AM CDT Virtual Visit [facility] [place] [address] [facility] [address] [place] [address] [place] [address] [facility] 300 [place] [address] 04/04/2025 12:00 PM METAL SANDER Office Visit [facility] [place] [address] [place] [address] Sugey Mccoy, TE[facility]ERS [facility] [address] [place] [address] [address] [place] [address] 05/30/2025 10:20 AM METAL SANDER Appointment [facility] Imaging [address] [facility] [address] [place] [address] Carlos Joyner MD [address] [place] [address] 422645 05/31/2025 2:00 PM METAL SANDER Virtual Visit [facility] Urology [facility] [address] 4th [place] [address] Carlos Joyner MD [address] [place] [address] 327805 07/25/2025 11:00 AM METAL SANDER Office Visit [address] [address] [place] [address] [place] [address] documented as of this encounter Visit Diagnoses Not on filedocumented in this encounter Care Teams Mat Cleaning Machine Operator Relationship Specialty Start [place] [address] [place] [address] PCP - General 03/05/23 Carlos Joyner MD [address] [place] [address] Urology 12/09/19 Jadon Murray MD [facility] 2530 [facility] [address] [address] Referring Physician Pediatric Surgery 12/09/19 Maru Villagomez, RN Registered Nurse 12/10/19 Ang Slade MD [address] [place] [address] 258785 Urology 04/24/20 Carlos Joynre MD [address] [place] [address] 015975 Assigned Surgical Provider 12/24/20 Ang Slade MD [address] [place] [address] 370125 Urology 12/18/22 Lakshmi Wilhelm PA-C [address] [place] [address] 397015 Physician Community Health Director Urology 02/03/23 [place] [address] [place] [address] Assigned PCP 02/06/23 Alissa Perez PA-C [address] [place] [address] Physician Community Health Director Surgery 09/04/23 Lakshmi Wilhelm PA-C [address] [place] [address] Physician Community Health Director Urology 09/16/23 Aidee Valero PA-C [address] [place] [address] 13344 Assigned Musculoskeletal Provider 04/17/24 02/14/25 Carlos Joyner MD [address] [place] [address] Urology 01/26/25 Jadon Floyd MD [address] [place] [address] Physician Physical Medicine and Rehabilitation 01/31/25 Tanisha Marlow [facility]0 [facility] [address] 03/30/24 documented as of this encounter
--- OUTSIDE RECORDS SUMMARY | 2025-02-26 23:14 | XMS_ITS | Encounter Summary ---
Author Organization [place] Address [address] [place] [address] Care Team Providers Care Computational Sciences Professor Name Role Phone Carlos Joyner MD Unavailable [phone] Jadon Murray MD Unavailable [phone] Maru Villagomez RN Unavailable Unavailable Ang Slade MD Unavailable [phone] Carlos Joyner MD Unavailable +[phone] Ang Slade MD Unavailable [phone] Lakshmi Wilhelm-C Unavailable [phone] Heladio Willoughby MD Primary Care Provider [phone] Heladio Willoughby MD Unavailable Alissa Perez PA-C Unavailable [phone] OrLakshmi morales PA-C Unavailable [phone] Aidee Valero PA-C Unavailable [phone] Carlos Joyner MD Unavailable +[phone] Jadon Floyd MD Unavailable [phone] Reason for Visit * Reason Onset Date Comments Prior Auth - Medication 02/03/2025 Acetohyd roxamic Acid (LITHOSTAT) 250 MG TABS - [place] APPROVED Encounter Details Date Type Department Care Team (Late st Contact Info) Description 02/03/2025 [facility] [place] [address] [address] Carlos Joyner MD 909 [place] [address] Prior Auth - Medication (Acetohydroxamic Acid (LITHOSTAT) 250 MG TABS - [place] APPROVED) Social History Tobacco Use Types [...] than three times a week 07/16/2024 Attends [employer] Not on file 07/16 Active Member [...] building, in an overnight usp, or couch-surfing.) No 07/16/2024 Are you worried [...] encounter Miscellaneous Notes * Telephone Encounter - Cirilo Ferreira - 02/07/2025 10:13 AM CDT Images from the original note were not included. Retail Pharmacy Prior Authorization Team Prior Authorization Approval Medication: LITHOSTAT 250 MG PO TABS Authorization Effective Date: 02/03/2025 Authorization Expiration Date: 05/25/2025 Approved Dose/Quantity: Reference #: Insurance Company: [employer] Part D - Expected CoPay: $ CoPay Card Available: No Financial Assistance Needed: Which Pharmacy is filling the prescription: [id number] [place] [address] Pharmacy Notified: YES Patient Notified: Instructed pharmacy to notify patient when script is ready to supervisor opening and picking/ship. * Telephone Encounter - Cirilo Ferreira - 02/03/2025 1:32 PM CDT Images from the original note were not included. Please refrain from closing out PA encounters until it has been addressed fully by the [facility] PA Team. Status will be updated to Approved/Denied/Dismissed/PA Not Needed. Closing/signing the encounters results in missed submission to the patient's insurance as that encounter disappears from our PA Pool and does not get sent. Thank you! Retail Pharmacy Prior Authorization Team PA Initiation Medication: LITHOSTAT 250 MG PO TABS Insurance Company: [employer] Part D - Pharmacy Filling the Rx: [facility] [id number] [place] [address] Filling Pharmacy Filling Pharmacy Start Date: 02/03/2025 Outgoing fax to insurance: Received question set for PA already in process. Answered question set and faxed back to [employer] via Right fax. I attached chart notes as well. documented in this encounter Plan of Treatment Upcoming Encounters Date Type Department Care Team (Late st Contact Info) Description 03/03/2025 9:00 AM CDT Office Visit [facility] Rehabilitation [facility] [address] [phone] Jadon Floyd MD [address] [place] [address] 766935 03/23/2025 12:45 PM CDT Appointment [facility] Imaging [address] [place] [phone] [place] [address] [place] [address] 03/23/2025 1:30 PM CDT Hospital Encounter [facility] Imaging [address] [facility] [address] [place] [address] [place] [address] [place] [address] 03/25/2025 10:20 AM CDT Virtual Visit [facility] [place] [address] [place] [address] [place] [address] [place] [address] 04/04/2025 12:00 PM HARVEST CREW SUPERVISOR Office Visit [facility] Sleep [facility] [address] [place] [phone] Sugey Mccoy, AIR VALUE TESTER [address] 205[address] 05/30/2025 10:20 AM HARVEST CREW SUPERVISOR Appointment [facility] Imaging [address] [facility] [address] [place] [address] Carlos Joyner MD [address] [place] [address] 623595 05/31/2025 2:00 PM HARVEST CREW SUPERVISOR Virtual Visit [facility] Urology [address] 4th [place] [phone] Carlos Joyner MD [address] [place] [address] 347725 07/25/2025 11:00 AM HARVEST CREW SUPERVISOR Office Visit [address] [address] [place] [address] [place] [address] documented as of this encounter Visit Diagnoses Not on filedocumented in this encounter Care Teams Computational Sciences Professor Relationship Specialty Start [place] [address] [address] [place] [phone] PCP - General 03/05/23 Carlos Joyner MD [address] [place] [address] [phone] Urology 12/09/19 Jadon Murray MD [facility] 2530 [facility] 550 [place], [place] [phone] Referring Physician Pediatric Surgery 12/09/19 Maru Villagomez, RN Registered Nurse 12/10/19 Ang Slade MD [address] [place] [address] 661375 Urology 04/24/20 Carlos Joyner MD [address] [place] [address] 616395 Assigned Surgical Provider 12/24/20 Ang Slade MD [address] [place] [address] 16238 Urology 12/18/22 Lakshmi Wil[place] PA-C [address] [place] [address] Physician Merchandise Carrier Urology 02/03/23 [place] [address] [place] [address] Assigned PCP 02/06/23 Alissa Perez PA-C [address] [place] [address]25[address] Physician Merchandise Carrier Surgery 09/04/23 Lakshmi Wilhelm PA-C [address] [place] [address] 70971 Physician Merchandise Carrier Urology 09/16/23 Aidee Valero PA-C [address] [place] [address] 20984 Assigned Musculoskeletal Provider 04/17/24 02/14/25 Carlos Joyner MD [address] [place] [address] Urology 01/26/25 Jadon Floyd MD [address] [place] [address]48 Physician Physical Medicine and Rehabilitation 01/31/25 Tanisha Marlow 4120 [facility] [address] 03/30/24 documented as of this encounter
--- OUTSIDE RECORDS SUMMARY | 2025-02-26 23:14 | XMS_ITS | Encounter Summary ---
Author Organization [place] Address [address] [place] [address] Care Team Providers Care Shop Mechanic Name Role Phone Carlos Joyner MD Unavailable [phone] Jadon Murray MD Unavailable [phone] Maru Villagomez RN Unavailable Unavailable Ang Slade MD Unavailable [phone] Carlos Joyner MD Unavailable +[phone] Ang Slade MD Unavailable [phone] Lakshmi Wilhelm-C Unavailable [phone] Heladio Willoughby MD Primary Care Provider [phone] Heladio Willoughby MD Unavailable Alissa Perez PA-C Unavailable [phone] Lakshmi Wilhelm-C Unavailable [phone] Aidee Valero PA-C Unavailable [phone] Carlos Joyner MD Unavailable +[phone] Jadon Floyd MD Unavailable [phone] Cayden Bejarano MD Unavailable Encounter Details Date Type Department Care Team (Late st Contact Info) Description 02/03/2025 [facility] Urology [place] [phone] [facility] 4th [place] [address] Carlos Joyner MD [address] [place] [address] Social History Tobacco Use Types Packs/Day Years [...] Answer Date Recorded PHQ-2 Score 0 09/13/2024 [facility] - Occupational [...] encounter Miscellaneous Notes * Telephone Encounter - Pratik Oneal - 02/03/2025 10:27 AM CDT [facility] Call Center Phone Message May a detailed message be left on voicemail: no Reason for Call: Other: [employer] called and stated they are sending a fax over with some information for a medication. Sounds like it needs to have a response by 02/05. Please call back if there are any questions. Action Taken: Message routed to: [facility] Urology Travel Screening: Not Applicable Date of Service: documented in this encounter Plan of Treatment Upcoming Encounters Date Type Department Care Team (Late st Contact Info) Description 03/03/2025 9:00 AM CDT Office Visit [facility] Physical Medicine and Rehabilitation Clinic [address] [place] [address] Jadon Floyd MD [address] [place] [address] 03/23/2025 12:45 PM CDT Appointment [facility] Imaging [address] [facility] [address] [place] [phone] [place] [address] [place] [address] 03/23/2025 1:30 PM CDT Hospital Encounter [facility] Imaging [address] [facility] [address] [place] [address] [place] [address] [place] [address] 03/25/2025 10:20 AM CDT Virtual Visit [facility] Sports Medicine [facility] [address] [place] [address] [address] [place] [address] [place] [address] [place] [address] 04/04/2025 12:00 PM COLLISION REPAIR TECHNICIAN Office Visit [facility] Sleep [address] [phone] Sugey Mccoy, COFFEE SHOP AIDE [address] [address] 05/30/2025 10:20 AM COLLISION REPAIR TECHNICIAN Appointment [facility] Imaging [address] [facility] [address] [place] [address] Carlos Joyner MD [address] [place] [address] 168215 05/31/2025 2:00 PM COLLISION REPAIR TECHNICIAN Virtual Visit [facility] Urology Clinic [address] [phone] Carlos Joyner MD 909 [place], [place] 765[address] 07/25/2025 11:00 AM COLLISION REPAIR TECHNICIAN Office Visit [facility] [address] [place] [address] [place] [address] [address] [place], [place] [phone] documented as of this encounter Visit Diagnoses Not on filedocumented in this encounter Care Teams Shop Mechanic Relationship Specialty [place] [address] [address] [place], [place] [phone] PCP - General 03/05/23 Carlos Joyner MD [address] [place] [address] Urology 12/09/19 Jadon Murray MD [facility] [address] [address] Referring Physician Pediatric Surgery 12/09/19 Maru Villagomez RN Registered Nurse 12/10/19 Ang Slade MD 420 [facility] 394 [place] [address] Urology 04/24/20 Carlos Joyner MD [address] [place] [address] 57089 Assigned Surgical Provider 12/24/20 Ang Slade MD [address] [place] [address] Urology 12/18/22 Lakshmi Wilhelm PA-C [address] [place] [address] 26455 Physician Coin Machine Collector Urology 02/03/23 [place] [address] [place] [address] Assigned PCP 02/06/23 Alissa Perez PA-C [address] [place] [address]677 Physician Coin Machine Collector Surgery 09/04/23 Lakshmi Wilhelm PA-C [address] [place] [address]391 Physician Coin Machine Collector Urology 09/16/23 Aidee Valero PA-C [address] [place] [address] 6[address] Assigned Musculoskeletal Provider 04/17/24 02/14/25 Carlos Joyner MD [address] [place] [address] Urology 01/26/25 Jadon Floyd MD [address] [place] [address] 046715 Physician Physical Medicine and Rehabilitation 01/31/25 [place] [address] [place] [address] Assigned Musculoskeletal Provider 02/15/25 Tanisha Marlow 4120 [facility] [address] 03/30/24 documented as of this encounter
--- OUTSIDE RECORDS SUMMARY | 2025-02-26 23:15 | XMS_ITS | Encounter Summary ---
Author Organization [place] Address [address] [place] [address] Care Team Providers Care Assistant Casino Shift Manager Name Role Phone Carlos Joyner MD Unavailable [phone] Jadon Murray MD Unavailable [phone] Maru Villagomez RN Unavailable Unavailable Ang Slade MD Unavailable [phone] Carlos Joyner MD Unavailable +[phone] Ang Slade MD Unavailable [phone] Lakshmi WilhelmC Unavailable [phone] Heladio Willoughby MD Primary Care Provider [phone] Heladio Willoughby MD Unavailable Alissa Perez-Juan A Unavailable [phone] Lakshmi Wilhelm PA-C Unavailable [phone] Carlos Joyner MD Unavailable +[phone] Jadon Floyd MD Unavailable [phone] Cayden Bejarano MD Unavailable Encounter Details Date Type Department Care Team (Latest Contact Info) Description 02/17/2025 Travel Social History Tobacco Use Types Packs/Day [...] Answer Date Recorded PHQ-2 Score 0 09/13/2024 [facility]ational Stress Questionnaire Answer [...] Description 03/03/2025 9:00 AM CDT Office Visit [facility] Physical Medicine and Rehabilitation Clinic [address] [phone] Jadon Floyd MD [address] [place] [address] 03/23/2025 12:45 PM CDT Appointment [facility] Imaging [address] [facility] [address] [place] [address] [place] [address] [place] [address] 03/23/2025 1:30 PM CDT Hospital Encounter [facility] Imaging [address] [place] [address] [place] [address] Cayden [place]jar[place] [address] [place] [address] 03/25/2025 10:20 AM CDT Virtual Visit [facility] Sports Medicine Clinic [place] [address] [place] [address] [place] [address] [place] [address] 04/04/2025 12:00 PM SOFTWARE ENGINEER BACKEND Office Visit [facility] Sleep Center [place] [address] [place] [phone] Darius [place] Elder, FINAL TESTER [facility] [address] [place], [place] [address] 05/30/2025 10:20 AM SOFTWARE ENGINEER BACKEND Appointment [facility] Imaging [address] [place] [address] [place] [phone] Carlos Joyner MD [address] [place] [address] 496185 05/31/2025 2:00 PM SOFTWARE ENGINEER BACKEND Virtual Visit [facility] Urology Clinic [place] 909 [facility] 4th [place] [phone] Carlos Joyner MD [address] [place] [address] 07/25/2025 11:00 AM SOFTWARE ENGINEER BACKEND Office Visit [facility] [address] [place] [phone] [place] [address] [place] [address] documented as of this encounter Visit Diagnoses Not on filedocumented in this encounter Care Teams Assistant Casino Shift Manager Relationship Specialty Start [place] [address] [place] [address] PCP - General 03/05/23 Carlos Joyner MD [address] [place] [address] Urology 12/09/19 Jadon Murray MD [facility] 2530 [facility] 550 [place] [address] Referring Physician Pediatric Surgery 12/09/19 Maru Villagomez, RN Registered Nurse 12/10/19 Ang Slade MD [address] [place] [address] 394 [place], [place] 148735 Urology 04/24/20 Carlos Joyner MD [address] [place] [address] 318595 Assigned Surgical Provider 12/24/20 Ang Slade MD [address] [place] [address] 482765 Urology 12/18/22 Lakshmi Wilhelm PA-C [address] [place] [address] 776835 Physician Certified Public Accountant Urology 02/03/23 [place] [address] [place] [address] Assigned PCP 02/06/23 Alissa Perez PA-C [address] [place] [address] 761625 Physician Certified Public Accountant Surgery 09/04/23 Lakshmi Wilhelm PA-C [address] [place] [address] 984445 Physician Certified Public Accountant Urology 09/16/23 Carlos Joyner MD 909 [place], [place] 504435 Urology 01/26/25 Jadon Floyd MD 9 [place], [place] 884825 Physician Physical Medicine and Rehabilitation 01/31/25 [place] [address] [place] [address] Assigned Musculoskeletal Provider 02/15/25 Tanisha Marlow 4120 [facility] [address] 03/30/24 documented as of this encounter
--- OUTSIDE RECORDS SUMMARY | 2025-02-26 23:15 | XMS_ITS | Encounter Summary ---
Author Organization [place] Address [address] [place] [address] Care Team Providers Care Supervisor Of Guidance And Testing Name Role Phone Carlos Joyner MD Unavailable + [phone] Jadon Murray MD Unavailable +[phone] Maru Villagomez RN Unavailable Unavailable Ang Slade MD Unavailable +[phone] Carlos Joyner MD Unavailable +[phone] Ang Slade MD Unavailable +[phone] Lakshmi Wilhelm-C Unavailable +[phone] Heladio [place] MD Primary Care Provider +[phone] Heladio [place] MD Unavailable Alissa Perez PA-C Unavailable [phone] Lakshmi Wilhelm-C Unavailable +[phone] Aidee Valero PA-C Unavailable +[phone] Carlos Joyner MD Unavailable +[phone] Jadon Floyd MD Unavailable +[phone] Cayden Bejarano MD Unavailable Encounter Details Date Type Department Care Team (Late st Contact Info) Description 02/08/2025 [facility] Sports Medicine [address] [place], [place] [address] [place] [address] [address] Social History Tobacco Use Types Packs/Day Years [...] Answer Date Recorded PHQ-2 Score 0 09/13/2024 [facility] [...] [facility] Physical Medicine [facility] Rehabilitation Clinic [address] [phone] Jadon Floyd MD [address] [place] [address] [id number] 03/23/2025 12:45 PM CDT Appointment [facility] Imaging [address] [place] [address] [place] [id number] [place] [address] [address] [place] [address] 03/23/2025 1:30 PM CDT Hospital Encounter [facility] [address] [place] [address]67[address] [place] [address] [place] [address] 03/25/2025 10:20 AM CDT Virtual Visit [facility] Sports Medicine [facility] [place] [address] [facility] [address] [place] [address] [place] [address] [place] [address] 04/04/2025 12:00 PM AUTO DISMANTLER Office Visit [facility] [place] [address] [facility] [place] [address] Sugey Mccoy APRN [facility] [address] [place] [address] [address] [place] [address] 05/30/2025 10:20 AM AUTO DISMANTLER Appointment [facility] [address] [facility] [address] [place] [address] Carlos Joyner MD [address] [place] [address] 806075 05/31/2025 2:00 PM AUTO DISMANTLER Virtual Visit [facility] Urology Clinic [address] 4th [place] [address] Carlos Joyner MD [address] [place] [address] 07/25/2025 11:00 AM AUTO DISMANTLER Office Visit [place] [facility] [id number] [place] [address] [place] [address] [place] [address] documented as of this encounter Visit Diagnoses Not on filedocumented in this encounter Care Teams Supervisor Of Guidance And Testing Relationship Specialty [place] [address] [place] [address] PCP - General 03/05/23 Carlos Joyner MD [address] [place] [address] 447005 Urology 12/09/19 Jadon Murray MD [facility] [address] [phone] Referring Physician Pediatric Surgery 12/09/19 Maru Villagomez, RN Registered Nurse 12/10/19 Ang Slade MD [address] [place] [address] 596975 Urology 04/24/20 Carlos Joyner MD [address] [place] [address] 913285 Assigned Surgical Provider 12/24/20 Ang Slade MD [address] [place] [address] 86651 Urology 12/18/22 Lakshmi Wilhelm PA-C [address] [place] [address] 623435 Physician Patient Scheduling Manager Urology 02/03/23 [place] [address] [place] [address] Assigned PCP 02/06/23 Alissa Perez PA-C [address] [place] [address] 82208 Physician Patient Scheduling Manager Surgery 09/04/23 Lakshmi Wilhelm PA-C [address] [place] [address] 59158 Physician Patient Scheduling Manager Urology 09/16/23 Aidee Valero PA-C [address] [place] [address] 28183 Assigned Musculoskeletal Provider 04/17/24 02/14/25 Carlos Joyner MD [address] [place] [address] 83126 Urology 01/26/25 Jadon Floyd MD [address] [place] [address] 37685 Physician Physical Medicine and Rehabilitation 01/31/25 [place] [address] [place] [address] Assigned Musculoskeletal Provider 02/15/25 Tanisha Marlow [address] [facility] [place] [address] 03/30/24 documented as of this encounter
--- OUTSIDE RECORDS SUMMARY | 2025-02-26 23:15 | XMS_ITS | Encounter Summary ---
Author Organization [place] Address [address] [place] [address] Care Team Providers Care Chief Of Internal Medicine Name Role Phone Carlos Joyner MD Unavailable +[phone] Jadon Murray MD Unavailable +[phone] Maru Villagomez RN Unavailable Unavailable Ang Slade MD Unavailable +[phone] Carlos Joyner MD Unavailable +[phone] Ang Slade MD Unavailable +[phone] Lakshmi Wilhelm-C Unavailable +[phone] Heladio [place] MD Primary Care Provider [phone] Heladio [place] MD Unavailable Alissa Perez PA-C Unavailable [phone] FlLakshmi morales-C Unavailable +[phone] Aidee Valero PA-C Unavailable [phone] Carlos Joyner MD Unavailable +[phone] Jadon Floyd MD Unavailable +[phone] Encounter Details Date Type Department Care Team (Latest Contact Info) Description 02/08/2025 Travel Social History Tobacco Use Types Packs/Day [...] than three times a week 07/16/2024 Attends [employer] Not on file 07/16 Active Member [...] Description 03/03/2025 9:00 AM CDT Office Visit [facility] Physical Medicine and Rehabilitation Clinic [address] [phone] Jadon Floyd MD [address] [place] [address] 03/23/2025 12:45 PM CDT Appointment [facility] [address] [facility] [address] [place] [address] [place] [address] [facility] [address] [place] [address] 03/23/2025 1:30 PM CDT Hospital Encounter [facility] [address] [address] [place] [address] [place] [address] [facility] [address] [place] [address] 03/25/2025 10:20 AM CDT Virtual Visit [facility] Sports Medicine Clinic [place] [address] [place], [place] [address] [place] [address] [place] [id number] [place] [address] [address] [place] [address] 04/04/2025 12:00 PM TUCKPOINTER Office Visit [facility] [place] [address] [place] [address] DariusElvirginia Elder, POLICE AND FIRE DISPATCHER [facility] [address] [place], [place] [address] 05/30/2025 10:20 AM TUCKPOINTER Appointment [facility] Imaging [address] [place] [address] Carlos Joyner MD [address] [place] [address] 874805 05/31/2025 2:00 PM TUCKPOINTER Virtual Visit [facility] Urology Clinic [place] [address] [facility] 4th [place] [address] Carlos Joyner MD [address] [place] [address] [id number] 07/25/2025 11:00 AM TUCKPOINTER Office Visit [facility] [address] [place] [address] [place] [address] [place] [address] documented as of this encounter Visit Diagnoses Not on filedocumented in this encounter Care Teams Chief Of Internal Medicine Relationship Specialty Start Date End [place] [id number] [place] [address] PCP - General 03/05/23 Carlos Joyner MD [address] [place] [address] [id number] Urology 12/09/19 Jadon Murray MD [facility] 2530 [facility] 550 [place] [address] Referring Physician Pediatric Surgery 12/09/19 Maru Villagomez, RN Registered Nurse 12/10/19 Ang Slade MD [address] [place] [address] 394 [place] [address] Urology 04/24/20 Carlos Joyner MD [address] [place] [address] [phone] Assigned Surgical Provider 12/24/20 Ang Slade MD [address] [place] [address] 394 [place] [address] Urology 12/18/22 Lakshmi Wilhelm PA-C [address] [place] [address] 860005 Physician Steel Plate Caulker Urology 02/03/23 [place] [address] [place] [address] Assigned PCP 02/06/23 Alissa Perez PA-C [address] [place] [address] 449255 Physician Steel Plate Caulker Surgery 09/04/23 Lakshmi Wilhelm PA-C [address] [place] [address] 289455 Physician Steel Plate Caulker Urology 09/16/23 Aidee Valero PA-C [address] [place] [address] 878075 Assigned Musculoskeletal Provider 04/17/24 02/14/25 Carlos Joyner MD [address] [place] [address] [id number] Urology 01/26/25 Jadon Floyd MD [address] [place] [address] 604255 Physician Physical Medicine and Rehabilitation 01/31/25 Tanisha Marlow 4120 [facility] [address] 03/30/24 documented as of this encounter
--- OUTSIDE RECORDS SUMMARY | 2025-02-26 23:15 | XMS_ITS | Encounter Summary ---
Author Organization [place] Address [address] [place] [address] Care Team Providers Care Fun House Operator Name Role Phone Carlos Joyner MD Unavailable +[phone] Jadon Murray MD Unavailable +[phone] Maru Villagomez RN Unavailable Unavailable Ang Slade MD Unavailable +[phone] Carlos Joyner MD Unavailable +[phone] Ang Slade MD Unavailable +[phone] Lakshmi Wilhelm-C Unavailable +[phone] Heladio [place] MD Primary Care Provider [phone] Heladio [place] MD Unavailable Alissa Perez PA-C Unavailable [phone] VaLakshmi morales-C Unavailable +[phone] Aidee Valero PA-C Unavailable [phone] Carlos Joyner MD Unavailable +[phone] Jadon Floyd MD Unavailable [phone] Encounter Details Date Type Department Care Team (Latest Contact Info) Description 02/04/2025 Travel Social History Tobacco Use Types Packs/Day [...] [facility] [address] [phone] Jadon Floyd MD [address] [place] [address] 03/23/2025 12:45 PM CDT Appointment [facility] [address] [facility] [address] [place] [address] [place] [address] [facility] [address] [place] [address] 03/23/2025 1:30 PM CDT Hospital Encounter [facility] [address] [place] [address] [place] [address] [facility] [address] [place] [address] 03/25/2025 10:20 AM CDT Virtual Visit [facility] [place] [address] [place], [place] [address] [place] [address] [place] [address] [place] [address] [address] [place] [address] 04/04/2025 12:00 PM RAILROAD INSPECTOR Office Visit [facility] [place] [address] [place] [address] DariusElvirginia Elder, SENIOR NUCLEAR MEDICINE TECHNOLOGIST [facility] [address] [place], [place] 9[address] 05/30/2025 10:20 AM RAILROAD INSPECTOR Appointment [facility] [address] [place] [address]836[address] Carlos Joyner MD [address] [place] [address] 619795 05/31/2025 2:00 PM RAILROAD INSPECTOR Virtual Visit [facility] [place] 9[address] [facility] 4th [place] [address] Carlos Joyner MD [address] [place] [address] [phone] 07/25/2025 11:00 AM RAILROAD INSPECTOR Office Visit [facility] [address] [place] [address] [place] [address] [place] [address] documented as of this encounter Visit Diagnoses Not on filedocumented in this encounter Care Teams Fun House Operator Relationship Specialty Start Date End [place] [address] [place] [address] PCP - General 03/05/23 Carlos Joyner MD [address] [place] [address] [phone] Urology 12/09/19 Jadon Murray MD [facility] 2530 [facility] 550 [place] [address] Referring Physician Pediatric Surgery 12/09/19 Maru Villagomez, RN Registered Nurse 12/10/19 Ang Slade MD [address] [place] [address] 394 [place] [address] Urology 04/24/20 Carlos Joyner MD [address] [place] [address] 231015 Assigned Surgical Provider 12/24/20 Ang Slade MD [address] [place] [address] 394 [place] [address] Urology 12/18/22 Lakshmi Wilhelm PA-C [address] [place] [address] 312095 Physician Skinning Machine Feeder Urology 02/03/23 [place] [address] [place] [address] Assigned PCP 02/06/23 Alissa Perez PA-C [address] [place] [address] 408215 Physician Skinning Machine Feeder Surgery 09/04/23 Lakshmi Wilhelm PA-C [address] [place] [address] 695995 Physician Skinning Machine Feeder Urology 09/16/23 Aidee Valero PA-C [address] [place] [address] 880895 Assigned Musculoskeletal Provider 04/17/24 02/14/25 Carlos Joyner MD [address] [place] [address] 664915 Urology 01/26/25 Jadon Floyd MD [address] [place] [address] 618685 Physician Physical Medicine and Rehabilitation 01/31/25 Tanisha Marlow 4120 [facility] [address] 03/30/24 documented as of this encounter
--- OUTSIDE RECORDS SUMMARY | 2025-02-26 23:15 | XMS_ITS | Encounter Summary ---
Author Organization [place] Address [address] [place] [address] Care Team Providers Care Local Sales Manager Name Role Phone Carlos Joyner MD Unavailable +[phone] Jadon Murray MD Unavailable [phone] Maru Villagomez RN Unavailable Unavailable Ang Slade MD Unavailable +[phone] Carlos Joyner MD Unavailable +[phone] Ang Slade MD Unavailable +[phone] Lakshmi WilhelmC Unavailable +[phone] Heladio [place] MD Primary Care Provider [phone] Heladio [place] MD Unavailable Alissa Perez-Juan A Unavailable [phone] Lakshmi Wilhelm PA-C Unavailable +[phone] Carlos Joyner MD Unavailable +[phone] Jadon Floyd MD Unavailable +[phone] Cayden Bejarano MD Unavailable Encounter Details Date Type Department Care Team (Latest Contact Info) Description 02/15/2025 Travel Social History Tobacco Use Types Packs/Day [...] Answer Date Recorded PHQ-2 Score 0 09/13/2024 [facility] Questionnaire Answer [...] Description 03/03/2025 9:00 AM CDT Office Visit [facility] Physical Medicine and Rehabilitation Clinic [address] [phone] Jadon Floyd MD [address] [place] [address] 03/23/2025 12:45 PM CDT Appointment [facility] [address] [facility] [address] [place] [address] [place] [address] [place] [address] 03/23/2025 1:30 PM CDT Hospital Encounter [facility] [address] [place] [address] Cayden Bejarano [place] [address] [place] [address] 03/25/2025 10:20 AM CDT Virtual Visit [facility] Sports Medicine Clinic [place] [address] [place] [address] Cayden Bejarano [place] [address] [place] [address] 04/04/2025 12:00 PM SPECIAL FORCES OFFICER Office Visit [facility] [place] [address] [place] [address]14[address] Darius Elvirginia Elder, ANIMATION DIRECTOR [facility] [address] [place], [place] 78[address] 05/30/2025 10:20 AM SPECIAL FORCES OFFICER Appointment [facility] Imaging [address] [place] [address]337[address]25[address] Carlos Joyner MD [address] [place] [address] 547035 05/31/2025 2:00 PM SPECIAL FORCES OFFICER Virtual Visit [facility] Urology Clinic [place] 909 [facility] 4th [place] [phone] Carlos Joyner MD [address] [place] [address] 07/25/2025 11:00 AM SPECIAL FORCES OFFICER Office Visit [facility] [address] [place] [address] [place] [address] [place] [address] documented as of this encounter Visit Diagnoses Not on filedocumented in this encounter Care Teams Local Sales Manager Relationship Specialty [place] [address] [place] [address] PCP - General 03/05/23 Carlos Joyner MD [address] [place] [address] Urology 12/09/19 Jadon Murray MD [facility] [address] [facility] 550 [place] [address] Referring Physician Pediatric Surgery 12/09/19 Maru Villagomez, RN Registered Nurse 12/10/19 Ang Slade MD [address] [place] [address] 394 [place], [place] 401655 Urology 04/24/20 Carlos Joyner MD [address] [place] [address] 117175 Assigned Surgical Provider 12/24/20 Ang Slade MD [address] [place] [address] 676975 Urology 12/18/22 Lakshmi Wilhelm PA-C [address] [place] [address] 426845 Physician Client Services Coordinator Urology 02/03/23 [place] [address] [place] [address] Assigned PCP 02/06/23 Alissa Perez PA-C [address] [place] [address] 262385 Physician Client Services Coordinator Surgery 09/04/23 Lakshmi Wilhelm PA-C [address] [place] [address] 033625 Physician Client Services Coordinator Urology 09/16/23 Carlos Joyner MD 909 [place], [place] 239835 Urology 01/26/25 Jadon Floyd MD 9 [place], [place] 336085 Physician Physical Medicine and Rehabilitation 01/31/25 [place] [address] [place] [address] Assigned Musculoskeletal Provider 02/15/25 Tanisha Marlow 4120 [facility] [address] 03/30/24 documented as of this encounter
--- OUTSIDE RECORDS SUMMARY | 2025-02-26 23:15 | XMS_ITS | Encounter Summary ---
Author Organization [place] Address [address] [place] [address] 15366 Care Team Providers Care Vac Press Operator Name Role Phone Carlos Joyner MD Unavailable +[phone] Jadon Murray MD Unavailable +[phone] Maru Villagomez RN Unavailable Unavailable Ang Slade MD Unavailable +[phone] Carlos Joyner MD Unavailable +[phone] Ang Slade MD Unavailable [phone] Lakshmi WilhelmC Unavailable +[phone] Heladio [place] MD Primary Care Provider [phone] Heladio [place] MD Unavailable Alissa Perez-Juan A Unavailable [phone] Lakshmi Wilhelm PA-C Unavailable +[phone] Carlos Joyner MD Unavailable +[phone] Jadon Floyd MD Unavailable +[phone] Cayden Bejarano MD Unavailable Encounter Details Date Type Department Care Team (Latest Contact Info) Description 02/21/2025 Travel Social History Tobacco Use Types Packs/Day [...] Answer Date Recorded PHQ-2 Score 0 09/13/2024 [facility] [...] Description 03/03/2025 9:00 AM CDT Office Visit [facility] Physical Medicine and Rehabilitation Clinic [address] [phone] Jadon Floyd MD [address] [place] [address] 03/23/2025 12:45 PM CDT Appointment [facility] [address] [facility] [address] [place] [address] [place] [address] [place] [address] 03/23/2025 1:30 PM CDT Hospital Encounter [facility] Imaging [address] [place] [address] Cayden Bejarano [place] [address] [place] [address] 03/25/2025 10:20 AM CDT Virtual Visit [facility] Medicine [facility] [place] [address] [place] [address] [place] [address] [place] [address] 04/04/2025 12:00 PM CROSSING SUPERVISOR Office Visit [facility] [place] [address] [place] [address] Darius Elvirginia Elder, REVERSE UNIT OPERATOR [facility] [address] [place], [place] 9524[address] 05/30/2025 10:20 AM CROSSING SUPERVISOR Appointment [facility] Imaging [address] [place] [place] [address] [place] [address]95[address]2515 Carlos Joyner MD [address] [place] [address] 411055 05/31/2025 2:00 PM CROSSING SUPERVISOR Virtual Visit [facility] Urology Clinic [place] 909 [facility] 4th [place] [phone] Carlos Joyner MD [address] [place] [address] 07/25/2025 11:00 AM CROSSING SUPERVISOR Office Visit [facility] [address] [place] [address] [place] [address] [place] [address] documented as of this encounter Visit Diagnoses Not on filedocumented in this encounter Care Teams Vac Press Operator Relationship Specialty [place] [address] [place] [address] PCP - General 03/05/23 Carlos Joyner MD [address] [place] [address] Urology 12/09/19 Jadon Murray MD [facility] 2530 [facility] 550 [place] [address] Referring Physician Pediatric Surgery 12/09/19 Maru Villagomez, RN Registered Nurse 12/10/19 Ang Slade MD [address] [place] [address] 394 [place], [place] 810985 Urology 04/24/20 Carlos Joyner MD [address] [place] [address] 444075 Assigned Surgical Provider 12/24/20 Ang Slade MD [address] [place] [place] [address] 591335 Urology 12/18/22 Lakshmi Wilhelm PA-C [address] [place] [address] 388085 Physician Mechanical Insulator Urology 02/03/23 [place] [address] [place] [address] Assigned PCP 02/06/23 Alissa Perez PA-C [address] [place] [address] 906905 Physician Mechanical Insulator Surgery 09/04/23 Lakshmi Wilhelm PA-C [address] [place] [address] 491935 Physician Mechanical Insulator Urology 09/16/23 Carlos Joyner MD 909 [place], [place] 406005 Urology 01/26/25 Jadon Floyd MD 9 [place], [place] 531085 Physician Physical Medicine and Rehabilitation 01/31/25 [place] [address] [place] [address] Assigned Musculoskeletal Provider 02/15/25 Tanisha Marlow 4120 [facility] [address] 03/30/24 documented as of this encounter
--- OUTSIDE RECORDS SUMMARY | 2025-02-26 23:15 | XMS_ITS | Encounter Summary ---
Author Organization [facility] Address [address] [place] [address] 36393 Care Team Providers Care Gunner Mate Name Role Phone Carlos Jyoner MD Unavailable +[phone] Jadon Murray MD Unavailable [phone] Maru Villagomez RN Unavailable Unavailable Ang Slade MD Unavailable [phone] Carlos Joyner MD Unavailable +[phone] Ang Slade MD Unavailable [phone] Lakshmi WilhelmC Unavailable +[phone] Heladio Willoughby MD Primary Care Provider [phone] Heladio Willoughby MD Unavailable Alissa Perez PA-Juan A Unavailable [phone] Lakshmi Wilhelm PA-C Unavailable [phone] Carlos Joyner MD Unavailable +[phone] Jadon Floyd MD Unavailable +[phone] Cayden Bejarano MD Unavailable Reason for Visit * Reason Onset Date Comments Appointment 02/16/2025 TE on 02/08/25 in structing Pt to schedule with Elissa Martinez CNP. Sugar Cane Grower does not have access to this provider. Encounter Details Date Type Department Care Team (Late st Contact Info) Description 02/16/2025 Telephone [facility] Urology [address]th [place] [phone] Carlos Joyner MD [address] [place] [address] [phone] Appointment (TE on 02/08/25 instructing Pt to schedule with Elissa Martinez CNP. Sugar Cane Grower does not have access to this provider. ) Social History Tobacco Use Types Packs/Day [...] Date Recorded PHQ-2 Score 0 09/13/2024 [facility] [place] of Occupat ional Health - Occupational Stress [...] Telephone Encounter - Rosita Velasco RN - 02/16/2025 12:48 PM CDT Spoke with Tanisha and scheduled. Rosita Velasco RN * Telephone Encounter - Kyara Lr - 02/16/2025 12:31 PM CDT [facility] Phone Message May a detailed message be left on voicemail: yes Reason for Call: Other: TE on 02/08/25 instructing Pt to schedule with Elissa Martinez CNP. Sugar Cane Grower does not have access to this provider. Please call to discuss. Thank you. Action Taken: Message routed to: [facility] Uro Travel Screening: Not Applicable Date of Service: documented in this encounter Plan of Treatment Upcoming Encounters Date Type Department Care Team (Late st Contact Info) Description 03/03/2025 9:00 AM CDT Office Visit [facility] Physical Medicine and Rehabilitation Clinic [address] 3rd [place] [phone] Jadon Floyd MD [address] [place] [address] 326315 03/23/2025 12:45 PM CDT Appointment [facility] Imaging [address] [facility] [address] [place] [address] Cayden Bejarano MD [address] [place] [address] [address] [place] [address] 03/23/2025 1:30 PM CDT Hospital Encounter [facility] Imaging [address] [place] [address] Cayden Bejarano MD [address] [place], [place] [address]A[address] [place] [address] 03/25/2025 10:20 AM CDT Virtual Visit [facility] Sports Medicine [facility] [place] [address] [place] [address] Drive [address] [place] [address] [place] [address] [place] [address] 04/04/2025 12:00 PM LABORER PRESTRESSED CONCRETE Office Visit [facility] Sleep Center [address] [phone] Sugey Mccoy, CONSUMER BANKER [address] 744964 05/30/2025 10:20 AM LABORER PRESTRESSED CONCRETE Appointment [facility] Imaging [address] [place] [address] Carlos Joyner MD [address] [place] [address] 924785 05/31/2025 2:00 PM LABORER PRESTRESSED CONCRETE Virtual Visit [facility] Urology Clinic [address] 4th [place] [address] Carlos Joyner MD [address] [place] [address] 066825 07/25/2025 11:00 AM LABORER PRESTRESSED CONCRETE Office Visit [facility] [address] [place] [address] [place] [address] [place], [place] [phone] documented as of this encounter Visit Diagnoses Not on filedocumented in this encounter Care Teams Gunner Mate Relationship Specialty Start [place] [address] [place] [address] PCP - General 03/05/23 Carlos Jyoner MD [address] [place] [address] 96285 Urology 12/09/19 Jadon Murray MD [facility] [address] [address] Referring Physician Pediatric Surgery 12/09/19 Maru Villagomez, OTILIO Registered Nurse 12/10/19 Ang Slade MD [address] [place] [address] 764635 Urology 04/24/20 Carlos Joyner MD [address] [place] [address] 157155 Assigned Surgical Provider 12/24/20 Ang Slade MD [address] [place] [address] 94121 Urology 12/18/22 Lakshmi Wilhelm PA-C [address] [place] [address] 82595 Physician Humid System Operator Urology 02/03/23 [place] [address] [place] [address] Assigned PCP 02/06/23 Alissa Perez PA-C [address] [place] [address] 895785 Physician Humid System Operator Surgery 09/04/23 Lakshmi Wilhelm PA-C [address] [place] [address] 40492 Physician Humid System Operator Urology 09/16/23 Carlos Joyner MD [address] [place] [address] 356025 Urology 01/26/25 Jadon Floyd MD [address] [place] [address] 493515 Physician Physical Medicine and Rehabilitation 01/31/25 [place] [address] [place] [address] Assigned Musculoskeletal Provider 02/15/25 Tanisha Marlow 4120 [facility] [address] 03/30/24 documented as of this encounter
--- OUTSIDE RECORDS SUMMARY | 2025-02-26 23:15 | XMS_ITS | Encounter Summary ---
Author Organization [place] Address [address] [place] [address] Care Team Providers Care Auto Customize Painter Name Role Phone Carlos Joyner MD Unavailable [phone] Jadon Murray MD Unavailable [phone] Maru Villagomez RN Unavailable Unavailable Ang Slade MD Unavailable +[phone] Carlos Joyner MD Unavailable +[phone] Ang Slade MD Unavailable [phone] Lakshmi Wilhelm-C Unavailable [phone] Heladio Willoughby MD Primary Care Provider [phone] Heladio Willoughby MD Unavailable Alissa Perez PA-C Unavailable [phone] SdLakshmi morales-C Unavailable +[phone] Aidee Valero PA-C Unavailable [phone] Carlos Joyner MD Unavailable +[phone] Jadon Folyd MD Unavailable [phone] Encounter Details Date Type Department Care Team (Latest Contact Info) Description 02/11/2025 Travel Social History Tobacco Use Types Packs/Day [...] than three times a week 07/16/2024 Attends Protestant Services Not on file 07/16 Active Member of Clubs or Organizations Not on f ile 07/16/2024 Attends Club or Organization Meetings Not on antelmo e 07/16/2024 Marital Status Not on file 07/16/2024 PHQ-2 Answer Date Recorded PHQ-2 Score 0 09/13/2024 [facility] Occupat ional Health - Occupational [...] [facility] [address] [phone] Jadon Floyd MD [address] [place] [address] 03/23/2025 12:[address] [facility] [address] [facility] [address] [place] [address] [place] [address] [facility] [address] [place] [address] 03/23/2025 1:30 PM CDT Hospital Encounter [facility] [address] [place] [address] [place] [address] [facility] [address] [place] [address] 03/25/2025 10:20 AM CDT Virtual Visit [facility] [place] [address] [place], [place] [address] [place] [address] [place] [address] [place] [address] [address] [place] [address] 04/04/2025 12:00 PM CENTRAL SUPPLY MANAGER Office Visit [facility] [place] [address] [place] [phone] DariusElvirginia Elder, SHAKE SAW[place] [facility] [address] [place], [place] 253334 05/30/2025 10:20 AM CENTRAL SUPPLY MANAGER Appointment [facility] Imaging [address] [place] [phone] Carlos Joyner MD [address] [place] [address] 467695 05/31/2025 2:00 PM CENTRAL SUPPLY MANAGER Virtual Visit [facility] [place] 909 [facility] 4th [place] [address] Carlos Joyner MD [address] [place] [address] [phone] 07/25/2025 11:00 AM CENTRAL SUPPLY MANAGER Office Visit [facility] [address] [place] [address] [place] [address] [place] [address] documented as of this encounter Visit Diagnoses Not on filedocumented in this encounter Care Teams Auto Customize Painter Relationship Specialty Start Date [place] [address] [place] [address] PCP - General 03/05/23 Carlos Joyner MD [address] [place] [address] [phone] Urology 12/09/19 Jadon Murray MD [facility] [address] [facility] 550 [place] [address] Referring Physician Pediatric Surgery 12/09/19 Maru Villagomez, RN Registered Nurse 12/10/19 Ang Slade MD [address] [place] [address] 394 [place] [address] Urology 04/24/20 Carlos Joyner MD [address] [place] [address] 213115 Assigned Surgical Provider 12/24/20 Ang Slade MD [address] [place] [address] 394 [place] [address] Urology 12/18/22 Lakshmi Wilhelm PA-C [address] [place] [address] 527365 Physician Chemical Plant Operator Supervisor Urology 02/03/23 [place] [address] [place] [address] Assigned PCP 02/06/23 Alissa Perez PA-C [address] [place] [address] 375185 Physician Chemical Plant Operator Supervisor Surgery 09/04/23 Lakshmi Wilhelm PA-C [address] [place] [address] 558035 Physician Chemical Plant Operator Supervisor Urology 09/16/23 Aidee Valero PA-C [address] [place] [address] 225685 Assigned Musculoskeletal Provider 04/17/24 02/14/25 Carlos Joyner MD [address] [place] [address] 180735 Urology 01/26/25 Jadon Floyd MD [address] [place] [address] 866825 Physician Physical Medicine and Rehabilitation 01/31/25 Tanisha Marlow 4120 [facility] [address] 03/30/24 documented as of this encounter
--- OUTSIDE RECORDS SUMMARY | 2025-02-26 23:16 | XMS_ITS | Encounter Summary ---
Author Organization [facility] Address [address] [place] [address]22 Care Team Providers Care Shrimp Picker Name Role Phone Carlos Joyner MD Unavailable [phone] Jadon Murray MD Unavailable [phone] Maru Villagomez RN Unavailable Unavailable Ang Slade MD Unavailable [phone] Carlos Joyner MD Unavailable +[phone] Ang Slade MD Unavailable [phone] Lakshmi WilhelmC Unavailable [phone] Heladio Willoughby MD Primary Care Provider [phone] Heladio Willoughby MD Unavailable Alissa Perez-Juan A Unavailable [phone] Lakshmi Wilhelm PA-C Unavailable [phone] Carlos Joyner MD Unavailable +[phone] Jadon Floyd MD Unavailable +[phone] Cayden Bejarano MD Unavailable Encounter Details Date Type Department Care Team (Late st Contact Info) Description 02/25/2025 Results Follow-Up [facility] Urology Clinic [address] 4th [place] [address] Rosita Velasco, RN Dx: Recurrent UTI (Primary Dx) Social History Tobacco [...] Answer Date Recorded PHQ-2 Score 0 09/13/2024 [facility] of Occupat ional Health - [...] 03/03/2025 9:00 AM CDT Office Visit [facility] Physical Medicine and Rehabilitation Clinic [address] [phone] Jadon Floyd MD [address] [place] [address] 285965 03/23/2025 12:45 PM CDT Appointment [facility] [address] [facility] [address] [place] [address] [place]jarano [place] [address] [place], [place] [address]A[address] [place] [address] 03/23/2025 1:30 PM CDT Hospital Encounter [facility] [address] [place] [address] [place] [address] [facility] [address] [place] [address] 03/25/2025 10:20 AM CDT Virtual Visit [facility] Sports Medicine [facility] [place] [address] [place] [address] [place] [address] [place] [address] 04/04/2025 12:00 PM SAMPLE MOUNTER Office Visit [facility] [place] [address] [place] [address] Sugey Mccoy, CLINICAL TRIAL ASSISTANT [facility] [address] [place] [address] 05/30/2025 10:20 AM SAMPLE MOUNTER Appointment [facility] Imaging [address] [place] [address]25[address] Carlos Joyner MD [address] [place] [address] 794925 05/31/2025 2:00 PM SAMPLE MOUNTER Virtual Visit [facility] Urology Clinic [place] [address] [place] [address] 4th [place] [address] Carlos Joyner MD [address] [place] [address] 558875 07/25/2025 11:00 AM SAMPLE MOUNTER Office Visit [facility] [address] [place] [address] [place] [address] [place] [address] documented as of this encounter Visit Diagnoses Diagnosis Recurrent UTI- Primary Urinary tract infection, site not specified documented in this encounter Care Teams Shrimp Picker Relationship Specialty Start [place] [address] [place] [address] PCP - General 03/05/23 Carlos Joyner MD [address] [place] [address] Urology 12/09/19 Jadon Murray MD [facility] [address] [address] Referring Physician Pediatric Surgery 12/09/19 Maru Villagomez, OTILIO Registered Nurse 12/10/19 Ang Slade MD [address] [place] [address] 97[address] Urology 04/24/20 Carlos Joyner MD [address] [place] [address] 44464 Assigned Surgical Provider 12/24/20 Ang Slade MD [address] [place] [address] 53066 Urology 12/18/22 Lakshmi Wilhelm PA-C [address] [place] [address] 14683 Physician Machine Feed Operator Urology 02/03/23 [place] [address] [facility] [place], [place] 1196968 Assigned PCP 02/06/23 Alissa Perez PA-C [address] [place] [address] 090865 Physician Machine Feed Operator Surgery 09/04/23 Lakshmi Wilhelm PA-C [address] [place] [address] 164975 Physician Machine Feed Operator Urology 09/16/23 Carlos Joyner MD [address] [place] [address] 251605 Urology 01/26/25 Jadon Floyd MD [address] [place] [address] 106425 Physician Physical Medicine and Rehabilitation 01/31/25 [place] [address] [place] [address] Assigned Musculoskeletal Provider 02/15/25 Tanisha Marlow [address] [place] [address] 03/30/24 documented as of this encounter
--- OUTSIDE RECORDS SUMMARY | 2025-02-26 23:16 | XMS_ITS | Encounter Summary ---
Author Organization [facility] Address [address] [place] [address] 68131 Care Team Providers Care Director Security Risk Management Name Role Phone Carlos Joyner MD Unavailable +[phone] Jadon Murray MD Unavailable [phone] Maru Villagomez RN Unavailable Unavailable Ang Slade MD Unavailable +[phone] Carlos Joyner MD Unavailable +[phone] Ang Slade MD Unavailable [phone] Lakshmi Wilhelm PA-C Unavailable [phone] Heladio Willoughby MD Primary Care Provider [phone] Heladio Willoughby MD Unavailable Alissa Perez-Juan A Unavailable [phone] Lakshmi Wilhelm PA-C Unavailable [phone] Carlos Joyner MD Unavailable +[phone] Jadon Floyd MD Unavailable +[phone] Cayden Bejarano MD Unavailable Encounter Details Date Type Department Care Team (Late st Contact Info) Description 02/22/2025 [facility] [address] [facility] [address] [place] [address] Eliza Craty, OT 909 [place] [address] Social History Tobacco Use Types Packs/Day Years [...] Answer Date Recorded PHQ-2 Score 0 09/13/2024 [facility] of Occupat ional Health - [...] Description 03/03/2025 9:00 AM CDT Office Visit [facility] Physical Medicine and Rehabilitation Clinic [address] [phone] Jadon Floyd MD [address] [place] [address] 03/23/2025 12:45 PM CDT Appointment [facility] Imaging [address] [facility] [address] [place] [address] [place] [address] [facility] [address] [place] [address] 03/23/2025 1:30 PM CDT Hospital Encounter [facility] [address] [facility] [address] [place] [address] [place] [address] [facility] [place] [address] 03/25/2025 10:20 AM CDT Virtual Visit [facility] Sports Medicine [facility] [place] [address] [place] [address] [place] [address] [place] [address] 04/04/2025 12:00 PM FISHING ROD ASSEMBLER Office Visit [facility] Sleep Center [place] [address] [place] [address] Sugey Mccoy APRN [facility] [address] [place] [address] [address] [place], [place] 505004 05/30/2025 10:20 AM FISHING ROD ASSEMBLER Appointment [facility] Imaging [address] [place] [address] Carlos Joyner MD [address] [place] [address] 479335 05/31/2025 2:00 PM FISHING ROD ASSEMBLER Virtual Visit [facility] Urology Clinic [place] 909 [facility] 4th [place] [address] Carlos Joyner MD [address] [place] [address] 948335 07/25/2025 11:00 AM FISHING ROD ASSEMBLER Office Visit [facility] [address] [place] [address] [place] [address] [facility] [place] [address] documented as of this encounter Visit Diagnoses Not on filedocumented in this encounter Care Teams Director Security Risk Management Relationship Specialty [place] [address] [place] [address] PCP - General 03/05/23 Carlos Joyner MD [address] [place] [address] 87664 Urology 12/09/19 Jadon Murray MD [facility] 2530 [facility] S [address] [address] Referring Physician Pediatric Surgery 12/09/19 Maru Villagomez, OTILIO Registered Nurse 12/10/19 Ang Slade MD [address] [place] [address] 345845 Urology 04/24/20 Carlos Joyner MD [address] [place] [address] 33990 Assigned Surgical Provider 12/24/20 Ang Slade MD [address] [place] [address] 059865 Urology 12/18/22 Lakshmi Wilhelm PA-C [address] [place] [address] 613265 Physician Traffic Control Specialist Urology 02/03/23 [place] [address] [place] [address] Assigned PCP 02/06/23 Alissa Perez PA-C [address] [place] [address] 945235 Physician Traffic Control Specialist Surgery 09/04/23 Lakshmi Wilhelm PA-C [address] [place] [address] 278935 Physician Traffic Control Specialist Urology 09/16/23 Carlos Joyner MD [address] [place] [address] 373385 Urology 01/26/25 Jadon Floyd MD [address] [place] [address] 327645 Physician Physical Medicine and Rehabilitation 01/31/25 [place] [address] [place], [place] 309567 Assigned Musculoskeletal Provider 02/15/25 Tanisha Marlow 4120 [facility] [id number] 03/30/24 documented as of this encounter
--- OUTSIDE RECORDS SUMMARY | 2025-02-26 23:16 | XMS_ITS | Encounter Summary ---
Author Organization [place] Address [address] [place] [address] 83153 Care Team Providers Care Privacy Officer Name Role Phone Carlos Joyner MD Unavailable [phone] Jadon Murray MD Unavailable +[phone] Maru Villagomez RN Unavailable Unavailable Ang Slade MD Unavailable [phone] Carlos Joyner MD Unavailable +[phone] Ang Slade MD Unavailable [phone] Lakshmi Wilhelm-C Unavailable [phone] Heladio Willoughby MD Primary Care Provider [phone] Heladio Willoughby MD Unavailable Alissa Perez PA-C Unavailable [phone] Lakshmi Wilhelm-C Unavailable [phone] Aidee Valero PA-C Unavailable [phone] Carlos Joyner MD Unavailable +[phone] Jadon Floyd MD Unavailable +[phone] Cayden Bejarano MD Unavailable Encounter Details Date Type Department Care Team (Late st Contact Info) Description 06/23/2024 [facility] Medical [facility] Urology [place] 916299 [facility] 4th [place] [address] Carlos Joyner MD [address] [place] [address] 548575 Social History Tobacco Use Types Packs/Day Years [...] [facility] Center Physical Medicine and Rehabilitation Clinic [address] [place] [address] Jadon Floyd MD [address] [place] [address] 03/23/2025 12:45 PM CDT Appointment [facility] [address] [facility] [address] [place] [address]15 [place] [address] [place] [address] 03/23/2025 1:30 PM CDT Hospital Encounter [facility] [address] [facility] [address] [place] [address] [place] [address] [place] [address] 03/25/2025 10:20 AM CDT Virtual Visit [facility] Sports Medicine [facility] [address] [place] [address] [address] [place] [address] [place] [address] [place] [address] 04/04/2025 12:00 PM MANAGER PROGRAMS Office [facility] Sleep [facility] [address] [place] [phone] Sugey Mccoy, OBGYN SPECIALIST [address] [address] 05/30/2025 10:20 AM MANAGER PROGRAMS Appointment [facility] [address] [facility] [address] [place] [address] Carlos Joyner MD [address] [place] [address] 615375 05/31/2025 2:00 PM MANAGER PROGRAMS Virtual Visit [facility] Urology Clinic [address]th [place] [address] Carlos Joyner MD 909 [place] [address] 07/25/2025 11:00 AM MANAGER PROGRAMS Office Visit [facility] [address] [place] [address] [place] [address] [address] [place], [place] [phone] documented as of this encounter Visit Diagnoses Not on filedocumented in this encounter Care Teams Privacy Officer Relationship Specialty Start [place] [address] [address] [place], [place] [phone] PCP - General 03/05/23 Carlos Joyner MD [address] [place] [address] 31095 Urology 12/09/19 Jadon Murray MD [facility] [address] [address] Referring Physician Pediatric Surgery 12/09/19 Maru Villagomez, OTILIO Registered Nurse 12/10/19 Ang Slade MD [address] [place] [address] Urology 04/24/20 Carlos Joyner MD [address] [place] [address] 38794 Assigned Surgical Provider 12/24/20 Ang Slade MD [address] [place] [address] 78550 Urology 12/18/22 Lakshmi Wilhelm PA-C [address] [place] [address] 98915 Physician Net Fisher Urology 02/03/23 [place] [address] [place] [address] Assigned PCP 02/06/23 Alissa Perez PA-C [address] [place] [address] 64433 Physician Net Fisher Surgery 09/04/23 Lakshmi Wilhelm PA-C [address] [place] [address] Physician Net Fisher Urology 09/16/23 Aidee Valero PA-C [address] [place] [address] 13097 Assigned Musculoskeletal Provider 04/17/24 02/14/25 Carlos Joyner MD [address] [place] [address] 745[address] Urology 01/26/25 Jadon Floyd MD [address] [place] [address] 717295 Physician Physical Medicine and Rehabilitation 01/31/25 [place] [address] [place] [address] Assigned Musculoskeletal Provider 02/15/25 Tanisha Marlow 4120 [facility] [address] 03/30/24 documented as of this encounter
--- OUTSIDE RECORDS SUMMARY | 2025-02-26 23:16 | XMS_ITS | Encounter Summary ---
Author Organization Check Address [address] [place] [address] 28563 Care Team Providers Care Food Dehydrator Operator Name Role Phone Carlos Joyner MD Unavailable +[phone] Jadon Murray MD Unavailable +[phone] Maru Villagomez RN Unavailable Unavailable Ang Slade MD Unavailable +[phone] Carlos Joyner MD Unavailable +[phone] Ang Slade MD Unavailable [phone] Lakshmi Wilhelm-C Unavailable +[phone] Heladio Willoughby MD Primary Care Provider +[phone] Heladio Willoughby MD Unavailable Alissa Perez PA-C Unavailable [phone] Lakshmi Wilhelm-C Unavailable +[phone] Aidee Valero PA-C Unavailable +[phone] Carlos Joyner MD Unavailable +[phone] Jadon Floyd MD Unavailable +[phone] Cayden Bejarano MD Unavailable Encounter Details Date Type Department Care Team (Late st Contact Info) Description 12/06/2024 [facility] Urology [place] [address] [facility] 4th [place] [address] Rosita Velasco RN Social History Tobacco Use Types Packs/Day [...] than three times a week 07/16/2024 Attends Taoist Services Not on file 07/16 Active Member of Clubs or Organizations Not on f ile 07/16/2024 Attends Club or Organization Meetings Not on antelmo e 07/16/2024 Marital Status Not on file 07/16/2024 PHQ-2 Answer Date Recorded PHQ-2 Score 0 09/13/2024 [facility] of Occupat ional Health - Occupational Stress [...] Description 03/03/2025 9:00 AM CDT Office Visit [facility] [address] [phone] Jadon Floyd MD [address] [place] [address] 554955 03/23/2025 12:45 PM CDT Appointment [facility] Imaging [address] [facility] [address] [place] [address] [place] [address] [facility] [address] [place] [address] 03/23/2025 1:30 PM CDT Hospital Encounter [facility] Imaging [address] [place] [address] [place] [address] [facility] [address] [place] [address] 03/25/2025 10:20 AM CDT Virtual Visit [facility] [place] [address] [place] [address] [place] [address]ANC[address] [place] [address] 04/04/2025 12:00 PM GROUND MIXER Office Visit [facility] [place] [address] [place] [address] Sugey Mccoy, PT [facility] [address] [place], [place] [address]E [address] [place], [place] [address] 05/30/2025 10:20 AM GROUND MIXER Appointment [facility] Imaging [address] [place] [address] Carlos Joyner MD [address] [place] [address] 196615 05/31/2025 2:00 PM GROUND MIXER Virtual Visit [facility] [place] [address] [place] [address] 4th [place] [address] Carlos Joyner MD [address] [place] [address] 781165 07/25/2025 11:00 AM GROUND MIXER [facility] [address] [place] [address] [place] [address] [facility] [place] [address] documented as of this encounter Visit Diagnoses Not on filedocumented in this encounter Care Teams Food Dehydrator Operator Relationship Specialty Start [place] [address] [facility] [place] [address] PCP - General 03/05/23 Carlos Joyner MD [address] [place] [address] 832055 Urology 12/09/19 Jadon Murray MD [facility] [address] [address] Referring Physician Pediatric Surgery 12/09/19 Maru Villagomez, RN Registered Nurse 12/10/19 Ang Slade MD [address] [place] [address] 584[address] Urology 04/24/20 Carlos Joyner MD [address] [place] [address] 59726 Assigned Surgical Provider 12/24/20 Ang Slade MD [address] [place] [address] 02623 Urology 12/18/22 Lakshmi Wilhelm PA-C [address] [place] [address] 64083 Physician Plaster Lather Urology 02/03/23 [place] [address] [facility] [place], [place] 3550168 Assigned PCP 02/06/23 Alissa Perez PA-C [address] [place] [address] 200035 Physician Plaster Lather Surgery 09/04/23 Lakshmi Wilhelm PA-C [address] [place] [address] 922595 Physician Plaster Lather Urology 09/16/23 Aidee Valero PA-C [address] [place] [address] 11662 Assigned Musculoskeletal Provider 04/17/24 02/14/25 Carlos Joyner MD [address] [place] [address] 096625 Urology 01/26/25 Jadon Floyd MD [address] [place] [address] 551415 Physician Physical Medicine and Rehabilitation 01/31/25 [place] [address] [place] [address] Assigned Musculoskeletal Provider 02/15/25 Tanisha Marlow 4120 [facility] [address] 03/30/24 documented as of this encounter
--- OUTSIDE RECORDS SUMMARY | 2025-02-26 23:16 | XMS_ITS | Encounter Summary ---
Author Organization [place] Address [address] [place] [address]267 Care Team Providers Care Remarketing Rep Name Role Phone Carlos Joyner MD Unavailable + [phone] Jadon Murray MD Unavailable +[phone] Maru Villagomez RN Unavailable Unavailable Ang Slade MD Unavailable [phone] Carlos Joyner MD Unavailable + [phone] Ang Slade MD Unavailable +[phone] Lakshmi Wilhelm-C Unavailable +[phone] Heladio Willoughby MD Primary Care Provider [phone] Heladio Willoughby MD Unavailable Alissa Perez PA-C Unavailable [phone] Lakshmi Wilhelm-C Unavailable +[phone] Aidee Valero PA-C Unavailable +[phone] Carlos Joyner MD Unavailable + [phone] Jadon Floyd MD Unavailable +[phone] Cayden Bejarano MD Unavailable Encounter Details Date Type Department Care Team (Late st Contact Info) Description 06/15/[address] [address] Sarika Calhoun MA Social History Tobacco [...] Description 03/03/2025 9:00 AM CDT Office Visit [facility] Rehabilitation Clinic [address] [address] Jadon Floyd MD [address] [place] [address] 246925 03/23/2025 12:45 PM CDT Appointment [facility] Imaging [address] [place] [address] [place] [address] [place] [address] 03/23/2025 1:30 PM CDT Hospital Encounter [facility] Imaging [address] [facility] [address] [place] [address] Cayden [place]jar[place] [address] [place] [address] [address] [place] [address] 03/25/2025 10:20 AM CDT Virtual Visit [facility] Sports Medicine [facility] [address] [place] [address] [address] [place] [address] [place] [address] [place] [address] 04/04/2025 12:00 PM UNDERGROUND HEAVY EQUIPMENT OPERATOR Office Visit [facility] Sleep [address] [phone] Sugey Mccoy, NESTOR [address] [address] 05/30/2025 10:20 AM UNDERGROUND HEAVY EQUIPMENT OPERATOR Appointment [facility] Imaging [address] [facility] [address] [place] [address] Carlos Joyner MD [address] [place] [address] 15198455 05/31/2025 2:00 PM UNDERGROUND HEAVY EQUIPMENT OPERATOR Virtual Visit [facility] Urology Clinic [address] 4th [place] [address] Carlos Joyner MD [address] [place] [address] 48061455 07/25/2025 11:00 AM UNDERGROUND HEAVY EQUIPMENT OPERATOR Office Visit [facility] [address] [place] [phone] [place] [address] [place] [phone] documented as of this encounter Visit Diagnoses Not on filedocumented in this encounter Care Teams Remarketing Rep Relationship Specialty Start [place] [address] [address] [place] [id number] PCP - General 03/05/23 Carlos Joyner MD [address] [place] [address] Urology 12/09/19 Jadon Murray MD [facility] 2530 [facility] 550 [place] [address] Referring Physician Pediatric Surgery 12/09/19 Maru Villagomez, RN Registered Nurse 12/10/19 Ang Slade MD [address] [place] [address] Urology 04/24/20 Carlos Joyner MD [address] [place] [address] 669775 Assigned Surgical Provider 12/24/20 Ang Slade MD [address] [address] Urology 12/18/22 Lakshmi Wilhelm PA-C [address] [place] [address]1454 Physician Tele Marketing Executive Urology 02/03/23 [place] [address] [place] [address] Assigned PCP 02/06/23 Alissa Perez PA-C [address] [place] [address] 36556 Physician Tele Marketing Executive Surgery 09/04/23 Lakshmi Wilhelm PA-C [address] [place] [address]3528 Physician Tele Marketing Executive Urology 09/16/23 Aidee Valero PA-C [address] [place] [address] 545755 Assigned Musculoskeletal Provider 04/17/24 02/14/25 Carlos Joyner MD [address] [place] [address] 508205 Urology 01/26/25 Jadon Floyd MD [address] [place] [address] 039745 Physician Physical Medicine and Rehabilitation 01/31/25 [place] [address] [place] [address] Assigned Musculoskeletal Provider 02/15/25 Tanisha Marlow 4120 [facility] [id number] 03/30/24 documented as of this encounter
--- OUTSIDE RECORDS SUMMARY | 2025-02-26 23:16 | XMS_ITS | Encounter Summary ---
Author Organization [place] Address [address] [place] [address]67 Care Team Providers Care Inspector Production Plastic Parts Name Role Phone Carlos Joyner MD Unavailable +[phone] Jadon Murray MD Unavailable [phone] Maru Villagomez RN Unavailable Unavailable Ang Slade MD Unavailable +[phone] Carlos Joyner MD Unavailable +[phone] Ang Slade MD Unavailable +[phone] Lakshmi WilhelmC Unavailable [phone] Heladio Willoughby MD Primary Care Provider [phone] Heladio Willoughby MD Unavailable Alissa Perez-Juan A Unavailable [phone] Lakshmi Wilhelm PA-C Unavailable +[phone] Carlos Joyner MD Unavailable +[phone] Jadon Floyd MD Unavailable +[phone] Cayden Bejarano MD Unavailable Reason for Visit * Reason Onset Date Comments Pre Visit Planning - Done 02/24/2025 Encounter Details Date Type Department Care Team (Late st Contact Info) Description 02/24/2025 PRE VISIT [facility] Urology [place] [address] [facility] 4th [place] [address] Estrella Martinez, CM 420 [facility], ROOM [address] [place] [address] Pre Visit Planning - Done Social History [...] Answer Date Recorded PHQ-2 Score 0 09/13/2024 [facility] of Occupat ional Health - [...] encounter Miscellaneous Notes * Telephone Encounter - Steve Smith CMA - 02/24/2025 1:20 PM CDT Previsit Planning Reason for visit: Follow-up Relevant Information: -Referral from Rosita Velasco RN for Kendall MINAYA -ALONA 10/15/23 Records/imaging/labs/orders: Available Rooming: Virtual documented in this encounter Plan of Treatment Upcoming Encounters Date Type Department Care Team (Late st Contact Info) Description 03/03/2025 9:00 AM CDT Office Visit [facility] Rehabilitation Clinic [address] [address] Jadon Floyd MD [address] [place] [address] 03/23/2025 12:45 PM CDT Appointment [facility] [address] [facility] [address] [place] [address] [place] [address] [place] [address] 03/23/2025 1:30 PM CDT Hospital Encounter [facility] Imaging [address] [facility] [address] [place] [address] [place]den [place]jarano [place] [address] [place] [address] [address] [place] [address] 03/25/2025 10:20 AM CDT Virtual Visit [facility] Sports Medicine [facility] [address] [place] [address] [address] [place] [address] [place] [address] [place] [address] 04/04/2025 12:00 PM STRIP ROLLER Office Visit [facility] Sleep [address] [phone] Sugey Mccoy APRN [address] [address] 05/30/2025 10:20 AM STRIP ROLLER Appointment [facility] [address] [facility] [address] [place] [address] Carlos Joyner MD [address] [place] [address] 357845 05/31/2025 2:00 PM STRIP ROLLER Virtual Visit [facility] Urology Clinic [address] 4th [place] [address] Carlos Joyner MD [address] [place] [address] 07/25/2025 11:00 AM STRIP ROLLER Office Visit [facility] [address] [place] [address] [place] [address] [facility] [place] 1999[address] documented as of this encounter Visit Diagnoses Not on filedocumented in this encounter Care Teams Inspector Production Plastic Parts Relationship Specialty [place] [address] [address] [place], [place] [phone] PCP - General 03/05/23 Carlos Joyner MD [address] [place] [address] Urology 12/09/19 Jadon Murray MD [facility] 2530 [facility] 550 [place] [address] Referring Physician Pediatric Surgery 12/09/19 Maru Villagomez, RN Registered Nurse 12/10/19 Ang Slade MD [address] [place] [address] 394 [place] [address] Urology 04/24/20 Carlos Joyner MD [address] [place] [address]48 Assigned Surgical Provider 12/24/20 Ang Slade MD [address] [place] [address] 394 [place] [address] Urology 12/18/22 Lakshmi Wilhelm PA-C [address] [place] [address]49 Physician Manager Material Urology 02/03/23 [place] [address] [place] [address] Assigned PCP 02/06/23 Alissa Perez PA-C [address] [place] [address] Physician Manager Material Surgery 09/04/23 Lakshmi Wilhelm PA-C [address] [place] [address]134 Physician Manager Material Urology 09/16/23 Carlos Joyner MD [address] [place] [address] Urology 01/26/25 Jadon Floyd MD [address] [place] [address]78 Physician Physical Medicine and Rehabilitation 01/31/25 [place] [address] [place] [address] Assigned Musculoskeletal Provider 02/15/25 Tanisha Marlow 4120 [facility] [place] [address] 03/30/24 documented as of this encounter
--- OUTSIDE RECORDS SUMMARY | 2025-02-26 23:16 | XMS_ITS | Encounter Summary ---
Author Organization [place] Address [address] [place] [address]60 Care Team Providers Care Neonatal Surgeon Name Role Phone Carlos Joyner MD Unavailable +[phone] Jadon Murray MD Unavailable +[phone] Maru Villagomez RN Unavailable Unavailable Ang Slade MD Unavailable +[phone] Carlos Joyner MD Unavailable +[phone] Ang Slade MD Unavailable +[phone] Lakshmi WilhelmC Unavailable +[phone] Heladio Willoughby MD Primary Care Provider [phone] Heladio Willoughby MD Unavailable Alissa Perez-Juan A Unavailable [phone] Lakshmi Wilhelm PA-C Unavailable [phone] Carlos Joyner MD Unavailable +[phone] Jadon Floyd MD Unavailable +[phone] Cayden Bejarano MD Unavailable Encounter Details Date Type Department Care Team (Latest Contact Info) Description 02/22/2025 Travel Social History Tobacco Use Types Packs/Day [...] Date Recorded PHQ-2 Score 0 09/13/2024 [facility] [...] Description 03/03/2025 9:00 AM CDT Office Visit [facility] Physical Medicine and Rehabilitation Clinic [address] [phone] Jadon Floyd MD [address] [place] [address] 03/23/2025 12:45 PM CDT Appointment [facility] Imaging [address] [facility] [address] [place] [address] [place] [address] [place] [address] 03/23/2025 1:30 PM CDT Hospital Encounter [facility] Imaging [address] [place] [address] Cayden [place]jar[place] [address] [place] [address] 03/25/2025 10:20 AM CDT Virtual Visit [facility] Sports Medicine Clinic [place] [address] [place] [address] Cayden Bejarano [place] [address] [place] [address] 04/04/2025 12:00 PM FACILITY OPERATIONS MANAGER Office Visit [facility] [place] [address] [place] [address] Darius Elvirginia Elder, CHANNEL WORKER [facility] [address] [place], [place] 8[address] 05/30/2025 10:20 AM FACILITY OPERATIONS MANAGER Appointment [facility] Imaging [address] [place] [address] Carlos Joyner MD [address] [place] [address] 940265 05/31/2025 2:00 PM FACILITY OPERATIONS MANAGER Virtual Visit [facility] Urology Clinic [place] 909 [facility] 4th [place] [address] Carlos oJyner MD [address] [place] [address] 07/25/2025 11:00 AM FACILITY OPERATIONS MANAGER Office Visit [facility] [address] [place] [address] [place] [address] [place] [address] documented as of this encounter Visit Diagnoses Not on filedocumented in this encounter Care Teams Neonatal Surgeon Relationship Specialty [place] [address] [place] [address] PCP - General 03/05/23 Carlos Joyner MD [address] [place] [address] Urology 12/09/19 Jadon Murray MD [facility] 2530 [facility] 550 [place] [address] Referring Physician Pediatric Surgery 12/09/19 Maru Villagomez, RN Registered Nurse 12/10/19 Ang Slade MD [address] [place] [address] 394 [place], [place] 027835 Urology 04/24/20 Carlos Joyner MD [address] [place] [address] 982435 Assigned Surgical Provider 12/24/20 Ang Slade MD [address] [place] [address] 378195 Urology 12/18/22 Lakshmi Wilhelm PA-C [address] [place] [address] 128175 Physician Manager Relocation Urology 02/03/23 [place] [address] [place] [address] Assigned PCP 02/06/23 Alissa Perez PA-C [address] [place] [address] 747525 Physician Manager Relocation Surgery 09/04/23 Lakshmi Wilhelm PA-C [address] [place] [address] 067925 Physician Manager Relocation Urology 09/16/23 Carlos Joyner MD 909 [place], [place] 409165 Urology 01/26/25 Jadon Floyd MD 9 [place], [place] 156825 Physician Physical Medicine and Rehabilitation 01/31/25 [place] [address] [place] [address] Assigned Musculoskeletal Provider 02/15/25 Tanisha Marlow 4120 [facility] [address] 03/30/24 documented as of this encounter
--- OUTSIDE RECORDS SUMMARY | 2025-02-26 23:17 | XMS_ITS | Encounter Summary ---
Author Organization [place] Address [address] [place] [address]236 Care Team Providers Care Black Topper Name Role Phone Carlos Joyner MD Unavailable [phone] Jadon Murray MD Unavailable +[phone] Maru Villagomez RN Unavailable Unavailable Ang Slade MD Unavailable +[phone] Carlos Joyner MD Unavailable +[phone] Ang Slade MD Unavailable +[phone] Lakshmi Wilhelm-C Unavailable +[phone] Heladio Willoughby MD Primary Care Provider [phone] Heladio Willoughby MD Unavailable Alissa Perez PA-C Unavailable [phone] Lakshmi Wilhelm-C Unavailable [phone] Aidee Valero PA-C Unavailable +[phone] Carlos Joyner MD Unavailable +[phone] Reason for Visit * Reason Onset Date Comments Symptoms 12/06/2024 Encounter Details Date Type Department Care Team (Late st Contact Info) Description 12/06/2024 Telephone [facility] Urology Clinic [address] 4th [place] [address] Carlos Joyner MD [address] [place] [address] Symptoms Social History Tobacco Use Types Packs/Day Years [...] than three times a week 07/16/2024 Attends [employer] Services Not on file 07/16 Active Member [...] encounter Miscellaneous Notes * Telephone Encounter - Fredo Hay - 01/26/2025 1:01 PM CDT Guardian will call back to schedule appts * Telephone Encounter - Daniela Villafana - 12/06/2024 9:04 AM CDT Caller reporting the following red-flag symptom(s): vaginal bleeding 4 days post surgery Per the system red-flag symptom policy, patient was instructed to: speak with a Registered Nurse Action: Patient warm transferred to a Registered Nurse documented in this encounter Plan of Treatment Upcoming Encounters Date Type Department Care Team (Late st Contact Info) Description 03/03/2025 9:00 AM CDT Office Visit [facility] Physical Medicine and Rehabilitation Clinic [address] [place] [address] Jadon Floyd MD [address] [place] [address] 887125 03/23/2025 12:45 PM CDT Appointment [facility] [address] [facility] [address] [place] [address] [place] [address] [place] [address] 03/23/2025 1:30 PM CDT Hospital Encounter [facility] [address] [place] [address] [place] [address] [place] [address] 03/25/2025 10:20 AM CDT Virtual Visit [facility] Sports Medicine [facility] [address] [place] [address] Drive [address] [place] [address] [place] [address] [place] [address] 04/04/2025 12:00 PM LIGHT RAIL TRAIN OPERATOR Office Visit [facility] Sleep [address] [phone] Sugey Mccoy, SKATING RINK MANAGER [address] [address] 05/30/2025 10:20 AM LIGHT RAIL TRAIN OPERATOR Appointment [facility] [address] [facility] [address] [place] [address] Carlos Joyner MD [address] [place] [address] 538995 05/31/2025 2:00 PM LIGHT RAIL TRAIN OPERATOR Virtual Visit [facility] Urology Clinic [address] [phone] Carlos Joyner MD 909 [place], [place] 528[address] 07/25/2025 11:00 AM LIGHT RAIL TRAIN OPERATOR Office Visit [facility] [address] [place] [address] [place] [address] [place], [place] 9253768 documented as of this encounter Visit Diagnoses Not on filedocumented in this encounter Care Teams Black Topper Relationship Specialty [place] [address] [address] [place], [place] [phone] PCP - General 03/05/23 Carlos Joyner MD [address] [place] [address] Urology 12/09/19 Jadon Murray MD [facility] [address] [address] Referring Physician Pediatric Surgery 12/09/19 Maru Villagomez, OTILIO Registered Nurse 12/10/19 Ang Slade MD [address] [place] [address] Urology 04/24/20 Carlos Joyner MD [address] [place] [address] Assigned Surgical Provider 12/24/20 Ang Slade MD [address] [address] Urology 12/18/22 Lakshmi Wilhelm PA-C [address] [place] [address] Physician Recruitment Internship Urology 02/03/23 [place] [address] [place] [address] Assigned PCP 02/06/23 Alissa Perez PA-C [address] [place] [address] Physician Recruitment Internship Surgery 09/04/23 Lakshmi Wilhelm PA-C [address] [place] [address] Physician Recruitment Internship Urology 09/16/23 Aidee Valero PA-C [address] [place] [address] Assigned Musculoskeletal Provider 04/17/24 02/14/25 Carlos Joyner MD [address] [place] [address] Urology 01/26/25 Tanisha Marlow 4120 [facility] [address] 03/30/24 documented as of this encounter
--- OUTSIDE RECORDS SUMMARY | 2025-02-26 23:17 | XMS_ITS | Encounter Summary ---
Author Organization [place] Address [address] [place] [address]27 Care Team Providers Care Final Application Reviewer Name Role Phone Carlos Joyner MD Unavailable + [phone] Jadon Murray MD Unavailable +[phone] Maru Villagomez RN Unavailable Unavailable Ang Slade MD Unavailable +[phone] Carlos Joyner MD Unavailable +[phone] Ang Slade MD Unavailable +[phone] Lakshmi Wilhelm-C Unavailable +[phone] Heladio Willoughby MD Primary Care Provider +[phone] Heladio Willoughby MD Unavailable Alissa Perez PA-C Unavailable [phone] Lakshmi Wilhelm-C Unavailable +[phone] Aidee Valero PA-C Unavailable +[phone] Carlos Joyner MD Unavailable + [phone] Jadon Floyd MD Unavailable +[phone] Cayden Bejarano MD Unavailable Encounter Details Date Type Department Care Team (Late st Contact Info) Description 04/01/2024 [facility] Orthopedic [place] [id number] [facility] 4th [place] [address] Aidee Valero PA-C [address] [place] [address] 33274 Social History Tobacco Use Types Packs/Day Years [...] Care System [facility] [address] 3rd [place] [address] Jadon Floyd MD [address] [place] [address] 03/23/2025 12:45 PM CDT Appointment [facility] [address] [facility] [address] [place] [phone] [place]jar[place] [id number] [place] [address] [address] [place] [address] 03/23/2025 1:30 PM CDT Hospital Encounter [facility] [address] [facility] [address] [place] [address] [place] [address] [place] [address] 03/25/2025 10:20 AM CDT Virtual Visit [facility] Sports Medicine [facility] [address] [place] [address] [address] [place] [address] [place] [address] [place] [address] 04/04/2025 12:00 PM HEARING AID MECHANIC Office Visit [facility] Sleep [facility] [address] [place] [phone] Sugey Mccoy, COMMERCIAL ENGINEER [address] [address] 05/30/2025 10:20 AM HEARING AID MECHANIC Appointment [facility] [address] [facility] [address] [place] [address] Carlos Joyner MD [address] [place] [address] 05/31/2025 2:00 PM HEARING AID MECHANIC Virtual Visit [facility] Urology Clinic [address] 4th [place] [address] Carlos Joyner MD 909 [place] [address] 07/25/2025 11:00 AM HEARING AID MECHANIC Office Visit [facility] [address] [facility] [place] [phone] [place] [address], [place] [phone] documented as of this encounter Visit Diagnoses Not on filedocumented in this encounter Care Teams Final Application Reviewer Relationship Specialty Start [place] [address] [address] [place], [place] [phone] PCP - General 03/05/23 Carlos Joyner MD [address] [place] [address] Urology 12/09/19 Jadon Murray MD [facility] [address] [address] Referring Physician Pediatric Surgery 12/09/19 Maru Villagomez, OTILIO Registered Nurse 12/10/19 Ang Slade MD [address] [place] [address] Urology 04/24/20 Carlos Joyner MD [address] [place] [address] 93412 Assigned Surgical Provider 12/24/20 Ang Slade MD [address] [place] [address]67[address] Urology 12/18/22 Lakshmi Wilhelm PA-C [address] [place] [address]3730 Physician Heavy Duty Mechanic Farm Equipment Urology 02/03/23 [place] [address] [place] [address] Assigned PCP 02/06/23 Alissa Perez PA-C [address] [place] [address] Physician Heavy Duty Mechanic Farm Equipment Surgery 09/04/23 Lakshmi Wilhelm PA-C [address] [place] [address] 87574 Physician Heavy Duty Mechanic Farm Equipment Urology 09/16/23 Aidee Valero PA-C [address] [place] [address] 93431 Assigned Musculoskeletal Provider 04/17/24 02/14/25 Carlos Joyner MD [address] [place] [address] 20908 Urology 01/26/25 Jadon Floyd MD [address] [place] [address] 110985 Physician Physical Medicine and Rehabilitation 01/31/25 [place] [address] [place] [address] Assigned Musculoskeletal Provider 02/15/25 Tanisha Marlow 4120 [facility] [address] 03/30/24 documented as of this encounter
--- OUTSIDE RECORDS SUMMARY | 2025-02-26 23:17 | XMS_ITS | Encounter Summary ---
Author Organization [place] Address [address] [place] [address] Care Team Providers Care E Tailer Name Role Phone Carlos Joyner MD Unavailable + [phone] Jadon Murray MD Unavailable +[phone] Maru Villagomez RN Unavailable Unavailable Ang Slade MD Unavailable +[phone] Carlos Joyner MD Unavailable +[phone] Ang Slade MD Unavailable [phone] Lakshmi Wilhelm-C Unavailable +[phone] Heladio Willoughby MD Primary Care Provider [phone] Heladio Willoughby MD Unavailable Alissa Perez PA-C Unavailable [phone] Lakshmi Wilhelm-C Unavailable +[phone] Aidee Valero PA-C Unavailable +[phone] Carlos Joyner MD Unavailable +[phone] Jadon Floyd MD Unavailable +[phone] Cayden Bejarano MD Unavailable Encounter Details Date Type Department Care Team (Late st Contact Info) Description 08/26/2024 [facility] Urology [place] [address] [facility] 4th [place] [address] Sarika Tomlinson Social History Tobacco [...] 07/16/2024 Attends Yarsani Services Not on file 07/16 Active Member of Clubs or Organizations Not on f ile 07/16/2024 Attends Club or Organization Meetings Not on antelmo e 07/16/2024 Marital Status Not on file 07/16/2024 PHQ-2 Answer Date Recorded PHQ-2 Score Incomplete 07/21/2024 [facility] of Occupat ional Health - Occupational Stress [...] Description 03/03/2025 9:00 AM CDT Office Visit [facility] Physical Medicine and Rehabilitation Clinic [address] [phone] Jadon Floyd MD [address] [place] [address] 03/23/2025 12:45 PM CDT Appointment [facility] [address] [facility] [address] [place] [address] Cayden Bejarano MD [address] [place], [place] [address] [place] [address] 03/23/2025 1:30 PM CDT Hospital Encounter [facility] [address] [place] [address] Cayden Bejarano MD [address] [place], [place] [address]A[address] [place] [address] 03/25/2025 10:20 AM CDT Virtual Visit [facility] Sports Medicine [facility] [place] [address] [place] [address] Cayden Bejarano MD [address] [place] [address] [address] [place] [address] 04/04/2025 12:00 PM LIBRARY AIDE Office Visit [facility] [place] [address] [place] [phone] Sugey Mccoy, CAST IRON DRAIN PIPE LAYER [facility] 606 24[facility] [address] [place] [address] 05/30/2025 10:20 AM LIBRARY AIDE Appointment [facility] [address] [facility] [address] [place] [address] Carlos Joyner MD [address] [place] [address] 491215 05/31/2025 2:00 PM LIBRARY AIDE Virtual Visit [facility] Urology Clinic [place] 909 [facility] 4th [place] [address] Carlos Joyner MD [address] [place] [address] 011645 07/25/2025 11:00 AM LIBRARY AIDE Office Visit [facility] [address] [place] [address] [place] [address] [place], [place] [phone] documented as of this encounter Visit Diagnoses Not on filedocumented in this encounter Care Teams E Tailer Relationship Specialty Start [place] [address] [place] [address] PCP - General 03/05/23 Carlos Joyner MD [address] [place] [address] Urology 12/09/19 Jadon Murray MD [facility] [address] [facility] [address] [place] [address] Referring Physician Pediatric Surgery 12/09/19 Maru Villagomez, RN Registered Nurse 12/10/19 Ang Slade MD 420 [facility] [address] [place], [place] 677[address] Urology 04/24/20 Carlos Joyner MD [address] [place] [address] [id number] Assigned Surgical Provider 12/24/20 Ang Slade MD 420 [facility] 394 [place], [place] 560145 MD Urology 12/18/22 Lakshmi Wilhelm PA-C [address] [place] [address] 000475 Physician Back Shoe Worker Urology 02/03/23 [place] [address] [place] [address] Assigned PCP 02/06/23 Alissa Perez PA-C [address] [place] [address] 437635 Physician Back Shoe Worker Surgery 09/04/23 Lakshmi Wilhelm PA-C [address] [place] [address] 275765 Physician Back Shoe Worker Urology 09/16/23 Aidee Valero PA-C 909 [place] [address] Assigned Musculoskeletal Provider 04/17/24 02/14/25 Carlos Joyner MD [address] [place] [address] Urology 01/26/25 Jadon Floyd MD [address] [place] [address] Physician Physical Medicine and Rehabilitation 01/31/25 [place] [address] [place] [address] Assigned Musculoskeletal Provider 02/15/25 Tanisha Marlow 4120 [facility] [id number] 03/30/24 documented as of this encounter
--- OUTSIDE RECORDS SUMMARY | 2025-02-26 23:17 | XMS_ITS | Encounter Summary ---
Author Organization [place] Address [address] [place] [address] Care Team Providers Care Centrifuge Separator Tender Name Role Phone Carlos Joyner MD Unavailable + [phone] Jadon Murray MD Unavailable +[phone] Maru Villagomez RN Unavailable Unavailable Ang Slade MD Unavailable [phone] Carlos Joyner MD Unavailable + [phone] Ang Slade MD Unavailable [phone] Lakshmi Wilhelm-C Unavailable +[phone] Heladio Willoughby MD Primary Care Provider [phone] Heladio Willoughby MD Unavailable Alissa Perez PA-C Unavailable [phone] Lakshmi Wilhelm PA-C Unavailable +[phone] Aidee Valero PA-C Unavailable +[phone] Carlos Joyner MD Unavailable + [phone] Jadon Floyd MD Unavailable +[phone] Cayden Bejarano MD Unavailable Encounter Details Date Type Department Care Team (Late st Contact Info) Description 12/17/[address] [address] [place] [address] [place] [address] Social History Tobacco Use Types Packs/Day Years [...] 07/16/2024 Attends Mosque Services Not on file 07/16 Active Member [...] Description 03/03/2025 9:00 AM CDT Office Visit [facility] Physical Medicine and Rehabilitation Clinic [address] [phone] Jadon Floyd MD [address] [place] [address] 969595 03/23/2025 12:[address] [facility] [address] [place] [phone] [place] [address] [place] [address] 03/23/2025 1:30 PM CDT Hospital Encounter [facility] [address] [place] [address] [place] [address] [place] [address] 03/25/2025 10:20 AM CDT Virtual Visit [facility] Sports Medicine [facility] [place] [address] [facility] [address] [place] [address] [place] [address] [place] [address] 04/04/2025 12:00 PM FOREIGN FOOD COOK SPECIALTY Office Visit [facility] Sleep [facility] [address] [facility] [place] [phone] Sugey Mccoy APRN [facility] [address] [place] [address] [address] [place] [address] 05/30/2025 10:20 AM FOREIGN FOOD COOK SPECIALTY Appointment [facility] Imaging [address] [facility] [address] [place] [address] Carlos Joyner MD [address] [place] [address] 350725 05/31/2025 2:00 PM FOREIGN FOOD COOK SPECIALTY Virtual Visit [facility] Urology Clinic [address] 4th [place] [address] Carlos Joyner MD [address] [place] [address] 5[address]95 07/25/2025 11:00 AM FOREIGN FOOD COOK SPECIALTY Office Visit [place] [address]75 [place] [address] [place] [address] [place] [address] documented as of this encounter Visit Diagnoses Not on filedocumented in this encounter Care Teams Centrifuge Separator Tender Relationship Specialty Start [place] [address] [place] [address] PCP - General 03/05/23 Carlos Joyner MD [address] [place] [address] Urology 12/09/19 Jadon Murray MD [facility] 2530 [facility] [address] [place], [place] [phone] Referring Physician Pediatric Surgery 12/09/19 Maru Villagomez, RN Registered Nurse 12/10/19 Ang Slade MD [address] [place] [address] 154625 Urology 04/24/20 Carlos Joyner MD [address] [place] [address] 291835 Assigned Surgical Provider 12/24/20 Ang Slade MD [address] [place] [address]655 Urology 12/18/22 Lakshmi Wilhelm PA-C [address] [place] [address] 254795 Physician Deputy Manager Urology 02/03/23 [place] [address] [place] [address] Assigned PCP 02/06/23 Alissa Perez PA-C [address] [place] [address] Physician Deputy Manager Surgery 09/04/23 Lakshmi Wilhelm PA-C [address] [place] [address] 16058 Physician Deputy Manager Urology 09/16/23 Aidee Valero PA-C [address] [place] [address] 11393 Assigned Musculoskeletal Provider 04/17/24 02/14/25 Carlos Joyner MD [address] [place] [address] 85262 Urology 01/26/25 Jadon Floyd MD [address] [place] [address] 15949 Physician Physical Medicine and Rehabilitation 01/31/25 [place] [address] [place] [address] Assigned Musculoskeletal Provider 02/15/25 Tanisha Marlow 4120 [facility] [address] 03/30/24 documented as of this encounter
--- OUTSIDE RECORDS SUMMARY | 2025-02-26 23:17 | XMS_ITS | Encounter Summary ---
Author Organization [place] Address [address] [place] [address] Care Team Providers Care Sales Representative Rural Power Name Role Phone Carlos Joyner MD Unavailable [phone] Jadon Murray MD Unavailable [phone] Maru Villagomez RN Unavailable Unavailable Ang Slade MD Unavailable +[phone] Carlos Joyner MD Unavailable +[phone] Ang Slade MD Unavailable [phone] Lakshmi Wilhelm-C Unavailable +[phone] Heladio Willoughby MD Primary Care Provider [phone] Heladio Willoughby MD Unavailable Alissa Perez PA-C Unavailable [phone] Lakshmi Wilhelm-C Unavailable +[phone] Aidee Valero PA-C Unavailable +[phone] Reason for Visit * Reason Onset Date Comments Pre Visit Planning - Done 01/25/2025 Encounter Details Date Type Department Care Team (Late st Contact Info) Description 01/25/2025 PRE VISIT [facility] Urology Clinic [address] 4th [place] [address] Rosita Velasco RN Pre Visit Planning - Done Social History [...] than three times a week 07/16/2024 Attends Adventism Services Not on file 07/16 Active Member of Clubs or Organizations Not on f ile 07/16/2024 Attends Club or Organization Meetings Not on antelmo e 07/16/2024 Marital Status Not on file 07/16/2024 PHQ-2 Answer Date Recorded PHQ-2 Score 0 09/13/2024 [facility] of Occupat ional Health - Occupational Stress [...] Telephone Encounter - Rosita Velasco RN - 01/12/2025 4:26 PM CDT Reason for visit: Post op follow up Relevant information: s/p PCNL 12/02 Records/imaging/labs/orders: CT ordered for 01/18 Pt called: No need for a call At Rooming: standard Rosita Velasco RN 01/12/2025 4:26 PM documented in this encounter Plan of Treatment Upcoming Encounters Date Type Department Care Team (Late st Contact Info) Description 03/03/2025 9:00 AM CDT Office Visit [facility] Physical Medicine and Rehabilitation Clinic [address] [phone] Jadon Floyd MD [address] [place] [address] 601945 03/23/2025 12:45 PM CDT Appointment [facility] [address] [facility] [address] [place] [address] [place] [address] [place] [address] 03/23/2025 1:30 PM CDT Hospital Encounter [facility] [address] [facility] [address] [place] [address] Cayden [place]jarano [place] [address] [place] [address] [address] [place] [address] 03/25/2025 10:20 AM CDT Virtual Visit [facility] Sports Medicine Clinic [place] [address] [place] [address] [place] [address] [place] [address] 04/04/2025 12:00 PM SIGNAL OPERATOR LINGUIST Office Visit [facility] Sleep [address] [phone] Sugey Mccoy, CONTINUITY CLERK [address] 175414 05/30/2025 10:20 AM SIGNAL OPERATOR LINGUIST Appointment [facility] [address] [facility] [address] [place] [address] Carlos Joyner MD [address] [place] [address] 05/31/2025 2:00 PM SIGNAL OPERATOR LINGUIST Virtual Visit [facility] Urology [address] 4th [place] [address] Carlos Joyner MD [address] [place] [address] 07/25/2025 11:00 AM SIGNAL OPERATOR LINGUIST Office Visit [address] [phone] [place] [address] [address] [place] [phone] documented as of this encounter Visit Diagnoses Not on filedocumented in this encounter Care Teams Sales Representative Rural Power Relationship Specialty Start [place] [address] [address] [place] [phone] PCP - General 03/05/23 Carlos Joyner MD [address] [place] [address] 985465 Urology 12/09/19 Jadon Murray MD [facility] [address] [address] Referring Physician Pediatric Surgery 12/09/19 Maru Villagomez, RN Registered Nurse 12/10/19 Ang Slade MD [address] [place] [address] Urology 04/24/20 Carlos Joyner MD [address] [place] [address] 28930 Assigned Surgical Provider 12/24/20 Ang Slade MD [address] [place] [address] Urology 12/18/22 Lakshmi Wilhelm PA-C [address] [place] [address] 7[address] Physician Telegraph Office Telephone Clerk Urology 02/03/23 [place] [address] [place] [address] Assigned PCP 02/06/23 Alissa Perez PA-C [address] [place] [address] 458225 Physician Telegraph Office Telephone Clerk Surgery 09/04/23 Lakshmi Wilhelm PA-C [address] [place] [address] 594535 Physician Telegraph Office Telephone Clerk Urology 09/16/23 Aidee Valero PA-C [address] [place] [address] 037615 Assigned Musculoskeletal Provider 04/17/24 02/14/25 Tanisha Marlow 4120 [facility] [address] 03/30/24 documented as of this encounter
--- OUTSIDE RECORDS SUMMARY | 2025-02-26 23:17 | XMS_ITS | Encounter Summary ---
Author Organization [facility] Address [address] [place] [address] 12664 Care Team Providers Care Emergency Room Physician Name Role Phone Carlos Joyner MD Unavailable [phone] Jadon Murray MD Unavailable +[phone] Maru Villagomez RN Unavailable Unavailable Ang Slade MD Unavailable +[phone] Carlos Joyner MD Unavailable +[phone] Ang Slade MD Unavailable [phone] Lakshmi Wilhelm-C Unavailable +[phone] Heladio Willoughby MD Primary Care Provider [phone] Heladio Willoughby MD Unavailable Alissa Perez PA-C Unavailable [phone] Lakshmi Wilhelm PA-C Unavailable +[phone] Aidee Valero PA-C Unavailable +[phone] Carlos Joyner MD Unavailable +[phone] Jadon Floyd MD Unavailable +[phone] Cayden Bejarano MD Unavailable Encounter Details Date Type Department Care Team (Late st Contact Info) Description 01/12/2025 Results Follow-Up [facility] [address] [place] [address] Sugey Mccoy, NON DESTRUCTIVE TESTING SCIENTIST PROTECTION SPECIALIST [address] [place] [address] Subj: Sleep study results Social History Tobacco Use Types Packs/Day Years [...] than three times a week 07/16/2024 Attends Uats[employer] Services Not on file 07/16 Active Member of Clubs or Organizations Not on f ile 07/16/2024 Attends Club or Organization Meetings Not on antelmo e 07/16/2024 Marital Status Not on file 07/16/2024 PHQ-2 Answer Date Recorded PHQ-2 Score 0 09/13/2024 [facility] - [...] [facility] Physical Medicine [facility] Rehabilitation Clinic [address] [phone] Jadon Floyd MD [address] [place] [address] 586075 03/23/2025 12:45 PM CDT Appointment [facility] [address] [place] [address] Cayden Bejarano MD [address] [place] [address] [address] [place] [address] 03/23/2025 1:30 PM CDT Hospital Encounter [facility] [address] [place] [address] [place] [address] [place] [address] 03/25/2025 10:20 AM CDT Virtual Visit [facility] [place] [address] [facility] [address] [place] [address] [place] [address] [place] [address] 04/04/2025 12:00 PM XRAY TECH Office Visit [facility] Sleep [facility] [address] [place] [address] Sugey Mccoy APRN [facility] [address] [place] [address] [address] [place], [place] 187604 05/30/2025 10:20 AM XRAY TECH Appointment [facility] [address] [facility] [address] [place] [address] Carlos Joyner MD [address] [place] [address] 659095 05/31/2025 2:00 PM XRAY TECH Virtual Visit [facility] Urology Clinic [address] 4th [place] [address] Carlos Joyner MD [address] [place] [address] 854015 07/25/2025 11:00 AM XRAY TECH Office Visit [place] [address] [place] [address] [place] [address] [place] [address] documented as of this encounter Visit Diagnoses Not on filedocumented in this encounter Care Teams Emergency Room Physician Relationship Specialty [place] [address] [place] [address] PCP - General 03/05/23 Carlos Joyner MD [address] [place] [address] Urology 12/09/19 Jadon Murray MD [facility] [address] [phone] Referring Physician Pediatric Surgery 12/09/19 Maru Villagomez, RN Registered Nurse 12/10/19 Ang Slade MD [address] [place] [address] 433805 Urology 04/24/20 Carlos Joyner MD [address] [place] [address] 897615 Assigned Surgical Provider 12/24/20 Ang Slade MD [address] [place] [address] 534675 Urology 12/18/22 Lakshmi Wilhelm PA-C [address] [place] [address] 625935 Physician [employer] Dean Urology 02/03/23 [place] [address] [place] [address] Assigned PCP 02/06/23 Alissa Perez PA-C [address] [place] [address] Physician [employer] Dean Surgery 09/04/23 Lakshmi Wilhelm PA-C [address] [place] [address]60[address] Physician [employer] Dean Urology 09/16/23 Aidee Valero PA-C [address] [place] [address] Assigned Musculoskeletal Provider 04/17/24 02/14/25 Carlos Joyner MD [address] [place] [address] 15573 Urology 01/26/25 Jadon Floyd MD [address] [place] [address] Physician Physical Medicine and Rehabilitation 01/31/25 [place] [address] [place] [address] Assigned Musculoskeletal Provider 02/15/25 Tanisha Marlow 4120 [facility] [address] 03/30/24 documented as of this encounter
--- OUTSIDE RECORDS SUMMARY | 2025-02-26 23:17 | XMS_ITS | Encounter Summary ---
Author Organization [facility] Address [address] [place] [address] Care Team Providers Care Ager Operator Name Role Phone Carlos Joyner MD Unavailable + [phone] Jadon Murray MD Unavailable +[phone] Maru Villagomez RN Unavailable Unavailable Ang Slade MD Unavailable +[phone] Carlos Joyner MD Unavailable + [phone] Ang Slade MD Unavailable +[phone] Lakshmi Wilhelm-C Unavailable +[phone] Heladio Willoughby MD Primary Care Provider [phone] Heladio Willoughby MD Unavailable Alissa Perez PA-C Unavailable [phone] Lakshmi Wilhelm-C Unavailable [phone] Aidee Valero PA-C Unavailable +[phone] Carlos Joyner MD Unavailable + [phone] Jadon Floyd MD Unavailable +[phone] Cayden Bejarano MD Unavailable Encounter Details Date Type Department Care Team (Late st Contact Info) Description 08/20/[address] [address] Mercy Feliz, RN Social History Tobacco Use Types Packs/Day [...] Answer Date Recorded PHQ-2 Score Incomplete 07/21/2024 [facility] - Occupational [...] [facility] Physical [facility] Rehabilitation Clinic [address]rd [place] [phone] Jadon Floyd MD [address] [place] [address] 03/23/2025 12:45 PM CDT Appointment [facility] [address] [facility] [address] [place] [address] [place] [address] [place] [address] 03/23/2025 1:30 PM CDT Hospital Encounter [facility] [address] [place] [address] Cayden Bejarano [place] [address] [place] [address] 03/25/2025 10:20 AM CDT Virtual Visit [facility] [place] [address] [place], [place] [address] [place] [address] [place] [address] [address] [place] [address] 04/04/2025 12:00 PM BRICK SORTER Office Visit [facility] [place] [address] [place] [phone] Sugey Mccoy, IRRIGATION TAX ASSESSOR COLLECTOR [facility] [address] [place] [address] [address] [place] [address] 05/30/2025 10:20 AM BRICK SORTER Appointment [facility] [address] [facility] [address] [place] [address] Carols Joyner MD [address] [place] [address] 361515 05/31/2025 2:00 PM BRICK SORTER Virtual Visit [facility] Urology [facility] [place] 909 [facility] 4th [place] [address] Carlos Joyner MD [address] [place] [address] 451815 07/25/2025 11:00 AM BRICK SORTER Office Visit [facility] [address] [place] [address] [place] [address] [place], [place] 1888668 documented as of this encounter Visit Diagnoses Not on filedocumented in this encounter Care Teams Ager Operator Relationship Specialty Start [place] [address] [place] [address] PCP - General 03/05/23 Carlos Joyner MD [address] [place] [address] 075[address] Urology 12/09/19 Jadon Murray MD [facility] 2530 [facility] 550 [place] [address] Referring Physician Pediatric Surgery 12/09/19 Maru Villagomez, RN Registered Nurse 12/10/19 Ang Slade MD 420 [facility] 394 [place], [place] 774555 MD Urology 04/24/20 Carlos Joyner MD [address] [place] [address] [id number] Assigned Surgical Provider 12/24/20 Ang Slade MD 420 [facility] 394 [place], [place] 160[address] MD Urology 12/18/22 Lakshmi Wilhelm PA-C [address] [place] [address] 232565 Physician Dictaphone Typist Urology 02/03/23 [place] [address] [place] [address] Assigned PCP 02/06/23 Alissa Perez PA-C [address] [place] [address] 466995 Physician Dictaphone Typist Surgery 09/04/23 Lakshmi Wilhelm PA-C [address] [place] [address] 997265 Physician Dictaphone Typist Urology 09/16/23 Aidee Valero PA-C [address] [place] [address] 54279 Assigned Musculoskeletal Provider 04/17/24 02/14/25 Carlos Joyner MD [address] [place] [address] 81641 Urology 01/26/25 Jadon Floyd MD [address] [place] [address] 38619 Physician Physical Medicine and Rehabilitation 01/31/25 [place] [address] [place] [address] Assigned Musculoskeletal Provider 02/15/25 Tanisha Marlow 4120 [facility] [address] 03/30/24 documented as of this encounter
--- OUTSIDE RECORDS SUMMARY | 2025-02-26 23:17 | XMS_ITS | Encounter Summary ---
Author Organization [facility] Address [address] [place] [address]. [place] [address] Care Team Providers Care Clay Washer Name Role Phone Carlos Joyner MD Unavailable [phone] Jadon Murray MD Unavailable +[phone] Maru Villagomez RN Unavailable Unavailable Ang Slade MD Unavailable +[phone] Carlos Joyner MD Unavailable +[phone] Ang Slade MD Unavailable +[phone] Lakshmi Wilhelm-C Unavailable [phone] Heladio Willoughby MD Primary Care Provider [phone] Heladio Willoughby MD Unavailable Alissa Perez PA-C Unavailable [phone] Lakshmi Wilhelm-C Unavailable [phone] Aidee Valero PA-C Unavailable [phone] Encounter Details Date Type Department Care Team (Late st Contact Info) Description 01/24/2025 Telephone [facility] [address] [place] [address] [place] [address] [place] [address] Social History Tobacco Use Types [...] than three times a week 07/16/2024 Attends Jewish Services Not on file 07/16 Active Member of Clubs or Organizations Not on f ile 07/16/2024 Attends Club or Organization Meetings Not on antelmo e 07/16/2024 Marital Status Not on file 07/16/2024 PHQ-2 Answer Date Recorded PHQ-2 Score 0 09/13/2024 [facility] - [...] encounter Miscellaneous Notes * Telephone Encounter - Kalee Vogel RN - 01/25/2025 9:51 AM CDT RN called and spoke to Tanisha at [employer]. Reviewed referral and provider recommendation.Provided referral scheduling phone number. Tanisha verbalized understanding and denies questions. Kalee Vogel RN [facility] * Telephone Encounter - Heladio Willoughby MD - 01/24/2025 9:02 AM CDT Hi Nurse Triage, I saw this patient recently for pressure wound. I do not see that she is currently following with PM&R. I would recommend a referral to PM&R to help assess for her recurrent pressure wounds and come up with good plan for management. I have placed referral. Please let guardian and care team know. Thanks, Heladio Elder. MD Case [facility] 01/24/2025 documented in this encounter Plan of Treatment Upcoming Encounters Date Type Department Care Team (Late st Contact Info) Description 03/03/2025 9:00 AM CDT Office Visit [facility] Physical Medicine and Rehabilitation Clinic [address] 3rd [place] [address] Jadon Floyd MD [address] [place] [address] 993105 03/23/2025 12:45 PM CDT Appointment [facility] [address] [place] [address] [place]den [place]jar[place] [address] [place] [address] [address] [place] [address] 03/23/2025 1:30 PM CDT Hospital Encounter [facility] [address] [facility] [address] [place] [address] Cayden [place]jarano MD [address] [place] [address] [address] [place] [address] 03/25/2025 10:20 AM CDT Virtual Visit [facility] Sports Medicine Clinic [place] [address] [place] [address] [address] [place] [address] [place] [address] [place] [address] 04/04/2025 12:00 PM SOLUTION DEVELOPER Office Visit [facility] Sleep [address] [phone] Sugey Mccoy, STAFFING CONSULTANT [address] [id number] 05/30/2025 10:20 AM SOLUTION DEVELOPER Appointment [facility] [address] [facility] [address] [place] [address] Carlos Joyner MD [address] [place] [address] 491355 05/31/2025 2:00 PM SOLUTION DEVELOPER Virtual Visit [facility] Urology Clinic [address] 4th [place] [address]4800 Carlos Joyner MD [address] [place] [address] 07/25/2025 11:00 AM SOLUTION DEVELOPER Office Visit [facility] [address] [place] [phone] [place] [address] [place], [place] [phone] documented as of this encounter Visit Diagnoses Not on filedocumented in this encounter Care Teams Clay Washer Relationship Specialty Start Date End [place] [address] [place] [address] [id number] PCP - General 03/05/23 Carlos Joyner MD [address] [place] [address] 769445 Urology 12/09/19 Jadon Murray MD [facility] [address] [address] Referring Physician Pediatric Surgery 12/09/19 Maru Villagomez, OTILIO Registered Nurse 12/10/19 Ang Slade MD [address] [place] [address] 15[address] Urology 04/24/20 Carlos Joyner MD [address] [place] [address] 768645 Assigned Surgical Provider 12/24/20 Ang Slade MD [address] [place] [address] 753015 MD Urology 12/18/22 Lakshmi Wilhelm PA-C [address] [place] [address] 13654 Physician Scrum Master Urology 02/03/23 [place] [address] [place] [address] Assigned PCP 02/06/23 Alissa Perez PA-C [address] [place] [address] 881545 Physician Scrum Master Surgery 09/04/23 Lakshmi Wilhelm PA-C [address] [place] [address] 407315 Physician Scrum Master Urology 09/16/23 Aidee Valero PA-C [address] [place] [address] 161875 Assigned Musculoskeletal Provider 04/17/24 02/14/25 Tanisha Marlow 4120 [facility] [address] 03/30/24 documented as of this encounter
--- OUTSIDE RECORDS SUMMARY | 2025-02-26 23:18 | XMS_ITS | Encounter Summary ---
Author Organization [place] Address [address] [place] [address] Care Team Providers Care Waterworks Supervisor Name Role Phone Carlos Joyner MD Unavailable [phone] Jadon Murray MD Unavailable +[phone] Maru Villagomez RN Unavailable Unavailable Ang Slade MD Unavailable +[phone] Carlos Joyner MD Unavailable +[phone] Ang Slade MD Unavailable +[phone] Lakshmi Wilhelm-C Unavailable +[phone] Heladio Willoughby MD Primary Care Provider [phone] Heladio Willoughby MD Unavailable Alissa Perez PA-C Unavailable [phone] Lakshmi Wilhelm-C Unavailable +[phone] Aidee Valero PA-C Unavailable +[phone] Carlos Joyner MD Unavailable +[phone] Jadon Floyd MD Unavailable +[phone] Cayden Bejarano MD Unavailable Encounter Details Date Type Department Care Team (Late st Contact Info) Description 02/13/2024 [facility] Urology [place] [address] [facility] 4th [place] [address] Carlos Joyner MD [address] [place] [address] 738215 Social History Tobacco Use Types Packs/Day Years [...] [facility] [address]rd [place] [address] Jadon Floyd MD [address] [place] [address] 03/23/2025 12:45 PM CDT Appointment [facility] [address] [facility] [address] [place] [address] [place] [address] [place] [address] 03/23/2025 1:30 PM CDT Hospital Encounter [facility] [address] [facility] [address] [place] [address] [place] [address] [place] [address] 03/25/2025 10:20 AM CDT Virtual Visit [facility] Sports Medicine [facility] [address] [place] [address] [address] [place] [address] [place] [address] [place] [address] 04/04/2025 12:00 PM CULINARY ARTIST Office Visit [facility] Sleep [facility] [address] [place] [phone] Sugey Mccoy, OVER THE [place] TARGETING SUPERVISOR [address] [address] 05/30/2025 10:20 AM CULINARY ARTIST Appointment [facility] [address] [facility] [address] [place] [address] Carlos Joyner MD [address] [place] [address] 385895 05/31/2025 2:00 PM CULINARY ARTIST Virtual Visit [facility] Urology Clinic [address] [place] [address] Carlos Joyner MD 909 [place] [address] 07/25/2025 11:00 AM CULINARY ARTIST Office Visit [facility] [address] [place] [address] [place] [address] [place] [place] [address] [place], [place] 6573468 documented as of this encounter Visit Diagnoses Not on filedocumented in this encounter Care Teams Waterworks Supervisor Relationship Specialty Start [place] [address] [address] [place], [place] 6125768 PCP - General 03/05/23 Carlos Joyner MD [address] [place] [address]40 Urology 12/09/19 Jadon Murray MD [facility] [address] [address] Referring Physician Pediatric Surgery 12/09/19 Maru Villagomez, OTILIO Registered Nurse 12/10/19 Ang Slade MD [address] [place] [address] 16626 Urology 04/24/20 Carlos Joyner MD [address] [place] [address] 17355 Assigned Surgical Provider 12/24/20 Ang Slade MD [address] [place] [address] 37031 Urology 12/18/22 Lakshmi Wilhelm PA-C [address] [place] [address] 29509 Physician Rheostat Assembler Urology 02/03/23 [place] [address] [place] [address] Assigned PCP 02/06/23 Alissa Perez PA-C [address] [place] [address] 33397 Physician Rheostat Assembler Surgery 09/04/23 Lakshmi Wilhelm PA-C [address] [place] [address] 27258 Physician Rheostat Assembler Urology 09/16/23 Aidee Valero PA-C [address] [place] [address]39[address] Assigned Musculoskeletal Provider 04/17/24 02/14/25 Carlos Joyner MD [address] [place] [address] Urology 01/26/25 Jadon Floyd MD [address] [place] [address] 305905 Physician Physical Medicine and Rehabilitation 01/31/25 [place] [address] [place] [address] Assigned Musculoskeletal Provider 02/15/25 Tanisha Marlow 4120 [facility] [address] 03/30/24 documented as of this encounter
--- OUTSIDE RECORDS SUMMARY | 2025-02-26 23:18 | XMS_ITS | Encounter Summary ---
Author Organization [place] Address [address] [place] [address] Care Team Providers Care Upper Shaper Name Role Phone Carlos Joyner MD Unavailable [phone] Jadon Murray MD Unavailable [phone] Maru Villagomez RN Unavailable Unavailable Ang Slade MD Unavailable +[phone] Carlos Joyner MD Unavailable +[phone] Ang Slade MD Unavailable +[phone] Lakshmi WilhelmC Unavailable +[phone] Heladio Willoughby MD Primary Care Provider [phone] Heladio Willoughby MD Unavailable Alissa Perez-C Unavailable [phone] Lakshmi Wilhelm PA-C Unavailable [phone] Aidee Valero-C Unavailable +[phone] Encounter Details Date Type Department Care Team (Latest Contact Info) Description 01/17/2025 Travel Social History Tobacco Use Types Packs/Day [...] than three times a week 07/16/2024 Attends Episcopalian Services Not on file 07/16 Active Member of Clubs or Organizations Not on f ile 07/16/2024 Attends Club or Organization Meetings Not on antelmo e 07/16/2024 Marital Status Not on file 07/16/2024 PHQ-2 Answer Date Recorded PHQ-2 Score 0 09/13/2024 [facility] - Occupational Stress Questionnaire Answer Date [...] [facility] Physical [facility] Rehabilitation Clinic [address] [phone] Jadon Floyd MD [address] [place] [address] 03/23/2025 12:[address] [facility] [address] [facility] [address] [place] [address] Cayden Bejarano MD [address] [place], [place] [address] [place] [address] 03/23/2025 1:30 PM CDT Hospital Encounter [facility] [address] [place] [address] Cayden Bejarano MD [address] [place], [place] [address]A[address] [place] [address] 03/25/2025 10:20 AM CDT Virtual Visit [facility] [place] [address] [place] [address] Cayden Bejarano MD [address] [place] [address] [address] [place] [address] 04/04/2025 12:00 PM CLIENT EVALUATOR Office Visit [facility] [place] [address] [place] [address] Sugey Mccoy, THERMOSTATIC CONTROLS SUPERVISOR [facility] [address] [place] [address] [address] [place] [address] 05/30/2025 10:20 AM CLIENT EVALUATOR Appointment [facility] Imaging [address] [facility] [address] [place] [address] Carlos Joyner MD [address] [place] [address] 086755 05/31/2025 2:00 PM CLIENT EVALUATOR Virtual Visit [facility] Urology Clinic [place] 909 [facility] 4th [place] [address] Carlos Joyner MD [address] [place] [address] 065735 07/25/2025 11:00 AM CLIENT EVALUATOR Office Visit [facility] [address] [place] [address] [place] [address] [place], [place] 7220468 documented as of this encounter Visit Diagnoses Not on filedocumented in this encounter Care Teams Upper Shaper Relationship Specialty Start [place] [address] [place] [address] PCP - General 03/05/23 Carlos Joyner MD [address] [place] [address] 99309 Urology 12/09/19 Jadon Murray MD [facility] 2530 [facility] 550 [place] [address] Referring Physician Pediatric Surgery 12/09/19 Maru Villagomez, RN Registered Nurse 12/10/19 Ang Slade MD 420 [facility] 394 [place], [place] 098015 Urology 04/24/20 Carlos Joyner MD [address] [place] [address]455 Assigned Surgical Provider 12/24/20 Ang Slade MD 420 [facility] 394 [place], [place] 887955 MD Urology 12/18/22 Lakshmi Wilhelm PA-C [address] [place] [address] 139705 Physician Sales Coordinator Urology 02/03/23 [place] [address] [place] [address] Assigned PCP 02/06/23 Alissa Perez PA-C [address] [place] [address] 592705 Physician Sales Coordinator Surgery 09/04/23 Lakshmi Wilhelm PA-C [address] [place] [address] 158385 Physician Sales Coordinator Urology 09/16/23 Aidee Valero PA-C [address] [place] [address] [place] [address] Assigned Musculoskeletal Provider 04/17/24 02/14/25 Tanisha Marlow 4120 [facility] [address] 03/30/24 documented as of this encounter
--- OUTSIDE RECORDS SUMMARY | 2025-02-26 23:18 | XMS_ITS | Encounter Summary ---
Author Organization [facility] Address [address] [place] [address] 64762 Care Team Providers Care Retail Brand Ambassador Name Role Phone Carlos Joyner MD Unavailable [phone] Jadon Murray MD Unavailable [phone] Maru Villagomez RN Unavailable Unavailable Ang Slade MD Unavailable +[phone] Carlos Joyner MD Unavailable +[phone] Ang Slade MD Unavailable +[phone] Lakshmi WilhelmC Unavailable +[phone] Heladio Willoughby MD Primary Care Provider [phone] Heladio Willoughby MD Unavailable Alissa Perez PA-C Unavailable [phone] Lakshmi Wilhelm PA-C Unavailable +[phone] Aidee Valero-C Unavailable +[phone] Carlos Joyner MD Unavailable [phone] Encounter Details Date Type Department Care Team (Latest Contact Info) Description 01/26/2025 Travel Social History Tobacco Use Types Packs/Day [...] Answer Date Recorded PHQ-2 Score 0 09/13/2024 [facility] - Occupational Stress [...] Description 03/03/2025 9:00 AM CDT Office Visit [facility] [address] [phone] Jadon Floyd MD [address] [place] [address] 446865 03/23/2025 12:45 PM CDT Appointment [facility] Imaging [address] [place] [address] [place]den [place]jar[place] [address] [place] [address] 03/23/2025 1:30 PM CDT Hospital Encounter [facility] Imaging [address] [place] [address] [place] [address] [place] [address] 03/25/2025 10:20 AM CDT Virtual Visit [facility] [place] [address] [place], [place] [address] [place] [address] Cayden [place]jarano [place] [address] [place] [address] 04/04/2025 12:00 PM GLASS LATHE OPERATOR Office Visit [facility] [place] [address] [place] [phone] Darius Elvirginia Elder, [facility] [address] [place], [place] [address]E [address] [place] [address] 05/30/2025 10:20 AM GLASS LATHE OPERATOR Appointment M [facility] Imaging [address] [facility] [address] [place] [address] Carlos Joyner MD [address] [place] [address] [phone] 05/31/2025 2:00 PM GLASS LATHE OPERATOR Virtual Visit [facility] Urology Clinic [address] 4th [place] [phone] Carlos Joyner MD [address] [place] [address] 677505 07/25/2025 11:00 AM GLASS LATHE OPERATOR Office Visit [facility] [address] [place] [address] [place] [address] [place] [address] documented as of this encounter Visit Diagnoses Not on filedocumented in this encounter Care Teams Retail Brand Ambassador Relationship Specialty Start Date End Date Heladio [place]by [place] [address] [place] [address] PCP - General 03/05/23 Carlos Joyner MD [address] [place] [address] 560205 Urology 12/09/19 Jadon Murray MD [facility] 2530 [facility] 550 [place] [address] Referring Physician Pediatric Surgery 12/09/19 Maru Villagomez, RN Registered Nurse 12/10/19 Ang Slade MD 420 [facility] 394 [place], [place] 185115 Urology 04/24/20 Carlos Joyner MD [address] [place] [address] 864745 Assigned Surgical Provider 12/24/20 Ang Slade MD [address] [place] [address] 394 [place], [place] 658335 Urology 12/18/22 Lakshmi Wilhelm PA-C [address] [place] [address] 780755 Physician Director Of Planning Urology 02/03/23 [place] [address] [place] [address] Assigned PCP 02/06/23 Alissa Perez PA-C [address] [place] [address] 225655 Physician Director Of Planning Surgery 09/04/23 Lakshmi Wilhelm PA-C [address] [place] [address] 737015 Physician Director Of Planning Urology 09/16/23 Aidee Valero PA-C 909 [place] [address] Assigned Musculoskeletal Provider 04/17/24 02/14/25 Carlos Joyner MD 9 [place], [place] 244475 Urology 01/26/25 Tanisha Marlow 4120 [facility] [place] [address] 03/30/24 documented as of this encounter
--- OUTSIDE RECORDS SUMMARY | 2025-02-26 23:18 | XMS_ITS | Encounter Summary ---
Author Organization [facility] Address [address] [place] [address] Care Team Providers Care Calculator Operator Name Role Phone Carlos Joyner MD Unavailable [phone] Jadon Murray MD Unavailable +[phone] Maru Villagomez RN Unavailable Unavailable Ang Slade MD Unavailable +[phone] Carlos Joyner MD Unavailable +[phone] Ang Slade MD Unavailable [phone] Lakshmi Wilhelm PA-C Unavailable +[phone] Heladio Willoughby MD Primary Care Provider [phone] Heladio Willoughby MD Unavailable Alissa Perez PA-C Unavailable [phone] Lakshmi Wilhelm PA-C Unavailable +[phone] Aidee Valero PA-C Unavailable +[phone] Carlos Joyner MD Unavailable +[phone] Jadon Floyd MD Unavailable +[phone] Cayden Bejarano MD Unavailable Reason for Visit * Reason Onset Date Comments Referral 01/25/2025 Encounter Details Date Type Department Care Team (Late st Contact Info) Description 01/25/2025 Telephone [facility] Physical Medicine and Rehabilitation Clinic [place] [address] [address] Unknown Referral Social History Tobacco Use Types Packs/Day Years [...] encounter Miscellaneous Notes * Telephone Encounter - Leon Serna - 01/25/2025 9:45 AM CDT [facility] Call Center Phone Message May a detailed message be left on voicemail: yes Reason for Call: Appointment Intake Referring Provider Name: Heladio Willoughby MD Diagnosis and/or Symptoms: Pressure injury of left lower back, stage 2 (H) History of pressure injury of skin Paraplegia (H) Action Taken: Other: Routed to [facility] Physical Medicine and Rehabilitation Adult [facility] Travel Screening: Not Applicable Please review and contact patient for scheduling, reasons for referral are not on scheduling guidelines documented in this encounter Plan of Treatment Upcoming Encounters Date Type Department Care Team (Late st Contact Info) Description 03/03/2025 9:00 AM CDT Office Visit [facility] Physical Medicine and Rehabilitation Clinic [address] 3rd [place] [address] Jadon Floyd MD [address] [place] [address] 03/23/2025 12:45 PM CDT Appointment [facility] [address] [place] [address] [place] [address] [place] [address] 03/23/2025 1:30 PM CDT Hospital Encounter [facility] [address] [place] [address] [place] [address] [place] [address] 03/25/2025 10:20 AM CDT Virtual Visit [facility] Sports Medicine [facility] [address] [place] [address] Drive [address] [place] [address] [place] [address] [place] [address] 04/04/2025 12:00 PM DIRECTOR ENGINEERING Office Visit [facility] Sleep [address] [phone] Sugey Mccoy, WEIGHT REDUCTION SPECIALIST [address] 277344 05/30/2025 10:20 AM DIRECTOR ENGINEERING Appointment [facility] [address] [facility] [address] [place] [address] Carlos Joyner MD [address] [place] [address] [phone] 05/31/2025 2:00 PM DIRECTOR ENGINEERING Virtual Visit [facility] Urology Clinic [address] 4th [place] [address] Carlos Joyner MD 909 [place] [address] 07/25/2025 11:00 AM DIRECTOR ENGINEERING Office Visit [facility] [address] [place] [phone] [place] [address] [place], [place] 3999168 documented as of this encounter Visit Diagnoses Not on filedocumented in this encounter Care Teams Calculator Operator Relationship Specialty [place] [address] [place] [place], [place] 7755468 PCP - General 03/05/23 Carlos Joyner MD [address] [place] [address] 796065 Urology 12/09/19 Jadon Murray MD [facility] [address] [address] Referring Physician Pediatric Surgery 12/09/19 Maru Villagomez RN Registered Nurse 12/10/19 Ang Slade MD [address] [place] [address] Urology 04/24/20 Carlos Joyner MD [address] [place] [address] Assigned Surgical Provider 12/24/20 Ang Slade MD [address] [place] [address] 394 [place], [place] 434685 Urology 12/18/22 Lakshmi Wilhelm PA-C [address] [place] [address] 008745 Physician Campaign Analyst Urology 02/03/23 [place] [address] [place], [place] 0632268 Assigned PCP 02/06/23 Alissa Perez PA-C [address] [place] [address] 394575 Physician Campaign Analyst Surgery 09/04/23 Lakshmi Wilhelm PA-C [address] [place] [address] 800625 Physician Campaign Analyst Urology 09/16/23 Aidee Valero PA-C [address] [place] [address] 714035 Assigned Musculoskeletal Provider 04/17/24 02/14/25 Carlos Joyner MD [address] [place] [address] 210785 Urology 01/26/25 Jadon Floyd MD [address] [place] [address] 237265 Physician Physical Medicine and Rehabilitation 01/31/25 [place] [address] [place] [address] Assigned Musculoskeletal Provider 02/15/25 Tanisha Marlow 4120 [facility] [address] 03/30/24 documented as of this encounter
--- OUTSIDE RECORDS SUMMARY | 2025-02-26 23:18 | XMS_ITS | Encounter Summary ---
Author Organization [facility] Address [address] [place] [address] Care Team Providers Care Retail Advertising Account Executive Name Role Phone Carlos Joyner MD Unavailable [phone] Jadon Murray MD Unavailable [phone] Maru Villagomez RN Unavailable Unavailable Ang Slade MD Unavailable [phone] Carlos Joyner MD Unavailable [phone] Ang Slade MD Unavailable [phone] Lakshmi Wilhelm-C Unavailable [phone] Heladio Willoughby MD Primary Care Provider [phone] Heladio Willoughby MD Unavailable Alissa Perez PA-C Unavailable [phone] Lakshmi Wilhelm-C Unavailable [phone] Aidee Valero PA-C Unavailable [phone] Carlos Joyner MD Unavailable +[phone] Jadon Floyd MD Unavailable [phone] Cayden Bejarano MD Unavailable Reason for Visit * Reason Onset Date Comments Forms 02/06/[address] [facility] Education Cooperative - Medication Authorization Form Encounter Details Date Type Department Care Team (Late st Contact Info) Description 02/06/2024 [facility] [address] [place] [address] [place] [address] [place] [address] Forms ([facility] Education Gut Dropper... Social History Tobacco Use Types Packs/Day Years [...] Authorization Form Who is the form from? [facility] (if other please explain) Where did/will the form come from? form was sent via [employer] When is form/letter needed by: RUPA How would you like the form/letter returned: MyChart Printed forms and placed in provider's basket for review and signature Kasia Gutierrez Lead Vehicle Damage Appraiser [facility] documented in this encounter Plan of Treatment Upcoming Encounters Date Type Department Care Team (Late st Contact Info) Description 03/03/2025 9:00 AM CDT Office Visit [facility] Physical Medicine and Rehabilitation Clinic [address] [phone] Jadon Floyd MD [address] [place] [address] 03/23/2025 12:45 PM CDT Appointment [facility] [address] [facility] [address] [place] [address] Cayden Bejarano [place] [address] [place] [address] 03/23/2025 1:30 PM CDT Hospital Encounter [facility] [address] [place] [address] [place] [address] [place] [address] 03/25/2025 10:20 AM CDT Virtual Visit [facility] [place] [address] [place] [address] [place] [address] [place] [address] 04/04/2025 12:00 PM SAP BW BI DEVELOPER Office Visit [facility] [place] [address] [place] [address] Sugey Mccoy, [facility] [address] [place] [address] 05/30/2025 10:20 AM SAP BW BI DEVELOPER Appointment M [facility] Imaging [address] [place] [address] Carlos Joyner MD [address] [place] [address] [phone] 05/31/2025 2:00 PM SAP BW BI DEVELOPER Virtual Visit [facility] Urology Clinic [address] 4th [place] [address] Carlos Joyner MD [address] [place] [address] 958215 07/25/2025 11:00 AM SAP BW BI DEVELOPER Office Visit [facility] [address] [place] [address] [place] [address] [place] [address] documented as of this encounter Visit Diagnoses Not on filedocumented in this encounter Care Teams Retail Advertising Account Executive Relationship Specialty Start Date End [place] Heladio [place] [address] [place] [address] PCP - General 03/05/23 Carlos Joyner MD [address] [place] [address] 650295 Urology 12/09/19 Jadon Murray MD [facility] 2530 [facility] 550 [place] [address] Referring Physician Pediatric Surgery 12/09/19 Maru Villagomez, RN Registered Nurse 12/10/19 Ang Slade MD 420 [facility] 394 [place], [place] 581045 MD Urology 04/24/20 Carlos Joyner MD [address] [place] [address] 715465 Assigned Surgical Provider 12/24/20 Ang Slade MD 420 [facility] 394 [place], [place] 106075 MD Urology 12/18/22 Lakshmi Wilhelm PA-C [address] [place] [address] 827785 Physician Sports Announcer Urology 02/03/23 [place] [address] [place] [address] Assigned PCP 02/06/23 Alissa Perez PA-C [address] [place] [address] 337065 Physician Sports Announcer Surgery 09/04/23 Lakshmi Wilhelm PA-C [address] [place] [address] Physician Sports Announcer Urology 09/16/23 Aidee Valero PA-C 9 [place] [address] Assigned Musculoskeletal Provider 04/17/24 02/14/25 Carlos Joyner MD [address] [place] [address] Urology 01/26/25 Jadon Floyd MD [address] [place] [address] Physician Physical Medicine and Rehabilitation 01/31/25 [place] [address] [place] [address] Assigned Musculoskeletal Provider 02/15/25 Tanisha Marlow [facility] [place] [address] 03/30/24 documented as of this encounter
--- OUTSIDE RECORDS SUMMARY | 2025-02-26 23:18 | XMS_ITS | Encounter Summary ---
Author Organization [facility] Address [address] [place] [address] Care Team Providers Care Mergers And Acquisitions Associate Name Role Phone Carlos Joyner MD Unavailable [phone] Jadon Murray MD Unavailable [phone] Maru Villagomez RN Unavailable Unavailable Ang Slade MD Unavailable [phone] Carlos Joyner MD Unavailable [phone] Ang Slade MD Unavailable [phone] Lakshmi WilhelmC Unavailable [phone] Heladio Willoughby MD Primary Care Provider [phone] Heladio Willoughby MD Unavailable Alissa Perez-C Unavailable [phone] Lakshmi Wilhelm PA-C Unavailable [phone] Aidee Valero-C Unavailable [phone] Encounter Details Date Type Department Care Team (Latest Contact Info) Description 01/18/2025 Travel Social History Tobacco Use Types Packs/Day [...] Date Recorded PHQ-2 Score 0 09/13/2024 [facility] [...] Description 03/03/2025 9:00 AM CDT Office Visit [facility] Physical Medicine and Rehabilitation Clinic [address] [phone] Jadon Floyd MD [address] [place] [address] 03/23/2025 12:45 PM CDT Appointment [facility] [address] [facility] [address] [place] [address] Cayden Bejarano MD [address] [place], [place] [address]A[address] [place] [address] 03/23/2025 1:30 PM CDT Hospital Encounter [facility] Imaging [address] [place] [address] Cayden Bejarano MD [address] [place], [place] [address]A[address] [place] [address] 03/25/2025 10:20 AM CDT Virtual Visit [facility] Medicine [facility] [place] [address] [place] [address] Cayden Bejarano MD [address] [place] [address] [address] [place] [address] 04/04/2025 12:00 PM SUPERVISOR CUTTING AND BONING Office Visit [facility] [place] [address] [place] [address] Sugey Mccoy, PURCHASING INTERNSHIP [facility] [address] [place] [address] [address] [place] [address] 05/30/2025 10:20 AM SUPERVISOR CUTTING AND BONING Appointment [facility] [address] [facility] [address] [place] [address] Carlos Joyner MD [address] [place] [address] 007705 05/31/2025 2:00 PM SUPERVISOR CUTTING AND BONING Virtual Visit [facility] Urology Clinic [place] 909 [facility] 4th [place] [address] Carlos Joyner MD [address] [place] [address] 217575 07/25/2025 11:00 AM SUPERVISOR CUTTING AND BONING Office Visit [facility] [address] [place] [address] [place] [address] [place], [place] 7386968 documented as of this encounter Visit Diagnoses Not on filedocumented in this encounter Care Teams Mergers And Acquisitions Associate Relationship Specialty [place] [address] [place] [address] PCP - General 03/05/23 Carlos Joyner MD [address] [place] [address] Urology 12/09/19 Jadon Murray MD [facility] 2530 [facility] 550 [place] [address] Referring Physician Pediatric Surgery 12/09/19 Maru Villagomez, RN Registered Nurse 12/10/19 Ang Slade MD 420 [facility] 394 [place], [place] 856845 Urology 04/24/20 Carlos Joyner MD [address] [place] [address] Assigned Surgical Provider 12/24/20 Ang Slade MD 420 [facility] 394 [place], [place] 503605 MD Urology 12/18/22 Lakshmi Wilhelm PA-C [address] [place] [address] 332525 Physician Administrative Support Coordinator Urology 02/03/23 [place] [address] [place] [address] Assigned PCP 02/06/23 Alissa Perez PA-C [address] [place] [address] 696955 Physician Administrative Support Coordinator Surgery 09/04/23 Lakshmi Wilhelm PA-C [address] [place] [address] 976935 Physician Administrative Support Coordinator Urology 09/16/23 Aidee Valero PA-C [address] [place] [address] [place] [address] Assigned Musculoskeletal Provider 04/17/24 02/14/25 Tanisha Marlow 4120 [facility] [address] 03/30/24 documented as of this encounter
--- OUTSIDE RECORDS SUMMARY | 2025-02-26 23:18 | XMS_ITS | Encounter Summary ---
Author Organization [facility] Address [address] [place] [address] Care Team Providers Care Filter Changing Technician Name Role Phone Carlos Joyner MD Unavailable [phone] Jadon Murray MD Unavailable [phone] Maru Villagomez RN Unavailable Unavailable Ang Slade MD Unavailable +[phone] Carlos Joyner MD Unavailable +[phone] Ang Slade MD Unavailable [phone] Lakshmi Wilhelm-C Unavailable [phone] Heladio Willoughby MD Primary Care Provider [phone] Heladio Willoughby MD Unavailable Alissa Perez PA-C Unavailable [phone] CoLakshmi morales-C Unavailable [phone] Aidee Valero PA-C Unavailable [phone] Carlos Joyner MD Unavailable +[phone] Jadon Floyd MD Unavailable [phone] Encounter Details Date Type Department Care Team (Latest Contact Info) Description 02/01/2025 Travel Social History Tobacco Use Types Packs/Day [...] Date Recorded PHQ-2 Score 0 09/13/2024 [facility] Occupat ional Health - Occupational [...] [facility] [address] [phone] Jadon Floyd MD [address] [place] [address] 03/23/2025 12:45 PM CDT Appointment [facility] [address] [facility] [address] [place] [address]15 [place] [address] [facility] [address] [address] [place] [address] 03/23/2025 1:30 PM CDT Hospital Encounter [facility] Imaging [address] [place] [address] [place] [address] [facility] [address] [address] [place] [address] 03/25/2025 10:20 AM CDT Virtual Visit [facility] [place] [address] [place], [place] [address] [place] [address] [place]den [place] [phone] [place] [address] [address]ANC[address] 300 [place] [address] 04/04/2025 12:00 PM BUSINESS SOLUTION ANALYST Office Visit [facility] [place] [address] [place] [address] DariusElvirginia Elder, ENVIRONMENTAL OFFICER [facility] [address] [place], [place] 188984 05/30/2025 10:20 AM BUSINESS SOLUTION ANALYST Appointment [facility] Imaging [address] [place] [phone] Carlos Joyner MD [address] [place] [address] 502505 05/31/2025 2:00 PM BUSINESS SOLUTION ANALYST Virtual Visit [facility] [place] 909 [facility] 4th [place] [address] Carlos Joyner MD [address] [place] [address] [phone] 07/25/2025 11:00 AM BUSINESS SOLUTION ANALYST Office Visit [facility] [address] [place] [address] [place] [address] [place] [address] documented as of this encounter Visit Diagnoses Not on filedocumented in this encounter Care Teams Filter Changing Technician Relationship Specialty Start Date End Date Heladio [place] [address] [place] [address] PCP - General 03/05/23 Carlos Joyner MD [address] [place] [address] [phone] Urology 12/09/19 Jadon Murray MD [facility] [address] [facility] 550 [place] [address] Referring Physician Pediatric Surgery 12/09/19 Maru Villagomez, RN Registered Nurse 12/10/19 Ang Slade MD [address] [place] [address] 394 [place] [address] Urology 04/24/20 Carlos Joyner MD [address] [place] [address] 021745 Assigned Surgical Provider 12/24/20 Ang Slade MD [address] [place] [address] 394 [place] [address] Urology 12/18/22 Lakshmi Wilhelm PA-C [address] [place] [address] 825575 Physician Pig Sticker Urology 02/03/23 [place] [address] [place] [address] Assigned PCP 02/06/23 Alissa Perez PA-C [address] [place] [address] 311295 Physician Pig Sticker Surgery 09/04/23 Lakshmi Wilhelm PA-C [address] [place] [address] 144935 Physician Pig Sticker Urology 09/16/23 Aidee Valero PA-C [address] [place] [address] 046405 Assigned Musculoskeletal Provider 04/17/24 02/14/25 Carlos Joyner MD [address] [place] [address] 925955 Urology 01/26/25 Jadon Floyd MD [address] [place] [address] 371005 Physician Physical Medicine and Rehabilitation 01/31/25 Tanisha Marlow 4120 [facility] [address] 03/30/24 documented as of this encounter
--- OUTSIDE RECORDS SUMMARY | 2025-02-26 23:19 | XMS_ITS | Encounter Summary ---
Author Organization [facility] Address [address] [place] [address] Care Team Providers Care Clay Molder Name Role Phone Carlos Joyner MD Unavailable + [phone] Jadon Murray MD Unavailable +[phone] Maru Villagomez RN Unavailable Unavailable Ignacia Duran MD Primary Care Provider +[phone] Carlos Joyner MD Unavailable + [phone] Ang Slade MD Unavailable +[phone] Ang Slade MD Unavailable [phone] Carlos Joyner MD Unavailable + [phone] Annalise Orta PA-C Unavailable +[phone] Ang Slade MD Unavailable +[phone] Lakshmi Wilhelm-C Unavailable +[phone] Heladio Willoughby MD Primary Care Provider +[phone] Heladio Willoughby MD Unavailable Alissa Perez PA-C Unavailable [phone] Lakshmi Wilhelm-C Unavailable +[phone] Aidee Valero PA-C Unavailable +[phone] Carlos Joyner MD Unavailable +[phone] Jadon Floyd MD Unavailable +[phone] Cayden Bejarano MD Unavailable Reason for Visit * Reason Comments Orders Encounter Details Date Type Department Care Team (Late st Contact Info) Description 02/02/2020 Orders Only [facility] for Prostate and Urologic Cancers [address] [place] [address] 4th [place] [phone] Maru Villagomez RN Social History Tobacco Use Types Packs/Day [...] Center [facility] [address] 3rd [place] [address] Jadon Floyd MD [address] [place] [address] 03/23/2025 12:45 PM CDT Appointment [facility] [address] [facility] [address] [place] [phone] [place] [address] [place] [address] 03/23/2025 1:30 PM CDT Hospital Encounter [facility] [address] [place] [address] [place] [address] [place] [address] 03/25/2025 10:20 AM CDT Virtual Visit [facility] Medicine [facility] [place] [address] [facility] [address] [place] [address] [place] [address] [place] [address] 04/04/2025 12:00 PM PLASTER WHITTLER Office Visit [facility] [place] [address] [place] [address] Sugey Mccoy, HYPERION ADMINISTRATOR [facility] [address] [place] [address] [address] [place] [address] 05/30/2025 10:20 AM PLASTER WHITTLER Appointment [facility] [address] [facility] [address] [place] [address] Carlos Joyner MD [address] [place] [address] 969425 05/31/2025 2:00 PM PLASTER WHITTLER Virtual Visit [facility] [place] [address] [place] [address] 4th [place] [address] Carlos Joyner MD [address] [place] [address] 306955 07/25/2025 11:00 AM PLASTER WHITTLER Office Visit [place] [address] [place] [address] [place] [address] [place] [address] documented as of this encounter Visit Diagnoses Not on filedocumented in this encounter Additional Health Concerns Infection Onset Date Last Indicated Resolved Time MRSA Comment:Added from external infection. Pt has had Staph infections but never MRSA from Care everywhere chart review. Removing MRSA 9.14.06/17/2019 02/06/2023 9:41 AM C DT documented as of this encounter Care Teams Clay Molder Relationship Specialty Start Date End Date Ignacia Duran MD PCP - General Pediatrics 01/20/20 03/04/23 [place] [address] [place] [address] PCP - General 03/05/23 Carlos Joyner MD [address] [place] [address] 11763 Urology 12/09/19 Jadon Murray MD [facility] 2530 [facility] 550 [place], [place] [phone] Referring Physician Pediatric Surgery 12/09/19 Maru Villagomez, OTILIO Registered Nurse 12/10/19 Carlos Joyner MD [address] [place] [address] 233835 Assigned Surgical Provider 03/17/20 08/12/20 Ang Slade MD 420 [facility] 394 [place], [place] 951115 Urology 04/24/20 Ang Slade MD 420 [facility] 394 [place] [address] Assigned Surgical Provider 08/13/20 12/23/20 Carlos Joyner MD [address] [place] [address] 44781 Assigned Surgical Provider 12/24/20 Annalise Orta PA-C 5200 [place] [address] Assigned Cancer Care Provider 05/13/21 11/01/22 Ang Slade MD [address] [place] [address] 938655 Urology 12/18/22 Lakshmi Wilhelm PA-C [address] [place] [address] 944225 Physician Physician Coding Specialist Urology 02/03/23 [place] [address] [place] [address] Assigned PCP 02/06/23 Alissa Perez PA-C [address] [place] [address] 911245 Physician Physician Coding Specialist Surgery 09/04/23 Lakshmi Wilhelm PA-C [address] [place] [address] 97595 Physician Physician Coding Specialist Urology 09/16/23 Aidee Valero PA-C [address] [place] [address]8830 Assigned Musculoskeletal Provider 04/17/24 02/14/25 Carlos Joyner MD [address] [place] [address] 88387 Urology 01/26/25 Jadon Floyd MD 909 [place] [address] Physician Physical Medicine and Rehabilitation 01/31/25 [place] [address] [place] [address] Assigned Musculoskeletal Provider 02/15/25 Tanisha Marlow 4120 [facility] [address] 03/30/24 documented as of this encounter
--- OUTSIDE RECORDS SUMMARY | 2025-02-26 23:19 | XMS_ITS | Encounter Summary ---
Author Organization [facility] Address [address] [place] [address] Care Team Providers Care Customer Experience Retail Clerk Name Role Phone Carlos Joyner MD Unavailable [phone] Jadon Murray MD Unavailable +[phone] Maru Villagomez RN Unavailable Unavailable Ignacia Duran MD Primary Care Provider [phone] Ang Slade MD Unavailable +[phone] Carlos Joyner MD Unavailable +[phone] Annalise Orta PA-C Unavailable +[phone] Ang Slade MD Unavailable +[phone] Lakshmi Wilhelm-C Unavailable +[phone] Heladio Willoughby MD Primary Care Provider [phone] Heladio Willoughby MD Unavailable Alissa Perez PA-C Unavailable [phone] LaLakshmi morales-C Unavailable +[phone] Aidee Valero PA-C Unavailable +[phone] Carlos Joyner MD Unavailable +[phone] Jadon Floyd MD Unavailable [phone] Cayden Bejarano MD Unavailable Encounter Details Date Type Department Care Team (Late st Contact Info) Description 07/31/2021 MyC Medical Advice [facility] Preoperative Assessment Center [address] 5th [place] [phone] Makenzie Drummond RN Social History Tobacco Use Types Packs/Day [...] Encounters Date Type Department Care Team (Late Contact Info) Description 03/03/2025 9:00 AM CDT Office Visit [facility] Physical Medicine and Rehabilitation Clinic [address] 3rd [place] [phone] Jadon lFoyd MD [address] [place] [address] 03/23/2025 12:45 PM CDT Appointment [facility] [address] [facility] [address] [place] [address] [place] [address] [place] [address] [address] [place] [address] 03/23/2025 1:30 PM CDT Hospital Encounter [facility] [address] [place] [address] [place] [address] [facility] [address] [place] [address] 03/25/2025 10:20 AM CDT Virtual Visit [facility] [place] [address] [place], [place] [address] [place] [address] [place] [address] [place] [address] [address] [place] [address] 04/04/2025 12:00 PM ESCROW SECRETARY Office Visit [facility] [place] [address] [place] [address] Sugey Mccoy, NESTOR [place] [address] [place], [place] [address]E [address] [place] [address] 05/30/2025 10:20 AM ESCROW SECRETARY Appointment [facility] [address] [place] [address] Carlos Joyner MD [address] [place] [address] 05/31/2025 2:00 PM ESCROW SECRETARY Virtual Visit [facility] Urology [facility] [place] 909 [facility] 4th [place] [address] Carlos Joyner MD [address] [place] [address] [phone] 07/25/2025 11:00 AM ESCROW SECRETARY Office Visit [address] [address] Heladio Willoughby MD [address] [place] [address] documented as of this encounter Visit Diagnoses Not on filedocumented in this encounter Additional Health Concerns Infection Onset Date Last Indicated Resolved Time MRSA Comment:Added from external infection. Pt has had Staph infections but never MRSA from Care everywhere chart review. Removing MRSA .14.23 06/17/2019 02/06/2023 9:41 AM C DT documented as of this encounter Care Teams Customer Experience Retail Clerk Relationship Specialty Start Date End Date Ignacia Duran MD PCP - General Pediatrics 01/20/20 03/04/23 [place] [address] [facility] [address] PCP - General 03/05/23 Carlos Joyner MD [address] [place] [address] Urology 12/09/19 Jadon Murray MD [facility] [address] [address] Referring Physician Pediatric Surgery 12/09/19 Maru Villagomez, OTILIO Registered Nurse 12/10/19 Ang Slade MD [address] [place] [address] 9[address] Urology 04/24/20 Carlos Joyner MD [address] [place] [address]695 Assigned Surgical Provider 12/24/20 Annalise Orta PA-C 5200 [place] [address] Assigned Cancer Care Provider 05/13/21 11/01/22 Ang Slade MD [address] [place] [address] 119895 Urology 12/18/22 Lakshmi Wilhelm PA-C [address] [place] [address] 623645 Physician Computer Systems Design Analyst Urology 02/03/23 [place] [address] [address] [place] [address] Assigned PCP 02/06/23 Alissa Perez PA-C [address] [place] [address] 965285 Physician Computer Systems Design Analyst Surgery 09/04/23 Lakshmi Wilhelm PA-C [address] [place] [address] 483275 Physician Computer Systems Design Analyst Urology 09/16/23 Aidee Valero PA-C [address] [place] [address] 702875 Assigned Musculoskeletal Provider 04/17/24 02/14/25 Carlos Joyner MD [address] [place] [address] 046805 Urology 01/26/25 Jadon Floyd MD [address] [place] [address] 069985 Physician Physical Medicine and Rehabilitation 01/31/25 [place] [address] [place] [address] Assigned Musculoskeletal Provider 02/15/25 Tanisha Marlow 4120 [facility] [address] 03/30/24 documented as of this encounter
--- OUTSIDE RECORDS SUMMARY | 2025-02-26 23:19 | XMS_ITS | Encounter Summary ---
Author Organization [facility] Address [address] [place] [address] Care Team Providers Care Global Ceo Name Role Phone Carlos Joyner MD Unavailable [phone] Jadon Murray MD Unavailable [phone] Maru Villagomez RN Unavailable Unavailable Ignacia Duran MD Primary Care Provider [phone] Ang Slade MD Unavailable +[phone] Carlos Joyner MD Unavailable +[phone] Annalise Orta PA-C Unavailable +[phone] Ang Slade MD Unavailable +[phone] Lakshmi Wilhelm-C Unavailable +[phone] Heladio Willoughby MD Primary Care Provider [phone] Heladio Willoughby MD Unavailable Alissa Perez PA-C Unavailable [phone] LaLakshmi morales-C Unavailable +[phone] Aidee Valero PA-C Unavailable +[phone] Carlos Joyner MD Unavailable +[phone] Jadon Floyd MD Unavailable [phone] Cayden Bejarano MD Unavailable Encounter Details Date Type Department Care Team (Late st Contact Info) Description 06/19/2021 MyC Medical Advice [facility] Urology Clinic [address] 4th [place] [address] Jenna Mcfadden RN Social History Tobacco Use Types Packs/Day [...] COVID-19? No / Unsure 06/19/2021 11:16 AM TRAVEL ATTENDANTS documented as of this encounter Plan of Treatment Upcoming Encounters Date Type Department Care Team ([facility] Contact Info) Description 03/03/2025 9:00 AM CDT Office Visit [facility] Physical Medicine and Rehabilitation Clinic [address] 3rd [place] [address] Jadon Floyd MD [address] [place] [address] 03/23/2025 12:45 PM CDT Appointment [facility] [address] [place] [address] [place] [phone] [place] [address] [place] [address] 03/23/2025 1:30 PM CDT Hospital Encounter [facility] [address] [facility] [address] [place] [address] [place] [address] [facility] [address] [place] [address] 03/25/2025 10:20 AM CDT Virtual Visit [facility] Sports Medicine Clinic [place] [address] [place] [address] [address] [place] [address] [place] [address] [place] [address] 04/04/2025 12:00 PM TRAVEL ATTENDANTS Office Visit [facility] [place] [address] [place] [address] Sugey Mccoy, NEGATIVE CHECKER [facility] 606 [facility] [address] [place] [address] 05/30/2025 10:20 AM TRAVEL ATTENDANTS Appointment [facility] [address] [facility] [address] [place] [address] Carlos Joyner MD [address] [place] [address] 868525 05/31/2025 2:00 PM TRAVEL ATTENDANTS Virtual Visit [facility]rology Clinic [place] 909 [facility] 4th [place] [phone] Carlos Joyner MD [address] [place] [address] 779145 07/25/2025 11:00 AM TRAVEL ATTENDANTS Office Visit [facility] [address] [place] [address] [place] [address] [place] [address] documented as of this encounter Visit Diagnoses Not on filedocumented in this encounter Additional Health Concerns Infection Onset Date Last Indicated Resolved Time MRSA Comment:Added from external infection. Pt has had Staph infections but never MRSA from Care everywhere chart review. Removing MRSA 9.14.23 06/17/2019 02/06/2023 9:41 AM C DT documented as of this encounter Care Teams Global Ceo Relationship Specialty Start Date End Date Ignacia Duran MD PCP - General Pediatrics 01/20/20 03/04/23 [place] [address] [facility] [place] [address] PCP - General 03/05/23 Carlos Joyner MD [address] [place] [address] 10068 Urology 12/09/19 Jadon Murray MD [facility] [address] [facility] 550 [place] [address] Referring Physician Pediatric Surgery 12/09/19 Maru Villagomez, RN Registered Nurse 12/10/19 Ang Slade MD [address] 019375 Urology 04/24/20 Carlos Jyoner MD [address] [place] [address] 766155 Assigned Surgical Provider 12/24/20 Annalise Orta PA-C 5200 [place] [address] Assigned Cancer Care Provider 05/13/21 11/01/22 Ang Slade MD [address] [address] Urology 12/18/22 Lakshmi Wilhelm PA-C [address] [place] [address] 86891 Physician Machine Puller Over Urology 02/03/23 [place] [address] [place] [address] Assigned PCP 02/06/23 Alissa Perez PA-C [address] [place] [address] Physician Machine Puller Over Surgery 09/04/23 Lakshmi Wilhelm PA-C [address] [place] [address] 91129 Physician Machine Puller Over Urology 09/16/23 Aidee Valero PA-C [address] [place] [address] Assigned Musculoskeletal Provider 04/17/24 02/14/25 Carlos Joyner MD [address] [place] [address] 06917 Urology 01/26/25 Jadon Floyd MD [address] [place] [address]57 Physician Physical Medicine and Rehabilitation 01/31/25 [place] [address] [place] [address] Assigned Musculoskeletal Provider 02/15/25 Tanisha Marlow 4120 [facility] [address] 03/30/24 documented as of this encounter
--- OUTSIDE RECORDS SUMMARY | 2025-02-26 23:19 | XMS_ITS | Encounter Summary ---
Author Organization [facility] Address [address] [place] [address] Care Team Providers Care Attraction Worker Name Role Phone Carlos Joyner MD Unavailable +[phone] Jadon Murray MD Unavailable +[phone] Maru Villagomez RN Unavailable Unavailable Ang Slade MD Unavailable +[phone] Carlos Joyner MD Unavailable +[phone] Ang Slade MD Unavailable [phone] Lakshmi Wilhelm-C Unavailable +[phone] Heladio Willoughby MD Primary Care Provider +[phone] Heladio Willoughby MD Unavailable Alissa Perez PA-C Unavailable [phone] Lakshmi Wilhelm-C Unavailable +[phone] Aidee Valero PA-C Unavailable +[phone] Carlos Joyner MD Unavailable +[phone] Jadon Floyd MD Unavailable [phone] Cayden Bejarano MD Unavailable Encounter Details Date Type Department Care Team (Late st Contact Info) Description 05/05/2023 [facility] U[facility] Clinic [place] [address] [facility] 4th [place] [address] Rosita Velasco, RN Social History [...] Medical Center Physical Medicine and Rehabilitation Clinic [address] [address] Jadon Floyd MD [address] [place] [address] 856415 03/23/2025 12:45 PM CDT Appointment [facility] [address] [facility] [address] [place] [address] [place] [address] [place] [address] 03/23/2025 1:30 PM CDT Hospital Encounter [facility] [address] [facility] [address] [place] [address] [place] [address] [place] [address] [address] [place] [address] 03/25/2025 10:20 AM CDT Virtual Visit [facility] Sports Medicine [facility] [address] [place] [address] [address] [place] [address] [place] [address] [place] [address] 04/04/2025 12:00 PM TELETRAY OPERATOR Office Visit [facility] Sleep [address] [phone] Sugey Mccoy, NESTOR [address] [address] 05/30/2025 10:20 AM TELETRAY OPERATOR Appointment [facility] [address] [facility] [address] [place] [address] Carlos Joyner MD [address] [place] [address] 093695 05/31/2025 2:00 PM TELETRAY OPERATOR Virtual Visit [facility] Urology Clinic [address] 4th [place] [address] Carlos Joyner MD [address] [place] [address] 07/25/2025 11:00 AM TELETRAY OPERATOR Office [facility] [place] [address] [address] [phone] [place] [address] [address] [place] [phone] documented as of this encounter Visit Diagnoses Not on filedocumented in this encounter Care Teams Attraction Worker Relationship Specialty Start [place] [address] [address] [id number] PCP - General 03/05/23 Carlos Joyner MD [address] [place] [address] 9[address] Urology 12/09/19 Jadon Murray MD [facility] 2530 [facility] 550 [place] [address] Referring Physician Pediatric Surgery 12/09/19 Maru Villagomez, RN Registered Nurse 12/10/19 Ang Slade MD [address] [place] [address] Urology 04/24/20 Carlos Joyner MD [address] [place] [address]13 Assigned Surgical Provider 12/24/20 Ang Slade MD [address] [place] [address] Urology 12/18/22 Lakshmi Wilhelm PA-C [address] [place] [address] 67090 Physician Nutrition Services Assistant Urology 02/03/23 [place] [address] [place] [address] Assigned PCP 02/06/23 Alissa Perez PA-C [address] [place] [address] 60384 Physician Nutrition Services Assistant Surgery 09/04/23 Lakshmi Wilhelm PA-C [address] [place] [address] 17816 Physician Nutrition Services Assistant Urology 09/16/23 Aidee Valero PA-C [address] [place] [address] 700955 Assigned Musculoskeletal Provider 04/17/24 02/14/25 Carlos Joyner MD [address] [place] [address] 077955 Urology 01/26/25 Jadon Floyd MD [address] [place] [address] Physician Physical Medicine and Rehabilitation 01/31/25 [place] [address] [place] [address] Assigned Musculoskeletal Provider 02/15/25 Tanisha Marlow [facility]0 [facility] [address] 03/30/24 documented as of this encounter
--- OUTSIDE RECORDS SUMMARY | 2025-02-26 23:19 | XMS_ITS | Encounter Summary ---
Author Organization [place] Address [address] [place] [address] Care Team Providers Care Support Specialist Name Role Phone Carlos Joyner MD Unavailable [phone] Jadon Murray MD Unavailable +[phone] Maru Villagomez RN Unavailable Unavailable Ang Slade MD Unavailable +[phone] Carlos Joyner MD Unavailable +[phone] Ang Slade MD Unavailable +[phone] Lakshmi Wilhelm-C Unavailable +[phone] Heladio Willoughby MD Primary Care Provider [phone] Heladio Willoughby MD Unavailable Alissa Perez PA-C Unavailable [phone] Lakshmi Wilhelm-C Unavailable +[phone] Aidee Valero PA-C Unavailable +[phone] Carlos Joyner MD Unavailable +[phone] Encounter Details Date Type Department Care Team (Late st Contact Info) Description 01/28/2025 [facility] Physical Medicine and Rehabilitation Clinic [address] 3rd [place] [address] Unknown, Doctor, Social History Tobacco Use Types Packs/Day Years [...] than three times a week 07/16/2024 Attends Mormonism Services Not on file 07/16 Active Member of Clubs or Organizations Not on f ile 07/16/2024 Attends Club or Organization Meetings Not on antelmo e 07/16/2024 Marital Status Not on file 07/16/2024 PHQ-2 Answer Date Recorded PHQ-2 Score 0 09/13/2024 [facility] [place] of Occupat ional Health - Occupational Stress [...] encounter Miscellaneous Notes * Telephone Encounter - Enedelia Porter - 01/28/2025 9:14 AM CDT Left Voicemail (1st Attempt) and Sent Mychart (1st Attempt) for the patient to call back and schedule the following: Appointment type: New PM&R Provider: Dr. Floyd Return date: next available Specialty phone number: [phone] Additional appointment(s) needed: NA Additonal Notes: documented in this encounter Plan of Treatment Upcoming Encounters Date Type Department Care Team (Late st Contact Info) Description 03/03/2025 9:00 AM CDT Office Visit [facility] Physical Medicine and Rehabilitation Clinic [address] [address] Jadon Floyd MD [address] [place] [address] [phone] 03/23/2025 12:[address] [facility] [address] [facility] [address] [place] [address] [place] [address] [place] [address] 03/23/2025 1:30 PM CDT Hospital Encounter [facility] Imaging [address] [facility] [address] [place] [address] [place] [address] [place] [address] 03/25/2025 10:20 AM CDT Virtual Visit [facility] Sports Medicine [facility] [address] [place] [address] [place] [address] [place] [address] 04/04/2025 12:00 PM MANAGER OF CORPORATE Office Visit [facility] Sleep [address] [phone] Sugey Mccoy, LANE ATTENDANT [address] [place] [address] 05/30/2025 10:20 AM MANAGER OF CORPORATE Appointment [facility] [address] [facility] [address] [place] [address] Carlos Joyner MD [address] [place] [address] 05/31/2025 2:00 PM MANAGER OF CORPORATE Virtual Visit [facility] Urology [address] 4th [place] [address] Carlos Joyner MD [address] [place] [address] 07/25/2025 11:00 AM MANAGER OF CORPORATE Office Visit [address] [address] [place] [address] [place] [address] documented as of this encounter Visit Diagnoses Not on filedocumented in this encounter Care Teams Support Specialist Relationship Specialty Start [place] [address] [address] [place] [phone] PCP - General 03/05/23 Carlos Joyner MD [address] [place] [address] 367625 Urology 12/09/19 Jadon Murray MD [facility] [address] [place] [address] [phone] Referring Physician Pediatric Surgery 12/09/19 Maru Villagomez, RN Registered Nurse 12/10/19 Ang Slade MD [address] [place] [address] 115905 Urology 04/24/20 Carlos Joyner MD [address] [place] [address] 174825 Assigned Surgical Provider 12/24/20 Ang Slade MD [address] [place] [address] 33480 Urology 12/18/22 Lakshmi Wilhelm PA-C [address] [place] [address] 847875 Physician Staff Readiness Officer Urology 02/03/23 [place] [address] [place] [address] Assigned PCP 02/06/23 Alissa Perez PA-C [address] [place] [address] 446885 Physician Staff Readiness Officer Surgery 09/04/23 Lakshmi Wilhelm PA-C [address] [place] [address] 877575 Physician Staff Readiness Officer Urology 09/16/23 Aidee Valero PA-C [address] [place] [address] 866465 Assigned Musculoskeletal Provider 04/17/24 02/14/25 Carlos Joyner MD [address] [place] [address] 338195 Urology 01/26/25 Tanisha Marlow 4120 [facility] [address] 03/30/24 documented as of this encounter
--- OUTSIDE RECORDS SUMMARY | 2025-02-26 23:19 | XMS_ITS | Encounter Summary ---
Author Organization [place] Address [address] [place] [address]47 Care Team Providers Care Area Loss Prevention Manager Name Role Phone Carlos Joyner MD Unavailable +[phone] Jadon Murray MD Unavailable +[phone] Maru Villagomez RN Unavailable Unavailable Ignacia uDran MD Primary Care Provider [phone] Agn Slade MD Unavailable +[phone] Carlos Joyner MD Unavailable +[phone] Annalise Orta PA-C Unavailable +[phone] Ang Slade MD Unavailable +[phone] Lakshmi Wilhelm-C Unavailable +[phone] Heladio Willoughby MD Primary Care Provider +[phone] Heladio Willoughby MD Unavailable Alissa Perez PA-C Unavailable [phone] LaLakshmi morales-C Unavailable +[phone] Aidee Valero PA-C Unavailable +[phone] Carlos Joyner MD Unavailable +[phone] Jadon Floyd MD Unavailable [phone] Cayden Bejarano MD Unavailable Encounter Details Date Type Department Care Team (Late st Contact Info) Description 07/19/2021 MyC Medical Advice [facility] Orthopedic [facility] [address]th [place] [address] Shyann Rehman Social History Tobacco Use Types [...] No / Unsure 06/19/2021 11:16 AM MEDICAL HOUSEKEEPER documented as of this encounter Plan of Treatment Upcoming Encounters Date Type Department Care Team (Late Contact Info) Description 03/03/2025 9:00 AM CDT Office Visit [facility] Physical Medicine and Rehabilitation Clinic [address] [phone] Jadon Floyd MD [address] [place] [address] 03/23/2025 12:45 PM CDT Appointment [facility] [address] [place] [address] [address] [place] [address] [place] [address] [facility] [address] [place] [address] 03/23/2025 1:30 PM CDT Hospital Encounter [facility] [address] [facility] [address] [place] [address] [place] [address] [facility] [address] [place] [address] 03/25/2025 10:20 AM CDT Virtual Visit [facility] Medicine [facility] [place] [address] [place] [address] [address] [place] [address] [place] [address] [place] [address] 04/04/2025 12:00 PM MEDICAL HOUSEKEEPER Office Visit [facility] [place] [address] [place] [address] Sugey Mccoy, LATHE SET UP OPERATOR [facility] [address] [place], [place] [address]E [address] [place] [address] 05/30/2025 10:20 AM MEDICAL HOUSEKEEPER Appointment [facility] [address] [facility] [address] [place] [address] Carlos Joyner MD [address] [place] [address] 428875 05/31/2025 2:00 PM MEDICAL HOUSEKEEPER Virtual Visit [facility] [place] 909 [facility] 4th [place] [address] Carlos Joyner MD [address] [place] [address] 094025 07/25/2025 11:00 AM MEDICAL HOUSEKEEPER Office [facility] [address] [place] [address] [place] [address] [place] [address] documented as of this encounter Visit Diagnoses Not on filedocumented in this encounter Additional Health Concerns Infection Onset Date Last Indicated Resolved Time MRSA Comment:Added from external infection. Pt has had Staph infections but never MRSA from Care everywhere chart review. Removing MRSA 9.14.23 06/17/2019 02/06/2023 9:41 AM C TANG documented as of this encounter Care Teams Area Loss Prevention Manager Relationship Specialty Start Date End Date Ignacia Duran MD PCP - General Pediatrics 01/20/20 03/04/23 [place] [address] [facility] [place] [address] PCP - General 03/05/23 Carlos Joyner MD [address] [place] [address] Urology 12/09/19 Jadon Murray MD [facility] [address] [facility] 550 [place] [address] Referring Physician Pediatric Surgery 12/09/19 Maru Villagomez, RN Registered Nurse 12/10/19 Ang Slade MD [address] 933195 Urology 04/24/20 Carlos Joyner MD [address] [place] [address] 888405 Assigned Surgical Provider 12/24/20 Annalise Orta PA-C 5200 [place] [address] Assigned Cancer Care Provider 05/13/21 11/01/22 Ang Slade MD [address] [address] Urology 12/18/22 Lakshmi Wilhelm PA-C [address] [place] [address]6590 Physician Test Department [facility] Urology 02/03/23 [place] [address] [place] [address] Assigned PCP 02/06/23 Alissa Perez PA-C [address] [place] [address]32 Physician Test Department [facility] Surgery 09/04/23 Lakshmi Wilhelm PA-C [address] [place] [address] 03185 Physician Test Department [facility] Urology 09/16/23 Aidee Valero PA-C [address] [place] [address] 87691 Assigned Musculoskeletal Provider 04/17/24 02/14/25 Carlos Joyner MD [address] [place] [address] 37076 Urology 01/26/25 Jadon Floyd MD [address] [place] [address] 12381 Physician Physical Medicine and Rehabilitation 01/31/25 [place] [address] [place] [address] Assigned Musculoskeletal Provider 02/15/25 Tanisha Marlow 4120 [facility] [address] 03/30/24 documented as of this encounter
--- OUTSIDE RECORDS SUMMARY | 2025-02-26 23:19 | XMS_ITS | Encounter Summary ---
Author Organization [place] Address [address] [place] [address] Care Team Providers Care Development Disability Specialist Name Role Phone Carlos Joyner MD Unavailable + [phone] Jadon Murray MD Unavailable +[phone] Maru Villagomez RN Unavailable Unavailable Ang Slade MD Unavailable +[phone] Carlos Joyner MD Unavailable +[phone] Ang Slade MD Unavailable [phone] Lakshmi Wilhelm-C Unavailable +[phone] Heladio Willoughby MD Primary Care Provider [phone] Heladio Willoughby MD Unavailable Alissa Perez PA-C Unavailable [phone] Lakshmi Wilhelm-C Unavailable [phone] Aidee Valero PA-C Unavailable +[phone] Carlos Joyner MD Unavailable + [phone] Jadon Floyd MD Unavailable +[phone] Cayden Bejarano MD Unavailable Encounter Details Date Type Department Care Team (Late st Contact Info) Description 07/09/2024 [facility] Urology [facility] [place] [address] [facility] [address] [place] [address] Hattie Wing, RN Social History [...] Description 03/03/2025 9:00 AM CDT Office Visit [facility] Physical Medicine and Rehabilitation Clinic [address] [address] Jadon Floyd MD [address] [place] [address] 657125 03/23/2025 12:45 PM CDT Appointment [facility] [address] [facility] [address] [place] [address] [place] [address] [place] [address] 03/23/2025 1:30 PM CDT Hospital Encounter [facility] [address] [facility] [address] [place] [address] [place]jar[place] [address] [place] [address] [address] [place] [address] 03/25/2025 10:20 AM CDT Virtual Visit [facility] Sports Medicine [facility] [address] [place] [address] [address] [place] [address] [place] [address] [place] [address] 04/04/2025 12:00 PM SECRETARY ADMINISTRATIVE ASSISTANT Office Visit [facility] Sleep [address] [phone] Sugey Mccoy, REGIONAL CONTROLLER [address] [address] 05/30/2025 10:20 AM SECRETARY ADMINISTRATIVE ASSISTANT Appointment [facility] [address] [facility] [address] [place] [address] Carlos Joyner MD [address] [place] [address] 538165 05/31/2025 2:00 PM SECRETARY ADMINISTRATIVE ASSISTANT Virtual Visit [facility] Urology Clinic [address] 4th [place] [address] Carlos Joyner MD [address] [place] [address] [phone] 07/25/2025 11:00 AM SECRETARY ADMINISTRATIVE ASSISTANT Office Visit [facility] [address] [phone] [place] [address] [address] [place] [phone] documented as of this encounter Visit Diagnoses Not on filedocumented in this encounter Care Teams Development Disability Specialist Relationship Specialty [place] [address] [address] [phone] PCP - General 03/05/23 Carlos Joyner MD [address] [place] [address] Urology 12/09/19 Jadon Murray MD [facility] 2530 [facility] 550 [place] [address] Referring Physician Pediatric Surgery 12/09/19 Maru Villagomez, RN Registered Nurse 12/10/19 Ang Slade MD [address] [place] [address] 8[address] Urology 04/24/20 Carlos Joyner MD [address] [place] [address] Assigned Surgical Provider 12/24/20 Ang Slade MD [address] [address] Urology 12/18/22 Lakshmi Wilhelm PA-C [address] [place] [address] 20270 Physician Model And Mold Maker Plaster Urology 02/03/23 [place] [address] [place] [address] Assigned PCP 02/06/23 Alissa Perez PA-C [address] [place] [place] [address] 87629 Physician Model And Mold Maker Plaster Surgery 09/04/23 Lakshmi Wilhelm PA-C [address] [place] [address] 48548 Physician Model And Mold Maker Plaster Urology 09/16/23 Aidee Valero PA-C [address] [place] [address] 763635 Assigned Musculoskeletal Provider 04/17/24 02/14/25 Carlos Joyner MD [address] [place] [address] 769805 Urology 01/26/25 Jadon Floyd MD [address] [place] [address] 52494 Physician Physical Medicine and Rehabilitation 01/31/25 [place] [address] [place] [address] Assigned Musculoskeletal Provider 02/15/25 Tanisha Marlow 4120 [facility] [phone] 03/30/24 documented as of this encounter
--- OUTSIDE RECORDS SUMMARY | 2025-02-26 23:19 | XMS_ITS | Encounter Summary ---
Author Organization [place] Address [address] [place] [address] Care Team Providers Care Fountain Pen Nibs Inspector Name Role Phone Carlos Joyner MD Unavailable +[phone] Jadon Murray MD Unavailable +[phone] Maru Villagomez RN Unavailable Unavailable Ang Slade MD Unavailable +[phone] Carlos Joyner MD Unavailable +[phone] Ang Slade MD Unavailable +[phone] Lakshmi Wilhelm-C Unavailable +[phone] Heladio Willoughby MD Primary Care Provider [phone] Heladio Willoughby MD Unavailable Alissa Perez PA-C Unavailable [phone] Lakshmi Wilhelm-C Unavailable +[phone] Aidee Valero PA-C Unavailable +[phone] Carlos Joyner MD Unavailable +[phone] Jadon Floyd MD Unavailable +[phone] Cayden Bejarano MD Unavailable Encounter Details Date Type Department Care Team (Late st Contact Info) Description 06/25/2023 [facility] Urology [place] 6[address] [facility] 4th [place] [address] Carlos Joyner MD [address] [place] [address] [phone] Social History Tobacco Use Types Packs/Day Years [...] Description 03/03/2025 9:00 AM CDT Office Visit [facility] Physical Medicine [facility] Rehabilitation Clinic [address] [place] [address] Jadon Floyd MD [address] [place] [address] 03/23/2025 12:45 PM CDT Appointment [facility] [address] [facility] [address] [place] [address] [place] [address] [place] [address] 03/23/2025 1:30 PM CDT Hospital Encounter [facility] [address] [facility] [address] [place] [address] [place] [address] [place] [address] 03/25/2025 10:20 AM CDT Virtual Visit [facility] Sports Medicine [facility] [address] [place] [address] [address] [place] [address] [place] [address] [place] [address] 04/04/2025 12:00 PM TEACHER OF THE SIGHT IMPAIRED Office Visit [facility] Sleep [facility] [address] [place] [phone] Sugey Mccoy, METALLURGICAL LABORATORY ASSISTANT [address] [address] 05/30/2025 10:20 AM TEACHER OF THE SIGHT IMPAIRED Appointment [facility] [address] [facility] [address] [place] [address] Carlos Joyner MD [address] [place] [address] 356595 05/31/2025 2:00 PM TEACHER OF THE SIGHT IMPAIRED Virtual Visit [facility] U[facility] Clinic [address]th [place] [address] Carlos Joyner MD 909 [place] [address] 07/25/2025 11:00 AM TEACHER OF THE SIGHT IMPAIRED Office Visit [facility] [address] [place] [address] [place] [address] [address] [place], [place] [phone] documented as of this encounter Visit Diagnoses Not on filedocumented in this encounter Care Teams Fountain Pen Nibs Inspector Relationship Specialty Start [place] [address] [address] [place], [place] [phone] PCP - General 03/05/23 Carlos Joyner MD [address] [place] [address] Urology 12/09/19 Jadon Murray MD [facility] [address] [address] Referring Physician Pediatric Surgery 12/09/19 Maru Villagomez, OTILIO Registered Nurse 12/10/19 Ang Slade MD [address] [place] [address] 88649 Urology 04/24/20 Carlos Joyner MD [address] [place] [address] 00634 Assigned Surgical Provider 12/24/20 Ang Slade MD [address] [place] [address] 77082 Urology 12/18/22 Lakshmi Wilhelm PA-C [address] [place] [address] 86371 Physician Payroll And Benefits Manager Urology 02/03/23 [place] [address] [place] [address] Assigned PCP 02/06/23 Alissa Perez PA-C [address] [place] [address]95 Physician Payroll And Benefits Manager Surgery 09/04/23 Lakshmi Wilhelm PA-C [address] [place] [address] 30730 Physician Payroll And Benefits Manager Urology 09/16/23 Aidee Valero PA-C [address] [place] [address] 31364 Assigned Musculoskeletal Provider 04/17/24 02/14/25 Carlos Joyner MD [address] [place] [address] Urology 01/26/25 Jadon Floyd MD [address] [place] [address] 028175 Physician Physical Medicine and Rehabilitation 01/31/25 [place] [address] [place] [address] Assigned Musculoskeletal Provider 02/15/25 Tanisha Marlow 4120 [facility] [address] 03/30/24 documented as of this encounter
--- OUTSIDE RECORDS SUMMARY | 2025-02-26 23:19 | XMS_ITS | Encounter Summary ---
Author Organization [place] Address [address] [place] [address] Care Team Providers Care Product Distribution Specialist Name Role Phone Carlos Joyner MD Unavailable + [phone] Jadon Murray MD Unavailable +[phone] Maru Villagomez RN Unavailable Unavailable Ang Slade MD Unavailable +[phone] Carlos Joyner MD Unavailable + [phone] Ang Slade MD Unavailable +[phone] Lakshmi Wilhelm-C Unavailable +[phone] Heladio Willoughby MD Primary Care Provider [phone] Heladio Willoughby MD Unavailable Alissa Perez PA-C Unavailable [phone] Lakshmi Wilhelm-C Unavailable +[phone] Aidee Valero PA-C Unavailable +[phone] Carlos Joyner MD Unavailable + [phone] Jadon Floyd MD Unavailable +[phone] Cayden Bejarano MD Unavailable Encounter Details Date Type Department Care Team (Late st Contact Info) Description 07/01/[address] [address] Joao Arceo MA Social History Tobacco [...] Description 03/03/2025 9:00 AM CDT Office Visit [facility] Physical Medicine and Rehabilitation Clinic [address] [address] Jadon Floyd MD [address] [place] [address] 127245 03/23/2025 12:45 PM CDT Appointment [facility] [address] [facility] [address] [place] [address] [place] [address] [place] [address] 03/23/2025 1:30 PM CDT Hospital Encounter [facility] [address]66 [facility] [address] [place] [address] Cayden [place]jarano [place] [address] [place] [address] [address] [place] [address] 03/25/2025 10:20 AM CDT Virtual Visit [facility] Sports Medicine [facility] [address] [place] [address] Drive [address] [place] [address] [place] [address] [place] [address] 04/04/2025 12:00 PM HEALTH EDUCATION DIRECTOR Office Visit [facility] Sleep [address] [phone] Sugey Mccoy APRN [address] [address] 05/30/2025 10:20 AM HEALTH EDUCATION DIRECTOR Appointment [facility] [address] [facility] [address] [place] [address] Carlos Joyner MD [address] [place] [address] 975925 05/31/2025 2:00 PM HEALTH EDUCATION DIRECTOR Virtual Visit [facility] Urology Clinic [address] 4th [place] [address] Carlos Joyner MD [address] [place] [address] 07/25/2025 11:00 AM HEALTH EDUCATION DIRECTOR Office Visit [facility] [place] [address] [address] [phone] [place] [address] [address] [place] [phone] documented as of this encounter Visit Diagnoses Not on filedocumented in this encounter Care Teams Product Distribution Specialist Relationship Specialty Start [place] [address] [address] [place] [phone] PCP - General 03/05/23 Carlos Joyner MD [address] [place] [address] Urology 12/09/19 Jadon Murray MD [facility] 2530 [facility] 550 [place] [address] Referring Physician Pediatric Surgery 12/09/19 Maru Villagomez, RN Registered Nurse 12/10/19 Ang Slade MD [address] [place] [address] 17945 Urology 04/24/20 Carlos Joyner MD [address] [place] [address]116 Assigned Surgical Provider 12/24/20 Ang Slade MD [address] [place] [address] 44517 Urology 12/18/22 Lakshmi Wilhelm PA-C [address] [place] [address] 15519 Physician Child Welfare Worker Urology 02/03/23 [place] [address] [place] [address] Assigned PCP 02/06/23 Alissa Perez PA-C [address] [place] [address] Physician Child Welfare Worker Surgery 09/04/23 Lakshmi Wilhelm PA-C [address] [place] [address] 54573 Physician Child Welfare Worker Urology 09/16/23 Aidee Valero PA-C [address] [place] [address] 312845 Assigned Musculoskeletal Provider 04/17/24 02/14/25 Carlos Joyner MD [address] [place] [address] [phone] Urology 01/26/25 Jadon Floyd MD [address] [place] [address]903 Physician Physical Medicine and Rehabilitation 01/31/25 [place] [address] [place] [address] Assigned Musculoskeletal Provider 02/15/25 Tanisha Marlow 4120 [facility] [address] 03/30/24 documented as of this encounter
--- OUTSIDE RECORDS SUMMARY | 2025-02-26 23:19 | XMS_ITS | Encounter Summary ---
Author Organization [place] Address [address] [place] [address] 47750 Care Team Providers Care Foster Care Social Worker Name Role Phone Carlos Joyner MD Unavailable +[phone] Jadon Murray MD Unavailable +[phone] Maru Villagomez RN Unavailable Unavailable Ignacia Duran MD Primary Care Provider +[phone] Ang Slade MD Unavailable +[phone] Carlos Joyner MD Unavailable +[phone] Annalise Orta PA-C Unavailable +[phone] Ang Slade MD Unavailable +[phone] Lakshmi Wilhelm-C Unavailable +[phone] Heladio Willoughby MD Primary Care Provider [phone] Heladio Willoughby MD Unavailable Alissa Perez PA-C Unavailable [phone] LaLakshmi morales-C Unavailable +[phone] Aidee Valero PA-C Unavailable +[phone] Carlos Joyner MD Unavailable +[phone] Jadon Floyd MD Unavailable [phone] Cayden Bejarano MD Unavailable Encounter Details Date Type Department Care Team (Late st Contact Info) Description 04/16/2021 MyC Medical Advice [facility] [address]th [place] [address] Berna Britton Social History Tobacco Use Types [...] [facility] [address]rd [place] [address] Jadon Floyd MD [address] [place] [address] 576955 03/23/2025 12:45 PM CDT Appointment [facility] [address] [place] [address] [place] [address] [facility] [address] [place] [address] 03/23/2025 1:30 PM CDT Hospital Encounter [facility] [address] [place] [address] Cayden [place]jar[place] [address] [place] [address] 03/25/2025 10:20 AM CDT Virtual Visit [facility] [place] [address] [place] [address] [place] [address] [place] [address] [place] [address] 04/04/2025 12:00 PM FIXING MACHINE OPERATOR Office Visit [facility] [place] [address] [place] [address] Sugey Mccoy, [facility] [address] [place] [address] [address] [place] [address] 05/30/2025 10:20 AM FIXING MACHINE OPERATOR Appointment [facility] [address] [place] [address]25[address] Carlos Joyner MD [address] [place] [address] 638125 05/31/2025 2:00 PM FIXING MACHINE OPERATOR Virtual Visit [facility] [address] 4th [place] [address] Carlos Joyner MD [address] [place] [address] 07/25/2025 11:00 AM FIXING MACHINE OPERATOR Office Visit [facility] [address] [place] [address] [place] [address] [place] [address] documented as of this encounter Visit Diagnoses Not on filedocumented in this encounter Additional Health Concerns Infection Onset Date Last Indicated Resolved Time MRSA Comment:Added from external infection. Pt has had Staph infections but never MRSA from Care everywhere chart review. Removing MRSA 02.06.23 06/17/2019 02/06/2023 9:41 AM C DT documented as of this encounter Care Teams Foster Care Social Worker Relationship Specialty Start Date End Date Ignacia Duran MD PCP - General Pediatrics 01/20/20 03/04/23 [place] [address] [facility] [place] [address] PCP - General 03/05/23 Carlos Joyner MD [address] [place] [address]115 Urology 12/09/19 Jadno Murray MD [facility] [address] [facility] NANCY [address] [place] [address] 34360 Referring Physician Pediatric Surgery 12/09/19 Maru Villagomez, RN Registered Nurse 12/10/19 Ang Slade MD [address] [place] [address] 639345 Urology 04/24/20 Carlos Joyner MD [address] [place] [address] 657905 Assigned Surgical Provider 12/24/20 Annalise Orta PA-C 5200 [place] [address] Assigned Cancer Care Provider 05/13/21 11/01/22 Ang Slade MD [address] 221895 Urology 12/18/22 Lakshmi Wilhelm PA-C [address] [place] [address] 79354 Physician Field Property Loss Specialist Urology 02/03/23 [place] [address] [place] [address] Assigned PCP 02/06/23 Alissa Perez PA-C [address] [place] [address]608 Physician Field Property Loss Specialist Surgery 09/04/23 Lakshmi Wilhelm PA-C [address] [place] [address] Physician Field Property Loss Specialist Urology 09/16/23 Aidee Valero PA-C [address] [place] [address] 67486 Assigned Musculoskeletal Provider 04/17/24 02/14/25 Carlos Joyner MD [address] [place] [address] Urology 01/26/25 Jadon Floyd MD [address] [place] [address] 27813 Physician Physical Medicine and Rehabilitation 01/31/25 [place] [address] [place] [address] Assigned Musculoskeletal Provider 02/15/25 Tanisha Marlow 4120 [facility] [address] 03/30/24 documented as of this encounter
--- OUTSIDE RECORDS SUMMARY | 2025-02-26 23:19 | XMS_ITS | Encounter Summary ---
Author Organization [place] Address [address] [place] [address] Care Team Providers Care Industrial Education Teacher Name Role Phone Carlos Joyner MD Unavailable [phone] Jadon Murray MD Unavailable [phone] Maru Villagomez RN Unavailable Unavailable Ignacia Duran MD Primary Care Provider [phone] Ang Slade MD Unavailable [phone] Carlos Joyner MD Unavailable +[phone] Annalise Orta PA-C Unavailable +[phone] Ang Slade MD Unavailable +[phone] Lakshmi Wilhelm-C Unavailable [phone] Heladio Willoughby MD Primary Care Provider [phone] Heladio Willoughby MD Unavailable Alissa Perez PA-C Unavailable [phone] LaLakshmi morales-C Unavailable [phone] Aidee Valero PA-C Unavailable [phone] Carlos Joyner MD Unavailable +[phone] Jadon Floyd MD Unavailable [phone] Cayden Bejarano MD Unavailable Encounter Details Date Type Department Care Team (Late st Contact Info) Description 11/14/2021 MyC Medical Advice [facility] [address] [place] [address] Analisa Palacio RN Social History Tobacco Use [...] Description 03/03/2025 9:00 AM CDT Office Visit [facility] [address] [place] [address] Jadon Floyd MD [address] [place] [address] 851715 03/23/2025 12:[address] [facility] [address] [facility] [address] [place] [phone] Cayden Bejarano MD [address] [place], [place] [address] [place] [address] 03/23/2025 1:30 PM CDT Hospital Encounter [facility] [address] [place] [address] [place] [address] [place] [address] [place] [address] 03/25/2025 10:20 AM CDT Virtual Visit [facility] [place] [address] [place] [address] [place] [address] [place] [address] [place] [address] 04/04/2025 12:00 PM OIL WELL PUMPER Office Visit [facility] [place] [address] [place] [address] Sugey Mccoy APRN [facility] [address] [place], [place] 15[address] 05/30/2025 10:20 AM OIL WELL PUMPER Appointment [facility] [address] [place] [address] Carlos Joyner MD [address] [place] [address] 834675 05/31/2025 2:00 PM OIL WELL PUMPER Virtual Visit [facility] [place] 909 [facility] 4th [place] [address] Carlos Joyner MD [address] [place] [address] 07/25/2025 11:00 AM OIL WELL PUMPER Office Visit [facility] [address] [place] [address] [place] [address] [place] [address] documented as of this encounter Visit Diagnoses Not on filedocumented in this encounter Additional Health Concerns Infection Onset Date Last Indicated Resolved Time MRSA Comment:Added from external infection. Pt has had Staph infections but never MRSA from Care everywhere chart review. Removing MRSA 9.14.23 06/17/2019 02/06/2023 9:41 AM C DT documented as of this encounter Care Teams Industrial Education Teacher Relationship Specialty Start Date End Date Ignacia Duran MD PCP - General Pediatrics 01/20/20 03/04/23 [place] [address] [place] [address] PCP - General 03/05/23 Carlos Joyner MD [address] [place] [address] 82572 Urology 12/09/19 Jadon Murray MD [facility] [address] [address] Referring Physician Pediatric Surgery 12/09/19 Maru Villagomez, RN Registered Nurse 12/10/19 Ang Slade MD [address] [place] [address] 34232 Urology 04/24/20 Carlos Joyner MD [address] [place] [address] 02966 Assigned Surgical Provider 12/24/20 Annalise Orta PA-C [address] [place] [address] Assigned Cancer Care Provider 05/13/21 11/01/22 Ang Slade MD [address] [address] Urology 12/18/22 Lakshmi Wilhelm PA-C [address] [place] [address] 30718 Physician Bleacher Sulfite Pulp Urology 02/03/23 [place] [address] [facility] [place] [address] Assigned PCP 02/06/23 Alissa Perez PA-C [address] [place] [address] 906935 Physician Bleacher Sulfite Pulp Surgery 09/04/23 Lakshmi Wilhelm PA-C [address] [place] [address] 11341 Physician Bleacher Sulfite Pulp Urology 09/16/23 Aidee Valero PA-C [address] [place] [address] 741305 Assigned Musculoskeletal Provider 04/17/24 02/14/25 Carlos Joyner MD [address] [place] [address] 969285 Urology 01/26/25 Jadon Floyd MD [address] [place] [address] 822585 Physician Physical Medicine and Rehabilitation 01/31/25 [place] [address] [place] [address] Assigned Musculoskeletal Provider 02/15/25 Tanisha Marlow 4120 [facility] [address] 03/30/24 documented as of this encounter
--- OUTSIDE RECORDS SUMMARY | 2025-02-26 23:19 | XMS_ITS | Encounter Summary ---
Author Organization [place] Address [address] [place] [address] Care Team Providers Care Marbleizing Machine Tender Name Role Phone Carlos Joyner MD Unavailable [phone] Jadon Murray MD Unavailable [phone] Maru Villagomez RN Unavailable Unavailable Ignacia Duran MD Primary Care Provider [phone] Ang Slade MD Unavailable [phone] Carlos Joyner MD Unavailable +[phone] Annalise Orta PA-C Unavailable +[phone] Ang Slade MD Unavailable [phone] Lakshmi Wilhelm-C Unavailable [phone] Heladio Willoughby MD Primary Care Provider [phone] Heladio Willoughby MD Unavailable Alissa Perez PA-C Unavailable [phone] LaLakshmi morales-C Unavailable +[phone] Aidee Valero PA-C Unavailable [phone] Carlos Joyner MD Unavailable +[phone] Jadon Floyd MD Unavailable [phone] Cayden Bejarano MD Unavailable Encounter Details Date Type Department Care Team (Late st Contact Info) Description 09/17/2021 MyC Medical Advice [facility] Clinic [address] [place] [phone] Carlos Joyner MD [address] [place] [address] Social History Tobacco Use Types Packs/Day Years [...] Description 03/03/2025 9:00 AM CDT Office Visit [facility] Rehabilitation [facility] [address] [place] [address] Jaodn Floyd MD [address] [place] [address] 03/23/2025 12:45 PM CDT Appointment [facility] [address] [facility] [address] [place] [address] Cayden Bejarano MD [address] [place] [address] [address] [place] [address] 03/23/2025 1:30 PM CDT Hospital Encounter [facility] [address] [address] [place] [phone] Cayden Bejarano MD [address] [place] [address] [address] [place] [address] 03/25/2025 10:20 AM CDT Virtual Visit [facility] [place] [address] [facility] [address] [place] [address] Cayden Bejarano MD [address] [place] [address] [address] [place] [address] 04/04/2025 12:00 PM ARCHITECTURE MANAGER Office Visit [facility] [place] [address] [facility] [place] [phone] Sugey Mccoy APRN [facility] [address] [place] [address] [address] [place], [place] 169884 05/30/2025 10:20 AM ARCHITECTURE MANAGER Appointment [facility] [address] [facility] [address] [place] [address] Carlos Joyner MD [address] [place] [address] 622905 05/31/2025 2:00 PM ARCHITECTURE MANAGER Virtual Visit [facility] [address] 4th [place] [address] Carlos Joyner MD [address] [place] [address] 074535 07/25/2025 11:00 AM ARCHITECTURE MANAGER Office Visit [address] [address] [place] [address] [place] [address] documented as of this encounter Visit Diagnoses Not on filedocumented in this encounter Additional Health Concerns Infection Onset Date Last Indicated Resolved Time MRSA Comment:Added from external infection. Pt has had Staph infections but never MRSA from Care everywhere chart review. Removing MRSA 02.06.23 06/17/2019 02/06/2023 9:41 AM C DT documented as of this encounter Care Teams Marbleizing Machine Tender Relationship Specialty Start Date End Date Ignacia Duran MD PCP - General Pediatrics 01/20/20 03/04/23 [place] [address] [place] [address] PCP - General 03/05/23 Carlos Joyner MD [address] [place] [address] 069065 Urology 12/09/19 Jadon Murray MD [facility] 2530 [facility] [address] [place] [address] Referring Physician Pediatric Surgery 12/09/19 Maru Villagomez, RN Registered Nurse 12/10/19 Ang Slade MD 420 [facility] 394 [place], [place] 582115 Urology 04/24/20 Carlos Joyner MD [address] [place] [address] 276905 Assigned Surgical Provider 12/24/20 Annalise Orta PA-C 5200 [place] [address] Assigned Cancer Care Provider 05/13/21 11/01/22 Ang Slade MD [address] [place] [address] 147945 Urology 12/18/22 Lakshmi Wilhelm PA-C [address] [place] [address] 39129 Physician Event Set Up Specialist Urology 02/03/23 [place] [address] [place] [address] Assigned PCP 02/06/23 Alissa Perez PA-C [address] [place] [address] 965905 Physician Event Set Up Specialist Surgery 09/04/23 Lakshmi Wilhelm PA-C [address] [place] [address] 698125 Physician Event Set Up Specialist Urology 09/16/23 Aidee Valero PA-C [address] [place] [address] 32227 Assigned Musculoskeletal Provider 04/17/24 02/14/25 Carlos Joyner MD [address] [place] [address] 151535 Urology 01/26/25 Jadon Floyd MD [address] [place] [address] 60401 Physician Physical Medicine and Rehabilitation 01/31/25 [place] [address] [place] [address] Assigned Musculoskeletal Provider 02/15/25 Tanisha Marlow [address] [place] [address] 03/30/24 documented as of this encounter
--- OUTSIDE RECORDS SUMMARY | 2025-02-26 23:19 | XMS_ITS | Encounter Summary ---
Author Organization [place] Address [address] [place] [address] Care Team Providers Care Poolroom Table Attendant Name Role Phone Carlos Joyner MD Unavailable [phone] Jadon Murray MD Unavailable [phone] Maru Villagomez RN Unavailable Unavailable Ang Slade MD Unavailable +[phone] Carlos Joyner MD Unavailable [phone] Ang Slade MD Unavailable [phone] Lakshmi WilhelmC Unavailable [phone] Heladio Willoughby MD Primary Care Provider [phone] Heladio Willoughby MD Unavailable Alissa Perez PA-C Unavailable [phone] Lakshmi Wilhelm PA-C Unavailable +[phone] Aidee Valero-C Unavailable +[phone] Carlos Joyner MD Unavailable [phone] Encounter Details Date Type Department Care Team (Latest Contact Info) Description 01/28/2025 Travel Social History Tobacco Use Types Packs/Day [...] than three times a week 07/16/2024 Attends Amish Services Not on file 07/16 Active Member of Clubs or Organizations Not on f ile 07/16/2024 Attends Club or Organization Meetings Not on antelmo e 07/16/2024 Marital Status Not on file 07/16/2024 PHQ-2 Answer Date Recorded PHQ-2 Score 0 09/13/2024 [facility] - Occupational [...] [facility] Clinic [address] [phone] Jadon Floyd MD [address] [place] [address] [phone] 03/23/2025 12:45 PM CDT Appointment [facility] [address] [place] [address] Cayden Bejarano [place] [address] [place] [address] 03/23/2025 1:30 PM CDT Hospital Encounter [facility] [address] [place] [address] [place] [address] [place] [address] 03/25/2025 10:20 AM CDT Virtual Visit [facility] [place] [address] [place], [place] [address] [place] [address] Cayden Bejarano [place] [address] [place] [address] 04/04/2025 12:00 PM MULE TENDER Office Visit [facility] [place] [address] [place] [phone] Darius Elvirginia Elder, [facility] [address] [place], [place] [address] [place] [address] 05/30/2025 10:20 AM MULE TENDER Appointment [facility] [address] [facility] [address] [place] [address] Carlos Joyner MD [address] [place] [address] [id number] 05/31/2025 2:00 PM MULE TENDER Virtual Visit [facility] Urology Clinic [address] 4th [place] [phone] Carlos Joyner MD [address] [place] [address] 535715 07/25/2025 11:00 AM MULE TENDER Office Visit [facility] [address] [place] [address] [place] [address] [place] [address] documented as of this encounter Visit Diagnoses Not on filedocumented in this encounter Care Teams Poolroom Table Attendant Relationship Specialty Start Date End Date Heladio [place] [address] [place] [address] PCP - General 03/05/23 Carlos Joyner MD [address] [place] [address] 609565 Urology 12/09/19 Jadon Murray MD [facility] [address] [facility] 550 [place] [address] Referring Physician Pediatric Surgery 12/09/19 Maru Villagomez, RN Registered Nurse 12/10/19 Ang Slade MD 420 [facility] 394 [place], [place] 178115 Urology 04/24/20 Carlos Joyner MD [address] [place] [address] 838835 Assigned Surgical Provider 12/24/20 Ang Slade MD [address] [place] [address] 394 [place], [place] 174135 Urology 12/18/22 Lakshmi Wilhelm PA-C [address] [place] [address] 524515 Physician Hourly Manager Urology 02/03/23 [place] [address] [place] [address] Assigned PCP 02/06/23 Alissa Perez PA-C [address] [place] [address] 883275 Physician Hourly Manager Surgery 09/04/23 Lakshmi Wilhelm PA-C [address] [place] [address] 822085 Physician Hourly Manager Urology 09/16/23 Aidee Valero PA-C [address] [place] [address] Assigned Musculoskeletal Provider 04/17/24 02/14/25 Carlos Joyner MD [address] [place], [place] 304055 Urology 01/26/25 Tanisha Marlow 4120 [facility] [address] 03/30/24 documented as of this encounter
--- OUTSIDE RECORDS SUMMARY | 2025-02-26 23:19 | XMS_ITS | Encounter Summary ---
Author Organization [place] Address [address] [place] [address] Care Team Providers Care Priming Powder Premix Blender Name Role Phone Carlos Joyner MD Unavailable +[phone] Jadon Murray MD Unavailable +[phone] Maru Villagomez RN Unavailable Unavailable Ang Slade MD Unavailable +[phone] Carlos Joyner MD Unavailable +[phone] Ang Slade MD Unavailable +[phone] Lakshmi Wilhelm-C Unavailable +[phone] Heladio Willoughby MD Primary Care Provider [phone] Heladio Willoughby MD Unavailable Alissa Perez PA-C Unavailable [phone] Lakshmi Wilhelm-C Unavailable +[phone] Aidee Valero PA-C Unavailable +[phone] Carlos Joyner MD Unavailable +[phone] Jadon Floyd MD Unavailable [phone] Cayden Bejarano MD Unavailable Encounter Details Date Type Department Care Team (Late st Contact Info) Description 04/08/2023 [facility] [place] [id number] [facility] 4th [place] [address] Rosita Velasco, RN Social History [...] in an overnight residential, or couch-surfing.) Yes 04/11/2023 Are you worried [...] 03/03/2025 9:00 AM CDT Office Visit [facility] Rehabilitation [facility] [address] [address] Jadon Floyd MD [address] [place] [address] [id number] 03/23/2025 12:45 PM CDT Appointment [facility] [address] [facility] [address] [place] [address] [place] [address] [place] [address] 03/23/2025 1:30 PM CDT Hospital Encounter [facility] [address] [facility] [address] [place] [address] [place]den [place]jar[place] [id number] [place] [address] [address] [place] [address] 03/25/2025 10:20 AM CDT Virtual Visit [facility] Sports Medicine [facility] [address] [place] [address] [address] [place] [address] [place] [address] [place] [address] 04/04/2025 12:00 PM SURVEY SUPERINTENDENT Office Visit [facility] Sleep [address] [phone] Sugey Mccoy, NESTOR [address] [address] 05/30/2025 10:20 AM SURVEY SUPERINTENDENT Appointment [facility] [address] [facility] [address] [place] [address] Carlos Joyner MD [address] [place] [address] [id number] 05/31/2025 2:00 PM SURVEY SUPERINTENDENT Virtual Visit [facility] Urology Clinic [address] 4th [place] [phone] Carlos Joyner MD [address] [place] [address] 07/25/2025 11:00 AM SURVEY SUPERINTENDENT Office Visit [facility] [address] [phone] [place] [address] [address] [place] [phone] documented as of this encounter Visit Diagnoses Not on filedocumented in this encounter Care Teams Priming Powder Premix Blender Relationship Specialty [place] [address] [address] [id number] PCP - General 03/05/23 Carlos Joyner MD [address] [place] [address] Urology 12/09/19 Jadon Murray MD [facility] [address]30 [facility] 550 [place] [address] Referring Physician Pediatric Surgery 12/09/19 Maru Villagomez, RN Registered Nurse 12/10/19 Ang Slade MD [address] [place] [address] 487[address] Urology 04/24/20 Carlos Joyner MD [address] [place] [address] 18544 Assigned Surgical Provider 12/24/20 Ang Slade MD [address] [place] [address] 23186 Urology 12/18/22 Lakshmi Wilhelm PA-C [address] [place] [address]32 Physician Paving Bed Maker Urology 02/03/23 [place] [address] [place] [address] Assigned PCP 02/06/23 Alissa Perez PA-C [address] [place] [address] Physician Paving Bed Maker Surgery 09/04/23 Lakshmi Wilhelm PA-C [address] [place] [address]237 Physician Paving Bed Maker Urology 09/16/23 Aidee Valero PA-C [address] [place] [address] [id number] Assigned Musculoskeletal Provider 04/17/24 02/14/25 Carlos Joyner MD [address] [place] [address] [id number] Urology 01/26/25 Jadon Floyd MD [address] [place] [address] Physician Physical Medicine and Rehabilitation 01/31/25 [place] [address] [place] [address] Assigned Musculoskeletal Provider 02/15/25 Tanisha Marlow [facility] [address] 03/30/24 documented as of this encounter
--- OUTSIDE RECORDS SUMMARY | 2025-02-26 23:19 | XMS_ITS | Encounter Summary ---
Author Organization [place] Address [address] [facility] [place] [address] Care Team Providers Care Optical Technician Name Role Phone Carlos Joyner MD Unavailable + [phone] Jadon Murray MD Unavailable +[phone] Maru Villagomez RN Unavailable Unavailable Ang Slade MD Unavailable +[phone] Carlos Joyner MD Unavailable + [phone] Ang lSade MD Unavailable [phone] Lakshmi Wilhelm-C Unavailable +[phone] Heladio Willoughby MD Primary Care Provider [phone] Heladio Willoughby MD Unavailable Alissa Perez PA-C Unavailable [phone] Lakshmi Wilhelm-C Unavailable [phone] Aidee Valero PA-C Unavailable [phone] Carlos Joyner MD Unavailable + [phone] Jadon Floyd MD Unavailable [phone] Cayden Bejarano MD Unavailable Encounter Details Date Type Department Care Team (Late st Contact Info) Description 03/27/2023 [facility] Medical Advice UR PREOP/PHASE II 2450 [place] [address] Lisette Salinas, OTILIO Social History Tobacco Use Types Packs/Day [...] in an overnight intermediate, or couch-surfing.) Yes 02/26/2023 Are you worried [...] Center Physical [facility] Rehabilitation Clinic [address] 3rd [place] [address] Jadon Floyd MD 909 [place] [address] 03/23/2025 12:45 PM CDT Appointment [facility] [address] [facility] [address] [place] [address] [place] [address] [place] [address] 03/23/2025 1:30 PM CDT Hospital Encounter [facility] [address] [facility] [address] [place] [address] [place]den [place]jar[place] [address] [place] [address] [address] [place] [address] 03/25/2025 10:20 AM CDT Virtual Visit [facility] Sports Medicine [facility] [place] [address] [place] [address] [address] [place] [address] [place] [address] [place] [address] 04/04/2025 12:00 PM SUPERVISOR DENTAL LABORATORY Office Visit [address] [phone] Sugey Mccoy, HEALTH AND FITNESS INSTRUCTOR [address] [address] 05/30/2025 10:20 AM SUPERVISOR DENTAL LABORATORY Appointment [facility] [address] [facility] [address] [place] [phone] Carlos Joyner MD 909 [place] [address] 05/31/2025 2:00 PM SUPERVISOR DENTAL LABORATORY Virtual Visit [facility] Urology Clinic [place] 909 [facility] 4th [place] [address] Carlos Joyner MD [address] [place] [address] 324705 07/25/2025 11:00 AM SUPERVISOR DENTAL LABORATORY Office Visit [facility] [address] [facility] [place] [phone] [place] [address] [place], [place] [phone] documented as of this encounter Visit Diagnoses Not on filedocumented in this encounter Care Teams Optical Technician Relationship Specialty [place] [address] [address] [place], [place] [phone] PCP - General 03/05/23 Carlos Joyner MD [address] [place] [address] 977165 Urology 12/09/19 Jadon Murray MD [facility] [address] [address] Referring Physician Pediatric Surgery 12/09/19 Maru Villagomez, RN Registered Nurse 12/10/19 Ang Slade MD [address] [place] [address] 394 [place], [place] 144205 Urology 04/24/20 Carlos Joyner MD [address] [place] [address] Assigned Surgical Provider 12/24/20 Ang Slade MD [address] [place] [address] 475135 Urology 12/18/22 Lakshmi Wilhelm PA-C [address] [place] [address] 975505 Physician Chief Legal Officer Urology 02/03/23 [place] [address] [place] [address] Assigned PCP 02/06/23 Alissa Perez PA-C [address] [place] [address]92 Physician Chief Legal Officer Surgery 09/04/23 Lakshmi Wilhelm PA-C [address] [place] [address] Physician Chief Legal Officer Urology 09/16/23 Aidee Valero PA-C [address] [place] [address] 976405 Assigned Musculoskeletal Provider 04/17/24 02/14/25 Carlos Joyner MD [address] [place] [address] [phone] Urology 01/26/25 Jadon Floyd MD [address] [place] [address] 103465 Physician Physical Medicine and Rehabilitation 01/31/25 [place] [address] [place] [address] Assigned Musculoskeletal Provider 02/15/25 Tanisha Marlow [address] [address] 03/30/24 documented as of this encounter
--- OUTSIDE RECORDS SUMMARY | 2025-02-26 23:19 | XMS_ITS | Encounter Summary ---
Author Organization [place] Address [address] [place] [address] Care Team Providers Care Bank Representative Name Role Phone Carlos Joyner MD Unavailable [phone] Jadon Murray MD Unavailable +[phone] Maru Villagomez RN Unavailable Unavailable Ang Slade MD Unavailable [phone] Carlos Joyner MD Unavailable [phone] Ang Slade MD Unavailable [phone] Lakshmi WilhelmC Unavailable [phone] Heladio Willoughby MD Primary Care Provider [phone] Heladio Willoughby MD Unavailable Alissa Perez PA-C Unavailable [phone] Lakshmi Wilhelm PA-C Unavailable [phone] Aidee Valero-C Unavailable +[phone] Carlos Joyner MD Unavailable [phone] Encounter Details Date Type Department Care Team (Latest Contact Info) Description 01/27/2025 Travel Social History Tobacco Use Types Packs/Day [...] Description 03/03/2025 9:00 AM CDT Office Visit [facility] Physical Medicine and Rehabilitation Clinic [address] [phone] Jadon Floyd MD [address] [place] [address] 488705 03/23/2025 12:[address] [facility] [address] [place] [address] Cayden [place]jar[place] [address] [place] [address] 03/23/2025 1:30 PM CDT Hospital Encounter [facility] [address] [place] [address] [place] [address] [place] [address] 03/25/2025 10:20 AM CDT Virtual Visit [facility] Sports Medicine [facility] [place] [address] [place], [place] [address] [place] [address] Cayden [place]jar[place] [address] [place] [address] 04/04/2025 12:00 PM COLLATERAL SPECIALIST Office Visit [facility] [place] [address] [place] [phone] Darius Elvirginia Elder, NESTOR [facility] [address] [place], [place] [address]E [address] [place] [address] 05/30/2025 10:20 AM COLLATERAL SPECIALIST Appointment [facility] [address] [facility] [address] [place] [phone] Carlos Joyner MD [address] [place] [address] [phone] 05/31/2025 2:00 PM COLLATERAL SPECIALIST Virtual Visit [facility] Urology Clinic [address] 4th [place] [phone] Carlos Joyner MD [address] [place] [address] 891475 07/25/2025 11:00 AM COLLATERAL SPECIALIST Office Visit [facility] [address] [place] [address] [place] [address] [place] [address] documented as of this encounter Visit Diagnoses Not on filedocumented in this encounter Care Teams Bank Representative Relationship Specialty Start Date End Date Heladio [place]by [place] [address] [place] [address] PCP - General 03/05/23 Carlos Joyner MD [address] [place] [address] 275605 Urology 12/09/19 Jadon Murray MD [facility] 2530 [facility] 550 [place] [address] Referring Physician Pediatric Surgery 12/09/19 Maru Villagomez, RN Registered Nurse 12/10/19 Ang Slade MD 420 [facility] 394 [place], [place] 956725 Urology 04/24/20 Carlos Joyner MD [address] [place] [address] [phone] Assigned Surgical Provider 12/24/20 Ang Slade MD [address] [place] [address] 394 [place], [place] 963675 Urology 12/18/22 Lakshmi Wilhelm PA-C [address] [place] [address] 712565 Physician Electric Welder Helper Urology 02/03/23 [place] [address] [place] [address] Assigned PCP 02/06/23 Alissa Perez PA-C [address] [place] [address] 862205 Physician Electric Welder Helper Surgery 09/04/23 Lakshmi Wilhelm PA-C [address] [place] [address] [phone] Physician Electric Welder Helper Urology 09/16/23 Aidee Valero PA-C 909 [place] [address] Assigned Musculoskeletal Provider 04/17/24 02/14/25 Carlos Joyner MD 9 [place], [place] 824145 Urology 01/26/25 Tanisha Marlow 4120 [facility] [address] 03/30/24 documented as of this encounter
--- OUTSIDE RECORDS SUMMARY | 2025-02-26 23:19 | XMS_ITS | Clinical Summary ---
Author Organization [facility] Address [address] [place] [address] Care Team Providers Care Industrial Relations Representative Name Role Phone Carlos Joyner MD Unavailable [phone] Jadon Murray MD Unavailable [phone] Maru Villagomez RN Unavailable Unavailable Ang Slade MD Unavailable [phone] Carlos Joyner MD Unavailable [phone] Ang Slade MD Unavailable [phone] Lakshmi Wilhelm-C Unavailable [phone] Heladio Willoughby MD Primary Care Provider [phone] Heladio Willoughby MD Unavailable Alissa Perez PA-C Unavailable [phone] Lakshmi Wilhelm PA-C Unavailable [phone] Carlos Joyner MD Unavailable [phone] Jadon Floyd MD Unavailable [phone] Cayden Bejarano MD Unavailable Allergies Active Allergy Reactions Criticality Noted [...] 4) MISC Apply 1 each topically 11/10/19 Active Multiple Vitamin (MULTI-VITAMINS) TABS Take 1 [...] USE TO FLUSH BLADDER 11/09/19 Active NEW MEDIndications:Recu rrent UTI 480 MG Gentamicin in 1 Liter 0.9 Normal Saline. Instill 60 mL of Gentamicin solution into bladder at HS 1800 mL 11 03/15/20 Active Saline Bacteriostatic (SODIUM CHLORIDE BACTERIOSTATIC) 0.9 % SOLN flushIndications:Re current UTI Irrigate with 30 mLs as directed At Bedtime for 31 doses 930 mL 11 08/10/19 Active NEW MEDIndications:DUPI CAYLA 480mg Gentamicin in one liter of Normal Saline. Instill 30 ml of gentamicin solution into bladder at bedtime 930 mL 11 08/10/19 Active acetaminophen (TYLENOL) 325 MG tablet Take 325-650 mg by mouth every 6 hours as needed for mild pain Active bisacodyl (DULCOLAX) 5 MG EC tablet 0 Refill(s), Maintenance 03/13/20 21 Active polyethylene glycol (MIRALAX) 17 GM/Dose powder See Instructions, 1-3 tsp as needed to maintain soft stools, # 527 g, 1 Refill(s), Maintenance, other 03/13/20 21 Active Wound Dressings (MEDIHONEY CA ALGINATE 2X2) PADSIndications:Pre ssure ulcer acquired in [facility] Externally apply 1 each topically daily 10 each 04/16/20 23 Active potassium chloride ER (K-TAB) 20 MEQ CR tabletIndications:H ypercalciuria Take 1 tablet (20 mEq) by mouth daily 90 tablet 3 06/17/19 24 Active gentamicin (GARAMYCIN) 40 MG/ML injection 40 mg every 24 hours. 11/11/19 24 Active COMPOUNDED NON-CONTROLLED SUBSTANCE (CMPD RX) - PHARMACY TO MIX COMPOUNDED MEDICATIONIndicatio ns:Recurrent UTI Instill 30 mL into the bladder via straight catheter once daily per provider instructions. 900 mL 11 07/22/19 25 Active indapamide (LOZOL) 1.25 MG tabletIndications:H ypercalciuria Take 1 tablet (1.25 mg) by mouth every morning. 90 tablet 3 09/08/19 25 Active cyclobenzaprine (FLEXERIL) 5 MG tablet Take 5 mg by mouth 3 times daily as needed for muscle spasms. Active potassium chloride marcie ER (KLOR-CON M10) 10 MEQ CR tabletIndications:H ypercalciuria TAKE ONE TABLET BY MOUTH TWICE DAILY 90 tablet 09/30/19 25 Active potassium chloride marcie ER (KLOR-CON M10) 10 MEQ CR tabletIndications:K idney stone Take 1 tablet (10 mEq) by mouth 2 times daily. 180 tablet 3 10/02/19 25 Active Vitamin D3 (VITAMIN D, CHOLECALCIFEROL,) 25 mcg (1000 units) tablet Take by mouth daily. Active oxyBUTYnin (DITROPAN) 5 MG tabletIndications:B ladder spasms Take 1 tablet (5 mg) by mouth 2 times daily. 180 tablet 2 11/28/19 25 Active polyethylene glycol (MIRALAX) 17 GM/Dose powderIndications:B ilateral nephrolithiasis Take 17 g by mouth daily. 510 g 12/05/19 25 Active sennosides (SENOKOT) 8.6 MG tabletIndications:B ilateral nephrolithiasis Take 1 tablet by mouth 2 times daily as needed for constipation. 100 tablet 12/05/19 25 Active levonorgestrel (MIRENA) 52 MG (20 mcg/day) IUD 1 each by Intrauterine route once. Active Acetohydroxamic Acid (LITHOSTAT) 250 MG TABSIndications:Rec urrent UTI Take 250 mg by mouth 3 times daily. 270 tablet 3 01/26/20 25 Active sulfamethoxazole-tr imethoprim (BACTRIM DS) 800-160 MG tabletIndications:R ecurrent UTI Take 1 tablet by mouth 2 times daily. Take TWICE daily for one week, then decrease dose to ONCE daily for an additional week. 21 tablet 02/26/20 25 Active sodium chloride 0.9%, bottle, 0.9 % irrigationIndicatio ns:Neurogenic bladder,Recurrent UTI Irrigate with 240 mLs as directed daily. 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 (03/14/2020): Vertebra Absence Congenital Kyphosis (acquired) (postural) 08/04/2008 Overview (03/14/2020): Kyphosis Neurogenic bladder 07/22/2003 Overview (03/05/2023): LW Onset: 65Pff27 ; Paralysis Bladder Neurogenic bowel 07/22/2003 Overview (03/14/2020): LW Onset: 70Eei64 Paraplegia 07/22/2003 Overview (01/24/2025): T12 paraplegia, completely flaccid Short stature disorder 07/22/2003 Overview (03/14/2020): LW Onset: 91Hak32 ; Short Stature 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/22/2003 Overview (07/23/2024): Complicated by hydrocephalus, s/p CRUSHER SCREEN REPAIRER shunt; chiari type 2 malformation, syringomyelia, neurogenic bowel and bladder. At : [facility], aplasia cutis of scalp (pinpoint), R knee contracture, clubbed feet bilaterally, microcephaly, kyphosis. Specialist involved: Adult Spina Bifida Clinic - looking into locations/referrals Adult neurosurgery team - not needed until age 27 (currently following with Dr. Rodgers of [facility]) Adult Urology team - Dr. Joyner of [facility] Adult Sleep Medicine - referral placed Adult Orthopaedics - [facility] Ortho Resolved Problems Problem Noted Date Diagnosed Date Resolved Date Acute kidney failure, unspecified 02/10/2020 03/05/2023 Ulcer, surgical 06/07/2011 07/22/2024 Encounters Date Type Department Care Team Description 02/25/2025 10:45 AM CDT Virtual Visit [facility] [address] [address] Estrella Martinez NP Neurogenic bladder (Primary Dx); Recurrent UTI 02/25/2025 Results Follow-Up [facility] [address] [address] Rosita Velasco RN Dx: Recurrent UTI (Primary Dx) 02/24/2025 PRE VISIT [facility] [address] [address] Estrella Martinez NP Pre Visit Planning - Done 02/22/2025 2:30 PM CDT Therapy Visit [address] [address] Eliza Carty OT 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, initial encounter (Primary Dx); Right wrist pain 02/22/2025 MyC Medical Advice [address] [address] Eliza Carty OT 02/22/2025 Travel 02/21/2025 11:05 AM CDT Lab [facility] [address] [place] [address] Recurrent UTI; Kidney stone 02/21/2025 Travel 02/17/2025 Travel 02/16/2025 Telephone [facility] [address] [address] Carlos Joyner MD Appointment (TE on 02/08/25 instructing Pt to schedule with Elissa Martinez CNP. Court Transcriber does not have access to this provider. ) 02/15/2025 10:00 AM CDT Therapy Visit [address] [address] Eliza Carty OT 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, initial encounter (Primary Dx); Right wrist pain 02/15/2025 Travel 02/11/2025 Travel 02/08/2025 3:00 PM CDT Therapy Visit [address] [address] Cadyen Bejarano MD Burch, Sophia, OT 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, initial encounter (Primary Dx); Right wrist pain 02/08/2025 Travel 02/08/2025 MyC Medical Advice [facility] [address] [address] Cayden Bejarano MD 02/04/2025 Travel 02/03/2025 Telephone [facility] [address] [phone] Carlos Joyner MD Prior Auth - Medication (Acetohydroxamic Acid (LITHOSTAT) 250 MG TABS - [place] APPROVED) 02/03/2025 Telephone [facility] [address] [phone] Carlos Joyner MD 02/03/2025 Telephone [place] [id number] [place] [address] Heladio Willoughby MD Forms ([place] Outpatient/Thoratic Spina bifida- [facility]/) 02/01/2025 10:05 AM CDT Ancillary Procedure [facility] [address] [place] [address] Cayden Bejarano MD Right wrist pain 02/01/2025 10:00 AM CDT Office Visit [address] [address] Heladio Willoughby MD Yeo, Albert, MD 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, initial encounter (Primary Dx); Right wrist pain 02/01/2025 Travel 01/28/2025 9:30 AM CDT Office Visit [facility] [address] [place] [address] Heladio Willoughby MD Visit for wound check (Primary Dx); Pressure injury of back, stage 2 (H); Paraplegia (H); Right wrist pain 01/28/2025 Telephone [facility] [address] [place] [address] Unknown, MD Ronak 01/28/2025 Travel 01/27/2025 Travel 01/26/2025 Travel 01/25/2025 10:45 AM CDT Virtual Visit [facility] [address] [place] [phone] Carlos Joyner MD Recurrent UTI (Primary Dx); Kidney stone 01/25/2025 Telephone [facility] [address] [place] [address] Unknown Referral 01/25/2025 PRE VISIT [facility] [address] [place] [phone] Rosita Velasco RN Pre Visit Planning - Done 01/24/[address] [phone] Heladio Willoughby MD 01/19/2025 11:30 AM CDT Office Visit [address] [phone] Heladio Willoughby MD IUD check up (Primary Dx); Pressure injury of left lower back, stage 2 (H); History of pressure injury of skin; Paraplegia (H); Right wrist pain 01/18/2025 10:07 AM CDT - 01/18/2025 11:59 PM CDT Hospital Encounter [facility] [address] [place] [address] Mary Jo Pineda MD Bilateral nephrolithiasis Discharge Disposition: Home or Self Care 01/18/2025 Travel 01/17/2025 Travel 01/12/2025 5:30 PM CDT Virtual Visit [facility] [address] [place] [phone] Belen Arellano APRN PHOTO JOURNALIST Open wound (Primary Dx); Paraplegia (H); Thoracic spina bifida, unspecified hydrocephalus presence (H) 01/12/2025 Results Follow-Up [facility] [place] [address] [place] [phone] Sugey Mccoy APRN PHOTO JOURNALIST Subj: Sleep study results 01/03/2025 8:00 PM CDT Therapy Visit [facility] [address] [facility] [address] [place] [phone] Sugey Mccoy APRN PHOTO JOURNALIST Snoring; Daytime sleepiness; Thoracic spina bifida, unspecified hydrocephalus presence (H); Chiari malformation type II (H) 01/03/2025 Travel 12/29/2024 Travel 12/20/2024 Medical Correspondence [facility] Information [address] [place] [address] Scan, Non-Provider 12/17/2024 Medical Correspondence [facility] Information [address] [place] [address] Scan, Non-Provider 12/17/2024 Telephone [facility] [address] [place] [phone] Heladio Willoughby MD Forms ([employer]/Standard written Order/Medicare Power mobility) 12/17/2024 MyC Medical Advice [facility] [address] [place] [phone] Heladio Willoughby MD 12/17/2024 Telephone [facility] [address] [place] [phone] Heladio Willoughby MD Forms (Justification For Durable medical Equipment/Mobility Assistance / Electric Wheelchair/) 12/14/2024 11:00 AM CDT Office Visit [facility] [address] [place] [phone] Heladio Willoughby MD Encounter for insertion of intrauterine contraceptive device (Primary Dx) 12/14/2024 Telephone [facility] [address] [place] [phone] Heladio Willoughby MD Forms ([facility]/Rehabilitati on Services) 12/14/2024 Travel 12/09/2024 Travel 12/06/2024 Telephone [facility] [address] [place] [phone] Carlos Joyner MD Symptoms 12/06/2024 MyC Medical Advice [facility] [address] [phone] Rosita Velasco RN 12/02/2024 11:09 AM CDT Anesthesia Event [facility] [address] [place] [phone] Suad Jackson MD Roethke, Lindsay, MD 12/02/2024 10:20 AM CDT - 12/02/2024 1:45 PM CDT Surgery [facility] [address] [place] [phone] Carlos Joyner MD Left Percutaneous Nephrolithotomy with left ureteral stent placement 12/02/2024 7:39 AM CDT - 12/04/2024 5:34 PM CDT Hospital Encounter [facility] [address] [facility], [facility] [place] [address] Carlos Joyner MD Recurrent cystitis (Primary Dx); Bilateral nephrolithiasis Discharge Disposition: Home or Self Care 12/02/2024 Travel 11/30/2024 Medical Correspondence [facility] Information Management [address] [facility] [address] [place] [address] Scan, Non-Provider 11/30/2024 Travel 11/29/[address] [phone] Heladio Willoughby MD Forms (DME Incontinence Supplies- [facility]) from Last 3 Months Immunizations Immunization Administration Dates Next Due DTAP (<7y) 01/18/2008,05/06/2005 DTaP, Unspecified 01/16/2015 DTaP/HepB/IPV 05/27/2003,03/21/2003,2002 Flu, Unspecified 02/26/2016,02/21/2009, 4 [id number] Novel Flu 03/18/2009 [id number] Novel Flu P-free 03/30/2004,05/27/2003 HIB (PRP-T) 05/27/2003,03/21/2003,2002 [...] Father Morbid Obesity Father Bipolar Disorder Mother Mental Illness Mother Relation Status Comments Father Mother Social [...] Answer Date Recorded PHQ-2 Score 0 09/13/2024 [facility] - Occupational [...] Mass Index 28.35 01/28/2025 9:26 AM CDT Plan of Treatment Upcoming Encounters Date Type Department Care Team (Late st Contact Info) Description 03/03/2025 9:00 AM CDT Office Visit [facility] [address] [place] [address] Jadon Floyd MD [address] [place] [address] 03/23/2025 12:45 PM CDT Appointment [facility] [address] [place] [address] [place] [address] [place] [address] 03/23/2025 1:30 PM CDT Hospital Encounter [facility] [address] [place] [address] [place] [address] [place] [address] 03/25/2025 10:20 AM CDT Virtual Visit [facility] [address] [place] [address] [address] [place] [address] [place] [address] [place] [address] 04/04/2025 12:00 PM COMPUTER GRAPHICS ILLUSTRATOR Office Visit [facility] [address] [phone] Sugey Mccoy APRN [address] [address] 05/30/2025 10:20 AM COMPUTER GRAPHICS ILLUSTRATOR Appointment [facility] [address] [facility] [address] [place] [phone] Carlos Joyner MD [address] [place] [address] 05/31/2025 2:00 PM COMPUTER GRAPHICS ILLUSTRATOR Virtual Visit [facility] [address] 4th [place] [phone] Carlos Joyner MD [address] [place] [address] 07/25/2025 11:00 AM COMPUTER GRAPHICS ILLUSTRATOR Office Visit [facility] [address] [facility] [place] [address] [place] [address] [address] [place] [address] Health Maintenance Due Date Last Done Comments ANNUAL REVIEW OF HM ORDERS 2002 MENINGITIS B VACCINE (1 of 2 - Standard) 2018 DTAP/TDAP/TD VACCINE (8 - Td or Tdap) 01/16/2025 01/16/2015, 01/16/2015, 01/18/2008, Additional history exists COVID-19 VACCINE ( season) 2025 04/14/2024, 03/21/2023, 05/02/2022, Additional history exists INFLUENZA VACCINE (#1) 2025 , 05/02/2022, 05/02/2022, Additional history exists MEDICARE ANNUAL WELLNESS VISIT 07/21/2025 07/21/2024, 04/16/2023 PAP 09/14/2027 09/13/2024 CHLAMYDIA SCREENING 07/15/2028 Postpone d from 2002 (Patient Request) ADVANCE CARE PLANNING 11/18/2029 11/18/2024 , 04/23/2023, 04/18/2023, Additional history exists HEPATITIS C SCREENING 04/16/2043 Postpo florentin from 2020 (Other) HIV SCREENING 04/16/2043 Postponed from 2017 (Other) ZOSTER VACCINE (1 of 2) 2052 HEPATITIS B VACCINE Completed 05/27/2003, 03/21/2003, 2002 PNEUMOCOCCAL VACCINE: PEDIATRICS (0 to 5 YEARS) AND AT-RISK PATIENTS (6 to 49 YEARS) Aged Out 05/27/2003, 03/21/2003, 2002 No longer eligible based on patient's age to complete this topic MENINGITIS VACCINE Completed 06/17/2019, 01/16/2015 HPV VACCINE Completed 04/16/2023, 05/27, 12/18/2017 PHQ-2 (once per calendar year) Completed 09/13/2024, 09/08/2024, 06/24/2023, Additional history exists Medical Devices Implanted Type Area Clinical Informatics Director Device Identifier Shelf Expiration Date Model / Serial / Lot Pbx Wire Chief Shunt Shunt [id number] / / [id number] Description:Per note, Codmendel Certas, needs model # Stent Ureteral Percuflex Plus [id number] - [id number] Implanted:Qty: 1 on 11/12/2021 by Carlos Joyner MD at [facility] Stent Right: Abdomen [employer] [id number] 12/26/2022 [id number] / [id number] Stent Ureteral Percuflex Plus [id number] - [id number] Implanted:Qty: 1 on 12/02/2024 by Carlos Joyner MD at [facility] Stent Left: Ureter [employer] [id number] 06/03/2027 [id number] / / [id number] Stent Ureteral Percuflex Plus [id number] - [id number] Implanted:Qty: 1 on 12/02/2024 by Carlos Joyner MD at [facility] Stent Right: Ureter [employer] [id number] 04/13/2027 [id number] / [id number] Ureteral Catheter 5 Bangladeshi Implanted:Qty: 1 on 03/31/2023 by Elizabeth Jacobsen MD at [facility] Right: Ureter 02/02/2026 [id number] / / [id number] Description:5 armenian Uretera l catheter used as a stent in right ureter 5 Bangladeshi Open Ended Catheter Implanted:Qty: 1 on 03/31/2023 by Elizabeth Jacobsen MD at [facility] Left: Ureter 02/19/2026 [id number] / / [id number] Explanted Type Area Clinical Informatics Director Device Identifier Shelf Expiration Date Model / Serial / Lot Stent Ureteral Percuflex Plus [id number] - [id number] Implanted:Qty: 1 on 05/10/2021 by Carlos Joyner MD at [facility] Explanted:Qty: 1 on 08/09/2021 by Jane Gomez MD at [facility] Stent Right: Urethra [employer] 06/14/2022 [id number] Description:Ureter Stent Ureteral Percuflex Plus [id number] - [id number] Implanted:Qty: 1 on 05/10/2021 by Carlos Joyner MD at [facility] Explanted:Qty: 1 on 08/09/2021 by Jane Gomez MD at [facility] Stent Left: Urethra [employer] 07/25/2022 [id number] Stent Ureteral Percuflex Plus [id number] - [id number] Implanted:Qty: 1 on 08/09/2021 by Jane Gomez MD at [facility] Explanted:Qty: 1 on 11/12/2021 at [facility] Stent Right: Ureter [employer] 02/29/2024 [id number] Stent Ureteral Percuflex Plus [id number] - [id number] Implanted:Qty: 1 on 08/09/2021 by Jane Gomez MD at [facility] Explanted:Qty: 1 on 11/12/2021 at [facility] Stent Right: Ureter [employer] 02/29/2024 [id number] 5 Fr X 22cm Ureteral Stent Explanted:Qty: 1 on 02/07/2020 by Carlos Joyner MD at [facility] COOK 5 Fr X 22cm Ureteral Stent Explanted:Qty: 1 on 02/07/2020 by Carlos Joyner MD at [facility] COOK Procedures Procedure Name Priority Date/Time Associated Diagnosis Comments CBC WITH PLATELETS & DIFFERENTIAL Routine 02/21/2025 11:26 AM CDT Recurrent UTI Kidney stone CBC WITH PLATELETS AND DIFFERENTIAL Routine 02/21/2025 11:26 AM CDT Recurrent UTI Kidney stone HEPATIC FUNCTION PANEL Routine 02/21/2025 11:26 AM CDT Recurrent UTI Kidney stone RETICULOCYTE COUNT Routine 02/21/2025 11:26 AM CDT Recurrent UTI Kidney stone BASIC METABOLIC PANEL Routine 02/21/2025 11:26 AM CDT Recurrent UTI Kidney stone URINE CULTURE Routine 02/21/2025 11:15 AM CDT Recurrent UTI XR WRIST RIGHT G/E 3 VIEWS Routine 02/01/2025 10:10 AM CDT Right wrist pain CT ABDOMEN PELVIS W/O CONTRAST Radiology After Discharge 01/18/2025 10:39 AM CDT Bilateral nephrolithiasis GOLF COURSE EQUIPMENT OPERATOR COMPREHENSIVE SLEEP Routine 01/10/2025 7:34 AM CDT Snoring Daytime sleepiness Thoracic spina bifida, unspecified hydrocephalus presence (H) Chiari malformation type II (H) VA INSERT INTRAUTERINE DEVICE Routine 12/14/2024 12:24 PM CDT Encounter for insertion of intrauterine contraceptive device EXTRA GREEN TOP (LITHIUM HEPARIN) TUBE Routine 12/04/2024 7:22 AM CDT EXTRA TUBE Routine 12/04/2024 7:22 AM CDT CBC WITH PLATELETS STAT 12/04/2024 7: [address] ABDOMEN PELVIS W/O CONTRAST STAT 12/03/2024 11:27 AM CDT BASIC METABOLIC PANEL STAT 12/03/2024 6:44 AM CDT CBC WITH PLATELETS STAT 12/03/2024 6: 44 AM CDT BASIC METABOLIC PANEL STAT 12/02/2024 3:03 PM CDT CBC WITH PLATELETS STAT 12/02/2024 3: 03 PM CDT XR SURGERY NARA FLUORO LESS THAN 5 MIN Routine 12/02/2024 1:42 PM CDT AEROBIC BACTERIAL CULTURE ROUTINE Routine 12/02/2024 1:08 PM CDT STONE ANALYSIS Routine 12/02/2024 1:08 PM CDT ANE AIRWAY ETT PERFORMABLE Routine 12/02/2024 11:29 AM CDT CYSTOURETEROSCOPY, WITH RETROGRADE PYELOGRAM AND STENT INSERTION 12/02/2024 11:08 AM CDT Kidney stone Special Needs Tanisha Flowers LG will be on site for consent DOS, nkl 11/30/24 NEPHROLITHOTOMY, PERCUTANEOUS 12/02/2024 11:08 AM CDT Kidney stone Special Needs Tanisha Flowers LG will be on site for consent DOS, nkl 11/30/24 ABO/RH TYPE AND SCREEN STAT 12/02/2024 10:40 AM CDT TYPE AND SCREEN, ADULT STAT 12/02/2024 10:40 AM CDT GYNECOLOGIC CYTOLOGY Routine 09/13/2024 12:04 PM CDT Screening for cervical cancer from Last 3 Months or Most Recently Relevant to Health Maintenance Results * CBC with platelets and differential [...] LAB - BLOOD ORDERABLES Fin al Result [facility] [address] Lab (1st floor, no room number) [place] [id number] * Reticulocyte count (02/21/2025 [...] ORDERABLES Fin al Result Performing Organization Address City/[facility]/ZIP Co de Phone Number [facility] [address] Lab (1st floor, no room number) [place] [phone] * Hepatic panel (Albumin, ALT, AST, Bili, Alk Phos, TP) (02/21/2025 11:26 AM CDT) Protein Total 6.9 6.4 - 8.3 g/dL 02/21/2025 12:21 PM CDT [facility] Albumin 3.7 3.5 - 5.2 g/dL 02/21/2025 12:21 PM CDT LABORATORY Bilirubin Total 0.3 <=1.2 mg/dL 02/21/2025 12:21 PM CDT LABORATORY Alkaline Phosphatase 85 40 - 150 U/L 02/21/2025 12:21 PM CDT LABORATORY AST 12 0 - 45 U/L 02/21/2025 12:21 PM CDT LABORATORY ALT 11 0 - 50 U/L 02/21/2025 12:21 PM CDT LABORATORY Bilirubin Direct 0.09 0.00 - 0.30 mg/dL 02/21/2025 12:21 PM CDT LABORATORY Comment:As of 24, refer ence ranges and trending lines may vary depending on the testing location. Blood STRUCTURE OF RIGHT UPPER LIMB / Unknown Venipuncture / Unknown 02/21/2025 11:26 AM CDT 02/21/2025 11:27 AM CDT us Carlos Joyner MD LAB - BLOOD ORDERABLES Fin al Result LABORATORY [facility] [address] [facility] (1st floor, no room number) [place] [address], [facility] * (ABNORMAL) Basic metabolic panel (Ca, Cl, CO2, Creat, Gluc, K, Na, BUN) (02/21/2025 11:26 AM CDT) Only the most recent of3 resultswithin the time period is included. Sodium 140 135 - 145 mmol/L 02/21/2025 [...] - 0.95 mg/dL 02/21/2025 12:21 PM CDT [facility] LAB[facility] GFR Estimate >90 >60 mL/min/1.7 3m2 02/21/2025 12:21 PM CDT [facility] LAB[facility]ATORY Comment:eGFR calculated usin 2020 CKD-EPI equation. Calcium 9.2 8.8 - 10.4 mg/dL 02/21/2025 12:21 PM CDT [facility] LAB[facility]AT[facility] Glucose 91 70 - 99 mg/dL 02/21/2025 12:21 PM CDT [facility] LAB[facility] Blood STRUCTURE OF RIGHT UPPER LIMB / Unknown Venipuncture / Unknown 02/21/2025 11:26 AM CDT 02/21/2025 11:27 AM CDT Carlos Joyner MD LAB - BLOOD ORDERABLES Fin al Result LABORATORY [facility] [address] [facility] Lab (1st floor, no room number) [place] [address] * (ABNORMAL) Urine Culture Aerobic Bacterial (02/21/2025 11:15 AM CDT) Culture 50,000-100,000 CFU/mL Enterococcus faecalis(A) 02/24/2025 10:10 [...] and Susceptibility testing requested by Dr Joyner [phone] Multiple morphotypes present with no predominant organism. [...] MD LAB - MICRO GENERAL ORDERA BLES Edited Result - Final [facility] IDD LABORATORY [facility] Inf. Diseases Diag. Lab [address] [facility], [address] [place] [address], [facility] * XR Wrist Right G/E 3 Views (02/01/2025 10:10 AM CDT) Anatomical Region Laterality Modality Wrist, Right Wrist Right Computed Radi ography Narrative 02/01/2025 11:00 AM CDT No acute fracture, dislocation or osseous abnormalities. Cayden Bejarano MD IMG DIAGNOSTIC IMAGING ORDERABLE S Final Result * CT Abdomen Pelvis w/o Contrast (01/18/2025 10:39 AM CDT) Only the most recent of2 resultswithin the time period is included. Anatomical Region Laterality Modality Abdomen/Pelvis, SUBRAD CT [...] CT ABDOMEN PELVIS W/O CONTRAST LOCATION: [facility] DATE: 01/18/2025 INDICATION: Bilateral nephrolithiasis COMPARISON: [...] CT ABDOMEN PELVIS W/O CONTRAST LOCATION: [facility] DATE: 01/18/2025 INDICATION: Bilateral nephrolithiasis COMPARISON: [...] place. 5. Thoracolumbar posterior spinal fixation. us Onuralp Baileyun IMG CT ORDERABLES Final Result * Comprehensive Sleep Study (01/10/2025 7:34 AM CDT) GOLF COURSE EQUIPMENT OPERATOR Comprehensive Sleep [facility] 01/10/2025 7:34 AM CDT Narrative Procedure Note Teja Blum MD - 01/03/2025 8:00 PM CDT Images from the original note were not included. SLEEP STUDY INTERPRETATION DIAGNOSTIC POLYSOMNOGRAPHY REPORT Patient: LAINA CARNES Date of : 2000 Study Date: 01/03/2025 Referring Provider: No Referring MD Ordering Provider: NESTOR Rahman CNP, Colie Indications for Polysomnography: The patient is a 24 year old Female whois 4' 10 and weighs 155.0 lbs. Her BMI is 32.5, [place] sleepiness scale6 and neck circumference is 38 cm. A diagnostic polysomnogram wasperformed to evaluate for sleep apnea. Polysomnogram Data: A full night polysomnogram recorded the standardphysiologic parameters including EEG, EOG, EMG, ECG, nasal and oralairflow. Respiratory parameters of chest and abdominal movements wererecorded with respiratory inductance plethysmography. Oxygen saturationwas recorded by pulse oximetry. Hypopnea scoring rule used: 1B 4%. Sleep Architecture: Fragmented sleep with reduced sleep efficiency. The total recording time of the polysomnogram was 466.6 minutes. The totalsleep time was 366.0 minutes. Sleep latency was increased at 69.2 minuteswithout the use of a sleep aid. REM latency was 127.5 minutes. Arousalindex was increased at 18.4 arousals per hour. Sleep efficiency wasdecreased at 78.4%. Wake after sleep onset was 31.5 minutes. The patientspent 6.4% of total sleep time in Stage N1, 48.5% in Stage N2, 14.8% inStage N3, and 30.3% in REM. Time in REM supine was 111.0 minutes. Respiration: Events ? The polysomnogram revealed a presence of 2obstructive, 2 central, and - mixed apneas resulting in an apnea index of0.7 events per hour. There were 34 obstructive hypopneas and - centralhypopneas resulting in an obstructive hypopnea index of 5.6 and centralhypopnea index of - events per hour. The combined apnea/hypopnea index was6.2 events per hour (central apnea/hypopnea index was 0.3 events perhour). The REM AHI was 14.6 events per hour. The supine AHI was 6.2 eventsper hour. The RERA index was 3.1 events per hour. The RDI was 9.3 eventsper hour. Snoring - was reported as mild. Respiratory rate and pattern - was notable for normal respiratory rate andpattern. Sustained Sleep Associated Hypoventilation - Transcutaneous carbon dioxidemonitoring was used, however significant hypoventilation was not presentwith a maximum change from 39.7 to 46.6 mmHg and 0 minutes at or greaterthan 55 mmHg. Sleep Associated Hypoxemia - (Greater than 5 minutes O2 sat at or below88%) was not present. Baseline oxygen saturation was 94.5%. Lowest oxygensaturation was 76.0%. Time spent less than or equal to 88% was 1.4minutes. Time spent less than or equal to 89% was 1.9 minutes. Movement Activity: Negative for movement abnormalities. Periodic Limb Activity - There were - PLMs during the entire study. ThePLM index was - movements per hour. The PLM Arousal Index was - perhour. REM EMG Activity - Excessive transient/sustained muscle activity was notpresent. Nocturnal Behavior - Abnormal sleep related behaviors were not notedduring/arising out of NREM / REM sleep. Bruxism - None apparent. Cardiac Summary: Sinus arrythmia. The average pulse rate was 69.3 bpm. The minimum pulse rate was 48.0 bpmwhile the maximum pulse rate was 112.0 bpm. Assessment: This sleep study shows mild degree of obstructive sleep apnea withassociated oxygen desaturations and sleep fragmentation. Sleep apneaevents were primarily REM sleep related. Of note, patient sleptexclusively in the supine position. TcCO2 monitoring did not registerhypoventilation. Recommendations: If treatment of mild obstructive sleep apnea is clinically indicated,therapy options can include the following. Patient may be a candidate for dental appliance through referral to SleepDentistry for the treatment of obstructive sleep apnea. If there is excessive daytime sleepiness or other qualifying medicalcomorbidity, treatment could be empirically initiated with Auto?titratingPAP therapy with a range of 5 to 15 cmH2O. Recommend clinical follow upwith sleep management team. Suggest optimizing sleep schedule and avoiding sleep deprivation. 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 Electronically Signed By: Teja Blum MD 01/09/2025 us Sugey Mccoy AIR CONDITIONING TECHNICIAN PHOTO JOURNALIST PROCEDURES Final Re sult [facility] * Extra Green Top ([place] Heparin) Tube (12/04/2024 7:22 AM CDT) Pathologist [facility] Hold Specimen [facility] 12/04/2024 9:01 AM CDT UR LABORATORY Blood STRUCTURE OF RIGHT HAND / Unknown Venipuncture / Unknown 12/04/2024 7:22 AM CDT 12/04/2024 7:55 AM CDT us Carlos Joyner MD LAB - BLOOD ORDERABLES Fin al Result UR LABORATORY [facility], [id number] [facility], [address] [place] [address], [place] * (ABNORMAL) CBC with platelets (12/04/2024 7:22 AM CDT) Only the most recent of3 resultswithin the time period is included. WBC Count 11.2(H) 4.0 - 11.0 10e3/uL 12/04/2024 8:03 AM CDT UR LABORATORY RBC Count 3.99 3.80 - 5.20 10e6/uL 12/04/2024 8:03 AM CDT UR LABORATORY Hemoglobin 12.5 11.7 - 15.7 g/dL 12/04/2024 8:03 AM CDT UR LABORATORY Hematocrit 37.2 35.0 - 47.0 % 12/04/2024 8:03 AM CDT UR LABORATORY MCV 93 78 - 100 fL 12/04/2024 8:03 AM CDT UR LABORATORY MCH 31.3 26.5 - 33.0 pg 12/04/2024 8:03 AM CDT UR LABORATORY MCHC 33.6 31.5 - 36.5 g/dL 12/04/2024 8:03 AM CDT UR LABORATORY RDW 12.9 10.0 - 15.0 % 12/04/2024 8:03 AM CDT UR LABORATORY Platelet Count 163 150 - 450 10e3/uL 12/04/2024 8:03 AM CDT UR LABORATORY Blood STRUCTURE OF RIGHT HAND / Unknown Venipuncture / Unknown 12/04/2024 7:22 AM CDT 12/04/2024 7:53 AM CDT us Rashawn Dove MD LAB - BLOOD ORDERABLES Final Res ult UR LABORATORY [facility] [address] [facility], [address] [place] [address], [facility] * XR Surgery NARA L/T 5 Min Fluoro (12/02/2024 1:42 PM CDT) Narrative [facility] - 12/02/2024 1:44 PM CDT This exam was marked as non-reportable because it will not be read by a radiologist or a [facility] non-radiologist provider. us Carlos Joyner MD IMG DIAGNOSTIC IMAGING ORD ERABLES Final Result [facility] * (ABNORMAL) Calculus/Stone Aerobic Bacterial Culture Routine (12/02/2024 1:08 PM CDT) Culture 1+ Enterococcus faecalis(A) 12/04/2024 9:05 PM CDT [facility] IDD LABORATORY Culture 1+ Normal shyam 9:05 PM CDT [facility] ID[facility] LABORATORY Calculus/Stone LEFT KIDNEY STRUCTURE / Unknown Non-blood Collection / Unknown 12/02/2024 1:08 PM CDT 12/02/2024 1:35 PM CDT Narrative Organism Antibiotic Method Susceptibility Enterococcus faecalis Ampicillin LINDA <=2 ug/mL: Susceptible Enterococcus faecalis Gentamicin Synergy LINDA Resistant ug/mL Comment:High level g entamicin resistance was found, and this is predictive of resistance to tobramycin and amikacin. Enterococcus faecalis Vancomycin LINDA 1 ug/mL: Susceptible Carlos Joyner MD LAB - MICRO GENERAL ORDERA BLES Final Result [facility] ID[facility] LABORATORY [facility] Inf. Diseases Diag. Lab [address] [facility], [address] [place], [place] [address] * Stone analysis (12/02/2024 1:08 PM CDT) Stone Mass 975 mg 12/06/2024 10:07 PM CDT Prior Knowledge Calculi Description See Note 12/06/2024 10:07 PM CDT Prior Knowledge Comment: Specimen consists of numerous brown and jacobsen calculi fragments. The total weight is 975 mg. Stone Composition See Note 025 10:07 PM CDT Prior Knowledge Comment: Calculi composed primarily of calcium phosphate (hydroxy- and carbonate- apatite). INTERPRETIVE INFORMATION: Calculi (Stone) analysis Calculi are the products of physiological processes that yield crystalline compounds in a matrix of biological compounds and blood. Matrix components are not reported. The clinically significant crystalline components identified in calculi specimens are reported. Gross description may not be consistent with composition determined by FTIR analysis. Performed By: [facility] [address] [place] [address] Ground Crew Chief: Roosevelt Mcghee MD, PhD CLIA Number: [id number] Calculus/Stone LEFT KIDNEY STRUCTURE / Unknown Non-blood Collection / Unknown 12/02/2024 1:08 PM CDT 12/02/2024 1:35 PM CDT Carlos Joyner MD LAB - BODY FLUIDS ORDERABL ES Final Result [facility] [address] [place] [address], [facility] [phone] * ANE AIRWAY ETT PERFORMABLE (12/02/2024 11:29 AM CDT) Narrative Brenna Luna DO - 12/02/2024 11:29 AM CDT Brenna Luna DO 12/02/2024 12:34 PM Airway Patient location during procedure: OR Procedure Start/Stop Times: 12/02/2024 11:29 AM Staff - Anesthesiologist: Suad Jackson MD Resident/Fellow: Sherin Hoyt MD Performed By: residentIndications and Patient Condition Indications for airway management: horacio-procedural Induction type:intravenous Mask difficulty assessment: 1 - vent by mask Final Airway Details Final airway type: endotracheal airway Successful airway: ETT - single and Oral Endotracheal Airway Details ETT size (mm): 7.0 Cuffed: yes Successful intubation technique: video laryngoscopy VL Blade Size: MAC 3 Grade View of Cords: 1 Adjucts: stylet Position: Right Measured from: lips Secured at (cm): 22 Bite block used: None Post intubation assessment Placement verified by: capnometry and chest rise Number of attempts at approach: 1 Number of other approaches attempted: 0 Secured with: tape Ease of procedure: easy Dentition: Intact and Unchanged Medication(s) Administered Medication Administration Time: 12/02/2024 11:29 AM Suad Jackson MD [facility] Final Result * Adult Type and Screen (12/02/2024 10:40 AM CDT) ABO/RH(D) O POS 12/02/2024 10:25 AM CDT UR BLOOD BANK Antibody Screen Negative Negative 12/02/2024 10:25 AM CDT UR BLOOD BANK SPECIMEN EXPIRATION DATE 12/05/2024 11:59:00 PM CDT 12/02/2024 10:25 AM CDT UR BLOOD BANK Blood INTRAVENOUS PERIPHERAL ROUTE / Unknown Venipuncture / Unknown 12/02/2024 10:40 AM CDT 12/02/2024 10:46 AM CDT Carlos Joyner MD LAB - BLOOD BANK TEST ORDE R Final Result UR BLOOD BANK [facility] Blood Components Lab [address] [facility] [place] [address] * Pap Screen Only - Recommended Age 21 - 24 Years (09/13/2024 12:04 PM CDT) Interpretation Negative for Intraepithelial Lesion or Malignancy (NILM) 2024 1:59 PM CDT SPECIALTY LABS at 1359 CDT Comment Papanicolaou Test Limitations: Cervical cytology is [...] component of this testing was completed at [facility]. Stain controls for all stains resulted within this report have been reviewed and show appropriate reactivity. 2024 1:59 PM CDT SPECIALTY LABS Brushing ENDOCERVICAL STRUCTURE / Unknown Non-blood Collection / Unknown 09/13/2024 12:04 PM CDT 09/13/2024 12:07 PM CDT us Heladio COLLINS - JOHN GALLEGOS Final Result [facility] [address] [facility] [address], [address] [address], [facility] from Last 3 Months or Most Recently Relevant to Health Maintenance [place] Advance Directives For more information, please contact: [phone] Documents on File Type Date Recorded Patient Burn Crew Member Expl anation Advance Directives and Living Will [...] on File) Date Activated Date Inactivated Comments 12/02/2024 2:19 PM 12/04/2024 7:39 PM All basic an d advanced life-sustaining interventions are performed as appropriate Question Answer Comments Code status determined by: Discussion with patie nt/ legal decision maker * Full Code Date Activated Date Inactivated Comments 04/02/2023 8:30 [...] Discussion with patie nt/ legal decision maker Care Teams Industrial Relations Representative Relationship Specialty [place] [address] [place] [address] PCP - General 03/05/23 Carlos Joyner MD [address] [place], [place] [address] Urology 12/09/19 Jadon Murray MD [facility] [address] [facility] [address] [place] [address] Referring Physician Pediatric Surgery 12/09/19 Maru Villagomez, RN Registered Nurse 12/10/19 Ang Slade MD [address] [place] [address] [address] [place], [place] [phone] Urology 04/24/20 Carlos Joyner MD [address] [place] [address] Assigned Surgical Provider 12/24/20 Ang Slade MD [address] [place] [address] [id number] MD Urology 12/18/22 Lakshmi Wilhelm PA-C [address] [place] [address] [id number] Physician Property Assessment Monitor Urology 02/03/23 [place] [address] [place] [address] Assigned PCP 02/06/23 Alissa Perez PA-C [address] [place] [address] [id number] Physician Property Assessment Monitor Surgery 09/04/23 Lakshmi Wilhelm PA-C [address] [place] [address] Physician Property Assessment Monitor Urology 09/16/23 Carlos Joyner MD [address] [place] [address] Urology 01/26/25 Jadon Floyd MD [address] [place] [address] 381985 Physician Physical Medicine and Rehabilitation 01/31/25 [place] [address] [place] [address] Assigned Musculoskeletal Provider 02/15/25 Tanisha Marlow [address] [facility] [address] 03/30/24
--- OUTSIDE RECORDS SUMMARY | 2025-02-26 23:20 | XMS_ITS | Encounter Summary ---
Author Organization [facility] Address [address] [place] [address] Care Team Providers Care Purchasing Intern Name Role Phone Carlos Joyner MD Unavailable [phone] Jadon Murray MD Unavailable [phone] Maru Villagomez RN Unavailable Unavailable Ang Slade MD Unavailable [phone] Carlos Joyner MD Unavailable [phone] Ang Slade MD Unavailable [phone] Lakshmi Wilhelm-C Unavailable [phone] Heladio Willoughby MD Primary Care Provider [phone] Heladio Willoughby MD Unavailable Alissa Perez PA-C Unavailable [phone] Lakshmi Wilhelm-C Unavailable [phone] Aidee Valero PA-C Unavailable [phone] Carlos Joyner MD Unavailable [phone] Jadon Floyd MD Unavailable [phone] Cayden Bejarano MD Unavailable Encounter Details Date Type Department Care Team (Late st Contact Info) Description 09/08/2023 [facility] [address] [address] Luis M-Bhavna Milligan Social History Tobacco Use Types Packs/Day Years [...] [facility] [address] [address] Jadon Floyd MD [address] [place] [address] [phone] 03/23/2025 12:45 PM CDT Appointment [facility] [address] [facility] [address] [place] [phone] [place] [address] [place] [address] 03/23/2025 1:30 PM CDT Hospital Encounter [facility] [address] [facility] [address] [place] [phone] [place] [id number] [place] [address] [address] [place] [address] 03/25/2025 10:20 AM CDT Virtual Visit [facility] Sports Medicine [facility] [phone] [place] [address] [address] [place] [address] [place] [address] [place] [address] 04/04/2025 12:00 PM CREATIVE ART DIRECTOR Office Visit [facility] Sleep [address] [phone] Sugey Mccoy, NESTOR [address] [address] 05/30/2025 10:20 AM CREATIVE ART DIRECTOR Appointment [facility] [address] [facility] [address] [place] [phone] Carlos Joyner MD [address] [place] [address] [phone] 05/31/2025 2:00 PM CREATIVE ART DIRECTOR Virtual Visit [facility] Urology Clinic [address] 4th [place] [phone] Carlos Joyner MD [address] [place] [address] 07/25/2025 11:00 AM CREATIVE ART DIRECTOR Office Visit [facility] [address] [phone] [place] [address] [address] [place] [phone] documented as of this encounter Visit Diagnoses Not on filedocumented in this encounter Care Teams Purchasing Intern Relationship Specialty Start [place] [address] [address] [id number] PCP - General 03/05/23 Carlos Joyner MD [address] [place] [address] Urology 12/09/19 Jadon Murray MD [facility] [address] [facility] [address] [place] [address] Referring Physician Pediatric Surgery 12/09/19 Maru Villagomez, RN Registered Nurse 12/10/19 Ang Slade MD [address] [place] [address] Urology 04/24/20 Carlos Joyner MD [address] [place] [address] Assigned Surgical Provider 12/24/20 Ang Slade MD [address] [place] [address] Urology 12/18/22 Lakshmi Wilhelm PA-C [address] [place] [address] Physician Valve And Regulator Repairer Urology 02/03/23 [place] [address] [address] Assigned PCP 02/06/23 Alissa Perez PA-C [address] [place] [address] Physician Valve And Regulator Repairer Surgery 09/04/23 Lakshmi Wilhelm PA-C [address] [place] [address] Physician Valve And Regulator Repairer Urology 09/16/23 Aidee Valero PA-C [address] [place] [address] 116205 Assigned Musculoskeletal Provider 04/17/24 02/14/25 Carlos Joyner MD [address] [place] [address] [phone] Urology 01/26/25 Jadon Floyd MD [address] [place] [address] Physician Physical Medicine and Rehabilitation 01/31/25 [place] [address] [place] [address] Assigned Musculoskeletal Provider 02/15/25 Tanisha Marlow [facility] [address] 03/30/24 documented as of this encounter
--- OUTSIDE RECORDS SUMMARY | 2025-02-26 23:20 | XMS_ITS | Encounter Summary ---
Author Organization [employer] Address [address] [place] [address]97 Care Team Providers Care Cascade Operator Name Role Phone Carlos Joyner MD Unavailable +[phone] Jadon Murray MD Unavailable +[phone] Maru Villagomez RN Unavailable Unavailable Ang Slade MD Unavailable +[phone] Carlos Joyner MD Unavailable +[phone] Ang Slade MD Unavailable +[phone] Lakshmi Wilhelm-C Unavailable +[phone] Heladio Willoughby MD Primary Care Provider +[phone] Heladio Willoughby MD Unavailable Alissa Perez PA-C Unavailable [phone] Lakshmi Wilhelm-C Unavailable +[phone] Aidee Valero PA-C Unavailable +[phone] Carlos Joyner MD Unavailable +[phone] Jadon Floyd MD Unavailable +[phone] Cayden Bejarano MD Unavailable Encounter Details Date Type Department Care Team (Late st Contact Info) Description 09/18/2023 [facility] Urology [place] [id number] [facility] 4th [place] [address] aCrlos Joyner MD [address] [place] [address] 143305 Social History Tobacco Use Types Packs/Day Years [...] Description 03/03/2025 9:00 AM CDT Office Visit [facility] [address] 3rd [place] [address] Jadon Floyd MD [address] [place] [address] 03/23/2025 12:45 PM CDT Appointment [facility] [address] [facility] [address] [place] [address] [place] [address] [place] [address] 03/23/2025 1:30 PM CDT Hospital Encounter [facility] [address] [facility] [address] [place] [address] [place] [address] [place] [address] 03/25/2025 10:20 AM CDT Virtual Visit [facility] Sports Medicine [facility] [address] [place] [address] [address] [place] [address] [place] [address] [place] [address] 04/04/2025 12:00 PM GROOVER OPERATOR Office Visit [facility] [address] [place] [phone] Sugey Mccoy, DIRECTOR INSURANCE [address] [address] 05/30/2025 10:20 AM GROOVER OPERATOR Appointment [facility] [address] [facility] [address] [place] [address] Carlos Joyner MD [address] [place] [address] 592835 05/31/2025 2:00 PM GROOVER OPERATOR Virtual Visit [facility] Urology [facility] [address] 4th [place] [address] Carlos Joyner MD 909 [place] [address] 07/25/2025 11:00 AM GROOVER OPERATOR Office Visit [facility] [address] [place] [address] [place] [address] [place] [place] [address], [place] [phone] documented as of this encounter Visit Diagnoses Not on filedocumented in this encounter Care Teams Cascade Operator Relationship Specialty Start [place] [address] [address] [place], [place] [phone] PCP - General 03/05/23 Carlos Joyner MD [address] [place] [address] Urology 12/09/19 Jadon Murray MD [facility] [address] [address] Referring Physician Pediatric Surgery 12/09/19 Maru Villagomez, OTILIO Registered Nurse 12/10/19 Ang Slade MD [address] [place] [address] 12434 Urology 04/24/20 Carlos Joyner MD [address] [place] [address] 31952 Assigned Surgical Provider 12/24/20 Ang Slade MD [address] [place] [address] 69366 Urology 12/18/22 Lakshmi Wilhelm PA-C [address] [place] [address]107 Physician Centrifugal Casting Machine Tender Urology 02/03/23 [place] [address] [place] [address] Assigned PCP 02/06/23 Alissa Perez PA-C [address] [place] [address] Physician Centrifugal Casting Machine Tender Surgery 09/04/23 Lakshmi Wilhelm PA-C [address] [place] [address] 10123 Physician Centrifugal Casting Machine Tender Urology 09/16/23 Aidee Valero PA-C [address] [place] [address] 18990 Assigned Musculoskeletal Provider 04/17/24 02/14/25 Carlos Joyner MD [address] [place] [address] Urology 01/26/25 Jadon Floyd MD [address] [place] [address] 746735 Physician Physical Medicine and Rehabilitation 01/31/25 [place] [address] [place] [address] Assigned Musculoskeletal Provider 02/15/25 Tanisha Marlow 4120 [facility] [address] 03/30/24 documented as of this encounter
--- OUTSIDE RECORDS SUMMARY | 2025-02-26 23:20 | XMS_ITS | Encounter Summary ---
Author Organization [place] Address [address] [place] [address] Care Team Providers Care Self Defense Instructor Name Role Phone Carlos Joyner MD Unavailable +[phone] Jadon Murray MD Unavailable +[phone] Maru Villagomez RN Unavailable Unavailable Ignacia Duran MD Primary Care Provider [phone] Ang Slade MD Unavailable +[phone] Carlos Joyner MD Unavailable +[phone] Annalise Orta PA-C Unavailable +[phone] Ang Slade MD Unavailable +[phone] Lakshmi Wilhelm-C Unavailable +[phone] Heladio Willoughby MD Primary Care Provider [phone] Heladio Willoughby MD Unavailable Alissa Perez PA-C Unavailable [phone] LaLakshmi morales-C Unavailable +[phone] Aidee Valero PA-C Unavailable +[phone] Carlos Joyner MD Unavailable +[phone] Jadon Floyd MD Unavailable [phone] Cayden Bejarano MD Unavailable Encounter Details Date Type Department Care Team (Late st Contact Info) Description 10/01/2021 MyC Medical Advice [facility] U[facility] Clinic [address] 4th [place] [address] Carlos Joyner MD [address] [place] [address]369 Social History Tobacco Use Types Packs/Day Years [...] Upcoming Encounters Date Type Department Care Team ([facility] Contact Info) Description 03/03/2025 9:00 AM CDT Office Visit [facility] [address] [phone] Jadon Floyd MD [address] [place] [address] 03/23/2025 12:45 PM CDT Appointment [facility] [address] [facility] [address] [place] [address] Cayden Bejarano MD [address] [place] [address] [address] [place] [address] 03/23/2025 1:30 PM CDT Hospital Encounter [facility] [address] [place] [phone] Cayden [place] [address] [place] [address] [address] [place] [address] 03/25/2025 10:20 AM CDT Virtual Visit [facility] Sports Medicine Clinic [place] [address] [place] [address] [place] [address] [place] [address] 04/04/2025 12:00 PM RISK SPECIALIST Office Visit [facility] [place] [address] [place] [phone] Sugey Mccoy APRN [facility] [address] [place], [place] [address]E [address] [place], [place] 7[address] 05/30/2025 10:20 AM RISK SPECIALIST Appointment [facility] [address] [facility] [address] [place] [address] Carlos Joyner MD [address] [place] [address] 103385 05/31/2025 2:00 PM RISK SPECIALIST Virtual Visit [facility] [place] [address] [place] [address] 4th [place] [phone] Carlos Joyner MD [address] [place] [address] 112885 07/25/2025 11:00 AM RISK SPECIALIST Office Visit [facility] [address] [place] [address] [place] [address] [place] [address] documented as of this encounter Visit Diagnoses Not on filedocumented in this encounter Additional Health Concerns Infection Onset Date Last Indicated Resolved Time MRSA Comment:Added from external infection. Pt has had Staph infections but never MRSA from Care everywhere chart review. Removing MRSA 9.14.23 06/17/2019 02/06/2023 9:41 AM C DT documented as of this encounter Care Teams Self Defense Instructor Relationship Specialty Start Date End Date Ignacia Duran MD PCP - General Pediatrics 01/20/20 03/04/23 [place] [address] [place] [address] PCP - General 03/05/23 Carlos Joyner MD 909 [place] [address] Urology 12/09/19 Jadon Murray MD [facility] [address] [address] Referring Physician Pediatric Surgery 12/09/19 Maru Villagomez, RN Registered Nurse 12/10/19 Ang Slade MD [address] [address] Urology 04/24/20 Carlos Joyner MD [address] [place] [address]253 Assigned Surgical Provider 12/24/20 Annalise Orta PA-C [address] [facility] [place] [address] Assigned Cancer Care Provider 05/13/21 11/01/22 Ang Slade MD 420 [facility] 394 [place] [address] Urology 12/18/22 Lakshmi Wilhelm PA-C [address] [place] [address] 36599 Physician Belt Notcher Urology 02/03/23 [place] [address] [place] [address] Assigned PCP 02/06/23 Alissa Perez PA-C [address] [place] [address] Physician Belt Notcher Surgery 09/04/23 Lakshmi Wilhelm PA-C [address] [place] [address] Physician Belt Notcher Urology 09/16/23 Aidee Valero PA-C [address] [place] [address] 13804 Assigned Musculoskeletal Provider 04/17/24 02/14/25 Carlos Joyner MD [address] [place] [address] Urology 01/26/25 Jadon Floyd MD [address] [place] [address]45 Physician Physical Medicine and Rehabilitation 01/31/25 [place] [address] [place] [address] Assigned Musculoskeletal Provider 02/15/25 Tanisha Marlow 4120 [facility] [address] 03/30/24 documented as of this encounter
--- OUTSIDE RECORDS SUMMARY | 2025-02-26 23:20 | XMS_ITS | Encounter Summary ---
Author Organization [facility] Address [address] [place] [address] Care Team Providers Care Business Services Specialist Sales Name Role Phone Carlos Joyner MD Unavailable [phone] Jadon Murray MD Unavailable [phone] Maru Villagomez RN Unavailable Unavailable Ignacia Duran MD Primary Care Provider [phone] Ang Slade MD Unavailable [phone] Carlos Joyner MD Unavailable +[phone] Annalise Orta PA-C Unavailable +[phone] Ang Slade MD Unavailable [phone] Lakshmi Wilhelm-C Unavailable [phone] Heladio Willoughby MD Primary Care Provider [phone] Heladio Willoughby MD Unavailable Alissa Perez PA-C Unavailable [phone] LaLakshmi morales-C Unavailable +[phone] Aidee Valero PA-C Unavailable +[phone] Carlos Joyner MD Unavailable +[phone] Jadon Floyd MD Unavailable [phone] Cayden Bejarano MD Unavailable Encounter Details Date Type Department Care Team (Late st Contact Info) Description 12/18/[address] [facility] Urology Clinic [address] 4th [place] [phone] Carlos Joyner MD [address] [place] [address] Social History Tobacco Use Types Packs/Day Years [...] Medical Center [facility] [address] 3rd [place] [address] Jadon Floyd MD [address] [place] [address] 03/23/2025 12:45 PM CDT Appointment [facility] [address] [facility] [address] [place] [phone] [place] [address] [address] [place] [address] 03/23/2025 1:30 PM CDT Hospital Encounter [facility] Special[facility] [address] [place] [address] [place] [address] [address] [place] [address] 03/25/2025 10:20 AM CDT Virtual Visit [facility] Sports Medicine [facility] [address] [facility] [address] [place] [address] [place] [address] [place] [address] 04/04/2025 12:00 PM NEON TUBE BENDER Office Visit [facility] [address] [facility] [place] [phone] Sugey Mccoy APRN [facility] [address] [place] [address] [address] [place] [address] 05/30/2025 10:20 AM NEON TUBE BENDER Appointment [facility] Imaging [address] [facility] [address] [place] [address] Carlos Joyner MD [address] [place] [address] 554365 05/31/2025 2:00 PM NEON TUBE BENDER Virtual Visit [facility] Urology Clinic [address] 4th [place] [address] Carlos Joyner MD [address] [place] [address] 363015 07/25/2025 11:00 AM NEON TUBE BENDER Office Visit [facility] [address] [place] [address] [place] [address] [place] [address] documented as of this encounter Visit Diagnoses Not on filedocumented in this encounter Additional Health Concerns Infection Onset Date Last Indicated Resolved Time MRSA Comment:Added from external infection. Pt has had Staph infections but never MRSA from Care everywhere chart review. Removing MRSA 9.14.06/17/2019 02/06/2023 9:41 AM C DT documented as of this encounter Care Teams Business Services Specialist Sales Relationship Specialty Start Date End Date Ignacia Duran MD PCP - General Pediatrics 01/20/20 03/04/23 [place] [address] [place] [address] PCP - General 03/05/23 Carlos Joyner MD 9 [place] [address] Urology 12/09/19 Jadon Murray MD [facility] 2530 [facility] 550 [place] [address] Referring Physician Pediatric Surgery 12/09/19 Maru Villagomez, RN Registered Nurse 12/10/19 Ang Slade MD [address] [place] [address] 394 [place], [place] 309585 Urology 04/24/20 Carlos Joyner MD [address] [place] [address] 817245 Assigned Surgical Provider 12/24/20 Annalise Orta PA-C 5200 [place] [address] Assigned Cancer Care Provider 05/13/21 11/01/22 Ang Slade MD [address] [place] [address] Urology 12/18/22 Lakshmi Wilhelm PA-C [address] [place] [address]75 Physician Telecommunication Systems Designer Urology 02/03/23 [place] [address] [place] [address] Assigned PCP 02/06/23 Alissa Perez PA-C [address] [place] [address] Physician Telecommunication Systems Designer Surgery 09/04/23 Lakshmi Wilhelm PA-C [address] [place] [address]886 Physician Telecommunication Systems Designer Urology 09/16/23 Aidee Valero PA-C [address] [place] [address] Assigned Musculoskeletal Provider 04/17/24 02/14/25 Carlos Joyner MD [address] [place] [address] Urology 01/26/25 Jadon Floyd MD [address] [place] [address] 875775 Physician Physical Medicine and Rehabilitation 01/31/25 [place] [address] [place], [place] 817[address] Assigned Musculoskeletal Provider 02/15/25 Tanisha Marlow [address] [place] [address] 03/30/24 documented as of this encounter
--- OUTSIDE RECORDS SUMMARY | 2025-02-26 23:20 | XMS_ITS | Encounter Summary ---
Author Organization [employer] Address [address] [place] [address] Care Team Providers Care Operator Catalyst Concentration Name Role Phone Carlos Joyner MD Unavailable [phone] Jadon Murray MD Unavailable +[phone] Maru Villagomez RN Unavailable Unavailable Ignacia Duran MD Primary Care Provider [phone] Ang Slade MD Unavailable +[phone] Carlos Joyner MD Unavailable +[phone] Annalise Orta PA-C Unavailable +[phone] Ang Slade MD Unavailable +[phone] Lakshmi Wilhelm-C Unavailable +[phone] Heladio Willoughby MD Primary Care Provider +[phone] Heladio Willoughby MD Unavailable Alissa Perez PA-C Unavailable [phone] LaLakshmi morales-C Unavailable +[phone] Aidee Valero PA-C Unavailable +[phone] Carlos Joyner MD Unavailable +[phone] Jadon Floyd MD Unavailable [phone] Cayden Bejarano MD Unavailable Encounter Details Date Type Department Care Team (Late st Contact Info) Description 12/05/[address] [facility] Urology Clinic [address] [phone] Janay Seo Social History Tobacco Use Types Packs/Day [...] Center Physical Medicine and Rehabilitation Clinic [address] [phone] Jadon Floyd MD [address] [place] [address] 835965 03/23/2025 12:45 PM CDT Appointment [facility] Imaging [address] [place] [address] [place] [address] [facility] [address] [place] [address] 03/23/2025 1:30 PM CDT Hospital Encounter [facility] [address] [place] [address] [place] [address] [address] [place] [address] 03/25/2025 10:20 AM CDT Virtual Visit [facility] Medicine [facility] [place] [address] [place] [address] [place] [address] [place] [address] 04/04/2025 12:00 PM INK GRINDER Office Visit [facility] [place] [address] [place] [address] Sugey Mccoy APRN [facility] [address] [place], [place] 8210[address] 05/30/2025 10:20 AM INK GRINDER Appointment [facility] [address] [place] [address] Carlos Joyner MD [address] [place] [address]645 05/31/2025 2:00 PM INK GRINDER Virtual Visit [facility] Urology Clinic [place] [address] [place] [address] 4th [place] [phone] Carlos Joyner MD [address] [place] [address] 110175 07/25/2025 11:00 AM INK GRINDER Office Visit [facility] [address] [place] [address] [place] [address] [place] [address] documented as of this encounter Visit Diagnoses Not on filedocumented in this encounter Additional Health Concerns Infection Onset Date Last Indicated Resolved Time MRSA Comment:Added from external infection. Pt has had Staph infections but never MRSA from Care everywhere chart review. Removing MRSA 9.14.23 06/17/2019 02/06/2023 9:41 AM C DT documented as of this encounter Care Teams Operator Catalyst Concentration Relationship Specialty Start Date End Date Ignacia Duran MD PCP - General Pediatrics 01/20/20 03/04/23 [place] [address] [place] [address] PCP - General 03/05/23 Carlos Joyner MD [address] [place] [address] Urology 12/09/19 Jadon Murray MD [facility] [address] [address] Referring Physician Pediatric Surgery 12/09/19 Maru Villagomez, RN Registered Nurse 12/10/19 Ang Slade MD [address] [place] [address] Urology 04/24/20 Carlos Joyner MD [address] [place] [address]7669 Assigned Surgical Provider 12/24/20 Annalise Orta PA-C 5200 [place] [address] Assigned Cancer Care Provider 05/13/21 11/01/22 Ang Slade MD [address] [address] Urology 12/18/22 Lakshmi Wilhelm PA-C [address] [place] [address]21 Physician Scout Executive Urology 02/03/23 [place] [address] [place] [address] Assigned PCP 02/06/23 Alissa Perez PA-C [address] [place] [address] 378015 Physician Scout Executive Surgery 09/04/23 Lakshmi Wilhelm PA-C [address] [place] [address] 571365 Physician Scout Executive Urology 09/16/23 Aidee Valero PA-C [address] [place] [address] 198685 Assigned Musculoskeletal Provider 04/17/24 02/14/25 Carlos Joyner MD [address] [place] [address] 980645 Urology 01/26/25 Jadon Floyd MD [address] [place] [address] 929475 Physician Physical Medicine and Rehabilitation 01/31/25 [place] [address] [place] [id number] Assigned Musculoskeletal Provider 02/15/25 Tanisha Marlow 4120 [facility] [address] 03/30/24 documented as of this encounter
--- OUTSIDE RECORDS SUMMARY | 2025-02-26 23:20 | XMS_ITS | Encounter Summary ---
Author Organization [facility] Address [address] [place] [address] Care Team Providers Care Line Supervisor Name Role Phone Carlos Joyner MD Unavailable [phone] Jadon Murray MD Unavailable [phone] Maru Villagomez RN Unavailable Unavailable Ignacia Duran MD Primary Care Provider +[phone] Ang Slade MD Unavailable +[phone] Carlos Joyner MD Unavailable +[phone] Annalise Orta PA-C Unavailable +[phone] Ang Slade MD Unavailable +[phone] Lakshmi Wilhelm-C Unavailable +[phone] Heladio Willoughby MD Primary Care Provider [phone] Heladio Willoughby MD Unavailable Alissa Perez PA-C Unavailable [phone] LaLakshmi morales-C Unavailable +[phone] Aidee Valero PA-C Unavailable +[phone] Carlos Joyner MD Unavailable +[phone] Jadon Floyd MD Unavailable [phone] Cayden Bejarano MD Unavailable Encounter Details Date Type Department Care Team (Late st Contact Info) Description 10/12/2021 MyC Medical Advice [facility] [address] [place] [address] Tanisha Coe PA-C [address] [place] [address] Social History Tobacco Use Types Packs/Day Years [...] [facility] [address] [place] [phone] Jadon Floyd MD [address] [place] [address] 683735 03/23/2025 12:45 PM CDT Appointment [facility] [address] [facility] [address] [place] [address] Cayden Bejarano MD [address] [place] [address] [address] [place] [address] 03/23/2025 1:30 PM CDT Hospital Encounter [facility] [address] [place] [address] Cayden Bejarano MD [address] [place] [address] [address] [place] [address] 03/25/2025 10:20 AM CDT Virtual Visit [facility] [address] [place] [address] [place] [address] [place] [address] 04/04/2025 12:00 PM SERIALS LIBRARIAN Office Visit [facility] [place] [address] [place] [address] Sugey Mccoy APRN [facility] [address] [place], [place] [address] [place], [place] 2[address]64 05/30/2025 10:20 AM SERIALS LIBRARIAN Appointment [facility] [address] [facility] [address] [place] [address] Carlos Joyner MD [address] [place] [address] 869125 05/31/2025 2:00 PM SERIALS LIBRARIAN Virtual Visit [facility] [place] [address] [place] [address] 4th [place] [phone] Carlos Joyner MD [address] [place] [address] 344435 07/25/2025 11:00 AM SERIALS LIBRARIAN Office Visit [address] [address] [place] [address] [place] [address] documented as of this encounter Visit Diagnoses Not on filedocumented in this encounter Additional Health Concerns Infection Onset Date Last Indicated Resolved Time MRSA Comment:Added from external infection. Pt has had Staph infections but never MRSA from Care everywhere chart review. Removing MRSA 9.14.23 06/17/2019 02/06/2023 9:41 AM C DT documented as of this encounter Care Teams Line Supervisor Relationship Specialty Start Date End Date Ignacia Duran MD PCP - General Pediatrics 01/20/20 03/04/23 [place] [address] [place] [address] PCP - General 03/05/23 Carlos Joyner MD 9 [place] [address] Urology 12/09/19 Jadon Murray MD [facility] 2530 [facility] 550 [place] [address] Referring Physician Pediatric Surgery 12/09/19 Maru Villgaomez, RN Registered Nurse 12/10/19 Ang Slade MD [address] [address] Urology 04/24/20 Carlos Joyner MD [address] [place] [address] Assigned Surgical Provider 12/24/20 Annalise Orta PA-C [address] [place] [address] Assigned Cancer Care Provider 05/13/21 11/01/22 Ang Slade MD 420 [facility] 394 [place] [address] Urology 12/18/22 Lakshmi Wilhelm PA-C [address] [place] [address]14 Physician Graphic Design Specialist Urology 02/03/23 [place] [address] [place] [address] Assigned PCP 02/06/23 Alissa Perez PA-C [address] [place] [address]479 Physician Graphic Design Specialist Surgery 09/04/23 Lakshmi Wilhelm PA-C [address] [place] [address] Physician Graphic Design Specialist Urology 09/16/23 Aidee Valero PA-C [address] [place] [address] Assigned Musculoskeletal Provider 04/17/24 02/14/25 Carlos Joyner MD [address] [place] [address] Urology 01/26/25 Jadon Floyd MD [address] [place] [address] 853395 Physician Physical Medicine and Rehabilitation 01/31/25 [place] [address] [place] [address] Assigned Musculoskeletal Provider 02/15/25 Tanisha Marlow 4120 [facility] [address] 03/30/24 documented as of this encounter
--- OUTSIDE RECORDS SUMMARY | 2025-02-26 23:20 | XMS_ITS | Encounter Summary ---
Author Organization [facility] Address [address] [place] [address] Care Team Providers Care Polishing Wheel Repairer Name Role Phone Carlos Joyner MD Unavailable [phone] Jadon Murray MD Unavailable [phone] Maru Villagomez RN Unavailable Unavailable Ignacia Duran MD Primary Care Provider [phone] Ang Slade MD Unavailable +[phone] Carlos Joyner MD Unavailable +[phone] Annalise Orta PA-C Unavailable +[phone] Ang Slade MD Unavailable +[phone] Lakshmi Wilhelm-C Unavailable +[phone] Heladio Willoughby MD Primary Care Provider [phone] Heladio Willoughby MD Unavailable Alissa Perez PA-C Unavailable [phone] LaLakshmi morales-C Unavailable +[phone] Aidee Valero PA-C Unavailable [phone] Carlos Joyner MD Unavailable +[phone] Jadon Floyd MD Unavailable [phone] Cayden Bejarano MD Unavailable Encounter Details Date Type Department Care Team (Late st Contact Info) Description 11/07/2021 MyC Medical Advice [facility] [address] [place] [phone] Analisa Palacio RN Social History Tobacco Use [...] [facility] [address] [place] [address] Jadon Floyd MD [address] [place] [address] 316505 03/23/2025 12:45 PM CDT Appointment [facility] [address] [facility] [address] [place] [phone] Cayden Bejarano MD [address] [place], [place] [address] [place] [address] 03/23/2025 1:30 PM CDT Hospital Encounter [facility] [address] [place] [address] [place] [address] [place] [address] [address] [place] [address] 03/25/2025 10:20 AM CDT Virtual Visit [facility] [place] [address] [place] [address] [place] [address] [place] [address] 04/04/2025 12:00 PM ACCOUNTS PAYABLE LEAD Office Visit [facility] [place] [address] [place] [address] Sugey Mccoy APRN [facility] [address] [place], [place] 9564[address] 05/30/2025 10:20 AM ACCOUNTS PAYABLE LEAD Appointment [facility] [address] [place] [address] Carlos Joyner MD [address] [place] [address] 906945 05/31/2025 2:00 PM ACCOUNTS PAYABLE LEAD Virtual Visit [facility] [place] 909 [facility] 4th [place] [address] Carlos Joyner MD [address] [place] [address] 07/25/2025 11:00 AM ACCOUNTS PAYABLE LEAD Office [facility] [address] [place] [address] [place] [address] [place] [address] documented as of this encounter Visit Diagnoses Not on filedocumented in this encounter Additional Health Concerns Infection Onset Date Last Indicated Resolved Time MRSA Comment:Added from external infection. Pt has had Staph infections but never MRSA from Care everywhere chart review. Removing MRSA 9.14.23 06/17/2019 02/06/2023 9:41 AM C DT documented as of this encounter Care Teams Polishing Wheel Repairer Relationship Specialty Start Date End Date Ignacia Duran MD PCP - General Pediatrics 01/20/20 03/04/23 [place] [address] [place] [address] PCP - General 03/05/23 Carlos Joyner MD [address] [place] [address] Urology 12/09/19 Jadon Murray MD [facility] [address] [address] Referring Physician Pediatric Surgery 12/09/19 Maru Villagomez, RN Registered Nurse 12/10/19 Ang Slade MD [address] [place] [address] Urology 04/24/20 Carlos Joyner MD [address] [place] [address] Assigned Surgical Provider 12/24/20 Annalise Orta PA-C 5200 [place] [address] Assigned Cancer Care Provider 05/13/21 11/01/22 Ang Slade MD [address] [address] Urology 12/18/22 Lakshmi Wilhelm PA-C [address] [place] [address]11 Physician Geology Instructor Urology 02/03/23 [place] [address] [facility] [place] [address] Assigned PCP 02/06/23 Alissa Perez PA-C [address] [place] [address] 600635 Physician Geology Instructor Surgery 09/04/23 Lakshmi Wilhelm PA-C [address] [place] [address] Physician Geology Instructor Urology 09/16/23 Aidee Valero PA-C [address] [place] [address] 714165 Assigned Musculoskeletal Provider 04/17/24 02/14/25 Carlos Joyner MD [address] [place] [address] 923255 Urology 01/26/25 Jadon Floyd MD [address] [place] [address] 688505 Physician Physical Medicine and Rehabilitation 01/31/25 [place] [address] [place] [address] Assigned Musculoskeletal Provider 02/15/25 Tanisha Marlow 4120 [facility] [address] 03/30/24 documented as of this encounter
--- OUTSIDE RECORDS SUMMARY | 2025-02-26 23:20 | XMS_ITS | Encounter Summary ---
Author Organization [facility] Address [address] [place] [address] Care Team Providers Care Reptile Keeper Name Role Phone Carlos Joyner MD Unavailable [phone] Jadon Murray MD Unavailable [phone] Maru Villagomez RN Unavailable Unavailable Ignacia Duran MD Primary Care Provider [phone] Ang Slade MD Unavailable +[phone] Carlos Joyner MD Unavailable +[phone] Annalise Orta PA-C Unavailable +[phone] Ang Slade MD Unavailable +[phone] Lakshmi Wilhelm-C Unavailable [phone] Heladio Willoughby MD Primary Care Provider [phone] Heladio Willoughby MD Unavailable Alissa Perez PA-C Unavailable [phone] LaLakshmi morales-C Unavailable +[phone] Aidee Valero PA-C Unavailable [phone] Carlos Joyner MD Unavailable +[phone] Jadon Floyd MD Unavailable [phone] Cayden Bejarano MD Unavailable Encounter Details Date Type Department Care Team (Late st Contact Info) Description 10/02/2021 MyC Medical Advice [facility] [address] [place] [phone] Analisa Palacio RN Social History Tobacco Use [facility] [address] [place] [address] Jadon Floyd MD [address] [place] [address] 03/23/2025 12:45 PM CDT Appointment [facility] [address] [place] [address] [place] [address] [facility] [address] [address] [place] [address] 03/23/2025 1:30 PM CDT Hospital Encounter [facility] [address] [place] [address] [place] [address] [facility] [address] [place] [address] 03/25/2025 10:20 AM CDT Virtual Visit [facility] [place] [address] [place] [address] [place] [address] [place] [address] 04/04/2025 12:00 PM BROKERAGE BRANCH MANAGER Office Visit [facility] [place] [address] [facility] [address] [address] Sugey Mccoy APRN [facility] [address] [place] [address] [address] [place], [place] 166134 05/30/2025 10:20 AM BROKERAGE BRANCH MANAGER Appointment [facility] Imaging [address] [facility] [address] [place] [address] Carlos Joyner MD [address] [place] [address] 05/31/2025 2:00 PM BROKERAGE BRANCH MANAGER Virtual Visit [facility] [place] 909 [facility] 4th [place] [address] Carlos Joyner MD [address] [place] [address] 123385 07/25/2025 11:00 AM BROKERAGE BRANCH MANAGER [facility] [address] [place] [address] [place] [address] [place] [address] documented as of this encounter Visit Diagnoses Not on filedocumented in this encounter Additional Health Concerns Infection Onset Date Last Indicated Resolved Time MRSA Comment:Added from external infection. Pt has had Staph infections but never MRSA from Care everywhere chart review. Removing MRSA 9.14.23 06/17/2019 02/06/2023 9:41 AM C DT documented as of this encounter Care Teams Reptile Keeper Relationship Specialty Start Date End Date Ignacia Duran MD PCP - General Pediatrics 01/20/20 03/04/23 [place] [address] [place] [address] PCP - General 03/05/23 Carlos Joyner MD [address] [place] [address] 207245 Urology 12/09/19 Jadon Murray MD [facility] [address] [address] Referring Physician Pediatric Surgery 12/09/19 Maru Villagomez, OTILIO Registered Nurse 12/10/19 Ang Slade MD [address] [place] [address] 128375 Urology 04/24/20 Carlos Joyner MD [address] [place] [address]68 Assigned Surgical Provider 12/24/20 Annalise Orta PA-C 5200 [place] [address] Assigned Cancer Care Provider 05/13/21 11/01/22 Ang Slade MD [address] [place] [address] Urology 12/18/22 Lakshmi Wilhelm PA-C [address] [place] [address] 98689 Physician Fashion Design Professor Urology 02/03/23 [place] [address] [place] [address] Assigned PCP 02/06/23 Alissa Perez PA-C [address] [place] [address] Physician Fashion Design Professor Surgery 09/04/23 Lakshmi Wilhelm PA-C [address] [place] [address] Physician Fashion Design Professor Urology 09/16/23 Aidee Valero PA-C [address] [place] [address] 453665 Assigned Musculoskeletal Provider 04/17/24 02/14/25 Carlos Joyner MD [address] [place] [address] 837635 Urology 01/26/25 Jadon Floyd MD [address] [place] [address] 060225 Physician Physical Medicine and Rehabilitation 01/31/25 [place] [address] [place] [address] Assigned Musculoskeletal Provider 02/15/25 Tanisha Marlow 4120 [facility] [address] 03/30/24 documented as of this encounter
--- OUTSIDE RECORDS SUMMARY | 2025-02-26 23:20 | XMS_ITS | Encounter Summary ---
Author Organization [facility] Address [address] [place] [address] Care Team Providers Care Nicker Name Role Phone Carlos Joyner MD Unavailable + [phone] Jadon Murray MD Unavailable +[phone] Maru Villagomez RN Unavailable Unavailable Ang Slade MD Unavailable [phone] Carlos Joyner MD Unavailable + [phone] Ang Slade MD Unavailable +[phone] Lakshmi Wilhelm-C Unavailable +[phone] Heladio Willoughby MD Primary Care Provider [phone] Heladio Willoughby MD Unavailable Alissa Perez PA-C Unavailable [phone] Lakshmi Wilhelm-C Unavailable +[phone] Aidee Valero PA-C Unavailable +[phone] Carlos Joyner MD Unavailable + [phone] Jadon Floyd MD Unavailable +[phone] Cayden Bejarano MD Unavailable Encounter Details Date Type Department Care Team (Late st Contact Info) Description 08/18/2023 [facility] [address] [address] Conner, Analisa Social History Tobacco Use Types Packs/Day Years [...] 9:00 AM CDT Office Visit [facility] Physical Medicine and Rehabilitation Clinic [address] [address] Jadon Floyd MD [address] [place] [address] 099785 03/23/2025 12:45 PM CDT Appointment [facility] [address] [facility] [address] [place] [address] [place] [address] [place] [address] 03/23/2025 1:30 PM CDT Hospital Encounter [facility] [address] [facility] [address] [place] [address] Cayden [place]jarano [place] [address] [place] [address] [address] [place] [address] 03/25/2025 10:20 AM CDT Virtual Visit [facility] Sports Medicine [facility] [address] [place] [address] [address] [place] [address] [place] [address] [place] [address] 04/04/2025 12:00 PM GAS TURBINE MECHANIC Office Visit [facility] Sleep [address] [phone] Sugey Mccoy, LAP REGULATOR [address] 740434 05/30/2025 10:20 AM GAS TURBINE MECHANIC Appointment [facility] [address] [facility] [address] [place] [address] Carlos Joyner MD [address] [place] [address] 23003455 05/31/2025 2:00 PM GAS TURBINE MECHANIC Virtual Visit [facility] Urology Clinic [address] 4th [place] [address] Carlos Joyner MD [address] [place] [address] 70880455 07/25/2025 11:00 AM GAS TURBINE MECHANIC Office Visit [facility] [address] [place] [phone] [place] [address] [address] [place] [place] [phone] documented as of this encounter Visit Diagnoses Not on filedocumented in this encounter Care Teams Nicker Relationship Specialty Start [place] [address] [place] [address] PCP - General 03/05/23 Carlos Joyner MD [address] [place] [address] Urology 12/09/19 Jadon Murray MD [facility] 2530 [facility] 550 [place] [address] Referring Physician Pediatric Surgery 12/09/19 Maru Villagomez, RN Registered Nurse 12/10/19 Ang Slade MD [address] [place] [address] Urology 04/24/20 Carlos Joyner MD [address] [place] [address] 647475 Assigned Surgical Provider 12/24/20 Ang Slade MD [address] [address] Urology 12/18/22 Lakshmi Wilhelm PA-C [address] [place] [address] 19781 Physician Incoming Inspector Urology 02/03/23 [place] [address] [place] [address] Assigned PCP 02/06/23 Alissa Perez PA-C [address] [place] [address] Physician Incoming Inspector Surgery 09/04/23 Lakshmi Wilhelm PA-C [address] [place] [address] Physician Incoming Inspector Urology 09/16/23 Aidee Valero PA-C [address] [place] [address] Assigned Musculoskeletal Provider 04/17/24 02/14/25 Carlos Joyner MD [address] [place] [address] 524535 Urology 01/26/25 Jadon Floyd MD [address] [place] [address] Physician Physical Medicine and Rehabilitation 01/31/25 [place] [address] [place] [address] Assigned Musculoskeletal Provider 02/15/25 Tanisha Marlow 4120 [facility] [address] (work) 03/30/24 documented as of this encounter
[2025-02-26 23:39] VITALS: BP 128/100; PULSE 109; RESP 20; TEMP 38.7; O2SAT 94
--- NOTE | 2025-02-27 00:07 | CRLHL7_ITS ---
For Patients: As a result of the Century Cures Act, medical imaging exams and procedure reports are released immediately into your electronic medical record. You may view this report before your referring provider. If you have questions, please contact your health care provider. INDICATION: Fever, cough, wheeze. TECHNIQUE: Chest 1 views. COMPARISON: None. FINDINGS: Cardiovascular and mediastinum: Heart size and vasculature are normal in caliber and appearance. Lungs and pleural spaces: Low lung volumes. No sign of infiltrate or mass. No sign of pleural effusion. No pneumothorax. Bones and soft tissues: Multiple dilated loops of colon elevating the diaphragm. No significant findings. IMPRESSION: Low lung volumes. No acute or significant findings. Multiple dilated loops of colon elevating the diaphragm. Dictated by Tristen Gamez MD @ 02/27/2025 1:38:56 AM (Electronically Signed)
[2025-02-27] MEDS: ACETAMINOPHEN 500 MG TABLET 1000 MG PO (01:09)
[2025-02-27 01:12] LABS: PCR FLU A Negative PCR FLU A (Negative); PCR FLU B Negative PCR FLU B (Negative); PCR RSV Negative PCR RSV (Negative); SARS PCR* Negative SARS-CoV-2 (Negative)
--- NOTE | 2025-02-27 01:29 | ED.FEVER ---
HPI - Fever General Time Seen by Provider: 01:30 Date Seen: 02/27/25 Chief Complaint: Fever Stated Complaint: fever Time Seen by Provider: 02/27/25 01:03 Source: patient Mode of arrival: ambulatory History of Present Illness HPI Narrative: Laina is a 24-year-old female with a past medical history of spina bifida, paraplegia who presents the emergency department for evaluation of fever. Patient presents tonight with a caregiver. Patient reports that had a fever yesterday morning of 102, states that fever went away however tonight fever came back. Prior to arrival patient had temperature of 99.8?. Patient reports associated runny nose, dry cough, and some wheezing noted earlier today. Patient denies any chest pain, shortness of breath, abdominal pain, nausea, vomiting. No sick contacts, no other complaints. Related Data Home Medications ?Medication ?Instructions ?Recorded ?Confirmed oxybutynin chloride 5 mg tablet 5 mg PO BID 07/21/22 06/10/24 indapamide 1.25 mg tablet 1.25 mg PO QAM 10/31/23 06/10/24 potassium chloride 10 mEq 10 meq PO BID 10/31/23 06/10/24 tablet,extended release(part/cryst) Previous Rx's ?Medication ?Instructions ?Recorded ciprofloxacin HCl 500 mg tablet 500 mg PO BID 10 days #20 tabs 05/02/24 (Cipro) ciprofloxacin HCl 500 mg tablet 500 mg PO BID #14 tabs 06/07/24 (Cipro) ondansetron 4 mg disintegrating 4 mg PO Q8H PRN nausea and 07/19/24 tablet vomiting #10 tabs Allergies Allergy/AdvReac Type Severity Reaction Status Date / Time ibuprofen Allergy Intermediate 1 Kidney Verified 08/03/24 22:05 vancomycin Allergy Intermediate Swapnil Verified 08/03/24 22:05 Syndrome latex Allergy Mild Rash Verified 08/03/24 22:05 Review of Systems Narrative Past medical history, past surgical history, medications, allergies, family history, and social history were reviewed with the patient. No additional pertinent items. A medically appropriate review of systems was performed with pertinent positives and negatives noted in HPI, all other systems negative. PFSH PFS Medical History Depression ?F32.A - Depression, unspecified (ICD-10) Paraplegia ?G82.20 - Paraplegia, unspecified (ICD-10) Horseshoe kidney ?Q63.1 - Lobulated, fused and horseshoe kidney (ICD-10) Mild intellectual disability ?F70 - Mild intellectual disabilities (ICD-10) Neurogenic bladder ?N31.9 - Neuromuscular dysfunction of bladder, unspecified (ICD-10) COVID-19 ?U07.1 - COVID-19 (ICD-10) Spina bifida ?Q05.9 - Spina bifida, unspecified (ICD-10) Surgical History History of spinal fusion ?Z98.1 - Arthrodesis status (ICD-10) H/O wisdom tooth extraction ?K08.409 - Partial loss of teeth, unspecified cause, unspecified class (ICD-10) Hx of nephrolithotomy with removal of calculi ?Z98.890 - Other specified postprocedural states (ICD-10) ?Z87.442 - Personal history of urinary calculi (ICD-10) S/P MEASUREMENT AND SENSING TECHNICIAN shunt ?Z98.2 - Presence of cerebrospinal fluid drainage device (ICD-10) Family History Father Diabetes Mother Bipolar 1 disorder Social History What is your current living situation?: I presently have a place to live Problems where you live: no known problems Problems where you live details: no known problems In the past 12 months, utilities in danger of being shut off: no In past 12 months, lack of transportation kept you from medical appts, meetings, work, or getting things needed for daily living: no In the past 12 mos, have been you worried that your food would run out before you had money to buy more?: never true In the past 12 mos, the food you bought just didn't last and you didn't have money to buy more?: never true Smoking Status: Never smoker Do you use any of these nicotine containing products: None Second hand tobacco smoke exposure: No How often do you have a drink containing alcohol: never AUDIT-C Alcohol total score: 0 Non-prescribed substance use: denies use Caffeine: Yes (Coffee) How often does anyone, including family, friends and others, physically hurt you: never How often does anyone, including family, friends and others, insult or talk down to you: never How often does anyone, including family, friends and others, threaten you with harm: never How often does anyone, including family, friends and others, scream or curse at you: never service: No Exam Narrative Exam Narrative: General: Febrile 101.6, no distress HEENT: Normocephalic, atraumatic, conjunctiva normal. MMM Neck: non-tender, supple Cardio: regular rate. regular rhythm Resp: Normal work of breathing, no respiratory distress, lungs clear bilaterally, no wheezing, rhonchi, rales Chest/Back: no visual signs of trauma, no midline tenderness, no CVA tenderness Abdomen: soft, non distension, no tenderness, no peritoneal signs Neuro: alert and fully oriented. CN II-XII grossly intact. Grossly normal strength and sensation in all extremities. MSK: no deformities. Normal range of motion Integumentary/Skin: no rash visualized, normal color Psych: normal affect, normal behavior Const Vital Signs, click to edit/add: Vital Signs - 24 hr 02/26/25 23:39 02/27/25 02:46 Temperature 101.6 F H 99.3 F Pulse Rate [Pulse Oximeter] 109 H 113 H Respiratory Rate 20 20 Blood Pressure [Right Upper Arm] 128/100 H 124/62 Pulse Oximetry 94 93 Oxygen Delivery Method Room Air Room Air Course Vital Signs Vital signs: Initial Vital Signs Temperature 101.6 F H 02/26/25 23:39 Temperature Source Temporal Artery Scan 02/26/25 23:39 Pulse Rate 109 H 02/26/25 23:39 Respiratory Rate 20 02/26/25 23:39 Blood Pressure 128/100 H 02/26/25 23:39 Blood Pressure Mean 109 H 02/26/25 23:39 Blood Pressure Position Sitting 02/26/25 23:39 Pulse Oximetry 94 02/26/25 23:39 Oxygen Delivery Method Room Air 02/26/25 23:39 Vital Signs Temperature 101.6 F H 02/26/25 23:39 Pulse Rate 109 H 02/26/25 23:39 Respiratory Rate 20 02/26/25 23:39 Blood Pressure 128/100 H 02/26/25 23:39 Pulse Oximetry 94 02/26/25 23:39 Oxygen Delivery Method Room Air 02/26/25 23:39 Temperature 99.3 F 02/27/25 02:46 Pulse Rate 113 H 02/27/25 02:46 Respiratory Rate 20 02/27/25 02:46 Blood Pressure 124/62 02/27/25 02:46 Pulse Oximetry 93 02/27/25 02:46 Oxygen Delivery Method Room Air 02/27/25 02:46 Medications Administered Medications: Discontinued Medications Generic Name Dose Route Start Last Admin Trade Name Kenny PRN Reason Stop Dose Admin Acetaminophen 1,000 mg 02/27/25 00:09 02/27/25 01:09 Acetaminophen 500 Mg Tablet PO 02/27/25 00:10 1,000 mg ONCE ONE Administration MDM - Fever MDM Narrative Medical decision making narrative: Laina is a 24-year-old female with a past medical history of spina bifida, paraplegia who presents the emergency department for evaluation of fever. Upon arrival patient is ill but nontoxic appearing, febrile 101.6, no distress. Lungs are clear to auscultation bilaterally. Patient with fever, rhinorrhea, dry cough. Differential diagnosis includes but is not limited to viral illness versus COVID versus influenza versus bronchitis versus pneumonia among others. Patient was treated with Tylenol, viral testing negative for influenza/COVID/RSV. I personally viewed and interpreted chest x-ray which demonstrates no large focal infiltrate, pneumothorax, pleural effusion. I discussed results with patient and caregiver, patient with improvement of fever after Tylenol to 99.3. Lungs remain clear, no wheezing, crackles, rales. No focal infiltrate on x-ray that at this point I would start antibiotic treatment with. Given patient's symptoms, fever, suspect likely upper respiratory infection. At this time patient and staff feel comfortable discharge home. Will hold off on antibiotics at this time after shared decision making. Plan for continue supportive care, close outpatient follow-up and strict return precautions discussed. Patient and staff understand agrees the plan. Medical Records Attestation: I reviewed the patient's medical records. Lab Data Labs: Lab Results 02/26/25 Range/Units 23:40 SARS-CoV-2 (PCR) Negative SARS-CoV-2 (Negative) Influenza Type A (PCR) Negative PCR FLU A (Negative) Influenza Type B (PCR) Negative PCR FLU B (Negative) RSV (PCR) Negative PCR RSV (Negative) Imaging Data Chest x-ray: Attestation: I have reviewed the pertinent imaging results. Radiologist's impression: FINDINGS: Cardiovascular and mediastinum: Heart size and vasculature are normal in caliber and appearance. Lungs and pleural spaces: Low lung volumes. No sign of infiltrate or mass. No sign of pleural effusion. No pneumothorax. Bones and soft tissues: Multiple dilated loops of colon elevating the diaphragm. No significant findings. IMPRESSION: Low lung volumes. No acute or significant findings. Multiple dilated loops of colon elevating the diaphragm. Discharge Plan Discharge Clinical Impression: Fever, Upper respiratory infection Patient Disposition: Home, Self-Care Condition: Stable Additional Instructions: Please follow-up with your primary care provider in the next 3-5 days for further evaluation and follow-up. Please call Friday to schedule an appointment. Please continue old medications. Please alternate taking Tylenol and ibuprofen every 6 hours as needed for fever. You may also use [id number] cough/cold medication as needed to help with your symptoms (example Mucinex, Sudafed, etc. ). Please return to the emergency department if you develop persistent high fever, chest pain, shortness of breath, any worsening symptoms. It was a pleasure taking care of you today. We hope you feel better soon. Prescriptions: No Action oxybutynin chloride 5 mg tablet 5 mg PO BID indapamide 1.25 mg tablet 1.25 mg PO QAM potassium chloride 10 mEq tablet,ER particles/crystals 10 meq PO BID ciprofloxacin HCl [Cipro] 500 mg tablet 500 mg PO BID Qty: 14 0RF ciprofloxacin HCl [Cipro] 500 mg tablet 500 mg PO BID 10 Days Qty: 20 0RF ondansetron 4 mg tablet,disintegrating 4 mg PO Q8H PRN (Reason: nausea and vomiting) Qty: 10 0RF Follow Up/Referrals: Ignacia Duran MD [Primary Care Provider, Pediatrics] Stand Alone Forms: [employer] Info Instructions
--- OUTSIDE RECORDS SUMMARY | 2025-02-27 01:55 | XMS_ITS | Encounter Summary ---
Author Organization [place] Address [address] [place] [address] Care Team Providers Care Ship Harbor Pilot Name Role Phone Carlos Joyner MD Unavailable [phone] Jadon Murray MD Unavailable [phone] Maru Villagomez RN Unavailable Unavailable Ignacia Duran MD Primary Care Provider [phone] Ang Slade MD Unavailable [phone] Carlos Joyner MD Unavailable [phone] Ang Slade MD Unavailable [phone] Lakshmi Wilhelm-C Unavailable [phone] Heladio Willoughby MD Primary Care Provider [phone] Heladio Willoughby MD Unavailable Alissa Perez PA-C Unavailable [phone] NjLakshmi morales-C Unavailable [phone] Aidee Valero PA-C Unavailable [phone] Carlos Joyner MD Unavailable [phone] Jadon Floyd MD Unavailable [phone] Cayden Bejarano MD Unavailable Encounter Details Date Type Department Care Team (Late st Contact Info) Description 01/06/2023 [facility] [address] [place] [address] Lisette Mariee Social History Tobacco Use Types [...] [facility] [address] [phone] Jadon Floyd MD [address] [place] [address] 03/23/2025 12:45 PM CDT Appointment [facility] [id number] [place] [address] [address] [place] [phone] Cayden Bejarano MD [address] [place] [address] [address] [place] [address] 03/23/2025 1:30 PM CDT Hospital Encounter [facility] [address] [facility] [address] [place] [phone] Cayden Bejarano MD [address] [place] [address] [address] [place] [address] 03/25/2025 10:20 AM CDT Virtual Visit [facility] [address] [place] [address] [place] [address] [place] [address] 04/04/2025 12:00 PM SPRINKLER DRIVER Office Visit [facility] [place] [address] [place] [phone] Sugey Mccoy, SEAFOOD HARVESTER [facility] [address] [place], [place] [address]E [address] [place] [address] 05/30/2025 10:20 AM SPRINKLER DRIVER Appointment [facility] [address] [facility] [address] [place] [phone] Carlos Joyner MD [address] [place] [address] 05/31/2025 2:00 PM SPRINKLER DRIVER Virtual Visit [facility] [place] [address] [facility] 4th [place] [phone] Carlos Joyner MD [address] [place] [address] 07/25/2025 11:00 AM SPRINKLER DRIVER Office Visit [address] [address] [place] [address] [place] [address] documented as of this encounter Visit Diagnoses Not on filedocumented in this encounter Additional Health Concerns Infection Onset Date Last Indicated Resolved Time MRSA Comment:Added from external infection. Pt has had Staph infections but never MRSA from Care everywhere chart review. Removing MRSA 9.14.23 06/17/2019 02/06/2023 9:41 AM C DT documented as of this encounter Care Teams Ship Harbor Pilot Relationship Specialty Start Date End Date Ignacia Duran MD PCP - General Pediatrics 01/20/20 03/04/23 [place] [address] [place] [address] PCP - General 03/05/23 Carlos Joyner MD [address] [place] [address] Urology 12/09/19 Jadon Murray MD [facility] [address]30 [facility] 550 [place], [place] [phone] Referring Physician Pediatric Surgery 12/09/19 Maru Villagomez, RN Registered Nurse 12/10/19 Ang Slade MD [address] [place] [address] 394 [place], [place] [address] Urology 04/24/20 Carlos Joyner MD [address] [place] [address] 378945 Assigned Surgical Provider 12/24/20 Ang Slade MD [address] [facility] 394 [place] [address] Urology 12/18/22 Lakshmi Wilhelm PA-C [address] [place] [address] Physician Tread Cutter Urology 02/03/23 [place] [address] [place] [address] Assigned PCP 02/06/23 Alissa Perez PA-C [address] [place] [address] Physician Tread Cutter Surgery 09/04/23 Lakshmi Wilhelm PA-C [address] [place] [address] Physician Tread Cutter Urology 09/16/23 Aidee Valero PA-C [address] [place] [address] Assigned Musculoskeletal Provider 04/17/24 02/14/25 Carlos Joyner MD [address] [place] [address] Urology 01/26/25 Jadon Floyd MD [address] [place] [address] Physician Physical Medicine and Rehabilitation 01/31/25 [place] [address] [place] [address] Assigned Musculoskeletal Provider 02/15/25 Tanisha Marlow 4[address] [facility] [address] 03/30/24 documented as of this encounter
--- OUTSIDE RECORDS SUMMARY | 2025-02-27 01:55 | XMS_ITS | Encounter Summary ---
Author Organization [place] Address [address] [place] [address] Care Team Providers Care Classified Copy Control Clerk Name Role Phone Carlos Joyner MD Unavailable [phone] Jadon uMrray MD Unavailable [phone] Maru Villagomez RN Unavailable Unavailable Ignacia Duran MD Primary Care Provider [phone] Ang Slade MD Unavailable [phone] Carlos Joyner MD Unavailable [phone] Ang Slade MD Unavailable [phone] Lakshmi Wilhelm-C Unavailable [phone] Heladio Willoughby MD Primary Care Provider [phone] Heladio Willoughby MD Unavailable Alissa Perez PA-C Unavailable [phone] PaLakshmi morales-C Unavailable [phone] Aidee Valero PA-C Unavailable [phone] Carlos Joyner MD Unavailable [phone] Jadon Floyd MD Unavailable [phone] Cayden Bejarano MD Unavailable Encounter Details Date Type Department Care Team (Late st Contact Info) Description 12/30/2022 [facility] Urology [address] [place] [address] Analisa Palacio RN Social History Tobacco Use [...] Description 03/03/2025 9:00 AM CDT Office Visit [facility] [address] [place] [phone] Jadon Floyd MD [address] [place] [address] 03/23/2025 12:45 PM CDT Appointment [facility] [address] [place] [address] [address] [place] [phone] Cayden Bejarano MD [address] [place] [address] [address] [place] [address] 03/23/2025 1:30 PM CDT Hospital Encounter [facility] [address] [place] [phone] Cayden Bejarano MD [address] [place] [address] [address] [place] [address] 03/25/2025 10:20 AM CDT Virtual Visit [facility] [address] [place] [address] [place] [address] [place] [address] 04/04/2025 12:00 PM HYDRAULIC BARKER OPERATOR Office Visit [facility] [place] [address] [place] [phone] Sugey Mccoy, GRINDING OPERATOR [facility] [address] [place], [place] [address]E [address] [place] [address] 05/30/2025 10:20 AM HYDRAULIC BARKER OPERATOR Appointment [facility] [address] [facility] [address] [place] [phone] Carlos Joyner MD [address] [place] [address] 05/31/2025 2:00 PM HYDRAULIC BARKER OPERATOR Virtual Visit [facility] [place] [address] [facility] 4th [place] [phone] Carlos Joyner MD [address] [place] [address]67[address] 07/25/2025 11:00 AM HYDRAULIC BARKER OPERATOR Office Visit [address] [address] [place] [address] [place] [address] documented as of this encounter Visit Diagnoses Not on filedocumented in this encounter Additional Health Concerns Infection Onset Date Last Indicated Resolved Time MRSA Comment:Added from external infection. Pt has had Staph infections but never MRSA from Care everywhere chart review. Removing MRSA 9.14.23 06/17/2019 02/06/2023 9:41 AM C DT documented as of this encounter Care Teams Classified Copy Control Clerk Relationship Specialty Start Date End Date Ignacia Duran MD PCP - General Pediatrics 01/20/20 03/04/23 [place] [address] [place] [address] PCP - General 03/05/23 Carlos Joyner MD [address] [place] [address] Urology 12/09/19 Jadon Murray MD [facility] [address] [facility] 550 [place], [place] [phone] Referring Physician Pediatric Surgery 12/09/19 Maru Villagomez, RN Registered Nurse 12/10/19 Ang Slade MD [address] [place] [address]54[address] Urology 04/24/20 Carlos Joyner MD [address] [place] [address] 670805 Assigned Surgical Provider 12/24/20 Ang Slade MD [address] [place] [address] 394 [place] [address] Urology 12/18/22 Lakshmi Wilhelm PA-C [address] [place] [address] Physician Cotton Breeder Urology 02/03/23 [place] [address] [place] [address] Assigned PCP 02/06/23 Alissa Perez PA-C [address] [place] [address] Physician Cotton Breeder Surgery 09/04/23 Lakshmi Wilhelm PA-C [address] [place] [address] Physician Cotton Breeder Urology 09/16/23 Aidee Valero PA-C [address] [place] [address] Assigned Musculoskeletal Provider 04/17/24 02/14/25 Carlos Joyner MD [address] [place] [address] Urology 01/26/25 Jadon Floyd MD [address] [place] [address] Physician Physical Medicine and Rehabilitation 01/31/25 [place] [address] [place] [address] Assigned Musculoskeletal Provider 02/15/25 Tanisha Marlow 4[address] [facility] [address] 03/30/24 documented as of this encounter
--- OUTSIDE RECORDS SUMMARY | 2025-02-27 01:55 | XMS_ITS | Encounter Summary ---
Author Organization [facility] Address [address] [place] [address] Care Team Providers Care Track Repairer Helper Name Role Phone Carlos Joyner MD Unavailable [phone] Jadon Murray MD Unavailable +[phone] Maru Villagomez RN Unavailable Unavailable Ignacia Duran MD Primary Care Provider [phone] Ang Slade MD Unavailable +[phone] Carlos Joyner MD Unavailable [phone] Ang Slade MD Unavailable +[phone] Lakshmi Wilhelm-C Unavailable +[phone] Heladio Willoughby MD Primary Care Provider [phone] Heladio Willoughby MD Unavailable Alissa Perez PA-C Unavailable [phone] MaLakshmi morales-C Unavailable +[phone] Aidee Valero PA-C Unavailable +[phone] Carlos Joyner MD Unavailable +[phone] Jadon Floyd MD Unavailable +[phone] Cayden Bejarano MD Unavailable Encounter Details Date Type Department Care Team (Late st Contact Info) Description 01/07/2023 [facility] Urology [address] [place] [address] Analisa Palacio RN Social History Tobacco Use [...] [facility] [address] 3rd [place] [phone] Jadon Floyd MD [address] [place] [address] 03/23/2025 12:[address] [facility] Imaging [address] [place] [address] [address] [place] [address] Cayden Bejarano MD [address] [place] [address] [address] [place] [address] 03/23/2025 1:30 PM CDT Hospital Encounter [facility] Imaging [address] [place] [address] Cayden Bejarano MD [address] [place] [address] [address] [place] [address] 03/25/2025 10:20 AM CDT Virtual Visit [facility] [address] [place] [address] [place] [address] [place] [address] 04/04/2025 12:00 PM FAMILY PRACTICE PHYSICIAN Office Visit [facility] [place] [address] [place] [address] Sugey Mccoy, CLOTH B[facility] [facility] [address] [place], [place] [address]E [address] [place] [address] 05/30/2025 10:20 AM FAMILY PRACTICE PHYSICIAN Appointment [facility] Imaging [address] [facility] [address] [place] [address] Carlos Joyner MD [address] [place] [address] 323525 05/31/2025 2:00 PM FAMILY PRACTICE PHYSICIAN Virtual Visit [facility] [place] [address] [facility] 4th [place] [phone] Carlos Joyner MD [address] [place] [address] 914695 07/25/2025 11:00 AM FAMILY PRACTICE PHYSICIAN Office Visit [address] [address] [place] [address] [place] [address] documented as of this encounter Visit Diagnoses Not on filedocumented in this encounter Additional Health Concerns Infection Onset Date Last Indicated Resolved Time MRSA Comment:Added from external infection. Pt has had Staph infections but never MRSA from Care everywhere chart review. Removing MRSA 9.14.23 06/17/2019 02/06/2023 9:41 AM C DT documented as of this encounter Care Teams Track Repairer Helper Relationship Specialty Start Date End Date Ignacia Duran MD PCP - General Pediatrics 01/20/20 03/04/23 [place] [address] [place] [address] PCP - General 03/05/23 Carlos Joyner MD [address] [place] [address] Urology 12/09/19 Jadon Murray MD [facility] 2530 [facility] 550 [place], [place] [phone] Referring Physician Pediatric Surgery 12/09/19 Maru Villagomez, RN Registered Nurse 12/10/19 Ang Slade MD [address] [place] [address] 854485 Urology 04/24/20 Carlos Joyner MD [address] [place] [address] 251645 Assigned Surgical Provider 12/24/20 Ang Slade MD [address] [place] [address] 394 [place] [address] Urology 12/18/22 Lakshmi Wilhelm PA-C [address] [place] [address] Physician Cigar Bander Urology 02/03/23 [place] [address] [place] [address] Assigned PCP 02/06/23 Alissa Perez PA-C [address] [place] [address] Physician Cigar Bander Surgery 09/04/23 Lakshmi Wilhelm PA-C [address] [place] [address] Physician Cigar Bander Urology 09/16/23 Aidee Valero PA-C [address] [place] [address] Assigned Musculoskeletal Provider 04/17/24 02/14/25 Carlos Joyner MD [address] [place] [address] Urology 01/26/25 Jadon Floyd MD [address] [place] [address] Physician Physical Medicine and Rehabilitation 01/31/25 [place] [address] [place] [address] Assigned Musculoskeletal Provider 02/15/25 Tanisha Marlow [address] [place] [address] 03/30/24 documented as of this encounter
--- OUTSIDE RECORDS SUMMARY | 2025-02-27 01:56 | XMS_ITS | Encounter Summary ---
Author Organization [facility] Address [address] [place] [address] Care Team Providers Care Ore Puncher Name Role Phone Carlos Joyner MD Unavailable [phone] Jadno Murray MD Unavailable +[phone] Maru Villagomez RN Unavailable Unavailable Ang Slade MD Unavailable +[phone] Carlos Joyner MD Unavailable +[phone] Ang Slade MD Unavailable [phone] Lakshmi Wilhelm-C Unavailable +[phone] Heladio Willoughby MD Primary Care Provider [phone] Heladio Willoughby MD Unavailable Alissa Perez PA-C Unavailable [phone] NcLakshmi morales-C Unavailable +[phone] Aidee Valero PA-C Unavailable [phone] Carlos Joyner MD Unavailable +[phone] Jadon Floyd MD Unavailable [phone] Reason for Visit * Reason Onset Date Comments Forms 02/03/2025 OT Outpatient/Th oratic Spina bifida- [facility] Encounter Details Date Type Department Care Team (Late st Contact Info) Description 02/03/2025 [facility] [address] [place] [address] [place] [address] [address] [place] [phone] Forms (OT Outpatient/Thoratic Spina bifida- [facility]/) Social History Tobacco Use Types [...] - 02/03/2025 9:28 AM CDT Faxed to [facility] and abstracting. Placed in tc basket at [facility]. Sarika Prescott Metal Control Worker- [place] [address] Primary Care- [place] [facility] * Telephone Encounter - Heladio Willoughby MD - 02/03/2025 8:26 AM CDT Signed. Placed in outgoing box. MD Jael M[facility]ra [facility] * Telephone Encounter - Sarika Dunaway - 02/03/2025 7:47 AM CDT OT orders in provider basket for signature. Sarika Prescott, Metal Control Worker- [facility] 2 Primary Care- [place] [facility] * Telephone Encounter - Zoe Johnson - 02/03/2025 7:00 AM CDT Forms/Letter Request Type of form/letter: OTHER: [facility] Thoratic Spina bifida OT Outpatient Do we have the form/letter: Yes: Who is the form from? Where did/will the form come from? form was faxed in When is form/letter needed by: How would you like the form/letter returned: Zoe Johnson Patient Metal Fabricator Welder documented in this encounter Plan of Treatment Upcoming Encounters Date Type Department Care Team (Late st Contact Info) Description 03/03/2025 9:00 AM CDT Office Visit [facility] [address] [phone] Jadon Floyd MD [address] [place] [address] 03/23/2025 12:[address] [facility] [address] [facility] [address] [place] [address] [place] [address] [place] [address] 03/23/2025 1:30 PM CDT Hospital Encounter [facility] [address] [place] [address] [place] [address] [facility] [address] [place] [address] 03/25/2025 10:20 AM CDT Virtual Visit [facility] [place] [address] [facility] [address] [place] [address] [place] [address] [facility] 300 [place] [address] 04/04/2025 12:00 PM SHIP WORKER Office Visit [facility] [place] [address] [place] [address] Sugey Mccoy, CONSTRUCTION TECHNOLOGY [facility] [address] [place] [address] [address] [place] [address] 05/30/2025 10:20 AM SHIP WORKER Appointment [facility] Imaging [address] [facility] [address] [place] [address] Carlos Joyner MD [address] [place] [address] 412015 05/31/2025 2:00 PM SHIP WORKER Virtual Visit [facility] Clinic [address] 4th [place] [address] Carlos Joyner MD [address] [place] [address] 752335 07/25/2025 11:00 AM SHIP WORKER Office Visit [address] [address] [place] [address] [place] [address] documented as of this encounter Visit Diagnoses Not on filedocumented in this encounter Care Teams Ore Puncher Relationship Specialty Start [place] [address] [place] [address] PCP - General 03/05/23 Carlos Joyner MD [address] [place] [address] Urology 12/09/19 Jadon Murray MD [facility] 2530 [facility] S [address] [address] Referring Physician Pediatric Surgery 12/09/19 Maru Villagomez, RN Registered Nurse 12/10/19 Ang Slade MD [address] [place] [address] 100095 Urology 04/24/20 Carlos Joyner MD [address] [place] [address] 182125 Assigned Surgical Provider 12/24/20 Ang Slade MD [address] [place] [address] 692425 Urology 12/18/22 Lakshmi Wilhelm PA-C [address] [place] [address] 239215 Physician Commercial Construction Superintendent Urology 02/03/23 [place] [address] [place] [address] Assigned PCP 02/06/23 Alissa Perez PA-C [address] [place] [address] Physician Commercial Construction Superintendent Surgery 09/04/23 Lakshmi Wilhelm PA-C [address] [place] [address] Physician Commercial Construction Superintendent Urology 09/16/23 Aidee Valero PA-C [address] [place] [address] Assigned Musculoskeletal Provider 04/17/24 02/14/25 Carlos Joyner MD [address] [place] [address] Urology 01/26/25 Jadon Floyd MD [address] [place] [address] Physician Physical Medicine and Rehabilitation 01/31/25 Tanisha Marlow [facility]0 [facility] [address] 03/30/24 documented as of this encounter
--- OUTSIDE RECORDS SUMMARY | 2025-02-27 01:56 | XMS_ITS | Encounter Summary ---
Author Organization [facility] Address [address] [place] [address] Care Team Providers Care Aircraft Cylinder Mechanic Name Role Phone Carlos Joyner MD Unavailable + [phone] Jadon Murray MD Unavailable [phone] Maru Villagomez RN Unavailable Unavailable Ang Slade MD Unavailable +[phone] Carlos Joyner MD Unavailable +[phone] Ang Slade MD Unavailable [phone] Lakshmi Wilhelm-C Unavailable +[phone] Heladio Willoughby MD Primary Care Provider [phone] Heladio Willoughby MD Unavailable Alissa Perez PA-C Unavailable [phone] Lakshmi Wilhelm-Juan A Unavailable [phone] Aidee Valero PA-C Unavailable +[phone] Carlos Joyner MD Unavailable + [phone] Jadon Floyd MD Unavailable +[phone] Cayden Bejarano MD Unavailable Encounter Details Date Type Department Care Team (Late st Contact Info) Description 09/27/[address] [address] Lisette Mariee Social History Tobacco [...] Recorded PHQ-2 Score 0 09/13/2024 [facility] - Occupational Stress [...] [facility] [address] 3rd [place] [address] Jadon Floyd MD [address] [place] [address] 03/23/2025 12:45 PM CDT Appointment [facility] [address] [facility] [address] [place] [address] [place] [address] [address] [place] [address] 03/23/2025 1:30 PM CDT Hospital Encounter [facility] [address] [place] [address] Cayden Bejarano [place] [address] [place] [address] 03/25/2025 10:20 AM CDT Virtual Visit [facility] [place] [address] [place], [place] [address] [place] [address] [place] [address] [address] [place] [address] 04/04/2025 12:00 PM GENERAL LOT ATTENDANT Office Visit [facility] [place] [address] [place] [address] Sugey Mccoy, MANAGER [facility] [address] [place] [address] [address] [place] [address] 05/30/2025 10:20 AM GENERAL LOT ATTENDANT Appointment [facility] [address] [facility] [address] [place] [address] Carlos Joyner MD [address] [place] [address] 713595 05/31/2025 2:00 PM GENERAL LOT ATTENDANT Virtual Visit [facility] Clinic [place] 909 [facility] 4th [place] [address] Carlos Joyner MD [address] [place] [address] 07/25/2025 11:00 AM GENERAL LOT ATTENDANT Office Visit [facility] [address] [place] [address] [place] [address] [place], [place] 5293868 documented as of this encounter Visit Diagnoses Not on filedocumented in this encounter Care Teams Aircraft Cylinder Mechanic Relationship Specialty Start [place] [address] [place] [address] PCP - General 03/05/23 Carlos Joyner MD [address] [place] [address] Urology 12/09/19 Jadon Murray MD [facility] 2530 [facility] 550 [place] [address] Referring Physician Pediatric Surgery 12/09/19 Maru Villagomez, RN Registered Nurse 12/10/19 Ang Slade MD 420 [facility] 394 [place], [place] 859[address] MD Urology 04/24/20 Carlos Joyner MD [address] [place] [address] [phone] Assigned Surgical Provider 12/24/20 Ang Slade MD 420 [facility] 394 [place], [place] 824595 MD Urology 12/18/22 Lakshmi Wilhelm PA-C [address] [place] [address] 711195 Physician Audit Spec Urology 02/03/23 [place] [address] [place] [address] Assigned PCP 02/06/23 Alissa Perez PA-C [address] [place] [address] 519195 Physician Audit Spec Surgery 09/04/23 Lakshmi Wilhelm PA-C [address] [place] [address] 279095 Physician Audit Spec Urology 09/16/23 Aidee Valero PA-C [address] [place] [address] Assigned Musculoskeletal Provider 04/17/24 02/14/25 Carlos Joyner MD [address] [place] [address] Urology 01/26/25 Jadon Floyd MD [address] [place] [address] Physician Physical Medicine and Rehabilitation 01/31/25 [place] [address] [place] [address] Assigned Musculoskeletal Provider 02/15/25 Tanisha Marlow 4120 [facility] [address] 03/30/24 documented as of this encounter
--- OUTSIDE RECORDS SUMMARY | 2025-02-27 01:56 | XMS_ITS | Encounter Summary ---
Author Organization [facility] Address [address] [place] [address] Care Team Providers Care Field Artillery Operations Man Name Role Phone Carlos Joyner MD Unavailable + [phone] Jadon Murray MD Unavailable [phone] Maru Villagomez RN Unavailable Unavailable Ang Slade MD Unavailable +[phone] Carlos Joyner MD Unavailable +[phone] Ang Slade MD Unavailable [phone] Lakshmi Wilhelm-C Unavailable +[phone] Heladio Willoughby MD Primary Care Provider [phone] Heladio Willoughby MD Unavailable Alissa ePrez PA-C Unavailable [phone] Lakshmi Wilhelm-C Unavailable +[phone] Aidee Valero PA-C Unavailable +[phone] Carlos Joyner MD Unavailable +[phone] Jadon Floyd MD Unavailable +[phone] Cayden Bejarano MD Unavailable Encounter Details Date Type Department Care Team (Late st Contact Info) Description 02/08/2025 [facility] Sports Medicine [address] [place], [place] 46[address] [place] [address] [place] [address] Social History Tobacco Use Types Packs/Day Years [...] Answer Date Recorded PHQ-2 Score 0 09/13/2024 [facility]at [facility] - [...] [facility] [address] [phone] Jadon Floyd MD [address] [place] [address] 529365 03/23/2025 12:45 PM CDT Appointment [facility] Imaging [address] [place] [address] [place]den [place]jar[place] [address] [place] [address] [address] [place] [address] 03/23/2025 1:30 PM CDT Hospital Encounter [facility] Imaging [address] [place] [phone] [place] [address] [place] [address] 03/25/2025 10:20 AM CDT Virtual Visit [facility] [place] [address] [facility] [address] [place] [address] [place] [address] [place] [address] 04/04/2025 12:00 PM TRACTOR DRILL OPERATOR Office Visit [facility] [place] [address] [facility] [place] [address] Sugey Mccoy APRN [facility] [address] [place] [address] [address] [place] [address] 05/30/2025 10:20 AM TRACTOR DRILL OPERATOR Appointment [facility] Imaging [address] [facility] [address] [place] [address] Carlos Joyner MD [address] [place] [address] 758875 05/31/2025 2:00 PM TRACTOR DRILL OPERATOR Virtual Visit [facility] [address] 4th [place] [address] Carlos Joyner MD [address] [place] [address] 07/25/2025 11:00 AM TRACTOR DRILL OPERATOR Office Visit [place] [address]9975 [place] [address] [place] [address] [place] [address] documented as of this encounter Visit Diagnoses Not on filedocumented in this encounter Care Teams Field Artillery Operations Man Relationship Specialty Start [place] [address] [place] [address] PCP - General 03/05/23 Carlos Joyner MD [address] [place] [address] 813285 Urology 12/09/19 Jadon Murray MD [facility] [address] [phone] Referring Physician Pediatric Surgery 12/09/19 Maru Villagomez, RN Registered Nurse 12/10/19 Ang Slade MD [address] [place] [address] 855255 Urology 04/24/20 Carlos Joyner MD [address] [place] [address] 034595 Assigned Surgical Provider 12/24/20 Ang Slade MD [address] [place] [address] Urology 12/18/22 Lakshmi Wilhelm PA-C [address] [place] [address] 154145 Physician Paralegal Instructor Urology 02/03/23 [place] [address] [place] [address] Assigned PCP 02/06/23 Alissa Perez PA-C [address] [place] [address] Physician Paralegal Instructor Surgery 09/04/23 Lakshmi Wilhelm PA-C [address] [place] [address] 89683 Physician Paralegal Instructor Urology 09/16/23 Aidee Valero PA-C [address] [place] [address]67 Assigned Musculoskeletal Provider 04/17/24 02/14/25 Carlos Joyner MD [address] [place] [address] Urology 01/26/25 Jadon Floyd MD [address] [place] [address] Physician Physical Medicine and Rehabilitation 01/31/25 [place] [address] [place] [address] Assigned Musculoskeletal Provider 02/15/25 Tanisha Marlow 4[address] [facility] [address] 03/30/24 documented as of this encounter
--- OUTSIDE RECORDS SUMMARY | 2025-02-27 01:56 | XMS_ITS | Encounter Summary ---
Author Organization [place] Address [address] [place] [address] Care Team Providers Care Deck Molder Name Role Phone Carlos Joyner MD Unavailable +[phone] Jadon Murray MD Unavailable +[phone] Maru Villagomez RN Unavailable Unavailable Ang Slade MD Unavailable +[phone] Carlos Joyner MD Unavailable +[phone] Ang Slade MD Unavailable +- [phone] Lakshmi Wilhelm-C Unavailable +[phone] Heladio Willoughby MD Primary Care Provider +[phone] Heladio Willoughby MD Unavailable Alissa Perez PA-C Unavailable [phone] VtLakshmi morales-C Unavailable +[phone] Aidee Valero PA-C Unavailable [phone] Carlos Joyner MD Unavailable +[phone] Jadon Floyd MD Unavailable +[phone] Encounter Details Date Type Department Care [...] Answer Date Recorded PHQ-2 Score 0 09/13/2024 [facility] Occupat ional Health - [...] 03/03/2025 9:00 AM CDT Office Visit [facility] Physical Medicine and Rehabilitation Clinic [address] [phone] Jadon Floyd MD [address] [place] [address] 03/23/2025 12:45 PM CDT Appointment [facility] [address] [facility] [address] [place] [address] [place] [address] [facility] [address] [place] [address] 03/23/2025 1:30 PM CDT Hospital Encounter [facility] Imaging [address] [place] [address] [place] [address] [facility] [address] [place] [address] 03/25/2025 10:20 AM CDT Virtual Visit [facility] Sports Medicine [facility] [place] [address] [place], [place] [address] [place] [address] [place]den [place]jar[place] [address] [place] [address] NANCY [address] [place] [address] 04/04/2025 12:00 PM HAIRSPRING II INSPECTOR Office Visit [facility] [place] [address] [place] [address] DariusElvirginia Elder, PAVING BLOCK [facility] [address] [place], [place] 114[address] 05/30/2025 10:20 AM HAIRSPRING II INSPECTOR Appointment [facility] Imaging [address] [place] [address] Carlos Joyner MD [address] [place] [address] 949475 05/31/2025 2:00 PM HAIRSPRING II INSPECTOR Virtual Visit [facility] Urology [facility] [place] [address] [facility] 4th [place] [address] Carlos Joyner MD [address] [place] [address] [id number] 07/25/2025 11:00 AM HAIRSPRING II INSPECTOR Office Visit [facility] [address] [place] [address] [place] [address] [place] [address] documented as of this encounter Visit Diagnoses Not on filedocumented in this encounter Care Teams Deck Molder Relationship Specialty Start Date [place] [id number] [place] [address] PCP - General 03/05/23 Carlos Joyner MD [address] [place] [address] [id number] Urology 12/09/19 Jadon Murray MD [facility] 2530 [facility] 550 [place] [address] Referring Physician Pediatric Surgery 12/09/19 Maru Villagomez, RN Registered Nurse 12/10/19 Ang Slade MD [address] [place] [address] 394 [place] [address] Urology 04/24/20 Carlos Joyner MD [address] [place] [address] 997575 Assigned Surgical Provider 12/24/20 Ang Slade MD [address] [place] [address] 394 [place] [address] Urology 12/18/22 Lakshmi Wilhelm PA-C [address] [place] [address] 773635 Physician Medical Assisting Instructor Urology 02/03/23 [place] [address] [place] [address] Assigned PCP 02/06/23 Alissa Perez PA-C [address] [place] [address] 096715 Physician Medical Assisting Instructor Surgery 09/04/23 Lakshmi Wilhelm PA-C [address] [place] [address] 198765 Physician Medical Assisting Instructor Urology 09/16/23 Aidee Valero PA-C [address] [place] [address] 461225 Assigned Musculoskeletal Provider 04/17/24 02/14/25 Carlos Joyner MD [address] [place] [address] 694525 Urology 01/26/25 Jadon Floyd MD [address] [place] [address] 473165 Physician Physical Medicine and Rehabilitation 01/31/25 Tanisha Marlow 4120 [facility] [address] 03/30/24 documented as of this encounter
--- OUTSIDE RECORDS SUMMARY | 2025-02-27 01:56 | XMS_ITS | Encounter Summary ---
Author Organization [place] Address [address] [place] [address] Care Team Providers Care Senior Construction Project Manager Name Role Phone Carlos Joyner MD Unavailable + [phone] Jadon Murray MD Unavailable +[phone] Maru Villagomez RN Unavailable Unavailable Ang Slade MD Unavailable +- [phone] Carlos Joyner MD Unavailable + [phone] Ang Slade MD Unavailable +- [phone] Lakshmi Wilhelm-C Unavailable +[phone] Heladio Willoughby MD Primary Care Provider +[phone] Heladio Willoughby MD Unavailable Alissa Perez PA-C Unavailable [phone] Lakshmi Wilhelm PA-C Unavailable +- [phone] Aidee Valero PA-C Unavailable [phone] Carlos Joyner MD Unavailable + [phone] Jadon Floyd MD Unavailable +[phone] Cayden Bejarano MD Unavailable Encounter Details Date Type Department Care Team (Late st Contact Info) Description 09/23/[address] [address] [place] [address] [place] [address] Social History Tobacco Use Types Packs/Day Years [...] PHQ-2 Score 0 09/13/2024 [facility] [...] routing back. Heladio Elder. MD [facility] * Telephone Encounter - Kasia Kang - 09/24/2024 2:54 PM CDT Referral is still pending. Routing to provider to sign off and route back to TC's to fax. Kasia Kang Lead Technical Cable Jointer [facility] [place] documented in this encounter Plan of Treatment Upcoming Encounters Date Type Department Care Team (Late st Contact Info) Description 03/03/2025 9:00 AM CDT Office Visit [facility] Physical Medicine and Rehabilitation Clinic [address] 3rd [place] [address] Jadon Floyd MD [address] [place] [address] 282655 03/23/2025 12:[address] [facility] [address] [facility] [address] [place] [address] [place] [address] [place] [address] 03/23/2025 1:30 PM CDT Hospital Encounter [facility] [address] [facility] [address] [place] [address] [place] [address] [place] [address] 03/25/2025 10:20 AM CDT Virtual Visit [facility] Sports Medicine [facility] [address] [place] [address] [address] [place] [address] [place] [address] [place] [address] 04/04/2025 12:00 PM MECHANICAL PRESS OPERATOR Office Visit [facility] [address] [phone] Sugey Mccoy, ESL TUTOR [address] 065914 05/30/2025 10:20 AM MECHANICAL PRESS OPERATOR Appointment [facility] [address] [facility] [address] [place] [address] Carlos Joyner MD [address] [place] [address] 05/31/2025 2:00 PM MECHANICAL PRESS OPERATOR Virtual Visit [facility] Urology [address] 4th [place] [address] Carlos Joyner MD [address] [place] [address] 07/25/2025 11:00 AM MECHANICAL PRESS OPERATOR Office Visit [facility] [address] [place] [address]16[address] [place] [address] [address] [place] [phone] documented as of this encounter Visit Diagnoses Not on filedocumented in this encounter Care Teams Senior Construction Project Manager Relationship Specialty Start [place] [address] [address] [place] [phone] PCP - General 03/05/23 Carlos Joyner MD [address] [place] [address] 299125 Urology 12/09/19 Jadon Murray MD [facility] [address] [address] Referring Physician Pediatric Surgery 12/09/19 Maru Villagomez, RN Registered Nurse 12/10/19 Ang Slade MD [address] [place] [address] 327555 Urology 04/24/20 Carlos Joyner MD [address] [place] [address] 11346 Assigned Surgical Provider 12/24/20 Ang Slade MD [address] [place] [address] 435245 Urology 12/18/22 Lakshmi Wilhelm PA-C [address] [place] [address] 368855 Physician Teradata Architect Urology 02/03/23 [place] [address] [place] [address] Assigned PCP 02/06/23 Alissa Perez PA-C [address] [place] [address] 382565 Physician Teradata Architect Surgery 09/04/23 Lakshmi Wilhelm PA-C [address] [place] [address] 018975 Physician Teradata Architect Urology 09/16/23 Aidee Valero PA-C [address] [place] [address] 446915 Assigned Musculoskeletal Provider 04/17/24 02/14/25 Carlos Joyner MD [address] [place] [address] 301155 Urology 01/26/25 Jadon Floyd MD [address] [place] [address] 021155 Physician Physical Medicine and Rehabilitation 01/31/25 [place] [address] [place] [address] Assigned Musculoskeletal Provider 02/15/25 Tanisha Marlow 4120 [facility] [address] 03/30/24 documented as of this encounter
--- OUTSIDE RECORDS SUMMARY | 2025-02-27 01:56 | XMS_ITS | Encounter Summary ---
Author Organization [place] Address [address] [place] [address]23 Care Team Providers Care Story Reader Name Role Phone Carlos Joyner MD Unavailable +[phone] Jadon Murray MD Unavailable +[phone] Maru Villagomez RN Unavailable Unavailable Ang Slade MD Unavailable +[phone] Carlos Joyner MD Unavailable +[phone] Ang Slade MD Unavailable [phone] Lakshmi Wilhelm-C Unavailable +[phone] Heladio Willoughby MD Primary Care Provider [phone] Heladio Willoughby MD Unavailable Alissa Perez PA-C Unavailable [phone] Lakshmi Wilhelm-C Unavailable +[phone] Aidee Valero PA-C Unavailable +[phone] Carlos Joyner MD Unavailable +[phone] Jadon Floyd MD Unavailable +[phone] Cayden Bejarano MD Unavailable Encounter Details Date Type Department Care Team (Late st Contact Info) Description 02/03/2025 [facility] Urology [place] [address] [facility] 4th [place] [address] Carlos Joyner MD [address] [place] [address] Social History Tobacco Use Types Packs/Day Years [...] Pratik Oneal - 02/03/2025 10:27 AM CDT [facility] Phone Message May a detailed [...] [facility] Physical Medicine [facility] Rehabilitation Clinic [address]rd [place] [address] Jadon Floyd MD [address] [place] [address] 03/23/2025 12:45 PM CDT Appointment [facility] [address] [facility] [address] [place] [address] [place] [address] [place] [address] 03/23/2025 1:30 PM CDT Hospital Encounter [facility] [address] [facility] [address] [place] [address] [place] [address] [place] [address] 03/25/2025 10:20 AM CDT Virtual Visit [facility] Sports Medicine [facility] [address] [place] [address] [address] [place] [address] [place] [address] [place] [address] 04/04/2025 12:00 PM PETROLEUM TERMINAL PLANT OPERATOR Office Visit [facility] Sleep [address] [address] Sugey Mccoy, AFTER SCHOOL TUTOR [address] [address] 05/30/2025 10:20 AM PETROLEUM TERMINAL PLANT OPERATOR Appointment [facility] [address] [facility] [address] [place] [address] Carlos Joyner MD [address] [place] [address] 510195 05/31/2025 2:00 PM PETROLEUM TERMINAL PLANT OPERATOR Virtual Visit [facility] Urology Clinic [address] [phone] Carlos Joyner MD 909 [place], [place] 546685 07/25/2025 11:00 AM PETROLEUM TERMINAL PLANT OPERATOR Office Visit [facility] [address] [place] [address] [place] [address] [place] [place] [phone] documented as of this encounter Visit Diagnoses Not on filedocumented in this encounter Care Teams Story Reader Relationship Specialty [place] [address] [address] [place], [place] [phone] PCP - General 03/05/23 Carlos Joyner MD [address] [place] [address] Urology 12/09/19 Jadon Murray MD [facility] [address] [address] Referring Physician Pediatric Surgery 12/09/19 Maru Villagomez RN Registered Nurse 12/10/19 Ang Slade MD 420 [facility] 394 [place] [address] Urology 04/24/20 Carlos Joyner MD [address] [place] [address] 99324 Assigned Surgical Provider 12/24/20 Ang Slade MD [address] [place] [address] 9[address] Urology 12/18/22 Lakshmi Wilhelm PA-C [address] [place] [address] Physician Print Shop Stenographer Urology 02/03/23 [place] [address] [place] [address] Assigned PCP 02/06/23 Alissa Perez PA-C [address] [place] [address]72 Physician Print Shop Stenographer Surgery 09/04/23 Lakshmi Wilhelm PA-C [address] [place] [address] 96504 Physician Print Shop Stenographer Urology 09/16/23 Aidee Valero PA-C [address] [place] [address] 61634 Assigned Musculoskeletal Provider 04/17/24 02/14/25 Carlos Joyner MD [address] [place] [address]39 Urology 01/26/25 Jadon Floyd MD [address] [place] [address] 729675 Physician Physical Medicine and Rehabilitation 01/31/25 [place] [address] [place] [address] Assigned Musculoskeletal Provider 02/15/25 Tanisha Marlow 4120 [facility] [address] 03/30/24 documented as of this encounter
--- OUTSIDE RECORDS SUMMARY | 2025-02-27 01:56 | XMS_ITS | Encounter Summary ---
Author Organization [place] Address [address] [place] [address] Care Team Providers Care Mask Layout Designer Name Role Phone Carlos Joyner MD Unavailable +[phone] Jadon Murray MD Unavailable +[phone] Maru Villagomez RN Unavailable Unavailable Ang Slade MD Unavailable +[phone] Carlos Joyner MD Unavailable +[phone] Ang Slade MD Unavailable +[phone] Lakshmi WilhelmC Unavailable +[phone] Heladio Willoughby MD Primary Care Provider [phone] Heladio Willoughby MD Unavailable Alissa Perez PA-Juan A Unavailable [phone] Lakshmi Wilhelm PA-C Unavailable +[phone] Carlos Joyner MD Unavailable +[phone] Jadon Floyd MD Unavailable +[phone] Cayden Bejarano MD Unavailable Reason for Visit * Reason Onset Date Comments Appointment 02/16/2025 TE on 02/08/25 in structing Pt to schedule with Elissa Martinez CNP. Stitch Bonder Machine Operator Helper does not have access to this provider. Encounter Details Date Type Department Care Team (Late st Contact Info) Description 02/16/2025 Telephone [facility] Urology [address] [place] [address] Carlos Joyner MD [address] [place] [address] 724965 Appointment (TE on 02/08/25 instructing Pt to schedule with Elissa Martinez CNP. Stitch Bonder Machine Operator Helper does not have access to this provider. [...] than three times a week 07/16/2024 Attends Congregational Services Not on file 07/16 Active Member of Clubs or Organizations Not on f ile 07/16/2024 Attends Club or Organization Meetings Not on antelmo e 07/16/2024 Marital Status Not on file 07/16/2024 PHQ-2 Answer Date Recorded PHQ-2 Score 0 09/13/2024 [facility] [place] of Occupat ional Health - Occupational Stress [...] Pt to schedule with Elissa Martinez CNP. Stitch Bonder Machine Operator Helper does not have access to this provider. [...] [facility] [address] 3rd [place] [address] Jadon Floyd MD [address] [place] [address] 046965 03/23/2025 12:45 PM CDT Appointment [facility] [address] [facility] [address] [place] [address] Cayden Bejarano MD [address] [place] [address] [address] [place] [address] 03/23/2025 1:30 PM CDT Hospital Encounter [facility] Imaging [address] [place] [address] Cayden Bejarano MD [address] [place], [place] [address]A[address] [place] [address] 03/25/2025 10:20 AM CDT Virtual Visit [facility] Sports Medicine Clinic [place] [address] [place] [address] Drive [address] [place] [address] [place] [address] [place] [address] 04/04/2025 12:00 PM CIGAR HEAD PIERCER Office Visit [facility] [address] [phone] Sugey Mccoy, STOCK CHASER [address] 447224 05/30/2025 10:20 AM CIGAR HEAD PIERCER Appointment [facility] Imaging [address] [place] [address] Carlos Joyner MD [address] [place] [address] 440405 05/31/2025 2:00 PM CIGAR HEAD PIERCER Virtual Visit [facility] Urology Clinic [address] 4th [place] [address] Carlos Joyner MD [address] [place] [address] 901265 07/25/2025 11:00 AM CIGAR HEAD PIERCER Office [facility] [address] [place] [address] [place] [address] [place], [place] [phone] documented as of this encounter Visit Diagnoses Not on filedocumented in this encounter Care Teams Mask Layout Designer Relationship Specialty [place] [address] [place] [address] PCP - General 03/05/23 Carlos Joyner MD [address] [place] [address] Urology 12/09/19 Jadon Murray MD [facility] [address] [address] Referring Physician Pediatric Surgery 12/09/19 Maru Villagomez, OTILIO Registered Nurse 12/10/19 Ang Slade MD [address] [place] [address] 262025 Urology 04/24/20 Carlos Joyner MD [address] [place] [address] 346225 Assigned Surgical Provider 12/24/20 Ang Slade MD [address] [place] [address] 13828 Urology 12/18/22 Lakshmi Wilhelm PA-C [address] [place] [address] 74965 Physician Quality Control Technician Urology 02/03/23 [place] [address] [place] [address] Assigned PCP 02/06/23 Alissa Perez PA-C [address] [place] [address] 425505 Physician Quality Control Technician Surgery 09/04/23 Lakshmi Wilhelm PA-C [address] [place] [address] 39963 Physician Quality Control Technician Urology 09/16/23 Carlos Joyner MD [address] [place] [address] 398365 Urology 01/26/25 Jadon Floyd MD [address] [place] [address] 790465 Physician Physical Medicine and Rehabilitation 01/31/25 [place] [address] [place] [address] Assigned Musculoskeletal Provider 02/15/25 Tanisha Marlow 4120 [facility] [address] 03/30/24 documented as of this encounter
--- OUTSIDE RECORDS SUMMARY | 2025-02-27 01:56 | XMS_ITS | Encounter Summary ---
Author Organization [place] Address [address] [place] [address]47 Care Team Providers Care Valve Setter Name Role Phone Carlos Joyner MD Unavailable + [phone] Jadon Murray MD Unavailable +[phone] Maru Villagomez RN Unavailable Unavailable Ang Slade MD Unavailable +[phone] Carlos Joyner MD Unavailable +[phone] Ang Slade MD Unavailable +[phone] Lakshmi Wilhelm-C Unavailable +[phone] Heladio iWlloughby MD Primary Care Provider [phone] Heladio Willoughby MD Unavailable Alissa Perez PA-C Unavailable [phone] Lakshmi Wilhelm-C Unavailable +[phone] Aidee Valero PA-C Unavailable +[phone] Carlos Joyner MD Unavailable +[phone] Jadon Floyd MD Unavailable +[phone] Cayden Bejarano MD Unavailable Encounter Details Date Type Department Care Team (Late st Contact Info) Description 10/01/2024 [facility] Urology Clinic [place] [address] [facility] 4th [place] [address] Hattie Wing RN Social History [...] PHQ-2 Score 0 09/13/2024 [facility] of Occupat ional Health - Occupational [...] [facility] [place] [facility] [address]rd [place] [address] Jadon Floyd MD [address] [place] [address] 03/23/2025 12:45 PM CDT Appointment [facility] [address] [facility] [address] [place] [address] [place] [address] [place] [address] 03/23/2025 1:30 PM CDT Hospital Encounter [facility] [address] [place] [address] Cayden Bejarano [place] [address]851[address] [place] [address] 03/25/2025 10:20 AM CDT Virtual Visit [facility] Sports Medicine Clinic [place] [address] [place], [place] [address] [place] [address] [place] [address] [address] [place] [address] 04/04/2025 12:00 PM REFRIGERATION ENGINEERING TEACHER Office Visit [facility] [place] [address] [place] [address] Sugey Mccoy, DIRECTOR OF HOUSING AND ENERGY SERVICES [facility] [address] [place] [address] [address] [place] [address] 05/30/2025 10:20 AM REFRIGERATION ENGINEERING TEACHER Appointment [facility] [address] [facility] [address] [place] [address] Carlos Joyner MD [address] [place] [address] 766115 05/31/2025 2:00 PM REFRIGERATION ENGINEERING TEACHER Virtual Visit [facility] Urology Clinic [place] 909 [facility] 4th [place] [address] Carlos Joyner MD [address] [place] [address] 142105 07/25/2025 11:00 AM REFRIGERATION ENGINEERING TEACHER Office Visit [facility] [address] [place] [address] [place] [address] [place], [place] [phone] documented as of this encounter Visit Diagnoses Not on filedocumented in this encounter Care Teams Valve Setter Relationship Specialty Start [place] [address] [place] [address] PCP - General 03/05/23 Carlos Joyner MD [address] [place] [address] Urology 12/09/19 Jadon Murray MD [facility] [address] [facility] 550 [place] [address] Referring Physician Pediatric Surgery 12/09/19 Maru Villagomez, RN Registered Nurse 12/10/19 Ang Slade MD 420 [facility] 394 [place], [place] 454445 MD Urology 04/24/20 Carlos Joyner MD [address] [place] [address] [id number] Assigned Surgical Provider 12/24/20 Ang Slade MD 420 [facility] 394 [place], [place] 767595 MD Urology 12/18/22 Lakshmi Wilhelm PA-C [address] [place] [address] 606475 Physician Refinery Operator Helper Urology 02/03/23 [place] [address] [place] [address] Assigned PCP 02/06/23 Alissa Perez PA-C [address] [place] [address] 301615 Physician Refinery Operator Helper Surgery 09/04/23 Lakshmi Wilhelm PA-C [address] [place] [address] 284005 Physician Refinery Operator Helper Urology 09/16/23 Aidee Valero PA-C [address] [place] [address] 11783 Assigned Musculoskeletal Provider 04/17/24 02/14/25 Carlos Joyner MD [address] [place] [address] Urology 01/26/25 Jadon Floyd MD [address] [place] [address] Physician Physical Medicine and Rehabilitation 01/31/25 [place] [address] [place] [address] Assigned Musculoskeletal Provider 02/15/25 Tanisha Marlow 4120 [facility] [address] 03/30/24 documented as of this encounter
--- OUTSIDE RECORDS SUMMARY | 2025-02-27 01:56 | XMS_ITS | Encounter Summary ---
Author Organization [place] Address [address] [place] [address] Care Team Providers Care Events Solutions Consultant Name Role Phone Carlos Joyner MD Unavailable [phone] Jadon Murray MD Unavailable [phone] Maru Villagomez RN Unavailable Unavailable Ang Slade MD Unavailable +[phone] Carlos Joyner MD Unavailable +[phone] Ang Slade MD Unavailable [phone] Lakshmi Wilhelm-C Unavailable +[phone] Heladio Willoughby MD Primary Care Provider [phone] Heladio Willoughby MD Unavailable Alissa Perez PA-C Unavailable [phone] CtLakshmi morales PA-C Unavailable [phone] Aidee Valero PA-C Unavailable +[phone] Carlos Joyner MD Unavailable +[phone] Jadon Floyd MD Unavailable [phone] Reason for Visit * Reason Onset Date Comments Prior Auth - Medication 02/03/2025 Acetohyd roxamic Acid (LITHOSTAT) 250 MG TABS - [place] APPROVED Encounter Details Date Type Department Care Team (Late st Contact Info) Description 02/03/2025 [facility] [place] [id number] [address] Carlos Joyner MD [address] [place] [address] Prior Auth - Medication (Acetohydroxamic [...] 05/25/2025 Approved Dose/Quantity: Reference #: Insurance Company: [employer] Part D - Expected CoPay: $ CoPay Card Available: No Financial Assistance Needed: Which Pharmacy is filling the prescription: [id number] [place] [address] Pharmacy Notified: YES Patient Notified: Instructed pharmacy to notify patient when script is ready to knot picker cloth/ship. * Telephone Encounter - Cirilo Ferreira - [...] Part D - Pharmacy Filling the Rx: [facility] #[id number] [place] [address] Filling Pharmacy Filling Pharmacy Start Date: 02/03/2025 Outgoing fax to insurance: Received question set for PA already in process. Answered question set and faxed back to [employer] via Right fax. I attached chart notes as well. documented in this encounter Plan of Treatment Upcoming Encounters Date Type Department Care Team (Late st Contact Info) Description 03/03/2025 9:00 AM CDT Office Visit [facility] [address] [phone] Jadon Floyd MD [address] [place] [address] 189675 03/23/2025 12:45 PM CDT Appointment [facility] Imaging [address] [place] [address] [place] [address] [place] [address] 03/23/2025 1:30 PM CDT Hospital Encounter [facility] Imaging [address] [facility] [facility] [address] [facility] [address] [place] [address] [place] [address] [place] [address] 03/25/2025 10:20 AM CDT Virtual Visit [facility] [place] [address] [place] [address] [place] [address] [place] [address] 04/04/2025 12:00 PM INTEGRATION SPECIALIST Office Visit [facility] [address] [place] [address] [phone] Sugey Mccoy, HEALTH OCCUPATIONS INSTRUCTOR [address] 081594 05/30/2025 10:20 AM INTEGRATION SPECIALIST Appointment [facility] Imaging [address] [facility] [address] [place] [address] Carlos Joyner MD [address] [place] [address] 204925 05/31/2025 2:00 PM INTEGRATION SPECIALIST Virtual Visit [facility] Urology [address] 4th [place] [phone] Carlos Joyner MD [address] [place] [address] 934215 07/25/2025 11:00 AM INTEGRATION SPECIALIST Office Visit [address] [address] [place] [address] [place] [address] documented as of this encounter Visit Diagnoses Not on filedocumented in this encounter Care Teams Events Solutions Consultant Relationship Specialty Start [place] [address] [address] [place] [id number] PCP - General 03/05/23 Carlos Joyner MD [address] [place] [address] 621015 Urology 12/09/19 Jadon Murray MD [facility] 2530 [facility] 550 [place], [place] [phone] Referring Physician Pediatric Surgery 12/09/19 Maru Villagomez, RN Registered Nurse 12/10/19 Ang Slade MD [address] [place] [address] 911635 Urology 04/24/20 Carlos Joyner MD [address] [place] [address] 201295 Assigned Surgical Provider 12/24/20 Ang Slade MD [address] [place] [address] Urology 12/18/22 Lakshmi Wilhelm PA-C [address] [place] [address] 58223 Physician Horse Racetrack Manager Urology 02/03/23 [place] [address] [place] [address] Assigned PCP 02/06/23 Alissa Perez PA-C [address] [place] [address] 00567 Physician Horse Racetrack Manager Surgery 09/04/23 Lakshmi Wilhelm PA-C [address] [place] [address]367 Physician Horse Racetrack Manager Urology 09/16/23 Aidee Valero PA-C [address] [place] [address] 12114 Assigned Musculoskeletal Provider 04/17/24 02/14/25 Carlos Joyner MD [address] [place] [address] Urology 01/26/25 Jadon Floyd MD [address] [place] [address] Physician Physical Medicine and Rehabilitation 01/31/25 Tanisha Marlow 4120 [facility] [address] 03/30/24 documented as of this encounter
--- OUTSIDE RECORDS SUMMARY | 2025-02-27 01:56 | XMS_ITS | Encounter Summary ---
Author Organization [place] Address [address] [place] [address] Care Team Providers Care Mangle Tender Name Role Phone Carlos Joyner MD Unavailable [phone] Jadon Murray MD Unavailable [phone] Maru Villagomez RN Unavailable Unavailable Ang Slade MD Unavailable [phone] Carlos Joyner MD Unavailable +[phone] Ang Slade MD Unavailable [phone] Lakshmi Wilhelm-C Unavailable [phone] Heladio Willoughby MD Primary Care Provider [phone] Heladio Willoughby MD Unavailable Alissa Perez PA-C Unavailable [phone] WiLakshmi morales-C Unavailable [phone] Aidee Valero PA-C Unavailable [phone] Carlos Joyner MD Unavailable +[phone] Jadon Floyd MD Unavailable [phone] Encounter Details Date Type Department Care [...] [facility] [address] [phone] Jadon Floyd MD [address] [place] [address] 03/23/2025 12:[address] [facility] Imaging [address] [facility] [address] [place] [address] [place] [address] [facility] [address] [place] [address] 03/23/2025 1:30 PM CDT Hospital Encounter [facility] Imaging [address] [place] [phone] [place] [address] [facility] [address] [place] [address] 03/25/2025 10:20 AM CDT Virtual Visit [facility] [place] [address] [place], [place] [address] [place] [address] [place] [address] [place] [address] [address] [place] [address] 04/04/2025 12:00 PM MOLD LOFT WORKER Office Visit [facility] [place] [address] [place] [phone] DariusElvirginia Elder, [facility] [address] [place], [place] 540[address] 05/30/2025 10:20 AM MOLD LOFT WORKER Appointment [facility] Imaging [address] [place] [phone] Carlos Joyner MD [address] [place] [address] 078975 05/31/2025 2:00 PM MOLD LOFT WORKER Virtual Visit [facility] [place] 909 [facility] 4th [place] [phone] Carlos Joyner MD [address] [place] [address] [id number] 07/25/2025 11:00 AM MOLD LOFT WORKER Office Visit [facility] [address] [place] [address] [place] [address] [place] [address] documented as of this encounter Visit Diagnoses Not on filedocumented in this encounter Care Teams Mangle Tender Relationship Specialty Start Date End [place] Helad[place] [id number] [place] [address] PCP - General 03/05/23 Carlos Joyner MD [address] [place] [address] [id number] Urology 12/09/19 Jadon Murray MD [facility] 2530 [facility] 550 [place] [address] Referring Physician Pediatric Surgery 12/09/19 Maru Villagomez, RN Registered Nurse 12/10/19 Ang Slade MD [address] [place] [address] 394 [place] [address] Urology 04/24/20 Carlos Joyner MD [address] [place] [address] 506695 Assigned Surgical Provider 12/24/20 Ang Slade MD [address] [place] [address] 394 [place] [address] Urology 12/18/22 Lakshmi Wilhelm PA-C [address] [place] [address] 784155 Physician Enterprise Manager Urology 02/03/23 [place] [address] [place] [address] Assigned PCP 02/06/23 Alissa Perez PA-C [address] [place] [address] 560815 Physician Enterprise Manager Surgery 09/04/23 Lakshmi Wilhelm PA-C [address] [place] [address] 759235 Physician Enterprise Manager Urology 09/16/23 Aidee Valero PA-C [address] [place] [address] 596975 Assigned Musculoskeletal Provider 04/17/24 02/14/25 Carlos Joyner MD [address] [place] [address] 689645 Urology 01/26/25 Jadon Floyd MD [address] [place] [address] 941415 Physician Physical Medicine and Rehabilitation 01/31/25 Tanisha Marlow 4120 [facility] [address] 03/30/24 documented as of this encounter
--- OUTSIDE RECORDS SUMMARY | 2025-02-27 01:56 | XMS_ITS | Encounter Summary ---
Author Organization [place] Address [address] [place] [address] Care Team Providers Care Creative Lead Name Role Phone Carlos oJyner MD Unavailable [phone] Jadon Murray MD Unavailable [phone] Maru Villagomez RN Unavailable Unavailable Ang Slade MD Unavailable [phone] Carlos Joyner MD Unavailable +[phone] Ang Slade MD Unavailable [phone] Lakshmi WilhelmC Unavailable [phone] Heladio Willoughby MD Primary Care Provider [phone] Heladio Willoughby MD Unavailable Alissa Perez-Juan A Unavailable [phone] Lakshmi Wilhelm PA-C Unavailable [phone] Carlos Joyner MD Unavailable [phone] Jadon Floyd MD Unavailable +[phone] Cayden [...] than three times a week 07/16/2024 Attends Confucianist Services Not on file 07/16 Active Member of Clubs or Organizations Not on f ile 07/16/2024 Attends Club or Organization Meetings Not on antelmo e 07/16/2024 Marital Status Not on file 07/16/2024 PHQ-2 Answer Date Recorded PHQ-2 Score 0 09/13/2024 [facility] [...] [facility] [address] [phone] Jadon Floyd MD [address] [place] [address] 03/23/2025 12:45 PM CDT Appointment [facility] [address] [facility] [address] [place] [address] [place] [address] [place] [address] 03/23/2025 1:30 PM CDT Hospital Encounter [facility] [address] [place] [address] [place]den [place]jar[place] [address] [place] [address] 03/25/2025 10:20 AM CDT Virtual Visit [facility] [place] [address] [place] [address] [place] [address] [place] [address] 04/04/2025 12:00 PM FIELD HUMAN RESOURCES MANAGER Office Visit [facility] [place] [address] [place] [address] Darius Elvirginia Elder, ARMATURE WINDER REPAIRER [facility] [address] [place], [place] 080[address] 05/30/2025 10:20 AM FIELD HUMAN RESOURCES MANAGER Appointment [facility] Imaging [address] [place] [phone] Carlos Joyner MD [address] [place] [address] 127965 05/31/2025 2:00 PM FIELD HUMAN RESOURCES MANAGER Virtual Visit [facility] [place] 909 [facility] 4th [place] [phone] Carlos Joyner MD [address] [place] [address] 07/25/2025 11:00 AM FIELD HUMAN RESOURCES MANAGER Office Visit [facility] [address] [place] [phone] [place] [address] [place] [address] documented as of this encounter Visit Diagnoses Not on filedocumented in this encounter Care Teams Creative Lead Relationship Specialty Start [place] [address] [place] [address] PCP - General 03/05/23 Carlos Joyner MD [address] [place] [address] Urology 12/09/19 Jadon Murray MD [facility] [address] [facility] 550 [place] [address] Referring Physician Pediatric Surgery 12/09/19 Maru Villagomez, RN Registered Nurse 12/10/19 Ang Slade MD [address] [place] [address] 394 [place], [place] 949105 Urology 04/24/20 Carlos Joyner MD [address] [place] [address] 905795 Assigned Surgical Provider 12/24/20 Ang Slade MD [address] [place] [address] 244035 Urology 12/18/22 Lakshmi Wilhelm PA-C [address] [place] [address] 886395 Physician Educational Diagnostician Urology 02/03/23 [place] [address] [place] [address] Assigned PCP 02/06/23 Alissa Perez PA-C [address] [place] [address] 923435 Physician Educational Diagnostician Surgery 09/04/23 Lakshmi Wilhelm PA-C [address] [place] [address] 674995 Physician Educational Diagnostician Urology 09/16/23 Carlos Joyner MD 909 [place], [place] 049915 Urology 01/26/25 Jadon Floyd MD 9 [place], [place] 840955 Physician Physical Medicine and Rehabilitation 01/31/25 [place] [address] [place] [address] Assigned Musculoskeletal Provider 02/15/25 Tanisha Marlow 4120 [facility] [address] 03/30/24 documented as of this encounter
--- OUTSIDE RECORDS SUMMARY | 2025-02-27 01:56 | XMS_ITS | Encounter Summary ---
Author Organization [place] Address [address] [place] [address] Care Team Providers Care Silk Screen Operator Name Role Phone Carlos Joyner MD Unavailable [phone] Jadon Murray MD Unavailable +[phone] Maru Villagomez RN Unavailable Unavailable Ang Slade MD Unavailable +[phone] Carlos Joyner MD Unavailable +[phone] Ang Slade MD Unavailable [phone] Lakshmi Wilhelm-C Unavailable [phone] Heladio Willoughby MD Primary Care Provider [phone] Heladio Willoughby MD Unavailable Alissa Perez PA-C Unavailable [phone] Lakshmi Wilhelm-C Unavailable [phone] Aidee Valero PA-C Unavailable [phone] Carlos Joyner MD Unavailable +[phone] Jadon Floyd MD Unavailable +[phone] Cayden Bejarano MD Unavailable Encounter Details Date Type Department Care Team (Late st Contact Info) Description 09/29/2024 [facility] Urology Clinic [place] 0[address]99 [facility] 4th [place] [address] Hattie Wing RN Social History [...] Answer Date Recorded PHQ-2 Score 0 09/13/2024 [facility] - Occupational [...] [facility] [address] 3rd [place] [phone] Jadon Floyd MD [address] [place] [address] 03/23/2025 12:45 PM CDT Appointment [facility] Imaging [address] [facility] [address] [place] [address] [place] [address] [place] [address] 03/23/2025 1:30 PM CDT Hospital Encounter [facility] Imaging [address] [place] [address] Cayden Bejarano [place] [address] [place] [address] 03/25/2025 10:20 AM CDT Virtual Visit [facility] [place] [address] [place], [place] [address] [place] [address] [place] [address] [address] [place] [address] 04/04/2025 12:00 PM DRYING UNIT FELTING MACHINE OPERATOR Office Visit [facility] [place] [address] [place] [address] Sugey Mccoy, MOVIE STUNT PERFORMER [facility] [address] [place] [address] [address] [place] [address] 05/30/2025 10:20 AM DRYING UNIT FELTING MACHINE OPERATOR Appointment [facility] Imaging [address] [facility] [address] [place] [address] Carlos Joyner MD [address] [place] [address] 864185 05/31/2025 2:00 PM DRYING UNIT FELTING MACHINE OPERATOR Virtual Visit [facility] [place] 909 [facility] 4th [place] [address] Carlos Joyner MD [address] [place] [address] 172415 07/25/2025 11:00 AM DRYING UNIT FELTING MACHINE OPERATOR Office Visit [facility] [address] [place] [address] [place] [address] [place], [place] 5227468 documented as of this encounter Visit Diagnoses Not on filedocumented in this encounter Care Teams Silk Screen Operator Relationship Specialty Start [place] [address] [place] [address] PCP - General 03/05/23 Carlos Joyner MD [address] [place] [address] Urology 12/09/19 Jadon Murray MD [facility] 2530 [facility] 550 [place] [address] Referring Physician Pediatric Surgery 12/09/19 Maru Villagomez, RN Registered Nurse 12/10/19 Ang Slade MD 420 [facility] 394 [place], [place] 319495 MD Urology 04/24/20 Carlos Joyner MD [address] [place] [address] [id number] Assigned Surgical Provider 12/24/20 Ang Slade MD 420 [facility] 394 [place], [place] 821285 MD Urology 12/18/22 Lakshmi Wilhelm PA-C [address] [place] [address] 005525 Physician Corporate Operations Compliance Manager Urology 02/03/23 [place] [address] [place] [address] Assigned PCP 02/06/23 Alissa Perez PA-C [address] [place] [address] 855705 Physician Corporate Operations Compliance Manager Surgery 09/04/23 Lakshmi Wilhelm PA-C [address] [place] [address] 951825 Physician Corporate Operations Compliance Manager Urology 09/16/23 Aidee Valero PA-C [address] [place] [address] 99[address] Assigned Musculoskeletal Provider 04/17/24 02/14/25 Carlos Joyner MD [address] [place] [address] Urology 01/26/25 Jadon Floyd MD [address] [place] [address] 238[address] Physician Physical Medicine and Rehabilitation 01/31/25 [place] [address] [place] [address] Assigned Musculoskeletal Provider 02/15/25 Tanisha Marlow 4120 [facility] [address] 03/30/24 documented as of this encounter
--- OUTSIDE RECORDS SUMMARY | 2025-02-27 01:56 | XMS_ITS | Clinical Summary ---
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 Resolved Problems Problem Noted Date Diagnosed Date Resolved Date Adjustment disorder with mix ed disturbance of emotions and conduct 07/04/2011 11/23/2018 Immunizations Immunization Administration Dates Next Due DTaP 01/18/2008,05/06/2005 BTuY-FikA-PPR (Pediarix) 05/27/2003,03/21/2003,0 2002 HIB PRP-T (ActHIB,Hiberix) 05/27/2003,03/21/2003 [...] on file Legal Sex Female 6:29 AM FRONT END LOADER OPERATOR Gender Identity Not on file Sexual [...] Comments Blood Pressure 123/80 07/12/2021 1:30 PM FRONT END LOADER OPERATOR Pulse 98 07/12/2021 1:30 PM FRONT END LOADER OPERATOR Temperature 36.9 C (98.5 F) 07/12/2021 1:30 PM FRONT END LOADER OPERATOR Respiratory Rate 18 07/03/2015 5:27 PM FRONT END LOADER OPERATOR Oxygen Saturation 98% 07/12/2021 1:30 PM FRONT END LOADER OPERATOR Inhaled Oxygen Concentration - - Weight 61.2 kg (135 lb) 07/03/2015 5:27 PM FRONT END LOADER OPERATOR Height - - Body Mass Index [...] Payer (Ef fective 2022-Present) Name:Laina Escudero Member ID:[id number] Relation to Subscriber:Self Name:Laina Escudero Subscriber ID:[id number] Payer ID:Not on file Group ID:Not on file Type:Not on file Address: ATTN: [address]S [phone] [place] [address] Advance Directives Documents on File Type Date Recorded Patient Speech And Language Tutor Expl anation Power of Audio Visual Design Engineer 06/24/2023 1:00 PM Care Teams Information Technology Technician Relationship Specialty Start Date End Date Heladio Willoughby MD PCP - General Family Practice 10/04/24
--- OUTSIDE RECORDS SUMMARY | 2025-02-27 01:56 | XMS_ITS | Encounter Summary ---
Author Organization [place] Address [address] [place] [address] 8[address] Care Team Providers Care Music Instructor Name Role Phone Carlos Joyner MD Unavailable +[phone] Jadon Murray MD Unavailable [phone] Maru Villagomez RN Unavailable Unavailable Ang Slade MD Unavailable +[phone] Carlos Joyner MD Unavailable +[phone] Ang Slade MD Unavailable +[phone] Lakshmi Wilhelm-C Unavailable +[phone] Heladio Willoughby MD Primary Care Provider [phone] Heladio Willoughby MD Unavailable Alissa Perez PA-C Unavailable [phone] CtLakshmi morales-C Unavailable +[phone] Aidee Valero PA-C Unavailable [phone] Carlos Joyner MD Unavailable +[phone] Jadon Floyd MD Unavailable +[phone] Encounter Details Date Type Department Care [...] than three times a week 07/16/2024 Attends Church Services Not on file 07/16 Active Member [...] [facility] [address] [address] Jadon Floyd MD [address] [place] [address] 03/23/2025 12:45 PM CDT Appointment [facility] [address] [facility] [address] [place] [address] [place] [address] [facility] [address] [place] [address] 03/23/2025 1:30 PM CDT Hospital Encounter [facility] [address] [place] [address] [place] [address] [facility] [address] [place] [address] 03/25/2025 10:20 AM CDT Virtual Visit [facility] [place] [address] [place], [place] [address] [place] [address] [place] [address] [place] [address] [address] [place] [address] 04/04/2025 12:00 PM GLASS WOOL BLANKET MACHINE FEEDER Office Visit [facility] [place] [address] [place] [address] DariusElvirginia Elder, OIL PIT ATTENDANT [facility] [address] [place], [place] [address] 05/30/2025 10:20 AM GLASS WOOL BLANKET MACHINE FEEDER Appointment [facility] [address] [place] [address]2515 Carlos Joyner MD [address] [place] [address] 661235 05/31/2025 2:00 PM GLASS WOOL BLANKET MACHINE FEEDER Virtual Visit [facility] [place] 909 [facility] 4th [place] [address] Carlos Joyner MD [address] [place] [address] [id number] 07/25/2025 11:00 AM GLASS WOOL BLANKET MACHINE FEEDER Office [facility] [address] [place] [address] [place] [address] [place] [address] documented as of this encounter Visit Diagnoses Not on filedocumented in this encounter Care Teams Music Instructor Relationship Specialty Start Date End Date Heladio [place] [address] [place] [address] PCP - General 03/05/23 Carlos Joyner MD [address] [place] [address] [phone] Urology 12/09/19 Jadon Murray MD [facility] [address] [facility] 550 [place] [address] Referring Physician Pediatric Surgery 12/09/19 Maru Villagomez, RN Registered Nurse 12/10/19 Ang Slade MD [address] [place] [address] 394 [place] [address] Urology 04/24/20 Carlos Joyner MD [address] [place] [address] 178135 Assigned Surgical Provider 12/24/20 Ang Slade MD [address] [place] [address] 394 [place] [address] Urology 12/18/22 Lakshmi Wilhelm PA-C [address] [place] [address] 647455 Physician Racker Octave Board Urology 02/03/23 [place] [address] [place] [address] Assigned PCP 02/06/23 Alissa Perez PA-C [address] [place] [address] 216305 Physician Racker Octave Board Surgery 09/04/23 Lakshmi Wilhelm PA-C [address] [place] [address] 485605 Physician Racker Octave Board Urology 09/16/23 Aidee Valero PA-C [address] [place] [address] 196205 Assigned Musculoskeletal Provider 04/17/24 02/14/25 Carlos Joyner MD [address] [place] [address] 259365 Urology 01/26/25 Jadon Floyd MD [address] [place] [address] 428195 Physician Physical Medicine and Rehabilitation 01/31/25 Tanisha Marlow 4120 [facility] [address] 03/30/24 documented as of this encounter
--- OUTSIDE RECORDS SUMMARY | 2025-02-27 01:56 | XMS_ITS | Encounter Summary ---
Author Organization [place] Address [address] [place] [address] Care Team Providers Care V Belt Builder Name Role Phone Carlos Joyner MD Unavailable [phone] Jadon Murray MD Unavailable [phone] Maru Villagomez RN Unavailable Unavailable Ang Slade MD Unavailable +[phone] Carlos Joyner MD Unavailable +[phone] Ang Slade MD Unavailable [phone] Lakshmi Wilhelm-C Unavailable [phone] Heladio Willoughby MD Primary Care Provider [phone] Heladio Willoughby MD Unavailable Alissa Perez PA-C Unavailable [phone] Lakshmi Wilhelm-C Unavailable [phone] Aidee Valero PA-C Unavailable [phone] Encounter Details Date Type Department Care Team (Late st Contact Info) Description 11/22/2024 Results Follow-Up [facility] [address]th [place] [address] Rosita Velasco, RN Dx: Kidney [...] than three times a week 07/16/2024 Attends Oriental Orthodox Services Not on file 07/16 Active Member of Clubs or Organizations Not on f ile 07/16/2024 Attends Club or Organization Meetings Not on antelmo e 07/16/2024 Marital Status Not on file 07/16/2024 PHQ-2 Answer Date Recorded PHQ-2 Score 0 09/13/2024 [facility] [...] [facility] [address] [phone] Jadon Floyd MD [address] [place] [address] 03/23/2025 12:45 PM CDT Appointment [facility] [address] [facility] [address] [place] [address] [place] [address] [place] [address] 03/23/2025 1:30 PM CDT Hospital Encounter [facility] [address] [place] [address] [place] [address] [facility] [address] [place] [address] 03/25/2025 10:20 AM CDT Virtual Visit [facility] [place] [address] [place], [place] [address] [place] [address] [place] [address] NANCY [address] [place] [address] 04/04/2025 12:00 PM PALEOLOGIST Office Visit [facility] [place] [address] [place] [address] Sugey Mccoy, AGILE TESTER [facility] [address] [place], [place] 0[address] 05/30/2025 10:20 AM PALEOLOGIST Appointment [facility] [address] [facility] [address] [place] [address] Carlos Joyner MD [address] [place] [address] 286035 05/31/2025 2:00 PM PALEOLOGIST Virtual Visit [facility] [place] 909 [facility] 4th [place] [address] Carlos Joyner MD [address] [place] [address] [id number] 07/25/2025 11:00 AM PALEOLOGIST Office Visit [facility] [address] [place] [address] [place] [address] [place] [address] documented as of this encounter Visit Diagnoses Diagnosis Kidney stone- Primary Calculus of kidney documented in this encounter Care Teams V Belt Builder Relationship Specialty Start [place] [address] [place] [address] PCP - General 03/05/23 Carlos Joyner MD [address] [place] [address] Urology 12/09/19 Jadon Murray MD [facility] 2530 [facility] 550 [place] [address] Referring Physician Pediatric Surgery 12/09/19 Maru Villagomez, RN Registered Nurse 12/10/19 Ang Slade MD 420 [facility] 394 [place], [place] 164175 Urology 04/24/20 Carlos Joyner MD [address] [place] [address] 724485 Assigned Surgical Provider 12/24/20 Ang Slade MD 420 [facility] 394 [place], [place] 125615 Urology 12/18/22 Lakshmi Wilhelm PA-C [address] [place] [address] 062125 Physician Certified Cytotechnologist Urology 02/03/23 [place] [address] [place] [address] Assigned PCP 02/06/23 Alissa Perez PA-C [address] [place] [address] 534595 Physician Certified Cytotechnologist Surgery 09/04/23 Lakshmi Wilhelm PA-C [address] [place] [address] 86723 Physician Certified Cytotechnologist Urology 09/16/23 Aidee Valero PA-C 909 [place] [address] Assigned Musculoskeletal Provider 04/17/24 02/14/25 Tanisha Marlow 4120 [facility] [address] 03/30/24 documented as of this encounter
--- OUTSIDE RECORDS SUMMARY | 2025-02-27 01:56 | XMS_ITS | Encounter Summary ---
Author Organization [place] Address [address] [place] [address] 9[address]26 Care Team Providers Care Tie Inspector Name Role Phone Carlos Joyner MD Unavailable [phone] Jadon Murray MD Unavailable [phone] Maru Villagomez RN Unavailable Unavailable Ang Slade MD Unavailable +[phone] Carlos Joyner MD Unavailable +[phone] Ang Slade MD Unavailable [phone] Lakshmi Wilhelm-C Unavailable [phone] Heladio Willoughby MD Primary Care Provider [phone] Heladio Willoughby MD Unavailable Alissa Perez PA-C Unavailable [phone] Lakshmi Wilhelm-C Unavailable [phone] Aidee Valero PA-C Unavailable [phone] Carlos Joyner MD Unavailable [phone] Jadon Floyd MD Unavailable [phone] Cayden Bejarano MD Unavailable Encounter Details Date Type Department Care Team (Late st Contact Info) Description 11/03/2024 [facility] [place] 7[address]279 [facility] 4th [place] [address] Carlos Joyner MD 9 [place] [address] Social History Tobacco Use Types Packs/Day Years [...] [facility] [address] [phone] Jadon Floyd MD [address] [place] [address] 03/23/2025 12:45 PM CDT Appointment [facility] [address] [facility] [address] [place] [address] [place] [address] [place] [address] 03/23/2025 1:30 PM CDT Hospital Encounter [facility] [address] [place] [address]-2515 [place] [address] [place] [address] 03/25/2025 10:20 AM CDT Virtual Visit [facility] [place] [address] [place], [place] [address] [place] [address] [place] [address] [place] [address] 04/04/2025 12:00 PM 3D SPECIALIST Office Visit [facility] [place] [address] [place] [address]14[address] Sugey Mccoy, DOUGH PANNER ARMHOLE SEWER [address] [place], [place] 569[address] 05/30/2025 10:20 AM 3D SPECIALIST Appointment [facility] [address] [place] [address]25[address] Carlos Joyner MD [address] [place] [address] 435965 05/31/2025 2:00 PM 3D SPECIALIST Virtual Visit [facility] [place] 909 [facility] 4th [place] [address] Carlos Joyner MD [address] [place] [address] 19056455 07/25/2025 11:00 AM 3D SPECIALIST Office Visit [address] [phone] [place] [address] [place] [address] documented as of this encounter Visit Diagnoses Not on filedocumented in this encounter Care Teams Tie Inspector Relationship Specialty Start Date End [place] [address] [place] [address] PCP - General 03/05/23 Carlos Joyner MD [address] [place] [address] Urology 12/09/19 Jadon Murray MD [facility] 2530 [facility] 550 [place] [address] Referring Physician Pediatric Surgery 12/09/19 Maru Villagomez, RN Registered Nurse 12/10/19 Ang Slade MD 420 [facility] 394 [place], [place] 361715 Urology 04/24/20 Carlos Joyner MD [address] [place] [address] 846095 Assigned Surgical Provider 12/24/20 Ang Slade MD [address] [place] [address] 394 [place] [address] Urology 12/18/22 Lakshmi Wilhelm PA-C [address] [place] [address] 885195 Physician Grader Patrol Urology 02/03/23 [place] [address] [place] [address] Assigned PCP 02/06/23 Alissa Perez PA-C [address] [place] [address] 624495 Physician Grader Patrol Surgery 09/04/23 Lakshmi Wilhelm PA-C [address] [place] [address] 557345 Physician Grader Patrol Urology 09/16/23 Aidee Valero PA-C [address] [place] [address] 89829 Assigned Musculoskeletal Provider 04/17/24 02/14/25 Carlos Joyner MD [address] [place] [address] Urology 01/26/25 Jadon Floyd MD [address] [place] [address] 337185 Physician Physical Medicine and Rehabilitation 01/31/25 [place] [address] [place] [address] Assigned Musculoskeletal Provider 02/15/25 Tanisha Marlow [address] [place] [address] 03/30/24 documented as of this encounter
--- OUTSIDE RECORDS SUMMARY | 2025-02-27 01:57 | XMS_ITS | Encounter Summary ---
Author Organization [place] Address [address] [place] [address] Care Team Providers Care Receiving Associate Name Role Phone Carlos Joyner MD Unavailable +[phone] Jadon Murray MD Unavailable [phone] Maru Villagomez RN Unavailable Unavailable Ang Slade MD Unavailable [phone] Carlos Joyner MD Unavailable +[phone] Ang Slade MD Unavailable [phone] Lakshmi WilhelmC Unavailable [phone] Heladio Willoughby MD Primary Care Provider [phone] Heladio Willoughby MD Unavailable Alissa Perez-Juan A Unavailable [phone] Lakshmi Wilhelm PA-C Unavailable [phone] Carlos Joyner MD Unavailable +[phone] Jadon Floyd MD Unavailable +[phone] Cayden Bejarano MD Unavailable Encounter Details [...] Answer Date Recorded PHQ-2 Score 0 09/13/2024 [facility] [...] [facility] [address] [phone] Jadon Floyd MD [address] [place] [address] 03/23/2025 12:45 PM CDT Appointment [facility] [address] [facility] [address] [place] [address]15 [place] [address] [place] [address] 03/23/2025 1:30 PM CDT Hospital Encounter [facility] [address] [place] [address]-25[address] Cayden Bejarano [place] [address] [place] [address] 03/25/2025 10:20 AM CDT Virtual Visit [facility] [place] [address] [place] [address] Cayden [place]jarano [place] [address] [place] [address] 04/04/2025 12:00 PM BEAUTY THERAPIST Office Visit [facility] [place] [address] [place] [address]14[address] Darius Elvirginia Elder, HADOOP ADMIN [facility] [address] [place], [place] 2076[address] 05/30/2025 10:20 AM BEAUTY THERAPIST Appointment [facility] [address] [place] [address]-447[address]2515 Carlos Joyner MD [address] [place] [address] 777735 05/31/2025 2:00 PM BEAUTY THERAPIST Virtual Visit [facility] [place] [address] [facility] 4th [place] [phone] Carlos Joyner MD [address] [place] [address] 07/25/2025 11:00 AM BEAUTY THERAPIST Office Visit [facility] [address] [place] [address] [place] [address] [place] [address] documented as of this encounter Visit Diagnoses Not on filedocumented in this encounter Care Teams Receiving Associate Relationship Specialty [place] [address] [place] [address] PCP - General 03/05/23 Carlos Joyner MD [address] [place] [address] Urology 12/09/19 Jadon Murray MD [facility] 2530 [facility] 550 [place] [address] Referring Physician Pediatric Surgery 12/09/19 Maru Villagomez, RN Registered Nurse 12/10/19 Ang Slade MD [address] [place] [address] 394 [place], [place] 980495 Urology 04/24/20 Carlos Joyner MD [address] [place] [address] 452675 Assigned Surgical Provider 12/24/20 Ang Slade MD [address] [place] [address] 028085 Urology 12/18/22 Lakshmi Wilhelm PA-C [address] [place] [address] 399875 Physician Office Machine Servicer Apprentice Urology 02/03/23 [place] [address] [place] [address] Assigned PCP 02/06/23 Alissa Perez PA-C [address] [place] [address] 332295 Physician Office Machine Servicer Apprentice Surgery 09/04/23 Lakshmi Wilhelm PA-C [address] [place] [address] 494205 Physician Office Machine Servicer Apprentice Urology 09/16/23 Carlos Joyner MD 909 [place], [place] 937745 Urology 01/26/25 Jadon Floyd MD 9 [place], [place] 137385 Physician Physical Medicine and Rehabilitation 01/31/25 [place] [address] [place] [address] Assigned Musculoskeletal Provider 02/15/25 Tanisha Marlow 4120 [facility] [address] 03/30/24 documented as of this encounter
--- OUTSIDE RECORDS SUMMARY | 2025-02-27 01:57 | XMS_ITS | Encounter Summary ---
Author Organization [place] Address [address] [place] [address] 67377 Care Team Providers Care Ladle Pourer Name Role Phone Carlos Joyner MD Unavailable +[phone] Jadon Murray MD Unavailable [phone] Maru Villagomez RN Unavailable Unavailable Ang Slade MD Unavailable [phone] Carlos Joyner MD Unavailable +[phone] Ang Slade MD Unavailable [phone] Lakshmi Wilhelm-C Unavailable [phone] Heladio Willoughby MD Primary Care Provider [phone] Heladio Willoughby MD Unavailable Alissa Perez PA-C Unavailable [phone] Lakshmi Wilhelm-C Unavailable [phone] Aidee Valero PA-C Unavailable +[phone] Carlos Joyner MD Unavailable [phone] Jadon Floyd MD Unavailable +[phone] Cayden Bejarano MD Unavailable Encounter Details Date Type Department Care Team (Late st Contact Info) Description 12/06/2024 [facility] Clinic [place] 619079 [facility] 4th [place] [address] Rosita Velasco RN Social History [...] Recorded PHQ-2 Score 0 09/13/2024 [facility] - Occupational [...] Center [facility] [address] [phone] Jadon Floyd MD [address] [place] [address] 521325 03/23/2025 12:45 PM CDT Appointment [facility] [address] [facility] [address] [place] [address] [place] [address] [facility] [place] [address] 03/23/2025 1:30 PM CDT Hospital Encounter [facility] [address] [place] [address] [place] [address] [facility] [place] [address] 03/25/2025 10:20 AM CDT Virtual Visit [facility] [place] [address] [place] [address] [place] [address] [place] [address] 04/04/2025 12:00 PM GAS PROCESSING PLANT OPERATOR Office Visit [facility] [place] [address] [place] [address] Sugey Mccoy, FIELD SAMPLING TECHNICIAN [facility] [address] [place], [place] [address]E [address] [place], [place] [address] 05/30/2025 10:20 AM GAS PROCESSING PLANT OPERATOR Appointment [facility] [address] [place] [address]-25[address] Carlos Joyner MD [address] [place] [place] [address] 090005 05/31/2025 2:00 PM GAS PROCESSING PLANT OPERATOR Virtual Visit [facility] [place] [address] [place] [address] 4[address] [place] [address] Carlos Joyner MD [address] [place] [place] [address] 586525 07/25/2025 11:00 AM GAS PROCESSING PLANT OPERATOR Office Visit [facility] [address] [place] [address] [place] [address] [facility] [place] [address] documented as of this encounter Visit Diagnoses Not on filedocumented in this encounter Care Teams Ladle Pourer Relationship Specialty [place] [address] [facility] [place] [address] PCP - General 03/05/23 Carlos Joyner MD [address] [place] [place] [address] 538995 Urology 12/09/19 Jadon Murray MD [facility] [address] [address] Referring Physician Pediatric Surgery 12/09/19 Maru Villagomez, RN Registered Nurse 12/10/19 Ang Slade MD [address] [place] [address] 5[address] Urology 04/24/20 Carlos Joyner MD [address] [place] [place] [address] 45964 Assigned Surgical Provider 12/24/20 Ang Slade MD [address] [place] [address] 496[address] Urology 12/18/22 Lakshmi Wilhelm PA-C [address] [place] [place] [address] 46530 Physician Grinder Operator Tool Urology 02/03/23 [place] [address] [facility], [place] 6421168 Assigned PCP 02/06/23 Alissa Perez PA-C [address] [place] [address] 908975 Physician Grinder Operator Tool Surgery 09/04/23 Lakshmi Wilhelm PA-C [address] [place] [place] [address] 709315 Physician Grinder Operator Tool Urology 09/16/23 Aidee Valero PA-C [address] [place] [place] [address] 6[address] Assigned Musculoskeletal Provider 04/17/24 02/14/25 Carlos Joyner MD [address] [place] [place] [address] 212245 Urology 01/26/25 Jadon Floyd MD [address] [place] [address] 105755 Physician Physical Medicine and Rehabilitation 01/31/25 [place] [address] [place] [address] Assigned Musculoskeletal Provider 02/15/25 Tanisha Marlow 4120 [facility] [address] 03/30/24 documented as of this encounter
--- OUTSIDE RECORDS SUMMARY | 2025-02-27 01:57 | XMS_ITS | Encounter Summary ---
Author Organization [facility] Address [address] [place] [address] 35461 Care Team Providers Care Web Assistant Name Role Phone Cralos Joyner MD Unavailable +[phone] Jadon Murray MD Unavailable +[phone] Maru Villagomez RN Unavailable Unavailable Ang Slade MD Unavailable +[phone] Carlos Joyner MD Unavailable +[phone] Ang Slade MD Unavailable +[phone] Lakshmi WilhelmC Unavailable +[phone] Heladio Willoughby MD Primary Care Provider +[phone] Heladio Willoughby MD Unavailable Alissa Perez-Juan A Unavailable [phone] Lakshmi Wilhelm PA-C Unavailable +[phone] Carlos Joyner MD Unavailable +[phone] Jadon Floyd MD Unavailable +[phone] Cayden Bejarano MD Unavailable Reason for Visit * Reason Onset Date Comments Pre Visit Planning - Done 02/24/2025 Encounter Details Date Type Department Care Team (Late st Contact Info) Description 02/24/2025 PRE VISIT [facility] Urology [place] 8[address] [facility] 4th [place] [address] Estrella Martinez, CM 420 [facility], ROOM [address] [place] [address] Pre Visit Planning - Done Social History [...] Center Physical Medicine and Rehabilitation Clinic [address] [address] Jadon Floyd MD [address] [place] [address] 03/23/2025 12:45 PM CDT Appointment [facility] [address] [facility] [address] [place] [address] [place] [address] [place] [address] 03/23/2025 1:30 PM CDT Hospital Encounter [facility] [address] [facility] [address] [place] [address] [place] [address] [place] [address] [address] [place] [address] 03/25/2025 10:20 AM CDT Virtual Visit [facility] [address] [place] [address] [address] [place] [address] [place] [address] [place] [address] 04/04/2025 12:00 PM GUARD MUSEUM Office Visit [facility] Sleep [address] [phone] Sugey Mccoy APRN [address] [address] 05/30/2025 10:20 AM GUARD MUSEUM Appointment [facility] [address] [facility] [address] [place] [address] Carlos Joyner MD [address] [place] [address] 458235 05/31/2025 2:00 PM GUARD MUSEUM Virtual Visit [facility] Urology Clinic [address] 4th [place] [address] Carlos Joyner MD [address] [place] [address] 07/25/2025 11:00 AM GUARD MUSEUM Office Visit [facility] [address] [place] [address] [place] [address] [facility] [place] [phone] documented as of this encounter Visit Diagnoses Not on filedocumented in this encounter Care Teams Web Assistant Relationship Specialty Start [place] [address] [place] [place], [place] [phone] PCP - General 03/05/23 Carlos Joyner MD [address] [place] [address] Urology 12/09/19 Jadon Murray MD [facility] 2530 [facility] 550 [place] [address] Referring Physician Pediatric Surgery 12/09/19 Maru Villagomez, RN Registered Nurse 12/10/19 Ang Slade MD [address] [place] [address] 394 [place] [address] Urology 04/24/20 Carlos Joyner MD [address] [place] [address]155 Assigned Surgical Provider 12/24/20 Ang Slade MD [address] [place] [address] 394 [place] [address] Urology 12/18/22 Lakshmi Wilhelm PA-C [address] [place] [address] 36948 Physician Community Arts Officer Urology 02/03/23 [place] [address] [place] [address] Assigned PCP 02/06/23 Alissa Perez PA-C [address] [place] [address] 11408 Physician Community Arts Officer Surgery 09/04/23 Lakshmi Wilhelm PA-C [address] [place] [address]203 Physician Community Arts Officer Urology 09/16/23 Carlos Joyner MD [address] [place] [address] Urology 01/26/25 Jadon Floyd MD [address] [place] [address] Physician Physical Medicine and Rehabilitation 01/31/25 [place] [address] [place] [address] Assigned Musculoskeletal Provider 02/15/25 Tanisha Marlow 4120 [place] [address] 03/30/24 documented as of this encounter
--- OUTSIDE RECORDS SUMMARY | 2025-02-27 01:57 | XMS_ITS | Encounter Summary ---
Author Organization [facility] Address [address] [place] [address]841 Care Team Providers Care Sap Gatherer Name Role Phone Carlos Joyner MD Unavailable +[phone] Jadon Murray MD Unavailable +[phone] Maru Villagomez RN Unavailable Unavailable Ang Slade MD Unavailable +[phone] Carlos Joyner MD Unavailable +[phone] Ang Slade MD Unavailable +[phone] Lakshmi Wilhelm-C Unavailable +[phone] Heladio Willoughby MD Primary Care Provider [phone] Heladio Willoughby MD Unavailable Alissa Perez PA-C Unavailable [phone] Lakshmi Wilhelm-C Unavailable +[phone] Aidee Valero PA-C Unavailable +[phone] Carlos Joyner MD Unavailable [phone] Reason for Visit * Reason Onset Date Comments Symptoms 12/06/2024 Encounter Details Date Type Department Care Team (Late st Contact Info) Description 12/06/2024 Telephone [facility] Urology Clinic [address] 4th [place] [address] Carlos Joyner MD [address] [place] [address]67 Symptoms Social History Tobacco Use Types Packs/Day [...] Answer Date Recorded PHQ-2 Score 0 09/13/2024 [facility] - Occupational [...] Medical Center Physical Medicine and Rehabilitation Clinic [address] 3rd [place] [address] Jadon Floyd MD [address] [place] [address] 243475 03/23/2025 12:45 PM CDT Appointment [facility] [address] [facility] [address] [place] [address] [place] [address] [place] [address] 03/23/2025 1:30 PM CDT Hospital Encounter [facility] [address] [place] [address] [place] [address] [place] [address] 03/25/2025 10:20 AM CDT Virtual Visit [facility] Sports Medicine [facility] [address] [place] [address] Drive [address] [place] [address] [place] [address] [place] [address] 04/04/2025 12:00 PM FILE DRAWER FINISHER Office Visit [facility] Sleep [address] [phone] Sugey Mccoy, BEAD INSPECTOR [address] [address] 05/30/2025 10:20 AM FILE DRAWER FINISHER Appointment [facility] [address] [facility] [address] [place] [address] Carlos Joyner MD [address] [place] [address] 861255 05/31/2025 2:00 PM FILE DRAWER FINISHER Virtual Visit [facility] Urology Clinic [address] [address] Carlos Joyner MD 909 [place], [place] 519465 07/25/2025 11:00 AM FILE DRAWER FINISHER [facility] [address] [place] [address] [place] [address] [place], [place] 3148368 documented as of this encounter Visit Diagnoses Not on filedocumented in this encounter Care Teams Sap Gatherer Relationship Specialty Start [place] [address] [address] [place], [place] [phone] PCP - General 03/05/23 Carlos Joyner MD [address] [place] [address] Urology 12/09/19 Jadon Murray MD [facility] [address] [address] Referring Physician Pediatric Surgery 12/09/19 Maru Villagomez, OTILIO Registered Nurse 12/10/19 Ang Slade MD [address] [place] [address] Urology 04/24/20 Carlos Joyner MD [address] [place] [address] Assigned Surgical Provider 12/24/20 Ang Slade MD [address] [address] Urology 12/18/22 Lakshmi Wilhelm PA-C [address] [place] [address] Physician Rn Cardiac Cath Urology 02/03/23 [place] [address] [place] [address] Assigned PCP 02/06/23 Alissa Perez PA-C [address] [place] [address] Physician Rn Cardiac Cath Surgery 09/04/23 Lakshmi Wilhelm PA-C [address] [place] [address] 264[address] Physician Rn Cardiac Cath Urology 09/16/23 Aidee Valero PA-C [address] [place] [address] Assigned Musculoskeletal Provider 04/17/24 02/14/25 Carlos Joyner MD [address] [place] [address] Urology 01/26/25 Tanisha Marlow 4120 [facility] [address] 03/30/24 documented as of this encounter
--- OUTSIDE RECORDS SUMMARY | 2025-02-27 01:57 | XMS_ITS | Encounter Summary ---
Author Organization [facility] Address [address] [place] [address] Care Team Providers Care Web Operations Lead Name Role Phone Carlos Joyner MD Unavailable +[phone] Jadon Murray MD Unavailable +[phone] Maru Villagomez RN Unavailable Unavailable Ang Slade MD Unavailable +[phone] Carlos Joyner MD Unavailable +[phone] Ang Slade MD Unavailable +[phone] Lakshmi WilhelmC Unavailable +[phone] Heladio Willoughby MD Primary Care Provider [phone] Heladio Willoughby MD Unavailable Alissa Perez-Juan A Unavailable [phone] Lakshmi Wilhelm PA-C Unavailable +[phone] Carlos Joyner MD Unavailable +[phone] Jadon Floyd MD Unavailable +[phone] Cayden Bejarano MD Unavailable Encounter Details [...] than three times a week 07/16/2024 Attends Christian Services Not on file 07/16 Active Member of Clubs or Organizations Not on f ile 07/16/2024 Attends Club or Organization Meetings Not on antelmo e 07/16/2024 Marital Status Not on file 07/16/2024 PHQ-2 Answer Date Recorded PHQ-2 Score 0 09/13/2024 [facility] [...] [facility] Physical Medicine [facility] Rehabilitation Clinic [address] [phone] Jadon Floyd MD [address] [place] [address] 03/23/2025 12:45 PM CDT Appointment [facility] [address] [facility] [address] [place] [address] [place] [address] [place] [address] 03/23/2025 1:30 PM CDT Hospital Encounter [facility] [address] [place] [address] Cayden Bejarano [place] [address] [place] [address] 03/25/2025 10:20 AM CDT Virtual Visit [facility] Sports Medicine [facility] [place] [address] [place] [address] Cay[place] [address] [place] [address] 04/04/2025 12:00 PM ALTERATION WORKROOM SUPERVISOR Office Visit [facility] [place] [address] [place] [address] Darius [place]ia Elder, FORESTRY BIOLOGY SPECIALIST [facility] [address] [place], [place] 0[address]134 05/30/2025 10:20 AM ALTERATION WORKROOM SUPERVISOR Appointment [facility] [address] [place] [address] Carlos Joyner MD [address] [place] [address] 444315 05/31/2025 2:00 PM ALTERATION WORKROOM SUPERVISOR Virtual Visit [facility] Urology Clinic [place] 9[address] [facility] 4th [place] [address] Carlos Joyner MD [address] [place] [address] 07/25/2025 11:00 AM ALTERATION WORKROOM SUPERVISOR Office Visit [facility] [address] [place] [address] [place] [address] [place] [address] documented as of this encounter Visit Diagnoses Not on filedocumented in this encounter Care Teams Web Operations Lead Relationship Specialty Start [place] [address] [place] [address] PCP - General 03/05/23 Carlos Joyner MD [address] [place] [address] Urology 12/09/19 Jadon Murray MD [facility] 2530 [facility] 550 [place] [address] Referring Physician Pediatric Surgery 12/09/19 Maru Villagomez, RN Registered Nurse 12/10/19 Ang Slade MD [address] [place] [address] 394 [place], [place] [address]1995 Urology 04/24/20 Carlos Joyner MD [address] [place] [address] 050415 Assigned Surgical Provider 12/24/20 Ang Slade MD [address] [place] [address] 623405 Urology 12/18/22 Lakshmi Wilhelm PA-C [address] [place] [address] 797665 Physician Plastics Worker Urology 02/03/23 [place] [address] [place] [address] Assigned PCP 02/06/23 Alissa Perez PA-C [address] [place] [address] 777155 Physician Plastics Worker Surgery 09/04/23 Lakshmi Wilhelm PA-C [address] [place] [address] 407205 Physician Plastics Worker Urology 09/16/23 Carlos Joyner MD 909 [place], [place] 509115 Urology 01/26/25 Jadon Floyd MD 9 [place], [place] 385855 Physician Physical Medicine and Rehabilitation 01/31/25 [place] [address] [place] [address] Assigned Musculoskeletal Provider 02/15/25 Tanisha Marlow 4120 [facility] [address] 03/30/24 documented as of this encounter
--- OUTSIDE RECORDS SUMMARY | 2025-02-27 01:57 | XMS_ITS | Encounter Summary ---
Author Organization [facility] Address [address] [place] [address] Care Team Providers Care Waste Hand Name Role Phone Carlos Joyner MD Unavailable +[phone] Jadon Murray MD Unavailable +[phone] Maru Villagomez RN Unavailable Unavailable Ang Slade MD Unavailable +[phone] Carlos Joyner MD Unavailable +[phone] Ang Slade MD Unavailable [phone] Lakshmi Wilhelm PA-C Unavailable +[phone] Heladio Willoughby MD Primary Care Provider +[phone] Heladio Willoughby MD Unavailable Alissa Perez PA-C Unavailable [phone] Lakshmi Wilhelm PA-C Unavailable +[phone] Carlos Joyner MD Unavailable +[phone] Jadon Floyd MD Unavailable +[phone] Cayden Bejarano MD Unavailable Encounter Details Date Type Department Care Team (Late st Contact Info) Description 02/22/2025 [facility] [address] [facility] [address] [place] [address] Eliza Carty, OT 909 [place] [address] Social History Tobacco Use Types Packs/Day Years [...] Medical Center Physical Medicine and Rehabilitation Clinic [address] [phone] Jadon Floyd MD [address] [place] [address] 03/23/2025 12:45 PM CDT Appointment [facility] [address] [facility] [address] [place] [address] [place] [address] [facility] [address] [place] [address] 03/23/2025 1:30 PM CDT Hospital Encounter [facility] [address] [facility] [address] [place] [address] [place] [address] [facility] [address] [place] [address] 03/25/2025 10:20 AM CDT Virtual Visit [facility] Sports Medicine [facility] [place] [address] [place] [address] [place] [address] [place] [address] 04/04/2025 12:00 PM SURGICAL TECHNICIAN Office Visit [facility] [place] [address] [place] [address] Sugey Mccoy APRN [facility] [address] [place] [address] [address] [place], [place] 982274 05/30/2025 10:20 AM SURGICAL TECHNICIAN Appointment [facility] [address] [place] [address] Carlos Joyner MD [address] [place] [address] 422125 05/31/2025 2:00 PM SURGICAL TECHNICIAN Virtual Visit [facility] Urology Clinic [place] 909 [facility] 4th [place] [address] Carlos Joyner MD [address] [place] [address] 696795 07/25/2025 11:00 AM SURGICAL TECHNICIAN Office Visit [facility] [address] [place] [address] [place] [address] [place] [address] documented as of this encounter Visit Diagnoses Not on filedocumented in this encounter Care Teams Waste Hand Relationship Specialty Start [place] [address] [place] [address] PCP - General 03/05/23 Carlos Joyner MD [address] [place] [address] Urology 12/09/19 Jadon Murray MD [facility] 2530 [facility] S [address] [address] Referring Physician Pediatric Surgery 12/09/19 Maru Villagomez, OTILIO Registered Nurse 12/10/19 Ang Slade MD [address] [place] [address] 204795 Urology 04/24/20 Carlos Joyner MD [address] [place] [address] Assigned Surgical Provider 12/24/20 Ang Slade MD [address] [place] [address] 362415 Urology 12/18/22 Lakshmi Wilhelm PA-C [address] [place] [address] 842175 Physician Ground Service Equipment Mechanic Urology 02/03/23 [place] [address] [place] [address] Assigned PCP 02/06/23 Alissa Perez PA-C [address] [place] [address] 570775 Physician Ground Service Equipment Mechanic Surgery 09/04/23 Lakshmi Wilhelm PA-C [address] [place] [address] 583395 Physician Ground Service Equipment Mechanic Urology 09/16/23 Carlos Joyner MD [address] [place] [address] 852685 Urology 01/26/25 Jadon Floyd MD [address] [place] [address] 558695 Physician Physical Medicine and Rehabilitation 01/31/25 [place] [address] [place], [place] 745087 Assigned Musculoskeletal Provider 02/15/25 Tanisha Marlow 4120 [facility] [id number] 03/30/24 documented as of this encounter
--- OUTSIDE RECORDS SUMMARY | 2025-02-27 01:57 | XMS_ITS | Encounter Summary ---
Author Organization [facility] Address [address] [place] [address] Care Team Providers Care Therapeutic Assistant Name Role Phone Carlos Joyner MD Unavailable + [phone] Jadon Murray MD Unavailable [phone] Maru Villagomez RN Unavailable Unavailable Ang Slade MD Unavailable +[phone] Carlos Joyner MD Unavailable + [phone] Ang Slade MD Unavailable +[phone] Lakshmi Wilhelm-C Unavailable +[phone] Heladio Willoughby MD Primary Care Provider [phone] Heladio Willoughby MD Unavailable Alissa Perez PA-C Unavailable [phone] Lakshmi Wilhelm-C Unavailable +[phone] Aidee Valero PA-C Unavailable +[phone] Carlos Joyner MD Unavailable + [phone] Jadon Floyd MD Unavailable + [phone] Cayden Bejarano MD Unavailable Encounter Details Date Type Department Care Team (Late st Contact Info) Description 08/20/[address] [address] Mercy Feliz, RN Social History [...] Answer Date Recorded PHQ-2 Score Incomplete 07/21/2024 [facility] [...] Medical Center Physical Medicine and Rehabilitation Clinic [address]rd [place] [address] Jaodn Floyd MD [address] [place] [address] 03/23/2025 12:45 PM CDT Appointment [facility] [address] [facility] [address] [place] [address] [place] [address] [address] [place] [address] 03/23/2025 1:30 PM CDT Hospital Encounter [facility] [address] [place] [address] Cayden Bejarano [place] [address] [place] [address] 03/25/2025 10:20 AM CDT Virtual Visit [facility] Sports Medicine Clinic [place] [address] [place], [place] [address] [place] [address] [place] [address] [address] [place] [address] 04/04/2025 12:00 PM DIPLOMATIC COURIER Office Visit [facility] Sleep [facility] [place] [address] [place] [address] Sugey Mccoy, TILE [facility] [address] [place] [address] [address] [place] [address] 05/30/2025 10:20 AM DIPLOMATIC COURIER Appointment [facility] [address] [facility] [address] [place] [address] Carlos Joyner MD [address] [place] [address] 834285 05/31/2025 2:00 PM DIPLOMATIC COURIER Virtual Visit [facility] Urology Clinic [place] 909 [facility] 4th [place] [address] Carlos Joyner MD [address] [place] [address] 774955 07/25/2025 11:00 AM DIPLOMATIC COURIER Office Visit [facility] [address] [place] [address] [place] [address] [place], [place] 2607068 documented as of this encounter Visit Diagnoses Not on filedocumented in this encounter Care Teams Therapeutic Assistant Relationship Specialty Start [place] [address] [place] [address] PCP - General 03/05/23 Carlos Joyner MD [address] [place] [address] Urology 12/09/19 Jadon Murray MD [facility] [address] [facility] 550 [place] [address] Referring Physician Pediatric Surgery 12/09/19 Maru Villagomez, RN Registered Nurse 12/10/19 Ang Slade MD 420 [facility] 394 [place], [place] 316575 MD Urology 04/24/20 Carlos Joyner MD [address] [place] [address] [id number] Assigned Surgical Provider 12/24/20 Ang Slade MD 420 [facility] 394 [place], [place] 008285 MD Urology 12/18/22 Lakshmi Wilhelm PA-C [address] [place] [address] 119975 Physician Air Grinder Urology 02/03/23 [place] [address] [place] [address] Assigned PCP 02/06/23 Alissa Perez PA-C [address] [place] [address] 193815 Physician Air Grinder Surgery 09/04/23 Lakshmi Wilhelm PA-C [address] [place] [address] 680235 Physician Air Grinder Urology 09/16/23 Aidee Valero PA-C [address] [place] [address] Assigned Musculoskeletal Provider 04/17/24 02/14/25 Carlos Joyner MD [address] [place] [address] Urology 01/26/25 Jadon Floyd MD [address] [place] [address]62 Physician Physical Medicine and Rehabilitation 01/31/25 [place] [address] [place] [address] Assigned Musculoskeletal Provider 02/15/25 Tanisha Marlow 4120 [facility] [address] 03/30/24 documented as of this encounter
--- OUTSIDE RECORDS SUMMARY | 2025-02-27 01:57 | XMS_ITS | Encounter Summary ---
Author Organization [place] Address [address] [place] [address] Care Team Providers Care Chain Mender Name Role Phone Carlos Joyner MD Unavailable + [phone] Jadon Murray MD Unavailable +[phone] Maru Villagomez RN Unavailable Unavailable Ang Slade MD Unavailable +[phone] Carlos Joyner MD Unavailable +[phone] Ang Slade MD Unavailable +[phone] Lakshmi Wilhelm-C Unavailable +[phone] Heladio Willoughby MD Primary Care Provider +[phone] Heladio Willoughby MD Unavailable Alissa Perez PA-C Unavailable [phone] Lakshmi Wilhelm-C Unavailable +[phone] Aidee Valero PA-C Unavailable +[phone] Carlos Joyner MD Unavailable +[phone] Jadon Floyd MD Unavailable +[phone] Cayden Bejarano MD Unavailable Encounter Details Date Type Department Care Team (Late st Contact Info) Description 08/26/2024 [facility] Urology [place] [id number] [facility] 4th [place] [address] Sarika Tomlinson Social History Tobacco [...] Answer Date Recorded PHQ-2 Score Incomplete 07/21/2024 [facility] - Occupational [...] [facility] Physical Medicine [facility] Rehabilitation Clinic [address] [phone] Jadon Floyd MD [address] [place] [address] 03/23/2025 12:45 PM CDT Appointment [facility] [address] [facility] [address] [place] [address] Cayden Bejarano MD [address] [place], [place] [address] [place] [address] 03/23/2025 1:30 PM CDT Hospital Encounter [facility] Imaging [address] [place] [address] Cayden Bejarano MD [address] [place], [place] [address] [place] [address] 03/25/2025 10:20 AM CDT Virtual Visit [facility] [place] [address] [place] [address] Cayden Bejarano MD [address] [place] [address] [address] [place] [address] 04/04/2025 12:00 PM TOWER HELPER Office Visit [facility] [place] [address] [place] [address] Sugey Mccoy, DIRECTOR OF OPERATIONS FOR THERAPY [facility] 606 [address] [address] [place] [address] 05/30/2025 10:20 AM TOWER HELPER Appointment [facility] Imaging [address] [facility] [address] [place] [address] Carlos Joyner MD [address] [place] [address] 834525 05/31/2025 2:00 PM TOWER HELPER Virtual Visit [facility] U[facility] Clinic [place] 909 [facility] 4th [place] [address] Carlos Joyner MD [address] [place] [address] 706245 07/25/2025 11:00 AM TOWER HELPER Office Visit [facility] [address] [place] [address] [place] [address] [place], [place] [phone] documented as of this encounter Visit Diagnoses Not on filedocumented in this encounter Care Teams Chain Mender Relationship Specialty Start [place] [address] [place] [address] PCP - General 03/05/23 Carlos Joyner MD [address] [place] [address] Urology 12/09/19 Jadon Murray MD [facility] 2530 [facility] 550 [place] [address] Referring Physician Pediatric Surgery 12/09/19 Maru Villagomez, RN Registered Nurse 12/10/19 Ang Slade MD 420 [facility] 394 [place], [place] 963705 Urology 04/24/20 Carlos Joyner MD [address] [place] [address] [id number] Assigned Surgical Provider 12/24/20 Ang Slade MD 420 [facility] 394 [place], [place] 331745 MD Urology 12/18/22 Lakshmi Wilhelm PA-C [address] [place] [address] 885485 Physician Cage Maker Urology 02/03/23 [place] [address] [place] [address] Assigned PCP 02/06/23 Alissa Perez PA-C [address] [place] [address] 755075 Physician Cage Maker Surgery 09/04/23 Lakshmi Wilhelm PA-C [address] [place] [address] 009835 Physician Cage Maker Urology 09/16/23 Aidee Vlaero PA-C 909 [place] [address] Assigned Musculoskeletal Provider 04/17/24 02/14/25 Carlos Joyner MD [address] [place] [address] Urology 01/26/25 Jadon Floyd MD [address] [place] [address] Physician Physical Medicine and Rehabilitation 01/31/25 [place] [address] [place] [address] Assigned Musculoskeletal Provider 02/15/25 Tanisha Marlow 4120 [facility] [id number] 03/30/24 documented as of this encounter
--- OUTSIDE RECORDS SUMMARY | 2025-02-27 01:57 | XMS_ITS | Encounter Summary ---
Author Organization [place] Address [address] [place] [address] Care Team Providers Care Repair Cameraman Name Role Phone Carlos Joyner MD Unavailable + [phone] Jadon Murray MD Unavailable +[phone] Maru Villagomez RN Unavailable Unavailable Ang Slade MD Unavailable +[phone] Carlos Joyner MD Unavailable + [phone] Ang Slade MD Unavailable +- [phone] Lakshmi Wilhelm-C Unavailable +[phone] Heladio Willoughby MD Primary Care Provider +[phone] Heladio Willoughby MD Unavailable Alissa Perez PA-C Unavailable [phone] Lakshmi Wilhelm-C Unavailable +- [phone] Aidee Valero PA-C Unavailable +[phone] Carlos Joyner MD Unavailable + [phone] Jadon Floyd MD Unavailable +[phone] Cayden Bejarano MD Unavailable Encounter Details Date Type Department Care Team (Late st Contact Info) Description 06/15/[address] [address] Sarika Calhoun MA Social History [...] 9:00 AM CDT Office Visit [facility] Physical Medicine and Rehabilitation Clinic [address] [address] Jadon Floyd MD [address] [place] [address] 253405 03/23/2025 12:45 PM CDT Appointment [facility] Imaging [address] [place] [address] [place] [address] [place] [address] 03/23/2025 1:30 PM CDT Hospital Encounter [facility] Imaging [address] [facility] [address] [place] [address] [place] [address] [place] [address] [address] [place] [address] 03/25/2025 10:20 AM CDT Virtual Visit [facility] Sports Medicine [facility] [address] [place] [address] [address] [place] [address] [place] [address] [place] [address] 04/04/2025 12:00 PM ASSEMBLY AND PACKING SUPERVISOR Office Visit [facility] Sleep [address] [phone] Sugey Mccoy, NESTOR [address] [address] 05/30/2025 10:20 AM ASSEMBLY AND PACKING SUPERVISOR Appointment [facility] Imaging [address] [facility] [address] [place] [address] Carlos Joyner MD [address] [place] [address] 44416455 05/31/2025 2:00 PM ASSEMBLY AND PACKING SUPERVISOR Virtual Visit [facility] Urology Clinic [address] 4th [place] [address] Carlos Joyner MD [address] [place] [address] 30868455 07/25/2025 11:00 AM ASSEMBLY AND PACKING SUPERVISOR Office Visit [facility] [address] [place] [phone] [place] [address] [address] [place] [phone] documented as of this encounter Visit Diagnoses Not on filedocumented in this encounter Care Teams Repair Cameraman Relationship Specialty [place] [address] [address] [place] [phone] PCP - General 03/05/23 Carlos Joyner MD [address] [place] [address] Urology 12/09/19 Jadon Murray MD [facility] 2530 [facility] 550 [place] [address] Referring Physician Pediatric Surgery 12/09/19 Maru Villagomez, RN Registered Nurse 12/10/19 Ang Slade MD [address] [place] [address] Urology 04/24/20 Carlos Joyner MD [address] [place] [address] 613495 Assigned Surgical Provider 12/24/20 Ang Slade MD [address] [address] Urology 12/18/22 Lakshmi Wilhelm PA-C [address] [place] [address]881 Physician Bike Technician Urology 02/03/23 [place] [address] [place] [address] Assigned PCP 02/06/23 Alissa Perez PA-C [address] [place] [address] 12054 Physician Bike Technician Surgery 09/04/23 Lakshmi Wilhelm PA-C [address] [place] [address] 31694 Physician Bike Technician Urology 09/16/23 Aidee Valero PA-C [address] [place] [address] 975345 Assigned Musculoskeletal Provider 04/17/24 02/14/25 Carlos Joyner MD [address] [place] [address] 367935 Urology 01/26/25 Jadon Floyd MD [address] [place] [address] 810075 Physician Physical Medicine and Rehabilitation 01/31/25 [place] [address] [place] [address] Assigned Musculoskeletal Provider 02/15/25 Tanisha Marlow 4120 [facility] [phone] 03/30/24 documented as of this encounter
--- OUTSIDE RECORDS SUMMARY | 2025-02-27 01:57 | XMS_ITS | Encounter Summary ---
Author Organization [place] Address [address] [place] [address] Care Team Providers Care Surgery Consultant Name Role Phone Carlos Joyner MD Unavailable +[phone] Jadon Murray MD Unavailable +[phone] Maru Villagomez RN Unavailable Unavailable Ang Slade MD Unavailable +[phone] Carlos Joyner MD Unavailable +[phone] Ang Slade MD Unavailable +[phone] Lakshmi Wilhelm-C Unavailable +[phone] Heladio Willoughby MD Primary Care Provider +[phone] Heladio Willoughby MD Unavailable Alissa Perez PA-C Unavailable [phone] Lakshmi Wilhelm-C Unavailable +[phone] Aidee Valero PA-C Unavailable +[phone] Carlos Joyner MD Unavailable +[phone] Jadon Floyd MD Unavailable +[phone] Cayden Bejarano MD Unavailable Encounter Details Date Type Department Care Team (Late st Contact Info) Description 06/23/2024 [facility] Urology [place] [address] [facility] 4th [place] [address] Carlos Joyner MD [address] [place] [address] [phone] Social History Tobacco Use Types Packs/Day Years [...] [facility] [place] [facility] [address] 3rd [place] [address] Jadon Floyd MD [address] [place] [address] 03/23/2025 12:[address] [facility] Imaging [address] [facility] [address] [place] [address] [place] [address] [place] [address] 03/23/2025 1:30 PM CDT Hospital Encounter [facility] [address] [facility] [address] [place] [address] [place] [address] [place] [address] 03/25/2025 10:20 AM CDT Virtual Visit [facility] Sports Medicine [facility] [address] [place] [address] [address] [place] [address] [place] [address] [place] [address] 04/04/2025 12:00 PM SCENERY BUILDER Office Visit [facility] Sleep [facility] [address] [place] [phone] Sugey Mccoy, INFLATED BALL MOLDER [address] [address] 05/30/2025 10:20 AM SCENERY BUILDER Appointment [facility] [address] [facility] [address] [place] [address] Carlos Joyner MD [address] [place] [address] 797105 05/31/2025 2:00 PM SCENERY BUILDER Virtual Visit [facility] Urology Clinic [address] 4th [place] [address] Carlos Joyner MD 909 [place] [address] 07/25/2025 11:00 AM SCENERY BUILDER Office Visit [facility] [address] [place] [address] [place] [address] [place], [place] 8297268 documented as of this encounter Visit Diagnoses Not on filedocumented in this encounter Care Teams Surgery Consultant Relationship Specialty Start [place] [address] [address] [place], [place] 0704368 PCP - General 03/05/23 Carlos Joyner MD [address] [place] [address]591 Urology 12/09/19 Jadon Murray MD [facility] [address] [address] Referring Physician Pediatric Surgery 12/09/19 Maru Villagomez, OTILIO Registered Nurse 12/10/19 Ang Slade MD [address] [place] [address] Urology 04/24/20 Carlos Joyner MD [address] [place] [address] 73892 Assigned Surgical Provider 12/24/20 Ang Slade MD [address] [place] [address]70 Urology 12/18/22 Lakshmi Wilhelm PA-C [address] [place] [address] 06122 Physician Core Carrier Urology 02/03/23 [place] [address] [place] [address] Assigned PCP 02/06/23 Alissa Perez PA-C [address] [place] [address]39 Physician Core Carrier Surgery 09/04/23 Lakshmi Wilhelm PA-C [address] [place] [address] 79278 Physician Core Carrier Urology 09/16/23 Aidee Valero PA-C [address] [place] [address] 9[address]13 Assigned Musculoskeletal Provider 04/17/24 02/14/25 Carlos Joyner MD [address] [place] [address] 21868 Urology 01/26/25 Jadon Floyd MD [address] [place] [address] 620495 Physician Physical Medicine and Rehabilitation 01/31/25 [place] [address] [place] [address] Assigned Musculoskeletal Provider 02/15/25 Tanisha Marlow 4120 [facility] [address] 03/30/24 documented as of this encounter
--- OUTSIDE RECORDS SUMMARY | 2025-02-27 01:57 | XMS_ITS | Encounter Summary ---
Author Organization [facility] Address [address] [place] [address]32 Care Team Providers Care Log Marker Name Role Phone Carlos Joyner MD Unavailable + [phone] Jadon Murray MD Unavailable +[phone] Maru Villagomez RN Unavailable Unavailable Ang Slade MD Unavailable +[phone] Carlos Joyner MD Unavailable + [phone] Ang Slade MD Unavailable +- [phone] Lakshmi Wilhelm-C Unavailable +[phone] Heladio Willoughby MD Primary Care Provider [phone] Heladio Willoughby MD Unavailable Alissa Perez PA-C Unavailable [phone] Lakshmi Wilhelm PA-C Unavailable +- [phone] Aidee Valero PA-C Unavailable +[phone] Carlos Joyner MD Unavailable + [phone] Jadon Floyd MD Unavailable +[phone] Cayden Bejarano MD Unavailable Encounter Details Date Type Department Care Team (Late st Contact Info) Description 12/17/[address] [address] [place] [address] [place] [address] Social History Tobacco Use Types Packs/Day Years [...] [facility] Clinic [address] [phone] Jadon Floyd MD [address] [place] [address] 927035 03/23/2025 12:45 PM CDT Appointment [facility] Imaging [address] [place] [address] [place] [address] [place] [address] 03/23/2025 1:30 PM CDT Hospital Encounter [facility] Imaging [address] [place] [address] [place] [address] [place] [address] 03/25/2025 10:20 AM CDT Virtual Visit [facility] Medicine [facility] [place] [address] [facility] [address] [place] [address] [place] [address] [place] [address] 04/04/2025 12:00 PM X RAY DEVELOPER Office Visit [facility] [address] [facility] [place] [place] [address] Sugey Mccoy APRN [facility] [address] [place] [address] [address] [place] [address] 05/30/2025 10:20 AM X RAY DEVELOPER Appointment [facility] Imaging [address] [facility] [address] [place] [address] Carlos Joyner MD [address] [place] [address] 259405 05/31/2025 2:00 PM X RAY DEVELOPER Virtual Visit [facility] Urology Clinic [address] 4th [place] [address] Carlos Joyner MD [address] [place] [address] 059915 07/25/2025 11:00 AM X RAY DEVELOPER Office Visit [place] [address]75 [place] [address] [place] [address] [place] [address] documented as of this encounter Visit Diagnoses Not on filedocumented in this encounter Care Teams Log Marker Relationship Specialty [place] [address] [place] [address] PCP - General 03/05/23 Carlos Joyner MD [address] [place] [address] 17976 Urology 12/09/19 Jadon Murray MD [facility] 2530 [facility] [address] [place], [place] 89[address] Referring Physician Pediatric Surgery 12/09/19 Maru Villagomez, RN Registered Nurse 12/10/19 Ang Slade MD [address] [place] [address] 619055 Urology 04/24/20 Carlos Joyner MD [address] [place] [address] 088435 Assigned Surgical Provider 12/24/20 Ang Slade MD [address] [place] [address] 22622 Urology 12/18/22 Lakshmi Wilhelm PA-C [address] [place] [address] 054645 Physician Christian Counselor Urology 02/03/23 [place] [address] [place] [address] Assigned PCP 02/06/23 Alissa Perez PA-C [address] [place] [address]76 Physician Christian Counselor Surgery 09/04/23 Lakshmi Wilhelm PA-C [address] [place] [address] Physician Christian Counselor Urology 09/16/23 Aidee Valero PA-C [address] [place] [address] Assigned Musculoskeletal Provider 04/17/24 02/14/25 Carlos Joyner MD [address] [place] [address] Urology 01/26/25 Jadon Floyd MD [address] [place] [address]67 Physician Physical Medicine and Rehabilitation 01/31/25 [place] [address] [place] [address] Assigned Musculoskeletal Provider 02/15/25 Tanisha Marlow 4120 [facility] [address] 03/30/24 documented as of this encounter
--- OUTSIDE RECORDS SUMMARY | 2025-02-27 01:57 | XMS_ITS | Encounter Summary ---
Author Organization [place] Address [address] [place] [address] Care Team Providers Care Statistician Mathematical Name Role Phone Carlos Joyner MD Unavailable +[phone] Jadon Murray MD Unavailable +[phone] Maru Villagomez RN Unavailable Unavailable Ang Slade MD Unavailable +[phone] Carlos Joyner MD Unavailable +[phone] Ang Slade MD Unavailable +[phone] Lakshmi WilhelmC Unavailable +[phone] Heladio Willoughby MD Primary Care Provider +[phone] Heladio Willoughby MD Unavailable Alissa Perez-Juan A Unavailable +[phone] Lakshmi Wilhelm PA-C Unavailable +[phone] Carlos Joyner MD Unavailable +[phone] Jadon Floyd MD Unavailable +[phone] Cayden Bejarano MD Unavailable Encounter Details [...] Answer Date Recorded PHQ-2 Score 0 [facility] [...] Description 03/03/2025 9:00 AM CDT Office Visit [facility] Physical Medicine and Rehabilitation Clinic [address] [phone] Jadon Floyd MD [address] [place] [address] 03/23/2025 12:45 PM CDT Appointment [facility] Imaging [address] [facility] [address] [place] [address] [place] [address] [place] [address] 03/23/2025 1:30 PM CDT Hospital Encounter [facility] Imaging [address] [place] [address] Cayden Bejar[place] [address] [place] [address] 03/25/2025 10:20 AM CDT Virtual Visit [facility] [address] [place] [address] Cayden [place]jar[place] [address] [place] [address] 04/04/2025 12:00 PM LIBRARY ASSOCIATE Office Visit [facility] Sleep Center [place] [address] [place] [address] Darius Elvirginia Elder, SORTING LIVESTOCK WORKER [facility] [address] [place], [place] 8517[address] 05/30/2025 10:20 AM LIBRARY ASSOCIATE Appointment [facility] Imaging [address] [place] [address] Carlos Joyner MD [address] [place] [address] 646895 05/31/2025 2:00 PM LIBRARY ASSOCIATE Virtual Visit [facility] Urology Clinic [place] 909 [facility] 4th [place] [phone] Carlos Joyner MD [address] [place] [address] 07/25/2025 11:00 AM LIBRARY ASSOCIATE Office Visit [facility] [address] [place] [phone] [place] [address] [place] [address] documented as of this encounter Visit Diagnoses Not on filedocumented in this encounter Care Teams Statistician Mathematical Relationship Specialty Start [place] [address] [place] [address] PCP - General 03/05/23 Carlos Joyner MD [address] [place] [address] Urology 12/09/19 Jadon Murray MD [facility] 2530 [facility] 550 [place] [address] Referring Physician Pediatric Surgery 12/09/19 Maru Villagomez, RN Registered Nurse 12/10/19 Ang Slade MD [address] [place] [address] 394 [place], [place] 810125 Urology 04/24/20 Carlos Joyner MD [address] [place] [address] 369085 Assigned Surgical Provider 12/24/20 Ang Slade MD [address] [place] [address] 070265 Urology 12/18/22 Lakshmi Wilhelm PA-C [address] [place] [address] 320505 Physician Media Producer Urology 02/03/23 [place] [address] [place] [address] Assigned PCP 02/06/23 Alissa Perez PA-C [address] [place] [address] 456315 Physician Media Producer Surgery 09/04/23 Lakshmi Wilhelm PA-C [address] [place] [address] 846605 Physician Media Producer Urology 09/16/23 Carlos Joyner MD 909 [place], [place] 143705 Urology 01/26/25 Jadon Floyd MD 9 [place], [place] 536775 Physician Physical Medicine and Rehabilitation 01/31/25 [place] [address] [place] [address] Assigned Musculoskeletal Provider 02/15/25 Tainsha Marlow 4120 [facility] [address] 03/30/24 documented as of this encounter
--- OUTSIDE RECORDS SUMMARY | 2025-02-27 01:57 | XMS_ITS | Encounter Summary ---
Author Organization [facility] Address [address] [place] [address]37 Care Team Providers Care Sheet Cutter Name Role Phone Carlos Joyner MD Unavailable +[phone] Jadon Murray MD Unavailable +[phone] Maru Villagomez RN Unavailable Unavailable Ang Slade MD Unavailable +[phone] Carlos Joyner MD Unavailable +[phone] Ang Slade MD Unavailable +[phone] Lakshmi WilhelmC Unavailable [phone] Heladio Willoughby MD Primary Care Provider [phone] Heladio Willoughby MD Unavailable Alissa Perez-Juan A Unavailable [phone] Lakshmi Wilhelm PA-C Unavailable +[phone] Carlos Joyner MD Unavailable +[phone] Jadon Floyd MD Unavailable [phone] Cayden Bejarano MD Unavailable Encounter Details Date Type Department Care Team (Late st Contact Info) Description 02/25/2025 Results Follow-Up [facility] [address] 4th [place] [address] Rosita Velasco, RN Dx: Recurrent [...] 03/03/2025 9:00 AM CDT Office Visit [facility] [address] [phone] Jadon Floyd MD [address] [place] [address] 143245 03/23/2025 12:45 PM CDT Appointment [facility] [address] [facility] [address] [place] [address] [place] [id number] [place], [place] [address] [place] [address] 03/23/2025 1:30 PM CDT Hospital Encounter [facility] [address] [place] [address] [place] [address] [facility] [address] [place] [address] 03/25/2025 10:20 AM CDT Virtual Visit [facility] [place] [address] [place] [address] [place] [address] [place] [address] 04/04/2025 12:00 PM BAKESHOP CLEANER Office Visit [facility] [place] [address] [place] [address] Sugey Mccoy, SUPPLY PERSON [facility] [address] [place] [address] 05/30/2025 10:20 AM BAKESHOP CLEANER Appointment [facility] [address] [place] [address] Carlos Joyner MD [address] [place] [address] 264545 05/31/2025 2:00 PM BAKESHOP CLEANER Virtual Visit [facility] [place] [address] [place] [address] 4th [place] [address] Carlos Joyner MD [address] [place] [address] 153235 07/25/2025 11:00 AM BAKESHOP CLEANER Office Visit [facility] [address] [place] [address] [place] [address] [place] [address] documented as of this encounter Visit Diagnoses Diagnosis Recurrent UTI- Primary Urinary tract infection, site not specified documented in this encounter Care Teams Sheet Cutter Relationship Specialty [place] [address] [place] [address] PCP - General 03/05/23 Carlos Joyner MD [address] [place] [address]60[address] Urology 12/09/19 Jadon Murray MD [facility] [address] [address] Referring Physician Pediatric Surgery 12/09/19 Maru Villagomez, OTILIO Registered Nurse 12/10/19 Ang Slade MD [address] [place] [address] 992[address] Urology 04/24/20 Carlos Joyner MD [address] [place] [address] 90890 Assigned Surgical Provider 12/24/20 Ang Slade MD [address] [place] [address] 31137 Urology 12/18/22 Lakshmi Wilhelm PA-C [address] [place] [address] 26969 Physician Red Mud Thickener Operator Urology 02/03/23 [place] [address] [facility] [place] [place], [place] 3845068 Assigned PCP 02/06/23 Alissa Perez PA-C [address] [place] [address] 586035 Physician Red Mud Thickener Operator Surgery 09/04/23 Lakshmi Wilhelm PA-C [address] [place] [address] 898645 Physician Red Mud Thickener Operator Urology 09/16/23 Carlos Joyner MD [address] [place] [address] 158185 Urology 01/26/25 Jadon Floyd MD [address] [place] [address] 090565 Physician Physical Medicine and Rehabilitation 01/31/25 [place] [address] [place] [address] Assigned Musculoskeletal Provider 02/15/25 Tanisha Marlow [address] [place] [address] 03/30/24 documented as of this encounter
--- OUTSIDE RECORDS SUMMARY | 2025-02-27 01:57 | XMS_ITS | Encounter Summary ---
Author Organization [place] Address [address] [place] [address]41 Care Team Providers Care Microwave Remote Sensing Scientist Name Role Phone Carlos Joyner MD Unavailable + [phone] Jadon Murray MD Unavailable +[phone] Maru Villagomez RN Unavailable Unavailable Ang Slade MD Unavailable +[phone] Carlos Joyner MD Unavailable + [phone] Ang Slade MD Unavailable [phone] Lakshmi Wilhelm-C Unavailable +[phone] Heladio Willoughby MD Primary Care Provider [phone] Heladio Willoughby MD Unavailable Alissa Perez PA-C Unavailable [phone] Lakshmi Wilhelm-C Unavailable [phone] Aidee Valero PA-C Unavailable +[phone] Carlos Joyner MD Unavailable + [phone] Jadon Floyd MD Unavailable [phone] Cayden Bejarano MD Unavailable Encounter Details Date Type Department Care Team (Late st Contact Info) Description 04/01/2024 [facility] [place] [address] [facility] 4th [place] [address] Aidee Valero PA-C [address] [place] [address] Social History Tobacco Use Types Packs/Day Years [...] Center Physical Medicine and Rehabilitation Clinic [address] 3rd [place] [address] Jadon Floyd MD [address] [place] [address] 03/23/2025 12:45 PM CDT Appointment [facility] [address] [facility] [address] [place] [address] Cayden [place]jarano [place] [address] [place] [address] [address] [place] [address] 03/23/2025 1:30 PM CDT Hospital Encounter [facility] [address] [facility] [address] [place] [address] [place] [address] [place] [address] 03/25/2025 10:20 AM CDT Virtual Visit [facility] Sports Medicine [facility] [address] [place] [address] [address] [place] [address] [place] [address] [place] [address] 04/04/2025 12:00 PM TRAY FILLER Office Visit [facility] Sleep [facility] [address] [place] [phone] Sugey Mccoy, SOLDERER [address] [address] 05/30/2025 10:20 AM TRAY FILLER Appointment [facility] [address] [facility] [address] [place] [address] Carlos Joyner MD [address] [place] [address] 05/31/2025 2:00 PM TRAY FILLER Virtual Visit [facility] Urology Clinic [address] 4th [place] [address] Carlos Joyner MD 909 [place] [address] 07/25/2025 11:00 AM TRAY FILLER Office Visit [facility] [address] [facility] [place] [phone] [place] [address] [facility] [place], [place] 8364868 documented as of this encounter Visit Diagnoses Not on filedocumented in this encounter Care Teams Microwave Remote Sensing Scientist Relationship Specialty Start [place] [address] [address] [place], [place] [phone] PCP - General 03/05/23 Carlos Joyner MD [address] [place] [address] 21065 Urology 12/09/19 Jadon Murray MD [facility] [address] [address] Referring Physician Pediatric Surgery 12/09/19 Maru Villagomez, OTILIO Registered Nurse 12/10/19 Ang Slade MD [address] [place] [address] Urology 04/24/20 Carlos Joyner MD [address] [place] [address] 01199 Assigned Surgical Provider 12/24/20 Ang Slade MD [address] [place] [address] 42273 Urology 12/18/22 Lakshmi Wilhelm PA-C [address] [place] [address] 42281 Physician Tool Polishing Machine Operator Urology 02/03/23 [place] [address] [place] [address] Assigned PCP 02/06/23 Alissa Perez PA-C [address] [place] [address] Physician Tool Polishing Machine Operator Surgery 09/04/23 Lakshmi Wilhelm PA-C [address] [place] [address] 86867 Physician Tool Polishing Machine Operator Urology 09/16/23 Aidee Valero PA-C [address] [place] [address] 29698 Assigned Musculoskeletal Provider 04/17/24 02/14/25 Carlos Joyner MD [address] [place] [address] 47909 Urology 01/26/25 Jadon Floyd MD [address] [place] [address] 524745 Physician Physical Medicine and Rehabilitation 01/31/25 [place] [address] [place] [address] Assigned Musculoskeletal Provider 02/15/25 Tanisha Marlow 4120 [facility] [address] 03/30/24 documented as of this encounter
--- OUTSIDE RECORDS SUMMARY | 2025-02-27 01:58 | XMS_ITS | Encounter Summary ---
Author Organization [place] Address [address] [place] [address]42 Care Team Providers Care Denture Technician Name Role Phone Carlos Joyner MD Unavailable [phone] Jadon Murray MD Unavailable +[phone] Mrau Villagomez RN Unavailable Unavailable Ang Slade MD Unavailable [phone] Carlos Jonyer MD Unavailable +[phone] Ang Slade MD Unavailable [phone] Lakshmi Wilhelm PA-C Unavailable +[phone] Heladio Willoughby MD Primary Care Provider [phone] Heladio Willoughby MD Unavailable Alissa Perez PA-C Unavailable [phone] Lakshmi Wilhelm PA-C Unavailable [phone] Aidee Valero PA-C Unavailable [phone] Carlos Joyner MD Unavailable +[phone] Jadon Floyd MD Unavailable +[phone] Cayden Bejarano MD Unavailable Reason for Visit * Reason Onset Date Comments Referral 01/25/2025 Encounter Details Date Type Department Care Team (Late st Contact Info) Description 01/25/2025 Telephone [facility] [place] [address] [address] Unknown Referral Social History Tobacco [...] Date Recorded PHQ-2 Score 0 09/13/2024 [facility] [...] Leon Serna - 01/25/2025 9:45 AM CDT [facility] Call Center Phone Message May a detailed message be left on voicemail: yes Reason for Call: Appointment Intake Referring Provider Name: Heladio Willoughby MD Diagnosis and/or Symptoms: Pressure injury of left lower back, stage 2 (H) History of pressure injury of skin Paraplegia (H) Action Taken: Other: Routed to [facility] Physical Medicine and Rehabilitation Adult [facility] Travel Screening: Not Applicable Please review and contact patient for scheduling, reasons for referral are not on scheduling guidelines documented in this encounter Plan of Treatment Upcoming Encounters Date Type Department Care Team (Late st Contact Info) Description 03/03/2025 9:00 AM CDT Office Visit [facility] [address] [place] [address] Jadon Floyd MD [address] [place] [address] 03/23/2025 12:45 PM CDT Appointment [facility] [address] [place] [address] [place] [address] [place] [address] 03/23/2025 1:30 PM CDT Hospital Encounter [facility] [address] [place] [address] [place] [address] [place] [address] 03/25/2025 10:20 AM CDT Virtual Visit [facility] [address] [place] [address] Drive [address] [place] [address] [place] [address] [place] [address] 04/04/2025 12:00 PM MIDDLE SCHOOL GUIDANCE COUNSELOR Office Visit [facility] [address] [phone] Sugey Mccoy, NAIL GALVANIZER [address] 753144 05/30/2025 10:20 AM MIDDLE SCHOOL GUIDANCE COUNSELOR Appointment [facility] [address] [facility] [address] [place] [address] Carlos Joyner MD [address] [place] [address] [phone] 05/31/2025 2:00 PM MIDDLE SCHOOL GUIDANCE COUNSELOR Virtual Visit [facility] [address] [place] [address] Carlos Joyner MD 909 [place] [address] 07/25/2025 11:00 AM MIDDLE SCHOOL GUIDANCE COUNSELOR Office Visit [facility] [address] [place] [phone] [place] [address] [place], [place] [phone] documented as of this encounter Visit Diagnoses Not on filedocumented in this encounter Care Teams Denture Technician Relationship Specialty Start [place] [address] [address] [place], [place] [phone] PCP - General 03/05/23 Carlos Joyner MD [address] [place] [address] 701235 Urology 12/09/19 Jadon Murray MD [facility] [address] [address] Referring Physician Pediatric Surgery 12/09/19 Maru Villagomez RN Registered Nurse 12/10/19 nAg Slade MD [address] [place] [address] 28169 Urology 04/24/20 Carlos Joyner MD [address] [place] [address] 83897 Assigned Surgical Provider 12/24/20 Ang Slade MD [address] [place] [address] 394 [place], [place] 573255 Urology 12/18/22 Lakshmi Wilhelm PA-C [address] [place] [address] 106515 Physician Care Worker Urology 02/03/23 [place] [address] [place], [place] 5366568 Assigned PCP 02/06/23 Alissa Perez PA-C [address] [place] [address] 479655 Physician Care Worker Surgery 09/04/23 Lakshmi Wilhelm PA-C [address] [place] [address] 273325 Physician Care Worker Urology 09/16/23 Aidee Valero PA-C [address] [place] [address] 897535 Assigned Musculoskeletal Provider 04/17/24 02/14/25 Carlos Joyner MD [address] [place] [address] 442545 Urology 01/26/25 Jadon Floyd MD [address] [place] [address] 001275 Physician Physical Medicine and Rehabilitation 01/31/25 [place] [address] [place] [address] Assigned Musculoskeletal Provider 02/15/25 Tanisha Marlow 4120 [facility] [address] 03/30/24 documented as of this encounter
--- OUTSIDE RECORDS SUMMARY | 2025-02-27 01:58 | XMS_ITS | Encounter Summary ---
Author Organization [facility] Address [address] [place] [address]46 Care Team Providers Care Sales Representative Groceries Name Role Phone Carlos Joyner MD Unavailable [phone] Jadon Murray MD Unavailable +[phone] Maru Villagomez RN Unavailable Unavailable Ang Slade MD Unavailable +[phone] Carlos Joyner MD Unavailable +[phone] Ang Slade MD Unavailable +[phone] Lakshmi Wilhelm-C Unavailable [phone] Heladio Willoughby MD Primary Care Provider [phone] Heladio Willoughby MD Unavailable Alissa Perez PA-C Unavailable [phone] Lakshmi Wilhelm-C Unavailable [phone] Aidee Valero PA-C Unavailable +[phone] Carlos Joyner MD Unavailable +[phone] Jadon Floyd MD Unavailable [phone] Cayden Bejarano MD Unavailable Reason for Visit * Reason Onset Date Comments Forms 02/06/2024 Ger Torres [facility] Education [employer] - Medication Authorization Form Encounter Details Date Type Department Care Team (Late st Contact Info) Description 02/06/2024 [facility] [address] [place] [address] [place] [address] [place] [address] Forms ([facility] Education Residential Sales Rep... Social History Tobacco Use Types Packs/Day Years [...] Authorization Form Who is the form from? [facility] (if other please explain) Where did/will the form come from? form was sent via [employer] When is form/letter needed by: RUPA How would you like the form/letter returned: MyChart Printed forms and placed in provider's basket for review and signature Kasia Gutierrez Lead Packaging Machine Operator [facility] documented in this encounter Plan of Treatment Upcoming Encounters Date Type Department Care Team (Late st Contact Info) Description 03/03/2025 9:00 AM CDT Office Visit [facility] Rehabilitation Clinic [address] [phone] Jadon Floyd MD [address] [place] [address] 03/23/2025 12:45 PM CDT Appointment [facility] [address] [facility] [address] [place] [address] Cayden Bejarano [place] [address] [place] [address] 03/23/2025 1:30 PM CDT Hospital Encounter [facility] [address] [place] [address] [place] [address] [place] [address] 03/25/2025 10:20 AM CDT Virtual Visit [facility] [place] [address] [place] [address] [place] [address] [place] [address] 04/04/2025 12:00 PM WHEAT INSPECTOR Office Visit [facility] [place] [address] [place] [address] Sugey Mccoy, [facility] [address] [place] [address] 05/30/2025 10:20 AM WHEAT INSPECTOR Appointment [facility] [address] [place] [address] Carlos Joyner MD [address] [place] [address] 44274455 05/31/2025 2:00 PM WHEAT INSPECTOR Virtual Visit [facility] U[facility] Clinic [address] 4th [place] [address] Carlos Joyner MD [address] [place] [address] 786935 07/25/2025 11:00 AM WHEAT INSPECTOR Office Visit [facility] [address] [place] [address] [place] [address] [place] [address] documented as of this encounter Visit Diagnoses Not on filedocumented in this encounter Care Teams Sales Representative Groceries Relationship Specialty Start Date End Date Heladio [place]by [place] [address] [place] [address] PCP - General 03/05/23 Carlos Joyner MD [address] [place] [address] 805365 Urology 12/09/19 Jadon Murray MD [facility] 2530 [facility] 550 [place] [address] Referring Physician Pediatric Surgery 12/09/19 Maru Villagomez, RN Registered Nurse 12/10/19 Ang Slade MD 420 [facility] 394 [place], [place] 258385 MD Urology 04/24/20 Carlos Joyner MD [address] [place] [address] [phone] Assigned Surgical Provider 12/24/20 Ang Slade MD 420 [facility] 394 [place], [place] 64[address] MD Urology 12/18/22 Lakshmi Wilhelm PA-C [address] [place] [address] 675175 Physician Batchmaker Urology 02/03/23 [place] [address] [place] [address] Assigned PCP 02/06/23 Alissa Perez PA-C [address] [place] [address] 416715 Physician Batchmaker Surgery 09/04/23 Lakshmi Wilhelm PA-C [address] [place] [address] Physician Batchmaker Urology 09/16/23 Aidee Valero PA-C 9 [place] [address] Assigned Musculoskeletal Provider 04/17/24 02/14/25 Carlos Joyner MD [address] [place] [address] Urology 01/26/25 Jadon Floyd MD [address] [place] [address] 45665 Physician Physical Medicine and Rehabilitation 01/31/25 [place] [address] [place] [address] Assigned Musculoskeletal Provider 02/15/25 Tanisha Marlow [facility]0 [place] [address] 03/30/24 documented as of this encounter
--- OUTSIDE RECORDS SUMMARY | 2025-02-27 01:58 | XMS_ITS | Encounter Summary ---
Author Organization [facility] Address [address] [place] [address] Care Team Providers Care Sql Database Administrator Name Role Phone Carlos Joyner MD Unavailable + [phone] Jadon Murray MD Unavailable +[phone] Maru Villagomez RN Unavailable Unavailable Ang Slade MD Unavailable +[phone] Carlos Joyner MD Unavailable +[phone] Ang Slade MD Unavailable [phone] Lakshmi Wilhelm-C Unavailable +[phone] Heladio Willoughby MD Primary Care Provider +[phone] Heladio Willoughby MD Unavailable Alissa Perez PA-C Unavailable [phone] Lakshmi Wilhelm-C Unavailable +[phone] Aidee Valero PA-C Unavailable +[phone] Carlos Joyner MD Unavailable +[phone] Jadon Floyd MD Unavailable +[phone] Cayden Bejarano MD Unavailable Encounter Details Date Type Department Care Team (Late st Contact Info) Description 02/13/2024 [facility] Urology [place] [id number] [facility] [address]th [place] [address] Carlos Joyner MD [address] [place] [address] [id number] Social History Tobacco Use Types Packs/Day Years [...] Description 03/03/2025 9:00 AM CDT Office Visit [facility] [address] 3rd [place] [address] Jadon Floyd MD [address] [place] [address] 03/23/2025 12:45 PM CDT Appointment [facility] [address] [facility] [address] [place] [address] [place] [address] [place] [address] 03/23/2025 1:30 PM CDT Hospital Encounter [facility] [address] [facility] [address] [place] [address] [place] [address] [place] [address] 03/25/2025 10:20 AM CDT Virtual Visit [facility] Sports Medicine [facility] [address] [place] [address] [address] [place] [address] [place] [address] [place] [address] 04/04/2025 12:00 PM EDUCATION ADMINISTRATOR Office Visit [facility] Sleep [facility] [address] [place] [phone] Sugey Mccoy, LAY OUT AND DETAIL DRAFTER [address] [address] 05/30/2025 10:20 AM EDUCATION ADMINISTRATOR Appointment [facility] [address] [facility] [address] [place] [address] Carlos Joyner MD [address] [place] [address] 882695 05/31/2025 2:00 PM EDUCATION ADMINISTRATOR Virtual Visit [facility] Urology Clinic [address] 4th [place] [address] Carlos Joyner MD [address] [place] [address] 07/25/2025 11:00 AM EDUCATION ADMINISTRATOR Office [facility] [address] [place] [address] [place] [address] [place], [place] 1027868 documented as of this encounter Visit Diagnoses Not on filedocumented in this encounter Care Teams Sql Database Administrator Relationship Specialty Start [place] [address] [place], [place] [phone] PCP - General 03/05/23 Carlos Joyner MD [address] [place] [address] Urology 12/09/19 Jadon Murray MD [facility] [address] [address] Referring Physician Pediatric Surgery 12/09/19 Maru Villagomez, TOILIO Registered Nurse 12/10/19 Ang Slade MD [address] [place] [address] Urology 04/24/20 Carlos Joyner MD [address] [place] [address] Assigned Surgical Provider 12/24/20 Agn Slade MD [address] [place] [address] Urology 12/18/22 Lakshmi Wilhelm PA-C [address] [place] [address] 26971 Physician Reinsurance Claims Analyst Urology 02/03/23 [place] [address] [place] [address] Assigned PCP 02/06/23 Alissa Perez PA-C [address] [place] [address] Physician Reinsurance Claims Analyst Surgery 09/04/23 Lakshmi Wilhelm PA-C [address] [place] [address] Physician Reinsurance Claims Analyst Urology 09/16/23 Aidee Valero PA-C [address] [place] [address] Assigned Musculoskeletal Provider 04/17/24 02/14/25 Carlos Joyner MD [address] [place] [address] Urology 01/26/25 Jadon Floyd MD [address] [place] [address] 233335 Physician Physical Medicine and Rehabilitation 01/31/25 [place] [address] [place] [address] Assigned Musculoskeletal Provider 02/15/25 Tanisha Marlow 4120 [facility] [address] 03/30/24 documented as of this encounter
--- OUTSIDE RECORDS SUMMARY | 2025-02-27 01:58 | XMS_ITS | Encounter Summary ---
Author Organization [facility] Address [address] [place] [address] Care Team Providers Care Store Receiver Name Role Phone Carlos Joyner MD Unavailable [phone] Jadon Murray MD Unavailable [phone] Maru Villagomez RN Unavailable Unavailable Ang Slade MD Unavailable +[phone] Carlos Joyner MD Unavailable +[phone] Ang Slade MD Unavailable [phone] Lakshmi WilhelmC Unavailable +[phone] Heladio Willoughby MD Primary Care Provider [phone] Heladio Willoughby MD Unavailable Alissa Perez-C Unavailable [phone] Lakshmi Wilhelm PA-C Unavailable +[phone] Aidee Valero-C Unavailable +[phone] Encounter Details Date Type Department Care Team [...] Answer Date Recorded PHQ-2 Score 0 09/13/2024 [facility] [...] And Clinic Physical Medicine and Rehabilitation Clinic [address] [phone] Jadon Floyd MD [address] [place] [address] 03/23/2025 12:45 PM CDT Appointment [facility] [address] [facility] [address] [place] [address] Cayden Bejarano MD [address] [place], [place] [address]A[address] [place] [address] 03/23/2025 1:30 PM CDT Hospital Encounter [facility] [address] [place] [address] Cayden Bejarano MD [address] [place], [place] [address]A[address] [place] [address] 03/25/2025 10:20 AM CDT Virtual Visit [facility] [place] [address] [place] [address] Cayden Bejarano MD [address] [place] [address] [address] [place] [address] 04/04/2025 12:00 PM ORDNANCE HANDLER Office Visit [facility] [place] [address] [place] [phone] Sugey Mccoy, CERTIFIED WELDING INSPECTOR [facility] [address] [place] [address] [address] [place] [address] 05/30/2025 10:20 AM ORDNANCE HANDLER Appointment [facility] [address] [facility] [address] [place] [address] Carlos Joyner MD [address] [place] [address] 111805 05/31/2025 2:00 PM ORDNANCE HANDLER Virtual Visit [facility] Urology [facility] [place] 909 [facility] 4th [place] [address] Carlos Joyner MD [address] [place] [address] 622605 07/25/2025 11:00 AM ORDNANCE HANDLER Office Visit [facility] [address] [place] [address] [place] [address] [place], [place] [phone] documented as of this encounter Visit Diagnoses Not on filedocumented in this encounter Care Teams Store Receiver Relationship Specialty Start [place] [address] [place] [address] PCP - General 03/05/23 Carlos Joyner MD [address] [place] [address] Urology 12/09/19 Jadon Murray MD [facility] 2530 [facility] 550 [place] [address] Referring Physician Pediatric Surgery 12/09/19 Maru Villagomez, RN Registered Nurse 12/10/19 Ang Slade MD [address] [facility] [address] [place], [place] 406595 Urology 04/24/20 Carlos Joyner MD [address] [place] [address] Assigned Surgical Provider 12/24/20 Ang Slade MD [address] [facility] 394 [place], [place] 540485 MD Urology 12/18/22 Lakshmi Wilhelm PA-C [address] [place] [address] 655255 Physician Study Hall Supervisor Urology 02/03/23 [place] [address] [place] [address] Assigned PCP 02/06/23 Alissa Perez PA-C [address] [place] [address] 373485 Physician Study Hall Supervisor Surgery 09/04/23 Lakshmi Wilhelm PA-C [address] [place] [address] 820385 Physician Study Hall Supervisor Urology 09/16/23 Aidee Valero PA-C [address] [place] [address] [place] [address] Assigned Musculoskeletal Provider 04/17/24 02/14/25 Tanisha Marlow 4120 [facility] [address] 03/30/24 documented as of this encounter
--- OUTSIDE RECORDS SUMMARY | 2025-02-27 01:58 | XMS_ITS | Encounter Summary ---
Author Organization [facility] Address [address] [place] [address]. [place] [address] Care Team Providers Care Technology Architect Name Role Phone Carlos Joyner MD Unavailable [phone] Jadon Murray MD Unavailable [phone] Maru Villagomez RN Unavailable Unavailable Ang Slade MD Unavailable +[phone] Carlos Joyner MD Unavailable +[phone] Ang Slade MD Unavailable [phone] Lakshmi Wilhelm-C Unavailable +[phone] Heladio Willoughby MD Primary Care Provider [phone] Heladio Willoughby MD Unavailable Alissa Perez PA-C Unavailable [phone] Lakshmi Wilhelm-C Unavailable [phone] Aidee Valero PA-C Unavailable [phone] Encounter Details Date Type Department Care Team (Late st Contact Info) Description 01/24/2025 Telephone [facility] [address] [place] [address] [place] [address] [place] [address] Social History Tobacco Use Types [...] Answer Date Recorded PHQ-2 Score 0 09/13/2024 [facility] [...] RN called and spoke to Tanisha at [facility]. Reviewed referral and provider recommendation.Provided referral scheduling phone number. Tanisha verbalized understanding and denies questions. Kalee Vogel RN [facility] * Telephone Encounter - Heladio Willoughby [...] team know. Thanks, Heladio Elder. MD Case [facility] 01/24/2025 documented in this encounter Plan of Treatment Upcoming Encounters Date Type Department Care Team (Late st Contact Info) Description 03/03/2025 9:00 AM CDT Office Visit [facility] Physical Medicine and Rehabilitation Clinic [address] 3rd [place] [address] Jadon Floyd MD [address] [place] [address] 443785 03/23/2025 12:45 PM CDT Appointment [facility] [address] [place] [address] Cayden [place]jar[place] [address] [place] [address] [address] [place] [address] 03/23/2025 1:30 PM CDT Hospital Encounter [facility] [address] [facility] [address] [place] [address] Cayden [place]jarano [place] [address] [place] [address] [address] [place] [address] 03/25/2025 10:20 AM CDT Virtual Visit [facility] Sports Medicine [facility] [place] [address] [place] [address] [address] [place] [address] [place] [address] [place] [address] 04/04/2025 12:00 PM CARTRIDGE GAUGER Office Visit [facility] Sleep [address] [phone] Sugey Mccoy, DIVISION HEAD [address] [phone] 05/30/2025 10:20 AM CARTRIDGE GAUGER Appointment [facility] [address] [facility] [address] [place] [address] Carlos Joyner MD [address] [place] [address] 342645 05/31/2025 2:00 PM CARTRIDGE GAUGER Virtual Visit [facility] Urology Clinic [address] 4th [place] [address] Carlos Joyner MD [address] [place] [address] 07/25/2025 11:00 AM CARTRIDGE GAUGER Office Visit [facility] [address] [place] [address] [place] [address] [place], [place] 2109368 documented as of this encounter Visit Diagnoses Not on filedocumented in this encounter Care Teams Technology Architect Relationship Specialty Start Date End Date Heladio [place] [address] [place] [address] [id number] PCP - General 03/05/23 Carlos Joyner MD [address] [place] [address] 536765 Urology 12/09/19 Jadon Murray MD [facility] [address] [address] Referring Physician Pediatric Surgery 12/09/19 Maru Villagomez, OTILIO Registered Nurse 12/10/19 Ang Slade MD [address] [place] [address] Urology 04/24/20 Carlos Joyner MD [address] [place] [address] 164195 Assigned Surgical Provider 12/24/20 Ang Slade MD [address] [place] [address] 649785 MD Urology 12/18/22 Lakshmi Wilhelm PA-C [address] [place] [address]96 Physician Animal Nurse Urology 02/03/23 [place] [address] [place] [address] Assigned PCP 02/06/23 Alissa Perez PA-C [address] [place] [address] 165695 Physician Animal Nurse Surgery 09/04/23 Lakshmi Wilhelm PA-C [address] [place] [address] 512065 Physician Animal Nurse Urology 09/16/23 Aidee Valero PA-C [address] [place] [address] 345905 Assigned Musculoskeletal Provider 04/17/24 02/14/25 Tanisha Marlow 4120 [facility] [address] 03/30/24 documented as of this encounter
--- OUTSIDE RECORDS SUMMARY | 2025-02-27 01:58 | XMS_ITS | Encounter Summary ---
Author Organization [facility] Address [address] [place] [address] Care Team Providers Care Bar Hostess Name Role Phone Carlos Joyner MD Unavailable [phone] Jadon Murray MD Unavailable +[phone] Maru Villagomez RN Unavailable Unavailable Ang Slade MD Unavailable +[phone] Carlos Joyner MD Unavailable +[phone] Ang Slade MD Unavailable [phone] Lakshmi WilhelmC Unavailable [phone] Heladio Willoughby MD Primary Care Provider [phone] Heladio Willoughby MD Unavailable Alissa Perez-C Unavailable [phone] Lakshmi Wilhelm PA-C Unavailable [phone] Aidee Valero-C Unavailable +[phone] Encounter Details Date Type Department Care Team [...] Answer Date Recorded PHQ-2 Score 0 09/13/2024 [facility] - Occupational Stress Questionnaire Answer Date [...] Center Physical Medicine and Rehabilitation Clinic [address] [phone] Jadon Floyd MD [address] [place] [address] 03/23/2025 12:45 PM CDT Appointment [facility] [address] [facility] [address] [place] [address] Cayden Bejarano MD [address] [place], [place] [address] [place] [address] 03/23/2025 1:30 PM CDT Hospital Encounter [facility] [address] [place] [address] Cayden Bejarano MD [address] [place], [place] [address]A[address] [place] [address] 03/25/2025 10:20 AM CDT Virtual Visit [facility] Sports Medicine [facility] [place] [address] [place] [address] Cayden Bejarano MD [address] [place] [address] [address] [place] [address] 04/04/2025 12:00 PM CAR BODY DESIGNER Office Visit [facility] [place] [address] [place] [address] Sugey Mccoy, [facility] [address] [place] [address] [address] [place] [address] 05/30/2025 10:20 AM CAR BODY DESIGNER Appointment [facility] [address] [facility] [address] [place] [address] Carlos Joyner MD [address] [place] [address] 581595 05/31/2025 2:00 PM CAR BODY DESIGNER Virtual Visit [facility]rology [facility] [place] [address] [facility] 4th [place] [address] Carlos Joyner MD [address] [place] [address] 699545 07/25/2025 11:00 AM CAR BODY DESIGNER Office Visit [facility] [address] [place] [address] [place] [address] [place], [place] 0793868 documented as of this encounter Visit Diagnoses Not on filedocumented in this encounter Care Teams Bar Hostess Relationship Specialty Start [place] [address] [place] [address] PCP - General 03/05/23 Carlos Joyner MD [address] [place] [address] Urology 12/09/19 Jadon Murray MD [facility] 2530 [facility] 550 [place] [address] Referring Physician Pediatric Surgery 12/09/19 Maru Villagomez, RN Registered Nurse 12/10/19 Ang Slade MD 420 [facility] 394 [place], [place] 219385 Urology 04/24/20 Carlos Joyner MD [address] [place] [address] Assigned Surgical Provider 12/24/20 Ang Slade MD 420 [facility] 394 [place], [place] 759175 MD Urology 12/18/22 Lakshmi Wilhelm PA-C [address] [place] [address] 174095 Physician Senior Clinical Study Manager Urology 02/03/23 [place] [address] [place] [address] Assigned PCP 02/06/23 Alissa Perez PA-C [address] [place] [address] 763855 Physician Senior Clinical Study Manager Surgery 09/04/23 Lakshmi Wilhelm PA-C [address] [place] [address] 267285 Physician Senior Clinical Study Manager Urology 09/16/23 Aidee Valero PA-C [address] [place] [address] [place] [address] Assigned Musculoskeletal Provider 04/17/24 02/14/25 Tanisha Marlow 4120 [facility] [address] 03/30/24 documented as of this encounter
--- OUTSIDE RECORDS SUMMARY | 2025-02-27 01:58 | XMS_ITS | Encounter Summary ---
Author Organization [facility] Address [address] [place] [address] Care Team Providers Care Maint Mechanic Name Role Phone Carlos Joyner MD Unavailable [phone] Jadon Murray MD Unavailable +[phone] Maru Villagomez RN Unavailable Unavailable Ang Slade MD Unavailable [phone] Carlos Joyner MD Unavailable +[phone] Ang Slade MD Unavailable +[phone] Lakshmi Wilhelm-C Unavailable +[phone] Heladio Willoughby MD Primary Care Provider [phone] Heladio Willoughby MD Unavailable Alissa Perez PA-C Unavailable [phone] MaLakshmi morales-C Unavailable [phone] Aidee Valero PA-C Unavailable [phone] Carlos Joyner MD Unavailable +[phone] Jadon Floyd MD Unavailable [phone] Encounter Details Date Type Department Care [...] And Clinic Physical Medicine and Rehabilitation Clinic [address] [phone] Jadon Floyd MD [address] [place] [address] 03/23/2025 12:45 PM CDT Appointment [facility] [address] [facility] [address] [place] [address] [place] [address] [facility] [address] [address] [place] [address] 03/23/2025 1:30 PM CDT Hospital Encounter [facility] [address] [place] [address] [place] [address] [facility] [address] [place] [address] 03/25/2025 10:20 AM CDT Virtual Visit [facility] Sports Medicine Clinic [place] [address] [place], [place] [address] [place] [address] [place] [address] [place] [address] [address] [place] [address] 04/04/2025 12:00 PM LEAD NETWORK ENGINEER Office Visit [facility] [place] [address] [place] [address] DariusElvirginia Elder, HAZARD MITIGATION OFFICER [facility] [address] [place], [place] 778824 05/30/2025 10:20 AM LEAD NETWORK ENGINEER Appointment [facility] [address] [place] [address] Carlos Joyner MD [address] [place] [address] 830605 05/31/2025 2:00 PM LEAD NETWORK ENGINEER Virtual Visit [facility] Urology Clinic [place] 909 [facility] 4th [place] [address] Carlos Joyner MD [address] [place] [address] 53965455 07/25/2025 11:00 AM LEAD NETWORK ENGINEER Office Visit [facility] [address] [place] [address] [place] [address] [place] [address] documented as of this encounter Visit Diagnoses Not on filedocumented in this encounter Care Teams Maint Mechanic Relationship Specialty Start Date End Date Heladio [place]by [place] [address] [place] [address] PCP - General 03/05/23 Carlos Joyner MD [address] [place] [address] [phone] Urology 12/09/19 Jadon Murray MD [facility] 2530 [facility] 550 [place] [address] Referring Physician Pediatric Surgery 12/09/19 Maru Villagomez, RN Registered Nurse 12/10/19 Ang Slade MD [address] [place] [address] 394 [place] [address] Urology 04/24/20 Carlos Joyner MD [address] [place] [address] 745815 Assigned Surgical Provider 12/24/20 Ang Slade MD [address] [place] [address] 394 [place] [address] Urology 12/18/22 Lakshmi Wilhelm PA-C [address] [place] [address] 636125 Physician Traffic Signal Mechanic Urology 02/03/23 [place] [address] [place] [address] Assigned PCP 02/06/23 Alissa Perez PA-C [address] [place] [address] 698865 Physician Traffic Signal Mechanic Surgery 09/04/23 Lakshmi Wilhelm PA-C [address] [place] [address] 823345 Physician Traffic Signal Mechanic Urology 09/16/23 Aidee Valero PA-C [address] [place] [address] 319055 Assigned Musculoskeletal Provider 04/17/24 02/14/25 Carlos Joyner MD [address] [place] [address] 240145 Urology 01/26/25 Jadon Floyd MD [address] [place] [address] 877195 Physician Physical Medicine and Rehabilitation 01/31/25 Tanisha Marlow 4120 [facility] [address] 03/30/24 documented as of this encounter
--- OUTSIDE RECORDS SUMMARY | 2025-02-27 01:58 | XMS_ITS | Encounter Summary ---
Author Organization [place] Address [address] [place] [address] Care Team Providers Care Sole Ruffer Name Role Phone Carlos Joyner MD Unavailable [phone] Jadon Murray MD Unavailable [phone] Maru Villagomez RN Unavailable Unavailable Ang Slade MD Unavailable +[phone] Carlos Joyner MD Unavailable [phone] Ang Slade MD Unavailable [phone] Lakshmi WilhelmC Unavailable +[phone] Heladio Willoughby MD Primary Care Provider [phone] Heladio Willoughby MD Unavailable Alissa Perez PA-C Unavailable [phone] Lakshmi Wilhelm PA-C Unavailable +[phone] Aidee Valero-C Unavailable +[phone] Carlos Joyner MD Unavailable [phone] Encounter Details Date Type Department Care Team [...] than three times a week 07/16/2024 Attends Temple Services Not on file 07/16 Active Member [...] Description 03/03/2025 9:00 AM CDT Office Visit [facility] Physical Medicine and Rehabilitation Clinic [address] [phone] Jadon Floyd MD [address] [place] [address] 865155 03/23/2025 12:45 PM CDT Appointment [facility] [address] [place] [address] Cayden [place]jar[place] [address] [place] [address] 03/23/2025 1:30 PM CDT Hospital Encounter [facility] [address] [place] [address] [place] [address] [place] [address] 03/25/2025 10:20 AM CDT Virtual Visit [facility] Sports Medicine [facility] [place] [address] [place], [place] [address] [place] [address] Cayden [place]jarano [place] [address] [place] [address] 04/04/2025 12:00 PM COMPLIANCE REVIEWER Office Visit [facility] [place] [address] [place] [phone] Darius [place] Elder, [facility] [address] [place], [place] [address]E [address] [place] [address] 05/30/2025 10:20 AM COMPLIANCE REVIEWER Appointment [facility] [address] [facility] [employer] [address] [place] [address] Carlos Joyner MD [address] [place] [address] [id number] 05/31/2025 2:00 PM COMPLIANCE REVIEWER Virtual Visit [facility] Urology Clinic [address] 4th [place] [phone] Carlos Joyner MD [address] [place] [address] 282025 07/25/2025 11:00 AM COMPLIANCE REVIEWER Office Visit [facility] [address] [place] [address] [place] [address] [place] [address] documented as of this encounter Visit Diagnoses Not on filedocumented in this encounter Care Teams Sole Ruffer Relationship Specialty Start Date End [place] [id number] [place] [address] PCP - General 03/05/23 Carlos Joyner MD [address] [place] [address] 347475 Urology 12/09/19 Jadon Murray MD [facility] 2530 [facility] 550 [place] [address] Referring Physician Pediatric Surgery 12/09/19 Maru Villagomez, RN Registered Nurse 12/10/19 Ang Slade MD 420 [facility] 394 [place], [place] 383205 Urology 04/24/20 Carlos Joyner MD [address] [place] [address] 552325 Assigned Surgical Provider 12/24/20 Ang Slade MD [address] [place] [address] 394 [place], [place] 661385 Urology 12/18/22 Lakshmi Wilhelm PA-C [address] [place] [address] 574545 Physician Ram Car Operator Urology 02/03/23 [place] [address] [place] [address] Assigned PCP 02/06/23 Alissa Perez PA-C [address] [place] [address] 515375 Physician Ram Car Operator Surgery 09/04/23 Lakshmi Wilhelm PA-C [address] [place] [address] 230095 Physician Ram Car Operator Urology 09/16/23 Aidee Valero PA-C 909 [place] [address] Assigned Musculoskeletal Provider 04/17/24 02/14/25 Carlos Joyner MD 9 [place], [place] 457435 Urology 01/26/25 Tanisha Marlow 4120 [facility] [address] 03/30/24 documented as of this encounter
--- OUTSIDE RECORDS SUMMARY | 2025-02-27 01:58 | XMS_ITS | Encounter Summary ---
Author Organization [place] Address [address] [place] [address] 95[address] Care Team Providers Care Youth Services Specialist Name Role Phone Carlos Joyner MD Unavailable [phone] Jadon Murray MD Unavailable [phone] Maru Villagomez RN Unavailable Unavailable Ang Slade MD Unavailable +[phone] Carlos Joyner MD Unavailable +[phone] Ang Slade MD Unavailable [phone] Lakshmi Wilhelm-C Unavailable +[phone] Heladio Willoughby MD Primary Care Provider [phone] Heladio Willoughby MD Unavailable Alissa Perez PA-C Unavailable [phone] Lakshmi Wilhelm PA-C Unavailable +[phone] Aidee Valero PA-C Unavailable +[phone] Carlos Joyner MD Unavailable +[phone] Jadon Floyd MD Unavailable [phone] Cayden Bejarano MD Unavailable Encounter Details Date Type Department Care Team (Late st Contact Info) Description 01/12/2025 Results Follow-Up [facility] [address] [place] [address] Sugey Mccoy, FILLING AND STAPLING MACHINE OPERATOR APPLIER [address] [place] [address] Subj: Sleep study results Social History Tobacco [...] Medical Center Physical Medicine and Rehabilitation Clinic [address] [phone] Jadon Floyd MD [address] [place] [address] 611645 03/23/2025 12:45 PM CDT Appointment [facility] [address] [place] [address] Cayden Bejarano MD [address] [place] [address] [address] [place] [address] 03/23/2025 1:30 PM CDT Hospital Encounter [facility] [address] [place] [address] [place] [address] [place] [address] 03/25/2025 10:20 AM CDT Virtual Visit [facility] Sports Medicine [facility] [place] [address] [facility] [address] [place] [address] [place] [address] [place] [address] 04/04/2025 12:00 PM DRIER OPERATOR HELPER Office Visit [facility] Sleep [facility] [address] [place] [address] Sugey Mccoy APRN [facility] [address] [place] [address] [address] [place], [place] 232974 05/30/2025 10:20 AM DRIER OPERATOR HELPER Appointment [facility] [address] [facility] [address] [place] [address] Carlos Joyner MD [address] [place] [address] 849555 05/31/2025 2:00 PM DRIER OPERATOR HELPER Virtual Visit [facility] Urology Clinic [address] 4th [place] [address] Carlos Joyner MD [address] [place] [address] 604425 07/25/2025 11:00 AM DRIER OPERATOR HELPER Office Visit [facility] [address] [place] [address] [place] [address] [place] [address] documented as of this encounter Visit Diagnoses Not on filedocumented in this encounter Care Teams Youth Services Specialist Relationship Specialty Start [place] [address] [place] [address] PCP - General 03/05/23 Carlos Joyner MD [address] [place] [address] Urology 12/09/19 Jadon Murray MD [facility] [address] [phone] Referring Physician Pediatric Surgery 12/09/19 Maru Villagomez, RN Registered Nurse 12/10/19 Ang Slade MD [address] [place] [address] 615035 Urology 04/24/20 Carlos Joyner MD [address] [place] [address] 778365 Assigned Surgical Provider 12/24/20 Ang Slade MD [address] [place] [address] 640975 Urology 12/18/22 Lakshmi Wilhelm PA-C [address] [place] [address] 230455 Physician Grievance Manager Urology 02/03/23 [place] [address] [place] [address] Assigned PCP 02/06/23 Alissa Perez PA-C [address] [place] [address]78 Physician Grievance Manager Surgery 09/04/23 Lakshmi Wilhelm PA-C [address] [place] [address] 73143 Physician Grievance Manager Urology 09/16/23 Aidee Valero PA-C [address] [place] [address]87 Assigned Musculoskeletal Provider 04/17/24 02/14/25 Carlos Joyner MD [address] [place] [address]49 Urology 01/26/25 Jadon Floyd MD [address] [place] [address]8488 Physician Physical Medicine and Rehabilitation 01/31/25 [place] [address] [place] [address] Assigned Musculoskeletal Provider 02/15/25 Tanisha Marlow 4120 [facility] [address] 03/30/24 documented as of this encounter
--- OUTSIDE RECORDS SUMMARY | 2025-02-27 01:58 | XMS_ITS | Encounter Summary ---
Author Organization [facility] Address [address] [place] [address] Care Team Providers Care Management Lead Name Role Phone Carlos Joyner MD Unavailable [phone] Jadon Murray MD Unavailable [phone] Maru Villagomez RN Unavailable Unavailable Ang Slade MD Unavailable [phone] Carlos Joyner MD Unavailable [phone] Ang Slade MD Unavailable [phone] Lakshmi Wilhelm-C Unavailable [phone] Heladio Willoughby MD Primary Care Provider [phone] Heladio Willoughby MD Unavailable Alissa Perez PA-C Unavailable [phone] Lakshmi Wilhelm-C Unavailable [phone] Aidee Valero PA-C Unavailable [phone] Reason for Visit * Reason Onset Date Comments Pre Visit Planning - Done 01/25/2025 Encounter Details Date Type Department Care Team (Late st Contact Info) Description 01/25/2025 PRE VISIT [facility] Urology Clinic [address] 4th [place] [address] Rosita Velasco RN Pre Visit [...] Answer Date Recorded PHQ-2 Score 0 09/13/2024 [facility] [place] of Occupat ional Health - Occupational Stress [...] Center Physical Medicine and Rehabilitation Clinic [address] [phone] Jadon Floyd MD [address] [place] [address] 319375 03/23/2025 12:45 PM CDT Appointment [facility] [address] [facility] [address] [place] [address] [place] [address] [place] [address] 03/23/2025 1:30 PM CDT Hospital Encounter [facility] [address] [facility] [address] [place] [address] [place]den [place]jar[place] [address] [place] [address] [address] [place] [address] 03/25/2025 10:20 AM CDT Virtual Visit [facility] Sports Medicine [facility] [place] [address] [place] [address] [place] [address] [place] [address] 04/04/2025 12:00 PM TABLE WORKER PACKAGER Office Visit [facility] Sleep [address] [phone] Sugey Mccoy, BIRD RAISER [address] 658004 05/30/2025 10:20 AM TABLE WORKER PACKAGER Appointment [facility] [address] [facility] [address] [place] [address] Carlos Joyner MD [address] [place] [address] 05/31/2025 2:00 PM TABLE WORKER PACKAGER Virtual Visit [facility] Urology [address] 4th [place] [address] Carlos Joyner MD [address] [place] [address] 07/25/2025 11:00 AM TABLE WORKER PACKAGER Office Visit [address] [phone] [place] [address] [address] [place] [phone] documented as of this encounter Visit Diagnoses Not on filedocumented in this encounter Care Teams Management Lead Relationship Specialty [place] [address] [address] [place] [id number] PCP - General 03/05/23 Carlos Joyner MD [address] [place] [address] 468445 Urology 12/09/19 Jadon Murray MD [facility] [address] [address] Referring Physician Pediatric Surgery 12/09/19 Maru Villagomez, RN Registered Nurse 12/10/19 Ang Slade MD [address] [place] [address]291 Urology 04/24/20 Carlos Joyner MD [address] [place] [address] 65394 Assigned Surgical Provider 12/24/20 Ang Slade MD [address] [place] [address] 14338 Urology 12/18/22 Lakshmi Wilhelm PA-C [address] [place] [address] 67743 Physician Legal Support Assistant Urology 02/03/23 [place] [address] [place] [address] Assigned PCP 02/06/23 Alissa Perez PA-C [address] [place] [address] 836085 Physician Legal Support Assistant Surgery 09/04/23 Lakshmi Wilhelm PA-C [address] [place] [address] 230175 Physician Legal Support Assistant Urology 09/16/23 Aidee Valero PA-C [address] [place] [address] [phone] Assigned Musculoskeletal Provider 04/17/24 02/14/25 Tanisha Marlow 4120 [facility] [address] 03/30/24 documented as of this encounter
--- OUTSIDE RECORDS SUMMARY | 2025-02-27 01:59 | XMS_ITS | Encounter Summary ---
Author Organization [place] Address [address] [place] [address] 15224 Care Team Providers Care Access Service Representative Name Role Phone Carlos Joyner MD Unavailable [phone] Jadon Murray MD Unavailable [phone] Maru Villagomez RN Unavailable Unavailable Ang Slade MD Unavailable [phone] Carlos Joyner MD Unavailable +[phone] Ang Salde MD Unavailable [phone] Lakshmi Wilhelm-C Unavailable +[phone] Heladio Willoughby MD Primary Care Provider [phone] Heladio Willoughby MD Unavailable Alissa Perez PA-C Unavailable [phone] Lakshmi Wilhelm-C Unavailable +[phone] Aidee Valero PA-C Unavailable +[phone] Carlos Joyner MD Unavailable [phone] Encounter Details Date Type Department Care Team (Late st Contact Info) Description 01/28/2025 [facility] Physical Medicine and Rehabilitation Clinic [address] 3rd [place] [address] Unknown, Doctor, Social History Tobacco [...] than three times a week 07/16/2024 Attends Christianity Services Not on file 07/16 Active Member of Clubs or Organizations Not on f ile 07/16/2024 Attends Club or Organization Meetings Not on antelmo e 07/16/2024 Marital Status Not on file 07/16/2024 PHQ-2 Answer Date Recorded PHQ-2 Score 0 09/13/2024 [facility] [place] of Occupat ional Health - Occupational Stress [...] Return date: next available Specialty phone number: [phone] Additional appointment(s) needed: NA Additonal Notes: documented in this encounter Plan of Treatment Upcoming Encounters Date Type Department Care Team (Late st Contact Info) Description 03/03/2025 9:00 AM CDT Office Visit [facility] Physical Medicine and Rehabilitation Clinic [address] [address] Jadon Floyd MD [address] [place] [address] [phone] 03/23/2025 12:[address] [facility] [place] [facility] [address] [facility] [address] [place] [address] [place] [address] [place] [address] 03/23/2025 1:30 PM CDT Hospital Encounter [facility] [address] [facility] [address] [place] [address] [place] [address] [place] [address] 03/25/2025 10:20 AM CDT Virtual Visit [facility] Sports Medicine [facility] [address] [place] [address] [place] [address] [place] [address] 04/04/2025 12:00 PM E COMMERCE STRATEGIST Office Visit [facility] Sleep [address] [phone] Sugey Mccoy, FOUNTAIN SERVER [address] [place] [address] 05/30/2025 10:20 AM E COMMERCE STRATEGIST Appointment [facility] [address] [facility] [address] [place] [address]25[address] Carlos Joyner MD [address] [place] [address] 05/31/2025 2:00 PM E COMMERCE STRATEGIST Virtual Visit [facility] Urology [address] 4th [place] [address] Carlos Joyner MD [address] [place] [address] 07/25/2025 11:00 AM E COMMERCE STRATEGIST Office Visit [address] [address] [place] [address] [place] [address] documented as of this encounter Visit Diagnoses Not on filedocumented in this encounter Care Teams Access Service Representative Relationship Specialty Start [place] [address] [address] [place] [phone] PCP - General 03/05/23 Carlos Joyner MD [address] [place] [address] 031825 Urology 12/09/19 Jadon Murray MD [facility] [address] [phone] Referring Physician Pediatric Surgery 12/09/19 Maru Villagomez, RN Registered Nurse 12/10/19 Ang Slade MD [address] [place] [address] 865925 Urology 04/24/20 Carlos Joyner MD [address] [place] [address] 347835 Assigned Surgical Provider 12/24/20 Ang Slade MD [address] [place] [address]58 Urology 12/18/22 Lakshmi Wilhelm PA-C [address] [place] [address] 561585 Physician Sales And Service Change Leader Urology 02/03/23 [place] [address] [place] [address] Assigned PCP 02/06/23 Alissa Perez PA-C [address] [place] [address] 198915 Physician Sales And Service Change Leader Surgery 09/04/23 Lakshmi Wilhelm PA-C [address] [place] [address] 844785 Physician Sales And Service Change Leader Urology 09/16/23 Aidee Valero PA-C [address] [place] [address] 765385 Assigned Musculoskeletal Provider 04/17/24 02/14/25 Carlos Joyner MD [address] [place] [address] 270085 Urology 01/26/25 Tanisha Marlow 4120 [facility] [address] 03/30/24 documented as of this encounter
--- OUTSIDE RECORDS SUMMARY | 2025-02-27 01:59 | XMS_ITS | Encounter Summary ---
Author Organization [place] Address [address] [place] [address] Care Team Providers Care Instrument Engineer Name Role Phone Carlos Joyner MD Unavailable [phone] Jadon Murray MD Unavailable [phone] Maru Villagomez RN Unavailable Unavailable Ang Slade MD Unavailable +[phone] Carlos Joyner MD Unavailable +[phone] Ang Slade MD Unavailable [phone] Lakshmi Wilhelm-C Unavailable +[phone] Heladio Willoughby MD Primary Care Provider [phone] Heladio Willoughby MD Unavailable Alissa Perez PA-C Unavailable [phone] Lakshmi Wilhelm-C Unavailable [phone] Aidee Valero PA-C Unavailable +[phone] Carlos Joyner MD Unavailable +[phone] Jadon Floyd MD Unavailable [phone] Cayden Bejarano MD Unavailable Encounter Details Date Type Department Care Team (Late st Contact Info) Description 05/05/2023 [facility] Medical [facility] Urology Clinic [place] [id number] [facility] 4th [place] [address] Rosita Velasco, RN Social History [...] Description 03/03/2025 9:00 AM CDT Office Visit [facility] Physical Medicine and Rehabilitation Clinic [address] [address] Jadon Floyd MD [address] [place] [address] 486745 03/23/2025 12:45 PM CDT Appointment [facility] Imaging [address] [facility] [address] [place] [address] [place] [address] [place] [address] 03/23/2025 1:30 PM CDT Hospital Encounter [facility] [address] [facility] [address] [place] [address] Cayden [place]jarano [place] [phone] [place] [address] [address] [place] [address] 03/25/2025 10:20 AM CDT Virtual Visit [facility] Sports Medicine [facility] [address] [place] [address] [address] [place] [address] [place] [address] [place] [address] 04/04/2025 12:00 PM MACHINE SPECIALIST Office Visit [facility] Sleep [address] [phone] Sugey Mccoy, NESTOR [address] [address] 05/30/2025 10:20 AM MACHINE SPECIALIST Appointment [facility] Imaging [address] [facility] [address] [place] [address] Carlos Joyner MD [address] [place] [address] 976385 05/31/2025 2:00 PM MACHINE SPECIALIST Virtual Visit [facility] Urology Clinic [address] 4th [place] [address] Carlos Joyner MD [address] [place] [address] 07/25/2025 11:00 AM MACHINE SPECIALIST Office Visit [facility] [place] [address] [address] [phone] [place] [address] [address] [phone] documented as of this encounter Visit Diagnoses Not on filedocumented in this encounter Care Teams Instrument Engineer Relationship Specialty Start [place] [address] [address] [phone] PCP - General 03/05/23 Carlos Joyner MD [address] [place] [address] 15804 Urology 12/09/19 Jadon Murray MD [facility] [address] [facility] 550 [place] [address] Referring Physician Pediatric Surgery 12/09/19 Maru Villagomez, RN Registered Nurse 12/10/19 Ang Slade MD [address] [place] [address] Urology 04/24/20 Carlos Joyner MD [address] [place] [address] 84659 Assigned Surgical Provider 12/24/20 Ang Slade MD [address] [place] [address] 63853 Urology 12/18/22 Lakshmi Wilhelm PA-C [address] [place] [address] 44622 Physician Chicken And Fish Butcher Urology 02/03/23 [place] [address] [place] [address] Assigned PCP 02/06/23 Alissa Perez PA-C [address] [place] [address] 90309 Physician Chicken And Fish Butcher Surgery 09/04/23 Lakshmi Wilhelm PA-C [address] [place] [address] 60172 Physician Chicken And Fish Butcher Urology 09/16/23 Aidee Valero PA-C [address] [place] [address] 636135 Assigned Musculoskeletal Provider 04/17/24 02/14/25 Carlos Joyner MD [address] [place] [address] 186105 Urology 01/26/25 Jadon Floyd MD [address] [place] [address] Physician Physical Medicine and Rehabilitation 01/31/25 [place] [address] [place] [address] Assigned Musculoskeletal Provider 02/15/25 Tanisha Marlow [facility] [address] 03/30/24 documented as of this encounter
--- OUTSIDE RECORDS SUMMARY | 2025-02-27 01:59 | XMS_ITS | Encounter Summary ---
Author Organization [facility] Address [address] [place] [address] Care Team Providers Care Tractor Operator Name Role Phone Carlos Joyner MD Unavailable [phone] Jadon Murray MD Unavailable [phone] Maru Villagomez RN Unavailable Unavailable Ignacia Duran MD Primary Care Provider [phone] Ang Slade MD Unavailable +[phone] Carlos Joyner MD Unavailable +[phone] Annalise Orta PA-C Unavailable +[phone] Ang Slade MD Unavailable +[phone] Lakshmi Wilhelm-C Unavailable +[phone] Heladio Willoughby MD Primary Care Provider [phone] Heladio Willoughby MD Unavailable Alissa Perez PA-C Unavailable [phone] LaLakshmi morales-C Unavailable +[phone] Aidee Valero PA-C Unavailable +[phone] Carlos Joyner MD Unavailable +[phone] Jadon Floyd MD Unavailable [phone] Cayden Bejarano MD Unavailable Encounter Details Date Type Department Care Team (Late st Contact Info) Description 09/17/2021 MyC Medical Advice [facility] [address] 4th [place] [phone] Carlos Joyner MD [address] [place] [address] 91707 Social History Tobacco Use Types Packs/Day Years [...] [facility] [address] 3rd [place] [address] Jadon Floyd MD [address] [place] [address] 03/23/2025 12:45 PM CDT Appointment [facility] [address] [facility] [address] [place] [address] Cayden Bejarano MD [address] [place] [address] [address] [place] [address] 03/23/2025 1:30 PM CDT Hospital Encounter [facility] [address] [place] [phone] Cayden Bejarano MD [address] [place] [address] [address] [place] [address] 03/25/2025 10:20 AM CDT Virtual Visit [facility] [place] [address] [facility] [address] [place] [address] Cayden Bejarano MD [address] [place] [address] [address] [place] [address] 04/04/2025 12:00 PM CORRECTIONAL NURSE Office Visit [facility] [place] [address] [facility] [place] [phone] Sugey Mccoy APRN [facility] [address] [place] [address] [address] [place], [place] 154174 05/30/2025 10:20 AM CORRECTIONAL NURSE Appointment [facility] [address] [facility] [address] [place] [phone] Carlos Joyner MD [address] [place] [address] 006235 05/31/2025 2:00 PM CORRECTIONAL NURSE Virtual Visit [facility] [address] 4th [place] [phone] Carlos Joyner MD [address] [place] [address] 731055 07/25/2025 11:00 AM CORRECTIONAL NURSE Office Visit [address] [address] [place] [address] [place] [address] documented as of this encounter Visit Diagnoses Not on filedocumented in this encounter Additional Health Concerns Infection Onset Date Last Indicated Resolved Time MRSA Comment:Added from external infection. Pt has had Staph infections but never MRSA from Care everywhere chart review. Removing MRSA 02.06.23 06/17/2019 02/06/2023 9:41 AM C DT documented as of this encounter Care Teams Tractor Operator Relationship Specialty Start Date End Date Ignacia Duran MD PCP - General Pediatrics 01/20/20 03/04/23 [place] [address] [place] [address] PCP - General 03/05/23 Carlos Joyner MD [address] [place] [address] [phone] Urology 12/09/19 Jadon Murray MD [facility] [address] [facility] [address] [place] [address] Referring Physician Pediatric Surgery 12/09/19 Maru Villagomez, RN Registered Nurse 12/10/19 Ang Slade MD 420 [facility] 394 [place], [place] 551645 Urology 04/24/20 Carlos Joyner MD [address] [place] [address] 697875 Assigned Surgical Provider 12/24/20 Annalise Orta PA-C 5200 [place] [address] Assigned Cancer Care Provider 05/13/21 11/01/22 Ang Slade MD [address] [place] [address] 531365 Urology 12/18/22 Lakshmi Wilhelm PA-C [address] [place] [address]36 Physician Java Golden Gate Developer Urology 02/03/23 [place] [address] [place] [address] Assigned PCP 02/06/23 Alissa Perez PA-C [address] [place] [address] 295925 Physician Java Golden Gate Developer Surgery 09/04/23 Lakshmi Wilhelm PA-C [address] [place] [address] 598895 Physician Java Golden Gate Developer Urology 09/16/23 Aidee Valero PA-C [address] [place] [address] 789[address] Assigned Musculoskeletal Provider 04/17/24 02/14/25 Carlos Joyner MD [address] [place] [address] 065795 Urology 01/26/25 Jadon Floyd MD [address] [place] [address] 54596 Physician Physical Medicine and Rehabilitation 01/31/25 [place] [address] [place] [address] Assigned Musculoskeletal Provider 02/15/25 Tanisha Marlow 4120 [facility] [place] [address] 03/30/24 documented as of this encounter
--- OUTSIDE RECORDS SUMMARY | 2025-02-27 01:59 | XMS_ITS | Encounter Summary ---
Author Organization [place] Address [address] [place] [address] Care Team Providers Care Dairy Consultant Name Role Phone Carlos Joyner MD Unavailable [phone] Jadon Murray MD Unavailable [phone] Maru Villagomez RN Unavailable Unavailable Ang Slade MD Unavailable [phone] Carlos Joyner MD Unavailable [phone] Ang Slade MD Unavailable [phone] Lakshmi Wilhelm-C Unavailable [phone] Heladio Willoughby MD Primary Care Provider [phone] Heladio Willoughby MD Unavailable Alissa Perez PA-C Unavailable [phone] Lakshmi Wilhelm-C Unavailable [phone] Aidee Valero PA-C Unavailable [phone] Carlos Joyner MD Unavailable +[phone] Jadon Floyd MD Unavailable [phone] Cayden Bejarano MD Unavailable Encounter Details Date Type Department Care Team (Late st Contact Info) Description 06/25/2023 [facility] [place] [id number] [facility] 4th [place] [address] Carlos Joyner MD [address] [place] [address] [phone] Social History Tobacco Use Types Packs/Day Years [...] Description 03/03/2025 9:00 AM CDT Office Visit [facility] [address] 3rd [place] [address] Jadon Floyd MD [address] [place] [address] 03/23/2025 12:45 PM CDT Appointment [facility] [address] [facility] [address] [place] [address] [place] [address] [place] [address] 03/23/2025 1:30 PM CDT Hospital Encounter [facility] [address] [facility] [address] [place] [address] [place] [address] [place] [address] 03/25/2025 10:20 AM CDT Virtual Visit [facility] [address] [place] [address] [address] [place] [address] [place] [address] [place] [address] 04/04/2025 12:00 PM BAG WASHER Office Visit [facility] [address] [place] [phone] Sugey Mccoy, ENTRY LEVEL SOFTWARE ENGINEER [address] [address] 05/30/2025 10:20 AM BAG WASHER Appointment [facility] [address] [facility] [address] [place] [address] Carlos Joyner MD [address] [place] [address] 951175 05/31/2025 2:00 PM BAG WASHER Virtual Visit [facility] [address] 4th [place] [address] Carlos Joyner MD 909 [place] [address] 07/25/2025 11:00 AM BAG WASHER Office Visit [facility] [address] [place] [address] [place] [address] [place], [place] [phone] documented as of this encounter Visit Diagnoses Not on filedocumented in this encounter Care Teams Dairy Consultant Relationship Specialty Start [place] [address] [address] [place], [place] [phone] PCP - General 03/05/23 Carlos Joyner MD [address] [place] [address]78 Urology 12/09/19 Jadon Murray MD [facility] [address] [address] Referring Physician Pediatric Surgery 12/09/19 Maru Villagomez, OTILIO Registered Nurse 12/10/19 Ang Slade MD [address] [place] [address] 36082 Urology 04/24/20 Carlos Joyner MD [address] [place] [address] 10260 Assigned Surgical Provider 12/24/20 Ang Slade MD [address] [place] [address] 76649 Urology 12/18/22 Lakshmi Wilhelm PA-C [address] [place] [address] 52508 Physician Rehabilitation Team Lead Urology 02/03/23 [place] [address] [place] [address] Assigned PCP 02/06/23 Alissa Perez PA-C [address] [place] [address] 83079 Physician Rehabilitation Team Lead Surgery 09/04/23 Lakshmi Wilhelm PA-C [address] [place] [address] 22671 Physician Rehabilitation Team Lead Urology 09/16/23 Aidee Valero PA-C [address] [place] [address] 03598 Assigned Musculoskeletal Provider 04/17/24 02/14/25 Carlos Joyner MD [address] [place] [address] 48215 Urology 01/26/25 Jadon Floyd MD [address] [place] [address] 683045 Physician Physical Medicine and Rehabilitation 01/31/25 [place] [address] [place] [address] Assigned Musculoskeletal Provider 02/15/25 Tanisha Marlow 4120 [facility] [address] 03/30/24 documented as of this encounter
--- OUTSIDE RECORDS SUMMARY | 2025-02-27 01:59 | XMS_ITS | Encounter Summary ---
Author Organization [facility] Address [address] [place] [address] Care Team Providers Care Family Educator Name Role Phone Carlos Joyner MD Unavailable [phone] Jadon Murray MD Unavailable [phone] Maru Villagomez RN Unavailable Unavailable Ignacia Duran MD Primary Care Provider [phone] Ang Slade MD Unavailable [phone] Carlos Joyner MD Unavailable +[phone] Annalise Orta PA-C Unavailable +[phone] Ang Slade MD Unavailable [phone] Lakshmi Wilhelm-C Unavailable [phone] Heladio Willoughby MD Primary Care Provider [phone] Heladio Willoughby MD Unavailable Alissa Perez PA-C Unavailable [phone] LaLakshmi morales-C Unavailable [phone] Aidee Valero PA-C Unavailable [phone] Carlos Joyner MD Unavailable +[phone] Jadon Floyd MD Unavailable [phone] Cayden Bejarano MD Unavailable Encounter Details Date Type Department Care Team (Late st Contact Info) Description 06/19/2021 MyC Medical Advice [facility] [address] 4[address] [place] [address] Jenna Mcfadden RN Social History Tobacco Use [...] COVID-19? No / Unsure 06/19/2021 11:16 AM OTA documented as of this encounter Plan of Treatment Upcoming Encounters Date Type Department Care Team ([facility] Contact Info) Description 03/03/2025 9:00 AM CDT Office Visit [facility] [address] 3rd [place] [phone] Jdaon Floyd MD [address] [place] [address] 03/23/2025 12:45 PM CDT Appointment [facility] [address] [place] [address] [place] [phone] [place] [address] [place] [address] 03/23/2025 1:30 PM CDT Hospital Encounter [facility] [address] [facility] [address] [place] [address] [place] [address] [facility] [address] [place] [address] 03/25/2025 10:20 AM CDT Virtual Visit [facility] [place] [address] [place] [address] [address] [place] [address] [place] [address] [place] [address] 04/04/2025 12:00 PM OTA Office Visit [facility] [place] [address] [place] [address] Sugey Mccoy, [facility] [address] [address] [place] [address] 05/30/2025 10:20 AM OTA Appointment [facility] [address] [facility] [address] [place] [address] Carlos Joyner MD [address] [place] [address] 398215 05/31/2025 2:00 PM OTA Virtual Visit [facility] [place] 909 [facility] 4th [place] [phone] Carlos Joyner MD [address] [place] [address] 677445 07/25/2025 11:00 AM OTA Office Visit [facility] [address] [place] [address] [place] [address] [place] [address] documented as of this encounter Visit Diagnoses Not on filedocumented in this encounter Additional Health Concerns Infection Onset Date Last Indicated Resolved Time MRSA Comment:Added from external infection. Pt has had Staph infections but never MRSA from Care everywhere chart review. Removing MRSA 9.14.23 06/17/2019 02/06/2023 9:41 AM C DT documented as of this encounter Care Teams Family Educator Relationship Specialty Start Date End Date Ignacia Duran MD PCP - General Pediatrics 01/20/20 03/04/23 [place] [address] [facility] [address] PCP - General 03/05/23 Carlos Joyner MD [address] [place] [address] Urology 12/09/19 Jadon Murray MD [facility] 2530 [facility] 550 [place] [address] Referring Physician Pediatric Surgery 12/09/19 Maru Villagomez, RN Registered Nurse 12/10/19 Ang Slade MD [address] 259425 Urology 04/24/20 Carlos Joyner MD [address] [place] [address] 141925 Assigned Surgical Provider 12/24/20 Annalise Orta PA-C 5200 [place] [address] Assigned Cancer Care Provider 05/13/21 11/01/22 Ang Slade MD [address] [address] Urology 12/18/22 Lakshmi Wilhelm PA-C [address] [place] [address] Physician Visually Impaired Teacher Urology 02/03/23 [place] [address] [place] [address] Assigned PCP 02/06/23 Alissa Perez PA-C [address] [place] [address] Physician Visually Impaired Teacher Surgery 09/04/23 Lakshmi Wilhelm PA-C [address] [place] [address] Physician Visually Impaired Teacher Urology 09/16/23 Aidee Valero PA-C [address] [place] [address] Assigned Musculoskeletal Provider 04/17/24 02/14/25 Carlos Joyner MD [address] [place] [address] Urology 01/26/25 Jadon Floyd MD [address] [place] [address] 56587 Physician Physical Medicine and Rehabilitation 01/31/25 [place] [address] [place] [address] Assigned Musculoskeletal Provider 02/15/25 Tanisha Marlow 4120 [facility] [address] 03/30/24 documented as of this encounter
--- OUTSIDE RECORDS SUMMARY | 2025-02-27 01:59 | XMS_ITS | Encounter Summary ---
Author Organization [facility] Address [address] [place] [address] Care Team Providers Care Electronic Parts Salesperson Name Role Phone Carlos Joyner MD Unavailable [phone] Jadon Murray MD Unavailable [phone] Maru Villagomez RN Unavailable Unavailable Ignacia Duran MD Primary Care Provider [phone] Ang Slade MD Unavailable [phone] Carlos Joyner MD Unavailable + [address] Annalise Orta PA-C Unavailable +[phone] Ang Slade MD Unavailable +[phone] Lakshmi Wilhelm-C Unavailable [phone] Heladio Willoughby MD Primary Care Provider [phone] Heladio Willoughby MD Unavailable Alissa Perez PA-C Unavailable [phone] LaLakshmi morales-C Unavailable +[phone] Aidee Valero PA-C Unavailable +[phone] Carlos Joyner MD Unavailable +[phone] Jadon Floyd MD Unavailable [phone] Cayden Bejarano MD Unavailable Encounter Details Date Type Department Care Team (Late st Contact Info) Description 04/16/2021 MyC Medical Advice [facility] [address] 4th [place] [phone] Berna Britton Social History Tobacco Use Types [...] Description 03/03/2025 9:00 AM CDT Office Visit [facility] [address] 3rd [place] [phone] Jadon Floyd MD [address] [place] [address] 946335 03/23/2025 12:45 PM CDT Appointment [facility] [address] [place] [address] [place] [address] [facility] [address] [place] [address] 03/23/2025 1:30 PM CDT Hospital Encounter [facility] [address] [place] [address] Cayden Bejarano [place] [address] [place] [address] 03/25/2025 10:20 AM CDT Virtual Visit [facility] [place] [address] [place] [address] Cayden [place]jar[place] [address] [place] [address] 04/04/2025 12:00 PM CHEMICAL PLANT MANAGER Office Visit [facility] [place] [address] [place] [address] Sugey Mccoy, [facility] [address] [place] [address] [address] [place] [address] 05/30/2025 10:20 AM CHEMICAL PLANT MANAGER Appointment [facility] Imaging [address] [place] [address] Carlos Joyner MD [address] [place] [address] 885395 05/31/2025 2:00 PM CHEMICAL PLANT MANAGER Virtual Visit [facility] [address] 4th [place] [phone] Carlos Joyner MD [address] [place] [address] 07/25/2025 11:00 AM CHEMICAL PLANT MANAGER Office Visit [facility] [address] [place] [address] [place] [address] [place] [address] documented as of this encounter Visit Diagnoses Not on filedocumented in this encounter Additional Health Concerns Infection Onset Date Last Indicated Resolved Time MRSA Comment:Added from external infection. Pt has had Staph infections but never MRSA from Care everywhere chart review. Removing MRSA 02.06.23 06/17/2019 02/06/2023 9:41 AM C DT documented as of this encounter Care Teams Electronic Parts Salesperson Relationship Specialty Start Date End Date Ignacia Duran MD PCP - General Pediatrics 01/20/20 03/04/23 [place] [address] [place] [address] PCP - General 03/05/23 Carlos Joyner MD [address] [place] [address]228 Urology 12/09/19 Jadon Murray MD [facility] 2530 [facility] NANCY [address] [place] [address] 22968 Referring Physician Pediatric Surgery 12/09/19 Maru Villagomez, RN Registered Nurse 12/10/19 Ang Slade MD [address] [place] [address] 453825 Urology 04/24/20 Carlos Joyner MD [address] [place] [address] 472135 Assigned Surgical Provider 12/24/20 Annalise Orta PA-C 5200 [place] [address] Assigned Cancer Care Provider 05/13/21 11/01/22 Ang Slade MD [address] 204545 Urology 12/18/22 Lakshmi Wilhelm PA-C [address] [place] [address] 46268 Physician Equine Pharmacology Technician Urology 02/03/23 [place] [address] [place] [address] Assigned PCP 02/06/23 Alissa Perez PA-C [address] [place] [address]444 Physician Equine Pharmacology Technician Surgery 09/04/23 Lakshmi Wilhelm PA-C [address] [place] [address] 33064 Physician Equine Pharmacology Technician Urology 09/16/23 Aidee Valero PA-C [address] [place] [address]109 Assigned Musculoskeletal Provider 04/17/24 02/14/25 Carlos Joyner MD [address] [place] [address] 549[address] Urology 01/26/25 Jadon Floyd MD [address] [place] [address]100 Physician Physical Medicine and Rehabilitation 01/31/25 [place] [address] [place] [address] Assigned Musculoskeletal Provider 02/15/25 Tanisha Marlow 4120 [facility] [address] 03/30/24 documented as of this encounter
--- OUTSIDE RECORDS SUMMARY | 2025-02-27 01:59 | XMS_ITS | Encounter Summary ---
Author Organization [facility] Address [address] [place] [address] Care Team Providers Care Scale And Skip Car Operator Name Role Phone Carlos Joyner MD Unavailable [phone] Jadon Murray MD Unavailable +[phone] Maru Villagomez RN Unavailable Unavailable Ang Slade MD Unavailable +[phone] Carlos Joyner MD Unavailable +[phone] Ang Slade MD Unavailable +[phone] Lakshmi WilhelmC Unavailable +[phone] Heladio Willoughby MD Primary Care Provider +[phone] Heladio Willoughby MD Unavailable Alissa Perez PA-C Unavailable [phone] Lakshmi Wilhelm PA-C Unavailable +[phone] Aidee Valero-C Unavailable +[phone] Carlos Joyner MD Unavailable +[phone] Encounter Details Date Type Department Care Team [...] [facility] [address] [phone] Jadon Floyd MD [address] [place] [address] [id number] 03/23/2025 12:45 PM CDT Appointment [facility] [address] [place] [address] [place] [address] [place] [address] 03/23/2025 1:30 PM CDT Hospital Encounter [facility] [address] [place] [address] [place] [address] [place] [address] 03/25/2025 10:20 AM CDT Virtual Visit [facility] [place] [address] [place], [place] [address] [place] [address] Cayden [place]jar[place] [address] [place] [address] 04/04/2025 12:00 PM STAVE LOG CUT OFF SAW OPERATOR Office Visit [facility] [place] [address] [place] [phone] Darius Elvirginia Elder, [facility] [address] [place], [place] [address]E [address] [place] [address] 05/30/2025 10:20 AM STAVE LOG CUT OFF SAW OPERATOR Appointment [facility] [address] [facility] [address] [place] [address] Carlos Joyner MD [address] [place] [address] [id number] 05/31/2025 2:00 PM STAVE LOG CUT OFF SAW OPERATOR [facility] Visit [facility] [address] 4th [place] [phone] Carlos Joyner MD [address] [place] [address] 915855 07/25/2025 11:00 AM STAVE LOG CUT OFF SAW OPERATOR Office [facility] [address] [place] [address] [place] [address] [place] [address] documented as of this encounter Visit Diagnoses Not on filedocumented in this encounter Care Teams Scale And Skip Car Operator Relationship Specialty Start Date End [place] [address] [place] [address] PCP - General 03/05/23 Carlos Joyner MD [address] [place] [address] 547235 Urology 12/09/19 Jadon Murray MD [facility] 2530 [facility] 550 [place] [address] Referring Physician Pediatric Surgery 12/09/19 Maru Villagomez, RN Registered Nurse 12/10/19 Ang Slade MD 420 [facility] 394 [place], [place] 767615 Urology 04/24/20 Carlos Joyner MD [address] [place] [address] 267745 Assigned Surgical Provider 12/24/20 Ang Slade MD [address] [place] [address] 394 [place], [place] 309055 Urology 12/18/22 Lakshmi Wilhelm PA-C [address] [place] [address] 588715 Physician Director Security Management Urology 02/03/23 [place] [address] [place] [address] Assigned PCP 02/06/23 Alissa Perez PA-C [address] [place] [address] 389225 Physician Director Security Management Surgery 09/04/23 Lakshmi Wilhelm PA-C [address] [place] [address] 796445 Physician Director Security Management Urology 09/16/23 Aidee Valero PA-C 909 [place] [address] Assigned Musculoskeletal Provider 04/17/24 02/14/25 Carlos Joyner MD 9 [place], [place] 045175 Urology 01/26/25 Tanisha Marlow 4120 [facility] [address] 03/30/24 documented as of this encounter
--- OUTSIDE RECORDS SUMMARY | 2025-02-27 01:59 | XMS_ITS | Encounter Summary ---
Author Organization [place] Address [address] [place] [address] Care Team Providers Care Customer Retention Representative Name Role Phone Carlos Joyner MD Unavailable + [phone] Jadon Murray MD Unavailable +[phone] Maru Villagomez RN Unavailable Unavailable Ang Slade MD Unavailable +[phone] Carlos Joyner MD Unavailable + [phone] Ang Slade MD Unavailable +[phone] Lakshmi Wilhelm-C Unavailable +[phone] Heladio Willoughby MD Primary Care Provider +[phone] Heladio Willoughby MD Unavailable Alissa Perez PA-C Unavailable [phone] Lakshmi Wilhelm-C Unavailable +[phone] Aidee Valero PA-C Unavailable +[phone] Carlos Joyner MD Unavailable + [phone] Jadon Floyd MD Unavailable +[phone] Cayden Bejarano MD Unavailable Encounter Details Date Type Department Care Team (Late st Contact Info) Description 07/01/[address] [address] Joao Arceo MA Social History [...] Description 03/03/2025 9:00 AM CDT Office Visit [facility] Physical Medicine and Rehabilitation Clinic [address] [address] Jadon Floyd MD [address] [place] [address] 693175 03/23/2025 12:45 PM CDT Appointment [facility] [address] [facility] [address] [place] [address] [place] [address] [place] [address] 03/23/2025 1:30 PM CDT Hospital Encounter [facility] [address] [facility] [address] [place] [address] Cayden [place]jar[place] [address] [place] [address] [address] [place] [address] 03/25/2025 10:20 AM CDT Virtual Visit [facility] Sports Medicine [facility] [address] [place] [address] Drive [address] [place] [address] [place] [address] [place] [address] 04/04/2025 12:00 PM BAND LEADER Office Visit [facility] Sleep [address] [phone] Sugey Mccoy APRN [address] [address] 05/30/2025 10:20 AM BAND LEADER Appointment [facility] [address] [facility] [address] [place] [address] Carlos Joyner MD [address] [place] [address] 713545 05/31/2025 2:00 PM BAND LEADER Virtual Visit [facility] Urology Clinic [address] 4th [place] [address] Carlos Joyner MD [address] [place] [address] 07/25/2025 11:00 AM BAND LEADER Office Visit [facility] [place] [address] [phone] [place] [address] [place] [phone] documented as of this encounter Visit Diagnoses Not on filedocumented in this encounter Care Teams Customer Retention Representative Relationship Specialty Start [place] [address] [address] [place] [phone] PCP - General 03/05/23 Carlos Joyner MD [address] [place] [address] Urology 12/09/19 Jadon Murray MD [facility] 2530 [facility] 550 [place] [address] Referring Physician Pediatric Surgery 12/09/19 Maru Villagomez, RN Registered Nurse 12/10/19 Ang Slade MD [address] [place] [address] Urology 04/24/20 Carlos Joyner MD [address] [place] [address] 9[address] Assigned Surgical Provider 12/24/20 Ang Slade MD [address] [place] [address] Urology 12/18/22 Lakshmi Wilhelm PA-C [address] [place] [address] 05377 Physician Manager Photo Urology 02/03/23 [place] [address] [place] [address] Assigned PCP 02/06/23 Alissa Perez PA-C [address] [place] [address]291 Physician Manager Photo Surgery 09/04/23 Lakshmi Wilhelm PA-C [address] [place] [address] Physician Manager Photo Urology 09/16/23 Aidee Valero PA-C [address] [place] [address] 966445 Assigned Musculoskeletal Provider 04/17/24 02/14/25 Carlos Joyner MD [address] [place] [address] 637285 Urology 01/26/25 Jadon Floyd MD [address] [place] [address]393 Physician Physical Medicine and Rehabilitation 01/31/25 [place] [address] [place] [place] [address] Assigned Musculoskeletal Provider 02/15/25 Tanisha Marlow 4120 [facility] [address] 03/30/24 documented as of this encounter
--- OUTSIDE RECORDS SUMMARY | 2025-02-27 01:59 | XMS_ITS | Encounter Summary ---
Author Organization [facility] Address [address] [place] [address] Care Team Providers Care Retail Analytics Manager Name Role Phone Carlos Joyner MD Unavailable + [phone] Jadon Murray MD Unavailable +[phone] Maru Villagomez RN Unavailable Unavailable Ignacia Duran MD Primary Care Provider +[phone] Ang Slade MD Unavailable +[phone] Carlos Joyner MD Unavailable +[phone] Annalise Orta PA-C Unavailable +[phone] Ang Slade MD Unavailable +[phone] Lakshmi Wilhelm-C Unavailable +[phone] Heladio Willoughby MD Primary Care Provider +[phone] Heladio Willoughby MD Unavailable Alissa Perez PA-C Unavailable [phone] LaLakshmi morales-C Unavailable +[phone] Aidee Valero PA-C Unavailable +[phone] Carlos Joyner MD Unavailable +[phone] Jadon Floyd MD Unavailable [phone] Cayden Bejarano MD Unavailable Encounter Details Date Type Department Care Team (Late st Contact Info) Description 07/19/2021 MyC Medical Advice [facility]opedic [facility] [address] 4th [place] [phone] Shyann Rehman Social History Tobacco Use Types [...] COVID-19? No / Unsure 06/19/2021 11:16 AM MEAT SOAKER documented as of this encounter Plan of Treatment Upcoming Encounters Date Type Department Care Team (Late Contact Info) Description 03/03/2025 9:00 AM CDT Office Visit [facility] Physical Medicine and Rehabilitation Clinic [address] [phone] Jadon Floyd MD [address] [place] [address] 03/23/2025 12:45 PM CDT Appointment [facility] [address] [place] [address] [address] [place] [address] [place] [address] [facility] [address] [place] [address] 03/23/2025 1:30 PM CDT Hospital Encounter [facility] [address] [facility] [address] [place] [address] [place] [address] [facility] [address] [place] [address] 03/25/2025 10:20 AM CDT Virtual Visit [facility] Sports Medicine [facility] [place] [address] [place] [address] [address] [place] [address] [place] [address] [place] [address] 04/04/2025 12:00 PM MEAT SOAKER Office Visit [facility] [place] [address] [place] [phone] Sugey Mccoy, MANAGER TECHNICAL SUPPORT [facility] [address] [place], [place] [address]E [address] [place] [address] 05/30/2025 10:20 AM MEAT SOAKER Appointment [facility] [address]191 [facility] [address] [place] [address] Carlos Joyner MD [address] [place] [address] 250155 05/31/2025 2:00 PM MEAT SOAKER Virtual Visit [facility] Urology Clinic [place] 909 [facility] 4th [place] [phone] Carlos Joyner MD [address] [place] [address] 187085 07/25/2025 11:00 AM MEAT SOAKER Office Visit [facility] [address] [place] [address] [place] [address] [place] [address] documented as of this encounter Visit Diagnoses Not on filedocumented in this encounter Additional Health Concerns Infection Onset Date Last Indicated Resolved Time MRSA Comment:Added from external infection. Pt has had Staph infections but never MRSA from Care everywhere chart review. Removing MRSA 9.14.23 06/17/2019 02/06/2023 9:41 AM C TANG documented as of this encounter Care Teams Retail Analytics Manager Relationship Specialty Start Date End Date Ignacia Duran MD PCP - General Pediatrics 01/20/20 03/04/23 [place] [address] [facility] [place] [address] PCP - General 03/05/23 Carlos Joyner MD 9 [place] [address] Urology 12/09/19 Jadon Murray MD [facility] 2530 [facility] 550 [place] [address] Referring Physician Pediatric Surgery 12/09/19 Maru Villagomez, RN Registered Nurse 12/10/19 Ang Slade MD [address] 108745 Urology 04/24/20 Carlos Joyner MD [address] [place] [address] 670465 Assigned Surgical Provider 12/24/20 Annalise rOta PA-C 5200 [place] [address] Assigned Cancer Care Provider 05/13/21 11/01/22 Ang Slade MD [address] [address] Urology 12/18/22 Lakshmi Wilhelm PA-C [address] [place] [address] 49684 Physician Informatics Nurse Specialist Urology 02/03/23 [place] [address] [place] [address] Assigned PCP 02/06/23 Alissa Perez PA-C [address] [place] [address] Physician Informatics Nurse Specialist Surgery 09/04/23 Lakshmi Wilhelm PA-C [address] [place] [address] 12506 Physician Informatics Nurse Specialist Urology 09/16/23 Aidee Valero PA-C [address] [place] [address] 13925 Assigned Musculoskeletal Provider 04/17/24 02/14/25 Carlos Joyner MD [address] [place] [address] Urology 01/26/25 Jadon Floyd MD [address] [place] [address] 36032 Physician Physical Medicine and Rehabilitation 01/31/25 [place] [address] [place] [address] Assigned Musculoskeletal Provider 02/15/25 Tanisha Marlow 4120 [facility] [address] 03/30/24 documented as of this encounter
--- OUTSIDE RECORDS SUMMARY | 2025-02-27 01:59 | XMS_ITS | Encounter Summary ---
Author Organization [facility] Address [address] [place] [address] Care Team Providers Care Granulator Operator Name Role Phone Carlos Joyner MD Unavailable + [phone] Jadon Murray MD Unavailable +[phone] Maru Villagomez RN Unavailable Unavailable Ang Slade MD Unavailable +[phone] Carlos Joyner MD Unavailable +[phone] Ang Slade MD Unavailable [phone] Lakshmi Wilhelm-C Unavailable +[phone] Heladio Willoughby MD Primary Care Provider [phone] Heladio Willoughby MD Unavailable Alissa Perez PA-C Unavailable [phone] Lakshmi Wilhelm-C Unavailable +[phone] Aidee Valero PA-C Unavailable +[phone] Carlos Joyner MD Unavailable +[phone] Jadon Floyd MD Unavailable +[phone] Cayden Bejarano MD Unavailable Encounter Details Date Type Department Care Team (Late st Contact Info) Description 07/09/2024 [facility] Urology Clinic [place] 762499 [facility] 4th [place] [address] Hattie Wing, RN Social History [...] Center Physical Medicine and Rehabilitation Clinic [address] [address] Jadon Floyd MD [address] [place] [address] 374425 03/23/2025 12:45 PM CDT Appointment [facility] [address] [facility] [address] [place] [address] [place] [address] [place] [address] 03/23/2025 1:30 PM CDT Hospital Encounter [facility] [address] [facility] [address] [place] [address] [place]den [place] [address] [place] [address] [address] [place] [address] 03/25/2025 10:20 AM CDT Virtual Visit [facility] Sports Medicine [facility] [address] [place] [address] [address] [place] [address] [place] [address] [place] [address] 04/04/2025 12:00 PM INTEGRATION ARCHITECT Office Visit [facility] Sleep [address] [phone] Sugey Mccoy, ACTIVITIES AIDE [address] [address] 05/30/2025 10:20 AM INTEGRATION ARCHITECT Appointment [facility] [address] [facility] [address] [place] [address] Carlos Joyner MD [address] [place] [address] 013775 05/31/2025 2:00 PM INTEGRATION ARCHITECT Virtual Visit [facility] Urology Clinic [address] 4th [place] [phone] Carlos Joyner MD [address] [place] [address] 37705273 07/25/2025 11:00 AM INTEGRATION ARCHITECT Office Visit [facility] [place] [address] [address] [phone] [place] [address] [place] 3996168 documented as of this encounter Visit Diagnoses Not on filedocumented in this encounter Care Teams Granulator Operator Relationship Specialty [place] [address] [address] [phone] PCP - General 03/05/23 Carlos Joyner MD [address] [place] [address] Urology 12/09/19 Jadon Murray MD [facility] [address] [facility] 550 [place] [address] Referring Physician Pediatric Surgery 12/09/19 Maru Villagomez, RN Registered Nurse 12/10/19 Ang Slade MD [address] [place] [address] Urology 04/24/20 Carlos Joyner MD [address] [place] [address] Assigned Surgical Provider 12/24/20 Ang Slade MD [address] [address] Urology 12/18/22 Lakshmi Wilhelm PA-C [address] [place] [address] 62777 Physician Machine Grainer Urology 02/03/23 [place] [address] [place] [address] Assigned PCP 02/06/23 Alissa Perez PA-C [address] [place] [address]42 Physician Machine Grainer Surgery 09/04/23 Lakshmi Wilhelm PA-C [address] [place] [address]114 Physician Machine Grainer Urology 09/16/23 Aidee Valero PA-C [address] [place] [address] 648885 Assigned Musculoskeletal Provider 04/17/24 02/14/25 Carlos Joyner MD [address] [place] [address] 957145 Urology 01/26/25 Jadon Floyd MD [address] [place] [address]12 Physician Physical Medicine and Rehabilitation 01/31/25 [place] [address] [place] [address] Assigned Musculoskeletal Provider 02/15/25 Tanisha Marlow 4120 [facility] [id number] 03/30/24 documented as of this encounter
--- OUTSIDE RECORDS SUMMARY | 2025-02-27 01:59 | XMS_ITS | Encounter Summary ---
Author Organization [facility] Address [address] [place] [address]81 Care Team Providers Care Signals Collector/Analyst Name Role Phone Carlos Joyner MD Unavailable +[phone] Jadon Murray MD Unavailable +[phone] Maru Villagomez RN Unavailable Unavailable Ang Slade MD Unavailable +[phone] Carlos Joyner MD Unavailable +[phone] Ang Slade MD Unavailable +[phone] Lakshmi WilhelmC Unavailable +[phone] Heladio Willoughby MD Primary Care Provider +[phone] Heladio Willoughby MD Unavailable Alissa Perez PA-C Unavailable [phone] Lakshmi Wilhelm PA-C Unavailable +[phone] Aidee Valero-C Unavailable +[phone] Carlos Joyner MD Unavailable +[phone] Encounter Details Date Type Department Care Team [...] 9:00 AM CDT Office Visit [facility] Physical Medicine and Rehabilitation Clinic [address] [phone] Jadon Floyd MD [address] [place] [address] 125315 03/23/2025 12:45 PM CDT Appointment [facility] [address] [place] [address] Cayden Bejarano [place] [address] [place] [address] 03/23/2025 1:30 PM CDT Hospital Encounter [facility] [address] [place] [address] [place] [address] [place] [address] 03/25/2025 10:20 AM CDT Virtual Visit [facility] Medicine Clinic [place] [address] [place], [place] [address] [place] [address] [place] [address] [place] [address] 04/04/2025 12:00 PM FAMILY SERVICE ASSISTANT Office Visit [facility] [place] [address] [place] [phone] Darius Elvirginia Elder, [facility] [address] [place], [place] [address]E [address] [place] [address] 05/30/2025 10:20 AM FAMILY SERVICE ASSISTANT Appointment M [facility] [address] [facility] [address] [place] [phone] Carlos Joyner MD [address] [place] [address] [id number] 05/31/2025 2:00 PM FAMILY SERVICE ASSISTANT Virtual Visit [facility] Urology Clinic [address] 4th [place] [phone] Carlos Joyner MD [address] [place] [address] 631845 07/25/2025 11:00 AM FAMILY SERVICE ASSISTANT Office Visit [facility] [address] [place] [address] [place] [address] [place] [address] documented as of this encounter Visit Diagnoses Not on filedocumented in this encounter Care Teams Signals Collector/Analyst Relationship Specialty Start Date [place] [address] [place] [address] PCP - General 03/05/23 Carlos Joyner MD [address] [place] [address] 684005 Urology 12/09/19 Jadon Murray MD [facility] 2530 [facility] 550 [place] [address] Referring Physician Pediatric Surgery 12/09/19 Maru Villagomez, RN Registered Nurse 12/10/19 Ang Slade MD 420 [facility] 394 [place], [place] 358355 Urology 04/24/20 Carlos Joyner MD [address] [place] [address] 329555 Assigned Surgical Provider 12/24/20 Ang Slade MD [address] [place] [address] 394 [place], [place] 651585 Urology 12/18/22 Lakshmi Wilhelm PA-C [address] [place] [address] 677195 Physician Hog Feeder Urology 02/03/23 [place] [address] [place] [address] Assigned PCP 02/06/23 Alissa Perez PA-C [address] [place] [address] 687385 Physician Hog Feeder Surgery 09/04/23 Lakshmi Wilhelm PA-C [address] [place] [address] 021615 Physician Hog Feeder Urology 09/16/23 Aidee Valero PA-C 909 [place] [address] Assigned Musculoskeletal Provider 04/17/24 02/14/25 Carlos Joyner MD 9 [place], [place] 115895 Urology 01/26/25 Tanisha Marlow 4120 [facility] [address] 03/30/24 documented as of this encounter
--- OUTSIDE RECORDS SUMMARY | 2025-02-27 01:59 | XMS_ITS | Encounter Summary ---
Author Organization [facility] Address [address] [place] [address] Care Team Providers Care Division Sergeant Name Role Phone Carlos Joyner MD Unavailable [phone] Jadon Murray MD Unavailable [phone] Maru Villagomez RN Unavailable Unavailable Ignacia Duran MD Primary Care Provider [phone] Ang Slade MD Unavailable [phone] Carlos Joyner MD Unavailable [phone] Annalise Orta PA-C Unavailable [phone] Ang Slade MD Unavailable [phone] Lakshmi Wilhelm-C Unavailable [phone] Heladio Willoughby MD Primary Care Provider [phone] Heladio Willoughby MD Unavailable Alissa Perez PA-C Unavailable [phone] LaLakshmi morales-C Unavailable [phone] Aidee Valero PA-C Unavailable [phone] Carlos Joyner MD Unavailable [phone] Jadon Floyd MD Unavailable [phone] Cayden Bejarano MD Unavailable Encounter Details Date Type Department Care Team (Late st Contact Info) Description 07/31/2021 MyC Medical Advice [facility] Pre[facility] [address] 5th [place] [phone] Makenzie Drummond RN Social History Tobacco Use [...] 03/03/2025 9:00 AM CDT Office Visit [facility] [address] [place] [phone] Jadon Floyd MD [address] [place] [address] 03/23/2025 12:45 PM CDT Appointment [facility] [address] [facility] [address] [place] [phone] [place]jar[place] [id number] [place] [address] [address] CRUZ [address] [place] [address] 03/23/2025 1:30 PM CDT Hospital Encounter [facility] [address] [place] [phone] [place] [address] [facility] [place] [address] 03/25/2025 10:20 AM CDT Virtual Visit [facility] [place] [id number] [place], [place] [address] [place] [address] [place]jar[place] [id number] [place] [address] [address] [place] [address] 04/04/2025 12:00 PM RIVET SPINNER Office Visit [facility] [place] [address] [place] [phone] Sugey Mccoy, NESTOR MOSQUERA [address] [place], [place] [address]E [address] [place] [address] 05/30/2025 10:20 AM RIVET SPINNER Appointment [facility] [address] [place] [phone] Carlos Joyner MD [address] [place] [address] 05/31/2025 2:00 PM RIVET SPINNER Virtual Visit [facility] [place] [address] [facility] 4th [place] [phone] Carlos Joyner MD [address] [place] [address] [id number] 07/25/2025 11:00 AM RIVET SPINNER Office Visit [address] [address] Heladio Willoughby MD [address] [place] [address] documented as of this encounter Visit Diagnoses Not on filedocumented in this encounter Additional Health Concerns Infection Onset Date Last Indicated Resolved Time MRSA Comment:Added from external infection. Pt has had Staph infections but never MRSA from Care everywhere chart review. Removing MRSA .14.23 06/17/2019 02/06/2023 9:41 AM C DT documented as of this encounter Care Teams Division Sergeant Relationship Specialty Start Date End Date Ignacia Duran MD PCP - General Pediatrics 01/20/20 03/04/23 [place] [address] [facility] [place] [address] PCP - General 03/05/23 Carlos Joyner MD [address] [place] [address] Urology 12/09/19 Jadon Murray MD [facility] [address] [address] Referring Physician Pediatric Surgery 12/09/19 Maru Villagomez, OTILIO Registered Nurse 12/10/19 Ang Slade MD [address] [place] [address] Urology 04/24/20 Carlos Joyner MD [address] [place] [address] Assigned Surgical Provider 12/24/20 Annalise Orta PA-C [address] [place] [address] Assigned Cancer Care Provider 05/13/21 11/01/22 Ang Slade MD [address] [place] [address] [id number] Urology 12/18/22 Lakshmi Wilhelm PA-C [address] [place] [address] [phone] Physician Load Out Worker Urology 02/03/23 [place] [address] [place] [address] Assigned PCP 02/06/23 Alissa Perez PA-C [address] [place] [address] [id number] Physician Load Out Worker Surgery 09/04/23 Lakshmi Wilhelm PA-C [address] [place] [address] [id number] Physician Load Out Worker Urology 09/16/23 Aidee Valero PA-C [address] [place] [address] [phone] Assigned Musculoskeletal Provider 04/17/24 02/14/25 Carlos Joyner MD [address] [place] [address] [phone] Urology 01/26/25 Jadon Floyd MD [address] [place] [address] [phone] Physician Physical Medicine and Rehabilitation 01/31/25 [place] [address] [place] [address] Assigned Musculoskeletal Provider 02/15/25 Tanisha Marlow [address] [facility] [address] 03/30/24 documented as of this encounter
--- OUTSIDE RECORDS SUMMARY | 2025-02-27 01:59 | XMS_ITS | Clinical Summary ---
Author Organization [facility] Address [address] [place] [address] Care Team Providers Care Covered Button Maker Name Role Phone Carlos Joyner MD Unavailable [phone] Jadon Murray MD Unavailable [phone] Maru Villagomez RN Unavailable Unavailable Ang Slade MD Unavailable [phone] Carlos Joyner MD Unavailable [phone] Ang Slade MD Unavailable [phone] Lakshmi Wilhelm-C Unavailable [phone] Heladio Willoughby MD Primary Care Provider [phone] Heladio Willoughby MD Unavailable Alissa Perez PA-C Unavailable [phone] Lakshmi Wilhelm PA-C Unavailable [phone] Carlos Joyner MD Unavailable [phone] Jadon Floyd MD Unavailable [phone] Cayden Bejarano MD Unavailable Allergies Active [...] ALGINATE 2X2) PADSIndications:Pre ssure ulcer acquired in [facility] Externally apply 1 each topically daily [...] Irrigate with 240 mLs as directed daily. 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 (03/14/2020): Vertebra Absence Congenital Kyphosis (acquired) (postural) 08/04/2008 Overview (03/14/2020): Kyphosis Neurogenic bladder 07/22/2003 Overview (03/05/2023): LW Onset: [id number] ; Paralysis Bladder Neurogenic bowel 07/22/2003 Overview (03/14/2020): LW Onset: [id number] Paraplegia 07/22/2003 Overview (01/24/2025): T12 paraplegia, completely flaccid Short stature disorder 07/22/2003 Overview (03/14/2020): LW Onset: [id number] ; Short Stature 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/22/2003 Overview (07/23/2024): Complicated by hydrocephalus, s/p CLINIC MANAGER shunt; chiari type 2 malformation, syringomyelia, neurogenic bowel and bladder. At : [facility], aplasia cutis of scalp (pinpoint), R knee contracture, clubbed feet bilaterally, microcephaly, kyphosis. Specialist involved: Adult Spina Bifida Clinic - looking into locations/referrals Adult neurosurgery team - not needed until age 27 (currently following with Dr[facility] Rodgers [facility]) Adult Urology team - Dr. Joyner of [facility] Adult Sleep Medicine - referral placed Adult Orthopaedics - [facility] Ortho Resolved Problems Problem Noted Date Diagnosed Date Resolved Date Acute kidney failure, unspecified 02/10/2020 03/05/2023 Ulcer, surgical 06/07/2011 07/22/2024 Encounters Date Type Department Care Team Description 02/25/2025 10:45 AM CDT Virtual Visit [facility] [address] [address] Estrella Martinez NP Neurogenic bladder (Primary Dx); Recurrent UTI 02/25/2025 Results Follow-Up [facility] [address] [address] Rosita eVlasco RN Dx: Recurrent UTI (Primary Dx) 02/24/2025 PRE VISIT [facility] [address] [address] Estrella Martinez NP Pre Visit Planning - Done 02/22/2025 2:30 PM CDT Therapy Visit [address] [address] Eliza Carty OT 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, initial encounter (Primary Dx); Right wrist pain 02/22/2025 MyC Medical Advice [address] [address] Eliza Carty OT 02/22/2025 Travel 02/21/2025 11:05 AM CDT Lab [facility] [address] [place] [address] Recurrent UTI; Kidney stone 02/21/2025 Travel 02/17/2025 Travel 02/16/2025 Telephone [facility] [address] [address] Carlos Joyner MD Appointment (TE on 02/08/25 instructing Pt to schedule with Elissa Martinez CNP. [facility] does not have access to this provider. ) 02/15/2025 10:00 AM CDT Therapy Visit [address] [address] Eliza Carty OT 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, initial encounter (Primary Dx); Right wrist pain 02/15/2025 Travel 02/11/2025 Travel 02/08/2025 3:00 PM CDT Therapy Visit [address] [address] Cayden Bejarano MD Burch, Sophia, OT 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, initial encounter (Primary Dx); Right wrist pain 02/08/2025 Travel 02/08/2025 MyC Medical Advice [facility] Sports Medicine [address] [address] Cayden Bejarano MD 02/04/2025 Travel 02/03/2025 Telephone [facility] [address] [phone] Carlos Joyner MD Prior Auth - Medication (Acetohydroxamic Acid (LITHOSTAT) 250 MG TABS - [place] APPROVED) 02/03/2025 Telephone [facility] Urology [address] [phone] Carlos Joyner MD 02/03/2025 Telephone [place] [phone] [place] [address] Heladio Willoughby MD Forms (OT Outpatient/Thoratic Spina bifida- [facility]/) 02/01/2025 10:05 AM CDT Ancillary Procedure [facility] [address] [place] [address] Cayden Bejarano MD Right wrist pain 02/01/2025 10:00 AM CDT Office Visit [address] [address] Heladio Willoughby MD Yeo, Albert, MD 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, initial encounter (Primary Dx); Right wrist pain 02/01/2025 Travel 01/28/2025 9:30 AM CDT Office Visit [facility] [address] [place] [address] Heladio Willoughby MD Visit for wound check (Primary Dx); Pressure injury of back, stage 2 (H); Paraplegia (H); Right wrist pain 01/28/2025 Telephone [facility] Medicine [facility] Rehabilitation [facility] [address] [place] [address] Unknown, MD Ronak 01/28/2025 Travel 01/27/2025 Travel 01/26/2025 Travel 01/25/2025 10:45 AM CDT Virtual Visit [facility] Urology [address] [place] [phone] Carlos Joyner MD Recurrent UTI (Primary Dx); Kidney stone 01/25/2025 Telephone [facility] Physical Medicine and Rehabilitation [address] [place] [address] Unknown Referral 01/25/2025 PRE VISIT [facility] Urology [address] [place] [phone] Rosita Velasco RN Pre Visit Planning - Done 01/24/[address] [phone] Heladio Willoughby MD 01/19/2025 11:30 AM CDT Office Visit [address] [phone] Heladio Willoughby MD IUD check up (Primary Dx); Pressure injury of left lower back, stage 2 (H); History of pressure injury of skin; Paraplegia (H); Right wrist pain 01/18/2025 10:07 AM CDT - 01/18/2025 11:59 PM CDT Hospital Encounter [facility] [address] [place] [address] Mary Jo Pineda MD Bilateral nephrolithiasis Discharge Disposition: Home or Self Care 01/18/2025 Travel 01/17/2025 Travel 01/12/2025 5:30 PM CDT Virtual Visit [facility] [address] [place] [phone] Belen Arellano APRN STRATEGY SPECIALIST Open wound (Primary Dx); Paraplegia (H); Thoracic spina bifida, unspecified hydrocephalus presence (H) 01/12/2025 Results Follow-Up [facility] [place] [address] [place] [phone] Sugey Mccoy APRN STRATEGY SPECIALIST Subj: Sleep study results 01/03/2025 8:00 PM CDT Therapy Visit [facility] [address] [facility] [address] [place] [phone] Sugey Mccoy APRN STRATEGY SPECIALIST Snoring; Daytime sleepiness; Thoracic spina bifida, unspecified hydrocephalus presence (H); Chiari malformation type II (H) 01/03/2025 Travel 12/29/2024 Travel 12/20/2024 Medical Correspondence [facility] Information [address] [place] [address] Scan, Non-Provider 12/17/2024 Medical Correspondence [facility] Information [address] [place] [address] Scan, Non-Provider 12/17/2024 Telephone [facility] [address] [place] [phone] Heladio Willoughby MD Forms ([employer]/Standard written Order/Medicare Power mobility) 12/17/2024 MyC Medical Advice [facility] [address] [place] [phone] Heladio Willoughby MD 12/17/2024 Telephone [facility] [address] [place] [phone] Heladio Willoughby MD Forms (Justification For Durable medical Equipment/Mobility Assistance / Electric Wheelchair/) 12/14/2024 11:00 AM CDT Office Visit [facility] [address] [place] [phone] Heladio Willoughby MD Encounter for insertion of intrauterine contraceptive device (Primary Dx) 12/14/2024 Telephone [facility] [address] [place] [phone] Heladio Willoughby MD Forms ([facility]/Rehabilitati on Services) 12/14/2024 Travel 12/09/2024 Travel 12/06/2024 Telephone [facility] Urology [address] [place] [phone] Carlos Joyner MD Symptoms 12/06/2024 MyC Medical Advice [facility] Urology [address] [phone] Rosita Velasco RN 12/02/2024 11:09 AM CDT Anesthesia Event [facility] [address] [place] [phone] Suad Jackson MD Roethke, Lindsay, MD 12/02/2024 10:20 AM CDT - 12/02/2024 1:45 PM CDT Surgery [facility] [address] [place] [phone] Carlos Joyner MD Left Percutaneous Nephrolithotomy with left ureteral stent placement 12/02/2024 7:39 AM CDT - 12/04/2024 5:34 PM CDT Hospital Encounter [facility] [address] [facility] [place] [address] Carlos Joyner MD Recurrent cystitis (Primary Dx); Bilateral nephrolithiasis Discharge Disposition: Home or Self Care 12/02/2024 Travel 11/30/2024 Medical Correspondence [facility] Health Information Management [address] [facility] [address] [place] [address] Scan, Non-Provider 11/30/2024 Travel 11/29/[address] [phone] Heladio Willoughby MD Forms (DME Incontinence Supplies- [facility]) from Last 3 Months Immunizations Immunization Administration Dates Next Due DTAP (<7y) 01/18/2008,05/06/2005 DTaP, Unspecified 01/16/2015 DTaP/HepB/IPV 05/27/2003,03/21/2003,2002 Flu, Unspecified 02/26/2016,02/21/2009, 4 F3a0-46 Novel Flu 03/18/2009 S6i0-54 Novel Flu P-free 03/30/2004,05/27/2003 HIB (PRP-T) 05/27/2003,03/21/2003,2002 [...] Answer Date Recorded PHQ-2 Score 0 09/13/2024 [facility] - Occupational [...] Description 03/03/2025 9:00 AM CDT Office Visit [facility] [address] [place] [address] Jadon Floyd MD [address] [place] [address] 03/23/2025 12:[address] [facility] [address] [place] [address] [place] [address] [place] [address] 03/23/2025 1:30 PM CDT Hospital Encounter [facility] [address] [place] [address] [place] [address] [place] [address] 03/25/2025 10:20 AM CDT Virtual Visit [facility] Sports Medicine [facility] [address] [place] [address] [address] [place] [address] [place] [address] [place] [address] 04/04/2025 12:00 PM DIRECTOR UNDERWRITER SALES Office Visit [facility] Sleep [address] [phone] Sugey Mccoy APRN [address] [address] 05/30/2025 10:20 AM DIRECTOR UNDERWRITER SALES Appointment [facility] [address] [facility] [address] [place] [phone] Carlos Joyner MD [address] [place] [address] 05/31/2025 2:00 PM DIRECTOR UNDERWRITER SALES Virtual Visit [facility] [address] 4th [place] [phone] Carlos Joyner MD [address] [place] [address] 07/25/2025 11:00 AM DIRECTOR UNDERWRITER SALES Office Visit [facility] [address] [place] [address] [place] [address] [facility] [place] [place] [address] Health Maintenance Due Date Last [...] history exists Medical Devices Implanted Type Area Welding Pantograph Machine Operator Device Identifier Shelf Expiration Date Model / Serial / Lot Eligibility Clerk Shunt Shunt CODMAN / / [id number] Description:Per note, Codmendel Certas, needs model # Stent Ureteral Percuflex Plus [id number] [id number] - [id number] Implanted:Qty: 1 on 11/12/2021 by Carlos Joyner MD at [facility] Stent Right: Abdomen [employer] [id number] 12/26/2022 [id number] / [id number] Stent Ureteral Percuflex Plus [id number] - [id number] Implanted:Qty: 1 on 12/02/2024 by Carlos Joyner MD at [facility] Stent Left: Ureter [employer] [id number] 06/03/2027 [id number] / / [id number] Stent Ureteral Percuflex Plus [id number] [id number] - [id number] Implanted:Qty: 1 on 12/02/2024 by Carlos Joyner MD at [facility] Stent Right: Ureter [employer] [id number] 04/13/2027 [id number] / [id number] Ureteral Catheter 5 Kosovan Implanted:Qty: 1 on 03/31/2023 by Elizabeth Jacobsen MD at [facility] Right: Ureter 02/02/2026 [id number] / / [id number] Description:5 lao Uretera l catheter used as a stent in right ureter 5 Kosovan Open Ended Catheter Implanted:Qty: 1 on 03/31/2023 by Elizabeth Jacobsen MD at [facility] Left: Ureter 02/19/2026 [id number] / / [id number] Explanted Type Area Welding Pantograph Machine Operator Device Identifier Shelf Expiration Date Model / Serial / Lot Stent Ureteral Percuflex Plus 2lps06ub - [id number] Implanted:Qty: 1 on 05/10/2021 by Carlos Joyner MD at [facility] Explanted:Qty: 1 on 08/09/2021 by Jane Gomez MD at [facility] Stent Right: Urethra [employer] 06/14/2022 [id number] Description:Ureter Stent Ureteral Percuflex Plus 8oxl27iy - [id number] Implanted:Qty: 1 on 05/10/2021 by Carlos Joyner MD at [facility] Explanted:Qty: 1 on 08/09/2021 by Jane Gomez MD at [facility] Stent Left: Urethra [employer] 07/25/2022 [id number] Stent Ureteral Percuflex Plus [id number] - [id number] Implanted:Qty: 1 on 08/09/2021 by Jane Gomez MD at [facility] Explanted:Qty: 1 on 11/12/2021 at [facility] Stent Right: Ureter [employer] 02/29/2024 [id number] Stent Ureteral Percuflex Plus [id number] - [id number] Implanted:Qty: 1 on 08/09/2021 by Jane Gomez MD at [facility] Explanted:Qty: 1 on 11/12/2021 at [facility] Stent Right: Ureter [employer] 02/29/2024 [id number] 5 Fr X 22cm Ureteral Stent Explanted:Qty: 1 on 02/07/2020 by Carlos Joyner MD at [facility] COOK 5 Fr X 22cm Ureteral Stent Explanted:Qty: 1 on 02/07/2020 by Carlos Joyner MD at [facility] COOK Procedures Procedure Name Priority Date/Time [...] Discharge 01/18/2025 10:39 AM CDT Bilateral nephrolithiasis ENGINEER TECHNICAL STAFF COMPREHENSIVE SLEEP Routine 01/10/2025 7:34 AM CDT Snoring Daytime sleepiness Thoracic spina bifida, unspecified hydrocephalus presence (H) Chiari malformation type II (H) HI INSERT INTRAUTERINE DEVICE Routine 12/14/2024 12:24 PM [...] LAB - BLOOD ORDERABLES Fin al Result [facility] [address] Lab (1st floor, no room number) [place] [phone] * Reticulocyte count (02/21/2025 11:26 [...] ORDERABLES Fin al Result Performing Organization Address City/[facility]/ZIP Co de Phone Number [facility] [address] Lab (1st floor, no room number) [place] [phone] * Hepatic panel (Albumin, ALT, [...] AM CDT 02/21/2025 11:27 AM CDT us Cralos Joyner MD LAB - BLOOD ORDERABLES Fin al Result LABORATORY [facility] Acute Care Lab [address] [facility] Lab (1st floor, no room number) [place] [address], [facility] * [...] - BLOOD ORDERABLES Fin al Result LABORATORY [facility] Care Lab [address] [facility] Lab (1st floor, no room number) [place] [address] * (ABNORMAL) Urine Culture Aerobic [...] and Susceptibility testing requested by Dr Joyner [phone] Multiple morphotypes present with no predominant organism. [...] Edited Result - Final UU IDD LABORATORY [facility] Inf. Diseases Diag. Lab [address] [facility] [place] [place], [address] [place] [address], [facility] * XR Wrist Right G/E 3 Views [...] EXAM: CT ABDOMEN PELVIS W/O CONTRAST LOCATION: [facility] DATE: 01/18/2025 INDICATION: Bilateral nephrolithiasis COMPARISON: None. [...] EXAM: CT ABDOMEN PELVIS W/O CONTRAST LOCATION: [facility] DATE: 01/18/2025 INDICATION: Bilateral nephrolithiasis COMPARISON: None. [...] Comprehensive Sleep Study (01/10/2025 7:34 AM CDT) ENGINEER TECHNICAL STAFF Comprehensive Sleep [facility] PFT 01/10/2025 7:34 AM [...] weighs 155.0 lbs. Her BMI is 32.5, Raeford sleepiness scale6 and neck circumference is 38 [...] G47.33 Repetitive Intrusions Into Sleep F51.8 01/03/2025 [facility] Study (155.0 lbs) - AHI 6.2, RDI 9.3,Supine AHI 6.2, REM AHI 14.6, Low O2 76.0%, Time Spent <=88% 1.4 minutes /Time Spent <=89% 1.9 minutes. Electronically Signed By: Teja Blum MD 01/09/2025 us Sugey Mccoy MACHINE ROOM ENGINEER STRATEGY SPECIALIST PROCEDURES Final Re sult [facility] * Extra Green Top (Olean Heparin) Tube (12/04/2024 7:22 AM CDT) Pathologist [facility] Hold Specimen [facility] 12/04/2024 9:01 AM CDT UR LABORATORY Blood STRUCTURE OF RIGHT HAND / Unknown Venipuncture / Unknown 12/04/2024 7:22 AM CDT 12/04/2024 7:55 AM CDT us Carlos Joyner MD LAB - BLOOD ORDERABLES Fin al Result UR LABORATORY [facility] Acute Care Lab [facility], [address] [place] [address], [place] * (ABNORMAL) CBC with platelets (12/04/2024 [...] BLOOD ORDERABLES Final Res ult UR LABORATORY [facility] Acute Care Lab [address] [facility], [address] [place] [address], [facility] * XR Surgery NARA L/T 5 Min Fluoro (12/02/2024 1:42 PM CDT) Narrative RADIANT - 12/02/2024 1:44 PM CDT This exam was marked as non-reportable because it will not be read by a radiologist or a [place] non-radiologist provider. us Carlos Joyner MD IMG [...] [facility]AL [facility] Inf. Diseases Diag. Lab [address] [facility] [place], [address] [place], [place] [phone] * Stone analysis (12/02/2024 1:08 PM CDT) Stone Mass 975 mg 12/06/2024 10:07 PM CDT [facility] Calculi Description See Note 12/06/2024 10:07 PM CDT [facility] Comment: Specimen consists of numerous brown and jacobsen calculi fragments. The total weight is 975 mg. Stone Composition See Note 025 10:07 PM CDT [facility] Comment: Calculi composed primarily of calcium phosphate [...] composition determined by FTIR analysis. Performed By: [facility] [address] [place] [address] Energy And Sustainability Manager: Roosevelt Mcghee MD, PhD CLIA Number: [id number] Calculus/Stone LEFT KIDNEY STRUCTURE / Unknown Non-blood Collection / Unknown 12/02/2024 1:08 PM CDT 12/02/2024 1:35 PM CDT Carlos Joyner MD LAB - BODY FLUIDS ORDERABL ES Final Result [facility] [address] [place] [address], [facility] [phone] * ANE AIRWAY ETT PERFORMABLE (12/02/2024 11:29 [...] Time: 12/02/2024 11:29 AM Suad Jackson MD HI ANESTHESIA Final Result * Adult Type and [...] ORDE R Final Result UR BLOOD BANK [facility] [place] Blood Components Lab [address] [facility], [address] [place] [address] * Pap Screen Only - [...] component of this testing was completed at [facility]. Stain controls for all stains resulted within this report have been reviewed and show appropriate reactivity. 2024 1:59 PM CDT SPECIALTY LABS Brushing ENDOCERVICAL STRUCTURE / Unknown Non-blood Collection / Unknown 09/13/2024 12:04 PM CDT 09/13/2024 12:07 PM CDT us Heladio COLLINS - JOHN GALLEGOS Final Result [facility] [address] [facility] [address], [address] [address], [facility] from Last 3 Months or Most Recently Relevant to Health Maintenance Insurance [place] Advance Directives For more information, please contact: [phone] Documents on File Type Date Recorded Patient Cracking And Fanning Machine Operator Expl anation Advance Directives and Living [...] patie nt/ legal decision maker Care Teams Covered Button Maker Relationship Specialty [place] [address] [place] [address] PCP - General 03/05/23 Carlos Joyner MD [address] [place], [place] [phone] Urology 12/09/19 Jadon Murray MD [facility] [address] [facility] [address] [place] [address] Referring Physician Pediatric Surgery 12/09/19 Maru Villagomez, RN Registered Nurse 12/10/19 Ang Slade MD [address] [place] [address] [address] [place], [place] 4[address] Urology 04/24/20 Carlos Joyner MD [address] [place] [address] Assigned Surgical Provider 12/24/20 Ang Slade MD [address] [place] [id number] MD Urology 12/18/22 Lakshmi Wilhelm PA-C [address] [place] [address] [phone] Physician Cctv Technician Urology 02/03/23 [place] [address] [place] [address] Assigned PCP 02/06/23 Alissa Perez PA-C [address] [place] [address]165 Physician Cctv Technician Surgery 09/04/23 Lakshmi Wilhelm PA-C [address] [place] [address] Physician Cctv Technician Urology 09/16/23 Carlos Joyner MD [address] [place] [address] Urology 01/26/25 Jadon Floyd MD [address] [place] [address] 243155 Physician Physical Medicine and Rehabilitation 01/31/25 [place] [address] [place] [address] Assigned Musculoskeletal Provider 02/15/25 Tanisha Marlow [address] [facility] [address] 03/30/24
--- OUTSIDE RECORDS SUMMARY | 2025-02-27 01:59 | XMS_ITS | Encounter Summary ---
Author Organization [place] Address [address] [place] [address] Care Team Providers Care Clean Out Driller Helper Name Role Phone Carlos Joyner MD Unavailable +[phone] Jadon Murray MD Unavailable +[phone] Maru Villagomez RN Unavailable Unavailable Ang Slade MD Unavailable +[phone] Carlos Joyner MD Unavailable +[phone] Ang Slade MD Unavailable +[phone] Lakshmi Wilhelm-C Unavailable +[phone] Heladio Willoughby MD Primary Care Provider +[phone] Heladio Willoughby MD Unavailable Alissa Perez PA-C Unavailable +[phone] Lakshmi Wilhelm-C Unavailable +[phone] Aidee Valero PA-C Unavailable +[phone] Carlos Joyner MD Unavailable +[phone] Jadon Floyd MD Unavailable +[phone] Cayden Bejarano MD Unavailable Encounter Details Date Type Department Care Team (Late st Contact Info) Description 04/08/2023 [facility] [place] [id number] [facility] 4th [place] [address] Rosita Velasco, RN Social History [...] in an overnight halfway, or couch-surfing.) Yes 04/11/2023 Are you worried [...] [facility] [address] [address] Jadon Floyd MD [address] [place] [address] 170175 03/23/2025 12:45 PM CDT Appointment [facility] [address] [facility] [address] [place] [address] [place] [address] [place] [address] 03/23/2025 1:30 PM CDT Hospital Encounter [facility] [address] [facility] [address] [place] [address] [place] [id number] [place] [address] [address] [place] [address] 03/25/2025 10:20 AM CDT Virtual Visit [facility] [address] [place] [address] [address] [place] [address] [place] [address] [place] [address] 04/04/2025 12:00 PM FIRE HYDRANT MECHANIC Office Visit [facility] Sleep [address] [phone] Sugey Mccoy, NESTOR [address] [address] 05/30/2025 10:20 AM FIRE HYDRANT MECHANIC Appointment [facility] [address] [facility] [address] [place] [address] Carlos Joyner MD [address] [place] [address] 407185 05/31/2025 2:00 PM FIRE HYDRANT MECHANIC Virtual Visit [facility] [address] 4th [place] [address] Carlos Joyner MD [address] [place] [address] 07/25/2025 11:00 AM FIRE HYDRANT MECHANIC Office Visit [facility] [address] [phone] [place] [address] [address] [place] [phone] documented as of this encounter Visit Diagnoses Not on filedocumented in this encounter Care Teams Clean Out Driller Helper Relationship Specialty [place] [address] [address] [id number] PCP - General 03/05/23 Carlos Joyner MD [address] [place] [address] Urology 12/09/19 Jadon Murray MD [facility] 2530 [facility] 550 [place] [address] Referring Physician Pediatric Surgery 12/09/19 Maru Villagomez, RN Registered Nurse 12/10/19 Ang Slade MD [address] [place] [address] Urology 04/24/20 Carlos Joyner MD [address] [place] [address] Assigned Surgical Provider 12/24/20 Ang Slade MD [address] [place] [address]7584 Urology 12/18/22 Lakshmi Wilhelm PA-C [address] [place] [address] Physician Disaster Recovery Analyst Urology 02/03/23 [place] [address] [place] [address] Assigned PCP 02/06/23 Alissa Perez PA-C [address] [place] [address]61 Physician Disaster Recovery Analyst Surgery 09/04/23 Lakshmi Wilhelm PA-C [address] [place] [address]22 Physician Disaster Recovery Analyst Urology 09/16/23 Aidee Valero PA-C [address] [place] [address] 803855 Assigned Musculoskeletal Provider 04/17/24 02/14/25 Carlos Joyner MD [address] [place] [address] 733165 Urology 01/26/25 Jadon Floyd MD [address] [place] [address] 36628 Physician Physical Medicine and Rehabilitation 01/31/25 [place] [address] [place] [address] Assigned Musculoskeletal Provider 02/15/25 Tanisha Marlow [facility] [address] 03/30/24 documented as of this encounter
--- OUTSIDE RECORDS SUMMARY | 2025-02-27 02:00 | XMS_ITS | Encounter Summary ---
Author Organization [facility] Address [address] [place] [address] Care Team Providers Care Blanket Inspector Name Role Phone Carlos Joyner MD Unavailable + [phone] Jadon Murray MD Unavailable +[phone] Maru Villagomez RN Unavailable Unavailable Ignacia Duran MD Primary Care Provider +[phone] Carlos Joyner MD Unavailable + 5640 Ang Slade MD Unavailable +[phone] Ang Slade MD Unavailable +[phone] Carlos Joyner MD Unavailable + 56[address] Annalise Orta PA-C Unavailable +[phone] Ang Slade MD Unavailable [phone] Lakshmi Wilhelm-C Unavailable +[phone] Heladio Willoughby MD Primary Care Provider +[phone] Heladio Willoughby MD Unavailable Alissa Perez PA-C Unavailable [phone] Lakshmi Wilhelm-C Unavailable +[phone] Aidee Valero PA-C Unavailable +[phone] Carlos Joyner MD Unavailable +[phone] Jadon Floyd MD Unavailable +[phone] Cayden Bejarano MD Unavailable Reason for Visit * Reason Comments Orders Encounter Details Date Type Department Care Team (Late st Contact Info) Description 02/02/2020 Orders Only [facility] Urologic [facility] [address] [place] [address] 4th [place] [phone] Maru Villagomez RN Social History Tobacco Use [...] Description 03/03/2025 9:00 AM CDT Office Visit [facility] Physical Medicine [facility] Rehabilitation Clinic [address] 3rd [place] [address] Jadon Floyd MD [address] [place] [address] 03/23/2025 12:45 PM CDT Appointment [facility] [address] [facility] [address] [place] [address] [place] [address] [place] [address] 03/23/2025 1:30 PM CDT Hospital Encounter [facility] [address] [place] [address] [place] [address] [place] [address] 03/25/2025 10:20 AM CDT Virtual Visit [facility] [place] [address] [facility] [address] [place] [address] [place] [address] [place] [address] 04/04/2025 12:00 PM RESERVATIONS SALES AGENT Office Visit [facility] [place] [address] [place] [address] Sugey Mccoy, LIGHTING ENGINEER [facility] [address] [place] [address] [address] [place] [address] 05/30/2025 10:20 AM RESERVATIONS SALES AGENT Appointment [facility] [address] [facility] [address] [place] [address] Carlos Joyner MD [address] [place] [address] 118705 05/31/2025 2:00 PM RESERVATIONS SALES AGENT Virtual Visit [facility]rology [facility] [place] [address] [place] [address] 4th [place] [address] Carlos Joyner MD [address] [place] [place] [address] 019325 07/25/2025 11:00 AM RESERVATIONS SALES AGENT Office Visit [place] [address] [place] [address] [place] [address] [place] [address] documented as of this encounter Visit Diagnoses Not on filedocumented in this encounter Additional Health Concerns Infection Onset Date Last Indicated Resolved Time MRSA Comment:Added from external infection. Pt has had Staph infections but never MRSA from Care everywhere chart review. Removing MRSA 9.14.06/17/2019 02/06/2023 9:41 AM C DT documented as of this encounter Care Teams Blanket Inspector Relationship Specialty Start Date End Date Ignacia Duran MD PCP - General Pediatrics 01/20/20 03/04/23 [place] [address] [place] [address] PCP - General 03/05/23 Carlos Joyner MD [address] [place] [address]82 Urology 12/09/19 Jadon Murray MD [facility] 2530 [facility] 550 [place], [place] [phone] Referring Physician Pediatric Surgery 12/09/19 Maru Villagomez, OTILIO Registered Nurse 12/10/19 Carlos Joyner MD [address] [place] [address] 615305 Assigned Surgical Provider 03/17/20 08/12/20 Ang Slade MD 420 [facility] 394 [place], [place] 337485 Urology 04/24/20 Ang Slade MD 420 [facility] 394 [place] [address] Assigned Surgical Provider 08/13/20 12/23/20 Carlos Joyner MD [address] [place] [address]22 Assigned Surgical Provider 12/24/20 Annalise Orta PA-C 5200 [place] [address] Assigned Cancer Care Provider 05/13/21 11/01/22 Ang Slade MD [address] [place] [address] 698505 Urology 12/18/22 Lakshmi Wilhelm PA-C [address] [place] [address] 237685 Physician Medical Laboratory Technicians Urology 02/03/23 [place] [address] [place] [address] Assigned PCP 02/06/23 Alissa Perez PA-C [address] [place] [address] 282725 Physician Medical Laboratory Technicians Surgery 09/04/23 Lakshmi Wilhelm PA-C [address] [place] [address] 02660 Physician Medical Laboratory Technicians Urology 09/16/23 Aidee Valero PA-C [address] [place] [address] Assigned Musculoskeletal Provider 04/17/24 02/14/25 Carlos Joyner MD [address] [place] [address] 7[address] Urology 01/26/25 Jadon Floyd MD 909 [place] [address] Physician Physical Medicine and Rehabilitation 01/31/25 [place] [address] [place] [address] Assigned Musculoskeletal Provider 02/15/25 Tanisha Marlow 4120 [facility] [address] 03/30/24 documented as of this encounter
--- OUTSIDE RECORDS SUMMARY | 2025-02-27 02:00 | XMS_ITS | Encounter Summary ---
Author Organization [place] Address [address] [place] [address] Care Team Providers Care Surgical Services Coordinator Name Role Phone Carlos Joyner MD Unavailable + [phone] Jadon Murray MD Unavailable +[phone] Maru Villagomez RN Unavailable Unavailable Ang Slade MD Unavailable +[phone] Carlos Joyner MD Unavailable + [phone] Ang Slade MD Unavailable +[phone] Lakshmi Wilhelm-C Unavailable +[phone] Heladio Willoughby MD Primary Care Provider +[phone] Heladio Willoughby MD Unavailable Alissa Perez PA-C Unavailable [phone] Lakshmi Wilhelm-C Unavailable +[phone] Aidee Valero PA-C Unavailable +[phone] Carlos Joyner MD Unavailable + [phone] Jadon Floyd MD Unavailable +[phone] Cayden Bejarano MD Unavailable Encounter Details Date Type Department Care Team (Late st Contact Info) Description 09/08/2023 [facility] [address] [address] Luis M-Bhavna Milligan Social History [...] [facility] [address] [address] Jadon Floyd MD [address] [place] [address] 649275 03/23/2025 12:45 PM CDT Appointment [facility] [address] [facility] [address] [place] [address] [place] [address] [place] [address] 03/23/2025 1:30 PM CDT Hospital Encounter [facility] [address] [facility] [address] [place] [address] [place]den [place] [address] [place] [address] [address] [place] [address] 03/25/2025 10:20 AM CDT Virtual Visit [facility] Sports Medicine [facility] [address] [place] [address] [address] [place] [address] [place] [address] [place] [address] 04/04/2025 12:00 PM ASSIGNMENT DESK ASSISTANT Office Visit [facility] Sleep [address] [phone] Sugey Mccoy, NESTOR [address] [address] 05/30/2025 10:20 AM ASSIGNMENT DESK ASSISTANT Appointment [facility] [address] [facility] [address] [place] [address] Carlos Joyner MD [address] [place] [address] 241685 05/31/2025 2:00 PM ASSIGNMENT DESK ASSISTANT Virtual Visit [facility] Urology Clinic [address] 4th [place] [address] Carlos Joyner MD [address] [place] [address] 07/25/2025 11:00 AM ASSIGNMENT DESK ASSISTANT Office Visit [facility] [address] [address] [phone] [place] [address] [address] [place] [phone] documented as of this encounter Visit Diagnoses Not on filedocumented in this encounter Care Teams Surgical Services Coordinator Relationship Specialty [place] [address] [address] [phone] PCP - General 03/05/23 Carlos Joyner MD [address] [place] [address] Urology 12/09/19 Jadon Murray MD [facility] 2530 [facility] 550 [place] [address] Referring Physician Pediatric Surgery 12/09/19 Maru Villagomez, RN Registered Nurse 12/10/19 Ang Slade MD [address] [place] [address] Urology 04/24/20 Carlos Joyner MD [address] [place] [address] Assigned Surgical Provider 12/24/20 Ang Slade MD [address] [place] [address] 15248 Urology 12/18/22 Lakshmi Wilhelm PA-C [address] [place] [address] Physician Timber Setter Urology 02/03/23 [place] [address] [place] [address] Assigned PCP 02/06/23 Alissa Perez PA-C [address] [place] [address] Physician Timber Setter Surgery 09/04/23 Lakshmi Wilhelm PA-C [address] [place] [address] Physician Timber Setter Urology 09/16/23 Aidee Valero PA-C [address] [place] [address] 284825 Assigned Musculoskeletal Provider 04/17/24 02/14/25 Carlos Joyner MD [address] [place] [address] 115275 Urology 01/26/25 Jadon Floyd MD [address] [place] [address] Physician Physical Medicine and Rehabilitation 01/31/25 [place] [address] [place] [address] Assigned Musculoskeletal Provider 02/15/25 Tanisha Marlow [facility] [address] 03/30/24 documented as of this encounter
--- OUTSIDE RECORDS SUMMARY | 2025-02-27 02:00 | XMS_ITS | Encounter Summary ---
Author Organization [place] Address [address] [place] [address] Care Team Providers Care Senior Gl Accountant Name Role Phone Carlos Joyner MD Unavailable +[phone] Jadon Murray MD Unavailable +[phone] Maru Villagomez RN Unavailable Unavailable Ignacia Duran MD Primary Care Provider +[phone] Ang Slade MD Unavailable +[phone] Carlos Joyner MD Unavailable +[phone] Annalise Orta PA-C Unavailable +[phone] Ang Slade MD Unavailable +[phone] Lakshmi Wilhelm-C Unavailable +[phone] Heladio Willoughby MD Primary Care Provider +[phone] Heladio Willoughby MD Unavailable Alissa Perez PA-C Unavailable [phone] LaLakshmi morales-C Unavailable +[phone] Aidee Valero PA-C Unavailable +[phone] Carlos Joyner MD Unavailable +[phone] Jadon Floyd MD Unavailable [phone] Cayden Bejarano MD Unavailable Encounter Details Date Type Department Care Team (Late st Contact Info) Description 10/01/2021 My[facility] Medical Advice [facility] Urology Clinic [address] 4th [place] [address] Carlos Joyner MD [address] [place] [address] Social History Tobacco Use Types Packs/Day Years [...] Upcoming Encounters Date Type Department Care Team ([facility] Contact Info) Description 03/03/2025 9:00 AM CDT Office Visit [facility] Physical Medicine and Rehabilitation Clinic [address] [phone] Jadon Floyd MD [address] [place] [address] 03/23/2025 12:45 PM CDT Appointment [facility] [address] [facility] [address] [place] [address] Cayden Bejarano MD [address] [place] [address] [address] [place] [address] 03/23/2025 1:30 PM CDT Hospital Encounter [facility] [address] [place] [address] [place]den [place]jar[place] [address] [place] [address] [address] [place] [address] 03/25/2025 10:20 AM CDT Virtual Visit [facility] Sports Medicine Clinic [place] [address] [place] [address] [place] [address] [place] [address] 04/04/2025 12:00 PM SEO SPECIALIST Office Visit [facility] [place] [address] [place] [address] Sugey Mccoy APRN [facility] [address] [place], [place] [address]E [address] [place], [place] 4542[address] 05/30/2025 10:20 AM SEO SPECIALIST Appointment [facility] [address] [facility] [address] [place] [address] Carlos Joyner MD [address] [place] [address] 242945 05/31/2025 2:00 PM SEO SPECIALIST Virtual Visit [facility] Urology Clinic [place] [address] [place] [address] 4th [place] [address] Carlos Joyner MD [address] [place] [address] 370135 07/25/2025 11:00 AM SEO SPECIALIST Office Visit [facility] [address] [place] [address] [place] [address] [place] [address] documented as of this encounter Visit Diagnoses Not on filedocumented in this encounter Additional Health Concerns Infection Onset Date Last Indicated Resolved Time MRSA Comment:Added from external infection. Pt has had Staph infections but never MRSA from Care everywhere chart review. Removing MRSA 9.14.23 06/17/2019 02/06/2023 9:41 AM C DT documented as of this encounter Care Teams Senior Gl Accountant Relationship Specialty Start Date End Date Ignacia Duran MD PCP - General Pediatrics 01/20/20 03/04/23 [place] [address] [place] [address] PCP - General 03/05/23 Carlos Joyner MD 909 [place] [address] Urology 12/09/19 Jadon Murray MD [facility] [address] [address] Referring Physician Pediatric Surgery 12/09/19 Maru Villagomez, RN Registered Nurse 12/10/19 Ang Slade MD [address] [address] Urology 04/24/20 Carlos Joyner MD [address] [place] [address] Assigned Surgical Provider 12/24/20 Annalise Orta PA-C [address] [facility] [place] [address] Assigned Cancer Care Provider 05/13/21 11/01/22 Ang Slade MD 420 [facility] 394 [place] [address] Urology 12/18/22 Lakshmi Wilhelm PA-C [address] [place] [address] Physician Cleaning Maid Urology 02/03/23 [place] [address] [place] [address] Assigned PCP 02/06/23 Alissa Perez PA-C [address] [place] [address] Physician Cleaning Maid Surgery 09/04/23 Lakshmi Wilhelm PA-C [address] [place] [address] Physician Cleaning Maid Urology 09/16/23 Aidee Valero PA-C [address] [place] [address] Assigned Musculoskeletal Provider 04/17/24 02/14/25 Carlos Joyner MD [address] [place] [address] Urology 01/26/25 Jadon Floyd MD [address] [place] [address] Physician Physical Medicine and Rehabilitation 01/31/25 [place] [address] [place] [place] [address] Assigned Musculoskeletal Provider 02/15/25 Tanisha Marlow 4120 [facility] [address] 03/30/24 documented as of this encounter
--- OUTSIDE RECORDS SUMMARY | 2025-02-27 02:00 | XMS_ITS | Encounter Summary ---
Author Organization [facility] Address [address] [place] [address] Care Team Providers Care Round Up Ring Hand Name Role Phone Carlos Joyner MD Unavailable [phone] Jadon Murray MD Unavailable [phone] Maru Villagomez RN Unavailable Unavailable Ignacia Duran MD Primary Care Provider [phone] Ang Slade MD Unavailable +[phone] Carlos Joyner MD Unavailable +[phone] Annalise Orta PA-C Unavailable +[phone] Ang Slade MD Unavailable +[phone] Lakshmi Wilhelm-C Unavailable +[phone] Heladio Willoughby MD Primary Care Provider [phone] Heladio Willoughby MD Unavailable Alissa Perez PA-C Unavailable [phone] LaLakshmi morales-C Unavailable +[phone] Aidee Valero PA-C Unavailable +[phone] Carlos Joyner MD Unavailable +[phone] Jadon Floyd MD Unavailable [phone] Cayden Bejarano MD Unavailable Encounter Details Date Type Department Care Team (Late st Contact Info) Description 10/02/2021 MyC Medical Advice [facility] [address]th [place] [address] Analisa Palacio RN Social History Tobacco Use [...] [facility] [address]rd [place] [address] Jadon Floyd MD [address] [place] [address] 03/23/2025 12:45 PM CDT Appointment [facility] Imaging [address] [place] [address] [place] [address] [facility] [address] [place] [address] 03/23/2025 1:30 PM CDT Hospital Encounter [facility] Imaging [address] [place] [address] [place] [address] [facility] [address] [place] [address] 03/25/2025 10:20 AM CDT Virtual Visit [facility] [place] [address] [place] [address] [place] [address] [place] [address] 04/04/2025 12:00 PM EVENT SALES ASSISTANT Office Visit [facility] [place] [address] [facility] [address] Sugey Mccoy APRN [facility] [address] [place] [address] [address] [place], [place] 413484 05/30/2025 10:20 AM EVENT SALES ASSISTANT Appointment [facility] [address] [facility] [address] [place] [address] Carlos Joyner MD [address] [place] [address] 05/31/2025 2:00 PM EVENT SALES ASSISTANT Virtual Visit [facility] [place] 909 [facility] 4th [place] [address] Carlos Joyner MD [address] [place] [address] 002485 07/25/2025 11:00 AM EVENT SALES ASSISTANT Office Visit [facility] [address] [place] [address] [place] [address] [place] [address] documented as of this encounter Visit Diagnoses Not on filedocumented in this encounter Additional Health Concerns Infection Onset Date Last Indicated Resolved Time MRSA Comment:Added from external infection. Pt has had Staph infections but never MRSA from Care everywhere chart review. Removing MRSA 9.14.23 06/17/2019 02/06/2023 9:41 AM C DT documented as of this encounter Care Teams Round Up Ring Hand Relationship Specialty Start Date End Date Ignacia Duran MD PCP - General Pediatrics 01/20/20 03/04/23 [place] [address] [place] [address] PCP - General 03/05/23 Carlos Joyner MD [address] [place] [address] 185025 Urology 12/09/19 Jadon Murray MD [facility] [address] [address] Referring Physician Pediatric Surgery 12/09/19 Maru Villagomez, OTILIO Registered Nurse 12/10/19 Ang Slade MD [address] [place] [address] 644095 Urology 04/24/20 Carlos Joyner MD [address] [place] [address] 17518 Assigned Surgical Provider 12/24/20 Annalise Orta PA-C 5200 [place] [address] Assigned Cancer Care Provider 05/13/21 11/01/22 Ang Slade MD [address] [place] [address] Urology 12/18/22 Lakshmi Wilhelm PA-C [address] [place] [address]30 Physician Cryptologic Technician Operator/Analyst Urology 02/03/23 [place] [address] [place] [address] Assigned PCP 02/06/23 Alissa Perez PA-C [address] [place] [address] Physician Cryptologic Technician Operator/Analyst Surgery 09/04/23 Lakshmi Wilhelm PA-C [address] [place] [address] 57[address] Physician Cryptologic Technician Operator/Analyst Urology 09/16/23 Aidee Valero PA-C [address] [place] [address] 838395 Assigned Musculoskeletal Provider 04/17/24 02/14/25 Carlos Joyner MD [address] [place] [address] 666045 Urology 01/26/25 Jadon Floyd MD [address] [place] [address] 786615 Physician Physical Medicine and Rehabilitation 01/31/25 [place] [address] [place] [address] Assigned Musculoskeletal Provider 02/15/25 Tanisha Marlow 4120 [facility] [address] 03/30/24 documented as of this encounter
--- OUTSIDE RECORDS SUMMARY | 2025-02-27 02:00 | XMS_ITS | Encounter Summary ---
Author Organization [facility] Address [address] [place] [address] Care Team Providers Care Electric Furnace Operator Name Role Phone Carlos Joyner MD Unavailable [phone] Jadon Murray MD Unavailable [phone] Maru Villagomez RN Unavailable Unavailable Ignacia Duran MD Primary Care Provider [phone] Ang Slade MD Unavailable +[phone] Carlos Joyner MD Unavailable +[phone] Annalise Orta PA-C Unavailable [phone] Ang Slade MD Unavailable +[phone] Lakshmi Wilhelm-C Unavailable [phone] Heladio Willoughby MD Primary Care Provider [phone] Heladio Willoughby MD Unavailable Alissa Perez PA-C Unavailable [phone] LaLakshmi morales-C Unavailable [phone] Aidee Valero PA-C Unavailable [phone] Carlos Joyner MD Unavailable [phone] Jadon Floyd MD Unavailable [phone] Cayden Bejarano MD Unavailable Encounter Details Date Type Department Care Team (Late st Contact Info) Description 10/12/2021 MyC Medical Advice [facility] Preoperative Assessment Center [address] 5th [place] [address] Tanisha Coe PA-C [address] [place] [address] Social History Tobacco Use Types Packs/Day Years [...] [facility] [address] 3rd [place] [address] Jadon Floyd MD [address] [place] [address] 758325 03/23/2025 12:[address] [facility] Imaging [address] [employer] [address] [place] [address] Cayden Bejarano MD [address] [place] [address] [address] [place] [address] 03/23/2025 1:30 PM CDT Hospital Encounter [facility] [address] [address] [place] [address] Cayden Bejarano MD [address] [place] [address] [address] [place] [address] 03/25/2025 10:20 AM CDT Virtual Visit [facility] Sports Medicine Clinic [address] [place] [address] [place] [address] [place] [address] 04/04/2025 12:00 PM LAND RECLAMATION SPECIALIST Office Visit [facility] Sleep [facility] [place] [address] [place] [address] Sugey Mccoy APRN [facility] [address] [place], [place] [address]E [address] [place], [place] 75[address] 05/30/2025 10:20 AM LAND RECLAMATION SPECIALIST [facility]ointment [facility] Imaging [address] [employer] [address] [employer] [address] [place] [address] Carlos Joyner MD [address] [place] [address] 05/31/2025 2:00 PM LAND RECLAMATION SPECIALIST Virtual Visit [facility] Urology [facility] [place] [address] [place] [address] 4th [place] [address] Carlos Joyner MD [address] [place] [address] 228165 07/25/2025 11:00 AM LAND RECLAMATION SPECIALIST Office Visit [address] [address] [place] [address] [place] [address] documented as of this encounter Visit Diagnoses Not on filedocumented in this encounter Additional Health Concerns Infection Onset Date Last Indicated Resolved Time MRSA Comment:Added from external infection. Pt has had Staph infections but never MRSA from Care everywhere chart review. Removing MRSA 9.14.23 06/17/2019 02/06/2023 9:41 AM C DT documented as of this encounter Care Teams Electric Furnace Operator Relationship Specialty Start Date End Date Ignacia Duran MD PCP - General Pediatrics 01/20/20 03/04/23 [place] [address] [place] [address] PCP - General 03/05/23 Carlos Joyner MD 9 [place] [address] Urology 12/09/19 Jadon Murray MD [facility] 2530 [facility] 550 [place] [address] Referring Physician Pediatric Surgery 12/09/19 Maru Villagomez, RN Registered Nurse 12/10/19 Ang Slade MD [address] [address] Urology 04/24/20 Carlos Joyner MD [address] [place] [address] Assigned Surgical Provider 12/24/20 Annalise Orta PA-C [address] [place] [address] Assigned Cancer Care Provider 05/13/21 11/01/22 Ang Slade MD 420 [facility] 394 [place] [address] Urology 12/18/22 Lakshmi Wilhelm PA-C [address] [place] [address] Physician Coffee Plantation Worker Urology 02/03/23 [place] [address] [place] [address] Assigned PCP 02/06/23 Alissa Perez PA-C [address] [place] [address] Physician Coffee Plantation Worker Surgery 09/04/23 Lakshmi Wilhelm PA-C [address] [place] [address] Physician Coffee Plantation Worker Urology 09/16/23 Aidee Valero PA-C [address] [place] [address] Assigned Musculoskeletal Provider 04/17/24 02/14/25 Carlos Joyner MD [address] [place] [address] Urology 01/26/25 Jadon Floyd MD [address] [place] [address] 083015 Physician Physical Medicine and Rehabilitation 01/31/25 [place] [address] [place] [address] Assigned Musculoskeletal Provider 02/15/25 Tanisha Marlow 4120 [facility] [address] 03/30/24 documented as of this encounter
--- OUTSIDE RECORDS SUMMARY | 2025-02-27 02:00 | XMS_ITS | Encounter Summary ---
Author Organization [place] Address [address] [place] [address] Care Team Providers Care Auto Club Travel Counselor Name Role Phone Carlos Joyner MD Unavailable [phone] Jadon Murray MD Unavailable [phone] Maru Villagomez RN Unavailable Unavailable Ignacia Duran MD Primary Care Provider [phone] Ang Slade MD Unavailable [phone] Carlos Joyner MD Unavailable +[phone] Annalise Orta PA-C Unavailable [phone] Ang Slade MD Unavailable [phone] Lakshmi Wilhelm-C Unavailable [phone] Heladio Willoughby MD Primary Care Provider [phone] Heladio Willoughby MD Unavailable Alissa Perez PA-C Unavailable [phone] LaLakshmi morales-C Unavailable [phone] Aidee Valero PA-C Unavailable [phone] Carlos Joyner MD Unavailable [phone] Jadon Floyd MD Unavailable [phone] Cayden Bejarano MD Unavailable Encounter Details Date Type Department Care Team (Late st Contact Info) Description 12/18/2021 MyC Medical Advice [facility] Urology Clinic [address] 4th [place] [phone] Carlos Joyner MD [address] [place] [address] Social History Tobacco Use Types Packs/Day Years [...] [facility] [address] 3rd [place] [address] Jadon Floyd MD [address] [place] [address] 03/23/2025 12:45 PM CDT Appointment [facility] Specialty [facility] Imaging [address] [facility] [address] [place] [address] [place] [address] [address] [place] [address] 03/23/2025 1:30 PM CDT Hospital Encounter [facility] Specialty [facility] Imaging [address] [place] [address] [place] [address] [place] [address] [place] [address] 03/25/2025 10:20 AM CDT Virtual Visit [facility] Sports Medicine [facility] [address] [place] [facility] [address] [place] [address] [place] [address] [place] [address] 04/04/2025 12:00 PM MARKETING PROJECT MANAGER Office Visit [facility] Sleep Center [place] [address] [facility] [place] [address] Sugey Mccoy APRN [facility] [address] [place] [address] [address] [place] [address] 05/30/2025 10:20 AM MARKETING PROJECT MANAGER Appointment [facility] Imaging [address] [place] [facility] [address] [place] [address] Carlos Joyner MD [address] [place] [address] 05/31/2025 2:00 PM MARKETING PROJECT MANAGER Virtual Visit [facility] Urology Clinic [address] 4th [place] [address] Carlos Joyner MD [address] [place] [address] 242545 07/25/2025 11:00 AM MARKETING PROJECT MANAGER Office Visit [facility] [address] [place] [address] [place] [address] [place] [address] documented as of this encounter Visit Diagnoses Not on filedocumented in this encounter Additional Health Concerns Infection Onset Date Last Indicated Resolved Time MRSA Comment:Added from external infection. Pt has had Staph infections but never MRSA from Care everywhere chart review. Removing MRSA 9.14.06/17/2019 02/06/2023 9:41 AM C DT documented as of this encounter Care Teams Auto Club Travel Counselor Relationship Specialty Start Date End Date Ignacia Duran MD PCP - General Pediatrics 01/20/20 03/04/23 [place] [address] [place] [address] PCP - General 03/05/23 Carlos Joyner MD 9 [place] [address] Urology 12/09/19 Jadon Murray MD [facility] 2530 [facility] 550 [place] [address] Referring Physician Pediatric Surgery 12/09/19 Maru Villagomez, RN Registered Nurse 12/10/19 Ang Slade MD [address] [place] [address] 394 [place], [place] 982295 Urology 04/24/20 Carlos Joyner MD [address] [place] [address] 323475 Assigned Surgical Provider 12/24/20 Annalise Orta PA-C 5200 [place] [address] Assigned Cancer Care Provider 05/13/21 11/01/22 Ang Slade MD [address] [place] [address] Urology 12/18/22 Laskhmi Wilhelm PA-C [address] [place] [address] Physician Light Out Examiner Urology 02/03/23 [place] [address] [place] [address] Assigned PCP 02/06/23 Alissa Perez PA-C [address] [place] [address] Physician Light Out Examiner Surgery 09/04/23 Lakshmi Wilhelm PA-C [address] [place] [address] Physician Light Out Examiner Urology 09/16/23 Aidee Valero PA-C [address] [place] [address] Assigned Musculoskeletal Provider 04/17/24 02/14/25 Carlos Joyner MD [address] [place] [address] Urology 01/26/25 Jadon Floyd MD [address] [place] [address] 888615 Physician Physical Medicine and Rehabilitation 01/31/25 [place] [address] [place], [place] 019[address] Assigned Musculoskeletal Provider 02/15/25 Tanisha Marlow [address] [place] [address] 03/30/24 documented as of this encounter
--- OUTSIDE RECORDS SUMMARY | 2025-02-27 02:00 | XMS_ITS | Patient Health Record ---
Author Organization [facility] Address [facility] [address] [place] [address] Care Team Providers Care Aerial Photographer Name Role Phone Ignacia Duran MD Primary Care Provider ADOLFO PAZ MD Reason For Referral No Information Medications Medication SIG (Take, Route, Fr equency, Duration) Notes Start Date End Date Status Gentamicin Sulfate 40 MG/ML 30ML QHS Intravesically BID; Duration: 30 days 12/30/2019 Active Problems Problem Type SNOMED Code ICD Code Onset Dates Problem Status W/U Status Risk Notes Problem Neurogenic bladder (111971634) Neurogenic bladder (N31.9) Active confirmed Problem Hydrocephalus (236074100) Hydrocephalus (G91.9) Active confirmed Problem Horseshoe kidney (37920459) 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 Problem Acute pyonephrosis (492297932) Acute pyonephrosis (N13.6) Active confirmed Problem Obesity (105261900) Obesity (BMI 30-39.9) (E66.9) Active confirmed Problem Lumbar spina bifida with hydrocephalus (731583489) Spina bifida of lumbosacral region with 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) Active confirmed Problem Acute pyelonephritis (90190601) Acute pyelonephritis (N10) Active confirmed Problem Sepsis (35691255) Sepsis, due to unspecified organism (A41.9) Active confirmed Problem Kidney stone (76719905) Bilateral nephrolithiasis (N20.0) Active confirmed Plan Of Treatment Pending Test Test Name Order Date UDS- Flow, ru, EMG, CMG w/UA/UC and mario tion 12/02/2019 Insurance Providers Payer Name Payer Address Payer Phone Subscriber Number Group Number Insured Name Patient Relationship to Insured Coverage Start Date Coverage End Date [facility] [address] [address] [place] [address] [id number] Fe Escudero Child - Insured has Financial Responsibility [facility] [address] [address] [place] [address] [id number] Laina Escudero Self - patient is the insured
--- OUTSIDE RECORDS SUMMARY | 2025-02-27 02:00 | XMS_ITS | Encounter Summary ---
Author Organization [facility] Address [address] [place] [address] Care Team Providers Care Science Manager Name Role Phone Carlos Joyner MD Unavailable [phone] Jadon Murray MD Unavailable [phone] Maru Villagomez RN Unavailable Unavailable Ang Slade MD Unavailable [phone] Carlos Joyner MD Unavailable [phone] Ang Slade MD Unavailable [phone] Lakshmi Wilhelm-C Unavailable [phone] Heladio Willoughby MD Primary Care Provider [phone] Heladio Willoughby MD Unavailable Alissa Perez PA-C Unavailable [phone] Lakshmi Wilhelm-C Unavailable [phone] Aidee Valero PA-C Unavailable [phone] Carlos Joyner MD Unavailable +[phone] Jadon Floyd MD Unavailable [phone] Cayden Bejarano MD Unavailable Encounter Details Date Type Department Care Team (Late st Contact Info) Description 09/18/2023 [facility] Urology [place] 9[address]29 [facility] 4th [place] [address] Carlos Joyner MD [address] [place] [address] 075655 Social History Tobacco Use Types Packs/Day Years [...] [facility] [address]rd [place] [address] Jadon Floyd MD [address] [place] [address] 03/23/2025 12:45 PM CDT Appointment [facility] [address] [facility] [address] [place] [address] [place] [address] [place] [address] 03/23/2025 1:30 PM CDT Hospital Encounter [facility] [address] [facility] [address] [place] [address] [place] [address] [place] [address] 03/25/2025 10:20 AM CDT Virtual Visit [facility] Sports Medicine [facility] [address] [place] [address] [address] [place] [address] [place] [address] [place] [address] 04/04/2025 12:00 PM VEHICLE DISMANTLER Office Visit [facility] [address] [place] [address] Sugey Mccoy, MOVEMAN [address] [address] 05/30/2025 10:20 AM VEHICLE DISMANTLER Appointment [facility] [address] [facility] [address] [place] [address] Carlos Joyner MD [address] [place] [address] 460555 05/31/2025 2:00 PM VEHICLE DISMANTLER Virtual Visit [facility] [address]th [place] [address] Carlos Joyner MD 909 [place] [address] 07/25/2025 11:00 AM VEHICLE DISMANTLER Office Visit [facility] [address] [place] [address] [place] [address] [place], [place] 3797368 documented as of this encounter Visit Diagnoses Not on filedocumented in this encounter Care Teams Science Manager Relationship Specialty Start [place] [address] [address] [place], [place] 7356168 PCP - General 03/05/23 Carlos Joyner MD [address] [place] [address] Urology 12/09/19 Jadon Murray MD [facility] [address] [address] Referring Physician Pediatric Surgery 12/09/19 Maru Villagomez, OTILIO Registered Nurse 12/10/19 Ang Slade MD [address] [place] [address] Urology 04/24/20 Carlos Joyner MD [address] [place] [address] Assigned Surgical Provider 12/24/20 Ang Slade MD [address] [place] [address] 768[address] Urology 12/18/22 Lakshmi Wilhelm PA-C [address] [place] [address]56 Physician Contract Administration Specialist Urology 02/03/23 [place] [address] [place] [address] Assigned PCP 02/06/23 Alissa Perez PA-C [address] [place] [address] Physician Contract Administration Specialist Surgery 09/04/23 Lakshmi Wilhelm PA-C [address] [place] [address] Physician Contract Administration Specialist Urology 09/16/23 Aidee Valero PA-C [address] [place] [address] Assigned Musculoskeletal Provider 04/17/24 02/14/25 Carlos Joyner MD [address] [place] [address] Urology 01/26/25 Jadon Floyd MD [address] [place] [address] 331535 Physician Physical Medicine and Rehabilitation 01/31/25 [place] [address] [place] [address] Assigned Musculoskeletal Provider 02/15/25 Tanisha Marlow 4120 [facility] [address] 03/30/24 documented as of this encounter
--- OUTSIDE RECORDS SUMMARY | 2025-02-27 02:00 | XMS_ITS | Encounter Summary ---
Author Organization [place] Address [address] [place] [address] Care Team Providers Care Auditor Supervisor Name Role Phone Carlos Joyner MD Unavailable + [phone] Jadon Murray MD Unavailable +[phone] Maru Villagomez RN Unavailable Unavailable Ang Slade MD Unavailable +- [phone] Carlos Joyner MD Unavailable + [phone] Ang Slade MD Unavailable +- [phone] Lakshmi Wilhelm-C Unavailable +[phone] Heladio Willoughby MD Primary Care Provider +[phone] Heladio Willoughby MD Unavailable Alissa Perez PA-C Unavailable [phone] Lakshmi Wilhelm-C Unavailable +- [phone] Aidee Valero PA-C Unavailable +[phone] Carlos Joyner MD Unavailable + [phone] Jadon Floyd MD Unavailable +[phone] Cayden Bejarano MD Unavailable Encounter Details Date Type Department Care Team (Late st Contact Info) Description 08/18/2023 [facility] [address] [address] Conner, Analisa Social History Tobacco [...] Description 03/03/2025 9:00 AM CDT Office Visit [facility] [address] [address] Jadon Floyd MD [address] [place] [address] 629175 03/23/2025 12:45 PM CDT Appointment [facility] [address] [facility] [address] [place] [address] [place] [address] [place] [address] 03/23/2025 1:30 PM CDT Hospital Encounter [facility] [address] [facility] [address] [place] [address] [place] [id number] [place] [address] [address] [place] [address] 03/25/2025 10:20 AM CDT Virtual Visit [facility] Sports Medicine [facility] [address] [place] [address] [address] [place] [address] [place] [address] [place] [address] 04/04/2025 12:00 PM ENDODONTICS DENTIST Office Visit [facility] Sleep [address] [phone] Sugey Mccoy, COMMERCIAL COLLECTIONS SPECIALIST [address] 529[address] 05/30/2025 10:20 AM ENDODONTICS DENTIST Appointment [facility] [address] [facility] [address] [place] [address] Carlos Joyner MD [address] [place] [address] [phone] 05/31/2025 2:00 PM ENDODONTICS DENTIST Virtual Visit [facility] [address] 4th [place] [address] Carlos Joyner MD [address] [place] [address] [id number] 07/25/2025 11:00 AM ENDODONTICS DENTIST Office Visit [facility] [place] [address] [place] [phone] [place] [address] [address] [place] [phone] documented as of this encounter Visit Diagnoses Not on filedocumented in this encounter Care Teams Auditor Supervisor Relationship Specialty Start [place] [address] [place] [address] PCP - General 03/05/23 Carlos Joyner MD [address] [place] [address] 88296 Urology 12/09/19 Jadon Murray MD [facility] 2530 550 [place] [address] Referring Physician Pediatric Surgery 12/09/19 Maru Villagomez, RN Registered Nurse 12/10/19 Ang Slade MD [address] [place] [address] 75482 Urology 04/24/20 Carlos Joyner MD [address] [place] [address] 430065 Assigned Surgical Provider 12/24/20 Ang Slade MD [address] [address] Urology 12/18/22 Lakshmi Wilhelm PA-C [address] [place] [address] 19400 Physician Ship Liner Urology 02/03/23 [place] [address] [place] [address] Assigned PCP 02/06/23 Alissa Perez PA-C [address] [place] [address] 36939 Physician Ship Liner Surgery 09/04/23 Lakshmi Wilhelm PA-C [address] [place] [address] 60092 Physician Ship Liner Urology 09/16/23 Aidee Valero PA-C [address] [place] [address] 20030 Assigned Musculoskeletal Provider 04/17/24 02/14/25 Carlos Joyner MD [address] [place] [address] 266855 Urology 01/26/25 Jadon Floyd MD [address] [place] [address] 81676 Physician Physical Medicine and Rehabilitation 01/31/25 [place] [address] [place] [address] Assigned Musculoskeletal Provider 02/15/25 Tanisha Marlow 4120 [facility] [address] (work) 03/30/24 documented as of this encounter
--- OUTSIDE RECORDS SUMMARY | 2025-02-27 02:00 | XMS_ITS | Encounter Summary ---
Author Organization [place] Address [address] [place] [address] Care Team Providers Care Quality Officer Name Role Phone Carlos Joyner MD Unavailable +[phone] Jadon Murray MD Unavailable +[phone] Maru Villagomez RN Unavailable Unavailable Ignacia Duran MD Primary Care Provider +[phone] Ang Slade MD Unavailable +[phone] Carlos Joyner MD Unavailable +[phone] Annalise Orta PA-C Unavailable +[phone] Ang Slade MD Unavailable +[phone] Lakshmi Wilhelm-C Unavailable +[phone] Heladio Willoughby MD Primary Care Provider +[phone] Heladio Willoughby MD Unavailable Alissa Perez PA-C Unavailable [phone] LaLakshmi morales-C Unavailable +[phone] Aidee Valero PA-C Unavailable +[phone] Carlos Joyner MD Unavailable +[phone] Jadon Floyd MD Unavailable [phone] Cayden Bejarano MD Unavailable Encounter Details Date Type Department Care Team (Late st Contact Info) Description 11/07/[address] [facility] [address] 4th [place] [address] Analisa Palacio RN Social History Tobacco Use [...] [facility] [address] 3rd [place] [address] Jadon Floyd MD [address] [place] [address] 104435 03/23/2025 12:45 PM CDT Appointment [facility] [address] [facility] [address] [place] [phone] Cayden Bejarano MD [address] [place], [place] [address] [place] [address] 03/23/2025 1:30 PM CDT Hospital Encounter [facility] [address] [place] [address] [place]den [place]jar[place] [address] [place] [address] [address] [place] [address] 03/25/2025 10:20 AM CDT Virtual Visit [facility] [place] [address] [place] [address] [place] [address] [place] [address] 04/04/2025 12:00 PM PUBLIC HEALTH INSPECTOR Office Visit [facility] [place] [address] [place] [address] Sugey Mccoy APRN [facility] [address] [place], [place] 5[address]64 05/30/2025 10:20 AM PUBLIC HEALTH INSPECTOR Appointment [facility] [address] [place] [address] Carlos Joyner MD [address] [place] [address] 440415 05/31/2025 2:00 PM PUBLIC HEALTH INSPECTOR Virtual Visit [facility] [place] 909 [facility] 4th [place] [address] Carlos Joyner MD [address] [place] [address] 07/25/2025 11:00 AM PUBLIC HEALTH INSPECTOR Office Visit [facility] [address] [place] [address] [place] [address] [place] [address] documented as of this encounter Visit Diagnoses Not on filedocumented in this encounter Additional Health Concerns Infection Onset Date Last Indicated Resolved Time MRSA Comment:Added from external infection. Pt has had Staph infections but never MRSA from Care everywhere chart review. Removing MRSA 9.14.23 06/17/2019 02/06/2023 9:41 AM C DT documented as of this encounter Care Teams Quality Officer Relationship Specialty Start Date End Date Ignacia Duran MD PCP - General Pediatrics 01/20/20 03/04/23 [place] [address] [place] [address] PCP - General 03/05/23 Carlos Joyner MD [address] [place] [address] Urology 12/09/19 Jadon Murray MD [facility] [address] [address] Referring Physician Pediatric Surgery 12/09/19 Maru Villagomez, RN Registered Nurse 12/10/19 Ang Slade MD [address] [place] [address] 22658 Urology 04/24/20 Carlos Joyner MD [address] [place] [address]26 Assigned Surgical Provider 12/24/20 Annalise Orta PA-C 5200 [place] [address] Assigned Cancer Care Provider 05/13/21 11/01/22 Ang Slade MD [address] [address] Urology 12/18/22 Lakshmi Wilhelm PA-C [address] [place] [address] 45265 Physician Accountant Helper Urology 02/03/23 [place] [address] [facility] [place] [address] Assigned PCP 02/06/23 Alissa Perez PA-C [address] [place] [address] 648825 Physician Accountant Helper Surgery 09/04/23 Lakshmi Wilhelm PA-C [address] [place] [address] 48225 Physician Accountant Helper Urology 09/16/23 Aidee Valero PA-C [address] [place] [address] 072905 Assigned Musculoskeletal Provider 04/17/24 02/14/25 Carlos Joyner MD [address] [place] [address] 819845 Urology 01/26/25 Jadon Floyd MD [address] [place] [address] 618765 Physician Physical Medicine and Rehabilitation 01/31/25 [place] [address] [place] [address] Assigned Musculoskeletal Provider 02/15/25 Tanisha Marlow 4120 [facility] [address] 03/30/24 documented as of this encounter
--- OUTSIDE RECORDS SUMMARY | 2025-02-27 02:00 | XMS_ITS | Encounter Summary ---
Author Organization [place] Address [address] [facility] [place] [address] Care Team Providers Care Partner Management Consultant Name Role Phone Carlos Joyner MD Unavailable + [phone] Jadon Murray MD Unavailable +[phone] Maru Villagomez RN Unavailable Unavailable Ang Slade MD Unavailable +[phone] Carlos Joyner MD Unavailable + [phone] Ang Slade MD Unavailable +- [phone] Lakshmi Wilhelm-C Unavailable +[phone] Heladio Willoughby MD Primary Care Provider +[phone] Heladio Willoughby MD Unavailable Alissa Perez PA-C Unavailable [phone] Lakshmi Wilhelm-C Unavailable +[phone] Aidee Valero PA-C Unavailable +[phone] Carlos Joyner MD Unavailable + [phone] Jadon Floyd MD Unavailable + [phone] Cayden Bejarano MD Unavailable Encounter Details Date Type Department Care Team (Late st Contact Info) Description 03/27/2023 MyC Medical Advice UR PREOP/PHASE II 2450 [place] [address] Lisette Salinas, OTILIO Social History [...] [facility] [address]rd [place] [address] Jadon Floyd MD 909 [place] [address] 03/23/2025 12:[address] [facility] [address] [facility] [address] [place] [address] [place] [address] [place] [address] 03/23/2025 1:30 PM CDT Hospital Encounter [facility] [address] [facility] [address] [place] [address] [place]den [place] [address] [place] [address] [address] [place] [address] 03/25/2025 10:20 AM CDT Virtual Visit [facility] [place] [address] [place] [address] [address] [place] [address] [place] [address] [place] [address] 04/04/2025 12:00 PM TRANSPORT MEDIC Office Visit [address] [phone] Sugey Mccoy, MATHEMATICS DEPARTMENT CHAIR [address] [address] 05/30/2025 10:20 AM TRANSPORT MEDIC [facility]oint[address] [facility] [address] [facility] [address] [place] [address] Carlos Joyner MD 909 [place] [address] 05/31/2025 2:00 PM TRANSPORT MEDIC Virtual Visit [facility] [place] 909 [facility] 4th [place] [address] Carlos Joyner MD [address] [place] [address] 279035 07/25/2025 11:00 AM TRANSPORT MEDIC Office Visit [facility] [address] [facility] [place] [address] [place] [address] [place], [place] 8233068 documented as of this encounter Visit Diagnoses Not on filedocumented in this encounter Care Teams Partner Management Consultant Relationship Specialty Start [place] [address] [address] [place], [place] 1042568 PCP - General 03/05/23 Carlos Joyner MD [address] [place] [address] 866495 Urology 12/09/19 Jadon Murray MD [facility] [address] [address] Referring Physician Pediatric Surgery 12/09/19 Maru Villagomez, RN Registered Nurse 12/10/19 Ang Slade MD [address] [place] [address] 394 [place], [place] 317035 Urology 04/24/20 Carlos Joyner MD [address] [place] [address] Assigned Surgical Provider 12/24/20 Ang Slade MD [address] [place] [address] 050945 Urology 12/18/22 Lakshmi Wilhelm PA-C [address] [place] [address] 306935 Physician Application Infrastructure Engineer Urology 02/03/23 [place] [address] [place] [address] Assigned PCP 02/06/23 Alissa Perez PA-C [address] [place] [address] 57371 Physician Application Infrastructure Engineer Surgery 09/04/23 Lakshmi Wilhelm PA-C [address] [place] [address]239 Physician Application Infrastructure Engineer Urology 09/16/23 Aidee Valero PA-C [address] [place] [address] 410785 Assigned Musculoskeletal Provider 04/17/24 02/14/25 Carlos Joyner MD [address] [place] [address] 516955 Urology 01/26/25 Jadon Floyd MD [address] [place] [address] 798775 Physician Physical Medicine and Rehabilitation 01/31/25 [place] [address] [place] [address] Assigned Musculoskeletal Provider 02/15/25 Tanisha Marlow [address] [place] [place] [address] 03/30/24 documented as of this encounter
--- OUTSIDE RECORDS SUMMARY | 2025-02-27 02:00 | XMS_ITS | Encounter Summary ---
Author Organization [place] Address [address] [place] [address] Care Team Providers Care Nurse Executive Name Role Phone Carlos Joyner MD Unavailable +[phone] Jadon Murray MD Unavailable +[phone] Maru Villagomez RN Unavailable Unavailable Ignacia Duran MD Primary Care Provider [phone] Ang Slade MD Unavailable +[phone] Carlos Joyner MD Unavailable +[phone] Annalise Orta PA-C Unavailable +[phone] Ang Slade MD Unavailable +[phone] Lakshmi Wilhelm-C Unavailable +[phone] Heladio Willoughby MD Primary Care Provider +[phone] Heladio Willoughby MD Unavailable Alissa Perez PA-C Unavailable [phone] LaLakshmi morales-C Unavailable +[phone] Aidee Valero PA-C Unavailable +[phone] Carlos Joyner MD Unavailable +[phone] Jadon Floyd MD Unavailable [phone] Cayden Bejarano MD Unavailable Encounter Details Date Type Department Care Team (Late st Contact Info) Description 11/14/2021 MyC Medical Advice [facility] [address] 4th [place] [address] Analisa Palacio RN Social History Tobacco Use [...] [facility] [address] 3rd [place] [address] Jadon Floyd MD [address] [place] [address] 987365 03/23/2025 12:45 PM CDT Appointment [facility] [address] [facility] [address] [place] [address] Cayden Bejarano MD [address] [place], [place] [address]A[address] [place] [address] 03/23/2025 1:30 PM CDT Hospital Encounter [facility] [address] [place] [address] [place] [address] [place] [address] 03/25/2025 10:20 AM CDT Virtual Visit [facility] [place] [address] [place] [address] [place] [address] [place] [address] 04/04/2025 12:00 PM NEUROLOGY EPILEPSY PHYSICIAN Office Visit [facility] [place] [address] [place] [address] Sugey Mccoy APRN [facility] [address] [place], [place] 6[address]44 05/30/2025 10:20 AM NEUROLOGY EPILEPSY PHYSICIAN Appointment [facility] [address] [place] [address] Carlos Joyner MD [address] [place] [address] 132125 05/31/2025 2:00 PM NEUROLOGY EPILEPSY PHYSICIAN Virtual Visit [facility] [place] 909 [facility] 4th [place] [address] Carlos Joyner MD [address] [place] [address] 07/25/2025 11:00 AM NEUROLOGY EPILEPSY PHYSICIAN Office Visit [facility] [address] [place] [address] [place] [address] [place] [address] documented as of this encounter Visit Diagnoses Not on filedocumented in this encounter Additional Health Concerns Infection Onset Date Last Indicated Resolved Time MRSA Comment:Added from external infection. Pt has had Staph infections but never MRSA from Care everywhere chart review. Removing MRSA 9.14.23 06/17/2019 02/06/2023 9:41 AM C DT documented as of this encounter Care Teams Nurse Executive Relationship Specialty Start Date End Date Ignacia Duran MD PCP - General Pediatrics 01/20/20 03/04/23 [place] [address] [place] [address] PCP - General 03/05/23 Carlos Joyner MD [address] [place] [address] Urology 12/09/19 Jadon Murray MD [facility] [address] [address] Referring Physician Pediatric Surgery 12/09/19 Maru Villagomez, RN Registered Nurse 12/10/19 Ang Slade MD [address] [place] [address]26 Urology 04/24/20 Carlos Joyner MD [address] [place] [address] 75209 Assigned Surgical Provider 12/24/20 Annalise Orta PA-C 5200 [place] [address] Assigned Cancer Care Provider 05/13/21 11/01/22 Ang Slade MD [address] [address] Urology 12/18/22 Lakshmi Wilhelm PA-C [address] [place] [address] 91675 Physician Hardwood Floor Installer Urology 02/03/23 [place] [address] [facility] [place] [address] Assigned PCP 02/06/23 Alissa Perez PA-C [address] [place] [address] 002365 Physician Hardwood Floor Installer Surgery 09/04/23 Lakshmi Wilhelm PA-C [address] [place] [address]184 Physician Hardwood Floor Installer Urology 09/16/23 Aidee Valero PA-C [address] [place] [address] 378185 Assigned Musculoskeletal Provider 04/17/24 02/14/25 Carlos Joyner MD [address] [place] [address] 514695 Urology 01/26/25 Jadon Floyd MD [address] [place] [address] 694365 Physician Physical Medicine and Rehabilitation 01/31/25 [place] [address] [place] [address] Assigned Musculoskeletal Provider 02/15/25 Tanisha Marlow 4120 [facility] [address] 03/30/24 documented as of this encounter
--- OUTSIDE RECORDS SUMMARY | 2025-02-27 02:00 | XMS_ITS | Encounter Summary ---
Author Organization [place] Address [address] [place] [address] Care Team Providers Care Anesthesiologist Attending Name Role Phone Carlos Joyner MD Unavailable +[phone] Jadon Murray MD Unavailable [phone] Maru Villagomez RN Unavailable Unavailable Ignacai Duran MD Primary Care Provider +[phone] Ang Slade MD Unavailable +[phone] Carlos Joyner MD Unavailable +[phone] Annalise Orta PA-C Unavailable +[phone] Ang Slade MD Unavailable +[phone] Lakshmi Wilhelm-C Unavailable +[phone] Heladio Willoughby MD Primary Care Provider [phone] Heladio Willoughby MD Unavailable Alissa Perez PA-C Unavailable [phone] LaLakshmi morales-C Unavailable +[phone] Aidee Valero PA-C Unavailable +[phone] Carlos Joyner MD Unavailable +[phone] Jadon Floyd MD Unavailable [phone] Cayden Bejarano MD Unavailable Encounter Details Date Type Department Care Team (Late st Contact Info) Description 12/05/2021 MyC Medical Advice [facility] U[facility] Clinic [address] [phone] Janay Seo Social History Tobacco Use Types [...] [facility] [address] [address] Jadon Floyd MD [address] [place] [address] 821045 03/23/2025 12:45 PM CDT Appointment [facility] [address] [place] [address] [place] [address] [facility] [address] [place] [address] 03/23/2025 1:30 PM CDT Hospital Encounter [facility] [address] [place] [address] [place] [address] [address] [place] [address] 03/25/2025 10:20 AM CDT Virtual Visit [facility] Medicine [facility] [place] [address] [place] [address] [place] [address] [place] [address] 04/04/2025 12:00 PM EL TEACHER Office Visit [facility] [place] [address] [place] [address] Sugey Mccoy APRN [facility] [address] [place], [place] 275784 05/30/2025 10:20 AM EL TEACHER Appointment [facility] [address] [place] [address] Carlos Joyner MD [address] [place] [address] 952745 05/31/2025 2:00 PM EL TEACHER Virtual Visit [facility] Urology [facility] [place] [address] [place] [address] 4th [place] [address] Carlos Joyner MD [address] [place] [address] 904935 07/25/2025 11:00 AM EL TEACHER Office Visit [facility] [address] [place] [address] [place] [address] [place] [address] documented as of this encounter Visit Diagnoses Not on filedocumented in this encounter Additional Health Concerns Infection Onset Date Last Indicated Resolved Time MRSA Comment:Added from external infection. Pt has had Staph infections but never MRSA from Care everywhere chart review. Removing MRSA 9.14.23 06/17/2019 02/06/2023 9:41 AM C DT documented as of this encounter Care Teams Anesthesiologist Attending Relationship Specialty Start Date End Date Ignacia Duran MD PCP - General Pediatrics 01/20/20 03/04/23 [place] [address] [place] [address] PCP - General 03/05/23 Carlos Joyner MD [address] [place] [address] Urology 12/09/19 Jadon Murray MD [facility] [address] [address] Referring Physician Pediatric Surgery 12/09/19 Maru Villagomez, RN Registered Nurse 12/10/19 Ang Slade MD [address] [place] [address] Urology 04/24/20 Carlos Joyner MD [address] [place] [address] 61109 Assigned Surgical Provider 12/24/20 Annalise Orta PA-C 5200 [place] [address] Assigned Cancer Care Provider 05/13/21 11/01/22 Ang Slade MD [address] [address] Urology 12/18/22 Lakshmi Wilhelm PA-C [address] [place] [address] 47316 Physician Respiratory Therapy Aide Urology 02/03/23 [place] [address] [place] [address] Assigned PCP 02/06/23 Alissa Perez PA-C [address] [place] [address] 956195 Physician Respiratory Therapy Aide Surgery 09/04/23 Lakshmi Wilhelm PA-C [address] [place] [address] 804265 Physician Respiratory Therapy Aide Urology 09/16/23 Aidee Valero PA-C [address] [place] [address] 745315 Assigned Musculoskeletal Provider 04/17/24 02/14/25 Carlos Joyner MD [address] [place] [address] 071495 Urology 01/26/25 Jadon Floyd MD [address] [place] [address] 818945 Physician Physical Medicine and Rehabilitation 01/31/25 [place] [address] [place] [address] Assigned Musculoskeletal Provider 02/15/25 Tanisha Marlow 4120 [facility] [address] 03/30/24 documented as of this encounter
[2025-02-27 02:46] VITALS: BP 124/62; PULSE 113; RESP 20; TEMP 37.4; O2SAT 93
[2025-02-27 03:12] VITALS: BP 124/62; PULSE 113; RESP 20; TEMP 37.4
== END 2025-02-27 03:13 | disposition home or self-care (01) ==
PROVIDERS: Emergency Provider Emergency Medicine; PCP Pediatrics
DX: R50.9 Fever, unspecified (principal); J06.9 Acute upper respiratory infection, unspecified
CPT/HCPCS: 71045; 87631; 99283; 99285; A9270

== ENCOUNTER 2025-03-01 02:17 | Outpatient (CLI) | payer MEDICARE, MEDICAID, SELFPAY | END 2025-03-01 02:18 | disposition home or self-care (01) | LOC: AMB 03-02 10:50 | PROVIDERS: PCP Pediatrics; Visit Provider Family Medicine | DX: R06.02 Shortness of breath (principal); R53.1 Weakness; R50.9 Fever, unspecified | CPT/HCPCS: A0425; A0429 ==

== ENCOUNTER 2025-03-01 02:54 | Inpatient (IN) | payer MEDICARE, MEDICAID, SELFPAY ==
--- OUTSIDE RECORDS SUMMARY | 2025-01-18 10:07 | XMS_ITS | Encounter Summary ---
Author Organization [place] Address [address] [place] [address] Care Team Providers Care Supervising Producer Name Role Phone Carlos Joyner MD Unavailable [phone] Jadon Murray MD Unavailable [phone] Maru Villagomez RN Unavailable Unavailable Ang Slade MD Unavailable [phone] Carlos Joyner MD Unavailable [phone] Ang Slade MD Unavailable Lakshmi Wilhelm-C Unavailable [phone] Heladio Willoughby MD Primary Care Provider [phone] Heladio Willouhgby MD Unavailable Alissa Perez PA-C Unavailable [phone] Lakshmi Wilhelm-Juan A Unavailable [phone] Aidee Valero PA-C Unavailable [phone] Reason for Referral * Diagnostic Imaging CT Scan (Routine) - Closed Specialty Diagnoses / Procedures Referred By Contabran t Referred To Contact Radiology. Diagnoses Bilateral nephrolithiasis Procedures CT Abdomen Pelvis w/o Contrast Mary Jo Pineda MD [address] [place] [address] Phone: tel: fax: Referral ID Status Reason Start Date Expiration Date Visits Re quested Visits Authorized [id number] Closed 12/04/2024 12/04/2025 1 1 Reason for Visit * Diagnostic Imaging CT Scan (Routine) - Closed Specialty Diagnoses / Procedures Referred By Charli sylvester Referred To Contact Radiology. Diagnoses Bilateral nephrolithiasis Procedures CT Abdomen Pelvis w/o Contrast Mar yJo Pineda MD [address] [place] [address] Phone: tel: fax: Referral ID Status Reason Start Date Expiration Date Visits Re quested Visits Authorized [id number] Closed 12/04/2024 12/04/2025 1 1 Encounter Details Date Type Department Care Team (Latest Contact Info) Description 01/18/2025 10:07 AM CDT - 01/18/2025 11:59 PM CDT Hospital Encounter [facility] [address] [facility] [address] [place] [address] Mary Jo Pineda MD [address] [place] [phone] Bilateral nephrolithiasis Discharge Disposition: Home or Self Care Social [...] than three times a week 07/16/2024 Attends [employer] Not on file 07/16 Active Member of Clubs or Organizations Not on f ile 07/16/2024 Attends Club or Organization Meetings Not on antelmo e 07/16/2024 Marital Status Not on file 07/16/2024 PHQ-2 Answer Date Recorded PHQ-2 Score 0 09/13/2024 [facility] Occupat ional Health - Occupational Stress [...] 30 ML MISC USE TO FLUSH BLADDER 0 bisacodyl (DULCOLAX) 5 MG EC tablet 0 Refill(s), Maintenance 1 COMPOUNDED NON-CONTROLLED SUBSTANCE (CMPD RX) - PHARMACY TO MIX COMPOUNDED MEDICATIONIndication s:Recurrent UTI Instill 30 mL into the bladder via straight catheter once daily per provider instructions. 900 mL 11 5 cyclobenzaprine (FLEXERIL) 5 MG tablet Take 5 mg by mouth 3 times daily as needed for muscle spasms. docusate sodium (COLACE) 100 MG capsule Take 100 mg by mouth every evening Elastic Bandages & Supports (PATEL ELASTIC BANDAGE 4) MISC Apply 1 each topically 9 gentamicin (GARAMYCIN) 40 MG/ML injection 40 mg every 24 hours. 4 indapamide (LOZOL) 1.25 MG tabletIndications:Hy percalciuria Take 1 tablet (1.25 mg) by mouth every morning. 90 tablet 3 5 levonorgestrel (MIRENA) 52 MG (20 mcg/day) IUD 1 each by Intrauterine route once. MONOJECT HYPODERMIC NEEDLE 18G X 1 MISC USE TO FLUSH BLADDER 0 Multiple Vitamin (MULTI-VITAMINS) TABS Take 1 tablet by mouth every evening NEW MEDIndications:DUPIC ATE 480mg Gentamicin in one liter of Normal Saline. Instill 30 ml of gentamicin solution into bladder at bedtime 930 mL 11 1 NEW MEDIndications:Recur rent UTI 480 MG Gentamicin in 1 Liter 0.9 Normal Saline. Instill 60 mL of Gentamicin solution into bladder at HS 1800 mL 11 0 oxyBUTYnin (DITROPAN) 5 MG tabletIndications:Bl adder spasms Take 1 tablet (5 mg) by mouth 2 times daily. 180 tablet 2 5 polyethylene glycol (MIRALAX) 17 GM/Dose powderIndications:Bi lateral nephrolithiasis Take 17 g by mouth daily. 510 g 5 polyethylene glycol (MIRALAX) 17 GM/Dose powder See Instructions, 1-3 tsp as needed to maintain soft stools, # 527 g, 1 Refill(s), Maintenance, other 1 potassium chloride marcie ER (KLOR-CON M10) 10 MEQ CR tabletIndications:Ki dney stone Take 1 tablet (10 mEq) by mouth 2 times daily. 180 tablet 3 5 potassium chloride marcie ER (KLOR-CON M10) 10 MEQ CR tabletIndications:Hy percalciuria TAKE ONE TABLET BY MOUTH TWICE DAILY 90 tablet 5 potassium chloride ER (K-TAB) 20 MEQ CR tabletIndications:Hy percalciuria Take 1 tablet (20 mEq) by mouth daily 90 tablet 3 4 Saline Bacteriostatic (SODIUM CHLORIDE BACTERIOSTATIC) 0.9 % SOLN flushIndications:Rec urrent UTI Irrigate with 30 mLs as directed At Bedtime for 31 doses 930 mL 11 1 sennosides (SENOKOT) 8.6 MG tabletIndications:Bi lateral nephrolithiasis Take 1 tablet by mouth 2 times daily as needed for constipation. 100 tablet 5 sodium chloride 0.9%, bottle, 0.9 % irrigation Irrigate with 60 mLs as directed 2 times daily Instill 60 ml into bladder along with Gentamicin solution Vitamin D3 (VITAMIN D, CHOLECALCIFEROL,) 25 mcg (1000 units) tablet Take by mouth daily. Wound Dressings (MEDIHONEY CA ALGINATE 2X2) PADSIndications:Pres sure ulcer acquired in formerly [facility] Externally apply 1 each topically daily 10 each 3 documented as of this encounter Plan of Treatment Upcoming Encounters Date Type Department Care Team (Late st Contact Info) Description 03/03/2025 9:00 AM CDT Office Visit [facility] [address] [place] [address] Jadon Floyd MD [address] [place] [phone] 03/23/2025 12:45 PM CDT Appointment [facility] [address] [place] [address] [place] [address] [place] [address] 03/23/2025 1:30 PM CDT Hospital Encounter [facility] [address] [facility] [address] [place] [address] [place] [address] [place] [address] 03/25/2025 10:20 AM CDT Virtual Visit [facility] [place] [address] [facility] [address] [place] [address] [place] [address] [place] [address] 04/04/2025 12:00 PM NEWS GATHERING TECHNICIAN Office Visit [facility] [address] [phone] Sugey Mccoy, [address] [address] 05/30/2025 10:20 AM NEWS GATHERING TECHNICIAN Appointment [facility] [address] [facility] [address] [place] [phone] Carlos Joyner MD [address] [place] [address] 05/31/2025 2:00 PM NEWS GATHERING TECHNICIAN Virtual Visit [facility] [address]th [place] [phone] Carlos Joyner MD [address] [place] [address] 07/25/2025 11:00 AM NEWS GATHERING TECHNICIAN Office [facility] [place] [address] [facility] [place] [address] [place] [address] [facility] [place] [address] documented as of this encounter Procedures Procedure Name Priority Date/Time Associated Diagnosis Comments CT ABDOMEN PELVIS W/O CONTRAST Radiology After Discharge 01/18/2025 10:39 AM CDT Bilateral nephrolithiasis documented in this encounter Results * CT Abdomen Pelvis w/o Contrast (01/18/2025 10:39 AM CDT) Anatomical Region Laterality Modality Abdomen/Pelvis, SUBRAD CT ASCENCION DY, UMP CT ABDOMEN PELVIS, RAD CT Computed Tomography 01/18/2025 10:3 9 AM CDT Impressions 01/18/2025 11:05 AM CDT IMPRESSION: 1. Nephrolithiasis: Small nonobstructing stones bilaterally. 2. Mild bilateral hydronephrosis. 3. Partially kidney anomaly. 4. Ventricular peritoneal shunt catheter in place. 5. Thoracolumbar posterior spinal fixation. Narrative 01/18/2025 11:05 AM CDT EXAM: CT ABDOMEN PELVIS W/O CONTRAST LOCATION: [facility] DATE: 01/18/2025 INDICATION: Bilateral nephrolithiasis COMPARISON: None. TECHNIQUE: CT scan of the abdomen and pelvis was performed without IV contrast. Multiplanar reformats were obtained. Dose reduction techniques were used. CONTRAST: None. FINDINGS: A ventricular shunt catheter enters the peritoneal cavity in the right upper quadrant. Tubing is appears intact. No evidence for CSF pseudocyst. LOWER CHEST: Normal. HEPATOBILIARY: Normal noncontrast enhanced appearance. No apparent mass or bile duct dilatation. No calcified gallstones. PANCREAS: Normal. SPLEEN: Normal. ADRENAL GLANDS: Normal. 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 There is mild bilateral hydronephrosis. Mild cortical thinning of the left cortex. Several nonobstructing calcifications are identified bilaterally. There are approximately 3-4 calcifications in both right and left portions of the partially kidney, largest in the right lower pole measuring 9 mm. BOWEL: Normal. LYMPH NODES: Normal. VASCULATURE: Normal. PELVIC ORGANS: IUD in place. No pelvic mass or adenopathy. MUSCULOSKELETAL: There are stable postoperative changes of thoracolumbar posterior spinal fixation. Procedure Note Hattie Pate MD - 01/18/2025 EXAM: CT ABDOMEN PELVIS W/O CONTRAST LOCATION: [facility] DATE: 01/18/2025 INDICATION: Bilateral nephrolithiasis COMPARISON: None. TECHNIQUE: CT scan of the abdomen and pelvis was performed without IVcontrast. Multiplanar reformats were obtained. Dose reduction techniqueswere used. CONTRAST: None. FINDINGS: A ventricular shunt catheter enters the peritoneal cavity in theright upper quadrant. Tubing is appears intact. No evidence for CSFpseudocyst. LOWER CHEST: Normal. HEPATOBILIARY: Normal noncontrast enhanced appearance. No apparent mass orbile duct dilatation. No calcified gallstones. PANCREAS: Normal. SPLEEN: Normal. ADRENAL GLANDS: Normal. 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 Lower poles of thekidneys appear to be fused in the midline abdomen anterior to the spine.There is mild bilateral hydronephrosis. Mild cortical thinning of the leftcortex. Several nonobstructing calcifications are identified bilaterally. There are approximately 3- 4calcifications in both right and left portions of the partially kidney,largest in the right lower pole measuring 9 mm. BOWEL: Normal. LYMPH NODES: Normal. VASCULATURE: Normal. PELVIC ORGANS: IUD in place. No pelvic mass or adenopathy. MUSCULOSKELETAL: There are stable postoperative changes of thoracolumbarposterior spinal fixation. IMPRESSION: 1. Nephrolithiasis: Small nonobstructing stones bilaterally. 2. Mild bilateral hydronephrosis. 3. Partially kidney anomaly. 4. Ventricular peritoneal shunt catheter in place. 5. Thoracolumbar posterior spinal fixation. us Mary Jo Pineda MD IMG CT ORDERABLES Final Result documented in this encounter Visit Diagnoses Diagnosis Bilateral nephrolithiasis documented in this encounter Care Teams Supervising Producer Relationship Specialty Start [place] [address] [place] [address] PCP - General 03/05/23 Carlos Joyner MD [address] [place] [address] Urology 12/09/19 Jadon Murray MD [facility] [address] [facility] [address] [place] [address] Referring Physician Pediatric Surgery 12/09/19 Maru Villagomez, RN Registered Nurse 12/10/19 Ang Slade MD [address] [place] [address] Urology 04/24/20 Carlos Joyner MD [address] [place] [address] 607885 Assigned Surgical Provider 12/24/20 Ang Slade MD [address] [place] [address] [id number] Urology 12/18/22 Lakshmi Wilhelm PA-C [address] [place] [address] 832435 Physician Canvas Marker Urology 02/03/23 [place] [address] [place] [address] Assigned PCP 02/06/23 Alissa Perez PA-C [address] [place] [address] Physician Canvas Marker Surgery 09/04/23 Lakshmi Wilhelm PA-C [address] [place] [address] Physician Canvas Marker Urology 09/16/23 Aidee Valero PA-C [address] [place] [address] Assigned Musculoskeletal Provider 04/17/24 02/14/25 Tanisha Marlow [address] [facility] [address] 03/30/24 documented as of this encounter
--- OUTSIDE RECORDS SUMMARY | 2025-01-19 11:30 | XMS_ITS | Encounter Summary ---
Author Organization [place] Address [address] [place] [address] Care Team Providers Care Community Liaison Name Role Phone Carlos Joyner MD Unavailable [phone] Jadon Murray MD Unavailable [phone] Maru Villagomez RN Unavailable Unavailable Ang Slade MD Unavailable [phone] Carlos Joyner MD Unavailable [phone] Ang Slade MD Unavailable [phone] Lakshmi Wilhelm-C Unavailable [phone] Heladio Willoughby MD Primary Care Provider [phone] Heladio Willoughby MD Unavailable Alissa Perez PA-C Unavailable [phone] Lakshmi Wilhelm-C Unavailable [phone] Aidee Valero PA-C Unavailable [phone] Reason for Referral * Consultation (Priority: 1-2 Weeks) - Pending Review Specialty Diagnoses / Procedures Referred By Charli t Referred To Contact Diagnoses Pressure injury of left lower back, stage 2 (H) History of pressure injury of skin Paraplegia (H) [place] [address] [place] [address] Phone: tel: fax: Referral ID Status Reason Start Date Expiration Date V isits Requested Visits Authorized [id number] Pending Review 01/24/2025 01/24/2026 1 1 Question Answer Reason for Referral: Other My Clinical Question Is: Hx of spina bifida; T12 paraplegia, recurrent pressure wounds. Scheduling Instructions: [facility] will call you to coordinate your care as prescribed by your provider. A manufacturer representative will call you within 2 business days to help schedule your appointment, or you may contact the Warp Dresser Director Of Pharmacy at . Comments Please be aware that coverage of these services is subject to the terms and limitations of your health insurance plan. Call member services at your health plan with any benefit or coverage questions. [facility] will call you to coordinate your care as prescribed by your provider. A manufacturer representative will call you within 2 business days to help schedule your appointment, or you may contact the Warp Dresser Director Of Pharmacy at . * Consultation (Routine) - Pending Review Specialty Diagnoses / Procedures Referred By Charli sylvester Referred To Contact Diagnoses [place] [address] [place] [address] Phone: tel: fax: Referral ID Status Reason Start Date Expiration Date V isits Requested Visits Authorized [id number] Pending Review 01/19/2025 01/19/2026 1 1 Question Answer Consult Type: Hand/Wrist Type: Per Protocol My clinical question is: R wrist pain Patient Scheduling Instructions: [facility] Orthopedic Warp Dresser team will contact you via phone, text, email or Noemalifehart within 2 business days to help you schedule your appointment, or you may contact the Warp Dresser Team at . Comments Please be aware that coverage of these services is subject to the terms and limitations of your health insurance plan. Call member services at your health plan with any benefit or coverage questions. [facility] Orthopedic Warp Dresser team will contact you via phone, text, email or Noemalifehart within 2 business days to help you schedule your appointment, or you may contact the Warp Dresser Team at . Reason for Visit * Reason Comments IUD Wound Check Musculoskeletal Problem Encounter Details Date Type Department Care Team (Late st Contact Info) Description 01/19/2025 11:30 AM CDT Office Visit [facility] [address] [place] [phone] [place] [address] [place] [address] IUD check up (Primary Dx); [...] than three times a week 07/16/2024 Attends [employer] Not on file 07/16 Active Member [...] referral to Adult Physical Medicine and Rehab Warp Dresser Right wrist pain - Orthopedic Warp Dresser Referral BMI Estimated body mass index is [...] pressure wound recheck Heladio [facility] MD [facility] Yared Marina is a 24 [...] 9:00 AM CDT Office Visit [facility] [address] [phone] Jadon Floyd MD [address] [place] [address] 03/23/2025 12:45 PM CDT Appointment [facility] [address] [facility] [address] [place] [phone] Cayden Bejarano MD [address] [place] [address] DR CRUZ [address] [place] [address] 03/23/2025 1:30 PM CDT Hospital Encounter [facility] [address] [place] [phone] Cayden Bejarano MD [address] [place] [address] [address] [place] [address] 03/25/2025 10:20 AM CDT Virtual Visit [facility] [place] [address] [place] [address] [place] [address] [address] [place] [address] 04/04/2025 12:00 PM FURNACE PACKER Office Visit [facility] [place] [address] [place] [phone] Sugey Mccoy, BOARD LINING MACHINE OPERATOR [facility] [address] [place], [place] [address] 05/30/2025 10:20 AM FURNACE PACKER Appointment [facility] [address] [place] [phone] Carlos Joyner MD [address] [place] [phone] 05/31/2025 2:00 PM FURNACE PACKER Virtual [facility] [place] [address] [facility] 4th [place] [phone] Carlos Joyner MD [address] [place] [address] [phone] 07/25/2025 11:00 AM FURNACE PACKER Office Visit [address] [address] Heladio Willoughby MD [address] [place] [address] [phone] Scheduled Referrals Name Type Priority Associated Diagnoses Orde r Schedule Orthopedic Warp Dresser Referral Referral Routine Right wrist pain Expected: 01/19/2025 (Approximate), Expires: 01/19/2026 Adult Physical Medicine and Rehab Warp Dresser Referral Referral Priority: 1-2 Weeks Pressure injury [...] forearm documented in this encounter Care Teams Community Liaison Relationship Specialty Start [place] [address] [place] [address] PCP - General 03/05/23 Carlos Joyner MD [address] [place] [address] Urology 12/09/19 Jadon Murray MD [facility] 25[address] [facility] 550 [place], [place] [phone] Referring Physician Pediatric Surgery 12/09/19 Maru Villagomez, RN Registered Nurse 12/10/19 Ang Slade MD [address] [place] [address] [id number] Urology 04/24/20 Carlos Joyner MD [address] [place] [address] [phone] Assigned Surgical Provider 12/24/20 Ang Slade MD [address] [address] Urology 12/18/22 Lakshmi Wilhelm PA-C [address] [place] [address] Physician Facilities Manager Urology 02/03/23 [place] [address] [place] [address] Assigned PCP 02/06/23 Alissa Perez PA-C [address] [place] [address] Physician Facilities Manager Surgery 09/04/23 Lakshmi Wilhelm PA-C [address] [place] [address] Physician Facilities Manager Urology 09/16/23 Aidee Valero PA-C [address] [place] [address] Assigned Musculoskeletal Provider 04/17/24 02/14/25 Tanisha Marlow 4120 [facility] [address] 03/30/24 documented as of this encounter
--- OUTSIDE RECORDS SUMMARY | 2025-01-25 10:45 | XMS_ITS | Encounter Summary ---
Author Organization [place] Address [address] [place] [address] Care Team Providers Care Button Tacker Name Role Phone Carlos Joyner MD Unavailable [phone] Jadon Murray MD Unavailable [phone] Maru Villagomez RN Unavailable Unavailable Ang Slade MD Unavailable [phone] Carlos Joyner MD Unavailable [phone] Ang Slade MD Unavailable [phone] Lakshmi Wilhelm-C Unavailable [phone] Heladio Willoughby MD Primary Care Provider [phone] Heladio Willoughby MD Unavailable Alissa Perez PA-C Unavailable [phone] Lakshmi Wilhelm-Juan A Unavailable [phone] Aidee Valero PA-C Unavailable [phone] Carlos Joyner MD Unavailable [phone] Reason for Referral * Diagnostic Imaging Ultrasound (Routine) - Authorized Specialty Diagnoses / Procedures Referred By Contabran t Referred To Contact Radiology. Diagnoses Recurrent UTI Kidney stone Procedures US Renal Complete Non-Vascular Carlos Joyner MD [address] [place] [address] Phone: tel: fax: Referral ID Status Reason Start Date Expiration Date V isits Requested Visits Authorized [id number] Authorized 01/25/2025 01/25/2026 1 1 * Diagnostic Imaging XR (Routine) - Authorized Specialty Diagnoses / Procedures Referred By Contac t Referred To Contact Radiology. Diagnoses Recurrent UTI Kidney stone Procedures XR Abdomen 2 Views Carlos Joyner MD [address] [place] [address] Phone: tel: fax: Referral ID Status Reason Start Date Expiration Date V isits Requested Visits Authorized [id number] Authorized 01/25/2025 01/25/2026 1 1 Reason for Visit * Reason Comments RECHECK Encounter Details Date Type Department Care Team (Late st Contact Info) Description 01/25/2025 10:45 AM CDT Virtual Visit [facility] [address] [place] [phone] Carlos Joyner MD [address] [place] [address] [phone] Recurrent UTI (Primary Dx); Kidney stone Social [...] Answer Date Recorded PHQ-2 Score 0 09/13/2024 [facility] Occupat ional Health - Occupational [...] location): Off-site Platform used for Video Visit: [facility] UROLOGY OUTPATIENT VISIT CHIEF COMPLAINT Kidney Stones [...] results for input(s): PTHI in the last 68896 hours. HGB A1C RESULTS: No results found [...] CT ABDOMEN PELVIS W/O CONTRAST LOCATION: [facility] DATE: 01/18/2025 INDICATION: Bilateral nephrolithiasis [...] 01/25/2025 10:45 AM CDT Current patient location: [address] [place] [address] Is the patient currently in the state of [place]? YES Visit mode: VIDEO If the visit is dropped, the patient can be reconnected by:VIDEO VISIT: Text to cell phone: Telephone Information: [employer] # - [phone] Will anyone else be joining the visit? YES: How would they like to receive their invitation? Text to cell phone: [employer] # - [phone] (If patient encounters technical issues they should call [phone]) Are changes needed to the allergy [...] [facility] [address] 3rd [place] [address] Jadon Floyd MD [address] [place] [address] 03/23/2025 12:45 PM CDT Appointment [facility] [address] [facility] [address] [place] [phone] Cayden Bejarano MD [address] [place] [address] [address] [place] [address] 03/23/2025 1:30 PM CDT Hospital Encounter [facility] [address] [place] [address] Cayden Bejarano MD [address] [place], [place] [address] [place] [address] 03/25/2025 10:20 AM CDT Virtual Visit [facility] [place] [address] [place], [place] [address] [place] [address] Cayden Bejarano MD [address] [place] [address] [address] [place] [address] 04/04/2025 12:00 PM CHIMNEY BUILDER HELPER Office Visit [facility] [address] [phone] Sugey Mccoy, NESTOR UNATTENDED GROUND SENSOR SPECIALIST [address] [place] [address] [place] [address] 175664 05/30/2025 10:20 AM CHIMNEY BUILDER HELPER Appointment [facility] [address] [facility] [address] [place] [phone] Carlos Joyner MD [address] [place] [address] 05/31/2025 2:00 PM CHIMNEY BUILDER HELPER Virtual Visit [facility] [address] 4th [place] [address] Carlos Joyner MD [address] [place] [address] [phone] 07/25/2025 11:00 AM CHIMNEY BUILDER HELPER Office Visit [facility] [address] [place] [address] [place] [address] [place] [address] Scheduled Orders Name Type Priority [...] ORDERABLES Fin al Result Performing Organization Address [facility]/ZIP Co de Phone Number [facility] [address] Lab (1st floor, no room number) [place] [address] * Reticulocyte count (02/21/2025 11:26 AM CDT) % Reticulocyte 1.82 0.50 - 2.00 % 02/21/2025 12:13 PM CDT [facility] Absolute Reticulocyte 0.0865 0.0250 - 0.0950 10e6/uL 02/21/2025 12:13 PM CDT [facility] Blood STRUCTURE OF RIGHT UPPER LIMB / Unknown Venipuncture / Unknown 02/21/2025 11:26 AM CDT 02/21/2025 11:27 AM CDT Carlos Joyner MD LAB - BLOOD ORDERABLES Fin al Result [facility] [address] Lab (1st floor, no room number) [place] [address] * (ABNORMAL) Basic metabolic panel (Ca, [...] - BLOOD ORDERABLES Fin al Result LABORATORY [facility] [address] Lab (1st floor, no room number) [place] [address], [facility] documented in this encounter Visit Diagnoses Diagnosis Recurrent UTI- Primary Urinary tract infection, site not specified Kidney stone Calculus of kidney documented in this encounter Care Teams Button Tacker Relationship Specialty Start [place] [address] [place] [address] PCP - General 03/05/23 Carlos Joyner MD [address] [place] [address] Urology 12/09/19 Jadon Murray MD [facility] 2530 [facility] 550 [place] [address] Referring Physician Pediatric Surgery 12/09/19 Maru Villagomez, RN Registered Nurse 12/10/19 Ang Slade MD 420 [facility] 394 [place], [place] 162235 Urology 04/24/20 Carlos Joyner MD [address] [place] [address] 986105 Assigned Surgical Provider 12/24/20 Ang Slade MD 420 [facility] 394 [place], [place] [address] Urology 12/18/22 Lakshmi Wilhelm PA-C [address] [place] [address] 096135 Physician Jive Developer Urology 02/03/23 [place] [address] [place] [address] Assigned PCP 02/06/23 Alissa Perez PA-C [address] [place] [address] 576515 Physician Jive Developer Surgery 09/04/23 Lakshmi Wilhelm PA-C [address] [place] [address] Physician Jive Developer Urology 09/16/23 Aidee Valero PA-C [address] [place] [address] Assigned Musculoskeletal Provider 04/17/24 02/14/25 Carlos Jyoner MD [address] [place] [address] Urology 01/26/25 Tanisha Marlow [facility]0 [facility] [address] 03/30/24 documented as of this encounter
--- OUTSIDE RECORDS SUMMARY | 2025-01-28 09:30 | XMS_ITS | Encounter Summary ---
Author Organization [place] Address [address] [place] [address]. [place] [address] Care Team Providers Care Division Toll Wire Chief Name Role Phone Carlos Joyner MD Unavailable [phone] Jadon Murray MD Unavailable [phone] Maru Vlilagomez RN Unavailable Unavailable Ang Slade MD Unavailable [phone] Carlos Joyner MD Unavailable [phone] Ang Slade MD Unavailable [phone] Lakshmi Wilhelm-C Unavailable [phone] Heladio Willoughby MD Primary Care Provider [phone] Heladio Willoughby MD Unavailable Alissa Perez PA-C Unavailable [phone] Lakshmi Wilhelm-C Unavailable [phone] Aidee Valero PA-C Unavailable [phone] Carlos Joyner MD Unavailable [phone] Reason for Visit * Reason Comments Follow Up Encounter Details Date Type Department Care Team (Late st Contact Info) Description 01/28/2025 9:30 AM CDT Office Visit [facility] [address] [place] [address] [place] [address] [place] [address] Visit for wound check (Primary Dx); Pressure [...] than three times a week 07/16/2024 Attends Hinduism Services Not on file 07/16 Active Member of Clubs or Organizations Not on f ile 07/16/2024 Attends Club or Organization Meetings Not on antelmo e 07/16/2024 Marital Status Not on file 07/16/2024 PHQ-2 Answer Date Recorded PHQ-2 Score 0 09/13/2024 [facility] Occupat ional Health - [...] physical, earlier as needed Heladio Willoughby MD [facility] 01/28/2025 Yared Marina is a 24 year [...] Hx of injury several years ago at [place] when her wheelchair tipped and she braced [...] ROM. TTP diffusely over dorsal wrist. SKIN: [id number] wound with exposed dermis appreciated in left [...] Description 03/03/2025 9:00 AM CDT Office Visit [facility] [address] [phone] Jadon Floyd MD [address] [place] [address] 03/23/2025 12:45 PM CDT Appointment [facility] [place] [facility] [address] [facility] [address] [place] [address] Cayden Bejarano MD [address] [place], [place] [address]A[address] [place] [address] 03/23/2025 1:30 PM CDT Hospital Encounter [facility] [address] [place] [address] [place] [address] Cayden Bejarano [place] [address] [place] [address] 03/25/2025 10:20 AM CDT Virtual Visit [facility] [place] [address] [place] [address] Drive [address] [place] [address] Cayden Bejarano MD [address] [place], [place] [address]A[address] [place] [address] 04/04/2025 12:00 PM ATMOSPHERIC DRIER TENDER Office Visit [facility] [place] [address] [place] [address] Darius Elvirginia JaelNESTOR CNP [address] [place] [address] 05/30/2025 10:20 AM ATMOSPHERIC DRIER TENDER Appointment [facility] [address] [place] [address] [place] [address] Carlos Joyner MD [address] [place] [address] 05/31/2025 2:00 PM ATMOSPHERIC DRIER TENDER Virtual Visit [facility] [address] 4th [place] [address] Carlos Joyner MD [address] [place] [address] 07/25/2025 11:00 AM ATMOSPHERIC DRIER TENDER Office Visit [facility] [address] [place] [address] [place] [address] [place] [address] documented as of this encounter Visit Diagnoses Diagnosis Visit for wound check- Primary Encounter for other specified aftercare Pressure injury of back, stage 2 (H) Paraplegia (H) Paraplegia Right wrist pain Pain in joint, forearm documented in this encounter Care Teams Division Toll Wire Chief Relationship Specialty [place] [address] [place] [address] PCP - General 03/05/23 Carlos Joyner MD [address] [place] [address] Urology 12/09/19 Jadon Murray MD [facility] [address] [facility] [address] [place] [address] Referring Physician Pediatric Surgery 12/09/19 Maru Villagomez, RN Registered Nurse 12/10/19 Ang Slade MD 420 [facility] 394 [place], [place] 7[address] Urology 04/24/20 Carlos Joyner MD [address] [place] [address] 954715 Assigned Surgical Provider 12/24/20 Ang Slade MD 420 [facility] 394 [place], [place] [address] Urology 12/18/22 Lakshmi Wilhelm PA-C [address] [place] [address] 700255 Physician Hose Builder Urology 02/03/23 [place] [address] [place] [address] Assigned PCP 02/06/23 Alissa Perez PA-C [address] [place] [address] 804185 Physician Hose Builder Surgery 09/04/23 Lakshmi Wilhelm PA-C [address] [place] [address] Physician Hose Builder Urology 09/16/23 Aidee Valero PA-C 909 [place] [address] Assigned Musculoskeletal Provider 04/17/24 02/14/25 Carlos Joyner MD 909 [place] [address] Urology 01/26/25 Tanisha Marlwo [facility] [address] 03/30/24 documented as of this encounter
--- OUTSIDE RECORDS SUMMARY | 2025-02-01 10:00 | XMS_ITS | Encounter Summary ---
Author Organization [place] Address [address] [place] [address] Care Team Providers Care Pyridine Recovery Operator Name Role Phone Carlos Joyner MD Unavailable + [phone] Jadon Murray MD Unavailable [phone] Maru Villagomez RN Unavailable Unavailable Ang Slade MD Unavailable +- [phone] Carlos Joyner MD Unavailable + [phone] Ang Slade MD Unavailable +- [phone] Lakshmi Wilhelm-C Unavailable [phone] Heladio Willoughby MD Primary Care Provider [phone] Heladio Willoughby MD Unavailable Alissa Perez PA-C Unavailable [phone] [facility] PA[facility] Unavailable +- [phone] Aidee Valero PA-C Unavailable [phone] Carlos Joyner MD Unavailable + [phone] Jadon Floyd MD Unavailable [phone] Reason for Referral * Occupational Therapy (Routine: Next available opening) - Pending Review Specialty Diagnoses / Procedures Referred By Contabran t Referred To Contact Diagnoses Right wrist pain 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 If you don't hear from a financial representative within 2 business days, please call . Additional Information: mold custom splint as well Comments Please be aware that coverage of these services is subject to the terms and limitations of your health insurance plan. Call member services at your health plan with any benefit or coverage questions. [employer] will call you to coordinate your care as prescribed by your provider. If you don't hear from a financial representative within 2 business days, please call . * Diagnostic Imaging MRI (Routine) - Authorized Specialty Diagnoses / Procedures Referred By Chalri sylvester Referred To Contact Radiology. 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 Diagnoses Right wrist pain Procedures XR Wrist Right G/E 3 [place] [address] [place] [address] Phone: tel: fax: Referral ID Status Reason Start Date Expiration Date Visits Re quested Visits Authorized [id number] Closed 02/01/2025 02/01/2026 1 1 Reason for Visit * Reason Comments Pain * Consultation (Routine) - Pending Review Specialty Diagnoses / Procedures Referred By Charli sylvester Referred To Contact Diagnoses [place] [address] [place] [address] Phone: tel: fax: Referral ID Status Reason Start Date Expiration Date V isits Requested Visits Authorized [id number] Pending Review 01/19/2025 01/19/2026 1 1 Encounter Details Date Type Department Care Team (Late st Contact Info) Description 02/01/2025 10:00 AM CDT Office Visit [facility] [place] [address] [address] [facility] [address] [place], [place] [phone] [place] [address] [address] [place], [place] [phone] [place] [address] [place] [address] Injury of triangular fibrocartilage complex (TFCC) of [...] than three times a week 07/16/2024 Attends [employer] Not on file 07/16 Active Member [...] MRI has been ordered. You may call [phone] to schedule over the phone. Please call my office to schedule a video visit 2 days after your MRI is complete to discuss results and next step treatment options. -Patient will start formal hand therapy and home exercise program. They can also almond paste molder a custom splint to wear to help with her pain while she is transferring from her wheelchair -Call direct clinic number [[phone]] at any time with questions or concerns. Cayden Bejarano MD [facility] documented in this encounter Progress Notes * [...] MRI has been ordered. You may call [phone] to schedule over the phone. Please call my office to schedule a video visit 2 days after your MRI is complete to discuss results and next step treatment options. -Patient will start formal hand therapy and home exercise program. They can also almond paste molder a custom splint to wear to help with her pain while she is transferring from her wheelchair -Call direct clinic number [[phone]] at any time with questions or concerns. Cayden Bejarano MD [facility] ----- SUBJECTIVE Laina Escudero is a/an 24 year old Left handed [...] in hospitality or with animals. Bowling, basketball, [employer] ball and Track Past Medical History: Diagnosis Date Acute cystitis Acute kidney failure Acute kidney failure, unspecified 02/10/2020 Capsulitis left shoulder Cerebral infarction (H) Decubitus ulcer Depressive disorder History of brain shunt Horseshoe kidney Hydrocephalus (H) vp product marketing shunt 01/30/2021 Kidney stone Meningomyelocele (H) [...] min Stress: No Stress Concern Present (07/16/2024) [employer] [place] [employer] - Occupational Stress Questionnaire [...] pain, ulnar deviation limited by pain Strength: Irradiated Fuel Handler strength limited by pain flexion limited by pain extension limited by pain. Normal pinch strength. Special Tests: Positive: tfc grind Negative: Mary's, CMC grind, thenar eminence wasting, hypothenar eminence wasting. Independent visualization of the below image: Recent Results (from the past 24 hours) XR Wrist Right G/E 3 Views Narrative No acute fracture, dislocation or osseous abnormalities. [facility] documented in this encounter Plan of Treatment Upcoming Encounters Date Type Department Care Team (Late st Contact Info) Description 03/03/2025 9:00 AM CDT Office Visit [facility] Medicine [facility] Rehabilitation Clinic [address] 3rd [place] [phone] Jadon Floyd MD [address] [place] [address] 03/23/2025 12:45 PM CDT Appointment [facility] [address] [facility] [address] [place] [phone] [place] [address] [place] [address] 03/23/2025 1:30 PM CDT Hospital Encounter [facility] [address] [place] [phone] [place] [address] [facility] [address] [address] [place] [address] 03/25/2025 10:20 AM CDT Virtual Visit [facility] [place] [address] [place] [address] Drive [address] [place] [address] [place] [address] [place] [address] 04/04/2025 12:00 PM PLAYGROUND EQUIPMENT ERECTOR Office Visit [facility] Center [address] [phone] Sugey Mccoy, SAMPLE CLERK [address] [id number] 05/30/2025 10:20 AM PLAYGROUND EQUIPMENT ERECTOR Appointment [facility] [address] [place] [phone] Carlos Joyner MD [address] [place] [address] 05/31/2025 2:00 PM PLAYGROUND EQUIPMENT ERECTOR Virtual Visit [facility] Urology Clinic [address] 4th [place] [phone] Carlos Joyner MD [address] [place] [address] 07/25/2025 11:00 AM PLAYGROUND EQUIPMENT ERECTOR Office Visit [facility] [address] [place] [address] [place] [address] [place], [place] [phone] Scheduled Orders Name Type Priority Associated Diagnoses [...] forearm documented in this encounter Care Teams Pyridine Recovery Operator Relationship Specialty Start [place] [address] [place] [address] PCP - General 03/05/23 Carlos Joyner MD [address] [place] [address] Urology 12/09/19 Jadon Murray MD [facility] [address] [facility] [address] [place] [address] Referring Physician Pediatric Surgery 12/09/19 Maru Villagomez, RN Registered Nurse 12/10/19 Ang Slade MD [address] [place] [id number] Urology 04/24/20 Carlos Joyner MD [address] [place] [address] Assigned Surgical Provider 12/24/20 Ang Slade MD [address] [address] Urology 12/18/22 Lakshmi Wilhelm PA-C [address] [place] [address] Physician Statue Maker Urology 02/03/23 [place] [address] [place] [address] Assigned PCP 02/06/23 Alissa Perez PA-C [address] [place] [address] Physician Statue Maker Surgery 09/04/23 Lakshmi Wilhelm PA-C [address] [place] [address] Physician Statue Maker Urology 09/16/23 Aidee Valero PA-C [address] [place] [address] Assigned Musculoskeletal Provider 04/17/24 02/14/25 Carlos Joyner MD [address] [place] [address] Urology 01/26/25 Jadon Floyd MD [address] [place] [address] Physician Physical Medicine and Rehabilitation 01/31/25 Tanisha Marlow 4120 [facility] [address] 03/30/24 documented as of this encounter
--- OUTSIDE RECORDS SUMMARY | 2025-02-01 10:05 | XMS_ITS | Encounter Summary ---
Author Organization [facility] Address [address] [place] [address] Care Team Providers Care Shipping Weigher Name Role Phone Carlos Joyner MD Unavailable [phone] Jadon Murray MD Unavailable [phone] Maru Villagomez RN Unavailable Unavailable Ang Slade MD Unavailable [phone] Carlos Joyner MD Unavailable [phone] Ang Slade MD Unavailable [phone] Lakshmi Wilhelm-C Unavailable [phone] Heladio Willoughby MD Primary Care Provider [phone] Heladio Willoughby MD Unavailable Alissa Perez PA-C Unavailable [phone] [facility] carey PA-C Unavailable [phone] Aidee Valero PA-C Unavailable [phone] Carlos Joyner MD Unavailable [phone] Jadon Floyd MD Unavailable [phone] Reason for Visit * Diagnostic Imaging XR (Routine) - Closed Specialty Diagnoses / Procedures Referred By Contac t Referred To Contact Radiology. Diagnoses Right wrist pain Procedures XR Wrist Right G/E 3 [place] [address] [place] [address] Phone: tel: fax: Referral ID Status Reason Start Date Expiration Date Visits Re quested Visits Authorized [id number] Closed 02/01/2025 02/01/2026 1 1 Encounter Details Date Type Department Care Team (Late st Contact Info) Description 02/01/2025 10:05 AM CDT Ancillary Procedure [facility] [address] [place] [address] [place] [address] [place] [address] Right wrist pain Social History Tobacco Use [...] Answer Date Recorded PHQ-2 Score 0 09/13/2024 [facility] - Occupational Stress [...] Description 03/03/2025 9:00 AM CDT Office Visit [facility] [address] [address] Jadon Floyd MD [address] [place] [address] 277945 03/23/2025 12:45 PM CDT Appointment [facility] [place] [address] [place] [address] [place] [address] [place] [address] 03/23/2025 1:30 PM CDT Hospital Encounter [facility] [address] [facility] [address] [place] [phone] [place] [id number] [place] [address] [address] [place] [address] 03/25/2025 10:20 AM CDT Virtual Visit [facility] [place] [address] [place] [address] [address] [place] [address] [place] [address] [place] [address] 04/04/2025 12:00 PM LINE DECORATOR Office Visit [facility] Sleep [address] [phone] Sugey Mccoy, MECHATRONICS TECHNICIAN [address] [address] 05/30/2025 10:20 AM LINE DECORATOR Appointment [facility] [address] [facility] [address] [place] [address] Carlos Joyner MD [address] [place] [address] 545955 05/31/2025 2:00 PM LINE DECORATOR Virtual Visit [facility] Urology [address]th [place] [phone] Carlos Joyner MD [address] [place] [address] [phone] 07/25/2025 11:00 AM LINE DECORATOR Office Visit [facility] [address] [place] [phone] [place] [address] [place], [place] [phone] documented as of this encounter Procedures Procedure Name Priority Date/Time Associated Diagnosis Comments XR WRIST RIGHT G/E 3 VIEWS Routine 02/01/2025 10:10 AM CDT Right wrist pain documented in this encounter Results * XR Wrist Right G/E 3 Views (02/01/2025 10:10 AM CDT) Anatomical Region Laterality Modality Wrist, Right Wrist Right Computed Radi ography Narrative 02/01/2025 11:00 AM CDT No acute fracture, dislocation or osseous abnormalities. us Cayden Bejarano MD IMG DIAGNOSTIC IMAGING ORDERABLE S Final Result documented in this encounter Visit Diagnoses Diagnosis Right wrist pain Pain in joint, forearm documented in this encounter Care Teams Shipping Weigher Relationship Specialty Start [place] [address] [place], [place] [phone] PCP - General 03/05/23 Carlos Joyner MD [address] [place] [address] Urology 12/09/19 Jadon Murrya MD [facility] [address] [address] Referring Physician Pediatric Surgery 12/09/19 Maru Villagomez, RN Registered Nurse 12/10/19 Ang Slade MD [address] [place] [address] Urology 04/24/20 Carlos Joyner MD [address] [place] [address] Assigned Surgical Provider 12/24/20 Ang Slade MD [address] [place] [address] Urology 12/18/22 Lakshmi Wilhelm PA-C [address] [place] [address] 564045 Physician Computational Geneticist Urology 02/03/23 [place] [address] [place] [address] Assigned PCP 02/06/23 Alissa Perez PA-C [address] [place] [address] 352205 Physician Computational Geneticist Surgery 09/04/23 Lakshmi Wilhelm PA-C [address] [place] [address] 293145 Physician Computational Geneticist Urology 09/16/23 Aidee Valero PA-C [address] [place] [address] 662155 Assigned Musculoskeletal Provider 04/17/24 02/14/25 Carlos Joyner MD [address] [place] [address] 648945 Urology 01/26/25 Jadon Floyd MD 9 [place], [place] 853695 Physician Physical Medicine and Rehabilitation 01/31/25 Tanisha Marlow [address] [facility] [address] 03/30/24 documented as of this encounter
--- OUTSIDE RECORDS SUMMARY | 2025-02-08 15:00 | XMS_ITS | Encounter Summary ---
Author Organization [facility] Address [address] [place] [address] Care Team Providers Care Wet Primer Powder Blender Name Role Phone Carlos Joyner MD Unavailable + 53771 Jadon Murray MD Unavailable +[phone] Maru Villagomez RN Unavailable Unavailable Ang Slade MD Unavailable +- [phone] Carlos Jyoner MD Unavailable +[phone] Ang Slade MD Unavailable +- [phone] Lakshmi Wilhelm-C Unavailable [phone] Heladio Willoughby MD Primary Care Provider [phone] Heladio Willoughby MD Unavailable Alissa Perez PA-C Unavailable [phone] [facility] PA-[facility] Unavailable +- [phone] Aidee Valero PA-C Unavailable +[phone] Carlos Joyner MD Unavailable + [phone] Jadon Floyd MD Unavailable [phone] Reason for Visit * Occupational Therapy (Routine: Next available opening) - Pending Review Specialty Diagnoses / Procedures Referred By Contabran t Referred To Contact Diagnoses Right wrist pain 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, [place] [address] [place] [address] Phone: tel: fax: Referral ID Status Reason Start Date Expiration Date V isits Requested Visits Authorized [id number] Pending Review 02/01/2025 02/01/2026 1 1 Encounter Details Date Type Department Care Team (Latest Contact Info) Description 02/08/2025 3:00 PM CDT Therapy Visit [facility] [address] [place] [address] [place] [address] [place], [place] [phone] Eliza Carty OT 909 [place] [address] Injury of triangular fibrocartilage complex (TFCC) of [...] Answer Date Recorded PHQ-2 Score 0 09/13/2024 [facility] [place] of Occupat ional Health - Occupational [...] Help at home: Self Cares (home health aide/children's attendant, family, etc); Home management tasks (cooking, cleaning); Medication and/or finances; Home and Yard maintenance tasks; Assist for driving and community activities Equipment owned: Power wheelchair or scooter; Raised toilet seat; Ceiling lift Employment: No Hobbies/Interests: [employer] Bowling, Basketball, Bocce Ball, Track & Field. Community [employer] Bowling. Dining out with family & caregivers, [...] Transportation: medical transportation Currently not working -At [employer] 5-7 years ago, chair fell over the [...] Forearm based Self Care: Self Care Tasks Patient Services Rep Goals OT Goal 1 Goal Identifier: ADL [...] Care. Evaluation Time: Sherman Corcoran Complexity Minutes (24125): 26 Signing Clinician: Eliza Carty OT [facility] OUTPATIENT OCCUPATIONAL THERAPY PLAN OF TREATMENT FOR OUTPATIENT REHABILITATION Patient's Last Name, First Name, JaelLaina Allan Date of : 2000 Provider's Name [facility] Onset Date: 02/01/25 (order date) Start of [...] Description 03/03/2025 9:00 AM CDT Office Visit [facility] Physical Medicine and Rehabilitation Clinic [address] [phone] Jadon Floyd MD [address] [place] [address] 722375 03/23/2025 12:45 PM CDT Appointment [facility] [address] [place] [address] [place] [address] [address] [place] [address] 03/23/2025 1:30 PM CDT Hospital Encounter [facility] [address] [place] [phone] [place] [address] [place] [address] 03/25/2025 10:20 AM CDT Virtual Visit [facility] Sports Medicine [facility] [place] [address] [place], [place] [address] [place] [address] Cayden Be[place]ano [place] [address] [place] [address] 04/04/2025 12:00 PM SCAFFOLD BUILDER Office Visit [facility] Sleep [facility] [place] [address] [place] [phone] Sugey Mccoy, NESTOR [facility] [address] [place] [address] [address] [place] [address] 05/30/2025 10:20 AM SCAFFOLD BUILDER Appointment [facility] [address] [place] [address] Carlos Joyner MD [address] [place] [address] [phone] 05/31/2025 2:00 PM SCAFFOLD BUILDER Virtual Visit [facility] Urology Clinic [address] 4th [place] [phone] Carlos Joyner MD [address] [place] [address] [phone] 07/25/2025 11:00 AM SCAFFOLD BUILDER Office Visit [facility] [address] [place] [phone] [place] [address] [place] [address] documented as of this encounter Visit Diagnoses Diagnosis 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 [address] [place] [address] Referring Physician Pediatric Surgery 12/09/19 Maru Villagomez, RN Registered Nurse 12/10/19 Ang Slade MD [address] [place] [address] [address] [place] [address] Urology 04/24/20 Carlos Joyner MD [address] [place] [address] 946295 Assigned Surgical Provider 12/24/20 Ang Slade MD [address] [place] [address] 394 [place] [address] Urology 12/18/22 Lakshmi Wilhelm PA-C [address] [place] [address] 246935 Physician Urinalysis Technician Urology 02/03/23 [place] [address] [place] [address] Assigned PCP 02/06/23 Alissa Perez PA-C [address] [place] [address] 679105 Physician Urinalysis Technician Surgery 09/04/23 Lakshmi Wilhelm PA-C [address] [place] [address] [phone] Physician Urinalysis Technician Urology 09/16/23 Aidee Valero PA-C [address] [place] [address] 526215 Assigned Musculoskeletal Provider 04/17/24 02/14/25 Carlos Joyner MD [address] [place] [address] [phone] Urology 01/26/25 Jadon Floyd MD [address] [place] [address] [phone] Physician Physical Medicine and Rehabilitation 01/31/25 Tanisha Marlow 4120 [facility] [address] 03/30/24 documented as of this encounter
--- OUTSIDE RECORDS SUMMARY | 2025-02-15 10:00 | XMS_ITS | Encounter Summary ---
Author Organization [place] Address [address] [place] [address] Care Team Providers Care Boat Worker Name Role Phone Carlos Jyoner MD Unavailable [phone] Jadon Murray MD Unavailable [phone] Maru Villagomez RN Unavailable Unavailable Ang Slade MD Unavailable [phone] Carlos Joyner MD Unavailable +[phone] Ang Slade MD Unavailable [phone] Lakshmi Wilhelm PA-C Unavailable +[phone] Heladio Willoughby MD Primary Care Provider [phone] Heladio Willoughby MD Unavailable Alissa Perez-Juan A Unavailable [phone] Lakshmi Wilhelm PA-C Unavailable [phone] Carlos Joyner MD Unavailable +[phone] Jadon Floyd MD Unavailable +[phone] Cayden Bejarano MD Unavailable Encounter Details Date Type Department Care Team (Latest Contact Info) Description 02/15/2025 10:00 AM CDT Therapy Visit [facility] [address] [facility] [address] [place] [address] Eliza Carty, OT [address] [place] [address]856 Injury of triangular fibrocartilage complex (TFCC) of [...] Answer Date Recorded PHQ-2 Score 0 09/13/2024 [facility] of Occupat ional Health - [...] 03/03/2025 9:00 AM CDT Office Visit [facility] Physical Medicine [facility] Rehabilitation Clinic [address] [phone] Jadon Floyd MD [address] [place] [address] 691675 03/23/2025 12:45 PM CDT Appointment [facility] [address] [place] [place] [address] Cayden Bejarano MD [address] [place] [address] 300 [place], [place] 876777 03/23/2025 1:30 PM CDT Hospital Encounter [facility] [address] [place] [place] [address] [place] [address] [place] [address] 03/25/2025 10:20 AM CDT Virtual Visit [facility] [place] [address] [facility] [address] [place] [address] [place] [address] [place] [address] 04/04/2025 12:00 PM WEIGHT YARDAGE CHECKER Office Visit [facility] [place] [address] [facility] [place] [address] Sugey Mccoy APRN [facility] [address] [place] [address] [address] [place] [address] 05/30/2025 10:20 AM WEIGHT YARDAGE CHECKER Appointment [facility] [address] [facility] [address] [place] [address] Carlos Joyner MD [address] [place] [address] 781155 05/31/2025 2:00 PM WEIGHT YARDAGE CHECKER Virtual Visit 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, initial encounter- Primary Right wrist pain Pain in joint, forearm documented in this encounter Care Teams Boat Worker Relationship Specialty [place] [address] [place] [address] PCP - General 03/05/23 Carlos Joyner MD [address] [place] [address] 07277 Urology 12/09/19 Jadon Murray MD [facility] [address] [address] Referring Physician Pediatric Surgery 12/09/19 Maru Villagomez, RN Registered Nurse 12/10/19 Ang Slade MD [address] [place] [address]305 Urology 04/24/20 Carlos Joyner MD [address] [place] [address] 10801 Assigned Surgical Provider 12/24/20 Ang Slade MD [address] [place] [address] 9[address] Urology 12/18/22 Lakshmi Wilhelm PA-C [address] [place] [address] 902005 Physician Director Of Testing Urology 02/03/23 [place] [address] [place] [address] Assigned PCP 02/06/23 Alissa Perez PA-C [address] [place] [address] 187235 Physician Director Of Testing Surgery 09/04/23 Lakshmi Wilhelm PA-C [address] [place] [address] 46[address] Physician Director Of Testing Urology 09/16/23 Carlos Joyner MD [address] [place] [address] 082645 Urology 01/26/25 Jadon Floyd MD [address] [place] [address] 025135 Physician Physical Medicine and Rehabilitation 01/31/25 [place] [address] [place] [address] Assigned Musculoskeletal Provider 02/15/25 Tanisha Marlow 4120 [facility] [address] 03/30/24 documented as of this encounter
--- OUTSIDE RECORDS SUMMARY | 2025-02-21 11:05 | XMS_ITS | Encounter Summary ---
Author Organization [place] Address [address] [place] [address] Care Team Providers Care Acrylic Fabricator Name Role Phone Carlos Joyner MD Unavailable [phone] Jadon Murray MD Unavailable [phone] Maru Villagomez RN Unavailable Unavailable Ang Slade MD Unavailable [phone] Carlos Joyner MD Unavailable [phone] Ang Slade MD Unavailable [phone] Lakshmi WilhelmC Unavailable [phone] Heladio Willoughby MD Primary Care Provider [phone] Heladio Willoughby MD Unavailable Alissa Perez-Juan A Unavailable [phone] Lakshmi Wilhelm PA-C Unavailable [phone] Carlos Joyner MD Unavailable +[phone] Jadon Floyd MD Unavailable [phone] Cayden Bejarano MD Unavailable Encounter Details Date Type Department Care Team (Late st Contact Info) Description 02/21/2025 11:05 AM CDT Lab [facility] [address] [place] [address] Recurrent UTI; Kidney stone Social [...] Answer Date Recorded PHQ-2 Score 0 09/13/2024 [facility] of Occupat ional Health - [...] 9:00 AM CDT Office Visit [facility] Physical Medicine and Rehabilitation Clinic [address] [phone] Jadon Floyd MD [address] [place] [address] 303655 03/23/2025 12:45 PM CDT Appointment [facility] [address] [place] [address] [address] [place] [address] Cayden Bejar[place] [address] [place] [address] 03/23/2025 1:30 PM CDT Hospital Encounter [facility] [address] [facility] [address] [place] [address] Cayden Bejarano [place] [address] [place] [address] 03/25/2025 10:20 AM CDT Virtual Visit [facility] [place] [address] [place] [address] [place] [address] [place] [address] 04/04/2025 12:00 PM MINING TECHNICIAN Office [facility] Sleep Center [place] [address] [place] [address] Sugey Mccoy, [facility] [address] [place], [place] [address]E [address] [place], [place] [address]114 05/30/2025 10:20 AM MINING TECHNICIAN Appointment [facility] [address] [facility] [address] [place] [address] Carlos Joyner MD [address] [place] [address] 851605 05/31/2025 2:00 PM MINING TECHNICIAN Virtual Visit [facility] Urology Clinic [place] 9[address] [facility] 4th [place] [address] Carlos Joyner MD [address] [place] [address] 033015 07/25/2025 11:00 AM MINING TECHNICIAN Office Visit [address] [address] [place] [address] [place] [address] documented as of this encounter [...] and differential (02/21/2025 11:26 AM CDT) Pathologist [facility] WBC Count 8.85 4.00 - 11.00 10e3/uL [...] - BLOOD ORDERABLES Fin al Result LABORATORY [facility] Acute Care Lab [address] [facility] Lab (1st floor, no room number) [place] [address], [facility] * Hepatic panel (Albumin, ALT, AST, [...] ORDERABLES Fin al Result Performing Organization Address City/[facility]/ZIP Co de Phone Number [facility] Care Lab [address] Lab (1st floor, no room number) [place] [address] * Reticulocyte count (02/21/2025 11:26 AM CDT) [facility] % Reticulocyte 1.82 0.50 - 2.00 % 02/21/2025 12:13 PM CDT LABORATORY Absolute Reticulocyte 0.0865 0.0250 - 0.0950 10e6/uL 02/21/2025 12:13 PM CDT [facility] Blood STRUCTURE OF RIGHT UPPER LIMB / Unknown Venipuncture / Unknown 02/21/2025 11:26 AM CDT 02/21/2025 11:27 AM CDT Carlos Joyner MD LAB - BLOOD ORDERABLES Fin al Result [facility] Acute Care Lab [address] Lab (1st floor, no room number) [place] [address] * (ABNORMAL) Basic metabolic panel (Ca, Cl, CO2, Creat, Gluc, K, Na, BUN) (02/21/2025 11:26 AM CDT) Pathologist [facility] Sodium 140 135 - 145 mmol/L 02/21/2025 [...] - BLOOD ORDERABLES Fin al Result LABORATORY [facility] Acute Care Lab [address] [facility] Lab (1st floor, no room number) [place] [address], [facility] * (ABNORMAL) Urine Culture Aerobic Bacterial (02/21/2025 11:15 AM CDT) Pathologist [facility] Culture 50,000-100,000 CFU/mL Enterococcus faecalis(A) 02/24/2025 10:10 [...] and Susceptibility testing requested by Dr Joyner [phone] Multiple morphotypes present with no predominant organism. [...] ug/mL: Susceptible Carlos Joyner MD LAB - [place] GENERAL ORDERA BLES Edited Result - Final UU IDD LABORATORY [facility] Inf. Diseases Diag. Lab [address] [facility], Room D[address] [place] [phone] documented in this encounter Visit Diagnoses Diagnosis Recurrent UTI Urinary tract infection, site not specified Kidney stone Calculus of kidney documented in this encounter Care Teams Acrylic Fabricator Relationship Specialty [place] [address] [place] [address] PCP - General 03/05/23 Carlos Joyner MD 9 [place] [address] Urology 12/09/19 Jadon Murray MD [facility] 2530 [facility] 550 [place] [address] Referring Physician Pediatric Surgery 12/09/19 Maru Villagomez, RN Registered Nurse 12/10/19 Ang Slade MD 420 [facility] 394 [place], [place] 110945 Urology 04/24/20 Carlos Joyner MD [address] [place] [address] 333135 Assigned Surgical Provider 12/24/20 Ang Slade MD [address] [place] [address] 394 [place], [place] 018645 MD Urology 12/18/22 Lakshmi Wilhelm PA-C [address] [place] [address] 816065 Physician Supervisor Weaving Urology 02/03/23 [place] [address] [place] [address] Assigned PCP 02/06/23 Alissa Perez PA-C [address] [place] [address] 088005 Physician Supervisor Weaving Surgery 09/04/23 Lakshmi Wilhelm PA-C [address] [place] [address] 830115 Physician Supervisor Weaving Urology 09/16/23 Carlos Joyner MD 909 [place] [address] Urology 01/26/25 Jadon Floyd MD 909 [place], [place] 233045 Physician Physical Medicine and Rehabilitation 01/31/25 [place] [address] [place], [place] 888457 Assigned Musculoskeletal Provider 02/15/25 Tanisha Marlow 4120 [facility] [address] 03/30/24 documented as of this encounter
--- OUTSIDE RECORDS SUMMARY | 2025-02-22 14:30 | XMS_ITS | Encounter Summary ---
Author Organization [place] Address [address] [place] [address] Care Team Providers Care Thermal Surfacing Machine Operator Name Role Phone Carlos Joyner MD Unavailable [phone] Jadon Murray MD Unavailable [phone] Maru Villagomez RN Unavailable Unavailable Ang Slade MD Unavailable [phone] Carlos Joyner MD Unavailable +[phone] Ang Slade MD Unavailable [phone] Lakshmi Wilhelm PA-C Unavailable [phone] Heladio Willoughby MD Primary Care Provider [phone] Heladio Willoughby MD Unavailable Alissa Perez-Juan A Unavailable [phone] Lakshmi Wilhelm PA-C Unavailable [phone] Carlos Joyner MD Unavailable [phone] Jadon Floyd MD Unavailable [phone] Cayden Bejarano MD Unavailable Encounter Details Date Type Department Care Team (Latest Contact Info) Description 02/22/2025 2:30 PM CDT Therapy Visit [facility] [address] [facility] [address] [place] [address] Eliza Carty, OT [address] [place] [address] Injury of triangular fibrocartilage complex (TFCC) of [...] Answer Date Recorded PHQ-2 Score 0 09/13/2024 [facility] of Occupat ional Health - [...] Description 03/03/2025 9:00 AM CDT Office Visit [facility] Physical Medicine and Rehabilitation Clinic [address] [phone] Jadon Floyd MD [address] [place] [address] 432765 03/23/2025 12:45 PM CDT Appointment [facility] [address] [place] [address] Cayden Bejarano MD [address] [place] [address] 300 [place], [place] 551267 03/23/2025 1:30 PM CDT Hospital Encounter [facility] [address] [place] [address] [place] [address] [place] [address] 03/25/2025 10:20 AM CDT Virtual Visit [facility] Sports Medicine [facility] [place] [address] [facility] [address] [place] [address] [place] [address] [place] [address] 04/04/2025 12:00 PM OPERATING TABLE ASSEMBLER Office Visit [facility] [place] [address] [facility] [place] [address] Sugey Mccoy APRN [facility] [address] [place] [address] [address] [place] [address] 05/30/2025 10:20 AM OPERATING TABLE ASSEMBLER Appointment [facility] Imaging [address] [facility] [address] [place] [address] Carlos Joyner MD [address] [place] [address] 111275 05/31/2025 2:00 PM OPERATING TABLE ASSEMBLER Virtual Visit [facility] Urology Clinic [address] 4th [place] [address] Carlos Joyner MD [address] [place] [address] 07/25/2025 11:00 AM OPERATING TABLE ASSEMBLER Office Visit [address] [address] [place] [address] [place] [address] documented as of this encounter Visit Diagnoses Diagnosis 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, initial encounter- Primary Right wrist pain Pain in joint, forearm documented in this encounter Care Teams Thermal Surfacing Machine Operator Relationship Specialty Start [place] [address] [place] [address] PCP - General 03/05/23 Carlos Joyner MD [address] [place] [address] Urology 12/09/19 Jadon Murray MD [facility] [address] [address] Referring Physician Pediatric Surgery 12/09/19 Maru Villagomez, RN Registered Nurse 12/10/19 Ang Slade MD [address] [place] [address] Urology 04/24/20 Carlos Joyner MD [address] [place] [address] 120[address] Assigned Surgical Provider 12/24/20 Ang Slade MD [address] [place] [address] Urology 12/18/22 Lakshmi Wilhelm PA-C [address] [place] [address] 425495 Physician House Carpenter Helper Urology 02/03/23 [place] [address] [place] [address] Assigned PCP 02/06/23 Alissa Perez PA-C [address] [place] [address] 463865 Physician House Carpenter Helper Surgery 09/04/23 Lakshmi Wilhelm PA-C [address] [place] [address] Physician House Carpenter Helper Urology 09/16/23 Carlos Joyner MD [address] [place] [address] [id number] Urology 01/26/25 Jadon Floyd MD [address] [place] [address] 422255 Physician Physical Medicine and Rehabilitation 01/31/25 [place] [address] [place] [address] Assigned Musculoskeletal Provider 02/15/25 Tanisha Marlow 4120 [facility] [address] 03/30/24 documented as of this encounter
--- OUTSIDE RECORDS SUMMARY | 2025-02-25 10:45 | XMS_ITS | Encounter Summary ---
Author Organization [facility] Address [address] [place] [address] Care Team Providers Care International Marketing Coordinator Name Role Phone Carlos Joyner MD Unavailable [phone] Jadon Murray MD Unavailable [phone] Maru Villagomez RN Unavailable Unavailable Ang Slade MD Unavailable [phone] Carlos Joyner MD Unavailable [phone] Ang Slade MD Unavailable [phone] Lakshmi WilhelmC Unavailable [phone] Heladio Willoughby MD Primary Care Provider [phone] Heladio Willoughby MD Unavailable Alissa Perez PA-Juan A Unavailable [phone] Lakshmi Wilhelm PA-C Unavailable [phone] Carlos Joyner MD Unavailable [phone] Jadon Floyd MD Unavailable [phone] Cayden Bejarano MD Unavailable Reason for Visit * Reason Comments RECHECK Encounter Details Date Type Department Care Team (Late st Contact Info) Description 02/25/2025 10:45 AM CDT Virtual Visit [facility] Urology [address] 4th [place] [address] Estrella Martinez, WEB COMMUNICATIONS SPECIALIST [address] [facility] [place] [address] Neurogenic bladder (Primary Dx); Recurrent UTI Social History Tobacco Use Types [...] than three times a week 07/16/2024 Attends Muslim Services Not on file 07/16 Active Member of Clubs or Organizations Not on f ile 07/16/2024 Attends Club or Organization Meetings Not on antelmo e 07/16/2024 Marital Status Not on file 07/16/2024 PHQ-2 Answer Date Recorded PHQ-2 Score 0 09/13/2024 [facility] of Occupat ional Health - [...] this encounter Patient Instructions * Patient Instructions* Estrella Martinez NP - 02/25/2025 10:45 AM CDT Irrigate bladder via nicole catheter with 240 mL saline 1.Perform straight cath first and leave the catheter in after. 2.Using a piston syringe, instill 60 mL tap water. 3.Instill a second syringe full of 60 mL tap water. 4.Once second syringe of 60mL (120 total) has been instilled, gently pull back 60 mL. 5.Repeat step 4 until contents has become sufficiently turbulent. 6.Let the remaining water drain by gravity. Sediment or mucous may be seen on withdrawal of saline. [email or web address] Signs of UTI - fever, chills, altered mental status, flank pain, suprapubic pain, increased urinaryincontinence, spasticity or blood in the urine Signs that do not indicate a UTI - foul-smelling, cloudy urine, sediments, dark color documented in this encounter Progress Notes * Estrella Martinez NP - 02/25/2025 10:45 AM CDT Video-Visit Details Type of service: Video Visit Video Start Time: 1042 Video End Time:1107 Originating Location (pt. 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 Medsurg History 04/13/23 - UDS with bladder capacity 950 mL with good compliance and no significant DO or stress incontinence 05/05/23 - Last visit with Dr. Slade - Guardian asked if there is a role for urostomy / ileal conduit to minimize stone risk. I explained that this would be a step backwards -- we have done this in other people with augments and rUTIs andstaghorn stones; but, she does not have an augment. So to do a conduit would potentially introduce new bacteria to urinary tract. 10/15/23 - visit with Lakshmi, New onset of urinary incontinence, resolved after more frequent CIC (5x/day). 12/02/24 - L PCNL & R URS - Dr. Joyner 01/25/25-visit with Dr. Joyner- very small stones remaining in lower poles. plan to start lithostat. Today - CIC w/ 14 Fr 4x/day without difficulty, 250-350cc most of the time with occasional 600cc after getting up - Urine tested x1 in the past month, main sx was sediments - Irrigation with 120cc saline in the AM - gent Instillation 30cc at HS - no leakage in between CIC - oxybutynin bid, lithostat She graduated in September. accompanied by her guardian and home care nurse Exam: LMP (LMP Unknown) GENERAL: alert and no distress EYES: Eyes grossly normal to inspection. No discharge or erythema, or obvious scleral/conjunctival abnormalities. RESP: No audible wheeze, cough, or visible cyanosis. SKIN: Visible skin clear. No significant rash, abnormal pigmentation or lesions. NEURO: Cranial nerves grossly intact. Mentation and speech appropriate for age. PSYCH: Appropriate affect, tone, and pace of words Review of Imaging: The following imaging exams were independently viewed and interpreted by me and discussed with patient: CTAP 01/18/25 FINDINGS: A ventricular shunt catheter enters the [...] postoperative changes of thoracolumbar posterior spinal fixation. IMPRESSION: 1. Nephrolithiasis: Small nonobstructing stones bilaterally. 2. Mild bilateral hydronephrosis. 3. Partially kidney anomaly. 4. Ventricular peritoneal shunt catheter in place. 5. Thoracolumbar posterior spinal fixation. Review of Labs: The following labs were reviewed by me and discussed with the patient: Recent Results (from the past 720 hours) Urine Culture Aerobic Bacterial Collection Time: 02/21/25 11:15 AM Specimen: Urine, NOS Result Value Ref Range Culture Culture in progress Culture 50,000-100,000 CFU/mL Enterococcus faecalis (A) Culture 50,000-100,000 CFU/mL Klebsiella pneumoniae (A) Basic metabolic panel (Ca, Cl, CO2, Creat, Gluc, K, Na, BUN) Collection Time: 02/21/25 11:26 AM Result Value Ref Range Sodium 140 135 - 145 mmol/L Potassium 3.9 3.4 - 5.3 mmol/L Chloride 104 98 - 107 mmol/L Carbon Dioxide (CO2) 24 22 - 29 mmol/L Anion Gap 12 7 - 15 mmol/L Urea Nitrogen 17.6 6.0 - 20.0 mg/dL Creatinine 0.48 (L) 0.51 - 0.95 mg/dL GFR Estimate >90 >60 mL/min/1.73m2 Calcium 9.2 8.8 - 10.4 mg/dL Glucose 91 70 - 99 mg/dL Reticulocyte count Collection Time: 02/21/25 11:26 AM Result Value Ref Range % Reticulocyte 1.82 0.50 - 2.00 % Absolute Reticulocyte 0.0865 0.0250 - 0.0950 10e6/uL Hepatic panel (Albumin, ALT, AST, Bili, Alk Phos, TP) Collection Time: 02/21/25 11:26 AM Result Value Ref Range Protein Total 6.9 6.4 - 8.3 g/dL Albumin 3.7 3.5 - 5.2 g/dL Bilirubin Total 0.3 <=1.2 mg/dL Alkaline Phosphatase 85 40 - 150 U/L AST 12 0 - 45 U/L ALT 11 0 - 50 U/L Bilirubin Direct 0.09 0.00 - 0.30 mg/dL CBC with platelets and differential Collection Time: 02/21/25 11:26 AM Result Value Ref Range WBC Count 8.85 4.00 - 11.00 10e3/uL RBC Count 4.75 3.80 - 5.20 10e6/uL Hemoglobin 14.4 11.7 - 15.7 g/dL Hematocrit 44.0 35.0 - 47.0 % MCV 92.6 78.0 - 100.0 fL MCH 30.3 26.5 - 33.0 pg MCHC 32.7 31.5 - 36.5 g/dL RDW 12.8 10.0 - 15.0 % Platelet Count 213 150 - 450 10e3/uL % Neutrophils 62.2 % % Lymphocytes 26.7 % % Monocytes 9.3 % % Eosinophils 1.2 % % Basophils 0.3 % % Immature Granulocytes 0.3 % NRBCs per 100 WBC 0.0 <1.0 /100 Absolute Neutrophils 5.50 1.60 - 8.30 10e3/uL Absolute Lymphocytes 2.36 0.80 - 5.30 10e3/uL Absolute Monocytes 0.82 0.00 - 1.30 10e3/uL Absolute Eosinophils 0.11 0.00 - 0.70 10e3/uL Absolute Basophils 0.03 0.00 - 0.20 10e3/uL Absolute Immature Granulocytes 0.03 <=0.40 10e3/uL Absolute NRBCs <0.03 10e3/uL Assessment & Plan 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 I explained to patient that because she does CIC, her urine will be chronically colonized with bacteria in the urine and that infection only occurs when there is invasion of the bacteria through the bladder mucosal lining. I emphasized that there was no role for surveillance urine cultures or urinalysis. I stressed that vague symptoms plus a positive culture do not constitute a urinary tract infection. I described that foul-smelling or cloudy urine is a sign of bacterial overgrowth but not of urinary tract infection. I explained the danger of overtreatment of asympto matic bacteriuria with antibiotics and her role in antibiotic stewardship. I reviewed the symptoms of a true urinary tract infection to include: fever, flank pain, suprapubic pain, increased urinary incontinence, spasticity or hematuria. Patient understood the discussion and recommendations. - continue CIC 4x/day and prn - continue oxybutynin bid - irrigation every day with more saline 120cc -> 240cc - continue with gent 30cc Follow-up with me in 1 year. Estrella Martinez NP [facility] [place] Additional Coding Information: Time spent: I spent a total of 40 minutes on the day of the visit. Time spent by me today doing chart review, history and exam, documentation and further activities per the note documented in this encounter Nursing Notes * Martha Garduno - 02/25/2025 10:45 AM CDT Current patient location: [place] Is the patient currently in the state of [place]? YES Visit mode: VIDEO If the visit is dropped, the patient can be reconnected by:VIDEO VISIT: Text to cell phone: Telephone Information: Mobile Not on file. Will anyone else be joining the visit? NO (If patient encounters technical issues they should call [phone] :[phone]) Are changes needed to the allergy or medication list? No Are refills needed on medications prescribed by this physician? NO Rooming Documentation: Questionnaire(s) completed Reason for visit: RECHECK Martha Garduno VVF documented in this encounter Plan of Treatment Upcoming Encounters Date Type Department Care Team (Late st Contact Info) Description 03/03/2025 9:00 AM CDT Office Visit [facility] Physical Medicine and Rehabilitation Clinic [address] [phone] Jadon Floyd MD [address] [place] [address] [phone] 03/23/2025 12:[address] [facility] [address] [place] [address] [place] [address] [facility] [address] [place] [address] 03/23/2025 1:30 PM CDT Hospital Encounter [facility] [address] [place] [address] [place] [address] [place] [address] 03/25/2025 10:20 AM CDT Virtual Visit [facility] [place] [address] [place] [address] [place] [address] [place] [address] 04/04/2025 12:00 PM INSURANCE VERIFY REP Office Visit [facility] [place] [address] [place] [phone] Sugey Mccoy APRN [facility] [address] [place] [address] 05/30/2025 10:20 AM INSURANCE VERIFY REP Appointment [facility] [address] [place] [address] Carlos Joyner MD [address] [place] [address] 025525 05/31/2025 2:00 PM INSURANCE VERIFY REP Virtual Visit [facility] [place] [address] [place] [address] 4th [place] [address] Carlos Joyner MD [address] [place] [address] 368665 07/25/2025 11:00 AM INSURANCE VERIFY REP Office Visit [facility] [address] [place] [phone] [place] [address] [place] [address] documented as of this encounter Visit Diagnoses Diagnosis Neurogenic bladder- Primary Neurogenic bladder, NOS Recurrent UTI Urinary tract infection, site not specified documented in this encounter Care Teams International Marketing Coordinator Relationship Specialty Start Date End Date Heladio Will[place]by [place] [phone] [place] [address] PCP - General 03/05/23 Carlos Joyner MD [address] [place] [address] Urology 12/09/19 Jadon Murray MD [facility] [address] [address] Referring Physician Pediatric Surgery 12/09/19 Maru Villagomez, RN Registered Nurse 12/10/19 Ang Slade MD [address] [place] [address] Urology 04/24/20 Carlos Joyner MD [address] [place] [address] 35038 Assigned Surgical Provider 12/24/20 Ang Slade MD [address] [place] [address] 34534 Urology 12/18/22 Lakshmi Wilhelm PA-C [address] [place] [address] 52947 Physician Hoop Driving Machine Operator Urology 02/03/23 [place] [address] [facility] [place] [address] Assigned PCP 02/06/23 Alissa Perez PA-C [address] [place] [address] 107165 Physician Hoop Driving Machine Operator Surgery 09/04/23 Lakshmi Wilhelm PA-C [address] [place] [address] 623485 Physician Hoop Driving Machine Operator Urology 09/16/23 Carlos Joyner MD [address] [place] [address] [phone] Urology 01/26/25 Jadon Floyd MD [address] [place] [address] 919565 Physician Physical Medicine and Rehabilitation 01/31/25 [place] [address] [place] [address] Assigned Musculoskeletal Provider 02/15/25 Tanisha Marlow [address] [place] [address] 03/30/24 documented as of this encounter
[2025-03-01] VITALS (23 sets, daily range): BP systolic 94–130; BP diastolic 68–93; PULSE 92–129; RESP 18–24; TEMP 37.8–38.3; O2SAT 88–96; BMI 32.3
--- OUTSIDE RECORDS SUMMARY | 2025-03-01 02:56 | XMS_ITS | Encounter Summary ---
Author Organization [place] Address [address] [place] [address] Care Team Providers Care Radio Interference Supervisor Name Role Phone Carlos Joyner MD Unavailable + [phone] Jdaon Murray MD Unavailable +[phone] Maru Villagomez RN Unavailable Unavailable Ang Slade MD Unavailable +- [phone] Carlos Joyner MD Unavailable + [phone] Ang Slade MD Unavailable +- [phone] Lakshmi Wilhelm-C Unavailable +[phone] Heladio Willoughby MD Primary Care Provider [phone] Heladio Willoughby MD Unavailable Alissa Perez PA-C Unavailable [phone] Lakshmi Wilhelm PA-C Unavailable +- [phone] Aidee Valero PA-C Unavailable +[phone] Carlos Joyner MD Unavailable + [phone] Jadon Floyd MD Unavailable +[phone] Cayden Bejarano MD Unavailable Encounter Details Date Type Department Care Team (Late st Contact Info) Description 09/23/[address] [address] [place] [address] [place] [address] Social History Tobacco Use Types Packs/Day Years [...] routing back. Heladio Elder. MD [facility] * Telephone Encounter - Kasia Kang - 09/24/2024 2:54 PM CDT Referral is still pending. Routing to provider to sign off and route back to TC's to fax. Kasia Kang Lead Substance Abuse Clinician [facility] documented in this encounter Plan of Treatment Upcoming Encounters Date Type Department Care Team (Late st Contact Info) Description 03/03/2025 9:00 AM CDT Office Visit [facility] Physical Medicine and Rehabilitation Clinic [address] 3rd [place] [address] Jadon Floyd MD [address] [place] [address] 558715 03/23/2025 12:45 PM CDT Appointment [facility] [address] [facility] [address] [place] [address] [place] [address] [place] [address] 03/23/2025 1:30 PM CDT Hospital Encounter [facility] [address] [facility] [address] [place] [address] [place] [address] [place] [address] 03/25/2025 10:20 AM CDT Virtual Visit [facility] Sports Medicine [facility] [address] [place] [address] [address] [place] [address] [place] [address] [place] [address] 04/04/2025 12:00 PM ANIMAL SHELTER SUPERVISOR Office Visit [facility] Sleep Center [address] [phone] Sugey Mccoy, RETAIL TEAM LEADER [address] 928104 05/30/2025 10:20 AM ANIMAL SHELTER SUPERVISOR Appointment [facility] [address] [facility] [address] [place] [address] Carlos Joyner MD [address] [place] [address] 05/31/2025 2:00 PM ANIMAL SHELTER SUPERVISOR Virtual Visit [facility] Urology [address] 4th [place] [address] Carlos Joyner MD [address] [place] [address] 07/25/2025 11:00 AM ANIMAL SHELTER SUPERVISOR Office Visit [facility] [address] [place] [address] [place] [address] [address] [place] [phone] documented as of this encounter Visit Diagnoses Not on filedocumented in this encounter Care Teams Radio Interference Supervisor Relationship Specialty Start [place] [address] [address] [place] [id number] PCP - General 03/05/23 Carlos Joyner MD [address] [place] [address] 079455 Urology 12/09/19 Jadon Murray MD [facility] [address] [address] Referring Physician Pediatric Surgery 12/09/19 Maru Villagomez, RN Registered Nurse 12/10/19 Ang Slade MD [address] [place] [address] 174275 Urology 04/24/20 Carlos Joyner MD [address] [place] [address] Assigned Surgical Provider 12/24/20 Ang Slade MD [address] [place] [address] 879435 Urology 12/18/22 Lakshmi Wilhelm PA-C [address] [place] [address] 038085 Physician Orthodontic Lab Technician Urology 02/03/23 [place] [address] [place] [address] Assigned PCP 02/06/23 Alissa Perez PA-C [address] [place] [address] 796025 Physician Orthodontic Lab Technician Surgery 09/04/23 Lakshmi Wilhelm PA-C [address] [place] [address] 767195 Physician Orthodontic Lab Technician Urology 09/16/23 Aidee Valero PA-C [address] [place] [address] 053515 Assigned Musculoskeletal Provider 04/17/24 02/14/25 Carlos Joyner MD [address] [place] [address] 915395 Urology 01/26/25 Jadon Floyd MD [address] [place] [address] 930175 Physician Physical Medicine and Rehabilitation 01/31/25 [place] [address] [place] [address] Assigned Musculoskeletal Provider 02/15/25 Tanisha Marlow 4120 [facility] [address] 03/30/24 documented as of this encounter
--- OUTSIDE RECORDS SUMMARY | 2025-03-01 02:56 | XMS_ITS | Encounter Summary ---
Author Organization [place] Address [address] [place] [address] Care Team Providers Care Sonography Technologist Name Role Phone Carlos Joyner MD Unavailable + [phone] Jadon Murray MD Unavailable +[phone] Maru Villagomez RN Unavailable Unavailable Ang Slade MD Unavailable +[phone] Carlos Joyner MD Unavailable +[phone] Ang Slade MD Unavailable +[phone] Lakshmi Wilhelm-C Unavailable +[phone] Heladio Willoughby MD Primary Care Provider +[phone] Heladio Willoughby MD Unavailable Alissa Perez PA-C Unavailable [phone] Lakshmi Wilhelm-C Unavailable +[phone] Aidee Valero PA-C Unavailable +[phone] Carlos Joyner MD Unavailable +[phone] Jadon Floyd MD Unavailable +[phone] Cayden Bejarano MD Unavailable Encounter Details Date Type Department Care Team (Late st Contact Info) Description 10/01/2024 [facility] [place] [address] [facility] 4th [place] [address] Hattie Wing RN Social History [...] Date Recorded PHQ-2 Score 0 09/13/2024 [facility] - Occupational [...] Care System Physical Medicine and Rehabilitation Clinic [address] 3rd [place] [address] Jadon Floyd MD [address] [place] [address] 03/23/2025 12:45 PM CDT Appointment [facility] [address] [facility] [address] [place] [address] [place] [address] [place] [address] 03/23/2025 1:30 PM CDT Hospital Encounter [facility] [address] [place] [address] Cayden Bejarano [place] [address] [place] [address] 03/25/2025 10:20 AM CDT Virtual Visit [facility] [place] [address] [place], [place] [address] [place] [address] [place] [address] [address] [place] [address] 04/04/2025 12:00 PM ACCOUNT RESOLUTION ANALYST Office Visit [facility] [place] [address] [place] [address] Sugey Mccoy, HAUL CANE [facility] [address] [place] [address] [address] [place] [address] 05/30/2025 10:20 AM ACCOUNT RESOLUTION ANALYST Appointment [facility] [address] [facility] [address] [place] [address] Carlos Joyner MD [address] [place] [address] 717385 05/31/2025 2:00 PM ACCOUNT RESOLUTION ANALYST Virtual Visit [facility] Urology Clinic [place] 909 [facility] 4th [place] [address] Carlos Joyner MD [address] [place] [address] 701635 07/25/2025 11:00 AM ACCOUNT RESOLUTION ANALYST Office Visit [facility] [address] [place] [address] [place] [address] [place], [place] [phone] documented as of this encounter Visit Diagnoses Not on filedocumented in this encounter Care Teams Sonography Technologist Relationship Specialty Start [place] [address] [place] [address] PCP - General 03/05/23 Carlos Joyner MD [address] [place] [address] Urology 12/09/19 Jadon Murray MD [facility] 2530 [facility] 550 [place] [address] Referring Physician Pediatric Surgery 12/09/19 Maru Villagomez, RN Registered Nurse 12/10/19 Ang Slade MD 420 [facility] 394 [place], [place] 848765 MD Urology 04/24/20 Carlos Joyner MD [address] [place] [address] [phone] Assigned Surgical Provider 12/24/20 Ang Slade MD 420 [facility] 394 [place], [place] 318835 MD Urology 12/18/22 Lakshmi Wilhelm PA-C [address] [place] [address] 945935 Physician Cinder Dump Crane Operator Urology 02/03/23 [place] [address] [place] [address] Assigned PCP 02/06/23 Alissa Perez PA-C [address] [place] [address] 441715 Physician Cinder Dump Crane Operator Surgery 09/04/23 Lakshmi Wilhelm PA-C [address] [place] [address] 207855 Physician Cinder Dump Crane Operator Urology 09/16/23 Aidee Valero PA-C [address] [place] [address] Assigned Musculoskeletal Provider 04/17/24 02/14/25 Carlos Joyner MD [address] [place] [address] Urology 01/26/25 Jadon Floyd MD [address] [place] [address] Physician Physical Medicine and Rehabilitation 01/31/25 [place] [address] [place] [address] Assigned Musculoskeletal Provider 02/15/25 Tanisha Marlow 4120 [facility] [address] 03/30/24 documented as of this encounter
--- OUTSIDE RECORDS SUMMARY | 2025-03-01 02:56 | XMS_ITS | Clinical Summary ---
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/21/2009 Resolved Problems Problem Noted Date Diagnosed Date Resolved Date Adjustment disorder with mix ed disturbance of emotions and conduct 07/04/2011 11/23/2018 Immunizations Immunization Administration Dates Next Due DTaP 01/18/2008,05/06/2005 SSyM-PjfD-EIA (Pediarix) 05/27/2003,03/21/2003,0 2002 HIB PRP-T (ActHIB,Hiberix) 05/27/2003,03/21/2003 [...] on file Legal Sex Female 6:29 AM FACILITY MAINTENANCE MANAGER Gender Identity Not on file Sexual Orientation [...] Comments Blood Pressure 123/80 07/12/2021 1:30 PM FACILITY MAINTENANCE MANAGER Pulse 98 07/12/2021 1:30 PM FACILITY MAINTENANCE MANAGER Temperature 36.9 C (98.5 F) 07/12/2021 1:30 PM FACILITY MAINTENANCE MANAGER Respiratory Rate 18 07/03/2015 5:27 PM FACILITY MAINTENANCE MANAGER Oxygen Saturation 98% 07/12/2021 1:30 PM FACILITY MAINTENANCE MANAGER Inhaled Oxygen Concentration - - Weight 61.2 kg (135 lb) 07/03/2015 5:27 PM FACILITY MAINTENANCE MANAGER Height - - Body Mass Index - [...] Payer (Ef fective 2022-Present) Name:Laina Escudero Member ID:[id number] Relation to Subscriber:Self Name:Laina Escudero Subscriber ID:[id number] Payer ID:Not on file Group ID:Not on file Type:Not on file Address: ATTN: [address]S [phone] [place] [address] Advance Directives Documents on File Type Date Recorded Patient Bag Patcher Expl anation Power of Petroleum Terminal Plant Operator 06/24/2023 1:00 PM Care Teams Bench Jeweler Relationship Specialty Start Date End Date Heladio Willoughby MD PCP - General Family Practice 10/04/24
--- OUTSIDE RECORDS SUMMARY | 2025-03-01 02:56 | XMS_ITS | Encounter Summary ---
Author Organization [place] Address [address] [place] [address] Care Team Providers Care Food Service Name Role Phone Carlos Joyner MD Unavailable +[phone] Jadon Murray MD Unavailable +[phone] Maru Villagomez RN Unavailable Unavailable Ignacia Duran MD Primary Care Provider +[phone] Ang Slade MD Unavailable +[phone] Carlos Joyner MD Unavailable +[phone] Ang Slade MD Unavailable +[phone] Lakshmi Wilhelm-C Unavailable +[phone] Heladio Willoughby MD Primary Care Provider [phone] Heladio Willoughby MD Unavailable Alissa Perez PA-C Unavailable [phone] MdLakshmi morales-C Unavailable +[phone] Aidee Valero PA-C Unavailable +[phone] Carlos Joyner MD Unavailable +[phone] Jadon Floyd MD Unavailable [phone] Cayden Bejarano MD Unavailable Encounter Details Date Type Department Care Team (Late st Contact Info) Description 12/30/2022 [facility] Urology [address] [place] [address] Analisa Palacio RN Social History Tobacco Use [...] Medical Center Physical Medicine and Rehabilitation Clinic [address] 3rd [place] [address] Jadon Floyd MD [address] [place] [address] 03/23/2025 12:45 PM CDT Appointment [facility] [address] [place] [address] [address] [place] [address] Cayden Bejarano MD [address] [place] [address] [address] [place] [address] 03/23/2025 1:30 PM CDT Hospital Encounter [facility] [address] [address] [place] [address] Cayden Bejarano MD [address] [place] [address] [address] [place] [address] 03/25/2025 10:20 AM CDT Virtual Visit [facility] Sports Medicine Clinic [address] [place] [address] [place] [address] [place] [address] 04/04/2025 12:00 PM AIRFIELD SERVICES OFFICER Office Visit [facility] [place] [address] [place] [address] Sugey Mccoy, BROADCAST METEOROLOGIST [facility] [address] [place], [place] [address]E S [address] [place] [address] 05/30/2025 10:20 AM AIRFIELD SERVICES OFFICER Appointment [facility] [address] [facility] [address] [place] [address] Carlos Joyner MD [address] [place] [address] 439245 05/31/2025 2:00 PM AIRFIELD SERVICES OFFICER Virtual Visit [facility] [place] 909 [facility] 4th [place] [address] Carlos Joyner MD [address] [place] [address] 320665 07/25/2025 11:00 AM AIRFIELD SERVICES OFFICER Office Visit [address] [address] [place] [address] [place] [address] documented as of this encounter Visit Diagnoses Not on filedocumented in this encounter Additional Health Concerns Infection Onset Date Last Indicated Resolved Time MRSA Comment:Added from external infection. Pt has had Staph infections but never MRSA from Care everywhere chart review. Removing MRSA 9.14.23 06/17/2019 02/06/2023 9:41 AM C DT documented as of this encounter Care Teams Food Service Relationship Specialty Start Date End Date Ignacia Duran MD PCP - General Pediatrics 01/20/20 03/04/23 [place] [address] [place] [address] PCP - General 03/05/23 Carlos Joyner MD [address] [place] [address] Urology 12/09/19 Jadon Murray MD [facility] 2530 [facility] 550 [place], [place] [phone] Referring Physician Pediatric Surgery 12/09/19 Maru Villagomez, RN Registered Nurse 12/10/19 Ang Slade MD [address] [place] [address] 302455 Urology 04/24/20 Carlos Joyner MD [address] [place] [address] 822495 Assigned Surgical Provider 12/24/20 Ang Slade MD [address] [place] [address] 394 [place] [address] Urology 12/18/22 Lakshmi Wilhelm PA-C [address] [place] [address] Physician Real Estate Underwriter Urology 02/03/23 [place] [address] [place] [address] Assigned PCP 02/06/23 Alissa Perez PA-C [address] [place] [address] Physician Real Estate Underwriter Surgery 09/04/23 Lakshmi Wilhelm PA-C [address] [place] [address] Physician Real Estate Underwriter Urology 09/16/23 Aidee Valero PA-C [address] [place] [address] Assigned Musculoskeletal Provider 04/17/24 02/14/25 Carlos Joyner MD [address] [place] [address] Urology 01/26/25 Jadon Floyd MD [address] [place] [address]862 Physician Physical Medicine and Rehabilitation 01/31/25 [place] [address] [place] [address] Assigned Musculoskeletal Provider 02/15/25 Tanisha Marlow 4120 [facility] [address] 03/30/24 documented as of this encounter
--- OUTSIDE RECORDS SUMMARY | 2025-03-01 02:56 | XMS_ITS | Encounter Summary ---
Author Organization [facility] Address [address] [place] [address] Care Team Providers Care Data Communications Technician Name Role Phone Carlos Joyner MD Unavailable +[phone] Jadon Murray MD Unavailable +[phone] Maru Villagomez RN Unavailable Unavailable Ignacia Duran MD Primary Care Provider +[phone] Ang Slade MD Unavailable +[phone] Carlos Joyner MD Unavailable +[phone] Ang Slade MD Unavailable +[phone] Lakshmi Wilhelm-C Unavailable +[phone] Heladio Willoughby MD Primary Care Provider [phone] Heladio Willoughby MD Unavailable Alissa Perez PA-C Unavailable [phone] OkLakshmi morales-C Unavailable +[phone] Aidee Valero PA-C Unavailable +[phone] Carlos Joyner MD Unavailable +[phone] Jadon Floyd MD Unavailable [phone] Cayden Bejarano MD Unavailable Encounter Details Date Type Department Care Team (Late st Contact Info) Description 01/06/2023 [facility] [address] [place] [address] Lisette Mariee Social History Tobacco Use Types [...] Medical Center Physical Medicine and Rehabilitation Clinic [address] [phone] Jadon Floyd MD [address] [place] [address] 03/23/2025 12:45 PM CDT Appointment [facility] [address] [place] [address] [address] [place] [address] Cayden Bejarano MD [address] [place] [address] [address] [place] [address] 03/23/2025 1:30 PM CDT Hospital Encounter [facility] [address] [facility] [address] [place] [address] Cayden Bejarano MD [address] [place] [address] [address] [place] [address] 03/25/2025 10:20 AM CDT Virtual Visit [facility] Sports Medicine Clinic [address] [place] [address] [place] [address] [place] [address] 04/04/2025 12:00 PM STRADDLE TRUCK OPERATOR Office Visit [facility] [place] [address] [place] [address] Sugey Mccoy, ROD FILLER [facility] [address] [place], [place] [address]E [address] [place] [address] 05/30/2025 10:20 AM STRADDLE TRUCK OPERATOR Appointment [facility] [address] [facility] [address] [place] [address] Carlos Joyner MD [address] [place] [address] 036265 05/31/2025 2:00 PM STRADDLE TRUCK OPERATOR Virtual Visit [facility] Urology Clinic [place] 909 [facility] 4th [place] [address] Carlos oJyner MD [address] [place] [address] 391025 07/25/2025 11:00 AM STRADDLE TRUCK OPERATOR Office Visit [address] [address] [place] [address] [place] [address] documented as of this encounter Visit Diagnoses Not on filedocumented in this encounter Additional Health Concerns Infection Onset Date Last Indicated Resolved Time MRSA Comment:Added from external infection. Pt has had Staph infections but never MRSA from Care everywhere chart review. Removing MRSA 9.14.23 06/17/2019 02/06/2023 9:41 AM C DT documented as of this encounter Care Teams Data Communications Technician Relationship Specialty Start Date End Date Ignacia Duran MD PCP - General Pediatrics 01/20/20 03/04/23 [place] [address] [place] [address] PCP - General 03/05/23 Carlos Joyner MD [address] [place] [address] Urology 12/09/19 Jadon Murray MD [facility] 2530 550 [place], [place] [phone] Referring Physician Pediatric Surgery 12/09/19 Maru Villagomez, RN Registered Nurse 12/10/19 Ang Slade MD [address] [place] [address] 394 [place], [place] 537[address] Urology 04/24/20 Carlos Joyner MD [address] [place] [address] 189055 Assigned Surgical Provider 12/24/20 Ang Slade MD 420 [facility] 394 [place] [address] Urology 12/18/22 Lakshmi Wilhelm PA-C [address] [place] [address] Physician Fire Marshal Refinery Urology 02/03/23 [place] [address] [place] [address] Assigned PCP 02/06/23 Alissa Perez PA-C [address] [place] [address]758 Physician Fire Marshal Refinery Surgery 09/04/23 Lakshmi Wilhelm PA-C [address] [place] [address] Physician Fire Marshal Refinery Urology 09/16/23 Aidee Valero PA-C [address] [place] [address] Assigned Musculoskeletal Provider 04/17/24 02/14/25 Carlos Joyner MD [address] [place] [address] Urology 01/26/25 Jadon Floyd MD [address] [place] [address] Physician Physical Medicine and Rehabilitation 01/31/25 [place] [address] [place] [address] Assigned Musculoskeletal Provider 02/15/25 Tanisha Marlow 4120 [facility] [address] 03/30/24 documented as of this encounter
--- OUTSIDE RECORDS SUMMARY | 2025-03-01 02:56 | XMS_ITS | Encounter Summary ---
Author Organization [place] Address [address] [place] [address]68 Care Team Providers Care Acetylene Operator Name Role Phone Carlos Joyner MD Unavailable [phone] Jadon Murray MD Unavailable +[phone] Maru Villagomez RN Unavailable Unavailable Ignacia Duran MD Primary Care Provider [phone] Ang Slade MD Unavailable +[phone] Carlos Joyner MD Unavailable +[phone] Ang Slade MD Unavailable +[phone] Lakshmi Wilhelm-C Unavailable +[phone] Heladio Willoughby MD Primary Care Provider [phone] Heladio Willoughby MD Unavailable Alissa Perez PA-C Unavailable [phone] LaLakshmi morales-C Unavailable +[phone] Aidee Valero PA-C Unavailable +[phone] Carlos Joyner MD Unavailable +[phone] Jadon Floyd MD Unavailable [phone] Cayden Bejarano MD Unavailable Encounter Details Date Type Department Care Team (Late st Contact Info) Description 01/07/2023 [facility] Urology [address] [place] [address] Analisa Palacio RN Social History Tobacco Use [...] 03/03/2025 9:00 AM CDT Office [facility] [address] 3rd [place] [phone] Jadon Floyd MD [address] [place] [address] 03/23/2025 12:45 PM CDT Appointment [facility] [address] [place] [address] [address] [place] [address] Cayden Bejarano MD [address] [place] [address] [address] [place] [address] 03/23/2025 1:30 PM CDT Hospital Encounter [facility] [address] [place] [address] Cayden Bejarano MD [address] [place] [address] [address] [place] [address] 03/25/2025 10:20 AM CDT Virtual Visit [facility] [address] [place] [address] [place] [address]Y [address] [place] [address] 04/04/2025 12:00 PM MATERIALS PLANNING MANAGER Office Visit [facility] [place] [address] [place] [address] Sugey Mccoy, ZOOLOGY TECHNICAL OFFICER [facility] [address] [place], [place] [address]E [address] [place] [address] 05/30/2025 10:20 AM MATERIALS PLANNING MANAGER Appointment [facility] [address]41 [facility] [address] [place] [address] Carlos Joyner MD [address] [place] [address] 394145 05/31/2025 2:00 PM MATERIALS PLANNING MANAGER Virtual Visit [facility] [place] 909 [facility] 4th [place] [address] Carlos Joyner MD [address] [place] [address] 723835 07/25/2025 11:00 AM MATERIALS PLANNING MANAGER Office Visit [address] [address] [place] [address] [place] [address] documented as of this encounter Visit Diagnoses Not on filedocumented in this encounter Additional Health Concerns Infection Onset Date Last Indicated Resolved Time MRSA Comment:Added from external infection. Pt has had Staph infections but never MRSA from Care everywhere chart review. Removing MRSA 9.14.23 06/17/2019 02/06/2023 9:41 AM C DT documented as of this encounter Care Teams Acetylene Operator Relationship Specialty Start Date End Date Ignacia Duran MD PCP - General Pediatrics 01/20/20 03/04/23 [place] [address] [place] [address] PCP - General 03/05/23 Carlos Joyner MD [address] [place] [address] Urology 12/09/19 Jadon Murray MD [facility] 2530 [facility] 550 [place], [place] [phone] Referring Physician Pediatric Surgery 12/09/19 Maru Villagomez, RN Registered Nurse 12/10/19 Ang Slade MD [address] [place] [address] 765745 Urology 04/24/20 Carlos Joyner MD [address] [place] [address] 943885 Assigned Surgical Provider 12/24/20 Ang Slade MD [address] [place] [address] 394 [place] [address] Urology 12/18/22 Lakshmi Wilhelm PA-C [address] [place] [address] Physician Electrician Underground Urology 02/03/23 [place] [address] [place] [address] Assigned PCP 02/06/23 Alissa Perez PA-C [address] [place] [address]697 Physician Electrician Underground Surgery 09/04/23 Lakshmi Wilhelm PA-C [address] [place] [address] 516[address] Physician Electrician Underground Urology 09/16/23 Aidee Valero PA-C [address] [place] [address]65[address] Assigned Musculoskeletal Provider 04/17/24 02/14/25 Carlos Joyner MD [address] [place] [address] Urology 01/26/25 Jadon Floyd MD [address] [place] [address]999 Physician Physical Medicine and Rehabilitation 01/31/25 [place] [address] [place] [address] Assigned Musculoskeletal Provider 02/15/25 Tanisha Marlow 4120 [facility] [address] 03/30/24 documented as of this encounter
--- OUTSIDE RECORDS SUMMARY | 2025-03-01 02:56 | XMS_ITS | Encounter Summary ---
Author Organization [place] Address [address] [place] [address] Care Team Providers Care Extension Clerk Name Role Phone Carlos Joyner MD Unavailable + [phone] Jadon Murray MD Unavailable [phone] Maru Villagomez RN Unavailable Unavailable Ang Slade MD Unavailable +[phone] Carlos Joyner MD Unavailable +[phone] Ang Slade MD Unavailable [phone] Lakshmi Wilhelm-C Unavailable +[phone] Heladio Willoughby MD Primary Care Provider [phone] Heladio Willoughby MD Unavailable Alissa Perez PA-C Unavailable [phone] Lakshmi Wilhelm-C Unavailable +[phone] Aidee Valero PA-C Unavailable +[phone] Carlos Joyner MD Unavailable +[phone] Jadon Floyd MD Unavailable [phone] Cayden Bejarano MD Unavailable Encounter Details Date Type Department Care Team (Late st Contact Info) Description 09/29/2024 [facility] Clinic [place] 3[address] [facility] 4th [place] [address] Hattie Wing RN Social History [...] Health Services Physical Medicine and Rehabilitation Clinic [address] 3rd [place] [phone] Jadon Floyd MD [address] [place] [address] 03/23/2025 12:45 PM CDT Appointment [facility] [address]3883 [facility] [address] [place] [address] [place] [address] [place] [address] 03/23/2025 1:30 PM CDT Hospital Encounter [facility] [address] [place] [address] [place]den [place] [address] [place] [address] 03/25/2025 10:20 AM CDT Virtual Visit [facility] [place] [address] [place], [place] [address] [place] [address] [place] [address] [address] [place] [address] 04/04/2025 12:00 PM PIANO TEACHER Office Visit [facility] [place] [address] [place] [address] Sugey Mccoy, PATIENT LIAISON [facility] [address] [place] [address] [address] [place] [address] 05/30/2025 10:20 AM PIANO TEACHER Appointment [facility] Imaging 479[address] [facility] [address] [place] [address] Carlos Joyner MD [address] [place] [address] 276375 05/31/2025 2:00 PM PIANO TEACHER Virtual Visit [facility] [place] 909 [facility] 4th [place] [address] Carlos Joyner MD [address] [place] [address] 634555 07/25/2025 11:00 AM PIANO TEACHER Office [facility] [address] [place] [address] [place] [address] [place], [place] 3355768 documented as of this encounter Visit Diagnoses Not on filedocumented in this encounter Care Teams Extension Clerk Relationship Specialty Start [place] [address] [place] [address] PCP - General 03/05/23 Carlos Joyner MD [address] [place] [address] Urology 12/09/19 Jadon Murray MD [facility] 2530 [facility] 550 [place] [address] Referring Physician Pediatric Surgery 12/09/19 Maru Villagomez, RN Registered Nurse 12/10/19 Ang Slade MD 420 [facility] 394 [place], [place] 223175 MD Urology 04/24/20 Carlos Joyner MD [address] [place] [address] [id number] Assigned Surgical Provider 12/24/20 Agn Slade MD 420 [facility] 394 [place], [place] 950135 MD Urology 12/18/22 Lakshmi Wilhelm PA-C [address] [place] [address] 180255 Physician Gasoline Engine Inspector Urology 02/03/23 [place] [address] [place] [address] Assigned PCP 02/06/23 Alissa Perez PA-C [address] [place] [address] 050565 Physician Gasoline Engine Inspector Surgery 09/04/23 Lakshmi Wilhelm PA-C [address] [place] [address] 737125 Physician Gasoline Engine Inspector Urology 09/16/23 Aidee Valero PA-C [address] [place] [address] 70213 Assigned Musculoskeletal Provider 04/17/24 02/14/25 Carlos Joyner MD [address] [place] [address] Urology 01/26/25 Jadon Floyd MD [address] [place] [address]105 Physician Physical Medicine and Rehabilitation 01/31/25 [place] [address] [place] [address] Assigned Musculoskeletal Provider 02/15/25 Tanisha Marlow 4120 [facility] [address] 03/30/24 documented as of this encounter
--- OUTSIDE RECORDS SUMMARY | 2025-03-01 02:57 | XMS_ITS | Encounter Summary ---
Author Organization [place] Address [address] [place] [address] 11508 Care Team Providers Care Laundrette Owner Name Role Phone Carlos Joyner MD Unavailable + [phone] Jadon Murray MD Unavailable +[phone] Maru Villagomez RN Unavailable Unavailable Ang Slade MD Unavailable +[phone] Carlos Joyner MD Unavailable +[phone] Ang Slade MD Unavailable [phone] Lakshmi Wilhelm-C Unavailable +[phone] Heladio Willoughby MD Primary Care Provider [phone] Heladio Willoughby MD Unavailable Alissa Perez PA-C Unavailable [phone] MiLakshmi morales-C Unavailable +[phone] Aidee Valero PA-C Unavailable [phone] Carlos Joyner MD Unavailable +[phone] Jadon Floyd MD Unavailable [phone] Encounter Details Date Type Department Care [...] Answer Date Recorded PHQ-2 Score 0 09/13/2024 [facility] - Occupational [...] And Home Physical Medicine and Rehabilitation Clinic [address] [phone] Jadon Floyd MD [address] [place] [address] 03/23/2025 12:45 PM CDT Appointment [facility] [address] [facility] [address] [place] [address] [place] [address] [facility] [address] [place] [address] 03/23/2025 1:30 PM CDT Hospital Encounter [facility] [address] [place] [address] [place] [address] [facility] [address] [place] [address] 03/25/2025 10:20 AM CDT Virtual Visit [facility] [place] [address] [place], [place] [address] [place] [address] [place]den [place] [address] [place] [address] [address] [place] [address] 04/04/2025 12:00 PM SUPERVISOR MAPPING Office Visit [facility] [place] [address] [place] [address] DariusElvirginia Elder, ELEVATOR SERVICE TECHNICIAN [facility] [address] [place], [place] [address]344 05/30/2025 10:20 AM SUPERVISOR MAPPING Appointment [facility] [address] [place] [address] Carlos Joyner MD [address] [place] [address] 497165 05/31/2025 2:00 PM SUPERVISOR MAPPING Virtual Visit [facility] Urology [facility] [place] 909 [facility] 4th [place] [address] Carlos Joyner MD [address] [place] [place] [address] [phone] 07/25/2025 11:00 AM SUPERVISOR MAPPING Office [facility] [address] [place] [address] [place] [address] [place] [address] documented as of this encounter Visit Diagnoses Not on filedocumented in this encounter Care Teams Laundrette Owner Relationship Specialty Start Date End Date Helad[place] [address] [place] [address] PCP - General 03/05/23 Carlos Joyner MD [address] [place] [address] [phone] Urology 12/09/19 Jadon Murray MD [facility] 2530 [facility] 550 [place] [address] Referring Physician Pediatric Surgery 12/09/19 Maru Villagomez, RN Registered Nurse 12/10/19 Ang Slade MD [address] [place] [address] 394 [place] [address] Urology 04/24/20 Carlos Joyner MD [address] [place] [address] 496135 Assigned Surgical Provider 12/24/20 Ang Slade MD [address] [place] [address] 394 [place] [address] Urology 12/18/22 Lakshmi Wilhelm PA-C [address] [place] [address] 141345 Physician Assistant Project Engineer Urology 02/03/23 [place] [address] [place] [address] Assigned PCP 02/06/23 Alissa Perez PA-C [address] [place] [address] 904705 Physician Assistant Project Engineer Surgery 09/04/23 Lakshmi Wilhelm PA-C [address] [place] [address] 014965 Physician Assistant Project Engineer Urology 09/16/23 Aidee Valero PA-C [address] [place] [address] 400845 Assigned Musculoskeletal Provider 04/17/24 02/14/25 Carlos Joyner MD [address] [place] [address] 871445 Urology 01/26/25 Jadon Floyd MD [address] [place] [address] 959405 Physician Physical Medicine and Rehabilitation 01/31/25 Tanisha Marlow 4120 [facility] [address] 03/30/24 documented as of this encounter
--- OUTSIDE RECORDS SUMMARY | 2025-03-01 02:57 | XMS_ITS | Encounter Summary ---
Author Organization [place] Address [address] [place] [address] Care Team Providers Care Turning Machine Operator Name Role Phone Carlos Joyner MD Unavailable +[phone] Jadon Murray MD Unavailable +[phone] Maru Villagomez RN Unavailable Unavailable Ang Slade MD Unavailable +[phone] Carlos Joyner MD Unavailable +[phone] Ang Slade MD Unavailable +[phone] Lakshmi WilhelmC Unavailable [phone] Heladio Willoughby MD Primary Care Provider [phone] Heladio Willoughby MD Unavailable Alissa Perez-Juan A Unavailable [phone] Lakshmi Wilhelm PA-C Unavailable +[phone] Carlos Joyner MD Unavailable +[phone] Jadon Floyd MD Unavailable [phone] Cayden Bejarano MD Unavailable Encounter Details [...] Description 03/03/2025 9:00 AM CDT Office Visit [facility] Physical Medicine and Rehabilitation Clinic [address] [phone] Jadon Floyd MD [address] [place] [address] 03/23/2025 12:45 PM CDT Appointment [facility] [address]55 [facility] [address] [place] [address] [place] [address] [place] [address] 03/23/2025 1:30 PM CDT Hospital Encounter [facility] [address] [place] [address] Cayden Bejarano [place] [address] [place] [address] 03/25/2025 10:20 AM CDT Virtual Visit [facility] [place] [address] [place] [address] Cayden Bejarano [place] 41133[address] [place] [address] 04/04/2025 12:00 PM OFFICE ADMINISTRATIVE ASSISTANT Office Visit [facility] [place] [address] [place] [address] Darius Elvirginia Elder, STRAIGHTENING PRESS OPERATOR HELPER [facility] [address] [place], [place] 779984 05/30/2025 10:20 AM OFFICE ADMINISTRATIVE ASSISTANT Appointment [facility] Imaging [address] [place] [address] Carlos Joyner MD [address] [place] [address] 712645 05/31/2025 2:00 PM OFFICE ADMINISTRATIVE ASSISTANT Virtual Visit [facility] Urology Clinic [place] 909 [facility] 4th [place] [address] Carlos Joyner MD [address] [place] [address] 07/25/2025 11:00 AM OFFICE ADMINISTRATIVE ASSISTANT Office Visit [facility] [address] [place] [address] [place] [address] [place] [address] documented as of this encounter Visit Diagnoses Not on filedocumented in this encounter Care Teams Turning Machine Operator Relationship Specialty Start [place] [address] [place] [address] PCP - General 03/05/23 aCrlos Joyner MD [address] [place] [address] Urology 12/09/19 Jadon Murray MD [facility] [address] [facility] 550 [place] [address] Referring Physician Pediatric Surgery 12/09/19 Maru Villagomez, RN Registered Nurse 12/10/19 Ang Slade MD [address] [place] [address] 394 [place], [place] 427015 Urology 04/24/20 Carlos Joyner MD [address] [place] [address] 513155 Assigned Surgical Provider 12/24/20 Ang Slade MD [address] [place] [address] 804735 Urology 12/18/22 Lakshmi Wilhelm PA-C [address] [place] [address] 913435 Physician Polishing Machine Operator Helper Urology 02/03/23 [place] [address] [place] [address] Assigned PCP 02/06/23 Alissa Perez PA-C [address] [place] [address] 124495 Physician Polishing Machine Operator Helper Surgery 09/04/23 Lakshmi Wilhelm PA-C [address] [place] [address] 141155 Physician Polishing Machine Operator Helper Urology 09/16/23 Carlos Joyner MD 909 [place], [place] 801255 Urology 01/26/25 Jadon Floyd MD 9 [place], [place] 681295 Physician Physical Medicine and Rehabilitation 01/31/25 [place] [address] [place] [address] Assigned Musculoskeletal Provider 02/15/25 Tanisha Marlow 4120 [facility] [address] 03/30/24 documented as of this encounter
--- OUTSIDE RECORDS SUMMARY | 2025-03-01 02:57 | XMS_ITS | Encounter Summary ---
Author Organization [place] Address [address] [place] [address] 18772 Care Team Providers Care Social Scientist Name Role Phone Carlos Joyner MD Unavailable [phone] Jadon Murray MD Unavailable +[phone] Maru Villagomez RN Unavailable Unavailable Ang Slade MD Unavailable +[phone] Carlos Joyner MD Unavailable +[phone] Ang Slade MD Unavailable +[phone] Lakshmi Wilhelm-C Unavailable +[phone] Heladio Willoughby MD Primary Care Provider [phone] Heladio Willoughby MD Unavailable Alissa Perez PA-C Unavailable [phone] Lakshmi Wilhelm-C Unavailable +[phone] Aidee Valero PA-C Unavailable +[phone] Encounter Details Date Type Department Care Team (Late st Contact Info) Description 11/22/2024 Results Follow-Up [facility] Urology Clinic [address] 4th [place] [address] Rosita Velasco, RN Dx: Kidney [...] Answer Date Recorded PHQ-2 Score 0 09/13/2024 [facility] - Occupational [...] Center Physical Medicine and Rehabilitation Clinic [address] [phone] Jadon Floyd MD [address] [place] [address] 03/23/2025 12:45 PM CDT Appointment [facility] Imaging 31996 [facility] [address] [place] [address] [place] [address] [place] [address] 03/23/2025 1:30 PM CDT Hospital Encounter [facility] Imaging [address] [place] [address]15 [place] [address] [facility] [address] [place] [address] 03/25/2025 10:20 AM CDT Virtual Visit [facility] Sports Medicine Clinic [place] [address] [place], [place] [address] [place] [address] [place] [address] [place] [address] 04/04/2025 12:00 PM NEUROSURGERY SPINE PHYSICIAN Office Visit [facility] [place] [address] [place] [address] Sugey Mccoy, ELECTRONICS LEAD [facility] [address] [place], [place] [address] 05/30/2025 10:20 AM NEUROSURGERY SPINE PHYSICIAN Appointment [facility] Imaging [address]34 [facility] [address] [place] [address] Carlos Joyenr MD [address] [place] [address] 033245 05/31/2025 2:00 PM NEUROSURGERY SPINE PHYSICIAN Virtual Visit [facility] Urology Clinic [place] 909 [facility] 4th [place] [address] Carlos Joyner MD [address] [place] [address] [phone] 07/25/2025 11:00 AM NEUROSURGERY SPINE PHYSICIAN Office Visit [facility] [address] [place] [address] [place] [address] [place] [address] documented as of this encounter Visit Diagnoses Diagnosis Kidney stone- Primary Calculus of kidney documented in this encounter Care Teams Social Scientist Relationship Specialty [place] [address] [place] [address] PCP - General 03/05/23 Carlos Joyenr MD [address] [place] [address] Urology 12/09/19 Jadon Murray MD [facility] 2530 [facility] 550 [place] [address] Referring Physician Pediatric Surgery 12/09/19 Maru Villagomez, RN Registered Nurse 12/10/19 Ang Slade MD 420 [facility] 394 [place], [place] 947825 Urology 04/24/20 Carlos Joyner MD [address] [place] [address] 372245 Assigned Surgical Provider 12/24/20 Ang Slade MD 420 [facility] 394 [place], [place] 284665 Urology 12/18/22 Lakshmi Wilhelm PA-C [address] [place] [address] 254195 Physician Beef Cattle Grazier Urology 02/03/23 [place] [address] [place] [address] Assigned PCP 02/06/23 Alissa Perez PA-C [address] [place] [address] 394785 Physician Beef Cattle Grazier Surgery 09/04/23 Lakshmi Wilhelm PA-C [address] [place] [address] Physician Beef Cattle Grazier Urology 09/16/23 Aidee Valero PA-C 909 [place] [address] Assigned Musculoskeletal Provider 04/17/24 02/14/25 Tanisha Marlow 4120 [facility] [address] 03/30/24 documented as of this encounter
--- OUTSIDE RECORDS SUMMARY | 2025-03-01 02:57 | XMS_ITS | Encounter Summary ---
Author Organization [place] Address [address] [place] [address] Care Team Providers Care Pt Escort Name Role Phone Carlos Joyner MD Unavailable +[phone] Jadon Murray MD Unavailable +[phone] Maru Villagomez RN Unavailable Unavailable Ang Slade MD Unavailable +[phone] Carlos Joyner MD Unavailable +[phone] Ang Slade MD Unavailable +[phone] Lakshim Wilhelm-C Unavailable +[phone] Heladio Willoughby MD Primary Care Provider [phone] Heladio Willoughby MD Unavailable Alissa Perez PA-C Unavailable [phone] Lakshmi Wilhelm-C Unavailable +[phone] Aidee Valero PA-C Unavailable +[phone] Carlos Joyner MD Unavailable +[phone] Jadon Floyd MD Unavailable +[phone] Cayden Bejarano MD Unavailable Encounter Details Date Type Department Care Team (Late st Contact Info) Description 11/03/2024 [facility] Urology [place] [id number] [facility] 4th [place] [address] Carlos Joyner MD 9 [place] [address] Social History Tobacco Use Types Packs/Day Years [...] Description 03/03/2025 9:00 AM CDT Office Visit [facility] [address] [phone] Jadon Floyd MD [address] [place] [address] 03/23/2025 12:45 PM CDT Appointment [facility] [address] [facility] [address] [place] [address] [place] [address] [place] [address] 03/23/2025 1:30 PM CDT Hospital Encounter [facility] Imaging [address] [place] [address] [place] [address] [place] [address] 03/25/2025 10:20 AM CDT Virtual Visit [facility] [place] [address] [place], [place] [address] [place] [address] [place] [address] [place] [address] 04/04/2025 12:00 PM GENETICS NURSE Office Visit [facility] [place] [address] [place] [address] Sugey Mccoy, PROPELLER TESTER CONTINUOUS DRYOUT OPERATOR HELPER [address] [place], [place] [address] 05/30/2025 10:20 AM GENETICS NURSE Appointment [facility] Imaging [address] [place] [address] Carlos Joyner MD [address] [place] [address] 931055 05/31/2025 2:00 PM GENETICS NURSE Virtual Visit [facility] [place] [address]09 [facility] 4th [place] [address] Carlos Joyner MD [address] [place] [address] [phone] 07/25/2025 11:00 AM GENETICS NURSE Office Visit [address] [phone] [place] [address] [place] [address] documented as of this encounter Visit Diagnoses Not on filedocumented in this encounter Care Teams Pt Escort Relationship Specialty Start Date [place] [id number] [place] [address] PCP - General 03/05/23 Carlos Joyner MD [address] [place] [address] Urology 12/09/19 Jadon Murray MD [facility] [address] [facility] 550 [place] [address] Referring Physician Pediatric Surgery 12/09/19 Maru Villagomez, RN Registered Nurse 12/10/19 Ang Slade MD 420 [facility] 394 [place], [place] 531425 Urology 04/24/20 Carlos Joyner MD [address] [place] [address] [phone] Assigned Surgical Provider 12/24/20 Ang Slade MD [address] [place] [address] 394 [place] [address] Urology 12/18/22 Lakshmi Wilhelm PA-C [address] [place] [address] 259715 Physician Cinder Block Maker Urology 02/03/23 [place] [address] [place] [address] Assigned PCP 02/06/23 Alissa Perez PA-C [address] [place] [address] 144605 Physician Cinder Block Maker Surgery 09/04/23 Lakshmi Wilhelm PA-C [address] [place] [address] 158745 Physician Cinder Block Maker Urology 09/16/23 Aidee Valero PA-C [address] [place] [address] 39069 Assigned Musculoskeletal Provider 04/17/24 02/14/25 Carlos Joyner MD [address] [place] [address] Urology 01/26/25 Jadon Floyd MD [address] [place] [address] 083055 Physician Physical Medicine and Rehabilitation 01/31/25 [place] [address] [place] [address] Assigned Musculoskeletal Provider 02/15/25 Tanisha Marlow [address] [place] [address] 03/30/24 documented as of this encounter
--- OUTSIDE RECORDS SUMMARY | 2025-03-01 02:57 | XMS_ITS | Encounter Summary ---
Author Organization [place] Address [address] [place] [address] Care Team Providers Care Fruit Culler Name Role Phone Carlos Joyner MD Unavailable +[phone] Jadon Murray MD Unavailable +[phone] Maru Villagomez RN Unavailable Unavailable Ang Slade MD Unavailable +[phone] Carlos Joyner MD Unavailable +[phone] Ang Slade MD Unavailable +[phone] Lakshmi WilhelmC Unavailable +[phone] Heladio Willoughby MD Primary Care Provider [phone] Heladio Willoughby MD Unavailable Alissa Perez-Juan A Unavailable [phone] Lakshmi Wilhelm PA-C Unavailable +[phone] Carlos Joyner MD Unavailable +[phone] Jaodn Floyd MD Unavailable [phone] Cayden Bejarano MD Unavailable Encounter Details [...] Answer Date Recorded PHQ-2 Score 0 09/13/2024 [facility] [...] 03/03/2025 9:00 AM CDT Office Visit [facility] Medicine [facility] Rehabilitation [facility] [address] [phone] Jadon Floyd MD [address] [place] [address] 03/23/2025 12:45 PM CDT Appointment [facility] [address] [facility] [address] [place] [address] [place] [address] [place] [address] 03/23/2025 1:30 PM CDT Hospital Encounter [facility] [address] [place] [address] [place]den [place]jar[place] [address] [place] [address] 03/25/2025 10:20 AM CDT Virtual Visit [facility] [place] [address] [place] [address] Cayden [place]jar[place] [address] [place] [address] 04/04/2025 12:00 PM GREEN COFFEE BLENDER Office Visit [facility] [place] [address] [place] [address] Darius Elvirginia Elder, EXECUTIVE CHAIRMAN [facility] [address] [place], [place] 9[address] 05/30/2025 10:20 AM GREEN COFFEE BLENDER Appointment [facility] Imaging [address] [place] [phone] Carlos Joyner MD [address] [place] [address] 620405 05/31/2025 2:00 PM GREEN COFFEE BLENDER Virtual Visit [facility] [place] 909 [facility] 4th [place] [phone] Carlos Joyner MD [address] [place] [address] 07/25/2025 11:00 AM GREEN COFFEE BLENDER Office [facility] [address] [place] [phone] [place] [address] [place] [address] documented as of this encounter Visit Diagnoses Not on filedocumented in this encounter Care Teams Fruit Culler Relationship Specialty [place] [address] [place] [address] PCP - General 03/05/23 Carlos Joyner MD [address] [place] [address] Urology 12/09/19 Jadon [place] MD [facility] 2530 [facility] 550 [place] [address] Referring Physician Pediatric Surgery 12/09/19 Maru Villagomez, RN Registered Nurse 12/10/19 Ang Slade MD [address] [place] [address] 394 [place], [place] 730415 Urology 04/24/20 Carlos Joyner MD [address] [place] [address] 493555 Assigned Surgical Provider 12/24/20 Ang Slade MD [address] [place] [address] 991195 Urology 12/18/22 Lakshmi Wilhelm PA-C [address] [place] [address] 664265 Physician Insurance Business Analyst Urology 02/03/23 [place] [address] [place] [address] Assigned PCP 02/06/23 Alissa Perez PA-C [address] [place] [address] 401185 Physician Insurance Business Analyst Surgery 09/04/23 Lakshmi Wilhelm PA-C [address] [place] [address] 644755 Physician Insurance Business Analyst Urology 09/16/23 Carlos Joyner MD 909 [place], [place] 253945 Urology 01/26/25 Jadon Floyd MD 9 [place], [place] 021335 Physician Physical Medicine and Rehabilitation 01/31/25 [place] [address] [place] [address] Assigned Musculoskeletal Provider 02/15/25 Tanisha Marlow [address] [facility] [place] [address] 03/30/24 documented as of this encounter
--- OUTSIDE RECORDS SUMMARY | 2025-03-01 02:57 | XMS_ITS | Encounter Summary ---
Author Organization [place] Address [address] [place] [address] Care Team Providers Care Customs Compliance Manager Name Role Phone Carlos Joyner MD Unavailable + [phone] Jadon Murray MD Unavailable +[phone] Maru Villagomez RN Unavailable Unavailable Ang Slade MD Unavailable +[phone] Carlos Joyner MD Unavailable +[phone] Ang Slade MD Unavailable [phone] Lakshmi Wilhelm-C Unavailable +[phone] Heladio Willoughby MD Primary Care Provider +[phone] Heladio Willoughby MD Unavailable Alissa Perez PA-C Unavailable [phone] Lakshmi Wilhelm-C Unavailable +[phone] Aidee Valero PA-C Unavailable +[phone] Carlos Joyner MD Unavailable +[phone] Jadon Floyd MD Unavailable +[phone] Cayden Bejarano MD Unavailable Encounter Details Date Type Department Care Team (Late st Contact Info) Description 02/08/2025 [facility] Sports Medicine [address] [place], [place] 198[address] [place] [address] [place] [address] Social History Tobacco Use Types Packs/Day Years [...] Answer Date Recorded PHQ-2 Score 0 09/13/2024 [facility] ional [facility] - [...] Center Physical Medicine and Rehabilitation Clinic [address] [phone] Jadon Floyd MD [address] [place] [address] 645705 03/23/2025 12:45 PM CDT Appointment [facility] Imaging [address] [place] [address] [place]den [place]jar[place] [address] [place] [address] [address] [place] [address] 03/23/2025 1:30 PM CDT Hospital Encounter [facility] [address] [place] [address]-8275[address] [place] [address] [place] [address] 03/25/2025 10:20 AM CDT Virtual Visit [facility] Sports Medicine [facility] [place] [address] [facility] [address] [place] [address] [place] [address] [place] [address] 04/04/2025 12:00 PM PCT Office Visit [facility] [place] [address] [facility] [place] [address] Sugey Mccoy APRN [facility] [address] [place] [address] [address] [place] [address] 05/30/2025 10:20 AM PCT Appointment [facility] [address] [facility] [address] [place] [address] Carlos Joyner MD [address] [place] [address] 941285 05/31/2025 2:00 PM PCT Virtual Visit [facility] Urology Clinic [address] 4th [place] [address] Carlos Joyner MD [address] [place] [address] 07/25/2025 11:00 AM PCT Office Visit [place] [address] [place] [address] [place] [address] [place] [address] documented as of this encounter Visit Diagnoses Not on filedocumented in this encounter Care Teams Customs Compliance Manager Relationship Specialty [place] [address] [place] [address] PCP - General 03/05/23 Carlos Joyner MD [address] [place] [address] 132655 Urology 12/09/19 Jadon Murray MD [facility] [address] [phone] Referring Physician Pediatric Surgery 12/09/19 Maru Villagomez, RN Registered Nurse 12/10/19 Ang Slade MD [address] [place] [address] 232925 Urology 04/24/20 Carlos Joyner MD [address] [place] [address] 649745 Assigned Surgical Provider 12/24/20 Ang Slade MD [address] [place] [address] Urology 12/18/22 Lakshmi Wilhelm PA-C [address] [place] [address] 749475 Physician Form Builder Urology 02/03/23 [place] [address] [place] [address] Assigned PCP 02/06/23 Alissa Perez PA-C [address] [place] [address] 26844 Physician Form Builder Surgery 09/04/23 Lakshmi Wilhelm PA-C [address] [place] [address] 81986 Physician Form Builder Urology 09/16/23 Aidee Valero PA-C [address] [place] [address] 29787 Assigned Musculoskeletal Provider 04/17/24 02/14/25 Carlos Joyner MD [address] [place] [address] Urology 01/26/25 Jadon Floyd MD [address] [place] [address] Physician Physical Medicine and Rehabilitation 01/31/25 [place] [address] [place] [address] Assigned Musculoskeletal Provider 02/15/25 Tanisha Marlow [address] [facility] [address] 03/30/24 documented as of this encounter
--- OUTSIDE RECORDS SUMMARY | 2025-03-01 02:57 | XMS_ITS | Encounter Summary ---
Author Organization [place] Address [address] [place] [address]58 Care Team Providers Care Studio Sales Associate Name Role Phone Carlos Joyner MD Unavailable + [phone] Jadon Murray MD Unavailable +[phone] Maru Villagomez RN Unavailable Unavailable Ang Slade MD Unavailable +[phone] Carlos Joyner MD Unavailable +[phone] Ang Slade MD Unavailable +[phone] Lakshmi Wilhelm-C Unavailable +[phone] Heladio Willoughby MD Primary Care Provider +[phone] Heladio Willoughby MD Unavailable Alissa Perez PA-C Unavailable [phone] TxLakshmi morales-C Unavailable +[phone] Aidee Valero PA-C Unavailable [phone] Carlos Joyner MD Unavailable +[phone] Jadon Floyd MD Unavailable +[phone] Reason for Visit * Reason Onset Date Comments Forms 02/03/2025 OT Outpatient/Th oratic Spina bifida- [facility] Encounter Details Date Type Department Care Team (Late st Contact Info) Description 02/03/2025 [facility] [address] [place] [address] [place] [address] [address] [place] [id number] Forms (OT Outpatient/Thoratic Spina bifida- [facility]/) Social History Tobacco Use Types [...] Answer Date Recorded PHQ-2 Score 0 09/13/2024 [facility] - [...] - 02/03/2025 9:28 AM CDT Faxed to [facility] and abstracting. Placed in tc basket at [facility]. Sarika Prescott Expanding Machine Operator- [place] [address] Primary Care- [place] [facility] * Telephone Encounter - Heladio Willoughby MD - 02/03/2025 8:26 AM CDT Signed. Placed in outgoing box. MD [facility] * Telephone Encounter - Sarika Dunaway - 02/03/2025 7:47 AM CDT OT orders in provider basket for signature. Sarika Prescott, Expanding Machine Operator- [facility] 2 Primary Care- [place] [facility] * Telephone Encounter - Zoe Johnson - 02/03/2025 7:00 AM CDT Forms/Letter Request Type of form/letter: OTHER: [facility] Thoratic Spina bifida OT Outpatient Do we have the form/letter: Yes: Who is the form from? Where did/will the form come from? form was faxed in When is form/letter needed by: How would you like the form/letter returned: Zoe Johnson Patient Digital Computer Operator documented in this encounter Plan of Treatment Upcoming Encounters Date Type Department Care Team (Late st Contact Info) Description 03/03/2025 9:00 AM CDT Office Visit [facility] Physical Medicine and Rehabilitation Clinic [address] [phone] Jadon Floyd MD [address] [place] [address] 03/23/2025 12:45 PM CDT Appointment [facility] [address] [facility] [address] [place] [address] [place] [address] [place] [address] 03/23/2025 1:30 PM CDT Hospital Encounter [facility] [address] [place] [address] [place] [address] [facility] [address] [place] [address] 03/25/2025 10:20 AM CDT Virtual Visit [facility] [place] [address] [facility] [address] [place] [address] [place] [address] [facility] [address] [place] [address] 04/04/2025 12:00 PM ELECTRICAL LINE WORKER Office Visit [facility] [place] [address] [place] [address] Sugey Mccoy, DEPLOYMENT ENGINEERCUYUNA REGIONAL [facility] [address] [place] [address] [address] [place] [address] 05/30/2025 10:20 AM ELECTRICAL LINE WORKER Appointment [facility] Imaging [address] [facility] [address] [place] [address] Carlos Joyner MD [address] [place] [address] 157175 05/31/2025 2:00 PM ELECTRICAL LINE WORKER Virtual Visit [facility] Urology Clinic [address] 4th [place] [address] Carlos Joyner MD [address] [place] [address] 769595 07/25/2025 11:00 AM ELECTRICAL LINE WORKER Office Visit [address] [address] [place] [address] [place] [address] documented as of this encounter Visit Diagnoses Not on filedocumented in this encounter Care Teams Studio Sales Associate Relationship Specialty [place] [address] [place] [address] PCP - General 03/05/23 Carlos Joyner MD [address] [place] [address] Urology 12/09/19 Jadon Murray MD [facility] 2530 [facility] [address] [address] Referring Physician Pediatric Surgery 12/09/19 Maru Villagomez, RN Registered Nurse 12/10/19 Ang Slade MD [address] [place] [address] 647755 Urology 04/24/20 Carlos Joyner MD [address] [place] [address] 019125 Assigned Surgical Provider 12/24/20 Agn Slade MD [address] [place] [address] [phone] Urology 12/18/22 Lakshmi Wilhelm PA-C [address] [place] [address] [phone] Physician Barrel Cooper Urology 02/03/23 [place] [address] [place] [address] Assigned PCP 02/06/23 Alissa Perez PA-C [address] [place] [address] Physician Barrel Cooper Surgery 09/04/23 Lakshmi Wilhelm PA-C [address] [place] [address] Physician Barrel Cooper Urology 09/16/23 Aidee Valero PA-C [address] [place] [address] Assigned Musculoskeletal Provider 04/17/24 02/14/25 Carlos Joyner MD [address] [place] [address] Urology 01/26/25 Jadon Floyd MD [address] [place] [address] Physician Physical Medicine and Rehabilitation 01/31/25 Tanisha Marlow [facility] [address] 03/30/24 documented as of this encounter
--- OUTSIDE RECORDS SUMMARY | 2025-03-01 02:57 | XMS_ITS | Encounter Summary ---
Author Organization [facility] Address [address] [place] [address] 40184 Care Team Providers Care Tobacco Baler Name Role Phone Carlos Joyner MD Unavailable [phone] Jadon Murray MD Unavailable [phone] Maru Villagomez RN Unavailable Unavailable Ang Slade MD Unavailable +[phone] Carlos Joyner MD Unavailable +[phone] Ang Slade MD Unavailable [phone] Lakshmi WilhelmC Unavailable +[phone] Heladio Willoughby MD Primary Care Provider [phone] Heladio Willoughby MD Unavailable Alissa Perez PA-Juan A Unavailable [phone] Lakshmi Wilhelm PA-C Unavailable +[phone] Carlos Joyner MD Unavailable +[phone] Jadon Floyd MD Unavailable +[phone] Cayden Bejarano MD Unavailable Reason for Visit * Reason Onset Date Comments Appointment 02/16/2025 TE on 02/08/25 in structing Pt to schedule with Elissa Martinez CNP. Search Marketing Specialist does not have access to this provider. Encounter Details Date Type Department Care Team (Late st Contact Info) Description 02/16/2025 Telephone [facility] Urology [address]th [place] [phone] Carlos Joyner MD [address] [place] [address] [phone] Appointment (TE on 02/08/25 instructing Pt to schedule with Elissa Martinez CNP. Search Marketing Specialist does not have access to this provider. [...] Date Recorded PHQ-2 Score 0 09/13/2024 [facility] [place] of Occupat ional Health - Occupational Stress [...] Pt to schedule with Elissa Martinez CNP. Search Marketing Specialist does not have access to this provider. Please call to discuss. Thank you. Action Taken: Message routed to: [facility] Uro Travel Screening: Not Applicable Date of Service: documented in this encounter Plan of Treatment Upcoming Encounters Date Type Department Care Team (Late st Contact Info) Description 03/03/2025 9:00 AM CDT Office Visit [facility] Physical Medicine [facility] Rehabilitation [facility] [address] 3rd [place] [phone] Jadon Floyd MD [address] [place] [address] 153655 03/23/2025 12:45 PM CDT Appointment [facility] [address] [facility] [address] [place] [phone] Cayden Bejarano MD [address] [place] [address] [address] [place] [address] 03/23/2025 1:30 PM CDT Hospital Encounter [facility] [address] [place] [address] Cayden Bejarano MD [address] [place], [place] [address]A[address] [place] [address] 03/25/2025 10:20 AM CDT Virtual Visit [facility] [place] [address] [place] [address] Drive [address] [place] [address] [place] [address] [place] [address] 04/04/2025 12:00 PM INSOLE BUFFER Office Visit [facility] [address] [phone] Sugey Mccoy, HANDLE SEWER [address] 873004 05/30/2025 10:20 AM INSOLE BUFFER Appointment [facility] [address] [place] [address] Carlos Joyner MD [address] [place] [address] 123535 05/31/2025 2:00 PM INSOLE BUFFER Virtual Visit [facility] U[facility] Clinic [address] 4th [place] [address] Carlos Joyner MD [address] [place] [address] 987325 07/25/2025 11:00 AM INSOLE BUFFER Office Visit [facility] [address] [place] [address] [place] [address] [place], [place] [phone] documented as of this encounter Visit Diagnoses Not on filedocumented in this encounter Care Teams Tobacco Baler Relationship Specialty Start [place] [address] [place] [address] PCP - General 03/05/23 Carlos Joyner MD [address] [place] [address] 04886 Urology 12/09/19 Jadon Murray MD [facility] [address] [address] Referring Physician Pediatric Surgery 12/09/19 Maru Villagomez, OTILIO Registered Nurse 12/10/19 Ang Slade MD [address] [place] [address] 921475 Urology 04/24/20 Carlos Joyner MD [address] [place] [address] 106755 Assigned Surgical Provider 12/24/20 Ang Slade MD [address] [place] [address] 90921 Urology 12/18/22 Lakshmi Wilhelm PA-C [address] [place] [address] 42810 Physician Intrusion Analyst Urology 02/03/23 [place] [address] [place] [address] Assigned PCP 02/06/23 Alissa Perez PA-C [address] [place] [address] 757915 Physician Intrusion Analyst Surgery 09/04/23 Lakshmi Wilhelm PA-C [address] [place] [address] 66031 Physician Intrusion Analyst Urology 09/16/23 Carlos Joyner MD [address] [place] [address] 013425 Urology 01/26/25 Jadon Floyd MD [address] [place] [address] 308665 Physician Physical Medicine and Rehabilitation 01/31/25 [place] [address] [place] [address] Assigned Musculoskeletal Provider 02/15/25 Tanisha Marlow 4120 [facility] [address] 03/30/24 documented as of this encounter
--- OUTSIDE RECORDS SUMMARY | 2025-03-01 02:57 | XMS_ITS | Encounter Summary ---
Author Organization [facility] Address [address] [place] [address] Care Team Providers Care Manager Of Planning Name Role Phone Carlos Joyner MD Unavailable [phone] Jadon Murray MD Unavailable +[phone] Maru Villagomez RN Unavailable Unavailable Ang Slade MD Unavailable +[phone] Carlos Joyner MD Unavailable +[phone] Ang Slade MD Unavailable [phone] Lakshmi Wilhelm-C Unavailable +[phone] Heladio Willoughby MD Primary Care Provider [phone] Heladio Willoughby MD Unavailable Alissa Perez PA-C Unavailable [phone] [facility]ak[facility] carey PA-C Unavailable +[phone] Aidee Valero PA-C Unavailable +[phone] Carlos Joyner MD Unavailable +[phone] Jadon Floyd MD Unavailable [phone] Reason for Visit * Reason Onset Date Comments Prior Auth - Medication 02/03/2025 Acetohyd roxamic Acid (LITHOSTAT) 250 MG TABS - PA APPROVED Encounter Details Date Type Department Care Team (Late st Contact Info) Description 02/03/2025 [facility] [place] [id number] [address] [address] Carlos Joyner MD 909 [place] [address] Prior Auth - Medication (Acetohydroxamic [...] Answer Date Recorded PHQ-2 Score 0 09/13/2024 [facility] of Occupat ional Health [...] 05/25/2025 Approved Dose/Quantity: Reference #: Insurance Company: [employer] Part D - Expected CoPay: $ CoPay Card Available: No Financial Assistance Needed: Which Pharmacy is filling the prescription: [id number] [place] [address] Pharmacy Notified: YES Patient Notified: Instructed pharmacy to notify patient when script is ready to continuous pickling line pickler/ship. * Telephone Encounter - Cirilo Ferreira - [...] Part D - Pharmacy Filling the Rx: [facility] [id number] [place] [address] Filling Pharmacy Filling Pharmacy Start Date: 02/03/2025 Outgoing fax to insurance: Received question set for PA already in process. Answered question set and faxed back to [employer] via Right fax. I attached chart notes as well. documented in this encounter Plan of Treatment Upcoming Encounters Date Type Department Care Team (Late st Contact Info) Description 03/03/2025 9:00 AM CDT Office Visit [facility] Physical Medicine and Rehabilitation Clinic [address] [phone] Jadon Floyd MD [address] [place] [address] 346945 03/23/2025 12:45 PM CDT Appointment [facility] [address] [place] [address] [place] [address] [place] [address] 03/23/2025 1:30 PM CDT Hospital Encounter [facility] [address] [facility] [address] [place] [address] [place] [address] [place] [address] 03/25/2025 10:20 AM CDT Virtual Visit [facility] [place] [address] [place] [address] [place] [address] [place] [address] 04/04/2025 12:00 PM INTERNAL AUDITOR Office Visit [facility] Sleep [facility] [address] [place] [address] [phone] Sugey Mccoy, AUTOMOTIVE SALES REPRESENTATIVE [address] 973144 05/30/2025 10:20 AM INTERNAL AUDITOR Appointment [facility] [address] [facility] [address] [place] [address] Carlos Joyner MD [address] [place] [address] 351975 05/31/2025 2:00 PM INTERNAL AUDITOR Virtual Visit [facility] Urology [address] 4th [place] [phone] Carlos Joyner MD [address] [place] [address] 171615 07/25/2025 11:00 AM INTERNAL AUDITOR Office Visit [address] [address] [place] [address] [place] [address] documented as of this encounter Visit Diagnoses Not on filedocumented in this encounter Care Teams Manager Of Planning Relationship Specialty Start [place] [address] [place] [phone] PCP - General 03/05/23 Carlos Joyner MD [address] [place] [address] 584575 Urology 12/09/19 Jadon [place] MD [facility] 2530 [facility] 550 [place], [place] [phone] Referring Physician Pediatric Surgery 12/09/19 Maru Villagomez, RN Registered Nurse 12/10/19 Ang Slade MD [address] [place] [address] 859745 Urology 04/24/20 Carlos Joyner MD [address] [place] [address] 960195 Assigned Surgical Provider 12/24/20 Ang Slade MD [address] [place] [address] 776[address] Urology 12/18/22 Lakshmi Wilhelm PA-C [address] [place] [address] 18076 Physician Tire Buster Urology 02/03/23 [place] [address] [place] [address] Assigned PCP 02/06/23 Alissa Perez PA-C [address] [place] [address] 99180 Physician Tire Buster Surgery 09/04/23 Lakshmi Wilhelm PA-C [address] [place] [address] 42989 Physician Tire Buster Urology 09/16/23 Aidee Valero PA-C [address] [place] [address] 42305 Assigned Musculoskeletal Provider 04/17/24 02/14/25 Carlos Joyner MD [address] [place] [address] 760[address] Urology 01/26/25 Jadon Floyd MD [address] [place] [address] 12591 Physician Physical Medicine and Rehabilitation 01/31/25 Tanisha Marlow 4120 [facility] [address] 03/30/24 documented as of this encounter
--- OUTSIDE RECORDS SUMMARY | 2025-03-01 02:57 | XMS_ITS | Encounter Summary ---
Author Organization [facility] Address [address] [place] [address] 7[address]70 Care Team Providers Care Risk Lead Name Role Phone Carlos Joyner MD Unavailable [phone] Jadon Murray MD Unavailable [phone] Maru Villagomez RN Unavailable Unavailable Ang Slade MD Unavailable [phone] Carlos Joyner MD Unavailable +[phone] Ang Slade MD Unavailable [phone] Lakshmi Wilhelm-C Unavailable [phone] Heladio Willoughby MD Primary Care Provider [phone] Heladio Willoughby MD Unavailable Alissa Perez PA-C Unavailable [phone] TxLakshmi morales-C Unavailable [phone] Aidee Valero PA-C Unavailable [phone] Carlos Joyner MD Unavailable +[phone] Jadon Floyd MD Unavailable [phone] Encounter Details Date Type Department Care [...] Answer Date Recorded PHQ-2 Score 0 09/13/2024 [facility] of Occupat ional Health - [...] Care System Physical Medicine and Rehabilitation Clinic [address] [phone] Jadon Floyd MD [address] [place] [address] 03/23/2025 12:45 PM CDT Appointment [facility] [address] [facility] [address] [place] [address] [place] [address] [facility] [address] [place] [address] 03/23/2025 1:30 PM CDT Hospital Encounter [facility] [address] [place] [address] [place] [address] [facility] [address] [place] [address] 03/25/2025 10:20 AM CDT Virtual Visit [facility] Sports Medicine [facility] [place] [address] [place], [place] [address] [place] [address] [place] [phone] [place] [address] [address] [place] [address] 04/04/2025 12:00 PM INSTRUCTIONAL RESOURCE TEACHER Office Visit [facility] [place] [address] [place] [phone] DariusElvirginia Elder, NAMED ACCOUNT EXECUTIVE [facility] [address] [place], [place] 334834 05/30/2025 10:20 AM INSTRUCTIONAL RESOURCE TEACHER Appointment [facility] [address] [place] [phone] Carlos Joyner MD [address] [place] [address] 152275 05/31/2025 2:00 PM INSTRUCTIONAL RESOURCE TEACHER Virtual Visit [facility] Urology Clinic [place] 909 [facility] 4th [place] [address] Carlos Joyner MD [address] [place] [address] [phone] 07/25/2025 11:00 AM INSTRUCTIONAL RESOURCE TEACHER Office Visit [facility] [address] [place] [address] [place] [address] [place] [address] documented as of this encounter Visit Diagnoses Not on filedocumented in this encounter Care Teams Risk Lead Relationship Specialty Start Date End Date Helad[place] [address] [place] [address] PCP - General 03/05/23 Carlos Joyner MD [address] [place] [address] [phone] Urology 12/09/19 Jadon Murray MD [facility] 2530 [facility] 550 [place] [address] Referring Physician Pediatric Surgery 12/09/19 Maru Villagomez, RN Registered Nurse 12/10/19 Ang Slade MD [address] [place] [address] 394 [place] [address] Urology 04/24/20 Carlos Joyner MD [address] [place] [address] 569685 Assigned Surgical Provider 12/24/20 Ang Slade MD [address] [place] [address] 394 [place] [address] Urology 12/18/22 Lakshmi Wilhelm PA-C [address] [place] [address] 506855 Physician Scientific Affairs Manager Urology 02/03/23 [place] [address] [place] [address] Assigned PCP 02/06/23 Alissa Perez PA-C [address] [place] [address] 490775 Physician Scientific Affairs Manager Surgery 09/04/23 Lakshmi Wilhelm PA-C [address] [place] [address] 042175 Physician Scientific Affairs Manager Urology 09/16/23 Aidee Valero PA-C [address] [place] [address] 976835 Assigned Musculoskeletal Provider 04/17/24 02/14/25 Carlos Joyner MD [address] [place] [address] 238505 Urology 01/26/25 Jadon Floyd MD [address] [place] [address] 268175 Physician Physical Medicine and Rehabilitation 01/31/25 Tanisha Marlow 4120 [facility] [address] 03/30/24 documented as of this encounter
--- OUTSIDE RECORDS SUMMARY | 2025-03-01 02:57 | XMS_ITS | Encounter Summary ---
Author Organization [facility] Address [address] [place] [address] 31899 Care Team Providers Care Asset Protection Assistant Name Role Phone Carlos Joyner MD Unavailable [phone] Jadon Murray MD Unavailable [phone] Maru Villagomez RN Unavailable Unavailable Ang Slade MD Unavailable [phone] Carlos Joyner MD Unavailable +[phone] Ang Slade MD Unavailable [phone] Lakshmi Wilhelm-C Unavailable [phone] Heladio Willoughby MD Primary Care Provider [phone] Heladio Willoughby MD Unavailable Alissa Perez PA-C Unavailable [phone] Lakshmi Wilhelm-C Unavailable [phone] Aidee Valero PA-C Unavailable [phone] Carlos Joyner MD Unavailable [phone] Jadon Floyd MD Unavailable [phone] Cayden Bejarano MD Unavailable Encounter Details Date Type Department Care Team (Late st Contact Info) Description 09/27/[address] [address] Lisette Mariee Social History Tobacco [...] than three times a week 07/16/2024 Attends [employer] Not on file 07/16 Active Member of Clubs or Organizations Not on f ile 07/16/2024 Attends Club or Organization Meetings Not on antelmo e 07/16/2024 Marital Status Not on file 07/16/2024 PHQ-2 Answer Date Recorded PHQ-2 Score 0 09/13/2024 [facility] of Occupat ional Health - Occupational [...] 03/03/2025 9:00 AM CDT Office Visit [facility] Physical Medicine and Rehabilitation Clinic [address] [place] [address] Jadon Floyd MD [address] [place] [address] 03/23/2025 12:45 PM CDT Appointment [facility] [address] [facility] [address] [place] [phone] [place] [address] [place] [address] 03/23/2025 1:30 PM CDT Hospital Encounter [facility] [address] [place] [address]25[address] Cayden Bejarano [place] [address] [place] [address] 03/25/2025 10:20 AM CDT Virtual Visit [facility] Medicine [facility] [place] [address] [place], [place] [address] [place] [address] [place] [address] [address] [place] [address] 04/04/2025 12:00 PM WHOLESALE PARTS SALESPERSON Office Visit [facility] [place] [address] [place] [phone] Sugey Mccoy, PLANTING MACHINE CREWMAN [facility] [address] [place] [address] [address] [place] [address] 05/30/2025 10:20 AM WHOLESALE PARTS SALESPERSON Appointment [facility] [address] [facility] [address] [place] [phone] Carlos Joyner MD [address] [place] [address] 988415 05/31/2025 2:00 PM WHOLESALE PARTS SALESPERSON Virtual Visit [facility] Urology Clinic [place] 909 [facility] 4th [place] [address] Carlos Joyner MD [address] [place] [address] 600415 07/25/2025 11:00 AM WHOLESALE PARTS SALESPERSON Office [facility] [address] [place] [address] [place] [address] [place], [place] [phone] documented as of this encounter Visit Diagnoses Not on filedocumented in this encounter Care Teams Asset Protection Assistant Relationship Specialty Start [place] [address] [place] [address] PCP - General 03/05/23 Carlos Joyner MD [address] [place] [address]67 Urology 12/09/19 Jadon Murray MD [facility] [address] [facility] 550 [place] [address] Referring Physician Pediatric Surgery 12/09/19 Maru Villagomez, RN Registered Nurse 12/10/19 Ang Slade MD 420 [facility] 394 [place], [place] 252945 MD Urology 04/24/20 Carlos Joyner MD [address] [place] [address] [phone] Assigned Surgical Provider 12/24/20 Ang Slade MD 420 [facility] 394 [place], [place] 208915 MD Urology 12/18/22 Lakshmi Wilhelm PA-C [address] [place] [address] 111385 Physician University Lecturer Urology 02/03/23 [place] [address] [place] [address] Assigned PCP 02/06/23 Alissa Perez PA-C [address] [place] [address] 414455 Physician University Lecturer Surgery 09/04/23 Lakshmi Wilhelm PA-C [address] [place] [address] 579105 Physician University Lecturer Urology 09/16/23 Aidee Valero PA-C [address] [place] [address] 465[address] Assigned Musculoskeletal Provider 04/17/24 02/14/25 Carlos Joyner MD [address] [place] [address] Urology 01/26/25 Jadon Floyd MD [address] [place] [address] 6[address]89 Physician Physical Medicine and Rehabilitation 01/31/25 [place] [address] [place] [address] Assigned Musculoskeletal Provider 02/15/25 Tanisha Marlow 4120 [facility] [address] 03/30/24 documented as of this encounter
--- OUTSIDE RECORDS SUMMARY | 2025-03-01 02:57 | XMS_ITS | Encounter Summary ---
Author Organization [place] Address [address] [place] [address]12 Care Team Providers Care Dimension Warehouse Supervisor Name Role Phone Carlos Joyner MD Unavailable +[phone] Jadon Murray MD Unavailable +[phone] Maru Villagomez RN Unavailable Unavailable Ang Slade MD Unavailable +[phone] Carlos Joyner MD Unavailable +[phone] Ang Slade MD Unavailable [phone] Lakshmi Wilhelm-C Unavailable +[phone] Heladio Willoughby MD Primary Care Provider +[phone] Heladio Willoughby MD Unavailable Alissa Perez PA-C Unavailable [phone] Lakshmi Wilhelm-C Unavailable +[phone] Aidee Valero PA-C Unavailable +[phone] Carlos Joyner MD Unavailable +[phone] Jadon Floyd MD Unavailable +[phone] Cayden Bejarano MD Unavailable Encounter Details Date Type Department Care Team (Late st Contact Info) Description 02/03/2025 [facility] Urology [place] [id number] [facility] 4th [place] [address] Carlos Joyner MD [address] [place] [address] 32946 Social History Tobacco Use Types Packs/Day Years [...] Pratik Oneal - 02/03/2025 10:27 AM CDT [facility] Call Center Phone Message May a [...] Description 03/03/2025 9:00 AM CDT Office Visit [facility] Physical Medicine and Rehabilitation Clinic [address] 3rd [place] [address] Jadon Floyd MD [address] [place] [address] 03/23/2025 12:45 PM CDT Appointment [facility] [address] [facility] [address] [place] [address] [place] [address] [place] [address] 03/23/2025 1:30 PM CDT Hospital Encounter [facility] [address] [facility] [address] [place] [address] [place] [address] [place] [address] 03/25/2025 10:20 AM CDT Virtual Visit [facility] Sports Medicine [facility] [address] [place] [address] [address] [place] [address] [place] [address] [place] [address] 04/04/2025 12:00 PM PROJECT LEADER Office Visit [facility] Sleep [address] [phone] Sugey Mccoy, ROTOR PLATE WASHER [address] [address] 05/30/2025 10:20 AM PROJECT LEADER Appointment [facility] [address] [facility] [address] [place] [address] Carlos Joyner MD [address] [place] [address] 368445 05/31/2025 2:00 PM PROJECT LEADER Virtual Visit [facility] Urology Clinic [address] [phone] Carlos Joyner MD 909 [place], [place] [address] 07/25/2025 11:00 AM PROJECT LEADER Office Visit [facility] [address] [place] [address] [place] [address] [place], [place] 0130668 documented as of this encounter Visit Diagnoses Not on filedocumented in this encounter Care Teams Dimension Warehouse Supervisor Relationship Specialty Start [place] [address] [address] [place], [place] 9045468 PCP - General 03/05/23 Carlos Joyner MD [address] [place] [address]752 Urology 12/09/19 Jadon Murray MD [facility] [address] [address] Referring Physician Pediatric Surgery 12/09/19 Maru Villagomez RN Registered Nurse 12/10/19 Ang Slade MD 420 [facility] 394 [place] [address] Urology 04/24/20 Carlos Joyner MD [address] [place] [address] 84291 Assigned Surgical Provider 12/24/20 Ang Slade MD [address] [place] [address] 18[address] Urology 12/18/22 Lakshmi Wilhelm PA-C [address] [place] [address] 38773 Physician Certified Nutritionist Urology 02/03/23 [place] [address] [place] [address] Assigned PCP 02/06/23 Alissa Perez PA-C [address] [place] [address] Physician Certified Nutritionist Surgery 09/04/23 Lakshmi Wilhelm PA-C [address] [place] [address]40 Physician Certified Nutritionist Urology 09/16/23 Aidee Valero PA-C [address] [place] [address]14 Assigned Musculoskeletal Provider 04/17/24 02/14/25 Carlos Joyner MD [address] [place] [address]83 Urology 01/26/25 Jadon Floyd MD [address] [place] [address] 636785 Physician Physical Medicine and Rehabilitation 01/31/25 [place] [address] [place] [address] Assigned Musculoskeletal Provider 02/15/25 Tanisha Marlow 4120 [facility] [address] 03/30/24 documented as of this encounter
--- OUTSIDE RECORDS SUMMARY | 2025-03-01 02:57 | XMS_ITS | Encounter Summary ---
Author Organization [place] Address [address] [place] [address] Care Team Providers Care Director Drug Name Role Phone Carlos Joyner MD Unavailable +[phone] Jadon Murray MD Unavailable +[phone] Maru Villagomez RN Unavailable Unavailable Ang Slade MD Unavailable +[phone] Carlos Joyner MD Unavailable +[phone] Ang Slade MD Unavailable +[phone] Lakshmi WilhelmC Unavailable +[phone] Heladio Willoughby MD Primary Care Provider [phone] Heladio Willoughby MD Unavailable Alissa Perez-Juan A Unavailable [phone] Lakshmi Wilhelm PA-C Unavailable +[phone] Carlos Joyner MD Unavailable +[phone] Jadon Floyd MD Unavailable +[phone] Cayden [...] Description 03/03/2025 9:00 AM CDT Office Visit [facility] Physical Medicine and Rehabilitation Clinic [address] [phone] Jadon Floyd MD [address] [place] [address] 03/23/2025 12:45 PM CDT Appointment [facility] [address] [facility] [address] [place] [address] [place] [address] [place] [address] 03/23/2025 1:30 PM CDT Hospital Encounter [facility] Imaging [address] [place] [address] Cayden Bejarano [place] [address] [place] [address] 03/25/2025 10:20 AM CDT Virtual Visit [facility] Sports Medicine [facility] [place] [address] [place] [address] Cayden Bejarano [place] [address] [place] [address] 04/04/2025 12:00 PM RUSSIAN HISTORY PROFESSOR Office Visit [facility] Sleep Center [place] [address] [place] [address] Darius Elvir[place]ia Elder, STATION REPAIRER [facility] [address] [place], [place] [address] 05/30/2025 10:20 AM RUSSIAN HISTORY PROFESSOR Appointment [facility] [address] [place] [address] Carlos Joyner MD [address] [place] [address] 001185 05/31/2025 2:00 PM RUSSIAN HISTORY PROFESSOR Virtual Visit [facility] Urology Clinic [place] 909 [facility] 4th [place] [address] Carlos Joyner MD [address] [place] [address] 07/25/2025 11:00 AM RUSSIAN HISTORY PROFESSOR [facility] [address] [place] [address] [place] [address] [place] [address] documented as of this encounter Visit Diagnoses Not on filedocumented in this encounter Care Teams Director Drug Relationship Specialty [place] [address] [place] [address] PCP - General 03/05/23 Carlos Joyner MD [address] [place] [address] Urology 12/09/19 Jadon Murray MD [facility] 2530 [facility] 550 [place] [address] Referring Physician Pediatric Surgery 12/09/19 Maru Villagomez, RN Registered Nurse 12/10/19 Ang Slade MD [address] [place] [address] 394 [place], [place] 941835 Urology 04/24/20 Carlos Joyner MD [address] [place] [address] 579505 Assigned Surgical Provider 12/24/20 Ang Slade MD [address] [place] [address] 658115 Urology 12/18/22 Lakshmi Wilhelm PA-C [address] [place] [address] 144225 Physician Senior Hardware Design Engineer Urology 02/03/23 [place] [address] [place] [address] Assigned PCP 02/06/23 Alissa Perez PA-C [address] [place] [address] 790805 Physician Senior Hardware Design Engineer Surgery 09/04/23 Lakshmi Wilhelm PA-C [address] [place] [address] 143915 Physician Senior Hardware Design Engineer Urology 09/16/23 Carlos Joyner MD 909 [place], [place] 900735 Urology 01/26/25 Jadon Floyd MD 9 [place], [place] 972865 Physician Physical Medicine and Rehabilitation 01/31/25 [place] [address] [place] [address] Assigned Musculoskeletal Provider 02/15/25 Tanisha Marlow [address] [place] [address] 03/30/24 documented as of this encounter
--- OUTSIDE RECORDS SUMMARY | 2025-03-01 02:57 | XMS_ITS | Encounter Summary ---
Author Organization [place] Address [address] [place] [address]35 Care Team Providers Care Brush Operator Name Role Phone Carlos Joyner MD Unavailable +[phone] Jadon Murray MD Unavailable [phone] Maru Villagomez RN Unavailable Unavailable Ang Slade MD Unavailable +[phone] Carlos Joyner MD Unavailable +[phone] Ang Slade MD Unavailable [phone] Lakshmi Wilhelm-C Unavailable +[phone] Heladio Willoughby MD Primary Care Provider [phone] Heladio Willoughby MD Unavailable Alissa Perez PA-C Unavailable [phone] AzLakshmi morales-C Unavailable +[phone] Aidee Valero PA-C Unavailable [phone] Carlos Joyner MD Unavailable +[phone] Jadon Floyd MD Unavailable [phone] Encounter Details Date Type Department Care [...] Answer Date Recorded PHQ-2 Score 0 09/13/2024 [facility] ional [facility] - [...] Medical Center Physical Medicine and Rehabilitation Clinic [address] [phone] Jadon Floyd MD [address] [place] [address] 03/23/2025 12:45 PM CDT Appointment [facility] Imaging [address] [facility] [address] [place] [address] [place] [address] [facility] [address] [place] [address] 03/23/2025 1:30 PM CDT Hospital Encounter [facility] Imaging [address] [address] [place] [address] [place] [address] [facility] [address] [place] [address] 03/25/2025 10:20 AM CDT Virtual Visit [facility] Sports Medicine Clinic [place] [address] [place], [place] [address] [place] [address] [place] [address] [place] [address] [address] [place] [address] 04/04/2025 12:00 PM SERVICE CAR OPERATOR Office Visit [facility] Sleep Center [place] [address] [place] [address] DariusElvirginia Elder, UTILITIES GROUND WORKER [facility] [address] [place], [place] 8[address]404 05/30/2025 10:20 AM SERVICE CAR OPERATOR Appointment [facility] Imaging [address] [address] [place] [address] Carlos Joyner MD [address] [place] [address] 030925 05/31/2025 2:00 PM SERVICE CAR OPERATOR Virtual Visit [facility] Urology Clinic [place] 909 [facility] 4th [place] [address] Carlos Joyner MD [address] [place] [address] 45223455 07/25/2025 11:00 AM SERVICE CAR OPERATOR Office Visit [facility] [address] [place] [address] [place] [address] [place] [address] documented as of this encounter Visit Diagnoses Not on filedocumented in this encounter Care Teams Brush Operator Relationship Specialty Start Date End Date Heladio [place] [address] [place] [address] PCP - General 03/05/23 Carlos Joyner MD [address] [place] [address] [id number] Urology 12/09/19 Jadon Murray MD [facility] 2530 [facility] 550 [place] [address] Referring Physician Pediatric Surgery 12/09/19 Maru Villagomez, RN Registered Nurse 12/10/19 Ang Slade MD [address] [place] [address] 394 [place] [address] Urology 04/24/20 Carlos Joyner MD [address] [place] [address] 408255 Assigned Surgical Provider 12/24/20 Ang Slade MD [address] [place] [address] 394 [place] [address] Urology 12/18/22 Lakshmi Wilhelm PA-C [address] [place] [address] 448855 Physician Cooking Teacher Urology 02/03/23 [place] [address] [place] [address] Assigned PCP 02/06/23 Alissa Perez PA-C [address] [place] [address] 358155 Physician Cooking Teacher Surgery 09/04/23 Lakshmi Wilhelm PA-C [address] [place] [address] 325245 Physician Cooking Teacher Urology 09/16/23 Aidee Valero PA-C [address] [place] [address] 782205 Assigned Musculoskeletal Provider 04/17/24 02/14/25 Carlos Joyner MD [address] [place] [address] 833215 Urology 01/26/25 Jadon Floyd MD [address] [place] [address] 356595 Physician Physical Medicine and Rehabilitation 01/31/25 Tanisha Marlow 4120 [facility] [address] 03/30/24 documented as of this encounter
--- OUTSIDE RECORDS SUMMARY | 2025-03-01 02:57 | XMS_ITS | Encounter Summary ---
Author Organization [place] Address [address] [place] [address] Care Team Providers Care Oncology Physician Assistant Name Role Phone Carlos Joyner MD Unavailable +[phone] Jadon Murray MD Unavailable [phone] Maru Villagomez RN Unavailable Unavailable Ang Slade MD Unavailable +[phone] Carlos Joyner MD Unavailable +[phone] Ang Slade MD Unavailable +[phone] Lakshmi WilhelmC Unavailable +[phone] Heladio Willoughby MD Primary Care Provider [phone] Heladio Willoughby MD Unavailable Alissa Perez-Juan A Unavailable [phone] Lakshmi Wilhelm PA-C Unavailable +[phone] Carlos Joyner MD Unavailable +[phone] Jadon Floyd MD Unavailable +[phone] Cayden Bejarano MD Unavailable Encounter Details [...] Answer Date Recorded PHQ-2 Score 0 09/13/2024 [facility] [...] Description 03/03/2025 9:00 AM CDT Office Visit [facility] Physical Medicine and Rehabilitation Clinic [address] [phone] Jadon Floyd MD [address] [place] [address] 03/23/2025 12:45 PM CDT Appointment [facility] [address] [facility] [address] [place] [address] [place] [address] [place] [address] 03/23/2025 1:30 PM CDT Hospital Encounter [facility] [address] [place] [address]25[address] Cayden Bejarano [place] [address] [place] [address] 03/25/2025 10:20 AM CDT Virtual Visit [facility] Sports Medicine Clinic [place] [address] [place] [address] Cayden [place]jar[place] [address] [place] [address] 04/04/2025 12:00 PM BAND BUILDER Office Visit [facility] Sleep Center [place] [address] [place] [address] Darius Elvirginia Elder, DISK SANDER [facility] [address] [place], [place] 8[address] 05/30/2025 10:20 AM BAND BUILDER Appointment [facility] Imaging [address] [place] [address]26[address] Carlos Joyner MD [address] [place] [address] 317365 05/31/2025 2:00 PM BAND BUILDER Virtual Visit [facility] Urology Clinic [place] 909 [facility] 4th [place] [address] Carlos Joyner MD [address] [place] [address] 07/25/2025 11:00 AM BAND BUILDER Office Visit [facility] [address] [place] [address] [place] [address] [place] [address] documented as of this encounter Visit Diagnoses Not on filedocumented in this encounter Care Teams Oncology Physician Assistant Relationship Specialty [place] [address] [place] [address] PCP - General 03/05/23 Carlos Joyner MD [address] [place] [address] Urology 12/09/19 Jadon Murray MD [facility] 2530 [facility] 550 [place] [address] Referring Physician Pediatric Surgery 12/09/19 Maru Villagomez, RN Registered Nurse 12/10/19 Ang Slade MD [address] [place] [address] 394 [place], [place] 064215 Urology 04/24/20 Carlos Joyner MD [address] [place] [address] 858425 Assigned Surgical Provider 12/24/20 Ang Slade MD [address] [place] [address] 844035 Urology 12/18/22 Lakshmi Wilhelm PA-C [address] [place] [address] 352245 Physician Used Car Make Ready Mechanic Urology 02/03/23 [place] [address] [place] [address] Assigned PCP 02/06/23 Alissa Perez PA-C [address] [place] [address] 017755 Physician Used Car Make Ready Mechanic Surgery 09/04/23 Lakshmi Wilhelm PA-C [address] [place] [address] 883615 Physician Used Car Make Ready Mechanic Urology 09/16/23 Carlos Joyner MD 909 [place], [place] 854365 Urology 01/26/25 Jadon Floyd MD 9 [place], [place] 044695 Physician Physical Medicine and Rehabilitation 01/31/25 [place] [address] [place] [address] Assigned Musculoskeletal Provider 02/15/25 Tanisha Marlow 4120 [facility] [address] 03/30/24 documented as of this encounter
--- OUTSIDE RECORDS SUMMARY | 2025-03-01 02:58 | XMS_ITS | Encounter Summary ---
Author Organization [place] Address [address] [place] [address] Care Team Providers Care Motocross Racer Name Role Phone Carlos Joyner MD Unavailable +[phone] Jadon Murray MD Unavailable [phone] Maru Villagomez RN Unavailable Unavailable Ang Slade MD Unavailable +[phone] Carlos Joyner MD Unavailable +[phone] Ang Slade MD Unavailable [phone] Lakshmi WilhelmC Unavailable +[phone] Heladio Willoughby MD Primary Care Provider [phone] Heladio Willoughby MD Unavailable Alissa Perez-Juan A Unavailable [phone] Lakshmi Wilhelm PA-C Unavailable +[phone] Carlos Joyner MD Unavailable +[phone] Jadon Floyd MD Unavailable +[phone] Cayden Bejarano MD Unavailable Encounter Details Date Type Department Care Team (Late st Contact Info) Description 02/25/2025 Results Follow-Up [facility] Urology Clinic [address] 4th [place] [address] Rosita Velasco, RN Dx: Recurrent [...] Center Physical Medicine and Rehabilitation Clinic [address] [phone] Jadon Floyd MD [address] [place] [address] 747625 03/23/2025 12:45 PM CDT Appointment [facility] [address] [facility] [address] [place] [address] Cayden [place]jarano [place] [phone] [place], [place] [address] [place] [address] 03/23/2025 1:30 PM CDT Hospital Encounter [facility] Imaging [address] [place] [address] [place] [address] [facility] [place] [address] 03/25/2025 10:20 AM CDT Virtual Visit [facility] Sports Medicine Clinic [place] [address] [place] [address] [place] [address] [place] [address] 04/04/2025 12:00 PM CUTTER HEAD SHARPENER Office Visit [facility] Sleep Center [place] [address] [place] [address] Sugey Mccoy, LICENSED MARRIAGE AND FAMILY THERAPIST [facility] [address] [place] [address] 05/30/2025 10:20 AM CUTTER HEAD SHARPENER Appointment [facility] Center Imaging [address] [place] [address]25[address] Carlos Joyner MD [address] [place] [address] 761255 05/31/2025 2:00 PM CUTTER HEAD SHARPENER Virtual Visit [facility] Urology Clinic [place] [address] [place] [address] 4th [place] [address] Carlos Joyner MD [address] [place] [address] 319995 07/25/2025 11:00 AM CUTTER HEAD SHARPENER Office Visit [facility] [address] [place] [address] [place] [address] [place] [address] documented as of this encounter Visit Diagnoses Diagnosis Recurrent UTI- Primary Urinary tract infection, site not specified documented in this encounter Care Teams Motocross Racer Relationship Specialty [place] [address] [place] [address] PCP - General 03/05/23 Carlos Joyner MD [address] [place] [address] 26[address] Urology 12/09/19 Jadon Murray MD [facility] [address] [address] Referring Physician Pediatric Surgery 12/09/19 Maru Villagomez, OTILIO Registered Nurse 12/10/19 Ang Slade MD [address] [place] [address] Urology 04/24/20 Carlos Joyner MD [address] [place] [address] 900[address] Assigned Surgical Provider 12/24/20 Ang Slade MD [address] [place] [address] 14351 Urology 12/18/22 Lakshmi Wilhelm PA-C [address] [place] [address] 18063 Physician Art Gilder Urology 02/03/23 [place] [address] [facility] [place], [place] 2829968 Assigned PCP 02/06/23 Alissa Perez PA-C [address] [place] [address] 727215 Physician Art Gilder Surgery 09/04/23 Lakshmi Wilhelm PA-C [address] [place] [address] 635905 Physician Art Gilder Urology 09/16/23 Carlos Joyner MD [address] [place] [address] 686045 Urology 01/26/25 Jadon Floyd MD [address] [place] [address] 427985 Physician Physical Medicine and Rehabilitation 01/31/25 [place] [address] [place] [address] Assigned Musculoskeletal Provider 02/15/25 Tanisha Marlow [address] [place] [address] 03/30/24 documented as of this encounter
--- OUTSIDE RECORDS SUMMARY | 2025-03-01 02:58 | XMS_ITS | Encounter Summary ---
Author Organization [facility] Address [address] [place] [address] 21390 Care Team Providers Care Wire Brush Operator Name Role Phone Carlos Joyner MD Unavailable + [phone] Jadon Murray MD Unavailable +[phone] Maru Villagomez RN Unavailable Unavailable Ang Slade MD Unavailable +[phone] Carlos Joyner MD Unavailable + [phone] Ang Slade MD Unavailable +[phone] Lakshmi Wilhelm-C Unavailable +[phone] Heladio Willoughby MD Primary Care Provider [phone] Heladio Willoughby MD Unavailable Alissa Perez PA-C Unavailable [phone] Lakshmi Wilhelm PA-C Unavailable +[phone] Aidee Valero PA-C Unavailable +[phone] Carlos Joyner MD Unavailable + [phone] Jadon Floyd MD Unavailable +[phone] Cayden Bejarano MD Unavailable Encounter Details Date Type Department Care Team (Late st Contact Info) Description 12/17/[address] [address] [place] [address] [place] [address] Social History Tobacco Use Types Packs/Day Years [...] Answer Date Recorded PHQ-2 Score 0 09/13/2024 [facility] - Occupational [...] [facility] [address] [phone] Jadon Floyd MD [address] [place] [address] 979815 03/23/2025 12:45 PM CDT Appointment [facility] [address] [place] [address] [place] [address] [place] [address] 03/23/2025 1:30 PM CDT Hospital Encounter [facility] [address] [place] [address]-3065[address] [place] [address] [place] [address] 03/25/2025 10:20 AM CDT Virtual Visit [facility] [place] [address] [facility] [address] [place] [address] [place] [address] [place] [address] 04/04/2025 12:00 PM CHILD CARE ASSOCIATE Office Visit [facility] [address] [facility] [place] [address] Sugey Mccoy APRN [facility] [address] [place] [address] [address] [place] [address] 05/30/2025 10:20 AM CHILD CARE ASSOCIATE Appointment [facility] [address] [facility] [address] [place] [address] Carlos Joyner MD [address] [place] [address] 315255 05/31/2025 2:00 PM CHILD CARE ASSOCIATE Virtual Visit [facility] [address] 4th [place] [address] Carlos Joyner MD [address] [place] [address] 546835 07/25/2025 11:00 AM CHILD CARE ASSOCIATE Office Visit [place] [id number] [place] [address] [place] [address] [place] [address] documented as of this encounter Visit Diagnoses Not on filedocumented in this encounter Care Teams Wire Brush Operator Relationship Specialty Start [place] [address] [place] [address] PCP - General 03/05/23 Carlos Joyner MD [address] [place] [address] 31335 Urology 12/09/19 Jadon Murray MD [facility] [address] [facility] [address] [place], [place] [phone] Referring Physician Pediatric Surgery 12/09/19 Maru Villagomez, RN Registered Nurse 12/10/19 Ang Slade MD [address] [place] [address] 067595 Urology 04/24/20 Carlos Joyner MD [address] [place] [address] 687395 Assigned Surgical Provider 12/24/20 Ang Slade MD [address] [place] [address] 08305 Urology 12/18/22 Lakshmi Wilhelm PA-C [address] [place] [address] 275985 Physician Semiconductor Assembler Urology 02/03/23 [place] [address] [place] [address] Assigned PCP 02/06/23 Alissa Perez PA-C [address] [place] [address] 17408 Physician Semiconductor Assembler Surgery 09/04/23 Lakshmi Wilhelm PA-C [address] [place] [address] 07689 Physician Semiconductor Assembler Urology 09/16/23 Aidee Valero PA-C [address] [place] [address] 96112 Assigned Musculoskeletal Provider 04/17/24 02/14/25 Carlos Joyner MD [address] [place] [address] 50172 Urology 01/26/25 Jadon Floyd MD [address] [place] [address] 62479 Physician Physical Medicine and Rehabilitation 01/31/25 [place] [address] [place] [address] Assigned Musculoskeletal Provider 02/15/25 Tanisha Marlow 4120 [facility] [address] 03/30/24 documented as of this encounter
--- OUTSIDE RECORDS SUMMARY | 2025-03-01 02:58 | XMS_ITS | Encounter Summary ---
Author Organization [facility] Address [address] [place] [address] 81454 Care Team Providers Care Hi Teacher Name Role Phone Carlos Joyner MD Unavailable [phone] Jadon Murray MD Unavailable +[phone] Maru Villagomez RN Unavailable Unavailable Ang Slade MD Unavailable +[phone] Carlos Joyner MD Unavailable +[phone] Ang Slade MD Unavailable +[phone] Lakshmi Wilhelm-C Unavailable +[phone] Heladio Willoughby MD Primary Care Provider [phone] Heladio Willoughby MD Unavailable Alissa Perez PA-C Unavailable [phone] Lakshmi Wilhelm-C Unavailable +[phone] Aidee Valero PA-C Unavailable +[phone] Carlos Joyner MD Unavailable [phone] Reason for Visit * Reason Onset Date Comments Symptoms 12/06/2024 Encounter Details Date Type Department Care Team (Late st Contact Info) Description 12/06/2024 Telephone [facility] [address] 4th [place] [address] Carlos Joyner MD [address] [place] [address]30 Symptoms Social History Tobacco Use Types Packs/Day [...] than three times a week 07/16/2024 Attends Yarsanism Services Not on file 07/16 Active Member of Clubs or Organizations Not on f ile 07/16/2024 Attends Club or Organization Meetings Not on antelmo e 07/16/2024 Marital Status Not on file 07/16/2024 PHQ-2 Answer Date Recorded PHQ-2 Score 0 09/13/2024 [facility] [address]rd [place] [address] Jadon Floyd MD [address] [place] [address] 083405 03/23/2025 12:45 PM CDT Appointment [facility] [address] [facility] [address] [place] [address] [place] [address] [place] [address] 03/23/2025 1:30 PM CDT Hospital Encounter [facility] [address] [place] [address] [place] [address] [place] [address] 03/25/2025 10:20 AM CDT Virtual Visit [facility] Sports Medicine [facility] [address] [place] [address] Drive [address] [place] [address] [place] [address] [place] [address] 04/04/2025 12:00 PM BANK EXAMINER Office Visit [facility] Sleep [address] [phone] Sugey Mccoy, FAMILY RESOURCE MANAGEMENT PROFESSOR [address] [address] 05/30/2025 10:20 AM BANK EXAMINER Appointment [facility] [address] [facility] [address] [place] [address] Carlos Joyner MD [address] [place] [address] 785465 05/31/2025 2:00 PM BANK EXAMINER Virtual Visit [facility] Clinic [address] [phone] Carlos Joyner MD 909 [place], [place] 663485 07/25/2025 11:00 AM BANK EXAMINER Office [place] [facility] [address] [place] [address] [place] [address] [address] [address] [place], [place] 2146168 documented as of this encounter Visit Diagnoses Not on filedocumented in this encounter Care Teams Hi Teacher Relationship Specialty [place] [address] [address] [place], [place] 8769468 PCP - General 03/05/23 Carlos Joyner MD [address] [place] [address] 21502 Urology 12/09/19 Jadon Murray MD [facility] [address] [address] Referring Physician Pediatric Surgery 12/09/19 Maru Villagomez, OTILIO Registered Nurse 12/10/19 Agn Slade MD [address] [place] [address] 47369 Urology 04/24/20 Carlos Joyner MD [address] [place] [address] 94060 Assigned Surgical Provider 12/24/20 Ang Slade MD [address] [address] Urology 12/18/22 Lakshmi Wilhelm PA-C [address] [place] [address] 86782 Physician Breaker Off Urology 02/03/23 [place] [address] [place] [address] Assigned PCP 02/06/23 Alissa Perez PA-C [address] [place] [address] 69269 Physician Breaker Off Surgery 09/04/23 Lakshmi Wilhelm PA-C [address] [place] [address] 92881 Physician Breaker Off Urology 09/16/23 Aidee Valero PA-C [address] [place] [address] 05659 Assigned Musculoskeletal Provider 04/17/24 02/14/25 Carlos Joyner MD [address] [place] [address] 49387 Urology 01/26/25 Tanisha Marlow 4120 [facility] [address] 03/30/24 documented as of this encounter
--- OUTSIDE RECORDS SUMMARY | 2025-03-01 02:58 | XMS_ITS | Encounter Summary ---
Author Organization [facility] Address [address] [place] [address] Care Team Providers Care Furnace Maintenance Name Role Phone Carlos Joyner MD Unavailable [phone] Jadon Murray MD Unavailable [phone] Maru Villagomez RN Unavailable Unavailable Ang Slade MD Unavailable +[phone] Carlos Joyner MD Unavailable +[phone] Ang Slade MD Unavailable [phone] Lakshmi WilhelmC Unavailable [phone] Heladio Willoughby MD Primary Care Provider [phone] Heladio Willoughby MD Unavailable Alissa Perez-C Unavailable [phone] Lakshmi Wilhelm PA-C Unavailable +[phone] Aidee Valero-C Unavailable [phone] Encounter Details Date Type Department Care Team [...] Score 0 09/13/2024 [facility] - Occupational Stress Questionnaire Answer Date [...] [facility] [address] [phone] Jadon Floyd MD [address] [place] [address] 03/23/2025 12:45 PM CDT Appointment [facility] [address] [facility] [address] [place] [address] Cayden Bejarano MD [address] [place], [place] [address] [place] [address] 03/23/2025 1:30 PM CDT Hospital Encounter [facility] [address] [place] [address] Cayden Bejarano MD [address] [place], [place] [address]AIED [address] [place] [address] 03/25/2025 10:20 AM CDT Virtual Visit [facility] [place] [address] [place] [address] Cayden Bejarano MD [address] [place] [address] [address] [place] [address] 04/04/2025 12:00 PM ROTARY DERRICK OPERATOR Office Visit [facility] [place] [address] [place] [address] Sugey Mccoy, ANHYDROUS AMMONIA PRODUCTION SUPERVISOR [facility] [address] [place] [address] [address] [place] [address] 05/30/2025 10:20 AM ROTARY DERRICK OPERATOR Appointment [facility] [address] [facility] [address] [place] [address]25[address] Carlos Joyner MD [address] [place] [address] 795275 05/31/2025 2:00 PM ROTARY DERRICK OPERATOR Virtual Visit [facility] [place] 9[address] [facility] 4th [place] [address]-48[address] Carlos Joyner MD [address] [place] [address] 102405 07/25/2025 11:00 AM ROTARY DERRICK OPERATOR Office Visit [facility] [address] [place] [address] [place] [address] [place], [place] [phone] documented as of this encounter Visit Diagnoses Not on filedocumented in this encounter Care Teams Furnace Maintenance Relationship Specialty Start [place] [address] [place] [address] PCP - General 03/05/23 Carlos Joyner MD [address] [place] [address]266 Urology 12/09/19 Jadon Murray MD [facility] [address] [facility] 550 [place] [address] Referring Physician Pediatric Surgery 12/09/19 Maru Villagomez, RN Registered Nurse 12/10/19 Ang Slade MD 420 [facility] 394 [place], [place] 116115 Urology 04/24/20 Carlos Joyner MD [address] [place] [address] Assigned Surgical Provider 12/24/20 Ang Slade MD 420 [facility] 394 [place], [place] 799395 MD Urology 12/18/22 Lakshmi Wilhelm PA-C [address] [place] [address] 658495 Physician Rod Greaser Urology 02/03/23 [place] [address] [place] [address] Assigned PCP 02/06/23 Alissa Perez PA-C [address] [place] [address] 598635 Physician Rod Greaser Surgery 09/04/23 Lakshmi Wilhelm PA-C [address] [place] [address] 320975 Physician Rod Greaser Urology 09/16/23 Aidee Valero PA-C [address] [place] [address] [place] [address] Assigned Musculoskeletal Provider 04/17/24 02/14/25 Tanisha Marlow 4120 [facility] [place] [address] 03/30/24 documented as of this encounter
--- OUTSIDE RECORDS SUMMARY | 2025-03-01 02:58 | XMS_ITS | Encounter Summary ---
Author Organization [place] Address [address] [place] [address] 86359 Care Team Providers Care Rigging Engineer Name Role Phone Carlos Joyner MD Unavailable [phone] Jadon Murray MD Unavailable +[phone] Maru Villagomez RN Unavailable Unavailable Ang Slade MD Unavailable +[phone] Carlos Joyner MD Unavailable +[phone] Ang Slade MD Unavailable +[phone] Lakshmi Wilhelm PA-C Unavailable +[phone] Heladio Willoughby MD Primary Care Provider [phone] Heladio Willoughby MD Unavailable Alissa Perez PA-C Unavailable [phone] Lakshmi Wilhelm PA-C Unavailable +[phone] Aidee Valero PA-C Unavailable +[phone] Carlos Joyner MD Unavailable +[phone] Jadon Floyd MD Unavailable [phone] Cayden Bejarano MD Unavailable Reason for Visit * Reason Onset Date Comments Referral 01/25/2025 Encounter Details Date Type Department Care Team (Late st Contact Info) Description 01/25/2025 Telephone [facility] Medicine [facility] Rehabilitation [facility] [place] [id number] [address] Unknown Referral Social History Tobacco [...] Leon Serna - 01/25/2025 9:45 AM CDT [facility] Call [facility] Phone Message May a detailed message be left on voicemail: yes Reason for Call: Appointment Intake Referring Provider Name: Heladio Willoughby MD Diagnosis and/or Symptoms: Pressure injury of left lower back, stage 2 (H) History of pressure injury of skin Paraplegia (H) Action Taken: Other: Routed to [facility] Physical Medicine and Rehabilitation Adult [facility] Travel Screening: Not Applicable Please review and contact patient for scheduling, reasons for referral are not on scheduling guidelines documented in this encounter Plan of Treatment Upcoming Encounters Date Type Department Care Team (Late st Contact Info) Description 03/03/2025 9:00 AM CDT Office Visit [facility] Medicine [facility] Rehabilitation Clinic [address] [place] [address] Jadon Floyd MD [address] [place] [address] 03/23/2025 12:45 PM CDT Appointment [facility] [address] [place] [address] [place] [address] [place] [address] 03/23/2025 1:30 PM CDT Hospital Encounter [facility] [address] [place] [address] [place] [address] [place] [address] 03/25/2025 10:20 AM CDT Virtual Visit [facility] Sports Medicine [facility] [address] [place] [address] Drive [address] [place] [address] [place] [address] [place] [address] 04/04/2025 12:00 PM STAKES PLAYER Office Visit [facility] Sleep [address] [phone] Sugey Mccoy, NITROGLYCERIN DISTRIBUTOR [address] 765124 05/30/2025 10:20 AM STAKES PLAYER Appointment [facility] [address] [facility] [address] [place] [address] Carlos Joyner MD [address] [place] [address] 11255455 05/31/2025 2:00 PM STAKES PLAYER Virtual Visit [facility] Urology Clinic [address]th [place] [address] Carlos Joyner MD 909 [place] [address] 07/25/2025 11:00 AM STAKES PLAYER Office Visit [facility] [address] [place] [address] [place] [address] [address] [place], [place] 8462568 documented as of this encounter Visit Diagnoses Not on filedocumented in this encounter Care Teams Rigging Engineer Relationship Specialty [place] [address] [address] [place], [place] 7466468 PCP - General 03/05/23 Carlos Joyner MD [address] [place] [address] 215405 Urology 12/09/19 Jadon Murray MD [facility] [address] [address] Referring Physician Pediatric Surgery 12/09/19 Maru Villagomez RN Registered Nurse 12/10/19 Ang Slade MD [address] [place] [address] 12000 Urology 04/24/20 Carlos Joyner MD [address] [place] [address] 40746 Assigned Surgical Provider 12/24/20 Ang Slade MD [address] [place] [address] 394 [place], [place] 299415 Urology 12/18/22 Lakshmi Wilhelm PA-C [address] [place] [address] 436665 Physician Wedger Urology 02/03/23 [place] [address] [place], [place] 3538668 Assigned PCP 02/06/23 Alissa Perez PA-C [address] [place] [address] 282865 Physician Wedger Surgery 09/04/23 Lakshmi Wilhelm PA-C [address] [place] [address] 266905 Physician Wedger Urology 09/16/23 Aidee Valero PA-C [address] [place] [address] 027745 Assigned Musculoskeletal Provider 04/17/24 02/14/25 Carlos Joyner MD [address] [place] [address] 535695 Urology 01/26/25 Jadon Floyd MD [address] [place] [address] 599215 Physician Physical Medicine and Rehabilitation 01/31/25 [place] [address] [place] [address] Assigned Musculoskeletal Provider 02/15/25 Tanisha Marlow 4120 [facility] [address] 03/30/24 documented as of this encounter
--- OUTSIDE RECORDS SUMMARY | 2025-03-01 02:58 | XMS_ITS | Encounter Summary ---
Author Organization [place] Address [address] [place] [address] 8[address]40 Care Team Providers Care Health Education Director Name Role Phone Carlos Joyner MD Unavailable [phone] Jadon Murray MD Unavailable [phone] Maru Villagomez RN Unavailable Unavailable Ang Slade MD Unavailable +[phone] Carlos Joyner MD Unavailable +[phone] Ang Slade MD Unavailable [phone] Lakshmi Wilhelm-C Unavailable [phone] Heladio Willoughby MD Primary Care Provider [phone] Heladio Willoughby MD Unavailable Alissa Perez PA-C Unavailable [phone] Lakshmi Wilhelm-C Unavailable +[phone] Aidee Valero PA-C Unavailable +[phone] Carlos Joyner MD Unavailable +[phone] Jadon Floyd MD Unavailable [phone] Cayden Bejarano MD Unavailable Encounter Details Date Type Department Care Team (Late st Contact Info) Description 12/06/2024 [facility]rology [place] [address] [facility] 4th [place] [address] Rosita Velasco RN Social History [...] Description 03/03/2025 9:00 AM CDT Office Visit [facility] Physical Medicine and Rehabilitation Clinic [address] [phone] Jadon Floyd MD [address] [place] [address] 733175 03/23/2025 12:45 PM CDT Appointment [facility] [address] [facility] [address] [place] [address] [place] [address] [facility] [address] [place] [address] 03/23/2025 1:30 PM CDT Hospital Encounter [facility] [address] [place] [address] [place] [address] [facility] [address] [place] [address] 03/25/2025 10:20 AM CDT Virtual Visit [facility] [place] [address] [place] [address] [place] [address] [place] [address] 04/04/2025 12:00 PM RESORT HOST Office Visit [facility] [place] [address] [place] [address] Sugey Mccoy, ANIMAL HUSBANDRY MANAGER [facility] [address] [place], [place] [address]E [address] [place], [place] 704854 05/30/2025 10:20 AM RESORT HOST Appointment [facility] [address] [place] [address] Carlos Joyner MD [address] [place] [address] 276575 05/31/2025 2:00 PM RESORT HOST Virtual Visit [facility] [place] [address] [place] [address] 4th [place] [address] Carlos Joyner MD [address] [place] [address] 274075 07/25/2025 11:00 AM RESORT HOST Office Visit [facility] [address] [place] [address] [place] [address] [facility] [place] [address] documented as of this encounter Visit Diagnoses Not on filedocumented in this encounter Care Teams Health Education Director Relationship Specialty [place] [address] [facility] [place] [address] PCP - General 03/05/23 Carlos Joyner MD [address] [place] [address] 166335 Urology 12/09/19 Jadon Murray MD [facility] [address] [address] Referring Physician Pediatric Surgery 12/09/19 Maru Villagomez, RN Registered Nurse 12/10/19 Ang Slade MD [address] [place] [address] 8[address]03 Urology 04/24/20 Carlos Joyner MD [address] [place] [address] 69436 Assigned Surgical Provider 12/24/20 Ang Slade MD [address] [place] [address] 37388 Urology 12/18/22 Lakshmi Wilhelm PA-C [address] [place] [address] 64917 Physician Bundle Collector Urology 02/03/23 [place] [address] [facility] [place], [place] 9030768 Assigned PCP 02/06/23 Alissa Perez PA-C [address] [place] [address] 893655 Physician Bundle Collector Surgery 09/04/23 Lakshmi Wilhelm PA-C [address] [place] [address] 774755 Physician Bundle Collector Urology 09/16/23 Aidee Valero PA-C [address] [place] [address] 54[address] Assigned Musculoskeletal Provider 04/17/24 02/14/25 Carlos Joyner MD [address] [place] [address] 826105 Urology 01/26/25 Jadon Floyd MD [address] [place] [address] 724915 Physician Physical Medicine and Rehabilitation 01/31/25 [place] [address] [place] [address] Assigned Musculoskeletal Provider 02/15/25 Tanisha Marlow 4120 [facility] [address] 03/30/24 documented as of this encounter
--- OUTSIDE RECORDS SUMMARY | 2025-03-01 02:58 | XMS_ITS | Encounter Summary ---
Author Organization [facility] Address [address] [place] [address] Care Team Providers Care Grout Machine Operator Name Role Phone Carlos Joyner MD Unavailable +[phone] Jadon Murray MD Unavailable +[phone] Maru Villagomez RN Unavailable Unavailable Ang Slade MD Unavailable +[phone] Carlos Joyner MD Unavailable +[phone] Ang Slade MD Unavailable +[phone] Lakshmi WilhelmC Unavailable +[phone] Heladio Willoughby MD Primary Care Provider [phone] Heladio Willoughby MD Unavailable Alissa Perez-C Unavailable [phone] Lakshmi Wilhelm PA-C Unavailable +[phone] Aidee Valero-C Unavailable +[phone] Encounter Details Date Type Department Care Team [...] PHQ-2 Score 0 09/13/2024 [facility] - Occupational Stress Questionnaire Answer [...] [facility] [address] [phone] Jadon Floyd MD [address] [place] [address] 03/23/2025 12:45 PM CDT Appointment [facility] [address] [facility] [address] [place] [address] Cayden Bejarano MD [address] [place], [place] [address] [place] [address] 03/23/2025 1:30 PM CDT Hospital Encounter [facility] [address] [place] [address] Cayden Bejarano MD [address] [place], [place] [address] [place] [address] 03/25/2025 10:20 AM CDT Virtual Visit [facility] [place] [address] [place] [address] Cayden Bejarano MD [address] [place] [address] [address] [place] [address] 04/04/2025 12:00 PM PICCOLOIST Office Visit [facility] [place] [address] [place] [phone] Sugey Mccoy, MOBILE DEVELOPMENT MANAGER [facility] [address] [place] [address] [address] [place] [address] 05/30/2025 10:20 AM PICCOLOIST Appointment [facility] [address] [facility] [address] [place] [address] Carlos Joyner MD [address] [place] [address] 292485 05/31/2025 2:00 PM PICCOLOIST Virtual Visit [facility] [place] 9[address] [facility] 4th [place] [address] Carlos Joyner MD [address] [place] [address] 776095 07/25/2025 11:00 AM PICCOLOIST Office Visit [facility] [address] [place] [address] [place] [address] [place], [place] [phone] documented as of this encounter Visit Diagnoses Not on filedocumented in this encounter Care Teams Grout Machine Operator Relationship Specialty Start [place] [address] [place] [address] PCP - General 03/05/23 Carlos Joyner MD [address] [place] [address]10 Urology 12/09/19 Jadon Murray MD [facility] 2530 [facility] 550 [place] [address] Referring Physician Pediatric Surgery 12/09/19 Maru Villagomez, RN Registered Nurse 12/10/19 Ang Slade MD 420 [facility] 394 [place], [place] 882125 Urology 04/24/20 Carlos Joyner MD [address] [place] [address]455 Assigned Surgical Provider 12/24/20 Ang Slade MD 420 [facility] 394 [place], [place] 118205 MD Urology 12/18/22 Lakshmi Wilhelm PA-C [address] [place] [address] 074055 Physician Insurance Plan Specialist Urology 02/03/23 [place] [address] [place] [address] Assigned PCP 02/06/23 Alissa Perez PA-C [address] [place] [address] [id number] Physician Insurance Plan Specialist Surgery 09/04/23 Lakshmi Wilhelm PA-C [address] [place] [address] [id number] Physician Insurance Plan Specialist Urology 09/16/23 Aidee Valero PA-C [address] [place] [address] [place] [address] Assigned Musculoskeletal Provider 04/17/24 02/14/25 Tanisha Marlow 4120 [facility] [address] 03/30/24 documented as of this encounter
--- OUTSIDE RECORDS SUMMARY | 2025-03-01 02:58 | XMS_ITS | Encounter Summary ---
Author Organization [place] Address [address] [place] [address] Care Team Providers Care Land Title Examiner Name Role Phone Carlos Joyner MD Unavailable + [phone] Jadon Murray MD Unavailable +[phone] Maru Villagomez RN Unavailable Unavailable Ang Slade MD Unavailable +[phone] Carlos Joyner MD Unavailable + [phone] Ang Slade MD Unavailable +- [phone] Lakshmi Wilhelm-C Unavailable +[phone] Healdio Willoughby MD Primary Care Provider +[phone] Heladio Willoughby MD Unavailable Alissa Perez PA-C Unavailable [phone] Lakshmi Wilhelm-C Unavailable +- [phone] Aidee Valero PA-C Unavailable +[phone] Carlos Joyner MD Unavailable + [phone] Jadon Floyd MD Unavailable +[phone] Cayden Bejarano MD Unavailable Encounter Details Date Type Department Care Team (Late st Contact Info) Description 06/15/[address] [address] Sarika Calhoun MA Social History [...] Description 03/03/2025 9:00 AM CDT Office Visit [facility] Physical Medicine [facility] Rehabilitation Clinic [address] [address] Jadon Floyd MD [address] [place] [address] 254785 03/23/2025 12:45 PM CDT Appointment [facility] [address] [place] [address] [place] [address] [place] [address] 03/23/2025 1:30 PM CDT Hospital Encounter [facility] [address] [facility] [address] [place] [address] Cayden [place]jar[place] [address] [place] [address] [address] [place] [address] 03/25/2025 10:20 AM CDT Virtual Visit [facility] Sports Medicine [facility] [address] [place] [address] [address] [place] [address] [place] [address] [place] [address] 04/04/2025 12:00 PM PATIENT INFORMATION COORDINATOR Office Visit [facility] Sleep [address] [phone] Sugey Mccoy, NESTOR [address] [address] 05/30/2025 10:20 AM PATIENT INFORMATION COORDINATOR Appointment [facility] [address] [facility] [address] [place] [address] Carlos Joyner MD [address] [place] [address] 95167455 05/31/2025 2:00 PM PATIENT INFORMATION COORDINATOR Virtual Visit [facility] Urology Clinic [address] 4th [place] [address] Carlos Joyner MD [address] [place] [address] [phone] 07/25/2025 11:00 AM PATIENT INFORMATION COORDINATOR Office Visit [facility] [address] [place] [phone] [place] [address] [address] [place] [id number] documented as of this encounter Visit Diagnoses Not on filedocumented in this encounter Care Teams Land Title Examiner Relationship Specialty Start [place] [address] [address] [place] [id number] PCP - General 03/05/23 Carlos Joyner MD [address] [place] [address] Urology 12/09/19 Jadon Murray MD [facility] 2530 [facility] 550 [place] [address] Referring Physician Pediatric Surgery 12/09/19 Maru Villagomez, RN Registered Nurse 12/10/19 Ang Slade MD [address] [place] [address] Urology 04/24/20 Carlos Joyner MD [address] [place] [address] 595695 Assigned Surgical Provider 12/24/20 Ang Slade MD [address] [address] Urology 12/18/22 Lakshmi Wilhelm PA-C [address] [place] [address] Physician Show Operations Supervisor Urology 02/03/23 [place] [address] [place] [address] Assigned PCP 02/06/23 Alissa Perez PA-C [address] [place] [address]201 Physician Show Operations Supervisor Surgery 09/04/23 Lakshmi Wilhelm PA-C [address] [place] [address] Physician Show Operations Supervisor Urology 09/16/23 Aidee Valero PA-C [address] [place] [address] 832465 Assigned Musculoskeletal Provider 04/17/24 02/14/25 Carlos Joyner MD [address] [place] [address] 273425 Urology 01/26/25 Jadon Floyd MD [address] [place] [address] 986035 Physician Physical Medicine and Rehabilitation 01/31/25 [place] [address] [place] [address] Assigned Musculoskeletal Provider 02/15/25 Tanisha Marlow 4120 [facility] [id number] 03/30/24 documented as of this encounter
--- OUTSIDE RECORDS SUMMARY | 2025-03-01 02:58 | XMS_ITS | Encounter Summary ---
Author Organization [place] Address [address] [place] [address] Care Team Providers Care Virginia Line Attendant Name Role Phone Carlos Joyner MD Unavailable + [phone] Jadon Murray MD Unavailable +[phone] Maru Villagomez RN Unavailable Unavailable Ang Slade MD Unavailable +[phone] Carlos Joyner MD Unavailable +[phone] Ang Slade MD Unavailable +[phone] Lakshmi Wilhelm-C Unavailable +[phone] Heladio Willoughby MD Primary Care Provider [phone] Heladio Willoughby MD Unavailable Alissa Perez PA-C Unavailable [phone] Lakshmi Wilhelm-C Unavailable +[phone] Aidee Valero PA-C Unavailable +[phone] Carlos Joyner MD Unavailable + [phone] Jadon Floyd MD Unavailable +[phone] Cayden Bejarano MD Unavailable Encounter Details Date Type Department Care Team (Late st Contact Info) Description 04/01/2024 [facility] Orthopedic [place] 8[address] [facility] 4th [place] [address] Aidee Valero PA-C [address] [place] [address] Social History Tobacco Use Types Packs/Day Years [...] [facility] [address] 3rd [place] [address] Jadon Floyd MD [address] [place] [address] 03/23/2025 12:45 PM CDT Appointment [facility] [address] [facility] [address] [place] [address] [place]den [place] [address] [place] [address] [address] [place] [address] 03/23/2025 1:30 PM CDT Hospital Encounter [facility] [address] [facility] [address] [place] [address] [place] [address] [place] [address] 03/25/2025 10:20 AM CDT Virtual Visit [facility] Sports Medicine [facility] [address] [place] [address] [address] [place] [address] [place] [address] [place] [address] 04/04/2025 12:00 PM MULTIPLE KNIFE EDGE TRIMMER OPERATOR Office Visit [facility] Sleep [facility] [address] [place] [phone] Sugey Mccoy, VOLUNTEER COORDINATOR [address] [address] 05/30/2025 10:20 AM MULTIPLE KNIFE EDGE TRIMMER OPERATOR Appointment [facility] [address] [facility] [address] [place] [address] Carlos Joyner MD [address] [place] [address] 05/31/2025 2:00 PM MULTIPLE KNIFE EDGE TRIMMER OPERATOR Virtual Visit [facility] Urology Clinic [address] 4th [place] [address] Carlos Joyner MD 909 [place] [address] 07/25/2025 11:00 AM MULTIPLE KNIFE EDGE TRIMMER OPERATOR Office Visit [facility] [address] [place] [address] [place] [address] [facility] [place], [place] [phone] documented as of this encounter Visit Diagnoses Not on filedocumented in this encounter Care Teams Virginia Line Attendant Relationship Specialty [place] [address] [address] [place], [place] [phone] PCP - General 03/05/23 Carlos Joyner MD [address] [place] [address] Urology 12/09/19 Jadon Murray MD [facility] [address] [address] Referring Physician Pediatric Surgery 12/09/19 Maru Villagomez, OTILIO Registered Nurse 12/10/19 Ang Slade MD [address] [place] [address] Urology 04/24/20 Carlos Joyner MD [address] [place] [address] 64[address] Assigned Surgical Provider 12/24/20 Ang Slade MD [address] [place] [address] 35[address] Urology 12/18/22 Lakshmi Wilhelm PA-C [address] [place] [address] 51440 Physician Retail Sales Associate Bilingual Urology 02/03/23 [place] [address] [place] [address] Assigned PCP 02/06/23 Alissa Perez PA-C [address] [place] [address] Physician Retail Sales Associate Bilingual Surgery 09/04/23 Lakshmi Wilhelm PA-C [address] [place] [address] 90891 Physician Retail Sales Associate Bilingual Urology 09/16/23 Aidee Valero PA-C [address] [place] [address] 29013 Assigned Musculoskeletal Provider 04/17/24 02/14/25 Carlos Joyner MD [address] [place] [address] Urology 01/26/25 Jadon Floyd MD [address] [place] [address] 953225 Physician Physical Medicine and Rehabilitation 01/31/25 [place] [address] [place] [address] Assigned Musculoskeletal Provider 02/15/25 Tanisha Marlow 4120 [facility] [address] 03/30/24 documented as of this encounter
--- OUTSIDE RECORDS SUMMARY | 2025-03-01 02:58 | XMS_ITS | Encounter Summary ---
Author Organization [facility] Address [address] [place] [address] Care Team Providers Care Mink Farmer Name Role Phone Carlos Joyner MD Unavailable +[phone] Jadon Murray MD Unavailable +[phone] Maru Villagomez RN Unavailable Unavailable Ang Slade MD Unavailable +[phone] Carlos Joyner MD Unavailable +[phone] Ang Slade MD Unavailable +[phone] Lakshmi Wilhelm-C Unavailable +[phone] Heladio Willoughby MD Primary Care Provider +[phone] Heladio Willoughby MD Unavailable Alissa Perez PA-C Unavailable [phone] Lakshmi Wilhelm-C Unavailable +[phone] Aidee Valero PA-C Unavailable [phone] Reason for Visit * Reason Onset Date Comments Pre Visit Planning - Done 01/25/2025 Encounter Details Date Type Department Care Team (Late st Contact Info) Description 01/25/2025 PRE VISIT [facility] Urology Clinic [address] 4th [place] [address] Rosita Velasco RN Pre Visit [...] Answer Date Recorded PHQ-2 Score 0 09/13/2024 [facility] [place] [facility] - Occupational Stress [...] Description 03/03/2025 9:00 AM CDT Office Visit [facility] Physical Medicine and Rehabilitation Clinic [address] [phone] Jadon Floyd MD [address] [place] [address] 434865 03/23/2025 12:45 PM CDT Appointment [facility] [address] [facility] [address] [place] [address] [place] [address] [place] [address] 03/23/2025 1:30 PM CDT Hospital Encounter [facility] [address] [facility] [address] [place] [address] [place]den [place] [address] [place] [address] [address] [place] [address] 03/25/2025 10:20 AM CDT Virtual Visit [facility] [place] [address] [place] [address] [place] [address] [place] [address] 04/04/2025 12:00 PM FAT PURIFICATION WORKER Office Visit [facility] Sleep [address] [phone] Sugey Mccoy, INSIDE WIRER [address] 139844 05/30/2025 10:20 AM FAT PURIFICATION WORKER Appointment [facility] [address] [facility] [address] [place] [address] Carlos Joyner MD [address] [place] [address] 05/31/2025 2:00 PM FAT PURIFICATION WORKER Virtual Visit [facility] Urology [address] 4th [place] [address] Carlos Joyner MD [address] [place] [address] 07/25/2025 11:00 AM FAT PURIFICATION WORKER Office Visit [address] [phone] [place] [address] [address] [place] [phone] documented as of this encounter Visit Diagnoses Not on filedocumented in this encounter Care Teams Mink Farmer Relationship Specialty [place] [address] [address] [place] [phone] PCP - General 03/05/23 Carlos Joyner MD [address] [place] [address] 867655 Urology 12/09/19 Jadon Murray MD [facility] [address] [address] Referring Physician Pediatric Surgery 12/09/19 Maru Villagomez, RN Registered Nurse 12/10/19 Ang Slade MD [address] [place] [address] Urology 04/24/20 Carlos Joyner MD [address] [place] [address] Assigned Surgical Provider 12/24/20 Ang Slade MD [address] [place] [address]683 Urology 12/18/22 Lakshmi Wilhelm PA-C [address] [place] [address]12 Physician Branch Services Manager Urology 02/03/23 [place] [address] [place] [address] Assigned PCP 02/06/23 Alissa Perez PA-C [address] [place] [address] 948915 Physician Branch Services Manager Surgery 09/04/23 Lakshmi Wilhelm PA-C [address] [place] [address] 504355 Physician Branch Services Manager Urology 09/16/23 Aidee Valero PA-C [address] [place] [address] 610345 Assigned Musculoskeletal Provider 04/17/24 02/14/25 Tanisha Marlow 4120 [facility] [address] 03/30/24 documented as of this encounter
--- OUTSIDE RECORDS SUMMARY | 2025-03-01 02:58 | XMS_ITS | Encounter Summary ---
Author Organization [facility] Address [address] [place] [address] Care Team Providers Care Felting Machine Operator Name Role Phone Carlos Joyner MD Unavailable + [phone] Jadon Murray MD Unavailable +[phone] Maru Villagomez RN Unavailable Unavailable Ang Slade MD Unavailable +[phone] Carlos Joyner MD Unavailable + [phone] Ang Slade MD Unavailable +[phone] Lakshmi Wilhelm-C Unavailable +[phone] Heladio Willoughby MD Primary Care Provider +[phone] Heladio Willoughby MD Unavailable Alissa Perez PA-C Unavailable [phone] Lakshmi Wilhelm-C Unavailable +[phone] Aidee Valero PA-C Unavailable +[phone] Carlos Joyner MD Unavailable + [phone] Jadon Floyd MD Unavailable +[phone] Cayden Bejarano MD Unavailable Encounter Details Date Type Department Care Team (Late st Contact Info) Description 08/20/[address] [address] Mercy Feliz, RN Social History [...] [facility] [address]rd [place] [address] Jadon Floyd MD [address] [place] [address] 03/23/2025 12:45 PM CDT Appointment [facility] [address] [facility] [address] [place] [address] [place] [address] [place] [address] 03/23/2025 1:30 PM CDT Hospital Encounter [facility] [address] [place] [address] Cayden Bejarano [place] [address] [place] [address] 03/25/2025 10:20 AM CDT Virtual Visit [facility] [place] [address] [place], [place] [address] [place] [address] [place] [address] [address] [place] [address] 04/04/2025 12:00 PM MANAGEMENT PLANNER Office Visit M [facility] [place] [address] [place] [address] Sugey Mccoy, EMBRYOLOGY TEACHER [facility] [address] [place] [address] [address] [place] [address] 05/30/2025 10:20 AM MANAGEMENT PLANNER Appointment M [facility] [address] [facility] [address] [place] [address] Carlos Joyner MD [address] [place] [address] 313315 05/31/2025 2:00 PM MANAGEMENT PLANNER Virtual Visit [facility] [place] 909 [facility] 4th [place] [address] Carlos Joyner MD [address] [place] [address] 766855 07/25/2025 11:00 AM MANAGEMENT PLANNER Office Visit [facility] [address] [place] [address] [place] [address] [place], [place] [phone] documented as of this encounter Visit Diagnoses Not on filedocumented in this encounter Care Teams Felting Machine Operator Relationship Specialty Start [place] [address] [place] [address] PCP - General 03/05/23 Carlos Joyner MD [address] [place] [address] Urology 12/09/19 Jadon Murray MD [facility] 2530 [facility] 550 [place] [address] Referring Physician Pediatric Surgery 12/09/19 Maru Villagomez, RN Registered Nurse 12/10/19 Ang Slade MD 420 [facility] 394 [place], [place] 443035 MD Urology 04/24/20 Carlos Joyner MD [address] [place] [address] 33414455 Assigned Surgical Provider 12/24/20 Ang Slade MD 420 [facility] 394 [place], [place] 587585 MD Urology 12/18/22 Lakshmi Wilhelm PA-C [address] [place] [address] 941355 Physician Armature Connector Urology 02/03/23 [place] [address] [place] [address] Assigned PCP 02/06/23 Alissa Perez PA-C [address] [place] [address] 613485 Physician Armature Connector Surgery 09/04/23 Lakshmi Wilhelm PA-C [address] [place] [address] 913105 Physician Armature Connector Urology 09/16/23 Aidee Valero PA-C [address] [place] [address] 79042 Assigned Musculoskeletal Provider 04/17/24 02/14/25 Carlos Joyner MD [address] [place] [address] 58326 Urology 01/26/25 Jadon Floyd MD [address] [place] [address] 13834 Physician Physical Medicine and Rehabilitation 01/31/25 [place] [address] [place] [address] Assigned Musculoskeletal Provider 02/15/25 Tanisha Marlow 4120 [facility] [address] 03/30/24 documented as of this encounter
--- OUTSIDE RECORDS SUMMARY | 2025-03-01 02:58 | XMS_ITS | Encounter Summary ---
Author Organization [place] Address [address] [place] [address] Care Team Providers Care Bike Mechanic Name Role Phone Carlos Joyner MD Unavailable +[phone] Jadon Murray MD Unavailable +[phone] Maru Villagomez RN Unavailable Unavailable Ang Slade MD Unavailable +[phone] Carlos Joyner MD Unavailable + [phone] Ang Slade MD Unavailable +[phone] Lakshmi Wilhelm-C Unavailable +[phone] Heladio Willoughby MD Primary Care Provider [phone] Heladio Willoughby MD Unavailable Alissa Perez PA-C Unavailable [phone] Lakshmi Wilhelm PA-C Unavailable +[phone] Aidee Valero PA-C Unavailable +[phone] Carlos Joyner MD Unavailable +[phone] Jadon Floyd MD Unavailable +[phone] Cayden Bejarano MD Unavailable Encounter Details Date Type Department Care Team (Late st Contact Info) Description 01/12/2025 Results Follow-Up [facility] [address] [place] [address] Sugey Mccoy, SCHOOL YEAR NANNY MILITARY PAY CLERK [address] [place] [address] Subj: Sleep study results Social History Tobacco [...] Answer Date Recorded PHQ-2 Score 0 09/13/2024 [facility] [...] [facility] [address] [phone] Jadon Floyd MD [address] [place] [address] 716725 03/23/2025 12:45 PM CDT Appointment [facility] Imaging [address] [place] [address] Cayden Bejarano MD [address] [place] [address] [address] [place] [address] 03/23/2025 1:30 PM CDT Hospital Encounter [facility] Imaging [address] [place] [address] [place] [address] [place] [address] 03/25/2025 10:20 AM CDT Virtual Visit [facility] [place] [address] [facility] [address] [place] [address] [place] [address] [place] [address] 04/04/2025 12:00 PM SUPERVISOR CYTOGENETIC LABORATORY Office Visit [facility] Sleep [facility] [address] [place] [address] Sugey Mccoy APRN [facility] [address] [place] [address] [address] [place], [place] 870914 05/30/2025 10:20 AM SUPERVISOR CYTOGENETIC LABORATORY Appointment [facility] [address] [facility] [address] [place] [address] Carlos Joyner MD [address] [place] [address] 700605 05/31/2025 2:00 PM SUPERVISOR CYTOGENETIC LABORATORY Virtual Visit [facility] Clinic [address] 4th [place] [address] Carlos Joyner MD [address] [place] [address] 124495 07/25/2025 11:00 AM SUPERVISOR CYTOGENETIC LABORATORY Office Visit [place] [phone] [place] [address] [place] [address] [place] [address] documented as of this encounter Visit Diagnoses Not on filedocumented in this encounter Care Teams Bike Mechanic Relationship Specialty [place] [address] [place] [address] PCP - General 03/05/23 Carlos Joyner MD [address] [place] [address] Urology 12/09/19 Jadon Murray MD [facility] [address] [phone] Referring Physician Pediatric Surgery 12/09/19 Maru Villagomez, RN Registered Nurse 12/10/19 Ang Slade MD [address] [place] [address] 661775 Urology 04/24/20 Carlos Joyner MD [address] [place] [address] 618755 Assigned Surgical Provider 12/24/20 Ang Slade MD [address] [place] [address] 240595 Urology 12/18/22 Lakshmi Wilhelm PA-C [address] [place] [address] 170665 Physician Transit Mechanic Urology 02/03/23 [place] [address] [place] [address] Assigned PCP 02/06/23 Alissa Perez PA-C [address] [place] [address] Physician Transit Mechanic Surgery 09/04/23 Lakshmi Wilhelm PA-C [address] [place] [address] 15102 Physician Transit Mechanic Urology 09/16/23 Aidee Valero PA-C [address] [place] [address] 67102 Assigned Musculoskeletal Provider 04/17/24 02/14/25 Carlos Joyner MD [address] [place] [address] 42794 Urology 01/26/25 Jadon Floyd MD [address] [place] [address] 10080 Physician Physical Medicine and Rehabilitation 01/31/25 [place] [address] [place] [address] Assigned Musculoskeletal Provider 02/15/25 Tanisha Marlow 4120 [facility] [address] 03/30/24 documented as of this encounter
--- OUTSIDE RECORDS SUMMARY | 2025-03-01 02:58 | XMS_ITS | Encounter Summary ---
Author Organization [place] Address [address] [place] [address] Care Team Providers Care Controlled Atmospheric Furnace Brazer Name Role Phone Carlos Joyner MD Unavailable + [phone] Jadon Murray MD Unavailable +[phone] Maru Villagomez RN Unavailable Unavailable Ang Slade MD Unavailable +[phone] Carlos Joyner MD Unavailable +[phone] Ang Slade MD Unavailable +[phone] Lakshmi Wilhelm-C Unavailable +[phone] Heladio Willoughby MD Primary Care Provider [phone] Heladio Willoughby MD Unavailable Alissa Perez PA-C Unavailable [phone] Lakshmi Wilhelm-C Unavailable +[phone] Aidee Valero PA-C Unavailable +[phone] Carlos Joyner MD Unavailable +[phone] Jadon Floyd MD Unavailable +[phone] Cayden Bejarano MD Unavailable Encounter Details Date Type Department Care Team (Late st Contact Info) Description 08/26/2024 [facility] Urology [place] [address] [facility] 4th [place] [address] Sarika Tomlinson Social History Tobacco [...] Answer Date Recorded PHQ-2 Score Incomplete 07/21/2024 [facility] Occupat ional [...] [facility] [address] [phone] Jadon Floyd MD [address] [place] [address] 03/23/2025 12:45 PM CDT Appointment [facility] Imaging [address] [facility] [address] [place] [address] Cayden Bejarano MD [address] [place], [place] [address]A[address] [place] [address] 03/23/2025 1:30 PM CDT Hospital Encounter [facility] Imaging [address] [place] [address] Cayden Bejarano MD [address] [place], [place] [address]A[address] [place] [address] 03/25/2025 10:20 AM CDT Virtual Visit [facility] [place] [address] [address] [place] [address] Cayden Bejarano MD [address] [place] [address] [address] [place] [address] 04/04/2025 12:00 PM CURRICULUM WRITER Office Visit [facility] [place] [address] [place] [address] Sugey Mccoy, INTELLIGENCE SPECIALIST [facility] 606 [address] [address] [place] [address] 05/30/2025 10:20 AM CURRICULUM WRITER Appointment [facility] [address] [facility] [address] [place] [address] Carlos Joyner MD [address] [place] [address] 987185 05/31/2025 2:00 PM CURRICULUM WRITER Virtual Visit [facility] [place] 909 [facility] 4th [place] [address] Carlos Joyner MD [address] [place] [address] 962955 07/25/2025 11:00 AM CURRICULUM WRITER Office Visit [facility] [address] [place] [address] [place] [address] [place], [place] [phone] documented as of this encounter Visit Diagnoses Not on filedocumented in this encounter Care Teams Controlled Atmospheric Furnace Brazer Relationship Specialty Start [place] [address] [place] [address] PCP - General 03/05/23 Carlos Joyner MD [address] [place] [address] 66188 Urology 12/09/19 Jadon Murray MD [facility] 2530 [facility] 550 [place] [address] Referring Physician Pediatric Surgery 12/09/19 Maru Villagomez, RN Registered Nurse 12/10/19 Ang Slade MD 420 [facility] 394 [place], [place] 526435 Urology 04/24/20 Carlos Joyner MD [address] [place] [address] [phone] Assigned Surgical Provider 12/24/20 Ang Slade MD 420 [facility] 394 [place], [place] 923645 MD Urology 12/18/22 Lakshmi Wilhelm PA-C [address] [place] [address] 855605 Physician Hims Manager Urology 02/03/23 [place] [address] [place] [address] Assigned PCP 02/06/23 Alissa Perez PA-C [address] [place] [address] 926075 Physician Hims Manager Surgery 09/04/23 Lakshmi Wilhelm PA-C [address] [place] [address] 332905 Physician Hims Manager Urology 09/16/23 Aidee Valero PA-C 909 [place] [address] Assigned Musculoskeletal Provider 04/17/24 02/14/25 Carlos Joyner MD [address] [place] [address] 37642 Urology 01/26/25 Jadon Floyd MD [address] [place] [address] 02609 Physician Physical Medicine and Rehabilitation 01/31/25 [place] [address] [place] [address] Assigned Musculoskeletal Provider 02/15/25 Tanisha Marlow 4120 [facility] [id number] 03/30/24 documented as of this encounter
--- OUTSIDE RECORDS SUMMARY | 2025-03-01 02:58 | XMS_ITS | Encounter Summary ---
Author Organization [place] Address [address] [place] [address]. [place] [address] Care Team Providers Care Field Recorder Name Role Phone Carlos Joyner MD Unavailable +[phone] Jadon Murray MD Unavailable +[phone] Maru Villagomez RN Unavailable Unavailable Ang Slade MD Unavailable +[phone] Carlos Joyner MD Unavailable +[phone] Ang Slade MD Unavailable +[phone] Lakshmi Wilhelm-C Unavailable +[phone] Heladio Willoughby MD Primary Care Provider [phone] Heladio Willoughby MD Unavailable Alissa Perez PA-C Unavailable [phone] Lakshmi Wilhelm-C Unavailable [phone] Aidee Valero PA-C Unavailable [phone] Encounter Details Date Type Department Care Team (Late st Contact Info) Description 01/24/2025 Telephone [facility] [address] [place] [address] [place] [address] [place] [address] Social History Tobacco Use Types [...] RN called and spoke to Tanisha at [facility]. Reviewed referral and provider recommendation.Provided referral scheduling phone number. Tanisha verbalized understanding and denies questions. Kalee Vogel RN [facility] * Telephone Encounter - Heladio Willoughby [...] team know. Thanks, Heladio Elder. MD Case [facility] 01/24/2025 documented in this encounter Plan of Treatment Upcoming Encounters Date Type Department Care Team (Late st Contact Info) Description 03/03/2025 9:00 AM CDT Office Visit [facility] Physical Medicine and Rehabilitation Clinic [address] 3rd [place] [address] Jadon Floyd MD [address] [place] [address] 145995 03/23/2025 12:45 PM CDT Appointment [facility] Imaging [address] [place] [address] [place]den [place]jar[place] [address] [place] [address] [address] [place] [address] 03/23/2025 1:30 PM CDT Hospital Encounter [facility] [address] [facility] [address] [place] [address] Cayden [place]jar[place] [address] [place] [address] [address] [place] [address] 03/25/2025 10:20 AM CDT Virtual Visit [facility] [place] [address] [place] [address] [address] [place] [address] [place] [address] [place] [address] 04/04/2025 12:00 PM SALES ORDER COORDINATOR Office Visit [facility] Sleep [address] [phone] Sugey Mccoy, BULK FOLDER [address] [phone] 05/30/2025 10:20 AM SALES ORDER COORDINATOR Appointment [facility] Imaging [address] [facility] [address] [place] [address] Carlos Joyner MD [address] [place] [address] 742015 05/31/2025 2:00 PM SALES ORDER COORDINATOR Virtual Visit [facility] Urology Clinic [address] 4th [place] [address]48[address] Carlos Joyner MD [address] [place] [address] 07/25/2025 11:00 AM SALES ORDER COORDINATOR Office Visit [facility] [address] [place] [address] [place] [address] [place], [place] [phone] documented as of this encounter Visit Diagnoses Not on filedocumented in this encounter Care Teams Field Recorder Relationship Specialty Start Date End Date Heladio [place] [address] [place] [address] [phone] PCP - General 03/05/23 Carlos Joyner MD [address] [place] [address] 159965 Urology 12/09/19 Jadon Murray MD [facility] [address] [address] Referring Physician Pediatric Surgery 12/09/19 Maru Villagomez, OTILIO Registered Nurse 12/10/19 Ang Slade MD [address] [place] [address] 15728 Urology 04/24/20 Carlos Joyner MD [address] [place] [address] 569605 Assigned Surgical Provider 12/24/20 Ang Slade MD [address] [place] [address] 795175 MD Urology 12/18/22 Lakshmi Wilhelm PA-C [address] [place] [address] 43045 Physician Ultimate Hoops Scoreboard Operator Urology 02/03/23 [place] [address] [place] [address] Assigned PCP 02/06/23 Alissa Perez PA-C [address] [place] [address] 300035 Physician Ultimate Hoops Scoreboard Operator Surgery 09/04/23 Lakshmi Wilhelm PA-C [address] [place] [address] 229705 Physician Ultimate Hoops Scoreboard Operator Urology 09/16/23 Aidee Valero PA-C [address] [place] [address] 881395 Assigned Musculoskeletal Provider 04/17/24 02/14/25 Tanisha Marlow 4120 [facility] [address] 03/30/24 documented as of this encounter
--- OUTSIDE RECORDS SUMMARY | 2025-03-01 02:58 | XMS_ITS | Encounter Summary ---
Author Organization [place] Address [address] [place] [address] Care Team Providers Care Auto Garage Attendant Name Role Phone Carlos Joyner MD Unavailable +[phone] Jadon Murray MD Unavailable +[phone] Maru Villagomez RN Unavailable Unavailable Ang Slade MD Unavailable +[phone] Carlos Joyner MD Unavailable +[phone] Ang Slade MD Unavailable +[phone] Lakshmi Wilhelm-C Unavailable +[phone] Heladio Willoughby MD Primary Care Provider [phone] Heladio Willoughby MD Unavailable Alissa Perez PA-C Unavailable [phone] Lakshmi Wilhelm-C Unavailable +[phone] Aidee Valero PA-C Unavailable [phone] Carlos Joyner MD Unavailable +[phone] Jadon Floyd MD Unavailable [phone] Cayden Bejarano MD Unavailable Encounter Details Date Type Department Care Team (Late st Contact Info) Description 06/23/2024 [facility] Urology [place] [address] [facility] 4th [place] [address] Carlos Joyner MD [address] [place] [address] 307555 Social History Tobacco Use Types Packs/Day Years [...] Description 03/03/2025 9:00 AM CDT Office Visit [facility] Physical Medicine and Rehabilitation Clinic [address] 3[address] [place] [address] Jadon Floyd MD [address] [place] [address]11 03/23/2025 12:45 PM CDT Appointment [facility] Imaging [address] [facility] [address] [place] [address] [place] [address] [place] [address] 03/23/2025 1:30 PM CDT Hospital Encounter [facility] [address] [facility] [address] [place] [address] [place] [address] [place] [address] 03/25/2025 10:20 AM CDT Virtual Visit [facility] Sports Medicine [facility] [address] [place] [address] [address] [place] [address] [place] [address] [place] [address] 04/04/2025 12:00 PM SENIOR ANIMAL TRAINER Office Visit [facility] Sleep [facility] [address] [place] [phone] Sugey Mccoy, GEOSCIENCE LABORATORY TECHNICIAN [address] [address] 05/30/2025 10:20 AM SENIOR ANIMAL TRAINER Appointment [facility] Imaging [address] [facility] [address] [place] [address] Carlos Joyner MD [address] [place] [address] 526875 05/31/2025 2:00 PM SENIOR ANIMAL TRAINER Virtual Visit [facility] Urology Clinic [address] [place] [address] Carlos Joyner MD 909 [place] [address] 07/25/2025 11:00 AM SENIOR ANIMAL TRAINER Office [facility] [address] [place] [address] [place] [address] [place], [place] [phone] documented as of this encounter Visit Diagnoses Not on filedocumented in this encounter Care Teams Auto Garage Attendant Relationship Specialty Start [place] [address] [address] [place], [place] [phone] PCP - General 03/05/23 Carlos Joyner MD [address] [place] [address] 24761 Urology 12/09/19 Jadon Murray MD [facility] [address] [address] Referring Physician Pediatric Surgery 12/09/19 Maru Villagomez, OTILIO Registered Nurse 12/10/19 Ang Slade MD [address] [place] [address] 86051 Urology 04/24/20 Carlos Joyner MD [address] [place] [address] 36639 Assigned Surgical Provider 12/24/20 Ang Slade MD [address] [place] [address] 52087 Urology 12/18/22 Lakshmi Wilhelm PA-C [address] [place] [address] 10458 Physician Food Service Director Urology 02/03/23 [place] [address] [place] [address] Assigned PCP 02/06/23 Alissa Perez PA-C [address] [place] [address] 56567 Physician Food Service Director Surgery 09/04/23 Lakshmi Wilhelm PA-C [address] [place] [address] 85274 Physician Food Service Director Urology 09/16/23 Aidee Valero PA-C [address] [place] [address] 57540 Assigned Musculoskeletal Provider 04/17/24 02/14/25 Carlos Joyner MD [address] [place] [address]20 Urology 01/26/25 Jadon Floyd MD [address] [place] [address] 258955 Physician Physical Medicine and Rehabilitation 01/31/25 [place] [address] [place] [address] Assigned Musculoskeletal Provider 02/15/25 Tanisha Marlow 4120 [facility] [address] 03/30/24 documented as of this encounter
--- OUTSIDE RECORDS SUMMARY | 2025-03-01 02:58 | XMS_ITS | Encounter Summary ---
Author Organization [place] Address [address] [place] [address] Care Team Providers Care Technical Testing Engineer Name Role Phone Carlos Joyner MD Unavailable +[phone] Jadon Murray MD Unavailable +[phone] Maru Villagomez RN Unavailable Unavailable Ang Slade MD Unavailable +[phone] Carlos Joyner MD Unavailable +[phone] Ang Slade MD Unavailable [phone] Lakshmi Wilhelm PA-C Unavailable +[phone] Heladio Willoughby MD Primary Care Provider [phone] Heladio Willoughby MD Unavailable Alissa Perez PA-C Unavailable [phone] Lakshmi Wilhelm PA-C Unavailable [phone] Carlos Joyner MD Unavailable +[phone] Jadon Floyd MD Unavailable +[phone] Cayden Bejarano MD Unavailable Encounter Details Date Type Department Care Team (Late st Contact Info) Description 02/22/2025 [facility] [address] [facility] [address] [place] [address] Eliza Carty, OT 909 [place] [address] Social History Tobacco Use Types Packs/Day Years [...] than three times a week 07/16/2024 Attends [employer] Not on file 07/16 Active Member [...] Description 03/03/2025 9:00 AM CDT Office Visit [facility] Physical Medicine and Rehabilitation Clinic [address] [phone] Jadon Floyd MD [address] [place] [address] 03/23/2025 12:[address] [facility] Imaging [address] [facility] [address] [place] [address] [place] [address] [facility] [address] [place] [address] 03/23/2025 1:30 PM CDT Hospital Encounter [facility] Imaging [address] [facility] [address] [place] [address] [place] [address] [facility] [address] [place] [address] 03/25/2025 10:20 AM CDT Virtual Visit [facility] [place] [address] [address] [place] [address] [place] [address] [place] [address] 04/04/2025 12:00 PM BANQUET SERVER ON CALL Office Visit [facility] [place] [address] [place] [address] Sugey Mccoy APRN [facility] [address] [place] [address] [address] [place], [place] 129284 05/30/2025 10:20 AM BANQUET SERVER ON CALL Appointment [facility] Imaging [address] [place] [address] Carlos Joyner MD [address] [place] [address] 858075 05/31/2025 2:00 PM BANQUET SERVER ON CALL Virtual Visit [facility] Urology Clinic [place] 909 [facility] 4th [place] [address] Carlos Joyner MD [address] [place] [address] 061145 07/25/2025 11:00 AM BANQUET SERVER ON CALL Office Visit [facility] [address] [place] [address] [place] [address] [facility] [place] [address] documented as of this encounter Visit Diagnoses Not on filedocumented in this encounter Care Teams Technical Testing Engineer Relationship Specialty Start [place] [address] [place] [address] PCP - General 03/05/23 Carlos Joyner MD [address] [place] [address] 86003 Urology 12/09/19 Jadon Murray MD [facility] 2530 [facility] [address] [address] Referring Physician Pediatric Surgery 12/09/19 Maru Villagomez, OTILIO Registered Nurse 12/10/19 Ang Slade MD [address] [place] [address] 719115 Urology 04/24/20 Carlos Joyner MD [address] [place] [address] 15597 Assigned Surgical Provider 12/24/20 Ang Slade MD [address] [place] [address] 273775 Urology 12/18/22 Lakshmi Wilhelm PA-C [address] [place] [address] 174125 Physician Data Capture Clerk Urology 02/03/23 [place] [address] [place] [address] Assigned PCP 02/06/23 Alissa Perez PA-C [address] [place] [address] 238015 Physician Data Capture Clerk Surgery 09/04/23 Lakshmi Wilhelm PA-C [address] [place] [address] 478585 Physician Data Capture Clerk Urology 09/16/23 Carlos Joyner MD [address] [place] [address] 283105 Urology 01/26/25 Jadon Floyd MD [address] [place] [address] 304705 Physician Physical Medicine and Rehabilitation 01/31/25 [place] [address] [place], [place] 856007 Assigned Musculoskeletal Provider 02/15/25 Tanisha Marlow 4120 [facility] [id number] 03/30/24 documented as of this encounter
--- OUTSIDE RECORDS SUMMARY | 2025-03-01 02:58 | XMS_ITS | Encounter Summary ---
Author Organization [place] Address [address] [place] [address] Care Team Providers Care Contract Lead Name Role Phone Carlos Joyner MD Unavailable +[phone] Jadon Murray MD Unavailable +[phone] Maru Villagomez RN Unavailable Unavailable Ang Slade MD Unavailable +[phone] Carlos Joyner MD Unavailable +[phone] Ang Slade MD Unavailable +[phone] Lakshmi WilhelmC Unavailable +[phone] Heladio Willoughby MD Primary Care Provider +[phone] Heladio Willoughby MD Unavailable Alissa Perez-Juan A Unavailable [phone] Lakshmi Wilhelm PA-C Unavailable +[phone] Carlos Joyner MD Unavailable +[phone] Jadon Floyd MD Unavailable +[phone] Cayden Bejarano MD Unavailable Reason for Visit * Reason Onset Date Comments Pre Visit Planning - Done 02/24/2025 Encounter Details Date Type Department Care Team (Late st Contact Info) Description 02/24/2025 PRE VISIT [facility] Urology [place] 0[address] [facility] 4th [place] [address] Estrella Martinez, CM 420 [facility], ROOM [address] [place] [address] Pre Visit Planning - Done Social History [...] 07/16/2024 Attends Religion Services Not on file 07/16 Active Member [...] [facility] [address] [address] Jadon Floyd MD [address] [place] [address] 03/23/2025 12:45 PM CDT Appointment [facility] [address] [facility] [address] [place] [address] [place] [address] [place] [address] 03/23/2025 1:30 PM CDT Hospital Encounter [facility] [address] [facility] [address] [place] [address] [place] [address] [place] [address] [address] [place] [address] 03/25/2025 10:20 AM CDT Virtual Visit [facility] Sports Medicine [facility] [address] [place] [address] [address] [place] [address] [place] [address] [place] [address] 04/04/2025 12:00 PM TOOL GRINDER OPERATOR Office Visit [facility] Sleep [address] [phone] Sugey Mccoy APRN [address] [address] 05/30/2025 10:20 AM TOOL GRINDER OPERATOR Appointment [facility] Imaging [address] [facility] [address] [place] [address] Carlos Joyner MD [address] [place] [address] 055245 05/31/2025 2:00 PM TOOL GRINDER OPERATOR Virtual Visit [facility] Urology Clinic [address] 4th [place] [address] Carlos Joyner MD [address] [place] [address] 07/25/2025 11:00 AM TOOL GRINDER OPERATOR Office Visit [facility] [address] [place] [address] [place] [address] [facility] [place] [place] 2464368 documented as of this encounter Visit Diagnoses Not on filedocumented in this encounter Care Teams Contract Lead Relationship Specialty Start [place] [address] [address] [place], [place] 0403768 PCP - General 03/05/23 Carlos Joyner MD [address] [place] [address] Urology 12/09/19 Jadon Murray MD [facility] 2530 [facility] 550 [place] [address] Referring Physician Pediatric Surgery 12/09/19 Maru Villagomez, RN Registered Nurse 12/10/19 Ang Slade MD [address] [place] [address] 394 [place] [address] Urology 04/24/20 Carlos Joyner MD [address] [place] [address] Assigned Surgical Provider 12/24/20 Ang Slade MD [address] [place] [address] 394 [place] [address] Urology 12/18/22 Lakshmi Wilhelm PA-C [address] [place] [address] 12690 Physician Coal Hiker Urology 02/03/23 [place] [address] [place] [address] Assigned PCP 02/06/23 Alissa Perez PA-C [address] [place] [address] 10091 Physician [place] Surgery 09/04/23 Lakshmi Wilhelm PA-C [address] [place] [address]209 Physician [place]iker Urology 09/16/23 Carlos Joyner MD [address] [place] [address] Urology 01/26/25 Jadon Floyd MD [address] [place] [address] Physician Physical Medicine and Rehabilitation 01/31/25 [place] [address] [place] [address] Assigned Musculoskeletal Provider 02/15/25 Tanisha Marlow 4120 [facility] [place] [address] 03/30/24 documented as of this encounter
--- OUTSIDE RECORDS SUMMARY | 2025-03-01 02:59 | XMS_ITS | Encounter Summary ---
Author Organization [place] Address [address] [place] [address] Care Team Providers Care Ocular Care Technician Name Role Phone Carlos Joyner MD Unavailable +[phone] Jadon Murray MD Unavailable +[phone] Maru Villagomez RN Unavailable Unavailable Ang Slade MD Unavailable +[phone] Carlos Joyner MD Unavailable +[phone] Ang Slade MD Unavailable +[phone] Lakshmi WilhelmC Unavailable +[phone] Heladio Willoughby MD Primary Care Provider [phone] Heladio Willoughby MD Unavailable Alissa Perez-Juan A Unavailable [phone] Lakshmi Wilhelm PA-C Unavailable +[phone] Carlos Joyner MD Unavailable +[phone] Jadon Floyd MD Unavailable +[phone] Cayden Bejarano MD Unavailable Encounter Details Date Type Department Care Team (Latest Contact Info) Description 02/28/2025 Travel Social History Tobacco Use Types Packs/Day [...] Answer Date Recorded PHQ-2 Score 0 09/13/2024 [facility] Occupational Stress Questionnaire Answer [...] [facility] [address] [phone] Jadon Floyd MD [address] [place] [address] 03/23/2025 12:[address] [facility] Imaging [address] [facility] [address] [place] [address] [place] [address] [place] [address] 03/23/2025 1:30 PM CDT Hospital Encounter [facility] Imaging [address] [place] [address] Cayden [place]jar[place] [address] [place] [address] 03/25/2025 10:20 AM CDT Virtual Visit [facility] [place] [address] [place] [address] Cay[place] [address] [place] [address] 04/04/2025 12:00 PM BEVELLER OPERATOR Office [facility] [place] [address] [place] [address] Darius Elvir[place]ia Elder, SCREENING SPECIALIST [facility] [address] [place], [place] [address] 05/30/2025 10:20 AM BEVELLER OPERATOR Appointment [facility] Imaging [address] [place] [place] [address] Carlos Joyner MD [address] [place] [address] 470715 05/31/2025 2:00 PM BEVELLER OPERATOR Virtual Visit [facility] [place] 909 [facility] 4th [place] [phone] Carlos Joyner MD [address] [place] [address] 07/25/2025 11:00 AM BEVELLER OPERATOR Office Visit [facility] [address] [place] [address] [place] [address] [place] [address] documented as of this encounter Visit Diagnoses Not on filedocumented in this encounter Care Teams Ocular Care Technician Relationship Specialty Start [place] [address] [place] [address] PCP - General 03/05/23 Carlos Joyner MD [address] [place] [address] Urology 12/09/19 Jadon Murray MD [facility] 2530 [facility] 550 [place] [address] Referring Physician Pediatric Surgery 12/09/19 Maru Villagomez, RN Registered Nurse 12/10/19 Ang Slade MD [address] [place] [address] 394 [place], [place] 633325 Urology 04/24/20 Carlos Joyner MD [address] [place] [address] 966245 Assigned Surgical Provider 12/24/20 Ang Slade MD [address] [place] [address] 741445 Urology 12/18/22 Lakshmi Wilhelm PA-C [address] [place] [address] 109415 Physician Business Applications Manager Urology 02/03/23 [place] [address] [place] [address] Assigned PCP 02/06/23 Alissa Perez PA-C [address] [place] [address] 299295 Physician Business Applications Manager Surgery 09/04/23 Lakshmi Wilhelm PA-C [address] [place] [address] 703545 Physician Business Applications Manager Urology 09/16/23 Carlos Joyner MD 909 [place], [place] 847535 Urology 01/26/25 Jadon Floyd MD 9 [place], [place] 120815 Physician Physical Medicine and Rehabilitation 01/31/25 [place] [address] [place] [address] Assigned Musculoskeletal Provider 02/15/25 Tanisha Marlow 4120 [facility] [address] 03/30/24 documented as of this encounter
--- OUTSIDE RECORDS SUMMARY | 2025-03-01 02:59 | XMS_ITS | Encounter Summary ---
Author Organization [place] Address [address] [place] [address] Care Team Providers Care Development Spec Name Role Phone Carlos Joyner MD Unavailable +[phone] Jadon Murray MD Unavailable +[phone] Maru Villagomez RN Unavailable Unavailable Ang Slade MD Unavailable +[phone] Carlos Joyner MD Unavailable +[phone] Ang Slade MD Unavailable +[phone] Lakshmi Wilhelm-C Unavailable +[phone] Heladio Willoughby MD Primary Care Provider [phone] Heladio Willoughby MD Unavailable Alissa Perez PA-C Unavailable [phone] Lakshmi Wilhelm-C Unavailable +[phone] Aidee Valero PA-C Unavailable +[phone] Carlos Joyner MD Unavailable +[phone] Jadon Floyd MD Unavailable +[phone] Cayden Bejarano MD Unavailable Reason for Visit * Reason Onset Date Comments Forms 02/06/2024 Ger [facility] [employer] - Medication Authorization Form Encounter Details Date Type Department Care Team (Late st Contact Info) Description 02/06/2024 [facility] [address] [place] [address] [place] [address] [place] [address] Forms ([facility] Education [employer] 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 Social History Tobacco Use Types Packs/Day Years [...] Authorization Form Who is the form from? [facility] (if other please explain) Where did/will the form come from? form was sent via [employer] When is form/letter needed by: RUPA How would you like the form/letter returned: MyChart Printed forms and placed in provider's basket for review and signature Kasia Gutierrez Lead Broadcast Journalist [facility] documented in this encounter Plan of Treatment Upcoming Encounters Date Type Department Care Team (Late st Contact Info) Description 03/03/2025 9:00 AM CDT Office Visit [facility] Physical Medicine and Rehabilitation Clinic [address] [phone] Jadon Floyd MD [address] [place] [address] 03/23/2025 12:45 PM CDT Appointment [facility] Imaging [address] [facility] [address] [place] [address] Cayden Bejarano [place] [address] [place] [address] 03/23/2025 1:30 PM CDT Hospital Encounter [facility] Imaging [address] [place] [address] [place] [address] [place] [address] 03/25/2025 10:20 AM CDT Virtual Visit [facility] Sports Medicine Clinic [place] [address] [place] [address] [place] [address] [place] [address] 04/04/2025 12:00 PM HOME PERFORMANCE LABORER Office Visit [facility] [place] [address] [place] [address] Sugey Mccoy, NESTOR [facility] 606 [facility] [address] [place] [address] 05/30/2025 10:20 AM HOME PERFORMANCE LABORER Appointment [facility] Imaging [address] [place] [address] Carlos Joyner MD [address] [place] [address] 21460455 05/31/2025 2:00 PM HOME PERFORMANCE LABORER Virtual Visit [facility] Urology Clinic [address] 4th [place] [address] Carlos Joyner MD [address] [place] [address] 857135 07/25/2025 11:00 AM HOME PERFORMANCE LABORER Office Visit [facility] [address] [place] [address] [place] [address] [place] [address] documented as of this encounter Visit Diagnoses Not on filedocumented in this encounter Care Teams Development Spec Relationship Specialty Start Date End Date Heladio [place]by [place] [address] [place] [address] PCP - General 03/05/23 Carlos Joyner MD [address] [place] [address] 259855 Urology 12/09/19 Jadon Murray MD [facility] 2530 [facility] 550 [place] [address] Referring Physician Pediatric Surgery 12/09/19 Maru Villagomez, RN Registered Nurse 12/10/19 Ang Slade MD 420 [facility] 394 [place], [place] 308135 MD Urology 04/24/20 Carlos Joyner MD [address] [place] [address] 679965 Assigned Surgical Provider 12/24/20 Ang Slade MD 420 [facility] 394 [place], [place] 291055 MD Urology 12/18/22 Lakshmi Wilhelm PA-C [address] [place] [address] 919075 Physician Procurement Consultant Urology 02/03/23 [place] [address] [place] [address] Assigned PCP 02/06/23 Alissa Perez PA-C [address] [place] [address] 035505 Physician Procurement Consultant Surgery 09/04/23 Lakshmi Wilhelm PA-C [address] [place] [address] Physician Procurement Consultant Urology 09/16/23 Aidee Valero PA-C 9 [place] [address] Assigned Musculoskeletal Provider 04/17/24 02/14/25 Carlos Joyner MD [address] [place] [address] Urology 01/26/25 Jadon Floyd MD [address] [place] [address] Physician Physical Medicine and Rehabilitation 01/31/25 [place] [address] [place] [address] Assigned Musculoskeletal Provider 02/15/25 Tanisha Marlow [facility]0 [place] [address] 03/30/24 documented as of this encounter
--- OUTSIDE RECORDS SUMMARY | 2025-03-01 02:59 | XMS_ITS | Encounter Summary ---
Author Organization [place] Address [address] [place] [address] Care Team Providers Care School Age Teacher Name Role Phone Carlos Joyner MD Unavailable +[phone] Jadon Murray MD Unavailable +[phone] Maru Vlilagomez RN Unavailable Unavailable Ang Slade MD Unavailable +[phone] Carlos Joyner MD Unavailable +[phone] Ang Slade MD Unavailable +[phone] Lakshmi Wilhelm-C Unavailable +[phone] Heladio Willoughby MD Primary Care Provider [phone] Heladio Willoughby MD Unavailable Alissa Perez PA-C Unavailable [phone] NvLakshmi morales-C Unavailable +[phone] Aidee Valero PA-C Unavailable [phone] Carlos Joyner MD Unavailable +[phone] Jadon Floyd MD Unavailable +[phone] Encounter Details Date Type Department Care [...] Answer Date Recorded PHQ-2 Score 0 09/13/2024 [facility] - [...] 03/03/2025 9:00 AM CDT Office Visit [facility] Physical Medicine and Rehabilitation Clinic [address] [phone] Jadon Floyd MD [address] [place] [address] 03/23/2025 12:45 PM CDT Appointment [facility] Imaging [address] [facility] [address] [place] [address] [place] [address] [facility] [address] [place] [address] 03/23/2025 1:30 PM CDT Hospital Encounter [facility] Imaging [address] [place] [address] [place] [address] [facility] [address] [place] [address] 03/25/2025 10:20 AM CDT Virtual Visit [facility] Sports Medicine [facility] [place] [address] [place], [place] [address] [place] [address] [place] [address] [place] [address] [address] [place] [address] 04/04/2025 12:00 PM MOULDER OPERATOR Office Visit [facility] [place] [address] [place] [address] DariusElvirginia Elder, COD CLERK [facility] [address] [place], [place] [address] 05/30/2025 10:20 AM MOULDER OPERATOR Appointment [facility] Imaging [address] [place] [address] Carlos Joyner MD [address] [place] [address] 003065 05/31/2025 2:00 PM MOULDER OPERATOR Virtual Visit [facility] Urology Clinic [place] 909 [facility] 4th [place] [address] Carlos Joyner MD [address] [place] [address] [phone] 07/25/2025 11:00 AM MOULDER OPERATOR Office Visit [facility] [address] [place] [address] [place] [address] [place] [address] documented as of this encounter Visit Diagnoses Not on filedocumented in this encounter Care Teams School Age Teacher Relationship Specialty Start Date End Date Heladio [place]by [place] [address] [place] [address] PCP - General 03/05/23 Carlos Joyner MD [address] [place] [address] [id number] Urology 12/09/19 Jadon Murray MD [facility] 2530 [facility] 550 [place] [address] Referring Physician Pediatric Surgery 12/09/19 Maru Villagomez, RN Registered Nurse 12/10/19 Ang Slade MD [address] [place] [address] 394 [place] [address] Urology 04/24/20 Carlos Joyner MD [address] [place] [address] 104015 Assigned Surgical Provider 12/24/20 Ang Slade MD [address] [place] [address] 394 [place] [address] Urology 12/18/22 Lakshmi Wilhelm PA-C [address] [place] [address] 409675 Physician Intake Manager Urology 02/03/23 [place] [address] [place] [address] Assigned PCP 02/06/23 Alissa Perez PA-C [address] [place] [address] 509215 Physician Intake Manager Surgery 09/04/23 Lakshmi Wilhelm PA-C [address] [place] [address] 389835 Physician Intake Manager Urology 09/16/23 Aidee Valero PA-C [address] [place] [address] 858815 Assigned Musculoskeletal Provider 04/17/24 02/14/25 Carlos Joyner MD [address] [place] [address] 627945 Urology 01/26/25 Jadon Floyd MD [address] [place] [address] 232375 Physician Physical Medicine and Rehabilitation 01/31/25 Tanisha Marlow 4120 [facility] [address] 03/30/24 documented as of this encounter
--- OUTSIDE RECORDS SUMMARY | 2025-03-01 02:59 | XMS_ITS | Encounter Summary ---
Author Organization [place] Address [address] [place] [address] Care Team Providers Care Risk Control Analyst Name Role Phone Carlos Joyner MD Unavailable +[phone] Jadon Murray MD Unavailable +[phone] Maru Villagomez RN Unavailable Unavailable Ang Slade MD Unavailable +[phone] Carlos Joyner MD Unavailable +[phone] Ang Slade MD Unavailable [phone] Lakshmi Wilhelm-C Unavailable +[phone] Heladio Willoughby MD Primary Care Provider [phone] Heladio Willoughby MD Unavailable Alissa Perez PA-C Unavailable [phone] Lakshmi Wilhelm-C Unavailable +[phone] Aidee Valero PA-C Unavailable +[phone] Carlos Joyner MD Unavailable +[phone] Jadon Floyd MD Unavailable +[phone] Cayden Bejarano MD Unavailable Encounter Details Date Type Department Care Team (Late st Contact Info) Description 05/05/2023 [facility] U[facility] Clinic [place] 076679 [facility] 4th [place] [address] Rosita Velasco, RN Social History [...] Medical Center Physical Medicine and Rehabilitation Clinic [address] [address] Jadon Floyd MD [address] [place] [address] 587475 03/23/2025 12:[address] [facility] Imaging [address] [facility] [address] [place] [address] [place] [address] [place] [address] 03/23/2025 1:30 PM CDT Hospital Encounter [facility] Imaging [address] [facility] [address] [place] [address] [place]den [place]jar[place] [address] [place] [address] [address] [place] [address] 03/25/2025 10:20 AM CDT Virtual Visit [facility] Sports Medicine [facility] [address] [place] [address] [address] [place] [address] [place] [address] [place] [address] 04/04/2025 12:00 PM FINAL ASSEMBLY WORKER Office Visit [facility] Sleep [address] [address] Sugey Mccoy, NESTOR [address] [address] 05/30/2025 10:20 AM FINAL ASSEMBLY WORKER Appointment [facility] Imaging [address] [facility] [address] [place] [address] Carlos Joyner MD [address] [place] [address] 787035 05/31/2025 2:00 PM FINAL ASSEMBLY WORKER Virtual Visit [facility] Urology Clinic [address] 4th [place] [address] Carlos Joyner MD [address] [place] [address] 07/25/2025 11:00 AM FINAL ASSEMBLY WORKER Office Visit [facility] [place] [address] [address] [address] [place] [address] [address] [place] [phone] documented as of this encounter Visit Diagnoses Not on filedocumented in this encounter Care Teams Risk Control Analyst Relationship Specialty [place] [address] [address] [phone] PCP - General 03/05/23 Carlos Joyner MD [address] [place] [address] Urology 12/09/19 Jadon Murray MD [facility] 2530 [facility] 550 [place] [address] Referring Physician Pediatric Surgery 12/09/19 Maru Villagomez, RN Registered Nurse 12/10/19 Ang Slade MD [address] [place] [address] Urology 04/24/20 Carlos Joyner MD [address] [place] [address] 948[address] Assigned Surgical Provider 12/24/20 Ang Slade MD [address] [place] [address] 88[address] Urology 12/18/22 Lakshmi Wilhelm PA-C [address] [place] [address] 69103 Physician Electrical Controls Engineer Urology 02/03/23 [place] [address] [place] [address] Assigned PCP 02/06/23 Alissa Perez PA-C [address] [place] [address] Physician Electrical Controls Engineer Surgery 09/04/23 Lakshmi Wilhelm PA-C [address] [place] [address]128 Physician Electrical Controls Engineer Urology 09/16/23 Aidee Valero PA-C [address] [place] [address] 880515 Assigned Musculoskeletal Provider 04/17/24 02/14/25 Carlos Joyner MD [address] [place] [address] 142185 Urology 01/26/25 Jadon Floyd MD [address] [place] [address] 8[address] Physician Physical Medicine and Rehabilitation 01/31/25 [place] [address] [place] [place] [address] Assigned Musculoskeletal Provider 02/15/25 Tanisha Marlow [facility]0 [facility] [address] 03/30/24 documented as of this encounter
--- OUTSIDE RECORDS SUMMARY | 2025-03-01 02:59 | XMS_ITS | Encounter Summary ---
Author Organization [facility] Address [address] [place] [address]30 Care Team Providers Care Earth Observations Chief Scientist Name Role Phone Carlos Joyner MD Unavailable + [phone] Jadon Murray MD Unavailable +[phone] Maru Villagomez RN Unavailable Unavailable Ang Slade MD Unavailable +- [phone] Carlos Joyner MD Unavailable + [phone] Ang Slade MD Unavailable +[phone] Lakshmi Wilhelm-C Unavailable +[phone] Heladio Willoughby MD Primary Care Provider [phone] Heladio Willoughby MD Unavailable Alissa Perez PA-C Unavailable +[phone] Lakshmi Wilhelm-C Unavailable +- [phone] Aidee Valero PA-C Unavailable +[phone] Carlos Joyner MD Unavailable + [phone] Jadon Floyd MD Unavailable +[phone] Cayden Bejarano MD Unavailable Encounter Details Date Type Department Care Team (Late st Contact Info) Description 07/01/[address] [address] Joao Arceo MA Social History [...] [facility] [address] [address] Jadon Floyd MD [address] [place] [address] 794995 03/23/2025 12:45 PM CDT Appointment [facility] [address] [facility] [address] [place] [address] [place] [address] [place] [address] 03/23/2025 1:30 PM CDT Hospital Encounter [facility] [address] [facility] [address] [place] [address] [place] [address] [place] [address] [address] [place] [address] 03/25/2025 10:20 AM CDT Virtual Visit [facility] Sports [facility] [address] [place] [address] Drive [address] [place] [address] [place] [address] [place] [address] 04/04/2025 12:00 PM MENAGERIE SUPERINTENDENT Office Visit [facility] Sleep [address] [phone] Sugey Mccoy APRN [address] [address] 05/30/2025 10:20 AM MENAGERIE SUPERINTENDENT Appointment [facility] [address] [facility] [address] [place] [address] Carlos Joyner MD [address] [place] [address] 609145 05/31/2025 2:00 PM MENAGERIE SUPERINTENDENT Virtual Visit [facility] Urology Clinic [address] 4th [place] [address] Carlos Joyner MD [address] [place] [address] 07/25/2025 11:00 AM MENAGERIE SUPERINTENDENT Office Visit [facility] [place] [address] [phone] [place] [address] [address] [place] [id number] documented as of this encounter Visit Diagnoses Not on filedocumented in this encounter Care Teams Earth Observations Chief Scientist Relationship Specialty Start [place] [address] [address] [place] [id number] PCP - General 03/05/23 Carlos Joyner MD [address] [place] [address] 32744 Urology 12/09/19 Jadon Murray MD [facility] [address] [facility] 550 [place] [address] Referring Physician Pediatric Surgery 12/09/19 Maru Villagomez, RN Registered Nurse 12/10/19 Ang Slade MD [address] [place] [address] Urology 04/24/20 Carlos Joyner MD [address] [place] [address] 81500 Assigned Surgical Provider 12/24/20 Ang Slade MD [address] [place] [address] 70689 Urology 12/18/22 Lakshmi Wilhelm PA-C [address] [place] [address] 35707 Physician Metal Bed Assembler Urology 02/03/23 [place] [address] [place] [address] Assigned PCP 02/06/23 Alissa Perez PA-C [address] [place] [address] 61848 Physician Metal Bed Assembler Surgery 09/04/23 Lakshmi Wilhelm PA-C [address] [place] [address] 32926 Physician Metal Bed Assembler Urology 09/16/23 Aidee Valero PA-C [address] [place] [address] 575255 Assigned Musculoskeletal Provider 04/17/24 02/14/25 Carlos Joyner MD [address] [place] [address] 305595 Urology 01/26/25 Jadon Floyd MD [address] [place] [address]606 Physician Physical Medicine and Rehabilitation 01/31/25 [place] [address] [place] [address] Assigned Musculoskeletal Provider 02/15/25 Tanisha Marlow 4120 [facility] [address] 03/30/24 documented as of this encounter
--- OUTSIDE RECORDS SUMMARY | 2025-03-01 02:59 | XMS_ITS | Encounter Summary ---
Author Organization [facility] Address [address] [place] [address] Care Team Providers Care Cartographic Aide Name Role Phone Carlos Joyner MD Unavailable +[phone] Jadon Murray MD Unavailable +[phone] Maru Villagomez RN Unavailable Unavailable Ang Slade MD Unavailable +[phone] Carlos Joyner MD Unavailable +[phone] Ang Slade MD Unavailable +[phone] Lakshmi Wilhelm-C Unavailable +[phone] Heladio Willoughby MD Primary Care Provider +[phone] Heladio Willoughby MD Unavailable Alissa Perez PA-C Unavailable [phone] Lakshmi Wilhelm-C Unavailable +[phone] Aidee Valero PA-C Unavailable +[phone] Carlos Joyner MD Unavailable +[phone] Jadon Floyd MD Unavailable +[phone] Cayden Bejarano MD Unavailable Encounter Details Date Type Department Care Team (Late st Contact Info) Description 02/13/2024 [facility] Urology [place] [address] [facility] [address] [place] [address] Carlos Joyner MD [address] [place] [address] 127935 Social History Tobacco Use Types Packs/Day Years [...] [facility] Physical [facility] Rehabilitation Clinic [address] 3rd [place] [address] Jadon Floyd MD [address] [place] [address] 03/23/2025 12:45 PM CDT Appointment [facility] [address] [facility] [facility] [address] [place] [address] [place] [address] [place] [address] 03/23/2025 1:30 PM CDT Hospital Encounter [facility] [address] [facility] [facility] [address] [place] [address] [place] [address] [place] [address] 03/25/2025 10:20 AM CDT Virtual Visit [facility] Sports [facility] [address] [place] [address] [address] [place] [address] [place] [address] [place] [address] 04/04/2025 12:00 PM WELFARE AIDE Office Visit [facility] Sleep [facility] [address] [place] [phone] Sugey Mccoy, ENGRAVER ORNAMENTAL DESIGN [address] [address] 05/30/2025 10:20 AM WELFARE AIDE Appointment [facility] [address] [facility] [facility] [address] [place] [address] Carlos Joyner MD [address] [place] [address] 451795 05/31/2025 2:00 PM WELFARE AIDE Virtual Visit [facility] Urology Clinic [address]th [place] [address] Carlos Joyner MD 909 [place] [address] 07/25/2025 11:00 AM WELFARE AIDE Office Visit [facility] [address] [place] [phone] [place] [address] [address] [place], [place] 2578568 documented as of this encounter Visit Diagnoses Not on filedocumented in this encounter Care Teams Cartographic Aide Relationship Specialty [place] [address] [address] [place], [place] [phone] PCP - General 03/05/23 Carlos Joyner MD [address] [place] [address] 95014 Urology 12/09/19 Jadon Murray MD [facility] [address] [address] Referring Physician Pediatric Surgery 12/09/19 Maru Villagomez, OTILIO Registered Nurse 12/10/19 Ang Slade MD [address] [place] [address] 93[address] Urology 04/24/20 Carlos Joyner MD [address] [place] [address] 97077 Assigned Surgical Provider 12/24/20 Ang Slade MD [address] [place] [address] 91312 Urology 12/18/22 Lakshmi Wilhelm PA-C [address] [place] [address] 23578 Physician Postal Worker Urology 02/03/23 [place] [address] [place] [address] Assigned PCP 02/06/23 Alissa Perez PA-C [address] [place] [address] 27508 Physician Postal Worker Surgery 09/04/23 Lakshmi Wilhelm PA-C [address] [place] [address] 79483 Physician Postal Worker Urology 09/16/23 Aidee Valero PA-C [address] [place] [address] 19979 Assigned Musculoskeletal Provider 04/17/24 02/14/25 Carlos Joyner MD [address] [place] [address] 72124 Urology 01/26/25 Jadon Floyd MD [address] [place] [address] 464885 Physician Physical Medicine and Rehabilitation 01/31/25 [place] [address] [place] [address] Assigned Musculoskeletal Provider 02/15/25 Tanisha Marlow 4120 [facility] [address] 03/30/24 documented as of this encounter
--- OUTSIDE RECORDS SUMMARY | 2025-03-01 02:59 | XMS_ITS | Encounter Summary ---
Author Organization [facility] Address [address] [place] [address] 03270 Care Team Providers Care Healthcare Market Consultant Name Role Phone Carlos Joyner MD Unavailable +[phone] Jadon Murray MD Unavailable +[phone] Maru Villagomez RN Unavailable Unavailable Ignacia Duran MD Primary Care Provider [phone] Ang Slade MD Unavailable +[phone] Carlos Joyner MD Unavailable +[phone] Annalise Orta PA-C Unavailable +[phone] Ang Slade MD Unavailable +[phone] Lakshmi Wilhelm-C Unavailable +[phone] Heladio Willoughby MD Primary Care Provider [phone] Heladio Willoughby MD Unavailable Alissa Perez PA-C Unavailable [phone] LaLakshmi morales-C Unavailable +[phone] Aidee Valero PA-C Unavailable +[phone] Carlos Joyner MD Unavailable +[phone] Jadon Floyd MD Unavailable [phone] Cayden Bejarano MD Unavailable Encounter Details Date Type Department Care Team (Late st Contact Info) Description 06/19/[address] [facility] Urology Clinic [address] 4th [place] [phone] Jenna Mcfadden RN Social History Tobacco Use [...] COVID-19? No / Unsure 06/19/2021 11:16 AM HOUSEHOLD APPLIANCE REPAIRER documented as of this encounter Plan of Treatment Upcoming Encounters Date Type Department Care Team ([facility] Contact Info) Description 03/03/2025 9:00 AM CDT Office [facility] Physical Medicine and Rehabilitation Clinic [address]rd [place] [phone] Jadon Floyd MD [address] [place] [address] 03/23/2025 12:45 PM CDT Appointment [facility] [address] [place] [address] [place] [phone] [place] [address] [place] [address] 03/23/2025 1:30 PM CDT Hospital Encounter [facility] [address]87 [facility] [address] [place] [address] [place] [address] [facility] [address] [place] [address] 03/25/2025 10:20 AM CDT Virtual Visit [facility] Medicine [facility] [place] [address] [place] [address] [address] [place] [address] [place] [address] NANCY 300 [place] [address] 04/04/2025 12:00 PM HOUSEHOLD APPLIANCE REPAIRER Office Visit [facility] [place] [address] [place] [phone] Sugey Mccoy, SUEDE CLEANER [facility] 606 [facility] [address] [place] [address] 05/30/2025 10:20 AM HOUSEHOLD APPLIANCE REPAIRER Appointment [facility] [address]6953 [facility] [address] [place] [address] Carlos Joyner MD [address] [place] [address] 281405 05/31/2025 2:00 PM HOUSEHOLD APPLIANCE REPAIRER Virtual Visit [facility] Urology Clinic [place] 909 [facility] 4th [place] [phone] Carlos Joyner MD [address] [place] [address] 342525 07/25/2025 11:00 AM HOUSEHOLD APPLIANCE REPAIRER Office Visit [facility] [address] [place] [address] [place] [address] [place] [address] documented as of this encounter Visit Diagnoses Not on filedocumented in this encounter Additional Health Concerns Infection Onset Date Last Indicated Resolved Time MRSA Comment:Added from external infection. Pt has had Staph infections but never MRSA from Care everywhere chart review. Removing MRSA 9.14.23 06/17/2019 02/06/2023 9:41 AM C DT documented as of this encounter Care Teams Healthcare Market Consultant Relationship Specialty Start Date End Date Ignacia Duran MD PCP - General Pediatrics 01/20/20 03/04/23 [place] [address] [facility] [place] [address] PCP - General 03/05/23 Carlos Joyner MD [address] [place] [address] 73757 Urology 12/09/19 Jadon Murray MD [facility] 2530 [facility] 550 [place] [address] Referring Physician Pediatric Surgery 12/09/19 Maru Villagomez, RN Registered Nurse 12/10/19 Ang Slade MD [address] 813345 Urology 04/24/20 Carlos Joyner MD [address] [place] [address] 520865 Assigned Surgical Provider 12/24/20 Annalise Orta PA-C 5200 [place] [address] Assigned Cancer Care Provider 05/13/21 11/01/22 Ang Slade MD [address] [address] Urology 12/18/22 Lakshmi Wilhelm PA-C [address] [place] [address] 87656 Physician Construction Site Manager Urology 02/03/23 [place] [address] [place] [address] Assigned PCP 02/06/23 Alissa Perez PA-C [address] [place] [address] 8[address]58 Physician Construction Site Manager Surgery 09/04/23 Lakshmi Wilhelm PA-C [address] [place] [address] 21593 Physician Construction Site Manager Urology 09/16/23 Aidee Valero PA-C [address] [place] [address]79[address] Assigned Musculoskeletal Provider 04/17/24 02/14/25 Carlos Joyner MD [address] [place] [address]123 Urology 01/26/25 Jadon Floyd MD [address] [place] [address] 39627 Physician Physical Medicine and Rehabilitation 01/31/25 [place] [address] [place] [address] Assigned Musculoskeletal Provider 02/15/25 Tanisha Marlow 4120 [facility] [address] 03/30/24 documented as of this encounter
--- OUTSIDE RECORDS SUMMARY | 2025-03-01 02:59 | XMS_ITS | Encounter Summary ---
Author Organization [facility] Address [address] [place] [address] Care Team Providers Care Title Closer Name Role Phone Carlos Joyner MD Unavailable [phone] Jadon Murray MD Unavailable [phone] Maru Villagomez RN Unavailable Unavailable Ang Slade MD Unavailable +[phone] Carlos Joyner MD Unavailable +[phone] Ang Slade MD Unavailable [phone] Lakshmi WilhelmC Unavailable +[phone] Heladio Willoughby MD Primary Care Provider [phone] Heladio Willoughby MD Unavailable Alissa Perez PA-C Unavailable [phone] Lakshmi Wilhelm PA-C Unavailable +[phone] Aidee Valero-C Unavailable +[phone] Carlos Joyner MD Unavailable [phone] Encounter Details Date Type Department Care Team [...] Date Recorded PHQ-2 Score 0 09/13/2024 [facility] - [facility] [...] [facility] Physical Medicine and Rehabilitation Clinic [address] [phone] Jadon Floyd MD [address] [place] [address] 383825 03/23/2025 12:45 PM CDT Appointment [facility] [address] [place] [address] Cayden Bejarano [place] [address] [place] [address] 03/23/2025 1:30 PM CDT Hospital Encounter [facility] [address] [place] [address] [place] [address] [place] [address] 03/25/2025 10:20 AM CDT Virtual Visit [facility] Sports Medicine [facility] [place] [address] [place], [place] [address] [place] [address] Cayden Bejarano [place] [address] [place] [address] 04/04/2025 12:00 PM PLUMBING INSTALLER Office Visit [facility] [place] [address] [place] [phone] Darius [place] Elder, [facility] [address] [place], [place] [address]E [address] [place] [address] 05/30/2025 10:20 AM PLUMBING INSTALLER Appointment [facility] 07959 [facility] [address] [place] [phone] Carlos Joyner MD [address] [place] [address] 54909455 05/31/2025 2:00 PM PLUMBING INSTALLER Virtual Visit [facility] Urology Clinic [address] 4th [place] [phone] Carlos Joyner MD [address] [place] [address] 699535 07/25/2025 11:00 AM PLUMBING INSTALLER Office Visit [facility] [address] [place] [address] [place] [address] [place] [address] documented as of this encounter Visit Diagnoses Not on filedocumented in this encounter Care Teams Title Closer Relationship Specialty Start Date End Date Heladio [place] [address] [place] [address] PCP - General 03/05/23 Carlos Joyner MD [address] [place] [address] 050555 Urology 12/09/19 Jadon Murray MD [facility] 2530 [facility] 550 [place] [address] Referring Physician Pediatric Surgery 12/09/19 Maru Villagomez, RN Registered Nurse 12/10/19 Ang Slade MD 420 [facility] 394 [place], [place] 510525 Urology 04/24/20 Carlos Joyner MD [address] [place] [address] 922835 Assigned Surgical Provider 12/24/20 Ang Slade MD [address] [place] [address] 394 [place], [place] 572575 Urology 12/18/22 Lakshmi Wilhelm PA-C [address] [place] [address] 636415 Physician Salt Miner Urology 02/03/23 [place] [address] [place] [address] Assigned PCP 02/06/23 Alissa Perez PA-C [address] [place] [address] 057955 Physician Salt Miner Surgery 09/04/23 Lakshmi Wilhelm PA-C [address] [place] [address] 002285 Physician Salt Miner Urology 09/16/23 Aidee Valero PA-C 909 [place] [address] Assigned Musculoskeletal Provider 04/17/24 02/14/25 Carlos Joyner MD 9 [place], [place] 011115 Urology 01/26/25 Tanisha Marlow 4120 [facility] [address] 03/30/24 documented as of this encounter
--- OUTSIDE RECORDS SUMMARY | 2025-03-01 02:59 | XMS_ITS | Encounter Summary ---
Author Organization [facility] Address [address] [place] [address] Care Team Providers Care C Wpf Developer Name Role Phone Carlos Joyner MD Unavailable [phone] Jadon Murray MD Unavailable +[phone] Maru Villagomez RN Unavailable Unavailable Ang Slade MD Unavailable +[phone] Carlos Joyner MD Unavailable +[phone] Ang Slade MD Unavailable +[phone] Lakshmi Wilhelm-C Unavailable +[phone] Heladio Willoughby MD Primary Care Provider [phone] Heladio Willoughby MD Unavailable Alissa Perez PA-C Unavailable [phone] Lakshmi Wilhelm-C Unavailable [phone] Aidee Valero PA-C Unavailable +[phone] Carlos Joyner MD Unavailable +[phone] Jadon Floyd MD Unavailable +[phone] aCyden Bejarano MD Unavailable Encounter Details Date Type Department Care Team (Late st Contact Info) Description 06/25/2023 [facility] Urology [place] [address] [facility] 4th [place] [address] Carlos Joyner MD [address] [place] [address] 725415 Social History Tobacco Use Types Packs/Day Years [...] Center Physical Medicine and Rehabilitation Clinic [address]rd [place] [address] Jadon Floyd MD [address] [place] [address] 03/23/2025 12:45 PM CDT Appointment [facility] [address]80 [facility] [address] [place] [address] [place] [address] [place] [address] 03/23/2025 1:30 PM CDT Hospital Encounter [facility] 98878 [facility] [address] [place] [address] [place] [address] [place] [address] 03/25/2025 10:20 AM CDT Virtual Visit [facility] Sports Medicine [facility] [address] [place] [address] [address] [place] [address] [place] [address] [place] [address] 04/04/2025 12:00 PM EVENT SPECIALIST FOOD DEMONSTRATOR Office Visit [facility] Sleep [facility] [address] [place] [phone] Sugey Mccoy, MINI SHIFTER [address] [address] 05/30/2025 10:20 AM EVENT SPECIALIST FOOD DEMONSTRATOR Appointment [facility] [address]649 [facility] [address] [place] [address] Carlos Joyner MD [address] [place] [address] 985195 05/31/2025 2:00 PM EVENT SPECIALIST FOOD DEMONSTRATOR Virtual Visit [facility] Urology Clinic [address] [place] [address] Carlos Joyner MD 909 [place] [address] 07/25/2025 11:00 AM EVENT SPECIALIST FOOD DEMONSTRATOR Office Visit [facility] [address] [place] [phone] [place] [address] [place] [address] [place], [place] 5641768 documented as of this encounter Visit Diagnoses Not on filedocumented in this encounter Care Teams C Wpf Developer Relationship Specialty Start [place] [address] [address] [place], [place] [phone] PCP - General 03/05/23 Carlos Joyner MD [address] [place] [address] Urology 12/09/19 Jadon Murray MD [facility] [address] [address] Referring Physician Pediatric Surgery 12/09/19 Maru Villagomez, OTILIO Registered Nurse 12/10/19 Ang Slade MD [address] [place] [address] 24[address] Urology 04/24/20 Carlos Joyner MD [address] [place] [address] 63631 Assigned Surgical Provider 12/24/20 Ang Slade MD [address] [place] [address] 27358 Urology 12/18/22 Lakshmi Wilhelm PA-C [address] [place] [address] 73054 Physician Crystalizer Tender Urology 02/03/23 [place] [address] [place] [address] Assigned PCP 02/06/23 Alissa Perez PA-C [address] [place] [address] 99358 Physician Crystalizer Tender Surgery 09/04/23 Lakshmi Wilhelm PA-C [address] [place] [address] 45167 Physician Crystalizer Tender Urology 09/16/23 Aidee Valero PA-C [address] [place] [address] 32797 Assigned Musculoskeletal Provider 04/17/24 02/14/25 Carlos Joyner MD [address] [place] [address] Urology 01/26/25 Jadon Floyd MD [address] [place] [address] 735055 Physician Physical Medicine and Rehabilitation 01/31/25 [place] [address] [place] [address] Assigned Musculoskeletal Provider 02/15/25 Tanisha Marlow 4120 [facility] [address] 03/30/24 documented as of this encounter
--- OUTSIDE RECORDS SUMMARY | 2025-03-01 02:59 | XMS_ITS | Encounter Summary ---
Author Organization [facility] Address [address] [place] [address] Care Team Providers Care Cytology Technologist Name Role Phone Carlos Joyner MD Unavailable [phone] Jadon Murray MD Unavailable +[phone] Maru Villagomez RN Unavailable Unavailable Ang Slade MD Unavailable +[phone] Carlos Joyner MD Unavailable [phone] Ang Slade MD Unavailable +[phone] Lakshmi WilhelmC Unavailable +[phone] Heladio Willoughby MD Primary Care Provider [phone] Heladio Willoughby MD Unavailable Alissa Perez PA-C Unavailable [phone] Lakshmi Wilhelm PA-C Unavailable +[phone] Aidee Valero-C Unavailable +[phone] Carlos Joyner MD Unavailable +[phone] Encounter Details Date Type Department Care Team [...] [facility] [address] [phone] Jadon Floyd MD [address] [place] [address] 470345 03/23/2025 12:45 PM CDT Appointment [facility] [address] [place] [address] Cayden [place]jar[place] [address] [place] [address] 03/23/2025 1:30 PM CDT Hospital Encounter [facility] [address] [place] [address]15 [place] [address] [place] [address] 03/25/2025 10:20 AM CDT Virtual Visit [facility] [place] [address] [place], [place] [address] [place] [address] Cayden [place]jar[place] [address] [place] [address] 04/04/2025 12:00 PM MANAGER OF RADIOLOGY Office Visit [facility] [place] [address] [place] [phone] Darius Elvirginia Elder, NESTOR [facility] [address] [place], [place] [address]E [address] [place] [address] 05/30/2025 10:20 AM MANAGER OF RADIOLOGY Appointment M [facility] [address] [facility] [address] [place] [address] Carlos Joyner MD [address] [place] [address] [id number] 05/31/2025 2:00 PM MANAGER OF RADIOLOGY Virtual Visit [facility] [address] 4th [place] [address]00 Carlos Joyner MD [address] [place] [address] 688225 07/25/2025 11:00 AM MANAGER OF RADIOLOGY Office Visit [facility] [address] [place] [address] [place] [address] [place] [address] documented as of this encounter Visit Diagnoses Not on filedocumented in this encounter Care Teams Cytology Technologist Relationship Specialty Start Date [place] [id number] [place] [address] PCP - General 03/05/23 Carlos Joyner MD [address] [place] [address] 433075 Urology 12/09/19 Jadon Murray MD [facility] 2530 [facility] 550 [place] [address] Referring Physician Pediatric Surgery 12/09/19 Maru Villagomez, RN Registered Nurse 12/10/19 Ang Slade MD 420 [facility] 394 [place], [place] 225785 Urology 04/24/20 Carlos Joyner MD [address] [place] [address] 244195 Assigned Surgical Provider 12/24/20 Ang Slade MD [address] [place] [address] 394 [place], [place] 713655 Urology 12/18/22 Lakshmi Wilhelm PA-C [address] [place] [address] 674555 Physician Mechanical Engineer Urology 02/03/23 [place] [address] [place] [address] Assigned PCP 02/06/23 Alissa Perez PA-C [address] [place] [address] 531505 Physician Mechanical Engineer Surgery 09/04/23 Lakshmi Wilhelm PA-C [address] [place] [address] 271675 Physician Mechanical Engineer Urology 09/16/23 Aidee Valero PA-C 909 [place] [address] Assigned Musculoskeletal Provider 04/17/24 02/14/25 Carlos Joyner MD 9 [place], [place] 726215 Urology 01/26/25 Tanisha Marlow 4120 [facility] [address] 03/30/24 documented as of this encounter
--- OUTSIDE RECORDS SUMMARY | 2025-03-01 02:59 | XMS_ITS | Encounter Summary ---
Author Organization [facility] Address [address] [place] [address] Care Team Providers Care Surgical Assistant Name Role Phone Carlos Joyner MD Unavailable [phone] Jadon Murray MD Unavailable [phone] Maru Villagomez RN Unavailable Unavailable Ignacia Duran MD Primary Care Provider [phone] Ang Slade MD Unavailable +[phone] Carlos Joyner MD Unavailable +[phone] Annalise Orta PA-C Unavailable +[phone] Ang Slade MD Unavailable +[phone] Lakshmi Wilhelm-C Unavailable +[phone] Heladio Willoughby MD Primary Care Provider [phone] Heladio Willoughby MD Unavailable Alissa Perez PA-C Unavailable [phone] LaLakshmi morales-C Unavailable +[phone] Aidee Valero PA-C Unavailable +[phone] Carlos Joyner MD Unavailable +[phone] Jadon Floyd MD Unavailable [phone] Cayden Bejarano MD Unavailable Encounter Details Date Type Department Care Team (Late st Contact Info) Description 09/17/2021 MyC Medical Advice [facility] [address] 4th [place] [phone] Carlos Joyner MD [address] [place] [address]25 Social History Tobacco Use Types Packs/Day Years [...] 03/03/2025 9:00 AM CDT Office Visit [facility] [address] 3rd [place] [address] Jadon Floyd MD [address] [place] [address] 03/23/2025 12:45 PM CDT Appointment [facility] [address] [place] [address] Cayden Bejarano MD [address] [place] [address] [address] [place] [address] 03/23/2025 1:30 PM CDT Hospital Encounter [facility] [address] [place] [phone] Cayden Bejarano MD [address] [place] [address] [address] [place] [address] 03/25/2025 10:20 AM CDT Virtual Visit [facility] [place] [address] [place] [address] Cayden Bejarano MD [address] [place] [address] [address] [place] [address] 04/04/2025 12:00 PM DIVINE HEALER Office Visit [facility] [place] [address] [facility] [place] [address] Sugey Mccoy APRN [facility] [address] [place] [address] [address] [place], [place] 771214 05/30/2025 10:20 AM DIVINE HEALER Appointment [facility] [address] [place] [address] Carlos Joyner MD [address] [place] [address] 393555 05/31/2025 2:00 PM DIVINE HEALER Virtual Visit [facility] [address] 4th [place] [address] Carlos Joyner MD [address] [place] [address] 959385 07/25/2025 11:00 AM DIVINE HEALER Office Visit [address] [address] [place] [address] [place] [address] documented as of this encounter Visit Diagnoses Not on filedocumented in this encounter Additional Health Concerns Infection Onset Date Last Indicated Resolved Time MRSA Comment:Added from external infection. Pt has had Staph infections but never MRSA from Care everywhere chart review. Removing MRSA 02.06.23 06/17/2019 02/06/2023 9:41 AM C DT documented as of this encounter Care Teams Surgical Assistant Relationship Specialty Start Date End Date Ignacia Duran MD PCP - General Pediatrics 01/20/20 03/04/23 [place] [address] [place] [address] PCP - General 03/05/23 Carlos Joyner MD [address] [place] [address] 840385 Urology 12/09/19 Jadon Murray MD [facility] 2530 [facility] [address]ANCY 550 [place] [address] Referring Physician Pediatric Surgery 12/09/19 Maru Villagomez, RN Registered Nurse 12/10/19 Ang Slade MD 420 [facility] 394 [place], [place] 376785 Urology 04/24/20 Carlos Joyner MD [address] [place] [address] 325225 Assigned Surgical Provider 12/24/20 Annalise Orta PA-C 5200 [place] [address] Assigned Cancer Care Provider 05/13/21 11/01/22 Ang Slade MD [address] [place] [address] 758785 Urology 12/18/22 Lakshmi Wilhelm PA-C [address] [place] [address]207 Physician Office Service Coordinator Urology 02/03/23 [place] [address] [place] [address] Assigned PCP 02/06/23 Alissa Perez PA-C [address] [place] [address] 500615 Physician Office Service Coordinator Surgery 09/04/23 Lakshmi Wilhelm PA-C [address] [place] [address] 496535 Physician Office Service Coordinator Urology 09/16/23 Aidee Valero PA-C [address] [place] [address] 34475 Assigned Musculoskeletal Provider 04/17/24 02/14/25 Carlos Joyner MD [address] [place] [address] 015505 Urology 01/26/25 Jadon Floyd MD [address] [place] [address] Physician Physical Medicine and Rehabilitation 01/31/25 [place] [address] [place] [address] Assigned Musculoskeletal Provider 02/15/25 Tanisha Marlow 4120 [place] [address] 03/30/24 documented as of this encounter
--- OUTSIDE RECORDS SUMMARY | 2025-03-01 02:59 | XMS_ITS | Encounter Summary ---
Author Organization [facility] Address [address] [place] [address] Care Team Providers Care Bowling Ball Molder Name Role Phone Carlos Joyner MD Unavailable [phone] Jadon Murray MD Unavailable [phone] Maru Villagomez RN Unavailable Unavailable Ang Slade MD Unavailable +[phone] Carlos Joyner MD Unavailable [phone] Ang Slade MD Unavailable [phone] Lakshmi Wilhelm-C Unavailable [phone] Heladio Willoughby MD Primary Care Provider [phone] Heladio Willoughby MD Unavailable Alissa Perez PA-C Unavailable [phone] Lakshmi Wilhelm-C Unavailable [phone] Aidee Valero PA-C Unavailable [phone] Carlos Joyner MD Unavailable [phone] Encounter Details Date Type Department Care Team (Late st Contact Info) Description 01/28/2025 [facility] [address] 3rd [place] [address] Unknown, Doctor, Social History Tobacco [...] Recorded PHQ-2 Score 0 09/13/2024 [facility] of Occupat ional Health - Occupational Stress [...] Return date: next available Specialty phone number: [phone] Additional appointment(s) needed: NA Additonal Notes: documented in this encounter Plan of Treatment Upcoming Encounters Date Type Department Care Team (Late st Contact Info) Description 03/03/2025 9:00 AM CDT Office Visit [facility] [address] [address] Jadon Floyd MD [address] [place] [address] [phone] 03/23/2025 12:45 PM CDT Appointment [facility] [address] [facility] [address] [place] [address] [place] [address] [place] [address] 03/23/2025 1:30 PM CDT Hospital Encounter [facility] [address] [facility] [address] [place] [address] [place] [address] [place] [address] 03/25/2025 10:20 AM CDT Virtual Visit [facility] [address] [place] [address] [place] [address] [place] [address] 04/04/2025 12:00 PM EXTENSION WORK INSTRUCTOR Office Visit [facility] Sleep [address] [phone] Sugey Mccoy, PARKING CONTROL OFFICER [address] [place] [address] 05/30/2025 10:20 AM EXTENSION WORK INSTRUCTOR Appointment [facility] [address] [facility] [address] [place] [address] Carlos Joyner MD [address] [place] [address] 05/31/2025 2:00 PM EXTENSION WORK INSTRUCTOR Virtual Visit [facility] Urology [address] 4th [place] [address] Carlos Joyner MD [address] [place] [address] 07/25/2025 11:00 AM EXTENSION WORK INSTRUCTOR Office Visit [address] [address] [place] [address] [place] [address] documented as of this encounter Visit Diagnoses Not on filedocumented in this encounter Care Teams Bowling Ball Molder Relationship Specialty Start [place] [address] [address] [place] [phone] PCP - General 03/05/23 Carols Joyner MD [address] [place] [address] 423545 Urology 12/09/19 Jadon Murray MD [facility] [address] [phone] Referring Physician Pediatric Surgery 12/09/19 Maru Villagomez, RN Registered Nurse 12/10/19 Ang Slade MD [address] [place] [address] 822975 Urology 04/24/20 Carlos Joyner MD [address] [place] [address] 305335 Assigned Surgical Provider 12/24/20 Ang Slade MD [address] [place] [address] Urology 12/18/22 Lakshmi Wilhelm PA-C [address] [place] [address] 409205 Physician Restorer [employer] Urology 02/03/23 [place] [address] [place] [address] Assigned PCP 02/06/23 Alissa Perez PA-C [address] [place] [address] 279945 Physician Restorer [employer] Surgery 09/04/23 Lakshmi Wilhelm PA-C [address] [place] [address] 691495 Physician Restorer [employer] Urology 09/16/23 Aidee Valero PA-C [address] [place] [address] 216655 Assigned Musculoskeletal Provider 04/17/24 02/14/25 Carlos Joyner MD [address] [place] [address] 582805 Urology 01/26/25 Tanisha Marlwo 4120 [facility] [address] 03/30/24 documented as of this encounter
--- OUTSIDE RECORDS SUMMARY | 2025-03-01 02:59 | XMS_ITS | Encounter Summary ---
Author Organization [facility] Address [address] [place] [address] Care Team Providers Care Lot Worker Name Role Phone Carlos Joyner MD Unavailable [phone] Jadon Murray MD Unavailable +[phone] Maru Villagomez RN Unavailable Unavailable Ignacia Duran MD Primary Care Provider [phone] Ang Slade MD Unavailable +[phone] Carlos Joyner MD Unavailable +[phone] Annalise Orta PA-C Unavailable +[phone] Ang Slade MD Unavailable [phone] Lakshmi Wilhelm-C Unavailable [phone] Heladio Willoughby MD Primary Care Provider [phone] Heladio Willoughby MD Unavailable Alissa Perez PA-C Unavailable [phone] LaLakshmi morales-C Unavailable +[phone] Aidee Valero PA-C Unavailable +[phone] Carlos Joyner MD Unavailable +[phone] Jadon Floyd MD Unavailable [phone] Cayden Bejarano MD Unavailable Encounter Details Date Type Department Care Team (Late st Contact Info) Description 07/31/2021 MyC Medical Advice [facility] Preoperative Assessment Center [address] 5th [place] [address] Makenzie Drummond RN Social History Tobacco Use [...] [facility] [address] 3rd [place] [address] Jadon Floyd MD [address] [place] [address] 03/23/2025 12:45 PM CDT Appointment [facility] [address] [facility] [address] [place] [address] Cayden Bejarano [place] [id number] [place] [address] [address] [place] [address] 03/23/2025 1:30 PM CDT Hospital Encounter [facility] [address] [place] [address] [place] [address] [facility] [address] [place] [address] 03/25/2025 10:20 AM CDT Virtual Visit [facility] [place] [address] [place], [place] [address] [place] [address] Cayden Bejarano MD [address] [place] [address] [address] [place] [address] 04/04/2025 12:00 PM MOLD CAPPER Office Visit [facility] [place] [address] [place] [address] Sugey Mccoy, NESTOR MOSQUERA [address] [place], [place] [address]E [address] [place] [address] 05/30/2025 10:20 AM MOLD CAPPER Appointment [facility] [address] [place] [address] Carlos Joyner MD [address] [place] [address] 05/31/2025 2:00 PM MOLD CAPPER Virtual Visit [facility]rology Clinic [place] 9[address] [facility] 4th [place] [address] Carlos Joyner MD [address] [place] [address] [phone] 07/25/2025 11:00 AM MOLD CAPPER Office Visit [address] [address] Heladio Wliloughby MD [address] [place] [address] documented as of this encounter Visit Diagnoses Not on filedocumented in this encounter Additional Health Concerns Infection Onset Date Last Indicated Resolved Time MRSA Comment:Added from external infection. Pt has had Staph infections but never MRSA from Care everywhere chart review. Removing MRSA .14.23 06/17/2019 02/06/2023 9:41 AM C DT documented as of this encounter Care Teams Lot Worker Relationship Specialty Start Date End Date Ignacia Duran MD PCP - General Pediatrics 01/20/20 03/04/23 [place] [address] [facility] [place] [address] PCP - General 03/05/23 Carlos Joyner MD [address] [place] [address] Urology 12/09/19 Jadon Murray MD [facility] [address] [address] Referring Physician Pediatric Surgery 12/09/19 Maru Villagomez, OTILIO Registered Nurse 12/10/19 Ang Slade MD [address] [place] [address] Urology 04/24/20 Carlos Joyner MD [address] [place] [address] 89966 Assigned Surgical Provider 12/24/20 Annalise Orta PA-C 5200 [place] [address] Assigned Cancer Care Provider 05/13/21 11/01/22 Ang Slade MD [address] [place] [address] [phone] Urology 12/18/22 Lakshmi Wilhelm PA-C [address] [place] [address] [phone] Physician Dressed Poultry Grader Urology 02/03/23 [place] [address] [address] [place] [address] Assigned PCP 02/06/23 Alissa Perez PA-C [address] [place] [address] 680355 Physician Dressed Poultry Grader Surgery 09/04/23 Lakshmi Wilhelm PA-C [address] [place] [address] 611155 Physician Dressed Poultry Grader Urology 09/16/23 Aidee Valero PA-C [address] [place] [address] 765425 Assigned Musculoskeletal Provider 04/17/24 02/14/25 Carlos Joyner MD [address] [place] [address] 290675 Urology 01/26/25 Jadon Floyd MD [address] [place] [address] [phone] Physician Physical Medicine and Rehabilitation 01/31/25 [place] [address] [place] [address] Assigned Musculoskeletal Provider 02/15/25 Tanisha Marlow 4120 [facility] [address] 03/30/24 documented as of this encounter
--- OUTSIDE RECORDS SUMMARY | 2025-03-01 02:59 | XMS_ITS | Encounter Summary ---
Author Organization [place] Address [address] [place] [address] Care Team Providers Care Derrickman Helper Name Role Phone Carlos Joyner MD Unavailable [phone] Jadon Murray MD Unavailable +[phone] Maru Villagomez RN Unavailable Unavailable Ignacia Duran MD Primary Care Provider [phone] Ang Slade MD Unavailable +[phone] Carlos Joyner MD Unavailable +[phone] Annalise Orta PA-C Unavailable +[phone] Ang Slade MD Unavailable +[phone] Lakshmi Wilhelm-C Unavailable +[phone] Heladio Willoughby MD Primary Care Provider +[phone] Heladio Willoughby MD Unavailable Alissa Perez PA-C Unavailable [phone] LaLakshmi morales-C Unavailable +[phone] Aidee Valero PA-C Unavailable +[phone] Carlos Joyner MD Unavailable +[phone] Jadon Floyd MD Unavailable [phone] Cayden Bejarano MD Unavailable Encounter Details Date Type Department Care Team (Late st Contact Info) Description 07/19/2021 MyC Medical Advice [facility] [address] [place] [phone] Shyann Rehman Social History Tobacco Use Types [...] COVID-19? No / Unsure 06/19/2021 11:16 AM HEAD OF SALES documented as of this encounter Plan of Treatment Upcoming Encounters Date Type Department Care Team (Late Contact Info) Description 03/03/2025 9:00 AM CDT Office Visit [facility] [address] [phone] Jadon Floyd MD [address] [place] [address] 03/23/2025 12:[address] [facility] [address] [place] [address] [address] [place] [address] [place] [address] [facility] [address] [place] [address] 03/23/2025 1:30 PM CDT Hospital Encounter [facility] [address] [facility] [address] [place] [address] [place] [address] [facility] [address] [place] [address] 03/25/2025 10:20 AM CDT Virtual Visit [facility] [place] [address] [place] [address] [address] [place] [address] [place] [address] NANCY [address] [place] [address] 04/04/2025 12:00 PM HEAD OF SALES Office Visit M [facility] [place] [address] [place] [address] Sugey Mccoy, OBGYN SPECIALIST [facility] [address] [place], [place] [address]E [address] [place] [address] 05/30/2025 10:20 AM HEAD OF SALES Appointment [facility] [address] [facility] [address] [place] [address] Carlos Joyner MD [address] [place] [address] 740355 05/31/2025 2:00 PM HEAD OF SALES Virtual Visit [facility] [place] 909 [facility] 4th [place] [phone] Carlos Joyner MD [address] [place] [address] 273535 07/25/2025 11:00 AM HEAD OF SALES Office Visit [facility] [address] [place] [address] [place] [address] [place] [address] documented as of this encounter Visit Diagnoses Not on filedocumented in this encounter Additional Health Concerns Infection Onset Date Last Indicated Resolved Time MRSA Comment:Added from external infection. Pt has had Staph infections but never MRSA from Care everywhere chart review. Removing MRSA 9.14.23 06/17/2019 02/06/2023 9:41 AM C TANG documented as of this encounter Care Teams Derrickman Helper Relationship Specialty Start Date End Date Ignacia Duran MD PCP - General Pediatrics 01/20/20 03/04/23 [place] [address] [facility] [place] [address] PCP - General 03/05/23 Carlos Joyner MD 9 [place] [address] Urology 12/09/19 Jadon Murray MD [facility] 2530 [facility] 550 [place] [address] Referring Physician Pediatric Surgery 12/09/19 Maru Villagomez, RN Registered Nurse 12/10/19 Ang Slade MD [address] 387735 Urology 04/24/20 Carlos Joyner MD [address] [place] [address] 711825 Assigned Surgical Provider 12/24/20 Annalise Orta PA-C [address] [place] [address] Assigned Cancer Care Provider 05/13/21 11/01/22 Ang Slade MD [address] [address] Urology 12/18/22 Lakshmi Wilhelm PA-C [address] [place] [address] Physician Geothermal Powerplant Mechanic Urology 02/03/23 [place] [address] [place] [address] Assigned PCP 02/06/23 Alissa Perez PA-C [address] [place] [address] Physician Geothermal Powerplant Mechanic Surgery 09/04/23 Lakshmi Wilhelm PA-C [address] [place] [address] Physician Geothermal Powerplant Mechanic Urology 09/16/23 Aidee Valero PA-C [address] [place] [address] Assigned Musculoskeletal Provider 04/17/24 02/14/25 Carlos Joyner MD [address] [place] [address] Urology 01/26/25 Jadon Floyd MD [address] [place] [address] Physician Physical Medicine and Rehabilitation 01/31/25 [place] [address] [place] [address] Assigned Musculoskeletal Provider 02/15/25 Tanisha Marlow 4120 [facility] [address] 03/30/24 documented as of this encounter
--- OUTSIDE RECORDS SUMMARY | 2025-03-01 02:59 | XMS_ITS | Encounter Summary ---
Author Organization [place] Address [address] [place] [address] Care Team Providers Care [place] Boatman Name Role Phone Carlos Joyner MD Unavailable [phone] Jadon Murray MD Unavailable [phone] Maru Villagomez RN Unavailable Unavailable Ang Slade MD Unavailable +[phone] Carlos Joyner MD Unavailable +[phone] Ang Slade MD Unavailable [phone] Lakshmi WilhelmC Unavailable +[phone] Heladio Willoughby MD Primary Care Provider [phone] Heladio Willoughby MD Unavailable Alissa Perez PA-C Unavailable [phone] Lakshmi Wilhelm PA-C Unavailable +[phone] Aidee Valero-C Unavailable +[phone] Carlos Joyner MD Unavailable [phone] Encounter Details Date Type Department Care Team [...] Answer Date Recorded PHQ-2 Score 0 09/13/2024 [facility] [...] Center Physical Medicine and Rehabilitation Clinic [address] [phone] Jadon Floyd MD [address] [place] [address] 215985 03/23/2025 12:45 PM CDT Appointment [facility] [address] [place] [address] Cayden Bejarano [place] [address] [place] [address] 03/23/2025 1:30 PM CDT Hospital Encounter [facility] [address] [place] [address] [place] [address] [place] [address] 03/25/2025 10:20 AM CDT Virtual Visit [facility] [place] [address] [place], [place] [address] [place] [address] [place] [address] [place] [address] 04/04/2025 12:00 PM LANDSCAPE MAINTENANCE INTERNSHIP Office Visit M [facility] [place] [address] [place] [phone] Darius Elvirginia Elder, [facility] [address] [place], [place] [address]E [address] [place] [address] 05/30/2025 10:20 AM LANDSCAPE MAINTENANCE INTERNSHIP Appointment M [facility] [address] [facility] [address] [place] [address] Carlos Joyner MD [address] [place] [address] 736634[address] 05/31/2025 2:00 PM LANDSCAPE MAINTENANCE INTERNSHIP Virtual Visit [facility] U[facility] Clinic [address] 4th [place] [phone] Carlos Joyner MD [address] [place] [address] 4025[address] 07/25/2025 11:00 AM LANDSCAPE MAINTENANCE INTERNSHIP Office Visit [facility] [address] [place] [address] [place] [address] [place] [address] documented as of this encounter Visit Diagnoses Not on filedocumented in this encounter Care Teams [place] Boatman Relationship Specialty Start Date End Date [place]ad[place] [address] [place] [address] PCP - General 03/05/23 Carlos Joyner MD [address] [place] [address] 916005 Urology 12/09/19 Jadon Murray MD [facility] 2530 [facility] 550 [place] [address] Referring Physician Pediatric Surgery 12/09/19 Maru Villagomez, RN Registered Nurse 12/10/19 Ang Slade MD 420 [facility] 394 [place], [place] 340975 Urology 04/24/20 Carlos Joyner MD [address] [place] [address] 738585 Assigned Surgical Provider 12/24/20 Ang Slade MD [address] [place] [address] 394 [place], [place] 224845 Urology 12/18/22 Lakshmi Wilhelm PA-C [address] [place] [address] 827155 Physician Heat Engineering Teacher Urology 02/03/23 [place] [address] [place] [address] Assigned PCP 02/06/23 Alissa Perez PA-C [address] [place] [address] 873855 Physician Heat Engineering Teacher Surgery 09/04/23 Lakshmi Wilhelm PA-C [address] [place] [address] 990495 Physician Heat Engineering Teacher Urology 09/16/23 Aidee Valero PA-C 909 [place] [address] Assigned Musculoskeletal Provider 04/17/24 02/14/25 Carlos Joyner MD 9 [place], [place] 768745 Urology 01/26/25 Tanisha Marlow 4120 [facility] [address] 03/30/24 documented as of this encounter
--- OUTSIDE RECORDS SUMMARY | 2025-03-01 03:00 | XMS_ITS | Encounter Summary ---
Author Organization [place] Address [address] [facility] [place] [address] Care Team Providers Care Emergency Services Director Name Role Phone Carlos Joyner MD Unavailable + [phone] Jadon Murray MD Unavailable +[phone] Maru Villagomez RN Unavailable Unavailable Ang Slade MD Unavailable +[phone] Carlos Joyner MD Unavailable + [phone] Ang Slade MD Unavailable [phone] Lakshmi Wilhelm-C Unavailable +[phone] Heladio Willoughby MD Primary Care Provider [phone] Heladio Willoughby MD Unavailable Alissa Perez PA-C Unavailable [phone] Lakshmi Wilhelm-C Unavailable [phone] Aidee Valero PA-C Unavailable +[phone] Carlos Joyner MD Unavailable + [phone] Jadon Floyd MD Unavailable [phone] Cayden Bejarano MD Unavailable Encounter Details Date Type Department Care Team (Late st Contact Info) Description 03/27/2023 MyC Medical Advice [facility] PREOP/PHASE II 2450 [place] [address] Lisette Salinas, OTILIO Social History [...] in an overnight long-term, or couch-surfing.) Yes 02/26/2023 Are you worried [...] 03/03/2025 9:00 AM CDT Office Visit [facility] Physical Medicine and Rehabilitation Clinic [address] [place] [address] Jadon Floyd MD 909 [place] [address] 03/23/2025 12:45 PM CDT Appointment [facility] [address] [facility] [address] [place] [address] [place] [address] [place] [address] 03/23/2025 1:30 PM CDT Hospital Encounter [facility] 92[address] [facility] [address] [place] [address] [place]den [place]jar[place] [address] [place] [address] [address] [place] [address] 03/25/2025 10:20 AM CDT Virtual Visit [facility] [place] [address] [place] [address] [address] [place] [address] [place] [address] [place] [address] 04/04/2025 12:00 PM MANAGER GENERATION Office Visit [address] [phone] Sugey Mccoy, CENTRAL OFFICE INSTALLER [address] [address] 05/30/2025 10:20 AM MANAGER GENERATION Appointment [facility] [address] [facility] [address] [place] [address] Carlos Joyner MD 909 [place] [address] 05/31/2025 2:00 PM MANAGER GENERATION Virtual Visit [facility] [place] 909 [facility] 4th [place] [address] Carlos Joyner MD [address] [place] [address] 757505 07/25/2025 11:00 AM MANAGER GENERATION Office Visit [facility] [address] [facility] [place] [address] [place] [address] [facility] [place], [place] 5772668 documented as of this encounter Visit Diagnoses Not on filedocumented in this encounter Care Teams Emergency Services Director Relationship Specialty Start [place] [address] [address] [place], [place] [phone] PCP - General 03/05/23 Carlos Joyner MD [address] [place] [address] 738075 Urology 12/09/19 Jadon Murray MD [facility] [address] [address] Referring Physician Pediatric Surgery 12/09/19 Maru Villagomez, RN Registered Nurse 12/10/19 Ang Slade MD [address] [place] [address] 394 [place], [place] 612095 Urology 04/24/20 Carlos Joyner MD [address] [place] [address] Assigned Surgical Provider 12/24/20 Ang Slade MD [address] [place] [address] 850705 Urology 12/18/22 Lakshmi Wilhelm PA-C [address] [place] [address] 785235 Physician Aws Developer Urology 02/03/23 [place] [address] [place] [address] Assigned PCP 02/06/23 Alissa Perez PA-C [address] [place] [address] Physician Aws Developer Surgery 09/04/23 Lakshmi Wilhelm PA-C [address] [place] [address] Physician Aws Developer Urology 09/16/23 Aidee Valero PA-C [address] [place] [address] 911735 Assigned Musculoskeletal Provider 04/17/24 02/14/25 Carlos Joyner MD [address] [place] [address] 640685 Urology 01/26/25 Jadon Floyd MD [address] [place] [address] 865895 Physician Physical Medicine and Rehabilitation 01/31/25 [place] [address] [place] [address] Assigned Musculoskeletal Provider 02/15/25 Tanisha Marlow [address] [place] [address] 03/30/24 documented as of this encounter
--- OUTSIDE RECORDS SUMMARY | 2025-03-01 03:00 | XMS_ITS | Encounter Summary ---
Author Organization [place] Address [address] [place] [address] Care Team Providers Care Casing Inspector Name Role Phone Carlos Joyner MD Unavailable +[phone] Jadon Murray MD Unavailable [phone] Maru Villagomez RN Unavailable Unavailable Ignacia Duran MD Primary Care Provider [phone] Ang Slade MD Unavailable +[phone] Carlos Joyner MD Unavailable +[phone] Annalise Orta PA-C Unavailable +[phone] Ang Slade MD Unavailable +[phone] Lakshmi Wilhelm-C Unavailable +[phone] Heladio Willoughby MD Primary Care Provider [phone] Heladio Willoughby MD Unavailable Alissa Perez PA-C Unavailable [phone] LaLakshmi morales-C Unavailable +[phone] Aidee Valero PA-C Unavailable +[phone] Carlos Joyner MD Unavailable +[phone] Jadon Floyd MD Unavailable [phone] Cayden Bejarano MD Unavailable Encounter Details Date Type Department Care Team (Late st Contact Info) Description 12/18/2021 MyC Medical Advice [facility] [address]th [place] [phone] Carlos Joyner MD [address] [place] [address] Social History Tobacco Use Types Packs/Day Years [...] Description 03/03/2025 9:00 AM CDT Office Visit [facility] [address]rd [place] [address] Jadon Floyd MD [address] [place] [address] 03/23/2025 12:45 PM CDT Appointment [facility] [address] [facility] [address] [place] [address] [place] [address] [place] [address] 03/23/2025 1:30 PM CDT Hospital Encounter [facility] [address] [place] [address] [place] [address] [place] [address] [place] [address] 03/25/2025 10:20 AM CDT Virtual Visit [facility] Medicine [facility] [address] [facility] [address] [place] [address] [place] [address] [place] [address] 04/04/2025 12:00 PM HASSOCK MAKER Office Visit [facility] [place] [address] [facility] [place] [address] Sugey Mccoy APRN [facility] [address] [place] [address] [address] [place] [address] 05/30/2025 10:20 AM HASSOCK MAKER Appointment [facility] [address] [facility] [address] [place] [address] Carlos Joyner MD [address] [place] [address] 445185 05/31/2025 2:00 PM HASSOCK MAKER Virtual Visit [facility] [address] 4th [place] [address] Carlos Joyner MD [address] [place] [address] 937965 07/25/2025 11:00 AM HASSOCK MAKER Office Visit [facility] [address] [place] [address] [place] [address] [place] [address] documented as of this encounter Visit Diagnoses Not on filedocumented in this encounter Additional Health Concerns Infection Onset Date Last Indicated Resolved Time MRSA Comment:Added from external infection. Pt has had Staph infections but never MRSA from Care everywhere chart review. Removing MRSA 9.14.06/17/2019 02/06/2023 9:41 AM C DT documented as of this encounter Care Teams Casing Inspector Relationship Specialty Start Date End Date Ignacia Duran MD PCP - General Pediatrics 01/20/20 03/04/23 [place] [address] [place] [address] PCP - General 03/05/23 Carlos Joyner MD 9 [place] [address] Urology 12/09/19 Jadon Murray MD [facility] 2530 [facility] 550 [place] [address] Referring Physician Pediatric Surgery 12/09/19 Maru Villagomez, RN Registered Nurse 12/10/19 Ang Slade MD [address] [place] [address] 394 [place], [place] 085265 Urology 04/24/20 Carlos Joyner MD [address] [place] [address] 415825 Assigned Surgical Provider 12/24/20 Annalise Orta PA-C 5200 [place] [address] Assigned Cancer Care Provider 05/13/21 11/01/22 Ang Slade MD [address] [place] [address] Urology 12/18/22 Lakshmi Wilhelm PA-C [address] [place] [address] Physician Mutuel Cashier Urology 02/03/23 [place] [address] [place] [address] Assigned PCP 02/06/23 Alissa Perez PA-C [address] [place] [address] Physician Mutuel Cashier Surgery 09/04/23 Lakshmi Wilhelm PA-C [address] [place] [address] Physician Mutuel Cashier Urology 09/16/23 Aidee Valero PA-C [address] [place] [address] Assigned Musculoskeletal Provider 04/17/24 02/14/25 Carlos Joyner MD [address] [place] [address] Urology 01/26/25 Jadon Floyd MD [address] [place] [address] 344625 Physician Physical Medicine and Rehabilitation 01/31/25 [place] [address] [place], [place] 734187 Assigned Musculoskeletal Provider 02/15/25 Tanisha Marlow [address] [place] [address] 03/30/24 documented as of this encounter
--- OUTSIDE RECORDS SUMMARY | 2025-03-01 03:00 | XMS_ITS | Encounter Summary ---
Author Organization [facility] Address [address] [place] [address] Care Team Providers Care Clinical Case Manager Name Role Phone Carlos Joyner MD Unavailable +[phone] Jadon Murray MD Unavailable +[phone] Maru Villagomez RN Unavailable Unavailable Ignacia Duran MD Primary Care Provider +[phone] Ang Slade MD Unavailable +[phone] Carlos Joyner MD Unavailable +[phone] Annalise Orta PA-C Unavailable +[phone] Ang Slade MD Unavailable +[phone] Lakshmi Wilhelm-C Unavailable +[phone] Heladio Willoughby MD Primary Care Provider +[phone] Heladio Willoughby MD Unavailable Alissa Perez PA-C Unavailable [phone] LaLakshmi morales-C Unavailable +[phone] Aidee Valero PA-C Unavailable +[phone] Carlos Joyner MD Unavailable +[phone] Jadon Floyd MD Unavailable +[phone] Cayden Bejarano MD Unavailable Encounter Details Date Type Department Care Team (Late st Contact Info) Description 10/01/2021 MyC Medical Advice [facility] [address] 4th [place] [phone] Carlos Joyner MD [address] [place] [address]30 Social History Tobacco Use Types Packs/Day Years [...] Upcoming Encounters Date Type Department Care Team ([facility] Contact Info) Description 03/03/2025 9:00 AM CDT Office Visit [facility] [address] [phone] Jadon Floyd MD [address] [place] [address] 03/23/2025 12:45 PM CDT Appointment [facility] [address] [facility] [address] [place] [address] Cayden Bejarano MD [address] [place] [address] [address] [place] [address] 03/23/2025 1:30 PM CDT Hospital Encounter [facility] [address] [place] [phone] [place]den [place]jar[place] [address] [place] [address] [address] [place] [address] 03/25/2025 10:20 AM CDT [facility] [place] [address] [place] [address] [place] [address] [place] [address] 04/04/2025 12:00 PM SCHEDULE CLERK Office Visit [facility] [place] [address] [place] [phone] Sugey Mccoy APRN [facility] [address] [place], [place] [address] [place], [place] 7380[address] 05/30/2025 10:20 AM SCHEDULE CLERK Appointment [facility] [address] [facility] [address] [place] [phone] Carlos Joyner MD [address] [place] [address] 943475 05/31/2025 2:00 PM SCHEDULE CLERK [facility] [place] [address] [place] [address] 4th [place] [phone] Carlos Joyner MD [address] [place] [address] 064075 07/25/2025 11:00 AM SCHEDULE CLERK Office Visit [facility] [address] [place] [address] [place] [address] [place] [address] documented as of this encounter Visit Diagnoses Not on filedocumented in this encounter Additional Health Concerns Infection Onset Date Last Indicated Resolved Time MRSA Comment:Added from external infection. Pt has had Staph infections but never MRSA from Care everywhere chart review. Removing MRSA 9.14.23 06/17/2019 02/06/2023 9:41 AM C DT documented as of this encounter Care Teams Clinical Case Manager Relationship Specialty Start Date End Date Ignacia Duran MD PCP - General Pediatrics 01/20/20 03/04/23 [place] [address] [place] [address] PCP - General 03/05/23 Carlos Joyner MD 909 [place] [address] Urology 12/09/19 Jadon Murray MD [facility] [address] [address] Referring Physician Pediatric Surgery 12/09/19 Maru Villagomez, RN Registered Nurse 12/10/19 Ang Slade MD [address] [address] Urology 04/24/20 Carlos Joyner MD [address] [place] [address] Assigned Surgical Provider 12/24/20 Annalise Orta PA-C 5[address] [facility] [place] [place] [address] Assigned Cancer Care Provider 05/13/21 11/01/22 Ang Slade MD 420 [facility] 394 [place] [address] Urology 12/18/22 Lakshmi Wilhelm PA-C [address] [place] [address] Physician Rehabilitation Specialist Urology 02/03/23 [place] [address] [place] [address] Assigned PCP 02/06/23 Alissa Perez PA-C [address] [place] [address] Physician Rehabilitation Specialist Surgery 09/04/23 Lakshmi Wilhelm PA-C [address] [place] [address] Physician Rehabilitation Specialist Urology 09/16/23 Aidee Valero PA-C [address] [place] [address] Assigned Musculoskeletal Provider 04/17/24 02/14/25 Carlos Joyner MD [address] [place] [address] Urology 01/26/25 Jadon Floyd MD [address] [place] [address] Physician Physical Medicine and Rehabilitation 01/31/25 [place] [address] [place] [address] Assigned Musculoskeletal Provider 02/15/25 Tanisha Marlow 4120 [facility] [address] 03/30/24 documented as of this encounter
--- OUTSIDE RECORDS SUMMARY | 2025-03-01 03:00 | XMS_ITS | Encounter Summary ---
Author Organization [facility] Address [address] [place] [address] Care Team Providers Care Die Finisher Forging Name Role Phone Carlos Joyner MD Unavailable +[phone] Jadon Murray MD Unavailable +[phone] Maru Villagomez RN Unavailable Unavailable Ignacia Duran MD Primary Care Provider [phone] Ang Slade MD Unavailable +[phone] Carlos Joyner MD Unavailable +[phone] Annalise Orta PA-C Unavailable +[phone] Ang Slade MD Unavailable +[phone] Lakshmi Wilhelm-C Unavailable +[phone] Heladio Willoughby MD Primary Care Provider [phone] Heladio Willoughby MD Unavailable Alissa Perez PA-C Unavailable [phone] LaLakshmi morales-C Unavailable +[phone] Aidee Valero PA-C Unavailable +[phone] Carlos Joyner MD Unavailable +[phone] Jadon Floyd MD Unavailable [phone] Cayden Bejarano MD Unavailable Encounter Details Date Type Department Care Team (Late st Contact Info) Description 10/02/[address] [facility] [address]th [place] [phone] Analisa Palacio RN Social History Tobacco Use [...] [facility] [address] [place] [phone] Jadon Floyd MD [address] [place] [address] 03/23/2025 12:45 PM CDT Appointment [facility] [address] [place] [phone] [place] [address] [facility] [address] [address] [place] [address] 03/23/2025 1:30 PM CDT Hospital Encounter [facility] [address] [place] [phone] [place] [address] [facility] [address] [place] [address] 03/25/2025 10:20 AM CDT Virtual Visit [facility] [place] [address] [place] [address] [place] [address] [place] [address] 04/04/2025 12:00 PM REINSTATEMENT CLERK Office [facility] [place] 606 [facility] [place] [phone] Sugey Mccoy APRN [facility] [address] [place] [address] [address] [place], [place] 497494 05/30/2025 10:20 AM REINSTATEMENT CLERK Appointment [facility] [address] [facility] [address] [place] [phone] Carlos Joyner MD [address] [place] [address] 05/31/2025 2:00 PM REINSTATEMENT CLERK Virtual Visit [facility] [place] 909 [facility] 4th [place] [phone] Carlos Joyner MD [address] [place] [address] 968285 07/25/2025 11:00 AM REINSTATEMENT CLERK Office Visit [facility] [address] [place] [address] [place] [address] [place] [address] documented as of this encounter Visit Diagnoses Not on filedocumented in this encounter Additional Health Concerns Infection Onset Date Last Indicated Resolved Time MRSA Comment:Added from external infection. Pt has had Staph infections but never MRSA from Care everywhere chart review. Removing MRSA 9.14.23 06/17/2019 02/06/2023 9:41 AM C DT documented as of this encounter Care Teams Die Finisher Forging Relationship Specialty Start Date End Date Ignacia Duran MD PCP - General Pediatrics 01/20/20 03/04/23 [place] [address] [place] [address] PCP - General 03/05/23 Carlos Joyner MD [address] [place] [address] 586105 Urology 12/09/19 Jadon Murray MD [facility] [address] [address] Referring Physician Pediatric Surgery 12/09/19 Maru Villagomez, OTILIO Registered Nurse 12/10/19 Ang Slade MD [address] [place] [address] 074095 Urology 04/24/20 Carlos Joyner MD [address] [place] [address] Assigned Surgical Provider 12/24/20 Annalise Orta PA-C [address]200 [place] [address] Assigned Cancer Care Provider 05/13/21 11/01/22 Ang Slade MD [address] [place] [address] Urology 12/18/22 Lakshmi Wilhelm PA-C [address] [place] [address] Physician Runner On Urology 02/03/23 [place] [address] [place] [address] Assigned PCP 02/06/23 Alissa Perez PA-C [address] [place] [address] Physician Runner On Surgery 09/04/23 Lakshmi Wilhelm PA-C [address] [place] [address] Physician Runner On Urology 09/16/23 Aidee Valero PA-C [address] [place] [address] 135125 Assigned Musculoskeletal Provider 04/17/24 02/14/25 Carlos Joyner MD [address] [place] [address] 324065 Urology 01/26/25 Jadon Floyd MD [address] [place] [address] 657055 Physician Physical Medicine and Rehabilitation 01/31/25 [place] [address] [place] [address] Assigned Musculoskeletal Provider 02/15/25 Tanisha Marlow 4120 [facility] [address] 03/30/24 documented as of this encounter
--- OUTSIDE RECORDS SUMMARY | 2025-03-01 03:00 | XMS_ITS | Encounter Summary ---
Author Organization [facility] Address [address] [place] [address] Care Team Providers Care Field Technical Assistant Name Role Phone Carlos Joyner MD Unavailable + [phone] Jadon Murray MD Unavailable +[phone] Maru Villagomez RN Unavailable Unavailable Ang Slade MD Unavailable [phone] Carlos Joyner MD Unavailable + [phone] Ang Slaed MD Unavailable +[phone] Lakshmi Wilhelm-C Unavailable +[phone] Heladio Willoughby MD Primary Care Provider [phone] Heladio Willoughby MD Unavailable Alissa Perez PA-C Unavailable [phone] Lakshmi Wilhelm-C Unavailable +[phone] Aidee Valero PA-C Unavailable +[phone] Carlos Joyner MD Unavailable + [phone] Jadon Floyd MD Unavailable [phone] Cayden Bejarano MD Unavailable Encounter Details Date Type Department Care Team (Late st Contact Info) Description 08/18/2023 [facility] [address] [address] Conner, Analisa Social History Tobacco [...] [facility] [address] [address] Jadon Floyd MD [address] [place] [address] 814655 03/23/2025 12:45 PM CDT Appointment [facility] [address] [facility] [address] [place] [address] [place] [address] [place] [address] 03/23/2025 1:30 PM CDT Hospital Encounter [facility] [address] [facility] [address] [place] [address] [place] [address] [place] [address] [address] [place] [address] 03/25/2025 10:20 AM CDT Virtual Visit [facility] Sports Medicine [facility] [address] [place] [address] [address] [place] [address] [place] [address] [place] [address] 04/04/2025 12:00 PM CHOIR ACCOMPANIST Office Visit [facility] Sleep [address] [phone] Sugey Mccoy, ASSISTANT CASINO SHIFT MANAGER [address] 324[address] 05/30/2025 10:20 AM CHOIR ACCOMPANIST Appointment [facility] [address] [facility] [address] [place] [address] Carlos Joyner MD [address] [place] [address] 07969455 05/31/2025 2:00 PM CHOIR ACCOMPANIST Virtual Visit [facility] [address] 4th [place] [address] Carlos Joyner MD [address] [place] [address] 23344455 07/25/2025 11:00 AM CHOIR ACCOMPANIST Office Visit [facility] [place] [address] [place] [phone] [place] [address] [place] [phone] documented as of this encounter Visit Diagnoses Not on filedocumented in this encounter Care Teams Field Technical Assistant Relationship Specialty Start [place] [address] [place] [address] PCP - General 03/05/23 Carlos Joyner MD [address] [place] [address] Urology 12/09/19 Jadon Murray MD [facility] 2530 [facility] 550 [place] [address] Referring Physician Pediatric Surgery 12/09/19 Maru Villagomez, RN Registered Nurse 12/10/19 Ang Slade MD [address] [place] [address] Urology 04/24/20 Carlos Joyner MD [address] [place] [address] 943925 Assigned Surgical Provider 12/24/20 Ang Slade MD [address] [address] Urology 12/18/22 Lakshmi Wilhelm PA-C [address] [place] [address]3565 Physician Environment Artist Urology 02/03/23 [place] [address] [place] [address] Assigned PCP 02/06/23 Alissa Perez PA-C [address] [place] [address] Physician Environment Artist Surgery 09/04/23 Lakshmi Wilhelm PA-C [address] [place] [address] Physician Environment Artist Urology 09/16/23 Aidee Valero PA-C [address] [place] [address] Assigned Musculoskeletal Provider 04/17/24 02/14/25 Carlos Joyner MD [address] [place] [address] 575485 Urology 01/26/25 Jadon Floyd MD [address] [place] [address]36 Physician Physical Medicine and Rehabilitation 01/31/25 [place] [address] [place] [address] Assigned Musculoskeletal Provider 02/15/25 Tanisha Marlow 4120 [facility] [address] (work) 03/30/24 documented as of this encounter
--- OUTSIDE RECORDS SUMMARY | 2025-03-01 03:00 | XMS_ITS | Encounter Summary ---
Author Organization [facility] Address [address] [place] [address] Care Team Providers Care Inside Barrel Polisher Name Role Phone Carlos Joyner MD Unavailable + [phone] Jadon Murray MD Unavailable +[phone] Maru Villagomez RN Unavailable Unavailable Ang Slade MD Unavailable +[phone] Carlos Joyner MD Unavailable +[phone] Ang Salde MD Unavailable +- [phone] Lakshmi Wilhelm-C Unavailable +[phone] Heladio Willoughby MD Primary Care Provider +[phone] Heladio Willoughby MD Unavailable Alissa Perez PA-C Unavailable [phone] Lakshmi Wilhelm-C Unavailable +[phone] Aidee Valero PA-C Unavailable +[phone] Carlos Joyner MD Unavailable + [phone] Jadon Floyd MD Unavailable +[phone] Cayden Bejarano MD Unavailable Encounter Details Date Type Department Care Team (Late st Contact Info) Description 09/08/2023 [facility] [address] [address] Luis M-Bhavna Milligan Social History [...] [facility] [address] [address] Jadon Floyd MD [address] [place] [address] 848655 03/23/2025 12:45 PM CDT Appointment [facility] [address] [facility] [address] [place] [address] [place] [address] [place] [address] 03/23/2025 1:30 PM CDT Hospital Encounter [facility] [address] [facility] [address] [place] [address] [place]den [place] [address] [place] [address] [address] [place] [address] 03/25/2025 10:20 AM CDT Virtual Visit [facility] Sports Medicine [facility] [address] [place] [address] [address] [place] [address] [place] [address] [place] [address] 04/04/2025 12:00 PM LAST SORTER Office Visit [facility] Sleep [address] [phone] Sugey Mccoy, NESTOR [address] [address] 05/30/2025 10:20 AM LAST SORTER Appointment [facility] [address] [facility] [address] [place] [address] Carlos Joyner MD [address] [place] [address] 922765 05/31/2025 2:00 PM LAST SORTER Virtual Visit [facility] [address] 4th [place] [phone] Carlos Joyner MD [address] [place] [address] 07/25/2025 11:00 AM LAST SORTER Office Visit [facility] [address] [address] [phone] [place] [address] [address] [place] [phone] documented as of this encounter Visit Diagnoses Not on filedocumented in this encounter Care Teams Inside Barrel Polisher Relationship Specialty [place] [address] [address] [phone] PCP - General 03/05/23 Carlos Joyner MD [address] [place] [address] Urology 12/09/19 Jadon Murray MD [facility] 2530 [facility] 550 [place] [address] Referring Physician Pediatric Surgery 12/09/19 Maru Villagomez, RN Registered Nurse 12/10/19 Ang Slade MD [address] [place] [address] Urology 04/24/20 Carlos Joyner MD [address] [place] [address] Assigned Surgical Provider 12/24/20 Ang Slade MD [address] [place] [address] Urology 12/18/22 Lakshmi Wilhelm PA-C [address] [place] [address] Physician Supervisor Computer Operations Urology 02/03/23 [place] [address] [place] [address] Assigned PCP 02/06/23 Alissa Perez PA-C [address] [place] [address] Physician Supervisor Computer Operations Surgery 09/04/23 Lakshmi Wilhelm PA-C [address] [place] [address] Physician Supervisor Computer Operations Urology 09/16/23 Aidee Valero PA-C [address] [place] [address] 275955 Assigned Musculoskeletal Provider 04/17/24 02/14/25 Carlos Joyner MD [address] [place] [address] 316055 Urology 01/26/25 Jadon Floyd MD [address] [place] [address] Physician Physical Medicine and Rehabilitation 01/31/25 [place] [address] [place] [address] Assigned Musculoskeletal Provider 02/15/25 Tanisha Marlow [facility] [address] 03/30/24 documented as of this encounter
--- OUTSIDE RECORDS SUMMARY | 2025-03-01 03:00 | XMS_ITS | Encounter Summary ---
Author Organization [facility] Address [address] [place] [address] 17319 Care Team Providers Care Cannon Pinion Adjuster Name Role Phone Carols Joyner MD Unavailable +[phone] Jadon Murray MD Unavailable +[phone] Maru Villagomez RN Unavailable Unavailable Ignacia Duran MD Primary Care Provider [phone] Ang Slade MD Unavailable +[phone] Carlos Joyner MD Unavailable +[phone] Annalise Orta PA-C Unavailable +[phone] Ang Slade MD Unavailable +[phone] Lakshmi Wilhelm-C Unavailable +[phone] Heladio Willoguhby MD Primary Care Provider [phone] Heladio Willoughby MD Unavailable Alissa Perez PA-C Unavailable [phone] LaLakshmi morales-C Unavailable +[phone] Aidee Valero PA-C Unavailable +[phone] Carlos Joyner MD Unavailable +[phone] Jadon Floyd MD Unavailable [phone] Cayden Bejarano MD Unavailable Encounter Details Date Type Department Care Team (Late st Contact Info) Description 04/16/[address] [facility] [address] 4th [place] [phone] Berna Britton Social History Tobacco Use Types [...] [facility] [address] 3rd [place] [address] Jadon Floyd MD [address] [place] [address] 660405 03/23/2025 12:45 PM CDT Appointment [facility] Imaging [address] [place] [address] [place] [address] [facility] [address] [place] [address] 03/23/2025 1:30 PM CDT Hospital Encounter [facility] Imaging [address] [place] [address] Cayden Bejarano [place] [address] [place] [address] 03/25/2025 10:20 AM CDT Virtual Visit [facility] [place] [address] [place] [address] Cayden [place]jar[place] [address] [place] [address] 04/04/2025 12:00 PM DIRECTOR OF VETERANS AFFAIRS Office Visit [facility] [place] [address] [place] [phone] Sugey Mccoy, NESTOR [facility] [address] [place] [address] [address] [place] [address] 05/30/2025 10:20 AM DIRECTOR OF VETERANS AFFAIRS Appointment [facility] Imaging [address] [place] [address] Carlos Joyner MD [address] [place] [address] 522615 05/31/2025 2:00 PM DIRECTOR OF VETERANS AFFAIRS Virtual Visit [facility] Urology Clinic [address] 4th [place] [address] Carlos Joyner MD [address] [place] [address] 07/25/2025 11:00 AM DIRECTOR OF VETERANS AFFAIRS Office Visit [facility] [address] [place] [address] [place] [address] [place] [address] documented as of this encounter Visit Diagnoses Not on filedocumented in this encounter Additional Health Concerns Infection Onset Date Last Indicated Resolved Time MRSA Comment:Added from external infection. Pt has had Staph infections but never MRSA from Care everywhere chart review. Removing MRSA 02.06.23 06/17/2019 02/06/2023 9:41 AM C DT documented as of this encounter Care Teams Cannon Pinion Adjuster Relationship Specialty Start Date End Date Ignacia Duran MD PCP - General Pediatrics 01/20/20 03/04/23 [place] [address] [facility] [place] [address] PCP - General 03/05/23 Carlos Joyner MD [address] [place] [address] 968[address] Urology 12/09/19 Jadon Murray MD [facility] 2530 [facility] N[facility] [address] [place] [address]77 Referring Physician Pediatric Surgery 12/09/19 Maru Villagomez, RN Registered Nurse 12/10/19 Ang Slade MD [address] [place] [address] 905895 Urology 04/24/20 Carlos Joyner MD [address] [place] [address] 215265 Assigned Surgical Provider 12/24/20 Annalise Orta PA-C 5200 [place] [address] Assigned Cancer Care Provider 05/13/21 11/01/22 Ang Slade MD [address] [phone] Urology 12/18/22 Lakshmi Wilhelm PA-C [address] [place] [address] 58655 Physician Bellman Captain Urology 02/03/23 [place] [address] [place] [address] Assigned PCP 02/06/23 Alissa Perez PA-C [address] [place] [address] 13752 Physician Bellman Captain Surgery 09/04/23 Lakshmi Wilhelm PA-C [address] [place] [address]86 Physician Bellman Captain Urology 09/16/23 Aidee Valero PA-C [address] [place] [address] 39588 Assigned Musculoskeletal Provider 04/17/24 02/14/25 Carlos Joyner MD [address] [place] [address] 0[address]12 Urology 01/26/25 Jadon Floyd MD [address] [place] [address] 55160 Physician Physical Medicine and Rehabilitation 01/31/25 [place] [address] [place] [address] Assigned Musculoskeletal Provider 02/15/25 Tanisha Marlow 4120 [facility] [address] 03/30/24 documented as of this encounter
--- OUTSIDE RECORDS SUMMARY | 2025-03-01 03:00 | XMS_ITS | Encounter Summary ---
Author Organization [facility] Address [address] [place] [address] 9[address] Care Team Providers Care Senior Business Process Analyst Name Role Phone Carlos Joyner MD Unavailable +[phone] Jadon Murray MD Unavailable [phone] Maru Villagomez RN Unavailable Unavailable Ignacia Duran MD Primary Care Provider [phone] Ang Slade MD Unavailable +[phone] Carlos Joyner MD Unavailable +[phone] Annalise Orta PA-C Unavailable +[phone] Ang Slade MD Unavailable +[phone] Lakshmi Wilhelm-C Unavailable +[phone] Heladio Willoughby MD Primary Care Provider [phone] Heladio Willoughby MD Unavailable Alissa Perez PA-C Unavailable [phone] LaLakshmi morales-C Unavailable +[phone] Aidee Valero PA-C Unavailable +[phone] Carlos Joyner MD Unavailable +[phone] Jadon Floyd MD Unavailable [phone] Cayden Bejarano MD Unavailable Encounter Details Date Type Department Care Team (Late st Contact Info) Description 12/05/2021 MyC Medical Advice [facility] Urology Clinic [address] [phone] Janay Seo Social History Tobacco Use Types [...] Description 03/03/2025 9:00 AM CDT Office Visit [facility] Rehabilitation Clinic [address] [phone] Jadon Floyd MD [address] [place] [address] 675275 03/23/2025 12:45 PM CDT Appointment [facility] Imaging [address] [place] [address] [place] [address] [facility] [address] [place] [address] 03/23/2025 1:30 PM CDT Hospital Encounter [facility] Imaging [address] [place] [address] [place] [address] [address] [place] [address] 03/25/2025 10:20 AM CDT Virtual Visit [facility] Medicine [facility] [place] [address] [place] [address] [place] [address] [place] [address] 04/04/2025 12:00 PM INFORMATION LEAD Office Visit [facility] [place] [address] [place] [address] Sugey Mccoy APRN [facility] [address] [place], [place] 5[address] 05/30/2025 10:20 AM INFORMATION LEAD Appointment [facility] Imaging [address] [place] [address]25[address] Carlos Joyner MD [address] [place] [address] 213485 05/31/2025 2:00 PM INFORMATION LEAD Virtual Visit [facility]rology [facility] [place] [address] [place] [address] 4th [place] [address] Carlos Joyner MD [address] [place] [address] 375415 07/25/2025 11:00 AM INFORMATION LEAD Office Visit [facility] [address] [place] [address] [place] [address] [place] [address] documented as of this encounter Visit Diagnoses Not on filedocumented in this encounter Additional Health Concerns Infection Onset Date Last Indicated Resolved Time MRSA Comment:Added from external infection. Pt has had Staph infections but never MRSA from Care everywhere chart review. Removing MRSA 9.14.23 06/17/2019 02/06/2023 9:41 AM C DT documented as of this encounter Care Teams Senior Business Process Analyst Relationship Specialty Start Date End Date Ignacia Duran MD PCP - General Pediatrics 01/20/20 03/04/23 [place] [address] [place] [address] PCP - General 03/05/23 Carlos Joyner MD [address] [place] [address] 22347 Urology 12/09/19 Jadon Murray MD [facility] [address] [address] Referring Physician Pediatric Surgery 12/09/19 Maru Villagomez, RN Registered Nurse 12/10/19 Ang Slade MD [address] [place] [address] 12345 Urology 04/24/20 Carlos Joyner MD [address] [place] [address] 36579 Assigned Surgical Provider 12/24/20 Annalise Orta PA-C 5200 [place] [address] Assigned Cancer Care Provider 05/13/21 11/01/22 Ang Slade MD [address] [address] Urology 12/18/22 Lakshmi Wilhelm PA-C [address] [place] [address] 21462 Physician Brass Wind Instrument Maker Urology 02/03/23 [place] [address] [place] [address] Assigned PCP 02/06/23 Alissa Perez PA-C [address] [place] [address] 807555 Physician Brass Wind Instrument Maker Surgery 09/04/23 Lakshmi Wilhelm PA-C [address] [place] [address] 259585 Physician Brass Wind Instrument Maker Urology 09/16/23 Aidee Valero PA-C [address] [place] [address] 937165 Assigned Musculoskeletal Provider 04/17/24 02/14/25 Carlos Joyner MD [address] [place] [address] 555065 Urology 01/26/25 Jadon Floyd MD [address] [place] [address] 183345 Physician Physical Medicine and Rehabilitation 01/31/25 [place] [address] [place] [address] Assigned Musculoskeletal Provider 02/15/25 Tanisha Marlow 4120 [facility] [address] 03/30/24 documented as of this encounter
--- OUTSIDE RECORDS SUMMARY | 2025-03-01 03:00 | XMS_ITS | Encounter Summary ---
Author Organization [facility] Address [address] [place] [address] Care Team Providers Care Commercial Census Taker Name Role Phone Carlos Joyner MD Unavailable [phone] Jadon Murray MD Unavailable +[phone] Maru Villagomez RN Unavailable Unavailable Ang Slade MD Unavailable +[phone] Carlos Joyner MD Unavailable +[phone] Ang Slaed MD Unavailable [phone] Lakshmi Wilhelm-C Unavailable +[phone] Heladio Willoughby MD Primary Care Provider [phone] Heladio Willoughby MD Unavailable Alissa Perez PA-C Unavailable [phone] Lakshmi Wilhelm-C Unavailable +[phone] Aidee Valero PA-C Unavailable +[phone] Carlos Joyner MD Unavailable +[phone] Jadon Floyd MD Unavailable +[phone] Cayden Bejarano MD Unavailable Encounter Details Date Type Department Care Team (Late st Contact Info) Description 07/09/2024 [facility] Urology Clinic [place] 863129 [facility] 4th [place] [address] Hattie Wing, RN Social History [...] [facility] Physical Medicine [facility] Rehabilitation Clinic [address] [address] Jadon Floyd MD [address] [place] [address] 046245 03/23/2025 12:45 PM CDT Appointment [facility] Imaging [address]26 [facility] [address] [place] [address] [place] [address] [place] [address] 03/23/2025 1:30 PM CDT Hospital Encounter [facility] Imaging [address]60 [facility] [address] [place] [address] [place]den [place]jar[place] [address] [place] [address] [address] [place] [address] 03/25/2025 10:20 AM CDT Virtual Visit [facility] Sports Medicine [facility] [address] [place] [address] [address] [place] [address] [place] [address] [place] [address] 04/04/2025 12:00 PM FINAL ASSEMBLY WORKER Office Visit [facility] Sleep [address] [phone] Sugey Mccoy, PREVENTION SPECIALIST [address] [address] 05/30/2025 10:20 AM FINAL ASSEMBLY WORKER Appointment [facility] Imaging [address]94 [facility] [address] [place] [address] Carlos Joyner MD [address] [place] [address] 539305 05/31/2025 2:00 PM FINAL ASSEMBLY WORKER Virtual Visit [facility] Urology Clinic [address] 4th [place] [address] Carlos Joyner MD [address] [place] [address] [phone] 07/25/2025 11:00 AM FINAL ASSEMBLY WORKER Office [facility] [place] [address] [address] [phone] [place] [address] [address] [place] [phone] documented as of this encounter Visit Diagnoses Not on filedocumented in this encounter Care Teams Commercial Census Taker Relationship Specialty Start [place] [address] [address] [phone] PCP - General 03/05/23 Carlos Joyner MD [address] [place] [address] 26959 Urology 12/09/19 Jadon Murray MD [facility] [address] [facility] [address] [place] [address] Referring Physician Pediatric Surgery 12/09/19 Maru Villagomez, RN Registered Nurse 12/10/19 Agn Slade MD [address] [place] [address] 09475 Urology 04/24/20 Carlos Joyner MD [address] [place] [address] 81268 Assigned Surgical Provider 12/24/20 Ang Slade MD [address] [address] Urology 12/18/22 Lakshmi Wilhelm PA-C [address] [place] [address] 62923 Physician Corn Detasseler Machine Operator Urology 02/03/23 [place] [address] [place] [address] Assigned PCP 02/06/23 Alissa Perez PA-C [address] [place] [address] 00747 Physician Corn Detasseler Machine Operator Surgery 09/04/23 Lakshmi Wilhelm PA-C [address] [place] [address] 04879 Physician Corn Detasseler Machine Operator Urology 09/16/23 Aidee Valero PA-C [address] [place] [address] 912875 Assigned Musculoskeletal Provider 04/17/24 02/14/25 Carlos Joyner MD [address] [place] [address] 984395 Urology 01/26/25 Jadon Floyd MD [address] [place] [address] 58654 Physician Physical Medicine and Rehabilitation 01/31/25 [place] [address] [place] [address] Assigned Musculoskeletal Provider 02/15/25 Tanisha Marlow 4120 [facility] [id number] 03/30/24 documented as of this encounter
--- OUTSIDE RECORDS SUMMARY | 2025-03-01 03:00 | XMS_ITS | Encounter Summary ---
Author Organization [facility] Address [address] [place] [address] Care Team Providers Care Paper Latcher Name Role Phone Carlos Joyner MD Unavailable +[phone] Jadon Murray MD Unavailable +[phone] Maru Villagomez RN Unavailable Unavailable Ang Slade MD Unavailable +[phone] Carlos Joyner MD Unavailable +[phone] Ang Slade MD Unavailable +[phone] Lakshmi Wilhelm-C Unavailable +[phone] Heladio Willoughby MD Primary Care Provider [phone] Heladio Willoughby MD Unavailable Alissa Perez PA-C Unavailable [phone] Lakshmi Wilhelm-C Unavailable +[phone] Aidee Valero PA-C Unavailable +[phone] Carlos Joyner MD Unavailable +[phone] Jadon Floyd MD Unavailable +[phone] Cayden Bejarano MD Unavailable Encounter Details Date Type Department Care Team (Late st Contact Info) Description 09/18/2023 [facility] Urology [place] 815909 [facility] 4th [place] [address] Carlos Joyner MD [address] [place] [address] [phone] Social History Tobacco Use Types Packs/Day Years [...] [facility] [address]rd [place] [address] Jadon Floyd MD [address] [place] [address] 03/23/2025 12:45 PM CDT Appointment [facility] Imaging [address] [facility] [address] [place] [address] [place] [address] [place] [address] 03/23/2025 1:30 PM CDT Hospital Encounter [facility] Imaging [address] [facility] [address] [place] [address]-25[address] [place] [address] [place] [address] 03/25/2025 10:20 AM CDT Virtual Visit [facility] Sports Medicine [facility] [address] [place] [address] [address] [place] [address] [place] [address] [place] [address] 04/04/2025 12:00 PM SPECIAL EVENTS MANAGER Office Visit [facility] [address] [place] [phone] Sugey Mccoy, WOOD BOAT BUILDER SUPERVISOR [address] [address] 05/30/2025 10:20 AM SPECIAL EVENTS MANAGER Appointment [facility] Imaging [address] [facility] [address] [place] [address] Carlos Joyner MD [address] [place] [address] 131965 05/31/2025 2:00 PM SPECIAL EVENTS MANAGER Virtual Visit [facility] [address] 4th [place] [address] Carlos Joyner MD 909 [place] [address] 07/25/2025 11:00 AM SPECIAL EVENTS MANAGER Office Visit [facility] [address] [place] [address] [place] [address] [place], [place] [phone] documented as of this encounter Visit Diagnoses Not on filedocumented in this encounter Care Teams Paper Latcher Relationship Specialty Start [place] [address] [address] [place], [place] [phone] PCP - General 03/05/23 Carlos Joyner MD [address] [place] [address] 92859 Urology 12/09/19 Jadon Murray MD [facility] [address] [address] Referring Physician Pediatric Surgery 12/09/19 Maru Villagomez, OTILIO Registered Nurse 12/10/19 Ang Slade MD [address] [place] [address] 49[address] Urology 04/24/20 Carlos Joyner MD [address] [place] [address] 38972 Assigned Surgical Provider 12/24/20 Ang Slade MD [address] [place] [address] 36324 Urology 12/18/22 Lakshmi Wilhelm PA-C [address] [place] [address] 51832 Physician Brick Loader Urology 02/03/23 [place] [address] [place] [address] Assigned PCP 02/06/23 Alissa Perez PA-C [address] [place] [address] 24351 Physician Brick Loader Surgery 09/04/23 Lakshmi Wilhelm PA-C [address] [place] [address] 12444 Physician Brick Loader Urology 09/16/23 Aidee Valero PA-C [address] [place] [address] 47366 Assigned Musculoskeletal Provider 04/17/24 02/14/25 Carlos Joyner MD [address] [place] [address]115 Urology 01/26/25 Jadon Floyd MD [address] [place] [address] 694925 Physician Physical Medicine and Rehabilitation 01/31/25 [place] [address] [place] [address] Assigned Musculoskeletal Provider 02/15/25 Tanisha Marlow 4120 [facility] [address] 03/30/24 documented as of this encounter
--- OUTSIDE RECORDS SUMMARY | 2025-03-01 03:00 | XMS_ITS | Encounter Summary ---
Author Organization [place] Address [address] [place] [address] 76843 Care Team Providers Care Packaging Sales Representative Name Role Phone Carlos Joyner MD Unavailable +[phone] Jadon Murary MD Unavailable [phone] Maru Villagomez RN Unavailable Unavailable Ang Slade MD Unavailable +[phone] Carlos Joyner MD Unavailable +[phone] Ang Slade MD Unavailable [phone] Lakshmi Wilhelm-C Unavailable +[phone] Heladio Willoughby MD Primary Care Provider [phone] Heladio Willoughby MD Unavailable Alissa Perez PA-C Unavailable [phone] Lakshmi Wilhelm-C Unavailable [phone] Aidee Valero PA-C Unavailable +[phone] Carlos Joyner MD Unavailable +[phone] Jadon Floyd MD Unavailable +[phone] Cayden Bejarano MD Unavailable Encounter Details Date Type Department Care Team (Late st Contact Info) Description 04/08/2023 [facility] Urology Clinic [place] 695609 [facility] 4th [place] [address] Rosita Velasco, RN Social History [...] Center Physical Medicine and Rehabilitation Clinic [address] [address] Jadon Floyd MD [address] [place] [address] 508175 03/23/2025 12:45 PM CDT Appointment [facility] Imaging [address] [facility] [address] [place] [address] [place] [address] [place] [address] 03/23/2025 1:30 PM CDT Hospital Encounter [facility] Imaging [address] [facility] [address] [place] [address] Cayden [place]jarano [place] [address] [place] [address] [address] [place] [address] 03/25/2025 10:20 AM CDT Virtual Visit [facility] Sports Medicine [facility] [address] [place] [address] [address] [place] [address] [place] [address] [place] [address] 04/04/2025 12:00 PM DONOR TECHNICIAN Office Visit [facility] Sleep [address] [phone] Sugey Mccoy, NESTOR [address] [address] 05/30/2025 10:20 AM DONOR TECHNICIAN Appointment [facility] Imaging [address] [facility] [address] [place] [address] Carlos Joyner MD [address] [place] [address] 489195 05/31/2025 2:00 PM DONOR TECHNICIAN Virtual Visit [facility] Urology Clinic [address] 4th [place] [address] Carlos Joyner MD [address] [place] [address] 07/25/2025 11:00 AM DONOR TECHNICIAN Office Visit [facility] [place] [address] [address] [phone] [place] [address] [address] [place] MD [phone] documented as of this encounter Visit Diagnoses Not on filedocumented in this encounter Care Teams Packaging Sales Representative Relationship Specialty Start [place] [address] [address] [phone] PCP - General 03/05/23 Carlos Joyner MD [address] [place] [address] 37908 Urology 12/09/19 Jadon Murray MD [facility] 2530 [facility] 550 [place] [address] Referring Physician Pediatric Surgery 12/09/19 Maru Villagomez, RN Registered Nurse 12/10/19 Ang Slade MD [address] [place] [address] 90305 Urology 04/24/20 Carlos Joyner MD [address] [place] [address] 72990 Assigned Surgical Provider 12/24/20 Ang Slade MD [address] [place] [address] 78402 Urology 12/18/22 Lakshmi Wilhelm PA-C [address] [place] [address] 62846 Physician Employee Benefits Attorney Urology 02/03/23 [place] [address] [place] [address] Assigned PCP 02/06/23 Alissa Perez PA-C [address] [place] [address] 18620 Physician Employee Benefits Attorney Surgery 09/04/23 Lakshmi Wilhelm PA-C [address] [place] [address] 49260 Physician Employee Benefits Attorney Urology 09/16/23 Aidee Valero PA-C [address] [place] [address] 639785 Assigned Musculoskeletal Provider 04/17/24 02/14/25 Carlos Joyner MD [address] [place] [address] 419235 Urology 01/26/25 Jadon Floyd MD [address] [place] [address] 06269 Physician Physical Medicine and Rehabilitation 01/31/25 [place] [address] [place] [address] Assigned Musculoskeletal Provider 02/15/25 Tanisha Marlow [facility] [address] 03/30/24 documented as of this encounter
--- OUTSIDE RECORDS SUMMARY | 2025-03-01 03:00 | XMS_ITS | Encounter Summary ---
Author Organization [place] Address [address] [place] [address] Care Team Providers Care Geodetic Survey Director Name Role Phone Carlos Joyner MD Unavailable +[phone] Jadon Murray MD Unavailable +[phone] Maru Villagomez RN Unavailable Unavailable Ignacia Duran MD Primary Care Provider +[phone] Ang Slade MD Unavailable +[phone] Carlos Joyner MD Unavailable +[phone] Annalise Orta PA-C Unavailable +[phone] Ang Slade MD Unavailable +[phone] Lakshmi Wilhelm-C Unavailable +[phone] Heladio Willoughby MD Primary Care Provider +[phone] Heladio Willoughby MD Unavailable Alissa Perez PA-C Unavailable [phone] LaLakshmi morales-C Unavailable +[phone] Aidee Valero PA-C Unavailable +[phone] Carlos Joyner MD Unavailable +[phone] Jadon Floyd MD Unavailable [phone] Cayden Bejarano MD Unavailable Encounter Details Date Type Department Care Team (Late st Contact Info) Description 11/07/2021 MyC Medical Advice [facility] [address]th [place] [address] Analisa Palacio RN Social History Tobacco Use [...] [facility] [address]rd [place] [phone] Jadon Floyd MD [address] [place] [address] 628015 03/23/2025 12:45 PM CDT Appointment [facility] [address] [facility] [address] [place] [phone] Cayden Bejarano MD [address] [place], [place] [address] [place] [address] 03/23/2025 1:30 PM CDT Hospital Encounter [facility] [address] [place] [phone] [place] [id number] [place] [address] [address] [place] [address] 03/25/2025 10:20 AM CDT Virtual Visit [facility] [place] [address] [place] [address] [place] [address] [place] [address] [place] [address] 04/04/2025 12:00 PM ADDICTION SOCIAL WORKER Office Visit [facility] [place] [address] [place] [address] Sugey Mccoy APRN [facility] [address] [place], [place] 9[address] 05/30/2025 10:20 AM ADDICTION SOCIAL WORKER Appointment [facility] [address] [address] [place] [address] Carlos Joyner MD [address] [place] [address] 05/31/2025 2:00 PM ADDICTION SOCIAL WORKER Virtual Visit [facility] [place] [address] [facility] 4th [place] [address] Carlos Joyner MD [address] [place] [address] 07/25/2025 11:00 AM ADDICTION SOCIAL WORKER Office Visit [facility] [address] [place] [address] [place] [address] [place] [address] documented as of this encounter Visit Diagnoses Not on filedocumented in this encounter Additional Health Concerns Infection Onset Date Last Indicated Resolved Time MRSA Comment:Added from external infection. Pt has had Staph infections but never MRSA from Care everywhere chart review. Removing MRSA 9.14.23 06/17/2019 02/06/2023 9:41 AM C DT documented as of this encounter Care Teams Geodetic Survey Director Relationship Specialty Start Date End Date Ignacia Duran MD PCP - General Pediatrics 01/20/20 03/04/23 [place] [address] [place] [address] PCP - General 03/05/23 Carlos Joyner MD [address] [place] [address] Urology 12/09/19 Jadon Murray MD [facility] [address] [address] Referring Physician Pediatric Surgery 12/09/19 Maru Villagomez, RN Registered Nurse 12/10/19 Ang Slade MD [address] [place] [address] Urology 04/24/20 Carlos Joyner MD [address] [place] [address] Assigned Surgical Provider 12/24/20 Annalise Orta PA-C 5200 [place] [address] Assigned Cancer Care Provider 05/13/21 11/01/22 Ang Slade MD [address] [address] Urology 12/18/22 Lakshmi Wilhelm PA-C [address] [place] [address] Physician Turkey Pinner Urology 02/03/23 [place] [address] [facility] [address] Assigned PCP 02/06/23 Alissa Perez PA-C [address] [place] [address] 626265 Physician Turkey Pinner Surgery 09/04/23 Lakshmi Wilhelm PA-C [address] [place] [address] Physician Turkey Pinner Urology 09/16/23 Aidee Valero PA-C [address] [place] [address] 039605 Assigned Musculoskeletal Provider 04/17/24 02/14/25 Carlos Joyner MD [address] [place] [address] 613295 Urology 01/26/25 Jadon Floyd MD [address] [place] [address] 731585 Physician Physical Medicine and Rehabilitation 01/31/25 [place] [address] [place] [address] Assigned Musculoskeletal Provider 02/15/25 Tanisha Marlow 4120 [facility] [address] 03/30/24 documented as of this encounter
--- OUTSIDE RECORDS SUMMARY | 2025-03-01 03:00 | XMS_ITS | Encounter Summary ---
Author Organization [place] Address [address] [place] [address] Care Team Providers Care Medical Administrative Specialist Name Role Phone Carlos Joyner MD Unavailable [phone] Jadon Murray MD Unavailable [phone] Maru Villagomez RN Unavailable Unavailable Ignacia Duran MD Primary Care Provider [phone] Ang Slade MD Unavailable [phone] Carlos Joyner MD Unavailable +[phone] Annalise Orta PA-C Unavailable +[phone] Ang Slade MD Unavailable +[phone] Lakshmi Wilhelm-C Unavailable [phone] Heladio Willoughby MD Primary Care Provider [phone] Heladio Willoughby MD Unavailable Alissa Perez PA-C Unavailable [phone] LaLakshmi morales-C Unavailable +[phone] Aidee Valero PA-C Unavailable +[phone] Carlos Joyner MD Unavailable +[phone] Jadon Floyd MD Unavailable [phone] Cayden Bejarano MD Unavailable Encounter Details Date Type Department Care Team (Late st Contact Info) Description 10/12/2021 MyC Medical Advice [facility] [address] [place] [phone] Tanisha Coe PA-C [address] [place] [address] Social History Tobacco Use Types Packs/Day Years [...] [facility] [address]rd [place] [phone] Jadon Floyd MD [address] [place] [address] 075135 03/23/2025 12:45 PM CDT Appointment [facility] [address] [facility] [address] [place] [address] Cayden Bejarano MD [address] [place] [address] [address] [place] [address] 03/23/2025 1:30 PM CDT Hospital Encounter [facility] [address] [place] [address] [place] [address] Cayden Bejarano MD [address] [place] [address] [address] [place] [address] 03/25/2025 10:20 AM CDT Virtual Visit [facility] [address] [place] [address] [place] [address] [place] [address] 04/04/2025 12:00 PM RENTAL BOATS CARETAKER Office Visit [facility] [place] [address] [place] [address] Sugey Mccoy APRN [facility] [address] [place], [place] [address] [place], [place] 252784 05/30/2025 10:20 AM RENTAL BOATS CARETAKER Appointment [facility] [address] [facility] [address] [place] [address] Carlos Joyner MD [address] [place] [address] 407905 05/31/2025 2:00 PM RENTAL BOATS CARETAKER Virtual Visit [facility] [place] [address] [place] [address] 4th [place] [phone] Carlos Joyner MD [address] [place] [address] 631485 07/25/2025 11:00 AM RENTAL BOATS CARETAKER Office Visit [address] [address] [place] [address] [place] [address] documented as of this encounter Visit Diagnoses Not on filedocumented in this encounter Additional Health Concerns Infection Onset Date Last Indicated Resolved Time MRSA Comment:Added from external infection. Pt has had Staph infections but never MRSA from Care everywhere chart review. Removing MRSA 9.14.23 06/17/2019 02/06/2023 9:41 AM C DT documented as of this encounter Care Teams Medical Administrative Specialist Relationship Specialty Start Date End Date Ignacia Duran MD PCP - General Pediatrics 01/20/20 03/04/23 [place] [address] [place] [address] PCP - General 03/05/23 Carlos Joyner MD 9 [place] [address] Urology 12/09/19 Jadon Murray MD [facility] 2530 [facility] 550 [place] [address] Referring Physician Pediatric Surgery 12/09/19 Maru Villagomez, RN Registered Nurse 12/10/19 Ang Slade MD [address] [address] Urology 04/24/20 Carlos Joyner MD [address] [place] [address] Assigned Surgical Provider 12/24/20 Annalise Orta PA-C [address] [place] [address] Assigned Cancer Care Provider 05/13/21 11/01/22 Ang Slade MD 420 [facility] 394 [place] [address] Urology 12/18/22 Lakshmi Wilhelm PA-C [address] [place] [address] Physician Assistant Mechanic Urology 02/03/23 [place] [address] [place] [address] Assigned PCP 02/06/23 Alissa Perez PA-C [address] [place] [address] Physician Assistant Mechanic Surgery 09/04/23 Lakshmi Wilhelm PA-C [address] [place] [address] Physician Assistant Mechanic Urology 09/16/23 Aidee Valero PA-C [address] [place] [address] Assigned Musculoskeletal Provider 04/17/24 02/14/25 Carlos Joyner MD [address] [place] [address] Urology 01/26/25 Jadon Floyd MD [address] [place] [address] 907035 Physician Physical Medicine and Rehabilitation 01/31/25 [place] [address] [place] [address] Assigned Musculoskeletal Provider 02/15/25 Tanisha Marlow 4120 [facility] [address] 03/30/24 documented as of this encounter
--- OUTSIDE RECORDS SUMMARY | 2025-03-01 03:00 | XMS_ITS | Encounter Summary ---
Author Organization [place] Address [address] [place] [address] Care Team Providers Care Certified Flight Instructor Name Role Phone Carlos Joyner MD Unavailable + [phone] Jadon Murray MD Unavailable [phone] Maru Villagomez RN Unavailable Unavailable Ignacia Duran MD Primary Care Provider [phone] Carlos Joyner MD Unavailable + 564[address] Ang Slade MD Unavailable [phone] Ang Slade MD Unavailable [phone] Carlos Joyner MD Unavailable + [address] Annalise Orta PA-C Unavailable +[phone] Ang Slade MD Unavailable [phone] Lakshmi Wilhelm-C Unavailable +[phone] Heladio Willoughby MD Primary Care Provider [phone] Heladio Willoughby MD Unavailable Alissa Perez PA-C Unavailable [phone] Lakshmi Wihlelm-C Unavailable +[phone] Aidee Valero PA-C Unavailable +[phone] Carlos Joyner MD Unavailable +[phone] Jadon Floyd MD Unavailable [phone] Cayden Bejarano MD Unavailable Reason for Visit * Reason Comments Orders Encounter Details Date Type Department Care Team (Late st Contact Info) Description 02/02/2020 Orders Only [facility]rolog[facility] [address] [place] [address] 4th [place] [address] Maru Villagomez RN Social History Tobacco Use [...] [facility] [address] [place] [address] Jadon Floyd MD [address] [place] [address] 03/23/2025 12:45 PM CDT Appointment [facility] [address] [place] [phone] [place] [address] [place] [address] 03/23/2025 1:30 PM CDT Hospital Encounter [facility] [address] [place] [address] [place] [address] [place] [address] [place] [address] 03/25/2025 10:20 AM CDT Virtual Visit [facility] [place] [address] [place] [address] [place] [address] [place] [address] 04/04/2025 12:00 PM PATTERN STAMPER Office Visit [facility] [place] [address] [place] [address] Sugey Mccoy, LINE RUNNER [facility] [address] [place] [address] [address] [place] [address] 05/30/2025 10:20 AM PATTERN STAMPER Appointment [facility] [address] [place] [phone] Carlos Joyner MD [address] [place] [address] 612815 05/31/2025 2:00 PM PATTERN STAMPER Virtual Visit [facility] [place] [address] [place] [address] 4th [place] [address] Carlos Joyner MD [address] [place] [address] 457905 07/25/2025 11:00 AM PATTERN STAMPER Office Visit [place] [phone] [place] [address] [place] [address] [place] [address] documented as of this encounter Visit Diagnoses Not on filedocumented in this encounter Additional Health Concerns Infection Onset Date Last Indicated Resolved Time MRSA Comment:Added from external infection. Pt has had Staph infections but never MRSA from Care everywhere chart review. Removing MRSA 9.14.06/17/2019 02/06/2023 9:41 AM C DT documented as of this encounter Care Teams Certified Flight Instructor Relationship Specialty Start Date End Date Ignacia Duran MD PCP - General Pediatrics 01/20/20 03/04/23 [place] [address] [place] [address] PCP - General 03/05/23 Carlos Joyner MD [address] [place] [address] Urology 12/09/19 Jadon Murray MD [facility] 2530 [facility] 550 [place], [place] [phone] Referring Physician Pediatric Surgery 12/09/19 Maru Villagomez, OTILIO Registered Nurse 12/10/19 Carlos Joyner MD [address] [place] [address] 709925 Assigned Surgical Provider 03/17/20 08/12/20 Ang Slade MD 420 [facility] 394 [place], [place] 3478[address] Urology 04/24/20 Ang Slade MD 420 [facility] 394 [place] [address] Assigned Surgical Provider 08/13/20 12/23/20 Carlos Joyner MD [address] [place] [address] Assigned Surgical Provider 12/24/20 Annalise Orta PA-C 5200 [place] [address] Assigned Cancer Care Provider 05/13/21 11/01/22 Ang Slade MD [address] [place] [address] 317965 Urology 12/18/22 Lakshmi Wilhelm PA-C [address] [place] [address] 786365 Physician Electronics Supervisor Urology 02/03/23 [place] [address] [place] [address] Assigned PCP 02/06/23 Alissa Perez PA-C [address] [place] [address] 331515 Physician Electronics Supervisor Surgery 09/04/23 Lakshmi Wilhelm PA-C [address] [place] [address] Physician Electronics Supervisor Urology 09/16/23 Aidee Valero PA-C [address] [place] [address] Assigned Musculoskeletal Provider 04/17/24 02/14/25 Carlos Joyner MD [address] [place] [address] Urology 01/26/25 Jadon Floyd MD 909 [place] [address] Physician Physical Medicine and Rehabilitation 01/31/25 [place] [address] [place] [address] Assigned Musculoskeletal Provider 02/15/25 Tanisha Marlow 4120 [facility] [address] 03/30/24 documented as of this encounter
--- OUTSIDE RECORDS SUMMARY | 2025-03-01 03:00 | XMS_ITS | Clinical Summary ---
Author Organization [facility] Address [address] [place] [address] Care Team Providers Care Cordwainer Name Role Phone Carlos Joyner MD Unavailable [phone] Jadon Murray MD Unavailable [phone] Maru Villagomez RN Unavailable Unavailable Ang Slade MD Unavailable [phone] Carlos Joyner MD Unavailable [phone] Ang Slade MD Unavailable [phone] Lakshmi Wilhelm-C Unavailable [phone] Heladio Willoughby MD Primary Care Provider [phone] Heladio Willoughby MD Unavailable Alissa Perez PA-C Unavailable [phone] Lakshmi Wilhelm PA-C Unavailable [phone] Carlos Joyner MD Unavailable [phone] Jadon Floyd MD Unavailable [phone] Cayden Bejarano MD Unavailable Allergies Active [...] ALGINATE 2X2) PADSIndications:Pre ssure ulcer acquired in [facility] Externally apply 1 each topically [...] Irrigate with 240 mLs as directed daily. 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 (03/14/2020): Vertebra Absence Congenital Kyphosis (acquired) (postural) 08/04/2008 Overview (03/14/2020): Kyphosis Neurogenic bladder 07/22/2003 Overview (03/05/2023): LW Onset: 83Hsh24 ; Paralysis Bladder Neurogenic bowel 07/22/2003 Overview (03/14/2020): LW Onset: 59Cwl66 Paraplegia 07/22/2003 Overview (01/24/2025): T12 paraplegia, completely flaccid Short stature disorder 07/22/2003 Overview (03/14/2020): LW Onset: 49Mgh72 ; Short Stature 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/22/2003 Overview (07/23/2024): Complicated by hydrocephalus, s/p LEDGER CLERK shunt; chiari type 2 malformation, syringomyelia, neurogenic bowel and bladder. At : [facility], aplasia cutis of scalp (pinpoint), R knee contracture, clubbed feet bilaterally, microcephaly, kyphosis. Specialist involved: Adult Spina Bifida Clinic - looking into locations/referrals Adult neurosurgery team - not needed until age 27 (currently following with Dr. Rodgers [facility]) Adult Urology team - Dr. Joyner of [facility] Adult Sleep Medicine - referral placed Adult Orthopaedics - [facility] Ortho Resolved Problems Problem Noted Date Diagnosed Date Resolved Date Acute kidney failure, unspecified 02/10/2020 03/05/2023 Ulcer, surgical 06/07/2011 07/22/2024 Encounters Date Type Department Care Team Description 02/28/2025 Travel 02/25/2025 10:45 AM CDT Virtual Visit [facility] [address] [address] Estrella Martinez NP Neurogenic bladder (Primary Dx); Recurrent UTI 02/25/2025 Results Follow-Up [facility] [address] [address] Rosita Velasco RN Dx: Recurrent UTI (Primary Dx) 02/24/2025 PRE VISIT [facility] [address] [address] Estrella Martinez NP Pre Visit Planning - Done 02/22/2025 2:30 PM CDT Therapy Visit [address] [address] Eliza Carty OT 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, initial encounter (Primary Dx); Right wrist pain 02/22/2025 MyC Medical Advice [address] [address] Eliza Carty OT 02/22/2025 Travel 02/21/2025 11:[address] [facility] [address] [place] [address] Recurrent UTI; Kidney stone 02/21/2025 Travel 02/17/2025 Travel 02/16/2025 Telephone [facility] [address] [address] Carlos Joyner MD Appointment (TE on 02/08/25 instructing Pt to schedule with Elissa Martinez CNP. Inflated Pad Buffer does not have access to this provider. ) 02/15/2025 10:00 AM CDT Therapy Visit [address] [address] Eliza Carty OT 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, initial encounter (Primary Dx); Right wrist pain 02/15/2025 Travel 02/11/2025 Travel 02/08/2025 3:00 PM CDT Therapy Visit [address] [address] Cayden Bejarano MD Burch, Sophia, OT 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, initial encounter (Primary Dx); Right wrist pain 02/08/2025 Travel 02/08/2025 MyC Medical Advice [facility] [address] [address] Cayden Bejarano MD 02/04/2025 Travel 02/03/2025 Telephone [facility] [address] [phone] Carlos Joyner MD Prior Auth - Medication (Acetohydroxamic Acid (LITHOSTAT) 250 MG TABS - [place] APPROVED) 02/03/2025 Telephone [facility] [address] [phone] Carlos Joyner MD 02/03/2025 [facility] [address] [place] [address] Heladio Willoughby MD Forms (OT Outpatient/Thoratic Spina bifida- [facility]/) 02/01/2025 10:05 AM CDT Ancillary Procedure [facility] [address] [address] Cayden Bejarano MD Right wrist pain 02/01/2025 10:00 AM CDT Office Visit [address] [address] Heladio Willoughby MD Yeo, Albert, MD 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, initial encounter (Primary Dx); Right wrist pain 02/01/2025 Travel 01/28/2025 9:30 AM CDT Office Visit [facility] [address] [place] [address] Heladio Willoughby MD Visit for wound check (Primary Dx); Pressure injury of back, stage 2 (H); Paraplegia (H); Right wrist pain 01/28/2025 Telephone [facility] [address] [place] [phone] Unknown, MD Ronak 01/28/2025 Travel 01/27/2025 Travel 01/26/2025 Travel 01/25/2025 10:45 AM CDT Virtual Visit [facility] [address] [place] [phone] Carlos Joyner MD Recurrent UTI (Primary Dx); Kidney stone 01/25/2025 Telephone [facility] [address] [place] [phone] Unknown Referral 01/25/2025 PRE VISIT [facility] [address] [place] [phone] Rosita Velasco RN Pre Visit Planning - Done 01/24/[address] [phone] Heladio Willoughby MD 01/19/2025 11:30 AM CDT Office Visit [address] [address] Heladio Willoughby MD IUD check up (Primary Dx); Pressure injury of left lower back, stage 2 (H); History of pressure injury of skin; Paraplegia (H); Right wrist pain 01/18/2025 10:07 AM CDT - 01/18/2025 11:59 PM CDT Hospital Encounter [facility] [address] [facility] [address] [place] [address] Mary Jo Pineda MD Bilateral nephrolithiasis Discharge Disposition: Home or Self Care 01/18/2025 Travel 01/17/2025 Travel 01/12/2025 5:30 PM CDT Virtual Visit [facility] [address] [place] [phone] Belen Arellano APRN LAY OUT INSPECTOR Open wound (Primary Dx); Paraplegia (H); Thoracic spina bifida, unspecified hydrocephalus presence (H) 01/12/2025 Results Follow-Up [facility] [place] [address], [place] [phone] Sugey Mccoy APRN LAY OUT INSPECTOR Subj: Sleep study results 01/03/2025 8:00 PM CDT Therapy Visit [facility] Sleep [facility] [address] [facility] [address] [place] [phone] Sugey Mccoy APRN LAY OUT INSPECTOR Snoring; Daytime sleepiness; Thoracic spina bifida, unspecified hydrocephalus presence (H); Chiari malformation type II (H) 01/03/2025 Travel 12/29/2024 Travel 12/20/2024 Medical Correspondence [facility] Information Management [address] [place] [address] [address] [place] [address] Scan, Non-Provider 12/17/2024 Medical Correspondence [facility] Information [address] [place] [address] Scan, Non-Provider 12/17/2024 Telephone [facility] [address] [place] [address] Heladio Willoughby MD Forms ([employer]/Standard written Order/Medicare Power mobility) 12/17/2024 MyC Medical Advice [facility] [address] [place] [address] Heladio Willoughby MD 12/17/2024 Telephone [facility] [address] [place] [phone] Heladio Willoughby MD Forms (Justification For Durable medical Equipment/Mobility Assistance / Electric Wheelchair/) 12/14/2024 11:00 AM CDT Office Visit [facility] [address] [place] [phone] Heladio Willoughby MD Encounter for insertion of intrauterine contraceptive device (Primary Dx) 12/14/2024 Telephone [facility] [address] [place] [address] Heladio Willoughby MD Forms ([facility]/Rehabilitati on Services) 12/14/2024 Travel 12/09/2024 Travel 12/06/2024 Telephone [facility] [address] [place] [phone] Carlos Joyner MD Symptoms 12/06/2024 MyC Medical Advice [facility] [address] [place] [phone] Rosita Velasco RN 12/02/2024 11:09 AM CDT Anesthesia Event [facility] [address] [place] [phone] Suad Jackson MD Roethke, Lindsay, MD 12/02/2024 10:20 AM CDT - 12/02/2024 1:45 PM CDT Surgery [facility] [address] [place] [phone] Carlos Joyner MD Left Percutaneous Nephrolithotomy with left ureteral stent placement 12/02/2024 7:39 AM CDT - 12/04/2024 5:34 PM CDT Hospital Encounter [facility] [address] [place] [address] Carlos Joyner MD Recurrent cystitis (Primary Dx); Bilateral nephrolithiasis Discharge Disposition: Home or Self Care 12/02/2024 Travel 11/30/2024 Medical Correspondence [facility] Health Information Management [address] [facility] [address] [place] [address] Scan, Non-Provider 11/30/2024 Travel 11/29/2024 Telephone [facility] [address] [place] [address] Heladio Willoughby MD Forms (DME Incontinence Supplies- [facility] Home medical) from Last 3 Months Immunizations Immunization Administration Dates Next Due DTAP (<7y) 01/18/2008,05/06/2005 DTaP, Unspecified 01/16/2015 DTaP/HepB/IPV 05/27/2003,03/21/2003,2002 Flu, Unspecified 02/26/2016,02/21/2009, 4 G3c0-43 Novel Flu 03/18/2009 T9m4-68 Novel Flu P-free 03/30/2004,05/27/2003 HIB (PRP-T) 05/27/2003,03/21/2003,2002 [...] than three times a week 07/16/2024 Attends Gnosticist Services Not on file 07/16 Active Member of Clubs or Organizations Not on f ile 07/16/2024 Attends Club or Organization Meetings Not on antelmo e 07/16/2024 Marital Status Not on file 07/16/2024 PHQ-2 Answer Date Recorded PHQ-2 Score 0 09/13/2024 [facility] - Occupational Stress [...] [facility] [address] [address] Jadon Floyd MD [address] [place] [address] 03/23/2025 12:45 PM CDT Appointment [facility] [address] [place] [phone] [place] [address] [place] [address] 03/23/2025 1:30 PM CDT Hospital Encounter [facility] [address] [place] [phone] [place] [address] [place] [address] 03/25/2025 10:20 AM CDT Virtual Visit [facility] [address] [place] [address] [address] [place] [address] [place] [address] [place] [address] 04/04/2025 12:00 PM FACILITIES MAINTENANCE MANAGER Office Visit [facility] [address] [phone] Sugey Mccoy, MECHANICAL PLANNER [address] [address] 05/30/2025 10:20 AM FACILITIES MAINTENANCE MANAGER Appointment [facility] [address] [facility] [address] [place] [phone] Carlos Joyner MD [address] [place] [address] 05/31/2025 2:00 PM FACILITIES MAINTENANCE MANAGER Virtual Visit [facility] [address] 4[address] [place] [phone] Carlos Joyner MD [address] [place] [address] 07/25/2025 11:00 AM FACILITIES MAINTENANCE MANAGER Office Visit [facility] [address] [place] [address] [place] [address] [place] [address] Health Maintenance Due Date Last [...] history exists Medical Devices Implanted Type Area Business Office Technology Instructor Device Identifier Shelf Expiration Date Model / Serial / Lot Chinese Herbalist Shunt Shunt [id number] / / [id number] Description:Per note, Codmendel Certas, needs model # Stent Ureteral Percuflex Plus [id number] - [id number] Implanted:Qty: 1 on 11/12/2021 by Carlos Joyner MD at [facility] Stent Right: Abdomen [employer] [id number] 12/26/2022 [id number] Stent Ureteral Percuflex Plus [id number] - [id number] Implanted:Qty: 1 on 12/02/2024 by Carlos Joyner MD at [facility] Stent Left: Ureter [employer] [id number] 06/03/2027 [id number] / / [id number] Stent Ureteral Percuflex Plus [id number] - [id number] Implanted:Qty: 1 on 12/02/2024 by Carlos Joyner MD at [facility] Stent Right: Ureter [employer] [id number] 04/13/2027 [id number] Ureteral Catheter 5 Brazilian Implanted:Qty: 1 on 03/31/2023 by Elizabeth Jacobsen MD at [facility] Right: Ureter 02/02/2026 [id number] Description:5 trinidadian Uretera l catheter used as a stent in right ureter 5 Brazilian Open Ended Catheter Implanted:Qty: 1 on 03/31/2023 by Elizabeth Jacobsen MD at [facility] Left: Ureter 02/19/2026 [id number] / / [id number] Explanted Type Area Business Office Technology Instructor Device Identifier Shelf Expiration Date Model / Serial / Lot Stent Ureteral Percuflex Plus [id number] - [id number] Implanted:Qty: 1 on 05/10/2021 by Carlos Joyner MD at [facility] Explanted:Qty: 1 on 08/09/2021 by Jane Gomez MD at [facility] Stent Right: Urethra [employer] 06/14/2022 [id number] / [id number] Description:Ureter Stent Ureteral Percuflex Plus [id number] - [id number] Implanted:Qty: 1 on 05/10/2021 by Carlos Joyner MD at [facility] Explanted:Qty: 1 on 08/09/2021 by Jane Gomez MD at [facility] Stent Left: Urethra [employer] 07/25/2022 [id number] Stent Ureteral Percuflex Plus [id number] - [id number] Implanted:Qty: 1 on 08/09/2021 by Jane Gomez MD at [facility] Explanted:Qty: 1 on 11/12/2021 at [facility] Stent Right: Ureter [employer] 02/29/2024 [id number] Stent Ureteral Percuflex Plus [id number] - [id number] Implanted:Qty: 1 on 08/09/2021 by Jane Gomez MD at [facility] Explanted:Qty: 1 on 11/12/2021 at [facility] Stent Right: Ureter [employer] 02/29/2024 [id number] 5 Fr X 22cm Ureteral Stent Explanted:Qty: 1 on 02/07/2020 by Carlos Joyner MD at [facility] COOK 5 Fr X 22cm Ureteral Stent Explanted:Qty: 1 on 02/07/2020 by Carlos Joyner MD at [facility] COOK Procedures Procedure Name Priority Date/Time [...] Discharge 01/18/2025 10:39 AM CDT Bilateral nephrolithiasis BARK FITTER COMPREHENSIVE SLEEP Routine 01/10/2025 7:34 AM CDT Snoring Daytime sleepiness Thoracic spina bifida, unspecified hydrocephalus presence (H) Chiari malformation type II (H) GA INSERT INTRAUTERINE DEVICE Routine 12/14/2024 12:24 PM [...] LAB - BLOOD ORDERABLES Fin al Result [facility] Lab [address] Lab (1st floor, no room number) [place] [id number] * Reticulocyte count (02/21/2025 11:26 AM CDT) % Reticulocyte 1.82 0.50 - 2.00 % 02/21/2025 12:13 PM CDT [facility] Absolute Reticulocyte 0.0865 0.0250 - 0.0950 10e6/uL 02/21/2025 12:13 PM CDT [facility] Blood STRUCTURE OF RIGHT UPPER LIMB / Unknown Venipuncture / Unknown 02/21/2025 11:26 AM CDT 02/21/2025 11:27 AM CDT Carlos Joyner MD LAB - BLOOD ORDERABLES Fin luisito Result [facility] Lab [address] Lab (1st floor, no room number) [place] [address] * Hepatic panel (Albumin, ALT, AST, [...] Carlos Joyner MD LAB - BLOOD ORDERABLES [facility] al Result LABORATORY [facility] Acute Care Lab [address] [facility] Lab (1st floor, no room number) [place] [address], [facility] * (ABNORMAL) Basic metabolic panel (Ca, Cl, CO2, Creat, Gluc, K, Na, BUN) (02/21/2025 11:26 AM CDT) Only the most recent of3 resultswithin the time period is included. Sodium 140 135 - 145 mmol/L 02/21/2025 12:21 PM CDT LABORATORY Potassium 3.9 3.4 - 5.3 mmol/L 02/21/2025 12: PM CDT LABORATORY Chloride 104 98 - [...] - BLOOD ORDERABLES Fin al Result LABORATORY [facility] Acute Care Lab [address] [facility] Lab (1st floor, no room number) [place] [address] * (ABNORMAL) Urine Culture Aerobic Bacterial (02/21/2025 11:15 AM CDT) [facility] Culture 50,000-100,000 CFU/mL Enterococcus faecalis(A) 02/24/2025 10:10 [...] and Susceptibility testing requested by Dr Joyner [phone] Multiple morphotypes present with no predominant organism. [...] Trimethoprim/Sulfa methoxazol e LINDA <=1/19 ug/mL: Susceptible us Carlos Joyner MD LAB - MICRO GENERAL ORDERA BLES Edited Result - Final UU IDD LABORATORY [facility] Inf. Diseases Diag. Lab [address] [facility], [address] [place] [address], [facility] * XR Wrist Right G/E 3 Views [...] EXAM: CT ABDOMEN PELVIS W/O CONTRAST LOCATION: [facility] DATE: 01/18/2025 INDICATION: Bilateral nephrolithiasis [...] EXAM: CT ABDOMEN PELVIS W/O CONTRAST LOCATION: [facility] DATE: 01/18/2025 INDICATION: Bilateral nephrolithiasis [...] 5. Thoracolumbar posterior spinal fixation. us Onuralp Ergun IMG CT ORDERABLES Final Result * Comprehensive Sleep Study (01/10/2025 7:34 AM CDT) BARK FITTER Comprehensive Sleep [facility] PFT 01/10/2025 7:34 AM [...] weighs 155.0 lbs. Her BMI is 32.5, [place] sleepiness scale6 and neck circumference is 38 [...] G47.33 Repetitive Intrusions Into Sleep F51.8 01/03/2025 [facility] Study (155.0 lbs) - AHI 6.2, RDI 9.3,Supine AHI 6.2, REM AHI 14.6, Low O2 76.0%, Time Spent <=88% 1.4 minutes /Time Spent <=89% 1.9 minutes. Electronically Signed By: Teja Blum MD 01/09/2025 us Sugey Mccoy MECHANICAL PLANNER LAY OUT INSPECTOR PROCEDURES Final Re sult [facility] * Extra Green Top (Center Heparin) Tube (12/04/2024 7:22 AM CDT) Hold Specimen [facility] 12/04/2024 9:01 AM CDT UR LABORATORY Blood STRUCTURE OF RIGHT HAND / Unknown Venipuncture / Unknown 12/04/2024 7:22 AM CDT 12/04/2024 7:55 AM CDT us Carlos Joyner MD LAB - BLOOD ORDERABLES Fin al Result UR LABORATORY [facility] Acute Care Lab [address] [facility], [address] [place] [address] * (ABNORMAL) CBC with platelets (12/04/2024 7:22 [...] BLOOD ORDERABLES Final Res ult UR LABORATORY [facility] Acute Care Lab [address] [facility], [address] [place] [address], [facility] * XR Surgery NARA L/T 5 Min Fluoro (12/02/2024 1:42 PM CDT) Narrative RADIANT - 12/02/2024 1:44 PM CDT This exam was marked as non-reportable because it will not be read by a radiologist or a [facility] [place] non-radiologist provider. Carlos Joyner MD IMG DIAGNOSTIC IMAGING ORD [...] ORDERA BLES Final Result UU IDD LABORATORY [facility] Inf. Diseases Diag. Lab [address] [facility], [address] [place] [phone] * Stone analysis (12/02/2024 1:08 PM CDT) Stone Mass 975 mg 12/06/2024 10:07 PM CDT [facility] Calculi Description See Note 12/06/2024 10:07 PM CDT [facility] Comment: Specimen consists of numerous brown and jacobsen calculi fragments. The total weight is 975 mg. Stone Composition See Note 025 10:07 PM CDT [facility] Comment: Calculi composed primarily of calcium phosphate [...] composition determined by FTIR analysis. Performed By: [facility] [address] [place] [address] Pourer Metal: Roosevelt Mcghee MD, PhD CLIA Number: [id number] Calculus/Stone LEFT KIDNEY STRUCTURE / Unknown Non-blood Collection / Unknown 12/02/2024 1:08 PM CDT 12/02/2024 1:35 PM CDT us Carlos Joyner MD LAB - BODY FLUIDS ORDERABL ES Final Result [facility] [address] [place] [address], [facility] [phone] * ANE AIRWAY ETT PERFORMABLE (12/02/2024 11:29 [...] Time: 12/02/2024 11:29 AM Suad Jackson MD [place] ANESTHESIA Final Result * Adult Type and [...] ORDE R Final Result UR BLOOD BANK [facility] Blood Components Lab [address] [facility], [address] [place] [address] * Pap Screen Only - Recommended [...] SPECIALTY LABS Specimen Adequacy Satisfactory for evaluation, endocervical/mnedoza sformation zone component present 2024 1:59 PM [...] [facility] [address] [facility] Building, Room [address] [place] [address], [facility] from Last 3 Months or Most Recently Relevant to Health Maintenance [place] Advance Directives For more information, please contact: [phone] Documents on File Type Date Recorded Patient Fruit Tester Expl anation Advance Directives and Living Will [...] patie nt/ legal decision maker Care Teams Cordwainer Relationship Specialty Start [place] [address] [place] [address] PCP - General 03/05/23 Carlos Joyner MD [address] [place] [address] Urology 12/09/19 Jadon Murray MD [facility] [address] [facility] [address] [place] [address] Referring Physician Pediatric Surgery 12/09/19 Maru Villagomez, RN Registered Nurse 12/10/19 Ang Slade MD [address] [facility] [address] [place] [address] Urology 04/24/20 Carlos Joyner MD [address] [place] [address] [id number] Assigned Surgical Provider 12/24/20 Ang Slade MD [address] [place] [address] [id number] MD Urology 12/18/22 Lakshmi Wilhelm PA-C [address] [place] [address] [phone] Physician Motor Analyst Urology 02/03/23 [place] [address] [place] [address] Assigned PCP 02/06/23 Alissa Perez PA-C [address] [place] [address] [phone] Physician Motor Analyst Surgery 09/04/23 Lakshmi Wilhelm PA-C [address] [place] [address] [id number] Physician Motor Analyst Urology 09/16/23 Carlos Joyner MD [address] [place] [id number] Urology 01/26/25 Jadon Floyd MD [address] [place] [address]555 Physician Physical Medicine and Rehabilitation 01/31/25 [place] [address] [address] [address] Assigned Musculoskeletal Provider 02/15/25 Tanisha Marlow [address] [place] [address] 03/30/24
--- OUTSIDE RECORDS SUMMARY | 2025-03-01 03:00 | XMS_ITS | Encounter Summary ---
Author Organization [facility] Address [address] [place] [address] Care Team Providers Care Reel Cart Operator Name Role Phone Carlos Joyner MD Unavailable [phone] Jadon Murray MD Unavailable [phone] Maru Villagomez RN Unavailable Unavailable Ignacia Duran MD Primary Care Provider [phone] Ang Slade MD Unavailable [phone] Carlos Joyner MD Unavailable [phone] Annalise Orta PA-C Unavailable [phone] nAg Slade MD Unavailable [phone] Lakshmi Wilhelm-C Unavailable [phone] Heladio Willoughby MD Primary Care Provider [phone] Heladio Willoughby MD Unavailable Alissa Perez PA-C Unavailable [phone] LaLakshmi morales-C Unavailable [phone] Aidee Valero PA-C Unavailable [phone] Carlos Joyner MD Unavailable [phone] Jadon Floyd MD Unavailable [phone] Cayden Bejarano MD Unavailable Encounter Details Date Type Department Care Team (Late st Contact Info) Description 11/14/2021 MyC Medical Advice [facility] [address] [place] [phone] Analisa Palacio RN Social History Tobacco Use [facility] [address] [place] [phone] Jadon Floyd MD [address] [place] [address]195 03/23/2025 12:45 PM CDT Appointment [facility] [address] [facility] [address] [place] [phone] Cayden Bejarano MD [address] [place], [place] [address] [place] [address] 03/23/2025 1:30 PM CDT Hospital Encounter [facility] [address] [place] [phone] [place] [address] [place] [address] 03/25/2025 10:20 AM CDT Virtual Visit [facility] [place] [address] [place] [address] [place] [address] [place] [address] 04/04/2025 12:00 PM OPEN SOAPER TENDER Office Visit [facility] [place] [address] [place] [phone] Sugey Mccoy APRN [facility] [address] [place], [place] [address] 05/30/2025 10:20 AM OPEN SOAPER TENDER Appointment [facility] [address] [place] [phone] Carlos Joyner MD [address] [place] [address] [id number] 05/31/2025 2:00 PM OPEN SOAPER TENDER Virtual Visit [facility] [place] [address] [facility] [address] [place] [phone] Carlos Joyner MD [address] [place] [address] 07/25/2025 11:00 AM OPEN SOAPER TENDER Office Visit [facility] [address] [place] [address] [place] [address] [place] [address] documented as of this encounter Visit Diagnoses Not on filedocumented in this encounter Additional Health Concerns Infection Onset Date Last Indicated Resolved Time MRSA Comment:Added from external infection. Pt has had Staph infections but never MRSA from Care everywhere chart review. Removing MRSA 9.14.23 06/17/2019 02/06/2023 9:41 AM C DT documented as of this encounter Care Teams Reel Cart Operator Relationship Specialty Start Date End Date Ignacia Duran MD PCP - General Pediatrics 01/20/20 03/04/23 [place] [address] [place] [address] PCP - General 03/05/23 Carlos Joyner MD [address] [place] [address] Urology 12/09/19 Jadon Murray MD [facility] [address] [address] Referring Physician Pediatric Surgery 12/09/19 Maru Villagomez, RN Registered Nurse 12/10/19 Ang Slade MD [address] [place] [address] Urology 04/24/20 Carlos Joyner MD [address] [place] [address] Assigned Surgical Provider 12/24/20 Annalise Orta PA-C [address] [place] [address] Assigned Cancer Care Provider 05/13/21 11/01/22 Ang Slade MD [address] [address] Urology 12/18/22 Lakshmi Wilhelm PA-C [address] [place] [address] Physician Steam Plant Operator Urology 02/03/23 [place] [address] [facility] [place] [address] Assigned PCP 02/06/23 Alissa Perez PA-C [address] [place] [address] [id number] Physician Steam Plant Operator Surgery 09/04/23 Lakshmi Wilhelm PA-C [address] [place] [address] Physician Steam Plant Operator Urology 09/16/23 Aidee Valero PA-C [address] [place] [address] 164175 Assigned Musculoskeletal Provider 04/17/24 02/14/25 Carlos Joyner MD [address] [place] [address] [id number] Urology 01/26/25 Jadon Floyd MD [address] [place] [address] [phone] Physician Physical Medicine and Rehabilitation 01/31/25 [place] [address] [place] [address] Assigned Musculoskeletal Provider 02/15/25 Tanisha Marlow [address] [facility] [address] 03/30/24 documented as of this encounter
--- OUTSIDE RECORDS SUMMARY | 2025-03-01 03:00 | XMS_ITS | Patient Health Record ---
Author Organization [facility] Address [facility] [facility] [address] [place] [address] Care Team Providers Care Specimen Technician Name Role Phone Ignacia Duran MD Primary Care Provider ADOLFO PAZ MD Reason For Referral No Information Medications Medication SIG (Take, Route, Fr equency, Duration) Notes Start Date End Date Status Gentamicin Sulfate 40 MG/ML 30ML QHS Intravesically BID; Duration: 30 days 12/30/2019 Active Problems Problem Type SNOMED Code ICD Code Onset Dates Problem Status W/U Status Risk Notes Problem Neurogenic bladder (427758479) Neurogenic bladder (N31.9) Active confirmed Problem Hydrocephalus (863334804) Hydrocephalus (G91.9) Active confirmed Problem Horseshoe kidney (93979254) 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 Problem Acute pyonephrosis (709297949) Acute pyonephrosis (N13.6) Active confirmed Problem Obesity (102983677) Obesity (BMI 30-39.9) (E66.9) Active confirmed Problem Lumbar spina bifida with hydrocephalus (958465717) Spina bifida of lumbosacral region with 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) Active confirmed Problem Acute pyelonephritis (22465649) Acute pyelonephritis (N10) Active confirmed Problem Sepsis (27545821) Sepsis, due to unspecified organism (A41.9) Active confirmed Problem Kidney stone (94960052) Bilateral nephrolithiasis (N20.0) Active confirmed Plan Of Treatment Pending Test Test Name Order Date UDS- Flow, ru, EMG, CMG w/UA/UC and mario tion 12/02/2019 Insurance Providers Payer Name Payer Address Payer Phone Subscriber Number Group Number Insured Name Patient Relationship to Insured Coverage Start Date Coverage End Date [facility] [address] [address] [place] [address] [id number] Fe Escudero Child - Insured has Financial Responsibility [facility] [address] [address] [place] [address] [id number] Laina Escudero Self - patient is the insured
[2025-03-01] MEDS: IPRAT-ALBUT 0.5-2.5 MG/3 ML NEB 1 NEB IH ×4 (03:18→23:15)
--- NOTE | 2025-03-01 03:35 | ED.GENADULT ---
HPI - General Adult General Chief complaint: Shortness of Breath/Dyspnea Stated complaint: shortness of breath Time Seen by Provider: 03/01/25 02:56 Source: patient and EMS Mode of arrival: EMS Limitations: physical limitation History of Present Illness HPI narrative: 24-year-old female with a notable history of paralysis at about the T10 level presents to the emergency department for evaluation of persistent fever, cough and weakness. Evaluated 2 days ago, oxygen sats looked good then, chest x-ray looked normal. She had no obvious signs of sepsis. She was discharged on conservative management. Patient states that she has been worsening since. Had Tylenol about an hour prior to arrival. Not improving symptoms. Fever to 101 here and also at home. Feels generally weak. There is no nausea or vomiting. Cough is nonproductive. Denies any dysuria but does have paralysis and does not always becomes symptomatic to this. Is prone to bladder infections and does have a history of kidney stones in the past as well. She does have some cognitive impairment and is not an ideal historian. But she denies any sore throat, ear pain, skin wounds or other localizing symptoms of infection. She reports that she has had a medicine change, cannot remember who prescribed it or what the medicine was for. Does not know if she has tried other interventions at home besides the Tylenol to help with symptoms. Denies pain in other areas today. No additional information from EMS. Patient was last hospitalized in our facility in April. Had a complicated febrile urinary tract infection at that time. She also has a notable history of horseshoe kidney and has been advised to avoid NSAIDs. Creatinine is typically normal. As far as other chronic past medical problems most notable for the paraplegia she also has depression, frequent kidney stones, complicated urinary infections and her paralysis level is reported to be at about T10 per her report. She does straight cath to empty her bladder. ROS is notable for the respiratory and generalized symptoms as above. Otherwise she denies times 12 systems but may not be an ideal historian. Related Data Home Medications ?Medication ?Instructions ?Recorded ?Confirmed oxybutynin chloride 5 mg tablet 5 mg PO BID 07/21/22 06/10/24 indapamide 1.25 mg tablet 1.25 mg PO QAM 10/31/23 06/10/24 potassium chloride 10 mEq 10 meq PO BID 10/31/23 06/10/24 tablet,extended release(part/cryst) Previous Rx's ?Medication ?Instructions ?Recorded ciprofloxacin HCl 500 mg tablet 500 mg PO BID 10 days #20 tabs 05/02/24 (Cipro) ciprofloxacin HCl 500 mg tablet 500 mg PO BID #14 tabs 06/07/24 (Cipro) ondansetron 4 mg disintegrating 4 mg PO Q8H PRN nausea and 07/19/24 tablet vomiting #10 tabs Allergies Allergy/AdvReac Type Severity Reaction Status Date / Time ibuprofen Allergy Intermediate 1 Kidney Verified 08/03/24 22:05 vancomycin Allergy Intermediate Swapnil Verified 08/03/24 22:05 Syndrome latex Allergy Mild Rash Verified 08/03/24 22:05 PFSH PFSH Medical History Depression ?F32.A - Depression, unspecified (ICD-10) Paraplegia ?G82.20 - Paraplegia, unspecified (ICD-10) Horseshoe kidney ?Q63.1 - Lobulated, fused and horseshoe kidney (ICD-10) Mild intellectual disability ?F70 - Mild intellectual disabilities (ICD-10) Neurogenic bladder ?N31.9 - Neuromuscular dysfunction of bladder, unspecified (ICD-10) COVID-19 ?U07.1 - COVID-19 (ICD-10) Spina bifida ?Q05.9 - Spina bifida, unspecified (ICD-10) Surgical History History of spinal fusion ?Z98.1 - Arthrodesis status (ICD-10) H/O wisdom tooth extraction ?K08.409 - Partial loss of teeth, unspecified cause, unspecified class (ICD-10) Hx of nephrolithotomy with removal of calculi ?Z98.890 - Other specified postprocedural states (ICD-10) ?Z87.442 - Personal history of urinary calculi (ICD-10) S/P TECHNOLOGY OFFICER shunt ?Z98.2 - Presence of cerebrospinal fluid drainage device (ICD-10) Family History Father Diabetes Mother Bipolar 1 disorder Social History What is your current living situation?: I presently have a place to live Problems where you live: no known problems Problems where you live details: no known problems In the past 12 months, utilities in danger of being shut off: no In past 12 months, lack of transportation kept you from medical appts, meetings, work, or getting things needed for daily living: no In the past 12 mos, have been you worried that your food would run out before you had money to buy more?: never true In the past 12 mos, the food you bought just didn't last and you didn't have money to buy more?: never true Smoking Status: Never smoker Do you use any of these nicotine containing products: None Second hand tobacco smoke exposure: No How often do you have a drink containing alcohol: never AUDIT-C Alcohol total score: 0 Non-prescribed substance use: denies use Caffeine: Yes (Coffee) How often does anyone, including family, friends and others, physically hurt you: never How often does anyone, including family, friends and others, insult or talk down to you: never How often does anyone, including family, friends and others, threaten you with harm: never How often does anyone, including family, friends and others, scream or curse at you: never service: No Exam Const: Vital Signs, click to edit/add: Vital Signs - 24 hr 03/01/25 02:58 03/01/25 03:04 03/01/25 03:05 Temperature 101.0 F H Pulse Rate Pulse Rate [Pulse Oximeter] 125 H Respiratory Rate 22 20 Blood Pressure Blood Pressure [Le ft Forearm] 115/86 Pulse Oximetry 88 88 94 Oxygen Delivery Me thod Room Air Room Air Nasal Cannula Oxygen Flow Rate 2 03/01/25 03:12 03/01/25 03:12 03/01/25 03:13 Temperature Pulse Rate 116 H 125 H Pulse Rate [Pulse Oximeter] Respiratory Rate Blood Pressure 115/68 Blood Pressure [Le ft Forearm] Pulse Oximetry 95 93 93 Oxygen Delivery Me thod Nasal Cannula Nasal Cannula Nasal Cannula Oxygen Flow Rate 2 2 2 03/01/25 03:15 03/01/25 03:16 03/01/25 03:31 Temperature Pulse Rate 124 H 124 H 129 H Pulse Rate [Pulse Oximeter] Respiratory Rate Blood Pressure 130/93 H Blood Pressure [Le ft Forearm] Pulse Oximetry 94 94 93 Oxygen Delivery Me thod Nasal Cannula Nasal Cannula Nasal Cannula Oxygen Flow Rate 2 2 2 03/01/25 04:03 03/01/25 04:15 03/01/25 04:30 Temperature Pulse Rate 126 H 116 H 124 H Pulse Rate [Pulse Oximeter] Respiratory Rate Blood Pressure Blood Pressure [Le ft Forearm] Pulse Oximetry 93 90 94 Oxygen Delivery Me thod Nasal Cannula Nasal Cannula Nasal Cannula Oxygen Flow Rate 2 2 2 03/01/25 04:45 03/01/25 04:49 03/01/25 05:00 Temperature Pulse Rate 118 H 126 H 121 H Pulse Rate [Pulse Oximeter] Respiratory Rate Blood Pressure 116/78 Blood Pressure [Le ft Forearm] Pulse Oximetry 89 96 94 Oxygen Delivery Me thod Nasal Cannula Nasal Cannula Nasal Cannula Oxygen Flow Rate 2 2 2 03/01/25 05:01 03/01/25 05:15 Temperature Pulse Rate 116 H 117 H Pulse Rate [Pulse Oximeter] Respiratory Rate Blood Pressure 112/86 Blood Pressure [Le ft Forearm] Pulse Oximetry 94 95 Oxygen Delivery Me thod Nasal Cannula Nasal Cannula Oxygen Flow Rate 2 2 Documenting provider has reviewed patient's vital signs: yes Common normals: no apparent distress Other: Suboptimal historian but will maintain conversation. Legs are underdeveloped compared to torso. HENMT: Common normals: normocephalic, moist oral mucous membranes and oropharynx normal Head and scalp: normocephalic Face and sinus: normal facial exam Other: Lips are dry, slightly fissured. Normal dentition, no signs of dental abscess or infection Eye: Other: Conjunctiva injected, no exudate Neck & C-Spine: Common normals: full ROM and no lymphadenopathy General: normal visual inspection Resp: Common normals: normal respiratory effort Other: Decreased breath sounds at the bases, does not area well. No obvious crackles. No wheeze. Coarse upper airway sounds to obscure auscultation somewhat Cardio: Common normals: regular rate, regular rhythm, S1 normal heart sound, S2 normal heart sound and no murmurs Rate: regular rate Rhythm: regular rhythm Heart sounds: S1 normal and S2 normal GI: Common normals: Normal to inspection, nondistended, normoactive bowel sounds present, soft to palpation, no hepatosplenomegaly and no masses Palpation: soft and no hepatosplenomegaly Extremity: Other: Under developed lower extremities with no pitting edema. Paralysis of lower extremities noted. Neuro: Other: Paralysis to underdeveloped lower extremities, generalized weakness to upper extremities. But equal and symmetric. Normal facial exam. Speech seems normal. Mild cognitive impairment. Psych: Common normals: mental status grossly normal Insight: limited Judgement: limited Skin: Common normals: no rashes or lesions noted General skin exam: no rashes or lesions noted Course Course ED Course: 24-year-old female with weakness, fever and cough suspicious for sepsis. Patient is tachycardic with hypoxia to 88%. No hypotension initially. Will place peripheral IV, obtain blood cultures, viral swabs, strep swab also because of the injected eyes. Catheterized urine specimen and culture ordered. Typical intra-abdominal labs and infection markers. Place IV, bolus 500 mL normal saline. Differential diagnosis including pneumonia, sepsis from urinary source, bacteremia, cellulitis, upper respiratory infection, electrolyte abnormality, dehydration, intra-abdominal infection, kidney stone. Await labs, but anticipate CT of chest abdomen and pelvis for further diagnostic loose. Chest x-ray performed 2 days ago was nonrevealing. Reevaluation(s) Reevaluation #1: It took quite some time to get her Fernandez placed, to get an IV start. Her veins are quite fragile and small. Through this, she never once complained of pain to us, was attended to frequently. We needed to wait for urinalysis to come back to get more information regarding potential infection. It did show both blood and infection, she does have a history of kidney stones, therefore I did recommend that we add CT of the abdomen and pelvis in addition to the chest. This was done and does show pneumonia as suspected. This certainly would explain the hypoxia and the fever. Though the quality of the CT was pretty terrible, does not show any obvious hydronephrosis or ureterolithiasis. I think it is reasonable to treat the pneumonia, culture the urine. I reviewed the prior cultures. The last 1 grew a tiny amount of Enterococcus but she typically grows other pathogens that would also be sensitive to Rocephin. I do recommend we treat this pneumonia with Rocephin and azithromycin. This will be started. She will be given a 500 mL bolus. I spoke with the a bowel hospitalist and they have accepted admission. At this time the patient's aunt says that the patient is in pain. I was busy with other patients and ordered hydrocodone. The nurse tracks me down a few minutes later and tells me that the family declined this, wanting something IV. Dose of IV Dilaudid with Zofran is then ordered prior to transfer to the floor. Vital Signs Vital signs: Initial Vital Signs Temperature 101.0 F H 03/01/25 02:58 Temperature Source Temporal Artery Scan 03/01/25 02:58 Pulse Rate 125 H 03/01/25 02:58 Respiratory Rate 22 03/01/25 02:58 Blood Pressure 115/86 03/01/25 02:58 Blood Pressure Mean 95 03/01/25 02:58 Blood Pressure Position Semi-Fowlers 03/01/25 02:58 Pulse Oximetry 88 03/01/25 02:58 Oxygen Delivery Method Room Air 03/01/25 02:58 Vital Signs Temperature 101.0 F H 03/01/25 02:58 Pulse Rate 125 H 03/01/25 02:58 Respiratory Rate 22 03/01/25 02:58 Blood Pressure 115/86 03/01/25 02:58 Pulse Oximetry 88 03/01/25 02:58 Oxygen Delivery Method Room Air 03/01/25 02:58 Temperature 101.0 F H 03/01/25 02:58 Pulse Rate 117 H 03/01/25 05:15 Respiratory Rate 20 03/01/25 03:05 Blood Pressure 112/86 03/01/25 05:01 Pulse Oximetry 95 03/01/25 05:15 Oxygen Delivery Method Nasal Cannula 03/01/25 05:15 Oxygen Flow Rate 2 03/01/25 05:15 Medications Administered Medications: Discontinued Medications Generic Name Dose Route Start Last Admin Trade Name Freq PRN Reason Stop Dose Admin Albuterol/Ipratropium 1 neb 03/01/25 03:12 03/01/25 03:18 Iprat-Albut 0.5-2.5 Mg/3 Ml Neb IH 03/01/25 03:13 1 neb ONCE ONE Administration Hydromorphone HCl 0.25 mg 03/01/25 06:36 03/01/25 06:47 Hydromorphone 0.5 Mg/0.5 Ml Inj IVP 03/01/25 06:37 0.25 mg ONCE ONE Administration Sodium Chloride 500 mls @ 500 mls/hr 03/01/25 03:14 03/01/25 04:50 0.9 % Sodium Chloride 500 Ml IV 03/01/25 04:13 500 mls/hr .Q1H VAIBHAV Administration Ceftriaxone Sodium 1 gm/ 100 mls @ 200 mls/hr 03/01/25 06:01 03/01/25 06:10 Sodium Chloride IVPB 03/01/25 06:02 200 mls/hr ONCE ONE Administration Azithromycin 500 mg/ Sodium 255 mls @ 255 mls/hr 03/01/25 06:01 03/01/25 07:09 Chloride IVPB 03/01/25 06:02 255 mls/hr ONCE ONE Administration Ondansetron HCl 4 mg 03/01/25 06:36 03/01/25 06:47 Ondansetron 2 Mg/Ml Inj IVP 03/01/25 06:37 4 mg ONCE ONE Administration Medical Decision Making Lab Data Lab results reviewed: Yes I reviewed the patient's lab results Lab results narrative: Does not have overwhelming leukocytosis but does have significant elevation in CRP. Electrolytes look pretty good. Renal function is normal for patient. Liver function looks normal. Urinalysis is suspicious for infection. Prior cultures reviewed. Lactate normal. Labs: Lab Results 03/01/25 03/01/25 03/01/25 Range/Units 03:59 04:00 04:40 WBC 7.89 (4.50-11.00) K/uL RBC 4.74 (4.00-5.20) m/uL Hgb 14.4 (12.0-16.0) gm/dL Hct 43.0 (33.0-51.0) % MCV 91 (80-100) fL MCH 30 (26-34) pg MCHC 34 (32-36) gm/dL RDW Coeff of Kimber 12.5 (11.5-15.5) % Plt Count 125 L (140-440) K/uL Neut % (Auto) 66.9 (42.0-72.0) % Lymph % (Auto) 19.5 L (20-44) % Roberts % (Auto) 12.3 H (0.0-11.0) % Eos % (Auto) 0.0 (0.0-7.0) % Baso % (Auto) 0.3 (0.0-3.0) % Neut # (Auto) 5.28 (1.7-7.0) K/uL Lymph # (Auto) 1.50 (0.90-2.90) K/uL Roberts # (Auto) 1.00 H (0.00-0.90) K/UL Eos # (Auto) 0.00 (0.00-0.50) K/uL Baso # (Auto) 0.02 (0.00-0.30) K/uL Abs Immat Gran (auto) 0.08 (0.00-0.30) K/uL Imm/Tot Granulo (auto) 1.0 % Sodium 136 (135-149) mmol/L Potassium 3.3 L (3.6-5.1) mmol/L Chloride 103 (96-114) mmol/L Carbon Dioxide 24 (20-32) mmol/L Anion Gap 9 (7-15) mEq/L BUN 14 (5-24) mg/dL Creatinine 0.5 (0.5-1.5) mg/dL Estimated Creat Clear 202.20 Estimated GFR 136 ml/min Glucose 109 (60-115) mg/dL Lactate 1.1 (0.5-1.9) mmol/L Calcium 8.7 (8.4-10.6) mg/dL Total Bilirubin 0.5 (0.1-1.5) mg/dL AST 36 H (12-35) U/L ALT 27 (4-35) U/L Alkaline Phosphatase 73 (40-150) U/L C-Reactive Protein 9.0 H (0.5-1.0) mg/dL Total Protein 7.4 (6.0-8.3) g/dL Albumin 3.7 (3.3-5.0) g/dL Lipase 38 (23-300) U/L Procalcitonin 0.05 (<0.50) ng/mL Urine Color Yellow (Yellow) Urine Appearance Slightly Cloudy A (Clear) Urine pH 6.0 (5.0-8.5) Ur Specific Barton 1.020 (1.000-1.030) Urine Protein Trace A (Negative) Urine Glucose (UA) Negative (Negative) Urine Ketones Negative (Negative) Urine Blood 2+ A (Negative) Urine Nitrite Positive A (Negative) Urine Bilirubin Negative (Negative) Urine Urobilinogen 1.0 (0.2-1.0) Ur Leukocyte Esterase 1+ A (Negative) Urine RBC 0-2 (0-2) Urine WBC 10-25 A (0-5) Ur Squamous Epith Cells Few (None-Few) Urine Bacteria Moderate A (None) Urine HCG, Qual Negative (Negative) SARS-CoV-2 (PCR) Negative SARS-CoV-2 (Negative) Influenza Type A (PCR) Negative PCR FLU A (Negative) Influenza Type B (PCR) Negative PCR FLU B (Negative) RSV (PCR) Negative PCR RSV (Negative) Group A Strep DNA NOT DETECTED (Not Detectd) Imaging Data CT Chest/Ab/Pelvis: Attestation: I have reviewed the pertinent imaging results. My impression: Obvious lower lobe pneumonia. Tricky interpretation for the abdomen and pelvis scan, the hardware really obscures things. I was mainly looking to see if there was an obvious hydronephrosis or signs of a stone. While she does have some stones in the kidney, I do not see any ureteral stone or any hydronephrosis that would suggest that this is of concerning pathology. Radiologist's impression: IMPRESSION: 1. There are significant limitations to lack of contrast, motion artifact and streak artifact related to extensive orthopedic hardware. 2. Dense right lower lobe consolidation consistent with pneumonia. 3. Abnormal kidneys. They are low set and probably horseshoe kidneys though the connecting parenchyma at the lower pole is poorly seen. There is bilateral urolithiasis but no definite finding of hydronephrosis or hydroureter. Visualization in this area is significantly limited. There is a Fernandez catheter in the bladder. 4. Visualization elsewhere within the abdomen and pelvis is significantly limited but there is no obvious additional finding. 5. TECHNOLOGY OFFICER shunt catheter appears to be normally located in its course through the chest, abdomen or pelvis. 6. Extensive orthopedic instrumentation of the spine. Chronic neuromuscular changes associated with the osseous structures, especially of the pelvis. Abnormal soft tissue calcification near the left hip is probably calcified fat necrosis. This is not an acute appearing finding Please note that all CT scans at this facility use dose modulation, iterative reconstruction, and/or weight-based dosing when appropriate to reduce radiation dose to as low as reasonably achievable. Dictated by Praful Mohamud MD @ 03/01/2025 6:01:50 AM Discharge Plan Discharge Clinical Impression: Community acquired pneumonia, Acute hypoxic respiratory failure, Complicated urinary tract infection Patient Disposition: Admitted As Inpatient
[2025-03-01 04:03] LABS: Lactate Sepsis w/Reflex* 1.1 mmol/L (0.5-1.9)
[2025-03-01 04:06] LABS: Hematocrit* 43.0 % (33.0-51.0); Hemoglobin* 14.4 gm/dL (12.0-16.0); Immature Granulocytes Abs Auto 0.08 K/uL (0.00-0.30); Immature Granulocytes Pct Auto 1.0 %; Mean Corpuscular HGB Conc 34 gm/dL (32-36); Mean Corpuscular Hemoglobin 30 pg (26-34); Mean Corpuscular Volume 91 fL (80-100); RDW Coefficient of Variation % 12.5 % (11.5-15.5); Red Blood Count* 4.74 m/uL (4.00-5.20); White Blood Count* 7.89 K/uL (4.50-11.00)
[2025-03-01 04:13] LABS: Lymphocytes Absolute Auto 1.50 K/uL (0.90-2.90); Slide Review Reflex No
[2025-03-01 04:26] LABS: Albumin* 3.7 g/dL (3.3-5.0); Chloride* 103 mmol/L (96-114)
[2025-03-01 04:27] LABS: Potassium* 3.3 mmol/L (3.6-5.1); Sodium* 136 mmol/L (135-149)
[2025-03-01 04:29] LABS: Alanine Aminotransferase* 27 U/L (4-35); Aspartate Amino Transferase* 36 U/L (12-35); Blood Urea Nitrogen* 14 mg/dL (5-24); Creatinine* 0.5 mg/dL (0.5-1.5); Est. Creatinine Clearance* 202.20; Estimated Glomerular Filt Rate 136 ml/min
[2025-03-01 04:30] LABS: Alkaline Phosphatase* 73 U/L (40-150); Anion Gap 9 mEq/L (7-15); Bilirubin Total* 0.5 mg/dL (0.1-1.5); Calcium* 8.7 mg/dL (8.4-10.6); Carbon Dioxide* 24 mmol/L (20-32); Glucose* 109 mg/dL (60-115); Total Protein* 7.4 g/dL (6.0-8.3)
[2025-03-01 04:34] LABS: Strep A DNA Probe* NOT DETECTED (Not Detectd)
[2025-03-01 04:46] LABS: Procalcitonin* 0.05 ng/mL (<0.50)
[2025-03-01 04:47] LABS: PCR FLU A Negative PCR FLU A (Negative); PCR FLU B Negative PCR FLU B (Negative); PCR RSV Negative PCR RSV (Negative); SARS PCR* Negative SARS-CoV-2 (Negative)
[2025-03-01 04:48] LABS: Appearance Urine Slightly Cloudy (Clear)
[2025-03-01 04:50] LABS: Ur HCG Qualitative* Negative (Negative)
[2025-03-01] MEDS: 0.9 % SODIUM CHLORIDE 500 ML 500 ML IV (04:50)
--- NOTE | 2025-03-01 04:57 | CRLHL7_ITS ---
For Patients: As a result of the 21st Century Cures Act, medical imaging exams and procedure reports are released immediately into your electronic medical record. You may view this report before your referring provider. If you have questions, please contact your health care provider. INDICATION: Hypoxia. Cough. Hematuria. History of stones. COMPARISON: None TECHNIQUE: CT examination of the chest, abdomen and pelvis was performed without intravenous contrast. Thin section axial images were obtained from the thoracic inlet through the pubic symphysis. Oral contrast was not administered. TECHNICAL NOTE: SUBSTANTIAL LIMITATIONS DUE TO LACK OF CONTRAST, MOTION AND EXTENSIVE STREAK ARTIFACT RELATED TO SPINAL ORTHOPEDIC INSTRUMENTATION. Please note that all CT scans at this facility use dose modulation, iterative reconstruction, and/or weight-based dosing when appropriate to reduce radiation dose to as low as reasonably achievable. FINDINGS: CHEST: Heart size normal. No mediastinal or hilar adenopathy or mass. No pericardial effusion. Relatively dense right lower lobe consolidation consistent with pneumonia. No effusion or pneumothorax. The lungs as visualized elsewhere appear normal. TUBES AND LINES: A presumed RETAIL SALES ASSOCIATE shunt catheter traverses the thorax ending in the peritoneal cavity. ABDOMEN AND PELVIS: Very limited examination. LIVER/BILIARY SYSTEM:The liver is normal in size and configuration given the lack of intravenous contrast. There is no visible focal mass and there is no intra- or extra hepatic biliary ductal dilatation.The gall bladder appears normal. ADRENALS: Normal non-contrast appearance KIDNEYS, URETERS and BLADDER:The kidneys are abnormal but poorly seen. They are low sat and are probably horseshoe kidneys though a connection of the lower pulses poorly seen. There are numerous intrarenal calculi bilaterally but no definite hydronephrosis or hydroureter. There is a Fernandez catheter in the bladder. SPLEEN:Normal non-contrast appearance. PANCREAS: Very poorly seen RETROPERITONEUM and MESENTERY: There is no mass, adenopathy or aortic aneurysm. Extensive streak artifact in this area due to orthopedic instrumentation GASTROINTESTINAL SYSTEM: There is no evidence of diverticulitis, colitis, mechanical obstruction, or appendicitis. The small bowel as visualized appears normal.Colonic fecal retention without mechanical obstruction. PELVIS: Mild free fluid presumably CSF from the RETAIL SALES ASSOCIATE shunt.. OSSEOUS STRUCTURES and ABDOMINAL WALL: No significant abdominal wall abnormality. Extensive postsurgical changes of the spine and evidence of chronic neuromuscular changes. Dense soft tissue calcification adjacent to the left hip is probably calcified fat necrosis. This is not an acute finding OTHER: No free air IMPRESSION: 1. There are significant limitations to lack of contrast, motion artifact and streak artifact related to extensive orthopedic hardware. 2. Dense right lower lobe consolidation consistent with pneumonia. 3. Abnormal kidneys. They are low set and probably horseshoe kidneys though the connecting parenchyma at the lower pole is poorly seen. There is bilateral urolithiasis but no definite finding of hydronephrosis or hydroureter. Visualization in this area is significantly limited. There is a Fernandez catheter in the bladder. 4. Visualization elsewhere within the abdomen and pelvis is significantly limited but there is no obvious additional finding. 5. RETAIL SALES ASSOCIATE shunt catheter appears to be normally located in its course through the chest, abdomen or pelvis. 6. Extensive orthopedic instrumentation of the spine. Chronic neuromuscular changes associated with the osseous structures, especially of the pelvis. Abnormal soft tissue calcification near the left hip is probably calcified fat necrosis. This is not an acute appearing finding Please note that all CT scans at this facility use dose modulation, iterative reconstruction, and/or weight-based dosing when appropriate to reduce radiation dose to as low as reasonably achievable. Dictated by Praful Mohamud MD @ 03/01/2025 6:01:50 AM (Electronically Signed)
[2025-03-01] MEDS: cefTRIAXone 1 GM in 0.9 % SODIUM CHLORIDE Mini-bag 100 ML IVPB (06:10)
[2025-03-01] MEDS: ONDANSETRON 2 MG/ML inj 4 MG IVP (06:47)
[2025-03-01] MEDS: AZITHROMYCIN 500 MG in 0.9 % SODIUM CHLORIDE 250 ml 250 ML 255 MG IVPB (07:09)
[2025-03-01] MEDS: HYDROCODONE-ACETAMIN 5-325 MG 1 TAB PO (07:51)
--- NOTE | 2025-03-01 08:14 | PM.IMHP1 ---
Assessment and Plan Assessment and plan (1) Complicated urinary tract infection: Status: Acute (2) Acute hypoxic respiratory failure: Status: Acute (3) Community acquired pneumonia: Status: Acute (4) Fever: Status: Acute (5) Paraplegia: Problem comment: -noted. Frequent positional changes, offloading, skin barrier cream as needed Status: Chronic (6) Horseshoe kidney: Problem comment: -CT shows Horseshoe kidney with multiple bilateral renal calculi including prominent staghorn calculus at the left lower pole measuring 2.1 cm Status: Acute (7) Mild intellectual disability: Problem comment: -noted. Care team consists of aunt who lives with her, [facility] care, and a [facility] appointed guardian, Alison Status: Chronic (8) Neurogenic bladder: Problem comment: -noted, complicating above, history of recurrent UTIs -continue oxybutynin -continue straight cath -recommend outpatient follow-up with Urology, consideration for suprapubic catheter if not previously addressed Status: Chronic (9) Spina bifida: Problem comment: -noted Status: Chronic Total Time Spent Total Time Spent: Time spent: Today I spent 75 minutes seeing the patient, discussing the patient with ER staff, reviewing Expanse and EPIC notes/diagnostics, discussing the care plan with our care time that includes social work, PT/OT, pharmacy, RT, custodial and documenting my impressions and plan in the medical record. Hospitalist- H&P: HPI History of Present Illness Date Seen: 03/01/25 Chief complaint: shortness of breath Narrative: Laina Escudero is a 24 year old female Medical Decision Making Medical Decision Making Has patient completed a Health Care Directive: Yes [facility] Medical History Depression ?F32.A - Depression, unspecified (ICD-10) Paraplegia ?G82.20 - Paraplegia, unspecified (ICD-10) Horseshoe kidney ?Q63.1 - Lobulated, fused and horseshoe kidney (ICD-10) Mild intellectual disability ?F70 - Mild intellectual disabilities (ICD-10) Neurogenic bladder ?N31.9 - Neuromuscular dysfunction of bladder, unspecified (ICD-10) COVID-19 ?U07.1 - COVID-19 (ICD-10) Spina bifida ?Q05.9 - Spina bifida, unspecified (ICD-10) Surgical History History of spinal fusion ?Z98.1 - Arthrodesis status (ICD-10) H/O wisdom tooth extraction ?K08.409 - Partial loss of teeth, unspecified cause, unspecified class (ICD-10) Hx of nephrolithotomy with removal of calculi ?Z98.890 - Other specified postprocedural states (ICD-10) ?Z87.442 - Personal history of urinary calculi (ICD-10) S/P BLOW PIT OPERATOR shunt ?Z98.2 - Presence of cerebrospinal fluid drainage device (ICD-10) Family History Father Diabetes Mother Bipolar 1 disorder Social History What is your current living situation?: I presently have a place to live Problems where you live: no known problems Problems where you live details: no known problems In the past 12 months, utilities in danger of being shut off: no In past 12 months, lack of transportation kept you from medical appts, meetings, work, or getting things needed for daily living: no In the past 12 mos, have been you worried that your food would run out before you had money to buy more?: never true In the past 12 mos, the food you bought just didn't last and you didn't have money to buy more?: never true Smoking Status: Never smoker Do you use any of these nicotine containing products: None Second hand tobacco smoke exposure: No How often do you have a drink containing alcohol: never AUDIT-C Alcohol total score: 0 Non-prescribed substance use: denies use Caffeine: Yes (Coffee) How often does anyone, including family, friends and others, physically hurt you: never How often does anyone, including family, friends and others, insult or talk down to you: never How often does anyone, including family, friends and others, threaten you with harm: never How often does anyone, including family, friends and others, scream or curse at you: never service: No Meds Home Medications and Allergies Home Medications ?Medication ?Instructions ?Recorded ?Confirmed ?Type oxybutynin chloride 5 mg tablet 5 mg PO BID 07/21/22 03/01/25 History indapamide 1.25 mg tablet 1.25 mg PO QAM 10/31/23 03/01/25 History potassium chloride 10 mEq 10 meq PO BID 10/31/23 03/01/25 History tablet,extended release(part/cryst) ondansetron 4 mg disintegrating 4 mg PO Q8H PRN nausea and 07/19/24 Rx tablet vomiting #10 tabs acetohydroxamic acid 250 mg tablet 250 mg PO Q8H 03/01/25 03/01/25 History (Lithostat) sulfamethoxazole 800 tab PO 03/01/25 History mg-trimethoprim 160 mg tablet Allergies Allergy/AdvReac Type Severity Reaction Status Date / Time ibuprofen Allergy Intermediate 1 Kidney Verified 08/03/24 22:05 vancomycin Allergy Intermediate Swapnil Verified 08/03/24 22:05 Syndrome latex Allergy Mild Rash Verified 08/03/24 22:05 Exam Narrative: Exam Narrative: Physical exam GENERAL: Comfortable, no acute distress. HEAD AND NECK: Atraumatic, normocephalic CARDIOVASCULAR: RRR. Normal S1, S2. No murmurs. RESPIRATORY: Clear to auscultation B/L. Good air entry B/L. GASTROINTESTINAL: Not distended, not tender to palpation. NEUROLOGY: Alert, awake PSYCH: Normal mood, normal affect. Const: Vital Signs, click to edit/add: Vital Signs - 24 hr 03/01/25 02:58 03/01/25 03:04 03/01/25 03:05 Temperature 101.0 F H Pulse Rate Pulse Rate [Pulse Oximeter] 125 H Respiratory Rate 22 20 Blood Pressure Blood Pressure [Le ft Forearm] 115/86 Pulse Oximetry 88 88 94 Oxygen Delivery Me thod Room Air Room Air Nasal Cannula Oxygen Flow Rate 2 03/01/25 03:12 03/01/25 03:12 03/01/25 03:13 Temperature Pulse Rate 116 H 125 H Pulse Rate [Pulse Oximeter] Respiratory Rate Blood Pressure 115/68 Blood Pressure [Le ft Forearm] Pulse Oximetry 95 93 93 Oxygen Delivery Me thod Nasal Cannula Nasal Cannula Nasal Cannula Oxygen Flow Rate 2 2 2 03/01/25 03:15 03/01/25 03:16 03/01/25 03:31 Temperature Pulse Rate 124 H 124 H 129 H Pulse Rate [Pulse Oximeter] Respiratory Rate Blood Pressure 130/93 H Blood Pressure [Le ft Forearm] Pulse Oximetry 94 94 93 Oxygen Delivery Me thod Nasal Cannula Nasal Cannula Nasal Cannula Oxygen Flow Rate 2 2 2 03/01/25 04:03 03/01/25 04:15 03/01/25 04:30 Temperature Pulse Rate 126 H 116 H 124 H Pulse Rate [Pulse Oximeter] Respiratory Rate Blood Pressure Blood Pressure [Le ft Forearm] Pulse Oximetry 93 90 94 Oxygen Delivery Me thod Nasal Cannula Nasal Cannula Nasal Cannula Oxygen Flow Rate 2 2 2 03/01/25 04:45 03/01/25 04:49 03/01/25 05:00 Temperature Pulse Rate 118 H 126 H 121 H Pulse Rate [Pulse Oximeter] Respiratory Rate Blood Pressure 116/78 Blood Pressure [Le ft Forearm] Pulse Oximetry 89 96 94 Oxygen Delivery Me thod Nasal Cannula Nasal Cannula Nasal Cannula Oxygen Flow Rate 2 2 2 03/01/25 05:01 03/01/25 05:15 Temperature Pulse Rate 116 H 117 H Pulse Rate [Pulse Oximeter] Respiratory Rate Blood Pressure 112/86 Blood Pressure [Le ft Forearm] Pulse Oximetry 94 95 Oxygen Delivery Me thod Nasal Cannula Nasal Cannula Oxygen Flow Rate 2 2 Hospitalist - H&P: Result Labs Labs: Short CBC 03/01/25 Range/Units 03:59 WBC 7.89 (4.50-11.00) K/uL Hgb 14.4 (12.0-16.0) gm/dL Hct 43.0 (33.0-51.0) % Plt Count 125 L (140-440) K/uL BMP 03/01/25 03:59 Sodium 136 Potassium 3.3 L Chloride 103 Carbon Dioxide 24 BUN 14 Creatinine 0.5 Glucose 109 Calcium 8.7 Liver Function 03/01/25 Range/Units 03:59 Total Bilirubin 0.5 (0.1-1.5) mg/dL AST 36 H (12-35) U/L ALT 27 (4-35) U/L Alkaline Phosphatase 73 (40-150) U/L Albumin 3.7 (3.3-5.0) g/dL Urine 03/01/25 Range/Units 04:40 Urine Color Yellow (Yellow) Urine Appearance Slightly Cloudy A (Clear) Urine pH 6.0 (5.0-8.5) Ur Specific [place] 1.020 (1.000-1.030) Urine Protein Trace A (Negative) Urine Glucose (UA) Negative (Negative)
--- NOTE | 2025-03-01 08:57 | W.PM.THH&P_ITS ---
Telehealth- H&P: HPI History of Present Illness Time Seen by Provider: 08:00 Date Seen: 03/01/25 Chief complaint: shortness of breath Narrative: Laina Escudero is seen as an Interactive Telehealth visit. The patient is a 24-year-old female with T10 paraplegia, spina bifida and neurogenic bladder. She has neurogenic bladder and self catheterizes at home. She eats a regular diet and does not have a colostomy. She gets around in a electric wheelchair. According to the patient and a family member present, the patient has had poor appetite of late and was in the emergency room 2 days prior to this admission due to a fever. Chest x-ray was negative. COVID RSV and influenza were negative. UA was not done. She was given Tylenol and discharged home. She return to the emergency room early this morning complaining of ongoing fever as well as weakness and cough. Temperature was 101.0 ?F heart rate 125 respiratory 22 blood pressure 115/86 oxygen saturation 88% on room air 94% on 2 L nasal cannula. On exam coarse upper airway sounds noted but no w heezing rales or rhonchi heard. Labs showed white count 7.9 hemoglobin 14.4 g platelets 125,000 chemistries normal except potassium 3.3. CRP 9.0 procalcitonin 0.05. UA showed 1+ leukocyte esterase 10-25 white cells moderate bacteria. Repeat COVID flu and RSV testing was negative. CT chest abdomen and pelvis without contrast showed: Dense right lower lobe consolidation consistent with pneumonia Abnormal kidneys likely horseshoe kidneys STRICKLER ATTENDANT shunt catheter normally located Extensive orthopedic instrumentation of the spine In the emergency room the patient received a DuoNeb, 500 mL normal saline, 1 g ceftriaxone, 500 mg azithromycin, [place], IV hydromorphone and Zofran. She is now admitted to a medical unit with a diagnosis of pneumonia. According to the patient she is having a lot of what sounds like pleuritic chest pain although she seems to be localizing and on the left side of her chest while the infiltrates on the right side. She is not having much sputum production. According to her family member, her appetites been poor recently she has been somewhat nauseated. No one has noted any coughing after eating. She says she has never had pneumonia before. Review of Systems Status of ROS: Reports: 10 or more systems reviewed and unremarkable except as noted in History and below PFSH PFSH Medical History Depression ?F32.A - Depression, unspecified (ICD-10) Paraplegia ?G82.20 - Paraplegia, unspecified (ICD-10) Horseshoe kidney ?Q63.1 - Lobulated, fused and horseshoe kidney (ICD-10) Mild intellectual disability ?F70 - Mild intellectual disabilities (ICD-10) Neurogenic bladder ?N31.9 - Neuromuscular dysfunction of bladder, unspecified (ICD-10) COVID-19 ?U07.1 - COVID-19 (ICD-10) Spina bifida ?Q05.9 - Spina bifida, unspecified (ICD-10) Surgical History History of spinal fusion ?Z98.1 - Arthrodesis status (ICD-10) H/O wisdom tooth extraction ?K08.409 - Partial loss of teeth, unspecified cause, unspecified class (ICD- 10) Hx of nephrolithotomy with removal of calculi ?Z98.890 - Other specified postprocedural states (ICD-10) ?Z87.442 - Personal history of urinary calculi (ICD-10) S/P STRICKLER ATTENDANT shunt ?Z98.2 - Presence of cerebrospinal fluid drainage device (ICD-10) Family History Father Diabetes Mother Bipolar 1 disorder Social History What is your current living situation?: I presently have a place to live Problems where you live: no known problems Problems where you live details: no known problems In the past 12 months, utilities in danger of being shut off: no In past 12 months, lack of transportation kept you from medical appts, meetings, work, or getting things needed for daily living: no In the past 12 mos, have been you worried that your food would run out before you had money to buy more?: never true In the past 12 mos, the food you bought just didn't last and you didn't have money to buy more?: never true Smoking Status: Never smoker Do you use any of these nicotine containing products: None Second hand tobacco smoke exposure: No How often do you have a drink containing alcohol: never AUDIT-C Alcohol total score: 0 Non-prescribed substance use: denies use Caffeine: Yes (Coffee) How often does anyone, including family, friends and others, physically hurt you : never How often does anyone, including family, friends and others, insult or talk down to you: never How often does anyone, including family, friends and others, threaten you with harm: never How often does anyone, including family, friends and others, scream or curse at you: never service: No Meds Home Medications and Allergies Home Medications ?Medication ?Instructions ?Recorded ?Confirmed ?Type oxybutynin chloride 5 mg tablet 5 mg PO BID 07/21/22 1 History indapamide 1.25 mg tablet 1.25 mg PO QAM 10/31/2312/17 History potassium chloride 10 mEq 10 meq PO BID 10/31/2303/01 History tablet,extended release(part/cryst) ondansetron 4 mg disintegrating 4 mg PO Q8H PRN nausea and 07/19/24 Rx tablet vomiting #10 tabs acetohydroxamic acid 250 mg tablet 250 mg PO Q8H 03/0103/01/25 History (Lithostat) sulfamethoxazole 800 tab PO 03/01/25 History mg-trimethoprim 160 mg tablet Allergies Allergy/AdvReac Type Severity Reaction Status Date / Time ibuprofen Allergy Intermediate 1 Kidney Verified 08/03/24 22:05 vancomycin Allergy Intermediate Swapnil Verified 08/03/24 22:05 Syndrome latex Allergy Mild Rash Verified 08/03/24 22:05 Exam Narrative Exam Narrative: Physical Exam GENERAL: ?vital signs reviewed, well developed and nourished, she appears to be in pain from her pleurisy HEART: Regular rate and rhythm without any rubs, murmurs, or gallops. LUNGS: no wheezing raales or rhonchi heard but she was making vocalizations during the exam ABDOMEN: Observation from nurse assisted exam, abdomen appears soft, nontender, and nondistended with Positive bowel sounds noted. EXTREMITIES: no edema SKIN:? Observed warm and dry with color normal NEURO: Awake alert with difficult understand speech. She can move both upper extremities but has no strength in the lower extremities Const Vital Signs, click to edit/add: Vital Signs - 24 hr 03/01/25 02:58 03/01/25 03:04 03/01/25 03:05 Temperature 101.0 F H Pulse Rate Pulse Rate [Pulse Oximeter] 125 H Respiratory Rate 22 20 Blood Pressure Blood Pressure [Left Forearm] 115/86 Pulse Oximetry 88 88 94 Oxygen Delivery Method Room Air Room Air Nasal Cannula Oxygen Flow Rate 2 03/01/25 03:12 03/01/25 03:12 03/01/25 03:13 Temperature Pulse Rate 116 H 125 H Pulse Rate [Pulse Oximeter] Respiratory Rate Blood Pressure 115/68 Blood Pressure [Left Forearm] Pulse Oximetry 95 93 93 Oxygen Delivery Method Nasal Cannula Nasal Cannula Nasal Cannula Oxygen Flow Rate 2 2 2 03/01/25 03:15 03/01/25 03:16 03/01/25 03:31 Temperature Pulse Rate 124 H 124 H 129 H Pulse Rate [Pulse Oximeter] Respiratory Rate Blood Pressure 130/93 H Blood Pressure [Left Forearm] Pulse Oximetry 94 94 93 Oxygen Delivery Method Nasal Cannula Nasal Cannula Nasal Cannula Oxygen Flow Rate 2 2 2 03/01/25 04:03 03/01/25 04:15 03/01/25 04:30 Temperature Pulse Rate 126 H 116 H 124 H Pulse Rate [Pulse Oximeter] Respiratory Rate Blood Pressure Blood Pressure [Left Forearm] Pulse Oximetry 93 90 94 Oxygen Delivery Method Nasal Cannula Nasal Cannula Nasal Cannula Oxygen Flow Rate 2 2 2 03/01/25 04:45 03/01/25 04:49 03/01/25 05:00 Temperature Pulse Rate 118 H 126 H 121 H Pulse Rate [Pulse Oximeter] Respiratory Rate Blood Pressure 116/78 Blood Pressure [Left Forearm] Pulse Oximetry 89 96 94 Oxygen Delivery Method Nasal Cannula Nasal Cannula Nasal Cannula Oxygen Flow Rate 2 2 2 03/01/25 05:01 03/01/25 05:15 Temperature Pulse Rate 116 H 117 H Pulse Rate [Pulse Oximeter] Respiratory Rate Blood Pressure 112/86 Blood Pressure [Left Forearm] Pulse Oximetry 94 95 Oxygen Delivery Method Nasal Cannula Nasal Cannula Oxygen Flow Rate 2 2 Hospitalist - H&P: Result Labs Labs: Short CBC 03/01/25 Range/Units 03:59 WBC 7.89 (4.50-11.00) K/uL Hgb 14.4 (12.0-16.0) gm/dL Hct 43.0 (33.0-51.0) % Plt Count 125 L (140-440) K/uL BMP 03/01/25 03:59 Sodium 136 Potassium 3.3 L Chloride 103 Carbon Dioxide 24 BUN 14 Creatinine 0.5 Glucose 109 Calcium 8.7 Liver Function 03/01/25 Range/Units 03:59 Total Bilirubin 0.5 (0.1-1.5) mg/dL AST 36 H (12-35) U/L ALT 27 (4-35) U/L Alkaline Phosphatase 73 (40-150) U/L Albumin 3.7 (3.3-5.0) g/dL Urine 03/01/25 Range/Units 04:40 Urine Color Yellow (Yellow) Urine Appearance Slightly Cloudy A (Clear) Urine pH 6.0 (5.0-8.5) Ur Specific [place] 1.020 (1.000-1.030) Urine Protein Trace A (Negative) Urine Glucose (UA) Negative (Negative) Assessment and Plan Assessment and plan (1) Aspiration pneumonia: Status: Acute (2) Acute hypoxic respiratory failure: Status: Acute (3) Complicated urinary tract infection: Status: Acute (4) Paraplegia: Problem comment: -noted. Frequent positional changes, offloading, skin barrier cream as needed Status: Chronic (5) Horseshoe kidney: Problem comment: -CT shows Horseshoe kidney with multiple bilateral renal calculi including prominent staghorn calculus at the left lower pole measuring 2.1 cm Status: Acute (6) Mild intellectual disability: Problem comment: -noted. Care team consists of aunt who lives with her, [facility], and a [facility] appointed guardian, Alison Status: Chronic (7) Neurogenic bladder: Problem comment: -noted, complicating above, history of recurrent UTIs -continue oxybutynin -continue straight cath -recommend outpatient follow-up with Urology, consideration for suprapubic catheter if not previously addressed Status: Chronic (8) Hypokalemia: Problem comment: -initial potassium 2.3, improving with oral replacement/supplementation -Continue home 10 mEq b.i.d.. - Give additional 25 mEq potassium bicarbonate x1 today, recheck in am 12/8 K 3.7 Status: Resolved (9) Thrombocytopenia: Status: Acute Plan The patient is a 24-year-old woman with T10 paraplegia and neurogenic bladder. She self catheterizes. She is on a regular texture diet at home and does not have a colostomy. For the past few days she has had fever and then cough and shortness of breath. On February 27 she was evaluated in the emergency room had a negative chest x-ray and was discharged home. She presented to the emergency room early this morning with persistent fever cough pleuritic type chest pain and shortness of breath. In the emergency room her temperature was 101 ?F. White blood cell count and procalcitonin were normal although CRP was 9. CT of the chest abdomen and pelvis without contrast showed a dense right lower lobe infiltrate. She also had mild thrombocytopenia and hypokalemia on lab testing. She was placed on 2 L nasal cannula due to her oxygen saturation being 88% on room air. In the emergency room she received a DuoNeb, ceftriaxone, azithromycin, [place], Dilaudid, Zofran and 500 mL of normal saline. She is now admitted to the medical unit. (Suspected) Aspiration pneumonia RLL Hypoxic acute respiratory failure She has no known history of aspiration, but I suspect that this is an aspiration pneumonia. She also appears to be having a lot of pleuritic pain. * Admit to inpatient * Continue oxygen by nasal cannula * Start IV Zosyn and continue azithromycin * Scheduled DuoNebs and pulmonary toilet e.g. flutter valve * Analgesics for pleurisy as needed * Repeat labs tomorrow * Speech consult Suspected dysphagia * Pur?ed diet for now * Speech consult Possible urinary tract infection Neurogenic bladder * Continue antibiotic as for pneumonia * Follow-up urine culture * Continue Fernandez catheter which was placed in the emergency room Mild thrombocytopenia (125K) Could be due to her acute infection. * Continue to monitor Hypokalemia Horseshoe kidney * Creatinine and eGFR normal. * Replace and monitor potassium History of T10 paraplegia, neurogenic bladder, spina bifida Mild intellectual disability FEN * Normal saline * Replace K * Puree diet VTE prophylaxis * SCDs and enoxaparin * Monitor platelet count Telehealth Visit: Todays History and Physical is via interactive telehealth by Steve Holder MD. The Patient is located at [facility] in [facility]. Physician is located at [facility]. Nursing staff assisted in the patient's exam. The visit being done today meets criteria for a telehealth visit and the patient or patient's parent/guardian is aware the visit is a telehealth visit. Camera Start time 0817 Camera End time 0831 Total Time Spent Total Time Spent: 75 min Telehealth: Statement Statement Telehealth Visit: Today's History and Physical is provided via interactive telehealth by Steve Holder MD.? Patient is located at [facility].? Provider is located at [facility] Nursing staff assisted with the patient's exam. The visit being done today meets criteria for a telehealth visit and the patient or patient?s parent/guardian is aware the visit is a telehealth visit. Camera Start Time: 08:17 Camera End Time: 08:31
[2025-03-01] MEDS: ACETYLCYSTEINE 200 MG/ML soln 600 MG NEB ×3 (09:51→21:10)
--- NOTE | 2025-03-01 10:05 | PC.SOCIAL ---
Addendum entered by KINA Presley 03/01/25 16:36: Discharge planning: supervisor machine workers spoke to the pt's guardian, Tanisha Flowers #[phone], who shared that the pt owns her own home and has a CADI waiver that supplies her with 24/7 care(medication administration, straight catheterization, personal cares, etc.) at her home(per the pt's CADI waiver supportive employment case manager the staff that work overnight are able to sleep and do not need to be awake). The home care agency that services the pt is [facility]. The RN that works with the pt is Daksha Sears #[phone]. supervisor machine workers gave this information to the charge nurse on duty. supervisor machine workers also notified the charge nurse on duty that the pt's guardian had mentioned that there have been increasing concerns of the pt getting pressure sores on her back recently and this was brought up to the pt's PCP at her last appointment and the PCP made a referral to [facility] [place] to help address this. The pt actually has an appointment this the that the guardian says she can reschedule if the pt will still be in the hospital. supervisor machine workers plans to check-in with the guardian again tomorrow morning after rounds. Social work to follow-up as needed. Original Note: Discharge planning: supervisor machine workers left a message with pt's guardian, Tanisha Flowers #[phone], notifying her that the pt is in the hospital. It does state in the H&P that the guardian is aware of the pt's telehealth H&P visit. supervisor machine workers left this worker's contact information and asked for a call back. Social work to follow-up as needed.
[2025-03-01] MEDS: POTASSIUM BICARB 25 MEQ EFFERVESCENT TAB PO ×3 (10:47→15:17)
[2025-03-01] MEDS: INDAPAMIDE 2.5 MG TABLET 1.25 MG PO (10:47)
[2025-03-01] MEDS: ACETAMINOPHEN 325 MG TABLET PO ×2 (10:48→17:36)
[2025-03-01] MEDS: SENNOSIDES/DOCUSATE TABLET 1 TAB PO (10:48)
[2025-03-01] MEDS: SODIUM CHLORIDE 0.9 % (FLUSH) 10 ML SYRINGE 5 ML IVF ×2 (10:48→21:13)
[2025-03-01] MEDS: POTASSIUM CHLORIDE 10 MEQ CAPSULE ER PO ×2 (10:54→21:09)
[2025-03-01] MEDS: PIPERACILLIN/TAZOBACTAM 3.375 GM in 0.9 % SODIUM CHLORIDE Mini-bag 100 ML IVPB ×3 (11:38→23:15)
[2025-03-01] MEDS: 5 % DEXTROSE/0.9% SOD CHLORIDE 1,000 ML 75 ML IV (11:41)
--- NOTE | 2025-03-01 14:01 | PC.SOCIAL ---
Social work consult: public health worker met with the pt in the ED to share resources. 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 Pt states that she needs to take some time off of work for her mental health and PTSD. Pt states that she needs the FMLA paperwork filled out by this Friday or she is going to lose her job at the [employer]. Pt was frustrated that she could not come into the ED and have the FMLA paperwork filled out, so the hospital's Patient Advocate was also involved in this case. After talking with the pt more and finding out that she has [employer] for her primary insurance, the ASPHALT PAVER OPERATOR in the ED was able to get the pt an appointment this the at 9:00am at [facility] with Dr. Jduge. Pt plans to talk to Dr. Judge about getting her FMLA paperwork filled out and also plans to establish and continue care with him as her PCP. public health worker plans to call over to Dr. Judge and/or his nurse to give them some background information about the pt before her appointment on . This social research assistant and the patient advocate also provided the pt with many resources in and around [facility]. By then end of the session, the pt was feeling more hopeful and was pleased with the plan. public health worker also provided the pt with this worker's contact information if she has more questions or concerns in the future. Social work to follow-up as needed.
--- NOTE | 2025-03-01 16:02 | RESP.RT ---
Patient has been weaned to room air and SATing 90%. Patient is awake and able to keep SATs above 90% while sitting up and interactive.
[2025-03-01] MEDS: [UNRECOGNIZED DRUG - OTHER] PO (17:30)
[2025-03-01 17:32] LABS: Potassium* 4.7 mmol/L (3.6-5.1)
--- NOTE | 2025-03-01 19:18 | PC.NURSE ---
End of Shift: Cooperative. T-max 101.0, gave PRN tylenol, see MAR. Tachycardic this shift, MD aware, no new orders at this time. All other VSS. SpO2 maintained above 88% on RA. Ceiling lift for transfers. Regular diet, low appetite noted. 2 wounds on her back and bottom, covered with mepilex this shift. Turn and repo as tolerated. Fernandez catheter patent and draining.
[2025-03-01] MEDS: ENOXAPARIN 40 MG/0.4 ML INJ SUBCUT (21:13)
[2025-03-02] VITALS (9 sets, daily range): BP systolic 108–121; BP diastolic 39–76; PULSE 79–96; RESP 18–24; TEMP 36.8–37.7; O2SAT 91–94; BMI 38.5
[2025-03-02] MEDS: 5 % DEXTROSE/0.9% SOD CHLORIDE 1,000 ML 75 ML IV (01:14)
[2025-03-02] MEDS: [UNRECOGNIZED DRUG - OTHER] PO ×3 (02:17→17:24)
[2025-03-02] MEDS: ACETYLCYSTEINE 200 MG/ML soln 600 MG NEB ×4 (02:18→20:41)
--- NOTE | 2025-03-02 04:15 | PC.NURSE ---
Addendum entered by Denny Farias RN 03/02/25 06:04: O2 level has been fluctuating from 93 to below 88%. 1L of oxygen set up 0530. Original Note: Shift note: Patient is alert and oriented. Patient continue to remain in bed per condition. Refused turning and reposition. Continue to have intermittent cough which responded well with Neb Acetylcysteine. Patient had low grade fever as high as 100.1. Takes pills well with water. No choking episode experienced. Patient had adequate sleep. Fernandez intact and draining clear urine. Due treatment given as prescribed. Home healthcare sales process manager has been in the room with patient throughout the night.
[2025-03-02] MEDS: PIPERACILLIN/TAZOBACTAM 3.375 GM in 0.9 % SODIUM CHLORIDE Mini-bag 100 ML IVPB ×4 (05:11→23:05)
[2025-03-02] MEDS: IPRAT-ALBUT 0.5-2.5 MG/3 ML NEB 1 NEB IH ×4 (05:14→23:10)
[2025-03-02] MEDS: AZITHROMYCIN 500 MG in 0.9 % SODIUM CHLORIDE 250 ml 250 ML 255 MG IVPB (06:51)
[2025-03-02 06:54] LABS: HCO3 VBG 25 mmol/L (21-28); Lactate* 0.9 mmol/L (0.5-1.9); PCO2 VBG 36 mmHG (40-50); PO2 VBG 59.5 mmHG (25-47); pH VBG 7.448 (7.32-7.43)
[2025-03-02 07:04] LABS: Hematocrit* 35.3 % (33.0-51.0); Hemoglobin* 11.5 gm/dL (12.0-16.0); Immature Granulocytes Abs Auto 0.03 K/uL (0.00-0.30); Immature Granulocytes Pct Auto 0.6 %; Lymphocytes Absolute Auto 1.95 K/uL (0.90-2.90); Mean Corpuscular HGB Conc 33 gm/dL (32-36); Mean Corpuscular Hemoglobin 30 pg (26-34); Mean Corpuscular Volume 93 fL (80-100); RDW Coefficient of Variation % 13.0 % (11.5-15.5); Red Blood Count* 3.79 m/uL (4.00-5.20); White Blood Count* 5.00 K/uL (4.50-11.00)
[2025-03-02 07:17] LABS: Slide Review Reflex Yes
[2025-03-02 07:26] LABS: Albumin* 2.9 g/dL (3.3-5.0); Chloride* 106 mmol/L (96-114); Potassium* 3.8 mmol/L (3.6-5.1); Sodium* 136 mmol/L (135-149)
[2025-03-02 07:28] LABS: Blood Urea Nitrogen* 11 mg/dL (5-24); Creatinine* 0.6 mg/dL (0.5-1.5); Est. Creatinine Clearance* 201.21; Estimated Glomerular Filt Rate 130 ml/min
[2025-03-02 07:29] LABS: Alanine Aminotransferase* 19 U/L (4-35); Alkaline Phosphatase* 54 U/L (40-150); Anion Gap 4 mEq/L (7-15); Aspartate Amino Transferase* 24 U/L (12-35); Bilirubin Total* 0.4 mg/dL (0.1-1.5); Carbon Dioxide* 26 mmol/L (20-32); Total Protein* 6.0 g/dL (6.0-8.3)
[2025-03-02 07:30] LABS: Calcium* 7.7 mg/dL (8.4-10.6); Glucose* 99 mg/dL (60-115)
[2025-03-02 07:45] LABS: Procalcitonin* 0.07 ng/mL (<0.50)
[2025-03-02 08:22] LABS: Slide Review Acceptable Review (Acceptable)
--- NOTE | 2025-03-02 09:01 | P.IMPN_ITS ---
Assessment and Plan Assessment and plan (1) Aspiration pneumonia: Problem comment: - presumed given RLL location - on Zosyn + Azithromycin (03/01/25) - negative triple swab, Legionella, and Strep P antigens - APAP for fever, RT following Status: Acute (2) Acute hypoxic respiratory failure: Problem comment: - requiring up to 2L of supplemental oxygen by [place] for hypoxia - still having thick cough on 03/02/25; will trial high flow for humidity to help loosen secretions - also on acetylcysteine nebs - noted to have respiratory alkalosis on VBG 03/02/25: continue to control fever, monitor RR, + pulmonary hygiene Status: Acute (3) Complicated urinary tract infection: Problem comment: - history of recurrent UTI, was placed on Bactrim in the outpatient setting 02/25/25, UA in ER was + - current urine culture (collected 03/01) exhibits NGTD - on Lithostat as outpatient Status: Acute (4) Neurogenic bladder: Problem comment: - noted, complicating above, history of recurrent UTIs - continue oxybutynin - nicole placed in ER 03/01/25 Status: Chronic (5) Paraplegia: Problem comment: - noted, spina bifida. Frequent positional changes, offloading, skin barrier cream as needed - will be seeing PM&R through [facility] system in outpatient f/u per Yashira Garay Status: Chronic (6) Hypokalemia: Problem comment: - admission K of 3.3 on 03/01/25 - normal at 3.8 on 03/02/25, will continue home K supplementation Status: Resolved (7) Thrombocytopenia: Problem comment: - unclear chronicity (first noted in our system 04/2024), no evidence of acute bleeding - outpatient f/u Status: Acute (8) Horseshoe kidney: Problem comment: - noted on imaging with urolithiasis (no hydronephrosis or hydroureter), on Indapamide Status: Acute (9) Mild intellectual disability: Problem comment: - noted. Care team consists of aunt who lives with her, [facility] care 16/12, and a [facility] appointed guardianTanisha Status: Chronic Plan - per above (IV abx, oxygen, pulmonary hygiene) - home when tolerating RA and afebrile, in addition to negative BCx results - aunt updated bedside and guardian Tanisha updated by phone, questions answered Subjective Date Seen: 03/02/25 Interval history: Laina was admitted to the hospital on 03/01 for acute hypoxic respiratory failure in the setting of RLL pneumonia. Placed on Zosyn and Azithromycin (03/01), seen by Speech Therapy with safe swallow strategies recommended. Comorbidities include spina bifida, status post NAME PLATE STAMPER shunt; neurogenic bladder requiring catheterization at home; recurrent kidney stones; horseshoe kidney; recurrent UTIs. In 2021, hospitalized for urosepsis and required intubation. Recent clinical history: Had been seen in the outpatient setting and given an Rx for Bactrim on 02/25/25 for presumed UTI (I cannot see UA or culture in outside records). Seen in ER on 02/27/25 for fever; triple swab and CXR negative at that time. Re-presented to ER on 03/01 for persistent fever and new hypoxia; imaging c/w PNA and she was admitted. Blood and urine cultures currently NGTD. This morning, Laina continues to have an intermittent cough. Tolerating po intake. Alternates between low dose supplemental oxygen requirement and RA. Nicole in place, + UOP. TMax overnight 100.1 Exam Narrative: Exam Narrative: GEN: Sitting up in, having breakfast, nontoxic HEENT: EOMIs bilaterally, no scleral icterus CV: RRR (rate in the 90s during my exam), No concerning murmurs, rubs, or gallops R: LCTA bilaterally without concerning wheezing, + R sided rales Skin: No concerning skin lesions or rashes on exposed skin Neuro: Appropriate Psych: Appropriate Const: Vital Signs, click to edit/add: Vital Signs - 24 hr 03/01/25 10:48 03/01/25 11:15 03/01/25 15:00 Temperature 101.0 F H 100.8 F H 100.2 F H Pulse Rate [Pulse Oximeter] 119 H 92 Respiratory Rate 18 18 Blood Pressure [Ri ght Arm] 123/82 120/80 Pulse Oximetry 95 92 Oxygen Delivery Me thod Nasal Cannula Room Air Oxygen Flow Rate 1 03/01/25 15:00 03/01/25 15:00 03/01/25 19:00 Temperature 100.1 F H Pulse Rate [Pulse Oximeter] 92 101 H Respiratory Rate 18 18 18 Blood Pressure [Ri ght Arm] 94/74 Pulse Oximetry 92 91 Oxygen Delivery Me thod Room Air Room Air Oxygen Flow Rate 03/01/25 23:00 03/01/25 23:00 03/01/25 23:00 Temperature 100.1 F H Pulse Rate [Pulse Oximeter] 94 94 Respiratory Rate 18 18 18 Blood Pressure [[facility]] 104/70 Pulse Oximetry 91 91 Oxygen Delivery Me thod Room Air Room Air Oxygen Flow Rate 03/02/25 02:26 03/02/25 08:23 03/02/25 08:28 Temperature 99.8 F H 99.8 F H Pulse Rate [Pulse Oximeter] 85 94 Respiratory Rate 18 22 22 Blood Pressure [[facility] Arm] 114/67 121/63 Pulse Oximetry 93 91 91 Oxygen Delivery Me thod Room Air Nasal Cannula Nasal Cannula Oxygen Flow Rate 1 1 Labs Labs: Laboratory Results - last 24 hr 03/01/25 03/02/25 17:07 06:31 WBC 5.00 RBC 3.79 L Hgb 11.5 L Hct 35.3 MCV 93 MCH 30 MCHC 33 RDW Coeff of Kimber 13.0 Plt Count 107 L Neut % (Auto) 47.2 Lymph % (Auto) 39.0 [place] % (Auto) 12.6 H Eos % (Auto) 0.2 Baso % (Auto) 0.4 Neut # (Auto) 2.36 Lymph # (Auto) 1.95 [place] # (Auto) 0.60 Eos # (Auto) 0.01 Baso # (Auto) 0.02 Abs Immat Gran (auto) 0.03 Imm/Tot Granulo (auto) 0.6 Diff Slide Review Acceptable Review VBG pH 7.448 H VBG pCO2 36 L VBG pO2 59.5 H VBG HCO3 25 Sodium 136 Potassium 4.7 3.8 Chloride 106 Carbon Dioxide 26 Anion Gap 4 L BUN 11 Creatinine 0.6 Estimated Creat Clear 201.21 Estimated GFR 130 Glucose 99 Lactate 0.9 Calcium 7.7 L Magnesium 1.8 Total Bilirubin 0.4 AST 24 ALT 19 Alkaline Phosphatase 54 C-Reactive Protein 14.1 H Total Protein 6.0 Albumin 2.9 L Procalcitonin 0.07
[2025-03-02] MEDS: LACTATED RINGERS 1000 ML 1,000 ML 125 ML IV ×2 (09:56→17:24)
[2025-03-02] MEDS: POTASSIUM CHLORIDE 10 MEQ CAPSULE ER PO ×2 (09:57→20:43)
[2025-03-02] MEDS: SENNOSIDES/DOCUSATE TABLET 1 TAB PO (09:57)
[2025-03-02] MEDS: INDAPAMIDE 2.5 MG TABLET 1.25 MG PO (09:58)
[2025-03-02] MEDS: SODIUM CHLORIDE 0.9 % (FLUSH) 10 ML SYRINGE 5 ML IVF (10:00)
--- NOTE | 2025-03-02 10:38 | W.PC.NUTR.HO ---
Hospital Nutrition Assessment Patient Data Patient Gender: Female Patient Age: 24 Height: 4 ft 11 in Weight: 191 lb 1 oz Body Mass Index: 38.5 Weight Calculations [place] Body Weight (lbs): 95.00 [place] Body Weight (kg): 43.09 Percent of [place] Body Weight: 201 Adjusted Body Weight (lbs): 119.02 Adjusted Body Weight (kg): 53.99 Basal Energy Expenditure (BEE): 1658.24 Basal Energy Expenditure (BEE) Adjusted Weight: 1345.78 Activity/Stress Factors Injury Factor/Activity Factor Value: 1.0 Total Energy Requirements Kcal requirements (current wt): 1658.240 Kcal requirements (adj wt): 1345.780 Protein Need (current wt): 1.2 Total Protein (current wt): 103.997 Protein Need (adj wt): 1.2 Total Protein (adj wt): 64.788 Fluid Need (current wt): 30 Total Fluid (current wt): 2599.935 Fluid Need (adj wt): 30 Total Fluid (adj wt): 1619.70 Nutrition Assessment Diet Order: Regular Food Modified for Dysphagia: 7-Regular Liquid Modified for Dysphagia: 0-Thin Allergies: NKFA Appetite Prior to Admission: Poor Appetite and Intake: Intakes since admit at 0-25%. Hx Appetite Changes: Yes (Poor appetite lately per MD documentation related to fever ) Hx Weight Loss: No Hx Weight Gain: Yes Nausea: No Vomiting: No Diarrhea: No Hx Constipation: No Chewing Difficulty: No Swallowing Difficulty: No (Speech Evaluation 03/01 for concerns for dysphagia) Pressure Ulcer: Yes Comments: Per nursing documentation: -Ulceration on left buttock, unknown stage -Ulceration on lower back, reddened area Clinical History: Medical history includes but not limited to spina bifida, paraplegia, mild intellectual disability, neurogenic bladder, depression, and GERD. Current Living Situation: Lives at home alone with 16/12 care. Has guardian. Medications Medications: reviewed. Lab Results Lab Results: reviewed. Education Topic Comment: Offered diet education related to low appetite and wound healing, patient declined at this time. Assessment/Plan PES Statement: Inadequate oral intake related to fever and low appetite as evidenced by 0-25% intake since admit. Nutritional Assessment Summary: RDN with nutrition screen related to positive skin risk and low oral intakes. Patient with minimal intakes since admit. Visited with patient and she reports low appetite for about 1 week now. Offered oral nutrition supplements such as premier protein and Ensure, and Cleve for wound healing. Patient declined these at this time. Informed patient she can ask staff for these when she desires. Weight history indicates recent weight gain of about 40 lbs within 5 months. No weight loss noted or reported by patient. No nutrition interventions at this time due to patient declining. Of note, MD is attempting transfer due to family desire. Discharge Plan-Living Situation: TBD Goals: Adequate oral intakes of 50%+. Plan/Recommendation: Regular diet per MD order and Speech Therapist recommendations. Can offer oral nutrition supplements if patient desires. No nutrition interventions at this time. RDN will continue to monitor and follow-up prn.
[2025-03-02 11:57] LABS: S pneumo Ag Urine S. pneumo Negative (Negative)
--- NOTE | 2025-03-02 14:51 | PC.NURSE ---
Shift Summary: Patient pleasant and cooperative. bedbound at baseline, encouraged T&R throughout shift however patient mostly refused, able to sit upright per self, encouraged to change head of bed height and shift side to side to offload. x2 mepilex on bottom, checked this morning and appeared C/D/I. Attempted to place patient on hiflow for humidity however patient unable to tolerate for long periods of time. Poor appetite, stated nebs make food taste funny, encouraged oral care before meals and after nebs. Jim patent. T-max during shift 99.9, improved with removing sheets and encouraging oral intake.
--- NOTE | 2025-03-02 16:19 | PC.NURSE ---
High flow not in use per patient's request. Nasal Canula in place 1L
--- NOTE | 2025-03-02 17:34 | PC.NURSE ---
High Flow not in use as per patient's request. Regular NC at [address]
[2025-03-02] MEDS: ENOXAPARIN 40 MG/0.4 ML INJ SUBCUT (20:41)
--- NOTE | 2025-03-02 22:42 | PC.NURSE ---
High flow stopped per patient's request.
--- NOTE | 2025-03-02 23:59 | PC.NURSE ---
Patient was cooperative throughout shift. Mepilex changed on coccyx and left upper buttock (open sore noted). VSS. Afebrile. Patient moves ceiling lift. Folley in place. Call light within reach.
[2025-03-03] VITALS (9 sets, daily range): BP systolic 96–135; BP diastolic 40–76; PULSE 56–86; RESP 18–22; TEMP 36.4–36.8; O2SAT 91–94
--- NOTE | 2025-03-03 00:10 | PC.NURSE ---
Add on: Patient declined repositioning throughout shift. Education provided.
[2025-03-03] MEDS: [UNRECOGNIZED DRUG - OTHER] PO ×3 (00:24→16:51)
[2025-03-03] MEDS: ACETYLCYSTEINE 200 MG/ML soln 600 MG NEB ×4 (03:32→20:34)
[2025-03-03] MEDS: LACTATED RINGERS 1000 ML 1,000 ML 125 ML IV ×2 (03:36→15:05)
[2025-03-03] MEDS: IPRAT-ALBUT 0.5-2.5 MG/3 ML NEB 1 NEB IH ×4 (05:42→23:13)
[2025-03-03] MEDS: PIPERACILLIN/TAZOBACTAM 3.375 GM in 0.9 % SODIUM CHLORIDE Mini-bag 100 ML IVPB ×4 (05:42→23:13)
--- NOTE | 2025-03-03 05:50 | PC.NURSE ---
Shift Note : Pt refusing T&R despite multiple attempts. Pt was educated on skin breakdown and pressure ulcer prevention. She still verbalized she would like to lay on her back. Pt did allow turning to place a sling beneath her for accurate bed weight. VS WNL and LS coarse. Scheduled duo-nebs given as well as Azithromycin and Zosyn. Fernandez patent and draining. Pt in semi-pettit to high pettit's positions and encouraged TCDB, she is making effort do this when prompted.
[2025-03-03 06:00] LABS: HCO3 VBG 24 mmol/L (21-28); Ionized Calcium* 1.15 mmol/L (1.11-1.30); PCO2 VBG 40 mmHG (40-50); PO2 VBG 40.5 mmHG (25-47); pH VBG 7.392 (7.32-7.43)
[2025-03-03 06:07] LABS: Hematocrit* 35.6 % (33.0-51.0); Hemoglobin* 11.6 gm/dL (12.0-16.0); Immature Granulocytes Abs Auto 0.04 K/uL (0.00-0.30); Immature Granulocytes Pct Auto 0.8 %; Lymphocytes Absolute Auto 2.20 K/uL (0.90-2.90); Mean Corpuscular HGB Conc 33 gm/dL (32-36); Mean Corpuscular Hemoglobin 31 pg (26-34); Mean Corpuscular Volume 94 fL (80-100); RDW Coefficient of Variation % 13.0 % (11.5-15.5); Red Blood Count* 3.80 m/uL (4.00-5.20); White Blood Count* 5.01 K/uL (4.50-11.00)
[2025-03-03 06:10] LABS: Slide Review Reflex No
[2025-03-03 06:17] LABS: Albumin* 3.0 g/dL (3.3-5.0); Chloride* 106 mmol/L (96-114); Potassium* 4.1 mmol/L (3.6-5.1); Sodium* 137 mmol/L (135-149)
[2025-03-03 06:19] LABS: Blood Urea Nitrogen* 9 mg/dL (5-24); Creatinine* 0.5 mg/dL (0.5-1.5); Est. Creatinine Clearance* 231.90; Estimated Glomerular Filt Rate 136 ml/min
[2025-03-03 06:20] LABS: Alanine Aminotransferase* 22 U/L (4-35); Alkaline Phosphatase* 57 U/L (40-150); Anion Gap 6 mEq/L (7-15); Aspartate Amino Transferase* 21 U/L (12-35); Bilirubin Total* 0.5 mg/dL (0.1-1.5); Carbon Dioxide* 25 mmol/L (20-32); Total Protein* 6.2 g/dL (6.0-8.3)
[2025-03-03 06:21] LABS: Calcium* 8.4 mg/dL (8.4-10.6); Glucose* 81 mg/dL (60-115)
[2025-03-03] MEDS: AZITHROMYCIN 500 MG in 0.9 % SODIUM CHLORIDE 250 ml 250 ML 255 MG IVPB (06:47)
[2025-03-03] MEDS: POTASSIUM CHLORIDE 10 MEQ CAPSULE ER PO ×2 (08:47→20:32)
[2025-03-03] MEDS: SENNOSIDES/DOCUSATE TABLET 1 TAB PO (08:48)
[2025-03-03] MEDS: INDAPAMIDE 2.5 MG TABLET 1.25 MG PO (08:48)
--- NOTE | 2025-03-03 09:20 | P.IMPN_ITS ---
Assessment and Plan Assessment and plan (1) Acute hypoxic respiratory failure: Problem comment: - requiring up to 2L of supplemental oxygen by [place] for hypoxia - still having thick cough on 03/02/25; will trial high flow for humidity to help loosen secretions - also on acetylcysteine nebs - noted to have respiratory alkalosis on VBG 03/02/25: continue to control fever, monitor RR, + pulmonary hygiene; VBG normalized 03/03/25 Status: Acute (2) Aspiration pneumonia: Problem comment: - presumed given RLL location - on Zosyn + Azithromycin (03/01/25) - negative triple swab, Legionella, and Strep P antigens, negative MRSA screen - APAP for fever, RT following Status: Acute (3) Complicated urinary tract infection: Problem comment: - history of recurrent UTI, was placed on Bactrim in the outpatient setting 02/25/25, UA in ER was + but no growth on urine culture collected 03/01/25 - on Lithostat as outpatient Status: Acute (4) Neurogenic bladder: Problem comment: - noted, complicating above, history of recurrent UTIs - continue oxybutynin - nicole placed in ER 03/01/25 Status: Chronic (5) Paraplegia: Problem comment: - noted, spina bifida. Frequent positional changes, offloading, skin barrier cream as needed - will be seeing PM&R through [facility] system in outpatient f/u per Yashira Garay - needs HS enemas for bowel regimen Status: Chronic (6) Hypokalemia: Problem comment: - admission K of 3.3 on 03/01/25 --> normalized 03/02/25 - continue home K supplementation Status: Resolved (7) Thrombocytopenia: Problem comment: - unclear chronicity (first noted in our system 04/2024), no evidence of acute bleeding - outpatient f/u Status: Acute (8) Horseshoe kidney: Problem comment: - noted on imaging with urolithiasis (no hydronephrosis or hydroureter), on Indapamide Status: Acute (9) Mild intellectual disability: Problem comment: - noted. Care team consists of aunt who lives with her, [facility] health care 16/12, and a [facility] guardianTanisha Status: Chronic Plan - per above - home with 16/12 caregivers when stable on RA - Guardian Tanisha updated by phone, questions answered Subjective Date Seen: 03/03/25 Interval history: Laina was admitted to the hospital on 03/01 for acute hypoxic respiratory failure in the setting of RLL pneumonia. Upon admission, Zosyn and Azithromycin initiated (03/01), seen by Speech Therapy with safe swallow strategies recommended, but no significant dietary changes. 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 No evidence of hydronephrosis or hydroureter on admission in ER. In 2021, she was hospitalized for urosepsis and required intubation. Recent clinical history: Had been seen in the outpatient setting and given an Rx for Bactrim on 02/25/25 for presumed UTI (I cannot see UA or culture in outside records). Seen in ER on 02/27/25 for fever; triple swab and CXR negative at that time. Re-presented to ER on 03/01 for persistent fever and new hypoxia; imaging c/w PNA and she was admitted. Blood and urine cultures remain NGTD. This morning, Laina has no concerns for hospitalist team. Continues to require 1-2L of supplemental oxygen per nasal cannula. RT following. Intermittent cough noted. Tolerating po intake (lower than baseline) and low dose IVFs. Nicole in place, + UOP. Afebrile over the past 24 hours. Has not had a BM since admission; typically does nightly enemas at home. Exam Narrative: Exam Narrative: GEN: Alert and sitting up comfortably in bed HEENT: Normal external ears, EOMIs bilaterally, no scleral icterus CV: RRR, No concerning murmurs R: LCTA bilaterally without concerning wheezing, + rhonchi R Skin: No concerning skin lesions or rashes on exposed skin Neuro: Baseline Psych: Appropriate Const: Vital Signs, click to edit/add: Vital Signs - 24 hr 03/02/25 10:28 03/02/25 11:00 03/02/25 15:00 Temperature 99.5 F Pulse Rate [Pulse Oximeter] 96 Respiratory Rate 24 22 Blood Pressure [Ri ght Arm] 108/62 Pulse Oximetry 91 93 Oxygen Delivery Me thod High Flow Nasal Ca nnula Nasal Cannula Oxygen Flow Rate 20 1 Fraction of Inspir ed Oxygen 21 21 03/02/25 15:00 03/02/25 15:00 03/02/25 19:00 Temperature 99.8 F H 98.9 F Pulse Rate [Pulse Oximeter] 94 94 91 Respiratory Rate 22 22 Blood Pressure [Ri ght Arm] 111/76 116/70 Pulse Oximetry 93 94 Oxygen Delivery Me thod Nasal Cannula Nasal Cannula Oxygen Flow Rate 1 1 Fraction of Inspir ed Oxygen 03/02/25 23:00 03/02/25 23:00 03/02/25 23:00 Temperature 98.3 F Pulse Rate [Pulse Oximeter] 79 79 Respiratory Rate 22 22 Blood Pressure [Ri ght Arm] 114/39 L Pulse Oximetry 93 93 Oxygen Delivery Me thod Nasal Cannula Nasal Cannula Oxygen Flow Rate 1 1 Fraction of Inspir ed Oxygen 03/03/25 03:00 03/03/25 07:00 03/03/25 07:00 Temperature 98.3 F 98.1 F Pulse Rate [Pulse Oximeter] 59 L 86 Respiratory Rate 22 20 Blood Pressure [Ri ght Arm] 96/40 L 112/76 Pulse Oximetry 91 93 93 Oxygen Delivery Me thod Nasal Cannula Nasal Cannula Nasal Cannula Oxygen Flow Rate 1 1 1 Fraction of Inspir ed Oxygen 03/03/25 08:00 Temperature Pulse Rate [Pulse Oximeter] Respiratory Rate Blood Pressure [Ri ght Arm] Pulse Oximetry 93 Oxygen Delivery Me thod Oxygen Flow Rate Fraction of Inspir ed Oxygen Labs Labs: Laboratory Results - last 24 hr 03/01/25 03/02/25 03/03/25 04:40 11:17 05:53 WBC 5.01 RBC 3.80 L Hgb 11.6 L Hct 35.6 MCV 94 MCH 31 MCHC 33 RDW Coeff of Kimber 13.0 Plt Count 106 L Neut % (Auto) 43.3 Lymph % (Auto) 43.9 [place] % (Auto) 10.6 Eos % (Auto) 0.8 Baso % (Auto) 0.6 Neut # (Auto) 2.17 Lymph # (Auto) 2.20 [place] # (Auto) 0.50 Eos # (Auto) 0.04 Baso # (Auto) 0.03 Abs Immat Gran (auto) 0.04 Imm/Tot Granulo (auto) 0.8 VBG pH 7.392 VBG pCO2 40 VBG pO2 40.5 VBG HCO3 24 Sodium 137 Potassium 4.1 Chloride 106 Carbon Dioxide 25 Anion Gap 6 L BUN 9 Creatinine 0.5 Estimated Creat Clear 231.90 Estimated GFR 136 Glucose 81 Calcium 8.4 Ionized Calcium [place] 1.15 Total Bilirubin 0.5 AST 21 ALT 22 Alkaline Phosphatase 57 C-Reactive Protein 7.2 H Total Protein 6.2 Albumin 3.0 L Urine L. pneumophilia Ag L. pneumo Negative Urine Strep pneumoniae Ag S. pneumo Negative Lab Acknowledgement Test Added
--- NOTE | 2025-03-03 10:14 | CRLHL7_ITS ---
For Patients: As a result of the Century Cures Act, medical imaging exams and procedure reports are released immediately into your electronic medical record. You may view this report before your referring provider. If you have questions, please contact your health care provider. Indication: FOLLOW UP PNEUMONIA Technique: AP view of the chest. Comparison: 03/01/2025, 02/27/2025. Findings: Low lung volumes. Normal cardiomediastinal silhouette. Diffuse interstitial prominence. Moderate right lower lobe airspace opacity. Partial visualization of thoracolumbar spinal fusion hardware. Impression: 1. Moderate right lower lobe opacity is again seen, which is compatible with infection. 2. Diffuse interstitial prominence may relate to low lung volumes or represent mild fluid overload. Dictated by Omar Harvey MD @ 03/03/2025 12:44:59 PM (Electronically Signed)
--- NOTE | 2025-03-03 14:29 | PC.SOCIAL ---
Discharge planning: drafting layout worker left a message for pt's guardian, Tanisha Marlow #[phone], to ask about transportation for the pt when she discharges from the hospital, which the provider on duty states will most likely be tomorrow 03/04/25(Friday). Social work to follow-up as needed.
--- NOTE | 2025-03-03 14:40 | PC.NURSE ---
Progress Note pt behavior appropriate and calm, assist of 2 with bruno. pt is bedbound but refused q2hr repos, sat up in chair with meal. Education about bedsores given, Mepilex dressing to her back changed x2 and are clean dry and intact. pt reapproached throughout shift. VSS on 1l NC, LR running at 125 ml/hr, no complaints of pain or discomfort throughout shift. large BM with brief change during shift. Upper lung sounds clear, crackles in lower lobes. date night caregiver present in the room with patient.
[2025-03-03] MEDS: ENOXAPARIN 40 MG/0.4 ML INJ SUBCUT (20:31)
[2025-03-03] MEDS: SODIUM CHLORIDE 0.9 % (FLUSH) 10 ML SYRINGE 5 ML IVF (20:35)
--- NOTE | 2025-03-03 23:39 | PC.NURSE ---
end of shift: Pt. is AOX4. 1L NC. Pt. verbalizes relief from neb treatments. Turn/ Repositioned. Refused dinner. Left tray in kitchenette. Pt education done on importance of good intake and nutrition. Fernandez catheter in place w/ consistent output. Caregivers present bedside.
[2025-03-04] MEDS: [UNRECOGNIZED DRUG - OTHER] PO ×2 (00:17→09:13)
[2025-03-04] MEDS: ACETYLCYSTEINE 200 MG/ML soln 600 MG NEB ×2 (03:08→09:12)
[2025-03-04 03:13] VITALS: BP 120/58; PULSE 60; RESP 18; TEMP 36.2; O2SAT 96
[2025-03-04] MEDS: PIPERACILLIN/TAZOBACTAM 3.375 GM in 0.9 % SODIUM CHLORIDE Mini-bag 100 ML IVPB ×2 (05:05→11:33)
[2025-03-04] MEDS: IPRAT-ALBUT 0.5-2.5 MG/3 ML NEB 1 NEB IH ×2 (05:05→11:33)
[2025-03-04 06:37] LABS: HCO3 VBG 24 mmol/L (21-28); PCO2 VBG 43 mmHG (40-50); PO2 VBG 36.5 mmHG (25-47); pH VBG 7.350 (7.32-7.43)
[2025-03-04 06:41] LABS: Hematocrit* 37.8 % (33.0-51.0); Hemoglobin* 12.0 gm/dL (12.0-16.0); Immature Granulocytes Pct Auto 0.3 %; Mean Corpuscular HGB Conc 32 gm/dL (32-36); Mean Corpuscular Hemoglobin 30 pg (26-34); Mean Corpuscular Volume 95 fL (80-100); RDW Coefficient of Variation % 13.0 % (11.5-15.5); Red Blood Count* 4.00 m/uL (4.00-5.20); White Blood Count* 3.64 K/uL (4.50-11.00)
[2025-03-04 06:48] LABS: Immature Granulocytes Abs Auto 0.00 K/uL (0.00-0.30); Lymphocytes Absolute Auto 1.90 K/uL (0.90-2.90); Slide Review Reflex No
[2025-03-04 06:54] LABS: Chloride* 109 mmol/L (96-114); Potassium* 4.0 mmol/L (3.6-5.1); Sodium* 138 mmol/L (135-149)
[2025-03-04 06:57] LABS: Blood Urea Nitrogen* 7 mg/dL (5-24); Creatinine* 0.5 mg/dL (0.5-1.5); Est. Creatinine Clearance* 234.18; Estimated Glomerular Filt Rate 136 ml/min
[2025-03-04 06:58] LABS: Anion Gap 6 mEq/L (7-15); Calcium* 8.9 mg/dL (8.4-10.6); Carbon Dioxide* 23 mmol/L (20-32); Glucose* 76 mg/dL (60-115)
[2025-03-04 07:00] VITALS: BP 121/96; PULSE 57; RESP 20; TEMP 36.2; O2SAT 92
--- NOTE | 2025-03-04 07:30 | PC.NURSE ---
Pt pleasant, alert and oriented. 1L NC. Lung sounds crackled. Pt stated relief from neb treatments. Educated pt on benefits of repositioning, pt refused, reapproached throughout shift, pt still refused. Saline locked. Fernandez patent and draining. Caregiver at bedside. Pt in bed, appears to be resting, call light within reach.?
[2025-03-04 08:00] VITALS: O2SAT 92
[2025-03-04] MEDS: INDAPAMIDE 2.5 MG TABLET 1.25 MG PO (09:13)
[2025-03-04] MEDS: AZITHROMYCIN 250 MG TABLET 500 MG PO (09:14)
[2025-03-04] MEDS: SENNOSIDES/DOCUSATE TABLET 1 TAB PO (09:15)
[2025-03-04] MEDS: POTASSIUM CHLORIDE 10 MEQ CAPSULE ER PO (09:15)
[2025-03-04] MEDS: SODIUM CHLORIDE 0.9 % (FLUSH) 10 ML SYRINGE 5 ML IVF (09:16)
--- NOTE | 2025-03-04 09:37 | RESP.RT ---
Patient weaned off oxygen and maintaining saturations of 93-95% on room air.
--- NOTE | 2025-03-04 10:23 | PC.SOCIAL ---
Discharge planning: humidifier maintenance worker spoke to the pt's guardian, Tanisha Marlow and the pt's caregiver from [facility], Barbara, this morning and found out that the pt owns a wheelchair accessible van and when she is ready for discharge whichever caregiver from [facility] that is on staff at the time will be able to transport the pt back home. humidifier maintenance worker will call [facility] at #[phone] when a discharge time is known to coordinate a discharge time. Social work to follow-up as needed.
--- NOTE | 2025-03-04 10:29 | PC.SOCIAL ---
Addendum entered by KINA Presley 03/04/25 11:44: Discharge planning: Pt is ready for discharge today and her current volleyball coach that is working, Claudette, will go to the pt's house and get her wheelchair and wheelchair accessible van and come back to pick her up. licensed clinical social worker faxed over the pt's discharge orders and discharge summary to her guardian, Tanisha Marlow, per her request to fax number #[phone], which goes to Tanisha's office at [facility]. Social work to follow-up as needed. Original Note: Discharge planning: licensed clinical social worker spoke to the pt's guardian, Tanisha Marlow and the pt's caregiver from [facility], [facility], this morning and found out that the pt owns a wheelchair accessible van and when she is ready for discharge whichever caregiver from [facility] that is on staff at the time will be able to transport the pt back home. licensed clinical social worker will call [facility] at #[phone] when a discharge date is known to coordinate a discharge time. Social work to follow-up as needed.
--- NOTE | 2025-03-04 10:48 | P.DS_ITS ---
DS: Providers Provider Date Seen: 03/04/25 Date of admission: 03/01/25 07:44 Primary care physician: Heladio Willoughby MD Admitting Clinician: Shala Owen MD Consults: RT, TAX ASSOCIATE ATTORNEY Attending Physician on discharge: Alejandrina Burton MD Date of Discharge: 03/04/25 DS: Diagnosis Discharge Diagnosis (1) Acute hypoxic respiratory failure: Status: Acute Problem details: - 2/2 PNA; required up to 2L of supplemental oxygen by [place] for hypoxia - treated with supplemental oxygen, nebs, antibiotics - noted to have respiratory alkalosis on VBG 03/02/25: controlled fever, and worked on pulmonary hygiene; with normalization of VBG on 03/03/25 - transitioned to RA on 03/04/25 (2) Aspiration pneumonia: Status: Acute Problem details: - presumed aspiration given RLL location (reassuring TAX ASSOCIATE ATTORNEY evaluation); presented with fever, tachycardia, tachypnea - on Zosyn + Azithromycin (03/01/25), will d/c home on thrice daily Amoxicillin to complete 7 day course of abx - negative triple swab, Legionella, and Strep P antigens, negative MRSA screen - RT followed during stay (3) Thrombocytopenia: Status: Acute Problem details: - unclear chronicity (first noted in our system 04/2024), no evidence of acute bleeding - outpatient f/u with PCP (4) Complicated urinary tract infection: Status: Acute Problem details: - history of recurrent UTI, was placed on Bactrim in the outpatient setting 02/25/25, UA in ER was + but no growth on urine culture collected 03/01/25 - on Lithostat as outpatient, continued this (5) Paraplegia: Status: Chronic Problem details: - noted, 2/2 h/o spina bifida. Frequent positional changes, offloading, skin barrier cream as needed - will be seeing PM&R through [facility] system in outpatient f/u per Guardian Tanisha - needs HS enemas for bowel regimen (6) Horseshoe kidney: Status: Acute Problem details: - noted on admission imaging 03/01/25 with urolithiasis (no hydronephrosis or hydroureter), on Indapamide (7) Mild intellectual disability: Status: Chronic Problem details: - noted. Care team consists of aunt who lives with her, [facility] 16/12, and a [facility] appointed guardian, Tanisha (8) Neurogenic bladder: Status: Chronic Problem details: - noted, complicating above, history of recurrent UTIs - continue oxybutynin - nicole placed in ER 03/01/25, will d/c on discharge (patient self-catheterizes at home) DS: Summary Hospital Course Hospital Course: Laina was admitted to the hospital on 03/01 for acute hypoxic respiratory failure in the setting of RLL pneumonia. Upon admission, noted to have a fever and tachycardia, in addition to tachypnea. Zosyn and Azithromycin initiated (03/01), seen by Speech Therapy with safe swallow strategies recommended, but no significant dietary changes. 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 No evidence of hydronephrosis or hydroureter on admission imaging in ER. In 2021, she was hospitalized for urosepsis and required intubation. Prior to hospitalization: Had been seen in the outpatient setting and given an Rx for Bactrim on 02/25/25 for presumed UTI (I cannot see UA or culture in outside records). Seen in ER on 02/27/25 for fever; triple swab and CXR negative at that time. Re-presented to ER on 03/01 for persistent fever and new hypoxia; imaging c/w PNA and she was admitted. Blood and urine cultures remained NGTD during stay. Hospital course: Tolerated antibiotics well. Followed by respiratory therapy and able to taper off of supplemental oxygen to room air. Afebrile for >24H prior to discharge. Comorbidities as noted above remained stable. Known sacral wound was covered with Mepilex, other wounds on back evaluated by nursing staff daily. She has an appointment with PM&R in the future to further assess skin integrity and treatments. Noted to have a new thrombocytopenia without evidence of active bleeding, will have a follow-up CBC with PCP in the outpatient setting. Laina was medically appropriate to discharge home with 16/12 care attendants on 03/04/2025. Status at Discharge Functional status at discharge: wheelchair bound Overall status at discharge: patient is progressing back to baseline Time Spent with Patient Time attestation: Total time spent providing and/or coordinating discharge services: Time spent: Greater than 30 minutes Specific discharge activities: Updates to guardian, medication reconciliation, multidisciplinary team discussion Exam Narrative: Exam Narrative: GEN: Awake and alert, laying comfortably in bed and nontoxic, breathing comfortably HEENT: EOMIs bilaterally, no scleral icterus CV: RRR, No concerning murmurs R: Air movement has improved, no concerning rales or wheezing Ab: Soft and nontender, tolerates exam Skin: No concerning skin lesions or rashes on exposed skin Neuro: Baseline appropriate Psych: Appropriate Const: Vital Signs, click to edit/add: Vital Signs - 24 hr 03/03/25 11:00 03/03/25 15:21 03/03/25 15:21 Temperature 98.1 F Pulse Rate [Pulse Oximeter] 65 57 L Respiratory Rate 18 18 Blood Pressure [Ri ght Arm] 112/70 Pulse Oximetry 91 94 Oxygen Delivery Me thod Room Air Nasal Cannula Oxygen Flow Rate 1 03/03/25 15:22 03/03/25 18:50 03/03/25 23:00 Temperature 98.1 F 98 F Pulse Rate [Pulse Oximeter] 68 79 Respiratory Rate 18 18 Blood Pressure [Ri ght Arm] 113/64 112/57 L Pulse Oximetry 94 93 93 Oxygen Delivery Me thod Nasal Cannula Nasal Cannula Oxygen Flow Rate 1 1 1 03/03/25 23:00 03/03/25 23:39 03/04/25 03:13 Temperature 97.6 F 97.2 F L Pulse Rate [Pulse Oximeter] 56 L 56 L 60 Respiratory Rate 20 20 18 Blood Pressure [Ri ght Arm] 135/69 120/58 L Pulse Oximetry 93 96 Oxygen Delivery Me thod Room Air Room Air Oxygen Flow Rate 03/04/25 07:00 03/04/25 07:00 03/04/25 07:00 Temperature 97.1 F L Pulse Rate [Pulse Oximeter] 57 L 57 L Respiratory Rate 20 Blood Pressure [Ri ght Arm] 121/96 H Pulse Oximetry 92 92 Oxygen Delivery Me thod Room Air Room Air Oxygen Flow Rate 03/04/25 08:00 Temperature Pulse Rate [Pulse Oximeter] Respiratory Rate Blood Pressure [Ri ght Arm] Pulse Oximetry 92 Oxygen Delivery Me thod Oxygen Flow Rate DS: Data Data Completed and Pending Labs on day of discharge: Labs from last 24 hours 03/04/25 06:07 WBC 3.64 L RBC 4.00 Hgb 12.0 Hct 37.8 MCV 95 MCH 30 MCHC 32 RDW Coeff of Kimber 13.0 Plt Count 99 L Neut % (Auto) 36.2 L Lymph % (Auto) 51.1 H [place] % (Auto) 9.6 Eos % (Auto) 2.5 Baso % (Auto) 0.3 Neut # (Auto) 1.30 L Lymph # (Auto) 1.90 [place] # (Auto) 0.30 Eos # (Auto) 0.10 Baso # (Auto) 0.00 Abs Immat Gran (auto) 0.00 Imm/Tot Granulo (auto) 0.3 VBG pH 7.350 VBG pCO2 43 VBG pO2 36.5 VBG HCO3 24 Sodium 138 Potassium 4.0 Chloride 109 Carbon Dioxide 23 Anion Gap 6 L BUN 7 Creatinine 0.5 Estimated Creat Clear 234.18 Estimated GFR 136 Glucose 76 Calcium 8.9 Preliminary micro results at discharge 03/01/25 05:19 Blood Culture - Preliminary Blood NO GROWTH AFTER 72 HOURS 03/01/25 03:59 Blood Culture - Preliminary Blood NO GROWTH AFTER 72 HOURS Discharge Plan Discharge Disposition: Home, Self-Care Date of Admission: 03/01/25 07:44 Attending Provider on Discharge: Alejandrina Burton Primary Care Provider: Ignacia Duran Condition: Improved Anticipated Discharge Date/Time: 03/04/25 10:41 Discharge Medications: New amoxicillin 500 mg tablet 1,000 mg PO Q8H 3 Days Qty: 18 0RF Rx Instructions: 3 more days to complete a full week of antibiotic therapy for PNA Continued oxybutynin chloride 5 mg tablet 5 mg PO BID indapamide 1.25 mg tablet 1.25 mg PO QAM potassium chloride 10 mEq tablet,ER particles/crystals 10 meq PO BID sulfamethoxazole-trimethoprim 800-160 mg tablet PO Lithostat 250 mg tablet 250 mg PO Q8H Rx Instructions: SPECIALTY PHARMACY MEDICATION, PATIENT WILL NEED TO HAVE HOME SUPPLY BROUGHT TO HOSPITAL ondansetron 4 mg tablet,disintegrating 4 mg PO Q8H PRN (Reason: nausea and vomiting) Qty: 10 0RF Discharge Orders: Discharge Order (Routine); Ordered 03/04/25 Ordered By: Alejandrina Burton Additional Instructions: Three more days of antibiotics (pills) sent to [facility]. You should be using your incentive spirometer (clear plastic machine with the tube; breathe in to use it) thrice daily, easiest to schedule with meals. Make sure you have a pulse oximeter at home; goal is oxygen saturation of at least 89% while at rest (up to 93-94% is best, okay to be a little lower while recovering from pneumonia). Oximeter can be checked as needed. If you are having worsening cough, shortness of breath, chest pain, or oxygen saturation <88% that does not improve with rest, you should be seen again urgently. The rest of your home medications and treatment stay the same. Your platelets were a little low while in the hospital (low 100s) - good to have them rechecked in a few weeks with Dr. Willoughby. Activity Level: Activity as Tolerated Discharge Diet: Regular Follow Up Appointments: Heladio Willoughby MD [Referring, Family Practice] Referral Note: Dr. Willoughby's clinic number is [phone]; please call and schedule hospital follow-up. Preferred dates next week: morning of Friday, 03/08 or afternoon of , 03/10. Forms: Patient Belongings, [place] Info Instructions
[2025-03-04 11:00] VITALS: BP 137/86; PULSE 87; RESP 20; TEMP 36.4; O2SAT 91
--- NOTE | 2025-03-04 13:55 | PC.NURSE ---
Patient was pleasant and cooperative throughout shift. VSS. Room Air. Afebrile. Moves ceiling lift. A&Ox4. Mepilex changed on left buttock wound. Patient was discharged to her two home aides.
== END 2025-03-04 13:30 | disposition home or self-care (01) | DRG 177 ==
LOC: ED 06:05 → MEDSURG 07:49
PROVIDERS: Family Medicine; Admitting Provider Internal Medicine; Emergency Provider Family Medicine; PCP Pediatrics; Visit Provider Internal Medicine
DX: J69.0 Pneumonitis due to inhalation of food and vomit (principal); J96.01 Acute respiratory failure with hypoxia; N39.0 Urinary tract infection, site not specified; G82.20 Paraplegia, unspecified; N31.9 Neuromuscular dysfunction of bladder, unspecified; F70 Mild intellectual disabilities; R13.10 Dysphagia, unspecified; F32.A Depression, unspecified; Z87.442 Personal history of urinary calculi; Z99.3 Dependence on wheelchair; E87.6 Hypokalemia; Z87.440 Personal history of urinary (tract) infections; D69.6 Thrombocytopenia, unspecified; L89.329 Pressure ulcer of left buttock, unspecified stage; L89.109 Pressure ulcer of unspecified part of back, unspecified stage; Q63.1 Lobulated, fused and horseshoe kidney; Q05.9 Spina bifida, unspecified; Z98.2 Presence of cerebrospinal fluid drainage device; R50.9 Fever, unspecified; J06.9 Acute upper respiratory infection, unspecified
CPT/HCPCS: 51702; 36415; 71045; 71250; 74176; 80048; 80053; 81001; 81025; 82330; 82803; 83605; 83690; 83735; 84132; 84145; 85025; 86140; 87040; 87081; 87086; 87449; 87631; 87651; 87899; 92610; 94640; 94761; 99284; 99285; A9270; J0456; J0696; J1171; J1650; J2405; J2543; J7030; J7042; J7050; J7120

== ENCOUNTER 2025-03-12 19:25 | Emergency (ER) | payer MEDICARE, MEDICAID, SELFPAY ==
--- OUTSIDE RECORDS SUMMARY | 2025-01-25 10:45 | XMS_ITS | Encounter Summary ---
Author Organization [facility] Address [address] [place] [address] Care Team Providers Care Light Bulb Assembler Name Role Phone Carlos Joyner MD Unavailable [phone] Jadon Murray MD Unavailable [phone] Maru Villagomez RN Unavailable Unavailable Ang Slade MD Unavailable [phone] Carlos Joyner MD Unavailable [phone] Ang Slade MD Unavailable [phone] Lakshmi Wilhelm-C Unavailable [phone] Heladio Willoughby MD Primary Care Provider [phone] Heladio Willoughby MD Unavailable Alissa Perze PA-C Unavailable [phone] Lakshmi Wilhelm-Juan A Unavailable [phone] Aidee Valero PA-C Unavailable [phone] Carlos Joyner MD Unavailable [phone] Reason for Referral * Diagnostic Imaging Ultrasound (Routine) - Authorized Specialty Diagnoses / Procedures Referred By Contabran t Referred To Contact Radiology. Diagnoses Recurrent UTI Kidney stone Procedures US Renal Complete Non-Vascular Carlos Joyner MD [address] [place] [address] Phone: tel: fax: Referral ID Status Reason Start Date Expiration Date V isits Requested Visits Authorized [id number] Authorized 01/25/2025 01/25/2026 1 1 * Diagnostic Imaging XR (Routine) - Authorized Specialty Diagnoses / Procedures Referred By Contac t Referred To Contact Radiology. Diagnoses Recurrent UTI Kidney stone Procedures XR Abdomen 2 Views Carlos Joyner MD [address] [place] [address] Phone: tel: fax: Referral ID Status Reason Start Date Expiration Date V isits Requested Visits Authorized [id number] Authorized 01/25/2025 01/25/2026 1 1 Reason for Visit * Reason Comments RECHECK Encounter Details Date Type Department Care Team (Late st Contact Info) Description 01/25/2025 10:45 AM CDT Virtual Visit [facility] [address] [place] [phone] Carlos Joyner MD [address] [place] [address] [phone] Recurrent UTI (Primary Dx); Kidney stone Social [...] than three times a week 07/16/2024 Attends [facility] Not on file 07/16 Active Member of Clubs or Organizations Not on f ile 07/16/2024 Attends Club or Organization Meetings Not on antelmo e 07/16/2024 Marital Status Not on file 07/16/2024 PHQ-2 Answer Date Recorded PHQ-2 Score 0 09/13/2024 [facility]at [facility] [...] location): Off-site Platform used for Video Visit: [facility] UROLOGY OUTPATIENT VISIT CHIEF COMPLAINT Kidney Stones [...] results for input(s): PTHI in the last 36550 hours. HGB A1C RESULTS: No results found [...] EXAM: CT ABDOMEN PELVIS W/O CONTRAST LOCATION: [facility] DATE: 01/18/2025 INDICATION: Bilateral nephrolithiasis [...] 01/25/2025 10:45 AM CDT Current patient location: [address] [place] [address] Is the patient currently in the state of [place]? YES Visit mode: VIDEO If the visit is dropped, the patient can be reconnected by:VIDEO VISIT: Text to cell phone: Telephone Information: [employer] # - [phone] Will anyone else be joining the visit? YES: How would they like to receive their invitation? Text to cell phone: [employer] # - [phone] (If patient encounters technical issues they should call [phone]) Are changes needed to the allergy or medication list? Pt stated no med changes Are refills needed on medications prescribed by this physician? Discuss with provider Rooming Documentation: Not applicable Reason for visit: RECHECK Claudia Barron VVF Pts legal guardian completed check in. documented in this encounter Plan of Treatment Upcoming Encounters Date Type Department Care Team (Late st Contact Info) Description 03/23/2025 12:45 PM CDT Appointment [facility] [address] [facility] [address] [place] [phone] [place] [address] [place] [address] 03/23/2025 1:30 PM CDT Hospital Encounter [facility] [address] [facility] [address] [place] [address] [place] [address] [place] [address] 03/25/2025 10:20 AM CDT Virtual Visit [facility] [place] [address] [facility] [address] [place] [address] [place] [address] [place] [address] 04/04/2025 12:00 PM WEBBING INSPECTOR Office Visit [facility] [address] [phone] Sugey Mccoy, OPTION TRADER [address] 988854 05/05/2025 9:00 AM WEBBING INSPECTOR Office Visit [facility] [address] [place] [phone] Jadon Floyd MD [address] [place] [address] 205895 05/30/2025 10:20 AM WEBBING INSPECTOR Appointment [facility] [address] [facility] [address] [place] [phone] Carlos Joyner MD [address] [place] [address] 05/31/2025 2:00 PM WEBBING INSPECTOR Virtual Visit [facility] [address] 4th [place] [address] Carlos Joyner MD [address] [place] [address] 368695 07/25/2025 11:00 AM WEBBING INSPECTOR Office Visit [facility] [address] [place] [address] [place] [address] [place] [address] Scheduled Orders Name Type Priority [...] 11:26 AM CDT 02/21/2025 11:27 AM CDT Carlso Joyner MD LAB - BLOOD ORDERABLES Fin al Result Performing Organization Address City/[facility] Co de Phone Number [facility] [address] (acquired by [employer] in 2014) Lab (1st floor, no room number) [place] [phone] * Reticulocyte count (02/21/2025 11:26 AM CDT) % Reticulocyte 1.82 0.50 - 2.00 % 02/21/2025 12:13 PM CDT [facility] Absolute Reticulocyte 0.0865 0.0250 - 0.0950 10e6/uL 02/21/2025 12:13 PM CDT [facility] Blood STRUCTURE OF RIGHT UPPER LIMB / Unknown Venipuncture / Unknown 02/21/2025 11:26 AM CDT 02/21/2025 11:27 AM CDT Carlos Joyner MD LAB - BLOOD ORDERABLES Fin al Result [facility] [address] (acquired by [employer] in 2014) Lab (1st floor, no room number) [place] [address] * (ABNORMAL) Basic metabolic panel (Ca, Cl, [...] 12:21 PM CDT LABORATORY Comment:eGFR calculated usin 2020 CKD-EPI equation. Calcium 9.2 8.8 - 10.4 mg/dL 02/21/2025 12:21 PM CDT LABORATORY Glucose 91 70 - 99 mg/dL 02/21/2025 12:21 PM CDT LABORATORY Blood STRUCTURE OF RIGHT UPPER LIMB / Unknown Venipuncture / Unknown 02/21/2025 11:26 AM CDT 02/21/2025 11:27 AM CDT us Carlos Joyner MD LAB - BLOOD ORDERABLES Fin al Result Performing Organization Address City/State/[facility] Co de Phone Number LABORATORY [facility] Acute Care Lab [address] Lab (1st floor, no room number) [place] [address], [facility] documented in this encounter Visit Diagnoses Diagnosis Recurrent UTI- Primary Urinary tract infection, site not specified Kidney stone Calculus of kidney documented in this encounter Care Teams Light Bulb Assembler Relationship Specialty Start [place] [address] [facility] [place] [address] PCP - General 03/05/23 Carlos Joyner MD [address] [place] [address] Urology 12/09/19 Jadon Murray MD [facility] 2530 [facility] 550 [place] [address] Referring Physician Pediatric Surgery 12/09/19 Maru Villagomez, OTILIO Registered Nurse 12/10/19 Ang Slade MD 420 [facility] 394 [place], [place] 0947[address] Urology 04/24/20 Carlos Joyner MD [address] [place] [address] 580745 Assigned Surgical Provider 12/24/20 Ang Slade MD 420 [facility] 394 [place], [place] 931665 Urology 12/18/22 Lakshmi Wilhelm PA-C [address] [place] [address] 551205 Physician Booster Assembler Urology 02/03/23 [place] [address] [place] [address] Assigned PCP 02/06/23 Alissa Perez PA-C [address] [place] [address] Physician Booster Assembler Surgery 09/04/23 Lakshmi Wilhelm PA-C [address] [place] [address] Physician Booster Assembler Urology 09/16/23 Aidee Valero PA-C 9 [place] [address] Assigned Musculoskeletal Provider 04/17/24 02/14/25 Carlos Joyner MD 9 [place] [address] Urology 01/26/25 Tanisha Marlow 4120 [facility] [address] 03/30/24 documented as of this encounter
--- OUTSIDE RECORDS SUMMARY | 2025-01-28 09:30 | XMS_ITS | Encounter Summary ---
Author Organization [place] Address [address] [place] [address]. [place] [address] Care Team Providers Care Printed Circuit Board Pcb Designer Name Role Phone Carlos oJyner MD Unavailable [phone] Jadon Murray MD Unavailable [phone] Maru Villagomez RN Unavailable Unavailable Ang Slade MD Unavailable [phone] Carlos Joyner MD Unavailable [phone] Ang Slade MD Unavailable [phone] Lakshmi Wilhelm-C Unavailable [phone] Heladio Willoughby MD Primary Care Provider [phone] Heladio Willoughby MD Unavailable Alissa Perez PA-C Unavailable [phone] Lakshmi Wilhelm-C Unavailable [phone] Aidee Valero PA-C Unavailable [phone] Carlos Joyner MD Unavailable [phone] Reason for Visit * Reason Comments Follow Up Encounter Details Date Type Department Care Team (Late st Contact Info) Description 01/28/2025 9:30 AM CDT Office Visit [facility] [address] [place] [address] [place] [address] [place] [address] Visit for wound check (Primary Dx); Pressure [...] Answer Date Recorded PHQ-2 Score 0 09/13/2024 [facility] of Occupat ional Health - Occupational [...] physical, earlier as needed Heladio Willoughby MD [facility] 01/28/2025 Yared Marina is a [...] Hx of injury several years ago at [place] when her wheelchair tipped and she braced [...] ROM. TTP diffusely over dorsal wrist. SKIN: [id number] wound with exposed dermis appreciated in left [...] Info) Description 03/23/2025 12:45 PM CDT Appointment [facility] [address] [place] [address] [address] [place] [address] Cayden Bejarano MD [address] [place] [address] [address] [place] [address] 03/23/2025 1:30 PM CDT Hospital Encounter [facility] [address] [facility] [address] [place] [address] Cayden Bejarano MD [address] [place], [place] [address]A[address] [place] [address] 03/25/2025 10:20 AM CDT Virtual Visit [facility] [place] [address] [place] [address] [address] [place] [address] Cayden Bejarano MD [address] [place] [address] [address] [place] [address] 04/04/2025 12:00 PM MANAGEMENT PROFESSIONAL Office Visit [facility] [address] [address] Sugey Mccoy, TELEPRINTER INSTALLER [address] [address] 05/05/2025 9:00 AM MANAGEMENT PROFESSIONAL Office Visit [facility] [address] [place] [address] Jadon Floyd MD [address] [place] [address] 05/30/2025 10:20 AM MANAGEMENT PROFESSIONAL Appointment [facility] [address] [place] [address] Carlos Joyner MD [address] [place] [address] 05/31/2025 2:00 PM MANAGEMENT PROFESSIONAL Virtual Visit [facility] [address] [place] [address] Carlos Joyner MD [address] [place] [address] 07/25/2025 11:00 AM MANAGEMENT PROFESSIONAL Office Visit [facility] [address] [place] [phone] [place] [address] [place], [place] 99234[address] documented as of this encounter Visit Diagnoses Diagnosis Visit for wound check- Primary Encounter for other specified aftercare Pressure injury of back, stage 2 (H) Paraplegia (H) Paraplegia Right wrist pain Pain in joint, forearm documented in this encounter Care Teams Printed Circuit Board Pcb Designer Relationship Specialty Start [place] [address] [place], [place] [phone] PCP - General 03/05/23 Carlos Joyner MD [address] [place] [address] Urology 12/09/19 Jadon Murray MD [facility] [address] [facility] [address] [place] [address] Referring Physician Pediatric Surgery 12/09/19 Maru Villagomez, RN Registered Nurse 12/10/19 Ang Slade MD 420 [facility] 394 [place], [place] 2209[address] Urology 04/24/20 Carlos Joyner MD [address] [place] [address] 974205 Assigned Surgical Provider 12/24/20 Ang Slade MD 420 [facility] 394 [place], [place] 4476[address] Urology 12/18/22 Lakshmi Wilhelm PA-C [address] [place] [address] Physician Plater Production Urology 02/03/23 [place] [address] [place] [address] Assigned PCP 02/06/23 Alissa Perez PA-C [address] [place] [address] Physician Plater Production Surgery 09/04/23 Lakshmi Wilhelm PA-C [address] [place] [address] Physician Plater Production Urology 09/16/23 Aidee Valero PA-C 909 [place] [address] Assigned Musculoskeletal Provider 04/17/24 02/14/25 Carlos Joyner MD 909 [place] [address] Urology 01/26/25 Tanisha Marlow [facility] [address] 03/30/24 documented as of this encounter
--- OUTSIDE RECORDS SUMMARY | 2025-02-01 10:00 | XMS_ITS | Encounter Summary ---
Author Organization [facility] Address [address] [place] [address] Care Team Providers Care Plate Glass Installer Name Role Phone Carlos Joyner MD Unavailable + [phone] Jadon Murray MD Unavailable [phone] Maru Villagomez RN Unavailable Unavailable Ang Slade MD Unavailable [phone] Carlos Joyner MD Unavailable + [phone] Ang Slade MD Unavailable [phone] Lakshmi Wilhelm-C Unavailable [phone] Heladio Willoughby MD Primary Care Provider [phone] Heladio Willoughby MD Unavailable Alissa Perez PA-C Unavailable [phone] [facility] PA-[facility] Unavailable [phone] Aidee Valero PA-C Unavailable [phone] Carlos Joyner MD Unavailable [phone] Jadon Floyd MD Unavailable [phone] Reason for Referral * Occupational Therapy (Routine: Next available opening) - Pending Review Specialty Diagnoses / Procedures Referred By Contabran t Referred To Contact Diagnoses Right wrist pain 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[place] [address] [place] [address] Phone: tel: fax: Referral ID Status Reason Start Date Expiration Date V isits Requested Visits Authorized [id number] Pending Review 02/01/2025 02/01/2026 1 1 Question Answer Course of Action: Evaluation and Treatment Specialty Services: Hand Therapy Service: Evaluate and Treat Patient Scheduling Instructions: [employer] will call you to coordinate your care as prescribed by your provider. If you don't hear from a loss prevention representative within 2 business days, please call . Additional Information: mold custom splint as well Comments Please be aware that coverage of these services is subject to the terms and limitations of your health insurance plan. Call member services at your health plan with any benefit or coverage questions. [employer] will call you to coordinate your care as prescribed by your provider. If you don't hear from a loss prevention representative within 2 business days, please call . * Diagnostic Imaging MRI (Routine) - Authorized Specialty Diagnoses / Procedures Referred By Charli sylvester Referred To Contact Radiology. Diagnoses Right wrist pain 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, initial encounter Procedures MR WRIST ARTHROGRAM [place] [address] [place] [address] Phone: tel: fax: Referral ID Status Reason Start Date Expiration Date V isits Requested Visits Authorized [id number] Authorized 02/01/2025 02/01/2026 1 1 * Therapeutic Services (Routine) - Authorized Specialty Diagnoses / Procedures Referred By Charli sylvester Referred To Contact Radiology. Diagnoses Right wrist pain 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, initial encounter Procedures XR Wrist CT/[place] [address] [place] [address] Phone: tel: fax: [facility] [address] [place] [address] Phone: tel: fax: Referral ID Status Reason Start Date Expiration Date V isits Requested Visits Authorized [id number] Authorized 02/01/2025 02/01/2026 1 1 * Diagnostic Imaging XR (Routine) - Closed Specialty Diagnoses / Procedures Referred By Charli sylvester Referred To Contact Radiology. Diagnoses Right wrist pain Procedures XR Wrist Right G/E 3 [place] [address] [place] [address] Phone: tel: fax: Referral ID Status Reason Start Date Expiration Date Visits Re quested Visits Authorized [id number] Closed 02/01/2025 02/01/2026 1 1 Reason for Visit * Reason Comments Pain * Consultation (Routine) - Pending Review Specialty Diagnoses / Procedures Referred By Charli sylvester Referred To Contact Diagnoses [place] [address] [place] [address] Phone: tel: fax: Referral ID Status Reason Start Date Expiration Date V isits Requested Visits Authorized [id number] Pending Review 01/19/2025 01/19/2026 1 1 Encounter Details Date Type Department Care Team (Late st Contact Info) Description 02/01/2025 10:00 AM CDT Office Visit [facility] [place] [address] [address] [facility] [address] [place], [place] [phone] [place] [address] [address] [place], [place] [phone] [place] [address] [place] [address] 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, initial encounter (Primary Dx); Right wrist pain Social History Tobacco Use [...] than three times a week 07/16/2024 Attends [employer] Services Not on file 07/16 Active Member of Clubs or Organizations Not on f ile 07/16/2024 Attends Club or Organization Meetings Not on antelmo e 07/16/2024 Marital Status Not on file 07/16/2024 PHQ-2 Answer Date Recorded PHQ-2 Score 0 09/13/2024 [facility] [...] this encounter Patient Instructions * Patient Instructions* Cayden Bejarano MD - 02/01/2025 10:00 AM CDT 1. 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, initial encounter 2. Right wrist pain - Patient has acute on chronic wrist pain due to tendinitis and a possible TFCC injury -Personal review of x-rays taken in office today of the right wrist show no acute fracture, dislocation or osseous abnormalities. -Patient has significant tenderness palpation over the TFC joint with pain in all ranges of motion -Patient will get an MR arthrogram of the right wrist for further evaluation of structural injuriesversus tendinitis - Your MRI has been ordered. You may call [phone] to schedule over the phone. Please call my office to schedule a video visit 2 days after your MRI is complete to discuss results and next step treatment options. -Patient will start formal hand therapy and home exercise program. They can also hand molder and caster a custom splint to wear to help with her pain while she is transferring from her wheelchair -Call direct clinic number [[phone]] at any time with questions or concerns. Cayden Bejarano MD [facility] documented in this encounter Progress Notes * Cayden Bejarano MD - 02/01/2025 10:00 AM CDT ASSESSMENT & PLAN Patient Instructions 1. 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, initial encounter 2. Right wrist pain - Patient has acute on chronic wrist pain due to tendinitis and a possible TFCC injury -Personal review of x-rays taken in office today of the right wrist show no acute fracture, dislocation or osseous abnormalities. -Patient has significant tenderness palpation over the TFC joint with pain in all ranges of motion -Patient will get an MR arthrogram of the right wrist for further evaluation of structural injuriesversus tendinitis - Your MRI has been ordered. You may call [phone] to schedule over the phone. Please call my office to schedule a video visit 2 days after your MRI is complete to discuss results and next step treatment options. -Patient will start formal hand therapy and home exercise program. They can also hand molder and caster a custom splint to wear to help with her pain while she is transferring from her wheelchair -Call direct clinic number [[phone]] at any time with questions or concerns. Cayden Bejarano MD [facility] ----- SUBJECTIVE Laina Escuedro is a/an 24 year old Left handed female who is seen in consultation at the request of Heladio Willoughby M.D. for evaluation of right wrist pain. The patient was recently seen by Family Medicine and mentioned righ wrist painThe patient is seen with staff, Helen and staff from the company [employer]. Onset: Intermittent for several years. Patient states that there was drain pipe at [facility] that caused her to fall with her motorized chair and she fell FOOSH. This is her first evaluation of the right wrist Location of Pain: right diffuse wrist Rating of Pain at worst: 10/10 Rating of Pain Currently: 2/10 Worsened by: transfers in and out of her chair independently (at least 4 x's/day), during physical therapy Better with: bracing, physical therapy focusing on ROM and mobility for her upper body Treatments tried: casting/splinting/bracing Associated symptoms: no distal numbness or tingling; denies swelling or warmth Orthopedic history: NO Relevant surgical history: NO Social history:Interested in working in hospitality or with animals. Bowling, basketball, Conductivce ball and Track Past Medical History: Diagnosis Date Acute cystitis Acute kidney failure Acute kidney failure, unspecified 02/10/2020 Capsulitis left shoulder Cerebral infarction (H) Decubitus ulcer Depressive disorder History of brain shunt Horseshoe kidney Hydrocephalus (H) vp digital marketing shunt 01/30/2021 Kidney stone Meningomyelocele (H) Neurogenic bladder Neurogenic bowel Paraplegia (H) Rectal tear Spina bifida (H) Spina bifida with hydrocephalus, lumbar region (H) Thrombus Urinary tract infection Social History Socioeconomic History Marital status: Single Tobacco Use Smoking status: Never Smokeless tobacco: Never Tobacco comments: N/A Vaping Use Vaping status: Never Used Substance and Sexual Activity Alcohol use: Never Drug use: Never Sexual activity: Never Social Drivers of Health Financial Resource Strain: Low Risk (07/16/2024) Financial Resource Strain Within the past 12 months, have you or your family members you live with been unable to get utilities (heat, electricity) when it was really needed?: No Food Insecurity: Low Risk (07/16/2024) Food Insecurity Within the past 12 months, did you worry that your food would run out before you got money to buy more?: No Within the past 12 months, did the food you bought just not last and you didn???t have money to getmore?: No Transportation Needs: Low Risk (07/16/2024) Transportation Needs Within the past 12 months, has lack of transportation kept you from medical appointments, getting your medicines, non-medical meetings or appointments, work, or from getting things that you need?: No Physical Activity: Inactive (07/16/2024) Exercise Vital Sign Days of Exercise per Week: 0 days Minutes of Exercise per Session: 0 min Stress: No Stress Concern Present (07/16/2024) [facility] [place] [facility] [employer] [facility] - Occupational Stress Questionnaire Feeling of Stress : Not at all Social Connections: Unknown (07/16/2024) Social Connection and Isolation Panel [NHANES] Frequency of Social Gatherings with Friends and Family: More than three times a week Interpersonal Safety: Low Risk (12/02/2024) Interpersonal Safety Do you feel physically and emotionally safe where you currently live?: Yes Within the past 12 months, have you been hit, slapped, kicked or otherwise physically hurt by someone?: No Within the past 12 months, have you been humiliated or emotionally abused in other ways by your partner or ex-partner?: No Housing Stability: High Risk (07/16/2024) Housing Stability Do you have housing? : No Are you worried about losing your housing?: No Patient's past medical, surgical, social, and family histories were reviewed today and no changes are noted. REVIEW OF SYSTEMS: 10 point ROS is negative other than symptoms noted above in HPI, Past Medical History or as stated below Constitutional: NEGATIVE for fever, chills, change in weight Skin: NEGATIVE for worrisome rashes, moles or lesions GI/: NEGATIVE for bowel or bladder changes Neuro: NEGATIVE for weakness, dizziness or paresthesias OBJECTIVE: LMP (LMP Unknown) General: healthy, alert and in no distress HEENT: no scleral icterus or conjunctival erythema Skin: no suspicious lesions or rash. No jaundice. CV: regular rhythm by palpation Resp: normal respiratory effort without conversational dyspnea Psych: normal mood and affect Gait: normal steady gait with appropriate coordination and balance Neuro: Normal sensory exam of bilateral hands. Normal 2 pt discrimination. MSK: RIGHT WRIST Inspection: No swelling or obvious deformity or asymmetry Palpation: Tender about the distal radius, TFCC, and extensor tendons. Remainder of bony and ligamentous line pruitt are nontender. Metacarpals: normal Thumb: normal Fingers: normal Range of Motion: flexion limited by pain, extension limited by pain, ulnar deviation limited by pain Strength: Chemical Operator strength limited by pain flexion limited by pain extension limited by pain. Normal pinch strength. Special Tests: Positive: tfc grind Negative: Mary's, CMC grind, thenar eminence wasting, hypothenar eminence wasting. Independent visualization of the below image: Recent Results (from the past 24 hours) XR Wrist Right G/E 3 Views Narrative No acute fracture, dislocation or osseous abnormalities. Cayden Bejar[facility] MD [facility] documented in this encounter Plan of Treatment Upcoming Encounters Date Type Department Care Team (Late st Contact Info) Description 03/23/2025 12:45 PM CDT Appointment [facility] [address] [facility] [address] [place] [phone] [place] [address] [place] [address] 03/23/2025 1:30 PM CDT Hospital Encounter [facility] [address] [facility] [address] [place] [phone] [place] [address] [place] [address] 03/25/2025 10:20 AM CDT Virtual Visit [facility] [place] [address] [place] [address] [address] [place] [address] [place] [address] [place] [address] 04/04/2025 12:00 PM PROPERTY MANAGEMENT ASSISTANT Office Visit [facility] [address] [phone] Sugey Mccoy, DIGITAL PRODUCER [address] [address] 05/05/2025 9:00 AM PROPERTY MANAGEMENT ASSISTANT Office Visit [facility] [address] [place] [phone] Jadon Floyd MD [address] [place] [id number] 05/30/2025 10:20 AM PROPERTY MANAGEMENT ASSISTANT Appointment [facility] [address] [facility] [address] [place] [phone] Carlos Joyner MD [address] [place] [address] 05/31/2025 2:00 PM PROPERTY MANAGEMENT ASSISTANT Virtual Visit [facility] [address] 4[address] [place] [phone] Carlos Joyner MD [address] [place] [address] [id number] 07/25/2025 11:00 AM PROPERTY MANAGEMENT ASSISTANT Office Visit [facility] [address] [place] [address] [place] [address] [place], [place] [phone] Scheduled Orders Name Type Priority Associated Diagnoses Orde r Schedule XR Wrist CT/MR Contrast Injection Right Imaging Routine Right wrist pain 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, initial encounter Expected: 02/01/2025 (Approximate), Expires: 02/01/2026 MR WRIST ARTHROGRAM RIGHT W CONTRAST Imaging Routine Right wrist pain 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, initial encounter Expected: 02/01/2025 (Approximate), Expires: 02/01/2026 Scheduled Referrals Name Type Priority Associated Diagnoses Orde r Schedule Hand Therapy Referral Referral Routine: Next available opening Right wrist pain 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, initial encounter Expected: 02/01/2025 (Approximate), Expires: 02/01/2026 documented as of this encounter Results * XR Wrist Right G/E 3 Views (02/01/2025 10:10 AM CDT) Anatomical Region Laterality Modality Wrist, Right Wrist Right Computed Radi ography Narrative 02/01/2025 11:00 AM CDT No acute fracture, dislocation or osseous abnormalities. us Cayden Bejarano MD IMG DIAGNOSTIC IMAGING ORDERABLE S Final Result documented in this encounter Visit Diagnoses Diagnosis 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, initial encounter- Primary Right wrist pain Pain in joint, forearm Right wrist pain Pain in joint, forearm documented in this encounter Care Teams Plate Glass Installer Relationship Specialty Start [place] [address] [place] [address] PCP - General 03/05/23 Carlos Joyner MD [address] [place] [address] Urology 12/09/19 Jadon Murray MD [facility] [address] [facility] [address] [place] [address] Referring Physician Pediatric Surgery 12/09/19 Maru Villagomez, RN Registered Nurse 12/10/19 Ang Slade MD [address] [place] [address] Urology 04/24/20 Carols Joyner MD [address] [place] [address] Assigned Surgical Provider 12/24/20 Ang Slade MD [address] [address] Urology 12/18/22 Lakshmi Wilhelm PA-C [address] [place] [address] Physician Motorized Squad Captain Urology 02/03/23 [place] [address] [place] [address] Assigned PCP 02/06/23 Alissa Perez PA-C [address] [place] [address] Physician Motorized Squad Captain Surgery 09/04/23 Lakshmi Wilhelm PA-C [address] [place] [address] Physician Motorized Squad Captain Urology 09/16/23 Aidee Valero PA-C [address] [place] [address] Assigned Musculoskeletal Provider 04/17/24 02/14/25 Carlos Joyner MD [address] [place] [address] Urology 01/26/25 Jadon Floyd MD [address] [place] [address] Physician Physical Medicine and Rehabilitation 01/31/25 Tanisha Marlow [address] [facility] [address] 03/30/24 documented as of this encounter
--- OUTSIDE RECORDS SUMMARY | 2025-02-01 10:05 | XMS_ITS | Encounter Summary ---
Author Organization [place] Address [address] [place] [address] Care Team Providers Care Registration Coordinator Name Role Phone Carlos Joyner MD Unavailable [phone] Jadon Murray MD Unavailable [phone] Maru Villagomez RN Unavailable Unavailable Ang Slade MD Unavailable [phone] Carlos Joyner MD Unavailable +[phone] Ang Slade MD Unavailable [phone] Lakshmi Wilhelm-C Unavailable [phone] Heladio Willoughby MD Primary Care Provider [phone] Heladio Willoughby MD Unavailable Alissa Perez PA-C Unavailable [phone] [facility] carey PA-C Unavailable [phone] Aidee Valero PA-C Unavailable [phone] Carlos Joyner MD Unavailable +[phone] Jadon Floyd MD Unavailable [phone] Reason for Visit * Diagnostic Imaging XR (Routine) - Closed Specialty Diagnoses / Procedures Referred By Contac t Referred To Contact Radiology. Diagnoses Right wrist pain Procedures XR Wrist Right G/E 3 [place] [address] [place] [address] Phone: tel: fax: Referral ID Status Reason Start Date Expiration Date Visits Re quested Visits Authorized [id number] Closed 02/01/2025 02/01/2026 1 1 Encounter Details Date Type Department Care Team (Late st Contact Info) Description 02/01/2025 10:05 AM CDT Ancillary Procedure [facility] Orthopedic Care [address] [place] [address] [place] [address] [place] [address] Right wrist pain Social History Tobacco Use [...] than three times a week 07/16/2024 Attends [employer] Not on file 07/16 Active Member of Clubs or Organizations Not on f ile 07/16/2024 Attends Club or Organization Meetings Not on antelmo e 07/16/2024 Marital Status Not on file 07/16/2024 PHQ-2 Answer Date Recorded PHQ-2 Score 0 09/13/2024 [facility] [place] Occupat ional Health - Occupational Stress [...] Info) Description 03/23/2025 12:45 PM CDT Appointment [facility] [address] [place] [address] [place] [address] [place] [address] [place] [address] 03/23/2025 1:30 PM CDT Hospital Encounter [facility] [address] [facility] [address] [place] [phone] [place] [address] [place] [address] 03/25/2025 10:20 AM CDT Virtual Visit [facility] Sports Medicine [facility] [address] [facility] [address] [place] [address] [place] [address] [place] [address] 04/04/2025 12:00 PM DEPLOYMENT SPECIALIST Office Visit [facility] Sleep [address] [phone] Sugey Mccoy, FLIGHT OPERATIONS DISPATCH CLERK [address] [place], [place] [address] 05/05/2025 9:00 AM DEPLOYMENT SPECIALIST Office Visit [facility] Physical Medicine and Rehabilitation Clinic [address] [place] [phone] Jadon Floyd MD [address] [place] [address] 244445 05/30/2025 10:20 AM DEPLOYMENT SPECIALIST Appointment [facility] [address] [facility] [address] [place] [phone] Carlos Joyner MD [address] [place] [address] 848035 05/31/2025 2:00 PM DEPLOYMENT SPECIALIST Virtual Visit [facility] Urology Clinic [address] [place] [phone] Carlos Joyner MD [address] [place] [address] 702285 07/25/2025 11:00 AM DEPLOYMENT SPECIALIST Office Visit [facility] [address] [place] [phone] [place] [address] [place], [place] [phone] documented as of this encounter Procedures Procedure [...] forearm documented in this encounter Care Teams Registration Coordinator Relationship Specialty Start [place] [address] [place], [place] [phone] PCP - General 03/05/23 Carlos Joyner MD 9 [place] [address] Urology 12/09/19 Jadon Murray MD [facility] [address] [address] Referring Physician Pediatric Surgery 12/09/19 Maru Villagomez, OTILIO Registered Nurse 12/10/19 Ang Slade MD [address] 141875 Urology 04/24/20 Carlos Joyner MD [address] [place] [address] Assigned Surgical Provider 12/24/20 Ang Slade MD [address] [place] [address] Urology 12/18/22 Lakshmi Wilhelm PA-C [address] [place] [address] 176915 Physician Manager Brand Urology 02/03/23 [place] [address] [place] [address] Assigned PCP 02/06/23 Alissa Perez PA-C [address] [place] [address] 533435 Physician Manager Brand Surgery 09/04/23 Lakshmi Wilhelm PA-C [address] [place] [address] 225605 Physician Manager Brand Urology 09/16/23 Aidee Valero PA-C [address] [place] [address] [phone] Assigned Musculoskeletal Provider 04/17/24 02/14/25 Carlos Joyner MD [address] [place] [address] 033515 Urology 01/26/25 Jadon Floyd MD 9 [place], [place] 857235 Physician Physical Medicine and Rehabilitation 01/31/25 Tanisha Marlow 4120 [facility] [address] 03/30/24 documented as of this encounter
--- OUTSIDE RECORDS SUMMARY | 2025-02-08 15:00 | XMS_ITS | Encounter Summary ---
Author Organization [facility] Address [address] [place] [address] Care Team Providers Care Cotton Opener Name Role Phone Carlos Joyner MD Unavailable + [phone] Jadon Murray MD Unavailable +[phone] Maru Villagomez RN Unavailable Unavailable Ang Slade MD Unavailable +- [phone] Carlos Joyner MD Unavailable +[phone] Ang Slade MD Unavailable +- [phone] Lakshmi Wilhelm-C Unavailable +[phone] Heladio Willoughby MD Primary Care Provider [phone] Heladio Willoughby MD Unavailable Alissa Perez PA-C Unavailable [phone] [facility] Unavailable +- [phone] Aidee Valero PA-C Unavailable +[phone] Carlos Joyner MD Unavailable + [phone] Jadon Floyd MD Unavailable [phone] Reason for Visit * Occupational Therapy (Routine: Next available opening) - Pending Review Specialty Diagnoses / Procedures Referred By Contabran t Referred To Contact Diagnoses Right wrist pain 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, [place] [address] [place] [address] Phone: tel: fax: Referral ID Status Reason Start Date Expiration Date V isits Requested Visits Authorized [id number] Pending Review 02/01/2025 02/01/2026 1 1 Encounter Details Date Type Department Care Team (Latest Contact Info) Description 02/08/2025 3:00 PM CDT Therapy Visit [facility] [address] [place] [address] [place] [address] [place], [place] [phone] Eliza Carty OT 909 [place] [address] Injury of triangular fibrocartilage complex (TFCC) of [...] than three times a week 07/16/2024 Attends [employer] Not on file 07/16 Active Member of Clubs or Organizations Not on f ile 07/16/2024 Attends Club or Organization Meetings Not on antelmo e 07/16/2024 Marital Status Not on file 07/16/2024 PHQ-2 Answer Date Recorded PHQ-2 Score 0 09/13/2024 [facility] [place] of Occupat ional Health - Occupational Stress [...] home: Self Cares (home health aide/personal injury specialist, family, etc); Home management tasks (cooking, cleaning); Medication and/or finances; Home and Yard maintenance tasks; Assist for driving and community activities Equipment owned: Power wheelchair or scooter; Raised toilet seat; Ceiling lift Employment: No Hobbies/Interests: [employer] Bowling, Basketball, Bocce Ball, Track & Field. Community Cow[employer] Bowling. Dining out with family & caregivers, [...] Transportation: medical transportation Currently not working -At [employer] 5-7 years ago, chair fell over the [...] Forearm based Self Care: Self Care Tasks Senior Living Goals OT Goal 1 Goal Identifier: ADL [...] Care. Evaluation Time: Sherman Corcoran Complexity Minutes (66139): 26 Signing Clinician: Eliza Carty OT [facility] OUTPATIENT OCCUPATIONAL THERAPY PLAN OF TREATMENT FOR OUTPATIENT REHABILITATION Patient's Last Name, First Name, JaelLaina Allan Date of : 2000 Provider's Name [facility] Onset Date: 02/01/25 (order date) Start [...] Info) Description 03/23/2025 12:45 PM CDT Appointment [facility] [address] [facility] [address] [place] [phone] Cayden Bejarano MD [address] [place] [address] [address] [place] [address] 03/23/2025 1:30 PM CDT Hospital Encounter [facility] [address] [facility] [address] [place] [address] Cayden Bejarano MD [address] [place], [place] [address] [place] [address] 03/25/2025 10:20 AM CDT Virtual Visit [facility] Sports Medicine [facility] [place] [address] [place] [address] [address] [place] [address] Cayden Bejarano MD [address] [place] [address] [address] [place] [address] 04/04/2025 12:00 PM SPORTS ACTIVITIES FOUL JUDGE Office Visit [facility] Sleep Center [address] [phone] Sugey Mccoy, COURT TRANSCRIBER [address] [address] 05/05/2025 9:00 AM SPORTS ACTIVITIES FOUL JUDGE Office Visit [facility] Physical Medicine and Rehabilitation Clinic [address] [place] [phone] Jadon Floyd MD [address] [place] [address] 135235 05/30/2025 10:20 AM SPORTS ACTIVITIES FOUL JUDGE Appointment [facility] [address] [place] [address] Carlos Joyner MD [address] [place] [address] 553715 05/31/2025 2:00 PM SPORTS ACTIVITIES FOUL JUDGE Virtual Visit [facility] Urology Clinic [address] [place] [phone] Carlos Joyner MD [address] [place] [address] 740145 07/25/2025 11:00 AM SPORTS ACTIVITIES FOUL JUDGE Office Visit [facility] [address] [place] [phone] [place] [address] [place] [address] documented as of this encounter Visit Diagnoses Diagnosis 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, initial encounter- Primary Right wrist pain Pain in joint, forearm documented in this encounter Care Teams Cotton Opener Relationship Specialty Start [place] [address] [place] [address] PCP - General 03/05/23 Carlos Joyner MD [address] [place] [address] Urology 12/09/19 Jadon Murray MD [facility] 2530 [facility] 550 [place] [address] Referring Physician Pediatric Surgery 12/09/19 Maru Villagomez, RN Registered Nurse 12/10/19 Ang Slade MD [address] [place] [address] 394 [place] [address] Urology 04/24/20 Carlos Joyner MD [address] [place] [address] 115225 Assigned Surgical Provider 12/24/20 Ang Slade MD [address] [place] [address] 394 [place] [address] Urology 12/18/22 Lakshmi Wilhelm PA-C [address] [place] [address] 632255 Physician Starch And Prosize Mixer Urology 02/03/23 [place] [address] [place] [address] Assigned PCP 02/06/23 Alissa Perez PA-C [address] [place] [address] 024975 Physician Starch And Prosize Mixer Surgery 09/04/23 Lakshmi Wilhelm PA-C [address] [place] [address] 713175 Physician Starch And Prosize Mixer Urology 09/16/23 Aidee Valero PA-C [address] [place] [address] [phone] Assigned Musculoskeletal Provider 04/17/24 02/14/25 Carlos Joyner MD [address] [place] [address] [id number] Urology 01/26/25 Jadon Floyd MD [address] [place] [address] 012925 Physician Physical Medicine and Rehabilitation 01/31/25 Tanisha Marlow 4[address] [facility] [address] 03/30/24 documented as of this encounter
--- OUTSIDE RECORDS SUMMARY | 2025-02-15 10:00 | XMS_ITS | Encounter Summary ---
Author Organization [place] Address [address] [place] [address] Care Team Providers Care Account Installation Specialist Name Role Phone Carlos Joyner MD Unavailable [phone] Jadon Murray MD Unavailable [phone] Maru Villagomez RN Unavailable Unavailable Ang Slade MD Unavailable [phone] Carlos Joyner MD Unavailable +[phone] Ang Slade MD Unavailable [phone] Lakshmi Wilhelm PA-C Unavailable +[phone] Heladio Willoughby MD Primary Care Provider [phone] Heladio Willoughby MD Unavailable Alissa Perez-Juan A Unavailable [phone] Lakshmi Wilhelm PA-C Unavailable [phone] Carlos Joyner MD Unavailable +[phone] Jadon Floyd MD Unavailable [phone] Cayden Bejarano MD Unavailable Encounter Details Date Type Department Care Team (Latest Contact Info) Description 02/15/2025 10:00 AM CDT Therapy Visit [facility] [address] [facility] [address] [place] [address] Eliza Carty, OT [address] [place] [address] Injury of triangular fibrocartilage complex (TFCC) of [...] Answer Date Recorded PHQ-2 Score 0 09/13/2024 [facility] Occupat ional Health - Occupational [...] Info) Description 03/23/2025 12:45 PM CDT Appointment [facility] [address] [facility] [address] [place] [address] [place] [address] [place] [address] 03/23/2025 1:30 PM CDT Hospital Encounter [facility] [address] [place] [address] [place] [address] [facility] [address] [place] [address] 03/25/2025 10:20 AM CDT Virtual Visit [facility] [place] [address] [place] [address] [place] [address] [place] [address] 04/04/2025 12:00 PM ACTIVITIES COUNSELOR Office Visit [facility] [place] [address] [place] [address] Sugey Mccoy, HAND [facility] [address] [place] [address] [address] [place], [place] 613914 05/05/2025 9:00 AM ACTIVITIES COUNSELOR Office Visit [facility] [address] [place] [phone] Jadon Floyd MD [address] [place] [address] 685295 05/30/2025 10:20 AM ACTIVITIES COUNSELOR Appointment [facility] [address] [place] [address] Carlos Joyner MD [address] [place] [address] [id number] 05/31/2025 2:00 PM ACTIVITIES COUNSELOR Virtual Visit [facility] [address] [place] [address] Carlos Joyner MD [address] [place] [address] 833225 07/25/2025 11:00 AM ACTIVITIES COUNSELOR Office Visit [facility] [address] [place] [address] [place] [address] [place] [address] documented as of this encounter Visit Diagnoses Diagnosis 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, initial encounter- Primary Right wrist pain Pain in joint, forearm documented in this encounter Care Teams Account Installation Specialist Relationship Specialty Start [place] [address] [place] [address] PCP - General 03/05/23 Carlos Joyner MD [address] [place] [address] 94404 Urology 12/09/19 Jadon Murray MD [facility] [address] [address] Referring Physician Pediatric Surgery 12/09/19 Maru Villagomez, OTILIO Registered Nurse 12/10/19 Ang Slade MD [address] [place] [address] 61104 Urology 04/24/20 Carlos Joyner MD [address] [place] [address] 02254 Assigned Surgical Provider 12/24/20 Ang Slade MD [address] [place] [address] 97445 Urology 12/18/22 Lakshmi Wilhelm PA-C [address] [place] [address] 379715 Physician Assistant Professor Of Nursing Urology 02/03/23 [place] [address] [place] [address] Assigned PCP 02/06/23 Alissa Perez PA-C [address] [place] [address] 11322 Physician Assistant Professor Of Nursing Surgery 09/04/23 Lakshmi Wilhelm PA-C [address] [place] [address] 80361 Physician Assistant Professor Of Nursing Urology 09/16/23 Carlos Joyner MD [address] [place] [address] 435525 Urology 01/26/25 Jadon Floyd MD [address] [place] [address] 153245 Physician Physical Medicine and Rehabilitation 01/31/25 [place] [address] [place] [address] Assigned Musculoskeletal Provider 02/15/25 Tanisha Marlow 4120 [facility] [place] [address] 03/30/24 documented as of this encounter
--- OUTSIDE RECORDS SUMMARY | 2025-02-21 11:05 | XMS_ITS | Encounter Summary ---
Author Organization [place] Address [address] [place] [address] Care Team Providers Care Elastic Attacher Chainstitch Name Role Phone Carlos Joyner MD Unavailable [phone] Jadon Murray MD Unavailable [phone] Maru Villagomez RN Unavailable Unavailable Ang Slade MD Unavailable [phone] Carlos Joyner MD Unavailable +[phone] Ang Slade MD Unavailable [phone] Lakshmi WilhelmC Unavailable [phone] Heladio Willoughby MD Primary Care Provider [phone] Heladio Willoughby MD Unavailable Alissa Perez-Juan A Unavailable [phone] Lakshmi Wilhelm PA-C Unavailable [phone] Carlos Joyner MD Unavailable [phone] Jadon Floyd MD Unavailable [phone] Cayden Bejarano MD Unavailable Encounter Details Date Type Department Care Team (Late st Contact Info) Description 02/21/2025 11:[address] [facility] [address] [place] [address] Recurrent UTI; Kidney stone Social [...] Answer Date Recorded PHQ-2 Score 0 09/13/2024 [facility] - Occupational [...] Info) Description 03/23/2025 12:45 PM CDT Appointment [facility] [address] [facility] [address] [place] [phone] [place] [address] [place] [address] 03/23/2025 1:30 PM CDT Hospital Encounter [facility] [address] [facility] [address] [place] [address] Cayden [place] [address] [place] [address] 03/25/2025 10:20 AM CDT Virtual Visit [facility] [place] [address] [place] [facility] [place] [address] [place] [address] [place] [address] [place] [address] 04/04/2025 12:[address] Office Visit [facility] [place] [address] [facility] [place] [address] Sugey Mccoy, [facility] [address] [place] [address] [address] [place] [address] 05/05/2025 9:[address] Office Visit [facility] Rehabilitation [facility] [address]rd [place] [address] Jadon Floyd MD [address] [place] [address] 879625 05/30/2025 10:[address] Appointment [facility] [address] [facility] [address] [place] [address] Carlos Joyner MD [address] [place] [address] 558995 05/31/2025 2:[address] Virtual Visit [facility] Urology Clinic [address] [place] [address] Carlos Joyner MD [address] [place] [address] 002695 07/25/2025 11:[address] Office Visit [address] [address] [place] [address] [place] [address] documented as of this encounter [...] platelets and differential (02/21/2025 11:26 AM CDT) WBC Count 8.85 4.00 - 11.00 10e3/uL [...] - 1.30 10e3/uL 02/21/2025 12:13 PM CDT [facility] Absolute Eosinophils 0.11 0.00 - 0.70 10e3/uL 02/21/2025 12:13 PM CDT [facility] Absolute Basophils 0.03 0.00 - 0.20 10e3/uL 02/21/2025 12:13 PM CDT [facility] Absolute Immature Granulocytes 0.03 <=0.40 10e3/uL 02/21/2025 12:13 PM CDT [facility] Absolute NRBCs <0.03 10e3/uL 02/21/2025 12:13 PM CDT [facility] Blood STRUCTURE OF RIGHT UPPER LIMB / Unknown Venipuncture / Unknown 02/21/2025 11:26 AM CDT 02/21/2025 11:27 AM CDT us Carlos Joyner MD LAB - BLOOD ORDERABLES Fin al Result LABORATORY [facility] Acute Care Lab [address] [facility] Lab (1st floor, no room number) [place] [address], [facility] * Hepatic panel (Albumin, ALT, AST, Bili, [...] ORDERABLES Fin al Result Performing Organization Address City/[facility]/ZIP Co de Phone Number [facility] Care Lab [address] Lab (1st floor, no room number) [place] [address] * Reticulocyte count (02/21/2025 11:26 AM CDT) [facility] % Reticulocyte 1.82 0.50 - 2.00 % 02/21/2025 12:13 PM CDT LABORATORY Absolute Reticulocyte 0.0865 0.0250 - 0.0950 10e6/uL 02/21/2025 12:13 PM CDT [facility] Blood STRUCTURE OF RIGHT UPPER LIMB / Unknown Venipuncture / Unknown 02/21/2025 11:26 AM CDT 02/21/2025 11:27 AM CDT Carlos Joyner MD LAB - BLOOD ORDERABLES Fin al Result [facility] Acute Care Lab [address] Lab (1st floor, no room number) [place] [address] * (ABNORMAL) Basic metabolic panel (Ca, Cl, CO2, Creat, Gluc, K, Na, BUN) (02/21/2025 11:26 AM CDT) Pathologist [facility] Sodium 140 135 - 145 mmol/L 02/21/2025 [...] - BLOOD ORDERABLES Fin al Result LABORATORY [facility] Acute Care Lab [address] [facility] Lab (1st floor, no room number) [place] [address], [facility] * (ABNORMAL) Urine Culture Aerobic Bacterial (02/21/2025 11:15 AM CDT) Pathologist [facility] Culture 50,000-100,000 CFU/mL Enterococcus faecalis(A) 02/24/2025 10:10 [...] and Susceptibility testing requested by Dr Joyner [phone] Multiple morphotypes present with no predominant organism. [...] LINDA 8 ug/mL: Susceptible Klebsiella pneumoniae Piperacillin/Tazobactam LINAD <=4 ug/mL: Susceptible Klebsiella pneumoniae Cefazolin LINDA [...] LINDA <=1 ug/mL: Susceptible Klebsiella pneumoniae Ciprofloxacin LNIDA 0.12 ug/mL: Susceptible Klebsiella pneumoniae Levofloxacin LINDA 0.25 ug/mL: Susceptible Klebsiella pneumoniae Nitrofurantoin LINDA 64 ug/mL: Intermediate Klebsiella pneumoniae Trimethoprim/Sulfa methoxazol e LINDA <=1/19 ug/mL: Susceptible Carlos Joyner MD LAB - [place] [facility] ORDERA BLES Edited Result - Final UU IDD LABORATORY [facility] Inf. Diseases Diag. Lab [address] [facility], Room D297 [place] [phone] documented in this encounter Visit Diagnoses Diagnosis Recurrent UTI Urinary tract infection, site not specified Kidney stone Calculus of kidney documented in this encounter Care Teams Elastic Attacher Chainstitch Relationship Specialty [place] [address] [place], [place] [phone] PCP - General 03/05/23 Carlos Joyner MD [address] [place] [address] Urology 12/09/19 Jadon Murray MD [facility] 25[address] [facility] [address] [place] [address] Referring Physician Pediatric Surgery 12/09/19 Maru Villagomez, RN Registered Nurse 12/10/19 Ang Slade MD [address] [place] [address] 394 [place], [place] 153695 Urology 04/24/20 Carlos Joyner MD [address] [place] [address] 776485 Assigned Surgical Provider 12/24/20 Ang Slade MD [address] [place] [address] 394 [place], [place] 904675 MD Urology 12/18/22 Lakshmi Wilhelm PA-C [address] [place] [address] 587655 Physician Morale Officer Urology 02/03/23 [place] [address] [place] [address] Assigned PCP 02/06/23 Alissa Perez PA-C [address] [place] [address] 578035 Physician Morale Officer Surgery 09/04/23 Lakshmi Wilhelm PA-C [address] [place] [address] 866505 Physician Morale Officer Urology 09/16/23 Carlos Joyner MD 909 [place] [address] Urology 01/26/25 Jadon Floyd MD 909 [place], [place] 239625 Physician Physical Medicine and Rehabilitation 01/31/25 [place] [address] [place], [place] 874427 Assigned Musculoskeletal Provider 02/15/25 Tanisha Marlow 4120 [facility] [address] 03/30/24 documented as of this encounter
--- OUTSIDE RECORDS SUMMARY | 2025-02-22 14:30 | XMS_ITS | Encounter Summary ---
Author Organization [place] Address [address] [place] [address] Care Team Providers Care Piercing Mill Operator Name Role Phone Carlos Joyner MD Unavailable [phone] Jadon Murray MD Unavailable [phone] Maru Villagomez RN Unavailable Unavailable Ang Slade MD Unavailable [phone] Carlos Joyner MD Unavailable +[phone] Ang Slade MD Unavailable [phone] Lakshmi Wilhelm PA-C Unavailable [phone] Heladio Willoughby MD Primary Care Provider [phone] Heladio Willoughby MD Unavailable Alissa Perez-Juan A Unavailable [phone] Lakshmi Wilhelm PA-C Unavailable [phone] Carlos Joyner MD Unavailable +[phone] Jadon Floyd MD Unavailable [phone] Cayden Bejarano MD Unavailable Encounter Details Date Type Department Care Team (Latest Contact Info) Description 02/22/2025 2:30 PM CDT Therapy Visit [facility] [address] [facility] [address] [place] [address] Eliza Carty, OT [address] [place] [address] Injury of triangular fibrocartilage complex (TFCC) of [...] Answer Date Recorded PHQ-2 Score 0 09/13/2024 [facility] of Occupat ional Health - Occupational [...] Info) Description 03/23/2025 12:45 PM CDT Appointment [facility] [address] [facility] [address] [place] [address] [place] [address] [place] [address] 03/23/2025 1:30 PM CDT Hospital Encounter [facility] [address] [place] [address] [place] [address] [facility] [address] [place] [address] 03/25/2025 10:20 AM CDT Virtual Visit [facility] [place] [address] [place] [address] [place] [address] [place] [address] 04/04/2025 12:00 PM AIR BATTLE MANAGER Office Visit [facility] [place] [address] [place] [address] Sugey Mccoy, STAFF ENGINEER [facility] [address] [place] [address] [address] [place], [place] 081654 05/05/2025 9:00 AM AIR BATTLE MANAGER Office Visit [facility] [address] [place] [address] Jadon Floyd MD [address] [place] [address] 980895 05/30/2025 10:20 AM AIR BATTLE MANAGER Appointment [facility] Imaging [address] [place] [address] Carlos Joyner MD [address] [place] [address] [phone] 05/31/2025 2:00 PM AIR BATTLE MANAGER Virtual Visit [facility] U[facility] Clinic [address] [place] [address] Carlos Joyner MD [address] [place] [address] 621885 07/25/2025 11:00 AM AIR BATTLE MANAGER Office Visit [facility] [address] [place] [address] [place] [address] [place] [address] documented as of this encounter Visit Diagnoses Diagnosis 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, initial encounter- Primary Right wrist pain Pain in joint, forearm documented in this encounter Care Teams Piercing Mill Operator Relationship Specialty [place] [address] [place] [address] PCP - General 03/05/23 Carlos Joyner MD [address] [place] [address] Urology 12/09/19 Jadon Murray MD [facility] [address] [address] Referring Physician Pediatric Surgery 12/09/19 Maru Villagomez, OTILIO Registered Nurse 12/10/19 Ang Slade MD [address] [place] [address] Urology 04/24/20 Carlos Joyner MD [address] [place] [address] Assigned Surgical Provider 12/24/20 Ang Slade MD [address] [place] [address] Urology 12/18/22 Lakshmi Wilhelm PA-C [address] [place] [address] 895495 Physician Radio Time Salesperson Urology 02/03/23 [place] [address] [place] [address] Assigned PCP 02/06/23 Alissa Perez PA-C [address] [place] [address] Physician Radio Time Salesperson Surgery 09/04/23 Lakshmi Wilhelm PA-C [address] [place] [address] Physician Radio Time Salesperson Urology 09/16/23 Carlos Joyner MD [address] [place] [address] 792595 Urology 01/26/25 Jadon Floyd MD [address] [place] [address] 112595 Physician Physical Medicine and Rehabilitation 01/31/25 [place] [address] [place] [address] Assigned Musculoskeletal Provider 02/15/25 Tanisha Marlow 4120 [facility] [place] [address] 03/30/24 documented as of this encounter
--- OUTSIDE RECORDS SUMMARY | 2025-02-25 10:45 | XMS_ITS | Encounter Summary ---
Author Organization [place] Address [address] [place] [address] Care Team Providers Care Keno Writer Name Role Phone Carlos Joyner MD Unavailable [phone] Jadon Murray MD Unavailable [phone] Maru Villagomez RN Unavailable Unavailable nAg Slade MD Unavailable +[phone] Carlos Joyner MD Unavailable +[phone] Ang Slade MD Unavailable [phone] Lakshmi WilhelmC Unavailable [phone] Heladio Willoughby MD Primary Care Provider [phone] Heladio Willoughby MD Unavailable Alissa Perez PA-Juan A Unavailable [phone] Lakshmi Wilhelm PA-C Unavailable [phone] Carlos Joyner MD Unavailable [phone] Jadon Floyd MD Unavailable [phone] Cayden Bejarano MD Unavailable Reason for Visit * Reason Comments RECHECK Encounter Details Date Type Department Care Team (Late st Contact Info) Description 02/25/2025 10:45 AM CDT Virtual Visit [facility] Urology [address] 4th [place] [address] Umberto Mccarthy, SUPERINTENDENT MARINE 420 [facility], RO[address] [place] [address] Neurogenic bladder (Primary Dx); Recurrent UTI Social [...] Date Recorded PHQ-2 Score 0 09/13/2024 [facility] of Occupat ional Health [...] this encounter Patient Instructions * Patient Instructions* Umberto Mccarthy NP - 02/25/2025 10:45 AM CDT Irrigate [...] may be seen on withdrawal of saline. [email or web address] Signs of UTI - fever, chills, altered mental status, flank pain, suprapubic pain, increased urinaryincontinence, spasticity or blood in the urine Signs that do not indicate a UTI - foul-smelling, cloudy urine, sediments, dark color documented in this encounter Progress Notes * Umberto Mccarthy NP - 02/25/2025 10:45 AM CDT Video-Visit Details Type of service: Video Visit Video Start Time: 1042 Video End Time:1107 Originating Location (pt. Location): Home Distant Location (provider location): On-site Platform used for Video Visit: [facility] HPI: Laina Escudero is a 24 year [...] 30cc Follow-up with me in 1 year. Umberto Mccarthy NP [facility] [place] Additional Coding Information: Time spent: I spent a total of 40 minutes on the day of the visit. Time spent by me today doing chart review, history and exam, documentation and further activities per the note documented in this encounter Nursing Notes * Martha Garduno - 02/25/2025 10:45 AM CDT Current patient location: [place] Is the patient currently in the state of [place]? YES Visit mode: VIDEO If the visit is dropped, the patient can be reconnected by:VIDEO VISIT: Text to cell phone: Telephone Information: Mobile Not on file. Will anyone else be joining the visit? NO (If patient encounters technical issues they should call [phone] :[phone]) Are changes needed to the allergy or medication list? No Are refills needed on medications prescribed by this physician? NO Rooming Documentation: Questionnaire(s) completed Reason for visit: RECHECK Martha aGrduno VVF documented in this encounter Miscellaneous Notes * Addendum Note - Umberto Mccarthy NP - 02/25/2025 10:45 AM CDTAddended by: UMBERTO MCCARTHY on: 03/04/2025 12:50 PM Modules accepted: Orders documented in this encounter Plan of Treatment Upcoming Encounters Date Type Department Care Team (Late st Contact Info) Description 03/23/2025 12:45 PM CDT Appointment [facility] [address] [place] [phone] [place] [address] [place], [place] [address] [place] [address] 03/23/2025 1:30 PM CDT Hospital Encounter [facility] [address] [place] [address] [place] [address] [facility] [address] [place] [address] 03/25/2025 10:20 AM CDT Virtual Visit [facility] [place] [address] [place] [address] [place] [address] [place] [address] 04/04/2025 12:00 PM INTERNAL MEDICINE NURSE Office Visit [facility] [place] [address] [facility] [place] [address] Sugey Mccoy, CHIEF ENGINEER [employer] [facility] [address] [place] [address] [address] [place] [address] 05/05/2025 9:00 AM INTERNAL MEDICINE NURSE Office Visit [facility] [address] [place] [phone] Jadon Floyd MD [address] [place] [address] 738625 05/30/2025 10:20 AM INTERNAL MEDICINE NURSE Appointment [facility] Imaging [address] [place] [address] Carlos Joyner MD [address] [place] [address] 586955 05/31/2025 2:00 PM INTERNAL MEDICINE NURSE Virtual Visit [facility] Urology Clinic [address] [place] [phone] Carlos Joyner MD [address] [place] [address] 832925 07/25/2025 11:00 AM INTERNAL MEDICINE NURSE Office Visit [facility] [address] [place] [address] [place]adio [place] [address] [place] [address] documented as of this encounter Visit Diagnoses Diagnosis Neurogenic bladder- Primary Neurogenic bladder, NOS Recurrent UTI Urinary tract infection, site not specified documented in this encounter Care Teams Keno Writer Relationship Specialty Start [place] [address] [facility] [place] 01500[address] PCP - General 03/05/23 Carlos Joyner MD [address] [place] [address] 321765 Urology 12/09/19 Jadon Murray MD [facility] 2530 [facility] 550 [place], [place] [phone] Referring Physician Pediatric Surgery 12/09/19 Maru Villagomez, RN Registered Nurse 12/10/19 Ang Slade MD [address] [place] [address] Urology 04/24/20 Carlos Joyner MD [address] [place] [address] Assigned Surgical Provider 12/24/20 Ang Slade MD [address] [place] [address] Urology 12/18/22 Lakshmi Wilhelm PA-C [address] [place] [address]06 Physician Printing Supervisor Urology 02/03/23 [place] [address] [place] [address] Assigned PCP 02/06/23 Alissa Perez PA-C [address] [place] [address] Physician Printing Supervisor Surgery 09/04/23 Lakshmi Wilhelm PA-C [address] [place] [address]98 Physician Printing Supervisor Urology 09/16/23 Carlos Joyner MD [address] [place] [address] Urology 01/26/25 Jadon Floyd MD [address] [place] [address] 756395 Physician Physical Medicine and Rehabilitation 01/31/25 [place] [address] [place] [address] Assigned Musculoskeletal Provider 02/15/25 Tanisha Marlow 4120 [facility] [address] 03/30/24 documented as of this encounter
--- OUTSIDE RECORDS SUMMARY | 2025-03-10 10:00 | XMS_ITS | Encounter Summary ---
Author Organization [facility] Address [address] [place] [address] Care Team Providers Care Crochet Machine Operator Name Role Phone Carlos Joyner MD Unavailable [phone] Jadon Murray MD Unavailable [phone] Maru Villagomez RN Unavailable Unavailable Ang Slade MD Unavailable [phone] Carlos Joyner MD Unavailable [phone] Ang Slade MD Unavailable [phone] Lakshmi WilhelmC Unavailable [phone] Heladio Willoughby MD Primary Care Provider [phone] Heladio Willoughby MD Unavailable Alissa Perez-Juan A Unavailable [phone] ScLakshmi morales PA-C Unavailable [phone] Carlos Joyner MD Unavailable [phone] Jadon Floyd MD Unavailable [phone] Cayden Bejarano MD Unavailable Reason for Visit * Reason Comments Hospital F/U Flu and Covid vaccin es. 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; Need for vaccination Social History Tobacco Use Types Packs/Day Years [...] Answer Date Recorded PHQ-2 Score 0 09/13/2024 [facility] [place] [facility] - Occupational Stress [...] Sign Reading Time Taken Comments Blood Pressure 108/79 03/10/2025 9:46 AM CDT Pulse 90 03/10/2025 9:46 AM CDT Temperature 36.9 C (98.5 F) 03/10/2025 9:46 AM CDT Respiratory Rate 18 03/10/2025 9:46 AM CDT Oxygen Saturation 97% 03/10/2025 9:46 AM CDT Inhaled Oxygen Concentration - - Weight 70.3 kg (155 lb) 03/10/2025 9:46 AM CDT Height 157.5 cm (5' 2.01) 03/10/2025 9:46 AM CD T Body Mass Index 28.34 03/10/2025 9:46 AM CDT documented in this encounter Progress Notes * Pam Lau MD - 03/10/2025 10:00 AM CDT Images from the original note were not included. Assessment & Plan Hospital discharge follow-up Fever, unspecified fever cause Due to PNA, resolved Acute respiratory failure with hypoxia (H) Resolved Completed ABX Wound of sacral region, subsequent encounter Stable today Continue with wound cares Has follow-up with PMR Thrombocytopenia Difficult stick Plan to do CBC with ultrasound in the hospital - CBC with platelets and differential; Future Pneumonia of right lower lobe due to infectious organism Resolved Neurogenic dysfunction of the urinary bladder Stable Continue with straight cath Paraplegia (H) Not discussed Horseshoe kidney Not discussed 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 MED REC REQUIRED Post Medication Reconciliation Status: BMI Estimated body mass index is 28.34 kg/m?? as calculated from the following: Height as of this encounter: 1.575 m (5' 2.01). Weight as of this encounter: 70.3 kg (155 lb). Yared Marina is a 24 year old, presenting for the following health issues: Hospital F/U (Flu and Covid vaccines. ) 03/10/2025 9:44 AM Additional Questions Roomed by BRIANNA Chacon Accompanied by Guardian HPI Review of Systems Constitutional, HEENT, cardiovascular, pulmonary, gi and gu systems are negative, except as otherwise noted. Objective Pulse 90 Temp 98.5 ??F (36.9 ??C) (Temporal) Resp 18 Ht 1.575 m (5' 2.01) Wt 70.3 kg (155 lb) LMP (LMP Unknown) SpO2 97% BMI 28.34 kg/m?? Body mass index is 28.34 kg/m??. Physical Exam Constitutional: Appearance: Normal appearance. Eyes: Extraocular Movements: Extraocular movements intact. Cardiovascular: Rate and Rhythm: Normal rate and regular rhythm. Pulmonary: Effort: Pulmonary effort is normal. Breath sounds: Normal breath sounds. Abdominal: Palpations: Abdomen is soft. Musculoskeletal: General: Normal range of motion. Cervical back: Normal range of motion. Skin: General: Skin is warm. Comments: Multiple stable pressure ulcers Neurological: General: No focal deficit present. Mental Status: She is alert and oriented to person, place, and time. Mental status is at baseline. Psychiatric: Mood and Affect: Mood normal. Behavior: Behavior normal. Thought Content: Thought content normal. Judgment: Judgment normal. Signed Electronically by: Pam Lau MD * Pam Lau MD - 03/10/2025 10:00 AM CDT Prior to immunization administration, verified patients identity using patient???s name and date ofbirth. Please see Immunization Activity for additional information. Screening Questionnaire for Adult Immunization Are you sick today? No Do you have allergies to medications, food, a vaccine component or latex? No Have you ever had a serious reaction after receiving a vaccination? No Do you have a long-term health problem with heart, lung, kidney, or metabolic disease (e.g., diabetes), asthma, a blood disorder, no spleen, complement component deficiency, a cochlear implant, or a spinal fluid leak? Are you on long-term aspirin therapy? No Do you have cancer, leukemia, HIV/AIDS, or any other immune system problem? No Do you have a parent, brother, or sister with an immune system problem? No In the past 3 months, have you taken medications that affect your immune system, such as prednisone, other steroids, or anticancer drugs; drugs for the treatment of rheumatoid arthritis, Crohn???s disease, or psoriasis; or have you had radiation treatments? No Have you had a seizure, or a brain or other nervous system problem? No During the past year, have you received a transfusion of blood or blood products, or been given immune (gamma) globulin or antiviral drug? No For women: Are you or is there a chance you could become during the next month? No Have you received any vaccinations in the past 4 weeks? No Immunization questionnaire answers were all negative. Patient instructed to remain in clinic for 15 minutes afterwards, and to report any adverse reactions. Screening performed by Joelle Go CMA on 03/10/2025 at 10:39 AM. documented in this encounter Plan of Treatment Upcoming Encounters Date Type Department Care Team (Late st Contact Info) Description 03/23/2025 12:45 PM CDT Appointment [facility] [address] [facility] [address] [place] [address] [place] [address] [place] [address] 03/23/2025 1:30 PM CDT Hospital Encounter [facility] [address] [facility] [address] [place] [phone] [place] [address] [place] [address] 03/25/2025 10:20 AM CDT Virtual Visit [facility] [place] [address] [place] [address] [place] [address] [place] [address] 04/04/2025 12:00 PM WIRE COATER Office Visit [facility] Sleep [address] [phone] Sugey Mccoy, TRAVEL OT [address] [address] 05/05/2025 9:00 AM WIRE COATER Office Visit [facility] [address] [place] [phone] Jadon Floyd MD [address] [place] [address] 05/30/2025 10:20 AM WIRE COATER Appointment [facility] [address] [place] [phone] Carlos Joyner MD [address] [place] [address] 05/31/2025 2:00 PM WIRE COATER Virtual Visit [facility] Urology Clinic [address] 4th [place] [phone] Carlos Joyner MD [address] [place] [address] 07/25/2025 11:00 AM WIRE COATER Office Visit [facility] [address] [place] [phone] [place] [address] [place], [place] [phone] Scheduled Orders Name Type Priority Associated Diagnoses Orde r Schedule CBC with platelets and differential Lab Panel Routine Thrombocytopenia Expected: 03/10/2025 (Approximate), Expires: 03/10/2026 documented as of this encounter Visit Diagnoses Diagnosis Hospital discharge follow-up- Primary Other follow-up examination Fever, unspecified fever cause Acute respiratory failure with hypoxia (H) Acute respiratory failure Wound of sacral region, subsequent encounter Thrombocytopenia Thrombocytopenia, unspecified Pneumonia of right lower lobe due to infectious organism Neurogenic dysfunction of the urinary bladder Neurogenic bladder, NOS Paraplegia (H) Paraplegia 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 S/P HORTICULTURE WORKER shunt Presence of cerebrospinal fluid drainage device Need for vaccination Need for prophylactic vaccination and inoculation against unspecified single disease documented in this encounter Care Teams Crochet Machine Operator Relationship Specialty Start [place] [address] [place], [place] [phone] PCP - General 03/05/23 Carlos Joyner MD [address] [place] [address] Urology 12/09/19 Jadon Murray MD [facility] [address] [facility] [address] [place] [address] Referring Physician Pediatric Surgery 12/09/19 Maru Villagomez, RN Registered Nurse 12/10/19 Ang Slade MD [address] [place] [address] [address] [place] [address] Urology 04/24/20 Carlos Joyner MD [address] [place] [address] [id number] Assigned Surgical Provider 12/24/20 Ang Slade MD [address] [place] [address] [address] [place] [address] Urology 12/18/22 Lakshmi Wilhelm PA-C [address] [place] [address] [phone] Physician Craft Manager Urology 02/03/23 [place] [address] [place] [address] Assigned PCP 02/06/23 Alissa Perez PA-C [address] [place] [address] [id number] Physician Craft Manager Surgery 09/04/23 Lakshmi Wilhelm PA-C [address] [place] [address] [id number] Physician Craft Manager Urology 09/16/23 Carlos Joyner MD [address] [place], [place] 1483[address] Urology 01/26/25 Jadon Floyd MD [address] [place], [place] 280365 Physician Physical Medicine and Rehabilitation 01/31/25 [place] [address] [place] [address] Assigned Musculoskeletal Provider 02/15/25 Tanisha Marlow [address] [facility] [address] 03/30/24 documented as of this encounter
--- OUTSIDE RECORDS SUMMARY | 2025-03-12 19:27 | XMS_ITS | Encounter Summary ---
Author Organization [facility] Address [address] [place] [address] Care Team Providers Care Shoe Ironer Name Role Phone Carlos Joyner MD Unavailable [phone] Jadon Mruray MD Unavailable [phone] Maru Villagomez RN Unavailable Unavailable Ang Slade MD Unavailable [phone] Carlos Joyner MD Unavailable +[phone] Ang Slade MD Unavailable [phone] Lakshmi WilhelmC Unavailable [phone] Heladio Willoughby MD Primary Care Provider [phone] Heladio Willoughby MD Unavailable Alissa Perez PA-Juan A Unavailable [phone] Lakshmi Wilhelm PA-C Unavailable [phone] Carlos Joyner MD Unavailable +[phone] Jadon Floyd MD Unavailable [phone] Cayden Bejarano MD Unavailable Reason for Visit * Reason Onset Date Comments Forms [facility] Note Encounter Details Date Type Department Care Team (Late st Contact Info) Description 03/07/[address] [address] [place] [address] [place] [address] Forms ([facility]/Rehab Services / PT Daily Note/) Social History Tobacco Use Types Packs/Day Years [...] * Telephone Encounter - Sarika Dunaway - 03/08/2025 8:14 AM CDT Called [facility] and requested ED note with testing if applicable be faxed to clinic. HIM's will fax to [facility] directly. Patient has ED follow up scheduled with Dr. Orozco on 03/10. Faxed signed orders to [facility]. Placed in tc basket at [facility]. Sarika Elder, Vice President Of Software Development- [place] [address] Primary Care- [place] [facility] * Telephone Encounter - Heladio Willoughby MD - 03/08/2025 7:02 AM CDT Patient recently hospitalized at [facility]. I do not have records. Request is for ongoingPT (unclear if PT was placed during hospitalization or if this is for ongoing PT prior to hospitalization). Please call to obtain records from [facility] and help schedule hospital follow up visit if recommended via discharge summary. Thanks, Heladio Elder. MD Jael Willoughby [facility] [place] 03/08/2025 * Telephone Encounter - Sarika Dunaway - 03/07/2025 4:57 PM CDT Placed in provider basket for signature. Sarika Elder, Vice President Of Software Development- [place] [address] Primary Care- [place] [facility] * Telephone Encounter - Zoe Johnson - 03/07/2025 4:04 PM CDT Forms/Letter Request Type of form/letter: OTHER: [facility] Rehab Services / PT Daily Note Do we have the form/letter: Yes: Who is the form from? (if other please explain) [facility] Rehab Services / PT Daily Note Where did/will the form come from? Form was faxed in When is form/letter needed by: How would you like the form/letter returned: Zoe Johnson Patient Convenience Recycle Center Tech documented in this encounter Plan of Treatment Upcoming Encounters Date Type Department Care Team (Late st Contact Info) Description 03/23/2025 12:45 PM CDT Appointment [facility] [address] [place] [phone] Cayden Bejarano MD [address] [place] [address] [address] [place], [place] [address] 03/23/2025 1:30 PM CDT Hospital Encounter [facility] [address] [place] [phone] [place] [address] [place] [address] 03/25/2025 10:20 AM CDT Virtual Visit [facility] [place] [address] [place] [address] [address] [place] [address] [place] [address] [place] [address] 04/04/2025 12:00 PM CERAMIC TILE INSTALLATION HELPER Office Visit [facility] [place] [address] [place] [phone] Sugey Mccoy, SALON SALES CONSULTANT[address] [address] 05/05/2025 9:00 AM CERAMIC TILE INSTALLATION HELPER Office Visit [facility] [address] [place] [phone] Jadon Floyd MD [address] [place] [address] 228885 05/30/2025 10:20 AM CERAMIC TILE INSTALLATION HELPER Appointment [facility] Imaging [address] [facility] [address] [place] [phone] Carlos Joyner MD [address] [place] [address] 05/31/2025 2:00 PM CERAMIC TILE INSTALLATION HELPER Virtual Visit [facility]rology [facility] [address] [place] [phone] Carlos Joyner MD [address] [place] [address] 07/25/2025 11:00 AM CERAMIC TILE INSTALLATION HELPER Office Visit [facility] [address] [place] [phone] [place] [address] [address] [place] [phone] documented as of this encounter Visit Diagnoses Not on filedocumented in this encounter Care Teams Shoe Ironer Relationship Specialty Start [place] [address] [address] [place] [id number] PCP - General 03/05/23 Carlos Joyner MD [address] [place] [address] 432325 Urology 12/09/19 Jadon Murray MD [facility] [address] [address] Referring Physician Pediatric Surgery 12/09/19 Maru Villagomez, RN Registered Nurse 12/10/19 Ang Slade MD [address] [place] [address] 242715 Urology 04/24/20 Carlos Joyner MD [address] [place] [address] Assigned Surgical Provider 12/24/20 Ang Slade MD [address] [place] [address] 217615 Urology 12/18/22 Lakshmi Wilhelm PA-C [address] [place] [address] 965825 Physician Erecting Crane Operator Urology 02/03/23 [place] [address] [place] [address] Assigned PCP 02/06/23 Alissa Perez PA-C [address] [place] [address] 200995 Physician Erecting Crane Operator Surgery 09/04/23 Lakshmi Wilhelm PA-C [address] [place] [address] 616475 Physician Erecting Crane Operator Urology 09/16/23 Carlos Joyner MD [address] [place] [address] 585075 Urology 01/26/25 Jadon Floyd MD [address] [place] [address] 433695 Physician Physical Medicine and Rehabilitation 01/31/25 [place] [address] [place] [address] Assigned Musculoskeletal Provider 02/15/25 Tanisha Marlow 4120 [facility] [address] 03/30/24 documented as of this encounter
--- OUTSIDE RECORDS SUMMARY | 2025-03-12 19:27 | XMS_ITS | Encounter Summary ---
Author Organization [facility] Address [address] [place] [address] Care Team Providers Care Auto Glass Technician Name Role Phone Carlos Joyner MD Unavailable [phone] Jadon Murray MD Unavailable [phone] Maru Villagomez RN Unavailable Unavailable Ang Slade MD Unavailable [phone] Carlos Joyner MD Unavailable +[phone] Ang Slade MD Unavailable [phone] Lakshmi WilhelmC Unavailable [phone] Heladio Willoughby MD Primary Care Provider [phone] Heladio Willoughby MD Unavailable Alissa Perez-Juan A Unavailable [phone] Lakshmi Wilhelm PA-C Unavailable [phone] Carlos Joyner MD Unavailable +[phone] Jadon Floyd MD Unavailable [phone] Cayden Bejarano MD Unavailable Encounter Details Date Type Department Care Team (Latest Contact Info) Description 03/08/2025 Travel Social History Tobacco Use Types Packs/Day [...] Answer Date Recorded PHQ-2 Score 0 [facility] [...] Info) Description 03/23/2025 12:45 PM CDT Appointment [facility] [address] [facility] [address] [place] [phone] [place] [phone] [place] [address] [address] [place] [address] 03/23/2025 1:30 PM CDT Hospital Encounter [facility] [address] [facility] [address] [place] [phone] [place] [address] [facility] [address] [place] [address] 03/25/2025 10:20 AM CDT Virtual Visit [facility] [place] [address] [facility] [address] [place] [address] [place] [address] [facility] [address] [place] [address] 04/04/2025 12:00 PM LAYER UP Office Visit [facility] Center [address] [address] Sugey Mccoy, CONFERENCE MANAGER MANAGER CARDIAC [address] [place] [address] 05/05/2025 9:00 AM LAYER UP Office Visit [facility] Rehabilitation [facility] [address]rd [place] [phone] Jadon Floyd MD [address] [place] [address] 375005 05/30/2025 10:20 AM LAYER UP Appointment [facility] Imaging [address] [place] [phone] Carlos Joyner MD [address] [place] [address] 353135 05/31/2025 2:00 PM LAYER UP Virtual Visit [facility] Urology Clinic [address] [place] [phone] Carlos Joyner MD [address] [place] [address] [phone] 07/25/2025 11:00 AM LAYER UP Office Visit [facility] [address] [place] [phone] [place] [address] [place], [place] [phone] documented as of this encounter Visit Diagnoses Not on filedocumented in this encounter Care Teams Auto Glass Technician Relationship Specialty Start [place] [address] [place] [address] PCP - General 03/05/23 Carlos Joyner MD [address] [place] [address] [phone] Urology 12/09/19 Jadon Murray MD [facility] [address] [facility] 550 [place] [address] Referring Physician Pediatric Surgery 12/09/19 Maru Villagomez, RN Registered Nurse 12/10/19 Ang Slade MD [address] [place] [address] 394 [place], [place] 147325 Urology 04/24/20 Carlos Joyner MD [address] [place] [address] [phone] Assigned Surgical Provider 12/24/20 Ang Slade MD [address] [place] [address] 952615 Urology 12/18/22 Lakshmi Wilhelm PA-C [address] [place] [address] 696995 Physician Boat Designer Urology 02/03/23 [place] [address] [place] [address] Assigned PCP 02/06/23 Alissa Perez PA-C [address] [place] [address] 846105 Physician Boat Designer Surgery 09/04/23 Lakshmi Wilhelm PA-C [address] [place] [address] 427715 Physician Boat Designer Urology 09/16/23 Carlos Joyner MD 9 [place], [place] 722875 Urology 01/26/25 Jadon Floyd MD [address] [place] [address] 862525 Physician Physical Medicine and Rehabilitation 01/31/25 [place] [address] [place] [address] Assigned Musculoskeletal Provider 02/15/25 Tanisha Marlow 4120 [facility] [address] 03/30/24 documented as of this encounter
--- OUTSIDE RECORDS SUMMARY | 2025-03-12 19:27 | XMS_ITS | Encounter Summary ---
Author Organization [facility] Address [address] [place] [address] Care Team Providers Care Claims Analyst Name Role Phone Carlos Joyner MD Unavailable [phone] Jadon Murray MD Unavailable [phone] Maru Villagomez RN Unavailable Unavailable Ang Slade MD Unavailable [phone] Carlos Joyner MD Unavailable +[phone] Ang Slade MD Unavailable [phone] Lakshmi Wilhelm-C Unavailable [phone] Heladio Willoughby MD Primary Care Provider [phone] Heladio Willoughby MD Unavailable Alissa Perez PA-C Unavailable [phone] Lakshmi Wilhelm PA-C Unavailable [phone] Carlos Joyner MD Unavailable +[phone] Jadon Floyd MD Unavailable +[phone] Cayden Bejarano MD Unavailable Reason for Visit * Reason Onset Date Comments Appointment 03/07/202504/05 Appt Encounter Details Date Type Department Care Team (Late st Contact Info) Description 03/07/2025 [facility] Physical Medicine and Rehabilitation [address] [place] [address] Jadon Floyd MD [address] [place] [address] Appointment (04/05 Appt) Social History Tobacco Use Types Packs/Day [...] encounter Miscellaneous Notes * Telephone Encounter - Joshua Desai - 03/07/2025 11:23 AM CDT Attempted Call (1st Attempt) for patient to call [phone]. Please reschedule 04/[address] Brothers to be a New PM&R with Dr. Floyd, per clinic request documented in this encounter Plan of Treatment Upcoming Encounters Date Type Department Care Team (Late st Contact Info) Description 03/23/2025 12:45 PM CDT Appointment [facility] Imaging [address] [place] [address] [place] [address] [place] [address] 03/23/2025 1:30 PM CDT Hospital Encounter [facility] [address] [facility] [address] [place] [phone] [place] [address] [place] [address] 03/25/2025 10:20 AM CDT Virtual Visit [facility] Sports Medicine [facility] [address] [facility] [address] [place] [address] [place] [address] [place] [address] 04/04/2025 12:00 PM CHEMIST BIOLOGICAL Office Visit [facility] Sleep [address] [phone] Sugey Mccoy, SERVICE CONTROL OPERATOR [address] [address] 05/05/2025 9:00 AM CHEMIST BIOLOGICAL Office Visit [facility] Rehabilitation Clinic [address] [phone] Jadon Floyd MD [address] [place] [address] 026255 05/30/2025 10:20 AM CHEMIST BIOLOGICAL Appointment [facility] Imaging [address] [facility] [address] [place] [phone] Carlos Joyner MD [address] [place] [address] 231595 05/31/2025 2:00 PM CHEMIST BIOLOGICAL Virtual Visit [facility] Urology Clinic [address] [phone] Carlos Joyner MD 9 [place] [address] 07/25/2025 11:00 AM CHEMIST BIOLOGICAL Office Visit [facility] [address] [place] [address] [place] [address] [facility] [place], [place] [phone] documented as of this encounter Visit Diagnoses Not on filedocumented in this encounter Care Teams Claims Analyst Relationship Specialty Start [place] [address] [address] [place], [place] [phone] PCP - General 03/05/23 Carlos Joyner MD [address] [place] [address] [phone] Urology 12/09/19 Jadon Murray MD [facility] [address] [address] Referring Physician Pediatric Surgery 12/09/19 Maru Villagomez, OTILIO Registered Nurse 12/10/19 Ang Slade MD [address] [place] [address] 394 [place] [address] Urology 04/24/20 Carlos Joyner MD [address] [place] [address] 963305 Assigned Surgical Provider 12/24/20 Ang Slade MD [address] [place] [address] 394 [place] [address] Urology 12/18/22 Lakshmi Wilhelm PA-C [address] [place] [address] Physician Security Shift Manager Urology 02/03/23 [place] [address] [facility] [place] [address] Assigned PCP 02/06/23 Alissa Perez PA-C [address] [place] [address] Physician Security Shift Manager Surgery 09/04/23 Lakshmi Wilhelm PA-C [address] [place] [address] Physician Security Shift Manager Urology 09/16/23 Carlos Joyner MD [address] [place] [address] 528645 Urology 01/26/25 Jadon Floyd MD [address] [place] [address] Physician Physical Medicine and Rehabilitation 01/31/25 [place] [address] [place] [address] Assigned Musculoskeletal Provider 02/15/25 Tanisha Marlow 4120 [facility] [address] 03/30/24 documented as of this encounter
--- OUTSIDE RECORDS SUMMARY | 2025-03-12 19:27 | XMS_ITS | Encounter Summary ---
Author Organization [facility] Address [address] [place] [address] Care Team Providers Care Weathercaster Name Role Phone Carlos Joyner MD Unavailable [phone] Jadon Murray MD Unavailable [phone] Maru Villagomez RN Unavailable Unavailable Ignacia Duran MD Primary Care Provider [phone] Ang Slade MD Unavailable [phone] Carlos Joyner MD Unavailable +[phone] Ang Slade MD Unavailable [phone] Lakshmi Wilhelm-C Unavailable [phone] Heladio Willoughby MD Primary Care Provider [phone] Heladio Willoughby MD Unavailable Alissa Perez PA-C Unavailable [phone] HiLakshmi morales-C Unavailable [phone] Aidee Valero PA-C Unavailable [phone] Carlos Joyner MD Unavailable [phone] Jadon Floyd MD Unavailable +[phone] Cayden Bejarano MD Unavailable Encounter Details Date Type Department Care Team (Late st Contact Info) Description 01/06/2023 [facility] [address] [place] [address] Lisette Mariee Social History Tobacco Use Types [...] Info) Description 03/23/2025 12:[address] [facility] [address] [facility] [address] [place] [address] [place] [address] [place] [address] 03/23/2025 1:30 PM CDT Hospital Encounter [facility] [address] [facility] [address] [place] [address] Cayden [place] [address] [place] [address] 03/25/2025 10:20 AM CDT Virtual Visit [facility] [place] [address] [facility] [address] [place] [address] [place] [address] [place] [address] 04/04/2025 12:00 PM REFRIGERATION ENGINE OPERATOR Office Visit [facility] Sleep Center [address] [phone] Sugey Mccoy, BEATER OUT LEVELING MACHINE [facility] [address] [place] [address] [address] [place] [address] 05/05/2025 9:00 AM REFRIGERATION ENGINE OPERATOR Office Visit [facility] Physical Medicine [facility] Rehabilitation Clinic [address] 3rd [place] [phone] Jadon Floyd MD [address] [place] [address] 05/30/2025 10:20 AM REFRIGERATION ENGINE OPERATOR Appointment [facility] [address] [facility] [address] [place] [address] Carlos Joyner MD [address] [place] [address] 891535 05/31/2025 2:00 PM REFRIGERATION ENGINE OPERATOR Virtual Visit [facility]rology Clinic [address] [place] [phone] Carlos Joyner MD [address] [place] [address] 058135 07/25/2025 11:00 AM REFRIGERATION ENGINE OPERATOR Office Visit [facility] [address] [place] [address] [place] [address] [place] [address] documented as of this encounter Visit Diagnoses Not on filedocumented in this encounter Additional Health Concerns Infection Onset Date Last Indicated Resolved Time MRSA Comment:Added from external infection. Pt has had Staph infections but never MRSA from Care everywhere chart review. Removing MRSA 9.14.23 06/17/2019 02/06/2023 9:41 AM C DT documented as of this encounter Care Teams Weathercaster Relationship Specialty Start Date End Date Omann, Ignacia M, MD PCP - General Pediatrics 01/20/20 03/04/23 [place] [address] [place] [address] PCP - General 03/05/23 Carlos Joyner MD [address] [place] [address] Urology 12/09/19 Jadon Murray MD [facility] 2530 [facility] [address] [place], [place] [phone] Referring Physician Pediatric Surgery 12/09/19 Maru Villagomez, RN Registered Nurse 12/10/19 Ang Slade MD [address] [place] [address] 394 [place], [place] 222915 Urology 04/24/20 Carlos Joyner MD [address] [place] [address] [phone] Assigned Surgical Provider 12/24/20 Ang Slade MD [address] [place] [address] 394 [place] [address] Urology 12/18/22 Lakshmi Wilhelm PA-C [address] [place] [address] Physician Farmworker Pullet Farm Urology 02/03/23 [place] [address] [place] [address] Assigned PCP 02/06/23 Alissa Perez PA-C [address] [place] [address] Physician Farmworker Pullet Farm Surgery 09/04/23 Lakshmi Wilhelm PA-C [address] [place] [address] Physician Farmworker Pullet Farm Urology 09/16/23 Aidee Valero PA-C [address] [place] [address] Assigned Musculoskeletal Provider 04/17/24 02/14/25 Carlos Joyner MD [address] [place] [address] Urology 01/26/25 Jadon Floyd MD [address] [place] [address] Physician Physical Medicine and Rehabilitation 01/31/25 [place] [address] [place] [address] Assigned Musculoskeletal Provider 02/15/25 Tanisha Marlow 4120 [facility] [address] 03/30/24 documented as of this encounter
--- OUTSIDE RECORDS SUMMARY | 2025-03-12 19:27 | XMS_ITS | Encounter Summary ---
Author Organization [place] Address [address] [place] [address] Care Team Providers Care Fountain Jerk Name Role Phone Carlos Joyner MD Unavailable + [phone] Jadon Murray MD Unavailable +[phone] Maru Villagomez RN Unavailable Unavailable Ang Slade MD Unavailable +[phone] Carlos Joyner MD Unavailable +[phone] Ang Slade MD Unavailable +[phone] Lakshmi Wilhelm-C Unavailable +[phone] Heladio Willoughby MD Primary Care Provider [phone] Heladio Willoughby MD Unavailable Alissa Perez PA-C Unavailable +[phone] Lakshmi Wilhelm-C Unavailable +[phone] Aidee Valero PA-C Unavailable +[phone] Carlos Joyner MD Unavailable +[phone] Jadon Floyd MD Unavailable +[phone] Cayden Bejarano MD Unavailable Encounter Details Date Type Department Care Team (Late st Contact Info) Description 09/29/2024 [facility] [place] [address] [facility] 4th [place] [address] Hattie Wing RN Social History [...] Answer Date Recorded PHQ-2 Score 0 09/13/2024 [facility] - Occupational [...] Info) Description 03/23/2025 12:45 PM CDT Appointment [facility] [address] [facility] [address] [place] [address] [place] [address] [place] [address] 03/23/2025 1:30 PM CDT Hospital Encounter [facility] [address] [facility] [address] [place] [address] [place] [address] [address] [place] [address] 03/25/2025 10:20 AM CDT Virtual Visit [facility] [place] [address] [place] [address] [address] [place] [address] [place] [address] [place] [address] 04/04/2025 12:00 PM WEB MARKETING COORDINATOR Office Visit [facility] Sleep Center [address] [phone] Sugey Mccoy APRN [address] 878434 05/05/2025 9:00 AM WEB MARKETING COORDINATOR Office Visit [facility] Rehabilitation Clinic [address] [place] [address] Jadon Floyd MD [address] [place] [address] 237715 05/30/2025 10:20 AM WEB MARKETING COORDINATOR Appointment [facility] [address] [place] [address] Carlos Joyner MD [address] [place] [address] 376105 05/31/2025 2:00 PM WEB MARKETING COORDINATOR Virtual Visit [facility] Urology Clinic [address] [place] [phone] Carlos Joyner MD [address] [place] [address] 800695 07/25/2025 11:00 AM WEB MARKETING COORDINATOR Office Visit [facility] [address] [place] [address] [place] [address] [place], [place] [phone] documented as of this encounter Visit Diagnoses Not on filedocumented in this encounter Care Teams Fountain Jerk Relationship Specialty Start [place] [address] [place], [place] [phone] PCP - General 03/05/23 Carlos Joyner MD [address] [place] [address] Urology 12/09/19 Jadon Murray MD [facility] 2530 [facility] 550 [place] [address] Referring Physician Pediatric Surgery 12/09/19 Maru Villagomez, RN Registered Nurse 12/10/19 Ang Slade MD 420 [facility] 394 [place], [place] 714525 MD Urology 04/24/20 Carlos Joyner MD [address] [place] [address] [id number] Assigned Surgical Provider 12/24/20 Ang Slade MD 420 [facility] 394 [place], [place] 258605 MD Urology 12/18/22 Lakshmi Wilhelm PA-C [address] [place] [address] 256185 Physician Reproduction Machine Loader Urology 02/03/23 [place] [address] [place] [address] Assigned PCP 02/06/23 Alissa Perez PA-C [address] [place] [address] 216425 Physician Reproduction Machine Loader Surgery 09/04/23 Lakshmi Wilhelm PA-C [address] [place] [address] 225755 Physician Reproduction Machine Loader Urology 09/16/23 Aidee Valero PA-C [address] [place] [address] 8[address] Assigned Musculoskeletal Provider 04/17/24 02/14/25 Carlos Joyner MD [address] [place] [address] Urology 01/26/25 Jadon Floyd MD 9 [place] [address] Physician Physical Medicine and Rehabilitation 01/31/25 [place] [address] [place] [address] Assigned Musculoskeletal Provider 02/15/25 Tanisha Marlow 4120 [facility] [address] 03/30/24 documented as of this encounter
--- OUTSIDE RECORDS SUMMARY | 2025-03-12 19:27 | XMS_ITS | Clinical Summary ---
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 Resolved Problems Problem Noted Date Diagnosed Date Resolved Date Adjustment disorder with mix ed disturbance of emotions and conduct 07/04/2011 11/23/2018 Immunizations Immunization Administration Dates Next Due DTaP 01/18/2008,05/06/2005 [id number] (Pediarix) 05/27/2003,03/21/2003,0 2002 HIB PRP-T (ActHIB,Hiberix) 05/27/2003,03/21/2003 [...] on file Legal Sex Female 6:29 AM RESEARCH DIETITIAN Gender Identity Not on file Sexual Orientation [...] Comments Blood Pressure 123/80 07/12/2021 1:30 PM RESEARCH DIETITIAN Pulse 98 07/12/2021 1:30 PM RESEARCH DIETITIAN Temperature 36.9 C (98.5 F) 07/12/2021 1:30 PM RESEARCH DIETITIAN Respiratory Rate 18 07/03/2015 5:27 PM RESEARCH DIETITIAN Oxygen Saturation 98% 07/12/2021 1:30 PM RESEARCH DIETITIAN Inhaled Oxygen Concentration - - Weight 61.2 kg (135 lb) 07/03/2015 5:27 PM RESEARCH DIETITIAN Height - - Body Mass Index - [...] Payer (Ef fective 2022-Present) Name:Laina Escudero Member ID:[id number] Relation to Subscriber:Self Name:Laina Escudero Subscriber ID:[id number] Payer ID:Not on file Group ID:Not on file Type:Not on file Address: ATTN: [address]S [id number] [place] [address] Advance Directives Documents on File Type Date Recorded Patient Certified Tumor Registrar Expl anation Power of Pea Viner Mechanic 06/24/2023 1:00 PM Care Teams Inspecting Supervisor Relationship Specialty Start Date End Date Heladio Willoughby MD PCP - General Family Practice 10/04/24
--- OUTSIDE RECORDS SUMMARY | 2025-03-12 19:27 | XMS_ITS | Encounter Summary ---
Author Organization [place] Address [address] [place] [address] Care Team Providers Care Flight Information Expediter Name Role Phone Carlos Joyner MD Unavailable +[phone] Jadon Murray MD Unavailable +[phone] Maru Villagomez RN Unavailable Unavailable Ang Slade MD Unavailable +[phone] Carlos Joyner MD Unavailable +[phone] Ang Slade MD Unavailable +[phone] Lakshmi WilhelmC Unavailable +[phone] Heladio Willoughby MD Primary Care Provider [phone] Heladio Willoughby MD Unavailable Alissa Perez-Juan A Unavailable [phone] Lakshmi Wilhelm PA-C Unavailable +[phone] Carlos Joyner MD Unavailable +[phone] Jadon Floyd MD Unavailable +[phone] Cayden Bejarano MD Unavailable Encounter Details Date Type Department Care Team (Latest Contact Info) Description 03/10/2025 Travel Social History Tobacco Use Types Packs/Day [...] Answer Date Recorded PHQ-2 Score 0 09/13/2024 [facility] [...] Description 03/23/2025 12:[address] [facility] [address] [facility] [address] [place] [phone] [place] [id number] [place] [address] [address] [place] [address] 03/23/2025 1:30 PM CDT Hospital Encounter [facility] [address] [facility] [address] [place] [phone] [place] [address] [facility] [address] [place] [address] 03/25/2025 10:20 AM CDT Virtual Visit [facility] Sports Medicine [facility] [place] [address] [facility] [address] [place] [address] [place] [address] [facility] [address] [place] [address] 04/04/2025 12:00 PM WAREHOUSE RECEIVING SUPERVISOR Office Visit [facility] Sleep Center [address] [address] Sugey Mccoy, LATIN DANCE INSTRUCTOR MAINFRAME SOFTWARE DEVELOPER [address] [place] [address] 05/05/2025 9:00 AM WAREHOUSE RECEIVING SUPERVISOR Office Visit [facility] Physical Medicine and Rehabilitation Clinic [address] 3rd [place] [address] Jadon Floyd MD [address] [place] [address] 497935 05/30/2025 10:20 AM WAREHOUSE RECEIVING SUPERVISOR Appointment [facility] [address] [place] [address] [place] [phone] Carlos Joyner MD [address] [place] [address] 238075 05/31/2025 2:00 PM WAREHOUSE RECEIVING SUPERVISOR Virtual Visit [facility] Urology Clinic [address] 4th [place] [address] Carlos Joyner MD [address] [place] [address] [phone] 07/25/2025 11:00 AM WAREHOUSE RECEIVING SUPERVISOR Office Visit [facility] [address] [place] [phone] [place] [address] [place], [place] [phone] documented as of this encounter Visit Diagnoses Not on filedocumented in this encounter Care Teams Flight Information Expediter Relationship Specialty Start [place] [address] [place] [address] PCP - General 03/05/23 Carlos Joyner MD [address] [place] [address] [phone] Urology 12/09/19 Jadon Murray MD [facility] 2530 [facility] 550 [place] [address] Referring Physician Pediatric Surgery 12/09/19 Maru Villagomez, RN Registered Nurse 12/10/19 Ang Slade MD [address] [place] [address] 394 [place], [place] 108065 Urology 04/24/20 Carlos Joyner MD [address] [place] [address] 814335 Assigned Surgical Provider 12/24/20 Ang Slade MD [address] [place] [address] 019405 Urology 12/18/22 Lakshmi Wilhelm PA-C [address] [place] [address] 587025 Physician Replanter Urology 02/03/23 [place] [address] [place] [address] Assigned PCP 02/06/23 Alissa Perez PA-C [address] [place] [address] 209835 Physician Replanter Surgery 09/04/23 Lakshmi Wilhelm PA-C [address] [place] [address] 499865 Physician Replanter Urology 09/16/23 Carlos Joyner MD 9 [place], [place] 065815 Urology 01/26/25 Jadon Floyd MD [address] [place] [address] 072885 Physician Physical Medicine and Rehabilitation 01/31/25 [place] [address] [place] [address] Assigned Musculoskeletal Provider 02/15/25 Tanisha Marlow 4120 [facility] [address] 03/30/24 documented as of this encounter
--- OUTSIDE RECORDS SUMMARY | 2025-03-12 19:27 | XMS_ITS | Encounter Summary ---
Author Organization [place] Address [address] [place] [address] Care Team Providers Care Spot Machine Operator Name Role Phone Carlos Joyner MD Unavailable + [phone] Jadon Murray MD Unavailable +[phone] Maru Villagomez RN Unavailable Unavailable Ang Slade MD Unavailable +[phone] Carlos Joyner MD Unavailable + [phone] Ang Slade MD Unavailable +[phone] Lakshmi Wilhelm-C Unavailable +[phone] Heladio Willoughby MD Primary Care Provider [phone] Heladio Willoughby MD Unavailable Alissa Perez PA-C Unavailable [phone] Lakshmi Wilhelm PA-C Unavailable +[phone] Aidee Valero PA-C Unavailable +[phone] Carlos Joyner MD Unavailable + [phone] Jadon Floyd MD Unavailable +[phone] Cayden Bejarano MD Unavailable Encounter Details Date Type Department Care Team (Late st Contact Info) Description 09/23/[address] [address] [place] [address] [place] [address] Social History Tobacco Use Types Packs/Day Years [...] Answer Date Recorded PHQ-2 Score 0 09/13/2024 [facility] - [...] routing back. Heladio Elder. MD [facility] * Telephone Encounter - Kasia Kang - 09/24/2024 2:54 PM CDT Referral is still pending. Routing to provider to sign off and route back to TC's to fax. Kasia Kang Lead Tennis Player [facility] documented in this encounter Plan of Treatment Upcoming Encounters Date Type Department Care Team (Late st Contact Info) Description 03/23/2025 12:45 PM CDT Appointment [facility] [address] [place] [place] [phone] Cayden Bejarano MD [address] [place] [address] [address] [place] [address] 03/23/2025 1:30 PM CDT Hospital Encounter [facility] [address] [place] [phone] [place] [address] [place] [address] 03/25/2025 10:20 AM CDT Virtual Visit [facility] [place] [address] [place] [address] [address] [place] [address] [place] [address] [place] [address] 04/04/2025 12:00 PM COST SPECIALIST Office Visit [facility] [address] [place] [phone] Sugey Mccoy, WEB SERVICES MANAGER[address] [address] 05/05/2025 9:00 AM COST SPECIALIST Office Visit [facility] Rehabilitation [facility] [address] [place] [phone] Jadon Floyd MD [address] [place] [address] 527185 05/30/2025 10:20 AM COST SPECIALIST Appointment [facility] [address] [facility] [address] [place] [address] Carlos Joyner MD [address] [place] [address] 05/31/2025 2:00 PM COST SPECIALIST Virtual Visit [facility] Clinic [address] [place] [phone] Carlos Joyner MD [address] [place] [address] 07/25/2025 11:00 AM COST SPECIALIST Office Visit [facility] [address] [place] [phone] [place] [address] [address] [place] [phone] documented as of this encounter Visit Diagnoses Not on filedocumented in this encounter Care Teams Spot Machine Operator Relationship Specialty Start [place] [address] [address] [place] [phone] PCP - General 03/05/23 Carlos Joyner MD [address] [place] [address] 129635 Urology 12/09/19 Jadon Murray MD [facility] [address] [phone] Referring Physician Pediatric Surgery 12/09/19 Maru Villagomez, RN Registered Nurse 12/10/19 Ang Slade MD [address] [place] [address] 077065 Urology 04/24/20 Carlos Joyner MD [address] [place] [address] 99878 Assigned Surgical Provider 12/24/20 Ang Slade MD [address] [place] [address] 497435 Urology 12/18/22 Lakshmi Wilhelm PA-C [address] [place] [address] 673105 Physician Yarn Spinner Urology 02/03/23 [place] [address] [place] [address] Assigned PCP 02/06/23 Alissa Perez PA-C [address] [place] [address] 028775 Physician Yarn Spinner Surgery 09/04/23 Lakshmi Wilhelm PA-C [address] [place] [address] 913585 Physician Yarn Spinner Urology 09/16/23 Aidee Valero PA-C [address] [place] [address] 691965 Assigned Musculoskeletal Provider 04/17/24 02/14/25 Carlos Joyner MD [address] [place] [address] 138065 Urology 01/26/25 Jadon Floyd MD [address] [place] [address] 221115 Physician Physical Medicine and Rehabilitation 01/31/25 [place] [address] [place] [address] Assigned Musculoskeletal Provider 02/15/25 Tanisha Marlow 4120 [facility] [address] 03/30/24 documented as of this encounter
--- OUTSIDE RECORDS SUMMARY | 2025-03-12 19:27 | XMS_ITS | Encounter Summary ---
Author Organization [place] Address [address] [place] [address] Care Team Providers Care Social Services Director Name Role Phone Carlos Joyner MD Unavailable +[phone] Jadon Murray MD Unavailable +[phone] Maru Villagomez RN Unavailable Unavailable Ignacia Duran MD Primary Care Provider +[phone] Ang Slade MD Unavailable +[phone] Carlos Joyner MD Unavailable +[phone] Ang Slade MD Unavailable +[phone] Lakshmi Wilhelm-C Unavailable +[phone] Heladio Willoughby MD Primary Care Provider [phone] Heladio Willoughby MD Unavailable Alissa Perez PA-C Unavailable [phone] LaLakshmi morales-C Unavailable +[phone] Aidee Valero PA-C Unavailable +[phone] Carlos Joyner MD Unavailable +[phone] Jadon Floyd MD Unavailable [phone] Cayden Bejarano MD Unavailable Encounter Details Date Type Department Care Team (Late st Contact Info) Description 12/30/2022 [facility] Urology [address] [place] [phone] Analisa Palacio RN Social History Tobacco Use [...] 12:45 PM CDT Appointment [facility] [address] [place] [address] [place]den [place]jarano [place] [address] [place] [address] [address] [place] [address] 03/23/2025 1:30 PM CDT Hospital Encounter [facility] [address] [place] [address] Cayden Bejarano [place] [address] [place] [address] 03/25/2025 10:20 AM CDT Virtual Visit [facility] [place] [address] [place] [address] Cayden [place]jarano [place] [address] [place] [address] [address] [place] [address] 04/04/2025 12:00 PM CAR DEALER Office Visit [facility] Sleep Center [address] [phone] Sugey Mccoy, EMAIL MARKETER [facility] [address] [place] [address] [address] [place], [place] 477394 05/05/2025 9:00 AM CAR DEALER Office Visit [facility] Physical Medicine and Rehabilitation Clinic [address] 3rd [place] [address] Jadon Floyd MD [address] [place] [address] 05/30/2025 10:20 AM CAR DEALER Appointment [facility] [address] [facility] [address] [place] [address] Carlos Joyner MD [address] [place] [address] 064625 05/31/2025 2:00 PM CAR DEALER Virtual Visit [facility] Urology Clinic [address]th [place] [address] Carlos Joyner MD [address] [place] [address] 864045 07/25/2025 11:00 AM CAR DEALER Office Visit [facility] [address] [place] [address] [place] [address] [place] [address] documented as of this encounter Visit Diagnoses Not on filedocumented in this encounter Additional Health Concerns Infection Onset Date Last Indicated Resolved Time MRSA Comment:Added from external infection. Pt has had Staph infections but never MRSA from Care everywhere chart review. Removing MRSA 9.14.23 06/17/2019 02/06/2023 9:41 AM C DT documented as of this encounter Care Teams Social Services Director Relationship Specialty Start Date End Date Ignacia Duran MD PCP - General Pediatrics 01/20/20 03/04/23 [place] [address] [place] [address] PCP - General 03/05/23 Carlos Joyner MD [address] [place] [address] Urology 12/09/19 Jadon Murray MD [facility] 2530 [facility] 550 [place], [place] [phone] Referring Physician Pediatric Surgery 12/09/19 Maru Villagomez, RN Registered Nurse 12/10/19 Ang Slade MD [address] [place] [address] 394 [place], [place] 966025 Urology 04/24/20 Carlos Joyner MD [address] [place] [address] 100385 Assigned Surgical Provider 12/24/20 Ang Slade MD 420 [facility] 394 [place] [address] Urology 12/18/22 Lakshmi Wilhelm PA-C [address] [place] [address] Physician Electrolysist Urology 02/03/23 [place] [address] [place] [address] Assigned PCP 02/06/23 Alissa Perez PA-C [address] [place] [address] Physician Electrolysist Surgery 09/04/23 Lakshmi Wilhelm PA-C [address] [place] [address] Physician Electrolysist Urology 09/16/23 Aidee Valero PA-C [address] [place] [address] Assigned Musculoskeletal Provider 04/17/24 02/14/25 Carlos Joyner MD [address] [place] [address] Urology 01/26/25 Jadon Floyd MD [address] [place] [address] Physician Physical Medicine and Rehabilitation 01/31/25 [place] [address] [place] [address] Assigned Musculoskeletal Provider 02/15/25 Tanisha Marlow 4120 [facility] [address] 03/30/24 documented as of this encounter
--- OUTSIDE RECORDS SUMMARY | 2025-03-12 19:27 | XMS_ITS | Encounter Summary ---
Author Organization [facility] Address [address] [place] [address]. [place] [address] Care Team Providers Care Business Line Manager Name Role Phone Carlos Joyner MD Unavailable [phone] Jadon Murray MD Unavailable [phone] Maru Villagomez RN Unavailable Unavailable Ang Slade MD Unavailable [phone] Carlos Joyner MD Unavailable [phone] Ang Slade MD Unavailable [phone] Lakshmi WilhelmC Unavailable [phone] Heladio Willoughby MD Primary Care Provider [phone] Heladio Willoughby MD Unavailable Alissa Perez PA-C Unavailable [phone] MdLakshmi morales PA-C Unavailable [phone] Carlos Joyner MD Unavailable + [phone] Jadon Floyd MD Unavailable [phone] Cayden Bejarano MD Unavailable Encounter Details Date Type Department Care Team (Late st Contact Info) Description 03/08/2025 Telephone [facility] [address] [place] [address] [place] [address] [place] [address] Social History Tobacco Use Types [...] Telephone Encounter - Tamara Islas RN - 03/08/2025 9:43 AM CDT Received a call from Nat client solutions director for the [employer] who is working with the pt - [phone] - [facility]. Not seeing a consent to communicate She needs to know if she should take her to the hospital. There was a lot of blood with her morningflush to her bladder - they do a straight cath - straight cath no blood. When they flushed it therewas blood. They flush the cath 4 times and by the 4th time there was not blood. There was no blood in the straight cath. This has not been noted before. She said there was blood in the flush, not theurine. She said she reached out to her guardian, but she was in a meeting and felt this was kind of an emergency - Tanisha Marlow. Advised to reach out to Urology for recommendations. documented in this encounter Plan of Treatment Upcoming Encounters Date Type Department Care Team (Late st Contact Info) Description 03/23/2025 12:45 PM CDT Appointment [facility] [address] [facility] [address] [place] [address] [place] [address] [place] [address] 03/23/2025 1:30 PM CDT Hospital Encounter [facility] [address] [facility] [address] [place] [address] [place] [address] [place] [address] 03/25/2025 10:20 AM CDT Virtual Visit [facility] [address] [place] [address] [address] [place] [address] [place] [address] [place] [address] 04/04/2025 12:00 PM COMBAT SYSTEMS OPERATOR Office Visit [facility] [address] [phone] Sugey Mccoy, SENIOR COST ACCOUNTANT [address] [address] 05/05/2025 9:00 AM COMBAT SYSTEMS OPERATOR Office Visit [facility] [address] 3rd [place] [address] Jadon Floyd MD [address] [place] [address] [phone] 05/30/2025 10:20 AM COMBAT SYSTEMS OPERATOR Appointment [facility] [address] [facility] [address] [place] [address] Carlos Joyner MD [address] [place] [address] 05/31/2025 2:00 PM COMBAT SYSTEMS OPERATOR Virtual Visit [facility] Clinic [address] 4th [place] [address] Carlos Joyner MD [address] [place] [address] 07/25/2025 11:00 AM COMBAT SYSTEMS OPERATOR Office Visit [facility] [address] [place] [phone] [place] [address] [place], [place] [phone] documented as of this encounter Visit Diagnoses Not on filedocumented in this encounter Care Teams Business Line Manager Relationship Specialty Start Date End [place] [id number] [place], [place] [address], [place] [phone] PCP - General 03/05/23 Carlos Joyner MD [address] [place] [address] Urology 12/09/19 Jadon Murray MD [facility] [address] [address] Referring Physician Pediatric Surgery 12/09/19 Maru Villagomez, OTILIO Registered Nurse 12/10/19 Ang Slade MD [address] [place] [address] 394 [place] [address] Urology 04/24/20 Carlos Joyner MD [address] [place] [address] Assigned Surgical Provider 12/24/20 Ang Slade MD [address] [place] [address] Urology 12/18/22 Lakshmi Wilhelm PA-C [address] [place] [address] Physician Rag Grader Urology 02/03/23 [place] [address] [place] [address] Assigned PCP 02/06/23 Alissa Perez PA-C [address] [place] [address] Physician Rag Grader Surgery 09/04/23 Lakshmi Wilhelm PA-C [address] [place] [address]473 Physician Rag Grader Urology 09/16/23 Carlos Joyner MD [address] [place] [address] Urology 01/26/25 Jadon Floyd MD [address] [place] [address] 707945 Physician Physical Medicine and Rehabilitation 01/31/25 [place] [address] [place] [address] Assigned Musculoskeletal Provider 02/15/25 Tanisha Marlow [facility] [address] 03/30/24 documented as of this encounter
--- OUTSIDE RECORDS SUMMARY | 2025-03-12 19:27 | XMS_ITS | Encounter Summary ---
Author Organization [place] Address [address] [place] [address] Care Team Providers Care General Agent Name Role Phone Carlos Joyner MD Unavailable [phone] Jadon Murray MD Unavailable [phone] Maru Villagomez RN Unavailable Unavailable Ignacia Duran MD Primary Care Provider [phone] Ang Slade MD Unavailable [phone] Carlos Joyner MD Unavailable [phone] Ang Slade MD Unavailable [phone] Lakshmi Wilhelm-C Unavailable +[phone] Heladio Willoughby MD Primary Care Provider [phone] Heladio Willoughby MD Unavailable Alissa Perez PA-C Unavailable [phone] LaLakshmi morales-C Unavailable [phone] Aidee Valero PA-C Unavailable [phone] Carlos Joyner MD Unavailable [phone] Jadon Floyd MD Unavailable [phone] Cayden Bejarano MD Unavailable Encounter Details Date Type Department Care Team (Late st Contact Info) Description 01/07/2023 [facility] Urology [address] [place] [phone] Analisa Palacio RN Social History Tobacco Use [...] Info) Description 03/23/2025 12:45 PM CDT Appointment [facility] [address] [place] [address] Cayden [place]jarano MD [address] [place] [address] [address] [place] [address] 03/23/2025 1:30 PM CDT Hospital Encounter [facility] [address] [place] [address] Cayden Bejarano [place] [address] [place] [address] 03/25/2025 10:20 AM CDT Virtual Visit [facility] [place] [address] [place] [address] [place] [address] [place] [address] [address] [place] [address] 04/04/2025 12:00 PM INTERVENTION TEACHER Office Visit [facility] Sleep Center [address] [phone] Sugey Mccoy, RETAIL SALESPERSON [facility] [address] [place] [address] [address] [place], [place] 8[address]24 05/05/2025 9:00 AM INTERVENTION TEACHER Office Visit [facility] [address] 3rd [place] [address] Jadon Floyd MD [address] [place] [address] 05/30/2025 10:20 AM INTERVENTION TEACHER Appointment [facility] [address] [facility] [address] [place] [address] Carlos Joyner MD [address] [place] [address] 580315 05/31/2025 2:00 PM INTERVENTION TEACHER Virtual Visit [facility] Urology Clinic [address] [place] [address] Carlos Joyner MD [address] [place] [address] 380275 07/25/2025 11:00 AM INTERVENTION TEACHER Office Visit [facility] [address] [place] [address] [place] [address] [place] [address] documented as of this encounter Visit Diagnoses Not on filedocumented in this encounter Additional Health Concerns Infection Onset Date Last Indicated Resolved Time MRSA Comment:Added from external infection. Pt has had Staph infections but never MRSA from Care everywhere chart review. Removing MRSA 9.14.23 06/17/2019 02/06/2023 9:41 AM C DT documented as of this encounter Care Teams General Agent Relationship Specialty Start Date End Date Ignacia Duran MD PCP - General Pediatrics 01/20/20 03/04/23 [place] [address] [place] [address] PCP - General 03/05/23 Carlos Joyner MD [address] [place] [address] Urology 12/09/19 Jadon Murray MD [facility] 2530 [facility] 550 [place], [place] [id number] Referring Physician Pediatric Surgery 12/09/19 Maru Villagomez, RN Registered Nurse 12/10/19 Ang Slade MD [address] [place] [address] 394 [place], [place] 126555 Urology 04/24/20 Carlos Joyner MD [address] [place] [address] 273015 Assigned Surgical Provider 12/24/20 Ang Slade MD 420 [facility] 394 [place] [address] Urology 12/18/22 Lakshmi Wilhelm PA-C [address] [place] [address] Physician Bee Raiser Urology 02/03/23 [place] [address] [place] [address] Assigned PCP 02/06/23 Alissa Perez PA-C [address] [place] [address] Physician Bee Raiser Surgery 09/04/23 Lakshmi Wilhelm PA-C [address] [place] [address] Physician Bee Raiser Urology 09/16/23 Aidee Valero PA-C [address] [place] [address]92 Assigned Musculoskeletal Provider 04/17/24 02/14/25 Carlos Joyner MD [address] [place] [address] Urology 01/26/25 Jadon Floyd MD [address] [place] [address] Physician Physical Medicine and Rehabilitation 01/31/25 [place] [address] [place] [address] Assigned Musculoskeletal Provider 02/15/25 Tanisha Marlow 4120 [facility] [address] 03/30/24 documented as of this encounter
--- OUTSIDE RECORDS SUMMARY | 2025-03-12 19:28 | XMS_ITS | Encounter Summary ---
Author Organization [place] Address [address] [place] [address] Care Team Providers Care Timber Packer Name Role Phone Carlos Joyner MD Unavailable [phone] Jadon Murray MD Unavailable [phone] Maru Villagomez RN Unavailable Unavailable Ang Slade MD Unavailable [phone] Carlos Joyner MD Unavailable [phone] Ang Slade MD Unavailable [phone] Lakshmi Wilhelm-C Unavailable [phone] Heladio Willoughby MD Primary Care Provider [phone] Heladio Willoughby MD Unavailable Alissa Perez PA-C Unavailable [phone] AlLakshmi morales PA-C Unavailable [phone] Aidee Valero PA-C Unavailable [phone] Carlos Joyner MD Unavailable +[phone] Jadon Floyd MD Unavailable [phone] Reason for Visit * Reason Onset Date Comments Prior Auth - Medication 02/03/2025 Acetohyd roxamic Acid (LITHOSTAT) 250 MG TABS - PA APPROVED Encounter Details Date Type Department Care Team (Late st Contact Info) Description 02/03/2025 [facility] [place] [address] [address] Carlos Joyner MD 909 [place] [address] Prior Auth - Medication (Acetohydroxamic [...] 05/25/2025 Approved Dose/Quantity: Reference #: Insurance Company: [employer] Part D - Expected CoPay: $ CoPay Card Available: No Financial Assistance Needed: Which Pharmacy is filling the prescription: [id number] [place] [address] Pharmacy Notified: YES Patient Notified: Instructed pharmacy to notify patient when script is ready to shrimp picker/ship. * Telephone Encounter - Cirilo Ferreira - [...] Part D - Pharmacy Filling the Rx: [facility] [id number] [place] [address] Filling Pharmacy Filling Pharmacy Start Date: 02/03/2025 Outgoing fax to insurance: Received question set for PA already in process. Answered question set and faxed back to [employer] via Right fax. I attached chart notes as well. documented in this encounter Plan of Treatment Upcoming Encounters Date Type Department Care Team (Late st Contact Info) Description 03/23/2025 12:45 PM CDT Appointment [facility] [address] [facility] [address] [place] [address] [place] [address] [facility] [address] [place] [address] 03/23/2025 1:30 PM CDT Hospital Encounter [facility] [address] [place] [address] [place] [address] [facility] [place] [address] 03/25/2025 10:20 AM CDT Virtual Visit [facility] [place] [address] [place] [address] [place] [address] [place] [address] 04/04/2025 12:00 PM DOCK PUMPER Office Visit [facility] [place] [address] [facility] [place] [address] Sugey Mccoy, TEN PIN BOWLING CENTRE MANAGER [facility] [address] [place] [address] [address] [place], [place] 470504 05/05/2025 9:00 AM DOCK PUMPER Office Visit [facility] [address] [place] [address] Jadon Floyd MD [address] [place] [address] 029795 05/30/2025 10:[address] [facility] [address] [facility] [address] [place] [address] Carlos Joyner MD [address] [place] [address] 755125 05/31/2025 2:00 PM DOCK PUMPER Virtual Visit [facility] [address] [place] [phone] Carlos Joyner MD [address] [place] [address] 657685 07/25/2025 11:00 AM DOCK PUMPER Office Visit [address] [address] [place] [address] [place] [address] documented as of this encounter Visit Diagnoses Not on filedocumented in this encounter Care Teams Timber Packer Relationship Specialty Start [place] [address] [place] [address] PCP - General 03/05/23 Carlos Joyner MD [address] [place] [address] 254705 Urology 12/09/19 Jadon Murray MD [facility] 2530 [facility] 550 [place], [place] 437[address] Referring Physician Pediatric Surgery 12/09/19 Maru Villagomez, RN Registered Nurse 12/10/19 Ang Slade MD [address] [place] [address] 602135 Urology 04/24/20 Carlos Joyner MD [address] [place] [address] 988635 Assigned Surgical Provider 12/24/20 Ang Slade MD [address] [address] Urology 12/18/22 Lakshmi Wilhelm PA-C [address] [place] [address] Physician Card Folder Urology 02/03/23 [place] [address] [place] [address] Assigned PCP 02/06/23 Alissa Perez PA-C [address] [place] [address] Physician Card Folder Surgery 09/04/23 Lakshmi Wilhelm PA-C [address] [place] [address] Physician Card Folder Urology 09/16/23 Aidee Valero PA-C [address] [place] [address]47 Assigned Musculoskeletal Provider 04/17/24 02/14/25 Carlos Joyner MD [address] [place] [address] Urology 01/26/25 Jadon Floyd MD [address] [place] [address] Physician Physical Medicine and Rehabilitation 01/31/25 Tanisha Marlow 4120 [facility] [address] 03/30/24 documented as of this encounter
--- OUTSIDE RECORDS SUMMARY | 2025-03-12 19:28 | XMS_ITS | Encounter Summary ---
Author Organization [facility] Address [address] [place] [address] Care Team Providers Care Cloth Boil Off Machine Operator Name Role Phone Carlos Joyner MD Unavailable [phone] Jadon Murray MD Unavailable [phone] Maru Villagomez RN Unavailable Unavailable Ang Slade MD Unavailable +[phone] Carlos Joyner MD Unavailable +[phone] Ang Slade MD Unavailable [phone] Lakshmi WilhelmC Unavailable [phone] Heladio Willoughby MD Primary Care Provider [phone] Heladio Willoughby MD Unavailable Alissa Perez-Juan A Unavailable [phone] Lakshmi Wilhelm PA-C Unavailable [phone] Carlos Joyner MD Unavailable +[phone] Jadon Floyd MD Unavailable [phone] Cayden Bejarano MD Unavailable Encounter Details [...] Answer Date Recorded PHQ-2 Score 0 09/13/2024 [facility] Questionnaire [...] Info) Description 03/23/2025 12:45 PM CDT Appointment [facility] [address] [facility] [address] [place] [address] [place]den [place] [address] [place] [address] [address] [place] [address] 03/23/2025 1:30 PM CDT Hospital Encounter [facility] [address] [facility] [address] [place] [phone] [place] [address] [facility] [address] [place] [address] 03/25/2025 10:20 AM CDT Virtual Visit [facility] [place] [address] [facility] [address] [place] [address] [place] [address] [facility] [address] [place] [address] 04/04/2025 12:00 PM J2EE DEVELOPER Office Visit [facility] [address] [address] Sugey Mccoy, DESKTOP SPECIALIST LABOR TRAINING MANAGER [address] [place] [address] 05/05/2025 9:00 AM J2EE DEVELOPER Office Visit [facility] [address] [place] [address] Jadon Floyd MD [address] [place] [address] 937355 05/30/2025 10:20 AM J2EE DEVELOPER Appointment [facility] [address] [place] [phone] Carlos Joyner MD [address] [place] [address] 113475 05/31/2025 2:00 PM J2EE DEVELOPER Virtual Visit [facility] [address] [place] [address] Carlos Joyner MD [address] [place] [address] 60424455 07/25/2025 11:00 AM J2EE DEVELOPER Office Visit [facility] [address] [place] [address] [place] [address] [place], [place] 0057468 documented as of this encounter Visit Diagnoses Not on filedocumented in this encounter Care Teams Cloth Boil Off Machine Operator Relationship Specialty Start [place] [address] [place] [address] PCP - General 03/05/23 Carlos Joyner MD [address] [place] [address] [id number] Urology 12/09/19 Jadon Murray MD [facility] 2530 [facility] 550 [place] [address] Referring Physician Pediatric Surgery 12/09/19 Maru Villagomez, RN Registered Nurse 12/10/19 Ang Slade MD [address] [place] [address] 394 [place], [place] 665315 Urology 04/24/20 Carlos Joyner MD [address] [place] [address] 332465 Assigned Surgical Provider 12/24/20 Ang Slade MD [address] [place] [address] 852545 Urology 12/18/22 Lakshmi Wilhelm PA-C [address] [place] [address] 692575 Physician Options Trader Urology 02/03/23 [place] [address] [place] [address] Assigned PCP 02/06/23 Alissa Perez PA-C [address] [place] [address] 515805 Physician Options Trader Surgery 09/04/23 Lakshmi Wilhelm PA-C [address] [place] [address] 468585 Physician Options Trader Urology 09/16/23 Carlos Joyner MD 9 [place], [place] 452085 Urology 01/26/25 Jadon Floyd MD [address] [place] [address] 694575 Physician Physical Medicine and Rehabilitation 01/31/25 [place] [address] [place] [address] Assigned Musculoskeletal Provider 02/15/25 Tanisha Marlow 4120 [facility] [address] 03/30/24 documented as of this encounter
--- OUTSIDE RECORDS SUMMARY | 2025-03-12 19:28 | XMS_ITS | Encounter Summary ---
Author Organization [place] Address [address] [place] [address] 35807 Care Team Providers Care Electrician'S Helper Name Role Phone Carlos Joyner MD Unavailable +[phone] Jadon Murray MD Unavailable +[phone] Maru Villagomez RN Unavailable Unavailable Ang Slade MD Unavailable +[phone] Carlos Joyner MD Unavailable +[phone] Ang Slade MD Unavailable +[phone] Lakshmi Wilhelm-C Unavailable +[phone] Heladio Willoughby MD Primary Care Provider [phone] Heladio Willoughby MD Unavailable Alissa Perez PA-C Unavailable [phone] SdLakshmi morales-C Unavailable +[phone] Aidee Valero PA-C Unavailable [phone] Carlos Joyner MD Unavailable +[phone] Jadon Floyd MD Unavailable +[phone] Encounter Details Date Type Department Care [...] Answer Date Recorded PHQ-2 Score 0 09/13/2024 [employer] of Occupat ional Health - [...] Description 03/23/2025 12:[address] [facility] [address] [facility] [address] [place] [address] [place] [address] [place] [address] [address] [place] [address] 03/23/2025 1:30 PM CDT Hospital Encounter [facility] [address] [place] [phone] [place] [address] [facility] [address] [address] [place] [address] 03/25/2025 10:20 AM CDT Virtual Visit [facility] [place] [address] [place] [address] [place] [address] [facility] [address] [place] [address] 04/04/2025 12:00 PM TANK REFINISHER Office Visit [facility] [address] [phone] Sugey Mccoy, BANK GUARD MANAGER RAIL [address] [place] [address] 05/05/2025 9:00 AM TANK REFINISHER Office Visit [facility] [address] [place] [address] Jadon Floyd MD [address] [place] [address] 727065 05/30/2025 10:20 AM TANK REFINISHER Appointment [facility] [address] [place] [phone] Carlos Joyner MD [address] [place] [address] 209855 05/31/2025 2:00 PM TANK REFINISHER Virtual Visit [facility] [address] [place] [address] Carlos Joyner MD [address] [place] [address] 094975 07/25/2025 11:00 AM TANK REFINISHER Office Visit [facility] [address] [place] [address] [place] [address] [place], [place] [phone] documented as of this encounter Visit Diagnoses Not on filedocumented in this encounter Care Teams Electrician'S Helper Relationship Specialty Start [place] [address] [place] [address] PCP - General 03/05/23 Carlos Joyner MD [address] [place] [address] 213545 Urology 12/09/19 Jadon Murray MD [facility] [address] [facility] [facility] 550 [place] [address] Referring Physician Pediatric Surgery 12/09/19 Maru Villagomez, RN Registered Nurse 12/10/19 Ang Slade MD [address] [place] [address] 394 [place] [address] Urology 04/24/20 Carlos Joyner MD [address] [place] [address] 746385 Assigned Surgical Provider 12/24/20 Ang Slade MD [address] [place] [address] 394 [place] [address] Urology 12/18/22 Lakshmi Wilhelm PA-C [address] [place] [address] 575645 Physician Gluer Machine Operator Urology 02/03/23 [place] [address] [place] [address] Assigned PCP 02/06/23 Alissa Perez PA-C [address] [place] [address] 739415 Physician Gluer Machine Operator Surgery 09/04/23 Lakshmi Wilhelm PA-C [address] [place] [address] 513295 Physician Gluer Machine Operator Urology 09/16/23 Aidee Valero PA-C [address] [place] [address] 580955 Assigned Musculoskeletal Provider 04/17/24 02/14/25 Carlos Joyner MD [address] [place] [address] 569815 Urology 01/26/25 Jadon Floyd MD [address] [place] [address] 866405 Physician Physical Medicine and Rehabilitation 01/31/25 Tanisha Marlow 4120 [facility] [address] 03/30/24 documented as of this encounter
--- OUTSIDE RECORDS SUMMARY | 2025-03-12 19:28 | XMS_ITS | Encounter Summary ---
Author Organization [place] Address [address] [place] [address] Care Team Providers Care Cryptozoologist Name Role Phone Carlos Joyner MD Unavailable [phone] Jadon Murray MD Unavailable [phone] Maru Villagomez RN Unavailable Unavailable Ang Slade MD Unavailable +[phone] Carlos Joyner MD Unavailable +[phone] Ang Slade MD Unavailable +[phone] Lakshmi WilhelmC Unavailable +[phone] Heladio Willoughby MD Primary Care Provider [phone] Heladio Willoughby MD Unavailable Alissa Perez PA-Juan A Unavailable [phone] Lakshmi Wilhelm PA-C Unavailable +[phone] Carlos Joyner MD Unavailable +[phone] Jadon Floyd MD Unavailable +[phone] Cayden Bejarano MD Unavailable Reason for Visit * Reason Onset Date Comments Appointment 02/16/2025 TE on 02/08/25 in structing Pt to schedule with Elissa Martinez CNP. Referral Coordinator does not have access to this provider. Encounter Details Date Type Department Care Team (Late st Contact Info) Description 02/16/2025 Telephone [facility] Urology [address] [place] [phone] Carlos Joyner MD [address] [place] [address] 188335 Appointment (TE on 02/08/25 instructing Pt to schedule with Elissa Martinez CNP. Referral Coordinator does not have access to this provider. [...] Answer Date Recorded PHQ-2 Score 0 09/13/2024 [facility] [place] of Occupat ional Health - Occupational Stress [...] Pt to schedule with Elissa Martinez CNP. Referral Coordinator does not have access to this provider. Please call to discuss. Thank you. Action Taken: Message routed to: [facility] Uro Travel Screening: Not Applicable Date of Service: documented in this encounter Plan of Treatment Upcoming Encounters Date Type Department Care Team (Late st Contact Info) Description 03/23/2025 12:45 PM CDT Appointment [facility] [address] [facility] [address] [place] [address] Cayden [place]jar[place] [id number] [place] [address] [address] [place] [address] 03/23/2025 1:30 PM CDT Hospital Encounter [facility] [address] [place] [address] [place] [address] [place] [address] 03/25/2025 10:20 AM CDT Virtual Visit [facility] [place] [address] [place] [address] [address] [place] [address] [place] [address] [place] [address] 04/04/2025 12:00 PM COOK ROOM SUPERVISOR Office Visit [facility] [address] [phone] Sugey Mccoy, DISPLAYER MERCHANDISE [address] 653054 05/05/2025 9:00 AM COOK ROOM SUPERVISOR Office Visit [facility] [address] 3rd [place] [address] Jadon Floyd MD [address] [place] [address] [id number] 05/30/2025 10:20 AM COOK ROOM SUPERVISOR Appointment [facility] [address] [place] [address] Carlos Joyner MD [address] [place] [address] 05/31/2025 2:00 PM COOK ROOM SUPERVISOR Virtual Visit [facility] Clinic [address] 4th [place] [address]48[address] Carlos Joyner MD [address] [place] [address] 164185 07/25/2025 11:00 AM COOK ROOM SUPERVISOR Office Visit [facility] [address] [place] [address] [place] [address] [place], [place] 9942068 documented as of this encounter Visit Diagnoses Not on filedocumented in this encounter Care Teams Cryptozoologist Relationship Specialty Start [place] [address] [place] [address] PCP - General 03/05/23 Carlos Joyner MD [address] [place] [address] Urology 12/09/19 Jadon Murray MD [facility] [address] [address] Referring Physician Pediatric Surgery 12/09/19 Maru Villagomez, OTILIO Registered Nurse 12/10/19 Ang Slade MD [address] [place] [address] 156835 Urology 04/24/20 Carlos Joyner MD [address] [place] [address] 590215 Assigned Surgical Provider 12/24/20 Ang Slade MD [address] [place] [address] 44667 Urology 12/18/22 Lakshmi Wilhelm PA-C [address] [place] [address] 19553 Physician Stranner Urology 02/03/23 [place] [address] [place] [address] Assigned PCP 02/06/23 Alissa Perez PA-C [address] [place] [address] 647495 Physician Stranner Surgery 09/04/23 Lakshmi Wilhelm PA-C [address] [place] [address] 56286 Physician Stranner Urology 09/16/23 Carlos Joyner MD [address] [place] [address] 691115 Urology 01/26/25 Jadon Floyd MD [address] [place] [address] 118365 Physician Physical Medicine and Rehabilitation 01/31/25 [place] [address] [place] [address] Assigned Musculoskeletal Provider 02/15/25 Tanisha Marlow [facility]0 [facility] [address] 03/30/24 documented as of this encounter
--- OUTSIDE RECORDS SUMMARY | 2025-03-12 19:28 | XMS_ITS | Encounter Summary ---
Author Organization [place] Address [address] [place] [address]295 Care Team Providers Care Audit Director Name Role Phone Carlos Joyner MD Unavailable +[phone] Jadon Murray MD Unavailable +[phone] Maru Villagomez RN Unavailable Unavailable Ang Slade MD Unavailable +[phone] Carlos Joyner MD Unavailable +[phone] Ang Slade MD Unavailable [phone] Lakshmi Wilhelm-C Unavailable +[phone] Heladio Willoughby MD Primary Care Provider [phone] Heladio Willoughby MD Unavailable Alissa Perez PA-C Unavailable [phone] Lakshmi Wilhelm-C Unavailable +[phone] Aidee Valero PA-C Unavailable +[phone] Carlos Joyner MD Unavailable +[phone] Jadon Floyd MD Unavailable +[phone] Cayden Bejarano MD Unavailable Encounter Details Date Type Department Care Team (Late st Contact Info) Description 02/03/2025 [facility] Urology [place] [address] [facility] 4th [place] [address] Carlos Joyner MD [address] [place] [address] 82687 Social History Tobacco Use Types Packs/Day Years [...] Pratik Oneal - 02/03/2025 10:27 AM CDT [facility] Phone Message May a [...] Appointment [facility] [address] [facility] [address] [place] [address] [place] [address] [place] [address] 03/23/2025 1:30 PM CDT Hospital Encounter [facility] [address] [facility] [address] [place] [address] [place] [address] [place] [address] 03/25/2025 10:20 AM CDT Virtual Visit [facility] Sports Medicine [facility] [address] [facility] [address] [place] [address] [place] [address] [place] [address] 04/04/2025 12:00 PM INFORMATION SYSTEMS PROFESSOR Office Visit [facility] Sleep [address] [phone] Sugey Mccoy, DISH NETWORK INSTALLER [address] 423844 05/05/2025 9:00 AM INFORMATION SYSTEMS PROFESSOR Office Visit [facility] Physical Medicine [facility] Rehabilitation Clinic [address] [address] Jadon Floyd MD [address] [place] [address] 568625 05/30/2025 10:20 AM INFORMATION SYSTEMS PROFESSOR Appointment [facility] [address] [facility] [address] [place] [address] Carlos Joyner MD [address] [place] [address] 802685 05/31/2025 2:00 PM INFORMATION SYSTEMS PROFESSOR Virtual Visit [facility] Urology Clinic [address] [phone] Carlos Joyner MD 909 [place], [place] 121825 07/25/2025 11:00 AM INFORMATION SYSTEMS PROFESSOR Office Visit [facility] [address] [place] [address] [place] [address] [place], [place] 4111068 documented as of this encounter Visit Diagnoses Not on filedocumented in this encounter Care Teams Audit Director Relationship Specialty [place] [address] [address] [place], [place] [phone] PCP - General 03/05/23 Carlos Joyner MD [address] [place] [address]65 Urology 12/09/19 Jadon Murray MD [facility] [address] [address] Referring Physician Pediatric Surgery 12/09/19 Maru Villagomez, OTILIO Registered Nurse 12/10/19 Ang Slade MD [address] [place] [address] 33061 Urology 04/24/20 Carlos Joyner MD [address] [place] [address] 18475 Assigned Surgical Provider 12/24/20 Ang Slade MD [address] [address] Urology 12/18/22 Lakshmi Wilhelm PA-C [address] [place] [address] 35645 Physician Dot Etcher Urology 02/03/23 [place] [address] [place] [address] Assigned PCP 02/06/23 Alissa Perez PA-C [address] [place] [address] 54769 Physician Dot Etcher Surgery 09/04/23 Lakshmi Wilhelm PA-C [address] [place] [address] 12124 Physician Dot Etcher Urology 09/16/23 Aidee Valero PA-C [address] [place] [address] 41401 Assigned Musculoskeletal Provider 04/17/24 02/14/25 Carlos Joyner MD [address] [place] [address] 16416 Urology 01/26/25 Jadon Floyd MD [address] [place] [address] 828935 Physician Physical Medicine and Rehabilitation 01/31/25 [place] [address] [place] [address] Assigned Musculoskeletal Provider 02/15/25 Tanisha Marlow [facility]120 [facility] [address] 03/30/24 documented as of this encounter
--- OUTSIDE RECORDS SUMMARY | 2025-03-12 19:28 | XMS_ITS | Encounter Summary ---
Author Organization [place] Address [address] [place] [address] 13265 Care Team Providers Care Saute Chef Name Role Phone Carlos Joyner MD Unavailable [phone] Jadon Murray MD Unavailable +[phone] Maru Villagomez RN Unavailable Unavailable Ang Slade MD Unavailable +[phone] Carlos Joyner MD Unavailable +[phone] Ang Slade MD Unavailable [phone] Lakshmi Wilhelm-C Unavailable +[phone] Heladio Willoughby MD Primary Care Provider [phone] Heladio Willoughby MD Unavailable Alissa Perez PA-C Unavailable [phone] Lakshmi Wilhelm-Juan A Unavailable +[phone] Aidee Valero PA-C Unavailable +[phone] Carlos Joyner MD Unavailable + [phone] Jadon Floyd MD Unavailable +[phone] Cayden Bejarano MD Unavailable Encounter Details Date Type Department Care Team (Late st Contact Info) Description 09/27/[address] [address] Lisette Mariee Social History Tobacco [...] Info) Description 03/23/2025 12:45 PM CDT Appointment [facility] [address] [facility] [address] [place] [address] [place] [address] [place] [address] 03/23/2025 1:30 PM CDT Hospital Encounter [facility] [address] [facility] [address] [place] [address] [place] [address] [address] [place] [address] 03/25/2025 10:20 AM CDT Virtual Visit [facility] [place] [address] [place] [address] [address] [place] [address] [place] [address] [place] [address] 04/04/2025 12:00 PM TRAVELING INVENTORY ASSOCIATE Office Visit [facility] [address] [phone] Sugey Mccoy APRN [address] 037094 05/05/2025 9:00 AM TRAVELING INVENTORY ASSOCIATE Office Visit [facility] Physical Medicine [facility] Rehabilitation Clinic [address]rd [place] [address] Jadon Floyd MD [address] [place] [address] 889815 05/30/2025 10:20 AM TRAVELING INVENTORY ASSOCIATE Appointment [facility] [address] [place] [address] Carlos Joyner MD [address] [place] [address] 286075 05/31/2025 2:00 PM TRAVELING INVENTORY ASSOCIATE Virtual Visit [facility] U[facility] Clinic [address] [place] [address] Carlos Joyner MD [address] [place] [address] 577235 07/25/2025 11:00 AM TRAVELING INVENTORY ASSOCIATE Office Visit [facility] [address] [place] [address] [place] [address] [place], [place] 4793268 documented as of this encounter Visit Diagnoses Not on filedocumented in this encounter Care Teams Saute Chef Relationship Specialty Start [place] [address] [place], [place] [phone] PCP - General 03/05/23 Carlos Joyner MD [address] [place] [address]15 Urology 12/09/19 Jadon Murray MD [facility] 2530 [facility] 550 [place] [address] Referring Physician Pediatric Surgery 12/09/19 Maru Villagomez, RN Registered Nurse 12/10/19 Ang Slade MD 420 [facility] 394 [place], [place] 660715 MD Urology 04/24/20 Carlos Joyner MD [address] [place] [address] [phone] Assigned Surgical Provider 12/24/20 Ang Slade MD 420 [facility] 394 [place], [place] 098445 MD Urology 12/18/22 Lakshmi Wilhelm PA-C [address] [place] [address] 455485 Physician Entry Level Truck Driver Urology 02/03/23 [place] [address] [place] [address] Assigned PCP 02/06/23 Alissa Perez PA-C [address] [place] [address] 353335 Physician Entry Level Truck Driver Surgery 09/04/23 Lakshmi Wilhelm PA-C [address] [place] [address] 727555 Physician Entry Level Truck Driver Urology 09/16/23 Aidee Valero PA-C [address] [place] [address] 39323 Assigned Musculoskeletal Provider 04/17/24 02/14/25 Carlos Joyner MD [address] [place] [address] 16013 Urology 01/26/25 Jadon Floyd MD 9 [place] [address] Physician Physical Medicine and Rehabilitation 01/31/25 [place] [address] [place] [address] Assigned Musculoskeletal Provider 02/15/25 Tanisha Marlow 4120 [facility] [address] 03/30/24 documented as of this encounter
--- OUTSIDE RECORDS SUMMARY | 2025-03-12 19:28 | XMS_ITS | Encounter Summary ---
Author Organization [place] Address [address] [place] [address] 665[address] Care Team Providers Care Tech Intern Name Role Phone Carlos Joyner MD Unavailable +[phone] Jadon Murray MD Unavailable [phone] Maru Villagomez RN Unavailable Unavailable Ang Slade MD Unavailable +[phone] Carlos Joyner MD Unavailable +[phone] Ang Slade MD Unavailable +[phone] Lakshmi Wilhelm-C Unavailable +[phone] Heladio Willoughby MD Primary Care Provider [phone] Heladio Willoughby MD Unavailable Alissa Perez PA-C Unavailable [phone] Lakshmi Wilhelm-C Unavailable [phone] Aidee Valero PA-C Unavailable +[phone] Carlos Joyner MD Unavailable +[phone] Jadon Floyd MD Unavailable +[phone] Cayden Bejarano MD Unavailable Encounter Details Date Type Department Care Team (Late st Contact Info) Description 11/03/2024 [facility] Urology [place] 860709 [facility] 4th [place] [address] Carlos Joyner MD [address] [place] [address] Social History Tobacco Use Types Packs/Day Years [...] Answer Date Recorded PHQ-2 Score 0 09/13/2024 [facility] of Occupat ional Health - Occupational [...] Info) Description 03/23/2025 12:45 PM CDT Appointment [facility] [address] [facility] [address] [place] [address] [place] [address] [place] [address] 03/23/2025 1:30 PM CDT Hospital Encounter [facility] [address] [facility] [address] [place] [address] [place] [address] [facility] [address] [place] [address] 03/25/2025 10:20 AM CDT Virtual Visit [facility] [place] [address] [facility] [address] [place] [address] [place] [address] [facility] [address] [place] [address] 04/04/2025 12:00 PM AUTISM SPECIALIST Office Visit [facility] [address] [address] Sugey Mccoy, PUBLIC SPEAKING TEACHER KILN FEEDER [address] [place] [address] 05/05/2025 9:00 AM AUTISM SPECIALIST Office Visit [facility] [address] [place] [address] Jadon Floyd MD [address] [place] [address] 05/30/2025 10:20 AM AUTISM SPECIALIST Appointment [facility] [address] [place] [address]2515 Carlos Joyner MD [address] [place] [address] 694905 05/31/2025 2:00 PM AUTISM SPECIALIST Virtual Visit [facility] [address] [place] [address] Carlos Joyner MD [address] [place] [address] 720155 07/25/2025 11:00 AM AUTISM SPECIALIST Office Visit [facility] [address] [place] [address]-2726[address] [place] [address] [place] [address] documented as of this encounter Visit Diagnoses Not on filedocumented in this encounter Care Teams Tech Intern Relationship Specialty Start Date End Date Heladio [place]by [place] [address] [place] [address] PCP - General 03/05/23 Carlos Joyner MD [address] [place] [address] [phone] Urology 12/09/19 Jadon Murray MD [facility] 2530 [facility] 550 [place] [address] Referring Physician Pediatric Surgery 12/09/19 Maru Villagomez, RN Registered Nurse 12/10/19 Ang Slade MD 420 [facility] 394 [place] [address] Urology 04/24/20 Carlos Joyner MD [address] [place] [address] 262615 Assigned Surgical Provider 12/24/20 Ang Slade MD [address] [place] [address] 394 [place] [address] Urology 12/18/22 Lakshmi Wilhelm PA-C [address] [place] [address] 919845 Physician Stoner Out Urology 02/03/23 [place] [address] [place] [address] Assigned PCP 02/06/23 Alissa Perez PA-C [address] [place] [address] 301765 Physician Stoner Out Surgery 09/04/23 Lakshmi Wilhelm PA-C [address] [place] [address] 893385 Physician Stoner Out Urology 09/16/23 Aidee Valero PA-C [address] [place] [address] 6[address] Assigned Musculoskeletal Provider 04/17/24 02/14/25 Carlos Joyner MD [address] [place] [address]269 Urology 01/26/25 Jadon Floyd MD [address] [place] [address] 819765 Physician Physical Medicine and Rehabilitation 01/31/25 [place] [address] [place] [address] Assigned Musculoskeletal Provider 02/15/25 Tanisha Marlow [address] [place] [address] 03/30/24 documented as of this encounter
--- OUTSIDE RECORDS SUMMARY | 2025-03-12 19:28 | XMS_ITS | Encounter Summary ---
Author Organization [place] Address [address] [place] [address] Care Team Providers Care Plant Floor Automation Manager Name Role Phone Carlos Joyner MD Unavailable + [phone] Jadon Murray MD Unavailable +[phone] Maru Villagomez RN Unavailable Unavailable Ang Slade MD Unavailable +[phone] Carlos Joyner MD Unavailable + [phone] Ang Slade MD Unavailable +[phone] Lakshmi WilhelmC Unavailable +[phone] Heladio Willoughby MD Primary Care Provider [phone] Heladio Willoughby MD Unavailable Alissa Perez-Juan A Unavailable [phone] Lakshmi Wilhelm PA-C Unavailable +[phone] Carlos Joyner MD Unavailable +[phone] Jadon Floyd MD Unavailable +[phone] Cayden Bejarano MD Unavailable Encounter Details [...] Answer Date Recorded PHQ-2 Score 0 [facility] [...] Info) Description 03/23/2025 12:45 PM CDT Appointment [facility] [address] [facility] [address] [place] [address] [place] [id number] [place] [address] [address] [place] [address] 03/23/2025 1:30 PM CDT Hospital Encounter [facility] [address] [facility] [address] [place] [address] [place] [address] [facility] [address] [place] [address] 03/25/2025 10:20 AM CDT Virtual Visit [facility] [place] [address] [facility] [address] [place] [address] [place] [address] [facility] [address] [place] [address] 04/04/2025 12:00 PM SPOOL WORKER Office Visit [facility] Sleep Center [address] [address] Sugey Mccoy, FAMILY COACH SALES OFFICE ADMINISTRATOR [address] [place] [address] 05/05/2025 9:00 AM SPOOL WORKER Office Visit [facility] [address] [place] [address] Jadon Floyd MD [address] [place] [address] 565465 05/30/2025 10:20 AM SPOOL WORKER Appointment [facility] [address] [place] [address] Carlos Joyner MD [address] [place] [address] 516665 05/31/2025 2:00 PM SPOOL WORKER Virtual Visit [facility] Urology Clinic [address] [place] [address] Carlos Joyner MD [address] [place] [address] [id number] 07/25/2025 11:00 AM SPOOL WORKER Office Visit [facility] [address] [place] [phone] [place] [address] [place], [place] [phone] documented as of this encounter Visit Diagnoses Not on filedocumented in this encounter Care Teams Plant Floor Automation Manager Relationship Specialty Start [place] [address] [place] [address] PCP - General 03/05/23 Carlos Joyner MD [address] [place] [address] [phone] Urology 12/09/19 Jadon Murray MD [facility] 2530 [facility] 550 [place] [address] Referring Physician Pediatric Surgery 12/09/19 Maru Villagomez, RN Registered Nurse 12/10/19 Ang Slade MD [address] [place] [address] 394 [place], [place] 327855 Urology 04/24/20 Carlos Joyner MD [address] [place] [address] 961865 Assigned Surgical Provider 12/24/20 Ang Slade MD [address] [place] [address] 410915 Urology 12/18/22 Lakshmi Wilhelm PA-C [address] [place] [address] 254915 Physician Branch Or Department Chief Librarian Urology 02/03/23 [place] [address] [place] [address] Assigned PCP 02/06/23 Ailssa Perez PA-C [address] [place] [address] 645485 Physician Branch Or Department Chief Librarian Surgery 09/04/23 Lakshmi Wilhelm PA-C [address] [place] [address] 485195 Physician Branch Or Department Chief Librarian Urology 09/16/23 Carlos Joyner MD 9 [place], [place] 031555 Urology 01/26/25 Jadon Floyd MD [address] [place] [address] 630865 Physician Physical Medicine and Rehabilitation 01/31/25 [place] [address] [place] [address] Assigned Musculoskeletal Provider 02/15/25 Tanisha Marlow 4120 [facility] [address] 03/30/24 documented as of this encounter
--- OUTSIDE RECORDS SUMMARY | 2025-03-12 19:28 | XMS_ITS | Encounter Summary ---
Author Organization [place] Address [address] [place] [address] Care Team Providers Care Cylinder Press Operator Helper Name Role Phone Carlos Joyner MD Unavailable +[phone] Jadon Murray MD Unavailable +[phone] Maru Villagomez RN Unavailable Unavailable Ang Slade MD Unavailable +[phone] Carlos Joyner MD Unavailable +[phone] Ang Slade MD Unavailable +[phone] Lakshmi Wilhelm-C Unavailable +[phone] Heladio Willoughby MD Primary Care Provider [phone] Heladio Willoughby MD Unavailable Alissa Perez PA-C Unavailable [phone] FlLakshmi morales-C Unavailable +[phone] Aidee Valero PA-C Unavailable +[phone] Carlos Joyner MD Unavailable +[phone] Jadon Floyd MD Unavailable +[phone] Encounter Details Date Type Department Care [...] Info) Description 03/23/2025 12:45 PM CDT Appointment [facility] [address] [facility] [address] [place] [address] [place]den [place]jarano [place] [address] [place] [address] [address] [place] [address] 03/23/2025 1:30 PM CDT Hospital Encounter [facility] [address] [facility] [address] [place] [address] [place] [address] [facility] [address] [place] [address] 03/25/2025 10:20 AM CDT Virtual Visit [facility] [place] [address] [facility] [address] [place] [address] [place] [address] [facility] [address] [place] [address] 04/04/2025 12:00 PM WELDING MACHINE ASSEMBLER Office Visit [facility] [address] [phone] Sugey Mccoy, MEDICINAL PLANT PICKER YOUTH COURT JUDGE [address] [place] [address] 05/05/2025 9:00 AM WELDING MACHINE ASSEMBLER Office Visit [facility] [address] [place] [address] Jadon Floyd MD [address] [place] [address] 746955 05/30/2025 10:20 AM WELDING MACHINE ASSEMBLER Appointment [facility] [address] [place] [address] Carlos Joyner MD [address] [place] [address] 331195 05/31/2025 2:00 PM WELDING MACHINE ASSEMBLER Virtual Visit [facility] [address] [place] [address] Carlos Joyner MD [address] [place] [address] 285605 07/25/2025 11:00 AM WELDING MACHINE ASSEMBLER Office Visit [facility] [address] [place] [address] [place] [address] [place], [place] [phone] documented as of this encounter Visit Diagnoses Not on filedocumented in this encounter Care Teams Cylinder Press Operator Helper Relationship Specialty Start [place] [address] [place] [address] PCP - General 03/05/23 Carlos Joyner MD [address] [place] [address] 147615 Urology 12/09/19 Jadon Murray MD [facility] 2530 [facility] 550 [place] [address] Referring Physician Pediatric Surgery 12/09/19 Maru Villagomez, RN Registered Nurse 12/10/19 Ang Slade MD [address] [place] [address] 394 [place] [address] Urology 04/24/20 Carlos Joyner MD [address] [place] [address] 762435 Assigned Surgical Provider 12/24/20 Ang Slade MD [address] [place] [address] 394 [place] [address] Urology 12/18/22 Lakshmi Wilhelm PA-C [address] [place] [address] 106335 Physician Presto Log Operator Urology 02/03/23 [place] [address] [place] [address] Assigned PCP 02/06/23 Alissa Perez PA-C [address] [place] [address] 131715 Physician Presto Log Operator Surgery 09/04/23 Lakshmi Wilhelm PA-C [address] [place] [address] 649165 Physician Presto Log Operator Urology 09/16/23 Aidee Valero PA-C [address] [place] [address] 668945 Assigned Musculoskeletal Provider 04/17/24 02/14/25 Carlos Joyner MD [address] [place] [address] 543215 Urology 01/26/25 Jadon Floyd MD [address] [place] [address] 465485 Physician Physical Medicine and Rehabilitation 01/31/25 Tanisha Marlow 4120 [facility] [address] 03/30/24 documented as of this encounter
--- OUTSIDE RECORDS SUMMARY | 2025-03-12 19:28 | XMS_ITS | Encounter Summary ---
Author Organization [facility] Address [address] [place] [address] Care Team Providers Care Production Weigher Name Role Phone Carlos Joyner MD Unavailable + [phone] Jadon Murray MD Unavailable +[phone] Maru Villagomez RN Unavailable Unavailable Ang Slade MD Unavailable +[phone] Carlos Joyner MD Unavailable +[phone] Ang Slade MD Unavailable [phone] Lakshmi Wilhelm-C Unavailable +[phone] Heladio Willoughby MD Primary Care Provider [phone] Heladio Willoughby MD Unavailable Alissa Perez PA-C Unavailable [phone] Lakshmi Wilhelm-C Unavailable +[phone] Aidee Valero PA-C Unavailable +[phone] Carlos Joyner MD Unavailable +[phone] Jadon Floyd MD Unavailable +[phone] Cayden Bejarano MD Unavailable Encounter Details Date Type Department Care Team (Late st Contact Info) Description 10/01/2024 [facility] [place] [id number] [facility] 4th [place] [address] Hattie Wing RN Social History [...] Info) Description 03/23/2025 12:45 PM CDT Appointment [facility] [address] [facility] [address] [place] [address] [place] [address] [place] [address] 03/23/2025 1:30 PM CDT Hospital Encounter [facility] [address] [facility] [address] [place] [address] [place] [address] [address] [place] [address] 03/25/2025 10:20 AM CDT Virtual Visit [facility] [place] [address] [place] [address] [address] [place] [address] [place] [address] [place] [address] 04/04/2025 12:00 PM PORTRAIT PAINTER Office Visit [facility] [address] [phone] Sugey Mccoy APRN [address] 327174 05/05/2025 9:00 AM PORTRAIT PAINTER Office Visit [facility] [address] [place] [address] Jadon Floyd MD [address] [place] [address] 913495 05/30/2025 10:20 AM PORTRAIT PAINTER Appointment [facility] [address] [place] [address] Carlos Joyner MD [address] [place] [address] 586485 05/31/2025 2:00 PM PORTRAIT PAINTER Virtual Visit [facility] [address] [place] [address] Carlos Joyner MD [address] [place] [address] 345405 07/25/2025 11:00 AM PORTRAIT PAINTER Office Visit [facility] [address] [place] [address] [place] [address] [place], [place] 4886168 documented as of this encounter Visit Diagnoses Not on filedocumented in this encounter Care Teams Production Weigher Relationship Specialty [place] [address] [place], [place] 2175168 PCP - General 03/05/23 Carlos Joyner MD [address] [place] [address] Urology 12/09/19 Jadon Murray MD [facility] 2530 [facility] 550 [place] [address] Referring Physician Pediatric Surgery 12/09/19 Maru Villagomez, RN Registered Nurse 12/10/19 Ang Slade MD 420 [facility] 394 [place], [place] 725765 MD Urology 04/24/20 Carlos Joyner MD [address] [place] [address] [phone] Assigned Surgical Provider 12/24/20 Ang Slade MD 420 [facility] 394 [place], [place] 726485 MD Urology 12/18/22 Lakshmi Wilhelm PA-C [address] [place] [address] 266355 Physician Office Asst Urology 02/03/23 [place] [address] [place] [address] Assigned PCP 02/06/23 Alissa Perez PA-C [address] [place] [address] 147545 Physician Office Asst Surgery 09/04/23 Lakshmi Wilhelm PA-C [address] [place] [address] 777735 Physician Office Asst Urology 09/16/23 Aidee Valero PA-C [address] [place] [address] Assigned Musculoskeletal Provider 04/17/24 02/14/25 Carlos Joyner MD [address] [place] [address] Urology 01/26/25 Jadon Floyd MD 9 [place] [address] Physician Physical Medicine and Rehabilitation 01/31/25 [place] [address] [place] [address] Assigned Musculoskeletal Provider 02/15/25 Tanisha Marlow 4120 [facility] [address] 03/30/24 documented as of this encounter
--- OUTSIDE RECORDS SUMMARY | 2025-03-12 19:28 | XMS_ITS | Encounter Summary ---
Author Organization [place] Address [address] [place] [address] Care Team Providers Care Medical Insurance Biller Name Role Phone Carlos Joyner MD Unavailable +[phone] Jadon Murray MD Unavailable +[phone] Maru Villagomez RN Unavailable Unavailable Ang Slade MD Unavailable +[phone] Carlos Joyner MD Unavailable +[phone] Ang Slade MD Unavailable +[phone] Lakshmi Wilhelm-C Unavailable +[phone] Heladio Willoughby MD Primary Care Provider [phone] Heladio Willoughby MD Unavailable Alissa Perez PA-C Unavailable [phone] ScLakshmi morales-C Unavailable +[phone] Aidee Valero PA-C Unavailable [phone] Carlos Joyner MD Unavailable +[phone] Jadon Floyd MD Unavailable [phone] Encounter Details Date Type Department Care [...] 12:45 PM CDT Appointment [facility] [address] [place] [facility] [address] [place] [address] [place] [address] [place] [address] [address] [place] [address] 03/23/2025 1:30 PM CDT Hospital Encounter [facility] [address] [facility] [address] [place] [address] [place] [address] [facility] [address] [place] [address] 03/25/2025 10:20 AM CDT Virtual Visit [facility] [place] [address] [place] [facility] [address] [place] [address] [place] [address] [facility] [address] [place] [address] 04/04/2025 12:00 PM PROPERTY ECONOMIST Office Visit [facility] [address] [phone] Sugey Mccoy, LEGAL SUPPORT MANAGER INDUSTRIAL REHABILITATION CONSULTANT [address] [place] [address] 05/05/2025 9:00 AM PROPERTY ECONOMIST Office Visit [facility] Rehabilitation [facility] [address] [place] [address] Jadon Floyd MD [address] [place] [address] 689775 05/30/2025 10:20 AM PROPERTY ECONOMIST Appointment [facility] [address] [place] [address] [place] [address] Carlos Joyner MD [address] [place] [address] 193445 05/31/2025 2:00 PM PROPERTY ECONOMIST Virtual Visit [facility] [address] [place] [address] Carlos Joyner MD [address] [place] [address] 090565 07/25/2025 11:00 AM PROPERTY ECONOMIST Office Visit [facility] [address] [place] [address] [place] [address] [place], [place] [phone] documented as of this encounter Visit Diagnoses Not on filedocumented in this encounter Care Teams Medical Insurance Biller Relationship Specialty [place] [address] [place] [address] PCP - General 03/05/23 Carlos Joyner MD [address] [place] [address] 331635 Urology 12/09/19 Jadon Murray MD [facility] 2530 [facility] 550 [place] [address] Referring Physician Pediatric Surgery 12/09/19 Maru Villagomez, RN Registered Nurse 12/10/19 Ang Slade MD [address] [place] [address] 394 [place] [address] Urology 04/24/20 Carlos Joyner MD [address] [place] [address] 337925 Assigned Surgical Provider 12/24/20 Ang Slade MD [address] [place] [address] 394 [place] [address] Urology 12/18/22 Lakshmi Wilhelm PA-C [address] [place] [address] 919495 Physician Dumpster Operator Urology 02/03/23 [place] [address] [place] [address] Assigned PCP 02/06/23 Alissa Perez PA-C [address] [place] [address] 535975 Physician Dumpster Operator Surgery 09/04/23 Lakshmi Wilhelm PA-C [address] [place] [address] 021175 Physician Dumpster Operator Urology 09/16/23 Aidee Valero PA-C [address] [place] [address] 987125 Assigned Musculoskeletal Provider 04/17/24 02/14/25 Carlos Joyner MD [address] [place] [address] 260465 Urology 01/26/25 Jadon Floyd MD [address] [place] [address] 817965 Physician Physical Medicine and Rehabilitation 01/31/25 Tanisha Marlow 4120 [facility] [address] 03/30/24 documented as of this encounter
--- OUTSIDE RECORDS SUMMARY | 2025-03-12 19:28 | XMS_ITS | Encounter Summary ---
Author Organization [place] Address [address] [place] [address] Care Team Providers Care Rural Route Mail Carrier Name Role Phone Carlos Joyner MD Unavailable +[phone] Jadon Murray MD Unavailable +[phone] Maru Villagomez RN Unavailable Unavailable Ang Slade MD Unavailable +[phone] Carlos Joyner MD Unavailable +[phone] Ang Slade MD Unavailable +[phone] Lakshmi WilhelmC Unavailable +[phone] Heladio Willoughby MD Primary Care Provider [phone] Heladio Willoughby MD Unavailable Alissa Perez-Juan A Unavailable [phone] Lakshmi Wilhelm PA-C Unavailable +[phone] Carlos Joyner MD Unavailable +[phone] Jadon Floyd MD Unavailable +[phone] Cayden [...] Answer Date Recorded PHQ-2 Score 0 09/13/2024 [facility] Questionnaire [...] Info) Description 03/23/2025 12:45 PM CDT Appointment [facility] [address] [facility] [address] [place] [address] Cayden [place]jarano [place] [address] [place] [address] [address] [place] [address] 03/23/2025 1:30 PM CDT Hospital Encounter [facility] [address] [facility] [address] [place] [address] [place] [address] [facility] [place] [address] 03/25/2025 10:20 AM CDT Virtual Visit [facility] [place] [address] [facility] [address] [place] [address] [place] [address] [facility] [address] [place] [address] 04/04/2025 12:00 PM FISHING VESSEL DECKHAND Office Visit [facility] [address] [address] Sugey Mccoy, TELECOM NETWORK MANAGER POWERHOUSE HELPER [address] [place] [address] 05/05/2025 9:00 AM FISHING VESSEL DECKHAND Office Visit [facility] [address] [place] [address] Jadon Floyd MD [address] [place] [address] 937495 05/30/2025 10:20 AM FISHING VESSEL DECKHAND Appointment [facility] [address] [place] [address] Carlos Joyner MD [address] [place] [address] 431035 05/31/2025 2:00 PM FISHING VESSEL DECKHAND Virtual Visit [facility] [address] [place] [address] Carlos Joyner MD [address] [place] [address] 56137455 07/25/2025 11:00 AM FISHING VESSEL DECKHAND Office Visit [facility] [address] [place] [address]23[address] [place] [address] [place], [place] 2624068 documented as of this encounter Visit Diagnoses Not on filedocumented in this encounter Care Teams Rural Route Mail Carrier Relationship Specialty [place] [address] [place] [address] PCP - General 03/05/23 Carlos Joyner MD [address] [place] [address] [phone] Urology 12/09/19 Jadon Murray MD [facility] 2530 [facility] 550 [place] [address] Referring Physician Pediatric Surgery 12/09/19 Maru Villagomez, RN Registered Nurse 12/10/19 Ang Slade MD [address] [place] [address] 394 [place], [place] 091615 Urology 04/24/20 Carlos Joyner MD [address] [place] [address] 037355 Assigned Surgical Provider 12/24/20 Ang Slade MD [address] [place] [address] 449935 Urology 12/18/22 Lakshmi Wilhelm PA-C [address] [place] [address] 662585 Physician Financial Foundations Representative Urology 02/03/23 [place] [address] [place] [address] Assigned PCP 02/06/23 Alissa Perez PA-C [address] [place] [address] 242995 Physician Financial Foundations Representative Surgery 09/04/23 Lakshmi Wilhelm PA-C [address] [place] [address] 600465 Physician Financial Foundations Representative Urology 09/16/23 Carlos Joyner MD 9 [place], [place] 975465 Urology 01/26/25 Jadon Floyd MD [address] [place] [address] 120405 Physician Physical Medicine and Rehabilitation 01/31/25 [place] [address] [place] [address] Assigned Musculoskeletal Provider 02/15/25 Tanisha Marlow 4120 [facility] [address] 03/30/24 documented as of this encounter
--- OUTSIDE RECORDS SUMMARY | 2025-03-12 19:28 | XMS_ITS | Encounter Summary ---
Author Organization [facility] Address [address] [place] [address] Care Team Providers Care Auto Body Builder Apprentice Name Role Phone Carlos Joyner MD Unavailable [phone] Jadon Murray MD Unavailable +[phone] Maru Villagomez RN Unavailable Unavailable Ang Slade MD Unavailable +[phone] Carlos Joyner MD Unavailable +[phone] Ang Slade MD Unavailable [phone] Lakshmi Wilhelm-C Unavailable +[phone] Heladio Willoughby MD Primary Care Provider [phone] Heladio Willoughby MD Unavailable Alissa Perez PA-C Unavailable [phone] NyLakshmi morales-C Unavailable +[phone] Aidee Valero PA-C Unavailable [phone] Carlos Joyner MD Unavailable +[phone] Jadon Floyd MD Unavailable [phone] Reason for Visit * Reason Onset Date Comments Forms 02/03/2025 OT Outpatient/Th oratic Spina bifida- [facility] Encounter Details Date Type Department Care Team (Late st Contact Info) Description 02/03/2025 [facility] [address] [place] [address] [place] [address] [address] [place] [phone] Forms (OT Outpatient/Thoratic Spina bifida- [facility]/) Social History Tobacco Use Types [...] - 02/03/2025 9:28 AM CDT Faxed to [facility] and abstracting. Placed in tc basket at [facility]. Sarika Prescott Pluck Separator- [place] [address] Primary Care- [place] [facility] * Telephone Encounter - Heladio Willoughby MD - 02/03/2025 8:26 AM CDT Signed. Placed in outgoing box. MD [facility] * Telephone Encounter - Sarika Dunaway - 02/03/2025 7:47 AM CDT OT orders in provider basket for signature. Sarika Prescott, Pluck Separator- [facility] 2 Primary Care- [place] [facility] * Telephone Encounter - Zoe Johnson - 02/03/2025 7:00 AM CDT Forms/Letter Request Type of form/letter: OTHER: [facility] Thoratic Spina bifida OT Outpatient Do we have the form/letter: Yes: Who is the form from? Where did/will the form come from? form was faxed in When is form/letter needed by: How would you like the form/letter returned: Zoe Johnson Patient Osteopathic Neurologist documented in this encounter Plan of Treatment Upcoming Encounters Date Type Department Care Team (Late st Contact Info) Description 03/23/2025 12:45 PM CDT Appointment [facility] [address] [facility] [address] [place] [address] [place] [address] [place] [address] 03/23/2025 1:30 PM CDT Hospital Encounter [facility] [address] [place] [address] [place] [address] [place] [address] 03/25/2025 10:20 AM CDT Virtual Visit [facility] Medicine [facility] [place] [address] [place] [address] Drive [address] [place] [address] [place] [address] [place] [address] 04/04/2025 12:00 PM GLOBAL MOBILITY SPECIALIST Office [facility] [place] [address] [place] [address] Sugey Mccoy, JOINERS SUPERVISOR [facility] [address] [place] [address] [address] [place], [place] 9[address]754 05/05/2025 9:00 AM GLOBAL MOBILITY SPECIALIST Office [facility] Physical Medicine and Rehabilitation Clinic [address] [place] [phone] Jadon Floyd MD [address] [place] [address] 865425 05/30/2025 10:20 AM GLOBAL MOBILITY SPECIALIST Appointment [facility] [address] [facility] [address] [place] [address] Carlos Joyner MD [address] [place] [address] 002685 05/31/2025 2:00 PM GLOBAL MOBILITY SPECIALIST Virtual Visit [facility] Urology Clinic [address] [place] [phone] Carlos Joyner MD [address] [place] [address] [phone] 07/25/2025 11:00 AM GLOBAL MOBILITY SPECIALIST Office [facility] [address] [place] [address] [place] [address] [place] [address] documented as of this encounter Visit Diagnoses Not on filedocumented in this encounter Care Teams Auto Body Builder Apprentice Relationship Specialty Start [place] [address] [place] [address] PCP - General 03/05/23 Carlos Joyner MD [address] [place] [address] Urology 12/09/19 Jadon Murray MD [facility] 25[address] [facility] [address] [id number] Referring Physician Pediatric Surgery 12/09/19 Maru Villagomez, RN Registered Nurse 12/10/19 Ang Slade MD [address] [place] [address] 006945 Urology 04/24/20 Carlos Joyner MD [address] [place] [address] 896285 Assigned Surgical Provider 12/24/20 Ang Slade MD [address] [place] [address] 989015 Urology 12/18/22 Lakshmi Wilhelm PA-C [address] [place] [address] 140025 Physician Television Cabinet Finisher Urology 02/03/23 [place] [address] [place] [address] Assigned PCP 02/06/23 Alissa Perez PA-C [address] [place] [address] 7[address]21 Physician Television Cabinet Finisher Surgery 09/04/23 Laksmhi Wilhelm PA-C [address] [place] [address] 69310 Physician Television Cabinet Finisher Urology 09/16/23 Aidee Valero PA-C [address] [place] [address] 00768 Assigned Musculoskeletal Provider 04/17/24 02/14/25 Carlos Joyner MD [address] [place] [address] 24347 Urology 01/26/25 Jadon Floyd MD [address] [place] [address] 62179 Physician Physical Medicine and Rehabilitation 01/31/25 Tanisha Marlow 4120 [facility] [address] 03/30/24 documented as of this encounter
--- OUTSIDE RECORDS SUMMARY | 2025-03-12 19:28 | XMS_ITS | Encounter Summary ---
Author Organization [place] Address [address] [place] [address] 64408 Care Team Providers Care Torch Cutter Name Role Phone Carlos Joyner MD Unavailable [phone] Jadon Murray MD Unavailable [phone] Maru Villagomez RN Unavailable Unavailable Ang Slade MD Unavailable +[phone] Carlos Joyner MD Unavailable +[phone] Ang Slade MD Unavailable [phone] Lakshmi Wilhelm-C Unavailable +[phone] Heladio Willoughby MD Primary Care Provider [phone] Heladio Willoughby MD Unavailable Alissa Perez PA-C Unavailable [phone] Lakshmi Wilhelm-C Unavailable +[phone] Aidee Valero PA-C Unavailable +[phone] Carlos Joyner MD Unavailable +[phone] Jadon Floyd MD Unavailable [phone] Cayden Bejarano MD Unavailable Encounter Details Date Type Department Care Team (Late st Contact Info) Description 02/08/2025 [facility] Sports Medicine [address] [place], [place] 433[address] [place] [address] [place] [address] Social History Tobacco Use Types Packs/Day Years [...] 12:45 PM CDT Appointment [facility] [address] [facility] [address] [place] [address] [place] [address] [place] [address] 03/23/2025 1:30 PM CDT Hospital Encounter [facility] [address] [facility] [address] [place] [address] [place] [address] [facility] [address] [place] [address] 03/25/2025 10:20 AM CDT Virtual Visit [facility] Sports Medicine [facility] [place] [address] [place] [address] [place] [address] [place] [address] 04/04/2025 12:00 PM CHAIN SPLITTER Office Visit [facility] Sleep Center [place] [address] [place] [address] Sugey Mccoy, HORTICULTURE INSTRUCTOR SINKER PULLER [address] [place] [address] [address] [place], [place] 803894 05/05/2025 9:00 AM CHAIN SPLITTER Office Visit [facility] Physical Medicine and Rehabilitation Clinic [address] [place] [phone] Jadon Floyd MD [address] [place] [address] 846685 05/30/2025 10:20 AM CHAIN SPLITTER Appointment [facility] [address] [facility] [address] [place] [address] Carlos Joyner MD [address] [place] [address] 459295 05/31/2025 2:00 PM CHAIN SPLITTER Virtual Visit [facility] Urology Clinic [address] [place] [phone] Carlos Joyner MD [address] [place] [address] 270425 07/25/2025 11:00 AM CHAIN SPLITTER Office Visit [facility] [address] [place] [address] [place] [address] [place] [address] documented as of this encounter Visit Diagnoses Not on filedocumented in this encounter Care Teams Torch Cutter Relationship Specialty [place] [address] [place] [address] PCP - General 03/05/23 Carlos Joyner MD [address] [place] [address] 268635 Urology 12/09/19 Jadon Murray MD [facility] [address] [phone] Referring Physician Pediatric Surgery 12/09/19 Maru Villagomez, RN Registered Nurse 12/10/19 Ang Slade MD [address] [place] [address] 797925 Urology 04/24/20 Carlos Joyner MD [address] [place] [address] 232115 Assigned Surgical Provider 12/24/20 Ang Slade MD [address] [place] [address] 09671 Urology 12/18/22 Lakshmi Wilhelm PA-C [address] [place] [address] 956455 Physician Poultry Hatchery Manager Urology 02/03/23 [place] [address] [place] [address] Assigned PCP 02/06/23 Alissa Perez PA-C [address] [place] [address] 33879 Physician Poultry Hatchery Manager Surgery 09/04/23 Lakshmi Wilhelm PA-C [address] [place] [address] 69334 Physician Poultry Hatchery Manager Urology 09/16/23 Aidee Valero PA-C [address] [place] [address] 72281 Assigned Musculoskeletal Provider 04/17/24 02/14/25 Carlos Joyner MD [address] [place] [address] Urology 01/26/25 Jaodn Floyd MD [address] [place] [address] 27769 Physician Physical Medicine and Rehabilitation 01/31/25 [place] [address] [place] [address] Assigned Musculoskeletal Provider 02/15/25 Tanisha Marlow 4120 [facility] [address] 03/30/24 documented as of this encounter
--- OUTSIDE RECORDS SUMMARY | 2025-03-12 19:28 | XMS_ITS | Encounter Summary ---
Author Organization [facility] Address [address] [place] [address] 9[address]78 Care Team Providers Care Office System Analyst Name Role Phone Carlos Joyner MD Unavailable +[phone] Jadon Murray MD Unavailable [phone] Maru Villagomez RN Unavailable Unavailable Ang Slade MD Unavailable +[phone] Carlos Joyner MD Unavailable +[phone] Ang Slade MD Unavailable [phone] Lakshmi WilhelmC Unavailable [phone] Heladio Willoughby MD Primary Care Provider [phone] Heladio Willoughby MD Unavailable Alissa Perez-Juan A Unavailable [phone] Lakshmi Wilhelm PA-C Unavailable [phone] Carlos Joyner MD Unavailable [phone] Jadon Floyd MD Unavailable +[phone] Cayden [...] Info) Description 03/23/2025 12:45 PM CDT Appointment [facility] [address] [facility] [address] [place] [address] [place] [address] [place] [address] [address] [place] [address] 03/23/2025 1:30 PM CDT Hospital Encounter [facility] [address] [facility] [address] [place] [address] [place] [address] [facility] [address] [place] [address] 03/25/2025 10:20 AM CDT Virtual Visit [facility] Medicine [facility] [place] [address] [facility] [address] [place] [address] [place] [address] [facility] [address] [place] [address] 04/04/2025 12:00 PM OB NURSE Office Visit [facility] Sleep Center [address] [address] Sugey Mccoy, DEPUTY REGISTER OF DEEDS INSTRUMENT SETTER [address] [place] [address] 05/05/2025 9:00 AM OB NURSE Office Visit [facility] Physical Medicine and Rehabilitation Clinic [address] [place] [address] Jadon Floyd MD [address] [place] [address] 578195 05/30/2025 10:20 AM OB NURSE Appointment [facility] [address] [place] [address] Carlos Joyner MD [address] [place] [address] 804385 05/31/2025 2:00 PM OB NURSE Virtual Visit [facility] Urology Clinic [address] [place] [address] Carlos Joyner MD [address] [place] [address] [phone] 07/25/2025 11:00 AM OB NURSE Office Visit [facility] [address] [place] [address] [place] [address] [place], [place] [phone] documented as of this encounter Visit Diagnoses Not on filedocumented in this encounter Care Teams Office System Analyst Relationship Specialty Start [place] [address] [place] [address] PCP - General 03/05/23 Carlos Joyner MD [address] [place] [address] [phone] Urology 12/09/19 Jadon Murray MD [facility] 2530 [facility] 550 [place] [address] Referring Physician Pediatric Surgery 12/09/19 Maru Villagomez, RN Registered Nurse 12/10/19 Ang Slade MD [address] [place] [address] 394 [place], [place] 699335 Urology 04/24/20 Carlos Joyner MD [address] [place] [address] 132205 Assigned Surgical Provider 12/24/20 Ang Slade MD [address] [place] [address] 455375 Urology 12/18/22 Lakshmi Wilhelm PA-C [address] [place] [address] 733445 Physician Rivet Spinner Urology 02/03/23 [place] [address] [place] [address] Assigned PCP 02/06/23 Alissa Perez PA-C [address] [place] [address] 002805 Physician Rivet Spinner Surgery 09/04/23 Lakshmi Wilhelm PA-C [address] [place] [address] 658405 Physician Rivet Spinner Urology 09/16/23 Carlos Joyner MD [address] [place], [place] 986595 Urology 01/26/25 Jadon Floyd MD [address] [place] [address] 160075 Physician Physical Medicine and Rehabilitation 01/31/25 [place] [address] [place] [address] Assigned Musculoskeletal Provider 02/15/25 Tanisha Marlow 4120 [facility] [address] 03/30/24 documented as of this encounter
--- OUTSIDE RECORDS SUMMARY | 2025-03-12 19:29 | XMS_ITS | Encounter Summary ---
Author Organization [place] Address [address] [place] [address] Care Team Providers Care Bander Hand Name Role Phone Carlos Joyner MD Unavailable +[phone] Jadon Murray MD Unavailable +[phone] Maru Villagomez RN Unavailable Unavailable Ang Slade MD Unavailable +[phone] Carlos Joyner MD Unavailable +[phone] Ang Slade MD Unavailable [phone] Lakshmi Wilhelm PA-C Unavailable [phone] Heladio Willoughby MD Primary Care Provider [phone] Heladio Willoughby MD Unavailable Alissa Perez PA-C Unavailable [phone] Lakshmi Wilhelm PA-C Unavailable +[phone] Aidee Valero PA-C Unavailable +[phone] Carlos Joyner MD Unavailable +[phone] Jadon Floyd MD Unavailable +[phone] Cayden Bejarano MD Unavailable Reason for Visit * Reason Onset Date Comments Referral 01/25/2025 Encounter Details Date Type Department Care Team (Late st Contact Info) Description 01/25/2025 Telephone [facility] Physical Medicine and Rehabilitation Clinic [place] [address] [address] Unknown Referral Social History Tobacco [...] [facility] - Occupational [...] Leon Serna - 01/25/2025 9:45 AM CDT [facility] Phone Message May a detailed message be left on voicemail: yes Reason for Call: Appointment Intake Referring Provider Name: Heladio Willoughby MD Diagnosis and/or Symptoms: Pressure injury of left lower back, stage 2 (H) History of pressure injury of skin Paraplegia (H) Action Taken: Other: Routed to [facility] Physical Medicine and Rehabilitation Adult [facility] Travel Screening: Not Applicable Please review and contact patient for scheduling, reasons for referral are not on scheduling guidelines documented in this encounter Plan of Treatment Upcoming Encounters Date Type Department Care Team (Late st Contact Info) Description 03/23/2025 12:45 PM CDT Appointment [facility] [place] [facility] [address] [facility] [address] [place] [address] [place] [address] [place] [address] 03/23/2025 1:30 PM CDT Hospital Encounter [facility] [address] [facility] [address] [place] [address] [place] [address] [place] [address] 03/25/2025 10:20 AM CDT Virtual Visit [facility] Sports Medicine [facility] [address] [facility] [address] [place] [address] [place] [address] [place] [address] 04/04/2025 12:00 PM SALES MANAGER Office Visit [facility] Sleep [address] [address] Sugey Mccoy, BOX TRUCK DRIVER [address] [address] 05/05/2025 9:00 AM SALES MANAGER Office Visit [facility] Physical Medicine and Rehabilitation Clinic [address] [phone] Jadon Floyd MD [address] [place] [address] 950125 05/30/2025 10:20 AM SALES MANAGER Appointment [facility] [address] [facility] [address] [place] [address] Carlos Joyner MD [address] [place] [address] 692825 05/31/2025 2:00 PM SALES MANAGER Virtual Visit [facility] Urology Clinic [address] [phone] Carlos Joyner MD 909 [place] [address] 07/25/2025 11:00 AM SALES MANAGER [facility] [address] [place] [address] [place] [address] [facility] [place], [place] [phone] documented as of this encounter Visit Diagnoses Not on filedocumented in this encounter Care Teams Bander Hand Relationship Specialty [place] [address] [address] [place], [place] [phone] PCP - General 03/05/23 Carlos Joyner MD [address] [place] [address] 344815 Urology 12/09/19 Jadon Murray MD [facility] [address] [address] Referring Physician Pediatric Surgery 12/09/19 Maru Villagomez RN Registered Nurse 12/10/19 Ang Slade MD [address] [place] [address] Urology 04/24/20 Carlos Joyner MD [address] [place] [address] 781835 Assigned Surgical Provider 12/24/20 Ang Slade MD [address] [place] [address] 394 [place], [place] 322055 Urology 12/18/22 Lakshmi Wilhelm PA-C [address] [place] [address] Physician Desizing Machine Offbearer Urology 02/03/23 [place] [address] [place] [address] Assigned PCP 02/06/23 Alissa Perez PA-C [address] [place] [address] 961235 Physician Desizing Machine Offbearer Surgery 09/04/23 Lakshmi Wilhelm PA-C [address] [place] [address] 872145 Physician Desizing Machine Offbearer Urology 09/16/23 Aidee Valero PA-C [address] [place] [address] 791475 Assigned Musculoskeletal Provider 04/17/24 02/14/25 Carlos Joyner MD [address] [place] [address] 116945 Urology 01/26/25 Jadon Floyd MD [address] [place] [address] 728595 Physician Physical Medicine and Rehabilitation 01/31/25 [place] [address] [place] [address] Assigned Musculoskeletal Provider 02/15/25 Tanisha Marlow 4120 [facility] [address] 03/30/24 documented as of this encounter
--- OUTSIDE RECORDS SUMMARY | 2025-03-12 19:29 | XMS_ITS | Encounter Summary ---
Author Organization [facility] Address [address] [place] [address]956 Care Team Providers Care Plasterer Spot Name Role Phone Carlos Joyner MD Unavailable + [phone] Jadon Murray MD Unavailable +[phone] Maru Villagomez RN Unavailable Unavailable Ang Slade MD Unavailable +[phone] Carlos Joyner MD Unavailable + [phone] Ang Slade MD Unavailable +- [phone] Lakshmi Wilhelm-C Unavailable +[phone] Heladio Willoughby MD Primary Care Provider +[phone] Heladio Willoughby MD Unavailable Alissa Perez PA-C Unavailable +[phone] Lakshmi Wilhelm-C Unavailable +- [phone] Aidee Valero PA-C Unavailable +[phone] Carlos Joyner MD Unavailable + [phone] Jadon Floyd MD Unavailable +[phone] Cayden Bejarano MD Unavailable Encounter Details Date Type Department Care Team (Late st Contact Info) Description 06/15/[address] [address] Sarika Calhoun MA Social History [...] Info) Description 03/23/2025 12:45 PM CDT Appointment [facility] [address] [place] [address] [place] [address] [place] [address] 03/23/2025 1:30 PM CDT Hospital Encounter [facility] [address] [facility] [address] [place] [address] [place] [address] [place] [address] 03/25/2025 10:20 AM CDT Virtual Visit [facility] [place] [address] [place] [address] [place] [address] [place] [address] 04/04/2025 12:00 PM DIE INSPECTOR Office Visit [facility] [address] [phone] Sugey Mccoy, ASSISTANT PARALEGAL [address] 383594 05/05/2025 9:00 AM DIE INSPECTOR Office Visit [facility] [address] 3rd [place] [phone] Jadon Floyd MD [address] [place] [address] 430865 05/30/2025 10:20 AM DIE INSPECTOR Appointment [facility] [address] [place] [address] Carlos Joyner MD [address] [place] [address] 784275 05/31/2025 2:00 PM DIE INSPECTOR Virtual Visit [facility] [address] [place] [address] Carlos Joyner MD [address] [place] [address] [id number] 07/25/2025 11:00 AM DIE INSPECTOR Office Visit [facility] [address] [place] [phone] [place] [address] [address] [place] [phone] documented as of this encounter Visit Diagnoses Not on filedocumented in this encounter Care Teams Plasterer Spot Relationship Specialty Start [place] [address] [place] [address] PCP - General 03/05/23 Carlos Joyner MD [address] [place] [address] 536065 Urology 12/09/19 Jadon Murray MD [facility] 2530 [facility] 550 [place] [address] Referring Physician Pediatric Surgery 12/09/19 Maru Villagomez, RN Registered Nurse 12/10/19 Ang Slade MD [address] [place] [address] 12484 Urology 04/24/20 Carlos Joyner MD [address] [place] [address] 713355 Assigned Surgical Provider 12/24/20 Ang Slade MD [address] [address] Urology 12/18/22 Lakshmi Wilhelm PA-C [address] [place] [address] 58427 Physician Speech Therapy Director Urology 02/03/23 [place] [address] [facility] [place] [address] Assigned PCP 02/06/23 Alissa Perez PA-C [address] [place] [address] 24141 Physician Speech Therapy Director Surgery 09/04/23 Lakshmi Wilhelm PA-C [address] [place] [address]2485 Physician Speech Therapy Director Urology 09/16/23 Aidee Valero PA-C [address] [place] [address] 30824 Assigned Musculoskeletal Provider 04/17/24 02/14/25 Carlos Joyner MD [address] [place] [address] 498365 Urology 01/26/25 Jadon Floyd MD [address] [place] [address] 026755 Physician Physical Medicine and Rehabilitation 01/31/25 [place] [address] [place] [address] Assigned Musculoskeletal Provider 02/15/25 Tanisha Marlow 4120 [facility] [id number] 03/30/24 documented as of this encounter
--- OUTSIDE RECORDS SUMMARY | 2025-03-12 19:29 | XMS_ITS | Encounter Summary ---
Author Organization [place] Address [address] [place] [address] 57016 Care Team Providers Care Machine Tool Technician Instructor Name Role Phone Carlos Joyner MD Unavailable + [phone] Jadon Murray MD Unavailable +[phone] Maru Villagomez RN Unavailable Unavailable Ang Slade MD Unavailable +[phone] Carlos Joyner MD Unavailable + [phone] Ang Slade MD Unavailable +- [phone] Lakshmi Wilhelm-C Unavailable +[phone] Heladio Willoughby MD Primary Care Provider +[phone] Heladio Willoughby MD Unavailable Alissa Perez PA-C Unavailable [phone] Lakshmi Wilhelm PA-C Unavailable +- [phone] Aidee Valero PA-C Unavailable +[phone] Carlos Joyner MD Unavailable + [phone] Jadon Floyd MD Unavailable +[phone] Cayden Bejarano MD Unavailable Encounter Details Date Type Department Care Team (Late st Contact Info) Description 12/17/[address] [address] [place] [address] [place] [address] Social History Tobacco Use Types Packs/Day Years [...] Info) Description 03/23/2025 12:45 PM CDT Appointment [facility] [address] [facility] [address] [place] [address] [place] [address] [place] [address] 03/23/2025 1:30 PM CDT Hospital Encounter [facility] [address] [place] [address] [place] [address] [place] [address] 03/25/2025 10:20 AM CDT Virtual Visit [facility] [place] [address] [place] [address] [place] [address] [place] [address] 04/04/2025 12:00 PM MAINTAINER OPERATOR Office Visit [facility] [place] [address] [place] [phone] Sugey Mccoy, LEARNING MANAGER [facility] [address] [place], [place] 845474 05/05/2025 9:00 AM MAINTAINER OPERATOR Office Visit [facility] [address] 3rd [place] [phone] Jadon Floyd MD [address] [place] [address] 587435 05/30/2025 10:20 AM MAINTAINER OPERATOR Appointment [facility] [address] [facility] [address] [place] [address] Carlos Joyner MD [address] [place] [address] [phone] 05/31/2025 2:00 PM MAINTAINER OPERATOR Virtual Visit [facility] [address] 4th [place] [address] Carlos Joyner MD [address] [place] [address] 956505 07/25/2025 11:00 AM MAINTAINER OPERATOR Office Visit [facility] [address] [place] [address] [place] [address] [place] [address] documented as of this encounter Visit Diagnoses Not on filedocumented in this encounter Care Teams Machine Tool Technician Instructor Relationship Specialty Start [place] [address] [place] [address] PCP - General 03/05/23 Carlos Joyner MD [address] [place] [address] 43811 Urology 12/09/19 Jadon Murray MD [facility] 2530 [facility] [address] [place], [place] [phone] Referring Physician Pediatric Surgery 12/09/19 Maru Villagomez, RN Registered Nurse 12/10/19 Ang Slade MD [address] [place] [address]123 Urology 04/24/20 Carlos Joyner MD [address] [place] [address] 928905 Assigned Surgical Provider 12/24/20 Ang Slade MD [address] [place] [address]64[address] Urology 12/18/22 Lakshmi Wilhelm PA-C [address] [place] [address] 960295 Physician Museum Specialist Urology 02/03/23 [place] [address] [place] [address] Assigned PCP 02/06/23 Alissa Perez PA-C [address] [place] [address] Physician Museum Specialist Surgery 09/04/23 Lakshmi Wilhelm PA-C [address] [place] [address] 42913 Physician Museum Specialist Urology 09/16/23 Aidee Valero PA-C [address] [place] [address] Assigned Musculoskeletal Provider 04/17/24 02/14/25 Carlos Joyner MD [address] [place] [address] 69672 Urology 01/26/25 Jadon Floyd MD [address] [place] [address] 86601 Physician Physical Medicine and Rehabilitation 01/31/25 [place] [address] [address] Assigned Musculoskeletal Provider 02/15/25 Tanisha Marlow 4120 [facility] [address] 03/30/24 documented as of this encounter
--- OUTSIDE RECORDS SUMMARY | 2025-03-12 19:29 | XMS_ITS | Encounter Summary ---
Author Organization [place] Address [address] [place] [address] Care Team Providers Care Lamp Mechanic Name Role Phone Carlos Joyner MD Unavailable + [phone] Jadon Murray MD Unavailable +[phone] Maru Villagomez RN Unavailable Unavailable Ang Slade MD Unavailable +[phone] Carlos Joyner MD Unavailable +[phone] Ang Slade MD Unavailable +[phone] Lakshmi Wilhelm-C Unavailable +[phone] Heladio Willoughby MD Primary Care Provider +[phone] Heladio Willoughby MD Unavailable Alissa Perez PA-C Unavailable [phone] Lakshmi Wilhelm-C Unavailable +[phone] Aidee Valero PA-C Unavailable +[phone] Carlos Joyner MD Unavailable + [phone] Jadon Floyd MD Unavailable +[phone] Cayden Bejarano MD Unavailable Encounter Details Date Type Department Care Team (Late st Contact Info) Description 04/01/2024 [facility] [place] [address] [facility] 4th [place] [address] Aidee Valero PA-C [address] [place] [address] Social History Tobacco Use Types Packs/Day Years [...] Info) Description 03/23/2025 12:45 PM CDT Appointment [facility] [address] [facility] [address] [place] [address] [place] [address] [place] [address] 03/23/2025 1:30 PM CDT Hospital Encounter [facility] [address] [facility] [address] [place] [address] [place] [address] [place] [address] 03/25/2025 10:20 AM CDT Virtual Visit [facility] [place] [address] [facility] [address] [place] [address] [place] [address] [place] [address] 04/04/2025 12:00 PM DIET SUPERVISOR Office Visit [facility] [address] [phone] Sugey Mccoy, CRNA [address] 394724 05/05/2025 9:00 AM DIET SUPERVISOR Office Visit [facility] [address] [phone] Jadon Floyd MD [address] [place] [address] 190665 05/30/2025 10:20 AM DIET SUPERVISOR Appointment [facility] [address] [facility] [address] [place] [address]25[address] Carlos Joyner MD [address] [place] [address] 512975 05/31/2025 2:00 PM DIET SUPERVISOR Virtual Visit [facility] [address] [address] Carlos Joyner MD 909 [place] [address] 07/25/2025 11:00 AM DIET SUPERVISOR Office Visit [facility] [address] [place] [address] [place] [address] [address] [place], [place] [phone] documented as of this encounter Visit Diagnoses Not on filedocumented in this encounter Care Teams Lamp Mechanic Relationship Specialty Start [place] [address] [address] [place], [place] [phone] PCP - General 03/05/23 Carlos Joyner MD [address] [place] [address] 94889 Urology 12/09/19 Jadon Murray MD [facility] [address] [address] Referring Physician Pediatric Surgery 12/09/19 Maru Villagomez, OTILIO Registered Nurse 12/10/19 Ang Slade MD [address] [place] [address] 99732 Urology 04/24/20 Carlos Joyner MD [address] [place] [address] 23042 Assigned Surgical Provider 12/24/20 Ang Slade MD [address] [place] [address] 71470 Urology 12/18/22 Lakshmi Wilhelm PA-C [address] [place] [address] 47018 Physician Process Supervisor Urology 02/03/23 [place] [address] [place] [address] Assigned PCP 02/06/23 Alissa Perez PA-C [address] [place] [address] 78677 Physician Process Supervisor Surgery 09/04/23 Lakshmi Wilhelm PA-C [address] [place] [address] 67001 Physician Process Supervisor Urology 09/16/23 Aidee Valero PA-C [address] [place] [address] 95690 Assigned Musculoskeletal Provider 04/17/24 02/14/25 Carlos Joyner MD [address] [place] [address] 29010 Urology 01/26/25 Jadon Floyd MD [address] [place] [address] 497385 Physician Physical Medicine and Rehabilitation 01/31/25 [place] [address] [place] [address] Assigned Musculoskeletal Provider 02/15/25 Tanisha Marlow 4120 [facility] [address] 03/30/24 documented as of this encounter
--- OUTSIDE RECORDS SUMMARY | 2025-03-12 19:29 | XMS_ITS | Encounter Summary ---
Author Organization [place] Address [address] [place] [address]88 Care Team Providers Care Gate Clerk Name Role Phone Carlos Joyner MD Unavailable +[phone] Jadon Murray MD Unavailable +[phone] Maru Villagomez RN Unavailable Unavailable Ang Slade MD Unavailable +[phone] Carlos Joyner MD Unavailable +[phone] Ang Slade MD Unavailable +[phone] Lakshmi Wilhelm PA-C Unavailable +[phone] Heladio Willoughby MD Primary Care Provider +[phone] Heladio Willoughby MD Unavailable Alissa Perez PA-C Unavailable [phone] Lakshmi Wilhelm PA-C Unavailable +[phone] Carlos Joyner MD Unavailable +[phone] Jadon Floyd MD Unavailable +[phone] Cayden Bejarano MD Unavailable Encounter Details Date Type Department Care Team (Late st Contact Info) Description 02/22/2025 [facility] [address] [facility] [address] [place] [address] Eliza Carty, OT 909 [place] [address] Social History Tobacco Use Types Packs/Day Years [...] Info) Description 03/23/2025 12:45 PM CDT Appointment [facility] [address] [facility] [address] [place] [address] [place] [address] [place] [address] 03/23/2025 1:30 PM CDT Hospital Encounter [facility] [address] [place] [address] [place] [address] [place] [address] 03/25/2025 10:20 AM CDT Virtual Visit [facility] [place] [address] [address] [place] [address] [place] [address] [place] [address] 04/04/2025 12:00 PM ACOUSTIC INTELLIGENCE SPECIALIST Office Visit [facility] [place] [address] [place] [address] Sugey Mccoy APRN [facility] [address] [place], [place] [address]E [address] [place] [address] 05/05/2025 9:00 AM ACOUSTIC INTELLIGENCE SPECIALIST Office Visit [facility] [address]rd [place] [address] Jadon Floyd MD [address] [place] [address] 634415 05/30/2025 10:20 AM ACOUSTIC INTELLIGENCE SPECIALIST Appointment [facility] [address] [facility] [address] [place] [address] Carlos Joyner MD [address] [place] [address] 427805 05/31/2025 2:00 PM ACOUSTIC INTELLIGENCE SPECIALIST Virtual Visit [facility] [address]th [place] [address] Carlos Joyner MD [address] [place] [address] 97836455 07/25/2025 11:00 AM ACOUSTIC INTELLIGENCE SPECIALIST Office Visit [facility] [address] [place] [address] [place] [address] [place] [address] documented as of this encounter Visit Diagnoses Not on filedocumented in this encounter Care Teams Gate Clerk Relationship Specialty [place] [address] [place] [address] PCP - General 03/05/23 Carlos Joyner MD [address] [place] [address] 81395 Urology 12/09/19 Jadon Murray MD [facility] [address] [address] Referring Physician Pediatric Surgery 12/09/19 Maru Villagomez, OTILIO Registered Nurse 12/10/19 Ang Slade MD [address] [place] [address] 106625 Urology 04/24/20 Carlos Joyner MD [address] [place] [address] 59480 Assigned Surgical Provider 12/24/20 Ang Slade MD [address] [place] [address] 58793 Urology 12/18/22 Lakshmi Wilhelm PA-C [address] [place] [address] 984085 Physician Electric Razor Assembler Urology 02/03/23 [place] [address] [place] [address] Assigned PCP 02/06/23 Alissa Perez PA-C [address] [place] [address] 441605 Physician Electric Razor Assembler Surgery 09/04/23 Lakshmi Wilhelm PA-C [address] [place] [address] 023655 Physician Electric Razor Assembler Urology 09/16/23 Carlos Joyner MD [address] [place] [address] 663065 Urology 01/26/25 Jadon Floyd MD [address] [place] [address] 238195 Physician Physical Medicine and Rehabilitation 01/31/25 [place] [address] [place], [place] 390767 Assigned Musculoskeletal Provider 02/15/25 Tanisha Marlow 4120 [facility] [phone] 03/30/24 documented as of this encounter
--- OUTSIDE RECORDS SUMMARY | 2025-03-12 19:29 | XMS_ITS | Encounter Summary ---
Author Organization [place] Address [address] [place] [address] 91184 Care Team Providers Care Utility Forester Name Role Phone Carlos Joyner MD Unavailable + [phone] Jadon Murray MD Unavailable +[phone] Maru Villagomez RN Unavailable Unavailable Ang Slade MD Unavailable +[phone] Carlos Joyner MD Unavailable +[phone] Ang Slade MD Unavailable +[phone] Lakshmi Wilhelm-C Unavailable +[phone] Heladio Willoughby MD Primary Care Provider +[phone] Heladio Willoughby MD Unavailable Alissa Perez PA-C Unavailable [phone] Lakshmi Wilhelm-C Unavailable +[phone] Aidee Valero PA-C Unavailable +[phone] Carlos Joyner MD Unavailable +[phone] Jadon Floyd MD Unavailable +[phone] Cayden Bejarano MD Unavailable Encounter Details Date Type Department Care Team (Late st Contact Info) Description 08/26/2024 [facility] [place] [id number] [facility] 4th [place] [address] Sarika Tomlinson Social History Tobacco [...] Answer Date Recorded PHQ-2 Score Incomplete 07/21/2024 [facility] [...] 12:45 PM CDT Appointment [facility] [address] [facility] [address] [place] [address] [place] [address] [place] [address] 03/23/2025 1:30 PM CDT Hospital Encounter [facility] [address] [facility] [address] [place] [address] [place] [address] [place] [address] 03/25/2025 10:20 AM CDT Virtual Visit [facility] [place] [address] [place] [address] [address] [place] [address] Cayden Bejarano MD [address] [place], [place] [address] [place] [address] 04/04/2025 12:00 PM CERTIFIED NURSE OPERATING ROOM Office Visit [facility] [address] [phone] Sugey Mccoy APRN [address] 379824 05/05/2025 9:00 AM CERTIFIED NURSE OPERATING ROOM Office Visit [facility] [address] [place] [address]48[address] Jadon Floyd MD [address] [place] [address] 05/30/2025 10:20 AM CERTIFIED NURSE OPERATING ROOM Appointment [facility] [address] [place] [address] Carlos Joyner MD [address] [place] [address] 710585 05/31/2025 2:00 PM CERTIFIED NURSE OPERATING ROOM Virtual Visit [facility] [address] [place] [address] Carlos Joyner MD [address] [place] [address] 311515 07/25/2025 11:00 AM CERTIFIED NURSE OPERATING ROOM Office Visit [facility] [address] [place] [address] [place] [address] [place], [place] [phone] documented as of this encounter Visit Diagnoses Not on filedocumented in this encounter Care Teams Utility Forester Relationship Specialty Start [place] [address] [place], [place] [phone] PCP - General 03/05/23 Carlos Joyner MD [address] [place] [address] 56777 Urology 12/09/19 Jadon Murray MD [facility] 2530 [facility] 550 [place] [address] Referring Physician Pediatric Surgery 12/09/19 Maru Villagomez, RN Registered Nurse 12/10/19 Ang Slade MD 420 [facility] 394 [place], [place] 861095 Urology 04/24/20 Carlos Joyner MD [address] [place] [address]455 Assigned Surgical Provider 12/24/20 Ang Slade MD 420 [facility] 394 [place], [place] 439055 MD Urology 12/18/22 Lakshmi Wilhelm PA-C [address] [place] [address] 599565 Physician Textile Scrap Salvager Urology 02/03/23 [place] [address] [place] [address] Assigned PCP 02/06/23 Alissa Perez PA-C [address] [place] [address] 805915 Physician Textile Scrap Salvager Surgery 09/04/23 Lakshmi Wilhelm PA-C [address] [place] [address] 008165 Physician Textile Scrap Salvager Urology 09/16/23 Aidee Valero PA-C [address] [place] [address] [place] [address] Assigned Musculoskeletal Provider 04/17/24 02/14/25 Carlos Joyner MD [address] [place] [address] Urology 01/26/25 Jadon Floyd MD [address] [place] [address] 33720 Physician Physical Medicine and Rehabilitation 01/31/25 [place] [address] [place] [address] Assigned Musculoskeletal Provider 02/15/25 Tanisha Marlow 4120 [facility] [place] [phone] 03/30/24 documented as of this encounter
--- OUTSIDE RECORDS SUMMARY | 2025-03-12 19:29 | XMS_ITS | Encounter Summary ---
Author Organization [place] Address [address] [place] [address] 69891 Care Team Providers Care Tool Maintenance Worker Name Role Phone Carlos Joyner MD Unavailable [phone] Jadon Murray MD Unavailable [phone] Maru Villagomez RN Unavailable Unavailable Ang Slade MD Unavailable +[phone] Carlos Joyner MD Unavailable +[phone] Ang Slade MD Unavailable +[phone] Lakshmi Wilhelm-C Unavailable +[phone] Heladio Willoughby MD Primary Care Provider +[phone] Heladio Willoughby MD Unavailable Alissa Perez PA-C Unavailable [phone] Lakshmi Wilhelm-C Unavailable +[phone] Aidee Valero PA-C Unavailable +[phone] Carlos Joyner MD Unavailable +[phone] Jadon Floyd MD Unavailable +[phone] Cayden Bejarano MD Unavailable Encounter Details Date Type Department Care Team (Late st Contact Info) Description 06/23/2024 [facility] Urology [place] 172299 [facility] 4th [place] [address] Carlos Joyner MD [address] [place] [address] Social History Tobacco Use Types Packs/Day Years [...] Info) Description 03/23/2025 12:45 PM CDT Appointment [facility] [address] [facility] [address] [place] [address] [place] [address] [place] [address] 03/23/2025 1:30 PM CDT Hospital Encounter [facility] [address] [facility] [address] [place] [address] [place] [address] [place] [address] 03/25/2025 10:20 AM CDT Virtual Visit [facility] [address] [facility] [address] [place] [address] [place] [address] [place] [address] 04/04/2025 12:00 PM SHREDDING MACHINE KNIFE CHANGER Office Visit [facility] [address] [phone] Sugey Mccoy, LOGISTICS PLANNING MANAGER [address] 573084 05/05/2025 9:00 AM SHREDDING MACHINE KNIFE CHANGER Office Visit [facility] [address] [address] Jadon Floyd MD [address] [place] [address] 741295 05/30/2025 10:20 AM SHREDDING MACHINE KNIFE CHANGER Appointment [facility] [address] [facility] [address] [place] [address] Carlos Joyner MD [address] [place] [address] 911655 05/31/2025 2:00 PM SHREDDING MACHINE KNIFE CHANGER Virtual Visit [facility] [address] [phone] Carlos Joyner MD [address] [place], [place] 683665 07/25/2025 11:00 AM SHREDDING MACHINE KNIFE CHANGER Office Visit [facility] [address] [place] [address] [place] [address] [place], [place] 5411668 documented as of this encounter Visit Diagnoses Not on filedocumented in this encounter Care Teams Tool Maintenance Worker Relationship Specialty Start [place] [address] [address] [place], [place] [phone] PCP - General 03/05/23 Carlos Joyner MD [address] [place] [address] 462[address] Urology 12/09/19 Jadon Murray MD [facility] [address] [address] Referring Physician Pediatric Surgery 12/09/19 Maru Villagomez RN Registered Nurse 12/10/19 Ang Slade MD 420 [facility] 394 [place] [address] Urology 04/24/20 Carlos Joyner MD [address] [place] [address] 12228 Assigned Surgical Provider 12/24/20 Ang Slade MD [address] [place] [address] Urology 12/18/22 Lakshmi Wilhelm PA-C [address] [place] [address] 66030 Physician Tier And Detonator Urology 02/03/23 [place] [address] [place] [address] Assigned PCP 02/06/23 Alissa Perez PA-C [address] [place] [address] 46048 Physician Tier And Detonator Surgery 09/04/23 Lakshmi Wilhelm PA-C [address] [place] [address] 9[address] Physician Tier And Detonator Urology 09/16/23 Aidee Valero PA-C [address] [place] [address] 28344 Assigned Musculoskeletal Provider 04/17/24 02/14/25 Carlos Joyner MD [address] [place] [address] Urology 01/26/25 Jadon Floyd MD [address] [place] [address] 464965 Physician Physical Medicine and Rehabilitation 01/31/25 [place] [address] [place] [address] Assigned Musculoskeletal Provider 02/15/25 Tanisha Marlow 4120 [facility] [address] 03/30/24 documented as of this encounter
--- OUTSIDE RECORDS SUMMARY | 2025-03-12 19:29 | XMS_ITS | Encounter Summary ---
Author Organization [place] Address [address] [place] [address] 14285 Care Team Providers Care Director Call Center Sales Name Role Phone Carlos Joyner MD Unavailable +[phone] Jadon Murray MD Unavailable +[phone] Maru Villagomez RN Unavailable Unavailable Ang Slade MD Unavailable +[phone] Carlos Joyner MD Unavailable +[phone] Ang Slade MD Unavailable +[phone] Lakshmi WilhelmC Unavailable +[phone] Heladio Willoughby MD Primary Care Provider [phone] Heladio Willoughby MD Unavailable Alissa Perez-Juan A Unavailable [phone] Lakshmi Wilhelm PA-C Unavailable +[phone] Carlos Joyner MD Unavailable +[phone] Jadon Floyd MD Unavailable +[phone] Cayden Bejarano MD Unavailable Reason for Visit * Reason Onset Date Comments Pre Visit Planning - Done 02/24/2025 Encounter Details Date Type Department Care Team (Late st Contact Info) Description 02/24/2025 PRE VISIT [facility] Urology [place] 293759 [facility] 4th [place] [address] Estrella Martinez, CM 420 [facility], ROOM [address] [place] [address] Pre Visit Planning - Done Social History [...] -Referral from Rosita Velasco RN for Kendall with Jim MINAYA -UDGauri 10/15/23 Records/imaging/labs/orders: Available Rooming: Virtual documented in this encounter Plan of Treatment Upcoming Encounters Date Type Department Care Team (Late st Contact Info) Description 03/23/2025 12:45 PM CDT Appointment [facility] [address] [place] [address] [place] [address] [place], [place] 274427 03/23/2025 1:30 PM CDT Hospital Encounter [facility] [address] [facility] [address] [place] [address] [place] [address] [place] [address] 03/25/2025 10:20 AM CDT Virtual Visit [facility] [place] [address] [place] [address] [place] [address] [place] [address] 04/04/2025 12:00 PM CERTIFIED FLEX ENDOSCOPE REPROCESSOR Office Visit [facility] [address] [place] [phone] Sugey Mccoy, [employer] WEBSPHERE COMMERCE DEVELOPER [facility] [address] [place] [address] [address] [place] [address] 05/05/2025 9:00 AM CERTIFIED FLEX ENDOSCOPE REPROCESSOR Office Visit [facility] [address] 3rd [place] [address] Jadon Floyd MD [address] [place] [address] 271595 05/30/2025 10:20 AM CERTIFIED FLEX ENDOSCOPE REPROCESSOR Appointment [facility] [address] [facility] [address] [place] [address] Carlos Joyner MD [address] [place] [address] 372565 05/31/2025 2:00 PM CERTIFIED FLEX ENDOSCOPE REPROCESSOR Virtual Visit [facility] Clinic [address] 4th [place] [phone] Carlos Joyner MD [address] [place] [address] 07/25/2025 11:00 AM CERTIFIED FLEX ENDOSCOPE REPROCESSOR Office Visit [facility] [address] [place] [address] [place] [address] [facility] [place] [phone] documented as of this encounter Visit Diagnoses Not on filedocumented in this encounter Care Teams Director Call Center Sales Relationship Specialty Start [place] [address] [address] [place] [id number] PCP - General 03/05/23 Carlos Joyner MD [address] [place] [address] 89[address] Urology 12/09/19 Jadon Murray MD [facility] 2530 [facility] 550 [place] [address] Referring Physician Pediatric Surgery 12/09/19 Maru Villagomez, RN Registered Nurse 12/10/19 Ang Slade MD [address] [place] [address] [address] [place] [address] Urology 04/24/20 Carlos Joyner MD 9 [place] [address] Assigned Surgical Provider 12/24/20 Ang Slade MD [address] [place] [address] [address] [place] [address] Urology 12/18/22 Lakshmi Wilhelm PA-C [address] [place] [address] Physician Limited Radiology Technician Urology 02/03/23 [place] [address] [address] [place] [address] Assigned PCP 02/06/23 Alissa Perez PA-C [address] [place] [address]394 Physician Limited Radiology Technician Surgery 09/04/23 Lakshmi Wilhelm PA-C [address] [place] [address] 74074 Physician Limited Radiology Technician Urology 09/16/23 Carlos Joyner MD [address] [place] [address] Urology 01/26/25 Jadon Floyd MD [address] [place] [address]227 Physician Physical Medicine and Rehabilitation 01/31/25 [place] [address] [place] [id number] Assigned Musculoskeletal Provider 02/15/25 Tanisha Marlow 4120 [facility] [place] [address] 03/30/24 documented as of this encounter
--- OUTSIDE RECORDS SUMMARY | 2025-03-12 19:29 | XMS_ITS | Encounter Summary ---
Author Organization [employer] Address [address] [place] [address]1994 Care Team Providers Care Chartered Financial Analyst Name Role Phone Carlos Joyner MD Unavailable +[phone] Jadon Murray MD Unavailable +[phone] Maru Villagomez RN Unavailable Unavailable Ang Slade MD Unavailable [phone] Carlos Joyner MD Unavailable +[phone] Ang Slade MD Unavailable [phone] Lakshmi Wilhelm-C Unavailable +[phone] Heladio Willoughby MD Primary Care Provider [phone] Heladio Willoughby MD Unavailable Alissa Perez PA-C Unavailable [phone] Lakshmi Wilhelm-C Unavailable +[phone] Aidee Valero PA-C Unavailable +[phone] Carlos Joyner MD Unavailable +[phone] Jadon Floyd MD Unavailable +[phone] Cayden Bejarano MD Unavailable Encounter Details Date Type Department Care Team (Late st Contact Info) Description 12/06/2024 [facility] Clinic [place] 924849 [facility] 4th [place] [address] Rosita Velasco RN Social History [...] Info) Description 03/23/2025 12:45 PM CDT Appointment [facility] [address] [facility] [address] [place] [address] Cayden Bejarano [place] [address] [place] [address] 03/23/2025 1:30 PM CDT Hospital Encounter [facility] [address] [facility] [address] [place] [address] Cayden Bejarano [place] [address] [place] [address] 03/25/2025 10:20 AM CDT Virtual Visit [facility] [place] [address] [employer] [facility] [address] [place] [address] [place] [address] [address] [place] [address] 04/04/2025 12:00 PM STRIKE WARFARE/MISSILE SYSTEMS OFFICER Office Visit [facility] [place] [address] [place] [address] Sugey Mccoy APRN [facility] [address] [place] [address] [address] [place] [address] 05/05/2025 9:00 AM STRIKE WARFARE/MISSILE SYSTEMS OFFICER Office Visit [facility] [address] 3rd [place] [address] Jadon Floyd MD [address] [place] [address] 273775 05/30/2025 10:20 AM STRIKE WARFARE/MISSILE SYSTEMS OFFICER Appointment [facility] [address] [facility] [address] [place] [address] Carlos Joyner MD [address] [place] [address] 006665 05/31/2025 2:00 PM STRIKE WARFARE/MISSILE SYSTEMS OFFICER Virtual Visit [facility] [address] 4th [place] [address] Carlos Joyner MD [address] [place] [address] 02446455 07/25/2025 11:00 AM STRIKE WARFARE/MISSILE SYSTEMS OFFICER Office Visit [facility] [address] [place] [address] [place] [address] [place] [address] documented as of this encounter Visit Diagnoses Not on filedocumented in this encounter Care Teams Chartered Financial Analyst Relationship Specialty Start [place] [address] [place] [address] PCP - General 03/05/23 Carlos Joyner MD [address] [place] [address] Urology 12/09/19 Jadon Murray MD [facility] [address] [address] Referring Physician Pediatric Surgery 12/09/19 Maru Villagomez, OTILIO Registered Nurse 12/10/19 Ang Slade MD [address] [place] [address] Urology 04/24/20 Carlos Joyner MD [address] [place] [address] 63359 Assigned Surgical Provider 12/24/20 Ang Slade MD [address] [place] [address] 91100 Urology 12/18/22 Lakshmi Wilehlm PA-C [address] [place] [address] 50710 Physician Rn Manager Urology 02/03/23 [place] [address] [facility] [place], [place] 0772668 Assigned PCP 02/06/23 Alissa Perez PA-C [address] [place] [address] 105075 Physician Rn Manager Surgery 09/04/23 Lakshmi Wilhelm PA-C [address] [place] [address] 45969 Physician Rn Manager Urology 09/16/23 Aidee Valero PA-C [address] [place] [address] 62423 Assigned Musculoskeletal Provider 04/17/24 02/14/25 Carlos Joyner MD [address] [place] [address] 971845 Urology 01/26/25 Jadon Floyd MD [address] [place] [address] 356625 Physician Physical Medicine and Rehabilitation 01/31/25 [place] [address] [place] [address] Assigned Musculoskeletal Provider 02/15/25 Tanisha Marlow 4120 [facility] [address] 03/30/24 documented as of this encounter
--- OUTSIDE RECORDS SUMMARY | 2025-03-12 19:29 | XMS_ITS | Encounter Summary ---
Author Organization [facility] Address [address] [place] [address]957 Care Team Providers Care Hot Sealing Machine Operator Name Role Phone Carlos Joyner MD Unavailable + [phone] Jadon Murray MD Unavailable +[phone] Maru Villagomez RN Unavailable Unavailable Ang Slade MD Unavailable [phone] Carlos Joyner MD Unavailable + [phone] Ang Slade MD Unavailable +[phone] Lakshmi Wilhelm-C Unavailable +[phone] Heladio Willoughby MD Primary Care Provider [phone] Heladio Willoughby MD Unavailable Alissa Perez PA-C Unavailable [phone] Lakshmi Wilhelm-C Unavailable +[phone] Aidee Valero PA-C Unavailable +[phone] Carlos Joyner MD Unavailable + [phone] Jadon Floyd MD Unavailable +[phone] Cayden Bejarano MD Unavailable Encounter Details Date Type Department Care Team (Late st Contact Info) Description 08/20/[address] [address] Mercy Feliz, RN Social History [...] Answer Date Recorded PHQ-2 Score Incomplete 07/21/2024 [facility] - [...] 12:45 PM CDT Appointment [facility] [address] [facility] [address] [place] [address] [place] [address] [place] [address] 03/23/2025 1:30 PM CDT Hospital Encounter [facility] [address] [facility] [address] [place] [address] [place] [address] [address] [place] [address] 03/25/2025 10:20 AM CDT Virtual Visit [facility] [place] [address] [place] [address] [address] [place] [address] [place] [address] [place] [address] 04/04/2025 12:00 PM PEDIATRICIAN Office Visit [facility] [address] [phone] Sugey Mccoy APRN [address] 013104 05/05/2025 9:00 AM PEDIATRICIAN Office Visit [facility] [address]rd [place] [address] Jadon Floyd MD [address] [place] [address] 313825 05/30/2025 10:20 AM PEDIATRICIAN Appointment [facility] [address] [place] [address] Carlos Joyner MD [address] [place] [address] 105055 05/31/2025 2:00 PM PEDIATRICIAN Virtual Visit [facility] [address] 4th [place] [address] Carlos Joyner MD [address] [place] [address] 277095 07/25/2025 11:00 AM PEDIATRICIAN Office Visit [facility] [address] [place] [address] [place] [address] [place], [place] [phone] documented as of this encounter Visit Diagnoses Not on filedocumented in this encounter Care Teams Hot Sealing Machine Operator Relationship Specialty Start [place] [address] [place], [place] [phone] PCP - General 03/05/23 Carlos Joyner MD [address] [place] [address] 91426 Urology 12/09/19 Jadon Murray MD [facility] 2530 [facility] 550 [place] [address] Referring Physician Pediatric Surgery 12/09/19 Maru Villagomez, RN Registered Nurse 12/10/19 Ang Slade MD 420 [facility] 394 [place], [place] 367435 MD Urology 04/24/20 Carlos Joyner MD [address] [place] [address] 84855455 Assigned Surgical Provider 12/24/20 Ang Slade MD 420 [facility] 394 [place], [place] 969675 MD Urology 12/18/22 Lakshmi Wilhelm PA-C [address] [place] [address] 757855 Physician Director Of Sustainability Urology 02/03/23 [place] [address] [place] [address] Assigned PCP 02/06/23 Alissa Perez PA-C [address] [place] [address] 890635 Physician Director Of Sustainability Surgery 09/04/23 Lakshmi Wilhelm PA-C [address] [place] [address] 161835 Physician Director Of Sustainability Urology 09/16/23 Aidee Valero PA-C [address] [place] [address] 06016 Assigned Musculoskeletal Provider 04/17/24 02/14/25 Carlos Joyner MD [address] [place] [address]991 Urology 01/26/25 Jadon Floyd MD 9 [place] [address] Physician Physical Medicine and Rehabilitation 01/31/25 [place] [address] [place] [address] Assigned Musculoskeletal Provider 02/15/25 Tanisha Marlow 4120 [facility] [address] 03/30/24 documented as of this encounter
--- OUTSIDE RECORDS SUMMARY | 2025-03-12 19:29 | XMS_ITS | Encounter Summary ---
Author Organization [place] Address [address] [place] [address] 61557 Care Team Providers Care Postie Name Role Phone Carlos Joyner MD Unavailable +[phone] Jadon Murray MD Unavailable +[phone] Maru Villagomez RN Unavailable Unavailable Ang Slade MD Unavailable +[phone] Carlos Joyner MD Unavailable +[phone] Ang Slade MD Unavailable +[phone] Lakshmi Wilhelm-C Unavailable +[phone] Heladio Willoughby MD Primary Care Provider [phone] Heladio Willoughby MD Unavailable Alissa Perez PA-C Unavailable [phone] Lakshmi Wilhelm-C Unavailable +[phone] Aidee Valero PA-C Unavailable +[phone] Carlos Joyner MD Unavailable +[phone] Jadon Floyd MD Unavailable +[phone] Cayden Bejarano MD Unavailable Reason for Visit * Reason Onset Date Comments Forms 02/06/2024 [facility] Education Cooperative - Medication Authorization Form Encounter Details Date Type Department Care Team (Late st Contact Info) Description 02/06/2024 [facility] [address] [place] [address] [place] [address] [place] [address] Forms ([facility] Education Gravity Flow Irrigator... Social History Tobacco Use Types Packs/Day Years [...] Form Who is the form from? [facility] (if other please explain) Where did/will the form come from? form was sent via [employer] When is form/letter needed by: RUPA How would you like the form/letter returned: MyChart Printed forms and placed in provider's basket for review and signature Kasia Gutierrez Lead Egg [facility] documented in this encounter Plan of Treatment Upcoming Encounters Date Type Department Care Team (Late st Contact Info) Description 03/23/2025 12:45 PM CDT Appointment [facility] [address] [facility] [address] [place] [address] [place] [address] [address] [place] [address] 03/23/2025 1:30 PM CDT Hospital Encounter [facility] [address] [place] [address] [place] [address] [address] [place] [address] 03/25/2025 10:20 AM CDT Virtual Visit [facility] [place] [address] [place] [address] [address] [place] [address] [place] [address] [address] [place] [address] 04/04/2025 12:00 PM MAIL PROCESSING ASSOCIATE Office Visit [facility] [address] [address] Sugey Mccoy, NESTOR [address] 212744 05/05/2025 9:00 AM MAIL PROCESSING ASSOCIATE Office Visit [facility] [address] [place] [address] Jadon Floyd MD [address] [place] [address] 170655 05/30/2025 10:20 AM MAIL PROCESSING ASSOCIATE Appointment [facility] [address] [place] [address] Carlos Joyner MD [address] [place] [address] 896785 05/31/2025 2:00 PM MAIL PROCESSING ASSOCIATE Virtual Visit [facility] Clinic [address] [phone] Carlos Joyner MD [address] [place] [address] 373775 07/25/2025 11:00 AM MAIL PROCESSING ASSOCIATE Office [facility] [address] [place] [address] [place] [address] [place], [place] [phone] documented as of this encounter Visit Diagnoses Not on filedocumented in this encounter Care Teams Postie Relationship Specialty Start [place] [address] [place], [place] [phone] PCP - General 03/05/23 Carlos Joyner MD [address] [place] [address] 513855 Urology 12/09/19 Jadon Murray MD [facility] [address] [facility] 550 [place] [address] Referring Physician Pediatric Surgery 12/09/19 Maru Villagomez, RN Registered Nurse 12/10/19 Ang Slade MD 420 [facility] 394 [place], [place] 075675 MD Urology 04/24/20 Carlos Joyner MD [address] [place] [address] 727815 Assigned Surgical Provider 12/24/20 Ang Slade MD 420 [facility] 394 [place], [place] 155955 MD Urology 12/18/22 Lakshmi Wilhelm PA-C [address] [place] [address] 885795 Physician Police Communications Operator Urology 02/03/23 [place] [address] [place] [address] Assigned PCP 02/06/23 Alissa Perez PA-C [address] [place] [address] 949625 Physician Police Communications Operator Surgery 09/04/23 Lakshmi Wilhelm PA-C [address] [place] [address] 29181 Physician Police Communications Operator Urology 09/16/23 Aidee Valero PA-C 9 [place] [address] Assigned Musculoskeletal Provider 04/17/24 02/14/25 Carlos Joyner MD [address] [place] [address] Urology 01/26/25 Jadon Floyd MD [address] [place] [address]871 Physician Physical Medicine and Rehabilitation 01/31/25 [place] [address] [place] [address] Assigned Musculoskeletal Provider 02/15/25 Tanisha Marlow [address] [place] [address] 03/30/24 documented as of this encounter
--- OUTSIDE RECORDS SUMMARY | 2025-03-12 19:29 | XMS_ITS | Encounter Summary ---
Author Organization [place] Address [address] [place] [address] 6[address] Care Team Providers Care Rn Vascular Name Role Phone Carlos Joyner MD Unavailable [phone] Jadon Murray MD Unavailable +[phone] Maru Villagomez RN Unavailable Unavailable Ang Slade MD Unavailable +[phone] Carlos Joyner MD Unavailable [phone] Ang Slade MD Unavailable +[phone] Lakshmi Wilhelm-C Unavailable +[phone] Heladio Willoughby MD Primary Care Provider [phone] Heladio Willoughby MD Unavailable Alissa Perez PA-C Unavailable [phone] Lakshmi Wilhelm-C Unavailable +[phone] Aidee Valero PA-C Unavailable +[phone] Carlos Joyner MD Unavailable [phone] Reason for Visit * Reason Onset Date Comments Symptoms 12/06/2024 Encounter Details Date Type Department Care Team (Late st Contact Info) Description 12/06/2024 Telephone [facility] Clinic [address]th [place] [address] Carlos Joyner MD [address] [place] [address] 44621 Symptoms Social History Tobacco Use Types Packs/Day [...] than three times a week 07/16/2024 Attends [employer] Not on file 07/16 Active Member [...] Info) Description 03/23/2025 12:45 PM CDT Appointment [facility] [address] [facility] [address] [place] [address] [place] [address] [place] [address] 03/23/2025 1:30 PM CDT Hospital Encounter [facility] 25007 [facility] [address] [place] [address] [place] [address] [place] [address] 03/25/2025 10:20 AM CDT Virtual Visit [facility] Sports Medicine [facility] [address]34 [facility] [address] [place] [address] [place] [address] [place] [address] 04/04/2025 12:00 PM BUILDING PERFORMANCE CONSULTANT Office Visit [facility] Sleep [address] [phone] Sugey Mccoy, MELLOWING MACHINE OPERATOR [address] 665864 05/05/2025 9:00 AM BUILDING PERFORMANCE CONSULTANT Office Visit [facility] Physical Medicine and Rehabilitation Clinic [address] [phone] Jadon Floyd MD [address] [place] [address] 946135 05/30/2025 10:20 AM BUILDING PERFORMANCE CONSULTANT Appointment [facility] Imaging [address]855 [facility] [address] [place] [address] Carlos Joyner MD [address] [place] [address] 089645 05/31/2025 2:00 PM BUILDING PERFORMANCE CONSULTANT Virtual Visit [facility] [address] [phone] Carlos Joyner MD 909 [place], [place] 098875 07/25/2025 11:00 AM BUILDING PERFORMANCE CONSULTANT Office Visit [facility] [address] [place] [address] [place] [address] [facility] [place], [place] [phone] documented as of this encounter Visit Diagnoses Not on filedocumented in this encounter Care Teams Rn Vascular Relationship Specialty Start [place] [address] [address] [place], [place] 4557468 PCP - General 03/05/23 Carlos Joyner MD [address] [place] [address] 12952 Urology 12/09/19 Jadon Murray MD [facility] [address] [address] Referring Physician Pediatric Surgery 12/09/19 Maru Villagomez, OTILIO Registered Nurse 12/10/19 Ang Slade MD [address] [place] [address] Urology 04/24/20 Carlos Joyner MD [address] [place] [address] 98971 Assigned Surgical Provider 12/24/20 Ang Slade MD [address] [address] Urology 12/18/22 Lakshmi Wilhelm PA-C [address] [place] [address]24 Physician Dry House Worker Urology 02/03/23 [place] [address] [place] [address] Assigned PCP 02/06/23 Alissa Perez PA-C [address] [place] [address]1400 Physician Dry House Worker Surgery 09/04/23 Lakshmi Wilhelm PA-C [address] [place] [address] 73649 Physician Dry House Worker Urology 09/16/23 Aidee Valero PA-C [address] [place] [address] 16304 Assigned Musculoskeletal Provider 04/17/24 02/14/25 Carlos Joyner MD [address] [place] [address] 60997 Urology 01/26/25 Tanisha Marlow 4120 [facility] [address] 03/30/24 documented as of this encounter
--- OUTSIDE RECORDS SUMMARY | 2025-03-12 19:29 | XMS_ITS | Encounter Summary ---
Author Organization [place] Address [address] [place] [address] Care Team Providers Care Commissary Manager Name Role Phone Carlos Joyner MD Unavailable + [phone] Jadon Murray MD Unavailable +[phone] Maru Villagomez RN Unavailable Unavailable Ang Slade MD Unavailable +[phone] Carlos Joyner MD Unavailable +[phone] Ang Slade MD Unavailable +[phone] Lakshmi WilhelmC Unavailable +[phone] Heladio Willoughby MD Primary Care Provider [phone] Heladio Willoughby MD Unavailable Alissa Perez-Juan A Unavailable [phone] Lakshmi Wilhelm PA-C Unavailable +[phone] Carlos Joyner MD Unavailable +[phone] Jadon Floyd MD Unavailable [phone] Cayden Bejarano MD Unavailable Encounter Details Date Type Department Care Team (Late st Contact Info) Description 02/25/2025 Results Follow-Up [facility] Urology Clinic [address] 4th [place] [address] Rosita Velasco, RN Dx: Recurrent [...] PM CDT Appointment [facility] Imaging [address] [facility] [address] [place] [address] Cayden Bejarano MD [address] [place], [place] [address] [place] [address] 03/23/2025 1:30 PM CDT Hospital Encounter [facility] [address] [facility] [address] [place] [address] [place] [address] [address] [place] [address] 03/25/2025 10:20 AM CDT Virtual Visit [facility] [place] [address] [place] [address] [place] [address] [place] [address] [place], [place] [address]A[address] [place] [address] 04/04/2025 12:00 PM RADIOLOGY SPECIALIST Office Visit [facility] Sleep Center [place] [address] [facility] [place] [address] Sugey Mccoy APRN [facility] [address] [place] [address] [address] [place] [address] 05/05/2025 9:00 AM RADIOLOGY SPECIALIST Office Visit [facility] Physical Medicine and Rehabilitation Clinic [address]rd [place] [address] Jadon Floyd MD [address] [place] [address] 567455 05/30/2025 10:20 AM RADIOLOGY SPECIALIST Appointment [facility] Imaging [address] [facility] [address] [place] [address] Carlos Joyner MD [address] [place] [address] 551755 05/31/2025 2:00 PM RADIOLOGY SPECIALIST Virtual Visit [facility] Urology Clinic [address]th [place] [phone] Carlos Joyner MD [address] [place] [address] 606415 07/25/2025 11:00 AM RADIOLOGY SPECIALIST Office Visit [facility] [address] [place] [address] [place] [address] [place] [address] documented as of this encounter Visit Diagnoses Diagnosis Recurrent UTI- Primary Urinary tract infection, site not specified documented in this encounter Care Teams Commissary Manager Relationship Specialty Start [place] [address] [place] [address] PCP - General 03/05/23 Carlos Joyner MD [address] [place] [address] 559845 Urology 12/09/19 Jadon Murray MD [facility] [address] [phone] Referring Physician Pediatric Surgery 12/09/19 Maru Villagomez, OTILIO Registered Nurse 12/10/19 Ang Slade MD [address] [place] [address] 18909 Urology 04/24/20 Carlos Joyner MD [address] [place] [address] 9[address]39 Assigned Surgical Provider 12/24/20 Ang Slade MD [address] [place] [address] 89312 Urology 12/18/22 Lakshmi Wilhelm PA-C [address] [place] [address] 22899 Physician Neonatal Social Worker Urology 02/03/23 [place] [address] [place], [place] 3589368 Assigned PCP 02/06/23 Alissa Perez PA-C [address] [place] [address] 337995 Physician Neonatal Social Worker Surgery 09/04/23 Lakshmi Wilhelm PA-C [address] [place] [address] 13583 Physician Neonatal Social Worker Urology 09/16/23 Carlos Joyner MD [address] [place] [address] 732515 Urology 01/26/25 Jadon Floyd MD [address] [place] [address] 361915 Physician Physical Medicine and Rehabilitation 01/31/25 [place] [address] [place] [address] Assigned Musculoskeletal Provider 02/15/25 Tanisha Marlow [address] [place] [address] 03/30/24 documented as of this encounter
--- OUTSIDE RECORDS SUMMARY | 2025-03-12 19:29 | XMS_ITS | Encounter Summary ---
Author Organization [place] Address [address] [place] [address] 6[address] Care Team Providers Care Machine Gunner Name Role Phone Carlos Joyner MD Unavailable + [phone] Jadon Murray MD Unavailable +[phone] Maru Villagomez RN Unavailable Unavailable Ang Slade MD Unavailable +[phone] Carlos Joyner MD Unavailable +[phone] Ang Slade MD Unavailable [phone] Lakshmi Wilhelm-C Unavailable +[phone] Heladio Willoughby MD Primary Care Provider [phone] Heladio Willoughby MD Unavailable Alissa Perez PA-C Unavailable [phone] PaLakshmi morales-C Unavailable +[phone] Aidee Valero PA-C Unavailable [phone] Carlos Joyner MD Unavailable +[phone] Jadon Floyd MD Unavailable [phone] Encounter Details Date Type Department Care [...] than three times a week 07/16/2024 Attends [employer] Services Not on file 07/16 Active Member [...] Info) Description 03/23/2025 12:45 PM CDT Appointment [facility] [address] [facility] [address] [place] [address] [place] [address] [place] [address] [address] [place] [address] 03/23/2025 1:30 PM CDT Hospital Encounter [facility] [address] [facility] [address] [place] [address] [place] [address] [facility] [address] [place] [address] 03/25/2025 10:20 AM CDT Virtual Visit [facility] Sports Medicine Clinic [place] [address] [facility] [address] [place] [address] [place] [address] [facility] [address] [place] [address] 04/04/2025 12:00 PM NEIGHBORHOOD CONSERVATION OFFICER Office Visit [facility] Sleep Center [address] [phone] Sugey Mccoy, SENIOR ACCOUNTING ASSOCIATE PLATE GLASS INSTALLER HELPER [address] [place] [address] 05/05/2025 9:00 AM NEIGHBORHOOD CONSERVATION OFFICER Office Visit [facility] Physical Medicine and Rehabilitation Clinic [address]rd [place] [address] Jadon Floyd MD [address] [place] [address] 796395 05/30/2025 10:20 AM NEIGHBORHOOD CONSERVATION OFFICER Appointment [facility] [address] [place] [address] Carlos Joyner MD [address] [place] [address] 994715 05/31/2025 2:00 PM NEIGHBORHOOD CONSERVATION OFFICER Virtual Visit [facility] Urology Clinic [address]th [place] [address] Carlos Joyner MD [address] [place] [address] 078515 07/25/2025 11:00 AM NEIGHBORHOOD CONSERVATION OFFICER Office Visit [facility] [address] [place] [address] [place] [address] [place], [place] 2369668 documented as of this encounter Visit Diagnoses Not on filedocumented in this encounter Care Teams Machine Gunner Relationship Specialty Start [place] [address] [place] [address] PCP - General 03/05/23 Carlos Joyner MD [address] [place] [address] 024255 Urology 12/09/19 Jadon Murray MD [facility] 2530 [facility] 550 [place] [address] Referring Physician Pediatric Surgery 12/09/19 Maru Villagomez, RN Registered Nurse 12/10/19 Ang Slade MD [address] [place] [address] 394 [place] [address] Urology 04/24/20 Carlos Joyner MD [address] [place] [address] 866535 Assigned Surgical Provider 12/24/20 Ang Slade MD [address] [place] [address] 394 [place] [address] Urology 12/18/22 Lakshmi Wilhelm PA-C [address] [place] [address] 916065 Physician Heater Furnace Urology 02/03/23 [place] [address] [place] [address] Assigned PCP 02/06/23 Alissa Perez PA-C [address] [place] [address] 226245 Physician Heater Furnace Surgery 09/04/23 Lakshmi Wilhelm PA-C [address] [place] [address] 627805 Physician Heater Furnace Urology 09/16/23 Aidee Valero PA-C [address] [place] [address] 583015 Assigned Musculoskeletal Provider 04/17/24 02/14/25 Carlos Joyner MD [address] [place] [address] 129925 Urology 01/26/25 Jadon Floyd MD [address] [place] [address] 060905 Physician Physical Medicine and Rehabilitation 01/31/25 Tanisha Marlow 4120 [facility] [address] 03/30/24 documented as of this encounter
--- OUTSIDE RECORDS SUMMARY | 2025-03-12 19:29 | XMS_ITS | Encounter Summary ---
Author Organization [place] Address [address] [place] [address] Care Team Providers Care Senior Laboratory Technician Name Role Phone Carlos Joyner MD Unavailable [phone] Jadon Murray MD Unavailable +[phone] Maru Villagomez RN Unavailable Unavailable Ang Slade MD Unavailable +[phone] Carlos Joyner MD Unavailable +[phone] Ang Slade MD Unavailable +[phone] Lakshmi WilhelmC Unavailable +[phone] Heladio Willoughby MD Primary Care Provider [phone] Heladio Willoughby MD Unavailable Alissa Perez PA-C Unavailable [phone] Lakshmi Wilhelm PA-C Unavailable +[phone] Aidee Valero-C Unavailable +[phone] Carlos Joyner MD Unavailable [phone] Encounter Details Date Type Department Care Team [...] Answer Date Recorded PHQ-2 Score 0 09/13/2024 [facility] [...] Info) Description 03/23/2025 12:45 PM CDT Appointment [facility] Imaging [address] [facility] [address] [place] [address] [place] [address] [place] [address] 03/23/2025 1:30 PM CDT Hospital Encounter [facility] [address] [facility] [address] [place] [address] Cayden Bejarano MD [address] [place] [address] [address] [place] [address] 03/25/2025 10:20 AM CDT Virtual Visit [facility] Medicine [facility] [place] [address] [place] [address] [address] [place] [address] [place] [address] [place] [address] 04/04/2025 12:00 PM SOIL ENGINEER Office Visit [facility] Sleep Center [address] [address] Sugey Mccoy, NEWS ASSISTANT [address] [address] 05/05/2025 9:00 AM SOIL ENGINEER Office Visit [facility] Physical Medicine and Rehabilitation Clinic [address] [place] [address] Jadon Floyd MD [address] [place] [address] 05/30/2025 10:20 AM SOIL ENGINEER Appointment [facility] Imaging [address] [place] [address] [place] [address] Carlos Joyner MD [address] [place] [address] 667495 05/31/2025 2:00 PM SOIL ENGINEER Virtual Visit [facility] Urology Clinic [address] [place] [address] Carlos Joyner MD [address] [place] [address] 980685 07/25/2025 11:00 AM SOIL ENGINEER Office Visit [facility] [address] [place] [address] [place] [address] [place], [place] 0538368 documented as of this encounter Visit Diagnoses Not on filedocumented in this encounter Care Teams Senior Laboratory Technician Relationship Specialty Start [place] [address] [place] [address] PCP - General 03/05/23 Carlos Joyner MD [address] [place] [address] 351315 Urology 12/09/19 Jadon Murray MD [facility] 2530 [facility] 550 [place] [address] Referring Physician Pediatric Surgery 12/09/19 Maru Villagomez, RN Registered Nurse 12/10/19 Ang Slade MD [address] [place] [address] 394 [place], [place] 538965 Urology 04/24/20 Carlos Joyner MD [address] [place] [address] [id number] Assigned Surgical Provider 12/24/20 Ang Slade MD [address] [place] [address] 394 [place], [place] [phone] Urology 12/18/22 Lakshmi Wilhelm PA-C [address] [place] [address] 11137455 Physician Criminal Intelligence Analyst Urology 02/03/23 [place] [address] [place] [address] Assigned PCP 02/06/23 Alissa Perez PA-C [address] [place] [address] 343805 Physician Criminal Intelligence Analyst Surgery 09/04/23 Lakshmi Wilhelm PA-C [address] [place] [address] [phone] Physician Criminal Intelligence Analyst Urology 09/16/23 Aidee Valero PA-C 909 [place], [place] 030325 Assigned Musculoskeletal Provider 04/17/24 02/14/25 Carlos Joyner MD 909 [place], [place] 472105 Urology 01/26/25 Tanisha Marlow 4120 [facility] [address] 03/30/24 documented as of this encounter
--- OUTSIDE RECORDS SUMMARY | 2025-03-12 19:29 | XMS_ITS | Encounter Summary ---
Author Organization [place] Address [address] [place] [address] Care Team Providers Care Deaf/Hard Of Hearing Specialist Name Role Phone Carlos Joyner MD Unavailable +[phone] Jadon Murray MD Unavailable [phone] Maru Villagomez RN Unavailable Unavailable Ang Slade MD Unavailable +[phone] Carlos Joyner MD Unavailable +[phone] Ang Slade MD Unavailable +[phone] Lakshmi Wilhelm-C Unavailable +[phone] Heladio Willoughby MD Primary Care Provider [phone] Heladio Willoughby MD Unavailable Alissa Perez PA-C Unavailable [phone] Lakshmi Wilhelm-C Unavailable +[phone] Aidee Valero PA-C Unavailable +[phone] Carlos Joyner MD Unavailable +[phone] Jadon Floyd MD Unavailable +[phone] Cayden Bejarnao MD Unavailable Encounter Details Date Type Department Care Team (Late st Contact Info) Description 02/13/2024 [facility] Urology [place] 647309 [facility] 4th [place] [address] Carlos Joyner MD 909 [place] [address] Social History Tobacco Use Types Packs/Day Years [...] 12:45 PM CDT Appointment [facility] [address] [facility] [address] [place] [address] [place] [address] [place] [address] 03/23/2025 1:30 PM CDT Hospital Encounter [facility] [address] [facility] [address] [place] [address] [place] [address] [place] [address] 03/25/2025 10:20 AM CDT Virtual Visit [facility] [address] [facility] [address] [place] [address] [place] [address] [place] [address] 04/04/2025 12:00 PM PROPOSAL REP Office Visit [facility] Sleep [address] [phone] Sugey Mccoy, LEGAL PROJECT MANAGER [address] 395814 05/05/2025 9:00 AM PROPOSAL REP Office Visit [facility] [address] [address] Jadon Floyd MD [address] [place] [address] 835325 05/30/2025 10:20 AM PROPOSAL REP Appointment [facility] [address] [facility] [address] [place] [address] Carlos Joyner MD [address] [place] [address] 719275 05/31/2025 2:00 PM PROPOSAL REP Virtual Visit [facility]rology Clinic [address] [address] Carlos Joyner MD 909 [place], [place] 624025 07/25/2025 11:00 AM PROPOSAL REP Office Visit [facility] [address] [place] [address] [place] [address] [address] [place], [place] 2121368 documented as of this encounter Visit Diagnoses Not on filedocumented in this encounter Care Teams Deaf/Hard Of Hearing Specialist Relationship Specialty Start [place] [address] [address] [place], [place] [phone] PCP - General 03/05/23 Carlos Joyner MD [address] [place] [address] Urology 12/09/19 Jadon Murray MD [facility] [address] [address] Referring Physician Pediatric Surgery 12/09/19 Maru Villagomez RN Registered Nurse 12/10/19 Ang Slade MD 420 [facility] 394 [place] [address] Urology 04/24/20 Carlos Joyner MD [address] [place] [address] 34923 Assigned Surgical Provider 12/24/20 Ang Slade MD [address] [place] [address] Urology 12/18/22 Lakshmi Wilhelm PA-C [address] [place] [address] 03654 Physician Engineering Illustrator Urology 02/03/23 [place] [address] [place] [address] Assigned PCP 02/06/23 Alissa Perez PA-C [address] [place] [address] 31743 Physician Engineering Illustrator Surgery 09/04/23 Lakshmi Wilhelm PA-C [address] [place] [address] 69861 Physician Engineering Illustrator Urology 09/16/23 Aidee Valero PA-C [address] [place] [address] 22940 Assigned Musculoskeletal Provider 04/17/24 02/14/25 Carlos Joyner MD [address] [place] [address] Urology 01/26/25 Jadon Floyd MD [address] [place] [address] 030705 Physician Physical Medicine and Rehabilitation 01/31/25 [place] [address] [place] [address] Assigned Musculoskeletal Provider 02/15/25 Tanisha Marlow 4120 [facility] [address] 03/30/24 documented as of this encounter
--- OUTSIDE RECORDS SUMMARY | 2025-03-12 19:29 | XMS_ITS | Encounter Summary ---
Author Organization [place] Address [address] [place] [address]71 Care Team Providers Care Director Perioperative Name Role Phone Carlos Joyner MD Unavailable +[phone] Jadon Murray MD Unavailable +[phone] Maru Villagomez RN Unavailable Unavailable Ang Slade MD Unavailable +[phone] Carlos Joyner MD Unavailable +[phone] Ang Slade MD Unavailable +[phone] Lakshmi Wilhelm-C Unavailable +[phone] Heladio Willoughby MD Primary Care Provider +[phone] Heladio Willoughby MD Unavailable Alissa Perez PA-C Unavailable +[phone] Lakshmi Wilhelm PA-C Unavailable +[phone] Aidee Valero PA-C Unavailable +[phone] Carlos Joyner MD Unavailable +[phone] Jadon Floyd MD Unavailable +[phone] Cayden Bejarano MD Unavailable Encounter Details Date Type Department Care Team (Late st Contact Info) Description 01/12/2025 Results Follow-Up [facility] [address] [place] [phone] Sugey Mccoy, MITER GRINDER OPERATOR REFRIGERATING ENGINEER [address] [place] [address] Subj: Sleep study results Social History Tobacco [...] 07/16/2024 Attends [employer] Not on file 07/16 Active Member [...] 12:45 PM CDT Appointment [facility] [address] [facility] [address] [place] [address] [place] [address] [facility] [address] [place] [address] 03/23/2025 1:30 PM CDT Hospital Encounter [facility] [address] [place] [address] [place] [address] [place] [address] 03/25/2025 10:20 AM CDT Virtual Visit [facility] [place] [address] [place] [address] [place] [address] [place] [address] 04/04/2025 12:00 PM NET MENDER Office Visit [facility] [place] [address] [place] [address] Sugey Mccoy, MITER GRINDER OPERATOR [facility] [address] [facility] [address] [place], [place] 301494 05/05/2025 9:00 AM NET MENDER Office Visit [facility] [address] 3rd [place] [phone] Jadon Floyd MD [address] [place] [address] 681905 05/30/2025 10:20 AM NET MENDER Appointment [facility] [address] [facility] [address] [place] [address] Carlos Joyner MD [address] [place] [address] 382025 05/31/2025 2:00 PM NET MENDER Virtual Visit [facility] [address] [place] [phone] Carlos Joyner MD [address] [place] [address] 695945 07/25/2025 11:00 AM NET MENDER Office Visit [place] [phone] [place] [address] [place] [address] [place] [address] documented as of this encounter Visit Diagnoses Not on filedocumented in this encounter Care Teams Director Perioperative Relationship Specialty Start [place] [address] [place] [address] PCP - General 03/05/23 Carlos Joyner MD [address] [place] [address] 703045 Urology 12/09/19 Jadon Murray MD [facility] [address] [phone] Referring Physician Pediatric Surgery 12/09/19 Maru Villagomez, RN Registered Nurse 12/10/19 Ang Slade MD [address] [place] [address] [phone] Urology 04/24/20 Carlos Joyner MD [address] [place] [address] 800275 Assigned Surgical Provider 12/24/20 Ang Slade MD [address] [place] [address] 64962 Urology 12/18/22 Lakshmi Wilhelm PA-C [address] [place] [address] 353985 Physician Ux Specialist Urology 02/03/23 [place] [address] [place] [address] Assigned PCP 02/06/23 Alissa Perez PA-C [address] [place] [address] Physician Ux Specialist Surgery 09/04/23 Lakshmi Wilhelm PA-C [address] [place] [address] Physician Ux Specialist Urology 09/16/23 Aidee Valero PA-C [address] [place] [address] 10206 Assigned Musculoskeletal Provider 04/17/24 02/14/25 Carlos Joyner MD [address] [place] [address] 13085 Urology 01/26/25 Jadon Floyd MD [address] [place] [address] Physician Physical Medicine and Rehabilitation 01/31/25 [place] [address] [place] [address] Assigned Musculoskeletal Provider 02/15/25 Tanisha Marlow 4120 [facility] [address] 03/30/24 documented as of this encounter
--- OUTSIDE RECORDS SUMMARY | 2025-03-12 19:30 | XMS_ITS | Encounter Summary ---
Author Organization [place] Address [address] [place] [address] Care Team Providers Care Senior Financial Accountant Name Role Phone Carlos Joyner MD Unavailable + [phone] Jadon Murray MD Unavailable +[phone] Maru Villagomez RN Unavailable Unavailable Ignacia Duran MD Primary Care Provider +[phone] Carlos Joyner MD Unavailable + 56401 Ang Slade MD Unavailable +[phone] Ang Slade MD Unavailable +[phone] Carlos Joyner MD Unavailable + 56407 Annalise Orta PA-C Unavailable +[phone] Ang Slade MD Unavailable +[phone] Lakshmi Wilhelm-C Unavailable +[phone] Heladio Willoughby MD Primary Care Provider +[phone] Heladio Willoughby MD Unavailable Alissa Perez PA-C Unavailable +[phone] Lakshmi Wilhelm-C Unavailable +[phone] Aiede Valero PA-C Unavailable +[phone] Carlos Joyner MD Unavailable +[phone] Jadon Floyd MD Unavailable +[phone] Cayden Bejarano MD Unavailable Reason for Visit * Reason Comments Orders Encounter Details Date Type Department Care Team (Late st Contact Info) Description 02/02/2020 Orders Only [facility] [address] [facility] 4th [place] [phone] Maru Villagomez RN Social History Tobacco Use [...] Info) Description 03/23/2025 12:45 PM CDT Appointment [facility] [address] [facility] [address] [place] [address] Cayden Bejarano [place] [address] [place] [address] 03/23/2025 1:30 PM CDT Hospital Encounter [facility] [address] [place] [address] [place] [address] [place] [address] 03/25/2025 10:20 AM CDT Virtual Visit [facility] [place] [address] [place] [address] [place] [address] [place] [address] 04/04/2025 12:00 PM AUTO DESIGN CHECKER Office Visit [facility] [place] [address] [place] [phone] Sugey Mccoy APRN HIGHWAY PAINTER HELPER [address] [address] [place], [place] [address] 05/05/2025 9:00 AM AUTO DESIGN CHECKER Office Visit [facility] [address]rd [place] [phone] Jadon Floyd MD [address] [place] [address] 787895 05/30/2025 10:20 AM AUTO DESIGN CHECKER Appointment [facility] [address] [facility] [address] [place] [address] Carlos Joyner MD [address] [place] [address] 753985 05/31/2025 2:00 PM AUTO DESIGN CHECKER Virtual Visit [facility] [address]th [place] [address] Carlos Joyner MD [address] [place] [address] [phone] 07/25/2025 11:00 AM AUTO DESIGN CHECKER Office Visit [facility] [address] [place] [address] [place] [address] [place] [address] documented as of this encounter Visit Diagnoses Not on filedocumented in this encounter Additional Health Concerns Infection Onset Date Last Indicated Resolved Time MRSA Comment:Added from external infection. Pt has had Staph infections but never MRSA from Care everywhere chart review. Removing MRSA 9.14.23 06/17/2019 02/06/2023 9:41 AM C DT documented as of this encounter Care Teams Senior Financial Accountant Relationship Specialty Start Date End Date Ignacia Duran MD PCP - General Pediatrics 01/20/20 03/04/23 [place] [address] [place] [address] PCP - General 03/05/23 Carlos Joyner MD [address] [place] [address] 60360 Urology 12/09/19 Jadon Murray MD [facility] [address] [phone] Referring Physician Pediatric Surgery 12/09/19 Maru Villagomez, OTILIO Registered Nurse 12/10/19 Carlos Joyner MD [address] [place] [address] 266545 Assigned Surgical Provider 03/17/20 08/12/20 Ang Slade MD [address] [place] [address] 401505 Urology 04/24/20 Ang Slade MD [address] [address] Assigned Surgical Provider 08/13/20 12/23/20 Carlos Joyner MD [address] [place] [address] 13362 Assigned Surgical Provider 12/24/20 Annalise Orta PA-C 5200 [place] [address] Assigned Cancer Care Provider 05/13/21 11/01/22 Ang Slade MD [address] [place] [address] 482415 Urology 12/18/22 Lakshmi Wilhelm PA-C [address] [place] [address] 833305 Physician Telegraphic Typewriter Operator Chief Urology 02/03/23 [place] [address] [place] [address] Assigned PCP 02/06/23 Alissa Perez PA-C [address] [place] [address] 748725 Physician Telegraphic Typewriter Operator Chief Surgery 09/04/23 Lakshmi Wilhelm PA-C [address] [place] [address] 64549 Physician Telegraphic Typewriter Operator Chief Urology 09/16/23 Aidee Valero PA-C [address] [place] [address] 352735 Assigned Musculoskeletal Provider 04/17/24 02/14/25 Carlos Joyner MD [address] [place] [address] 69292 Urology 01/26/25 Jadon Floyd MD 909 [place] [address] Physician Physical Medicine and Rehabilitation 01/31/25 [place] [address] [place] [address] Assigned Musculoskeletal Provider 02/15/25 Tanisha Marlow 4120 [facility] [address] 03/30/24 documented as of this encounter
--- OUTSIDE RECORDS SUMMARY | 2025-03-12 19:30 | XMS_ITS | Encounter Summary ---
Author Organization [place] Address [address] [place] [address] 8[address] Care Team Providers Care Assistant Project Manager Name Role Phone Carlos Joyner MD Unavailable +[phone] Jadon Murray MD Unavailable +[phone] Maru Villagomez RN Unavailable Unavailable Ang Slade MD Unavailable +[phone] Carlos Joyner MD Unavailable +[phone] Ang Slade MD Unavailable +[phone] Lakshmi Wilhelm-C Unavailable +[phone] Heladio Willoughby MD Primary Care Provider +[phone] Heladio Willoughby MD Unavailable Alissa Perez PA-C Unavailable [phone] Lakshmi Wilhelm-C Unavailable +[phone] Aidee Valero PA-C Unavailable +[phone] Carlos Joyner MD Unavailable +[phone] Jadon Floyd MD Unavailable +[phone] Cayden Bejarano MD Unavailable Encounter Details Date Type Department Care Team (Late st Contact Info) Description 05/05/2023 [facility] [place] [address] [facility] 4th [place] [address] Rosita Velasco, RN Social History [...] Info) Description 03/23/2025 12:45 PM CDT Appointment [facility] [address] [place] [address] [place] [address] [place] [address] 03/23/2025 1:30 PM CDT Hospital Encounter [facility] [address] [facility] [address] [place] [address] [place] [address] [place] [address] 03/25/2025 10:20 AM CDT Virtual Visit [facility] [place] [address] [place] [address] [place] [address] [place] [address] 04/04/2025 12:00 PM SENIOR TAX SPECIALIST Office Visit [facility] [address] [place] [phone] Sugey Mccoy, LITHOGRAPHIC PHOTOGRAPHER APPRENTICE [facility] [address] [place] [address] 106 [place] [address] 05/05/2025 9:00 AM SENIOR TAX SPECIALIST Office Visit [facility] Rehabilitation [facility] [address] [place] [phone] Jadon Floyd MD [address] [place] [address] 817805 05/30/2025 10:20 AM SENIOR TAX SPECIALIST Appointment [facility] [address] [place] [address] Carlos Joyner MD [address] [place] [address] 892585 05/31/2025 2:00 PM SENIOR TAX SPECIALIST Virtual Visit [facility] [address] [place] [address]00 Carlos Joyner MD [address] [place] [address] [phone] 07/25/2025 11:00 AM SENIOR TAX SPECIALIST Office Visit [facility] [place] [address] [phone] [place] [address] [address] [place] [phone] documented as of this encounter Visit Diagnoses Not on filedocumented in this encounter Care Teams Assistant Project Manager Relationship Specialty [place] [address] [address] [phone] PCP - General 03/05/23 Carlos Joyner MD [address] [place] [address] 17765 Urology 12/09/19 Jadon Murray MD [facility] 2530 [facility] 550 [place] [address] Referring Physician Pediatric Surgery 12/09/19 Maru Villagomez, RN Registered Nurse 12/10/19 Ang Slade MD [address] [place] [address] 49181 Urology 04/24/20 Carlos Joyner MD [address] [place] [address] 30813 Assigned Surgical Provider 12/24/20 Ang Slade MD [address] [address] Urology 12/18/22 Lakshmi Wilhelm PA-C [address] [place] [address] 85749 Physician Gambling Cashier Urology 02/03/23 [place] [address] [place] [address] Assigned PCP 02/06/23 Alissa Perez PA-C [address] [place] [address] 84659 Physician Gambling Cashier Surgery 09/04/23 Lakshmi Wilhelm PA-C [address] [place] [address] 47549 Physician Gambling Cashier Urology 09/16/23 Aidee Valero PA-C [address] [place] [address] 501475 Assigned Musculoskeletal Provider 04/17/24 02/14/25 Carlos Joyner MD [address] [place] [address] 635515 Urology 01/26/25 Jadon Floyd MD [address] [place] [address] 12771 Physician Physical Medicine and Rehabilitation 01/31/25 [place] [address] [place] [address] Assigned Musculoskeletal Provider 02/15/25 Tanisha Marlow 4120 [facility] [phone] 03/30/24 documented as of this encounter
--- OUTSIDE RECORDS SUMMARY | 2025-03-12 19:30 | XMS_ITS | Encounter Summary ---
Author Organization [place] Address [address] [place] [address] Care Team Providers Care Safety Sealer Name Role Phone Carlos Joyner MD Unavailable +[phone] Jadon Murray MD Unavailable +[phone] Maru Villagomez RN Unavailable Unavailable Ang Slade MD Unavailable +[phone] Carlos Joyner MD Unavailable +[phone] Ang Slade MD Unavailable +[phone] Lakshmi Wilhelm-C Unavailable +[phone] Heladio Willoughby MD Primary Care Provider +[phone] Heladio Willoughby MD Unavailable Alissa Peerz PA-C Unavailable [phone] Lakshmi Wilhelm-C Unavailable +[phone] Aidee Valero PA-C Unavailable +[phone] Carlos Joyner MD Unavailable +[phone] Jadon Floyd MD Unavailable +[phone] Cayden Bejarano MD Unavailable Encounter Details Date Type Department Care Team (Late st Contact Info) Description 04/08/2023 [facility] Clinic [place] 7[address]39 [facility] 4th [place] [address] Rosita Velasco, RN Social History [...] in an overnight fdc, or couch-surfing.) Yes 04/11/2023 Are you worried [...] PM CDT Appointment [facility] [address] [place] [address] [place] [address] [place] [address] 03/23/2025 1:30 PM CDT Hospital Encounter [facility] [address] [facility] [address] [place] [address] [place] [address] [place] [address] 03/25/2025 10:20 AM CDT Virtual Visit [facility] [place] [address] [place] [address] [place] [address] [place] [address] 04/04/2025 12:00 PM RECYCLE WORKER Office Visit [facility] [address] [place] [address] [phone] Sugey Mccoy, AUTOMOTIVE LIGHT MECHANIC [facility] [address] [place] [address] 106 [place] [address] 05/05/2025 9:00 AM RECYCLE WORKER Office Visit [facility] Rehabilitation [facility] [address]rd [place] [phone] Jadon Floyd MD [address] [place] [address] 000075 05/30/2025 10:20 AM RECYCLE WORKER Appointment [facility] [address] [place] [address] Carlos Joyner MD [address] [place] [address] 965005 05/31/2025 2:00 PM RECYCLE WORKER Virtual Visit [facility] Clinic [address] [place] [phone] Carlos Joyner MD [address] [place] [address] [phone] 07/25/2025 11:00 AM RECYCLE WORKER Office Visit [facility] [place] [address] [address] [phone] [place] [address] [address] [place] 1059368 documented as of this encounter Visit Diagnoses Not on filedocumented in this encounter Care Teams Safety Sealer Relationship Specialty [place] [address] [address] [phone] PCP - General 03/05/23 Carlos Joyner MD [address] [place] [address] 16516 Urology 12/09/19 Jadon Murray MD [facility] 2530 [facility] 550 [place] [address] Referring Physician Pediatric Surgery 12/09/19 Maru Villagomez, RN Registered Nurse 12/10/19 Ang Slade MD [address] [place] [address] 10907 Urology 04/24/20 Carlos Joyner MD [address] [place] [address] 50651 Assigned Surgical Provider 12/24/20 Ang Slade MD [address] [address] Urology 12/18/22 Lakshmi Wilhelm PA-C [address] [place] [address] 22628 Physician Cost And Risk Analysis Manager Urology 02/03/23 [place] [address] [place] [address] Assigned PCP 02/06/23 Alissa Perez PA-C [address] [place] [address] 32844 Physician Cost And Risk Analysis Manager Surgery 09/04/23 Lakshmi Wilhelm PA-C [address] [place] [address] 77532 Physician Cost And Risk Analysis Manager Urology 09/16/23 Aidee Valero PA-C [address] [place] [address] 282265 Assigned Musculoskeletal Provider 04/17/24 02/14/25 Carlos Joyner MD [address] [place] [address] 053785 Urology 01/26/25 Jadon Floyd MD [address] [place] [address] 48068 Physician Physical Medicine and Rehabilitation 01/31/25 [place] [address] [place] [address] Assigned Musculoskeletal Provider 02/15/25 Tanisha Marlow 4120 [facility] [phone] 03/30/24 documented as of this encounter
--- OUTSIDE RECORDS SUMMARY | 2025-03-12 19:30 | XMS_ITS | Encounter Summary ---
Author Organization [facility] Address [address] [place] [address] 41875 Care Team Providers Care Roller Print Tender Name Role Phone Carlos Joyner MD Unavailable + [phone] Jadon Murray MD Unavailable +[phone] Maru Villagomez RN Unavailable Unavailable Ang Slade MD Unavailable +[phone] Carlos oJyner MD Unavailable + [phone] Ang Slade MD Unavailable +[phone] Lakshmi Wilhelm-C Unavailable +[phone] Heladio Willoughby MD Primary Care Provider +[phone] Heladio Willoughby MD Unavailable Alissa Perez PA-C Unavailable [phone] Lakshmi Wilhelm-C Unavailable +- [phone] Aidee Valero PA-C Unavailable +[phone] Carlos Joyner MD Unavailable + [phone] Jadon Floyd MD Unavailable +[phone] Cayden Bejarano MD Unavailable Encounter Details Date Type Department Care Team (Late st Contact Info) Description 07/01/[address] [address] Joao Arceo MA Social History [...] Description 03/23/2025 12:45 PM CDT Appointment [facility] [address] [place] [address] [place] [address] [place] [address] 03/23/2025 1:30 PM CDT Hospital Encounter [facility] [address] [facility] [address] [place] [address] [place] [address] [place] [address] 03/25/2025 10:20 AM CDT Virtual Visit [facility] [place] [address] [place] [address] [place] [address] [place] [address] 04/04/2025 12:00 PM LOKIE ENGINEER Office Visit [facility] [address] [place] [phone] Sugey Mccoy, CLOTH FOLDER MACHINE [facility] [address] [place] [address] 106 [place] [address] 05/05/2025 9:00 AM LOKIE ENGINEER Office Visit [facility] Rehabilitation Clinic [address] [place] [phone] Jadon Floyd MD [address] [place] [address] 739185 05/30/2025 10:20 AM LOKIE ENGINEER Appointment [facility] [address] [place] [address] Carlos Joyner MD [address] [place] [address] 003735 05/31/2025 2:00 PM LOKIE ENGINEER Virtual Visit [facility] Clinic [address] [place] [phone] Carlos Joyner MD [address] [place] [address] 07/25/2025 11:00 AM LOKIE ENGINEER Office Visit [facility] [place] [address] [address] [phone] [place] [address] [address] [place] [phone] documented as of this encounter Visit Diagnoses Not on filedocumented in this encounter Care Teams Roller Print Tender Relationship Specialty [place] [address] [address] [phone] PCP - General 03/05/23 Carlos Joyner MD [address] [place] [address] 15365 Urology 12/09/19 Jadon Murray MD [facility] 2530 [facility] 550 [place] [address] Referring Physician Pediatric Surgery 12/09/19 Maru Villagomez, RN Registered Nurse 12/10/19 Ang Slade MD [address] [place] [address] 49223 Urology 04/24/20 Carlos Joyner MD [address] [place] [address] 16154 Assigned Surgical Provider 12/24/20 Ang Slade MD [address] [place] [address] 80321 Urology 12/18/22 Lakshmi Wilhelm PA-C [address] [place] [address] 47838 Physician Director Economic Urology 02/03/23 [place] [address] [place] [address] Assigned PCP 02/06/23 Alissa Perez PA-C [address] [place] [address] 31611 Physician Director Economic Surgery 09/04/23 Lakshmi Wilhelm PA-C [address] [place] [address] 24718 Physician Director Economic Urology 09/16/23 Aidee Valero PA-C [address] [place] [address] 194965 Assigned Musculoskeletal Provider 04/17/24 02/14/25 Carlos Joyner MD [address] [place] [address] 692875 Urology 01/26/25 Jadon Floyd MD [address] [place] [address] 97904 Physician Physical Medicine and Rehabilitation 01/31/25 [place] [address] [place] [address] Assigned Musculoskeletal Provider 02/15/25 Tanisha Marlow [facility] [address] 03/30/24 documented as of this encounter
--- OUTSIDE RECORDS SUMMARY | 2025-03-12 19:30 | XMS_ITS | Encounter Summary ---
Author Organization [place] Address [address] [place] [address] Care Team Providers Care Sap Crm Developer Name Role Phone Carlos Joyner MD Unavailable [phone] Jadon Murray MD Unavailable +[phone] Maru Villagomez RN Unavailable Unavailable Ang Slade MD Unavailable +[phone] Carlos Joyner MD Unavailable +[phone] Ang Slade MD Unavailable +[phone] Lakshmi Wilhelm-C Unavailable +[phone] Heladio Willoughby MD Primary Care Provider [phone] Heladio Willoughby MD Unavailable Alissa Perez PA-C Unavailable [phone] Lakshmi Wilhelm-C Unavailable +[phone] Aidee Valero PA-C Unavailable +[phone] Carlos Joyner MD Unavailable +[phone] Encounter Details Date Type Department Care Team (Late st Contact Info) Description 01/28/2025 [facility] Physical Medicine and Rehabilitation Clinic [address] 3rd [place] [address] Unknown, Doctor, Social History Tobacco [...] Answer Date Recorded PHQ-2 Score 0 09/13/2024 [facility] Luck of Occupat ional Health - Occupational Stress [...] CDT Left Voicemail (1st Attempt) and Sent LanternCRMhart (1st Attempt) for the patient to call back and schedule the following: Appointment type: New PM&R Provider: Dr. Floyd Return date: next available Specialty phone number: [phone] Additional appointment(s) needed: NA Additonal Notes: documented in this encounter Plan of Treatment Upcoming Encounters Date Type Department Care Team (Late st Contact Info) Description 03/23/2025 12:45 PM CDT Appointment [facility] [address] [place] [phone] [place] [address] [place] [address] 03/23/2025 1:30 PM CDT Hospital Encounter [facility] Imaging [address] [place] [address] [place] [address] [facility] [address] [place] [address] 03/25/2025 10:20 AM CDT Virtual Visit [facility] Sports Medicine [facility] [place] [address] [address] [place] [address] [place] [address] [facility] [address] [place] [address] 04/04/2025 12:00 PM ANIMAL TECHNICIAN Office Visit [facility] [address] [facility] [place] [address] Sugey Mccoy, K 8 [employer] [facility] [address] [place] [address] [address] [place] [address] 05/05/2025 9:00 AM ANIMAL TECHNICIAN Office Visit [facility] Physical Medicine and Rehabilitation Clinic [address] [place] [address] Jadon Floyd MD [address] [place] [address] 05/30/2025 10:20 AM ANIMAL TECHNICIAN Appointment [facility] [address] [facility] [address] [place] [address] Carlos Joyner MD [address] [place] [address] 05/31/2025 2:00 PM ANIMAL TECHNICIAN Virtual Visit [facility] Urology Clinic [address] [place] [address] Carlos Joyner MD [address] [place] [address] 07/25/2025 11:00 AM ANIMAL TECHNICIAN Office Visit [address] [address] [place] [address] [place] [address] documented as of this encounter Visit Diagnoses Not on filedocumented in this encounter Care Teams Sap Crm Developer Relationship Specialty Start [place] [address] [address] [place] [id number] PCP - General 03/05/23 Carlos Joyner MD [address] [place] [address] 592265 Urology 12/09/19 Jadon Murray MD [facility] [address] [phone] Referring Physician Pediatric Surgery 12/09/19 Maru Villagomez, RN Registered Nurse 12/10/19 Ang Slade MD [address] [place] [address] 671075 Urology 04/24/20 Carlos Joyner MD [address] [place] [address] 672045 Assigned Surgical Provider 12/24/20 Ang Slade MD [address] [place] [address] 442415 Urology 12/18/22 Lakshmi Wilhelm PA-C [address] [place] [address] 126765 Physician Metal Mockup Maker Urology 02/03/23 [place] [address] [place] [address] Assigned PCP 02/06/23 Alissa Perez PA-C [address] [place] [address] 352305 Physician Metal Mockup Maker Surgery 09/04/23 Lakshmi Wilhelm PA-C [address] [place] [address] 359185 Physician Metal Mockup Maker Urology 09/16/23 Aidee Valero PA-C [address] [place] [address] 753615 Assigned Musculoskeletal Provider 04/17/24 02/14/25 Carlos Joyner MD [address] [place] [address] 929275 Urology 01/26/25 Tanisha Marlow 4120 [facility] [address] 03/30/24 documented as of this encounter
--- OUTSIDE RECORDS SUMMARY | 2025-03-12 19:30 | XMS_ITS | Encounter Summary ---
Author Organization [place] Address [address] [place] [address] Care Team Providers Care Customer Associate Name Role Phone Carlos Joyner MD Unavailable [phone] Jadon Murray MD Unavailable [phone] Maru Villagomez RN Unavailable Unavailable Ignacia Duran MD Primary Care Provider [phone] Ang Slade MD Unavailable +[phone] Carlos Joyner MD Unavailable +[phone] Annalise Orta PA-C Unavailable +[phone] Ang Slade MD Unavailable +[phone] Lakshmi Wilhelm-C Unavailable +[phone] Heladio Willoughby MD Primary Care Provider [phone] Heladio Willoughby MD Unavailable Alissa Perez PA-C Unavailable [phone] LaLakshmi morales-C Unavailable +[phone] Aidee Valero PA-C Unavailable +[phone] Carlos Joyner MD Unavailable +[phone] Jadon Floyd MD Unavailable [phone] Cayden Bejarano MD Unavailable Encounter Details Date Type Department Care Team (Late st Contact Info) Description 11/14/2021 MyC Medical Advice [facility] Urology Clinic [address] 4th [place] [address] Analisa Palacio RN Social History [...] Info) Description 03/23/2025 12:45 PM CDT Appointment [facility] [address] [place] [address] Cayden Bejarano MD [address] [place] [address] [address] [place] [address] 03/23/2025 1:30 PM CDT Hospital Encounter [facility] [address] [place] [address] Cayden Bejarano MD [address] [place], [place] [address]A[address] [place] [address] 03/25/2025 10:20 AM CDT Virtual Visit [facility] Sports Medicine [facility] [place] [address] [place] [address] Cayden Bejarano MD [address] [place] [address] [address] [place] [address] 04/04/2025 12:00 PM SPIRITS MODEL Office Visit [facility] Center [place] [address] [facility] [place] [address] Sugey Mccoy APRN [facility] [address] [place] [address] [place] [address] 05/05/2025 9:00 AM SPIRITS MODEL Office Visit [facility] Physical Medicine and Rehabilitation Clinic [address]rd [place] [address] Jadon Floyd MD [address] [place] [address] 05/30/2025 10:20 AM SPIRITS MODEL Appointment [facility] [address] [facility] [address] [place] [address] Carlos Joyner MD [address] [place] [address] 495625 05/31/2025 2:00 PM SPIRITS MODEL Virtual Visit [facility] Urology Clinic [address]th [place] [address] Carlos Joyner MD [address] [place] [address] 019835 07/25/2025 11:00 AM SPIRITS MODEL Office Visit [facility] [address] [place] [address] [place] [address] [place] [address] documented as of this encounter Visit Diagnoses Not on filedocumented in this encounter Additional Health Concerns Infection Onset Date Last Indicated Resolved Time MRSA Comment:Added from external infection. Pt has had Staph infections but never MRSA from Care everywhere chart review. Removing MRSA 9.14.23 06/17/2019 02/06/2023 9:41 AM C DT documented as of this encounter Care Teams Customer Associate Relationship Specialty Start Date End Date Ignacia Duran MD PCP - General Pediatrics 01/20/20 03/04/23 [place] [address] [place] [address] PCP - General 03/05/23 Carlos Joyner MD [address] [place] [address] Urology 12/09/19 Jadon Murray MD [facility] [address] [address] Referring Physician Pediatric Surgery 12/09/19 Maru Villagomez, RN Registered Nurse 12/10/19 Ang Slade MD [address] [place] [address] Urology 04/24/20 Carlos Joyner MD [address] [place] [address] Assigned Surgical Provider 12/24/20 Annalise Orta PA-C 5200 [place] [address] Assigned Cancer Care Provider 05/13/21 11/01/22 Ang Slade MD [address] [address] Urology 12/18/22 Lakshmi Wilhelm PA-C [address] [place] [address]61 Physician Wheel Molder Urology 02/03/23 [place] [address] [facility] [place] [address] Assigned PCP 02/06/23 Alissa Perez PA-C [address] [place] [address] 017865 Physician Wheel Molder Surgery 09/04/23 Lakshmi Wilhelm PA-C [address] [place] [address] Physician Wheel Molder Urology 09/16/23 Aidee Valero PA-C [address] [place] [address] 685405 Assigned Musculoskeletal Provider 04/17/24 02/14/25 Carlos Joyner MD [address] [place] [address] 775825 Urology 01/26/25 Jadon Floyd MD [address] [place] [address] 793965 Physician Physical Medicine and Rehabilitation 01/31/25 [place] [address] [place] [address] Assigned Musculoskeletal Provider 02/15/25 Tanisha Marlow 4120 [facility] [address] 03/30/24 documented as of this encounter
--- OUTSIDE RECORDS SUMMARY | 2025-03-12 19:30 | XMS_ITS | Encounter Summary ---
Author Organization [place] Address [address] [place] [address] Care Team Providers Care Automobile Sales Representative Name Role Phone Carlos Joyner MD Unavailable [phone] Jadon Murray MD Unavailable [phone] Maru Villagomez RN Unavailable Unavailable Ignacia Duran MD Primary Care Provider [phone] Ang Slade MD Unavailable [phone] Carlos Joyner MD Unavailable +[phone] Annalise Orta PA-C Unavailable +[phone] Ang Slade MD Unavailable +[phone] Lakshmi Wilhelm-C Unavailable [phone] Heladio Willoughby MD Primary Care Provider [phone] Heladio Willoughby MD Unavailable Alissa Perez PA-C Unavailable [phone] LaLakshmi morales-C Unavailable [phone] Aidee Valero PA-C Unavailable +[phone] Carlos Joyner MD Unavailable +[phone] Jadon Floyd MD Unavailable [phone] Cayden Bejarano MD Unavailable Encounter Details Date Type Department Care Team (Late st Contact Info) Description 07/19/2021 MyC Medical Advice [facility] Orthopedic Clinic [place] [address] [facility] [address] 4th [place] [phone] Shyann Rehman Social History Tobacco Use Types [...] COVID-19? No / Unsure 06/19/2021 11:16 AM BOILERMAKER WELDER documented as of this encounter Plan of Treatment Upcoming Encounters Date Type Department Care Team (Late st Contact Info) Description 03/23/2025 12:45 PM CDT Appointment [facility] [address] [facility] [address] [place] [address] [place]den [place] [address] [place] [address] [address] [place] [address] 03/23/2025 1:30 PM CDT Hospital Encounter [facility] Imaging [address] [place] [address] [place] [address] [place]den [place]jarano [place] [address] [place], [place] [address]A[address] [place] [address] 03/25/2025 10:20 AM CDT Virtual Visit [facility] Sports Medicine Clinic [place] [address] [place] [address] [place] [address] [place] [address] [facility] [address] [place] [address] 04/04/2025 12:00 PM BOILERMAKER WELDER Office Visit [facility] Sleep Center [address] [address] Sugey Mccoy, STRIKE ON MACHINE OPERATOR COOK 3 [address] [address] [place] [address] 05/05/2025 9:00 AM BOILERMAKER WELDER Office Visit [facility] Physical Medicine and Rehabilitation Clinic [address] 3rd [place] [address] Jadon Floyd MD [address] [place] [address] 05/30/2025 10:20 AM BOILERMAKER WELDER Appointment [facility] Imaging [address] [facility] [address] [place] [address] Carlos Joyner MD [address] [place] [address] 04060455 05/31/2025 2:00 PM BOILERMAKER WELDER Virtual Visit [facility] Urology Clinic [address] 4th [place] [address] Carlos Joyner MD [address] [place] [address] [phone] 07/25/2025 11:00 AM BOILERMAKER WELDER Office [facility] [address] [place] [address] [place] [address] [place] [address] documented as of this encounter Visit Diagnoses Not on filedocumented in this encounter Additional Health Concerns Infection Onset Date Last Indicated Resolved Time MRSA Comment:Added from external infection. Pt has had Staph infections but never MRSA from Care everywhere chart review. Removing MRSA 9.14.23 06/17/2019 02/06/2023 9:41 AM C TANG documented as of this encounter Care Teams Automobile Sales Representative Relationship Specialty Start Date End Date Ignacia Duran MD PCP - General Pediatrics 01/20/20 03/04/23 [place] [address] [facility] [place] [place] [address] PCP - General 03/05/23 Carlos Joyner MD [address] [place] [address] Urology 12/09/19 Jadon Murray MD [facility] [address] [facility] 550 [place] [address] Referring Physician Pediatric Surgery 12/09/19 Maru Villagomez, RN Registered Nurse 12/10/19 Ang Slade MD [address] 187715 Urology 04/24/20 Carlos Joyner MD [address] [place] [address] 808615 Assigned Surgical Provider 12/24/20 Annalise Orta PA-C 5200 [place] [address] Assigned Cancer Care Provider 05/13/21 11/01/22 Ang Slade MD [address] [address] Urology 12/18/22 Lakshmi Wilhelm PA-C [address] [place] [address] Physician Dispatcher Chief Coal Slurry Urology 02/03/23 [place] [address] [place] [address] Assigned PCP 02/06/23 Alissa Perez PA-C [address] [place] [address]190 Physician Dispatcher Chief Coal Slurry Surgery 09/04/23 Lakshmi Wilhelm PA-C [address] [place] [address] Physician Dispatcher Chief Coal Slurry Urology 09/16/23 Aidee Valero PA-C [address] [place] [address] 71045 Assigned Musculoskeletal Provider 04/17/24 02/14/25 Carlos Joyner MD [address] [place] [address] Urology 01/26/25 Jadon Floyd MD [address] [place] [address]39 Physician Physical Medicine and Rehabilitation 01/31/25 [place] [address] [place] [address] Assigned Musculoskeletal Provider 02/15/25 Tanisha Marlow 4120 [facility] [address] 03/30/24 documented as of this encounter
--- OUTSIDE RECORDS SUMMARY | 2025-03-12 19:30 | XMS_ITS | Encounter Summary ---
Author Organization [place] Address [address] [facility] [place] [address] Care Team Providers Care Finish Filer Name Role Phone Carlos Joyner MD Unavailable + [phone] Jadon Murray MD Unavailable +[phone] Maru Villagomez RN Unavailable Unavailable Ang Slade MD Unavailable +[phone] Carlos Joyner MD Unavailable + [phone] Ang Slade MD Unavailable [phone] Lakshmi Wilhelm-C Unavailable +[phone] Heladio Willoughby MD Primary Care Provider [phone] Heladio Willoughby MD Unavailable Alissa Perez PA-C Unavailable [phone] Lakshmi Wilhelm-C Unavailable +[phone] Aidee Valero PA-C Unavailable +[phone] Carlos Joyner MD Unavailable + [phone] Jadon Floyd MD Unavailable +[phone] Cayden Bejarano MD Unavailable Encounter Details Date Type Department Care Team (Late st Contact Info) Description 03/27/2023 MyC Medical Advice UR PREOP/PHASE II 2450 [place] [address] Lisette Salinas, OTILIO Social History [...] [facility], or couch-surfing.) Yes 02/26/2023 Are you worried [...] 12:45 PM CDT Appointment [facility] [address] [facility] [address] [place] [address] [place] [address] [place] [address] 03/23/2025 1:30 PM CDT Hospital Encounter [facility] [address] [facility] [address] [place] [address] [place] [address] [place] [address] 03/25/2025 10:20 AM CDT Virtual Visit [facility] Sports Medicine [facility] [address] [place] [address] [address] [place] [address] [place] [address] [place] [address] 04/04/2025 12:00 PM GREEN CHAIN OPERATOR Office Visit [facility] Sleep [address] [phone] Sugey Mccoy, INSTRUMENT AND CONTROLS TECHNICIAN [address] 883204 05/05/2025 9:00 AM GREEN CHAIN OPERATOR Office Visit [facility] Physical Medicine and Rehabilitation Clinic [address]rd [place] [address] Jadon Floyd MD [address] [place] [address] 05/30/2025 10:20 AM GREEN CHAIN OPERATOR Appointment [facility] Imaging [address] [facility] [address] [place] [address] Carlos Joyner MD [address] [place] [address] 05/31/2025 2:00 PM GREEN CHAIN OPERATOR Virtual Visit [facility] Urology Clinic [place] [address] [facility] 4th [place] [address] Carlos Joyner MD [address] [place] [address] 170275 07/25/2025 11:00 AM GREEN CHAIN OPERATOR Office Visit [facility] [address] [facility] [place] [address] [place] [address] [place], [place] [phone] documented as of this encounter Visit Diagnoses Not on filedocumented in this encounter Care Teams Finish Filer Relationship Specialty Start [place] [address] [facility] [place], [place] [phone] PCP - General 03/05/23 Carlos Joyner MD [address] [place] [address] 905655 Urology 12/09/19 Jadon Murray MD [facility] [address] [address] Referring Physician Pediatric Surgery 12/09/19 Maru Villagomez, RN Registered Nurse 12/10/19 Ang Slade MD [address] [place] [address] 394 [place], [place] 538675 Urology 04/24/20 Carlos Joyner MD [address] [place] [address] 143915 Assigned Surgical Provider 12/24/20 Ang Slade MD [address] [place] [address] 636455 Urology 12/18/22 Lakshmi Wilhelm PA-C [address] [place] [address] 60989 Physician Spinning Lathe Operator Hydraulic Urology 02/03/23 [place] [address] [place] [address] Assigned PCP 02/06/23 Alissa Perez PA-C [address] [place] [address] Physician Spinning Lathe Operator Hydraulic Surgery 09/04/23 Lakshmi Wilhelm PA-C [address] [place] [address] Physician Spinning Lathe Operator Hydraulic Urology 09/16/23 Aidee Valero PA-C [address] [place] [address] Assigned Musculoskeletal Provider 04/17/24 02/14/25 Carlos Joyner MD [address] [place] [address] Urology 01/26/25 Jadon Floyd MD [address] [place] [address] 800245 Physician Physical Medicine and Rehabilitation 01/31/25 [place] [address] [place] [address] Assigned Musculoskeletal Provider 02/15/25 Tanisha Marlow [address] [place] [place] [address] 03/30/24 documented as of this encounter
--- OUTSIDE RECORDS SUMMARY | 2025-03-12 19:30 | XMS_ITS | Encounter Summary ---
Author Organization [facility] Address [address] [place] [address] Care Team Providers Care Pile Driver Engineer Name Role Phone Carlos Joyner MD Unavailable [phone] Jadon Murray MD Unavailable [phone] Maru Villagomez RN Unavailable Unavailable Ignacia Duran MD Primary Care Provider [phone] Ang Slade MD Unavailable [phone] Carlos Joyner MD Unavailable [phone] Annalise Orta PA-C Unavailable +[phone] Ang Slade MD Unavailable +[phone] Lakshmi Wilhelm-C Unavailable +[phone] Heladio Willoughby MD Primary Care Provider [phone] Heladio Willoughby MD Unavailable Alissa Perez PA-C Unavailable [phone] LaLakshmi morales-C Unavailable +[phone] Aidee Valero PA-C Unavailable +[phone] Carlos Joyner MD Unavailable +[phone] Jadon Floyd MD Unavailable [phone] Cayden Bejarano MD Unavailable Encounter Details Date Type Department Care Team (Late st Contact Info) Description 04/16/2021 MyC Medical Advice [facility] [address] 4th [place] [phone] Berna Britton Social History Tobacco Use Types [...] CDT Appointment [facility] [address] [facility] [address] [place] [phone] [place]den [place]jar[place] [id number] [place] [address] [address] [place] [address] 03/23/2025 1:30 PM CDT Hospital Encounter [facility] Imaging [address] [facility] [address] [place] [phone] Cayden Bejarano MD [address] [place] [address] [address] [place] [address] 03/25/2025 10:20 AM CDT Virtual Visit [facility] [place] [address] [place] [address] [address] [place] [address] [place] [address] [place] [address] 04/04/2025 12:00 PM SCAFFOLDER Office Visit [facility] [address] [phone] Sugey Mccoy, POWER DIGGER OPERATOR [facility] [address] [place] [address] 010764 05/05/2025 9:00 AM SCAFFOLDER Office Visit [facility] [address] [place] [address] Jadon Floyd MD [address] [place] [address] 742515 05/30/2025 10:20 AM SCAFFOLDER Appointment [facility] [address] [place] [address] Carlos Joyner MD [address] [place] [address] 167355 05/31/2025 2:00 PM SCAFFOLDER Virtual Visit [facility] Urology [facility] [address] [place] [address] Carlos Joyner MD [address] [place] [address] 800495 07/25/2025 11:00 AM SCAFFOLDER Office Visit [facility] [address] [place] [address] [place] [address] [place] [address] documented as of this encounter Visit Diagnoses Not on filedocumented in this encounter Additional Health Concerns Infection Onset Date Last Indicated Resolved Time MRSA Comment:Added from external infection. Pt has had Staph infections but never MRSA from Care everywhere chart review. Removing MRSA 02.06.23 06/17/2019 02/06/2023 9:41 AM C DT documented as of this encounter Care Teams Pile Driver Engineer Relationship Specialty Start Date End Date Ignacia Duran MD PCP - General Pediatrics 01/20/20 03/04/23 [place] [address] [facility] [place] [address] PCP - General 03/05/23 Carlos Joyner MD [address] [place] [address] Urology 12/09/19 Jadon Murray MD [facility] 2530 [facility] [address] [address] Referring Physician Pediatric Surgery 12/09/19 Maru Villagomez, RN Registered Nurse 12/10/19 Ang Slade MD [address] [place] [address] 026175 Urology 04/24/20 Carlos Joyner MD [address] [place] [address] 300235 Assigned Surgical Provider 12/24/20 Annalise Orta PA-C 5200 [place] [address] Assigned Cancer Care Provider 05/13/21 11/01/22 Ang Slade MD [address] [id number] Urology 12/18/22 Lakshmi Wilhelm PA-C [address] [place] [address] Physician Toll Test Worker Urology 02/03/23 [place] [address] [place] [address] Assigned PCP 02/06/23 Alissa Perez PA-C [address] [place] [address] Physician Toll Test Worker Surgery 09/04/23 Lakshmi Wilhelm PA-C [address] [place] [address] Physician Toll Test Worker Urology 09/16/23 Aidee Valero PA-C [address] [place] [address] Assigned Musculoskeletal Provider 04/17/24 02/14/25 Carlos Joyner MD [address] [place] [address] Urology 01/26/25 Jadon Floyd MD [address] [place] [address] Physician Physical Medicine and Rehabilitation 01/31/25 [place] [address] [place] [address] Assigned Musculoskeletal Provider 02/15/25 Tanisha Marlow 4120 [facility] [address] 03/30/24 documented as of this encounter
--- OUTSIDE RECORDS SUMMARY | 2025-03-12 19:30 | XMS_ITS | Encounter Summary ---
Author Organization [facility] Address [address] [place] [address] Care Team Providers Care Weigher Packing Name Role Phone Carlos Joyner MD Unavailable [phone] Jadon Murray MD Unavailable [phone] Maru Villagomez RN Unavailable Unavailable Ang Slade MD Unavailable [phone] Carlos Joyner MD Unavailable [phone] Ang Slade MD Unavailable [phone] Lakshmi WilhelmC Unavailable [phone] Heladio Willoughby MD Primary Care Provider [phone] Heladio Willoughby MD Unavailable Alissa Perez-Juan A Unavailable [phone] Lakshmi Wilhelm PA-C Unavailable [phone] Carlos Joyner MD Unavailable +[phone] Jadon Floyd MD Unavailable [phone] Cayden [...] Answer Date Recorded PHQ-2 Score 0 [facility]/20[facility] [...] Description 03/23/2025 12:[address] [facility] [address] [facility] [address] [place] [phone] [place]den [place] [id number] [place] [address] [address] [place] [address] 03/23/2025 1:30 PM CDT Hospital Encounter [facility] [address] [facility] [address] [place] [phone] [place] [address] [facility] [address] [address] [place] [address] 03/25/2025 10:20 AM CDT Virtual Visit [facility] [place] [address] [facility] [address] [place] [address] [place] [address] [facility] [address] [place] [address] 04/04/2025 12:00 PM SPOOL SANDER Office Visit [facility] [address] [address] Sugey Mccoy, DOCTOR OF PODIATRY MASTER CONTROL ENGINEER [address] [place] [address] 05/05/2025 9:00 AM SPOOL SANDER Office Visit [facility] [address] [place] [address] Jadon Floyd MD [address] [place] [address] 226745 05/30/2025 10:20 AM SPOOL SANDER Appointment [facility] Imaging [address] [place] [phone] Carlos Joyner MD [address] [place] [address] 694975 05/31/2025 2:00 PM SPOOL SANDER Virtual Visit [facility] [address] [place] [phone] Carlos Joyner MD [address] [place] [address] [phone] 07/25/2025 11:00 AM SPOOL SANDER Office Visit [facility] [address] [place] [phone] [place] [address] [place], [place] [phone] documented as of this encounter Visit Diagnoses Not on filedocumented in this encounter Care Teams Weigher Packing Relationship Specialty Start [place] [address] [place] [address] PCP - General 03/05/23 Carlos Joyner MD [address] [place] [address] [phone] Urology 12/09/19 Jadon Murray MD [facility] 2530 [facility] [address] [place] [address] Referring Physician Pediatric Surgery 12/09/19 Maru Villagomez, RN Registered Nurse 12/10/19 Ang Slade MD [address] [place] [address] 394 [place], [place] 030165 Urology 04/24/20 Carlos Joyner MD [address] [place] [address] 487265 Assigned Surgical Provider 12/24/20 Ang Slade MD [address] [place] [address] [phone] Urology 12/18/22 Lakshmi Wilhelm PA-C [address] [place] [address] [phone] Physician [employer] Urology 02/03/23 [place] [address] [place] [address] Assigned PCP 02/06/23 Alissa Perez PA-C [address] [place] [address] 406335 Physician [employer] Surgery 09/04/23 Lakshmi Wilhelm PA-C [address] [place] [address] 675805 Physician [employer] Urology 09/16/23 Carlos Joyner MD [address] [place], [place] 658215 Urology 01/26/25 Jadon Floyd MD [address] [place] [address] 712145 Physician Physical Medicine and Rehabilitation 01/31/25 [place] [address] [place] [address] Assigned Musculoskeletal Provider 02/15/25 Tanisha Marlow 4120 [facility] [address] 03/30/24 documented as of this encounter
--- OUTSIDE RECORDS SUMMARY | 2025-03-12 19:30 | XMS_ITS | Encounter Summary ---
Author Organization [place] Address [address] [place] [address] Care Team Providers Care Contract Serviceman Name Role Phone Carlos Joyner MD Unavailable [phone] Jadon Murray MD Unavailable [phone] Maru Villagomez RN Unavailable Unavailable Ignacia Duran MD Primary Care Provider [phone] Ang Slade MD Unavailable [phone] Carlos Joyner MD Unavailable +[phone] Annalise Orta PA-C Unavailable +[phone] Ang Slade MD Unavailable [phone] Lakshmi Wilhelm-C Unavailable [phone] Heladio Willoughby MD Primary Care Provider [phone] Heladio Willoughby MD Unavailable Alissa Perez PA-C Unavailable [phone] LaLakshmi morales-C Unavailable [phone] Aidee Valero PA-C Unavailable [phone] Carlos Joyner MD Unavailable [phone] Jadon Floyd MD Unavailable [phone] Cayden Bejarano MD Unavailable Encounter Details Date Type Department Care Team (Late st Contact Info) Description 06/19/2021 MyC Medical Advice [facility] [address] 4th [place] [address] Jenna Mcfadden RN Social History Tobacco Use [...] COVID-19? No / Unsure 06/19/2021 11:16 AM ELECTRICAL TECHNICIAN documented as of this encounter Plan of Treatment Upcoming Encounters Date Type Department Care Team (Late Contact Info) Description 03/23/2025 12:45 PM CDT Appointment [facility] [address] [place] [address] [place] [address] [place] [address] [place] [address] 03/23/2025 1:30 PM CDT Hospital Encounter [facility] [address] [place] [address] [place] [address] [facility] [address] [place] [address] 03/25/2025 10:20 AM CDT Virtual Visit [facility] [place] [address] [place] [address] [place] [address] [facility] [address] [place] [address] 04/04/2025 12:00 PM ELECTRICAL TECHNICIAN Office Visit [facility] [address] [phone] Darius Elvir[place]ia Elder, AUDIO VISUAL SPECIALIST ENTERPRISE SERVICES MANAGER [address] [place], [place] [address] 05/05/2025 9:00 AM ELECTRICAL TECHNICIAN Office Visit [facility] Rehabilitation [facility] [address] 3rd [place] [phone] Jadon Floyd MD [address] [place] [address] 05/30/2025 10:20 AM ELECTRICAL TECHNICIAN Appointment [facility] [address] [facility] [address] [place] [phone] Carlos Joyner MD [address] [place] [address] [phone] 05/31/2025 2:00 PM ELECTRICAL TECHNICIAN Virtual Visit [facility] [address] 4th [place] [phone] Carlos Joyner MD [address] [place] [address] [phone] 07/25/2025 11:00 AM ELECTRICAL TECHNICIAN Office Visit [facility] [address] [place] [address] Heladio Willoughby MD [address] [place] [address] documented as of this encounter Visit Diagnoses Not on filedocumented in this encounter Additional Health Concerns Infection Onset Date Last Indicated Resolved Time MRSA Comment:Added from external infection. Pt has had Staph infections but never MRSA from Care everywhere chart review. Removing MRSA 9.14.23 06/17/2019 02/06/2023 9:41 AM C DT documented as of this encounter Care Teams Contract Serviceman Relationship Specialty Start Date End Date Ignacia Duran MD PCP - General Pediatrics 01/20/20 03/04/23 [place] [address] [facility] [place] [address] PCP - General 03/05/23 Carlos Joyner MD [address] [place] [address] Urology 12/09/19 Jadon Murray MD [facility] [address] [address] Referring Physician Pediatric Surgery 12/09/19 Maru Villagomez, RN Registered Nurse 12/10/19 Ang Slade MD [address] 504705 Urology 04/24/20 Carlos Joyner MD [address] [place] [address] [phone] Assigned Surgical Provider 12/24/20 Annalise Orta PA-C 5200 [place] [address] Assigned Cancer Care Provider 05/13/21 11/01/22 Ang Slade MD [address] [address] Urology 12/18/22 Lakshmi Wilhelm PA-C [address] [place] [address] Physician Pain Management Physician Urology 02/03/23 [place] [address] [place] [address] Assigned PCP 02/06/23 Alissa Perez PA-C [address] [place] [address] Physician Pain Management Physician Surgery 09/04/23 Lakshmi Wilhelm PA-C [address] [place] [address] Physician Pain Management Physician Urology 09/16/23 Aidee Valero PA-C [address] [place] [address] Assigned Musculoskeletal Provider 04/17/24 02/14/25 Carlos Joyner MD [address] [place] [address] Urology 01/26/25 Jadon Floyd MD [address] [place] [address] Physician Physical Medicine and Rehabilitation 01/31/25 [place] [address] [place] [address] Assigned Musculoskeletal Provider 02/15/25 Tanisha Marlow 4120 [facility] [address] 03/30/24 documented as of this encounter
--- OUTSIDE RECORDS SUMMARY | 2025-03-12 19:30 | XMS_ITS | Clinical Summary ---
Author Organization [facility] Address [address] [place] [address] Care Team Providers Care Hvac Design Mechanical Engineer Name Role Phone Carlos Joyner MD Unavailable [phone] Jadon Murray MD Unavailable [phone] Maru Villagomez RN Unavailable Unavailable Ang Slade MD Unavailable [phone] Carlos Joyner MD Unavailable [phone] Ang Slade MD Unavailable [phone] Lakshmi Wilhelm-C Unavailable [phone] Heladio Willoughby MD Primary Care Provider [phone] Heladio Willoughby MD Unavailable Alissa Perez PA-C Unavailable [phone] Lakshmi Wilhelm PA-C Unavailable [phone] Carlos Joyner MD Unavailable [phone] Jadon Floyd MD Unavailable [phone] Cayden Bejarano MD Unavailable Allergies Active [...] BANDAGE 4) MISC Apply 1 each topically Active Multiple Vitamin (MULTI-VITAMINS) TABS Take 1 tablet by mouth every evening Active sodium chloride 0.9%, bottle, 0.9 % irrigation Irrigate with 60 mLs as directed 2 times daily Instill 60 ml into bladder along with Gentamicin solution Active MONOJECT HYPODERMIC NEEDLE 18G X 1 MISC USE TO FLUSH BLADDER Active B-D SYRINGE LUER-OLGA 30 ML MISC USE TO FLUSH BLADDER Active NEW MEDIndications:Rec urrent UTI 480 MG Gentamicin in 1 Liter 0.9 Normal Saline. Instill 60 mL of Gentamicin solution into bladder at HS 1800 mL 11 Active Saline Bacteriostatic (SODIUM CHLORIDE BACTERIOSTATIC) 0.9 % SOLN flushIndications:R ecurrent UTI Irrigate with 30 mLs as directed At Bedtime for 31 doses 930 mL 11 Active NEW MEDIndications:DUP ICATE 480mg Gentamicin in [...] 1 Refill(s), Maintenance, other Active Wound Dressings (MEDIHONEY CA ALGINATE 2X2) PADSIndications:Pr essure ulcer acquired in [facility] Externally apply 1 each topically daily 10 each 023 Active potassium chloride ER (K-TAB) 20 MEQ CR tabletIndications: Hypercalciuria Take 1 tablet (20 mEq) by mouth daily 90 tablet 3 024 Active gentamicin (GARAMYCIN) 40 MG/ML injection 40 mg every 24 hours. 024 Active COMPOUNDED NON-CONTROLLED SUBSTANCE (CMPD RX) - PHARMACY TO MIX COMPOUNDED MEDICATIONIndicati ons:Recurrent UTI Instill 30 mL into the bladder via straight catheter once daily per provider instructions. 900 mL 11 025 Active indapamide (LOZOL) 1.25 MG tabletIndications: Hypercalciuria Take 1 tablet (1.25 mg) by mouth every morning. 90 tablet 3 025 Active cyclobenzaprine (FLEXERIL) 5 MG tablet Take 5 mg by mouth 3 times daily as needed for muscle spasms. Active potassium chloride marcie ER (KLOR-CON M10) 10 MEQ CR tabletIndications: Hypercalciuria TAKE ONE TABLET BY MOUTH TWICE DAILY 90 tablet 025 Active potassium chloride marcie ER (KLOR-CON M10) 10 MEQ CR tabletIndications: Kidney stone Take 1 tablet (10 mEq) by mouth 2 times daily. 180 tablet 3 025 Active Vitamin D3 (VITAMIN D, CHOLECALCIFEROL,) 25 mcg (1000 units) tablet Take by mouth daily. Active oxyBUTYnin (DITROPAN) 5 MG tabletIndications: Bladder spasms Take 1 tablet (5 mg) by mouth 2 times daily. 180 tablet 2 025 Active polyethylene glycol (MIRALAX) 17 GM/Dose powderIndications: Bilateral nephrolithiasis Take 17 g by mouth daily. 510 g 025 Active sennosides (SENOKOT) 8.6 MG tabletIndications: Bilateral nephrolithiasis Take 1 tablet by mouth 2 times daily as needed for constipation. 100 tablet 025 Active levonorgestrel (MIRENA) 52 MG (20 mcg/day) IUD 1 each by Intrauterine route once. Active Acetohydroxamic Acid (LITHOSTAT) 250 MG TABSIndications:Re current UTI Take 250 mg by mouth 3 times daily. 270 tablet 3 025 Active sulfamethoxazole-t rimethoprim (BACTRIM DS) 800-160 MG tabletIndications: Recurrent UTI Take 1 tablet by mouth 2 times daily. Take TWICE daily for one week, then decrease dose to ONCE daily for an additional week. 21 tablet 025 Active sodium chloride 0.9%, bottle, 0.9 % irrigationIndicati ons:Neurogenic bladder,Recurrent UTI Irrigate with 240 mLs as directed daily. 47676 mL 3 Active sodium chloride 0.9%, bottle, 0.9 % irrigationIndicati ons:Neurogenic bladder,Recurrent UTI Irrigate with 240 mLs as directed daily. 46764 mL 3 025 2024 Discontinued Tdap, tetanus-diptheria- acell pertussis, (BOOSTRIX) 5-2.5-18.5 LF-MCG/0.5 PEPE injectionIndicatio ns:Need for vaccination Inject 0.5 mLs into the muscle once for 1 dose. 0.5 mL 025 2024 Discontinued Tdap, tetanus-diptheria- acell pertussis, (BOOSTRIX) 5-2.5-18.5 LF-MCG/0.5 PEPE injectionIndicatio ns:Need for vaccination Inject 0.5 mLs into the muscle once for 1 dose. 0.5 mL 025 2024 Discontinued Tdap, tetanus-diptheria- acell pertussis, (BOOSTRIX) 5-2.5-18.5 LF-MCG/0.5 PEPE injectionIndicatio ns:Need for vaccination Inject 0.5 mLs into the muscle once for 1 dose. 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 (03/14/2020): Vertebra Absence Congenital Kyphosis (acquired) (postural) 08/04/2008 Overview (03/14/2020): Kyphosis Neurogenic bladder 07/22/2003 Overview (03/05/2023): LW Onset: 61Ehj71 ; Paralysis Bladder Neurogenic bowel 07/22/2003 Overview (03/14/2020): LW Onset: 52Bfc24 Paraplegia 07/22/2003 Overview (01/24/2025): T12 paraplegia, completely flaccid Short stature disorder 07/22/2003 Overview (03/14/2020): LW Onset: 75Dcl55 ; Short Stature 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/22/2003 Overview (07/23/2024): Complicated by hydrocephalus, s/p SUPERVISOR PLATE PASTING shunt; chiari type 2 malformation, syringomyelia, neurogenic bowel and bladder. At : [facility], aplasia cutis of scalp (pinpoint), R knee contracture, clubbed feet bilaterally, microcephaly, kyphosis. Specialist involved: Adult Sp[facility] Bifida Clinic - looking into locations/referrals Adult neurosurgery team - not needed until age 27 (currently following with Dr. Rodgers of [facility]) Adult Urology team - Dr. Jyoner of [facility] Adult Sleep Medicine - referral placed Adult Orthopaedics - [facility] Ortho Resolved Problems Problem Noted Date Diagnosed Date Resolved Date Acute kidney failure, unspecified 02/10/2020 03/05/2023 Ulcer, surgical 06/07/2011 07/22/2024 Encounters Date Type Department Care Team Description 03/10/2025 10:00 AM CDT Office Visit [facility] [address] [place] [phone] Pam Lau MD Hospital discharge follow-up (Primary Dx); Fever, unspecified fever cause; Acute respiratory failure with hypoxia (H); Wound of sacral region, subsequent encounter; Thrombocytopenia; Pneumonia of right lower lobe due to infectious organism; Neurogenic dysfunction of the urinary bladder; Paraplegia (H); Horseshoe kidney; S/P SUPERVISOR PLATE PASTING shunt; Need for vaccination 03/10/2025 Travel 03/08/2025 Travel 03/08/2025 Telephone [facility] [address] [place] [phone] Heladio Willoughby MD 03/07/2025 Telephone [facility] [address] [place] [address] Heladio Willoughby MD Forms ([facility] / PT Daily Note/) 03/07/[address] [facility] Physical Medicine and Rehabilitation Clinic [address] [phone] Jadon Floyd MD Appointment (04/05 Appt) 02/28/2025 Travel 02/25/2025 10:45 AM CDT Virtual Visit [facility] Urology Clinic [address] [phone] Estrella Martinez NP Neurogenic bladder (Primary Dx); Recurrent UTI 02/25/2025 Results Follow-Up [facility] Urology [address] [phone] Rosita Velasco RN Dx: Recurrent UTI (Primary Dx) 02/24/[address] [facility] Urology [address] [phone] Estrella Martinez NP Pre Visit Planning - Done 02/22/2025 2:30 PM CDT Therapy Visit [address] [address] Eliza Carty OT 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, initial encounter (Primary Dx); Right wrist pain 02/22/2025 MyC Medical Advice [address] [place] [phone] Eliza Carty OT 02/22/2025 Travel 02/21/2025 11:05 AM CDT Lab [facility] [address] [place] [phone] Recurrent UTI; Kidney stone 02/21/2025 Travel 02/17/2025 Travel 02/16/[address] [facility] Urology [address] [phone] Carlos Joyner MD Appointment (TE on 02/08/25 instructing Pt to schedule with Elissa Martinez CNP. Pain Management Specialist does not have access to this provider. ) 02/15/2025 10:00 AM CDT Therapy Visit [address] [place] [phone] Eliza Carty OT 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, initial encounter (Primary Dx); Right wrist pain 02/15/2025 Travel 02/11/2025 Travel 02/08/2025 3:00 PM CDT Therapy Visit [address] [place] [address] Cayden Bejarano MD Burch, Sophia, OT 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, initial encounter (Primary Dx); Right wrist pain 02/08/2025 Travel 02/08/[address] [facility] Sports Medicine [address] [address] Cayden Bejarano MD 02/04/2025 Travel 02/03/[address] [facility] Urology Clinic [address] [phone] Carlos Joyner MD Prior Auth - Medication (Acetohydroxamic Acid (LITHOSTAT) 250 MG TABS - [place] APPROVED) 02/03/[address] [facility] Urology [address] [phone] Carlos Joyner MD 02/03/[address] [phone] Heladio Willoughby MD Forms ([place] Outpatient/Thoratic Spina bifida- [facility]/) 02/01/2025 10:05 AM CDT Ancillary Procedure [facility] Sports and Orthopedic Care [address] [place] [address] Cayden Bejarano MD Right wrist pain 02/01/2025 10:00 AM CDT Office Visit [facility] Medicine [address] [address] Heladio Willoughby MD Yeo, Albert, MD 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, initial encounter (Primary Dx); Right wrist pain 02/01/2025 Travel 01/28/2025 9:30 AM CDT Office Visit [facility] [address] [place] [phone] Heladio Willoughby MD Visit for wound check (Primary Dx); Pressure injury of back, stage 2 (H); Paraplegia (H); Right wrist pain 01/28/[address] [facility] Physical Medicine and Rehabilitation [address] [phone] Unknown, MD Ronak 01/28/2025 Travel 01/27/2025 Travel 01/26/2025 Travel 01/25/2025 10:45 AM CDT Virtual Visit [facility] Urology [address] [phone] Carlos Joyner MD Recurrent UTI (Primary Dx); Kidney stone 01/25/[address] [facility] Physical Medicine and Rehabilitation [address] [phone] Unknown Referral 01/25/[address] [facility] Urology [address] [phone] Rosita Velasco RN Pre Visit Planning - Done 01/24/2025 Telephone [facility] [address] [place] [phone] Heladio Willoughby MD 01/19/2025 11:30 AM CDT Office Visit [facility] [address] [place] [phone] Heladio Willoughby MD IUD check up (Primary Dx); Pressure injury of left lower back, stage 2 (H); History of pressure injury of skin; Paraplegia (H); Right wrist pain 01/18/2025 10:07 AM CDT - 01/18/2025 11:59 PM CDT Hospital Encounter [facility] [address] [facility] [address] [place] [phone] Mary Jo Pineda MD Bilateral nephrolithiasis Discharge Disposition: Home or Self Care 01/18/2025 Travel 01/17/2025 Travel 01/12/2025 5:30 PM CDT Virtual Visit [facility] [address] [place] [phone] Belen Arellano APRN DYNAMOMETER MECHANIC Open wound (Primary Dx); Paraplegia (H); Thoracic spina bifida, unspecified hydrocephalus presence (H) 01/12/2025 Results Follow-Up [facility] Sleep Center [address], [place] [phone] Sugey Mccoy APRN DYNAMOMETER MECHANIC Subj: Sleep study results 01/03/2025 8:00 PM CDT Therapy Visit [facility] Sleep [facility] [address] [facility] [address] [place] [phone] Sugey Mccoy APRN DYNAMOMETER MECHANIC Snoring; Daytime sleepiness; Thoracic spina bifida, unspecified hydrocephalus presence (H); Chiari malformation type II (H) 01/03/2025 Travel 12/29/2024 Travel 12/20/2024 Medical Correspondence [facility] Information Management [address] [place] [phone] Scan, Non-Provider 12/17/2024 Medical Correspondence [address] [phone] Scan, Non-Provider 12/17/2024 Telephone [facility] [address] [place] [address] Heladio Willoughby MD Forms ([employer] [facility]/Standard written Order/Medicare Power mobility) 12/17/2024 MyC Medical Advice [facility] [address] [place] [address] Heladio Willoughby MD 12/17/2024 Telephone [facility] [address] [place] [address] Heladio Willoughby MD Forms (Justification For Durable medical Equipment/Mobility Assistance / Electric Wheelchair/) 12/14/2024 11:00 AM CDT [facility] [address] [place] [address] Heladio Willoughby MD Encounter for insertion of intrauterine contraceptive device (Primary Dx) 12/14/2024 Telephone [facility] [address] [place] [address] Heladio Willoughby MD Forms ([facility]) 12/14/2024 Travel from Last 3 Months Immunizations Immunization Administration Dates Next Due COVID-19 12+ (Pfizer) 03/10/2025 DTAP (<7y) 01/18/2008,05/06/2005 DTaP, Unspecified 01/16/2015 DTaP/HepB/IPV 05/27/2003,03/21/2003,2002 Flu, Unspecified 02/26/2016,02/21/2009, 4 L3l8-59 Novel Flu 03/18/2009 C1q0-63 Novel Flu P-free 03/30/2004,05/27/2003 HIB (PRP-T) 05/27/2003,03/21/2003,2002 HIB, Unspecified 05/27/2003,03/21/2003, 3 HPV9 (Gardasil) 04/16/2023,06/17/2019,12/18/2017 Hepatitis A (Vaqta/Havrix)(P eds 12m-18y) 01/18/2008,08/08/2006 Influenza (H1N1) 03/18/2009 Influenza (IIV3) PF 06/09/2013, 2,02/25/2011,02/21,03/23/2007,03/30/2004 Influenza (prior to 2023) 04/23/2012,07/2010,02/21/2009,03/23,03/30/2004,05/27/2003 Influenza Vaccine 18-64 (Flublok) 03/05/2023 Influenza Vaccine >6 months,quad, PF 12/2021,03/27/2021,03/22/2020,06/17,03/06/2018,02/26/2016,04/27/2014 Influenza Vaccine, 6+MO IM (QUADRIVALENT W/PRESERVATIVES) 05/02/2022,03/27/2021 Influenza, Split Virus, Triv alent, Pf (Fluzone\Fluarix) 03/10/2025 MMR (MMRII) 01/18/2008,09/15/2003 Meningococcal ACWY (Menveo ) [...] Recorded PHQ-2 Score 0 09/13/2024 [facility] Occupat ional Health - Occupational Stress [...] Mass Index 28.34 03/10/2025 9:46 AM CDT Plan of Treatment Upcoming Encounters Date Type Department Care Team (Late st Contact Info) Description 03/23/2025 12:45 PM CDT Appointment [facility] [address] [facility] [address] [place] [phone] [place] [address] [place] [address] 03/23/2025 1:30 PM CDT Hospital Encounter [facility] [address] [place] [phone] [place] [address] [facility] [address] [facility] [address] [place] [address] 03/25/2025 10:20 AM CDT Virtual Visit [facility] Sports Medicine [facility] [place] [address] [place] [address] [address] [place] [address] [place] [address] [place] [address] 04/04/2025 12:00 PM SUPERVISOR [employer] Office Visit [facility] Sleep Center [address] [phone] Sugey Mccoy APRN [address] [address] 05/05/2025 9:00 AM SUPERVISOR [employer] Office Visit [facility] Physical Medicine and Rehabilitation Clinic [address] 3[address] [place] [phone] Jadon Floyd MD [address] [place] [address] 05/30/2025 10:20 AM SUPERVISOR [employer] Appointment [facility] [address] [place] [phone] Carlos Joyner MD [address] [place] [phone] 05/31/2025 2:00 PM SUPERVIS[employer] Virtual Visit [facility] Urology Clinic [address] [place] [phone] Carlos Joyner MD [address] [place] [phone] 07/25/2025 11:00 AM SUPER[employer] Office Visit [facility] [address] [place] [address] [place] [address] [place] [address] Health Maintenance Due Date Last Done Comments MENINGITIS B VACCINE (1 of 2 - Standard) 2018 DTAP/TDAP/TD VACCINE (8 - Td or Tdap) 01/16/2025 01/16/2015, 01/16/2015, 01/18/2008, Additional history exists MEDICARE ANNUAL WELLNESS VISIT 07/21/2025 07/21/2024, 04/16/2023 ANNUAL REVIEW OF HM ORDERS 03/10/2026 03/10/2025 PAP 09/14/2027 09/13/2024 CHLAMYDIA SCREENING 07/15/2028 Postpone [...] Completed 09/13/2024, 09/08/2024, 06/24/2023, Additional history exists COVID-19 VACCINE Completed 03/10/2025, , 03/21/2023, Additional history exists INFLUENZA VACCINE Completed 03/10/2025, , 05/02/2022, Additional history exists Medical Devices Implanted Type Area Data Capture Specialist Device Identifier Shelf Expiration Date Model / Serial / Lot Lease Administrator Shunt Shunt CODMAN / / [id number] Description:Per note, Jacey Aida, needs model # Stent Ureteral Percuflex Plus [id number] - [id number] Implanted:Qty: 1 on 11/12/2021 by Carlos Joyner MD at [facility] Stent Right: Abdomen [employer] [id number] 12/26/2022 [id number] Stent Ureteral Percuflex Plus [id number] - [id number] Implanted:Qty: 1 on 12/02/2024 by Carlos Joyner MD at [facility] Stent Left: Ureter [employer] [id number] 06/03/2027 [id number] Stent Ureteral Percuflex Plus [id number] - [id number] Implanted:Qty: 1 on 12/02/2024 by Carlos Joyner MD at [facility] Stent Right: Ureter [employer] [id number] 04/13/2027 [id number] Ureteral Catheter 5 Israeli Implanted:Qty: 1 on 03/31/2023 by Elizabeth Jacobsen MD at [facility] Right: Ureter 02/02/2026 [id number] Description:5 mongolian Uretera l catheter used as a stent in right ureter 5 Israeli Open Ended Catheter Implanted:Qty: 1 on 03/31/2023 by Elizabeth Jacobsen MD at [facility] Left: Ureter 02/19/2026 [id number] Explanted Type Area Data Capture Specialist Device Identifier Shelf Expiration Date Model / Serial / Lot Stent Ureteral Percuflex Plus [id number] - [id number] Implanted:Qty: 1 on 05/10/2021 by Carlos Joyner MD at [facility] Explanted:Qty: 1 on 08/09/2021 by Jane Gomez MD at [facility] Stent Right: Urethra [employer] 06/14/2022 [id number] Description:Ureter Stent Ureteral Percuflex Plus [id number] - [id number] Implanted:Qty: 1 on 05/10/2021 by Carlos Joyner MD at [facility] Explanted:Qty: 1 on 08/09/2021 by Jane Gomez MD at [facility] Stent Left: Urethra [employer] 07/25/2022 [id number] Stent Ureteral Percuflex Plus [id number] - [id number] Implanted:Qty: 1 on 08/09/2021 by Jane Gomez MD at [facility] Explanted:Qty: 1 on 11/12/[address] [facility] Stent Right: Ureter [employer] 02/29/2024 [id number] Stent Ureteral Percuflex Plus [id number] - [id number] Implanted:Qty: 1 on 08/09/2021 by Jane Gomez MD at [facility] Explanted:Qty: 1 on 11/12/[address] [facility] Stent Right: Ureter [employer] 02/29/2024 [id number] 5 Fr X 22cm Ureteral Stent Explanted:Qty: 1 on 02/07/2020 by Carlos Joyner MD at [facility] COOK 5 Fr X 22cm Ureteral Stent Explanted:Qty: 1 on 02/07/2020 by Carlos Joyner MD at [facility] COOK Procedures Procedure Name Priority Date/Time Associated Diagnosis Comments XRAY IMAGING - HIM SCAN 03/03/2025 12:00 AM CDT POTASSIUM (EXTERNAL RESULT) Routine 03/01/2025 5:07 PM CDT CREATININE (EXTERNAL RESULT) Routine 03/01/2025 3:59 AM CDT GLUCOSE (EXTERNAL RESULT) Routine 03/01/2025 3:59 AM CDT ALT (EXTERNAL RESULT) Routine 03/01/2025 3:59 AM CDT AST (EXTERNAL RESULT) Routine 03/01/2025 3:59 AM CDT LAB RESULT - HIM SCAN 03/01/2025 12:[address] IMAGING - HIM SCAN 03/01/2025 12:00 AM CDT CBC WITH PLATELETS & DIFFERENTIAL Routine 02/21/2025 [...] Discharge 01/18/2025 10:39 AM CDT Bilateral nephrolithiasis SNACK STEWARD COMPREHENSIVE SLEEP Routine 01/10/2025 7:34 AM CDT Snoring Daytime sleepiness Thoracic spina bifida, unspecified hydrocephalus presence (H) Chiari malformation type II (H) [place] INSERT INTRAUTERINE DEVICE Routine 12/14/2024 12:24 PM CDT Encounter for insertion of intrauterine contraceptive device GYNECOLOGIC CYTOLOGY Routine 09/13/2024 12:04 PM CDT Screening for cervical cancer from Last 3 Months or Most Recently Relevant to Health Maintenance Results * Xray Imaging - HIM Scan (03/03/2025 12:00 AM CDT) Anatomical Region Laterality Modality Other 03/03/2025 Provider Outside IMG DIAGNOSTIC IMAGING ORDERABL ES Final Result * Potassium (External Result) (03/01/2025 5:07 PM CDT) Potassium (External) 4.7 3.6 - 5.1 mmol/L [facility] Blood 03/01/2025 5:07 PM CDT Narrative [facility] - 03/01/2025 5:07 PM CDT [facility]- External Lab Results us Provider Outside LAB - HIM EXTERNAL RESULT Final Result Performing Organization Address [facility] Co de Phone Number [facility] [address] [place] [address], [facility] [phone] * (ABNORMAL) Glucose (External Result) (03/01/2025 3:59 AM CDT) Glucose (External) 109(A) 60 - 115 mg/dL [facility] Blood 03/01/2025 3:59 AM CDT [facility] - 03/01/2025 3:59 AM CDT [facility]- External Lab Results us Provider Outside LAB - HIM EXTERNAL RESULT Final Result Performing Organization Address [facility] de Phone Number [facility] [address] [place] [address], [facility] [phone] * Creatinine (External Result) (03/01/2025 3:59 AM CDT) Creatinine (External) 0.5 0.5 - 1.5 mg/dL [facility] Blood 03/01/2025 3:59 AM CDT [facility] - 03/01/2025 3:59 AM CDT [facility]- External Lab Results us Provider Outside LAB - HIM EXTERNAL RESULT Final Result Performing Organization Address [facility] de Phone Number [facility] [address] [place] [address], [facility] [phone] * (ABNORMAL) AST (External Result) (03/01/2025 3:59 AM CDT) AST (External) 36(A) 12 - 35 U/L [facility] Blood 03/01/2025 3:59 AM CDT [facility] - 03/01/2025 3:59 AM CDT [facility]- External Lab Results us Provider Outside LAB - HIM EXTERNAL RESULT Final Result Performing Organization Address [facility]/State/ZIP Co de Phone Number [facility] [address] [place] [address], [facility] [phone] * ALT (External Result) (03/01/2025 3:59 AM CDT) ALT (External) 27 4 - 35 U/L [facility] Blood 03/01/2025 3:59 AM CDT Narrative [facility] - 03/01/2025 3:59 AM CDT [facility]- External Lab Results us Provider Outside LAB - HIM EXTERNAL RESULT Final Result [facility] [address] [place], [place] [id number] [place] [address] * Lab Result - HIM Scan (03/01/2025 12:00 AM CDT) 03/01/2025 us Provider Outside NON-BEAKER LAB TESTING Final Result * CT Imaging - HIM Scan (03/01/2025 12:00 AM CDT) Anatomical Region Laterality Modality Computed Tomogra phy 03/01/2025 us Provider Outside IMG CT ORDERABLES Final Result * CBC with platelets and differential (02/21/2025 [...] LAB - BLOOD ORDERABLES Fin al Result [facility] Care Lab [address] Lab (1st floor, no room number) [place] [address] * Reticulocyte count (02/21/2025 11:26 AM [...] ORDERABLES Fin al Result Performing Organization Address [facility] Co de Phone Number [facility] [address] [facility] (1st floor, no room number) [place] [address] * Hepatic panel (Albumin, ALT, AST, [...] - BLOOD ORDERABLES Fin al Result LABORATORY [facility] Lab [address] [facility] Lab (1st floor, no room number) [place] [address] * (ABNORMAL) Basic metabolic panel (Ca, [...] - BLOOD ORDERABLES Fin al Result LABORATORY [facility] Acute Care Lab [address] Lab (1st floor, no room number) [place] [address], [facility] * (ABNORMAL) Urine Culture Aerobic Bacterial (02/21/2025 11:15 AM CDT) Pathologist [facility] Culture 50,000-100,000 CFU/mL Enterococcus faecalis(A) 02/24/2025 10:10 [...] and Susceptibility testing requested by Dr Joyner [phone] Multiple morphotypes present with no predominant organism. [...] LINDA <=0.12 ug/mL: Susceptible Klebsiella pneumoniae Nitrofurantoin LNIDA 64 ug/mL: Intermediate Klebsiella pneumoniae Trimethoprim/Sulfa methoxazol [...] Edited Result - Final [facility]U IDD LABORATORY [facility] Inf. Diseases Diag. Lab [address] [facility], [address] [place] [address], [facility] * XR Wrist Right G/E 3 Views [...] EXAM: CT ABDOMEN PELVIS W/O CONTRAST LOCATION: [facility] DATE: 01/18/2025 INDICATION: Bilateral nephrolithiasis COMPARISON: [...] EXAM: CT ABDOMEN PELVIS W/O CONTRAST LOCATION: [facility] DATE: 01/18/2025 INDICATION: Bilateral nephrolithiasis COMPARISON: [...] 5. Thoracolumbar posterior spinal fixation. us Onuralp Miriam VAZQUEZ IMG CT ORDERABLES Final Result * Comprehensive Sleep Study (01/10/2025 7:34 AM CDT) SNACK STEWARD Comprehensive Sleep BREEZE PFT 01/10/2025 7:34 AM [...] weighs 155.0 lbs. Her BMI is 32.5, Stem sleepiness scale6 and neck circumference is 38 [...] G47.33 Repetitive Intrusions Into Sleep F51.8 01/03/2025 [facility] Study (155.0 lbs) - AHI 6.2, RDI 9.3,Supine AHI 6.2, REM AHI 14.6, Low O2 76.0%, Time Spent <=88% 1.4 minutes /Time Spent <=89% 1.9 minutes. Electronically Signed By: Teja Blum MD 01/09/2025 us Sugey Mccoy ASSISTANT HEAD CASHIER DYNAMOMETER MECHANIC PROCEDURES Final Re sult [facility] PFT * Pap Screen Only - Recommended Age [...] component of this testing was completed at [facility]. Stain controls for all stains resulted within this report have been reviewed and show appropriate reactivity. 2024 1:59 PM CDT [facility] Brushing ENDOCERVICAL STRUCTURE / Unknown Non-blood Collection / Unknown 09/13/2024 12:04 PM CDT 09/13/2024 12:07 PM CDT us Heladio Willoughby MD LAB - JOHN AP Final Result [facility] [address] [facility] Building, Room [address] [place] [address] from Last 3 Months or Most Recently Relevant to Health Maintenance [place] Advance Directives For more information, please contact: [phone] Documents on File Type Date Recorded Patient College Director Expl anation Advance Directives and Living Will [...] patie nt/ legal decision maker Care Teams Hvac Design Mechanical Engineer Relationship Specialty [place] [address] [place] [address] PCP - General 03/05/23 Carlos Joyner MD [address] [place] [address] Urology 12/09/19 Jadon Murray MD [facility] [address] [facility] [address] [place] [address] Referring Physician Pediatric Surgery 12/09/19 Maru Villagomez, RN Registered Nurse 12/10/19 Ang Slade MD [address] [address] Urology 04/24/20 Carlos Joyner MD [address] [place] [address] Assigned Surgical Provider 12/24/20 Ang Slade MD [address] [place] [address] Urology 12/18/22 Lakshmi Wilhelm PA-C [address] [place] [address] Physician System Configuration Specialist Urology 02/03/23 [place] [address] [place] [address] Assigned PCP 02/06/23 Alissa Perez PA-C [address] [place] [address] 161145 Physician System Configuration Specialist Surgery 09/04/23 Lakshmi Wilhelm PA-C [address] [place] [address] 664355 Physician System Configuration Specialist Urology 09/16/23 Carlos Joyner MD [address] [place] [address] 767285 Urology 01/26/25 Jadon Floyd MD [address] [place] [address] 139275 Physician Physical Medicine and Rehabilitation 01/31/25 [place] [address] [place] [address] Assigned Musculoskeletal Provider 02/15/25 Tanisha Marlow [address] [facility] [address] 03/30/24
--- OUTSIDE RECORDS SUMMARY | 2025-03-12 19:30 | XMS_ITS | Encounter Summary ---
Author Organization [place] Address [address] [place] [address] Care Team Providers Care Ampoule Filler And Sealer Name Role Phone Carlos Joyner MD Unavailable [phone] Jadon Murray MD Unavailable [phone] Maru Villagomez RN Unavailable Unavailable Ignacia Duran MD Primary Care Provider [phone] Ang Slade MD Unavailable [phone] Carlos Joyner MD Unavailable [phone] Annalise Orta PA-C Unavailable [phone] Ang Slade MD Unavailable [phone] Lakshmi Wilhelm-C Unavailable [phone] Heladio Willoughby MD Primary Care Provider [phone] Heladio Willoughby MD Unavailable Alissa Perez PA-C Unavailable [phone] LaLakshmi morales-C Unavailable [phone] Aidee Valero PA-C Unavailable [phone] Carlos Joyner MD Unavailable [phone] Jadno Floyd MD Unavailable [phone] Cayden Bejarano MD Unavailable Encounter Details Date Type Department Care Team (Late st Contact Info) Description 09/17/2021 MyC Medical Advice [facility] Urology Clinic [address] 4th [place] [phone] Carlos Joyner MD [address] [place] [address] Social History Tobacco Use Types Packs/Day Years [...] Info) Description 03/23/2025 12:45 PM CDT Appointment [facility] Imaging [address] [facility] [address] [place] [phone] [place] [address] [facility] [address] [place] [address] 03/23/2025 1:30 PM CDT Hospital Encounter [facility] Imaging [address] [place] [address] [place] [address] [place] [address] 03/25/2025 10:20 AM CDT Virtual Visit [facility] [place] [address] [place] [address] [place] [address] [place] [address] 04/04/2025 12:00 PM ASSISTANT CROSS COUNTRY COACH Office Visit [facility] [place] [address] [place] [phone] Sugey Mccoy, SCOURING TRAIN OPERATOR CHIEF [facility] [address] [place] [address] [address] [place], [place] 313734 05/05/2025 9:00 AM ASSISTANT CROSS COUNTRY COACH Office Visit [facility] Physical Medicine and Rehabilitation Clinic [address] [place] [address] Jadon Floyd MD [address] [place] [address] 118065 05/30/2025 10:20 AM ASSISTANT CROSS COUNTRY COACH Appointment [facility] Imaging [address] [facility] [address] [place] [phone] Carlos Joyner MD [address] [place] [address] [phone] 05/31/2025 2:00 PM ASSISTANT CROSS COUNTRY COACH Virtual Visit [facility] [address] [place] [phone] Carlos Joyner MD [address] [place] [address] 885575 07/25/2025 11:00 AM ASSISTANT CROSS COUNTRY COACH Office Visit [facility] [address] [place] [address] [place] [address] [place] [address] documented as of this encounter Visit Diagnoses Not on filedocumented in this encounter Additional Health Concerns Infection Onset Date Last Indicated Resolved Time MRSA Comment:Added from external infection. Pt has had Staph infections but never MRSA from Care everywhere chart review. Removing MRSA 02.06.23 06/17/2019 02/06/2023 9:41 AM C DT documented as of this encounter Care Teams Ampoule Filler And Sealer Relationship Specialty Start Date End Date Ignacia Duran MD PCP - General Pediatrics 01/20/20 03/04/23 [place] [address] [place] [address] PCP - General 03/05/23 Carlos Joyner MD [address] [place] [address] 068305 Urology 12/09/19 Jadon Murray MD [facility] [address] [facility] [address] [place] [address] Referring Physician Pediatric Surgery 12/09/19 Maru Villagomez, RN Registered Nurse 12/10/19 Ang Slade MD 420 [facility] 394 [place], [place] 619475 Urology 04/24/20 Carlos Joyner MD [address] [place] [address] 014235 Assigned Surgical Provider 12/24/20 Annalise Orta PA-C 5200 [place] [address] Assigned Cancer Care Provider 05/13/21 11/01/22 Ang Slade MD [address] [place] [address] 216225 Urology 12/18/22 Lakshmi Wilhelm PA-C [address] [place] [address] Physician Senior Javascript Developer Urology 02/03/23 [place] [address] [place] [address] Assigned PCP 02/06/23 lAissa Perze PA-C [address] [place] [address] 587025 Physician Senior Javascript Developer Surgery 09/04/23 Laksmhi Wilhelm PA-C [address] [place] [address] 699795 Physician Senior Javascript Developer Urology 09/16/23 Aidee Valero PA-C [address] [place] [address] Assigned Musculoskeletal Provider 04/17/24 02/14/25 Carlos Joyner MD [address] [place] [address] Urology 01/26/25 Jadon Floyd MD [address] [place] [address] Physician Physical Medicine and Rehabilitation 01/31/25 [place] [address] [place] [address] Assigned Musculoskeletal Provider 02/15/25 Tanisha Marlow [facility] [facility] [phone] 03/30/24 documented as of this encounter
--- OUTSIDE RECORDS SUMMARY | 2025-03-12 19:30 | XMS_ITS | Encounter Summary ---
Author Organization [place] Address [address] [place] [address] Care Team Providers Care Business Change Manager Name Role Phone Carlos Joyner MD Unavailable [phone] Jadon Murray MD Unavailable [phone] Maru Villagomez RN Unavailable Unavailable Ignacia Duran MD Primary Care Provider [phone] Ang Slade MD Unavailable [phone] Carlos Joyner MD Unavailable [phone] Annalise Orta PA-C Unavailable [phone] Ang Slade MD Unavailable [phone] Lakshmi Wilhelm-C Unavailable [phone] Heladio Willoughby MD Primary Care Provider [phone] Heladio Willoughby MD Unavailable Alissa Perez PA-C Unavailable [phone] LaLakshmi morales-C Unavailable [phone] Aidee Valero PA-C Unavailable [phone] Carlos Joyner MD Unavailable [phone] Jadon Floyd MD Unavailable [phone] Cayden Bejarano MD Unavailable Encounter Details Date Type Department Care Team (Late st Contact Info) Description 07/31/2021 MyC Medical Advice [facility] Preoperative Assessment Center [address] 5th [place] [phone] Makenzie Drummond, RN Social History Tobacco Use [...] Info) Description 03/23/2025 12:45 PM CDT Appointment [facility] Imaging [address] [place] [address] [address] [place] [phone] [place]den [place] [address] [place] [address] [address] [place] [address] 03/23/2025 1:30 PM CDT Hospital Encounter [facility] Imaging [address] [place] [address] [place] [phone] [place] [address] [facility] [address] [place] [address] 03/25/2025 10:20 AM CDT Virtual Visit [facility] Medicine [facility] [place] [address] [place] [address] Drive [address] [place] [address] [place] [address] [place] [address] 04/04/2025 12:00 PM PROSTHODONTIST/EDUCATOR Office Visit [facility] Sleep Center [address] [phone] Sugey Mccoy, BRICK BURNER HEAD ASSISTANT ATHLETIC TRAINER [address] [place] [address] 05/05/2025 9:00 AM PROSTHODONTIST/EDUCATOR Office Visit [facility] Physical Medicine and Rehabilitation Clinic [address]rd [place] [address] Jadon Floyd MD [address] [place] [address] 05/30/2025 10:20 AM PROSTHODONTIST/EDUCATOR Appointment [facility] Imaging [address] [facility] [address] [place] [phone] Carlos Joyner MD [address] [place] [address] 05/31/2025 2:00 PM PROSTHODONTIST/EDUCATOR Virtual Visit [facility] Urology Clinic [address] [place] [address] Carlos Joyner MD [address] [place] [address] 188505 07/25/2025 11:00 AM PROSTHODONTIST/EDUCATOR Office Visit [facility] [address] [place] [address] Heladio [place] [address] [place] [address] documented as of this encounter Visit Diagnoses Not on filedocumented in this encounter Additional Health Concerns Infection Onset Date Last Indicated Resolved Time MRSA Comment:Added from external infection. Pt has had Staph infections but never MRSA from Care everywhere chart review. Removing MRSA 9.14.23 06/17/2019 02/06/2023 9:41 AM C DT documented as of this encounter Care Teams Business Change Manager Relationship Specialty Start Date End Date Ignacia Duran MD PCP - General Pediatrics 01/20/20 03/04/23 [place] [address] [facility] [place] [address] PCP - General 03/05/23 Carlos Joyner MD [address] [place] [address] Urology 12/09/19 Jadon Murray MD [facility] [address] [address] Referring Physician Pediatric Surgery 12/09/19 Maru Villagomez, OTILIO Registered Nurse 12/10/19 Ang Slade MD [address] [place] [address] Urology 04/24/20 Carlos Joyner MD [address] [place] [address] Assigned Surgical Provider 12/24/20 Annalise Orta PA-C 5200 [place] [address] Assigned Cancer Care Provider 05/13/21 11/01/22 Ang Slade MD [address] [place] [address] 426895 Urology 12/18/22 Lakshmi Wilhelm PA-C [address] [place] [address] 325675 Physician Computator Urology 02/03/23 [place] [address] [place] [address] Assigned PCP 02/06/23 Alissa Perez PA-C [address] [place] [address] 588845 Physician Computator Surgery 09/04/23 Lakshmi Wilhelm PA-C [address] [place] [address] 139435 Physician Computator Urology 09/16/23 Aidee Valero PA-C [address] [place] [address] 771565 Assigned Musculoskeletal Provider 04/17/24 02/14/25 Carlos Joyner MD [address] [place] [address] 830775 Urology 01/26/25 Jadon Floyd MD [address] [place] [address] 122135 Physician Physical Medicine and Rehabilitation 01/31/25 [place] [address] [place] [address] Assigned Musculoskeletal Provider 02/15/25 Tanisha Marlow 4[address] [facility] [address] 03/30/24 documented as of this encounter
--- OUTSIDE RECORDS SUMMARY | 2025-03-12 19:30 | XMS_ITS | Encounter Summary ---
Author Organization [place] Address [address] [place] [address] Care Team Providers Care Water Resources Project Manager Name Role Phone Carlos Joyner MD Unavailable [phone] Jadon Murray MD Unavailable [phone] Maru Villagomez RN Unavailable Unavailable Ang Slade MD Unavailable [phone] Carlos Joyner MD Unavailable [phone] Ang Slade MD Unavailable [phone] Lakshmi WilhelmC Unavailable [phone] Heladio Willoughby MD Primary Care Provider [phone] Heladio Willoughby MD Unavailable Alissa Perez PA-C Unavailable [phone] Lakshmi Wilhelm PA-C Unavailable [phone] Aidee Valero-C Unavailable [phone] Carlos Joyner MD Unavailable [phone] Encounter Details Date Type Department Care Team [...] Recorded PHQ-2 Score 0 09/13/2024 [facility] of Occupat [...] Info) Description 03/23/2025 12:45 PM CDT Appointment [facility] Imaging [address] [facility] [address] [place] [phone] [place] [address] [place] [address] 03/23/2025 1:30 PM CDT Hospital Encounter [facility] [address] [facility] [address] [place] [phone] Cayden Bejarano MD [address] [place] [address] [address] [place] [address] 03/25/2025 10:20 AM CDT Virtual Visit [facility] [place] [address] [place] [address] [address] [place] [address] [place] [address] [place] [address] 04/04/2025 12:00 PM WIRE DRAWING DIE MAKER Office Visit [facility] [address] [address] Sugey Mccoy, LAUNCH MANAGER [address] [address] 05/05/2025 9:00 AM WIRE DRAWING DIE MAKER Office Visit [facility] Physical Medicine and Rehabilitation Clinic [address] [place] [address] Jadon Floyd MD [address] [place] [address] 05/30/2025 10:20 AM WIRE DRAWING DIE MAKER Appointment [facility] Imaging [address] [place] [address] [place] [address] Carlos Joyner MD [address] [place] [address] 348525 05/31/2025 2:00 PM WIRE DRAWING DIE MAKER Virtual Visit [facility]rology Clinic [address] [place] [address] Carlos Joyner MD [address] [place] [address] 757785 07/25/2025 11:00 AM WIRE DRAWING DIE MAKER Office Visit [facility] [address] [place] [address] [place] [address] [place], [place] [phone] documented as of this encounter Visit Diagnoses Not on filedocumented in this encounter Care Teams Water Resources Project Manager Relationship Specialty Start [place] [address] [place] [address] PCP - General 03/05/23 Carlos Joyner MD [address] [place] [address] 885875 Urology 12/09/19 Jadon Murray MD [facility] [address] [facility] 550 [place] [address] Referring Physician Pediatric Surgery 12/09/19 Maru Villagomez, RN Registered Nurse 12/10/19 Ang Slade MD [address] [place] [address] 394 [place], [place] 006445 Urology 04/24/20 Carlos Joyner MD [address] [place] [address] [phone] Assigned Surgical Provider 12/24/20 Ang Slade MD [address] [place] [address] 394 [place], [place] [phone] Urology 12/18/22 Lakshmi Wilhelm PA-C [address] [place] [address] [phone] Physician Thermostat Mechanic Urology 02/03/23 [place] [address] [place] [address] Assigned PCP 02/06/23 Alissa Perez PA-C [address] [place] [address] 650085 Physician Thermostat Mechanic Surgery 09/04/23 aLkshmi Wilhelm PA-C [address] [place] [address] [phone] Physician Thermostat Mechanic Urology 09/16/23 Aidee Valero PA-C 909 [place], [place] 230925 Assigned Musculoskeletal Provider 04/17/24 02/14/25 Carlos Joyner MD 909 [place], [place] 468635 Urology 01/26/25 Tanisha Marlow 4120 [facility] [address] 03/30/24 documented as of this encounter
--- OUTSIDE RECORDS SUMMARY | 2025-03-12 19:30 | XMS_ITS | Encounter Summary ---
Author Organization [facility] Address [address] [place] [address] Care Team Providers Care Helicopter Specialist Name Role Phone Carlos Joyner MD Unavailable + [phone] Jadon Murray MD Unavailable +[phone] Maru Villagomez RN Unavailable Unavailable Ang Slade MD Unavailable +[phone] Carlos Joyner MD Unavailable +[phone] Ang Slade MD Unavailable +[phone] Lakshmi Wilhelm-C Unavailable +[phone] Heladio Willoughby MD Primary Care Provider +[phone] Heladio Willoughby MD Unavailable Alissa Perez PA-C Unavailable [phone] Lakshmi Wilhelm-C Unavailable +[phone] Aidee Valero PA-C Unavailable +[phone] Carlos Joyner MD Unavailable +[phone] Jadon Floyd MD Unavailable +[phone] Cayden Bejarano MD Unavailable Encounter Details Date Type Department Care Team (Late st Contact Info) Description 07/09/2024 [facility] [place] [address] [facility] 4th [place] [address] Hattie Wing, RN Social History [...] Info) Description 03/23/2025 12:45 PM CDT Appointment [facility] [address] [place] [address] [place] [address] [place] [address] 03/23/2025 1:30 PM CDT Hospital Encounter [facility] [address] [facility] [address] [place] [address] [place] [address] [place] [address] 03/25/2025 10:20 AM CDT Virtual Visit [facility] [place] [address] [place] [address] [place] [address] [place] [address] 04/04/2025 12:00 PM WATER TECHNICIAN Office Visit [facility] [address] [phone] Sugey Mccoy, FOUNDRY LABORER [place] [address] [place], [place] [address]454 05/05/2025 9:00 AM WATER TECHNICIAN Office Visit [facility] [address] 3rd [place] [address] Jadon Floyd MD [address] [place] [address] 357895 05/30/2025 10:20 AM WATER TECHNICIAN Appointment [facility] [address] [place] [address] Carlos Joyner MD [address] [place] [address] 163255 05/31/2025 2:00 PM WATER TECHNICIAN Virtual Visit [facility] [address] 4th [place] [address] Carlos Joyner MD [address] [place] [address] [phone] 07/25/2025 11:00 AM WATER TECHNICIAN Office Visit [facility] [address] [place] [phone] [place] [address] [place] [phone] documented as of this encounter Visit Diagnoses Not on filedocumented in this encounter Care Teams Helicopter Specialist Relationship Specialty [place] [address] [address] [place] [phone] PCP - General 03/05/23 Carlos Joyner MD [address] [place] [address] 49064 Urology 12/09/19 Jadon Murray MD [facility] [address] [facility] 550 [place] [address] Referring Physician Pediatric Surgery 12/09/19 Maru Villagomez, RN Registered Nurse 12/10/19 Ang Slade MD [address] [place] [address]27 Urology 04/24/20 Carlos Joyner MD [address] [place] [address] 755855 Assigned Surgical Provider 12/24/20 Ang Slade MD [address] [address] Urology 12/18/22 Lakshmi Wilhelm PA-C [address] [place] [address] 97623 Physician Non Categorical Preschool Teacher Urology 02/03/23 [place] [address] [place] [address] Assigned PCP 02/06/23 Alissa Perez PA-C [address] [place] [address] 21308 Physician Non Categorical Preschool Teacher Surgery 09/04/23 Lakshmi Wilhelm PA-C [address] [place] [address] 60537 Physician Non Categorical Preschool Teacher Urology 09/16/23 Aidee Valero PA-C [address] [place] [address] 922405 Assigned Musculoskeletal Provider 04/17/24 02/14/25 Carlos Joyner MD [address] [place] [address] 720555 Urology 01/26/25 Jadon Floyd MD [address] [place] [address] 405095 Physician Physical Medicine and Rehabilitation 01/31/25 [place] [address] [place] [address] Assigned Musculoskeletal Provider 02/15/25 Tanisha Marlow 4120 [facility] [id number] 03/30/24 documented as of this encounter
--- OUTSIDE RECORDS SUMMARY | 2025-03-12 19:30 | XMS_ITS | Encounter Summary ---
Author Organization [facility] Address [address] [place] [address]70 Care Team Providers Care Loading Manager Name Role Phone Carlos Joyner MD Unavailable +[phone] Jadon Murray MD Unavailable +[phone] Maru Villagomez RN Unavailable Unavailable Ang Slade MD Unavailable +[phone] Carlos Joyner MD Unavailable +[phone] Ang Slade MD Unavailable +[phone] Lakshmi Wilhelm-C Unavailable +[phone] Heladio Willoughby MD Primary Care Provider [phone] Heladio Willoughby MD Unavailable Alissa Perez PA-C Unavailable [phone] Lakshmi Wilhelm-C Unavailable +[phone] Aidee Valero PA-C Unavailable +[phone] Carlos Joyner MD Unavailable +[phone] Jadon Floyd MD Unavailable +[phone] Cayden Bejarano MD Unavailable Encounter Details Date Type Department Care Team (Late st Contact Info) Description 06/25/2023 [facility] [place] [address] [facility] 4th [place] [address] Carlos Joyner MD 909 [place] [address] Social History Tobacco Use Types Packs/Day Years [...] Description 03/23/2025 12:[address] [facility] [address] [facility] [address] [place] [address] [place] [address] [place] [address] 03/23/2025 1:30 PM CDT Hospital Encounter [facility] [address] [facility] [address] [place] [address] [place] [address] [place] [address] 03/25/2025 10:20 AM CDT Virtual Visit [facility] Sports Medicine [facility] [address] [facility] [address] [place] [address] [place] [address] [place] [address] 04/04/2025 12:00 PM INFORMATION ANALYST Office Visit [facility] Sleep [address] [phone] Sugey Mccoy, ASSISTANCE COORDINATOR [address] [phone] 05/05/2025 9:00 AM INFORMATION ANALYST Office Visit [facility] [address] [address] Jadon Floyd MD [address] [place] [address] 457995 05/30/2025 10:20 AM INFORMATION ANALYST Appointment [facility] [address] [facility] [address] [place] [address] Carlos Joyner MD [address] [place] [address] 998965 05/31/2025 2:00 PM INFORMATION ANALYST Virtual Visit [facility] Urology Clinic [address] [phone] Carlos Joyner MD 909 [place], [place] 459035 07/25/2025 11:00 AM INFORMATION ANALYST Office Visit [facility] [address] [place] [address] [place] [address] [place], [place] [phone] documented as of this encounter Visit Diagnoses Not on filedocumented in this encounter Care Teams Loading Manager Relationship Specialty [place] [address] [address] [place], [place] [phone] PCP - General 03/05/23 Carlos Joyner MD [address] [place] [address] 49273 Urology 12/09/19 Jadon Murray MD [facility] [address] [address] Referring Physician Pediatric Surgery 12/09/19 Maru Villagomez RN Registered Nurse 12/10/19 Ang Slade MD 420 [facility] 394 [place] [address] Urology 04/24/20 Carlos Joyner MD [address] [place] [address] 27198 Assigned Surgical Provider 12/24/20 Ang Slade MD [address] [place] [address] 84428 Urology 12/18/22 Lakshmi Wilhelm PA-C [address] [place] [address] 43916 Physician Brush Stainer Urology 02/03/23 [place] [address] [place] [address] Assigned PCP 02/06/23 Alissa Perez PA-C [address] [place] [address] 89815 Physician Brush Stainer Surgery 09/04/23 Lakshmi Wilhelm PA-C [address] [place] [address] 73365 Physician Brush Stainer Urology 09/16/23 Aidee Valero PA-C [address] [place] [address] 11208 Assigned Musculoskeletal Provider 04/17/24 02/14/25 Carlos Joyner MD [address] [place] [address] 88963 Urology 01/26/25 Jadon Floyd MD [address] [place] [address] 207955 Physician Physical Medicine and Rehabilitation 01/31/25 [place] [address] [place] [address] Assigned Musculoskeletal Provider 02/15/25 Tanisha Marlow 4120 [facility] [address] 03/30/24 documented as of this encounter
--- OUTSIDE RECORDS SUMMARY | 2025-03-12 19:31 | XMS_ITS | Encounter Summary ---
Author Organization [facility] Address [address] [place] [address] 6[address] Care Team Providers Care Melting Supervisor Name Role Phone Carlos Joyner MD Unavailable +[phone] Jadon Murray MD Unavailable +[phone] Maru Villagomez RN Unavailable Unavailable Ignacia Duran MD Primary Care Provider [phone] Ang Slade MD Unavailable +[phone] Carlos Joyner MD Unavailable +[phone] Annalise Orta PA-C Unavailable +[phone] Ang Slade MD Unavailable +[phone] Lakshmi Wilhelm-C Unavailable +[phone] Heladio Willoughby MD Primary Care Provider [phone] Heladio Willoughby MD Unavailable Alissa Perez PA-C Unavailable [phone] LaLakshmi morales-C Unavailable +[phone] Aidee Valero PA-C Unavailable +[phone] Carlos Joyner MD Unavailable +[phone] Jadon Floyd MD Unavailable [phone] Cayden Bejarano MD Unavailable Encounter Details Date Type Department Care Team (Late st Contact Info) Description 12/05/2021 MyC Medical Advice [facility] Urology Clinic [address] 4th [place] [address] Yancy Seo Social History Tobacco Use [...] 12:45 PM CDT Appointment [facility] [address] [place] [address] Cayden Bejarano MD [address] [place] [address] [address] [place] [address] 03/23/2025 1:30 PM CDT Hospital Encounter [facility] [address] [place] [address] Cayden Bejarano MD [address] [place], [place] [address]A[address] [place] [address] 03/25/2025 10:20 AM CDT Virtual Visit [facility] [place] [address] [place] [address] [place] [address] [place] [address] 04/04/2025 12:00 PM LINE SERVICE TECHNICIAN Office Visit [facility] [place] [address] [facility] [phone] Sugey Mccoy APRN [facility] [address] [place] [address] [place] [address] 05/05/2025 9:00 AM LINE SERVICE TECHNICIAN Office Visit [facility] [address] 3rd [place] [address] Jadon Floyd MD [address] [place] [address] 420275 05/30/2025 10:20 AM LINE SERVICE TECHNICIAN Appointment [facility] [address] [facility] [address] [place] [address] Carlos Joyner MD [address] [place] [address] 991575 05/31/2025 2:00 PM LINE SERVICE TECHNICIAN Virtual Visit [facility]rology Clinic [address] 4th [place] [address] Carlos Joyner MD [address] [place] [address] 557065 07/25/2025 11:00 AM LINE SERVICE TECHNICIAN Office Visit [facility] [address] [place] [address] [place] [address] [place] [address] documented as of this encounter Visit Diagnoses Not on filedocumented in this encounter Additional Health Concerns Infection Onset Date Last Indicated Resolved Time MRSA Comment:Added from external infection. Pt has had Staph infections but never MRSA from Care everywhere chart review. Removing MRSA 9.14.23 06/17/2019 02/06/2023 9:41 AM C DT documented as of this encounter Care Teams Melting Supervisor Relationship Specialty Start Date End Date Ignacia Duran MD PCP - General Pediatrics 01/20/20 03/04/23 [place] [address] [place] [address] PCP - General 03/05/23 Carlos Joyner MD [address] [place] [address]71 Urology 12/09/19 Jadon Murray MD [facility] [address] [address] Referring Physician Pediatric Surgery 12/09/19 Maru Villagomez, RN Registered Nurse 12/10/19 Ang Slade MD [address] [place] [address]36 Urology 04/24/20 Carlos Joyner MD [address] [place] [address] 64148 Assigned Surgical Provider 12/24/20 Annalise Orta PA-C 5200 [place] [address] Assigned Cancer Care Provider 05/13/21 11/01/22 Ang Slade MD [address] [address] Urology 12/18/22 Lakshmi Wilhelm PA-C [address] [place] [address] 57229 Physician Field Hand Urology 02/03/23 [place] [address] [facility] [place] [address] Assigned PCP 02/06/23 Alissa Perez PA-C [address] [place] [address] 451125 Physician Field Hand Surgery 09/04/23 Lakshmi Wilhelm PA-C [address] [place] [address] 00612 Physician Field Hand Urology 09/16/23 Aidee Valero PA-C [address] [place] [address] 893685 Assigned Musculoskeletal Provider 04/17/24 02/14/25 Carlos Joyner MD [address] [place] [address] 093375 Urology 01/26/25 Jadon Floyd MD [address] [place] [address] 634385 Physician Physical Medicine and Rehabilitation 01/31/25 [place] [address] [place] [address] Assigned Musculoskeletal Provider 02/15/25 Tanisha Marlow 4120 [facility] [address] 03/30/24 documented as of this encounter
--- OUTSIDE RECORDS SUMMARY | 2025-03-12 19:31 | XMS_ITS | Encounter Summary ---
Author Organization [facility] Address [address] [place] [address] Care Team Providers Care Car Ferry Captain Name Role Phone Carlos Joyner MD Unavailable +[phone] Jdaon Murray MD Unavailable +[phone] Maru Villagomez RN Unavailable Unavailable Ignacia Duran MD Primary Care Provider [phone] Ang Slade MD Unavailable +[phone] Carlos Joyner MD Unavailable +[phone] Annalise Orta PA-C Unavailable +[phone] Ang Slade MD Unavailable +[phone] Lakshmi Wilhelm-C Unavailable +[phone] Heladio Willoughby MD Primary Care Provider [phone] Heladio Willoughby MD Unavailable Alissa Perez PA-C Unavailable [phone] LaLakshmi morales-C Unavailable +[phone] Aidee Valero PA-C Unavailable +[phone] Carlos Joyner MD Unavailable +[phone] Jadon Floyd MD Unavailable [phone] Cayden Bejarano MD Unavailable Encounter Details Date Type Department Care Team (Late st Contact Info) Description 10/01/2021 MyC Medical Advice [facility] Clinic [address] 4th [place] [address] Carlos Joyner MD [address] [place] [address] Social History Tobacco Use Types Packs/Day Years [...] 12:45 PM CDT Appointment [facility] [address] [place] [address] Cayden Bejarano MD [address] [place] [address] [address] [place] [address] 03/23/2025 1:30 PM CDT Hospital Encounter [facility] [address] [place] [address] [place] [address] [address] [place] [address] 03/25/2025 10:20 AM CDT Virtual Visit [facility] Medicine [facility] [place] [address] [place] [address] Cayden [place] [address] [place] [address] [address] [place] [address] 04/04/2025 12:00 PM WASTE BALER Office Visit [facility] Sleep Center [place] [address] [place] [address] Sugey Mccoy, COKE PRODUCTION HEATER [facility] [address] [place] [address] [address] [place], [place] 439484 05/05/2025 9:00 AM WASTE BALER Office Visit [facility] Physical Medicine [facility] Rehabilitation Clinic [address] 3rd [place] [address] Jadon Floyd MD [address] [place] [address] 05/30/2025 10:20 AM WASTE BALER Appointment [facility] [address] [facility] [address] [place] [address] Carlos Joyner MD [address] [place] [address] 629195 05/31/2025 2:00 PM WASTE BALER Virtual Visit [facility]rology Clinic [address] 4th [place] [address] Carlos Joyner MD [address] [place] [address] 477705 07/25/2025 11:00 AM WASTE BALER Office Visit [facility] [address] [place] [address] [place] [address] [place] [address] documented as of this encounter Visit Diagnoses Not on filedocumented in this encounter Additional Health Concerns Infection Onset Date Last Indicated Resolved Time MRSA Comment:Added from external infection. Pt has had Staph infections but never MRSA from Care everywhere chart review. Removing MRSA 9.14.23 06/17/2019 02/06/2023 9:41 AM C DT documented as of this encounter Care Teams Car Ferry Captain Relationship Specialty Start Date End Date Ignacia Duran MD PCP - General Pediatrics 01/20/20 03/04/23 [place] [address] [place] [address] PCP - General 03/05/23 Carlos Joyner MD 9 [place] [address] Urology 12/09/19 Jadon Murray MD [facility] [address] [facility] 550 [place] [address] Referring Physician Pediatric Surgery 12/09/19 Maru Villagomez, RN Registered Nurse 12/10/19 Ang Slade MD [address] [address] Urology 04/24/20 Carlos Joyner MD [address] [place] [address] 57337 Assigned Surgical Provider 12/24/20 Annalise Orta PA-C [address] [place] [address] Assigned Cancer Care Provider 05/13/21 11/01/22 Ang Slade MD 420 [facility] 394 [place] [address] Urology 12/18/22 Lakshmi Wilhelm PA-C [address] [place] [address] 9[address]24 Physician Plugging Machine Operator Urology 02/03/23 [place] [address] [place] [address] Assigned PCP 02/06/23 Alissa Perez PA-C [address] [place] [address] 12283 Physician Plugging Machine Operator Surgery 09/04/23 Lakshmi Wilhelm PA-C [address] [place] [address] 35913 Physician Plugging Machine Operator Urology 09/16/23 Aidee Valero PA-C [address] [place] [address] 81682 Assigned Musculoskeletal Provider 04/17/24 02/14/25 Carlos Joyner MD [address] [place] [address] Urology 01/26/25 Jadon Floyd MD [address] [place] [address] 618105 Physician Physical Medicine and Rehabilitation 01/31/25 [place] [address] [place] [address] Assigned Musculoskeletal Provider 02/15/25 Tanisha Marlow 4120 [facility] [address] 03/30/24 documented as of this encounter
--- OUTSIDE RECORDS SUMMARY | 2025-03-12 19:31 | XMS_ITS | Encounter Summary ---
Author Organization [facility] Address [address] [place] [address] Care Team Providers Care Beer Merchant Name Role Phone Carlos Joyner MD Unavailable + [phone] Jadon Murray MD Unavailable +[phone] Maru Villagomez RN Unavailable Unavailable Ang Slade MD Unavailable +[phone] Carlos Joyner MD Unavailable +[phone] Ang Slade MD Unavailable [phone] Lakshmi Wilhelm-C Unavailable +[phone] Heladio Willoughby MD Primary Care Provider [phone] Heladio Willoughby MD Unavailable Alissa Perez PA-C Unavailable [phone] Lakshmi Wilhelm-C Unavailable +[phone] Aidee Valero PA-C Unavailable +[phone] Carlos Joyner MD Unavailable + [phone] Jadon Floyd MD Unavailable +[phone] Cayden Bejarano MD Unavailable Encounter Details Date Type Department Care Team (Late st Contact Info) Description 09/08/2023 [facility] [address] [address] Luis M-Bhavna Milligan Social History [...] Info) Description 03/23/2025 12:45 PM CDT Appointment [facility] [address] [place] [address] [place] [address] [place] [address] 03/23/2025 1:30 PM CDT Hospital Encounter [facility] [address] [facility] [address] [place] [address] [place] [address] [place] [address] 03/25/2025 10:20 AM CDT Virtual Visit [facility] Medicine [facility] [place] [address] [place] [address] [place] [address] [place] [address] 04/04/2025 12:00 PM DAMPENER Office Visit [facility] [address] [place] [phone] Sugey Mccoy, ELECTRONICS TECHNICIAN APPRENTICE [facility] [address] [place] [address] 106 [place] [address] 05/05/2025 9:00 AM DAMPENER Office Visit [facility] Physical Medicine [facility] Rehabilitation Clinic [address]rd [place] [phone] Jadon Floyd MD [address] [place] [address] 853365 05/30/2025 10:20 AM DAMPENER Appointment [facility] [address] [place] [address] Carlos Joyner MD [address] [place] [address] 093385 05/31/2025 2:00 PM DAMPENER Virtual Visit [facility] Urology Clinic [address] 4th [place] [address] Carlos Joyner MD [address] [place] [address] [phone] 07/25/2025 11:00 AM DAMPENER Office Visit [facility] [place] [address] [address] [phone] [place] [address] [address] [place] [phone] documented as of this encounter Visit Diagnoses Not on filedocumented in this encounter Care Teams Beer Merchant Relationship Specialty [place] [address] [address] [phone] PCP - General 03/05/23 Carlos Joyner MD [address] [place] [address]267 Urology 12/09/19 Jadon Murray MD [facility] 2530 [facility] 550 [place] [address] Referring Physician Pediatric Surgery 12/09/19 Maru Villagomez, RN Registered Nurse 12/10/19 Ang Slade MD [address] [place] [address] 18101 Urology 04/24/20 Carlos Joyner MD [address] [place] [address] 39058 Assigned Surgical Provider 12/24/20 Ang Slade MD [address] [address] Urology 12/18/22 Lakshmi Wilhelm PA-C [address] [place] [address] 30102 Physician Cook Cold Meat Urology 02/03/23 [place] [address] [place] [address] Assigned PCP 02/06/23 Alissa Perez PA-C [address] [place] [address] 24363 Physician Cook Cold Meat Surgery 09/04/23 Lakshmi Wilhelm PA-C [address] [place] [address] 13373 Physician Cook Cold Meat Urology 09/16/23 Aidee Valero PA-C [address] [place] [address] 898515 Assigned Musculoskeletal Provider 04/17/24 02/14/25 Carlos Joyner MD [address] [place] [address] 483525 Urology 01/26/25 Jadon Floyd MD [address] [place] [address]195 Physician Physical Medicine and Rehabilitation 01/31/25 [place] [address] [place] [address] Assigned Musculoskeletal Provider 02/15/25 Tanisha Marlow 4120 [facility] [id number] 03/30/24 documented as of this encounter
--- OUTSIDE RECORDS SUMMARY | 2025-03-12 19:31 | XMS_ITS | Encounter Summary ---
Author Organization [place] Address [address] [place] [address] Care Team Providers Care Lumber Stacker Driver Name Role Phone Carlos Joyner MD Unavailable +[phone] Jadon Murray MD Unavailable +[phone] Maru Villagomez RN Unavailable Unavailable Ignacia Duran MD Primary Care Provider +[phone] Ang Slade MD Unavailable +[phone] Carlos Joyner MD Unavailable +[phone] Annalise Orta PA-C Unavailable +[phone] Ang Slade MD Unavailable +[phone] Lakshmi Wilhelm-C Unavailable +[phone] Heladio Willoughby MD Primary Care Provider +[phone] Heladio Willoughby MD Unavailable Alissa Perez PA-C Unavailable [phone] LaLakshmi morales-C Unavailable +[phone] Aidee Valero PA-C Unavailable +[phone] Carlos Joyner MD Unavailable +[phone] Jadon Floyd MD Unavailable [phone] Cayden Bejarano MD Unavailable Encounter Details Date Type Department Care Team (Late st Contact Info) Description 10/02/2021 MyC Medical Advice [facility] Urology Clinic [address] 4th [place] [address] Analisa Palacio RN Social History [...] Appointment [facility] Imaging [address] [place] [address] Cayden [place]jar[place] [address] [place] [address] 03/23/2025 1:30 PM CDT Hospital Encounter [facility] Imaging [address] [place] [address] Cayden Bejar[place] [address] [place] [address] 03/25/2025 10:20 AM CDT Virtual Visit [facility] Sports Medicine [facility] [place] [address] [place] [address] [place] [address] [address] [place] [address] 04/04/2025 12:00 PM SHIFT SUPERVISOR RN Office Visit [facility] Sleep [facility] [place] [address] [facility] [place] [phone] Sugey Mccoy APRN [facility] [address] [place] [address] 05/05/2025 9:00 AM SHIFT SUPERVISOR RN Office Visit [facility] Physical Medicine and Rehabilitation Clinic [address] 3rd [place] [address] Jadon Floyd MD [address] [place] [address] 936435 05/30/2025 10:20 AM SHIFT SUPERVISOR RN Appointment [facility] Imaging [address] [facility] [address] [place] [address] Carlos Joyner MD [address] [place] [address] 261925 05/31/2025 2:00 PM SHIFT SUPERVISOR RN Virtual Visit [facility] Urology Clinic [address]th [place] [address] Carlos Joyner MD [address] [place] [address] 044645 07/25/2025 11:00 AM SHIFT SUPERVISOR RN Office Visit [facility] [address] [place] [address] [place] [address] [place] [address] documented as of this encounter Visit Diagnoses Not on filedocumented in this encounter Additional Health Concerns Infection Onset Date Last Indicated Resolved Time MRSA Comment:Added from external infection. Pt has had Staph infections but never MRSA from Care everywhere chart review. Removing MRSA 9.14.23 06/17/2019 02/06/2023 9:41 AM C DT documented as of this encounter Care Teams Lumber Stacker Driver Relationship Specialty Start Date End Date Ignacia Duran MD PCP - General Pediatrics 01/20/20 03/04/23 [place] [address] [place] [address] PCP - General 03/05/23 Carlos Joyner MD [address] [place] [address] Urology 12/09/19 Jadon Murray MD [facility] [address] [address] Referring Physician Pediatric Surgery 12/09/19 Maru Villagomez, OTILIO Registered Nurse 12/10/19 Ang Slade MD [address] [place] [address] Urology 04/24/20 Carlos Joyner MD [address] [place] [address] 32474 Assigned Surgical Provider 12/24/20 Annalise Orta PA-C 5200 [place] [address] Assigned Cancer Care Provider 05/13/21 11/01/22 Ang Slade MD [address] [place] [address] Urology 12/18/22 Lakshmi Wilhelm PA-C [address] [place] [address] Physician Circus Hand Urology 02/03/23 [place] [address] [place] [address] Assigned PCP 02/06/23 Alissa Perez PA-C [address] [place] [address] Physician Circus Hand Surgery 09/04/23 Lakshmi Wilhelm PA-C [address] [place] [address] Physician Circus Hand Urology 09/16/23 Aidee Valero PA-C [address] [place] [address] 993565 Assigned Musculoskeletal Provider 04/17/24 02/14/25 Carlos Joyner MD [address] [place] [address] 233395 Urology 01/26/25 Jadon Floyd MD [address] [place] [address] 360465 Physician Physical Medicine and Rehabilitation 01/31/25 [place] [address] [place] [address] Assigned Musculoskeletal Provider 02/15/25 Tanisha Marlow 4120 [facility] [address] 03/30/24 documented as of this encounter
--- OUTSIDE RECORDS SUMMARY | 2025-03-12 19:31 | XMS_ITS | Encounter Summary ---
Author Organization [place] Address [address] [place] [address] Care Team Providers Care Hvac Technician Residential Name Role Phone Carlos Joyner MD Unavailable [phone] Jadon Murray MD Unavailable +[phone] Maru Villagomez RN Unavailable Unavailable Ignacia Duran MD Primary Care Provider [phone] Ang Slade MD Unavailable +[phone] Carlos Joyner MD Unavailable +[phone] Annalise Orta PA-C Unavailable +[phone] Ang Slade MD Unavailable [phone] Lakshmi Wilhelm-C Unavailable +[phone] Heladio Willoughby MD Primary Care Provider [phone] Heladio Willoughby MD Unavailable Alissa Perez PA-C Unavailable [phone] LaLakshmi morales-C Unavailable +[phone] Aidee Valero PA-C Unavailable [phone] Carlos Joyner MD Unavailable +[phone] Jadon Floyd MD Unavailable [phone] Cayden Bejarano MD Unavailable Encounter Details Date Type Department Care Team (Late st Contact Info) Description 12/18/[address] [facility] Urology Clinic [address] 4th [place] [address] Carlos Joyner MD [address] [place] [address] Social History Tobacco Use Types Packs/Day Years [...] PM CDT Appointment [facility] Imaging [address] [facility] [address] [place] [phone] [place] [address] [address] [place] [address] 03/23/2025 1:30 PM CDT Hospital Encounter [facility] Imaging [address] [place] [address] [place] [address] [address] [place] [address] 03/25/2025 10:20 AM CDT Virtual Visit [facility] Sports Medicine Clinic Driver [address] [place] [address] [place] [address] [address] [place] [address] 04/04/2025 12:00 PM TEA PLANTATION WORKER Office Visit [facility] Sleep [facility] [place] [address] [place] [address] Sugey Mccoy, FLIGHT PHYSICIAN [facility] [address] [facility] [address] [place], [place] [address] 05/05/2025 9:00 AM TEA PLANTATION WORKER Office Visit [facility] Physical Medicine and Rehabilitation Clinic [address]rd [place] [phone] Jadon Floyd MD [address] [place] [address] 807575 05/30/2025 10:20 AM TEA PLANTATION WORKER Appointment [facility] Imaging [address] [facility] [address] [place] [address] Carlos Joyner MD [address] [place] [address] 324385 05/31/2025 2:00 PM TEA PLANTATION WORKER Virtual Visit [facility] Urology Clinic [address]th [place] [address] Carlos Joyner MD [address] [place] [address] 219825 07/25/2025 11:00 AM TEA PLANTATION WORKER Office Visit [facility] [address] [place] [address] [place] [address] [place] [address] documented as of this encounter Visit Diagnoses Not on filedocumented in this encounter Additional Health Concerns Infection Onset Date Last Indicated Resolved Time MRSA Comment:Added from external infection. Pt has had Staph infections but never MRSA from Care everywhere chart review. Removing MRSA 02.06.23 06/17/2019 02/06/2023 9:41 AM C DT documented as of this encounter Care Teams Hvac Technician Residential Relationship Specialty Start Date End Date Ignacia Duran MD PCP - General Pediatrics 01/20/20 03/04/23 [place] [address] [place] [address] PCP - General 03/05/23 Carlos Joyner MD 909 [place] [address] Urology 12/09/19 Jadon Murray MD [facility] 2530 [facility] 550 [place] [address] Referring Physician Pediatric Surgery 12/09/19 Maru Villagomez, RN Registered Nurse 12/10/19 Ang Slade MD 420 [facility] 394 [place], [place] 476115 Urology 04/24/20 Carlos Joyner MD [address] [place] [address] 883935 Assigned Surgical Provider 12/24/20 Annalise Orta PA-C 5200 [place] [address] Assigned Cancer Care Provider 05/13/21 11/01/22 Ang Slade MD [address] [place] [address] Urology 12/18/22 Lakshmi Wilhelm PA-C [address] [place] [address]32 Physician Foreign Language Stenographer Urology 02/03/23 [place] [address] [place] [address] Assigned PCP 02/06/23 Alissa Perez PA-C [address] [place] [address] Physician Foreign Language Stenographer Surgery 09/04/23 Lakshmi Wilhelm PA-C [address] [place] [address] 31323 Physician Foreign Language Stenographer Urology 09/16/23 Aidee Valero PA-C [address] [place] [address] 88[address] Assigned Musculoskeletal Provider 04/17/24 02/14/25 Carlos Joyner MD [address] [place] [address] Urology 01/26/25 Jadon Floyd MD [address] [place] [address] 730295 Physician Physical Medicine and Rehabilitation 01/31/25 [place] [address] [place], [place] 934[address] Assigned Musculoskeletal Provider 02/15/25 Tanisha Marlow [address] [place] [address] 03/30/24 documented as of this encounter
--- OUTSIDE RECORDS SUMMARY | 2025-03-12 19:31 | XMS_ITS | Encounter Summary ---
Author Organization [place] Address [address] [place] [address] Care Team Providers Care Borderer Name Role Phone Carlos Joyner MD Unavailable [phone] Jadon Murray MD Unavailable [phone] Maru Villagomez RN Unavailable Unavailable Ang Slade MD Unavailable [phone] Carlos Joyner MD Unavailable + [phone] Ang Slade MD Unavailable [phone] Lakshmi Wilhelm-C Unavailable [phone] Heladio Willoughby MD Primary Care Provider [phone] Heladio Willoughby MD Unavailable Alissa Perez PA-C Unavailable [phone] Lakshmi Wilhelm-C Unavailable [phone] Aidee Valero PA-C Unavailable +[phone] Carlos Joyner MD Unavailable + [phone] Jadon Floyd MD Unavailable [phone] Cayden Bejarano MD Unavailable Encounter Details Date Type Department Care Team (Late st Contact Info) Description 08/18/2023 [facility] Medical [address] [address] Conner, Analisa Social History Tobacco [...] 03/23/2025 12:45 PM CDT Appointment [facility] Imaging [address] [place] [address] [place] [address] [place] [address] [place] [address] 03/23/2025 1:30 PM CDT Hospital Encounter [facility] [address] [facility] [address] [place] [address] [place] [address] [place] [address] 03/25/2025 10:20 AM CDT Virtual Visit [facility] Sports Medicine [facility] [place] [address] [facility] [address] [place] [address] [place] [address] [place] [address] 04/04/2025 12:00 PM PRODUCTION PATTERN MAKER Office Visit [facility] Sleep [address] [phone] Sugey Mccoy, ORACLE DATABASE ANALYST [address] 609504 05/05/2025 9:00 AM PRODUCTION PATTERN MAKER Office Visit [facility] Physical Medicine and Rehabilitation Clinic [address] 3rd [place] [address] Jadon Floyd MD [address] [place] [address] 330035 05/30/2025 10:20 AM PRODUCTION PATTERN MAKER [facility]ointment [facility] Imaging [address] [facility] [address] [place] [address] Carlos Joyner MD [address] [place] [address] 966595 05/31/2025 2:00 PM PRODUCTION PATTERN MAKER Virtual Visit [facility] Urology Clinic [address]th [place] [address] Carlos Joyner MD [address] [place] [address] 31344455 07/25/2025 11:00 AM PRODUCTION PATTERN MAKER [facility] [address] [place] [phone] [place] [address] [address] [place] [phone] documented as of this encounter Visit Diagnoses Not on filedocumented in this encounter Care Teams Borderer Relationship Specialty Start [place] [address] [address] [place] [phone] PCP - General 03/05/23 Carlos Joyner MD [address] [place] [address] Urology 12/09/19 Jadon Murray MD [facility] [address] [facility] 550 [place] [address] Referring Physician Pediatric Surgery 12/09/19 Maru Villagomez, RN Registered Nurse 12/10/19 Ang Slade MD [address] [address] Urology 04/24/20 Carlos Joyner MD [address] [place] [address] 030005 Assigned Surgical Provider 12/24/20 Ang Slade MD [address] [address] Urology 12/18/22 Lakshmi Wilhelm PA-C [address] [place] [address] 22344 Physician Motorbike Courier Urology 02/03/23 [place] [address] [facility] [place] [address] Assigned PCP 02/06/23 Alissa Perez PA-C [address] [place] [address]171 Physician Motorbike Courier Surgery 09/04/23 Lakshmi Wilhelm PA-C [address] [place] [address] Physician Motorbike Courier Urology 09/16/23 Aidee Valero PA-C [address] [place] [address]000 Assigned Musculoskeletal Provider 04/17/24 02/14/25 Carlos Joyner MD [address] [place] [address] Urology 01/26/25 Jadon Floyd MD [address] [place] [address]193 Physician Physical Medicine and Rehabilitation 01/31/25 [place] [address] [place] [address] Assigned Musculoskeletal Provider 02/15/25 Tanisha Marlow 4120 [facility] [address] 03/30/24 documented as of this encounter
--- OUTSIDE RECORDS SUMMARY | 2025-03-12 19:31 | XMS_ITS | Encounter Summary ---
Author Organization [place] Address [address] [place] [address] Care Team Providers Care Tax Accountant Name Role Phone Carlos Joyner MD Unavailable [phone] Jadon Murray MD Unavailable [phone] Maru Villagomez RN Unavailable Unavailable Ignacia Duran MD Primary Care Provider [phone] Ang Slade MD Unavailable +[phone] Carlos Joyner MD Unavailable +[phone] Annalise Orta PA-C Unavailable +[phone] Ang Slade MD Unavailable +[phone] Lakshmi Wilhelm-C Unavailable +[phone] Heladio Willoughby MD Primary Care Provider +[phone] Heladio Willoughby MD Unavailable Alissa Perez PA-C Unavailable [phone] LaLakshmi morales-C Unavailable +[phone] Aidee Valero PA-C Unavailable +[phone] Carlos Joyner MD Unavailable +[phone] Jadon Floyd MD Unavailable [phone] Cayden Bejarano MD Unavailable Encounter Details Date Type Department Care Team (Late st Contact Info) Description 10/12/2021 MyC Medical Advice [facility] Preoperative Assessment [facility] [place] 0[address] [facility] 5th [place] [address] Tanisha Coe PA-C [address] [place] [address] Social History Tobacco Use Types Packs/Day Years [...] Info) Description 03/23/2025 12:45 PM CDT Appointment [facility] Imaging [address] [place] [address] [place] [address] [place] [address] 03/23/2025 1:30 PM CDT Hospital Encounter [facility] Imaging [address] [place] [address] [place] [address] [place] [address] [facility] [address] [address] [place] [address] 03/25/2025 10:20 AM CDT Virtual Visit [facility] Sports Medicine [facility] [place] [address] [place] [address] [place] [address] [place] [address] 04/04/2025 12:00 PM SALES PLANNER Office Visit [facility] Sleep [facility] [place] [address] [place] [phone] Sugey Mccoy, DESIGN MAINTENANCE ENGINEER [facility] [address] [place] [address] [address] [place], [place] [address] 05/05/2025 9:00 AM SALES PLANNER Office Visit [facility] Physical Medicine and Rehabilitation Clinic [address] 3rd [place] [address] Jadon Floyd MD [address] [place] [address] 05/30/2025 10:20 AM SALES PLANNER Appointment [facility] [address] [facility] [address] [place] [address] Carlos Joyner MD [address] [place] [address] 908005 05/31/2025 2:00 PM SALES PLANNER Virtual Visit [facility] Urology Clinic [address]th [place] [phone] Carlos Joyner MD [address] [place] [address] 546865 07/25/2025 11:00 AM SALES PLANNER Office Visit [address] [address] [place] [address] [place] [address] documented as of this encounter Visit Diagnoses Not on filedocumented in this encounter Additional Health Concerns Infection Onset Date Last Indicated Resolved Time MRSA Comment:Added from external infection. Pt has had Staph infections but never MRSA from Care everywhere chart review. Removing MRSA 9.14.23 06/17/2019 02/06/2023 9:41 AM C DT documented as of this encounter Care Teams Tax Accountant Relationship Specialty Start Date End Date Ignacia Duran MD PCP - General Pediatrics 01/20/20 03/04/23 [place] [address] [facility] [place] [address] PCP - General 03/05/23 Carlos Joyner MD 909 [place] [address] Urology 12/09/19 Jadon Murray MD [facility] 2530 [facility] 550 [place] [address] Referring Physician Pediatric Surgery 12/09/19 Maru Villagomez, RN Registered Nurse 12/10/19 Ang Slade MD [address] [address] Urology 04/24/20 Carlos Joyner MD [address] [place] [address]297 Assigned Surgical Provider 12/24/20 Annalise Orta PA-C 5200 [facility] [place] [address] Assigned Cancer Care Provider 05/13/21 11/01/22 Ang Slade MD 420 [facility] 394 [place] [address] Urology 12/18/22 Lakshmi Wilhelm PA-C [address] [place] [address] Physician Entry Level Accounting Clerk Urology 02/03/23 [place] [address] [place] [address] Assigned PCP 02/06/23 Alissa Perez PA-C [address] [place] [address]291 Physician Entry Level Accounting Clerk Surgery 09/04/23 Lakshmi Wilhelm PA-C [address] [place] [address] Physician Entry Level Accounting Clerk Urology 09/16/23 Aidee Valero PA-C [address] [place] [address] Assigned Musculoskeletal Provider 04/17/24 02/14/25 Carlos Joyner MD [address] [place] [address] Urology 01/26/25 Jadon Floyd MD [address] [place] [address] 059225 Physician Physical Medicine and Rehabilitation 01/31/25 [place] [address] [place] [address] Assigned Musculoskeletal Provider 02/15/25 Tanisha Marlow 4120 [facility] [address] 03/30/24 documented as of this encounter
--- OUTSIDE RECORDS SUMMARY | 2025-03-12 19:31 | XMS_ITS | Encounter Summary ---
Author Organization [facility] Address [address] [place] [address] Care Team Providers Care Java Lead Engineer Name Role Phone Carlos Joyner MD Unavailable [phone] Jadon Murray MD Unavailable [phone] Maru Villagomez RN Unavailable Unavailable Ang Slade MD Unavailable [phone] Carlos Joyner MD Unavailable [phone] Ang Slade MD Unavailable [phone] Lakshmi Wilhelm-C Unavailable +[phone] Heladio Willoughby MD Primary Care Provider [phone] Heladio Willoughby MD Unavailable Alissa Perez PA-C Unavailable [phone] Lakshmi Wilhelm-C Unavailable [phone] Aidee Valero PA-C Unavailable [phone] Carlos Joyner MD Unavailable [phone] Jadon Floyd MD Unavailable [phone] Cayden Bejarano MD Unavailable Encounter Details Date Type Department Care Team (Late st Contact Info) Description 09/18/2023 [facility] [place] [id number] [facility] 4th [place] [address] Carlos Joyner MD [address] [place] [address] Social History Tobacco Use Types Packs/Day Years [...] Info) Description 03/23/2025 12:45 PM CDT Appointment [facility] [address] [place] [address] [place] [address] [place] [address] 03/23/2025 1:30 PM CDT Hospital Encounter [facility] [address] [place] [address] [place] [address] [place] [address] 03/25/2025 10:20 AM CDT Virtual Visit [facility] [address] [place] [address] [place] [address] [place] [address] 04/04/2025 12:00 PM CIVIL DEFENSE DIRECTOR Office Visit [facility] [address] [phone] Sugey Mccoy, NURSE COMPANION [address] 013284 05/05/2025 9:00 AM CIVIL DEFENSE DIRECTOR Office Visit [facility] [address] [address] Jadon Floyd MD [address] [place] [address] 274915 05/30/2025 10:20 AM CIVIL DEFENSE DIRECTOR Appointment [facility] [address] [place] [address] Carlos Joyner MD [address] [place] [address] 750175 05/31/2025 2:00 PM CIVIL DEFENSE DIRECTOR Virtual Visit [facility] [address] [phone] Carlos Joyner MD [address] [place], [place] 946[address] 07/25/2025 11:00 AM CIVIL DEFENSE DIRECTOR Office Visit [facility] [address] [place] [address] [place] [address] [place], [place] [phone] documented as of this encounter Visit Diagnoses Not on filedocumented in this encounter Care Teams Java Lead Engineer Relationship Specialty Start [place] [address] [address] [place], [place] [phone] PCP - General 03/05/23 Carlos Joyner MD [address] [place] [address] Urology 12/09/19 Jadon Murray MD [facility] [address] [address] Referring Physician Pediatric Surgery 12/09/19 Maru Villagomez RN Registered Nurse 12/10/19 Ang Slade MD [address] [facility] [address] [place] [address] Urology 04/24/20 Carlos Joyner MD [address] [place] [address] Assigned Surgical Provider 12/24/20 Ang Slade MD [address] [place] [address] Urology 12/18/22 Lakshmi Wilhelm PA-C [address] [place] [address] Physician Stove Carriage Operator Urology 02/03/23 [place] [address] [place] [address] Assigned PCP 02/06/23 Alissa Perez PA-C [address] [place] [address] Physician Stove Carriage Operator Surgery 09/04/23 Lakshmi Wilhelm PA-C [address] [place] [address] Physician Stove Carriage Operator Urology 09/16/23 Aidee Valero PA-C [address] [place] [address] Assigned Musculoskeletal Provider 04/17/24 02/14/25 Carlos Joyner MD [address] [place] [address] Urology 01/26/25 Jadon Floyd MD [address] [place] [address] 671395 Physician Physical Medicine and Rehabilitation 01/31/25 [place] [address] [place] [address] Assigned Musculoskeletal Provider 02/15/25 Tanisha Marlow 4120 [facility] [address] 03/30/24 documented as of this encounter
--- OUTSIDE RECORDS SUMMARY | 2025-03-12 19:31 | XMS_ITS | Encounter Summary ---
Author Organization [facility] Address [address] [place] [address] Care Team Providers Care Echometer Engineer Name Role Phone Carlos Joyenr MD Unavailable [phone] Jadon Murray MD Unavailable [phone] Maru Villagomez RN Unavailable Unavailable Ignacia Duran MD Primary Care Provider [phone] Ang Slade MD Unavailable [phone] Carlos Joyner MD Unavailable +[phone] Annalise Orta PA-C Unavailable [phone] Ang Slade MD Unavailable [phone] Lakshmi Wilhelm-C Unavailable [phone] Heladio Willoughby MD Primary Care Provider [phone] Heladio Willoughby MD Unavailable Alissa Perez PA-C Unavailable [phone] LaLakshmi morales-C Unavailable [phone] Aidee Valero PA-C Unavailable [phone] Carlos Joyner MD Unavailable +[phone] Jadon Floyd MD Unavailable [phone] Cayden Bejarano MD Unavailable Encounter Details Date Type Department Care Team (Late st Contact Info) Description 11/07/[address] [facility] [address] 4th [place] [address] Analisa Palacio RN Social History [...] PM CDT Appointment [facility] [address] [facility] [address] [place] [phone] Cayden Bejarano MD [address] [place] [address] [address] [place] [address] 03/23/2025 1:30 PM CDT Hospital Encounter [facility] [address] [place] [address] Cayden Bejarano MD [address] [place], [place] [address]A[address] [place] [address] 03/25/2025 10:20 AM CDT Virtual Visit [facility] [place] [address] [place] [address] Cayden Bejarano MD [address] [place] [address] [address] [place] [address] 04/04/2025 12:00 PM GRINDER OPERATOR TOOL Office Visit [facility] [address] [facility] [place] [phone] Sugey Mccoy APRN [facility] [address] [place] [address] [place] [address] 05/05/2025 9:00 AM GRINDER OPERATOR TOOL Office [facility] [address] [place] [address] Jadon Floyd MD [address] [place] [address] 316095 05/30/2025 10:20 AM GRINDER OPERATOR TOOL Appointment [facility] [address] [facility] [address] [place] [address] Carlos Joyner MD [address] [place] [address] 824465 05/31/2025 2:00 PM GRINDER OPERATOR TOOL Virtual Visit [facility] [address] [place] [address] Carlos Joyner MD [address] [place] [address] 212225 07/25/2025 11:00 AM GRINDER OPERATOR TOOL Office Visit [facility] [address] [place] [address] [place] [address] [place] [address] documented as of this encounter Visit Diagnoses Not on filedocumented in this encounter Additional Health Concerns Infection Onset Date Last Indicated Resolved Time MRSA Comment:Added from external infection. Pt has had Staph infections but never MRSA from Care everywhere chart review. Removing MRSA 9.14.23 06/17/2019 02/06/2023 9:41 AM C DT documented as of this encounter Care Teams Echometer Engineer Relationship Specialty Start Date End Date Ignacia Duran MD PCP - General Pediatrics 01/20/20 03/04/23 [place] [address] [place] [address] PCP - General 03/05/23 Carlos Joyner MD [address] [place] [address] Urology 12/09/19 Jadon [facility] MD [facility] [address] [address] Referring Physician Pediatric Surgery 12/09/19 Maru Villagomez, RN Registered Nurse 12/10/19 Ang Slade MD [address] [place] [address] Urology 04/24/20 Carlos Joyner MD [address] [place] [address] Assigned Surgical Provider 12/24/20 Annalise Orta PA-C [address] [place] [address] Assigned Cancer Care Provider 05/13/21 11/01/22 Ang Slade MD [address] [address] Urology 12/18/22 Lakshmi Wilhelm PA-C [address] [place] [address] Physician Journeyman Power Plant Operator Urology 02/03/23 [place] [address] [facility] [place] [address] Assigned PCP 02/06/23 Alissa Perez PA-C [address] [place] [address]85 Physician Journeyman Power Plant Operator Surgery 09/04/23 Lakshmi Wilhelm PA-C [address] [place] [address] Physician Journeyman Power Plant Operator Urology 09/16/23 Aidee Valero PA-C [address] [place] [address] [phone] Assigned Musculoskeletal Provider 04/17/24 02/14/25 Carlos Joyner MD [address] [place] [address] [id number] Urology 01/26/25 Jadon Floyd MD [address] [place] [address] 869025 Physician Physical Medicine and Rehabilitation 01/31/25 [place] [address] [place] [address] Assigned Musculoskeletal Provider 02/15/25 Tanisha Marlow 4[address] [facility] [address] 03/30/24 documented as of this encounter
--- OUTSIDE RECORDS SUMMARY | 2025-03-12 19:31 | XMS_ITS | Patient Health Record ---
Author Organization [facility] Address [facility] [address] [address] [place] [address] Care Team Providers Care Contact Center Director Name Role Phone Ignacia Duran MD Primary Care Provider [phone] ADOLFO PAZ MD Reason For Referral No Information Medications Medication SIG (Take, Route, Fr equency, Duration) Notes Start Date End Date Status Gentamicin Sulfate 40 MG/ML Gent 400mg in 1000 ML NS 0.9% for irrigation 30ML QHS Intravesically BID; Duration: 30 days 12/30/2019 Active Social History Social History PSA Social History Social Info Question Answer Notes SMOKING STATUS 13Y AND OLDER Are you a: Non-Smoker Education: Is the Child in School? Yes What Grade? 7th Additional Details Category Social Info Options Details PSA Social History Child Lives At: Home Child Lives With: Mother,Other Day Care No Siblings 3 Alcohol/Drugs? No Activities / Interests? 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 Problem Acute pyonephrosis (866234598) Acute pyonephrosis (N13.6) Active confirmed Problem Obesity (494491065) Obesity (BMI 30-39.9) (E66.9) Active confirmed Problem Lumbar spina bifida with hydrocephalus (847987794) Spina bifida of lumbosacral region with 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) Active confirmed Problem Acute pyelonephritis (29918022) Acute pyelonephritis (N10) Active confirmed Problem Sepsis (83833383) Sepsis, due to unspecified organism (A41.9) Active confirmed Problem Kidney stone (99743329) Bilateral nephrolithiasis (N20.0) Active confirmed Plan Of Treatment Pending Test Test Name Order Date UDS- Flow, ru, EMG, CMG w/UA/UC and mario tion 12/02/2019 Insurance Providers Payer Name Payer Address Payer Phone Subscriber Number Group Number Insured Name Patient Relationship to Insured Coverage Start Date Coverage End Date [facility] [address] [address] [place] [address] [id number] Fe Escudero Child - Insured has Financial Responsibility [employer] [employer] [address] [address] [place] [address] [id number] Laina Escudero Self - patient is the insured
[2025-03-12 19:47] VITALS: BP 124/98; PULSE 82; RESP 20; TEMP 36.8; O2SAT 94
--- NOTE | 2025-03-12 20:18 | ED.GENADULT ---
HPI - General Adult General Time Seen by Provider: 20:18 Date Seen: 03/12/25 Chief complaint: Cough Stated complaint: Low O? Painful coughs Time Seen by Provider: 03/12/25 20:17 Source: patient and RN notes reviewed Mode of arrival: ambulatory Limitations: no limitations History of Present Illness HPI narrative: Laina is a 24-year-old female with T10 paraplegia, spina bifida and neurogenic bladder accompanied by her caregiver who comes to the emergency room with ongoing cough after recent hospitalization for pneumonia Who returns to the ER with concerns regarding ongoing cough, oxygen saturations that dropped to 86% at night as well as abdominal pain. Patient was hospitalized from 03/01 through 03/04 for aspiration pneumonia and acute hypoxic respiratory failure. She was initially treated with Zosyn and erythromycin and then discharged home on amoxicillin. During that time she had a negative triple swab, Legionella strep antigens and negative MRSA screen. She required supplemental oxygen but was weaned off to room air on 03/04/2025. She notes that she has never completely quit coughing and recently it has gotten worse. She has not had fever or chills. She does note that an aunt has a nebulizer and she has had some improvement with that but she herself does not have a home neb. she denies a runny nose or sore throat. Her caregiver states that she does have home oxygen to use at night if she goes below 89%. Her caregiver is concerned because at 2 in the morning she will sometimes have oxygen levels at 86% off the oxygen. Her caregiver also noted is continued coughing overnight. Patient also complains of abdominal pain. It is much worse when she is coughing. This seems to be in her left upper abdomen. I do question her caregiver about any recent sores and she does have sores on her back. caregiver is not noted any other new areas of concern. She is currently in her wheelchair and thus will be asking nursing staff to move her to a more comfortable bed. Laina has neurogenic bladder As well as horseshoe kidney and self catheterizes at home. Unfortunately she did have a complicated UTI on 02/25/2025 treated with Bactrim. On 03/01/2025 she had did have a positive UA but no growth in the urine culture. She does take Lithostat as an outpatient. She eats a regular diet and does not have a colostomy. She gets around in a electric wheelchair. Related Data Home Medications ?Medication ?Instructions ?Recorded ?Confirmed oxybutynin chloride 5 mg tablet 5 mg PO BID 07/21/22 03/01/25 indapamide 1.25 mg tablet 1.25 mg PO QAM 10/31/23 03/01/25 potassium chloride 10 mEq 10 meq PO BID 10/31/23 03/01/25 tablet,extended release(part/cryst) acetohydroxamic acid 250 mg tablet 250 mg PO Q8H 03/01/25 03/01/25 (Lithostat) sulfamethoxazole 800 tab PO 03/01/25 mg-trimethoprim 160 mg tablet Previous Rx's ?Medication ?Instructions ?Recorded ondansetron 4 mg disintegrating 4 mg PO Q8H PRN nausea and 07/19/24 tablet vomiting #10 tabs amoxicillin 500 mg tablet 1,000 mg (2 x 500 mg) PO Q8H 3 03/04/25 days #18 tabs albuterol sulfate 2.5 mg/3 mL 2.5 mg (3 mL) inhalation Q4-6H PRN 03/13/25 (0.083 %) solution for nebulization #75 mL Allergies Allergy/AdvReac Type Severity Reaction Status Date / Time ibuprofen Allergy Intermediate 1 Kidney Verified 03/12/25 23:04 vancomycin Allergy Intermediate Swapnil Verified 03/12/25 23:04 Syndrome latex Allergy Mild Rash Verified 03/12/25 23:04 Review of Systems Status of ROS: Reports: 10 or more systems reviewed and unremarkable except as noted in History and below Const: Reports: fatigue; Denies: fever or chills Eyes: Denies: change in vision ENMT: Denies: throat pain, neck pain or nasal congestion Cardio: Denies: chest pain or lightheadedness Resp: Reports: cough GI: Reports: abdominal pain; Denies: nausea, vomiting or diarrhea Musculo: Denies: neck pain or extremity pain Integ/Breast: Reports: sores Neuro: Denies: headache Endo: Reports: fatigue PFSH PFSH Medical History Depression ?F32.A - Depression, unspecified (ICD-10) Paraplegia ?G82.20 - Paraplegia, unspecified (ICD-10) Horseshoe kidney ?Q63.1 - Lobulated, fused and horseshoe kidney (ICD-10) Mild intellectual disability ?F70 - Mild intellectual disabilities (ICD-10) Neurogenic bladder ?N31.9 - Neuromuscular dysfunction of bladder, unspecified (ICD-10) COVID-19 ?U07.1 - COVID-19 (ICD-10) Spina bifida ?Q05.9 - Spina bifida, unspecified (ICD-10) Surgical History History of spinal fusion ?Z98.1 - Arthrodesis status (ICD-10) H/O wisdom tooth extraction ?K08.409 - Partial loss of teeth, unspecified cause, unspecified class (ICD-10) Hx of nephrolithotomy with removal of calculi ?Z98.890 - Other specified postprocedural states (ICD-10) ?Z87.442 - Personal history of urinary calculi (ICD-10) S/P UTILITY HELICOPTER REPAIRER shunt ?Z98.2 - Presence of cerebrospinal fluid drainage device (ICD-10) Family History Father Diabetes Mother Bipolar 1 disorder Social History What is your current living situation?: I presently have a place to live Problems where you live: no known problems Problems where you live details: no known problems In the past 12 months, utilities in danger of being shut off: unable to answer In past 12 months, lack of transportation kept you from medical appts, meetings, work, or getting things needed for daily living: unable to answer In the past 12 mos, have been you worried that your food would run out before you had money to buy more?: unable to answer In the past 12 mos, the food you bought just didn't last and you didn't have money to buy more?: unable to answer Highest level of school completed/degree received: high school graduate Smoking Status: Never smoker Do you use any of these nicotine containing products: None Second hand tobacco smoke exposure: No How often do you have a drink containing alcohol: never How often do you have six or more drinks on one occasion: Never AUDIT-C Alcohol total score: 0 Non-prescribed substance use: denies use Caffeine: Yes (Coffee) How often does anyone, including family, friends and others, physically hurt you: unable to answer How often does anyone, including family, friends and others, insult or talk down to you: unable to answer How often does anyone, including family, friends and others, threaten you with harm: unable to answer How often does anyone, including family, friends and others, scream or curse at you: unable to answer service: No Exam Narrative: Exam Narrative: Alert and oriented. Persistent coughing. Somewhat distractible with exam. Eyes are clear. Neck is supple. No lymphadenopathy. Oral cavity with moist mucous membranes. No erythema noted. Heart with a regular rate and rhythm. Left lung base with decreased breath sounds and crackles in the mid aspect. Right lung with decreased breath sounds in the base only. Abdomen shows tenderness noted in the left upper quadrant. No mass palpated. Lower extremities without any sores or unusual Will transfer patient from wheelchair to bed in order to complete remainder of exam. Patient noted to be log-rolled. On the left upper buttock skin fold she has superficial skin breakdown noted to be without significant drainage. This involves a dime-size lesion on the lower aspect of the fold and a silver dollar size lesion on the upper aspect. This was covered. She has a superficial linear skin lesion on her left buttock without evidence of surrounding erythema. Const: Vital Signs, click to edit/add: Vital Signs - 24 hr 03/12/25 19:47 03/12/25 20:40 03/12/25 21:04 Temperature 98.2 F Pulse Rate Pulse Rate [Left P ulse Oximeter] 82 74 Respiratory Rate 20 20 Blood Pressure Blood Pressure [Le ft Forearm] 124/98 H 119/58 L Pulse Oximetry 94 92 92 Oxygen Delivery Me thod Room Air Room Air 03/12/25 22:00 03/12/25 23:00 03/12/25 23:54 Temperature Pulse Rate 98 Pulse Rate [Left P ulse Oximeter] 98 89 Respiratory Rate 20 Blood Pressure Blood Pressure [Le ft Forearm] 124/76 Pulse Oximetry 94 92 92 Oxygen Delivery Me thod Room Air Room Air 03/13/25 00:01 03/13/25 00:03 03/13/25 00:03 Temperature Pulse Rate 103 H 110 H 110 H Pulse Rate [Left P ulse Oximeter] Respiratory Rate Blood Pressure 148/117 H 148/117 H Blood Pressure [Le ft Forearm] Pulse Oximetry 81 L 93 93 Oxygen Delivery Me thod 03/13/25 00:03 03/13/25 00:03 03/13/25 00:15 Temperature Pulse Rate 110 H 110 H 107 H Pulse Rate [Left P ulse Oximeter] Respiratory Rate Blood Pressure 148/117 H 148/117 H Blood Pressure [Le ft Forearm] Pulse Oximetry 93 93 87 L Oxygen Delivery Me thod 03/13/25 00:32 Temperature Pulse Rate Pulse Rate [Left P ulse Oximeter] Respiratory Rate Blood Pressure 111/78 Blood Pressure [Le ft Forearm] Pulse Oximetry Oxygen Delivery Me thod Documenting provider has reviewed patient's vital signs: yes Course Course ED Course: Differential diagnosis includes but is not limited to recurrent or persistent aspiration pneumonia, bronchospasm, UTI, musculoskeletal strain, patient in her chair with O2 saturations 88 to 92%. At home reports of 86%. According to notes patient has very small veins. Nursing staff will be using ultrasound attempt to place IV and obtain labs to include CBC, comprehensive, lipase, lactate, CRP. Will obtain urinalysis place patient on oximetry and obtained chest x-ray. Reevaluation(s) Reevaluation #1: Patient noted to be improved after DuoNeb. O2 sats consistently 92-93%. Coughing seems to be improved as well. White count normal, CRP 2.0. Lactate is normal. No evidence of sepsis. Urinalysis without evidence of UTI. LFTs and lipase within normal limits. Vital Signs Vital signs: Initial Vital Signs Temperature 98.2 F 03/12/25 19:47 Temperature Source Temporal Artery Scan 03/12/25 19:47 Pulse Rate 82 03/12/25 19:47 Respiratory Rate 20 03/12/25 19:47 Blood Pressure 124/98 H 03/12/25 19:47 Blood Pressure Mean 106 H 03/12/25 19:47 Blood Pressure Position Sitting 03/12/25 19:47 Pulse Oximetry 94 03/12/25 19:47 Oxygen Delivery Method Room Air 03/12/25 19:47 Vital Signs Temperature 98.2 F 03/12/25 19:47 Pulse Rate 82 03/12/25 19:47 Respiratory Rate 20 03/12/25 19:47 Blood Pressure 124/98 H 03/12/25 19:47 Pulse Oximetry 94 03/12/25 19:47 Oxygen Delivery Method Room Air 03/12/25 19:47 Temperature 98.2 F 03/12/25 19:47 Pulse Rate 107 H 03/13/25 00:15 Respiratory Rate 20 03/12/25 22:00 Blood Pressure 111/78 03/13/25 00:32 Pulse Oximetry 87 L 03/13/25 00:15 Oxygen Delivery Method Room Air 03/12/25 23:00 Medications Administered Medications: Discontinued Medications Generic Name Dose Route Start Last Admin Trade Name Kenny PRN Reason Stop Dose Admin Albuterol/Ipratropium 1 neb 03/12/25 20:28 03/12/25 20:48 Iprat-Albut 0.5-2.5 Mg/3 Ml Neb IH 03/12/25 20:29 1 neb ONCE ONE Administration Medical Decision Making MDM Narrative Medical decision making narrative: Early inpatient stay because of her hypoxia, auscultatory findings and complaints of worsening symptoms I suspected that she may need to be admitted as an inpatient. However during her time here after her DuoNeb her oxygen levels improved and she did not require any oxygen. I do think she is able to safely discharged home at this time. 1. Pneumonia-this is resolving on x-ray and CT. Her white count is normal. Notes from her visit here suggest antibiotics continuing for 7 days after discharge but I was able to find pharmacy note and discharge instructions that indicated she only received amoxicillin 1 g t.i.d. for an additional 3 days upon her discharge. She would have finished this medication on March 07. Given the fact that has been 5 days and her white count remains normal as well as reassuring radiology studies I do not feel she will need to receive any additional antibiotics at this moment. If she has fever, worsening symptoms we may need to restart antibiotics. I hesitate to do that at this time as patient will likely receive many antibiotics over her lifetime and I would want to avoid complications such as C diff. 2. Hypoxia-much improved after DuoNeb. Patient does not usually do nebulizers. She does note that her aunt has a nebulizer machine. We will send home 2 vials of albuterol 2.5 mg/3 mL to be used if needed for increased coughing or if oxygen levels drop below 89%. I do think this will help Laina clear her airways. Additional albuterol was sent to her pharmacy. I would like spot checks tonight of this patient's oxygen levels. If persistently below 89% would ask them to return to the ER. Patient does not have her own oxygen at home. It appears that in the past she has had her on oxygen but her tank ran out and thus she had been using her aunts. A problem with this is that her aunt's take may also run out. It does sound like the oxygen is in the form of a tank and not a concentrator. Plan again if Angelina has low oxygen she is to return to the ER for evaluation and potential admission. She should not be using her aunt's supply. 3. History of UTI-while CT suggests some inflammation of the bladder her urine appears to be clear. Will await urine culture. We had initially placed a Fernandez catheter as we thought patient would be admitted. We will now removed this prior to discharge. 4. Abdominal pain-this appears to be musculoskeletal as CT is reassuring. Suggest Tylenol as needed for discomfort. 5. Disposition-home with caregiver at this time. Return to the emergency room for persistent oxygen levels below 89%. Albuterol nebulizer every 4 hours as needed for cough or difficulty breathing. Medical Records Medical records reviewed: Yes I reviewed the patient's medical records Lab Data Lab results reviewed: Yes I reviewed the patient's lab results Labs: Lab Results 03/12/25 03/12/25 03/12/25 Range/Units 21:02 21:24 22:00 WBC 10.14 (4.50-11.00) K/uL RBC 4.80 (4.00-5.20) m/uL Hgb 14.5 (12.0-16.0) gm/dL Hct 43.7 (33.0-51.0) % MCV 91 (80-100) fL MCH 30 (26-34) pg MCHC 33 (32-36) gm/dL RDW Coeff of Kimber 13.2 (11.5-15.5) % Plt Count 249 (140-440) K/uL Neut % (Auto) 66.6 (42.0-72.0) % Lymph % (Auto) 22.7 (20-44) % [place] % (Auto) 9.6 (0.0-11.0) % Eos % (Auto) 0.7 (0.0-7.0) % Baso % (Auto) 0.1 (0.0-3.0) % Neut # (Auto) 6.76 (1.7-7.0) K/uL Lymph # (Auto) 2.30 (0.90-2.90) K/uL [place] # (Auto) 1.00 H (0.00-0.90) K/UL Eos # (Auto) 0.07 (0.00-0.50) K/uL Baso # (Auto) 0.01 (0.00-0.30) K/uL Abs Immat Gran (auto) 0.03 (0.00-0.30) K/uL Imm/Tot Granulo (auto) 0.3 % Sodium 133 L (135-149) mmol/L Potassium 3.9 (3.6-5.1) mmol/L Chloride 103 (96-114) mmol/L Carbon Dioxide 21 (20-32) mmol/L Anion Gap 9 (7-15) mEq/L BUN 21 (5-24) mg/dL Creatinine 0.6 (0.5-1.5) mg/dL Estimated GFR 130 ml/min Glucose 99 (60-115) mg/dL Lactate 1.5 (0.5-1.9) mmol/L Calcium 9.0 (8.4-10.6) mg/dL Total Bilirubin 0.6 (0.1-1.5) mg/dL AST 22 (12-35) U/L ALT 27 (4-35) U/L Alkaline Phosphatase 83 (40-150) U/L C-Reactive Protein 2.0 H (0.5-1.0) mg/dL Total Protein 7.5 (6.0-8.3) g/dL Albumin 3.9 (3.3-5.0) g/dL Lipase 82 (23-300) U/L Urine Color Yellow (Yellow) Urine Appearance Clear (Clear) Urine pH 5.5 (5.0-8.5) Ur Specific [place] >= 1.030 (1.000-1.030) Urine Protein Negative (Negative) Urine Glucose (UA) Negative (Negative) Urine Ketones Negative (Negative) Urine Blood Negative (Negative) Urine Nitrite Negative (Negative) Urine Bilirubin Negative (Negative) Urine Urobilinogen 0.2 (0.2-1.0) Ur Leukocyte Esterase Negative (Negative) Urine RBC 0-2 (0-2) Urine WBC 2-5 (0-5) Ur Squamous Epith Cells Few (None-Few) Urine Bacteria None (None) Imaging Data Chest x-ray: Attestation: I have reviewed the pertinent imaging results. Radiologist's impression: Stable cardiomediastinal silhouette and pulmonary vasculature. Mild interval improvement in right lower lobe consolidation. Mild prominence of the central interstitial lung markings, likely accentuated due to lung hypoinflation. No significant layering pleural effusion. No pneumothorax. Partially visualized thoracolumbar spine fixation. No acute osseous abnormality. Prominent air-filled colon in the upper abdomen, similar to prior studies. Ventriculoperitoneal shunt tubing noted. IMPRESSION: Mild interval improvement in right lower lobe consolidation since prior study. CT Chest/Ab/Pelvis: Attestation: I have reviewed the pertinent imaging results. Radiologist's impression: Cardiovascular structures: No cardiomegaly or pericardial effusion. Main pulmonary artery normal in caliber. No thoracic aortic aneurysm. Mediastinum and asaf: No suspicious lymphadenopathy. Lungs and pleura: Right lower lobe consolidation, decreased compared to prior. No pleural effusion or pneumothorax. Patent central airways. Chest wall and axilla: No suspicious chest wall mass or fluid collection. Presumed UTILITY HELICOPTER REPAIRER shunt within the superficial soft tissues of the right chest wall. Bones: No acute abnormality. ABDOMEN AND PELVIS: Liver: Unremarkable. Gallbladder and bile ducts: Unremarkable. Pancreas: Unremarkable. Spleen: Unremarkable. Adrenal glands: Unremarkable. Kidneys and bladder: Horseshoe kidney. Moderate bilateral hydronephrosis likely increased compared to prior. Grossly unchanged positioning of bilateral renal calculi. No significant hydroureter. No definite obstructing calculi. Circumferential bladder wall thickening with intraluminal bladder gas. Fernandez catheter noted. GI tract: No bowel obstruction. No suspicious bowel wall thickening. Moderate colonic stool burden. No CT evidence of acute appendicitis. Vascular structures: No abdominal aortic aneurysm. Grossly patent vasculature. Lymph nodes: No suspicious lymphadenopathy. Peritoneum/Retroperitoneum/Abdominal Wall: No ascites or pneumoperitoneum. Presumed UTILITY HELICOPTER REPAIRER shunt catheter within the superficial soft tissues of the right abdominal wall terminating within the pelvis. Pelvic Organs: Intrauterine device grossly in satisfactory position. Right adnexal cyst/dominant follicle measuring 2.8 cm. Bones and superficial soft tissues: Postoperative changes of the spine. Grossly unchanged presumed fat necrosis within the left gluteal/hip soft tissues. Fatty atrophy of visualized paraspinal and gluteal/lower extremity musculature. IMPRESSION: 1. Moderate bilateral hydronephrosis, likely increased compared to prior exam. Grossly unchanged positioning of bilateral renal calculi. No significant hydroureter. No definite obstructing calculus identified. 2. Circumferential bladder wall thickening may be exaggerated by underdistention, however clinical correlation recommended to exclude cystitis. 3. Moderate colonic stool burden. 4. Decreased right lower lobe pulmonary consolidation, likely reflecting improving pneumonia. Discharge Plan Discharge Clinical Impression: Pneumonia, Cough, Musculoskeletal pain Patient Disposition: Home w/ Parent or Adult Condition: Improved Additional Instructions: Nebulizer seemed to have helped quite a bit. Have seen a improvement in oximetry and oxygen levels. Will send albuterol home along with the equipment. You may use your family member's nebulizer machine. I would do this every 4 hours as needed for coughing, breathing difficulty or low oxygen levels. If resting comfortably and oxygen levels are normal you do not need to wake up to do this treatment. Contact the oxygen company as soon as you can. If oxygen levels are persistently below 89% you will need to return to the ER for evaluation The pneumonia appears to be improving on imaging. I suggest that we hold off on antibiotics at this time because the white count is normal and you have no fever. However, I a.m. concerned about worsening symptoms. I am hopeful that the nebulizer will help open your airways and allow you to clear some mucus. If you start running a fever, oxygen levels are dropping and you start feeling worse please return to the ER. You may need to go back on antibiotics. You may use Tylenol as needed for discomfort. Return to the emergency room for worsening symptoms and as needed. Prescriptions: New albuterol sulfate 2.5 mg /3 mL (0.083 %) solution for nebulization 2.5 mg inhalation Q4-6H PRNQty: 75 0RF No Action oxybutynin chloride 5 mg tablet 5 mg PO BID indapamide 1.25 mg tablet 1.25 mg PO QAM potassium chloride 10 mEq tablet,ER particles/crystals 10 meq PO BID sulfamethoxazole-trimethoprim 800-160 mg tablet PO Lithostat 250 mg tablet 250 mg PO Q8H Rx Instructions: SPECIALTY PHARMACY MEDICATION, PATIENT WILL NEED TO HAVE HOME SUPPLY BROUGHT TO HOSPITAL amoxicillin 500 mg tablet 1,000 mg PO Q8H 3 Days Qty: 18 0RF Rx Instructions: 3 more days to complete a full week of antibiotic therapy for PNA ondansetron 4 mg tablet,disintegrating 4 mg PO Q8H PRN (Reason: nausea and vomiting) Qty: 10 0RF Follow Up/Referrals: Ignacia Duran MD [Primary Care Provider, Pediatrics] Stand Alone Forms: [employer] Interactive Info Instructions
--- NOTE | 2025-03-12 20:28 | CRLHL7_ITS ---
For Patients: As a result of the Cures Act, medical imaging exams and procedure reports are released immediately into your electronic medical record. You may view this report before your referring provider. If you have questions, please contact your health care provider. INDICATION: Cough. TECHNIQUE: Chest 1 view(s) COMPARISON: Chest radiograph dated 03/03/2025. FINDINGS: Stable cardiomediastinal silhouette and pulmonary vasculature. Mild interval improvement in right lower lobe consolidation. Mild prominence of the central interstitial lung markings, likely accentuated due to lung hypoinflation. No significant layering pleural effusion. No pneumothorax. Partially visualized thoracolumbar spine fixation. No acute osseous abnormality. Prominent air-filled colon in the upper abdomen, similar to prior studies. Ventriculoperitoneal shunt tubing noted. IMPRESSION: Mild interval improvement in right lower lobe consolidation since prior study. Dictated by Georgiana Dozier MD @ 03/12/2025 8:59:03 PM (Electronically Signed)
--- OUTSIDE RECORDS SUMMARY | 2025-03-12 20:39 | XMS_ITS | Encounter Summary ---
Author Organization [place] Address [address] [place] [id number] Care Team Providers Care Web Assistant Name Role Phone Carlos Joyner MD Unavailable [phone] Jadon Murray MD Unavailable [phone] Maru Villagomez RN Unavailable Unavailable Ang Slade MD Unavailable [phone] Carlos Joyner MD Unavailable [phone] Ang Slade MD Unavailable [phone] Lakshmi WilhelmC Unavailable [phone] Heladio Willoughby MD Primary Care Provider [phone] Heladio Willoughby MD Unavailable Alissa Perez PA-C Unavailable [phone] Lakshmi Wilhelm PA-C Unavailable [phone] Aidee Valero-C Unavailable [phone] Carlos Joyner MD Unavailable [phone] Encounter Details Date Type Department Care Team [...] than three times a week 07/16/2024 Attends [employer] Services Not on file 07/16 Active Member of Clubs or Organizations Not on f ile 07/16/2024 Attends Club or Organization Meetings Not on antelmo e 07/16/2024 Marital Status Not on file 07/16/2024 PHQ-2 Answer Date Recorded PHQ-2 Score 0 09/13/2024 [facility] [...] CDT Appointment [facility] [address] [facility] [address] [place] [phone] [place] [address] [place] [address] 03/23/2025 1:30 PM CDT Hospital Encounter [facility] [address] [facility] [place] [phone] Cayden Bejarano MD [address] [place] [address] [address] [place] [address] 03/25/2025 10:20 AM CDT Virtual Visit [facility] [place] [address] [place] [address] [address] [place] [address] [place] [address] [place] [address] 04/04/2025 12:00 PM DOCUMENT IMAGE TECHNICIAN Office Visit [facility] [address] [address] Sugey Mccoy, CURTAIN FITTER [address] [address] 05/05/2025 9:00 AM DOCUMENT IMAGE TECHNICIAN Office Visit [facility] [address] [place] [phone] Jadon Floyd MD [address] [place] [address] 05/30/2025 10:20 AM DOCUMENT IMAGE TECHNICIAN Appointment [facility] [address] [place] [phone] Carlos Joyner MD [address] [place] [address] [id number] 05/31/2025 2:00 PM DOCUMENT IMAGE TECHNICIAN Virtual Visit [facility] [address] [place] [phone] Carlos Joyner MD [address] [place] [address] [id number] 07/25/2025 11:00 AM DOCUMENT IMAGE TECHNICIAN Office Visit [facility] [address] [place] [address] [place] [address] [place], [place] [phone] documented as of this encounter Visit Diagnoses Not on filedocumented in this encounter Care Teams Web Assistant Relationship Specialty Start [place] [address] [place] [address] PCP - General 03/05/23 Carlos Joyner MD [address] [place] [address] [id number] Urology 12/09/19 aJdon Murray MD [facility] [address] [facility] [address] [place] [address] Referring Physician Pediatric Surgery 12/09/19 Maru Villagomez, RN Registered Nurse 12/10/19 Ang Slade MD [address] [place] [address] [address] [place], [place] [phone] Urology 04/24/20 Carlos Joyner MD [address] [place] [address] [phone] Assigned Surgical Provider 12/24/20 Ang Slade MD [address] [place] [address] [address] [place], [place] [phone] Urology 12/18/22 Lakshmi Wilhelm PA-C [address] [place] [address] [id number] Physician Clinic Administrator Urology 02/03/23 [place] [address] [place] [address] Assigned PCP 02/06/23 Alissa Perez PA-C [address] [place] [address] [id number] Physician Clinic Administrator Surgery 09/04/23 Lakshmi Wilhelm PA-C [address] [place] [address] [id number] Physician Clinic Administrator Urology 09/16/23 Aidee Valero PA-C [address] [place], [place] [phone] Assigned Musculoskeletal Provider 04/17/24 02/14/25 Carlos Joyner MD [address] [place], [place] 3158[address] Urology 01/26/25 Tanisha Marlow [address] [facility] [address] 03/30/24 documented as of this encounter
[2025-03-12 20:40] VITALS: BP 119/58; PULSE 74; RESP 20; O2SAT 92
[2025-03-12] MEDS: IPRAT-ALBUT 0.5-2.5 MG/3 ML NEB 1 NEB IH (20:48)
[2025-03-12 21:04] VITALS: O2SAT 92
[2025-03-12 21:28] LABS: Lactate* 1.5 mmol/L (0.5-1.9)
[2025-03-12 21:34] LABS: Hematocrit* 43.7 % (33.0-51.0); Hemoglobin* 14.5 gm/dL (12.0-16.0); Immature Granulocytes Abs Auto 0.03 K/uL (0.00-0.30); Immature Granulocytes Pct Auto 0.3 %; Lymphocytes Absolute Auto 2.30 K/uL (0.90-2.90); Mean Corpuscular HGB Conc 33 gm/dL (32-36); Mean Corpuscular Hemoglobin 30 pg (26-34); Mean Corpuscular Volume 91 fL (80-100); RDW Coefficient of Variation % 13.2 % (11.5-15.5); Red Blood Count* 4.80 m/uL (4.00-5.20); White Blood Count* 10.14 K/uL (4.50-11.00)
[2025-03-12 21:35] LABS: Slide Review Reflex No
[2025-03-12 21:46] LABS: Albumin* 3.9 g/dL (3.3-5.0); Chloride* 103 mmol/L (96-114)
[2025-03-12 21:47] LABS: Potassium* 3.9 mmol/L (3.6-5.1); Sodium* 133 mmol/L (135-149)
[2025-03-12 21:49] LABS: Blood Urea Nitrogen* 21 mg/dL (5-24); Creatinine* 0.6 mg/dL (0.5-1.5); Estimated Glomerular Filt Rate 130 ml/min
[2025-03-12 21:50] LABS: Alanine Aminotransferase* 27 U/L (4-35); Alkaline Phosphatase* 83 U/L (40-150); Anion Gap 9 mEq/L (7-15); Aspartate Amino Transferase* 22 U/L (12-35); Bilirubin Total* 0.6 mg/dL (0.1-1.5); Calcium* 9.0 mg/dL (8.4-10.6); Carbon Dioxide* 21 mmol/L (20-32); Glucose* 99 mg/dL (60-115); Total Protein* 7.5 g/dL (6.0-8.3)
[2025-03-12 22:00] VITALS: BP 124/76; PULSE 98; RESP 20; O2SAT 94
[2025-03-12 22:09] LABS: Appearance Urine Clear (Clear)
--- NOTE | 2025-03-12 22:34 | CRLHL7_ITS ---
For Patients: As a result of the Century Cures Act, medical imaging exams and procedure reports are released immediately into your electronic medical record. You may view this report before your referring provider. If you have questions, please contact your health care provider. INDICATION: Hypoxia. Left upper abdominal pain. TECHNIQUE: CT chest, abdomen and pelvis acquired 91 cc Isovue 370 IV contrast. COMPARISON: CT chest abdomen pelvis 03/01/2025. FINDINGS: CHEST: Cardiovascular structures: No cardiomegaly or pericardial effusion. Main pulmonary artery normal in caliber. No thoracic aortic aneurysm. Mediastinum and asaf: No suspicious lymphadenopathy. Lungs and pleura: Right lower lobe consolidation, decreased compared to prior. No pleural effusion or pneumothorax. Patent central airways. Chest wall and axilla: No suspicious chest wall mass or fluid collection. Presumed REVIEW RN shunt within the superficial soft tissues of the right chest wall. Bones: No acute abnormality. ABDOMEN AND PELVIS: Liver: Unremarkable. Gallbladder and bile ducts: Unremarkable. Pancreas: Unremarkable. Spleen: Unremarkable. Adrenal glands: Unremarkable. Kidneys and bladder: Horseshoe kidney. Moderate bilateral hydronephrosis likely increased compared to prior. Grossly unchanged positioning of bilateral renal calculi. No significant hydroureter. No definite obstructing calculi. Circumferential bladder wall thickening with intraluminal bladder gas. Fernandez catheter noted. GI tract: No bowel obstruction. No suspicious bowel wall thickening. Moderate colonic stool burden. No CT evidence of acute appendicitis. Vascular structures: No abdominal aortic aneurysm. Grossly patent vasculature. Lymph nodes: No suspicious lymphadenopathy. Peritoneum/Retroperitoneum/Abdominal Wall: No ascites or pneumoperitoneum. Presumed REVIEW RN shunt catheter within the superficial soft tissues of the right abdominal wall terminating within the pelvis. Pelvic Organs: Intrauterine device grossly in satisfactory position. Right adnexal cyst/dominant follicle measuring 2.8 cm. Bones and superficial soft tissues: Postoperative changes of the spine. Grossly unchanged presumed fat necrosis within the left gluteal/hip soft tissues. Fatty atrophy of visualized paraspinal and gluteal/lower extremity musculature. IMPRESSION: 1. Moderate bilateral hydronephrosis, likely increased compared to prior exam. Grossly unchanged positioning of bilateral renal calculi. No significant hydroureter. No definite obstructing calculus identified. 2. Circumferential bladder wall thickening may be exaggerated by underdistention, however clinical correlation recommended to exclude cystitis. 3. Moderate colonic stool burden. 4. Decreased right lower lobe pulmonary consolidation, likely reflecting improving pneumonia. Please note that all CT scans at this facility use dose modulation, iterative reconstruction, and/or weight-based dosing when appropriate to reduce radiation dose to as low as reasonably achievable. Dictated by Joshua Edwards MD @ 03/12/2025 11:40:40 PM (Electronically Signed)
[2025-03-12 23:00] VITALS: PULSE 89; O2SAT 92
[2025-03-12 23:54] VITALS: PULSE 98; O2SAT 92
[2025-03-13 00:01] VITALS: PULSE 103; O2SAT 81
[2025-03-13 00:03] VITALS: BP 148/117; PULSE 110; O2SAT 93
[2025-03-13 00:15] VITALS: PULSE 107; O2SAT 87
[2025-03-13 00:32] VITALS: BP 111/78
== END 2025-03-13 00:46 | disposition home or self-care (01) ==
PROVIDERS: Emergency Provider Family Medicine; PCP Pediatrics
DX: J18.9 Pneumonia, unspecified organism (principal)
CPT/HCPCS: 36415; 71045; 71260; 74177; 80053; 81001; 83605; 83690; 85025; 86140; 94761; 99284; 99285; Q9967